=== PATIENT | female | born 1965 | race Caucasian/White ===

== ENCOUNTER 2020-01-28 08:49 | Inpatient (IN) | payer OTHER ==
[~2020-01-28] VITALS: Ht 157.5 cm; Wt 93.0 kg
[~2020-01-28 08:49] MED LIST: ACEROLA C500 MG PO; ADCIRCA20 MG PO; ASPIRIN EC81 MG PO; BABY TOP; BUPROPION HCL100 MG PO; BUPROPION HCL200 MG PO; CEPHALEXIN250 MG PO; CEPHALEXIN500 MG PO; CETIRIZINE HCL10 MG PO; CLINDAMYCIN HC300 MG PO; COLACE CLEAR50 MG PO; COLACE PO; COLACE100 MG PO; COMBIVENT INH14.7 GM INH; COOL TOP; CRANBERRY500 M1 PO; DANDRUFF SHAMP TOP; DILANTIN100 MG PO; DIVALPROEX SOD DR PO; DIVALPROEX SOD500 MG PO; ESTRADIOL1 MG PO; FERROUS SULFAT325 MG PO; FISH OIL 1,2001 EAC1 PO; FISH OIL 1,2001 EACH PO; FUROSEMIDE80 MG PO; GABAPENTIN300 MG PO; HYDROCHLOROTHIA25 MG PO; HYDROCODON-ACE1 EA10 PO; LASIX20 MG PO; LASIX80 MG PO; LETAIRIS10 MG; LETAIRIS10 MG PO; LEVAQUIN500 MG PO; LEVOTHYROXINE112 MCG PO; LEVOTHYROXINE137 MCG PO; LEVOTHYROXINE175 MCG PO; MAPAP325 MG PO; MEDROXYPROGESTE10 MG PO; MELOXICAM15 MG PO; MICARDIS40 MG PO; MICONAZOLE NITRATE TP; MILK OF MA400 MG/5 M PO; NICOTINE PATCH1 EA TD; NORCO 5-325 TA1 EACH PO; OCEAN45 ML NAS; OMEPRAZOLE20 MG PO; ONDANSETRON HCL4 MG PO; PAROXETINE HCL20 MG PO; POTASSIUM CHLO20 ME1 PO; PROAIR HFA INH; PROAIR HFA8.5 GM; PROPRANOLOL HCL10 MG PO; QVAR7.3 G1 INH; RISPERDAL M-TAB4 MG PO; RISPERDAL1 MG PO; RISPERIDONE M-0.5 MG PO; ROBAFEN100 MG/5 M PO; SIMVASTATIN20 MG PO; SOOTHE TOP; SPIRONOLACTONE50 MG PO; TRAMADOL HCL50 MG PO; TRIAMCINOLONE A15 G1 TOP; TROSPIUM CHLORI60 MG PO; TYLENOL PM EX-1 EACH PO; VENTOLIN HFA18 GM INH; VITAMIN B-121000 MC1 PO; VITAMIN C500 M1 PO; VITAMIN D PO; VITAMIN D32000 UNI1 PO; [UNRECOGNIZED DRUG - OTHER] TOP
--- OUTSIDE RECORDS SUMMARY | 2020-01-28 08:52 | XMS ---
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 No recent Security Events currently on file [place]ITERIA MET - [facility] CLAUDIA TALBOT Nurse Practitioner: Family 07/19/2016-Current PHONE: Unknown CLAUDIA TALBOT Primary Care 07/19/2016-Current PHONE: [phone] DAVE [facility] 07/19/2016-[facility] PHONE: [phone] Guidelines Source: [facility] [place] Guidelines Date: 05/29/2019 Care Coordination: Receives mental health services with [facility].\T\nbsp; Please contact [facility] for mental health concerns.\T\nbsp; Kavitha/René Rios:\T\[facility]; [phone]\T\nbs; Gal: [phone]. Carol VISIT COUNT (12 MO.) 2 DAVE Fields TOTAL 2 NOTE: Visits indicate total known visits. ED/UCC VISIT TRACKING (12 MO.) 01/28/2020 08:49 [facility] [place] TYPE: Emergency COMPLAINT: - FEVER, COUGH 05/28/2019 12:[address] 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 - Heart failure, unspecified - Allergy status to other anti-infective agents status - Bipolar disorder, unspecified - Allergy status to sulfonamides status - Other penitentiary (current) drug therapy - Allergy status to other antibiotic agents status - Gastro-esophageal reflux disease without esophagitis - Hypertensive heart disease with heart failure - Epistaxis - Allergy status to penicillin - Chronic obstructive pulmonary disease, unspecified INPATIENT VISIT TRACKING (12 MO.) No inpatient visits to display in this time frame [email or web address]
[2020-01-28] MEDS ORDERED: FUROSEMIDE40 MG PO (13:10)
[2020-01-28] MEDS ORDERED: LEVOTHYROXINE125 MCG PO (13:17)
[2020-01-28] MEDS ORDERED: PAROXETINE HCL40 MG PO (13:18)
[2020-01-28] MEDS ORDERED: RISPERIDONE0.5 MG PO (13:20)
[2020-01-28] MEDS ORDERED: RISPERDAL0.5 MG PO (13:21)
[2020-01-28] MEDS ORDERED: MONTELUKAST SOD10 MG PO (13:23)
[2020-01-28] MEDS ORDERED: BUDESONIDE-FO10.2 G1 INH (13:24)
--- NOTE | 2020-01-28 13:32 | NUR ---
54 YEAR OLD FEMALE PATIENT OF ADMITTED TO CCU ROOM [address] [facility]ACO [facility]. DROPLET ISOLATION. PT IS AWAKE AND ANSWERING QUESTIONS W/O DELAY. AMIN CATH PATENT WITH CLESR YELLOW URINE NOTED. IVF HANGING. PATIENT IS WEARING SIMPLE MASH AT THIS TIME. O2 AT 4 L NC. ADMISSION PROCESS STARTED. TEMP-103.3 VIS AMIN TEMP PROBE.
--- NOTE | 2020-01-28 13:33 | NUR ---
Medications verified using MAR from facility. Patient will use own ambrisentan 10mg tablet and own tadalafil 40mg dose [(2) x 20mg tablets]
--- NOTE | 2020-01-28 14:30 | NUR ---
Artie ALEJO RN HERE TO PLACE PICC LINE. PERMIT SIGNED. PATIENT IS COOPERATIVE.
--- NOTE | 2020-01-28 14:36 | NUR ---
BOLUS LR INFUSING.
--- NOTE | 2020-01-28 16:00 | NUR ---
UNABLE TO PLACE PICC LINE. IV 22 GA STARTED TO L HAND. IV FLUIDS NOW INFUSING. HAS NOT RECIEVED COMPLETLY RECIEVED THE LITER BOLUS OF LR THAT WAS ORDERED IN ER. MODIFIED ASSESSMENT DONE. SCD'S ON.
--- NOTE | 2020-01-28 16:04 | NUR ---
PICC INSERTION NOTE: ASKED BY DR. MONACO TO EVALUATE PATIENT FOR POTENITAL PICC LINE PLACEMENT. AFTER REVIEWING THE CHART AND INTERVIEWING THE PATIENT, NO ABSOLUTE CONTRAINDICATIONS WERE IDENTIFIED. PATIENT WAS ABLE TO SIGN THE CONSENT FORM. PATIENT'S RIGHT ARM WAS EVALUATED FIRST USING THE SITE RITE U/S. PATIENT'S BASILIC, BRACHIAL, AND CEPHALIC WERE IDENTIFIED. PATIENT'S BASILIC AND CEPHALIC WERE NOTED TO BE GREATER THAN 8 FR BY SITE RITE U/S. PATIENT'S BASILIC WAS CHOSEN FIRST TO ATTEMPT. AFTER FOLLOWING CDC RECOMMENDED GUIDELINES FOR STERILE PROCEDURE, PATIENT'S RIGHT ARM WAS PREPPED. THE BASILIC VEIN WAS ACCESSED TWICE, WITH THE FIRST ATTEMPT BEING UNSUCCESSFUL AT ADVANCING THE IV CATHETER. SECOND ATTEMPT WAS MADE AT A PROXIMAL SPOT A COUPLE CM HIGHER, AND WAS ACCESSED EASILY. THE GUIDEWIRE WOULD NOT ADVANCE PAST A CERTAIN POINT AND RESISTANCE WAS MET. THIS VEIN WAS DEACCESED AND LEFT ALONE. THE CEPHALIC VEIN WAS THEN ATTEMPTED AND EASILY ACCESSED. THE GUIDEWIRE THREADED EASILY INTO THE VEIN, WELL THE INTRODUCER. THE PICC HOWEVER DID NOT THREAD EASILY PAST A CERTAIN POINT. PATIENT'S BODY WAS REPOSITIONED AND ARM REPOSITIONED IN WAYS TO FACILITATE THE PICC ADVANCING EASIER. THE [employer] MAGNET TIP DETECTION DEVICE DID NOT SHOW THE TIP OF PICC TO BE IN OPTIMAL PLACE. AFTER 3-4 ATTEMPTS TO REPOSITION THE PICC, A DRESSING WAS APPLIED AND A CHEST XRAY TAKEN. THIS SHOWED THE TIP OF THE PICC TO BE CURLING BACK UPON ITSELF AND NOT IN ACCEPTABLE POSITION. FINAL ATTEMPT WAS MADE TO REPOSITION THE LINE, AGAIN UNDER STERILE PROCEDURE, HOWEVER THE PICC WAS PULLED BACK TOO FAR AND NOT ADVANCEABLE. A P RESSURE DRESSING WAS APPLIED OVER THE INSERTION SITE AND THE RIGHT ARM WAS LEFT ALONE. DR. MONACO UPDATED ON THESE ATTEMPTS. PATIENT TOLERATED THIS PROCEDURE FAIRLY WELL, BUT WAS VERY ANXIOUS ABOUT ANY IV POKES.
--- NOTE | 2020-01-28 16:22 | NUR ---
PATIENT IS IN ISOLATION. IS FROM [facility]. SPOKE WITH CAREGIVER MARVIN OBRIEN [phone] BY PHONE. SHE STATES PATIENT IS FULLY AMBULATORY WITHOUT DEVICES. SHE IS ABLE TO ANSWER QUESTIONS, BUT DOES NOT ALWAYS TRUSTWORTHY WITH CORRECT ANSWERS. PATIENT HAS NOT FAMILY INVOLVEMENT, NO POLST OR ADV DIRECTIVE. SHE HAS OWN TEETH, HAS PARTIALS BUT WON'T WEAR THEM. NO HEARING AIDS. WEARS GLASSES. SHE IS ON 1500ML FLUID RESTRICTION, 2000 NA RESTRICTION AND 1500 CALORIE RESTRICTION. SHE WEARS 02 2LNC AT REST, 4LNC WITH ACTIVITY, AND 5L WITH BIPAP AT NIGHT. THEY CAN BRING HER BIPAP IN IF NEEDED. THEY INTEND FOR HER TO RETURN HOME AT DISCHARGE UNLESS THEY CANNOT PROVIDE NEEDED CARE. CM WILL CONTINUE TO FOLLOW.
--- NOTE | 2020-01-28 16:28 | NUR ---
RESTFUL AT THIS TIME.
--- NOTE | 2020-01-28 17:30 | NUR ---
TOOK DINNER WELL. VERY TIRED. RESP RATE NOW 18 BPM.
--- NOTE | 2020-01-28 19:31 | NUR ---
.REPORT TO NEXT SHIFT. PATIENT IS SLEEPING. NO DISTRESS NOTED
--- NOTE | 2020-01-28 20:20 | NUR ---
SHIFT REPORT WAS RECEIVED FROM MARANDA HAJI. ASSESSMENT COMPLETED AT THIS TIME. PT WAS DOZING, BUT WOKE EASILY WHEN I ENTERED ROOM. SHE IS ALERT/ORIENTED. REPORTS CHEST PAIN FROM COUGHING, UNABLE TO RATE ON SCALE OF 10, NON-VERBAL PAIN RATING 1/10. PT HAS TEMP OF 100.8 PER AMIN TEMP PROBE, PRN TYLENOL GIVEN. LUNGS COARSE/DIM, 4L O2 VIA NC IN PLACE. SCHEDULED BREATHING TREATMENT GIVEN. HR REGULAR. BOWEL TONES ACTIVE. IV SITES PATENT, IVF INFUSING WNL. SKIN GROSSLY INTACT, SCATTERED BRUISES NOTED. AMIN CATH CARE DONE. PT TOOK EVENING MEDICATIONS WITHOUT ISSUE. NO FURTHER REQUESTS AT THIS TIME, CALL LIGHT WITHIN REACH.
--- NOTE | 2020-01-28 22:37 | NUR ---
IN TO CHECK ON PT, WHO IS RESTING COMFORTABLY. 7-UP AND JELLO PROVIDED PER REQUEST. TEMP REMAINS ELEVATED AT 100.9, WILL CONTINUE TO MONITOR.
--- NOTE | 2020-01-29 00:45 | NUR ---
ASSESSMENT COMPLETED. PT DENIES PAIN. PRN TYLENOL GIVEN FOR ELEVATED TEMP 100.6. LUNGS REMAIN COARSE/DIM, 4L NC IN PLACE, SCHEDULED BREATHING TREATMENT GIVEN. HR REGULAR. AMIN REMAINS PATENT, DRAINING FREELY. PT DENIES NEEDS AT THIS TIME, CALL LIGHT WITHIN REACH.
--- NOTE | 2020-01-29 02:11 | NUR ---
PT APPEARS TO BE SLEEPING AT THIS TIME, NO APPARENT DISTRESS. RESPIRATIONS ARE EVEN AND UNLABORED, 4L O2 VIA NC IN PLACE. AMIN DRAINING FREELY. HR: 75, RR: 13, SPO2: 91%. WILL ALLOW FOR REST AND CONTINUE TO MONITOR.
--- NOTE | 2020-01-29 04:14 | NUR ---
ASSESSMENT COMPLETED. PT SLEEPING, APPEARS COMFORTABLE. LUNGS REMAIN SLIGHTLY COARSE AND DIM, INCREASED O2 TO 5L SINCE SPO2 WAS 88% ON 4L. HR REGULAR. BOWEL TONES ACTIVE. AMIN PATENT AND DRAINING FREELY. WILL ALLOW FOR REST AND CONTINUE TO MONITOR.
--- NOTE | 2020-01-29 05:44 | NUR ---
PT REPORTED A BLOODY NOSE. HUMIDIFICATION ADDED TO OXYGEN WHICH REMAINS AT 5L. MORNING MEDICATIONS ADMINISTERED WITHOUT ISSUE. FRESH ICE WATER AND A WARM BLANKET PROVIDED. CALL LIGHT WITHIN REACH, NO FURTHER REQUESTS AT THIS TIME.
--- NOTE | 2020-01-29 07:30 | NUR ---
REPORT RECIEVED. PATIENT IS ASLEEP IN BED. NO DISTRESS NOTED.
--- NOTE | 2020-01-29 08:00 | NUR ---
WOKE PATIENT. MODIFIED ASSESSMENT DONE. PATIENT REMAINS IN DROPLET ISOLATION. PAPR BEING USED BY RN AT THIS TIME.
--- NOTE | 2020-01-29 08:10 | NUR ---
DR. MONACO HERE TO SEE PATIENT, ORDERS RECIEVED TO DECREASE IVF TO 65 ML. BRENNAN PRINGLE DC'Angel Luis. UP TO COMMODE.
--- NOTE | 2020-01-29 08:20 | NUR ---
LARGE STOOL, THEN TO CHAIR FOR BREAKFAST.
--- NOTE | 2020-01-29 11:25 | NUR ---
PATIENT IS SLEEPING. NO DISTRESS NOTED.
--- NOTE | 2020-01-29 12:42 | NUR ---
SITTING UP IN BED FOR LUNCH.
--- NOTE | 2020-01-29 13:10 | NUR ---
Visit deferred as awaiting covid results. Spoke with Rn and pt is currently sleeping and unable to speak on the phone. Pt. lives at [facility] and [place] [phone] is her CG. Will check with RN's tomorrow for follow up. Plan is for pt to return to [facility] when medically cleared.
--- NOTE | 2020-01-29 13:14 | NUR ---
INC OF STOOL AND URINE UP TO BR TO CLEAR PATIENT. TRANSFERS WELL. THEN TO CHAIR TO FINISH LUNCH.
--- NOTE | 2020-01-29 15:15 | NUR ---
CHILLING. REMAINS IN CHAIR. TEMP AX 101.2. TO COMMODE WITH ASIST TO EXPELL URINE AND STOOL THEN TO BED. HR TO 124.
--- NOTE | 2020-01-29 15:20 | NUR ---
DR. SALAS UPDATED. BC X 2 ORDERED. IBUPROFEN 200 MG ORDERED AND GIVEN. PATIENT IN BED WITH HOB ELEVATED. C/O RIGHT SHOULDER PAIN. STATES SHE GETS THIS TYPE OF PAIN WHEN SHE GETS TENSE.
--- NOTE | 2020-01-29 16:30 | NUR ---
ASSESSMENT UNCHANGED. INC OF URINE AND STOOL.
--- NOTE | 2020-01-29 19:26 | NUR ---
TOOK DINNER WELL. INC OF URINE. ATTENDS OFF. STOOD PATIENT AT BESIDE TO MOVE TO HOB. REMAINS SOB WITH EXERTION. OXYMASK AT 4 L
--- NOTE | 2020-01-29 21:00 | NUR ---
SHIFT REPORT WAS RECEIVED FROM MARANDA HAJI. ASSESSMENT COMPLETED AT THIS TIME. PT REMAINS IN DROPLET AND CONTACT PRECAUTIONS. PT DENIES PAIN. TEMP: 100.6, PRN TYLENOL GIVEN. LUNGS LIGHTLY COARSE/DIM, 4L OXYMASK IN PLACE, DENIES SOB AT REST, SCHEDULE VENTOLIN GIVEN. HR REGULAR. BOWEL TONES ACTIVE. PT REPORTS URINE INCONTINENCE, NEW BED LINENS AND CHUX PROVIDED. PT UP TO BSC WITH SBA DURING BED CHANGE, REPORTS MILD SOB WITH ACTIVITY. PT VOIDED ANOTHER 100 AND HAD SMEAR OF BM. PERICARE PROVIDED AND PT RETURNED TO BED. IV SITES PATENT, IVF INFUSING WNL. CALL LIGHT WITHIN REACH. DISCUSSED PLAN OF CARE WITH PT AND ANSWERED ALL QUESTIONS. NO FURTHER REQUESTS AT THIS TIME.
--- NOTE | 2020-01-30 01:00 | NUR ---
WENT INTO ROOM ABOUT 0000 BECAUSE PT DESATURATED TO 85% ON 4L. COULD NOT GET SATS TO MAINTAIN ABOVE 90% UNTIL OXYGEN WAS AT 12L. LUNG SOUNDS WERE UNCHANGED FROM PREVIOUS ASSESSMENT AND PT WAS ABLE TO SPEAK IN FULL SENTENCES AND ANSWER QUESTIONS APPROPRIATELY. CALLED Sharyn ZAMBRANO FOR ADVICE. WE TRIED OTHER SPO2 PROBES AND AFTER BOOSTING PT UP IN BED AND SITTING UP HER HEAD OF BED DID SATURATIONS FINALLY START TO INCREASE. OXYGEN WAS THEN ABLE TO BE TITRATED DOWN TO 6L. PT INCONTINENT OF URINE, UP TO BS TO VOID 100ML MORE WHILE BED WAS CHANGED. PERICARE, NEW CHUX PROVIDED, PT THEN RETURNED TO BED. TYLENOL GIVEN FOR TEMP OF 100.5. IVF INFUSING WNL. CALL LIGHT WITHIN REACH.
--- NOTE | 2020-01-30 05:30 | NUR ---
ASSESSMENT COMPLETED AND MEDICATIONS ADMINISTERED. PT REPORTS 5/10 RIGHT SHOULDER PAIN, PRN TYLENOL GIVEN. LUNGS COARSE, SLIGHT EXPIRATORY WHEEZE NOTED IN UPPER LOBES, SCHEDULED BREATHING TREATMENT GIVEN. PT INCONTINENT OF LARGE AMOUNT OF URINE, VOIDED 50ML MORE WHILE ON BSC WHILE I CHANGED CHUX. YARI CARE COMPLETED. PT PROVIDED WITH ICE WATER AND JUICE. NO FURTHER REQUESTS AT THIS TIME, CALL LIGHT REMAINS WITHIN REACH, PHONE ALSO PLACED WITHIN REACH PT IS EXPECTING A PHONE CALL FROM A FRIEND THIS MORNING.
--- NOTE | 2020-01-30 06:38 | NUR ---
PT DESATURATED TO 84%, ELEVATED HEAD OF BED AND ENCOURAGED HER TO TAKE SOME DEEP BREATHS. OXYGEN TITRATED TO 8L VIA OXYMASK.
--- NOTE | 2020-01-30 08:18 | NUR ---
PATIENT ALERT AND ORIENTED, REPORT RECEIVED FROM COMPUTER TEACHER RN'S. PATIENT O2 FLOWING AT 12L VIA OXIMASK. O2 SAT AT 90% WHEN RESTING IN BED. STATES STOMACH FEELS A LITTLE UPSET. READY TO ORDER BREAKFAST. UP TO COMMODE WITH 1-2 PERSON ASSIST. HAD SOME URINE OUTPUT. BACK TO BED.
--- NOTE | 2020-01-30 08:30 | NUR ---
Pt was discussed in [address] Costello. He states his concern as there is not a Polst in place. He is concerned at pt is using 12Lo2 and is febrile. I will contact [facility] to see what is required for a Polst to be completed. Called and spoke with Neda from [facility]. She states there is team who can meet and make this decision. Due to Covid virus most are working from home. She will call and check if they can meet by conference line. Hospital line number given and access code by email with meeting request for 3pm meeting. She will forward to other members. She and supervisor dimension warehouse have multiple question about pt. Requested they speak with Dr Costello at 3 pm and ask questions.
--- NOTE | 2020-01-30 09:33 | NUR ---
DR Costello and Beena RT in room to see patient. Also, Mary RN in room.
--- NOTE | 2020-01-30 09:43 | NUR ---
RT in room with patient. CPAP in place on 8L at 40% with an SpO2 of 92%. Respiratory rate of 30 with labored breaths. AM medications given. Patient tearful, emotional support provided by nursing staff.
--- NOTE | 2020-01-30 11:21 | NUR ---
Patient laying in bed, awake and alert. Gives thumbs up to nursing staff through glass. Patient wearing CPAP at 10L with an SpO2 of 92%. Respiratory rate of 26. No needs at this time, call light within reach.
--- NOTE | 2020-01-30 12:16 | NUR ---
UP TO CHAIR WITH STANDBY ASSIST. USING OXYMASK WHILE UP. ASKING HER FOR SPUTUM SAMPLE. CHANGING LINENS BECAUSE HAD LARGE AMOUNT OF URINE INCONTINENCE.
--- NOTE | 2020-01-30 12:41 | NUR ---
BACK TO BED, STATES NOT WANTING TO EAT LUNCH NOW. STOMACH NOT FEELING VERY GOOD. DOESN'T FEEL LIKE THROWING UP. CPAP BACK ON. BACK TO BED AFTERING BEING UP IN CHAIR AND USING COMMODE. WAS UP FOR ABOUT 40 MINUTES.
--- NOTE | 2020-01-30 14:08 | NUR ---
DR SALAS TALKING WITH PATIENT VIA BABY MONITOR. I HELPED HER UP TO USE COMMODE AND URINATE. BACK TO BED. USING OXYMASK CURRENTLY. PLAN FOR RT TO COME IN AND SETUP CPAP MACHINE.
--- NOTE | 2020-01-30 15:00 | NUR ---
Conference call with support people from [facility]. Members on the call: myself, Dr. Costello, Mynor Franz, Marva Vasquez Dean For Student Affairs, Radha Villa Residential career resource technician, Leticia Mills rn, Nadiya Alba Program Directory, Filemon Luz [employer]ability [employer] [place], Wilton Morley Csr. Discussion was held regarding DNR/DNI for Margarita Rowley as there was posibility pt would be intubated earlier today. Dr. Costello was able to speak with pt and felt she was able to speak for herself and after speaking with her twice she did not want to be intubated. Pt is her own decision maker/guardian. He explained to group, pt has pulmonary hypertension which would make her very high risk to use a ventilator. Great difficulty to extubate and get her off the vent. Explained pt has been on CPAP, oxygen levels have doubled. Concern is intubation if patient status worsens. Pt. does not have Polst or Health Directive in writing. Pt requested he call her friend, Britta which he did. Discussed Polst was completed, but can always be voided if patient changes her mind. Questions were answered by Dr. Costello and he excused himself and he had to leave. Further conversation regarding plan for when and how pt's should return and updated if 02 is needed. Explained if o2 is needed, these cases will be considered acute and insurance/medicare will not pay for initial 02. DME will require payment up front. Marva states concern they do not have PPE. Stated understanding, everyone is having the same issues. They request orders when pt returns and reminded Dr will write discharge orders and sign and a DC summary. All will be faxed when pt is nearing discharge. Requested if case coordinator could review Polst with patients and have them completed prior to hospital admission. Asked if they need Polst forms and they state they have. Informed we are asking all PRISON, AFC, SNFs to have Polsts completed and bring to the ER. Explained we just need to know what the pt's wishes are, and we will follow.
--- NOTE | 2020-01-30 16:20 | NUR ---
PATIENT CALLED, SAYING NEEDS BED CHANGED WAS INCONTINENT OF URINE. LINENS CHANGED. UP TO CHAIR DURING THIS. TOLERATED WELL. USING OXYMASK AT 7L. O2 SATS 92-97%. BACK TO BED. PRN TYLENOL GIVEN FOR HEADACHE 6/10 PAIN.
--- NOTE | 2020-01-30 17:01 | NUR ---
UNABLE TO LISTEN WELL TO PATIENT LUNG SOUNDS AND ABD SOUNDS DUE TO ME WEARING THE PAPR MACHINE.
--- NOTE | 2020-01-30 17:10 | NUR ---
HAS BEEN REQUIRING LESS O2 TODAY. STARTED USING CPAP AND THIS HAS HELPED. TOLERATING WELL. WEAKNESS, HAS BEEN UP TO COMMODE SEVERAL TIMES, WEARING ATTENDS. BED REST WITH COMMODE.
--- NOTE | 2020-01-30 18:23 | NUR ---
At about 1745 patient calling for help, motioning like she can't catch her breath. Patient took off CPAP and didn't put on other oxygen. Mary LOW putting on PPE quickly and patient O2 level dropped down to 72% on room air. Mary in room and helped patient place CPAP back on. RT called and coming. O2 level increased to 75% from 30%. Over the course of about 10 minutes SPO2 level back up to 92%. RT watching monitor and instructing Mary LOW on settings. Oxymask placed in reach of patient and instructed to place on face if she takes off her CPAP.
--- NOTE | 2020-01-30 18:41 | NUR ---
STATES HEADACHE GONE, TRYING TO EAT SOME JELLO AND WHEN TAKING OFF O2 MASK FOR EVEN 1 MINUTE HER SATURATIONS DROP. INSTRUCTED HER TO KEEP O2 MASK ON MUCH POSSIBLE. USING OXYMASK.
--- NOTE | 2020-01-30 18:55 | NUR ---
STATES FEELING WHEEZY AND TIGHTNESS WHEN BREATHING. INHALER THAT WAS SCHEDULED FOR 8PM GIVEN EARLY. RT NOTIFIED.
--- NOTE | 2020-01-30 20:15 | NUR ---
SHIFT REPORT WAS RECEIVED FROM MARANDA ROUSSEAU. ASSESSMENT COMPLETED AT THIS TIME. PT DENIES PAIN. PT TOOK EVENING MEDICATIONS WITHOUT ISSUE. PT INCONTINENT OF URINE, NEW ATTENDS AND PERICARE PROVIDED. IV SITES PATENT, SALINE LOCKED. SCD'S IN PLACE. UNABLE TO AUSCULTATE DURING ASSESSMENT DUE TO PAPR PPE. PT DENIES SOB WHILE AT REST. CPAP PLACED ON PT. CALL LIGHT WITHIN REACH, NO FURTHER REQUESTS AT THIS TIME.
--- NOTE | 2020-01-30 22:03 | NUR ---
PATIENT APPEARS TO BE SLEEPING, NO APPARENT DISTRESS. CPAP REMAINS IN PLACE. VITAL SIGNS STABLE. WILL ALLOW FOR REST AND CONTINUE TO MONITOR.
--- NOTE | 2020-01-30 23:37 | NUR ---
PT CALLED TO REPORT THAT SHE HAD BEEN INCONTINENT OF URINE. PERICARE AND NEW ATTENDS PROVIDED. ASSESSMENT COMPLETED. PT HAS TEMP OF 100.8, PRN TYLENOL GIVEN. CONTINUES TO DENY PAIN AND SOB. CPAP REMOVED FOR MEDICATIONS AND THEN REPLACED, REMAINS AT 50%. PT DENIES FURTHER REQUESTS AT THIS TIME, CALL LIGHT WITHIN REACH.
--- NOTE | 2020-01-31 01:50 | NUR ---
PT HAD REMOVED CPAP TO TAKE A DRINK AND WAS UNABLE TO PUT IT BACK ON WITHOUT ASSISTANCE. RECHECKED TEMP AFTER TYLENOL DOSE, TEMP INCREASED TO 102.1, WILL RECHECK AND READMINISTER TYLENOL IF NEEDED. PT DENIES INCONTINENCE AT THIS TIME. CPAP BACK ON PT. CALL LIGHT WITHIN REACH.
--- NOTE | 2020-01-31 04:20 | NUR ---
ASSESSMENT COMPLETED. PT DENIES PAIN. TEMP HAS TO 99.1. SPO2 HAS BEEN HOVERING 88-89% ON CPAP@50%, SPOKE WITH Sharyn VAZQUEZ, AND INCREASED FIO2 TO 60%, SATS NOW 91-92%. PT DENIES SOB. PT INCONTINENT OF LARGE AMOUNT OF URINE, NEW ATTENDS AND PERICARE PROVIDED. NO FURTHER REQUESTS AT THIS TIME, CALL LIGHT WITHIN REACH.
--- NOTE | 2020-01-31 06:30 | NUR ---
IN TO GIVE MORNING MEDICATIONS, PT REMAINS AFEBRILE AT 98.5. INCONTINENT OF URINE, NEW ATTENDS AND PERICARE PROVIDED. BREAKFAST ORDER OBTAINED AND CALLED DOWN. FRESH WATER AND APPLE JUICE PROVIDED. PT PLACED BACK ON CPAP. NO FURTHER REQUESTS AT THIS TIME.
--- NOTE | 2020-01-31 08:30 | NUR ---
Pt discussed in MDT. Remains on CPAP.
--- NOTE | 2020-01-31 08:58 | NUR ---
BOTH IV SITES ARE INTACT, NO REDENESS OR SWELLING NOTED, PT DENIES PAIN AT EITHER SITE WITH FLUSH. PT REMINDED TO PLEASE TELL NURSING STAFF IF IV SITES BECOME PAINFUL.
--- NOTE | 2020-01-31 09:00 | NUR ---
Spoke with Diane Barber per antonio ellis. Pt. eating and has CPAP off. Pt easily becomes sob, and has difficulty speaking. Feeling Ok. Updated friend, Lali Trinh, called and will call later. Pt states, "have a beautiful day". I thanked her.
--- NOTE | 2020-01-31 09:10 | NUR ---
Received call from Filemon Luz, [employer] [place]. He is attempting to call to Margarita. Informed I will transfer as he was transfered to . Call transferred to CCU.
--- NOTE | 2020-01-31 09:15 | NUR ---
AT APPROXIMATLY 0910 ASSISTED PT TO CALL FRIEND JUAN ALLEN, PT ONLY ABLE TO LEAVE A VOICE MAIL.
--- NOTE | 2020-01-31 09:32 | NUR ---
PT GIVEN 500 MG PO TYLENOL FOR C/O 03/09 HEADACHE. PT STATES "JUST COUGHING, IT'S MAKING MY HEAD ACHE"
--- NOTE | 2020-01-31 09:50 | NUR ---
PT PLACED ON VAPOTHERM HIGHFLOW NASAL CANULA, ABLE TO MAINTAIN SATS 92-95% WITH FIO2 OF 85%. PT STATES "THIS THING IS REALLY LOUD". MASK ALSO PLACED OVER PT MOUTH AND NOSE PER PROTOCOL, PT WILFRED WELL.
--- NOTE | 2020-01-31 10:40 | NUR ---
ALL LINENS CHANGED ON BED, YARI CARES DONE, CLEAN ATTENDS IN PLACE. PT GIVEN PARTIAL BEDBATH SHE STATES "I'M REALLY WORN OUT". PT SCOOTED UP IN BED, AND SITTING UP TO EAT BREAKFAST, PT REQUIRES ASSISTANCE TO EAT SHE IS TREMULOUS. PT ONLY ABLE TO WILFRED 25% OF HER BREAKFAST. AFTER BREAKFAST ATTEMPTED TO CALL PT FRIEND JUAN ALLEN FOR A SECOND TIME THIS MORNING, LEFT A VOICEMAIL PER PT REQUEST.
--- NOTE | 2020-01-31 12:08 | NUR ---
pt off cpap for a break and to eat lunch. pt on vapotherm at 40L 85% FIO2.
--- NOTE | 2020-01-31 12:40 | NUR ---
pt back on cpap for rest, pt finished with lunch. pt reports headache has resolved. pt able to sharon 25% of lunch. pt talked on the phone with caregiver Radha for approximatly 5 min. IV sites are intact, no redness or swelling noted, fluids and flushes infuse easily, pt denies pain at either site.
--- NOTE | 2020-01-31 13:02 | NUR ---
pt appears to be sleeping at this time with cpap in place.
--- NOTE | 2020-01-31 14:09 | NUR ---
AT APPROXIMATLY 1330 PT TOOK CPAP OFF TO SCRATCH/BLOW NOSE. WENT INTO ROOM TO ASSIST PT WITH SUPPLIMENTAL 02. PT REFUSED CPAP AT THIS TIME, WAS AGREEABLE TO VAPO THERM, SETTING CHANGED TO 35L FLOW, TEMP 33, FIO2 OF 80% PER YOLIS FROM RT. PT SEEMS TO BE ABLE TO WILFRED BETTER. PT CHANGED FOR INCONTINENCE OF URINE, LARGE AMOUNT. PT COOPERATIVE WITH CHANGING, ABLE TO LIFT HIPS TO HELP, FOLLOWS DIRECTIONS WELL. PT REQUESTED AND WAS GIVEN 2 WARM BLANKETS. CURRENT ORAL TEMP OF 99.5. PT GIVEN SIPS OF WATER AND JUICE. PT STATES "I'M SPOILED NOW".
--- NOTE | 2020-01-31 14:18 | NUR ---
Notified by Dr. Costello pt's Covid test returned negative. Called and updated Radha. She is relieved and states all staff have been very concerned about patients and staff exposure. She hopes this will help everyones concern.
--- NOTE | 2020-01-31 14:52 | NUR ---
PT ASSISTED UP TO THE CHAIR FROM THE BED. PT AT THIS TIME IS ON 15L OXYMASK SHE HAS REQUESTED A BREAK FROM THE VAPOTHERM AND THE CPAP. PT GIVEN PO 500 MG TYLENOL FOR TEMP OF 99.5, PT ALSO GIVEN CEPACOL THROAT LOZENGE FOR C/O SORE THROAT. PT REPORTS SOME SLIGHT LIGHTHEADEDNESS WITH ACTIVITY. PT ATTEND CHANGED FOR INCONTINENCE OF URINE. PT IS ALERT AND ORIENTED X4, COOPERATIVE AND POLITE. PT HAS CALL LIGHT WITHIN REACH.
--- NOTE | 2020-01-31 14:56 | NUR ---
UNABLE TO VISIT PT DUE TO PRECAUTIONS, WILL FOLLOW
--- NOTE | 2020-01-31 15:30 | NUR ---
IV SITE IN RT AC DC'D IT WAS NOT PATIENT. PT WILFRED WELL, TIP OF CATH IS INTACT.
--- NOTE | 2020-01-31 16:50 | NUR ---
PT ASSISTED BACK TO BED FROM CHAIR, TWO PERSON ASSIST. CHANGED INCONTINENT ATTENDS. PT HAS CALL LIGHT WITHIN REACH. WILFRED ACTIVITY WELL.
--- NOTE | 2020-01-31 17:24 | NUR ---
PATIENT ARRIVED BACK FROM PACU AT 1705. PATIENT IS ALERT AND HAVING SOME PAIN. PATIENT RECIEVED FENTANYL PRIOR TO TRANSFER. PATIENT IS NOTED TO HAVE A LOT OF OOZING FROM THE SITE. MD STEVENSON IS AWARE PER REPORT FROM PACU. NO OTHER NEEDS AT THIS TIME. WILL CONTINUE TO CLOSELY MONITOR.
--- NOTE | 2020-01-31 19:05 | NUR ---
AT ABOUT 1830 PT HAS TAKEN OFF CPAP TO EAT DINNER. PT O2 SATS IN LOW 80% WITH ROOM AIR. PT PLACED ON 15L OXYMASK. PT RE-TESTED FOR COVID VIA NASOPHARONGEAL SWAB TO BOTH NARES. PT WILFRED WELL. PT GIVEN FRESH JUICE AND A WARM BLANKET, THEN PLACED BACK ON CPAP.
--- NOTE | 2020-01-31 20:15 | NUR ---
PT ASSESSMENT, VS AND I&O COMPLETED. PT TOLERATING VAPOTHERM @35L, 90% FIO2 WELL. PT VERBALIZES UNDERSTANDING OF THE NEEDS FOR O2. PT STATES "EVERYONE AROUND HER HAS BEEN SO NICE.", PT COOPERATIVE, ORIENTED X3. PT ASSITS WITH ADJUSTMENT OF VAPOTHERM NOSE PIECE. IV CDI, WNL, FLUSHED WELL. TREMORS NOTED. SCATTERED BRUISING WITH A LARGE BRUISE NOTED ON RUE FROM PICC LINE ATTEMPT. SCDs IN PLACE, PT TOLERATING SCDs WELL. REDNESS NOTED AROUND NARES. PT DEINIES PAIN AT THIS TIME. COUGH IS OCCASSIONAL WITH THIN, BLOODY SPUTUM THAT THE PT SPITS INTO KLEENEX. BRIEFS CHANGED WITH PT ASSIST. PT MOVED HERSELF UP IN BED AT RN REQUEST. UNABLE TO ASSESS LUNG SOUNDS DUE TO PPE PAPR. RESP RATE EVEN, SHALLOW. SCHEDULED MEDS PROVIDED. PT REQUESTS A SNACK, PROVIDED. NO OTHER NEEDS AT THIS TIME. CALL LIGHT IN REACH.
--- NOTE | 2020-01-31 22:02 | NUR ---
PT COMPLAINS OF HEADACHE. PRN PAIN MED PROVIDED. PT PLACED ON CPAP FROM VAPOTHERM TO SLEEP. HR 84, SPO2 94%. ICE WATER PROVIDED. PT REPOSITIONED. NEW SPO2 FINGER MONITOR PROVIDED. NO OTHER NEEDS. CALL LIGHT IN REACH.
--- NOTE | 2020-01-31 22:30 | NUR ---
PT HAS REPEATEDLY REMOVED THE CPAP TO RID HERSELF OF SPUTUM. RT NOTIFIED AND PT HAS BEEN PLACED BACK ON VAPOTHERM. NO OTHER NEEDS AT THIS TIME. CALL LIGHT IN REACH. HR SR @ 72. SPO2 94%, VAPOTHERM 35L @ 90% FIO2. NO OTHER NEEDS AT THIS TIME. CALL LIGHT IN REACH.
--- NOTE | 2020-01-31 23:23 | NUR ---
PT RESTING IN BED, EYES CLOSED. RR 24, EVEN, SHALLOW. HR SR @75. VAPOTHERM 35L @ 90%FIO2. CALL LIGHT IN REACH.
--- NOTE | 2020-01-31 23:58 | NUR ---
PT RESTING IN BED, EYES CLOSED. HR SR @ 78. RR 24, EVEN, SHALLOW. VAPOTHERM 35L @90% FIO2. CALL LIGHT IN REACH. SOUND MONITOR ON.
--- NOTE | 2020-02-01 00:20 | NUR ---
PATIENT CALLING OUT FOR NURSE TO PUT HER HEAD DOWN. ASSURED PATIENT STAFF WOULD BE IN A FEW MINS. PATIENT CONTINUED TO ASK AND DID NOT APPEAR TO UNDERSTAND THIS RN OVER THE MONITOR. WHEN STAFF ENTERED ROOM. PATIENT DOES NOT ANSWER QUESTIONS APPROPRIATELY. UNSURE IF STAFF IS UNABLE TO HEAR STAFF OR IS CONFUSED. ORAL TEMP 100.4 F. O2 SAT 89% ON VAPOTHERM 90% Fi02. BP 88 SYSTOLIC. PATIENT APPEARS DROWSEY AND DIAPHORETIC. MD CONTACTED. RN AT BEDSIDE.
--- NOTE | 2020-02-01 00:47 | NUR ---
MARKY RN IN ROOM REPORTING PT IS LETHARGIC, NOT HELPING WITH REPOSITIONG. BP 88/50, RR 26. SPO2 90% ON VAPOTHERM A35L AT 90%. PT ALSO HAS A TEMP OF 100.4F ORALLY. NOTIFIED. MD COMING TO THE ROOM TO ASSESS.
--- NOTE | 2020-02-01 01:47 | NUR ---
ORDERS RECEIVED FOR LEVOPHED, AMIN CATH, AND VBG. NEW IV SITE ESTABLISHED IN RIGHT UPPER ARM. LEVOPHED STARTED, ADEQUATE BP AT 5 MCG/MIN. GOAL OF MAP > 60. AMIN PLACED. 75 MLS OUT OF CLEAR YELLOW URINE. ORAL TYLENOL PROVIDED. PATIENT TOLERATING CPAP WITH PRESSURE 15, 65% FiO2. RR 25-35. PATIENT IS RESPONSIVE BUT CONTINUES TO BE DROWSEY.
--- NOTE | 2020-02-01 02:42 | NUR ---
SCHEDULED MEDICATION PROVIDED. LEFT HAND IV WNL, CDI, FLUSHED WELL. RIGHT AC IV CDI, WNL, IV MEDICATION INFUSING. AXILLARY TEMP 101.0F. COVERS REMOVED EXCEPT SHEET. CPAP ON, RR 20, EVEN, SHALLOW. NO OTHER NEEDS, CALL LIGHT IN REACH.
--- NOTE | 2020-02-01 03:25 | NUR ---
LEVOPHED TITRATED TO ACHEIVE MAPS GREATER THAN 60. LEVOPHED HAD BEEN INFUSING AT 2 MCG/MIN FOR LAST HOUR. LAST TWO BP HAD MAP < 60, TITRATED TO 4 MCG/MIN. NEXT BP WAS 100/39 WITH MAP OF 55. WILL CONTINUE TO MONITOR. PATIENT IS DROWSEY BUT RESPONDS TO NAME. ON CPAP, UNABLE TO ANSWER QUESTIONS AT THIS TIME. AXILLARY TEMP 100.4 F. URINE OUTPUT 775 ML AFTER LASIX WAS GIVEN. IV SITE IN RIGHT UPPER ARM WNL.
--- NOTE | 2020-02-01 03:48 | NUR ---
ASSESSMENT COMPLETED. IVs WNL, CDI. CMS INTACT. CAPILLARY REFILL < 3 SECONDS. AMIN WNL, LIGHT YELLOW URINE, PT TOLERATING WELL. CPAP @ 65%, SPO2 90%. HR SR @ 79. UNABLE TO ASSESS LUNG, HEART AND BOWEL TONES DUE TO PAPR PPE. RR EVEN SHALLOW @ 25 PER MIN. SKIN WAR, MOIST, FLUSHED. NO EDEMA NOTED. PT ORIENTED TO PERSON AND PLACE. NO OTHER NEEDS AT THIS TIME. CALL LIGHT IN REACH. SOUND MONITOR ON.
--- NOTE | 2020-02-01 04:32 | NUR ---
PATIENT TACHYCARDIC UP TO 160'S. NOTIFIED BY VEE LOW. LEVOPHED TITRATED DOWN AND IN STAND BY. PATIENT'S LAST BP 94/42 (52). PHENYLEPHRINE IN STAND BY. PATIENT IS VERY DROWSY. RR 25. O2 SAT 88-92% ON CPAP AT 65% Fi02. BREATHING APPEARS MORE LABORED. PATIENT WAKES TO HER NAME, SAYS "YES" WHEN ASKED IF SHE IS DOING ALRIGHT.
--- NOTE | 2020-02-01 04:47 | NUR ---
SCHEDULED MED PROVIDED. CPAP ON, FIO2 65%. RR 21, EVEN. HR SR @79. AXILLARY TEMP 100.1F. SPO2 89%. NO OTHER NEEDS AT THIS TIME. CALL LIGHT IN REACH.
--- NOTE | 2020-02-01 05:06 | NUR ---
RR REMAINS 22-25, O2 SAT HAS DECREASED TO 84-85% ON 65% Fi02 VIA CPAP. INCREASED TO 75% Fi02 ON CPAP.
--- NOTE | 2020-02-01 06:30 | NUR ---
SCHEDULED MEDICATIONS PROVIDED. HR SR @ 71. SPO2 92%, CPAP ON, 75% FIO2. IVs WNL. RESP EFFORT APPEARS BETTER, MORE DEPTH TO BREATH. RR 22, EVEN. AMIN EMPTIED, YELLOW URINE. PT ORIENTED TO PERSON AND PLACE. CALL LIGHT IN REACH.
--- NOTE | 2020-02-01 08:00 | NUR ---
Spoke with pts nurse. Pt remains on precautions. Informed, pt did not have a good night. Pt is not able to speak on the walkie talkie at this time.
--- NOTE | 2020-02-01 09:28 | NUR ---
PT IV SITE IN LEFT HAND IS SLUGGISH TO FLUSH, NOT OBVIOUS SIGNS OF INFILTRATION, WILL CONTINUE TO MONITOR. IV SITE IN RT ARM IS INTACT, NO REDNESS OR SWELLING, FLUSHES EASILY. PT DENIES PAIN AT EITHER SITE. PT IS ALERT AND ORIENTED X4, PT IS COOPERATIVE. PT ABLE TO DRINK GOOD AMOUNTS OF JUICE AND WATER, WILFRED PO PILLS EASILY. URINARY CATH IN PLACE QS URINE OUTPUT. PT DENIES DESIRE FOR BREAKFAST THIS AM.
--- NOTE | 2020-02-01 11:23 | NUR ---
UNABLE TO VISIT PT DUE TO PRECUTIONS
--- NOTE | 2020-02-01 11:25 | NUR ---
IN PT ROOM ASSISTING HER TO REPOSITION IN BED FOR COMFORT. PER PT'S REQUEST BRUSHING HER HAIR, ATTEMPTING TO BRUSH OUT LARGE TANGLES. NATASHA ALLEN CALLED AND WAS ABLE TO TALK WITH PT FOR SEVERAL MINUTES, PT THEN HANDED PHONE TO THIS RN AND SAID "NOW YOU TALK TO HER". DISCUSSED BASIC PT STATUS AT THIS TIME AND DISCUSSION THAT PT HAD WITH EARLIER TODAY ABOUT WANTING TO CHANGE HER CODE STATUS TO FULL CODE. THE PHONE WAS THEN GIVEN BACK TO KEO, SHE TALKED WITH NATASHA FOR A FEW MORE MINUTES.
--- NOTE | 2020-02-01 11:45 | NUR ---
IV SITE IN LEFT WRIST REMAINS SLUGGISH, STILL FLUSHING, PT DENIES PAIN AT THE SITE, NO SWELLING OR REDNESS NOTED, WILL CONTINUE TO MONITOR. IV SITE IN RT FOREARM IS INTACT, NO REDNESS OR SWELLING NOTED, FLUIDS AND FLUSHES INFUSE EASILY. PT IS NOW BACK ON CPAP AND RESTING QUIELY WITH HER EYES CLOSED.
--- NOTE | 2020-02-01 13:15 | NUR ---
WHILE COVERING FOR PTS PRIMARY NURSE. PT PUT USER SUPPORT ANALYST SUPERVISOR LIGHT. THIS RN IN ROOM TO SEE PT. PT REPORTS SHE WOULD LIKE TO HAVE HER CPAP OFF AND WEAR THE OXYMASK. PLACED ON OXY MASK AT 15 L. THIS DOES NOT MAINTAIN PTS O2 SATS. PLACED ON NON REBREATHER AT 100%. PT ABLE TO MAINTAIN SATS IN HIGH 80S TO LOW 90S ON THIS. PT THEN BEGINS TO COMPLAIN OF SUBSTERNAL CHEST PAIN. WHEN ASKED TO DESCRIBE, PT STATES "I DON'T KNOW, IT JUST HURTS." NURSE OUTSIDE OF ROOM NOTIFIED OF THIS, AND CALLS DR SALAS. ORDER FOR EKG, TROP DRAW, AND ASPIRIN. EKG COMPLETED AT 1320, PT GIVEN ASPIRIN, AND TROP DRAWN FROM LEFT FOREARM BY RN. PT REPORTS PAIN IS BEGINNING TO RESOLVE. PLACED BACK ON CPAP, PT SATTING 95%. RN EXCITED ROOM.
--- NOTE | 2020-02-01 14:45 | NUR ---
PT REPORTS SHE WOULD LIKE TO SIT UP IN THE CHAIR. ONE PERSON ASSIST UP TO CHAIR. PT STATES "I'M HUNGRY". ORDERED SOME SOFT FOOD FOR PT FROM [employer]. PT WILFRED SITTING UP WELL.
--- NOTE | 2020-02-01 14:51 | NUR ---
SPOKE WITH PT, SPECIFICALLY ASKED IF SHE WANTS INFORMATION RELEASED TO POWDER ROOM ATTENDANT AT THIS TIME. PT STATES SHE DOES NOT WANT ANY INFORMATION GIVEN OUT RIGHT NOW. POWDER ROOM ATTENDANT CALLED AND TOLD SHE CAN COME VISIT, BUT STAFF WILL NOT BE GIVING ANY INFORMATION OUT.
--- NOTE | 2020-02-01 15:00 | NUR ---
PT ABLE TO DRINK 1.5 BOTTLES OF ENSURE, WELL SEVERAL BITES OF MASHED POTATOES AND ICE CREAM. PT REPORTS BEING TIRED AND NOT BEING ABLE TO EAT ANY MORE.
--- NOTE | 2020-02-01 15:10 | NUR ---
AT ABOUT THIS TIME FROM [employer] CAME TO TALK WITH KEO VIA KELLY THROUGH THE GLASS DOORS OF HER CLOSED ROOM. PT SEEMED PLEASED TO SEE DAGO, HOWEVER FOR A FEW MINUTES THOUGHT THAT SHE WAS HER FRIEND CHEO ALLEN. DAGO ASKED THE PT IF IT WAS "OK" FOR [facility] TO TELL HER ABOUT KEO'S MEDICAL CONDITION, AND IF SHE WAS WILLING TO SIGN A RELEASE OF INFORMATION FORM. IT TOOK A FEW MINUTES FOR KEO TO UNDERSTAND WHAT DAGO WAS ASKING FOR. DAGO REPEATED HER QUESTION 4 OR 5 TIMES. ONE ANSWER KEO GAVE WAS "I'M TOO TIRED" AND THEN "I DON'T KNOW WHAT SHE IS SAYING". ONCE KEO UNDERSTOOD, SHE STATED SHE WAS WILLING TO SIGN THE RELEASE FORM. THIS RN ASSISTED KEO TO SIGN THE FORM BY HOLDING THE PAPER IN PLACE FOR HER. PT PLACED ON CPAP FOR O2 SATS OF 84% ON 15L NON-REBREATHER, SHE CLOSED HER EYES AND APPEARED TO BE RESTING.
--- NOTE | 2020-02-01 16:00 | NUR ---
AT ABOUT 1600 PT REQUESTS TO GET BACK TO BED. ONE PERSON ASSIST TO BED FROM CHAIR WITH CPAP IN PLACE. PT FATIGUED EASILY WITH ACTIVITY, HOWEVER IS STEADY ON HER FEET, WELL ABLE TO HELP TRANSFER.
--- NOTE | 2020-02-01 16:30 | NUR ---
PT REPORTS NEED TO HAVE A BM. BEDPAN PLACED FOR PT HER WILFRED FOR ACTIVITY IS LOW. PT ABLE TO HAVE LARGE FORMED BM. TWO PERSON ASSIST NEEDED TO CLEAN PT SHE IS FEARFUL OF ROLLING FROM SIDE TO SIDE IN BED, AND REFUSES TO DO SO. YARI CARES DONE, PT BOOSTED UP IN BED, CPAP IN PLACE.
--- NOTE | 2020-02-01 17:05 | NUR ---
[facility] [facility] IS HERE, GETTING GOWNED UP TO COME INTO THE PT ROOM. PT IS AWARE THAT SHE WILL BE FLYING TO [place] WITH [facility] AND IS AGREEABLE. PT IS CURRENTLY ON CPAP. BEDSIDE REPORT GIVEN TO CREW ONCE THEY ENTER THE ROOM. ASSISTED TO TRANSFER PT FROM BED TO [facility] AND GET ALL EQUIPMENT SWITCHED OVER.
--- NOTE | 2020-02-01 17:55 | NUR ---
[facility] LEFT THE BUILDING WITH PT.
--- NOTE | 2020-02-01 18:35 | NUR ---
FULL REPORT GIVEN TO RASHAD AT [facility] IN [place]. ALL QUESTIONS ANSWERED. PT HOME MEDS, CLOTHES, AND GLASSES SENT WITH PT VIA [employer].
--- NOTE | 2020-02-01 21:55 | EKG ---
[facility] [address] [facility] [place] [address] Signed Sinus rhythm with occasional premature ventricular complexes Possible Left atrial enlargement Nonspecific T wave abnormality Abnormal ECG When compared with ECG of 02-AUG-2016 14:13, Previous ECG has undetermined rhythm, needs review Confirmed by ASA SALAS DO ([id number]) on 02/01/2020 9:55:00 PM Electronically Signed By: ASA SALAS DO 02/01/20 2155 PATIENT NAME: KEO BARRAZA VIK Electrocardiogram DATE OF : 61 PHYSICIAN: ASA SALAS DO REPORT #: [id number] REPORT IS CONFIDENTIAL AND NOT TO BE RELEASED WITHOUT AUTHORIZATION
--- NOTE | 2020-02-01 21:56 | EKG ---
[facility] [address] [facility] [place], [place] [address] Signed Normal sinus rhythm Normal ECG When compared with ECG of 01-FEB-2020 04:16, (Unconfirmed) premature ventricular complexes are no longer present Nonspecific T wave abnormality, improved in Anterior leads Confirmed by ASA SALAS DO ([id number]) on 02/01/2020 9:56:42 PM Electronically Signed By: ASA SALAS DO 02/01/20 2156 PATIENT NAME: KEO BARRAZA Electrocardiogram DATE OF : 61 PHYSICIAN: ASA SALAS DO REPORT #: [id number] REPORT IS CONFIDENTIAL AND NOT TO BE RELEASED WITHOUT AUTHORIZATION
== END 2020-02-01 17:50 | disposition short-term general hospital (02) | DRG 193 ==
LOC: ED 08:49 → CCU 11:39
PROVIDERS: ADMIT Internal Medicine
PROC: 05HY33Z Insertion of Infusion Device into Upper Vein, Percutaneous Approach (ICD-10-PCS; 2020-01-28)
PROC: 8E0ZXY6 Isolation (ICD-10-PCS; principal; 2020-01-28 14:30)
PROC: 5A09357 Assistance with Respiratory Ventilation, Less than 24 Consecutive Hours, Continuous Positive Airway Pressure (ICD-10-PCS; 2020-01-30)
DX: J12.9 Viral pneumonia, unspecified (principal); J80 Acute respiratory distress syndrome; E87.1 Hypo-osmolality and hyponatremia; J44.0 Chronic obstructive pulmonary disease with (acute) lower respiratory infection; I27.0 Primary pulmonary hypertension; D69.6 Thrombocytopenia, unspecified; R39.15 Urgency of urination; K21.9 Gastro-esophageal reflux disease without esophagitis; E78.5 Hyperlipidemia, unspecified; E03.9 Hypothyroidism, unspecified; F31.9 Bipolar disorder, unspecified; G89.4 Chronic pain syndrome; Z66 Do not resuscitate; Z79.1 Long term (current) use of non-steroidal anti-inflammatories (NSAID); Z79.82 Long term (current) use of aspirin; Z79.899 Other long term (current) drug therapy; Z88.1 Allergy status to other antibiotic agents; Z88.2 Allergy status to sulfonamides; Z88.0 Allergy status to penicillin
CPT/HCPCS: 36415; 36569; 36600; 71045; 80048; 80053; 80164; 81001; 82728; 82800; 82803; 83605; 83615; 83735; 83880; 84100; 84484; 85025; 85651; 86140; 87040; 87070; 87077; 87186; 87205; 87502; 93005; 93010; 94640; 94660; 94664; 94799; 96374; 96375; 99285-25; J0692; J0696; J1650; J1940; J1956; J2370; J2405; J3475; J7030; J7050; J7060; J7121

== ENCOUNTER 2020-02-24 16:36 | Emergency (ER) | payer OTHER ==
[~2020-02-24] VITALS: Ht 157.5 cm; Wt 93.1 kg
--- OUTSIDE RECORDS SUMMARY | ~2020-02-24 | XMS | Encounter Summary ---
Demographics + + + | Address | [address] | | | [place] [address] | + + + | Home Phone | | + + + | Preferred Language | Unknown | + + + | Marital Status | Single | + + + | Church Affiliation | 1009 | + + + | Race | Unknown | + + + | Ethnic Group | Unknown | + + + Author + + + | Author | [facility] | | | and [place] | + + + | Organization | [facility] | | | and [place] | + + + | Address | Unknown | + + + | Phone | Unavailable | + + + Support + + + + + | Name | Relationship | Address | Phone | + + + + + | [employer] | ECON | [id number] | | | | | Unknown | | + + + + + Care Team Providers + +------+ + | Care Mill Stenciler Name | Role | Phone | + +------+ + | Yuni Shrestha | PCP | | + +------+ + Encounter Details +--------+ + + + + | Date | Type | Department | Care Team | Description | +--------+ + + + + | 01/04/ | Orders Only | [facility] [place] | [facility], | Dysphagia | | 2016 | | GASTROENTEROLOGY | BRITTANY Maddox [address] | | | | | [address] [place] | [place], [place] [address] | | | | | [address] [place], [place] | [place], [place] | | | | | [address] | [address] | | | | | [phone] | | | +--------+ + + + + Social History + + + +--------+ + | Tobacco Use | Types | Packs/Day | Years | Date | | | | | Used | | + + + +--------+ + | Former Smoker | Cigarettes | 1 | 20 | Quit: 12/15/2015 | + + + +--------+ + + +---+---+---+ | Smokeless Tobacco: | | | | | Never Used | | | | + +---+---+---+ + + | Comments: Smoking a cigarette every 2 hours | + + + + +---------+ + | Alcohol Use | Drinks/Week | oz/Week | Comments | + + +---------+ + | No | 0 Standard drinks | 0.0 | | | | or equivalent | | | + + +---------+ + + + + | Sex Assigned at | Date Recorded | | | | + + + | Not on file | | + + + + + + + | Job Start Date | Occupation | Industry | + + + + | Not on file | Not on file | Not on file | + + + + + + + + | Travel History | Travel Start | Travel End | + + + + + + | No recent travel history available. | + + documented as of this encounter Plan of Treatment +--------+---------+ + + + | Date | Type | Specialty | Care Team | Description | +--------+---------+ + + + | 04/16/ | Office | Pulmonology | Helen Astudillo | | | 2020 | Visit | | MD Vikash [address] | | | | | | [address] | | | | | | [place] [address] | | | | | | [phone] | | | | | | | | +--------+---------+ + + + | 04/30/ | Office | Sleep Medicine | Jacky Calderon PA | | | 2019 | Visit | | [address] [place] [address] | | | | | | [place] | | | | | | [address] | | | | | | | | +--------+---------+ + + + documented as of this encounter Visit Diagnoses + + | Diagnosis | + + | Dysphagia Dysphagia, unspecified | + + documented in this encounter"
--- OUTSIDE RECORDS SUMMARY | ~2020-02-24 | XMS | Encounter Summary ---
Demographics + + + | Address | [address] | | | [place] [address] | + + + | Home Phone | | + + + | Preferred Language | Unknown | + + + | Marital Status | Single | + + + | Sikh Affiliation | 1009 | + + + | Race | Unknown | + + + | Ethnic Group | Unknown | + + + Author + + + | Author | [facility] | | | and [place] | + + + | Organization | [facility] | | | and [place] | + + + | Address | Unknown | + + + | Phone | Unavailable | + + + Support + + + + + | Name | Relationship | Address | Phone | + + + + + | [employer] | ECON | [id number] | | | | | Unknown | | + + + + + Care Team Providers + +------+ + | Care Fire Sprinkler Installer Name | Role | Phone | + +------+ + | Yuni Shrestha | PCP | | + +------+ + Encounter Details +--------+ + + + + | Date | Type | Department | Care Team | Description | +--------+ + + + + | 02/23/ | Orders Only | [facility] [place] | [facility], | Pulmonary | | 2018 | | PULMONARY [address] | hypertension (HCC) | | | | [place] [place] | [place] [address] | (Primary Dx) | | | | [place] [address] | [phone] | | | | | [phone] | | | +--------+ + + + [...] | | | + +---+---+---+ + + +---------+ + | Alcohol Use [...] Helen Astudillo | | | 2019 | Visit | | MD Vikash [address] | | | | | [address] | | | | | | [place] [address] | | | | | | [phone] | | | | | | | | +--------+---------+ + + + | 07/01/ | Office | Sleep Medicine | Jacky Calderon PA | | | 2020 | Visit | | [address] | | | | | | [place] | | | | | | [address] | | | | | | | | +--------+---------+ + + + + + +--------+ + + | Name | Type | Priori | Associated Diagnoses | Order Schedule | | | | ty | | | + + +--------+ + + | Oxygen Therapy | Respiratory | Routin | Pulmonary | 1 Occurrences | | | Care | e | hypertension (HCC) | starting 02/23/2018 | | | | | | until 02/23/2019 | + + +--------+ + + documented as of this encounter Visit Diagnoses + + | Diagnosis | + + | Pulmonary hypertension (HCC) - Primary Other chronic pulmonary heart diseases | + + documented in this encounter"
--- OUTSIDE RECORDS SUMMARY | ~2020-02-24 | XMS | Encounter Summary ---
Demographics + + + | Address | [address] | | | [place] [address] | + + + | Home Phone | | + + + | Preferred Language | Unknown | + + + | Marital Status | Single | + + + | Scientology Affiliation | 1009 | + + + | Race | Unknown | + + + | Ethnic Group | Unknown | + + + Author + + + | Author | [facility] | | | and [place] | + + + | Organization | [facility] | | | and [place] | + + + | Address | Unknown | + + + | Phone | Unavailable | + + + Support + + + + + | Name | Relationship | Address | Phone | + + + + + | Projects Horizon | ECON | [id number] | | | | | Unknown | | + + + + + Care Team Providers + +------+ + | Care Hand Suture Winder Name | Role | Phone | + +------+ + | Yuni Shrestha | PCP | | + +------+ + Reason for Visit +---------+ + | Reason | Comments | +---------+ + | Results | | +---------+ + Encounter Details +--------+ + + + + | Date | Type | Department | Care Team | Description | +--------+ + + + + | 07/30/ | Telephone | [facility] | [facility], | Results | | 2014 | | PULMONARY [address] | Vera Farrar MD | | | | | [place], | | | | | | [place] [address] | | | | | | [phone] | | | +--------+ + + + + Social History + + + +--------+------+ | Tobacco Use | Types | Packs/Day | Years | Date | | | | | Used | | + + + +--------+------+ | Current Every Day | Cigarettes | 1 | 20 | | | Smoker | | | | | + + + +--------+------+ + + | Comments: restarted in August 2014, quit again 12/10/14, resumed a few cigarettes again | + + + + +---------+ + | Alcohol Use | Drinks/Week | oz/Week | Comments | + + +---------+ + | Yes | 0 Standard drinks | 0.0 | history of abuse | | | or equivalent | | [...] | | | | | [place] [address] | | | | | | [phone] | | | | | | | | +--------+---------+ + + + | 04/30/ | Office | Sleep Medicine | Jacky Calderon PA | | | 2020 | Visit | | [address] | | | | | | [place] | | | | | | [address] | | | | | | | | +--------+---------+ + + + documented as of this encounter Visit Diagnoses Not on filedocumented in this encounter"
--- OUTSIDE RECORDS SUMMARY | ~2020-02-24 | XMS | Encounter Summary ---
Demographics + + + | Address | [address] | | | [place] [address] | + + + | Home Phone | | + + + | Preferred Language | Unknown | + + + | Marital Status | Single | + + + | Cheondoism Affiliation | 1009 | + + + | Race | Unknown | + + + | Ethnic Group | Unknown | + + + Author + + + | Author | [facility] | | | and [place] | + + + | Organization | [facility] | | | and [place] | + + + | Address | Unknown | + + + | Phone | Unavailable | + + + Support + + + + + | Name | Relationship | Address | Phone | + + + + + | Projects [place] | ECON | [id number] | | | | | Unknown | | + + + + + Care Team Providers + +------+ + | Care Pulmonary Physical Therapist Name | Role | Phone | + +------+ + | Gela Trimble PROGRAM MANAGER TRANSPORTATION | PCP | | + +------+ + Reason for Referral Diagnostic/Screening (Routine) +--------+--------+ + + + + | Status | Reason | Specialty | Diagnoses / | Referred By | Referred To | | | | | Procedures | Contact | Contact | +--------+--------+ + + + + | Closed | | Radiology | Diagnoses | | [facility] | | | | | Primary | [place]enstein, | [address] | | | | | pulmonary | Vera B, | [place], | | | | | hypertension | MD [address] | [place] | | | | | (HCC) | [address] | [address] | | | | | Procedures | [place], | Phone: | | | | | ECHO | [place] [address] | [phone] | | | | | Complete | | Fax: | | | | | APPT | | [phone] | | | | | 03/18/14. | | | | | | | DEFERRED T0 | | | | | | | 03/01/14 | | | +--------+--------+ + + + + Reason for Visit Diagnostic/Screening (Routine) +--------+--------+ + + + + | Status | Reason | Specialty | Diagnoses / | Referred By | Referred To | | | | | Procedures | Contact | Contact | +--------+--------+ + + + + | Closed | | Radiology | Diagnoses | | [facility] | | | | | Primary | Offenstein, | [address] | | | | | pulmonary | Vera B, | [place], | | | | | hypertension | MD [address] | [place] | | | | | ([facility]) | [address] | [address] | | | | | Procedures | [place], | Phone: | | | | | ECHO | [place] [address] | [phone] | | | | | Complete | | Fax: | | | | | APPT | | [phone] | | | | | 03/18/14. | | | | | | | DEFERRED T0 | | | | | | | 03/01/14 | | | +--------+--------+ + + + + Encounter Details +--------+ + + + + | Date | Type | Department | Care Team | Description | +--------+ + + + + | 03/12/ | Hospital | [facility] | Offenstein, | Primary pulmonary | | 2013 | Encounter | [facility] [address] | Vera Farrar MD | hypertension | | | | [address] | [place], | | | | | [place] [address] | Technologist | | | | | [phone] | | | +--------+ + + + [...] + + documented as of this encounter Medications at Time of Discharge + + + +---------+ + + | Medication | Sig | Dispensed | Refills | Start | End Date | | | | | | Date | | + + + +---------+ + + | acetaminophen | Take 650 mg by mouth | | 0 | | | | (MAPAP) 325 mg | every 4 hours as | | | | | | tablet | needed. | | | | | + + + +---------+ + + | albuterol | Inhale 2 puffs into | | 0 | | | | (VENTOLIN HFA) 90 | the lungs every 4 | | | | | | mcg/puff inhaler | hours as needed for | | | | | | | Wheezing or | | | | | | | Shortness of Breath. | | | | | + + + +---------+ + + | ascorbic acid | Take 500 mg by mouth | | 0 | | | | (VITAMIN C) 500 mg | 2 times daily. | | | | | | tablet | | | | | | + + + +---------+ + + | cetirizine | Take 10 mg by mouth | | 0 | | | | (ZYRTEC) 10 mg | Daily. | | | | | | tablet | | | | | | + + + +---------+ + + | cholecalciferol | Take 2,000 Units by | | 0 | | | | (VITAMIN D-3) 2000 | mouth Daily. | | | | | | UNITS TABS | | | | | | + + + +---------+ + + | divalproex | Take 500 mg by mouth | | 0 | | | | (DEPAKOTE) 500 mg EC | 2 times daily. | | | | | | tablet | | | | | | + + + +---------+ + + | Elastic Bandages & | by Does not apply | | 0 | | | | Supports (MEDICAL | route. | | | | | | COMPRESSION | | | | | | | STOCKINGS) MISC | | | | | | + + + +---------+ + + | furosemide (LASIX) | Take 80 mg by mouth | | 0 | | | | 80 mg tablet | Daily. | | | | | + + + +---------+ + + | gabapentin | Take 600 mg by mouth | | 0 | | | | (NEURONTIN) 300 mg | 3 times daily. | | | | | | capsule | | | | | | + + + +---------+ + + | Magnesium | Take 30 mLs by mouth | | 0 | | | | Hydroxide (MILK OF | as needed. | | | | | | MAGNESIA PO) | | | | | | + + + +---------+ + + | meloxicam (MOBIC) | Take 15 mg by mouth | | 0 | | | | 15 mg tablet | Daily. | | | | | + + + +---------+ + + | potassium chloride | Take 40 mEq by mouth | | 0 | | | | (K-DUR) 20 mEq | Daily. | | | | | | tablet | | | | | | + + + +---------+ + + | simvastatin | Take 20 mg by mouth | | 0 | | | | (ZOCOR) 20 mg tablet | nightly. | | | | | + + + +---------+ + + | UNCODED MEDICATION | Change pressure on | 1 | 0 | 12/26/19 | | | | BiPAP to 16/5 cm | Device | | 14 | | | | with backup of 8 and | | | | | | | 5 L/min O2 bled | | | | | | | into system. | | | | | + + + +---------+ + + | ambrisentan | Take 10 mg by mouth | | 0 | | | | (LETAIRIS) 5 MG | Daily. | | | | 4 | | tablet | | | | | | + + + +---------+ + + | beclomethasone | Inhale 1 puff into | 1 | 11 | 08/27/20 | | | (QVAR) 80 mcg/puff | the lungs 2 times | Inhaler | | 13 | 5 | | inhalerIndications: | daily. | | | | | | COPD (chronic | | | | | | | obstructive | | | | | | | pulmonary disease) | | | | | | | (HCC) | | | | | | + + + +---------+ + + | buPROPion | Take 100 mg by mouth | | 0 | | | | (WELLBUTRIN) 100 mg | 2 times daily. | | | | 6 | | tablet | | | | | | + + + +---------+ + + | Frisco Starch POWD | by Does not apply | | 0 | | | | | route 2 times daily. | | | | 9 | + + + +---------+ + + | divalproex | Take 250 mg by mouth | | 0 | | | | (DEPAKOTE) 250 mg EC | Daily. | | | | 6 | | tablet | | | | | | + + + +---------+ + + | docusate sodium | Take 50 mg by mouth | | 0 | | | | (COLACE) 50 MG | Daily. | | | | 8 | | capsule | | | | | | + + + +---------+ + + | levothyroxine | Take 175 mcg by | | 0 | | | | (SYNTHROID, | mouth every morning | | | | 6 | | LEVOTHROID) 137 MCG | (before breakfast). | | | | | | tablet | | | | | | + + + +---------+ + + | Lufkin-3 Fatty | Take by mouth. | | 0 | | | | Acids (SEA-OMEGA 30) | | | | | 7 | | 1200 MG CAPS | | | | | | + + + +---------+ + + | omeprazole | Take 20 mg by mouth | | 0 | | | | (PRILOSEC) 20 mg | every morning | | | | 6 | | capsule | (before breakfast). | | | | | + + + +---------+ + + | ondansetron | Take 4 mg by mouth | | 0 | | | | (ZOFRAN ODT) 4 mg | every 8 hours as | | | | 7 | | disintegrating | needed. | | | | | | tablet | | | | | | + + + +---------+ + + | oxygen | Inhale 4 L into the | | 0 | | | | | lungs continuous. | | | | 5 | | | None at rest, 4L | | | | | | | with exertion, 5L | | | | | | | when asleep. | | | | | + + + +---------+ + + | PARoxetine (PAXIL) | Take 20 mg by mouth | | 0 | | | | 20 mg tablet | nightly. | | | | 8 | + + + +---------+ + + | Respiratory | BIPAP ST rate 8 cm | 1 each | 0 | 08/13/20 | | | Therapy Supplies | H2O. IPAP 19/EPAP 5. | | | 13 | 4 | | MISCIndications: | O2 bleed in at 2 | | | | | | Obstructive sleep | l/m. Lifetime. Dx: | | | | | | apnea (adult) | 327.23 | | | | | | (pediatric) | | | | | | + + + +---------+ + + | Respiratory | Please contact | 1 each | 0 | 08/06/20 | | | Therapy Supplies | [facility]'s office | | | 13 | 8 | | MISC | if oxygen level | | | | | | | drops below 88% more | | | | | | | than 3 times during | | | | | | | a 24 hours time | | | | | | | period. | | | | | + + + +---------+ + + | risperiDONE | Take 4 mg by mouth | | 0 | | | | (RISPERDAL) 4 MG | Daily. | | | | 4 | | tablet | | | | | | + + + +---------+ + + | trolamine | Apply topically as | | 0 | | | | salicylate | needed. | | | | 6 | | (ASPERCREME) 10% | | | | | | | cream | | | | | | + + + +---------+ + + | vitamin B-12 | Take 1,000 mcg by | | 0 | | | | (CYANOCOBALAMIN) | mouth Daily. | | | | 9 | | 1000 MCG tablet | | | | | | + + + +---------+ + + documented as of this encounter Progress Notes Vera Lainez MD - 03/14/2014 12:41 PM PDT Quick Note: Please let the patient know their echo is stable. Her lung pressures look about the same, no better or worse. I sent a copy to Dr. Rivera's office, but maybe we could also fax one? documented in this encounter Plan of Treatment +--------+---------+ + + + | Date | Type | Specialty | Care Team | Description | +--------+---------+ + + + | 04/16/ | Office | Pulmonology | Helen Astudillo | | | 2019 | Visit | | MD Vikash [address] | | | | | | [address] | | | | | | [place] [address] | | | | | | [phone] | | | | | | | | +--------+---------+ + + + | 04/30/ | Office | Sleep Medicine | Jacky Calderon PA | | | 2020 | Visit | | [address] | | | | | | [place] | | | | | | [address] | | | | | | | | +--------+---------+ + + + documented as of this encounter Procedures + +--------+ + + + | Procedure Name | Priori | Date/Time | Associated Diagnosis | Comments | | | ty | | | | + +--------+ + + + | ECHO COMPLETE | Routin | 03/12/2014 | Primary pulmonary | Results for this | | | e | 8:36 AM | hypertension | procedure are in the | | | | PDT | | results section. | + +--------+ + + + documented in this encounter Results ECHO Complete (03/12/2014 8:36 AM PDT) + + | Specimen | + + | | + + + + + | Narrative | Performed At | + + + | [facility] ECH[facility]PORT | SUMPTER | | STUDY DATE: 03/12/2014 PATIENT NAME: Margarita Rowley : | [facility] ([facility] | | 1965 PCP: Gela Trimble [facility] | | HISTORY/DIAGNOSIS: PULM HTN A transthoracic echocardiogram | - IMAGING | | with M-mode, pulsed-wave and color Doppler was performed with | | | standard views obtained. The technical quality of this examination | | | is good. The heart rhythm during the echo is sinus with heart | | | rate in the 70s. The M-mode, two-dimensional, color flow and | | | spectral Doppler data were reviewed and support the following | | | interpretation: Interpretation: Left Atrium: borderline enlarged | | | Left ventricle: Left ventricular size is normal with normal wall | | | thickness and motion, and normal left ventricular systolic function. | | | The estimated ejection fraction is 76%. Grade 1 left | | | ventricular diastolic dysfunction. Aortic root: Aortic root is | | | normal. Right Atrium: mild to moderately enlarged Right ventricle: | | | mild to moderately enlarged with preserved RV systolic function. | | | Pericardium: Pericardium is normal. Pulmonary artery: Pulmonary | | | artery is normal. Aortic valve: Aortic valve is trileaflet and | | | opens normally. Mitral valve: mildly thickened with mild | | | regurgitation. Pulmonic valve: Pulmonic valve is normal. Tricuspid | | | valve: normal with mild insufficiency and peak velocity of 4.1 m/s | | | consistent with RV SP of 79-84 mmHg. Vena cava: enlarged with reduced | | | respiratory collapse IMPRESSIONS: 1. Normal LV size and | | | systolic function with LVEF 76%. 2. Biatrial enlargement. 3. Severe | | | pulmonary systolic hypertension. 4. Mild mitral and tricuspid | | | insufficiency. Measurements: Height: 60 Weight: 217 | | | Aortic root: 27 mm Aortic cusp sep: 16 mm LA: 38 mm | | | IVS-diastole: 10 mm IVS-systole: 17 mm LVPW diastole: 10 mm | | | LVPW systole: 15 mm LV diameter-diastole: 42 mm LV | | | diameter-systole: 19 mm Fractional shortenin % PFV aortic | | | valve: m/s MPG mitral valve: mmHg PFV TR jet: 4.15 m/s | | | RA/RV PP mmHg LA volume: 34 mL LA index: 18 mL/m2 Mitral | | | Inflow DT: 290 ms IVRT: 117 ms Valsalva: YES, TO NO EFFECT | | | PWDTI S wave: 12.0 cm/s PWDTI E wave: 15.5 cm/s PWDTI A wave: | | | 24.1 cm/s E/A Ratio: 0.643 E/E Ratio: Signed by: | | | S. Ananth Salguero MD PhD FACC 03/12/2014 8:38 | | | Vacuum Pan Operator: Hung Caro, TIRSO, RVT, RDMS | | + + + + + | Procedure Note | + + | Roberto Salguero MD - 03/12/2014 6:05 PM [facility] | | CENTERECHOCARDIOGRAM REPORTSTUDY DATE: 03/12/2014PATIENT NAME: Margarita MooreB: | | 1965MRN: [id number]: Gela DayINICAL HISTORY/DIAGNOSIS: PULM HTNA | | transthoracic echocardiogram with M-mode, pulsed-wave and color Doppler was performed | | with standard views obtained. The technical quality of this examination is good. The | | heart rhythm during the echo is sinus with heart rate in the 70s. The M-mode, | | two-dimensional, color flow and spectral Doppler data were reviewed and support the | | following interpretation:Interpretation:Left Atrium: borderline enlargedLeft ventricle: | | Left ventricular size is normal with normal wall thickness and motion, and normal left | | ventricular systolic function. The estimated ejection fraction is 76%. Grade 1 left | | ventricular diastolic dysfunction.Aortic root: Aortic root is normal.Right Atrium: mild | | to moderately enlargedRight ventricle: mild to moderately enlarged with preserved RV | | systolic function.Pericardium: Pericardium is normal.Pulmonary artery: Pulmonary | | artery is normal.Aortic valve: Aortic valve is trileaflet and opens normally.Mitral | | valve: mildly thickened with mild regurgitation.Pulmonic valve: Pulmonic valve is | | normal.Tricuspid valve: normal with mild insufficiency and peak velocity of 4.1 m/s | | consistent with RV SP of 79-84 mmHg.Vena cava: enlarged with reduced respiratory | | collapseIMPRESSIONS:1. Normal LV size and systolic function with LVEF 76%.2. Biatrial | | enlargement.3. Severe pulmonary systolic hypertension.4. Mild mitral and tricuspid | | insufficiency.Measurements:Height: 60Weight: 217Aortic root: 27 mmAortic cusp sep: 16 | | mmLA: 38 mmIVS-diastole: 10 mmIVS-systole: 17 mmLVPW diastole: 10 mmLVPW systole: | | 15 mmLV diameter-diastole: 42 mmLV diameter-systole: 19 mmFractional shortenin | | %PFV aortic valve: m/sMPG mitral valve: mmHgPFV TR jet: 4.15 m/Eloy/RV PP | | mmHgLA volume: 34 mLLA index: 18 mL/j9Xokvuc Inflow DT: 290 msIVRT: 117 msValsalva: | | YES, TO NO EFFECTPWDTI S wave: 12.0 cm/sPWDTI E wave: 15.5 cm/sPWDTI A wave: 24.1 | | cm/sE/A Ratio: 0.643E/E Ratio: Signed by: Artie Salguero MD PhD FACC 03/12/2014 | | 8:38 Vacuum Pan Operator: Hung Caro, RDCS, RVT, RDMS | |Mitral valve: mildly thickened with mild regurgitation. | |Pulmonic valve: Pulmonic valve is normal. | |Tricuspid valve: normal with mild insufficiency and peak velocity of 4.1 m/s consistent wit h RV SP of 79-84 mmHg. | |Vena cava: enlarged with reduced respiratory collapse | | | | | |IMPRESSIONS: | |1. Normal LV size and systolic function with LVEF 76%. | |2. Biatrial enlargement. | |3. Severe pulmonary systolic hypertension. | |4. Mild mitral and tricuspid insufficiency. | | | | | | | | | |Measurements: | |Height: 60 | |Weight: 217 | |Aortic root: 27 mm | |Aortic cusp sep: 16 mm | |LA: 38 mm | |IVS-diastole: 10 mm | |IVS-systole: 17 mm | |LVPW diastole: 10 mm | |LVPW systole: 15 mm | |LV diameter-diastole: 42 mm | |LV diameter-systole: 19 mm | |Fractional shortenin % | |PFV aortic valve: m/s | |MPG mitral valve: mmHg | |PFV TR jet: 4.15 m/s | |RA/RV PP mmHg | |LA volume: 34 mL | |LA index: 18 mL/m2 | |Mitral Inflow DT: 290 ms | |IVRT: 117 ms | |Valsalva: YES, TO NO EFFECT | |PWDTI S wave: 12.0 cm/s | |PWDTI E wave: 15.5 cm/s | |PWDTI A wave: 24.1 cm/s | |E/A Ratio: 0.643 | |E/E Ratio: | | | | | | | | | |Signed by: Artie Salguero MD PhD FACC | | 03/12/2014 8:38 | | | | | |Vacuum Pan Operator: Hung Caro, RDCS, RVT, RDMS | + + + + + + + | Performing | Address | City/State/Zipcode | Phone Number | | Organization | | | | + + + + + | [facility] | [address] | [place] | [phone] | | [facility] | | [address] | | | - IMAGING | | | | + + + + + documented in this encounter Visit Diagnoses + + | Diagnosis | + + | Primary pulmonary hypertension | + + documented in this encounter"
--- OUTSIDE RECORDS SUMMARY | ~2020-02-24 | XMS | Clinical Summary ---
Demographics + + + | Address | [address] | | | [place] [address] | + + + | Home Phone | | + + + | Preferred Language | Unknown | + + + | Marital Status | Single | + + + | Cheondoism Affiliation | [id number] | + + + | Race | Unknown | + + + | Ethnic Group | Unknown | + + + Author + + + | Author | [facility] | | | and [place] | + + + | Organization | [facility] | | | and [place] | + + + | Address | Unknown | + + + | Phone | Unavailable | + + + Support + + + + + | Name | Relationship | Address | Phone | + + + + + | [employer] [facility] | ECON | [id number] | | | | | Unknown | | + + + + + Care Team Providers + +------+ + | Care Refinery Operator Coking Name | Role | Phone | + +------+ + | Shanice Huang MD | PCP | | + +------+ + Allergies + + + + + + | Active Allergy | Reactions | Severity | Noted | Comments | | | | | Date | | + + + + + + | Erythromycin | Other (See Comments) | Low | 06/15/20 | | | | | | 13 | | + + + + + + | Food | Hives, Other (See | High | 06/30/20 | PEAS cause seizure | | | Comments) | | 16 | and hives | + + + + + + | Metronidazole | Other (See Comments) | Low | 06/15/20 | | | | | | 13 | | + + + + + + | Penicillins | Hives | High | 06/15/20 | | | | | | 13 | | + + + + + + | Sulfa Antibiotics | Other (See Comments) | Low | 06/15/20 | | | | | | 13 | | + + + + + + | Uncoded | Other (See Comments) | High | 06/26/20 | Needs to be able | | Nonscreenable | | | 18 | to generate a heart | | Allergen | | | | rate with her | | | | | | pulmonary | | | | | | hypertension | + + + + + + Medications + + + +---------+------+------+-------+ | Medication | Sig | Dispensed | Refills | Star | End | Statu | | | | | | t | Date | s | | | | | | Date | | | + + + +---------+------+------+-------+ | gabapentin | Take 600 mg by mouth | | 0 | | | Activ | | (NEURONTIN) 300 mg | 3 times daily. | | | | | e | | capsule | | | | | | | + + + +---------+------+------+-------+ | simvastatin | Take 20 mg by mouth | | 0 | | | Activ | | (ZOCOR) 20 mg tablet | nightly. | | | | | e | + + + +---------+------+------+-------+ | meloxicam (MOBIC) | Take 15 mg by mouth | | 0 | | | Activ | | 15 mg tablet | Daily. | | | | | e | + + + +---------+------+------+-------+ | cetirizine | Take 10 mg by mouth | | 0 | | | Activ | | (ZYRTEC) 10 mg | Daily. | | | | | e | | tablet | | | | | | | + + + +---------+------+------+-------+ | divalproex | Take 500 mg by mouth | | 0 | | | Activ | | (DEPAKOTE) 500 mg EC | 2 times daily. | | | | | e | | tablet | | | | | | | + + + +---------+------+------+-------+ | albuterol | Inhale 2 puffs into | | 0 | | | Activ | | (VENTOLIN HFA) 90 | the lungs every 4 | | | | | e | | mcg/puff inhaler | hours as needed for | | | | | | | | Wheezing or | | | | | | | | Shortness of Breath. | | | | | | + + + +---------+------+------+-------+ | ascorbic acid | Take 500 mg by mouth | | 0 | | | Activ | | (VITAMIN C) 500 mg | 2 times daily. | | | | | e | | tablet | | | | | | | + + + +---------+------+------+-------+ | cholecalciferol | Take 2,000 Units by | | 0 | | | Activ | | (VITAMIN D-3) 2000 | mouth Daily. | | | | | e | | UNITS TABS | | | | | | | + + + +---------+------+------+-------+ | furosemide (LASIX) | Take 80 mg by mouth | | 0 | | | Activ | | 80 mg tablet | Daily. | | | | | e | + + + +---------+------+------+-------+ | acetaminophen | Take 650 mg by mouth | | 0 | | | Activ | | (MAPAP) 325 mg | every 4 hours as | | | | | e | | tablet | needed. | | | | | | + + + +---------+------+------+-------+ | potassium chloride | Take 40 mEq by mouth | | 0 | | | Activ | | (K-DUR) 20 mEq | Daily. | | | | | e | | tablet | | | | | | | + + + +---------+------+------+-------+ | Elastic Bandages & | by Does not apply | | 0 | | | Activ | | Supports (MEDICAL | route. | | | | | e | | COMPRESSION | | | | | | | | STOCKINGS) MISC | | | | | | | + + + +---------+------+------+-------+ | Magnesium | Take 30 mLs by mouth | | 0 | | | Activ | | Hydroxide (MILK OF | as needed. | | | | | e | | MAGNESIA PO) | | | | | | | + + + +---------+------+------+-------+ | UNCODED MEDICATION | Change pressure on | 1 | 0 | 02/2 | | Activ | | | BiPAP to 16/5 cm | Device | | 6/20 | | e | | | with backup of 8 and | | | 14 | | | | | 5 L/min O2 bled | | | | | | | | into system. | | | | | | + + + +---------+------+------+-------+ | risperiDONE | 0.5 mg. Take one | | 5 | 01/2 | | Activ | | (RISPERDAL) 1 mg | tablet in the | | | 8/20 | | e | | tablet | morning and two | | | 15 | | | | | tablets in the | | | | | | | | evening | | | | | | + + + +---------+------+------+-------+ | sodium chloride | use as directed per | 1 | 0 | 02/1 | | Activ | | (OCEAN) 0.65% nasal | package instructions | Bottle | | 1/20 | | e | | spray | as needed for | | | 15 | | | | | congestion or | | | | | | | | dryness during the | | | | | | | | day. | | | | | | + + + +---------+------+------+-------+ | oxygen | Inhale 4 L into the | | 0 | 08/1 | | Activ | | | lungs continuous. 1L | | | 3/20 | | e | | | at rest, 4L with | | | 15 | | | | | exertion, 5L when | | | | | | | | asleep. | | | | | | + + + +---------+------+------+-------+ | tadalafil | Take 2 tablets by | 60 | 5 | 03/2 | | Activ | | (ADCIRCA) 20 mg | mouth Daily. | tablet | | 1/20 | | e | | tablet | | | | 16 | | | + + + +---------+------+------+-------+ | buPROPion | Take 200 mg by mouth | | 0 | | | Activ | | (WELLBUTRIN SR) 200 | Daily. | | | | | e | | MG 12 hr tablet | | | | | | | + + + +---------+------+------+-------+ | aspirin | Take 81 mg by mouth | | 0 | 02/2 | | Activ | | (ASPIR-LOW) 81 MG EC | Daily. | | | 8/20 | | e | | tablet | | | | 17 | | | + + + +---------+------+------+-------+ | fish oil 1,000 mg | Take 1,000 mg by | | 12 | 03/2 | | Activ | | capsule | mouth 2 times daily. | | | 8/20 | | e | | | | | | 17 | | | + + + +---------+------+------+-------+ | Trospium Chloride | Take 60 mg by mouth | | 3 | 03/2 | | Activ | | 60 MG CP24 | Daily. | | | 8/20 | | e | | | | | | 17 | | | + + + +---------+------+------+-------+ | docusate sodium | Take 100 mg by mouth | | 0 | | | Activ | | (DOK) 100 mg capsule | Daily. | | | | | e | + + + +---------+------+------+-------+ | PARoxetine (PAXIL) | Take 30 mg by mouth | | 0 | | | Activ | | 30 MG tablet | every morning. | | | | | e | + + + +---------+------+------+-------+ | omeprazole | Take 1 capsule by | 60 | 11 | 08/0 | | Activ | | (PRILOSEC) 20 mg | mouth 2 times daily. | capsule | | 6/20 | | e | | capsule | | | | 18 | | | + + + +---------+------+------+-------+ | fluticasone | 1 spray by Nasal | | 0 | | | Activ | | (FLONASE) 50 | route Daily. | | | | | e | | mcg/nasal spray | | | | | | | + + + +---------+------+------+-------+ | ambrisentan | Take 10 mg by mouth | | 0 | 03/2 | | Activ | | (LETAIRIS) 10 MG | Daily. | | | 07/20 | | e | | tablet | | | | 19 | | | + + + +---------+------+------+-------+ | SYMBICORT 160-4.5 | Inhale 2 puffs into | | 4 | 03/1 | | Activ | | MCG/ACT inhaler | the lungs 2 times | | | 07/20 | | e | | | daily. | | | 19 | | | + + + +---------+------+------+-------+ | levothyroxine | Take 137 mcg by | | 4 | 03/2 | | Activ | | (SYNTHROID) 137 MCG | mouth Daily. | | | 05/19 | | e | | tablet | | | | 19 | | | + + + +---------+------+------+-------+ | MILK OF MAGNESIA | Take 30 mLs by mouth | | 11 | 01/2 | | Activ | | 7.75 % suspension | Daily as needed. | | | 9/20 | | e | | | | | | 19 | | | + + + +---------+------+------+-------+ | propranolol | Take 10 mg by mouth | | 2 | 03/2 | | Activ | | (INDERAL) 10 mg | 2 times daily. | | | 8/20 | | e | | tablet | | | | 19 | | | + + + +---------+------+------+-------+ | SF 5000 PLUS 1.1 % | Place 1 Application | | 3 | 02/0 | | Activ | | CREA | onto teeth 2 times | | | 6/20 | | e | | | daily. | | | 19 | | | + + + +---------+------+------+-------+ | Respiratory | Replacement BiPAP | 1 each | 0 | 04/0 | | Activ | | Therapy Supplies | machine and | | | 3/20 | | e | | MISCIndications: | supplies. Mask, head | | | 19 | | | | Obstructive sleep | gear, chinstrap, | | | | | | | apnea (adult) | hoses, humidifier | | | | | | | (pediatric) | chamber and filters. | | | | | | | | Lifetime. Dx: | | | | | | | | [phone]. Remain at | | | | | | | | current settings: | | | | | | | | IPAP 16/EPAP 5, rate | | | | | | | | 8, O2 bleed in 6 L. | | | | | | + + + +---------+------+------+-------+ Active Problems + + | Patient Care Coordination Note | + + | PCP BRITTANY Garvin | + + + + + | Problem | Noted Date | + + + | OAB (overactive bladder) | 03/01/2019 | + + + + + | Overview: Last Assessment & Plan: Moderately severe | | condition. Discussed the only reasonable alternative in my view, | | which is Botox. Reviewed the retention and complication rate. She | | is uncertain to proceed at this time, and therefore will remain | | on her Trospium 60mg ER daily for the time being Annual follow-up | | will be established. | + + + + + | High risk medication use | 06/12/2015 | + + + | Sleep related hypoxia | 12/15/2014 | + + + + + | Overview: On 4L oxygen bleed in | + + + + + | Parkinsonian tremor | 12/17/2013 | + + + + + | Overview: Last Assessment & Plan: -There is no data that | | supports Letairus as the cause of the tremor. However, please | | let this office know if the tremor worsens with the higher dose | | of Letairus.-This type of tremor is sometimes seen with | | anti-psychotic type medications. Please discuss this with your | | primary physician and consider evaluation neurologist. Last | | Assessment & Plan: -There is no data that supports Letairus as | | the cause of the tremor. However, please let this office know if | | the tremor worsens with the higher dose of Letairus.-This type | | of tremor is sometimes seen with anti-psychotic type medications. | | Please discuss this with your primary physician and consider | | evaluation neurologist. | + + + + + | Hair loss | 09/17/2013 | + + + | Cor pulmonale, chronic | 09/17/2013 | + + + | Borderline abnormal TFTs | 09/17/2013 | + + + + + | Overview: TSH 8.02 09/11/13 | + + + + + | Primary pulmonary hypertension | 08/27/2013 | + + + + + | Overview: Overview: [facility] 05/10/13: RV 109/22PA 105/47 Mean PA | | 63Wedge mean 10Overview: -[facility] 04/2013 [facility]: FindingsBASELINE on 2L | | O2RA: mean 17, a 22, v 19 mmHgRV: 109/22 mmHgPA: 105/47 mmHgMean | | PA: 63 mmHgWedge: mean 10, a 10, v 15 mmHgBlood pressure: 132/79 | | mmHg.Heart Rate 84 bpmPulmonary arterial saturation was 50.2 | | %Hemoglobin 17.0 gm/dlFick CO 2.07 L/minFick CI 1.04 L/min/m2PVR | | 25.6 WUSVR 2943 dsc-5Inhaled Nitric Oxide 40 PPM with 2L O2PA: | | 107/47 mmHgMean PA: 63 mmHgWedge: mean 8, a 11, v 15 mmHgBlood | | pressure: 1115/79 mmHg.Heart Rate 86 bpmPulmonary arterial | | saturation was 49.0 %Hemoglobin 17.3 gm/dlFick CO 2.03 L/minFick | | CI 1.03 L/min/m2PVR 27.1 FUENTES-CTA negative for acute or chronic PE | | 02/2013Last Assessment & Plan: -echocardiogram at local | | hospital-[facility]. We will talk by phone with | | the results.-keep up the good work with walking, BIPAP use, | | oxygen use, and no smoking. -continue with your yearly flu | | vaccine.-you should have a f/u appointment with your new | | microsoft dynamics ax developer sometime in the next 6 months. -you are due for | | routine labs. Lab tests are recommended every 6 months. The | | pulmonary medications you are on can sometime have side effects | | so these laboratory testing is to monitor. Please take the | | prescription to local lab. -you are due for check of your | | thyroid. Please take the prescription to your local lab. -follow | | up in 1 year or sooner if needed. Dr. Arthur will help us | | decide if you need to come back sooner. Walk at next visit. | | Overview: -[facility] 04/2013 [facility]: FindingsBASELINE on 2L O2RA: mean 17, | | a 22, v 19 mmHgRV: 109/22 mmHgPA: 105/47 mmHgMean PA: 63 | | mmHgWedge: mean 10, a 10, v 15 mmHgBlood pressure: 132/79 | | mmHg.Heart Rate 84 bpmPulmonary arterial saturation was 50.2 | | %Hemoglobin 17.0 gm/dlFick CO 2.07 L/minFick CI 1.04 L/min/m2PVR | | 25.6 WUSVR 2943 dsc-5Inhaled Nitric Oxide 40 PPM with 2L O2PA: | | 107/47 mmHgMean PA: 63 mmHgWedge: mean 8, a 11, v 15 mmHgBlood | | pressure: 1115/79 mmHg.Heart Rate 86 bpmPulmonary arterial | | saturation was 49.0 %Hemoglobin 17.3 gm/dlFick CO 2.03 L/minFick | | CI 1.03 L/min/m2PVR 27.1 FUENTES-CTA negative for acute or chronic PE | | 02/2013Last Assessment & Plan: -echocardiogram at local | | hospital-[facility]. We will talk by phone with | | the results.-keep up the good work with walking, BIPAP use, | | oxygen use, and no smoking. -continue with your yearly flu | | vaccine.-you should have a f/u appointment with your new | | microsoft dynamics ax developer sometime in the next 6 months. -you are due for | | routine labs. Lab tests are recommended every 6 months. The | | pulmonary medications you are on can sometime have side effects | | so these laboratory testing is to monitor. Please take the | | prescription to local lab. -you are due for check of your | | thyroid. Please take the prescription to your local lab. -follow | | up in 1 year or sooner if needed. Dr. Arthur will help us | | decide if you need to come back sooner. Walk at next visit. | |Overview: | |-[facility] 04/2013 [facility]: Findings | |BASELINE on 2L O2 | |RA: mean 17, a 22, v 19 mmHg | |RV: 109/22 mmHg | |PA: 105/47 mmHg | |Mean PA: 63 mmHg | |Wedge: mean 10, a 10, v 15 mmHg | |Blood pressure: 132/79 mmHg. | |Heart Rate 84 bpm | |Pulmonary arterial saturation was 50.2 % | |Hemoglobin 17.0 gm/dl | |Rehan CO 2.07 L/min | |Rehan CI 1.04 L/min/m2 | |PVR 25.6 FUENTES | |SVR 2943 dsc-5 | | | |Inhaled Nitric Oxide 40 PPM with 2L O2 | |PA: 107/47 mmHg | |Mean PA: 63 mmHg | |Wedge: mean 8, a 11, v 15 mmHg | |Blood pressure: 1115/79 mmHg. | |Heart Rate 86 bpm | |Pulmonary arterial saturation was 49.0 % | |Hemoglobin 17.3 gm/dl | |Rehan CO 2.03 L/min | |Rehan CI 1.03 L/min/m2 | |PVR 27.1 FUENTES | | | |-CTA negative for acute or chronic PE 02/2013 | | | |Last Assessment & Plan: | [place] [facility] [place] talk by phone with t he results. | |-keep up the good work with walking, BIPAP use, oxygen use, and no smoking. | |-continue with your yearly flu vaccine. | |-you should have a f/u appointment with your new microsoft dynamics ax developer sometime in the next 6 month s. | |-you are due for routine labs. Lab tests are recommended every 6 months. The pulmonary med ications you are on can sometime have side effects so these laboratory testing is to monitor . Please take the prescription to local lab. | |-you are due for check of your thyroid. Please take the prescription to your local lab. | |-follow up in 1 year or sooner if needed. Dr. Arthur will help us decide if you need to come back sooner. Walk at next visit. | + + + + + | Morbid obesity | 08/08/2013 | + + + | Mixed, or nondependent drug abuse | 08/08/2013 | + + + + + | Overview: Overview: | | -formerly used nasal cocaine and smoked, sniffed crank | | -last use 16 years | + + + + + | Seasonal allergies | 08/08/2013 | + + + | Smoking | 08/08/2013 | + + + + + | Overview: Overview: | | -quit 2012 | | | | Overview: | | -quit 2012 | + + + + + | COPD (chronic obstructive pulmonary disease) | 06/15/2013 | + + + | Obstructive sleep apnea | 06/15/2013 | + + + + + | Overview: BiPAP ST IPAP 16/EPAP 5, rate 8, O2 bleed in 6L | | | | Last Assessment & Plan: | | -continue with CPAP as you are doing | + + + + + | Hypoxemia | 06/15/2013 | + + + + + | Overview: On 4L with exertion, resumed 1L at rest 06/12/15 | + + + + + | Anasarca | 05/03/2013 | + + + | COPD (chronic obstructive pulmonary disease) with chronic | 05/03/2013 | | bronchitis | | + + + | Morbid obesity with BMI of 45.0-49.9, adult | 05/03/2013 | + + + | Pulmonary hypertension | 05/03/2013 | + + + | Right heart failure due to pulmonary hypertension | 05/03/2013 | + + + | Dyspnea | 05/02/2013 | + + + | Bipolar 1 disorder | | + + + | Vitamin D deficiency | | + + + | GERD (gastroesophageal reflux disease) | | + + + | Hypothyroidism | | + + + | Seizure disorder | | + + + | Developmental delay | | + + + + + | Overview: Overview: ; | | ; Cognitive impairment | + + + +---+ | Female stress incontinence | | + +---+ | Hypertension | | + +---+ | Impulse control disorder | | + +---+ | Hyperlipidemia | | + +---+ Resolved Problems + + + + | Problem | Noted | Resolved | | | Date | Date | + + + + | Flushing | 09/17/20 | | | | 13 | 4 | + + + + Immunizations + + + + | Name | Administration Dates | Next Due | + + + + | INFLUENZA PF | 08/15/2017 | | | QUAD(PED/ADOL/ADULT) | | | | ,PSKT or VIAL | | | + + + + | INFLUENZA PF | 08/16/2016, 07/30/2015, 07/31/2013 | | | TRIVALENT(PED/ADOL/A | | | | LOBITO FARMER | | | + + + + | PNEUMOCOCCAL | 03/12/2015 | | | POLYSACCHARIDE | | | | 23-VALENT (PPSV23) | | | + + + + Family History + + +------+ + | Medical History | Relation | Name | Comments | + + +------+ + | Alcohol abuse | Brother | | | + + +------+ + | Drug abuse | Brother | | | + + +------+ + | Mental illness | Brother | | | + + +------+ + | Tobacco Use | Brother | | | + + +------+ + | Alcohol abuse | Brother | | | + + +------+ + | Drug abuse | Brother | | | + + +------+ + | Mental illness | Brother | | | + + +------+ + | Tobacco Use | Brother | | | + + +------+ + | Alcohol abuse | Brother | | | + + +------+ + | Drug abuse | Brother | | | + + +------+ + | Tobacco Use | Brother | | | + + +------+ + | Alcohol abuse | Brother | | | + + +------+ + | Drug abuse | Brother | | | + + +------+ + | Tobacco Use | Brother | | | + + +------+ + | Alcohol abuse | Brother | | | + + +------+ + | Drug abuse | Brother | | | + + +------+ + | Tobacco Use | Brother | | | + + +------+ + | Cancer | Maternal | | Breast | | | Grandmoth | | | | | er | | | + + +------+ + + +------+ + + | Relation | Name | Status | Comments | + +------+ + + | Brother | | Alive | | + +------+ + + | Brother | | Alive | | + +------+ + + | Brother | | Alive | | + +------+ + + | Brother | | Alive | | + +------+ + + | Brother | | Alive | | + +------+ + + | Father | | | MVA | + +------+ + + | Maternal Grandmother | | | | + +------+ + + | Mother | | | murdered | + +------+ + + | Son | | Other | adopted | + +------+ + + Social History + + + [...] | | + +---+---+---+ + + | Tobacco Cessation: Counseling Given: No | + + + + +---------+ + [...] recent travel history available. | + + Last Filed Vital Signs + + + + + | Vital Sign | Reading | Time Taken | Comments | + + + + + | Blood Pressure | 100/70 | 04/16/2019 1:00 PM | | | | | PDT | | + + + + + | Pulse | 54 | 04/16/2019 1:00 PM | | | | | PDT | | + + + + + | Temperature | 37 C (98.6 F) | 01/31/2019 1:36 PM | | | | | PDT | | + + + + + | Respiratory Rate | 16 | 04/16/2019 1:00 PM | | | | | PDT | | + + + + + | Oxygen Saturation | 94% | 04/16/2019 1:00 PM | | | | | PDT | | + + + + + | Inhaled Oxygen | - | - | | | Concentration | | | | + + + + + | Weight | 81.1 kg (178 lb 12.7 | 04/16/2019 1:00 PM | | | | oz) | PDT | | + + + + + | Height | 139.7 cm (4' 7") | 01/31/2019 1:36 PM | | | | | PDT | | + + + + + | Body Mass Index | 41.56 | 01/31/2019 1:36 PM | | | | | PDT | | + + + + + Plan of Treatment +--------+---------+ + + + | Date | Type | Specialty | Care Team | Description | +--------+---------+ + + + | 04/16/ | Office | Pulmonology | Helen Astudillo | | | 2020 | Visit | | MD Vikash [address] | | | | | | [address] | | | | | | [place] [address] | | | | | | [phone] | | | | | | | | +--------+---------+ + + + | 04/30/ | Office | Sleep Medicine | Jacky Calderon PA | | | 2019 | Visit | | [address] | | | | | | [place] | | | | | | [address] | | | | | | | | +--------+---------+ + + + + + + + + | Health Maintenance | Due Date | Last Done | Comments | + + + + + | Hepatitis C | | | | | Screening | 3 | | | + + + + + | Vaccine: | | | | | Dtap/Tdap/Td (1 - | 4 | | | | Tdap) | | | | + + + + + | Cervical Cancer | | | | | Screening (Pap) | 3 | | | + + + + + | Colorectal Cancer | | | | | Screening | 3 | | | | (Colonoscopy) | | | | + + + + + | Vaccine: Zoster (1 | | | | | of 2) | 3 | | | + + + + + | Breast Cancer | | | | | Screening | 8 | | | + + + + + | Vaccine: Influenza | | 08/15/2017, 08/16/2016, | | | (Season Ended) | 0 | 07/30/2015, Additional history | | | | | exists | | + + + + + | Vaccine: | Completed | 03/12/2015 | | | Pneumococcal 19-64 | | | | + + + + + Results Not on filefrom Last 3 Months Insurance + +--------+ +--------+ +---------+--------+ | Payer | Benefi | Subscriber | Effect | Phone | Address | Type | | | t Plan | ID | sofi | | | | | | / | | Dates | | | | | | Group | | | | | | + +--------+ +--------+ +---------+--------+ | [employer] | [employer] | [id number] | 04/30/20 | [phone] | | Medica | | MEDICAID HMO | HEALTH | | 14-Pre | 1 | | id | | | MDCD | | sent | | | | | | [place]MO [place] | | | | | | + +--------+ +--------+ +---------+--------+ + +--------+ +--------+ + + | Guarantor Name | Accoun | Relation to | Date | Phone | Billing Address | | | t Type | Patient | of | | | | | | | | | | + +--------+ +--------+ + + | Margarita Rowley | Person | Self [birth year] | [address] | | | al/[place] | | 1965 | [phone] | [place] | | | jammie | | | [address] (Home) | [address] | + +--------+ +--------+ + + Advance Directives + + + + + | Type | Date Recorded | Patient | Explanation | | | | Licensing Registration Examiner | | + + + + + | Power of | | | | | Ballet Soloist | | | | + + + + + | Advance | 03/26/2015 12:35 | | | | Directive | PM | | | + + + + +
--- OUTSIDE RECORDS SUMMARY | ~2020-02-24 | XMS | Encounter Summary ---
Demographics + + + | Address | [address] | | | [place] [address] | + + + | Home Phone | | + + + | Preferred Language | Unknown | + + + | Marital Status | Single | + + + | Yazidism Affiliation | [id number] | + + + | Race | Unknown | + + + | Ethnic Group | Unknown | + + + Author + + + | Author | [facility] | | | and [place] | + + + | Organization | [facility] | | | and [place] | + + + | Address | Unknown | + + + | Phone | Unavailable | + + + Support + + + + + | Name | Relationship | Address | Phone | + + + + + | [employer] | ECON | [id number] | | | | | Unknown | | + + + + + Care Team Providers + +------+ + | Care Paper Cup Machine Tender Name | Role | Phone | + +------+ + | Yuni Shrestha | PCP | | + +------+ + Reason for Visit + + + | Reason | Comments | + + + | Referral | | + + + Encounter Details +--------+ + + + + | Date | Type | Department | Care Team | Description | +--------+ + + + + | 06/30/ | Telephone | [facility] | [place], | Referral | | 2016 | | GASTROENTEROLOGY | BRITTANY Maddox [address] | | | | | [address] [place] | [place], [address] | | | | | [address] [place], [place] | [place], [place] | | | | | [address] | [address] | | | | | [phone] | | | +--------+ + + + [...] | | | | | [place] [address] | | | | | | [phone] | | | | | | | | +--------+---------+ + + + | 04/30/ | Office | Sleep Medicine | Jacky Calderon PA | | | 2020 | Visit | | [address] | | | | | | [place] | | | | | | [address] | | | | | | | | +--------+---------+ + + + documented as of this encounter Visit Diagnoses Not on filedocumented in this encounter"
--- OUTSIDE RECORDS SUMMARY | ~2020-02-24 | XMS | Encounter Summary ---
Demographics + + + | Address | [address] | | | [place] [address] | + + + | Home Phone | | + + + | Preferred Language | Unknown | + + + | Marital Status | Single | + + + | Spiritism Affiliation | 1009 | + + + | Race | Unknown | + + + | Ethnic Group | Unknown | + + + Author + + + | Author | [facility] | | | and [place] | + + + | Organization | [facility] | | | and [place] | + + + | Address | Unknown | + + + | Phone | Unavailable | + + + Support + + + + + | Name | Relationship | Address | Phone | + + + + + | [employer] | ECON | [id number] | | | | | Unknown | | + + + + + Care Team Providers + +------+ + | Care Wireless Operator Name | Role | Phone | + +------+ + | Gela Trimble NP | PCP | | + +------+ + Encounter Details +--------+ + + + + | Date | Type | Department | Care Team | Description | +--------+ + + + + | 09/17/ | Hospital | [facility] | [place], | Primary pulmonary | | 2012 | Encounter | [facility] LAB[facility]ORY | Vera Farrar MD | hypertension (HCC) | | | | [address] | | | | | | [place] | | | | | | [address] | | | | | | [phone] | | | +--------+ + + + [...] + + + +---------+ + + | [place] Starch POWD | by Does not apply [...] + + + +---------+ + + | | Take 1 tablet by | | 0 | | | | HYDROcodone-acetamin | mouth every 6 hours | | | | 4 | | ophen (NORCO) 5-325 | as needed. | | | | | | mg per tablet | | | | | | [...] + + + +---------+ + + | nitrofurantoin | Take 100 mg by mouth | | 0 | | | | (MACROBID) 100 mg | 2 times daily. | | | | 4 | | capsule | | | | | | + + + +---------+ + + | [place]-3 Fatty | Take by mouth. | | [...] 08/06/20 | | | Therapy Supplies | Fatou's office | | | 13 | 8 [...] encounter Progress Notes Vera Lainez MD - 09/17/2013 3:38 PM PST Quick Note: Please let the patient's caregivers know her fluid status looks really pretty good. documented in this encounter Plan of Treatment +--------+---------+ + + + | Date | Type | Specialty | Care Team | Description | +--------+---------+ + + + | 04/16/ Office | Pulmonology | Helen Astudillo | | | 2019 | Visit | | MD Vikash [address] | | | | | [address] | | | | | | [place] [address] | | | | | | [phone] | | | | | | | | +--------+---------+ + + + | 04/30/ | Office | Sleep Medicine | Jacky Calderon PA | | | 2019 | Visit | | [address] | | | | | | [place] | | | | | | [address] | | | | | | | | +--------+---------+ + + + documented as of this encounter Procedures + +--------+ + + + | Procedure Name | Priori | Date/Time | Associated Diagnosis | Comments | | | ty | | | | + +--------+ + + + | B TYPE NATRIURETIC | Routin | 09/17/2013 | Primary pulmonary | Results for this | | PEPTIDE | e | 12:24 PM | hypertension (HCC) | procedure are in the | | | | PST | | results section. | + +--------+ + + + documented in this encounter Results B Type Natriuretic Peptide (09/17/2013 12:24 PM PST) + + + + + + | Component | Value | Ref Range | Performed | Pathologist | | | | | At | Signature | + + + + + + | BNP | 116 (H)Comment: Testing | <100 pg/mL | [facility] | | | | performed on the [facility] | | [employer] | | | | [facility] | | MEDICAL | | | | Analyzer. | | CENTER - | | | | | | LABORATORY | | + + + + + + + + | Specimen | + + | Blood specimen | | (specimen) | + + + + + + + | Performing | Address | City/State/Zipcode | Phone Number | | Organization | | | | + + + + + | [facility] | [address] | [place], [place] | [phone] | | [facility] | | [address] | | | - LABORATORY | | | | + + + + + | [facility] | [address] | [place], [place] | | | [facility] | | [address], [facility] | | | - LABORATORY | | | | + + + + + documented in this encounter Visit Diagnoses + + | Diagnosis | + + | Primary pulmonary hypertension (HCC) Primary pulmonary hypertension | + + documented in this encounter"
--- OUTSIDE RECORDS SUMMARY | ~2020-02-24 | XMS | Encounter Summary ---
Demographics + + + | Address | [address] | | | [place] [address] | + + + | Home Phone | | + + + | Preferred Language | Unknown | + + + | Marital Status | Single | + + + | Uatsdin Affiliation | 1009 | + + + | Race | Unknown | + + + | Ethnic Group | Unknown | + + + Author + + + | Author | [facility] | | | and [place] | + + + | Organization | [facility] | | | and [place] | + + + | Address | Unknown | + + + | Phone | Unavailable | + + + Support + + + + + | Name | Relationship | Address | Phone | + + + + + | [employer] | ECON | [id number] | | | | | Unknown | | + + + + + Care Team Providers + +------+ + | Care Rubber Goods Inspector Name | Role | Phone | + +------+ + | Gela Trimble BILLPOSTER | PCP | | + +------+ + [...] | Primary | [place], | [address] | | | | | pulmonary | Vera B, | [place], | | | | | hypertension | MD [address] | [place] | | | | | (HCC) | [address] | [address] | | | | | Procedures | [place], | Phone: | | | | | ECHO | [place] [address] | [phone] | | | | | Complete | | Fax: | | | | | | | [phone] | +--------+--------+ + + + + Reason [...] | Primary | [place], | [address] | | | | | pulmonary | Vera B, | [place], | | | | | hypertension | MD [address] | [place] | | | | | ([facility]) | [address] | [address] | | | | | Procedures | [place], | Phone: | | | | | ECHO | [place] [address] | [phone] | | | | | Complete | | Fax: | | | | | | | [phone] | +--------+--------+ + + + + Encounter Details +--------+ + + + + | Date | Type | Department | Care Team | Description | +--------+ + + + + | 09/11/ | Hospital | [facility] | [place], | Primary pulmonary | | 2013 | Encounter | MED CTR ECHO [address] | Vera Farrar MD | hypertension | | | | [address] | [place], | | | | | [place] [address] | Technologist | | | | | [phone] | | | +--------+ + + + [...] | 0 | | | | (LETAIRIS) 10 MG | Daily. | | | | 8 | | tablet | | | | [...] + + + +---------+ + + | [place] Starch POWD | by Does not apply [...] + + + +---------+ + + | [place]-3 Fatty | Take by mouth. | | [...] + +---------+ + + | Respiratory | Replacement CPAP | 1 each | 0 | 06/20/20 | | | Therapy Supplies | supplies. Mask, head | | | 14 | 9 | | MISCIndications: | gear, chinstrap, | | | | | | Obstructive sleep | hoses, humidifier | | | | | | apnea (adult) | chamber and filters. | | | | | | (pediatric) | Lifetime. Dx: | | | | | | | 327.23 | | | | | + + [...] encounter Progress Notes Vera Lainez MD - 09/13/2014 10:24 AM PST Quick Note: Please let the patient's caregivers know her echocardiogram looks much better. documented in this encounter Plan of Treatment [...] | | | | | [place] [address] | | | | | | [phone] | | | | | | | | +--------+---------+ + + + | 04/30/ | Office | Sleep Medicine | Jacky Calderon PA | | | 2019 | Visit | | [address] | | | | | | [place] | | | | | | [id number] | | | | | | | | +--------+---------+ + + + documented as of this encounter Procedures + +--------+ + + + | Procedure Name | Priori | Date/Time | Associated Diagnosis | Comments | | | ty | | | | + +--------+ + + + | ECHO COMPLETE | Routin | 09/11/2014 | Primary pulmonary | Results for this | | | e | 10:36 AM | hypertension | procedure are in the | | | | PST | | results section. | + +--------+ + + + | LVEF VALUE | Routin | 09/11/2014 | | Results for this | | | e | | | procedure are in the | | | | | | results section. | + +--------+ + + + documented in this encounter Results ECHO Complete (09/11/2014 10:36 AM PST) + + | Specimen | + + | | + + + + + | Narrative | Performed At | + + + | [facility] ECHOCARD[facility] REPORT | [place] | | STUDY DATE: 09/11/2014 PATIENT NAME: Margarita Rowley : | [facility] | | 1965 PCP: Gela Trimble NP | [facility] | | CLINICAL HISTORY/DIAGNOSIS: Pulmonary hypertension A | - IMAGING | | transthoracic echocardiogram with M-mode, pulsed-wave and color | | | Doppler was performed with standard views obtained. The technical | | | quality of this examination is borderline, given the patient's | | | obesity and limited echocardiographic windows. The heart rhythm | | | during the echo is normal with heart rate in the 70s. The M-mode, | | | two-dimensional, color flow and spectral Doppler data were reviewed | | | and support the following interpretation: Interpretation: Left | | | Atrium: Left atrial size is normal. Left ventricle: Left | | | ventricular size is normal with normal wall thickness and motion, | | | and normal left ventricular systolic function. The estimated | | | ejection fraction is 60%. Left ventricular diastolic function is | | | normal. Aortic root: Aortic root is normal. Right Atrium: Normal | | | size. Right ventricle: Right ventricular size is normal with normal | | | wall thickness and normal right ventricular systolic function. | | | Pericardium: Pericardium is normal. Pulmonary artery: Pulmonary | | | artery is normal. Aortic valve: Aortic valve is trileaflet and | | | opens normally. Mitral valve: Normal with mild mitral regurgitation. | | | Pulmonic valve: Pulmonic valve is normal. Tricuspid valve: Normal | | | with mild insufficiency. peak velocities measured at 3 m/s | | | consistent with RV SP 42-47 mm mercury. Vena cava: The inferior | | | vena cava is normal. There is greater than 50% inspiratory | | | collapse of the IVC. IMPRESSIONS: 1. Normal LV size and | | | systolic function with LVEF 60%. 2. Mild mitral and tricuspid | | | insufficiency. 3. RV SP 42-47 mm mercury. 4. Grade 1 LV | | | diastolic dysfunction. Measurements: Height: 60 Weight: | | | 208 Aortic root: 28 mm Aortic cusp sep: 15 mm LA: 30 mm | | | IVS-diastole: 8 mm IVS-systole: 10 mm LVPW diastole: 10 mm | | | LVPW systole: 15 mm LV diameter-diastole: 37 mm LV | | | diameter-systole: 22 mm Fractional shortenin % PFV aortic | | | valve: m/s MPG mitral valve: mmHg PFV TR jet: 3.05 m/s | | | RA/RV PP mmHg LA volume: 30 mL LA index: 16 mL/m2 Mitral | | | Inflow DT: 272 ms IVRT: 110 ms Valsalva: Not needed PWDTI S | | | wave: 7.2 cm/s PWDTI E wave: 8.0 cm/s PWDTI A wave: 10.4 cm/s | | | E/A Ratio: 0.769 E/E Ratio: 10.63 Signed by: S. | | | Ananth Salguero MD PhD [facility] 09/11/2014 10:45 | | | Associate Financial Advisor: Hung Caro, RDCS, RVT, RDMS | | + + + + + | Procedure Note | + + | Roberto Salguero MD - 09/12/2014 9:12 AM [facility] | | CENTERECHOCARDIOGRAM REPORTSTUDY DATE: 09/11/2014PATIENT NAME: Margarita Vora: | | 1965MRN: [id number]: Gela Trimble, CRITICAL ACCESS HOSPITALLINICAL HISTORY/DIAGNOSIS: | | Pulmonary hypertensionA transthoracic echocardiogram with M-mode, pulsed-wave and color | | Doppler was performed with standard views obtained. The technical quality of this | | examination is borderline, given the patient's obesity and limited echocardiographic | | windows. The heart rhythm during the echo is normal with heart rate in the 70s. The | | M-mode, two-dimensional, color flow and spectral Doppler data were reviewed and support | | the following interpretation:Interpretation:Left Atrium: Left atrial size is normal.Left | | ventricle: Left ventricular size is normal with normal wall thickness and motion, and | | normal left ventricular systolic function. The estimated ejection fraction is 60%. | | Left ventricular diastolic function is normal.Aortic root: Aortic root is normal.Right | | Atrium: Normal size.Right ventricle: Right ventricular size is normal with normal wall | | thickness and normal right ventricular systolic function.Pericardium: Pericardium is | | normal.Pulmonary artery: Pulmonary artery is normal.Aortic valve: Aortic valve is | | trileaflet and opens normally.Mitral valve: Normal with mild mitral | | regurgitation.Pulmonic valve: Pulmonic valve is normal.Tricuspid valve: Normal with | | mild insufficiency. peak velocities measured at 3 m/s consistent with RV SP 42-47 mm | | mercury.Vena cava: The inferior vena cava is normal. There is greater than 50% | | inspiratory collapse of the IVC.IMPRESSIONS:1. Normal LV size and systolic function | | with LVEF 60%.2. Mild mitral and tricuspid insufficiency.3. RV SP 42-47 mm mercury.4. | | Grade 1 LV diastolic dysfunction.Measurements:Height: 60Weight: 208Aortic root: 28 | | mmAortic cusp sep: 15 mmLA: 30 mmIVS-diastole: 8 mmIVS-systole: 10 mmLVPW diastole: | | 10 mmLVPW systole: 15 mmLV diameter-diastole: 37 mmLV diameter-systole: 22 | | mmFractional shortenin %PFV aortic valve: m/sMPG mitral valve: mmHgPFV TR jet: | | 3.05 m/[place]/RV PP mmHgLA volume: 30 mLLA index: 16 mL/f0Ykxaky Inflow DT: 272 | | msIVRT: 110 msValsalva: Not neededPWDTI S wave: 7.2 cm/sPWDTI E wave: 8.0 cm/sPWDTI | | A wave: 10.4 cm/sE/A Ratio: 0.769E/E Ratio: 10.63Signed by: Artie Salguero MD | | PhD [facility] 09/11/2014 10:45 Associate Financial Advisor: Hung Caro, RDCS, RVT, RDMS | |Tricuspid valve: Normal with mild insufficiency. peak velocities measured at 3 m/s consiste nt with RV SP 42-47 mm mercury. | |Vena cava: The inferior vena cava is normal. There is greater than 50% inspiratory collap se of the IVC. | | | | | |IMPRESSIONS: | |1. Normal LV size and systolic function with LVEF 60%. | |2. Mild mitral and tricuspid insufficiency. | |3. RV SP 42-47 mm mercury. | |4. Grade 1 LV diastolic dysfunction. | | | | | | | | | |Measurements: | |Height: 60 | |Weight: 208 | |Aortic root: 28 mm | |Aortic cusp sep: 15 mm | |LA: 30 mm | |IVS-diastole: 8 mm | |IVS-systole: 10 mm | |LVPW diastole: 10 mm | |LVPW systole: 15 mm | |LV diameter-diastole: 37 mm | |LV diameter-systole: 22 mm | |Fractional shortenin % | |PFV aortic valve: m/s | |MPG mitral valve: mmHg | |PFV TR jet: 3.05 m/s | |RA/RV PP mmHg | |LA volume: 30 mL | |LA index: 16 mL/m2 | |Mitral Inflow DT: 272 ms | |IVRT: 110 ms | |Valsalva: Not needed | |PWDTI S wave: 7.2 cm/s | |PWDTI E wave: 8.0 cm/s | |PWDTI A wave: 10.4 cm/s | |E/A Ratio: 0.769 | |E/E Ratio: 10.63 | | | | | | | | | |Signed by: Artie Salguero MD PhD [facility] | | 09/11/2014 10:45 | | | | | |Associate Financial Advisor: Hung Caro, RDCS, RVT, RDMS | + + + + + + + | Performing | Address | City/State/Zipcode | Phone Number | | Organization | | | | + + + + + | [facility] | [address] | [place] | [phone] | | [facility] | | [address] | | | - IMAGING | | | | + + + + + LVEF VALUE (09/11/2014) + +-------+ + + + | Component | Value | Ref Range | Performed | Pathologist | | | | | At | Signature | + +-------+ + + + | LVEF-TTE | 60 | | | | | TRANSTHORAC | | | | | | IC ECHO | | | | | + +-------+ + + + documented in this encounter Visit Diagnoses + + | Diagnosis | + + | Primary pulmonary hypertension | + + documented in this encounter"
--- OUTSIDE RECORDS SUMMARY | ~2020-02-24 | XMS | Encounter Summary ---
Demographics + + + | Address | [address] | | | [place] [address] | + + + | Home Phone | | + + + | Preferred Language | Unknown | + + + | Marital Status | Single | + + + | Druze Affiliation | 1009 | + + + | Race | Unknown | + + + | Ethnic Group | Unknown | + + + Author + + + | Author | [facility] | | | and [place] | + + + | Organization | [facility] | | | and [place] | + + + | Address | Unknown | + + + | Phone | Unavailable | + + + Support + + + + + | Name | Relationship | Address | Phone | + + + + + | [employer] | ECON | [id number] | | | | | Unknown | | + + + + + Care Team Providers + +------+ + | Care Sort Worker Name | Role | Phone | + +------+ + PCP | Unavailable | + +------+ + Encounter Details +--------+ + + + + | Date | Type | Department | Care Team | Description | +--------+ + + + + | 04/12/ | Hospital | [facility] | Shady Mcdonald | | | 2011 | Encounter | HOSPITAL LABORATORY | MD Rudi [address] | | | | | [address] [place] | [place], [place] | | | | | [place] | [address] | | | | | [address] | [phone] | | | | | [phone] | | | +--------+ + + + [...] | | | | | [place] [address] | | | | | | [phone] | | | | | | | | +--------+---------+ + + + | 04/30/ | Office | Sleep Medicine | Jacky Calderon PA | | | 2020 | Visit | | [address] | | | | | | [place] | | | | | | [address] | | | | | | | | +--------+---------+ + + + documented as of this encounter Visit Diagnoses Not on filedocumented in this encounter"
--- OUTSIDE RECORDS SUMMARY | ~2020-02-24 | XMS | Encounter Summary ---
Demographics + + + | Address | [address] | | | [place] [address] | + + + | Home Phone | | + + + | Preferred Language | Unknown | + + + | Marital Status | Single | + + + | Quaker Affiliation | 1009 | + + + | Race | Unknown | + + + | Ethnic Group | Unknown | + + + Author + + + | Author | [facility] | | | and [place] | + + + | Organization | [facility] | | | and [place] | + + + | Address | Unknown | + + + | Phone | Unavailable | + + + Support + + + + + | Name | Relationship | Address | Phone | + + + + + | [employer] | ECON | [id number] | | | | | Unknown | | + + + + + Care Team Providers + +------+ + | Care Pointer Helper Name | Role | Phone | + +------+ + | Ynui Shrestha | PCP | | + +------+ + Encounter Details +--------+ + + + + | Date | Type | Department | Care Team | Description | +--------+ + + + + | 06/12/ | Hospital | [facility] | [place], | Exercise hypoxemia | | 2014 | Encounter | MED CTR PULMONARY | Vera Farrar MD | ([facility]); Primary | | | | FUNCTION [address] | | pulmonary | | | | [place], | | hypertension | | | | [place] [address] | | | | | | [phone] | | | +--------+ + + + [...] L into the | | 0 | 08/13/20 | | | | lungs continuous. 1L | | | 15 | | | | at rest, 4L with | | | | | | | exertion, 5L when | | | | | | | asleep. | | | | | + + + +---------+ + + | potassium chloride | Take 40 mEq by mouth | | 0 | | | | (K-DUR) 20 mEq | Daily. | | | | | | tablet | | | | | | + + + +---------+ + + | risperiDONE | 0.5 mg. Take one | | 5 | 11/27/19 | | | (RISPERDAL) 1 mg | tablet in the | | | 15 | | | tablet | morning and two | | | | | | | tablets in the | | | | | | | evening | | | | | + + + +---------+ + + | simvastatin | Take 20 mg by mouth | | 0 | | | | (ZOCOR) 20 mg tablet | nightly. | | | | | + + + +---------+ + + | sodium chloride | use as directed per | 1 | 0 | 12/11/19 | | | (OCEAN) 0.65% nasal | package instructions | Bottle | | 15 | | | spray | as needed for | | | | | | | congestion or | | | | | | | dryness during the | | | | | | | day. | | | | | + + [...] + + +---------+ + + | | 3 drops every 2 | | 0 | | | | antipyrine-benzocain | hours as needed for | | | | 6 | | e (AURALGAN) otic | Pain. | | | | | | solution | | | | | | + + + +---------+ + + | beclomethasone | Inhale 1 puff into | 1 | 11 | 11/13/19 | | | (QVAR) 80 mcg/puff | the lungs 2 times | Inhaler | | 15 | 6 | | inhalerIndications: | daily. | | [...] + + + +---------+ + + | [place] Starch POWD | by Does not apply [...] + + + +---------+ + + | nicotine | Place 7 mg onto the | | 0 | | | | (NICODERM) 7 mg/24 | skin every 24 hours. | | | | 6 | | hr | | | | | | + + + +---------+ + + | [place]-3 Fatty | Take by mouth. | | [...] by mouth | | 0 | | 04/04/201 | | (ZOFRAN ODT) 4 mg | [...] 08/06/20 | | | Therapy Supplies | [facility]'s office | | | 13 | 8 [...] | | | | | [place] [address] | | | | | | [phone] | | | | | | | | +--------+---------+ + + + | 04/30/ | Office | Sleep Medicine | Jacky Calderon PA | | | 2019 | Visit | | [address] | | | | | | [place] | | | | | | [id number] | | | | | | | | +--------+---------+ + + + documented as of this encounter Procedures + +--------+ + + + | Procedure Name | Priori | Date/Time | Associated Diagnosis | Comments | | | ty | | | | + +--------+ + + + | PFT PULMONARY | BHAVIN | 06/12/2015 | Exercise hypoxemia | | | FUNCTION TESTING | | 9:41 AM | ([facility]) Primary | | | ORDERS | | PDT | pulmonary | | | | | | hypertension | | + +--------+ + + + | DIAGNOSTIC REPORT - | | 06/12/2015 | | | | EXTERNAL SCAN | | 12:00 AM | | | | | | PDT | | | + +--------+ + + + documented in this encounter Visit Diagnoses + + | Diagnosis | + + | Exercise hypoxemia (HCC) Hypoxemia | + + | Primary pulmonary hypertension | + + documented in this encounter"
--- OUTSIDE RECORDS SUMMARY | ~2020-02-24 | XMS | Encounter Summary ---
Demographics + + + | Address | [address] | | | [place] [address] | + + + | Home Phone | | + + + | Preferred Language | Unknown | + + + | Marital Status | Single | + + + | Confucianism Affiliation | [id number] | + + + | Race | Unknown | + + + | Ethnic Group | Unknown | + + + Author + + + | Author | [facility] | | | and [place] | + + + | Organization | [facility] | | | and [place] | + + + | Address | Unknown | + + + | Phone | Unavailable | + + + Support + + + + + | Name | Relationship | Address | Phone | + + + + + | [employer] | ECON | [id number] | | | | | Unknown | | + + + + + Care Team Providers + +------+ + | Care Legal Officer Name | Role | Phone | [...] + + + | Closed | | | Diagnoses | | OP [facility] | | | | | Primary | Fatou | [facility] | | | | | pulmonary | Vera Farrar, | HOSPITAL | | | | | hypertension | MD [address] | [address] | | | | | (HCC) | [address] | [address]VE | | | | | Procedures | [place], | [place], [place] | | | | | ECHO | [place] [address] | [address] | | | | | Complete [place] | | Phone: | | | | | ECHO HEART | | [phone] | | | | | [place] | | Fax: | | | | | [address] | | [phone] | | | | | [place] | | | | | | | ECHO HEART | | | | | | | [place] | | | | | | | MPLETE, [place]/O | | | | | | | DOPPLER | | | +--------+--------+ + + + + Reason for Visit + + + | Reason | Comments | + + + | Pulmonary Disease | 3 month follow up | | Appointment | | + + + Evaluate & Treat (Routine) +--------+--------+ + + + + | Status | Reason | Specialty | Diagnoses / | Referred By | Referred To | | | | | Procedures | Contact | Contact | +--------+--------+ + + + + | Closed | | Pulmonary | Diagnoses | Fady, | Fatou, | | | | Disease / | Chronic | Yuni Schafer, | Vera Farrar, | | | | Pulmonology | obstructive | HYPERBARIC TECH [address] | MD | | | | | pulmonary | [address] | | | | | | disease, | [place], | | | | | | unspecified | [place] [address] | | | | | | ([facility]) | Phone: | | | | | | Procedures | [phone] | | | | | | F/U | Fax: | | | | | | | [phone] | | +--------+--------+ + + + + Encounter Details +--------+---------+ + + + | Date | Type | Department | Care Team | Description | +--------+---------+ + + + | 02/02/ | Office | [facility] | Ftaou, | Primary pulmonary | | 2016 | Visit | PULMONARY [address] | Vera Farrar MD | hypertension (HCC) | | | | [place], | | (Primary Dx); | | | | [place] [address] | | Chronic obstructive | | | | [phone] | | pulmonary disease, | | | | | | unspecified COPD | | | | | | type (HCC); GLORIA | | | | | | (obstructive sleep | | | | | | apnea); Hypoxemia; | | | | | | Sleep related | | | | | | hypoxia; High risk | | | | | | medication use | +--------+---------+ + + + Social History [...] + + + | Blood Pressure | 120/80 | 02/03/2016 3:31 PM | | | | | PDT | | + + + + + | Pulse | 64 | 02/03/2016 3:31 PM | | | | | PDT | | + + + + + | Temperature | - | - | | + + + + + | Respiratory Rate | - | - | | + + + + + | Oxygen Saturation | 94% | 02/03/2016 3:31 PM | 1 L/M (Sitting) | | | | PDT | | + + + + + | Inhaled Oxygen | - | - | | | Concentration | | | | + + + + + | Weight | 94.4 kg (208 lb 1.6 | 02/03/2016 3:31 PM | | | | oz) | PDT | | + + + + + | Height | 149.9 cm (4' 11") | 02/03/2016 3:31 PM | | | | | PDT | | + + + + + | Body Mass Index | 42.03 | 02/03/2016 3:31 PM | | | | | PDT | | + + + + + documented in this encounter Patient Instructions Patient Instructions Vera Lainez MD - 02/03/2016 4:28 PM PDTThe 1500 feet of wa lking a day should be in addition to her regular walking, not including her routine activiti es. She can stop and rest or break it up in to smaller amounts throughout the day. Have heart ultrasound and blood draw in February. See Dr. Rivera in April, and then return here in May. documented in this encounter Progress Notes Vera Lainez MD - 02/03/2016 3:47 PM PDTFormatting of this note might be differe nt from the original. Pulmonary Follow Up HPI Margarita Rowley is a 50 y.o. female patient of VIKAS Galicia here today for follow up of primary pulmonary hypertension. At their last visit, we had continued her on her current regimen and had her increase her w alking. She is using a rolling griffin for her oxygen tank, which is working well for her for carrying the oxygen. Since their last visit she feels like she has been doing pretty well. She has quit smoking again. She has not had any acute illnesses. She is currently on a regimen of ambrisentan 10 mg daily, and tadalfil 40mg daily, and becl omethasone 80 mcg 1 puff inhaled twice daily, furosemide 80mg twice daily. She has not neede d her rescue inhaler at all She does feel like this medication regimen is working for them. She returns today for routine follow up. Currently she is able to walk at most 800 feet at her own pace on level ground. She is exer cising regularly. They make sure she walks at least 1500 feet daily. She is still eating a calorie controlled diet, and gets 2 free meals a month. She is not kasper ving any leg swelling. She has been evaluated for nocturnal oxygen and does use it. She is currently on 6 LPM at n ight with her VPAP at night. She reports good compliance. She has been evaluated for daytime oxygen and does use it. She is currently on 1 LPM at rest and 4LPM with exercise. Her next appointment with Dr. Rivera is scheduled for April. Past Medical History Past Medical History Diagnosis Date COPD (chronic obstructive pulmonary disease) (HCC) moderate, FEV1 1.40 (59%) Pulmonary hypertension (HCC) [...] Alcohol abuse Cocaine abuse Past Surgical History Past Surgical History Procedure Laterality Date Mouth surgery 2 teeth removed Cardiac catherization Social History: History Social History Marital Status: Single Spouse Name: N/A Number of Children: N/A Years of Education: N/A Occupational History Disabled. [employer] Social History Main Topics Smoking status: Former Smoker -- 1.00 packs/day for 20 years Types: Cigarettes Quit date: 12/15/2015 Smokeless tobacco: Never Used Alcohol Use: No Drug Use: No Sexual Activity: Not on file Other Topics Concern None Social History Narrative Lives at [facility]. Allergies: Allergies Allergen Reactions Erythromycin Other (See Comments) Metronidazole Other (See Comments) Penicillins Other (See Comments) Sulfa Antibiotics Other (See Comments) Medications: Outpatient Encounter Prescriptions as of 02/03/2016 Medication Sig Dispense Refill acetaminophen (MAPAP) 325 mg tablet Take 650 mg by mouth every 4 hours as needed. albuterol (VENTOLIN HFA) 90 mcg/puff inhaler Inhale 2 puffs into the lungs every 6 hour s as needed. ambrisentan (LETAIRIS) 10 MG tablet Take 10 mg by mouth Daily. [DISCONTINUED] antipyrine-benzocaine (AURALGAN) otic solution 3 drops every 2 hours as needed for Pain. ascorbic acid (VITAMIN C) 500 mg tablet Take 500 mg by mouth Daily. beclomethasone (QVAR) 80 mcg/puff inhaler Inhale 1 puff into the lungs 2 times daily. 1 Inhaler 5 buPROPion (WELLBUTRIN SR) 200 MG 12 hr tablet Take 200 mg by mouth Daily. [DISCONTINUED] buPROPion (WELLBUTRIN) 100 mg tablet Take 100 mg by mouth 2 times daily. cetirizine (ZYRTEC) 10 mg tablet Take 10 mg by mouth Daily. cholecalciferol (VITAMIN D-3) 2000 UNITS TABS Take 2,000 Units by mouth Daily. [place] Starch POWD by Does not apply route 2 times daily. [DISCONTINUED] divalproex (DEPAKOTE) 250 mg EC tablet Take 250 mg by mouth Daily. divalproex (DEPAKOTE) 500 mg EC tablet Take 500 mg by mouth 2 times daily. docusate sodium (COLACE) 50 MG capsule Take 50 mg by mouth 2 times daily. Elastic Bandages & Supports (MEDICAL COMPRESSION STOCKINGS) MISC by Does not apply rout e. furosemide (LASIX) 80 mg tablet Take 80 mg by mouth 2 times daily. gabapentin (NEURONTIN) 300 mg capsule Take 600 mg by mouth 3 times daily. [DISCONTINUED] levothyroxine (SYNTHROID, LEVOTHROID) 137 MCG tablet Take 175 mcg by hayden th every morning (before breakfast). levothyroxine (SYNTHROID, LEVOTHROID) 175 MCG tablet Take 175 mcg by mouth every mornin g (before breakfast). Magnesium Hydroxide (MILK OF MAGNESIA PO) Take 30 mLs by mouth as needed. meloxicam (MOBIC) 15 mg tablet Take 15 mg by mouth Daily. [DISCONTINUED] nicotine (NICODERM) 7 mg/[address] 7 mg onto the skin every 24 hours. [place]-3 Fatty Acids (SEA-OMEGA 30) 1200 MG CAPS Take by mouth. omeprazole (PRILOSEC) 20 mg capsule Take 20 mg by mouth every morning (before breakfast ). ondansetron (ZOFRAN ODT) 4 mg disintegrating tablet Take 4 mg by mouth every 8 hours as needed. oxygen Inhale 4 L into the lungs continuous. 1L at rest, 4L with exertion, 5L when asle ep. PARoxetine (PAXIL) 20 mg tablet Take 20 mg by mouth every morning. potassium chloride (K-DUR) 20 mEq tablet Take 20 mEq by mouth 2 times daily. Respiratory Therapy Supplies MISC Replacement CPAP supplies. Mask, head gear, chinstrap , hoses, humidifier chamber and filters. Lifetime. Dx: 327.23 1 each 0 Respiratory Therapy Supplies MISC Please contact Dr. Lainez's office if oxygen leve l drops below 88% more than 3 times during a 24 hours time period. 1 each 0 risperiDONE (RISPERDAL) 1 mg tablet Take 1 mg by mouth Daily. 5 simvastatin (ZOCOR) 20 mg tablet Take 20 mg by mouth nightly. sodium chloride (OCEAN) 0.65% nasal spray use as directed per package instructions as n eeded for congestion or dryness during the day. 1 Bottle PRN tadalafil (ADCIRCA) 20 mg tablet Take 2 tablets by mouth Daily. 60 tablet 5 triamcinolone (KENALOG) 0.1% cream Apply topically 2 times daily. [DISCONTINUED] trolamine salicylate (ASPERCREME) 10% cream Apply topically as needed. UNCODED MEDICATION Change pressure on BiPAP to 16/5 cm with backup of 8 and 5 L/min O2 bled into system. 1 Device 0 vitamin B-12 (CYANOCOBALAMIN) 1000 MCG tablet Take 1,000 mcg by mouth Daily. No facility-administered encounter medications on file as of 02/03/2016. Review of Systems: General: []Weight loss/gain (over 10 lbs) [x]Fever/chills/sweats []Night sweats EENT: []Hearing loss [x]Vision loss/change - "I had to get glasses" []Sinus congestion/nasal drainage []Nosebleeds []Hoarseness Cardiac: [x]Chest pain - "it gets tight" []Palpitations/heart racing []Swelling of legs/ankles []W aking up at night short of breath []Difficulty sleeping flat Gastrointestinal: [x]Nausea/vomiting []Difficulty swallowing []Heartburn/acid reflux []Loss of appetite []Ab dominal pain Urologic: []Blood in urine []Frequent urination at night []Burning/painful urination []Difficulty wit h urination Objective BP 120/80 mmHg | Pulse 64 | Ht 1.499 m (4' 11") | Wt 94.394 kg (208 lb 1.6 oz) | BMI 42.01 kg/m2 | SpO2 94% | ? No General Appearance: Alert, cooperative, no distress, appears stated age, on oxygen Head: Normocephalic, without obvious abnormality, atraumatic Eyes: PERRL, conjunctiva clear, no scleral icterus, EOM's intact Ears: Normal TM's, external auditory canals, normal acuity Nose: Nares normal, septum midline, mucosa normal Mouth: No oral lesions or exudate Neck: Supple, symmetrical, no adenopathy Lungs: No accessory muscle use, breath sounds are diminished bilaterally with some prolon gation of the expiratory phase, no wheezes, crackles or rhonchi Chest Wall: No deformity Heart: Regular rate and rhythm, soft murmur, rub or gallop Abdomen: Soft, non-tender, non-distended, mildly obese Extremities: No cyanosis, clubbing, or edema Pulses: Radial pulses 2+ and symmetric Skin: Warm and dry Lymph nodes: Cervical and supraclavicular nodes normal Data: The patient walked 213.3 meters in 6 minutes, stopping to rest 2 times. Their baseline oxyg en saturation was 95% on 4LPM of oxygen and baseline heart rate was 68 BPM. They desaturated to 92% with exertion, and their peak heart rate with exertion was 97 BPM. Ref. Range 01/02/2016 00:00 Preg Test, Ur Latest Ref Range: Negative Negative Immunization History Administered Date(s) Administered INFLUENZA, TRIVALENT PRESERVATIVE FREE (PED/ADOL/ADULT) 07/31/2013, 07/30/2015 PNEUMOCOCCAL POLYSACCHARIDE 23-VALENT (PPSV23) 03/12/2015 Assessment ICD-10-CM ICD-9-CM 1. Primary pulmonary hypertension (HCC) I27.0 416.0 Six minute walk test has doubled in 2 y ears, which is pretty good considering where we started. On tadalfil and ambrisentan. Appears euvolemic today. We will repeat echo and labs in February before her April appointment with Dr. Rivera. ECHO Complete * [facility] ([facility]) Pulmonary Function Testing - AMB Referral 2. Chronic obstructive pulmonary disease, unspecified COPD type (HCC) J44.9 496 On Qvar and stable. 3. GLORIA (obstructive sleep apnea) G47.33 327.23 On VPAP and follows with Dr. Ruelas. 4. Hypoxemia R09.02 799.02 On oxygen 1L at rest and 4L with exertion. 5. Sleep related hypoxia G47.34 327.24 On oxygen at 6L bled in to her VPAP. 6. High risk medication use Z79.899 V58.69 Doing monthly urine tests and we will repeat her CMP and CBC in February. Comprehensive Metabolic Panel CBC with Differential Plan 1.Continue on ambrisentan 10mg daily. 2.Continue on tadalafil 40mg daily. 3.Continue oxygen 6L at night, and 4L daytime with exertion, 1L at rest. 4. I asked them to increase her daily exercise to 1500 feet 6 days weekly not including her daily activity. 6. Check monthly urine tests. 7. Check CBC and CMP in February. 8. Continue on furosemide 80mg twice daily. 9. Check echocardiogram in February. 10. Followup appointment with Dr. Rivera in April. She was advised to call if new pulmonary symptoms were to develop. Return to clinic in May, or sooner with concerns. CC: VIKAS Galicia, Lashae Rivera MD Portions of this report were transcribed using voice recognition software. Every effort wa s made to ensure accuracy; however, inadvertent computerized delinquent tax collector assistant errors may be pre sent. documented in t his encounter Plan of Treatment +--------+---------+ + + + | Date | Type | Specialty | Care Team | Description | +--------+---------+ + + + | 04/16/ | Office | Pulmonology | Helen Astudillo | | | 2019 | Visit | | MD Vikash [address] | | | | | | [address] | | | | | | [place] [address] | | | | | | [phone] | | | | | | | | +--------+---------+ + + + | 04/30/ | Office | Sleep Medicine | Jacky Calderon PA | | | 2020 | Visit | | [address] | | | | | | [place] | | | | | | [address] | | | | | | | | +--------+---------+ + + + + + +--------+ + + | Name | Type | Priori | Associated Diagnoses | Order Schedule | | | | ty | | | + + +--------+ + + | ECHO Complete | Echocardiog | Routin | Primary pulmonary | Expected: | | | evgeny | e | hypertension (HCC) | 03/04/2016, Expires: | | | | | | 02/02/2017 | + + +--------+ + + | Comprehensive | Lab | Routin | High risk | Expected: | | Metabolic Panel | | e | medication use | 03/04/2016, Expires: | | | | | | 02/02/2017 | + + +--------+ + + | CBC with | Lab | Routin | High risk | Expected: | | Differential | | e | medication use | 03/04/2016, Expires: | | | | | | 02/02/2017 | + + +--------+ + + documented as of this encounter Procedures + +--------+ + + + | Procedure Name | Priori | Date/Time | Associated Diagnosis | Comments | | | ty | | | | + +--------+ + + + | ECHO-EXTERNAL SCAN | | 03/09/2016 | | Results for this | | | | 12:00 AM | | procedure are in the | | | | PDT | | results section. | + +--------+ + + + documented in this encounter Results ECHO-EXTERNAL SCAN (03/09/2016 12:00 AM PDT) + + + | Narrative | Performed At | + + + | Ordered by an | | | unspecified provider. 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
--- OUTSIDE RECORDS SUMMARY | ~2020-02-24 | XMS | Encounter Summary ---
Demographics + + + | Address | [address] | | | [place] [address] | + + + | Home Phone | | + + + | Preferred Language | Unknown | + + + | Marital Status | Single | + + + | Yazidi Affiliation | 1009 | + + + | Race | Unknown | + + + | Ethnic Group | Unknown | + + + Author + + + | Author | [facility] | | | and [place] | + + + | Organization | [facility] | | | and [place] | + + + | Address | Unknown | + + + | Phone | Unavailable | + + + Support + + + + + | Name | Relationship | Address | Phone | + + + + + | [employer] | ECON | [id number] | | | | | Unknown | | + + + + + Care Team Providers + +------+ + | Care Nail Professional Name | Role | Phone | + +------+ + | Gela Trimble ARBITRATOR | PCP | | + +------+ + [...] | Primary | [place], | [address] | | | | | pulmonary | Vera B, | [place], | | | | | hypertension | MD [address] | [place] | | | | | (HCC) | [address] | [address] | | | | | Procedures | [place], | Phone: | | | | | ECHO | [place] [address] | [phone] | | | | | Complete | | Fax: | | | | | APPT | | [phone] | | | | | 03/18/14. | | | | | | | DEFERRED T0 | | | | | | | 03/01/14 | | | +--------+--------+ + + + + Reason for Visit + + + | Reason | Comments | + + + | Follow-up | | + + + Encounter Details +--------+---------+ + + + | Date | Type | Department | Care Team | Description | +--------+---------+ + + + | 12/17/ | Office | [facility] | Fatou, | Primary pulmonary | | 2013 | Visit | PULMONARY [address] | Vera Farrar MD | hypertension | | | | [place], | | (Primary Dx); [place] | | | | [place] [address] | | (obstructive sleep | | | | [phone] | | apnea); COPD | | | | | | (chronic obstructive | | | | | | pulmonary disease); | | | | | | Hypoxemia; Tremor | +--------+---------+ + + + Social History [...] + + + | Blood Pressure | 118/62 | 12/17/2013 11:32 AM | | | | | PST | | + + + + + | Pulse | 77 | 12/17/2013 11:32 AM | | | | | PST | | + + + + + | Temperature | - | - | | + + + + + | Respiratory Rate | - | - | | + + + + + | Oxygen Saturation | 95% | 12/17/2013 11:32 AM | On 2L | | | | PST | | + + + + + | Inhaled Oxygen | - | - | | | Concentration | | | | + + + + + | Weight | 100.4 kg (221 lb 4.8 | 12/17/2013 11:32 AM | | | | oz) | PST | | + + + + + | Height | 149.9 cm (4' 11") | 12/17/2013 11:32 AM | | | | | PST | | + + + + + | Body Mass Index | 44.7 | 12/17/2013 11:32 AM | | | | | PST | | + + + + + documented in this encounter Patient Instructions Patient Instructions Vera Lainez MD - 12/17/2013 12:14 PM PSTContinue on oxygen 2L with exertion and at rest. Do not increase to 4L unless saturation drops below 89%. I would recommend neurology consult for the tremor. Heart ultrasound same day as next appointment. Follow up with Jacky Calderon and Dr. Ruelas for sleep study results/need for new PAP machine. E lectronically signed by Vera Lainez MD at 12/17/2013 12:23 PM PST documented in this encounter Progress Notes Vera Lainez MD - 12/17/2013 11:48 AM PSTFormatting of this note might be differe nt from the original. Pulmonary Follow Up MD [place] [facility] [place] [facility] [address] [place], [address] HPI Margarita Rowley is a 48 y.o. female patient of Gela Trimble here today for follow up of pulmonary hypertension. She did see Dr. Rivera since her last visit, and she continued the Letairus, and increased to 10mg daily. She started this around the beginning of August (September 07). Dr. Rivera re commended a repeat echocardiogram 6 months in to starting the medication. She has been following with Jacky in the sleep center, and her AHI has continued to remain e levated despite good compliance. Her leaks have been hit and miss, sometimes well controlled and sometimes quite high. She is wearing it and reports it is going okay. She does feel les s tired wearing her BiPAP. She had her repeat sleep study done Tuesday, reading is yet shay g. They note that [facility] will need an updated prescription for this when the new angel greenberg is required. She has continued to have a tremor. She did see her primary care provider, and apparently sotero shetty did not come to any conclusion. As far as they know, no neurology evaluation is pending. She walks every day at work, and walks about 150 feet there. She also walks to the restroom as well. She does some walking in the evening. She thinks she could walk a little further t mckeon the 150 feet she walks at work. She is wearing oxygen at 2L most of the time, but turns it up to 4L with exertion because s he feels short of breath. Today when she did her 6 minute walk, she desaturated from 97% to 95%. She walked 400 feet and stopped to rest twice. She does report she coughs, every day. She notes it can be any time. She is using the Qvar inhaler twice a day. They do not know how often she uses the albuterol. Past Medical History Past Medical History Diagnosis Date COPD (chronic obstructive pulmonary disease) (HCC) moderate, FEV1 1.40 (59%) Pulmonary hypertension (HCC) severe, class 1, class 2, class 3 Bipolar disorder (HCC) PTSD (post-traumatic stress disorder) Osteoarthritis Obstructive sleep apnea AHI 64.2 Vitamin D deficiency GERD (gastroesophageal reflux disease) Hypothyroidism Seizure disorder (HCC) Developmental delay Hypoxemia (HCC) on 2L at rest, 4L with exertion Female stress incontinence Pyelonephritis Hypertension Impulse control disorder Hyperlipidemia Obesity Alcohol abuse Cocaine abuse Past Surgical History Past Surgical History Procedure Date Mouth surgery 2 teeth removed Cardiac catherization Social History: History Social History Marital Status: Single Spouse Name: N/A Number of Children: N/A Years of Education: N/A Occupational History Disabled. [employer] Social History Main Topics Smoking status: Former Smoker -- 1.0 packs/day for 20 years Types: Cigarettes Quit date: 05/14/2013 Smokeless tobacco: None Alcohol Use: Yes Comment: history of abuse Drug Use: Yes Special: Cocaine Comment: history of cocaine use Sexually Active: None Other Topics Concern None Social History Narrative Lives at [facility] [place] [facility]. Allergies: Allergies Allergen Reactions Erythromycin Metronidazole Penicillins Sulfa Antibiotics Medications: Outpatient Encounter Prescriptions as of 12/17/2013 Medication Sig Dispense Refill acetaminophen (MAPAP) 325 mg tablet Take 650 mg by mouth every 4 hours as needed. albuterol (VENTOLIN HFA) 90 mcg/puff inhaler Inhale 2 puffs into the lungs every 6 hour s as needed. ambrisentan (LETAIRIS) 5 MG tablet Take 5 mg by mouth Daily. ascorbic acid (VITAMIN C) 500 mg tablet Take 500 mg by mouth Daily. beclomethasone (QVAR) 80 mcg/puff inhaler Inhale 1 puff into the lungs 2 times daily. 1 Inhaler 11 buPROPion (WELLBUTRIN) 100 mg tablet Take 100 mg by mouth 2 times daily. cetirizine (ZYRTEC) 10 mg tablet Take 10 mg by mouth Daily. cholecalciferol (VITAMIN D-3) 2000 UNITS TABS Take 2,000 Units by mouth Daily. [place] Starch POWD by Does not apply route 4 times daily. divalproex (DEPAKOTE) 250 mg EC tablet Take 250 mg by mouth Daily. divalproex (DEPAKOTE) 500 mg EC tablet Take 500 mg by mouth Daily. docusate sodium (COLACE) 50 MG capsule Take 50 mg by mouth 2 times daily. Elastic Bandages & Supports (MEDICAL COMPRESSION STOCKINGS) MISC by Does not apply rout e. furosemide (LASIX) 80 mg tablet Take 80 mg by mouth 2 times daily. gabapentin (NEURONTIN) 300 mg capsule Take 600 mg by mouth 3 times daily. [DISCONTINUED] HYDROcodone-acetaminophen (NORCO) 5-325 mg per tablet Take 1 tablet by m outh every 6 hours as needed. levothyroxine (SYNTHROID, LEVOTHROID) 137 MCG tablet Take 175 mcg by mouth every mornin g (before breakfast). Magnesium Hydroxide (MILK OF MAGNESIA PO) Take 30 mLs by mouth as needed. meloxicam (MOBIC) 15 mg tablet Take 15 mg by mouth Daily. [DISCONTINUED] nitrofurantoin (MACROBID) 100 mg capsule Take 100 mg by mouth 2 times da jammie. [place]-3 Fatty Acids (SEA-OMEGA 30) 1200 MG CAPS Take by mouth. omeprazole (PRILOSEC) 20 mg capsule Take 20 mg by mouth every morning (before breakfast ). ondansetron (ZOFRAN ODT) 4 mg disintegrating tablet Take 4 mg by mouth every 8 hours as needed. oxygen Inhale 2 L into the lungs continuous. 4 l when ambulating PARoxetine (PAXIL) 20 mg tablet Take 20 mg by mouth every morning. potassium chloride (K-DUR) 20 mEq tablet Take 20 mEq by mouth 2 times daily. Respiratory Therapy Supplies MISC BIPAP ST rate 8 cm H2O. IPAP 19/EPAP 5. O2 bleed in a t 2 l/m. Lifetime. Dx: 327.23 1 each 0 Respiratory Therapy Supplies MISC Please contact Dr. Lainez's office if oxygen leve l drops below 88% more than 3 times during a 24 hours time period. 1 each 0 risperiDONE (RISPERDAL) 4 MG tablet Take 4 mg by mouth Daily. simvastatin (ZOCOR) 20 mg tablet Take 20 mg by mouth nightly. trolamine salicylate (ASPERCREME) 10% cream Apply topically as needed. vitamin B-12 (CYANOCOBALAMIN) 1000 MCG tablet Take 1,000 mcg by mouth Daily. Review of Systems Constitutional: Denies fever, sweats, and change in weight. Occasional chills. Sleep: Using BiPAP, AHI is high. Some days is less tired. Eyes: Denies eye irritation. Occasional blurry vision. ENT: Denies earache, decreased hearing, nasal congestion, nosebleeds, sore throat, and sandra rseness. Had nosebleeds, resolved. Resp: See HPI. CV: Denies chest pain, palpitations, syncope, and peripheral edema. Has palpitations. GI: Denies nausea, vomiting, and abdominal pain. : Denies difficulty emptying bladder. Neuro: Has a persistent tremor, the same at rest and with activity. Notes occasional leg st iffness. Objective BP 118/62 | Pulse 77 | Ht 1.499 m (4' 11") | Wt 100.381 kg (221 lb 4.8 oz) | BMI 44.70 kg/m 2 | SpO2 95% 2L General Appearance: Alert, cooperative, no distress, appears stated age, wheelchair bound and on oxygen Head: Normocephalic, without obvious abnormality, atraumatic Eyes: PERRL, conjunctiva clear, no scleral icterus, EOM's intact Ears: Normal TM's, external auditory canals, normal acuity Nose: Nares normal, septum midline, mucosa normal Mouth: No oral lesions or exudate Neck: Supple, symmetrical, no adenopathy Lungs: No accessory muscle use, breath sounds are diminished bilaterally, no wheezes, leather craftsman ckles or rhonchi Chest Wall: No deformity Heart: Regular rate and rhythm, no murmur, rub or gallop Abdomen: Soft, non-tender, non-distended, obese Extremities: No cyanosis, clubbing, significantly decreased edema Pulses: Radial pulses 2+ and symmetric Skin: Warm and dry, facial flushing noted Lymph nodes: Cervical and supraclavicular nodes normal Neuro: Tremor noted at rest and with intention, continued with squeezing my hand Data: 6 minute walk was done prior to clinic today and was reviewed and interpreted in clinic tocarlin sarkar. The patient walked 121 meters in 6 minutes. The baseline oxygen saturation was 95% and h eart rate was 77. The lowest oxygen saturation was 95% (increased to 97% with exertion) and heart rate increased to 98. VPAP Data: Dates: 10/21/13-11/19/13 [employer]: [facility] Machine type: Respironics BiPAP auto IPAP Pressure: 19 cm H2O EPAP Pressure: 5.0 cm H2O AHI: 66.4 Total number of days: 30 Number of days used: 29 Median daily usage: 6:22 hours Percent of days used for more than 4 hours: 93.3 % Average % of night in large leak: 10% Rhoda Rivera's notes were reviewed in clinic today. Immunization History Administered Date(s) Administered INFLUENZA, PRESERVATIVE FREE IM 07/31/2013 Assessment 1. Primary pulmonary hypertension - On Letairis. I suspect she has had a significant decrea se in her pulmonary pressures given decrease in O2 needs and increase in walking ability. We will repeat her echocardiogram same day as next appointment in 3 months and forward results to Dr. Rivera (she can also review in Care Everywhere). 2. GLORIA (obstructive sleep apnea) - On BiPAP with poor control. Repeat sleep study done last week, results are pending. She is following with Dr. Ruelas and Jacky in the sleep center due to complex issues with mask fit, issues with adjusting machine with the [employer] and with her AHI remaining high despite adjustments. 3. COPD (chronic obstructive pulmonary disease) - On Qvar. She may benefit from a long acti ng bronchodilator, however this is the lessor of my concerns, and in light of her tremor, I will hold off to not further confuse things until this has been clarified. 4. Hypoxemia - Improved significantly. She has been increasing her oxygen to 4L despite goo d saturations. We discussed the risks of hypercapnia. ABG checked a few months ago and indic ated this was not the case. 5. Tremor - Etiology is not clear, but has Parkinsonian features. Apparently it is not asso ciated with Letairis, and did not develop with starting this or with the dose change. I seda mmended a neurology evaluation, especially in light of her use of dopaminergic agents and hi story of neurological issues. Plan 1.Continue Letairis. 2.Continue oxygen 2L with exertion and rest for now. Do not increase to 4L unless oxygen dr ops below 89%. 3.Repeat echocardiogram with next appointment in 3 months. 4. Changes to BiPAP machine will be made by Jacky and Dr. Ruelas when results of sleep study are available. 5. I will look at adding a long acting bronchodilator once some of her other issues have be en clarified. She was advised to call if new pulmonary symptoms were to develop. Return to clinic in 3 months, or sooner with concerns. CC: Gela Trimble NP, Lashae Rivera MD, YUMIKO Rivers Portions of this report were transcribed using voice recognition software. Every effort wa s made to ensure accuracy; however, inadvertent computerized retort furnace operator errors may be pre sent. documented in t his encounter Plan of Treatment +--------+---------+ + + + | Date | Type | Specialty | Care Team | Description | +--------+---------+ + + + | 04/16/ | Office | Pulmonology | Helen Astudillo | | | 2019 | Visit | | MD Vikash [address] | | | | | | [address] | | | | | | [place] [address] | | | | | | [phone] | | | | | | | | +--------+---------+ + + + | 04/30/ | Office | Sleep Medicine | Jacky Calderon PA | | | 2019 | Visit | | [address] | | | | | | [place] | | | | | | [address] | | | | | | | | +--------+---------+ + + + documented as of this encounter Results ECHO Complete (03/12/2014 8:36 AM PDT) + + | Specimen | + + | | + + + + + | Narrative | Performed At | + + + | ECHOCARDIOGRAM REPORT | [place] | | STUDY DATE: 03/12/2014 PATIENT NAME: Margarita Rowley : | [facility] | | 1965 PCP: Gela Trimble [facility] | | HISTORY/DIAGNOSIS: PULM HTN A [...] | | S. Ananth Salguero MD PhD [facility] 03/12/2014 8:38 | | | Cable Technician: Hung Caro, JUANITOCS, RVT, RDMS | | + + + + + | Procedure Note | + + | Roberto Salguero MD - 03/12/2014 6:[address] [facility] | | CENTERECHOCARDIOGRAM REPORTSTUDY DATE: 03/12/2014PATIENT NAME: Margarita Vora: | | 1965MRN: [id number]: Gela TrimbleCLINICAL HISTORY/DIAGNOSIS: PULM HTNA | | transthoracic echocardiogram [...] | mmHgLA volume: 34 mLLA index: 18 mL/[id number] Inflow DT: 290 msIVRT: 117 msValsalva: | | YES, TO NO EFFECTPWDTI S wave: 12.0 cm/sPWDTI E wave: 15.5 cm/sPWDTI A wave: 24.1 | | cm/sE/A Ratio: 0.643E/E Ratio: Signed by: Artie Salguero MD PhD [facility] 03/12/2014 | | 8:38 Cable Technician: Hung Caro, RDCS, RVT, RDMS | |Mitral [...] | | | | | |Signed by: rAtie Salguero MD PhD [facility] | | 03/12/2014 8:38 | | | | | |Cable Technician: Hung Caro, JUANITOCS, RVT, RDMS | + + + + + + + | Performing | Address | City/State/Zipcode | Phone Number | | Organization | | | | + + + + + | [facility] | [address] | [place], [place] | [phone] | | [facility] | | [address] | | | - IMAGING | | | | + + + + + documented in this encounter Visit Diagnoses + + | Diagnosis | + + | Primary pulmonary hypertension - Primary | + + | GLORIA (obstructive sleep apnea) Obstructive sleep apnea (adult) (pediatric) | + + | COPD (chronic obstructive pulmonary disease) Chronic airway obstruction, not | | elsewhere classified | + + | Hypoxemia | + + | Tremor Abnormal involuntary movements | + + documented in this encounter
--- OUTSIDE RECORDS SUMMARY | ~2020-02-24 | XMS | Encounter Summary ---
Demographics + + + | Address | [address] | | | [place] [address] | + + + | Home Phone | | + + + | Preferred Language | Unknown | + + + | Marital Status | Single | + + + | Episcopalian Affiliation | 1009 | + + + | Race | Unknown | + + + | Ethnic Group | Unknown | + + + Author + + + | Author | [facility] | | | and [place] | + + + | Organization | [facility] | | | and [place] | + + + | Address | Unknown | + + + | Phone | Unavailable | + + + Support + + + + + | Name | Relationship | Address | Phone | + + + + + | [employer] | ECON | [id number] | | | | | Unknown | | + + + + + Care Team Providers + +------+ + | Care Menhaden Fishing Crew Member Name | Role | Phone | + +------+ + | Yuni Shrestha | PCP | | + +------+ + Encounter Details +--------+ + + + + | Date | Type | Department | Care Team | Description | +--------+ + + + + | 02/01/ | [facility] | [facility] | Scout Arthur, | Lung nodule | | 2017 | Encounter | MED CTR XRAY [address] | | | | | [place] | [place] [address] | | | | | [place] [address] | [phone] | | | | | [phone] | | | +--------+ + + + [...] + + + +---------+ + + | aspirin | Take 81 mg by mouth | | 0 | 12/28/19 | | | (ASPIR-LOW) 81 MG EC | Daily. | | | 17 | | | tablet | | | | | | + + + +---------+ + + | buPROPion | Take 200 mg by mouth | | 0 | | | | (WELLBUTRIN SR) 200 | Daily. | | | | | | MG 12 hr tablet | [...] + + + +---------+ + + | fish oil 1,000 mg | Take 1,000 mg by | | 12 | 01/26/20 | | | capsule | mouth 2 times daily. | | | 17 | | + + + +---------+ + [...] + + + +---------+ + + | tadalafil | Take 2 tablets by | 60 | 5 | 01/19/20 | | | (ADCIRCA) 20 mg | mouth Daily. | tablet | | 16 | | | tablet | | | | | | + + + +---------+ + + | Trospium Chloride | Take 60 mg by mouth | | 3 | 01/26/20 | | | 60 MG CP24 | Daily. | | | 17 | | + + + +---------+ + [...] Inhale 1 puff into | 1 | 5 | 12/22/19 | | | (QVAR) 80 mcg/puff | the lungs 2 times | Inhaler | | 16 | 9 | | inhaler | daily. | | | | | + + + +---------+ + + | [place] Starch POWD | by Does not apply | | 0 | | | | | route 2 times daily. | | | | 9 | + + + +---------+ + + | Cranberry 500 MG | Take 1 tablet by | | 0 | | | | CHEW | mouth Daily. | | | | 9 | + + + +---------+ + + | docusate sodium | Take 50 mg by mouth | | 0 | | | | (COLACE) 50 MG | Daily. | | | | 8 | | capsule | | | | | | + + + +---------+ + + | levothyroxine | Take 150 mcg by | | 3 | 01/16/20 | | | (SYNTHROID, | mouth every morning | | | 17 | 9 | | LEVOTHROID) 150 mcg | (before breakfast). | | | | | | tablet | | | | | | + + + +---------+ + + | omeprazole | TAKE ONE CAPSULE BY | 60 | 10 | 09/19/20 | | | (PRILOSEC) 20 mg | MOUTH TWICE A DAY | capsule | | 16 | 7 | | capsule | FOR ANTACID | | | | | + + [...] + + + +---------+ + + | triamcinolone | Apply topically | | 0 | | | | (KENALOG) 0.1% cream | Twice daily as | | | | 9 | | | needed. | | | | | [...] | | | | | [place] [address] | | | | | | [phone] | | | | | | | | +--------+---------+ + + + | 04/30/ | Office | Sleep Medicine | Jacky Calderon PA | | | 2019 | Visit | | [address] | | | | | | [place] | | | | | | [address] | | | | | | | | +--------+---------+ + + + documented as of this encounter Procedures + +--------+ + + + | Procedure Name | Priori | Date/Time | Associated Diagnosis | Comments | | | ty | | | | + +--------+ + + + | XR CHEST PA AND | Routin | 02/01/2017 | Lung nodule | Results for this | | LATERAL | e | 11:13 AM | | procedure are in the | | | | PDT | | results section. | + +--------+ + + + documented in this encounter Results XR Chest PA and Lateral (02/01/2017 11:13 AM PDT) + + | Specimen | + + | | + + + + + | Narrative | Performed At | + + + | CLINICAL INFORMATION: Nodular density, solitary pulmonary nodule | [facility] | | COMPARISON: 07/10/2015. FINDINGS: Frontal and lateral views of | [facility] | | the chest. Lungs: No focal airspace disease, pleural effusion, or | MEDICAL [facility]ENTER | | pneumothorax. Heart: Cardiac silhouette is of normal size. | - IMAGING | | Mediastinum: Central pulmonary vasculature has a normal appearance. | | | IMPRESSION - Normal 2 view chest. If there is concern for a | | | pulmonary lesion, then consider CT of the chest for further | | | assessment. Dictated and Signed by: Jose Mills MD | | | Electronically signed: 02/01/2017 1:46 PM | | + + + + + | Procedure Note | + + | Andrade, Rad Results In - 02/01/2017 1:49 PM PDT CLINICAL INFORMATION: Nodular density, | | solitary pulmonary noduleCOMPARISON: 07/10/2015.FINDINGS: Frontal and lateral views of | | the chest. Lungs: No focal airspace disease, pleural effusion, or pneumothorax. Heart: | | Cardiac silhouette is of normal size.Mediastinum: Central pulmonary vasculature has a | | normal appearance.IMPRESSION - Normal 2 view chest. If there is concern for a pulmonary | | lesion,then consider CT of the chest for further assessment.Dictated and Signed by: | | Jose Mills MD Electronically signed: 02/01/2017 1:46 PM | |Lungs: No focal airspace disease, pleural effusion, or pneumothorax. | | | |Heart: Cardiac silhouette is of normal size. | | | |Mediastinum: Central pulmonary vasculature has a normal appearance. | | | | | |IMPRESSION - Normal 2 view chest. If there is concern for a pulmonary lesion, | |then consider CT of the chest for further assessment. | | | |Dictated and Signed by: Jose Mills MD | | Electronically signed: 02/01/2017 1:46 PM | + + + + + + + | Performing | Address | City/State/Zipcode | Phone Number | | Organization | | | | + + + + + | [facility] | [address] | [place] | [phone] | | [facility] | | [address] | | | - IMAGING | | | | + + + + + documented in this encounter Visit Diagnoses + + | Diagnosis | + + | Lung nodule Solitary pulmonary nodule | + + documented in this encounter"
--- OUTSIDE RECORDS SUMMARY | ~2020-02-24 | XMS | Encounter Summary ---
Demographics + + + | Address | [address] | | | [place] [address] | + + + | Home Phone | | + + + | Preferred Language | Unknown | + + + | Marital Status | Single | + + + | Jewish Affiliation | 1009 | + + + | Race | Unknown | + + + | Ethnic Group | Unknown | + + + Author + + + | Author | [facility] | | | and [place] | + + + | Organization | [facility] | | | and [place] | + + + | Address | Unknown | + + + | Phone | Unavailable | + + + Support + + + + + | Name | Relationship | Address | Phone | + + + + + | [employer] | ECON | [phone] | | | | | Unknown | | + + + + + Care Team Providers + +------+ + | Care Transition Specialist Name | Role | Phone | + [...] | Primary | [place], | [address] | | | | | pulmonary | Vera B, | [place], | | | | | hypertension | MD [address] | [place] | | | | | ([facility]) | [address] | [address] | | | | | Procedures | [place], | Phone: | | | | | ECHO | [place] [address] | [phone] | | | | | Complete [place] | | Fax: | | | | | ECHO HEART | | [phone] | | | | | XTHORACIC,[place] | | | | | | | MPLETE W | | | | | | | DOPPLER [place] | | | | | | | ECHO HEART | | | | | | | XTHORACIC,CO | | | | | | | MPLETE, W/O | | | | | | | DOPPLER | | | +--------+--------+ + + + + Reason for Visit +--------+ + | Reason | Comments | +--------+ + | Other | f/u Primary pulmonary hypertension | +--------+ + Encounter Details +--------+---------+ + + + | Date | Type | Department | Care Team | Description | +--------+---------+ + + + | 06/12/ | Office | [facility] [place] | [place], | Primary pulmonary | | 2015 | Visit | PULMONARY [address] | Vera Farrar MD | hypertension (HCC); | | | | [address] [place], | | GLORIA (obstructive | | | | [place] [address] | | sleep apnea); COPD | | | | [phone] | | (chronic obstructive | | | | | | pulmonary disease); | | | | | | Hypoxemia; Tobacco | | | | | | use disorder; High | | | | | | risk medication use | +--------+---------+ + + + [...] + + + | Blood Pressure | 128/70 | 06/12/2015 9:49 AM | | | | | PDT | | + + + + + | Pulse | 70 | 06/12/2015 9:49 AM | | | | | PDT | | + + + + + | Temperature | - | - | | + + + + + | Respiratory Rate | 16 | 06/12/2015 9:49 AM | | | | | PDT | | + + + + + | Oxygen Saturation | 92% | 06/12/2015 9:49 AM | room air | | | | PDT | | + + + + + | Inhaled Oxygen | - | - | | | Concentration | | | | + + + + + | Weight | 93.4 kg (205 lb 12.8 | 06/12/2015 9:49 AM | | | | oz) | PDT | | + + + + + | Height | 149.9 cm (4' 11.02") | 06/12/2015 9:49 AM | | | | | PDT | | + + + + + | Body Mass Index | 41.54 | 06/12/2015 9:49 AM | | | | | PDT | | + + + + + documented in this encounter Patient Instructions Patient Instructions Vera Lainez MD - 06/12/2015 11:15 AM PDTUse oxygen 1LPM at rest and 4LPM with exertion. None of the other oxygen monitoring parameters or orders change on the protocol. Continue to walk 1200 feet 6 days per week. If she needs to stop and rest during this, that is fine, but please make sure she is doing the entire 1200 feet regularly. Please take her to [facility] monthly for urine tests. Get the printed lab slip fr om here today to take to them. Have heart ultrasound here in July. documented in this encounter Progress Notes Vera Lainez MD - 06/12/2015 10:43 AM PDTFormatting of this note might be differe nt from the original. Pulmonary Follow Up HPI Margarita Rowley is a 49 y.o. female patient of VIKAS Galicia here today for follow up of primary pulmonary hypertension. At their last visit, we had liberalized her dietary sodium, and fluid restrictions some, wh ile increasing her walking. We rechecked her echocardiogram, which looked somewhat worse. Th howard made her follow up with Dr. Rivera. I ordered a repeat ambulating oximetry for this appoi ntment and asked them to check her oxygen level when walking at home and noted she had to us e it with walking if she was going below 89%. Today she is really tired. She has not walked in 2 1/2 weeks. She had shingles a while back and so was contagious and she had to stay home. She had a recurrence of what was thought to be shingles, and so had to stay home again. Given this her activity level has been down. On days that she works, she does do the 1200 feet of walking (actually it sounds like she has been walking less), but on days when she did not work, she has not been walking. She now fee ls like she can walk less, and finds herself getting short of breath when walking. She has been wearing her oxygen with walking, except out to the back patio where she has be en smoking, about 9 cigarettes a day. She has been planning to quit, but notes she has been saying this for some time. She has a nicotine patch available, but has not been using it. She is currently on a regimen of Letairis 10mg daily and furosemide 80mg twice daily. She h as not had any leg swelling. She has not been waking up at night short of breath. She return s today for routine follow up. Currently she is able to walk 500 feet at her own pace on level ground. She is not exercisi ng regularly. She has been wearing her BiPAP at night every night. She has not been taking her BiPAP off at night. She has a 5LPM oxygen bleed in. She has not been using oxygen at rest and then 4L with exertion. Today she was 88% at rest and then needed 4L with exertion. Her current diet is 2 gram sodium, 1500 calories per day, 2.5mL fluid restriction, 2 free m eals per month. Past Medical History Past Medical History Diagnosis Date COPD (chronic obstructive pulmonary disease) ([facility]) moderate, FEV1 1.40 (59%) Pulmonary hypertension ([facility]) severe, class 1, class 2, class 3 Bipolar disorder ([facility]) PTSD (post-traumatic stress disorder) Osteoarthritis Obstructive sleep apnea AHI 64.2 Vitamin D deficiency GERD (gastroesophageal reflux disease) Hypothyroidism Seizure disorder ([facility]) Developmental delay Hypoxemia on 2L at rest, 4L with exertion Female stress incontinence Pyelonephritis Hypertension Impulse control disorder Hyperlipidemia Obesity Alcohol abuse Cocaine abuse Past Surgical History Past Surgical History Procedure Laterality Date Mouth surgery 2 teeth removed Cardiac catherization Social History: History Social History Marital Status: Single Spouse Name: N/A Number of Children: N/A Years of Education: N/A Occupational History Disabled. [employer] Social History Main Topics Smoking status: Current Some Day Smoker -- 1.00 packs/day for 20 years Types: Cigarettes Last Attempt to Quit: 12/10/2014 Smokeless tobacco: None Comment: restarted in August 2014, quit again 12/10/14, resumed a few cigarettes again Alcohol Use: Yes Comment: history of abuse Drug Use: Yes Special: Cocaine Comment: history of cocaine use Sexual Activity: None Other Topics Concern None Social History Narrative Lives at [facility]. Allergies: Allergies Allergen Reactions Erythromycin Metronidazole Penicillins Sulfa Antibiotics Medications: Outpatient Encounter Prescriptions as of 06/12/2015 Medication Sig Dispense Refill acetaminophen (MAPAP) 325 mg tablet Take 650 mg by mouth every 4 hours as needed. albuterol (VENTOLIN HFA) 90 mcg/puff inhaler Inhale 2 puffs into the lungs every 6 hour s as needed. ambrisentan (LETAIRIS) 10 MG tablet Take 10 mg by mouth Daily. antipyrine-benzocaine (AURALGAN) otic solution 3 drops every 2 hours as needed for Pain . ascorbic acid (VITAMIN C) 500 mg tablet [...] TABS Take 2,000 Units by mouth Daily. [place] Starch POWD by Does not apply route 2 times daily. divalproex (DEPAKOTE) 250 mg EC [...] 600 mg by mouth 3 times daily. levothyroxine (SYNTHROID, LEVOTHROID) 137 MCG tablet Take 175 mcg by mouth every mornin g (before breakfast). Magnesium Hydroxide (MILK OF MAGNESIA PO) Take 30 mLs by mouth as needed. meloxicam (MOBIC) 15 mg tablet Take 15 mg by mouth Daily. nicotine (NICODERM) 7 mg/[address] 7 mg onto the skin every 24 hours. Allen-3 Fatty Acids (SEA-OMEGA 30) 1200 MG CAPS Take by mouth. omeprazole (PRILOSEC) 20 mg capsule Take 20 mg by mouth every morning (before breakfast ). ondansetron (ZOFRAN ODT) 4 mg disintegrating tablet Take 4 mg by mouth every 8 hours as needed. oxygen Inhale 4 L into the lungs continuous. None at rest, 4L with exertion, 5L when as leep. PARoxetine (PAXIL) 20 mg tablet Take 20 [...] dryness during the day. 1 Bottle PRN trolamine salicylate (ASPERCREME) 10% cream Apply topically as needed. UNCODED MEDICATION Change pressure on BiPAP to 16/5 cm with backup of 8 and 5 L/min O2 bled into system. 1 Device 0 vitamin B-12 (CYANOCOBALAMIN) 1000 MCG tablet Take 1,000 mcg by mouth Daily. No facility-administered encounter medications on file as of 06/12/2015. Review of Systems: General: []Weight loss/gain (over 10 lbs) []Fever/chills/sweats []Night sweats EENT: []Hearing loss []Vision loss/change []Sinus congestion/nasal drainage []Nosebleeds [] Hoarseness Cardiac: []Chest pain [x]Palpitations/heart racing []Swelling of legs/ankles []Waking up at night short of breath []Difficulty sleeping flat Gastrointestinal: []Nausea/vomiting []Difficulty swallowing []Heartburn/acid reflux []Loss of appetite []Abd ominal pain Urologic: []Blood in urine []Frequent urination at night []Burning/painful urination []Difficulty wit h urination Objective BP 128/70 mmHg | Pulse 70 | Resp 16 | Ht 1.499 m (4' 11.02") | Wt 93.35 kg (205 lb 12.8 oz) | BMI 41.54 kg/m2 | SpO2 92% RA General Appearance: Alert, cooperative, no distress, appears stated age Head: Normocephalic, without obvious abnormality, atraumatic Eyes: PERRL, conjunctiva clear, no scleral icterus, EOM's intact Ears: Normal TM's, external auditory canals, normal acuity Nose: Nares normal, septum midline, mucosa edematous Mouth: No oral lesions or exudate Neck: Supple, symmetrical, no adenopathy Lungs: No accessory muscle use, breath sounds are slightly diminished bilaterally with so me prolongation of the expiratory phase, no wheezes, crackles or rhonchi Chest Wall: No deformity Heart: Regular rate and rhythm, no murmur, rub or gallop Abdomen: Soft, non-tender, non-distended, mildly obese Extremities: No cyanosis, clubbing, or edema Pulses: Radial pulses 2+ and symmetric Skin: Warm and dry Lymph nodes: Cervical and supraclavicular nodes normal Data: Ambulating oximetry was done prior to clinic today and was reviewed and interpreted in clin ic today. It shows she required 4 L to keep her saturation more than 89 %. Echocardiogram was performed on March 26, 2015 and results were reviewed in clinic today. 1. Normal left ventricular size, wall thickness and motion. Preserved left ventricular systolic function. LVEF is 60-65%. Paradoxical septal motion. 2. Grade 1 left ventricular diastole dysfunction. 3. Moderate pulmonary hypertension with a peak systolic pressure of 65-70 mmHg. 4. Trace mitral valve regurgitation. 5. Mild to moderate tricuspid valve regurgitation. 6. Normal IVC with normal respiratory collapse. Lashae Rivera's notes were reviewed in clinic today. Immunization History Administered Date(s) Administered INFLUENZA, TRIVALENT PRESERVATIVE FREE (PED/ADOL/ADULT) 07/31/2013, 08/11/2014 PNEUMOCOCCAL POLYSACCHARIDE 23-VALENT (PPSV23) 03/12/2015 Assessment ICD-9-CM 1. Primary pulmonary hypertension (HCC) 416.0 On Letairis and furosemide. Appears euvolemic today despite some dietary liberalization. She has taken some back steps due to oxygen non compliance, lack of exercise. Her pulmonary pressures were worse on recent echo. I emphasized need to do walking even if not going to work or if she needs a break partway t hrough. We will continue current plan, recheck echo in July and have a follow up in July. ECHO Complete 2. GLORIA (obstructive sleep apnea) 327.23 On BPAP and following in the sleep center with Dr. Ruelas. 3. COPD (chronic obstructive pulmonary disease) 496 On Qvar and albuterol. Has resumed smok ing, and is aware of need to quit. 4. Hypoxemia 799.02 Slightly worse oxygenation, likely related to lack of use and associate d increase in pulmonary pressures, as well as tobacco use. She is now complying with oxygen. 5. Tobacco use disorder 305.1 Ongoing. She is interested in quitting, but will not make the commitment to quitting to start on a nicotine replacement product, which she has available. I offered nicotine gum, but only if she commits to quitting so she does not inadvertently u se both. 6. High risk medication use V58.69 On Letairis and requires monthly HCG testing. I ordered this with a standing order, provided the lab slip and asked her caregivers to take her to [facility] in [place] monthly to have this done. HCG, Urine, Qual Plan 1.Continue on Letairis 10mg daily, furosemide 80mg twice daily. 2.Smoking cessation encouraged. 3.Oxygen 1L at rest, 4L with exertion, 5L with sleep bled in to PAP machine. 4. Continue 2 gram sodium, 1500 calories per day, 2.5mL fluid restriction, 2 free meals per month diet. 5. Emphasized need to do regular walking 1200 feet 6 times weekly. 6. Continue Qvar and albuterol. 7. Repeat echocardiogram in July. 8. Monthly urine HCG testing ordered and lab slip given to take to [facility]. She was advised to call if new pulmonary symptoms were to develop. Return to clinic in July, or sooner with concerns. CC: VIKAS Galicia, Lashae Rivera MD Portions of this report were transcribed using voice recognition software. Every effort wa s made to ensure accuracy; however, inadvertent computerized out and out cigar maker hand errors may be pre sent. documented in t his encounter Plan of Treatment +--------+---------+ + + + | Date | Type | Specialty | Care Team | Description | +--------+---------+ + + + | 04/16/ | Office | Pulmonology | Helen Astudillo | | | 2019 | Visit | | MD Vikash [address] | | | | | | [address] | | | | | | [place] [address] | | | | | | [phone] | | | | | | | | +--------+---------+ + + + | 04/30/ | Office | Sleep Medicine | Jacky Calderon PA | | | 2019 | Visit | | [address] | | | | | | [place] | | | | | | [id number] | | | | | | | | +--------+---------+ + + + + + +--------+ + + | Name | Type | Priori | Associated Diagnoses | Order Schedule | | | | ty | | | + + +--------+ + + | HCG, Urine, Qual | Lab | Routin | High risk | monthly for 12 | | | | e | medication use | Occurrences starting | | | | | | 06/12/2015 until | | | | | | 06/12/2016 | + + +--------+ + + | ECHO Complete | Echocardiog | Routin | Primary pulmonary | Expected: | | | evgeny | e | hypertension (HCC) | 07/13/2015, Expires: | | | | | | 06/11/2016 | + + +--------+ + + documented as of this encounter Visit Diagnoses + + | Diagnosis | + + | Primary pulmonary hypertension (HCC) Primary pulmonary hypertension | + + | GLORIA (obstructive sleep apnea) Obstructive sleep apnea (adult) (pediatric) | + + | COPD (chronic obstructive pulmonary disease) Chronic airway obstruction, not | | elsewhere classified | + + | Hypoxemia | + + | Tobacco use disorder | + + | High risk medication use Encounter for long-term (current) use of other medications | + + documented in this encounter
--- OUTSIDE RECORDS SUMMARY | ~2020-02-24 | XMS | Encounter Summary ---
Demographics + + + | Address | [address] | | | [place] [address] | + + + | Home Phone | | + + + | Preferred Language | Unknown | + + + | Marital Status | Single | + + + | Anglican Affiliation | 1009 | + + + | Race | Unknown | + + + | Ethnic Group | Unknown | + + + Author + + + | Author | [facility] | | | and [place] | + + + | Organization | [facility] | | | and [place] | + + + | Address | Unknown | + + + | Phone | Unavailable | + + + Support + + + + + | Name | Relationship | Address | Phone | + + + + + | [employer] | ECON | [phone] | | | | | Unknown | | + + + + + Care Team Providers + +------+ + | Care Furnace Repair Mechanic Name | Role | Phone | + [...] | sleep apnea); | | | | [place], | | Hypoxemia | | | | [place] [address] | | | | | | [phone] | | | +--------+ + + + [...] | | | | | [place] [address] | | | | | | [phone] | | | | | | | | +--------+---------+ + + + | 04/30/ | Office | Sleep Medicine | Jacky Calderon PA | | | 2019 | Visit | | [address] | | | | | | [place] | | | | | | [phone] | | | | | | | | +--------+---------+ + + + documented as of this encounter Visit Diagnoses + + | Diagnosis | + + | GLORIA (obstructive sleep apnea) Obstructive sleep apnea (adult) (pediatric) | + + | Hypoxemia | + + documented in this encounter"
--- OUTSIDE RECORDS SUMMARY | ~2020-02-24 | XMS | Encounter Summary ---
Demographics + + + | Address | [address] | | | [place] [address] | + + + | Home Phone | | + + + | Preferred Language | Unknown | + + + | Marital Status | Single | + + + | Nondenominational Affiliation | 1009 | + + + | Race | Unknown | + + + | Ethnic Group | Unknown | + + + Author + + + | Author | [facility] | | | and [place] | + + + | Organization | [facility] | | | and [place] | + + + | Address | Unknown | + + + | Phone | Unavailable | + + + Support + + + + + | Name | Relationship | Address | Phone | + + + + + | [employer] | ECON | [phone] | | | | | Unknown | | + + + + + Care Team Providers + +------+ + | Care Insurance Instructor Name | Role | Phone | + +------+ + | Gela Trimble NP | PCP | | + +------+ + Reason for Visit +--------+ + | Reason | Comments | +--------+ + | Apnea | | +--------+ + Encounter Details +--------+---------+ + + + | Date | Type | Department | Care Team | Description | +--------+---------+ + + + | 05/21/ | Office | [facility] | Jacky Calderon PA | Primary central | | 2014 | Visit | SLEEP DISORDER [address] | [address] | sleep apnea (Primary | | | | [address] | [place], [place] | Dx) | | | | [place] [address] | [address] | | | | | [phone] | | | +--------+---------+ + + + [...] this encounter Last Filed Vital Signs + +---------+ + + | Vital Sign | Reading | Time Taken | Comments | + +---------+ + + | Blood Pressure | 108/62 | 05/21/2014 3:19 PM | | | | | PDT | | + +---------+ + + | Pulse | 67 | 05/21/2014 3:19 PM | | | | | PDT | | + +---------+ + + | Temperature | - | - | | + +---------+ + + | Respiratory Rate | 16 | 05/21/2014 3:19 PM | | | | | PDT | | + +---------+ + + | Oxygen Saturation | 93% | 05/21/2014 3:19 PM | | | | | PDT | | + +---------+ + + | Inhaled Oxygen | - | - | | | Concentration | | | | + +---------+ + + | Weight | - | - | | + +---------+ + + | Height | - | - | | + +---------+ + + | Body Mass Index | - | - | | + +---------+ + + documented in this encounter Progress Notes Jacky Calderon PA - 05/21/2014 3:20 PM PDT Subjective: Patient ID: Margarita Rowley is a 48 y.o. female. HPI last office visit was: 01/23/2014 date of polysomnography: 03/13/2013 at [facility] AHI: 64.2 O2%: n/a Machine type: Respironics BiPAP Auto with ResHandpay Quattro FX full face mask obtained from: [facility] pressure: 16/5 cm with backup rate of 8 bpm and O2 at 5 L/min Nights using BiPAP: 118/118 average usage (all nights): 7:45 average usage (nights used): 7:45 AHI: 7.7 Jessie comes in for BiPAP compliance. She is doing well with her pressure adjustment to 16/5 with a backup of 8 and oxygen at 5 L/min bled into the circuitry. She is sleeping better a nd has more energy since the pressure adjustment. She does not have any questions or concer ns. I have discussed the download in detail. This shows that her sleep apnea is controlled, wi th an AHI of 7.7. It also shows that her leaks are controlled. Review of Systems Objective: Physical Exam Assessment: Problem #1: CENTRAL SLEEP APNEA (327.21) This is controlled with BiPAP at the adjusted pressures. Her compliance is going very well . Plan: She is to continue with BiPAP indefinitely. I have recommended that she replace her cushio n for her full face mask and touch base with her medical supplier twice per year to ensure t hat her equipment is satisfactory. I will follow up with her in 1 year, sooner prn. Fifteen minutes were spent [id number], with the majority of time spent in [...] | | | | | [place] [address] | | | | | | [phone] | | | | | | | | +--------+---------+ + + + | 04/30/ | Office | Sleep Medicine | Jacky Calderon PA | | | 2019 | Visit | | [address] | | | | | | [place] | | | | | | [phone] | | | | | | | | +--------+---------+ + + + documented as of this encounter Visit Diagnoses + + | Diagnosis | + + | Primary central sleep apnea - Primary | + + documented in this encounter"
--- OUTSIDE RECORDS SUMMARY | ~2020-02-24 | XMS | Encounter Summary ---
Demographics + + + | Address | [address] | | | [place] [address] | + + + | Home Phone | | + + + | Preferred Language | Unknown | + + + | Marital Status | Single | + + + | Zoroastrian Affiliation | 1009 | + + + | Race | Unknown | + + + | Ethnic Group | Unknown | + + + Author + + + | Author | [facility] | | | and [place] | + + + | Organization | [facility] | | | and [place] | + + + | Address | Unknown | + + + | Phone | Unavailable | + + + Support + + + + + | Name | Relationship | Address | Phone | + + + + + | [employer] | ECON | [id number] | | | | | Unknown | | + + + + + Care Team Providers + +------+ + | Care Autism Specialist Name | Role | Phone | + +------+ + PCP | Unavailable | + +------+ + Encounter Details +--------+ + + + + | Date | Type | Department | Care Team | Description | +--------+ + + + + | 12/12/ | Hospital | [facility] | | | 2008 | Encounter | [facility] XRAY [address] | [address] | | | | | [address] | [place], [place] | | | | | [place] | [address] | | | | | [address] | [phone] | | | | | [phone] | | | +--------+ + + + [...] | | | | | [place] [address] | | | | | | [phone] | | | | | | | | +--------+---------+ + + + | 04/30/ | Office | Sleep Medicine | Jacky Calderon PA | | | 2020 | Visit | | [address] | | | | | | [place] | | | | | | [address] | | | | | | | | +--------+---------+ + + + documented as of this encounter Visit Diagnoses Not on filedocumented in this encounter"
--- OUTSIDE RECORDS SUMMARY | ~2020-02-24 | XMS | Encounter Summary ---
Demographics + + + | Address | [address] | | | [place] [address] | + + + | Home Phone | | + + + | Preferred Language | Unknown | + + + | Marital Status | Single | + + + | Sikh Affiliation | 1009 | + + + | Race | Unknown | + + + | Ethnic Group | Unknown | + + + Author + + + | Author | [facility] | | | and [place] | + + + | Organization | [facility] | | | and [place] | + + + | Address | Unknown | + + + | Phone | Unavailable | + + + Support + + + + + | Name | Relationship | Address | Phone | + + + + + | [employer] | ECON | [id number] | | | | | Unknown | | + + + + + Care Team Providers + +------+ + | Care Repairing Calibrator Name | Role | Phone | + +------+ + PCP | Unavailable | + +------+ + Encounter Details +--------+ + + + + | Date | Type | Department | Care Team | Description | +--------+ + + + + | 02/28/ | Hospital | [facility] | [place] [place] | | | 2011 | Encounter | [facility] GENERIC OP | [address] | | | | | CONVERSION | [address] | | | | | [address]PART[address] | [place] | | | | | [place] | [address] | | | | | [place] | [phone] | | | | | [address] | | | | | | [phone] | | | +--------+ + + + [...] | | | | | [place] [address] | | | | | | [phone] | | | | | | | | +--------+---------+ + + + | 04/30/ | Office | Sleep Medicine | Jacky Calderon PA | | | 2019 | Visit | | [address] | | | | | | [place] | | | | | | [phone] | | | | | | | | +--------+---------+ + + + documented as of this encounter Visit Diagnoses Not on filedocumented in this encounter"
--- OUTSIDE RECORDS SUMMARY | ~2020-02-24 | XMS | Encounter Summary ---
Demographics + + + | Address | [address] | | | [place] [address] | + + + | Home Phone | | + + + | Preferred Language | Unknown | + + + | Marital Status | Single | + + + | Sikh Affiliation | 1009 | + + + | Race | Unknown | + + + | Ethnic Group | Unknown | + + + Author + + + | Author | [facility] | | | and [place] | + + + | Organization | [facility] | | | and [place] | + + + | Address | Unknown | + + + | Phone | Unavailable | + + + Support + + + + + | Name | Relationship | Address | Phone | + + + + + | [employer] | ECON | [phone] | | | | | Unknown | | + + + + + Care Team Providers + +------+ + | Care Machine Installer Name | Role | Phone | + +------+ + | Gela Trimble HOSTING ENGINEER | PCP | | + +------+ + [...] | Primary | [place], | [address] | | | | | pulmonary | Vera B, | [place], | | | | | hypertension | MD [address] | [place] | | | | | (HCC) | [address] | [address] | | | | | Procedures | [place], | Phone: | | | | | ECHO | [place] [id number] | [phone] | | | | | Complete | | Fax: | | | | | APPT | | [phone] | | | | | 03/18/14. | [...] + + | 12/17/ | Office | [facility] | [place], | Primary pulmonary | | 2013 | Visit | PULMONARY [address] | Vera Farrar MD | hypertension | | | | [address] [place], | | (Primary Dx); [place] | | | | [place] [address] | | (obstructive sleep | | | | [phone] | | apnea); COPD | | | [...] [place] [facility] [place] [address] [place], [address] HPI Margarita Rowley is a 48 y.o. [...] sleep study done Tuesday, reading is yet hsay g. They note that In Home Medical [...] Years of Education: N/A Occupational History Disabled. [employer] Social History Main Topics Smoking status: Former Smoker -- 1.0 packs/day for 20 years Types: Cigarettes Quit date: 05/14/2013 Smokeless tobacco: None Alcohol Use: Yes Comment: history of abuse Drug Use: Yes Special: Cocaine Comment: history of cocaine use Sexually Active: None Other Topics Concern None Social History Narrative Lives at [facility]. Allergies: Allergies Allergen Reactions Erythromycin Metronidazole Penicillins [...] TABS Take 2,000 Units by mouth Daily. [place] Starch POWD by Does not apply route [...] mg by mouth 2 times da jammie. Simpson-3 Fatty Acids (SEA-OMEGA 30) 1200 MG CAPS [...] breath sounds are diminished bilaterally, no wheezes, fur scraper ckles or rhonchi Chest Wall: No deformity [...] increased to 98. VPAP Data: Dates: 10/21/13-11/19/13 [employer] Company: In Home Medical Machine type: Respironics [...] fit, issues with adjusting machine with the Mobile Ads and with her AHI remaining high despite [...] made to ensure accuracy; however, inadvertent computerized vender errors may be pre sent. documented in t his encounter Plan of Treatment +--------+---------+ + + + | Date | Type | Specialty | Care Team | Description | +--------+---------+ + + + | 04/16/ | Office | Pulmonology | Heeln Astudillo | | | 2019 | Visit | | MD Vikash [address] | | | | | | [address] [place] | | | | | | [place] [address] | | | | | | [phone] | | | | | | | | +--------+---------+ + + + | 04/30/ | Office | Sleep Medicine | Jacky Calderon PA | | | 2019 | Visit | | [address] | | | | | | [place] | | | | | | [address] | | | | | | | | +--------+---------+ + + + documented as of this encounter Results ECHO Complete (03/12/2014 8:36 AM PDT) + + | Specimen | + + | | + + + + + | Narrative | Performed At | + + + | [facility] ECHOCARDIOGRAM REPORT | [place] | | STUDY DATE: 03/12/2014 PATIENT NAME: Margarita Rowley : | [facility] | | 1965 PCP: Gela Trimble CLINICAL [facility] | | HISTORY/DIAGNOSIS: PULM HTN A transthoracic [...] | | S. Ananth Salguero MD PhD [facility] 03/12/2014 8:38 | | | Surgical Endoscopist: Hung Caro, JUANITOCS, RVT, RDMS | | + + + + + | Procedure Note | + + | Roberto aSlguero MD - 03/12/2014 6:05 PM [facility] | | CENTERECHOCARDIOGRAM REPORTSTUDY DATE: 03/12/2014PATIENT NAME: Margarita Vora: | | 1965MRN: [id number]: Gela TrimbleCLINICAL HISTORY/DIAGNOSIS: PULM HTNA | | [...] | mmHgLA volume: 34 mLLA index: 18 mL/q3Twxdhf Inflow DT: 290 msIVRT: 117 msValsalva: | | YES, TO NO EFFECTPWDTI S wave: 12.0 cm/sPWDTI E wave: 15.5 cm/sPWDTI A wave: 24.1 | | cm/sE/A Ratio: 0.643E/E Ratio: Signed by: Artie Salguero MD PhD [facility] 03/12/2014 | | 8:38 Surgical Endoscopist: Hung Caro, RDCS, RVT, RDMS | |Mitral [...] | |Signed by: Artie Salguero MD PhD [facility] | | 03/12/2014 8:38 | | | | | |Surgical Endoscopist: Hung Caro, JUANITOCS, RVT, RDMS | + + + + + + + | Performing | Address | City/State/Zipcode | Phone Number | | Organization | | | | + + + + + | [facility] | [address] | [place], [place] | [phone] | | [facility] | | [address] | | | - IMAGING | | [...]
--- OUTSIDE RECORDS SUMMARY | ~2020-02-24 | XMS | Encounter Summary ---
Demographics + + + | Address | [address] | | | [place] [address] | + + + | Home Phone | | + + + | Preferred Language | Unknown | + + + | Marital Status | Single | + + + | Hoahaoism Affiliation | 1009 | + + + | Race | Unknown | + + + | Ethnic Group | Unknown | + + + Author + + + | Author | [facility] | | | and [place] | + + + | Organization | [facility] | | | and [place] | + + + | Address | Unknown | + + + | Phone | Unavailable | + + + Support + + + + + | Name | Relationship | Address | Phone | + + + + + | [employer] | ECON | [id number] | | | | | Unknown | | + + + + + Care Team Providers + +------+ + | Care Community Theater Actor Name | Role | Phone | + +------+ + PCP | Unavailable | + +------+ + Encounter Details +--------+ + + + + | Date | Type | Department | Care Team | Description | +--------+ + + + + | 04/11/ | [facility] | KRUNAL FOX | Edwar Taveras | | | 2011 | Encounter | HOSPITAL EMERGENCY | MD [address] | | | | | CENTER [address] | [facility] | | | | | [address] [place] | [place] [address] | | | | | [address] | [phone] | | | | | [phone] | | | +--------+ + + + [...] | | | | | [place] [address] | | | | | | [phone] | | | | | | | | +--------+---------+ + + + | 04/30/ | Office | Sleep Medicine | Jacky Calderon PA | | | 2020 | Visit | | [address] | | | | | | [place] | | | | | | [address] | | | | | | | | +--------+---------+ + + + documented as of this encounter Visit Diagnoses Not on filedocumented in this encounter"
--- OUTSIDE RECORDS SUMMARY | ~2020-02-24 | XMS | Encounter Summary ---
Demographics + + + | Address | [address] | | | [place] [address] | + + + | Home Phone | | + + + | Preferred Language | Unknown | + + + | Marital Status | Single | + + + | Synagogue Affiliation | 1009 | + + + | Race | Unknown | + + + | Ethnic Group | Unknown | + + + Author + + + | Author | [facility] | | | and [place] | + + + | Organization | [facility] | | | and [place] | + + + | Address | Unknown | + + + | Phone | Unavailable | + + + Support + + + + + | Name | Relationship | Address | Phone | + + + + + | [employer] | ECON | [phone] | | | | | Unknown | | + + + + + Care Team Providers + +------+ + | Care Accounts Collector Name | Role | Phone | + +------+ + | Gela Trimble NP | PCP | | + +------+ + Encounter Details +--------+ + + + + | Date | Type | Department | Care Team | Description | +--------+ + + + + | 09/11/ | Hospital | [facility] | [place], | Primary pulmonary | | 2013 | Encounter | MED CTR PULMONARY | Vera Farrar MD | hypertension; COPD | | | | FUNCTION [address] | | (chronic obstructive | | | | [place], | | pulmonary disease); | | | | [place] [address] | | Hypoxemia | | | | [phone] | | | +--------+ + + + [...] | | | | | | | ([facility]) | | | | | | + + + +---------+ + + | buPROPion | Take 100 mg by mouth | | 0 | | | | (WELLBUTRIN) 100 mg | 2 times daily. | | | | 6 | | tablet | | | | | | + + + +---------+ + + | [place] Starch POWD | by Does not apply [...] + + + +---------+ + + | [place]-3 Fatty | Take by mouth. | | [...] | | | | | [place] [address] | | | | | | [phone] | | | | | | | | +--------+---------+ + + + | 04/30/ | Office | Sleep Medicine | Jacky Calderon PA | | | 2019 | Visit | | [address] | | | | | | [place] | | | | | | [address] | | | | | | | | +--------+---------+ + + + documented as of this encounter Procedures + +--------+ + + + | Procedure Name | Priori | Date/Time | Associated Diagnosis | Comments | | | ty | | | | + +--------+ + + + | PFT PULMONARY | BHAVIN | 09/11/2014 | Primary pulmonary | | | FUNCTION TESTING | | 9:22 AM | hypertension COPD | | | ORDERS | | PST | (chronic obstructive | | | | | | pulmonary disease) | | | | | | Hypoxemia | | + +--------+ + + + | DIAGNOSTIC REPORT - | | 09/11/2014 | | | | EXTERNAL SCAN | | 12:00 AM | | | | | | PST | | | + +--------+ + + + | DIAGNOSTIC REPORT - | | 09/11/2014 | | | | EXTERNAL SCAN | | 12:00 AM | | | | | | PST | | | + +--------+ + + + documented in this encounter Visit Diagnoses + + | Diagnosis | + + | Primary pulmonary hypertension | + + | COPD (chronic obstructive pulmonary disease) Chronic airway obstruction, not | | elsewhere classified | + + | Hypoxemia | + + documented in this encounter"
--- OUTSIDE RECORDS SUMMARY | ~2020-02-24 | XMS | Encounter Summary ---
Demographics + + + | Address | [address] | | | [place] [address] | + + + | Home Phone | | + + + | Preferred Language | Unknown | + + + | Marital Status | Single | + + + | Cheondoism Affiliation | 1009 | + + + | Race | Unknown | + + + | Ethnic Group | Unknown | + + + Author + + + | Author | [facility] | | | and [place] | + + + | Organization | [facility] | | | and [place] | + + + | Address | Unknown | + + + | Phone | Unavailable | + + + Support + + + + + | Name | Relationship | Address | Phone | + + + + + | [employer] | ECON | [phone] | | | | | Unknown | | + + + + + Care Team Providers + +------+ + | Care Cardiovascular Disease Specialist Name | Role | Phone | + +------+ + | Shanice Huang MD | PCP | | + +------+ + Reason for Visit + + + | Reason | Comments | + + + | Medication Refill | | + + + Encounter Details +--------+--------+ + + + | Date | Type | Department | Care Team | Description | +--------+--------+ + + + | 07/29/ | Refill | [facility] [place] | [place], | Medication Refill | | 2017 | | GASTROENTEROLOGY | Varsha RACK WORKER [address] | | | | | [address] [place] | [place], [place] [address] | | | | | [address] [place], [place] | [place], [place] | | | | | [address] | [address] | | | | | [phone] | | | +--------+--------+ + + + Social History + + [...] | | | | | [place] [address] | | | | | | [phone] | | | | | | | | +--------+---------+ + + + | 04/30/ | Office | Sleep Medicine | Jacky Calderon PA | | | 2020 | Visit | | [address] | | | | | | [place] | | | | | | [address] | | | | | | | | +--------+---------+ + + + documented as of this encounter Visit Diagnoses Not on filedocumented in this encounter"
--- OUTSIDE RECORDS SUMMARY | ~2020-02-24 | XMS | Encounter Summary ---
Demographics + + + | Address | [address] | | | [place] [address] | + + + | Home Phone | | + + + | Preferred Language | Unknown | + + + | Marital Status | Single | + + + | Yarsani Affiliation | 1009 | + + + | Race | Unknown | + + + | Ethnic Group | Unknown | + + + Author + + + | Author | [facility] | | | and [place] | + + + | Organization | [facility] | | | and [place] | + + + | Address | Unknown | + + + | Phone | Unavailable | + + + Support + + + + + | Name | Relationship | Address | Phone | + + + + + | [employer] | ECON | [phone] | | | | | Unknown | | + + + + + Care Team Providers + +------+ + | Care Director Of Ancillary Services Name | Role | Phone | + [...] Description | +--------+--------+ + + + | 09/17/ | Refill | [facility] [place] | [place], | Medication Refill | | 2015 | | GASTROENTEROLOGY | Varsha MIS SPECIALIST [address] | | | | | [address] [place] | [place], [place] [address] | | | | | [address] [place], [place] | [place], [place] | | | | | [address] | [address] | | | | | [phone] | | | +--------+--------+ + + + [...] | | | | | [place] [address] | | | | | | [phone] | | | | | | | [...]
--- OUTSIDE RECORDS SUMMARY | ~2020-02-24 | XMS | Encounter Summary ---
Demographics + + + | Address | [address] | | | [place] [address] | + + + | Home Phone [...] + + + | Author | [facility] | | | and [place] | + + + | Organization | [facility] | | | and [place] | + + + | Address | Unknown | + + + | Phone | Unavailable | + + + Support + + + + + | Name | Relationship | Address | Phone | + + + + + | [employer] | ECON | [phone] | | | | | Unknown | | + + + + + Care Team Providers + +------+ + | Care Benefits Clerk Name | Role | Phone | + +------+ + | Yuni Shrestha | PCP | | + +------+ + Encounter Details +--------+ + + + + | Date | Type | Department | Care Team | Description | +--------+ + + + + | 01/11/ | Abstract | [facility] [place] | [place], | | | 2016 | | PULMONARY [address] | Vera Farrar MD | | | | | [place], | | | | | | [place] [address] | | | | | | [phone] | | | +--------+ + + + [...] | | | | | [place] [address] | | | | | | [phone] | | | | | | | | +--------+---------+ + + + | 04/30/ | Office | Sleep Medicine | Jacky Calderon PA | | | 2020 | Visit | | [address] | | | | | | [place] | | | | | | [address] | | | | | | | | +--------+---------+ + + + documented as of this encounter Procedures + +--------+ + + + | Procedure Name | Priori | Date/Time | Associated Diagnosis | Comments | | | ty | | | | + +--------+ + + + | HCG, URINE, QUAL | Routin | 01/02/2016 | | Results for this | | | e | | | procedure are in the | | | | | | results section. | + +--------+ + + + documented in this encounter Results , Urine, Qual (01/02/2016) + + + + + + | Component | Value | Ref Range | Performed | Pathologist | | | | | At | Signature | + + + + + + | | Negative | Negative | [facility] | | | Test, | | | [facility] | | | Urine, POC | | | [facility] | | | | | | [facility] - | | | | | | LABORATORY | | + + + + + + + + | Specimen | + + | Urine specimen | | (specimen) | + + + + + + + | Performing | Address | City/State/Zipcode | Phone Number | | Organization | | | | + + + + + | [facility]A [facility]. | [address] | [place] | [phone] | | [facility] | | [address] | | | - LABORATORY | | | | + + + + + documented in this encounter Visit Diagnoses Not on filedocumented in this encounter"
--- OUTSIDE RECORDS SUMMARY | ~2020-02-24 | XMS | Encounter Summary ---
Demographics + + + | Address | [address] | | | [place] [address] | + + + | Home Phone [...] | [facility] | | | and [place] | + + + | Address | Unknown | + + + | Phone | Unavailable | + + + Support + + + + + | Name | Relationship | Address | Phone | + + + + + | [employer] | ECON | [phone] | | | | | Unknown | | + + + + + Care Team Providers + +------+ + | Care Leasing Machine Tender Name | Role | Phone | + +------+ + | Gela Trimble NP | PCP | | + +------+ + Reason for Visit +--------+ + | Reason | Comments | +--------+ + | Other | | +--------+ + Encounter Details +--------+ + + + + | Date | Type | Department | Care Team | Description | +--------+ + + + + | 01/07/ | Telephone | [facility] [place] | [place], | Other | | 2014 | | PULMONARY [address] | Vera Farrar MD | | | | | [place], | | | | | | [place] [address] | | | | | | [phone] | | | +--------+ + + + [...] | | | | | [place] [address] | | | | | | [phone] | | | | | | | | +--------+---------+ + + + | 04/30/ | Office | Sleep Medicine | Jacky Calderon PA | | | 2019 | Visit | | [address] | | | | | | [place] | | | | | | [address] | | | | | | | | +--------+---------+ + + + documented as of this encounter Visit Diagnoses Not on filedocumented in this encounter"
--- OUTSIDE RECORDS SUMMARY | ~2020-02-24 | XMS | Encounter Summary ---
Demographics + + + | Address | [address] | | | [place] [address] | + + + | Home Phone | | + + + | Preferred Language | Unknown | + + + | Marital Status | Single | + + + | Hinduism Affiliation | 1009 | + + + | Race | Unknown | + + + | Ethnic Group | Unknown | + + + Author + + + | Author | [facility] | | | and [place] | + + + | Organization | [facility] | | | and [place] | + + + | Address | Unknown | + + + | Phone | Unavailable | + + + Support + + + + + | Name | Relationship | Address | Phone | + + + + + | [employer] | ECON | [phone] | | | | | Unknown | | + + + + + Care Team Providers + +------+ + | Care Respite Care Provider Name | Role | Phone | + [...] MD | oximetry) | | | | [place], | | | | | | [place] [address] | | | | | | [phone] | | | +--------+ + + + [...] | | | | | [place] [address] | | | | | | [phone] | | | | | | | | +--------+---------+ + + + | 04/30/ | Office | Sleep Medicine | Jacky Calderon PA | | | 2019 | Visit | | [address] | | | | | | [place] | | | | | | [address] | | | | | | | [...]
--- OUTSIDE RECORDS SUMMARY | ~2020-02-24 | XMS | Encounter Summary ---
Demographics + + + | Address | [address] | | | [place] [address] | + + + | Home Phone | | + + + | Preferred Language | Unknown | + + + | Marital Status | Single | + + + | Hoahaoism Affiliation | NRP | + + + | Race | White | + + + | Ethnic Group | Not or | + + + Author + + + | Author | [facility] | + + + | Organization | [facility] | + + + | Address | Unknown | + + + | Phone | Unavailable | + + + Support + + +---------+ + | Name | Relationship | Address | Phone | + + +---------+ + | Lidia Thibodeaux | ECON | Unknown | | + + +---------+ + Care Team Providers + +------+ + | Care Outpatient Admitting Clerk Name | Role | Phone | + +------+ + | Gela Trimble SAFETY AND SKILL BASED PAY MANAGER | PCP | | + +------+ + Encounter Details +--------+ + + + + | Date | Type | Department | Care Team | Description | +--------+ + + + + | 05/17/ | [facility] | Pulmonary & | Alexander Hays MD | Pulmonary | | 2012 | | Critical Care | [address] | hypertension (HCC) | | | | Medicine at | [facility], | (Primary Dx) | | | | [facility] | [place] [address] | | | | | [address] | [phone] | | | | | [facility] | | | | | | Pavilion, 3rd Floor | | | | | | [place], [place] | | | | | | [address] | | | | | | [phone] | | | +--------+ + + + [...]
--- OUTSIDE RECORDS SUMMARY | ~2020-02-24 | XMS | Encounter Summary ---
Demographics + + + | Address | [address] | | | [place] [address] | + + + | Home Phone | | + + + | Preferred Language | Unknown | + + + | Marital Status | Single | + + + | Mormon Affiliation | 1009 | + + + | Race | Unknown | + + + | Ethnic Group | Unknown | + + + Author + + + | Author | [facility] | | | and [place] | + + + | Organization | [facility] | | | and [place] | + + + | Address | Unknown | + + + | Phone | Unavailable | + + + Support + + + + + | Name | Relationship | Address | Phone | + + + + + | [employer] | ECON | [phone] | | | | | Unknown | | + + + + + Care Team Providers + +------+ + | Care Corner Cutter Name | Role | Phone | + [...] | RN | | | | | [place], | | | | | | [place] [address] | | | | | | [phone] | | | +--------+ + + + [...] | | | | | [place] [address] | | | | | | [phone] | | | | | | | | +--------+---------+ + + + | 04/30/ | Office | Sleep Medicine | Jacky Calderon PA | | | 2019 | Visit | | [address] | | | | | | [place] | | | | | | [address] | | | | | | | | +--------+---------+ + + + documented as of this encounter Visit Diagnoses Not on filedocumented in this encounter"
--- OUTSIDE RECORDS SUMMARY | ~2020-02-24 | XMS | Encounter Summary ---
Demographics + + + | Address | [address] | | | [place] [address] | + + + | Home Phone [...] + + + | Author | [facility] | | | and [place] | + + + | Organization | [facility] | | | and [place] | + + + | Address | Unknown | + + + | Phone | Unavailable | + + + Support + + + + + | Name | Relationship | Address | Phone | + + + + + | [employer] | ECON | [phone] | | | | | Unknown | | + + + + + Care Team Providers + +------+ + | Care Courtroom Deputy Name | Role | Phone | + +------+ + | Gela Trimble NP | PCP | | + +------+ + Reason for Visit +--------+ + | Reason | Comments | +--------+ + | Other | BIPAP order | +--------+ + Encounter Details +--------+ + + + + | Date | Type | Department | Care Team | Description | +--------+ + + + + | 08/13/ | Telephone | [facility] [place] | Tarah Nino, | Other (BIPAP order) | | 2012 | | PULMONARY [address] | RN | | | | | [place], | | | | | | [place] [address] | | | | | | [phone] | | | +--------+ + + + [...] | | | | | [place] [address] | | | | | | [phone] | | | | | | | | +--------+---------+ + + + | 04/30/ | Office | Sleep Medicine | Jacky Calderon PA | | | 2019 | Visit | | [address] | | | | | | [place] | | | | | | [address] | | | | | | | | +--------+---------+ + + + documented as of this encounter Visit Diagnoses + + | Diagnosis | + + | Obstructive sleep apnea (adult) (pediatric) - Primary | + + documented in this encounter"
--- OUTSIDE RECORDS SUMMARY | ~2020-02-24 | XMS | Encounter Summary ---
Demographics + + + | Address | [address] | | | [place] [address] | + + + | Home Phone [...] + + + | Author | [facility] | | | and [place] | + + + | Organization | [facility] | | | and [place] | + + + | Address | Unknown | + + + | Phone | Unavailable | + + + Support + + + + + | Name | Relationship | Address | Phone | + + + + + | [employer] | ECON | [phone] | | | | | Unknown | | + + + + + Care Team Providers + +------+ + | Care Fitness Worker Name | Role | Phone | [...] RN | obstructive | | | | [place], | | pulmonary disease) | | | | [place] [address] | | (HCC) | | | | [phone] | | | +--------+ + + + [...] | | | | | [place] [address] | | | | | | [phone] | | | | | | | | +--------+---------+ + + + | 04/30/ | Office | Sleep Medicine | Jacky Calderon PA | | | 2019 | Visit | | [address] | | | | | | [place] | | | | | | [address] | | | | | | | | +--------+---------+ + + + documented as of this encounter Visit Diagnoses + + | Diagnosis | + + | COPD (chronic obstructive pulmonary disease) (HCC) Chronic airway obstruction, not | | elsewhere classified | + + documented in this encounter"
--- OUTSIDE RECORDS SUMMARY | ~2020-02-24 | XMS | Encounter Summary ---
Demographics + + + | Address | [address] | | | [place] [address] | + + + | Home Phone [...] Author + + + | Author | [facility] | | | and [place] | + + + | Organization | [facility] | | | and [place] | + + + | Address | Unknown | + + + | Phone | Unavailable | + + + Support + + + + + | Name | Relationship | Address | Phone | + + + + + | Projects [employer] | ECON | [id number] | | | | | Unknown | | + + + + + Care Team Providers + +------+ + | Care Business Development Director Name | Role | Phone | + +------+ + PCP | Unavailable | + +------+ + Encounter Details +--------+ + + + + | Date | Type | Department | Care Team | Description | +--------+ + + + + | 01/16/ | Hospital | [facility] | Anabella Michel | | | 2009 | Encounter | H[facility] XRAY [address] | | | | | [address] | [place] [address] | | | | | [place] | [phone] | | | | | [address] | | | | | | [phone] | Shady Mcdonald | | | | | | MD [address] | | | | | | [place], [place] | | | | | | [address] | | | | | | [phone] | | | | | | | [...] | | | | | [place] [address] | | | | | | [phone] | | | | | | | | +--------+---------+ + + + | 04/30/ | Office | Sleep Medicine | Jacky Calderon PA | | 2019 | Visit | | [address] | | | | | | [place] | | | | | | [address] | | | | | | | | +--------+---------+ + + + documented as of this encounter Visit Diagnoses Not on filedocumented in this encounter"
--- OUTSIDE RECORDS SUMMARY | ~2020-02-24 | XMS | Encounter Summary ---
Demographics + + + | Address | [address] | | | [place] [address] | + + + | Home Phone [...] | Organization | [facility] | | | and [place] | + + + | Address | Unknown | + + + | Phone | Unavailable | + + + Support + + + + + | Name | Relationship | Address | Phone | + + + + + | [employer] | ECON | [id number] | | | | | Unknown | | + + + + + Care Team Providers + +------+ + | Care Lead Java Software Engineer Name | Role | Phone | + +------+ + | Yuni Shrestha | PCP | | + +------+ + Reason for Visit Evaluate & Treat (Routine) +--------+--------+ + + + + | Status | Reason | Specialty | Diagnoses / | Referred By | Referred To | | | | | Procedures | Contact | Contact | +--------+--------+ + + + + | Closed | | Pulmonology | Diagnoses | Fady, | Jerson, | | | | | Chronic | Yuni Schafer, | Scout Mistry MD | | | | | obstructive | 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 [address] | [address] | | | | | pulmonary | [address] | [place], [place] | | | | | disease, | [place], | [address] | | | | | unspecified | [place] [address] | Phone: | | | | | (HCC) | Phone: | [phone] | | | | | Procedures | [phone] | Fax: | | | | | F/U APPT DR | Fax: | [phone] | | | | | SCOUT | [phone] | | | | | | JERSON | | | | | | | 02/21/18 | | | +--------+--------+ + + + + Encounter Details +--------+---------+ + + + | Date | Type | Department | Care Team | Description | +--------+---------+ + + + | 02/21/ | Office | [facility] | Scout Arthur, | Pulmonary | | 2018 | Visit | PULMONARY [address] | MD [address] | hypertension, | | | | [place], | [place] [address] | unspecified (HCC) | | | | [place] [address] | [phone] | (Primary Dx) | | | | [phone] | | | +--------+---------+ + + + [...] + + + | Blood Pressure | 110/84 | 02/21/2018 10:41 AM | | | | | PDT | | + + + + + | Pulse | 72 | 02/21/2018 10:41 AM | | | | | PDT | | + + + + + | Temperature | - | - | | + + + + + | Respiratory Rate | - | - | | + + + + + | Oxygen Saturation | 92% | 02/21/2018 10:41 AM | 1 L/M | | | | PDT | | + + + + + | Inhaled Oxygen | - | - | | | Concentration | | | | + + + + + | Weight | 82.9 kg (182 lb 12.2 | 02/21/2018 10:41 AM | | | | oz) | PDT | | + + + + + | Height | 149.9 cm (4' 11") | 02/21/2018 10:41 AM | | | | | PDT | | + + + + + | Body Mass Index | 36.91 | 02/21/2018 10:41 AM | | | | | PDT | | + + + + + documented in this encounter Progress Notes Scout Arthur MD - 02/21/2018 11:00 AM PDT52 year old ex-smoker with pulmonary hypertension reasonably compensated on treatment I saw her a year ago. She had been diagnosed prior to that at [facility] in [place] by Dr. Lashae Rivera whose excellent notes helped me figure out what was going on. The pat brijesh had a prior history of some methamphetamine. She was on supplementary oxygen 24 hours and ambrisentan 10 and tadalafil 40 every day. She was also taking Lasix 80 mg daily and us ing BiPAP. She was in an assisted living place and avoiding sodium and fluid was restricted to 2500 mL daily. She was having popping feelings occasionally on her forehead. Today the situation is to same. She still has these popping feelings, pointing to her temp les, certainly not all the time, but they heard a little bit. She is had them for quite a l leigha time and they are probably related to the tadalafil, which is described as making people s heads feel heavy; it is a vasodilator. She was having trouble with her BiPAP mask but now has nasal prongs with straps holding it on and does fine with it. She bleeds 5 L oxygen into it at night, uses 1 L pulse when sitti ng, and 4 L pulse when standing and walking. She would like a portable oxygen concentrator. She has prior authorization to continue the tadalafil and ambrisentan. She takes Lasix 80 mg daily and does not get swollen ankles. She is not taking spironolactone. See the [facility] ed section for medications. She had an echocardiogram mid 2016 to compare with the prior one of July 2016 after her therapy had been started. The estimated pulmonary artery pressure July 2016 was 36-41. Chambers were normal size. From the newer echocardiogram of March 19, 2017, estimated pulmona ry artery pressures were 59-64. Chamber sizes were normal. The IVC collapsed more than 50% with inspiration, suggesting normal right atrial pressures Physical exam: Tremulous somewhat overweight and very attentive articulate woman wearing ox ygen in no distress, here with her caregiver. Weight 82.9 kg, 182 pounds, down from 195 norris nds a year ago. Blood pressure 110/84, pulse 72 and regular. Respirations 18. Oxygen satu ration 92% sitting on 1 L. HEENT shows multiple areas of telangiectasia around the mouth. Oropharynx is otherwise normal. Pupils are reactive and conjunctiva are pink. The neck fee ls normal without JVD. The lung vasquez are clear entirely. Cardiac sounds are somewhat dis tant but second sound is physiologically split and I hear no gallop. Abdomen is obese but n ontender. Extremities show no edema. Laboratory evaluation: Other than echocardiogram described above there is no new lab today. Chest x-ray February 01, 2017 before my last visit showed clear lungs and a large main pulmona ry artery and retrosternal filling by the heart. Impression and plan: 1. Pulmonary hypertension: The suggested elevation in pulmonary artery pressure is only an estimated and has no clinical worsening correlate at the moment. Suggest continued observa tion and an echocardiogram in a month to assess for stability. If she were having worsening right heart failure she would have edema. Continue ambrisentan 10 mg and tadalafil at 40 m g once daily. 2. Overweight: We discussed how she might lose weight, by having eggs in the morning, part icularly egg whites, four or 5 days a week, to substitute for the oatmeal, to help suppress appetite. 3. Chronic hypoxia: She would like a portable oxygen concentrator and I agree it could sig nificantly help her with ambulation, maintaining cardiopulmonary fitness. We will request o ne from in-home medical. We spent 25 minutes vyco-oy-qpik, at least half in counseling. Word processing was used an d I apologize for mistakes. Scout Arthur M.D. Pulmonary critical care documented i n this encounter Plan of Treatment +--------+---------+ + + + | Date | Type | Specialty | Care Team | Description | +--------+---------+ + + + | 04/16/ | Office | Pulmonology | Helen Astudillo | | | 2019 | Visit | | MD Vikash [address] | | | | | | [address] | | | | | | [place] [address] | | | | | | [phone] | | | | | | | | +--------+---------+ + + + | 04/30/ | Office | Sleep Medicine | Jacky Calderon PA | | | 2019 | Visit | | [address] | | | | | | [place] | | | | | | [address] | | | | | | | | +--------+---------+ + + + documented as of this encounter Visit Diagnoses + + | Diagnosis | + + | Pulmonary hypertension, unspecified (HCC) - Primary | + + documented in this encounter
--- OUTSIDE RECORDS SUMMARY | ~2020-02-24 | XMS | Encounter Summary ---
Demographics + + + | Address | [address] | | | [place] [address] | + + + | Home Phone | | + + + | Preferred Language | Unknown | + + + | Marital Status | Single | + + + | Baptism Affiliation | NRP | + + + | Race | White | + + + | Ethnic Group | Not or | + + + Author + + + | Author | [facility] | + + + | Organization | [facility] | + + + | Address | Unknown | + + + | Phone | Unavailable | + + + Support + + +---------+ + | Name | Relationship | Address | Phone | + + +---------+ + | Lidia Thibodeaux | ECON | Unknown | | + + +---------+ + Care Team Providers + +------+ + | Care Replenishment Merchandising Associate Name | Role | Phone | + +------+ + | Yuni Shrestha VIKAS | PCP | | + +------+ + Encounter Details +--------+ + + + + | Date | Type | Department | Care Team | Description | +--------+ + + + + | 02/02/ | Document-Sc | Dermatology at | Marivel Rao, | | | 2016 | anned | Angelic Dasilva | ,PhD 1936 | | | | | Clinic [address] | [address] [place] | | | | | [place], [place] | [address] | | | | | [address] | [phone] | | | | | [phone] | | | +--------+ + + + [...]
--- OUTSIDE RECORDS SUMMARY | ~2020-02-24 | XMS | Clinical Summary ---
Demographics + + + | Address | [address] | | | [place] [address] | + + + | Home Phone | | + + + | Preferred Language | Unknown | + + + | Marital Status | Single | + + + | Taoist Affiliation | NRP | + + + [...] Providers + +------+ + | Care Chart Calculator Name | Role | Phone | + +------+ + | Yuni Shrestha | PCP | | + +------+ + Source Comments SARAH is fully live on both EpicCare Ambulatory and EpicCare InPatient.[facility] Allergies + + + + + + [...] e | + + + +---------+------+------+-------+ | [place]-3 Fatty | Take 1 Cap by mouth [...] | Dyspnea | 05/02/2013 | +---------+ + Encounters +--------+ + + + + | Date | Type | Specialty | Care Team | Description | +--------+ + + + + | 01/31/ | Documentati | Pulmonary Disease | Alexander Hays MD | | | 2020 | on | | | | +--------+ + + + + from Last 3 Months Immunizations + + + + | Name [...] + + | Influenza (Flu) | | 08/15/2017, 08/16/2016, | | | vaccination (#1) | 9 | 07/31/2015, Additional history | | | | | exists | | + + + + + | Pneumococcal | Completed | 03/12/2015, 05/08/2013 | | | vaccination | | | | + + + [...] | + +--------+ +--------+ + +--------+ | [employer] MEDICA[employer] | [employer] | [id number] | Effect | | | Medica | | | [place]AST[place] | | sofi | | | id | | | [place] | | for | | | | | | | | all | | | | | | | | dates | | | | + +--------+ +--------+ + +--------+ | MEDICAID [place] | OHP | xxxxxxxx | 04/07/20 | [phone] | [address] | Medica | | | PLUS | | 12-Pre | 6 | [address] | id | | | OPEN | | sent | | [place] | | | | CARD | | | | [id number] | | + +--------+ +--------+ + +--------+ [...] al/Fam | | 1965 | [phone] | [place] [address] | | | jammie | | | 0 (Home) | | + +--------+ +--------+ + + | Margarita Rowley May | Person | Self | [birth year] | [address] | | | al/Fam | | 1965 | [phone] | [place] [address] | | | jammie | | | [...]
--- OUTSIDE RECORDS SUMMARY | ~2020-02-24 | XMS | Encounter Summary ---
Demographics + + + | Address | [address] | | | [place] [address] | + + + | Home Phone | | + + + | Preferred Language | Unknown | + + + | Marital Status | Single | + + + | Hoahaoism Affiliation | 1009 | + + + | Race | Unknown | + + + | Ethnic Group | Unknown | + + + Author + + + | Author | [facility] | | | and [place] | + + + | Organization | [facility] | | | and [place] | + + + | Address | Unknown | + + + | Phone | Unavailable | + + + Support + + + + + | Name | Relationship | Address | Phone | + + + + + | [employer] | ECON | [id number] | | | | | Unknown | | + + + + + Care Team Providers + +------+ + | Care Wood Room Supervisor Name | Role | Phone | + +------+ + | Gela Trimble NP | PCP | | + +------+ + Reason for Visit +--------+ + | Reason | Comments | +--------+ + | Other | PA# for prescription Tim CALDERON#[id number] from 08.07.13-08.07.14 | +--------+ + Encounter Details +--------+ + + + + | Date | Type | Department | Care Team | Description | +--------+ + + + + | 08/08/ | Telephone | [facility] | Valeria Reed, | Other (PA# for | | 2012 | | PULMONARY [address] | RN | prescription Adcirca | | | | [place], | | PA#[id number] from | | | | [place] [address] | | 08.07.13-08.07.14) | | | | [phone] | | | +--------+ + + + [...] | 04/16/ | Office | Pulmonology | Sahib, Helen | | | 2019 | Visit | | MD Vikash [address] | | | | | | [address] | | | | | | [place] [address] | | | | | | [phone] | | | | | | | [...]
--- OUTSIDE RECORDS SUMMARY | ~2020-02-24 | XMS | Encounter Summary ---
Demographics + + + | Address | [address] | | | [place] [address] | + + + | Home Phone | | + + + | Preferred Language | Unknown | + + + | Marital Status | Single | + + + | Restoration Affiliation | 1009 | + + + | Race | Unknown | + + + | Ethnic Group | Unknown | + + + Author + + + | Author | [facility] | | | and [place] | + + + | Organization | [facility] | | | and [place] | + + + | Address | Unknown | + + + | Phone | Unavailable | + + + Support + + + + + | Name | Relationship | Address | Phone | + + + + + | Projects [employer] | ECON | [id number] | | | | | Unknown | | + + + + + Care Team Providers + +------+ + | Care Building Carpenter Name | Role | Phone | + +------+ + | Gela Trimble BILLET INSPECTOR | PCP | | + +------+ + [...] | Primary | [place], | [address] | | | | | pulmonary | Vera B, | [place], | | | | | hypertension | MD [address] | [place] | | | | | (HCC) | [address] | [address] | | | | | Procedures | MARIA [place]A [place], | Phone: | | | | | ECHO | [place] [address] | [phone] | | | | | Complete | | Fax: | | | | | | | [phone] | +--------+--------+ + + + + Reason [...] | Primary | [place], | [address] | | | | | pulmonary | Vera B, | [place], | | | | | hypertension | MD [address] | [place] | | | | | ([facility]) | [address] | [address] | | | | | Procedures | MARIA DOLORESA MARIA [place], | Phone: | | | | | ECHO | [place] [address] | [phone] | | | | | Complete | | Fax: | | | | | | | [phone] | +--------+--------+ + + + + Encounter Details +--------+ + + + + | Date | Type | Department | Care Team | Description | +--------+ + + + + | 09/11/ | Hospital | [facility] | [place], | Primary pulmonary | | 2013 | Encounter | [facility] ECHO [address] | Vera Farrar MD | hypertension | | | | [address] [place] | Taya Kirby, | | | | | [place] [address] | Technologist | | | | | [phone] | | | +--------+ + + + [...] + + + +---------+ + + | [place] St[facility] POWD | by Does not apply [...] + + + +---------+ + + | [place]-3 Fatty | Take by mouth. | | [...] | | | | | [place] [address] | | | | | | [phone] | | | | | | | | +--------+---------+ + + + | 04/30/ | Office | Sleep Medicine | Jacky Calderon PA | | | 2019 | Visit | | [address] | | | | | | [place] | | | | | | [address] | | | | | | | [...] Performed At | + + + | [facility] ECHOCARDIOGRAM REPORT | GANS | | STUDY DATE: 09/11/2014 PATIENT NAME: Margarita Rowley : | [facility] | | 1965 PCP: Gela Trimble NP | [facility] | | CLINICAL HISTORY/DIAGNOSIS: Pulmonary hypertension A [...] | | Ananth Salguero MD PhD [facility] 09/11/2014 10:45 | | | Leaflet Distributor: Hung Caro, RDCS, RVT, RDMS | | + + + + + | Procedure Note | + + | Roberto Salguero MD - 09/12/2014 9:12 AM [facility] | | CENTERECHOCARDIOGRAM REPORTSTUDY DATE: 09/11/2014PATIENT NAME: Margarita Vora: | | 1965MRN: [id number]: Gela Trimble, [facility] H[facility]/DIAGNOSIS: | | Pulmonary hypertensionA transthoracic [...] PP mmHgLA volume: 30 mLLA index: 16 mL/y1Sznauz Inflow DT: 272 | | msIVRT: 110 msValsalva: Not neededPWDTI S wave: 7.2 cm/sPWDTI E wave: 8.0 cm/sPWDTI | | A wave: 10.4 cm/sE/A Ratio: 0.769E/E Ratio: 10.63Signed by: Artie Salguero MD | | PhD [facility] 09/11/2014 10:45 Leaflet Distributor: Hung Caro, RDCS, RVT, RDMS | |Tricuspid [...] 09/11/2014 10:45 | | | | | |Leaflet Distributor: Hung Caro, RDCS, RVT, RDMS | + + + + + + + | Performing | Address | City/State/Zipcode | Phone Number | | Organization | | | | + + + + + | [address] | [address] | [place] | [phone] | | [facility] | | [address] | | | - IMAGING | | [...]
--- OUTSIDE RECORDS SUMMARY | ~2020-02-24 | XMS | Encounter Summary ---
Demographics + + + | Address | [address] | | | [place] [address] | + + + | Home Phone | | + + + | Preferred Language | Unknown | + + + | Marital Status | Single | + + + | Worship Affiliation | 1009 | + + + | Race | Unknown | + + + | Ethnic Group | Unknown | + + + Author + + + | Author | [facility] | | | and [place] | + + + | Organization | [facility] | | | and [place] | + + + | Address | Unknown | + + + | Phone | Unavailable | + + + Support + + + + + | Name | Relationship | Address | Phone | + + + + + | [employer] | ECON | [id number] | | | | | Unknown | | + + + + + Care Team Providers + +------+ + | Care Historiography Teacher Name | Role | Phone | [...] | [address] [place], [place] | [place] [address] | | | | | [address] | [phone] | | | | | [phone] | | | +--------+ + + + [...] | | | | | [place] [address] | | | | | | [phone] | | | | | | | | +--------+---------+ + + + | 04/30/ | Office | Sleep Medicine | Jacky Calderon PA | | | 2020 | Visit | | [address] | | | | | | [place] | | | | | | [id number] | | | | | | | | +--------+---------+ + + + documented as of this encounter Visit Diagnoses Not on filedocumented in this encounter"
--- OUTSIDE RECORDS SUMMARY | ~2020-02-24 | XMS | Encounter Summary ---
Demographics + + + | Address | [address] | | | [place] [address] | + + + | Home Phone [...] Organization | [facility] | | | and [place] | + + + | Address | Unknown | + + + | Phone | Unavailable | + + + Support + + + + + | Name | Relationship | Address | Phone | + + + + + | [employer] | ECON | [phone] | | | | | Unknown | | + + + + + Care Team Providers + +------+ + | Care Digital Content Producer Name | Role | Phone | + [...] [address] [place] | [address] | | | | | [place], [place] | [place], [place] | | | | | [address] | [address] | | | | | [phone] | [phone] | | | | | | | [...] | | | | | [place] [address] | | | | | | [phone] | | | | | | | [...]
--- OUTSIDE RECORDS SUMMARY | ~2020-02-24 | XMS | Encounter Summary ---
Demographics + + + | Address | [address] | | | [place] [address] | + + + | Home Phone | | + + + | Preferred Language | Unknown | + + + | Marital Status | Single | + + + | Religion Affiliation | 1009 | + + + | Race | Unknown | + + + | Ethnic Group | Unknown | + + + Author + + + | Author | [facility] | | | and [place] | + + + | Organization | [facility] | | | and [place] | + + + | Address | Unknown | + + + | Phone | Unavailable | + + + Support + + + + + | Name | Relationship | Address | Phone | + + + + + | [employer] | ECON | [id number] | | | | | Unknown | | + + + + + Care Team Providers + +------+ + | Care Bonus Clerk Name | Role | Phone | + +------+ + | Yuni Shrestha | PCP | | + +------+ + Encounter Details +--------+ + + + + | Date | Type | Department | Care Team | Description | +--------+ + + + + | 07/15/ | Abstract | [facility] [place] | Fatou, | | | 2014 | | PULMONARY [address] | Vera Farrar MD | | | | | [place], | | | | | | [place] [address] | | | | | | [phone] | | | +--------+ + + + [...] | | | | | [place] [address] | | | | | | [phone] | | | | | | | | +--------+---------+ + + + | 04/30/ | Office | Sleep Medicine | Jacky Calderon PA | | | 2020 | Visit | | [address] | | | | | | [place] | | | | | | [address] | | | | | | | [...] + + + + + + | HCG | Negative | | | | | Qualitative | | | | | | , Urine | | | | | + + + + + + + + | Specimen | + + | | + + documented in this encounter Visit Diagnoses Not on filedocumented in this encounter"
--- OUTSIDE RECORDS SUMMARY | ~2020-02-24 | XMS | Encounter Summary ---
Demographics + + + | Address | [address] | | | [place] [address] | + + + | Home Phone [...] + | Organization | [facility] | | | and [place] | + + + | Address | Unknown | + + + | Phone | Unavailable | + + + Support + + + + + | Name | Relationship | Address | Phone | + + + + + | [employer] | ECON | [id number] | | | | | Unknown | | + + + + + Care Team Providers + +------+ + | Care Jaw Skinner Name | Role | Phone | + [...] + + | 07/23/ | Office | [facility] | Jacky Calderon PA | Primary central | | 2016 | Visit | SLEEP DISORDER [address] | [address] | sleep apnea (Primary | | | | [address] | [place] | Dx) | | | | [place] [address] | [address] | | | | | [phone] | | | +--------+---------+ + + + [...] was: 05/22/2015 date of polysomnography: 03/13/2013 at [facility] AHI: 64.2 O2%: n/a Machine type: Respironics BiPAP Auto with ResMed Quattro FX full face mask obtained from: [email or web address] in [place] pressure: 16/5 cm with backup rate of [...] Assessment: Problem #1: PRIMARY CENTRAL SLEEP APNEA ([id number]) This is controlled with BiPAP and oxygen at 5 L/min. Her compliance is going very well. Plan: 1. She is to continue with BiPAP indefinitely. 2. She is to touch base with her medical supplier twice per year to ensure that her equipm ent is satisfactory. I will follow up with her in 1 year, sooner prn. Fifteen minutes were spent wuxy-mt-doba, with the majority of time spent in [...] | | | | | [place] [address] | | | | | | [phone] | | | | | | | | +--------+---------+ + + + | 04/30/ | Office | Sleep Medicine | Jacky Calderon PA | | | 2020 | Visit | | [address] | | | | | | [place] | | | | | | [address] | | | | | | | | +--------+---------+ + + + documented as of this encounter Visit Diagnoses + + | Diagnosis | + + | Primary central sleep apnea - Primary | + + documented in this encounter"
--- OUTSIDE RECORDS SUMMARY | ~2020-02-24 | XMS | Encounter Summary ---
Demographics + + + | Address | [address] | | | [place] [address] | + + + | Home Phone | | + + + | Preferred Language | Unknown | + + + | Marital Status | Single | + + + | Presybeterian Affiliation | 1009 | + + + | Race | Unknown | + + + | Ethnic Group | Unknown | + + + Author + + + | Author | [facility] | | | and [place] | + + + | Organization | [facility] | | | and [place] | + + + | Address | Unknown | + + + | Phone | Unavailable | + + + Support + + + + + | Name | Relationship | Address | Phone | + + + + + | Projects Horizon | ECON | [id number] | | | | | Unknown | | + + + + + Care Team Providers + +------+ + | Care Multiple Knife Edge Trimmer Operator Name | Role | Phone | + +------+ + | Yuni Shrestha | PCP | | + +------+ + Encounter Details +--------+ + + + + | Date | Type | Department | Care Team | Description | +--------+ + + + + | 02/02/ | Hospital | [facility] | Saharaenstein, | Primary pulmonary | | 2016 | Encounter | MED CTR PULMONARY | Vera Farrar MD | hypertension | | | | FUNCTION [address] | | | | | | [place], | | | | | | [place] [address] | | | | | | [phone] | | | +--------+ + + + [...] | 0 | 12/11/19 | | | (IRENE) 0.65% nasal | package instructions | Bottle [...] + + + +---------+ + + | Kimberly Starch POWD | by Does not apply [...] + + + +---------+ + + | [place]-3 Fatty | Take by mouth. | | [...] 08/06/20 | | | Therapy Supplies | [facility]'s office | | | 13 [...] | | | | | [place] [address] | | | | | | [phone] | | | | | | | | +--------+---------+ + + + | 04/30/ | Office | Sleep Medicine | Jacky Calderon PA | | | 2019 | Visit | | [address] | | | | | | [place] | | | | | | [id number] | | | | | | | [...]
--- OUTSIDE RECORDS SUMMARY | ~2020-02-24 | XMS | Encounter Summary ---
Demographics + + + | Address | [address] | | | [place] [address] | + + + | Home Phone | | + + + | Preferred Language | Unknown | + + + | Marital Status | Single | + + + | Mormonism Affiliation | 1009 | + + + | Race | Unknown | + + + | Ethnic Group | Unknown | + + + Author + + + | Author | [facility] | | | and [place] | + + + | Organization | [facility] | | | and [place] | + + + | Address | Unknown | + + + | Phone | Unavailable | + + + Support + + + + + | Name | Relationship | Address | Phone | + + + + + | Projects Horizon | ECON | [id number] | | | | | Unknown | | + + + + + Care Team Providers + +------+ + | Care Billing Associate Name | Role | Phone | [...] [place], | | | | | | [place] [address] | | | | | | [phone] | | | +--------+ + + + [...] | | | | | [place] [address] | | | | | | [phone] | | | | | | | | +--------+---------+ + + + | 04/30/ | Office | Sleep Medicine | Jacky Calderon PA | | | 2019 | Visit | | [address] | | | | | | [place] | | | | | | [address] | | | | | | | | +--------+---------+ + + + documented as of this encounter Visit Diagnoses Not on filedocumented in this encounter"
--- OUTSIDE RECORDS SUMMARY | ~2020-02-24 | XMS | Encounter Summary ---
Demographics + + + | Address | [address] | | | [place] [address] | + + + | Home Phone [...] Organization | [facility] | | | and [place] | + + + | Address | Unknown | + + + | Phone | Unavailable | + + + Support + + + + + | Name | Relationship | Address | Phone | + + + + + | Projects Horizon | ECON | [id number] | | | | | Unknown | | + + + + + Care Team Providers + +------+ + | Care Hydro Station Operator Name | Role | Phone | [...] in to BIPAP) | | | | [place], | | | | | | [place] [address] | | | | | | [phone] | | | +--------+ + + + [...] | | | | | [place] [address] | | | | | | [phone] | | | | | | | | +--------+---------+ + + + | 04/30/ | Office | Sleep Medicine | Jacky Calderon PA | | | 2019 | Visit | | [address] | | | | | | [place] | | | | | | [address] | | | | | | | | +--------+---------+ + + + documented as of this encounter Visit Diagnoses Not on filedocumented in this encounter"
--- OUTSIDE RECORDS SUMMARY | ~2020-02-24 | XMS | Encounter Summary ---
Demographics + + + | Address | [address] | | | [place] [address] | + + + | Home Phone [...] Organization | [facility] | | | and [place] | + + + | Address | Unknown | + + + | Phone | Unavailable | + + + Support + + + + + | Name | Relationship | Address | Phone | + + + + + | Projects Horizon | ECON | [id number] | | | | | Unknown | | + + + + + Care Team Providers + +------+ + | Care Compressor Operator Name | Role | Phone | [...] | Closed | | | Diagnoses | Reina, | Jerson | | | | | Chronic | Shanice Paez, | Scout Mistry MD | | | | | obstructive | [address] | [address] | | | | | pulmonary | [place] | [place], [place] | | | | | disease, | [place], | [address] | | | | | unspecified | [place] | Phone: | | | | | (HCC) | [address] | [phone] | | | | | Procedures | Phone: | Fax: | | | | | OFFICE VISIT | [phone] | [phone] | | | | | EXTENDED | Fax: | | | | | | | [phone] | | +--------+--------+ + + + + Encounter Details +--------+---------+ + + + | Date | Type | Department | Care Team | Description | +--------+---------+ + + + | 01/31/ | Office | [facility] | Scout Arthur, | Primary pulmonary | | 2019 | Visit | PULMONARY [address] | MD [address] | hypertension (HCC) | | | | [place], | [place] [address] | (Primary Dx); | | | | [place] [address] | [phone] | Hypoxia | | | | [phone] | | | +--------+---------+ + + + [...] + + + | Blood Pressure | 100/66 | 01/31/2019 1:36 PM | | | | | PDT | | + + + + + | Pulse | 69 | 01/31/2019 1:36 PM | | | | | PDT | | + + + + + | Temperature | 37 C (98.6 F) | 01/31/2019 1:36 PM | | | | | PDT | | + + + + + | Respiratory Rate | - | - | | + + + + + | Oxygen Saturation | 91% | 01/31/2019 1:36 PM | 4L PULSE | | | | PDT | | + + + + + | Inhaled Oxygen | - | - | | | Concentration | | | | + + + + + | Weight | 77.7 kg (171 lb 4.8 | 01/31/2019 1:36 PM | | | | oz) | PDT | | + + + + + | Height | 139.7 cm (4' 7") | 01/31/2019 1:36 PM | | | | | PDT | | + + + + + | Body Mass Index | 39.81 | 01/31/2019 1:36 PM | | | | | PDT | | + + + + + documented in this encounter Progress Notes Scout Arthur MD - 01/31/2019 2:00 PM [id number] former smoker with primar y pulmonary hypertension and hypoxia, now quite stable on treatment This is her third annual visit, thus I have followed her for 2 years. The past 2 years we have repeated echocardiograms. The estimated PA systolic pressure in July 2016 was 36-41 , with normal size chambers. In March 19, 2017 he estimated PA pressures were 59-64 with norm al chambers, and IVC collapsed greater than 50%. There has been no change in her status sin ce then so I have not repeated the echocardiogram this year. She takes ambrisentan 10 mg an d tadalafil 40 mg and Lasix 80 mg every morning. She strictly limit salt. She does not amb ulate very much but watches her diet and has a fluid restriction to 2500 mL. We tried to get her a portable oxygen concentrator but Medicaid would not pay for. She use s a tank with 2 L when sitting, 4 L when ambulating, by pulse on demand system. She uses BiPAP at night with 5 L oxygen bled in from the concentrator. Her caregiver here today tells me the BiPAP machine is old and not repairable so we are asking [facility] in [facility] to give her a new BiPAP machine at the same settings, with necessary acc essories. Physical exam: Very tremulous pleasant attentive wearing nasal oxygen here with her caregiv er in no distress. Weight 77.7 kg blood pressure 100/66 pulse 69 oxygen saturation 91% on 2 L pulse temperature 98.6 respirations 24 HEENT shows small non-reactive pupils, pink conjun ctiva. The oropharynx is normal. The neck feels normal. There is no jugular venous disten tion. I feel no adenopathy. The lung vasquez are completely clear with good airflow at the mouth on forced exhalation. There are no rales. Cardiac exam shows a regular prominent be, with paradoxically split S2 but I don't hear a murmur. There is no gallop. The abdomen so obese but benign. Extremities show no edema. Laboratory evaluation: There is a note from Dr. Huang in [place] that CMP, CBC, and ESR w ere ordered but we don't have the results. I presume Dr. Huang followed up if there was any thing of concern. Our last chest imaging is from February 01, 2017 and shows a filled retroster nal airspace but clear lungs otherwise. Impression and plan: 1. Primary pulmonary hypertension: Remain on her current 3 drugs as above 2. Hypoxia: We were told that because she is on Medicaid, she is ineligible for an oxygen concentrator. Therefore she will remain on tank oxygen. We're requesting new BiPAP equipme nt. We spent 20 minutes, [id number], at least half in counseling. Word processing was used a nd I apologize for mistakes. Scout Arthur M.D. Pulmonary critical care documented in this encounter Plan of Treatment [...] | | | | | [place] [address] | | | | | | [phone] | | | | | | | | +--------+---------+ + + + | 04/30/ | Office | Sleep Medicine | Jacky Calderon PA | | | 2019 | Visit | | [address] | | | | | | [place] | | | | | | [id number] | | | | | | | | +--------+---------+ + + + documented as of this encounter Visit Diagnoses + + | Diagnosis | + + | Primary pulmonary hypertension (HCC) - Primary Primary pulmonary hypertension | + + | Hypoxia Hypoxemia | + + documented in this encounter
--- OUTSIDE RECORDS SUMMARY | ~2020-02-24 | XMS | Encounter Summary ---
Demographics + + + | Address | [address] | | | [place] [address] | + + + | Home Phone [...] + + + | Author | [facility] | | | and [place] | + + + | Organization | [facility] | | | and [place] | + + + | Address | Unknown | + + + | Phone | Unavailable | + + + Support + + + + + | Name | Relationship | Address | Phone | + + + + + | Projects Horizon | ECON | [id number] | | | | | Unknown | | + + + + + Care Team Providers + +------+ + | Care Roller Operator Name | Role | Phone | [...] | Primary | Off[place], | [address] | | | | | pulmonary | Vera B, | [place], | | | | | hypertension | MD [address] | [place] | | | | | ([facility]) | [address] | [address] | | | | | Procedures | [place], | Phone: | | | | | ECHO | [place] [address] | [phone] | | | | | Complete [place] | | Fax: | | | | | ECHO HEART | | [phone] | | | | | XTHORACIC,[place] | | | | | | | MPLETE [address] | | | | | | | DOPPLER [place] | | | | | | | [...] | Primary | Offenstein, | [address] | | | | | pulmonary | Vera B, | [place], | | | | | hypertension | MD [address] | [place] | | | | | ([facility]) | [address] | [address] | | | | | Procedures | [place], | Phone: | | | | | ECHO | [place] [address] | [phone] | | | | | Complete [place] | | Fax: | | | | | ECHO HEART | | [phone] | | | | | XTHORACIC,[place] | | | | | | | MPLETE [address] | | | | | | | DOPPLER [place] | | | | | | | [...] + + | 03/26/ | Hospital | [facility] | Saharaenstein, | Primary pulmonary | | 2014 | Encounter | MED CTR ECHO [address] | Vera Farrar MD | hypertension | | | | [place] | [place], | | | | | [place] [address] | Technologist | | | | | [phone] | | | +--------+ + + + [...] + + + +---------+ + + | [place] Starch POWD | by Does not apply [...] + + + +---------+ + + | [place]-3 Fatty | Take by mouth. | | [...] | | | | | [place] [address] | | | | | | [phone] | | | | | | | | +--------+---------+ + + + | 04/30/ | Office | Sleep Medicine | Jacky Calderon PA | | | 2019 | Visit | | [address] | | | | | | [place] | | | | | | [address] | | | | | | | [...] At | + + + | [facility] ECHOCARDIOGRAM REPORT | [facility] | | STUDY DATE: 03/26/2015 PATIENT NAME: Margarita Rowley : | [facility] | | 1965 PCP: Physician Elisabeth CLINICAL [...] Signed by: Derick Strong, | | | [facility] 03/26/2015 13:52 Credit Union Manager: [place], | | | RDCS, RDMS, RVT | | + + + + + + + + | Performing | Address | City/State/Zipcode | Phone Number | | Organization | | | | + + + + + | [facility] | [address] | [place], [place] | [phone] | | [facility] | | [address] | | | - IMAGING | | [...]
--- OUTSIDE RECORDS SUMMARY | ~2020-02-24 | XMS | Encounter Summary ---
Demographics + + + | Address | [address] | | | [place] [address] | + + + | Home Phone [...] | [facility] | | | and [place]am[place] | + + + | Address | Unknown | + + + | Phone | Unavailable | + + + Support + + + + + | Name | Relationship | Address | Phone | + + + + + | Projects [employer] | ECON | [id number] | | | | | Unknown | | + + + + + Care Team Providers + +------+ + | Care Digital Sales Assistant Name | Role | Phone | + +------+ + | Yuni Shrestha | PCP | | + +------+ + Encounter Details +--------+ + + + + | Date | Type | Department | Care Team | Description | +--------+ + + + + | 11/07/ | Orders Only | [facility] | Meryl Montiel | High risk medication | | 2016 | | MED CTR LABORATORY | Zari Driver Utility Worker | use | | | | [address] [place] | | | | | | [place] | | | | | | [address] | | | | | | [phone] | | | +--------+ + + + [...] | | | | | [place] [address] | | | | | | [phone] | | | | | | | | +--------+---------+ + + + | 04/30/ | Office | Sleep Medicine | Jacky Calderon PA | | | 2020 | Visit | | [address] | | | | | | [place] | | | | | | [address] | | | | | | | | +--------+---------+ + + + documented as of this encounter Procedures + +--------+ + + + | Procedure Name | Priori | Date/Time | Associated Diagnosis | Comments | | | ty | | | | + +--------+ + + + | CBC WITH | Routin | 11/07/2015 | High risk | Results for this | | DIFFERENTIAL | e | 3:37 PM | medication use | procedure are in the | | | | PST | | results section. | + +--------+ + + + | COMPREHENSIVE | Routin | 11/07/2015 | High risk | Results for this | | METABOLIC PANEL | e | 3:37 PM | medication use | procedure are in the | | [...] | | | | | mmol/L | [facility] | | | | [...] | | | | mg/dL | [facility] | | | | | | MEDICAL | | | | | | CENTER - | | | | | | LABORATORY | | + + + + + + | eGFR if not | 57 (L)Comment: | >=60 | [facility] | | | | GLOMER[facility] | mL/min/1.73m2 | [facility] | | | FINNISH | RATE,ESTIMATED | | MEDICAL | | | | mL/min/1.24f5Fidp than | | CENTER - | | [...] | 9.6 | 8.3 - 10.5 | [facility] | | | | | mg/dL | [...] | [facility] | [address] | [place] | [phone] | | [facility] | | [address] | | | - LABORATORY | | [...] | | | | | g/dL | [facility] | | | | [...] | Basophils | | K/uL | [facility] | | | | [...] [address] | [place] | [phone] | | [facility] | | [address] | | | - LABORATORY | | | | + + + + + documented in this encounter Visit Diagnoses + + | Diagnosis | + + | High risk medication use Encounter for long-term (current) use of other medications | + + documented in this encounter"
--- OUTSIDE RECORDS SUMMARY | ~2020-02-24 | XMS | Encounter Summary ---
Demographics + + + | Address | [address] | | | [place] [address] | + + + | Home Phone [...] | Organization | [facility] | | | and [place] | + + + | Address | Unknown | + + + | Phone | Unavailable | + + + Support + + + + + | Name | Relationship | Address | Phone | + + + + + | Projects Horizon | ECON | [id number] | | | | | Unknown | | + + + + + Care Team Providers + +------+ + | Care Account Services Specialist Name | Role | Phone | [...] | | | | | | [place] [address] | | | | | | [phone] | | | +--------+ + + + [...] | | | | | [place] [address] | | | | | | [phone] | | | | | | | | +--------+---------+ + + + | 04/30/ | Office | Sleep Medicine | Jacky Calderon PA | | | 2020 | Visit | | [address] | | | | | | [place] | | | | | | [address] | | | | | | | [...]
--- OUTSIDE RECORDS SUMMARY | ~2020-02-24 | XMS | Encounter Summary ---
Demographics + + + | Address | [address] | | | [place] [address] | + + + | Home Phone [...] | Organization | [facility] | | | and [place] | + + + | Address | Unknown | + + + | Phone | Unavailable | + + + Support + + + + + | Name | Relationship | Address | Phone | + + + + + | Projects Horizon | ECON | [id number] | | | | | Unknown | | + + + + + Care Team Providers + +------+ + | Care Grit Blaster Name | Role | Phone | + +------+ + | Gela Trimble NP | PCP | | + +------+ + Encounter Details +--------+ + + + + | Date | Type | Department | Care Team | Description | +--------+ + + + + | 08/27/ | Hospital | [facility] | Saharaenstein, | Primary pulmonary | | 2012 | Encounter | MED CTR LABORATORY | Vera Farrar MD | hypertension (HCC) | | | | [address] [place] | | | | | | [place] | | | | | | [address] | | | | | | [phone] | | | +--------+ + + + [...] | | | | | | ([facility]LY [facility]) | | | | | | + + + +---------+ + + | buPROPion | Take 100 mg by mouth | | 0 | | | | (WELLBUTRIN) 100 mg | 2 times daily. | | | | 6 | | tablet | | | | | | + + + +---------+ + + | [place] Starch POWD | by Does not apply [...] + + + +---------+ + + | [place]-3 Fatty | Take by mouth. | | [...] | | | | | [place] [address] | | | | | | [phone] | | | | | | | | +--------+---------+ + + + | 04/30/ | Office | Sleep Medicine | Jacky Calderon PA | | | 2019 | Visit | | [address] | | | | | | [place] | | | | | | [id number] | | | | | | | [...] [address] | [place] | [phone] | | [facility] | | [address] | | | - LABORATORY | | | | + + + + + | [facility] | [address] | [place] | | | [facility] | | [address], [facility] | | | - LABORATORY | [...] + | [facility] | [address] | [place], [place] | [phone] | | [facility] | | [address] | | | - LABORATORY | | | | + + + + + | [facility] | [address] | [place], [place] | | | [facility] | | [address] [place] [address] | | | - LABORATORY | | | | + + + + + documented in this encounter Visit Diagnoses + + | Diagnosis | + + | Primary pulmonary hypertension (HCC) Primary pulmonary hypertension | + + documented in this encounter"
--- OUTSIDE RECORDS SUMMARY | ~2020-02-24 | XMS | Encounter Summary ---
Demographics + + + | Address | [address] | | | [place] [address] | + + + | Home Phone [...] + + + | Author | [facility] | | | and [place] | + + + | Organization | [facility] | | | and [place] | + + + | Address | Unknown | + + + | Phone | Unavailable | + + + Support + + + + + | Name | Relationship | Address | Phone | + + + + + | Projects [employer] | ECON | [id number] | | | | | Unknown | | + + + + + Care Team Providers + +------+ + | Care Special Distribution Clerk Name | Role | Phone | + +------+ + PCP | Unavailable | + +------+ + Encounter Details +--------+ + + + + | Date | Type | Department | Care Team | Description | +--------+ + + + + | 01/02/ | Hospital | [facility] | Karel Dailey | | | 2008 | Encounter | HOSPITAL EMERGENCY | MD [address] | | | | | CENTER [address] | [place], | | | | | [address] [place], [place] | [place] [address] | | | | | [address] | [phone] | | | | | [phone] | | | +--------+ + + + [...] | | | | | [place] [address] | | | | | | [phone] | | | | | | | | +--------+---------+ + + + | 04/30/ | Office | Sleep Medicine | Jacky Calderon PA | | | 2020 | Visit | | [address] | | | | | | [place] | | | | | | [address] | | | | | | | | +--------+---------+ + + + documented as of this encounter Visit Diagnoses Not on filedocumented in this encounter"
--- OUTSIDE RECORDS SUMMARY | ~2020-02-24 | XMS | Encounter Summary ---
Demographics + + + | Address | [address] | | | [place] [address] | + + + | Home Phone [...] | Organization | [facility] | | | and [place] | + + + | Address | Unknown | + + + | Phone | Unavailable | + + + Support + + + + + | Name | Relationship | Address | Phone | + + + + + | Projects Horizon | ECON | [id number] | | | | | Unknown | | + + + + + Care Team Providers + +------+ + | Care Concrete Form Setter And Finisher Name | Role | Phone | + [...] [place], | | | | | | [place] [address] | | | | | | [phone] | | | +--------+ + + + [...] | | | | | [place] [address] | | | | | | [phone] | | | | | | | | +--------+---------+ + + + | 04/30/ | Office | Sleep Medicine | Jacky Calderon PA | | | 2020 | Visit | | [address] | | | | | | [place] | | | | | | [address] | | | | | | | | +--------+---------+ + + + documented as of this encounter Visit Diagnoses Not on filedocumented in this encounter"
--- OUTSIDE RECORDS SUMMARY | ~2020-02-24 | XMS | Encounter Summary ---
Demographics + + + | Address | [address] | | | [place] [address] | + + + | Home Phone | | + + + | Preferred Language | Unknown | + + + | Marital Status | Single | + + + | Yazidism Affiliation | 1009 | + + + | Race | Unknown | + + + | Ethnic Group | Unknown | + + + Author + + + | Author | [facility] | | | and [place] | + + + | Organization | [facility] | | | and [place] | + + + | Address | Unknown | + + + | Phone | Unavailable | + + + Support + + + + + | Name | Relationship | Address | Phone | + + + + + | Projects Horizon | ECON | [id number] | | | | | Unknown | | + + + + + Care Team Providers + +------+ + | Care Ethanol Operations Manager Name | Role | Phone | + +------+ + PCP | Unavailable | + +------+ + Encounter Details +--------+ + + + + | Date | Type | Department | Care Team | Description | +--------+ + + + + | 10/13/ | Hospital | [facility] | Shady Mcdonald | | | 2008 | Encounter | HOSPITAL XRAY [address] | [address] | | | | | [address] | [place], [place] | | | | | [place] | [address] | | | | | [address] | [phone] | | | | | [phone] | | | +--------+ + + + [...] | | | | | [place] [address] | | | | | | [phone] | | | | | | | | +--------+---------+ + + + | 04/30/ | Office | Sleep Medicine | Jacky Calderon PA | | | 2020 | Visit | | [address] | | | | | | [place] | | | | | | [address] | | | | | | | | +--------+---------+ + + + documented as of this encounter Visit Diagnoses Not on filedocumented in this encounter"
--- OUTSIDE RECORDS SUMMARY | ~2020-02-24 | XMS | Encounter Summary ---
Demographics + + + | Address | [address] | | | [place] [address] | + + + | Home Phone [...] | Organization | [facility] | | | and [place] | + + + | Address | Unknown | + + + | Phone | Unavailable | + + + Support + + + + + | Name | Relationship | Address | Phone | + + + + + | [employer] | ECON | [id number] | | | | | Unknown | | + + + + + Care Team Providers + +------+ + | Care Electrical Tester Battery Name | Role | Phone | + [...] Description | +--------+--------+ + + + | 01/18/ | Refill | [facility] [place] | Sah[place], | Medication Refill | | 2015 | | PULMONARY [address] | Vera Farrar MD | | | | | [place], | | | | | | [place] [address] | | | | | | [phone] | | | +--------+--------+ + + + [...] | | | | | [place] [address] | | | | | | [phone] | | | | | | | | +--------+---------+ + + + | 04/30/ | Office | Sleep Medicine | Jacky Calderon PA | | | 2019 | Visit | | [address] | | | | | | [place] | | | | | | [id number] | | | | | | | | +--------+---------+ + + + documented as of this encounter Visit Diagnoses Not on filedocumented in this encounter"
--- OUTSIDE RECORDS SUMMARY | ~2020-02-24 | XMS | Encounter Summary ---
Demographics + + + | Address | [address] | | | [place] [address] | + + + | Home Phone | | + + + | Preferred Language | Unknown | + + + | Marital Status | Single | + + + | Moravian Affiliation | 1009 | + + + | Race | Unknown | + + + | Ethnic Group | Unknown | + + + Author + + + | Author | [facility] | | | and [place] | + + + | Organization | [facility] | | | and [place] | + + + | Address | Unknown | + + + | Phone | Unavailable | + + + Support + + + + + | Name | Relationship | Address | Phone | + + + + + | [employer] | ECON | [id number] | | | | | Unknown | | + + + + + Care Team Providers + +------+ + | Care Motor Grader Operator Name | Role | Phone | + +------+ + | Gela Trimble NP | PCP | | + +------+ + Reason for Visit +--------+ + | Reason | Comments | +--------+ + | Apnea | | +--------+ + Encounter Details +--------+---------+ + + + | Date | Type | Department | Care Team | Description | +--------+---------+ + + + | 12/26/ | Office | [facility] | Jacky Calderon PA | Primary central | | 2013 | Visit | SLEEP DISORDER [address] | [address] | sleep apnea (Primary | | | | [address] | [place], [place] | Dx) | | | | [place] [address] | [address] | | | | | [phone] | | | +--------+---------+ + + + [...] +---------+ + + | Blood Pressure | 92/60 | 12/26/2013 2:53 PM | | | | | PST | | + +---------+ + + | Pulse | 69 | 12/26/2013 2:53 PM | | | | | PST | | + +---------+ + + | Temperature | - | - | | + +---------+ + + | Respiratory Rate | 16 | 12/26/2013 2:53 PM | | | | | PST | | + +---------+ + + | Oxygen Saturation | 96% | 12/26/2013 2:53 PM | | | | | PST [...] encounter Progress Notes Jacky Calderon PA - 12/26/2013 2:44 PM PST Subjective: Patient ID: Margarita Rowley is a 48 y.o. female. HPI last office visit was: 11/20/2013 date of polysomnography: 03/13/2013 at [facility] AHI: 64.2 O2%: n/a Machine type: Respironics BiPAP Auto with ResMed Quattro FX full face mask obtained from: [facility] pressure: 19/5 cm Nights using BiPAP: 35/36 average usage (all nights): 6:37 average usage (nights used): 6:48 AHI: 65.5 Jessie comes in for follow up after her repeat BiPAP titration study. She has done well with her compliance, but her apnea has not been controlled. The AHI on today's download from last month was 65.5. This was a borderline study, but showed that her apnea was controlle d with IPAP of 16 cm and EPAP of 5 cm with a backup rate of 8. Oxygen was required at 5 L/m in bled into the circuitry in order to control her desaturation. I discussed these results with Margarita and her caregiver. They have a good understanding of these results. Review of Systems Objective: Physical Exam Assessment: Problem #1: CENTRAL SLEEP APNEA (327.21) The repeat titration study showed that her BiPAP pressures needed to be adjusted and her ox ygen increased. Plan: We have faxed a prescription to [facility] in [place] for a change in her pressure s etting to 16/5 cm with backup rate of 8 and 5 L/min oxygen bled into the circuitry. She is to continue with BiPAP at these settings. I will follow up with her in 1 month, sooner prn. Thirty minutes were spent [id number], with the majority of time spent in [...] | | | | | [place] [address] | | | | | | [phone] | | | | | | | | +--------+---------+ + + + | 04/30/ | Office | Sleep Medicine | Jacky Calderon PA | | | 2019 | Visit | | [address] | | | | | | [place] | | | | | | [address] | | | | | | | | +--------+---------+ + + + documented as of this encounter Visit Diagnoses + + | Diagnosis | + + | Primary central sleep apnea - Primary | + + documented in this encounter"
--- OUTSIDE RECORDS SUMMARY | ~2020-02-24 | XMS | Encounter Summary ---
Demographics + + + | Address | [address] | | | [place] [address] | + + + | Home Phone [...] | Organization | [facility] | | | and [place] | + + + | Address | Unknown | + + + | Phone | Unavailable | + + + Support + + + + + | Name | Relationship | Address | Phone | + + + + + | [employer] | ECON | [id number] | | | | | Unknown | | + + + + + Care Team Providers + +------+ + | Care Fpga Design Engineer Name | Role | Phone | + +------+ + | Gela Trimble NP | PCP | | + +------+ + Reason for Visit +--------+ + | Reason | Comments | +--------+ + | Other | PA# for prescription Tim CALDERON#[id number] from 08.07.13-08.07.14 | +--------+ + Encounter Details +--------+ + + + + | Date | Type | Department | Care Team | Description | +--------+ + + + + | 08/08/ | Telephone | [facility] | Valeria Reed, | Other (PA# for | | 2012 | | PULMONARY [address] | RN | prescription [employer] | | | | [place], | | PA#[id number] from | | | | [place] [address] | | 08.07.13-08.07.14) | | | | [phone] | | | +--------+ + + + [...] | | | | | [place] [address] | | | | | | [phone] | | | | | | | [...]
--- OUTSIDE RECORDS SUMMARY | ~2020-02-24 | XMS | Encounter Summary ---
Demographics + + + | Address | [address] | | | [place] [address] | + + + | Home Phone | | + + + | Preferred Language | Unknown | + + + | Marital Status | Single | + + + | Amish Affiliation | NRP | + + + | Race | White | + + + | Ethnic Group | Not or | + + + Author + + + | Author | [facility] | + + + | Organization | [facility] | + + + | Address | Unknown | + + + | Phone | Unavailable | + + + Support + + +---------+ + | Name | Relationship | Address | Phone | + + +---------+ + | Lidia Thibodeaux | ECON | Unknown | | + + +---------+ + Care Team Providers + +------+ + | Care Top Collar Baster Name | Role | Phone | + +------+ + | Yuni Shrestha | PCP | | + +------+ + Reason for Referral Diagnostic Testing +--------+--------+ + + + + | Status | Reason | Specialty | Diagnoses / | Referred By | Referred To | | | | | Procedures | Contact | Contact | +--------+--------+ + + + + | Closed | | Clinical | Procedures | Cnl Eeg | Cnl Eeg Hrc | | | | Neurophysiolo | EEG | [address] | | | | gy | ROUTINE | [address] | Zach Saez | | | | | | Nadja Landin | Mushtaq Avendano | | | | | | Romana | Research | | | | | | Research | Center, 10th | | | | | | Center, 10th | Floor | | | | | | Floor | [place], [place] | | | | | | [place], [place] | [address] | | | | | | [address] | Phone: | | | | | | Phone: | [phone] | | | | | | [phone] | Fax: | | | | | | Fax: | [phone] | | | | | | [phone] | | +--------+--------+ + + + + Encounter Details +--------+ + + + + | Date | Type | Department | Care Team | Description | +--------+ + + + + | 03/27/ | Outside | Neurophysiology | Mustapha Vidal, | | | 2012 | Referral | EEG at [facility] [address] | [place] | | | | Order | [facility] | [facility] [address] | | | | | [place] [facility] | KATI AVJose Carlos | | | | | [place], 10th Floor | [place] [address] | | | | | [place], [place] | [phone] | | | | | [address] | | | | | | [phone] | | | +--------+ + + + [...] + | EEG ROUTINE | Routin | 03/27/2013 | | Results for this | | | e | | | procedure are in the | | | | | | results section. | + +--------+ + + + documented in this encounter Results EEG ROUTINE (03/27/2013) + + | Specimen | + + | | + + + + + | Narrative | Performed At | + + + | Patient Name: Margarita Rowley Date of : 1965 Medical | | | Record Number: [id number] Date of Test: 03/27/2013 Place of | | | Service: [facility] Department: EEG [facility] [id number] | | | ROUTINE EEG - [facility] Reason for Exam: Evaluate for | | | seizure activity. History: 47 year old female with history of | | | multiple medical problems, admitted with possible seizures in the | | | setting of sepsis and UTI. This EEG is requested to evaluate for | | | seizure activity. Medications (per faxed information sheet): - | | | Buproprion - Cetirizine - Docusate - Divalproex - Estradiol - | | | Fish oil - Gabapentin - HCTZ - Synthroid - Meloxicam - | | | Telmisartan - Omeprazole - Paroxetine - Albuterol - Risperidone - | | | Simvastatin - Tramadol - Vitamin C - Ferrous sulfate - Vitamin D | | | - Miconazole - Montelukast Methods: This study was a Routine | | | EEG with a duration of 21 minutes. The recording was performed with | | | routine electrodes applied according to the 10-20 electrode placement | | | system. Video, EKG, and EOG monitoring were utilized. The recording | | | was obtained on a digital system. EEG computer review was utilized. | | | Automated digital spike and seizure detection analysis was used, | | | along with patient-activated alarms and nursing observations. | | | Technologist's Note: No skull defect or scalp edema were present. | | | EEG Description: Background: The record was obtained in awake, | | | drowsy and sleep states. No sedation was used. The posterior awake | | | dominant background activity was a continuous, reactive rhythm of | | | (9-10 Hz, 20-30 uV). This was symmetric and well modulated, and | | | attenuated with eye opening. Symmetric diffuse frontocentral beta | | | range activity was present. The patient slept for much of the | | | recording period. As the patient grew drowsy, a drop out of the | | | background rhythm occurred with vertex sharp waves and sleep spindles | | | appearing symmetrically over the central region. Stage II sleep was | | | evident. Sleep patterns were symmetrical. K-complexes, vertex waves, | | | and sleep spindles were noted in deeper stages of sleep. | | | Interictal Findings: Abnormal slow wave activity: At times during | | | wakefulness, mild, diffuse, irregular slowing of the background (6-8 | | | Hz) was seen, without consistent focality. Epileptiform | | | activity: None. Ictal Activity: No seizures were observed. | | | Clinical Events: No pushbutton events or meteorological technician notes of unusual | | | events. Other variants: Occasional myogenic artifact. | | | Activation: a) HV: Hyperventilation was not performed. b) IPS: | | | During IPS at 1, 3, 6, 8, 10, 12, 15, 20, 30 Hz, symmetric bilateral | | | driving of the occipital rhythms appeared. Extra leads: Single EKG | | | lead showed a normal sinus rhythm. IMPRESSION This EEG is | | | mildly abnormal. Occasional mild diffuse slowing was seen during | | | wakefulness as described above. This may be consistent with a mild | | | global encephalopathy which is nonspecific as to etiology. It is also | | | possible that the slowing could be related in part to drowsiness, as | | | the patient was noted to be drowsy (and sleeping) for much of the | | | recording. No epileptiform activity is seen. No seizures were seen. | | | There was no evidence of status epilepticus. Vazquez Laws M.D. | | | Suggested CPT: 22385 - EEG Routine Awake & Asleep Suggested Dx: | | | 780.39-Convulsions | | + + + documented in this encounter Visit Diagnoses Not on filedocumented in this encounter"
--- OUTSIDE RECORDS SUMMARY | ~2020-02-24 | XMS | Encounter Summary ---
Demographics + + + | Address | [address] | | | [place] [address] | + + + | Home Phone [...] | [facility] | | | and [place] | + + + | Address | Unknown | + + + | Phone | Unavailable | + + + Support + + + + + | Name | Relationship | Address | Phone | + + + + + | [employer] | ECON | [id number] | | | | | Unknown | | + + + + + Care Team Providers + +------+ + | Care Chef & Owner Name | Role | Phone | + [...] S | Dx) | | | | [place], | [place] [address] | | | | | [place] [address] | [phone] | | | | | [phone] | | | +--------+ + + + [...] | | | | | [place] [address] | | | | | | [phone] | | | | | | | | +--------+---------+ + + + | 07/01/ | Office | Sleep Medicine | Jacky Calderon PA | | | 2020 | Visit | | [address] [facility] | | | | | | [place] | | | | | | [address] | | | | | | | [...] | + + + + + | [facility] | [address] | [place] | [phone] | | [facility] | | [address] | | | - IMAGING | | | | + + + + + documented in this encounter Visit Diagnoses + + | Diagnosis | + + | Lung nodule - Primary Solitary pulmonary nodule | + + documented in this encounter"
--- OUTSIDE RECORDS SUMMARY | ~2020-02-24 | XMS | Encounter Summary ---
Demographics + + + | Address | [address] | | | [place] [address] | + + + | Home Phone [...] | [facility] | | | and [place] | + + + | Address | Unknown | + + + | Phone | Unavailable | + + + Support + + + + + | Name | Relationship | Address | Phone | + + + + + | [employer] | ECON | [id number] | | | | | Unknown | | + + + + + Care Team Providers + +------+ + | Care Real Estate Portfolio Manager Name | Role | Phone | [...] | | | | | | [place] [address] | | | | | | [phone] | | | +--------+ + + + [...] | | | | | [place] [address] | | | | | | [phone] | | | | | | | | +--------+---------+ + + + | 04/30/ | Office | Sleep Medicine | Jacky Calderon PA | | | 2019 | Visit | | [address] | | | | | | [place] | | | | | | [address] | | | | | | | [...] eGFR, | 58 (A) | 60 - 090,999 | EXTERNAL | | | External | [...] ST. | [address] | [place], [place] | | | [facility] | | [address] | | | - LABORATORY | [...] | [address] | [place] | | | [facility] | | [address] | | | - LABORATORY | | | | + + + + + documented in this encounter Visit Diagnoses Not on filedocumented in this encounter"
--- OUTSIDE RECORDS SUMMARY | ~2020-02-24 | XMS | Encounter Summary ---
Demographics + + + | Address | [address] | | | [place] [address] | + + + | Home Phone | | + + + | Preferred Language | Unknown | + + + | Marital Status | Single | + + + | Sabianist Affiliation | 1009 | + + + | Race | Unknown | + + + | Ethnic Group | Unknown | + + + Author + + + | Author | [facility] | | | and [place] | + + + | Organization | [facility] | | | and [place] | + + + | Address | Unknown | + + + | Phone | Unavailable | + + + Support + + + + + | Name | Relationship | Address | Phone | + + + + + | [employer] | ECON | [id number] | | | | | Unknown | | + + + + + Care Team Providers + +------+ + | Care Truck Greaser Name | Role | Phone | + [...] | Primary | [place], | [address] | | | | | pulmonary | Vera B, | [place], | | | | | hypertension | MD [address] | [place] | | | | | ([facility]) | [address] | [address] | | | | | Procedures | [place], | Phone: | | | | | ECHO | [place] [address] | [phone] | | | | | Complete [place] | | Fax: | | | | | ECHO HEART | | [phone] | | | | | XTHORACIC,[place] | | | | | | | [address] | | | | | | | [place]OPPLER [place] | | | | | | | [...] | Primary | [place], | [address] | | | | | pulmonary | Vera B, | [place], | | | | | hypertension | MD [address] | [place] | | | | | ([facility]) | [address] | [address] | | | | | Procedures | [place], | Phone: | | | | | ECHO | [place] [address] | [phone] | | | | | Complete [place] | | Fax: | | | | | ECHO HEART | | [phone] | | | | | XTHORACIC,[place] | | | | | | | [address] | | | | | | | [place]OPPL[place] | | | | | | | [...] + + | 03/26/ | Hospital | [facility] | [place], | Primary pulmonary | | 2014 | Encounter | [facility] E[facility] [address] | Vera Farrar MD | hypertension | | | | [place] | [place], | | | | | [place] [address] | Technologist | | | | | [phone] | | | +--------+ + + + [...] + + + +---------+ + + | [place] Starch POWD | by Does not apply [...] + + + +---------+ + + | [place]-3 Fatty | Take by mouth. | | [...] | | | | | [place] [address] | | | | | | [phone] | | | | | | | | +--------+---------+ + + + | 04/30/ | Office | Sleep Medicine | Jacky Calderon PA | | | 2019 | Visit | | [address] | | | | | | [place] | | | | | | [address] | | | | | | | [...] Performed At | + + + | [facility] ECHOCARDIOGRAM REPORT | OLIVA | | STUDY DATE: 03/26/2015 PATIENT NAME: Margarita Rowley : | [facility] | | 1965 PCP: Physician [...] Signed by: Derick Strong, | | | [facility] 03/26/2015 13:52 Automatic Teller Machine Servicer: [place], | | | RDCS, RDMS, RVT | | + + + + + + + + | Performing | Address | City/State/Zipcode | Phone Number | | Organization | | | | + + + + + | [facility] | [address] | [place], [place] | [phone] | | [facility] | | [address] | | | - IMAGING | | [...]
--- OUTSIDE RECORDS SUMMARY | ~2020-02-24 | XMS | Encounter Summary ---
Demographics + + + | Address | [address] | | | [place] [address] | + + + | Home Phone [...] + | Organization | [facility] | | | and [place] | + + + | Address | Unknown | + + + | Phone | Unavailable | + + + Support + + + + + | Name | Relationship | Address | Phone | + + + + + | [employer] | ECON | [id number] | | | | | Unknown | | + + + + + Care Team Providers + +------+ + | Care Director Digital Strategy Name | Role | Phone | + [...] | | | Pulmonology | airway | CLEANING TECHNICIAN [address] | MD | | | | | obstruction, | [address] | | | | | | not | [place], | | | | | | elsewhere | [place] [address] | | | | | | classified | Phone: | | | | | | Procedures | [phone] | | | | | | F/U | Fax: | | | | | | | [phone] | | +--------+--------+ + + + + Encounter Details +--------+---------+ + + + | Date | Type | Department | Care Team | Description | +--------+---------+ + + + | 08/08/ | Office | [facility] [place] | [place], | Primary pulmonary | | 2015 | Visit | PULMONARY [address] | Vera Farrar MD | hypertension | | | | [place], | | (Primary Dx); COPD | | | | [place] [address] | | (chronic obstructive | | | | [phone] | | pulmonary disease); | | | [...] to have a box delivered by the [employer]. Wear the finger probe through the night. Do the test on 5L bled in to th e BiPAP. Call the [employer] to have the box picked up the [...] follow up echocardiogram, which was done in [place] . Since their last visit she feels [...] Years of Education: N/A Occupational History Disabled. [employer] Social History Main Topics Smoking status: Current [...] Concern None Social History Narrative [facility] at [facility]. Allergies: Allergies Allergen Reactions Erythromycin Metronidazole Penicillins [...] TABS Take 2,000 Units by mouth Daily. [place] Starch POWD by Does not apply [...] mg onto the skin every 24 hours. [place]-3 Fatty Acids (SEA-OMEGA 30) 1200 MG CAPS [...] echo in July with visit by local parachute inspector. If further increase in estimated PASP by [...] made to ensure accuracy; however, inadvertent computerized rubber stamp die inspector errors may be pre sent. documented in [...] | | | | | [place] [address] | | | | | | [phone] | | | | | | | | +--------+---------+ + + + | 04/30/ | Office | Sleep Medicine | Jacky Calderon PA | | | 2019 | Visit | | [address] | | | | | | [place] | | | | | | [address] | | | | | | | [...] BNP | 99 | <100 pg/mL | [facility] | | | | | [...] + | [facility] | [address] | [place] | [phone] | | [facility] | | [address] | | | - LABORATORY | | [...] 13 | 7 - 18 mg/dL | [facility] | | | | | | [facility] | | | | | | MEDICAL | | | | | | CENTER - | | | | | | LABORATORY | | + + + + + + | Creatinine | 0.91 | 0.60 - 1.30 | [facility] | | | | | mg/dL | [facility] | | | | | | MEDICAL | | | | | | CENTER - | | | | | | LABORATORY | | + + + + + + | eGFR if not | >60Comment: GLOMERULAR | >=60 | [facility] | | | | FILTRATION | mL/min/1.73m2 | [facility] | | | [place] | RATE,ESTIMATED | | MEDICAL | | | | mL/min/1.25d9Fasu than | | CENTER - | | [...] 3.7 | 3.2 - 5.0 g/dL | [facility] | | | | | | [facility] | | | | | [...] | ine Ratio | | | [facility] | [...] | [facility] | [address] | [place] | [phone] | | [facility] | | [address] | | | - LABORATORY | | [...]
--- OUTSIDE RECORDS SUMMARY | ~2020-02-24 | XMS | Encounter Summary ---
Demographics + + + | Address | [address] | | | [place] [address] | + + + | Home Phone [...] | Organization | [facility] | | | and [place] | + + + | Address | Unknown | + + + | Phone | Unavailable | + + + Support + + + + + | Name | Relationship | Address | Phone | + + + + + | [employer] | ECON | [id number] | | | | | Unknown | | + + + + + Care Team Providers + +------+ + | Care Exhibitions Curator Name | Role | Phone | + +------+ + PCP | Unavailable | + +------+ + Encounter Details +--------+ + + + + | Date | Type | Department | Care Team | Description | +--------+ + + + + | 01/10/ | Hospital | [facility] | Caesar Buitrago | | | 2008 | Encounter | HOSPITAL MED SURG | [address] | | | | | [address] [place] | [facility], | | | | | [place] | [place] [address] | | | | | [address] | [phone] | | | | | [phone] | | | +--------+ + + + [...] | | | | | [place] [address] | | | | | | [phone] | | | | | | | | +--------+---------+ + + + | 04/30/ | Office | Sleep Medicine | Jacky Calderon PA | | | 2020 | Visit | | [address] | | | | | | [place] | | | | | | [address] | | | | | | | | +--------+---------+ + + + documented as of this encounter Visit Diagnoses Not on filedocumented in this encounter"
--- OUTSIDE RECORDS SUMMARY | ~2020-02-24 | XMS | Encounter Summary ---
Demographics + + + | Address | [address] | | | [place] [address] | + + + | Home Phone [...] | Organization | [facility] | | | and [place] | + + + | Address | Unknown | + + + | Phone | Unavailable | + + + Support + + + + + | Name | Relationship | Address | Phone | + + + + + | Projects Horizon | ECON | [id number] | | | | | Unknown | | + + + + + Care Team Providers + +------+ + | Care Websphere Developer Name | Role | Phone | [...] | apnea; Hypoxemia | | | | [place], | | | | | | [place] [address] | | | | | | [phone] | | | +--------+ + + + [...] | | | | | [place] [address] | | | | | | [phone] | | | | | | | | +--------+---------+ + + + | 04/30/ | Office | Sleep Medicine | Jacky Calderon PA | | | 2019 | Visit | | [address] | | | | | | [place] | | | | | | [phone] | | | | | | | | +--------+---------+ + + + documented as of this encounter Visit Diagnoses + + | Diagnosis | + + | Obstructive sleep apnea Obstructive sleep apnea (adult) (pediatric) | + + | Hypoxemia | + + documented in this encounter"
--- OUTSIDE RECORDS SUMMARY | ~2020-02-24 | XMS | Encounter Summary ---
Demographics + + + | Address | [address] | | | [place] [address] | + + + | Home Phone [...] | Organization | [facility] | | | and [place] | + + + | Address | Unknown | + + + | Phone | Unavailable | + + + Support + + + + + | Name | Relationship | Address | Phone | + + + + + | [employer] | ECON | [id number] | | | | | Unknown | | + + + + + Care Team Providers + +------+ + | Care Dragger Name | Role | Phone | + +------+ + | Gela Trimble NP | PCP | | + +------+ + Encounter Details +--------+ + + + + | Date | Type | Department | Care Team | Description | +--------+ + + + + | 12/12/ | [facility] | [facility] | Jacky Calderon PA | | | 2013 | Encounter | MED CTR SLEEP | [address] | | | | | CENTER [address] | [place] | | | | | [place] | [address] | | | | | [address] | | | | | | [phone] | | | +--------+ + + + [...] + + + +---------+ + + | [place] Starch POWD | by Does not apply [...] + + + +---------+ + + | [place]-3 Fatty | Take by mouth. | | [...] | | | | | [place] [address] | | | | | | [phone] | | | | | | | | +--------+---------+ + + + | 04/30/ | Office | Sleep Medicine | Jacky Calderon PA | | | 2019 | Visit | | [address] | | | | | | [place] | | | | | | [address] | | | | | | | | +--------+---------+ + + + documented as of this encounter Visit Diagnoses Not on filedocumented in this encounter"
--- OUTSIDE RECORDS SUMMARY | ~2020-02-24 | XMS | Encounter Summary ---
Demographics + + + | Address | [address] | | | [place] [address] | + + + | Home Phone | | + + + | Preferred Language | Unknown | + + + | Marital Status | Single | + + + | Gnosticism Affiliation | [id number] | + + + [...] [facility] | | | and [place] | + + + | Address | Unknown | + + + | Phone | Unavailable | + + + Support + + + + + | Name | Relationship | Address | Phone | + + + + + | [employer] | ECON | [id number] | | | | | Unknown | | + + + + + Care Team Providers + +------+ + | Care Field Operations Supervisor Name | Role | Phone | + +------+ + | Gela Trimble NP | PCP | | + +------+ + Reason for Visit +---------+ + | Reason | Comments | +---------+ + | Results | labs | +---------+ + Encounter Details +--------+ + + + + | Date | Type | Department | Care Team | Description | +--------+ + + + + | 02// | Telephone | [facility] [place] | Sah[place], | Results (labs) | | 2015 | | PULMONARY [address] | Vera Farrar MD | | | | | [place], | | | | | | [place] [address] | | | | | | [phone] | | | +--------+ + + + [...] | | | | | [place] [address] | | | | | | [phone] | | | | | | | | +--------+---------+ + + + | 04/30/ | Office | Sleep Medicine | Jacky Calderon PA | | | 2020 | Visit | | [address] | | | | | | [place] | | | | | | [address] | | | | | | | | +--------+---------+ + + + documented as of this encounter Visit Diagnoses Not on filedocumented in this encounter"
--- OUTSIDE RECORDS SUMMARY | ~2020-02-24 | XMS | Encounter Summary ---
Demographics + + + | Address | [address] | | | [place] [address] | + + + | Home Phone [...] Organization | [facility] | | | and [place] | + + + | Address | Unknown | + + + | Phone | Unavailable | + + + Support + + + + + | Name | Relationship | Address | Phone | + + + + + | [employer] | ECON | [id number] | | | | | Unknown | | + + + + + Care Team Providers + +------+ + | Care Travel Trailer Components Assembler Name | Role | Phone | + +------+ + | Gela Trimble NP | PCP | | + +------+ + Encounter Details +--------+ + + + + | Date | Type | Department | Care Team | Description | +--------+ + + + + | 06/15/ | Abstract | [facility] [place] | [place]enstein, | COPD (chronic | | 2012 | | PULMONARY [address] | Vera Farrar MD | obstructive | | | | [place], | | pulmonary disease) | | | | [place] [address] | | (HCC) (Primary Dx); | | | | [phone] | | Pulmonary | | | | | | hypertension (HCC); | | | | | | Obstructive sleep | | | | | | apnea; Mental | | | | | | retardation; | | | | | | Hypoxemia | +--------+ + + + + Social [...] + + + | Blood Pressure | 146/70 | 04/24/2013 3:04 PM | | | | | PDT | | + + + + + | Pulse | 76 | 04/24/2013 3:04 PM | | | | | PDT | | + + + + + | Temperature | - | - | | + + + + + | Respiratory Rate | 22 | 04/24/2013 3:04 PM | | | | | PDT | | + + + + + | Oxygen Saturation | 91% | 04/24/2013 3:04 PM | | | | | PDT | | + + + + + | Inhaled Oxygen | - | - | | | Concentration | | | | + + + + + | Weight | 108.4 kg (239 lb) | 04/24/2013 3:04 PM | | | | | PDT | | + + + + + | Height | 149.9 cm (4' 11") | 04/24/2013 3:04 PM | | | | | PDT | | + + + + + | Body Mass Index | 48.27 | 04/24/2013 3:04 PM | | | | | PDT | | + + + + + documented in this encounter Plan of Treatment +--------+---------+ + + + | Date | Type | Specialty | Care Team | Description | +--------+---------+ + + + | 04/16/ | Office | Pulmonology | Helen Astudillo | | | 2019 | Visit | | MD Vikash [address] | | | | | | [address] | | | | | | [place] [address] | | | | | | [phone] | | | | | | | | +--------+---------+ + + + | 04/30/ | Office | Sleep Medicine | Jacky Calderon PA | | | 2019 | Visit | | [address] | | | | | | [place] | | | | | | [address] | | | | | | | | +--------+---------+ + + + documented as of this encounter Visit Diagnoses + + | Diagnosis | + + | COPD (chronic obstructive pulmonary disease) (HCC) - Primary Chronic airway | | obstruction, not elsewhere classified | + + | Pulmonary hypertension (HCC) Other chronic pulmonary heart diseases | + + | Obstructive sleep apnea Obstructive sleep apnea (adult) (pediatric) | + + | Mental retardation Unspecified intellectual disabilities | + + | Hypoxemia | + + documented in this encounter
--- OUTSIDE RECORDS SUMMARY | ~2020-02-24 | XMS | Encounter Summary ---
Demographics + + + | Address | [address] | | | [place] [address] | + + + | Home Phone [...] | Organization | [facility] | | | and [place]am[place] | + + + | Address | Unknown | + + + | Phone | Unavailable | + + + Support + + + + + | Name | Relationship | Address | Phone | + + + + + | [employer] | ECON | [id number] | | | | | Unknown | | + + + + + Care Team Providers + +------+ + | Care Microbiology Lab Analyst Name | Role | Phone | [...] | | | | [address] | [place], [place] | | | | | [place] | [address] | | | | | [address] | [phone] | | | | | [phone] | | | +--------+ + + + [...] | | | | | [place] [address] | | | | | | [phone] | | | | | | | | +--------+---------+ + + + | 04/30/ | Office | Sleep Medicine | Jacky Calderon PA | | | 2020 | Visit | | [address] | | | | | | [place] | | | | | | [address] | | | | | | | | +--------+---------+ + + + documented as of this encounter Visit Diagnoses Not on filedocumented in this encounter"
--- OUTSIDE RECORDS SUMMARY | ~2020-02-24 | XMS | Encounter Summary ---
Demographics + + + | Address | [address] | | | [place] [address] | + + + | Home Phone [...] | Organization | [facility] | | | and [place] | + + + | Address | Unknown | + + + | Phone | Unavailable | + + + Support + + + + + | Name | Relationship | Address | Phone | + + + + + | [employer] | ECON | [id number] | | | | | Unknown | | + + + + + Care Team Providers + +------+ + | Care Svp Digital Sales Food & Cooking Name | Role | Phone | + [...] | oximetry order) | | | | [place], | | | | | | [place] [address] | | | | | | [phone] | | | +--------+ + + + [...] | | | | | [place] [address] | | | | | | [phone] | | | | | | | | +--------+---------+ + + + | 04/30/ | Office | Sleep Medicine | Jacky Calderon PA | | | 2019 | Visit | | [address] | | | | | | [place] | | | | | | [address] | | | | | | | [...]
--- OUTSIDE RECORDS SUMMARY | ~2020-02-24 | XMS | Encounter Summary ---
Demographics + + + | Address | [address] | | | [place] [address] | + + + | Home Phone | | + + + | Preferred Language | Unknown | + + + | Marital Status | Single | + + + | Alevism Affiliation | NRP | + + + | Race | White | + + + | Ethnic Group | Not or | + + + Author + + + | Author | [facility] | + + + | Organization | [facility] | + + + | Address | Unknown | + + + | Phone | Unavailable | + + + Support + + +---------+ + | Name | Relationship | Address | Phone | + + +---------+ + | Lidia Thibodeaux | ECON | Unknown | | + + +---------+ + Care Team Providers + +------+ + | Care Mold Unloader Name | Role | Phone | + [...] [address] | | | | | | [place], [place] | | | | | | [address] | | | +--------+ + + + [...]
--- OUTSIDE RECORDS SUMMARY | ~2020-02-24 | XMS | Encounter Summary ---
Demographics + + + | Address | [address] | | | [place] [address] | + + + | Home Phone [...] Organization | [facility] | | | and [place] | + + + | Address | Unknown | + + + | Phone | Unavailable | + + + Support + + + + + | Name | Relationship | Address | Phone | + + + + + | [employer] | ECON | [id number] | | | | | Unknown | | + + + + + Care Team Providers + +------+ + | Care Staffing Director Name | Role | Phone | [...] | | | Pulmonology | obstructive | [address] | MD | | | | | pulmonary | [address] | | | | | | disease, | [place], | | | | | | unspecified | [place] [address] | | | | | | ([facility]) | Phone: | | | | | | Procedures | [phone] | | | | | | F/U | Fax: | | | | | | | [phone] | | +--------+--------+ + + + + Encounter Details +--------+---------+ + + + | Date | Type | Department | Care Team | Description | +--------+---------+ + + + | 11/07/ | Office | [facility] | Sah[place], | Primary pulmonary | | 2016 | Visit | PULMONARY [address] | Vera Farrar MD | hypertension | | | | [place], | | (Primary Dx); [place] | | | | [place] [address] | | (obstructive sleep | | | | [phone] | | apnea); Hypoxemia; | | | [...] Years of Education: N/A Occupational History Disabled. [employer] Social History Main Topics Smoking status: Current Every Day Smoker -- 1.00 packs/day for 20 years Types: Cigarettes Smokeless tobacco: Never Used Alcohol Use: No Drug Use: No Sexual Activity: None Other Topics Concern None Social History Narrative Lives at [employer]. Allergies: Allergies Allergen Reactions Erythromycin Metronidazole Penicillins [...] TABS Take 2,000 Units by mouth Daily. [place] Starch POWD by Does not apply route [...] mg onto the skin every 24 hours. 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 It shows [...] compliance, not using her oxygen appropriately. * [facility] ([facility]) Pulmonary Function Testing - AMB Referral 2. [...] made to ensure accuracy; however, inadvertent computerized supply chain development manager errors may be pre sent. documented in [...] | | | | | [place] [address] | | | | | | [phone] | | | | | | | | +--------+---------+ + + + | 04/30/ | Office | Sleep Medicine | Jacky Calderon PA | | | 2019 | Visit | | [address] | | | | | | [place] | | | | | | [address] | | | | | | | [...] | 1.02 | 0.60 - 1.30 | [facility] | | | | | mg/dL | [facility] | | | | | | [facility]ICAL | | | | | | CENTER - | | | | | | LABORATORY | | + + + + + + | eGFR if not | 57 (L)Comment: | >=60 | [facility] | | | | GLOMERULAR FILTRATION | mL/min/1.73m2 | [facility] | | | DOMINICAN | RATE,ESTIMATED | | MEDICAL | | | | mL/min/1.53r4Dxww than | | CENTER - | | [...] + | [facility] | [address] | [place] | [phone] | | [facility] | | [address] | | | - LABORATORY | | [...] | | | | M/uL | [facility] | | | | [...] | | | | | | [facility] | | | | | | MEDICAL [...] | Monocytes | | K/uL | [facility] | | | | | | MEDICAL | | | | | | CENTER - | | | | | | LABORATORY | | + +-------+ + + + | Absolute | 0.10 | 0.00 - 0.40 | [facility] | | | Eosinophils | | K/uL | [facility] | [...] [address] | [place] | [phone] | | [facility] | | [address] | | | - LABORATORY | | [...]
--- OUTSIDE RECORDS SUMMARY | ~2020-02-24 | XMS | Encounter Summary ---
Demographics + + + | Address | [address] | | | [place] [address] | + + + | Home Phone [...] Organization | [facility] | | | and [place] | + + + | Address | Unknown | + + + | Phone | Unavailable | + + + Support + + + + + | Name | Relationship | Address | Phone | + + + + + | [employer] | ECON | [phone] | | | | | Unknown | | + + + + + Care Team Providers + +------+ + | Care Log Cooker Name | Role | Phone | + +------+ + | Yuni Shrestha | PCP | | + +------+ + Reason for Visit +---------+ + | Reason | Comments | +---------+ + | Results | nocturnal oximetry | +---------+ + Encounter Details +--------+ + + + + | Date | Type | Department | Care Team | Description | +--------+ + + + + | 08/21/ | Telephone | [facility] | [place], | Results (nocturnal | | 2014 | | PULMONARY [address] | Vera Farrar MD | oximetry) | | | | [place], | | | | | | [place] [address] | | | | | | [phone] | | | +--------+ + + + [...] | | | | | [address] [place] | | | | | | [place] [address] | | | | | | [phone] | | | | | | | | +--------+---------+ + + + | 04/30/ | Office | Sleep Medicine | Jacky Calderon PA | | | 2019 | Visit | | [address] | | | | | | [place] | | | | | | [address] | | | | | | | | +--------+---------+ + + + + + +--------+ + + | Name | Type | Priori | Associated Diagnoses | Order Schedule | | | | ty | | | + + +--------+ + + | Oxygen Therapy | Respiratory | Routin | GLORIA (obstructive | 1 Occurrences | | | Care | e | sleep apnea) | starting 08/21/2015 | | | | | Hypoxemia | until 08/20/2016 | + + +--------+ + + | Pulse oximetry, | Respiratory | Routin | [place] (obstructive | 1 Occurrences | | overnight study | Care | e | sleep apnea) | starting 08/21/2015 | | | | | Hypoxemia | until 08/20/2016 | + + +--------+ + + documented as of this encounter Visit Diagnoses + + | Diagnosis | + + | GLORIA (obstructive sleep apnea) - Primary Obstructive sleep apnea (adult) (pediatric) | + + | Hypoxemia | + + documented in this encounter"
--- OUTSIDE RECORDS SUMMARY | ~2020-02-24 | XMS | Encounter Summary ---
Demographics + + + | Address | [address] | | | [place] [address] | + + + | Home Phone [...] [facility] | | | and [place] | + + + | Address | Unknown | + + + | Phone | Unavailable | + + + Support + + + + + | Name | Relationship | Address | Phone | + + + + + | [employer] | ECON | [id number] | | | | | Unknown | | + + + + + Care Team Providers + +------+ + | Care Provider Network Mgr Name | Role | Phone | + [...] + + | 01/23/ | [facility] | [facility] | Jacky Calderon PA | Primary central | | 2013 | Visit | SLEEP DISORDER [address] | [address] | sleep apnea (Primary | | | | [address] [place] | [place], [place] | Dx) | | | | [place] [address] | [address] | | | | | [phone] | | | +--------+---------+ + + + [...] was: 12/26/2013 date of polysomnography: 03/13/2013 at [facility] AHI: 64.2 O2%: n/a Machine type: Respironics BiPAP Auto with [employer]Brand [employer] Quattro FX full face mask obtained from: [facility] pressure: 16/5 cm with backup rate [...] months, sooner prn. Fifteen minutes were spent [id number] , with the majority of time spent [...] | | | | | [place] [address] | | | | | | [phone] | | | | | | | | +--------+---------+ + + + | 04/30/ | Office | Sleep Medicine | Jacky Calderon PA | | | 2019 | Visit | | [address] | | | | | | [place] | | | | | | [address] | | | | | | | | +--------+---------+ + + + documented as of this encounter Visit Diagnoses + + | Diagnosis | + + | Primary central sleep apnea - Primary | + + documented in this encounter"
--- OUTSIDE RECORDS SUMMARY | ~2020-02-24 | XMS | Encounter Summary ---
Demographics + + + | Address | [address] | | | [place] [address] | + + + | Home Phone [...] Author + + + | Author | [facility] | + + + | Organization | [facility] | + + + | Address | Unknown | + + + | Phone | Unavailable | + + + Support + + +---------+ + | Name | Relationship | Address | Phone | + + +---------+ + | Lidia Thibodeaux | ECON | Unknown | | + + +---------+ + Care Team Providers + +------+ + | Care Candy Maker Helper Name | Role | Phone | [...] [address] | | | | | | [place], [place] | | | | | | [address] | | | +--------+ + + + [...]
--- OUTSIDE RECORDS SUMMARY | ~2020-02-24 | XMS | Encounter Summary ---
Demographics + + + | Address | [address] | | | [place] [address] | + + + | Home Phone [...] | Organization | [facility] | | | and [place] | + + + | Address | Unknown | + + + | Phone | Unavailable | + + + Support + + + + + | Name | Relationship | Address | Phone | + + + + + | [employer] | ECON | [id number] | | | | | Unknown | | + + + + + Care Team Providers + +------+ + | Care Insurance Account Representative Name | Role | Phone | + +------+ + PCP | Unavailable | + +------+ + Encounter Details +--------+ + + + + | Date | Type | Department | Care Team | Description | +--------+ + + + + | 11/19/ | Hospital | [place] | Shady Mcdonald | | | 2009 | Encounter | HOSPITAL XRAY [address] | MD [address] | | | | | [place] | [place], [place] | | | | | [place] | [address] | | | | | [address] | [phone] | | | | | [phone] | | | +--------+ + + + [...] | | | | | [place] [address] | | | | | | [phone] | | | | | | | | +--------+---------+ + + + | 04/30/ | Office | Sleep Medicine | Jacky Calderon PA | | | 2020 | Visit | | [address] | | | | | | [place] | | | | | | [address] | | | | | | | | +--------+---------+ + + + documented as of this encounter Visit Diagnoses Not on filedocumented in this encounter"
--- OUTSIDE RECORDS SUMMARY | ~2020-02-24 | XMS | Encounter Summary ---
Demographics + + + | Address | [address] | | | [place] [address] | + + + | Home Phone [...] | Organization | [facility] | | | and [place] | + + + | Address | Unknown | + + + | Phone | Unavailable | + + + Support + + + + + | Name | Relationship | Address | Phone | + + + + + | [employer] | ECON | [id number] | | | | | Unknown | | + + + + + Care Team Providers + +------+ + | Care Health Careers Instructor Name | Role | Phone | + +------+ + | Gela Trimble NP | PCP | | + +------+ + Encounter Details +--------+ + + + + | Date | Type | Department | Care Team | Description | +--------+ + + + + | 08/27/ | Hospital | [facility] | Saharaenstein, | Primary pulmonary | | 2012 | Encounter | MED CTR LABORATORY | Vera Farrar MD | hypertension (HCC) | | | | [address] | | | | | | [place] | | | | | | [address] | | | | | | [phone] | | | +--------+ + + + [...] | | | | | | | ([facility]) | | | | | | + + + +---------+ + + | buPROPion | Take 100 mg by mouth | | 0 | | | | (WELLBUTRIN) 100 mg | 2 times daily. | | | | 6 | | tablet | | | | | | + + + +---------+ + + | [place] Starch POWD | by Does not apply [...] + + + +---------+ + + | [place]-3 Fatty | Take by mouth. | | [...] | | | | | [place] [address] | | | | | | [phone] | | | | | | | | +--------+---------+ + + + | 04/30/ | Office | Sleep Medicine | Jacky Calderon PA | | | 2019 | Visit | | [address] | | | | | | [place] | | | | | | [id number] | | | | | | | [...] [address] | [place] | [phone] | | [facility] | | [address] | | | - LABORATORY | | | | + + + + + | [facility] | [address] | [place] | | | [facility] | | [address], [facility] | | [...] + | [facility] | [address] | [place], [place] | [phone] | | [facility] | | [address] | | | - LABORATORY | | | | + + + + + | [facility] | [address] | [place], [place] | | | [facility] | | [address] [place] [address] | | | - LABORATORY | | | | + + + + + documented in this encounter Visit Diagnoses + + | Diagnosis | + + | Primary pulmonary hypertension (HCC) Primary pulmonary hypertension | + + documented in this encounter"
--- OUTSIDE RECORDS SUMMARY | ~2020-02-24 | XMS | Encounter Summary ---
Demographics + + + | Address | [address] | | | [place] [address] | + + + | Home Phone [...] Organization | [facility] | | | and [place] | + + + | Address | Unknown | + + + | Phone | Unavailable | + + + Support + + + + + | Name | Relationship | Address | Phone | + + + + + | [employer] | ECON | [phone] | | | | | Unknown | | + + + + + Care Team Providers + +------+ + | Care Rn Disease Management Name | Role | Phone | [...] + + | 10/16/ | Office | [facility] | Jacky Calderon PA | Primary central | | 2012 | Visit | SLEEP DISORDER [address] | [address] | sleep apnea (Primary | | | | [address] | [place], [place] | Dx) | | | | [place] [address] | [address] | | | | | [phone] | | | +--------+---------+ + + + [...] was: 09/25/2013 date of polysomnography: 03/13/2013 at [facility] AHI: 64.2 O2%: n/a Machine type: Respironics BiPAP Auto with ResMed Quattro FX full face mask obtained from: [facility] pressure: 18/14 cm Nights using BiPAP: 2021 average usage (all nights): 6:27 average usage [...] prescription sent to [facility] in [place] by Dr. Lainez had the correct pressures. [facility] in [facility] will make the adjustment to [...] I talked with [facility] in [facility] having her pressures corrected to IPAP 19 cm, EPAP 5 cm and a backup of 8 bpm with 2 L/mi n O2 bled into the system. I will follow up again in 1 month, sooner prn. Fifteen minutes were spent [id number], wi th the majority of time spent in counseling. Jacky Calderon PA-C cc: Gela Trimble, RIVET TESTER-Xiang Lainez MD documented in this enco unter Plan [...] | | | | | [place] [address] | | | | | | [phone] | | | | | | | | +--------+---------+ + + + | 04/30/ | Office | Sleep Medicine | Jacky Calderon PA | | 2019 | Visit | | [address] | | | | | | [place] | | | | | | [address] | | | | | | | | +--------+---------+ + + + documented as of this encounter Visit Diagnoses + + | Diagnosis | + + | Primary central sleep apnea - Primary | + + documented in this encounter"
--- OUTSIDE RECORDS SUMMARY | ~2020-02-24 | XMS | Encounter Summary ---
Demographics + + + | Address | [address] | | | [place] [address] | + + + | Home Phone [...] Organization | [facility] | | | and [place]am[place] | + + + | Address | Unknown | + + + | Phone | Unavailable | + + + Support + + + + + | Name | Relationship | Address | Phone | + + + + + | [employer] | ECON | [phone] | | | | | Unknown | | + + + + + Care Team Providers + +------+ + | Care Access Lead Name | Role | Phone | + +------+ + PCP | Unavailable | + +------+ + Encounter Details +--------+ + + + + | Date | Type | Department | Care Team | Description | +--------+ + + + + | 04/11/ | [facility] | [place] | Edwar Taveras | | | 2011 | Encounter | HOSPITAL EMERGENCY | MD [address] | | | | | C[address] | [facility] | | | | | [address] [place] | [place] [address] | | | | | [address] | [phone] | | | | | [phone] | | | +--------+ + + + [...] | | | | | [place] [address] | | | | | | [phone] | | | | | | | | +--------+---------+ + + + | 04/30/ | Office | Sleep Medicine | Jacky Calderon PA | | | 2020 | Visit | | [address] | | | | | | [place] | | | | | | [address] | | | | | | | | +--------+---------+ + + + documented as of this encounter Visit Diagnoses Not on filedocumented in this encounter"
--- OUTSIDE RECORDS SUMMARY | ~2020-02-24 | XMS | Encounter Summary ---
Demographics + + + | Address | [address] | | | [place] [address] | + + + | Home Phone [...] | Organization | [facility] | | | and [place] | + + + | Address | Unknown | + + + | Phone | Unavailable | + + + Support + + + + + | Name | Relationship | Address | Phone | + + + + + | [employer] | ECON | [phone] | | | | | Unknown | | + + + + + Care Team Providers + +------+ + | Care Evp Marketing Name | Role | Phone | [...] MD | | | | | [place], | | | | | | [place] [address] | | | | | | [phone] | | | +--------+ + + + [...] | | | | | [place] [address] | | | | | | [phone] | | | | | | | | +--------+---------+ + + + | 04/30/ | Office | Sleep Medicine | Jacky Calderon PA | | | 2020 | Visit | | [address] | | | | | | [place] | | | | | | [address] | | | | | | | [...] [address] | [place] | [phone] | | [facility] | | [address] | | | - LABORATORY | | | | + + + + + documented in this encounter Visit Diagnoses Not on filedocumented in this encounter"
--- OUTSIDE RECORDS SUMMARY | ~2020-02-24 | XMS | Encounter Summary ---
Demographics + + + | Address | [address] | | | [place] [address] | + + + | Home Phone [...] Organization | [facility] | | | and [place] | + + + | Address | Unknown | + + + | Phone | Unavailable | + + + Support + + + + + | Name | Relationship | Address | Phone | + + + + + | [employer] | ECON | [phone] | | | | | Unknown | | + + + + + Care Team Providers + +------+ + | Care Universal Banker Name | Role | Phone | + +------+ + | Gela Trimble NP | PCP | | + +------+ + Encounter Details +--------+ + + + + | Date | Type | Department | Care Team | Description | +--------+ + + + + | 09/11/ | Hospital | [facility] | Saharaenstein, | Primary pulmonary | | 2013 | Encounter | MED CTR PULMONARY | Vera Farrar MD | hypertension; COPD | | | | FUNCTION [address] | | (chronic obstructive | | | | [place], | | pulmonary disease); | | | | [place] [address] | | Hypoxemia | | | | [phone] | | | +--------+ + + + [...] | | | | | | | ([facility]) | | | | | | + + + +---------+ + + | buPROPion | Take 100 mg by mouth | | 0 | | | | (WELLBUTRIN) 100 mg | 2 times daily. | | | | 6 | | tablet | | | | | | + + + +---------+ + + | [place] Starch POWD | by Does not apply [...] + + + +---------+ + + | [place]-3 Fatty | Take by mouth. | | [...] | | | | | [place] [address] | | | | | | [phone] | | | | | | | | +--------+---------+ + + + | 04/30/ | Office | Sleep Medicine | Jacky Calderon PA | | | 2019 | Visit | | [address] | | | | | | [place] | | | | | | [address] | | | | | | | [...]
--- OUTSIDE RECORDS SUMMARY | ~2020-02-24 | XMS | Encounter Summary ---
Demographics + + + | Address | [address] | | | [place] [address] | + + + | Home Phone [...] Organization | [facility] | | | and [place]am[place] | + + + | Address | Unknown | + + + | Phone | Unavailable | + + + Support + + + + + | Name | Relationship | Address | Phone | + + + + + | [employer] | ECON | [phone] | | | | | Unknown | | + + + + + Care Team Providers + +------+ + | Care It Technical Specialist Name | Role | Phone | + +------+ + | Yuni Shrestha | PCP | | + +------+ + Reason for Visit + + + | Reason | Comments | + + + | Medical Clearance | | + + + Encounter Details +--------+ + + + + | Date | Type | Department | Care Team | Description | +--------+ + + + + | 06/30/ | Telephone | [facility] | [place], | Medical Clearance | | 2015 | | PULMONARY [address] | Vera Farrar MD | | | | | [place], | | | | | | [place] [address] | | | | | | [phone] | | | +--------+ + + + [...] | | | | | [place] [address] | | | | | | [phone] | | | | | | | | +--------+---------+ + + + | 04/30/ | Office | Sleep Medicine | Jacky Calderon PA | | | 2020 | Visit | | [address] | | | | | | [place] | | | | | | [address] | | | | | | | | +--------+---------+ + + + documented as of this encounter Visit Diagnoses Not on filedocumented in this encounter"
--- OUTSIDE RECORDS SUMMARY | ~2020-02-24 | XMS | Encounter Summary ---
Demographics + + + | Address | [address] | | | [place] [address] | + + + | Home Phone [...] | Organization | [facility] | | | and [place]am[place] | + + + | Address | Unknown | + + + | Phone | Unavailable | + + + Support + + + + + | Name | Relationship | Address | Phone | + + + + + | [employer] | ECON | [id number] | | | | | Unknown | | + + + + + Care Team Providers + +------+ + | Care Infrastructure Developer Name | Role | Phone | [...] | | | Pulmonology | airway | DEPOSIT REFUND CLERK [address] | MD | | | | | obstruction, | | | | | | | not | [address] | | | | | | elsewhere | [place], | | | | | | classified | [place] [address] | | | | | | Obstructive | Phone: | | | | | | sleep apnea | [phone] | | | | | | (adult) | Fax: | | | | | | (pediatric) | [phone] | | | | | | Procedures | | | | | | | AL OFFICE | | | | | | | OUTPATIENT | | | | | | | VISIT 25 | | | | | | | MINUTES F/U | | | +--------+--------+ + + + + Encounter Details +--------+---------+ + + + | Date | Type | Department | Care Team | Description | +--------+---------+ + + + | 09/11/ | Office | [facility] | Offenstein, | Primary pulmonary | | 2014 | Visit | PULMONARY [address] | Vera Farrar MD | hypertension | | | | [place], | | (Primary Dx); COPD | | | | [place] [address] | | (chronic obstructive | | | | [phone] | | pulmonary disease); | | | [...] Years of Education: N/A Occupational History Disabled. [employer] Social History Main Topics Smoking status: Former Smoker -- 1.0 packs/day for 20 years Types: Cigarettes Quit date: 05/14/2013 Smokeless tobacco: None Alcohol Use: Yes Comment: history of abuse Drug Use: Yes Special: Cocaine Comment: history of cocaine use Sexually Active: None Other Topics Concern None Social History Narrative Lives at [employer]. Allergies: Allergies Allergen Reactions Erythromycin Metronidazole Penicillins [...] TABS Take 2,000 Units by mouth Daily. [place] Starch POWD by Does not apply route [...] tablet Take 15 mg by mouth Daily. [place]-3 Fatty Acids (SEA-OMEGA 30) 1200 MG CAPS [...] one extra free meal per month. Otherwise deidra boland will remain on a 1500 calorie diet a day. Plan 1.Continue Letairis 10mg daily. 2.Repeat echocardiogram today. 3.Increase fluids to 2000 cc daily. 4. Allow 2 free meals per month. 5. Continue Qvar twice daily with ProAir as needed. 6. Recheck ambulating oximetry today. 7. Increase walking, 450 feet 6 times weekly. 8. Patient was encouraged to be more ambulatory in general during scotty day. 9. I discontinued her other physical [...] made to ensure accuracy; however, inadvertent computerized traffic routing engineer errors may be pre sent. documented in [...] | | | | | [place] [address] | | | | | | [phone] | | | | | | | | +--------+---------+ + + + | 04/30/ | Office | Sleep Medicine | Jacky Calderon PA | | | 2019 | Visit | | [address] | | | | | | [place] | | | | | | [phone] | | | | | | | [...]
--- OUTSIDE RECORDS SUMMARY | ~2020-02-24 | XMS | Encounter Summary ---
Demographics + + + | Address | [address] | | | [place] [address] | + + + | Home Phone [...] | Organization | [facility] | | | and [place] | + + + | Address | Unknown | + + + | Phone | Unavailable | + + + Support + + + + + | Name | Relationship | Address | Phone | + + + + + | [employer] | ECON | [id number] | | | | | Unknown | | + + + + + Care Team Providers + +------+ + | Care Crusher And Blender Operator Name | Role | Phone | [...] Farrar MD | | | | | [place], | | | | | | [place] [address] | | | | | | [phone] | | | +--------+ + + + [...] | | | | | [place] [address] | | | | | | [phone] | | | | | | | | +--------+---------+ + + + | 04/30/ | Office | Sleep Medicine | Jacky Calderon PA | | | 2020 | Visit | | [address] | | | | | | [place] | | | | | | [address] | | | | | | | | +--------+---------+ + + + documented as of this encounter Visit Diagnoses Not on filedocumented in this encounter"
--- OUTSIDE RECORDS SUMMARY | ~2020-02-24 | XMS | Encounter Summary ---
Demographics + + + | Address | [address] | | | [place] [address] | + + + | Home Phone [...] + + | Organization | [facility] | | | and [place]am[place] | + + + | Address | Unknown | + + + | Phone | Unavailable | + + + Support + + + + + | Name | Relationship | Address | Phone | + + + + + | [employer] | ECON | [phone] | | | | | Unknown | | + + + + + Care Team Providers + +------+ + | Care Heavy Repairer Name | Role | Phone | + [...] | 2017 | | GASTROENTEROLOGY | Varsha MUSIC DIRECTOR [address] | | | | | [address] [place] | [place], [place] [address] | | | | | [address] [place], [place] | [place], [place] | | | | | [address] | [address] | | | | | [phone] | | | +--------+--------+ + + + [...] | | | | | [place] [address] | | | | | | [phone] | | | | | | | [...]
--- OUTSIDE RECORDS SUMMARY | ~2020-02-24 | XMS | Encounter Summary ---
Demographics + + + | Address | [address] | | | [place] [address] | + + + | Home Phone [...] | Organization | [facility] | | | and [place] | + + + | Address | Unknown | + + + | Phone | Unavailable | + + + Support + + + + + | Name | Relationship | Address | Phone | + + + + + | [employer] | ECON | [phone] | | | | | Unknown | | + + + + + Care Team Providers + +------+ + | Care Linen Clerk Name | Role | Phone | [...] + + | 07/26/ | Office | [facility] | Jacky Calderon PA | Primary central | | 2017 | Visit | SLEEP DISORDER [address] | [address] | sleep apnea (Primary | | | | [address] [place] | [place] | Dx) | | | | [place] [address] | [address] | | | | | [phone] | | | +--------+---------+ + + + [...] AM PDTGo to [facility] in [facility] to get a Respironics AmaraView full face mask. Change to [facility] in [place], if not able to get this mask at [facility] in [facility] n. Wear BiPAP 100% of the time asleep. documented in this encounter Progress Notes Jacky Calderon PA - 07/26/2017 10:30 AM PDT Subjective: Patient ID: Margarita Rowley is a 51 y.o. female. HPI last office visit: 07/23/2016 date of polysomnography: 03/13/2013 at [facility] AHI: 64.2 O2%: n/a Machine type: Respironics BiPAP Auto Mask type: ResMed Quattro FX full face mask DME: [facility] in [place] pressure: 16/5 cm with backup rate of [...] She may be interested in us ing [facility] in [place] for her supplies. She says she has had some difficulty with gettin g supplies from [facility] in [place]. She is also napping during the day [...] Assessment: Problem #1: PRIMARY CENTRAL SLEEP APNEA ([id number]) This is controlled with BiPAP and oxygen [...] | | | | | [place] [address] | | | | | | [phone] | | | | | | | | +--------+---------+ + + + | 04/30/ | Office | Sleep Medicine | Jacky Calderon PA | | 2019 | Visit | | [address] | | | | | | [place] | | | | | | [address] | | | | | | | | +--------+---------+ + + + documented as of this encounter Visit Diagnoses + + | Diagnosis | + + | Primary central sleep apnea - Primary | + + documented in this encounter"
--- OUTSIDE RECORDS SUMMARY | ~2020-02-24 | XMS | Encounter Summary ---
Demographics + + + | Address | [address] | | | [place] [address] | + + + | Home Phone [...] | Organization | [facility] | | | and [place] | + + + | Address | Unknown | + + + | Phone | Unavailable | + + + Support + + + + + | Name | Relationship | Address | Phone | + + + + + | [employer] | ECON | [id number] | | | | | Unknown | | + + + + + Care Team Providers + +------+ + | Care Sizing Machine And Drier Operator Name | Role | Phone | [...] | [address] | [place] [address] | | | | | [place] | [phone] | | | | | [address] | | | | | | [phone] | Shady Mcdonald | | | | | | MD [address] | | | | | | [place], [place] | | | | | | [address] | | | | | | [phone] | | | | | | | [...] | | | | | [place] [address] | | | | | | [phone] | | | | | | | [...]
--- OUTSIDE RECORDS SUMMARY | ~2020-02-24 | XMS | Encounter Summary ---
Demographics + + + | Address | [address] | | | [place] [address] | + + + | Home Phone [...] Organization | [facility] | | | and [place] | + + + | Address | Unknown | + + + | Phone | Unavailable | + + + Support + + + + + | Name | Relationship | Address | Phone | + + + + + | [employer] | ECON | [id number] | | | | | Unknown | | + + + + + Care Team Providers + +------+ + | Care Vending Machine Host/Hostess Name | Role | Phone | + [...] [place] | | | | | | [address] | (Fax) | | | | | [phone] | | | +--------+ + + + [...] | | | | | [place] [address] | | | | | | [phone] | | | | | | | | +--------+---------+ + + + | 04/30/ | Office | Sleep Medicine | Jacky Calderon PA | | | 2020 | Visit | | [address] | | | | | | [place] | | | | | | [address] | | | | | | | | +--------+---------+ + + + documented as of this encounter Visit Diagnoses Not on filedocumented in this encounter"
--- OUTSIDE RECORDS SUMMARY | ~2020-02-24 | XMS | Encounter Summary ---
Demographics + + + | Address | [address] | | | [place] [address] | + + + | Home Phone [...] | Organization | [facility] | | | and [place]am[place] | + + + | Address | Unknown | + + + | Phone | Unavailable | + + + Support + + + + + | Name | Relationship | Address | Phone | + + + + + | [employer] | ECON | [phone] | | | | | Unknown | | + + + + + Care Team Providers + +------+ + | Care Lead Man Over All Dies In Pattern Shop Name | Role | Phone | + [...] [place], [place] | | | | | [address] | [address] | | | | | [phone] | [phone] | | | | | | | [...] | | | | | [place] [address] | | | | | | [phone] | | | | | | | [...]
--- OUTSIDE RECORDS SUMMARY | ~2020-02-24 | XMS | Encounter Summary ---
Demographics + + + | Address | [address] | | | [place] [address] | + + + | Home Phone | | + + + | Preferred Language | Unknown | + + + | Marital Status | Single | + + + | Zoroastrian Affiliation | NRP | + + + [...] Team Providers + +------+ + | Care Promotions Intern Name | Role | Phone | + [...] | | | | | n | [facility] | | | | | | [place] [address] | | | | | | [phone] | | | +--------+ + + + [...]
--- OUTSIDE RECORDS SUMMARY | ~2020-02-24 | XMS | Encounter Summary ---
Demographics + + + | Address | [address] | | | [place] [address] | + + + | Home Phone [...] + | Organization | [facility] | | | and [place]am[place] | + + + | Address | Unknown | + + + | Phone | Unavailable | + + + Support + + + + + | Name | Relationship | Address | Phone | + + + + + | [employer] | ECON | [phone] | | | | | Unknown | | + + + + + Care Team Providers + +------+ + | Care Wood Lather Name | Role | Phone | + [...] | | | | | | [place] [address] | | | | | | [phone] | | | +--------+ + + + [...] | | | | | [place] [address] | | | | | | [phone] | | | | | | | | +--------+---------+ + + + | 04/30/ | Office | Sleep Medicine | Jacky Calderon PA | | | 2019 | Visit | | [address] | | | | | | [place] | | | | | | [address] | | | | | | | | +--------+---------+ + + + documented as of this encounter Visit Diagnoses Not on filedocumented in this encounter"
--- OUTSIDE RECORDS SUMMARY | ~2020-02-24 | XMS | Encounter Summary ---
Demographics + + + | Address | [address] | | | [place] [address] | + + + | Home Phone [...] | [facility] | | | and [place]am[place] | + + + | Address | Unknown | + + + | Phone | Unavailable | + + + Support + + + + + | Name | Relationship | Address | Phone | + + + + + | [employer] | ECON | [phone] | | | | | Unknown | | + + + + + Care Team Providers + +------+ + | Care Beauty Culturist Apprentice Name | Role | Phone | + [...] + + | 09/25/ | Office | [facility] | Jacky Calderon PA | Primary central | | 2012 | Visit | SLEEP DISORDER [address] | [address] | sleep apnea (Primary | | | | [address] [place] | [place], [place] | Dx) | | | | [place] [address] | [address] | | | | | [phone] | | | +--------+---------+ + + + [...] was: date of polysomnography: 03/13/2013 at [facility] AHI: 64.2 O2%: n/a Machine type: Respironics BiPAP Auto with ResMed Quattro FX full face mask obtained from: [facility] pressure: 18/14 cm Nights using BiPAP: [...] weeks, sooner prn. Thirty minutes were spent [id number], wit h the majority of time spent [...] | | | | | [place] [address] | | | | | | [phone] | | | | | | | | +--------+---------+ + + + | 04/30/ | Office | Sleep Medicine | Jacky Calderon PA | | | 2019 | Visit | | [address] | | | | | | [place] | | | | | | [address] | | | | | | | | +--------+---------+ + + + documented as of this encounter Visit Diagnoses + + | Diagnosis | + + | Primary central sleep apnea - Primary | + + documented in this encounter"
--- OUTSIDE RECORDS SUMMARY | ~2020-02-24 | XMS | Encounter Summary ---
Demographics + + + | Address | [address] | | | [place] [address] | + + + | Home Phone [...] | Organization | [facility] | | | and [place] | + + + | Address | Unknown | + + + | Phone | Unavailable | + + + Support + + + + + | Name | Relationship | Address | Phone | + + + + + | [employer] | ECON | [phone] | | | | | Unknown | | + + + + + Care Team Providers + +------+ + | Care International Relations Professor Name | Role | Phone | + [...] | | | | | pharyngeal | [address] | [address] | | | | | phase | [address] | [place], [place] | | | | | Procedures | [place], | [address] [place] | | | | | Office Visit | [place] [address] | [place], [place] | | | | | | Phone: | [address] Phone: | | | | | | [phone] | [phone] | | | | | | Fax: | Fax: | | | | | | [phone] | [phone] | +--------+--------+ + + + + Encounter Details +--------+---------+ + + + | Date | Type | Department | Care Team | Description | +--------+---------+ + + + | 01/04/ | Office | [facility] [place] | [place]la, | Dysphagia, | | 2016 | Visit | GASTROENTEROLOGY | Varsha BRITTANY [address] | unspecified | | | | [address] [place] | [place], [place] [address] | dysphagia (Primary | | | | [address] [place], [place] | [place], [place] | Dx); Chronic | | | | [address] | [address] | obstructive | | | | [phone] | | pulmonary disease, | | | | | | unspecified COPD | | | | | | type (HCC); | | | | | | Developmental delay; | | | | | | GLORIA (obstructive | | | | | | sleep apnea); | | | | | | Seizure disorder | | | | | | (HCC) | +--------+---------+ + + + Social [...] Years of Education: N/A Occupational History Disabled. [employer] Social History Main Topics Smoking status: Former Smoker -- 1.00 packs/day for 20 years Types: Cigarettes Quit date: 12/15/2015 Smokeless tobacco: Never Used Comment: Smoking a cigarette every 2 hours Alcohol Use: No Drug Use: No Sexual Activity: Not on file Other Topics Concern Not on file Social History Narrative Lives at [employer]. Review of systems: Constitutional:Denies any fevers, chills, [...] prescribed. Discussed that if PPI is used manager long term care, Calcium an d Vitamin D should be [...] PDTdocumented in this encounter Plan of Treatment +--------+---------+ + + + | Date | Type | Specialty | Care Team | Description | +--------+---------+ + + + | 04/16/ | Office | Pulmonology | Helen Astudillo | | | 2019 | Visit | | MD Vikash [address] | | | | | | [address] | | | | | | [place] [address] | | | | | | [phone] | | | | | | | | +--------+---------+ + + + | 04/30/ | Office | Sleep Medicine | Jacky Calderon PA | | | 2019 | Visit | | [address] [place] [address] | | | | | | [place] | | | | | | [address] | | | | | | | | +--------+---------+ + + + + +---------+--------+ + + | Name | [...]
--- OUTSIDE RECORDS SUMMARY | ~2020-02-24 | XMS | Encounter Summary ---
Demographics + + + | Address | [address] | | | [place] [address] | + + + | Home Phone [...] | Organization | [facility] | | | and [place] | + + + | Address | Unknown | + + + | Phone | Unavailable | + + + Support + + + + + | Name | Relationship | Address | Phone | + + + + + | [employer] | ECON | [id number] | | | | | Unknown | | + + + + + Care Team Providers + +------+ + | Care Animal Care Supervisor Name | Role | Phone | [...] + | 11/20/ | Office | [facility] | Jacky Calderon PA | Primary central | | 2014 | Visit | SLEEP DISORDER [address] | [address] | sleep apnea (Primary | | | | [address] [place] | [place], [place] | Dx) | | | | [place] [address] | [address] | | | | | [phone] | | | +--------+---------+ + + + [...] encounter Progress Notes Jacky Calderon, YUMIKO - 11/20/2013 11:19 AM PST Subjective: Patient ID: Margarita Rowley is a 48 y.o. female. HPI last office visit was: 10/16/2013 date of polysomnography: 03/13/2013 at [facility] AHI: 64.2 O2%: n/a Machine type: Respironics BiPAP Auto with ResMed Quattro FX full face mask obtained from: [facility] pressure: 18/14 cm 19/5 cm Nights using BiPAP: 34/35 average usage (all nights): 6:27 6:15 average usage (nights used): 6:47 6:26 AHI: 11.0 62.5 Jessie comes in for BiPAP compliance. She was referred by Dr. Lainez to help with her pr oblems with leaks and her apnea not being completely controlled. We had [facility] in [place] change her pressure to the original prescription [...] study, sooner prn. Fifteen minutes were spent [id number], with the majority of time spent in [...] | | | | | [place] [address] | | | | | | [phone] | | | | | | | [...]
--- OUTSIDE RECORDS SUMMARY | ~2020-02-24 | XMS | Encounter Summary ---
Demographics + + + | Address | [address] | | | [place] [address] | + + + | Home Phone [...] | [facility] | | | and [place] | + + + | Address | Unknown | + + + | Phone | Unavailable | + + + Support + + + + + | Name | Relationship | Address | Phone | + + + + + | [employer] | ECON | [id number] | | | | | Unknown | | + + + + + Care Team Providers + +------+ + | Care Laborer/Key Man Name | Role | Phone | [...] Farrar MD | | | | | [place], | | | | | | [place] [address] | | | | | | [phone] | | | +--------+ + + + [...] | | | | | [place] [address] | | | | | | [phone] | | | | | | | [...]
--- OUTSIDE RECORDS SUMMARY | ~2020-02-24 | XMS | Encounter Summary ---
Demographics + + + | Address | [address] | | | [place] [address] | + + + | Home Phone [...] | Organization | [facility] | | | and [place] | + + + | Address | Unknown | + + + | Phone | Unavailable | + + + Support + + + + + | Name | Relationship | Address | Phone | + + + + + | [employer] | ECON | [id number] | | | | | Unknown | | + + + + + Care Team Providers + +------+ + | Care Rodeo Rider Name | Role | Phone | + [...] | | [address] [place] | [place], [place] | | | | | [place] | [address] | | | | | [address] | [phone] | | | | | [phone] | | | +--------+ + + + [...] | | | | | [place] [address] | | | | | | [phone] | | | | | | | | +--------+---------+ + + + | 04/30/ | Office | Sleep Medicine | Jacky Calderon PA | | | 2020 | Visit | | [address] | | | | | | [place] | | | | | | [address] | | | | | | | | +--------+---------+ + + + documented as of this encounter Visit Diagnoses Not on filedocumented in this encounter"
--- OUTSIDE RECORDS SUMMARY | ~2020-02-24 | XMS | Encounter Summary ---
Demographics + + + | Address | [address] | | | [place] [address] | + + + | Home Phone [...] | [facility] | | | and [place] | + + + | Address | Unknown | + + + | Phone | Unavailable | + + + Support + + + + + | Name | Relationship | Address | Phone | + + + + + | [employer] | ECON | [id number] | | | | | Unknown | | + + + + + Care Team Providers + +------+ + | Care Content Coordinator Name | Role | Phone | [...] | | | | [address] | [place], [place] | | | | | [place] | [address] | | | | | [address] | [phone] | | | | | [phone] | | | +--------+ + + + [...] | | | | | [place] [address] | | | | | | [phone] | | | | | | | | +--------+---------+ + + + | 04/30/ | Office | Sleep Medicine | Jacky Calderon PA | | | 2020 | Visit | | [address] | | | | | | [place] | | | | | | [address] | | | | | | | | +--------+---------+ + + + documented as of this encounter Visit Diagnoses Not on filedocumented in this encounter"
--- OUTSIDE RECORDS SUMMARY | ~2020-02-24 | XMS | Encounter Summary ---
Demographics + + + | Address | [address] | | | [place] [address] | + + + | Home Phone [...] Organization | [facility] | | | and [place] | + + + | Address | Unknown | + + + | Phone | Unavailable | + + + Support + + + + + | Name | Relationship | Address | Phone | + + + + + | [employer] | ECON | [id number] | | | | | Unknown | | + + + + + Care Team Providers + +------+ + | Care Him Director Name | Role | Phone | + +------+ + | Yuni Shrestha | PCP | | + +------+ + Encounter Details +--------+ + + + + | Date | Type | Department | Care Team | Description | +--------+ + + + + | 02/02/ | Hospital | [facility] | Saharaenstein, | Primary pulmonary | | 2016 | Encounter | MED CTR PULMONARY | Vera Farrar MD | hypertension | | | | FUNCTION [address] | | | | | | [place], | | | | | | [place] [address] | | | | | | [phone] | | | +--------+ + + + [...] + + + +---------+ + + | [place] Starch POWD | by Does not apply [...] + + + +---------+ + + | [place]-3 Fatty | Take by mouth. | | [...] 08/06/20 | | | Therapy Supplies | [facility] office | | | 13 | [...] | | | | | [place] [address] | | | | | | [phone] | | | | | | | | +--------+---------+ + + + | 04/30/ | Office | Sleep Medicine | Jacky Calderon PA | | | 2019 | Visit | | [address] | | | | | | [place] | | | | | | [address] | | | | | | | [...]
--- OUTSIDE RECORDS SUMMARY | ~2020-02-24 | XMS | Encounter Summary ---
Demographics + + + | Address | [address] | | | [place] [address] | + + + | Home Phone [...] | Organization | [facility] | | | and [place] | + + + | Address | Unknown | + + + | Phone | Unavailable | + + + Support + + + + + | Name | Relationship | Address | Phone | + + + + + | [employer] | ECON | [id number] | | | | | Unknown | | + + + + + Care Team Providers + +------+ + | Care Hydraulic Press Tender Name | Role | Phone | + +------+ + | Yuni Shrestha | PCP | | + +------+ + Encounter Details +--------+ + + + + | Date | Type | Department | Care Team | Description | +--------+ + + + + | 02/23/ | Orders Only | [facility] [place] | Tarah Nino, | Pulmonary | | 2018 | | PULMONARY [address] | RN | hypertension (HCC) | | | | [place], | | | | | | [place] [address] | | | | | | [phone] | | | +--------+ + + + [...] | | | | | [place] [address] | | | | | | [phone] | | | | | | | | +--------+---------+ + + + | 04/30/ | Office | Sleep Medicine | Jacky Calderon PA | | | 2019 | Visit | | [address] | | | | | | [place] | | | | | | [address] | | | | | | | | +--------+---------+ + + + documented as of this encounter Visit Diagnoses + + | Diagnosis | + + | Pulmonary hypertension (HCC) Other chronic pulmonary heart diseases | + + documented in this encounter"
--- OUTSIDE RECORDS SUMMARY | ~2020-02-24 | XMS | Encounter Summary ---
Demographics + + + | Address | [address] | | | [place] [address] | + + + | Home Phone [...] + + | Organization | [facility] | | | and [place] | + + + | Address | Unknown | + + + | Phone | Unavailable | + + + Support + + + + + | Name | Relationship | Address | Phone | + + + + + | [employer] | ECON | [id number] | | | | | Unknown | | + + + + + Care Team Providers + +------+ + | Care Rn Patient Services Name | Role | Phone | [...] MD | increase) | | | | [place], | | | | | | [place] [address] | | | | | | [phone] | | | +--------+ + + + [...] | | | | | [place] [address] | | | | | | [phone] | | | | | | | | +--------+---------+ + + + | 04/30/ | Office | Sleep Medicine | Jacky Calderon PA | | | 2019 | Visit | | [address] | | | | | | [place] | | | | | | [address] | | | | | | | | +--------+---------+ + + + documented as of this encounter Visit Diagnoses Not on filedocumented in this encounter"
--- OUTSIDE RECORDS SUMMARY | ~2020-02-24 | XMS | Encounter Summary ---
Demographics + + + | Address | [address] | | | [place] [address] | + + + | Home Phone [...] Organization | [facility] | | | and [place] | + + + | Address | Unknown | + + + | Phone | Unavailable | + + + Support + + + + + | Name | Relationship | Address | Phone | + + + + + | [employer] | ECON | [id number] | | | | | Unknown | | + + + + + Care Team Providers + +------+ + | Care Job Hand Name | Role | Phone | [...] | [address] [place] | [place], [place] [address] | | | | | [address] [place], [place] | [place], [place] | | | | | [address] | [address] | | | | | [phone] | | | +--------+ + + + [...] | | | | | [place] [address] | | | | | | [phone] | | | | | | | | +--------+---------+ + + + | 04/30/ | Office | Sleep Medicine | Jacky aClderon PA | | | 2020 | Visit | | [address] | | | | | | [place] | | | | | | [address] | | | | | | | | +--------+---------+ + + + documented as of this encounter Visit Diagnoses Not on filedocumented in this encounter"
--- OUTSIDE RECORDS SUMMARY | ~2020-02-24 | XMS | Encounter Summary ---
Demographics + + + | Address | [address] | | | [place] [address] | + + + | Home Phone [...] | Organization | [facility] | | | and [place] | + + + | Address | Unknown | + + + | Phone | Unavailable | + + + Support + + + + + | Name | Relationship | Address | Phone | + + + + + | [employer] | ECON | [id number] | | | | | Unknown | | + + + + + Care Team Providers + +------+ + | Care Nursing Home Social Worker Name | Role | Phone | [...] + + | 08/06/ | Office | [facility] [place] | Offenstein, | Pulmonary | | 2012 | Visit | PULMONARY [address] | Vera Farrar MD | hypertension (HCC) | | | | [place], | | (Primary Dx); | | | | [place] [address] | | Obstructive sleep | | | | [phone] | | apnea; COPD (chronic | | [...] MD [place] [facility] [address] [place], [address] [facility] Keo Rowley is a 47 y.o. female patient of Gela Samanop C here today for follow up of pulmonary [...] get an appointment with Dr. Rivera in [place], which is next week. Initially appar ently [...] Years of Education: N/A Occupational History Disabled. [employer] Social History Main Topics Smoking status: Former Smoker -- 1.0 packs/day for 20 years Types: Cigarettes Quit date: 05/14/2013 Smokeless tobacco: None Alcohol Use: Yes history of abuse Drug Use: Yes Special: Cocaine history of cocaine use Sexually Active: None Other Topics Concern None Social History Narrative Lives at [employer]. Allergies: Allergies Allergen Reactions Erythromycin Metronidazole Penicillins [...] Active Take 2,000 Units by mouth Daily. [place] Starch POWD Active by Does not apply [...] patch onto the skin every 24 hours. [place]-3 Fatty Acids (SEA-OMEGA 30) 1200 MG CAPS [...] autoantibody IgG Latest Range: <1.0 AI <0.2 FAN BLADE TRUER Autoantibody Latest Range: <1.0 AI 0.4 ROWLEY [...] sooner with concerns. CC: Gela Guerrero C, PROOF OPERATOR, Lashae Rivera MD Portions of this report were transcribed using voice recognition software. Every effort wa s made to ensure accuracy; however, inadvertent computerized special effects artist errors may be pre sent. documented in [...] | | | | | [place] [address] | | | | | | [phone] | | | | | | | | +--------+---------+ + + + | 04/30/ | Office | Sleep Medicine | Jacky Calderon PA | | | 2019 | Visit | | [address] | | | | | | [place] | | | | | | [address] | | | | | | | [...]
--- OUTSIDE RECORDS SUMMARY | ~2020-02-24 | XMS | Encounter Summary ---
Demographics + + + | Address | [address] | | | [place] [address] | + + + | Home Phone [...] | Organization | [facility] | | | and [place] | + + + | Address | Unknown | + + + | Phone | Unavailable | + + + Support + + + + + | Name | Relationship | Address | Phone | + + + + + | [employer] | ECON | [phone] | | | | | Unknown | | + + + + + Care Team Providers + +------+ + | Care Calciner Operator Name | Role | Phone | [...] Farrar MD | | | | | [place], | | | | | | [place] [address] | | | | | | [phone] | | | +--------+--------+ + + + [...] | | | | | [place] [address] | | | | | | [phone] | | | | | | | | +--------+---------+ + + + | 04/30/ | Office | Sleep Medicine | Jacky Calderon PA | | | 2020 | Visit | | [address] | | | | | | [place] | | | | | | [address] | | | | | | | | +--------+---------+ + + + documented as of this encounter Visit Diagnoses Not on filedocumented in this encounter"
--- OUTSIDE RECORDS SUMMARY | ~2020-02-24 | XMS | Encounter Summary ---
Demographics + + + | Address | [address] | | | [place] [address] | + + + | Home Phone [...] + | Organization | [facility] | | | and [place] | + + + | Address | Unknown | + + + | Phone | Unavailable | + + + Support + + + + + | Name | Relationship | Address | Phone | + + + + + | [employer] | ECON | [phone] | | | | | Unknown | | + + + + + Care Team Providers + +------+ + | Care Displayer Merchandise Name | Role | Phone | + [...] MD | hypertension | | | | [place], | | (Primary Dx); COPD | | | | [place] [address] | | (chronic obstructive | | | | [phone] | | pulmonary disease); | | | [...] appointment to see cardiology, with records from [place]'s ER visit, [facility] I will also get. We will let [...] seeing a neurologist for the tremors in [facility] next week. Her breathing has [...] Years of Education: N/A Occupational History Disabled. [employer] Social History Main Topics Smoking status: Former Smoker -- 1.0 packs/day for 20 years Types: Cigarettes Quit date: 05/14/2013 Smokeless tobacco: None Alcohol Use: Yes Comment: history of abuse Drug Use: Yes Special: Cocaine Comment: history of cocaine use Sexually Active: None Other Topics Concern None Social History Narrative Lives at [employer] [place]. Allergies: Allergies Allergen Reactions Erythromycin Metronidazole Penicillins [...] TABS Take 2,000 Units by mouth Daily. [place] Starch POWD by Does not apply route [...] tablet Take 15 mg by mouth Daily. [place]-3 Fatty Acids (SEA-OMEGA 30) 1200 MG CAPS [...] Letairis. 5. We will get records from [place]'s ER visit, but I did suggest cardiology [...] made to ensure accuracy; however, inadvertent computerized banking center manager errors may be pre sent. Electronically signed [...] | | | | | [place] [address] | | | | | | [phone] | | | | | | | | +--------+---------+ + + + | 04/30/ | Office | Sleep Medicine | Jacky Calderon PA | | | 2019 | Visit | | [address] | | | | | | [place] | | | | | | [address] | | | | | | | [...]
--- OUTSIDE RECORDS SUMMARY | ~2020-02-24 | XMS | Encounter Summary ---
Demographics + + + | Address | [address] | | | [place] [address] | + + + | Home Phone [...] Organization | [facility] | | | and [place] | + + + | Address | Unknown | + + + | Phone | Unavailable | + + + Support + + + + + | Name | Relationship | Address | Phone | + + + + + | [employer] | ECON | [id number] | | | | | Unknown | | + + + + + Care Team Providers + +------+ + | Care Erco Machine Operator Name | Role | Phone [...] | | | | | pharyngeal | SKIVING MACHINE OPERATOR [address] | SKIVING MACHINE OPERATOR [address] | | | | | phase | [address] | [place], [place] | | | | | Procedures | [place], | [address] [place] | | | | | Office Visit | [place] [address] | [place], [place] | | | | | | Phone: | [address] Phone: | | | | | | [phone] | [phone] | | | | | | Fax: | Fax: | | | | | | [phone] | [phone] | +--------+--------+ + + + + Encounter [...] | [address] [place] | [place], [place] [address] | esophagitis presence | | | | [address] [place], [place] | [place], [place] | not specified | | | | [address] | [address] | (Primary Dx); | | | | [phone] | | Esophageal | | | | [...] COPD (chronic obstructive pulmonary disease) ([facility]) moderate, FEV1 1.40 (59%) Pulmonary hypertension (HCC) [...] Years of Education: N/A Occupational History Disabled. [employer] Social History Main Topics Smoking status: Former Smoker -- 1.00 packs/day for 20 years Types: Cigarettes Quit date: 12/15/2015 Smokeless tobacco: Never Used Alcohol Use: No Drug Use: No Sexual Activity: Not on file Other Topics Concern Not on file Social History Narrative Lives at [employer]. Review of systems: Constitutional:Denies any fevers, chills, [...] | | | | | [place] [address] | | | | | | [phone] | | | | | | | [...]
--- OUTSIDE RECORDS SUMMARY | ~2020-02-24 | XMS | Encounter Summary ---
Demographics + + + | Address | [address] | | | [place] [address] | + + + | Home Phone | | + + + | Preferred Language | Unknown | + + + | Marital Status | Single | + + + | Worship Affiliation | NRP | + + + [...] Team Providers + +------+ + | Care Laundry Machine Tender Name | Role | Phone [...] | | | Medicine at | [facility], | | | | | [facility] | [place] [address] | | | | | [address] | [phone] | | | | | [facility] | | | | | | Pavilion, 3rd Floor | | | | | | [place], [place] | | | | | | [address] | | | | | | [phone] | | | +--------+ + + + [...]
--- OUTSIDE RECORDS SUMMARY | ~2020-02-24 | XMS | Encounter Summary ---
Demographics + + + | Address | [address] | | | [place] [address] | + + + | Home Phone | | + + + | Preferred Language | Unknown | + + + | Marital Status | Single | + + + | Jew Affiliation | NRP | + + + | Race | White | + + + | Ethnic Group | Not or | + + + Author + + + | Author | [facility] | + + + | Organization | [facility] | + + + | Address | Unknown | + + + | Phone | Unavailable | + + + Support + + +---------+ + | Name | Relationship | Address | Phone | + + +---------+ + | Lidia Thibodeaux | ECON | Unknown | | + + +---------+ + Care Team Providers + +------+ + | Care Corporate Event Planner Name | Role | Phone | + [...] Pavilion | | | | | | [address] | | | | | | [facility] | | | | | | [place], [address] [place] [address] | | | | | | [place], [place] | | | | | | [address] | | | | | | [phone] | | | +--------+ + + + [...]
--- OUTSIDE RECORDS SUMMARY | ~2020-02-24 | XMS | Encounter Summary ---
Demographics + + + | Address | [address] | | | [place] [address] | + + + | Home Phone [...] | [facility] | | | and [place]am[place] | + + + | Address | Unknown | + + + | Phone | Unavailable | + + + Support + + + + + | Name | Relationship | Address | Phone | + + + + + | [employer] | ECON | [id number] | | | | | Unknown | | + + + + + Care Team Providers + +------+ + | Care Sales Order Specialist Name | Role | Phone | [...] Farrar MD | | | | | [place], | | | | | | [place] [address] | | | | | | [phone] | | | +--------+ + + + [...] 04/16/ | Office | Pulmonology | Helen sAtudillo | | | 2019 | Visit | | MD Vikash [address] | | | | | | [address] | | | | | | [place] [address] | | | | | | [phone] | | | | | | | | +--------+---------+ + + + | 04/30/ | Office | Sleep Medicine | Jacky Calderon PA | | | 2020 | Visit | | [address] | | | | | | [place] | | | | | | [address] | | | | | | | | +--------+---------+ + + + documented as of this encounter Visit Diagnoses Not on filedocumented in this encounter"
--- OUTSIDE RECORDS SUMMARY | ~2020-02-24 | XMS | Clinical Summary ---
Demographics + + + | Address | [address] | | | [place] [address] | + + + | Home Phone | | + + + | Preferred Language | Unknown | + + + | Marital Status | Single | + + + | Caodaism Affiliation | Unknown | + + + | Race | Unknown | + + + | Ethnic Group | Unknown | + + + Author + + + | Author | [facility] (Historical as of | | | 06-16-19) | + + + | Organization | [facility] (Historical as of | | | 06-16-19) [...] [place] | | | | | [address] | | + + + + + | Lidia Thibodeaux | ECON | Unknown | | + + + + + Care Team Providers + +------+ + | Care Health Safety Coordinator Name | Role | Phone | [...] +------+-------+ + | MEDICAID | [place] | [id number] | | | [address] | | | [place] | | | | [place] | | | [place] | | | | [address] | | | FINISH MILL OPERATOR | | | | | + +--------+ [...] | | karlos/Kalpesh | | 1965 | [phone] | [place] [address] | | | jammie | | | [address]: | | | | | | | | | | | | | | [phone] | | | | | | [address] | | + +--------+ +--------+ + +"
--- OUTSIDE RECORDS SUMMARY | ~2020-02-24 | XMS | Encounter Summary ---
Demographics + + + | Address | [address] | | | [place] [address] | + + + | Home Phone [...] | Organization | [facility] | | | and [place] | + + + | Address | Unknown | + + + | Phone | Unavailable | + + + Support + + + + + | Name | Relationship | Address | Phone | + + + + + | [employer] | ECON | [id number] | | | | | Unknown | | + + + + + Care Team Providers + +------+ + | Care Meat Curer Name | Role | Phone | + [...] + + | 05/21/ | Office | [facility] | Jacky Calderon PA | Primary central | | 2014 | Visit | SLEEP DISORDER [address] | [address] | sleep apnea (Primary | | | | [address] [place] | [place], [place] | Dx) | | | | [place] [address] | [address] | | | | | [phone] | | | +--------+---------+ + + + [...] was: 01/23/2014 date of polysomnography: 03/13/2013 at [facility] AHI: 64.2 O2%: n/a Machine type: Respironics BiPAP Auto with [employer] Quattro FX full face mask obtained from: [facility] pressure: 16/5 cm with backup [...] year, sooner prn. Fifteen minutes were spent [id number], with the majority of time spent in [...] | | | | | [place] [address] | | | | | | [phone] | | | | | | | | +--------+---------+ + + + | 04/30/ | Office | Sleep Medicine | Jacky Calderon PA | | | 2019 | Visit | | [address] | | | | | | [place] | | | | | | [address] | | | | | | | | +--------+---------+ + + + documented as of this encounter Visit Diagnoses + + | Diagnosis | + + | Primary central sleep apnea - Primary | + + documented in this encounter"
--- OUTSIDE RECORDS SUMMARY | ~2020-02-24 | XMS | Encounter Summary ---
Demographics + + + | Address | [address] | | | [place] [address] | + + + | Home Phone [...] | [facility] | | | and [place] | + + + | Address | Unknown | + + + | Phone | Unavailable | + + + Support + + + + + | Name | Relationship | Address | Phone | + + + + + | [employer] | ECON | [id number] | | | | | Unknown | | + + + + + Care Team Providers + +------+ + | Care Digital Pre Press Operator Name | Role | Phone [...] + + | 07/26/ | Office | [facility] | Jacky Calderon PA | Primary central | | 2017 | Visit | SLEEP DISORDER [address] | [address] | sleep apnea (Primary | | | | [address] | [place] | Dx) | | | | [place] [address] | [address] | | | | | [phone] | | | +--------+---------+ + + + [...] PDTGo to [facility] in [facility] to get a Respironics AmaraView full face mask. Change to [facility] in [place], if not able to get this mask at [facility] in [facility] n. Wear BiPAP 100% of the [...] FX full face mask DME: [facility] in [place] pressure: 16/5 cm with backup rate of [...] be interested in us ing [facility] in [place] for her supplies. She says she has had some difficulty with gettin g supplies from [facility] in [place]. She is also napping during the day [...] Assessment: Problem #1: PRIMARY CENTRAL SLEEP APNEA ([id number]) This is controlled with BiPAP and oxygen [...] | | | | | [place] [id number] | | | | | | [phone] | | | | | | | | +--------+---------+ + + + | 04/30/ | Office | Sleep Medicine | Jacky Calderon PA | | 2019 | Visit | | [address] | | | | | | [place] | | | | | | [id number] | | | | | | | | +--------+---------+ + + + documented as of this encounter Visit Diagnoses + + | Diagnosis | + + | Primary central sleep apnea - Primary | + + documented in this encounter"
--- OUTSIDE RECORDS SUMMARY | ~2020-02-24 | XMS | Encounter Summary ---
Demographics + + + | Address | [address] | | | [place] [address] | + + + | Home Phone [...] Providers + +------+ + | Care Dog Track Kennel Manager Name | Role | Phone | + +------+ + | Gela Trimble NP | PCP | | + +------+ + Encounter Details +--------+ + + + + | Date | Type | Department | Care Team | Description | +--------+ + + + + | 05/04/ | Results | Stress | Other, Faculty | | | 2012 | Only | Echocardiography | [phone] | | | | | [address] | | | | | | Loop Mailcode: | | | | | | [id number] Outpatient | | | | | | Clinic Building | | | | | | [place], [place] | | | | | | [address] | | | | | | [phone] | | | +--------+ + + + [...] DEPT OF | [address] | [place], [place] | | | CARDIOLOGY | [facility] | [address] | | + + + + + documented in this encounter Visit Diagnoses Not on filedocumented in this encounter"
--- OUTSIDE RECORDS SUMMARY | ~2020-02-24 | XMS | Encounter Summary ---
Demographics + + + | Address | [address] | | | [place] [address] | + + + | Home Phone [...] | Organization | [facility] | | | and [place] | + + + | Address | Unknown | + + + | Phone | Unavailable | + + + Support + + + + + | Name | Relationship | Address | Phone | + + + + + | [employer] | ECON | [id number] | | | | | Unknown | | + + + + + Care Team Providers + +------+ + | Care Pants Busheler Name | Role | Phone | + +------+ + | Yuni Shrestha | PCP | | + +------+ + Encounter Details +--------+ + + + + | Date | Type | Department | Care Team | Description | +--------+ + + + + | 06/30/ | Abstract | [facility] [place] | [facility], | | | 2015 | | GASTROENTEROLOGY | BRITTANY Maddox [address] | | | | | [address] [place] | [place], [place] [address] | | | | | [address] [place], [place] | [place], [place] | | | | | [address] | [address] | | | | | [phone] | | | +--------+ + + + [...] | | | | | [place] [address] | | | | | | [phone] | | | | | | | | +--------+---------+ + + + | 04/30/ | Office | Sleep Medicine | [place], [place], [place] | | | 2020 | Visit | | [address] [place] [address] | | | | | | [place] | | | | | | [address] | | | | | | | | +--------+---------+ + + + documented as of this encounter Procedures + +--------+ + + + | Procedure Name | Priori | Date/Time | Associated Diagnosis | Comments | | | ty | | | | + +--------+ + + + | EXTERNAL LAB: BUN | Routin | 06/10/2016 | | Results for this | | | e | | | procedure are in the | | | | | | results section. | + +--------+ + + + | EXTERNAL LAB: | Routin | 06/10/2016 | | Results for this | | GLUCOSE | e | | | procedure are in the | | | | | | results section. | + +--------+ + + + | EXTERNAL LAB: | Routin | 06/10/2016 | | Results for this | | CALCIUM | e | | | procedure are in the | | | | | | results section. | + +--------+ + + + | EXTERNAL LAB: CARBON | Routin | 06/10/2016 | | Results for this | | DIOXIDE | e | | | procedure are in the | | | | | | results section. | + +--------+ + + + | EXTERNAL LAB: | Routin | 06/10/2016 | | Results for this | | CHLORIDE | e | | | procedure are in the | | | | | | results section. | + +--------+ + + + | EXTERNAL LAB: | Routin | 06/10/2016 | | Results for this | | POTASSIUM | e | | | procedure are in the | | | | | | results section. | + +--------+ + + + | EXTERNAL LAB: SODIUM | Routin | 06/10/2016 | | Results for this | | | e | | | procedure are in the | | | | | | results section. | + +--------+ + + + | EXTERNAL LAB: CBC | Routin | 06/10/2016 | | Results for this | | | e | | | procedure are in the | | | | | | results section. | + +--------+ + + + | EXTERNAL LAB: CBC | Routin | 06/10/2016 | | Results for this | | | e | | | procedure are in the | | | | | | results section. | + +--------+ + + + | EXTERNAL LAB: EGFR | Routin | 06/10/2016 | | Results for this | | | e | | | procedure are in the | | | | | | results section. | + +--------+ + + + | EXTERNAL LAB: | Routin | 06/10/2016 | | Results for this | | CREATININE | e | | | procedure are in the | | | | | | results section. | + +--------+ + + + | CBC WITH | Routin | 06/10/2016 | | Results for this | | DIFFERENTIAL | e | | | procedure are in the | | | | | | results section. | + +--------+ + + + | BASIC METABOLIC | Routin | 06/10/2016 | | Results for this | | PANEL | e | | | procedure are in the | | | | | | results section. | + +--------+ + + + | EXTERNAL LAB: BUN | Routin | 06/09/2016 | | Results for this | | | e | | | procedure are in the | | | | | | results section. | + +--------+ + + + | EXTERNAL LAB: | Routin | 06/09/2016 | | Results for this | | GLUCOSE | e | | | procedure are in the | | | | | | results section. | + +--------+ + + + | EXTERNAL LAB: | Routin | 06/09/2016 | | Results for this | | CALCIUM | e | | | procedure are in the | | | | | | results section. | + +--------+ + + + | EXTERNAL LAB: CARBON | Routin | 06/09/2016 | | Results for this | | DIOXIDE | e | | | procedure are in the | | | | | | results section. | + +--------+ + + + | EXTERNAL LAB: | Routin | 06/09/2016 | | Results for this | | CHLORIDE | e | | | procedure are in the | | | | | | results section. | + +--------+ + + + | EXTERNAL LAB: | Routin | 06/09/2016 | | Results for this | | POTASSIUM | e | | | procedure are in the | | | | | | results section. | + +--------+ + + + | EXTERNAL LAB: SODIUM | Routin | 06/09/2016 | | Results for this | | | e | | | procedure are in the | | | | | | results section. | + +--------+ + + + | EXTERNAL LAB: CBC | Routin | 06/09/2016 | | Results for this | | | e | | | procedure are in the | | | | | | results section. | + +--------+ + + + | EXTERNAL LAB: EGFR | Routin | 06/09/2016 | | Results for this | | | e | | | procedure are in the | | | | | | results section. | + +--------+ + + + | EXTERNAL LAB: | Routin | 06/09/2016 | | Results for this | | CREATININE | e | | | procedure are in the | | | | | | results section. | + +--------+ + + + | CBC WITH | Routin | 06/09/2016 | | Results for this | | DIFFERENTIAL | e | | | procedure are in the | | | | | | results section. | + +--------+ + + + | BASIC METABOLIC | Routin | 06/09/2016 | | Results for this | | PANEL | e | | | procedure are in the | | | | | | results section. | + +--------+ + + + | EXTERNAL LAB: BUN | Routin | 06/08/2016 | | Results for this | | | e | | | procedure are in the | | | | | | results section. | + +--------+ + + + | EXTERNAL LAB: | Routin | 06/08/2016 | | Results for this | | GLUCOSE | e | | | procedure are in the | | | | | | results section. | + +--------+ + + + | EXTERNAL LAB: ALT | Routin | 06/08/2016 | | Results for this | | | e | | | procedure are in the | | | | | | results section. | + +--------+ + + + | EXTERNAL LAB: AST | Routin | 06/08/2016 | | Results for this | | | e | | | procedure are in the | | | | | | results section. | + +--------+ + + + | EXTERNAL LAB: | Routin | 06/08/2016 | | Results for this | | ALKALINE PHOSPHATASE | e | | | procedure are in the | | | | | | results section. | + +--------+ + + + | EXTERNAL LAB: | Routin | 06/08/2016 | | Results for this | | BILIRUBIN, TOTAL | e | | | procedure are in the | | | | | | results section. | + +--------+ + + + | EXTERNAL LAB: | Routin | 06/08/2016 | | Results for this | | ALBUMIN | e | | | procedure are in the | | | | | | results section. | + +--------+ + + + | EXTERNAL LAB: | Routin | 06/08/2016 | | Results for this | | PROTEIN, TOTAL | e | | | procedure are in the | | | | | | results section. | + +--------+ + + + | EXTERNAL LAB: | Routin | 06/08/2016 | | Results for this | | MAGNESIUM | e | | | procedure are in the | | | | | | results section. | + +--------+ + + + | EXTERNAL LAB: | Routin | 06/08/2016 | | Results for this | | CALCIUM | e | | | procedure are in the | | | | | | results section. | + +--------+ + + + | EXTERNAL LAB: CARBON | Routin | 06/08/2016 | | Results for this | | DIOXIDE | e | | | procedure are in the | | | | | | results section. | + +--------+ + + + | EXTERNAL LAB: | Routin | 06/08/2016 | | Results for this | | CHLORIDE | e | | | procedure are in the | | | | | | results section. | + +--------+ + + + | EXTERNAL LAB: | Routin | 06/08/2016 | | Results for this | | POTASSIUM | e | | | procedure are in the | | | | | | results section. | + +--------+ + + + | EXTERNAL LAB: SODIUM | Routin | 06/08/2016 | | Results for this | | | e | | | procedure are in the | | | | | | results section. | + +--------+ + + + | EXTERNAL LAB: CBC | Routin | 06/08/2016 | | Results for this | | | e | | | procedure are in the | | | | | | results section. | + +--------+ + + + | EXTERNAL LAB: TSH | Routin | 06/08/2016 | | Results for this | | | e | | | procedure are in the | | | | | | results section. | + +--------+ + + + | EXTERNAL LAB: EGFR | Routin | 06/08/2016 | | Results for this | | | e | | | procedure are in the | | | | | | results section. | + +--------+ + + + | EXTERNAL LAB: | Routin | 06/08/2016 | | Results for this | | CREATININE | e | | | procedure are in the | | | | | | results section. | + +--------+ + + + | CBC WITH | Routin | 06/08/2016 | | Results for this | | DIFFERENTIAL | e | | | procedure are in the | | | | | | results section. | + +--------+ + + + | COMPREHENSIVE | Routin | 06/08/2016 | | Results for this | | METABOLIC PANEL | e | | | procedure are in the | | | | | | results section. | + +--------+ + + + | EXTERNAL LAB: NHUNG | Routin | 01/06/2016 | | Results for this | | | e | | | procedure are in the | | | | | | results section. | + +--------+ + + + documented in this encounter Results External Lab: NHUNG (06/10/2016) + +--------+ + + + | Component | Value | Ref Range | Performed | Pathologist | | | | | At | Signature | + +--------+ + + + | Neutrophils | 69 | 39 - 80 | EXTERNAL | | | %, | | | LAB | | | External | | | | | + +--------+ + + + | Lymphocytes | 16 (A) | 24 - 44 | EXTERNAL | | | %, | | | LAB | | | External | | | | | + +--------+ + + + | Monocytes | 9 | 0 - 12 | EXTERNAL | | | %, External | | | LAB | | + +--------+ + + + | Eosinophils | 6 | 0 - 6 | EXTERNAL | | | %, | | | LAB | | | External | | | | | + +--------+ + + + + +---------+ + + | Performing | Address | City/State/Zipcode | Phone Number | | Organization | | | | + +---------+ + + | EXTERNAL LAB | | | | + +---------+ + + External Lab: BUN (06/10/2016) + +-------+ + + + | Component | Value | Ref Range | Performed | Pathologist | | | | | At | Signature | + +-------+ + + + | BUN, | 8 | 6 - 23 | EXTERNAL | | | External | | | LAB | | + +-------+ + + + + +---------+ + + | Performing | Address | City/State/Zipcode | Phone Number | | Organization | | | | + +---------+ + + | EXTERNAL LAB | | | | + +---------+ + + External Lab: Glucose (06/10/2016) + +---------+ + + + | Component | Value | Ref Range | Performed | Pathologist | | | | | At | Signature | + +---------+ + + + | Glucose, | 107 (A) | 70 - 100 | EXTERNAL | | | External | | | LAB | | + +---------+ + + + + +---------+ + + | Performing | Address | City/State/Zipcode | Phone Number | | Organization | | | | + +---------+ + + | EXTERNAL LAB | | | | + +---------+ + + External Lab: Calcium (06/10/2016) + +-------+ + + + | Component | Value | Ref Range | Performed | Pathologist | | | | | At | Signature | + +-------+ + + + | Calcium, | 9.1 | 8.4 - 10.2 | EXTERNAL | | | External | | | LAB | | + +-------+ + + + + +---------+ + + | Performing | Address | City/State/Zipcode | Phone Number | | Organization | | | | + +---------+ + + | EXTERNAL LAB | | | | + +---------+ + + External Lab: Carbon Dioxide (06/10/2016) + +-------+ + + + | Component | Value | Ref Range | Performed | Pathologist | | | | | At | Signature | + +-------+ + + + | Carbon | 26 | 19 - 31 | EXTERNAL | | | Dioxide, | | | LAB | | | External | | | | | + +-------+ + + + + +---------+ + + | Performing | Address | City/State/Zipcode | Phone Number | | Organization | | | | + +---------+ + + | EXTERNAL LAB | | | | + +---------+ + + External Lab: Chloride (06/10/2016) + +-------+ + + + | Component | Value | Ref Range | Performed | Pathologist | | | | | At | Signature | + +-------+ + + + | Chloride, | 112 | 95 - 112 | EXTERNAL | | | External | | | LAB | | + +-------+ + + + + +---------+ + + | Performing | Address | City/State/Zipcode | Phone Number | | Organization | | | | + +---------+ + + | EXTERNAL LAB | | | | + +---------+ + + External Lab: Potassium (06/10/2016) + +-------+ + + + | Component | Value | Ref Range | Performed | Pathologist | | | | | At | Signature | + +-------+ + + + | Potassium, | 4.2 | 3.6 - 5.1 | EXTERNAL | | | External | | | LAB | | + +-------+ + + + + +---------+ + + | Performing | Address | City/State/Zipcode | Phone Number | | Organization | | | | + +---------+ + + | EXTERNAL LAB | | | | + +---------+ + + External Lab: Sodium (06/10/2016) + +---------+ + + + | Component | Value | Ref Range | Performed | Pathologist | | | | | At | Signature | + +---------+ + + + | Sodium, | 144 (A) | 132 - 143 | EXTERNAL | | | External | | | LAB | | + +---------+ + + + + +---------+ + + | Performing | Address | City/State/Zipcode | Phone Number | | Organization | | | | + +---------+ + + | EXTERNAL LAB | | | | + +---------+ + + External Lab: CBC (06/10/2016) + + + + + + | Component | Value | Ref Range | Performed | Pathologist | | | | | At | Signature | + + + + + + | WBC, | 7.0 | 4.5 - 11 | EXTERNAL | | | External | | | LAB | | + + + + + + | HGB, | 10.6 (A) | 12 - 16 | EXTERNAL | | | External | | | LAB | | + + + + + + | HCT, | 32.5 (A) | 35 - 45 | EXTERNAL | | | External | | | LAB | | + + + + + + | PLT, | 163 | 140 - 440 | EXTERNAL | | | External | | | LAB | | + + + + + + | RBC, | 3.5 (A) | 3.8 - 5.1 | EXTERNAL | | | External | | | LAB | | + + + + + + | MCV, | 93 | 81 - 99 | EXTERNAL | | | External | | | LAB | | + + + + + + | RDW, | 12.8 | 10.5 - 15 | EXTERNAL | | | External | | | LAB | | + + + + + + + +---------+ + + | Performing | Address | City/State/Zipcode | Phone Number | | Organization | | | | + +---------+ + + | EXTERNAL LAB | | | | + +---------+ + + External Lab: eGFR (06/10/2016) + +-------+ + + + | Component | Value | Ref Range | Performed | Pathologist | | | | | At | Signature | + +-------+ + + + | eGFR, | >60 | 60 - 999,999 | EXTERNAL | | | External | | | LAB | | + +-------+ + + + + + | Specimen | + + | Blood specimen | | (specimen) | + + + +---------+ + + | Performing | Address | City/State/Zipcode | Phone Number | | Organization | | | | + +---------+ + + | EXTERNAL LAB | | | | + +---------+ + + External Lab: Creatinine (06/10/2016) + +-------+ + + + | Component | Value | Ref Range | Performed | Pathologist | | | | | At | Signature | + +-------+ + + + | Creatinine, | 0.91 | 0.7 - 1.33 | EXTERNAL | | | External | | | LAB | | + +-------+ + + + + + | Specimen | + + | Blood specimen | | (specimen) | + + + +---------+ + + | Performing | Address | City/State/Zipcode | Phone Number | | Organization | | | | + +---------+ + + | EXTERNAL LAB | | | | + +---------+ + + CBC with Differential (06/10/2016) + +-------+ + + + | Component | Value | Ref Range | Performed | Pathologist | | | | | At | Signature | + +-------+ + + + | MCH | 30.0 | 26.0 - 33.0 pg | | | + +-------+ + + + | MCHC | 33.0 | 30.0 - 36.0 % | | | + +-------+ + + + | % Basophils | 0.0 | 1.0 % | | | + +-------+ + + + + + | Specimen | + + | Blood specimen | | (specimen) | + + Basic Metabolic Panel (06/10/2016) + +-------+ + + + | Component | Value | Ref Range | Performed | Pathologist | | | | | At | Signature | + +-------+ + + + | Anion Gap | 10 | mmol/L | | | + +-------+ + + + | BUN/Creatin | 8.8 | | | | | ine Ratio | | | | | + +-------+ + + + + + | Specimen | + + | Blood specimen | | (specimen) | + + External Lab: BUN (06/09/2016) + +-------+ + + + | Component | Value | Ref Range | Performed | Pathologist | | | | | At | Signature | + +-------+ + + + | BUN, | 14 | 6 - 23 | EXTERNAL | | | External | | | LAB | | + +-------+ + + + + +---------+ + + | Performing | Address | City/State/Zipcode | Phone Number | | Organization | | | | + +---------+ + + | EXTERNAL LAB | | | | + +---------+ + + External Lab: Glucose (06/09/2016) + +-------+ + + + | Component | Value | Ref Range | Performed | Pathologist | | | | | At | Signature | + +-------+ + + + | Glucose, | 96 | 70 - 100 | EXTERNAL | | | External | | | LAB | | + +-------+ + + + + +---------+ + + | Performing | Address | City/State/Zipcode | Phone Number | | Organization | | | | + +---------+ + + | EXTERNAL LAB | | | | + +---------+ + + External Lab: Calcium (06/09/2016) + +---------+ + + + | Component | Value | Ref Range | Performed | Pathologist | | | | | At | Signature | + +---------+ + + + | Calcium, | 8.2 (A) | 8.4 - 10.2 | EXTERNAL | | | External | | | LAB | | + +---------+ + + + + +---------+ + + | Performing | Address | City/State/Zipcode | Phone Number | | Organization | | | | + +---------+ + + | EXTERNAL LAB | | | | + +---------+ + + External Lab: Carbon Dioxide (06/09/2016) + +-------+ + + + | Component | Value | Ref Range | Performed | Pathologist | | | | | At | Signature | + +-------+ + + + | Carbon | 25 | 19 - 31 | EXTERNAL | | | Dioxide, | | | LAB | | | External | | | | | + +-------+ + + + + +---------+ + + | Performing | Address | City/State/Zipcode | Phone Number | | Organization | | | | + +---------+ + + | EXTERNAL LAB | | | | + +---------+ + + External Lab: Chloride (06/09/2016) + +-------+ + + + | Component | Value | Ref Range | Performed | Pathologist | | | | | At | Signature | + +-------+ + + + | Chloride, | 109 | 95 - 112 | EXTERNAL | | | External | | | LAB | | + +-------+ + + + + +---------+ + + | Performing | Address | City/State/Zipcode | Phone Number | | Organization | | | | + +---------+ + + | EXTERNAL LAB | | | | + +---------+ + + External Lab: Potassium (06/09/2016) + +-------+ + + + | Component | Value | Ref Range | Performed | Pathologist | | | | | At | Signature | + +-------+ + + + | Potassium, | 3.8 | 3.6 - 5.1 | EXTERNAL | | | External | | | LAB | | + +-------+ + + + + +---------+ + + | Performing | Address | City/State/Zipcode | Phone Number | | Organization | | | | + +---------+ + + | EXTERNAL LAB | | | | + +---------+ + + External Lab: Sodium (06/09/2016) + +-------+ + + + | Component | Value | Ref Range | Performed | Pathologist | | | | | At | Signature | + +-------+ + + + | Sodium, | 139 | 132 - 143 | EXTERNAL | | | External | | | LAB | | + +-------+ + + + + +---------+ + + | Performing | Address | City/State/Zipcode | Phone Number | | Organization | | | | + +---------+ + + | EXTERNAL LAB | | | | + +---------+ + + External Lab: CBC (06/09/2016) + + + + + + | Component | Value | Ref Range | Performed | Pathologist | | | | | At | Signature | + + + + + + | WBC, | 7.4 | 4.5 - 11 | EXTERNAL | | | External | | | LAB | | + + + + + + | HGB, | 9.9 (A) | 12 - 16 | EXTERNAL | | | External | | | LAB | | + + + + + + | HCT, | 29.8 (A) | 35 - 45 | EXTERNAL | | | External | | | LAB | | + + + + + + | PLT, | 140 | 140 - 440 | EXTERNAL | | | External | | | LAB | | + + + + + + | Neutrophils | 69 | 39 - 80 | EXTERNAL | | | %, | | | LAB | | | External | | | | | + + + + + + | Lymphocytes | 16 (A) | 24 - 44 | EXTERNAL | | | %, | | | LAB | | | External | | | | | + + + + + + | Monocytes | 10 | 0 - 12 | EXTERNAL | | | %, External | | | LAB | | + + + + + + | Eosinophils | 1 | 0 - 6 | EXTERNAL | | | %, | | | LAB | | | External | | | | | + + + + + + | MCV, | 93 | 81 - 99 | EXTERNAL | | | External | | | LAB | | + + + + + + | RDW, | 12.9 | 10.5 - 15 | EXTERNAL | | | External | | | LAB | | + + + + + + + +---------+ + + | Performing | Address | City/State/Zipcode | Phone Number | | Organization | | | | + +---------+ + + | EXTERNAL LAB | | | | + +---------+ + + External Lab: eGFR (06/09/2016) + +-------+ + + + | Component | Value | Ref Range | Performed | Pathologist | | | | | At | Signature | + +-------+ + + + | eGFR, | >60 | 60 - 999,999 | EXTERNAL | | | External | | | LAB | | + +-------+ + + + + + | Specimen | + + | Blood specimen | | (specimen) | + + + +---------+ + + | Performing | Address | City/State/Zipcode | Phone Number | | Organization | | | | + +---------+ + + | EXTERNAL LAB | | | | + +---------+ + + External Lab: Creatinine (06/09/2016) + +-------+ + + + | Component | Value | Ref Range | Performed | Pathologist | | | | | At | Signature | + +-------+ + + + | Creatinine, | 0.84 | 0.7 - 1.33 | EXTERNAL | | | External | | | LAB | | + +-------+ + + + + + | Specimen | + + | Blood specimen | | (specimen) | + + + +---------+ + + | Performing | Address | City/State/Zipcode | Phone Number | | Organization | | | | + +---------+ + + | EXTERNAL LAB | | | | + +---------+ + + CBC with Differential (06/09/2016) + +-------+ + + + | Component | Value | Ref Range | Performed | Pathologist | | | | | At | Signature | + +-------+ + + + | MCH | 31.0 | 26.0 - 33.0 pg | | | + +-------+ + + + | MCHC | 33.0 | 30.0 - 36.0 % | | | + +-------+ + + + | % Basophils | 0.0 | 1.0 % | | | + +-------+ + + + + + | Specimen | + + | Blood specimen | | (specimen) | + + Basic Metabolic Panel (06/09/2016) + +-------+ + + + | Component | Value | Ref Range | Performed | Pathologist | | | | | At | Signature | + +-------+ + + + | Anion Gap | 9 | mmol/L | | | + +-------+ + + + | BUN/Creatin | 16.7 | | | | | ine Ratio | | | | | + +-------+ + + + + + | Specimen | + + | Blood specimen | | (specimen) | + + External Lab: BUN (06/08/2016) + +-------+ + + + | Component | Value | Ref Range | Performed | Pathologist | | | | | At | Signature | + +-------+ + + + | BUN, | 22 | 6 - 23 | EXTERNAL | | | External | | | LAB | | + +-------+ + + + + +---------+ + + | Performing | Address | City/State/Zipcode | Phone Number | | Organization | | | | + +---------+ + + | EXTERNAL LAB | | | | + +---------+ + + External Lab: Glucose (06/08/2016) + +-------+ + + + | Component | Value | Ref Range | Performed | Pathologist | | | | | At | Signature | + +-------+ + + + | Glucose, | 99 | 70 - 100 | EXTERNAL | | | External | | | LAB | | + +-------+ + + + + +---------+ + + | Performing | Address | City/State/Zipcode | Phone Number | | Organization | | | | + +---------+ + + | EXTERNAL LAB | | | | + +---------+ + + External Lab: ALT (06/08/2016) + +-------+ + + + | Component | Value | Ref Range | Performed | Pathologist | | | | | At | Signature | + +-------+ + + + | ALT, | 8 | 7 - 52 | EXTERNAL | | | External | | | LAB | | + +-------+ + + + + +---------+ + + | Performing | Address | City/State/Zipcode | Phone Number | | Organization | | | | + +---------+ + + | EXTERNAL LAB | | | | + +---------+ + + External Lab: AST (06/08/2016) + +-------+ + + + | Component | Value | Ref Range | Performed | Pathologist | | | | | At | Signature | + +-------+ + + + | AST, | 15 | 13 - 39 | EXTERNAL | | | External | | | LAB | | + +-------+ + + + + +---------+ + + | Performing | Address | City/State/Zipcode | Phone Number | | Organization | | | | + +---------+ + + | EXTERNAL LAB | | | | + +---------+ + + External Lab: Alkaline Phosphatase (06/08/2016) + +-------+ + + + | Component | Value | Ref Range | Performed | Pathologist | | | | | At | Signature | + +-------+ + + + | ALP, | 40 | 30 - 128 | EXTERNAL | | | External | | | LAB | | + +-------+ + + + + +---------+ + + | Performing | Address | City/State/Zipcode | Phone Number | | Organization | | | | + +---------+ + + | EXTERNAL LAB | | | | + +---------+ + + External Lab: Bilirubin, Total (06/08/2016) + +-------+ + + + | Component | Value | Ref Range | Performed | Pathologist | | | | | At | Signature | + +-------+ + + + | Bilirubin, | 0.4 | 0 - 1.2 | EXTERNAL | | | Total, | | | LAB | | | External | | | | | + +-------+ + + + + +---------+ + + | Performing | Address | City/State/Zipcode | Phone Number | | Organization | | | | + +---------+ + + | EXTERNAL LAB | | | | + +---------+ + + External Lab: Albumin (06/08/2016) + +-------+ + + + | Component | Value | Ref Range | Performed | Pathologist | | | | | At | Signature | + +-------+ + + + | Albumin, | 3.5 | 3.5 - 5 | EXTERNAL | | | External | | | LAB | | + +-------+ + + + + +---------+ + + | Performing | Address | City/State/Zipcode | Phone Number | | Organization | | | | + +---------+ + + | EXTERNAL LAB | | | | + +---------+ + + External Lab: Protein, Total (06/08/2016) + +-------+ + + + | Component | Value | Ref Range | Performed | Pathologist | | | | | At | Signature | + +-------+ + + + | Protein, | 7.1 | 6 - 8 | EXTERNAL | | | Total, | | | LAB | | | External | | | | | + +-------+ + + + + +---------+ + + | Performing | Address | City/State/Zipcode | Phone Number | | Organization | | | | + +---------+ + + | EXTERNAL LAB | | | | + +---------+ + + External Lab: Magnesium (06/08/2016) + +-------+ + + + | Component | Value | Ref Range | Performed | Pathologist | | | | | At | Signature | + +-------+ + + + | Magnesium, | 2.0 | 1.7 - 2.5 | EXTERNAL | | | External | | | LAB | | + +-------+ + + + + +---------+ + + | Performing | Address | City/State/Zipcode | Phone Number | | Organization | | | | + +---------+ + + | EXTERNAL LAB | | | | + +---------+ + + External Lab: Calcium (06/08/2016) + +-------+ + + + | Component | Value | Ref Range | Performed | Pathologist | | | | | At | Signature | + +-------+ + + + | Calcium, | 9.1 | 8.4 - 10.2 | EXTERNAL | | | External | | | LAB | | + +-------+ + + + + +---------+ + + | Performing | Address | City/State/Zipcode | Phone Number | | Organization | | | | + +---------+ + + | EXTERNAL LAB | | | | + +---------+ + + External Lab: Carbon Dioxide (06/08/2016) + +-------+ + + + | Component | Value | Ref Range | Performed | Pathologist | | | | | At | Signature | + +-------+ + + + | Carbon | 27 | 19 - 31 | EXTERNAL | | | Dioxide, | | | LAB | | | External | | | | | + +-------+ + + + + +---------+ + + | Performing | Address | City/State/Zipcode | Phone Number | | Organization | | | | + +---------+ + + | EXTERNAL LAB | | | | + +---------+ + + External Lab: Chloride (06/08/2016) + +-------+ + + + | Component | Value | Ref Range | Performed | Pathologist | | | | | At | Signature | + +-------+ + + + | Chloride, | 100 | 95 - 112 | EXTERNAL | | | External | | | LAB | | + +-------+ + + + + +---------+ + + | Performing | Address | City/State/Zipcode | Phone Number | | Organization | | | | + +---------+ + + | EXTERNAL LAB | | | | + +---------+ + + External Lab: Potassium (06/08/2016) + +-------+ + + + | Component | Value | Ref Range | Performed | Pathologist | | | | | At | Signature | + +-------+ + + + | Potassium, | 4.3 | 3.6 - 5.1 | EXTERNAL | | | External | | | LAB | | + +-------+ + + + + +---------+ + + | Performing | Address | City/State/Zipcode | Phone Number | | Organization | | | | + +---------+ + + | EXTERNAL LAB | | | | + +---------+ + + External Lab: Sodium (06/08/2016) + +-------+ + + + | Component | Value | Ref Range | Performed | Pathologist | | | | | At | Signature | + +-------+ + + + | Sodium, | 136 | 132 - 143 | EXTERNAL | | | External | | | LAB | | + +-------+ + + + + +---------+ + + | Performing | Address | City/State/Zipcode | Phone Number | | Organization | | | | + +---------+ + + | EXTERNAL LAB | | | | + +---------+ + + External Lab: CBC (06/08/2016) + + + + + + | Component | Value | Ref Range | Performed | Pathologist | | | | | At | Signature | + + + + + + | WBC, | 10.8 | 4.5 - 11 | EXTERNAL | | | External | | | LAB | | + + + + + + | HGB, | 11.4 (A) | 12 - 16 | EXTERNAL | | | External | | | LAB | | + + + + + + | HCT, | 33.8 (A) | 35 - 45 | EXTERNAL | | | External | | | LAB | | + + + + + + | PLT, | 174 | 140 - 440 | EXTERNAL | | | External | | | LAB | | + + + + + + | Neutrophils | 68 | 39 - 80 | EXTERNAL | | | %, | | | LAB | | | External | | | | | + + + + + + | Lymphocytes | 11 (A) | 24 - 44 | EXTERNAL | | | %, | | | LAB | | | External | | | | | + + + + + + | Monocytes | 15 (A) | 0 - 12 | EXTERNAL | | | %, External | | | LAB | | + + + + + + | Eosinophils | 0 | 0 - 6 | EXTERNAL | | | %, | | | LAB | | | External | | | | | + + + + + + | RBC, | 3.68 (A) | 3.8 - 5.1 | EXTERNAL | | | External | | | LAB | | + + + + + + | MCV, | 92 | 81 - 99 | EXTERNAL | | | External | | | LAB | | + + + + + + | RDW, | 12.7 | 10.5 - 15 | EXTERNAL | | | External | | | LAB | | + + + + + + + +---------+ + + | Performing | Address | City/State/Zipcode | Phone Number | | Organization | | | | + +---------+ + + | EXTERNAL LAB | | | | + +---------+ + + External Lab: TSH (06/08/2016) + + + + + + | Component | Value | Ref Range | Performed | Pathologist | | | | | At | Signature | + + + + + + | TSH, | 0.135 (A)Comment: 3rd | 0.27 - 4.2 | EXTERNAL | | | External | generation | | LAB | | + + + + + + + + | Specimen | + + | Blood specimen | | (specimen) | + + + +---------+ + + | Performing | Address | City/State/Zipcode | Phone Number | | Organization | | | | + +---------+ + + | EXTERNAL LAB | | | | + +---------+ + + External Lab: eGFR (06/08/2016) + +--------+ + + + | Component | Value | Ref Range | Performed | Pathologist | | | | | At | Signature | + +--------+ + + + | eGFR, | 51 (A) | 60 - 999,999 | EXTERNAL | | | External | | | LAB | | + +--------+ + + + + + | Specimen | + + | Blood specimen | | (specimen) | + + + +---------+ + + | Performing | Address | City/State/Zipcode | Phone Number | | Organization | | | | + +---------+ + + | EXTERNAL LAB | | | | + +---------+ + + External Lab: Creatinine (06/08/2016) + +-------+ + + + | Component | Value | Ref Range | Performed | Pathologist | | | | | At | Signature | + +-------+ + + + | Creatinine, | 1.12 | 0.7 - 1.33 | EXTERNAL | | | External | | | LAB | | + +-------+ + + + + + | Specimen | + + | Blood specimen | | (specimen) | + + + +---------+ + + | Performing | Address | City/State/Zipcode | Phone Number | | Organization | | | | + +---------+ + + | EXTERNAL LAB | | | | + +---------+ + + CBC with Differential (06/08/2016) + +-------+ + + + | Component | Value | Ref Range | Performed | Pathologist | | | | | At | Signature | + +-------+ + + + | MCH | 31.0 | 26.0 - 33.0 pg | | | + +-------+ + + + | MCHC | 34.0 | 30.0 - 36.0 % | | | + +-------+ + + + | % Basophils | 1.0 | 1.0 % | | | + +-------+ + + + + + | Specimen | + + | Blood specimen | | (specimen) | + + Comprehensive Metabolic Panel (06/08/2016) + +---------+ + + + | Component | Value | Ref Range | Performed | Pathologist | | | | | At | Signature | + +---------+ + + + | Anion Gap | 13 | mmol/L | | | + +---------+ + + + | BUN/Creatin | 19.6 | | | | | ine Ratio | | | | | + +---------+ + + + | Globulin | 3.6 (A) | 1.8 - 3.5 | | | + +---------+ + + + | Albumin/Clarice | 1.0 (A) | 1.1 - 2.4 | | | | bulin Ratio | | | | | + +---------+ + + + | Lactate, | 1.1 | | | | | Serum | | | | | + +---------+ + + + + + | Specimen | + + | Blood specimen | | (specimen) | + + External Lab: CBC (01/06/2016) + + + + + + | Component | Value | Ref Range | Performed | Pathologist | | | | | At | Signature | + + + + + + | RBC, | 3.21 (A) | 3.8 - 5.1 | EXTERNAL | | | External | | | LAB | | + + + + + + + +---------+ + + | Performing | Address | City/State/Zipcode | Phone Number | | Organization | | | | + +---------+ + + | EXTERNAL LAB | | | | + +---------+ + + documented in this encounter Visit Diagnoses Not on filedocumented in this encounter"
--- OUTSIDE RECORDS SUMMARY | ~2020-02-24 | XMS | Encounter Summary ---
Demographics + + + | Address | [address] | | | [place] [address] | + + + | Home Phone [...] | [facility] | | | and [place] | + + + | Address | Unknown | + + + | Phone | Unavailable | + + + Support + + + + + | Name | Relationship | Address | Phone | + + + + + | [employer] | [place] | [id number] | | | | | Unknown | | + + + + + Care Team Providers + +------+ + | Care Hand Fretted Instrument Maker Name | Role | Phone | + +------+ + | Gela Trimble NP | PCP | | + +------+ + Encounter Details +--------+ + + + + | Date | Type | Department | Care Team | Description | +--------+ + + + + | 07/04/ | Hospital | [facility] | [place], | Pulmonary | | 2012 | Encounter | MED CTR GENERIC OP | Vera Farrar MD | hypertension (HCC) | | | | CONV DEPT [address] | | | | | | [address] [place], | | | | | | [place] [address] | | | | | | [phone] | | | +--------+ + + + [...] | + + + +---------+--------+ + | Allons-3 Fatty | Take by mouth. | | [...] | | | | | [place] [address] | | | | | | [phone] | | | | | | | | +--------+---------+ + + + | 04/30/ | Office | Sleep Medicine | Jacky Calderon PA | | | 2020 | Visit | | [address] | | | | | | [place] | | | | | | [address] | | | | | | | [...] 07/04/2013 | + +------+--------+ + + | PARAKEET RAISER Ab, IgG | Lab | Routin | [...] | | | | [place] [address] [place] | | | | | | [id number] [place]: | | | | | | [id number] | | | | + + + + + + + + | Specimen | + + | | + + + + + + + | Performing | Address | City[facility] | Phone Number | | Organization | | | | + + + + + | [facility] | [address] | [place] | [phone] | | [facility] | | [address] | | | - LABORATORY | | | | + + + + + | [facility] | [address] | [place] | | | [facility] | | [address], [facility] | | [...] | autoantibod | Testing Performed: | | [facility] | | | y IgG | [facility], [address], | | MEDICAL | | | | [place] [address] | | CENTER - | | | | CLIA: [id number] | | LABORATORY | | + + + + + + + + | Specimen | + + | | + + + + + + + | Performing | Address | City/State/Zipcode | Phone Number | | Organization | | | | + + + + + | [facility] | [address] | [place] | [phone] | | [facility] | | [address] | | | - LABORATORY | | | | + + + + + | [facility] | [address] | [place] | | | [facility] | | [address] [place] [address] | | | - LABORATORY | | [...] | | MEDICAL | | | | [place] [address] | | CENTER - | | | | CLIA: [id number] | | LABORATORY | | + + + + + + + + | Specimen | + + | | + + + + + + + | Performing | Address | City/State/Zipcode | Phone Number | | Organization | | | | + + + + + | [facility] | [address] | [place] | [phone] | | [facility] | | [address] | | | - LABORATORY | | | | + + + + + | [facility] | [address] | [place], [place] | | | [facility] | | [id number] | | | - LABORATORY | | [...] | | MEDICAL | | | | [place] [address] | | CENTER - | | | | [place]: [id number] | | LABORATORY | | + + + + + + + + | Specimen | + + | | + + + + + + + | Performing | Address | City/State/Zipcode | Phone Number | | Organization | | | | + + + + + | [facility] | [address] | [place], [place] | [phone] | | [facility] | | [address] | | | - LABORATORY | | | | + + + + + | [facility] | [address] | [place] | | | [facility] | | [address] | | | - LABORATORY | | [...] - | | | | [place] [address] | | LABORATORY | | | | CLIA: [id number] | | | | + + + + + + + + | Specimen | + + | | + + + + + + + | Performing | Address | City/State/Zipcode | Phone Number | | Organization | | | | + + + + + | [facility] | [address] | [place], [place] | [phone] | | [facility] | | [address] | | | - LABORATORY | | | | + + + + + | [facility] | [address] | [place] | | | [facility] | | [address] [place] [address] | | | - LABORATORY | | [...] | MEDICAL | | | | [place] [id number] | | CENTER - | | | | CLIA: [id number] | | LABORATORY | | + + + + + + | PARAKEET RAISER | 0.4Comment: Negative | <1.0 AI | [facility] | | | Autoantibod | Testing Performed: | | [facility] | | | y | [place], [address], | | MEDICAL | | | | [place] [address] | | CENTER - | | | | CLIA: [id number] | | LABORATORY | | + + + + + + | SMRNP | <0.2Comment: Negative | <1.0 AI | [facility] | | | Autoantibod | Testing Performed: | | [facility] | | | y | [place], [address], | | MEDICAL | | | | [place] [address] | | CENTER - | | | | CLIA: [id number] | | LABORATORY | | + + + + + + + + | Specimen | + + | | + + + + + + + | Performing | Address | City/State/Zipcode | Phone Number | | Organization | | | | + + + + + | [facility] | [address] | [place] | [phone] | | [facility] | | [address] | | | - LABORATORY | | | | + + + + + | [facility] | [address] | [place] | | | [facility] | | [address], [facility] | | [...] | | | INTERVAL: Aldolase | | [facility] | | | | Access complete set of | | MEDICAL | | | | age- and/or | | CENTER - | | | | gender-specific | | LABORATORY | | | | reference intervals | | | | | | for this test in the | | | | | | [facility] | | | | | | Directory ([employer]). | | | | | | Testing Performed: | | | | | | ARLONI, [address], | | | | | | [place], [place] | | | | | | [address] CLIA: | | | | | | [id number] | | | | + + + + + + + + | Specimen | + + | | + + + + + + + | Performing | Address | City/State/[facility] | Phone Number | | Organization | | | | + + + + + | [facility] | [address] | [place] | [phone] | | [facility] | | [address] | | | - LABORATORY | | | | + + + + + | [facility] | [address] | [place] | | | [facility] | | [address], [facility] | | [...] | | MEDICAL | | | | [address] CLIA: [id number] | | CENTER - | | | | | | LABORATORY | | + + + + + + + + | Specimen | + + | | + + + + + + + | Performing | Address | City/State/Zipcode | Phone Number | | Organization | | | | + + + + + | [facility] | [address] | [place], [place] | [phone] | | [facility] | | [address] | | | - LABORATORY | | | | + + + + + | [facility] | [address] | [place], [place] | | | [facility] | | [address], [facility] | | [...] + | [facility] | [address] | [place] | [phone] | | [facility] | | [address] | | | - LABORATORY | | | | + + + + + | [facility] | [address] | [place], [place] | | | [facility] | | [address], [facility] | | [...] | | MEDICAL | | | | [id number]: [id number] | | CENTER - | | | [address] | [place] | [phone] | | [facility] | | [address] | | | - LABORATORY | | | | + + + + + | [facility] | [address] | [place], [place] | | | [facility] | | [id number] | | | - LABORATORY | | [...] + | [facility] | [address] | [place], [place] | [phone] | | [facility] | | [address] | | | - LABORATORY | | | | + + + + + | [facility] | [address] | [place], [place] | | | [facility] | | [address] [place] [address] | | | - LABORATORY | | | | + + + + + documented in this encounter Visit Diagnoses + + | Diagnosis | + + | Pulmonary hypertension (HCC) Other chronic pulmonary heart diseases | + + documented in this encounter"
--- OUTSIDE RECORDS SUMMARY | ~2020-02-24 | XMS | Encounter Summary ---
Demographics + + + | Address | [address] | | | [place] [address] | + + + | Home Phone [...] Organization | [facility] | | | and [place] | + + + | Address | Unknown | + + + | Phone | Unavailable | + + + Support + + + + + | Name | Relationship | Address | Phone | + + + + + | [employer] | [place] | [id number] | | | | | Unknown | | + + + + + Care Team Providers + +------+ + | Care Metalizer Name | Role | Phone | + +------+ + | Gela Trimble INDUSTRIAL SERVICES WORKER | PCP | | + +------+ + [...] | | hypertension | Vera Farrar, | MD [address] | | | | | ([facility]) | MD [address] | | | | | | [address] | [address] | | | | | | [place], | [place], [place] | | | | | | [place] [address] | [address] Phone: | | | | | | | [phone] | | | | | | | Fax: | | | | | | | [phone] | +--------+ + + + + + [...] | | MD [address] | | | | | [address] | [place], | | | | | | [place], | [place] [address] | | | | | | [place] [address] | Phone: | | | | | | | [phone] | | | | | | | Fax: | | | | | | | [phone] | +--------+ + + + + + [...] | Services | Disease | Pulmonary | Fatou | Lashae Sutherland, | | | Required | | hypertension | Vera Farrar, | [address] | | | | | ([facility]) | [address] | | | | | [address] | [address] | | | | | | [place], | [place], [place] | | | | | | [place] [address] | [address] Phone: | | | | | | | [phone] | | | | | | | Fax: | | | | | | | [phone] | +--------+ + + + + + Encounter Details +--------+---------+ + + + | Date | Type | Department | Care Team | Description | +--------+---------+ + + + | 07/04/ | Office | [facility] | [place], | Pulmonary | | 2012 | Visit | PULMONARY [address] | Vera Farrar MD | hypertension ([facility]) | | | | [place], | | (Primary Dx); [place] | | | | [place] [address] | | (obstructive sleep | | | | [phone] | | apnea); Hypoxemia; | | | | | | COPD (chronic | | | | | | obstructive | | | | | | pulmonary disease) | | | | | | ([facility]); Congestive | | | | | | heart failure with | | | | | | LV diastolic | | | | | | dysfunction, NYHA | | | | | | class 3 ([facility]); | | | | | | History [...] nt from the original. Pulmonary Consult Note MD [place] [facility] [address] [place], [address] Referring Provider: Nai Otoole, Gela FELICIANO Margarita Rowley is a 47 y.o. y.o. female patient [...] and chest pain. She was taken to [facility] and underwent evaluation there. She does not [...] pre hospitalization work up either. While at [facility], she had a right heart cath done. [...] factors for HIV. She was tested at [facility] as well. Past Medical History Past Medical [...] Years of Education: N/A Occupational History Disabled. [employer] Social History Main Topics Smoking status: Former Smoker -- 1.0 packs/day for 20 years Types: Cigarettes Quit date: 05/14/2013 Smokeless tobacco: None Alcohol Use: Yes history of abuse Drug Use: Yes Special: Cocaine history of cocaine use Sexually Active: None Other Topics Concern None Social History Narrative Lives at [employer]. Allergies: Allergies Allergen Reactions Erythromycin Metronidazole Penicillins [...] Place 1 applicator vaginally 2 times daily. Archer-3 Fatty Acids (SEA-OMEGA 30) 1200 MG CAPS [...] pressure of 18/14cm H2O. Echocardiogram done at [facility] on May 02, 2013 was reviewed in [...] were performed on May 07, 2013 at [facility] in the pulmonary function l ab and [...] notes were reviewed in clinic today. Avila Hutchinsonlon's notes were reviewed in clinic today. Records from [facility] are reviewed in clinic today. Assessment 1. [...] to them, but she was at a care home in the interim. I am going to have her see a pulmonary hypertension specialist (Dr. Rivera, [place])to dec deb on most appropriate medication, though [...] iPAP. She had an overnight oximetry at [facility] (I think on 2L?) which showed good [...] ordered today. 7.See pulmonary hypertension specialist in [place], Dr. Rivera to address question of medi [...] made to ensure accuracy; however, inadvertent computerized counseling aide errors may be pre sent. documented in [...] | | | | | [place] [address] | | | | | | [phone] | | | | | | | [...] | + + +--------+ + + | SENIOR HEALTH PHYSICS TECHNICIAN Ab, IgG | Lab | Routin | Pulmonary | Expected: | | | | e | hypertension (HCC) | 07/04/2013, Expires: | | | | | | 07/04/2014 | + + +--------+ + + | Rowley Ab, IgG | Lab | Routin | Pulmonary | Expected: | | | | e | hypertension ([facility]) | 07/04/2013, Expires: | | | | | | 07/04/2014 | + + +--------+ + + | Pulse oximetry | Respiratory | Routin | Pulmonary | Expected: | | titation | Care | e | hypertension ([facility]) | 07/04/2013, Expires: | | | | | | 07/04/2014 | + + +--------+ + + | Oxygen Therapy | Respiratory | Routin | Pulmonary | Expected: | | | Care | e | hypertension ([facility]) | 07/04/2013, Expires: | | | | [...] | Performed: [facility], [address] | | [facility] | | | | [place] [address], [place] | | MEDICAL | | | | [id number]: [id number] | | CENTER - | | | [...] + | [facility] | [address] | [place] | [phone] | | [facility] | | [address] | | | - LABORATORY | | | | + + + + + | [facility] | [address] | [place] | | | [facility] | | [address], [facility] | | | - [...] [facility] | | | | | | [facility] | | | | | | MEDICAL | | | | | | CENTER - | | | | | | LABORATORY | | + +-------+ + + + + + | Specimen | + + | Blood specimen | | (specimen) | + + + + + + + | Performing | Address | City/State/[facility] | Phone Number | | Organization | | | | + + + + + | [facility] | [address] | [place] | [phone] | | [facility] | | [address] | | | - LABORATORY | | | | + + + + + | [facility] | [address] | [place] | | | [facility] | | [address], [facility] | | | - [...]
--- OUTSIDE RECORDS SUMMARY | ~2020-02-24 | XMS | Encounter Summary ---
Demographics + + + | Address | [address] | | | [place] [address] | + + + | Home Phone [...] | Organization | [facility] | | | and [place] | + + + | Address | Unknown | + + + | Phone | Unavailable | + + + Support + + + + + | Name | Relationship | Address | Phone | + + + + + | [employer] | [place] | [id number] | | | | | Unknown | | + + + + + Care Team Providers + +------+ + | Care Commodity Supervisor Name | Role | Phone | + +------+ + | Yuni Shrestha | PCP | | + +------+ + Encounter Details +--------+ + + + + | Date | Type | Department | Care Team | Description | +--------+ + + + + | 02/01/ | [facility] | [facility] | Scout Arthur, | Lung nodule | | 2017 | Encounter | MED CTR XRAY [address] | | | | | [place] | [place] [address] | | | | | [place] [address] | [phone] | | | | | [phone] | | | +--------+ + + + [...] + + + +---------+ + + | [place] [facility] | by Does not apply [...] | | | | | [place] [address] | | | | | | [phone] | | | | | | | | +--------+---------+ + + + | 04/30/ | Office | Sleep Medicine | Jacky Calderon PA | | | 2019 | Visit | | [address] | | | | | | [place] | | | | | | [address] | | | | | | | [...] Frontal and lateral views of | [facility] | | the chest. Lungs: [...] ST. | [address] | [place] | [phone] | | [facility] | | [address] | | | - IMAGING | | | | + + + + + documented in this encounter Visit Diagnoses + + | Diagnosis | + + | Lung nodule Solitary pulmonary nodule | + + documented in this encounter"
--- OUTSIDE RECORDS SUMMARY | ~2020-02-24 | XMS | Encounter Summary ---
Demographics + + + | Address | [address] | | | [place] [address] | + + + | Home Phone [...] + | Organization | [facility] | | | and [place] | + + + | Address | Unknown | + + + | Phone | Unavailable | + + + Support + + + + + | Name | Relationship | Address | Phone | + + + + + | [employer] | [place] | [id number] | | | | | Unknown | | + + + + + Care Team Providers + +------+ + | Care Chief Operator Synthesis Name | Role | Phone | + [...] MD | oximetry) | | | | [place], | | | | | | [place] [address] | | | | | | [phone] | | | +--------+ + + + [...] | | | | | [place] [address] | | | | | | [phone] | | | | | | | | +--------+---------+ + + + | 04/30/ | Office | Sleep Medicine | Jacky Calderon PA | | | 2019 | Visit | | [address] | | | | | | [place] | | | | | | [address] | | | | | | | [...]
--- OUTSIDE RECORDS SUMMARY | ~2020-02-24 | XMS | Encounter Summary ---
Demographics + + + | Address | [address] | | | [place] [address] | + + + | Home Phone | | + + + | Preferred Language | Unknown | + + + | Marital Status | Single | + + + | Rastafarian Affiliation | NRP | + + + | Race | White | + + + | Ethnic Group | Not or | + + + Author + + + | Author | [facility] | + + + | Organization | [facility] | + + + | Address | Unknown | + + + | Phone | Unavailable | + + + Support + + +---------+ + | Name | Relationship | Address | Phone | + + +---------+ + | Lidia Thibodeaux | ECON | Unknown | | + + +---------+ + Care Team Providers + +------+ + | Care University Teacher Name | Role | Phone | [address] | | | | | | [place], [place] | | | | | | [address] | | | +--------+ + + + [...]
--- OUTSIDE RECORDS SUMMARY | ~2020-02-24 | XMS | Encounter Summary ---
Demographics + + + | Address | [address] | | | [place] [address] | + + + | Home Phone [...] + | Organization | [facility] | | | and [place] | + + + | Address | Unknown | + + + | Phone | Unavailable | + + + Support + + + + + | Name | Relationship | Address | Phone | + + + + + | [employer] | ECON | [id number] | | | | | Unknown | | + + + + + Care Team Providers + +------+ + | Care Iron Erector Name | Role | Phone | + +------+ + | Shanice Huang MD | PCP | | + +------+ + Encounter Details +--------+ + + + + | Date | Type | Department | Care Team | Description | +--------+ + + + + | 05/10/ | Orders Only | [facility] | Fatou, | | | 2016 | | CONVERSION [address] | Vera Farrar MD | | | | | JAIMIE GUTIERREZ | | | | | | [place] | | | | | | [address] | | | | | | [phone] | | | +--------+ + + + [...] | | | | | [place] [address] | | | | | | [phone] | | | | | | | | +--------+---------+ + + + | 04/30/ | Office | Sleep Medicine | Jacky Calderon PA | | | 2019 | Visit | | [address] | | | | | | [place] | | | | | | [address] | | | | | | | [...] | LV systolic and diastolic functions NML, Eunice visually estimates | | | LVEF 60-65%. [...] | LV systolic and diastolic functions NML, Eunice visually estimates | | | LVEF 60-65%. [...] pressures of | | | 10-15mmHg. MEASUREMENTS Public Works Commissioner: | | | Authenticated by: Avila Haynes DO Report Date/Time: -- | | | [id number] | | + + + + + | Procedure Note | + + | Andrade, Rad Conversion - 06/22/2019 10:54 AM PDT Patient Name: Julia Rowley of | | : 1965 Performing Physician: Avila Haynes | | DO INDICATIONS P | | ulmonary HTN CONCLUSIONS 1. Sinus rhythm. TDS. 2. Cardiac chamber dimensions | | grossly NML. LV systolic and diastolic functions NML, Eunice visually estimates LVEF | | 60-65%. RV [...] venous pressures of 10-15mmHg. | | MEASUREMENTS Public Works Commissioner: Nereydaticated by: Avila Moses | | Date/Time: -- [id number] IMPRESSION: 1. Sinus rhythm. TDS. 2. Cardiac | | chamber dimensions grossly NML. LV systolic and diastolic functions NML, Eunice | | visually estimates LVEF 60-65%. RV [...] | |MEASUREMENTS | | | | | |Public Works Commissioner: RUDI | |Authenticated by: Avila Haynes DO | |Report Date/Time: -- [id number] | | | |IMPRESSION: | |1. Sinus rhythm. TDS. 2. Cardiac chamber dimensions grossly NML. LV systolic and diastoli c functions NML, Eunice visually estimates LVEF 60-65%. RV grossly NML. 3. Valves grossly N ML. No /AI. Mild MR, mild | |TR, trace PI. 4. No Pericardial effusion. | | 5. IVC plethoric, est systolic PAP 36-41mmHg, borderline. | + + documented in this encounter Visit Diagnoses Not on filedocumented in this encounter"
--- OUTSIDE RECORDS SUMMARY | ~2020-02-24 | XMS | Encounter Summary ---
Demographics + + + | Address | [address] | | | [place] [address] | + + + | Home Phone | | + + + | Preferred Language | Unknown | + + + | Marital Status | Single | + + + | Gnosticism Affiliation | NRP | + + + | Race | White | + + + | Ethnic Group | Not or | + + + Author + + + | Author | [facility] | + + + | Organization | [facility] | + + + | Address | Unknown | + + + | Phone | Unavailable | + + + Support + + +---------+ + | Name | Relationship | Address | Phone | + + +---------+ + | Lidia Thibodeaux | ECON | Unknown | | + + +---------+ + Care Team Providers + +------+ + | Care Waredresser Name | Role | Phone | + [...] | | | | Melanocytic | Yuni, MINT WAFER DEPOSITOR | Marivel C, | | | | | nevi, | [facility] | ,PhD 1936 | | | | | unspecified | Terence | Jose Carlos | | | | | | Family Care | [place], | | | | | | [address] | [place] [address] | | | | | | Terence Carter | Phone: | | | | | | [place], | [phone] | | | | | | [place] [address] | Fax: | | | | | | Phone: | [phone] | | | | | | [phone] | | | | | | | Fax: | | | | | | | [phone] | | +--------+--------+ + + + + Encounter Details +--------+---------+ + + + | Date | Type | Department | Care Team | Description | +--------+---------+ + + + | 07/19/ | Office | Dermatology at | Marivel Rao, | Nevus (Primary Dx) | | 2015 | Visit | Pindall Brown | ,PhD 1936 | | | | | Clinic [address] | [address] [place], [place] | | | | | [place], [place] | [address] | | | | | [address] | [phone] | | | | | [phone] | | | +--------+---------+ + + + [...] skin cance rs including melanoma. ? The [place] [employer] (AAD) recommends you wear [...] information is available at the following websites: http://[email or web address].[facility]/xd/health/services/dermatology/for-patients/health_info.cfm - [facility] Derm atology http://www.aad.org/public/sun/smart.html - AAD Website [...] cancer. She is here today with her digital asset coordinator. Vega skin type II. She does occasionally [...] fail to improve. Marivel Rao M.D. Ph.D. Criminal Justice Instructor Department of Dermatology [facility] ([facility] Dermatology documented in th is encounter Plan of Treatment Not on filedocumented as of this encounter Visit Diagnoses + + | Diagnosis | + + | Nevus - Primary Benign neoplasm of skin, site unspecified | + + documented in this encounter
--- OUTSIDE RECORDS SUMMARY | ~2020-02-24 | XMS | Encounter Summary ---
Demographics + + + | Address | [address] | | | [place] [address] | + + + | Home Phone [...] Organization | [facility] | | | and [place]am[place] | + + + | Address | Unknown | + + + | Phone | Unavailable | + + + Support + + + + + | Name | Relationship | Address | Phone | + + + + + | [employer] | ECON | [id number] | | | | | Unknown | | + + + + + Care Team Providers + +------+ + | Care Header Up Name | Role | Phone | + [...] | sleep apnea); | | | | [place], | | Hypoxemia | | | | [place] [address] | | | | | | [phone] | | | +--------+ + + + [...] | | | | | [place] [address] | | | | | | [phone] | | | | | | | | +--------+---------+ + + + | 04/30/ | Office | Sleep Medicine | Jacky Calderon PA | | | 2019 | Visit | | [address] | | | | | | [place] | | | | | | [phone] | | | | | | | | +--------+---------+ + + + documented as of this encounter Visit Diagnoses + + | Diagnosis | + + | GLORIA (obstructive sleep apnea) Obstructive sleep apnea (adult) (pediatric) | + + | Hypoxemia | + + documented in this encounter"
--- OUTSIDE RECORDS SUMMARY | ~2020-02-24 | XMS | Encounter Summary ---
Demographics + + + | Address | [address] | | | [place] [address] | + + + | Home Phone [...] | [facility] | | | and [place]am[place] | + + + | Address | Unknown | + + + | Phone | Unavailable | + + + Support + + + + + | Name | Relationship | Address | Phone | + + + + + | [employer] | ECON | [phone] | | | | | Unknown | | + + + + + Care Team Providers + +------+ + | Care Java Sql Developer Name | Role | Phone | [...] | | | | ABD[place]ASH[place] BROTHERS | [address] | | | | | [place] | [phone] | | | | | [address] | | | | | | [phone] | | | +--------+ + + + [...] [address] | | | | | | [address] | | | | | | [place] [address] | | | | | | [phone] | | | | | | | | +--------+---------+ + + + | 04/30/ | Office | Sleep Medicine | Jacky Calderon PA | | | 2019 | Visit | | [address] | | | | | | [place] | | | | | | [phone] | | | | | | | | +--------+---------+ + + + documented as of this encounter Visit Diagnoses Not on filedocumented in this encounter"
--- OUTSIDE RECORDS SUMMARY | ~2020-02-24 | XMS | Encounter Summary ---
Demographics + + + | Address | [address] | | | [place] [address] | + + + | Home Phone [...] | Organization | [facility] | | | and [place]am[place] | + + + | Address | Unknown | + + + | Phone | Unavailable | + + + Support + + + + + | Name | Relationship | Address | Phone | + + + + + | [employer] | ECON | [id number] | | | | | Unknown | | + + + + + Care Team Providers + +------+ + | Care Digital Imager Name | Role | Phone | + +------+ + | Yuni Shrestha | PCP | | + +------+ + Encounter Details +--------+ + + + + | Date | Type | Department | Care Team | Description | +--------+ + + + + | 11/07/ | Hospital | [facility] | Sah[place], | Primary pulmonary | | 2016 | Encounter | MED CTR PULMONARY | Vera Farrar MD | hypertension; | | | | FUNCTION [address] | | Hypoxemia | | | | [place], | | | | | | [place] [address] | | | | | | [phone] | | | +--------+ + + + [...] directed per | 1 | 0 | 02/11/20 | | | (OCEAN) 0.65% nasal | [...] + + + +---------+ + + | Petal Starch POWD | by Does not apply [...] + + + +---------+ + + | Adair-3 Fatty | Take by mouth. | | [...] | | | | | [place] [address] | | | | | | [phone] | | | | | | | | +--------+---------+ + + + | 04/30/ | Office | Sleep Medicine | Jacky Calderon PA | | | 2019 | Visit | | [address] | | | | | | [place] | | | | | | [address] | | | | | | | [...]
--- OUTSIDE RECORDS SUMMARY | ~2020-02-24 | XMS | Encounter Summary ---
Demographics + + + | Address | [address] | | | [place] [address] | + + + | Home Phone [...] Organization | [facility] | | | and [place] | + + + | Address | Unknown | + + + | Phone | Unavailable | + + + Support + + + + + | Name | Relationship | Address | Phone | + + + + + | [employer] | ECON | [id number] | | | | | Unknown | | + + + + + Care Team Providers + +------+ + | Care Behavioral Health Technician Name | Role | Phone | [...] | | | | | | [place] [address] | | | | | | [phone] | | | +--------+ + + + [...] | | | | | [place] [address] | | | | | | [phone] | | | | | | | | +--------+---------+ + + + | 04/30/ | Office | Sleep Medicine | Jacky Calderon PA | | | 2020 | Visit | | [address] | | | | | | [place] | | | | | | [address] | | | | | | | [...]
--- OUTSIDE RECORDS SUMMARY | ~2020-02-24 | XMS | Encounter Summary ---
Demographics + + + | Address | [address] | | | [place] [address] | + + + | Home Phone [...] Organization | [facility] | | | and [place]am[place] | + + + | Address | Unknown | + + + | Phone | Unavailable | + + + Support + + + + + | Name | Relationship | Address | Phone | + + + + + | [employer] | ECON | [phone] | | | | | Unknown | | + + + + + Care Team Providers + +------+ + | Care Human Resource Internship Name | Role | Phone | + [...] + | 08/27/ | Office | [facility] | [place], | Primary pulmonary | | 2012 | Visit | PULMONARY [address] | Vera Farrar MD | hypertension (HCC) | | | | [place], | | (Primary Dx); COPD | | | | [place] [address] | | (chronic obstructive | | | | [phone] | | pulmonary disease) | | | [...] MD [place] Bernardo [facility] [address] [place], [address] HPI Margarita Rowley is a 47 y.o. female patient of Gela Trimble [facility] here today for follow up of pulmonary [...] Years of Education: N/A Occupational History Disabled. [employer] Social History Main Topics Smoking status: Former Smoker -- 1.0 packs/day for 20 years Types: Cigarettes Quit date: 05/14/2013 Smokeless tobacco: None Alcohol Use: Yes history of abuse Drug Use: Yes Special: Cocaine history of cocaine use Sexually Active: None Other Topics Concern None Social History Narrative Lives at [employer]. Allergies: Allergies Allergen Reactions Erythromycin Metronidazole Penicillins [...] Active Take 2,000 Units by mouth Daily. [place] Starch POWD Active by Does not apply [...] patch onto the skin every 24 hours. [place]-3 Fatty Acids (SEA-OMEGA 30) 1200 MG CAPS [...] made to ensure accuracy; however, inadvertent computerized phlebotomy coordinator errors may be pre sent. documented in [...] | | | | | [place] [address] | | | | | | [phone] | | | | | | | | +--------+---------+ + + + | 04/30/ | Office | Sleep Medicine | Jacky Calderon PA | | | 2019 | Visit | | [address] | | | | | | [place] | | | | | | [address] | | | | | | | [...] [address] | [place] | [phone] | | [facility] | | [address] | | | - LABORATORY | | | | + + + + + | [facility] [facility] | [address] | [place] | | | [facility] | | [id number] | | | - [...] + | [facility] | [address] | [place], [place] | [phone] | | [facility] | | [address] | | | - LABORATORY | | | | + + + + + | [facility] | [address] | [place], [place] | | | [facility] | | [address] [place] [address] | | | - LABORATORY | | [...]
--- OUTSIDE RECORDS SUMMARY | ~2020-02-24 | XMS | Encounter Summary ---
Demographics + + + | Address | [address] | | | [place] [address] | + + + | Home Phone [...] Organization | [facility] | | | and [place]am[place] | + + + | Address | Unknown | + + + | Phone | Unavailable | + + + Support + + + + + | Name | Relationship | Address | Phone | + + + + + | [employer] | ECON | [phone] | | | | | Unknown | | + + + + + Care Team Providers + +------+ + | Care Auto Haulaway Driver Name | Role | Phone | [...] + | 05/22/ | Office | [facility] | Jacky Calderon PA | Primary central | | 2015 | Visit | SLEEP DISORDER [address] | [address] | sleep apnea (Primary | | | | [address] | [place] | Dx) | | | | [place] [address] | [address] | | | | | [phone] | | | +--------+---------+ + + + [...] was: 05/21/2014 date of polysomnography: 03/13/[address] [facility] AHI: 64.2 O2%: n/a Machine type: Respironics BiPAP Auto with ResMed Quattro FX full face mask obtained from: [employer] in [place] pressure: 16/5 cm with backup rate of [...] year, sooner prn. Fifteen minutes were spent [id number], with the majority of time spent in [...] | | | | | [place] [address] | | | | | | [phone] | | | | | | | | +--------+---------+ + + + | 04/30/ | Office | Sleep Medicine | Jacky Calderon PA | | | 2019 | Visit | | [address] | | | | | | [place] | | | | | | [phone] | | | | | | | | +--------+---------+ + + + documented as of this encounter Visit Diagnoses + + | Diagnosis | + + | Primary central sleep apnea - Primary | + + documented in this encounter"
--- OUTSIDE RECORDS SUMMARY | ~2020-02-24 | XMS | Encounter Summary ---
Demographics + + + | Address | [address] | | | [place] [address] | + + + | Home Phone [...] | Organization | [facility] | | | and [place] | + + + | Address | Unknown | + + + | Phone | Unavailable | + + + Support + + + + + | Name | Relationship | Address | Phone | + + + + + | [employer] | ECON | [phone] | | | | | Unknown | [...] | Primary | [place], | [address] | | | | | pulmonary | Vera B, | [place], | | | | | hypertension | MD [address] | [place] | | | | | ([facility]) | [address] | [address] | | | | | Procedures | [place], | Phone: | | | | | ECHO | [place] [address] | [phone] | | | | | Complete [place] | | Fax: | | | | | [facility] | | [phone] | | | | | [place] | | | | | | | [address] | | | | | | | [place] | | | | | | | [...] | | | Pulmonology | airway | INSURANCE CASE MANAGER [address] | MD | | | | | obstruction, | IRMA | | | | | | not | [address] | | | | | | elsewhere | [place], | | | | | | classified | [place] [address] | | | | | | Procedures | Phone: | | | | | | F/U | [phone] | | | | | | | Fax: | | | | | | | [phone] | | +--------+--------+ + + + + Encounter Details +--------+---------+ + + + | Date | Type | Department | Care Team | Description | +--------+---------+ + + + | 03/12/ | Office | [facility] [place] | [place], | Primary pulmonary | | 2014 | Visit | PULMONARY [address] | Vera Farrar MD | hypertension; | | | | [place], | | Exercise hypoxemia | | | | [place] [address] | | (HCC); Sleep related | | | | [phone] | | hypoxemia; COPD | | | [...] [facility] She is also on her BiPAP [...] Diagnosis Date COPD (chronic obstructive pulmonary disease) ([facility]) moderate, FEV1 1.40 (59%) Pulmonary hypertension ([facility]) severe, class 1, class 2, class 3 Bipolar disorder ([facility]) PTSD (post-traumatic stress disorder) Osteoarthritis Obstructive sleep [...] Years of Education: N/A Occupational History Disabled. [employer] Social History Main Topics Smoking status: Former Smoker -- 1.00 packs/day for 20 years Types: Cigarettes Quit date: 12/10/2014 Smokeless tobacco: None Comment: restarted in August 2014, quit again 12/10/14 Alcohol Use: Yes Comment: history of abuse Drug Use: Yes Special: Cocaine Comment: history of cocaine use Sexual Activity: None Other Topics Concern None Social History Narrative Lives at [employer]. Allergies: Allergies Allergen Reactions Erythromycin Metronidazole Penicillins [...] TABS Take 2,000 Units by mouth Daily. [place] Starch POWD by Does not apply route [...] mg onto the skin every 24 hours. [place]-3 Fatty Acids (SEA-OMEGA 30) 1200 MG [...] 327.23 1 each 0 Respiratory Therapy Supplies [facility] Please contact Dr. Lainez's office if oxygen [...] kg (205 lb 11.2 oz) | B [place] 41.52 kg/m2 | SpO2 90% RA General [...] breath sounds are diminished bilaterally, no wheezes, scraper burrer ckles or rhonchi Chest Wall: No deformity [...] Range: 0-100 6 eGFR, External Latest Range: [id number] 58 (A) Immunization History Administered Date(s) Administered [...] made to ensure accuracy; however, inadvertent computerized collar packer errors may be pre sent. documented in [...] | | | | | [place] [address] | | | | | | [phone] | | | | | | | | +--------+---------+ + + + | 04/30/ | Office | Sleep Medicine | Jacky Calderon PA | | 2019 | Visit | | [address] | | | | | | [place] | | | | | | [address] | | | | | | | [...] At | + + + | [facility] | [place] | | STUDY DATE: 03/26/2015 PATIENT NAME: Margarita Rowley : | [facility] | | 1965 PCP: Physician No CLINICAL [facility] | | HISTORY/DIAGNOSIS: Pulmonary HTN A transthoracic [...] Signed by: Derick Strong, | | | [facility] 03/26/2015 13:52 Driver License Agent: Maciel Silva, | | | RDCS, RDMS, RVT | | + + + + + + + + | Performing | Address | City/State/Zipcode | Phone Number | | Organization | | | | + + + + + | [facility] | [address] | [place], [place] | [phone] | | [facility] | | [address] | | | - IMAGING | | [...]
--- OUTSIDE RECORDS SUMMARY | ~2020-02-24 | XMS | Encounter Summary ---
Demographics + + + | Address | [address] | | | [place] [address] | + + + | Home Phone [...] Organization | [facility] | | | and [place]am[place] | + + + | Address | Unknown | + + + | Phone | Unavailable | + + + Support + + + + + | Name | Relationship | Address | Phone | + + + + + | [employer] | ECON | [id number] | | | | | Unknown | | + + + + + Care Team Providers + +------+ + | Care Economic Adviser Name | Role | Phone | + +------+ + | Yuni Shrestha | PCP | | + +------+ + Encounter Details +--------+ + + + + | Date | Type | Department | Care Team | Description | +--------+ + + + + | 06/11/ | Abstract | [facility] [place] | [facility], | | | 2016 | | GASTROENTEROLOGY | BRITTANY Maddox [address] | | | | | [address] [place] | [place], [place] [address] | | | | | [address] [place], [place] | [place], [place] | | | | | [address] | [address] | | | | | [phone] | | | +--------+ + + + [...] | | | | | [place] [address] | | | | | | [phone] | | | | | | | | +--------+---------+ + + + | 04/30/ | Office | Sleep Medicine | Jacky Calderon PA | | | 2020 | Visit | | [address] | | | | | | [place] | | | | | | [address] | | | | | | | | +--------+---------+ + + + documented as of this encounter Visit Diagnoses Not on filedocumented in this encounter"
--- OUTSIDE RECORDS SUMMARY | ~2020-02-24 | XMS | Encounter Summary ---
Demographics + + + | Address | [address] | | | [place] [address] | + + + | Home Phone [...] + + | Author | [facility] | | | and [place]am[place] | + + + | Organization | [facility] | | | and [place] | + + + | Address | Unknown | + + + | Phone | Unavailable | + + + Support + + + + + | Name | Relationship | Address | Phone | + + + + + | [employer] | ECON | [phone] | | | | | Unknown | | + + + + + Care Team Providers + +------+ + | Care Recoil Spring Winder Name | Role | Phone | [...] | Primary | [place], | [address] | | | | | pulmonary | Vera B, | [place], | | | | | hypertension | MD [address] | [place] | | | | | ([facility]) | [address] | [address] | | | | | Procedures | [place], | Phone: | | | | | ECHO | [place] [address] | [phone] | | | | | Complete [place] | | Fax: | | | | | [facility] | | [phone] | | | | | [place] | | | | | | | [address] | | | | | | | [place]OPPLER [place] | | | | | | | [...] | hypertension (HCC); | | | | [place], | | [place]OR[place] (obstructive | | | | [place] [address] | | sleep apnea); COPD | | | | [phone] | | (chronic obstructive | | | [...] 1200 feet regularly. Please take her to [facility] monthly for urine tests. Get the printed [...] Diagnosis Date COPD (chronic obstructive pulmonary disease) ([facility]) moderate, FEV1 1.40 (59%) Pulmonary hypertension ([facility]) severe, class 1, class 2, class 3 Bipolar disorder ([facility]) PTSD (post-traumatic stress disorder) Osteoarthritis Obstructive sleep apnea AHI 64.2 Vitamin D deficiency GERD (gastroesophageal reflux disease) Hypothyroidism Seizure disorder ([facility]) Developmental delay Hypoxemia on 2L [...] Years of Education: N/A Occupational History Disabled. [employer] Social History Main Topics Smoking status: Current [...] Concern None Social History Narrative Lives at [employer]. Allergies: Allergies Allergen Reactions Erythromycin Metronidazole Penicillins [...] TABS Take 2,000 Units by mouth Daily. [place] Starch POWD by Does not apply route [...] mg onto the skin every 24 hours. [place]-3 Fatty Acids (SEA-OMEGA 30) 1200 MG CAPS [...] her caregivers to take her to [facility] [place] monthly to have this done. HCG, Urine, [...] and lab slip given to take to [facility]. She was advised to call if new pulmonary symptoms were to develop. Return to clinic in July, or sooner with concerns. CC: VIKAS Galicia, Lashae Rivera MD Portions of this report were transcribed using voice recognition software. Every effort wa s made to ensure accuracy; however, inadvertent computerized pe manager errors may be pre sent. documented [...] | | | | | [place] [address] | | | | | | [phone] | | | | | | | | +--------+---------+ + + + | 04/30/ | Office | Sleep Medicine | Jacky Calderon PA | | | 2019 | Visit | | [address] | | | | | | [place] | | | | | | [address] | | | | | | | [...]
--- OUTSIDE RECORDS SUMMARY | ~2020-02-24 | XMS | Encounter Summary ---
Demographics + + + | Address | [address] | | | [place] [address] | + + + | Home Phone [...] | Organization | [facility] | | | and [place] | + + + | Address | Unknown | + + + | Phone | Unavailable | + + + Support + + + + + | Name | Relationship | Address | Phone | + + + + + | Projects Horizon | ECON | [id number] | | | | | Unknown | | + + + + + Care Team Providers + +------+ + | Care Blood Tester Fowl Name | Role | Phone | + [...] | | | | | pulmonary | CONTACT LENS FITTER [address] | [address] | | | | | hypertension | [address] | [place], [place] | | | | | (HCC) | [place], | [address] | | | | | Procedures | [place] [address] | Phone: | | | | | F/U | Phone: | [phone] | | | | | | [phone] | Fax: | | | | | | Fax: | [phone] | | | | | | [phone] | | +--------+--------+ + + + + Encounter Details +--------+---------+ + + + | Date | Type | Department | Care Team | Description | +--------+---------+ + + + | 02/01/ | Office | [facility] | Jerson Scout Mistry, | Primary pulmonary | | 2017 | Visit | PULMONARY [address] | [address] | hypertension (HCC) | | | | [place], | [place] [address] | (Primary Dx); | | | | [place] [address] | [phone] | Chronic respiratory | | | | [phone] | | failure with hypoxia | | [...] on medication and oxygen and BiPAP at [facility] HPI: I am able to reconstruct this patient's history with the benefit of Dr. Elvi rivera's pulmonary clinic notes from [facility] Est[facility] in [facility] from May 17, 2016. Today, she is [...] was apparently diagnosed August 08, 2013 in [place] at [facility] on 2 L with right [...] July 2015 chest x-ray. An echocardiogram from [facility] done March 09, 2016, a [...] be seeing her pulmonary hypertension specialist in [place] before then. The note from 2016 was very helpful. Over half the session was spent in counseling. Picovico was used as a carbide powder processor and I terrance pologized for uncorrected mistakes. Scout Arthur M.D. [...] | | | | | [place] [address] | | | | | | [phone] | | | | | | | | +--------+---------+ + + + | 04/30/ | Office | Sleep Medicine | Jacky Calderon PA | | 2019 | Visit | | [address] | | | | | | [place] | | | | | | [phone] | | | | | | | [...]
--- OUTSIDE RECORDS SUMMARY | ~2020-02-24 | XMS | Encounter Summary ---
Demographics + + + | Address | [address] | | | [place] [address] | + + + | Home Phone [...] | Organization | [facility] | | | and [place] | + + + | Address | Unknown | + + + | Phone | Unavailable | + + + Support + + + + + | Name | Relationship | Address | Phone | + + + + + | Projects [employer] | ECON | [phone] | | | | | Unknown | | + + + + + Care Team Providers + +------+ + | Care Custom Designer Name | Role | Phone | [...] + + | 10/16/ | Office | [facility] | Jacky Calderon PA | Primary central | | 2012 | Visit | SLEEP DISORDER [address] | [address] | sleep apnea (Primary | | | | [address] [place] | [place], [place] | Dx) | | | | [place] [address] | [address] | | | | | [phone] | | | +--------+---------+ + + + [...] was: 09/25/2013 date of polysomnography: 03/13/2013 at [facility] AHI: 64.2 O2%: n/a Machine type: Respironics BiPAP Auto with ResMed Quattro FX full face mask obtained from: [facility] pressure: 18/14 cm Nights using BiPAP: [...] prescription sent to [facility] in [place] by Dr. Lainez had the correct pressures. [facility] in [facility] will make the adjustment to Jessie's BiPAP [...] I talked with [facility] in [facility] having her pressures corrected to IPAP 19 cm, EPAP 5 cm and a backup of 8 bpm with 2 L/mi n O2 bled into the system. I will follow up again in 1 month, sooner prn. Fifteen minutes were spent [id number], wi th the majority of time spent in counseling. Jacky Calderon PA-C cc: Gela Trimble, DINKING MACHINE OPERATOR-Xiang Lainez MD documented in this enco unter [...] | | | | | [place] [address] | | | | | | [phone] | | | | | | | | +--------+---------+ + + + | 04/30/ | Office | Sleep Medicine | Jacky Calderon PA | | 2019 | Visit | | [address] | | | | | | [place] | | | | | | [address] | | | | | | | | +--------+---------+ + + + documented as of this encounter Visit Diagnoses + + | Diagnosis | + + | Primary central sleep apnea - Primary | + + documented in this encounter"
--- OUTSIDE RECORDS SUMMARY | ~2020-02-24 | XMS | Encounter Summary ---
Demographics + + + | Address | [address] | | | [place] [address] | + + + | Home Phone [...] Author + + + | Author | [facility] | + + + | Organization | [facility] | + + + | Address | Unknown | + + + | Phone | Unavailable | + + + Support + + +---------+ + | Name | Relationship | Address | Phone | + + +---------+ + | Lidia Thibodeaux | ECON | Unknown | | + + +---------+ + Care Team Providers + +------+ + | Care Slasher Name | Role | Phone | + [...] | | | Medicine at | [facility], | | | | | [facility] | [place] [address] | | | | | [address] | [phone] | | | | | [facility] | | | | | | Pavilion, 3rd Floor | | | | | | [place], [place] | | | | | | [address] | | | | | | [phone] | | | +--------+ + + + [...]
--- OUTSIDE RECORDS SUMMARY | ~2020-02-24 | XMS | Encounter Summary ---
Demographics + + + | Address | [address] | | | [place] [address] | + + + | Home Phone [...] | Organization | [facility] | | | and [place] | + + + | Address | Unknown | + + + | Phone | Unavailable | + + + Support + + + + + | Name | Relationship | Address | Phone | + + + + + | [employer] | ECON | [id number] | | | | | Unknown | | + + + + + Care Team Providers + +------+ + | Care News Production Assistant Name | Role | Phone | [...] [place] | | | | | | [address] | (Fax) | | | | | [phone] | | | +--------+ + + + [...] | | | | | [place] [address] | | | | | | [phone] | | | | | | | | +--------+---------+ + + + | 04/30/ | Office | Sleep Medicine | Jacky Calderon PA | | | 2020 | Visit | | [address] | | | | | | [place] | | | | | | [address] | | | | | | | | +--------+---------+ + + + documented as of this encounter Visit Diagnoses Not on filedocumented in this encounter"
--- OUTSIDE RECORDS SUMMARY | ~2020-02-24 | XMS | Encounter Summary ---
Demographics + + + | Address | [address] | | | [place] [address] | + + + | Home Phone [...] Organization | [facility] | | | and [place] | + + + | Address | Unknown | + + + | Phone | Unavailable | + + + Support + + + + + | Name | Relationship | Address | Phone | + + + + + | [employer] | ECON | [phone] | | | | | Unknown | | + + + + + Care Team Providers + +------+ + | Care Framing Specialist Name | Role | Phone | + +------+ + PCP | Unavailable | + +------+ + Encounter Details +--------+ + + + + | Date | Type | Department | Care Team | Description | +--------+ + + + + | 01/10/ | Hospital | [facility] | Caesar Buitrago | | | 2008 | Encounter | HOSPITAL MED SURG | [address] | | | | | [address] [place] | [facility], | | | | | [place] | [place] [address] | | | | | [address] | [phone] | | | | | [phone] | | | +--------+ + + + [...] | | | | | [place] [address] | | | | | | [phone] | | | | | | | | +--------+---------+ + + + | 04/30/ | Office | Sleep Medicine | Jacky Calderon PA | | | 2020 | Visit | | [address] | | | | | | [place] | | | | | | [address] | | | | | | | | +--------+---------+ + + + documented as of this encounter Visit Diagnoses Not on filedocumented in this encounter"
--- OUTSIDE RECORDS SUMMARY | ~2020-02-24 | XMS | Encounter Summary ---
Demographics + + + | Address | [address] | | | [place] [address] | + + + | Home Phone [...] Organization | [facility] | | | and [place] | + + + | Address | Unknown | + + + | Phone | Unavailable | + + + Support + + + + + | Name | Relationship | Address | Phone | + + + + + | [employer] | ECON | [id number] | | | | | Unknown | | + + + + + Care Team Providers + +------+ + | Care Bowling Floor Desk Clerk Name | Role | Phone | [...] W | Cancellation) | | | | [address], | [address] [place] | | | | | [place] [address] | [place] [address] | | | | | [phone] | [phone] | | | | | | | [...] | | | | | [place] [address] | | | | | | [phone] | | | | | | | | +--------+---------+ + + + | 04/30/ | Office | Sleep Medicine | Jacky Calderon PA | | | 2019 | Visit | | [address] | | | | | | [place] | | | | | | [address] | | | | | | | | +--------+---------+ + + + documented as of this encounter Visit Diagnoses Not on filedocumented in this encounter"
--- OUTSIDE RECORDS SUMMARY | ~2020-02-24 | XMS | Encounter Summary ---
Demographics + + + | Address | [address] | | | [place] [address] | + + + | Home Phone [...] | Organization | [facility] | | | and [place] | + + + | Address | Unknown | + + + | Phone | Unavailable | + + + Support + + + + + | Name | Relationship | Address | Phone | + + + + + | Projects [employer] | ECON | [id number] | | | | | Unknown | | + + + + + Care Team Providers + +------+ + | Care Transfer Car Operator Drier Name | Role | Phone | + +------+ + | Gela Trimble KNITTING MACHINE OPERATOR | PCP | | + +------+ + [...] | Primary | [place], | [address] | | | | | pulmonary | Vera B, | [place], | | | | | hypertension | MD [address] | [place] | | | | | (HCC) | [address] | [address] | | | | | Procedures | [place], | Phone: | | | | | ECHO | [place] [address] | [phone] | | | | | Complete | | Fax: | | | | | APPT | | [phone] | | | | | 03/18/14. | [...] | Primary | [place], | [address] | | | | | pulmonary | Vera B, | [place], | | | | | hypertension | MD [address] | [place] | | | | | ([facility]) | [address] | [address] | | | | | Procedures | [place], | Phone: | | | | | ECHO | [place] [address] | [phone] | | | | | Complete | | Fax: | | | | | APPT | | [phone] | | | | | 03/18/14. | | | | | | | DEFERRED T0 | | | | | | | 03/01/14 | | | +--------+--------+ + + + + Encounter Details +--------+ + + + + | Date | Type | Department | Care Team | Description | +--------+ + + + + | 03/12/ | Hospital | [facility] | [place], | Primary pulmonary | | 2013 | Encounter | MED CTR ECHO [address] | Vera Farrar MD | hypertension | | | | [address] | [place], | | | | | [place] [address] | Technologist | | | | | [phone] | | | +--------+ + + + [...] + + + +---------+ + + | [place] Starch POWD | by Does not apply [...] + + + +---------+ + + | [place]-3 Fatty | Take by mouth. | | [...] 08/06/20 | | | Therapy Supplies | [facility]'s office | | | 13 [...] | | | | | [place] [address] | | | | | | [phone] | | | | | | | | +--------+---------+ + + + | 04/30/ | Office | Sleep Medicine | Jacky Calderon PA | | | 2020 | Visit | | [address] | | | | | | [place] | | | | | | [address] | | | | | | | [...] + + + | [facility] ECHOCARDIOGRAM REPORT | [place] | | STUDY DATE: 03/12/2014 PATIENT NAME: Margarita Rowley : | [facility] | | 1965 PCP: Gela Trimble [facility] | | HISTORY/DIAGNOSIS: PULM HTN A [...] PhD FACC 03/12/2014 8:38 | | | Green Promotions Specialist: Hung Caro, TIRSO, RVT, RDMS | | + + + + + | Procedure Note | + + | Roberto Salguero MD - 03/12/2014 6:[address] [facility] | | CENTERECHOCARDIOGRAM REPORTSTUDY DATE: 03/12/2014PATIENT NAME: Margarita MooreB: | | 1965MRN: [id number]: Gela DayINICAL HISTORY/DIAGNOSIS: PULM HTNA | | [...] | mmHgLA volume: 34 mLLA index: 18 mL/h4Zmwiep Inflow DT: 290 msIVRT: 117 msValsalva: | | YES, TO NO EFFECTPWDTI S wave: 12.0 cm/sPWDTI E wave: 15.5 cm/sPWDTI A wave: 24.1 | | cm/sE/A Ratio: 0.643E/E Ratio: Signed by: Artie Salguero MD PhD FACC 03/12/2014 | | 8:38 Green Promotions Specialist: Hung Caro, RDCS, RVT, RDMS | |Mitral [...] 03/12/2014 8:38 | | | | | |Green Promotions Specialist: Hung Caro, RDCS, RVT, RDMS | + + + + + + + | Performing | Address | City/State/Zipcode | Phone Number | | Organization | | | | + + + + + | [facility] [address] | [address] | [place] | [phone] | | [facility] | | [address] | | | - IMAGING | | | | + + + + + documented in this encounter Visit Diagnoses + + | Diagnosis | + + | Primary pulmonary hypertension | + + documented in this encounter"
--- OUTSIDE RECORDS SUMMARY | ~2020-02-24 | XMS | Encounter Summary ---
Demographics + + + | Address | [address] | | | [place] [address] | + + + | Home Phone [...] | [facility] | | | and [place] | + + + | Address | Unknown | + + + | Phone | Unavailable | + + + Support + + + + + | Name | Relationship | Address | Phone | + + + + + | [employer] | ECON | [phone] | | | | | Unknown | | + + + + + Care Team Providers + +------+ + | Care Surveying Technician Name | Role | Phone | [...] RN | apnea | | | | [place], | | | | | | [place] [address] | | | | | | [phone] | | | +--------+ + + + [...] | | | | | [place] [address] | | | | | | [phone] | | | | | | | | +--------+---------+ + + + | 04/30/ | Office | Sleep Medicine | Jacky Calderon PA | | | 2020 | Visit | | [address] | | | | | | [place] | | | | | | [address] | | | | | | | | +--------+---------+ + + + documented as of this encounter Visit Diagnoses + + | Diagnosis | + + | Obstructive sleep apnea Obstructive sleep apnea (adult) (pediatric) | + + documented in this encounter"
--- OUTSIDE RECORDS SUMMARY | ~2020-02-24 | XMS | Encounter Summary ---
Demographics + + + | Address | [address] | | | [place] [address] | + + + | Home Phone [...] | Organization | [facility] | | | and [place] | + + + | Address | Unknown | + + + | Phone | Unavailable | + + + Support + + + + + | Name | Relationship | Address | Phone | + + + + + | [employer] | ECON | [phone] | | | | | Unknown | | + + + + + Care Team Providers + +------+ + | Care Therapy Director Name | Role | Phone | [...] | 2015 | | GASTROENTEROLOGY | Varsha DIRECTOR ENGINEERING [address] | | | | | [address] [place] | [place], [place] [address] | | | | | [address] [place], [place] | [place], [place] | | | | | [address] | [address] | | | | | [phone] | | | +--------+--------+ + + + [...] | | | | | [place] [address] | | | | | | [phone] | | | | | | | [...]
--- OUTSIDE RECORDS SUMMARY | ~2020-02-24 | XMS | Encounter Summary ---
Demographics + + + | Address | [address] | | | [place] [address] | + + + | Home Phone [...] Organization | [facility] | | | and [place] | + + + | Address | Unknown | + + + | Phone | Unavailable | + + + Support + + + + + | Name | Relationship | Address | Phone | + + + + + | [employer] | ECON | [phone] | | | | | Unknown | | + + + + + Care Team Providers + +------+ + | Care Torpedo Specialist Name | Role | Phone | [...] Farrar MD | | | | | [place], | | | | | | [place] [address] | | | | | | [phone] | | | +--------+ + + + [...] | | | | | [place] [address] | | | | | | [phone] | | | | | | | [...]
--- OUTSIDE RECORDS SUMMARY | ~2020-02-24 | XMS | Encounter Summary ---
Demographics + + + | Address | [address] | | | [place] [address] | + + + | Home Phone [...] Author + + + | Author | [facility] | + + + | Organization | [facility] | + + + | Address | Unknown | + + + | Phone | Unavailable | + + + Support + + +---------+ + | Name | Relationship | Address | Phone | + + +---------+ + | Lidia Thibodeaux | ECON | Unknown | | + + +---------+ + Care Team Providers + +------+ + | Care Wharf Attendant Name | Role | Phone | [...] [address] | | | | | | [place], [place] | | | | | | [address] | | | +--------+ + + + [...]
--- OUTSIDE RECORDS SUMMARY | ~2020-02-24 | XMS | Encounter Summary ---
Demographics + + + | Address | [address] | | | [place] [address] | + + + | Home Phone [...] | Organization | [facility] | | | and [place] | + + + | Address | Unknown | + + + | Phone | Unavailable | + + + Support + + + + + | Name | Relationship | Address | Phone | + + + + + | [employer] | ECON | [id number] | | | | | Unknown | | + + + + + Care Team Providers + +------+ + | Care Safekeeping Clerk Name | Role | Phone | [...] | Refill | [facility] [place] | [place], | Medication Refill | | 2014 | | PULMONARY [address] | Vera Farrar MD | | | | | [place], | | | | | | [place] [address] | | | | | | [phone] | | | +--------+--------+ + + + [...] | | | | | [place] [address] | | | | | | [phone] | | | | | | | | +--------+---------+ + + + | 04/30/ | Office | Sleep Medicine | Jacky Calderon PA | | | 2019 | Visit | | [address] | | | | | | [place] | | | | | | [address] | | | | | | | [...]
--- OUTSIDE RECORDS SUMMARY | ~2020-02-24 | XMS | Encounter Summary ---
Demographics + + + | Address | [address] | | | [place] [address] | + + + | Home Phone | | + + + | Preferred Language | Unknown | + + + | Marital Status | Single | + + + | Oriental Orthodox Affiliation | NRP | + + [...] Team Providers + +------+ + | Care Infantry Unit Leader Name | Role | Phone | + +------+ + | Gela Trimble MARKET INVESTIGATOR | PCP | | + +------+ + [...] | | | | | | | [address] | | | | | | | [place] | | | | | | | Mushtaq Mailcode: | | | | | | | [address] [facility] | | | | | | | Hospital | | | | | | | [place], [place] | | | | | | | [address] | | | | | | | Phone: | | | | | | | [phone] | | | | | | | Fax: | | | | | | | [phone] | +--------+--------+ + + + + Encounter Details +--------+ + + + + | Date | Type | Department | Care Team | Description | +--------+ + + + + | 05/07/ | Results/Int | Pulmonary Function | | Unspecified asthma | | 2012 | erpretation | Lab at [facility] [address] | | (Primary Dx) | | | | [address] | | | | | | [facility] | | | | | | [place], [place] | | | | | | [address] | | | | | | [phone] | | | +--------+ + + + [...] | + +--------+ + + + | LA SPIROMETRY TEST | Routin | 05/08/2013 | [...]
--- OUTSIDE RECORDS SUMMARY | ~2020-02-24 | XMS | Encounter Summary ---
Demographics + + + | Address | [address] | | | [place] [address] | + + + | Home Phone [...] | Organization | [facility] | | | and [place] | + + + | Address | Unknown | + + + | Phone | Unavailable | + + + Support + + + + + | Name | Relationship | Address | Phone | + + + + + | [employer] | ECON | [id number] | | | | | Unknown | | + + + + + Care Team Providers + +------+ + | Care Assistant Film Editor Name | Role | Phone | + +------+ + | Gela Trimble NP | PCP | | + +------+ + Encounter Details +--------+ + + + + | Date | Type | Department | Care Team | Description | +--------+ + + + + | 12/17/ | [facility] | [facility] | [place], | | | 2013 | Encounter | MED CTR GENERIC OP | Vera Farrar MD | | | | | CONV DEPT [address] | | | | | | [place], | | | | | | [place] [address] | | | | | | [phone] | | | +--------+ + + + [...] + + + +---------+ + + | [place] Starch POWD | by Does not apply [...] + + +---------+ + + | [place]-3 Fatty | Take by mouth. | [...] | | | | | [place] [address] | | | | | | [phone] | | | | | | | | +--------+---------+ + + + | 04/30/ | Office | Sleep Medicine | Jacky Calderon PA | | | 2020 | Visit | | [address] | | | | | | [place] | | | | | | [address] | | | | | | | | +--------+---------+ + + + documented as of this encounter Visit Diagnoses Not on filedocumented in this encounter"
--- OUTSIDE RECORDS SUMMARY | ~2020-02-24 | XMS | Encounter Summary ---
Demographics + + + | Address | [address] | | | [place] [address] | + + + | Home Phone [...] | Organization | [facility] | | | and [place] | + + + | Address | Unknown | + + + | Phone | Unavailable | + + + Support + + + + + | Name | Relationship | Address | Phone | + + + + + | [employer] | ECON | [id number] | | | | | Unknown | | + + + + + Care Team Providers + +------+ + | Care Control System Computer Scientist Name | Role | Phone | + +------+ + | Gela Trimble NP | PCP | | + +------+ + Encounter Details +--------+ + + + + | Date | Type | Department | Care Team | Description | +--------+ + + + + | 07/30/ | Hospital | [facility] | [place], | | | 2012 | Encounter | MED CTR SLEEP | Vera Farrar MD | | | | | [address] | | | | | | [place] | | | | | | [address] | | | | | | [phone] | | | +--------+ + + + [...] | + + + +---------+--------+ + | [place]-3 Fatty | Take by mouth. | | [...] | | | | | [place] [address] | | | | | | [phone] | | | | | | | [...]
--- OUTSIDE RECORDS SUMMARY | ~2020-02-24 | XMS | Encounter Summary ---
Demographics + + + | Address | [address] | | | [place] [address] | + + + | Home Phone [...] Organization | [facility] | | | and [place]am[place] | + + + | Address | Unknown | + + + | Phone | Unavailable | + + + Support + + + + + | Name | Relationship | Address | Phone | + + + + + | [employer] | ECON | [phone] | | | | | Unknown | | + + + + + Care Team Providers + +------+ + | Care Tutoring Manager Name | Role | Phone | [...] | hypertension (HCC) | | | | [place], | | (Primary Dx); | | | | [place] [address] | | Obstructive sleep | | | | [phone] | | apnea; Hypoxemia; | | | [...] 09/17/2013 11:49 AM PSTHave blood test tocarlin ay. Have appointment for mask fitting to decrease leak and work on this. Walk test with next appointmentElectronically signed by Vera Lainez MD at 013 11:50 AM PST documented in this encounter Progress Notes Vera Lainez MD - 09/17/2013 11:23 AM PSTFormatting of this note might be differe nt from the original. Pulmonary Follow Up MD Elo Bernardo [facility] [address] [place], [address] HPI Margarita Rowley is a 48 y.o. [...] Years of Education: N/A Occupational History Disabled. [email or web address] Social History Main Topics Smoking status: Former Smoker -- 1.0 packs/day for 20 years Types: Cigarettes Quit date: 05/14/2013 Smokeless tobacco: None Alcohol Use: Yes Comment: history of abuse Drug Use: Yes Special: Cocaine Comment: history of cocaine use Sexually Active: None Other Topics Concern None Social History Narrative Lives at [place]. Allergies: Allergies Allergen Reactions Erythromycin Metronidazole Penicillins [...] TABS Take 2,000 Units by mouth Daily. [place] Starch POWD by Does not apply route [...] 100 mg by mouth 2 times daily. [place]-3 Fatty Acids (SEA-OMEGA 30) 1200 MG CAPS [...] made to ensure accuracy; however, inadvertent computerized collection systems technician errors may be pre sent. documented [...] | | | | | [place] [address] | | | | | | [phone] | | | | | | | | +--------+---------+ + + + | 04/30/ | Office | Sleep Medicine | Jacky Calderon PA | | | 2019 | Visit | | [address] | | | | | | [place] | | | | | | [id number] | | | | | | | [...] 116 (H)Comment: Testing | <100 pg/mL | [facility] | | | | performed on the Kathryn | | [facility] | | | | [facility] | | MEDICAL | | | [...] [address] | [place] | [phone] | | [facility] | | [address] | | | - LABORATORY | | | | + + + + + | [address] | [address] | [place], [place] | | | [facility] | | [address], [facility] | | | - LABORATORY | [...]
--- OUTSIDE RECORDS SUMMARY | ~2020-02-24 | XMS | Encounter Summary ---
Demographics + + + | Address | [address] | | | [place] [address] | + + + | Home Phone [...] + | Organization | [facility] | | | and [place] | + + + | Address | Unknown | + + + | Phone | Unavailable | + + + Support + + + + + | Name | Relationship | Address | Phone | + + + + + | [employer] | ECON | [id number] | | | | | Unknown | | + + + + + Care Team Providers + +------+ + | Care Piano Regulator Name | Role | Phone | + [...] [address] | Vera Farrra MD | | | | | [place], | | | | | | [place] [address] | | | | | | [phone] | | | +--------+ + + + [...] | | | | | [place] [address] | | | | | | [phone] | | | | | | | | +--------+---------+ + + + | 04/30/ | Office | Sleep Medicine | Jacky Calderon PA | | | 2020 | Visit | | [address] | | | | | | [place] | | | | | | [address] | | | | | | | | +--------+---------+ + + + documented as of this encounter Visit Diagnoses Not on filedocumented in this encounter"
--- OUTSIDE RECORDS SUMMARY | ~2020-02-24 | XMS | Encounter Summary ---
Demographics + + + | Address | [address] | | | [place] [address] | + + + | Home Phone [...] + | Organization | [facility] | | | and [place] | + + + | Address | Unknown | + + + | Phone | Unavailable | + + + Support + + + + + | Name | Relationship | Address | Phone | + + + + + | [employer] | ECON | [id number] | | | | | Unknown | | + + + + + Care Team Providers + +------+ + | Care Supervisor Newspaper Deliveries Name | Role | Phone | + [...] [place], | | | | | | [place] [address] | | | | | | [phone] | | | +--------+ + + + [...] | | | | | [place] [address] | | | | | | [phone] | | | | | | | | +--------+---------+ + + + | 04/30/ | Office | Sleep Medicine | Jacky Calderon PA | | | 2019 | Visit | | [address] | | | | | | [place] | | | | | | [address] | | | | | | | | +--------+---------+ + + + documented as of this encounter Visit Diagnoses Not on filedocumented in this encounter"
--- OUTSIDE RECORDS SUMMARY | ~2020-02-24 | XMS | Encounter Summary ---
Demographics + + + | Address | [address] | | | [place] [address] | + + + | Home Phone [...] + | Organization | [facility] | | | and [place] | + + + | Address | Unknown | + + + | Phone | Unavailable | + + + Support + + + + + | Name | Relationship | Address | Phone | + + + + + | [employer] | ECON | [id number] | | | | | Unknown | | + + + + + Care Team Providers + +------+ + | Care Lighter Name | Role | Phone | + [...] Farrar MD | | | | | [place], | | | | | | [place] [address] | | | | | | [phone] | | | +--------+--------+ + + + [...] | | | | | [place] [address] | | | | | | [phone] | | | | | | | | +--------+---------+ + + + | 04/30/ | Office | Sleep Medicine | Jacky Calderon PA | | | 2020 | Visit | | [address] | | | | | | [place] | | | | | | [address] | | | | | | | | +--------+---------+ + + + documented as of this encounter Visit Diagnoses Not on filedocumented in this encounter"
--- OUTSIDE RECORDS SUMMARY | ~2020-02-24 | XMS | Encounter Summary ---
Demographics + + + | Address | [address] | | | [place] [address] | + + + | Home Phone [...] | Organization | [facility] | | | and [place]am[place] | + + + | Address | Unknown | + + + | Phone | Unavailable | + + + Support + + + + + | Name | Relationship | Address | Phone | + + + + + | [employer] | ECON | [phone] | | | | | Unknown | | + + + + + Care Team Providers + +------+ + | Care Quality Assurance Group Leader Name | Role | Phone | [...] | | | [place] | [address] | | | | | [address] | [phone] | | | | | [phone] | | | +--------+ + + + [...] | | | | | [place] [address] | | | | | | [phone] | | | | | | | | +--------+---------+ + + + | 04/30/ | Office | Sleep Medicine | Jacky Calderon PA | | | 2020 | Visit | | [address] | | | | | | [place] | | | | | | [address] | | | | | | | | +--------+---------+ + + + documented as of this encounter Visit Diagnoses Not on filedocumented in this encounter"
--- OUTSIDE RECORDS SUMMARY | ~2020-02-24 | XMS | Encounter Summary ---
Demographics + + + | Address | [address] | | | [place] [address] | + + + | Home Phone [...] Organization | [facility] | | | and [place] | + + + | Address | Unknown | + + + | Phone | Unavailable | + + + Support + + + + + | Name | Relationship | Address | Phone | + + + + + | [employer] | ECON | [id number] | | | | | Unknown | | + + + + + Care Team Providers + +------+ + | Care Purification Operator Name | Role | Phone | [...] | | | Pulmonology | airway | COSTUME C[address] | MD | | | | | obstruction, | IRMA | | | | | | not | [address] | | | | | | elsewhere | [place], | | | | | | classified | [place] [address] | | | | | | Obstructive | Phone: | | | | | | sleep apnea | [phone] | | | | | | (adult) | Fax: | | | | | | (pediatric) | [phone] | | | | | | Procedures [...] MD | hypertension | | | | [place], | | (Primary Dx); COPD | | | | [place] [address] | | (chronic obstructive | | | | [phone] | | pulmonary disease); | | | [...] appoin tment to see Dr. Rivera in [place] at [facility]. I will get updated labs from [facility] and if we need to add anything, I will send orders to [facility]. Okay to liberalize fluid intake to [...] goes. You can find these inexpensively at [facility]. Turn the humidity up on your CPAP to 5. Ask the [employer] [facility] for a humidifier for the oxygen concentrator if you don't have one. [place] nasal saline spray in your nose several [...] is [facility] on [facility]. She Is using no oxygen at [...] COPD (chronic obstructive pulmonary disease) ([facility]) moderate, FEV1 1.40 (59%) Pulmonary hypertension ([facility]) severe, class 1, class 2, class 3 Bipolar disorder ([facility]) PTSD (post-traumatic stress disorder) Osteoarthritis Obstructive sleep apnea AHI 64.2 Vitamin D deficiency GERD (gastroesophageal reflux disease) Hypothyroidism Seizure disorder ([facility]) Developmental delay Hypoxemia ([facility]) on 2L at rest, 4L with exertion Female stress incontinence Pyelonephritis Hypertension Impulse control disorder Hyperlipidemia Obesity Alcohol abuse Cocaine abuse Past Surgical History Past Surgical History Procedure Laterality Date Mouth surgery 2 teeth removed Cardiac catherization Social History: History Social History Marital Status: Single Spouse Name: N/A Number of Children: N/A Years of Education: N/A Occupational History Disabled. [employer] Social History Main Topics Smoking status: Former Smoker -- 1.00 packs/day for 20 years Types: Cigarettes Quit date: 12/10/2014 Smokeless tobacco: None Comment: restarted in August 2014, quit again 12/10/14 Alcohol Use: Yes Comment: history of abuse Drug Use: Yes Special: Cocaine Comment: history of cocaine use Sexual Activity: None Other Topics Concern None Social History Narrative Lives at [place]. Allergies: Allergies Allergen Reactions Erythromycin Metronidazole Penicillins [...] TABS Take 2,000 Units by mouth Daily. [place] Starch POWD by Does not apply route [...] mg onto the skin every 24 hours. [place]-3 Fatty Acids (SEA-OMEGA 30) 1200 MG [...] exertion only during the daytime. [facility]. They are not having issues with low saturations. 6. Sleep related hypoxemia - On oxygen 5L bled in to her BiPAP machine. Plan 1. Follow up appointment to see Dr. Rivera in [place] at [facility]. 2. I will get updated labs from [facility] and if we need to add anything, I will send orders to [facility]. 3. Okay to liberalize fluid intake [...] the BiPAP to 5. 7. Ask the [employer] [facility] for a humidifier for the oxygen concentrator if they don't h ave one. 8. [place] nasal saline spray in her nose several [...] made to ensure accuracy; however, inadvertent computerized meteorological technician errors may be pre sent. documented [...] | | | | | [place] [address] | | | | | | [phone] | | | | | | | | +--------+---------+ + + + | 04/30/ | Office | Sleep Medicine | Jacky Calderon PA | | | 2019 | Visit | | [address] | | | | | | [place] | | | | | | [address] | | | | | | | [...]
--- OUTSIDE RECORDS SUMMARY | ~2020-02-24 | XMS | Encounter Summary ---
Demographics + + + | Address | [address] | | | [place] [address] | + + + | Home Phone [...] | [facility] | | | and [place] | + + + | Address | Unknown | + + + | Phone | Unavailable | + + + Support + + + + + | Name | Relationship | Address | Phone | + + + + + | [employer] | ECON | [id number] | | | | | Unknown | | + + + + + Care Team Providers + +------+ + | Care Tobacco Acreage Measurer Name | Role | Phone | + [...] | hypertension (HCC) | | | | [place], | | | | | | [place] [address] | | | | | | [phone] | | | +--------+ + + + [...] | | | | | [place] [address] | | | | | | [phone] | | | | | | | | +--------+---------+ + + + | 04/30/ | Office | Sleep Medicine | Jacky Calderon PA | | | 2020 | Visit | | [address] | | | | | | [place] | | | | | | [address] | | | | | | | | +--------+---------+ + + + documented as of this encounter Visit Diagnoses + + | Diagnosis | + + | Pulmonary hypertension (HCC) Other chronic pulmonary heart diseases | + + documented in this encounter"
--- OUTSIDE RECORDS SUMMARY | ~2020-02-24 | XMS | Encounter Summary ---
Demographics + + + | Address | [address] | | | [place] [address] | + + + | Home Phone [...] | Organization | [facility] | | | and [place] | + + + | Address | Unknown | + + + | Phone | Unavailable | + + + Support + + + + + | Name | Relationship | Address | Phone | + + + + + | [employer] | ECON | [id number] | | | | | Unknown | | + + + + + Care Team Providers + +------+ + | Care Stud Driver Name | Role | Phone | [...] | | | | | | [place] [address] | | | | | | [phone] | | | +--------+ + + + [...] | | | | | [place] [address] | | | | | | [phone] | | | | | | | | +--------+---------+ + + + | 04/30/ | Office | Sleep Medicine | Jacky Calderon PA | | | 2019 | Visit | | [address] | | | | | | [place] | | | | | | [address] | | | | | | | | +--------+---------+ + + + documented as of this encounter Visit Diagnoses Not on filedocumented in this encounter"
--- OUTSIDE RECORDS SUMMARY | ~2020-02-24 | XMS | Encounter Summary ---
Demographics + + + | Address | [address] | | | [place] [address] | + + + | Home Phone [...] | [facility] | | | and [place] | + + + | Address | Unknown | + + + | Phone | Unavailable | + + + Support + + + + + | Name | Relationship | Address | Phone | + + + + + | [employer] | ECON | [id number] | | | | | Unknown | | + + + + + Care Team Providers + +------+ + | Care Slubber Machine Operator Name | Role | Phone [...] | | | | | obstructive | MILLWORK ESTIMATOR [address] | [address] | | | | | pulmonary | [address] | [place], [place] | | | | | disease, | [place], | [address] | | | | | unspecified | [place] [address] | Phone: | | | | | (HCC) | Phone: | [phone] | | | | | Procedures | [phone] | Fax: | | | | | F/U APPT DR | Fax: | [phone] | | | | | SCOUT | [phone] | | | | | | JERSON | | | | | | | 02/21/18 | | | +--------+--------+ + + + + Encounter Details +--------+---------+ + + + | Date | Type | Department | Care Team | Description | +--------+---------+ + + + | 02/21/ | Office | [facility] | Scout Arthur, | Pulmonary | | 2018 | Visit | PULMONARY [address] | [address] | hypertension, | | | | [place], | [place] [address] | unspecified (HCC) | | | | [place] [address] | [phone] | (Primary Dx) | | | | [phone] | | | +--------+---------+ + + + [...] had been diagnosed prior to that at [facility] in [place] by Dr. Lashae Rivera whose excellent notes [...] She is not taking spironolactone. See the [facility] ed section for medications. She had an [...] from in-home medical. We spent 25 minutes [id number], at least half in counseling. Word processing [...] [address]A | | | | | | [place] [address] | | | | | | [phone] | | | | | | | | +--------+---------+ + + + | 04/30/ | Office | Sleep Medicine | Jacky Calderon PA | | | 2019 | Visit | | [address] | | | | | | [place] | | | | | | [address] | | | | | | | | +--------+---------+ + + + documented as of this encounter Visit Diagnoses + + | Diagnosis | + + | Pulmonary hypertension, unspecified (HCC) - Primary | + + documented in this encounter
--- OUTSIDE RECORDS SUMMARY | ~2020-02-24 | XMS | Encounter Summary ---
Demographics + + + | Address | [address] | | | [place] [address] | + + + | Home Phone [...] Organization | [facility] | | | and [place]am[place] | + + + | Address | Unknown | + + + | Phone | Unavailable | + + + Support + + + + + | Name | Relationship | Address | Phone | + + + + + | [employer] | ECON | [id number] | | | | | Unknown | | + + + + + Care Team Providers + +------+ + | Care Social And Political Studies Professor Name | Role | Phone | [...] S | Dx) | | | | [place], | [place] [address] | | | | | [place] [address] | [phone] | | | | | [phone] | | | +--------+ + + + [...] | | | | | [place] [address] | | | | | | [phone] | | | | | | | | +--------+---------+ + + + | 07/01/ | Office | Sleep Medicine | Jacky Calderon PA | | | 2020 | Visit | | [address] [facility] | | | | | | [place] | | | | | | [address] | | | | | | | [...] + + + + | [facility] | [address] | [place] | [phone] | | [facility] | | [address] | | | - IMAGING | | | | + + + + + documented in this encounter Visit Diagnoses + + | Diagnosis | + + | Lung nodule - Primary Solitary pulmonary nodule | + + documented in this encounter"
--- OUTSIDE RECORDS SUMMARY | ~2020-02-24 | XMS | Encounter Summary ---
Demographics + + + | Address | [address] | | | [place] [address] | + + + | Home Phone [...] + | Organization | [facility] | | | and [place] | + + + | Address | Unknown | + + + | Phone | Unavailable | + + + Support + + + + + | Name | Relationship | Address | Phone | + + + + + | [employer] | ECON | [id number] | | | | | Unknown | | + + + + + Care Team Providers + +------+ + | Care Commercial Painter Name | Role | Phone | [...] [place], [place] | | | | | [address] | [address] | | | | | [phone] | [phone] | | | | | | | [...] | | | | | [place] [address] | | | | | | [phone] | | | | | | | [...]
--- OUTSIDE RECORDS SUMMARY | ~2020-02-24 | XMS | Encounter Summary ---
Demographics + + + | Address | [address] | | | [place] [address] | + + + | Home Phone [...] | Organization | [facility] | | | and [place] | + + + | Address | Unknown | + + + | Phone | Unavailable | + + + Support + + + + + | Name | Relationship | Address | Phone | + + + + + | [employer] | ECON | [id number] | | | | | Unknown | | + + + + + Care Team Providers + +------+ + | Care Resp Therapist Name | Role | Phone | [...] | apnea; Hypoxemia | | | | [place], | | | | | | [place] [address] | | | | | | [phone] | | | +--------+ + + + [...] | | | | | [place] [address] | | | | | | [phone] | | | | | | | | +--------+---------+ + + + | 04/30/ | Office | Sleep Medicine | Jacky Calderon PA | | | 2019 | Visit | | [address] | | | | | | [place] | | | | | | [address] | | | | | | | | +--------+---------+ + + + documented as of this encounter Visit Diagnoses + + | Diagnosis | + + | Obstructive sleep apnea Obstructive sleep apnea (adult) (pediatric) | + + | Hypoxemia | + + documented in this encounter"
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
--- OUTSIDE RECORDS SUMMARY | ~2020-02-24 | XMS | Encounter Summary ---
Demographics + + + | Address | [address] | | | [place] [address] | + + + | Home Phone [...] Organization | [facility] | | | and [place] | + + + | Address | Unknown | + + + | Phone | Unavailable | + + + Support + + + + + | Name | Relationship | Address | Phone | + + + + + | Projects Horizon | ECON | [id number] | | | | | Unknown | | + + + + + Care Team Providers + +------+ + | Care Pulp Tester Name | Role | Phone | [...] + | 05/22/ | Office | [facility] | Jacky Calderon PA | Primary central | | 2015 | Visit | SLEEP DISORDER 401 | [address] | sleep apnea (Primary | | | | [address] | [place] | Dx) | | | | [place] [address] | [address] | | | | | [phone] | | | +--------+---------+ + + + [...] was: 05/21/2014 date of polysomnography: 03/13/2013 at [facility] AHI: 64.2 O2%: n/a Machine type: Respironics BiPAP Auto with ResMed Quattro FX full face mask obtained from: [employer] in [place] pressure: 16/5 cm with backup rate of [...] year, sooner prn. Fifteen minutes were spent [id number], with the majority of time spent in [...] | | | | | [place] [address] | | | | | | [phone] | | | | | | | | +--------+---------+ + + + | 04/30/ | Office | Sleep Medicine | Jacky Calderon PA | | | 2019 | Visit | | [address] | | | | | | [place] | | | | | | [phone] | | | | | | | | +--------+---------+ + + + documented as of this encounter Visit Diagnoses + + | Diagnosis | + + | Primary central sleep apnea - Primary | + + documented in this encounter"
--- OUTSIDE RECORDS SUMMARY | ~2020-02-24 | XMS | Encounter Summary ---
Demographics + + + | Address | [address] | | | [place] [address] | + + + | Home Phone [...] + + + | Author | [facility] | + + + | Organization | [facility] | + + + | Address | Unknown | + + + | Phone | Unavailable | + + + Support + + +---------+ + | Name | Relationship | Address | Phone | + + +---------+ + | Lidia Thibodeaux | ECON | Unknown | | + + +---------+ + Care Team Providers + +------+ + | Care Chinese Herbalist Name | Role | Phone | + +------+ + | Gela Trimble MAMMOGRAPHY TECH | PCP | | + +------+ + Encounter Details +--------+ + + + + | Date | Type | Department | Care Team | Description | +--------+ + + + + | 05/17/ | Agricultural Economist | Pulmonary & | Alexander Hays MD | Pulmonary | | 2012 | | Critical Care | [address] | hypertension (HCC) | | | | Medicine at | [facility], | (Primary Dx) | | | | [facility] | [place] [address] | | | | | [address] | [phone] | | | | | [address] [facility] | | | | | | Pavilion, 3rd Floor | | | | | | [place], [place] | | | | | | [address] | | | | | | [phone] | | | +--------+ + + + [...]
--- OUTSIDE RECORDS SUMMARY | ~2020-02-24 | XMS | Encounter Summary ---
Demographics + + + | Address | [address] | | | [place] [address] | + + + | Home Phone | | + + + | Preferred Language | Unknown | + + + | Marital Status | Single | + + + | Mandaeism Affiliation | NRP | + + + | Race | White | + + + | Ethnic Group | Not or | + + + Author + + + | Author | [facility] | + + + | Organization | [facility] | + + + | Address | Unknown | + + + | Phone | Unavailable | + + + Support + + +---------+ + | Name | Relationship | Address | Phone | + + +---------+ + | Lidia Thibodeaux | ECON | Unknown | | + + +---------+ + Care Team Providers + +------+ + | Care Drum Maker Name | Role | Phone | [...] | | [place], [place] | [address] | | | | | [address] | [phone] | | | | | [phone] | | | +--------+ + + + [...]
--- OUTSIDE RECORDS SUMMARY | ~2020-02-24 | XMS | Encounter Summary ---
Demographics + + + | Address | [address] | | | [place] [address] | + + + | Home Phone [...] | Organization | [facility] | | | and [place] | + + + | Address | Unknown | + + + | Phone | Unavailable | + + + Support + + + + + | Name | Relationship | Address | Phone | + + + + + | Projects Horizon | ECON | [id number] | | | | | Unknown | | + + + + + Care Team Providers + +------+ + | Care Title One Kindergarten Teacher Name | Role | Phone | [...] | | | | ABDIRASHID BROTHERS | [place], [place] | | | | | [place] | [address] | | | | | [address] | [phone] | | | | | [phone] | | | +--------+ + + + [...] | | | | | [place] [address] | | | | | | [phone] | | | | | | | | +--------+---------+ + + + | 04/30/ | Office | Sleep Medicine | Jacky Calderon PA | | | 2020 | Visit | | [address] | | | | | | [place] | | | | | | [address] | | | | | | | | +--------+---------+ + + + documented as of this encounter Visit Diagnoses Not on filedocumented in this encounter"
--- OUTSIDE RECORDS SUMMARY | ~2020-02-24 | XMS | Encounter Summary ---
Demographics + + + | Address | [address] | | | [place] [address] | + + + | Home Phone [...] Organization | [facility] | | | and [place] | + + + | Address | Unknown | + + + | Phone | Unavailable | + + + Support + + + + + | Name | Relationship | Address | Phone | + + + + + | Projects Horizon | ECON | [id number] | | | | | Unknown | | + + + + + Care Team Providers + +------+ + | Care Bad Cloth Checker Name | Role | Phone | + [...] | | | | | | [place] [address] | | | | | | [phone] | | | +--------+ + + + [...] | | | | | [place] [address] | | | | | | [phone] | | | | | | | | +--------+---------+ + + + | 04/30/ | Office | Sleep Medicine | Jacky Calderon PA | | | 2020 | Visit | | [address] | | | | | | [place] | | | | | | [address] | | | | | | | [...] [address] | [place] | [phone] | | [facility] | | [address] | | | - LABORATORY | | | | + + + + + documented in this encounter Visit Diagnoses Not on filedocumented in this encounter"
--- OUTSIDE RECORDS SUMMARY | ~2020-02-24 | XMS | Encounter Summary ---
Demographics + + + | Address | [address] | | | [place] [address] | + + + | Home Phone | | + + + | Preferred Language | Unknown | + + + | Marital Status | Single | + + + | Jainism Affiliation | [id number] | + + + | Race | Unknown | + + + | Ethnic Group | Unknown | + + + Author + + + | Author | [facility] | | | and [place] | + + + | Organization | [facility] | | | and [place] | + + + | Address | Unknown | + + + | Phone | Unavailable | + + + Support + + + + + | Name | Relationship | Address | Phone | + + + + + | Projects [employer] | ECON | [id number] | | | | | Unknown | | + + + + + Care Team Providers + +------+ + | Care Deer Farmer Name | Role | Phone | [...] | [address] [place] | [place], [place] [address] | | | | | [address] [place], [place] | [place], [place] | | | | | [address] | [address] | | | | | [phone] | | | +--------+ + + + [...] | | | | | [place] [address] | | | | | | [phone] | | | | | | | [...]
--- OUTSIDE RECORDS SUMMARY | ~2020-02-24 | XMS | Encounter Summary ---
Demographics + + + | Address | [address] | | | [place] [address] | + + + | Home Phone [...] + | Organization | [facility] | | | and [place] | + + + | Address | Unknown | + + + | Phone | Unavailable | + + + Support + + + + + | Name | Relationship | Address | Phone | + + + + + | Projects Horizon | ECON | [id number] | | | | | Unknown | | + + + + + Care Team Providers + +------+ + | Care Data Collection Interviewer Name | Role | Phone | + [...] | hypertension (HCC) | | | | [place] | [place] [address] | (Primary Dx) | | | | [place] [address] | [phone] | | | | | [phone] | | | +--------+ + + + [...] | | | | | [place] [address] | | | | | | [phone] | | | | | | | | +--------+---------+ + + + | 07/01/ | Office | Sleep Medicine | Jacky Calderon PA | | | 2020 | Visit | | [address] | | | | | | [place] | | | | | | [address] | | | | | | | [...]
--- OUTSIDE RECORDS SUMMARY | ~2020-02-24 | XMS | Encounter Summary ---
Demographics + + + | Address | [address] | | | [place] [address] | + + + | Home Phone [...] | Organization | [facility] | | | and [place] | + + + | Address | Unknown | + + + | Phone | Unavailable | + + + Support + + + + + | Name | Relationship | Address | Phone | + + + + + | [employer] Horizon | ECON | [id number] | | | | | Unknown | | + + + + + Care Team Providers + +------+ + | Care Blind Installer Name | Role | Phone | + +------+ + | Gela Trimble NP | PCP | | + +------+ + Encounter Details +--------+ + + + + | Date | Type | Department | Care Team | Description | +--------+ + + + + | 09/17/ | Hospital | [facility] | [place], | Primary pulmonary | | 2012 | Encounter | [facility] LAB[facility]ORY | Vera Farrar MD | hypertension (HCC) | | | | [address] [place] | | | | | | [place] | | | | | | [address] | | | | | | [phone] | | | +--------+ + + + [...] + + + +---------+ + + | [place] Starch POWD | by Does not apply [...] + + + +---------+ + + | [place]-3 Fatty | Take by mouth. | | [...] | | | | | [place] [address] | | | | | | [phone] | | | | | | | | +--------+---------+ + + + | 04/30/ | Office | Sleep Medicine | Jacky Calderon PA | | | 2019 | Visit | | [address] | | | | | | [place] | | | | | | [address] | | | | | | | [...] | performed on the [facility] | | [employer] [place] | | | | [facility] | | MEDICAL | | | [...] + | [facility] | [address] | [place], [place] | [phone] | | [facility] | | [address] | | | - LABORATORY | | | | + + + + + | [facility] | [address] | [place], [place] | | | [facility] | | [address], [facility] | | | - LABORATORY | | | | + + + + + documented in this encounter Visit Diagnoses + + | Diagnosis | + + | Primary pulmonary hypertension (HCC) Primary pulmonary hypertension | + + documented in this encounter"
--- OUTSIDE RECORDS SUMMARY | ~2020-02-24 | XMS | Encounter Summary ---
Demographics + + + | Address | [address] | | | [place] [address] | + + + | Home Phone [...] Organization | [facility] | | | and [place] | + + + | Address | Unknown | + + + | Phone | Unavailable | + + + Support + + + + + | Name | Relationship | Address | Phone | + + + + + | [employer] | ECON | [id number] | | | | | Unknown | | + + + + + Care Team Providers + +------+ + | Care Diesel Truck Mechanic Name | Role | Phone | [...] RN | apnea | | | | [place], | | | | | | [place] [address] | | | | | | [phone] | | | +--------+ + + + [...] | | | | | [place] [address] | | | | | | [phone] | | | | | | | | +--------+---------+ + + + | 04/30/ | Office | Sleep Medicine | Jacky Calderon PA | | | 2020 | Visit | | [address] | | | | | | [place] | | | | | | [address] | | | | | | | | +--------+---------+ + + + documented as of this encounter Visit Diagnoses + + | Diagnosis | + + | Obstructive sleep apnea Obstructive sleep apnea (adult) (pediatric) | + + documented in this encounter"
--- OUTSIDE RECORDS SUMMARY | ~2020-02-24 | XMS | Clinical Summary ---
Demographics + + + | Address | [address] | | | [place] [address] | + + + | Home Phone | | + + + | Preferred Language | Unknown | + + + | Marital Status | Single | + + + | Mu-Ism Affiliation | Unknown | + + + | Race | Unknown | + + + | Ethnic Group | Unknown | + + + Author + + + | Author | [email or web address] (Historical as of | | | 06-16-19) | + + + | Organization | [email or web address] (Historical as of | | | 06-16-19) [...] [place] | | | | | [address] | | + + + + + | Lidia Thibodeaux | ECON | Unknown | | + + + + + Care Team Providers + +------+ + | Care Marine Habitat Resource Specialist Name | Role | Phone | [...] +------+-------+ + | MEDICAID | [place] | [id number] | | | [address] | | | [place] | | | | [place] | | | [place] | | | | [address] | | | CEO & BOARD DIRECTOR | | | | | + +--------+ [...] | | karlos/Kalpesh | | 1965 | [phone] | [place] [address] | | | jammie | | | [address]: | | | | | | | | | | | | | | [phone] | | | | | | [address] | | + +--------+ +--------+ + +"
--- OUTSIDE RECORDS SUMMARY | ~2020-02-24 | XMS | Encounter Summary ---
[...] + | Author | [facility] | | | and [place] | + + + | Organization | [facility] | | | and [place] | + + + | Address | Unknown | + + + | Phone | Unavailable | + + + Support + + + + + | Name | Relationship | Address | Phone | + + + + + | Projects Horizon | ECON | [id number] | | | | | Unknown | | + + + + + Care Team Providers + +------+ + | Care Meat Supervisor Name | Role | Phone | [...] | | | | | | [place] [address] | | | | | | [phone] | | | +--------+ + + + [...] | | | | | [place] [address] | | | | | | [phone] | | | | | | | | +--------+---------+ + + + | 04/30/ | Office | Sleep Medicine | Jacky Calderon PA | | | 2019 | Visit | | [address] | | | | | | [place] | | | | | | [address] | | | | | | | | +--------+---------+ + + + documented as of this encounter Visit Diagnoses Not on filedocumented in this encounter"
--- OUTSIDE RECORDS SUMMARY | ~2020-02-24 | XMS | Encounter Summary ---
Demographics + + + | Address | [address] | | | [place] [address] | + + + | Home Phone [...] Organization | [facility] | | | and [place] | + + + | Address | Unknown | + + + | Phone | Unavailable | + + + Support + + + + + | Name | Relationship | Address | Phone | + + + + + | Projects Horizon | ECON | [id number] | | | | | Unknown | | + + + + + Care Team Providers + +------+ + | Care Payroll Analyst Name | Role | Phone | + +------+ + | Gela Trimble NP | PCP | | + +------+ + Encounter Details +--------+ + + + + | Date | Type | Department | Care Team | Description | +--------+ + + + + | 12/12/ | [facility] | [facility] | Jacky Calderon PA | | | 2013 | Encounter | MED CTR SLEEP | [address] | | | | | CENTER [address] | [place] | | | | | [place] | [address] | | | | | [address] | | | | | | [phone] | | | +--------+ + + + [...] + + + +---------+ + + | [place] Starch POWD | by Does not apply [...] + + +---------+ + + | [place]-3 Fatty | Take by mouth. | | [...] | | | | | [place] [address] | | | | | | [phone] | | | | | | | | +--------+---------+ + + + | 04/30/ | Office | Sleep Medicine | Jacky Calderon PA | | | 2019 | Visit | | [address] | | | | | | [place] | | | | | | [address] | | | | | | | | +--------+---------+ + + + documented as of this encounter Visit Diagnoses Not on filedocumented in this encounter"
--- OUTSIDE RECORDS SUMMARY | ~2020-02-24 | XMS | Encounter Summary ---
Demographics + + + | Address | [address] | | | [place] [address] | + + + | Home Phone [...] | [facility] | | | and [place] | + + + | Organization | [facility] | | | and [place] | + + + | Address | Unknown | + + + | Phone | Unavailable | + + + Support + + + + + | Name | Relationship | Address | Phone | + + + + + | Projects Horizon | ECON | [id number] | | | | | Unknown | | + + + + + Care Team Providers + +------+ + | Care Quality Systems Engineer Name | Role | Phone | [...] | [address] [place] | [place], [place] [address] | | | | | [address] [place], [place] | [place], [place] | | | | | [address] | [address] | | | | | [phone] | | | +--------+--------+ + + + [...] | | | | | [place] [address] | | | | | | [phone] | | | | | | | | +--------+---------+ + + + | 04/30/ | Office | Sleep Medicine | Jacky Calderon PA | | | 2020 | Visit | | [address] | | | | | | [place] | | | | | | [address] | | | | | | | | +--------+---------+ + + + documented as of this encounter Visit Diagnoses Not on filedocumented in this encounter"
--- OUTSIDE RECORDS SUMMARY | ~2020-02-24 | XMS | Encounter Summary ---
Demographics + + + | Address | [address] | | | [place] [address] | + + + | Home Phone [...] | Organization | [facility] | | | and [place] | + + + | Address | Unknown | + + + | Phone | Unavailable | + + + Support + + + + + | Name | Relationship | Address | Phone | + + + + + | [employer] | ECON | [id number] | | | | | Unknown | | + + + + + Care Team Providers + +------+ + | Care Stacking Machine Operator Name | Role | Phone [...] | | | | ABDIRASHID BROTHERS | [place], [place] | | | | | [place] | [address] | | | | | [address] | [phone] | | | | | [phone] | | | +--------+ + + + [...] | | | | | [place] [address] | | | | | | [phone] | | | | | | | | +--------+---------+ + + + | 04/30/ | Office | Sleep Medicine | Jacky Calderon PA | | | 2020 | Visit | | [address] | | | | | | [place] | | | | | | [address] | | | | | | | | +--------+---------+ + + + documented as of this encounter Visit Diagnoses Not on filedocumented in this encounter"
--- OUTSIDE RECORDS SUMMARY | ~2020-02-24 | XMS | Encounter Summary ---
Demographics + + + | Address | [address] | | | [place] [address] | + + + | Home Phone [...] | Organization | [facility] | | | and [place] | + + + | Address | Unknown | + + + | Phone | Unavailable | + + + Support + + + + + | Name | Relationship | Address | Phone | + + + + + | Projects Horizon | ECON | [id number] | | | | | Unknown | | + + + + + Care Team Providers + +------+ + | Care Basic Acoustic Analyst Name | Role | Phone | [...] | | | | ABDIRASHID BROTHERS | [place], [place] | | | | | [place] | [address] | | | | | [address] | [phone] | | | | | [phone] | | | +--------+ + + + [...] | | | | | [place] [address] | | | | | | [phone] | | | | | | | | +--------+---------+ + + + | 04/30/ | Office | Sleep Medicine | Jacky Calderon PA | | | 2020 | Visit | | [address] | | | | | | [place] | | | | | | [address] | | | | | | | | +--------+---------+ + + + documented as of this encounter Visit Diagnoses Not on filedocumented in this encounter"
--- OUTSIDE RECORDS SUMMARY | ~2020-02-24 | XMS | Encounter Summary ---
Demographics + + + | Address | [address] | | | [place] [address] | + + + | Home Phone | | + + + | Preferred Language | Unknown | + + + | Marital Status | Single | + + + | Scientology Affiliation | NRP | + + + | Race | White | + + + | Ethnic Group | Not or | + + + Author + + + | Author | [facility] | + + + | Organization | [facility] | + + + | Address | Unknown | + + + | Phone | Unavailable | + + + Support + + +---------+ + | Name | Relationship | Address | Phone | + + +---------+ + | Lidia Thibodeaux | ECON | Unknown | | + + +---------+ + Care Team Providers + +------+ + | Care [employer] Director Name | Role | Phone | + +------+ + | Gela Trimble BOATSWAINS MATE | PCP | | + +------+ + [...] | pulmonary | Nadja Solomon | [place], | | | | | heart | [place], [place] | [place] | | | | | diseases | [address] | [address] | | | | | Procedures | Phone: | Phone: | | | | | CONSULT TO | [phone] | [phone] | | | | | PULMONARY | Fax: | Fax: | | | | | | [phone] | [phone] | +--------+--------+ + + + + Diagnostic [...] | | | | | | | [place], [place] | | | | | | | [address] | | | | | | | Phone: | | | | | | | [phone] | | | | | | | Fax: | | | | | | | [phone] | | +--------+--------+ + + + + [...] | | | | Hansel Hein, | [facility] [address] | | | | | TRANSTHORACI | MD [address] | | | | | C | [address] | [address] | | | | | [address] | [address] | [place] | | | | | AM, ADULT | [place], [place] | [facility] [place] | | | | | | [address] | floor | | | | | | | [place], [place] | | | | | | | [address] | | | | | | | Phone: | | | | | | | [phone] | +--------+--------+ + + + + Reason [...] | | | | | | | [address] [facility] | | | | | | | [address] | | | | | | | Mushtaq Mailcode: | | | | | | | [address] [facility] | | | | | | | Hospital | | | | | | | [place], [place] | | | | | | | [address] | | | | | | | Phone: | | | | | | | [phone] | | | | | | | Fax: | | | | | | | [phone] | +--------+--------+ + + + + Encounter Details +--------+ + + + + | Date | Type | Department | Care Team | Description | +--------+ + + + + | 05/02/ | Hospital | [facility] 14B MEDICINE | Lenora Lawson MD | | | 2012 - | Encounter | [address] | [address] | | | | | Nadja Solomon Mailcode: | Nadja Solomon [place], | | | 05/12/ | | [address] [facility] | [place] [address] | | | 2012 | | [place], [place] | [phone] | | | | | [address] | | | | | | [phone] | Agus Jiang, | | | | | | [address] | | | | | | [address] | | | | | | [place], [place] | | | | | | [address] | | | | | | [phone] | | | | | | | [...] interventricular septum. RVSP 75 +. Transferred to [facility] from OSH ED on after presenting with [...] to 100/80s. Initial vitals on arrival at [facility] were T 36.6 BP 110/69 P 74 [...] ensure proper diuresis -pt will f/u with sponge clipper- [facility]y in [place] #. Pulmonary hypertension, idiopathic- diagnosis confirmed via [...] mg by mouth once daily in the [facility] katarzyna. cetirizine 10 mg Oral tablet [...] Apply 1 Patch to skin once daily. [place]-3 Fatty Acids-Vitamin E (FISH OIL) 1,000 mg [...] SNF physician to follow, Dr. Ansari from [facility] -spoke to PCP and spoke over hospital course and f/u plans -will have pulm f.u here at [facility] as no pulm htn specialist in [place], to be arranged -asked PCP, who had been managing seizure d/o to arrange for neurology f/u in [place] (a greed) -pt will f/u with sponge clipper- [facility] Langley in [place] Outstanding labs/studies: none Cristine Freeman MD Internal Medicine Resident Pager [phone] Jessica Lopez MD Anesthesiology, PGY-1 Pager [phone] documented in t his encounter Medications at [...] + + + +---------+ + + | [place]-3 Fatty | Take 1 Cap by mouth [...] 4. Dispo - d/c to SNF near [place] for rehab. Taty Bucio MD, MPH supervisor prop making [facility] DEPARTMENT: [id number]- [facility] P[facility] Place of Service:- Inpatient Date of Service: 05/12/2013 CSN: [id number] Suggested Modifiers:GC- Resident present for procedure Suggested CPT: 95316- Discharge < 30 min Too Lechuga MD [...] rehab -plan for transport tomorrow 11am to [facility] -spoke with Dr. Ansari (family med at [facility]), physician to take care of p t at SNF -outpt meds: lasix 80mg PO BID, 40mEq KCl tab daily Agus Jiang MD saw and evaluated this patient and aggress with my assessment and plan as documented above. Jessica Lopez MD Anesthesiology, PGY-1 Pager [phone] Agus Sandoval MD - 05/11/2013 4:10 PM [...] set up for tomorrow. AGUS JIANG MD Jacquard Card Lacermusic education director Division of Hospital Medicine Department of Internal Medicine [facility] DEPARTMENT: Hosp- [id number] Place of Service: - Date of Service: 05/11/2013 CSN: [id number] Modifiers:GC Resident Involved: Yes Suggested CPT: 64484 Subsequent Visit Exp Prob Foc/Mod Complexity 25 [...] Agus Farrar MD - 05/10/2013 11:41 AM [facility] 4 GENERAL MEDICINE ATTENDING PROGRESS NOTE ADMIT DATE: 05/02/2013 8:40 PM TODAY'S DATE: 05/10/2013 (HOSPITAL DAY 8) I personally interviewed the patient, performed the beverly elements of the physical examinatio n, reviewed new lab data in EPIC, looked at any new radiology images and have developed an u pdated assessment and plan together with the 4 residents, Dr. Lopez/Lydia. Please see [facility] housestaff notes for full details. I agree with their note with the following additions/ex ceptions. Assessment and Plans Patient Active Hospital Problem List: 1) *Right heart failure due to pulmonary hypertension: Still unclear cause of PulmHTN. Cou ld still be related to GLORIA, will review results of initial sleep study showing severe AHI [facility] pulmonology. RHC today. IF wedge pressure is [...] disorder 11) Developmental delay AGUS JIANG MD Jacquard Card Lacermusic education director Division of Hospital Medicine Department of Internal Medicine [facility] DEPARTMENT: Hosp- [id number] Place of Service: - [id number] Date of Service: 05/10/2013 CSN: [id number] Modifiers:GC Resident Involved: Yes Suggested CPT: 26263 Subsequent Visit Detailed/High complexity 35 min azo, [...] above. Jessica Lopez MD Anesthesiology, PGY-1 Pager [phone] lements, Agus Farrar MD - 05/09/2013 3:08 [...] disorder 11) Developmental delay AGUS JIANG MD Jacquard Card Lacermusic education director Division of Hospital Medicine Department of Internal Medicine [facility] DEPARTMENT: Hosp- [id number] Place of Service: - Date of Service: 05/09/2013 CSN: [id number] Modifiers:GC Resident Involved: Yes Suggested CPT: 71530 Subsequent Visit Exp Prob Foc/Mod Complexity 25 [...] pending better optimization of fluid status, hopeful [facility] Code Status:} Full Code -:Interval Hx:- [...] and plan. Cristine Freeman Internal Medicine Resident [id number] lements, Johan Farrar MD - 05/08/2013 2:00 [...] the 4 residents, Dr. Lopez/Lydia. Please see [facility] housestaff notes for full details. I [...] disorder 11) Developmental delay AGUS JIANG MD Jacquard Card Lacermusic education director Division of Hospital Medicine Department of Internal Medicine [facility] DEPARTMENT: Hosp- [id number] Place of Service: - [id number] Date of Service: 05/08/2013 CSN: [id number] Modifiers:GC Resident Involved: Yes Suggested CPT: 92657 Subsequent Visit Exp Prob Foc/Mod Complexity 25 [...] above. Jessica Lopez MD Anesthesiology, PGY-1 Pager [phone] lements, Agus Farrar MD - 05/07/2013 4:36 [...] disorder 11) Developmental delay AGUS JIANG MD Jacquard Card Lacermusic education director Division of [facility] Medicine Department of Internal Medicine [facility] DEPARTMENT: Hosp- [id number] Place of Service: IP - Date of Service: 05/07/2013 CSN: [id number] Modifiers:GC Resident Involved: Yes Suggested CPT: 46499 Subsequent Visit Exp Prob Foc/Mod Complexity 25 [...] above. Jessica Lopez MD Anesthesiology, PGY-1 Pager [phone] lechano, Agus Farrar MD - 05/06/2013 7:47 [...] the 4 residents, [address]. Lopez/Lydia. Please see [facility] housestaff notes for full details. I agree with their note with the following additions/ex ceptions. History: Exam: BP 102/55 | Pulse 72 | Temp 36.6 C (97.9 F) | RR 16 | Ht 1.499 m (4' 11") | Wt 105.7 kg (233 lb 0.4 oz) | SpO2 95% | BMI 47.04 kg/(m^2) No distress JVP difficult to assess [place] edema still present in the legs. Assessment [...] disorder 11) Developmental delay AGUS JIANG MD Jacquard Card Lacermusic education director Division of Hospital Medicine Department of Internal Medicine [facility] DEPARTMENT: Hosp- [id number] Place of Service: Date of Service: 05/06/2013 CSN: [id number] Modifiers:GC Resident Involved: Yes Suggested CPT: 84169 Subsequent Visit Exp Prob Foc/Mod Complexity 25 [...] above. Jessica Lopez MD Anesthesiology, PGY-1 Pager [phone] Agus Sandoval MD - 05/05/2013 2:15 PM [facility] 4 GENERAL MEDICINE ATTENDING PROGRESS NOTE [...] disorder 11) Developmental delay AGUS JIANG MD Jacquard Card Lacermusic education director Division of Hospital Medicine Department of Internal Medicine [facility] DEPARTMENT: Hosp- [id number] Place of Service: IP - Date of Service: 05/05/2013 CSN: [id number] Modifiers:GC Resident Involved: Yes Suggested CPT: 54852 Subsequent Visit Exp Prob Foc/Mod Complexity 25 [...] above. Jessica Lopez MD Anesthesiology, PGY-1 Pager [phone] Jay Jay Howell MD - 05/04/2013 5:22 [...] Jay Grimaldo MD Internal Medicine, PGY-3 Pager [phone] Deion Lomeli - 2012 4:52 PM PDTTransthoracic [...] 4 residents, Dr. Lopez/Dillan. Please see the [facility] notes for full details. I [...] disorder 11) Developmental delay AGUS JIANG MD Jacquard Card Lacermusic education director Division of Hospital Medicine Department of Internal Medicine [facility] DEPARTMENT: Hosp- [id number] Place of Service: IP - [id number] Date of Service: 05/04/2013 CSN: [id number] Modifiers:GC Resident Involved: Yes Suggested CPT: 32593 Subsequent Visit Exp Prob Foc/Mod Complexity 25 [...] Hamlin MD Department of Neurology PGY-1 Pager [phone] PGY-4 Addendum I can follow as her [...] she knew where she was, she said "[facility]." She thought it to be 2008. [...] Jay Grimaldo MD Internal Medicine, PGY-3 Pager [phone] viva Cervantes - 2012 2:19 PM PDT INPATIENT PROGRESS NOTE Hospital Day:2 Author: AVIVA CERVANTES Attending Physician: Agus Jiang MD 24-hour events -- Episode of seizure with full body shaking 20s in duration per nursing report. [facility], found to be post-ictal (AxO [...] subsequently started on phenytoin. Last seizure per director of emergency nursing was 03/26 but director of emergency nursing was unaware that she had a seizure [...] assessment and plan. Aviva Cervantes MS4, Pager [phone] azo, Too Bruno MD - 05/03/2013 1:52 [...] to knee B/L, +1 edema up to shelter c nursing home b/l Psychiatric: appropriate mood [...] above. Jessica Lopez MD Anesthesiology, PGY-1 Pager [phone] documented in this enco unter Plan of [...] | + + + + + | [facility] | [address] | [place] [address] | | | SERVICES, CORE | NADJA [...] | + + + + + | [facility] | [address] | [place] [address] | | | JULIETA, ELMER | NADJA [...] | | | LABORATORY | | | MACEDONIAN | | | SERVICES, | | | [...] ANION GAP | 10 | mmol/L | [facility] | | | | | | LABORATORY [...] | + + + + + | [facility] | [address] [facility] [facility] | [place] [address] | | | SERVICES, [place] | NADJA [...] [facility] | [address] | [place] [address] | | | SERVICES, CORE | PARK [...] [facility] | [address] | [place] [address] | | | SERVICES, CORE | PARK [...] | + + + + + | [facility] | [address] | [place] [address] | | | SERVICES, CORE | PARK [...] | + + + + + | [facility] | [address] [facility] [facility] | [place] [address] | | | SERVICES, [place] | NADJA [...] | | | LABORATORY | | | MACEDONIAN | | | SERVICES, | | | [...] [facility] | [address] | [place] [address] | | | SERVICES, CORE | PARK [...] | + + + + + | [facility] | [address] | [place] [address] | | | SERVICES, CORE | [address] | | | + + + + + MAGNESIUM, PLASMA (05/10/2013 7:36 AM PDT) + +-------+ + + + | Component | Value | Ref Range | Performed | Pathologist | | | | | At | Signature | + +-------+ + + + | MAGNESIUM,P | 1.9 | 1.8 - 2.5 mg/dL | [facility] | | | LASMA | | | [...] | + + + + + | [facility] | [address] | [place] [address] | | | SERVICES, CORE | PARK [...] | | | LABORATORY | | | MACEDONIAN | | | SERVICES, | | | [...] ANION GAP | 8 | mmol/L | [facility] | | | | | | LABORATORY [...] | + + + + + | [facility] | [address] | [place] [address] | | | SERVICES, CORE | NADJA [...] by | | | | | | ZOCKO,[address] | | | | | | Lázaro Carter, [facility] | | | | | | [address] | | | | | | [phone].[employer]. | | | | | | Zane [...] [facility] | [address] | [place], [place] | | | [facility] | | [address] | | + + + + + [...] + | [facility] - | [address] | [place] [address] | | | [place] | | | [...] [facility] | [address] | [place] [address] | | | SERVICES, SPECIAL | PARK [...] [facility] | [address] | [place] [address] | | | SERVICES, CORE | PARK [...] [facility] | [address] | [place] [address] | | | SERVICES, CORE | PARK [...] | | | LABORATORY | | | MACEDONIAN | | | SERVICES, | | | [...] the MDRD equation recommended by the | [facility] | | National Kidney Disease Education Program. [...] | + + + + + | [facility] | [address] | [place] [address] | | | SERVICES, CORE | PARK [...] [facility] | [address] | [place] [address] | | | SERVICES, CORE | NADJA [...] | | | LABORATORY | | | MACEDONIAN | | | SERVICES, | | | [...] Information: <60 mL/min/1.73 sq m | SERVICES, [facility] | | Chronic Kidney Disease <15 mL/min/1.73 [...] | + + + + + | [facility] | [address] | [place] [address] | | | [facility] | [address] | | | + [...] | + + + + + | [facility] | [address] | [place] [address] | | | SERVICES, CORE | NADJA [...] + + + + + + | FZE67-89% | 0.75 | 2.52 L/sec | [facility] | | | PRE | | | SPECIAL | | | | | | DIAGNOSTICS | | | | | | - | | | | | | PULMONARY | | | | | | FUNCTION | | + + + + + + | FTI47-45% | 30 | % | [facility] | [...] [facility] | | | INTERPRETAT | ID# [id number] | | SPECIAL | | | ION [...] B | | | | | | Peanut Sorter: | | | | | | Katty [...] | | | | | | Order# [id number] | | | | | | | [...] | | | | | | 68 08HFK86-97% | | | | | | L/sec 2.52 | | | | | | 0.75 | | | | | | [id number] L/sec | | | | | | | | | | | | 0.75PEF | | | | | | L/sec 6.04 | | | | | | 2.67 10NTU17% | | | | | | L/sec [...] ID: | | | | | | [id number] | | | | | | Date: [...] [facility] | [address] | [place], [place] | | | DIAGNOSTICS - | [address] | [address] | | | PULMONARY FUNCTION | | [...] LABORATORY | [address] | [place] [address] | | | SERVICES, CORE | PARK [...] [facility] | [address] | [place] [address] | | | SERVICES, CORE | PARK [...] | | | LABORATORY | | | MACEDONIAN | | | SERVICES, | | | [...] the MDRD equation recommended by the | [facility] | | National Kidney Disease Education Program. [...] | + + + + + | [facility] | [address] | [place] [address] | | | SERVICES, CORE | PARK [...] [facility] | [address] | [place] [address] | | | SERVICES, CORE | PARK [...] [facility] | [address] | [place] [address] | | | SERVICES, CORE | PARK [...] | + + + + + | [facility] | [address] [facility] [facility] | [place] [address] | | | SERVICES, [place] | NADJA [...] | | | LABORATORY | | | MACEDONIAN | | | SERVICES, | | | [...] | + + + + + | [facility] | [address] | [place] [address] | | | SERVICES, CORE | PARK [...] | + + + + + | [facility] | [address] | [place] [address] | | | JULIETA, CORE | NADJA [...] [facility] | [address] | [place] [address] | | | SERVICES, CORE | NADJA [...] [facility] | [address] | [place] [address] | | | SERVICES, CORE | PARK [...] | + + + + + | [facility] | [address] [facility] [facility] [facility] | [place] [address] | | | SERVICES, CORE | NADJA [...] | | | LABORATORY | | | MACEDONIAN | | | SERVICES, | | | [...] | + + + + + | [facility] | [address] | [place] [address] | | | SERVICES, CORE | NADJA [...] (H) | 60 - 99 mg/dL | [facility] - | | | GLUCOSE, | | [...] [facility] | [address] | [place], [place] | | | ALONSO CASTILLO OF CARE | [address] | [address] | | | TESTS | | | [...] [facility] | [address] | [place] [address] | | | SERVICES, CORE | PARK [...] [facility] | [address] | [place] [address] | | | SERVICES, CORE | PARK [...] | + + + + + | [facility] | [address] | [place] [address] | | | SERVICES, CORE | PARK [...] | + + + + + | [facility] | [address] | [place] [address] | | | SERVICES, CORE | NADJA [...] | | | LABORATORY | | | MACEDONIAN | | | SERVICES, | | | [...] | + + + + + | [facility] | [address] | [place] [address] | | | SERVICES, CORE | [address] | | | + + + + + EEG ROUTINE (05/04/2013) + + + | Narrative | Performed At | + + + | Patient Name: Keo Rowley Date of : 1965 Medical | [facility] - | | Record Number: [id number] Date of Test: 05/04/2013 Place of Service: | JJ BUTLER, | | [facility] [phone] [facility] Department: EEG PSYCHIATRIC - [id number] | POINT OF CARE | | ROUTINE [...] Modifier: GC - Resident Present Suggested CPT: 06273 - EEG Routine | | | Awake Only Suggested Dx: 780.39 - Convulsions | | + + + + + + + + | Performing | Address | City/State/Zipcode | Phone Number | | Organization | | | | + + + + + | [facility] | [address] | [place], [place] | | | [facility] | [address] | [address] | | | TESTS | | | [...] | + + + + + | [facility] | [address] | [place] [address] | | | SERVICES, CORE | PARK [...] | | | LABORATORY | | | MACEDONIAN | | | SERVICES, | | | [...] | + + + + + | [facility] | [address] | [place] [address] | | | [place] RENDON | NADJA [...] | [facility] | | Test performed by: [employer] [address] | REFERENCE LAB | | [place] [address] | | + + + + + [...] | + + + + + | [facility] | [address] | [place] [address] | | | SERVICES, CORE | NADJA [...] | + + + + + | [facility] - | [address] | [place] [address] | | | [facility] | | | | + [...] [facility] | [address] | [place] [address] | | | SERVICES, CORE | PARK [...] [facility] | [address] | [place] [address] | | | SERVICES, CORE | PARK [...] | + + + + + | [facility] | [address] | [place] [address] | | | EL[place] RENDON | [address] [...] | + + + + + | [facility] | [address] [facility] [facility] [facility] | [place] [address] | | | SERVICES, CORE | [address] [...] | | | LABORATORY | | | MACEDONIAN | | | SERVICES, | | | [...] | + + + + + | [facility] | [address] | [place] [address] | | | SERVICES, CORE | PARK [...] + | [facility] - | [address] | [place] [address] | | | [place] | | | [...] | + + + + + | [facility] - | [address] | [place] [address] | | | [place] | | | [...] view image for the detailed interpretation from [employer] results. | CARDIOLOGY | + + + + + | Procedure Note | + + | Interface, Cardiology Results - 05/24/2013 9:44 PM PDT Please click on view image | | for the detailed interpretation from [employer] results. | + + + + + + + | Performing | Address | City/State/Zipcode | Phone Number | | Organization | | | | + + + + + | [facility] | [address] | [place], [place] | | | CARDIOLOGY | [address] | [address] | | + + + + + [...] GALVAN | | | | | | ([phone]) on 05/04/2013 | | | | | | 11:36:09 AM | | | | + + + + + + + + | Specimen | + + | | + + + + + | Narrative | Performed At | + + + | Please click | [facility] | | on view image for the detailed interpretation from [employer] results. | CARDIOLOGY | + + + + + | Procedure Note | + + | Interface, Cardiology Results - 05/04/2013 11:36 AM PDT Please click on view image | | for the detailed interpretation from [employer] results. | + + + + + + + | Performing | Address | City/State/Zipcode | Phone Number | | Organization | | | | + + + + + | [facility] | [address] | [place], [place] | | | CARDIOLOGY | [address] | [address] | | + + + + + [...] | + + + + + | [facility] | [address] | [place] [address] | | | SERVICES, EL[place] | NADJA [...] | + + + + + | [facility] | [address] | [place] [address] | | | SERVICES, CORE | PARK [...] | + + + + + | [facility] | [address] | [place] [address] | | | SERVICES, CORE | PARK [...] | | | LABORATORY | | | MACEDONIAN | | | SERVICES, | | | [...] | + + + + + | [facility] | [address] | [place] [address] | | | SERVICES, CORE | NADJA [...] | | | | | dose on [facility] 05/03/13 at 0900, Until | | | [...] | | | | First dose on [facility] 05/03/13 at 0900, | | | | [...] | | | oral, ONCE, 1 dose, [facility] 05/10/13 | | AM PDT | | [...] | | | BEDTIME, First dose on [facility] 05/03/13 | | PM PDT | | [...]
--- OUTSIDE RECORDS SUMMARY | ~2020-02-24 | XMS | Encounter Summary ---
Demographics + + + | Address | [address] | | | [place] [address] | + + + | Home Phone [...] | Organization | [facility] | | | and Abram[place] | + + + | Address | Unknown | + + + | Phone | Unavailable | + + + Support + + + + + | Name | Relationship | Address | Phone | + + + + + | [employer] | ECON | [id number] | | | | | Unknown | | + + + + + Care Team Providers + +------+ + | Care Senior Capital Markets Specialist Name | Role | Phone | [...] Farrar MD | | | | | [place], | | | | | | [place] [address] | | | | | | [phone] | | | +--------+--------+ + + + [...] | | | | | [place] [address] | | | | | | [phone] | | | | | | | | +--------+---------+ + + + | 04/30/ | Office | Sleep Medicine | Jacky Calderon PA | | | 2019 | Visit | | [address] | | | | | | [place] | | | | | | [id number] | | | | | | | | +--------+---------+ + + + documented as of this encounter Visit Diagnoses Not on filedocumented in this encounter"
--- OUTSIDE RECORDS SUMMARY | ~2020-02-24 | XMS | Encounter Summary ---
Demographics + + + | Address | [address] | | | [place] [address] | + + + | Home Phone [...] | Organization | [facility] | | | and [place]am[place] | + + + | Address | Unknown | + + + | Phone | Unavailable | + + + Support + + + + + | Name | Relationship | Address | Phone | + + + + + | Projects Horizon | ECON | [id number] | | | | | Unknown | | + + + + + Care Team Providers + +------+ + | Care Baseball Scout Name | Role | Phone | + [...] diseases (HCC) | | | | [place] [address] | | (Primary Dx); | | | | [phone] | | Chronic airway | | | | | | obstruction, not | | | | | | elsewhere classified | | | | | | ([facility]) | +--------+ + + + + Social [...] | | | | | | [place] [address] | | | | | | [phone] | | | | | | | | +--------+---------+ + + + | 04/30/ | Office | Sleep Medicine | Jacky Calderon PA | | | 2020 | Visit | | [address] | | | | | | [place] | | | | | | [address] | | | | | | | [...] 06/15/2013 | | | | | diseases ([facility]) | until 06/15/2014 | | | | | Chronic airway | | | | | | obstruction, not | | | | | | elsewhere classified | | | | | | ([facility]) | | + + +--------+ + + documented as of this encounter Visit Diagnoses + + | Diagnosis | + + | Other chronic pulmonary heart diseases - Primary | + + | Chronic airway obstruction, not elsewhere classified | + + documented in this encounter"
--- OUTSIDE RECORDS SUMMARY | ~2020-02-24 | XMS | Encounter Summary ---
Demographics + + + | Address | [address] | | | [place] [address] | + + + | Home Phone | | + + + | Preferred Language | Unknown | + + + | Marital Status | Single | + + + | Roman Catholic Affiliation | NRP | + + [...] Team Providers + +------+ + | Care Spice Mixer Name | Role | Phone | [...] Pavilion | | | | | | [address] | | | | | | Loop Physician's | | | | | | [place], [address] [place] [address] | | | | | | [place], [place] | | | | | | [address] | | | | | | [phone] | | | +--------+ + + + [...]
--- OUTSIDE RECORDS SUMMARY | ~2020-02-24 | XMS | Encounter Summary ---
Demographics + + + | Address | [address] | | | [place] [address] | + + + | Home Phone [...] + | Organization | [facility] | | | and [place]am[place] | + + + | Address | Unknown | + + + | Phone | Unavailable | + + + Support + + + + + | Name | Relationship | Address | Phone | + + + + + | Projects Horizon | ECON | [id number] | | | | | Unknown | | + + + + + Care Team Providers + +------+ + | Care Machine Adjuster Helper Name | Role | Phone | + +------+ + | Yuni Shrestha | PCP | | + +------+ + Encounter Details +--------+ + + + + | Date | Type | Department | Care Team | Description | +--------+ + + + + | 06/30/ | Abstract | [facility] [place] | [facility], | | | 2015 | | GASTROENTEROLOGY | BRITTANY Maddox [address] | | | | | [address] [place] | [place], [place] [address] | | | | | [address] [place], [place] | [place], [place] | | | | | [address] | [address] | | | | | [phone] | | | +--------+ + + + [...] | | | | | [place] [address] | | | | | | [phone] | | | | | | | | +--------+---------+ + + + | 04/30/ | Office | Sleep Medicine | [place], Jacky D, PA | | | 2020 | Visit | | [address] [place] [address] | | | | | | [place] | | | | | | [address] | | | | | | | [...]
--- OUTSIDE RECORDS SUMMARY | ~2020-02-24 | XMS | Encounter Summary ---
Demographics + + + | Address | [address] | | | [place] [address] | + + + | Home Phone [...] | [facility] | | | and [place] | + + + | Address | Unknown | + + + | Phone | Unavailable | + + + Support + + + + + | Name | Relationship | Address | Phone | + + + + + | Projects [employer] | ECON | [id number] | | | | | Unknown | | + + + + + Care Team Providers + +------+ + | Care Engineering Systems Analyst Name | Role | Phone [...] | | | | ABDIRASHID BROTHERS | [place], [place] | | | | | [place] | [address] | | | | | [address] | [phone] | | | | | [phone] | | | +--------+ + + + [...] | | | | | [place] [address] | | | | | | [phone] | | | | | | | | +--------+---------+ + + + | 04/30/ | Office | Sleep Medicine | Jacky Calderon PA | | | 2020 | Visit | | [address] | | | | | | [place] | | | | | | [address] | | | | | | | | +--------+---------+ + + + documented as of this encounter Visit Diagnoses Not on filedocumented in this encounter"
--- OUTSIDE RECORDS SUMMARY | ~2020-02-24 | XMS | Encounter Summary ---
Demographics + + + | Address | [address] | | | [place] [address] | + + + | Home Phone [...] Providers + +------+ + | Care Senior Asic Engineer Name | Role | Phone | [...] | | | | Melanocytic | Yuni, MANAGER OPERATIONAL | Marivel C, | | | | | nevi, | [facility] | ,PhD 1936 | | | | | unspecified | Terence | [place] | | | | | | Family Care | [place], | | | | | | [address] | [place] [address] | | | | | | Terence Carter | Phone: | | | | | | [place], | [phone] | | | | | | [place] [address] | Fax: | | | | | | Phone: | [phone] | | | | | | [phone] | | | | | | | Fax: | | | | | | | [phone] | | +--------+--------+ + + + + Encounter Details +--------+---------+ + + + | Date | Type | Department | Care Team | Description | +--------+---------+ + + + | 07/19/ | Office | Dermatology at | Marivel Rao, | Nevus (Primary Dx) | | 2015 | Visit | [facility] | ,PhD 1936 | | | | | Clinic [address] | [address] [place], [place] | | | | | [place], [place] | [address] | | | | | [address] | [phone] | | | | | [phone] | | | +--------+---------+ + + + [...] skin cance rs including melanoma. ? The [place] [employer] (AAD) recommends you wear [...] information is available at the following websites: http://www.[email or web address]/xd/health/services/dermatology/for-patients/health_info.cfm - [facility] Derm atology http://www.aad.org/public/sun/smart.html - AAD [...] cancer. 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 Vega skin type II. She does occasionally [...] fail to improve. Marivel Rao M.D. Ph.D. High School Social Science Teacher Department of Dermatology [facility] ([facility] Dermatology documented in th is encounter Plan of Treatment Not on filedocumented as of this encounter Visit Diagnoses + + | Diagnosis | + + | Nevus - Primary Benign neoplasm of skin, site unspecified | + + documented in this encounter
--- OUTSIDE RECORDS SUMMARY | ~2020-02-24 | XMS | Encounter Summary ---
Demographics + + + | Address | [address] | | | [place] [address] | + + + | Home Phone [...] and Services [facility] | | | and [place] | + + + | Organization | [facility] | | | and [place]am[place] | + + + | Address | Unknown | + + + | Phone | Unavailable | + + + Support + + + + + | Name | Relationship | Address | Phone | + + + + + | [employer] | ECON | [id number] | | | | | Unknown | | + + + + + Care Team Providers + +------+ + | Care Jewelry Sales Name | Role | Phone | + [...] + + | 09/25/ | Office | [facility] | Jacky Calderon PA | Primary central | | 2012 | Visit | SLEEP DISORDER [address] | [address] | sleep apnea (Primary | | | | [address] | [place], [place] | Dx) | | | | [place] [address] | [address] | | | | | [phone] | | | +--------+---------+ + + + [...] visit was: date of polysomnography: 03/13/2013 at [facility] AHI: 64.2 O2%: n/a Machine type: Respironics BiPAP Auto with ResMed Quattro FX full face mask obtained from: [facility] pressure: 18/14 cm Nights using [...] weeks, sooner prn. Thirty minutes were spent [id number], wit h the majority of time spent [...] | | | | | [facility] | | | | | | [place] [address] | | | | | | [phone] | | | | | | | | +--------+---------+ + + + | 04/30/ | Office | Sleep Medicine | Jacky Calderon PA | | | 2019 | Visit | | [address] | | | | | | [place] | | | | | | [address] | | | | | | | | +--------+---------+ + + + documented as of this encounter Visit Diagnoses + + | Diagnosis | + + | Primary central sleep apnea - Primary | + + documented in this encounter"
--- OUTSIDE RECORDS SUMMARY | ~2020-02-24 | XMS | Encounter Summary ---
Demographics + + + | Address | [address] | | | [place] [address] | + + + | Home Phone [...] | [facility] | | | and [place]am[place] | + + + | Address | Unknown | + + + | Phone | Unavailable | + + + Support + + + + + | Name | Relationship | Address | Phone | + + + + + | Projects [employer] | ECON | [phone] | | | | | Unknown | | + + + + + Care Team Providers + +------+ + | Care Milk Bottler Name | Role | Phone | + [...] 08/27/ | Office | [facility] | [place], | Primary pulmonary | | 2012 | Visit | PULMONARY [address] | Vera Farrar MD | hypertension (HCC) | | | | [place], | | (Primary Dx); COPD | | | | [place] [address] | | (chronic obstructive | | | | [phone] | | pulmonary disease) | | | [...] MD [place] [facility] [address] [place], [address] HPI Margarita Rowley is a 47 y.o. female patient of Gela Trimble [facility] here today for follow up [...] Years of Education: N/A Occupational History Disabled. Currently Social History Main Topics Smoking status: Former Smoker -- 1.0 packs/day for 20 years Types: Cigarettes Quit date: 05/14/2013 Smokeless tobacco: None Alcohol Use: Yes history of abuse Drug Use: Yes Special: Cocaine history of cocaine use Sexually Active: None Other Topics Concern None Social History Narrative Lives at [employer]. Allergies: Allergies Allergen Reactions Erythromycin Metronidazole Penicillins [...] Active Take 2,000 Units by mouth Daily. [place] Starch POWD Active by Does not apply [...] patch onto the skin every 24 hours. [place]-3 Fatty Acids (SEA-OMEGA 30) 1200 MG CAPS [...] made to ensure accuracy; however, inadvertent computerized supervisor phosphorus processing errors may be pre sent. documented in [...] | | | | | [place] [address] | | | | | | [phone] | | | | | | | | +--------+---------+ + + + | 04/30/ | Office | Sleep Medicine | Jacky Calderon PA | | | 2019 | Visit | | [address] | | | | | | [place] | | | | | | [address] | | | | | | | [...] [address] | [place] | [phone] | | [facility] | | [address] | | | - LABORATORY | | | | + + + + + | [address] | [address] | [place] | | | [facility] | | [address] | | | - LABORATORY [...] + | [facility] | [address] | [place], [place] | [phone] | | [facility] | | [address] | | | - LABORATORY | | | | + + + + + | [facility] | [address] | [place], [place] | | | [facility] | | [address] [place] [address] | | | - LABORATORY | | [...]
--- OUTSIDE RECORDS SUMMARY | ~2020-02-24 | XMS | Encounter Summary ---
Demographics + + + | Address | [address] | | | [place] [address] | + + + | Home Phone | | + + + | Preferred Language | Unknown | + + + | Marital Status | Single | + + + | Mormonism Affiliation | NRP | + + + | Race | White | + + + | Ethnic Group | Not or | + + + Author + + + | Author | [facility] | + + + | Organization | [facility] | + + + | Address | Unknown | + + + | Phone | Unavailable | + + + Support + + +---------+ + | Name | Relationship | Address | Phone | + + +---------+ + | Lidia Thibodeaux | ECON | Unknown | | + + +---------+ + Care Team Providers + +------+ + | Care Sr Vice President Name | Role | Phone | + +------+ + | Yuni Shrestha | PCP | | + +------+ + Encounter Details +--------+ + + + + | Date | Type | Department | Care Team | Description | +--------+ + + + + | 05/17/ | Director Business Development | Pulmonary & | Oneal Morejon MD | | | 2012 | | Critical Care | [address] | | | | | Medicine at | [facility], | | | | | [facility] | [place] [address] | | | | | [address] | [phone] | | | | | Loop Physician's | | | | | | [place], 3rd Floor | | | | | | [place], [place] | | | | | | [address] | | | | | | [phone] | | | +--------+ + + + [...]
--- OUTSIDE RECORDS SUMMARY | ~2020-02-24 | XMS | Encounter Summary ---
Demographics + + + | Address | [address] | | | [place] [address] | + + + | Home Phone [...] Organization | [facility] | | | and [place] | + + + | Address | Unknown | + + + | Phone | Unavailable | + + + Support + + + + + | Name | Relationship | Address | Phone | + + + + + | Projects [employer] | ECON | [phone] | | | | | Unknown | | + + + + + Care Team Providers + +------+ + | Care Special Tester Name | Role | Phone | + +------+ + | Gela Trimble NP | PCP | | + +------+ + Encounter Details +--------+ + + + + | Date | Type | Department | Care Team | Description | +--------+ + + + + | 12/17/ | [facility] | [facility] | Fatou, | | | 2013 | Encounter | MED CTR GENERIC OP | Vera Farrar MD | | | | | CONV DEPT [address] | | | | | | [place], | | | | | | [place] [address] | | | | | | [phone] | | | +--------+ + + + [...] + + + +---------+ + + | [place] Starch POWD | by Does not apply [...] + + + +---------+ + + | [place]-3 Fatty | Take by mouth. | [...] | | | | | [place] [address] | | | | | | [phone] | | | | | | | | +--------+---------+ + + + | 04/30/ | Office | Sleep Medicine | Jacky Calderon PA | | | 2020 | Visit | | [address] | | | | | | [place] | | | | | | [address] | | | | | | | | +--------+---------+ + + + documented as of this encounter Visit Diagnoses Not on filedocumented in this encounter"
--- OUTSIDE RECORDS SUMMARY | ~2020-02-24 | XMS | Encounter Summary ---
Demographics + + + | Address | [address] | | | [place] [address] | + + + | Home Phone [...] Organization | [facility] | | | and [place] | + + + | Address | Unknown | + + + | Phone | Unavailable | + + + Support + + + + + | Name | Relationship | Address | Phone | + + + + + | Projects [employer] | ECON | [id number] | | | | | Unknown | | + + + + + Care Team Providers + +------+ + | Care Pickler Helper Name | Role | Phone | [...] | | | | ABDIRASHID BROTHERS | [place], [place] | | | | | [place] | [address] | | | | | [address] | [phone] | | | | | [phone] | | | +--------+ + + + [...] | | | | | [place] [address] | | | | | | [phone] | | | | | | | | +--------+---------+ + + + | 04/30/ | Office | Sleep Medicine | Jacky Calderon PA | | | 2020 | Visit | | [address] | | | | | | [place] | | | | | | [address] | | | | | | | | +--------+---------+ + + + documented as of this encounter Visit Diagnoses Not on filedocumented in this encounter"
--- OUTSIDE RECORDS SUMMARY | ~2020-02-24 | XMS | Encounter Summary ---
Demographics + + + | Address | [address] | | | [place] [address] | + + + | Home Phone [...] Organization | [facility] | | | and [place] | + + + | Address | Unknown | + + + | Phone | Unavailable | + + + Support + + + + + | Name | Relationship | Address | Phone | + + + + + | Projects [employer] | ECON | [id number] | | | | | Unknown | | + + + + + Care Team Providers + +------+ + | Care Electrician Powerhouse Name | Role | Phone | + [...] | | MED CTR LABORATORY | Zari Stave [facility] Hand | use | | | | [address] | | | | | | [place] | | | | | | [address] | | | | | | [phone] | | | +--------+ + + + [...] | | | | | [place] [address] | | | | | | [phone] | | | | | | | | +--------+---------+ + + + | 04/30/ | Office | Sleep Medicine | Jacky Calderon PA | | | 2020 | Visit | | [address] | | | | | | [place] | | | | | | [address] | | | | | | | [...] | mL/min/1.73m2 | [facility] | | | ZAMBIAN | RATE,ESTIMATED | | MEDICAL | | | | mL/min/1.35x0Evjt than | | CENTER - | | [...] | 9.6 | 8.3 - 10.5 | [facility] | | | | | mg/dL | [...] [address] | [place] | [phone] | | [facility] | | [address] | | | - LABORATORY | | [...] | | | | g/dL | [facility] | | | | | | [...] [address] | [place] | [phone] | | [facility] | | [address] | | | - LABORATORY | | | | + + + + + documented in this encounter Visit Diagnoses + + | Diagnosis | + + | High risk medication use Encounter for long-term (current) use of other medications | + + documented in this encounter"
--- OUTSIDE RECORDS SUMMARY | ~2020-02-24 | XMS | Encounter Summary ---
Demographics + + + | Address | [address] | | | [place] [address] | + + + | Home Phone [...] Organization | [facility] | | | and [place] | + + + | Address | Unknown | + + + | Phone | Unavailable | + + + Support + + + + + | Name | Relationship | Address | Phone | + + + + + | [employer] | ECON | [phone] | | | | | Unknown | | + + + + + Care Team Providers + +------+ + | Care Home Mission Worker Name | Role | Phone | + +------+ + | Yuni Sherstha | PCP | | + +------+ + [...] | | | | | pulmonary | SURGICAL TRAINING SPECIALIST [address] | [address] | | | | | hypertension | [address] | [place], [place] | | | | | (HCC) | [place], | [address] | | | | | Procedures | [place] [address] | Phone: | | | | | F/U | Phone: | [phone] | | | | | | [phone] | Fax: | | | | | | Fax: | [phone] | | | | | | [phone] | | +--------+--------+ + + + + Encounter Details +--------+---------+ + + + | Date | Type | Department | Care Team | Description | +--------+---------+ + + + | 02/01/ | Office | [facility] | Jerson Scout Mistry, | Primary pulmonary | | 2017 | Visit | PULMONARY [address] | [address] | hypertension (HCC) | | | | [place], | [place] [address] | (Primary Dx); | | | | [place] [address] | [phone] | Chronic respiratory | | | | [phone] | | failure with hypoxia | | [...] on medication and oxygen and BiPAP at [facility] HPI: I am able to reconstruct this patient's history with the benefit of Dr. Elvi rivera's pulmonary clinic notes from [facility] in [facility] from May 17, 2016. Today, she [...] was apparently diagnosed August 08, 2013 in [place] at [facility] on 2 L with right atrial mean [...] July 2015 chest x-ray. An echocardiogram from [facility] done March 09, 2016, a little b [...] be seeing her pulmonary hypertension specialist in [place] before then. The note from 2016 was very helpful. Over half the session was spent in counseling. [email or web address] was used as a processor helper and I terrance pologized for uncorrected mistakes. [...] | | | | | [place] [address] | | | | | | [phone] | | | | | | | | +--------+---------+ + + + | 04/30/ | Office | Sleep Medicine | Jacky Calderon PA | | 2019 | Visit | | [address] | | | | | | [place] | | | | | | [phone] | | | | | | | [...]
--- OUTSIDE RECORDS SUMMARY | ~2020-02-24 | XMS | Encounter Summary ---
Demographics + + + | Address | [address] | | | [place] [address] | + + + | Home Phone [...] | [facility] | | | and [place]am[place] | + + + | Address | Unknown | + + + | Phone | Unavailable | + + + Support + + + + + | Name | Relationship | Address | Phone | + + + + + | [employer] | ECON | [id number] | | | | | Unknown | | + + + + + Care Team Providers + +------+ + | Care Panama Hat Blocker Name | Role | Phone | + [...] [place] | | | | | | [address] | | | | | | [phone] | | | +--------+ + + + [...] | | | | | [place] [address] | | | | | | [phone] | | | | | | | | +--------+---------+ + + + | 04/30/ | Office | Sleep Medicine | Jacky Calderon PA | | | 2019 | Visit | | [address] | | | | | | [place] | | | | | | [address] | | | | | | | [...] | LV systolic and diastolic functions NML, [facility] visually estimates | | | LVEF 60-65%. [...] | LV systolic and diastolic functions NML, [facility] visually estimates | | | LVEF 60-65%. [...] pressures of | | | 10-15mmHg. MEASUREMENTS Rn Clinical Coordinator: | | | Authenticated by: Avila Haynes DO Report Date/Time: -- | | | [id number] | | + + + + + | Procedure Note | + + | Andrade, Rad Conversion - 06/22/2019 10:54 AM PDT Patient Name: Julia Rowley of | | : 1965 Performing Physician: Avila Haynes | | DO INDICATIONS P | | ulmonary HTN CONCLUSIONS 1. Sinus rhythm. TDS. 2. Cardiac chamber dimensions | | grossly NML. LV systolic and diastolic functions NML, [facility] visually estimates LVEF | | 60-65%. RV [...] venous pressures of 10-15mmHg. | | MEASUREMENTS Rn Clinical Coordinator: Nereydaticated by: Avila Moses | | Date/Time: -- [id number] IMPRESSION: 1. Sinus rhythm. TDS. 2. Cardiac | | chamber dimensions grossly NML. LV systolic and diastolic functions NML, [facility] | | visually estimates LVEF 60-65%. RV [...] | |MEASUREMENTS | | | | | |Rn Clinical Coordinator: RUDI | |Authenticated by: Avila Haynes DO | |Report Date/Time: -- [id number] | | | |IMPRESSION: | |1. Sinus rhythm. TDS. 2. Cardiac chamber dimensions grossly NML. LV systolic and diastoli c functions NML, [facility] visually estimates LVEF 60-65%. RV grossly NML. 3. Valves grossly N ML. No /AI. Mild MR, mild | |TR, trace PI. 4. No Pericardial effusion. | | 5. IVC plethoric, est systolic PAP 36-41mmHg, borderline. | + + documented in this encounter Visit Diagnoses Not on filedocumented in this encounter"
--- OUTSIDE RECORDS SUMMARY | ~2020-02-24 | XMS | Encounter Summary ---
Demographics + + + | Address | [address] | | | [place] [address] | + + + | Home Phone [...] | Organization | [facility] | | | and [place] | + + + | Address | Unknown | + + + | Phone | Unavailable | + + + Support + + + + + | Name | Relationship | Address | Phone | + + + + + | [employer] | ECON | [phone] | | | | | Unknown | | + + + + + Care Team Providers + +------+ + | Care Health Data Analyst Name | Role | Phone | [...] | apnea (adult) | | | | [place], | | (pediatric) (Primary | | | | [place] [address] | | Dx) | | | | [phone] | | | +--------+ + + + [...] | | | | | [place] [address] | | | | | | [phone] | | | | | | | | +--------+---------+ + + + | 04/30/ | Office | Sleep Medicine | Jacky Calderon PA | | | 2020 | Visit | | [address] | | | | | | [place] | | | | | | [address] | | | | | | | | +--------+---------+ + + + documented as of this encounter Visit Diagnoses + + | Diagnosis | + + | Obstructive sleep apnea (adult) (pediatric) - Primary | + + documented in this encounter"
--- OUTSIDE RECORDS SUMMARY | ~2020-02-24 | XMS | Encounter Summary ---
Demographics + + + | Address | [address] | | | [place] [address] | + + + | Home Phone [...] | Organization | [facility] | | | and Abram[place] | + + + | Address | Unknown | + + + | Phone | Unavailable | + + + Support + + + + + | Name | Relationship | Address | Phone | + + + + + | [employer] | ECON | [id number] | | | | | Unknown | | + + + + + Care Team Providers + +------+ + | Care Veneer Grader Name | Role | Phone | + [...] | hypertension (HCC) | | | | [place], | | | | | | [place] [address] | | | | | | [phone] | | | +--------+ + + + [...] | | | | | [place] [address] | | | | | | [phone] | | | | | | | | +--------+---------+ + + + | 04/30/ | Office | Sleep Medicine | Jacky Calderon PA | | | 2019 | Visit | | [address] | | | | | | [place] | | | | | | [address] | | | | | | | | +--------+---------+ + + + documented as of this encounter Visit Diagnoses + + | Diagnosis | + + | Pulmonary hypertension (HCC) Other chronic pulmonary heart diseases | + + documented in this encounter"
--- OUTSIDE RECORDS SUMMARY | ~2020-02-24 | XMS | Encounter Summary ---
Demographics + + + | Address | [address] | | | [place] [address] | + + + | Home Phone [...] | Organization | [facility] | | | and [place]am[place] | + + + | Address | Unknown | + + + | Phone | Unavailable | + + + Support + + + + + | Name | Relationship | Address | Phone | + + + + + | [employer] | ECON | [id number] | | | | | Unknown | | + + + + + Care Team Providers + +------+ + | Care Sales Recruitment Specialist Name | Role | Phone | [...] MD | hypertension | | | | [place], | | (Primary Dx); COPD | | | | [place] [address] | | (chronic obstructive | | | | [phone] | | pulmonary disease); | | | [...] appointment to see cardiology, with records from [place] visit, [facility] I will also get. We will let [...] seeing a neurologist for the tremors in [facility] next week. Her breathing has been doing [...] Years of Education: N/A Occupational History Disabled. [employer] Social History Main Topics Smoking status: Former Smoker -- 1.0 packs/day for 20 years Types: Cigarettes Quit date: 05/14/2013 Smokeless tobacco: None Alcohol Use: Yes Comment: history of abuse Drug Use: Yes Special: Cocaine Comment: history of cocaine use Sexually Active: None Other Topics Concern None Social History Narrative Lives at [employer] [place]. Allergies: Allergies Allergen Reactions Erythromycin Metronidazole Penicillins [...] TABS Take 2,000 Units by mouth Daily. [place] Starch POWD by Does not apply route [...] tablet Take 15 mg by mouth Daily. [place]-3 Fatty Acids (SEA-OMEGA 30) 1200 MG CAPS [...] Letairis. 5. We will get records from [place] ER visit, but I did suggest cardiology [...] made to ensure accuracy; however, inadvertent computerized functional mental disability teacher errors may be pre sent. Electronically signed [...] | | | | | [place] [address] | | | | | | [phone] | | | | | | | | +--------+---------+ + + + | 04/30/ | Office | Sleep Medicine | Jacky Calderon PA | | | 2019 | Visit | | [address] | | | | | | [place] | | | | | | [id number] | | | | | | | [...]
--- OUTSIDE RECORDS SUMMARY | ~2020-02-24 | XMS | Encounter Summary ---
Demographics + + + | Address | [address] | | | [place] [address] | + + + | Home Phone [...] + | Organization | [facility] | | | and [place] | + + + | Address | Unknown | + + + | Phone | Unavailable | + + + Support + + + + + | Name | Relationship | Address | Phone | + + + + + | [employer] | ECON | [id number] | | | | | Unknown | | + + + + + Care Team Providers + +------+ + | Care Sanitation Truck Cleaner Name | Role | Phone | + +------+ + | Yuni Shrestha | PCP | | + +------+ + Encounter Details +--------+ + + + + | Date | Type | Department | Care Team | Description | +--------+ + + + + | 11/07/ | Hospital | [facility] | [place], | Primary pulmonary | | 2016 | Encounter | MED CTR PULMONARY | Vera Farrar MD | hypertension; | | | | FUN[address] | | Hypoxemia | | | | [place], | | | | | | [place] [address] | | | | | | [phone] | | | +--------+ + + + [...] + + + +---------+ + + | [place] Starch POWD | by Does not apply [...] + + + +---------+ + + | Adrian-3 Fatty | Take by mouth. | | [...] | | | | | [place] [address] | | | | | | [phone] | | | | | | | | +--------+---------+ + + + | 04/30/ | Office | Sleep Medicine | Jacky Calderon PA | | | 2019 | Visit | | [address] | | | | | | [place] | | | | | | [address] | | | | | | | [...]
--- OUTSIDE RECORDS SUMMARY | ~2020-02-24 | XMS | Encounter Summary ---
Demographics + + + | Address | [address] | | | [place] [address] | + + + | Home Phone [...] Organization | [facility] | | | and [place] | + + + | Address | Unknown | + + + | Phone | Unavailable | + + + Support + + + + + | Name | Relationship | Address | Phone | + + + + + | [employer] | ECON | [id number] | | | | | Unknown | | + + + + + Care Team Providers + +------+ + | Care Manager Payer Name | Role | Phone | + [...] diseases (HCC) | | | | [place] [address] | | (Primary Dx); | | | | [phone] | | Chronic airway | | | | | | obstruction, not | | | | | | elsewhere classified | | | | | | ([facility]) | +--------+ + + + + Social [...] | | | | | [place] [address] | | | | | | [phone] | | | | | | | | +--------+---------+ + + + | 04/30/ | Office | Sleep Medicine | Jacky Calderon PA | | | 2020 | Visit | | [address] | | | | | | [place] | | | | | | [address] | | | | | | | [...] 06/15/2013 | | | | | diseases ([facility]) | until 06/15/2014 | | | | | Chronic airway | | | | | | obstruction, not | | | | | | elsewhere classified | | | | | | ([facility]) | | + + +--------+ + + documented as of this encounter Visit Diagnoses + + | Diagnosis | + + | Other chronic pulmonary heart diseases - Primary | + + | Chronic airway obstruction, not elsewhere classified | + + documented in this encounter"
--- OUTSIDE RECORDS SUMMARY | ~2020-02-24 | XMS | Encounter Summary ---
Demographics + + + | Address | [address] | | | [place] [address] | + + + | Home Phone [...] Organization | [facility] | | | and [place] | + + + | Address | Unknown | + + + | Phone | Unavailable | + + + Support + + + + + | Name | Relationship | Address | Phone | + + + + + | [employer] | ECON | [id number] | | | | | Unknown | | + + + + + Care Team Providers + +------+ + | Care Manager Application Development Name | Role | Phone | + +------+ + | Yuni Shrestha | PCP | | + +------+ + Encounter Details +--------+ + + + + | Date | Type | Department | Care Team | Description | +--------+ + + + + | 06/12/ | Hospital | [facility] | [place], | Exercise hypoxemia | | 2014 | Encounter | MED CTR PULMONARY | Vera Farrar MD | ([facility]); Primary | | | | [address] | | pulmonary | | | | [place], | | hypertension | | | | [place] [address] | | | | | | [phone] | | | +--------+ + + + [...] + + + +---------+ + + | [place] Starch POWD | by Does not apply [...] + + + +---------+ + + | [place]-3 Fatty | Take by mouth. | | [...] 08/06/20 | | | Therapy Supplies | [facility] office | | | 13 | [...] | | | | | [place] [address] | | | | | | [phone] | | | | | | | | +--------+---------+ + + + | 04/30/ | Office | Sleep Medicine | Jacky Calderon PA | | | 2019 | Visit | | [address] | | | | | | [place] | | | | | | [address] | | | | | | | [...] TESTING | | 9:41 AM | ([facility]) Primary | | | ORDERS | [...]
--- OUTSIDE RECORDS SUMMARY | ~2020-02-24 | XMS | Encounter Summary ---
Demographics + + + | Address | [address] | | | [place] [address] | + + + | Home Phone [...] | Organization | [facility] | | | and [place] | + + + | Address | Unknown | + + + | Phone | Unavailable | + + + Support + + + + + | Name | Relationship | Address | Phone | + + + + + | [employer] | ECON | [id number] | | | | | Unknown | | + + + + + Care Team Providers + +------+ + | Care Cottage Master Name | Role | Phone | + [...] | hypertension (HCC); | | | | [place], | | High risk medication | | | | [place] [address] | | use | | | | [phone] | | | +--------+ + + + [...] | | | | | [place] [address] | | | | | | [phone] | | | | | | | | +--------+---------+ + + + | 04/30/ | Office | Sleep Medicine | Jacky Calderon PA | | | 2019 | Visit | | [address] | | | | | | [place] | | | | | | [address] | | | | | | | [...]
--- OUTSIDE RECORDS SUMMARY | ~2020-02-24 | XMS | Encounter Summary ---
Demographics + + + | Address | [address] | | | [place] [address] | + + + | Home Phone [...] Organization | [facility] | | | and [place]am[place] | + + + | Address | Unknown | + + + | Phone | Unavailable | + + + Support + + + + + | Name | Relationship | Address | Phone | + + + + + | [employer] | ECON | [id number] | | | | | Unknown | | + + + + + Care Team Providers + +------+ + | Care Ship Fitter Name | Role | Phone | [...] | | | [place] | [address] | | | | | [address] | [phone] | | | | | [phone] | | | +--------+ + + + [...] | | | | | [place] [address] | | | | | | [phone] | | | | | | | | +--------+---------+ + + + | 04/30/ | Office | Sleep Medicine | Jacky Calderon PA | | | 2020 | Visit | | [address] | | | | | | [place] | | | | | | [address] | | | | | | | | +--------+---------+ + + + documented as of this encounter Visit Diagnoses Not on filedocumented in this encounter"
--- OUTSIDE RECORDS SUMMARY | ~2020-02-24 | XMS | Encounter Summary ---
Demographics + + + | Address | [address] | | | [place] [address] | + + + | Home Phone [...] + | Organization | [facility] | | | and [place]am[place] | + + + | Address | Unknown | + + + | Phone | Unavailable | + + + Support + + + + + | Name | Relationship | Address | Phone | + + + + + | [employer] | ECON | [id number] | | | | | Unknown | | + + + + + Care Team Providers + +------+ + | Care Photo Equipment Technician Name | Role | Phone | [...] | | | | ABDIRASH[address] BROTHERS | [place], [place] | | | | | [place] | [address] | | | | | [address] | [phone] | | | | | [phone] | | | +--------+ + + + [...] | | | | | [place] [address] | | | | | | [phone] | | | | | | | | +--------+---------+ + + + | 04/30/ | Office | Sleep Medicine | Jacky Calderon PA | | | 2020 | Visit | | [address] | | | | | | [place] | | | | | | [address] | | | | | | | | +--------+---------+ + + + documented as of this encounter Visit Diagnoses Not on filedocumented in this encounter"
--- OUTSIDE RECORDS SUMMARY | ~2020-02-24 | XMS | Encounter Summary ---
Demographics + + + | Address | [address] | | | [place] [address] | + + + | Home Phone [...] Organization | [facility] | | | and [place]am[place] | + + + | Address | Unknown | + + + | Phone | Unavailable | + + + Support + + + + + | Name | Relationship | Address | Phone | + + + + + | [employer] | ECON | [id number] | | | | | Unknown | | + + + + + Care Team Providers + +------+ + | Care Director Of Medical Review Name | Role | Phone | + [...] | | [place], [place] | [place] [address] | | | | | [address] | [phone] | | | | | [phone] | | | +--------+ + + + [...] | | | | | [place] [address] | | | | | | [phone] | | | | | | | | +--------+---------+ + + + | 04/30/ | Office | Sleep Medicine | Jacky Calderon PA | | | 2020 | Visit | | [address] | | | | | | [place] | | | | | | [address] | | | | | | | | +--------+---------+ + + + documented as of this encounter Visit Diagnoses Not on filedocumented in this encounter"
--- OUTSIDE RECORDS SUMMARY | ~2020-02-24 | XMS | Encounter Summary ---
Demographics + + + | Address | [address] | | | [place] [address] | + + + | Home Phone [...] Organization | [facility] | | | and [place]am[place] | + + + | Address | Unknown | + + + | Phone | Unavailable | + + + Support + + + + + | Name | Relationship | Address | Phone | + + + + + | [employer] | ECON | [id number] | | | | | Unknown | | + + + + + Care Team Providers + +------+ + | Care Medical Transcription Editor Name | Role | Phone | [...] | | | | [place], [place] | [place], [place] | | | | | [address] | [address] | | | | | [phone] | [phone] | | | | | | | [...] | | | | | [place] [address] | | | | | | [phone] | | | | | | | [...]
--- OUTSIDE RECORDS SUMMARY | ~2020-02-24 | XMS | Encounter Summary ---
Demographics + + + | Address | [address] | | | [place] [address] | + + + | Home Phone [...] | Organization | [facility] | | | and [place]am[place] | + + + | Address | Unknown | + + + | Phone | Unavailable | + + + Support + + + + + | Name | Relationship | Address | Phone | + + + + + | [employer] | ECON | [id number] | | | | | Unknown | | + + + + + Care Team Providers + +------+ + | Care Forensics Analyst Name | Role | Phone | [...] | | | Pulmonology | airway | [address] | MD | | | | | obstruction, | | | | | | | not | [address] | | | | | | elsewhere | [place], | | | | | | classified | [place] [address] | | | | | | Obstructive | Phone: | | | | | | sleep apnea | [phone] | | | | | | (adult) | Fax: | | | | | | (pediatric) | [phone] | | | | | | Procedures | | | | | | | [place] OFFICE | | | | | | [...] MD | hypertension | | | | [place], | | (Primary Dx); COPD | | | | [place] [address] | | (chronic obstructive | | | | [phone] | | pulmonary disease); | | | [...] Years of Education: N/A Occupational History Disabled. [employer] Social History Main Topics Smoking status: Former Smoker -- 1.0 packs/day for 20 years Types: Cigarettes Quit date: 05/14/2013 Smokeless tobacco: None Alcohol Use: Yes Comment: history of abuse Drug Use: Yes Special: Cocaine Comment: history of cocaine use Sexually Active: None Other Topics Concern None Social History Narrative Lives at [employer]. Allergies: Allergies Allergen Reactions Erythromycin Metronidazole Penicillins [...] TABS Take 2,000 Units by mouth Daily. [place] Starch POWD by Does not apply route [...] tablet Take 15 mg by mouth Daily. [place]-3 Fatty Acids (SEA-OMEGA 30) 1200 MG CAPS [...] 3 months, or sooner with concerns. CC: BIRTTANY Haley, Lashae Rivera MD Portions of this report were transcribed using voice recognition software. Every effort wa s made to ensure accuracy; however, inadvertent computerized stock counter errors may be pre sent. documented in [...] | | | | | [place] [address] | | | | | | [phone] | | | | | | | | +--------+---------+ + + + | 04/30/ | Office | Sleep Medicine | Jacky Calderon PA | | | 2019 | Visit | | [address] | | | | | | [place] | | | | | | [phone] | | | | | | | [...]
--- OUTSIDE RECORDS SUMMARY | ~2020-02-24 | XMS | Encounter Summary ---
Demographics + + + | Address | [address] | | | [place] [address] | + + + | Home Phone | | + + + | Preferred Language | Unknown | + + + | Marital Status | Single | + + + | Synagogue Affiliation | NRP | + + + | Race | White | + + + | Ethnic Group | Not or | + + + Author + + + | Author | [facility] | + + + | Organization | [facility] | + + + | Address | Unknown | + + + | Phone | Unavailable | + + + Support + + +---------+ + | Name | Relationship | Address | Phone | + + +---------+ + | Lidia Thibodeaux | ECON | Unknown | | + + +---------+ + Care Team Providers + +------+ + | Care Pencil Maker Name | Role | Phone | [...] | | | | | | [place] [address] | | | | | | [phone] | | | +--------+ + + + [...]
--- OUTSIDE RECORDS SUMMARY | ~2020-02-24 | XMS | Encounter Summary ---
Demographics + + + | Address | [address] | | | [place] [address] | + + + | Home Phone [...] [facility] | | | and [place]am[place] | + + + | Address | Unknown | + + + | Phone | Unavailable | + + + Support + + + + + | Name | Relationship | Address | Phone | + + + + + | [employer] | ECON | [id number] | | | | | Unknown | | + + + + + Care Team Providers + +------+ + | Care Workers Compensation Legal Secretary Name | Role | Phone | [...] | | | | [place] | [place] [address] | Obstructive sleep | | | | [place] [address] | [phone] | apnea (adult) | | | | [phone] | | (pediatric) | +--------+ + + [...] | | | | | [place] [address] | | | | | | [phone] | | | | | | | | +--------+---------+ + + + | 04/30/ | Office | Sleep Medicine | Jacky Calderon PA | | | 2019 | Visit | | [address] | | | | | | [place] | | | | | | [address] | | | | | | | | +--------+---------+ + + + documented as of this encounter Visit Diagnoses + + | Diagnosis | + + | Obstructive sleep apnea - Primary Obstructive sleep apnea (adult) (pediatric) | + + | Obstructive sleep apnea (adult) (pediatric) | + + documented in this encounter"
--- OUTSIDE RECORDS SUMMARY | ~2020-02-24 | XMS | Encounter Summary ---
Demographics + + + | Address | [address] | | | [place] [address] | + + + | Home Phone [...] | Organization | [facility] | | | and [place]am[place] | + + + | Address | Unknown | + + + | Phone | Unavailable | + + + Support + + + + + | Name | Relationship | Address | Phone | + + + + + | [employer] | ECON | [id number] | | | | | Unknown | | + + + + + Care Team Providers + +------+ + | Care Doper Name | Role | Phone | + [...] Farrar MD | | | | | [place], | | | | | | [place] [address] | | | | | | [phone] | | | +--------+ + + + [...] | | | | | [place] [address] | | | | | | [phone] | | | | | | | | +--------+---------+ + + + | 04/30/ | Office | Sleep Medicine | Jacky Calderon PA | | | 2020 | Visit | | [address] | | | | | | [place] | | | | | | [address] | | | | | | | | +--------+---------+ + + + documented as of this encounter Visit Diagnoses Not on filedocumented in this encounter"
--- OUTSIDE RECORDS SUMMARY | ~2020-02-24 | XMS | Encounter Summary ---
Demographics + + + | Address | [address] | | | [place] [address] | + + + | Home Phone [...] Organization | [facility] | | | and [place]am[place] | + + + | Address | Unknown | + + + | Phone | Unavailable | + + + Support + + + + + | Name | Relationship | Address | Phone | + + + + + | [employer] | ECON | [id number] | | | | | Unknown | | + + + + + Care Team Providers + +------+ + | Care Construction Contractor Name | Role | Phone | [...] | oximetry order) | | | | [place], | | | | | | [place] [address] | | | | | | [phone] | | | +--------+ + + + [...] | | | | | [place] [address] | | | | | | [phone] | | | | | | | | +--------+---------+ + + + | 04/30/ | Office | Sleep Medicine | Jacky Calderon PA | | | 2019 | Visit | | [address] | | | | | | [place] | | | | | | [address] | | | | | | | [...]
--- OUTSIDE RECORDS SUMMARY | ~2020-02-24 | XMS | Encounter Summary ---
Demographics + + + | Address | [address] | | | [place] [address] | + + + | Home Phone [...] | Organization | [facility] | | | and [place]am[place] | + + + | Address | Unknown | + + + | Phone | Unavailable | + + + Support + + + + + | Name | Relationship | Address | Phone | + + + + + | [employer] | ECON | [id number] | | | | | Unknown | | + + + + + Care Team Providers + +------+ + | Care Production Grader Name | Role | Phone | [...] | [address] [place] | [place] [place] [address] | | | | | [address] [place], [place] | [place], [place] | | | | | [address] | [address] | | | | | [phone] | | | +--------+--------+ + + + [...] | | | | | [place] [address] | | | | | | [phone] | | | | | | | | +--------+---------+ + + + | 04/30/ | Office | Sleep Medicine | Jacky Calderon PA | | | 2020 | Visit | | [address] | | | | | | [place] | | | | | | [address] | | | | | | | | +--------+---------+ + + + documented as of this encounter Visit Diagnoses Not on filedocumented in this encounter"
--- OUTSIDE RECORDS SUMMARY | ~2020-02-24 | XMS | Encounter Summary ---
Demographics + + + | Address | [address] | | | [place] [address] | + + + | Home Phone [...] [facility] | | | and [place] | + + + | Address | Unknown | + + + | Phone | Unavailable | + + + Support + + + + + | Name | Relationship | Address | Phone | + + + + + | Projects Horizon | ECON | [id number] | | | | | Unknown | | + + + + + Care Team Providers + +------+ + | Care Immigration Paralegal Name | Role | Phone | + [...] | Primary | [place], | [address] | | | | | pulmonary | Vera B, | [place], | | | | | hypertension | MD [address] | [place] | | | | | ([facility]) | [address] | [address] | | | | | Procedures | [place], | Phone: | | | | | ECHO | [place] [address] | [phone] | | | | | Complete [place] | | Fax: | | | | | ECHO HEART | | [phone] | | | | | XTHORACIC,[place] | [...] | | | Pulmonology | airway | ASSIGNMENT DESK ASSISTANT [address] | MD | | | | | obstruction, | IRMA | | | | | | not | [address] | | | | | | elsewhere | [place], | | | | | | classified | [place] [address] | | | | | | Procedures | Phone: | | | | | | F/U | [phone] | | | | | | | Fax: | | | | | | | [phone] | | +--------+--------+ + + + + Encounter Details +--------+---------+ + + + | Date | Type | Department | Care Team | Description | +--------+---------+ + + + | 03/12/ | Office | [facility] [place] | Fatou, | Primary pulmonary | | 2014 | Visit | PULMONARY [address] | Vera Farrar MD | hypertension; | | | | [place], | | Exercise hypoxemia | | | | [place] [address] | | (HCC); Sleep related | | | | [phone] | | hypoxemia; COPD | | | [...] [facility] She is also on her BiPAP [...] [place]) moderate, FEV1 1.40 (59%) Pulmonary hypertension ([facility]) severe, class 1, class 2, class 3 Bipolar disorder ([facility]) PTSD (post-traumatic stress disorder) Osteoarthritis Obstructive sleep [...] Years of Education: N/A Occupational History Disabled. [employer] Social History Main Topics Smoking status: Former Smoker -- 1.00 packs/day for 20 years Types: Cigarettes Quit date: 12/10/2014 Smokeless tobacco: None Comment: restarted in August 2014, quit again 12/10/14 Alcohol Use: Yes Comment: history of abuse Drug Use: Yes Special: Cocaine Comment: history of cocaine use Sexual Activity: None Other Topics Concern None Social History Narrative Lives at [facility]. Allergies: Allergies Allergen Reactions Erythromycin Metronidazole Penicillins [...] TABS Take 2,000 Units by mouth Daily. [place] Starch POWD by Does not apply route [...] mg onto the skin every 24 hours. [place]-3 Fatty Acids (SEA-OMEGA 30) 1200 MG CAPS [...] 1 each 0 Respiratory Therapy Supplies [facility] Please contact Dr. [...] kg (205 lb 11.2 oz) | [place] 41.52 kg/m2 | SpO2 90% RA General [...] sounds are diminished bilaterally, no wheezes, aircraft loadmaster superintendent ckles or rhonchi Chest Wall: No deformity [...] Range: 0-100 6 eGFR, External Latest Range: [id number] 58 (A) Immunization History Administered Date(s) Administered [...] made to ensure accuracy; however, inadvertent computerized circulation man errors may be pre sent. documented in [...] | | | | | [place] [address] | | | | | | [phone] | | | | | | | | +--------+---------+ + + + | 04/30/ | Office | Sleep Medicine | Jacky Calderon PA | | 2019 | Visit | | [address] | | | | | | [place] | | | | | | [address] | | | | | | | [...] Performed At | + + + | [facility] ECHOCARDIOGRAM REPORT | [place] | | STUDY DATE: 03/26/2015 PATIENT NAME: Margarita Rowley : | [facility] | | 1965 PCP: Physician No [facility] | | HISTORY/DIAGNOSIS: Pulmonary HTN A transthoracic [...] Signed by: Derick Strong, | | | [facility] 03/26/2015 13:52 Nailer Machine: Maciel Silva, | | | RDCS, RDMS, RVT | | + + + + + + + + | Performing | Address | City/State/Zipcode | Phone Number | | Organization | | | | + + + + + | [facility] | [address] | [place], [place] | [phone] | | [facility] | | [address] | | | - IMAGING | | [...]
--- OUTSIDE RECORDS SUMMARY | ~2020-02-24 | XMS | Encounter Summary ---
Demographics + + + | Address | [address] | | | [place] [address] | + + + | Home Phone [...] | Organization | [facility] | | | and [place] | + + + | Address | Unknown | + + + | Phone | Unavailable | + + + Support + + + + + | Name | Relationship | Address | Phone | + + + + + | Projects Horizon | ECON | [id number] | | | | | Unknown | | + + + + + Care Team Providers + +------+ + | Care Curer Foam Rubber Name | Role | Phone | + [...] | | | | | | [place] [address] | | | | | | [phone] | | | +--------+ + + + [...] | | | | | [place] [address] | | | | | | [phone] | | | | | | | | +--------+---------+ + + + | 04/30/ | Office | Sleep Medicine | Jacky Calderon PA | | | 2019 | Visit | | [address] | | | | | | [place] | | | | | | [address] | | | | | | | | +--------+---------+ + + + documented as of this encounter Visit Diagnoses Not on filedocumented in this encounter"
--- OUTSIDE RECORDS SUMMARY | ~2020-02-24 | XMS | Encounter Summary ---
Demographics + + + | Address | [address] | | | [place] [address] | + + + | Home Phone [...] | Organization | [facility] | | | and [place] | + + + | Address | Unknown | + + + | Phone | Unavailable | + + + Support + + + + + | Name | Relationship | Address | Phone | + + + + + | Projects [employer] | ECON | [id number] | | | | | Unknown | | + + + + + Care Team Providers + +------+ + | Care Healthcare Specialist Name | Role | Phone | [...] MD | oximetry) | | | | [place], | | | | | | [place] [address] | | | | | | [phone] | | | +--------+ + + + [...] | | | | | [place] [address] | | | | | | [phone] | | | | | | | | +--------+---------+ + + + | 04/30/ | Office | Sleep Medicine | Jacky Calderon PA | | | 2019 | Visit | | [address] | | | | | | [place] | | | | | | [address] | | | | | | | [...]
--- OUTSIDE RECORDS SUMMARY | ~2020-02-24 | XMS | Encounter Summary ---
Demographics + + + | Address | [address] | | | [place] [address] | + + + | Home Phone [...] | Organization | [facility] | | | and [place]am[place] | + + + | Address | Unknown | + + + | Phone | Unavailable | + + + Support + + + + + | Name | Relationship | Address | Phone | + + + + + | Projects [employer] | ECON | [id number] | | | | | Unknown | | + + + + + Care Team Providers + +------+ + | Care Yarn Weigher Name | Role | Phone | + [...] MD | obstructive | | | | [place], | | pulmonary disease) | | | | [place] [address] | | (HCC) (Primary Dx); | | | | [phone] | | Pulmonary | | | | [...] [address] | | | | | | [phone] | | | | | | | | +--------+---------+ + + + | 04/30/ | Office | Sleep Medicine | Jacky Calderon PA | | | 2019 | Visit | | [address] | | | | | | [place] | | | | | | [address] | | | | | | | [...]
--- OUTSIDE RECORDS SUMMARY | ~2020-02-24 | XMS | Encounter Summary ---
Demographics + + + | Address | [address] | | | [place] [address] | + + + | Home Phone [...] | Organization | [facility] | | | and [place] | + + + | Address | Unknown | + + + | Phone | Unavailable | + + + Support + + + + + | Name | Relationship | Address | Phone | + + + + + | Projects [employer] | ECON | [id number] | | | | | Unknown | | + + + + + Care Team Providers + +------+ + | Care Senior Radiation Protection Technician Name | Role | Phone | + +------+ + | Gela Trimble NP | PCP | | + +------+ + Encounter Details +--------+ + + + + | Date | Type | Department | Care Team | Description | +--------+ + + + + | 07/04/ | Hospital | [facility] | [place]enstein, | Pulmonary | | 2012 | Encounter | MED CTR GENERIC OP | Vera Farrar MD | hypertension (HCC) | | | | CONV DEPT [address] | | | | | | [place], | | | | | | [place] [address] | | | | | | [phone] | | | +--------+ + + + [...] | + + + +---------+--------+ + | [place]-3 Fatty | Take by mouth. | | [...] | | | | | [place] [address] | | | | | | [phone] | | | | | | | | +--------+---------+ + + + | 04/30/ | Office | Sleep Medicine | Jacky Calderon PA | | | 2020 | Visit | | [address] | | | | | | [place] | | | | | | [address] | | | | | | | [...] 07/04/2013 | + +------+--------+ + + | PLANT CONTROLLER Ab, IgG | Lab | Routin | [...] | | | | [address] [place] | | | | | | [address] [place]: | | | | | | [id number] | | | | + + + + + + + + | Specimen | + + | | + + + + + + + | Performing | Address | City/[facility] | Phone Number | | Organization | | | | + + + + + | [facility] | [address] | [place] | [phone] | | [facility] | | [address] | | | - LABORATORY | | | | + + + + + | [facility] | [address] | [place] | | | [facility] | | [address], [facility] | | | - LABORATORY | [...] | autoantibod | Testing Performed: | | [facility] | | | y IgG | [facility], [address], | | MEDICAL | | | | [place] [address] | | CENTER - | | | | CLIA: [id number] | | LABORATORY | | + + + + + + + + | Specimen | + + | | + + + + + + + | Performing | Address | City/State/Zipcode | Phone Number | | Organization | | | | + + + + + | [facility] | [address] | [place] | [phone] | | [facility] | | [address] | | | - LABORATORY | | | | + + + + + | [facility] | [address] | [place] | | | [facility] | | [address] [place] [address] | | | - LABORATORY | | [...] | | MEDICAL | | | | [place] [address] | | CENTER - | | | | CLIA: [id number] | | LABORATORY | | + + + + + + + + | Specimen | + + | | + + + + + + + | Performing | Address | City/State/Zipcode | Phone Number | | Organization | | | | + + + + + | [facility] | [address] | [place] | [phone] | | [facility] | | [address] | | | - LABORATORY | | | | + + + + + | [facility] | [address] | [place], [place] | | | [facility] | | [address] | | | - LABORATORY | [...] | | MEDICAL | | | | [place] [address] | | CENTER - | | | | [place]: [id number] | | LABORATORY | | + + + + + + + + | Specimen | + + | | + + + + + + + | Performing | Address | City/State/Zipcode | Phone Number | | Organization | | | | + + + + + | [facility] | [address] | [place], [place] | [phone] | | [facility] | | [address] | | | - LABORATORY | | | | + + + + + | [facility] | [address] | [place] | | | [facility] | | [address] | | | - LABORATORY | [...] - | | | | [place] [address] | | LABORATORY | | | | CLIA: [id number] | | | | + + + + + + + + | Specimen | + + | | + + + + + + + | Performing | Address | City/State/Zipcode | Phone Number | | Organization | | | | + + + + + | [facility] | [address] | [place], [place] | [phone] | | [facility] | | [address] | | | - LABORATORY | | | | + + + + + | [facility] | [address] | [place] | | | [facility] | | [address] [place] [address] | | | - LABORATORY | | [...] | MEDICAL | | | | [place] [address] | | CENTER - | | | | CLIA: [id number] | | LABORATORY | | + + + + + + | PLANT CONTROLLER | 0.4Comment: Negative | <1.0 AI | [facility] | | | Autoantibod | Testing Performed: | | [facility] | | | y | [place], [address], | | MEDICAL | | | | [place] [address] | | CENTER - | | | | CLIA: [id number] | | LABORATORY | | + + + + + + | SMRNP | <0.2Comment: Negative | <1.0 AI | [facility] | | | Autoantibod | Testing Performed: | | [facility] | | | y | [place], [address], | | MEDICAL | | | | [place] [address] | | CENTER - | | | | CLIA: [id number] | | LABORATORY | | + + + + + + + + | Specimen | + + | | + + + + + + + | Performing | Address | City/State/Zipcode | Phone Number | | Organization | | | | + + + + + | [facility] | [address] | [place] | [phone] | | [facility] | | [address] | | | - LABORATORY | | | | + + + + + | [facility] | [address] | [place] | | | [facility] | | [address], [facility] | | | - LABORATORY | [...] | | | INTERVAL: Aldolase | | [facility] | | | | Access complete set of | | MEDICAL | | | | age- and/or | | CENTER - | | | | gender-specific | | LABORATORY | | | | reference intervals | | | | | | for this test in the | | | | | | [facility] | | | | | | Directory (Douguo). | | | | | | Testing Performed: | | | | | | [facility]ONI, [address], | | | | | | [place], [place] | | | | | | [address] CLIA: | | | | | | [id number] | | | | + + + + + + + + | Specimen | + + | | + + + + + + + | Performing | Address | City/State/[facility] | Phone Number | | Organization | | | | + + + + + | [facility] | [address] | [place] | [phone] | | [facility] | | [address] | | | - LABORATORY | | | | + + + + + | [facility] | [address] | [place] | | | [facility] | | [address], [facility] | | | - LABORATORY | [...] | | MEDICAL | | | | [address] CLIA: [id number] | | CENTER - | | | | | | LABORATORY | | + + + + + + + + | Specimen | + + | | + + + + + + + | Performing | Address | City/State/Zipcode | Phone Number | | Organization | | | | + + + + + | [facility] | [address] | [place], [place] | [phone] | | [facility] | | [address] | | | - LABORATORY | | | | + + + + + | [facility] | [address] | [place], [place] | | | [facility] | | [address], [facility] | | | - LABORATORY | [...] + | [facility] | [address] | [place] | [phone] | | [facility] | | [address] | | | - LABORATORY | | | | + + + + + | [facility] | [address] | [place], [place] | | | [facility] | | [address], [facility] | | | - LABORATORY | [...] | | MEDICAL | | | | [id number]: [id number] | | CENTER - | | | [address] | [place] | [phone] | | [facility] | | [address] | | | - LABORATORY | | | | + + + + + | [facility] | [address] | [place], [place] | | | [facility] | | [address] | | | - LABORATORY | [...] + | [facility] | [address] | [place], [place] | [phone] | | [facility] | | [address] | | | - LABORATORY | | | | + + + + + | [facility] | [address] | [place], [place] | | | [facility] | | [address] [place] [address] | | | - LABORATORY | | | | + + + + + documented in this encounter Visit Diagnoses + + | Diagnosis | + + | Pulmonary hypertension (HCC) Other chronic pulmonary heart diseases | + + documented in this encounter"
--- OUTSIDE RECORDS SUMMARY | ~2020-02-24 | XMS | Encounter Summary ---
Demographics + + + | Address | [address] | | | [place] [address] | + + + | Home Phone [...] Organization | [facility] | | | and [place]am[place] | + + + | Address | Unknown | + + + | Phone | Unavailable | + + + Support + + + + + | Name | Relationship | Address | Phone | + + + + + | Projects [employer] | ECON | [id number] | | | | | Unknown | | + + + + + Care Team Providers + +------+ + | Care Chief Growth Officer Name | Role | Phone | [...] | | | | | | [place] [address] | | | | | | [phone] | | | +--------+ + + + [...] | | | | | [place] [address] | | | | | | [phone] | | | | | | | | +--------+---------+ + + + | 04/30/ | Office | Sleep Medicine | Jacky Calderon PA | | | 2020 | Visit | | [address] | | | | | | [place] | | | | | | [address] | | | | | | | [...] [address] | [place] | [phone] | | [facility] | | [address] | | | - LABORATORY | | | | + + + + + documented in this encounter Visit Diagnoses Not on filedocumented in this encounter"
--- OUTSIDE RECORDS SUMMARY | ~2020-02-24 | XMS | Encounter Summary ---
Demographics + + + | Address | [address] | | | [place] [address] | + + + | Home Phone [...] + | Organization | [facility] | | | and [place] | + + + | Address | Unknown | + + + | Phone | Unavailable | + + + Support + + + + + | Name | Relationship | Address | Phone | + + + + + | Projects Horizon | ECON | [id number] | | | | | Unknown | | + + + + + Care Team Providers + +------+ + | Care Cascara Bark Cutter Name | Role | Phone | [...] | [address] [place] | [place], [place] [address] | | | | | [address] [place], [place] | [place], [place] | | | | | [address] | [address] | | | | | [phone] | | | +--------+ + + + [...] | | | | | [place] [address] | | | | | | [phone] | | | | | | | [...]
--- OUTSIDE RECORDS SUMMARY | ~2020-02-24 | XMS | Encounter Summary ---
Demographics + + + | Address | [address] | | | [place] [address] | + + + | Home Phone [...] + | Organization | [facility] | | | and [place] | + + + | Address | Unknown | + + + | Phone | Unavailable | + + + Support + + + + + | Name | Relationship | Address | Phone | + + + + + | Projects Horizon | ECON | [id number] | | | | | Unknown | | + + + + + Care Team Providers + +------+ + | Care Medical Record Administrator Name | Role | Phone | [...] | [address] [place], [place] | [place] [address] | | | | | [address] | [phone] | | | | | [phone] | | | +--------+ + + + [...] | | | | | [place] [address] | | | | | | [phone] | | | | | | | | +--------+---------+ + + + | 04/30/ | Office | Sleep Medicine | Jacky Calderon PA | | | 2020 | Visit | | [address] | | | | | | [place] | | | | | | [phone] | | | | | | | | +--------+---------+ + + + documented as of this encounter Visit Diagnoses Not on filedocumented in this encounter"
--- OUTSIDE RECORDS SUMMARY | ~2020-02-24 | XMS | Encounter Summary ---
Demographics + + + | Address | [address] | | | [place] [address] | + + + | Home Phone [...] | Organization | [facility] | | | and [place]am[place] | + + + | Address | Unknown | + + + | Phone | Unavailable | + + + Support + + + + + | Name | Relationship | Address | Phone | + + + + + | Projects Horizon | ECON | [id number] | | | | | Unknown | | + + + + + Care Team Providers + +------+ + | Care Placement Secretary Name | Role | Phone | [...] | RN | | | | | [place], | | | | | | [place] [address] | | | | | | [phone] | | | +--------+ + + + [...] | | | | | [place] [address] | | | | | | [phone] | | | | | | | | +--------+---------+ + + + | 04/30/ | Office | Sleep Medicine | Jacky Calderon PA | | | 2019 | Visit | | [address] | | | | | | [place] | | | | | | [address] | | | | | | | | +--------+---------+ + + + documented as of this encounter Visit Diagnoses + + | Diagnosis | + + | Obstructive sleep apnea (adult) (pediatric) - Primary | + + documented in this encounter"
--- OUTSIDE RECORDS SUMMARY | ~2020-02-24 | XMS | Encounter Summary ---
Demographics + + + | Address | [address] | | | [place] [address] | + + + | Home Phone [...] | Organization | [facility] | | | and [place]am[place] | + + + | Address | Unknown | + + + | Phone | Unavailable | + + + Support + + + + + | Name | Relationship | Address | Phone | + + + + + | Projects Horizon | ECON | [id number] | | | | | Unknown | | + + + + + Care Team Providers + +------+ + | Care Contract Coordinator Name | Role | Phone | [...] [place], [place] | | | | | [address] | [address] | | | | | [phone] | [phone] | | | | | | | [...] | | | | | [place] [address] | | | | | | [phone] | | | | | | | | +--------+---------+ + + + | 04/30/ | Office | Sleep Medicine | Jacky Calderon PA | | | 2020 | Visit | | [address] | | | | | | [place] | | | | | | [address] | | | | | | | | +--------+---------+ + + + documented as of this encounter Visit Diagnoses Not on filedocumented in this encounter"
--- OUTSIDE RECORDS SUMMARY | ~2020-02-24 | XMS | Clinical Summary ---
Demographics + + + | Address | [address] | | | [place] [address] | + + + | Home Phone [...] Team Providers + +------+ + | Care Radiology Interventional Physician Name | Role | Phone | + +------+ + | Yuni Shrestha | PCP | | + +------+ + Source Comments SARAH is fully live on both EpicCare Ambulatory and EpicCare InPatient.[facility] Allergies + + + + [...] e | + + + +---------+------+------+-------+ | [place]-3 Fatty | Take 1 Cap by mouth [...] | + +--------+ +--------+ + +--------+ | INTAKE ASSESSOR MEDICAID | INTAKE ASSESSOR | xxxxxxxx | Effect | | | [...] PLUS | | 12-Pre | 6 | [address] | id | | | OPEN | | sent | | [place] | | | | CARD | | | | [id number] | | + +--------+ +--------+ + +--------+ [...] | 1965 | [phone] | [place] [address] | | | jammie | | | 0 (Home) | | + +--------+ +--------+ + + | Margarita Rowley May | Person | Self | [birth year] | [address] | | | al/Fam | | 1965 | [phone] | [place] [address] | | | jammie | | | [...]
--- OUTSIDE RECORDS SUMMARY | ~2020-02-24 | XMS | Encounter Summary ---
Demographics + + + | Address | [address] | | | [place] [address] | + + + | Home Phone [...] Organization | [facility] | | | and [place]am[place] | + + + | Address | Unknown | + + + | Phone | Unavailable | + + + Support + + + + + | Name | Relationship | Address | Phone | + + + + + | Projects [employer] | ECON | [id number] | | | | | Unknown | | + + + + + Care Team Providers + +------+ + | Care Investor Relations Coordinator Name | Role | Phone | + +------+ + | Yuni Shrestha | PCP | | + +------+ + Encounter Details +--------+ + + + + | Date | Type | Department | Care Team | Description | +--------+ + + + + | 03/20/ | Hospital | [facility] | Conversion | Diagnosis unknown | | 2016 | Encounter | CONVERSION DEP 888 | Transaction, | | | | | [address] | Provider Unknown | | | | | [place] | [phone] | | | | | [address] | | | | | | [phone] | | | +--------+ + + + [...] + + + +---------+ + + | [address] | by Does not apply [...] | | | | | [place] [address] | | | | | | [phone] | | | | | | | | +--------+---------+ + + + | 04/30/ | Office | Sleep Medicine | Jacky Calderon PA | | | 2019 | Visit | | [address] | | | | | | [place] | | | | | | [address] | | | | | | | | +--------+---------+ + + + documented as of this encounter Visit Diagnoses + + | Diagnosis | + + | Diagnosis unknown Other unknown and unspecified cause of morbidity or mortality | + + documented in this encounter"
--- OUTSIDE RECORDS SUMMARY | ~2020-02-24 | XMS | Encounter Summary ---
Demographics + + + | Address | [address] | | | [place] [address] | + + + | Home Phone [...] + | Organization | [facility] | | | and [place]am[place] | + + + | Address | Unknown | + + + | Phone | Unavailable | + + + Support + + + + + | Name | Relationship | Address | Phone | + + + + + | Projects [employer] | ECON | [id number] | | | | | Unknown | | + + + + + Care Team Providers + +------+ + | Care Veneer Redrier Name | Role | Phone | + [...] in to BIPAP) | | | | [place], | | | | | | [place] [address] | | | | | | [phone] | | | +--------+ + + + [...] | | | | | [place] [address] | | | | | | [phone] | | | | | | | | +--------+---------+ + + + | 04/30/ | Office | Sleep Medicine | Jacky Calderon PA | | | 2019 | Visit | | [address] | | | | | | [place] | | | | | | [address] | | | | | | | | +--------+---------+ + + + documented as of this encounter Visit Diagnoses Not on filedocumented in this encounter"
--- OUTSIDE RECORDS SUMMARY | ~2020-02-24 | XMS | Encounter Summary ---
Demographics + + + | Address | [address] | | | [place] [address] | + + + | Home Phone [...] Organization | [facility] | | | and [place]am[place] | + + + | Address | Unknown | + + + | Phone | Unavailable | + + + Support + + + + + | Name | Relationship | Address | Phone | + + + + + | [employer] | ECON | [id number] | | | | | Unknown | | + + + + + Care Team Providers + +------+ + | Care Blacksmith Helper Name | Role | Phone | [...] | hypertension (HCC); | | | | [place], | | High risk medication | | | | [place] [address] | | use | | | | [phone] | | | +--------+ + + + [...] | | | | | [place] [address] | | | | | | [phone] | | | | | | | | +--------+---------+ + + + | 04/30/ | Office | Sleep Medicine | Jacky Calderon PA | | | 2019 | Visit | | [address] | | | | | | [place] | | | | | | [address] | | | | | | | [...]
--- OUTSIDE RECORDS SUMMARY | ~2020-02-24 | XMS | Encounter Summary ---
Demographics + + + | Address | [address] | | | [place] [address] | + + + | Home Phone [...] + | Organization | [facility] | | | and [place]am[place] | + + + | Address | Unknown | + + + | Phone | Unavailable | + + + Support + + + + + | Name | Relationship | Address | Phone | + + + + + | [employer] | ECON | [id number] | | | | | Unknown | | + + + + + Care Team Providers + +------+ + | Care Hospice Care Transitions Coordinator Name | Role | Phone | [...] | | | Pulmonology | obstructive | WARE CLEANER [address] | MD | | | | | pulmonary | [address] | | | | | | disease, | [place], | | | | | | unspecified | [place] [address] | | | | | | ([facility]) | Phone: | | | | | | Procedures | [phone] | | | | | | F/U | Fax: | | | | | | | [phone] | | +--------+--------+ + + + + Encounter Details +--------+---------+ + + + | Date | Type | Department | Care Team | Description | +--------+---------+ + + + | 11/07/ | Office | [facility] | [place], | Primary pulmonary | | 2016 | Visit | PULMONARY [address] | Vera Farrar MD | hypertension | | | | [place], | | (Primary Dx); [place] | | | | [place] [address] | | (obstructive sleep | | | | [phone] | | apnea); Hypoxemia; | | | [...] Years of Education: N/A Occupational History Disabled. [employer] Social History Main Topics Smoking status: Current Every Day Smoker -- 1.00 packs/day for 20 years Types: Cigarettes Smokeless tobacco: Never Used Alcohol Use: No Drug Use: No Sexual Activity: None Other Topics Concern None Social History Narrative Lives at [employer]. Allergies: Allergies Allergen Reactions Erythromycin Metronidazole Penicillins [...] TABS Take 2,000 Units by mouth Daily. [place] Starch POWD by Does not apply route [...] mg onto the skin every 24 hours. [place]-3 Fatty Acids (SEA-OMEGA 30) 1200 MG CAPS [...] breath sounds are diminished bilaterally, no wheezes, carpenter cradle and dolly ckles or rhonchi Chest Wall: No deformity [...] compliance, not using her oxygen appropriately. * [facility] ([facility]) Pulmonary Function Testing - AMB [...] to ensure accuracy; however, inadvertent computerized drafter apprentice errors may be pre sent. documented [...] | | | | | [place] [address] | | | | | | [phone] | | | | | | | | +--------+---------+ + + + | 04/30/ | Office | Sleep Medicine | Jacky Calderon PA | | | 2019 | Visit | | [address] | | | | | | [place] | | | | | | 8[address] | | | | | | | [...] not | 57 (L)Comment: | >=60 | [facility] | | | | GLOMERULAR FILTRATION | mL/min/1.73m2 | [facility] | | | SERBIAN | RATE,ESTIMATED | | MEDICAL | | | | mL/min/1.78l4Vjki than | | CENTER - | | [...] + | [facility] | [address] | [place] | [phone] | | [facility] | | [address] | | | - LABORATORY | | [...] [address] | [place] | [phone] | | [facility] | | [address] | | | - LABORATORY | | [...]
--- OUTSIDE RECORDS SUMMARY | ~2020-02-24 | XMS | Encounter Summary ---
Demographics + + + | Address | [address] | | | [place] [address] | + + + | Home Phone [...] | Organization | [facility] | | | and [place]am[place] | + + + | Address | Unknown | + + + | Phone | Unavailable | + + + Support + + + + + | Name | Relationship | Address | Phone | + + + + + | [employer] | ECON | [id number] | | | | | Unknown | | + + + + + Care Team Providers + +------+ + | Care Family Therapist Name | Role | Phone | [...] + + | 12/26/ | Office | [facility] | Jacky Calderon PA | Primary central | | 2013 | Visit | SLEEP DISORDER [address] | [address] | sleep apnea (Primary | | | | [address] [place] | [place], [place] | Dx) | | | | [place] [address] | [address] | | | | | [phone] | | | +--------+---------+ + + + [...] was: 11/20/2013 date of polysomnography: 03/13/2013 at [facility] AHI: 64.2 O2%: n/a Machine type: Respironics BiPAP Auto with ResMed Quattro FX full face mask obtained from: [facility] pressure: 19/5 cm Nights using BiPAP: [...] a prescription to [facility] [place] for a change in her pressure s etting to 16/5 cm with backup rate of 8 and 5 L/min oxygen bled into the circuitry. She is to continue with BiPAP at these settings. I will follow up with her in 1 month, sooner prn. Thirty minutes were spent [id number], with the majority of time spent in [...] | | | | | [place] [address] | | | | | | [phone] | | | | | | | | +--------+---------+ + + + | 04/30/ | Office | Sleep Medicine | Jacky Calderon PA | | | 2019 | Visit | | [address] | | | | | | [place] | | | | | | [address] | | | | | | | | +--------+---------+ + + + documented as of this encounter Visit Diagnoses + + | Diagnosis | + + | Primary central sleep apnea - Primary | + + documented in this encounter"
--- OUTSIDE RECORDS SUMMARY | ~2020-02-24 | XMS | Encounter Summary ---
Demographics + + + | Address | [address] | | | [place] [address] | + + + | Home Phone [...] | Organization | [facility] | | | and [place]am[place] | + + + | Address | Unknown | + + + | Phone | Unavailable | + + + Support + + + + + | Name | Relationship | Address | Phone | + + + + + | [employer] | ECON | [phone] | | | | | Unknown | | + + + + + Care Team Providers + +------+ + | Care Squilgeer Name | Role | Phone | + [...] | Jacky Calderon | | | | Senior Industrial Engineer / | Obstructive | Shanice Paez, | D, PA [address] | | | | Sleep | sleep apnea | [address] | | | | Medicine | (adult) | [place] | [place], | | | | | (pediatric) | [place], | [place] [address] | | | | | 2 mo cpap | [place] | Phone: | | | | | follow up, | [address] | [phone] | | | | | bring | Phone: | Fax: | | | | | equip/AO- | [phone] | [phone] | | | | | new machine | Fax: | | | | | | Procedures | [phone] | | | | | | 05/30 [...] + + | 04/16/ | Office | [facility] | Jacky Calderon PA | Primary central | | 2019 | Visit | SLEEP DISORDER [address] | [address] | sleep apnea (Primary | | | | [address] [place] | [place], [place] | Dx) | | | | [place] [address] | [address] | | | | | [phone] | | | +--------+---------+ + + + [...] visit: 06/14/2018 date of polysomnography: 03/13/2013 at [facility] AHI: 64.2 O2%: n/a Machine type: Respironics DreamStation Auto BiPAP Mask type: ResMed Quattro FX full face mask DME: [facility] [place] pressure: 16/5 cm with backup rate of [...] Assessment: Problem #1: PRIMARY CENTRAL SLEEP APNEA ([id number]) This is controlled with BiPAP and oxygen [...] | | | | | | [place] [address] | | | | | | [phone] | | | | | | | | +--------+---------+ + + + | 04/30/ | Office | Sleep Medicine | Jacky Calderon PA | | | 2020 | Visit | | [address] | | | | | | [place] | | | | | | [address] | | | | | | | | +--------+---------+ + + + documented as of this encounter Visit Diagnoses + + | Diagnosis | + + | Primary central sleep apnea - Primary | + + documented in this encounter"
--- OUTSIDE RECORDS SUMMARY | ~2020-02-24 | XMS | Encounter Summary ---
Demographics + + + | Address | [address] | | | [place] [address] | + + + | Home Phone [...] | + +------+ + | Gela Trimble DINING ROOM CASHIER | PCP | | + +------+ + [...] | | | | | | | [address] | | | | | | | [place] Saez | | | | | | | Mushtaq Mailcode: | | | | | | | [address] [facility] | | | | | | | Hospital | | | | | | | [place], [place] | | | | | | | [address] | | | | | | | Phone: | | | | | | | [phone] | | | | | | | Fax: | | | | | | | [phone] | +--------+--------+ + + + + Encounter Details +--------+ + + + + | Date | Type | Department | Care Team | Description | +--------+ + + + + | 05/07/ | Results/Int | Pulmonary Function | | Unspecified asthma | | 2012 | erpretation | Lab at [facility] [address] | | (Primary Dx) | | | | [address] | | | | | | [facility] | | | | | | [place], [place] | | | | | | [address] | | | | | | [phone] | | | +--------+ + + + [...] | + +--------+ + + + | NC SPIROMETRY TEST | Routin | 05/08/2013 | [...]
--- OUTSIDE RECORDS SUMMARY | ~2020-02-24 | XMS | Encounter Summary ---
Demographics + + + | Address | [address] | | | [place] [address] | + + + | Home Phone [...] | Organization | [facility] | | | and Abram[place] | + + + | Address | Unknown | + + + | Phone | Unavailable | + + + Support + + + + + | Name | Relationship | Address | Phone | + + + + + | Projects [employer] | ECON | [id number] | | | | | Unknown | | + + + + + Care Team Providers + +------+ + | Care Print Developer Automatic Name | Role | Phone | [...] [place], [place] | | | | | [address] | [address] | | | | | [phone] | [phone] | | | | | | | [...] | | | | | [place] [address] | | | | | | [phone] | | | | | | | [...]
--- OUTSIDE RECORDS SUMMARY | ~2020-02-24 | XMS | Encounter Summary ---
Demographics + + + | Address | [address] | | | [place] [address] | + + + | Home Phone [...] | Organization | [facility] | | | and Abram[place] | + + + | Address | Unknown | + + + | Phone | Unavailable | + + + Support + + + + + | Name | Relationship | Address | Phone | + + + + + | [employer] | ECON | [id number] | | | | | Unknown | | + + + + + Care Team Providers + +------+ + | Care Rehabilitation Therapist Name | Role | Phone | [...] W | Cancellation) | | | | [address] [place], | [address] [place] | | | | | [place] [address] | [place] [address] | | | | | [phone] | [phone] | | | | | | | [...] | | | | | [place] [address] | | | | | | [phone] | | | | | | | | +--------+---------+ + + + | 04/30/ | Office | Sleep Medicine | Jacky Calderon PA | | | 2019 | Visit | | [address] | | | | | | [place] | | | | | | [address] | | | | | | | | +--------+---------+ + + + documented as of this encounter Visit Diagnoses Not on filedocumented in this encounter"
--- OUTSIDE RECORDS SUMMARY | ~2020-02-24 | XMS | Encounter Summary ---
Demographics + + + | Address | [address] | | | [place] [address] | + + + | Home Phone [...] | Organization | [facility] | | | and Abram[place] | + + + | Address | Unknown | + + + | Phone | Unavailable | + + + Support + + + + + | Name | Relationship | Address | Phone | + + + + + | Projects Horizon | ECON | [id number] | | | | | Unknown | | + + + + + Care Team Providers + +------+ + | Care Tripe Scraper Name | Role | Phone | + [...] | | | | [place] | [place] [address] | Obstructive sleep | | | | [place] [address] | [phone] | apnea (adult) | | | | [phone] | | (pediatric) | +--------+ + + [...] | | | | | [place] [address] | | | | | | [phone] | | | | | | | | +--------+---------+ + + + | 04/30/ | Office | Sleep Medicine | Jacky Calderon PA | | | 2019 | Visit | | [address] | | | | | | [place] | | | | | | [address] | | | | | | | | +--------+---------+ + + + documented as of this encounter Visit Diagnoses + + | Diagnosis | + + | Obstructive sleep apnea - Primary Obstructive sleep apnea (adult) (pediatric) | + + | Obstructive sleep apnea (adult) (pediatric) | + + documented in this encounter"
--- OUTSIDE RECORDS SUMMARY | ~2020-02-24 | XMS | Encounter Summary ---
Demographics + + + | Address | [address] | | | [place] [address] | + + + | Home Phone [...] Organization | [facility] | | | and [place]am[place] | + + + | Address | Unknown | + + + | Phone | Unavailable | + + + Support + + + + + | Name | Relationship | Address | Phone | + + + + + | [employer] | ECON | [id number] | | | | | Unknown | | + + + + + Care Team Providers + +------+ + | Care Manager Operations And Procurement Name | Role | Phone | + [...] | Disease / | Chronic | Gela Msitry, | Vera Farrar, | | | | Pulmonology | airway | BENCH LATHE OPERATOR [address] | MD | | | | | obstruction, | [facility] | | | | | | not | [address] | | | | | | elsewhere | [place], | | | | | | classified | [place] [address] | | | | | | Obstructive | Phone: | | | | | | sleep apnea | [phone] | | | | | | (adult) | Fax: | | | | | | (pediatric) | [phone] | | | | | | Procedures [...] MD | hypertension | | | | [place], | | (Primary Dx); [place] | | | | [place] [address] | | (chronic obstructive | | | | [phone] | | pulmonary disease); | | | [...] appoin tment to see Dr. Rivera in [place] at [facility]. I will get updated labs from Gela and if we need to add anything, I will send orders to [facility]. Okay to liberalize fluid intake to 2500 [...] goes. You can find these inexpensively at [facility]. Turn the humidity up on your CPAP to 5. Ask the [employer] for a humidifier for the oxygen concentrator if you don't have one. Champion nasal saline spray in your nose several [...] is currently on 5 LPM at [facility]. She Is using no oxygen at [...] ([facility]) Developmental delay Hypoxemia ([facility]) on 2L at rest, 4L with exertion Female stress incontinence Pyelonephritis Hypertension Impulse control disorder Hyperlipidemia Obesity Alcohol abuse Cocaine abuse Past Surgical History Past Surgical History Procedure Laterality Date Mouth surgery 2 teeth removed Cardiac catherization Social History: History Social History Marital Status: Single Spouse Name: N/A Number of Children: N/A Years of Education: N/A Occupational History Disabled. [employer] Social History Main Topics Smoking status: Former Smoker -- 1.00 packs/day for 20 years Types: Cigarettes Quit date: 12/10/2014 Smokeless tobacco: None Comment: restarted in August 2014, quit again 12/10/14 Alcohol Use: Yes Comment: history of abuse Drug Use: Yes Special: Cocaine Comment: history of cocaine use Sexual Activity: None Other Topics Concern None Social History Narrative Lives at [employer]. Allergies: Allergies Allergen Reactions Erythromycin Metronidazole Penicillins [...] TABS Take 2,000 Units by mouth Daily. [place] Starch POWD by Does not apply route [...] mg onto the skin every 24 hours. [place]-3 Fatty Acids (SEA-OMEGA 30) 1200 MG CAPS [...] edema. Had a chest pain yesterday. It boezna t away with relaxing. GI: Denies heartburn, [...] exertion only during the daytime. Rechecked at [facility] t visit. They are not having issues with low saturations. 6. Sleep related hypoxemia - On oxygen 5L bled in to her BiPAP machine. Plan 1. Follow up appointment to see Dr. Rivera in [place] at [facility]. 2. I will get updated labs from G[place] and if we need to add anything, I will send orders to [facility]. 3. Okay to liberalize fluid intake to [...] the BiPAP to 5. 7. Ask the [employer] for a humidifier for the oxygen concentrator if they don't h ave one. 8. Champion nasal saline spray in her nose several [...] to ensure accuracy; however, inadvertent computerized director of retail errors may be pre sent. documented in [...] | | | | | [place] [address] | | | | | | [phone] | | | | | | | | +--------+---------+ + + + | 04/30/ | Office | Sleep Medicine | Jacky Calderon PA | | | 2019 | Visit | | [address] | | | | | | [place] | | | | | | [address] | | | | | | | [...]
--- OUTSIDE RECORDS SUMMARY | ~2020-02-24 | XMS | Encounter Summary ---
Demographics + + + | Address | [address] | | | [place] [address] | + + + | Home Phone [...] | Organization | [facility] | | | and Abram[place] | + + + | Address | Unknown | + + + | Phone | Unavailable | + + + Support + + + + + | Name | Relationship | Address | Phone | + + + + + | [employer] | ECON | [id number] | | | | | Unknown | | + + + + + Care Team Providers + +------+ + | Care Cigarette Packer Name | Role | Phone | + +------+ + PCP | Unavailable | + +------+ + Encounter Details +--------+ + + + + | Date | Type | Department | Care Team | Description | +--------+ + + + + | 04/06/ | Hospital | [facility] | Conversion | | | 2011 | Encounter | [facility] | Transaction, | | | | | [facility] | Provider Unknown | | | | | [address] [facility], | | | | | | [place] [address] | (Fax) | | | | | [phone] | | | +--------+ + + + [...] | | | | | [place] [address] | | | | | | [phone] | | | | | | | [...]
--- OUTSIDE RECORDS SUMMARY | ~2020-02-24 | XMS | Encounter Summary ---
Demographics + + + | Address | [address] | | | [place] [address] | + + + | Home Phone [...] | Organization | [facility] | | | and Abram[place] | + + + | Address | Unknown | + + + | Phone | Unavailable | + + + Support + + + + + | Name | Relationship | Address | Phone | + + + + + | [employer] | ECON | [phone] | | | | | Unknown | | + + + + + Care Team Providers + +------+ + | Care Business Management Professor Name | Role | Phone | [...] | apnea (adult) | | | | [place], | | (pediatric) (Primary | | | | [place] [address] | | Dx) | | | | [phone] | | | +--------+ + + + [...] | | | | | [place] [address] | | | | | | [phone] | | | | | | | | +--------+---------+ + + + | 04/30/ | Office | Sleep Medicine | Jacky Calderon PA | | | 2020 | Visit | | [address] | | | | | | [place] | | | | | | [id number] | | | | | | | | +--------+---------+ + + + documented as of this encounter Visit Diagnoses + + | Diagnosis | + + | Obstructive sleep apnea (adult) (pediatric) - Primary | + + documented in this encounter"
--- OUTSIDE RECORDS SUMMARY | ~2020-02-24 | XMS | Encounter Summary ---
Demographics + + + | Address | [address] | | | [place] [address] | + + + | Home Phone [...] | Organization | [facility] | | | and Abramana | + + + | Address | Unknown | + + + | Phone | Unavailable | + + + Support + + + + + | Name | Relationship | Address | Phone | + + + + + | [employer] | ECON | [id number] | | | | | Unknown | | + + + + + Care Team Providers + +------+ + | Care Adjunct Professor Of [place] History Name | Role | Phone | + [...] | | | Pulmonology | airway | CARTON WAXING MACHINE OPERATOR [address] | MD | | | | | obstruction, | [address] | | | | | | not | [place], | | | | | | elsewhere | [place] [address] | | | | | | classified | Phone: | | | | | | Procedures | [phone] | | | | | | F/U | Fax: | | | | | | | [phone] | | +--------+--------+ + + + + Encounter Details +--------+---------+ + + + | Date | Type | Department | Care Team | Description | +--------+---------+ + + + | 08/08/ | Office | [facility] [place] | [place], | Primary pulmonary | | 2015 | Visit | PULMONARY [address] | Vera Farrar MD | hypertension | | | | [place], | | (Primary Dx); COPD | | | | [place] [address] | | (chronic obstructive | | | | [phone] | | pulmonary disease); | | | [...] to have a box delivered by the [employer]. Wear the finger probe through the night. Do the test on 5L bled in to th e BiPAP. Call the [employer] to have the box picked up the [...] follow up echocardiogram, which was done in [place] . Since their last visit she feels [...] Diagnosis Date COPD (chronic obstructive pulmonary disease) ([facility]) moderate, FEV1 1.40 (59%) Pulmonary hypertension ([facility]) severe, class 1, class 2, class 3 Bipolar disorder ([facility]) PTSD (post-traumatic stress disorder) Osteoarthritis Obstructive sleep apnea AHI 64.2 Vitamin D deficiency GERD (gastroesophageal reflux disease) Hypothyroidism Seizure disorder ([facility]) Developmental delay Hypoxemia on 2L at rest, 4L with exertion Female stress incontinence Pyelonephritis Hypertension Impulse control disorder Hyperlipidemia Obesity Alcohol abuse Cocaine abuse Past Surgical History Past Surgical History Procedure Laterality Date Mouth surgery 2 teeth removed Cardiac catherization Social History: History Social History Marital Status: Single Spouse Name: N/A Number of Children: N/A Years of Education: N/A Occupational History Disabled. [employer] Social History Main Topics Smoking status: Current [...] Concern None Social History Narrative Lives at [employer]. Allergies: Allergies Allergen Reactions Erythromycin Metronidazole Penicillins [...] TABS Take 2,000 Units by mouth Daily. [place] Starch POWD by Does not apply route [...] mg onto the skin every 24 hours. [place]-3 Fatty Acids (SEA-OMEGA 30) 1200 MG CAPS [...] echo in July with visit by local slunk skinner. If further increase in estimated PASP by [...] made to ensure accuracy; however, inadvertent computerized java architect errors may be pre sent. documented in [...] | | | | | [place] [address] | | | | | | [phone] | | | | | | | | +--------+---------+ + + + | 04/30/ | Office | Sleep Medicine | Jacky Calderon PA | | | 2019 | Visit | | [address] | | | | | | [place] | | | | | | [address] | | | | | | | [...] + | [facility] | [address] | [place] | [phone] | | [facility] | | [address] | | | - LABORATORY | | [...] | mL/min/1.73m2 | [facility] | | | [place] | RATE,ESTIMATED | | MEDICAL | | | | mL/min/1.04f9Njpu than | | CENTER - | | [...] [address] | [place] | [phone] | | [facility] | | [address] | | | - LABORATORY | | [...]
--- OUTSIDE RECORDS SUMMARY | ~2020-02-24 | XMS | Encounter Summary ---
Demographics + + + | Address | [address] | | | [place] [address] | + + + | Home Phone [...] Organization | [facility] | | | and [place]am[place] | + + + | Address | Unknown | + + + | Phone | Unavailable | + + + Support + + + + + | Name | Relationship | Address | Phone | + + + + + | [employer] | ECON | [id number] | | | | | Unknown | | + + + + + Care Team Providers + +------+ + | Care Foil Cutter Name | Role | Phone | + +------+ + | Yuni Shrestha | PCP | | + +------+ + Encounter Details +--------+ + + + + | Date | Type | Department | Care Team | Description | +--------+ + + + + | 01/04/ | Orders Only | [facility] [place] | [facility], | Dysphagia | | 2016 | | GASTROENTEROLOGY | BRITTANY Maddox [address] | | | | | [address] [place] | [place], [place] [address] | | | | | [address] [place], [place] | [place], [place] | | | | | [address] | [address] | | | | | [phone] | | | +--------+ + + + [...] | | | | | [place] [address] | | | | | | [phone] | | | | | | | | +--------+---------+ + + + | 04/30/ | Office | Sleep Medicine | Jacky Calderon PA | | | 2019 | Visit | | [address] | | | | | | [place] | | | | | | [address] | | | | | | | | +--------+---------+ + + + documented as of this encounter Visit Diagnoses + + | Diagnosis | + + | Dysphagia Dysphagia, unspecified | + + documented in this encounter"
--- OUTSIDE RECORDS SUMMARY | ~2020-02-24 | XMS | Encounter Summary ---
Demographics + + + | Address | [address] | | | [place] [address] | + + + | Home Phone [...] | Organization | [facility] | | | and [place] | + + + | Address | Unknown | + + + | Phone | Unavailable | + + + Support + + + + + | Name | Relationship | Address | Phone | + + + + + | [employer] | ECON | [phone] | | | | | Unknown | | + + + + + Care Team Providers + +------+ + | Care Event Marketing Specialist Name | Role | Phone | [...] | | [place], [place] | [place] [address] | | | | | [address] | [phone] | | | | | [phone] | | | +--------+ + + + [...] | | | | | [place] [address] | | | | | | [phone] | | | | | | | | +--------+---------+ + + + | 04/30/ | Office | Sleep Medicine | Jacky Calderon PA | | | 2020 | Visit | | [address] | | | | | | [place] | | | | | | [address] | | | | | | | | +--------+---------+ + + + documented as of this encounter Visit Diagnoses Not on filedocumented in this encounter"
--- OUTSIDE RECORDS SUMMARY | ~2020-02-24 | XMS | Encounter Summary ---
Demographics + + + | Address | [address] | | | [place] [address] | + + + | Home Phone [...] [facility] | | | and [place] | + + + | Address | Unknown | + + + | Phone | Unavailable | + + + Support + + + + + | Name | Relationship | Address | Phone | + + + + + | [employer] | ECON | [id number] | | | | | Unknown | | + + + + + Care Team Providers + +------+ + | Care Content Architect Name | Role | Phone | [...] Farrar MD | | | | | [place], | | | | | | [place] [address] | | | | | | [phone] | | | +--------+ + + + [...] | | | | | [place] [address] | | | | | | [phone] | | | | | | | | +--------+---------+ + + + | 04/30/ | Office | Sleep Medicine | Jacky Calderon PA | | | 2019 | Visit | | [address] | | | | | | [place] | | | | | | [address] | | | | | | | | +--------+---------+ + + + documented as of this encounter Visit Diagnoses Not on filedocumented in this encounter"
--- OUTSIDE RECORDS SUMMARY | ~2020-02-24 | XMS | Encounter Summary ---
Demographics + + + | Address | [address] | | | [place] [address] | + + + | Home Phone [...] [facility] | | | and [place] | + + + | Address | Unknown | + + + | Phone | Unavailable | + + + Support + + + + + | Name | Relationship | Address | Phone | + + + + + | [employer] | ECON | [id number] | | | | | Unknown | | + + + + + Care Team Providers + +------+ + | Care Black Ash Burner Operator Name | Role | Phone | [...] [place], [place] | | | | | [address] | [address] | | | | | [phone] | [phone] | | | | | | | [...] | | | | | [place] [address] | | | | | | [phone] | | | | | | | [...]
--- OUTSIDE RECORDS SUMMARY | ~2020-02-24 | XMS | Encounter Summary ---
Demographics + + + | Address | [address] | | | [place] [address] | + + + | Home Phone [...] Organization | [facility] | | | and [place] | + + + | Address | Unknown | + + + | Phone | Unavailable | + + + Support + + + + + | Name | Relationship | Address | Phone | + + + + + | [employer] | ECON | [id number] | | | | | Unknown | | + + + + + Care Team Providers + +------+ + | Care Packaging Designer Name | Role | Phone | [...] | | ogy | Dysphagia, | Yuni Hnah, | Varsha, | | | | | pharyngeal | BLOWER AND COMPRESSOR ASSEMBLER [address] | BLOWER AND COMPRESSOR ASSEMBLER [address] | | | | | phase | [address] | [place], [place] | | | | | Procedures | [place], | [address] [place] | | | | | Office Visit | [place] [address] | [place], [place] | | | | | | Phone: | [address] Phone: | | | | | | [phone] | [phone] | | | | | | Fax: | Fax: | | | | | | [phone] | [phone] | +--------+--------+ + + + + Encounter [...] | [address] [place] | [place], [place] [address] | esophagitis presence | | | | [address] [place], [place] | [place], [place] | not specified | | | | [address] | [address] | (Primary Dx); | | | | [phone] | | Esophageal | | | | [...] COPD (chronic obstructive pulmonary disease) ([facility]) moderate, FEV1 1.40 (59%) Pulmonary [...] Years of Education: N/A Occupational History Disabled. [employer] Social History Main Topics Smoking status: Former Smoker -- 1.00 packs/day for 20 years Types: Cigarettes Quit date: 12/15/2015 Smokeless tobacco: Never Used Alcohol Use: No Drug Use: No Sexual Activity: Not on file Other Topics Concern Not on file Social History Narrative Lives at [employer]. Review of systems: Constitutional:Denies any fevers, chills, [...] | | | | | [place] [address] | | | | | | [phone] | | | | | | | [...]
--- OUTSIDE RECORDS SUMMARY | ~2020-02-24 | XMS | Encounter Summary ---
Demographics + + + | Address | [address] | | | [place] [address] | + + + | Home Phone [...] Organization | [facility] | | | and [place] | + + + | Address | Unknown | + + + | Phone | Unavailable | + + + Support + + + + + | Name | Relationship | Address | Phone | + + + + + | [employer] | ECON | [id number] | | | | | Unknown | | + + + + + Care Team Providers + +------+ + | Care Gum Scoring Machine Operator Name | Role | Phone [...] + | 01/23/ | Office | [facility] | Jacky Calderon PA | Primary central | | 2013 | Visit | SLEEP DISORDER [address] | [address] | sleep apnea (Primary | | | | [address] [place] | [place], [place] | Dx) | | | | [place] [address] | [address] | | | | | [phone] | | | +--------+---------+ + + + [...] 12/26/2013 date of polysomnography: 03/13/[address] [facility] AHI: 64.2 O2%: n/a Machine type: Respironics BiPAP Auto with [employer] Quattro FX full face mask obtained from: [facility] pressure: 16/5 cm with backup rate [...] months, sooner prn. Fifteen minutes were spent [id number] , with the majority of time spent [...] | | | | | [place] [address] | | | | | | [phone] | | | | | | | | +--------+---------+ + + + | 04/30/ | Office | Sleep Medicine | Jacky Calderon PA | | | 2019 | Visit | | [address] | | | | | | [place] | | | | | | [address] | | | | | | | | +--------+---------+ + + + documented as of this encounter Visit Diagnoses + + | Diagnosis | + + | Primary central sleep apnea - Primary | + + documented in this encounter"
--- OUTSIDE RECORDS SUMMARY | ~2020-02-24 | XMS | Encounter Summary ---
Demographics + + + | Address | [address] | | | [place] [address] | + + + | Home Phone [...] Organization | [facility] | | | and [place]am[place] | + + + | Address | Unknown | + + + | Phone | Unavailable | + + + Support + + + + + | Name | Relationship | Address | Phone | + + + + + | [employer] | ECON | [id number] | | | | | Unknown | | + + + + + Care Team Providers + +------+ + | Care Board Of Education Secretary Name | Role | Phone | [...] | | | | | pharyngeal | PURIFICATION SUPERVISOR [address] | PURIFICATION SUPERVISOR [address] | | | | | phase | [address] | [place], [place] | | | | | Procedures | [place], | [address] [place] | | | | | Office Visit | [place] [address] | [place], [place] | | | | | | Phone: | [address] Phone: | | | | | | [phone] | [phone] | | | | | | Fax: | Fax: | | | | | | [phone] | [phone] | +--------+--------+ + + + + Encounter [...] [address] [place] | [place], [place] [address] | dysphagia (Primary | | | | [address] [place], [place] | [place], [place] | Dx); Chronic | | | | [address] | [address] | obstructive | | | | [phone] | | pulmonary disease, | | | [...] Years of Education: N/A Occupational History Disabled. [employer] Social History Main Topics Smoking status: Former Smoker -- 1.00 packs/day for 20 years Types: Cigarettes Quit date: 12/15/2015 Smokeless tobacco: Never Used Comment: Smoking a cigarette every 2 hours Alcohol Use: No Drug Use: No Sexual Activity: Not on file Other Topics Concern Not on file Social History Narrative Lives at [employer]. Review of systems: Constitutional:Denies any fevers, chills, [...] prescribed. Discussed that if PPI is used scientific manager, Calcium an d Vitamin D should be [...] | | | | | [place] [address] | | | | | | [phone] | | | | | | | | +--------+---------+ + + + | 04/30/ | Office | Sleep Medicine | Jacky Calderon PA | | | 2019 | Visit | | [address] [place] [place] [address] | | | | | | [...]
--- OUTSIDE RECORDS SUMMARY | ~2020-02-24 | XMS | Encounter Summary ---
Demographics + + + | Address | [address] | | | [place] [address] | + + + | Home Phone [...] | [facility] | | | and [place]am[place] | + + + | Address | Unknown | + + + | Phone | Unavailable | + + + Support + + + + + | Name | Relationship | Address | Phone | + + + + + | [employer] | ECON | [id number] | | | | | Unknown | | + + + + + Care Team Providers + +------+ + | Care Life Coach Name | Role | Phone | + +------+ + | Shanice Huang MD | PCP | | + +------+ + Encounter Details +--------+ + + + + | Date | Type | Department | Care Team | Description | +--------+ + + + + | 06/27/ | Orders Only | [facility] | Modesta Cruz, | | | 2018 | | [address] | SENIOR GAME DESIGNER [address] | | | | | [address] | [address] | | | | | [place], [place] | [place] [address] | | | | | [address] | [phone] | | | | | [phone] | | | +--------+ + + + [...] | | | | | [place] [address] | | | | | | [phone] | | | | | | | | +--------+---------+ + + + | 04/30/ | Office | Sleep Medicine | Jacky Calderon PA | | | 2019 | Visit | | [address] | | | | | | [place] | | | | | | [address] | | | | | | | [...] | | | 0.80 m/s MV Dec Schuyler: 2.28 m/s2 MV DecT: 328.32 ms MV [...] TR Vmax: 3.20 m/s | | | Academic Computing Director: JERRI Authenticated by: Vern Boston Report [...] cmLVPWd: | | 0.71 cmLVOT Area: 2.68 [id number] Diam: 1.84 cm%FS: 48.21 %EF(Teich): 79.87 | | %ESV(Teich): 16.84 mlLVIDs: 2.23 cmSV(Teich): 66.85 mlRVIDd: 2.99 cmLVEF MOD | | A4C: 62.52 %SV MOD A4C: 57.86 mlLVEDV MOD A4C: 92.54 mlLVLd A4C: 7.40 cmLVESV | | MOD A4C: 34.68 mlLVLs A4C: 6.14 cmLAESV(A-L): 40.81 mlLAESV Index (A-L): 23.05 | | ml/m2LAAs A2C: 16.03 hk5VXTBC A-L A2C: 43.10 mlLALs A2C: 5.06 cmLAAs A4C: 14.91 | | wb0MKLCP A-L A4C: 37.94 mlLALs A4C: 4.97 cmRAAs: 14.88 dc0ABJVG A-L: 41.10 | | mlRAESV MOD: 39.25 mlRALs: 4.57 cmTAPSE: 2.21 cmAV maxP.90 mmHgAV meanPG: | | 6.42 mmHgAV Vmax: 1.72 m/Augustus Vmean: 1.18 m/Augustus VTI: 29.25 cmAVA Vmax: 2.30 | | cm2AVA (VTI): 2.65 np4RQMQ (Vmax): 0.00 cm2/m2AVAI (VTI): 0.00 cm2/m2LVOT maxPG: | | 8.77 mmHgLVOT meanP.18 mmHgLVSI Dopp: 43.93 ml/m2LVSV Dopp: 77.77 mlLVOT | | Vmax: 1.48 m/sLVOT Vmean: 0.92 m/sLVOT VTI: 28.95 cmMV A Royal: 0.80 m/sMV Dec | | Schuyler: 2.28 m/s2MV DecT: 328.32 msMV E Royal: 0.75 m/sMV E/A Ratio: 0.93MV PHT: | | 95.21 msMVA By PHT: 2.31 ug2Swxmnj e': 0.04 m/sSeptal E/e': 15.90Lateral e': | | 0.08 m/sLateral E/e': 8.87RAP: 5 mmHgRVSP: 46.05 mmHgTR maxP.05 mmHgTR | | Vmax: 3.20 m/s Academic Computing Director: JERRIAuthenticated by: Vern Joseph Date/Time: | [...] A Royal: 0.80 m/s | |MV Dec Schuyler: 2.28 m/s2 | |MV DecT: 328.32 ms [...] |TR Vmax: 3.20 m/s | | | |Academic Computing Director: DBS | |Authenticated by: Vern Boston [...]
--- OUTSIDE RECORDS SUMMARY | ~2020-02-24 | XMS | Encounter Summary ---
Demographics + + + | Address | [address] | | | [place] [address] | + + + | Home Phone [...] Organization | [facility] | | | and [place]am[place] | + + + | Address | Unknown | + + + | Phone | Unavailable | + + + Support + + + + + | Name | Relationship | Address | Phone | + + + + + | [employer] | ECON | [phone] | | | | | Unknown | | + + + + + Care Team Providers + +------+ + | Care Granite Worker Name | Role | Phone | [...] | | [address] [place], [place] | [place] [address] | | | | | [address] | [phone] | | | | | [phone] | | | +--------+ + + + [...] | | | | | [place] [address] | | | | | | [phone] | | | | | | | | +--------+---------+ + + + | 04/30/ | Office | Sleep Medicine | Jacky Calderon PA | | | 2020 | Visit | | [address] | | | | | | [place] | | | | | | [address] | | | | | | | | +--------+---------+ + + + documented as of this encounter Visit Diagnoses Not on filedocumented in this encounter"
--- OUTSIDE RECORDS SUMMARY | ~2020-02-24 | XMS | Encounter Summary ---
Demographics + + + | Address | [address] | | | [place] [address] | + + + | Home Phone | | + + + | Preferred Language | Unknown | + + + | Marital Status | Single | + + + | Rastafari Affiliation | NRP | + + + | Race | White | + + + | Ethnic Group | Not or | + + + Author + + + | Author | [facility] | + + + | Organization | [facility] | + + + | Address | Unknown | + + + | Phone | Unavailable | + + + Support + + +---------+ + | Name | Relationship | Address | Phone | + + +---------+ + | Lidia Thibodeaux | ECON | Unknown | | + + +---------+ + Care Team Providers + +------+ + | Care Broomcorn Press Feeder Name | Role | Phone | + +------+ + | Gela Trimble NP | PCP | | + +------+ + Encounter Details +--------+ + + + + | Date | Type | Department | Care Team | Description | +--------+ + + + + | 05/04/ | Results | Stress | Other, Faculty | | | 2012 | Only | Echocardiography | [phone] | | | | | [address] | | | | | | Loop Mailcode: | | | | | | [id number] Outpatient | | | | | | Clinic Building | | | | | | [place], [place] | | | | | | [address] | | | | | | [phone] | | | +--------+ + + + [...] DEPT OF | [address] | [place], [place] | | | CARDIOLOGY | [facility] | [address] | | + + + + + documented in this encounter Visit Diagnoses Not on filedocumented in this encounter"
--- OUTSIDE RECORDS SUMMARY | ~2020-02-24 | XMS | Encounter Summary ---
Demographics + + + | Address | [address] | | | [place] [address] | + + + | Home Phone [...] Organization | [facility] | | | and [place] | + + + | Address | Unknown | + + + | Phone | Unavailable | + + + Support + + + + + | Name | Relationship | Address | Phone | + + + + + | [employer] | ECON | [phone] | | | | | Unknown | | + + + + + Care Team Providers + +------+ + | Care Small Piece Cutter Name | Role | Phone | + +------+ + | Yuni Shrestha | PCP | | + +------+ + Encounter Details +--------+ + + + + | Date | Type | Department | Care Team | Description | +--------+ + + + + | 06/11/ | Abstract | [facility] [place] | [facility], | | | 2016 | | GASTROENTEROLOGY | BRITTANY Maddox [address] | | | | | [address] [place] | [place], [place] | | | | | [address] [place], [place] | [place], [place] | | | | | [address] | [address] | | | | | [phone] | | | +--------+ + + + [...] | | | | | [place] [address] | | | | | | [phone] | | | | | | | | +--------+---------+ + + + | 04/30/ | Office | Sleep Medicine | Jacky Calderon PA | | | 2020 | Visit | | [address] | | | | | | [place] | | | | | | [address] | | | | | | | | +--------+---------+ + + + documented as of this encounter Visit Diagnoses Not on filedocumented in this encounter"
--- OUTSIDE RECORDS SUMMARY | ~2020-02-24 | XMS | Encounter Summary ---
Demographics + + + | Address | [address] | | | [place] [address] | + + + | Home Phone [...] | [facility] | | | and [place] | + + + | Address | Unknown | + + + | Phone | Unavailable | + + + Support + + + + + | Name | Relationship | Address | Phone | + + + + + | [employer] | ECON | [id number] | | | | | Unknown | | + + + + + Care Team Providers + +------+ + | Care Risk Assessment Consultant Name | Role | Phone | [...] | hypertension (HCC) | | | | [place], | | | | | | [place] [address] | | | | | | [phone] | | | +--------+ + + + [...] | | | | | [place] [address] | | | | | | [phone] | | | | | | | | +--------+---------+ + + + | 04/30/ | Office | Sleep Medicine | Jacky Calderon PA | | | 2020 | Visit | | [address] | | | | | | [place] | | | | | | [address] | | | | | | | | +--------+---------+ + + + documented as of this encounter Visit Diagnoses + + | Diagnosis | + + | Pulmonary hypertension (HCC) Other chronic pulmonary heart diseases | + + documented in this encounter"
--- OUTSIDE RECORDS SUMMARY | ~2020-02-24 | XMS | Encounter Summary ---
Demographics + + + | Address | [address] | | | [place] [address] | + + + | Home Phone [...] Organization | [facility] | | | and [place]am[place] | + + + | Address | Unknown | + + + | Phone | Unavailable | + + + Support + + + + + | Name | Relationship | Address | Phone | + + + + + | [employer] | ECON | [id number] | | | | | Unknown | | + + + + + Care Team Providers + +------+ + | Care Sanitation Worker Hosing Machinery Name | Role | Phone | + +------+ + | Gela Trimble BROWNELL OPERATOR | PCP | | + +------+ [...] [address] | | | | | ([facility]) | MD [address] | | | | | | [address] | [address] | | | | | | [place], | [place], [place] | | | | | | [place] [address] | [address] Phone: | | | | | | | [phone] | | | | | | | Fax: | | | | | | | [phone] | +--------+ + + + + + [...] | | MD [address] | | | | | [address] | [place], | | | | | | [place], | [place] [address] | | | | | | [place] [address] | Phone: | | | | | | | [phone] | | | | | | | Fax: | | | | | | | [phone] | +--------+ + + + + + [...] [address] | | | | | ([facility]) | [address] | | | | | [address] | [address] | | | | | | [place], | [place], [place] | | | | | | [place] [address] | [address] Phone: | | | | | | | [phone] | | | | | | | Fax: | | | | | | | [phone] | +--------+ + + + + + Encounter Details +--------+---------+ + + + | Date | Type | Department | Care Team | Description | +--------+---------+ + + + | 07/04/ | Office | [facility] | Off[place], | Pulmonary | | 2012 | Visit | PULMONARY [address] | Vera Farrar MD | hypertension ([facility]) | | | | [address] [place], | | (Primary Dx); [place] | | | | [place] [address] | | (obstructive sleep | | | | [phone] | | apnea); Hypoxemia; | | | | | | COPD (chronic | | | | | | obstructive | | | | | | pulmonary disease) | | | | | | ([facility]); Congestive | | | | | | heart failure with | | | | | | LV diastolic | | | | | | dysfunction, NYHA | | | | | | class 3 ([facility]); | | | | | | [...] Care [facility] [address] [place], [address] Referring Provider: Nai Otoole, Gela FELICIANO Margarita [...] Years of Education: N/A Occupational History Disabled. [employer] Social History Main Topics Smoking status: Former Smoker -- 1.0 packs/day for 20 years Types: Cigarettes Quit date: 05/14/2013 Smokeless tobacco: None Alcohol Use: Yes history of abuse Drug Use: Yes Special: Cocaine history of cocaine use Sexually Active: None Other Topics Concern None Social History Narrative Lives at [employer]. Allergies: Allergies Allergen Reactions Erythromycin Metronidazole Penicillins [...] Place 1 applicator vaginally 2 times daily. Grottoes-3 Fatty Acids (SEA-OMEGA 30) 1200 MG CAPS [...] to them, but she was at a senior living in the interim. I am going to [...] ordered today. 7.See pulmonary hypertension specialist in [place], Dr. Rivera to address question of medi [...] made to ensure accuracy; however, inadvertent computerized dragger errors may be pre sent. documented in [...] | | | | | [place] [address] | | | | | | [phone] | | | | | | | [...] | + + +--------+ + + | CANDLES POURER Ab, IgG | Lab | Routin | Pulmonary | Expected: | | | | e | hypertension (HCC) | 07/04/2013, Expires: | | | | | | 07/04/2014 | + + +--------+ + + | Rowley Ab, IgG | Lab | Routin | Pulmonary | Expected: | | | | e | hypertension ([facility]) | 07/04/2013, Expires: | | | | | | 07/04/2014 | + + +--------+ + + | Pulse oximetry | Respiratory | Routin | Pulmonary | Expected: | | titation | Care | e | hypertension ([facility]) | 07/04/2013, Expires: | | | | | | 07/04/2014 | + + +--------+ + + | Oxygen Therapy | Respiratory | Routin | Pulmonary | Expected: | | | Care | e | hypertension ([facility]) | 07/04/2013, Expires: | | | [...] | | MEDICAL | | | | [id number]: [id number] | | CENTER - | | | [...] + | [facility] | [address] | [place] | [phone] | | [facility] | | [address] | | | - LABORATORY | | | | + + + + + | [facility] | [address] | [place] | | | [facility] | | [address], [facility] | | | - LABORATORY [...] [facility] | | | | | | [facility] | | | | | | MEDICAL | | | | | | CENTER - | | | | | | LABORATORY | | + +-------+ + + + + + | Specimen | + + | Blood specimen | | (specimen) | + + + + + + + | Performing | Address | City/State[facility] | Phone Number | | Organization | | | | + + + + + | [facility] | [address] | [place] | [phone] | | [facility] | | [address] | | | - LABORATORY | | | | + + + + + | [facility] | [address] | [place] | | | [facility] | | [address], [facility] | | | - LABORATORY [...]
--- OUTSIDE RECORDS SUMMARY | ~2020-02-24 | XMS | Encounter Summary ---
Demographics + + + | Address | [address] | | | [place] [address] | + + + | Home Phone [...] Organization | [facility] | | | and [place] | + + + | Address | Unknown | + + + | Phone | Unavailable | + + + Support + + + + + | Name | Relationship | Address | Phone | + + + + + | [employer] | ECON | [id number] | | | | | Unknown | | + + + + + Care Team Providers + +------+ + | Care Interpreter Deaf Name | Role | Phone | + [...] + + | 06/14/ | Office | [facility] | Jacky Calderon PA | Primary central | | 2018 | Visit | SLEEP DISORDER 401 | [address] | sleep apnea (Primary | | | | [address] [place] | [place] | Dx) | | | | [place] [address] | [address] | | | | | [phone] | | | +--------+---------+ + + + [...] PDT1. Go to [facility] [place] to get: -Respironics AmaraView full face mask [...] visit: 07/26/2017 date of polysomnography: 03/13/2013 at [facility] AHI: 64.2 O2%: n/a Machine type: Respironics BiPAP Auto Mask type: ResMed Quattro FX full face mask DME: [facility] in [place] pressure: 16/5 cm with backup rate of [...] full face mask. She may consider using [place], if [facility] in [place] does not get her the correct mask. [...] Assessment: Problem #1: PRIMARY CENTRAL SLEEP APNEA ([id number]) This is controlled with BiPAP and oxygen [...] | | | | | [place] [address] | | | | | | [phone] | | | | | | | | +--------+---------+ + + + | 04/30/ | Office | Sleep Medicine | Jacky Calderon PA | | | 2019 | Visit | | [address] | | | | | | [place] | | | | | | [address] | | | | | | | | +--------+---------+ + + + documented as of this encounter Visit Diagnoses + + | Diagnosis | + + | Primary central sleep apnea - Primary | + + documented in this encounter"
--- OUTSIDE RECORDS SUMMARY | ~2020-02-24 | XMS | Encounter Summary ---
Demographics + + + | Address | [address] | | | [place] [address] | + + + | Home Phone [...] | Organization | [facility] | | | and [place] | + + + | Address | Unknown | + + + | Phone | Unavailable | + + + Support + + + + + | Name | Relationship | Address | Phone | + + + + + | [employer] | ECON | [phone] | | | | | Unknown | | + + + + + Care Team Providers + +------+ + | Care Forest Economics Professor Name | Role | Phone | [...] + + | 06/14/ | Office | [facility] | Jacky Calderon PA | Primary central | | 2018 | Visit | SLEEP DISORDER 401 | [address] | sleep apnea (Primary | | | | [address] [place] | [place] | Dx) | | | | [place] [address] | [address] | | | | | [phone] | | | +--------+---------+ + + + [...] PDT1. Go to [facility] [place] to get: -Respironics AmaraView full face mask [...] 07/26/2017 date of polysomnography: 03/13/[address] [facility] AHI: 64.2 O2%: n/a Machine type: Respironics BiPAP Auto Mask type: ResMed Quattro FX full face mask DME: [facility] in [place] pressure: 16/5 cm with backup rate of [...] full face mask. She may consider using [place], if [facility] in [place] does not get her the correct mask. [...] Assessment: Problem #1: PRIMARY CENTRAL SLEEP APNEA ([id number]) This is controlled with BiPAP and oxygen [...] | | | | | [place] [address] | | | | | | [phone] | | | | | | | | +--------+---------+ + + + | 04/30/ | Office | Sleep Medicine | Jacky Calderon PA | | | 2019 | Visit | | [address] | | | | | | [place] | | | | | | [address] | | | | | | | | +--------+---------+ + + + documented as of this encounter Visit Diagnoses + + | Diagnosis | + + | Primary central sleep apnea - Primary | + + documented in this encounter"
--- OUTSIDE RECORDS SUMMARY | ~2020-02-24 | XMS | Encounter Summary ---
Demographics + + + | Address | [address] | | | [place] [address] | + + + | Home Phone [...] | Organization | [facility] | | | and [place] | + + + | Address | Unknown | + + + | Phone | Unavailable | + + + Support + + + + + | Name | Relationship | Address | Phone | + + + + + | [employer] | ECON | [phone] | | | | | Unknown | | + + + + + Care Team Providers + +------+ + | Care External Relations Director Name | Role | Phone | [...] + + | 07/23/ | Office | [facility] | Jacky Calderon PA | Primary central | | 2016 | Visit | SLEEP DISORDER 401 | [address] | sleep apnea (Primary | | | | [address] [place] | [place] | Dx) | | | | [place] [address] | [address] | | | | | [phone] | | | +--------+---------+ + + + [...] was: 05/22/2015 date of polysomnography: 03/13/2013 at [facility] AHI: 64.2 O2%: n/a Machine type: Respironics BiPAP Auto with ResMed Quattro FX full face mask obtained from: [employer] in [place] pressure: 16/5 cm with backup rate of [...] Assessment: Problem #1: PRIMARY CENTRAL SLEEP APNEA (HPT70-X25.31) This is controlled with BiPAP and oxygen at 5 L/min. Her compliance is going very well. Plan: 1. She is to continue with BiPAP indefinitely. 2. She is to touch base with her medical supplier twice per year to ensure that her equipm ent is satisfactory. I will follow up with her in 1 year, sooner prn. Fifteen minutes were spent [id number], with the majority of time spent in [...] | | | | | [place] [address] | | | | | | [phone] | | | | | | | | +--------+---------+ + + + | 04/30/ | Office | Sleep Medicine | Jacky Calderon PA | | | 2020 | Visit | | [address] | | | | | | [place] | | | | | | [address] | | | | | | | | +--------+---------+ + + + documented as of this encounter Visit Diagnoses + + | Diagnosis | + + | Primary central sleep apnea - Primary | + + documented in this encounter"
--- OUTSIDE RECORDS SUMMARY | ~2020-02-24 | XMS | Encounter Summary ---
Demographics + + + | Address | [address] | | | [place] [address] | + + + | Home Phone [...] + | [employer] | ECON | [phone] | | | | | Unknown | | + + + + + Care Team Providers + +------+ + | Care Ceramic Tile Installation Helper Name | Role | Phone | [...] [place], [place] | | | | | [address] | [address] | | | | | [phone] | [phone] | | | | | | | [...] | | | | | [place] [address] | | | | | | [phone] | | | | | | | | +--------+---------+ + + + | 04/30/ | Office | Sleep Medicine | Jacky Calderon PA | | | 2020 | Visit | | [address] | | | | | | [place] | | | | | | [address] | | | | | | | | +--------+---------+ + + + documented as of this encounter Visit Diagnoses Not on filedocumented in this encounter"
--- OUTSIDE RECORDS SUMMARY | ~2020-02-24 | XMS | Encounter Summary ---
Demographics + + + | Address | [address] | | | [place] [address] | + + + | Home Phone [...] | Organization | [facility] | | | and [place] | + + + | Address | Unknown | + + + | Phone | Unavailable | + + + Support + + + + + | Name | Relationship | Address | Phone | + + + + + | [employer] | ECON | [phone] | | | | | Unknown | | + + + + + Care Team Providers + +------+ + | Care Youth Ministry Director Name | Role | Phone | [...] | hypertension (HCC) | | | | [place], | | (Primary Dx); | | | | [place] [address] | | Obstructive sleep | | | | [phone] | | apnea; COPD (chronic | | [...] MD [facility] [facility] [address] [place], [address] [facility] Keo Rowley is a 47 y.o. [...] get an appointment with Dr. Rivera in [place], which is next week. Initially appar ently [...] Years of Education: N/A Occupational History Disabled. [employer] Social History Main Topics Smoking status: Former Smoker -- 1.0 packs/day for 20 years Types: Cigarettes Quit date: 05/14/2013 Smokeless tobacco: None Alcohol Use: Yes history of abuse Drug Use: Yes Special: Cocaine history of cocaine use Sexually Active: None Other Topics Concern None Social History Narrative Lives at [employer]. Allergies: Allergies Allergen Reactions Erythromycin Metronidazole Penicillins [...] Active Take 2,000 Units by mouth Daily. Inman Starch POWD Active by Does not apply [...] patch onto the skin every 24 hours. Hayward-3 Fatty Acids (SEA-OMEGA 30) 1200 MG CAPS [...] autoantibody IgG Latest Range: <1.0 AI <0.2 CLINICAL REGISTERED NURSE Autoantibody Latest Range: <1.0 AI 0.4 ROWLEY [...] sooner with concerns. CC: Gela Guerrero C, TEXTILE SCRAP SALVAGER, Lashae Rivera MD Portions of this report were transcribed using voice recognition software. Every effort wa s made to ensure accuracy; however, inadvertent computerized trade show manager errors may be pre sent. documented [...] | | | | | [place] [address] | | | | | | [phone] | | | | | | | | +--------+---------+ + + + | 04/30/ | Office | Sleep Medicine | Jacky Calderon PA | | | 2019 | Visit | | [address] | | | | | | [place] | | | | | | [address] | | | | | | | [...]
--- OUTSIDE RECORDS SUMMARY | ~2020-02-24 | XMS | Encounter Summary ---
Demographics + + + | Address | [address] | | | [place] [address] | + + + | Home Phone [...] | [facility] | | | and [place] | + + + | Address | Unknown | + + + | Phone | Unavailable | + + + Support + + + + + | Name | Relationship | Address | Phone | + + + + + | [employer] | ECON | [phone] | | | | | Unknown | | + + + + + Care Team Providers + +------+ + | Care Quartz Cutter Name | Role | Phone | [...] | RN | | | | | [place], | | | | | | [place] [address] | | | | | | [phone] | | | +--------+ + + + [...] [address] | | | | | | [phone] | | | | | | | | +--------+---------+ + + + | 04/30/ | Office | Sleep Medicine | Jacky Calderon PA | | | 2019 | Visit | | [address] | | | | | | [place] | | | | | | [address] | | | | | | | | +--------+---------+ + + + documented as of this encounter Visit Diagnoses Not on filedocumented in this encounter"
--- OUTSIDE RECORDS SUMMARY | ~2020-02-24 | XMS | Encounter Summary ---
Demographics + + + | Address | [address] | | | [place] [address] | + + + | Home Phone [...] | [facility] | | | and [place] | + + + | Address | Unknown | + + + | Phone | Unavailable | + + + Support + + + + + | Name | Relationship | Address | Phone | + + + + + | [employer] | ECON | [id number] | | | | | Unknown | | + + + + + Care Team Providers + +------+ + | Care Centrifugal Separator Name | Role | Phone | + [...] | | | | ABDIRASHID BROTHERS | [place], [place] | | | | | [place] | [address] | | | | | [address] | [phone] | | | | | [phone] | | | +--------+ + + + [...] | | | | | [place] [address] | | | | | | [phone] | | | | | | | | +--------+---------+ + + + | 04/30/ | Office | Sleep Medicine | Jacky Calderon PA | | | 2020 | Visit | | [address] | | | | | | [place] | | | | | | [address] | | | | | | | | +--------+---------+ + + + documented as of this encounter Visit Diagnoses Not on filedocumented in this encounter"
--- OUTSIDE RECORDS SUMMARY | ~2020-02-24 | XMS | Encounter Summary ---
Demographics + + + | Address | [address] | | | [place] [address] | + + + | Home Phone [...] + + | Organization | [facility] | | | and [place] | + + + | Address | Unknown | + + + | Phone | Unavailable | + + + Support + + + + + | Name | Relationship | Address | Phone | + + + + + | [employer] | ECON | [phone] | | | | | Unknown | | + + + + + Care Team Providers + +------+ + | Care Collar Baster Jumpbasting Name | Role | Phone | + [...] | | | | ABDIRASHID BROTHERS | [place], [place] | | | | | [place] | [address] | | | | | [address] | [phone] | | | | | [phone] | | | +--------+ + + + [...] | | | | | [place] [address] | | | | | | [phone] | | | | | | | | +--------+---------+ + + + | 04/30/ | Office | Sleep Medicine | Jacky Calderon PA | | | 2020 | Visit | | [address] | | | | | | [place] | | | | | | [address] | | | | | | | | +--------+---------+ + + + documented as of this encounter Visit Diagnoses Not on filedocumented in this encounter"
--- OUTSIDE RECORDS SUMMARY | ~2020-02-24 | XMS | Encounter Summary ---
Demographics + + + | Address | [address] | | | [place] [address] | + + + | Home Phone [...] + | Organization | [facility] | | | and [place] | + + + | Address | Unknown | + + + | Phone | Unavailable | + + + Support + + + + + | Name | Relationship | Address | Phone | + + + + + | [employer] | ECON | [id number] | | | | | Unknown | | + + + + + Care Team Providers + +------+ + | Care Graphic Design Assistant Name | Role | Phone | [...] | | pulmonary | [place] MATTHEWS | [place], [place] | | | | | disease, | [place], | [address] | | | | | unspecified | [place] | Phone: | | | | | (HCC) | [address] | [phone] | | | | | Procedures | Phone: | Fax: | | | | | OFFICE VISIT | [phone] | [phone] | | | | | EXTENDED | Fax: | | | | | | | [phone] | | +--------+--------+ + + + + Encounter Details +--------+---------+ + + + | Date | Type | Department | Care Team | Description | +--------+---------+ + + + | 01/31/ | Office | [facility] | Scout Arthur, | Primary pulmonary | | 2019 | Visit | PULMONARY [address] | MD [address] | hypertension (HCC) | | | | [place], | [place] [address] | (Primary Dx); | | | | [place] [address] | [phone] | Hypoxia | | | | [phone] | | | +--------+---------+ + + + [...] Scout Arthur MD - 01/31/2019 2:00 PM [id number] former smoker with primar y pulmonary hypertension [...] so we are asking [facility] to give her a new [...] is a note from Dr. Huang in [place] that CMP, CBC, and ESR w ere [...] BiPAP equipme nt. We spent 20 minutes, [id number], at least half in counseling. Word processing [...] | | | | | [place] [address] | | | | | | [phone] | | | | | | | | +--------+---------+ + + + | 04/30/ | Office | Sleep Medicine | Jacky Calderon PA | | | 2019 | Visit | | [address] | | | | | | [place] | | | | | | [address] | | | | | | | | +--------+---------+ + + + documented as of this encounter Visit Diagnoses + + | Diagnosis | + + | Primary pulmonary hypertension (HCC) - Primary Primary pulmonary hypertension | + + | Hypoxia Hypoxemia | + + documented in this encounter
--- OUTSIDE RECORDS SUMMARY | ~2020-02-24 | XMS | Encounter Summary ---
Demographics + + + | Address | [address] | | | [place] [address] | + + + | Home Phone [...] | Organization | [facility] | | | and [place] | + + + | Address | Unknown | + + + | Phone | Unavailable | + + + Support + + + + + | Name | Relationship | Address | Phone | + + + + + | [employer] | ECON | [phone] | | | | | Unknown | | + + + + + Care Team Providers + +------+ + | Care Cinder Block Maker Name | Role | Phone | [...] + + | 11/20/ | Office | [facility] | Jacky Calderon PA | Primary central | | 2014 | Visit | SLEEP DISORDER 401 | [address] | sleep apnea (Primary | | | | [address] [place] | [place], [place] | Dx) | | | | [place] [address] | [address] | | | | | [phone] | | | +--------+---------+ + + + [...] was: 10/16/2013 date of polysomnography: 03/13/2013 at [facility] AHI: 64.2 O2%: n/a Machine type: Respironics BiPAP Auto with ResMed Quattro FX full face mask obtained from: [facility] pressure: 18/14 cm 19/5 cm Nights using BiPAP: 34/35 average usage (all nights): 6:27 6:15 average usage (nights used): 6:47 6:26 AHI: 11.0 62.5 Jessie comes in for BiPAP compliance. She was referred by Dr. Lainez to help with her pr oblems with leaks and her apnea not being completely controlled. We had [facility] in [place] change her pressure to the original prescription [...] study, sooner prn. Fifteen minutes were spent [id number], with the majority of time spent in [...] | | | | | [place] [address] | | | | | | [phone] | | | | | | | [...]
--- OUTSIDE RECORDS SUMMARY | ~2020-02-24 | XMS | Encounter Summary ---
Demographics + + + | Address | [address] | | | [place] [address] | + + + | Home Phone [...] Organization | [facility] | | | and [place] | + + + | Address | Unknown | + + + | Phone | Unavailable | + + + Support + + + + + | Name | Relationship | Address | Phone | + + + + + | [employer] | ECON | [phone] | | | | | Unknown | | + + + + + Care Team Providers + +------+ + | Care Water Plant Pump Operator Name | Role | Phone | + +------+ + PCP | Unavailable | + +------+ + Encounter Details +--------+ + + + + | Date | Type | Department | Care Team | Description | +--------+ + + + + | 04/06/ | Hospital | [facility] | Conversion | | | 2011 | Encounter | [facility] | Transaction, | | | | | [facility] | Provider Unknown | | | | | [facility], | | | | | | [place] [address] | (Fax) | | | | | [phone] | | | +--------+ + + + [...] | | | | | [place] [address] | | | | | | [phone] | | | | | | | [...]
--- OUTSIDE RECORDS SUMMARY | ~2020-02-24 | XMS | Encounter Summary ---
Demographics + + + | Address | [address] | | | [place] [address] | + + + | Home Phone [...] Organization | [facility] | | | and [place] | + + + | Address | Unknown | + + + | Phone | Unavailable | + + + Support + + + + + | Name | Relationship | Address | Phone | + + + + + | [employer] | ECON | [phone] | | | | | Unknown | | + + + + + Care Team Providers + +------+ + | Care Roofer Applicator Name | Role | Phone | + [...] RN | obstructive | | | | [place], | | pulmonary disease) | | | | [place] [address] | | (HCC) | | | | [phone] | | | +--------+ + + + [...] | | | | | [place] [address] | | | | | | [phone] | | | | | | | | +--------+---------+ + + + | 04/30/ | Office | Sleep Medicine | Jacky Calderon PA | | | 2019 | Visit | | [address] | | | | | | [place] | | | | | | [address] | | | | | | | | +--------+---------+ + + + documented as of this encounter Visit Diagnoses + + | Diagnosis | + + | COPD (chronic obstructive pulmonary disease) (HCC) Chronic airway obstruction, not | | elsewhere classified | + + documented in this encounter"
--- OUTSIDE RECORDS SUMMARY | ~2020-02-24 | XMS | Encounter Summary ---
Demographics + + + | Address | [address] | | | [place] [address] | + + + | Home Phone [...] Organization | [facility] | | | and [place] | + + + | Address | Unknown | + + + | Phone | Unavailable | + + + Support + + + + + | Name | Relationship | Address | Phone | + + + + + | [employer] | ECON | [id number] | | | | | Unknown | | + + + + + Care Team Providers + +------+ + | Care Reverberatory Furnace Operator Name | Role | Phone | [...] [place] | | | | | | [address] | | | | | | [phone] | | | +--------+ + + + [...] | | | | | [place] [address] | | | | | | [phone] | | | | | | | | +--------+---------+ + + + | 04/30/ | Office | Sleep Medicine | Jacky Calderon PA | | | 2020 | Visit | | [address] | | | | | | [place] | | | | | | [address] | | | | | | | | +--------+---------+ + + + documented as of this encounter Visit Diagnoses Not on filedocumented in this encounter"
--- OUTSIDE RECORDS SUMMARY | ~2020-02-24 | XMS | Encounter Summary ---
Demographics + + + | Address | [address] | | | [place] [address] | + + + | Home Phone [...] | Organization | [facility] | | | and [place] | + + + | Address | Unknown | + + + | Phone | Unavailable | + + + Support + + + + + | Name | Relationship | Address | Phone | + + + + + | [employer] | ECON | [phone] | | | | | Unknown | | + + + + + Care Team Providers + +------+ + | Care Merry Go Round Attendant Name | Role | Phone | [...] | | | | | | [place] [address] | | | | | | [phone] | | | +--------+ + + + [...] | | | | | [place] [address] | | | | | | [phone] | | | | | | | | +--------+---------+ + + + | 04/30/ | Office | Sleep Medicine | Jacky Calderon PA | | | 2020 | Visit | | [address] | | | | | | [place] | | | | | | [address] | | | | | | | [...]
--- OUTSIDE RECORDS SUMMARY | ~2020-02-24 | XMS | Encounter Summary ---
Demographics + + + | Address | [address] | | | [place] [address] | + + + | Home Phone [...] Organization | [facility] | | | and [place]am[place] | + + + | Address | Unknown | + + + | Phone | Unavailable | + + + Support + + + + + | Name | Relationship | Address | Phone | + + + + + | [employer] | ECON | [id number] | | | | | Unknown | | + + + + + Care Team Providers + +------+ + | Care Banking Attorney Name | Role | Phone | + +------+ + | Gela Trimble JUNIOR LOAN PROCESSOR | PCP | | + +------+ + [...] | Primary | [place], | [address] | | | | | pulmonary | Vera B, | [place], | | | | | hypertension | MD [address] | [place] | | | | | (HCC) | [address] | [address] | | | | | Procedures | [place], | Phone: | | | | | ECHO | [place] [address] | [phone] | | | | | Complete | | Fax: | | | | | | | [phone] | +--------+--------+ + + + + Reason [...] | | | Pulmonology | airway | JUNIOR LOAN PROCESSOR [address] | MD [address] | | | | | obstruction, | [address] | [address] | | | | | not | [address] | [place], | | | | | elsewhere | [place], | [place] [address] | | | | | classified | [place] [address] | | | | | | COPD | Phone: | | | | | | Procedures | [phone] | | | | | | 3 MO FOLLOW | Fax: | | | | | | UP | [phone] | | +--------+--------+ + + + + Encounter Details +--------+---------+ + + + | Date | Type | Department | Care Team | Description | +--------+---------+ + + + | 06/11/ | Office | [facility] | [place], | Primary pulmonary | | 2013 | Visit | PULMONARY [address] | Vera Farrar MD | hypertension | | | | [address] [place], | | (Primary Dx); [place] | | | | [place] [address] | | (obstructive sleep | | | | [phone] | | apnea); COPD | | | [...] Years of Education: N/A Occupational History Disabled. [employer] Social History Main Topics Smoking status: Former Smoker -- 1.0 packs/day for 20 years Types: Cigarettes Quit date: 05/14/2013 Smokeless tobacco: None Alcohol Use: Yes Comment: history of abuse Drug Use: Yes Special: Cocaine Comment: history of cocaine use Sexually Active: None Other Topics Concern None Social History Narrative Lives at [facility]. Allergies: Allergies Allergen Reactions Erythromycin Metronidazole Penicillins [...] TABS Take 2,000 Units by mouth Daily. [place] Starch POWD by Does not apply route [...] tablet Take 15 mg by mouth Daily. [place]-3 Fatty Acids (SEA-OMEGA 30) 1200 MG [...] 2 times daily. [DISCONTINUED] Respiratory Therapy Supplies [facility] BIPAP ST rate 8 cm H2O. IPAP 19/EPAP 5 . O2 bleed in at 2 l/m. Lifetime. Dx: 327.23 1 each 0 Respiratory Therapy Supplies [facility] Please contact Dr. Lainez's office if oxygen [...] 8 pounds. Sleep: Using BiPAP and saw Ajcky. No issues. Eyes: Denies vision change and [...] doing well. We will check echocardiogram at [facility] low up appointment in 6 months. Continue [...] made to ensure accuracy; however, inadvertent computerized towel hemmer errors may be pre sent. Electronically signed [...] | | | | | [place] [address] | | | | | | [phone] | | | | | | | | +--------+---------+ + + + | 04/30/ | Office | Sleep Medicine | Jacky Calderon PA | | | 2020 | Visit | | [address] | | | | | | [place] | | | | | | [address] | | | | | | | | +--------+---------+ + + + documented as of this encounter Results ECHO Complete (09/11/2014 10:36 AM PST) + + | Specimen | + + | | + + + + + | Narrative | Performed At | + + + | [facility] ECHOCARDIOGRAM REPORT | [facility] | | STUDY DATE: 09/11/2014 PATIENT NAME: Margarita Rowley : | [facility] | | 1965 PCP: Gela Trimble JUNIOR LOAN PROCESSOR | [facility] | | CLINICAL HISTORY/DIAGNOSIS: [...] | | | Ananth Salguero MD PhD [facility] 09/11/2014 10:45 | | | Lead Driver: Hung Caro, RDCS, RVT, RDMS | | + + + + + | Procedure Note | + + | Roberto Salguero MD - 09/12/2014 9:12 AM [facility] | | CENTERECHOCARDIOGRAM REPORTSTUDY DATE: 09/11/2014PATIENT NAME: Margarita MooreB: | | 1965MRN: [id number]: Gela Trimble, [facility]AGNOSIS: | | Pulmonary hypertensionA transthoracic [...] PP mmHgLA volume: 30 mLLA index: 16 mL/l4Sxepzi Inflow DT: 272 | | msIVRT: 110 msValsalva: Not neededPWDTI S wave: 7.2 cm/sPWDTI E wave: 8.0 cm/sPWDTI | | A wave: 10.4 cm/sE/A Ratio: 0.769E/E Ratio: 10.63Signed by: Artie Salguero MD | | PhD FACC 09/11/2014 10:45 Lead Driver: Hung Caro, RDCS, RVT, RDMS | |Tricuspid [...] | |Signed by: Artie Salguero MD PhD [facility] | | 09/11/2014 10:45 | | | | | |Lead Driver: Hung Caro, RDCS, RVT, RDMS | + + + + + + + | Performing | Address | City/State/Zipcode | Phone Number | | Organization | | | | + + + + + | [facility] | [address] | [place], [place] | [phone] | | [facility] | | [address] | | | - IMAGING | | [...]
--- OUTSIDE RECORDS SUMMARY | ~2020-02-24 | XMS | Encounter Summary ---
Demographics + + + | Address | [address] | | | [place] [address] | + + + | Home Phone [...] + | Organization | [facility] | | | and [place]am[place] | + + + | Address | Unknown | + + + | Phone | Unavailable | + + + Support + + + + + | Name | Relationship | Address | Phone | + + + + + | [employer] | ECON | [phone] | | | | | Unknown | | + + + + + Care Team Providers + +------+ + | Care Licensed Aircraft Maintenance Engineer Name | Role | Phone | [...] | | | | | (HCC) | [address] | AVE | | | | | Procedures | [place], | [place], [place] | | | | | ECHO | [place] [address] | [address] | | | | | Complete [place] | | Phone: | | | | | ECHO HEART | | [phone] | | | | | [place] | | Fax: | | | | | MPLETE W | | [phone] | | | | | DOPPLER [place] [...] | | | Pulmonology | obstructive | EMPLOYEE WELFARE MANAGER [address] | MD | | | | | pulmonary | [place] | | | | | | disease, | [place], | | | | | | unspecified | [place] [address] | | | | | | ([facility]) | Phone: | | | | | | Procedures | [phone] | | | | | | F/U | Fax: | | | | | | | [phone] | | +--------+--------+ + + + + Encounter Details +--------+---------+ + + + | Date | Type | Department | Care Team | Description | +--------+---------+ + + + | 02/02/ | Office | [facility] [address] [facility] | [place], | Primary pulmonary | | 2016 | Visit | PULMONARY [address] | Vera Farrar MD | hypertension (HCC) | | | | [place], | | (Primary Dx); | | | | [place] [address] | | Chronic obstructive | | | | [phone] | | pulmonary disease, | | | [...] Years of Education: N/A Occupational History Disabled. [employer] Social History Main Topics Smoking status: Former Smoker -- 1.00 packs/day for 20 years Types: Cigarettes Quit date: 12/15/2015 Smokeless tobacco: Never Used Alcohol Use: No Drug Use: No Sexual Activity: Not on file Other Topics Concern None Social History Narrative Lives at [facility]. Allergies: Allergies Allergen Reactions Erythromycin Other (See [...] TABS Take 2,000 Units by mouth Daily. [place] Starch POWD by Does not apply route [...] mg onto the skin every 24 hours. [place]-3 Fatty Acids (SEA-OMEGA 30) 1200 MG CAPS [...] appointment with Dr. Rivera. ECHO Complete * [facility] Pulmonary Function Testing - AMB Referral 2. [...] made to ensure accuracy; however, inadvertent computerized measurer machine errors may be pre sent. documented in [...] | | | | | [place] [address] | | | | | | [phone] | | | | | | | | +--------+---------+ + + + | 04/30/ | Office | Sleep Medicine | Jacky Calderon PA | | | 2020 | Visit | | [address] | | | | | | [place] | | | | | | [address] | | | | | | | [...]
--- OUTSIDE RECORDS SUMMARY | ~2020-02-24 | XMS | Encounter Summary ---
Demographics + + + | Address | [address] | | | [place] [address] | + + + | Home Phone [...] Organization | [facility] | | | and [place]am[place] | + + + | Address | Unknown | + + + | Phone | Unavailable | + + + Support + + + + + | Name | Relationship | Address | Phone | + + + + + | [employer] | ECON | [id number] | | | | | Unknown | | + + + + + Care Team Providers + +------+ + | Care Tile Layer Helper Name | Role | Phone | [...] Farrar MD | | | | | [place], | | | | | | [place] [address] | | | | | | [phone] | | | +--------+--------+ + + + [...] | | | | | [place] [address] | | | | | | [phone] | | | | | | | | +--------+---------+ + + + | 04/30/ | Office | Sleep Medicine | Jacky Calderon PA | | | 2019 | Visit | | [address] | | | | | | [place] | | | | | | [address] | | | | | | | [...]
--- OUTSIDE RECORDS SUMMARY | ~2020-02-24 | XMS | Encounter Summary ---
Demographics + + + | Address | [address] | | | [place] [address] | + + + | Home Phone [...] | Organization | [facility] | | | and [place]am[place] | + + + | Address | Unknown | + + + | Phone | Unavailable | + + + Support + + + + + | Name | Relationship | Address | Phone | + + + + + | [employer] | ECON | [phone] | | | | | Unknown | | + + + + + Care Team Providers + +------+ + | Care Head Of English Name | Role | Phone | + [...] | | | | | | [place] [address] | | | | | | [phone] | | | +--------+ + + + [...] | | | | | [place] [address] | | | | | | [phone] | | | | | | | | +--------+---------+ + + + | 04/30/ | Office | Sleep Medicine | Jacky Calderon PA | | | 2019 | Visit | | [address] | | | | | | [place] | | | | | | [address] | | | | | | | [...] eGFR, | 58 (A) | 60 - 874,999 | EXTERNAL | | | External | [...] ST. | [address] | [place], [place] | | | [facility] | | [id number] | | | - LABORATORY | | [...] | [address] | [place] | | | [facility] | | [id number] | | | - LABORATORY | | | | + + + + + documented in this encounter Visit Diagnoses Not on filedocumented in this encounter"
--- OUTSIDE RECORDS SUMMARY | ~2020-02-24 | XMS | Encounter Summary ---
Demographics + + + | Address | [address] | | | [place] [address] | + + + | Home Phone [...] Organization | [facility] | | | and [place]am[place] | + + + | Address | Unknown | + + + | Phone | Unavailable | + + + Support + + + + + | Name | Relationship | Address | Phone | + + + + + | [employer] | ECON | [phone] | | | | | Unknown | | + + + + + Care Team Providers + +------+ + | Care Wild Life Manager Name | Role | Phone | + +------+ + | Yuni Shrestha | PCP | | + +------+ + Encounter Details +--------+ + + + + | Date | Type | Department | Care Team | Description | +--------+ + + + + | 03/20/ | Hospital | [facility] | Conversion | Diagnosis unknown | | 2016 | Encounter | CONVERSION DEP [address] | Transaction, | | | | | [address]IMIE [address]UTIERREZ | Provider Unknown | | | | | [place] | [phone] | | | | | [address] | | | | | | [phone] | | | +--------+ + + + [...] + + + +---------+ + + | Lyerly Starch POWD | by Does not apply [...] | | | | | [place] [address] | | | | | | [phone] | | | | | | | | +--------+---------+ + + + | 04/30/ | Office | Sleep Medicine | Jacky Calderon PA | | | 2019 | Visit | | [address] | | | | | | [place] | | | | | | [address] | | | | | | | | +--------+---------+ + + + documented as of this encounter Visit Diagnoses + + | Diagnosis | + + | Diagnosis unknown Other unknown and unspecified cause of morbidity or mortality | + + documented in this encounter"
--- OUTSIDE RECORDS SUMMARY | ~2020-02-24 | XMS | Encounter Summary ---
Demographics + + + | Address | [address] | | | [place] [address] | + + + | Home Phone [...] | Organization | [facility] | | | and [place]am[place] | + + + | Address | Unknown | + + + | Phone | Unavailable | + + + Support + + + + + | Name | Relationship | Address | Phone | + + + + + | [employer] | ECON | [id number] | | | | | Unknown | | + + + + + Care Team Providers + +------+ + | Care Bull Driver Name | Role | Phone | [...] MD | oximetry) | | | | [place], | | | | | | [place] [address] | | | | | | [phone] | | | +--------+ + + + [...] | | | | | [place] [address] | | | | | | [phone] | | | | | | | | +--------+---------+ + + + | 04/30/ | Office | Sleep Medicine | Jacky Calderon PA | | | 2019 | Visit | | [address] | | | | | | [place] | | | | | | [address] | | | | | | | [...]
--- OUTSIDE RECORDS SUMMARY | ~2020-02-24 | XMS | Encounter Summary ---
Demographics + + + | Address | [address] | | | [place] [address] | + + + | Home Phone [...] [facility] | | | and [place]am[place] | + + + | Address | Unknown | + + + | Phone | Unavailable | + + + Support + + + + + | Name | Relationship | Address | Phone | + + + + + | [employer] | ECON | [id number] | | | | | Unknown | | + + + + + Care Team Providers + +------+ + | Care Environmental Resource Specialist Name | Role | Phone [...] | hypertension (HCC) | | | | [place], | | (Primary Dx); | | | | [place] [address] | | Obstructive sleep | | | | [phone] | | apnea; Hypoxemia; | | | [...] MD [place] Pulmonary and Critical [facility] [address] [place], [address] HPI Margarita Rowley is a 48 y.o. [...] Years of Education: N/A Occupational History Disabled. [employer] Social History Main Topics Smoking status: Former Smoker -- 1.0 packs/day for 20 years Types: Cigarettes Quit date: 05/14/2013 Smokeless tobacco: None Alcohol Use: Yes Comment: history of abuse Drug Use: Yes Special: Cocaine Comment: history of cocaine use Sexually Active: None Other Topics Concern None Social History Narrative Lives at [facility]. Allergies: Allergies Allergen Reactions Erythromycin Metronidazole Penicillins [...] TABS Take 2,000 Units by mouth Daily. [place] Starch POWD by Does not apply route [...] 100 mg by mouth 2 times daily. [place]-3 Fatty Acids (SEA-OMEGA 30) 1200 MG CAPS [...] made to ensure accuracy; however, inadvertent computerized sand tester errors may be pre sent. documented in [...] | | | | | [place] [address] | | | | | | [phone] | | | | | | | | +--------+---------+ + + + | 04/30/ | Office | Sleep Medicine | Jacky Calderon PA | | | 2019 | Visit | | [address] | | | | | | [place] | | | | | | [address] | | | | | | | [...] | [facility] | | | | [facility] | | MEDICAL | | | [...] [address] | [place] | [phone] | | [facility] | | [address] | | | - LABORATORY | | | | + + + + + | [facility] [address] | [address] | [place], [place] | | | [facility] | | [address], [facility] | | [...]
--- OUTSIDE RECORDS SUMMARY | ~2020-02-24 | XMS | Encounter Summary ---
Demographics + + + | Address | [address] | | | [place] [address] | + + + | Home Phone [...] Team Providers + +------+ + | Care Telegraph Lineman Name | Role | Phone | + [...] | | | | | Floor | [place], [place] | | | | | | [place], [place] | [address] | | | | | | [address] | Phone: | | | | | | Phone: | [phone] | | | | | | [phone] | Fax: | | | | | | Fax: | [phone] | | | | | | [phone] | | +--------+--------+ + + + + Encounter Details +--------+ + + + + | Date | Type | Department | Care Team | Description | +--------+ + + + + | 03/27/ | Outside | Neurophysiology | Mustapha Vidal, | | | 2012 | Referral | EEG at [facility] [address] | MD [place] | | | | Order | [facility] | [facility] [address] | | | | | [employer] | KATI AV[employer] | | | | | [place], [address]th Floor | [place] [address] | | | | | [place], [place] | [phone] | | | | | [address] | | | | | | [phone] | | | +--------+ + + + [...] 1965 Medical | | | Record Number: [id number] Date of Test: 03/27/2013 Place of | | | Service: [facility] Department: EEG [facility] [phone] | | | ROUTINE EEG - [facility] Reason for Exam: Evaluate for [...] | Clinical Events: No pushbutton events or hydroelectric production technician notes of unusual | | | [...] Laws M.D. | | | Suggested CPT: 65536 - EEG Routine Awake & Asleep Suggested Dx: | | | 780.39-Convulsions | | + + + documented in this encounter Visit Diagnoses Not on filedocumented in this encounter"
--- OUTSIDE RECORDS SUMMARY | ~2020-02-24 | XMS | Encounter Summary ---
Demographics + + + | Address | [address] | | | [place] [address] | + + + | Home Phone [...] + | Organization | [facility] | | | and [place]am[place] | + + + | Address | Unknown | + + + | Phone | Unavailable | + + + Support + + + + + | Name | Relationship | Address | Phone | + + + + + | [employer] | ECON | [id number] | | | | | Unknown | | + + + + + Care Team Providers + +------+ + | Care Vacuum Cooker Operator Name | Role | Phone | [...] MD | oximetry) | | | | [place], | | | | | | [place] [address] | | | | | | [phone] | | | +--------+ + + + [...] | | | | | [place] [address] | | | | | | [phone] | | | | | | | | +--------+---------+ + + + | 04/30/ | Office | Sleep Medicine | Jacky Calderon PA | | | 2019 | Visit | | [address] | | | | | | [place] | | | | | | [address] | | | | | | | [...]
--- OUTSIDE RECORDS SUMMARY | ~2020-02-24 | XMS | Encounter Summary ---
Demographics + + + | Address | [address] | | | [place] [address] | + + + | Home Phone | | + + + | Preferred Language | Unknown | + + + | Marital Status | Single | + + + | Advent Affiliation | NRP | + + + [...] Team Providers + +------+ + | Care Regulatory Coordinator Name | Role | Phone | + +------+ + | Yuni Shrestha | PCP | | + +------+ + Encounter Details +--------+ + + + + | Date | Type | Department | Care Team | Description | +--------+ + + + + | 05/17/ | Property Manager | Pulmonary & | Oneal Morejon MD | | | 2012 | | Critical Care | [address] | | | | | Medicine at | [facility], | | | | | [facility] | [place] [address] | | | | | [address] | [phone] | | | | | [facility] | | | | | | [place], [address]rd Floor | | | | | | [place], [place] | | | | | | [address] | | | | | | [phone] | | | +--------+ + + + [...]
--- OUTSIDE RECORDS SUMMARY | ~2020-02-24 | XMS | Encounter Summary ---
Demographics + + + | Address | [address] | | | [place] [address] | + + + | Home Phone [...] | Organization | [facility] | | | and Abram[place] | + + + | Address | Unknown | + + + | Phone | Unavailable | + + + Support + + + + + | Name | Relationship | Address | Phone | + + + + + | [employer] | ECON | [phone] | | | | | Unknown | | + + + + + Care Team Providers + +------+ + | Care Extract Mixer Name | Role | Phone | + +------+ + | Gela Trimble NP | PCP | | + +------+ + Encounter Details +--------+ + + + + | Date | Type | Department | Care Team | Description | +--------+ + + + + | 07/30/ | Hospital | [facility] | [place], | | | 2012 | Encounter | MED CTR SLEEP | Vera Farrar MD | | | | | [address] | | | | | | [place] | | | | | | [address] | | | | | | [phone] | | | +--------+ + + + [...] | + + + +---------+--------+ + | [place]-3 Fatty | Take by mouth. | | [...] | | | | | [place] [address] | | | | | | [phone] | | | | | | | [...]
--- OUTSIDE RECORDS SUMMARY | ~2020-02-24 | XMS | Encounter Summary ---
Demographics + + + | Address | [address] | | | [place] [address] | + + + | Home Phone [...] Organization | [facility] | | | and [place]am[place] | + + + | Address | Unknown | + + + | Phone | Unavailable | + + + Support + + + + + | Name | Relationship | Address | Phone | + + + + + | [employer] | ECON | [phone] | | | | | Unknown | | + + + + + Care Team Providers + +------+ + | Care Dimensional Inspector Name | Role | Phone | [...] | Jacky Calderon | | | | Auto Former Machine Operator / | Obstructive | Shanice Paez, | D, PA [address] | | | | Sleep | sleep apnea | [address] | | | | Medicine | (adult) | [place] | [place], | | | | | (pediatric) | [place], | [place] [address] | | | | | 2 mo cpap | [place] | Phone: | | | | | follow up, | [address] | [phone] | | | | | bring | Phone: | Fax: | | | | | equip/AO- | [phone] | [phone] | | | | | new machine | Fax: | | | | | | Procedures | [phone] | | | | | | 05/30 [...] + + | 04/16/ | Office | [facility] | Jacky Calderon PA | Primary central | | 2019 | Visit | SLEEP DISORDER [address] | [address] | sleep apnea (Primary | | | | [address] [place] | [place], [place] | Dx) | | | | [place] [address] | [address] | | | | | [phone] | | | +--------+---------+ + + + [...] visit: 06/14/2018 date of polysomnography: 03/13/2013 at [facility] AHI: 64.2 O2%: n/a Machine type: Respironics DreamStation Auto BiPAP Mask type: ResMed Quattro FX full face mask DME: [facility] [place] pressure: 16/5 cm with backup rate of [...] Assessment: Problem #1: PRIMARY CENTRAL SLEEP APNEA ([id number]) This is controlled with BiPAP and oxygen [...] | | | | | [place] [address] | | | | | | [phone] | | | | | | | | +--------+---------+ + + + | 04/30/ | Office | Sleep Medicine | Jacky Calderon PA | | | 2020 | Visit | | [address] | | | | | | [place] | | | | | | [address] | | | | | | | | +--------+---------+ + + + documented as of this encounter Visit Diagnoses + + | Diagnosis | + + | Primary central sleep apnea - Primary | + + documented in this encounter"
--- OUTSIDE RECORDS SUMMARY | ~2020-02-24 | XMS | Encounter Summary ---
Demographics + + + | Address | [address] | | | [place] [address] | + + + | Home Phone [...] | Organization | [facility] | | | and [place]am[place] | + + + | Address | Unknown | + + + | Phone | Unavailable | + + + Support + + + + + | Name | Relationship | Address | Phone | + + + + + | [employer] | ECON | [id number] | | | | | Unknown | | + + + + + Care Team Providers + +------+ + | Care Pipeline Welder Name | Role | Phone | [...] [place], [place] | | | | | [address] | [address] | | | | | [phone] | [phone] | | | | | | | [...] | | | | | [place] [address] | | | | | | [phone] | | | | | | | [...]
--- OUTSIDE RECORDS SUMMARY | ~2020-02-24 | XMS | Clinical Summary ---
Demographics + + + | Address | [address] | | | [place] [address] | + + + | Home Phone [...] Organization | [facility] | | | and [place] | + + + | Address | Unknown | + + + | Phone | Unavailable | + + + Support + + + + + | Name | Relationship | Address | Phone | + + + + + | Projects Horizon | ECON | [phone] | | | | | Unknown | | + + + + + Care Team Providers + +------+ + | Care Automatic Lathe Operator Name | Role | Phone | [...] Mean [place] | | 63Wedge mean 10Overview: -[facility] 04/2013 [facility]: FindingsBASELINE on 2L | [...] & Plan: -echocardiogram at local | | hospital-[facility]. We will talk by phone with | | the results.-keep up the good work with walking, BIPAP use, | | oxygen use, and no smoking. -continue with your yearly flu | | vaccine.-you should have a f/u appointment with your new | | rod pointer sometime in the next 6 months. -you [...] Walk at next visit. | | Overview: -[facility] 04/2013 [facility]: FindingsBASELINE on 2L O2RA: [...] & Plan: -echocardiogram at local | | hospital-[facility]. We will talk by phone with | | the results.-keep up the good work with walking, BIPAP use, | | oxygen use, and no smoking. -continue with your yearly flu | | vaccine.-you should have a f/u appointment with your new | | rod pointer sometime in the next 6 months. -you [...] |Last Assessment & Plan: | |-echocardiogram at [facility]. We will talk by phone with t he results. | |-keep up the good work with walking, BIPAP use, oxygen use, and no smoking. | |-continue with your yearly flu vaccine. | |-you should have a f/u appointment with your new rod pointer sometime in the next 6 month s. [...] | | | | | [place] [address] | | | | | | [phone] | | | | | | | | +--------+---------+ + + + | 04/30/ | Office | Sleep Medicine | Jacky Calderon PA | | | 2019 | Visit | | [address] | | | | | | [place] | | | | | | [address] | | | | | | | [...] | [employer] | [facility] | [id number] | 04/30/20 | [phone] | | Medica [...] | | al/Kalpesh | | 1965 | [phone] | [place] | | | jammie | | | 5 (Home) | [address] | + +--------+ +--------+ + + Advance Directives + + + + + | Type | Date Recorded | Patient | Explanation | | | | Mess Attendant Crew | | + + + + + | Power of | | | | | Cadastral Engineer | | | | + + + + + | Advance | 03/26/2015 12:35 | | | | Directive | PM | | | + + + + +
--- OUTSIDE RECORDS SUMMARY | ~2020-02-24 | XMS | Encounter Summary ---
Demographics + + + | Address | [address] | | | [place] [address] | + + + | Home Phone [...] | [facility] | | | and [place] | + + + | Address | Unknown | + + + | Phone | Unavailable | + + + Support + + + + + | Name | Relationship | Address | Phone | + + + + + | Projects Horizon | ECON | [phone] | | | | | Unknown | | + + + + + Care Team Providers + +------+ + | Care Material Assistant Name | Role | Phone | [...] [place], [place] | | | | | [address] | [address] | | | | | [phone] | [phone] | | | | | | | [...] | | | | | [place] [address] | | | | | | [phone] | | | | | | | [...]
--- OUTSIDE RECORDS SUMMARY | ~2020-02-24 | XMS | Encounter Summary ---
Demographics + + + | Address | [address] | | | [place] [address] | + + + | Home Phone [...] Organization | [facility] | | | and [place] | + + + | Address | Unknown | + + + | Phone | Unavailable | + + + Support + + + + + | Name | Relationship | Address | Phone | + + + + + | Projects Horizon | ECON | [phone] | | | | | Unknown | | + + + + + Care Team Providers + +------+ + | Care Can Filling And Closing Machine Tender Name | Role | Phone [...] | | | | ABDIRASHID BROTHERS | [place], [place] | | | | | [place] | [address] | | | | | [address] | [phone] | | | | | [phone] | | | +--------+ + + + [...] | | | | | [place] [address] | | | | | | [phone] | | | | | | | | +--------+---------+ + + + | 04/30/ | Office | Sleep Medicine | Jacky Calderon PA | | | 2020 | Visit | | [address] | | | | | | [place] | | | | | | [address] | | | | | | | | +--------+---------+ + + + documented as of this encounter Visit Diagnoses Not on filedocumented in this encounter"
--- OUTSIDE RECORDS SUMMARY | ~2020-02-24 | XMS | Encounter Summary ---
Demographics + + + | Address | [address] | | | [place] [address] | + + + | Home Phone [...] | Organization | [facility] | | | and [place] | + + + | Address | Unknown | + + + | Phone | Unavailable | + + + Support + + + + + | Name | Relationship | Address | Phone | + + + + + | Projects [employer] | ECON | [phone] | | | | | Unknown | | + + + + + Care Team Providers + +------+ + | Care Commercial Ocean Clammer Name | Role | Phone | + [...] | 2018 | | [address]VERSION [address] | PONY CYLINDER PRESS OPERATOR [address] | | | | | [address] | [address] | | | | | [place], [place] | [place] [address] | | | | | [address] | [phone] | | | | | [phone] | | | +--------+ + + + [...] | | | | | [place] [address] | | | | | | [phone] | | | | | | | | +--------+---------+ + + + | 04/30/ | Office | Sleep Medicine | Jacky Calderon PA | | | 2019 | Visit | | [address] | | | | | | [place] | | | | | | [address] | | | | | | | [...] | | | 0.80 m/s MV Dec Eastland: 2.28 m/s2 MV DecT: 328.32 ms MV [...] TR Vmax: 3.20 m/s | | | Scarf And Anneal Operator: JERRI Authenticated by: Vern Boston Report | [...] cmLVPWd: | | 0.71 cmLVOT Area: 2.68 ca2EELB Diam: 1.84 cm%FS: 48.21 %EF(Teich): 79.87 | | %ESV(Teich): 16.84 mlLVIDs: 2.23 cmSV(Teich): 66.85 mlRVIDd: 2.99 cmLVEF MOD | | A4C: 62.52 %SV MOD A4C: 57.86 mlLVEDV MOD A4C: 92.54 mlLVLd A4C: 7.40 cmLVESV | | MOD A4C: 34.68 mlLVLs A4C: 6.14 cmLAESV(A-L): 40.81 mlLAESV Index (A-L): 23.05 | | ml/m2LAAs A2C: 16.03 tx8CMOBE A-L A2C: 43.10 mlLALs A2C: 5.06 cmLAAs A4C: 14.91 | | em4NIJTM A-L A4C: 37.94 mlLALs A4C: 4.97 cmRAAs: 14.88 wq5SMXSY A-L: 41.10 | | mlRAESV MOD: 39.25 mlRALs: 4.57 cmTAPSE: 2.21 cmAV maxP.90 mmHgAV meanPG: | | 6.42 mmHgAV Vmax: 1.72 m/Augustus Vmean: 1.18 m/Augustus VTI: 29.25 cmAVA Vmax: 2.30 | | cm2AVA (VTI): 2.65 qc6NDEC (Vmax): 0.00 cm2/m2AVAI (VTI): 0.00 cm2/m2LVOT maxPG: | | 8.77 mmHgLVOT meanP.18 mmHgLVSI Dopp: 43.93 ml/m2LVSV Dopp: 77.77 mlLVOT | | Vmax: 1.48 m/sLVOT Vmean: 0.92 m/sLVOT VTI: 28.95 cmMV A Royal: 0.80 m/sMV Dec | | Eastland: 2.28 m/s2MV DecT: 328.32 msMV E Royal: 0.75 m/sMV E/A Ratio: 0.93MV PHT: | | 95.21 msMVA By PHT: 2.31 eh9Sfdiai e': 0.04 m/sSeptal E/e': 15.90Lateral e': | | 0.08 m/sLateral E/e': 8.87RAP: 5 mmHgRVSP: 46.05 mmHgTR maxP.05 mmHgTR | | Vmax: 3.20 m/s Scarf And Anneal Operator: JERRIAuthenticated by: Vern Joseph Date/Time: | | [...] A Royal: 0.80 m/s | |MV Dec Eastland: 2.28 m/s2 | |MV DecT: 328.32 ms [...] |TR Vmax: 3.20 m/s | | | |Scarf And Anneal Operator: DBS | |Authenticated by: Vern Boston | [...]
--- OUTSIDE RECORDS SUMMARY | ~2020-02-24 | XMS | Encounter Summary ---
Demographics + + + | Address | [address] | | | [place] [address] | + + + | Home Phone [...] Organization | [facility] | | | and [place] | + + + | Address | Unknown | + + + | Phone | Unavailable | + + + Support + + + + + | Name | Relationship | Address | Phone | + + + + + | [employer] | ECON | [phone] | | | | | Unknown | | + + + + + Care Team Providers + +------+ + | Care Leather Sprayer Name | Role | Phone | + [...] | | | | | | [place] [address] | | | | | | [phone] | | | +--------+ + + + [...] | | | | | [place] [address] | | | | | | [phone] | | | | | | | | +--------+---------+ + + + | 04/30/ | Office | Sleep Medicine | Jacky Calderon PA | | | 2019 | Visit | | [address] | | | | | | [place] | | | | | | [address] | | | | | | | | +--------+---------+ + + + documented as of this encounter Visit Diagnoses Not on filedocumented in this encounter"
--- OUTSIDE RECORDS SUMMARY | ~2020-02-24 | XMS | Encounter Summary ---
Demographics + + + | Address | [address] | | | [place] [address] | + + + | Home Phone [...] Organization | [facility] | | | and [place] | + + + | Address | Unknown | + + + | Phone | Unavailable | + + + Support + + + + + | Name | Relationship | Address | Phone | + + + + + | Projects [employer] | ECON | [id number] | | | | | Unknown | | + + + + + Care Team Providers + +------+ + | Care Cash Analyst Name | Role | Phone | [...] [place] | | | | | | [address] | | | | | | [phone] | | | +--------+ + + + [...] | | | | | [place] [address] | | | | | | [phone] | | | | | | | | +--------+---------+ + + + | 04/30/ | Office | Sleep Medicine | Jacky Calderon PA | | | 2020 | Visit | | [address] | | | | | | [place] | | | | | | [address] | | | | | | | | +--------+---------+ + + + documented as of this encounter Visit Diagnoses Not on filedocumented in this encounter"
--- OUTSIDE RECORDS SUMMARY | ~2020-02-24 | XMS | Encounter Summary ---
Demographics + + + | Address | [address] | | | [place] [address] | + + + | Home Phone [...] Organization | [facility] | | | and [place] | + + + | Address | Unknown | + + + | Phone | Unavailable | + + + Support + + + + + | Name | Relationship | Address | Phone | + + + + + | Projects [employer] | ECON | [phone] | | | | | Unknown | | + + + + + Care Team Providers + +------+ + | Care Sap Solution Manager Consultant Name | Role | Phone | [...] Farrar MD | | | | | [place], | | | | | | [place] [address] | | | | | | [phone] | | | +--------+ + + + [...] | | | | | [place] [address] | | | | | | [phone] | | | | | | | | +--------+---------+ + + + | 04/30/ | Office | Sleep Medicine | Jacky Calderon PA | | | 2019 | Visit | | [address] | | | | | | [place] | | | | | | [address] | | | | | | | | +--------+---------+ + + + documented as of this encounter Visit Diagnoses Not on filedocumented in this encounter"
--- OUTSIDE RECORDS SUMMARY | ~2020-02-24 | XMS | Encounter Summary ---
Demographics + + + | Address | [address] | | | [place] [address] | + + + | Home Phone [...] Organization | [facility] | | | and [place] | + + + | Address | Unknown | + + + | Phone | Unavailable | + + + Support + + + + + | Name | Relationship | Address | Phone | + + + + + | [employer] | ECON | [phone] | | | | | Unknown | | + + + + + Care Team Providers + +------+ + | Care Corporate Receptionist Name | Role | Phone | + +------+ + | Gela Trimble [facility] | PCP | | + +------+ + [...] | Primary | [place], | [address] | | | | | pulmonary | Vera B, | [place], | | | | | hypertension | MD [address] | [place] | | | | | (HCC) | [address] | [address] | | | | | Procedures | [place], | Phone: | | | | | ECHO | [place] [address] | [phone] | | | | | Complete | | Fax: | | | | | | | [phone] | +--------+--------+ + + + + Reason [...] | | | Pulmonology | airway | [facility] [place] [place] [address] | MD [address] | | | | | obstruction, | [address] | [address] | | | | | not | [address] | [place], | | | | | elsewhere | [place], | [place] [address] | | | | | classified | [place] [address] | | | | | | COPD | Phone: | | | | | | Procedures | [phone] | | | | | | 3 [address] FOLLOW | Fax: | | | | | | UP | [phone] | | +--------+--------+ + + + + Encounter Details +--------+---------+ + + + | Date | Type | Department | Care Team | Description | +--------+---------+ + + + | 06/11/ | Office | [facility] | [place], | Primary pulmonary | | 2013 | Visit | PULMONARY [address] | Vera Farrar MD | hypertension | | | | [place], | | (Primary Dx); [place] | | | | [place] [address] | | (obstructive sleep | | | | [phone] | | apnea); COPD | | | [...] [place]) moderate, FEV1 1.40 (59%) Pulmonary hypertension ([facility]) severe, class 1, class 2, class 3 Bipolar disorder (HCC) PTSD (post-traumatic stress disorder) Osteoarthritis Obstructive sleep apnea AHI 64.2 Vitamin D deficiency GERD (gastroesophageal reflux disease) Hypothyroidism Seizure disorder (HCC) Developmental delay Hypoxemia ([facility]) on 2L at rest, 4L with exertion Female stress incontinence Pyelonephritis Hypertension Impulse control disorder Hyperlipidemia Obesity Alcohol abuse Cocaine abuse Past Surgical History Past Surgical History Procedure Date Mouth surgery 2 teeth removed Cardiac catherization Social History: History Social History Marital Status: Single Spouse Name: N/A Number of Children: N/A Years of Education: N/A Occupational History Disabled. [employer] Social History Main Topics Smoking status: Former Smoker -- 1.0 packs/day for 20 years Types: Cigarettes Quit date: 05/14/2013 Smokeless tobacco: None Alcohol Use: Yes Comment: history of abuse Drug Use: Yes Special: Cocaine Comment: history of cocaine use Sexually Active: None Other Topics Concern None Social History Narrative Lives at [facility]. Allergies: Allergies Allergen Reactions Erythromycin Metronidazole Penicillins [...] TABS Take 2,000 Units by mouth Daily. [place] Starch POWD by Does not apply route [...] tablet Take 15 mg by mouth Daily. [place]-3 Fatty Acids (SEA-OMEGA 30) 1200 MG CAPS [...] 2 times daily. [DISCONTINUED] [facility] rate 8 cm H2O. IPAP 19/EPAP 5 . O2 bleed in at 2 l/m. Lifetime. Dx: 327.23 1 each 0 Respiratory Therapy Supplies [facility] Please contact Dr. Lainez's office if [...] doing well. We will check echocardiogram at low up appointment in 6 months. Continue [...] made to ensure accuracy; however, inadvertent computerized professor of early childhood education errors may be pre sent. Electronically signed [...] | | | | | [place] [address] | | | | | | [phone] | | | | | | | | +--------+---------+ + + + | 04/30/ | Office | Sleep Medicine | Jacky Calderon PA | | | 2020 | Visit | | [address] | | | | | | [place] | | | | | | [address] | | | | | | | | +--------+---------+ + + + documented as of this encounter Results ECHO Complete (09/11/2014 10:36 AM PST) + + | Specimen | + + | | + + + + + | Narrative | Performed At | + + + | [facility] ECHOCARDIOGRAM REPORT | [facility] | | STUDY DATE: 09/11/2014 PATIENT NAME: Margarita Rowley : | [facility] | | 1965 PCP: Gela Trimble [facility] | [facility] | | CLINICAL HISTORY/DIAGNOSIS: [...] | | | Ananth Salguero MD PhD [facility] 09/11/2014 10:45 | | | Broomcorn Thresher: Hung Caro, RDCS, RVT, RDMS | | + + + + + | Procedure Note | + + | Roberto Salguero MD - 09/12/2014 9:12 AM [facility] | | CENTERECHOCARDIOGRAM REPORTSTUDY DATE: 09/11/2014PATIENT NAME: Margarita MooreB: | | 1965MRN: [id number]: Gela Trimble, [facility]NOSIS: | | Pulmonary hypertensionA transthoracic [...] PP mmHgLA volume: 30 mLLA index: 16 mL/x9Pfserr Inflow DT: 272 | | msIVRT: 110 msValsalva: Not neededPWDTI S wave: 7.2 cm/sPWDTI E wave: 8.0 cm/sPWDTI | | A wave: 10.4 cm/sE/A Ratio: 0.769E/E Ratio: 10.63Signed by: Artie Salguero MD | | PhD [facility] 09/11/2014 10:45 Broomcorn Thresher: Hung Caro, RDCS, RVT, RDMS | |Tricuspid [...] | |Signed by: Artie Salguero MD PhD [facility] | | 09/11/2014 10:45 | | | | | |Broomcorn Thresher: Hung Caro, RDCS, RVT, RDMS | + + + + + + + | Performing | Address | City/State/Zipcode | Phone Number | | Organization | | | | + + + + + | [facility] | [address] | [place], [place] | [phone] | | [facility] | | [address] | | | - IMAGING | | [...]
--- OUTSIDE RECORDS SUMMARY | ~2020-02-24 | XMS | Encounter Summary ---
Demographics + + + | Address | [address] | | | [place] [address] | + + + | Home Phone [...] | Organization | [facility] | | | and [place] | + + + | Address | Unknown | + + + | Phone | Unavailable | + + + Support + + + + + | Name | Relationship | Address | Phone | + + + + + | [employer] | ECON | [phone] | | | | | Unknown | | + + + + + Care Team Providers + +------+ + | Care Green House Manager Name | Role | Phone | [...] MD | increase) | | | | [place], | | | | | | [place] [address] | | | | | | [phone] | | | +--------+ + + + [...] | | | | | [place] [address] | | | | | | [phone] | | | | | | | | +--------+---------+ + + + | 04/30/ | Office | Sleep Medicine | Jacky Calderon PA | | | 2019 | Visit | | [address] | | | | | | [place] | | | | | | [address] | | | | | | | | +--------+---------+ + + + documented as of this encounter Visit Diagnoses Not on filedocumented in this encounter"
[~2020-02-24 16:36] MED LIST changes: +BUDESONIDE-FO10.2 G1 INH; +FUROSEMIDE40 MG PO; +LEVOTHYROXINE125 MCG PO; +MONTELUKAST SOD10 MG PO; +PAROXETINE HCL40 MG PO; +RISPERDAL0.5 MG PO; +RISPERIDONE0.5 MG PO
--- OUTSIDE RECORDS SUMMARY | 2020-02-24 16:38 | XMS ---
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 No recent Security Events currently on file CRITERIA MET - [facility] - Has Care Guidelines - [facility] - 2 Visits in 30 Days CARE PROVIDERS CLAUDIA TALBOT Nurse Practitioner: Family 07/19/2016-Current PHONE: Unknown ZOFIA MCCALLUM Internal Medicine: Pulmonary Disease 01/29/2020-Current PHONE: Unknown Guidelines Source: [facility] Guidelines Date: 05/29/2019 Care Coordination: Receives mental health services with [facility].\T\nbsp; Please contact [facility] for mental health concerns.\T\nbsp; [place]/René Rios:\T\nbsp; [phone]\T\nbsp; Gal: [phone]. Care History Medical/Surgical 01/29/2020 [facility] Patient admitted. 01/29/2020 [facility] - Patient is currently established with [facility]. If patient is seen in the ED during business hours. Please contact [facility] at [facility]. Care Recommendation: If this patient has had 5 or more Emergency Department visits in the last 12 months.\T\nbsp; Patient will require education on the scope and purpose of the ED as an acute care provider not a Primary Care Provider and should not be utilized for chronic conditions.\T\nbsp; These are guidelines and the provider should exercise clinical judgment when providing care. E.D. VISIT COUNT (12 MO.) 3 [facility] TOTAL 3 NOTE: Visits indicate total known visits. ED/UCC VISIT TRACKING (12 MO.) 02/24/2020 16:36 [facility] [place] TYPE: Emergency COMPLAINT: - SOB 01/28/2020 08:49 [facility] [place] TYPE: Emergency COMPLAINT: - FEVER, COUGH 05/28/2019 12:52 [facility] [place] TYPE: Emergency COMPLAINT: - NOSE BLEED DIAGNOSES: - Allergy to other foods - alf (current) use of aspirin - Heart failure, unspecified - Allergy status to other anti-infective agents status - Bipolar disorder, unspecified - Allergy status to sulfonamides status - Other nursing home (current) drug therapy - Allergy status to other antibiotic agents status - Gastro-esophageal reflux disease without esophagitis - Hypertensive heart disease with heart failure - Epistaxis - Allergy status to penicillin - Chronic obstructive pulmonary disease, unspecified INPATIENT VISIT TRACKING (12 MO.) 02/01/2020 20:19 [facility] [place] TYPE: Medical Surgical DIAGNOSES: - Unspecified atrial fibrillation - Primary pulmonary hypertension - Right heart failure, unspecified - Overactive bladder - Morbid (severe) obesity due to excess calories - Other secondary pulmonary hypertension - Acute and chronic respiratory failure with hypoxia - Pulmonary HTN - Obstructive sleep apnea (adult) (pediatric) - Hypoxemia 01/28/2020 11:[address] [facility] [place] TYPE: Critical Care COMPLAINT: - RESPIRATORY FAILURE DIAGNOSES: - Chronic obstructive pulmonary disease with acute lower respir - Allergy status to other antibiotic agents status - Chronic pain syndrome - Primary pulmonary hypertension - Acute respiratory distress syndrome - Do not resuscitate - Hypo-osmolality and hyponatremia - Thrombocytopenia, unspecified - Bipolar disorder, unspecified - Do not resuscitate - Urgency of urination - Hypothyroidism, unspecified - Allergy status to penicillin - Allergy status to other antibiotic agents status - Chronic obstructive pulmonary disease with acute lower respir - Gastro-esophageal reflux disease without esophagitis - Viral pneumonia, unspecified - Urgency of urination - Bipolar disorder, unspecified - Thrombocytopenia, unspecified - alf (current) use of aspirin - Acute respiratory failure with hypoxia - Allergy status to penicillin - Other nursing home (current) drug therapy - Allergy status to sulfonamides status - long term (current) use of non-steroidal anti-inflammatories - long term (current) use of non-steroidal anti-inflammatories - Viral pneumonia, unspecified - Gastro-esophageal reflux disease without esophagitis - Allergy status to sulfonamides status - Hypothyroidism, unspecified - Acute respiratory distress syndrome - Hyperlipidemia, unspecified - Other nursing home (current) drug therapy - Chronic pain syndrome - Hyperlipidemia, unspecified - Hypo-osmolality and hyponatremia - alf (current) use of aspirin - Primary pulmonary hypertension [email or web address]
--- NOTE | 2020-02-24 20:45 | EKG ---
[facility] [address] [facility] [place] [address] Signed Normal sinus rhythm Left axis deviation Nonspecific T wave abnormality Abnormal ECG When compared with ECG of 01-FEB-2020 13:20, Inverted T waves have replaced nonspecific T wave abnormality in Anterior leads Confirmed by SHAHZAD MONACO MD ([id number]) on 02/24/2020 8:45:37 PM Electronically Signed By: SHAHZAD MONACO MD 02/24/20 2045 PATIENT NAME: KEO BARRAZA Electrocardiogram DATE OF : 61 PHYSICIAN: SHAHZAD MONACO MD REPORT #: [id number] REPORT IS CONFIDENTIAL AND NOT TO BE RELEASED WITHOUT AUTHORIZATION
== END 2020-02-24 19:23 | disposition home or self-care (01) ==
LOC: ED 16:36
DX: J44.9 Chronic obstructive pulmonary disease, unspecified (principal); I50.9 Heart failure, unspecified; E03.9 Hypothyroidism, unspecified; I10 Essential (primary) hypertension; Z87.891 Personal history of nicotine dependence; Z79.899 Other long term (current) drug therapy
CPT/HCPCS: 51701; 71045; 71260; 80053; 81001; 83605; 83735; 83880; 84484; 85025; 93005; 93010; 99285-25; Q9967

== ENCOUNTER 2020-03-24 20:30 | Emergency (ER) | payer OTHER ==
[~2020-03-24] VITALS: Ht 157.5 cm; Wt 93.5 kg
--- OUTSIDE RECORDS SUMMARY | ~2020-03-24 | XMS | Encounter Summary ---
Demographics + + + | Address | [address] | | | [place] [address] | + + + | Home Phone | | + + + | Preferred Language | Unknown | + + + | Marital Status | Single | + + + | Hindu Affiliation | NRP | + + + | Race | White | + + + | Ethnic Group | Not or | + + + Author + + + | Author | [facility] | + + + | Organization | [facility] | + + + | Address | Unknown | + + + | Phone | Unavailable | + + + Support + + +---------+ + | Name | Relationship | Address | Phone | + + +---------+ + | Lidia Thibodeaux | ECON | Unknown | | + + +---------+ + Care Team Providers + +------+ + | Care Mill Work Name | Role | Phone | + +------+ + | Yuni Shrestha | PCP | | + +------+ + Encounter Details +--------+ + + + + | Date | Type | Department | Care Team | Description | +--------+ + + + + | 12/06/ | Ancillary | [facility] | | | | 2006 | Registratio | Practice [address] | | | | | n | [facility] | | | | | | [place] [address] | | | | | | [phone] | | | +--------+ + + + + Social History + +-------+ +--------+------+ | Tobacco Use | Types | Packs/Day | Years | Date | | | | | Used | | + +-------+ +--------+------+ | Never Assessed | | | | | + +-------+ +--------+------+ + + + | Sex Assigned at [...] as of this encounter Plan of Treatment Not on filedocumented as of this encounter Visit Diagnoses Not on filedocumented in this encounter"
--- OUTSIDE RECORDS SUMMARY | ~2020-03-24 | XMS | Encounter Summary ---
Demographics + + + | Address | [address] | | | [place] [address] | + + + | Home Phone | | + + + | Preferred Language | Unknown | + + + | Marital Status | Single | + + + | Denominational Affiliation | [id number] | + + + | Race | Unknown | + + + | Ethnic Group | Unknown | + + + Author + + + | Author | [facility] | | | and [place] | + + + | Organization | [facility] | | | and [place] | + + + | Address | Unknown | + + + | Phone | Unavailable | + + + Support + + + + + | Name | Relationship | Address | Phone | + + + + + | [employer] | ECON | [id number] | | | | | Unknown | | + + + + + Care Team Providers + +------+ + | Care Waiter/Waitress Name | Role | Phone | + +------+ + PCP | Unavailable | + +------+ + Encounter Details +--------+ + + + + | Date | Type | Department | Care Team | Description | +--------+ + + + + | 07/22/ | Hospital | [facility] | Karel Dailey | | | 2008 | Encounter | HOSPITAL EMERGENCY | MD [address] | | | | | CENTER [address] | [facility] | | | | | [address] [place] | [place] [address] | | | | | [address] | [phone] | | | | | [phone] | | | +--------+ + + + [...] | | | | | [place] [address] | | | | | | [phone] | | | | | | | | +--------+---------+ + + + | 04/30/ | Office | Sleep Medicine | Jacky Calderon PA | | | 2020 | Visit | | [address] | | | | | | [place] | | | | | | [phone] | | | | | | | | +--------+---------+ + + + documented as of this encounter Visit Diagnoses Not on filedocumented in this encounter"
--- OUTSIDE RECORDS SUMMARY | ~2020-03-24 | XMS | Encounter Summary ---
Demographics + + + | Address | [address] | | | [place] [address] | + + + | Home Phone | | + + + | Preferred Language | Unknown | + + + | Marital Status | Single | + + + | Mosque Affiliation | 1009 | + + + | Race | Unknown | + + + | Ethnic Group | Unknown | + + + Author + + + | Author | [facility] | | | and [place] | + + + | Organization | [facility] | | | and [place] | + + + | Address | Unknown | + + + | Phone | Unavailable | + + + Support + + + + + | Name | Relationship | Address | Phone | + + + + + | [employer] | ECON | [id number] | | | | | Unknown | | + + + + + Care Team Providers + +------+ + | Care Materials Technician Name | Role | Phone | + +------+ + | Yuni Shrestha | PCP | | + +------+ + Reason for Visit +--------+ + | Reason | Comments | +--------+ + | Apnea | | +--------+ + Encounter Details +--------+---------+ + + + | Date | Type | Department | Care Team | Description | +--------+---------+ + + + | 05/22/ | Office | [facility] | Jacky Calderon PA | Primary central | | 2015 | Visit | SLEEP DISORDER [address] | [address] | sleep apnea (Primary | | | | [address] | [place] | Dx) | | | | [place] [address] | [address] | | | | | [phone] | | | +--------+---------+ + + + Social History + + + +--------+ + | Tobacco Use | Types | Packs/Day | Years | Date | | | | | Used | | + + + +--------+ + | Current Some Day | Cigarettes | 1 | 20 | Quit: 12/10/2014 | | Smoker | | | | | + + + +--------+ + + + | Comments: restarted in August [...] + + + | Blood Pressure | 122/62 | 05/22/2015 3:36 PM | | | | | PDT | | + + + + + | Pulse | 84 | 05/22/2015 3:36 PM | | | | | PDT | | + + + + + | Temperature | - | - | | + + + + + | Respiratory Rate | 16 | 05/22/2015 3:36 PM | | | | | PDT | | + + + + + | Oxygen Saturation | - | - | | + + + + + | Inhaled Oxygen | - | - | | | Concentration | | | | + + + + + | Weight | 93.6 kg (206 lb 6.4 | 05/22/2015 3:36 PM | | | | oz) | PDT | | + + + + + | Height | - | - | | + + + + + | Body Mass Index | 41.67 | 03/12/2015 9:44 AM | | | | | PDT | | + + + + + documented in this encounter Progress Notes Jacky Calderon PA - 05/22/2015 3:31 PM PDT Subjective: Patient ID: Margarita Rowley is a 49 y.o. female. HPI last office visit was: 05/21/2014 date of polysomnography: 03/13/2013 at [facility] AHI: 64.2 O2%: n/a Machine type: Respironics BiPAP Auto with ResMed Quattro FX full face mask obtained from: [employer] in [place] pressure: 16/5 cm with backup rate of 8 bpm and O2 at 5 L/min Nights using BiPAP: 180/180 average usage (all nights): 7:17 average usage (nights used): 7:17 AHI: 5.5 Jessie comes in for BiPAP compliance. She continues to do well with her compliance. She is sleeping very well and does not consider sleeping without it. She does not have any questio ns or concerns. I have discussed the download in detail. This shows that her sleep apnea is controlled, wi th an AHI of 5.5. It also shows that her leaks are controlled. Review of Systems Objective: Physical Exam Assessment: Problem #1: CENTRAL SLEEP APNEA (327.21) This is controlled with BiPAP at the adjusted pressures. Her compliance is going very well . Plan: She is to continue with BiPAP indefinitely. She is to touch base with her medical supplier twice per year to ensure that her equipment is satisfactory. I will follow up with her in 1 year, sooner prn. Fifteen minutes were spent [id number], with the majority of time spent in counseling. Jacky Calderon PA-C cc: BRUCE Beal MD documented in this enco unter Plan of Treatment +--------+---------+ + + + | Date | Type | Specialty | Care Team | Description | +--------+---------+ + + + | 04/16/ | Office | Pulmonology | Helen Astudillo | | | 2019 | Visit | | MD Vikash [address] | | | | | [address] [place] | | | | | | [place] [address] | | | | | | [phone] | | | | | | | | +--------+---------+ + + + | 04/30/ | Office | Sleep Medicine | Jacky Calderon PA | | | 2019 | Visit | | [address] | | | | | | [place] | | | | | | [phone] | | | | | | | | +--------+---------+ + + + documented as of this encounter Visit Diagnoses + + | Diagnosis | + + | Primary central sleep apnea - Primary | + + documented in this encounter"
--- OUTSIDE RECORDS SUMMARY | ~2020-03-24 | XMS | Encounter Summary ---
Demographics + + + | Address | [address] | | | [place] [address] | + + + | Home Phone | | + + + | Preferred Language | Unknown | + + + | Marital Status | Single | + + + | Restorationist Affiliation | 1009 | + + + | Race | Unknown | + + + | Ethnic Group | Unknown | + + + Author + + + | Author | [facility] | | | and [place] | + + + | Organization | [facility] | | | and [place] | + + + | Address | Unknown | + + + | Phone | Unavailable | + + + Support + + + + + | Name | Relationship | Address | Phone | + + + + + | [employer] | ECON | [id number] | | | | | Unknown | | + + + + + Care Team Providers + +------+ + | Care Retirement Officer Name | Role | Phone | + +------+ + | Shanice Huang MD | PCP | | + +------+ + Encounter Details +--------+ + + + + | Date | Type | Department | Care Team | Description | +--------+ + + + + | 06/27/ | Orders Only | [facility] | Modesta Cruz, | | | 2018 | | CONVERSION [address] | WORKERS' COMPENSATION CLAIMS EXAMINER [address] | | | | | [address] | [address] | | | | | [place], [place] | [place] [address] | | | | | [address] | [phone] | | | | | [phone] | | | +--------+ + + + [...] | | | | | [place] [address] | | | | | | [phone] | | | | | | | | +--------+---------+ + + + | 04/30/ | Office | Sleep Medicine | Jacky Calderon PA | | | 2019 | Visit | | [address] | | | | | | [place] | | | | | | [address] | | | | | | | | +--------+---------+ + + + documented as of this encounter Procedures + +--------+ + + + | Procedure Name | Priori | Date/Time | Associated Diagnosis | Comments | | | ty | | | | + +--------+ + + + | ECHO INTERPRETATION | Routin | 06/27/2018 | | Results for this | | OF OUTSIDE FILMS | e | 1:06 PM | | procedure are in the | | | | PDT | | results section. | + +--------+ + + + documented in this encounter Results ECHO Interpretation of Outside Films (06/27/2018 1:06 PM PDT) + + | Specimen | + + | | + + + + + | Impressions | Performed At | + + + | 1. The left ventricle is normal in size, wall thickness and systolic | | | function EF 65-70%. 2. The right ventricle is moderately enlarged | | | with normal systolic function. 3. Mild tricuspid regurgitation and | | | mild pulmonary hypertension. 4. There is no pericardial effusion. 5. | | | Compared with the findings of the prior study, the estimated | | | pulmonary artery pressure has decreased. | | + + + + + + | Narrative | Performed At | + + + | Patient Name: Margarita Rowley Date of : 1965 | | | Performing Physician: Vern Boston | | | | | | INDICATIONS PULMONARY HTN CONCLUSIONS | | | 1. The left ventricle is normal in size, wall thickness and systolic | | | function EF 65-70%. 2. The right ventricle is moderately enlarged | | | with normal systolic function. 3. Mild tricuspid regurgitation and | | | mild pulmonary hypertension. 4. There is no pericardial effusion. 5. | | | Compared with the findings of the prior study, the estimated | | | pulmonary artery pressure has decreased. FINDINGS -------- ECG | | | rhythm: Sinus rhythm. Study: A 2-dimensional transthoracic | | | echocardiogram with m-mode, spectral and color flow Doppler was | | | perfomed. Study: This was a technically adequate study. Left | | | Ventricle: Overall left ventricular systolic function is normal with, | | | an EF between 65 - 70 %. Left Ventricle: The left ventricle cavity | | | size is normal. Left Ventricle: Left ventricular wall thickness is | | | normal. Left Ventricle: The diastolic filling pattern is normal for | | | the age of the patient. Right Ventricle: The right ventricle is | | | moderately enlarged measuring between 3.8 - 4.1 cm. Right Ventricle: | | | The right ventricular systolic function is normal. Left Atrium: The | | | left atrium is normal in size. Right Atrium: The right atrium is | | | normal in size. Aortic Valve: There is no evidence of aortic | | | regurgitation. Aortic Valve: There is no evidence of aortic stenosis. | | | Aortic Valve: The aortic valve is trileaflet and appears | | | structurally normal. Mitral Valve: Normal appearing mitral valve. | | | Mitral Valve: Mild mitral regurgitation is present. Tricuspid Valve: | | | The tricuspid valve appears structurally normal. Tricuspid Valve: | | | Mild tricuspid regurgitation present. Tricuspid Valve: There is mild | | | pulmonary hypertension. Tricuspid Valve: The right ventricular | | | systolic pressure (pulmonary artery systolic pressure), as measured by | | | Doppler, is 46.05mmHg. Pulmonic Valve: Pulmonic valve appears | | | structurally normal. Pulmonic Valve: No pulmonic valve regurgitation | | | observed. Pericardium: There is no pericardial effusion. | | | Pericardium: No pleural effusion seen. IVC/Hepatic Veins: The | | | inferior vena cava is normal in size and collapses > 50 % with sniff, | | | indicating normal central venous pressures. Aorta: The aortic root, | | | ascending aorta and aortic arch are normal in size. General comments: | | | Compared with the findings of the prior study, the estimated | | | pulmonary artery pressure has decreased. MEASUREMENTS | | | Ao asc: 2.14 cm Ao sinus: 3.[address] junct: | | | 2.12 cm IVC: 1.68 cm LA Diam: 3.38 cm EDV(Teich): 83.69 | | | ml IVSd: 0.87 cm LVIDd: 4.31 cm LVPWd: 0.71 cm LVOT | | | Area: 2.68 cm2 LVOT Diam: 1.84 cm %FS: 48.21 % EF(Teich): | | | 79.87 % ESV(Teich): 16.84 ml LVIDs: 2.23 cm SV(Teich): | | | 66.85 ml RVIDd: 2.99 cm LVEF MOD A4C: 62.52 % SV MOD A4C: | | | 57.86 ml LVEDV MOD A4C: 92.54 ml LVLd A4C: 7.40 cm LVESV MOD | | | A4C: 34.68 ml LVLs A4C: 6.14 cm LAESV(A-L): 40.81 ml LAESV | | | Index (A-L): 23.05 ml/m2 LAAs A2C: 16.03 cm2 LAESV A-L A2C: | | | 43.10 ml LALs A2C: 5.06 cm LAAs A4C: 14.91 cm2 LAESV A-L | | | A4C: 37.94 ml LALs A4C: 4.97 cm RAAs: 14.88 cm2 RAESV A-L: | | | 41.10 ml RAESV MOD: 39.25 ml RALs: 4.57 cm TAPSE: 2.21 | | | cm AV maxP.90 mmHg AV meanP.42 mmHg AV Vmax: | | | 1.72 m/s AV Vmean: 1.18 m/s AV VTI: 29.25 cm SONU Vmax: | | | 2.30 cm2 SONU (VTI): 2.65 cm2 AVAI (Vmax): 0.00 cm2/m2 AVAI | | | (VTI): 0.00 cm2/m2 LVOT maxP.77 mmHg LVOT meanP.18 | | | mmHg LVSI Dopp: 43.93 ml/m2 LVSV Dopp: 77.77 ml LVOT Vmax: | | | 1.48 m/s LVOT Vmean: 0.92 m/s LVOT VTI: 28.95 cm MV A Royal: | | | 0.80 m/s MV Dec Snyder: 2.28 m/s2 MV DecT: 328.32 ms MV E | | | Royal: 0.75 m/s MV E/A Ratio: 0.93 MV PHT: 95.21 ms MVA By | | | PHT: 2.31 cm2 Septal e': 0.04 m/s Septal E/e': 15.90 | | | Lateral e': 0.08 m/s Lateral E/e': 8.87 RAP: 5 mmHg RVSP: | | | 46.05 mmHg TR maxP.05 mmHg TR Vmax: 3.20 m/s | | | Buffet Runner: JERRI Authenticated by: Vern Boston Report | | | Date/Time: 06-30-2018 5:55:36 | | + + + + + | Procedure Note | + + | Gabriel Zafar Conversion - 06/21/2019 4:07 PM PDT Patient Name: Julia Rowley of | | : 1965 Performing Physician: Vern | | Ket[place] INDICATIONS------ | | -----PULMONARY HTN CONCLUSIONS 1. The left ventricle is normal in size, wall | | thickness and systolic function EF 65-70%.2. The right ventricle is moderately enlarged | | with normal systolic function.3. Mild tricuspid regurgitation and mild pulmonary | | hypertension.4. There is no pericardial effusion.5. Compared with the findings of the | | prior study, the estimated pulmonary artery pressure has decreased. FINDINGS--------ECG | | rhythm: Sinus rhythm.Study: A 2-dimensional transthoracic echocardiogram with m-mode, | | spectral and color flow Doppler was perfomed.Study: This was a technically adequate | | study.Left Ventricle: Overall left ventricular systolic function is normal with, an EF | | between 65 - 70 %.Left Ventricle: The left ventricle cavity size is normal.Left | | Ventricle: Left ventricular wall thickness is normal.Left Ventricle: The diastolic | | filling pattern is normal for the age of the patient.Right Ventricle: The right | | ventricle is moderately enlarged measuring between 3.8 - 4.1 cm.Right Ventricle: The | | right ventricular systolic function is normal.Left Atrium: The left atrium is normal in | | size.Right Atrium: The right atrium is normal in size.Aortic Valve: There is no evidence | | of aortic regurgitation.Aortic Valve: There is no evidence of aortic stenosis.Aortic | | Valve: The aortic valve is trileaflet and appears structurally normal.Mitral Valve: | | Normal appearing mitral valve.Mitral Valve: Mild mitral regurgitation is | | present.Tricuspid Valve: The tricuspid valve appears structurally normal.Tricuspid | | Valve: Mild tricuspid regurgitation present.Tricuspid Valve: There is mild pulmonary | | hypertension.Tricuspid Valve: The right ventricular systolic pressure (pulmonary artery | | systolic pressure), as measured by Doppler, is 46.05mmHg.Pulmonic Valve: Pulmonic valve | | appears structurally normal.Pulmonic Valve: No pulmonic valve regurgitation | | observed.Pericardium: There is no pericardial effusion.Pericardium: No pleural effusion | | seen.IVC/Hepatic Veins: The inferior vena cava is normal in size and collapses > 50 % | | with sniff, indicating normal central venous pressures.Aorta: The aortic root, ascending | | aorta and aortic arch are normal in size.General comments: Compared with the findings | | of the prior study, the estimated pulmonary artery pressure has decreased. | | MEASUREMENTS Ao asc: 2.14 cmAo sinus: 3.[address] junct: 2.12 cmIVC: | | 1.68 cmLA Diam: 3.38 cmEDV(Teich): 83.69 mlIVSd: 0.87 cmLVIDd: 4.31 cmLVPWd: | | 0.71 cmLVOT Area: 2.68 pm6YHNV Diam: 1.84 cm%FS: 48.21 %EF(Teich): 79.87 | | %ESV(Teich): 16.84 mlLVIDs: 2.23 cmSV(Teich): 66.85 mlRVIDd: 2.99 cmLVEF MOD | | A4C: 62.52 %SV MOD A4C: 57.86 mlLVEDV MOD A4C: 92.54 mlLVLd A4C: 7.40 cmLVESV | | MOD A4C: 34.68 mlLVLs A4C: 6.14 cmLAESV(A-L): 40.81 mlLAESV Index (A-L): 23.05 | | ml/m2LAAs A2C: 16.03 [id number] A-L A2C: 43.10 mlLALs A2C: 5.06 cmLAAs A4C: 14.91 | | [id number] A-L A4C: 37.94 mlLALs A4C: 4.97 cmRAAs: 14.88 [id number] A-L: 41.10 | | mlRAESV MOD: 39.25 mlRALs: 4.57 cmTAPSE: 2.21 cmAV maxP.90 mmHgAV meanPG: | | 6.42 mmHgAV Vmax: 1.72 m/Augustus Vmean: 1.18 m/Augustus VTI: 29.25 cmAVA Vmax: 2.30 | | cm2AVA (VTI): 2.65 pu6DFUP (Vmax): 0.00 cm2/m2AVAI (VTI): 0.00 cm2/m2LVOT maxPG: | | 8.77 mmHgLVOT meanP.18 mmHgLVSI Dopp: 43.93 ml/m2LVSV Dopp: 77.77 mlLVOT | | Vmax: 1.48 m/sLVOT Vmean: 0.92 m/sLVOT VTI: 28.95 cmMV A Royal: 0.80 m/sMV Dec | | Snyder: 2.28 m/s2MV DecT: 328.32 msMV E Royal: 0.75 m/sMV E/A Ratio: 0.93MV PHT: | | 95.21 msMVA By PHT: 2.31 zl2Vffdbb e': 0.04 m/sSeptal E/e': 15.90Lateral e': | | 0.08 m/sLateral E/e': 8.87RAP: 5 mmHgRVSP: 46.05 mmHgTR maxP.05 mmHgTR | | Vmax: 3.20 m/s Buffet Runner: JERRIAuthenticated by: Vern Joseph Date/Time: | | 06-30-2018 5:55:36 IMPRESSION: 1. The left ventricle is normal in size, wall thickness | | and systolic function EF 65-70%.2. The right ventricle is moderately enlarged with | | normal systolic function.3. Mild tricuspid regurgitation and mild pulmonary | | hypertension.4. There is no pericardial effusion.5. Compared with the findings of the | | prior study, the estimated pulmonary artery pressure has decreased. | |Ao asc: 2.14 cm | |Ao sinus: 3.08 cm | |Ao st junct: 2.12 cm | |IVC: 1.68 cm | |LA Diam: 3.38 cm | |EDV(Teich): 83.69 ml | |IVSd: 0.87 cm | |LVIDd: 4.31 cm | |LVPWd: 0.71 cm | |LVOT Area: 2.68 cm2 | |LVOT Diam: 1.84 cm | |%FS: 48.21 % | |EF(Teich): 79.87 % | |ESV(Teich): 16.84 ml | |LVIDs: 2.23 cm | |SV(Teich): 66.85 ml | |RVIDd: 2.99 cm | |LVEF MOD A4C: 62.52 % | |SV MOD A4C: 57.86 ml | |LVEDV MOD A4C: 92.54 ml | |LVLd A4C: 7.40 cm | |LVESV MOD A4C: 34.68 ml | |LVLs A4C: 6.14 cm | |LAESV(A-L): 40.81 ml | |LAESV Index (A-L): 23.05 ml/m2 | |LAAs A2C: 16.03 cm2 | |LAESV A-L A2C: 43.10 ml | |LALs A2C: 5.06 cm | |LAAs A4C: 14.91 cm2 | |LAESV A-L A4C: 37.94 ml | |LALs A4C: 4.97 cm | |RAAs: 14.88 cm2 | |RAESV A-L: 41.10 ml | |RAESV MOD: 39.25 ml | |RALs: 4.57 cm | |TAPSE: 2.21 cm | |AV maxP.90 mmHg | |AV meanP.42 mmHg | |AV Vmax: 1.72 m/s | |AV Vmean: 1.18 m/s | |AV VTI: 29.25 cm | |SONU Vmax: 2.30 cm2 | |SONU (VTI): 2.65 cm2 | |AVAI (Vmax): 0.00 cm2/m2 | |AVAI (VTI): 0.00 cm2/m2 | |LVOT maxP.77 mmHg | |LVOT meanP.18 mmHg | |LVSI Dopp: 43.93 ml/m2 | |LVSV Dopp: 77.77 ml | |LVOT Vmax: 1.48 m/s | |LVOT Vmean: 0.92 m/s | |LVOT VTI: 28.95 cm | |MV A Royal: 0.80 m/s | |MV Dec Snyder: 2.28 m/s2 | |MV DecT: 328.32 ms | |MV E Royal: 0.75 m/s | |MV E/A Ratio: 0.93 | |MV PHT: 95.21 ms | |MVA By PHT: 2.31 cm2 | |Septal e': 0.04 m/s | |Septal E/e': 15.90 | |Lateral e': 0.08 m/s | |Lateral E/e': 8.87 | |RAP: 5 mmHg | |RVSP: 46.05 mmHg | |TR maxP.05 mmHg | |TR Vmax: 3.20 m/s | | | |Buffet Runner: DBS | |Authenticated by: Vern Boston | |Report Date/Time: 06-30-2018 5:55:36 | | | |IMPRESSION: | |1. The left ventricle is normal in size, wall thickness and systolic function EF 65-70%. | |2. The right ventricle is moderately enlarged with normal systolic function. | |3. Mild tricuspid regurgitation and mild pulmonary hypertension. | |4. There is no pericardial effusion. | |5. Compared with the findings of the prior study, the estimated pulmonary artery pressure h as decreased. | + + documented in this encounter Visit Diagnoses Not on filedocumented in this encounter"
--- OUTSIDE RECORDS SUMMARY | ~2020-03-24 | XMS | Encounter Summary ---
Demographics + + + | Address | [address] | | | [place] [address] | + + + | Home Phone | | + + + | Preferred Language | Unknown | + + + | Marital Status | Single | + + + | Cheondoism Affiliation | 1009 | + + + | Race | Unknown | + + + | Ethnic Group | Unknown | + + + Author + + + | Author | [facility] | | | and [place] | + + + | Organization | [facility] | | | and [place] | + + + | Address | Unknown | + + + | Phone | Unavailable | + + + Support + + + + + | Name | Relationship | Address | Phone | + + + + + | [employer] | ECON | [id number] | | | | | Unknown | | + + + + + Care Team Providers + +------+ + | Care Electrical And Instrument Technician Name | Role | Phone | + +------+ + PCP | Unavailable | + +------+ + Encounter Details +--------+ + + + + | Date | Type | Department | Care Team | Description | +--------+ + + + + | 01/02/ | Hospital | [facility] | Conversion | | | 2009 | Encounter | [facility] | Transaction, | | | | | CENTER [address] | Provider Unknown | | | | | [address] [place], [place] | | | | | | [address] | (Fax) | | | | | [phone] | | | +--------+ + + + [...] | | | | | [place] [address] | | | | | | [phone] | | | | | | | | +--------+---------+ + + + | 04/30/ | Office | Sleep Medicine | Jacky Calderon PA | | | 2020 | Visit | | [address] | | | | | | [place] | | | | | | [address] | | | | | | | | +--------+---------+ + + + documented as of this encounter Visit Diagnoses Not on filedocumented in this encounter"
--- OUTSIDE RECORDS SUMMARY | ~2020-03-24 | XMS | Encounter Summary ---
Demographics + + + | Address | [address] | | | [place] [address] | + + + | Home Phone | | + + + | Preferred Language | Unknown | + + + | Marital Status | Single | + + + | Pentecostalism Affiliation | 1009 | + + + | Race | Unknown | + + + | Ethnic Group | Unknown | + + + Author + + + | Author | [facility] | | | and [place] | + + + | Organization | [facility] | | | and [place] | + + + | Address | Unknown | + + + | Phone | Unavailable | + + + Support + + + + + | Name | Relationship | Address | Phone | + + + + + | [employer] | ECON | [id number] | | | | | Unknown | | + + + + + Care Team Providers + +------+ + | Care Roadmaster Name | Role | Phone | + +------+ + | Yuni Shrestha | PCP | | + +------+ + Encounter Details +--------+ + + + + | Date | Type | Department | Care Team | Description | +--------+ + + + + | 01/04/ | Orders Only | [facility] [place] | [facility], | Dysphagia | | 2016 | | GASTROENTEROLOGY | BRITTANY Maddox [address] | | | | | [address] [place] | [place] | | | | | [address] [place], [place] | [place], [place] | | | | | [address] | [address] | | | | | [phone] | | | +--------+ + + + [...] | | | | | [place] [address] | | | | | | [phone] | | | | | | | | +--------+---------+ + + + | 04/30/ | Office | Sleep Medicine | Jacky Calderon PA | | | 2019 | Visit | | [address] | | | | | | [place] | | | | | | [address] | | | | | | | | +--------+---------+ + + + documented as of this encounter Visit Diagnoses + + | Diagnosis | + + | Dysphagia Dysphagia, unspecified | + + documented in this encounter"
--- OUTSIDE RECORDS SUMMARY | ~2020-03-24 | XMS | Encounter Summary ---
Demographics + + + | Address | [address] | | | [place] [address] | + + + | Home Phone | | + + + | Preferred Language | Unknown | + + + | Marital Status | Single | + + + | Sabianism Affiliation | 1009 | + + + | Race | Unknown | + + + | Ethnic Group | Unknown | + + + Author + + + | Author | [facility] | | | and [place] | + + + | Organization | [facility] | | | and [place] | + + + | Address | Unknown | + + + | Phone | Unavailable | + + + Support + + + + + | Name | Relationship | Address | Phone | + + + + + | [employer] | ECON | [id number] | | | | | Unknown | | + + + + + Care Team Providers + +------+ + | Care Oil Mixer Name | Role | Phone | + [...] | Primary | [place], | [address] | | | | | pulmonary | Vera B, | [place], | | | | | hypertension | MD [address] | [place] | | | | | ([facility]) | [address] | [address] | | | | | Procedures | [place], | Phone: | | | | | ECHO | [place] [address] | [phone] | | | | | Complete [place] | | Fax: | | | | | ECHO [facility]ART | | [phone] | | | | | [place] | | | | | | | MPLETE W | | | | | | | [place]OPPL[place] | | | | | | | [...] | Primary | Off[place], | [address] | | | | | pulmonary | Vera B, | [place], | | | | | hypertension | MD [address] | [place] | | | | | ([facility]) | [address] | [address] | | | | | Procedures | [place], | Phone: | | | | | ECHO | [place] [address] | [phone] | | | | | Complete [place] | | Fax: | | | | | ECHO HEART | | [phone] | | | | | [place]AC[place] | | | | | | | MPLETE [place] | | | | | | | [place]OPPL[place] | | | | | | | [...] + + | 03/26/ | Hospital | [facility] | [place], | Primary pulmonary | | 2014 | Encounter | [facility] [address] | Vera Farrar MD | hypertension | | | | [place] | Maciel Silva, | | | | | [place] [address] | Technologist | | | | | [phone] | | | +--------+ + + + [...] + + + +---------+ + + | [place] [facility] POWD | by Does not apply [...] + + + +---------+ + + | Isabel-3 Fatty | Take by mouth. | | [...] | | | | | [address] [place] | | | | | | [place] [address] | | | | | | [phone] | | | | | | | | +--------+---------+ + + + | 04/30/ | Office | Sleep Medicine | Jacky Calderon PA | | | 2019 | Visit | | [address] | | | | | | [place] | | | | | | [address] | | | | | | | [...] Performed At | + + + | [facility] ECHOCARDIOGRAM REPORT | [place] | | STUDY DATE: 03/26/2015 PATIENT NAME: Margarita Rowley : | [facility] | | 1965 PCP: Physician Elisabeth CLINICAL | [facility] | | HISTORY/DIAGNOSIS: Pulmonary HTN A transthoracic [...] Signed by: Derick Strong, | | | [facility] 03/26/2015 13:52 Plate Grainer: Maciel [place], | | | RDCS, RDMS, RVT | | + + + + + + + + | Performing | Address | City/State/Zipcode | Phone Number | | Organization | | | | + + + + + | [facility] | [address] | [place], [place] | [phone] | | [facility] | | [address] | | | - IMAGING | | [...]
--- OUTSIDE RECORDS SUMMARY | ~2020-03-24 | XMS | Encounter Summary ---
Demographics + + + | Address | [address] | | | [place] [address] | + + + | Home Phone | | + + + | Preferred Language | Unknown | + + + | Marital Status | Single | + + + | Moravian Affiliation | 1009 | + + + | Race | Unknown | + + + | Ethnic Group | Unknown | + + + Author + + + | Author | [facility] | | | and [place] | + + + | Organization | [facility] | | | and [place] | + + + | Address | Unknown | + + + | Phone | Unavailable | + + + Support + + + + + | Name | Relationship | Address | Phone | + + + + + | [employer] | ECON | [id number] | | | | | Unknown | | + + + + + Care Team Providers + +------+ + | Care Chart Collector Name | Role | Phone | + +------+ + | Gela Trimble NP | PCP | | + +------+ + Reason for Visit +--------+ + | Reason | Comments | +--------+ + | Other | pt to ER | +--------+ + Encounter Details +--------+ + + + + | Date | Type | Department | Care Team | Description | +--------+ + + + + | 05/01/ | Telephone | [facility] [place] | [place], | Other (pt to ER) | | 2013 | | PULMONARY [address] | Vera Farrar MD | | | | | [place], | | | | | | [place] [address] | | | | | | [phone] | | | +--------+ + + + [...] | | | | | [place] [address] | | | | | | [phone] | | | | | | | | +--------+---------+ + + + | 04/30/ | Office | Sleep Medicine | Jacky Calderon PA | | | 2019 | Visit | | [address] | | | | | | [place] | | | | | | [address] | | | | | | | | +--------+---------+ + + + documented as of this encounter Visit Diagnoses Not on filedocumented in this encounter"
--- OUTSIDE RECORDS SUMMARY | ~2020-03-24 | XMS | Encounter Summary ---
Demographics + + + | Address | [address] | | | [place] [address] | + + + | Home Phone | | + + + | Preferred Language | Unknown | + + + | Marital Status | Single | + + + | Adventism Affiliation | 1009 | + + + | Race | Unknown | + + + | Ethnic Group | Unknown | + + + Author + + + | Author | [facility] | | | and [place] | + + + | Organization | [facility] | | | and [place] | + + + | Address | Unknown | + + + | Phone | Unavailable | + + + Support + + + + + | Name | Relationship | Address | Phone | + + + + + | [employer] | ECON | [id number] | | | | | Unknown | | + + + + + Care Team Providers + +------+ + | Care Bodily Injury Adjuster Name | Role | Phone | + +------+ + | Gela Trimble NP | PCP | | + +------+ + Encounter Details +--------+ + + + + | Date | Type | Department | Care Team | Description | +--------+ + + + + | 12/17/ | Abstract | [facility] [place] | [place], | | | 2014 | | PULMONARY [address] | Vera Farrar MD | | | | | [place], | | | | | | [place] [address] | | | | | | [phone] | | | +--------+ + + + + Social History + + + +--------+ + | Tobacco Use | Types | Packs/Day | Years | Date | | | | | Used | | + + + +--------+ + | Former Smoker | Cigarettes | 1 | 20 | Quit: 12/10/2014 | + + + +--------+ + + + | Comments: restarted in August 2014, quit again 12/10/14 | + + + + +---------+ + [...] | | | | | [place] [address] | | | | | | [phone] | | | | | | | | +--------+---------+ + + + | 04/30/ | Office | Sleep Medicine | Jacky Calderon PA | | | 2019 | Visit | | [address] | | | | | | [place] | | | | | | [address] | | | | | | | | +--------+---------+ + + + documented as of this encounter Procedures + +--------+ + + + | Procedure Name | Priori | Date/Time | Associated Diagnosis | Comments | | | ty | | | | + +--------+ + + + | EXTERNAL LAB: PTT | Routin | 10/07/2014 | | Results for this | | | e | 1:29 PM | | procedure are in the | | | | PST | | results section. | + +--------+ + + + | EXTERNAL LAB: BUN | Routin | 10/07/2014 | | Results for this | | | e | 1:29 PM | | procedure are in the | | | | PST | | results section. | + +--------+ + + + | EXTERNAL LAB: | Routin | 10/07/2014 | | Results for this | | GLUCOSE | e | 1:29 PM | | procedure are in the | | | | PST | | results section. | + +--------+ + + + | EXTERNAL LAB: ANTWANMB | Routin | 10/07/2014 | | Results for this | | | e | 1:29 PM | | procedure are in the | | | | PST | | results section. | + +--------+ + + + | EXTERNAL LAB: ANTWAN | Routin | 10/07/2014 | | Results for this | | TOTAL | e | 1:29 PM | | procedure are in the | | | | PST | | results section. | + +--------+ + + + | EXTERNAL LAB: | Routin | 10/07/2014 | | Results for this | | TROPONIN T | e | 1:29 PM | | procedure are in the | | | | PST | | results section. | + +--------+ + + + | EXTERNAL LAB: ALT | Routin | 10/07/2014 | | Results for this | | | e | 1:29 PM | | procedure are in the | | | | PST | | results section. | + +--------+ + + + | EXTERNAL LAB: AST | Routin | 10/07/2014 | | Results for this | | | e | 1:29 PM | | procedure are in the | | | | PST | | results section. | + +--------+ + + + | EXTERNAL LAB: | Routin | 10/07/2014 | | Results for this | | ALKALINE PHOSPHATASE | e | 1:29 PM | | procedure are in the | | | | PST | | results section. | + +--------+ + + + | EXTERNAL LAB: | Routin | 10/07/2014 | | Results for this | | BILIRUBIN, TOTAL | e | 1:29 PM | | procedure are in the | | | | PST | | results section. | + +--------+ + + + | EXTERNAL LAB: | Routin | 10/07/2014 | | Results for this | | ALBUMIN | e | 1:29 PM | | procedure are in the | | | | PST | | results section. | + +--------+ + + + | EXTERNAL LAB: | Routin | 10/07/2014 | | Results for this | | PROTEIN, TOTAL | e | 1:29 PM | | procedure are in the | | | | PST | | results section. | + +--------+ + + + | EXTERNAL LAB: | Routin | 10/07/2014 | | Results for this | | MAGNESIUM | e | 1:29 PM | | procedure are in the | | | | PST | | results section. | + +--------+ + + + | EXTERNAL LAB: | Routin | 10/07/2014 | | Results for this | | CALCIUM | e | 1:29 PM | | procedure are in the | | | | PST | | results section. | + +--------+ + + + | EXTERNAL LAB: CARBON | Routin | 10/07/2014 | | Results for this | | DIOXIDE | e | 1:29 PM | | procedure are in the | | | | PST | | results section. | + +--------+ + + + | EXTERNAL LAB: | Routin | 10/07/2014 | | Results for this | | CHLORIDE | e | 1:29 PM | | procedure are in the | | | | PST | | results section. | + +--------+ + + + | EXTERNAL LAB: | Routin | 10/07/2014 | | Results for this | | POTASSIUM | e | 1:29 PM | | procedure are in the | | | | PST | | results section. | + +--------+ + + + | EXTERNAL LAB: SODIUM | Routin | 10/07/2014 | | Results for this | | | e | 1:29 PM | | procedure are in the | | | | PST | | results section. | + +--------+ + + + | EXTERNAL LAB: CBC | Routin | 10/07/2014 | | Results for this | | | e | 1:29 PM | | procedure are in the | | | | PST | | results section. | + +--------+ + + + | EXTERNAL LAB: | Routin | 10/07/2014 | | Results for this | | PROTIME INR | e | 1:29 PM | | procedure are in the | | | | PST | | results section. | + +--------+ + + + | EXTERNAL LAB: Charan MILLER | Routin | 10/07/2014 | | Results for this | | NATURETIC PEPTIDE | e | 1:29 PM | | procedure are in the | | | | PST | | results section. | + +--------+ + + + | EXTERNAL LAB: EGFR | Routin | 10/07/2014 | | Results for this | | | e | 1:29 PM | | procedure are in the | | | | PST | | results section. | + +--------+ + + + | EXTERNAL LAB: | Routin | 10/07/2014 | | Results for this | | CREATININE | e | 1:29 PM | | procedure are in the | | | | PST | | results section. | + +--------+ + + + | RULE OUT MYOCARDIAL | Routin | 10/07/2014 | | Results for this | | INFARCTION | e | 1:20 PM | | procedure are in the | | | | PST | | results section. | + +--------+ + + + | CBC WITH | Routin | 10/07/2014 | | Results for this | | DIFFERENTIAL | e | 1:20 PM | | procedure are in the | | | | PST | | results section. | + +--------+ + + + | COMPREHENSIVE | Routin | 10/07/2014 | | Results for this | | METABOLIC PANEL | e | 1:20 PM | | procedure are in the | | | | PST | | results section. | + +--------+ + + + documented in this encounter Results External Lab: PTT (10/07/2014 1:29 PM PST) + +-------+ + + + | Component | Value | Ref Range | Performed | Pathologist | | | | | At | Signature | + +-------+ + + + | PTT, | 31.1 | 22.9 - 41.3 | EXTERNAL | | | External | | | LAB | | + +-------+ + + + + + | Resulting Agency Comment | + + | [facility] | + + + +---------+ + + | Performing | Address | City/State/Zipcode | Phone Number | | Organization | | | | + +---------+ + + | EXTERNAL LAB | | | | + +---------+ + + External Lab: EDSON (10/07/2014 1:29 PM PST) + +-------+ + + + | Component | Value | Ref Range | Performed | Pathologist | | | | | At | Signature | + +-------+ + + + | BUN, | 23 | 6 - 23 | EXTERNAL | | | External | | | LAB | | + +-------+ + + + + + | Resulting Agency Comment | + + | [facility] | + + + +---------+ + + | Performing | Address | City/State/Zipcode | Phone Number | | Organization | | | | + +---------+ + + | EXTERNAL LAB | | | | + +---------+ + + External Lab: Glucose (10/07/2014 1:29 PM PST) + +-------+ + + + | Component | Value | Ref Range | Performed | Pathologist | | | | | At | Signature | + +-------+ + + + | Glucose, | 93 | 70 - 100 | EXTERNAL | | | External | | | LAB | | + +-------+ + + + + + | Resulting Agency Comment | + + | [facility] | + + + +---------+ + + | Performing | Address | City/State/Zipcode | Phone Number | | Organization | | | | + +---------+ + + | EXTERNAL LAB | | | | + +---------+ + + External Lab: CKMB (10/07/2014 1:29 PM PST) + +-------+ + + + | Component | Value | Ref Range | Performed | Pathologist | | | | | At | Signature | + +-------+ + + + | CKMB, | 2.12 | 0 - 2.88 | EXTERNAL | | | Total, | | | LAB | | | External | | | | | + +-------+ + + + + + | Resulting Agency Comment | + + | [facility] | + + + +---------+ + + | Performing | Address | City/State/Zipcode | Phone Number | | Organization | | | | + +---------+ + + | EXTERNAL LAB | | | | + +---------+ + + External Lab: Ck, Total (10/07/2014 1:29 PM PST) + +-------+ + + + | Component | Value | Ref Range | Performed | Pathologist | | | | | At | Signature | + +-------+ + + + | CK, Total, | 32 | 24 - 170 | EXTERNAL | | | External | | | LAB | | + +-------+ + + + + + | Resulting Agency Comment | + + | [facility] | + + + +---------+ + + | Performing | Address | City/State/Zipcode | Phone Number | | Organization | | | | + +---------+ + + | EXTERNAL LAB | | | | + +---------+ + + External Lab: Troponin T (10/07/2014 1:29 PM PST) + +-------+ + + + | Component | Value | Ref Range | Performed | Pathologist | | | | | At | Signature | + +-------+ + + + | Troponin T, | 0.010 | 0.01 | EXTERNAL | | | External | | | LAB | | + +-------+ + + + + + | Resulting Agency Comment | + + | [facility] | + + + +---------+ + + | Performing | Address | City/State/Zipcode | Phone Number | | Organization | | | | + +---------+ + + | EXTERNAL LAB | | | | + +---------+ + + External Lab: ALT (10/07/2014 1:29 PM PST) + +-------+ + + + | Component | Value | Ref Range | Performed | Pathologist | | | | | At | Signature | + +-------+ + + + | ALT, | 14 | 7 - 52 | EXTERNAL | | | External | | | LAB | | + +-------+ + + + + + | Resulting Agency Comment | + + | [facility] | + + + +---------+ + + | Performing | Address | City/State/Zipcode | Phone Number | | Organization | | | | + +---------+ + + | EXTERNAL LAB | | | | + +---------+ + + External Lab: AST (10/07/2014 1:29 PM PST) + +-------+ + + + | Component | Value | Ref Range | Performed | Pathologist | | | | | At | Signature | + +-------+ + + + | AST, | 15 | 13 - 39 | EXTERNAL | | | External | | | LAB | | + +-------+ + + + + + | Resulting Agency Comment | + + | [facility] | + + + +---------+ + + | Performing | Address | City/State/Zipcode | Phone Number | | Organization | | | | + +---------+ + + | EXTERNAL LAB | | | | + +---------+ + + External Lab: Alkaline Phosphatase (10/07/2014 1:29 PM PST) + +-------+ + + + | Component | Value | Ref Range | Performed | Pathologist | | | | | At | Signature | + +-------+ + + + | ALP, | 61 | 30 - 128 | EXTERNAL | | | External | | | LAB | | + +-------+ + + + + + | Resulting Agency Comment | + + | [facility] | + + + +---------+ + + | Performing | Address | City/State/Zipcode | Phone Number | | Organization | | | | + +---------+ + + | EXTERNAL LAB | | | | + +---------+ + + External Lab: Bilirubin, Total (10/07/2014 1:29 PM PST) + +-------+ + + + | Component | Value | Ref Range | Performed | Pathologist | | | | | At | Signature | + +-------+ + + + | Bilirubin, | 0.3 | 0 - 1.2 | EXTERNAL | | | Total, | | | LAB | | | External | | | | | + +-------+ + + + + + | Resulting Agency Comment | + + | [facility] | + + + +---------+ + + | Performing | Address | City/State/Zipcode | Phone Number | | Organization | | | | + +---------+ + + | EXTERNAL LAB | | | | + +---------+ + + External Lab: Albumin (10/07/2014 1:29 PM PST) + +-------+ + + + | Component | Value | Ref Range | Performed | Pathologist | | | | | At | Signature | + +-------+ + + + | Albumin, | 3.7 | 3.5 - 5 | EXTERNAL | | | External | | | LAB | | + +-------+ + + + + + | Resulting Agency Comment | + + | [facility] | + + + +---------+ + + | Performing | Address | City/State/Zipcode | Phone Number | | Organization | | | | + +---------+ + + | EXTERNAL LAB | | | | + +---------+ + + External Lab: Protein, Total (10/07/2014 1:29 PM PST) + +-------+ + + + | Component | Value | Ref Range | Performed | Pathologist | | | | | At | Signature | + +-------+ + + + | Protein, | 6.6 | 6 - 83 | EXTERNAL | | | Total, | | | LAB | | | External | | | | | + +-------+ + + + + + | Resulting Agency Comment | + + | [facility] | + + + +---------+ + + | Performing | Address | City/State/Zipcode | Phone Number | | Organization | | | | + +---------+ + + | EXTERNAL LAB | | | | + +---------+ + + External Lab: Magnesium (10/07/2014 1:29 PM PST) + +-------+ + + + | Component | Value | Ref Range | Performed | Pathologist | | | | | At | Signature | + +-------+ + + + | Magnesium, | 2.2 | 1.7 - 2.5 | EXTERNAL | | | External | | | LAB | | + +-------+ + + + + + | Resulting Agency Comment | + + | [facility] | + + + +---------+ + + | Performing | Address | City/State/Zipcode | Phone Number | | Organization | | | | + +---------+ + + | EXTERNAL LAB | | | | + +---------+ + + External Lab: Calcium (10/07/2014 1:29 PM PST) + +-------+ + + + | Component | Value | Ref Range | Performed | Pathologist | | | | | At | Signature | + +-------+ + + + | Calcium, | 9.0 | 8.4 - 10.2 | EXTERNAL | | | External | | | LAB | | + +-------+ + + + + + | Resulting Agency Comment | + + | [facility] | + + + +---------+ + + | Performing | Address | City/State/Zipcode | Phone Number | | Organization | | | | + +---------+ + + | EXTERNAL LAB | | | | + +---------+ + + External Lab: Carbon Dioxide (10/07/2014 1:29 PM PST) + +-------+ + + + | Component | Value | Ref Range | Performed | Pathologist | | | | | At | Signature | + +-------+ + + + | Carbon | 26 | 19 - 31 | EXTERNAL | | | Dioxide, | | | LAB | | | External | | | | | + +-------+ + + + + + | Resulting Agency Comment | + + | [facility] | + + + +---------+ + + | Performing | Address | City/State/Zipcode | Phone Number | | Organization | | | | + +---------+ + + | EXTERNAL LAB | | | | + +---------+ + + External Lab: Chloride (10/07/2014 1:29 PM PST) + +-------+ + + + | Component | Value | Ref Range | Performed | Pathologist | | | | | At | Signature | + +-------+ + + + | Chloride, | 103 | 95 - 112 | EXTERNAL | | | External | | | LAB | | + +-------+ + + + + + | Resulting Agency Comment | + + | [facility] | + + + +---------+ + + | Performing | Address | City/State/Zipcode | Phone Number | | Organization | | | | + +---------+ + + | EXTERNAL LAB | | | | + +---------+ + + External Lab: Potassium (10/07/2014 1:29 PM PST) + +-------+ + + + | Component | Value | Ref Range | Performed | Pathologist | | | | | At | Signature | + +-------+ + + + | Potassium, | 3.8 | 3.6 - 5.1 | EXTERNAL | | | External | | | LAB | | + +-------+ + + + + + | Resulting Agency Comment | + + | [facility] | + + + +---------+ + + | Performing | Address | City/State/Zipcode | Phone Number | | Organization | | | | + +---------+ + + | EXTERNAL LAB | | | | + +---------+ + + External Lab: Sodium (10/07/2014 1:29 PM PST) + +-------+ + + + | Component | Value | Ref Range | Performed | Pathologist | | | | | At | Signature | + +-------+ + + + | Sodium, | 137 | 132 - 143 | EXTERNAL | | | External | | | LAB | | + +-------+ + + + + + | Resulting Agency Comment | + + | [facility] | + + + +---------+ + + | Performing | Address | City/State/Zipcode | Phone Number | | Organization | | | | + +---------+ + + | EXTERNAL LAB | | | | + +---------+ + + External Lab: CBC (10/07/2014 1:29 PM PST) + + + + + + | Component | Value | Ref Range | Performed | Pathologist | | | | | At | Signature | + + + + + + | WBC, | 6.0 | 4.5 - 11 | EXTERNAL | | | External | | | LAB | | + + + + + + | HGB, | 12.1 | 12 - 16 | EXTERNAL | | | External | | | LAB | | + + + + + + | HCT, | 37.4 | 35 - 45 | EXTERNAL | | | External | | | LAB | | + + + + + + | PLT, | 138 (A) | 140 - 440 | EXTERNAL | | | External | | | LAB | | + + + + + + | Neutrophils | 62.6 | 39 - 80 | EXTERNAL | | | %, | | | LAB | | | External | | | | | + + + + + + | Lymphocytes | 22.4 (A) | 24 - 44 | EXTERNAL | | | %, | | | LAB | | | External | | | | | + + + + + + | Monocytes | 12.1 (A) | 0 - 12 | EXTERNAL | | | %, External | | | LAB | | + + + + + + | Eosinophils | 1.7 | 0 - 6 | EXTERNAL | | | %, | | | LAB | | | External | | | | | + + + + + + | RBC, | 3.95 | 3.8 - 5.1 | EXTERNAL | | | External | | | LAB | | + + + + + + | MCV, | 94 | 81 - 99 | EXTERNAL | | | External | | | LAB | | + + + + + + | RDW, | 12.9 | 10.5 - 15 | EXTERNAL | | | External | | | LAB | | + + + + + + + + | Resulting Agency Comment | + + | [facility] | + + + +---------+ + + | Performing | Address | City/State/Zipcode | Phone Number | | Organization | | | | + +---------+ + + | EXTERNAL LAB | | | | + +---------+ + + External Lab: Protime INR (10/07/2014 1:29 PM PST) + +-------+ + + + | Component | Value | Ref Range | Performed | Pathologist | | | | | At | Signature | + +-------+ + + + | INR, | 1.0 | | EXTERNAL | | | External | | | LAB | | + +-------+ + + + | PT, | 13.4 | | EXTERNAL | | | External | | | LAB | | + +-------+ + + + + + | Specimen | + + | Blood specimen | | (specimen) | + + + + | Resulting Agency Comment | + + | [facility] | + + + +---------+ + + | Performing | Address | City/State/Zipcode | Phone Number | | Organization | | | | + +---------+ + + | EXTERNAL LAB | | | | + +---------+ + + External Lab: B Type Naturetic Peptide (10/07/2014 1:29 PM PST) + +-------+ + + + | Component | Value | Ref Range | Performed | Pathologist | | | | | At | Signature | + +-------+ + + + | B-Type | 6 | 0 - 100 | EXTERNAL | | | Naturetic | | | LAB | | | Peptide, | | | | | | External | | | | | + +-------+ + + + + + | Specimen | + + | Blood specimen | | (specimen) | + + + + | Resulting Agency Comment | + + | [facility] | + + + +---------+ + + | Performing | Address | City/State/Zipcode | Phone Number | | Organization | | | | + +---------+ + + | EXTERNAL LAB | | | | + +---------+ + + External Lab: eGFR (10/07/2014 1:29 PM PST) + +--------+ + + + | Component | Value | Ref Range | Performed | Pathologist | | | | | At | Signature | + +--------+ + + + | eGFR, | 58 (A) | 60 - 629,999 | EXTERNAL | | | External | | | LAB | | + +--------+ + + + + + | Specimen | + + | Blood specimen | | (specimen) | + + + + | Resulting Agency Comment | + + | [facility] | + + + +---------+ + + | Performing | Address | City/State/Zipcode | Phone Number | | Organization | | | | + +---------+ + + | EXTERNAL LAB | | | | + +---------+ + + External Lab: Creatinine (10/07/2014 1:29 PM PST) + +-------+ + + + | Component | Value | Ref Range | Performed | Pathologist | | | | | At | Signature | + +-------+ + + + | Creatinine, | 1.01 | 0.7 - 1.33 | EXTERNAL | | | External | | | LAB | | + +-------+ + + + + + | Specimen | + + | Blood specimen | | (specimen) | + + + + | Resulting Agency Comment | + + | [facility] | + + + +---------+ + + | Performing | Address | City/State/Zipcode | Phone Number | | Organization | | | | + +---------+ + + | EXTERNAL LAB | | | | + +---------+ + + Rule Out Myocardial (10/07/2014 1:20 PM PST) + +-------+ + + + | Component | Value | Ref Range | Performed | Pathologist | | | | | At | Signature | + +-------+ + + + | MYOGLOBIN | 35 | ng/mL | [facility] | | | | | | [facility] | | | | | | [facility] | | | | | [facility] - | | | | | | LABORATORY | | + +-------+ + + + + + | Specimen | + + | Blood specimen | | (specimen) | + + + + + + + | Performing | Address | City/State/Zipcode | Phone Number | | Organization | | | | + + + + + | [facility] | [address] | [place], [place] | | | [facility] | | [id number] | | | - LABORATORY | | | | + + + + + CBC with Differential (10/07/2014 1:20 PM PST) + +-------+ + + + | Component | Value | Ref Range | Performed | Pathologist | | | | | At | Signature | + +-------+ + + + | MCH | 31.0 | pg | | | + +-------+ + + + | MCHC | 32.0 | % | | | + +-------+ + + + | % Basophils | 1.2 | % | | | + +-------+ + + + + + | Specimen | + + | Blood specimen | | (specimen) | + + Comprehensive Metabolic Panel (10/07/2014 1:20 PM PST) + +-------+ + + + | Component | Value | Ref Range | Performed | Pathologist | | | | | At | Signature | + +-------+ + + + | Anion Gap | 12 | mmol/L | [facility] | | | | | | [facility] | | | | | | [facility] | | | | | | [facility] - | | | | | | LABORATORY | | + +-------+ + + + | BUN/Creatin | 22.8 | | [facility] | | | ine Ratio | | | [facility] | | | | | | [facility] | | | | | | [facility] - | | | | | | LABORATORY | | + +-------+ + + + | Globulin | 2.9 | | [facility] | | | | | | [facility] | | | | | | [facility] | | | | | | [facility] - | | | | | | LABORATORY | | + +-------+ + + + | Albumin/Clarice | 1.3 | | [facility] | | | bulin Ratio | | | [facility] | | | | | | [facility] | | | | | | [facility] - | | | | | | LABORATORY | | + +-------+ + + + + + | Specimen | + + | Blood specimen | | (specimen) | + + + + + + + | Performing | Address | City/State/Zipcode | Phone Number | | Organization | | | | + + + + + | [facility] | [address] | [place] | | | [facility] | | [id number] [[email or web address] | | | - LABORATORY | | | | + + + + + documented in this encounter Visit Diagnoses Not on filedocumented in this encounter"
--- OUTSIDE RECORDS SUMMARY | ~2020-03-24 | XMS | Encounter Summary ---
Demographics + + + | Address | [address] | | | [place] [address] | + + + | Home Phone | | + + + | Preferred Language | Unknown | + + + | Marital Status | Single | + + + | Muslim Affiliation | NRP | + + + | Race | White | + + + | Ethnic Group | Not or | + + + Author + + + | Author | [facility] | + + + | Organization | [facility] | + + + | Address | Unknown | + + + | Phone | Unavailable | + + + Support + + +---------+ + | Name | Relationship | Address | Phone | + + +---------+ + | Lidia Thibodeaux | ECON | Unknown | | + + +---------+ + Care Team Providers + +------+ + | Care Wedger Name | Role | Phone | + +------+ + | Gela Trimble CUSTOM TAILOR APPRENTICE | PCP | | + +------+ + Reason for Referral Consultation (Routine) +--------+--------+ + + + + | Status | Reason | Specialty | Diagnoses / | Referred By | Referred To | | | | | Procedures | Contact | Contact | +--------+--------+ + + + + | Closed | | Pulmonary | Diagnoses | Lydia, | Lis, | | | | Disease | Dyspnea | Cristine Otoole MD | MD Alexander | | | | | Other | [address] | [address] | | | | | chronic | Zach | [address] | | | | | pulmonary | [address] | [place], | | | | | heart | [place], [place] | [place] | | | | | diseases | [address] | [address] | | | | | Procedures | Phone: | Phone: | | | | | CONSULT TO | [phone] | [phone] | | | | | PULMONARY | Fax: | Fax: | | | | | | [phone] | [phone] | +--------+--------+ + + + + Diagnostic Testing (Routine) +--------+--------+ + + + + | Status | Reason | Specialty | Diagnoses / | Referred By | Referred To | | | | | Procedures | Contact | Contact | +--------+--------+ + + + + | Closed | | Clinical | Procedures | Lopez, | | | | | Neurophysiolo | EEG | Too Bruno MD | | | | | gy | ROUTINE | [address] | | | | | | | Zach | | | | | | | [address] | | | | | | | [place], [place] | | | | | | | [address] | | | | | | | Phone: | | | | | | | [phone] | | | | | | | Fax: | | | | | | | [phone] | | +--------+--------+ + + + + Diagnostic Testing (Routine) +--------+--------+ + + + + | Status | Reason | Specialty | Diagnoses / | Referred By | Referred To | | | | | Procedures | Contact | Contact | +--------+--------+ + + + + | Closed | | Cardiology | Procedures | Cornejo, | Car Echo | | | | | | Hansel Hein, | [facility] [address] | | | | | TRANSTHORACI | MD [address] | | | | | C | [address] [address] | [address] | | | | | [address] | [address] | [place] | | | | | AM, ADULT | [place], [place] | [facility] | | | | | | [address] | floor | | | | | | | [place], [place] | | | | | | | [address] | | | | | | | Phone: | | | | | | | [phone] | +--------+--------+ + + + + Reason for Visit + + + | Reason | Comments | + + + | CHF - Congestive | | | heart failure | | + + + | Pulmonary | | | hypertension | | + + + AUTH/CERT +--------+--------+ + + + + | Status | Reason | Specialty | Diagnoses / | Referred By | Referred To | | | | | Procedures | Contact | Contact | +--------+--------+ + + + + | Closed | | Adult Acute | | | [facility] | | | | Care | | | Medicine | | | | | | | [address] [facility] | | | | | | | [address] | | | | | | | Mushtaq Mailcode: | | | | | | | [address] [facility] | | | | | | | Hospital | | | | | | | [place], [place] | | | | | | | [address] | | | | | | | Phone: | | | | | | | [phone] | | | | | | | Fax: | | | | | | | [phone] | +--------+--------+ + + + + Encounter Details +--------+ + + + + | Date | Type | Department | Care Team | Description | +--------+ + + + + | 05/02/ | Hospital | [facility] MEDICINE | Lenora Lawson MD | | | 2012 - | Encounter | [address] | [address] | | | | | [address]ja [address] Mailcode: | [address] [place], | | | 05/12/ | | [facility] [facility] | [place] [address] | | | 2012 | | [place], [place] | [phone] | | | | | [address] | | | | | | [phone] | Agus Jiang, | | | | | | [address] | | | | | | [address] | | | | | | [place], [place] | | | | | | [address] | | | | | | [phone] | | | | | | | [...] + + + +--------+------+ + + | Tobacco Cessation: Ready to [...] + + + | Blood Pressure | 115/63 | 05/12/2013 8:07 AM | | | | | PDT | | + + + + + | Pulse | 79 | 05/12/2013 8:07 AM | | | [...] + | Oxygen Saturation | 94% | 05/12/2013 8:07 AM | | | | | PDT | | + + + + + | Inhaled Oxygen | - | - | | | Concentration | | | | + + + + + | Weight | 106.9 kg (235 lb | 05/10/2013 8:12 AM | | | | 10.8 oz) | PDT | | + + + + + | Height | 149.9 cm (4' 11") | 05/02/2013 8:47 PM | | | | | PDT | | + + + + + | Body Mass Index | 47.6 | 05/02/2013 8:47 PM | | | | | PDT | | + + + + + documented in this encounter Discharge Summaries Too Lopez MD - 05/10/2013 10:50 AM PDT INPATIENT PHYSICIAN DISCHARGE SUMMARY Author: Cristine Freeman MD Attending Physician: Dr. Taty Bucio MD PCP: Gela Trimble NP Admission Date: 05/02/2013 Discharge Date: 05/12/2013 Principal Final Diagnosis: Volume overload Additional Diagnoses: Dyspnea Right heart failure/cor pulmonale Pulmonary hypertension COPD GLORIA (obstructive Sleep apnea) Morbid obesity Seizure disorder Bipolar affective disorder PTSD Developmental delay Tobacco use Hypothyroidism UTI Deconditioning Small pericardial effusion Principal Procedure: right heart cath 05/10/13: Conclusions Elevated right sided and normal left sided filling pressures with severe pulmonary hyperten dariusz (mean PAP 63 mmHg, PVR 26 FUENTES) and severely depressed cardiac index (Rehan CI 1.0). There was no response to inhaled nitric oxide. Imaging: TTE 05/04/2013 1. The left ventricular cavity size is decreased. 2. The LV systolic function is normal. 3. Visually estimated left ventricular ejection fraction is 60 - 65%. 4. Severely enlarged right ventricle. Mildly reduced systolic function. 5. Severely elevated right ventricular systolic pressure. 6. Severely dilated right atrium. 7. Study strongly suggestive of pulmonary arterial hypertension. 8. Small pericardial effusion. PFTs 05/08: FEV1- 59% FVC- 70% FEV1/FVC- 68% Overnight Oximetry: 18 desaturations, spO2 83=97%. 99% of time =>90%. OSH CTA with no PE and no changes from emphysema (per report) EEG 05/04: Interpretation: This is a normal awake and drowsy EEG. A normal routine EEG does not rule out a clinical diagnosis of epilepsy. Hospital Course: See H&P for full details of presentation. In brief, 47 year old morbidly obese female with COPD on home O2, severe GLORIA recently started on CPAP though not compliant, tob use, bipolar/ PTSD, devlpmtl delay, hypothyroidism, and seizure disorder (on AED's) who in transferred fro m OSH for volume overload. Increased SOB, MORGAN, decreased exercise tolerance, orthopnea, 20# weight gain and significant AYDE. TTE at OSH on 03/27 revealed evidence of right heart dysfun ction with with marked enlargement and hypertrophy of RV with paradoxal septal wall movement with flattening of interventricular septum. RVSP 75 +. Transferred to [facility] from OSH ED on after presenting with worsened dyspnea and AYDE. In ambulance. In ambulance pressures danilo pped from 94/68 --> 66/40 as well as O2 sat form 90% in 4 Liters to 83% on 4 Liters. EMS con cerned for acute pulmonary edema and was given 20 mg IV lasix with 1500 milliliters of urine with improvement in pressures to 100/80s. Initial vitals on arrival at [facility] were T 36.6 BP 110/69 P 74 RR 20 Spo2 90-93 % on 5 LNC. On arrival pt denied recent f/c/infectious sx. Imp roved SOB with IV lasix. No prior diagnosis of heart failure. Estimated 12-14L of volume diu resed during hospital course. Pt also experienced to witnessed seizure activity x2. Neurology service followed and change d her medication from phenytoin + valproate to solely divalproic acid (Depakote) 500mg TID. No seizure activity with new medication change for past 5 days. Level done on 05/11 was thera peutic. #. Volume overload/cor pulmonale- The patient was easily diuresed with IV lasix (40 mg IV B ID netted ~net negative 1.5-3L daily). Total diuresis obtained during stay not accurate due to patient incontinence (chronic) and difficulty obtaining accurate daily weights, estimated to be at least >10L.Significantly improved AYDE by discharge. Dyspnea improved after first f ew days. BUN/Cr have remained at baseline. -d/benjie on lasix 80mg PO daily, Kcl 40meq daily -needs f/u BMP, mg 05/14 or 05/15. Will need monitoring to determine when pt euovolemic and then an appropriate maintenance diuretic dose -Follow daily weights to ensure proper diuresis -pt will f/u with optical lab technician- [facility] Langley in [place] #. Pulmonary hypertension, idiopathic- diagnosis confirmed via RHC on 05/10/13, no improveme nt with inhaled NO, aka would not beneift from CCB. Severe Phtn and cause of cor pulmonale. No e/o left heart failure on RHC or TTE. Pulm factors contributing include severe GLORIA, mod o bstructive COPD. CHAMP, ANCA, HIV screen neg (other causes of group A PHtn). CTA neg for PE as above. Thus "idiopatic." Pt encouraged to use CPAP at night and while napping during day. I deally pt would be started on bosentan but can't be done as inpatient. Thus started on siden afil for treatment at low dose (20mg PO TID), can be uptirated or switched to bosentan as ou tpatient. -to arrange f/u with pulm here at [facility] #. GLORIA- "reported "severe adult GLORIA" by outside facility based on PSG on 03/13/13. However, patient often refused CPAP during hosptialization, and overnight oximetry performed while of f CPAP showed minimal and minor sleep desaturations. Recommend patient use her CPAP at previ ously titrated settings (bilevel pressures 18cm H20 IPAP/14cm H20 EPAP) #. COPD- continued on home meds, given pneumovax vaccine prior to dc #. Small pericardial effusion- incidentally noted on TTE 03/27 and on this admission. Not HD significant. TSH wnl. HCAMP screen neg. Further w/u not felt indicated. #. Seizure disorder- Known seizure d/o on mult AED. Pt presented to OSH on 03/26 with seizur e-like activity, neg head CT per report and EEG with mild global encephalopathy. Had vilma sed seizure-like activity while admitted on 05/03/13 and additional activity on 05/04. Both depa kote and phenytoin levels subtherapeutic. Nuerology was consulted. Given unpredictable inter action btwn depakote and phenytoin, recommended increasing depakote dose and d/cing phenytoi n. Repeat depakote level therapeutic. Also d/benjie tramadol and wellbutrin as lowers seizure threshold. Continued on gabapentin, which also lowers seizure threshold. Obtained EEG on 05/04 which was normal. Last seizure-like activity was on 05/04/13. Ammonia level followed and st able on increased depakote. PCP and pt advised to have pt establish with outpt neurologist. Continue to follow LFTs to ensure proper livery function on depakote (05/14 lab) #. Bipolar affective disorder- as above, d/benjie wellbutrin as lowers seizure threshold, psyc h f/u prn, stable mood while inpt #. Dirty UA- treated with bactrim 05/03-05/05 for UA with mod LE, 130 wbc, few bacteria, few sq am. Afebrile, no leukocytosis. Urine culture did not grow anything. Recent abx treatment as outpt as well for UTI. #. Deconditioning- evaluated by PT and skilled for SNF. #. Tob use- cessation encouraged. Given nicotine patch, had cessation consult. Vitals/Labs/Imaging: Ht 149.9 cm (4' 11")( < 3 %ile), Wt 106.9 kg (235 lbs 10.8 oz)( < 3 %ile), BP 102/56, Pulse 82, Temperature 36.9 C (98.4 F), RR 18, SpO2 92%, BMI 47.57 kg/(m^2). CBC with diff last 72 hours (or 3 results) Recent Labs 05/08/13 0646 05/09/13 0718 05/10/13 0736 WBC 7.9 8.2 6.8 HB 16.8* 16.5* 16.1* HCT 50.9* 50.6* 49.2* PLT 130* 131* 127* Chemistries: Last 72 Hours (or 3 results): Recent Labs 05/08/13 0646 05/09/13 0718 05/10/13 0736 NA 139 139 140 K 4.1 3.9 3.6 CL 102 99 100 BICARB 26 30 32 BUN 18 20 18 CR 0.82 0.82 0.79 CA 8.8 9.3 8.5* MG 1.8 1.9 1.9 Lab Results Component Value Date INRPT 1.23* 05/02/2013 Physical exam on discharge date: General Appearance: Well-appearing female lying in bed in NAD with NC in place, drowsy HEENT: EOMI, mmm Neck: JVP difficult to interpret Cardiovascular: normal S1/S2, RRR, no m/r/g Respiratory: mild expiratory wheezes heard throughout, mild bibasilar crackles Gastrointestinal: soft, NT, ND, obese, + bowel sounds Extremities: +2 pitting edema in LE, though up to mid lower leg; improved from prior exams Psychiatric: appropriate mood and affect Medications: Current Discharge Medication List START taking these medications Details furosemide (LASIX) 80 mg Oral tablet Take 1 Tab by mouth two times daily for 30 days. Qty: 60 Tab, Refills: 0 potassium chloride SR 20 mEq Oral tablet,ER particles/crystals Take 2 Tabs by mouth once da jammie for 30 days. Qty: 60 Tab, Refills: 2 sildenafil (VIAGRA) 25 mg Oral tablet Take 0.75 Tabs by mouth three times daily for 30 days . For pulmonary hypertension. Qty: 67.5 Tab, Refills: 0 CONTINUE these medications which have NOT CHANGED Details albuterol 90 mcg/actuation Inhalation HFA Aerosol Inhaler Inhale every four hours as needed . albuterol-ipratropium 18-103 mcg/actuation Inhalation Aerosol (Aero) Inhale 1 Puff every si x hours as needed. ascorbic acid 500 mg Oral tablet Take 500 mg by mouth two times daily. buPROPion SR 200 mg Oral tablet extended release Take 200 mg by mouth once daily in the [facility] katarzyna. cetirizine 10 mg Oral tablet Take 10 mg by mouth once daily. cholecalciferol, Vitamin D3, 1,000 unit Oral tablet Take 2,000 Units by mouth once daily. !! divalproex DR 250 mg Oral tablet,delayed release (DR/EC) Take 250 mg by mouth once daily in the morning. !! divalproex DR 500 mg Oral tablet,delayed release (DR/EC) Take 500 mg by mouth once daily at bedtime. docusate sodium 50 mg Oral capsule Take 50 mg by mouth once daily. estradiol 1 mg Oral tablet Take 2 mg by mouth once daily. ferrous sulfate 325 mg (65 mg iron) Oral tablet Take 325 mg by mouth two times daily. gabapentin 300 mg Oral capsule Take 600 mg by mouth three times daily. levothyroxine 137 mcg Oral tablet Take 137 mcg by mouth once daily. meloxicam 15 mg Oral tablet Take 15 mg by mouth once daily. nicotine 7 mg/24 hr Transdermal Patch 24 hr Apply 1 Patch to skin once daily. [place]-3 Fatty Acids-Vitamin E (FISH OIL) 1,000 mg Oral capsule Take 1 Cap by mouth two time s daily. omeprazole 20 mg Oral capsule,delayed release(DR/EC) Take 20 mg by mouth once daily in the morning. PARoxetine 20 mg Oral tablet Take 20 mg by mouth once daily. risperiDONE 4 mg Oral tablet Take 4 mg by mouth once daily at bedtime. simvastatin 20 mg Oral tablet Take 20 mg by mouth once daily in the evening. !! - Potential duplicate medications found. Please discuss with provider. STOP taking these medications gabapentin 600 mg Oral tablet Comments: Reason for Stopping: phenytoin ER 100 mg Oral capsule Comments: Reason for Stopping: spironolactone 25 mg Oral tablet Comments: Reason for Stopping: Followup: -performed MD-to-MD signout with SNF physician to follow, Dr. Ansari from [facility] -spoke to PCP and spoke over hospital course and f/u plans -will have pulm f.u here at [facility] as no pulm htn specialist in [place], to be arranged -asked PCP, who had been managing seizure d/o to arrange for neurology f/u in [place] (a greed) -pt will f/u with optical lab technician- [facility] Langley in [place] Outstanding labs/studies: none Cristine Freeman MD Internal Medicine Resident Pager [phone] Jessica Lopez MD Anesthesiology, PGY-1 Pager [phone] documented in t his encounter Medications at Time of Discharge + + + +---------+ + + | Medication | Sig | Dispensed | Refills | Start | End Date | | | | | | Date | | + + + +---------+ + + | albuterol 90 | Inhale every four | | 0 | | | | mcg/actuation | hours as needed. | | | | | | Inhalation HFA | | | | | | | Aerosol Inhaler | | | | | | + + + +---------+ + + | | Inhale 1 Puff every | | 0 | | | | albuterol-ipratropiu | six hours as needed. | | | | | | m 18-103 | | | | | | | mcg/actuation | | | | | | | Inhalation Aerosol | | | | | | | (Aero) | | | | | | + + + +---------+ + + | ascorbic acid 500 | Take 500 mg by mouth | | 0 | | | | mg Oral tablet | two times daily. | | | | | + + + +---------+ + + | cetirizine 10 mg | Take 10 mg by mouth | | 0 | | | | Oral tablet | once daily. | | | | | + + + +---------+ + + | cholecalciferol, | Take 2,000 Units by | | 0 | | | | Vitamin D3, 1,000 | mouth once daily. | | | | | | unit Oral tablet | | | | | | + + + +---------+ + + | docusate sodium 50 | Take 50 mg by mouth | | 0 | | | | mg Oral capsule | once daily. | | | | | + + + +---------+ + + | estradiol 1 mg | Take 2 mg by mouth | | 0 | | | | Oral tablet | once daily. | | | | | + + + +---------+ + + | ferrous sulfate | Take 325 mg by mouth | | 0 | | | | 325 mg (65 mg iron) | two times daily. | | | | | | Oral tablet | | | | | | + + + +---------+ + + | gabapentin 300 mg | Take 600 mg by mouth | | 0 | | | | Oral capsule | three times daily. | | | | | + + + +---------+ + + | levothyroxine 137 | Take 137 mcg by | | 0 | | | | mcg Oral tablet | mouth once daily. | | | | | + + + +---------+ + + | meloxicam 15 mg | Take 15 mg by mouth | | 0 | | | | Oral tablet | once daily. | | | | | + + + +---------+ + + | nicotine 7 mg/24 | Apply 1 Patch to | | 0 | | | | hr Transdermal Patch | skin once daily. | | | | | | 24 hr | | | | | | + + + +---------+ + + | [place]-3 Fatty | Take 1 Cap by mouth | | 0 | | | | Acids-Vitamin E | two times daily. | | | | | | (FISH OIL) 1,000 mg | | | | | | | Oral capsule | | | | | | + + + +---------+ + + | omeprazole 20 mg | Take 20 mg by mouth | | 0 | | | | Oral capsule,delayed | once daily in the | | | | | | release(/EC) | morning. | | | | | + + + +---------+ + + | PARoxetine 20 mg | Take 20 mg by mouth | | 0 | | | | Oral tablet | once daily. | | | | | + + + +---------+ + + | risperiDONE 4 mg | Take 4 mg by mouth | | 0 | | | | Oral tablet | once daily at | | | | | | | bedtime. | | | | | + + + +---------+ + + | simvastatin 20 mg | Take 20 mg by mouth | | 0 | | | | Oral tablet | once daily in the | | | | | | | evening. | | | | | + + + +---------+ + + | divalproex DR 500 | Take 1 Tab by mouth | 90 Tab | 0 | 05/12/20 | | | mg Oral | three times daily | | | 13 | 3 | | tablet,delayed | for 30 days. | | | | | | release (DR/EC) | | | | | | + + + +---------+ + + | furosemide (LASIX) | Take 1 Tab by mouth | 60 Tab | 0 | 05/12/20 | | | 80 mg Oral tablet | two times daily for | | | 13 | 3 | | | 30 days. | | | | | + + + +---------+ + + | potassium chloride | Take 2 Tabs by mouth | 60 Tab | 2 | 05/12/20 | | | SR 20 mEq Oral | once daily for 30 | | | 13 | 3 | | tablet,ER | days. | | | | | | particles/crystals | | | | | | + + + +---------+ + + documented as of this encounter Progress Notes Ttay Bucio MD - 05/12/2013 11:00 AM PDTInternal Medicine Attending I personally interviewed the patient, performed the pertinent parts of the physical examina tion and personally formulated the plan with the resident team. I agree with the resident's documentation and have documented any additions or exceptions. Exam sig for: very sleepy, but arousable (nl for pt per caregiver), answering questions curt ropriately, chest cta, cv rrr nl s1s2, abd soft ndnt Main issues: 1. Pulmonary hypertension - needs f/u with pulm htn clinic. Started on sindenefil per pulm. Stable for d/c. 2. Sleep apnea - pt unable to tolerate cpap 3. Seizure disorder, bipolar disorder, developmental delay 4. Dispo - d/c to SNF near [place] for rehab. Taty Bucio MD, MPH structures engineer [facility] DEPARTMENT: [id number]- [facility] [place] [facility] Place of Service:- Inpatient Date of Service: 05/12/2013 CSN: [id number] Suggested Modifiers:GC- Resident present for procedure Suggested CPT: 98632- Discharge < 30 min Too Lechuga MD - 05/11/2013 9:01 PM PDT General Internal Medicine 4 Resident Progress Note Hospital Day:9 Author; TOO LOPEZ MD Attending Physician: Agus Jiang MD 24 Hour Events: No acute overnight events. Subjective: Pt is drowsy this morning, no complaints. Pt received RHC yesterday. Physical Examination: Last 24 hour min/max Temp: 37.1 C (98.8 F) Temp Min: 36.9 C (98.4 F) Max: 37.1 C (98.8 F) Pulse: 82 Pulse Min: 77 Max: 85 Resp: 20 Resp Min: 16 Max: 20 BP: 122/59 mmHg BP Min: 104/63 Max: 122/59 SpO2: 94 % SpO2 Min: 92 % Max: 96 % Body mass index is 47.57 kg/(m^2). Intake/Output Summary (Last 24 hours) at 05/11/13 2101 Last data filed at 05/11/13 0300 Gross per 24 hour Intake 900 ml Output 0 ml Net 900 ml General Appearance: Well-appearing female lying in bed in NAD with NC in place HEENT: EOMI Neck: JVP difficult to interpret Cardiovascular: normal S1/S2, RRR, no m/r/g Respiratory: mild expiratory wheezes heard throughout Gastrointestinal: soft, NT, ND, obese, + bowel sounds Extremities: +2 pitting edema in LE, though up to mid lower leg; improved from prior exams Psychiatric: appropriate mood and affect, cheerful and cooperative Current Medications: Current Inpatient Medications Medication Dose Route Frequency acetaminophen (aka TYLENOL) tablet 500 mg 500 mg Oral Q6H PRN albuterol (aka PROVENTIL, VENTOLIN) 90 mcg/actuation inhaler 2 Puff 2 Puff Inhalation QID ascorbic acid tablet 500 mg 500 mg Oral BID cholecalciferol (Vitamin D3) (aka VITAMIN D-3) tablet 2,000 Units 2,000 Units Oral MARIBELL LY divalproex DR (aka DEPAKOTE) tablet 500 mg 500 mg Oral TID docusate sodium (aka COLACE) capsule 50 mg 50 mg Oral DAILY ferrous sulfate tablet 325 mg total salt 325 mg total salt Oral BID folic acid (aka FOLVITE) tablet 1 mg 1 mg Oral DAILY furosemide (aka LASIX) injection 40 mg 40 mg Intravenous BID ( and ) gabapentin (aka NEURONTIN) tablet 600 mg 600 mg Oral TID heparin injection 5,000 Units 5,000 Units Subcutaneous Q8H levothyroxine tablet 137 mcg 137 mcg Oral DAILY loratadine (aka CLARITIN) tablet 10 mg 10 mg Oral DAILY nicotine (aka NICOTROL) 21 mg/24 hr patch 1 Patch 1 Patch Transdermal DAILY omeprazole (aka PRILOSEC) capsule 20 mg 20 mg Oral QAM PARoxetine (aka PAXIL) tablet 20 mg 20 mg Oral DAILY potassium chloride SR (aka K-DUR) tablet 40 mEq 40 mEq Oral DAILY risperiDONE (aka RISPERDAL) tablet 4 mg 4 mg Oral HS simvastatin (aka ZOCOR) tablet 20 mg 20 mg Oral QPM thiamine tablet 100 mg 100 mg Oral DAILY Laboratory Interpretation: Lab Results Component Value Date WBC 6.6 05/11/2013 HB 16.1 05/11/2013 HCT 49.6 05/11/2013 PLT 136 05/11/2013 MCV 100.5 05/11/2013 RDW 15.0 05/11/2013 Lab Results Component Value Date NA 138 05/11/2013 K 3.9 05/11/2013 CL 99 05/11/2013 BICARB 29 05/11/2013 BUN 22 05/11/2013 CR 0.90 05/11/2013 GLU 105 05/11/2013 CA 9.4 05/11/2013 AST 30 05/11/2013 ALT 38 05/11/2013 AP 107 05/11/2013 TBILI 0.4 05/11/2013 TP 7.0 05/11/2013 ALB 2.8 05/11/2013 M.0 Depakote level: 84.4 Ammonia level: 72 Right Heart Cath: Elevated right sided and normal left sided filling pressures with severe pulmonary hypertension (mean PAP 63 mmHg, PVR 26 FUENTES) and severely depressed cardiac index (F ick CI 1.0). There was no response to inhaled nitric oxide. See procedure note for more deta ils. Imaging Interpretation: None. Assessment and Plan Keo Rowley is a 47 y/o F with PMHx morbid obesity, GLORIA, COPD (on home O2), bipolar/PTSD, developmental delay, hypothyroidism, HLD, and seizure disorder (on AED's), transferred from OSH after referral from PCP after presenting with worsening edema and dyspnea with subsequen t echo showing pHTN per report. Pt has not had any witnessed seizure activity in the last 5 days and is clinically stable. #pHTN, RH failure, volume overload - clinically stable, not amenable to NO per cards, consi haley group 1 PAH -scheduled 40mg IV lasix BID -wean down O2 to sats >92, currently on 2L NC -per pulm - okay to F/U outpt pulm clinic -outpt referral -continue to monitor UOP with daily weights #seizure - stable -stable depakote level, continue 500mg TID -continue gabapentin 600mg TID #low potassium- repleted with 40mEq K PO #UTI - resolved #GLORIA - CPAP at night - outside sleep study records obtained -encourage use of CPAP at night #mordid obesity #Bipolar disorder/PTSD -paxil 20mg PO qdaily -risperdal 4mg PO qbedtime #COPD/smoking -patient counseled on importance of smoking cessation to improve breathing -nicotine patch -albuterol 2 puff QID #hypothyroidism -levothyroxine 137mcg PO qdaily #dispo - per PT, pt should dc to SNF for rehab -plan for transport tomorrow 11am to [facility] -spoke with Dr. Ansari (family med at [facility]), physician to take care of p t at SNF -outpt meds: lasix 80mg PO BID, 40mEq KCl tab daily Agus Jiang MD saw and evaluated this patient and aggress with my assessment and plan as documented above. Jessica Lopez MD Anesthesiology, PGY-1 Pager [phone] Agus Sandoval MD - 05/11/2013 4:10 PM PDT 4 GENERAL MEDICINE ATTENDING PROGRESS NOTE ADMIT DATE: 05/02/2013 8:40 PM TODAY'S DATE: 05/11/2013 (HOSPITAL DAY 9) I personally interviewed the patient, performed the beverly elements of the physical examabbey gerber, reviewed new lab data in EPIC, looked at any new radiology images and have developed an u pdated assessment and plan together with the 4 residents, Dr. Lopez/Lydia. Please see e housestaff notes for full details. History: RHC yesterday. No acute events. Pt says she is breathing well Exam: BP 104/63 | Pulse 77 | Temp 37 C (98.6 F) | RR 18 | Ht 1.499 m (4' 11") | Wt 106.9 kg ( 235 lb 10.8 oz) | SpO2 96% | BMI 47.57 kg/(m^2) RRR No respiratory distress, lung sound clear, but distant Lower legs with 1+ edema (much improved from admit) Neuro: non-focal Assessment and Plans Patient Active Hospital Problem List: 1) *Pulmonary arterial hypertension: confirmed on RHC. Exact Cause of PAH still unknown. Will need follow up in the Pulmonary HTN clinic here. Pressures are high enough to warrant treatment. Tried to arrange starting Bosentan based on Pulmonary recs, but the team found out from pharmacy that it is not possible at this moment and more paper work will need to be filled out. In the mean time we will discharge with sildenafil (even though she did not re spond to NO during the RHC) in the hope it may offer some improvement. Stress need for cont inuous oxygen. The team will call the SNF to make sure there is an MD there who will feel c omfortable managing the patients twice daily lasix and will follow a BMP next week to help g uide therapy and potassium replacement. She will likely need some degree of daily lasix, bu t may not need 80 bid PO lasix indefinitely. 2) Dyspnea: much improved from admission 3) Pulmonary hypertension 4) Cor pulmonale, chronic 5) Right heart failure due to pulmonary hypertension 6) Sleep apnea 7) Morbid obesity with BMI of 45.0-49.9, adult 8) COPD (chronic obstructive pulmonary disease) with chronic bronchitis 9) Anasarca 10) Seizure disorder: the team has worked to get a neurology follow up. 11) Bipolar affective disorder 12) Developmental delay 13) Debility: Requires assistance to get up. Likely due to prolonged bed bound state and l ow motivation level to ambulate, She is up most of the night and then sleeps during the day when PT etc are around to help her get out of bed. Dispo: to SNF, transport set up for tomorrow. 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 Got RHC yesterday. Physical therapy worked with her again yesterday afte karyna. States that she slept well, but fell asleep very late. She continues to refuse her CPAP at night Current Symptoms: She is feeling extremely drowsy Physical Examination: Last 24 hour min/max Temp: 36.9 C (98.4 F) Temp Min: 35.7 C (96.2 F) Max: 37.5 C (99.5 F) Pulse: 85 Pulse Min: 70 Max: 88 Resp: 16 Resp Min: 16 Max: 18 BP: 117/64 mmHg BP Min: 94/59 Max: 117/64 SpO2: 92 % SpO2 Min: 92 % Max: 94 % Body mass index is 47.57 kg/(m^2). Intakes and outputs: No new body weight to compare to yesterday General: Very tired, coherent but eyes were closed during the exam. Heart: Peripheral edema is unchanged from yesterday. Physiologic split S2. No murmurs or gallops. Lungs: Expiratory wheezes. Steady and mildly labored breathing. Abd: Soft, non-tender. Liver and spleen not palpable. Laboratory Interpretation: Lab Results Component Value Date WBC 6.6 05/11/2013 HB 16.1 05/11/2013 HCT 49.6 05/11/2013 PLT 136 05/11/2013 MCV 100.5 05/11/2013 RDW 15.0 05/11/2013 Chemistries: Last 72 Hours (or 3 results): Recent Labs 05/09/13 0718 05/10/13 0736 05/11/13 0750 NA 139 140 138 K 3.9 3.6 3.9 CL 99 100 99 BICARB 30 32 29 BUN 20 18 22* CR 0.82 0.79 0.90 GLU 98 104* 105* CA 9.3 8.5* 9.4 MG 1.9 1.9 2.0 Assessment and Plan #Pulmonary HTN: Her RHC revealed markedly elevated right heart pressure with normal PCWP. This appears to rule out left heart failure as the cause of her pulm. HTN. Continue to enc ourage use of CPAP due to reduce exacerbation of her condition from GLORIA. #Fluid overload: Continue on Lasix. Monitor weights to assess net losses. #Mobility: PT was able to see her and stated that she continues to be excited about her th erapy and participates well. She is able to sit and stand with moderate assistance. lements, Agus Farrar MD - 05/10/2013 11:41 AM [facility] 4 GENERAL MEDICINE ATTENDING PROGRESS NOTE ADMIT DATE: 05/02/2013 8:40 PM TODAY'S DATE: 05/10/2013 (HOSPITAL DAY 8) I personally interviewed the patient, performed the beverly elements of the physical examinatio n, reviewed new lab data in EPIC, looked at any new radiology images and have developed an u pdated assessment and plan together with the 4 residents, Dr. Lopez/Lydia. Please see doctors' hospital housestaff notes for full details. I agree with their note with the following additions/ex ceptions. Assessment and Plans Patient Active Hospital Problem List: 1) *Right heart failure due to pulmonary hypertension: Still unclear cause of PulmHTN. Cou ld still be related to GLORIA, will review results of initial sleep study showing severe AHI [facility] pulmonology. RHC today. IF wedge pressure is normal, would rule out Group 2 causes and force us to consider how much GLORIA plays a role or if there are undiagnosed Group 1 (PAH) cau ses. -continue to diurese with IV lasix. Continue to check daily BMP to make sure there is not renal toxicity or low K from the lasix. -Attempt to get daily wts instituted so that we can follow progress of diuresis without put ting her at risk for UTI. 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 Subjective: Pt is very friendly this morning and is upset that she cannot eat or drink, but understands why. She thinks her breathing has improved. Pt continues to have adequate urine output per nursing, but difficult to assess since her amezcua was removed and daily weights are not readi ly available. Physical Examination: Last 24 hour min/max Temp: 36.9 C (98.4 F) Temp Min: 36.2 C (97.2 F) Max: 36.9 C (98.4 F) Pulse: 82 Pulse Min: 82 Max: 89 Resp: 18 Resp Min: 16 Max: 18 BP: 102/56 mmHg BP Min: 87/46 Max: 121/62 SpO2: 92 % SpO2 Min: 92 % Max: 95 % Body mass index is 47.57 kg/(m^2). Intake/Output Summary (Last 24 hours) at 05/10/13 1053 Last data filed at 05/10/13 0814 Gross per 24 hour Intake 1050 ml Output 0 ml Net 1050 ml General Appearance: Well-appearing female lying in bed in NAD HEENT: EOMI Neck: JVP difficult to interpret Cardiovascular: normal S1/S2, RRR, no m/r/g Respiratory: mild expiratory wheezes heard throughout Gastrointestinal: soft, NT, ND, obese, + bowel souns Extremities: +2 pitting edema in LE, though up to mid lower leg; improved from prior exams Psychiatric: appropriate mood and affect Current Medications: Current Inpatient Medications Medication Dose Route Frequency acetaminophen (aka TYLENOL) tablet 500 mg 500 mg Oral Q6H PRN albuterol (aka PROVENTIL, VENTOLIN) 90 mcg/actuation inhaler 2 Puff 2 Puff Inhalation QID ascorbic acid tablet 500 mg 500 mg Oral BID cholecalciferol (Vitamin D3) (aka VITAMIN D-3) tablet 2,000 Units 2,000 Units Oral MARIBELL LY divalproex DR (aka DEPAKOTE) tablet 500 mg 500 mg Oral TID docusate sodium (aka COLACE) capsule 50 mg 50 mg Oral DAILY ferrous sulfate tablet 325 mg total salt 325 mg total salt Oral BID folic acid (aka FOLVITE) tablet 1 mg 1 mg Oral DAILY furosemide (aka LASIX) injection 40 mg 40 mg Intravenous BID ( and ) gabapentin (aka NEURONTIN) tablet 600 mg 600 mg Oral TID heparin injection 5,000 Units 5,000 Units Subcutaneous Q8H levothyroxine tablet 137 mcg 137 mcg Oral DAILY loratadine (aka CLARITIN) tablet 10 mg 10 mg Oral DAILY magnesium sulfate IV 4 g 4 g Intravenous ONCE nicotine (aka NICOTROL) 21 mg/24 hr patch 1 Patch 1 Patch Transdermal DAILY omeprazole (aka PRILOSEC) capsule 20 mg 20 mg Oral QAM PARoxetine (aka PAXIL) tablet 20 mg 20 mg Oral DAILY potassium chloride SR (aka K-DUR) tablet 40 mEq 40 mEq Oral ONCE potassium chloride SR (aka K-DUR) tablet 40 mEq 40 mEq Oral ONCE risperiDONE (aka RISPERDAL) tablet 4 mg 4 mg Oral HS simvastatin (aka ZOCOR) tablet 20 mg 20 mg Oral QPM thiamine tablet 100 mg 100 mg Oral DAILY Laboratory Interpretation: CBC with diff last 72 hours (or 3 results) Recent Labs 05/08/13 0646 05/09/13 0718 05/10/13 0736 WBC 7.9 8.2 6.8 HB 16.8* 16.5* 16.1* HCT 50.9* 50.6* 49.2* PLT 130* 131* 127* Recent Labs 05/08/13 0646 05/09/13 0718 05/10/13 0736 NA 139 139 140 K 4.1 3.9 3.6 CL 102 99 100 BICARB 26 30 32 BUN 18 20 18 CR 0.82 0.82 0.79 GLU 94 98 104* CA 8.8 9.3 8.5* AST 34 34 29 ALT 53 47 41 AP 145* 133* 118* TBILI 0.3 0.5 0.4 TP 6.7 7.1 6.8 ALB 2.7* 3.0* 2.7* Labs: Lab Results Component Value Date MG 1.9 05/10/2013 Imaging Interpretation: None. Assessment and Plan Keo Rowley is a 47 y/o F with PMHx morbid obesity, GLORIA, COPD (on home O2), bipolar/PTSD, developmental delay, hypothyroidism, HLD, and seizure disorder (on AED's), transferred from OSH after referral from PCP after presenting with worsening edema and dyspnea with subsequen t echo showing pHTN per report. Pt has not had any witnessed seizure activity in the last 5 days and is clinically stable. #pHTN, RH failure, volume overload - still +2 pitting edema, improved -scheduled 40mg IV lasix BID -wean down O2 to sats >92, currently on 2L NC -F/U pulm oximetry study and consult to sleep medicine re: CPAP settings and outpt optimiz ation -continue to monitor UOP with daily weights -pt to receive RH cath today - F/U results #seizure - stable -depakote 500 TID -per neuro and pharm, check trough level of depakote on 7/12 am prior to first dose -continue gabapentin 600mg TID #low potassium- repleted with 80mEq K PO #UTI - resolved -to prevent hospital acquired UTI, removed amezcua catheter #GLORIA - CPAP at night - outside sleep study records obtained -F/U with pulm team -obtain outside records of original sleep study #mordid obesity #Bipolar disorder/PTSD -paxil 20mg PO qdaily -risperdal 4mg PO qbedtime #COPD/smoking -patient counseled on importance of smoking cessation to improve breathing -nicotine patch -albuterol 2 puff QID #hypothyroidism -levothyroxine 137mcg PO qdaily #dispo - per PT, pt should dc to SNF for rehab -F/U SW and CM for SNF placement upon DC Agus Jiang MD saw and evaluated this patient and aggress with my assessment and plan as documented above. Jessica Lopez MD Anesthesiology, PGY-1 Pager [phone] lements, Agus Farrar MD - 05/09/2013 3:08 PM PDT 4 GENERAL MEDICINE ATTENDING PROGRESS NOTE ADMIT DATE: 05/02/2013 8:40 PM TODAY'S DATE: 05/09/2013 (HOSPITAL DAY 7) I personally interviewed the patient, performed the beverly elements of the physical examinatio n, reviewed new lab data in EPIC, looked at any new radiology images and have developed an u pdated assessment and plan together with the 4 residents, Dr. Lopez/Lydia. Please see e housestaff notes for full details. I agree with their note with the following additions/ex ceptions. History: She says her breathing is ok Exam: BP 104/64 | Pulse 80 | Temp 37.2 C (99 F) | RR 16 | Ht 1.499 m (4' 11") | Wt 105.7 kg ( 233 lb 0.4 oz) | SpO2 95% | BMI 47.04 kg/(m^2) RRR no murmurs, still has physiologic split s2 Edema is decreased from admission but still 2+ in the lower legs. Assessment and Plans Patient Active Hospital Problem List: 1) *Right heart failure due to pulmonary hypertension: Continue BID IV lasix. Work on gett ing daily wts to follow diuresis. Request RHC to look at wedge pressure and more accurately characterize her pulm htn. 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 Division of Hospital Medicine Department of Internal Medicine [facility] DEPARTMENT: Hosp- [id number] Place of Service: - Date of Service: 05/09/2013 CSN: [id number] Modifiers:GC Resident Involved: Yes Suggested CPT: 84854 Subsequent Visit Exp Prob Foc/Mod Complexity 25 min ristine Freeman M D - 05/09/2013 1:18 PM PDT Inpatient Medicine Progress Note Attending: Agus Jiang MD Hospital Day: 7 Assessment and Plan Keo Rowley is a 47 y/o F with PMHx morbid obesity, GLORIA, COPD (on home O2), bipolar/PTSD, developmental delay, hypothyroidism, and seizure disorder transferred from OSH with volume o verload from core pulmonale 2/2 pulmonary hypertension. #pHTN/cor pulmonale/vol overload. Continue diuresis. PFTs with mild obstruction and overnig ht oximetry w/o sig desats. Per pulm, degree of pulm disease doesn't explain severe right-si ded pressures. TTE w/o e/o left-sided heart failure. They feel right heart cath could be use ful as further diagnostic. -appreciate pulm assistance -consult cards for possible RHC -scheduled 40mg IV lasix BID. Attempting to follow daily weights -f/u sleep medicine consult re: outpt sleep medicine study (results scanned in chart) #seizure - stable, last seizure- like event 05/04 -per neuro, c/w depakote 500 TID -per neuro and pharm, check trough level of depakote on 712 am prior to first dose #GLORIA - CPAP at night - outside sleep study records obtained -F/U with pulm team #. Resolved problems/stable outpt problems -UTI s/p tx with bactrim05/03-05/05 -COPD: mild obstruction per PFTs obtained here-FEV1- 59% ; FEV1/FVC- 68%/combivent -Bipolar disorder/PTSD -tob use- s/p smoking cessation consult/nicotine patch -hypothyroidism #. Weakness- PT/OT FEN:Regular DVT ppx: sqh Dispo: pending better optimization of fluid status, hopeful [facility] Code Status:} Full Code -:Interval Hx:- none -:Subjective:- No complaints -:Vitals:- Last Vitals: BP 104/64 | Pulse 80 | Temp 37.2 C (99 F) | RR 16 | Ht 1.499 m (4' 11") | Wt 105.7 kg (233 lb 0.4 oz) | SpO2 95% | BMI 47.04 kg/(m^2) O2 Delivery Device: Nasal cannula (05/09/13 0751) 24 Hour Vital Min/Max: Systolic (24hrs), Av mmHg, Min:104 mmHg, Max:121 mmHgDiastolic (24hrs), Av mmHg, M in:56 mmHg, Max:79 mmHgPulse Av Min: 78 Max: 90 Temp Av C (98.6 F) Min: 36.2 C (97.2 F) Max: 37.6 C (99.7 F) Resp Av Min: 16 Max: 16 SpO2 Av.4 % Min: 93 % Max: 96 % Intake/Output Summary (Last 24 hours) at 05/09/13 1321 Last data filed at 05/09/13 0000 Gross per 24 hour Intake 160 ml Output 375 ml (pt incontinent) Net -215 ml Weight- pending Current Inpatient Medications Medication Dose Route Frequency acetaminophen (aka TYLENOL) tablet 500 mg 500 mg Oral Q6H PRN albuterol (aka PROVENTIL, VENTOLIN) 90 mcg/actuation inhaler 2 Puff 2 Puff Inhalation QID ascorbic acid tablet 500 mg 500 mg Oral BID cholecalciferol (Vitamin D3) (aka VITAMIN D-3) tablet 2,000 Units 2,000 Units Oral MARIBELL LY divalproex DR (aka DEPAKOTE) tablet 500 mg 500 mg Oral TID docusate sodium (aka COLACE) capsule 50 mg 50 mg Oral DAILY ferrous sulfate tablet 325 mg total salt 325 mg total salt Oral BID folic acid (aka FOLVITE) tablet 1 mg 1 mg Oral DAILY furosemide (aka LASIX) injection 40 mg 40 mg Intravenous BID ( and ) gabapentin (aka NEURONTIN) tablet 600 mg 600 mg Oral TID heparin injection 5,000 Units 5,000 Units Subcutaneous Q8H levothyroxine tablet 137 mcg 137 mcg Oral DAILY loratadine (aka CLARITIN) tablet 10 mg 10 mg Oral DAILY nicotine (aka NICOTROL) 21 mg/24 hr patch 1 Patch 1 Patch Transdermal DAILY omeprazole (aka PRILOSEC) capsule 20 mg 20 mg Oral QAM PARoxetine (aka PAXIL) tablet 20 mg 20 mg Oral DAILY potassium chloride SR (aka K-DUR) tablet 40 mEq 40 mEq Oral ONCE risperiDONE (aka RISPERDAL) tablet 4 mg 4 mg Oral HS simvastatin (aka ZOCOR) tablet 20 mg 20 mg Oral QPM thiamine tablet 100 mg 100 mg Oral DAILY -:Examination:- (stable to prior, slowly improving AYDE) Gen: obese, pleasant, NAD. HEENT: JVP 2cm above clavicle when upright CV: rrr Pulm: clear anteriorly Abd: +bs, soft, nontender Ext: still sig pitting edema bl up to thighs, though legs have softened from admission -:Labs:- Recent Labs 05/02/13 2210 05/07/13 0752 05/08/13 0646 05/09/13 0718 WBC 8.5 < > 6.9 7.9 8.2 RBC 4.88 < > 4.84 5.04 5.06 HB 16.1* < > 16.0 16.8* 16.5* HCT 49.3* < > 49.0* 50.9* 50.6* PLT 153 < > 136* 130* 131* NEUTROPERC 82* -- -- -- -- LYMPHPERC 14* -- -- -- -- MONOPERC 4 -- -- -- -- BASOPERC 0 -- -- -- -- EOSPERC 0* -- -- -- -- < > = values in this interval not displayed. Recent Labs 05/07/13 0752 05/08/13 0646 05/09/13 0718 NA 142 139 139 K 4.4 4.1 3.9 CL 104 102 99 BICARB 28 26 30 BUN 17 18 20 CR 0.80 0.82 0.82 GLU 91 94 98 CA 8.7 8.8 9.3 AST 33 34 34 ALT 59 53 47 AP 154* 145* 133* TBILI 0.3 0.3 0.5 TP 6.3* 6.7 7.1 ALB 2.6* 2.7* 3.0* -:Imaging:- No new The patient was discussed with Dr. jiang who agrees with the assessment and plan. Cristine Freeman Internal Medicine Resident [phone] lements, Johan Farrar MD - 05/08/2013 2:00 PM PDT 4 GENERAL MEDICINE ATTENDING PROGRESS NOTE ADMIT DATE: 05/02/2013 8:40 PM TODAY'S DATE: 05/08/2013 (HOSPITAL DAY 6) I personally interviewed the patient, performed the beverly elements of the physical examinatio n, reviewed new lab data in EPIC, looked at any new radiology images and have developed an u pdated assessment and plan together with the 4 residents, Dr. Lopez/Lydia. Please see doctors' hospital housestaff notes for full details. I agree with their note with the following additions/ex ceptions. History: Exam: BP 108/60 | Pulse 82 | Temp 36.4 C (97.5 F) | RR 18 | Ht 1.499 m (4' 11") | Wt 105.7 kg (233 lb 0.4 oz) | SpO2 91% | BMI 47.04 kg/(m^2) Edema in the legs looks to be less than the day before JVP still difficult to see RRR Assessment and Plans Patient Active Hospital Problem List: 1) *Right heart failure due to pulmonary hypertension: Continue IV diuretics. I imagine kya still has 10-15L to give of extra water. Will discuss with Pulmonary if they feel she wou ld benefit from RHC prior to discharge to quantify pulmonary/heart pressures when she is dry as a baseline for her and for prognostic information. Main treatment will be CPAP and diur etics. 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 No acute overnight events. Subjective: Pt slightly drowsy this morning on exam, states she slept well. No complaints. Physical Examination: Last 24 hour min/max Temp: 36.4 C (97.5 F) Temp Min: 36.2 C (97.2 F) Max: 37.1 C (98.8 F) Pulse: 82 Pulse Min: 77 Max: 86 Resp: 18 Resp Min: 18 Max: 20 BP: 108/60 mmHg BP Min: 92/54 Max: 122/74 SpO2: 91 % SpO2 Min: 91 % Max: 94 % Body mass index is 47.04 kg/(m^2). Intake/Output Summary (Last 24 hours) at 05/08/13 1127 Last data filed at 05/08/13 0945 Gross per 24 hour Intake 1765 ml Output 4750 ml Net -2985 ml General Appearance: Pleasant female with NC in NAD HEENT: EOMI Neck: JVP difficult to assess Cardiovascular: normal S1/S2, RRR, no m/r/g Respiratory: bibasilar crackles, no wheezes Gastrointestinal: soft, NT, ND, obese Skin: warm, dry Extremities: significant LE edema B/L, though improved from admission and days prior Neurologic: no gross neurological deficits noted Psychiatric: appropriate mood and affect, friendly Current Medications: Current Inpatient Medications Medication Dose Route Frequency acetaminophen (aka TYLENOL) tablet 500 mg 500 mg Oral Q6H PRN albuterol (aka PROVENTIL, VENTOLIN) 90 mcg/actuation inhaler 2 Puff 2 Puff Inhalation Q4H PRN albuterol-ipratropium (aka COMBIVENT) inhaler 2 Puff 2 Puff Inhalation QID ascorbic acid tablet 500 mg 500 mg Oral BID cholecalciferol (Vitamin D3) (aka VITAMIN D-3) tablet 2,000 Units 2,000 Units Oral MARIBELL LY divalproex ER (aka DEPAKOTE ER) tablet 1,500 mg 1,500 mg Oral DAILY docusate sodium (aka COLACE) capsule 50 mg 50 mg Oral DAILY ferrous sulfate tablet 325 mg total salt 325 mg total salt Oral BID folic acid (aka FOLVITE) tablet 1 mg 1 mg Oral DAILY furosemide (aka LASIX) injection 40 mg 40 mg Intravenous BID ( and ) gabapentin (aka NEURONTIN) tablet 600 mg 600 mg Oral TID heparin injection 5,000 Units 5,000 Units Subcutaneous Q8H levothyroxine tablet 137 mcg 137 mcg Oral DAILY loratadine (aka CLARITIN) tablet 10 mg 10 mg Oral DAILY nicotine (aka NICOTROL) 21 mg/24 hr patch 1 Patch 1 Patch Transdermal DAILY omeprazole (aka PRILOSEC) capsule 20 mg 20 mg Oral QAM PARoxetine (aka PAXIL) tablet 20 mg 20 mg Oral DAILY pneumococcal (23-valent) polysaccharide vaccine (aka PNEUMOVAX) injection 0.5 mL 0.5 m L Intramuscular ONE TIME IN THE MORNING risperiDONE (aka RISPERDAL) tablet 4 mg 4 mg Oral HS simvastatin (aka ZOCOR) tablet 20 mg 20 mg Oral QPM thiamine tablet 100 mg 100 mg Oral DAILY Laboratory Interpretation: PFTs: FEV1: 59, FEV1/FVC: 84, poor inspiratory loops, PEFs not consistent, but FEV was cons istent Lab Results Component Value Date NA 139 05/08/2013 K 4.1 05/08/2013 CL 102 05/08/2013 BICARB 26 05/08/2013 BUN 18 05/08/2013 CR 0.82 05/08/2013 GLU 94 05/08/2013 CA 8.8 05/08/2013 AST 34 05/08/2013 ALT 53 05/08/2013 AP 145 05/08/2013 TBILI 0.3 05/08/2013 TP 6.7 05/08/2013 ALB 2.7 05/08/2013 Lab Results Component Value Date WBC 7.9 05/08/2013 HB 16.8 05/08/2013 HCT 50.9 05/08/2013 PLT 130 05/08/2013 MCV 101.0 05/08/2013 RDW 16.2 05/08/2013 Imaging Interpretation: None. Assessment and Plan Keo Rowley is a 47 y/o F with PMHx morbid obesity, GLORIA, COPD (on home O2), bipolar/PTSD, developmental delay, hypothyroidism, HLD, and seizure disorder (on AED's), transferred from OSH after referral from PCP after presenting with worsening edema and dyspnea with subsequen t echo showing pHTN per report. Pt has not had any witnessed seizure activity in the last 48 hours and is clinically stable. #pHTN, RH failure, volume overload - still +2 pitting edema, mildly improved -scheduled 40mg IV lasix BID -wean down O2 to sats >92, currently on 4L NC due to physical activity -F/U pulm oximetry study and consult to sleep medicine re: CPAP settings and outpt optimiz ation -continue to monitor UOP with daily weights #seizure - stable -per neuro, change to depakote 500 TID as difficult to obtain accurate level with extended release -per neuro and pharm, check trough level of depakote on 7/12 am prior to first dose -continue gabapentin 600mg TID #UTI - resolved -to prevent hospital acquired UTI, remove amezcua catheter #GLORIA - CPAP at night - outside sleep study records obtained -F/U with pulm team #mordid obesity #Bipolar disorder/PTSD -paxil 20mg PO qdaily -risperdal 4mg PO qbedtime #COPD/smoking -patient counseled on importance of smoking cessation to improve breathing -nicotine patch -combivent inhaler 2 puff QID #hypothyroidism -levothyroxine 137mcg PO qdaily Agus Jiang MD saw and evaluated this patient and aggress with my assessment and plan as documented above. Jessica Lopez MD Anesthesiology, PGY-1 Pager [phone] lements, Agus Farrar MD - 05/07/2013 4:36 PM PDT 4 GENERAL MEDICINE ATTENDING PROGRESS NOTE ADMIT DATE: 05/02/2013 8:40 PM TODAY'S DATE: 05/07/2013 (HOSPITAL DAY 5) I personally interviewed the patient, performed the beverly elements of the physical examinatio n, reviewed new lab data in EPIC, looked at any new radiology images and have developed an u pdated assessment and plan together with the 4 residents, Dr. Lopez/Lydia. Please see e housestaff notes for full details. I agree with their note with the following additions/ex ceptions. History: Pt says her breathing continues to improve, nurses able to wean oxygen needs a bit. Exam: BP 122/74 | Pulse 80 | Temp 36.2 C (97.2 F) | RR 18 | Ht 1.499 m (4' 11") | Wt 105.7 kg (233 lb 0.4 oz) | SpO2 94% | BMI 47.04 kg/(m^2) No distress JVP above the clavicle but exact height difficult to determine due to neck size LUNGS distant sounding, but no respiratory distress HEART: regular, 2+ LE edema persists Assessment and Plans Patient Active Hospital Problem List: 1) *Right heart failure due to pulmonary hypertension: -Continue IV diuretics 40mg BID, daily bmp to follow K -Attempt PFT's today to see if she has evidence of intrinsic lung disease -Will keep as an inpatient until she is euvolemic -Work with Pulmonary team to optimize her CPAP settings as an outpatient. 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 Medicine Department of Internal Medicine [facility] DEPARTMENT: Hosp- [id number] Place of Service: IP - Date of Service: 05/07/2013 CSN: [id number] Modifiers:GC Resident Involved: Yes Suggested CPT: 63392 Subsequent Visit Exp Prob Foc/Mod Complexity 25 min azo, Too Bruno MD - 05/07/2013 3:53 PM PDT General Internal Medicine 4 Resident Progress Note Hospital Day:5 Author; TOO LOPEZ MD Attending Physician: Agus Jiang MD 24 Hour Events: No acute overnight events. Subjective: Pt was drowsy this morning when I spoke with her and examined her. She had no complaints th is morning. She denied chest pain, nausea, vomiting. She thinks her breathing has improved. Physical Examination: Last 24 hour min/max Temp: 36.2 C (97.2 F) Temp Min: 36.2 C (97.2 F) Max: 36.7 C (98.1 F) Pulse: 80 Pulse Min: 76 Max: 80 Resp: 18 Resp Min: 16 Max: 18 BP: 122/74 mmHg BP Min: 114/61 Max: 124/47 SpO2: 94 % SpO2 Min: 93 % Max: 94 % Body mass index is 47.04 kg/(m^2). Intake/Output Summary (Last 24 hours) at 05/07/13 1553 Last data filed at 05/07/13 1200 Gross per 24 hour Intake 970 ml Output 2700 ml Net -1730 ml General Appearance: Drowsy female, but cooperative and pleasant, lying in bed HEENT: EOMI Neck: JVP difficult to assess Cardiovascular: normal S1/S2, RRR, no m/r/g Respiratory: bibasilar crackles Gastrointestinal: soft, NT, ND, obese, +bowel sounds Skin: warm, dry Extremities: +2 edema in LE B/L up to mid thigh, albeit improved from yesterday Psychiatric: appropriate mood and affect Current Medications: Current Inpatient Medications Medication Dose Route Frequency acetaminophen (aka TYLENOL) tablet 500 mg 500 mg Oral Q6H PRN albuterol (aka PROVENTIL, VENTOLIN) 90 mcg/actuation inhaler 2 Puff 2 Puff Inhalation Q4H PRN albuterol-ipratropium (aka COMBIVENT) inhaler 2 Puff 2 Puff Inhalation QID ascorbic acid tablet 500 mg 500 mg Oral BID cholecalciferol (Vitamin D3) (aka VITAMIN D-3) tablet 2,000 Units 2,000 Units Oral MARIBELL LY divalproex ER (aka DEPAKOTE ER) tablet 1,500 mg 1,500 mg Oral DAILY docusate sodium (aka COLACE) capsule 50 mg 50 mg Oral DAILY ferrous sulfate tablet 325 mg total salt 325 mg total salt Oral BID folic acid (aka FOLVITE) tablet 1 mg 1 mg Oral DAILY furosemide (aka LASIX) injection 40 mg 40 mg Intravenous BID () gabapentin (aka NEURONTIN) tablet 600 mg 600 mg Oral TID heparin injection 5,000 Units 5,000 Units Subcutaneous Q8H levothyroxine tablet 137 mcg 137 mcg Oral DAILY loratadine (aka CLARITIN) tablet 10 mg 10 mg Oral DAILY nicotine (aka NICOTROL) 21 mg/24 hr patch 1 Patch 1 Patch Transdermal DAILY omeprazole (aka PRILOSEC) capsule 20 mg 20 mg Oral QAM PARoxetine (aka PAXIL) tablet 20 mg 20 mg Oral DAILY pneumococcal (23-valent) polysaccharide vaccine (aka PNEUMOVAX) injection 0.5 mL 0.5 m L Intramuscular ONE TIME IN THE MORNING risperiDONE (aka RISPERDAL) tablet 4 mg 4 mg Oral HS simvastatin (aka ZOCOR) tablet 20 mg 20 mg Oral QPM thiamine tablet 100 mg 100 mg Oral DAILY Laboratory Interpretation: CBC with diff last 72 hours (or 3 results) Recent Labs 05/05/1334 05/06/13 0742 05/07/13 0752 WBC 4.8 5.0 6.9 HB 14.6 15.3 16.0 HCT 45.1 47.4* 49.0* PLT 132* 133* 136* Recent Labs 05/05/1334 05/06/13 0742 05/07/13 0752 NA 143 141 142 K 4.0 3.9 4.4 CL 106 103 104 BICARB 29 30 28 BUN 15 16 17 CR 0.71 0.89 0.80 GLU 87 90 91 CA 8.6 8.8 8.7 AST 48* 34 33 ALT 84* 70* 59 AP 181* 167* 154* TBILI 0.2* 0.2* 0.3 TP 5.8* 6.0* 6.3* ALB 2.6* 2.5* 2.6* Labs: Lab Results Component Value Date MG 1.9 05/07/2013 Ammonia: 76 EEG Report on 05/04: Interictal Record: The record shows a symmetric, well-modulated, posterior dominant rhythm of 8.5 Hz that attenuates with eye opening. Photic stimulation results in a symmetric photic driving response. Hyperventilation is not performed. The drowsy state is recorded, characterized by additional delta frequency slowing and drop-out of eye blink and myogenic artifact. Sleep architecture is not present. Events/Seizures: No events or seizures are recorded. EKG: The single-channel EKG recording shows a normal sinus rhythm. Interpretation: This is a normal awake and drowsy EEG. A normal routine EEG does not rule out a clinical diagnosis of epilepsy. Imaging Interpretation: None. Assessment and Plan Keo Rowley is a 47 y/o F with PMHx morbid obesity, GLORIA, COPD (on home O2), bipolar/PTSD, developmental delay, hypothyroidism, HLD, and seizure disorder (on AED's), transferred from OSH after referral from PCP after presenting with worsening edema and dyspnea with subsequen t echo showing pHTN per report. Pt has not had any witnessed seizure activity in the last 24 hours and is clinically stable. #dyspnea - likely due to pulmonary HTN and RH failure - still +2 pitting edema, mildly impr shivam -given 40mg IV lasix this AM, follow-up I/Os - net goal of neg 1.5L -wean down O2 to sats >92, currently on 2L NC #pulmonary HTN and cor pulmonale - likely RHF due to pHTN -patient scheduled for PFTs today at 3pm - F/U results #seizure - ammonia and LFTs trending downward -maintain depakote to 1500mg PO qdaily per neuro -F/U neuro recs -continue gabapentin 600mg TID #UTI - resolved #GLORIA - CPAP at night - outside sleep study records obtained -consider sleep medicine consult per pulm -spoke with Dr. Alexander Hays and told pulm team would need to perform overnight oxymetry st udy prior to Dr. Hays's consult -F/U with pulm team #mordid obesity #Bipolar disorder/PTSD -paxil 20mg PO qdaily -risperdal 4mg PO qbedtime #COPD/smoking -patient counseled on importance of smoking cessation to improve breathing -nicotine patch -combivent inhaler 2 puff QID #hypothyroidism -levothyroxine 137mcg PO qdaily Agus Jiang MD saw and evaluated this patient and aggress with my assessment and plan as documented above. Jessica Lopez MD Anesthesiology, PGY-1 Pager [phone] lechano, Agus Farrar MD - 05/06/2013 7:47 PM PDT 4 GENERAL MEDICINE ATTENDING PROGRESS NOTE ADMIT DATE: 05/02/2013 8:40 PM TODAY'S DATE: 05/06/2013 (HOSPITAL DAY 4) I personally interviewed the patient, performed the beverly elements of the physical examinatio n, reviewed new lab data in EPIC, looked at any new radiology images and have developed an u pdated assessment and plan together with the 4 residents, Dr. Lopez/Lydia. Please see doctors' hospital housestaff notes for full details. I agree with their note with the following additions/ex ceptions. History: Exam: BP 102/55 | Pulse 72 | Temp 36.6 C (97.9 F) | RR 16 | Ht 1.499 m (4' 11") | Wt 105.7 kg (233 lb 0.4 oz) | SpO2 95% | BMI 47.04 kg/(m^2) No distress JVP difficult to assess [place] edema still present in the legs. Assessment and Plans Patient Active Hospital Problem List: 1) *Right heart failure due to pulmonary hypertension: -continued inpatient care for IV diuretics. Plan to diurese until euvolemic. Follow daily bmp -try to get PFT's tomorrow to look for intrinsic lung disease, I have some doubts that her mental capabilities will allow her to participate fully in the PFT's. Will request the form al report from the sleep study tomorrow. 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 Subjective: This morning, pt had no complaints. Reports that she has been sleeping a lot and is otherwi se fine. Physical Examination: Last 24 hour min/max Temp: 36.6 C (97.9 F) Temp Min: 36 C (96.8 F) Max: 36.6 C (97.9 F) Pulse: 72 Pulse Min: 63 Max: 78 Resp: 16 Resp Min: 16 Max: 18 BP: 102/55 mmHg BP Min: 96/54 Max: 125/62 SpO2: 95 % SpO2 Min: 90 % Max: 100 % Body mass index is 47.04 kg/(m^2). Intake/Output Summary (Last 24 hours) at 05/06/13 1538 Last data filed at 05/06/13 1435 Gross per 24 hour Intake 1621 ml Output 5225 ml Net -3604 ml General Appearance: Pleasant, sleepy female in NAD on supplemental O2 3LNC HEENT: EOMI Neck: JVP difficult to assess Cardiovascular: normal S1/S2, RRR, no m/r/g Respiratory: some crackles heard at bases of lungs b/l Gastrointestinal: soft, NT, ND, + bowel sounds, obese Skin: dry, warm Extremities: +2 pitting edema in LE B/L up to mid thigh Psychiatric: appropriate and cooperative Current Medications: Current Inpatient Medications Medication Dose Route Frequency acetaminophen (aka TYLENOL) tablet 500 mg 500 mg Oral Q6H PRN albuterol (aka PROVENTIL, VENTOLIN) 90 mcg/actuation inhaler 2 Puff 2 Puff Inhalation Q4H PRN albuterol-ipratropium (aka COMBIVENT) inhaler 2 Puff 2 Puff Inhalation QID ascorbic acid tablet 500 mg 500 mg Oral BID cholecalciferol (Vitamin D3) (aka VITAMIN D-3) tablet 2,000 Units 2,000 Units Oral MARIBELL LY divalproex ER (aka DEPAKOTE ER) tablet 1,500 mg 1,500 mg Oral DAILY docusate sodium (aka COLACE) capsule 50 mg 50 mg Oral DAILY ferrous sulfate tablet 325 mg total salt 325 mg total salt Oral BID folic acid (aka FOLVITE) tablet 1 mg 1 mg Oral DAILY gabapentin (aka NEURONTIN) tablet 600 mg 600 mg Oral TID heparin injection 5,000 Units 5,000 Units Subcutaneous Q8H levothyroxine tablet 137 mcg 137 mcg Oral DAILY loratadine (aka CLARITIN) tablet 10 mg 10 mg Oral DAILY nicotine (aka NICOTROL) 21 mg/24 hr patch 1 Patch 1 Patch Transdermal DAILY omeprazole (aka PRILOSEC) capsule 20 mg 20 mg Oral QAM PARoxetine (aka PAXIL) tablet 20 mg 20 mg Oral DAILY risperiDONE (aka RISPERDAL) tablet 4 mg 4 mg Oral HS simvastatin (aka ZOCOR) tablet 20 mg 20 mg Oral QPM thiamine tablet 100 mg 100 mg Oral DAILY Laboratory Interpretation: Lab Results Component Value Date WBC 5.0 05/06/2013 HB 15.3 05/06/2013 HCT 47.4 05/06/2013 PLT 133 05/06/2013 MCV 101.1 05/06/2013 RDW 16.2 05/06/2013 Lab Results Component Value Date NA 141 05/06/2013 K 3.9 05/06/2013 CL 103 05/06/2013 BICARB 30 05/06/2013 BUN 16 05/06/2013 CR 0.89 05/06/2013 GLU 90 05/06/2013 CA 8.8 05/06/2013 AST 34 05/06/2013 ALT 70 05/06/2013 AP 167 05/06/2013 TBILI 0.2 05/06/2013 TP 6.0 05/06/2013 ALB 2.5 05/06/2013 Mg 1.9 Ammonia: 73 <-- 105 <-- 84 Imaging Interpretation: None. Assessment and Plan Keo Rowley is a 47 y/o F with PMHx morbid obesity, GLORIA, COPD (on home O2), bipolar/PTSD, developmental delay, hypothyroidism, HLD, and seizure disorder (on AED's), transferred from OSH after referral from PCP after presenting with worsening edema and dyspnea with subsequen t echo showing pHTN per report. Pt has not had any witnessed seizure activity in the last 24 hours and is clinically stable. #dyspnea - likely due to pulmonary HTN and RH failure - still +2 pitting edema, mildly impr shivam -given 40mg IV lasix this AM, follow-up I/Os - net goal of neg 1.5L (goal met yesterday) -wean down O2 to sats >92, currently on 3L NC #pulmonary HTN and cor pulmonale - echo suggestive of pHTN -pulm requests PFTs prior to consideration of RHCath - scheduled for TueMay 07 #seizure - ammonia and LFTs trending downward -maintain depakote to 1500mg PO qdaily per neuro -F/U neuro notes --F/U EEG report -continue gabapentin 600mg TID -tramadol and wellbutrin DC'd due to lowering seizure threshold #UTI - per results of UA and micro urine, despite NEG urine cx -resolved -finished cipro 250mg PO BID for 3 day course - day 3 of 3 #GLORIA - CPAP at night -consider sleep medicine consult per pulm -obtain outside sleep records #mordid obesity #Bipolar disorder/PTSD -paxil 20mg PO qdaily -risperdal 4mg PO qbedtime #COPD/smoking -nicotine patch -combivent inhaler 2 puff QID #hypothyroidism -levothyroxine 137mcg PO qdaily Agus Jiang MD saw and evaluated this patient and aggress with my assessment and plan as documented above. Jessica Lopez MD Anesthesiology, PGY-1 Pager [phone] Agus Sandoval MD - 05/05/2013 2:15 PM [facility] 4 GENERAL MEDICINE ATTENDING PROGRESS NOTE ADMIT DATE: 05/02/2013 8:40 PM TODAY'S DATE: 05/05/2013 (HOSPITAL DAY 3) I personally interviewed the patient, performed the beverly elements of the physical examinatio n, reviewed new lab data in EPIC, looked at any new radiology images and have developed an u pdated assessment and plan together with the 4 residents, Dr. Lopez/Lydia. Please see e housestaff notes for full details. I agree with their note with the following additions/ex ceptions. Exam: BP 127/64 | Pulse 65 | Temp 36.7 C (98.1 F) | RR 20 | Ht 1.499 m (4' 11") | Wt 105.7 kg (233 lb 0.4 oz) | SpO2 96% | BMI 47.04 kg/(m^2) Still with pitting edema. Neck veins are modestly elevated, but difficult to appreciate to day. Lungs sound clear, but distant sounding due to body habitus. Patient Active Hospital Problem List: 1) *Right heart failure due to pulmonary hypertension: TTE here confirms elevated right si ded pressures. CTA of chest reviewed from february, No evidence of chronic PE. No evidence of emphysema. PAH seems most likely due to GLORIA. Will get PFT's this week to look for an obstr uctive pattern that would speak to chronic lung disease. Will work to get outside records o f the sleep study for review. Appreciate pulm following. -Continue diuresis -initiate afterload if blood pressure will tolerate. 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 No other seizure activity reported la night. Subjective: Pt slept comfortably last night and has no complaints this morning. Denies chest pain, feve rs, chills. Reports slightly easier breathing. Physical Examination: Last 24 hour min/max Temp: 36.7 C (98.1 F) Temp Min: 36.1 C (97 F) Max: 36.7 C (98.1 F) Pulse: 70 Pulse Min: 63 Max: 70 Resp: 20 Resp Min: 18 Max: 22 BP: 127/64 mmHg BP Min: 91/39 Max: 137/53 SpO2: 91 % SpO2 Min: 91 % Max: 97 % Body mass index is 47.04 kg/(m^2). Intake/Output Summary (Last 24 hours) at 05/05/13 1123 Last data filed at 05/05/13 1000 Gross per 24 hour Intake 1080 ml Output 0 ml Net 1080 ml General Appearance: Pleasant, cooperative female in NAD HEENT: EOMI Cardiovascular: normal S1/S2, RRR, no m/r/g Respiratory: difficult to assess due to body habitus, CTA B/L anteriorly, speaking in full sentences, on 5LNC Gastrointestinal: soft, NT, ND, obese Extremities: 2+ pitting edema in LE B/L Psychiatric: appropriate mood and affect Current Medications: Current Inpatient Medications Medication Dose Route Frequency acetaminophen (aka TYLENOL) tablet 500 mg 500 mg Oral Q6H PRN albuterol (aka PROVENTIL, VENTOLIN) 90 mcg/actuation inhaler 2 Puff 2 Puff Inhalation Q4H PRN albuterol-ipratropium (aka COMBIVENT) inhaler 2 Puff 2 Puff Inhalation QID ascorbic acid tablet 500 mg 500 mg Oral BID cholecalciferol (Vitamin D3) (aka VITAMIN D-3) tablet 2,000 Units 2,000 Units Oral MARIBELL LY ciprofloxacin (aka CIPRO) tablet 250 mg 250 mg Oral BID divalproex ER (aka DEPAKOTE ER) tablet 1,500 mg 1,500 mg Oral DAILY docusate sodium (aka COLACE) capsule 50 mg 50 mg Oral DAILY ferrous sulfate tablet 325 mg total salt 325 mg total salt Oral BID folic acid (aka FOLVITE) tablet 1 mg 1 mg Oral DAILY gabapentin (aka NEURONTIN) tablet 600 mg 600 mg Oral TID heparin injection 5,000 Units 5,000 Units Subcutaneous Q8H levothyroxine tablet 137 mcg 137 mcg Oral DAILY loratadine (aka CLARITIN) tablet 10 mg 10 mg Oral DAILY nicotine (aka NICOTROL) 21 mg/24 hr patch 1 Patch 1 Patch Transdermal DAILY omeprazole (aka PRILOSEC) capsule 20 mg 20 mg Oral QAM PARoxetine (aka PAXIL) tablet 20 mg 20 mg Oral DAILY risperiDONE (aka RISPERDAL) tablet 4 mg 4 mg Oral HS simvastatin (aka ZOCOR) tablet 20 mg 20 mg Oral QPM thiamine tablet 100 mg 100 mg Oral DAILY Laboratory Interpretation: Chemistries: Last 72 Hours (or 3 results): Recent Labs 05/03/13 0735 05/03/13 1832 05/04/13 0655 05/04/13 1715 05/05/13 0734 05/05/13 1008 NA 140 141 144 -- 143 -- K 4.1 4.0 3.8 -- 4.0 -- CL 103 104 106 -- 106 -- BICARB 24 27 28 -- 29 -- BUN 27* 25* 20 -- 15 -- CR 0.85 0.85 0.78 -- 0.71 -- GLU 91 131* 84 120* 87 -- CA 8.4* 8.0* 8.1* -- 8.6 -- MG -- 1.9 -- -- -- 2.0 CBC with diff last 72 hours (or 3 results) Recent Labs 05/02/13 2210 05/03/13 0735 05/04/13 0655 05/05/13 0734 WBC 8.5 7.8 5.9 4.8 HB 16.1* 14.7 14.2 14.6 HCT 49.3* 45.6 43.1 45.1 PLT 153 152 129* 132* NEUTROPERC 82* -- -- -- LYMPHPERC 14* -- -- -- MONOPERC 4 -- -- -- BASOPERC 0 -- -- -- EOSPERC 0* -- -- -- Liver Tests: Last 72 hours (or 3 results) Recent Labs 05/03/13 0735 05/04/13 0655 05/04/13 0940 05/05/13 0734 AST 75* 66* -- 48* ALT 102* 98* -- 84* TBILI 0.3 0.2* -- 0.2* AP 209* 200* -- 181* ALB 2.6* 2.5* 2.7* 2.6* TP 6.2* 5.8* -- 5.8* Negative Urine Cx Negative Hep C Ammonia: 105 <-- 84 03/27/13 EEG: IMPRESSION This EEG is mildly abnormal. Occasional mild diffuse slowing was seen during wakefulness as described above. This may be consistent with a mild global encephalopathy which is nonspecific as to etiology. It is also possible that the slowing could be related in part to drowsiness, as the patient was noted to be drowsy (and sleeping) for much of the recording. No epileptiform activity is seen. No seizures were seen. There was no evidence of status epilepticus. Imaging Interpretation: 05/04 Echocardiogram - EF of 60-65%, dilated RA and RV, mild TR, suggestive of pHTN, small pe ricardial effusion Outside imaging - 03/27/13 CTA Chest - NEG for PE, small R pleural effusion, small pericardi al effusion 03/27/13 Brain MRI - only pertinent for small vessel disease, no masses, lesions Assessment and Plan Ms. Rowley is a 47 year old female with PMHx morbid obesity, GLORIA, COPD (on home O2), bipolar /PTSD, developmental delay, hypothyroidism, HLD, and seizure disorder (on AED's), transferre d from OSH after referral from PCP after presenting with worsening edema and dyspnea with allen bsequent echo showing pHTN per report. Pt has had seizure-like activity x2 in the past two d ays, but is clinically stable. #dyspnea - likely due to pulmonary HTN and RH failure - still +2 pitting edema, mildly impr shivam -given 40mg IV lasix this AM, follow-up I/Os - net goal of neg 1-2L -wean down O2 to sats >92 #pulmonary HTN and cor pulmonale - echo suggestive of pHTN -pulm requests PFTs prior to consideration of RHCath #seizure -increase depakote to 1500mg PO qdaily per neuro -F/U ammonia and LFTs -F/U EEG report -continue gabapentin 600mg TID -tramadol and wellbutrin DC'd due to lowering seizure threshold #UTI - per results of UA and micro urine, despite NEG urine cx -finish cipro 250mg PO BID for 3 day course - day 3 of 3 #GLORIA - CPAP at night -consider sleep medicine consult per pulm #mordid obesity #Bipolar disorder/PTSD -paxil 20mg PO qdaily -risperdal 4mg PO qbedtime #COPD/smoking -nicotine patch -combivent inhaler 2 puff QID #hypothyroidism -levothyroxine 137mcg PO qdaily Agus Jiang MD saw and evaluated this patient and aggress with my assessment and plan as documented above. Jessica Lopez MD Anesthesiology, PGY-1 Pager [phone] Jay Jay Howell MD - 05/04/2013 5:22 PM PDTSignificant Event: Pt had another seizure-like event at 5pm today. Nurse and caregiver (Tila) were in the ro om, and endorsed mild shaking with her eyes open. They then reported her eyes rolled to the back of her head. She was confused and non-verbal for the minutes following the event. I arrived and found her in her chair, non-verbal but in NAD. VSS. Earlier today, phenytoin and valproate levels subtherapeutic. Neuro recommended dc of phen ytoin and increasing divalproex to 1500mg daily. A/P: - Per neuro recs, will dc phenytoin and increase divalproex to 1500mg daily - Will give depakote 500mg po x1 now Jay Jay Grimaldo MD Internal Medicine, PGY-3 Pager [phone] Deion Lomeli - 2012 4:52 PM PDTTransthoracic echocardiogram completed. Final report to follow. lechano, Agus Farrar MD - 05/04 1:35 PM PDT 4 GENERAL MEDICINE ATTENDING PROGRESS NOTE ADMIT DATE: 05/02/2013 8:40 PM TODAY'S DATE: 05/04/2013 (HOSPITAL DAY 2) I personally interviewed the patient, performed the beverly elements of the physical examinatio n, reviewed new lab data in EPIC, looked at any new radiology images and have developed an u pdated assessment and plan together with the 4 residents, Dr. Lopez/Dillan. Please see the doctors hospital notes for full details. I agree with their note with the following additions/excep tions. Pt had a seizure yesterday She says she is breathing fine today. Exam: BP 119/65 | Pulse 63 | Temp 36.1 C (97 F) | RR 18 | Ht 1.499 m (4' 11") | Wt 106.9 kg ( 235 lb 10.8 oz) | SpO2 96% | BMI 47.57 kg/(m^2) JVD appears to flutter at the earlobe while sitting upright, but her thick neck makes this difficult to see for certain Heart: RRR, there is still physiologic split S2 with deep breathing. Patient Active Hospital Problem List: 1) *Dyspnea 2) Pulmonary hypertension: Still not confirmed by RHC. likely primarily WHO group 3 due to GLORIA, smoking hx (need to try and get PFT's), obesity hypoventilation syndrome. However may have some group 2 if her diastolic dysfunction is severe enough. A RHC would be helpful to see how high the wedge is and then to consider if there will be any treatment available to er besides CPAP compliance, diuresis and smoking cessation. 3) Cor pulmonale, chronic: Continue diuresis, gently though. IF BP holds despite diuresis , will try to add some afterload reduction with either lisinopril or hydralazine. 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 Division of Hospital Medicine Department of Internal Medicine [facility] DEPARTMENT: Hosp- [id number] Place of Service: IP - [id number] Date of Service: 05/04/2013 CSN: [id number] Modifiers:GC Resident Involved: Yes Suggested CPT: 33531 Subsequent Visit Exp Prob Foc/Mod Complexity 25 min ao, Daniel Tobar MD - 05/04/2013 8:47 AM PDT Neurology Follow Up Note Author: RAYNE HAMLIN MD Attending: Agus Jiang MD Date: 05/04/2013 8:48 AM Patient: Keo Rowley Hospital Day: 2 ID: Keo Rowley is a 47 yo female with a PMH of pulmonary HTN, morbid obesity, COPD, HTN, bipolar disorder/PTSD and seizure disorder consulted for possible seizure. 24 Hr Events: - seizure lasting 20-30 seconds, post-ictal Subjective: Ms. Rowley reports that she was told she had another event yesterday, but she d oes not remember having the seizure, but states that she was confused after it happened. She denies injury from the seizure. She is unable to identify any factors that contribute to th e events. Complains of blurry vision when she watches TV, but denies association with seizur e activity. Denies headache, fever, chills, diaphoresis, chest pain, nausea, vomiting, diar rohan, numbness, tingling, weakness and confusion. No acute complaints. Objective: BP 112/64 | Pulse 63 | Temp 36.6 C (97.9 F) | RR 18 | Ht 1.499 m (4' 11") | Wt 106.9 kg (235 lb 10.8 oz) | SpO2 94% | BMI 47.57 kg/(m^2) Systolic (24hrs), Av mmHg, Min:94 mmHg, Max:120 mmHg Diastolic (24hrs), Av mmHg, Min:50 mmHg, Max:64 mmHg Pulse Min: 63 Max: 78 Temp Min: 36.6 C (97.9 F) Max: 36.8 C (98.2 F) Resp Min: 18 Max: 18 SpO2 Min: 92 % Max: 96 % Physical Exam: General Medical Examination: General Appearance: NAD Abdomen: soft non-tender, no rebound Neurologic exam: Mentation: Normal activity, appropriate appearance. Level of consciousness: Awake, alert and oriented x3. Neglect: Responds to bilateral stimulus. Spells "WORLD" backwards and forwards Repeats 3 step tasks, which cross the midline without difficulty. Speech: Fluent. Appropriate. Repeats simple and complex phrases. No dysarthria, no aphasia. Cranial Nerves: II: PERRL, visual vasquez full to confrontation bilaterally. III, IV, : Gaze conjugate, EOMI. No nystagmus. No diplopia. V: Sensation intact and symmetric to light touch V1-V3 VII: Symmetric facial motor function bilaterally VIII: Intact to finger rub bilaterally XI: Normal shrug bilaterally XII: Tongue protrudes midline Motor: Normal tone. Normal bulk. No abnormal movements or twitching No pronator drift bilaterally Delt Tri Bi WE WF DI HF HE KF KE APF ADF Left 5 5 5 5 5 5 5 - 5 5 5 5 Right 5 5 5 5 5 5 5 - 5 5 5 5 Sensation: Light touch: Intact and symmetric in the bilateral upper and lower extremities. DTRs: Biceps Triceps Brachioradialis Knee Ankle Left 3+ 3+ 3+ 3+ 3+ Right 3+ 3+ 3+ 3+ 3+ Plantar response: Downgoing bilaterally Coordination: Finger to nose is of normal speed, no action tremor, and no end-point dysmetria Fine finger movements are of normal speed and fluency Heel to gamboa unable to perform due to patient's body habitus. Rapid alternating movements are of normal speed and fluency Gait/Romberg: Unable to perform due to patient's current condition, will assess at a later time. Pertinent Labs: Lab Results Component Value Date NA 144 05/04/2013 K 3.8 05/04/2013 CL 106 05/04/2013 BICARB 28 05/04/2013 BUN 20 05/04/2013 CR 0.78 05/04/2013 GLU 84 05/04/2013 CA 8.1 05/04/2013 AST 66 05/04/2013 ALT 98 05/04/2013 AP 200 05/04/2013 TBILI 0.2 05/04/2013 TP 5.8 05/04/2013 ALB 2.5 05/04/2013 Lab Results Component Value Date WBC 5.9 05/04/2013 HB 14.2 05/04/2013 HCT 43.1 05/04/2013 PLT 129 05/04/2013 MCV 101.8 05/04/2013 RDW 16.1 05/04/2013 Current Inpatient Medications Medication Dose Route Frequency acetaminophen (aka TYLENOL) tablet 500 mg 500 mg Oral Q6H PRN albuterol (aka PROVENTIL, VENTOLIN) 90 mcg/actuation inhaler 2 Puff 2 Puff Inhalation Q4H PRN albuterol-ipratropium (aka COMBIVENT) inhaler 2 Puff 2 Puff Inhalation QID ascorbic acid tablet 500 mg 500 mg Oral BID cholecalciferol (Vitamin D3) (aka VITAMIN D-3) tablet 2,000 Units 2,000 Units Oral MARIBELL LY ciprofloxacin (aka CIPRO) tablet 250 mg 250 mg Oral BID divalproex DR (aka DEPAKOTE) tablet 500 mg 500 mg Oral DAILY docusate sodium (aka COLACE) capsule 50 mg 50 mg Oral DAILY ferrous sulfate tablet 325 mg total salt 325 mg total salt Oral BID furosemide (aka LASIX) injection 40 mg 40 mg Intravenous ONCE gabapentin (aka NEURONTIN) tablet 600 mg 600 mg Oral TID heparin injection 5,000 Units 5,000 Units Subcutaneous Q8H levothyroxine tablet 137 mcg 137 mcg Oral DAILY loratadine (aka CLARITIN) tablet 10 mg 10 mg Oral DAILY nicotine (aka NICOTROL) 21 mg/24 hr patch 1 Patch 1 Patch Transdermal DAILY omeprazole (aka PRILOSEC) capsule 20 mg 20 mg Oral QAM PARoxetine (aka PAXIL) tablet 20 mg 20 mg Oral DAILY phenytoin ER (aka DILANTIN) capsule 100 mg 100 mg Oral TID risperiDONE (aka RISPERDAL) tablet 4 mg 4 mg Oral HS simvastatin (aka ZOCOR) tablet 20 mg 20 mg Oral QPM Pertinent Imaging: None Assessment: Keo Rowley is a 47 y.o. year old female consulted for reported seizure activi ty on 05/03/2013. Ms. Rowley is a poor historian when it comes to her seizure activity and she is unable to identify aggravating and alleviating factors leading up to her seizures. She c annot contribute information about her medical history as far as diagnoses and documentation on her prescriptions up to this point. Ms. Rowley has been on Depakote since September 2012 for bipolar disorder. She was reportedly diagnosed with a seizure disorder in 02/2013 and started on Phenytoin. Around the same time, the patient was also started on Wellbutrin and Gabapentin in February 2013, by her psychiatrist, for mood stabilization. These two medications are known to lower the seizure threshold and may have contributed to the onset of the new seizures. - In addition, current infection could lower seizure threshold as well, UA on 05/03 positiv e for moderate leukocytes, urine culture pending, currently treating with Cipro 250mg BID. - Ammonia level 84, high, transaminitis (AST 66, ALT 98, Alk Phos 200), continue to follow LFTs, considering hepatotoxicty associated with Depakote. - Current anti-epileptic medications, depakote and phenytoin, have known (and unpredictabl e) interactions and are at subtherapeutic levels, Phenytoin 3.7 (goal 10-20, corrected based on albumin = 5.8), Depakote = 33.0 (goal = 55-100). recommend discontinuing use of phenytoi n and increasing dose of Depakote. Can consider discontinuing Depakote if LFTs and ammonia l evels increase, continue to follow. Alternative antiepileptic medications to consider at out patient appointment include Vimpat or Lamictal. Recommendations: 1) Seizures - Order routine EEG - Increase Depakote dose from 500mg qday to 1500mg qday - Follow Ammonia and LFTs, consider transitioning to Vimpat as an outpatient - Continue Gabapentin 600mg TID - Start on Thiamine and Folate - Discontinue Tramadol and Wellbutrin - Schedule follow-up with outpatient psychiatrist for new mood stabilization medications - Obtain outside records from PCP (CT/EEG) 2) UTI - Urine culture results pending - Continue treating with antibiotics (Cipro 250mg BID), pending sensitivities Staffed with the Rudi Cervantes MD, who agrees with my assessment and plan Rayne Hamlin MD Department of Neurology PGY-1 Pager [phone] PGY-4 Addendum I can follow as her outpatient neurologist if necessary. Daniel Guzman MD PGY-4 Neuro ay Jay Grimaldo MD - 0 05/03/2013 4:05 PM PDTSignificant event: At 4pm today, pt had a witnessed seizure lasting ~20-30s. Per report, patient was found to be shaking in bed and eyes rolled back. No hypoxia or aspiration suspected. No trauma. Aramis Hein was paged and was at the bedside within a few minutes. She was found to be mildly confuse d, breathing comfortably. Eyes open, making eye contact. When asked if she knew where she was, she said "[facility]." She thought it to be 2008. A/P: Known seizure disorder, VSS. Spoke with neuro, who recommended checking levels of her antie pileptics. Do not suspect to be in status, as she was approaching her mental status that I observed this AM. - valproic acid level - phenytoin level - will titrate meds as needed Daniel Gil MD - 0 05/03/2013 4:03 PM PDTCalled by primary team about: Keo Rowley who is a 47 yo with known seizure disorder on depakote, dilantin and gabapenti n with 20 second seizure, now mildly post ictal. By chart review she is admitted for shortn ess of breath and edema. I asked the team to check depakote and dilantin levels and to conf irm that she is taking her AEDs. I also recommended that they check for infection as this c an be a trigger for seizures as well. Asked the team to call me back if there is concern fo r status epilepticus or continued seizures. Jay Jay Howell MD - 0 05/03/2013 2:19 PM PDTResident Addendum: Keo had another seizure-like episode today, as described in my significant event note. Neuro has made their recommendations, and we have made the medication changes. With respect to her PAH and RHF, she is still significantly volume up with JVP at earlobes. Ins and outs over the past 24 hours are inaccurate, as she inadvertently urinated on the f soheila. I expect that she will need to diurese off several more liters. Will follow up with pulmon ology recs, which include finding outside records and repeating TTE today. This patient was staffed with Dr. Jiang, who agrees with the A+P. Jay Jay Grimaldo MD Internal Medicine, PGY-3 Pager [phone] viva Cervantes - 2012 2:19 PM PDT INPATIENT PROGRESS NOTE Hospital Day:2 Author: AVIVA CERVANTES Attending Physician: Agus Jiang MD 24-hour events -- Episode of seizure with full body shaking 20s in duration per nursing report. At [facility] ruby luation, found to be post-ictal (AxO x 2) -- Neuro consulted, recs for levels -- Valproic acid 33 (L), phenytoin level pending -- Amezcua removed for UTI started in cipro 250 mg BID, will follow urine culture -- Hand cramping, given heat pads -- EEG for today Subjective She continues to feel tired. She woke up in the middle of the night feeling short of breath but was off CPAP at that time. With CPAP she was able to sleep well. +dysuria + orthopnea. Has not ambulated but is able to stand up along bedside. She denies SOB, CP, and abdominal p ain. Medications acetaminophen (aka TYLENOL) tablet 500 mg, 500 mg, Oral, Q6H PRN albuterol (aka PROVENTIL, VENTOLIN) 90 mcg/actuation inhaler 2 Puff, 2 Puff, Inhalation, Q4 H PRN albuterol-ipratropium (aka COMBIVENT) inhaler 2 Puff, 2 Puff, Inhalation, QID ascorbic acid tablet 500 mg, 500 mg, Oral, BID cholecalciferol (Vitamin D3) (aka VITAMIN D-3) tablet 2,000 Units, 2,000 Units, Oral, DAILY ciprofloxacin (aka CIPRO) tablet 250 mg, 250 mg, Oral, BID divalproex DR (aka DEPAKOTE) tablet 500 mg, 500 mg, Oral, DAILY docusate sodium (aka COLACE) capsule 50 mg, 50 mg, Oral, DAILY ferrous sulfate tablet 325 mg total salt, 325 mg total salt, Oral, BID gabapentin (aka NEURONTIN) tablet 600 mg, 600 mg, Oral, TID heparin injection 5,000 Units, 5,000 Units, Subcutaneous, Q8H levothyroxine tablet 137 mcg, 137 mcg, Oral, DAILY loratadine (aka CLARITIN) tablet 10 mg, 10 mg, Oral, DAILY nicotine (aka NICOTROL) 21 mg/24 hr patch 1 Patch, 1 Patch, Transdermal, DAILY omeprazole (aka PRILOSEC) capsule 20 mg, 20 mg, Oral, QAM PARoxetine (aka PAXIL) tablet 20 mg, 20 mg, Oral, DAILY phenytoin ER (aka DILANTIN) capsule 100 mg, 100 mg, Oral, TID risperiDONE (aka RISPERDAL) tablet 4 mg, 4 mg, Oral, HS simvastatin (aka ZOCOR) tablet 20 mg, 20 mg, Oral, QPM Objective Last 24 hour min/max Temp: 36.6 C (97.9 F) Temp Min: 36.6 C (97.9 F) Max: 36.8 C (98.2 F) Pulse: 63 Pulse Min: 63 Max: 78 Resp: 18 Resp Min: 18 Max: 18 BP: 112/64 mmHg BP Min: 94/50 Max: 120/63 SpO2: 94 % SpO2 Min: 92 % Max: 96 % Body mass index is 47.57 kg/(m^2). Intake/Output Summary (Last 24 hours) at 05/04/13 0700 Last data filed at 05/04/13 0500 Gross per 24 hour Intake 365 ml Output 1100 ml Net -735 ml BM x 1 UOP: 0.4 ml/kg/hr Net negative since admission 2.2 General: appears stated age, obsese, well-developed, well-nourished, no acute distress, ple asant HEENT: EOMI, no scleral icterus, facial plethora, MMM, clear OP Neck: Supple, JVP elevated seen at the ear lobe Chest: No use of accessory muscles, slight right basilar rales no wheezes Cardiac: RRR, 1/6 systolic murmur heard LUSB, S2 seems more pronounced per my exam, no sign ificant r/g Abdomen: active BS, soft, non-tender, non-distended, no hepatosplenomegaly, no masses, puls ations Extrem: 2+ distal pulses, WWP, 3+ pitting edema to knees, no calf pain Skin: no significant rash, ecchymoses or lesions, normal turgor Labs CBC with diff last 72 hours (or 3 results) Recent Labs 05/02/13220905/03/13 0735 05/04/13 0655 WBC 8.5 7.8 5.9 HB 16.1* 14.7 14.2 HCT 49.3* 45.6 43.1 PLT 153 152 129* NEUTROPERC 82* -- -- LYMPHPERC 14* -- -- MONOPERC 4 -- -- BASOPERC 0 -- -- EOSPERC 0* -- -- Chemistries: Last 72 Hours (or 3 results): Recent Labs 05/03/1335 05/03/13 1832 05/04/13 0655 NA 140 141 144 K 4.1 4.0 3.8 CL 103 104 106 BICARB 24 27 28 BUN 27* 25* 20 CR 0.85 0.85 0.78 GLU 91 131* 84 CA 8.4* 8.0* 8.1* MG -- 1.9 -- Liver Tests: Last 72 hours (or 3 results) Recent Labs 05/02/13220905/03/1335 05/04/13 0655 05/04/13 0940 AST 78* 75* 66* -- ALT 113* 102* 98* -- TBILI 0.5 0.3 0.2* -- AP 227* 209* 200* -- ALB 3.0* 2.6* 2.5* 2.7* TP 7.2 6.2* 5.8* -- 05/04 Ammonia 84H Lab Results Component Value Date INRPT 1.23* 05/02/2013 05/03/13 TSH 3.90 Valproic acid level 33.0 L Phenytoin level 3.7 L U/A/Micro: 495 RBC, 134 WBC, few bacteria, 100 protein, 2 urobilinogen, large blood, neg ke tones, neg nitrites, moderate LE Hep C: Negative OSH from 05/02/13 Troponin <0.04 CKMB Negative BNP 220 H D-dimer 307 H (<230 normal reference range) AB.44/33/22.7 P02 65L CX 05/03 Urine cx pending Imaging 05/04 EEG IMPRESSION This EEG is mildly abnormal. Occasional mild diffuse slowing was seen during wakefulness as described above. This may be consistent with a mild global encephalopathy which is nonspecific as to etiology. It is also possible that the slowing could be related in part to drowsiness, as the patient was noted to be drowsy (and sleeping) for much of the recording. No epileptiform activity is seen. No seizures were seen. There was no evidence of status epilepticus. 05/02 CXR 2 View IMPRESSION: Mild cardiomegaly, small and effusion and trace edema. 03/27 TTE OSH 1. LV is relatively small, underfilled cavity, with a normal EF and normal wall motion. Alice stolic function is consistent with grade 1 diastolic dysfunction, likely related to decrease d filling related to the right heart disease 2. RV: markedly enlarged, hypertrophied, and RV systolic function is severely reduced. Inte rventricular septal motion is frankly paradoxic consistent with right ventricular pressure o verload. Profound flattening of interventricular septum. 3. L atria normal size. R atria markedly increasing measure. Profound bowing of the interat rial septum from R to L, consistent with R atrial hypertension. 4. Mod to severe triscuspid regurgitation 5. Mild pulmonary valvular regurgitation Impression: "Severe right ventricular disease related to severe pulmonary hypertension. The hypertrophy suggests this is probably a chronic process but the possibility of acute PE j luis uld be clinically considered" Assessment and Plan Ms. Rowley is a 47 y.o with a history of Tobacco Use, morbid obesity, GLORIA on CPAP, COPD on h ome 02, developmental delay, HLD, seizure disorder who presented with subacute progressively worsening edema and dyspnea and 20lb weight gain from OSH and transferred for right heart f ailure in the setting of pulmonary hypertension. # Dyspnea in the setting of volume overload Subacute worsening of dyspnea likely secondary to HFpEF 2/2 likely pHTN. Unclear precipitat ing event for decompensation. Will carefully diurese given RV dysfunction and maintain adequ ate pressures as she is preload dependent. -- Continue 02 supplementation -- Lasix IV 40 mg today (Goal Net Negative 1-2 L) -- Daily Weights -- 2 L fluid restriction # Pulmonary HTN c/b cor pulmonale Her pulmonary HTN appears to be a chronic process that has only been recently supported by 03/26 TTE demonstrating normal EF with mild diastolic function, enlarged RV and RA with decr eased RV systolic. 05/02 CXR demonstrating enlarged RV and RA with vascular indistinctness in the lower lobes. Etiology likely a secondary cause in the setting of most likely long stand ing history of GLORIA (only recently on CPAP), COPD, and tobaccoism. Based on cards recs, consu lted pulmonology to approve for R heart catheter though this could be done outpatient. -- Appreciate Pulmonary and Cardiology following -- Need to obtain CTA to r/o PE -- Schedule PFTs -- F/U TTE # Seizure Disorder Episode of acute seizure activity 05/03 in the setting of UTI and sub-therapeutic levels poss ibly secondary to Wellbutrin and Gabapentin (known to decrease seizure threshold). Both medi cations started in February 2013 by her psychiatrist in addition reportedly diagnosed with seizur e disorder in 02/2013 and subsequently started on phenytoin. Last seizure per forensic analyst was 03/26 but forensic analyst was unaware that she had a seizure disorder until that time. CT was negat sofi at OSH and EEG demonstrated mild global encephalopathy but no seizures. 05/04 EEG demonstrating mild global encephalopathy. Appreciate neurology consult and will inc rease Depakote and follow associated labs (Ammonia and LFTs) as we may transition to Vimpat as outpatient. -- Appreciate Neurology following -- Increase Divalproex from 500 mg qday to 1500 mg qday (Depakote Level Goal 55-100) -- Trend Ammonia and LFTs for associated hepatotoxicity -- Initiate Thiamine and Folate -- Discontinued Phenytoin -- Continue Gabapentin 600 mg TID -- Removed medications that may affect AEDs level (wellbutrin and tramadol) -- Will obtain OSR from PCP (CT/EEG) #UTI UA/micro suggestive of UTI (mod LE, neg nitrites, few bacteria, WBCs 130s). Marta was remov ed after measuring UOP s/p diuresis. -- Started Cipro 250 mg PO BID and narrow with sensitivities -- F/U urine culture # Transaminitis Unclear etiology but may be related to hepatotoxicity associated with Depakote. Hep C. Nega tive -- Daily LFTs # Bipolar Affective Disorder -- Schedule F/U with outpatient psychiatrist for new mood stabilizations -- Continue paxil 20 mg PO qday -- Risperdal 4 mg PO qHS -- Discontinued Wellbutrin SR 200 mg PO BID # COPD/Tobaccoism -- Continue home combivent and albuterol -- Combivent inhaler 2 puff QID -- Nicotine Patch # GLORIA -- Continue CPAP # Hypothyroidism -- Continue Levothyroxine 137 mcg PO qday Diet: Regular DVT prophy: SCD, heparin Dispo: Tentative FULL CODE The patient was seen and discussed with the resident physician, Jose Eduardo Grimaldo, who agrees with my assessment and plan. Aviva Cervantes MS4, Pager [phone] azo, Too Bruno MD - 05/03/2013 1:52 PM PDT General Internal Medicine 4 Resident Progress Note Hospital Day:1 Author; TOO LOPEZ MD Attending Physician: Agus Jiang MD 24 Hour Events: Patient admitted overnight for dyspnea and increasing peripheral edema. Subjective: Currently, patient has no complaints other than hunger. She feels 'a little tired' but othe rwise, content. Physical Examination: Last 24 hour min/max Temp: 36.8 C (98.2 F) Temp Min: 36.6 C (97.9 F) Max: 36.9 C (98.4 F) Pulse: 66 Pulse Min: 64 Max: 78 Resp: 18 Resp Min: 18 Max: 20 BP: 120/63 mmHg BP Min: 88/50 Max: 120/63 SpO2: 96 % SpO2 Min: 90 % Max: 96 % Body mass index is 47.57 kg/(m^2). Intake/Output Summary (Last 24 hours) at 05/03/13 1357 Last data filed at 05/03/13 0824 Gross per 24 hour Intake 875 ml Output 2350 ml Net -1475 ml General Appearance: Pleasant female in NAD, lying comfortably in bed HEENT: EOMI Cardiovascular: physiology split S2, RRR, I/IV murmur heard at LUSB, JVP difficult to asses s Respiratory: coarse breath sounds heart at lung bases B/L Gastrointestinal: obese, soft, NT, ND, +bowel sounds Skin: dry, no rashes noted Extremities: +2 pitting edema in lower extremities up to knee B/L, +1 edema up to fdc c fpc b/l Psychiatric: appropriate mood and affect, cooperative Current Medications: Current Inpatient Medications Medication Dose Route Frequency acetaminophen (aka TYLENOL) tablet 500 mg 500 mg Oral Q6H PRN albuterol (aka PROVENTIL, VENTOLIN) 90 mcg/actuation inhaler 2 Puff 2 Puff Inhalation Q4H PRN albuterol-ipratropium (aka COMBIVENT) inhaler 2 Puff 2 Puff Inhalation QID ascorbic acid tablet 500 mg 500 mg Oral BID buPROPion SR (aka WELLBUTRIN-SR) tablet 200 mg 200 mg Oral BID cholecalciferol (Vitamin D3) (aka VITAMIN D-3) tablet 2,000 Units 2,000 Units Oral MARIBELL LY divalproex DR (aka DEPAKOTE) tablet 500 mg 500 mg Oral DAILY docusate sodium (aka COLACE) capsule 50 mg 50 mg Oral DAILY ferrous sulfate tablet 325 mg total salt 325 mg total salt Oral BID gabapentin (aka NEURONTIN) tablet 600 mg 600 mg Oral TID heparin injection 5,000 Units 5,000 Units Subcutaneous Q8H levothyroxine tablet 137 mcg 137 mcg Oral DAILY loratadine (aka CLARITIN) tablet 10 mg 10 mg Oral DAILY nicotine (aka NICOTROL) 21 mg/24 hr patch 1 Patch 1 Patch Transdermal DAILY omeprazole (aka PRILOSEC) capsule 20 mg 20 mg Oral QAM PARoxetine (aka PAXIL) tablet 20 mg 20 mg Oral DAILY phenytoin ER (aka DILANTIN) capsule 100 mg 100 mg Oral TID risperiDONE (aka RISPERDAL) tablet 4 mg 4 mg Oral HS simvastatin (aka ZOCOR) tablet 20 mg 20 mg Oral QPM Laboratory Interpretation: CBC with diff last 72 hours (or 3 results) Recent Labs 05/02/13220905/03/13 0735 WBC 8.5 7.8 HB 16.1* 14.7 HCT 49.3* 45.6 PLT 153 152 NEUTROPERC 82* -- LYMPHPERC 14* -- MONOPERC 4 -- BASOPERC 0 -- EOSPERC 0* -- Chemistries: Last 72 Hours (or 3 results): Recent Labs 05/02/13220905/03/13 0735 NA 139 140 K 4.7 4.1 CL 102 103 BICARB 23 24 BUN 23* 27* CR 0.93 0.85 GLU 121* 91 CA 8.8 8.4* 7/4: Urine dipstick shows positive for RBCs(large), positive for protein (100), positive fo r leukocytes(mod) and positive for urobilinogen(2.0). Micro exam: 134 WBCs per HPF, 495 RBC s per HPF and few + bacteria. EKG: R axis deviation Imaging Interpretation: CXR: Mild cardiomegaly, small and effusion and trace edema. Concerns for pulmonary HTN. Assessment and Plan 47 year old female with PMHx morbid obesity, GLORIA, COPD (on home O2), bipolar/PTSD, developm ental delay, hypothyroidism, HLD, and seizure disorder (on AED's), transferred from OSH afte r referral from PCP after presenting with worsening edema and dyspnea with subsequent echo s howing pHTN per report. #dyspnea - likely due to pulmonary HTN and RH failure -monitor I/Os and diurese as appropriate with 20mg IV lasix -continue O2 NC #pulmonary HTN and cor pulmonale -echocardiogram to further analyze -cardiology suggests consulting pulm for pHTN - require pulm signoff prior to R heart cath - could be done as outpatient #UTI - per results of UA and micro urine -start cipro 250mg PO BID for 3 day course -consider removing amezcua after measuring UOP s/p diuresis today #GLORIA - CPAP at night #FEN -order regular diet #mordid obesity #seizure -depakote 500mg PO qdaily #Bipolar disorder/PTSD -paxil 20mg PO qdaily -risperdal 4mg PO qbedtime -wellbutrin SR 200mg PO BID #COPD/smoking -nicotine patch -combivent inhaler 2 puff QID #hypothyroidism -levothyroxine 137mcg PO qdaily Agus Jiang MD saw and evaluated this patient and aggress with my assessment and plan as documented above. Jessica Lopez MD Anesthesiology, PGY-1 Pager [phone] documented in this enco unter Plan of Treatment + + +--------+ + + | Name | Type | Priori | Associated Diagnoses | Order Schedule | | | | ty | | | + + +--------+ + + | LIVER SET | Lab | Routin | Dyspnea | Ordered: 05/12/2013 | | (AST,ALT,BILI | | e | | | | TOTAL,BILI | | | | | | DIRECT,ALK | | | | | | PHOS,ALB,PROT TOTAL) | | | | | + + +--------+ + + | NONINVASV OXYGEN | Procedures | Routin | Dyspnea | Ordered: 05/12/2013 | | SATUR,MULTIPLE-BACK | | e | | | | OFFICE | | | | | + + +--------+ + + documented as of this encounter Procedures + +--------+ + + + | Procedure Name | Priori | Date/Time | Associated Diagnosis | Comments | | | ty | | | | + +--------+ + + + | RIGHT HEART | Routin | 12/04/2015 | | Results for this | | CATHETERIZATION | e | 10:08 PM | | procedure are in the | | | | PST | | results section. | + +--------+ + + + | CBC ONLY | Routin | 05/12/2013 | | Results for this | | | e | 8:25 AM | | procedure are in the | | | | PDT | | results section. | + +--------+ + + + | COMPLETE METABOLIC | Routin | 05/12/2013 | | Results for this | | SET | e | 8:25 AM | | procedure are in the | | (NA,K,CL,CO2,BUN,CRE | | PDT | | results section. | | AT,GLUC,CA,AST,ALT,B | | | | | | SERA TOTAL,ALK | | | | | | PHOS,ALB,PROT TOTAL) | | | | | + +--------+ + + + | CBC ONLY | Routin | 05/12/2013 | | Results for this | | | e | 8:25 AM | | procedure are in the | | | | PDT | | results section. | + +--------+ + + + | MAGNESIUM, PLASMA | Routin | 05/12/2013 | | Results for this | | | e | 8:25 AM | | procedure are in the | | | | PDT | | results section. | + +--------+ + + + | CBC ONLY | Routin | 05/11/2013 | | Results for this | | | e | 7:50 AM | | procedure are in the | | | | PDT | | results section. | + +--------+ + + + | VALPROIC ACID, | Routin | 05/11/2013 | | Results for this | | PLASMA | e | 7:50 AM | | procedure are in the | | | | PDT | | results section. | + +--------+ + + + | COMPLETE METABOLIC | Routin | 05/11/2013 | | Results for this | | SET | e | 7:50 AM | | procedure are in the | | (NA,K,CL,CO2,BUN,CRE | | PDT | | results section. | | AT,GLUC,CA,AST,ALT,B | | | | | | SERA TOTAL,ALK | | | | | | PHOS,ALB,PROT TOTAL) | | | | | + +--------+ + + + | CBC ONLY | Routin | 05/11/2013 | | Results for this | | | e | 7:50 AM | | procedure are in the | | | | PDT | | results section. | + +--------+ + + + | MAGNESIUM, PLASMA | Routin | 05/11/2013 | | Results for this | | | e | 7:50 AM | | procedure are in the | | | | PDT | | results section. | + +--------+ + + + | AMMONIA, PLASMA | Routin | 05/11/2013 | | Results for this | | | e | 7:50 AM | | procedure are in the | | | | PDT | | results section. | + +--------+ + + + | CBC ONLY | Routin | 05/10/2013 | | Results for this | | | e | 7:36 AM | | procedure are in the | | | | PDT | | results section. | + +--------+ + + + | COMPLETE METABOLIC | Routin | 05/10/2013 | | Results for this | | SET | e | 7:36 AM | | procedure are in the | | (NA,K,CL,CO2,BUN,CRE | | PDT | | results section. | | AT,GLUC,CA,AST,ALT,B | | | | | | SERA TOTAL,ALK | | | | | | PHOS,ALB,PROT TOTAL) | | | | | + +--------+ + + + | ANTI NUCLEAR AB | Routin | 05/10/2013 | | Results for this | | SCREEN, SERUM | e | 7:36 AM | | procedure are in the | | | | PDT | | results section. | + +--------+ + + + | HIV-1,2 AB/HIV-1 P24 | Routin | 05/10/2013 | | Results for this | | AG SCRN | e | 7:36 AM | | procedure are in the | | | | PDT | | results section. | + +--------+ + + + | ANTI NEUTROPHIL | Routin | 05/10/2013 | | Results for this | | CYTOPLASMIC AB SCN, | e | 7:36 AM | | procedure are in the | | SERUM | | PDT | | results section. | + +--------+ + + + | CBC ONLY | Routin | 05/10/2013 | | Results for this | | | e | 7:36 AM | | procedure are in the | | | | PDT | | results section. | + +--------+ + + + | MAGNESIUM, PLASMA | Routin | 05/10/2013 | | Results for this | | | e | 7:36 AM | | procedure are in the | | | | PDT | | results section. | + +--------+ + + + | CBC ONLY | Routin | 05/09/2013 | | Results for this | | | e | 7:18 AM | | procedure are in the | | | | PDT | | results section. | + +--------+ + + + | COMPLETE METABOLIC | Routin | 05/09/2013 | | Results for this | | SET | e | 7:18 AM | | procedure are in the | | (NA,K,CL,CO2,BUN,CRE | | PDT | | results section. | | AT,GLUC,CA,AST,ALT,B | | | | | | SERA TOTAL,ALK | | | | | | PHOS,ALB,PROT TOTAL) | | | | | + +--------+ + + + | CBC ONLY | Routin | 05/09/2013 | | Results for this | | | e | 7:18 AM | | procedure are in the | | | | PDT | | results section. | + +--------+ + + + | MAGNESIUM, PLASMA | Routin | 05/09/2013 | | Results for this | | | e | 7:18 AM | | procedure are in the | | | | PDT | | results section. | + +--------+ + + + | CBC ONLY | Routin | 05/08/2013 | | Results for this | | | e | 6:46 AM | | procedure are in the | | | | PDT | | results section. | + +--------+ + + + | COMPLETE METABOLIC | Routin | 05/08/2013 | | Results for this | | SET | e | 6:46 AM | | procedure are in the | | (NA,K,CL,CO2,BUN,CRE | | PDT | | results section. | | AT,GLUC,CA,AST,ALT,B | | | | | | SERA TOTAL,ALK | | | | | | PHOS,ALB,PROT TOTAL) | | | | | + +--------+ + + + | CBC ONLY | Routin | 05/08/2013 | | Results for this | | | e | 6:46 AM | | procedure are in the | | | | PDT | | results section. | + +--------+ + + + | MAGNESIUM, PLASMA | Routin | 05/08/2013 | | Results for this | | | e | 6:46 AM | | procedure are in the | | | | PDT | | results section. | + +--------+ + + + | SPIROMETRY, PULM | Routin | 05/07/2013 | | Results for this | | FUNCTION LAB | e | 2:44 PM | | procedure are in the | | | | PDT | | results section. | + +--------+ + + + | CBC ONLY | Routin | 05/07/2013 | | Results for this | | | e | 7:52 AM | | procedure are in the | | | | PDT | | results section. | + +--------+ + + + | COMPLETE METABOLIC | Routin | 05/07/2013 | | Results for this | | SET | e | 7:52 AM | | procedure are in the | | (NA,K,CL,CO2,BUN,CRE | | PDT | | results section. | | AT,GLUC,CA,AST,ALT,B | | | | | | SERA TOTAL,ALK | | | | | | PHOS,ALB,PROT TOTAL) | | | | | + +--------+ + + + | CBC ONLY | Routin | 05/07/2013 | | Results for this | | | e | 7:52 AM | | procedure are in the | | | | PDT | | results section. | + +--------+ + + + | MAGNESIUM, PLASMA | Routin | 05/07/2013 | | Results for this | | | e | 7:52 AM | | procedure are in the | | | | PDT | | results section. | + +--------+ + + + | AMMONIA, PLASMA | Routin | 05/07/2013 | | Results for this | | | e | 7:52 AM | | procedure are in the | | | | PDT | | results section. | + +--------+ + + + | CBC ONLY | Routin | 05/06/2013 | | Results for this | | | e | 7:42 AM | | procedure are in the | | | | PDT | | results section. | + +--------+ + + + | COMPLETE METABOLIC | Routin | 05/06/2013 | | Results for this | | SET | e | 7:42 AM | | procedure are in the | | (NA,K,CL,CO2,BUN,CRE | | PDT | | results section. | | AT,GLUC,CA,AST,ALT,B | | | | | | SERA TOTAL,ALK | | | | | | PHOS,ALB,PROT TOTAL) | | | | | + +--------+ + + + | CBC ONLY | Routin | 05/06/2013 | | Results for this | | | e | 7:42 AM | | procedure are in the | | | | PDT | | results section. | + +--------+ + + + | MAGNESIUM, PLASMA | Routin | 05/06/2013 | | Results for this | | | e | 7:42 AM | | procedure are in the | | | | PDT | | results section. | + +--------+ + + + | AMMONIA, PLASMA | Routin | 05/06/2013 | | Results for this | | | e | 7:42 AM | | procedure are in the | | | | PDT | | results section. | + +--------+ + + + | MAGNESIUM, PLASMA | Routin | 05/05/2013 | | Results for this | | | e | 10:08 AM | | procedure are in the | | | | PDT | | results section. | + +--------+ + + + | CBC ONLY | Routin | 05/05/2013 | | Results for this | | | e | 7:34 AM | | procedure are in the | | | | PDT | | results section. | + +--------+ + + + | COMPLETE METABOLIC | Routin | 05/05/2013 | | Results for this | | SET | e | 7:34 AM | | procedure are in the | | (NA,K,CL,CO2,BUN,CRE | | PDT | | results section. | | AT,GLUC,CA,AST,ALT,B | | | | | | SERA TOTAL,ALK | | | | | | PHOS,ALB,PROT TOTAL) | | | | | + +--------+ + + + | CBC ONLY | Routin | 05/05/2013 | | Results for this | | | e | 7:34 AM | | procedure are in the | | | | PDT | | results section. | + +--------+ + + + | AMMONIA, PLASMA | Routin | 05/05/2013 | | Results for this | | | e | 7:34 AM | | procedure are in the | | | | PDT | | results section. | + +--------+ + + + | CAPILLARY BLOOD | Routin | 05/04/2013 | | Results for this | | GLUCOSE (NO CHG), | e | 5:15 PM | | procedure are in the | | POC | | PDT | | results section. | + +--------+ + + + | PHENYTOIN, TOTAL | Routin | 05/04/2013 | | Results for this | | | e | 9:40 AM | | procedure are in the | | | | PDT | | results section. | + +--------+ + + + | ALBUMIN, PLASMA | Routin | 05/04/2013 | | Results for this | | | e | 9:40 AM | | procedure are in the | | | | PDT | | results section. | + +--------+ + + + | AMMONIA, PLASMA | Routin | 05/04/2013 | | Results for this | | | e | 9:40 AM | | procedure are in the | | | | PDT | | results section. | + +--------+ + + + | CBC ONLY | Routin | 05/04/2013 | | Results for this | | | e | 6:55 AM | | procedure are in the | | | | PDT | | results section. | + +--------+ + + + | COMPLETE METABOLIC | Routin | 05/04/2013 | | Results for this | | SET | e | 6:55 AM | | procedure are in the | | (NA,K,CL,CO2,BUN,CRE | | PDT | | results section. | | AT,GLUC,CA,AST,ALT,B | | | | | | SERA TOTAL,ALK | | | | | | PHOS,ALB,PROT TOTAL) | | | | | + +--------+ + + + | CBC ONLY | Routin | 05/04/2013 | | Results for this | | | e | 6:55 AM | | procedure are in the | | | | PDT | | results section. | + +--------+ + + + | RADIOLOGY | | 05/04/2013 | | Results for this | | | | 12:00 AM | | procedure are in the | | | | PDT | | results section. | + +--------+ + + + | TRANSTHORACIC | Routin | 05/04/2013 | | Results for this | | ECHOCARDIOGRAM, | e | 12:00 AM | | procedure are in the | | ADULT | | PDT | | results section. | + +--------+ + + + | EEG ROUTINE | Routin | 05/04/2013 | | Results for this | | | e | | | procedure are in the | | | | | | results section. | + +--------+ + + + | PHENYTOIN, FREE & | Routin | 05/03/2013 | | Results for this | | TOTAL | e | 6:32 PM | | procedure are in the | | | | PDT | | results section. | + +--------+ + + + | VALPROIC ACID, | Routin | 05/03/2013 | | Results for this | | PLASMA | e | 6:32 PM | | procedure are in the | | | | PDT | | results section. | + +--------+ + + + | BASIC METABOLIC SET | Routin | 05/03/2013 | | Results for this | | (NA, K, CL, TCO2, | e | 6:32 PM | | procedure are in the | | BUN, CR, GLU, CA) | | PDT | | results section. | + +--------+ + + + | MAGNESIUM, PLASMA | Routin | 05/03/2013 | | Results for this | | | e | 6:32 PM | | procedure are in the | | | | PDT | | results section. | + +--------+ + + + | UA, DIPSTICK ONLY | Routin | 05/03/2013 | | Results for this | | | e | 9:09 AM | | procedure are in the | | | | PDT | | results section. | + +--------+ + + + | URINE, MICROSCOPIC | Routin | 05/03/2013 | | Results for this | | EXAM | e | 9:09 AM | | procedure are in the | | | | PDT | | results section. | + +--------+ + + + | URINE SCREEN FOR | Routin | 05/03/2013 | | Results for this | | CULTURE | e | 9:09 AM | | procedure are in the | | | | PDT | | results section. | + +--------+ + + + | CULTURE, URINE BACTI | Routin | 05/03/2013 | | Results for this | | | e | 9:09 AM | | procedure are in the | | | | PDT | | results section. | + +--------+ + + + | CBC ONLY | Routin | 05/03/2013 | | Results for this | | | e | 7:35 AM | | procedure are in the | | | | PDT | | results section. | + +--------+ + + + | COMPLETE METABOLIC | Routin | 05/03/2013 | | Results for this | | SET | e | 7:35 AM | | procedure are in the | | (NA,K,CL,CO2,BUN,CRE | | PDT | | results section. | | AT,GLUC,CA,AST,ALT,B | | | | | | SERA TOTAL,ALK | | | | | | PHOS,ALB,PROT TOTAL) | | | | | + +--------+ + + + | CBC ONLY | Routin | 05/03/2013 | | Results for this | | | e | 7:35 AM | | procedure are in the | | | | PDT | | results section. | + +--------+ + + + | TSH | Routin | 05/03/2013 | | Results for this | | | e | 7:35 AM | | procedure are in the | | | | PDT | | results section. | + +--------+ + + + | HEPATITIS C VIRUS | Routin | 05/03/2013 | | Results for this | | W/CONFIRMATION | e | 7:35 AM | | procedure are in the | | | | PDT | | results section. | + +--------+ + + + | 12 LEAD ECG | Routin | 05/03/2013 | | Results for this | | | e | 12:20 AM | | procedure are in the | | | | PDT | | results section. | + +--------+ + + + | 12 LEAD ECG | Routin | 05/02/2013 | | Results for this | | | e | 11:55 PM | | procedure are in the | | | | PDT | | results section. | + +--------+ + + + | X-RAY CHEST 2 VIEW | Routin | 05/02/2013 | | Results for this | | | e | 11:35 PM | | procedure are in the | | | | PDT | | results section. | + +--------+ + + + | CBC AND AUTO DIFF | Routin | 05/02/2013 | | Results for this | | | e | 10:10 PM | | procedure are in the | | | | PDT | | results section. | + +--------+ + + + | INR | Routin | 05/02/2013 | | Results for this | | | e | 10:10 PM | | procedure are in the | | | | PDT | | results section. | + +--------+ + + + | CBC, WITH | Routin | 05/02/2013 | | Results for this | | DIFFERENTIAL | e | 10:10 PM | | procedure are in the | | | | PDT | | results section. | + +--------+ + + + | COMPLETE METABOLIC | Routin | 05/02/2013 | | Results for this | | SET | e | 10:10 PM | | procedure are in the | | (NA,K,CL,CO2,BUN,CRE | | PDT | | results section. | | AT,GLUC,CA,AST,ALT,B | | | | | | SERA TOTAL,ALK | | | | | | PHOS,ALB,PROT TOTAL) | | | | | + +--------+ + + + | APTT (ACT. PART. | Routin | 05/02/2013 | | Results for this | | THROMBO TIME) | e | 10:10 PM | | procedure are in the | | | | PDT | | results section. | + +--------+ + + + | CARDIOLOGY | | 05/02/2013 | | Results for this | | | | 12:00 AM | | procedure are in the | | | | PDT | | results section. | + +--------+ + + + documented in this encounter Results RIGHT HEART CATHETERIZATION (12/04/2015 10:08 PM PST)CBC (05/12/2013 8:25 AM PDT) + + + + + + | Component | Value | Ref Range | Performed | Pathologist | | | | | At | Signature | + + + + + + | WBC COUNT | 6.9 | 4.4 - 11.0 K/cu | [facility] | | | | | mm | LABORATORY | | | | | | SERVICES, | | | | | | CORE | | + + + + + + | RED CELL | 4.97 | 4.00 - 5.20 | [facility] | | | COUNT | | M/cu mm | LABORATORY | | | | | | SERVICES, | | | | | | CORE | | + + + + + + | HEMOGLOBIN | 16.3 (H) | 12.0 - 16.0 | [facility] | | | | | g/dL | LABORATORY | | | | | | SERVICES, | | | | | | CORE | | + + + + + + | HEMATOCRIT | 49.4 (H) | 36.0 - 46.0 % | [facility] | | | | | | LABORATORY | | | | | | SERVICES, | | | | | | CORE | | + + + + + + | MCV | 99.4 (H) | 80.0 - 96.0 fL | [facility] | | | | | | LABORATORY | | | | | | SERVICES, | | | | | | CORE | | + + + + + + | MCHC | 32.9 (L) | 33.4 - 35.5 | [facility] | | | | | g/dL | LABORATORY | | | | | | SERVICES, | | | | | | CORE | | + + + + + + | RDW | 15.2 (H) | 11.5 - 15.0 % | [facility] | | | | | | LABORATORY | | | | | | SERVICES, | | | | | | CORE | | + + + + + + | PLATELET | 132 (L) | 150 - 400 K/cu | [facility] | | | COUNT | | mm | LABORATORY | | | | | | SERVICES, | | | | | | CORE | | + + + + + + + + | Specimen | + + | Blood - Blood | + + + + + + + | Performing | Address | City/State/Zipcode | Phone Number | | Organization | | | | + + + + + | [facility] | [address] | [place] [address] | | | SERVICES, CORE | [address] | | | + + + + + MAGNESIUM, PLASMA (05/12/2013 8:25 AM PDT) + +-------+ + + + | Component | Value | Ref Range | Performed | Pathologist | | | | | At | Signature | + +-------+ + + + | MAGNESIUM,P | 1.9 | 1.8 - 2.5 mg/dL | [facility] | | | [facility] | | | LABORATORY | | | | | | SERVICES, | | | | | | CORE | | + +-------+ + + + + + | Specimen | + + | Blood - Blood | + + + + + + + | Performing | Address | City/State/Zipcode | Phone Number | | Organization | | | | + + + + + | [facility] | [address] | [place] [address] | | | [place], [place] | [address] | | | + + + + + COMPLETE METABOLIC SET (NA,K,CL,CO2,BUN,CREAT,GLUC,CA,AST,ALT,BILI TOTAL,ALK PHOS,ALB,PROT TOTAL) (05/12/2013 8:25 AM PDT) + +---------+ + + + | Component | Value | Ref Range | Performed | Pathologist | | | | | At | Signature | + +---------+ + + + | GLUCOSE, | 107 (H) | 60 - 99 mg/dL | [facility] | | | PLASMA | | | LABORATORY | | | (LAB) | | | SERVICES, | | | | | | CORE | | + +---------+ + + + | BUN, PLASMA | 20 | 6 - 20 mg/dL | [facility] | | | (LAB) | | | LABORATORY | | | | | | SERVICES, | | | | | | CORE | | + +---------+ + + + | CREATININE | 0.84 | 0.60 - 1.10 | [facility] | | | PLASMA | | mg/dL | LABORATORY | | | (LAB) | | | SERVICES, | | | | | | CORE | | + +---------+ + + + | EGFR | >60 | >60 mL/min | [facility] | | | - | | | LABORATORY | | | [facility] | | | SERVICES, | | | | | | CORE | | + +---------+ + + + | EGFR NON | >60 | >60 mL/min | [facility] | | | -[facility] | | | LABORATORY | | | [facility] | | | SERVICES, | | | | | | CORE | | + +---------+ + + + | SODIUM, | 138 | 136 - 145 | [facility] | | | PLASMA | | mmol/L | LABORATORY | | | (LAB) | | | SERVICES, | | | | | | CORE | | + +---------+ + + + | POTASSIUM, | 3.8 | 3.4 - 5.0 | [facility] | | | PLASMA | | mmol/L | LABORATORY | | | (LAB) | | | SERVICES, | | | | | | CORE | | + +---------+ + + + | CHLORIDE, | 100 | 97 - 108 mmol/L | [facility] | | | PLASMA | | | LABORATORY | | | (LAB) | | | SERVICES, | | | | | | CORE | | + +---------+ + + + | TOTAL CO2, | 28 | 21 - 32 mmol/L | [facility] | | | PLASMA | | | LABORATORY | | | (LAB) | | | SERVICES, | | | | | | CORE | | + +---------+ + + + | CALCIUM, | 9.5 | 8.6 - 10.2 | [facility] | | | PLASMA | | mg/dL | LABORATORY | | | (LAB) | | | SERVICES, | | | | | | CORE | | + +---------+ + + + | BILIRUBIN | 0.3 | 0.3 - 1.2 mg/dL | [facility] | | | TOTAL | | | LABORATORY | | | | | | SERVICES, | | | | | | CORE | | + +---------+ + + + | TOTAL | 7.0 | 6.4 - 8.2 g/dL | [facility] | | | PROTEIN, | | | LABORATORY | | | PLASMA | | | SERVICES, | | | (LAB) | | | CORE | | + +---------+ + + + | ALBUMIN, | 2.8 (L) | 3.5 - 4.7 g/dL | [facility] | | | PLASMA | | | LABORATORY | | | (LAB) | | | SERVICES, | | | | | | CORE | | + +---------+ + + + | ALK PHOS | 98 | 42 - 98 U/L | [facility] | | | | | | LABORATORY | | | | | | SERVICES, | | | | | | CORE | | + +---------+ + + + | AST(SGOT) | 33 | 15 - 41 U/L | [facility] | | | | | | LABORATORY | | | | | | SERVICES, | | | | | | CORE | | + +---------+ + + + | ALT (SGPT) | 38 | 12 - 60 U/L | [facility] | | | | | | LABORATORY | | | | | | SERVICES, | | | | | | CORE | | + +---------+ + + + | ANION | 13 (H) | 4 - 11 mmol/L | [facility] | | | GAP(ALB | | | LABORATORY | | | CORRECTED) | | | SERVICES, | | | | | | CORE | | + +---------+ + + + | POTASSIUM | No Hemo | | [facility] | | | CMNT | | | LABORATORY | | | | | | SERVICES, | | | | | | CORE | | + +---------+ + + + | BILI T CMNT | No Hemo | | [facility] | | | | | | LABORATORY | | | | | | SERVICES, | | | | | | CORE | | + +---------+ + + + | AST CMNT | No Hemo | | [facility] | | | | | | LABORATORY | | | | | | SERVICES, | | | | | | CORE | | + +---------+ + + + | ANION GAP | 10 | mmol/L | [facility] | | | | | | LABORATORY | | | | | | SERVICES, | | | | | | CORE | | + +---------+ + + + + + | Specimen | + + | Blood - Blood | + + + + + | Narrative | Performed At | + + + | GFR is estimated using the MDRD equation recommended by the | [facility] | | National Kidney Disease Education Program. Estimated GFR | LABORATORY | | Interpretive Information: <60 mL/min/1.73 sq m | SERVICES, CORE | | Chronic Kidney Disease <15 mL/min/1.73 sq m | | | Kidney Failure Estimated GFR greater that 60 mL/min/1.73 sq m is of | | | limited clinical value. The MDRD equation is not valid in the | | | following situations: - Patients under 18 years of age - Severe | | | malnutrition or obesity - Vegetarian diet - Rapidly changing kidney | | | function New reference range effective 2013 for Total proteins | | | performed in Core Lab only. | | + + + + + + + + | Performing | Address | City/State/Zipcode | Phone Number | | Organization | | | | + + + + + | [facility] | [address] | [place] [address] | | | SERVICES, [place] | [address] | | | + + + + + VALPROIC ACID, PLASMA (05/11/2013 7:50 AM PDT) + +-------+ + + + | Component | Value | Ref Range | Performed | Pathologist | | | | | At | Signature | + +-------+ + + + | VALPROIC | 84.4 | 50.0 - 100.0 | [facility] | | | ACID | | ug/mL | LABORATORY | | | | | | SERVICES, | | | | | | CORE | | + +-------+ + + + + + | Specimen | + + | Blood - Blood | + + + + + + + | Performing | Address | City/State/Zipcode | Phone Number | | Organization | | | | + + + + + | [facility] | [address] | [place] [address] | | | SERVICES, CORE | [address] | | | + + + + + AMMONIA, PLASMA (05/11/2013 7:50 AM PDT) + +--------+ + + + | Component | Value | Ref Range | Performed | Pathologist | | | | | At | Signature | + +--------+ + + + | AMMONIA | 72 (H) | 11 - 35 umol/L | [facility] | | | (LAB) | | | LABORATORY | | | | | | SERVICES, | | | | | | CORE | | + +--------+ + + + + + | Specimen | + + | Blood - Blood | + + + + + + + | Performing | Address | City/State/Zipcode | Phone Number | | Organization | | | | + + + + + | [facility] | [address] | [place] [address] | | | SERVICES, CORE | [address] | | | + + + + + CBC (05/11/2013 7:50 AM PDT) + + + + + + | Component | Value | Ref Range | Performed | Pathologist | | | | | At | Signature | + + + + + + | WBC COUNT | 6.6 | 4.4 - 11.0 K/cu | [facility] | | | | | mm | LABORATORY | | | | | | SERVICES, | | | | | | CORE | | + + + + + + | RED CELL | 4.94 | 4.00 - 5.20 | [facility] | | | COUNT | | M/cu mm | LABORATORY | | | | | | SERVICES, | | | | | | CORE | | + + + + + + | HEMOGLOBIN | 16.1 (H) | 12.0 - 16.0 | [facility] | | | | | g/dL | LABORATORY | | | | | | SERVICES, | | | | | | CORE | | + + + + + + | HEMATOCRIT | 49.6 (H) | 36.0 - 46.0 % | [facility] | | | | | | LABORATORY | | | | | | SERVICES, | | | | | | CORE | | + + + + + + | MCV | 100.5 (H) | 80.0 - 96.0 fL | [facility] | | | | | | LABORATORY | | | | | | SERVICES, | | | | | | CORE | | + + + + + + | MCHC | 32.5 (L) | 33.4 - 35.5 | [facility] | | | | | g/dL | LABORATORY | | | | | | SERVICES, | | | | | | CORE | | + + + + + + | RDW | 15.0 | 11.5 - 15.0 % | [facility] | | | | | | LABORATORY | | | | | | SERVICES, | | | | | | CORE | | + + + + + + | PLATELET | 136 (L) | 150 - 400 K/cu | [facility] | | | COUNT | | mm | LABORATORY | | | | | | SERVICES, | | | | | | CORE | | + + + + + + + + | Specimen | + + | Blood - Blood | + + + + + + + | Performing | Address | City/State/Zipcode | Phone Number | | Organization | | | | + + + + + | [facility] | [address] | [place] [address] | | | SERVICES, CORE | [address] | | | + + + + + MAGNESIUM, PLASMA (05/11/2013 7:50 AM PDT) + +-------+ + + + | Component | Value | Ref Range | Performed | Pathologist | | | | | At | Signature | + +-------+ + + + | MAGNESIUM,P | 2.0 | 1.8 - 2.5 mg/dL | [facility] | | | LASMA | | | LABORATORY | | | | | | JULIETA, | | | | | | CORE | | + +-------+ + + + + + | Specimen | + + | Blood - Blood | + + + + + + + | Performing | Address | City/State/Zipcode | Phone Number | | Organization | | | | + + + + + | [facility] | [address] | [place] [address] | | | SERVICES, [place] | [address] | | | + + + + + COMPLETE METABOLIC SET (NA,K,CL,CO2,BUN,CREAT,GLUC,CA,AST,ALT,BILI TOTAL,ALK PHOS,ALB,PROT TOTAL) (05/11/2013 7:50 AM PDT) + +---------+ + + + | Component | Value | Ref Range | Performed | Pathologist | | | | | At | Signature | + +---------+ + + + | GLUCOSE, | 105 (H) | 60 - 99 mg/dL | [facility] | | | PLASMA | | | LABORATORY | | | (LAB) | | | SERVICES, | | | | | | CORE | | + +---------+ + + + | BUN, PLASMA | 22 (H) | 6 - 20 mg/dL | [facility] | | | (LAB) | | | LABORATORY | | | | | | SERVICES, | | | | | | CORE | | + +---------+ + + + | CREATININE | 0.90 | 0.60 - 1.10 | [facility] | | | PLASMA | | mg/dL | LABORATORY | | | (LAB) | | | SERVICES, | | | | | | CORE | | + +---------+ + + + | EGFR | >60 | >60 mL/min | [facility] | | | - | | | LABORATORY | | | [facility] | | | SERVICES, | | | | | | CORE | | + +---------+ + + + | EGFR NON | >60 | >60 mL/min | [facility] | | | -[facility] | | | LABORATORY | | | [facility] | | | SERVICES, | | | | | | CORE | | + +---------+ + + + | SODIUM, | 138 | 136 - 145 | [facility] | | | PLASMA | | mmol/L | LABORATORY | | | (LAB) | | | SERVICES, | | | | | | CORE | | + +---------+ + + + | POTASSIUM, | 3.9 | 3.4 - 5.0 | [facility] | | | PLASMA | | mmol/L | LABORATORY | | | (LAB) | | | SERVICES, | | | | | | CORE | | + +---------+ + + + | CHLORIDE, | 99 | 97 - 108 mmol/L | [facility] | | | PLASMA | | | LABORATORY | | | (LAB) | | | SERVICES, | | | | | | CORE | | + +---------+ + + + | TOTAL CO2, | 29 | 21 - 32 mmol/L | [facility] | | | PLASMA | | | LABORATORY | | | (LAB) | | | SERVICES, | | | | | | CORE | | + +---------+ + + + | CALCIUM, | 9.4 | 8.6 - 10.2 | [facility] | | | PLASMA | | mg/dL | LABORATORY | | | (LAB) | | | SERVICES, | | | | | | CORE | | + +---------+ + + + | BILIRUBIN | 0.4 | 0.3 - 1.2 mg/dL | [facility] | | | TOTAL | | | LABORATORY | | | | | | SERVICES, | | | | | | CORE | | + +---------+ + + + | TOTAL | 7.0 | 6.4 - 8.2 g/dL | [facility] | | | PROTEIN, | | | LABORATORY | | | PLASMA | | | SERVICES, | | | (LAB) | | | CORE | | + +---------+ + + + | ALBUMIN, | 2.8 (L) | 3.5 - 4.7 g/dL | [facility] | | | PLASMA | | | LABORATORY | | | (LAB) | | | SERVICES, | | | | | | CORE | | + +---------+ + + + | ALK PHOS | 107 (H) | 42 - 98 U/L | [facility] | | | | | | LABORATORY | | | | | | SERVICES, | | | | | | CORE | | + +---------+ + + + | AST(SGOT) | 30 | 15 - 41 U/L | [facility] | | | | | | LABORATORY | | | | | | SERVICES, | | | | | | CORE | | + +---------+ + + + | ALT (SGPT) | 38 | 12 - 60 U/L | [facility] | | | | | | LABORATORY | | | | | | SERVICES, | | | | | | CORE | | + +---------+ + + + | ANION | 13 (H) | 4 - 11 mmol/L | [facility] | | | GAP(ALB | | | LABORATORY | | | CORRECTED) | | | SERVICES, | | | | | | CORE | | + +---------+ + + + | POTASSIUM | No Hemo | | [facility] | | | CMNT | | | LABORATORY | | | | | | SERVICES, | | | | | | CORE | | + +---------+ + + + | BILI T CMNT | No Hemo | | [facility] | | | | | | LABORATORY | | | | | | SERVICES, | | | | | | CORE | | + +---------+ + + + | AST CMNT | No Hemo | | [facility] | | | | | | LABORATORY | | | | | | SERVICES, | | | | | | CORE | | + +---------+ + + + | ANION GAP | 10 | mmol/L | [facility] | | | | | | LABORATORY | | | | | | SERVICES, | | | | | | CORE | | + +---------+ + + + + + | Specimen | + + | Blood - Blood | + + + + + | Narrative | Performed At | + + + | GFR is estimated using the MDRD equation recommended by the | [facility] | | National Kidney Disease Education Program. Estimated GFR | LABORATORY | | Interpretive Information: <60 mL/min/1.73 sq m | SERVICES, CORE | | Chronic Kidney Disease <15 mL/min/1.73 sq m | | | Kidney Failure Estimated GFR greater that 60 mL/min/1.73 sq m is of | | | limited clinical value. The MDRD equation is not valid in the | | | following situations: - Patients under 18 years of age - Severe | | | malnutrition or obesity - Vegetarian diet - Rapidly changing kidney | | | function New reference range effective 2013 for Total proteins | | | performed in Core Lab only. | | + + + + + + + + | Performing | Address | City/State/Zipcode | Phone Number | | Organization | | | | + + + + + | [facility] | [address] | [place] [address] | | | SERVICES, CORE | [address] | | | + + + + + CBC (05/10/2013 7:36 AM PDT) + + + + + + | Component | Value | Ref Range | Performed | Pathologist | | | | | At | Signature | + + + + + + | WBC COUNT | 6.8 | 4.4 - 11.0 K/cu | [facility] | | | | | mm | LABORATORY | | | | | | SERVICES, | | | | | | CORE | | + + + + + + | RED CELL | 4.94 | 4.00 - 5.20 | [facility] | | | COUNT | | M/cu mm | LABORATORY | | | | | | SERVICES, | | | | | | CORE | | + + + + + + | HEMOGLOBIN | 16.1 (H) | 12.0 - 16.0 | [facility] | | | | | g/dL | LABORATORY | | | | | | SERVICES, | | | | | | CORE | | + + + + + + | HEMATOCRIT | 49.2 (H) | 36.0 - 46.0 % | [facility] | | | | | | LABORATORY | | | | | | SERVICES, | | | | | | CORE | | + + + + + + | MCV | 99.6 (H) | 80.0 - 96.0 fL | [facility] | | | | | | LABORATORY | | | | | | SERVICES, | | | | | | CORE | | + + + + + + | MCHC | 32.8 (L) | 33.4 - 35.5 | [facility] | | | | | g/dL | LABORATORY | | | | | | SERVICES, | | | | | | CORE | | + + + + + + | RDW | 15.3 (H) | 11.5 - 15.0 % | [facility] | | | | | | LABORATORY | | | | | | SERVICES, | | | | | | CORE | | + + + + + + | PLATELET | 127 (L) | 150 - 400 K/cu | [facility] | | | COUNT | | mm | LABORATORY | | | | | | SERVICES, | | | | | | CORE | | + + + + + + + + | Specimen | + + | Blood - Blood | + + + + + + + | Performing | Address | City/State/Zipcode | Phone Number | | Organization | | | | + + + + + | [facility] | [address] | [place] [address] | | | SERVICES, CORE | [address] | | | + + + + + MAGNESIUM, PLASMA (05/10/2013 7:36 AM PDT) + +-------+ + + + | Component | Value | Ref Range | Performed | Pathologist | | | | | At | Signature | + +-------+ + + + | MAGNESIUM,P | 1.9 | 1.8 - 2.5 mg/dL | [facility] | | | LASMA | | | LABORATORY | | | | | | SERVICES, | | | | | | CORE | | + +-------+ + + + + + | Specimen | + + | Blood - Blood | + + + + + + + | Performing | Address | City/State/Zipcode | Phone Number | | Organization | | | | + + + + + | [facility] | [address] | [place] [address] | | | SERVICES, CORE | [address] | | | + + + + + COMPLETE METABOLIC SET (NA,K,CL,CO2,BUN,CREAT,GLUC,CA,AST,ALT,BILI TOTAL,ALK PHOS,ALB,PROT TOTAL) (05/10/2013 7:36 AM PDT) + +---------+ + + + | Component | Value | Ref Range | Performed | Pathologist | | | | | At | Signature | + +---------+ + + + | GLUCOSE, | 104 (H) | 60 - 99 mg/dL | [facility] | | | PLASMA | | | LABORATORY | | | (LAB) | | | SERVICES, | | | | | | CORE | | + +---------+ + + + | BUN, PLASMA | 18 | 6 - 20 mg/dL | [facility] | | | (LAB) | | | LABORATORY | | | | | | SERVICES, | | | | | | CORE | | + +---------+ + + + | CREATININE | 0.79 | 0.60 - 1.10 | [facility] | | | PLASMA | | mg/dL | LABORATORY | | | (LAB) | | | SERVICES, | | | | | | CORE | | + +---------+ + + + | EGFR | >60 | >60 mL/min | [facility] | | | - | | | LABORATORY | | | [facility] | | | SERVICES, | | | | | | CORE | | + +---------+ + + + | EGFR NON | >60 | >60 mL/min | [facility] | | | -[facility] | | | LABORATORY | | | [facility] | | | SERVICES, | | | | | | CORE | | + +---------+ + + + | SODIUM, | 140 | 136 - 145 | [facility] | | | PLASMA | | mmol/L | LABORATORY | | | (LAB) | | | SERVICES, | | | | | | CORE | | + +---------+ + + + | POTASSIUM, | 3.6 | 3.4 - 5.0 | [facility] | | | PLASMA | | mmol/L | LABORATORY | | | (LAB) | | | SERVICES, | | | | | | CORE | | + +---------+ + + + | CHLORIDE, | 100 | 97 - 108 mmol/L | [facility] | | | PLASMA | | | LABORATORY | | | (LAB) | | | SERVICES, | | | | | | CORE | | + +---------+ + + + | TOTAL CO2, | 32 | 21 - 32 mmol/L | [facility] | | | PLASMA | | | LABORATORY | | | (LAB) | | | SERVICES, | | | | | | CORE | | + +---------+ + + + | CALCIUM, | 8.5 (L) | 8.6 - 10.2 | [facility] | | | PLASMA | | mg/dL | LABORATORY | | | (LAB) | | | SERVICES, | | | | | | CORE | | + +---------+ + + + | BILIRUBIN | 0.4 | 0.3 - 1.2 mg/dL | [facility] | | | TOTAL | | | LABORATORY | | | | | | SERVICES, | | | | | | CORE | | + +---------+ + + + | TOTAL | 6.8 | 6.4 - 8.2 g/dL | [facility] | | | PROTEIN, | | | LABORATORY | | | PLASMA | | | SERVICES, | | | (LAB) | | | CORE | | + +---------+ + + + | ALBUMIN, | 2.7 (L) | 3.5 - 4.7 g/dL | [facility] | | | PLASMA | | | LABORATORY | | | (LAB) | | | SERVICES, | | | | | | CORE | | + +---------+ + + + | ALK PHOS | 118 (H) | 42 - 98 U/L | [facility] | | | | | | LABORATORY | | | | | | SERVICES, | | | | | | CORE | | + +---------+ + + + | AST(SGOT) | 29 | 15 - 41 U/L | [facility] | | | | | | LABORATORY | | | | | | SERVICES, | | | | | | CORE | | + +---------+ + + + | ALT (SGPT) | 41 | 12 - 60 U/L | [facility] | | | | | | LABORATORY | | | | | | SERVICES, | | | | | | CORE | | + +---------+ + + + | ANION | 11 | 4 - 11 mmol/L | [facility] | | | GAP(ALB | | | LABORATORY | | | CORRECTED) | | | SERVICES, | | | | | | CORE | | + +---------+ + + + | POTASSIUM | No Hemo | | [facility] | | | CMNT | | | LABORATORY | | | | | | SERVICES, | | | | | | CORE | | + +---------+ + + + | BILI T CMNT | No Hemo | | [facility] | | | | | | LABORATORY | | | | | | SERVICES, | | | | | | CORE | | + +---------+ + + + | AST CMNT | No Hemo | | [facility] | | | | | | LABORATORY | | | | | | SERVICES, | | | | | | CORE | | + +---------+ + + + | ANION GAP | 8 | mmol/L | [facility] | | | | | | LABORATORY | | | | | | SERVICES, | | | | | | CORE | | + +---------+ + + + + + | Specimen | + + | Blood - Blood | + + + + + | Narrative | Performed At | + + + | GFR is estimated using the MDRD equation recommended by the | [facility] | | National Kidney Disease Education Program. Estimated GFR | LABORATORY | | Interpretive Information: <60 mL/min/1.73 sq m | SERVICES, CORE | | Chronic Kidney Disease <15 mL/min/1.73 sq m | | | Kidney Failure Estimated GFR greater that 60 mL/min/1.73 sq m is of | | | limited clinical value. The MDRD equation is not valid in the | | | following situations: - Patients under 18 years of age - Severe | | | malnutrition or obesity - Vegetarian diet - Rapidly changing kidney | | | function New reference range effective 2013 for Total proteins | | | performed in Core Lab only. | | + + + + + + + + | Performing | Address | City/State/Zipcode | Phone Number | | Organization | | | | + + + + + | [facility] | [address] | [place] [address] | | | SERVICES, CORE | [address] | | | + + + + + ANTI NEUTROPHIL CYTOPLASMIC AB SCN, SERUM (05/10/2013 7:36 AM PDT) + + + + + + | Component | Value | Ref Range | Performed | Pathologist | | | | | At | Signature | + + + + + + | ANCA | <1:20Comment: The ANCA | <1:20 | [facility] | | | -NEUTROPHIL | IFA is <1:20; therefore, | | REG UNIV | | | | no further testing | | PTH - [facility] | | | CYTOPLASMIC | willbe performed. ANCA | | | | | IGG, SERUM | IFA is < 1:20. No | | | | | | further reflex testing | | | | | | will | | | | | | beperformed.INTERPRETIVE | | | | | | INFORMATION: | | | | | | Anti-Neutrophil Cyto Ab, | | | | | | IgG Neutrophil | | | | | | Cytoplasmic Antibodies | | | | | | (C-ANCA = | | | | | | granularcytoplasmic | | | | | | staining, P-ANCA = | | | | | | perinuclear staining) | | | | | | arefound in the serum of | | | | | | over 90 percent of | | | | | | patients withcertain | | | | | | necrotizing systemic | | | | | | vasculitides, and | | | | | | usually inless than 5 | | | | | | percent of patients with | | | | | | collagen | | | | | | vasculardisease or | | | | | | arthritis.Performed by | | | | | | [employer],[address] | | | | | | [address], [facility] [place] | | | | | | [id number] | | | | | | [phone]. | | | | | | Zane haile, | | | | | | , Lab. Director | | | | + + + + + + + + | Specimen | + + | Blood - Blood | + + + + + + + | Performing | Address | City/State/Zipcode | Phone Number | | Organization | | | | + + + + + | [facility] | [address] | [place], [place] | | | UNIV PTH [facility] | | [id number] | | + + + + + ANTI NUCLEAR AB SCREEN, SERUM (05/10/2013 7:36 AM PDT) + + + + + + | Component | Value | Ref Range | Performed | Pathologist | | | | | At | Signature | + + + + + + | CHAMP SCREEN | Negative | Negative | [facility] | | | [facility] | | | [facility] - | | | 2,SERUM | | | [place] | | + + + + + + + + | Specimen | + + | Blood - Blood | + + + + + + + | Performing | Address | City/State/Zipcode | Phone Number | | Organization | | | | + + + + + | [facility] | [address] | [place] [address] | | | [place] | | | | + + + + + HIV-1,2 AB/HIV-1 P24 AG SCRN, SERUM (05/10/2013 7:36 AM PDT) + + + + + + | Component | Value | Ref Range | Performed | Pathologist | | | | | At | Signature | + + + + + + | HIV-1,2 | Nonreactive | Nonreactive | [facility] | | | AB/HIV-1 | | | LABORATORY | | | P24 AG | | | SERVICES, | | | SCREEN | | | SPECIAL IMM | | | | | | + [place] | | + + + + + + + + | Specimen | + + | Blood - Blood | + + + + + | Narrative | Performed At | + + + | HIV-1 p24 Ag and HIV-1,2 Ab not detected. | [facility] | | | LABORATORY | | | SERVICES, | | | SPECIAL IMM + | | | [place] | + + + + + + + + | Performing | Address | City/State/Zipcode | Phone Number | | Organization | | | | + + + + + | [facility] | [address] | [place] [address] | | | SERVICES, SPECIAL | [address] | | | | IMM + [place] | | | | + + + + + CBC (05/09/2013 7:18 AM PDT) + + + + + + | Component | Value | Ref Range | Performed | Pathologist | | | | | At | Signature | + + + + + + | WBC COUNT | 8.2 | 4.4 - 11.0 K/cu | [facility] | | | | | mm | LABORATORY | | | | | | SERVICES, | | | | | | CORE | | + + + + + + | RED CELL | 5.06 | 4.00 - 5.20 | [facility] | | | COUNT | | M/cu mm | LABORATORY | | | | | | SERVICES, | | | | | | CORE | | + + + + + + | HEMOGLOBIN | 16.5 (H) | 12.0 - 16.0 | [facility] | | | | | g/dL | LABORATORY | | | | | | SERVICES, | | | | | | CORE | | + + + + + + | HEMATOCRIT | 50.6 (H) | 36.0 - 46.0 % | [facility] | | | | | | LABORATORY | | | | | | SERVICES, | | | | | | CORE | | + + + + + + | MCV | 100.0 (H) | 80.0 - 96.0 fL | [facility] | | | | | | LABORATORY | | | | | | SERVICES, | | | | | | CORE | | + + + + + + | MCHC | 32.6 (L) | 33.4 - 35.5 | [facility] | | | | | g/dL | LABORATORY | | | | | | SERVICES, | | | | | | CORE | | + + + + + + | RDW | 15.3 (H) | 11.5 - 15.0 % | [facility] | | | | | | LABORATORY | | | | | | SERVICES, | | | | | | CORE | | + + + + + + | PLATELET | 131 (L) | 150 - 400 K/cu | [facility] | | | COUNT | | mm | LABORATORY | | | | | | SERVICES, | | | | | | CORE | | + + + + + + + + | Specimen | + + | Blood - Blood | + + + + + + + | Performing | Address | City/State/Zipcode | Phone Number | | Organization | | | | + + + + + | [facility] | [address] | [place] [address] | | | SERVICES, CORE | [address] | | | + + + + + MAGNESIUM, PLASMA (05/09/2013 7:18 AM PDT) + +-------+ + + + | Component | Value | Ref Range | Performed | Pathologist | | | | | At | Signature | + +-------+ + + + | MAGNESIUM,P | 1.9 | 1.8 - 2.5 mg/dL | [facility] | | | LASMA | | | LABORATORY | | | | | | SERVICES, | | | | | | CORE | | + +-------+ + + + + + | Specimen | + + | Blood - Blood | + + + + + + + | Performing | Address | City/State/Zipcode | Phone Number | | Organization | | | | + + + + + | [facility] | [address] | [place] [address] | | | SERVICES, CORE | [address] | | | + + + + + COMPLETE METABOLIC SET (NA,K,CL,CO2,BUN,CREAT,GLUC,CA,AST,ALT,BILI TOTAL,ALK PHOS,ALB,PROT TOTAL) (05/09/2013 7:18 AM PDT) + +---------+ + + + | Component | Value | Ref Range | Performed | Pathologist | | | | | At | Signature | + +---------+ + + + | GLUCOSE, | 98 | 60 - 99 mg/dL | [facility] | | | PLASMA | | | LABORATORY | | | (LAB) | | | SERVICES, | | | | | | CORE | | + +---------+ + + + | BUN, PLASMA | 20 | 6 - 20 mg/dL | [facility] | | | (LAB) | | | LABORATORY | | | | | | SERVICES, | | | | | | CORE | | + +---------+ + + + | CREATININE | 0.82 | 0.60 - 1.10 | [facility] | | | PLASMA | | mg/dL | LABORATORY | | | (LAB) | | | SERVICES, | | | | | | CORE | | + +---------+ + + + | EGFR | >60 | >60 mL/min | [facility] | | | - | | | LABORATORY | | | [facility] | | | SERVICES, | | | | | | CORE | | + +---------+ + + + | EGFR NON | >60 | >60 mL/min | [facility] | | | -[facility] | | | LABORATORY | | | [facility] | | | SERVICES, | | | | | | CORE | | + +---------+ + + + | SODIUM, | 139 | 136 - 145 | [facility] | | | PLASMA | | mmol/L | LABORATORY | | | (LAB) | | | SERVICES, | | | | | | CORE | | + +---------+ + + + | POTASSIUM, | 3.9 | 3.4 - 5.0 | [facility] | | | PLASMA | | mmol/L | LABORATORY | | | (LAB) | | | SERVICES, | | | | | | CORE | | + +---------+ + + + | CHLORIDE, | 99 | 97 - 108 mmol/L | [facility] | | | PLASMA | | | LABORATORY | | | (LAB) | | | SERVICES, | | | | | | CORE | | + +---------+ + + + | TOTAL CO2, | 30 | 21 - 32 mmol/L | [facility] | | | PLASMA | | | LABORATORY | | | (LAB) | | | SERVICES, | | | | | | CORE | | + +---------+ + + + | CALCIUM, | 9.3 | 8.6 - 10.2 | [facility] | | | PLASMA | | mg/dL | LABORATORY | | | (LAB) | | | SERVICES, | | | | | | CORE | | + +---------+ + + + | BILIRUBIN | 0.5 | 0.3 - 1.2 mg/dL | [facility] | | | TOTAL | | | LABORATORY | | | | | | SERVICES, | | | | | | CORE | | + +---------+ + + + | TOTAL | 7.1 | 6.4 - 8.2 g/dL | [facility] | | | PROTEIN, | | | LABORATORY | | | PLASMA | | | SERVICES, | | | (LAB) | | | CORE | | + +---------+ + + + | ALBUMIN, | 3.0 (L) | 3.5 - 4.7 g/dL | [facility] | | | PLASMA | | | LABORATORY | | | (LAB) | | | SERVICES, | | | | | | CORE | | + +---------+ + + + | ALK PHOS | 133 (H) | 42 - 98 U/L | [facility] | | | | | | LABORATORY | | | | | | SERVICES, | | | | | | CORE | | + +---------+ + + + | AST(SGOT) | 34 | 15 - 41 U/L | [facility] | | | | | | LABORATORY | | | | | | SERVICES, | | | | | | CORE | | + +---------+ + + + | ALT (SGPT) | 47 | 12 - 60 U/L | [facility] | | | | | | LABORATORY | | | | | | SERVICES, | | | | | | CORE | | + +---------+ + + + | ANION | 12 (H) | 4 - 11 mmol/L | [facility] | | | GAP(ALB | | | LABORATORY | | | CORRECTED) | | | SERVICES, | | | | | | CORE | | + +---------+ + + + | POTASSIUM | No Hemo | | [facility] | | | CMNT | | | LABORATORY | | | | | | SERVICES, | | | | | | CORE | | + +---------+ + + + | BILI T CMNT | No Hemo | | [facility] | | | | | | LABORATORY | | | | | | SERVICES, | | | | | | CORE | | + +---------+ + + + | AST CMNT | No Hemo | | [facility] | | | | | | LABORATORY | | | | | | SERVICES, | | | | | | CORE | | + +---------+ + + + | ANION GAP | 10 | mmol/L | [facility] | | | | | | LABORATORY | | | | | | SERVICES, | | | | | | CORE | | + +---------+ + + + + + | Specimen | + + | Blood - Blood | + + + + + | Narrative | Performed At | + + + | GFR is estimated using the MDRD equation recommended by the | [facility] | | National Kidney Disease Education Program. Estimated GFR | LABORATORY | | Interpretive Information: <60 mL/min/1.73 sq m | SERVICES, CORE | | Chronic Kidney Disease <15 mL/min/1.73 sq m | | | Kidney Failure Estimated GFR greater that 60 mL/min/1.73 sq m is of | | | limited clinical value. The MDRD equation is not valid in the | | | following situations: - Patients under 18 years of age - Severe | | | malnutrition or obesity - Vegetarian diet - Rapidly changing kidney | | | function New reference range effective 2013 for Total proteins | | | performed in Core Lab only. | | + + + + + + + + | Performing | Address | City/State/Zipcode | Phone Number | | Organization | | | | + + + + + | [facility] | [address] | [place] [address] | | | SERVICES, CORE | [address] | | | + + + + + CBC (05/08/2013 6:46 AM PDT) + + + + + + | Component | Value | Ref Range | Performed | Pathologist | | | | | At | Signature | + + + + + + | WBC COUNT | 7.9 | 4.4 - 11.0 K/cu | [facility] | | | | | mm | LABORATORY | | | | | | SERVICES, | | | | | | CORE | | + + + + + + | RED CELL | 5.04 | 4.00 - 5.20 | [facility] | | | COUNT | | M/cu mm | LABORATORY | | | | | | SERVICES, | | | | | | CORE | | + + + + + + | HEMOGLOBIN | 16.8 (H) | 12.0 - 16.0 | [facility] | | | | | g/dL | LABORATORY | | | | | | SERVICES, | | | | | | CORE | | + + + + + + | HEMATOCRIT | 50.9 (H) | 36.0 - 46.0 % | [facility] | | | | | | LABORATORY | | | | | | SERVICES, | | | | | | CORE | | + + + + + + | MCV | 101.0 (H) | 80.0 - 96.0 fL | [facility] | | | | | | LABORATORY | | | | | | SERVICES, | | | | | | CORE | | + + + + + + | MCHC | 33.1 (L) | 33.4 - 35.5 | [facility] | | | | | g/dL | LABORATORY | | | | | | SERVICES, | | | | | | CORE | | + + + + + + | RDW | 16.2 (H) | 11.5 - 15.0 % | [facility] | | | | | | LABORATORY | | | | | | SERVICES, | | | | | | CORE | | + + + + + + | PLATELET | 130 (L) | 150 - 400 K/cu | [facility] | | | COUNT | | mm | LABORATORY | | | | | | SERVICES, | | | | | | CORE | | + + + + + + + + | Specimen | + + | Blood - Blood | + + + + + + + | Performing | Address | City/State/Zipcode | Phone Number | | Organization | | | | + + + + + | [facility] | [address] | [place] [address] | | | SERVICES, CORE | [address] | | | + + + + + COMPLETE METABOLIC SET (NA,K,CL,CO2,BUN,CREAT,GLUC,CA,AST,ALT,BILI TOTAL,ALK PHOS,ALB,PROT TOTAL) (05/08/2013 6:46 AM PDT) + +---------+ + + + | Component | Value | Ref Range | Performed | Pathologist | | | | | At | Signature | + +---------+ + + + | GLUCOSE, | 94 | 60 - 99 mg/dL | [facility] | | | PLASMA | | | LABORATORY | | | (LAB) | | | SERVICES, | | | | | | CORE | | + +---------+ + + + | BUN, PLASMA | 18 | 6 - 20 mg/dL | [facility] | | | (LAB) | | | LABORATORY | | | | | | SERVICES, | | | | | | CORE | | + +---------+ + + + | CREATININE | 0.82 | 0.60 - 1.10 | [facility] | | | PLASMA | | mg/dL | LABORATORY | | | (LAB) | | | SERVICES, | | | | | | CORE | | + +---------+ + + + | EGFR | >60 | >60 mL/min | [facility] | | | - | | | LABORATORY | | | [facility] | | | SERVICES, | | | | | | CORE | | + +---------+ + + + | EGFR NON | >60 | >60 mL/min | [facility] | | | -[facility] | | | LABORATORY | | | [facility] | | | SERVICES, | | | | | | CORE | | + +---------+ + + + | SODIUM, | 139 | 136 - 145 | [facility] | | | PLASMA | | mmol/L | LABORATORY | | | (LAB) | | | SERVICES, | | | | | | CORE | | + +---------+ + + + | POTASSIUM, | 4.1 | 3.4 - 5.0 | [facility] | | | PLASMA | | mmol/L | LABORATORY | | | (LAB) | | | SERVICES, | | | | | | CORE | | + +---------+ + + + | CHLORIDE, | 102 | 97 - 108 mmol/L | [facility] | | | PLASMA | | | LABORATORY | | | (LAB) | | | SERVICES, | | | | | | CORE | | + +---------+ + + + | TOTAL CO2, | 26 | 21 - 32 mmol/L | [facility] | | | PLASMA | | | LABORATORY | | | (LAB) | | | SERVICES, | | | | | | CORE | | + +---------+ + + + | CALCIUM, | 8.8 | 8.6 - 10.2 | [facility] | | | PLASMA | | mg/dL | LABORATORY | | | (LAB) | | | SERVICES, | | | | | | CORE | | + +---------+ + + + | BILIRUBIN | 0.3 | 0.3 - 1.2 mg/dL | [facility] | | | TOTAL | | | LABORATORY | | | | | | SERVICES, | | | | | | CORE | | + +---------+ + + + | TOTAL | 6.7 | 6.4 - 8.2 g/dL | [facility] | | | PROTEIN, | | | LABORATORY | | | PLASMA | | | SERVICES, | | | (LAB) | | | CORE | | + +---------+ + + + | ALBUMIN, | 2.7 (L) | 3.5 - 4.7 g/dL | [facility] | | | PLASMA | | | LABORATORY | | | (LAB) | | | SERVICES, | | | | | | CORE | | + +---------+ + + + | ALK PHOS | 145 (H) | 42 - 98 U/L | [facility] | | | | | | LABORATORY | | | | | | SERVICES, | | | | | | CORE | | + +---------+ + + + | AST(SGOT) | 34 | 15 - 41 U/L | [facility] | | | | | | LABORATORY | | | | | | SERVICES, | | | | | | CORE | | + +---------+ + + + | ALT (SGPT) | 53 | 12 - 60 U/L | [facility] | | | | | | LABORATORY | | | | | | SERVICES, | | | | | | CORE | | + +---------+ + + + | ANION | 14 (H) | 4 - 11 mmol/L | [facility] | | | GAP(ALB | | | LABORATORY | | | CORRECTED) | | | SERVICES, | | | | | | CORE | | + +---------+ + + + | POTASSIUM | No Hemo | | [facility] | | | [facility] | | | LABORATORY | | | | | | SERVICES, | | | | | | CORE | | + +---------+ + + + | BILI T CMNT | No Hemo | | [facility] | | | | | | LABORATORY | | | | | | SERVICES, | | | | | | CORE | | + +---------+ + + + | AST CMNT | No Hemo | | [facility] | | | | | | LABORATORY | | | | | | SERVICES, | | | | | | CORE | | + +---------+ + + + | ANION GAP | 11 | mmol/L | [facility] | | | | | | LABORATORY | | | | | | SERVICES, | | | | | | CORE | | + +---------+ + + + + + | Specimen | + + | Blood - Blood | + + + + + | Narrative | Performed At | + + + | GFR is estimated using the MDRD equation recommended by the | [facility] | | National Kidney Disease Education Program. Estimated GFR | LABORATORY | | Interpretive Information: <60 mL/min/1.73 sq m | SERVICES, [facility] | | Chronic Kidney Disease <15 mL/min/1.73 sq m | | | Kidney Failure Estimated GFR greater that 60 mL/min/1.73 sq m is of | | | limited clinical value. The MDRD equation is not valid in the | | | following situations: - Patients under 18 years of age - Severe | | | malnutrition or obesity - Vegetarian diet - Rapidly changing kidney | | | function New reference range effective 2013 for Total proteins | | | performed in Core Lab only. | | + + + + + + + + | Performing | Address | City/State/Zipcode | Phone Number | | Organization | | | | + + + + + | [facility] | [address] | [place] [address] | | | [facility], [facility] | [address] | | | + + + + + MAGNESIUM, PLASMA (05/08/2013 6:46 AM PDT) + +-------+ + + + | Component | Value | Ref Range | Performed | Pathologist | | | | | At | Signature | + +-------+ + + + | MAGNESIUM,P | 1.8 | 1.8 - 2.5 mg/dL | [facility] | | | LASMA | | | LABORATORY | | | | | | SERVICES, | | | | | | CORE | | + +-------+ + + + + + | Specimen | + + | Blood - Blood | + + + + + + + | Performing | Address | City/State/Zipcode | Phone Number | | Organization | | | | + + + + + | [facility] | [address] | [place] [address] | | | SERVICES, CORE | [address] | | | + + + + + SPIROMETRY, PULM FUNCTION LAB (05/07/2013 2:44 PM PDT) + + + + + + | Component | Value | Ref Range | Performed | Pathologist | | | | | At | Signature | + + + + + + | FVC PRE | 2.07 | 2.98 Liters | [facility] | | | | | | SPECIAL | | | | | | DIAGNOSTICS | | | | | | - | | | | | | PULMONARY | | | | | | FUNCTION | | + + + + + + | FVC PRE | 70 | % | [facility] | | | (%REF) | | | SPECIAL | | | | | | DIAGNOSTICS | | | | | | - | | | | | | PULMONARY | | | | | | FUNCTION | | + + + + + + | FEV1 PRE | 1.40 | 2.38 Liters | [facility] | | | | | | SPECIAL | | | | | | DIAGNOSTICS | | | | | | - | | | | | | PULMONARY | | | | | | FUNCTION | | + + + + + + | FEV1 PRE | 59 | % | [facility] | | | (%REF) | | | SPECIAL | | | | | | DIAGNOSTICS | | | | | | - | | | | | | PULMONARY | | | | | | FUNCTION | | + + + + + + | FEV1/FVC | 68 | 80 % | [facility] | | | PRE | | | SPECIAL | | | | | | DIAGNOSTICS | | | | | | - | | | | | | PULMONARY | | | | | | FUNCTION | | + + + + + + | FEV1/FVC | 84 | % | [facility] | | | PRE (%REF) | | | SPECIAL | | | | | | DIAGNOSTICS | | | | | | - | | | | | | PULMONARY | | | | | | FUNCTION | | + + + + + + | [id number]% | 0.75 | 2.52 L/sec | [facility] | | | PRE | | | SPECIAL | | | | | | DIAGNOSTICS | | | | | | - | | | | | | PULMONARY | | | | | | FUNCTION | | + + + + + + | [id number]% | 30 | % | [facility] | | | PRE (%REF) | | | SPECIAL | | | | | | DIAGNOSTICS | | | | | | - | | | | | | PULMONARY | | | | | | FUNCTION | | + + + + + + | PEF PRE | 2.67 | 6.04 L/sec | [facility] | | | | | | SPECIAL | | | | | | DIAGNOSTICS | | | | | | - | | | | | | PULMONARY | | | | | | FUNCTION | | + + + + + + | PEF PRE | 44 | % | [facility] | | | (%REF) | | | SPECIAL | | | | | | DIAGNOSTICS | | | | | | - | | | | | | PULMONARY | | | | | | FUNCTION | | + + + + + + | FIF50% PRE | 2.30 | L/sec | [facility] | | | | | | SPECIAL | | | | | | DIAGNOSTICS | | | | | | - | | | | | | PULMONARY | | | | | | FUNCTION | | + + + + + + | PULMONARY | Name: KEO ROWLEY | | [facility] | | | INTERPRETAT | ID# [id number] | | SPECIAL | | | ION | Date: | | DIAGNOSTICS | | | | 05/07/13 Age: 47 | | - | | | | Gender: | | PULMONARY | | | | Female | | FUNCTION | | | | Race: | | | | | | Height(in):Physician: | | | | | | AGUS JIANG B | | | | | | Strap Buckler Machine: | | | | | | Katty Del Rio, RPFT | | | | | | Diagnosis: 416.0 | | | | | | pulmonary HTN | | | | | | Occ Exposure: | | | | | | | | | | | | | | | | | | Dyspnea Exercise: Yes | | | | | | Dyspnea Rest: Yes Cough: | | | | | | Yes | | | | | | Persistent: Yes | | | | | | | | | | | | Productive (cc): 10 | | | | | | Smoker: Yes | | | | | | How Lon | | | | | | Cigarettes: | | | | | | Yes Quit: No | | | | | | | | | | | | Stopped: | | | | | | Order# [id number] | | | | | | | | | | | | Spirometry | | | | | | Ref | | | | | | Pre Pre | | | | | | Post Post | | | | | | Post | | | | | | | | | | | | Elizabeth % Ref | | | | | | Elizabeth % Ref | | | | | | % ChgFVC | | | | | | Liters 2.98 | | | | | | 2.07 70FEV1 | | | | | | Liters 2.38 | | | | | | 1.40 59FEV1/FVC | | | | | | % 80 | | | | | | 68 [id number]% | | | | | | L/sec 2.52 | | | | | | 0.75 | | | | | | [id number] L/sec | | | | | | | | | | | | 0.75PEF | | | | | | L/sec 6.04 | | | | | | 2.67 [id number]% | | | | | | L/sec | | | | | | 2.30 | | | | | | Lung | | | | | | VolumesTLC | | | | | | Liters 4.31VC | | | | | | Liters 2.72IC | | | | | | Liters 1.79FRC | | | | | | N2 Liters | | | | | | 2.37ERV | | | | | | Liters 0.90RV | | | | | | Liters 1.52RV/TLC | | | | | | % 35Wash | | | | | | Time MinFRC PL | | | | | | Liters 2.37 | | | | | | | | | | | | Pulmonary Pressures | | | | | | | | | | | | Ref Pre Pre | | | | | | | | | | | | Elizabeth % | | | | | | RefPI max cmH2O | | | | | | 88PI Volume LitersPE | | | | | | max cmH2O 195PE | | | | | | Volume Liters | | | | | | | | | | | | Diffusing Capacity | | | | | | (DLCO) | | | | | | Ref | | | | | | Pre Pre | | | | | | | | | | | | Elizabeth | | | | | | % RefDLCO | | | | | | mL/mmHg/min 20.8DL | | | | | | Adj mL/mmHg/min | | | | | | 20.8DLCO/VA | | | | | | mL/mHg/min/L 4.84DL/VA | | | | | | Adj mL/mHg/min/L 5.18 PF | | | | | | Reference: NHANES III - | | | | | | | | | | | | | | | | | | | | | | | | | | | | | | | | | | | | Page 1Name: CHRISTI, | | | | | | KEO ID: | | | | | | [id number] | | | | | | Date: 05/07/13 | | | | | | | | | | | | | | | | | | Six Minute Walk | | | | | | test (if done) | | | | | | COMMENTS:Height | | | | | | and weight were taken | | | | | | from chart as patient | | | | | | could not safely stand | | | | | | on thescale. Patient | | | | | | had some trouble | | | | | | understanding and | | | | | | following directions for | | | | | | thetest. PEFs are not | | | | | | consistent. FVCs and | | | | | | FEV1s are consistent. | | | | | | Patient wasunable to | | | | | | complete the inspiratory | | | | | | loops. | | | | | | | | | | | | | | | | | | Physician | | | | | | Interpretation | | | | | | | | | | | | | | | | | | | | | | | | | | | | | | Page 2 | | | | + + + + + + + + | Specimen | + + | | + + + + + | Narrative | Performed At | + + + | | [facility] | | | DIAGNOSTICS - | | | PULMONARY | | | FUNCTION | + + + + + | Procedure Note | + + | Other, Faculty - 05/08/2013 9:18 AM PDT | + + + + + + + | Performing | Address | City/State/Zipcode | Phone Number | | Organization | | | | + + + + + | [facility] | [address] | [place], [place] | | | DIAGNOSTICS - | [address] | [id number] | | | PULMONARY FUNCTION | | | | + + + + + CBC (05/07/2013 7:52 AM PDT) + + + + + + | Component | Value | Ref Range | Performed | Pathologist | | | | | At | Signature | + + + + + + | WBC COUNT | 6.9 | 4.4 - 11.0 K/cu | [facility] | | | | | mm | LABORATORY | | | | | | SERVICES, | | | | | | CORE | | + + + + + + | RED CELL | 4.84 | 4.00 - 5.20 | [facility] | | | COUNT | | M/cu mm | LABORATORY | | | | | | SERVICES, | | | | | | CORE | | + + + + + + | HEMOGLOBIN | 16.0 | 12.0 - 16.0 | [facility] | | | | | g/dL | LABORATORY | | | | | | SERVICES, | | | | | | CORE | | + + + + + + | HEMATOCRIT | 49.0 (H) | 36.0 - 46.0 % | [facility] | | | | | | LABORATORY | | | | | | SERVICES, | | | | | | CORE | | + + + + + + | MCV | 101.1 (H) | 80.0 - 96.0 fL | [facility] | | | | | | LABORATORY | | | | | | SERVICES, | | | | | | CORE | | + + + + + + | MCHC | 32.7 (L) | 33.4 - 35.5 | [facility] | | | | | g/dL | LABORATORY | | | | | | SERVICES, | | | | | | CORE | | + + + + + + | RDW | 15.8 (H) | 11.5 - 15.0 % | [facility] | | | | | | LABORATORY | | | | | | SERVICES, | | | | | | CORE | | + + + + + + | PLATELET | 136 (L) | 150 - 400 K/cu | [facility] | | | COUNT | | mm | LABORATORY | | | | | | SERVICES, | | | | | | CORE | | + + + + + + + + | Specimen | + + | Blood - Blood | + + + + + + + | Performing | Address | City/State/Zipcode | Phone Number | | Organization | | | | + + + + + | [facility] | [address] | [place] [address] | | | SERVICES, CORE | [address] | | | + + + + + AMMONIA, PLASMA (05/07/2013 7:52 AM PDT) + +--------+ + + + | Component | Value | Ref Range | Performed | Pathologist | | | | | At | Signature | + +--------+ + + + | AMMONIA | 76 (H) | 11 - 35 umol/L | [facility] | | | (LAB) | | | LABORATORY | | | | | | SERVICES, | | | | | | CORE | | + +--------+ + + + + + | Specimen | + + | Blood - Blood | + + + + + + + | Performing | Address | City/State/Zipcode | Phone Number | | Organization | | | | + + + + + | [facility] | [address] | [place] [address] | | | SERVICES, CORE | [address] | | | + + + + + COMPLETE METABOLIC SET (NA,K,CL,CO2,BUN,CREAT,GLUC,CA,AST,ALT,BILI TOTAL,ALK PHOS,ALB,PROT TOTAL) (05/07/2013 7:52 AM PDT) + +---------+ + + + | Component | Value | Ref Range | Performed | Pathologist | | | | | At | Signature | + +---------+ + + + | GLUCOSE, | 91 | 60 - 99 mg/dL | [facility] | | | PLASMA | | | LABORATORY | | | (LAB) | | | SERVICES, | | | | | | CORE | | + +---------+ + + + | BUN, PLASMA | 17 | 6 - 20 mg/dL | [facility] | | | (LAB) | | | LABORATORY | | | | | | SERVICES, | | | | | | CORE | | + +---------+ + + + | CREATININE | 0.80 | 0.60 - 1.10 | [facility] | | | PLASMA | | mg/dL | LABORATORY | | | (LAB) | | | SERVICES, | | | | | | CORE | | + +---------+ + + + | EGFR | >60 | >60 mL/min | [facility] | | | - | | | LABORATORY | | | [facility] | | | SERVICES, | | | | | | CORE | | + +---------+ + + + | EGFR NON | >60 | >60 mL/min | [facility] | | | -[facility] | | | LABORATORY | | | [facility] | | | SERVICES, | | | | | | CORE | | + +---------+ + + + | SODIUM, | 142 | 136 - 145 | [facility] | | | PLASMA | | mmol/L | LABORATORY | | | (LAB) | | | SERVICES, | | | | | | CORE | | + +---------+ + + + | POTASSIUM, | 4.4 | 3.4 - 5.0 | [facility] | | | PLASMA | | mmol/L | LABORATORY | | | (LAB) | | | SERVICES, | | | | | | CORE | | + +---------+ + + + | CHLORIDE, | 104 | 97 - 108 mmol/L | [facility] | | | PLASMA | | | LABORATORY | | | (LAB) | | | SERVICES, | | | | | | CORE | | + +---------+ + + + | TOTAL CO2, | 28 | 21 - 32 mmol/L | [facility] | | | PLASMA | | | LABORATORY | | | (LAB) | | | SERVICES, | | | | | | CORE | | + +---------+ + + + | CALCIUM, | 8.7 | 8.6 - 10.2 | [facility] | | | PLASMA | | mg/dL | LABORATORY | | | (LAB) | | | SERVICES, | | | | | | CORE | | + +---------+ + + + | BILIRUBIN | 0.3 | 0.3 - 1.2 mg/dL | [facility] | | | TOTAL | | | LABORATORY | | | | | | SERVICES, | | | | | | CORE | | + +---------+ + + + | TOTAL | 6.3 (L) | 6.4 - 8.2 g/dL | [facility] | | | PROTEIN, | | | LABORATORY | | | PLASMA | | | SERVICES, | | | (LAB) | | | CORE | | + +---------+ + + + | ALBUMIN, | 2.6 (L) | 3.5 - 4.7 g/dL | [facility] | | | PLASMA | | | LABORATORY | | | (LAB) | | | SERVICES, | | | | | | CORE | | + +---------+ + + + | ALK PHOS | 154 (H) | 42 - 98 U/L | [facility] | | | | | | LABORATORY | | | | | | SERVICES, | | | | | | CORE | | + +---------+ + + + | AST(SGOT) | 33 | 15 - 41 U/L | [facility] | | | | | | LABORATORY | | | | | | SERVICES, | | | | | | CORE | | + +---------+ + + + | ALT (SGPT) | 59 | 12 - 60 U/L | [facility] | | | | | | LABORATORY | | | | | | SERVICES, | | | | | | CORE | | + +---------+ + + + | ANION | 13 (H) | 4 - 11 mmol/L | [facility] | | | GAP(ALB | | | LABORATORY | | | CORRECTED) | | | SERVICES, | | | | | | CORE | | + +---------+ + + + | POTASSIUM | No Hemo | | [facility] | | | CMNT | | | LABORATORY | | | | | | SERVICES, | | | | | | CORE | | + +---------+ + + + | BILI T CMNT | No Hemo | | [facility] | | | | | | LABORATORY | | | | | | SERVICES, | | | | | | CORE | | + +---------+ + + + | AST CMNT | No Hemo | | [facility] | | | | | | LABORATORY | | | | | | SERVICES, | | | | | | CORE | | + +---------+ + + + | ANION GAP | 10 | mmol/L | [facility] | | | | | | LABORATORY | | | | | | SERVICES, | | | | | | CORE | | + +---------+ + + + + + | Specimen | + + | Blood - Blood | + + + + + | Narrative | Performed At | + + + | GFR is estimated using the MDRD equation recommended by the | [facility] | | National Kidney Disease Education Program. Estimated GFR | LABORATORY | | Interpretive Information: <60 mL/min/1.73 sq m | SERVICES, CORE | | Chronic Kidney Disease <15 mL/min/1.73 sq m | | | Kidney Failure Estimated GFR greater that 60 mL/min/1.73 sq m is of | | | limited clinical value. The MDRD equation is not valid in the | | | following situations: - Patients under 18 years of age - Severe | | | malnutrition or obesity - Vegetarian diet - Rapidly changing kidney | | | function New reference range effective 2013 for Total proteins | | | performed in Core Lab only. | | + + + + + + + + | Performing | Address | City/State/Zipcode | Phone Number | | Organization | | | | + + + + + | [facility] | [address] | [place] [address] | | | SERVICES, CORE | [address] | | | + + + + + MAGNESIUM, PLASMA (05/07/2013 7:52 AM PDT) + +-------+ + + + | Component | Value | Ref Range | Performed | Pathologist | | | | | At | Signature | + +-------+ + + + | MAGNESIUM,P | 1.9 | 1.8 - 2.5 mg/dL | [facility] | | | LASMA | | | LABORATORY | | | | | | SERVICES, | | | | | | CORE | | + +-------+ + + + + + | Specimen | + + | Blood - Blood | + + + + + + + | Performing | Address | City/State/Zipcode | Phone Number | | Organization | | | | + + + + + | [facility] | [address] | [place] [address] | | | SERVICES, CORE | [address] | | | + + + + + CBC (05/06/2013 7:42 AM PDT) + + + + + + | Component | Value | Ref Range | Performed | Pathologist | | | | | At | Signature | + + + + + + | WBC COUNT | 5.0 | 4.4 - 11.0 K/cu | [facility] | | | | | mm | LABORATORY | | | | | | SERVICES, | | | | | | CORE | | + + + + + + | RED CELL | 4.69 | 4.00 - 5.20 | [facility] | | | COUNT | | M/cu mm | LABORATORY | | | | | | SERVICES, | | | | | | CORE | | + + + + + + | HEMOGLOBIN | 15.3 | 12.0 - 16.0 | [facility] | | | | | g/dL | LABORATORY | | | | | | SERVICES, | | | | | | CORE | | + + + + + + | HEMATOCRIT | 47.4 (H) | 36.0 - 46.0 % | [facility] | | | | | | LABORATORY | | | | | | SERVICES, | | | | | | CORE | | + + + + + + | MCV | 101.1 (H) | 80.0 - 96.0 fL | [facility] | | | | | | LABORATORY | | | | | | SERVICES, | | | | | | CORE | | + + + + + + | MCHC | 32.3 (L) | 33.4 - 35.5 | [facility] | | | | | g/dL | LABORATORY | | | | | | SERVICES, | | | | | | CORE | | + + + + + + | RDW | 16.2 (H) | 11.5 - 15.0 % | [facility] | | | | | | LABORATORY | | | | | | SERVICES, | | | | | | CORE | | + + + + + + | PLATELET | 133 (L) | 150 - 400 K/cu | [facility] | | | COUNT | | mm | LABORATORY | | | | | | SERVICES, | | | | | | CORE | | + + + + + + + + | Specimen | + + | Blood - Blood | + + + + + + + | Performing | Address | City/State/Zipcode | Phone Number | | Organization | | | | + + + + + | [facility] | [address] | [place] [address] | | | SERVICES, CORE | [address] | | | + + + + + AMMONIA, PLASMA (05/06/2013 7:42 AM PDT) + +--------+ + + + | Component | Value | Ref Range | Performed | Pathologist | | | | | At | Signature | + +--------+ + + + | AMMONIA | 73 (H) | 11 - 35 umol/L | [facility] | | | (LAB) | | | LABORATORY | | | | | | SERVICES, | | | | | | CORE | | + +--------+ + + + + + | Specimen | + + | Blood - Blood | + + + + + + + | Performing | Address | City/State/Zipcode | Phone Number | | Organization | | | | + + + + + | [facility] | [address] | [place] [address] | | | SERVICES, [place] | [address] | | | + + + + + COMPLETE METABOLIC SET (NA,K,CL,CO2,BUN,CREAT,GLUC,CA,AST,ALT,BILI TOTAL,ALK PHOS,ALB,PROT TOTAL) (05/06/2013 7:42 AM PDT) + +---------+ + + + | Component | Value | Ref Range | Performed | Pathologist | | | | | At | Signature | + +---------+ + + + | GLUCOSE, | 90 | 60 - 99 mg/dL | [facility] | | | PLASMA | | | LABORATORY | | | (LAB) | | | SERVICES, | | | | | | CORE | | + +---------+ + + + | BUN, PLASMA | 16 | 6 - 20 mg/dL | [facility] | | | (LAB) | | | LABORATORY | | | | | | SERVICES, | | | | | | CORE | | + +---------+ + + + | CREATININE | 0.89 | 0.60 - 1.10 | [facility] | | | PLASMA | | mg/dL | LABORATORY | | | (LAB) | | | SERVICES, | | | | | | CORE | | + +---------+ + + + | EGFR | >60 | >60 mL/min | [facility] | | | - | | | LABORATORY | | | [facility] | | | SERVICES, | | | | | | CORE | | + +---------+ + + + | EGFR NON | >60 | >60 mL/min | [facility] | | | -[facility] | | | LABORATORY | | | [facility] | | | SERVICES, | | | | | | CORE | | + +---------+ + + + | SODIUM, | 141 | 136 - 145 | [facility] | | | PLASMA | | mmol/L | LABORATORY | | | (LAB) | | | SERVICES, | | | | | | CORE | | + +---------+ + + + | POTASSIUM, | 3.9 | 3.4 - 5.0 | [facility] | | | PLASMA | | mmol/L | LABORATORY | | | (LAB) | | | SERVICES, | | | | | | CORE | | + +---------+ + + + | CHLORIDE, | 103 | 97 - 108 mmol/L | [facility] | | | PLASMA | | | LABORATORY | | | (LAB) | | | SERVICES, | | | | | | CORE | | + +---------+ + + + | TOTAL CO2, | 30 | 21 - 32 mmol/L | [facility] | | | PLASMA | | | LABORATORY | | | (LAB) | | | SERVICES, | | | | | | CORE | | + +---------+ + + + | CALCIUM, | 8.8 | 8.6 - 10.2 | [facility] | | | PLASMA | | mg/dL | LABORATORY | | | (LAB) | | | SERVICES, | | | | | | CORE | | + +---------+ + + + | BILIRUBIN | 0.2 (L) | 0.3 - 1.2 mg/dL | [facility] | | | TOTAL | | | LABORATORY | | | | | | SERVICES, | | | | | | CORE | | + +---------+ + + + | TOTAL | 6.0 (L) | 6.4 - 8.2 g/dL | [facility] | | | PROTEIN, | | | LABORATORY | | | PLASMA | | | SERVICES, | | | (LAB) | | | CORE | | + +---------+ + + + | ALBUMIN, | 2.5 (L) | 3.5 - 4.7 g/dL | [facility] | | | PLASMA | | | LABORATORY | | | (LAB) | | | SERVICES, | | | | | | CORE | | + +---------+ + + + | ALK PHOS | 167 (H) | 42 - 98 U/L | [facility] | | | | | | LABORATORY | | | | | | SERVICES, | | | | | | CORE | | + +---------+ + + + | AST(SGOT) | 34 | 15 - 41 U/L | [facility] | | | | | | LABORATORY | | | | | | SERVICES, | | | | | | CORE | | + +---------+ + + + | ALT (SGPT) | 70 (H) | 12 - 60 U/L | [facility] | | | | | | LABORATORY | | | | | | SERVICES, | | | | | | CORE | | + +---------+ + + + | ANION | 11 | 4 - 11 mmol/L | [facility] | | | GAP(ALB | | | LABORATORY | | | CORRECTED) | | | SERVICES, | | | | | | CORE | | + +---------+ + + + | POTASSIUM | No Hemo | | [facility] | | | CMNT | | | LABORATORY | | | | | | SERVICES, | | | | | | CORE | | + +---------+ + + + | BILI T CMNT | No Hemo | | [facility] | | | | | | LABORATORY | | | | | | SERVICES, | | | | | | CORE | | + +---------+ + + + | AST CMNT | No Hemo | | [facility] | | | | | | LABORATORY | | | | | | SERVICES, | | | | | | CORE | | + +---------+ + + + | ANION GAP | 8 | mmol/L | [facility] | | | | | | LABORATORY | | | | | | SERVICES, | | | | | | CORE | | + +---------+ + + + + + | Specimen | + + | Blood - Blood | + + + + + | Narrative | Performed At | + + + | GFR is estimated using the MDRD equation recommended by the | [facility] | | National Kidney Disease Education Program. Estimated GFR | LABORATORY | | Interpretive Information: <60 mL/min/1.73 sq m | SERVICES, CORE | | Chronic Kidney Disease <15 mL/min/1.73 sq m | | | Kidney Failure Estimated GFR greater that 60 mL/min/1.73 sq m is of | | | limited clinical value. The MDRD equation is not valid in the | | | following situations: - Patients under 18 years of age - Severe | | | malnutrition or obesity - Vegetarian diet - Rapidly changing kidney | | | function New reference range effective 2013 for Total proteins | | | performed in Core Lab only. | | + + + + + + + + | Performing | Address | City/State/Zipcode | Phone Number | | Organization | | | | + + + + + | [facility] | [address] | [place] [address] | | | SERVICES, CORE | [address] | | | + + + + + MAGNESIUM, PLASMA (05/06/2013 7:42 AM PDT) + +-------+ + + + | Component | Value | Ref Range | Performed | Pathologist | | | | | At | Signature | + +-------+ + + + | MAGNESIUM,P | 1.9 | 1.8 - 2.5 mg/dL | [facility] | | | [facility] | | | LABORATORY | | | | | | SERVICES, | | | | | | CORE | | + +-------+ + + + + + | Specimen | + + | Blood - Blood | + + + + + + + | Performing | Address | City/State/Zipcode | Phone Number | | Organization | | | | + + + + + | [facility] | [address] | [place] [address] | | | JULIETA, CORE | [address] | | | + + + + + MAGNESIUM, PLASMA (05/05/2013 10:08 AM PDT) + +-------+ + + + | Component | Value | Ref Range | Performed | Pathologist | | | | | At | Signature | + +-------+ + + + | MAGNESIUM,P | 2.0 | 1.8 - 2.5 mg/dL | [facility] | | | [facility] | | | LABORATORY | | | | | | SERVICES, | | | | | | CORE | | + +-------+ + + + + + | Specimen | + + | Blood - Blood | + + + + + + + | Performing | Address | City/State/Zipcode | Phone Number | | Organization | | | | + + + + + | [facility] | [address] | [place] [address] | | | SERVICES, CORE | [address] | | | + + + + + CBC (05/05/2013 7:34 AM PDT) + + + + + + | Component | Value | Ref Range | Performed | Pathologist | | | | | At | Signature | + + + + + + | WBC COUNT | 4.8 | 4.4 - 11.0 K/cu | [facility] | | | | | mm | LABORATORY | | | | | | SERVICES, | | | | | | CORE | | + + + + + + | RED CELL | 4.44 | 4.00 - 5.20 | [facility] | | | COUNT | | M/cu mm | LABORATORY | | | | | | SERVICES, | | | | | | CORE | | + + + + + + | HEMOGLOBIN | 14.6 | 12.0 - 16.0 | [facility] | | | | | g/dL | LABORATORY | | | | | | SERVICES, | | | | | | CORE | | + + + + + + | HEMATOCRIT | 45.1 | 36.0 - 46.0 % | [facility] | | | | | | LABORATORY | | | | | | SERVICES, | | | | | | CORE | | + + + + + + | MCV | 101.5 (H) | 80.0 - 96.0 fL | [facility] | | | | | | LABORATORY | | | | | | SERVICES, | | | | | | CORE | | + + + + + + | MCHC | 32.3 (L) | 33.4 - 35.5 | [facility] | | | | | g/dL | LABORATORY | | | | | | SERVICES, | | | | | | CORE | | + + + + + + | RDW | 15.7 (H) | 11.5 - 15.0 % | [facility] | | | | | | LABORATORY | | | | | | SERVICES, | | | | | | CORE | | + + + + + + | PLATELET | 132 (L) | 150 - 400 K/cu | [facility] | | | COUNT | | mm | LABORATORY | | | | | | SERVICES, | | | | | | CORE | | + + + + + + + + | Specimen | + + | Blood - Blood | + + + + + + + | Performing | Address | City/State/Zipcode | Phone Number | | Organization | | | | + + + + + | [facility] | [address] | [place] [address] | | | SERVICES, CORE | [address] | | | + + + + + AMMONIA, PLASMA (05/05/2013 7:34 AM PDT) + +---------+ + + + | Component | Value | Ref Range | Performed | Pathologist | | | | | At | Signature | + +---------+ + + + | AMMONIA | 105 (H) | 11 - 35 umol/L | [facility] | | | (LAB) | | | LABORATORY | | | | | | SERVICES, | | | | | | CORE | | + +---------+ + + + + + | Specimen | + + | Blood - Blood | + + + + + + + | Performing | Address | City/State/Zipcode | Phone Number | | Organization | | | | + + + + + | [facility] | [address] | [place] [address] | | | SERVICES, CORE | [address] | | | + + + + + COMPLETE METABOLIC SET (NA,K,CL,CO2,BUN,CREAT,GLUC,CA,AST,ALT,BILI TOTAL,ALK PHOS,ALB,PROT TOTAL) (05/05/2013 7:34 AM PDT) + +---------+ + + + | Component | Value | Ref Range | Performed | Pathologist | | | | | At | Signature | + +---------+ + + + | GLUCOSE, | 87 | 60 - 99 mg/dL | [facility] | | | PLASMA | | | LABORATORY | | | (LAB) | | | SERVICES, | | | | | | CORE | | + +---------+ + + + | BUN, PLASMA | 15 | 6 - 20 mg/dL | [facility] | | | (LAB) | | | LABORATORY | | | | | | SERVICES, | | | | | | CORE | | + +---------+ + + + | CREATININE | 0.71 | 0.60 - 1.10 | [facility] | | | PLASMA | | mg/dL | LABORATORY | | | (LAB) | | | SERVICES, | | | | | | CORE | | + +---------+ + + + | EGFR | >60 | >60 mL/min | [facility] | | | - | | | LABORATORY | | | [facility] | | | SERVICES, | | | | | | CORE | | + +---------+ + + + | EGFR NON | >60 | >60 mL/min | [facility] | | | -[facility] | | | LABORATORY | | | [facility] | | | SERVICES, | | | | | | CORE | | + +---------+ + + + | SODIUM, | 143 | 136 - 145 | [facility] | | | PLASMA | | mmol/L | LABORATORY | | | (LAB) | | | SERVICES, | | | | | | CORE | | + +---------+ + + + | POTASSIUM, | 4.0 | 3.4 - 5.0 | [facility] | | | PLASMA | | mmol/L | LABORATORY | | | (LAB) | | | SERVICES, | | | | | | CORE | | + +---------+ + + + | CHLORIDE, | 106 | 97 - 108 mmol/L | [facility] | | | PLASMA | | | LABORATORY | | | (LAB) | | | SERVICES, | | | | | | CORE | | + +---------+ + + + | TOTAL CO2, | 29 | 21 - 32 mmol/L | [facility] | | | PLASMA | | | LABORATORY | | | (LAB) | | | SERVICES, | | | | | | CORE | | + +---------+ + + + | CALCIUM, | 8.6 | 8.6 - 10.2 | [facility] | | | PLASMA | | mg/dL | LABORATORY | | | (LAB) | | | SERVICES, | | | | | | CORE | | + +---------+ + + + | BILIRUBIN | 0.2 (L) | 0.3 - 1.2 mg/dL | [facility] | | | TOTAL | | | LABORATORY | | | | | | SERVICES, | | | | | | CORE | | + +---------+ + + + | TOTAL | 5.8 (L) | 6.4 - 8.2 g/dL | [facility] | | | PROTEIN, | | | LABORATORY | | | PLASMA | | | SERVICES, | | | (LAB) | | | CORE | | + +---------+ + + + | ALBUMIN, | 2.6 (L) | 3.5 - 4.7 g/dL | [facility] | | | PLASMA | | | LABORATORY | | | (LAB) | | | SERVICES, | | | | | | CORE | | + +---------+ + + + | ALK PHOS | 181 (H) | 42 - 98 U/L | [facility] | | | | | | LABORATORY | | | | | | SERVICES, | | | | | | CORE | | + +---------+ + + + | AST(SGOT) | 48 (H) | 15 - 41 U/L | [facility] | | | | | | LABORATORY | | | | | | SERVICES, | | | | | | CORE | | + +---------+ + + + | ALT (SGPT) | 84 (H) | 12 - 60 U/L | [facility] | | | | | | LABORATORY | | | | | | SERVICES, | | | | | | CORE | | + +---------+ + + + | ANION | 11 | 4 - 11 mmol/L | [facility] | | | GAP(ALB | | | LABORATORY | | | CORRECTED) | | | SERVICES, | | | | | | CORE | | + +---------+ + + + | POTASSIUM | No Hemo | | [facility] | | | CMNT | | | LABORATORY | | | | | | SERVICES, | | | | | | CORE | | + +---------+ + + + | BILI T CMNT | No Hemo | | [facility] | | | | | | LABORATORY | | | | | | SERVICES, | | | | | | CORE | | + +---------+ + + + | AST CMNT | No Hemo | | [facility] | | | | | | LABORATORY | | | | | | SERVICES, | | | | | | CORE | | + +---------+ + + + | ANION GAP | 8 | mmol/L | [facility] | | | | | | LABORATORY | | | | | | SERVICES, | | | | | | CORE | | + +---------+ + + + + + | Specimen | + + | Blood - Blood | + + + + + | Narrative | Performed At | + + + | GFR is estimated using the MDRD equation recommended by the | [facility] | | National Kidney Disease Education Program. Estimated GFR | LABORATORY | | Interpretive Information: <60 mL/min/1.73 sq m | SERVICES, CORE | | Chronic Kidney Disease <15 mL/min/1.73 sq m | | | Kidney Failure Estimated GFR greater that 60 mL/min/1.73 sq m is of | | | limited clinical value. The MDRD equation is not valid in the | | | following situations: - Patients under 18 years of age - Severe | | | malnutrition or obesity - Vegetarian diet - Rapidly changing kidney | | | function New reference range effective 2013 for Total proteins | | | performed in Core Lab only. | | + + + + + + + + | Performing | Address | City/State/Zipcode | Phone Number | | Organization | | | | + + + + + | [facility] | [address] | [place] [address] | | | SERVICES, CORE | [address] | | | + + + + + CAPILLARY BLOOD GLUCOSE (NO CHG), POC (05/04/2013 5:15 PM PDT) + +---------+ + + + | Component | Value | Ref Range | Performed | Pathologist | | | | | At | Signature | + +---------+ + + + | BLOOD | 120 (H) | 60 - 99 mg/dL | [facility] - | | | GLUCOSE, | | | [facility] | | | POC | | | [facility] | | | | | | OF CARE | | | | | | TESTS | | + +---------+ + + + + + | Specimen | + + | | + + + + + + + | Performing | Address | City/State/Zipcode | Phone Number | | Organization | | | | + + + + + | [facility] | [address] | [place], [place] | | | [facility] | [address] | [address] | | | TESTS | | | | + + + + + AMMONIA, PLASMA (05/04/2013 9:40 AM PDT) + +--------+ + + + | Component | Value | Ref Range | Performed | Pathologist | | | | | At | Signature | + +--------+ + + + | AMMONIA | 84 (H) | 11 - 35 umol/L | [facility] | | | (LAB) | | | LABORATORY | | | | | | SERVICES, | | | | | | CORE | | + +--------+ + + + + + | Specimen | + + | Blood - Blood | + + + + + + + | Performing | Address | City/State/Zipcode | Phone Number | | Organization | | | | + + + + + | [facility] | [address] | [place] [address] | | | SERVICES, CORE | [address] | | | + + + + + ALBUMIN, PLASMA (05/04/2013 9:40 AM PDT) + +---------+ + + + | Component | Value | Ref Range | Performed | Pathologist | | | | | At | Signature | + +---------+ + + + | ALBUMIN, | 2.7 (L) | 3.5 - 4.7 g/dL | [facility] | | | PLASMA | | | LABORATORY | | | (LAB) | | | SERVICES, | | | | | | CORE | | + +---------+ + + + + + | Specimen | + + | Blood - Blood | + + + + + + + | Performing | Address | City/State/Zipcode | Phone Number | | Organization | | | | + + + + + | [facility] | [address] | [place] [address] | | | SERVICES, CORE | [address] | | | + + + + + PHENYTOIN, TOTAL (05/04/2013 9:40 AM PDT) + +---------+ + + + | Component | Value | Ref Range | Performed | Pathologist | | | | | At | Signature | + +---------+ + + + | PHENYTOIN | 3.7 (L) | 10.0 - 20.0 | [facility] | | | CONCENTRATI | | ug/mL | LABORATORY | | | ON | | | SERVICES, | | | | | | CORE | | + +---------+ + + + + + | Specimen | + + | Blood - Blood | + + + + + + + | Performing | Address | City/State/Zipcode | Phone Number | | Organization | | | | + + + + + | [facility] | [address] | [place] [address] | | | SERVICES, CORE | [address] | | | + + + + + CBC (05/04/2013 6:55 AM PDT) + + + + + + | Component | Value | Ref Range | Performed | Pathologist | | | | | At | Signature | + + + + + + | WBC COUNT | 5.9 | 4.4 - 11.0 K/cu | [facility] | | | | | mm | LABORATORY | | | | | | SERVICES, | | | | | | CORE | | + + + + + + | RED CELL | 4.23 | 4.00 - 5.20 | [facility] | | | COUNT | | M/cu mm | LABORATORY | | | | | | SERVICES, | | | | | | CORE | | + + + + + + | HEMOGLOBIN | 14.2 | 12.0 - 16.0 | [facility] | | | | | g/dL | LABORATORY | | | | | | SERVICES, | | | | | | CORE | | + + + + + + | HEMATOCRIT | 43.1 | 36.0 - 46.0 % | [facility] | | | | | | LABORATORY | | | | | | SERVICES, | | | | | | CORE | | + + + + + + | MCV | 101.8 (H) | 80.0 - 96.0 fL | [facility] | | | | | | LABORATORY | | | | | | SERVICES, | | | | | | CORE | | + + + + + + | MCHC | 33.0 (L) | 33.4 - 35.5 | [facility] | | | | | g/dL | LABORATORY | | | | | | SERVICES, | | | | | | CORE | | + + + + + + | RDW | 16.1 (H) | 11.5 - 15.0 % | [facility] | | | | | | LABORATORY | | | | | | SERVICES, | | | | | | CORE | | + + + + + + | PLATELET | 129 (L) | 150 - 400 K/cu | [facility] | | | COUNT | | mm | LABORATORY | | | | | | SERVICES, | | | | | | CORE | | + + + + + + + + | Specimen | + + | Blood - Blood | + + + + + + + | Performing | Address | City/State/Zipcode | Phone Number | | Organization | | | | + + + + + | [facility] | [address] | [place] [address] | | | SERVICES, CORE | [address] | | | + + + + + COMPLETE METABOLIC SET (NA,K,CL,CO2,BUN,CREAT,GLUC,CA,AST,ALT,BILI TOTAL,ALK PHOS,ALB,PROT TOTAL) (05/04/2013 6:55 AM PDT) + +---------+ + + + | Component | Value | Ref Range | Performed | Pathologist | | | | | At | Signature | + +---------+ + + + | GLUCOSE, | 84 | 60 - 99 mg/dL | [facility] | | | PLASMA | | | LABORATORY | | | (LAB) | | | SERVICES, | | | | | | CORE | | + +---------+ + + + | BUN, PLASMA | 20 | 6 - 20 mg/dL | [facility] | | | (LAB) | | | LABORATORY | | | | | | SERVICES, | | | | | | CORE | | + +---------+ + + + | CREATININE | 0.78 | 0.60 - 1.10 | [facility] | | | PLASMA | | mg/dL | LABORATORY | | | (LAB) | | | SERVICES, | | | | | | CORE | | + +---------+ + + + | EGFR | >60 | >60 mL/min | [facility] | | | - | | | LABORATORY | | | [facility] | | | SERVICES, | | | | | | CORE | | + +---------+ + + + | EGFR NON | >60 | >60 mL/min | [facility] | | | -[facility] | | | LABORATORY | | | [facility] | | | SERVICES, | | | | | | CORE | | + +---------+ + + + | SODIUM, | 144 | 136 - 145 | [facility] | | | PLASMA | | mmol/L | LABORATORY | | | (LAB) | | | SERVICES, | | | | | | CORE | | + +---------+ + + + | POTASSIUM, | 3.8 | 3.4 - 5.0 | [facility] | | | PLASMA | | mmol/L | LABORATORY | | | (LAB) | | | SERVICES, | | | | | | CORE | | + +---------+ + + + | CHLORIDE, | 106 | 97 - 108 mmol/L | [facility] | | | PLASMA | | | LABORATORY | | | (LAB) | | | SERVICES, | | | | | | CORE | | + +---------+ + + + | TOTAL CO2, | 28 | 21 - 32 mmol/L | [facility] | | | PLASMA | | | LABORATORY | | | (LAB) | | | SERVICES, | | | | | | CORE | | + +---------+ + + + | CALCIUM, | 8.1 (L) | 8.6 - 10.2 | [facility] | | | PLASMA | | mg/dL | LABORATORY | | | (LAB) | | | SERVICES, | | | | | | CORE | | + +---------+ + + + | BILIRUBIN | 0.2 (L) | 0.3 - 1.2 mg/dL | [facility] | | | TOTAL | | | LABORATORY | | | | | | SERVICES, | | | | | | CORE | | + +---------+ + + + | TOTAL | 5.8 (L) | 6.4 - 8.2 g/dL | [facility] | | | PROTEIN, | | | LABORATORY | | | PLASMA | | | SERVICES, | | | (LAB) | | | CORE | | + +---------+ + + + | ALBUMIN, | 2.5 (L) | 3.5 - 4.7 g/dL | [facility] | | | PLASMA | | | LABORATORY | | | (LAB) | | | SERVICES, | | | | | | CORE | | + +---------+ + + + | ALK PHOS | 200 (H) | 42 - 98 U/L | [facility] | | | | | | LABORATORY | | | | | | SERVICES, | | | | | | CORE | | + +---------+ + + + | AST(SGOT) | 66 (H) | 15 - 41 U/L | [facility] | | | | | | LABORATORY | | | | | | SERVICES, | | | | | | CORE | | + +---------+ + + + | ALT (SGPT) | 98 (H) | 12 - 60 U/L | [facility] | | | | | | LABORATORY | | | | | | SERVICES, | | | | | | CORE | | + +---------+ + + + | ANION | 13 (H) | 4 - 11 mmol/L | [facility] | | | GAP(ALB | | | LABORATORY | | | CORRECTED) | | | SERVICES, | | | | | | CORE | | + +---------+ + + + | POTASSIUM | No Hemo | | [facility] | | | CMNT | | | LABORATORY | | | | | | SERVICES, | | | | | | CORE | | + +---------+ + + + | BILI T CMNT | No Hemo | | [facility] | | | | | | LABORATORY | | | | | | SERVICES, | | | | | | CORE | | + +---------+ + + + | AST CMNT | No Hemo | | [facility] | | | | | | LABORATORY | | | | | | SERVICES, | | | | | | CORE | | + +---------+ + + + | ANION GAP | 10 | mmol/L | [facility] | | | | | | LABORATORY | | | | | | SERVICES, | | | | | | CORE | | + +---------+ + + + + + | Specimen | + + | Blood - Blood | + + + + + | Narrative | Performed At | + + + | GFR is estimated using the MDRD equation recommended by the | [facility] | | National Kidney Disease Education Program. Estimated GFR | LABORATORY | | Interpretive Information: <60 mL/min/1.73 sq m | SERVICES, CORE | | Chronic Kidney Disease <15 mL/min/1.73 sq m | | | Kidney Failure Estimated GFR greater that 60 mL/min/1.73 sq m is of | | | limited clinical value. The MDRD equation is not valid in the | | | following situations: - Patients under 18 years of age - Severe | | | malnutrition or obesity - Vegetarian diet - Rapidly changing kidney | | | function New reference range effective 2013 for Total proteins | | | performed in Core Lab only. | | + + + + + + + + | Performing | Address | City/State/Zipcode | Phone Number | | Organization | | | | + + + + + | [facility] | [address] | [place] [address] | | | SERVICES, CORE | [address] | | | + + + + + EEG ROUTINE (05/04/2013) + + + | Narrative | Performed At | + + + | Patient Name: Keo Rowley Date of : 1965 Medical | [facility] - | | Record Number: [id number] Date of Test: 05/04/2013 Place of Service: | [place], | | [facility] [phone] [facility] Department: EEG [facility] - [phone] | POINT OF CARE | | ROUTINE EEG Indication: Keo Rowley is a 47 y.o. woman with a | TESTS | | questionable history of seizures (records indicate yes, patient says | | | no). Neurology was consulted for evaluation of a spell that lasted | | | 20-30 seconds where the patient had behavioral arrest followed by | | | "shaking." Per report this was followed by approximately 5 minutes | | | of confusion. There was no reported head deviation, no eye deviation, | | | no tongue biting or bowel/bladder incontinence (pt had amezcua in at | | | the time). She is currently on three seizure medications, two of | | | which were reportedly started for seizure prevention. | | | Medications: divalproex DR (aka DEPAKOTE) tablet 500 mg, 500 mg, | | | Oral, DAILY gabapentin (aka NEURONTIN) tablet 600 mg, 600 mg, Oral, | | | TID PARoxetine (aka PAXIL) tablet 20 mg, 20 mg, Oral, DAILY | | | phenytoin ER (aka DILANTIN) capsule 100 mg, 100 mg, Oral, TID | | | risperiDONE (aka RISPERDAL) tablet 4 mg, 4 mg, Oral, HS | | | Methods: This study was a Routine EEG with a duration of 24 minutes. | | | The digital recording was performed with routine electrodes applied | | | according to the 10-20 electrode placement system. The record | | | included video, EKG, and EOG monitoring. EEG was reviewed | | | electronically. Automated digital spike and seizure detection | | | analysis was used, along with patient-activated alarms and nursing | | | observations. EEG Description Interictal Record: The record | | | shows a symmetric, well-modulated, posterior dominant rhythm of 8.5 | | | Hz that attenuates with eye opening. Photic stimulation results in a | | | symmetric photic driving response. Hyperventilation is not performed. | | | The drowsy state is recorded, characterized by additional delta | | | frequency slowing and drop-out of eye blink and myogenic artifact. | | | Sleep architecture is not present. Events/Seizures: No events or | | | seizures are recorded. EKG: The single-channel EKG recording | | | shows a normal sinus rhythm. Interpretation: This is a normal | | | awake and drowsy EEG. A normal routine EEG does not rule out a | | | clinical diagnosis of epilepsy. Biju Markham M.D. Epilepsy | | | Attending Addendum: I read the EEG independently and agree with | | | the interpretation as documented in the trainee's note which I have | | | edited as appropriate. Kylee Flynn M.D. Suggested | | | Modifier: GC - Resident Present Suggested CPT: 08209 - EEG Routine | | | Awake Only Suggested Dx: 780.39 - Convulsions | | + + + + + + + + | Performing | Address | City/State/Zipcode | Phone Number | | Organization | | | | + + + + + | [facility] | [address] | [place], [place] | | | [facility] [place] [facility] | [address] | [address] | | | TESTS | | | | + + + + + RADIOLOGY (05/04/2013 12:00 AM PDT) + + + | Narrative | Performed At | + + + | | | | | | + + + + + | Procedure Note | + + | Xuan Palumbo - 05/04/2013 8:29 PM PDT | + + TRANSTHORACIC ECHOCARDIOGRAM, ADULT (05/04/2013 12:00 AM PDT) + + + | Narrative | Performed At | + + + | | | | | | + + + + + | Procedure Note | + + | Xuan Palumbo - 05/04/2013 5:58 PM PDT | + + MAGNESIUM, PLASMA (05/03/2013 6:32 PM PDT) + +-------+ + + + | Component | Value | Ref Range | Performed | Pathologist | | | | | At | Signature | + +-------+ + + + | MAGNESIUM,P | 1.9 | 1.8 - 2.5 mg/dL | [facility] | | | LASMA | | | LABORATORY | | | | | | SERVICES, | | | | | | CORE | | + +-------+ + + + + + | Specimen | + + | Blood - Blood | + + + + + + + | Performing | Address | City/State/Zipcode | Phone Number | | Organization | | | | + + + + + | [facility] | [address] | [place] [address] | | | SERVICES, CORE | [address] | | | + + + + + BASIC METABOLIC SET (NA, K, CL, TCO2, BUN, CR, GLU, CA) (05/03/2013 6:32 PM PDT) + +---------+ + + + | Component | Value | Ref Range | Performed | Pathologist | | | | | At | Signature | + +---------+ + + + | GLUCOSE, | 131 (H) | 60 - 99 mg/dL | [facility] | | | PLASMA | | | LABORATORY | | | (LAB) | | | SERVICES, | | | | | | CORE | | + +---------+ + + + | BUN, PLASMA | 25 (H) | 6 - 20 mg/dL | [facility] | | | (LAB) | | | LABORATORY | | | | | | SERVICES, | | | | | | CORE | | + +---------+ + + + | CREATININE | 0.85 | 0.60 - 1.10 | [facility] | | | PLASMA | | mg/dL | LABORATORY | | | (LAB) | | | SERVICES, | | | | | | CORE | | + +---------+ + + + | EGFR | >60 | >60 mL/min | [facility] | | | - | | | LABORATORY | | | [facility] | | | SERVICES, | | | | | | CORE | | + +---------+ + + + | EGFR NON | >60 | >60 mL/min | [facility] | | | -[facility] | | | LABORATORY | | | [facility] | | | SERVICES, | | | | | | CORE | | + +---------+ + + + | SODIUM, | 141 | 136 - 145 | [facility] | | | PLASMA | | mmol/L | LABORATORY | | | (LAB) | | | SERVICES, | | | | | | CORE | | + +---------+ + + + | POTASSIUM, | 4.0 | 3.4 - 5.0 | [facility] | | | PLASMA | | mmol/L | LABORATORY | | | (LAB) | | | SERVICES, | | | | | | CORE | | + +---------+ + + + | CHLORIDE, | 104 | 97 - 108 mmol/L | [facility] | | | PLASMA | | | LABORATORY | | | (LAB) | | | SERVICES, | | | | | | CORE | | + +---------+ + + + | TOTAL CO2, | 27 | 21 - 32 mmol/L | [facility] | | | PLASMA | | | LABORATORY | | | (LAB) | | | SERVICES, | | | | | | CORE | | + +---------+ + + + | CALCIUM, | 8.0 (L) | 8.6 - 10.2 | [facility] | | | PLASMA | | mg/dL | LABORATORY | | | (LAB) | | | SERVICES, | | | | | | CORE | | + +---------+ + + + | ANION GAP | 10 | mmol/L | [facility] | | | | | | LABORATORY | | | | | | SERVICES, | | | | | | CORE | | + +---------+ + + + | POTASSIUM | No Hemo | | [facility] | | | CMNT | | | LABORATORY | | | | | | SERVICES, | | | | | | CORE | | + +---------+ + + + + + | Specimen | + + | Blood - Blood | + + + + + | Narrative | Performed At | + + + | GFR is estimated using the MDRD equation recommended by the | [facility] | | National Kidney Disease Education Program. Estimated GFR | LABORATORY | | Interpretive Information: <60 mL/min/1.73 sq m | [facility], CORE | | Chronic Kidney Disease <15 mL/min/1.73 sq m | | | Kidney Failure Estimated GFR greater that 60 mL/min/1.73 sq m is of | | | limited clinical value. The MDRD equation is not valid in the | | | following situations: - Patients under 18 years of age - Severe | | | malnutrition or obesity - Vegetarian diet - Rapidly changing kidney | | | function | | + + + + + + + + | Performing | Address | City/State/Zipcode | Phone Number | | Organization | | | | + + + + + | [facility] | [address] | [place] [address] | | | [facility] | [address] | | | + + + + + PHENYTOIN, FREE & TOTAL (05/03/2013 6:32 PM PDT) + + + + + + | Component | Value | Ref Range | Performed | Pathologist | | | | | At | Signature | + + + + + + | PHENYTOIN | 2 (L) | 10 - 20 ug/mL | [facility] | | | CONC, TOTAL | | | REFERENCE | | | | | | LAB | | + + + + + + | % BOUND | 75.0 (L) | 85.0 - 95.0 % | [facility] | | | PHENYTOIN | | | REFERENCE | | | | | | LAB | | + + + + + + | FREE | 0.5 (L) | 1.0 - 2.0 ug/mL | [facility] | | | PHENYTOIN | | | REFERENCE | | | CONC | | | LAB | | + + + + + + + + | Specimen | + + | Blood - Blood | + + + + + | Narrative | Performed At | + + + | Toxic Level: Total: >30 ug/mL Serious: >160 ug/mL | [facility] | | Test performed by: [employer] [address] | REFERENCE LAB | | [place] [address] | | + + + + + + + + | Performing | Address | City/State/Zipcode | Phone Number | | Organization | | | | + + + + + | [facility] | | | | + + + + + | [facility] | see below | | | + + + + + VALPROIC ACID, PLASMA (05/03/2013 6:32 PM PDT) + + + + + + | Component | Value | Ref Range | Performed | Pathologist | | | | | At | Signature | + + + + + + | VALPROIC | 33.0 (L) | 50.0 - 100.0 | [facility] | | | ACID | | ug/mL | LABORATORY | | | | | | SERVICES, | | | | | | CORE | | + + + + + + + + | Specimen | + + | Blood - Blood | + + + + + + + | Performing | Address | City/State/Zipcode | Phone Number | | Organization | | | | + + + + + | [facility] | [address] | [place] [address] | | | SERVICES, CORE | [address] | | | + + + + + CULTURE, URINE BACTI (05/03/2013 9:09 AM PDT) + + + + + + | Component | Value | Ref Range | Performed | Pathologist | | | | | At | Signature | + + + + + + | SPECIMEN | Urine | | [facility] - | | | TYPE | | | [facility] - | | | | | | [place] | | + + + + + + | SOURCE BODY | Urine | | [facility] - | | | SITE | | | [facility] - | | | | | | [place] | | + + + + + + | CULTURE | C UrineSource: Urine | | [facility] - | | | RESULT | | | [facility] - | | | | Final CULTURE | | [place] | | | | RESULT:No growth (<1000 | | | | | | col/ml) after 24 hours | | | | + + + + + + + + | Specimen | + + | Urine - Urine | + + + + + + + | Performing | Address | City/State/Zipcode | Phone Number | | Organization | | | | + + + + + | [email or web address] | [address] | [place] [address] | | | [facility] | | | | + + + + + ROZ WOLFE ONLY (05/03/2013 9:09 AM PDT) + + + + + + | Component | Value | Ref Range | Performed | Pathologist | | | | | At | Signature | + + + + + + | COLOR(UR) | Amina | | [facility] | | | | | | LABORATORY | | | | | | SERVICES, | | | | | | CORE | | + + + + + + | APPEARANCE | Mod. Cloudy | | [facility] | | | | | | LABORATORY | | | | | | SERVICES, | | | | | | CORE | | + + + + + + | GLUCOSE(UR) | Negative | Negative, 50.0 | [facility] | | | | | mg/dL | LABORATORY | | | | | | SERVICES, | | | | | | CORE | | + + + + + + | PROTEIN(LAB | 100.0 (A) | Negative, 30.0 | [facility] | | | ) | | mg/dL | LABORATORY | | | | | | SERVICES, | | | | | | CORE | | + + + + + + | BILIRUBIN | Negative | Negative | [facility] | | | | | | LABORATORY | | | | | | SERVICES, | | | | | | CORE | | + + + + + + | UROBILINOGE | 2.0 (A) | <2.0 mg/dL | [facility] | | | N | | | LABORATORY | | | | | | SERVICES, | | | | | | CORE | | + + + + + + | PH(UR) | 5.0 | 5.0 - 8.0 | [facility] | | | | | | LABORATORY | | | | | | SERVICES, | | | | | | CORE | | + + + + + + | BLOOD | Large (A) | Negative | [facility] | | | | | | LABORATORY | | | | | | SERVICES, | | | | | | CORE | | + + + + + + | KETONES | Negative | Negative mg/dL | [facility] | | | | | | LABORATORY | | | | | | SERVICES, | | | | | | CORE | | + + + + + + | NITRITES | Negative | Negative | [facility] | | | | | | LABORATORY | | | | | | SERVICES, | | | | | | CORE | | + + + + + + | LEUKOCYTE | Moderate (A) | Negative | [facility] | | | ESTERASE | | | LABORATORY | | | | | | SERVICES, | | | | | | CORE | | + + + + + + | SPECIFIC | 1.023 | 1.005 - 1.030 | [facility] | | | GRAVITY | | | LABORATORY | | | | | | SERVICES, | | | | | | CORE | | + + + + + + + + | Specimen | + + | Urine - Urine | + + + + + + + | Performing | Address | City/State/Zipcode | Phone Number | | Organization | | | | + + + + + | [facility] | [address] | [place] [address] | | | SERVICES, CORE | [address] | | | + + + + + URINE, MICROSCOPIC EXAM (05/03/2013 9:09 AM PDT) + +---------+ + + + | Component | Value | Ref Range | Performed | Pathologist | | | | | At | Signature | + +---------+ + + + | RED CELLS | 495 (H) | 0 - 3 /hpf | [facility] | | | | | | LABORATORY | | | | | | SERVICES, | | | | | | CORE | | + +---------+ + + + | WHITE CELLS | 134 (H) | 0 - 5 /hpf | [facility] | | | | | | LABORATORY | | | | | | SERVICES, | | | | | | CORE | | + +---------+ + + + | WBC CLUMPS | Present | | [facility] | | | | | | LABORATORY | | | | | | SERVICES, | | | | | | CORE | | + +---------+ + + + | BACTERIA | Few (A) | None /hpf | [facility] | | | | | | LABORATORY | | | | | | SERVICES, | | | | | | CORE | | + +---------+ + + + | YEAST (LAB) | None | None /hpf | [facility] | | | | | | LABORATORY | | | | | | SERVICES, | | | | | | CORE | | + +---------+ + + + | SQUAMOUS | Few (A) | None /hpf | [facility] | | | EPITHELIAL | | | LABORATORY | | | | | | SERVICES, | | | | | | CORE | | + +---------+ + + + | MUCOUS | Few (A) | None /hpf | [facility] | | | | | | LABORATORY | | | | | | SERVICES, | | | | | | CORE | | + +---------+ + + + | TRICHOMONAS | None | None /hpf | [facility] | | | | | | LABORATORY | | | | | | SERVICES, | | | | | | CORE | | + +---------+ + + + | NON-SQUAMOU | Clint (A) | None /hpf | [facility] | | | S EPITH | | | LABORATORY | | | | | | SERVICES, | | | | | | CORE | | + +---------+ + + + | HYALINE | 0 | 0 - 2 /lpf | [facility] | | | CASTS | | | LABORATORY | | | | | | SERVICES, | | | | | | CORE | | + +---------+ + + + | GRANULAR | 0 | 0 - 2 /lpf | [facility] | | | [facility] | | | LABORATORY | | | | | | SERVICES, | | | | | | CORE | | + +---------+ + + + | CELLULAR | 0 | <=0 /lpf | [facility] | | | [facility] | | | LABORATORY | | | | | | SERVICES, | | | | | | CORE | | + +---------+ + + + | TRIPLE P04 | None | None /hpf | [facility] | | | [facility] | | | LABORATORY | | | | | | SERVICES, | | | | | | CORE | | + +---------+ + + + | CALCIUM | None | None /hpf | [facility] | | | OXALATE | | | LABORATORY | | | NAYELI | | | SERVICES, | | | | | | CORE | | + +---------+ + + + | URIC ACID | None | None /hpf | [facility] | | | [facility] | | | LABORATORY | | | | | | SERVICES, | | | | | | CORE | | + +---------+ + + + | AMORPHOUS | None | None /hpf | [facility] | | | [facility] | | | LABORATORY | | | | | | SERVICES, | | | | | | CORE | | + +---------+ + + + + + | Specimen | + + | Urine - Urine | + + + + + + + | Performing | Address | City/State/Zipcode | Phone Number | | Organization | | | | + + + + + | [facility] | [address] | [place] [address] | | | SERVICES, CORE | [address] | | | + + + + + URINE SCREEN FOR CULTURE (05/03/2013 9:09 AM PDT) + + + + + + | Component | Value | Ref Range | Performed | Pathologist | | | | | At | Signature | + + + + + + | URINE | Positive (A) | Negative | [facility] | | | SCREEN FOR | | | LABORATORY | | | CULTURE | | | SERVICES, | | | | | | CORE | | + + + + + + + + | Specimen | + + | Urine - Urine | + + + + + | Narrative | Performed At | + + + | Culture Screen Positive, specimen sent for culture. | [facility] | | | LABORATORY | | | [facility] | + + + + + + + + | Performing | Address | City/State/Zipcode | Phone Number | | Organization | | | | + + + + + | [facility] | [address] | [place] [address] | | | [facility] | [address] | | | + + + + + NHUNG (05/03/2013 7:35 AM PDT) + + + + + + | Component | Value | Ref Range | Performed | Pathologist | | | | | At | Signature | + + + + + + | WBC COUNT | 7.8 | 4.4 - 11.0 K/cu | [facility] | | | | | mm | LABORATORY | | | | | | SERVICES, | | | | | | CORE | | + + + + + + | RED CELL | 4.51 | 4.00 - 5.20 | [facility] | | | COUNT | | M/cu mm | LABORATORY | | | | | | SERVICES, | | | | | | CORE | | + + + + + + | HEMOGLOBIN | 14.7 | 12.0 - 16.0 | [facility] | | | | | g/dL | LABORATORY | | | | | | SERVICES, | | | | | | CORE | | + + + + + + | HEMATOCRIT | 45.6 | 36.0 - 46.0 % | [facility] | | | | | | LABORATORY | | | | | | SERVICES, | | | | | | CORE | | + + + + + + | MCV | 101.1 (H) | 80.0 - 96.0 fL | [facility] | | | | | | LABORATORY | | | | | | SERVICES, | | | | | | CORE | | + + + + + + | MCHC | 32.3 (L) | 33.4 - 35.5 | [facility] | | | | | g/dL | LABORATORY | | | | | | SERVICES, | | | | | | CORE | | + + + + + + | RDW | 16.1 (H) | 11.5 - 15.0 % | [facility] | | | | | | LABORATORY | | | | | | SERVICES, | | | | | | CORE | | + + + + + + | PLATELET | 152 | 150 - 400 K/cu | [facility] | | | COUNT | | mm | LABORATORY | | | | | | SERVICES, | | | | | | CORE | | + + + + + + + + | Specimen | + + | Blood - Blood | + + + + + + + | Performing | Address | City/State/Zipcode | Phone Number | | Organization | | | | + + + + + | [facility] | [address] | [place] [address] | | | SERVICES, CORE | [address] | | | + + + + + COMPLETE METABOLIC SET (NA,K,CL,CO2,BUN,CREAT,GLUC,CA,AST,ALT,BILI TOTAL,ALK PHOS,ALB,PROT TOTAL) (05/03/2013 7:35 AM PDT) + +---------+ + + + | Component | Value | Ref Range | Performed | Pathologist | | | | | At | Signature | + +---------+ + + + | GLUCOSE, | 91 | 60 - 99 mg/dL | [facility] | | | PLASMA | | | LABORATORY | | | (LAB) | | | SERVICES, | | | | | | CORE | | + +---------+ + + + | BUN, PLASMA | 27 (H) | 6 - 20 mg/dL | [facility] | | | (LAB) | | | LABORATORY | | | | | | SERVICES, | | | | | | CORE | | + +---------+ + + + | CREATININE | 0.85 | 0.60 - 1.10 | [facility] | | | PLASMA | | mg/dL | LABORATORY | | | (LAB) | | | SERVICES, | | | | | | CORE | | + +---------+ + + + | EGFR | >60 | >60 mL/min | [facility] | | | - | | | LABORATORY | | | [facility] | | | SERVICES, | | | | | | CORE | | + +---------+ + + + | EGFR NON | >60 | >60 mL/min | [facility] | | | -[facility] | | | LABORATORY | | | [facility] | | | SERVICES, | | | | | | CORE | | + +---------+ + + + | SODIUM, | 140 | 136 - 145 | [facility] | | | PLASMA | | mmol/L | LABORATORY | | | (LAB) | | | SERVICES, | | | | | | CORE | | + +---------+ + + + | POTASSIUM, | 4.1 | 3.4 - 5.0 | [facility] | | | PLASMA | | mmol/L | LABORATORY | | | (LAB) | | | SERVICES, | | | | | | CORE | | + +---------+ + + + | CHLORIDE, | 103 | 97 - 108 mmol/L | [facility] | | | PLASMA | | | LABORATORY | | | (LAB) | | | SERVICES, | | | | | | CORE | | + +---------+ + + + | TOTAL CO2, | 24 | 21 - 32 mmol/L | [facility] | | | PLASMA | | | LABORATORY | | | (LAB) | | | SERVICES, | | | | | | CORE | | + +---------+ + + + | CALCIUM, | 8.4 (L) | 8.6 - 10.2 | [facility] | | | PLASMA | | mg/dL | LABORATORY | | | (LAB) | | | SERVICES, | | | | | | CORE | | + +---------+ + + + | BILIRUBIN | 0.3 | 0.3 - 1.2 mg/dL | [facility] | | | TOTAL | | | LABORATORY | | | | | | SERVICES, | | | | | | CORE | | + +---------+ + + + | TOTAL | 6.2 (L) | 6.4 - 8.2 g/dL | [facility] | | | PROTEIN, | | | LABORATORY | | | PLASMA | | | SERVICES, | | | (LAB) | | | CORE | | + +---------+ + + + | ALBUMIN, | 2.6 (L) | 3.5 - 4.7 g/dL | [facility] | | | PLASMA | | | LABORATORY | | | (LAB) | | | SERVICES, | | | | | | CORE | | + +---------+ + + + | ALK PHOS | 209 (H) | 42 - 98 U/L | [facility] | | | | | | LABORATORY | | | | | | SERVICES, | | | | | | CORE | | + +---------+ + + + | AST(SGOT) | 75 (H) | 15 - 41 U/L | [facility] | | | | | | LABORATORY | | | | | | SERVICES, | | | | | | CORE | | + +---------+ + + + | ALT (SGPT) | 102 (H) | 12 - 60 U/L | [facility] | | | | | | LABORATORY | | | | | | SERVICES, | | | | | | CORE | | + +---------+ + + + | ANION | 16 (H) | 4 - 11 mmol/L | [facility] | | | GAP(ALB | | | LABORATORY | | | CORRECTED) | | | SERVICES, | | | | | | CORE | | + +---------+ + + + | POTASSIUM | No Hemo | | [facility] | | | CMNT | | | LABORATORY | | | | | | SERVICES, | | | | | | CORE | | + +---------+ + + + | BILI T CMNT | No Hemo | | [facility] | | | | | | LABORATORY | | | | | | SERVICES, | | | | | | CORE | | + +---------+ + + + | AST CMNT | No Hemo | | [facility] | | | | | | LABORATORY | | | | | | SERVICES, | | | | | | CORE | | + +---------+ + + + | ANION GAP | 13 | mmol/L | [facility] | | | | | | LABORATORY | | | | | | SERVICES, | | | | | | CORE | | + +---------+ + + + + + | Specimen | + + | Blood - Blood | + + + + + | Narrative | Performed At | + + + | GFR is estimated using the MDRD equation recommended by the | [facility] | | National Kidney Disease Education Program. Estimated GFR | LABORATORY | | Interpretive Information: <60 mL/min/1.73 sq m | SERVICES, CORE | | Chronic Kidney Disease <15 mL/min/1.73 sq m | | | Kidney Failure Estimated GFR greater that 60 mL/min/1.73 sq m is of | | | limited clinical value. The MDRD equation is not valid in the | | | following situations: - Patients under 18 years of age - Severe | | | malnutrition or obesity - Vegetarian diet - Rapidly changing kidney | | | function New reference range effective 2013 for Total proteins | | | performed in Core Lab only. | | + + + + + + + + | Performing | Address | City/State/Zipcode | Phone Number | | Organization | | | | + + + + + | [facility] | [address] | [place] [address] | | | SERVICES, CORE | [address] | | | + + + + + HEPATITIS C AB W/CONFIRMATION REFLEX PCR (05/03/2013 7:35 AM PDT) + + + + + + | Component | Value | Ref Range | Performed | Pathologist | | | | | At | Signature | + + + + + + | HEPATITIS C | Negative | Negative | [facility] | | | AB | | | [facility] - | | | | | | [place] | | + + + + + + + + | Specimen | + + | Blood - Blood | + + + + + + + | Performing | Address | City/State/Zipcode | Phone Number | | Organization | | | | + + + + + | [facility] | [address] | [place] [address] | | | [place] | | | | + + + + + TSH (05/03/2013 7:35 AM PDT) + + + + + + | Component | Value | Ref Range | Performed | Pathologist | | | | | At | Signature | + + + + + + | TSH | 3.90Comment: Normal TSH | 0.34 - 5.60 | [facility] | | | | value in : | mcIU/mL | [facility] - | | | | 0.5-2.5. uIU/ml | | [place] | | + + + + + + + + | Specimen | + + | Blood - Blood | + + + + + + + | Performing | Address | City/State/Zipcode | Phone Number | | Organization | | | | + + + + + | [facility] | [address] | [place] [address] | | | [place] | | | | + + + + + 12 LEAD ECG (05/03/2013 12:20 AM PDT) + + + + + + | Component | Value | Ref Range | Performed | Pathologist | | | | | At | Signature | + + + + + + | VENTRICULAR | 71 | BPM | [facility] | | | RATE | | | OF | | | | | | CARDIOLOGY | | + + + + + + | ATRIAL RATE | 71 | BPM | [facility] | | | | | | OF | | | | | | CARDIOLOGY | | + + + + + + | P-R | 200 | ms | [facility] | | | INTERVAL | | | OF | | | | | | CARDIOLOGY | | + + + + + + | QRS | 74 | ms | [facility] | | | DURATION | | | OF | | | | | | CARDIOLOGY | | + + + + + + | QT | 442 | ms | [facility] | | | | | | OF | | | | | | CARDIOLOGY | | + + + + + + | QTC | 480 | ms | [facility] | | | | | | OF | | | | | | CARDIOLOGY | | + + + + + + | P AXIS | 71 | degrees | [facility] | | | | | | OF | | | | | | CARDIOLOGY | | + + + + + + | R AXIS | 270 | degrees | [facility] | | | | | | OF | | | | | | CARDIOLOGY | | + + + + + + | T AXIS | -8 | degrees | [facility] | | | | | | OF | | | | | | CARDIOLOGY | | + + + + + + | EKG | Normal sinus | | [facility] | | | DIAGNOSIS | rhythmPossible Left | | OF | | | | atrial enlargementRight | | CARDIOLOGY | | | | superior axis | | | | | | deviationPossible Right | | | | | | ventricular | | | | | | hypertrophySeptal | | | | | | infarct , age | | | | | | undeterminedPossible | | | | | | Inferior infarct , age | | | | | | undeterminedAbnormal | | | | | | ECGConfirmed by | | | | | | ROSA ISELA GALVAN | | | | | | ([id number]) on 05/24/2013 | | | | | | 9:44:07 PM | | | | + + + + + + + + | Specimen | + + | | + + + + + | Narrative | Performed At | + + + | Please click | [facility] | | on view image for the detailed interpretation from [email or web address] results. | CARDIOLOGY | + + + + + | Procedure Note | + + | Interface, Cardiology Results - 05/24/2013 9:44 PM PDT Please click on view image | | for the detailed interpretation from [email or web address] results. | + + + + + + + | Performing | Address | City/State/Zipcode | Phone Number | | Organization | | | | + + + + + | [facility] | [address] | [place], [place] | | | CARDIOLOGY | [address] | [address] | | + + + + + 12 LEAD ECG (05/02/2013 11:55 PM PDT) + + + + + + | Component | Value | Ref Range | Performed | Pathologist | | | | | At | Signature | + + + + + + | VENTRICULAR | 75 | BPM | [facility] | | | RATE | | | OF | | | | | | CARDIOLOGY | | + + + + + + | ATRIAL RATE | 75 | BPM | [facility] | | | | | | OF | | | | | | CARDIOLOGY | | + + + + + + | QRS | 30 | ms | [facility] | | | DURATION | | | OF | | | | | | CARDIOLOGY | | + + + + + + | QT | 364 | ms | [facility] | | | | | | OF | | | | | | CARDIOLOGY | | + + + + + + | QTC | 407 | ms | [facility] | | | | | | OF | | | | | | CARDIOLOGY | | + + + + + + | R AXIS | 93 | degrees | [facility] | | | | | | OF | | | | | | CARDIOLOGY | | + + + + + + | T AXIS | 268 | degrees | [facility] | | | | | | OF | | | | | | CARDIOLOGY | | + + + + + + | EKG | Normal sinus rhythmLow | | [facility] | | | DIAGNOSIS | voltage QRSPossible | | OF | | | | Lateral infarct , age | | CARDIOLOGY | | | | undeterminedMarked ST | | | | | | abnormality, possible | | | | | | inferior subendocardial | | | | | | injuryAbnormal ECG | | | | | | Poor data quality, | | | | | | interpretation may be | | | | | | adversely | | | | | | affectedConfirmed by | | | | | | ROSA ISELA GALVAN | | | | | | ([id number]) on 05/04/2013 | | | | | | 11:36:09 AM | | | | + + + + + + + + | Specimen | + + | | + + + + + | Narrative | Performed At | + + + | Please click | [facility] | | on view image for the detailed interpretation from [email or web address] results. | CARDIOLOGY | + + + + + | Procedure Note | + + | Interface, Cardiology Results - 05/04/2013 11:36 AM PDT Please click on view image | | for the detailed interpretation from [email or web address] results. | + + + + + + + | Performing | Address | City/State/Zipcode | Phone Number | | Organization | | | | + + + + + | [facility] | [address] | [place], [place] | | | CARDIOLOGY | [address] | [address] | | + + + + + X-RAY CHEST 2 VIEW (05/02/2013 11:35 PM PDT) + + + + + + | Component | Value | Ref Range | Performed | Pathologist | | | | | At | Signature | + + + + + + | CHEST, 2 | STUDY:CHEST 2 VIEWS | | | | | VIEWS [place] | 05/02/13 23:35:00 | | | | | [facility] | COMPARISON:No prior | | | | | | INDICATION: Shortness of | | | | | | breath FINDINGS:The | | | | | | cardiac silhouette is | | | | | | mildly enlarged. There | | | | | | is a small left | | | | | | pleuraleffusion. There | | | | | | is vascular | | | | | | indistinctness in the | | | | | | lower lobes. There is | | | | | | nofocal consolidation. | | | | | | There is no | | | | | | pneumothorax. The | | | | | | osseous structures | | | | | | areintact.. IMPRESSION: | | | | | | Mild cardiomegaly, small | | | | | | and effusion and trace | | | | | | edema. Attending | | | | | | Radiologists: KIMBERLEE | | | | | | ORALIA BURGESSuthor: KIMBERLEE | | | | | | MD JENIFER I have | | | | | | personally viewed this | | | | | | procedure/exam, reviewed | | | | | | this report, and | | | | | | madechanges to it where | | | | | | appropriate. | | | | | | Final/Electronically | | | | | | signed / KIMBERLEE BURGESS | | | | | | 05/03/2013 9:25 AM | | | | + + + + + + + + | Specimen | + + | | + + + +---------+ + + | Performing | Address | City/State/Zipcode | Phone Number | | Organization | | | | + +---------+ + + | [facility] | | | | | RADIOLOGY | | | | + +---------+ + + CBC AND AUTO DIFF (05/02/2013 10:10 PM PDT) + + + + + + | Component | Value | Ref Range | Performed | Pathologist | | | | | At | Signature | + + + + + + | WBC COUNT | 8.5 | 4.4 - 11.0 K/cu | [facility] | | | | | mm | LABORATORY | | | | | | SERVICES, | | | | | | CORE | | + + + + + + | RED CELL | 4.88 | 4.00 - 5.20 | [facility] | | | COUNT | | M/cu mm | LABORATORY | | | | | | SERVICES, | | | | | | CORE | | + + + + + + | HEMOGLOBIN | 16.1 (H) | 12.0 - 16.0 | [facility] | | | | | g/dL | LABORATORY | | | | | | SERVICES, | | | | | | CORE | | + + + + + + | HEMATOCRIT | 49.3 (H) | 36.0 - 46.0 % | [facility] | | | | | | LABORATORY | | | | | | SERVICES, | | | | | | CORE | | + + + + + + | MCV | 101.1 (H) | 80.0 - 96.0 fL | [facility] | | | | | | LABORATORY | | | | | | SERVICES, | | | | | | CORE | | + + + + + + | MCHC | 32.7 (L) | 33.4 - 35.5 | [facility] | | | | | g/dL | LABORATORY | | | | | | SERVICES, | | | | | | CORE | | + + + + + + | RDW | 16.0 (H) | 11.5 - 15.0 % | [facility] | | | | | | LABORATORY | | | | | | SERVICES, | | | | | | CORE | | + + + + + + | PLATELET | 153 | 150 - 400 K/cu | [facility] | | | COUNT | | mm | LABORATORY | | | | | | SERVICES, | | | | | | CORE | | + + + + + + | NEUTROPHIL | 82 (H) | 50 - 70 % | [facility] | | | % | | | LABORATORY | | | | | | SERVICES, | | | | | | CORE | | + + + + + + | LYMPHOCYTE | 14 (L) | 18 - 42 % | [facility] | | | % | | | LABORATORY | | | | | | SERVICES, | | | | | | CORE | | + + + + + + | MONOCYTE % | 4 | 2 - 8 % | [facility] | | | | | | LABORATORY | | | | | | SERVICES, | | | | | | CORE | | + + + + + + | EOS % | 0 (L) | 1 - 3 % | [facility] | | | | | | LABORATORY | | | | | | SERVICES, | | | | | | CORE | | + + + + + + | BASO % | 0 | 0 - 2 % | [facility] | | | | | | LABORATORY | | | | | | SERVICES, | | | | | | CORE | | + + + + + + | NEUTROPHIL | 7.0 | 1.8 - 7.7 K/cu | [facility] | | | # | | mm | LABORATORY | | | | | | SERVICES, | | | | | | CORE | | + + + + + + | LYMPHOCYTE | 1.2 | 1.0 - 4.8 K/cu | [facility] | | | # | | mm | LABORATORY | | | | | | SERVICES, | | | | | | CORE | | + + + + + + | MONOCYTE # | 0.4 | 0.0 - 0.8 K/cu | [facility] | | | | | mm | LABORATORY | | | | | | SERVICES, | | | | | | CORE | | + + + + + + | EOS # | 0.0 | 0.0 - 0.5 K/cu | [facility] | | | | | mm | LABORATORY | | | | | | SERVICES, | | | | | | CORE | | + + + + + + | BASO # | 0.0 | 0.0 - 0.2 K/cu | [facility] | | | | | mm | LABORATORY | | | | | | SERVICES, | | | | | | CORE | | + + + + + + + + | Specimen | + + | Blood - Blood | + + + + + + + | Performing | Address | City/State/Zipcode | Phone Number | | Organization | | | | + + + + + | [facility] | [address] | [place] [address] | | | SERVICES, [place] | [address] | | | + + + + + APTT (ACT. PART. THROMBO TIME) (05/02/2013 10:10 PM PDT) + +-------+ + + + | Component | Value | Ref Range | Performed | Pathologist | | | | | At | Signature | + +-------+ + + + | APTT | 29.0 | 26.0 - 36.0 | [facility] | | | | | seconds | LABORATORY | | | | | | SERVICES, | | | | | | CORE | | + +-------+ + + + + + | Specimen | + + | Blood - Blood | + + + + + | Narrative | Performed At | + + + | APTT Therapeutic Range: (75 - | [facility] | | 120) sec Heparin levels of 0.35 - 0.7 U/mL | LABORATORY | | | SERVICES, CORE | + + + + + + + + | Performing | Address | City/State/Zipcode | Phone Number | | Organization | | | | + + + + + | [facility] | [address] | [place] [address] | | | SERVICES, CORE | [address] | | | + + + + + INR (05/02/2013 10:10 PM PDT) + + + + + + | Component | Value | Ref Range | Performed | Pathologist | | | | | At | Signature | + + + + + + | INR | 1.23 (H) | 0.90 - 1.20 INR | [facility] | | | | | | LABORATORY | | | | | | SERVICES, | | | | | | CORE | | + + + + + + + + | Specimen | + + | Blood - Blood | + + + + + | Narrative | Performed At | + + + | INR Therapeutic ranges for full anticoagulation: INR for | [facility] | | Venous Thromboembolism (2.0 - 3.0) INR INR for | LABORATORY | | most patients with mech. valves (2.5 - 3.5) INR | SERVICES, CORE | + + + + + + + + | Performing | Address | City/State/Zipcode | Phone Number | | Organization | | | | + + + + + | [facility] | [address] | [place] [address] | | | SERVICES, CORE | [address] | | | + + + + + COMPLETE METABOLIC SET (NA,K,CL,CO2,BUN,CREAT,GLUC,CA,AST,ALT,BILI TOTAL,ALK PHOS,ALB,PROT TOTAL) (05/02/2013 10:10 PM PDT) + +---------+ + + + | Component | Value | Ref Range | Performed | Pathologist | | | | | At | Signature | + +---------+ + + + | GLUCOSE, | 121 (H) | 60 - 99 mg/dL | [facility] | | | PLASMA | | | LABORATORY | | | (LAB) | | | SERVICES, | | | | | | CORE | | + +---------+ + + + | BUN, PLASMA | 23 (H) | 6 - 20 mg/dL | [facility] | | | (LAB) | | | LABORATORY | | | | | | SERVICES, | | | | | | CORE | | + +---------+ + + + | CREATININE | 0.93 | 0.60 - 1.10 | [facility] | | | PLASMA | | mg/dL | LABORATORY | | | (LAB) | | | SERVICES, | | | | | | CORE | | + +---------+ + + + | EGFR | >60 | >60 mL/min | [facility] | | | - | | | LABORATORY | | | [facility] | | | SERVICES, | | | | | | CORE | | + +---------+ + + + | EGFR NON | >60 | >60 mL/min | [facility] | | | -[facility] | | | LABORATORY | | | [facility] | | | SERVICES, | | | | | | CORE | | + +---------+ + + + | SODIUM, | 139 | 136 - 145 | [facility] | | | PLASMA | | mmol/L | LABORATORY | | | (LAB) | | | SERVICES, | | | | | | CORE | | + +---------+ + + + | POTASSIUM, | 4.7 | 3.4 - 5.0 | [facility] | | | PLASMA | | mmol/L | LABORATORY | | | (LAB) | | | SERVICES, | | | | | | CORE | | + +---------+ + + + | CHLORIDE, | 102 | 97 - 108 mmol/L | [facility] | | | PLASMA | | | LABORATORY | | | (LAB) | | | SERVICES, | | | | | | CORE | | + +---------+ + + + | TOTAL CO2, | 23 | 21 - 32 mmol/L | [facility] | | | PLASMA | | | LABORATORY | | | (LAB) | | | SERVICES, | | | | | | CORE | | + +---------+ + + + | CALCIUM, | 8.8 | 8.6 - 10.2 | [facility] | | | PLASMA | | mg/dL | LABORATORY | | | (LAB) | | | SERVICES, | | | | | | CORE | | + +---------+ + + + | BILIRUBIN | 0.5 | 0.3 - 1.2 mg/dL | [facility] | | | TOTAL | | | LABORATORY | | | | | | SERVICES, | | | | | | CORE | | + +---------+ + + + | TOTAL | 7.2 | 6.4 - 8.2 g/dL | [facility] | | | PROTEIN, | | | LABORATORY | | | PLASMA | | | SERVICES, | | | (LAB) | | | CORE | | + +---------+ + + + | ALBUMIN, | 3.0 (L) | 3.5 - 4.7 g/dL | [facility] | | | PLASMA | | | LABORATORY | | | (LAB) | | | SERVICES, | | | | | | CORE | | + +---------+ + + + | ALK PHOS | 227 (H) | 42 - 98 U/L | [facility] | | | | | | LABORATORY | | | | | | SERVICES, | | | | | | CORE | | + +---------+ + + + | AST(SGOT) | 78 (H) | 15 - 41 U/L | [facility] | | | | | | LABORATORY | | | | | | SERVICES, | | | | | | CORE | | + +---------+ + + + | ALT (SGPT) | 113 (H) | 12 - 60 U/L | [facility] | | | | | | LABORATORY | | | | | | SERVICES, | | | | | | CORE | | + +---------+ + + + | ANION | 16 (H) | 4 - 11 mmol/L | [facility] | | | GAP(ALB | | | LABORATORY | | | CORRECTED) | | | SERVICES, | | | | | | CORE | | + +---------+ + + + | POTASSIUM | No Hemo | | [facility] | | | CMNT | | | LABORATORY | | | | | | SERVICES, | | | | | | CORE | | + +---------+ + + + | BILI T CMNT | No Hemo | | [facility] | | | | | | LABORATORY | | | | | | SERVICES, | | | | | | CORE | | + +---------+ + + + | AST CMNT | No Hemo | | [facility] | | | | | | LABORATORY | | | | | | SERVICES, | | | | | | CORE | | + +---------+ + + + | ANION GAP | 14 | mmol/L | [facility] | | | | | | LABORATORY | | | | | | SERVICES, | | | | | | CORE | | + +---------+ + + + + + | Specimen | + + | Blood - Blood | + + + + + | Narrative | Performed At | + + + | GFR is estimated using the MDRD equation recommended by the | [facility] | | National Kidney Disease Education Program. Estimated GFR | LABORATORY | | Interpretive Information: <60 mL/min/1.73 sq m | SERVICES, CORE | | Chronic Kidney Disease <15 mL/min/1.73 sq m | | | Kidney Failure Estimated GFR greater that 60 mL/min/1.73 sq m is of | | | limited clinical value. The MDRD equation is not valid in the | | | following situations: - Patients under 18 years of age - Severe | | | malnutrition or obesity - Vegetarian diet - Rapidly changing kidney | | | function New reference range effective 2013 for Total proteins | | | performed in Core Lab only. | | + + + + + + + + | Performing | Address | City/State/Zipcode | Phone Number | | Organization | | | | + + + + + | [facility] | [address] | [place] [address] | | | SERVICES, CORE | [address] | | | + + + + + CARDIOLOGY (05/02/2013 12:00 AM PDT) + + + | Narrative | Performed At | + + + | | | | | | + + + + + | Procedure Note | + + | Xuan Palumbo - 05/11/2013 8:40 AM PDT | + + documented in this encounter Visit Diagnoses + + | Diagnosis | + + | Pulmonary arterial hypertension (HCC) - Primary Other chronic pulmonary heart | | diseases | + + | Dyspnea Other dyspnea and respiratory abnormality | + + | Pulmonary hypertension (HCC) Other chronic pulmonary heart diseases | + + | Cor pulmonale, chronic (HCC) Chronic pulmonary heart disease, unspecified | + + | Right heart failure due to pulmonary hypertension (HCC) Congestive heart failure, | | unspecified | + + | Sleep apnea Unspecified sleep apnea | + + | Morbid obesity with BMI of 45.0-49.9, adult (HCC) | + + | COPD (chronic obstructive pulmonary disease) with chronic bronchitis (HCC) | | Obstructive chronic bronchitis without exacerbation | + + | Anasarca Edema | + + | Seizure disorder (HCC) Unspecified epilepsy without mention of intractable epilepsy | + + | Bipolar affective disorder (HCC) Bipolar disorder, unspecified | + + | Developmental delay Unspecified delay in development | + + documented in this encounter Administered Medications + +--------+ +--------+------+------+ | Medication Order | MAR | Action | Dose | Rate | Site | | | Action | Date | | | | + +--------+ +--------+------+------+ | acetaminophen (aka TYLENOL) | Given | 05/11/20 | 500 mg | | | | tablet 500 mg 500 mg, oral, | | 13 4:48 | | | | | EVERY 6 HOURS NEEDED, Starting | | PM PDT | | | | | [place] 05/03/13 at 0357, Until Sat | | | | | | | 05/12/13 at 1932, mild pain | | | | | | + +--------+ +--------+------+------+ +-------+ +--------+---+---+ | Given | 05/09/20 | 500 mg | | | | | 13 8:28 | | | | | | PM PDT | | | | +-------+ +--------+---+---+ | Given | 05/08/20 | 500 mg | | | | | 13 11:23 | | | | | | PM PDT | | | | +-------+ +--------+---+---+ +---+---+ | | | +---+---+ + +-------+ +---------+---+---+ | albuterol (aka BRITTANIE, | Given | 05/12/20 | 2 puffs | | | | VENTOLIN) 90 mcg/actuation | | 13 9:01 | | | | | inhaler 2 Puff 2 puff, | | AM PDT | | | | | inhalation, FOUR TIMES DAILY, | | | | | | | First dose (after last | | | | | | | modification) on Tue05/08/13 at | | | | | | | 1915, Until Discontinued | | | | | | + +-------+ +---------+---+---+ +-------+ +---------+---+---+ | Given | 05/11/20 | 2 puffs | | | | | 13 10:43 | | | | | | PM PDT | | | | +-------+ +---------+---+---+ | Given | 05/11/20 | 2 puffs | | | | | 13 9:20 | | | | | | AM PDT | | | | +-------+ +---------+---+---+ +---+---+ | | | +---+---+ + +-------+ +---------+---+---+ | albuterol-ipratropium (aka | Given | 05/04/20 | 2 puffs | | | | COMBIVENT) inhaler 2 Puff 2 | | 13 8:40 | | | | | puff, inhalation, FOUR TIMES | | AM PDT | | | | | DAILY, First dose (after last | | | | | | | modification) on [facility] 05/03/13 at | | | | | | | 0900, Until Discontinued | | | | | | + +-------+ +---------+---+---+ +-------+ +---------+---+---+ | Given | 05/03/20 | 2 puffs | | | | | 13 10:59 | | | | | | PM PDT | | | | +-------+ +---------+---+---+ | Given | 05/03/20 | 2 puffs | | | | | 13 3:51 | | | | | | PM PDT | | | | +-------+ +---------+---+---+ +---+---+ | | | +---+---+ + +-------+ +---------+---+---+ | albuterol-ipratropium (aka | Given | 05/08/20 | 2 puffs | | | | COMBIVENT) inhaler 2 Puff 2 | | 13 10:00 | | | | | puff, inhalation, FOUR TIMES | | AM PDT | | | | | DAILY, First dose (after last | | | | | | | modification) on Tue05/04/13 at | | | | | | | 1400, Until Discontinued | | | | | | + +-------+ +---------+---+---+ +-------+ +---------+---+---+ | Given | 05/07/20 | 2 puffs | | | | | 13 9:31 | | | | | | PM PDT | | | | +-------+ +---------+---+---+ | Given | 05/07/20 | 2 puffs | | | | | 13 6:48 | | | | | | PM PDT | | | | +-------+ +---------+---+---+ +---+---+ | | | +---+---+ + +-------+ +--------+---+---+ | ascorbic acid tablet 500 mg | Given | 05/12/20 | 500 mg | | | | 500 mg, oral, TWICE DAILY, First | | 13 8:59 | | | | | dose on Tue05/03/13 at 0900, Until | | AM PDT | | | | | Discontinued | | | | | | + +-------+ +--------+---+---+ +-------+ +--------+---+---+ | Given | 05/11/20 | 500 mg | | | | | 13 9:09 | | | | | | PM PDT | | | | +-------+ +--------+---+---+ | Given | 05/11/20 | 500 mg | | | | | 13 9:18 | | | | | | AM PDT | | | | +-------+ +--------+---+---+ +---+---+ | | | +---+---+ + +-------+ +--------+---+---+ | buPROPion SR (aka | Given | 05/03/20 | 200 mg | | | | WELLBUTRIN-SR) tablet 200 mg 200 | | 13 9:12 | | | | | mg, oral, TWICE DAILY, First | | AM PDT | | | | | dose on [facility] 05/03/13 at 0900, Until | | | | | | | Discontinued | | | | | | + +-------+ +--------+---+---+ +---+---+ | | | +---+---+ + +-------+ +--------+---+---+ | cholecalciferol (Vitamin D3) | Given | 05/12/20 | 2,000 | | | | (aka VITAMIN D-3) tablet 2,000 | | 13 8:57 | Units | | | | Units 2,000 Units, oral, DAILY, | | AM PDT | | | | | First dose on [facility] 05/03/13 at 0900, | | | | | | | Until Discontinued | | | | | | + +-------+ +--------+---+---+ +-------+ +--------+---+---+ | Given | 05/11/20 | 2,000 | | | | | 13 9:18 | Units | | | | | AM PDT | | | | +-------+ +--------+---+---+ | Given | 05/10/20 | 2,000 | | | | | 13 8:16 | Units | | | | | AM PDT | | | | +-------+ +--------+---+---+ +---+---+ | | | +---+---+ + +-------+ +--------+---+---+ | ciprofloxacin (aka CIPRO) | Given | 05/05/20 | 250 mg | | | | tablet 250 mg 250 mg, oral, | | 13 9:30 | | | | | TWICE DAILY, 6 doses, First dose | | PM PDT | | | | | on [facility] 05/03/13 at 1415, Last dose | | | | | | | on 05/05/13 at 2100 | | | | | | + +-------+ +--------+---+---+ +-------+ +--------+---+---+ | Given | 05/05/20 | 250 mg | | | | | 13 9:34 | | | | | | AM PDT | | | | +-------+ +--------+---+---+ | Given | 05/04/20 | 250 mg | | | | | 13 10:28 | | | | | | PM PDT | | | | +-------+ +--------+---+---+ +---+---+ | | | +---+---+ + +-------+ +--------+---+---+ | divalproex DR (allan GARCIA) | Given | 05/04/20 | 500 mg | | | | tablet 500 mg 500 mg, oral, | | 13 9:26 | | | | | DAILY, First dose on Tue05/03/13 | | AM PDT | | | | | at 0900, Until Discontinued | | | | | | + +-------+ +--------+---+---+ +-------+ +--------+---+---+ | Given | 05/03/20 | 500 mg | | | | | 13 9:11 | | | | | | AM PDT | | | | +-------+ +--------+---+---+ +---+---+ | | | +---+---+ + +-------+ +--------+---+---+ | divalproex DR (allan GARCIA) | Given | 05/04/20 | 500 mg | | | | tablet 500 mg 500 mg, oral, | | 13 5:39 | | | | | ONCE, 1 dose, 05/04/13 at 1800 | | PM PDT | | | | + +-------+ +--------+---+---+ +---+---+ | | | +---+---+ + +-------+ +--------+---+---+ | divalproex (allan GARCIA) | Given | 05/12/20 | 500 mg | | | | tablet 500 mg 500 mg, oral, | | 13 8:57 | | | | | THREE TIMES DAILY, First dose on | | AM PDT | | | | | 05/09/13 at 0900, Until | | | | | | | Discontinued | | | | | | + +-------+ +--------+---+---+ +-------+ +--------+---+---+ | Given | 05/11/20 | 500 mg | | | | | 13 9:09 | | | | | | PM PDT | | | | +-------+ +--------+---+---+ | Given | 05/11/20 | 500 mg | | | | | 13 5:00 | | | | | | PM PDT | | | | +-------+ +--------+---+---+ +---+---+ | | | +---+---+ + +-------+ + +---+---+ | divalproex ER (aka DEPAKOTE ER) | Given | 05/08/20 | 1,500 mg | | | | tablet 1,500 mg 1,500 mg, oral, | | 13 10:00 | | | | | DAILY, First dose on Tue05/04/13 | | AM PDT | | | | | at 1915, Until Discontinued | | | | | | + +-------+ + +---+---+ +-------+ + +---+---+ | Given | 05/07/20 | 1,500 mg | | | | | 13 7:56 | | | | | | AM PDT | | | | +-------+ + +---+---+ | Given | 05/06/20 | 1,500 mg | | | | | 13 9:09 | | | | | | AM PDT | | | | +-------+ + +---+---+ +---+---+ | | | +---+---+ + +-------+ +-------+---+---+ | docusate sodium (aka COLACE) | Given | 05/12/20 | 50 mg | | | | capsule 50 mg 50 mg, oral, | | 13 8:58 | | | | | DAILY, First dose on Tue05/03/13 | | AM PDT | | | | | at 0900, Until Discontinued | | | | | | + +-------+ +-------+---+---+ +-------+ +-------+---+---+ | Given | 05/11/20 | 50 mg | | | | | 13 9:19 | | | | | | AM PDT | | | | +-------+ +-------+---+---+ | Given | 05/10/20 | 50 mg | | | | | 13 8:16 | | | | | | AM PDT | | | | +-------+ +-------+---+---+ +---+---+ | | | +---+---+ + +-------+ +---------+---+---+ | ferrous sulfate tablet 325 mg | Given | 05/12/20 | 325 mg | | | | total salt 325 mg total salt, | | 13 8:58 | total | | | | oral, TWICE DAILY, First dose on | | AM PDT | salt | | | | [facility] 05/03/13 at 0900, Until | | | | | | | Discontinued | | | | | | + +-------+ +---------+---+---+ +-------+ +---------+---+---+ | Given | 05/11/20 | 325 mg | | | | | 13 9:09 | total | | | | | PM PDT | salt | | | +-------+ +---------+---+---+ | Given | 05/11/20 | 325 mg | | | | | 13 9:18 | total | | | | | AM PDT | salt | | | +-------+ +---------+---+---+ +---+---+ | | | +---+---+ + +-------+ +------+---+---+ | folic acid (aka FOLVITE) tablet | Given | 05/12/20 | 1 mg | | | | 1 mg 1 mg, oral, DAILY, First | | 13 8:58 | | | | | dose on Tue05/04/13 at 1845, Until | | AM PDT | | | | | Discontinued | | | | | | + +-------+ +------+---+---+ +-------+ +------+---+---+ | Given | 05/11/20 | 1 mg | | | | | 13 9:18 | | | | | | AM PDT | | | | +-------+ +------+---+---+ | Given | 05/10/20 | 1 mg | | | | | 13 8:17 | | | | | | AM PDT | | | | +-------+ +------+---+---+ +---+---+ | | | +---+---+ + +---------+ +-------+---+---+ | furosemide (aka LASIX) | New Bag | 05/03/20 | 20 mg | | | | injection 20 mg 20 mg, | | 13 2:27 | | | | | intravenous, ONCE, 1 dose, [facility] | | PM PDT | | | | | 05/03/13 at 1430 | | | | | | + +---------+ +-------+---+---+ +---+---+ | | | +---+---+ + +---------+ +-------+---+---+ | furosemide (aka LASIX) | New Bag | 05/04/20 | 40 mg | | | | injection 40 mg 40 mg, | | 13 9:40 | | | | | intravenous, ONCE, 1 dose, Fri | | AM PDT | | | | | 05/04/13 at 0845 | | | | | | + +---------+ +-------+---+---+ +---+---+ | | | +---+---+ + +---------+ +-------+---+---+ | furosemide (aka LASIX) | New Bag | 05/05/20 | 40 mg | | | | injection 40 mg 40 mg, | | 13 9:37 | | | | | intravenous, ONCE, 1 dose, Sat | | AM PDT | | | | | 05/05/13 at 0930 | | | | | | + +---------+ +-------+---+---+ +---+---+ | | | +---+---+ + +---------+ +-------+---+---+ | furosemide (aka LASIX) | New Bag | 05/05/20 | 40 mg | | | | injection 40 mg 40 mg, | | 13 5:44 | | | | | intravenous, ONCE, 1 dose, Sat | | PM PDT | | | | | 05/05/13 at 1730 | | | | | | + +---------+ +-------+---+---+ +---+---+ | | | +---+---+ + +---------+ +-------+---+---+ | furosemide (aka LASIX) | New | 05/06/20 | 40 mg | | | | injection 40 mg 40 mg, | | 13 11:06 | | | | | intravenous, ONCE, 1 dose, Sun | | AM PDT | | | | | 05/06/13 at 1015 | | | | | | + +---------+ +-------+---+---+ +---+---+ | | | +---+---+ + +---------+ +-------+---+---+ | furosemide (aka LASIX) | New Bag | 05/12/20 | 40 mg | | | | injection 40 mg 40 mg, | | 13 8:59 | | | | | intravenous, TWICE DAILY | | AM PDT | | | | | (DIURETIC), First dose on Tue | | | | | | | 05/07/13 at 0945, Until | | | | | | | Discontinued | | | | | | + +---------+ +-------+---+---+ +---------+ +-------+---+---+ | New | 05/11/20 | 40 mg | | | | | 13 5:00 | | | | | | PM PDT | | | | +---------+ +-------+---+---+ | New Bag | 05/11/20 | 40 mg | | | | | 13 9:18 | | | | | | AM PDT | | | | +---------+ +-------+---+---+ +---+---+ | | | +---+---+ + +-------+ +--------+---+---+ | gabapentin (aka NEURONTIN) | Given | 05/12/20 | 600 mg | | | | tablet 600 mg 600 mg, oral, | | 13 8:58 | | | | | THREE TIMES DAILY, First dose on | | AM PDT | | | | | [facility] 05/03/13 at 0900, Until | | | | | | | Discontinued | | | | | | + +-------+ +--------+---+---+ +-------+ +--------+---+---+ | Given | 05/11/20 | 600 mg | | | | | 13 9:09 | | | | | | PM PDT | | | | +-------+ +--------+---+---+ | Given | 05/11/20 | 600 mg | | | | | 13 5:00 | | | | | | PM PDT | | | | +-------+ +--------+---+---+ +---+---+ | | | +---+---+ + +-------+ +--------+---+---+ | heparin injection 5,000 Units | Given | 05/12/20 | 5,000 | | | | 5,000 Units, subcutaneous, EVERY | | 13 8:59 | Units | | | | 8 HOURS, First dose on [facility] 7/4/13 | | AM PDT | | | | | at 0000, Until Discontinued | | | | | | + +-------+ +--------+---+---+ +-------+ +--------+---+---+ | Given | 05/12/20 | 5,000 | | | | | 13 1:24 | Units | | | | | AM PDT | | | | +-------+ +--------+---+---+ | Given | 05/11/20 | 5,000 | | | | | 13 5:00 | Units | | | | | PM PDT | | | | +-------+ +--------+---+---+ +---+---+ | | | +---+---+ + +-------+ +---------+---+---+ | levothyroxine tablet 137 mcg | Given | 05/12/20 | 137 mcg | | | | 137 mcg, oral, DAILY, First dose | | 13 8:57 | | | | | on Tue05/03/13 at 0900, Until | | AM PDT | | | | | Discontinued | | | | | | + +-------+ +---------+---+---+ +-------+ +---------+---+---+ | Given | 05/11/20 | 137 mcg | | | | | 13 7:30 | | | | | | AM PDT | | | | +-------+ +---------+---+---+ | Given | 05/10/20 | 137 mcg | | | | | 13 8:16 | | | | | | AM PDT | | | | +-------+ +---------+---+---+ +---+---+ | | | +---+---+ + +-------+ +-------+---+---+ | loratadine (aka CLARITIN) | Given | 05/12/20 | 10 mg | | | | tablet 10 mg 10 mg, oral, DAILY, | | 13 8:58 | | | | | First dose on [facility] 05/03/13 at | | AM PDT | | | | | 0900, Until Discontinued | | | | | | + +-------+ +-------+---+---+ +-------+ +-------+---+---+ | Given | 05/11/20 | 10 mg | | | | | 13 9:18 | | | | | | AM PDT | | | | +-------+ +-------+---+---+ | Given | 05/10/20 | 10 mg | | | | | 13 8:16 | | | | | | AM PDT | | | | +-------+ +-------+---+---+ +---+---+ | | | +---+---+ + + + +---------+---+---+ | nicotine (aka NICOTROL) 21 | Applied | 05/12/20 | 1 patch | | | | mg/24 hr patch 1 Patch 1 patch, | Patch | 13 8:59 | | | | | transdermal, DAILY, First dose on | | AM PDT | | | | | [facility] 05/03/13 at 0900, Until | | | | | | | Discontinued | | | | | | + + + +---------+---+---+ + + +---------+---+---+ | Applied Patch | 05/11/20 | 1 patch | | | | | 13 9:18 | | | | | | AM PDT | | | | + + +---------+---+---+ | Applied Patch | 05/10/20 | 1 patch | | | | | 13 8:15 | | | | | | AM PDT | | | | + + +---------+---+---+ +---+---+ | | | +---+---+ + +-------+ +-------+---+---+ | omeprazole (aka PRILOSEC) | Given | 05/12/20 | 20 mg | | | | capsule 20 mg 20 mg, oral, EVERY | | 13 8:58 | | | | | MORNING, First dose on [facility] | | AM PDT | | | | | 05/03/13 at 0900, Until | | | | | | | Discontinued | | | | | | + +-------+ +-------+---+---+ +-------+ +-------+---+---+ | Given | 05/11/20 | 20 mg | | | | | 13 9:18 | | | | | | AM PDT | | | | +-------+ +-------+---+---+ | Given | 05/10/20 | 20 mg | | | | | 13 8:16 | | | | | | AM PDT | | | | +-------+ +-------+---+---+ +---+---+ | | | +---+---+ + +-------+ +-------+---+---+ | PARoxetine (aka PAXIL) tablet | Given | 05/12/20 | 20 mg | | | | 20 mg 20 mg, oral, DAILY, First | | 13 8:58 | | | | | dose on [facility] 05/03/13 at 0900, Until | | AM PDT | | | | | Discontinued | | | | | | + +-------+ +-------+---+---+ +-------+ +-------+---+---+ | Given | 05/11/20 | 20 mg | | | | | 13 9:18 | | | | | | AM PDT | | | | +-------+ +-------+---+---+ | Given | 05/10/20 | 20 mg | | | | | 13 8:16 | | | | | | AM PDT | | | | +-------+ +-------+---+---+ +---+---+ | | | +---+---+ + +---------+ +--------+---+---+ | perflutren lipid microspheres | New Bag | 05/04/20 | 1.5 mL | | | | (aka DEFINITY) injection 1.5 mL | | 13 4:54 | | | | | 1.5 mL, intravenous, PROCEDURE | | PM PDT | | | | | ONCE, 1 dose, 05/04/13 at 1700 | | | | | | + +---------+ +--------+---+---+ +---+---+ | | | +---+---+ + +-------+ +--------+---+---+ | phenytoin ER (aka DILANTIN) | Given | 05/04/20 | 100 mg | | | | capsule 100 mg 100 mg, oral, | | 13 4:48 | | | | | THREE TIMES DAILY, First dose on | | PM PDT | | | | | [facility] 05/03/13 at 0900, Until | | | | | | | Discontinued | | | | | | + +-------+ +--------+---+---+ +-------+ +--------+---+---+ | Given | 05/04/20 | 100 mg | | | | | 13 9:40 | | | | | | AM PDT | | | | +-------+ +--------+---+---+ | Given | 05/03/20 | 100 mg | | | | | 13 10:10 | | | | | | PM PDT | | | | +-------+ +--------+---+---+ +---+---+ | | | +---+---+ + +-------+ +--------+---+--------+ | pneumococcal (23-valent) | Given | 05/08/20 | 0.5 mL | | Right | | polysaccharide vaccine (aka | | 13 12:00 | | | Arm | | PNEUMOVAX) injection 0.5 mL 0.5 | | PM PDT | | | | | mL, intramuscular, ONE TIME IN | | | | | | | THE MORNING, 1 dose, First dose | | | | | | | on Tue05/08/13 at 1200 | | | | | | + +-------+ +--------+---+--------+ +---+---+ | | | +---+---+ + +-------+ +--------+---+---+ | potassium chloride SR (aka | Given | 05/09/20 | 40 mEq | | | | K-DUR) tablet 40 mEq 40 mEq, | | 13 4:30 | | | | | oral, ONCE, 1 dose, 05/09/13 | | PM PDT | | | | | at 0945 | | | | | | + +-------+ +--------+---+---+ +---+---+ | | | +---+---+ + +-------+ +--------+---+---+ | potassium chloride SR (aka | Given | 05/10/20 | 40 mEq | | | | K-DUR) tablet 40 mEq 40 mEq, | | 13 11:33 | | | | | oral, ONCE, 1 dose, [facility] 05/10/13 | | AM PDT | | | | | at 1130 | | | | | | + +-------+ +--------+---+---+ +---+---+ | | | +---+---+ + +-------+ +--------+---+---+ | potassium chloride SR (aka | Given | 05/10/20 | 40 mEq | | | | K-DUR) tablet 40 mEq 40 mEq, | | 13 12:31 | | | | | oral, ONCE, 1 dose, [facility] 05/10/13 | | PM PDT | | | | | at 1230 | | | | | | + +-------+ +--------+---+---+ +---+---+ | | | +---+---+ + +-------+ +--------+---+---+ | potassium chloride SR (aka | Given | 05/12/20 | 40 mEq | | | | K-DUR) tablet 40 mEq 40 mEq, | | 13 8:57 | | | | | oral, DAILY, First dose on Tue | | AM PDT | | | | | 05/11/13 at 1530, Until | | | | | | | Discontinued | | | | | | + +-------+ +--------+---+---+ +-------+ +--------+---+---+ | Given | 05/11/20 | 40 mEq | | | | | 13 5:00 | | | | | | PM PDT | | | | +-------+ +--------+---+---+ +---+---+ | | | +---+---+ + +-------+ +------+---+---+ | risperiDONE (aka RISPERDAL) | Given | 05/11/20 | 4 mg | | | | tablet 4 mg 4 mg, oral, AT | | 13 9:09 | | | | | BEDTIME, First dose on [facility] 05/03/13 | | PM PDT | | | | | at 2200, Until Discontinued | | | | | | + +-------+ +------+---+---+ +-------+ +------+---+---+ | Given | 05/10/20 | 4 mg | | | | | 13 8:44 | | | | | | PM PDT | | | | +-------+ +------+---+---+ | Given | 05/09/20 | 4 mg | | | | | 13 11:40 | | | | | | PM PDT | | | | +-------+ +------+---+---+ +---+---+ | | | +---+---+ + +-------+ +-------+---+---+ | sildenafil (aka REVATIO) tablet | Given | 05/11/20 | 20 mg | | | | 20 mg 20 mg, oral, ONCE, 1 | | 13 5:00 | | | | | dose, Tue05/11/13 at 1500 | | PM PDT | | | | + +-------+ +-------+---+---+ +---+---+ | | | +---+---+ + +-------+ +-------+---+---+ | simvastatin (aka ZOCOR) tablet | Given | 05/11/20 | 20 mg | | | | 20 mg 20 mg, oral, EVERY | | 13 9:09 | | | | | EVENING, First dose on Tue05/03/13 | | PM PDT | | | | | at 2100, Until Discontinued | | | | | | + +-------+ +-------+---+---+ +-------+ +-------+---+---+ | Given | 05/10/20 | 20 mg | | | | | 13 8:44 | | | | | | PM PDT | | | | +-------+ +-------+---+---+ | Given | 05/09/20 | 20 mg | | | | | 13 8:28 | | | | | | PM PDT | | | | +-------+ +-------+---+---+ +---+---+ | | | +---+---+ + +-------+ +--------+---+---+ | thiamine tablet 100 mg 100 mg, | Given | 05/12/20 | 100 mg | | | | oral, DAILY, First dose on Tue | | 13 8:58 | | | | | 05/04/13 at 1845, Until | | AM PDT | | | | | Discontinued | | | | | | + +-------+ +--------+---+---+ +-------+ +--------+---+---+ | Given | 05/11/20 | 100 mg | | | | | 13 9:18 | | | | | | AM PDT | | | | +-------+ +--------+---+---+ | Given | 05/10/20 | 100 mg | | | | | 13 8:16 | | | | | | AM PDT | | | | +-------+ +--------+---+---+ +---+---+ | | | +---+---+ documented in this encounter
--- OUTSIDE RECORDS SUMMARY | ~2020-03-24 | XMS | Encounter Summary ---
Demographics + + + | Address | [address] | | | [place] [address] | + + + | Home Phone | | + + + | Preferred Language | Unknown | + + + | Marital Status | Single | + + + | Islam Affiliation | 1009 | + + + | Race | Unknown | + + + | Ethnic Group | Unknown | + + + Author + + + | Author | [facility] | | | and [place] | + + + | Organization | [facility] | | | and [place] | + + + | Address | Unknown | + + + | Phone | Unavailable | + + + Support + + + + + | Name | Relationship | Address | Phone | + + + + + | [employer] | [place] | [id number] | | | | | Unknown | | + + + + + Care Team Providers + +------+ + | Care Fire Sprinkler 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 Inspector Name | Role | Phone | + +------+ + | No, Physician | PCP | Unavailable | + +------+ + Reason for Visit +--------+ + | Reason | Comments | +--------+ + | Other | confirming O2 bleed in to BIPAP | +--------+ + Encounter Details +--------+ + + + + | Date | Type | Department | Care Team | Description | +--------+ + + + + | 03/14/ | Telephone | [facility] [place] | [place], | Other (confirming O2 | | 2014 | | PULMONARY [address] | Vera Farrar MD | bleed in to BIPAP) | | | | [place], | | | | | | [place] [address] | | | | | | [phone] | | | +--------+ + + + [...] | | | | | [place] [address] | | | | | | [phone] | | | | | | | | +--------+---------+ + + + | 04/30/ | Office | Sleep Medicine | Jacky Calderon PA | | | 2019 | Visit | | [address] | | | | | | [place] | | | | | | [address] | | | | | | | | +--------+---------+ + + + documented as of this encounter Visit Diagnoses Not on filedocumented in this encounter"
--- OUTSIDE RECORDS SUMMARY | ~2020-03-24 | XMS | Encounter Summary ---
Demographics + + + | Address | [address] | | | [place] [address] | + + + | Home Phone | | + + + | Preferred Language | Unknown | + + + | Marital Status | Single | + + + | Episcopal Affiliation | 1009 | + + + | Race | Unknown | + + + | Ethnic Group | Unknown | + + + Author + + + | Author | [facility] | | | and [place] | + + + | Organization | [facility] | | | and [place] | + + + | Address | Unknown | + + + | Phone | Unavailable | + + + Support + + + + + | Name | Relationship | Address | Phone | + + + + + | [employer] | [place] | [phone] | | | | | Unknown | | + + + + + Care Team Providers + +------+ + | Care Report Developer Name | Role | Phone | + +------+ + | Yuni Shrestha | PCP | | + +------+ + Reason for Visit +--------+ + | Reason | Comments | +--------+ + | Other | overnight oximetry order | +--------+ + Encounter Details +--------+ + + + + | Date | Type | Department | Care Team | Description | +--------+ + + + + | 08/14/ | Telephone | [facility] [place] | [place], | Other (overnight | | 2014 | | PULMONARY [address] | Vera Farrar MD | oximetry order) | | | | [place], | | | | | | [place] [address] | | | | | | [phone] | | | +--------+ + + + [...] | | | | | [place] [address] | | | | | | [phone] | | | | | | | | +--------+---------+ + + + | 04/30/ | Office | Sleep Medicine | Jacky Calderon PA | | | 2019 | Visit | | [address] | | | | | | [place] | | | | | | [address] | | | | | | | | +--------+---------+ + + + + + +--------+ + + | Name | Type | Priori | Associated Diagnoses | Order Schedule | | | | ty | | | + + +--------+ + + | Pulse oximetry, | Respiratory | Routin | Obstructive sleep | 1 Occurrences | | overnight study | Care | e | apnea Hypoxemia | starting 08/14/2015 | | | | | | until 08/13/2016 | + + +--------+ + + documented as of this encounter Visit Diagnoses + + | Diagnosis | + + | Obstructive sleep apnea - Primary Obstructive sleep apnea (adult) (pediatric) | + + | Hypoxemia | + + documented in this encounter"
--- OUTSIDE RECORDS SUMMARY | ~2020-03-24 | XMS | Encounter Summary ---
Demographics + + + | Address | [address] | | | [place] [address] | + + + | Home Phone | | + + + | Preferred Language | Unknown | + + + | Marital Status | Single | + + + | Nondenominational Affiliation | 1009 | + + + | Race | Unknown | + + + | Ethnic Group | Unknown | + + + Author + + + | Author | [facility] | | | and [place]am[place] | + + + | Organization | [facility] | | | and [place]am[place] | + + + | Address | Unknown | + + + | Phone | Unavailable | + + + Support + + + + + | Name | Relationship | Address | Phone | + + + + + | [employer] | ECON | [phone] | | | | | Unknown | | + + + + + Care Team Providers + +------+ + | Care Clerk Television Production Name | Role | Phone | + +------+ + | Gela Trimble NURSE PRACTITIONER PHYSICIAN ASSISTANT | PCP | | + +------+ + [...] | Primary | [place], | [address] | | | | | pulmonary | Vera B, | [place], | | | | | hypertension | MD [address] | [place] | | | | | (HCC) | [address] | [address] | | | | | Procedures | [place], | Phone: | | | | | ECHO | [place] [address] | [phone] | | | | | Complete | | Fax: | | | | | APPT | | [phone] | | | | | 03/18/14. | [...] + + | 12/17/ | Office | [facility] | [place], | Primary pulmonary | | 2013 | Visit | PULMONARY [address] | Vera Farrar MD | hypertension | | | | [place], | | (Primary Dx); [place] | | | | [place] [address] | | (obstructive sleep | | | | [phone] | | apnea); COPD | | | [...] [place] [facility] [place] [facility] [address] [place], [address] HPI Margarita Rowley is a 48 y.o. [...] Years of Education: N/A Occupational History Disabled. Mak[employer] Social History Main Topics Smoking status: Former Smoker -- 1.0 packs/day for 20 years Types: Cigarettes Quit date: 05/14/2013 Smokeless tobacco: None Alcohol Use: Yes Comment: history of abuse Drug Use: Yes Special: Cocaine Comment: history of cocaine use Sexually Active: None Other Topics Concern None Social History Narrative Lives at [facility]. Allergies: Allergies Allergen Reactions Erythromycin Metronidazole Penicillins [...] TABS Take 2,000 Units by mouth Daily. [place] Starch POWD by Does not apply route [...] mg by mouth 2 times da jammie. [place]-3 Fatty Acids (SEA-OMEGA 30) 1200 MG CAPS [...] breath sounds are diminished bilaterally, no wheezes, assembler aircraft power plant ckles or rhonchi Chest Wall: No deformity [...] increased to 98. VPAP Data: Dates: 10/21/13-11/19/13 [employer]: In Home Medical Machine type: Respironics [...] can also review in Care Everywhere). 2. GOLRIA (obstructive sleep apnea) - On BiPAP with poor control. Repeat sleep study done last week, results are pending. She is following with Dr. Ruelas and Jacky in the sleep center due to complex issues with mask fit, issues with adjusting machine with the Cuculus and with her AHI remaining high despite [...] made to ensure accuracy; however, inadvertent computerized plastic card grader cardroom errors may be pre sent. documented in [...] | | | | | | [place] [address] | | | | | | [phone] | | | | | | | | +--------+---------+ + + + | 04/30/ | Office | Sleep Medicine | Jacky Calderon PA | | | 2019 | Visit | | [address] | | | | | | [place] | | | | | | [address] | | | | | | | | +--------+---------+ + + + documented as of this encounter Results ECHO Complete (03/12/2014 8:36 AM PDT) + + | Specimen | + + | | + + + + + | Narrative | Performed At | + + + | [facility] ECHOCARDIOGRAM REPORT | [place] | | STUDY DATE: 03/12/2014 PATIENT NAME: Margarita Rowley : | [facility] | | 1965 PCP: Gela Trimble [facility] | | HISTORY/DIAGNOSIS: PULM HTN A transthoracic [...] | | S. Ananth Salguero MD PhD [facility] 03/12/2014 8:38 | | | Sales And Marketing Assistant: Hung Caro, JUANITOCS, RVT, RDMS | | + + + + + | Procedure Note | + + | Roberto Salguero MD - 03/12/2014 6:[address] [facility] | | CENTERECHOCARDIOGRAM REPORTSTUDY DATE: 03/12/2014PATIENT NAME: Margarita Vora: | | 1965MRN: [id number]: Gela TrimbleCLINICAL HISTORY/DIAGNOSIS: PULM HTNA | | [...] | mmHgLA volume: 34 mLLA index: 18 mL/b6[place] Inflow DT: 290 msIVRT: 117 msValsalva: | | YES, TO NO EFFECTPWDTI S wave: 12.0 cm/sPWDTI E wave: 15.5 cm/sPWDTI A wave: 24.1 | | cm/sE/A Ratio: 0.643E/E Ratio: Signed by: Artie Salguero MD PhD [facility] 03/12/2014 | | 8:38 Sales And Marketing Assistant: Hung Caro, RDCS, RVT, RDMS | |Mitral [...] | |Signed by: Artie Salguero MD PhD [facility] | | 03/12/2014 8:38 | | | | | |Sales And Marketing Assistant: Hung Caro, JUANITOCS, RVT, RDMS | + + + + + + + | Performing | Address | City/State/Zipcode | Phone Number | | Organization | | | | + + + + + | [facility] | [address] | [place], [place] | [phone] | | [facility] | | [address] | | | - IMAGING | | [...]
--- OUTSIDE RECORDS SUMMARY | ~2020-03-24 | XMS | Encounter Summary ---
Demographics + + + | Address | [address] | | | [place] [address] | + + + | Home Phone | | + + + | Preferred Language | Unknown | + + + | Marital Status | Single | + + + | Oriental Orthodox Affiliation | 1009 | + + + | Race | Unknown | + + + | Ethnic Group | Unknown | + + + Author + + + | Author | [facility] | | | and [place] | + + + | Organization | [facility] | | | and [place] | + + + | Address | Unknown | + + + | Phone | Unavailable | + + + Support + + + + + | Name | Relationship | Address | Phone | + + + + + | [employer] | [place] | [phone] | | | | | Unknown | | + + + + + Care Team Providers + +------+ + | Care Steam Engineer Name | Role | Phone | + +------+ + | Gela Trimble NP | PCP | | + +------+ + Reason for Visit +--------+ + | Reason | Comments | +--------+ + | Other | O2 | +--------+ + Encounter Details +--------+ + + + + | Date | Type | Department | Care Team | Description | +--------+ + + + + | 09/23/ | Telephone | [facility] [place] | Tarah Nino, | Other (O2) | | 2012 | | PULMONARY [address] | RN | | | | | [place], | | | | | | [place] [address] | | | | | | [phone] | | | +--------+ + + + [...] | | | | | [place] [address] | | | | | | [phone] | | | | | | | | +--------+---------+ + + + | 04/30/ | Office | Sleep Medicine | Jacky Calderon PA | | | 2019 | Visit | | [address] | | | | | | [place] | | | | | | [address] | | | | | | | | +--------+---------+ + + + documented as of this encounter Visit Diagnoses Not on filedocumented in this encounter"
--- OUTSIDE RECORDS SUMMARY | ~2020-03-24 | XMS | Encounter Summary ---
Demographics + + + | Address | [address] | | | [place] [address] | + + + | Home Phone | | + + + | Preferred Language | Unknown | + + + | Marital Status | Single | + + + | Hindu Affiliation | 1009 | + + + | Race | Unknown | + + + | Ethnic Group | Unknown | + + + Author + + + | Author | [facility] | | | and [place] | + + + | Organization | [facility] | | | and [place] | + + + | Address | Unknown | + + + | Phone | Unavailable | + + + Support + + + + + | Name | Relationship | Address | Phone | + + + + + | [employer] | ECON | [phone] | | | | | Unknown | | + + + + + Care Team Providers + +------+ + | Care Futures Trader Name | Role | Phone | + [...] | | | | | (HCC) | [address] | AVE | | | | | Procedures | [place], | [place], [place] | | | | | ECHO | [place] [address] | [address] | | | | | Complete MD | | Phone: | | | | | ECHO HEART | | [phone] | | | | | [facility] | | Fax: | | | | | MPLETE [address] | | [phone] | | | | | DOPPLER MD | | | | | | | [...] | | | Pulmonology | obstructive | RN UNIT MANAGER [address] | MD | | | | | pulmonary | [address] | | | | | | disease, | [place], | | | | | | unspecified | [place] [address] | | | | | | ([facility]) | Phone: | | | | | | Procedures | [phone] | | | | | | F/U | Fax: | | | | | | | [phone] | | +--------+--------+ + + + + Encounter Details +--------+---------+ + + + | Date | Type | Department | Care Team | Description | +--------+---------+ + + + | 02/02/ | Office | [facility] | [place], | Primary pulmonary | | 2016 | Visit | PULMONARY [address] | Vera Farrar MD | hypertension (HCC) | | | | [place], | | (Primary Dx); | | | | [place] [address] | | Chronic obstructive | | | | [phone] | | pulmonary disease, | | | [...] Years of Education: N/A Occupational History Disabled. [employer] Social History Main Topics Smoking status: Former Smoker -- 1.00 packs/day for 20 years Types: Cigarettes Quit date: 12/15/2015 Smokeless tobacco: Never Used Alcohol Use: No Drug Use: No Sexual Activity: Not on file Other Topics Concern None Social History Narrative Lives at [facility]. Allergies: Allergies Allergen Reactions Erythromycin Other (See [...] TABS Take 2,000 Units by mouth Daily. [place] Starch POWD by Does not apply route [...] mg onto the skin every 24 hours. [place]-3 Fatty Acids (SEA-OMEGA 30) 1200 MG CAPS [...] appointment with Dr. Rivera. ECHO Complete * [facility] ([facility]) Pulmonary Function Testing - AMB Referral 2. [...] made to ensure accuracy; however, inadvertent computerized engraver seals errors may be pre sent. documented in [...] | | | | | [place] [address] | | | | | | [phone] | | | | | | | | +--------+---------+ + + + | 04/30/ | Office | Sleep Medicine | Jacky Calderon PA | | | 2020 | Visit | | [address] | | | | | | [place] | | | | | | [address] | | | | | | | [...]
--- OUTSIDE RECORDS SUMMARY | ~2020-03-24 | XMS | Encounter Summary ---
Demographics + + + | Address | [address] | | | [place] [address] | + + + | Home Phone | | + + + | Preferred Language | Unknown | + + + | Marital Status | Single | + + + | Scientology Affiliation | 1009 | + + + | Race | Unknown | + + + | Ethnic Group | Unknown | + + + Author + + + | Author | [facility] | | | and [place] | + + + | Organization | [facility] | | | and [place] | + + + | Address | Unknown | + + + | Phone | Unavailable | + + + Support + + + + + | Name | Relationship | Address | Phone | + + + + + | [employer] | ECON | [phone] | | | | | Unknown | | + + + + + Care Team Providers + +------+ + | Care Sql Ssrs Ssis Developer Name | Role | Phone | + +------+ + | Gela Trimble NP | PCP | | + +------+ + Reason for Visit +---------+ + | Reason | Comments | +---------+ + | Results | walking oximetry | +---------+ + Encounter Details +--------+ + + + + | Date | Type | Department | Care Team | Description | +--------+ + + + + | 09/16/ | Telephone | [facility] [place] | [place], | Results (walking | | 2013 | | PULMONARY [address] | Vera Farrar MD | oximetry) | | | | [place], | | | | | | [place] [address] | | | | | | [phone] | | | +--------+ + + + [...] | | | | | [place] [address] | | | | | | [phone] | | | | | | | | +--------+---------+ + + + | 04/30/ | Office | Sleep Medicine | Jacky Calderon PA | | | 2019 | Visit | | [address] | | | | | | [place] | | | | | | [id number] | | | | | | | [...] | COPD (chronic obstructive pulmonary disease) (HCC) - Primary Chronic airway | | obstruction, not elsewhere classified | + + documented in this encounter"
--- OUTSIDE RECORDS SUMMARY | ~2020-03-24 | XMS | Encounter Summary ---
Demographics + + + | Address | [address] | | | [place] [address] | + + + | Home Phone | | + + + | Preferred Language | Unknown | + + + | Marital Status | Single | + + + | Christianity Affiliation | NRP | + + + | Race | White | + + + | Ethnic Group | Not or | + + + Author + + + | Author | [facility] | + + + | Organization | [facility] | + + + | Address | Unknown | + + + | Phone | Unavailable | + + + Support + + +---------+ + | Name | Relationship | Address | Phone | + + +---------+ + | Lidia Thibodeaux | ECON | Unknown | | + + +---------+ + Care Team Providers + +------+ + | Care Marketing Community Liaison Name | Role | Phone | + +------+ + | Gela Trimble NP | PCP | | + +------+ + Encounter Details +--------+ + + + + | Date | Type | Department | Care Team | Description | +--------+ + + + + | 05/16/ | Documentati | Pulmonary & | Unknown . | | | 2012 | on | Critical Care | | | | | | Medicine at | | | | | | [facility] | | | | | | [address] | | | | | | [facility] | | | | | | [place], [address] [place] [address] | | | | | | [place], [place] | | | | | | [address] | | | | | | [phone] | | | +--------+ + + + [...]
--- OUTSIDE RECORDS SUMMARY | ~2020-03-24 | XMS | Encounter Summary ---
Demographics + + + | Address | [address] | | | [place] [address] | + + + | Home Phone [...] + | Author | [facility] | | | and [place]am[place] | + + + | Organization | [facility] | | | and [place] | + + + | Address | Unknown | + + + | Phone | Unavailable | + + + Support + + + + + | Name | Relationship | Address | Phone | + + + + + | [employer] | [place] | [phone] | | | | | Unknown | | + + + + + Care Team Providers + +------+ + | Care Aircraft Avionics Technician Name | Role | Phone | [...] Description | +--------+---------+ + + + | 03/12/ | Office | [facility] [place] | [place], | Primary pulmonary | | 2013 | Visit | PULMONARY [address] | Vera Farrar MD | hypertension | | | | [place], | | (Primary Dx); COPD | | | | [place] [address] | | (chronic obstructive | | | | [phone] | | pulmonary disease); | | | | | | GLORIA (obstructive | | | | | | sleep apnea); | | | | | | Tremor; Hypoxemia; | | | | | | Paroxysmal atrial | | | | | | fibrillation (HCC) | +--------+---------+ + + + Social [...] + + + | Blood Pressure | 124/84 | 03/12/2014 8:52 AM | | | | | PDT | | + + + + + | Pulse | 82 | 03/12/2014 8:52 AM | | | | | PDT | | + + + + + | Temperature | - | - | | + + + + + | Respiratory Rate | - | - | | + + + + + | Oxygen Saturation | 93% | 03/12/2014 8:52 AM | On 2L. | | | | PDT | | + + + + + | Inhaled Oxygen | - | - | | | Concentration | | | | + + + + + | Weight | 99.1 kg (218 lb 8 | 03/12/2014 8:52 AM | | | | oz) | PDT | | + + + + + | Height | 149.9 cm (4' 11") | 03/12/2014 8:52 AM | | | | | PDT | | + + + + + | Body Mass Index | 44.13 | 03/12/2014 8:52 AM | | | | | PDT | | + + + + + documented in this encounter Patient Instructions Patient Instructions Vera Lainez MD - 03/12/2014 9:21 AM PDTIf she remains with a saturation less than 89% for greater than 5 minutes on 4L, then increase oxygen to 6L, an d reassess in 30 minutes to try to decrease oxygen back down to 2-4L. If she is requiring 6L or more of oxygen consistently, contact her provider, or take her in for evaluation depending on the clinical circumstances. I would make an appointment to see cardiology, with records from [facility] ER visit, wh [facility] I will also get. We will let you know what the heart ultrasound shows and send a copy to Dr. Rivera as well. documented in this encounter Progress Notes Vera Lainez MD - 03/12/2014 9:14 AM PDTFormatting of this note might be differe nt from the original. Pulmonary Follow Up HPI Margarita Rowley is a 48 y.o. female patient of Gela Trimble here today for follow up of pulmonary hypertension. She was seen in the emergency room due to elevated heart rate. They were checking her oxyge n saturation and her heart rate was noted to be very fast (240?). They took her to the emerg ency room and she was evaluated, and her heart rate came back down on its own. They also curt arently noted that due to her ongoing tremors, the heart rate monitor was picking up her hea rt rate erroneously to a certain degree. She was discharged same day. No medication changes were made. She is going to be seeing a neurologist for the tremors in [facility] next week. Her breathing has been doing okay, and her oxygen has been doing okay. They note that occas ionally she has dropped below 89% even on 4L. On 2L of oxygen during the daytime, her satura tions have typically been running 93-97%. They do need a protocol for dealing with her low s aturations on 4L. She is walking 150 feet 6 times a week. She thinks she could walk farther than this, but deidra boland is afraid to do this. Her order specifies 150 feet, so this as far as she goes. She has ho me exercises, but not physical therapy. At night she is on BiPAP plus 5L bled in, and this is going well. She notes she was tired y day. Her AHI is down to 10.9 on her last download. She is wearing it every night. She i s tolerating it, and she reports she likes it. She feels like it helps her sleep sometimes. She is now on Letairis 10mg daily, increased a couple of months ago. She is still on the Qvar twice daily and the Ventolin as needed, but she has not used it. Past Medical History Past Medical History Diagnosis [...] disorder Hyperlipidemia Obesity Alcohol abuse Cocaine abuse Atrial fibrillation (HCC) Past Surgical History Past Surgical History Procedure Date Mouth surgery 2 teeth removed Cardiac catherization Social History: History Social History Marital Status: Single Spouse Name: N/A Number of Children: N/A Years of Education: N/A Occupational History Disabled. [employer] Social History Main Topics Smoking status: Former Smoker -- 1.0 packs/day for 20 years Types: Cigarettes Quit date: 05/14/2013 Smokeless tobacco: None Alcohol Use: Yes Comment: history of abuse Drug Use: Yes Special: Cocaine Comment: history of cocaine use Sexually Active: None Other Topics Concern None Social History Narrative Lives at [facility]. Allergies: Allergies Allergen Reactions Erythromycin Metronidazole Penicillins Sulfa Antibiotics Medications: Outpatient Encounter Prescriptions as of 03/12/2014 Medication Sig Dispense Refill acetaminophen (MAPAP) 325 mg tablet Take 650 mg by mouth every 4 hours as needed. albuterol (VENTOLIN HFA) 90 mcg/puff inhaler Inhale 2 puffs into the lungs every 6 hour s as needed. ambrisentan (LETAIRIS) 5 MG tablet Take 10 [...] TABS Take 2,000 Units by mouth Daily. [place] Starch POWD by Does not apply route [...] tablet Take 15 mg by mouth Daily. [place]-3 Fatty Acids (SEA-OMEGA 30) 1200 MG CAPS [...] Review of Systems Constitutional: Denies fever, chills, and sweats. Down 12 pounds since August. Up 5 poun ds since December. Eyes: Denies vision change and eye irritation. ENT: Denies earache, decreased hearing, nasal congestion, nosebleeds, sore throat, and ho arseness. Resp: See HPI. CV: Denies chest pain, palpitations, and syncope. Neuro: Continued tremors. Skin: Some facial swelling and some flushing. Objective BP 124/84 | Pulse 82 | Ht 1.499 m (4' 11") | Wt 99.111 kg (218 lb 8 oz) | BMI 44.11 kg/m2 | SpO2 93% 2L pulse General Appearance: Alert, cooperative, no distress, appears stated age, tremor of hands, jaw Head: Normocephalic, without obvious abnormality, atraumatic Eyes: [...] non-tender, non-distended, obese Extremities: No cyanosis, clubbing, bilateral lower extremity edema, wearing HUMZA hose Pulses: Radial pulses 2+ and symmetric Skin: Warm and dry, facial flushing Lymph nodes: Cervical and supraclavicular nodes normal Data: Immunization History Administered Date(s) Administered INFLUENZA, PRESERVATIVE FREE IM 07/31/2013 Assessment 1. Primary pulmonary hypertension - On Letairis at 10mg currently. Had repeat echocardiogra m done today, and results are pending. We will follow up results and call her caregivers 2. COPD (chronic obstructive pulmonary disease) - On Qvar and albuterol. She is not using t he albuterol. 3. GLORIA (obstructive sleep apnea) - On BiPAP and finally improved. She reports good complian ce with machine, fairly good tolerance and her caregivers have noted improvement in her slee piness. 4. Tremor - She will be seeing Dr. Fajardo, but it is speculated that this is a Parkinsonian ty pe tremor, possibly related to prior antipsychotic use. Unclear why it did worsen, concern f or medication interaction. 5. Hypoxemia- On oxygen at 2L typically and up to 4L. We spent some time discussing her oxy gen orders. They feel that just having a titrate order is not sufficient for their needs. I wrote for specific parameters to adjust her oxygen from 2L to 4L previously. On 2L occasiona lly her oxygen level does run slightly high, but I am concerned about adjusting this down, a s I am concerned she may drop too low. There was a certain degree of discussion as I noted t hat I cannot give parameters for every potential situation, and they will to a certain exten t need to use their judgement in situations. Apparently they have no protocol in place for m anaging this medically, but are working to develop one. I did write additional parameters to increase to 6L if her oxygen remains below 89% on 4L, and then reassess in 30 minutes. If t hey can, they should decrease back to 2-4L as indicated. If she requires 6L still, then they either need to contact the provider or seek care depending on circumstances. Obviously if lucina bey is an emergency, and they cannot get her saturation up, they need to seek care more emerge ntly, and not wait this time. I pointed out though, that all of these contingencies cannot b e written for easily, and some of this will have to be based on the person assessing her and caring for her having some clinical expertise and common sense. 6. Paroxysmal atrial fibrillation- Per caregiver seen at [facility] ER visit. We will ge t records for review and I suggested cardiology follow up. Plan 1.I rewrote some of her oxygen parameters. I think part of the point here is that if her ox ygen level is low, we need to be notified, or she needs to be taken in to be seen as this re presents a clinical change. But part of how to handle that will depend on clinical judgement . I am comfortable with her adjusting between 2-4L during the daytime, and temporarily up to 6L if she briefly drops immediately after activity. 2.Follow up echocardiogram results, done today. 3.Continue BiPAP with oxygen bleed in at night. 4. Continue Letairis. 5. We will get records from [facility] ER visit, but I did suggest cardiology follow up for the new onset paroxysmal atrial fibrillation. She was advised to call if new pulmonary symptoms were to develop. Return to clinic in 3 months, or sooner with concerns. CC: Gela Trimble NP, Lashae Rivera MD, Avila Doll MD Portions of this report were transcribed using voice recognition software. Every effort wa s made to ensure accuracy; however, inadvertent computerized operations specialists errors may be pre sent. Electronically signed by: Vera Lainez MD 03/12/2014 9:14 documented in t his encounter Plan of [...] | | | | | [place] [address] | | | | | | [phone] | | | | | | | | +--------+---------+ + + + | 04/30/ | Office | Sleep Medicine | Jacky Calderon PA | | | 2019 | Visit | | [address] | | | | | | [place] | | | | | | [id number] | | | | | | | | +--------+---------+ + + + documented as of this encounter Visit Diagnoses + + | Diagnosis | + + | Primary pulmonary hypertension - Primary | + + | COPD (chronic obstructive pulmonary disease) Chronic airway obstruction, not | | elsewhere classified | + + | GLORIA (obstructive sleep apnea) Obstructive sleep apnea (adult) (pediatric) | + + | Tremor Abnormal involuntary movements | + + | Hypoxemia | + + | Paroxysmal atrial fibrillation (HCC) Atrial fibrillation | + + documented in this encounter
--- OUTSIDE RECORDS SUMMARY | ~2020-03-24 | XMS | Encounter Summary ---
Demographics + + + | Address | [address] | | | [place] [address] | + + + | Home Phone [...] | Organization | [facility] | | | and [place] | + + + | Address | Unknown | + + + | Phone | Unavailable | + + + Support + + + + + | Name | Relationship | Address | Phone | + + + + + | Projects Horizon | ECON | [id number] | | | | | Unknown | | + + + + + Care Team Providers + +------+ + | Care Orthotic/Prosthetic Practitioner Name | Role | Phone | + [...] Description | +--------+--------+ + + + | 12/22/ | Refill | [facility] [place] | [place], | Medication Refill | | 2015 | | PULMONARY [address] | Vera Farrar MD | | | | | [place], | | | | | | [place] [address] | | | | | | [phone] | | | +--------+--------+ + + + Social History + + + +--------+------+ | Tobacco Use | Types | Packs/Day | Years | Date | | | | | Used | | + + + +--------+------+ | Current Every Day | Cigarettes | 1 | 20 | | | Smoker | | | | | + + + +--------+------+ + +---+---+---+ | Smokeless Tobacco: | | [...] | | | | | [place] [address] | | | | | | [phone] | | | | | | | | +--------+---------+ + + + | 04/30/ | Office | Sleep Medicine | Jacky Calderon PA | | | 2020 | Visit | | [address] | | | | | | [place] | | | | | | [id number] | | | | | | | | +--------+---------+ + + + documented as of this encounter Visit Diagnoses Not on filedocumented in this encounter"
--- OUTSIDE RECORDS SUMMARY | ~2020-03-24 | XMS | Encounter Summary ---
Demographics + + + | Address | [address] | | | [place] [address] | + + + | Home Phone | | + + + | Preferred Language | Unknown | + + + | Marital Status | Single | + + + | Voodoo Affiliation | 1009 | + + + | Race | Unknown | + + + | Ethnic Group | Unknown | + + + Author + + + | Author | [facility] | | | and [place] | + + + | Organization | [facility] | | | and [place] | + + + | Address | Unknown | + + + | Phone | Unavailable | + + + Support + + + + + | Name | Relationship | Address | Phone | + + + + + | [employer] | ECON | [id number] | | | | | Unknown | | + + + + + Care Team Providers + +------+ + | Care Net Web Developer Name | Role | Phone | + +------+ + | Pcp, Prov Inactive | PCP | | + +------+ + Reason for Visit + + + | Reason | Comments | + + + | Medication | | | Management | | + + + Encounter Details +--------+--------+ + + + | Date | Type | Department | Care Team | Description | +--------+--------+ + + + | 06/01/ | Refill | [facility] [place] | [place], | Medication | | 2018 | | GASTROENTEROLOGY | BRITTANY Maddox [address] | Management | | | | [address] [place] | [place], [place] [address] | | | | | [address] [place], [place] | [place], [place] | | | | | [address] | [address] | | | | | [phone] | | | +--------+--------+ + + + [...] | | | | | [place] [address] | | | | | | [phone] | | | | | | | | +--------+---------+ + + + | 04/30/ | Office | Sleep Medicine | aJcky Calderon PA | | | 2020 | Visit | | [address] | | | | | | [place] | | | | | | [address] | | | | | | | | +--------+---------+ + + + documented as of this encounter Visit Diagnoses Not on filedocumented in this encounter"
--- OUTSIDE RECORDS SUMMARY | ~2020-03-24 | XMS | Encounter Summary ---
Demographics + + + | Address | [address] | | | [place] [address] | + + + | Home Phone | | + + + | Preferred Language | Unknown | + + + | Marital Status | Single | + + + | Taoist Affiliation | 1009 | + + + | Race | Unknown | + + + | Ethnic Group | Unknown | + + + Author + + + | Author | [facility] | | | and [place] | + + + | Organization | [facility] | | | and [place] | + + + | Address | Unknown | + + + | Phone | Unavailable | + + + Support + + + + + | Name | Relationship | Address | Phone | + + + + + | Projects [employer] | ECON | [id number] | | | | | Unknown | | + + + + + Care Team Providers + +------+ + | Care Child Development Associate Teacher Name | Role | Phone | + [...] | 2017 | | GASTROENTEROLOGY | Varsha [facility] [employer] [address] | | | | | [address] [place] | [place], [place] [address] | | | | | [address] [place], [place] | [place], [place] | | | | | [address] | [address] | | | | | [phone] | | | +--------+--------+ + + + [...] | | | | | [place] [address] | | | | | | [phone] | | | | | | | [...]
--- OUTSIDE RECORDS SUMMARY | ~2020-03-24 | XMS | Encounter Summary ---
Demographics + + + | Address | [address] | | | [place] [address] | + + + | Home Phone [...] | Organization | [facility] | | | and [place] | + + + | Address | Unknown | + + + | Phone | Unavailable | + + + Support + + + + + | Name | Relationship | Address | Phone | + + + + + | [employer] | ECON | [id number] | | | | | Unknown | | + + + + + Care Team Providers + +------+ + | Care Child Care Team Lead Name | Role | Phone | + [...] | | | CENTER [address] | [facility] | | | | | [address] [place] | [place] [address] | | | | | [address] | [phone] | | | | | [phone] | | | +--------+ + + + [...] | | | | | [place] [address] | | | | | | [phone] | | | | | | | | +--------+---------+ + + + | 04/30/ | Office | Sleep Medicine | Jacky Calderon PA | | | 2020 | Visit | | [address] | | | | | | [place] | | | | | | [phone] | | | | | | | | +--------+---------+ + + + documented as of this encounter Visit Diagnoses Not on filedocumented in this encounter"
--- OUTSIDE RECORDS SUMMARY | ~2020-03-24 | XMS | Encounter Summary ---
Demographics + + + | Address | [address] | | | [place] [address] | + + + | Home Phone | | + + + | Preferred Language | Unknown | + + + | Marital Status | Single | + + + | Samaritan Affiliation | 1009 | + + + | Race | Unknown | + + + | Ethnic Group | Unknown | + + + Author + + + | Author | [facility] | | | and [place] | + + + | Organization | [facility] | | | and [place] | + + + | Address | Unknown | + + + | Phone | Unavailable | + + + Support + + + + + | Name | Relationship | Address | Phone | + + + + + | [employer] | ECON | [id number] | | | | | Unknown | | + + + + + Care Team Providers + +------+ + | Care Roustabout Name | Role | Phone | + [...] Description | +--------+---------+ + + + | 06/14/ | Office | [facility] | Jacky Calderon PA | Primary central | | 2018 | Visit | SLEEP DISORDER [address] | [address] | sleep apnea (Primary | | | | [address] [place] | [place] | Dx) | | | | [place] [address] | [address] | | | | | [phone] | | | +--------+---------+ + + + [...] + + + | Blood Pressure | 124/68 | 06/14/2018 2:57 PM | | | | | PDT | | + + + + + | Pulse | 56 | 06/14/2018 2:57 PM | | | | | PDT | | + + + + + | Temperature | - | - | | + + + + + | Respiratory Rate | 16 | 06/14/2018 2:57 PM | | | | | PDT | | + + + + + | Oxygen Saturation | 95% | 06/14/2018 2:57 PM | 1 liter/min | | | | PDT | | + + + + + | Inhaled Oxygen | - | - | | | Concentration | | | | + + + + + | Weight | 80.8 kg (178 lb 3.9 | 06/14/2018 2:57 PM | | | | oz) | PDT | | + + + + + | Height | - | - | | + + + + + | Body Mass Index | 36 | 02/21/2018 10:41 AM | | | | | PDT | | + + + + + documented in this encounter Patient Instructions Patient Instructions Jacky Calderon PA - 06/14/2018 3:00 PM PDT1. Go to [facility] to get: -Respironics AmaraView full face mask -30 day guarantee 2. Avoid sleeping during the day. -if you feel tired, get active. -if you need to take a nap, use your BiPAP. -if you nap, sleep for 10-20 minutes. 3. Keep a consistent bed time/wake time -10pm to 6am -keep this schedule 7 days/week 3:3 4 PM PDT documented in this encounter Progress Notes Jacky Calderon PA - 06/14/2018 3:00 PM PDT Subjective: Patient ID: Margarita Rowley is a 52 y.o. female. HPI last office visit: 07/26/2017 date of polysomnography: 03/13/2013 at [facility] AHI: 64.2 O2%: n/a Machine type: Respironics BiPAP Auto Mask type: ResMed Quattro FX full face mask DME: [facility] in [place] pressure: 16/5 cm with backup rate of 8 bpm and O2 at 5 L/min Nights using BiPAP: 179/180 365/366 % of nights >4 hours: 90.0% 49.5% average usage (all nights): 7:15 4:10 average usage (nights used): 7:17 4:10 AHI: 8.6 Jessie comes in for BiPAP compliance. She is wearing her BiPAP nightly, but has had problems with her mask fitting properly. She was using a full face mask, but it started bothering t he bridge of her nose. This may have been from not replacing it often enough. She changed her mask to nasal pillows, but has had problems with it bothering her nares. She is using a lower quality mask that many people have problems with. We discussed having her change her mask to a Respironics AmaraView full face mask. She may consider using [facility], if [facility] in [place] does not get her the correct mask. She thinks this will work well for h er. We discussed when she is able to replace her equipment. We also discussed the recommen ded cleaning schedule for her equipment. She is due for a new BiPAP, but she feels it is wo rking fine. She is also sleeping off and on during the day. This is happening mostly on weekends becau se she does not work/volunteer. She goes to bed later and wakes later. She spends most of her weekend watching television and sleeping. We discussed having her keep a consistent sle ep schedule (7 days/week) and being more active during the day. If she needs to nap, she is to use her BiPAP and sleep in her bed, preferably for 10-20 minutes. I have discussed the download in detail. This shows that her sleep apnea is controlled, wi th an AHI of 8.6. It also shows that her leaks are controlled. BP 124/68 | Pulse 56 | Resp 16 | Wt 80.8 kg (178 lb 3.9 oz) | SpO2 95% Comment: 1 liter /min | BMI 36.00 kg/m Review of Systems Objective: Physical Exam Assessment: Problem #1: PRIMARY CENTRAL SLEEP APNEA ([id number]) This is controlled with BiPAP and oxygen at 5 L/min. Her compliance is going very well. Plan: 1. She is to continue with BiPAP indefinitely. 2. She is to replace her nasal pillows with a Respironics AmaraView full face mask. 3. She is to be more active during the day and avoid napping. If she needs to nap, she is to sleep in her bed for 10-20 minutes while using her BiPAP 4. She is to keep a consistent sleep schedule of 10pm-6am. 5. She is to touch base with her medical supplier twice per year to ensure that her equipm ent is satisfactory. I will follow up with her in 1 year, sooner prn. Twenty-five minutes were spent face-to-fa ce, with the majority of time spent in counseling. Jacky Calderon PA-C documented in this enco unter Plan of Treatment +--------+---------+ + + + | Date | Type | Specialty | Care Team | Description | +--------+---------+ + + + | 04/16/ | Office | Pulmonology | Helen Astudillo | | | 2019 | Visit | | MD Vikash [address] | | | | | | [address] [place] | | | | | | [place] [address] | | | | | | [phone] | | | | | | | | +--------+---------+ + + + | 04/30/ | Office | Sleep Medicine | Jacky Calderon PA | | | 2019 | Visit | | [address] | | | | | | [place] | | | | | | [address] | | | | | | | | +--------+---------+ + + + documented as of this encounter Visit Diagnoses + + | Diagnosis | + + | Primary central sleep apnea - Primary | + + documented in this encounter"
--- OUTSIDE RECORDS SUMMARY | ~2020-03-24 | XMS | Encounter Summary ---
Demographics + + + | Address | [address] | | | [place] [address] | + + + | Home Phone | | + + + | Preferred Language | Unknown | + + + | Marital Status | Single | + + + | Baptism Affiliation | 1009 | + + + | Race | Unknown | + + + | Ethnic Group | Unknown | + + + Author + + + | Author | [facility] | | | and [place] | + + + | Organization | [facility] | | | and [place] | + + + | Address | Unknown | + + + | Phone | Unavailable | + + + Support + + + + + | Name | Relationship | Address | Phone | + + + + + | [employer] [facility] | [place] | [id number] | | | | | Unknown | | + + + + + Care Team Providers + +------+ + | Care Manual Training Teacher Name | Role | Phone | + +------+ + | Gela Trimble NP | PCP | | + +------+ + Encounter Details +--------+ + + + + | Date | Type | Department | Care Team | Description | +--------+ + + + + | 07/04/ | Hospital | [facility] | Offenstein, | Pulmonary | | 2012 | Encounter | MED [facility] GENER[facility] OP | Vera Farrar MD | hypertension (HCC) | | | | CONV DEPT [address] | | | | | [address] [place], | | | | | | [place] [address] | | | | | | [phone] | | | +--------+ + + + [...] at Time of Discharge + + + +---------+--------+ + | Medication | Sig | Dispensed | Refills | Start | End Date | | | | | | Date | | + + + +---------+--------+ + | acetaminophen | Take 650 mg by mouth | | 0 | | | | (MAPAP) 325 mg | every 4 hours as | | | | | | tablet | needed. | | | | | + + + +---------+--------+ + | albuterol | Inhale 2 puffs into | | 0 | | | | (VENTOLIN HFA) 90 | the lungs every 4 | | | | | | mcg/puff inhaler | hours as needed for | | | | | | | Wheezing or | | | | | | | Shortness of Breath. | | | | | + + + +---------+--------+ + | ascorbic acid | Take 500 mg by mouth | | 0 | | | | (VITAMIN C) 500 mg | 2 times daily. | | | | | | tablet | | | | | | + + + +---------+--------+ + | cetirizine | Take 10 mg by mouth | | 0 | | | | (ZYRTEC) 10 mg | Daily. | | | | | | tablet | | | | | | + + + +---------+--------+ + | cholecalciferol | Take 2,000 Units by | | 0 | | | | (VITAMIN D-3) 2000 | mouth Daily. | | | | | | UNITS TABS | | | | | | + + + +---------+--------+ + | divalproex | Take 500 mg by mouth | | 0 | | | | (DEPAKOTE) 500 mg EC | 2 times daily. | | | | | | tablet | | | | | | + + + +---------+--------+ + | furosemide (LASIX) | Take 80 mg by mouth | | 0 | | | | 80 mg tablet | Daily. | | | | | + + + +---------+--------+ + | gabapentin | Take 600 mg by mouth | | 0 | | | | (NEURONTIN) 300 mg | 3 times daily. | | | | | | capsule | | | | | | + + + +---------+--------+ + | meloxicam (MOBIC) | Take 15 mg by mouth | | 0 | | | | 15 mg tablet | Daily. | | | | | + + + +---------+--------+ + | potassium chloride | Take 40 mEq by mouth | | 0 | | | | (K-DUR) 20 mEq | Daily. | | | | | | tablet | | | | | | + + + +---------+--------+ + | simvastatin | Take 20 mg by mouth | | 0 | | | | (ZOCOR) 20 mg tablet | nightly. | | | | | + + + +---------+--------+ + | | Inhale 2 puffs into | | 0 | | | | albuterol-ipratropiu | the lungs every 6 | | | | 3 | | m (COMBIVENT) 103-18 | hours as needed. | | | | | | mcg/puff inhaler | | | | | | + + + +---------+--------+ + | buPROPion | Take 100 mg by mouth | | 0 | | | | (WELLBUTRIN) 100 mg | 2 times daily. | | | | 6 | | tablet | | | | | | + + + +---------+--------+ + | | Take by mouth. | | 0 | | | | Dextromethorphan-Gua | | | | | 3 | | ifenesin (ROBITUSSIN | | | | | | | COUGH/CHEST DM MAX) | | | | | | | 10-200 MG/5ML LIQD | | | | | | + + + +---------+--------+ + | | Take 1 tablet by | | 0 | | | | diphenhydrAMINE-acet | mouth nightly as | | | | 3 | | aminophen (TYLENOL | needed. | | | | | | PM EXTRA STRENGTH) | | | | | | | 25-500 MG TABS | | | | | | + + + +---------+--------+ + | docusate sodium | Take 50 mg by mouth | | 0 | | | | (COLACE) 50 MG | Daily. | | | | 8 | | capsule | | | | | | + + + +---------+--------+ + | estradiol | Take 2 mg by mouth | | 0 | | | | (ESTRACE) 1 mg | Daily. | | | | 3 | | tablet | | | | | | + + + +---------+--------+ + | ferrous sulfate | Take 325 mg by mouth | | 0 | | | | 325 mg tablet | daily (with | | | | 3 | | | breakfast). | | | | | + + + +---------+--------+ + | | Take 1 tablet by | | 0 | | | | HYDROcodone-acetamin | mouth every 6 hours | | | | 4 | | ophen (NORCO) 5-325 | as needed. | | | | | | mg per tablet | | | | | | + + + +---------+--------+ + | levothyroxine | Take 175 mcg by | | 0 | | | | (SYNTHROID, | mouth every morning | | | | 6 | | LEVOTHROID) 137 MCG | (before breakfast). | | | | | | tablet | | | | | | + + + +---------+--------+ + | miconazole | Place 1 applicator | | 0 | | | | (MICONAZOLE 7) 2% | vaginally 2 times | | | | 3 | | vaginal cream | daily. | | | | | + + + +---------+--------+ + | [place]-3 Fatty | Take by mouth. | | 0 | | | | Acids (SEA-OMEGA 30) | | | | | 7 | | 1200 MG CAPS | | | | | | + + + +---------+--------+ + | omeprazole | Take 20 mg by mouth | | 0 | | | | (PRILOSEC) 20 mg | every morning | | | | 6 | | capsule | (before breakfast). | | | | | + + + +---------+--------+ + | ondansetron | Take 4 mg by mouth | | 0 | | | | (ZOFRAN ODT) 4 mg | every 8 hours as | | | | 7 | | disintegrating | needed. | | | | | | tablet | | | | | | + + + +---------+--------+ + | PARoxetine (PAXIL) | Take 20 mg by mouth | | 0 | | | | 20 mg tablet | nightly. | | | | 8 | + + + +---------+--------+ + | phenytoin | Take by mouth 3 | | 0 | | | | (DILANTIN) 100 mg ER | times daily. | | | | 3 | | capsule | | | | | | + + + +---------+--------+ + | risperiDONE | Take 4 mg by mouth | | 0 | | | | (RISPERDAL) 4 MG | Daily. | | | | 4 | | tablet | | | | | | + + + +---------+--------+ + | selenium sulfide | Apply topically | | 0 | | | | (SELSUN) 1 % LOTN | Daily. | | | | 3 | + + + +---------+--------+ + | traMADol (ULTRAM) | Take 50 mg by mouth | | 0 | | | | 50 mg tablet | every 6 hours as | | | | 3 | | | needed. | | | | | + + + +---------+--------+ + documented as of this encounter Plan [...] | | | | | [place] [address] | | | | | | [phone] | | | | | | | | +--------+---------+ + + + | 04/30/ | Office | Sleep Medicine | Jacky Calderon PA | | | 2020 | Visit | | [address] | | | | | | [place] | | | | | | [address] | | | | | | | | +--------+---------+ + + + + +------+--------+ + + | Name | Type | Priori | Associated Diagnoses | Date/Time | | | | ty | | | + +------+--------+ + + | DNA Double-Stranded | Lab | Routin | Pulmonary | 07/04/2013 4:21 PM | | Ab, IgG | | e | hypertension (HCC) | PDT | + +------+--------+ + + | 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 | | e | hypertension (HCC) | PDT | + +------+--------+ + + | Ela 1 Ab, IgG | Lab | Routin | Pulmonary | 07/04/2013 4:21 PM | | | | e | hypertension (HCC) | PDT | + +------+--------+ + + | SS-A RO Ab,IgG, | Lab | Routin | Pulmonary | 07/04/2013 4:21 PM | | Serum | | e | hypertension (HCC) | PDT | + +------+--------+ + + | SS-B LA Ab, IgG, | Lab | Routin | Pulmonary | 07/04/2013 4:21 PM | | Serum | | e | hypertension (HCC) | PDT | + +------+--------+ + + + +------+--------+ + + | Name | Type | Priori | Associated Diagnoses | Order Schedule | | | | ty | | | + +------+--------+ + + | Aldolase | Lab | Routin | Pulmonary | 1 Occurrences | | | | e | hypertension (HCC) | starting 07/04/2013 | + +------+--------+ + + | Cyclic Citrullinated | Lab | Routin | Pulmonary | 1 Occurrences | | Peptide Ab, IgG | | e | hypertension (HCC) | starting 07/04/2013 | + +------+--------+ + + | LOOM SETTER Ab, IgG | Lab | Routin | Pulmonary | 1 Occurrences | | | | e | hypertension (HCC) | starting 07/04/2013 | + +------+--------+ + + | Amrik Ab, IgG | Lab | Routin | Pulmonary | 1 Occurrences | | | | e | hypertension (HCC) | starting 07/04/2013 | + +------+--------+ + + documented as of this encounter Procedures + +--------+ + + + | Procedure Name | Priori | Date/Time | Associated Diagnosis | Comments | | | ty | | | | + +--------+ + + + | EXTRACTABLE NUCLEAR | Routin | 07/04/2013 | | Results for this | | AUTOANTIBODIES | e | 4:21 PM | | procedure are in the | | | | PDT | | results section. | + +--------+ + + + | CYCLIC CITRULLINATED | Routin | 07/04/2013 | | Results for this | | PEPTIDE AB, IGG | e | 4:21 PM | | procedure are in the | | | | PDT | | results section. | + +--------+ + + + | ELA 1 AB, IGG | Routin | 07/04/2013 | | Results for this | | | e | 4:21 PM | | procedure are in the | | | | PDT | | results section. | + +--------+ + + + | DNA DOUBLE-STRANDED | Routin | 07/04/2013 | | Results for this | | AB, IGG | e | 4:21 PM | | procedure are in the | | | | PDT | | results section. | + +--------+ + + + | ALDOLASE | Routin | 07/04/2013 | | Results for this | | | e | 4:21 PM | | procedure are in the | | | | PDT | | results section. | + +--------+ + + + | SS-B LA AB, IGG, | Routin | 07/04/2013 | | Results for this | | SERUM | e | 4:21 PM | | procedure are in the | | | | PDT | | results section. | + +--------+ + + + | SS-A RO AB, IGG, | Routin | 07/04/2013 | | Results for this | | SERUM | e | 4:21 PM | | procedure are in the | | | | PDT | | results section. | + +--------+ + + + | RHEUMATOID FACTOR, | Routin | 07/04/2013 | | Results for this | | QUANT | e | 4:21 PM | | procedure are in the | | | | PDT | | results section. | + +--------+ + + + | RHEUMATOID FACTOR, | Routin | 07/04/2013 | Pulmonary | Results for this | | QUANT | e | 4:21 PM | hypertension (HCC) | procedure are in the | | | | PDT | | results section. | + +--------+ + + + | CK TOTAL | Routin | 07/04/2013 | | Results for this | | | e | 4:21 PM | | procedure are in the | | | | PDT | | results section. | + +--------+ + + + | CK TOTAL | Routin | 07/04/2013 | Pulmonary | Results for this | | | e | 4:21 PM | hypertension (HCC) | procedure are in the | | | | PDT | | results section. | + +--------+ + + + documented in this encounter Results Cyclic Citrullinated Peptide Ab, IgG (07/04/2013 4:21 PM PDT) + + + + + + | Component | Value | Ref Range | Performed | Pathologist | | | | | At | Signature | + + + + + + | Cyclic | <16Comment: Negative | <20 EU | [facility] | | | Citrullin | < [address] | | [facility] | | | Peptide Ab | Weak Positive | | MEDICAL | | | | 20 to 39 Moderate | | CENTER - | | | | Positive 40 to 59 | | LABORATORY | | | | Strong Positive | | | | | | 60 or greater | | | | | | Approximately 70% of | | | | | | patients with RA are | | | | | | positive for CCP IgG, | | | | | | while only 2% of random | | | | | | blood donors and disease | | | | | | controls are | | | | | | positive. The diagnostic | | | | | | value of antibodies to | | | | | | CCP in juvenile | | | | | | rheumatoid arthritis | | | | | | patients has not been | | | | | | determined. Note: | | | | | | Updated methodology | | | | | | measures IgG antibody | | | | | | to the CCP3 peptide. | | | | | | Results from this assay | | | | | | in the strong positive | | | | | | range (> 60 U) may be | | | | | | higher than with the | | | | | | previous assay, which | | | | | | measured IgG antibody to | | | | | | CCP2 peptide. New | | | | | | method shows improved | | | | | | sensitivity in RA | | | | | | patients. Testing | | | | | | Performed: [facility], [address] | | | | | [place] [address] [place] | | | | | | [address] [place]: | | | | | | [id number] | | | | + + + + + + + + | Specimen | + + | | + + + + + + + | Performing | Address | City/[facility] | Phone Number | | Organization | | | | + + + + + | [facility] | [address] | [place] | [phone] | | [facility] | | [address] | | | - LABORATORY | | | | + + + + + | [facility] | [address] | [place] | | | [facility] | | [address], [facility] | | | - LABORATORY | | | | + + + + + Ela 1 Ab, IgG (07/04/2013 4:21 PM PDT) + + + + + + | Component | Value | Ref Range | Performed | Pathologist | | | | | At | Signature | + + + + + + | ELA-1 | <0.2Comment: Negative | <1.0 AI | [facility] | | | autoantibod | Testing Performed: | | [facility] | | | y IgG | [facility], [address], | | MEDICAL | | | | [place] [address] | | CENTER - | | | | CLIA: [id number] | | LABORATORY | | + + + + + + + + | Specimen | + + | | + + + + + + + | Performing | Address | City/State/Zipcode | Phone Number | | Organization | | | | + + + + + | [facility] | [address] | [place] | [phone] | | [facility] | | [address] | | | - LABORATORY | | | | + + + + + | [facility] | [address] | [place] | | | [facility] | | [address] [place] [address] | | | - LABORATORY | | | | + + + + + SS-B LA Ab, IgG, Serum (07/04/2013 4:21 PM PDT) + + + + + + | Component | Value | Ref Range | Performed | Pathologist | | | | | At | Signature | + + + + + + | SS-B | <0.2Comment: Negative | <1.0 AI | [facility] | | | Autoantibod | Testing Performed: | | [facility] | | | y | [facility], [address], | | MEDICAL | | | | [place] [address] | | CENTER - | | | | CLIA: [id number] | | LABORATORY | | + + + + + + + + | Specimen | + + | | + + + + + + + | Performing | Address | City/State/Zipcode | Phone Number | | Organization | | | | + + + + + | [facility] | [address] | [place] | [phone] | | [facility] | | [address] | | | - LABORATORY | | | | + + + + + | [facility] | [address] | [place], [place] | | | [facility] | | [id number] | | | - LABORATORY | | | | + + + + + SS-A RO Ab,IgG, Serum (07/04/2013 4:21 PM PDT) + + + + + + | Component | Value | Ref Range | Performed | Pathologist | | | | | At | Signature | + + + + + + | SS-A | <0.2Comment: Negative | <1.0 AI | [facility] | | | Autoantibod | Testing Performed: | | [facility] | | | y | [facility], [address], | | MEDICAL | | | | [place] [address] | | CENTER - | | | | [place]: [id number] | | LABORATORY | | + + + + + + + + | Specimen | + + | | + + + + + + + | Performing | Address | City/State/Zipcode | Phone Number | | Organization | | | | + + + + + | [facility] | [address] | [place], [place] | [phone] | | [facility] | | [address] | | | - LABORATORY | | | | + + + + + | [facility] | [address] | [place] | | | [facility] | | [address] | | | - LABORATORY | | | | + + + + + DNA Double-Stranded Ab, IgG (07/04/2013 4:21 PM PDT) + + + + + + | Component | Value | Ref Range | Performed | Pathologist | | | | | At | Signature | + + + + + + | dsDNA | 2Comment: Negative: | <5 IU/mL | [facility] | | | Autoantibod | Equal to or <4 | | [facility] | | | y | Testing Performed: | | MEDICAL | | | | [facility], [address], | | CENTER - | | | | [place] [address] | | LABORATORY | | | | CLIA: [id number] | | | | + + + + + + + + | Specimen | + + | | + + + + + + + | Performing | Address | City/State/Zipcode | Phone Number | | Organization | | | | + + + + + | [facility] | [address] | [place], [place] | [phone] | | [facility] | | [address] | | | - LABORATORY | | | | + + + + + | [facility] | [address] | [place] | | | [facility] | | [address] [place] [address] | | | - LABORATORY | | | | + + + + + Extractable Nuclear Autoantibodies (07/04/2013 4:21 PM PDT) + + + + + + | Component | Value | Ref Range | Performed | Pathologist | | | | | At | Signature | + + + + + + | ROWLEY | 0.2Comment: Negative | <1.0 AI | [facility] | | | Autoantibod | Testing Performed: | | [facility] | | | y | [address], | | MEDICAL | | | | [place] [address] | | CENTER - | | | | CLIA: [id number] | | LABORATORY | | + + + + + + | LOOM SETTER | 0.4Comment: Negative | <1.0 AI | [facility] | | | Autoantibod | Testing Performed: | | [facility] | | | y | [facility], [address], | | MEDICAL | | | | [place] [address] | | CENTER - | | | | CLIA: [id number] | | LABORATORY | | + + + + + + | SMRNP | <0.2Comment: Negative | <1.0 AI | [facility] | | | Autoantibod | Testing Performed: | | [facility] | | | y | [facility], [address], | | MEDICAL | | | | [place] [address] | | CENTER - | | | | CLIA: [id number] | | LABORATORY | | + + + + + + + + | Specimen | + + | | + + + + + + + | Performing | Address | City/State/Zipcode | Phone Number | | Organization | | | | + + + + + | [facility] | [address] | [place] | [phone] | | [facility] | | [address] | | | - LABORATORY | | | | + + + + + | [facility] | [address] | [place] | | | [facility] | | [address], [facility] | | | - LABORATORY | | | | + + + + + Aldolase (07/04/2013 4:21 PM PDT) + + + + + + | Component | Value | Ref Range | Performed | Pathologist | | | | | At | Signature | + + + + + + | Aldolase | 4.1Comment: REFERENCE | 1.5 - 8.1 U/L | [facility] | | | | INTERVAL: Aldolase | | [facility] | | | | Access complete set of | | MEDICAL | | | | age- and/or | | CENTER - | | | | gender-specific | | LABORATORY | | | | reference intervals | | | | | | for this test in the | | | | | | [facility] | | | | | | Directory (BaseTrace). | | | | | | Testing Performed: | | | | | | [facility], [address], | | | | | | [place], [place] | | | | | | [address] CLIA: | | | | | | [id number] | | | | + + + + + + + + | Specimen | + + | | + + + + + + + | Performing | Address | City/State/[facility] | Phone Number | | Organization | | | | + + + + + | [facility] | [address] | [place] | [phone] | | [facility] | | [address] | | | - LABORATORY | | | | + + + + + | [facility] | [address] | [place] | | | [facility] | | [address], [facility] | | | - LABORATORY | | | | + + + + + Rheumatoid Factor, Quant (07/04/2013 4:21 PM PDT) + + + + + + | Component | Value | Ref Range | Performed | Pathologist | | | | | At | Signature | + + + + + + | RHEUMATOID | <20Comment: Testing | <20 IU/mL | [facility] | | | FACTOR | Performed: [facility], [address] [facility] | | | | [address], [place] | | MEDICAL | | | | [address] CLIA: [id number] | | CENTER - | | | | | | LABORATORY | | + + + + + + + + | Specimen | + + | | + + + + + + + | Performing | Address | City/State/Zipcode | Phone Number | | Organization | | | | + + + + + | [facility] | [address] | [place], [place] | [phone] | | [facility] | | [address] | | | - LABORATORY | | | | + + + + + | [facility] | [address] | [place], [place] | | | [facility] | | [address], [facility] | | | - LABORATORY | | | | + + + + + CK Total (07/04/2013 4:21 PM PDT) + +-------+ + + + | Component | Value | Ref Range | Performed | Pathologist | | | | | At | Signature | + +-------+ + + + | CK TOTAL | 33 | 22 - 269 IU/L | [facility] | | | | | [...] + | [facility] | [address] | [place] | [phone] | | [facility] | | [address] | | | - LABORATORY | | | | + + + + + | [facility] | [address] | [place], [place] | | | [facility] | | [address], [facility] | | | - LABORATORY | | | | + + + + + Rheumatoid Factor, Quant (07/04/2013 4:21 PM PDT) + + + + + + | Component | Value | Ref Range | Performed | Pathologist | | | | | At | Signature | + + + + + + | RHEUMATOID | <20Comment: Testing | <20 IU/mL | [facility] | | | FACTOR | Performed: [facility], [address] | [facility] | | | | [place] [address], [place] | | MEDICAL | | | | [id number]: [id number] | | CENTER - | | | [...] [facility] | [address] | [place] | [phone] | | [facility] | | [address] | | | - LABORATORY | | | | + + + + + | [facility] | [address] | [place], [place] | | | [facility] | | [address] | | | - LABORATORY | | | | + + + + + CK Total (07/04/2013 4:21 PM PDT) + +-------+ + + + | Component | Value | Ref Range | Performed | Pathologist | | | | | At | Signature | + +-------+ + + + | CK TOTAL | 33 | 22 - 269 IU/L | [facility] | | | | | | [facility] [...] + + | [facility] | [address] | [place], [place] | [phone] | | [facility] | | [address] | | | - LABORATORY | | | | + + + + + | [facility] | [address] | [place], [place] | | | [facility] | | [address] [place] [address] | | | - LABORATORY | | | | + + + + + documented in this encounter Visit Diagnoses + + | Diagnosis | + + | Pulmonary hypertension (HCC) Other chronic pulmonary heart diseases | + + documented in this encounter"
--- OUTSIDE RECORDS SUMMARY | ~2020-03-24 | XMS | Encounter Summary ---
Demographics + + + | Address | [address] | | | [place] [address] | + + + | Home Phone [...] | Organization | [facility] | | | and [place] | + + + | Address | Unknown | + + + | Phone | Unavailable | + + + Support + + + + + | Name | Relationship | Address | Phone | + + + + + | [employer] | [place] | [id number] | | | | | Unknown | | + + + + + Care Team Providers + +------+ + | Care Apartment Leasing Specialist Name | Role | Phone | [...] | [address] [place] | [place], [place] [address] | | | | | [address] [place], [place] | [place], [place] | | | | | [address] | [address] | | | | | [phone] | | | +--------+ + + + [...] | | | | | [place] [address] | | | | | | [phone] | | | | | | | [...]
--- OUTSIDE RECORDS SUMMARY | ~2020-03-24 | XMS | Encounter Summary ---
Demographics + + + | Address | [address] | | | [place] [address] | + + + | Home Phone | | + + + | Preferred Language | Unknown | + + + | Marital Status | Single | + + + | Jewish Affiliation | NRP | + + + | Race | White | + + + | Ethnic Group | Not or | + + + Author + + + | Author | [facility] | + + + | Organization | [facility] | + + + | Address | Unknown | + + + | Phone | Unavailable | + + + Support + + +---------+ + | Name | Relationship | Address | Phone | + + +---------+ + | Lidia Thibodeaux | ECON | Unknown | | + + +---------+ + Care Team Providers + +------+ + | Care Manager Credit Collections Name | Role | Phone | + [...] | | | | Melanocytic | Yuni, MANNEQUIN MOLDER | Marivel C, | | | | | nevi, | [facility] | ,PhD 1936 | | | | | unspecified | Terence | Jose Carlos | | | | | | Family Care | [place], | | | | | | [address] | [place] [address] | | | | | | Terence Carter | Phone: | | | | | | [place], | [phone] | | | | | | [place] [address] | Fax: | | | | | | Phone: | [phone] | | | | | | [phone] | | | | | | | Fax: | | | | | | | [phone] | | +--------+--------+ + + + + Encounter Details +--------+---------+ + + + | Date | Type | Department | Care Team | Description | +--------+---------+ + + + | 07/19/ | Office | Dermatology at | Marivel Rao, | Nevus (Primary Dx) | | 2015 | Visit | [facility] | ,PhD 1936 | | | | | Clinic [address] | [address] [place], [place] | | | | | [place], [place] | [address] | | | | | [address] | [phone] | | | | | [phone] | | | +--------+---------+ + + + [...] skin cance rs including melanoma. ? The [place] [employer]at[employer] (AAD) recommends you wear [...] information is available at the following websites: http://www.[facility]/xd/health/services/dermatology/for-patients/health_info.cfm - [facility] Derm atology http://www.aad.org/public/sun/smart.html - AAD Website documented [...] cancer. 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 Vega skin type II. She does occasionally [...] fail to improve. Marivel Rao M.D. Ph.D. Automatic Typewriter Inspector Department of Dermatology [facility] ([facility] Dermatology documented in th is encounter Plan of Treatment Not on filedocumented as of this encounter Visit Diagnoses + + | Diagnosis | + + | Nevus - Primary Benign neoplasm of skin, site unspecified | + + documented in this encounter
--- OUTSIDE RECORDS SUMMARY | ~2020-03-24 | XMS | Encounter Summary ---
Demographics + + + | Address | [address] | | | [place] [address] | + + + | Home Phone | | + + + | Preferred Language | Unknown | + + + | Marital Status | Single | + + + | Jew Affiliation | 1009 | + + + | Race | Unknown | + + + | Ethnic Group | Unknown | + + + Author + + + | Author | [facility] | | | and [place] | + + + | Organization | [facility] | | | and [place] | + + + | Address | Unknown | + + + | Phone | Unavailable | + + + Support + + + + + | Name | Relationship | Address | Phone | + + + + + | Projects Horizon | ECON | [id number] | | | | | Unknown | | + + + + + Care Team Providers + +------+ + | Care Executive Administrative Assistant Name | Role | Phone | + [...] | | | | [place] | [address] | | | | | [place] | [phone] | | | | | [address] | | | | | | [phone] | | | +--------+ + + + [...] | | | | | [place] [address] | | | | | | [phone] | | | | | | | | +--------+---------+ + + + | 04/30/ | Office | Sleep Medicine | Jacky Calderon PA | | | 2019 | Visit | | [address] | | | | | | [place] | | | | | | [phone] | | | | | | | | +--------+---------+ + + + documented as of this encounter Visit Diagnoses Not on filedocumented in this encounter"
--- OUTSIDE RECORDS SUMMARY | ~2020-03-24 | XMS | Encounter Summary ---
Demographics + + + | Address | [address] | | | [place] [address] | + + + | Home Phone | | + + + | Preferred Language | Unknown | + + + | Marital Status | Single | + + + | Adventist Affiliation | 1009 | + + + | Race | Unknown | + + + | Ethnic Group | Unknown | + + + Author + + + | Author | [facility] | | | and [place] | + + + | Organization | [facility] | | | and [place] | + + + | Address | Unknown | + + + | Phone | Unavailable | + + + Support + + + + + | Name | Relationship | Address | Phone | + + + + + | Projects Horizon | ECON | [id number] | | | | | Unknown | | + + + + + Care Team Providers + +------+ + | Care Valve Fitter Name | Role | Phone | + +------+ + PCP | Unavailable | + +------+ + Encounter Details +--------+ + + + + | Date | Type | Department | Care Team | Description | +--------+ + + + + | 04/06/ | Hospital | [facility] | Conversion | | | 2011 | Encounter | [facility] | Transaction, | | | | | [facility] | Provider Unknown | | | | | [address] [facility] [place], | | | | | | [place] [address] | (Fax) | | | | | [phone] | | | +--------+ + + + [...] | | | | | [place] [address] | | | | | | [phone] | | | | | | | [...]
--- OUTSIDE RECORDS SUMMARY | ~2020-03-24 | XMS | Encounter Summary ---
Demographics + + + | Address | [address] | | | [place] [address] | + + + | Home Phone [...] | Organization | [facility] | | | and [place] | + + + | Address | Unknown | + + + | Phone | Unavailable | + + + Support + + + + + | Name | Relationship | Address | Phone | + + + + + | Projects Horizon | ECON | [id number] | | | | | Unknown | | + + + + + Care Team Providers + +------+ + | Care Agricultural Equipment Test Engineer Name | Role | Phone | [...] + | 04/23/ | Telephone | [facility] [place] | Fatou, | Other | | 2015 | | PULMONARY [address] | Vera Farrar MD | | | | | [place], | | | | | | [place] [address] | | | | | | [phone] | | | +--------+ + + + [...] | | | | | [place] [address] | | | | | | [phone] | | | | | | | | +--------+---------+ + + + | 04/30/ | Office | Sleep Medicine | Jacky Calderon PA | | | 2020 | Visit | | [address] | | | | | | [place] | | | | | | [address] | | | | | | | | +--------+---------+ + + + documented as of this encounter Visit Diagnoses Not on filedocumented in this encounter"
--- OUTSIDE RECORDS SUMMARY | ~2020-03-24 | XMS | Encounter Summary ---
Demographics + + + | Address | [address] | | | [place] [address] | + + + | Home Phone | | + + + | Preferred Language | Unknown | + + + | Marital Status | Single | + + + | Orthodoxy Affiliation | 1009 | + + + | Race | Unknown | + + + | Ethnic Group | Unknown | + + + Author + + + | Author | [facility] | | | and [place] | + + + | Organization | [facility] | | | and [place] | + + + | Address | Unknown | + + + | Phone | Unavailable | + + + Support + + + + + | Name | Relationship | Address | Phone | + + + + + | Projects Horizon | ECON | [id number] | | | | | Unknown | | + + + + + Care Team Providers + +------+ + | Care Payroll Representative Name | Role | Phone | + [...] [place], | | | | | | [place] [address] | | | | | | [phone] | | | +--------+ + + + [...] | | | | | [place] [address] | | | | | | [phone] | | | | | | | | +--------+---------+ + + + | 04/30/ | Office | Sleep Medicine | Jacky Calderon PA | | | 2019 | Visit | | [address] | | | | | | [place] | | | | | | [address] | | | | | | | | +--------+---------+ + + + documented as of this encounter Visit Diagnoses Not on filedocumented in this encounter"
--- OUTSIDE RECORDS SUMMARY | ~2020-03-24 | XMS | Encounter Summary ---
Demographics + + + | Address | [address] | | | [place] [address] | + + + | Home Phone [...] Organization | [facility] | | | and [place] | + + + | Address | Unknown | + + + | Phone | Unavailable | + + + Support + + + + + | Name | Relationship | Address | Phone | + + + + + | Projects Horizon | ECON | [id number] | | | | | Unknown | | + + + + + Care Team Providers + +------+ + | Care Industrial Illuminating Engineer Name | Role | Phone | [...] | [address] | [place] [address] | | | | | [place] | [phone] | | | | | [address] | | | | | | [phone] | Shady Mcdonald | | | | | | MD [address] | | | | | | [place], [place] | | | | | | [address] | | | | | | [phone] | | | | | | | [...] | | | | | [place] [address] | | | | | | [phone] | | | | | | | [...]
--- OUTSIDE RECORDS SUMMARY | ~2020-03-24 | XMS | Encounter Summary ---
Demographics + + + | Address | [address] | | | [place] [address] | + + + | Home Phone [...] + | Organization | [facility] | | | and [place] | + + + | Address | Unknown | + + + | Phone | Unavailable | + + + Support + + + + + | Name | Relationship | Address | Phone | + + + + + | Projects Horizon | ECON | [id number] | | | | | Unknown | | + + + + + Care Team Providers + +------+ + | Care Air Battle Manager Name | Role | Phone | + +------+ + | Yuni Shrestha | PCP | | + +------+ + Encounter Details +--------+ + + + + | Date | Type | Department | Care Team | Description | +--------+ + + + + | 06/12/ | Hospital | [facility] | [place], | Exercise hypoxemia | | 2014 | Encounter | MED CTR PULMONARY | Vera Farrar MD | ([facility]); Primary | | | | FUNCTION [address] | | pulmonary | | | | [place], | | hypertension | | | | [place] [address] | | | | | | [phone] | | | +--------+ + + + [...] + + + +---------+ + + | [place] Starch POWD | by Does not apply [...] + + + +---------+ + + | [place]-3 Fatty | Take by mouth. | | [...] 08/06/20 | | | Therapy Supplies | [facility]'s office | | | 13 | 8 [...] | | | | | [place] [address] | | | | | | [phone] | | | | | | | | +--------+---------+ + + + | 04/30/ | Office | Sleep Medicine | Jacky Calderon PA | | | 2019 | Visit | | [address] | | | | | | [place] | | | | | | [address] | | | | | | | [...] FUNCTION TESTING | | 9:41 AM | ([facility]) Primary | | | ORDERS [...]
--- OUTSIDE RECORDS SUMMARY | ~2020-03-24 | XMS | Encounter Summary ---
Demographics + + + | Address | [address] | | | [place] [address] | + + + | Home Phone [...] + + + | Author | [facility] | | | and [place] | + + + | Organization | [facility] | | | and [place] | + + + | Address | Unknown | + + + | Phone | Unavailable | + + + Support + + + + + | Name | Relationship | Address | Phone | + + + + + | Projects Horizon | ECON | [id number] | | | | | Unknown | | + + + + + Care Team Providers + +------+ + | Care Meter Reader Inspector Name | Role | Phone | + +------+ + | Gela Trimble NP | PCP | | + +------+ + Reason for Visit +--------+ + | Reason | Comments | +--------+ + | Apnea | | +--------+ + Encounter Details +--------+---------+ + + + | Date | Type | Department | Care Team | Description | +--------+---------+ + + + | 09/25/ | Office | [facility] | Jacky Calderon PA | Primary central | | 2012 | Visit | SLEEP DISORDER [address] | [address] | sleep apnea (Primary | | | | [address] [place] | [place], [place] | Dx) | | | | [place] [address] | [address] | | | | | [phone] | | | +--------+---------+ + + + [...] + + + | Blood Pressure | 98/74 | 09/25/2013 10:15 AM | | | | | PST | | + + + + + | Pulse | 71 | 09/25/2013 10:15 AM | | | | | PST | | + + + + + | Temperature | - | - | | + + + + + | Respiratory Rate | 16 | 09/25/2013 10:15 AM | | | | | PST | | + + + + + | Oxygen Saturation | 90% | 09/25/2013 10:15 AM | | | | | PST | | + + + + + | Inhaled Oxygen | - | - | | | Concentration | | | | + + + + + | Weight | 104.4 kg (230 lb 1.6 | 09/25/2013 10:15 AM | | | | oz) | PST | | + + + + + | Height | - | - | | + + + + + | Body Mass Index | 46.47 | 09/17/2013 11:05 AM | | | | | PST | | + + + + + documented in this encounter Progress Notes Jacky Calderon PA - 09/25/2013 10:13 AM PST Subjective: Patient ID: Margarita Rowley is a 48 y.o. female. HPI last office visit was: date of polysomnography: 03/13/2013 at [facility] AHI: 64.2 O2%: n/a Machine type: Respironics BiPAP Auto with ResMed Quattro FX full face mask obtained from: [facility] pressure: 18/14 cm Nights using BiPAP: 30/30 average usage (all nights): 7:11 average usage (nights used): 7:11 AHI: 11.5 Jessie comes in for BiPAP compliance. She has done well with her compliance, but was referre d by Dr. Lainez to help with her problems with leaks. Her apnea has been more controlle d when her leaks are controlled. She came in last week and was fitted with a ResMed Quattro FX full face mask instead of her previous full face mask. She is much more comfortable wit h the Quattro FX and has noticed a dramatic improvement in her leaks. Her caregiver has not iced an improvement in her daytime sleepiness during the last week of using this mask. I ch ecked her mask fit again today. There were no indications of leaks. She felt that it was f itting better than it ever had. I have discussed the download in detail. This shows that her sleep apnea is somewhat contr olled, with an AHI of 11.5. This is a significant improvement from her two previous downloa ds that showed an AHI of 54.6 and 20.5, respectively. I believe this will improve further a s her leaks continue to be improved. It also shows that her leaks are severe. Review of Systems Objective: Physical Exam Assessment: Problem #1: CENTRAL SLEEP APNEA (327.21) This is well controlled with BiPAP. Her BiPAP compliance is going well. Plan: She is to continue with BiPAP indefinitely. I will follow up again in 3 weeks, sooner prn. Thirty minutes were spent aqbd-th-yrkg, wit h the majority of time spent in counseling. [...] | | | | | [facility] | | | | | | [place] [address] | | | | | | [phone] | | | | | | | | +--------+---------+ + + + | 04/30/ | Office | Sleep Medicine | Jacky Calderon PA | | | 2019 | Visit | | [address] | | | | | | [place] | | | | | | [address] | | | | | | | | +--------+---------+ + + + documented as of this encounter Visit Diagnoses + + | Diagnosis | + + | Primary central sleep apnea - Primary | + + documented in this encounter"
--- OUTSIDE RECORDS SUMMARY | ~2020-03-24 | XMS | Encounter Summary ---
Demographics + + + | Address | [address] | | | [place] [address] | + + + | Home Phone | | + + + | Preferred Language | Unknown | + + + | Marital Status | Single | + + + | Anabaptism Affiliation | 1009 | + + + | Race | Unknown | + + + | Ethnic Group | Unknown | + + + Author + + + | Author | [facility] | | | and [place] | + + + | Organization | [facility] | | | and [place] | + + + | Address | Unknown | + + + | Phone | Unavailable | + + + Support + + + + + | Name | Relationship | Address | Phone | + + + + + | Projects Horizon | ECON | [id number] | | | | | Unknown | | + + + + + Care Team Providers + +------+ + | Care Bundle Collector Name | Role | Phone | + +------+ + | Gela Trimble NP | PCP | | + +------+ + Encounter Details +--------+ + + + + | Date | Type | Department | Care Team | Description | +--------+ + + + + | 09/17/ | Hospital | [facility] | [place], | Primary pulmonary | | 2012 | Encounter | MED CTR LABORATORY | Vera Farrar MD | hypertension (HCC) | | | | [address] [place] | | | | | | [place] | | | | | | [address] | | | | | | [phone] | | | +--------+ + + + [...] + + + +---------+ + + | [place] Starch POWD | by Does not apply [...] + + + +---------+ + + | [place]-3 Fatty | Take by mouth. | | [...] | | | | | [place] [address] | | | | | | [phone] | | | | | | | | +--------+---------+ + + + | 04/30/ | Office | Sleep Medicine | Jacky Calderon PA | | | 2019 | Visit | | [address] | | | | | | [place] | | | | | | [address] | | | | | | | [...] | performed on the Kathryn | | [employer] [facility] | | | | [place] [facility] | | MEDICAL | | | [...] + | [facility] | [address] | [place], [place] | [phone] | | [facility] | | [address] | | | - LABORATORY | | | | + + + + + | [facility] | [address] | [place], [place] | | | [facility] | | [address], [facility] | | | - LABORATORY | | | | + + + + + documented in this encounter Visit Diagnoses + + | Diagnosis | + + | Primary pulmonary hypertension (HCC) Primary pulmonary hypertension | + + documented in this encounter"
--- OUTSIDE RECORDS SUMMARY | ~2020-03-24 | XMS | Encounter Summary ---
Demographics + + + | Address | [address] | | | [place] [address] | + + + | Home Phone [...] + + + | Author | [facility] | | | and [place] | + + + | Organization | [facility] | | | and [place] | + + + | Address | Unknown | + + + | Phone | Unavailable | + + + Support + + + + + | Name | Relationship | Address | Phone | + + + + + | Projects Horizon | ECON | [id number] | | | | | Unknown | | + + + + + Care Team Providers + +------+ + | Care Compliance Vice President Name | Role | Phone | + [...] | Gastroenterol | Diagnoses | Fady, | [place], | | | | ogy | Dysphagia, | Yuni Hanh, | Varsha, | | | | | pharyngeal | PHYTOPATHOLOGIST [address] | PHYTOPATHOLOGIST [address] | | | | | phase | [address] | [place], [place] | | | | | Procedures | [place], | [address] [place] | | | | | Office Visit | [place] [address] | [place], [place] | | | | | | Phone: | [address] Phone: | | | | | | [phone] | [phone] | | | | | | Fax: | Fax: | | | | | | [phone] | [phone] | +--------+--------+ + + + + Encounter Details +--------+---------+ + + + | Date | Type | Department | Care Team | Description | +--------+---------+ + + + | 06/30/ | Office | [facility] [place] | [place], | Gastroesophageal | | 2016 | Visit | GASTROENTEROLOGY | BRITTANY Maddox [address] | reflux disease, | | | | [address] [place] | [place], [place] [address] | esophagitis presence | | | | [address] [place], [place] | [place], [place] | not specified | | | | [address] | [address] | (Primary Dx); | | | | [phone] | | Esophageal | | | | [...] Date COPD (chronic obstructive pulmonary disease) ([facility]) moderate, FEV1 1.40 (59%) Pulmonary hypertension (HCC) [...] gastrointestinal endoscopy 03-24-16 Esophagus barium swallow limited 03-16-16 Family History Problem Relation Age of Onset [...] Years of Education: N/A Occupational History Disabled. [employer] Social History Main Topics Smoking status: Former Smoker -- 1.00 packs/day for 20 years Types: Cigarettes Quit date: 12/15/2015 Smokeless tobacco: Never Used Alcohol Use: No Drug Use: No Sexual Activity: Not on file Other Topics Concern Not on file Social History Narrative Lives at [employer]. Review of systems: Constitutional:Denies any fevers, chills, [...] | | | | | [place] [address] | | | | | | [phone] | | | | | | | [...]
--- OUTSIDE RECORDS SUMMARY | ~2020-03-24 | XMS | Encounter Summary ---
Demographics + + + | Address | [address] | | | [place] [address] | + + + | Home Phone | | + + + | Preferred Language | Unknown | + + + | Marital Status | Single | + + + | Episcopalian Affiliation | NRP | + + + | Race | White | + + + | Ethnic Group | Not or | + + + Author + + + | Author | [facility] | + + + | Organization | [facility] | + + + | Address | Unknown | + + + | Phone | Unavailable | + + + Support + + +---------+ + | Name | Relationship | Address | Phone | + + +---------+ + | Lidia Thibodeaux | ECON | Unknown | | + + +---------+ + Care Team Providers + +------+ + | Care Handkerchief Sample Clerk Name | Role | Phone | [...] | | [place] | [address] | | | | | [address] | [phone] | | | | | [phone] | | | +--------+ + + + [...]
--- OUTSIDE RECORDS SUMMARY | ~2020-03-24 | XMS | Encounter Summary ---
Demographics + + + | Address | [address] | | | [place] [address] | + + + | Home Phone [...] + + + | Author | [facility] | | | and [place] | + + + | Organization | [facility] | | | and [place] | + + + | Address | Unknown | + + + | Phone | Unavailable | + + + Support + + + + + | Name | Relationship | Address | Phone | + + + + + | Projects Horizon | ECON | [id number] | | | | | Unknown | | + + + + + Care Team Providers + +------+ + | Care Support Representative Name | Role | Phone | + +------+ + | Yuni Shrestha | PCP | | + +------+ + Encounter Details +--------+ + + + + | Date | Type | Department | Care Team | Description | +--------+ + + + + | 02/01/ | [facility] | [facility] | Scout Arthur, | Lung nodule | | 2017 | Encounter | MED CTR XRAY [address] | | | | | [place] | [place] [address] | | | | | [place] [address] | [phone] | | | | | [phone] | | | +--------+ + + + [...] + + + +---------+ + + | [place] Starch POWD | by Does not apply [...] | | | | | [place] [address] | | | | | | [phone] | | | | | | | | +--------+---------+ + + + | 04/30/ | Office | Sleep Medicine | Jacky Calderon PA | | | 2019 | Visit | | [address] | | | | | | [place] | | | | | | [address] | | | | | | | [...] FINDINGS: Frontal and lateral views of | [facility] | | the chest. Lungs: No focal [...] ST. | [address] | [place] | [phone] | | [facility] | | [address] | | | - IMAGING | | | | + + + + + documented in this encounter Visit Diagnoses + + | Diagnosis | + + | Lung nodule Solitary pulmonary nodule | + + documented in this encounter"
--- OUTSIDE RECORDS SUMMARY | ~2020-03-24 | XMS | Encounter Summary ---
Demographics + + + | Address | [address] | | | [place] [address] | + + + | Home Phone [...] | Organization | [facility] | | | and [place] | + + + | Address | Unknown | + + + | Phone | Unavailable | + + + Support + + + + + | Name | Relationship | Address | Phone | + + + + + | Projects Horizon | ECON | [id number] | | | | | Unknown | | + + + + + Care Team Providers + +------+ + | Care Communications Consultant Name | Role | Phone | + +------+ + PCP | Unavailable | + +------+ + Encounter Details +--------+ + + + + | Date | Type | Department | Care Team | Description | +--------+ + + + + | 02/27/ | Hospital | [place] | [place] | | | 2011 | Encounter | HOSPITAL OBSTETRICS | [address] | | | | | [address] [place] | [place] | | | | | [place], [place] | [place], [place] | | | | | [address] | [address] | | | | | [phone] | [phone] | | | | | | | [...] | | | | | [place] [address] | | | | | | [phone] | | | | | | | [...]
--- OUTSIDE RECORDS SUMMARY | ~2020-03-24 | XMS | Encounter Summary ---
Demographics + + + | Address | [address] | | | [place] [address] | + + + | Home Phone | | + + + | Preferred Language | Unknown | + + + | Marital Status | Single | + + + | Temple Affiliation | 1009 | + + + | Race | Unknown | + + + | Ethnic Group | Unknown | + + + Author + + + | Author | [facility] | | | and [place] | + + + | Organization | [facility] | | | and [place] | + + + | Address | Unknown | + + + | Phone | Unavailable | + + + Support + + + + + | Name | Relationship | Address | Phone | + + + + + | [employer] | ECON | [id number] | | | | | Unknown | | + + + + + Care Team Providers + +------+ + | Care Second Hand Paper Machine Name | Role | Phone | + +------+ + | Gela Trimble NP | PCP | | + +------+ + Encounter Details +--------+ + + + + | Date | Type | Department | Care Team | Description | +--------+ + + + + | 08/27/ | Hospital | [facility] | Saharaenstein, | Primary pulmonary | | 2012 | Encounter | [facility] | Vera Farrar MD | hypertension (HCC) | | | | [address] | | | | | | [place] | | | | | | [address] | | | | | | [phone] | | | +--------+ + + + [...] | | | | | | | ([facility]) | | | | | | + + + +---------+ + + | buPROPion | Take 100 mg by mouth | | 0 | | | | (WELLBUTRIN) 100 mg | 2 times daily. | | | | 6 | | tablet | | | | | | + + + +---------+ + + | [place] Starch POWD | by Does not apply [...] + + + +---------+ + + | [place]-3 Fatty | Take by mouth. | | [...] Take 2 tablets by | 60 | 2 | 08/06/20 | | | (ADCIRCA) 20 mg | mouth Daily. | tablet | | 13 | 3 | | tablet | | [...] encounter Progress Notes Vera Lainez MD - 08/27/2013 5:19 PM PDT Quick Note: Please let the patient know their lab result is normal. Jennifer Meyer MD - 08/27/2013 12:39 PM PDT Quick Note: Please let the patient know their lab result is normal. documented in this encounter Plan of Treatment [...] | | | | | [place] [address] | | | | | | [phone] | | | | | | | | +--------+---------+ + + + | 04/30/ | Office | Sleep Medicine | Jacky Calderon PA | | | 2019 | Visit | | [address] | | | | | | [place] | | | | | | [phone] | | | | | | | | +--------+---------+ + + + documented as of this encounter Procedures + +--------+ + + + | Procedure Name | Priori | Date/Time | Associated Diagnosis | Comments | | | ty | | | | + +--------+ + + + | CBC NO DIFFERENTIAL | Routin | 08/27/2013 | Primary pulmonary | Results for this | | | e | 12:12 PM | hypertension (HCC) | procedure are in the | | | | PDT | | results section. | + +--------+ + + + | COMPREHENSIVE | Routin | 08/27/2013 | Primary pulmonary | Results for this | | METABOLIC PANEL | e | 12:12 PM | hypertension (HCC) | procedure are in the | | | | PDT | | results section. | + +--------+ + + + documented in this encounter Results Comprehensive Metabolic Panel (08/27/2013 12:12 PM PDT) + + + + + + | Component | Value | Ref Range | Performed | Pathologist | | | | | At | Signature | + + + + + + | Glucose | 85 | 70 - 109 mg/dL | [facility] | | | | | [facility] | | | | | | [facility] | | | | | | [facility] - | | | | | | LABORATORY | | + + + + + + | Calcium | 8.8 | 8.3 - 10.5 | [facility] | | | | | mg/dL | [facility] | [facility] | | | | | | [facility] - | | | | | | LABORATORY | | + + + + + + | Alkaline | 60 | 40 - 110 IU/L | [facility] | | | Phosphatase | | | [facility] | | | | | | [facility] | | | | | | CENTER - | | | | | | LABORATORY | | + + + + + + | AST | 20 | 10 - 42 IU/L | [facility] | | | | | | [facility] | | | | | | [facility] | | | | | | CENTER - | | | | | | LABORATORY | | + + + + + + | ALT | 12 | 6 - 45 IU/L | [facility] | | | | | | [facility] | | | | | | [facility] | | | | | | CENTER - | | | | | | LABORATORY | | + + + + + + | Bilirubin | 0.5 | 0.2 - 1.0 mg/dL | [facility] | | | Total | | | [facility] | | | | | | [facility] | | | | | | CENTER - | | | | | | LABORATORY | | + + + + + + | Total | 6.9 | 6.0 - 7.8 gm/dL | [facility] | | | Protein | | | [facility] | | | | | | [facility]ICAL | | | | | | CENTER - | | | | | | LABORATORY | | + + + + + + | Albumin | 3.2 | 3.2 - 5.0 gm/dL | [facility] | | | | | | [facility] | | | | | | [facility] | | | | | | CENTER - | | | | | | LABORATORY | | + + + + + + | BUN | 27 (H) | 7 - 18 mg/dL | [facility] | | | | | | [facility] | | | | | | [facility] | | | | | | CENTER - | | | | | | LABORATORY | | + + + + + + | Creatinine | 1.06 | 0.60 - 1.30 | [facility] | | | | | mg/dL | [facility] | | [facility] | | | [facility] | | | | | | CENTER - | | | | | | LABORATORY | | + + + + + + | Estimated | 55 (L)Comment: For | >60 mL/min/A | [facility] | | | GFR | -Americans, | | [facility] | | | | please multiply the | | MEDICAL | | | | result by 1.210 | | CENTER - | | | | This is an estimated GFR | | LABORATORY | | | | and is based on a | | | | | | standard adult | | | | | | body mass (A=1.73m2) and | | | | | | serum creatinine | | | | + + + + + + | BUN/Creatin | 25.5 (H) | 12 - 20 | [facility] | | | ine Ratio | | | [facility] | | | | | | MEDICAL | | | | | | CENTER - | | | | | | LABORATORY | | + + + + + + | Na | 138 | 136 - 149 mEq/L | [facility] | | | | | | [facility] | | | [facility] | | [facility] | | | | | | CENTER - | | | | | | LABORATORY | | + + + + + + | K | 4.0 | 3.5 - 5.1 mEq/l | [facility] | | | | | | [facility] | | | | | | [facility] | | | | | | CENTER - | | | | | | LABORATORY | | + + + + + + | Cl | 103 | 98 - 109 mEq/l | [facility] | | | | | | [facility] | | | | | | [facility]ICAL | | | | | | CENTER - | | | | | | LABORATORY | | + + + + + + | CO2 | 26 | 24 - 31 mEq/L | [facility] | | | | | | [facility] | | | | | | MEDICAL | | | | | | CENTER - | | | | | | LABORATORY | | + + + + + + | Anion Gap | 13.0 | 6.0 - 17.0 | [facility] | | | | | [...] | [address] | [place] | [phone] | | [facility] | | [address] | | | - LABORATORY | | | | + + + + + | [facility] | [address] | [place] | | | [facility] | | [address], [facility] | | | - LABORATORY | | | | + + + + + CBC no Differential (08/27/2013 12:12 PM PDT) + + + + + + | Component | Value | Ref Range | Performed | Pathologist | | | | | At | Signature | + + + + + + | WBC | 6.1 | 4.0 - 11.0 K/uL | [facility] | | | | | | [facility] | | | | | | MEDICAL | | | | | | CENTER - | | | | | | LABORATORY | | + + + + + + | RBC | 4.43 | 3.70 - 5.20 | [facility] | | | | | M/uL | [facility] | | | | | | MEDICAL | | | | | | CENTER - | | | | | | LABORATORY | | + + + + + + | Hemoglobin | 15.0 | 11.5 - 16.0 | [facility] | | | | | gm/dL | [facility] | | | | | | MEDICAL | | | | | | CENTER - | | | | | | LABORATORY | | + + + + + + | Hematocrit | 45.6 | 34.0 - 47.0 % | [facility] | | | | | | [facility] | | | | | | MEDICAL | | | | | | CENTER - | | | | | | LABORATORY | | + + + + + + | MCV | 102.9 (H) | 83.0 - 101.0 fL | [facility] | | | | | | [facility] | | | | | | MEDICAL | | | | | | CENTER - | | | | | | LABORATORY | | + + + + + + | MCH | 33.9 | 28.0 - 35.0 pg | [facility] | | | | | | [facility] | | | | | | MEDICAL | | | | | | CENTER - | | | | | | LABORATORY | | + + + + + + | MCHC | 32.9 | 32.0 - 36.0 | [facility] | | | | | g/dL | [facility] | | | | | | MEDICAL | | | | | | CENTER - | | | | | | LABORATORY | | + + + + + + | RDW-CV | 15.8 (H) | <15.0 % | [facility] | | | | | | [facility] | | | | | | MEDICAL | | | | | | CENTER - | | | | | | LABORATORY | | + + + + + + | Platelet | 149 | 140 - 440 K/uL | [facility] [...] + | [facility] | [address] | [place], [place] | [phone] | | [facility] | | [address] | | | - LABORATORY | | | | + + + + + | [facility] | [address] | [place], [place] | | | [facility] | | [address] [place] [address] | | | - LABORATORY | | | | + + + + + documented in this encounter Visit Diagnoses + + | Diagnosis | + + | Primary pulmonary hypertension (HCC) Primary pulmonary hypertension | + + documented in this encounter"
--- OUTSIDE RECORDS SUMMARY | ~2020-03-24 | XMS | Encounter Summary ---
Demographics + + + | Address | [address] | | | [place] [address] | + + + | Home Phone | | + + + | Preferred Language | Unknown | + + + | Marital Status | Single | + + + | Caodaism Affiliation | 1009 | + + + | Race | Unknown | + + + | Ethnic Group | Unknown | + + + Author + + + | Author | [facility] | | | and [place] | + + + | Organization | [facility] | | | and [place] | + + + | Address | Unknown | + + + | Phone | Unavailable | + + + Support + + + + + | Name | Relationship | Address | Phone | + + + + + | [employer] | ECON | [id number] | | | | | Unknown | | + + + + + Care Team Providers + +------+ + | Care Oracle Distribution Consultant Name | Role | Phone | [...] Farrar MD | | | | | [place], | | | | | | [place] [address] | | | | | | [phone] | | | +--------+ + + + [...] | | | | | [place] [address] | | | | | | [phone] | | | | | | | | +--------+---------+ + + + | 04/30/ | Office | Sleep Medicine | Jacky Calderon PA | | | 2020 | Visit | | [address] | | | | | | [place] | | | | | | [address] | | | | | | | | +--------+---------+ + + + documented as of this encounter Visit Diagnoses Not on filedocumented in this encounter"
--- OUTSIDE RECORDS SUMMARY | ~2020-03-24 | XMS | Encounter Summary ---
Demographics + + + | Address | [address] | | | [place] [address] | + + + | Home Phone [...] | Author | [facility] | | | and [place] | + + + | Organization | [facility] | | | and [place] | + + + | Address | Unknown | + + + | Phone | Unavailable | + + + Support + + + + + | Name | Relationship | Address | Phone | + + + + + | [employer] | ECON | [id number] | | | | | Unknown | | + + + + + Care Team Providers + +------+ + | Care Bottom Cager Name | Role | Phone | + [...] [place], [place] | | | | | [address] | [address] | | | | | [phone] | [phone] | | | | | | | [...] | | | | | [place] [address] | | | | | | [phone] | | | | | | | [...]
--- OUTSIDE RECORDS SUMMARY | ~2020-03-24 | XMS | Encounter Summary ---
Demographics + + + | Address | [address] | | | [place] [address] | + + + | Home Phone | | + + + | Preferred Language | Unknown | + + + | Marital Status | Single | + + + | Cheondoism Affiliation | 1009 | + + + | Race | Unknown | + + + | Ethnic Group | Unknown | + + + Author + + + | Author | [facility] | | | and [place] | + + + | Organization | [facility] | | | and [place] | + + + | Address | Unknown | + + + | Phone | Unavailable | + + + Support + + + + + | Name | Relationship | Address | Phone | + + + + + | [employer] | ECON | [phone] | | | | | Unknown | | + + + + + Care Team Providers + +------+ + | Care Fisher Gill Net Name | Role | Phone | + +------+ + | Gela Trimble TOPSTITCHER LOCKSTITCH | PCP | | + +------+ + [...] | Primary | [place], | [address] | | | | | pulmonary | Vera B, | [place], | | | | | hypertension | MD [address] | [place] | | | | | (HCC) | [address] | [address] | | | | | Procedures | [place], | Phone: | | | | | ECHO | [place] [address] | [phone] | | | | | Complete | | Fax: | | | | | | | [phone] | +--------+--------+ + + + + Reason [...] | | | Pulmonology | airway | TOPSTITCHER LOCKSTITCH [address] | MD [address] | | | | | obstruction, | [address] | [address] | | | | | not | [address] | [place], | | | | | elsewhere | [place], | [place] [address] | | | | | classified | [place] [address] | | | | | | COPD | Phone: | | | | | | Procedures | [phone] | | | | | | 3 MO FOLLOW | Fax: | | | | | | UP | [phone] | | +--------+--------+ + + + + Encounter Details +--------+---------+ + + + | Date | Type | Department | Care Team | Description | +--------+---------+ + + + | 06/11/ | Office | [facility] | [place], | Primary pulmonary | | 2013 | Visit | PULMONARY [address] | Vera Farrar MD | hypertension | | | | [address] [place], | | (Primary Dx); [place] | | | | [place] [address] | | (obstructive sleep | | | | [phone] | | apnea); COPD | | | [...] COPD (chronic obstructive pulmonary disease) ([facility]) moderate, FEV1 1.40 (59%) Pulmonary hypertension ([facility]) severe, class 1, class 2, class 3 Bipolar disorder (HCC) PTSD (post-traumatic stress disorder) Osteoarthritis Obstructive sleep apnea AHI 64.2 Vitamin D deficiency GERD (gastroesophageal reflux disease) Hypothyroidism Seizure disorder (HCC) Developmental delay Hypoxemia ([facility]) on 2L at rest, 4L with exertion Female stress incontinence Pyelonephritis Hypertension Impulse control disorder Hyperlipidemia Obesity Alcohol abuse Cocaine abuse Past Surgical History Past Surgical History Procedure Date Mouth surgery 2 teeth removed Cardiac catherization Social History: History Social History Marital Status: Single Spouse Name: N/A Number of Children: N/A Years of Education: N/A Occupational History Disabled. [employer] Social History Main Topics Smoking status: Former Smoker -- 1.0 packs/day for 20 years Types: Cigarettes Quit date: 05/14/2013 Smokeless tobacco: None Alcohol Use: Yes Comment: history of abuse Drug Use: Yes Special: Cocaine Comment: history of cocaine use Sexually Active: None Other Topics Concern None Social History Narrative Lives at [employer]. Allergies: Allergies Allergen Reactions Erythromycin Metronidazole Penicillins [...] TABS Take 2,000 Units by mouth Daily. [place] Starch POWD by Does not apply route [...] tablet Take 15 mg by mouth Daily. [place]-3 Fatty Acids (SEA-OMEGA 30) 1200 MG CAPS [...] 2 times daily. [DISCONTINUED] [facility] rate 8 cm H2O. IPAP 19/EPAP 5 . O2 bleed in at 2 l/m. Lifetime. Dx: 327.23 1 each 0 Respiratory Therapy Supplies [facility] Please contact Dr. Lainez's office if oxygen [...] doing well. We will check echocardiogram at [facility] low up appointment in 6 months. Continue higher dose [...] made to ensure accuracy; however, inadvertent computerized manager fitness errors may be pre sent. Electronically signed by: Vera Lainez MD 06/11/2014 8:55 documented in t his encounter Plan of [...] | | | | | [place] [address] | | | | | | [phone] | | | | | | | | +--------+---------+ + + + | 04/30/ | Office | Sleep Medicine | Jacky Calderon PA | | | 2020 | Visit | | [address] | | | | | | [place] | | | | | | [address] | | | | | | | | +--------+---------+ + + + documented as of this encounter Results ECHO Complete (09/11/2014 10:36 AM PST) + + | Specimen | + + | | + + + + + | Narrative | Performed At | + + + | [facility] ECHOCARDIOGRAM REPORT | [facility] | | STUDY DATE: 09/11/2014 PATIENT NAME: Margarita Rowley : | [facility] | | 1965 PCP: Gela Trimble TOPSTITCHER LOCKSTITCH | MEDICAL CENTER | | CLINICAL HISTORY/DIAGNOSIS: Pulmonary [...] | | Ananth Salguero MD PhD [facility] 09/11/2014 10:45 | | | Exterior Door Installer: Hung Caro, RDCS, RVT, RDMS | | + + + + + | Procedure Note | + + | Roberto Salguero MD - 09/12/2014 9:12 AM [facility] | | CENTERECHOCARDIOGRAM REPORTSTUDY DATE: 09/11/2014PATIENT NAME: Margarita MooreB: | | 1965MRN: [id number]: Gela Trimble, [facility]AGNOSIS: | | Pulmonary hypertensionA transthoracic echocardiogram [...] PP mmHgLA volume: 30 mLLA index: 16 mL/n4Wayqik Inflow DT: 272 | | msIVRT: 110 msValsalva: Not neededPWDTI S wave: 7.2 cm/sPWDTI E wave: 8.0 cm/sPWDTI | | A wave: 10.4 cm/sE/A Ratio: 0.769E/E Ratio: 10.63Signed by: Artie Salguero MD | | PhD [facility]ACC 09/11/2014 10:45 Exterior Door Installer: Hung Caro, RDCS, RVT, RDMS | |Tricuspid [...] | |Signed by: Artie Salguero MD PhD [facility] | | 09/11/2014 10:45 | | | | | |Exterior Door Installer: Hung Caro, RDCS, RVT, RDMS | + + + + + + + | Performing | Address | City/State/Zipcode | Phone Number | | Organization | | | | + + + + + | [facility] | [address] | [place], [place] | [phone] | | [facility] | | [address] | | | - IMAGING | | [...]
--- OUTSIDE RECORDS SUMMARY | ~2020-03-24 | XMS | Encounter Summary ---
Demographics + + + | Address | [address] | | | [place] [address] | + + + | Home Phone [...] | [facility] | | | and [place] | + + + | Address | Unknown | + + + | Phone | Unavailable | + + + Support + + + + + | Name | Relationship | Address | Phone | + + + + + | [employer] | ECON | [phone] | | | | | Unknown | | + + + + + Care Team Providers + +------+ + | Care Dry Primer Powder Blender Name | Role | Phone | + [...] | hypertension (HCC) | | | | [address] [place] | [place] [address] | (Primary Dx) | | | | [place] [address] | [phone] | | | | | [phone] | | | +--------+ + + + [...] | | | | | [place] [address] | | | | | | [phone] | | | | | | | | +--------+---------+ + + + | 07/01/ | Office | Sleep Medicine | Jacky Calderon PA | | | 2020 | Visit | | [address] | | | | | | [place] | | | | | | [address] | | | | | | | [...]
--- OUTSIDE RECORDS SUMMARY | ~2020-03-24 | XMS | Encounter Summary ---
Demographics + + + | Address | [address] | | | [place] [address] | + + + | Home Phone [...] Author + + + | Author | [facility] | | | and [place] | + + + | Organization | [facility] | | | and [place] | + + + | Address | Unknown | + + + | Phone | Unavailable | + + + Support + + + + + | Name | Relationship | Address | Phone | + + + + + | [employer] | ECON | [id number] | | | | | Unknown | | + + + + + Care Team Providers + +------+ + | Care Asp Web Developer Name | Role | Phone | + +------+ + | Yuni Shrestha | PCP | | + +------+ + Encounter Details +--------+ + + + + | Date | Type | Department | Care Team | Description | +--------+ + + + + | 03/20/ | Hospital | [facility] GENERIC IP | Conversion | Diagnosis unknown | | 2016 | Encounter | CONVERSION DEP [address] | Transaction, | | | | | [address] | Provider Unknown | | | | | [place] | [phone] | | | | | [address] | | | | | | [phone] | | | +--------+ + + + [...] + + + +---------+ + + | Sebago Starch POWD | by Does not apply [...] | | | | | [place] [address] | | | | | | [phone] | | | | | | | | +--------+---------+ + + + | 04/30/ | Office | Sleep Medicine | Jacky Calderon PA | | | 2019 | Visit | | [address] | | | | | | [place] | | | | | | [address] | | | | | | | | +--------+---------+ + + + documented as of this encounter Visit Diagnoses + + | Diagnosis | + + | Diagnosis unknown Other unknown and unspecified cause of morbidity or mortality | + + documented in this encounter"
--- OUTSIDE RECORDS SUMMARY | ~2020-03-24 | XMS | Encounter Summary ---
Demographics + + + | Address | [address] | | | [place] [address] | + + + | Home Phone | | + + + | Preferred Language | Unknown | + + + | Marital Status | Single | + + + | Congregation Affiliation | 1009 | + + + | Race | Unknown | + + + | Ethnic Group | Unknown | + + + Author + + + | Author | [facility] | | | and [place] | + + + | Organization | [facility] | | | and [place] | + + + | Address | Unknown | + + + | Phone | Unavailable | + + + Support + + + + + | Name | Relationship | Address | Phone | + + + + + | [employer] | ECON | [phone] | | | | | Unknown | | + + + + + Care Team Providers + +------+ + | Care Animation Artist Name | Role | Phone | + [...] + + | 05/21/ | Office | [facility] | Jacky Calderon PA | Primary central | | 2014 | Visit | SLEEP DISORDER [address] | [address] | sleep apnea (Primary | | | | [address] | [place], [place] | Dx) | | | | [place] [address] | [address] | | | | | [phone] | | | +--------+---------+ + + + [...] was: 01/23/2014 date of polysomnography: 03/13/2013 at [facility] AHI: 64.2 O2%: n/a Machine type: Respironics BiPAP Auto with ResPicaboo Quattro FX full face mask obtained from: [facility] pressure: 16/5 cm with backup rate of [...] year, sooner prn. Fifteen minutes were spent yeci-wd-sorp, with the majority of time spent in [...] | | | | | [place] [address] | | | | | | [phone] | | | | | | | | +--------+---------+ + + + | 04/30/ | Office | Sleep Medicine | Jacky Calderon PA | | | 2019 | Visit | | [address] | | | | | | [place] | | | | | | [id number] | | | | | | | | +--------+---------+ + + + documented as of this encounter Visit Diagnoses + + | Diagnosis | + + | Primary central sleep apnea - Primary | + + documented in this encounter"
--- OUTSIDE RECORDS SUMMARY | ~2020-03-24 | XMS | Encounter Summary ---
Demographics + + + | Address | [address] | | | [place] [address] | + + + | Home Phone | | + + + | Preferred Language | Unknown | + + + | Marital Status | Single | + + + | Jewish Affiliation | 1009 | + + + | Race | Unknown | + + + | Ethnic Group | Unknown | + + + Author + + + | Author | [facility] | | | and [place] | + + + | Organization | [facility] | | | and [place] | + + + | Address | Unknown | + + + | Phone | Unavailable | + + + Support + + + + + | Name | Relationship | Address | Phone | + + + + + | [employer] | ECON | [phone] | | | | | Unknown | | + + + + + Care Team Providers + +------+ + | Care Medical Claims Analyst Name | Role | Phone | + +------+ + | Gela Trimble NP | PCP | | + +------+ + Reason for Visit +--------+ + | Reason | Comments | +--------+ + | Other | nocturnal O2 increase | +--------+ + Encounter Details +--------+ + + + + | Date | Type | Department | Care Team | Description | +--------+ + + + + | 12/27/ | Telephone | [facility] [place] | [place], | Other (nocturnal O2 | | 2013 | | PULMONARY [address] | Vera Farrar MD | increase) | | | | [place], | | | | | | [place] [address] | | | | | | [phone] | | | +--------+ + + + [...] | | | | | [place] [address] | | | | | | [phone] | | | | | | | | +--------+---------+ + + + | 04/30/ | Office | Sleep Medicine | Jacky Calderon PA | | | 2019 | Visit | | [address] | | | | | | [place] | | | | | | [address] | | | | | | | | +--------+---------+ + + + documented as of this encounter Visit Diagnoses Not on filedocumented in this encounter"
--- OUTSIDE RECORDS SUMMARY | ~2020-03-24 | XMS | Encounter Summary ---
Demographics + + + | Address | [address] | | | [place] [address] | + + + | Home Phone | | + + + | Preferred Language | Unknown | + + + | Marital Status | Single | + + + | Buddhist Affiliation | 1009 | + + + | Race | Unknown | + + + | Ethnic Group | Unknown | + + + Author + + + | Author | [facility] | | | and [place] | + + + | Organization | [facility] | | | and [place] | + + + | Address | Unknown | + + + | Phone | Unavailable | + + + Support + + + + + | Name | Relationship | Address | Phone | + + + + + | [employer] | ECON | [id number] | | | | | Unknown | | + + + + + Care Team Providers + +------+ + | Care Computer Repair Instructor Name | Role | Phone | [...] | | | | | | [place] [address] | | | | | | [phone] | | | +--------+ + + + [...] | | | | | [place] [address] | | | | | | [phone] | | | | | | | | +--------+---------+ + + + | 04/30/ | Office | Sleep Medicine | Jacky Calderon PA | | | 2019 | Visit | | [address] | | | | | | [place] | | | | | | [address] | | | | | | | [...] eGFR, | 58 (A) | 60 - 150,999 | EXTERNAL | | | External | [...] ST. | [address] | [place], [place] | | | [facility] | | [address] | | | - LABORATORY | [...] | [address] | [place] | | | [facility] | | [address] | | | - LABORATORY | | | | + + + + + documented in this encounter Visit Diagnoses Not on filedocumented in this encounter"
--- OUTSIDE RECORDS SUMMARY | ~2020-03-24 | XMS | Encounter Summary ---
Demographics + + + | Address | [address] | | | [place] [address] | + + + | Home Phone [...] Organization | [facility] | | | and [place] | + + + | Address | Unknown | + + + | Phone | Unavailable | + + + Support + + + + + | Name | Relationship | Address | Phone | + + + + + | [employer] | ECON | [phone] | | | | | Unknown | | + + + + + Care Team Providers + +------+ + | Care Hoop Maker Helper Machine Name | Role | Phone | + +------+ + | Gela Trimble CHEESE PANCAKE ROLLER | PCP | | + +------+ + [...] | Primary | [place], | [address] | | | | | pulmonary | Vera B, | [place], | | | | | hypertension | MD [address] | [place] | | | | | (HCC) | [address] | [address] | | | | | Procedures | [place], | Phone: | | | | | ECHO | [place] [address] | [phone] | | | | | Complete | | Fax: | | | | | APPT | | [phone] | | | | | 03/18/14. | [...] + + | 12/17/ | Office | [facility] | [place], | Primary pulmonary | | 2013 | Visit | PULMONARY [address] | Vera Farrar MD | hypertension | | | | [place], | | (Primary Dx); [place] | | | | [place] [address] | | (obstructive sleep | | | | [phone] | | apnea); COPD | | | [...] [place] [facility] [place] [facility] [address] [place], [address] HPI Margarita Rowley is a 48 y.o. [...] Years of Education: N/A Occupational History Disabled. [employer] Social History Main Topics Smoking status: Former Smoker -- 1.0 packs/day for 20 years Types: Cigarettes Quit date: 05/14/2013 Smokeless tobacco: None Alcohol Use: Yes Comment: history of abuse Drug Use: Yes Special: Cocaine Comment: history of cocaine use Sexually Active: None Other Topics Concern None Social History Narrative Lives at [place]. Allergies: Allergies Allergen Reactions Erythromycin Metronidazole Penicillins [...] TABS Take 2,000 Units by mouth Daily. [place] Starch POWD by Does not apply route [...] mg by mouth 2 times da jammie. Novelty-3 Fatty Acids (SEA-OMEGA 30) 1200 MG CAPS [...] sounds are diminished bilaterally, no wheezes, aircraft time clerk ckles or rhonchi Chest Wall: No deformity [...] increased to 98. VPAP Data: Dates: 10/21/13-11/19/13 [employer]: In Home Medical Machine type: Respironics [...] fit, issues with adjusting machine with the Dialective and with her AHI remaining high despite [...] made to ensure accuracy; however, inadvertent computerized prosthetics lab technician errors may be pre sent. documented in [...] | | | | | | [place] [address] | | | | | | [phone] | | | | | | | | +--------+---------+ + + + | 04/30/ | Office | Sleep Medicine | Jacky Calderon PA | | | 2019 | Visit | | [address] | | | | | | [place] | | | | | | [address] | | | | | | | | +--------+---------+ + + + documented as of this encounter Results ECHO Complete (03/12/2014 8:36 AM PDT) + + | Specimen | + + | | + + + + + | Narrative | Performed At | + + + | [facility]PORT | [place]TON [place] | | STUDY DATE: 03/12/2014 PATIENT NAME: Margarita Rowley : | [facility] | | 1965 PCP: Gela Trimble CLINICAL [facility] | | HISTORY/DIAGNOSIS: PULM HTN A transthoracic [...] | | S. Ananth Salguero MD PhD 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 Teacher: Hung Caro, JUANITOCS, RVT, RDMS | | + + + + + | Procedure Note | + + | Roberto Salguero MD - 03/12/2014 6:05 PM [facility] | | CENTERECHOCARDIOGRAM REPORTSTUDY DATE: 03/12/2014PATIENT NAME: Margarita Vora: | | 1965MRN: [id number]: Gela TrimbleCLINICAL HISTORY/DIAGNOSIS: PULM HTNA | | [...] | mmHgLA volume: 34 mLLA index: 18 mL/a4Zqltzu Inflow DT: 290 msIVRT: 117 msValsalva: | | YES, TO NO EFFECTPWDTI S wave: 12.0 cm/sPWDTI E wave: 15.5 cm/sPWDTI A wave: 24.1 | | cm/sE/A Ratio: 0.643E/E Ratio: Signed by: Artie Salguero MD PhD [facility] 03/12/2014 | | 8:38 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 | [address] | [place], [place] | [phone] | | [facility] | | [address] | | | - IMAGING | | [...]
--- OUTSIDE RECORDS SUMMARY | ~2020-03-24 | XMS | Encounter Summary ---
Demographics + + + | Address | [address] | | | [place] [address] | + + + | Home Phone [...] | Organization | [facility] | | | and [place] | + + + | Address | Unknown | + + + | Phone | Unavailable | + + + Support + + + + + | Name | Relationship | Address | Phone | + + + + + | [employer] | ECON | [id number] | | | | | Unknown | | + + + + + Care Team Providers + +------+ + | Care Textile Scrap Salvager Name | Role | Phone | + +------+ + PCP | Unavailable | + +------+ + Encounter Details +--------+ + + + + | Date | Type | Department | Care Team | Description | +--------+ + + + + | 04/06/ | Hospital | [facility] | Angel Carvajal | | | 2011 | Encounter | HOSPITAL EMERGENCY | MD Gabriella [address] | | | | | CENTER [address] | [place] | | | | | [place] | [address] | | | | | [address] | [phone] | | | | | [phone] | | | +--------+ + + + [...] | | | | | [place] [address] | | | | | | [phone] | | | | | | | | +--------+---------+ + + + | 04/30/ | Office | Sleep Medicine | Jacky Calderon PA | | | 2020 | Visit | | [address] | | | | | | [place] | | | | | | [address] | | | | | | | | +--------+---------+ + + + documented as of this encounter Visit Diagnoses Not on filedocumented in this encounter"
--- OUTSIDE RECORDS SUMMARY | ~2020-03-24 | XMS | Clinical Summary ---
Demographics + + + | Address | [address] | | | [place] [address] | + + + | Home Phone | | + + + | Preferred Language | Unknown | + + + | Marital Status | Single | + + + | Episcopal Affiliation | Unknown | + + + | Race | Unknown | + + + | Ethnic Group | Unknown | + + + Author + + + | Author | [facility] (Historical as of | | | 06-16-19) | + + + | Organization | [facility] (Historical as of | | | 06-16-19) | + + + | Address | Unknown | + + + | Phone | Unavailable | + + + Support + + + + + | Name | Relationship | Address | Phone | + + + + + | Suma Benton | ECON | [address] | | | | | [place] | | | | | [address] | | + + + + + | Lidia Thibodeaux | ECON | Unknown | | + + + + + Care Team Providers + +------+ + | Care Labor Contractor Name | Role | Phone | + +------+ + | Gela Trimble | PP | Unavailable | + +------+ + Allergies + + + + + + | Active Allergy | Reactions | Severity | Noted | Comments | | | | | Date | | + + + + + + | Erythromycin | Other (See Comments) | Medium | 04/04/20 | Unsure the | | | | | 14 | reaction was told as | | | | | | child not to have | | | | | | it | + + + + + + | Metronidazole | Other (See Comments) | Medium | 04/04/20 | Unsure was told as | | | | | 14 | a child not to take | + + + + + + | Other-Food | Seizure | High | 04/04/20 | PEAS | | | | | 14 | | + + + + + + | Penicillins | Seizure | High | 04/04/20 | | | | | | 14 | | + + + + + + | Sulfa Antibiotics | Other (See Comments) | Medium | 04/04/20 | Unsure was told as | | | | | 14 | child not to take | + + + + + + Current Medications + + +-------+---------+------+------+-------+ | Prescription | Sig. | Disp. | Refills | Star | End | Statu | | | | | | t | Date | s | | | | | | Date | | | + + +-------+---------+------+------+-------+ | trolamine | Apply topically as | | | | | Activ | | salicylate | needed. | | | | | e | | (ASPERCREME) 10 % | | | | | | | | cream | | | | | | | + + +-------+---------+------+------+-------+ | albuterol | Inhale 2 puffs into | | | | | Activ | | (PROVENTIL | the lungs as needed. | | | | | e | | HFA;VENTOLIN HFA) | | | | | | | | 108 (90 BASE) | | | | | | | | MCG/ACT inhaler | | | | | | | + + +-------+---------+------+------+-------+ | buPROPion | Take 100 mg by mouth | | | | | Activ | | (WELLBUTRIN) 100 MG | daily. | | | | | e | | tablet | | | | | | | + + +-------+---------+------+------+-------+ | cetirizine | Take 10 mg by mouth | | | | | Activ | | (ZYRTEC) 10 MG | daily. | | | | | e | | tablet | | | | | | | + + +-------+---------+------+------+-------+ | docusate sodium | Take by mouth | | | | | Activ | | (COLACE) 50 MG | daily. | | | | | e | | capsule | | | | | | | + + +-------+---------+------+------+-------+ | divalproex | Take 250 mg by mouth | | | | | Activ | | (DEPAKOTE) 250 MG EC | daily. | | | | | e | | tablet | | | | | | | + + +-------+---------+------+------+-------+ | divalproex | Take 500 mg by mouth | | | | | Activ | | (DEPAKOTE) 500 MG EC | daily. | | | | | e | | tablet | | | | | | | + + +-------+---------+------+------+-------+ | fish oil-omega-3 | Take 1,000 mg by | | | | | Activ | | fatty acids 1000 MG | mouth daily. | | | | | e | | capsule | | | | | | | + + +-------+---------+------+------+-------+ | furosemide (LASIX) | Take 80 mg by mouth | | | | | Activ | | 80 MG tablet | 2 (two) times daily. | | | | | e | + + +-------+---------+------+------+-------+ | gabapentin | Take 300 mg by mouth | | | | | Activ | | (NEURONTIN) 300 MG | 3 (three) times | | | | | e | | capsule | daily. | | | | | | + + +-------+---------+------+------+-------+ | ambrisentan | Take 10 mg by mouth | | | | | Activ | | (LETAIRIS) 10 MG | daily. | | | | | e | | tablet | | | | | | | + + +-------+---------+------+------+-------+ | levothyroxine | Take 175 mcg by | | | | | Activ | | (SYNTHROID) 175 MCG | mouth daily. | | | | | e | | tablet | | | | | | | + + +-------+---------+------+------+-------+ | acetaminophen | Take 325 mg by mouth | | | | | Activ | | (TYLENOL) 325 MG | as needed. | | | | | e | | tablet | | | | | | | + + +-------+---------+------+------+-------+ | meloxicam (MOBIC) | Take 15 mg by mouth | | | | | Activ | | 15 MG tablet | daily. | | | | | e | + + +-------+---------+------+------+-------+ | miconazole | Apply topically as | | | | | Activ | | (MICOTIN) 2 % cream | needed. | | | | | e | + + +-------+---------+------+------+-------+ | magnesium | Take 30 mLs by mouth | | | | | Activ | | hydroxide (MILK OF | daily as needed. | | | | | e | | MAGNESIA) 400 MG/5ML | | | | | | | | suspension | | | | | | | + + +-------+---------+------+------+-------+ | omeprazole | Take 20 mg by mouth | | | | | Activ | | (PRILOSEC) 20 MG | daily. | | | | | e | | capsule | | | | | | | + + +-------+---------+------+------+-------+ | ondansetron | Take 4 mg by mouth | | | | | Activ | | (ZOFRAN) 4 MG tablet | every 8 (eight) | | | | | e | | | hours as needed. | | | | | | + + +-------+---------+------+------+-------+ | Oxygen (outpatient | Inhale into the | | | | | Activ | | therapy) | lungs. Check twice | | | | | e | | | daily to ensure | | | | | | | | keo is using her | | | | | | | | oxygen and it is set | | | | | | | | at 2L continues, DO | | | | | | | | NOT chance to 4L | | | | | | | | unless saturation | | | | | | | | drops below 89%. NO | | | | | | | | SMOKING!! Please | | | | | | | | make sure she does | | | | | | | | not use petroleum | | | | | | | | products while using | | | | | | | | oxygen, it is a | | | | | | | | fire hazard. When | | | | | | | | Keo is sleep her | | | | | | | | O2 must be set at | | | | | | | | 5L. | | | | | | + + +-------+---------+------+------+-------+ | PARoxetine (PAXIL) | Take 20 mg by mouth | | | | | Activ | | 20 MG tablet | every morning. | | | | | e | + + +-------+---------+------+------+-------+ | potassium citrate | Take 20 mEq by mouth | | | | | Activ | | (UROCIT-K) 10 MEQ | daily. | | | | | e | | (1080 MG) SR tablet | | | | | | | + + +-------+---------+------+------+-------+ | beclomethasone | Inhale 1 puff into | | | | | Activ | | (QVAR) 80 MCG/ACT | the lungs 2 (two) | | | | | e | | inhaler | times daily. | | | | | | + + +-------+---------+------+------+-------+ | risperidone | Take 4 mg by mouth | | | | | Activ | | (RISPERDAL) 4 MG | daily. | | | | | e | | tablet | | | | | | | + + +-------+---------+------+------+-------+ | simvastatin | Take 20 mg by mouth | | | | | Activ | | (ZOCOR) 20 MG tablet | daily. | | | | | e | + + +-------+---------+------+------+-------+ | cyanocobalamin | Take 1,000 mcg by | | | | | Activ | | (VITAMIN B-12) 1000 | mouth daily. | | | | | e | | MCG tablet | | | | | | | + + +-------+---------+------+------+-------+ | ascorbic acid | Take 500 mg by mouth | | | | | Activ | | (VITAMIN C) 500 MG | 2 (two) times | | | | | e | | tablet | daily. | | | | | | + + +-------+---------+------+------+-------+ | Cholecalciferol | Take 2,000 Units by | | | | | Activ | | (VITAMIN D3) 2000 | mouth daily. | | | | | e | | UNITS TABS | | | | | | | + + +-------+---------+------+------+-------+ Active Problems Not on file Family History + + +------+ + | Medical History | Relation | Name | Comments | + + +------+ + | Hypertension | Maternal | | | | | Aunt | | | + + +------+ + + +------+--------+ + | Relation | Name | Status | Comments | + +------+--------+ + | Maternal Aunt | | | | + +------+--------+ + Social History + + + +--------+ + | Tobacco Use | Types | Packs/Day | Years | Date | | | | | Used | | + + + +--------+ + | Former Smoker | Cigarettes | 2 | 37 | Quit: 04/04/2013 | + + + +--------+ + + +-------+---+---+ | Smokeless Tobacco: | Snuff | | | | Former User | | | | + +-------+---+---+ + + +---------+ + | Alcohol Use | Drinks/We | oz/Week | Comments | | | ek | | | + + +---------+ + | No | | | former user | + + +---------+ + + + + | Sex Assigned at | Date Recorded | | | | + + + | Not on file | | + + + Last Filed Vital Signs + + + + | Vital Sign | Reading | Time Taken | + + + + | Blood Pressure | 109/76 | 04/04/2014 11:19 AM PDT | + + + + | Pulse | 83 | 04/04/2014 11:19 AM PDT | + + + + | Temperature | - | - | + + + + | Respiratory Rate | - | - | + + + + | Oxygen Saturation | - | - | + + + + | Inhaled Oxygen | - | - | | Concentration | | | + + + + | Weight | 97.1 kg (214 lb) | 04/04/2014 11:19 AM PDT | + + + + | Height | 152.4 cm (5') | 04/04/2014 11:19 AM PDT | + + + + | Body Mass Index | 41.79 | 04/04/2014 11:19 AM PDT | + + + + Plan of Treatment + + + + + | Health Maintenance | Due Date | Last Done | Comments | + + + + + | Vaccine: | | | | | Dtap/Tdap/Td (1 - | 2 | | | | Tdap) | | | | + + + + + | Cervical Cancer | | | | | Screening (Pap) | 3 | | | + + + + + | Breast Cancer | | | | | Screening | 3 | | | | (Mammogram) | | | | + + + + + | Colon Cancer | | | | | Screening | 3 | | | | (Colonoscopy) | | | | + + + + + | Vaccine: Zoster (1 | | | | | of 2) | 3 | | | + + + + + | Lung Cancer | | | | | Screening | 8 | | | + + + + + | Vaccine: Influenza | | 08/15/2017 | | | (Season Ended) | 0 | | | + + + + + Results Not on filefrom Last 3 Months Insurance + +--------+ +------+-------+ + | Payer | Benefi | Subscriber | Type | Phone | Address | | | t Plan | ID | | | | | | / | | | | | | | Group | | | | | + +--------+ +------+-------+ + | MEDICAID | [place] | [id number] | | | [address] | | | N | | | | [place] | | | [place] | | | | [address] | | | GLOBAL COMMODITY MANAGER | | | | | + +--------+ +------+-------+ + + +--------+ +--------+ + + | Guarantor Name | Accoun | Relation to | Date | Phone | Billing Address | | | t Type | Patient | of | | | | | | | | | | + +--------+ +--------+ + + | KEO ROWLEY | Person | Self [birth year] | Work: | [address] | | | karlos/Kalpesh | | 1965 | [phone] | [place] [address] | | | jammie | | | [address] Home: | | | | | | | | | | | | | | [phone] | | | | | | [address]85 | | + +--------+ +--------+ + +"
--- OUTSIDE RECORDS SUMMARY | ~2020-03-24 | XMS | Encounter Summary ---
Demographics + + + | Address | [address] | | | [place] [address] | + + + | Home Phone | | + + + | Preferred Language | Unknown | + + + | Marital Status | Single | + + + | Jain Affiliation | 1009 | + + + | Race | Unknown | + + + | Ethnic Group | Unknown | + + + Author + + + | Author | [facility] | | | and [place] | + + + | Organization | [facility] | | | and [place] | + + + | Address | Unknown | + + + | Phone | Unavailable | + + + Support + + + + + | Name | Relationship | Address | Phone | + + + + + | [employer] | ECON | [id number] | | | | | Unknown | | + + + + + Care Team Providers + +------+ + | Care Finisher Hot Strip Name | Role | Phone | + +------+ + | Gela Trimble NP | PCP | | + +------+ + Encounter Details +--------+ + + + + | Date | Type | Department | Care Team | Description | +--------+ + + + + | 12/17/ | [facility] | [facility] | [place], | | | 2013 | Encounter | MED CTR GENERIC OP | Vera Farrar MD | | | | | CONV DEPT [address] | | | | | | [place], | | | | | | [place] [address] | | | | | | [phone] | | | +--------+ + + + [...] + + + +---------+ + + | [place] Starch POWD | by Does not apply [...] + + + +---------+ + + | [place]-3 Fatty | Take by mouth. | | [...] | | | | | [place] [address] | | | | | | [phone] | | | | | | | | +--------+---------+ + + + | 04/30/ | Office | Sleep Medicine | Jacky Calderon PA | | | 2020 | Visit | | [address] | | | | | | [place] | | | | | | [id number] | | | | | | | | +--------+---------+ + + + documented as of this encounter Visit Diagnoses Not on filedocumented in this encounter"
--- OUTSIDE RECORDS SUMMARY | ~2020-03-24 | XMS | Encounter Summary ---
Demographics + + + | Address | [address] | | | [place] [address] | + + + | Home Phone [...] [facility] | | | and [place] | + + + | Address | Unknown | + + + | Phone | Unavailable | + + + Support + + + + + | Name | Relationship | Address | Phone | + + + + + | [employer] | ECON | [id number] | | | | | Unknown | | + + + + + Care Team Providers + +------+ + | Care Long Chain Beamer Name | Role | Phone | + [...] [place], | | | | | | [place] [address] | | | | | | [phone] | | | +--------+ + + + [...] | | | | | [place] [address] | | | | | | [phone] | | | | | | | | +--------+---------+ + + + | 04/30/ | Office | Sleep Medicine | Jacky Calderon PA | | | 2020 | Visit | | [address] | | | | | | [place] | | | | | | [address] | | | | | | | | +--------+---------+ + + + documented as of this encounter Visit Diagnoses Not on filedocumented in this encounter"
--- OUTSIDE RECORDS SUMMARY | ~2020-03-24 | XMS | Encounter Summary ---
Demographics + + + | Address | [address] | | | [place] [address] | + + + | Home Phone [...] | Organization | [facility] | | | and [place] | + + + | Address | Unknown | + + + | Phone | Unavailable | + + + Support + + + + + | Name | Relationship | Address | Phone | + + + + + | [employer] | ECON | [id number] | | | | | Unknown | | + + + + + Care Team Providers + +------+ + | Care Director Of Analytics Name | Role | Phone | + +------+ + | Yuni Shrestha | PCP | | + +------+ + Encounter Details +--------+ + + + + | Date | Type | Department | Care Team | Description | +--------+ + + + + | 06/12/ | Hospital | [facility] | [place], | Exercise hypoxemia | | 2014 | Encounter | MED CTR PULMONARY | Vera Farrar MD | ([facility]); Primary | | | | FUNCTION [address] | | pulmonary | | | | [place], | | hypertension | | | | [place] [address] | | | | | | [phone] | | | +--------+ + + + [...] + + + +---------+ + + | [place] Starch POWD | by Does not apply [...] + + + +---------+ + + | [place]-3 Fatty | Take by mouth. | | [...] 08/06/20 | | | Therapy Supplies | [facility]'s office | | | 13 | [...] | | | | | [place] [address] | | | | | | [phone] | | | | | | | | +--------+---------+ + + + | 04/30/ | Office | Sleep Medicine | Jacky Calderon PA | | | 2019 | Visit | | [address] | | | | | | [place] | | | | | | [phone] | | | | | | | [...] FUNCTION TESTING | | 9:41 AM | ([facility]) Primary | | | ORDERS | | [...]
--- OUTSIDE RECORDS SUMMARY | ~2020-03-24 | XMS | Encounter Summary ---
Demographics + + + | Address | [address] | | | [place] [address] | + + + | Home Phone [...] Organization | [facility] | | | and [place] | + + + | Address | Unknown | + + + | Phone | Unavailable | + + + Support + + + + + | Name | Relationship | Address | Phone | + + + + + | [employer] | ECON | [id number] | | | | | Unknown | | + + + + + Care Team Providers + +------+ + | Care Cloth Reeler Name | Role | Phone | + [...] + + | 09/25/ | Office | [facility] | Jacky Calderon PA | Primary central | | 2012 | Visit | SLEEP DISORDER [address] | [address] | sleep apnea (Primary | | | | [address] [place] | [place], [place] | Dx) | | | | [place] [address] | [address] | | | | | [phone] | | | +--------+---------+ + + + [...] visit was: date of polysomnography: 03/13/2013 at [facility] AHI: 64.2 O2%: n/a Machine type: Respironics BiPAP Auto with ResMed Quattro FX full face mask obtained from: [facility] pressure: 18/14 cm Nights using BiPAP: 30/30 [...] weeks, sooner prn. Thirty minutes were spent [id number], wit h the majority of time spent [...] | | | | | [facility] | | | | | | [place] [address] | | | | | | [phone] | | | | | | | | +--------+---------+ + + + | 04/30/ | Office | Sleep Medicine | Jacky Calderon PA | | | 2019 | Visit | | [address] | | | | | | [place] | | | | | | [address] | | | | | | | | +--------+---------+ + + + documented as of this encounter Visit Diagnoses + + | Diagnosis | + + | Primary central sleep apnea - Primary | + + documented in this encounter"
--- OUTSIDE RECORDS SUMMARY | ~2020-03-24 | XMS | Encounter Summary ---
Demographics + + + | Address | [address] | | | [place] [address] | + + + | Home Phone | | + + + | Preferred Language | Unknown | + + + | Marital Status | Single | + + + | Mu-Ism Affiliation | 1009 | + + + | Race | Unknown | + + + | Ethnic Group | Unknown | + + + Author + + + | Author | [facility] | | | and [place] | + + + | Organization | [facility] | | | and [place] | + + + | Address | Unknown | + + + | Phone | Unavailable | + + + Support + + + + + | Name | Relationship | Address | Phone | + + + + + | Projects Horizon | ECON | [id number] | | | | | Unknown | | + + + + + Care Team Providers + +------+ + | Care Percolator Operator Name | Role | Phone | [...] | | | | | | [place] [address] | | | | | | [phone] | | | +--------+ + + + [...] | | | | | [place] [address] | | | | | | [phone] | | | | | | | | +--------+---------+ + + + | 04/30/ | Office | Sleep Medicine | Jacky Calderon PA | | | 2019 | Visit | | [address] | | | | | | [place] | | | | | | [address] | | | | | | | | +--------+---------+ + + + documented as of this encounter Visit Diagnoses Not on filedocumented in this encounter"
--- OUTSIDE RECORDS SUMMARY | ~2020-03-24 | XMS | Encounter Summary ---
Demographics + + + | Address | [address] | | | [place] [address] | + + + | Home Phone [...] | Organization | [facility] | | | and [place] | + + + | Address | Unknown | + + + | Phone | Unavailable | + + + Support + + + + + | Name | Relationship | Address | Phone | + + + + + | Projects Horizon | ECON | [id number] | | | | | Unknown | | + + + + + Care Team Providers + +------+ + | Care Dryland Farmer Name | Role | Phone | + +------+ + | Yuni Shrestha | PCP | | + +------+ + Encounter Details +--------+ + + + + | Date | Type | Department | Care Team | Description | +--------+ + + + + | 01/01/ | Abstract | [facility] [place] | Fatou, | | | 2016 | | PULMONARY [address] | Vera Farrar MD | | | | | [place], | | | | | | [place] [address] | | | | | | [phone] | | | +--------+ + + + [...] | | | | | [place] [address] | | | | | | [phone] | | | | | | | | +--------+---------+ + + + | 04/30/ | Office | Sleep Medicine | Jacky Calderon PA | | | 2020 | Visit | | [address] | | | | | | [place] | | | | | | [address] | | | | | | | [...] ST. | [address] | [place] | [phone] | | [facility] | | [address] | | | - LABORATORY | | | | + + + + + documented in this encounter Visit Diagnoses Not on filedocumented in this encounter"
--- OUTSIDE RECORDS SUMMARY | ~2020-03-24 | XMS | Encounter Summary ---
Demographics + + + | Address | [address] | | | [place] [address] | + + + | Home Phone [...] + + + | Author | [facility] | | | and [place] | + + + | Organization | [facility] | | | and [place] | + + + | Address | Unknown | + + + | Phone | Unavailable | + + + Support + + + + + | Name | Relationship | Address | Phone | + + + + + | Projects Horizon | ECON | [id number] | | | | | Unknown | | + + + + + Care Team Providers + +------+ + | Care Child & Adolescent Psychiatrist Name | Role | Phone | + [...] | | | CENTER [address] | [facility] | | | | | [address] [place], [place] | [place] [address] | | | | | [address] | [phone] | | | | | [phone] | | | +--------+ + + + [...] | | | | | [place] [address] | | | | | | [phone] | | | | | | | | +--------+---------+ + + + | 04/30/ | Office | Sleep Medicine | Jacky Calderon PA | | | 2020 | Visit | | [address] | | | | | | [place] | | | | | | [phone] | | | | | | | | +--------+---------+ + + + documented as of this encounter Visit Diagnoses Not on filedocumented in this encounter"
--- OUTSIDE RECORDS SUMMARY | ~2020-03-24 | XMS | Encounter Summary ---
Demographics + + + | Address | [address] | | | [place] [address] | + + + | Home Phone [...] Organization | [facility] | | | and [place] | + + + | Address | Unknown | + + + | Phone | Unavailable | + + + Support + + + + + | Name | Relationship | Address | Phone | + + + + + | Projects Horizon | ECON | [id number] | | | | | Unknown | | + + + + + Care Team Providers + +------+ + | Care Mill Roll Rewinder Name | Role | Phone | + +------+ + PCP | Unavailable | + +------+ + Encounter Details +--------+ + + + + | Date | Type | Department | Care Team | Description | +--------+ + + + + | 12/18/ | Hospital | [facility] | Shady Mcdonald | | | 2008 | Encounter | HOSPITAL XRAY [address] | MD [address] | | | | | [address] | [place], [place] | | | | | [place] | [address] | | | | | [address] | [phone] | | | | | [phone] | | | +--------+ + + + [...] | | | | | [place] [address] | | | | | | [phone] | | | | | | | | +--------+---------+ + + + | 04/30/ | Office | Sleep Medicine | Jacky Calderon PA | | | 2020 | Visit | | [address] | | | | | | [place] | | | | | | [address] | | | | | | | | +--------+---------+ + + + documented as of this encounter Visit Diagnoses Not on filedocumented in this encounter"
--- OUTSIDE RECORDS SUMMARY | ~2020-03-24 | XMS | Encounter Summary ---
Demographics + + + | Address | [address] | | | [place] [address] | + + + | Home Phone [...] Organization | [facility] | | | and [place] | + + + | Address | Unknown | + + + | Phone | Unavailable | + + + Support + + + + + | Name | Relationship | Address | Phone | + + + + + | Projects Horizon | ECON | [id number] | | | | | Unknown | | + + + + + Care Team Providers + +------+ + | Care Math Teacher Name | Role | Phone | + +------+ + | Yuni Shrestha | PCP | | + +------+ + Encounter Details +--------+ + + + + | Date | Type | Department | Care Team | Description | +--------+ + + + + | 03/04/ | Orders Only | [facility] [place] | [place], | Primary pulmonary | | 2016 | | PULMONARY [address] | Vera Farrar MD | hypertension (HCC); | | | | [place], | | High risk medication | | | | [place] [address] | | use | | | | [phone] | | | +--------+ + + + [...] | | | | | [place] [address] | | | | | | [phone] | | | | | | | | +--------+---------+ + + + | 04/30/ | Office | Sleep Medicine | Jacky Calderon PA | | | 2019 | Visit | | [address] | | | | | | [place] | | | | | | [address] | | | | | | | | +--------+---------+ + + + documented as of this encounter Visit Diagnoses + + | Diagnosis | + + | Primary pulmonary hypertension (HCC) Primary pulmonary hypertension | + + | High risk medication use Encounter for long-term (current) use of other medications | + + documented in this encounter"
--- OUTSIDE RECORDS SUMMARY | ~2020-03-24 | XMS | Encounter Summary ---
Demographics + + + | Address | [address] | | | [place] [address] | + + + | Home Phone [...] Organization | [facility] | | | and [place] | + + + | Address | Unknown | + + + | Phone | Unavailable | + + + Support + + + + + | Name | Relationship | Address | Phone | + + + + + | Projects Horizon | ECON | [id number] | | | | | Unknown | | + + + + + Care Team Providers + +------+ + | Care Thread Clipper Name | Role | Phone | + +------+ + | Gela Trimble NP | PCP | | + +------+ + Reason for Visit + + + | Reason | Comments | + + + | Appointment | | + + + Encounter Details +--------+ + + + + | Date | Type | Department | Care Team | Description | +--------+ + + + + | 05/07/ | Telephone | [facility] [place] | [place], | Appointment | | 2012 | | PULMONARY [address] | Vera Farrar MD | | | | | [place], | | | | | | [place] [address] | | | | | | [phone] | | | +--------+ + + + [...] | | | | | [place] [address] | | | | | | [phone] | | | | | | | | +--------+---------+ + + + | 04/30/ | Office | Sleep Medicine | Jacky Calderon PA | | | 2019 | Visit | | [address] | | | | | | [place] | | | | | | [address] | | | | | | | | +--------+---------+ + + + documented as of this encounter Visit Diagnoses Not on filedocumented in this encounter"
--- OUTSIDE RECORDS SUMMARY | ~2020-03-24 | XMS | Encounter Summary ---
Demographics + + + | Address | [address] | | | [place] [address] | + + + | Home Phone | | + + + | Preferred Language | Unknown | + + + | Marital Status | Single | + + + | Yarsani Affiliation | NRP | + + + | Race | White | + + + | Ethnic Group | Not or | + + + Author + + + | Author | [facility] | + + + | Organization | [facility] | + + + | Address | Unknown | + + + | Phone | Unavailable | + + + Support + + +---------+ + | Name | Relationship | Address | Phone | + + +---------+ + | Lidia Thibodeaux | ECON | Unknown | | + + +---------+ + Care Team Providers + +------+ + | Care Stock Transfer Clerk Name | Role | Phone | [...] | | [place], [place] | [address] | | | | | [address] | [phone] | | | | | [phone] | | | +--------+ + + + [...]
--- OUTSIDE RECORDS SUMMARY | ~2020-03-24 | XMS | Encounter Summary ---
Demographics + + + | Address | [address] | | | [place] [address] | + + + | Home Phone [...] + | Organization | [facility] | | | and [place] | + + + | Address | Unknown | + + + | Phone | Unavailable | + + + Support + + + + + | Name | Relationship | Address | Phone | + + + + + | Projects Horizon | ECON | [id number] | | | | | Unknown | | + + + + + Care Team Providers + +------+ + | Care Supervisor Labor Gang Name | Role | Phone | + [...] | | [address] [place] | [place], [place] | | | | | [place] | [address] | | | | | [address] | [phone] | | | | | [phone] | | | +--------+ + + + [...] | | | | | [place] [address] | | | | | | [phone] | | | | | | | | +--------+---------+ + + + | 04/30/ | Office | Sleep Medicine | Jacky Calderon PA | | | 2020 | Visit | | [address] | | | | | | [place] | | | | | | [address] | | | | | | | | +--------+---------+ + + + documented as of this encounter Visit Diagnoses Not on filedocumented in this encounter"
--- OUTSIDE RECORDS SUMMARY | ~2020-03-24 | XMS | Encounter Summary ---
Demographics + + + | Address | [address] | | | [place] [address] | + + + | Home Phone | | + + + | Preferred Language | Unknown | + + + | Marital Status | Single | + + + | Sikh Affiliation | NRP | + + + | Race | White | + + + | Ethnic Group | Not or | + + + Author + + + | Author | [facility] | + + + | Organization | [facility] | + + + | Address | Unknown | + + + | Phone | Unavailable | + + + Support + + +---------+ + | Name | Relationship | Address | Phone | + + +---------+ + | Lidia Thibodeaux | ECON | Unknown | | + + +---------+ + Care Team Providers + +------+ + | Care Steel Wheel Engraver Name | Role | Phone | + [...] | | | | | n | [facility] | | | | | | [place] [address] | | | | | | [phone] | | | +--------+ + + + [...]
--- OUTSIDE RECORDS SUMMARY | ~2020-03-24 | XMS | Clinical Summary ---
Demographics + + + | Address | [address] | | | [place] [address] | + + + | Home Phone | | + + + | Preferred Language | Unknown | + + + | Marital Status | Single | + + + | Congregational Affiliation | Unknown | + + + | Race | Unknown | + + + | Ethnic Group | Unknown | + + + Author + + + | Author | [facility] (Historical as of | | | 06-16-19) | + + + | Organization | [facility] (Historical as of | | | 06-16-19) [...] [place] | | | | | [address] | | + + + + + | Lidia Thibodeaux | ECON | Unknown | | + + + + + Care Team Providers + +------+ + | Care Forestry Fire Aide Name | Role | Phone | + [...] +------+-------+ + | MEDICAID | [place] | [id number] | | | [address] | | | N | | | | [place] | | | [place] | | | | [address] | | | DRYING OVEN ATTENDANT | | | | | + +--------+ [...] | | karlos/Kalpesh | | 1965 | [phone] | [place] [address] | | | jammie | | | [address]: | | | | | | | | | | | | | | [phone] | | | | | | [address]85 | | + +--------+ +--------+ + +"
--- OUTSIDE RECORDS SUMMARY | ~2020-03-24 | XMS | Encounter Summary ---
Demographics + + + | Address | [address] | | | [place] [address] | + + + | Home Phone [...] Organization | [facility] | | | and [place] | + + + | Address | Unknown | + + + | Phone | Unavailable | + + + Support + + + + + | Name | Relationship | Address | Phone | + + + + + | Projects Horizon | ECON | [id number] | | | | | Unknown | | + + + + + Care Team Providers + +------+ + | Care Ic Design Engineer Name | Role | Phone [...] | Primary | [place], | [address] | | | | | pulmonary | Vera B, | [place], | | | | | hypertension | MD [address] | [place] | | | | | ([facility]) | [address] | [address] | | | | | Procedures | [place], | Phone: | | | | | ECHO | [place] [address] | [phone] | | | | | Complete [place] | | Fax: | | | | | ECHO HEART | | [phone] | | | | | [place] | | | | | | | [address] | | | | | | | [place] | | | | | | | [...] | Primary | [place], | [address] | | | | | pulmonary | Vera B, | [place], | | | | | hypertension | MD [address] | [place] | | | | | ([facility]) | [address] | [address] | | | | | Procedures | [place], | Phone: | | | | | ECHO | [place] [address] | [phone] | | | | | Complete [place] | | Fax: | | | | | ECHO HEART | | [phone] | | | | | [place]AC[place] | | | | | | | [address] | | | | | | | [place] | | | | | | | [...] + + | 03/26/ | Hospital | [facility] | Sah[place], | Primary pulmonary | | 2014 | Encounter | [facility] ECHO [address] | Vera Frarar MD | hypertension | | | | [place] | [place]iel [place], | | | | | [place] [address] | Technologist | | | | | [phone] | | | +--------+ + + + [...] + + + +---------+ + + | [place] [facility] | by Does not apply [...] + + + +---------+ + + | [place]-[facility] Fatty | Take by mouth. | | [...] | | | | | [place] [address] | | | | | | [phone] | | | | | | | | +--------+---------+ + + + | 04/30/ | Office | Sleep Medicine | Jacky Calderon PA | | | 2019 | Visit | | [address] | | | | | | [place] | | | | | | [address] | | | | | | | [...] Performed At | + + + | [facility] ECHOCARDIOGRAM REPORT | OLIVA | | STUDY DATE: 03/26/2015 PATIENT NAME: Margarita Rowley : | [facility] | | 1965 PCP: Physician Elisabeth CLINICAL [...] | 1.2 E/E Ratio: 7.0 Signed by: eDrick Strong, | | | [facility] 03/26/2015 13:52 Cytogenetic Technician: [place], | | | RDCS, RDMS, RVT | | + + + + + + + + | Performing | Address | City/State/Zipcode | Phone Number | | Organization | | | | + + + + + | [facility] | [address] | [place], [place] | [phone] | | [facility] | | [address] | | | - IMAGING | | [...]
--- OUTSIDE RECORDS SUMMARY | ~2020-03-24 | XMS | Encounter Summary ---
Demographics + + + | Address | [address] | | | [place] [address] | + + + | Home Phone [...] Organization | [facility] | | | and [place]am[place] | + + + | Address | Unknown | + + + | Phone | Unavailable | + + + Support + + + + + | Name | Relationship | Address | Phone | + + + + + | Projects Horizon | ECON | [id number] | | | | | Unknown | | + + + + + Care Team Providers + +------+ + | Care Senior Sous Chef Name | Role | Phone | + [...] in to BIPAP) | | | | [place], | | | | | | [place] [address] | | | | | | [phone] | | | +--------+ + + + [...] | | | | | [place] [address] | | | | | | [phone] | | | | | | | | +--------+---------+ + + + | 04/30/ | Office | Sleep Medicine | Jacky Calderon PA | | | 2019 | Visit | | [address] | | | | | | [place] | | | | | | [address] | | | | | | | | +--------+---------+ + + + documented as of this encounter Visit Diagnoses Not on filedocumented in this encounter"
--- OUTSIDE RECORDS SUMMARY | ~2020-03-24 | XMS | Encounter Summary ---
Demographics + + + | Address | [address] | | | [place] [address] | + + + | Home Phone [...] Organization | [facility] | | | and [place]am[place] | + + + | Address | Unknown | + + + | Phone | Unavailable | + + + Support + + + + + | Name | Relationship | Address | Phone | + + + + + | Projects Horizon | ECON | [id number] | | | | | Unknown | | + + + + + Care Team Providers + +------+ + | Care Television Installer Helper Name | Role | Phone | [...] [place], | | | | | | [place] [address] | | | | | | [phone] | | | +--------+ + + + [...] | | | | | [place] [address] | | | | | | [phone] | | | | | | | | +--------+---------+ + + + | 04/30/ | Office | Sleep Medicine | Jacky Calderon PA | | | 2019 | Visit | | [address] | | | | | | [place] | | | | | | [address] | | | | | | | | +--------+---------+ + + + documented as of this encounter Visit Diagnoses Not on filedocumented in this encounter"
--- OUTSIDE RECORDS SUMMARY | ~2020-03-24 | XMS | Encounter Summary ---
Demographics + + + | Address | [address] | | | [place] [address] | + + + | Home Phone [...] Author | [facility] | | | and [place] | + + + | Organization | [facility] | | | and [place] | + + + | Address | Unknown | + + + | Phone | Unavailable | + + + Support + + + + + | Name | Relationship | Address | Phone | + + + + + | Projects Horizon | ECON | [id number] | | | | | Unknown | | + + + + + Care Team Providers + +------+ + | Care Area Field Worker Name | Role | Phone | [...] | | | | | | [place] [address] | | | | | | [phone] | | | +--------+ + + + [...] | | | | | [place] [address] | | | | | | [phone] | | | | | | | | +--------+---------+ + + + | 04/30/ | Office | Sleep Medicine | Jacky Calderon PA | | | 2020 | Visit | | [address] | | | | | | [place] | | | | | | [address] | | | | | | | | +--------+---------+ + + + documented as of this encounter Visit Diagnoses Not on filedocumented in this encounter"
--- OUTSIDE RECORDS SUMMARY | ~2020-03-24 | XMS | Encounter Summary ---
Demographics + + + | Address | [address] | | | [place] [address] | + + + | Home Phone | | + + + | Preferred Language | Unknown | + + + | Marital Status | Single | + + + | Zoroastrian Affiliation | 1009 | + + + | Race | Unknown | + + + | Ethnic Group | Unknown | + + + Author + + + | Author | [facility] | | | and [place] | + + + | Organization | [facility] | | | and [place] | + + + | Address | Unknown | + + + | Phone | Unavailable | + + + Support + + + + + | Name | Relationship | Address | Phone | + + + + + | Projects Horizon | ECON | [id number] | | | | | Unknown | | + + + + + Care Team Providers + +------+ + | Care Die Machine Operator Name | Role | Phone [...] | apnea (adult) | | | | [place], | | (pediatric) (Primary | | | | [place] [address] | | Dx) | | | | [phone] | | | +--------+ + + + [...] | | | | | [place] [address] | | | | | | [phone] | | | | | | | | +--------+---------+ + + + | 04/30/ | Office | Sleep Medicine | Jacky Calderon PA | | | 2020 | Visit | | [address] | | | | | | [place] | | | | | | [address] | | | | | | | | +--------+---------+ + + + documented as of this encounter Visit Diagnoses + + | Diagnosis | + + | Obstructive sleep apnea (adult) (pediatric) - Primary | + + documented in this encounter"
--- OUTSIDE RECORDS SUMMARY | ~2020-03-24 | XMS | Encounter Summary ---
Demographics + + + | Address | [address] | | | [place] [address] | + + + | Home Phone | | + + + | Preferred Language | Unknown | + + + | Marital Status | Single | + + + | Yazidism Affiliation | NRP | + + + [...] + +------+ + | Care Director Of Informatics Name | Role | Phone | + +------+ + | Gela Trimble CHAIRMAN EMERITUS | PCP | | + +------+ + [...] | pulmonary | Nadja Solomon | [place], | | | | | heart | [place], [place] | [place] | | | | | diseases | [address] | [address] | | | | | Procedures | Phone: | Phone: | | | | | CONSULT TO | [phone] | [phone] | | | | | PULMONARY | Fax: | Fax: | | | | | | [phone] | [phone] | +--------+--------+ + + + + Diagnostic [...] | | | | | | | [place], [place] | | | | | | | [address] | | | | | | | Phone: | | | | | | | [phone] | | | | | | | Fax: | | | | | | | [phone] | | +--------+--------+ + + + + [...] | | | | Hansel Hein, | [facility] [address] | | | | | TRANSTHORACI | MD [address] | | | | | C | [address]ano | [address] | | | | | [address] | [address] | [place] | | | | | AM, ADULT | [place], [place] | [facility] | | | | | | [address] | floor | | | | | | | [place], [place] | | | | | | | [address] | | | | | | | Phone: | | | | | | | [phone] | +--------+--------+ + + + + Reason [...] | | | | | | | [address] [facility] | | | | | | | [address] | | | | | | | Mushtaq Mailcode: | | | | | | | 14B [facility] | | | | | | | Hospital | | | | | | | [place], [place] | | | | | | | [address] | | | | | | | Phone: | | | | | | | [phone] | | | | | | | Fax: | | | | | | | [phone] | +--------+--------+ + + + + Encounter Details +--------+ + + + + | Date | Type | Department | Care Team | Description | +--------+ + + + + | 05/02/ | Hospital | [facility] 14B MEDICINE | Lenora Lawson MD | | | 2012 - | Encounter | [address] | [address] | | | | | Nadja Solomon Mailcode: | Nadja Solomon [place], | | | 05/12/ | | [facility] [facility] | [place] [address] | | | 2012 | | [place], [place] | [phone] | | | | | [address] | | | | | | [phone] | Agus Jiang, | | | | | | [address] | | | | | | [address] | | | | | | [place], [place] | | | | | | [address] | | | | | | [phone] | | | | | | | [...] interventricular septum. RVSP 75 +. Transferred to [facility] from OSH ED on after presenting [...] to 100/80s. Initial vitals on arrival at [facility] were T 36.6 BP 110/69 P [...] ensure proper diuresis -pt will f/u with nnp- Avila Langley in [place] #. Pulmonary hypertension, idiopathic- diagnosis confirmed via [...] this admission. Not HD significant. TSH wnl. CHAMP screen neg. Further w/u not felt indicated. [...] mg by mouth once daily in the [facility] katarzyna. cetirizine 10 mg Oral tablet Take [...] Apply 1 Patch to skin once daily. Temple-3 Fatty Acids-Vitamin E (FISH OIL) 1,000 mg [...] SNF physician to follow, Dr. Ansari from [facility] -spoke to PCP and spoke over hospital course and f/u plans -will have pulm f.u here at [facility] as no pulm htn specialist in [place], to be arranged -asked PCP, who had been managing seizure d/o to arrange for neurology f/u in [place] (a greed) -pt will f/u with nnp- Avila Langley in [place] Outstanding labs/studies: none Cristine Freeman MD Internal Medicine Resident Pager [phone] Jessica Lopez MD Anesthesiology, PGY-1 Pager [phone] documented in t his encounter Medications at [...] + + + +---------+ + + | Temple-3 Fatty | Take 1 Cap by mouth [...] documented as of this encounter Progress Notes Taty Bucio MD - 05/12/2013 11:00 AM PDTInternal [...] 4. Dispo - d/c to SNF near [place] for rehab. Taty Bucio MD, MPH water taxi operator [facility] DEPARTMENT: [id number]- [facility] Place of Service:- Inpatient Date of Service: 05/12/2013 CSN: [id number] Suggested Modifiers:GC- Resident present for procedure Suggested CPT: 59298- Discharge < 30 min Too Lechuga MD [...] rehab -plan for transport tomorrow 11am to [facility] -spoke with Dr. Ansari (family med at [facility]), physician to take care of p t at SNF -outpt meds: lasix 80mg PO BID, 40mEq KCl tab daily Agus Jiang MD saw and evaluated this patient and aggress with my assessment and plan as documented above. Jessica Lopez MD Anesthesiology, PGY-1 Pager [phone] Agus Sandoval MD - 05/11/2013 4:10 PM [...] set up for tomorrow. AGUS JIANG MD [employer] linux administrator Division of Hospital Medicine Department of Internal Medicine [facility] DEPARTMENT: Hosp- [id number] Place of Service: - Date of Service: 05/11/2013 CSN: [id number] Modifiers:GC Resident Involved: Yes Suggested CPT: 93290 Subsequent Visit Exp Prob Foc/Mod Complexity 25 [...] Agus Farrar MD - 05/10/2013 11:41 AM [facility] 4 GENERAL MEDICINE ATTENDING PROGRESS NOTE ADMIT DATE: 05/02/2013 8:40 PM TODAY'S DATE: 05/10/2013 (HOSPITAL DAY 8) I personally interviewed the patient, performed the beverly elements of the physical examinatio n, reviewed new lab data in EPIC, looked at any new radiology images and have developed an u pdated assessment and plan together with the 4 residents, Dr. Lopez/Lydia. Please see [facility] housestaff notes for full details. I agree with their note with the following additions/ex ceptions. Assessment and Plans Patient Active Hospital Problem List: 1) *Right heart failure due to pulmonary hypertension: Still unclear cause of PulmHTN. Cou ld still be related to GLORIA, will review results of initial sleep study showing severe AHI [facility] pulmonology. RHC today. IF wedge pressure is [...] disorder 11) Developmental delay AGUS JIANG MD [employer] linux administrator Division of Hospital Medicine Department of Internal Medicine [facility] DEPARTMENT: Hosp- [id number] Place of Service: - [id number] Date of Service: 05/10/2013 CSN: [id number] Modifiers:GC Resident Involved: Yes Suggested CPT: 35948 Subsequent Visit Detailed/High complexity 35 min azo, [...] above. Jessica Lopez MD Anesthesiology, PGY-1 Pager [phone] lements, Agus Farrar MD - 05/09/2013 3:08 [...] disorder 11) Developmental delay AGUS JIANG MD [employer] linux administrator Division of Hospital Medicine Department of Internal Medicine [facility] DEPARTMENT: Hosp- [id number] Place of Service: - Date of Service: 05/09/2013 CSN: [id number] Modifiers:GC Resident Involved: Yes Suggested CPT: 59986 Subsequent Visit Exp Prob Foc/Mod Complexity 25 [...] pending better optimization of fluid status, hopeful [facility] Code Status:} Full Code -:Interval Hx:- none [...] and plan. Cristine Freeman Internal Medicine Resident [id number] lements, Johan Farrar MD - 05/08/2013 2:00 [...] the 4 residents, Dr. Lopez/Lydia. Please see [facility] housestaff notes for full details. I [...] disorder 11) Developmental delay AGUS JIANG MD [employer] linux administrator Division of Hospital Medicine Department of Internal Medicine [facility] DEPARTMENT: Hosp- [id number] Place of Service: - [id number] Date of Service: 05/08/2013 CSN: [id number] Modifiers:GC Resident Involved: Yes Suggested CPT: 34084 Subsequent Visit Exp Prob Foc/Mod Complexity 25 [...] above. Jessica Lopez MD Anesthesiology, PGY-1 Pager [phone] lements, Agus Farrar MD - 05/07/2013 4:36 [...] disorder 11) Developmental delay AGUS JIANG MD [employer] linux administrator Division of [facility] Medicine Department of Internal Medicine [facility] DEPARTMENT: Hosp- [id number] Place of Service: IP - Date of Service: 05/07/2013 CSN: [id number] Modifiers:GC Resident Involved: Yes Suggested CPT: 42320 Subsequent Visit Exp Prob Foc/Mod Complexity 25 [...] above. Jessica Lopez MD Anesthesiology, PGY-1 Pager [phone] lechano, Agus Farrar MD - 05/06/2013 7:47 [...] the 4 residents, [address]. Lopez/Lydia. Please see [facility] housestaff notes for full details. I agree with their note with the following additions/ex ceptions. History: Exam: BP 102/55 | Pulse 72 | Temp 36.6 C (97.9 F) | RR 16 | Ht 1.499 m (4' 11") | Wt 105.7 kg (233 lb 0.4 oz) | SpO2 95% | BMI 47.04 kg/(m^2) No distress JVP difficult to assess [place] edema still present in the legs. Assessment [...] disorder 11) Developmental delay AGUS JIANG MD [employer] linux administrator Division of Hospital Medicine Department of Internal Medicine [facility] DEPARTMENT: Hosp- [id number] Place of Service: Date of Service: 05/06/2013 CSN: [id number] Modifiers:GC Resident Involved: Yes Suggested CPT: 35880 Subsequent Visit Exp Prob Foc/Mod Complexity 25 [...] above. Jessica Lopez MD Anesthesiology, PGY-1 Pager [phone] Agus Sandoval MD - 05/05/2013 2:15 PM [facility] 4 GENERAL MEDICINE ATTENDING PROGRESS NOTE ADMIT [...] disorder 11) Developmental delay AGUS JIANG MD [employer] linux administrator Division of Hospital Medicine Department of Internal Medicine [facility] DEPARTMENT: Hosp- [id number] Place of Service: IP - Date of Service: 05/05/2013 CSN: [id number] Modifiers:GC Resident Involved: Yes Suggested CPT: 88799 Subsequent Visit Exp Prob Foc/Mod Complexity 25 [...] above. Jessica Lopez MD Anesthesiology, PGY-1 Pager [phone] Jay Jay Howell MD - 05/04/2013 5:22 [...] Jay Grimaldo MD Internal Medicine, PGY-3 Pager [phone] Deion Lomeli - 2012 4:52 PM PDTTransthoracic [...] 4 residents, Dr. Lopez/Dillan. Please see the [facility] notes for full details. I agree with [...] disorder 11) Developmental delay AGUS JIANG MD [employer] linux administrator Division of Hospital Medicine Department of Internal Medicine [facility] DEPARTMENT: Hosp- [id number] Place of Service: IP - [id number] Date of Service: 05/04/2013 CSN: [id number] Modifiers:GC Resident Involved: Yes Suggested CPT: 08878 Subsequent Visit Exp Prob Foc/Mod Complexity 25 [...] Hamlin MD Department of Neurology PGY-1 Pager [phone] PGY-4 Addendum I can follow as her [...] she knew where she was, she said "[facility]." She thought it to be 2008. A/P: [...] Jay Grimaldo MD Internal Medicine, PGY-3 Pager [phone] viva Cervantes - 2012 2:19 PM PDT INPATIENT PROGRESS NOTE Hospital Day:2 Author: AVIVA CERVANTES Attending Physician: Agus Jiang MD 24-hour events -- Episode of seizure with full body shaking 20s in duration per nursing report. [facility], found to be post-ictal (AxO [...] subsequently started on phenytoin. Last seizure per cardiac monitor was 03/26 but cardiac monitor was unaware that she had a seizure [...] who agrees with my assessment and plan. Avvia Cervantes MS4, Pager [phone] azo, Too Bruno MD - 05/03/2013 1:52 [...] to knee B/L, +1 edema up to retirement c fdc b/l Psychiatric: appropriate mood and affect, cooperative [...] above. Jessica Lopez MD Anesthesiology, PGY-1 Pager [phone] documented in this enco unter Plan of [...] | + + + + + | [facility] | [address] | [place] [address] | | | SERVICES, CORE | NADJA [...] | + + + + + | [facility] | [address] | [place] [address] | | | JULIETA, ELMER | NADJA [...] | | | LABORATORY | | | SUDANESE | | | SERVICES, | | | [...] ANION GAP | 10 | mmol/L | [facility] | | | | | | LABORATORY [...] | + + + + + | [facility] | [address] | [place] [address] | | | SERVICES, [place] | NADJA [...] [facility] | [address] | [place] [address] | | | SERVICES, CORE | PARK [...] [facility] | [address] | [place] [address] | | | SERVICES, CORE | PARK [...] | + + + + + | [facility] | [address] | [place] [address] | | | SERVICES, CORE | PARK [...] | + + + + + | [facility] | [address] | [place] [address] | | | SERVICES, [place] | NADJA [...] | | | LABORATORY | | | SUDANESE | | | SERVICES, | | | [...] [facility] | [address] | [place] [address] | | | SERVICES, CORE | PARK [...] | + + + + + | [facility] | [address] | [place] [address] | | | SERVICES, CORE | [address] | | | + + + + + MAGNESIUM, PLASMA (05/10/2013 7:36 AM PDT) + +-------+ + + + | Component | Value | Ref Range | Performed | Pathologist | | | | | At | Signature | + +-------+ + + + | MAGNESIUM,P | 1.9 | 1.8 - 2.5 mg/dL | [facility] | | | LASMA | | [...] | + + + + + | [facility] | [address] | [place] [address] | | | SERVICES, CORE | PARK [...] | | | LABORATORY | | | SUDANESE | | | SERVICES, | | | [...] ANION GAP | 8 | mmol/L | [facility] | | | | | | [...] | + + + + + | [facility] | [address] | [place] [address] | | | SERVICES, CORE | NADJA [...] by | | | | | | [address],[address] | | | | | | Lázaro Carter, [facility] | | | | | | [id number] | | | | | | [phone].[email or web address]. | | | | | | Zane [...] [facility] | [address] | [place], [place] | | | [facility] | | [address] | | + + + + + [...] + | [facility] - | [address] | [place] [address] | | | [place] | | | [...] [facility] | [address] | [place] [address] | | | SERVICES, SPECIAL | PARK [...] [facility] | [address] | [place] [address] | | | SERVICES, CORE | PARK [...] [facility] | [address] | [place] [address] | | | SERVICES, CORE | PARK [...] | | | LABORATORY | | | SUDANESE | | | SERVICES, | | | [...] the MDRD equation recommended by the | [facility] | | National Kidney Disease Education [...] | + + + + + | [facility] | [address] | [place] [address] | | | SERVICES, CORE | PARK [...] [facility] | [address] | [place] [address] | | | SERVICES, CORE | NADJA [...] | | | LABORATORY | | | SUDANESE | | | SERVICES, | | | [...] Information: <60 mL/min/1.73 sq m | SERVICES, [facility] | | Chronic Kidney Disease <15 mL/min/1.73 [...] | + + + + + | [facility] | [address] | [place] [address] | | | [facility], [facility] | [address] | | | + [...] | + + + + + | [facility] | [address] | [place] [address] | | | SERVICES, CORE | NADJA [...] + + + + + + | [id number]% | 0.75 | 2.52 L/sec | [facility] | | | PRE | | | SPECIAL | | | | | | DIAGNOSTICS | | | | | | - | | | | | | PULMONARY | | | | | | FUNCTION | | + + + + + + | [id number]% | 30 | % | [facility] | [...] [facility] | | | INTERPRETAT | ID# [id number] | | SPECIAL | | | ION [...] B | | | | | | Award Machine Operator: | | | | | | Katty [...] | | | | | | Order# [id number] | | | | | | | [...] | | | | | | 68 [id number]% | | | | | | L/sec 2.52 | | | | | | 0.75 | | | | | | [id number] L/sec | | | | | | | | | | | | 0.75PEF | | | | | | L/sec 6.04 | | | | | | 2.67 [id number]% | | | | | | L/sec [...] ID: | | | | | | [id number] | | | | | | Date: [...] [facility] | [address] | [place], [place] | | | DIAGNOSTICS - | [address] | [phone] | | | PULMONARY FUNCTION | | [...] LABORATORY | [address] | [place] [address] | | | SERVICES, CORE | PARK [...] [facility] | [address] | [place] [address] | | | SERVICES, CORE | PARK [...] | | | LABORATORY | | | SUDANESE | | | SERVICES, | | | [...] the MDRD equation recommended by the | [facility] | | National Kidney Disease Education [...] | + + + + + | [facility] | [address] | [place] [address] | | | SERVICES, CORE | PARK [...] [facility] | [address] | [place] [address] | | | SERVICES, CORE | PARK [...] [facility] | [address] | [place] [address] | | | SERVICES, CORE | PARK [...] | + + + + + | [facility] | [address] | [place] [address] | | | SERVICES, ELMER | NADJA [...] | | | LABORATORY | | | SUDANESE | | | SERVICES, | | | [...] | + + + + + | [facility] | [address] | [place] [address] | | | SERVICES, CORE | PARK [...] | + + + + + | [facility] | [address] | [place] [address] | | | JULIETA, CORE | NADJA [...] [facility] | [address] | [place] [address] | | | SERVICES, CORE | [address] | | | + + + [...] [facility] | [address] | [place] [address] | | | SERVICES, CORE | PARK [...] | + + + + + | [facility] | [address] | [place] [address] | | | SERVICES, CORE | NADJA [...] | | | LABORATORY | | | SUDANESE | | | SERVICES, | | | [...] | + + + + + | [facility] | [address] | [place] [address] | | | SERVICES, CORE | NADJA [...] (H) | 60 - 99 mg/dL | [facility] - | | | GLUCOSE, | [...] [facility] | [address] | [place], [place] | | | ALONSO CASTILLO OF CARE | [address] | [address] | | | TESTS | | | [...] [facility] | [address] | [place] [address] | | | SERVICES, CORE | PARK [...] [facility] | [address] | [place] [address] | | | SERVICES, CORE | PARK [...] | + + + + + | [facility] | [address] | [place] [address] | | | SERVICES, CORE | PARK [...] | + + + + + | [facility] | [address] | [place] [address] | | | SERVICES, CORE | NADJA [...] | | | LABORATORY | | | SUDANESE | | | SERVICES, | | | [...] | + + + + + | [facility] | [address] | [place] [address] | | | SERVICES, CORE | [address] | | | + + + + + EEG ROUTINE (05/04/2013) + + + | Narrative | Performed At | + + + | Patient Name: Keo Rowley Date of : 1965 Medical | [facility] - | | Record Number: [id number] Date of Test: 05/04/2013 Place of Service: | JJ MEGARGEL, | | [place] [phone] [facility] Department: EEG [facility] - [phone] | POINT OF CARE | | ROUTINE [...] Modifier: GC - Resident Present Suggested CPT: 96287 - EEG Routine | | | Awake Only Suggested Dx: 780.39 - Convulsions | | + + + + + + + + | Performing | Address | City/State/Zipcode | Phone Number | | Organization | | | | + + + + + | [facility] | [address] | [place], [place] | | | ANNA MCGEHEE OF [facility] | [address] | [address] | | | TESTS | | | [...] | + + + + + | [facility] | [address] | [place] [address] | | | SERVICES, CORE | PARK [...] | | | LABORATORY | | | SUDANESE | | | SERVICES, | | | [...] | + + + + + | [facility] | [address] | [place] [address] | | | ELMER RENDON | [address] [...] | [facility] | | Test performed by: [facility] [address] | REFERENCE LAB | | [place] [address] | | + + + + + [...] | + + + + + | [facility] | [address] | [place] [address] | | | SERVICES, CORE | NADJA [...] | + + + + + | [facility] - | [address] | [place] [address] | | | [facility] | | | | + + + [...] [facility] | [address] | [place] [address] | | | SERVICES, CORE | PARK [...] [facility] | [address] | [place] [address] | | | SERVICES, CORE | PARK [...] | + + + + + | [facility] | [address] | [place] [address] | | | EL[place] RENDON | NADJA [...] | + + + + + | [facility] | [address] | [place] [address] | | | SERVICES, CORE | [address] [...] | | | LABORATORY | | | SUDANESE | | | SERVICES, | | | [...] | + + + + + | [facility] | [address] | [place] [address] | | | SERVICES, CORE | PARK [...] + | [facility] - | [address] | [place] [address] | | | [place] | | | [...] | + + + + + | [facility] - | [address] | [place] [address] | | | [place] | | | [...] view image for the detailed interpretation from [facility] results. | CARDIOLOGY | + + + + + | Procedure Note | + + | Interface, Cardiology Results - 05/24/2013 9:44 PM PDT Please click on view image | | for the detailed interpretation from [employer] results. | + + + + + + + | Performing | Address | City/State/Zipcode | Phone Number | | Organization | | | | + + + + + | [facility] | [address] | [place], [place] | | | CARDIOLOGY | [address] | [address] | | + + + + + [...] GALVAN | | | | | | (0754) on 05/04/2013 | | | | | | 11:36:09 AM | | | | + + + + + + + + | Specimen | + + | | + + + + + | Narrative | Performed At | + + + | Please click | [facility] | | on view image for the detailed interpretation from [facility] results. | CARDIOLOGY | + + + + + | Procedure Note | + + | Interface, Cardiology Results - 05/04/2013 11:36 AM PDT Please click on view image | | for the detailed interpretation from [facility] results. | + + + + + + + | Performing | Address | City/State/Zipcode | Phone Number | | Organization | | | | + + + + + | [facility] | [address] | [place], [place] | | | CARDIOLOGY | [address] | [address] | | + + + + + [...] | + + + + + | [facility] | [address] | [place] [address] | | | SERVICES, ELMER | NADJA [...] | + + + + + | [facility] | [address] | [place] [address] | | | SERVICES, CORE | PARK [...] | + + + + + | [facility] | [address] | [place] [address] | | | SERVICES, CORE | PARK [...] | | | LABORATORY | | | SUDANESE | | | SERVICES, | | | [...] | + + + + + | [facility] | [address] | [place] [address] | | | SERVICES, CORE | NADJA [...] | | | | | dose on [facility] 05/03/13 at 0900, Until | | | [...] | | | | First dose on [facility] 05/03/13 at 0900, | | | | [...] | | | oral, ONCE, 1 dose, [facility] 05/10/13 | | AM PDT | | [...] | | | BEDTIME, First dose on [facility] 05/03/13 | | PM PDT | | [...]
--- OUTSIDE RECORDS SUMMARY | ~2020-03-24 | XMS | Encounter Summary ---
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
--- OUTSIDE RECORDS SUMMARY | ~2020-03-24 | XMS | Encounter Summary ---
Demographics + + + | Address | [address] | | | [place] [address] | + + + | Home Phone | | + + + | Preferred Language | Unknown | + + + | Marital Status | Single | + + + | Judaism Affiliation | 1009 | + + + | Race | Unknown | + + + | Ethnic Group | Unknown | + + + Author + + + | Author | [facility] | | | and [place]am[place] | + + + | Organization | [facility] | | | and [place]am[place] | + + + | Address | Unknown | + + + | Phone | Unavailable | + + + Support + + + + + | Name | Relationship | Address | Phone | + + + + + | Projects Horizon | ECON | [phone] | | | | | Unknown | | + + + + + Care Team Providers + +------+ + | Care Pipe Line Gauger Name | Role | Phone | + [...] | | | | ABDIRASHID BROTHERS | [place], [place] | | | | | [place] | [address] | | | | | [address] | [phone] | | | | | [phone] | | | +--------+ + + + [...] | | | | | [place] [address] | | | | | | [phone] | | | | | | | | +--------+---------+ + + + | 04/30/ | Office | Sleep Medicine | Jacky Calderon PA | | | 2020 | Visit | | [address] | | | | | | [place] | | | | | | [address] | | | | | | | | +--------+---------+ + + + documented as of this encounter Visit Diagnoses Not on filedocumented in this encounter"
--- OUTSIDE RECORDS SUMMARY | ~2020-03-24 | XMS | Encounter Summary ---
Demographics + + + | Address | [address] | | | [place] [address] | + + + | Home Phone [...] + + + | Author | [facility] | | | and [place]am[place] | + + + | Organization | [facility] | | | and [place]am[place] | + + + | Address | Unknown | + + + | Phone | Unavailable | + + + Support + + + + + | Name | Relationship | Address | Phone | + + + + + | [employer] | ECON | [phone] | | | | | Unknown | | + + + + + Care Team Providers + +------+ + | Care Corporate Associate Name | Role | Phone | [...] | Primary | Offenstein, | [address] | | | | | pulmonary | Vera B, | [place], | | | | | hypertension | MD [address] | [place] | | | | | ([facility]) | [address] | [address] | | | | | Procedures | [place], | Phone: | | | | | ECHO | [place] [address] | [phone] | | | | | Complete [place] | | Fax: | | | | | ECHO HEART | | [phone] | | | | | XTHORACIC,[place] | [...] | hypertension (HCC); | | | | [address] [place], | | [place]OR[place] (obstructive | | | | [place] [address] | | sleep apnea); COPD | | | | [phone] | | (chronic obstructive | | | [...] 1200 feet regularly. Please [facility] for urine tests. Get the printed [...] Diagnosis Date COPD (chronic obstructive pulmonary disease) ([facility]) moderate, FEV1 1.40 (59%) Pulmonary hypertension ([facility]) severe, class 1, class 2, class 3 Bipolar disorder ([facility]) PTSD (post-traumatic stress disorder) Osteoarthritis Obstructive sleep apnea AHI 64.2 Vitamin D deficiency GERD (gastroesophageal reflux disease) Hypothyroidism Seizure disorder ([facility]) Developmental delay Hypoxemia on 2L [...] Years of Education: N/A Occupational History Disabled. [employer] Social History Main Topics Smoking status: Current [...] Concern None Social History Narrative Lives at [facility]. Allergies: Allergies Allergen Reactions Erythromycin Metronidazole Penicillins [...] TABS Take 2,000 Units by mouth Daily. [place] Starch POWD by Does not apply route [...] mg onto the skin every 24 hours. [place]-3 Fatty Acids (SEA-OMEGA 30) 1200 MG CAPS [...] her caregivers to [facility] [place] [facility] to have this done. HCG, Urine, [...] to take to [facility]. She was advised to call if new pulmonary symptoms were to develop. Return to clinic in July, or sooner with concerns. CC: VIKAS Galicia, Lashae Rivera MD Portions of this report were transcribed using voice recognition software. Every effort wa s made to ensure accuracy; however, inadvertent computerized digital marketing officer errors may be pre sent. documented in [...] | | | | | [place] [address] | | | | | | [phone] | | | | | | | | +--------+---------+ + + + | 04/30/ | Office | Sleep Medicine | Jacky Calderon PA | | | 2019 | Visit | | [address] | | | | | | [place] | | | | | | [address] | | | | | | | [...]
--- OUTSIDE RECORDS SUMMARY | ~2020-03-24 | XMS | Encounter Summary ---
Demographics + + + | Address | [address] | | | [place] [address] | + + + | Home Phone [...] Organization | [facility] | | | and [place] | + + + | Address | Unknown | + + + | Phone | Unavailable | + + + Support + + + + + | Name | Relationship | Address | Phone | + + + + + | [employer] | ECON | [phone] | | | | | Unknown | | + + + + + Care Team Providers + +------+ + | Care Punchboard Filling Machine Operator Name | Role | Phone [...] | [address] [place], [place] | [place] [address] | | | | | [address] | [phone] | | | | | [phone] | | | +--------+ + + + [...] | | | | | [place] [address] | | | | | | [phone] | | | | | | | | +--------+---------+ + + + | 04/30/ | Office | Sleep Medicine | Jacky Calderon PA | | | 2020 | Visit | | [address] | | | | | | [place] | | | | | | [phone] | | | | | | | | +--------+---------+ + + + documented as of this encounter Visit Diagnoses Not on filedocumented in this encounter"
--- OUTSIDE RECORDS SUMMARY | ~2020-03-24 | XMS | Encounter Summary ---
Demographics + + + | Address | [address] | | | [place] [address] | + + + | Home Phone [...] Author + + + | Author | [facility] | + + + | Organization | [facility] | + + + | Address | Unknown | + + + | Phone | Unavailable | + + + Support + + +---------+ + | Name | Relationship | Address | Phone | + + +---------+ + | Lidia Thibodeaux | ECON | Unknown | | + + +---------+ + Care Team Providers + +------+ + | Care Tool Grinding Machine Operator Name | Role | Phone [...] | | | | Melanocytic | Yuni, MANUFACTURING MANAGEMENT ASSOCIATE | Marivel C, | | | | | nevi, | [facility] | ,PhD 1936 | | | | | unspecified | Terence | Jose Carlos | | | | | | Family Care | [place], | | | | | | [address] | [place] [address] | | | | | | Terence [place] | Phone: | | | | | | [place], | [phone] | | | | | | [place] [address] | Fax: | | | | | | Phone: | [phone] | | | | | | [phone] | | | | | | | Fax: | | | | | | | [phone] | | +--------+--------+ + + + + Encounter Details +--------+---------+ + + + | Date | Type | Department | Care Team | Description | +--------+---------+ + + + | 07/19/ | Office | Dermatology at | Marivel Rao, | Nevus (Primary Dx) | | 2015 | Visit | [facility] | ,PhD 1936 | | | | | Clinic [address] | [address] [place], [place] | | | | | [place], [place] | [address] | | | | | [address] | [phone] | | | | | [phone] | | | +--------+---------+ + + + [...] skin cance rs including melanoma. ? The [place] [employer] (AAD) recommends you wear [...] information is available at the following websites: [email or web address]://[email or web address]/xd/health/services/[email or web address]/for-patients/health_[email or web address] - [facility] Derm atology [email or web address]://www.aad.org/public/sun/smart.html - AAD Website documented [...] cancer. She is here today with her pharmacy sales assistant. Vega skin type II. She does occasionally [...] fail to improve. Marivel Rao M.D. Ph.D. Global Commodity Manager Department of Dermatology [facility] ([facility] Dermatology documented in th is encounter Plan of Treatment Not on filedocumented as of this encounter Visit Diagnoses + + | Diagnosis | + + | Nevus - Primary Benign neoplasm of skin, site unspecified | + + documented in this encounter
--- OUTSIDE RECORDS SUMMARY | ~2020-03-24 | XMS | Encounter Summary ---
Demographics + + + | Address | [address] | | | [place] [address] | + + + | Home Phone [...] Organization | [facility] | | | and [place]am[place] | + + + | Address | Unknown | + + + | Phone | Unavailable | + + + Support + + + + + | Name | Relationship | Address | Phone | + + + + + | [employer] | ECON | [phone] | | | | | Unknown | | + + + + + Care Team Providers + +------+ + | Care Voice Engineer Name | Role | Phone | + +------+ + | Gela Trimble NP | PCP | | + +------+ + Encounter Details +--------+ + + + + | Date | Type | Department | Care Team | Description | +--------+ + + + + | 09/11/ | Hospital | [facility] | Saharaenstein, | Primary pulmonary | | 2013 | Encounter | MED CTR PULMONARY | Vera Farrar MD | hypertension; COPD | | | | FUNCTION [address] | | (chronic obstructive | | | | [place], | | pulmonary disease); | | | | [place] [address] | | Hypoxemia | | | | [phone] | | | +--------+ + + + [...] | | | | | | | ([facility]) | | | | | | + + + +---------+ + + | buPROPion | Take 100 mg by mouth | | 0 | | | | (WELLBUTRIN) 100 mg | 2 times daily. | | | | 6 | | tablet | | | | | | + + + +---------+ + + | [place] Starch POWD | by Does not apply [...] + + + +---------+ + + | [place]-3 Fatty | Take by mouth. | | [...] | | | | | [place] [address] | | | | | | [phone] | | | | | | | | +--------+---------+ + + + | 04/30/ | Office | Sleep Medicine | Jacky Calderon PA | | | 2019 | Visit | | [address] | | | | | | [place] | | | | | | [address] | | | | | | | [...]
--- OUTSIDE RECORDS SUMMARY | ~2020-03-24 | XMS | Encounter Summary ---
Demographics + + + | Address | [address] | | | [place] [address] | + + + | Home Phone [...] + | Organization | [facility] | | | and [place]am[place] | + + + | Address | Unknown | + + + | Phone | Unavailable | + + + Support + + + + + | Name | Relationship | Address | Phone | + + + + + | [employer] | ECON | [phone] | | | | | Unknown | | + + + + + Care Team Providers + +------+ + | Care Leasing Manager Name | Role | Phone | [...] | | | | | | [place] [address] | | | | | | [phone] | | | +--------+ + + + [...] | | | | | [place] [address] | | | | | | [phone] | | | | | | | | +--------+---------+ + + + | 04/30/ | Office | Sleep Medicine | Jacky Calderon PA | | | 2020 | Visit | | [address] | | | | | | [place] | | | | | | [address] | | | | | | | [...]
--- OUTSIDE RECORDS SUMMARY | ~2020-03-24 | XMS | Encounter Summary ---
Demographics + + + | Address | [address] | | | [place] [address] | + + + | Home Phone [...] | Organization | [facility] | | | and [place]am[place] | + + + | Address | Unknown | + + + | Phone | Unavailable | + + + Support + + + + + | Name | Relationship | Address | Phone | + + + + + | [employer] | ECON | [phone] | | | | | Unknown | | + + + + + Care Team Providers + +------+ + | Care Bus Driver Name | Role | Phone | [...] | | | | | obstructive | ENGINE INSTALLER [address] | [address] | | | | | pulmonary | [address] | [place], [place] | | | | | disease, | [place], | [address] | | | | | unspecified | [place] [address] | Phone: | | | | | (HCC) | Phone: | [phone] | | | | | Procedures | [phone] | Fax: | | | | | F/U APPT DR | Fax: | [phone] | | | | | SCOUT | [phone] | | | | | | J[place] | | | | | | | 02/21/18 | | | +--------+--------+ + + + + Encounter Details +--------+---------+ + + + | Date | Type | Department | Care Team | Description | +--------+---------+ + + + | 02/21/ | Office | [facility] | Scout Arthur, | Pulmonary | | 2018 | Visit | PULMONARY [address] | [address] | hypertension, | | | | [place], | [place] [address] | unspecified (HCC) | | | | [place] [address] | [phone] | (Primary Dx) | | | | [phone] | | | +--------+---------+ + + + [...] had been diagnosed prior to that at [facility] in [place] by Dr. Lashae Rivera whose excellent notes [...] She is not taking spironolactone. See the [facility] ed section for medications. She had an [...] from in-home medical. We spent 25 minutes [id number], at least half in counseling. Word processing [...] [address]ILA | | | | | | [place] [address] | | | | | | [phone] | | | | | | | | +--------+---------+ + + + | 04/30/ | Office | Sleep Medicine | Jacky Calderon PA | | | 2019 | Visit | | [address] | | | | | | [place] | | | | | | [address] | | | | | | | | +--------+---------+ + + + documented as of this encounter Visit Diagnoses + + | Diagnosis | + + | Pulmonary hypertension, unspecified (HCC) - Primary | + + documented in this encounter
--- OUTSIDE RECORDS SUMMARY | ~2020-03-24 | XMS | Encounter Summary ---
Demographics + + + | Address | [address] | | | [place] [address] | + + + | Home Phone [...] | Organization | [facility] | | | and [place] | + + + | Address | Unknown | + + + | Phone | Unavailable | + + + Support + + + + + | Name | Relationship | Address | Phone | + + + + + | [employer] | ECON | [phone] | | | | | Unknown | | + + + + + Care Team Providers + +------+ + | Care Care Transitions Nurse Name | Role | Phone | [...] | 08/29/ | Telephone | [facility] | Offenstein, | Results (nocturnal | | 2014 | | PULMONARY [address] | Vera Farrar MD | oximetry) | | | | [place], | | | | | | [place] [address] | | | | | | [phone] | | | +--------+ + + + [...] | | | | | [place] [address] | | | | | | [phone] | | | | | | | | +--------+---------+ + + + | 04/30/ | Office | Sleep Medicine | Jacky Calderon PA | | | 2019 | Visit | | [address] | | | | | | [place] | | | | | | [address] | | | | | | | [...]
--- OUTSIDE RECORDS SUMMARY | ~2020-03-24 | XMS | Clinical Summary ---
Demographics + + + | Address | [address] | | | [place] [address] | + + + | Home Phone [...] Team Providers + +------+ + | Care Word Processing Machine Operator Name | Role | Phone | + +------+ + | Yuni Shrestha | PCP | | + +------+ + Source Comments SARAH is fully live on both EpicCare Ambulatory and EpicCare InPatient.[facility] Allergies + + + + + + [...] e | + + + +---------+------+------+-------+ | [place]-3 Fatty | Take 1 Cap by mouth [...] | + +--------+ +--------+ + +--------+ | CLOUD OPERATIONS ENGINEER MEDICAID | CLOUD OPERATIONS ENGINEER | [id number] | Effect | | | [...] PLUS | | 12-Pre | 6 | [id number] | id | | | OPEN | | sent | | [place] | | | | CARD | | | | [id number] | | + +--------+ +--------+ + +--------+ [...] | 1965 | [phone] | [place] [address] | | | jammie | | | 0 (Home) | | + +--------+ +--------+ + + | Margarita Rowley May | Person | Self | [birth year] | [address] | | | al/Fam | | 1965 | [phone] | [place] [address] | | | jammie | | | [...]
--- OUTSIDE RECORDS SUMMARY | ~2020-03-24 | XMS | Encounter Summary ---
Demographics + + + | Address | [address] | | | [place] [address] | + + + | Home Phone [...] | [facility] | | | and [place]am[place] | + + + | Address | Unknown | + + + | Phone | Unavailable | + + + Support + + + + + | Name | Relationship | Address | Phone | + + + + + | [employer] | ECON | [id number] | | | | | Unknown | | + + + + + Care Team Providers + +------+ + | Care Senior Sql Database Developer Name | Role | Phone | [...] + + | 07/23/ | Office | [facility] | Jacky Calderon PA | Primary central | | 2016 | Visit | SLEEP DISORDER [address] | [address] | sleep apnea (Primary | | | | [address] [place] | [place] | Dx) | | | | [place] [address] | [address] | | | | | [phone] | | | +--------+---------+ + + + [...] was: 05/22/2015 date of polysomnography: 03/13/[address] [facility] AHI: 64.2 O2%: n/a Machine type: Respironics BiPAP Auto with ResMed Quattro FX full face mask obtained from: [employer] in [place] pressure: 16/5 cm with backup rate of [...] Assessment: Problem #1: PRIMARY CENTRAL SLEEP APNEA ([id number]) This is controlled with BiPAP and oxygen at 5 L/min. Her compliance is going very well. Plan: 1. She is to continue with BiPAP indefinitely. 2. She is to touch base with her medical supplier twice per year to ensure that her equipm ent is satisfactory. I will follow up with her in 1 year, sooner prn. Fifteen minutes were spent oszs-tg-mrus, with the majority of time spent in [...] | | | | | [place] [address] | | | | | | [phone] | | | | | | | | +--------+---------+ + + + | 04/30/ | Office | Sleep Medicine | Jacky Calderon PA | | | 2020 | Visit | | [address] | | | | | | [place] | | | | | | [address] | | | | | | | | +--------+---------+ + + + documented as of this encounter Visit Diagnoses + + | Diagnosis | + + | Primary central sleep apnea - Primary | + + documented in this encounter"
--- OUTSIDE RECORDS SUMMARY | ~2020-03-24 | XMS | Encounter Summary ---
Demographics + + + | Address | [address] | | | [place] [address] | + + + | Home Phone | | + + + | Preferred Language | Unknown | + + + | Marital Status | Single | + + + | Roman Catholic Affiliation | 1009 | + + + | Race | Unknown | + + + | Ethnic Group | Unknown | + + + Author + + + | Author | [facility] | | | and [place]am[place] | + + + | Organization | [facility] | | | and [place] | + + + | Address | Unknown | + + + | Phone | Unavailable | + + + Support + + + + + | Name | Relationship | Address | Phone | + + + + + | [employer] | ECON | [phone] | | | | | Unknown | | + + + + + Care Team Providers + +------+ + | Care Special Effects Makeup Artist Name | Role | Phone | [...] | apnea; Hypoxemia | | | | [place], | | | | | | [place] [address] | | | | | | [phone] | | | +--------+ + + + [...] | | | | | [place] [address] | | | | | | [phone] | | | | | | | | +--------+---------+ + + + | 04/30/ | Office | Sleep Medicine | Jacky Calderon PA | | | 2019 | Visit | | [address] | | | | | | [place] | | | | | | [id number] | | | | | | | | +--------+---------+ + + + documented as of this encounter Visit Diagnoses + + | Diagnosis | + + | Obstructive sleep apnea Obstructive sleep apnea (adult) (pediatric) | + + | Hypoxemia | + + documented in this encounter"
--- OUTSIDE RECORDS SUMMARY | ~2020-03-24 | XMS | Encounter Summary ---
Demographics + + + | Address | [address] | | | [place] [address] | + + + | Home Phone [...] Organization | [facility] | | | and [place]am[place] | + + + | Address | Unknown | + + + | Phone | Unavailable | + + + Support + + + + + | Name | Relationship | Address | Phone | + + + + + | [employer] | ECON | [phone] | | | | | Unknown | | + + + + + Care Team Providers + +------+ + | Care Snuff Blender Name | Role | Phone | [...] Farrar MD | | | | | [place], | | | | | | [place] [address] | | | | | | [phone] | | | +--------+--------+ + + + [...] | | | | | [place] [address] | | | | | | [phone] | | | | | | | | +--------+---------+ + + + | 04/30/ | Office | Sleep Medicine | Jacky Calderon PA | | | 2019 | Visit | | [address] | | | | | | [place] | | | | | | [address] | | | | | | | | +--------+---------+ + + + documented as of this encounter Visit Diagnoses Not on filedocumented in this encounter"
--- OUTSIDE RECORDS SUMMARY | ~2020-03-24 | XMS | Encounter Summary ---
Demographics + + + | Address | [address] | | | [place] [address] | + + + | Home Phone [...] | Organization | [facility] | | | and [place]am[place] | + + + | Address | Unknown | + + + | Phone | Unavailable | + + + Support + + + + + | Name | Relationship | Address | Phone | + + + + + | [employer] | ECON | [phone] | | | | | Unknown | | + + + + + Care Team Providers + +------+ + | Care Director Advertising Name | Role | Phone | + +------+ + | Gela Trimble NP | PCP | | + +------+ + Encounter Details +--------+ + + + + | Date | Type | Department | Care Team | Description | +--------+ + + + + | 06/15/ | Orders Only | [facility] [place] | Offenstein, | Other chronic | | 2012 | | PULMONARY [address] | Vera Farrar MD | pulmonary heart | | | | [place], | | diseases (HCC) | | | | [place] [address] | | (Primary Dx); | | | | [phone] | | Chronic airway | | | | | | obstruction, not | | | | | | elsewhere classified | | | | | | ([facility]) | +--------+ + + + + Social [...] | | | | | [address] | | | | | | [place] [address] | | | | | | [phone] | | | | | | | | +--------+---------+ + + + | 04/30/ | Office | Sleep Medicine | Jacky Calderon PA | | | 2020 | Visit | | [address] | | | | | | [place] | | | | | | [address] | | | | | | | | +--------+---------+ + + + + + +--------+ + + | Name | Type | Priori | Associated Diagnoses | Order Schedule | | | | ty | | | + + +--------+ + + | Pulmonary Fx Tests | Respiratory | BHAVIN | Other chronic | 1 Occurrences | | (Hospital Performed) | Care | | pulmonary heart | starting 06/15/2013 | | | | | diseases ([facility]) | until 06/15/2014 | | | | | Chronic airway | | | | | | obstruction, not | | | | | | elsewhere classified | | | | | | ([facility]) | | + + +--------+ + + documented as of this encounter Visit Diagnoses + + | Diagnosis | + + | Other chronic pulmonary heart diseases - Primary | + + | Chronic airway obstruction, not elsewhere classified | + + documented in this encounter"
--- OUTSIDE RECORDS SUMMARY | ~2020-03-24 | XMS | Encounter Summary ---
Demographics + + + | Address | [address] | | | [place] [address] | + + + | Home Phone [...] + | Organization | [facility] | | | and [place]am[place] | + + + | Address | Unknown | + + + | Phone | Unavailable | + + + Support + + + + + | Name | Relationship | Address | Phone | + + + + + | [employer] | ECON | [phone] | | | | | Unknown | | + + + + + Care Team Providers + +------+ + | Care Back Hoe Machine Operator Name | Role | Phone | + +------+ + | Gela Trimble NP | PCP | | + +------+ + Reason for Visit +--------+ + | Reason | Comments | +--------+ + | Other | Appointment Cancellation | +--------+ + Encounter Details +--------+ + + + + | Date | Type | Department | Care Team | Description | +--------+ + + + + | 07/09/ | Telephone | [facility] [place] | Roberto Salguero | Other (Appointment | | 2012 | | [place] [address] | MD Ananth [address] | Cancellation) | | | | [place], | [address] [place] | | | | | [place] [address] | [place] [address] | | | | | [phone] | [phone] | | | | | | | [...] | | | | | [place] [address] | | | | | | [phone] | | | | | | | | +--------+---------+ + + + | 04/30/ | Office | Sleep Medicine | Jacky Calderon PA | | | 2019 | Visit | | [address] | | | | | | [place] | | | | | | [address] | | | | | | | | +--------+---------+ + + + documented as of this encounter Visit Diagnoses Not on filedocumented in this encounter"
--- OUTSIDE RECORDS SUMMARY | ~2020-03-24 | XMS | Encounter Summary ---
Demographics + + + | Address | [address] | | | [place] [address] | + + + | Home Phone [...] | Organization | [facility] | | | and [place] | + + + | Address | Unknown | + + + | Phone | Unavailable | + + + Support + + + + + | Name | Relationship | Address | Phone | + + + + + | [employer] | ECON | [id number] | | | | | Unknown | | + + + + + Care Team Providers + +------+ + | Care College Basketball Coach Name | Role | Phone | + [...] [place], | | | | | | [place] [address] | | | | | | [phone] | | | +--------+ + + + [...] | | | | | [place] [address] | | | | | | [phone] | | | | | | | | +--------+---------+ + + + | 04/30/ | Office | Sleep Medicine | Jacky Calderon PA | | | 2020 | Visit | | [address] | | | | | | [place] | | | | | | [address] | | | | | | | | +--------+---------+ + + + documented as of this encounter Visit Diagnoses Not on filedocumented in this encounter"
--- OUTSIDE RECORDS SUMMARY | ~2020-03-24 | XMS | Encounter Summary ---
Demographics + + + | Address | [address] | | | [place] [address] | + + + | Home Phone [...] | Organization | [facility] | | | and [place] | + + + | Address | Unknown | + + + | Phone | Unavailable | + + + Support + + + + + | Name | Relationship | Address | Phone | + + + + + | [employer] | ECON | [phone] | | | | | Unknown | | + + + + + Care Team Providers + +------+ + | Care Light Technician Name | Role | Phone | [...] | | PULMONARY [address] | Vera Farrra MD | oximetry order) | | | | [place], | | | | | | [place] [address] | | | | | | [phone] | | | +--------+ + + + [...] | | | | | [place] [address] | | | | | | [phone] | | | | | | | | +--------+---------+ + + + | 04/30/ | Office | Sleep Medicine | Jacky Calderon PA | | | 2019 | Visit | | [address] | | | | | | [place] | | | | | | [address] | | | | | | | [...]
--- OUTSIDE RECORDS SUMMARY | ~2020-03-24 | XMS | Encounter Summary ---
Demographics + + + | Address | [address] | | | [place] [address] | + + + | Home Phone [...] Organization | [facility] | | | and [place] | + + + | Address | Unknown | + + + | Phone | Unavailable | + + + Support + + + + + | Name | Relationship | Address | Phone | + + + + + | [employer] | ECON | [id number] | | | | | Unknown | | + + + + + Care Team Providers + +------+ + | Care Wool Hat Sanding Machine Operator Name | Role | Phone | + +------+ + | Gela Trimble NP | PCP | | + +------+ + Reason for Visit + + + | Reason | Comments | + + + | Follow-up | Pulmonary hypertension | + + + Encounter Details +--------+---------+ + + + | Date | Type | Department | Care Team | Description | +--------+---------+ + + + | 08/27/ | Office | [facility] | [place], | Primary pulmonary | | 2012 | Visit | PULMONARY [address] | Vera Farrar MD | hypertension (HCC) | | | | [place], | | (Primary Dx); COPD | | | | [place] [address] | | (chronic obstructive | | | | [phone] | | pulmonary disease) | | | | | | (HCC); Obstructive | | | | | | sleep apnea | +--------+---------+ + + + Social History [...] + + + | Blood Pressure | 106/64 | 08/27/2013 10:35 AM | | | | | PDT | | + + + + + | Pulse | 78 | 08/27/2013 10:35 AM | | | | | PDT | | + + + + + | Temperature | - | - | | + + + + + | Respiratory Rate | - | - | | + + + + + | Oxygen Saturation | 94% | 08/27/2013 10:35 AM | On 2L | | | | PDT | | + + + + + | Inhaled Oxygen | - | - | | | Concentration | | | | + + + + + | Weight | 103.9 kg (229 lb) | 08/27/2013 10:35 AM | | | | | PDT | | + + + + + | Height | 149.9 cm (4' 11") | 08/27/2013 10:35 AM | | | | | PDT | | + + + + + | Body Mass Index | 46.25 | 08/27/2013 10:35 AM | | | | | PDT | | + + + + + documented in this encounter Patient Instructions Patient Instructions Vera Lainez MD - 08/27/2013 11:00 AM PDTCan we please get a download off her BiPAP machine, you can take it [facility] to [facility] today. Start Qvar 80mcg 1 puff inhaled twice daily, and rinse after use. I will talk to Dr. Rivera about the Adcirca and Letairus, and if we will need to stop the A dcirca when starting the Letairus. documented in this encounter Progress Notes Vera Lainez MD - 08/27/2013 10:49 AM PDTFormatting of this note might be differe nt from the original. Pulmonary Follow Up MD Elo Bernardo [facility] [address] [place], [address] HPI Margarita Rowley is a 47 y.o. female patient of Gela Trimble [facility] here today for follow up of pulmonary hypertension. At their last visit, we had written for her to start tadalafil. She saw Miguel Desouza, who rec ommended that she start a new medication, called Letairus. They did also stop her hormone re placement. Her caregivers do not know the status of the new medication. Dr. Rivera's notes d o not have the tadalafil on her medication list, nor many of her other medications, so I nee d to clarify if we need to stop the tadalafil when she starts the new medication. She has been using her BiPAP machine every night (BiPAP ST IPAP 19/EPAP 5, rate 8, O2 bleed in 2), and she did get the new mask. They seem to note that she still has mask leak issues. She reports feeling tired all the time. We have not gotten a download off the new machine. She is reportedly sleeping at night as well. She has been walking more often, from the chair to the bathroom. They have been trying to g et her to walk 100 feet each day. She has not had hypoxia. She has briefly dropped to 87%, but this has happened when transfe rring from the car to chair, without increasing the oxygen. Past Medical History Past Medical History Diagnosis [...] Years of Education: N/A Occupational History Disabled. [employer] Social History Main Topics Smoking status: Former Smoker -- 1.0 packs/day for 20 years Types: Cigarettes Quit date: 05/14/2013 Smokeless tobacco: None Alcohol Use: Yes history of abuse Drug Use: Yes Special: Cocaine history of cocaine use Sexually Active: None Other Topics Concern None Social History Narrative [place] [facility]. Allergies: Allergies Allergen Reactions Erythromycin Metronidazole Penicillins Sulfa Antibiotics Medications: Outpatient Encounter Prescriptions as of 08/27/2013 Medication Status Sig Dispense Refill acetaminophen (MAPAP) 325 mg tablet Active Take 650 mg by mouth every 4 hours as needed . albuterol (VENTOLIN HFA) 90 mcg/puff inhaler Active Inhale 2 puffs into the lungs every 6 hours as needed. ascorbic acid (VITAMIN C) 500 mg tablet Active Take 500 mg by mouth Daily. beclomethasone (QVAR) 80 mcg/puff inhaler Active Inhale 1 puff into the lungs 2 times d aily. 1 Inhaler 11 buPROPion (WELLBUTRIN) 100 mg tablet Active Take 100 mg by mouth 2 times daily. cetirizine (ZYRTEC) 10 mg tablet Active Take 10 mg by mouth Daily. cholecalciferol (VITAMIN D-3) 2000 UNITS TABS Active Take 2,000 Units by mouth Daily. [place] Starch POWD Active by Does not apply route 4 times daily. divalproex (DEPAKOTE) 500 mg EC tablet Active Take 500 mg by mouth 3 times daily. docusate sodium (COLACE) 50 MG capsule Active Take 50 mg by mouth 2 times daily. Elastic Bandages & Supports (MEDICAL COMPRESSION STOCKINGS) MISC Active by Does not curt ly route. estradiol (ESTRACE) 1 mg tablet Discontinued Take 2 mg by mouth Daily. furosemide (LASIX) 80 mg tablet Active Take [...] as needed. medroxyPROGESTERone (PROVERA) 5 MG tablet Discontinued Take 5 mg by mouth Daily. meloxicam (MOBIC) 15 mg tablet Active Take 15 mg by mouth Daily. miconazole (MICONAZOLE 7) 2% vaginal cream Discontinued Place 1 applicator vaginally 2 times daily. nicotine (NICODERM) 7 mg/[address] 1 patch onto the skin every 24 hours. [place]-3 Fatty Acids (SEA-OMEGA 30) 1200 MG CAPS [...] 2 times daily. Respiratory Therapy Supplies MISC Active BIPAP ST rate 8 cm H2O. IPAP 19/EPAP 5. O2 ble ed in at 2 l/m. Lifetime. Dx: 327.23 1 each 0 Respiratory Therapy Supplies MISC Active Please contact Dr. Lainez's office if oxyg en level drops below 88% more than 3 times during a 24 hours time period. 1 each 0 risperiDONE (RISPERDAL) 4 MG tablet Active Take 4 mg by mouth Daily. simvastatin (ZOCOR) 20 mg tablet Active Take 20 mg by mouth nightly. tadalafil (ADCIRCA) 20 mg tablet Active Take 2 tablets by mouth Daily. 60 tablet 2 vitamin B-12 (CYANOCOBALAMIN) 1000 MCG tablet Active Take 1,000 mcg by mouth Daily. Review of Systems Constitutional: Denies fever, chills, sweats. Weight has increased. Sleep: Increased daytime somnolence. Using BiPAP, no CO2 retention. Resp: See HPI. CV: Denies chest pain, or change in swelling. Skin: They note the facial flushing comes and goes. Musculoskeletal: Some left leg pain. Objective BP 106/64 | Pulse 78 | Ht 1.499 m (4' 11") | Wt 103.874 kg (229 lb) | BMI 46.25 kg/m2 | SpO 2 94% General Appearance: Alert, cooperative, no distress, appears stated age, in a wheelchair a nd on oxygen, falls asleep easily Head: Normocephalic, without obvious abnormality, atraumatic Eyes: [...] non-tender, non-distended, obese Extremities: No cyanosis, clubbing, 1+ pitting lower extremity edema Pulses: Radial pulses 1-2+ and symmetric Skin: Warm and dry, faint pink, easily blanchable rash/flushing on cheeks Lymph nodes: Cervical and supraclavicular nodes normal Data: Lashae Rivera's notes were reviewed in clinic today. ABG 7.45/34/56/23/90% Repeat BiPAP titration reviewed in clinic today. Patient was ordered to be placed on BiPAP ST 19/5, back up rate of 8, O2 bleed in of 2L. They report her machine settings were changed . Assessment 1. Primary pulmonary hypertension - She has mixed pulmonary hypertension secondary to noctu rnal hypoxemia, but also felt to have a large component of primary pulmonary hypertension. Angel Luis Rivera would like for her to be on Letairis, but seems unaware that she was on Adcirca af ter her last visit here. I have placed a call to Dr. Rivera and also to the pharmacy regardi ng side effects as I am concerned that the somnolence may be due to the Adcirca. We will cla rify and look at possibly stopping the Adcrica (or at least dropping the dose). 2. COPD (chronic obstructive pulmonary disease) - She has fairly mild disease, masked by ho w much obesity she has. 3. Obstructive sleep apnea - Retitrated to BiPAP. We need to get a download to see how this is working, especially in light of somnolence seen today. ABG done at Dr. Rivera's office s howed no evidence of CO2 retention. She was apparently somnolent there, and may or may not h ave been on Adcirca at that time (I am not sure if it had been received from the pharmacy ye t). Plan 1.Clarify stopping Adcirca and starting Letairis. 2.Get a BiPAP download to see how this is working. 3.Add Qvar 80mcg 1 puff twice daily. 4.Check CBC, CMP today. They were advised to call if new pulmonary symptoms were to develop. Return to clinic in 3 weeks, or sooner with concerns. CC: Gela Otoole, Lashae Rivera MD Portions of this report were transcribed using voice recognition software. Every effort wa s made to ensure accuracy; however, inadvertent computerized die sinker apprentice errors may be pre sent. documented in [...] | | | | | [place] [address] | | | | | | [phone] | | | | | | | | +--------+---------+ + + + | 04/30/ | Office | Sleep Medicine | Jacky Calderon PA | | | 2019 | Visit | | [address] | | | | | | [place] | | | | | | [address] | | | | | | | | +--------+---------+ + + + documented as of this encounter Results Comprehensive Metabolic Panel (08/27/2013 [...] | 1.06 | 0.60 - 1.30 | [facility] | | | | | mg/dL | [...] 25.5 (H) | 12 - 20 | [facility] | | | ine Ratio | | | [facility] | | [...] | + + + + + | [facility] | [address] | [place] | [phone] | | [facility] | | [address] | | | - LABORATORY | | | | + + + + + | [facility] | [address] | [place] | | | [facility] | | [id number] | | | - LABORATORY [...] | | | | | gm/dL | [facility] | | | | [...] [facility] | | | | | | [facility] | | | | [...] + | [facility] | [address] | [place], [place] | [phone] | | [facility] | | [address] | | | - LABORATORY | | | | + + + + + | [facility] | [address] | [place], [place] | | | [facility] | | [address] [place] [address] | | | - LABORATORY | | | | + + + + + documented in this encounter Visit Diagnoses + + | Diagnosis | + + | Primary pulmonary hypertension (HCC) - Primary Primary pulmonary hypertension | + + | COPD (chronic obstructive pulmonary disease) (HCC) Chronic airway obstruction, not | | elsewhere classified | + + | Obstructive sleep apnea Obstructive sleep apnea (adult) (pediatric) | + + documented in this encounter
--- OUTSIDE RECORDS SUMMARY | ~2020-03-24 | XMS | Encounter Summary ---
Demographics + + + | Address | [address] | | | [place] [address] | + + + | Home Phone [...] Organization | [facility] | | | and [place] | + + + | Address | Unknown | + + + | Phone | Unavailable | + + + Support + + + + + | Name | Relationship | Address | Phone | + + + + + | [employer] | ECON | [phone] | | | | | Unknown | | + + + + + Care Team Providers + +------+ + | Care Size Tester Name | Role | Phone | [...] | RN | | | | | [place], | | | | | | [place] [address] | | | | | | [phone] | | | +--------+ + + + [...] | | | | | [place] [address] | | | | | | [phone] | | | | | | | | +--------+---------+ + + + | 04/30/ | Office | Sleep Medicine | Jacky Calderon PA | | | 2019 | Visit | | [address] | | | | | | [place] | | | | | | [address] | | | | | | | | +--------+---------+ + + + documented as of this encounter Visit Diagnoses + + | Diagnosis | + + | Obstructive sleep apnea (adult) (pediatric) - Primary | + + documented in this encounter"
--- OUTSIDE RECORDS SUMMARY | ~2020-03-24 | XMS | Encounter Summary ---
Demographics + + + | Address | [address] | | | [place] [address] | + + + | Home Phone [...] Organization | [facility] | | | and [place] | + + + | Address | Unknown | + + + | Phone | Unavailable | + + + Support + + + + + | Name | Relationship | Address | Phone | + + + + + | [employer] | ECON | [id number] | | | | | Unknown | | + + + + + Care Team Providers + +------+ + | Care Instructor Adjunct Surgical Technician Name | Role | Phone | [...] | Jacky Calderon | | | | Facilities Operator / | Obstructive | Shanice Paez, | D, PA [address] | | | | Sleep | sleep apnea | [address] | [address] | | | | Medicine | (adult) | [place] | [place], | | | | | (pediatric) | [place], | [place] [address] | | | | | 2 mo cpap | [place] | Phone: | | | | | follow up, | [address] | [phone] | | | | | bring | Phone: | Fax: | | | | | equip/AO- | [phone] | [phone] | | | | | new machine | Fax: | | | | | | Procedures | [phone] | | | | | | 05/30 [...] + + | 04/16/ | Office | [facility] | Jacky Calderon PA | Primary central | | 2019 | Visit | SLEEP DISORDER [address] | [address] | sleep apnea (Primary | | | | [address] [place] | [place], [place] | Dx) | | | | [place] [address] | [address] | | | | | [phone] | | | +--------+---------+ + + + [...] visit: 06/14/2018 date of polysomnography: 03/13/2013 at [facility] AHI: 64.2 O2%: n/a Machine type: Respironics DreamStation Auto BiPAP Mask type: ResMed Quattro FX full face mask DME: [facility] [place] pressure: 16/5 cm with backup rate of [...] during the day and naps multiple times. Adelfo boland again discussed having her avoid naps during [...] Assessment: Problem #1: PRIMARY CENTRAL SLEEP APNEA ([id number]) This is controlled with BiPAP and oxygen [...] | | | | | | [place] [address] | | | | | | [phone] | | | | | | | | +--------+---------+ + + + | 04/30/ | Office | Sleep Medicine | Jacky Calderon PA | | | 2020 | Visit | | [address] | | | | | | [place] | | | | | | [address] | | | | | | | | +--------+---------+ + + + documented as of this encounter Visit Diagnoses + + | Diagnosis | + + | Primary central sleep apnea - Primary | + + documented in this encounter"
--- OUTSIDE RECORDS SUMMARY | ~2020-03-24 | XMS | Encounter Summary ---
Demographics + + + | Address | [address] | | | [place] [address] | + + + | Home Phone [...] | Organization | [facility] | | | and [place] | + + + | Address | Unknown | + + + | Phone | Unavailable | + + + Support + + + + + | Name | Relationship | Address | Phone | + + + + + | [employer] | ECON | [id number] | | | | | Unknown | | + + + + + Care Team Providers + +------+ + | Care Tube Cleaner Name | Role | Phone | [...] | | | | | | [place] [address] | | | | | | [phone] | | | +--------+ + + + [...] | | | | | [place] [address] | | | | | | [phone] | | | | | | | | +--------+---------+ + + + | 04/30/ | Office | Sleep Medicine | Jacky Calderon PA | | | 2020 | Visit | | [address] | | | | | | [place] | | | | | | [address] | | | | | | | [...] [address] | [place] | [phone] | | [facility] | | [id number] | | | - LABORATORY | | | | + + + + + documented in this encounter Visit Diagnoses Not on filedocumented in this encounter"
--- OUTSIDE RECORDS SUMMARY | ~2020-03-24 | XMS | Encounter Summary ---
Demographics + + + | Address | [address] | | | [place] [address] | + + + | Home Phone [...] | [facility] | | | and [place] | + + + | Address | Unknown | + + + | Phone | Unavailable | + + + Support + + + + + | Name | Relationship | Address | Phone | + + + + + | [employer] | ECON | [phone] | | | | | Unknown | | + + + + + Care Team Providers + +------+ + | Care Operating Room Scheduler Name | Role | Phone | + +------+ + | Gela Trimble NP | PCP | | + +------+ + Encounter Details +--------+ + + + + | Date | Type | Department | Care Team | Description | +--------+ + + + + | 07/30/ | Hospital | [facility] | [place], | | | 2012 | Encounter | MED CTR SLEEP | Vera Farrar MD | | | | | [address] | | | | | | [place] | | | | | | [address] | | | | | | [phone] | | | +--------+ + + + [...] | + + + +---------+--------+ + | Minden-3 Fatty | Take by mouth. | | [...] Description | +--------+---------+ + + + | 06/17/ | Office | Pulmonology | Helen Astudillo | | | 2019 | Visit | | MD Vikash [address] | | | | | | [address] [place] | | | | | | [place] [address] | | | | | | [phone] | | | | | | | [...]
--- OUTSIDE RECORDS SUMMARY | ~2020-03-24 | XMS | Encounter Summary ---
Demographics + + + | Address | [address] | | | [place] [address] | + + + | Home Phone [...] | Organization | [facility] | | | and [place] | + + + | Address | Unknown | + + + | Phone | Unavailable | + + + Support + + + + + | Name | Relationship | Address | Phone | + + + + + | [employer] | ECON | [id number] | | | | | Unknown | | + + + + + Care Team Providers + +------+ + | Care Co Founder And Ceo Name | Role | Phone | + +------+ + | Yuni Shrestha | PCP | | + +------+ + Reason for Visit + + + | Reason | Comments | + + + | Procedure | | + + + Encounter Details +--------+ + + + + | Date | Type | Department | Care Team | Description | +--------+ + + + + | 07/09/ | Telephone | [facility] [place] | [place], | Procedure | | 2015 | | GASTROENTEROLOGY | BRITTANY Maddox [address] | | | | | [address] [place] | [place], [place] [address] | | | | | [address] [place], [place] | [place], [place] | | | | | [address] | [address] | | | | | [phone] | | | +--------+ + + + [...] | | | | | [place] [address] | | | | | | [phone] | | | | | | | [...]
--- OUTSIDE RECORDS SUMMARY | ~2020-03-24 | XMS | Encounter Summary ---
Demographics + + + | Address | [address] | | | [place] [address] | + + + | Home Phone [...] Providers + +------+ + | Care Sales Floor Team Leader Name | Role | Phone | + +------+ + | Gela Trimble NP | PCP | | + +------+ + Encounter Details +--------+ + + + + | Date | Type | Department | Care Team | Description | +--------+ + + + + | 05/04/ | Results | Stress | Other, Faculty | | | 2012 | Only | Echocardiography | [phone] | | | | | [address] | | | | | | Loop Mailcode: | | | | | | [id number] Outpatient | | | | | | Clinic Building | | | | | | [place], [place] | | | | | | [address] | | | | | | [phone] | | | +--------+ + + + [...] DEPT OF | [address] | [place], [place] | | | CARDIOLOGY | [facility] | [address] | | + + + + + documented in this encounter Visit Diagnoses Not on filedocumented in this encounter"
--- OUTSIDE RECORDS SUMMARY | ~2020-03-24 | XMS | Encounter Summary ---
Demographics + + + | Address | [address] | | | [place] [address] | + + + | Home Phone [...] Organization | [facility] | | | and [place] | + + + | Address | Unknown | + + + | Phone | Unavailable | + + + Support + + + + + | Name | Relationship | Address | Phone | + + + + + | [employer] | ECON | [id number] | | | | | Unknown | | + + + + + Care Team Providers + +------+ + | Care Cst Name | Role | Phone | + [...] | | | | | pharyngeal | DOUBLE HEAD MACHINE OPERATOR [address] | DOUBLE HEAD MACHINE OPERATOR [address] | | | | | phase | [address] | [place], [place] | | | | | Procedures | [place], | [address] [place] | | | | | Office Visit | [place] [address] | [place], [place] | | | | | | Phone: | [address] Phone: | | | | | | [phone] | [phone] | | | | | | Fax: | Fax: | | | | | | [phone] | [phone] | +--------+--------+ + + + + Encounter [...] | [address] [place] | [place], [place] [address] | esophagitis presence | | | | [address] [place], [place] | [place], [place] | not specified | | | | [address] | [address] | (Primary Dx); | | | | [phone] | | Esophageal | | | | [...] COPD (chronic obstructive pulmonary disease) ([facility]) moderate, FEV1 1.40 (59%) Pulmonary [...] Years of Education: N/A Occupational History Disabled. [employer] Social History Main Topics Smoking status: Former Smoker -- 1.00 packs/day for 20 years Types: Cigarettes Quit date: 12/15/2015 Smokeless tobacco: Never Used Alcohol Use: No Drug Use: No Sexual Activity: Not on file Other Topics Concern Not on file Social History Narrative Lives at [place]. Review of systems: Constitutional:Denies any fevers, chills, [...] | | | | | [place] [address] | | | | | | [phone] | | | | | | | [...]
--- OUTSIDE RECORDS SUMMARY | ~2020-03-24 | XMS | Encounter Summary ---
Demographics + + + | Address | [address] | | | [place] [address] | + + + | Home Phone [...] Organization | [facility] | | | and [place] | + + + | Address | Unknown | + + + | Phone | Unavailable | + + + Support + + + + + | Name | Relationship | Address | Phone | + + + + + | [employer] | ECON | [phone] | | | | | Unknown | | + + + + + Care Team Providers + +------+ + | Care Supervisor [employer] Name | Role | Phone | + [...] | hypertension (HCC); | | | | [place], | | High risk medication | | | | [place] [address] | | use | | | | [phone] | | | +--------+ + + + [...] | | | | | [place] [address] | | | | | | [phone] | | | | | | | | +--------+---------+ + + + | 04/30/ | Office | Sleep Medicine | Jacky Calderon PA | | | 2019 | Visit | | [address] | | | | | | [place] | | | | | | [address] | | | | | | | [...]
--- OUTSIDE RECORDS SUMMARY | ~2020-03-24 | XMS | Encounter Summary ---
Demographics + + + | Address | [address] | | | [place] [address] | + + + | Home Phone | | + + + | Preferred Language | Unknown | + + + | Marital Status | Single | + + + | Zoroastrian Affiliation | 1009 | + + + | Race | Unknown | + + + | Ethnic Group | Unknown | + + + Author + + + | Author | [facility] | | | and [place] | + + + | Organization | [facility] | | | and [place] | + + + | Address | Unknown | + + + | Phone | Unavailable | + + + Support + + + + + | Name | Relationship | Address | Phone | + + + + + | [employer] | ECON | [phone] | | | | | Unknown | | + + + + + Care Team Providers + +------+ + | Care Soaking Room Operator Name | Role | Phone | [...] | Primary | Offenstein, | [address] | | | | | pulmonary | Vera B, | [place], | | | | | hypertension | MD [address] | [place] | | | | | ([facility]) | [address] | [address] | | | | | Procedures | [place], | Phone: | | | | | ECHO | [place] [address] | [phone] | | | | | Complete ID | | Fax: | | | | | ECHO HEART | | [phone] | | | | | XTHORACIC,CO | | | | | | | MPLETE W | | | | | | | DOPPLER ID | | | | | | | [...] | Chronic | Gela L, | Vera Farrar, | | | | Pulmonology | airway | SMEARER [address] | MD | | | | | obstruction, | IRMA | | | | | | not | [address] | | | | | | elsewhere | [place], | | | | | | classified | [place] [address] | | | | | | Procedures | Phone: | | | | | | F/U | [phone] | | | | | | | Fax: | | | | | | | [phone] | | +--------+--------+ + + + + Encounter Details +--------+---------+ + + + | Date | Type | Department | Care Team | Description | +--------+---------+ + + + | 03/12/ | [facility] | [facility] [place] | Fatou, | Primary pulmonary | | 2014 | Visit | PULMONARY [address] | Vera Farrar MD | hypertension; | | | | [address] [place], | | Exercise hypoxemia | | | | [place] [address] | | (HCC); Sleep related | | | | [phone] | | hypoxemia; COPD | | | [...] [facility] She is also on her BiPAP machine, [...] Diagnosis Date COPD (chronic obstructive pulmonary disease) ([facility]) moderate, FEV1 1.40 (59%) Pulmonary hypertension ([facility]) severe, class 1, class 2, class 3 Bipolar disorder ([facility]) PTSD (post-traumatic stress disorder) Osteoarthritis Obstructive sleep [...] Years of Education: N/A Occupational History Disabled. [employer] Social History Main Topics Smoking status: Former Smoker -- 1.00 packs/day for 20 years Types: Cigarettes Quit date: 12/10/2014 Smokeless tobacco: None Comment: restarted in August 2014, quit again 12/10/14 Alcohol Use: Yes Comment: history of abuse Drug Use: Yes Special: Cocaine Comment: history of cocaine use Sexual Activity: None Other Topics Concern None Social History Narrative Lives at [facility]. Allergies: Allergies Allergen Reactions Erythromycin Metronidazole Penicillins [...] TABS Take 2,000 Units by mouth Daily. [place] Starch POWD by Does not apply route [...] mg onto the skin every 24 hours. [place]-3 Fatty Acids (SEA-OMEGA 30) 1200 MG [...] 327.23 1 each 0 Respiratory Therapy Supplies [facility] Please contact Dr. Lainez's office if oxygen [...] kg (205 lb 11.2 oz) | B AK 41.52 kg/m2 | SpO2 90% RA General [...] sounds are diminished bilaterally, no wheezes, scrap dealer ckles or rhonchi Chest Wall: No deformity [...] Range: 0-100 6 eGFR, External Latest Range: [id number] (A) Immunization History Administered Date(s) Administered [...] BiPAP and using nightly with good control. Vernon pryor with the sleep center. 6. Tobacco use [...] made to ensure accuracy; however, inadvertent computerized computing tutor errors may be pre sent. documented in [...] | | | | | [place] [address] | | | | | | [phone] | | | | | | | | +--------+---------+ + + + | 04/30/ | Office | Sleep Medicine | Jacky Calderon PA | | 2019 | Visit | | [address] | | | | | | [place] | | | | | | [address] | | | | | | | [...] Performed At | + + + | [facility] ECHOCARDIOGRAM REPORT | [place] | | STUDY DATE: 03/26/2015 PATIENT NAME: Margarita Rowley : | [facility] | | 1965 PCP: Physician No [facility] | | HISTORY/DIAGNOSIS: Pulmonary HTN [...] Signed by: Derick Strong, | | | [facility] 03/26/2015 13:52 Human Resources Officer: Maciel Silva, | | | RDCS, RDMS, RVT | | + + + + + + + + | Performing | Address | City/State/Zipcode | Phone Number | | Organization | | | | + + + + + | [facility] [facility] | [address] | [place], [place] | [phone] | | [facility] | | [address] | | | - IMAGING | | [...]
--- OUTSIDE RECORDS SUMMARY | ~2020-03-24 | XMS | Encounter Summary ---
Demographics + + + | Address | [address] | | | [place] [address] | + + + | Home Phone [...] | Organization | [facility] | | | and [place] | + + + | Address | Unknown | + + + | Phone | Unavailable | + + + Support + + + + + | Name | Relationship | Address | Phone | + + + + + | [employer] | ECON | [id number] | | | | | Unknown | | + + + + + Care Team Providers + +------+ + | Care Filler And Trimmer Name | Role | Phone | + +------+ + PCP | Unavailable | + +------+ + Encounter Details +--------+ + + + + | Date | Type | Department | Care Team | Description | +--------+ + + + + | 04/06/ | Hospital | [facility] | Conversion | | | 2011 | Encounter | [facility] | Transaction, | | | | | [facility] | Provider Unknown | | | | | [facility], | | | | | | [place] [address] | (Fax) | | | | | [phone] | | | +--------+ + + + [...] | | | | | [place] [address] | | | | | | [phone] | | | | | | | [...]
--- OUTSIDE RECORDS SUMMARY | ~2020-03-24 | XMS | Encounter Summary ---
Demographics + + + | Address | [address] | | | [place] [address] | + + + | Home Phone [...] [facility] | | | and [place] | + + + | Address | Unknown | + + + | Phone | Unavailable | + + + Support + + + + + | Name | Relationship | Address | Phone | + + + + + | [employer] | ECON | [id number] | | | | | Unknown | | + + + + + Care Team Providers + +------+ + | Care Highway Research Engineer Name | Role | Phone | [...] [place] | | | | | | [address] | (Fax) | | | | | [phone] | | | +--------+ + + + [...] | | | | | [place] [address] | | | | | | [phone] | | | | | | | | +--------+---------+ + + + | 04/30/ | Office | Sleep Medicine | Jacky Calderon PA | | | 2020 | Visit | | [address] | | | | | | [place] | | | | | | [address] | | | | | | | | +--------+---------+ + + + documented as of this encounter Visit Diagnoses Not on filedocumented in this encounter"
--- OUTSIDE RECORDS SUMMARY | ~2020-03-24 | XMS | Encounter Summary ---
Demographics + + + | Address | [address] | | | [place] [address] | + + + | Home Phone [...] | Organization | [facility] | | | and [place]am[place] | + + + | Address | Unknown | + + + | Phone | Unavailable | + + + Support + + + + + | Name | Relationship | Address | Phone | + + + + + | [employer] | ECON | [id number] | | | | | Unknown | | + + + + + Care Team Providers + +------+ + | Care Supervisor Real Estate Office Name | Role | Phone | + +------+ + | Gela Trimble SPIRAL WINDING MACHINE HELPER | PCP | | + +------+ + [...] | Primary | Offenstein, | [address] | | | | | pulmonary | Vera B, | [place], | | | | | hypertension | MD [address] | [place] | | | | | (HCC) | [address] | [address] | | | | | Procedures | [place], | Phone: | | | | | ECHO | [place] [address] | [phone] | | | | | Complete | | Fax: | | | | | APPT | | [phone] | | | | | 03/18/14. | [...] | Primary | Offenstein, | [address] | | | | | pulmonary | Vera B, | [place], | | | | | hypertension | MD [address] | [place] | | | | | ([facility]) | [address] | [address] | | | | | Procedures | [place], | Phone: | | | | | ECHO | [place] [address] | [phone] | | | | | Complete | | Fax: | | | | | APPT | | [phone] | | | | | 03/18/14. | | | | | | | DEFERRED T0 | | | | | | | 03/01/14 | | | +--------+--------+ + + + + Encounter Details +--------+ + + + + | Date | Type | Department | Care Team | Description | +--------+ + + + + | 03/12/ | Hospital | [facility] | Offenstein, | Primary pulmonary | | 2013 | Encounter | [facility] E[facility] [address] | Vera Farrar MD | hypertension | | | | [address] | Maciel Silva, | | | | | [place] [address] | Technologist | | | | | [phone] | | | +--------+ + + + [...] + + + +---------+ + + | [place] Starch POWD | by Does not apply [...] + + + +---------+ + + | [place]-3 Fatty | Take by mouth. | | [...] 08/06/20 | | | Therapy Supplies | [facility]'s office | | | 13 | [...] | | | | | [place] [address] | | | | | | [phone] | | | | | | | | +--------+---------+ + + + | 04/30/ | Office | Sleep Medicine | Jacky Calderon PA | | | 2020 | Visit | | [address] | | | | | | [place] | | | | | | [address] | | | | | | | [...] Performed At | + + + | [facility] ECHOCARDIOGRAM REPORT | [place] | | STUDY DATE: 03/12/2014 PATIENT NAME: Margarita Rowley : | [facility] | | 1965 PCP: Gela Trimble [facility] [place] | | HISTORY/DIAGNOSIS: PULM HTN A transthoracic [...] PhD FACC 03/12/2014 8:38 | | | Retrofit Installer: Hung Caro, TIRSO, RVT, RDMS | | + + + + + | Procedure Note | + + | Roberto Salguero MD - 03/12/2014 6:[address] [facility] | | CENTERECHOCARDIOGRAM REPORTSTUDY DATE: 03/12/2014PATIENT NAME: Margarita MooreB: | | 1965MRN: [id number]: Gela DayINICAL HISTORY/DIAGNOSIS: PULM HTNA | | [...] | mmHgLA volume: 34 mLLA index: 18 mL/c9Uroaiq Inflow DT: 290 msIVRT: 117 msValsalva: | | YES, TO NO EFFECTPWDTI S wave: 12.0 cm/sPWDTI E wave: 15.5 cm/sPWDTI A wave: 24.1 | | cm/sE/A Ratio: 0.643E/E Ratio: Signed by: Artie Salguero MD PhD FACC 03/12/2014 | | 8:38 Retrofit Installer: Hung Caro, RDCS, RVT, RDMS | |Mitral [...] 03/12/2014 8:38 | | | | | |Retrofit Installer: Hung Caro, RDCS, RVT, RDMS | + + + + + + + | Performing | Address | City/State/Zipcode | Phone Number | | Organization | | | | + + + + + | [facility] | [address] | [place] | [phone] | | [facility] | | [address] | | | - IMAGING | | | | + + + + + documented in this encounter Visit Diagnoses + + | Diagnosis | + + | Primary pulmonary hypertension | + + documented in this encounter"
--- OUTSIDE RECORDS SUMMARY | ~2020-03-24 | XMS | Encounter Summary ---
Demographics + + + | Address | [address] | | | [place] [address] | + + + | Home Phone [...] + | Organization | [facility] | | | and [place] | + + + | Address | Unknown | + + + | Phone | Unavailable | + + + Support + + + + + | Name | Relationship | Address | Phone | + + + + + | [employer] | ECON | [phone] | | | | | Unknown | | + + + + + Care Team Providers + +------+ + | Care Secondary School Teacher Librarian Name | Role | Phone | + [...] | | | | [place] | [address] | | | | | [place] | [phone] | | | | | [address] | | | | | | [phone] | | | +--------+ + + + [...] | | | | | [place] [address] | | | | | | [phone] | | | | | | | | +--------+---------+ + + + | 04/30/ | Office | Sleep Medicine | Jacky Calderon PA | | | 2019 | Visit | | [address] | | | | | | [place] | | | | | | [phone] | | | | | | | | +--------+---------+ + + + documented as of this encounter Visit Diagnoses Not on filedocumented in this encounter"
--- OUTSIDE RECORDS SUMMARY | ~2020-03-24 | XMS | Encounter Summary ---
Demographics + + + | Address | [address] | | | [place] [address] | + + + | Home Phone [...] | Organization | [facility] | | | and [place] | + + + | Address | Unknown | + + + | Phone | Unavailable | + + + Support + + + + + | Name | Relationship | Address | Phone | + + + + + | [employer] | ECON | [phone] | | | | | Unknown | | + + + + + Care Team Providers + +------+ + | Care Dredge Pump Operator Name | Role | Phone | + +------+ + | Yuni Shrestha | PCP | | + +------+ + Encounter Details +--------+ + + + + | Date | Type | Department | Care Team | Description | +--------+ + + + + | 01/04/ | Orders Only | [facility] [place] | [facility], | Dysphagia | | 2016 | | GASTROENTEROLOGY | BRITTANY Maddox [address] | | | | | [address] [place] | [place], [place] [address] | | | | | [address] [place], [place] | [place], [place] | | | | | [address] | [address] | | | | | [phone] | | | +--------+ + + + [...] | | | | | [place] [address] | | | | | | [phone] | | | | | | | | +--------+---------+ + + + | 04/30/ | Office | Sleep Medicine | Jacky Calderon PA | | | 2019 | Visit | | [address] | | | | | | [place] | | | | | | [address] | | | | | | | | +--------+---------+ + + + documented as of this encounter Visit Diagnoses + + | Diagnosis | + + | Dysphagia Dysphagia, unspecified | + + documented in this encounter"
--- OUTSIDE RECORDS SUMMARY | ~2020-03-24 | XMS | Encounter Summary ---
Demographics + + + | Address | [address] | | | [place] [address] | + + + | Home Phone [...] + | Organization | [facility] | | | and [place] | + + + | Address | Unknown | + + + | Phone | Unavailable | + + + Support + + + + + | Name | Relationship | Address | Phone | + + + + + | [employer] | ECON | [phone] | | | | | Unknown | | + + + + + Care Team Providers + +------+ + | Care Chimney Repairer Name | Role | Phone | [...] | | pulmonary | ROSELIA MATTHEWS | [place], [place] | | | | | disease, | [place], | [address] | | | | | unspecified | [place] | Phone: | | | | | (HCC) | [address] | [phone] | | | | | Procedures | Phone: | Fax: | | | | | OFFICE VISIT | [phone] | [phone] | | | | | EXTENDED | Fax: | | | | | | | [phone] | | +--------+--------+ + + + + Encounter Details +--------+---------+ + + + | Date | Type | Department | Care Team | Description | +--------+---------+ + + + | 01/31/ | Office | [facility] | Scout Arthur, | Primary pulmonary | | 2019 | Visit | PULMONARY [address] | MD [address] | hypertension (HCC) | | | | [place], | [place] [address] | (Primary Dx); | | | | [place] [address] | [phone] | Hypoxia | | | | [phone] | | | +--------+---------+ + + + [...] Scout Arthur MD - 01/31/2019 2:00 PM [id number] former smoker with primar y pulmonary hypertension [...] so we are asking [facility] to give her a new BiPAP [...] is a note from Dr. Huang in [place] that CMP, CBC, and ESR w ere [...] BiPAP equipme nt. We spent 20 minutes, [id number], at least half in counseling. Word processing [...] | | | | | [place] [address] | | | | | | [phone] | | | | | | | | +--------+---------+ + + + | 04/30/ | Office | Sleep Medicine | Jacky Calderon PA | | | 2019 | Visit | | [address] | | | | | | [place] | | | | | | [address] | | | | | | | | +--------+---------+ + + + documented as of this encounter Visit Diagnoses + + | Diagnosis | + + | Primary pulmonary hypertension (HCC) - Primary Primary pulmonary hypertension | + + | Hypoxia Hypoxemia | + + documented in this encounter
--- OUTSIDE RECORDS SUMMARY | ~2020-03-24 | XMS | Encounter Summary ---
Demographics + + + | Address | [address] | | | [place] [address] | + + + | Home Phone [...] + + + | Author | [facility] | + + + | Organization | [facility] | + + + | Address | Unknown | + + + | Phone | Unavailable | + + + Support + + +---------+ + | Name | Relationship | Address | Phone | + + +---------+ + | Lidia Thibodeaux | ECON | Unknown | | + + +---------+ + Care Team Providers + +------+ + | Care Hyperbaric Technologist Name | Role | Phone | + [...] [address] | | | | | | [place], [place] | | | | | | [address] | | | +--------+ + + + [...]
--- OUTSIDE RECORDS SUMMARY | ~2020-03-24 | XMS | Encounter Summary ---
Demographics + + + | Address | [address] | | | [place] [address] | + + + | Home Phone [...] + | Organization | [facility] | | | and [place] | + + + | Address | Unknown | + + + | Phone | Unavailable | + + + Support + + + + + | Name | Relationship | Address | Phone | + + + + + | [employer] | ECON | [id number] | | | | | Unknown | | + + + + + Care Team Providers + +------+ + | Care Exerciser Name | Role | Phone | + [...] | | | | ABDIRASHID BROTHERS | [place], [place] | | | | | [place] | [address] | | | | | [address] | [phone] | | | | | [phone] | | | +--------+ + + + [...] | | | | | [place] [address] | | | | | | [phone] | | | | | | | | +--------+---------+ + + + | 04/30/ | Office | Sleep Medicine | Jacky Calderon PA | | | 2020 | Visit | | [address] | | | | | | [place] | | | | | | [address] | | | | | | | | +--------+---------+ + + + documented as of this encounter Visit Diagnoses Not on filedocumented in this encounter"
--- OUTSIDE RECORDS SUMMARY | ~2020-03-24 | XMS | Encounter Summary ---
Demographics + + + | Address | [address] | | | [place] [address] | + + + | Home Phone [...] + + + | Author | [facility] | | | and [place] | + + + | Organization | [facility] | | | and [place] | + + + | Address | Unknown | + + + | Phone | Unavailable | + + + Support + + + + + | Name | Relationship | Address | Phone | + + + + + | [employer] | ECON | [id number] | | | | | Unknown | | + + + + + Care Team Providers + +------+ + | Care Hspt Tutor Name | Role | Phone | [...] | | | | ABDIRASHID BROTHERS | [place], [place] | | | | | [place] | [address] | | | | | [address] | [phone] | | | | | [phone] | | | +--------+ + + + [...] | | | | | [place] [address] | | | | | | [phone] | | | | | | | | +--------+---------+ + + + | 04/30/ | Office | Sleep Medicine | Jacky Calderon PA | | | 2020 | Visit | | [address] | | | | | | [place] | | | | | | [address] | | | | | | | | +--------+---------+ + + + documented as of this encounter Visit Diagnoses Not on filedocumented in this encounter"
--- OUTSIDE RECORDS SUMMARY | ~2020-03-24 | XMS | Encounter Summary ---
Demographics + + + | Address | [address] | | | [place] [address] | + + + | Home Phone [...] Organization | [facility] | | | and [place] | + + + | Address | Unknown | + + + | Phone | Unavailable | + + + Support + + + + + | Name | Relationship | Address | Phone | + + + + + | [employer] | ECON | [id number] | | | | | Unknown | | + + + + + Care Team Providers + +------+ + | Care Veterinarian Helper Name | Role | Phone | [...] | 2015 | | GASTROENTEROLOGY | Varsha CHRONIC MANAGER [address] | | | | | [address] [place] | [place], [place] [address] | | | | | [address] [place], [place] | [place], [place] | | | | | [address] | [address] | | | | | [phone] | | | +--------+--------+ + + + [...] | | | | | [place] [address] | | | | | | [phone] | | | | | | | [...]
--- OUTSIDE RECORDS SUMMARY | ~2020-03-24 | XMS | Encounter Summary ---
Demographics + + + | Address | [address] | | | [place] [address] | + + + | Home Phone [...] Organization | [facility] | | | and [place] | + + + | Address | Unknown | + + + | Phone | Unavailable | + + + Support + + + + + | Name | Relationship | Address | Phone | + + + + + | [employer] | ECON | [id number] | | | | | Unknown | | + + + + + Care Team Providers + +------+ + | Care Motor Vehicle Field Representative Name | Role | Phone | [...] | oximetry) | | | | [place], | | | | | | [place] [address] | | | | | | [phone] | | | +--------+ + + + [...] | | | | | [place] [address] | | | | | | [phone] | | | | | | | | +--------+---------+ + + + | 04/30/ | Office | Sleep Medicine | Jacky Calderon PA | | | 2019 | Visit | | [address] | | | | | | [place] | | | | | | [address] | | | | | | | [...]
--- OUTSIDE RECORDS SUMMARY | ~2020-03-24 | XMS | Encounter Summary ---
Demographics + + + | Address | [address] | | | [place] [address] | + + + | Home Phone [...] + | Organization | [facility] | | | and [place] | + + + | Address | Unknown | + + + | Phone | Unavailable | + + + Support + + + + + | Name | Relationship | Address | Phone | + + + + + | [employer] | ECON | [id number] | | | | | Unknown | | + + + + + Care Team Providers + +------+ + | Care Economic Historian Name | Role | Phone | [...] + | 05/22/ | Office | [facility] | Jacky Calderon PA | Primary central | | 2015 | Visit | SLEEP DISORDER [address] | [address] | sleep apnea (Primary | | | | [address] [place] | [place] | Dx) | | | | [place] [address] | [address] | | | | | [phone] | | | +--------+---------+ + + + [...] was: 05/21/2014 date of polysomnography: 03/13/2013 at [facility] AHI: 64.2 O2%: n/a Machine type: Respironics BiPAP Auto with ResMed Quattro FX full face mask obtained from: [employer] in [place] pressure: 16/5 cm with backup rate of [...] year, sooner prn. Fifteen minutes were spent heza-py-xelc, with the majority of time spent in [...] | | | | | [place] [address] | | | | | | [phone] | | | | | | | | +--------+---------+ + + + | 04/30/ | Office | Sleep Medicine | Jacky Calderon PA | | | 2019 | Visit | | [address] | | | | | | [place] | | | | | | [id number] | | | | | | | | +--------+---------+ + + + documented as of this encounter Visit Diagnoses + + | Diagnosis | + + | Primary central sleep apnea - Primary | + + documented in this encounter"
--- OUTSIDE RECORDS SUMMARY | ~2020-03-24 | XMS | Encounter Summary ---
Demographics + + + | Address | [address] | | | [place] [address] | + + + | Home Phone [...] | Organization | [facility] | | | and [place] | + + + | Address | Unknown | + + + | Phone | Unavailable | + + + Support + + + + + | Name | Relationship | Address | Phone | + + + + + | Projects [employer] | E[place] | [id number] | | | | | Unknown | | + + + + + Care Team Providers + +------+ + | Care Strategy Consultant Name | Role | Phone | + +------+ + | Gela Trimble VALVE INSERTER | PCP | | + +------+ + [...] | Primary | [place], | [address] | | | | | pulmonary | Vera B, | [place], | | | | | hypertension | MD [address] | [place] | | | | | (HCC) | [address] | [address] | | | | | Procedures | [place], | Phone: | | | | | ECHO | [place] [address] | [phone] | | | | | Complete | | Fax: | | | | | | | [phone] | +--------+--------+ + + + + Reason [...] | Primary | [place], | [address] | | | | | pulmonary | Vera B, | [place], | | | | | hypertension | MD [address] | [place] | | | | | ([facility]) | [address] | [address] | | | | | Procedures | [place], | Phone: | | | | | ECHO | [place] [address] | [phone] | | | | | Complete | | Fax: | | | | | | | [phone] | +--------+--------+ + + + + Encounter Details +--------+ + + + + | Date | Type | Department | Care Team | Description | +--------+ + + + + | 09/11/ | Hospital | [facility] | [place], | Primary pulmonary | | 2013 | Encounter | MED CTR ECHO [address] | Vera Farrar MD | hypertension | | | | [address] | Taya Kirby, | | | | | [place] [address] | Technologist | | | | | [phone] | | | +--------+ + + + [...] + + + +---------+ + + | [place] Starch POWD | by Does not apply [...] + + + +---------+ + + | [place]-3 Fatty | Take by mouth. | | [...] | | | | | [place] [address] | | | | | | [phone] | | | | | | | | +--------+---------+ + + + | 04/30/ | Office | Sleep Medicine | Jacky Calderon PA | | | 2019 | Visit | | [address] | | | | | | [place] | | | | | | [address] | | | | | | | [...] At | + + + | [facility] ECHOCARDIOGRAM REPORT | THAYER | | STUDY DATE: 09/11/2014 PATIENT NAME: Margarita Rowley : | [facility] | | 1965 PCP: Gela Trimble NP | [facility] | | CLINICAL HISTORY/DIAGNOSIS: Pulmonary hypertension [...] [facility] 09/11/2014 10:45 | | | It Sales Representative: Hung Caro, RDCS, RVT, RDMS | | + + + + + | Procedure Note | + + | Roberto Salguero MD - 09/12/2014 9:12 AM [facility] | | CENTERECHOCARDIOGRAM REPORTSTUDY DATE: 09/11/2014PATIENT NAME: Margarita Vora: | | 1965MRN: [id number]: Gela Trimble, [facility]: | | Pulmonary hypertensionA transthoracic [...] PP mmHgLA volume: 30 mLLA index: 16 mL/v2Zdhhet Inflow DT: 272 | | msIVRT: 110 msValsalva: Not neededPWDTI S wave: 7.2 cm/sPWDTI E wave: 8.0 cm/sPWDTI | | A wave: 10.4 cm/sE/A Ratio: 0.769E/E Ratio: 10.63Signed by: Artie Salguero MD | | PhD FACC 09/11/2014 10:45 It Sales Representative: Hung Caro, RDCS, RVT, RDMS | |Tricuspid [...] 09/11/2014 10:45 | | | | | |It Sales Representative: Hung Caro, RDCS, RVT, RDMS | + + + + + + + | Performing | Address | City/State/Zipcode | Phone Number | | Organization | | | | + + + + + | [facility] | [address] | [place] | [phone] | | [facility] | | [address] | | | - IMAGING | | [...]
--- OUTSIDE RECORDS SUMMARY | ~2020-03-24 | XMS | Encounter Summary ---
Demographics + + + | Address | [address] | | | [place] [address] | + + + | Home Phone [...] Organization | [facility] | | | and [place] | + + + | Address | Unknown | + + + | Phone | Unavailable | + + + Support + + + + + | Name | Relationship | Address | Phone | + + + + + | [employer] | ECON | [id number] | | | | | Unknown | | + + + + + Care Team Providers + +------+ + | Care Newspaper Deliverer Name | Role | Phone | + [...] | sleep apnea); | | | | [place], | | Hypoxemia | | | | [place] [address] | | | | | | [phone] | | | +--------+ + + + [...] | | | | | [place] [address] | | | | | | [phone] | | | | | | | | +--------+---------+ + + + | 04/30/ | Office | Sleep Medicine | Jacky Calderon PA | | | 2019 | Visit | | [address] | | | | | | [place] | | | | | | [phone] | | | | | | | | +--------+---------+ + + + documented as of this encounter Visit Diagnoses + + | Diagnosis | + + | GLORIA (obstructive sleep apnea) Obstructive sleep apnea (adult) (pediatric) | + + | Hypoxemia | + + documented in this encounter"
--- OUTSIDE RECORDS SUMMARY | ~2020-03-24 | XMS | Encounter Summary ---
Demographics + + + | Address | [address] | | | [place] [address] | + + + | Home Phone [...] + | Organization | [facility] | | | and [place] | + + + | Address | Unknown | + + + | Phone | Unavailable | + + + Support + + + + + | Name | Relationship | Address | Phone | + + + + + | [employer] | ECON | [id number] | | | | | Unknown | | + + + + + Care Team Providers + +------+ + | Care Principal Product Manager Name | Role | Phone | [...] | | | | ABDIRASHID BROTHERS | [place], [place] | | | | | [place] | [address] | | | | | [address] | [phone] | | | | | [phone] | | | +--------+ + + + [...] | | | | | [place] [address] | | | | | | [phone] | | | | | | | | +--------+---------+ + + + | 04/30/ | Office | Sleep Medicine | Jacky Calderon PA | | | 2020 | Visit | | [address] | | | | | | [place] | | | | | | [address] | | | | | | | | +--------+---------+ + + + documented as of this encounter Visit Diagnoses Not on filedocumented in this encounter"
--- OUTSIDE RECORDS SUMMARY | ~2020-03-24 | XMS | Encounter Summary ---
Demographics + + + | Address | [address] | | | [place] [address] | + + + | Home Phone [...] | [facility] | | | and [place] | + + + | Address | Unknown | + + + | Phone | Unavailable | + + + Support + + + + + | Name | Relationship | Address | Phone | + + + + + | [employer] | ECON | [id number] | | | | | Unknown | | + + + + + Care Team Providers + +------+ + | Care Nozzleman Name | Role | Phone | + [...] | | | [place] | [address] | | | | | [address] | [phone] | | | | | [phone] | | | +--------+ + + + [...] | | | | | [place] [address] | | | | | | [phone] | | | | | | | | +--------+---------+ + + + | 04/30/ | Office | Sleep Medicine | Jacky Calderon PA | | | 2020 | Visit | | [address] | | | | | | [place] | | | | | | [address] | | | | | | | | +--------+---------+ + + + documented as of this encounter Visit Diagnoses Not on filedocumented in this encounter"
--- OUTSIDE RECORDS SUMMARY | ~2020-03-24 | XMS | Encounter Summary ---
Demographics + + + | Address | [address] | | | [place] [address] | + + + | Home Phone [...] + + + | Author | [facility] | | | and [place] | + + + | Organization | [facility] | | | and [place] | + + + | Address | Unknown | + + + | Phone | Unavailable | + + + Support + + + + + | Name | Relationship | Address | Phone | + + + + + | [employer] | ECON | [id number] | | | | | Unknown | | + + + + + Care Team Providers + +------+ + | Care Flight Hostess Name | Role | Phone | + +------+ + PCP | Unavailable | + +------+ + Encounter Details +--------+ + + + + | Date | Type | Department | Care Team | Description | +--------+ + + + + | 01/10/ | Hospital | [place] | Caesar Buitrago | | | 2008 | Encounter | HOSPITAL MED SURG | [address] | | | | | [address] [place] | [facility], | | | | | [place] | [place] [address] | | | | | [address] | [phone] | | | | | [phone] | | | +--------+ + + + [...] | | | | | [place] [address] | | | | | | [phone] | | | | | | | | +--------+---------+ + + + | 04/30/ | Office | Sleep Medicine | Jacky Calderon PA | | | 2020 | Visit | | [address] | | | | | | [place] | | | | | | [address] | | | | | | | | +--------+---------+ + + + documented as of this encounter Visit Diagnoses Not on filedocumented in this encounter"
--- OUTSIDE RECORDS SUMMARY | ~2020-03-24 | XMS | Encounter Summary ---
Demographics + + + | Address | [address] | | | [place] [address] | + + + | Home Phone | | + + + | Preferred Language | Unknown | + + + | Marital Status | Single | + + + | Congregation Affiliation | NRP | + + + | Race | White | + + + | Ethnic Group | Not or | + + + Author + + + | Author | [facility] | + + + | Organization | [facility] | + + + | Address | Unknown | + + + | Phone | Unavailable | + + + Support + + +---------+ + | Name | Relationship | Address | Phone | + + +---------+ + | Lidia Thibodeaux | ECON | Unknown | | + + +---------+ + Care Team Providers + +------+ + | Care Atomizer Assembler Name | Role | Phone | + +------+ + | Yuni Shrestha | PCP | | + +------+ + Encounter Details +--------+ + + + + | Date | Type | Department | Care Team | Description | +--------+ + + + + | 05/17/ | Test Specialist | Pulmonary & | Oneal Morejon MD | | | 2012 | | Critical Care | [address] | | | | | Medicine at | [facility], | | | | | [facility] | [place] [address] | | | | | [address] | [phone] | | | | | [address] [facility] | | | | | | [place], [address] Floor | | | | | | [place], [place] | | | | | | [address] | | | | | | [phone] | | | +--------+ + + + [...]
--- OUTSIDE RECORDS SUMMARY | ~2020-03-24 | XMS | Encounter Summary ---
Demographics + + + | Address | [address] | | | [place] [address] | + + + | Home Phone [...] Organization | [facility] | | | and [place] | + + + | Address | Unknown | + + + | Phone | Unavailable | + + + Support + + + + + | Name | Relationship | Address | Phone | + + + + + | [employer] | ECON | [id number] | | | | | Unknown | | + + + + + Care Team Providers + +------+ + | Care Service Associate Name | Role | Phone | [...] | hypertension (HCC) | | | | [place], | | | | | | [place] [address] | | | | | | [phone] | | | +--------+ + + + [...] | | | | | [place] [address] | | | | | | [phone] | | | | | | | | +--------+---------+ + + + | 04/30/ | Office | Sleep Medicine | Jacky Calderon PA | | | 2020 | Visit | | [address] | | | | | | [place] | | | | | | [address] | | | | | | | | +--------+---------+ + + + documented as of this encounter Visit Diagnoses + + | Diagnosis | + + | Pulmonary hypertension (HCC) Other chronic pulmonary heart diseases | + + documented in this encounter"
--- OUTSIDE RECORDS SUMMARY | ~2020-03-24 | XMS | Encounter Summary ---
Demographics + + + | Address | [address] | | | [place] [address] | + + + | Home Phone [...] Organization | [facility] | | | and [place] | + + + | Address | Unknown | + + + | Phone | Unavailable | + + + Support + + + + + | Name | Relationship | Address | Phone | + + + + + | [employer] | ECON | [id number] | | | | | Unknown | | + + + + + Care Team Providers + +------+ + | Care Trade Facilitator Name | Role | Phone | + [...] + + | 11/20/ | Office | [facility] | Jacky Calderon PA | Primary central | | 2014 | Visit | SLEEP DISORDER [address] | [address] | sleep apnea (Primary | | | | [address] | [place], [place] | Dx) | | | | [place] [address] | [address] | | | | | [phone] | | | +--------+---------+ + + + [...] Quattro FX full face mask obtained from: [facility] pressure: 18/14 cm 19/5 cm Nights using BiPAP: 34/35 average usage (all nights): 6:27 6:15 average usage (nights used): 6:47 6:26 AHI: 11.0 62.5 Jessie comes in for BiPAP compliance. She was referred by Dr. Lainez to help with her pr oblems with leaks and her apnea not being completely controlled. We had [facility] in [place] change her pressure to the original prescription [...] study, sooner prn. Fifteen minutes were spent joei-jg-evow, with the majority of time spent in [...] | | | | | [place] [address] | | | | | | [phone] | | | | | | | [...]
--- OUTSIDE RECORDS SUMMARY | ~2020-03-24 | XMS | Encounter Summary ---
Demographics + + + | Address | [address] | | | [place] [address] | + + + | Home Phone [...] | Organization | [facility] | | | and [place] | + + + | Address | Unknown | + + + | Phone | Unavailable | + + + Support + + + + + | Name | Relationship | Address | Phone | + + + + + | [employer] | ECON | [id number] | | | | | Unknown | | + + + + + Care Team Providers + +------+ + | Care Liquefaction Supervisor Name | Role | Phone | [...] + + | 06/14/ | Office | [facility] | Jacky Calderon PA | Primary central | | 2018 | Visit | SLEEP DISORDER 401 | [address] | sleep apnea (Primary | | | | [address] [place] | [place] | Dx) | | | | [place] [address] | [address] | | | | | [phone] | | | +--------+---------+ + + + [...] PDT1. Go to [facility] [place] to get: -Respironics AmaraView full face mask [...] visit: 07/26/2017 date of polysomnography: 03/13/2013 at [facility] AHI: 64.2 O2%: n/a Machine type: Respironics BiPAP Auto Mask type: ResMed Quattro FX full face mask DME: [facility] in [place] pressure: 16/5 cm with backup rate of [...] full face mask. She may consider using [facility], if [facility] in [place] does not get her the correct mask. [...] Assessment: Problem #1: PRIMARY CENTRAL SLEEP APNEA ([id number]) This is controlled with BiPAP and oxygen [...] | | | | | [place] [address] | | | | | | [phone] | | | | | | | | +--------+---------+ + + + | 04/30/ | Office | Sleep Medicine | Jacky Calderon PA | | | 2019 | Visit | | [address] | | | | | | [place] | | | | | | [address] | | | | | | | | +--------+---------+ + + + documented as of this encounter Visit Diagnoses + + | Diagnosis | + + | Primary central sleep apnea - Primary | + + documented in this encounter"
--- OUTSIDE RECORDS SUMMARY | ~2020-03-24 | XMS | Encounter Summary ---
Demographics + + + | Address | [address] | | | [place] [address] | + + + | Home Phone [...] + | Organization | [facility] | | | and [place] | + + + | Address | Unknown | + + + | Phone | Unavailable | + + + Support + + + + + | Name | Relationship | Address | Phone | + + + + + | [employer] | ECON | [id number] | | | | | Unknown | | + + + + + Care Team Providers + +------+ + | Care Automotive Worker Name | Role | Phone | [...] | | | | ABDIRASHID BROTHERS | [place], [place] | | | | | [place] | [address] | | | | | [address] | [phone] | | | | | [phone] | | | +--------+ + + + [...] | | | | | [place] [address] | | | | | | [phone] | | | | | | | | +--------+---------+ + + + | 04/30/ | Office | Sleep Medicine | Jacky Calderon PA | | | 2020 | Visit | | [address] | | | | | | [place] | | | | | | [address] | | | | | | | | +--------+---------+ + + + documented as of this encounter Visit Diagnoses Not on filedocumented in this encounter"
--- OUTSIDE RECORDS SUMMARY | ~2020-03-24 | XMS | Encounter Summary ---
Demographics + + + | Address | [address] | | | [place] [address] | + + + | Home Phone [...] | [facility] | | | and [place] | + + + | Address | Unknown | + + + | Phone | Unavailable | + + + Support + + + + + | Name | Relationship | Address | Phone | + + + + + | [employer] | ECON | [id number] | | | | | Unknown | | + + + + + Care Team Providers + +------+ + | Care Insurance Loss Control Surveyor Name | Role | Phone | + [...] | | | | | | [place] [address] | | | | | | [phone] | | | +--------+ + + + [...] | | | | | [place] [address] | | | | | | [phone] | | | | | | | | +--------+---------+ + + + | 04/30/ | Office | Sleep Medicine | Jacky Calderon PA | | | 2019 | Visit | | [address] | | | | | | [place] | | | | | | [address] | | | | | | | | +--------+---------+ + + + documented as of this encounter Visit Diagnoses Not on filedocumented in this encounter"
--- OUTSIDE RECORDS SUMMARY | ~2020-03-24 | XMS | Encounter Summary ---
Demographics + + + | Address | [address] | | | [place] [address] | + + + | Home Phone [...] + | Organization | [facility] | | | and [place] | + + + | Address | Unknown | + + + | Phone | Unavailable | + + + Support + + + + + | Name | Relationship | Address | Phone | + + + + + | [employer] | ECON | [id number] | | | | | Unknown | | + + + + + Care Team Providers + +------+ + | Care Records Management Director Name | Role | Phone | [...] RN | apnea | | | | [place], | | | | | | [place] [address] | | | | | | [phone] | | | +--------+ + + + [...] | | | | | [place] [address] | | | | | | [phone] | | | | | | | | +--------+---------+ + + + | 04/30/ | Office | Sleep Medicine | Jacky Calderon PA | | | 2020 | Visit | | [address] | | | | | | [place] | | | | | | [address] | | | | | | | | +--------+---------+ + + + documented as of this encounter Visit Diagnoses + + | Diagnosis | + + | Obstructive sleep apnea Obstructive sleep apnea (adult) (pediatric) | + + documented in this encounter"
--- OUTSIDE RECORDS SUMMARY | ~2020-03-24 | XMS | Clinical Summary ---
Demographics + + + | Address | [address] | | | [place] [address] | + + + | Home Phone [...] | Organization | [facility] | | | and [place] | + + + | Address | Unknown | + + + | Phone | Unavailable | + + + Support + + + + + | Name | Relationship | Address | Phone | + + + + + | Projects [employer] | ECON | [id number] | | | | | Unknown | | + + + + + Care Team Providers + +------+ + | Care Ambulatory Care Name | Role | Phone | + [...] Mean [place] | | [address] mean 10Overview: -[facility] 04/2013 [facility]: FindingsBASELINE on 2L | | [...] f/u appointment with your new | | manager gaming sometime in the next 6 months. -you [...] Walk at next visit. | | Overview: -[facility] 04/2013 [facility]: FindingsBASELINE on 2L O2RA: mean [...] f/u appointment with your new | | manager gaming sometime in the next 6 months. -you [...] |Last Assessment & Plan: | |-echocardiogram at [facility]. We will talk by phone with t he results. | |-keep up the good work with walking, BIPAP use, oxygen use, and no smoking. | |-continue with your yearly flu vaccine. | |-you should have a f/u appointment with your new manager gaming sometime in the next 6 month s. [...] | | | | | [place] [address] | | | | | | [phone] | | | | | | | | +--------+---------+ + + + | 04/30/ | Office | Sleep Medicine | Jacky Calderon PA | | | 2019 | Visit | | [address] | | | | | | [place] | | | | | | [address] | | | | | | | [...] | [employer] | [facility] | [id number] | 04/30/20 | [phone] | | Medica [...] | | al/Kalpesh | | 1965 | [phone] | [place] | | | jammie | | | 5 (Home) | [address] | + +--------+ +--------+ + + Advance Directives + + + + + | Type | Date Recorded | Patient | Explanation | | | | Senior Data Developer | | + + + + + | Power of | | | | | Blending Kettle Tender | | | | + + + + + | Advance | 03/26/2015 12:35 | | | | Directive | PM | | | + + + + +
--- OUTSIDE RECORDS SUMMARY | ~2020-03-24 | XMS | Encounter Summary ---
Demographics + + + | Address | [address] | | | [place] [address] | + + + | Home Phone [...] + | Organization | [facility] | | | and [place] | + + + | Address | Unknown | + + + | Phone | Unavailable | + + + Support + + + + + | Name | Relationship | Address | Phone | + + + + + | [employer] | ECON | [id number] | | | | | Unknown | | + + + + + Care Team Providers + +------+ + | Care Route Supervisor Name | Role | Phone | + +------+ + | Yuni Shrestha | PCP | | + +------+ + Encounter Details +--------+ + + + + | Date | Type | Department | Care Team | Description | +--------+ + + + + | 11/07/ | Hospital | [facility] | [place], | Primary pulmonary | | 2016 | Encounter | MED CTR PULMONARY | Vera Farrar MD | hypertension; | | | | FUNCTION [address] | | Hypoxemia | | | | [place], | | | | | | [place] [address] | | | | | | [phone] | | | +--------+ + + + [...] + + + +---------+ + + | [place] Starch POWD | by Does not apply [...] + + + +---------+ + + | [place]-3 Fatty | Take by mouth. | | [...] | | | | | [place] [address] | | | | | | [phone] | | | | | | | | +--------+---------+ + + + | 04/30/ | Office | Sleep Medicine | Jacky Calderon PA | | | 2019 | Visit | | [address] | | | | | | [place] | | | | | | [address] | | | | | | | [...]
--- OUTSIDE RECORDS SUMMARY | ~2020-03-24 | XMS | Encounter Summary ---
Demographics + + + | Address | [address] | | | [place] [address] | + + + | Home Phone [...] Organization | [facility] | | | and [place] | + + + | Address | Unknown | + + + | Phone | Unavailable | + + + Support + + + + + | Name | Relationship | Address | Phone | + + + + + | [employer] | ECON | [id number] | | | | | Unknown | | + + + + + Care Team Providers + +------+ + | Care Machine Edge Bander Name | Role | Phone | + [...] RN | obstructive | | | | [place], | | pulmonary disease) | | | | [place] [address] | | (HCC) | | | | [phone] | | | +--------+ + + + [...] | | | | | [place] [address] | | | | | | [phone] | | | | | | | | +--------+---------+ + + + | 04/30/ | Office | Sleep Medicine | Jacky Calderon PA | | | 2019 | Visit | | [address] | | | | | | [place] | | | | | | [address] | | | | | | | | +--------+---------+ + + + documented as of this encounter Visit Diagnoses + + | Diagnosis | + + | COPD (chronic obstructive pulmonary disease) (HCC) Chronic airway obstruction, not | | elsewhere classified | + + documented in this encounter"
--- OUTSIDE RECORDS SUMMARY | ~2020-03-24 | XMS | Encounter Summary ---
Demographics + + + | Address | [address] | | | [place] [address] | + + + | Home Phone [...] | [facility] | | | and [place] | + + + | Address | Unknown | + + + | Phone | Unavailable | + + + Support + + + + + | Name | Relationship | Address | Phone | + + + + + | [employer] | ECON | [id number] | | | | | Unknown | | + + + + + Care Team Providers + +------+ + | Care Airplane Dispatcher Name | Role | Phone | + [...] [place], [place] | | | | | [address] | [address] | | | | | [phone] | [phone] | | | | | | | [...] | | | | | [place] [address] | | | | | | [phone] | | | | | | | [...]
--- OUTSIDE RECORDS SUMMARY | ~2020-03-24 | XMS | Encounter Summary ---
Demographics + + + | Address | [address] | | | [place] [address] | + + + | Home Phone [...] | Organization | [facility] | | | and [place]am[place] | + + + | Address | Unknown | + + + | Phone | Unavailable | + + + Support + + + + + | Name | Relationship | Address | Phone | + + + + + | [employer] [facility] | ECON | [id number] | | | | | Unknown | | + + + + + Care Team Providers + +------+ + | Care Mural Painter Name | Role | Phone | + +------+ + | Yuni Shrestha | PCP | | + +------+ + Encounter Details +--------+ + + + + | Date | Type | Department | Care Team | Description | +--------+ + + + + | 02/02/ | Hospital | [facility] | Saharaenstein, | Primary pulmonary | | 2016 | Encounter | MED CTR PULMONARY | Vera Farrar MD | hypertension | | | | FUNCTION [address] | | | | | | [place], | | | | | | [place] [address] | | | | | | [phone] | | | +--------+ + + + [...] + + + +---------+ + + | [place] Starch POWD | by Does not apply [...] + + + +---------+ + + | [place]-3 Fatty | Take by mouth. | | [...] 08/06/20 | | | Therapy Supplies | [facility]'s office | | | 13 | [...] | | | | | [place] [address] | | | | | | [phone] | | | | | | | | +--------+---------+ + + + | 04/30/ | Office | Sleep Medicine | Jacky Calderon PA | | | 2019 | Visit | | [address] | | | | | | [place] | | | | | | [id number] | | | | | | | [...]
--- OUTSIDE RECORDS SUMMARY | ~2020-03-24 | XMS | Encounter Summary ---
Demographics + + + | Address | [address] | | | [place] [address] | + + + | Home Phone [...] Organization | [facility] | | | and [place] | + + + | Address | Unknown | + + + | Phone | Unavailable | + + + Support + + + + + | Name | Relationship | Address | Phone | + + + + + | [employer] | ECON | [phone] | | | | | Unknown | | + + + + + Care Team Providers + +------+ + | Care Apprentice Stylist Name | Role | Phone | + [...] | | | Pulmonology | airway | [address] | MD | | | | | obstruction, | IRMA | | | | | | not | [address] | | | | | | elsewhere | [place], | | | | | | classified | [place] [address] | | | | | | Obstructive | Phone: | | | | | | sleep apnea | [phone] | | | | | | (adult) | Fax: | | | | | | (pediatric) | [phone] | | | | | | Procedures | | | | | | | F/U | | | +--------+--------+ + + + + Encounter Details +--------+---------+ + + + | Date | Type | Department | Care Team | Description | +--------+---------+ + + + | 12/11/ | Office | [facility] [place] | Fatou, | Primary pulmonary | | 2015 | Visit | PULMONARY [address] | Vera Farrar MD | hypertension | | | | [place], | | (Primary Dx); COPD | | | | [place] [address] | | (chronic obstructive | | | | [phone] | | pulmonary disease); | | | [...] appoin tment to see Dr. Rivera in [place] at [facility]. I will get updated labs from [place] and if we need to add anything, I will send orders to [facility]. Okay to liberalize fluid intake to [...] goes. You can find these inexpensively at [facility]. Turn the humidity up on your CPAP to 5. Ask the [facility] [employer] for a humidifier for the oxygen concentrator if you don't have one. [place] nasal saline spray in your nose several [...] is currently on 5 LPM at [facility]. She Is using no oxygen at rest [...] Diagnosis Date COPD (chronic obstructive pulmonary disease) ([facility]) moderate, FEV1 1.40 (59%) Pulmonary hypertension ([facility]) severe, class 1, class 2, class 3 Bipolar disorder ([facility]) PTSD (post-traumatic stress disorder) Osteoarthritis Obstructive sleep apnea AHI 64.2 Vitamin D deficiency GERD (gastroesophageal reflux disease) Hypothyroidism Seizure disorder ([facility]) Developmental delay Hypoxemia ([facility]) on 2L at rest, 4L with exertion Female stress incontinence Pyelonephritis Hypertension Impulse control disorder Hyperlipidemia Obesity Alcohol abuse Cocaine abuse Past Surgical History Past Surgical History Procedure Laterality Date Mouth surgery 2 teeth removed Cardiac catherization Social History: History Social History Marital Status: Single Spouse Name: N/A Number of Children: N/A Years of Education: N/A Occupational History Disabled. [employer] Social History Main Topics Smoking status: Former Smoker -- 1.00 packs/day for 20 years Types: Cigarettes Quit date: 12/10/2014 Smokeless tobacco: None Comment: restarted in August 2014, quit again 12/10/14 Alcohol Use: Yes Comment: history of abuse Drug Use: Yes Special: Cocaine Comment: history of cocaine use Sexual Activity: None Other Topics Concern None Social History Narrative Lives at [employer]. Allergies: Allergies Allergen Reactions Erythromycin Metronidazole Penicillins [...] TABS Take 2,000 Units by mouth Daily. [place] Starch POWD by Does not apply route [...] mg onto the skin every 24 hours. [place]-3 Fatty Acids (SEA-OMEGA 30) 1200 MG CAPS [...] exertion only during the daytime. Rechecked at [facility] t visit. They are not having issues with low saturations. 6. Sleep related hypoxemia - On oxygen 5L bled in to her BiPAP machine. Plan 1. Follow up appointment to see Dr. Rivera in [place] at [facility]. 2. I will get updated labs from [place] and if we need to add anything, I will send orders to [facility]. 3. Okay to liberalize fluid intake to [...] the BiPAP to 5. 7. Ask the [facility] [employer] for a humidifier for the oxygen concentrator if they don't h ave one. 8. [place] nasal saline spray in her nose several [...] made to ensure accuracy; however, inadvertent computerized site engineer errors may be pre sent. documented in t his encounter Plan of Treatment +--------+---------+ + + + | Date | Type | Specialty | Care Team | Description | +--------+---------+ + + + | 04/16/ | Office | Pulmonology | Helen Astudillo | | | 2020 | Visit | | MD Vikash [address] | | | | | | [address] | | | | | | [place] [address] | | | | | | [phone] | | | | | | | | +--------+---------+ + + + | 04/30/ | Office | Sleep Medicine | Jacky Calderon PA | | | 2019 | Visit | | [address] | | | | | | [place] | | | | | | [address] | | | | | | | [...]
--- OUTSIDE RECORDS SUMMARY | ~2020-03-24 | XMS | Encounter Summary ---
Demographics + + + | Address | [address] | | | [place] [address] | + + + | Home Phone [...] Organization | [facility] | | | and [place] | + + + | Address | Unknown | + + + | Phone | Unavailable | + + + Support + + + + + | Name | Relationship | Address | Phone | + + + + + | [employer] | ECON | [phone] | | | | | Unknown | | + + + + + Care Team Providers + +------+ + | Care Ginner Helper Name | Role | Phone | [...] Farrar MD | | | | | [place], | | | | | | [place] [address] | | | | | | [phone] | | | +--------+ + + + [...] | | | | | [place] [address] | | | | | | [phone] | | | | | | | [...]
--- OUTSIDE RECORDS SUMMARY | ~2020-03-24 | XMS | Encounter Summary ---
Demographics + + + | Address | [address] | | | [place] [address] | + + + | Home Phone [...] + | Organization | [facility] | | | and [place] | + + + | Address | Unknown | + + + | Phone | Unavailable | + + + Support + + + + + | Name | Relationship | Address | Phone | + + + + + | [employer] | ECON | [phone] | | | | | Unknown | | + + + + + Care Team Providers + +------+ + | Care Fisher Trawl Line Name | Role | Phone | + [...] | hypertension (HCC) | | | | [place], | | (Primary Dx); | | | | [place] [address] | | Obstructive sleep | | | | [phone] | | apnea; Hypoxemia; | | | [...] MD Elo Bernardo Pulmonary and Critical Care [facility] [address] [place], [address] HPI Margarita Rowley is a 48 y.o. [...] Years of Education: N/A Occupational History Disabled. [employer] Social History Main Topics Smoking status: Former Smoker -- 1.0 packs/day for 20 years Types: Cigarettes Quit date: 05/14/2013 Smokeless tobacco: None Alcohol Use: Yes Comment: history of abuse Drug Use: Yes Special: Cocaine Comment: history of cocaine use Sexually Active: None Other Topics Concern None Social History Narrative Lives at [employer]. Allergies: Allergies Allergen Reactions Erythromycin Metronidazole Penicillins [...] TABS Take 2,000 Units by mouth Daily. [place] Starch POWD by Does not apply route [...] 100 mg by mouth 2 times daily. [place]-3 Fatty Acids (SEA-OMEGA 30) 1200 MG CAPS [...] made to ensure accuracy; however, inadvertent computerized manufacturer errors may be pre sent. documented in [...] | | | | | [place] [address] | | | | | | [phone] | | | | | | | | +--------+---------+ + + + | 04/30/ | Office | Sleep Medicine | Jacky Calderon PA | | | 2019 | Visit | | [address] | | | | | | [place] | | | | | | [id number] | | | | | | | [...] | [facility] | | | | [facility] | | MEDICAL | | | [...] [address] | [place] | [phone] | | [facility] | | [address] | | | - LABORATORY | | | | + + + + + | [address] | [address] | [place], [place] | | | [facility] | | [address], [facility] | | | [...]
--- OUTSIDE RECORDS SUMMARY | ~2020-03-24 | XMS | Encounter Summary ---
Demographics + + + | Address | [address] | | | [place] [address] | + + + | Home Phone [...] | [facility] | | | and [place]am[place] | + + + | Address | Unknown | + + + | Phone | Unavailable | + + + Support + + + + + | Name | Relationship | Address | Phone | + + + + + | [employer] | ECON | [id number] | | | | | Unknown | | + + + + + Care Team Providers + +------+ + | Care Colliery Clerk Name | Role | Phone | [...] | | | | | | [place] [address] | | | | | | [phone] | | | +--------+ + + + [...] | | | | | [place] [address] | | | | | | [phone] | | | | | | | | +--------+---------+ + + + | 04/30/ | Office | Sleep Medicine | Jacky Calderon PA | | | 2020 | Visit | | [address] | | | | | | [place] | | | | | | [address] | | | | | | | [...]
--- OUTSIDE RECORDS SUMMARY | ~2020-03-24 | XMS | Encounter Summary ---
Demographics + + + | Address | [address] | | | [place] [address] | + + + | Home Phone [...] + | [employer] | ECON | [id number] | | | | | Unknown | | + + + + + Care Team Providers + +------+ + | Care Instrument Mechanic Weapons System Name | Role | Phone | + [...] | | | | | | [place] [address] | | | | | | [phone] | | | +--------+ + + + [...] | | | | | [place] [address] | | | | | | [phone] | | | | | | | | +--------+---------+ + + + | 04/30/ | Office | Sleep Medicine | Jacky Calderon PA | | | 2019 | Visit | | [address] | | | | | | [place] | | | | | | [address] | | | | | | | | +--------+---------+ + + + documented as of this encounter Visit Diagnoses Not on filedocumented in this encounter"
--- OUTSIDE RECORDS SUMMARY | ~2020-03-24 | XMS | Encounter Summary ---
Demographics + + + | Address | [address] | | | [place] [address] | + + + | Home Phone [...] | Organization | [facility] | | | and [place]am[place] | + + + | Address | Unknown | + + + | Phone | Unavailable | + + + Support + + + + + | Name | Relationship | Address | Phone | + + + + + | [employer] | ECON | [id number] | | | | | Unknown | | + + + + + Care Team Providers + +------+ + | Care Edge Beader Name | Role | Phone | + [...] | | | | A[address]ASH[address] BROTHERS | [place], [place] | | | | | [place] | [address] | | | | | [address] | [phone] | | | | | [phone] | | | +--------+ + + + [...] | | | | | [place] [address] | | | | | | [phone] | | | | | | | | +--------+---------+ + + + | 04/30/ | Office | Sleep Medicine | Jacky Calderon PA | | | 2020 | Visit | | [address] | | | | | | [place] | | | | | | [address] | | | | | | | | +--------+---------+ + + + documented as of this encounter Visit Diagnoses Not on filedocumented in this encounter"
--- OUTSIDE RECORDS SUMMARY | ~2020-03-24 | XMS | Encounter Summary ---
Demographics + + + | Address | [address] | | | [place] [address] | + + + | Home Phone [...] Organization | [facility] | | | and [place]am[place] | + + + | Address | Unknown | + + + | Phone | Unavailable | + + + Support + + + + + | Name | Relationship | Address | Phone | + + + + + | [employer] | ECON | [id number] | | | | | Unknown | | + + + + + Care Team Providers + +------+ + | Care Setter Automatic Spinning Lathe Name | Role | Phone | + [...] | PULMONARY [address] | [address] | apnea (Primary Dx); | | | | [place] | [place] [address] | Obstructive sleep | | | | [place] [address] | [phone] | apnea (adult) | | | | [phone] | | (pediatric) | +--------+ + + [...] | | | | | [place] [address] | | | | | | [phone] | | | | | | | | +--------+---------+ + + + | 04/30/ | Office | Sleep Medicine | Jacky Calderon PA | | | 2019 | Visit | | [address] | | | | | | [place] | | | | | | [address] | | | | | | | | +--------+---------+ + + + documented as of this encounter Visit Diagnoses + + | Diagnosis | + + | Obstructive sleep apnea - Primary Obstructive sleep apnea (adult) (pediatric) | + + | Obstructive sleep apnea (adult) (pediatric) | + + documented in this encounter"
--- OUTSIDE RECORDS SUMMARY | ~2020-03-24 | XMS | Encounter Summary ---
Demographics + + + | Address | [address] | | | [place] [address] | + + + | Home Phone [...] | Organization | [facility] | | | and [place] | + + + | Address | Unknown | + + + | Phone | Unavailable | + + + Support + + + + + | Name | Relationship | Address | Phone | + + + + + | [employer] | ECON | [phone] | | | | | Unknown | | + + + + + Care Team Providers + +------+ + | Care Recording Studio Setup Worker Name | Role | Phone | [...] diseases (HCC) | | | | [place] [address] | | (Primary Dx); | | | | [phone] | | Chronic airway | | | | | | obstruction, not | | | | | | elsewhere classified | | | | | | ([facility]) | +--------+ + + + + Social [...] | | | | | [place] [address] | | | | | | [phone] | | | | | | | | +--------+---------+ + + + | 04/30/ | Office | Sleep Medicine | Jacky Calderon PA | | | 2020 | Visit | | [address] | | | | | | [place] | | | | | | [address] | | | | | | | [...] 06/15/2013 | | | | | diseases ([facility]) | until 06/15/2014 | | | | | Chronic airway | | | | | | obstruction, not | | | | | | elsewhere classified | | | | | | ([facility]) | | + + +--------+ + + documented as of this encounter Visit Diagnoses + + | Diagnosis | + + | Other chronic pulmonary heart diseases - Primary | + + | Chronic airway obstruction, not elsewhere classified | + + documented in this encounter"
--- OUTSIDE RECORDS SUMMARY | ~2020-03-24 | XMS | Encounter Summary ---
Demographics + + + | Address | [address] | | | [place] [address] | + + + | Home Phone [...] Team Providers + +------+ + | Care Rhinologist Name | Role | Phone | + +------+ + | Gela Trimble ELEVATOR CONSTRUCTOR HELPER | PCP | | + +------+ + Encounter Details +--------+ + + + + | Date | Type | Department | Care Team | Description | +--------+ + + + + | 05/17/ | Sales And Service Change Leader | Pulmonary & | Alexander Hays MD | Pulmonary | | 2012 | | Critical Care | [address] | hypertension (HCC) | | | | Medicine at | [facility], | (Primary Dx) | | | | [facility] | [place] [address] | | | | | [address] | [phone] | | | | | [address] [facility] | | | | | | [facility], 3rd Floor | | | | | | [place], [place] | | | | | | [address] | | | | | | [phone] | | | +--------+ + + + [...]
--- OUTSIDE RECORDS SUMMARY | ~2020-03-24 | XMS | Encounter Summary ---
Demographics + + + | Address | [address] | | | [place] [address] | + + + | Home Phone [...] + + + | Organization | [facility] | | | and [place]am[place] | + + + | Address | Unknown | + + + | Phone | Unavailable | + + + Support + + + + + | Name | Relationship | Address | Phone | + + + + + | [employer] | ECON | [phone] | | | | | Unknown | | + + + + + Care Team Providers + +------+ + | Care Button Reclaimer Name | Role | Phone | + [...] MD | hypertension | | | | [place], | | (Primary Dx); COPD | | | | [place] [address] | | (chronic obstructive | | | | [phone] | | pulmonary disease); | | | [...] Instructions Patient Instructions eVra Lainez MD - 03/12/2014 9:21 AM PDTIf [...] appointment to see cardiology, with records from [place] ER visit, wh [facility] I will also get. We will let [...] seeing a neurologist for the tremors in [facility] next week. Her breathing has been doing [...] Years of Education: N/A Occupational History Disabled. [employer] Social History Main Topics Smoking status: Former Smoker -- 1.0 packs/day for 20 years Types: Cigarettes Quit date: 05/14/2013 Smokeless tobacco: None Alcohol Use: Yes Comment: history of abuse Drug Use: Yes Special: Cocaine Comment: history of cocaine use Sexually Active: None Other Topics Concern None Social History Narrative Lives at [employer] [place]. Allergies: Allergies Allergen Reactions Erythromycin Metronidazole Penicillins [...] TABS Take 2,000 Units by mouth Daily. [place] Starch POWD by Does not apply route [...] tablet Take 15 mg by mouth Daily. [place]-3 Fatty Acids (SEA-OMEGA 30) 1200 MG CAPS [...] [place]is. 5. We will get records from [place]'s ER visit, but I did suggest cardiology [...] made to ensure accuracy; however, inadvertent computerized chain maker hand errors may be pre sent. Electronically signed [...] | | | | | [place] [address] | | | | | | [phone] | | | | | | | | +--------+---------+ + + + | 04/30/ | Office | Sleep Medicine | Jacky Calderon PA | | | 2019 | Visit | | [address] | | | | | | [place] | | | | | | [address] | | | | | | | [...]
--- OUTSIDE RECORDS SUMMARY | ~2020-03-24 | XMS | Encounter Summary ---
Demographics + + + | Address | [address] | | | [place] [address] | + + + | Home Phone [...] + | Organization | [facility] | | | and [place] | + + + | Address | Unknown | + + + | Phone | Unavailable | + + + Support + + + + + | Name | Relationship | Address | Phone | + + + + + | [employer] | ECON | [phone] | | | | | Unknown | | + + + + + Care Team Providers + +------+ + | Care Manager Clinical Informatics Name | Role | Phone | + +------+ + | Gela Trimble NP | PCP | | + +------+ + Encounter Details +--------+ + + + + | Date | Type | Department | Care Team | Description | +--------+ + + + + | 09/11/ | Hospital | [facility] | Saharaenstein, | Primary pulmonary | | 2013 | Encounter | MED CTR PULMONARY | Vera Farrar MD | hypertension; COPD | | | | FUN[address] | | (chronic obstructive | | | | [place], | | pulmonary disease); | | | | [place] [address] | | Hypoxemia | | | | [phone] | | | +--------+ + + + [...] | ([facility]) | | | | | | + + + +---------+ + + | buPROPion | Take 100 mg by mouth | | 0 | | | | (WELLBUTRIN) 100 mg | 2 times daily. | | | | 6 | | tablet | | | | | | + + + +---------+ + + | [place] Starch POWD | by Does not apply [...] + + +---------+ + + | [place]-3 Fatty | Take by mouth. | | [...] | | | | | [place] [address] | | | | | | [phone] | | | | | | | | +--------+---------+ + + + | 04/30/ | Office | Sleep Medicine | Jacky Calderon PA | | | 2019 | Visit | | [address] | | | | | | [place] | | | | | | [address] | | | | | | | [...]
--- OUTSIDE RECORDS SUMMARY | ~2020-03-24 | XMS | Encounter Summary ---
Demographics + + + | Address | [address] | | | [place] [address] | + + + | Home Phone [...] + | Organization | [facility] | | | and [place]am[place] | + + + | Address | Unknown | + + + | Phone | Unavailable | + + + Support + + + + + | Name | Relationship | Address | Phone | + + + + + | [employer] | ECON | [id number] | | | | | Unknown | | + + + + + Care Team Providers + +------+ + | Care Applications Project Manager Name | Role | Phone | [...] | | | | | (HCC) | [address] | AVE | | | | | Procedures | [place], | [place], [place] | | | | | ECHO | [place] [address] | [address] | | | | | Complete CT | | Phone: | | | | | ECHO HEART | | [phone] | | | | | [employer] | | Fax: | | | | | [address] | | [phone] | | | | | DOPPL[address] CT [...] | | | Pulmonology | obstructive | [facility] [address] | MD | | | | | pulmonary | [address] | | | | | | disease, | [place], | | | | | | unspecified | [place] [address] | | | | | | ([facility]) | Phone: | | | | | | Procedures | [phone] | | | | | | F/U | Fax: | | | | | | | [phone] | | +--------+--------+ + + + + Encounter Details +--------+---------+ + + + | Date | Type | Department | Care Team | Description | +--------+---------+ + + + | 02/02/ | Office | [facility] [place] | [place], | Primary pulmonary | | 2016 | Visit | PULMONARY [address] | Vera Farrar MD | hypertension (HCC) | | | | [place], | | (Primary Dx); | | | | [place] [address] | | Chronic obstructive | | | | [phone] | | pulmonary disease, | | | [...] Years of Education: N/A Occupational History Disabled. [employer] Social History Main Topics Smoking status: Former Smoker -- 1.00 packs/day for 20 years Types: Cigarettes Quit date: 12/15/2015 Smokeless tobacco: Never Used Alcohol Use: No Drug Use: No Sexual Activity: Not on file Other Topics Concern None Social History Narrative Lives at [employer]. Allergies: Allergies Allergen Reactions Erythromycin Other (See [...] TABS Take 2,000 Units by mouth Daily. [place] Starch POWD by Does not apply route [...] mg onto the skin every 24 hours. [place]-3 Fatty Acids (SEA-OMEGA 30) 1200 MG CAPS [...] appointment with Dr. Rivera. ECHO Complete * [facility] ([facility]) Pulmonary Function Testing - AMB Referral [...] made to ensure accuracy; however, inadvertent computerized subsea engineer errors may be pre sent. documented [...] | | | | | [place] [address] | | | | | | [phone] | | | | | | | | +--------+---------+ + + + | 04/30/ | Office | Sleep Medicine | Jacky Calderon PA | | | 2020 | Visit | | [address] | | | | | | [place] | | | | | | [address] | | | | | | | [...]
--- OUTSIDE RECORDS SUMMARY | ~2020-03-24 | XMS | Encounter Summary ---
Demographics + + + | Address | [address] | | | [place] [address] | + + + | Home Phone [...] | Organization | [facility] | | | and [place]am[place] | + + + | Address | Unknown | + + + | Phone | Unavailable | + + + Support + + + + + | Name | Relationship | Address | Phone | + + + + + | [employer] | ECON | [phone] | | | | | Unknown | | + + + + + Care Team Providers + +------+ + | Care Beehive Kiln Supervisor Name | Role | Phone | [...] + + | 05/21/ | Office | [facility] | Jacky Calderon PA | Primary central | | 2014 | Visit | SLEEP DISORDER [address] | [address] | sleep apnea (Primary | | | | [address] [place] | [place], [place] | Dx) | | | | [place] [address] | [address] | | | | | [phone] | | | +--------+---------+ + + + [...] was: 01/23/2014 date of polysomnography: 03/13/2013 at [facility] AHI: 64.2 O2%: n/a Machine type: Respironics BiPAP Auto with ResCarreira Beauty Quattro FX full face mask obtained from: [facility] pressure: 16/5 cm with backup [...] year, sooner prn. Fifteen minutes were spent [id number], with the majority of time spent in [...] | | | | | [place] [address] | | | | | | [phone] | | | | | | | | +--------+---------+ + + + | 04/30/ | Office | Sleep Medicine | Jacky Calderon PA | | | 2019 | Visit | | [address] | | | | | | [place] | | | | | | [address] | | | | | | | | +--------+---------+ + + + documented as of this encounter Visit Diagnoses + + | Diagnosis | + + | Primary central sleep apnea - Primary | + + documented in this encounter"
--- OUTSIDE RECORDS SUMMARY | ~2020-03-24 | XMS | Encounter Summary ---
Demographics + + + | Address | [address] | | | [place] [address] | + + + | Home Phone [...] | [facility] | | | and [place] | + + + | Address | Unknown | + + + | Phone | Unavailable | + + + Support + + + + + | Name | Relationship | Address | Phone | + + + + + | [employer] | ECON | [id number] | | | | | Unknown | | + + + + + Care Team Providers + +------+ + | Care Asset Management Lead Name | Role | Phone | [...] | [address] [place] | [place], [place] [address] | | | | | [address] [place], [place] | [place], [place] | | | | | [address] | [address] | | | | | [phone] | | | +--------+ + + + [...] | | | | | [place] [address] | | | | | | [phone] | | | | | | | [...]
--- OUTSIDE RECORDS SUMMARY | ~2020-03-24 | XMS | Encounter Summary ---
Demographics + + + | Address | [address] | | | [place] [address] | + + + | Home Phone [...] | Organization | [facility] | | | and [place] | + + + | Address | Unknown | + + + | Phone | Unavailable | + + + Support + + + + + | Name | Relationship | Address | Phone | + + + + + | [employer] | ECON | [phone] | | | | | Unknown | | + + + + + Care Team Providers + +------+ + | Care Elementary School Art Teacher Name | Role | Phone | [...] + + | 12/26/ | Office | [facility] | Jacky Calderon PA | Primary central | | 2013 | Visit | SLEEP DISORDER 401 | [address] | sleep apnea (Primary | | | | [address] [place] | [place], [place] | Dx) | | | | [place] [address] | [address] | | | | | [phone] | | | +--------+---------+ + + + [...] was: 11/20/2013 date of polysomnography: 03/13/2013 at [facility] AHI: 64.2 O2%: n/a Machine type: Respironics BiPAP Auto with ResMed Quattro FX full face mask obtained from: [facility] pressure: 19/5 cm Nights using BiPAP: [...] a prescription to [facility] [place] for a change in her pressure s etting to 16/5 cm with backup rate of 8 and 5 L/min oxygen bled into the circuitry. She is to continue with BiPAP at these settings. I will follow up with her in 1 month, sooner prn. Thirty minutes were spent [id number], with the majority of time spent in [...] | | | | | [place] [address] | | | | | | [phone] | | | | | | | | +--------+---------+ + + + | 04/30/ | Office | Sleep Medicine | Jacky Calderon PA | | | 2019 | Visit | | [address] | | | | | | [place] | | | | | | [address] | | | | | | | | +--------+---------+ + + + documented as of this encounter Visit Diagnoses + + | Diagnosis | + + | Primary central sleep apnea - Primary | + + documented in this encounter"
--- OUTSIDE RECORDS SUMMARY | ~2020-03-24 | XMS | Encounter Summary ---
Demographics + + + | Address | [address] | | | [place] [address] | + + + | Home Phone [...] Organization | [facility] | | | and [place]am[place] | + + + | Address | Unknown | + + + | Phone | Unavailable | + + + Support + + + + + | Name | Relationship | Address | Phone | + + + + + | [employer] | ECON | [id number] | | | | | Unknown | | + + + + + Care Team Providers + +------+ + | Care Welfare Eligibility Worker Name | Role | Phone | [...] Farrar MD | | | | | [place], | | | | | | [place] [address] | | | | | | [phone] | | | +--------+--------+ + + + [...] | | | | | [place] [address] | | | | | | [phone] | | | | | | | | +--------+---------+ + + + | 04/30/ | Office | Sleep Medicine | Jacky Calderon PA | | | 2019 | Visit | | [address] | | | | | | [place] | | | | | | [address] | | | | | | | | +--------+---------+ + + + documented as of this encounter Visit Diagnoses Not on filedocumented in this encounter"
--- OUTSIDE RECORDS SUMMARY | ~2020-03-24 | XMS | Encounter Summary ---
Demographics + + + | Address | [address] | | | [place] [address] | + + + | Home Phone [...] Author + + + | Author | [facility] | + + + | Organization | [facility] | + + + | Address | Unknown | + + + | Phone | Unavailable | + + + Support + + +---------+ + | Name | Relationship | Address | Phone | + + +---------+ + | Lidia Thibodeaux | ECON | Unknown | | + + +---------+ + Care Team Providers + +------+ + | Care Dowel Inserting Machine Operator Name | Role | Phone [...] | | | | | Floor | [place], [place] | | | | | | [place], [place] | [address] | | | | | | [address] | Phone: | | | | | | Phone: | [phone] | | | | | | [phone] | Fax: | | | | | | Fax: | [phone] | | | | | | [phone] | | +--------+--------+ + + + + Encounter Details +--------+ + + + + | Date | Type | Department | Care Team | Description | +--------+ + + + + | 03/27/ | Outside | Neurophysiology | Mustapha Vidal, | | | 2012 | Referral | EEG at [facility] [address] | MD [place] | | | | Order | [facility] | [facility] [address] | | | | | [employer] | [address]ATI [address] Carlos | | | | | [place], [address] Floor | [place] [address] | | | | | [place], [place] | [phone] | | | | | [address] | | | | | | [phone] | | | +--------+ + + + [...] 1965 Medical | | | Record Number: [id number] Date of Test: 03/27/2013 Place of | | | Service: [facility] Department: EEG [facility] [phone] | | | ROUTINE EEG - [facility] Reason for Exam: Evaluate for | [...] | Clinical Events: No pushbutton events or converting technician notes of unusual | | | [...] Laws M.D. | | | Suggested CPT: 11584 - EEG Routine Awake & Asleep Suggested Dx: | | | 780.39-Convulsions | | + + + documented in this encounter Visit Diagnoses Not on filedocumented in this encounter"
--- OUTSIDE RECORDS SUMMARY | ~2020-03-24 | XMS | Encounter Summary ---
Demographics + + + | Address | [address] | | | [place] [address] | + + + | Home Phone [...] | Organization | [facility] | | | and [place]am[place] | + + + | Address | Unknown | + + + | Phone | Unavailable | + + + Support + + + + + | Name | Relationship | Address | Phone | + + + + + | [employer] | ECON | [id number] | | | | | Unknown | | + + + + + Care Team Providers + +------+ + | Care Superintendent Warehouse Name | Role | Phone | + [...] | | | | | | [place] [address] | | | | | | [phone] | | | +--------+ + + + [...] | | | | | [place] [address] | | | | | | [phone] | | | | | | | | +--------+---------+ + + + | 04/30/ | Office | Sleep Medicine | Jacky Calderon PA | | | 2020 | Visit | | [address] | | | | | | [place] | | | | | | [address] | | | | | | | [...]
--- OUTSIDE RECORDS SUMMARY | ~2020-03-24 | XMS | Encounter Summary ---
Demographics + + + | Address | [address] | | | [place] [address] | + + + | Home Phone [...] Organization | [facility] | | | and [place]am[place] | + + + | Address | Unknown | + + + | Phone | Unavailable | + + + Support + + + + + | Name | Relationship | Address | Phone | + + + + + | [employer] | ECON | [phone] | | | | | Unknown | | + + + + + Care Team Providers + +------+ + | Care Animal Husbandry Worker Name | Role | Phone | [...] | | | | | pharyngeal | SPOUT LINER HELPER [address] | SPOUT LINER HELPER [address] | | | | | phase | [address] | [place], [place] | | | | | Procedures | [place], | [address] [place] | | | | | Office Visit | [place] [address] | [place], [place] | | | | | | Phone: | [address] Phone: | | | | | | [phone] | [phone] | | | | | | Fax: | Fax: | | | | | | [phone] | [phone] | +--------+--------+ + + + + Encounter [...] | [address] [place] | [place], [place] [address] | dysphagia (Primary | | | | [address] [place], [place] | [place], [place] | Dx); Chronic | | | | [address] | [address] | obstructive | | | | [phone] | | pulmonary disease, | | | [...] Years of Education: N/A Occupational History Disabled. [employer] Social History Main Topics Smoking status: Former Smoker -- 1.00 packs/day for 20 years Types: Cigarettes Quit date: 12/15/2015 Smokeless tobacco: Never Used Comment: Smoking a cigarette every 2 hours Alcohol Use: No Drug Use: No Sexual Activity: Not on file Other Topics Concern Not on file Social History Narrative Lives at [employer]. Review of systems: Constitutional:Denies any fevers, chills, [...] prescribed. Discussed that if PPI is used joint terminal attack controller, Calcium an d Vitamin D should be [...] | | | | | [place] [address] | | | | | | [phone] | | | | | | | | +--------+---------+ + + + | 04/30/ | Office | Sleep Medicine | Jacky Calderon PA | | | 2019 | Visit | | [address] [place] [address] | | | | | | [...]
--- OUTSIDE RECORDS SUMMARY | ~2020-03-24 | XMS | Encounter Summary ---
Demographics + + + | Address | [address] | | | [place] [address] | + + + | Home Phone [...] [facility] | | | and [place]am[place] | + + + | Address | Unknown | + + + | Phone | Unavailable | + + + Support + + + + + | Name | Relationship | Address | Phone | + + + + + | [employer] | ECON | [id number] | | | | | Unknown | | + + + + + Care Team Providers + +------+ + | Care Anatomic Pathology Manager Name | Role | Phone | [...] | | | Pulmonology | obstructive | [address] | MD | | | | | pulmonary | [address] | | | | | | disease, | [place], | | | | | | unspecified | [place] [address] | | | | | | ([facility]) | Phone: | | | | | | Procedures | [phone] | | | | | | F/U | Fax: | | | | | | | [phone] | | +--------+--------+ + + + + Encounter Details +--------+---------+ + + + | Date | Type | Department | Care Team | Description | +--------+---------+ + + + | 11/07/ | Office | [facility] | [place], | Primary pulmonary | | 2016 | Visit | PULMONARY [address] | Vera Farrar MD | hypertension | | | | [place], | | (Primary Dx); [place] | | | | [place] [address] | | (obstructive sleep | | | | [phone] | | apnea); Hypoxemia; | | | [...] Years of Education: N/A Occupational History Disabled. [employer] Social History Main Topics Smoking status: Current Every Day Smoker -- 1.00 packs/day for 20 years Types: Cigarettes Smokeless tobacco: Never Used Alcohol Use: No Drug Use: No Sexual Activity: None Other Topics Concern None Social History Narrative Lives at [employer]. Allergies: Allergies Allergen Reactions Erythromycin Metronidazole Penicillins [...] TABS Take 2,000 Units by mouth Daily. [place] Starch POWD by Does not apply route [...] mg onto the skin every 24 hours. [place]-3 Fatty Acids (SEA-OMEGA 30) 1200 MG CAPS [...] sounds are diminished bilaterally, no wheezes, scrap crusher ckles or rhonchi Chest Wall: No deformity [...] compliance, not using her oxygen appropriately. * [facility] ([facility]) Pulmonary Function Testing - AMB Referral 2. [...] made to ensure accuracy; however, inadvertent computerized gastroenterology manager errors may be pre sent. documented [...] | | | | | [place] [address] | | | | | | [phone] | | | | | | | | +--------+---------+ + + + | 04/30/ | Office | Sleep Medicine | Jacky Calderon PA | | | 2019 | Visit | | [address] | | | | | | [place] | | | | | | [address] | | | | | | | [...] | 1.02 | 0.60 - 1.30 | [facility] | | | | | mg/dL | [facility] | | | | | | [facility] | | | | | | [facility] - | | | | | | LABORATORY | | + + + + + + | eGFR if not | 57 (L)Comment: | >=60 | [facility] | | | | GLOMERULAR FILTRATION | mL/min/1.73m2 | [facility] | | | [place] | RATE,ESTIMATED | | MEDICAL | | | | mL/min/1.12n4Bqak than | | CENTER - | | [...] + | [facility] | [address] | [place] | [phone] | | [facility] | | [address] | | | - LABORATORY | | [...] [address] | [place] | [phone] | | [facility] | | [address] | | | - LABORATORY | | [...]
--- OUTSIDE RECORDS SUMMARY | ~2020-03-24 | XMS | Clinical Summary ---
Demographics + + + | Address | [address] | | | [place] [address] | + + + | Home Phone [...] + | Organization | [facility] | | | and [place] | + + + | Address | Unknown | + + + | Phone | Unavailable | + + + Support + + + + + | Name | Relationship | Address | Phone | + + + + + | [employer] | ECON | [phone] | | | | | Unknown | | + + + + + Care Team Providers + +------+ + | Care Resource Management Specialist Name | Role | Phone | [...] Mean [place] | | [address] mean 10Overview: -[facility] 04/2013 [facility]: FindingsBASELINE on 2L | | [...] & Plan: -echocardiogram at local | | hospital-[facility]. We will talk by phone with | | the results.-keep up the good work with walking, BIPAP use, | | oxygen use, and no smoking. -continue with your yearly flu | | vaccine.-you should have a f/u appointment with your new | | direct care worker sometime in the next 6 months. -you [...] 1 year or sooner if needed. Dr. Artuhr will help us | | decide if you need to come back sooner. Walk at next visit. | | Overview: -[facility] 04/2013 [facility]: FindingsBASELINE on 2L O2RA: mean [...] & Plan: -echocardiogram at local | | hospital-[facility]. We will talk by phone with | | the results.-keep up the good work with walking, BIPAP use, | | oxygen use, and no smoking. -continue with your yearly flu | | vaccine.-you should have a f/u appointment with your new | | direct care worker sometime in the next 6 months. -you [...] |Last Assessment & Plan: | |-echocardiogram at [facility]. We will talk by phone with t he results. | |-keep up the good work with walking, BIPAP use, oxygen use, and no smoking. | |-continue with your yearly flu vaccine. | |-you should have a f/u appointment with your new direct care worker sometime in the next 6 month s. [...] | | | | | [place] [address] | | | | | | [phone] | | | | | | | | +--------+---------+ + + + | 04/30/ | Office | Sleep Medicine | Jacky Calderon PA | | | 2019 | Visit | | [address] | | | | | | [place] | | | | | | [address] | | | | | | | [...] | [employer] | [facility] | [id number] | 04/30/20 | [phone] | | Medica [...] | | al/Kalpesh | | 1965 | [phone] | [place] | | | jammie | | | 5 (Home) | [address] | + +--------+ +--------+ + + Advance Directives + + + + + | Type | Date Recorded | Patient | Explanation | | | | Rfid Systems Architect | | + + + + + | Power of | | | | | Pattern Worker | | | | + + + + + | Advance | 03/26/2015 12:35 | | | | Directive | PM | | | + + + + +
--- OUTSIDE RECORDS SUMMARY | ~2020-03-24 | XMS | Encounter Summary ---
Demographics + + + | Address | [address] | | | [place] [address] | + + + | Home Phone [...] | Organization | [facility] | | | and [place] | + + + | Address | Unknown | + + + | Phone | Unavailable | + + + Support + + + + + | Name | Relationship | Address | Phone | + + + + + | [employer] | ECON | [phone] | | | | | Unknown | | + + + + + Care Team Providers + +------+ + | Care Garage Door Hanger Name | Role | Phone | + [...] | hypertension (HCC) | | | | [place], | | | | | | [place] [address] | | | | | | [phone] | | | +--------+ + + + [...] | | | | | [place] [address] | | | | | | [phone] | | | | | | | | +--------+---------+ + + + | 04/30/ | Office | Sleep Medicine | Jacky Calderon PA | | | 2020 | Visit | | [address] | | | | | | [place] | | | | | | [address] | | | | | | | | +--------+---------+ + + + documented as of this encounter Visit Diagnoses + + | Diagnosis | + + | Pulmonary hypertension (HCC) Other chronic pulmonary heart diseases | + + documented in this encounter"
--- OUTSIDE RECORDS SUMMARY | ~2020-03-24 | XMS | Encounter Summary ---
Demographics + + + | Address | [address] | | | [place] [address] | + + + | Home Phone [...] + + | Organization | [facility] | | | and [place] | + + + | Address | Unknown | + + + | Phone | Unavailable | + + + Support + + + + + | Name | Relationship | Address | Phone | + + + + + | [employer] | ECON | [phone] | | | | | Unknown | | + + + + + Care Team Providers + +------+ + | Care Art Department Head Name | Role | Phone | + [...] S | Dx) | | | | [place], | [place] [address] | | | | | [place] [address] | [phone] | | | | | [phone] | | | +--------+ + + + [...] | | | | | [place] [address] | | | | | | [phone] | | | | | | | | +--------+---------+ + + + | 07/01/ | Office | Sleep Medicine | Jacky Calderon PA | | | 2020 | Visit | | [address] [facility] | | | | | | [place] | | | | | | [address] | | | | | | | [...] | + + + + + | [facility] | [address] | [place] | [phone] | | [facility] | | [address] | | | - IMAGING | | | | + + + + + documented in this encounter Visit Diagnoses + + | Diagnosis | + + | Lung nodule - Primary Solitary pulmonary nodule | + + documented in this encounter"
--- OUTSIDE RECORDS SUMMARY | ~2020-03-24 | XMS | Encounter Summary ---
Demographics + + + | Address | [address] | | | [place] [address] | + + + | Home Phone [...] + | Organization | [facility] | | | and [place] | + + + | Address | Unknown | + + + | Phone | Unavailable | + + + Support + + + + + | Name | Relationship | Address | Phone | + + + + + | [employer] | ECON | [id number] | | | | | Unknown | | + + + + + Care Team Providers + +------+ + | Care Associate Professor Of Violin Name | Role | Phone | + [...] | | | | | pulmonary | SHINGLE CATCH[address] | [address] | | | | | hypertension | [address] | [place], [place] | | | | | (HCC) | [place], | [address] | | | | | Procedures | [place] [address] | Phone: | | | | | F/U | Phone: | [phone] | | | | | | [phone] | Fax: | | | | | | Fax: | [phone] | | | | | | [phone] | | +--------+--------+ + + + + Encounter Details +--------+---------+ + + + | Date | Type | Department | Care Team | Description | +--------+---------+ + + + | 02/01/ | Office | [facility] | Jerson Scout Mistry, | Primary pulmonary | | 2017 | Visit | PULMONARY [address] | [address] | hypertension (HCC) | | | | [place], | [place] [address] | (Primary Dx); | | | | [place] [address] | [phone] | Chronic respiratory | | | | [phone] | | failure with hypoxia | | [...] on medication and oxygen and BiPAP at [facility] HPI: I am able to reconstruct this patient's history with the benefit of Dr. Elvi rivera's pulmonary clinic notes from [facility] in [place] from May 17, 2016. Today, she [...] was apparently diagnosed August 08, 2013 in [place] at [facility] on 2 L with right atrial mean [...] July 2015 chest x-ray. An echocardiogram from [facility] done March 09, 2016, a little b [...] be seeing her pulmonary hypertension specialist in [place] before then. The note from 2016 was very helpful. Over half the session was spent in counseling. [employer] was used as a sales order processor and I terrance pologized for uncorrected [...] | | | | | [place] [address] | | | | | | [phone] | | | | | | | | +--------+---------+ + + + | 04/30/ | Office | Sleep Medicine | Jacky Calderon PA | | 2019 | Visit | | [address] | | | | | | [place] | | | | | | [phone] | | | | | | | [...]
--- OUTSIDE RECORDS SUMMARY | ~2020-03-24 | XMS | Encounter Summary ---
Demographics + + + | Address | [address] | | | [place] [address] | + + + | Home Phone [...] Organization | [facility] | | | and [place] | + + + | Address | Unknown | + + + | Phone | Unavailable | + + + Support + + + + + | Name | Relationship | Address | Phone | + + + + + | [employer] | ECON | [id number] | | | | | Unknown | | + + + + + Care Team Providers + +------+ + | Care Escort Blind Name | Role | Phone | + [...] [place], [place] | | | | | [address] | [address] | | | | | [phone] | [phone] | | | | | | | [...] | | | | | [place] [address] | | | | | | [phone] | | | | | | | [...]
--- OUTSIDE RECORDS SUMMARY | ~2020-03-24 | XMS | Encounter Summary ---
Demographics + + + | Address | [address] | | | [place] [address] | + + + | Home Phone [...] | [facility] | | | and [place] | + + + | Address | Unknown | + + + | Phone | Unavailable | + + + Support + + + + + | Name | Relationship | Address | Phone | + + + + + | [employer] | ECON | [phone] | | | | | Unknown | | + + + + + Care Team Providers + +------+ + | Care Weaving Professor Name | Role | Phone | [...] + + | 10/16/ | Office | [facility] | Jacky Calderon PA | Primary central | | 2012 | Visit | SLEEP DISORDER [address] | [address] | sleep apnea (Primary | | | | [address] [place] | [place], [place] | Dx) | | | | [place] [address] | [address] | | | | | [phone] | | | +--------+---------+ + + + [...] was: 09/25/2013 date of polysomnography: 03/13/2013 at [facility] AHI: 64.2 O2%: n/a Machine type: Respironics BiPAP Auto with ResMed Quattro FX full face mask obtained from: [facility] pressure: 18/14 cm Nights using BiPAP: 2021 [...] prescription sent to [facility] in [place] by Dr. Lainez had the correct pressures. [facility] in [facility] will make the adjustment to Jessie's [...] month, sooner prn. Fifteen minutes were spent [id number], wi th the majority of time spent in counseling. Jacky Calderon PA-C cc: Gela [place], MATERIAL DAMAGE ADJUSTER-Xiang Lainez MD documented in this enco unter [...] | | | | | [place] [address] | | | | | | [phone] | | | | | | | | +--------+---------+ + + + | 04/30/ | Office | Sleep Medicine | Jacky Calderon PA | | 2019 | Visit | | [address] | | | | | | [place] | | | | | | [address] | | | | | | | | +--------+---------+ + + + documented as of this encounter Visit Diagnoses + + | Diagnosis | + + | Primary central sleep apnea - Primary | + + documented in this encounter"
--- OUTSIDE RECORDS SUMMARY | ~2020-03-24 | XMS | Encounter Summary ---
Demographics + + + | Address | [address] | | | [place] [address] | + + + | Home Phone [...] Organization | [facility] | | | and [place]am[place] | + + + | Address | Unknown | + + + | Phone | Unavailable | + + + Support + + + + + | Name | Relationship | Address | Phone | + + + + + | [employer] | ECON | [phone] | | | | | Unknown | [...] | | | Pulmonology | obstructive | DENTAL CLAIMS PROCESSOR [address] | MD | | | | | pulmonary | [address] | | | | | | disease, | [place], | | | | | | unspecified | [place] [address] | | | | | | ([facility]) | Phone: | | | | | | Procedures | [phone] | | | | | | F/U | Fax: | | | | | | | [phone] | | +--------+--------+ + + + + Encounter Details +--------+---------+ + + + | Date | Type | Department | Care Team | Description | +--------+---------+ + + + | 11/07/ | Office | [facility] | [place], | Primary pulmonary | | 2016 | Visit | PULMONARY [address] | Vera Farrar MD | hypertension | | | | [place], | | (Primary Dx); [place] | | | | [place] [address] | | (obstructive sleep | | | | [phone] | | apnea); Hypoxemia; | | | [...] in this encounter Patient Instructions Patient Instructions Vrea Lainez MD - 11/07/2015 3:23 PM PSTIncrease [...] Years of Education: N/A Occupational History Disabled. [employer] Social History Main Topics Smoking status: Current Every Day Smoker -- 1.00 packs/day for 20 years Types: Cigarettes Smokeless tobacco: Never Used Alcohol Use: No Drug Use: No Sexual Activity: None Other Topics Concern None Social History Narrative Lives at [employer]. Allergies: Allergies Allergen Reactions Erythromycin Metronidazole Penicillins [...] TABS Take 2,000 Units by mouth Daily. [place] Starch POWD by Does not apply route [...] mg onto the skin every 24 hours. [place]-3 Fatty Acids (SEA-OMEGA 30) 1200 MG CAPS [...] breath sounds are diminished bilaterally, no wheezes, supervisor crack off ckles or rhonchi Chest Wall: No deformity [...] compliance, not using her oxygen appropriately. * [facility] ([facility] [place] Pulmonary Function Testing - AMB Referral [...] to ensure accuracy; however, inadvertent computerized director public service errors may be pre sent. documented in [...] | | | | | [place] [address] | | | | | | [phone] | | | | | | | | +--------+---------+ + + + | 04/30/ | Office | Sleep Medicine | Jacky Calderon PA | | | 2019 | Visit | | [address] | | | | | | [place] | | | | | | [address] | | | | | | | [...] | | | | | | [facility] | | | | | | MEDICAL [...] | 1.02 | 0.60 - 1.30 | [facility] | | | | | mg/dL | [facility] | | | | | | MEDICAL | | | | | | CENTER - | | | | | | LABORATORY | | + + + + + + | eGFR if not | 57 (L)Comment: | >=60 | [facility] | | | | GLOMERULAR FILTRATION | mL/min/1.73m2 | [facility] | | | EQUATORIAL GUINEAN | RATE,ESTIMATED | | MEDICAL | | | | mL/min/1.50i3Szrh than | | CENTER - | | [...] + | [facility] | [address] | [place] | [phone] | | [facility] | | [address] | | | - LABORATORY | | [...] [address] | [place] | [phone] | | [facility] | | [address] | | | - LABORATORY | | [...]
--- OUTSIDE RECORDS SUMMARY | ~2020-03-24 | XMS | Encounter Summary ---
Demographics + + + | Address | [address] | | | [place] [address] | + + + | Home Phone [...] | Organization | [facility] | | | and [place]am[place] | + + + | Address | Unknown | + + + | Phone | Unavailable | + + + Support + + + + + | Name | Relationship | Address | Phone | + + + + + | [employer] | ECON | [id number] | | | | | Unknown | | + + + + + Care Team Providers + +------+ + | Care Research Assistant Member Name | Role | Phone | [...] [place], [place] | | | | | [address] | [address] | | | | | [phone] | [phone] | | | | | | | [...] | | | | | [place] [address] | | | | | | [phone] | | | | | | | [...]
--- OUTSIDE RECORDS SUMMARY | ~2020-03-24 | XMS | Encounter Summary ---
Demographics + + + | Address | [address] | | | [place] [address] | + + + | Home Phone | | + + + | Preferred Language | Unknown | + + + | Marital Status | Single | + + + | Bahai Affiliation | NRP | + + + | Race | White | + + + | Ethnic Group | Not or | + + + Author + + + | Author | [facility] | + + + | Organization | [facility] | + + + | Address | Unknown | + + + | Phone | Unavailable | + + + Support + + +---------+ + | Name | Relationship | Address | Phone | + + +---------+ + | Lidia Thibodeaux | ECON | Unknown | | + + +---------+ + Care Team Providers + +------+ + | Care Multi Share Program Coordinator Name | Role | Phone [...] | 2012 | Only | Echocardiography | [phone] | | | | | [address] | | | | | | Loop Mailcode: | | | | | | [id number] Outpatient | | | | | | Clinic Building | | | | | | [place], [place] | | | | | | [address] | | | | | | [phone] | | | +--------+ + + + [...] DEPT OF | [address] | [place], [place] | | | CARDIOLOGY | [facility] | [address] | | + + + + + documented in this encounter Visit Diagnoses Not on filedocumented in this encounter"
--- OUTSIDE RECORDS SUMMARY | ~2020-03-24 | XMS | Encounter Summary ---
Demographics + + + | Address | [address] | | | [place] [address] | + + + | Home Phone [...] | Organization | [facility] | | | and [place]am[place] | + + + | Address | Unknown | + + + | Phone | Unavailable | + + + Support + + + + + | Name | Relationship | Address | Phone | + + + + + | [employer] | ECON | [id number] | | | | | Unknown | | + + + + + Care Team Providers + +------+ + | Care Field Specialist Name | Role | Phone | + +------+ + | Gela Trimble SALES OFFICE MANAGER | PCP | | + +------+ [...] NW | | | | | ([facility]LY [facility]) | MD [address] | | | | | | [address] | [address] | | | | | | [place], | [place], [place] | | | | | | [place] [address] | [address] Phone: | | | | | | | [phone] | | | | | | | Fax: | | | | | | | [phone] | +--------+ + + + + + [...] | | MD [address] | | | | | | [address] | [place], | | | | | | [place], | [place] [address] | | | | | | [place] [address] | Phone: | | | | | | | [phone] | | | | | | | Fax: | | | | | | | [phone] | +--------+ + + + + + [...] NW | | | | | ([facility]) | [address] | | | | | | [address] | [address] | | | | | | [place], | [place], [place] | | | | | | [place] [address] | [address] Phone: | | | | | | | [phone] | | | | | | | Fax: | | | | | | | [phone] | +--------+ + + + + + Encounter Details +--------+---------+ + + + | Date | Type | Department | Care Team | Description | +--------+---------+ + + + | 07/04/ | Office | [facility] | [place], | Pulmonary | | 2012 | Visit | PULMONARY [address] | Vera Farrar MD | hypertension ([facility]) | | | | [place], | | (Primary Dx); [place] | | | | [place] [address] | | (obstructive sleep | | | | [phone] | | apnea); Hypoxemia; | | | | | | COPD (chronic | | | | | | obstructive | | | | | | pulmonary disease) | | | | | | ([facility]); Congestive | | | | | | heart failure with | | | | | | LV diastolic | | | | | | dysfunction, NYHA | | | | | | class 3 ([facility]); | | | | | | History [...] [place] [facility] [address] [place], [address] Referring Provider: Nai Otoole, Gela FELICIANO Margarita [...] and chest pain. She was taken to [facility] and underwent evaluation there. She does [...] pre hospitalization work up either. While at [facility], she had a right heart cath [...] factors for HIV. She was tested at [facility] as well. Past Medical History Past [...] Years of Education: N/A Occupational History Disabled. [employer] Social History Main Topics Smoking status: Former Smoker -- 1.0 packs/day for 20 years Types: Cigarettes Quit date: 05/14/2013 Smokeless tobacco: None Alcohol Use: Yes history of abuse Drug Use: Yes Special: Cocaine history of cocaine use Sexually Active: None Other Topics Concern None Social History Narrative Lives at [facility]. Allergies: Allergies Allergen Reactions Erythromycin Metronidazole Penicillins [...] Place 1 applicator vaginally 2 times daily. [place]-3 Fatty Acids (SEA-OMEGA 30) 1200 MG CAPS [...] pressure of 18/14cm H2O. Echocardiogram done at [facility] on May 02, 2013 was reviewed [...] were performed on May 07, 2013 at [facility] in the pulmonary function l ab [...] were reviewed in clinic today. Records from [facility] are reviewed in clinic today. Assessment [...] to them, but she [place] in the interim. I am going to [...] iPAP. She had an overnight oximetry at [facility] (I think on 2L?) which showed [...] ordered today. 7.See pulmonary hypertension specialist in [place], Dr. Rivera to address question of medi [...] made to ensure accuracy; however, inadvertent computerized stone paver errors may be pre sent. documented in [...] | | | | | [place] [address] | | | | | | [phone] | | | | | | | [...] | + + +--------+ + + | GRADES 1 THROUGH 6 TEACHER Ab, IgG | Lab | Routin | Pulmonary | Expected: | | | | e | hypertension (HCC) | 07/04/2013, Expires: | | | | | | 07/04/2014 | + + +--------+ + + | Rowley Ab, IgG | Lab | Routin | Pulmonary | Expected: | | | | e | hypertension ([facility]) | 07/04/2013, Expires: | | | | | | 07/04/2014 | + + +--------+ + + | Pulse oximetry | Respiratory | Routin | Pulmonary | Expected: | | titation | Care | e | hypertension ([facility]) | 07/04/2013, Expires: | | | | | | 07/04/2014 | + + +--------+ + + | Oxygen Therapy | Respiratory | Routin | Pulmonary | Expected: | | | Care | e | hypertension ([facility]) | 07/04/2013, Expires: | | | | [...] | | MEDICAL | | | | [id number]: [id number] | | CENTER - | | | [...] + | [facility] | [address] | [place] | [phone] | | [facility] | | [address] | | | - LABORATORY | | | | + + + + + | [facility] | [address] | [place] | | | [facility] | | [address], [facility] | | | - LABORATORY | [...] [facility] | | | | | | [facility] | | | | | | MEDICAL | | | | | | CENTER - | | | | | | LABORATORY | | + +-------+ + + + + + | Specimen | + + | Blood specimen | | (specimen) | + + + + + + + | Performing | Address | City[facility]State[facility] | Phone Number | | Organization | | | | + + + + + | [facility] | [address] | [place] | [phone] | | [facility] | | [address] | | | - LABORATORY | | | | + + + + + | [facility] | [address] | [place] | | | [facility] | | [address], [facility] | | | - LABORATORY | [...]
--- OUTSIDE RECORDS SUMMARY | ~2020-03-24 | XMS | Encounter Summary ---
Demographics + + + | Address | [address] | | | [place] [address] | + + + | Home Phone [...] Organization | [facility] | | | and [place] | + + + | Address | Unknown | + + + | Phone | Unavailable | + + + Support + + + + + | Name | Relationship | Address | Phone | + + + + + | [employer] | ECON | [phone] | | | | | Unknown | | + + + + + Care Team Providers + +------+ + | Care Application Development Specialist Name | Role | Phone | [...] | hypertension (HCC) | | | | [place], | | | | | | [place] [address] | | | | | | [phone] | | | +--------+ + + + [...] | | | | | [place] [address] | | | | | | [phone] | | | | | | | | +--------+---------+ + + + | 04/30/ | Office | Sleep Medicine | Jacky Calderon PA | | | 2019 | Visit | | [address] | | | | | | [place] | | | | | | [address] | | | | | | | | +--------+---------+ + + + documented as of this encounter Visit Diagnoses + + | Diagnosis | + + | Pulmonary hypertension (HCC) Other chronic pulmonary heart diseases | + + documented in this encounter"
--- OUTSIDE RECORDS SUMMARY | ~2020-03-24 | XMS | Encounter Summary ---
Demographics + + + | Address | [address] | | | [place] [address] | + + + | Home Phone [...] | Organization | [facility] | | | and [place] | + + + | Address | Unknown | + + + | Phone | Unavailable | + + + Support + + + + + | Name | Relationship | Address | Phone | + + + + + | [employer] | ECON | [id number] | | | | | Unknown | | + + + + + Care Team Providers + +------+ + | Care Tricot Knitter Name | Role | Phone | + [...] [place], [place] | | | | | [address] | [address] | | | | | [phone] | [phone] | | | | | | | [...] | | | | | [place] [address] | | | | | | [phone] | | | | | | | [...]
--- OUTSIDE RECORDS SUMMARY | ~2020-03-24 | XMS | Encounter Summary ---
Demographics + + + | Address | [address] | | | [place] [address] | + + + | Home Phone [...] | Organization | [facility] | | | and [place] | + + + | Address | Unknown | + + + | Phone | Unavailable | + + + Support + + + + + | Name | Relationship | Address | Phone | + + + + + | [employer] | ECON | [id number] | | | | | Unknown | | + + + + + Care Team Providers + +------+ + | Care Forestry Technician Name | Role | Phone | [...] [place] | | | | | | [address] | | | | | | [phone] | | | +--------+ + + + [...] | | | | | [place] [address] | | | | | | [phone] | | | | | | | | +--------+---------+ + + + | 04/30/ | Office | Sleep Medicine | Jacky Calderon PA | | | 2019 | Visit | | [address] | | | | | | [place] | | | | | | [address] | | | | | | | [...] | LV systolic and diastolic functions NML, Flat [place] visually estimates | | | LVEF 60-65%. [...] | LV systolic and diastolic functions NML, [place] visually estimates | | | LVEF 60-65%. [...] pressures of | | | 10-15mmHg. MEASUREMENTS Transformation Architect: | | | Authenticated by: Avila Haynes DO Report Date/Time: -- | | | [id number] | | + + + + + | Procedure Note | + + | Andrade, Rad Conversion - 06/22/2019 10:54 AM PDT Patient Name: Julia Rowley of | | : 1965 Performing Physician: Avila Haynes | | DO INDICATIONS P | | ulmonary HTN CONCLUSIONS 1. Sinus rhythm. TDS. 2. Cardiac chamber dimensions | | grossly NML. LV systolic and diastolic functions NML, Flat [place] visually estimates LVEF | | 60-65%. RV [...] venous pressures of 10-15mmHg. | | MEASUREMENTS Transformation Architect: Nereydaticated by: Avila Moses | | Date/Time: -- [id number]:44 IMPRESSION: 1. Sinus rhythm. TDS. 2. Cardiac | | chamber dimensions grossly NML. LV systolic and diastolic functions NML, Flat Top | | visually estimates LVEF 60-65%. RV [...] | |MEASUREMENTS | | | | | |Transformation Architect: RUDI | |Authenticated by: Avila Haynes DO | |Report Date/Time: -- [id number] | | | |IMPRESSION: | |1. Sinus rhythm. TDS. 2. Cardiac chamber dimensions grossly NML. LV systolic and diastoli c functions NML, Flat Top visually estimates LVEF 60-65%. RV grossly NML. 3. Valves grossly N ML. No /AI. Mild MR, mild | |TR, trace PI. 4. No Pericardial effusion. | | 5. IVC plethoric, est systolic PAP 36-41mmHg, borderline. | + + documented in this encounter Visit Diagnoses Not on filedocumented in this encounter"
--- OUTSIDE RECORDS SUMMARY | ~2020-03-24 | XMS | Encounter Summary ---
Demographics + + + | Address | [address] | | | [place] [address] | + + + | Home Phone [...] + | Organization | [facility] | | | and [place] | + + + | Address | Unknown | + + + | Phone | Unavailable | + + + Support + + + + + | Name | Relationship | Address | Phone | + + + + + | [employer] | ECON | [id number] | | | | | Unknown | | + + + + + Care Team Providers + +------+ + | Care Transport Specialist Name | Role | Phone | + +------+ + | Yuni Shrestha | PCP | | + +------+ + Encounter Details +--------+ + + + + | Date | Type | Department | Care Team | Description | +--------+ + + + + | 03/20/ | Hospital | [facility] | Conversion | Diagnosis unknown | | 2016 | Encounter | CONVERSION DEP [address] | Transaction, | | | | | JAIMIE GUTIERREZ | Provider Unknown | | | | | [place] | [phone] | | | | | [address] | | | | | | [phone] | | | +--------+ + + + [...] + + + +---------+ + + | [place] Starch POWD | by Does not apply [...] | | | | | [place] [address] | | | | | | [phone] | | | | | | | | +--------+---------+ + + + | 04/30/ | Office | Sleep Medicine | Jacky Calderon PA | | | 2019 | Visit | | [address] | | | | | | [place] | | | | | | [address] | | | | | | | | +--------+---------+ + + + documented as of this encounter Visit Diagnoses + + | Diagnosis | + + | Diagnosis unknown Other unknown and unspecified cause of morbidity or mortality | + + documented in this encounter"
--- OUTSIDE RECORDS SUMMARY | ~2020-03-24 | XMS | Encounter Summary ---
Demographics + + + | Address | [address] | | | [place] [address] | + + + | Home Phone [...] + | Organization | [facility] | | | and [place] | + + + | Address | Unknown | + + + | Phone | Unavailable | + + + Support + + + + + | Name | Relationship | Address | Phone | + + + + + | [employer] | ECON | [phone] | | | | | Unknown | | + + + + + Care Team Providers + +------+ + | Care Paraprofessional Aide Teacher Name | Role | Phone | + +------+ + | Gela Trimble NP | PCP | | + +------+ + Encounter Details +--------+ + + + + | Date | Type | Department | Care Team | Description | +--------+ + + + + | 07/30/ | Hospital | [facility] | Fatou, | | | 2012 | Encounter | MED CTR SLEEP | Vera Farrar MD | | | | | [address] | | | | | | [place] | | | | | | [address] | | | | | | [phone] | | | +--------+ + + + [...] | + + + +---------+--------+ + | Knippa-3 Fatty | Take by mouth. | | [...] | | | | | [place] [address] | | | | | | [phone] | | | | | | | [...]
--- OUTSIDE RECORDS SUMMARY | ~2020-03-24 | XMS | Encounter Summary ---
Demographics + + + | Address | [address] | | | [place] [address] | + + + | Home Phone [...] | Organization | [facility] | | | and [place] | + + + | Address | Unknown | + + + | Phone | Unavailable | + + + Support + + + + + | Name | Relationship | Address | Phone | + + + + + | [employer] | ECON | [id number] | | | | | Unknown | | + + + + + Care Team Providers + +------+ + | Care Plate Colorer Name | Role | Phone | + [...] | | | | | | [place] [address] | | | | | | [phone] | | | +--------+ + + + [...] | | | | | [place] [address] | | | | | | [phone] | | | | | | | | +--------+---------+ + + + | 04/30/ | Office | Sleep Medicine | Jacky Calderon PA | | | 2020 | Visit | | [address] | | | | | | [place] | | | | | | [address] | | | | | | | [...]
--- OUTSIDE RECORDS SUMMARY | ~2020-03-24 | XMS | Encounter Summary ---
Demographics + + + | Address | [address] | | | [place] [address] | + + + | Home Phone [...] [facility] | | | and [place] | + + + | Address | Unknown | + + + | Phone | Unavailable | + + + Support + + + + + | Name | Relationship | Address | Phone | + + + + + | [employer] | ECON | [id number] | | | | | Unknown | | + + + + + Care Team Providers + +------+ + | Care Machine Puller And Laster Name | Role | Phone | + [...] + + | 07/26/ | [facility] | [facility] | Jacky Calderon PA | Primary central | | 2017 | Visit | SLEEP DISORDER [address] | [address] | sleep apnea (Primary | | | | [address] | [place] | Dx) | | | | [place] [address] | [address] | | | | | [phone] | | | +--------+---------+ + + + [...] PDTGo to [facility] in [facility] to get a Respironics AmaraView full face mask. Change to [facility] in [place], if not able to get this mask at [facility] in [facility] n. Wear BiPAP 100% of the time asleep. documented in this encounter Progress Notes Jacky Calderon PA - 07/26/2017 10:30 AM PDT Subjective: Patient ID: Margarita Rowley is a 51 y.o. female. HPI last office visit: 07/23/2016 date of polysomnography: 03/13/2013 at [facility] AHI: 64.2 O2%: n/a Machine type: Respironics BiPAP Auto Mask type: ResMed Quattro FX full face mask DME: [facility] in [place] pressure: 16/5 cm with backup rate of [...] be interested in us ing [facility] in [place] for her supplies. She says she has had some difficulty with gettin g supplies from [facility] in [place]. She is also napping during the day [...] Assessment: Problem #1: PRIMARY CENTRAL SLEEP APNEA ([id number]) This is controlled with BiPAP and oxygen [...] | | | | | [place] [address] | | | | | | [phone] | | | | | | | | +--------+---------+ + + + | 04/30/ | Office | Sleep Medicine | Jacky Calderon PA | | 2019 | Visit | | [address] | | | | | | [place] | | | | | | [address] | | | | | | | | +--------+---------+ + + + documented as of this encounter Visit Diagnoses + + | Diagnosis | + + | Primary central sleep apnea - Primary | + + documented in this encounter"
--- OUTSIDE RECORDS SUMMARY | ~2020-03-24 | XMS | Encounter Summary ---
Demographics + + + | Address | [address] | | | [place] [address] | + + + | Home Phone [...] | Organization | [facility] | | | and [place] | + + + | Address | Unknown | + + + | Phone | Unavailable | + + + Support + + + + + | Name | Relationship | Address | Phone | + + + + + | [employer] | ECON | [id number] | | | | | Unknown | | + + + + + Care Team Providers + +------+ + | Care Rate Analyst Name | Role | Phone | + +------+ + | Gela Trimble NP | PCP | | + +------+ + Encounter Details +--------+ + + + + | Date | Type | Department | Care Team | Description | +--------+ + + + + | 12/12/ | [facility] | [facility] | Jacky Calderon PA | | | 2013 | Encounter | MED CTR SLEEP | [address] | | | | | CENTER [address] | [place] | | | | | [place] | [address] | | | | | [address] | | | | | | [phone] | | | +--------+ + + + [...] + + + +---------+ + + | [place] Starch POWD | by Does not apply [...] + + + +---------+ + + | [place]-3 Fatty | Take by mouth. | | [...] | | | | | [place] [address] | | | | | | [phone] | | | | | | | | +--------+---------+ + + + | 04/30/ | Office | Sleep Medicine | Jacky Calderon PA | | | 2019 | Visit | | [address] | | | | | | [place] | | | | | | [address] | | | | | | | | +--------+---------+ + + + documented as of this encounter Visit Diagnoses Not on filedocumented in this encounter"
--- OUTSIDE RECORDS SUMMARY | ~2020-03-24 | XMS | Encounter Summary ---
Demographics + + + | Address | [address] | | | [place] [address] | + + + | Home Phone [...] | Organization | [facility] | | | and [place]am[place] | + + + | Address | Unknown | + + + | Phone | Unavailable | + + + Support + + + + + | Name | Relationship | Address | Phone | + + + + + | [employer] | ECON | [id number] | | | | | Unknown | | + + + + + Care Team Providers + +------+ + | Care Sighter Name | Role | Phone | + +------+ + | Gela Trimble NP | PCP | | + +------+ + Encounter Details +--------+ + + + + | Date | Type | Department | Care Team | Description | +--------+ + + + + | 08/27/ | Hospital | [facility] | Saharaenstein, | Primary pulmonary | | 2012 | Encounter | [facility] LABORATORY | Vera Farrar MD | hypertension (HCC) | | | | [address] | | | | | | [place] | | | | | | [address] | | | | | | [phone] | | | +--------+ + + + [...] | | | | | | | ([facility]) | | | | | | + + + +---------+ + + | buPROPion | Take 100 mg by mouth | | 0 | | | | (WELLBUTRIN) 100 mg | 2 times daily. | | | | 6 | | tablet | | | | | | + + + +---------+ + + | [place] Starch POWD | by Does not apply [...] + + + +---------+ + + | [place]-3 Fatty | Take by mouth. | | [...] | | | | | [place] [address] | | | | | | [phone] | | | | | | | | +--------+---------+ + + + | 04/30/ | Office | Sleep Medicine | Jacky Calderon PA | | | 2019 | Visit | | [address] | | | | | | [place] | | | | | | [phone] | | | | | | | [...] | | | | mg/dL | [facility] | | | | | | MEDICAL [...] [facility] | | | | | | STWniter CHARLES | | | | | | [...] [address] | [place] | [phone] | | [facility] | | [address] | | | - LABORATORY | | | | + + + + + | [facility] | [address] | [place] | | | [facility] | | [address], [facility] | | [...] + | [facility] | [address] | [place], [place] | [phone] | | [facility] | | [address] | | | - LABORATORY | | | | + + + + + | [facility] | [address] | [place], [place] | | | [facility] | | [address] [place] [address] | | | - LABORATORY | | | | + + + + + documented in this encounter Visit Diagnoses + + | Diagnosis | + + | Primary pulmonary hypertension (HCC) Primary pulmonary hypertension | + + documented in this encounter"
--- OUTSIDE RECORDS SUMMARY | ~2020-03-24 | XMS | Encounter Summary ---
Demographics + + + | Address | [address] | | | [place] [address] | + + + | Home Phone [...] Organization | [facility] | | | and [place]am[place] | + + + | Address | Unknown | + + + | Phone | Unavailable | + + + Support + + + + + | Name | Relationship | Address | Phone | + + + + + | [employer] | ECON | [id number] | | | | | Unknown | | + + + + + Care Team Providers + +------+ + | Care Environmental Health And Safety Intern Name | Role | Phone | [...] | | | Pulmonology | airway | [facility] [address] | MD | | | | | obstruction, | [address] | | | | | | not | [place], | | | | | | elsewhere | [place] [address] | | | | | | classified | Phone: | | | | | | Procedures | [phone] | | | | | | F/U | Fax: | | | | | | | [phone] | | +--------+--------+ + + + + Encounter Details +--------+---------+ + + + | Date | Type | Department | Care Team | Description | +--------+---------+ + + + | 08/08/ | Office | [facility] [place] | [place]enstein, | Primary pulmonary | | 2015 | Visit | PULMONARY [address] | Vera Farrar MD | hypertension | | | | [place], | | (Primary Dx); COPD | | | | [place] [address] | | (chronic obstructive | | | | [phone] | | pulmonary disease); | | | [...] to have a box delivered by the [employer]. Wear the finger probe through the night. Do the test on 5L bled in to th e BiPAP. Call the [email or web address] [facility] [employer] to have the box picked up the [...] follow up echocardiogram, which was done in [place] . Since their last visit she feels [...] Diagnosis Date COPD (chronic obstructive pulmonary disease) ([facility]) moderate, FEV1 1.40 (59%) Pulmonary hypertension ([facility]) severe, class 1, class 2, class 3 Bipolar disorder ([facility]) PTSD (post-traumatic stress disorder) Osteoarthritis Obstructive sleep apnea AHI 64.2 Vitamin D deficiency GERD (gastroesophageal reflux disease) Hypothyroidism Seizure disorder ([facility]) Developmental delay Hypoxemia on 2L at rest, 4L with exertion Female stress incontinence Pyelonephritis Hypertension Impulse control disorder Hyperlipidemia Obesity Alcohol abuse Cocaine abuse Past Surgical History Past Surgical History Procedure Laterality Date Mouth surgery 2 teeth removed Cardiac catherization Social History: History Social History Marital Status: Single Spouse Name: N/A Number of Children: N/A Years of Education: N/A Occupational History Disabled. [employer] Social History Main Topics Smoking status: Current [...] Concern None Social History Narrative Lives at [employer]. Allergies: Allergies Allergen Reactions Erythromycin Metronidazole Penicillins [...] TABS Take 2,000 Units by mouth Daily. [place] Starch POWD by Does not apply route [...] mg onto the skin every [address]-3 Fatty Acids (SEA-OMEGA 30) 1200 MG CAPS [...] echo in July with visit by local core driller helper. If further increase in estimated PASP by [...] made to ensure accuracy; however, inadvertent computerized firebreak cutter errors may be pre sent. documented in [...] | | | | | [place] [address] | | | | | | [phone] | | | | | | | | +--------+---------+ + + + | 04/30/ | Office | Sleep Medicine | Jacky Calderon PA | | | 2019 | Visit | | [address] | | | | | | [place] | | | | | | [address] | | | | | | | [...] + | [facility] | [address] | [place] | [phone] | | [facility] | | [address] | | | - LABORATORY | | [...] | | | | | | [facility] | | [...] | mL/min/1.73m2 | [facility] | | | IRISH | RATE,ESTIMATED | | MEDICAL | | | | mL/min/1.38i1Outt than | | CENTER - | | [...] [address] | [place] | [phone] | | [facility] | | [address] | | | - LABORATORY | | [...]
--- OUTSIDE RECORDS SUMMARY | ~2020-03-24 | XMS | Encounter Summary ---
Demographics + + + | Address | [address] | | | [place] [address] | + + + | Home Phone [...] | [facility] | | | and [place]am[place] | + + + | Address | Unknown | + + + | Phone | Unavailable | + + + Support + + + + + | Name | Relationship | Address | Phone | + + + + + | [employer] | ECON | [id number] | | | | | Unknown | | + + + + + Care Team Providers + +------+ + | Care Fulfillment Representative Name | Role | Phone | [...] MD | oximetry) | | | | [place], | | | | | | [place] [address] | | | | | | [phone] | | | +--------+ + + + [...] | | | | | [place] [address] | | | | | | [phone] | | | | | | | | +--------+---------+ + + + | 04/30/ | Office | Sleep Medicine | Jacky Calderon PA | | | 2019 | Visit | | [address] | | | | | | [place] | | | | | | [address] | | | | | | | [...]
--- OUTSIDE RECORDS SUMMARY | ~2020-03-24 | XMS | Encounter Summary ---
Demographics + + + | Address | [address] | | | [place] [address] | + + + | Home Phone [...] | Organization | [facility] | | | and [place]am[place] | + + + | Address | Unknown | + + + | Phone | Unavailable | + + + Support + + + + + | Name | Relationship | Address | Phone | + + + + + | [employer] | ECON | [id number] | | | | | Unknown | | + + + + + Care Team Providers + +------+ + | Care Client Portfolio Manager Name | Role | Phone [...] | hypertension (HCC) | | | | [place], | | (Primary Dx); | | | | [place] [address] | | Obstructive sleep | | | | [phone] | | apnea; Hypoxemia; | | | [...] Care [facility] [address] [place], [address] HPI Margarita Rowley is a 48 y.o. [...] Years of Education: N/A Occupational History Disabled. [employer] Social History Main Topics Smoking status: Former Smoker -- 1.0 packs/day for 20 years Types: Cigarettes Quit date: 05/14/2013 Smokeless tobacco: None Alcohol Use: Yes Comment: history of abuse Drug Use: Yes Special: Cocaine Comment: history of cocaine use Sexually Active: None Other Topics Concern None Social History Narrative Lives at [employer]. Allergies: Allergies Allergen Reactions Erythromycin Metronidazole Penicillins [...] TABS Take 2,000 Units by mouth Daily. [place] Starch POWD by Does not apply route [...] 100 mg by mouth 2 times daily. [place]-3 Fatty Acids (SEA-OMEGA 30) 1200 MG CAPS [...] made to ensure accuracy; however, inadvertent computerized watershed manager errors may be pre sent. documented [...] | | | | | [place] [address] | | | | | | [phone] | | | | | | | | +--------+---------+ + + + | 04/30/ | Office | Sleep Medicine | Jacky Calderon PA | | | 2019 | Visit | | [address] | | | | | | [place] | | | | | | [address] | | | | | | | [...] | [facility] | | | | [facility] | | MEDICAL | | | [...] [address] | [place] | [phone] | | [facility] | | [address] | | | - LABORATORY | | | | + + + + + | [facility] | [address] | [place], [place] | | | [facility] | | [address], [facility] | [...]
--- OUTSIDE RECORDS SUMMARY | ~2020-03-24 | XMS | Encounter Summary ---
Demographics + + + | Address | [address] | | | [place] [address] | + + + | Home Phone [...] | Organization | [facility] | | | and [place]am[place] | + + + | Address | Unknown | + + + | Phone | Unavailable | + + + Support + + + + + | Name | Relationship | Address | Phone | + + + + + | [employer] | ECON | [id number] | | | | | Unknown | | + + + + + Care Team Providers + +------+ + | Care Retail Wireless Sales Consultant Name | Role | Phone | + +------+ + | Gela Trimble SOFTWARE DEVELOPMENT SPECIALIST | PCP | | + +------+ + [...] | Primary | Offenstein, | [address] | | | | | pulmonary | Vera B, | [place], | | | | | hypertension | MD [address] | [place] | | | | | (HCC) | [address] | [address] | | | | | Procedures | MARIA [place]OLORESA [place], | Phone: | | | | | ECHO | [place] [address] | [phone] | | | | | Complete | | Fax: | | | | | | | [phone] | +--------+--------+ + + + + Reason [...] | Primary | Offenstein, | [address] | | | | | pulmonary | Vera B, | [place], | | | | | hypertension | MD [address] | [place] | | | | | ([facility]) | [address] | [address] | | | | | Procedures | MARIA DOLORESA MARIA DOLORESA, | Phone: | | | | | ECHO | [place] [address] | [phone] | | | | | Complete | | Fax: | | | | | | | [phone] | +--------+--------+ + + + + Encounter Details +--------+ + + + + | Date | Type | Department | Care Team | Description | +--------+ + + + + | 09/11/ | Hospital | [facility] | Offenstein, | Primary pulmonary | | 2013 | Encounter | MED CTR ECHO [address] | Vera Farrar MD | hypertension | | | | [place] | [place]aya [place], | | | | | [place] [address] | Technologist | | | | | [phone] | | | +--------+ + + + [...] + + + +---------+ + + | [place] Starch POWD | by Does not apply [...] + + + +---------+ + + | [place]-3 Fatty | Take by mouth. | | [...] | | | | | [place] [address] | | | | | | [phone] | | | | | | | | +--------+---------+ + + + | 04/30/ | Office | Sleep Medicine | Jacky Calderon PA | | | 2019 | Visit | | [address] | | | | | | [place] | | | | | | [address] | | | | | | | [...] Performed At | + + + | [facility] ECHOCARDIOGRAM REPORT | [place] | | STUDY DATE: 09/11/2014 PATIENT NAME: Margarita Rowley : | [facility] | | 1965 PCP: Gela Trimble NP | [facility] | | CLINICAL HISTORY/DIAGNOSIS: Pulmonary [...] | Ananth Salguero MD PhD [facility] 09/11/2014 10:45 | | | Hand Molder Meat: Hung Caro, RDCS, RVT, RDMS | | + + + + + | Procedure Note | + + | Roberto Salguero MD - 09/12/2014 9:12 AM [facility] | | CENTERECHOCARDIOGRAM REPORTSTUDY DATE: 09/11/2014PATIENT NAME: Margarita Vora: | | 1965MRN: [id number]: Gela Trimble, [facility]AGNOSIS: | | Pulmonary hypertensionA [...] PP mmHgLA volume: 30 mLLA index: 16 mL/t2Nosggj Inflow DT: 272 | | msIVRT: 110 msValsalva: Not neededPWDTI S wave: 7.2 cm/sPWDTI E wave: 8.0 cm/sPWDTI | | A wave: 10.4 cm/sE/A Ratio: 0.769E/E Ratio: 10.63Signed by: Artie Salguero MD | | PhD FACC 09/11/2014 10:45 Hand Molder Meat: Hung Caro, RDCS, RVT, RDMS | |Tricuspid [...] 09/11/2014 10:45 | | | | | |Hand Molder Meat: Hung Caro, RDCS, RVT, RDMS | + + + + + + + | Performing | Address | City/State/Zipcode | Phone Number | | Organization | | | | + + + + + | [facility] | [address] | [place] | [phone] | | [facility] | | [address] | | | - IMAGING | | [...]
--- OUTSIDE RECORDS SUMMARY | ~2020-03-24 | XMS | Encounter Summary ---
Demographics + + + | Address | [address] | | | [place] [address] | + + + | Home Phone [...] | Organization | [facility] | | | and [place]am[place] | + + + | Address | Unknown | + + + | Phone | Unavailable | + + + Support + + + + + | Name | Relationship | Address | Phone | + + + + + | [employer] | ECON | [phone] | | | | | Unknown | | + + + + + Care Team Providers + +------+ + | Care Assembler Small Products Name | Role | Phone | [...] [place], [place] | | | | | [address] | [address] | | | | | [phone] | [phone] | | | | | | | [...] | | | | | [place] [address] | | | | | | [phone] | | | | | | | | +--------+---------+ + + + | 04/30/ | Office | Sleep Medicine | Jacky Calderon PA | | | 2020 | Visit | | [address] | | | | | | [place] | | | | | | [address] | | | | | | | | +--------+---------+ + + + documented as of this encounter Visit Diagnoses Not on filedocumented in this encounter"
--- OUTSIDE RECORDS SUMMARY | ~2020-03-24 | XMS | Encounter Summary ---
Demographics + + + | Address | [address] | | | [place] [address] | + + + | Home Phone [...] + | [employer] | ECON | [id number] | | | | | Unknown | | + + + + + Care Team Providers + +------+ + | Care Industrial Renderer Name | Role | Phone | + [...] W | Cancellation) | | | | [place], | [address] [place] | | | | | [place] [address] | [place] [address] | | | | | [phone] | [phone] | | | | | | | [...] | | | | | [place] [address] | | | | | | [phone] | | | | | | | | +--------+---------+ + + + | 04/30/ | Office | Sleep Medicine | Jacky Calderon PA | | | 2019 | Visit | | [address] | | | | | | [place] | | | | | | [address] | | | | | | | | +--------+---------+ + + + documented as of this encounter Visit Diagnoses Not on filedocumented in this encounter"
--- OUTSIDE RECORDS SUMMARY | ~2020-03-24 | XMS | Encounter Summary ---
Demographics + + + | Address | [address] | | | [place] [address] | + + + | Home Phone [...] | Organization | [facility] | | | and [place]am[place] | + + + | Address | Unknown | + + + | Phone | Unavailable | + + + Support + + + + + | Name | Relationship | Address | Phone | + + + + + | [employer] | ECON | [id number] | | | | | Unknown | | + + + + + Care Team Providers + +------+ + | Care Borough Coordinator Name | Role | Phone | [...] + | 08/27/ | Office | [facility] | Offenstein, | Primary pulmonary | | 2012 | Visit | PULMONARY [address] | Vera Farrar MD | hypertension (HCC) | | | | [place], | | (Primary Dx); COPD | | | | [place] [address] | | (chronic obstructive | | | | [phone] | | pulmonary disease) | | | [...] MD [place] Pulmonary and Critical Care [facility] [address] [place], [address] HPI Margarita Rowley is a 47 y.o. female patient of Gela Trimble [facility] here today for follow up of [...] Years of Education: N/A Occupational History Disabled. [employer] Social History Main Topics Smoking status: Former Smoker -- 1.0 packs/day for 20 years Types: Cigarettes Quit date: 05/14/2013 Smokeless tobacco: None Alcohol Use: Yes history of abuse Drug Use: Yes Special: Cocaine history of cocaine use Sexually Active: None Other Topics Concern None Social History Narrative Lives at [employer]. Allergies: Allergies Allergen Reactions Erythromycin Metronidazole Penicillins [...] Active Take 2,000 Units by mouth Daily. [place] Starch POWD Active by Does not apply [...] patch onto the skin every 24 hours. [place]-3 Fatty Acids (SEA-OMEGA 30) 1200 MG CAPS [...] made to ensure accuracy; however, inadvertent computerized architecture instructor errors may be pre sent. documented in [...] | | | | | [place] [address] | | | | | | [phone] | | | | | | | | +--------+---------+ + + + | 04/30/ | Office | Sleep Medicine | Jacky Calderon PA | | | 2019 | Visit | | [address] | | | | | | [place] | | | | | | [address] | | | | | | | [...] [address] | [place] | [phone] | | [facility] | | [address] | | | - LABORATORY | | | | + + + + + | [facility] | [address] | [place] | | | [facility] | | [address] | [...] + | [facility] | [address] | [place], [place] | [phone] | | [facility] | | [address] | | | - LABORATORY | | | | + + + + + | [facility] | [address] | [place], [place] | | | [facility] | | [address] [place] [address] | | | - LABORATORY | | [...]
--- OUTSIDE RECORDS SUMMARY | ~2020-03-24 | XMS | Encounter Summary ---
Demographics + + + | Address | [address] | | | [place] [address] | + + + | Home Phone [...] | Organization | [facility] | | | and Abram[place] | + + + | Address | Unknown | + + + | Phone | Unavailable | + + + Support + + + + + | Name | Relationship | Address | Phone | + + + + + | [employer] | ECON | [phone] | | | | | Unknown | | + + + + + Care Team Providers + +------+ + | Care Steam Locomotive Firer/Fireman Name | Role | Phone | + [...] Farrar MD | | | | | [place], | | | | | | [place] [address] | | | | | | [phone] | | | +--------+ + + + [...] | | | | | [place] [address] | | | | | | [phone] | | | | | | | | +--------+---------+ + + + | 04/30/ | Office | Sleep Medicine | Jacky Calderon PA | | | 2020 | Visit | | [address] | | | | | | [place] | | | | | | [address] | | | | | | | | +--------+---------+ + + + documented as of this encounter Visit Diagnoses Not on filedocumented in this encounter"
--- OUTSIDE RECORDS SUMMARY | ~2020-03-24 | XMS | Encounter Summary ---
Demographics + + + | Address | [address] | | | [place] [address] | + + + | Home Phone [...] Providers + +------+ + | Care Service Desk Manager Name | Role | Phone | [...] | | | Medicine at | [facility], | | | | | [facility] | [place] [address] | | | | | [address] | [phone] | | | | | [facility] | | | | | | Pavilion, 3rd Floor | | | | | | [place], [place] | | | | | | [address] | | | | | | [phone] | | | +--------+ + + + [...]
--- OUTSIDE RECORDS SUMMARY | ~2020-03-24 | XMS | Encounter Summary ---
Demographics + + + | Address | [address] | | | [place] [address] | + + + | Home Phone [...] + + + | Author | [facility] | + + + | Organization | [facility] | + + + | Address | Unknown | + + + | Phone | Unavailable | + + + Support + + +---------+ + | Name | Relationship | Address | Phone | + + +---------+ + | Lidia Thibodeaux | ECON | Unknown | | + + +---------+ + Care Team Providers + +------+ + | Care Furrier Designer Name | Role | Phone | [...] | | | | | Floor | [place], [place] | | | | | | [place], [place] | [address] | | | | | | [address] | Phone: | | | | | | Phone: | [phone] | | | | | | [phone] | Fax: | | | | | | Fax: | [phone] | | | | | | [phone] | | +--------+--------+ + + + + Encounter Details +--------+ + + + + | Date | Type | Department | Care Team | Description | +--------+ + + + + | 03/27/ | Outside | Neurophysiology | Mustapha Vidal, | | | 2012 | Referral | EEG at [facility] [address] | MD [place] | | | | Order | [facility] | [facility] [address] | | | | | [employer] | [address] | | | | | Cool, [address]th Floor | [place] [address] | | | | | [place], [place] | [phone] | | | | | [address] | | | | | | [phone] | | | +--------+ + + + [...] 1965 Medical | | | Record Number: [id number] Date of Test: 03/27/2013 Place of | | | Service: [facility] Department: EEG [facility] [id number] | | | ROUTINE EEG - [facility] Reason for Exam: Evaluate for | | [...] | Clinical Events: No pushbutton events or scada technician notes of unusual | | | [...] Laws M.D. | | | Suggested CPT: 35678 - EEG Routine Awake & Asleep Suggested Dx: | | | 780.39-Convulsions | | + + + documented in this encounter Visit Diagnoses Not on filedocumented in this encounter"
--- OUTSIDE RECORDS SUMMARY | ~2020-03-24 | XMS | Encounter Summary ---
Demographics + + + | Address | [address] | | | [place] [address] | + + + | Home Phone [...] Organization | [facility] | | | and [place]am[place] | + + + | Address | Unknown | + + + | Phone | Unavailable | + + + Support + + + + + | Name | Relationship | Address | Phone | + + + + + | [employer] | ECON | [phone] | | | | | Unknown | | + + + + + Care Team Providers + +------+ + | Care Log Yard Derrick Operator Name | Role | Phone | [...] | hypertension (HCC) | | | | [place], | | (Primary Dx); | | | | [place] [address] | | Obstructive sleep | | | | [phone] | | apnea; COPD (chronic | | [...] Critical Care [facility] [address] [place], [address] [facility] Keo Rowley is a 47 [...] get an appointment with Dr. Rivera in [place], which is next week. Initially appar ently [...] Years of Education: N/A Occupational History Disabled. Rentabilities Social History Main Topics Smoking status: Former Smoker -- 1.0 packs/day for 20 years Types: Cigarettes Quit date: 05/14/2013 Smokeless tobacco: None Alcohol Use: Yes history of abuse Drug Use: Yes Special: Cocaine history of cocaine use Sexually Active: None Other Topics Concern None Social History Narrative Lives at [employer]. Allergies: Allergies Allergen Reactions Erythromycin Metronidazole Penicillins [...] Active Take 2,000 Units by mouth Daily. [place] Starch POWD Active by Does not apply [...] patch onto the skin every 24 hours. [place]-3 Fatty Acids (SEA-OMEGA 30) 1200 MG CAPS [...] autoantibody IgG Latest Range: <1.0 AI <0.2 COMPOTYPE OPERATOR Autoantibody Latest Range: <1.0 AI 0.4 [place] [...] sooner with concerns. CC: Gela Guerrero C, JET MECHANIC, Lashae Rivera MD Portions of this report were transcribed using voice recognition software. Every effort wa s made to ensure accuracy; however, inadvertent computerized fruit rancher errors may be pre sent. documented in [...] | | | | | [place] [address] | | | | | | [phone] | | | | | | | | +--------+---------+ + + + | 04/30/ | Office | Sleep Medicine | Jacky Calderon PA | | | 2019 | Visit | | [address] | | | | | | [place] | | | | | | [address] | | | | | | | [...]
--- OUTSIDE RECORDS SUMMARY | ~2020-03-24 | XMS | Encounter Summary ---
Demographics + + + | Address | [address] | | | [place] [address] | + + + | Home Phone [...] + + + | Organization | and [facility] | | | and [place] | + + + | Address | Unknown | + + + | Phone | Unavailable | + + + Support + + + + + | Name | Relationship | Address | Phone | + + + + + | [employer] | ECON | [id number] | | | | | Unknown | | + + + + + Care Team Providers + +------+ + | Care Antenna Design Engineer Name | Role | Phone [...] | Primary | [place], | [address] | | | | | pulmonary | Vera B, | [place], | | | | | hypertension | MD [address] | [place] | | | | | ([facility]) | [address] | [address] | | | | | Procedures | [place], | Phone: | | | | | ECHO | [place] [address] | [phone] | | | | | Complete [place] | | Fax: | | | | | ECHO HEART | | [phone] | | | | | XTHORACIC,[place] | | | | | | | MPLETE W | | | | | | | DOPPLER IN | | | | | | [...] | hypertension (HCC); | | | | [address] [place], | | [place] (obstructive | | | | [place] [address] | | sleep apnea); COPD | | | | [phone] | | (chronic obstructive | | | [...] 1200 feet regularly. Please take her to [facility] monthly for urine tests. Get the printed [...] Diagnosis Date COPD (chronic obstructive pulmonary disease) ([facility]) moderate, FEV1 1.40 (59%) Pulmonary hypertension ([facility]) severe, class 1, class 2, class 3 Bipolar disorder ([facility]) PTSD (post-traumatic stress disorder) Osteoarthritis Obstructive sleep apnea AHI 64.2 Vitamin D deficiency GERD (gastroesophageal reflux disease) Hypothyroidism Seizure disorder ([facility]) Developmental delay Hypoxemia on 2L at rest, 4L with exertion Female stress incontinence Pyelonephritis Hypertension Impulse control disorder Hyperlipidemia Obesity Alcohol abuse Cocaine abuse Past Surgical History Past Surgical History Procedure Laterality Date Mouth surgery 2 teeth removed Cardiac catherization Social History: History Social History Marital Status: Single Spouse Name: N/A Number of Children: N/A Years of Education: N/A Occupational History Disabled. [employer] Social History Main Topics Smoking status: Current [...] Concern None Social History Narrative Lives at [facility]. Allergies: Allergies Allergen Reactions Erythromycin Metronidazole Penicillins [...] TABS Take 2,000 Units by mouth Daily. [place] Starch POWD by Does not apply route [...] mg onto the skin every 24 hours. [place]-3 Fatty Acids (SEA-OMEGA 30) 1200 MG CAPS [...] her caregivers to take [facility] to [facility] [place] monthly to have this done. HCG, Urine, [...] and lab slip given to take to [facility]. She was advised to call if new pulmonary symptoms were to develop. Return to clinic in July, or sooner with concerns. CC: VIKAS Galicia, Lashae Rivera MD Portions of this report were transcribed using voice recognition software. Every effort wa s made to ensure accuracy; however, inadvertent computerized sr. operations manager errors may be pre sent. documented [...] | | | | | [place] [address] | | | | | | [phone] | | | | | | | | +--------+---------+ + + + | 04/30/ | Office | Sleep Medicine | Jacky Calderon PA | | | 2019 | Visit | | [address] | | | | | | [place] | | | | | | [address] | | | | | | | [...]
--- OUTSIDE RECORDS SUMMARY | ~2020-03-24 | XMS | Encounter Summary ---
Demographics + + + | Address | [address] | | | [place] [address] | + + + | Home Phone [...] | Organization | [facility] | | | and [place]am[place] | + + + | Address | Unknown | + + + | Phone | Unavailable | + + + Support + + + + + | Name | Relationship | Address | Phone | + + + + + | [employer] | ECON | [id number] | | | | | Unknown | | + + + + + Care Team Providers + +------+ + | Care Ecd Name | Role | Phone | + [...] + + | 07/26/ | [facility] | Jacky Calderon PA | Primary central | | 2017 | Visit | SLEEP DISORDER 401 | [address] | sleep apnea (Primary | | | | [address] | [place] | Dx) | | | | [place] [address] | [address] | | | | | [phone] | | | +--------+---------+ + + + [...] AM PDTGo to [facility] to get a Respironics AmaraView full face mask. Change to [facility] in [place], if not able to get this mask at [facility] in [facility] n. Wear BiPAP 100% of the time asleep. documented in this encounter Progress Notes Jacky Calderon PA - 07/26/2017 10:30 AM PDT Subjective: Patient ID: Margarita Rowley is a 51 y.o. female. HPI last office visit: 07/23/2016 date of polysomnography: 03/13/2013 at [facility] AHI: 64.2 O2%: n/a Machine type: Respironics BiPAP Auto Mask type: ResMed Quattro FX full face mask DME: [facility] in [place] pressure: 16/5 cm with backup rate of [...] be interested in us ing [facility] in [place] for her supplies. She says she has had some difficulty with gettin g supplies from [facility] in [place]. She is also napping during the day [...] Assessment: Problem #1: PRIMARY CENTRAL SLEEP APNEA ([id number]) This is controlled with BiPAP and oxygen [...] | | | | | [place] [address] | | | | | | [phone] | | | | | | | | +--------+---------+ + + + | 04/30/ | Office | Sleep Medicine | Jacky Calderon PA | | 2019 | Visit | | [address] | | | | | | [place] | | | | | | [address] | | | | | | | | +--------+---------+ + + + documented as of this encounter Visit Diagnoses + + | Diagnosis | + + | Primary central sleep apnea - Primary | + + documented in this encounter"
--- OUTSIDE RECORDS SUMMARY | ~2020-03-24 | XMS | Encounter Summary ---
Demographics + + + | Address | [address] | | | [place] [address] | + + + | Home Phone [...] + + | Organization | [facility] | | | and [place]am[place] | + + + | Address | Unknown | + + + | Phone | Unavailable | + + + Support + + + + + | Name | Relationship | Address | Phone | + + + + + | [employer] | ECON | [id number] | | | | | Unknown | | + + + + + Care Team Providers + +------+ + | Care Contact Center Consultant Name | Role | Phone | + +------+ + | Gela Trimble NP | PCP | | + +------+ + Reason for Visit +--------+ + | Reason | Comments | +--------+ + | Other | PA# for prescription Tim CALDERON#[id number] from 08.07.13-08.07.14 | +--------+ + Encounter Details +--------+ + + + + | Date | Type | Department | Care Team | Description | +--------+ + + + + | 08/08/ | Telephone | [facility] | Valeria Reed, | Other (PA# for | | 2012 | | PULMONARY [address] | RN | prescription Adcirca | | | | [place], | | PA#[id number] from | | | | [place] [address] | | [id number]) | | | | [phone] | | | +--------+ + + + [...] | | | | | [place] [address] | | | | | | [phone] | | | | | | | [...]
--- OUTSIDE RECORDS SUMMARY | ~2020-03-24 | XMS | Encounter Summary ---
Demographics + + + | Address | [address] | | | [place] [address] | + + + | Home Phone [...] Organization | [facility] | | | and [place]am[place] | + + + | Address | Unknown | + + + | Phone | Unavailable | + + + Support + + + + + | Name | Relationship | Address | Phone | + + + + + | [employer] | ECON | [id number] | | | | | Unknown | | + + + + + Care Team Providers + +------+ + | Care Pharmacy Care Coordinator Name | Role | Phone | [...] [place], | | | | | | [place] [address] | | | | | | [phone] | | | +--------+ + + + [...] | | | | | [place] [address] | | | | | | [phone] | | | | | | | | +--------+---------+ + + + | 04/30/ | Office | Sleep Medicine | Jacky Calderon PA | | | 2019 | Visit | | [address] | | | | | | [place] | | | | | | [address] | | | | | | | | +--------+---------+ + + + documented as of this encounter Visit Diagnoses Not on filedocumented in this encounter"
--- OUTSIDE RECORDS SUMMARY | ~2020-03-24 | XMS | Encounter Summary ---
Demographics + + + | Address | [address] | | | [place] [address] | + + + | Home Phone | | + + + | Preferred Language | Unknown | + + + | Marital Status | Single | + + + | Yarsanism Affiliation | 1009 | + + + | Race | Unknown | + + + | Ethnic Group | Unknown | + + + Author + + + | Author | [facility] | | | and [place]am[place] | + + + | Organization | [facility] | | | and [place] | + + + | Address | Unknown | + + + | Phone | Unavailable | + + + Support + + + + + | Name | Relationship | Address | Phone | + + + + + | [employer] | ECON | [id number] | | | | | Unknown | | + + + + + Care Team Providers + +------+ + | Care Solar Pool Heating Installer Name | Role | Phone | [...] MD | oximetry) | | | | [place], | | | | | | [place] [address] | | | | | | [phone] | | | +--------+ + + + [...] | | | | | [place] [address] | | | | | | [phone] | | | | | | | | +--------+---------+ + + + | 04/30/ | Office | Sleep Medicine | Jacky Calderon PA | | | 2019 | Visit | | [address] | | | | | | [place] | | | | | | [address] | | | | | | | [...]
--- OUTSIDE RECORDS SUMMARY | ~2020-03-24 | XMS | Encounter Summary ---
Demographics + + + | Address | [address] | | | [place] [address] | + + + | Home Phone [...] + + + | Organization | and [facility] | | | and [place] | + + + | Address | Unknown | + + + | Phone | Unavailable | + + + Support + + + + + | Name | Relationship | Address | Phone | + + + + + | [employer] | ECON | [phone] | | | | | Unknown | | + + + + + Care Team Providers + +------+ + | Care Chinchilla Machine Operator Name | Role | Phone | + +------+ + | Yuni Shrestha | PCP | | + +------+ + Encounter Details +--------+ + + + + | Date | Type | Department | Care Team | Description | +--------+ + + + + | 06/30/ | Abstract | [facility] [place] | [facility], | | | 2015 | | GASTROENTEROLOGY | BRITTANY Maddox [address] | | | | | [address] [place] | [place], [place] [address] | | | | | [address] [place], [place] | [place], [place] | | | | | [address] | [address] | | | | | [phone] | | | +--------+ + + + [...] | | | | | [place] [address] | | | | | | [phone] | | | | | | | | +--------+---------+ + + + | 04/30/ | Office | Sleep Medicine | [place], Jacky D, PA | | | 2020 | Visit | | [address] | | | | | | [place] | | | | | | [address] | | | | | | | [...]
--- OUTSIDE RECORDS SUMMARY | ~2020-03-24 | XMS | Encounter Summary ---
Demographics + + + | Address | [address] | | | [place] [address] | + + + | Home Phone [...] | Organization | [facility] | | | and [place]am[place] | + + + | Address | Unknown | + + + | Phone | Unavailable | + + + Support + + + + + | Name | Relationship | Address | Phone | + + + + + | [employer] | ECON | [phone] | | | | | Unknown | | + + + + + Care Team Providers + +------+ + | Care Key Account Coordinator Name | Role | Phone | + +------+ + | Yuni Shrestha | PCP | | + +------+ + Encounter Details +--------+ + + + + | Date | Type | Department | Care Team | Description | +--------+ + + + + | 06/11/ | Abstract | [facility] [place] | [facility], | | | 2016 | | GASTROENTEROLOGY | BRITTANY Maddox [address] | | | | | [address] [place] | [place], [place] [address] | | | | | [address] [place], [place] | [place], [place] | | | | | [address] | [address] | | | | | [phone] | | | +--------+ + + + [...] | | | | | [place] [address] | | | | | | [phone] | | | | | | | | +--------+---------+ + + + | 04/30/ | Office | Sleep Medicine | Jacky Calderon PA | | | 2020 | Visit | | [address] | | | | | | [place] | | | | | | [address] | | | | | | | | +--------+---------+ + + + documented as of this encounter Visit Diagnoses Not on filedocumented in this encounter"
--- OUTSIDE RECORDS SUMMARY | ~2020-03-24 | XMS | Encounter Summary ---
Demographics + + + | Address | [address] | | | [place] [address] | + + + | Home Phone | | + + + | Preferred Language | Unknown | + + + | Marital Status | Single | + + + | Latter Day Affiliation | NRP | + + + [...] Team Providers + +------+ + | Care Range Aid Name | Role | Phone | + +------+ + | Gela Trimble COMBATANT DIVER OFFICER | PCP | | + +------+ + [...] | | | | | | | [address] | | | | | | | [place] | | | | | | | Mushtaq Mailcode: | | | | | | | [address] [facility] | | | | | | | Hospital | | | | | | | [place], [place] | | | | | | | [address] | | | | | | | Phone: | | | | | | | [phone] | | | | | | | Fax: | | | | | | | [phone] | +--------+--------+ + + + + Encounter Details +--------+ + + + + | Date | Type | Department | Care Team | Description | +--------+ + + + + | 05/07/ | Results/Int | Pulmonary Function | | Unspecified asthma | | 2012 | erpretation | Lab at [facility] [address] | | (Primary Dx) | | | | [address] | | | | | | [facility] | | | | | | [place], [place] | | | | | | [address] | | | | | | [phone] | | | +--------+ + + + [...] | + +--------+ + + + | [place] SPIROMETRY TEST | Routin | 05/08/2013 | [...]
--- OUTSIDE RECORDS SUMMARY | ~2020-03-24 | XMS | Encounter Summary ---
Demographics + + + | Address | [address] | | | [place] [address] | + + + | Home Phone [...] | Organization | [facility] | | | and [place]am[place] | + + + | Address | Unknown | + + + | Phone | Unavailable | + + + Support + + + + + | Name | Relationship | Address | Phone | + + + + + | [employer] | ECON | [id number] | | | | | Unknown | | + + + + + Care Team Providers + +------+ + | Care Mobile Device Engineer Name | Role | Phone | [...] | hypertension (HCC) | | | | [place], | | (Primary Dx); | | | | [place] [address] | | Obstructive sleep | | | | [phone] | | apnea; COPD (chronic | | [...] MD Elo Bernardo Pulmonary and Critical Care [facility] [address] [place], [address] [facility] Keo Rowley is a 47 y.o. female [...] get an appointment with Dr. Rivera in [place], which is next week. Initially appar ently [...] Years of Education: N/A Occupational History Disabled. [employer] Social History Main Topics Smoking status: Former Smoker -- 1.0 packs/day for 20 years Types: Cigarettes Quit date: 05/14/2013 Smokeless tobacco: None Alcohol Use: Yes history of abuse Drug Use: Yes Special: Cocaine history of cocaine use Sexually Active: None Other Topics Concern None Social History Narrative Lives at [employer]. Allergies: Allergies Allergen Reactions Erythromycin Metronidazole Penicillins [...] Active Take 2,000 Units by mouth Daily. [place] Starch POWD Active by Does not apply [...] patch onto the skin every 24 hours. [place]-3 Fatty Acids (SEA-OMEGA 30) 1200 MG CAPS [...] autoantibody IgG Latest Range: <1.0 AI <0.2 SPOOL HAULER Autoantibody Latest Range: <1.0 AI 0.4 ROWLEY [...] sooner with concerns. CC: Gela Guerrero C, DRAFTER CONSTRUCTION, Lashae Rivera MD Portions of this report were transcribed using voice recognition software. Every effort wa s made to ensure accuracy; however, inadvertent computerized cost specialist errors may be pre sent. documented in t his encounter Plan of Treatment +--------+---------+ + + + | Date | Type | Specialty | Care Team | Description | +--------+---------+ + + + | 04/16/ | Office | Pulmonology | Helen Astudillo | | | 2019 | Visit | | MD [address] | | | | | | [address] | | | | | | [place] [address] | | | | | | [phone] | | | | | | | | +--------+---------+ + + + | 04/30/ | Office | Sleep Medicine | Jacky Calderon PA | | | 2019 | Visit | | [address] | | | | | | [place] | | | | | | [address] | | | | | | | [...]
--- OUTSIDE RECORDS SUMMARY | ~2020-03-24 | XMS | Encounter Summary ---
Demographics + + + | Address | [address] | | | [place] [address] | + + + | Home Phone [...] | Organization | [facility] | | | and [place] | + + + | Address | Unknown | + + + | Phone | Unavailable | + + + Support + + + + + | Name | Relationship | Address | Phone | + + + + + | [employer] | ECON | [id number] | | | | | Unknown | | + + + + + Care Team Providers + +------+ + | Care Property Management Specialist Name | Role | Phone [...] | Primary | [place], | [address] | | | | | pulmonary | Vera B, | [place], | | | | | hypertension | MD [address] | [place] | | | | | ([facility]) | [address] | [address] | | | | | Procedures | [place], | Phone: | | | | | ECHO | [place] [address] | [phone] | | | | | Complete [place] | | Fax: | | | | | ECHO HEART | | [phone] | | | | | XTHORACIC,[place] | | | | | | | [address] | | | | | | | [place] | | | | | | | [...] | | | Pulmonology | airway | SHARED SERVICES MANAGER [address] | MD | | | | | obstruction, | [place] | | | | | | not | [address] | | | | | | elsewhere | [place], | | | | | | classified | [place] [address] | | | | | | Procedures | Phone: | | | | | | F/U | [phone] | | | | | | | Fax: | | | | | | | [phone] | | +--------+--------+ + + + + Encounter Details +--------+---------+ + + + | Date | Type | Department | Care Team | Description | +--------+---------+ + + + | 03/12/ | [facility] [place] | [place], | Primary pulmonary | | 2014 | Visit | PULMONARY [address] | Vera Farrar MD | hypertension; | | | | [place], | | Exercise hypoxemia | | | | [place] [address] | | (HCC); Sleep related | | | | [phone] | | hypoxemia; COPD | | | [...] [facility] She is also on her BiPAP machine, [...] COPD (chronic obstructive pulmonary disease) ([facility]) moderate, FEV1 1.40 (59%) Pulmonary hypertension ([facility]) severe, class 1, class 2, class 3 Bipolar disorder ([facility]) PTSD (post-traumatic stress disorder) Osteoarthritis Obstructive sleep [...] Years of Education: N/A Occupational History Disabled. [employer] Social History Main Topics Smoking status: Former Smoker -- 1.00 packs/day for 20 years Types: Cigarettes Quit date: 12/10/2014 Smokeless tobacco: None Comment: restarted in August 2014, quit again 12/10/14 Alcohol Use: Yes Comment: history of abuse Drug Use: Yes Special: Cocaine Comment: history of cocaine use Sexual Activity: None Other Topics Concern None Social History Narrative Lives at [employer]. Allergies: Allergies Allergen Reactions Erythromycin Metronidazole Penicillins [...] TABS Take 2,000 Units by mouth Daily. [place] Starch POWD by Does not apply route [...] mg onto the skin every 24 hours. [place]-3 Fatty Acids (SEA-OMEGA 30) 1200 MG CAPS [...] kg (205 lb 11.2 oz) | B CO 41.52 kg/m2 | SpO2 90% RA General [...] sounds are diminished bilaterally, no wheezes, aircraft de icer installer ckles or rhonchi Chest Wall: No [...] Range: 0-100 6 eGFR, External Latest Range: [id number] 58 (A) Immunization History Administered Date(s) Administered [...] made to ensure accuracy; however, inadvertent computerized social media specialist errors may be pre sent. documented [...] | | | | | [place] [address] | | | | | | [phone] | | | | | | | | +--------+---------+ + + + | 04/30/ | Office | Sleep Medicine | Jacky Calderon PA | | 2019 | Visit | | [address] | | | | | | [place] | | | | | | [address] | | | | | | | [...] Performed At | + + + | [facility] ECHOCARDIOGRAM REPORT | [place] | | STUDY DATE: 03/26/2015 PATIENT NAME: Margarita Rowley : | [facility] | | 1965 PCP: Physician No CLINICAL [facility] | | HISTORY/DIAGNOSIS: Pulmonary HTN A transthoracic [...] Signed by: Derick Strong, | | | [facility] 03/26/2015 13:52 Surgical Instrument Technician: Maciel Silva, | | | RDCS, RDMS, RVT | | + + + + + + + + | Performing | Address | City/State/Zipcode | Phone Number | | Organization | | | | + + + + + | [facility] | [address] | [place], [place] | [phone] | | [facility] | | [address] | | | - IMAGING | | [...]
--- OUTSIDE RECORDS SUMMARY | ~2020-03-24 | XMS | Encounter Summary ---
Demographics + + + | Address | [address] | | | [place] [address] | + + + | Home Phone [...] Organization | [facility] | | | and [place]am[place] | + + + | Address | Unknown | + + + | Phone | Unavailable | + + + Support + + + + + | Name | Relationship | Address | Phone | + + + + + | [employer] | ECON | [id number] | | | | | Unknown | | + + + + + Care Team Providers + +------+ + | Care Director Index Name | Role | Phone | + [...] | | [facility] | Zari Library Science Professor | use | | | | [address] | | | | | | [place] | | | | | | [address] | | | | | | [phone] | | | +--------+ + + + [...] | | | | | [place] [address] | | | | | | [phone] | | | | | | | | +--------+---------+ + + + | 04/30/ | Office | Sleep Medicine | Jacky Calderon PA | | | 2020 | Visit | | [address] | | | | | | [place] | | | | | | [address] | | | | | | | [...] | mL/min/1.73m2 | [facility]ACELI | | | MALAWIAN | RATE,ESTIMATED | | MEDICAL | | | | mL/min/1.50d0Dpko than | | CENTER - | | [...] | 8.3 - 10.5 | [facility] | | | | | mg/dL | [...] [address] | [place] | [phone] | | [facility] | | [address] | | | - LABORATORY | | [...] [address] | [place] | [phone] | | [facility] | | [address] | | | - LABORATORY | | | | + + + + + documented in this encounter Visit Diagnoses + + | Diagnosis | + + | High risk medication use Encounter for long-term (current) use of other medications | + + documented in this encounter"
--- OUTSIDE RECORDS SUMMARY | ~2020-03-24 | XMS | Encounter Summary ---
Demographics + + + | Address | [address] | | | [place] [address] | + + + | Home Phone [...] + | Organization | [facility] | | | and [place] | + + + | Address | Unknown | + + + | Phone | Unavailable | + + + Support + + + + + | Name | Relationship | Address | Phone | + + + + + | [employer] | ECON | [phone] | | | | | Unknown | | + + + + + Care Team Providers + +------+ + | Care Import/Export Clerk Name | Role | Phone | + +------+ + | Yuni Shrestha | PCP | | + +------+ + Encounter Details +--------+ + + + + | Date | Type | Department | Care Team | Description | +--------+ + + + + | 06/11/ | Abstract | [facility] [place] | [facility], | | | 2016 | | GASTROENTEROLOGY | BRITTANY Maddox [address] | | | | | [address] [place] | [place], [place] [address] | | | | | [address] [place], [place] | [place], [place] | | | | | [address] | [address] | | | | | [phone] | | | +--------+ + + + [...] | | | | | [place] [address] | | | | | | [phone] | | | | | | | | +--------+---------+ + + + | 04/30/ | Office | Sleep Medicine | Jacky Calderon PA | | | 2020 | Visit | | [address] | | | | | | [place] | | | | | | [address] | | | | | | | | +--------+---------+ + + + documented as of this encounter Visit Diagnoses Not on filedocumented in this encounter"
--- OUTSIDE RECORDS SUMMARY | ~2020-03-24 | XMS | Encounter Summary ---
Demographics + + + | Address | [address] | | | [place] [address] | + + + | Home Phone [...] | Organization | [facility] | | | and [place] | + + + | Address | Unknown | + + + | Phone | Unavailable | + + + Support + + + + + | Name | Relationship | Address | Phone | + + + + + | [employer] | ECON | [id number] | | | | | Unknown | | + + + + + Care Team Providers + +------+ + | Care Business Banking Representative Name | Role | Phone | + +------+ + | Yuni Shrestha | PCP | | + +------+ + Encounter Details +--------+ + + + + | Date | Type | Department | Care Team | Description | +--------+ + + + + | 11/07/ | Hospital | [facility] | Saharaenstein, | Primary pulmonary | | 2016 | Encounter | MED CTR PULMONARY | Vera Farrar MD | hypertension; | | | | FUNCTION [address] | | Hypoxemia | | | | [place], | | | | | | [place] [address] | | | | | | [phone] | | | +--------+ + + + [...] + + +---------+ + + | [place] Starch POWD | by Does not apply [...] + + + +---------+ + + | Louisa-3 Fatty | Take by mouth. | | [...] | | | | | [place] [address] | | | | | | [phone] | | | | | | | | +--------+---------+ + + + | 04/30/ | Office | Sleep Medicine | Jacyk Calderon PA | | | 2019 | Visit | | [address] | | | | | | [place] | | | | | | [id number] | | | | | | | [...]
--- OUTSIDE RECORDS SUMMARY | ~2020-03-24 | XMS | Encounter Summary ---
Demographics + + + | Address | [address] | | | [place] [address] | + + + | Home Phone [...] + | Organization | [facility] | | | and [place] | + + + | Address | Unknown | + + + | Phone | Unavailable | + + + Support + + + + + | Name | Relationship | Address | Phone | + + + + + | [employer] | ECON | [id number] | | | | | Unknown | | + + + + + Care Team Providers + +------+ + | Care Physics Faculty Member Name | Role | Phone | [...] | | | | ABDIRASHID BROTHERS | [place], [place] | | | | | [place] | [address] | | | | | [address] | [phone] | | | | | [phone] | | | +--------+ + + + [...] | | | | | [place] [address] | | | | | | [phone] | | | | | | | | +--------+---------+ + + + | 04/30/ | Office | Sleep Medicine | Jacky Calderon PA | | | 2020 | Visit | | [address] | | | | | | [place] | | | | | | [address] | | | | | | | | +--------+---------+ + + + documented as of this encounter Visit Diagnoses Not on filedocumented in this encounter"
--- OUTSIDE RECORDS SUMMARY | ~2020-03-24 | XMS | Encounter Summary ---
Demographics + + + | Address | [address] | | | [place] [address] | + + + | Home Phone [...] | Organization | [facility] | | | and [place] | + + + | Address | Unknown | + + + | Phone | Unavailable | + + + Support + + + + + | Name | Relationship | Address | Phone | + + + + + | [employer] | ECON | [id number] | | | | | Unknown | | + + + + + Care Team Providers + +------+ + | Care Hand Trucker Name | Role | Phone | + [...] Farrar MD | | | | | [place], | | | | | | [place] [address] | | | | | | [phone] | | | +--------+--------+ + + + [...] | | | | | [place] [address] | | | | | | [phone] | | | | | | | | +--------+---------+ + + + | 04/30/ | Office | Sleep Medicine | Jacky Calderon PA | | | 2019 | Visit | | [address] | | | | | | [place] | | | | | | [id number] | | | | | | | [...]
--- OUTSIDE RECORDS SUMMARY | ~2020-03-24 | XMS | Encounter Summary ---
Demographics + + + | Address | [address] | | | [place] [address] | + + + | Home Phone [...] [facility] | | | and [place] | + + + | Address | Unknown | + + + | Phone | Unavailable | + + + Support + + + + + | Name | Relationship | Address | Phone | + + + + + | [employer] | ECON | [id number] | | | | | Unknown | | + + + + + Care Team Providers + +------+ + | Care Art Conservator Name | Role | Phone | + [...] | RN | | | | | [place], | | | | | | [place] [address] | | | | | | [phone] | | | +--------+ + + + [...] | | | | | [place] [address] | | | | | | [phone] | | | | | | | | +--------+---------+ + + + | 04/30/ | Office | Sleep Medicine | Jacky Calderon PA | | | 2019 | Visit | | [address] | | | | | | [place] | | | | | | [address] | | | | | | | | +--------+---------+ + + + documented as of this encounter Visit Diagnoses Not on filedocumented in this encounter"
--- OUTSIDE RECORDS SUMMARY | ~2020-03-24 | XMS | Encounter Summary ---
Demographics + + + | Address | [address] | | | [place] [address] | + + + | Home Phone [...] | Organization | [facility] | | | and [place] | + + + | Address | Unknown | + + + | Phone | Unavailable | + + + Support + + + + + | Name | Relationship | Address | Phone | + + + + + | [employer] | ECON | [id number] | | | | | Unknown | | + + + + + Care Team Providers + +------+ + | Care Warning Coordination Meteorologist Name | Role | Phone | + [...] RN | obstructive | | | | [place], | | pulmonary disease) | | | | [place] [address] | | (HCC) | | | | [phone] | | | +--------+ + + + [...] | | | | | [place] [address] | | | | | | [phone] | | | | | | | | +--------+---------+ + + + | 04/30/ | Office | Sleep Medicine | Jacky Calderon PA | | | 2019 | Visit | | [address] | | | | | | [place] | | | | | | [address] | | | | | | | | +--------+---------+ + + + documented as of this encounter Visit Diagnoses + + | Diagnosis | + + | COPD (chronic obstructive pulmonary disease) (HCC) Chronic airway obstruction, not | | elsewhere classified | + + documented in this encounter"
--- OUTSIDE RECORDS SUMMARY | ~2020-03-24 | XMS | Encounter Summary ---
Demographics + + + | Address | [address] | | | [place] [address] | + + + | Home Phone [...] | Organization | [facility] | | | and [place] | + + + | Address | Unknown | + + + | Phone | Unavailable | + + + Support + + + + + | Name | Relationship | Address | Phone | + + + + + | [employer] | ECON | [id number] | | | | | Unknown | | + + + + + Care Team Providers + +------+ + | Care Curb Supervisor Name | Role | Phone | + +------+ + | Gela Trimble DIPLOMA MEDICAL ASSISTANT | PCP | | + +------+ [...] [address] | | | | | ([facility]) | MD [address] | | | | | | [address] | [address] | | | | | | [place], | [place], [place] | | | | | | [place] [address] | [address] Phone: | | | | | | | [phone] | | | | | | | Fax: | | | | | | | [phone] | +--------+ + + + + + [...] | | MD [address] | | | | | [address] | [place], | | | | | | [place], | [place] [address] | | | | | | [place] [address] | Phone: | | | | | | | [phone] | | | | | | | Fax: | | | | | | | [phone] | +--------+ + + + + + [...] [address] | | | | | ([facility]) | [address] | | | | | [address] | [address] | | | | | | [place], | [place], [place] | | | | | | [place] [address] | [address] Phone: | | | | | | | [phone] | | | | | | | Fax: | | | | | | | [phone] | +--------+ + + + + + Encounter Details +--------+---------+ + + + | Date | Type | Department | Care Team | Description | +--------+---------+ + + + | 07/04/ | Office | [facility] | Offenstein, | Pulmonary | | 2012 | Visit | PULMONARY [address] | Vera Farrar MD | hypertension ([facility]) | | | | [address], | | (Primary Dx); [place] | | | | [place] [address] | | (obstructive sleep | | | | [phone] | | apnea); Hypoxemia; | | | | | | COPD (chronic | | | | | | obstructive | | | | | | pulmonary disease) | | | | | | ([facility]); Congestive | | | | | | heart failure with | | | | | | LV diastolic | | | | | | dysfunction, NYHA | | | | | | class 3 ([facility]); | | | | [...] [place] [place] [facility] [address] [place], [address] Referring Provider: Nai Otoole, Gela FELICIANO Margarita [...] and chest pain. She was taken to [facility] and underwent evaluation there. She does [...] pre hospitalization work up either. While at [facility], she had a right heart cath [...] factors for HIV. She was tested at [facility] as well. Past Medical History Past [...] Years of Education: N/A Occupational History Disabled. 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 Allergies: Allergies Allergen Reactions Erythromycin Metronidazole Penicillins [...] Place 1 applicator vaginally 2 times daily. Snyder-3 Fatty Acids (SEA-OMEGA 30) 1200 MG CAPS [...] pressure of 18/14cm H2O. Echocardiogram done at [facility] on May 02, 2013 was reviewed [...] were performed on May 07, 2013 at [facility] in the pulmonary function l ab [...] were reviewed in clinic today. Records from [facility] are reviewed in clinic today. Assessment [...] to them, but she was at a halfway in the interim. I am going to [...] iPAP. She had an overnight oximetry at [facility] (I think on 2L?) which showed [...] ordered today. 7.See pulmonary hypertension specialist in [place], Dr. Rivera to address question of medi [...] made to ensure accuracy; however, inadvertent computerized permit specialist errors may be pre sent. documented [...] | | | | | [place] [address] | | | | | | [phone] | | | | | | | [...] | + + +--------+ + + | JUNIOR TECHNICAL WRITER Ab, IgG | Lab | Routin | Pulmonary | Expected: | | | | e | hypertension (HCC) | 07/04/2013, Expires: | | | | | | 07/04/2014 | + + +--------+ + + | Rowley Ab, IgG | Lab | Routin | Pulmonary | Expected: | | | | e | hypertension ([facility]) | 07/04/2013, Expires: | | | | | | 07/04/2014 | + + +--------+ + + | Pulse oximetry | Respiratory | Routin | Pulmonary | Expected: | | titation | Care | e | hypertension ([facility]) | 07/04/2013, Expires: | | | | | | 07/04/2014 | + + +--------+ + + | Oxygen Therapy | Respiratory | Routin | Pulmonary | Expected: | | | Care | e | hypertension ([facility]) | 07/04/2013, Expires: | | | | [...] [facility] | | | [facility] | Performed: [facility], [address] [facility] | | | | [address], [place] | | MEDICAL | | | | [id number]: [id number] | | CENTER - | | | [...] + | [facility] | [address] | [place] | [phone] | | [facility] | | [address] | | | - LABORATORY | | | | + + + + + | [facility] | [address] | [place] | | | [facility] | | [address], [facility] | | [...] [facility] | | | | | | [facility] | | | | | | MEDICAL | | | | | | CENTER - | | | | | | LABORATORY | | + +-------+ + + + + + | Specimen | + + | Blood specimen | | (specimen) | + + + + + + + | Performing | Address | City/State/[facility] | Phone Number | | Organization | | | | + + + + + | [facility] | [address] | [place] | [phone] | | [facility] | | [address] | | | - LABORATORY | | | | + + + + + | [facility] | [address] | [place] | | | [facility] | | [address], [facility] | | [...]
--- OUTSIDE RECORDS SUMMARY | ~2020-03-24 | XMS | Encounter Summary ---
Demographics + + + | Address | [address] | | | [place] [address] | + + + | Home Phone [...] Organization | [facility] | | | and [place] | + + + | Address | Unknown | + + + | Phone | Unavailable | + + + Support + + + + + | Name | Relationship | Address | Phone | + + + + + | [employer] | ECON | [id number] | | | | | Unknown | | + + + + + Care Team Providers + +------+ + | Care Spinner Iron Name | Role | Phone | + [...] + + | 07/23/ | Office | [facility] | Jacky Calderon PA | Primary central | | 2016 | Visit | SLEEP DISORDER [address] | [address] | sleep apnea (Primary | | | | [address] [place] | [place] | Dx) | | | | [place] [address] | [address] | | | | | [phone] | | | +--------+---------+ + + + [...] 07/23/2016 11:11 AM PDT Subjective: Patient ID: Margairta Rowley is a 50 y.o. female. HPI last office visit was: 05/22/2015 date of polysomnography: 03/13/2013 at [facility] AHI: 64.2 O2%: n/a Machine type: Respironics BiPAP Auto with ResMed Quattro FX full face mask obtained from: [facility] in [place] pressure: 16/5 cm with backup rate of [...] Assessment: Problem #1: PRIMARY CENTRAL SLEEP APNEA ([id number]-R07.31) This is controlled with BiPAP and oxygen at 5 L/min. Her compliance is going very well. Plan: 1. She is to continue with BiPAP indefinitely. 2. She is to touch base with her medical supplier twice per year to ensure that her equipm ent is satisfactory. I will follow up with her in 1 year, sooner prn. Fifteen minutes were spent [id number], with the majority of time spent in [...] | | | | | [place] [address] | | | | | | [phone] | | | | | | | | +--------+---------+ + + + | 04/30/ | Office | Sleep Medicine | Jacky Calderon PA | | | 2020 | Visit | | [address] | | | | | | [place] | | | | | | [address] | | | | | | | | +--------+---------+ + + + documented as of this encounter Visit Diagnoses + + | Diagnosis | + + | Primary central sleep apnea - Primary | + + documented in this encounter"
--- OUTSIDE RECORDS SUMMARY | ~2020-03-24 | XMS | Encounter Summary ---
Demographics + + + | Address | [address] | | | [place] [address] | + + + | Home Phone [...] Organization | [facility] | | | and [place] | + + + | Address | Unknown | + + + | Phone | Unavailable | + + + Support + + + + + | Name | Relationship | Address | Phone | + + + + + | [employer] | ECON | [id number] | | | | | Unknown | | + + + + + Care Team Providers + +------+ + | Care Cylinder Inspector Name | Role | Phone | [...] | | | | ABDIRASHID BROTHERS | [place], [place] | | | | | [place] | [address] | | | | | [address] | [phone] | | | | | [phone] | | | +--------+ + + + [...] | | | | | [place] [address] | | | | | | [phone] | | | | | | | | +--------+---------+ + + + | 04/30/ | Office | Sleep Medicine | Jacky Calderon PA | | | 2020 | Visit | | [address] | | | | | | [place] | | | | | | [address] | | | | | | | | +--------+---------+ + + + documented as of this encounter Visit Diagnoses Not on filedocumented in this encounter"
--- OUTSIDE RECORDS SUMMARY | ~2020-03-24 | XMS | Encounter Summary ---
Demographics + + + | Address | [address] | | | [place] [address] | + + + | Home Phone [...] + | Organization | [facility] | | | and [place] | + + + | Address | Unknown | + + + | Phone | Unavailable | + + + Support + + + + + | Name | Relationship | Address | Phone | + + + + + | [employer] | ECON | [phone] | | | | | Unknown | | + + + + + Care Team Providers + +------+ + | Care Tilting Saw Operator Name | Role | Phone | [...] MD | increase) | | | | [place], | | | | | | [place] [address] | | | | | | [phone] | | | +--------+ + + + [...] | | | | | [place] [address] | | | | | | [phone] | | | | | | | | +--------+---------+ + + + | 04/30/ | Office | Sleep Medicine | Jacky Calderon PA | | | 2019 | Visit | | [address] | | | | | | [place] | | | | | | [address] | | | | | | | | +--------+---------+ + + + documented as of this encounter Visit Diagnoses Not on filedocumented in this encounter"
--- OUTSIDE RECORDS SUMMARY | ~2020-03-24 | XMS | Encounter Summary ---
Demographics + + + | Address | [address] | | | [place] [address] | + + + | Home Phone [...] Organization | [facility] | | | and [place] | + + + | Address | Unknown | + + + | Phone | Unavailable | + + + Support + + + + + | Name | Relationship | Address | Phone | + + + + + | [employer] | ECON | [id number] | | | | | Unknown | | + + + + + Care Team Providers + +------+ + | Care Knife Glazer Name | Role | Phone | + [...] + + | 01/23/ | Office | [facility] | Jacky Calderon PA | Primary central | | 2013 | Visit | SLEEP DISORDER [address] | [address] | sleep apnea (Primary | | | | [address] | [place], [place] | Dx) | | | | [place] [address] | [address] | | | | | [phone] | | | +--------+---------+ + + + [...] was: 12/26/2013 date of polysomnography: 03/13/2013 at [facility] AHI: 64.2 O2%: n/a Machine type: Respironics BiPAP Auto with [employer] Quattro FX full face mask obtained from: [facility] pressure: 16/5 cm with backup [...] months, sooner prn. Fifteen minutes were spent [id number] , with the majority of time spent [...] | | | | | [place] [address] | | | | | | [phone] | | | | | | | | +--------+---------+ + + + | 04/30/ | Office | Sleep Medicine | Jacky Calderon PA | | | 2019 | Visit | | [address] | | | | | | [place] | | | | | | [address] | | | | | | | | +--------+---------+ + + + documented as of this encounter Visit Diagnoses + + | Diagnosis | + + | Primary central sleep apnea - Primary | + + documented in this encounter"
--- OUTSIDE RECORDS SUMMARY | ~2020-03-24 | XMS | Encounter Summary ---
Demographics + + + | Address | [address] | | | [place] [address] | + + + | Home Phone [...] + + + | Author | [facility] | | | and [place] | + + + | Organization | [facility] | | | and [place] | + + + | Address | Unknown | + + + | Phone | Unavailable | + + + Support + + + + + | Name | Relationship | Address | Phone | + + + + + | [employer] | ECON | [id number] | | | | | Unknown | | + + + + + Care Team Providers + +------+ + | Care Satellite Dish Technician Name | Role | Phone | [...] | | | | | | [place] [address] | | | | | | [phone] | | | +--------+ + + + [...] | | | | | [place] [address] | | | | | | [phone] | | | | | | | | +--------+---------+ + + + | 04/30/ | Office | Sleep Medicine | Jacky Calderon PA | | | 2020 | Visit | | [address] | | | | | | [place] | | | | | | [address] | | | | | | | [...] [address] | [place] | [phone] | | [facility] | | [id number] | | | - LABORATORY | | | | + + + + + documented in this encounter Visit Diagnoses Not on filedocumented in this encounter"
--- OUTSIDE RECORDS SUMMARY | ~2020-03-24 | XMS | Encounter Summary ---
Demographics + + + | Address | [address] | | | [place] [address] | + + + | Home Phone [...] [facility] | | | and [place] | + + + | Address | Unknown | + + + | Phone | Unavailable | + + + Support + + + + + | Name | Relationship | Address | Phone | + + + + + | [employer] [facility] | ECON | [id number] | | | | | Unknown | | + + + + + Care Team Providers + +------+ + | Care Commuter Pilot Name | Role | Phone | + +------+ + | Gela Trimble FIXTURE MAKER | PCP | | + +------+ [...] | Primary | [place], | [address] | | | | | pulmonary | Vera B, | [place], | | | | | hypertension | MD [address] | [place] | | | | | (HCC) | [address] | [address] | | | | | Procedures | [place], | Phone: | | | | | ECHO | [place] [address] | [phone] | | | | | Complete | | Fax: | | | | | | | [phone] | +--------+--------+ + + + + Reason [...] | | | Pulmonology | airway | FIXTURE MAKER [address] | MD [address] | | | | | obstruction, | [address] | [address] | | | | | not | [address] | [place], | | | | | elsewhere | [place], | [place] [address] | | | | | classified | [place] [address] | | | | | | COPD | Phone: | | | | | | Procedures | [phone] | | | | | | 3 MO FOLLOW | Fax: | | | | | | UP | [phone] | | +--------+--------+ + + + + Encounter Details +--------+---------+ + + + | Date | Type | Department | Care Team | Description | +--------+---------+ + + + | 06/11/ | Office | [facility] | Offenstein, | Primary pulmonary | | 2013 | Visit | PULMONARY [address] | Vera Farrar MD | hypertension | | | | [address] [place], | | (Primary Dx); [place] | | | | [place] [address] | | (obstructive sleep | | | | [phone] | | apnea); COPD | | | [...] CENTER) moderate, FEV1 1.40 (59%) Pulmonary hypertension ([facility]) severe, class 1, class 2, class 3 Bipolar disorder (HCC) PTSD (post-traumatic stress disorder) Osteoarthritis Obstructive sleep apnea AHI 64.2 Vitamin D deficiency GERD (gastroesophageal reflux disease) Hypothyroidism Seizure disorder (HCC) Developmental delay Hypoxemia ([facility]) on 2L at rest, 4L with exertion Female stress incontinence Pyelonephritis Hypertension Impulse control disorder Hyperlipidemia Obesity Alcohol abuse Cocaine abuse Past Surgical History Past Surgical History Procedure Date Mouth surgery 2 teeth removed Cardiac catherization Social History: History Social History Marital Status: Single Spouse Name: N/A Number of Children: N/A Years of Education: N/A Occupational History Disabled. [employer] Social History Main Topics Smoking status: Former Smoker -- 1.0 packs/day for 20 years Types: Cigarettes Quit date: 05/14/2013 Smokeless tobacco: None Alcohol Use: Yes Comment: history of abuse Drug Use: Yes Special: Cocaine Comment: history of cocaine use Sexually Active: None Other Topics Concern None Social History Narrative Lives at [place]. Allergies: Allergies Allergen Reactions Erythromycin Metronidazole Penicillins [...] TABS Take 2,000 Units by mouth Daily. [place] Starch POWD by Does not apply route [...] tablet Take 15 mg by mouth Daily. [place]-3 Fatty Acids (SEA-OMEGA 30) 1200 MG CAPS [...] 2 times daily. [DISCONTINUED] [facility] rate 8 cm H2O. IPAP 19/EPAP 5 . O2 bleed in at 2 l/m. Lifetime. Dx: 327.23 1 each 0 Respiratory Therapy Supplies [facility] Please contact Dr. [...] doing well. We will check echocardiogram at [facility] up appointment in 6 months. [...] made to ensure accuracy; however, inadvertent computerized kinesiology internship errors may be pre sent. Electronically signed [...] | | | | | [place] [address] | | | | | | [phone] | | | | | | | | +--------+---------+ + + + | 04/30/ | Office | Sleep Medicine | Jacky Calderon PA | | | 2020 | Visit | | [address] | | | | | | [place] | | | | | | [address] | | | | | | | | +--------+---------+ + + + documented as of this encounter Results ECHO Complete (09/11/2014 10:36 AM PST) + + | Specimen | + + | | + + + + + | Narrative | Performed At | + + + | [facility] ECHOCARDIOGRAM REPORT | [facility] | | STUDY DATE: 09/11/2014 PATIENT NAME: Margarita Rowley : | [facility] | | 1965 PCP: Gela Trimble FIXTURE MAKER | MEDICAL CENTER | | CLINICAL HISTORY/DIAGNOSIS: [...] | | | Ananth Salguero MD PhD [facility] 09/11/2014 10:45 | | | Piercer Operator: Hung Caro, RDCS, RVT, RDMS | | + + + + + | Procedure Note | + + | Roberto Salguero MD - 09/12/2014 9:12 AM [facility] | | CENTERECHOCARDIOGRAM REPORTSTUDY DATE: 09/11/2014PATIENT NAME: Margarita MooreB: | | 1965MRN: [id number]: Gela Trimble, [facility] H[facility]/DIAGNOSIS: | | Pulmonary hypertensionA transthoracic echocardiogram [...] PP mmHgLA volume: 30 mLLA index: 16 mL/o4Nkkfyo Inflow DT: 272 | | msIVRT: 110 msValsalva: Not neededPWDTI S wave: 7.2 cm/sPWDTI E wave: 8.0 cm/sPWDTI | | A wave: 10.4 cm/sE/A Ratio: 0.769E/E Ratio: 10.63Signed by: Artie Salguero MD | | PhD [facility] 09/11/2014 10:45 Piercer Operator: Hung Caro, RDCS, RVT, RDMS | |Tricuspid [...] | |Signed by: Artie Salguero MD PhD [facility] | | 09/11/2014 10:45 | | | | | |Piercer Operator: Hung Caro, RDCS, RVT, RDMS | + + + + + + + | Performing | Address | City/State/Zipcode | Phone Number | | Organization | | | | + + + + + | [facility] | [address] | [place], [place] | [phone] | | [facility] | | [address] | | | - IMAGING | | [...]
--- OUTSIDE RECORDS SUMMARY | ~2020-03-24 | XMS | Encounter Summary ---
Demographics + + + | Address | [address] | | | [place] [address] | + + + | Home Phone [...] | Organization | [facility] | | | and [place] | + + + | Address | Unknown | + + + | Phone | Unavailable | + + + Support + + + + + | Name | Relationship | Address | Phone | + + + + + | [employer] | ECON | [phone] | | | | | Unknown | | + + + + + Care Team Providers + +------+ + | Care Processing Technologist Name | Role | Phone | + +------+ + | Gela Trimble NP | PCP | | + +------+ + Encounter Details +--------+ + + + + | Date | Type | Department | Care Team | Description | +--------+ + + + + | 07/04/ | Hospital | [facility] | Offenstein, | Pulmonary | | 2012 | Encounter | MED CTR GENERIC OP | Vera Farrar MD | hypertension (HCC) | | | | CONV DEPT [address] | | | | | | [place], | | | | | | [place] [address] | | | | | | [phone] | | | +--------+ + + + [...] | + + + +---------+--------+ + | [place]-3 Fatty | Take by mouth. | | [...] | | | | | [place] [address] | | | | | | [phone] | | | | | | | | +--------+---------+ + + + | 04/30/ | Office | Sleep Medicine | Jacky Calderon PA | | | 2020 | Visit | | [address] | | | | | | [place] | | | | | | [address] | | | | | | | [...] 07/04/2013 | + +------+--------+ + + | MARINE FIREMAN Ab, IgG | Lab | Routin | [...] | | | | [place] [address] [place] | | | | | | [address] RUFUSIA: | | | | | | [id number] | | | | + + + + + + + + | Specimen | + + | | + + + + + + + | Performing | Address | City/[facility] | Phone Number | | Organization | | | | + + + + + | [facility] | [address] | [place] | [phone] | | [facility] | | [address] | | | - LABORATORY | | | | + + + + + | [facility] | [address] | [place] | | | [facility] | | [address], [facility] | | | - LABORATORY | | [...] | autoantibod | Testing Performed: | | [facility] | | | y IgG | [facility], [address], | | MEDICAL | | | | [place] [address] | | CENTER - | | | | CLIA: [id number] | | LABORATORY | | + + + + + + + + | Specimen | + + | | + + + + + + + | Performing | Address | City/State/Zipcode | Phone Number | | Organization | | | | + + + + + | [facility] | [address] | [place] | [phone] | | [facility] | | [address] | | | - LABORATORY | | | | + + + + + | [facility] | [address] | [place] | | | [facility] | | [address] [place] [address] | | | - LABORATORY | | [...] | | MEDICAL | | | | [place] [address] | | CENTER - | | | | CLIA: [id number] | | LABORATORY | | + + + + + + + + | Specimen | + + | | + + + + + + + | Performing | Address | City/State/Zipcode | Phone Number | | Organization | | | | + + + + + | [facility] | [address] | [place] | [phone] | | [facility] | | [address] | | | - LABORATORY | | | | + + + + + | [facility] | [address] | [place], [place] | | | [facility] | | [address] | | | - [...] | | MEDICAL | | | | [place] [address] | | CENTER - | | | | RUUFSIA: [id number] | | LABORATORY | | + + + + + + + + | Specimen | + + | | + + + + + + + | Performing | Address | City/State/Zipcode | Phone Number | | Organization | | | | + + + + + | [facility] | [address] | [place], [place] | [phone] | | [facility] | | [address] | | | - LABORATORY | | | | + + + + + | [facility] | [address] | [place] | | | [facility] | | [address] | | | - [...] - | | | | [place] [address] | | LABORATORY | | | | CLIA: [id number] | | | | + + + + + + + + | Specimen | + + | | + + + + + + + | Performing | Address | City/State/Zipcode | Phone Number | | Organization | | | | + + + + + | [facility] | [address] | [place], [place] | [phone] | | [facility] | | [address] | | | - LABORATORY | | | | + + + + + | [facility] | [address] | [place] | | | [facility] | | [address] [place] [address] | | | - LABORATORY | | [...] | MEDICAL | | | | [place] [address] | | CENTER - | | | | CLIA: [id number] | | LABORATORY | | + + + + + + | MARINE FIREMAN | 0.4Comment: Negative | <1.0 AI | [facility] | | | Autoantibod | Testing Performed: | | [facility] | | | y | [facility], [address], | | MEDICAL | | | | [place] [address] | | CENTER - | | | | CLIA: [id number] | | LABORATORY | | + + + + + + | SMRNP | <0.2Comment: Negative | <1.0 AI | [facility] | | | Autoantibod | Testing Performed: | | [facility] | | | y | [place], [address], | | MEDICAL | | | | [place] [address] | | CENTER - | | | | CLIA: [id number] | | LABORATORY | | + + + + + + + + | Specimen | + + | | + + + + + + + | Performing | Address | City/State/Zipcode | Phone Number | | Organization | | | | + + + + + | [facility] | [address] | [place] | [phone] | | [facility] | | [address] | | | - LABORATORY | | | | + + + + + | [facility] | [address] | [place] | | | [facility] | | [address], [facility] | | | - LABORATORY | | [...] | | | INTERVAL: Aldolase | | [facility] | | | | Access complete set of | | MEDICAL | | | | age- and/or | | CENTER - | | | | gender-specific | | LABORATORY | | | | reference intervals | | | | | | for this test in the | | | | | | [facility] Test | | | | | | Directory (Flinja). | | | | | | Testing Performed: | | | | | | [facility], [address], | | | | | | [place], [place] | | | | | | [address] CLIA: | | | | | | [id number] | | | | + + + + + + + + | Specimen | + + | | + + + + + + + | Performing | Address | City/State/[facility] | Phone Number | | Organization | | | | + + + + + | [facility] | [address] | [place] | [phone] | | [facility] | | [address] | | | - LABORATORY | | | | + + + + + | [facility] | [address] | [place] | | | [facility] | | [address], [facility] | | | - LABORATORY | | [...] | | MEDICAL | | | | [address] CLIA: [id number] | | CENTER - | | | | | | LABORATORY | | + + + + + + + + | Specimen | + + | | + + + + + + + | Performing | Address | City/State/Zipcode | Phone Number | | Organization | | | | + + + + + | [facility] | [address] | [place], [place] | [phone] | | [facility] | | [address] | | | - LABORATORY | | | | + + + + + | [facility] | [address] | [place], [place] | | | [facility] | | [address], [facility] | | | - LABORATORY | | [...] + | [facility] | [address] | [place] | [phone] | | [facility] | | [address] | | | - LABORATORY | | | | + + + + + | [facility] | [address] | [place], [place] | | | [facility] | | [address], [facility] | | | - LABORATORY | | [...] | | MEDICAL | | | | [id number]: [id number] | | CENTER - | | | [...] [address] | [place] | [phone] | | [facility] | | [address] | | | - LABORATORY | | | | + + + + + | [facility] | [address] | [place], [place] | | | [facility] | | [address] | | | - [...] + | [facility] | [address] | [place], [place] | [phone] | | [facility] | | [address] | | | - LABORATORY | | | | + + + + + | [facility] | [address] | [place], [place] | | | [facility] | | [address] [place] [address] | | | - LABORATORY | | | | + + + + + documented in this encounter Visit Diagnoses + + | Diagnosis | + + | Pulmonary hypertension (HCC) Other chronic pulmonary heart diseases | + + documented in this encounter"
--- OUTSIDE RECORDS SUMMARY | ~2020-03-24 | XMS | Encounter Summary ---
Demographics + + + | Address | [address] | | | [place] [address] | + + + | Home Phone [...] Organization | [facility] | | | and [place] | + + + | Address | Unknown | + + + | Phone | Unavailable | + + + Support + + + + + | Name | Relationship | Address | Phone | + + + + + | [employer] | ECON | [id number] | | | | | Unknown | | + + + + + Care Team Providers + +------+ + | Care Liquid Flavor Compounder Name | Role | Phone | + +------+ + | Gela Trimble NP | PCP | | + +------+ + Encounter Details +--------+ + + + + | Date | Type | Department | Care Team | Description | +--------+ + + + + | 12/12/ | [facility] | [facility] | Jacky Calderon PA | | | 2013 | Encounter | MED CTR SLEEP | [address] | | | | | CENTER [address] | [place] | | | | | [place] | [address] | | | | | [address] | | | | | | [phone] | | | +--------+ + + + [...] + + + +---------+ + + | Eunice Starch POWD | by Does not apply [...] + + + +---------+ + + | [place]-3 Fatty | Take by mouth. | | [...] [address] | | | | | | [address] | | | | | | [place] [address] | | | | | | [phone] | | | | | | | | +--------+---------+ + + + | 04/30/ | Office | Sleep Medicine | Jacky Calderon PA | | | 2019 | Visit | | [address] | | | | | | [place] | | | | | | [address] | | | | | | | | +--------+---------+ + + + documented as of this encounter Visit Diagnoses Not on filedocumented in this encounter"
--- OUTSIDE RECORDS SUMMARY | ~2020-03-24 | XMS | Encounter Summary ---
Demographics + + + | Address | [address] | | | [place] [address] | + + + | Home Phone [...] Team Providers + +------+ + | Care Indirect Sales Representative Name | Role | Phone [...] [address] | | | | | | [place], [place] | | | | | | [address] | | | +--------+ + + + [...]
--- OUTSIDE RECORDS SUMMARY | ~2020-03-24 | XMS | Encounter Summary ---
Demographics + + + | Address | [address] | | | [place] [address] | + + + | Home Phone [...] [facility] | | | and [place] | + + + | Address | Unknown | + + + | Phone | Unavailable | + + + Support + + + + + | Name | Relationship | Address | Phone | + + + + + | [employer] | ECON | [phone] | | | | | Unknown | | + + + + + Care Team Providers + +------+ + | Care Teleprinter Installer Name | Role | Phone | + +------+ + PCP | Unavailable | + +------+ + Encounter Details +--------+ + + + + | Date | Type | Department | Care Team | Description | +--------+ + + + + | 12/09/ | Hospital | [facility] | Shady Mcdonald | | | 2008 | Encounter | HOSPITAL XRAY [address] | MD uRdi [address] | | | | | [address] | [place], [place] | | | | | [place] | [address] | | | | | [address] | [phone] | | | | | [phone] | | | +--------+ + + + [...] | | | | | [place] [address] | | | | | | [phone] | | | | | | | | +--------+---------+ + + + | 04/30/ | Office | Sleep Medicine | aJcky Calderon PA | | | 2020 | Visit | | [address] | | | | | | [place] | | | | | | [address] | | | | | | | | +--------+---------+ + + + documented as of this encounter Visit Diagnoses Not on filedocumented in this encounter"
--- OUTSIDE RECORDS SUMMARY | ~2020-03-24 | XMS | Encounter Summary ---
Demographics + + + | Address | [address] | | | [place] [address] | + + + | Home Phone [...] | Organization | [facility] | | | and [place] | + + + | Address | Unknown | + + + | Phone | Unavailable | + + + Support + + + + + | Name | Relationship | Address | Phone | + + + + + | [employer] | ECON | [id number] | | | | | Unknown | | + + + + + Care Team Providers + +------+ + | Care Field Technician Name | Role | Phone | [...] | 2017 | | GASTROENTEROLOGY | Varsha UNHAIRING INSPECTOR [address] | | | | | [address] [place] | [place], [place] [address] | | | | | [address] [place], [place] | [place], [place] | | | | | [address] | [address] | | | | | [phone] | | | +--------+--------+ + + + [...] | | | | | [place] [address] | | | | | | [phone] | | | | | | | [...]
--- OUTSIDE RECORDS SUMMARY | ~2020-03-24 | XMS | Encounter Summary ---
Demographics + + + | Address | [address] | | | [place] [address] | + + + | Home Phone [...] | Organization | [facility] | | | and [place] | + + + | Address | Unknown | + + + | Phone | Unavailable | + + + Support + + + + + | Name | Relationship | Address | Phone | + + + + + | [employer] | ECON | [phone] | | | | | Unknown | | + + + + + Care Team Providers + +------+ + | Care Cane Stripper Name | Role | Phone | + [...] RN | apnea | | | | [place], | | | | | | [place] [address] | | | | | | [phone] | | | +--------+ + + + [...] | | | | | [place] [address] | | | | | | [phone] | | | | | | | | +--------+---------+ + + + | 04/30/ | Office | Sleep Medicine | Jacky Calderon PA | | | 2020 | Visit | | [address] | | | | | | [place] | | | | | | [address] | | | | | | | | +--------+---------+ + + + documented as of this encounter Visit Diagnoses + + | Diagnosis | + + | Obstructive sleep apnea Obstructive sleep apnea (adult) (pediatric) | + + documented in this encounter"
--- OUTSIDE RECORDS SUMMARY | ~2020-03-24 | XMS | Encounter Summary ---
Demographics + + + | Address | [address] | | | [place] [address] | + + + | Home Phone [...] | Organization | [facility] | | | and [place] | + + + | Address | Unknown | + + + | Phone | Unavailable | + + + Support + + + + + | Name | Relationship | Address | Phone | + + + + + | [employer] | ECON | [phone] | | | | | Unknown | | + + + + + Care Team Providers + +------+ + | Care Environmental Health Nurse Name | Role | Phone | [...] Farrar MD | | | | | [place], | | | | | | [place] [address] | | | | | | [phone] | | | +--------+ + + + [...] | | | | | [place] [address] | | | | | | [phone] | | | | | | | [...]
--- OUTSIDE RECORDS SUMMARY | ~2020-03-24 | XMS | Encounter Summary ---
Demographics + + + | Address | [address] | | | [place] [address] | + + + | Home Phone [...] | Organization | [facility] | | | and [place] | + + + | Address | Unknown | + + + | Phone | Unavailable | + + + Support + + + + + | Name | Relationship | Address | Phone | + + + + + | [employer] | ECON | [id number] | | | | | Unknown | | + + + + + Care Team Providers + +------+ + | Care Chief Librarian Branch Name | Role | Phone | + [...] + + | 12/26/ | [facility] | Jacky Calderon PA | Primary central | | 2013 | Visit | SLEEP DISORDER [address] | [address] | sleep apnea (Primary | | | | [address] [place] | [place], [place] | Dx) | | | | [place] [address] | [address] | | | | | [phone] | | | +--------+---------+ + + + [...] was: 11/20/2013 date of polysomnography: 03/13/2013 at [facility] AHI: 64.2 O2%: n/a Machine type: Respironics BiPAP Auto with ResMed Quattro FX full face mask obtained from: [facility] pressure: 19/5 cm Nights using BiPAP: [...] a prescription to [facility] in [place] for a change in her pressure s etting to 16/5 cm with backup rate of 8 and 5 L/min oxygen bled into the circuitry. She is to continue with BiPAP at these settings. I will follow up with her in 1 month, sooner prn. Thirty minutes were spent [id number], with the majority of time spent in [...] | | | | | [place] [address] | | | | | | [phone] | | | | | | | | +--------+---------+ + + + | 04/30/ | Office | Sleep Medicine | Jacky Calderon PA | | | 2019 | Visit | | [address] | | | | | | [place] | | | | | | [address] | | | | | | | | +--------+---------+ + + + documented as of this encounter Visit Diagnoses + + | Diagnosis | + + | Primary central sleep apnea - Primary | + + documented in this encounter"
--- OUTSIDE RECORDS SUMMARY | ~2020-03-24 | XMS | Encounter Summary ---
Demographics + + + | Address | [address] | | | [place] [address] | + + + | Home Phone [...] Organization | [facility] | | | and [place] | + + + | Address | Unknown | + + + | Phone | Unavailable | + + + Support + + + + + | Name | Relationship | Address | Phone | + + + + + | [employer] | ECON | [id number] | | | | | Unknown | | + + + + + Care Team Providers + +------+ + | Care Iron Miner Blasting Name | Role | Phone | + [...] | | | | | pharyngeal | [address] | [address] | | | | | phase | [address] | [place], [place] | | | | | Procedures | [place], | [address] [place] | | | | | Office Visit | [place] [address] | [place], [place] | | | | | | Phone: | [address] Phone: | | | | | | [phone] | [phone] | | | | | | Fax: | Fax: | | | | | | [phone] | [phone] | +--------+--------+ + + + + Encounter [...] | [address] [place] | [place], [place] [address] | dysphagia (Primary | | | | [address] [place], [place] | [place], [place] | Dx); Chronic | | | | [address] | [address] | obstructive | | | | [phone] | | pulmonary disease, | | | [...] Years of Education: N/A Occupational History Disabled. [employer] Social History Main Topics Smoking status: Former Smoker -- 1.00 packs/day for 20 years Types: Cigarettes Quit date: 12/15/2015 Smokeless tobacco: Never Used Comment: Smoking a cigarette every 2 hours Alcohol Use: No Drug Use: No Sexual Activity: Not on file Other Topics Concern Not on file Social History Narrative Lives at [employer]. Review of systems: Constitutional:Denies any fevers, chills, [...] prescribed. Discussed that if PPI is used ad terminal makeup operator, Calcium an d Vitamin D should be [...] | | | | | [place] [address] | | | | | | [phone] | | | | | | | | +--------+---------+ + + + | 04/30/ | Office | Sleep Medicine | Jacky Calderon PA | | | 2019 | Visit | | [address] [place] [address] | | | | | | [...]
--- OUTSIDE RECORDS SUMMARY | ~2020-03-24 | XMS | Encounter Summary ---
Demographics + + + | Address | [address] | | | [place] [address] | + + + | Home Phone [...] Organization | [facility] | | | and [place] | + + + | Address | Unknown | + + + | Phone | Unavailable | + + + Support + + + + + | Name | Relationship | Address | Phone | + + + + + | [employer] | ECON | [phone] | | | | | Unknown | | + + + + + Care Team Providers + +------+ + | Care Visual Merchandising Director Name | Role | Phone | [...] Farrar MD | | | | | [place], | | | | | | [place] [address] | | | | | | [phone] | | | +--------+--------+ + + + [...] | | | | | [place] [address] | | | | | | [phone] | | | | | | | | +--------+---------+ + + + | 04/30/ | Office | Sleep Medicine | Jacky Calderon PA | | | 2020 | Visit | | [address] | | | | | | [place] | | | | | | [address] | | | | | | | | +--------+---------+ + + + documented as of this encounter Visit Diagnoses Not on filedocumented in this encounter"
--- OUTSIDE RECORDS SUMMARY | ~2020-03-24 | XMS | Encounter Summary ---
Demographics + + + | Address | [address] | | | [place] [address] | + + + | Home Phone [...] Organization | [facility] | | | and [place] | + + + | Address | Unknown | + + + | Phone | Unavailable | + + + Support + + + + + | Name | Relationship | Address | Phone | + + + + + | [employer] | ECON | [phone] | | | | | Unknown | | + + + + + Care Team Providers + +------+ + | Care Agricultural Service Worker Name | Role | Phone | + +------+ + PCP | Unavailable | + +------+ + Encounter Details +--------+ + + + + | Date | Type | Department | Care Team | Description | +--------+ + + + + | 04/11/ | [facility] | [place] | Edwar Taveras | | | 2011 | Encounter | HOSPITAL EMERGENCY | MD [address] | | | | | CENTER [address] | [facility] | | | | | [address] [place] | [place] [address] | | | | | [address] | [phone] | | | | | [phone] | | | +--------+ + + + [...] | | | | | [place] [address] | | | | | | [phone] | | | | | | | | +--------+---------+ + + + | 04/30/ | Office | Sleep Medicine | Jacky Calderon PA | | | 2020 | Visit | | [address] | | | | | | [place] | | | | | | [address] | | | | | | | | +--------+---------+ + + + documented as of this encounter Visit Diagnoses Not on filedocumented in this encounter"
--- OUTSIDE RECORDS SUMMARY | ~2020-03-24 | XMS | Encounter Summary ---
Demographics + + + | Address | [address] | | | [place] [address] | + + + | Home Phone [...] + | Organization | [facility] | | | and [place] | + + + | Address | Unknown | + + + | Phone | Unavailable | + + + Support + + + + + | Name | Relationship | Address | Phone | + + + + + | [employer] | ECON | [id number] | | | | | Unknown | | + + + + + Care Team Providers + +------+ + | Care Clinical Practitioner Name | Role | Phone | [...] | | | | | | [place] [address] | | | | | | [phone] | | | +--------+ + + + [...] | | | | | [place] [address] | | | | | | [phone] | | | | | | | | +--------+---------+ + + + | 04/30/ | Office | Sleep Medicine | Jacky Calderon PA | | | 2020 | Visit | | [address] | | | | | | [place] | | | | | | [address] | | | | | | | [...] [address] | [place] | [phone] | | [facility] | | [address] | | | - LABORATORY | | | | + + + + + documented in this encounter Visit Diagnoses Not on filedocumented in this encounter"
--- OUTSIDE RECORDS SUMMARY | ~2020-03-24 | XMS | Encounter Summary ---
Demographics + + + | Address | [address] | | | [place] [address] | + + + | Home Phone [...] | Organization | [facility] | | | and [place] | + + + | Address | Unknown | + + + | Phone | Unavailable | + + + Support + + + + + | Name | Relationship | Address | Phone | + + + + + | [employer] | ECON | [phone] | | | | | Unknown | | + + + + + Care Team Providers + +------+ + | Care Private Wealth Advisor Name | Role | Phone | [...] NULL | | | | | | [address] | | | | | | [phone] | | | +--------+ + + + [...] | | | | | [place] [address] | | | | | | [phone] | | | | | | | | +--------+---------+ + + + | 04/30/ | Office | Sleep Medicine | Jacky Calderon PA | | | 2019 | Visit | | [address] | | | | | | [place] | | | | | | [address] | | | | | | | [...] | LV systolic and diastolic functions NML, [place] visually estimates | | | LVEF 60-65%. [...] | LV systolic and diastolic functions NML, [place] visually estimates | | | LVEF 60-65%. [...] pressures of | | | 10-15mmHg. MEASUREMENTS Post Hole Digger: | | | Authenticated by: Avila Haynes DO Report Date/Time: -- | | | [id number] | | + + + + + | Procedure Note | + + | Andrade, Rad Conversion - 06/22/2019 10:54 AM PDT Patient Name: Julia Rowley of | | : 1965 Performing Physician: Avila Haynes | | DO INDICATIONS P | | ulmonary HTN CONCLUSIONS 1. Sinus rhythm. TDS. 2. Cardiac chamber dimensions | | grossly NML. LV systolic and diastolic functions NML, [place] visually estimates LVEF | | 60-65%. RV [...] venous pressures of 10-15mmHg. | | MEASUREMENTS Post Hole Digger: Nereydaticated by: Avila Moses | | Date/Time: -- [id number]:44 IMPRESSION: 1. Sinus rhythm. TDS. 2. Cardiac | | chamber dimensions grossly NML. LV systolic and diastolic functions NML, [place] | | visually estimates LVEF 60-65%. RV [...] | |MEASUREMENTS | | | | | |Post Hole Digger: RUDI | |Authenticated by: Avila Haynes DO | |Report Date/Time: -- [id number]:44 | | | |IMPRESSION: | |1. Sinus rhythm. TDS. 2. Cardiac chamber dimensions grossly NML. LV systolic and diastoli c functions NML, [place] visually estimates LVEF 60-65%. RV grossly NML. 3. Valves grossly N ML. No /AI. Mild MR, mild | |TR, trace PI. 4. No Pericardial effusion. | | 5. IVC plethoric, est systolic PAP 36-41mmHg, borderline. | + + documented in this encounter Visit Diagnoses Not on filedocumented in this encounter"
--- OUTSIDE RECORDS SUMMARY | ~2020-03-24 | XMS | Encounter Summary ---
Demographics + + + | Address | [address] | | | [place] [address] | + + + | Home Phone [...] + + + | Author | [facility] | + + + | Organization | [facility] | + + + | Address | Unknown | + + + | Phone | Unavailable | + + + Support + + +---------+ + | Name | Relationship | Address | Phone | + + +---------+ + | Lidia Thibodeaux | ECON | Unknown | | + + +---------+ + Care Team Providers + +------+ + | Care Automatic Glove Turner And Former Name | Role | Phone | + +------+ + | Yuni Shrestha | PCP | | + +------+ + Encounter Details +--------+ + + + + | Date | Type | Department | Care Team | Description | +--------+ + + + + | 05/17/ | Sfdc Solution Architect | Pulmonary & | Oneal Morejon MD | | | 2012 | | Critical Care | [address] | | | | | Medicine at | [facility], | | | | | [facility] | [place] [address] | | | | | [address] | [phone] | | | | | Loop Phys[facility] | | | | | | [place], 3rd Floor | | | | | | [place], [place] | | | | | | [address] | | | | | | [phone] | | | +--------+ + + + [...]
--- OUTSIDE RECORDS SUMMARY | ~2020-03-24 | XMS | Encounter Summary ---
Demographics + + + | Address | [address] | | | [place] [address] | + + + | Home Phone [...] Organization | [facility] | | | and [place] | + + + | Address | Unknown | + + + | Phone | Unavailable | + + + Support + + + + + | Name | Relationship | Address | Phone | + + + + + | [employer] | ECON | [phone] | | | | | Unknown | | + + + + + Care Team Providers + +------+ + | Care Civil Draftsman Name | Role | Phone | + [...] | sleep apnea); | | | | [place], | | Hypoxemia | | | | [place] [address] | | | | | | [phone] | | | +--------+ + + + [...] 04/16/ | Office | Pulmonology | Helen Astuidllo | | | 2019 | Visit | | MD Vikash [address] | | | | | | [address] | | | | | | [place] [address] | | | | | | [phone] | | | | | | | | +--------+---------+ + + + | 04/30/ | Office | Sleep Medicine | Jacky Calderon PA | | | 2019 | Visit | | [address] | | | | | | [place] | | | | | | [phone] | | | | | | | | +--------+---------+ + + + documented as of this encounter Visit Diagnoses + + | Diagnosis | + + | GLORIA (obstructive sleep apnea) Obstructive sleep apnea (adult) (pediatric) | + + | Hypoxemia | + + documented in this encounter"
--- OUTSIDE RECORDS SUMMARY | ~2020-03-24 | XMS | Encounter Summary ---
Demographics + + + | Address | [address] | | | [place] [address] | + + + | Home Phone [...] | Organization | [facility] | | | and [place] | + + + | Address | Unknown | + + + | Phone | Unavailable | + + + Support + + + + + | Name | Relationship | Address | Phone | + + + + + | [employer] | ECON | [phone] | | | | | Unknown | | + + + + + Care Team Providers + +------+ + | Care Generation Technician Name | Role | Phone | [...] | [address] [place] | [place], [place] [address] | | | | | [address] [place], [place] | [place], [place] | | | | | [address] | [address] | | | | | [phone] | | | +--------+--------+ + + + [...] | | | | | [place] [address] | | | | | | [phone] | | | | | | | | +--------+---------+ + + + | 04/30/ | Office | Sleep Medicine | Jacky Calderon PA | | | 2020 | Visit | | [address] | | | | | | [place] | | | | | | [address] | | | | | | | | +--------+---------+ + + + documented as of this encounter Visit Diagnoses Not on filedocumented in this encounter"
--- OUTSIDE RECORDS SUMMARY | ~2020-03-24 | XMS | Encounter Summary ---
Demographics + + + | Address | [address] | | | [place] [address] | + + + | Home Phone [...] Organization | [facility] | | | and [place] | + + + | Address | Unknown | + + + | Phone | Unavailable | + + + Support + + + + + | Name | Relationship | Address | Phone | + + + + + | [employer] | ECON | [id number] | | | | | Unknown | | + + + + + Care Team Providers + +------+ + | Care Fish Processor Name | Role | Phone | [...] | | [address] [place] | [place], [place] | | | | | [place] | [address] | | | | | [address] | [phone] | | | | | [phone] | | | +--------+ + + + [...] | | | | | [place] [address] | | | | | | [phone] | | | | | | | | +--------+---------+ + + + | 04/30/ | Office | Sleep Medicine | Jacky Calderon PA | | | 2020 | Visit | | [address] | | | | | | [place] | | | | | | [address] | | | | | | | | +--------+---------+ + + + documented as of this encounter Visit Diagnoses Not on filedocumented in this encounter"
--- OUTSIDE RECORDS SUMMARY | ~2020-03-24 | XMS | Encounter Summary ---
Demographics + + + | Address | [address] | | | [place] [address] | + + + | Home Phone [...] Organization | [facility] | | | and [place] | + + + | Address | Unknown | + + + | Phone | Unavailable | + + + Support + + + + + | Name | Relationship | Address | Phone | + + + + + | [employer] | ECON | [id number] | | | | | Unknown | | + + + + + Care Team Providers + +------+ + | Care Favor Maker Name | Role | Phone | [...] + + | 01/23/ | [facility] | Jacky Calderon PA | Primary central | | 2013 | Visit | SLEEP DISORDER [address] | [address] | sleep apnea (Primary | | | | [address] | [place], [place] | Dx) | | | | [place] [address] | [address] | | | | | [phone] | | | +--------+---------+ + + + [...] 12/26/2013 date of polysomnography: 03/13/2013 at [facility] AHI: 64.2 O2%: n/a Machine type: Respironics BiPAP Auto with ResQingdao Crystech Coating Quattro FX full face mask obtained from: [facility] pressure: 16/5 cm with backup rate [...] months, sooner prn. Fifteen minutes were spent [id number] , with the majority of time spent in counseling. Jacky Calderon PA-C cc: BRUCE Beal MD documented in this enco unter Plan of Treatment +--------+---------+ + + + | Date | Type | Specialty | Care Team | Description | +--------+---------+ + + + | 04/16/ | Office | Pulmonology | Helen Astudlilo | | | 2019 | Visit | | MD Vikash [address] | | | | [address] | | | | | | [place] [address] | | | | | | [phone] | | | | | | | | +--------+---------+ + + + | 04/30/ | Office | Sleep Medicine | Jacky Calderon PA | | | 2019 | Visit | | [address] | | | | | | [place] | | | | | | [address] | | | | | | | | +--------+---------+ + + + documented as of this encounter Visit Diagnoses + + | Diagnosis | + + | Primary central sleep apnea - Primary | + + documented in this encounter"
--- OUTSIDE RECORDS SUMMARY | ~2020-03-24 | XMS | Encounter Summary ---
Demographics + + + | Address | [address] | | | [place] [address] | + + + | Home Phone [...] | Organization | [facility] | | | and [place] | + + + | Address | Unknown | + + + | Phone | Unavailable | + + + Support + + + + + | Name | Relationship | Address | Phone | + + + + + | [employer] | ECON | [id number] | | | | | Unknown | | + + + + + Care Team Providers + +------+ + | Care Port Crane Operator Name | Role | Phone [...] [place] | | | | | | [address] | | | | | | [phone] | | | +--------+ + + + [...] | | | | | [place] [address] | | | | | | [phone] | | | | | | | | +--------+---------+ + + + | 04/30/ | Office | Sleep Medicine | Jacky Calderon PA | | | 2020 | Visit | | [address] | | | | | | [place] | | | | | | [address] | | | | | | | | +--------+---------+ + + + documented as of this encounter Visit Diagnoses Not on filedocumented in this encounter"
--- OUTSIDE RECORDS SUMMARY | ~2020-03-24 | XMS | Encounter Summary ---
Demographics + + + | Address | [address] | | | [place] [address] | + + + | Home Phone [...] | [facility] | | | and [place] | + + + | Address | Unknown | + + + | Phone | Unavailable | + + + Support + + + + + | Name | Relationship | Address | Phone | + + + + + | [employer] | ECON | [id number] | | | | | Unknown | | + + + + + Care Team Providers + +------+ + | Care Commercial Real Estate Lender Name | Role | Phone | + [...] | 2018 | | [address] | CUTTING TABLE OPERATOR FIRST [address] | | | | | [address] | [address] [place] [address] | | | | | [place], [place] | [place] [address] | | | | | [address] | [phone] | | | | | [phone] | | | +--------+ + + + [...] | | | | | [place] [address] | | | | | | [phone] | | | | | | | | +--------+---------+ + + + | 04/30/ | Office | Sleep Medicine | Jacky Calderon PA | | | 2019 | Visit | | [address] | | | | | | [place] | | | | | | [address] | | | | | | | [...] | | | 0.80 m/s MV Dec [place]: 2.28 m/s2 MV DecT: 328.32 ms MV E | | | Royla: 0.75 m/s MV E/A Ratio: 0.93 MV PHT: 95.21 ms MVA By | | | PHT: 2.31 cm2 Septal e': 0.04 m/s Septal E/e': 15.90 | | | Lateral e': 0.08 m/s Lateral E/e': 8.87 RAP: 5 mmHg RVSP: | | | 46.05 mmHg TR maxP.05 mmHg TR Vmax: 3.20 m/s | | | Soa Architect: JERRI Authenticated by: Vern Boston Report | [...] cmLVPWd: | | 0.71 cmLVOT Area: 2.68 bm4GRXB Diam: 1.84 cm%FS: 48.21 %EF(Teich): 79.87 | | %ESV(Teich): 16.84 mlLVIDs: 2.23 cmSV(Teich): 66.85 mlRVIDd: 2.99 cmLVEF MOD | | A4C: 62.52 %SV MOD A4C: 57.86 mlLVEDV MOD A4C: 92.54 mlLVLd A4C: 7.40 cmLVESV | | MOD A4C: 34.68 mlLVLs A4C: 6.14 cmLAESV(A-L): 40.81 mlLAESV Index (A-L): 23.05 | | ml/m2LAAs A2C: 16.03 de5RACWK A-L A2C: 43.10 mlLALs A2C: 5.06 cmLAAs A4C: 14.91 | | au2DYXYZ A-L A4C: 37.94 mlLALs A4C: 4.97 cmRAAs: 14.88 au2TLPBM A-L: 41.10 | | mlRAESV MOD: 39.25 mlRALs: 4.57 cmTAPSE: 2.21 cmAV maxP.90 mmHgAV meanPG: | | 6.42 mmHgAV Vmax: 1.72 m/Augustus Vmean: 1.18 m/Augustus VTI: 29.25 cmAVA Vmax: 2.30 | | cm2AVA (VTI): 2.65 ny2VWON (Vmax): 0.00 cm2/m2AVAI (VTI): 0.00 cm2/m2LVOT maxPG: | | 8.77 mmHgLVOT meanP.18 mmHgLVSI Dopp: 43.93 ml/m2LVSV Dopp: 77.77 mlLVOT | | Vmax: 1.48 m/sLVOT Vmean: 0.92 m/sLVOT VTI: 28.95 cmMV A Royal: 0.80 m/sMV Dec | | [place]: 2.28 m/s2MV DecT: 328.32 msMV E Royal: 0.75 m/sMV E/A Ratio: 0.93MV PHT: | | 95.21 msMVA By PHT: 2.31 ra2Ejceez e': 0.04 m/sSeptal E/e': 15.90Lateral e': | | 0.08 m/sLateral E/e': 8.87RAP: 5 mmHgRVSP: 46.05 mmHgTR maxP.05 mmHgTR | | Vmax: 3.20 m/s Soa Architect: JERRIAuthenticated by: Vern Joseph Date/Time: | | [...] A Royal: 0.80 m/s | |MV Dec [place]: 2.28 m/s2 | |MV DecT: 328.32 ms [...] |TR Vmax: 3.20 m/s | | | |Soa Architect: DBS | |Authenticated by: Vern Boston | [...]
--- OUTSIDE RECORDS SUMMARY | ~2020-03-24 | XMS | Encounter Summary ---
Demographics + + + | Address | [address] | | | [place] [address] | + + + | Home Phone [...] Organization | [facility] | | | and [place] | + + + | Address | Unknown | + + + | Phone | Unavailable | + + + Support + + + + + | Name | Relationship | Address | Phone | + + + + + | [employer] | ECON | [id number] | | | | | Unknown | | + + + + + Care Team Providers + +------+ + | Care Supervisor [place] Name | Role | Phone | + +------+ + | Gela Trimble NP | PCP | | + +------+ + Reason for Visit +--------+ + | Reason | Comments | +--------+ + | Other | PA# for prescription Tim CALDERON#[id number] from 08.07.13-08.07.14 | +--------+ + Encounter Details +--------+ + + + + | Date | Type | Department | Care Team | Description | +--------+ + + + + | 08/08/ | Telephone | [facility] | Valeria Reed, | Other (PA# for | | 2012 | | PULMONARY [address] | RN | prescription [place]circa | | | | [place], | | PA#[id number] from | | | | [place] [address] | | 08.07.13-08.07.14) | | | | [phone] | | | +--------+ + + + [...] | | | | | [place] [address] | | | | | | [phone] | | | | | | | [...]
--- OUTSIDE RECORDS SUMMARY | ~2020-03-24 | XMS | Encounter Summary ---
Demographics + + + | Address | [address] | | | [place] [address] | + + + | Home Phone [...] + | Organization | [facility] | | | and [place] | + + + | Address | Unknown | + + + | Phone | Unavailable | + + + Support + + + + + | Name | Relationship | Address | Phone | + + + + + | [employer] | ECON | [id number] | | | | | Unknown | | + + + + + Care Team Providers + +------+ + | Care Tuck Pointer Name | Role | Phone | + [...] + + | 11/20/ | [facility] | [facility] | Jacky Calderon PA | Primary central | | 2014 | Visit | SLEEP DISORDER [address] | [address] | sleep apnea (Primary | | | | [address] | [place], [place] | Dx) | | | | [place] [address] | [address] | | | | | [phone] | | | +--------+---------+ + + + [...] was: 10/16/2013 date of polysomnography: 03/13/[address] [facility] AHI: 64.2 O2%: n/a Machine type: Respironics BiPAP Auto with ResMed Quattro FX full face mask obtained from: [facility] pressure: 18/14 cm 19/5 cm Nights using BiPAP: 34/35 average usage (all nights): 6:27 6:15 average usage (nights used): 6:47 6:26 AHI: 11.0 62.5 Jessie comes in for BiPAP compliance. She was referred by Dr. Lainez to help with her pr oblems with leaks and her apnea not being completely controlled. We had [facility] in [place] change her pressure to the original prescription [...] study, sooner prn. Fifteen minutes were spent [id number], with the majority of time spent in counseling. Jacky Calderon PA-C cc: VIKAS Bela-Xiang Lainez MD documented in this enco unter [...] | | | | | [place] [address] | | | | | | [phone] | | | | | | | [...]
--- OUTSIDE RECORDS SUMMARY | ~2020-03-24 | XMS | Encounter Summary ---
Demographics + + + | Address | [address] | | | [place] [address] | + + + | Home Phone | | + + + | Preferred Language | Unknown | + + + | Marital Status | Single | + + + | Uatsdin Affiliation | NRP | + + + [...] Team Providers + +------+ + | Care Poker Supervisor Name | Role | Phone | + +------+ + | Gela Trimble RESEARCH COORDINATOR | PCP | | + +------+ + [...] | | | | | | | [address] | | | | | | | [place] | | | | | | | Mushtaq Mailcode: | | | | | | | [address] [facility] | | | | | | | Hospital | | | | | | | [place], [place] | | | | | | | [address] | | | | | | | Phone: | | | | | | | [phone] | | | | | | | Fax: | | | | | | | [phone] | +--------+--------+ + + + + Encounter Details +--------+ + + + + | Date | Type | Department | Care Team | Description | +--------+ + + + + | 05/07/ | Results/Int | Pulmonary Function | | Unspecified asthma | | 2012 | erpretation | Lab at [facility] [address] | | (Primary Dx) | | | | [address] | | | | | | [facility] | | | | | | [place], [place] | | | | | | [address] | | | | | | [phone] | | | +--------+ + + + [...] | + +--------+ + + + | FL SPIROMETRY TEST | Routin | 05/08/2013 | [...]
--- OUTSIDE RECORDS SUMMARY | ~2020-03-24 | XMS | Encounter Summary ---
Demographics + + + | Address | [address] | | | [place] [address] | + + + | Home Phone [...] | Organization | [facility] | | | and [place] | + + + | Address | Unknown | + + + | Phone | Unavailable | + + + Support + + + + + | Name | Relationship | Address | Phone | + + + + + | [employer] | ECON | [id number] | | | | | Unknown | | + + + + + Care Team Providers + +------+ + | Care Publishing Editor Name | Role | Phone | [...] [place] | | | | | | [address] | | | | | | [phone] | | | +--------+ + + + [...] | | | | | [place] [address] | | | | | | [phone] | | | | | | | | +--------+---------+ + + + | 04/30/ | Office | Sleep Medicine | Jacky Calderon PA | | | 2020 | Visit | | [address] | | | | | | [place] | | | | | | [address] | | | | | | | | +--------+---------+ + + + documented as of this encounter Visit Diagnoses Not on filedocumented in this encounter"
--- OUTSIDE RECORDS SUMMARY | ~2020-03-24 | XMS | Encounter Summary ---
Demographics + + + | Address | [address] | | | [place] [address] | + + + | Home Phone [...] Team Providers + +------+ + | Care Jewel Stringer Name | Role | Phone | + [...] Pavilion | | | | | | [address] | | | | | | Loop Physician's | | | | | | [place], [address] [place] [address] | | | | | | [place], [place] | | | | | | [address] | | | | | | [phone] | | | +--------+ + + + [...]
--- OUTSIDE RECORDS SUMMARY | ~2020-03-24 | XMS | Encounter Summary ---
Demographics + + + | Address | [address] | | | [place] [address] | + + + | Home Phone [...] | Organization | [facility] | | | and [place] | + + + | Address | Unknown | + + + | Phone | Unavailable | + + + Support + + + + + | Name | Relationship | Address | Phone | + + + + + | [employer] | ECON | [id number] | | | | | Unknown | | + + + + + Care Team Providers + +------+ + | Care Acid Bath Mixer Name | Role | Phone | [...] S | Dx) | | | | [place], | [place] [address] | | | | | [place] [address] | [phone] | | | | | [phone] | | | +--------+ + + + [...] | | | | | [place] [address] | | | | | | [phone] | | | | | | | | +--------+---------+ + + + | 07/01/ | Office | Sleep Medicine | Jacky Calderon PA | | | 2020 | Visit | | [address] [facility] | | | | | | [place] | | | | | | [address] | | | | | | | [...] | + + + + + | [facility] | [address] | [place] | [phone] | | [facility] | | [address] | | | - IMAGING | | | | + + + + + documented in this encounter Visit Diagnoses + + | Diagnosis | + + | Lung nodule - Primary Solitary pulmonary nodule | + + documented in this encounter"
--- OUTSIDE RECORDS SUMMARY | ~2020-03-24 | XMS | Encounter Summary ---
Demographics + + + | Address | [address] | | | [place] [address] | + + + | Home Phone [...] + | Organization | [facility] | | | and [place]am[place] | + + + | Address | Unknown | + + + | Phone | Unavailable | + + + Support + + + + + | Name | Relationship | Address | Phone | + + + + + | [employer] | ECON | [id number] | | | | | Unknown | | + + + + + Care Team Providers + +------+ + | Care Loan Review Officer Name | Role | Phone | [...] [place], [place] | | | | | [address] | [address] | | | | | [phone] | [phone] | | | | | | | [...] | | | | | [place] [address] | | | | | | [phone] | | | | | | | [...]
--- OUTSIDE RECORDS SUMMARY | ~2020-03-24 | XMS | Encounter Summary ---
Demographics + + + | Address | [address] | | | [place] [address] | + + + | Home Phone [...] Organization | [facility] | | | and [place]am[place] | + + + | Address | Unknown | + + + | Phone | Unavailable | + + + Support + + + + + | Name | Relationship | Address | Phone | + + + + + | [employer] | ECON | [id number] | | | | | Unknown | | + + + + + Care Team Providers + +------+ + | Care Supervisor Of Research Name | Role | Phone | + [...] [place], [place] | | | | | [address] | [address] | | | | | [phone] | [phone] | | | | | | | [...] | | | | | [place] [address] | | | | | | [phone] | | | | | | | | +--------+---------+ + + + | 04/30/ | Office | Sleep Medicine | Jacky Calderon PA | | | 2020 | Visit | | [address] | | | | | | [place] | | | | | | [address] | | | | | | | | +--------+---------+ + + + documented as of this encounter Visit Diagnoses Not on filedocumented in this encounter"
--- OUTSIDE RECORDS SUMMARY | ~2020-03-24 | XMS | Encounter Summary ---
Demographics + + + | Address | [address] | | | [place] [address] | + + + | Home Phone [...] + | Organization | [facility] | | | and [place]am[place] | + + + | Address | Unknown | + + + | Phone | Unavailable | + + + Support + + + + + | Name | Relationship | Address | Phone | + + + + + | [employer] | ECON | [id number] | | | | | Unknown | | + + + + + Care Team Providers + +------+ + | Care Computer Support Technician Name | Role | Phone | [...] | apnea (adult) | | | | [place], | | (pediatric) (Primary | | | | [place] [address] | | Dx) | | | | [phone] | | | +--------+ + + + [...] | | | | | [place] [address] | | | | | | [phone] | | | | | | | | +--------+---------+ + + + | 04/30/ | Office | Sleep Medicine | Jacky Calderon PA | | | 2020 | Visit | | [address] | | | | | | [place] | | | | | | [address] | | | | | | | | +--------+---------+ + + + documented as of this encounter Visit Diagnoses + + | Diagnosis | + + | Obstructive sleep apnea (adult) (pediatric) - Primary | + + documented in this encounter"
--- OUTSIDE RECORDS SUMMARY | ~2020-03-24 | XMS | Encounter Summary ---
Demographics + + + | Address | [address] | | | [place] [address] | + + + | Home Phone [...] Organization | [facility] | | | and [place]am[place] | + + + | Address | Unknown | + + + | Phone | Unavailable | + + + Support + + + + + | Name | Relationship | Address | Phone | + + + + + | [employer] | ECON | [id number] | | | | | Unknown | | + + + + + Care Team Providers + +------+ + | Care Sr. Manager Marketing Name | Role | Phone | [...] Farrar MD | | | | | [place], | | | | | | [place] [address] | | | | | | [phone] | | | +--------+ + + + [...] | | | | | [place] [address] | | | | | | [phone] | | | | | | | | +--------+---------+ + + + | 04/30/ | Office | Sleep Medicine | Jacky Calderon PA | | | 2020 | Visit | | [address] | | | | | | [place] | | | | | | [address] | | | | | | | | +--------+---------+ + + + documented as of this encounter Visit Diagnoses Not on filedocumented in this encounter"
--- OUTSIDE RECORDS SUMMARY | ~2020-03-24 | XMS | Encounter Summary ---
Demographics + + + | Address | [address] | | | [place] [address] | + + + | Home Phone [...] | [facility] | | | and [place]am[place] | + + + | Address | Unknown | + + + | Phone | Unavailable | + + + Support + + + + + | Name | Relationship | Address | Phone | + + + + + | [employer] | ECON | [id number] | | | | | Unknown | | + + + + + Care Team Providers + +------+ + | Care Finisher Brush Name | Role | Phone | + [...] | apnea; Hypoxemia | | | | [place], | | | | | | [place] [address] | | | | | | [phone] | | | +--------+ + + + [...] | | | | | [place] [address] | | | | | | [phone] | | | | | | | | +--------+---------+ + + + | 04/30/ | Office | Sleep Medicine | Jacky Calderon PA | | | 2019 | Visit | | [address] | | | | | | [place] | | | | | | [address] | | | | | | | | +--------+---------+ + + + documented as of this encounter Visit Diagnoses + + | Diagnosis | + + | Obstructive sleep apnea Obstructive sleep apnea (adult) (pediatric) | + + | Hypoxemia | + + documented in this encounter"
--- OUTSIDE RECORDS SUMMARY | ~2020-03-24 | XMS | Encounter Summary ---
Demographics + + + | Address | [address] | | | [place] [address] | + + + | Home Phone [...] + | Organization | [facility] | | | and [place]am[place] | + + + | Address | Unknown | + + + | Phone | Unavailable | + + + Support + + + + + | Name | Relationship | Address | Phone | + + + + + | [employer] | ECON | [id number] | | | | | Unknown | | + + + + + Care Team Providers + +------+ + | Care Ambulatory Care Coordinator Name | Role | Phone [...] | | Chronic | Shanice Paez, | Scuot Mistry MD | | | | | obstructive | [address] | [address] | | | | | pulmonary | [place] | [place], [place] | | | | | disease, | [place], | [address] | | | | | unspecified | [place] | Phone: | | | | | (HCC) | [address] | [phone] | | | | | Procedures | Phone: | Fax: | | | | | OFFICE VISIT | [phone] | [phone] | | | | | EXTENDED | Fax: | | | | | | | [phone] | | +--------+--------+ + + + + Encounter Details +--------+---------+ + + + | Date | Type | Department | Care Team | Description | +--------+---------+ + + + | 01/31/ | Office | [facility] | Scout Arthur, | Primary pulmonary | | 2019 | Visit | PULMONARY [address] | [address] | hypertension (HCC) | | | | [place], | [place] [address] | (Primary Dx); | | | | [place] [address] | [phone] | Hypoxia | | | | [phone] | | | +--------+---------+ + + + [...] Scout Arthur MD - 01/31/2019 2:00 PM [id number] former smoker with primar y pulmonary hypertension [...] so we are asking [facility] in [facility] to give her a new BiPAP [...] is a note from Dr. Huang in [place] that CMP, CBC, and ESR w ere [...] BiPAP equipme nt. We spent 20 minutes, [id number], at least half in counseling. Word processing [...] | | | | | [place] [address] | | | | | | [phone] | | | | | | | | +--------+---------+ + + + | 04/30/ | Office | Sleep Medicine | Jacky Calderon PA | | | 2019 | Visit | | [address] | | | | | | [place] | | | | | | [address] | | | | | | | | +--------+---------+ + + + documented as of this encounter Visit Diagnoses + + | Diagnosis | + + | Primary pulmonary hypertension (HCC) - Primary Primary pulmonary hypertension | + + | Hypoxia Hypoxemia | + + documented in this encounter
--- OUTSIDE RECORDS SUMMARY | ~2020-03-24 | XMS | Encounter Summary ---
Demographics + + + | Address | [address] | | | [place] [address] | + + + | Home Phone [...] | Organization | [facility] | | | and [place]am[place] | + + + | Address | Unknown | + + + | Phone | Unavailable | + + + Support + + + + + | Name | Relationship | Address | Phone | + + + + + | [employer] | ECON | [id number] | | | | | Unknown | | + + + + + Care Team Providers + +------+ + | Care Trade Sales Assistant Name | Role | Phone [...] | | | Pulmonology | airway | [employer] [address] | MD | | | | | obstruction, | | | | | | | not | [address] | | | | | | elsewhere | [place], | | | | | | classified | [place] [address] | | | | | | Obstructive | Phone: | | | | | | sleep apnea | [phone] | | | | | | (adult) | Fax: | | | | | | (pediatric) | [phone] | | | | | | Procedures | | | | | | | [place] OFFICE | | | | | | [...] MD | hypertension | | | | [place], | | (Primary Dx); [place] | | | | [place] [address] | | (chronic obstructive | | | | [phone] | | pulmonary disease); | | | [...] Years of Education: N/A Occupational History Disabled. [employer] Social History Main Topics Smoking status: Former Smoker -- 1.0 packs/day for 20 years Types: Cigarettes Quit date: 05/14/2013 Smokeless tobacco: None Alcohol Use: Yes Comment: history of abuse Drug Use: Yes Special: Cocaine Comment: history of cocaine use Sexually Active: None Other Topics Concern None Social History Narrative Lives at [employer]. Allergies: Allergies Allergen Reactions Erythromycin Metronidazole Penicillins [...] TABS Take 2,000 Units by mouth Daily. Bertrand Starch POWD by Does not apply route [...] tablet Take 15 mg by mouth Daily. [place]-3 Fatty Acids (SEA-OMEGA 30) 1200 MG CAPS [...] made to ensure accuracy; however, inadvertent computerized lay midwife errors may be pre sent. documented in [...] | | | | | [place] [address] | | | | | | [phone] | | | | | | | | +--------+---------+ + + + | 04/30/ | Office | Sleep Medicine | Jacky Calderon PA | | | 2019 | Visit | | [address] | | | | | | [place] | | | | | | [phone] | | | | | | | [...]
--- OUTSIDE RECORDS SUMMARY | ~2020-03-24 | XMS | Encounter Summary ---
Demographics + + + | Address | [address] | | | [place] [address] | + + + | Home Phone [...] [facility] | | | and Abram[place] | + + + | Address | Unknown | + + + | Phone | Unavailable | + + + Support + + + + + | Name | Relationship | Address | Phone | + + + + + | [employer] | ECON | [id number] | | | | | Unknown | | + + + + + Care Team Providers + +------+ + | Care Compliance Tester Name | Role | Phone | [...] Farrar MD | | | | | [place], | | | | | | [place] [address] | | | | | | [phone] | | | +--------+ + + + [...] | | | | | [place] [address] | | | | | | [phone] | | | | | | | | +--------+---------+ + + + | 04/30/ | Office | Sleep Medicine | Jacky Calderon PA | | | 2019 | Visit | | [address] | | | | | | [place] | | | | | | [address] | | | | | | | | +--------+---------+ + + + documented as of this encounter Visit Diagnoses Not on filedocumented in this encounter"
--- OUTSIDE RECORDS SUMMARY | ~2020-03-24 | XMS | Encounter Summary ---
Demographics + + + | Address | [address] | | | [place] [address] | + + + | Home Phone [...] | Organization | [facility] | | | and [place]am[place] | + + + | Address | Unknown | + + + | Phone | Unavailable | + + + Support + + + + + | Name | Relationship | Address | Phone | + + + + + | [employer] | ECON | [id number] | | | | | Unknown | | + + + + + Care Team Providers + +------+ + | Care Underwriter Mortgage Loan Name | Role | Phone | + [...] | | | | | | [place] [address] | | | | | | [phone] | | | +--------+ + + + [...] | | | | | [place] [address] | | | | | | [phone] | | | | | | | | +--------+---------+ + + + | 04/30/ | Office | Sleep Medicine | Jacky Calderon PA | | | 2020 | Visit | | [address] | | | | | | [place] | | | | | | [address] | | | | | | | | +--------+---------+ + + + documented as of this encounter Visit Diagnoses Not on filedocumented in this encounter"
--- OUTSIDE RECORDS SUMMARY | ~2020-03-24 | XMS | Clinical Summary ---
Demographics + + + | Address | [address] | | | [place] [address] | + + + | Home Phone [...] Team Providers + +------+ + | Care Merchandise Support Associate Name | Role | Phone | + +------+ + | Yuni Shrestha | PCP | | + +------+ + Source Comments SARAH is fully live on both EpicCare Ambulatory and EpicCare InPatient.[facility] Allergies + + + [...] e | + + + +---------+------+------+-------+ | [place]-3 Fatty | Take 1 Cap by mouth [...] | + +--------+ +--------+ + +--------+ | FUEL EFFICIENT AIRCRAFT DESIGNER MEDICAID | FUEL EFFICIENT AIRCRAFT DESIGNER | xxxxxxxx | Effect | | | [...] PLUS | | 12-Pre | 6 | 14014 | id | | | OPEN | | sent | | [place] | | | | CARD | | | | [id number] | | + +--------+ +--------+ + +--------+ [...] | 1965 | [phone] | [place] [address] | | | jammie | | | 0 (Home) | | + +--------+ +--------+ + + | Margarita Rowley May | Person | Self | [birth year] | [address] | | | al/Fam | | 1965 | [phone] | [place] [address] | | | jammie | | | [...]
--- OUTSIDE RECORDS SUMMARY | ~2020-03-24 | XMS | Encounter Summary ---
Demographics + + + | Address | [address] | | | [place] [address] | + + + | Home Phone [...] | Organization | [facility] | | | and [place]am[place] | + + + | Address | Unknown | + + + | Phone | Unavailable | + + + Support + + + + + | Name | Relationship | Address | Phone | + + + + + | [employer] | ECON | [id number] | | | | | Unknown | | + + + + + Care Team Providers + +------+ + | Care Pharmacy Technician Instructor Name | Role | Phone | [...] | Jacky Calderon | | | | Art Therapy Specialist / | Obstructive | Shanice Paze, | D, PA [address] | | | | Sleep | sleep apnea | [address] | | | | Medicine | (adult) | [place] | [place], | | | | | (pediatric) | [place], | [place] [address] | | | | | 2 mo cpap | [place] | Phone: | | | | | follow up, | [address] | [phone] | | | | | bring | Phone: | Fax: | | | | | equip/AO- | [phone] | [phone] | | | | | new machine | Fax: | | | | | | Procedures | [phone] | | | | | | 05/30 [...] + + | 04/16/ | Office | [facility] | Jacky Calderon PA | Primary central | | 2019 | Visit | SLEEP DISORDER [address] | [address] | sleep apnea (Primary | | | | [address] [place] | [place], [place] | Dx) | | | | [place] [address] | [address] | | | | | [phone] | | | +--------+---------+ + + + [...] visit: 06/14/2018 date of polysomnography: 03/13/2013 at [facility] AHI: 64.2 O2%: n/a Machine type: Respironics DreamStation Auto BiPAP Mask type: ResMed Quattro FX full face mask DME: [facility] [place] pressure: 16/5 cm with backup rate of [...] Assessment: Problem #1: PRIMARY CENTRAL SLEEP APNEA ([id number]) This is controlled with BiPAP and oxygen [...] | | | | | | [place] [address] | | | | | | [phone] | | | | | | | | +--------+---------+ + + + | 04/30/ | Office | Sleep Medicine | Jacky Calderon PA | | | 2020 | Visit | | [address] | | | | | | [place] | | | | | | [address] | | | | | | | | +--------+---------+ + + + documented as of this encounter Visit Diagnoses + + | Diagnosis | + + | Primary central sleep apnea - Primary | + + documented in this encounter"
--- OUTSIDE RECORDS SUMMARY | ~2020-03-24 | XMS | Encounter Summary ---
Demographics + + + | Address | [address] | | | [place] [address] | + + + | Home Phone [...] Organization | [facility] | | | and [place]am[place] | + + + | Address | Unknown | + + + | Phone | Unavailable | + + + Support + + + + + | Name | Relationship | Address | Phone | + + + + + | [employer] | ECON | [id number] | | | | | Unknown | | + + + + + Care Team Providers + +------+ + | Care Hunting Guide Name | Role | Phone | [...] | | | | | pulmonary | SHOW HOST OR HOSTESS [address] | [address] | | | | | hypertension | [address] | [place], [place] | | | | | (HCC) | [place], | [address] | | | | | Procedures | [place] [address] | Phone: | | | | | F/U | Phone: | [phone] | | | | | | [phone] | Fax: | | | | | | Fax: | [phone] | | | | | | [phone] | | +--------+--------+ + + + + Encounter Details +--------+---------+ + + + | Date | Type | Department | Care Team | Description | +--------+---------+ + + + | 02/01/ | Office | [facility] | Jerson Scout Mistry, | Primary pulmonary | | 2017 | Visit | PULMONARY [address] | [address] | hypertension (HCC) | | | | [place], | [place] [address] | (Primary Dx); | | | | [place] [address] | [phone] | Chronic respiratory | | | | [phone] | | failure with hypoxia | | [...] on medication and oxygen and BiPAP at [facility] HPI: I am able to reconstruct this patient's history with the benefit of Dr. Elvi rivera's pulmonary clinic notes from [facility] in [facility] from May 17, 2016. Today, she [...] was apparently diagnosed August 08, 2013 in [place] at [facility] on 2 L with right atrial [...] 2015 chest x-ray. An echocardiogram from [facility] done March 09, 2016, a [...] be seeing her pulmonary hypertension specialist in [place] before then. The note from 2016 was very helpful. Over half the session was spent in counseling. 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
--- OUTSIDE RECORDS SUMMARY | ~2020-03-24 | XMS | Encounter Summary ---
Demographics + + + | Address | [address] | | | [place] [address] | + + + | Home Phone [...] Team Providers + +------+ + | Care Admissions Assistant Name | Role | Phone | [...] [address] | | | | | | [place], [place] | | | | | | [address] | | | +--------+ + + + [...]
--- OUTSIDE RECORDS SUMMARY | ~2020-03-24 | XMS | Encounter Summary ---
Demographics + + + | Address | [address] | | | [place] [address] | + + + | Home Phone [...] | Organization | [facility] | | | and Abram[place] | + + + | Address | Unknown | + + + | Phone | Unavailable | + + + Support + + + + + | Name | Relationship | Address | Phone | + + + + + | [employer] | ECON | [id number] | | | | | Unknown | | + + + + + Care Team Providers + +------+ + | Care Entry Level Accounting Clerk Name | Role | Phone | + +------+ + | Yuni Shrestha | PCP | | + +------+ + Encounter Details +--------+ + + + + | Date | Type | Department | Care Team | Description | +--------+ + + + + | 06/30/ | Abstract | [facility] [place] | [facility], | | | 2015 | | GASTROENTEROLOGY | BRITTANY Maddox [address] | | | | | [address] [place] | [place], [place] [address] | | | | | [address] [place], [place] | [place], [place] | | | | | [address] | [address] | | | | | [phone] | | | +--------+ + + + [...] | | | | | [place] [address] | | | | | | [phone] | | | | | | | | +--------+---------+ + + + | 04/30/ | Office | Sleep Medicine | [place], Jacky D, PA | | | 2020 | Visit | | [address] | | | | | | [place] | | | | | | [address] | | | | | | | [...]
--- OUTSIDE RECORDS SUMMARY | ~2020-03-24 | XMS | Encounter Summary ---
Demographics + + + | Address | [address] | | | [place] [address] | + + + | Home Phone [...] Organization | [facility] | | | and [place]am[place] | + + + | Address | Unknown | + + + | Phone | Unavailable | + + + Support + + + + + | Name | Relationship | Address | Phone | + + + + + | [employer] | ECON | [id number] | | | | | Unknown | | + + + + + Care Team Providers + +------+ + | Care Leather Parts Matcher Name | Role | Phone | + [...] | [address] | [place] [address] | | | | | [place] | [phone] | | | | | [address] | | | | | | [phone] | Shady [place] | | | | | | MD [address] | | | | | | [place], [place] | | | | | | [address] | | | | | | [phone] | | | | | | | [...] | | | | | [place] [address] | | | | | | [phone] | | | | | | | [...]
--- OUTSIDE RECORDS SUMMARY | ~2020-03-24 | XMS | Encounter Summary ---
Demographics + + + | Address | [address] | | | [place] [address] | + + + | Home Phone [...] Organization | [facility] | | | and [place]am[place] | + + + | Address | Unknown | + + + | Phone | Unavailable | + + + Support + + + + + | Name | Relationship | Address | Phone | + + + + + | [employer] | ECON | [id number] | | | | | Unknown | | + + + + + Care Team Providers + +------+ + | Care Butter Grader Name | Role | Phone | [...] | | | Pulmonology | airway | GLAZING MACHINE OPERATOR [address] | MD | | | | | obstruction, | [address] | | | | | | not | [place], | | | | | | elsewhere | [place] [address] | | | | | | classified | Phone: | | | | | | Procedures | [phone] | | | | | | F/U | Fax: | | | | | | | [phone] | | +--------+--------+ + + + + Encounter Details +--------+---------+ + + + | Date | Type | Department | Care Team | Description | +--------+---------+ + + + | 08/08/ | Office | [facility] [place] | [place], | Primary pulmonary | | 2015 | Visit | PULMONARY [address] | Vear Farrar MD | hypertension | | | | [place], | | (Primary Dx); [place] | | | | [place] [address] | | (chronic obstructive | | | | [phone] | | pulmonary disease); | | | [...] to have a box delivered by the [employer]. Wear the finger probe through the night. Do the test on 5L bled in to th e BiPAP. Call the [facility] [employer] to have the box picked up [...] follow up echocardiogram, which was done in [place] . Since their last visit she feels [...] COPD (chronic obstructive pulmonary disease) ([facility]) moderate, FEV1 1.40 (59%) Pulmonary hypertension ([facility]) severe, class 1, class 2, class 3 Bipolar disorder ([facility]) PTSD (post-traumatic stress disorder) Osteoarthritis Obstructive sleep apnea AHI 64.2 Vitamin D deficiency GERD (gastroesophageal reflux disease) Hypothyroidism Seizure disorder ([facility]) Developmental delay Hypoxemia on 2L [...] Years of Education: N/A Occupational History Disabled. [employer] Social History Main Topics Smoking status: Current [...] Concern None Social History Narrative Lives at [employer]. Allergies: Allergies Allergen Reactions Erythromycin Metronidazole Penicillins [...] TABS Take 2,000 Units by mouth Daily. [place] Starch POWD by Does not apply route [...] mg onto the skin every 24 hours. Sebec-3 Fatty Acids (SEA-OMEGA 30) 1200 MG CAPS [...] echo in July with visit by local chief internal auditor. If further increase in estimated PASP by [...] made to ensure accuracy; however, inadvertent computerized order booker errors may be pre sent. documented in [...] | | | | | [place] [address] | | | | | | [phone] | | | | | | | | +--------+---------+ + + + | 04/30/ | Office | Sleep Medicine | Jacky Calderon PA | | | 2019 | Visit | | [address] | | | | | | [place] | | | | | | [address] | | | | | | | [...] + | [facility] | [address] | [place] | [phone] | | [facility] | | [address] | | | - LABORATORY | | [...] | mL/min/1.73m2 | ARACELI | | | LIBYAN | RATE,ESTIMATED | | MEDICAL | | | | mL/min/1.67m1Cdrs than | | CENTER - | | [...] [address] | [place] | [phone] | | [facility] | | [address] | | | - LABORATORY | | [...]
--- OUTSIDE RECORDS SUMMARY | ~2020-03-24 | XMS | Encounter Summary ---
Demographics + + + | Address | [address] | | | [place] [address] | + + + | Home Phone [...] | [facility] | | | and [place] | + + + | Address | Unknown | + + + | Phone | Unavailable | + + + Support + + + + + | Name | Relationship | Address | Phone | + + + + + | Projects Horizon | ECON | [id number] | | | | | Unknown | | + + + + + Care Team Providers + +------+ + | Care Shop Coordinator Name | Role | Phone | + +------+ + PCP | Unavailable | + +------+ + Encounter Details +--------+ + + + + | Date | Type | Department | Care Team | Description | +--------+ + + + + | 01/10/ | Hospital | [facility] | Caesar Buitrago | | | 2008 | Encounter | HOSPITAL MED SURG | [address] | | | | | [address] [place] | [facility], | | | | | [place] | [place] [address] | | | | | [address] | [phone] | | | | | [phone] | | | +--------+ + + + [...] | | | | | [place] [address] | | | | | | [phone] | | | | | | | | +--------+---------+ + + + | 04/30/ | Office | Sleep Medicine | Jacky Calderon PA | | | 2020 | Visit | | [address] | | | | | | [place] | | | | | | [address] | | | | | | | | +--------+---------+ + + + documented as of this encounter Visit Diagnoses Not on filedocumented in this encounter"
--- OUTSIDE RECORDS SUMMARY | ~2020-03-24 | XMS | Encounter Summary ---
Demographics + + + | Address | [address] | | | [place] [address] | + + + | Home Phone [...] Organization | [facility] | | | and [place] | + + + | Address | Unknown | + + + | Phone | Unavailable | + + + Support + + + + + | Name | Relationship | Address | Phone | + + + + + | Projects Horizon | ECON | [id number] | | | | | Unknown | | + + + + + Care Team Providers + +------+ + | Care Reforestation Worker Name | Role | Phone | + +------+ + | Yuni Shrestha | PCP | | + +------+ + Encounter Details +--------+ + + + + | Date | Type | Department | Care Team | Description | +--------+ + + + + | 02/01/ | [facility] | [facility] | Scout Arthur, | Lung nodule | | 2017 | Encounter | MED CTR XRAY [address] | | | | | [place] | [place] [address] | | | | | [place] [address] | [phone] | | | | | [phone] | | | +--------+ + + + [...] + + + +---------+ + + | [place] Starch POWD | by Does not apply [...] | | | | | [place] [address] | | | | | | [phone] | | | | | | | | +--------+---------+ + + + | 04/30/ | Office | Sleep Medicine | Jacky Calderon PA | | | 2019 | Visit | | [address] | | | | | | [place] | | | | | | [address] | | | | | | | [...] ST. | [address] | [place] | [phone] | | [facility] | | [address] | | | - IMAGING | | | | + + + + + documented in this encounter Visit Diagnoses + + | Diagnosis | + + | Lung nodule Solitary pulmonary nodule | + + documented in this encounter"
--- OUTSIDE RECORDS SUMMARY | ~2020-03-24 | XMS | Encounter Summary ---
Demographics + + + | Address | [address] | | | [place] [address] | + + + | Home Phone [...] | Organization | [facility] | | | and [place] | + + + | Address | Unknown | + + + | Phone | Unavailable | + + + Support + + + + + | Name | Relationship | Address | Phone | + + + + + | Projects Horizon | ECON | [id number] | | | | | Unknown | | + + + + + Care Team Providers + +------+ + | Care Wax Ball Knock Out Worker Name | Role | Phone | [...] | hypertension (HCC) | | | | [place], | | | | | | [place] [address] | | | | | | [phone] | | | +--------+ + + + [...] | | | | | [place] [address] | | | | | | [phone] | | | | | | | | +--------+---------+ + + + | 04/30/ | Office | Sleep Medicine | Jacky Calderon PA | | | 2019 | Visit | | [address] | | | | | | [place] | | | | | | [address] | | | | | | | | +--------+---------+ + + + documented as of this encounter Visit Diagnoses + + | Diagnosis | + + | Pulmonary hypertension (HCC) Other chronic pulmonary heart diseases | + + documented in this encounter"
--- OUTSIDE RECORDS SUMMARY | ~2020-03-24 | XMS | Encounter Summary ---
Demographics + + + | Address | [address] | | | [place] [address] | + + + | Home Phone [...] | Organization | [facility] | | | and [place] | + + + | Address | Unknown | + + + | Phone | Unavailable | + + + Support + + + + + | Name | Relationship | Address | Phone | + + + + + | Projects Horizon | ECON | [phone] | | | | | Unknown | [...] | | | | [place] | [place] [address] | Obstructive sleep | | | | [place] [address] | [phone] | apnea (adult) | | | | [phone] | | (pediatric) | +--------+ + + [...] | | | | | [place] [address] | | | | | | [phone] | | | | | | | | +--------+---------+ + + + | 04/30/ | Office | Sleep Medicine | Jacky Calderon PA | | | 2019 | Visit | | [address] | | | | | | [place] | | | | | | [address] | | | | | | | | +--------+---------+ + + + documented as of this encounter Visit Diagnoses + + | Diagnosis | + + | Obstructive sleep apnea - Primary Obstructive sleep apnea (adult) (pediatric) | + + | Obstructive sleep apnea (adult) (pediatric) | + + documented in this encounter"
--- OUTSIDE RECORDS SUMMARY | ~2020-03-24 | XMS | Encounter Summary ---
Demographics + + + | Address | [address] | | | [place] [address] | + + + | Home Phone [...] + | Organization | [facility] | | | and [place] | + + + | Address | Unknown | + + + | Phone | Unavailable | + + + Support + + + + + | Name | Relationship | Address | Phone | + + + + + | Projects Horizon | ECON | [id number] | | | | | Unknown | | + + + + + Care Team Providers + +------+ + | Care Rayon Winder Name | Role | Phone | [...] | | | | | | [place] [address] | | | | | | [phone] | | | +--------+ + + + [...] | | | | | [place] [address] | | | | | | [phone] | | | | | | | | +--------+---------+ + + + | 04/30/ | Office | Sleep Medicine | Jacky Calderon PA | | | 2019 | Visit | | [address] | | | | | | [place] | | | | | | [id number] | | | | | | | | +--------+---------+ + + + documented as of this encounter Visit Diagnoses Not on filedocumented in this encounter"
--- OUTSIDE RECORDS SUMMARY | ~2020-03-24 | XMS | Encounter Summary ---
Demographics + + + | Address | [address] | | | [place] [address] | + + + | Home Phone [...] Organization | [facility] | | | and [place] | + + + | Address | Unknown | + + + | Phone | Unavailable | + + + Support + + + + + | Name | Relationship | Address | Phone | + + + + + | Projects Horizon | ECON | [id number] | | | | | Unknown | | + + + + + Care Team Providers + +------+ + | Care Slunk Skin Curer Name | Role | Phone | [...] | RN | | | | | [place], | | | | | | [place] [address] | | | | | | [phone] | | | +--------+ + + + [...] | | | | | [place] [address] | | | | | | [phone] | | | | | | | | +--------+---------+ + + + | 04/30/ | Office | Sleep Medicine | Jacky Calderon PA | | | 2019 | Visit | | [address] | | | | | | [place] | | | | | | [address] | | | | | | | | +--------+---------+ + + + documented as of this encounter Visit Diagnoses + + | Diagnosis | + + | Obstructive sleep apnea (adult) (pediatric) - Primary | + + documented in this encounter"
--- OUTSIDE RECORDS SUMMARY | ~2020-03-24 | XMS | Encounter Summary ---
Demographics + + + | Address | [address] | | | [place] [address] | + + + | Home Phone [...] Organization | [facility] | | | and [place] | + + + | Address | Unknown | + + + | Phone | Unavailable | + + + Support + + + + + | Name | Relationship | Address | Phone | + + + + + | Projects Horizon | ECON | [phone] | | | | | Unknown | | + + + + + Care Team Providers + +------+ + | Care Ramp Service Employee Name | Role | Phone | + +------+ + | Yuni Shrestha | PCP | | + +------+ + Encounter Details +--------+ + + + + | Date | Type | Department | Care Team | Description | +--------+ + + + + | 02/02/ | Hospital | [facility] | [place], | Primary pulmonary | | 2016 | Encounter | MED CTR PULMONARY | Vera Farrar MD | hypertension | | | | FUNCTION [address] | | | | | | [place], | | | | | | [place] [address] | | | | | | [phone] | | | +--------+ + + + [...] + + + +---------+ + + | [place] Starch POWD | by Does not apply [...] + + + +---------+ + + | [place]-3 Fatty | Take by mouth. | | [...] 08/06/20 | | | Therapy Supplies | [facility]'s office | | | 13 | [...] | | | | | [place] [address] | | | | | | [phone] | | | | | | | | +--------+---------+ + + + | 04/30/ | Office | Sleep Medicine | Jacky Calderon PA | | | 2019 | Visit | | [address] | | | | | | [place] | | | | | | [address] | | | | | | | [...]
--- OUTSIDE RECORDS SUMMARY | ~2020-03-24 | XMS | Encounter Summary ---
Demographics + + + | Address | [address] | | | [place] [address] | + + + | Home Phone [...] + + | Organization | [facility] | | | and [place] | + + + | Address | Unknown | + + + | Phone | Unavailable | + + + Support + + + + + | Name | Relationship | Address | Phone | + + + + + | Projects Horizon | ECON | [id number] | | | | | Unknown | | + + + + + Care Team Providers + +------+ + | Care Sharepoint Designer Developer Name | Role | Phone | [...] | | | | [place] | [place], [place] | | | | | [place] | [address] | | | | | [address] | [phone] | | | | | [phone] | | | +--------+ + + + [...] | | | | | [place] [address] | | | | | | [phone] | | | | | | | | +--------+---------+ + + + | 04/30/ | Office | Sleep Medicine | Jacky Calderon PA | | | 2020 | Visit | | [address] | | | | | | [place] | | | | | | [address] | | | | | | | | +--------+---------+ + + + documented as of this encounter Visit Diagnoses Not on filedocumented in this encounter"
--- OUTSIDE RECORDS SUMMARY | ~2020-03-24 | XMS | Encounter Summary ---
Demographics + + + | Address | [address] | | | [place] [address] | + + + | Home Phone [...] + + | Organization | [facility] | | | and [place] | + + + | Address | Unknown | + + + | Phone | Unavailable | + + + Support + + + + + | Name | Relationship | Address | Phone | + + + + + | Projects Horizon | ECON | [id number] | | | | | Unknown | | + + + + + Care Team Providers + +------+ + | Care Academic Advisement Director Name | Role | Phone | [...] | | | | [place] | [place], [place] | | | | | [place] | [address] | | | | | [address] | [phone] | | | | | [phone] | | | +--------+ + + + [...] | | | | | [place] [address] | | | | | | [phone] | | | | | | | | +--------+---------+ + + + | 04/30/ | Office | Sleep Medicine | Jacky Calderon PA | | | 2020 | Visit | | [address] | | | | | | [place] | | | | | | [address] | | | | | | | | +--------+---------+ + + + documented as of this encounter Visit Diagnoses Not on filedocumented in this encounter"
--- OUTSIDE RECORDS SUMMARY | ~2020-03-24 | XMS | Encounter Summary ---
Demographics + + + | Address | [address] | | | [place] [address] | + + + | Home Phone [...] Team Providers + +------+ + | Care Carbonating Stone Cleaner Name | Role | Phone | [...] [address] | | | | | | [place], [place] | | | | | | [address] | | | +--------+ + + + [...]
--- OUTSIDE RECORDS SUMMARY | ~2020-03-24 | XMS | Encounter Summary ---
Demographics + + + | Address | [address] | | | [place] [address] | + + + | Home Phone [...] | Organization | [facility] | | | and [place] | + + + | Address | Unknown | + + + | Phone | Unavailable | + + + Support + + + + + | Name | Relationship | Address | Phone | + + + + + | Projects Horizon | ECON | [phone] | | | | | Unknown | | + + + + + Care Team Providers + +------+ + | Care Senior Net Web Developer Name | Role | [...] | | MED CTR LABORATORY | Zari Firer Boiler | use | | | | [address] | | | | | | [place] | | | | | | [address] | | | | | | [phone] | | | +--------+ + + + [...] | | | | | [place] [address] | | | | | | [phone] | | | | | | | | +--------+---------+ + + + | 04/30/ | Office | Sleep Medicine | Jacky Calderon PA | | | 2020 | Visit | | [address] | | | | | | [place] | | | | | | [address] | | | | | | | [...] | | MEDICAL | | | | mL/min/1.42g8Debq than | | CENTER - | | [...] | 9.6 | 8.3 - 10.5 | [facility] | | | | | [...] [address] | [place] | [phone] | | [facility] | | [address] | | | - LABORATORY | | [...] [address] | [place] | [phone] | | [facility] | | [address] | | | - LABORATORY | | | | + + + + + documented in this encounter Visit Diagnoses + + | Diagnosis | + + | High risk medication use Encounter for long-term (current) use of other medications | + + documented in this encounter"
--- OUTSIDE RECORDS SUMMARY | ~2020-03-24 | XMS | Encounter Summary ---
Demographics + + + | Address | [address] | | | [place] [address] | + + + | Home Phone [...] | Organization | [facility] | | | and [place] | + + + | Address | Unknown | + + + | Phone | Unavailable | + + + Support + + + + + | Name | Relationship | Address | Phone | + + + + + | Projects Horizon | ECON | [id number] | | | | | Unknown | | + + + + + Care Team Providers + +------+ + | Care Ice Cream Server Name | Role | Phone | + [...] MD | oximetry) | | | | [place], | | | | | | [place] [address] | | | | | | [phone] | | | +--------+ + + + [...] | | | | | [place] [address] | | | | | | [phone] | | | | | | | | +--------+---------+ + + + | 04/30/ | Office | Sleep Medicine | Jacky Calderon PA | | | 2019 | Visit | | [address] | | | | | | [place] | | | | | | [address] | | | | | | | [...]
--- OUTSIDE RECORDS SUMMARY | ~2020-03-24 | XMS | Encounter Summary ---
Demographics + + + | Address | [address] | | | [place] [address] | + + + | Home Phone [...] + + | Organization | [facility] | | | and [place] | + + + | Address | Unknown | + + + | Phone | Unavailable | + + + Support + + + + + | Name | Relationship | Address | Phone | + + + + + | Projects Horizon | ECON | [id number] | | | | | Unknown | | + + + + + Care Team Providers + +------+ + | Care Molder Sweep Name | Role | Phone | + [...] | | CENTER [address] | [facility] | | | | | [address] [place], [place] | [place] [address] | | | | | [address] | [phone] | | | | | [phone] | | | +--------+ + + + [...] | | | | | [place] [address] | | | | | | [phone] | | | | | | | | +--------+---------+ + + + | 04/30/ | Office | Sleep Medicine | Jacky Calderon PA | | | 2020 | Visit | | [address] | | | | | | [place] | | | | | | [phone] | | | | | | | | +--------+---------+ + + + documented as of this encounter Visit Diagnoses Not on filedocumented in this encounter"
--- OUTSIDE RECORDS SUMMARY | ~2020-03-24 | XMS | Encounter Summary ---
Demographics + + + | Address | [address] | | | [place] [address] | + + + | Home Phone [...] | [facility] | | | and [place] | + + + | Address | Unknown | + + + | Phone | Unavailable | + + + Support + + + + + | Name | Relationship | Address | Phone | + + + + + | Projects Horizon | ECON | [id number] | | | | | Unknown | | + + + + + Care Team Providers + +------+ + | Care Health Practice Manager Name | Role | Phone | + +------+ + | Gela Trimble NP | PCP | | + +------+ + Encounter Details +--------+ + + + + | Date | Type | Department | Care Team | Description | +--------+ + + + + | 12/17/ | [facility] | [facility] | Fatou, | | | 2013 | Encounter | MED CTR GENERIC OP | Vera Farrar MD | | | | | CONV DEPT [address] | | | | | | [place], | | | | | | [place] [address] | | | | | | [phone] | | | +--------+ + + + [...] + + + +---------+ + + | [place] Starch POWD | by Does not apply [...] + + + +---------+ + + | [place]-3 Fatty | Take by mouth. | | [...] | | | | | [place] [address] | | | | | | [phone] | | | | | | | | +--------+---------+ + + + | 04/30/ | Office | Sleep Medicine | Jacky Calderon PA | | | 2020 | Visit | | [address] | | | | | | [place] | | | | | | [address] | | | | | | | | +--------+---------+ + + + documented as of this encounter Visit Diagnoses Not on filedocumented in this encounter"
--- OUTSIDE RECORDS SUMMARY | ~2020-03-24 | XMS | Encounter Summary ---
Demographics + + + | Address | [address] | | | [place] [address] | + + + | Home Phone | | + + + | Preferred Language | Unknown | + + + | Marital Status | Single | + + + | Methodist Affiliation | NRP | + + + | Race | White | + + + | Ethnic Group | Not or | + + + Author + + + | Author | [facility] | + + + | Organization | [facility] | + + + | Address | Unknown | + + + | Phone | Unavailable | + + + Support + + +---------+ + | Name | Relationship | Address | Phone | + + +---------+ + | Lidia Thibodeaux | ECON | Unknown | | + + +---------+ + Care Team Providers + +------+ + | Care Personalization Specialist Name | Role | Phone | [...] | | | Medicine at | [facility], | | | | | [facility] | [place] [address] | | | | | [address] | [phone] | | | | | [facility] | | | | | | Pavilion, 3rd Floor | | | | | | [place], [place] | | | | | | [address] | | | | | | [phone] | | | +--------+ + + + [...]
--- OUTSIDE RECORDS SUMMARY | ~2020-03-24 | XMS | Encounter Summary ---
Demographics + + + | Address | [address] | | | [place] [address] | + + + | Home Phone [...] + + | Organization | [facility] | | | and [place] | + + + | Address | Unknown | + + + | Phone | Unavailable | + + + Support + + + + + | Name | Relationship | Address | Phone | + + + + + | Projects Horizon | ECON | [phone] | | | | | Unknown | | + + + + + Care Team Providers + +------+ + | Care Cuff Setter Name | Role | Phone | + +------+ + PCP | Unavailable | + +------+ + Encounter Details +--------+ + + + + | Date | Type | Department | Care Team | Description | +--------+ + + + + | 04/11/ | [facility] | [place] | Edwar Taveras | | | 2011 | Encounter | HOSPITAL EMERGENCY | MD [address] | | | | | CENTER [address] | [facility] | | | | | [place] | [place] [address] | | | | | [address] | [phone] | | | | | [phone] | | | +--------+ + + + [...] | | | | | [place] [address] | | | | | | [phone] | | | | | | | | +--------+---------+ + + + | 04/30/ | Office | Sleep Medicine | Jacky Calderon PA | | | 2020 | Visit | | [address] | | | | | | [place] | | | | | | [address] | | | | | | | | +--------+---------+ + + + documented as of this encounter Visit Diagnoses Not on filedocumented in this encounter"
--- OUTSIDE RECORDS SUMMARY | ~2020-03-24 | XMS | Encounter Summary ---
Demographics + + + | Address | [address] | | | [place] [address] | + + + | Home Phone [...] Organization | [facility] | | | and [place] | + + + | Address | Unknown | + + + | Phone | Unavailable | + + + Support + + + + + | Name | Relationship | Address | Phone | + + + + + | Projects Horizon | ECON | [phone] | | | | | Unknown | | + + + + + Care Team Providers + +------+ + | Care Rating Officer Name | Role | Phone | + +------+ + | Shnaice Huang MD | PCP | | + [...] | 2015 | | GASTROENTEROLOGY | [facility] [address] | | | | | [address] [place] | [place], [place] [address] | | | | | [address] [place], [place] | [place], [place] | | | | | [address] | [address] | | | | | [phone] | | | +--------+--------+ + + + [...] | | | | | [place] [address] | | | | | | [phone] | | | | | | | [...]
--- OUTSIDE RECORDS SUMMARY | ~2020-03-24 | XMS | Encounter Summary ---
Demographics + + + | Address | [address] | | | [place] [address] | + + + | Home Phone [...] | Organization | [facility] | | | and [place] | + + + | Address | Unknown | + + + | Phone | Unavailable | + + + Support + + + + + | Name | Relationship | Address | Phone | + + + + + | Projects Horizon | ECON | [phone] | | | | | Unknown | | + + + + + Care Team Providers + +------+ + | Care Clay Artisan Name | Role | Phone | + +------+ + | Gela Trimble PROGRAM SUPPORT SPECIALIST | PCP | | + +------+ [...] | Primary | [place], | [address] | | | | | pulmonary | Vera [place], | [place], | | | | | hypertension | MD [address] | [place] | | | | | (HCC) | [address] | [address] | | | | | Procedures | [place], | Phone: | | | | | ECHO | [place] [address] | [phone] | | | | | Complete | | Fax: | | | | | APPT | | [phone] | | | | | 03/18/14. | [...] | Primary | [place], | [address] | | | | | pulmonary | Vera B, | [place], | | | | | hypertension | MD [address] | [place] | | | | | ([facility]) | [address] | [address] | | | | | Procedures | [place], | Phone: | | | | | ECHO | [place] [address] | [phone] | | | | | Complete | | Fax: | | | | | APPT | | [phone] | | | | | 03/18/14. | | | | | | | DEFERRED T0 | | | | | | | 03/01/14 | | | +--------+--------+ + + + + Encounter Details +--------+ + + + + | Date | Type | Department | Care Team | Description | +--------+ + + + + | 03/12/ | Hospital | [facility] | [place], | Primary pulmonary | | 2013 | Encounter | MED CTR ECHO [address] | Vera Farrar MD | hypertension | | | | [address] | [place], | | | | | [place] [address] | Technologist | | | | | [phone] | | | +--------+ + + + [...] + + + +---------+ + + | [place] Starch POWD | by Does not apply [...] + + + +---------+ + + | [place]-3 Fatty | Take by mouth. | | [...] 08/06/20 | | | Therapy Supplies | [facility]'s office | | | 13 | [...] | | | | | [place] [address] | | | | | | [phone] | | | | | | | | +--------+---------+ + + + | 04/30/ | Office | Sleep Medicine | Jacky Calderon PA | | | 2020 | Visit | | [address] | | | | | | [place] | | | | | | [address] | | | | | | | [...] Performed At | + + + | [facility] ECHOCARDIOGRAM REPORT | PATERSON | | STUDY DATE: 03/12/2014 PATIENT NAME: Margarita Rowley : | [facility] | | 1965 PCP: Gela Trimble [facility] | | HISTORY/DIAGNOSIS: PULM HTN A [...] PhD FACC 03/12/2014 8:38 | | | Test Administrator: Hung Caro, TIRSO, RVT, RDMS | | + + + + + | Procedure Note | + + | Roberto Salguero MD - 03/12/2014 6:05 PM [facility] | | CENTERECHOCARDIOGRAM REPORTSTUDY DATE: 03/12/2014PATIENT NAME: Margarita MooreB: | | 1965MRN: [id number]: Gela DayINICAL HISTORY/DIAGNOSIS: PULM HTNA | | [...] | mmHgLA volume: 34 mLLA index: 18 mL/y8Jpszwp Inflow DT: 290 msIVRT: 117 msValsalva: | | YES, TO NO EFFECTPWDTI S wave: 12.0 cm/sPWDTI E wave: 15.5 cm/sPWDTI A wave: 24.1 | | cm/sE/A Ratio: 0.643E/E Ratio: Signed by: Artie Salguero MD PhD FACC 03/12/2014 | | 8:38 Test Administrator: Hung Caro, RDCS, RVT, RDMS | |Mitral [...] 03/12/2014 8:38 | | | | | |Test Administrator: Hung Caro, RDCS, RVT, RDMS | + + + + + + + | Performing | Address | City/State/Zipcode | Phone Number | | Organization | | | | + + + + + | [facility] | [address] | [place] | [phone] | | [facility] | | [address] | | | - IMAGING | | | | + + + + + documented in this encounter Visit Diagnoses + + | Diagnosis | + + | Primary pulmonary hypertension | + + documented in this encounter"
--- OUTSIDE RECORDS SUMMARY | ~2020-03-24 | XMS | Encounter Summary ---
Demographics + + + | Address | [address] | | | [place] [address] | + + + | Home Phone [...] Organization | [facility] | | | and Abramana | + + + | Address | Unknown | + + + | Phone | Unavailable | + + + Support + + + + + | Name | Relationship | Address | Phone | + + + + + | [employer] | ECON | [id number] | | | | | Unknown | | + + + + + Care Team Providers + +------+ + | Care Loan Servicing Officer Name | Role | Phone | [...] Farrar MD | | | | | [place], | | | | | | [place] [address] | | | | | | [phone] | | | +--------+--------+ + + + [...] | | | | | [place] [address] | | | | | | [phone] | | | | | | | | +--------+---------+ + + + | 04/30/ | Office | Sleep Medicine | Jacky Calderon PA | | | 2019 | Visit | | [address] | | | | | | [place] | | | | | | [address] | | | | | | | [...]
--- OUTSIDE RECORDS SUMMARY | ~2020-03-24 | XMS | Encounter Summary ---
Demographics + + + | Address | [address] | | | [place] [address] | + + + | Home Phone [...] [facility] | | | and Abramana | + + + | Organization | [facility] | | | and Abramana | + + + | Address | Unknown | + + + | Phone | Unavailable | + + + Support + + + + + | Name | Relationship | Address | Phone | + + + + + | [employer] | ECON | [id number] | | | | | Unknown | | + + + + + Care Team Providers + +------+ + | Care Taste Tester Name | Role | Phone | [...] | | | | ABDIRASH[place] BROTHERS | [place], [place] | | | | | [place] | [address] | | | | | [address] | [phone] | | | | | [phone] | | | +--------+ + + + [...] | | | | | [place] [address] | | | | | | [phone] | | | | | | | | +--------+---------+ + + + | 04/30/ | Office | Sleep Medicine | Jacky Calderon PA | | | 2020 | Visit | | [address] | | | | | | [place] | | | | | | [id number] | | | | | | | | +--------+---------+ + + + documented as of this encounter Visit Diagnoses Not on filedocumented in this encounter"
--- OUTSIDE RECORDS SUMMARY | ~2020-03-24 | XMS | Encounter Summary ---
Demographics + + + | Address | [address] | | | [place] [address] | + + + | Home Phone [...] | Organization | [facility] | | | and Abram[place] | + + + | Address | Unknown | + + + | Phone | Unavailable | + + + Support + + + + + | Name | Relationship | Address | Phone | + + + + + | [employer] | ECON | [id number] | | | | | Unknown | | + + + + + Care Team Providers + +------+ + | Care Clam Picker Name | Role | Phone | [...] | | | Pulmonology | airway | FLY RAIL OPERATOR [address] | MD | | | | | obstruction, | IRMA | | | | | | not | [address] | | | | | | elsewhere | [place], | | | | | | classified | [place] [address] | | | | | | Obstructive | Phone: | | | | | | sleep apnea | [phone] | | | | | | (adult) | Fax: | | | | | | (pediatric) | [phone] | | | | | | Procedures [...] MD | hypertension | | | | [place], | | (Primary Dx); COPD | | | | [place] [address] | | (chronic obstructive | | | | [phone] | | pulmonary disease); | | | [...] appoin tment to see Dr. Rivera in [place] at [facility]. I will get updated labs from [facility] and if we need to add anything, I will send orders to [facility]. Okay to liberalize fluid intake to [...] goes. You can find these inexpensively at [facility]. Turn the humidity up on your CPAP to 5. Ask the [facility] [employer] for a humidifier for the oxygen concentrator if you don't have one. [place] nasal saline spray in your nose several [...] is [facility] on [facility]. She Is using no oxygen at [...] Date COPD (chronic obstructive pulmonary disease) ([facility]) moderate, FEV1 1.40 (59%) Pulmonary hypertension ([facility]) severe, class 1, class 2, class 3 Bipolar disorder ([facility]) PTSD (post-traumatic stress disorder) Osteoarthritis Obstructive sleep apnea AHI 64.2 Vitamin D deficiency GERD (gastroesophageal reflux disease) Hypothyroidism Seizure disorder ([facility]) Developmental delay Hypoxemia ([facility]) on 2L at rest, 4L with exertion Female stress incontinence Pyelonephritis Hypertension Impulse control disorder Hyperlipidemia Obesity Alcohol abuse Cocaine abuse Past Surgical History Past Surgical History Procedure Laterality Date Mouth surgery 2 teeth removed Cardiac catherization Social History: History Social History Marital Status: Single Spouse Name: N/A Number of Children: N/A Years of Education: N/A Occupational History Disabled. [employer] Social History Main Topics Smoking status: Former Smoker -- 1.00 packs/day for 20 years Types: Cigarettes Quit date: 12/10/2014 Smokeless tobacco: None Comment: restarted in August 2014, quit again 12/10/14 Alcohol Use: Yes Comment: history of abuse Drug Use: Yes Special: Cocaine Comment: history of cocaine use Sexual Activity: None Other Topics Concern None Social History Narrative Lives at [place]. Allergies: Allergies Allergen Reactions Erythromycin Metronidazole Penicillins [...] TABS Take 2,000 Units by mouth Daily. Hannah Starch POWD by Does not apply route [...] mg onto the skin every 24 hours. Harris-3 Fatty Acids (SEA-OMEGA 30) 1200 MG CAPS [...] exertion only during the daytime. [facility] are not having issues with low saturations. 6. Sleep related hypoxemia - On oxygen 5L bled in to her BiPAP machine. Plan 1. Follow up appointment to see Dr. Rivera in [place] at [facility]. 2. I will get updated labs from [facility] and if we need to add anything, I will send orders to [facility]. 3. Okay to liberalize fluid intake [...] the BiPAP to 5. 7. Ask the [facility] [employer] for a humidifier for the oxygen concentrator if they don't h ave one. 8. [place] nasal saline spray in her nose several [...] made to ensure accuracy; however, inadvertent computerized gallery assistant errors may be pre sent. documented [...] | | | | | [place] [address] | | | | | | [phone] | | | | | | | | +--------+---------+ + + + | 04/30/ | Office | Sleep Medicine | Jacky Calderon PA | | | 2019 | Visit | | [address] | | | | | | [place] | | | | | | [address] | | | | | | | [...]
--- OUTSIDE RECORDS SUMMARY | ~2020-03-24 | XMS | Encounter Summary ---
Demographics + + + | Address | [address] | | | [place] [address] | + + + | Home Phone [...] Organization | [facility] | | | and [place]am[place] | + + + | Address | Unknown | + + + | Phone | Unavailable | + + + Support + + + + + | Name | Relationship | Address | Phone | + + + + + | [employer] | ECON | [id number] | | | | | Unknown | | + + + + + Care Team Providers + +------+ + | Care Tile Trimmer Name | Role | Phone | [...] | | | Pulmonology | airway | CHILD WELFARE ASSISTANT [address] | MD | | | | | obstruction, | | | | | | | not | [address] | | | | | | elsewhere | [place], | | | | | | classified | [place] [address] | | | | | | Obstructive | Phone: | | | | | | sleep apnea | [phone] | | | | | | (adult) | Fax: | | | | | | (pediatric) | [phone] | | | | | | Procedures [...] MD | hypertension | | | | [place], | | (Primary Dx); [place] | | | | [place] [address] | | (chronic obstructive | | | | [phone] | | pulmonary disease); | | | [...] Years of Education: N/A Occupational History Disabled. [employer] Social History Main Topics Smoking status: Former Smoker -- 1.0 packs/day for 20 years Types: Cigarettes Quit date: 05/14/2013 Smokeless tobacco: None Alcohol Use: Yes Comment: history of abuse Drug Use: Yes Special: Cocaine Comment: history of cocaine use Sexually Active: None Other Topics Concern None Social History Narrative Lives at [employer]. Allergies: Allergies Allergen Reactions Erythromycin Metronidazole [...] TABS Take 2,000 Units by mouth Daily. [place] Starch POWD by Does not apply route [...] tablet Take 15 mg by mouth Daily. [place]-3 Fatty Acids (SEA-OMEGA 30) 1200 MG CAPS [...] made to ensure accuracy; however, inadvertent computerized restaurant shift leader errors may be pre sent. documented in [...] | | | | | [place] [address] | | | | | | [phone] | | | | | | | | +--------+---------+ + + + | 04/30/ | Office | Sleep Medicine | Jacky Calderon PA | | | 2019 | Visit | | [address] | | | | | | [place] | | | | | | [phone] | | | | | | | [...]
--- OUTSIDE RECORDS SUMMARY | ~2020-03-24 | XMS | Encounter Summary ---
Demographics + + + | Address | [address] | | | [place] [address] | + + + | Home Phone [...] | Organization | [facility] | | | and Abram[place] | + + + | Address | Unknown | + + + | Phone | Unavailable | + + + Support + + + + + | Name | Relationship | Address | Phone | + + + + + | [employer] | ECON | [id number] | | | | | Unknown | | + + + + + Care Team Providers + +------+ + | Care Rural Health Consultant Name | Role | Phone | [...] | | | | | obstructive | [address] | [address] | | | | | pulmonary | [address] | [place], [place] | | | | | disease, | [place], | [address] | | | | | unspecified | [place] [address] | Phone: | | | | | (HCC) | Phone: | [phone] | | | | | Procedures | [phone] | Fax: | | | | | F/U APPT DR | Fax: | [phone] | | | | | SCOUT | [phone] | | | | | | JERSON | | | | | | | 02/21/18 | | | +--------+--------+ + + + + Encounter Details +--------+---------+ + + + | Date | Type | Department | Care Team | Description | +--------+---------+ + + + | 02/21/ | Office | [facility] | Scout Arthur, | Pulmonary | | 2018 | Visit | PULMONARY [address] | [address] | hypertension, | | | | [place], | [place] [address] | unspecified (HCC) | | | | [place] [address] | [phone] | (Primary Dx) | | | | [phone] | | | +--------+---------+ + + + [...] had been diagnosed prior to that at [facility] in [place] by Dr. Lashae Rivera whose excellent notes [...] She is not taking spironolactone. See the [facility] ed section for medications. She had [...] from in-home medical. We spent 25 minutes [id number], at least half in counseling. Word processing [...] [address]ILA | | | | | | [place] [address] | | | | | | [phone] | | | | | | | | +--------+---------+ + + + | 04/30/ | Office | Sleep Medicine | Jacky Calderon PA | | | 2019 | Visit | | [address] | | | | | | [place] | | | | | | [address] | | | | | | | | +--------+---------+ + + + documented as of this encounter Visit Diagnoses + + | Diagnosis | + + | Pulmonary hypertension, unspecified (HCC) - Primary | + + documented in this encounter
--- OUTSIDE RECORDS SUMMARY | ~2020-03-24 | XMS | Encounter Summary ---
Demographics + + + | Address | [address] | | | [place] [address] | + + + | Home Phone [...] Organization | [facility] | | | and Abram[place] | + + + | Address | Unknown | + + + | Phone | Unavailable | + + + Support + + + + + | Name | Relationship | Address | Phone | + + + + + | [employer] | ECON | [id number] | | | | | Unknown | | + + + + + Care Team Providers + +------+ + | Care Hothouse Worker Name | Role | Phone | [...] | hypertension (HCC) | | | | [address] | [place] [address] | (Primary Dx) | | | | [place] [address] | [phone] | | | | | [phone] | | | +--------+ + + + [...] | | | | | [place] [address] | | | | | | [phone] | | | | | | | | +--------+---------+ + + + | 07/01/ | Office | Sleep Medicine | Jacky Calderon PA | | | 2020 | Visit | | [address] | | | | | | [place] | | | | | | [address] | | | | | | | [...]
--- OUTSIDE RECORDS SUMMARY | ~2020-03-24 | XMS | Encounter Summary ---
Demographics + + + | Address | [address] | | | [place] [address] | + + + | Home Phone [...] | Organization | [facility] | | | and [place]am[place] | + + + | Address | Unknown | + + + | Phone | Unavailable | + + + Support + + + + + | Name | Relationship | Address | Phone | + + + + + | [employer] | ECON | [phone] | | | | | Unknown | [...] MD | obstructive | | | | [place], | | pulmonary disease) | | | | [place] [address] | | (HCC) (Primary Dx); | | | | [phone] | | Pulmonary | | | | [...] | | | | | [place] [address] | | | | | | [phone] | | | | | | | | +--------+---------+ + + + | 04/30/ | Office | Sleep Medicine | Jacky Calderon PA | | | 2019 | Visit | | [address] | | | | | | [place] | | | | | | [address] | | | | | | | [...]
--- OUTSIDE RECORDS SUMMARY | ~2020-03-24 | XMS | Encounter Summary ---
Demographics + + + | Address | [address] | | | [place] [address] | + + + | Home Phone [...] | Organization | [facility] | | | and [place]am[place] | + + + | Address | Unknown | + + + | Phone | Unavailable | + + + Support + + + + + | Name | Relationship | Address | Phone | + + + + + | [employer] | ECON | [id number] | | | | | Unknown | | + + + + + Care Team Providers + +------+ + | Care Locomotive Switch Operator Name | Role | Phone | + +------+ + | Gela Trimble NP | PCP | | + +------+ + Encounter Details +--------+ + + + + | Date | Type | Department | Care Team | Description | +--------+ + + + + | 09/17/ | Hospital | [facility] | [place], | Primary pulmonary | | 2012 | Encounter | [facility] | Vera Farrar MD | hypertension (HCC) | | | | [address] | | | | | | [place] | | | | | | [address] | | | | | | [phone] | | | +--------+ + + + [...] + + + +---------+ + + | King[place]-3 Fatty | Take by mouth. | | [...] | | | | | [place] [address] | | | | | | [phone] | | | | | | | | +--------+---------+ + + + | 04/30/ | Office | Sleep Medicine | Jacky Calderon PA | | | 2019 | Visit | | [address] | | | | | | [place] | | | | | | [address] | | | | | | | [...] | performed on the Kathryn | | [employer] [place] | | | | [employer] | | MEDICAL | | | [...] + | [facility] | [address] | [place], [place] | [phone] | | [facility] | | [address] | | | - LABORATORY | | | | + + + + + | [facility] | [address] | [place], [place] | | | [facility] | | [address], [facility] | | | - LABORATORY | | | | + + + + + documented in this encounter Visit Diagnoses + + | Diagnosis | + + | Primary pulmonary hypertension (HCC) Primary pulmonary hypertension | + + documented in this encounter"
--- OUTSIDE RECORDS SUMMARY | ~2020-03-24 | XMS | Encounter Summary ---
Demographics + + + | Address | [address] | | | [place] [address] | + + + | Home Phone [...] | Organization | [facility] | | | and [place]am[place] | + + + | Address | Unknown | + + + | Phone | Unavailable | + + + Support + + + + + | Name | Relationship | Address | Phone | + + + + + | [employer] | ECON | [id number] | | | | | Unknown | | + + + + + Care Team Providers + +------+ + | Care Lamination Inspector Name | Role | Phone | [...] [place], [place] | | | | | [address] | [address] | | | | | [phone] | [phone] | | | | | | | [...] | | | | | [place] [address] | | | | | | [phone] | | | | | | | [...]
--- OUTSIDE RECORDS SUMMARY | ~2020-03-24 | XMS | Encounter Summary ---
Demographics + + + | Address | [address] | | | [place] [address] | + + + | Home Phone [...] Team Providers + +------+ + | Care Waitangi Tribunal Member Name | Role | Phone | + +------+ + | Gela Trimble COMPUTER SOFTWARE ENGINEER | PCP | | + +------+ + Encounter Details +--------+ + + + + | Date | Type | Department | Care Team | Description | +--------+ + + + + | 05/17/ | Middle School Spanish Teacher | Pulmonary & | Alexander Hays MD | Pulmonary | | 2012 | | Critical Care | [address] | hypertension (HCC) | | | | Medicine at | [facility], | (Primary Dx) | | | | [facility] | [place] [address] | | | | | [address] | [phone] | | | | | [facility] | | | | | | Pavilion, 3rd Floor | | | | | | [place], [place] | | | | | | [address] | | | | | | [phone] | | | +--------+ + + + [...]
--- OUTSIDE RECORDS SUMMARY | ~2020-03-24 | XMS | Encounter Summary ---
Demographics + + + | Address | [address] | | | [place] [address] | + + + | Home Phone [...] | Organization | [facility] | | | and [place]am[place] | + + + | Address | Unknown | + + + | Phone | Unavailable | + + + Support + + + + + | Name | Relationship | Address | Phone | + + + + + | [employer] | ECON | [id number] | | | | | Unknown | | + + + + + Care Team Providers + +------+ + | Care Uke Driver Name | Role | Phone | [...] | [address] [place] | [place], [place] [address] | | | | | [address] [place], [place] | [place], [place] | | | | | [address] | [address] | | | | | [phone] | | | +--------+ + + + [...] | | | | | [place] [address] | | | | | | [phone] | | | | | | | [...]
--- OUTSIDE RECORDS SUMMARY | ~2020-03-24 | XMS | Encounter Summary ---
Demographics + + + | Address | [address] | | | [place] [address] | + + + | Home Phone [...] | Organization | [facility] | | | and [place]am[place] | + + + | Address | Unknown | + + + | Phone | Unavailable | + + + Support + + + + + | Name | Relationship | Address | Phone | + + + + + | [employer] | ECON | [id number] | | | | | Unknown | | + + + + + Care Team Providers + +------+ + | Care Sheet Metal Worker Apprentice Name | Role | Phone | [...] | [address] [place], [place] | [place] [address] | | | | | [address] | [phone] | | | | | [phone] | | | +--------+ + + + [...] | | | | | [place] [address] | | | | | | [phone] | | | | | | | | +--------+---------+ + + + | 04/30/ | Office | Sleep Medicine | Jacky Calderon PA | | | 2020 | Visit | | [address] | | | | | | [place] | | | | | | [phone] | | | | | | | | +--------+---------+ + + + documented as of this encounter Visit Diagnoses Not on filedocumented in this encounter"
--- OUTSIDE RECORDS SUMMARY | ~2020-03-24 | XMS | Encounter Summary ---
Demographics + + + | Address | [address] | | | [place] [address] | + + + | Home Phone [...] + + + | Organization | [facility] | | | and Abram[place] | + + + | Address | Unknown | + + + | Phone | Unavailable | + + + Support + + + + + | Name | Relationship | Address | Phone | + + + + + | [employer] | ECON | [id number] | | | | | Unknown | | + + + + + Care Team Providers + +------+ + | Care Vehicle Assembler Name | Role | Phone | [...] + + | 10/16/ | Office | [facility] | Jacky Calderon PA | Primary central | | 2012 | Visit | SLEEP DISORDER [address] | [address] | sleep apnea (Primary | | | | [address] | [place], [place] | Dx) | | | | [place] [address] | [address] | | | | | [phone] | | | +--------+---------+ + + + [...] was: 09/25/2013 date of polysomnography: 03/13/2013 at [facility] AHI: 64.2 O2%: n/a Machine type: Respironics BiPAP Auto with ResMed Quattro FX full face mask obtained from: [facility] pressure: 18/14 cm Nights using BiPAP: 2021 [...] prescription sent to [facility] in [place] by Dr. Lainez had the correct pressures. [facility] in [facility] will make the adjustment to Jessie's [...] I talked with [facility] in [facility] having her pressures corrected to IPAP 19 cm, EPAP 5 cm and a backup of 8 bpm with 2 L/mi n O2 bled into the system. I will follow up again in 1 month, sooner prn. Fifteen minutes were spent jppy-[id number]-[id number], wi th the majority of time spent in counseling. Jacky Calderon PA-C cc: Gela Trimble, ELECTORAL OFFICER-Xiang Lainez MD documented in this enco unter [...] | | | | | [place] [address] | | | | | | [phone] | | | | | | | | +--------+---------+ + + + | 04/30/ | Office | Sleep Medicine | Jacky Calderon PA | | 2019 | Visit | | [address] | | | | | | [place] | | | | | | [address] | | | | | | | | +--------+---------+ + + + documented as of this encounter Visit Diagnoses + + | Diagnosis | + + | Primary central sleep apnea - Primary | + + documented in this encounter"
--- OUTSIDE RECORDS SUMMARY | ~2020-03-24 | XMS | Encounter Summary ---
Demographics + + + | Address | [address] | | | [place] [address] | + + + | Home Phone [...] + | Organization | [facility] | | | and Abram[place] | + + + | Address | Unknown | + + + | Phone | Unavailable | + + + Support + + + + + | Name | Relationship | Address | Phone | + + + + + | [employer] | ECON | [id number] | | | | | Unknown | | + + + + + Care Team Providers + +------+ + | Care Flour Blender Helper Name | Role | Phone | [...] | | | | [place] | [place], [place] | | | | | [place] | [address] | | | | | [address] | [phone] | | | | | [phone] | | | +--------+ + + + [...] | | | | | [place] [address] | | | | | | [phone] | | | | | | | | +--------+---------+ + + + | 04/30/ | Office | Sleep Medicine | Jacky Calderon PA | | | 2020 | Visit | | [address] | | | | | | [place] | | | | | | [address] | | | | | | | | +--------+---------+ + + + documented as of this encounter Visit Diagnoses Not on filedocumented in this encounter"
[2020-03-24] MEDS ORDERED: ASCORBIC ACID500 M3 PO (20:52)
[2020-03-24] MEDS ORDERED: KEFLEX500 MG PO (22:51)
== END 2020-03-24 23:34 | disposition home or self-care (01) ==
LOC: ED 20:30
DX: R04.0 Epistaxis (principal); F31.9 Bipolar disorder, unspecified; E03.9 Hypothyroidism, unspecified; I11.0 Hypertensive heart disease with heart failure; I50.9 Heart failure, unspecified; J44.9 Chronic obstructive pulmonary disease, unspecified; Z87.891 Personal history of nicotine dependence; Z88.0 Allergy status to penicillin; Z88.1 Allergy status to other antibiotic agents; Z88.2 Allergy status to sulfonamides; Z79.899 Other long term (current) drug therapy
CPT/HCPCS: 30903; 99283-25; A9270

== ENCOUNTER 2020-04-13 17:48 | Emergency (ER) | payer OTHER ==
[~2020-04-13] VITALS: Ht 157.5 cm; Wt 93.5 kg
[~2020-04-13 17:48] MED LIST changes: +ASCORBIC ACID500 M3 PO; +KEFLEX500 MG PO
[2020-04-13] MEDS ORDERED: RISPERIDONE M-TA1 MG PO ×2 (18:04)
[2020-04-13] MEDS ORDERED: SYMBICORT 16010.2 GM INH (18:05)
[2020-04-13] MEDS ORDERED: PREDNISONE20 MG PO (18:53)
--- NOTE | 2020-04-14 14:27 | EKG ---
[facility] [address] [facility] [place], [place] [address] Signed Normal sinus rhythm Nonspecific intraventricular block Abnormal ECG When compared with ECG of 24-FEB-2020 16:46, Questionable change in QRS duration Confirmed by ASA SALAS DO ([id number]) on 04/14/2020 2:27:01 PM Electronically Signed By: ASA SALAS DO 04/14/20 1427 PATIENT NAME: KEO BARRAZA VIK Electrocardiogram DATE OF : 61 PHYSICIAN: ASA SALAS DO REPORT #: [id number] REPORT IS CONFIDENTIAL AND NOT TO BE RELEASED WITHOUT AUTHORIZATION
== END 2020-04-13 19:24 | disposition home or self-care (01) ==
LOC: ED 17:48
DX: M54.12 Radiculopathy, cervical region (principal); F41.9 Anxiety disorder, unspecified; E03.9 Hypothyroidism, unspecified; J44.9 Chronic obstructive pulmonary disease, unspecified; I11.0 Hypertensive heart disease with heart failure; K21.9 Gastro-esophageal reflux disease without esophagitis; I50.9 Heart failure, unspecified; Z88.1 Allergy status to other antibiotic agents; Z88.0 Allergy status to penicillin; Z88.2 Allergy status to sulfonamides; Z88.8 Allergy status to other drugs, medicaments and biological substances; Z79.82 Long term (current) use of aspirin; Z79.899 Other long term (current) drug therapy
CPT/HCPCS: 71045; 80053; 80164; 83735; 84484; 85025; 93005; 93010; 99285-25; J1100

== ENCOUNTER 2020-05-02 17:42 | Emergency (ER) | payer OTHER ==
[~2020-05-02] VITALS: Ht 157.5 cm; Wt 93.5 kg
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
--- OUTSIDE RECORDS SUMMARY | ~2020-05-02 | XMS | Encounter Summary ---
Demographics + + + | Address | [address] | | | [place] [address] | + + + | Home Phone | | + + + | Preferred Language | Unknown | + + + | Marital Status | Single | + + + | Lutheran Affiliation | 1009 | + + + | Race | Unknown | + + + | Ethnic Group | Unknown | + + + Author + + + | Author | [facility] | | | and [place] | + + + | Organization | [facility] | | | and [place] | + + + | Address | Unknown | + + + | Phone | Unavailable | + + + Support + + + + + | Name | Relationship | Address | Phone | + + + + + | [employer] | ECON | [phone] | | | | | Unknown | | + + + + + Care Team Providers + +------+ + | Care Learning Administrator Name | Role | Phone | + +------+ + | Yuni Shrestha | PCP | | + +------+ + Encounter Details +--------+ + + + + | Date | Type | Department | Care Team | Description | +--------+ + + + + | 08/29/ | Orders Only | [facility] [place] | Tarah Nino, | Obstructive sleep | | 2015 | | PULMONARY [address] | RN | apnea | | | | [place], | | | | | | [place] [address] | | | | | | [phone] | | | +--------+ + + + [...] | | | | | [address] | | | | | | [place] [address] | | | | | | [phone] | | | | | | | | +--------+ + + + + | 07/23/ | Office | Pulmonology | Helen Astudillo | | | 2019 | Visit | | MD [address] | | | | | | [address] [place] | | | | | | [place] [address] | | | | | | [phone] | | | | | | | | +--------+ + + + + documented as of this encounter Visit Diagnoses + + | Diagnosis | + + | Obstructive sleep apnea Obstructive sleep apnea (adult) (pediatric) | + + documented in this encounter"
--- OUTSIDE RECORDS SUMMARY | ~2020-05-02 | XMS | Encounter Summary ---
Demographics + + + | Address | [address] | | | [place] [address] | + + + | Home Phone | | + + + | Preferred Language | Unknown | + + + | Marital Status | Single | + + + | Yarsani Affiliation | 1009 | + + + | Race | Unknown | + + + | Ethnic Group | Unknown | + + + Author + + + | Author | [facility] | | | and [place] | + + + | Organization | [facility] | | | and [place] | + + + | Address | Unknown | + + + | Phone | Unavailable | + + + Support + + + + + | Name | Relationship | Address | Phone | + + + + + | [employer] | ECON | [phone] | | | | | Unknown | | + + + + + Care Team Providers + +------+ + | Care Wet Wheeler Name | Role | Phone | + +------+ + | Yuni Shrestha | PCP | | + +------+ + Encounter Details +--------+ + + + + | Date | Type | Department | Care Team | Description | +--------+ + + + + | 02/01/ | [facility] | [facility] | Scout Arthur, | Lung nodule | | 2017 | Encounter | MED CTR XRAY [address] | [address] | | | | | [place] | [place] [address] | | | | | [place] [address] | [phone] | | | | | [phone] | | | +--------+ + + + [...] L into the | | 0 | 08//20 | | | | lungs continuous. 1L [...] + + + +---------+ + + | [place] [facility] | by Does not apply [...] [place] | | | | | | [place] [address] | | | | | | [phone] | | | | | | | | +--------+ + + + + | 07/23/ | Office | Pulmonology | Helen Astudillo | | | 2019 | Visit | | MD [address] | | | | | | [address] [place] | | | | | | [place], [place] [address] | | | | | | [phone] | | | | | | | [...] INFORMATION: Nodular density, solitary pulmonary nodule | LINDAE | | COMPARISON: 07/10/2015. FINDINGS: Frontal and lateral views of | [facility] | | the chest. Lungs: No focal [...] + | [facility] | [address] | [place], [place] | [phone] | | [facility] | | [address] | | | - IMAGING | | | | + + + + + documented in this encounter Visit Diagnoses + + | Diagnosis | + + | Lung nodule Solitary pulmonary nodule | + + documented in this encounter"
--- OUTSIDE RECORDS SUMMARY | ~2020-05-02 | XMS | Encounter Summary ---
Demographics + + + | Address | [address] | | | [place] [address] | + + + | Home Phone | | + + + | Preferred Language | Unknown | + + + | Marital Status | Single | + + + | Pentecostal Affiliation | 1009 | + + + | Race | Unknown | + + + | Ethnic Group | Unknown | + + + Author + + + | Author | [facility] | | | and [place] | + + + | Organization | [facility] | | | and [place] | + + + | Address | Unknown | + + + | Phone | Unavailable | + + + Support + + + + + | Name | Relationship | Address | Phone | + + + + + | [employer] | ECON | [phone] | | | | | Unknown | | + + + + + Care Team Providers + +------+ + | Care Pharmacy Technician Inpatient Name | Role | Phone | + +------+ + | Shanice Huang MD | PCP | | + +------+ + Reason for Visit + + + | Reason | Comments | + + + | CPAP Follow Up | | + + + Encounter Details +--------+---------+ + + + | Date | Type | Department | Care Team | Description | +--------+---------+ + + + | 04/30/ | Office | [facility] | Jacky Calderon PA | GLORIA treated with | | 2019 | Visit | SLEEP DISORDER [address] | [address] | BiPAP (Primary Dx) | | | | [address] [place] | [place] | | | | | [place] [address] | [address] | | | | | [phone] | | | +--------+---------+ + + + [...] +---------+ + + | Blood Pressure | 110/80 | 04/30/2020 11:29 AM | | | | | PDT | | + +---------+ + + | Pulse | 89 | 04/30/2020 11:29 AM | | | | | PDT | | + +---------+ + + | Temperature | - | - | | + +---------+ + + | Respiratory Rate | 16 | 04/30/2020 11:29 AM | | | | | PDT | | + +---------+ + + | Oxygen Saturation | 96% | 04/30/2020 11:29 AM | | | | | PDT [...] encounter Progress Notes Jacky Calderon PA - 04/30/2020 11:00 AM PDT Subjective: Patient ID: Margarita Rowley is a 54 y.o. female. HPI last office visit: 04/16/2019 date of polysomnography: 03/13/2013 at [facility] AHI: 64.2 O2%: n/a Machine type: Respironics DreamStation Auto BiPAP Mask type: ResMed Quattro FX full face mask DME: [facility] [place] pressure: 16/5 cm with backup rate of 8 bpm and O2 at 5 L/min Nights using BiPAP: 66/75 71/71 % of nights >4 hours: 86.7% 100% average usage (all nights): 7:25 8:58 average usage (nights used): 8:26 8:58 AHI: 8.4 Jessie comes in for BiPAP compliance with her caregiver. She is wearing her BiPAP and oxygen regularly for the duration of her sleep. Her BiPAP is a regular part of her sleep routine. She has done well with her replacement Respironics DreamStation but it started leaking gretta er about two months ago and had to be replaced. The new machine is working well. She does not have any questions or concerns. I have discussed the download in detail. This shows that her sleep apnea is controlled, wi th an AHI of 8.4. It also shows that her leaks are controlled. Objective: BP 110/80 | Pulse 89 | Resp 16 | SpO2 96% Assessment: Problem #1: PRIMARY CENTRAL SLEEP APNEA ([id number]) She has severe apnea. This is controlled with BiPAP and oxygen at 5 L/min. Her BiPAP usag e is going well. Plan: 1. She is to continue with BiPAP indefinitely. 2. She is to touch base with her medical supplier twice per year to ensure that her equipm ent is satisfactory. I will follow up with her in 1 year, sooner prn. Fifteen minutes were spent [id number], with the majority of time spent in counseling. Jacky Calderon PA-C Cc: Shanice Huang MD documented in this enco unter Plan of Treatment +--------+ + + + + | Date | Type | Specialty | Care Team | Description | +--------+ + + + + | 07/23/ | Appointment | Pulmonology | Helen Astudillo | | 2019 | | | MD Vikash [address] | | | | | | [address] [place] | | | | | | [place] [address] | | | | | | [phone] | | | | | | | | +--------+ + + + + | 07/23/ | Office | Pulmonology | Helen Astudillo | | | 2019 | Visit | | MD Vikash [address] | | | | | | [address] [place] | | | | | | [place] [address] | | | | | | [phone] | | | | | | | | +--------+ + + + + documented as of this encounter Visit Diagnoses + + | Diagnosis | + + | GLORIA treated with BiPAP - Primary | + + documented in this encounter"
--- OUTSIDE RECORDS SUMMARY | ~2020-05-02 | XMS | Encounter Summary ---
Demographics + + + | Address | [address] | | | [place] [address] | + + + | Home Phone | | + + + | Preferred Language | Unknown | + + + | Marital Status | Single | + + + | Orthodox Affiliation | 1009 | + + + | Race | Unknown | + + + | Ethnic Group | Unknown | + + + Author + + + | Author | [facility] | | | and [place] | + + + | Organization | [facility] | | | and [place] | + + + | Address | Unknown | + + + | Phone | Unavailable | + + + Support + + + + + | Name | Relationship | Address | Phone | + + + + + | [employer] | ECON | [phone] | | | | | Unknown | | + + + + + Care Team Providers + +------+ + | Care Intelligence Operations Name | Role | Phone | + +------+ + | Gela Trimble NP | PCP | | + +------+ + Reason for Visit +---------+--------+ + | Reason | Onset | Comments | | | Date | | +---------+--------+ + | Results | 09/16/ | walking oximetry | | | 2013 | | +---------+--------+ + Encounter Details +--------+ + + + + | Date | Type | Department | Care Team | Description | +--------+ + + + + | 09/16/ | Telephone | [facility] [place] | Offenstein, | Results (walking | | 2013 | | PULMONARY [address] | Vera Farrar MD | oximetry) | | | | [place], | | | | | | [place] [address] | | | | | | [phone] | | | +--------+ + + + [...] this encounter Miscellaneous Notes Telephone Encounter - Tarah Nino RN - 09/16/2014 3:43 PM PSTCalled and talked with Kamala at [facility]. Advised per Dr Lainez thatBeatrisrossy does not need O2 at r est but needs 4 l/m with exertion. Order sent to [facility]. documented in this encounter Plan of Treatment [...] [address] | | | | | | [place] [address] | | | | | | [phone] | | | | | | | | +--------+ + + + + | 07/23/ | Office | Pulmonology | Helen Astudillo | | | 2019 | Visit | | MD [address] | | | | | | [address] [place] | | | | | | [place] [address] | | | | | | [phone] | | | | | | | | +--------+ + + + + + + +--------+ + + | Name | Type | Priori | Associated Diagnoses | Order Schedule | | | | ty | | | + + +--------+ + + | Oxygen Therapy | Respiratory | Routin | COPD (chronic | 1 Occurrences | | | Care | e | obstructive | starting 09/16/2014 | | | | | pulmonary disease) | until 09/16/2015 | | | | | (HCC) | | + + +--------+ + + documented as of this encounter Visit Diagnoses + + | Diagnosis | + + | COPD (chronic obstructive pulmonary disease) ([facility]) - Primary Chronic airway | | obstruction, not elsewhere classified | + + documented in this encounter"
--- OUTSIDE RECORDS SUMMARY | ~2020-05-02 | XMS | Encounter Summary ---
Demographics + + + | Address | [address] | | | [place] [address] | + + + | Home Phone | | + + + | Preferred Language | Unknown | + + + | Marital Status | Single | + + + | Catholic Affiliation | NRP | + + + | Race | White | + + + | Ethnic Group | Not or | + + + Author + + + | Author | [facility] | + + + | Organization | [facility] | + + + | Address | Unknown | + + + | Phone | Unavailable | + + + Support + + +---------+ + | Name | Relationship | Address | Phone | + + +---------+ + | Lidia Thibodeaux | ECON | Unknown | | + + +---------+ + Care Team Providers + +------+ + | Care Proof Tester Name | Role | Phone | + +------+ + | Yuni Shrestha VIKAS | PCP | | + +------+ + Reason for Visit +--------+ + | Reason | Comments | +--------+ + | Lesion | Patient presents for changing mole. Pt states that the mole is on | | | the back of her neck. | +--------+ + Consultation (Routine) +--------+--------+ + + + + | Status | Reason | Specialty | Diagnoses / | Referred By | Referred To | | | | | Procedures | Contact | Contact | +--------+--------+ + + + + | Closed | | Dermatology | Diagnoses | Fady, | Riter, | | | | | Melanocytic | Yuni, STRIPER | Marivel C, | | | | | nevi, | [facility] | ,PhD 1936 | | | | | unspecified | Terence | [address] | | | | | | [facility] | [place], | | | | | | [address] | [place] [address] | | | | | | [place] | Phone: | | | | | | [place], | [phone] | | | | | | [place] [address] | Fax: | | | | | | Phone: | [phone] | | | | | | [phone] | | | | | | | Fax: | | | | | | | [phone] | | +--------+--------+ + + + + Encounter Details +--------+---------+ + + + | Date | Type | Department | Care Team | Description | +--------+---------+ + + + | 07/19/ | Office | Dermatology at | Marivel Rao, | Nevus (Primary Dx) | | 2015 | Visit | [facility] | ,PhD 1936 | | | | | Clinic [address] | [address] [place], [place] | | | | | [place], [place] | [address] | | | | | [address] | [phone] | | | | | [phone] | | | +--------+---------+ + + + [...] | + +---+---+ + + + | Comments: Has cut back from 1PPD to 2PPD over past few weeks. | + + [...] in this encounter Patient Instructions Patient Instructions AlmendarezKenyaRYAN - 07/19/2016 11:32 AM PDTSUNSCREEN APPLICATION AND UV PROTECTION ? Exposure to ultraviolet radiation is the leading cause of premature aging, and skin cance rs including melanoma. ? The [place] [employer] (AAD) recommends you wear a wide-brimmed hat, sun gla sses and sun protective clothing. If you must be in the sun, it is recommended to use a Bro ad spectrum sunscreen (blocking both UVA and UVB) with a sun protection factor (SPF) of 30+ (even on cloudy days) and reapply every two hours, or after swimming or heavy perspiration. ? Sunscreens should be applied generously and evenly. One fluid ounce (or the equivalent o f a full shot glass) is the approximate amount of sunscreen required for each person each ti me sunscreen is applied. ? Sunscreens have an expiration date and once that date is reached, they may lose effective ness and should be discarded. ? Sunscreen is also important for blocking reflected UVR (Ultraviolet Radiation). Sand, con crete, snow, water, and other surfaces reflect UVR which has the same effect to your skin as direct sunlight. THE "ABCDE" RULE AND MELANOMA DETECTION Asymmetry - compare one half of the growth to the other half to determine if the halves are equal in size and appearance. Border - If the mole's border is irregular, notched, scalloped, or indistinct, it should be checked by a doctor. Color - Variation of color (e.g., more than one color or shade) within a mole is a suspicio us finding. Diameter - Any mole that has a diameter larger than a pencil's eraser should be checked by a doctor. Evolving - If a mole is changing in size, shape, color, elevation, surface texture or becom es itchy or painful, it should be checked by a doctor. Additional sunscreen and melanoma information is available at the following websites: http://www.[facility]/xd/health/services/dermatology/for-patients/health_info.cfm - [facility] Derm atology http://www.aad.org/public/sun/smart.html - AAD Website documented in this encounter Progress Notes Marivel Rao MD,PhD - 07/19/2016 10:48 AM PDTFormatting of this note might be differen t from the original. DERMATOLOGY NEW PATIENT VISIT CHIEF COMPLAINT: Lesion PCP: VIKAS Ulrich HISTORY OF PRESENT ILLNESS: Margarita Rowley is a 50 y.o. female who presents for evaluation of Lesion She describes a mole on the back of her neck that has gotten slightly larger. Has not been tender or bleedi ng. She cannot see it. She has no known family history of skin cancer. 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 Vega skin type II. She does occasionally use sunscreens and protective clothing, an d does not examine her skin regularly. The patient's dermatology intake form was reviewed, signed, and dated. Her relevant PMH, F H, and includes: PAST MEDICAL HISTORY: No past medical history on file. PAST SURGICAL HISTORY: No past surgical history on file. FAMILY HISTORY: Family History: no melanoma SOCIAL HISTORY: Patient reports that she has been smoking Cigarettes. She has a 15 pack-year smoking hist ory. She does not have any smokeless tobacco history on file. ALLERGIES: -- Erythromycin -- Flagyl [Metronidazole] -- Penicillins -- Sulfa (Sulfonamide Antibiotics) REVIEW OF SYSTEMS: Please see HPI and PMH. In addition, she denies fever, chills, sweats, weight loss or loss of appetite, and has no further skin complaints. MEDICATIONS: Current Medication List Name Sig ACETAMINOPHEN 325 MG TABLET Take 325 mg by mouth every four hours as needed. ALBUTEROL SULFATE HFA 90 MCG/ACTUATION AEROSOL INHALER Inhale every four hours as needed. IPRATROPIUM-ALBUTEROL 18 MCG-103 MCG/ACTUATION AEROSOL INHALER Inhale 1 Puff every six hour s as needed. AMBRISENTAN 10 MG TABLET Take 10 mg by mouth once daily. ASCORBIC ACID (VITAMIN C) 500 MG TABLET Take 500 mg by mouth two times daily. BECLOMETHASONE DIPROPIONATE 80 MCG/ACTUATION AEROSOL INHALER Inhale 1 puff two times daily. BUPROPION HCL SR 200 MG TABLET,SUSTAINED-RELEASE Take 200 mg by mouth two times daily. CEPHALEXIN 250 MG CAPSULE Take 250 mg by mouth every six hours. CETIRIZINE 10 MG TABLET Take 10 mg by mouth once daily. CHOLECALCIFEROL (VITAMIN D3) 1,000 UNIT TABLET Take 2,000 Units by mouth once daily. CLINDAMYCIN 300 MG CAPSULE Take 300 mg by mouth every eight hours. CRANBERRY EXTRACT 500 MG CAPSULE Take by mouth. CYANOCOBALAMIN (VIT B-12) 1,000 MCG TABLET Take 1,000 mcg by mouth once daily. CYANOCOBALAMIN (VIT B-12) 1,000 MCG/ML INJECTION SOLUTION Inject 1,000 mcg under the skin ( SUBC) every thirty days. DIVALPROEX 500 MG TABLET,DELAYED RELEASE Take 500 mg by mouth two times daily. DOCUSATE SODIUM 50 MG CAPSULE Take 50 mg by mouth once daily. ESTRADIOL 1 MG TABLET Take 2 mg by mouth once daily. FERROUS SULFATE 325 MG (65 MG IRON) TABLET Take 325 mg by mouth two times daily. FUROSEMIDE 80 MG TABLET Take 80 mg by mouth once daily. GABAPENTIN 300 MG CAPSULE Take 600 mg by mouth three times daily. ROBAFEN 100 MG/5 ML ORAL LIQUID Take by mouth every four hours as needed. LEVOTHYROXINE 137 MCG TABLET Take 137 mcg by mouth once daily. MILK OF MAGNESIA ORAL Take by mouth. MELOXICAM 15 MG TABLET Take 15 mg by mouth once daily. NICOTINE 7 MG/24 HR DAILY TRANSDERMAL PATCH Apply 1 Patch to skin once daily. OMEGA-3 FATTY ACIDS-VITAMIN E 1,000 MG CAPSULE Take 1 Cap by mouth two times daily. OMEPRAZOLE 20 MG CAPSULE,DELAYED RELEASE Take 20 mg by mouth once daily in the morning. PAROXETINE 20 MG TABLET Take 20 mg by mouth once daily. POTASSIUM CHLORIDE 20 MEQ ORAL PACKET Take 20 mEq by mouth once daily. RISPERIDONE 4 MG TABLET Take 4 mg by mouth once daily at bedtime. SILDENAFIL 20 MG TABLET Take 1 Tab by mouth three times daily. Administer at least 4-6 hour s apart. SIMVASTATIN 20 MG TABLET Take 20 mg by mouth once daily in the evening. SODIUM CHLORIDE 0.65 % NASAL SPRAY AEROSOL Instill 2 sprays into each nostril as needed. TADALAFIL 20 MG TABLET (ANTIHYPERTENSIVE) Take 40 mg by mouth once daily. TRIAMCINOLONE ACETONIDE 0.1 % TOPICAL CREAM Apply to affected area three times daily. Appl y thin film to affected areas. PHYSICAL EXAMINATION: BP 102/60 | Pulse 56 | Ht 1.473 m (4' 10") | Wt 91.445 kg (201 lb 9.6 oz) | SpO2 97% | BMI 42.15 kg/(m^2) Well-developed, well-nourished female in no acute distress. Awake, alert and oriented. Pl easant and cooperative mood. A skin examination was performed including the scalp, face, eyelids, ears, lips, teeth, ton taty, oral mucosa, neck, chest, back, abdomen, buttocks, bilateral arms and legs, bilateral h ands and feet, and nails. Findings were within normal limits except for the following: --Back of neck: soft pink slightly pedunculated papule with a terminal hair ASSESSMENT AND PLAN: Nevus (primary encounter diagnosis) Comment: back of neck - reassuring features. Insurance unlikely to cover removal for cosmet ic reasons. Reassurance provided. Plan: -Pt reassured as to the benign nature, does not require treatment unless symptomatic or repeatedly traumatized. Like any lesion, should it not be stable in size or appearance, or become symptomatic, it should be biopsied to confirm benign nature. Pt instructed to retu rn with any change or concern RETURN VISIT: Return if symptoms worsen or fail to improve. Marivel Rao M.D. Ph.D. Assistant Finance Director Department of Dermatology [facility] ([facility] Dermatology documented in th is encounter Plan of Treatment Not on filedocumented as of this encounter Visit Diagnoses + + | Diagnosis | + + | Nevus - Primary Benign neoplasm of skin, site unspecified | + + documented in this encounter
--- OUTSIDE RECORDS SUMMARY | ~2020-05-02 | XMS | Encounter Summary ---
Demographics + + + | Address | [address] | | | [place] [address] | + + + | Home Phone | | + + + | Preferred Language | Unknown | + + + | Marital Status | Single | + + + | Restorationism Affiliation | [id number] | + + + | Race | Unknown | + + + | Ethnic Group | Unknown | + + + Author + + + | Author | [facility] | | | and [place] | + + + | Organization | [facility] | | | and [place] | + + + | Address | Unknown | + + + | Phone | Unavailable | + + + Support + + + + + | Name | Relationship | Address | Phone | + + + + + | [employer] | ECON | [id number] | | | | | Unknown | | + + + + + Care Team Providers + +------+ + | Care Oracle Financials Consultant Name | Role | Phone | + [...] | | | | | pulmonary | RESOURCE CONSERVATION SPECIALIST [address] | | | | | hypertension | [address] | [place], [place] | | | | | (HCC) | [place], | [address] | | | | | Procedures | [place] [address] | Phone: | | | | | F/U | Phone: | [phone] | | | | | | [phone] | Fax: | | | | | | Fax: | [phone] | | | | | | [phone] | | +--------+--------+ + + + + Encounter Details +--------+---------+ + + + | Date | Type | Department | Care Team | Description | +--------+---------+ + + + | 02/01/ | Office | [facility] | Jerson Scout Mistry, | Primary pulmonary | | 2017 | Visit | PULMONARY [address] | hypertension (HCC) | | | | [place], | [place] [address] | (Primary Dx); | | | | [place] [address] | [phone] | Chronic respiratory | | | | [phone] | | failure with hypoxia | | [...] on medication and oxygen and BiPAP at [facility] HPI: I am able to reconstruct this patient's history with the benefit of Dr. Elvi rivera's pulmonary clinic notes from [facility] in [facility] from May 17, 2016. Today, she is [...] was apparently diagnosed August 08, 2013 in [place] at [facility] on 2 L with right atrial mean [...] July 2015 chest x-ray. An echocardiogram from [facility] done March 09, 2016, a little b [...] be seeing her pulmonary hypertension specialist in [place] before then. The note from 2015 was very helpful. Over half the session was spent in counseling. [employer] was used as a legal word processor and I a pologized for uncorrected mistakes. Scout Arthur M.D. Pulmonary critical care documented i n this encounter Plan of Treatment +--------+ + + + + | Date | Type | Specialty | Care Team | Description | +--------+ + + + + | 07/23/ | Appointment | Pulmonology | Helen Astudillo | | | 2019 | | | MD Vikash [address] | | | | | | [address] [facility] | | | | | | [place] [address] | | | | | | [phone] | | | | | | | | +--------+ + + + + | 07/23/ | Office | Pulmonology | Helen Astudillo | | | 2019 | Visit | | MD Vikash [address] | | | | | | [address] | | | | | | [place] [address] | | | | | | [phone] | | | | | | | [...]
--- OUTSIDE RECORDS SUMMARY | ~2020-05-02 | XMS | Encounter Summary ---
Demographics + + + | Address | [address] | | | [place] [address] | + + + | Home Phone | | + + + | Preferred Language | Unknown | + + + | Marital Status | Single | + + + | Pentecostal Affiliation | NRP | + + + | Race | White | + + + | Ethnic Group | Not or | + + + Author + + + | Author | [facility] | + + + | Organization | [facility] | + + + | Address | Unknown | + + + | Phone | Unavailable | + + + Support + + +---------+ + | Name | Relationship | Address | Phone | + + +---------+ + | Lidia Thibodeaux | ECON | Unknown | | + + +---------+ + Care Team Providers + +------+ + | Care Bone Density Technician Name | Role | Phone | + +------+ + | Gela Trimble NP | PCP | | + +------+ + Encounter Details +--------+ + + + + | Date | Type | Department | Care Team | Description | +--------+ + + + + | 05/04/ | Results | Stress | Other, Faculty | | | 2012 | Only | Echocardiography | [phone] | | | | | [address] | | | | | | [address] Mailcode: | | | | | | [id number] Outpatient | | | | | | Clinic Building | | | | | | [place], [place] | | | | | | [address] | | | | | | [phone] | | | +--------+ + + + [...] | + +--------+ + + + | EJECTION FRACTION | Routin | 05/04/2013 | | Results for this | | | e | 4:01 PM | | procedure are in the | | | | PDT | | results section. | + +--------+ + + + documented in this encounter Results EJECTION FRACTION (05/04/2013 4:01 PM PDT) + + + + + + | Component | Value | Ref Range | Performed | Pathologist | | | | | At | Signature | + + + + + + | EJECTION | 60 - 65%Comment: EF | | [facility] | | | FRACTION | Recorded from | | OF | | | | Transthoracic | | CARDIOLOGY | | | | Echocardiogram | | | | + + + + + + + + | Specimen | + + | | + + + + + + + | Performing | Address | City/State/Zipcode | Phone Number | | Organization | | | | + + + + + | [facility] | [address] | [place], [place] | | | CARDIOLOGY | [facility] | [address] | | + + + + + documented in this encounter Visit Diagnoses Not on filedocumented in this encounter"
--- OUTSIDE RECORDS SUMMARY | ~2020-05-02 | XMS | Encounter Summary ---
Demographics + + + | Address | [address] | | | [place] [address] | + + + | Home Phone | | + + + | Preferred Language | Unknown | + + + | Marital Status | Single | + + + | Rastafari Affiliation | 1009 | + + + | Race | Unknown | + + + | Ethnic Group | Unknown | + + + Author + + + | Author | [facility] | | | and [place] | + + + | Organization | [facility] | | | and [place] | + + + | Address | Unknown | + + + | Phone | Unavailable | + + + Support + + + + + | Name | Relationship | Address | Phone | + + + + + | [employer] | ECON | [id number] | | | | | Unknown | | + + + + + Care Team Providers + +------+ + | Care Letterpress Setter Name | Role | Phone | + [...] | 2018 | | [address] | [employer] [address] | | | | | [address] | [address] | | | | | [place], [place] | [place] [address] | | | | | [address] | [phone] | | | | | [phone] | | | +--------+ + + + [...] | | | | | [place] [address] | | | | | | [phone] | | | | | | | | +--------+ + + + + | 07/23/ | Office | Pulmonology | Helen Astudillo | | | 2019 | Visit | | MD [address] | | | | | | [address] [place] | | | | | | [place] [address] | | | | | | [phone] | | | | | | | [...] | | | 0.80 m/s MV Dec Leslie: 2.28 m/s2 MV DecT: 328.32 ms MV [...] TR Vmax: 3.20 m/s | | | Decaler: JERRI Authenticated by: Vern Boston Report | | | Date/Time: 06-30-2018 5:55:36 | | + + + + + | Procedure Note | + + | Gabriel Zafar Conversion - 06/21/2019 4:07 PM PDT Patient Name: Amrik Julia of | | : 1965 Performing Physician: Vern | | Lduy INDICATIONS------ | | -----PULMONARY HTN CONCLUSIONS 1. [...] cmLVPWd: | | 0.71 cmLVOT Area: 2.68 [id number] Diam: 1.84 cm%FS: 48.21 %EF(Teich): 79.87 | | %ESV(Teich): 16.84 mlLVIDs: 2.23 cmSV(Teich): 66.85 mlRVIDd: 2.99 cmLVEF MOD | | A4C: 62.52 %SV MOD A4C: 57.86 mlLVEDV MOD A4C: 92.54 mlLVLd A4C: 7.40 cmLVESV | | MOD A4C: 34.68 mlLVLs A4C: 6.14 cmLAESV(A-L): 40.81 mlLAESV Index (A-L): 23.05 | | ml/m2LAAs A2C: 16.03 [id number] A-L A2C: 43.10 mlLALs A2C: 5.06 cmLAAs A4C: 14.91 | | [id number] A-L A4C: 37.94 mlLALs A4C: 4.97 cmRAAs: 14.88 [id number] A-L: 41.10 | | mlRAESV MOD: 39.25 mlRALs: 4.57 cmTAPSE: 2.21 cmAV maxP.90 mmHgAV meanPG: | | 6.42 mmHgAV Vmax: 1.72 m/Augustus Vmean: 1.18 m/Augustus VTI: 29.25 cmAVA Vmax: 2.30 | | cm2AVA (VTI): 2.65 cb5IYPC (Vmax): 0.00 cm2/m2AVAI (VTI): 0.00 cm2/m2LVOT maxPG: | | 8.77 mmHgLVOT meanP.18 mmHgLVSI Dopp: 43.93 ml/m2LVSV Dopp: 77.77 mlLVOT | | Vmax: 1.48 m/sLVOT Vmean: 0.92 m/sLVOT VTI: 28.95 cmMV A Royal: 0.80 m/sMV Dec | | Leslie: 2.28 m/s2MV DecT: 328.32 msMV E Royal: 0.75 m/sMV E/A Ratio: 0.93MV PHT: | | 95.21 msMVA By PHT: 2.31 kd5Jiajnl e': 0.04 m/sSeptal E/e': 15.90Lateral e': | | 0.08 m/sLateral E/e': 8.87RAP: 5 mmHgRVSP: 46.05 mmHgTR maxP.05 mmHgTR | | Vmax: 3.20 m/s Decaler: JERRIAuthenticated by: Vern BostonReport Date/Time: | | 06-30-2018 5:55:36 IMPRESSION: 1. [...] A Royal: 0.80 m/s | |MV Dec Leslie: 2.28 m/s2 | |MV DecT: 328.32 ms [...] |TR Vmax: 3.20 m/s | | | |Decaler: DBS | |Authenticated by: Vern Boston | [...]
--- OUTSIDE RECORDS SUMMARY | ~2020-05-02 | XMS | Encounter Summary ---
Demographics + + + | Address | [address] | | | [place] [address] | + + + | Home Phone [...] | Organization | [facility] | | | and [place] | + + + | Address | Unknown | + + + | Phone | Unavailable | + + + Support + + + + + | Name | Relationship | Address | Phone | + + + + + | [employer] | ECON | [id number] | | | | | Unknown | | + + + + + Care Team Providers + +------+ + | Care Kindergarten Paraprofessional Name | Role | Phone | + [...] | | | Pulmonology | obstructive | CORE [address] | MD | | | | | pulmonary | [address] | | | | | | disease, | [place], | | | | | | unspecified | [place] [address] | | | | | | ([facility]) | Phone: | | | | | | Procedures | [phone] | | | | | | F/U | Fax: | | | | | | | [phone] | | +--------+--------+ + + + + Encounter Details +--------+---------+ + + + | Date | Type | Department | Care Team | Description | +--------+---------+ + + + | 11/07/ | Office | [facility] | [place], | Primary pulmonary | | 2016 | Visit | PULMONARY [address] | Vera Farrar MD | hypertension | | | | [place], | | (Primary Dx); [place] | | | | [place] [address] | | (obstructive sleep | | | | [phone] | | apnea); Hypoxemia; | | | | | | High risk medication | | | | | | use | +--------+---------+ + + + Social [...] + +---+---+---+ + + | Tobacco Cessation: Ready to Quit: Yes; Counseling Given: No | | Comments: Smoking a cigarette every 2 [...] + + + | Blood Pressure | 108/64 | 11/07/2015 2:43 PM | | | | | PST | | + + + + + | Pulse | 64 | 11/07/2015 2:43 PM | | | | | PST | [...] Weight | 93.9 kg (207 lb) | 11/07/2015 2:43 PM | | | | | PST | | + + + + + | Height | 149.9 cm (4' 11") | 11/07/2015 2:43 PM | | | | | PST | | + + + + + | Body Mass Index | 41.81 | 11/07/2015 2:43 PM | | | | | PST | | + + + + + documented in this encounter Patient Instructions Patient Instructions eVra Lainez MD - 11/07/2015 3:23 PM PSTIncrease the walkin g to 1500 feet 6 days a week. I would encourage a 4 wheeled walker with brakes and a seat to use with walking to carry th e oxygen for longer walks, but make sure it is tall enough that she is not stooping to hold on to it. Yes, I want you to work on quitting smoking. You can try the onions, though it may not help . The hard candy does work for people, just do not over do it. Make sure the urine test gets done monthly. documented in this encounter Progress Notes Vera Lainez MD - 11/07/2015 2:53 PM PSTFormatting of this note might be differe nt from the original. Pulmonary Follow Up HPI Margarita Rowley is a 50 y.o. female patient of VIKAS Galicia here today for follow up of primary pulmonary hypertension. At their last visit, we had checked routine labs, and resumed the Adcirca. Since their last visit she feels like she has been doing about the same. She has not had any acute illnesse s. She has not had any low blood pressure or fainting spells since last seen. She is currently on a regimen of Adcirca 40mg daily, and Letairis 10mg daily. She also take s furosemide 80mg twice daily. She returns today for routine follow up. She is exercising regularly. She walks at work, walking the prescribed 1200 feet 6 days pe r week. She can do this without stopping. She has not noticed any leg swelling. Her weight has been stable. She has been sticking to her diet, other than a snack in the afternoon. She has been using her BiPAP machine with a 6LPM bleed in. She does wake up sometimes feeli ng like she is choking despite this, and she will take a deep breath in, and then this impro ves. She does sleep slightly angled, on her back. She has been evaluated for daytime oxygen and does use it. She is currently on 1 LPM at rest, 4LPM with exertion. She runs in the 90s at rest and in the low 90s to high 80s on exertion. Past Medical History Past Medical History Diagnosis Date COPD (chronic obstructive pulmonary disease) ([facility]) moderate, FEV1 1.40 (59%) Pulmonary hypertension ([facility]) severe, class 1, class 2, class 3 Bipolar disorder ([facility]) PTSD (post-traumatic stress disorder) Osteoarthritis Obstructive sleep apnea AHI 64.2 Vitamin D deficiency GERD (gastroesophageal reflux disease) Hypothyroidism Seizure disorder ([facility]) Developmental delay Hypoxemia on 2L at rest, 4L with exertion Female stress incontinence Pyelonephritis Hypertension Impulse control disorder Hyperlipidemia Obesity Alcohol abuse Cocaine abuse Past Surgical History Past Surgical History Procedure Laterality Date Mouth surgery 2 teeth removed Cardiac catherization Social History: History Social History Marital Status: Single Spouse Name: N/A Number of Children: N/A Years of Education: N/A Occupational History Disabled. AnyMeeting Social History Main Topics Smoking status: Current Every Day Smoker -- 1.00 packs/day for 20 years Types: Cigarettes Smokeless tobacco: Never Used Alcohol Use: No Drug Use: No Sexual Activity: None Other Topics Concern None Social History Narrative Lives at [facility]. Allergies: Allergies Allergen Reactions Erythromycin Metronidazole Penicillins Sulfa Antibiotics Medications: Outpatient Encounter Prescriptions as of 11/07/2015 Medication Sig Dispense Refill acetaminophen (MAPAP) 325 mg tablet Take 650 mg by mouth every 4 hours as needed. albuterol (VENTOLIN HFA) 90 mcg/puff inhaler Inhale 2 puffs into the lungs every 6 hour s as needed. [DISCONTINUED] albuterol 90 mcg/puff inhaler Inhale 2 puffs into the lungs every 6 hour s as needed for Wheezing. ambrisentan (LETAIRIS) 10 MG tablet Take 10 [...] TABS Take 2,000 Units by mouth Daily. [place] Starch POWD by Does not apply route [...] mg onto the skin every 24 hours. [place]-3 Fatty Acids (SEA-OMEGA 30) 1200 MG CAPS [...] tablets by mouth Daily. 60 tablet 5 trolamine salicylate (ASPERCREME) 10% cream Apply topically as needed. UNCODED MEDICATION Change pressure on BiPAP to 16/5 cm with backup of 8 and 5 L/min O2 bled into system. 1 Device 0 vitamin B-12 (CYANOCOBALAMIN) 1000 MCG tablet Take 1,000 mcg by mouth Daily. No facility-administered encounter medications on file as of 11/07/2015. Review of Systems: General: []Weight loss/gain (over 10 lbs) []Fever/chills/sweats []Night sweats EENT: []Hearing loss []Vision loss/change []Sinus congestion/nasal drainage []Nosebleeds [] Hoarseness Cardiac: []Chest pain []Palpitations/heart racing [x]Swelling of legs/ankles []Waking up at night short of breath []Difficulty sleeping flat Gastrointestinal: []Nausea/vomiting []Difficulty swallowing []Heartburn/acid reflux []Loss of appetite []Ab dominal pain Urologic: []Blood in urine []Frequent urination at night []Burning/painful urination []Difficulty wit h urination Objective BP 108/64 mmHg | Pulse 64 | Ht 1.499 m (4' 11") | Wt 93.895 kg (207 lb) | BMI 41.79 kg/m2 | SpO2 | ? No General Appearance: Alert, cooperative, no distress, appears stated age, on oxygen, restin g tremor, flushed Head: Normocephalic, without obvious abnormality, atraumatic Eyes: PERRL, conjunctiva clear, no scleral icterus, EOM's intact Ears: Normal TM's, external auditory canals, normal acuity Nose: Nares normal, septum midline, mucosa normal Mouth: No oral lesions or exudate Neck: Supple, symmetrical, no adenopathy Lungs: No accessory muscle use, breath sounds are diminished bilaterally, no wheezes, overhead crane truck loader ckles or rhonchi Chest Wall: No deformity Heart: Regular rate and rhythm, I do not appreciate a split S2, no murmur, rub or gallop Abdomen: Soft, non-tender, non-distended, obese Extremities: No cyanosis, clubbing, trace lower extremity edema Pulses: Radial pulses 2+ and symmetric Skin: Warm and dry Lymph nodes: Cervical and supraclavicular nodes normal Data: Six Minute walk: The patient walked 152.4 meters in 6 minutes, stopping to rest 2 times. Th eir baseline oxygen saturation was 94% and baseline heart rate was 65 BPM on 4L of oxygen. Oliverio shetty desaturated to 92% with exertion on 4L of oxygen. Their peak heart rate with exertion wa s 115 BPM. Overnight oximetry was done on August 15, 2015 on 5L bled in to her BPAP machine and was r eviewed and interpreted in clinic today. It shows she spent 315 minutes with a saturation le ss than 88 %. Overnight oximetry was done on August 22, 2015 on 6L bled in to BPAP and was reviewed and interpreted in clinic today. It shows she spent 2.7 minutes with a saturation less than 88%. Immunization History Administered Date(s) Administered INFLUENZA, TRIVALENT PRESERVATIVE FREE (PED/ADOL/ADULT) 07/31/2013, 07/30/2015 PNEUMOCOCCAL POLYSACCHARIDE 23-VALENT (PPSV23) 03/12/2015 Assessment ICD-10-CM ICD-9-CM 1. Primary pulmonary hypertension I27.0 416.0 On tadalafil and ambrisentan with furosemide 80mg twice daily. Appears clinically stable and fairly euvolemic. Ambrisentan added recently as she had increasing pulmonary pressures and clinical decline, though this is partly due t o dietary non compliance, not using her oxygen appropriately. * [facility] ([facility]) Pulmonary Function Testing - AMB Referral 2. GLORIA (obstructive sleep apnea) G47.33 327.23 3. Hypoxemia R09.02 799.02 On oxygen 6L at night, and 4L daytime. This appears to be adequa te for controlling her saturations. 4. High risk medication use Z79.899 V58.69 On tadalafil and ambrisentan. She has been doing monthly urine HCG testing. We will check updated CBC and CMP today. CBC with Differential Comprehensive Metabolic Panel Plan 1.Continue on ambrisentan 10mg daily. 2.Continue on tadalafil 40mg daily. 3.Continue oxygen 6L at night, and 4L daytime. 4. I asked them to increase her daily exercise to 1500 feet 6 days weekly as she otherwise tends to be very inactive. She can use a 4 wheeled walker to walk and carry the oxygen for h er. 5. Smoking cessation is advised, as have the risks of not wearing her oxygen and desaturati ng during her smoking time. She obviously cannot wear her oxygen when smoking. 6. Check monthly urine tests. 7. Check CBC and CMP today. 8. Continue on furosemide 80mg twice daily. She was advised to call if new pulmonary symptoms were to develop. Return to clinic in 3 months, or sooner with concerns. CC: VIKAS Galicia, Lashae Rivera MD Portions of this report were transcribed using voice recognition software. Every effort wa s made to ensure accuracy; however, inadvertent computerized side splitter errors may be pre sent. documented in [...] | | | | | [place] [address] | | | | | | [phone] | | | | | | | | +--------+ + + + + | 07/23/ | Office | Pulmonology | Helen Astudillo | | | 2019 | Visit | | MD Vikash [address] | | | | | | [address] | | | | | | [place] [address] | | | | | | [phone] | | | | | | | | +--------+ + + + + documented as of this encounter Procedures + +--------+ + + + | Procedure Name | Priori | Date/Time | Associated Diagnosis | Comments | | | ty | | | | + +--------+ + + + | DIAGNOSTIC REPORT - | | 11/07/2015 | | | | EXTERNAL SCAN | | 12:00 AM | | | | | | PST | | | + +--------+ + + + | DIAGNOSTIC REPORT - | | 11/07/2015 | | | | EXTERNAL SCAN | | 12:00 AM | | | | | | PST | | | + +--------+ + + + documented in this encounter Results Comprehensive Metabolic Panel (11/07/2015 3:37 PM PST) + + + + + + | Component | Value | Ref Range | Performed | Pathologist | | | | | At | Signature | + + + + + + | Na | 138 | 136 - 149 | [facility] | | | | | mmol/L | [facility] | | | | | [facility] | | | | | | [facility] - | | | | | | LABORATORY | | + + + + + + | K | 4.3 | 3.5 - 5.1 | [facility] | | | | | mmol/L | [facility] | | | | | | [facility] | | | | | | [facility] - | | | | | | LABORATORY | | + + + + + + | Cl | 102 | 98 - 109 mmol/L | [facility] [...] + + + | Anion Gap | 8 | 3 - 16 mmol/L | [facility] | | | | | | [facility] | | | | | | [facility] | | | | | | [facility] - | | | | | | LABORATORY | | + + + + + + | Glucose | 91 | 70 - 109 mg/dL | [facility] | | | | | | [facility] | [facility] | | | | | | [facility] - | | | | | | LABORATORY | | + + + + + + | BUN | 15 | 7 - 18 mg/dL | [facility] | | | | | | [facility] | [facility] | | | | | | [facility] - | | | | | | LABORATORY | | + + + + + + | Creatinine | 1.02 | 0.60 - 1.30 | [facility] | | | | | mg/dL | [facility] | | [facility] | [facility] | | | | | | [facility] - | | | | | | LABORATORY | | + + + + + + | eGFR if not | 57 (L)Comment: | >=60 | [facility] | | | | GLOMERULAR FILTRATION | mL/min/1.73m2 | [facility] | | | EMIRATI | RATE,ESTIMATED | | MEDICAL | | | | mL/min/1.30o5Vyej than | | CENTER - | | [...] + + + + | Calcium | 9.6 | 8.3 - 10.5 | [facility] | | | | | mg/dL | [facility] | | | | | [facility] | | | | | | [facility] - | | | | | | LABORATORY | | + + + + + + | Albumin | 4.0 | 3.2 - 5.0 g/dL | [facility] | | | | | | [facility] | | [facility] | [facility] | | | | | | [facility] - | | | | | | LABORATORY | | + + + + + + | Bilirubin | 0.4 | 0.1 - 1.5 mg/dL | [facility] | | | Total | | | [facility] | | [facility] | | [facility] | | | | | | [facility] - | | | | | | LABORATORY | | + + + + + + | Total | 7.1 | 6.0 - 7.8 g/dL | [facility] | | | Protein | | | [facility] | | | | | | [facility] | | | | | | [facility] - | | | | | | LABORATORY | | + + + + + + | AST | 18 | 10 - 42 U/L | [facility] | | | | | | [facility] | | | | | | [facility] | | | | | | [facility] - | | | | | | LABORATORY | | + + + + + + | ALT | 13 | 6 - 45 U/L | [facility] | | | | | | [facility] | | | | | | [facility] | | | | | | [facility] - | | | | | | LABORATORY | | + + + + + + | Alkaline | 61 | 40 - 110 U/L | [facility] [...] + + + + | Albumin/Clarice | 1.3 | | [facility] | | | bulin Ratio | | | [facility] | | | | | | [facility] | | | | | | [facility] - | | | | | | LABORATORY | | + + + + + + | BUN/Creatin | 14.7 | | [facility] | | | ine [...] [address] | [place] | [phone] | | [facility] | | [address] | | | - LABORATORY | | | | + + + + + CBC with Differential (11/07/2015 3:37 PM PST) + +-------+ + + + | Component | Value | Ref Range | Performed | Pathologist | | | | | At | Signature | + +-------+ + + + | WBC | 5.6 | 4.0 - 11.0 K/uL | [facility] | | | | | | [facility] | [facility] | [facility] | | | | | | [facility] - | | | | | | LABORATORY | | + +-------+ + + + | RBC | 4.10 | 3.70 - 5.20 | [facility] | | | | | M/uL | [facility] | | | | | [facility] | | | | | | [facility] - | | | | | | LABORATORY | | + +-------+ + + + | Hemoglobin | 12.6 | 11.5 - 16.0 | [facility] | | | | | g/dL | [facility] | | | | | | [facility] | | | | | | [facility] - | | | | | | LABORATORY | | + +-------+ + + + | Hematocrit | 38.5 | 34.0 - 47.0 % | [facility] | | | | | | [facility] | | [facility] | [facility] | | | | | | [facility] - | | | | | | LABORATORY | | + +-------+ + + + | MCV | 93.9 | 83.0 - 101.0 fL | [facility] | | | | | | [facility] | | | | | | [facility] | | | | | | [facility] - | | | | | | LABORATORY | | + +-------+ + + + | MCH | 30.7 | 28.0 - 35.0 pg | [facility] | | | | | | [facility] | [facility] | [facility] | | | | | | [facility] - | | | | | | LABORATORY | | + +-------+ + + + | MCHC | 32.7 | 32.0 - 36.0 | [facility] | | | | | g/dL | [facility] | | [facility] | [facility] | | | | | | [facility] - | | | | | | LABORATORY | | + +-------+ + + + | RDW-CV | 14.0 | <15.0 % | [facility] | | | | | | [facility] | [facility] | | | | | | [facility] - | | | | | | LABORATORY | | + +-------+ + + + | Platelet | 162 | 140 - 440 K/uL | [facility] | | | Count | | | [facility] | | | | | | [facility] | | | | | | [facility] - | | | | | | LABORATORY | | + +-------+ + + + | MPV | 9.1 | fL | [facility] | | | | | | [facility] | | | | | | [facility] | | | | | | [facility] - | | | | | | LABORATORY | | + +-------+ + + + | % | 62.4 | 45.0 - 82.0 % | [facility] | | | Neutrophils | | | [facility] | | | | | | MEDICAL | | | | | | CENTER - | | | | | | LABORATORY | | + +-------+ + + + | % | 26.0 | 20.0 - 45.0 % | [facility] | | | Lymphocytes | | | [facility] | | | | | | MEDICAL | | | | | | CENTER - | | | | | | LABORATORY | | + +-------+ + + + | % Monocytes | 8.8 | 4.0 - 12.0 % | [facility] | | | | | | [facility] | | | | | | [facility] | | | | | | [facility]ENTER - | | | | | | LABORATORY | | + +-------+ + + + | % | 2.3 | 0.0 - 5.0 % | [facility] | | | Eosinophils | | | [facility] | | | | | | MEDICAL | | | | | | CENTER - | | | | | | LABORATORY | | + +-------+ + + + | % Basophils | 0.5 | 0.0 - 1.0 % | [facility] | | | | | | [facility] | | | | | | [facility] | | | | | | CENTER - | | | | | | LABORATORY | | + +-------+ + + + | Absolute | 3.50 | 1.80 - 8.50 | [facility] | | | Neutrophils | | K/uL | [facility] | | | | | | [facility] | | | | | | CENTER - | | | | | | LABORATORY | | + +-------+ + + + | Absolute | 1.40 | 0.60 - 3.20 | [facility] | | | Lymphocytes | | K/uL | [facility] | | | | | | [facility] | | | | | | [facility]ENTER - | | | | | | LABORATORY | | + +-------+ + + + | Absolute | 0.50 | 0.00 - 1.00 | [facility] | | | Monocytes | | K/uL | [facility] | | | | | [facility] - | | | | | | LABORATORY | | + +-------+ + + + | Absolute | 0.10 | 0.00 - 0.40 | [facility] | | | Eosinophils | | K/uL | [facility] | | | | | | [facility] | | | | | | CENTER - | | | | | | LABORATORY | | + +-------+ + + + | Absolute | 0.00 | 0.00 - 0.10 | [facility] | | | Basophils | | K/uL | [facility] | | | | [...] [facility]. | [address] | [place] | [phone] | | [facility] | | [address] | | | - LABORATORY | | | | + + + + + documented in this encounter Visit Diagnoses + + | Diagnosis | + + | Primary pulmonary hypertension - Primary | + + | GLORIA (obstructive sleep apnea) Obstructive sleep apnea (adult) (pediatric) | + + | Hypoxemia | + + | High risk medication use Encounter for long-term (current) use of other medications | + + documented in this encounter
--- OUTSIDE RECORDS SUMMARY | ~2020-05-02 | XMS | Encounter Summary ---
Demographics + + + | Address | [address] | | | [place] [address] | + + + | Home Phone | | + + + | Preferred Language | Unknown | + + + | Marital Status | Single | + + + | Restorationist Affiliation | [id number] | + + + | Race | Unknown | + + + | Ethnic Group | Unknown | + + + Author + + + | Author | [facility] | | | and [place] | + + + | Organization | [facility] | | | and [place] | + + + | Address | Unknown | + + + | Phone | Unavailable | + + + Support + + + + + | Name | Relationship | Address | Phone | + + + + + | [employer] | ECON | [id number] | | | | | Unknown | | + + + + + Care Team Providers + +------+ + | Care Motorboat Operator Name | Role | Phone | + +------+ + | Gela Trimble HELICOPTER REPAIRER | PCP | | + +------+ + [...] | Primary | [place], | [address] | | | | | pulmonary | Vera B, | [place], | | | | | hypertension | MD [address] | [place] | | | | | (HCC) | [address] | [address] | | | | | Procedures | [place], | Phone: | | | | | ECHO | [place] [address] | [phone] | | | | | Complete | | Fax: | | | | | APPT | | [phone] | | | | | 03/18/14. | [...] | Primary | [place], | [address] | | | | | pulmonary | Vera B, | [place], | | | | | hypertension | MD [address] | [place] | | | | | ([facility]) | [address] | [address] | | | | | Procedures | [place], | Phone: | | | | | ECHO | [place] [address] | [phone] | | | | | Complete | | Fax: | | | | | APPT | | [phone] | | | | | 03/18/14. | | | | | | | DEFERRED T0 | | | | | | | 03/01/14 | | | +--------+--------+ + + + + Encounter Details +--------+ + + + + | Date | Type | Department | Care Team | Description | +--------+ + + + + | 03/12/ | Hospital | [facility] | [place], | Primary pulmonary | | 2013 | Encounter | [facility] [address] | Vera Farrar MD | hypertension | | | | [address] | [place], | | | | | [place] [address] | Technologist | | | | | [phone] | | | +--------+ + + + [...] | | | | | | | ([facility]) | | | | | | + + + +---------+ + + | buPROPion | Take 100 mg by mouth | | 0 | | | | (WELLBUTRIN) 100 mg | 2 times daily. | | | | 6 | | tablet | | | | | | + + + +---------+ + + | [place] Starch POWD | by Does not apply [...] + + + +---------+ + + | [place]-3 Fatty | Take by mouth. | | [...] | | | | | [place] [address] | | | | | | [phone] | | | | | | | | +--------+ + + + + | 07/23/ | Office | Pulmonology | Helen Astudillo | | | 2019 | Visit | | MD [address] | | | | | | [address] | | | | | | [place] [address] | | | | | | [phone] | | | | | | | [...] Performed At | + + + | [facility] ECHOCARDIOGRAM REPORT | [facility] | | STUDY DATE: 03/12/2014 PATIENT NAME: Margarita Rowley : | [facility] | | 1965 PCP: Gela Trimble [facility] | | HISTORY/DIAGNOSIS: PULM HTN [...] | | S. Ananth Salguero MD PhD [facility] 03/12/2014 8:38 | | | Senior Analysis Specialist: Hung Caro, RDCS, RVT, RDMS | | + + + + + | Procedure Note | + + | Roberto Salguero MD - 03/12/2014 6:05 PM [facility] | | CENTERECHOCARDIOGRAM REPORTSTUDY DATE: 03/12/2014PATIENT NAME: Margarita Lugo OscarB: | | 1965MRN: [id number]: Gela DayINICAL HISTORY/DIAGNOSIS: PULM HTNA | | [...] | mmHgLA volume: 34 mLLA index: 18 mL/s1Qsuare Inflow DT: 290 msIVRT: 117 msValsalva: | | YES, TO NO EFFECTPWDTI S wave: 12.0 cm/sPWDTI E wave: 15.5 cm/sPWDTI A wave: 24.1 | | cm/sE/A Ratio: 0.643E/E Ratio: Signed by: Artie Salguero MD PhD [facility] 03/12/2014 | | 8:38 Senior Analysis Specialist: Hung Caro RDCS, RVT, RDMS | |Mitral valve: mildly [...] 03/12/2014 8:38 | | | | | |Senior Analysis Specialist: Hung Caro RDCS, RVT, RDMS | + + + + + + + | Performing | Address | City/State/Zipcode | Phone Number | | Organization | | | | + + + + + | [facility] | [address] | [place], [place] | [phone] | | [facility] | | [address] | | | - IMAGING | | | | + + + + + documented in this encounter Visit Diagnoses + + | Diagnosis | + + | Primary pulmonary hypertension | + + documented in this encounter"
--- OUTSIDE RECORDS SUMMARY | ~2020-05-02 | XMS | Encounter Summary ---
Demographics + + + | Address | [address] | | | [place] [address] | + + + | Home Phone [...] + | Organization | [facility] | | | and [place] | + + + | Address | Unknown | + + + | Phone | Unavailable | + + + Support + + + + + | Name | Relationship | Address | Phone | + + + + + | [employer] | ECON | [phone] | | | | | Unknown | | + + + + + Care Team Providers + +------+ + | Care Supply Coordinator Name | Role | Phone | + +------+ + | Gela Trimble DIRECTOR OF MARKETING [employer] PERFORMANCE ADS | PCP | | + +------+ + [...] | Primary | [place], | [address] | | | | | pulmonary | Vera B, | [place], | | | | | hypertension | MD [address] | [place] | | | | | (HCC) | [address] | [address] | | | | | Procedures | [place], | Phone: | | | | | ECHO | [place] [address] | [phone] | | | | | Complete | | Fax: | | | | | APPT | | [phone] | | | | | 03/18/14. | [...] + + | 12/17/ | Office | [facility] | Fatou, | Primary pulmonary | | 2013 | Visit | PULMONARY [address] | Vera Farrar MD | hypertension | | | | [place], | | (Primary Dx); [place] | | | | [place] [address] | | (obstructive sleep | | | | [phone] | | apnea); COPD | | | [...] MD [place] Pulmonary and Critical Care [facility] [address] [place], [address] [facility] Margarita Rowley is a 48 y.o. female [...] Years of Education: N/A Occupational History Disabled. [employer] Social History Main Topics Smoking status: Former Smoker -- 1.0 packs/day for 20 years Types: Cigarettes Quit date: 05/14/2013 Smokeless tobacco: None Alcohol Use: Yes Comment: history of abuse Drug Use: Yes Special: Cocaine Comment: history of cocaine use Sexually Active: None Other Topics Concern None Social History Narrative Lives at [employer]. Allergies: Allergies Allergen Reactions Erythromycin Metronidazole Penicillins [...] TABS Take 2,000 Units by mouth Daily. [place] Starch POWD by Does not apply route [...] mg by mouth 2 times da jammie. 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 documented in [...] | | | | | [place] [address] | | | | | | [phone] | | | | | | | | +--------+ + + + + | 07/23/ | Office | Pulmonology | Helen Astudillo | | | 2019 | Visit | | MD Joey [address] | | | | | | [address] | | | | | | [place] [address] | | | | | | [phone] | | | | | | | | +--------+ + + + + documented as of this encounter Results ECHO Complete (03/12/2014 8:36 AM PDT) + + | Specimen | + + | | + + + + + | Narrative | Performed At | + + + | MERGED WITH [facility] ECHOCARDIOGRAM REPORT | [place] | | STUDY DATE: 03/12/2014 PATIENT NAME: Margarita Rowley : | [facility] | | 1965 PCP: Gela Trimble [facility] | | HISTORY/DIAGNOSIS: PULM HTN [...] PhD FACC 03/12/2014 8:38 | | | Law Firm Partner: Hung Caro, TIRSO, RVT, RDMS | | + + + + + | Procedure Note | + + | Roberto Salguero MD - 03/12/2014 6:[address] [facility] | | CENTERECHOCARDIOGRAM REPORTSTUDY DATE: 03/12/2014PATIENT NAME: Margarita MooreB: | | 1965MRN: [id number]: Gela Fede ShayINICAL HISTORY/DIAGNOSIS: PULM HTNA | | transthoracic [...] | mmHgLA volume: 34 mLLA index: 18 mL/f1Pianks Inflow DT: 290 msIVRT: 117 msValsalva: | | YES, TO NO EFFECTPWDTI S wave: 12.0 cm/sPWDTI E wave: 15.5 cm/sPWDTI A wave: 24.1 | | cm/sE/A Ratio: 0.643E/E Ratio: Signed by: Artie Salguero MD PhD FACC 03/12/2014 | | 8:38 Law Firm Partner: Hung Caro, RDCS, RVT, RDMS | |Mitral [...] 03/12/2014 8:38 | | | | | |Law Firm Partner: Hung Caro, JUANITOCS, RVT, RDMS | + + + + + + + | Performing | Address | City/State/Zipcode | Phone Number | | Organization | | | | + + + + + | [address] | [address] | [place] | [phone] | | [facility] | | [address] | | | - IMAGING | | [...]
--- OUTSIDE RECORDS SUMMARY | ~2020-05-02 | XMS | Encounter Summary ---
Demographics + + + | Address | [address] | | | [place] [address] | + + + | Home Phone | | + + + | Preferred Language | Unknown | + + + | Marital Status | Single | + + + | Gnosticist Affiliation | NRP | + + + | Race | White | + + + | Ethnic Group | Not or | + + + Author + + + | Author | [facility] | + + + | Organization | [facility] | + + + | Address | Unknown | + + + | Phone | Unavailable | + + + Support + + +---------+ + | Name | Relationship | Address | Phone | + + +---------+ + | Lidia Thibodeaux | ECON | Unknown | | + + +---------+ + Care Team Providers + +------+ + | Care Tailor Fitter Name | Role | Phone | + +------+ + | Gela Trimble CHARGE RN | PCP | | + +------+ + [...] | | | | | | | [address] | | | | | | | Zach Saez | | | | | | | Mushtaq Mailcode: | | | | | | | [address] [facility] | | | | | | | Hospital | | | | | | | [place], [place] | | | | | | | [address] | | | | | | | Phone: | | | | | | | [phone] | | | | | | | Fax: | | | | | | | [phone] | +--------+--------+ + + + + Encounter Details +--------+ + + + + | Date | Type | Department | Care Team | Description | +--------+ + + + + | 05/07/ | Results/Int | Pulmonary Function | | Unspecified asthma | | 2012 | erpretation | Lab at [facility] [address] | | (Primary Dx) | | | | [address] | | | | | | [facility] | | | | | | [place], [place] | | | | | | [address] | | | | | | [phone] | | | +--------+ + + + [...] | + +--------+ + + + | DC SPIROMETRY TEST | Routin | 05/08/2013 | [...]
--- OUTSIDE RECORDS SUMMARY | ~2020-05-02 | XMS | Encounter Summary ---
Demographics + + + | Address | [address] | | | [place] [address] | + + + | Home Phone | | + + + | Preferred Language | Unknown | + + + | Marital Status | Single | + + + | Mandaen Affiliation | 1009 | + + + | Race | Unknown | + + + | Ethnic Group | Unknown | + + + Author + + + | Author | [facility] | | | and [place] | + + + | Organization | [facility] | | | and [place] | + + + | Address | Unknown | + + + | Phone | Unavailable | + + + Support + + + + + | Name | Relationship | Address | Phone | + + + + + | [employer] | ECON | [id number] | | | | | Unknown | | + + + + + Care Team Providers + +------+ + | Care Bobtailer Name | Role | Phone | + +------+ + | Gela Trimble NP | PCP | | + +------+ + Reason for Visit +--------+ + | Reason | Comments | +--------+ + | Apnea | | +--------+ + Encounter Details +--------+---------+ + + + | Date | Type | Department | Care Team | Description | +--------+---------+ + + + | 10/16/ | Office | [facility] | Jacky Calderon PA | Primary central | | 2012 | Visit | SLEEP DISORDER [address] | [address] | sleep apnea (Primary | | | | [address] | [place], [place] | Dx) | | | | [place] [address] | [address] | | | | | [phone] | | | +--------+---------+ + + + [...] +---------+ + + | Blood Pressure | 90/58 | 10/16/2013 9:35 AM | | | | | PST | | + +---------+ + + | Pulse | 72 | 10/16/2013 9:35 AM | | | | | PST | | + +---------+ + + | Temperature | - | - | | + +---------+ + + | Respiratory Rate | 18 | 10/16/2013 9:35 AM | | | | | PST | | + +---------+ + + | Oxygen Saturation | 88% | 10/16/2013 9:35 AM | | | | | PST [...] encounter Progress Notes Jacky Calderon PA - 10/16/2013 9:30 AM PST Subjective: Patient ID: Margarita Rowley is a 48 y.o. female. HPI last office visit was: 09/25/2013 date of polysomnography: 03/13/[address] [facility] AHI: 64.2 O2%: n/a Machine type: Respironics BiPAP Auto with ResMed Quattro FX full face mask obtained from: [facility] pressure: 18/14 cm Nights using BiPAP: 20/21 average usage (all nights): 6:27 average usage (nights used): 6:47 AHI: 11.0 Jessie comes in for BiPAP compliance. She was referred by Dr. Lainez to help with her pr oblems with leaks and her apnea not being completely controlled. After reviewing her downlo ad and her titration study, I discovered that her pressure was not set according to Dr. González gerber's recommendation of IPAP 19 cm, EPAP 5 cm and a backup of 8 bpm with 2 L/min O2 bled into the system. Her pressure is 18/14 cm with O2 at 2 L/min. The prescription sent to [facility] in [place] by Dr. Lainez had the correct pressures. [facility] in [facility] will make the adjustment to Jessie's BiPAP to correct this mistake. I have discussed the download in detail. This shows that her sleep apnea is somewhat contr olled, with an AHI of 11.0. This continues to be improved, but should improve further after her BiPAP has the correct pressure settings. Her leaks have improved again. At her last v isit, she was in a large leak for nearly four hours per night. Today the download shows eve rly one hour per night of large leak. Review of Systems Objective: Physical Exam Assessment: Problem #1: CENTRAL SLEEP APNEA (327.21) This is somewhat controlled with BiPAP. Her BiPAP compliance is going well. She currently has the incorrect pressure setting for her BiPAP at 18/14 cm with O2 at 2 L/min. Plan: She is to continue with BiPAP indefinitely. I talked with [facility] in [facility] having her pressures corrected to IPAP 19 cm, EPAP 5 cm and a backup of 8 bpm with 2 L/mi n O2 bled into the system. I will follow up again in 1 month, sooner prn. Fifteen minutes were spent [id number]-[id number], wi th the majority of time spent in counseling. [...] | | | | | [place] [address] | | | | | | [phone] | | | | | | | | +--------+ + + + + | 07/23/ | Office | Pulmonology | Helen Astudillo | | | 2019 | Visit | | MD Vikash [address] | | | | | | [address] | | | | | | [place] [address] | | | | | | [phone] | | | | | | | | +--------+ + + + + documented as of this encounter Visit Diagnoses + + | Diagnosis | + + | Primary central sleep apnea - Primary | + + documented in this encounter"
--- OUTSIDE RECORDS SUMMARY | ~2020-05-02 | XMS | Encounter Summary ---
Demographics + + + | Address | [address] | | | [place] [address] | + + + | Home Phone [...] | Organization | [facility] | | | and [place] | + + + | Address | Unknown | + + + | Phone | Unavailable | + + + Support + + + + + | Name | Relationship | Address | Phone | + + + + + | [employer] | ECON | [phone] | | | | | Unknown | | + + + + + Care Team Providers + +------+ + | Care Doctor Of Naprapathy Name | Role | Phone | + [...] Farrar MD | | | | | [place], | | | | | | [place] [address] | | | | | | [phone] | | | +--------+ + + + [...] Tarah Whitmore RN - 02/28/2014 11:47 AM PDTFHARPREET [facility]ers called stating that it is their protoc ol to inform a patient's physician when they are sent to ER. Maragrita is going to ER at [facility] in [place] for an irregular heart rate and O2 [...] | | | | | [place] [address] | | | | | | [phone] | | | | | | | | +--------+ + + + + | 07/23/ | Office | Pulmonology | Helen Astudillo | | | 2019 | Visit | | MD [address] | | | | | | [address] | | | | | | [place] [address] | | | | | | [phone] | | | | | | | | +--------+ + + + + documented as of this encounter Visit Diagnoses Not on filedocumented in this encounter"
--- OUTSIDE RECORDS SUMMARY | ~2020-05-02 | XMS | Encounter Summary ---
Demographics + + + | Address | [address] | | | [place] [address] | + + + | Home Phone [...] Organization | [facility] | | | and [place] | + + + | Address | Unknown | + + + | Phone | Unavailable | + + + Support + + + + + | Name | Relationship | Address | Phone | + + + + + | [employer] | ECON | [phone] | | | | | Unknown | | + + + + + Care Team Providers + +------+ + | Care Manager Power Name | Role | Phone | + +------+ + | Gela Trimble NP | PCP | | + +------+ + Reason for Visit +--------+--------+ + | Reason | Onset | Comments | | | Date | | +--------+--------+ + | Other | 08/08/ | YUMIKO# for prescription Tim CALDERON#[id number] from | | | 2012 | 08.07.13-08.07.14 | +--------+--------+ + Encounter Details +--------+ + + + + | Date | Type | Department | Care Team | Description | +--------+ + + + + | 08/08/ | Telephone | [facility] | Valeria Reed, | Other (PA# for | | 2012 | | PULMONARY [address] | RN | prescription Adcirca | | | | [place], | | [place]#[id number] from | | | | [place] [address] | | 08.07.13-08.07.14) | | | | [phone] | | | +--------+ + + + [...] this encounter Miscellaneous Notes Telephone Encounter - Valeria Gillis RN - 08/08/2013 9:17 AM [facility] [phone] received prior authorization for 1 year for prescription A dcirca. Called pharmacy and patient caser up. documented in this encounter Plan of Treatment [...] | | | | | [place] [address] | | | | | | [phone] | | | | | | | | +--------+ + + + + | 07/23/ | Office | Pulmonology | Helen Astudillo | | 2019 | Visit | | MD [address] | | | | | | [address] | | | | | | [place] [address] | | | | | | [phone] | | | | | | | | +--------+ + + + + documented as of this encounter Visit Diagnoses Not on filedocumented in this encounter"
--- OUTSIDE RECORDS SUMMARY | ~2020-05-02 | XMS | Encounter Summary ---
Demographics + + + | Address | [address] | | | [place] [address] | + + + | Home Phone [...] | Organization | [facility] | | | and [place] | + + + | Address | Unknown | + + + | Phone | Unavailable | + + + Support + + + + + | Name | Relationship | Address | Phone | + + + + + | [employer] | ECON | [id number] | | | | | Unknown | | + + + + + Care Team Providers + +------+ + | Care Dinkey Motor Operator Name | Role | Phone | [...] [place] | | | | | | [address] | (Fax) | | | | | [phone] | | | +--------+ + + + [...] | | | | | [place] [address] | | | | | | [phone] | | | | | | | | +--------+ + + + + | 07/23/ | Office | Pulmonology | Helen Astudillo | | | 2019 | Visit | | MD Joey Suh | | | | | | [address] | | | | | | [place] [address] | | | | | | [phone] | | | | | | | | +--------+ + + + + documented as of this encounter Visit Diagnoses Not on filedocumented in this encounter"
--- OUTSIDE RECORDS SUMMARY | ~2020-05-02 | XMS | Encounter Summary ---
Demographics + + + | Address | [address] | | | [place] [address] | + + + | Home Phone [...] [facility] | | | and [place] | + + + | Address | Unknown | + + + | Phone | Unavailable | + + + Support + + + + + | Name | Relationship | Address | Phone | + + + + + | [employer] | ECON | [phone] | | | | | Unknown | | + + + + + Care Team Providers + +------+ + | Care Nursing Techn Name | Role | Phone | + +------+ + | Gela Trimble NP | PCP | | + +------+ + Reason for Visit +--------+--------+ + | Reason | Onset | Comments | | | Date | | +--------+--------+ + | Other | 12/27/ | nocturnal O2 increase | | | 2013 | | +--------+--------+ + Encounter Details +--------+ + + + + | Date | Type | Department | Care Team | Description | +--------+ + + + + | 12/27/ | Telephone | [facility] [place] | [place], | Other (nocturnal O2 | | 2013 | | PULMONARY [address] | Vera Farrar MD | increase) | | | | [place], | | | | | | [place] [address] | | | | | | [phone] | | | +--------+ + + + [...] Telephone Encounter - Tarah Nino RN - 12/27/2013 12:52 PM PSTCalled [place] l[facility] c onfirmed O2 increase per Dr Lainez.Electronically signed by Tarah Nino RN at 12/02 12:53 PM PSTTelephone Encounter - Vera Lainez MD - 12/27/2013 12:20 PM PST Yes, this is based on sleep study results. Vickie see PSG results as documented. Electronical ly signed by Vera Lainez MD at 12/27/2013 12:20 PM PSTTelephone Encounter - Tarah Dalton RN - 12/27/2013 9:43 AM PSTStepreid from [employer] called to confirm with that it is okay to increase Margarita's nocturnal O2 to 5 l/m recommended by Dr Ruelas. documented in this encounter Plan of Treatment [...] | | | | | [place] [address] | | | | | | [phone] | | | | | | | | +--------+ + + + + | 07/23/ | Office | Pulmonology | Helen Astudillo | | | 2019 | Visit | | MD Vikash [address] | | | | | | [address] | | | | | | [place] [address] | | | | | | [phone] | | | | | | | | +--------+ + + + + documented as of this encounter Visit Diagnoses Not on filedocumented in this encounter"
--- OUTSIDE RECORDS SUMMARY | ~2020-05-02 | XMS | Encounter Summary ---
Demographics + + + | Address | [address] | | | [place] [address] | + + + | Home Phone [...] + + + | Author | [facility] | | | and [place] | + + + | Organization | [facility] | | | and [place] | + + + | Address | Unknown | + + + | Phone | Unavailable | + + + Support + + + + + | Name | Relationship | Address | Phone | + + + + + | [employer] | ECON | [id number] | | | | | Unknown | | + + + + + Care Team Providers + +------+ + | Care Finisher Plate Name | Role | Phone | + [...] + + | 05/21/ | Office | [facility] | Jacky Calderon PA | Primary central | | 2014 | Visit | SLEEP DISORDER [address] | [address] | sleep apnea (Primary | | | | [address] | [place], [place] | Dx) | | | | [place] [address] | [address] | | | | | [phone] | | | +--------+---------+ + + + [...] was: 01/23/2014 date of polysomnography: 03/13/2013 at [facility] AHI: 64.2 O2%: n/a Machine type: Respironics BiPAP Auto with ResMed Quattro FX full face mask obtained from: [facility] pressure: 16/5 cm with backup rate of [...] year, sooner prn. Fifteen minutes were spent uguf-ep-maat, with the majority of time spent in counseling. Jacky Calderon PA-C cc: VIKAS Beal-Xiang Lainez MD documented in this enco unter Miscellaneous Notes Miscellaneous - [facility] - 05/21/2014 12:00 AM PDT documented in this encounter Plan of Treatment +--------+ + + + + | Date | Type | Specialty | Care Team | Description | +--------+ + + + + | 07/23/ | Appointment | Pulmonology | Helen Astudillo | | | 2019 | | | MD Vikash [address] | | | | | | [address] [facility] | | | | | | [place] [address] | | | | | | [phone] | | | | | | | | +--------+ + + + + | 07/23/ | Office | Pulmonology | Helen Astudillo | | | 2019 | Visit | | MD Vikash [address] | | | | | | [address] | | | | | | [place] [address] | | | | | | [phone] | | | | | | | | +--------+ + + + + documented as of this encounter Visit Diagnoses + + | Diagnosis | + + | Primary central sleep apnea - Primary | + + documented in this encounter"
--- OUTSIDE RECORDS SUMMARY | ~2020-05-02 | XMS | Encounter Summary ---
Demographics + + + | Address | [address] | | | [place] [address] | + + + | Home Phone | | + + + | Preferred Language | Unknown | + + + | Marital Status | Single | + + + | Confucianist Affiliation | 1009 | + + + | Race | Unknown | + + + | Ethnic Group | Unknown | + + + Author + + + | Author | [facility] | | | and [place] | + + + | Organization | [facility] | | | and [place] | + + + | Address | Unknown | + + + | Phone | Unavailable | + + + Support + + + + + | Name | Relationship | Address | Phone | + + + + + | [employer] | ECON | [phone] | | | | | Unknown | | + + + + + Care Team Providers + +------+ + | Care Director Voice Name | Role | Phone | + +------+ + | Gela Trimble NP | PCP | | + +------+ + Encounter Details +--------+ + + + + | Date | Type | Department | Care Team | Description | +--------+ + + + + | 06/20/ | Orders Only | [facility] [place] | [place], | Obstructive sleep | | 2013 | | PULMONARY [address] | Vera Farrar MD | apnea (adult) | | | | [place], | | (pediatric) (Primary | | | | [place] [address] | | Dx) | | | | [phone] | | | +--------+ + + + [...] | | | | | [place] [address] | | | | | | [phone] | | | | | | | | +--------+ + + + + | 07/23/ | Office | Pulmonology | Baudilio Helen | | | 2019 | Visit | | MD Vikash [address] | | | | | | [address] | | | | | | [place] [address] | | | | | | [phone] | | | | | | | | +--------+ + + + + documented as of this encounter Visit Diagnoses + + | Diagnosis | + + | Obstructive sleep apnea (adult) (pediatric) - Primary | + + documented in this encounter"
--- OUTSIDE RECORDS SUMMARY | ~2020-05-02 | XMS | Encounter Summary ---
Demographics + + + | Address | [address] | | | [place] [address] | + + + | Home Phone | | + + + | Preferred Language | Unknown | + + + | Marital Status | Single | + + + | Orthodox Affiliation | NRP | + + + | Race | White | + + + | Ethnic Group | Not or | + + + Author + + + | Author | [facility] | + + + | Organization | [facility] | + + + | Address | Unknown | + + + | Phone | Unavailable | + + + Support + + +---------+ + | Name | Relationship | Address | Phone | + + +---------+ + | Lidia Thibodeaux | ECON | Unknown | | + + +---------+ + Care Team Providers + +------+ + | Care Medical Customer Service Representative Name | Role | Phone | + +------+ + | Gela Trimble INTERPRETER AND TRANSLATOR | PCP | | + +------+ + Encounter Details +--------+ + + + + | Date | Type | Department | Care Team | Description | +--------+ + + + + | 05/17/ | Roof Assembler | Pulmonary & | Alexander Hays MD | Pulmonary | | 2012 | | Critical Care | [address] | hypertension (HCC) | | | | Medicine at | [facility], | (Primary Dx) | | | | [facility] | [place] [address] | | | | | [address] | [phone] | | | | | [address] [facility] | | | | | | [facility]ilion, 3rd Floor | | | | | | [place], [place] | | | | | | [address] | | | | | | [phone] | | | +--------+ + + + [...]
--- OUTSIDE RECORDS SUMMARY | ~2020-05-02 | XMS | Encounter Summary ---
Demographics + + + | Address | [address] | | | [place] [address] | + + + | Home Phone | | + + + | Preferred Language | Unknown | + + + | Marital Status | Single | + + + | Shinto Affiliation | 1009 | + + + | Race | Unknown | + + + | Ethnic Group | Unknown | + + + Author + + + | Author | [facility] | | | and [place] | + + + | Organization | [facility] | | | and [place] | + + + | Address | Unknown | + + + | Phone | Unavailable | + + + Support + + + + + | Name | Relationship | Address | Phone | + + + + + | Projects Horizon | ECON | [phone] | | | | | Unknown | | + + + + + Care Team Providers + +------+ + | Care Academic Affairs Assistant Name | Role | Phone | + +------+ + PCP | Unavailable | + +------+ + Encounter Details +--------+ + + + + | Date | Type | Department | Care Team | Description | +--------+ + + + + | 01/10/ | Hospital | [facility] | Caesar Buitrago | | | 2008 | Encounter | HOSPITAL MED SURG | [address] | | | | | [address] [place] | [facility], | | | | | [place] | [place] [address] | | | | | [address] | [phone] | | | | | [phone] | | | +--------+ + + + [...] | | | | | [place] [address] | | | | | | [phone] | | | | | | | | +--------+ + + + + | 07/23/ | Office | Pulmonology | Helen Astudillo | | | 2019 | Visit | | MD Joey Suh | | | | | | [address] | | | | | | [place] [address] | | | | | | [phone] | | | | | | | | +--------+ + + + + documented as of this encounter Visit Diagnoses Not on filedocumented in this encounter"
--- OUTSIDE RECORDS SUMMARY | ~2020-05-02 | XMS | Encounter Summary ---
Demographics + + + | Address | [address] | | | [place] [address] | + + + | Home Phone | | + + + | Preferred Language | Unknown | + + + | Marital Status | Single | + + + | Sikhism Affiliation | 1009 | + + + | Race | Unknown | + + + | Ethnic Group | Unknown | + + + Author + + + | Author | [facility] | | | and [place] | + + + | Organization | [facility] | | | and [place] | + + + | Address | Unknown | + + + | Phone | Unavailable | + + + Support + + + + + | Name | Relationship | Address | Phone | + + + + + | Projects Horizon | ECON | [phone] | | | | | Unknown | | + + + + + Care Team Providers + +------+ + | Care Production Team Member Name | Role | Phone | [...] | | | CENTER [address] | [facility] | | | | | [address] [place], [place] | [place] [address] | | | | | [address] | [phone] | | | | | [phone] | | | +--------+ + + + [...] | | | | | [place] [address] | | | | | | [phone] | | | | | | | | +--------+ + + + + | 07/23/ | Office | Pulmonology | Helen Astudillo | | | 2019 | Visit | | MD Joey Suh W | | | | | | [address] | | | | | | [place] [address] | | | | | | [phone] | | | | | | | | +--------+ + + + + documented as of this encounter Visit Diagnoses Not on filedocumented in this encounter"
--- OUTSIDE RECORDS SUMMARY | ~2020-05-02 | XMS | Encounter Summary ---
Demographics + + + | Address | [address] | | | [place] [address] | + + + | Home Phone [...] Organization | [facility] | | | and [place]am[place] | + + + | Address | Unknown | + + + | Phone | Unavailable | + + + Support + + + + + | Name | Relationship | Address | Phone | + + + + + | Projects [employer] | ECON | [phone] | | | | | Unknown | | + + + + + Care Team Providers + +------+ + | Care Transaction Processor Name | Role | Phone | + [...] + + | 09/25/ | Office | [facility] | Jacky Calderon PA | Primary central | | 2012 | Visit | SLEEP DISORDER [address] | [address] | sleep apnea (Primary | | | | [address] [place] | [place], [place] | Dx) | | | | [place] [address] | [address] | | | | | [phone] | | | +--------+---------+ + + + [...] + + documented in this encounter Progress Jacky Walker PA - 09/25/2013 10:13 AM PST Subjective: Patient ID: Margarita Rowley is a 48 y.o. female. HPI last office visit was: date of polysomnography: 03/13/2013 at [facility] AHI: 64.2 O2%: n/a Machine type: Respironics BiPAP Auto with ResMed Quattro FX full face mask obtained from: [facility] pressure: 18/14 cm Nights using BiPAP: [...] weeks, sooner prn. Thirty minutes were spent [id number], wit h the majority of time spent in counseling. Jacky Calderon PA-C cc: BRUCE Beal MD documented in this enco unter Miscellaneous Notes Miscellaneous - ONLINK LINDER - 09/25/2013 12:00 AM PST documented in this encounter Plan of Treatment [...] [place] | | | | | | [place] [address] | | | | | | [phone] | | | | | | | | +--------+ + + + + | 07/23/ | Office | Pulmonology | Helen Astudillo | | | 2019 | Visit | | MD Joey Suh W | | | | | | [address] | | | | | | [place] [address] | | | | | | [phone] | | | | | | | | +--------+ + + + + documented as of this encounter Visit Diagnoses + + | Diagnosis | + + | Primary central sleep apnea - Primary | + + documented in this encounter"
--- OUTSIDE RECORDS SUMMARY | ~2020-05-02 | XMS | Encounter Summary ---
Demographics + + + | Address | [address] | | | [place] [address] | + + + | Home Phone [...] | Organization | [facility] | | | and [place] | + + + | Address | Unknown | + + + | Phone | Unavailable | + + + Support + + + + + | Name | Relationship | Address | Phone | + + + + + | Projects [employer] | ECON | [phone] | | | | | Unknown | | + + + + + Care Team Providers + +------+ + | Care Hospice Manager Name | Role | Phone | [...] Description | +--------+---------+ + + + | 07/26/ | Office | [facility] | Jacky Calderon PA | Primary central | | 2017 | Visit | SLEEP DISORDER [address] | [address] | sleep apnea (Primary | | | | [address] [place] | [place] | Dx) | | | | [place] [address] | [address] | | | | | [phone] | | | +--------+---------+ + + + [...] + + + | Blood Pressure | 112/62 | 07/26/2017 10:47 AM | | | | | PDT | | + + + + + | Pulse | 64 | 07/26/2017 10:47 AM | | | | | PDT | | + + + + + | Temperature | - | - | | + + + + + | Respiratory Rate | 16 | 07/26/2017 10:47 AM | | | | | PDT | | + + + + + | Oxygen Saturation | 93% | 07/26/2017 10:47 AM | | | | | PDT | | + + + + + | Inhaled Oxygen | - | - | | | Concentration | | | | + + + + + | Weight | 85.3 kg (188 lb) | 07/26/2017 10:47 AM | | | | | PDT | | + + + + + | Height | - | - | | + + + + + | Body Mass Index | 37.97 | 02/01/2017 11:25 AM | | | | | PDT | | + + + + + documented in this encounter Patient Instructions Patient Instructions Jacky Calderon PA - 07/26/2017 10:30 AM PDTGo to [facility] in [facility] to get a Respironics AmaraView full face mask. Change to [facility] in [place], if not able to get this mask at [facility] in [facility] n. Wear BiPAP 100% of the time asleep. documented in this encounter Progress Notes Jacky Calderon, YUMIKO - 07/26/2017 10:30 AM PDT Subjective: Patient ID: Margarita Rowley is a 51 y.o. female. HPI last office visit: 07/23/2016 date of polysomnography: 03/13/2013 at [facility] AHI: 64.2 O2%: n/a Machine type: Respironics BiPAP Auto Mask type: ResMed Quattro FX full face mask DME: [facility] [place] pressure: 16/5 cm with backup rate of 8 bpm and O2 at 5 L/min Nights using BiPAP: 179/180 % of nights >4 hours: 90.0% average usage (all nights): 7:15 average usage (nights used): 7:17 AHI: 9.2 Jessie comes in for BiPAP compliance. She continues to do well with her BiPAP usage. She is sleeping very well and does not consider sleeping without her BiPAP and oxygen. She has us ed a full face mask for several years, but it recently began causing skin irritation to her bridge of her nose. She switched to nasal pillows, but it is not comfortable for her. We d iscussed having her try a Respironics AmaraView full face mask. She may be interested in us ing [facility] [place] for her supplies. She says she has had some difficulty with gettin g supplies from [facility] in [place]. She is also napping during the day without he r BiPAP. There are times at night that the pressure is bothering her and she lifts her mask off her face for comfort. She says she then sleeps with the mask off for a few hours. We discussed the importance of wearing her CPAP 100% of the time she is asleep in order to deve lop it into a regular part of her sleep routine. I have discussed the download in detail. This shows that her sleep apnea is controlled, wi th an AHI of 9.2. It also shows that her leaks are controlled. BP 112/62 | Pulse 64 | Resp 16 | Wt 85.3 kg (188 lb) | SpO2 93% | BMI 37.97 kg/m Review of Systems Objective: Physical Exam Assessment: Problem #1: PRIMARY CENTRAL SLEEP APNEA ([id number]) This is controlled with BiPAP and oxygen at 5 L/min. Her compliance is going very well. Plan: 1. She is to continue with BiPAP indefinitely. 2. I have recommended that she work toward wearing her CPAP 100% of the time she is asleep . 3. She is to replace her nasal pillows with a Respironics AmaraView full face mask. 4. She is to touch base with her [...] | | | | | [address] [facility] | | | | | | [place] [address] | | | | | | [phone] | | | | | | | | +--------+ + + + + | 07/23/ | Office | Pulmonology | Baudilio Helen | | | 2019 | Visit | | MD Vikash [address] | | | | | | [address] | | | | | | [place] [address] | | | | | | [phone] | | | | | | | | +--------+ + + + + documented as of this encounter Visit Diagnoses + + | Diagnosis | + + | Primary central sleep apnea - Primary | + + documented in this encounter"
--- OUTSIDE RECORDS SUMMARY | ~2020-05-02 | XMS | Encounter Summary ---
Demographics + + + | Address | [address] | | | [place] [address] | + + + | Home Phone | | + + + | Preferred Language | Unknown | + + + | Marital Status | Single | + + + | Restorationist Affiliation | NRP | + + + | Race | White | + + + | Ethnic Group | Not or | + + + Author + + + | Author | [facility] | + + + | Organization | [facility] | + + + | Address | Unknown | + + + | Phone | Unavailable | + + + Support + + +---------+ + | Name | Relationship | Address | Phone | + + +---------+ + | Lidia Thibodeaux | ECON | Unknown | | + + +---------+ + Care Team Providers + +------+ + | Care Consumer Experience Consultant Name | Role | Phone | + +------+ + | Gela Trimble SUBASSEMBLIES WIRER | PCP | | + +------+ + Encounter Details +--------+ + + + + | Date | Type | Department | Care Team | Description | +--------+ + + + + | 05/17/ | Water Taxi Captain | Pulmonary & | Alexander Hays MD | Pulmonary | | 2012 | | Critical Care | [address] | hypertension (HCC) | | | | Medicine at | [facility], | (Primary Dx) | | | | [facility] | [place] [address] | | | | | [address] | [phone] | | | | | [facility] | | | | | | Pavilion, 3rd Floor | | | | | | [place], [place] | | | | | | [address] | | | | | | [phone] | | | +--------+ + + + [...]
--- OUTSIDE RECORDS SUMMARY | ~2020-05-02 | XMS | Encounter Summary ---
Demographics + + + | Address | [address] | | | [place] [address] | + + + | Home Phone | | + + + | Preferred Language | Unknown | + + + | Marital Status | Single | + + + | Yazidi Affiliation | NRP | + + + | Race | White | + + + | Ethnic Group | Not or | + + + Author + + + | Author | [facility] | + + + | Organization | [facility] | + + + | Address | Unknown | + + + | Phone | Unavailable | + + + Support + + +---------+ + | Name | Relationship | Address | Phone | + + +---------+ + | Lidia Thibodeaux | ECON | Unknown | | + + +---------+ + Care Team Providers + +------+ + | Care Corporate Human Resources Manager Name | Role | Phone | [...] Pavilion | | | | | | [address] | | | | | | [facility] | | | | | | [place], [address] [place] [address] | | | | | | [place], [place] | | | | | | [address] | | | | | | [phone] | | | +--------+ + + + [...]
--- OUTSIDE RECORDS SUMMARY | ~2020-05-02 | XMS | Encounter Summary ---
Demographics + + + | Address | [address] | | | [place] [address] | + + + | Home Phone [...] [facility] | | | and [place] | + + + | Address | Unknown | + + + | Phone | Unavailable | + + + Support + + + + + | Name | Relationship | Address | Phone | + + + + + | Projects [employer] | ECON | [phone] | | | | | Unknown | | + + + + + Care Team Providers + +------+ + | Care Recovery Specialist Name | Role | Phone | + +------+ + | Gela Trimble NP | PCP | | + +------+ + Encounter Details +--------+ + + + + | Date | Type | Department | Care Team | Description | +--------+ + + + + | 12/12/ | [facility] | [facility] | Jacky Calderon PA | | | 2013 | Encounter | MED CTR SLEEP | [address] | | | | | CENTER [address] | [place] | | | | | [place] | [address] | | | | | [address] | | | | | | [phone] | | | +--------+ + + + [...] 0 | | | | (VITAMIN D-3) 1999 | mouth Daily. | | | | [...] | | | | | | | ([facility]) | | | | | | + + + +---------+ + + | buPROPion | Take 100 mg by mouth | | 0 | | | | (WELLBUTRIN) 100 mg | 2 times daily. | | | | 6 | | tablet | | | | | | + + + +---------+ + + | [place] Starch POWD | by Does not apply [...] + + + +---------+ + + | Corwith-3 Fatty | Take by mouth. | | [...] | | | | | [place] [address] | | | | | | [phone] | | | | | | | | +--------+ + + + + | 07/23/ | Office | Pulmonology | Helen Astudillo | | 2019 | Visit | | MD Joey Suh W | | | | | | [address] [place] | | | | | | [place] [address] | | | | | | [phone] | | | | | | | | +--------+ + + + + documented as of this encounter Visit Diagnoses Not on filedocumented in this encounter"
--- OUTSIDE RECORDS SUMMARY | ~2020-05-02 | XMS | Encounter Summary ---
Demographics + + + | Address | [address] | | | [place] [address] | + + + | Home Phone [...] | [facility] | | | and [place] | + + + | Address | Unknown | + + + | Phone | Unavailable | + + + Support + + + + + | Name | Relationship | Address | Phone | + + + + + | Projects [employer] | ECON | [phone] | | | | | Unknown | | + + + + + Care Team Providers + +------+ + | Care Youth Teacher Name | Role | Phone | + +------+ + | Gela Trimble NP | PCP | | + +------+ + Reason for Visit +---------+--------+ + | Reason | Onset | Comments | | | Date | | +---------+--------+ + | Results | 12/17/ | labs | | | 2015 | | +---------+--------+ + Encounter Details +--------+ + + + + | Date | Type | Department | Care Team | Description | +--------+ + + + + | 12/17/ | Telephone | [facility] [place] | [facility], | Results (labs) | | 2014 | | PULMONARY [address] | Vera Farrar MD | | | | | [place], | | | | | | [place] [address] | | | | | | [phone] | | | +--------+ + + + [...] Telephone Encounter - Tarah Nino RN - 12/17/2014 1:49 PM PSTCalled and spoke with Suma (caregiver). Advised that Dr Lainez received Margarita's labs drawn 10/07/14 at [facility] in [place]. Per Dr Lainez the labs overall look okay. Okay per Suma.Elec tronically signed by Tarah Nino RN at 12/17/2014 1:51 PM PSTdocumented in this [facility] Plan of Treatment +--------+ + + + + | Date | Type | Specialty | Care Team | Description | +--------+ + + + + | 07/23/ | Appointment | Pulmonology | Helen Astudillo | | | 2019 | | | MD Joey Suh [address] | | | | | | [address] | | | | | | [place] [address] | | | | | | [phone] | | | | | | | | +--------+ + + + + | 07/23/ | Office | Pulmonology | Helen Astudillo | | 2019 | Visit | | MD Joey Suh [address] | | | | | | [address] | | | | | | [place] [address] | | | | | | [phone] | | | | | | | | +--------+ + + + + documented as of this encounter Visit Diagnoses Not on filedocumented in this encounter"
--- OUTSIDE RECORDS SUMMARY | ~2020-05-02 | XMS | Encounter Summary ---
Demographics + + + | Address | [address] | | | [place] [address] | + + + | Home Phone [...] | [facility] | | | and [place] | + + + | Address | Unknown | + + + | Phone | Unavailable | + + + Support + + + + + | Name | Relationship | Address | Phone | + + + + + | Projects [employer] | ECON | [phone] | | | | | Unknown | | + + + + + Care Team Providers + +------+ + | Care Engineer Process Name | Role | Phone | + [...] | | | [place] | [address] | | | | | [address] | [phone] | | | | | [phone] | | | +--------+ + + + [...] | | | | | [place] [address] | | | | | | [phone] | | | | | | | | +--------+ + + + + | 07/23/ | Office | Pulmonology | Helen Astudillo | | | 2019 | Visit | | MD Joey Suh W | | | | | | [address] | | | | | | [place] [address] | | | | | | [phone] | | | | | | | | +--------+ + + + + documented as of this encounter Visit Diagnoses Not on filedocumented in this encounter"
--- OUTSIDE RECORDS SUMMARY | ~2020-05-02 | XMS | Encounter Summary ---
Demographics + + + | Address | [address] | | | [place] [address] | + + + | Home Phone [...] + | Author | [facility] | | | and [place] | + + + | Organization | [facility] | | | and [place] | + + + | Address | Unknown | + + + | Phone | Unavailable | + + + Support + + + + + | Name | Relationship | Address | Phone | + + + + + | [employer] | ECON | [phone] | | | | | Unknown | | + + + + + Care Team Providers + +------+ + | Care Irrigation Foreman Name | Role | Phone | + [...] [place], [place] | | | | | [address] | [address] | | | | | [phone] | [phone] | | | | | | | [...] | | | | | [place] [address] | | | | | | [phone] | | | | | | | | +--------+ + + + + | 07/23/ | Office | Pulmonology | Helen Astudillo | | | 2019 | Visit | | MD Joey Suh [address] | | | | | | [address] | | | | | | [place] [address] | | | | | | [phone] | | | | | | | | +--------+ + + + + documented as of this encounter Visit Diagnoses Not on filedocumented in this encounter"
--- OUTSIDE RECORDS SUMMARY | ~2020-05-02 | XMS | Encounter Summary ---
Demographics + + + | Address | [address] | | | [place] [address] | + + + | Home Phone [...] + + + | Author | [facility] | | | and [place] | + + + | Organization | [facility] | | | and [place] | + + + | Address | Unknown | + + + | Phone | Unavailable | + + + Support + + + + + | Name | Relationship | Address | Phone | + + + + + | [employer] | ECON | [phone] | | | | | Unknown | | + + + + + Care Team Providers + +------+ + | Care Referral Specialist Name | Role | Phone | + +------+ + | Yuni Shrestha | PCP | | + +------+ + Reason for Visit + +--------+ + | Reason | Onset | Comments | | | Date | | + +--------+ + | Medication Refill | 12/22/ | | | | 2015 | | + +--------+ + Encounter Details +--------+--------+ + + + | Date | Type | Department | Care Team | Description | +--------+--------+ + + + | 12/22/ | Refill | [facility] [place] | [facility], | Medication Refill | | 2016 | | PULMONARY [address] | Vera Farrar MD | | | | | [place], | | | | | | [place] [address] | | | | | | [phone] | | | +--------+--------+ + + + [...] | | | | | [place] [address] | | | | | | [phone] | | | | | | | | +--------+ + + + + | 07/23/ | Office | Pulmonology | Helen Astudillo | | | 2019 | Visit | | MD Joey Suh [address] | | | | | | [address] | | | | | | [place] [address] | | | | | | [phone] | | | | | | | | +--------+ + + + + documented as of this encounter Visit Diagnoses Not on filedocumented in this encounter"
--- OUTSIDE RECORDS SUMMARY | ~2020-05-02 | XMS | Encounter Summary ---
Demographics + + + | Address | [address] | | | [place] [address] | + + + | Home Phone [...] Organization | [facility] | | | and [place] | + + + | Address | Unknown | + + + | Phone | Unavailable | + + + Support + + + + + | Name | Relationship | Address | Phone | + + + + + | [employer] | ECON | [phone] | | | | | Unknown | | + + + + + Care Team Providers + +------+ + | Care Encyclopedia Research Worker Name | Role | Phone | + +------+ + | Yuni Shrestha | PCP | | + +------+ + Encounter Details +--------+ + + + + | Date | Type | Department | Care Team | Description | +--------+ + + + + | 06/11/ | Abstract | [facility] [place] | [facility], | | | 2016 | | GASTROENTEROLOGY | BRITTANY Maddox [address] | | | | | [address] [place] | [address] | | | | | [address] [place], [place] | [place] | | | | | [address] | [address] | | | | | [phone] | | | +--------+ + + + [...] | | | | | [place] [address] | | | | | | [phone] | | | | | | | | +--------+ + + + + | 07/23/ | Office | Pulmonology | Helen Astudillo | | | 2020 | Visit | | MD Joey Suh [address] | | | | | | [address] [place] | | | | | | [place] [address] | | | | | | [phone] | | | | | | | | +--------+ + + + + documented as of this encounter Visit Diagnoses Not on filedocumented in this encounter"
--- OUTSIDE RECORDS SUMMARY | ~2020-05-02 | XMS | Encounter Summary ---
Demographics + + + | Address | [address] | | | [place] [address] | + + + | Home Phone | | + + + | Preferred Language | Unknown | + + + | Marital Status | Single | + + + | Amish Affiliation | 1009 | + + + | Race | Unknown | + + + | Ethnic Group | Unknown | + + + Author + + + | Author | [facility] | | | and [place] | + + + | Organization | [facility] | | | and [place] | + + + | Address | Unknown | + + + | Phone | Unavailable | + + + Support + + + + + | Name | Relationship | Address | Phone | + + + + + | [employer] | ECON | [phone] | | | | | Unknown | | + + + + + Care Team Providers + +------+ + | Care Clinical Audiologist Name | Role | Phone | + [...] + | 08/29/ | Telephone | [facility] [place] | Saharaenstein, | Results (nocturnal | | 2014 | | PULMONARY [address] | Vera Farrar MD | oximetry) | | | | [place], | | | | | | [place] [address] | | | | | | [phone] | | | +--------+ + + + [...] Miscellaneous Notes Telephone Encounter - Tarah Nino, RN - 08/29/2015 11:15 AM PDTCalled Marry [...] | | | | | [place] [address] | | | | | | [phone] | | | | | | | | +--------+ + + + + | 07/23/ | Office | Pulmonology | Helen Astudillo | | | 2019 | Visit | | MD Vikash [address] | | | | | | [address] [place] | | | | | | [place] [address] | | | | | | [phone] | | | | | | | [...]
--- OUTSIDE RECORDS SUMMARY | ~2020-05-02 | XMS | Encounter Summary ---
Demographics + + + | Address | [address] | | | [place] [address] | + + + | Home Phone [...] | Organization | [facility] | | | and [place] | + + + | Address | Unknown | + + + | Phone | Unavailable | + + + Support + + + + + | Name | Relationship | Address | Phone | + + + + + | [employer] | ECON | [phone] | | | | | Unknown | | + + + + + Care Team Providers + +------+ + | Care Podiatric Surgeon Name | Role | Phone | + +------+ + | Yuni Shrestha | PCP | | + +------+ + Reason for Visit + +--------+ + | Reason | Onset | Comments | | | Date | | + +--------+ + | Medication Refill | 01/18/ | | | | 2015 | | + +--------+ + Encounter Details +--------+--------+ + + + | Date | Type | Department | Care Team | Description | +--------+--------+ + + + | 01/18/ | Refill | [facility] [place] | Fatou, | Medication Refill | | 2016 | | PULMONARY [address] | Vera Farrar MD | | | | | [place], | | | | | | [place] [address] | | | | | | [phone] | | | +--------+--------+ + + + [...] | | | | | [place] [address] | | | | | | [phone] | | | | | | | | +--------+ + + + + | 07/23/ | Office | Pulmonology | Helen Astudillo | | | 2019 | Visit | | MD [address] | | | | | | [address] [address] | | | | | | [place] [address] | | | | | | [phone] | | | | | | | | +--------+ + + + + documented as of this encounter Visit Diagnoses Not on filedocumented in this encounter"
--- OUTSIDE RECORDS SUMMARY | ~2020-05-02 | XMS | Encounter Summary ---
Demographics + + + | Address | [address] | | | [place] [address] | + + + | Home Phone [...] | [facility] | | | and [place] | + + + | Organization | [facility] | | | and [place] | + + + | Address | Unknown | + + + | Phone | Unavailable | + + + Support + + + + + | Name | Relationship | Address | Phone | + + + + + | [employer] | ECON | [id number] | | | | | Unknown | | + + + + + Care Team Providers + +------+ + | Care Landscaping Supervisor Name | Role | Phone | [...] + + | 06/14/ | Office | [facility] | Jacky Calderon PA | Primary central | | 2018 | Visit | SLEEP DISORDER [address] | [address] | sleep apnea (Primary | | | | [address] [place] | [place] | Dx) | | | | [place] [address] | [address] | | | | | [phone] | | | +--------+---------+ + + + [...] Go to [facility] to get: -Respironics AmaraView full face mask [...] visit: 07/26/2017 date of polysomnography: 03/13/[address] [facility] AHI: 64.2 O2%: n/a Machine type: Respironics BiPAP Auto Mask type: ResMed Quattro FX full face mask DME: [facility] in [place] pressure: 16/5 cm with backup rate of [...] full face mask. She may consider using [facility], if [facility] in [place] does not get her the correct mask. [...] Assessment: Problem #1: PRIMARY CENTRAL SLEEP APNEA ([id number]-D37.31) This is controlled with BiPAP and oxygen [...] | | | | | [place] [address] | | | | | | [phone] | | | | | | | | +--------+ + + + + | 07/23/ | Office | Pulmonology | Helen Astudillo | | | 2019 | Visit | | MD [address] | | | | | | [address] | | | | | | [place] [address] | | | | | | [phone] | | | | | | | | +--------+ + + + + documented as of this encounter Visit Diagnoses + + | Diagnosis | + + | Primary central sleep apnea - Primary | + + documented in this encounter"
--- OUTSIDE RECORDS SUMMARY | ~2020-05-02 | XMS | Encounter Summary ---
Demographics + + + | Address | [address] | | | [place] [address] | + + + | Home Phone | | + + + | Preferred Language | Unknown | + + + | Marital Status | Single | + + + | Pentecostalism Affiliation | NRP | + + + [...] Team Providers + +------+ + | Care Filler Blender Name | Role | Phone | [...] | | | | | n | [facility] | | | | | | [place] [address] | | | | | | [phone] | | | +--------+ + + + [...]
--- OUTSIDE RECORDS SUMMARY | ~2020-05-02 | XMS | Encounter Summary ---
Demographics + + + | Address | [address] | | | [place] [address] | + + + | Home Phone [...] Organization | [facility] | | | and [place] | + + + | Address | Unknown | + + + | Phone | Unavailable | + + + Support + + + + + | Name | Relationship | Address | Phone | + + + + + | [employer] | ECON | [id number] | | | | | Unknown | | + + + + + Care Team Providers + +------+ + | Care Sports Equipment Supervisor Name | Role | Phone | + +------+ + PCP | Unavailable | + +------+ + Encounter Details +--------+ + + + + | Date | Type | Department | Care Team | Description | +--------+ + + + + | 04/11/ | [facility] | [place] | Edwar Taveras | | | 2011 | Encounter | HOSPITAL EMERGENCY | MD [address] | | | | | CENTER [address] | [facility] | | | | | [address] [place] | [place] [address] | | | | | [address] | [phone] | | | | | [phone] | | | +--------+ + + + [...] | | | | | [place] [address] | | | | | | [phone] | | | | | | | | +--------+ + + + + | 07/23/ | Office | Pulmonology | Helen Astudillo | | | 2019 | Visit | | MD [address] | | | | | | [address] [address] [place] | | | | | | [place] [address] | | | | | | [phone] | | | | | | | | +--------+ + + + + documented as of this encounter Visit Diagnoses Not on filedocumented in this encounter"
--- OUTSIDE RECORDS SUMMARY | ~2020-05-02 | XMS | Clinical Summary ---
Demographics + + + | Address | [address] | | | [place] [address] | + + + | Home Phone | | + + + | Preferred Language | Unknown | + + + | Marital Status | Single | + + + | Congregational Affiliation | NRP | + + + [...] Team Providers + +------+ + | Care Ophthalmology Technician Name | Role | Phone | + +------+ + | Yuni Shrestha | PCP | | + +------+ + Source Comments SARAH is fully live on both EpicCare Ambulatory and EpicCare InPatient.[facility] Allergies + + + + [...] e | + + + +---------+------+------+-------+ | Hoffman-3 Fatty | Take 1 Cap by mouth [...] | + +--------+ +--------+ + +--------+ | TRACK LAYING SUPERVISOR MEDICAID | TRACK LAYING SUPERVISOR | xxxxxxxx | Effect | | | [...] PLUS | | 12-Pre | 6 | [address]41 | id | | | OPEN | | sent | | [place] | | | | CARD | | | | [address] | | + +--------+ +--------+ + +--------+ [...] | 1965 | [phone] | [place] [address] | | | jammie | | | 0 (Home) | | + +--------+ +--------+ + + | Margarita Rowley May | Person | Self | [birth year] | [address] | | | al/Fam | | 1965 | [phone] | [place] [address] | | | jammie | | | [...]
--- OUTSIDE RECORDS SUMMARY | ~2020-05-02 | XMS | Encounter Summary ---
Demographics + + + | Address | [address] | | | [place] [address] | + + + | Home Phone [...] + + | Organization | [facility] | | | and [place] | + + + | Address | Unknown | + + + | Phone | Unavailable | + + + Support + + + + + | Name | Relationship | Address | Phone | + + + + + | [employer] | ECON | [phone] | | | | | Unknown | | + + + + + Care Team Providers + +------+ + | Care Overhead Crane Operator Name | Role | Phone | + +------+ + | No, Physician | PCP | Unavailable | + +------+ + Reason for Visit +--------+--------+ + | Reason | Onset | Comments | | | Date | | +--------+--------+ + | Other | 03/14/ | confirming O2 bleed in to BIPAP | | | 2015 | | +--------+--------+ + Encounter Details +--------+ + + + + | Date | Type | Department | Care Team | Description | +--------+ + + + + | 03/14/ | Telephone | [facility] [place] | [place], | Other (confirming O2 | | 2014 | | PULMONARY [address] | Vera Farrar MD | bleed in to BIPAP) | | | | [place], | | | | | | [place] [address] | | | | | | [phone] | | | +--------+ + + + [...] PM PDTFaxed this message to Kamala at [phone]. P M PDTTelephone Encounter - Vera Lainez MD - 03/14/2015 12:34 PM PDTI was told yes terday she was on 4L and it had been changed by the sleep center. They should therefore do w hat the sleep center had told them to do previously. elephone Encounter - Tarah Nino RN - 11:44 AM PDTStefanie called from [facility] to confirm that Margarita is to [...] | | | | | [place] [address] | | | | | | [phone] | | | | | | | | +--------+ + + + + | 07/23/ | Office | Pulmonology | Helen Astudillo | | | 2019 | Visit | | MD [address] | | | | | | [address] [place] | | | | | | [place] [address] | | | | | | [phone] | | | | | | | | +--------+ + + + + documented as of this encounter Visit Diagnoses Not on filedocumented in this encounter
--- OUTSIDE RECORDS SUMMARY | ~2020-05-02 | XMS | Encounter Summary ---
Demographics + + + | Address | [address] | | | [place] [address] | + + + | Home Phone [...] Organization | [facility] | | | and [place] | + + + | Address | Unknown | + + + | Phone | Unavailable | + + + Support + + + + + | Name | Relationship | Address | Phone | + + + + + | [employer] | ECON | [phone] | | | | | Unknown | | + + + + + Care Team Providers + +------+ + | Care Box Press Operator Name | Role | Phone [...] | | | | | obstructive | [address] | [address] | | | | | pulmonary | [address] | [place], [place] | | | | | disease, | [place], | [address] | | | | | unspecified | [place] [address] | Phone: | | | | | (HCC) | Phone: | [phone] | | | | | Procedures | [phone] | Fax: | | | | | F/U APPT DR | Fax: | [phone] | | | | | SCOUT | [phone] | | | | | | JERSON | | | | | | | 02/21/18 | | | +--------+--------+ + + + + Encounter Details +--------+---------+ + + + | Date | Type | Department | Care Team | Description | +--------+---------+ + + + | 02/21/ | Office | [facility] | Scout Arthur, | Pulmonary | | 2018 | Visit | PULMONARY [address] | MD [address] | hypertension, | | | | [place], | [place] [address] | unspecified (HCC) | | | | [place] [address] | [phone] | (Primary Dx) | | | | [phone] | | | +--------+---------+ + + + [...] had been diagnosed prior to that at [facility] in [place] by Dr. Lashae Rivera whose excellent notes [...] She is not taking spironolactone. See the [facility] ed section for medications. She had [...] from in-home medical. We spent 25 minutes nnov-ky-keaj, at least half in counseling. Word processing [...] | | | | | | [place] [address] | | | | | | [phone] | | | | | | | | +--------+ + + + + | 07/23/ | Office | Pulmonology | Helen Astudillo | | | 2019 | Visit | | MD [address] | | | | | | [address] [place] | | | | | | [place] [address] | | | | | | [phone] | | | | | | | | +--------+ + + + + documented as of this encounter Visit Diagnoses + + | Diagnosis | + + | Pulmonary hypertension, unspecified (HCC) - Primary | + + documented in this encounter
--- OUTSIDE RECORDS SUMMARY | ~2020-05-02 | XMS | Encounter Summary ---
Demographics + + + | Address | [address] | | | [place] [address] | + + + | Home Phone [...] Organization | [facility] | | | and [place] | + + + | Address | Unknown | + + + | Phone | Unavailable | + + + Support + + + + + | Name | Relationship | Address | Phone | + + + + + | [employer] | ECON | [id number] | | | | | Unknown | | + + + + + Care Team Providers + +------+ + | Care Slip Operator Name | Role | Phone | + +------+ + | Yuni Shrestha | PCP | | + +------+ + Reason for Visit +---------+--------+ + | Reason | Onset | Comments | | | Date | | +---------+--------+ + | Results | 07/30/ | | | | 2014 | | +---------+--------+ + Encounter Details +--------+ + + + + | Date | Type | Department | Care Team | Description | +--------+ + + + + | 07/30/ | Telephone | [facility] | [place], | Results | | 2014 | | PULMONARY [address] | Vera Farrar MD | | | | | [place], | | | | | | [place] [address] | | | | | | [phone] | | | +--------+ + + + [...] this encounter Miscellaneous Notes Telephone Encounter - Jai Noriega RN - 07/30/2015 2:09 PM PDTNotified caregiver Buck daniel at [facility] (patient's home number) that Dr Lainez reviewed 07/09/15 labs a nd test is negative but we need to continue monthly checks for documentation for m edication and also that chest x ray is stable that was done 07/10/15 at [facility] signed by Jia Noriega RN at 07/30/2015 2:11 PM PDTdocumented in this encounte r Plan of Treatment +--------+ + + + + | Date | Type | Specialty | Care Team | Description | +--------+ + + + + | 07/23/ | Appointment | Pulmonology | Helen Astudillo | | | 2019 | | | MD Vikash [address] | | | | | | [place] [address] [place] | | | | | | [place] [address] | | | | | | [phone] | | | | | | | | +--------+ + + + + | 07/23/ | Office | Pulmonology | Helen Astudillo | | 2019 | Visit | | MD Vikash [address] | | | | | | [address] [place] | | | | | | [place] [address] | | | | | | [phone] | | | | | | | | +--------+ + + + + documented as of this encounter Visit Diagnoses Not on filedocumented in this encounter"
--- OUTSIDE RECORDS SUMMARY | ~2020-05-02 | XMS | Encounter Summary ---
Demographics + + + | Address | [address] | | | [place] [address] | + + + | Home Phone [...] + | Organization | [facility] | | | and [place] | + + + | Address | Unknown | + + + | Phone | Unavailable | + + + Support + + + + + | Name | Relationship | Address | Phone | + + + + + | [employer] | ECON | [phone] | | | | | Unknown | | + + + + + Care Team Providers + +------+ + | Care Special Education Tutor Name | Role | Phone | + [...] Farrar MD | | | | | [place], | | | | | | [place] [address] | | | | | | [phone] | | | +--------+ + + + [...] 2019 | | | MD Joey Suh | | | | | | [address] | | | | | | [place] [address] | | | | | | [phone] | | | | | | | | +--------+ + + + + | 07/23/ | Office | Pulmonology | Helen Astudillo | | 2019 | Visit | | MD Joey Suh | | | | | | [address] | | | | | | [place] [address] | | | | | | [phone] | | | | | | | | +--------+ + + + + documented as of this encounter Visit Diagnoses Not on filedocumented in this encounter"
--- OUTSIDE RECORDS SUMMARY | ~2020-05-02 | XMS | Encounter Summary ---
Demographics + + + | Address | [address] | | | [place] [address] | + + + | Home Phone [...] | Organization | [facility] | | | and [place] | + + + | Address | Unknown | + + + | Phone | Unavailable | + + + Support + + + + + | Name | Relationship | Address | Phone | + + + + + | [employer] | ECON | [id number] | | | | | Unknown | | + + + + + Care Team Providers + +------+ + | Care Tunnel Inspector Name | Role | Phone | [...] | Telephone | [facility] [place] | [facility], | Referral | | 2015 | | GASTROENTEROLOGY | Varsha BRITTANY [address] | | | | | [address] [place] | [address] | | | | | [address] [place], [place] | [place], [place] | | | | | [address] | [address] | | | | | [phone] | | | +--------+ + + + [...] 07/06/2016 11:45 AM PDTSpoke with Martha davila [facility] agustín who is one of patient's caretakers at [phone]. Explained that PCP will need to ref er patient to [facility]ology to see if it is safe to proceed with egd/colon, since Dr. Angel Luis lam is not taking over care of Dr. Lainez's patients. Martha verbalized jenifer gaona, and will contact PCP for referral to [facility]. Asked that MD she is referred to let Natividadkaren macario cornelio if patient is safe to proceed with GI procedure. Asked PSR to fix phone numbers, since cell number listed is one of [employer] cell number; replace with [phone]. Electronically signed by Katheryn Garber RN at [...] or referring patient to Pulmo nology at [facility] for evaluation. elephone Encounter - Katheryn Garber [...] | | | | | [place] [address] | | | | | | [phone] | | | | | | | | +--------+ + + + + | 07/23/ | Office | Pulmonology | Helen Astudillo | | | 2019 | Visit | | MD Joey Suh | | | | | | [address] [place] | | | | | | [place] [address] | | | | | | [phone] | | | | | | | | +--------+ + + + + documented as of this encounter Visit Diagnoses Not on filedocumented in this encounter"
--- OUTSIDE RECORDS SUMMARY | ~2020-05-02 | XMS | Encounter Summary ---
Demographics + + + | Address | [address] | | | [place] [address] | + + + | Home Phone [...] + + + | Author | [facility] | | | and [place] | + + + | Organization | [facility] | | | and [place] | + + + | Address | Unknown | + + + | Phone | Unavailable | + + + Support + + + + + | Name | Relationship | Address | Phone | + + + + + | [employer] | ECON | [phone] | | | | | Unknown | | + + + + + Care Team Providers + +------+ + | Care Clinical Support Nurse Name | Role | Phone | + +------+ + | Gela Tirmble NP | PCP | | + +------+ [...] MD | | | | | [place], | | | | | | [place] [address] | | | | | | [phone] | | | +--------+ + + + [...] She is also being sent to [facility] to work on mask fitting with [...] | | | | | [place] [address] | | | | | | [phone] | | | | | | | | +--------+ + + + + | 07/23/ | Office | Pulmonology | Helen Astudillo | | | 2019 | Visit | | MD [address] | | | | | | [address] | | | | | | [place] [address] | | | | | | [phone] | | | | | | | | +--------+ + + + + documented as of this encounter Visit Diagnoses Not on filedocumented in this encounter"
--- OUTSIDE RECORDS SUMMARY | ~2020-05-02 | XMS | Encounter Summary ---
Demographics + + + | Address | [address] | | | [place] [address] | + + + | Home Phone [...] | Organization | [facility] | | | and [place] | + + + | Address | Unknown | + + + | Phone | Unavailable | + + + Support + + + + + | Name | Relationship | Address | Phone | + + + + + | [employer] | ECON | [phone] | | | | | Unknown | | + + + + + Care Team Providers + +------+ + | Care Screen Printing Machine Loader Unloader Name | Role | Phone | [...] [address] | | | | | [address] | [address] | | | | | [place], [place] | [place], [place] | | | | | [address] | [address] | | | | | [phone] | [phone] | | | | | | | [...] | | | | | [place] [address] | | | | | | [phone] | | | | | | | | +--------+ + + + + | 07/23/ | Office | Pulmonology | Helen Astudillo | | | 2019 | Visit | | MD [address] | | | | | | [address] | | | | | | [place] [address] | | | | | | [phone] | | | | | | | | +--------+ + + + + documented as of this encounter Visit Diagnoses Not on filedocumented in this encounter"
--- OUTSIDE RECORDS SUMMARY | ~2020-05-02 | XMS | Encounter Summary ---
Demographics + + + | Address | [address] | | | [place] [address] | + + + | Home Phone [...] Organization | [facility] | | | and [place] | + + + | Address | Unknown | + + + | Phone | Unavailable | + + + Support + + + + + | Name | Relationship | Address | Phone | + + + + + | [employer] | E[place] | [id number] | | | | | Unknown | | + + + + + Care Team Providers + +------+ + | Care Engine Assembly Supervisor Name | Role | Phone | + +------+ + | Gela Trimble NP | PCP | | + +------+ + Encounter Details +--------+ + + + + | Date | Type | Department | Care Team | Description | +--------+ + + + + | 07/04/ | Hospital | [facility] | [place], | Pulmonary | | 2012 | Encounter | MED CTR GENERIC OP | Vera Farrar MD | hypertension (HCC) | | | | CONV DEPT [address] | | | | | | [place], | | | | | | [place] [address] | | | | | | [phone] | | | +--------+ + + + [...] | + + + +---------+--------+ + | [place]-3 Fatty | Take by mouth. | | [...] | | | | | | [place] [address] | | | | | | [phone] | | | | | | | | +--------+ + + + + | 07/23/ | Office | Pulmonology | Helen Astudillo | | | 2019 | Visit | | MD [address] | | | | | | [address] | | | | | | [place] [address] | | | | | | [phone] | | | | | | | | +--------+ + + + + + +------+--------+ + + [...] 07/04/2013 | + +------+--------+ + + | ACCT EXEC Ab, IgG | Lab | Routin | Pulmonary | 1 Occurrences | | | | e | hypertension (HCC) | starting 07/04/2013 | + +------+--------+ + + | Rowley Ab, IgG | [...] EXTRACTABLE NUCLEAR | Routin | 07/04/2013 | Pulmonary | | | AUTOANTIBODIES | e | 4:21 PM | hypertension (HCC) | | | | | PDT | [...] AB, IGG | Routin | 07/04/2013 | Pulmonary | | | | e | 4:21 PM | hypertension (HCC) | | | | | PDT | [...] DNA DOUBLE-STRANDED | Routin | 07/04/2013 | Pulmonary | | | AB, IGG | e | 4:21 PM | hypertension (HCC) | | | | | PDT | [...] AB, IGG, | Routin | 07/04/2013 | Pulmonary | | | SERUM | e | 4:21 PM | hypertension (HCC) | | | | | PDT | [...] AB, IGG, | Routin | 07/04/2013 | Pulmonary | | | SERUM | e | 4:21 PM | hypertension (HCC) | | | | | PDT | [...] | | | | | | Performed: [facility], [address] | | | | | [address], [place] | | | | | | [address] CLIA: | | | | | | [id number] | | | | + + + + + + + + | Specimen | + + | | + + + + + + + | Performing | Address | City/State/Zipcode | Phone Number | | Organization | | | | + + + + + | [facility] | [address] | [place] | [phone] | | [facility] | | [address] | | | - LABORATORY | | | | + + + + + | [facility] | [address] | [place], [place] | | | [facility] | | [address], [facility] | | | - LABORATORY | [...] | autoantibod | Testing Performed: | | [facility] | | | y IgG | [facility], [address], | | MEDICAL | | | | [place] [address] | | CENTER - | | | | CLIA: [id number] | | LABORATORY | | + + + + + + + + | Specimen | + + | | + + + + + + + | Performing | Address | City/State/Zipcode | Phone Number | | Organization | | | | + + + + + | [facility] | [address] | [place] | [phone] | | [facility] | | [address] | | | - LABORATORY | | | | + + + + + | [facility] | [address] | [place], [place] | | | [facility] | | [address] | | | - LABORATORY | [...] | Autoantibod | Testing Performed: | | [facility] | | | y | [facility], [address], | | MEDICAL | | | | [place] [address] | | CENTER - | | | | CLIA: [id number] | | LABORATORY | | + + + + + + + + | Specimen | + + | | + + + + + + + | Performing | Address | City/State/Zipcode | Phone Number | | Organization | | | | + + + + + | [facility] | [address] | [place] | [phone] | | [facility] | | [address] | | | - LABORATORY | | | | + + + + + | [facility] | [address] | [place] | | | [facility] | | [address], [facility] | | | - LABORATORY | [...] | <0.2Comment: Negative | <1.0 AI | [facility] | | | Autoantibod | Testing Performed: | | [facility] | | | y | [facility], [address], | | MEDICAL | | | | [place] [address] | | CENTER - | | | | CLIA: [id number] | | LABORATORY | | + + + + + + + + | Specimen | + + | | + + + + + + + | Performing | Address | City/State/Zipcode | Phone Number | | Organization | | | | + + + + + | [facility] | [address] | [place], [place] | [phone] | | [facility] | | [address] | | | - LABORATORY | | | | + + + + + | [facility] | [address] | [place], [place] | | | [facility] | | [address] [place] [address] | | | - LABORATORY | | [...] | Equal to or <4 | | [facility] | | | y | Testing Performed: | | MEDICAL | | | | [facility], [address], | | CENTER - | | | | [place] [address] | | LABORATORY | | | | CLIA: [id number] | | | | + + + + + + + + | Specimen | + + | | + + + + + + + | Performing | Address | City/State/Zipcode | Phone Number | | Organization | | | | + + + + + | [facility] | [address] | [place], [place] | [phone] | | [facility] | | [address] | | | - LABORATORY | | | | + + + + + | [facility] | [address] | [place], [place] | | | [facility] | | [address], [facility] | | | - LABORATORY | [...] | | MEDICAL | | | | [place] [address] | | CENTER - | | | | CLIA: [id number] | | LABORATORY | | + + + + + + | ACCT EXEC | 0.4Comment: Negative | <1.0 AI | [facility] | | | Autoantibod | Testing Performed: | | [facility] | | | y | [facility], [address], | | MEDICAL | | | | [place] [address] | | CENTER - | | | | CLIA: [id number] | | LABORATORY | | + + + + + + | SMRNP | <0.2Comment: Negative | <1.0 AI | [facility] | | | Autoantibod | Testing Performed: | | [facility] | | | y | [facility], [address], | | MEDICAL | | | | [place] [address] | | CENTER - | | | | CLIA: [id number] | | LABORATORY | | + + + + + + + + | Specimen | + + | | + + + + + + + | Performing | Address | City/State/Zipcode | Phone Number | | Organization | | | | + + + + + | [facility] | [address] | [place], [place] | [phone] | | [facility] | | [address] | | | - LABORATORY | | | | + + + + + | [facility] | [address] | [place], [place] | | | [facility] | | [id number] [place] [address] | | | - LABORATORY | | | | + + + + + Aldolase (07/04/2013 4:21 PM PDT) + + + + + + | Component | Value | Ref Range | Performed | Pathologist | | | | | At | Signature | + + + + + + | Aldolase | 4.1Comment: REFERENCE | 1.5 - 8.1 U/L | [facility] | | | | INTERVAL: Aldolase | | [facility] | | | | Access complete set of | | MEDICAL | | | | age- and/or | | CENTER - | | | | gender-specific | | LABORATORY | | | | reference intervals | | | | | | for this test in the | | | | | | [facility] Test | | | | | | Directory (Radius). | | | | | | Testing Performed: | | | | | | [facility], [address], | | | | | | [place], [place] | | | | | | [address] CLIA: | | | | | | [id number] | | | | + + + + + + + + | Specimen | + + | | + + + + + + + | Performing | Address | City/State/Zipcode | Phone Number | | Organization | | | | + + + + + | [facility] | [address] | [place], [place] | [phone] | | [facility] | | [address] | | | - LABORATORY | | | | + + + + + | [facility] | [address] | [place], [place] | | | [facility] | | [address] [place] [address] | | | - LABORATORY | | [...] | Performed: [facility], [address] | | [facility] | | | | [address] [place], [place] | | MEDICAL | | | | [address] CLIA: [id number] | | CENTER - | | | | | | LABORATORY | | + + + + + + + + | Specimen | + + | | + + + + + + + | Performing | Address | City/State/Zipcode | Phone Number | | Organization | | | | + + + + + | [facility] | [address] | [place], [place] | [phone] | | [facility] | | [address] | | | - LABORATORY | | | | + + + + + | [facility] | [address] | [place], [place] | | | [facility] | | [address] | | | - LABORATORY | | | | + + + + + CK Total (07/04/2013 4:21 PM PDT) + +-------+ + + + | Component | Value | Ref Range | Performed | Pathologist | | | | | At | Signature | + +-------+ + + + | CK TOTAL | 33 | 22 - 269 IU/L | [facility] | | | | | | [facility] [address] | [place] | [phone] | | [facility] | | [address] | | | - LABORATORY | | | | + + + + + | [facility] | [address] | [place], [place] | | | [facility] | | [address], [facility] | | | - LABORATORY | [...] [facility] | | | FACTOR | Performed: [facility], [address] | | [place] | | | | [place] [address] [place] | | MEDICAL | | | | [id number]: [id number] | | CENTER - | | | [...] + | [facility] | [address] | [place], [place] | [phone] | | [facility] | | [address] | | | - LABORATORY | | | | + + + + + | [facility] | [address] | [place], [place] | | | [facility] | | [id number] [place] [address] | | | - LABORATORY | | [...] + | [facility] | [address] | [place] | [phone] | | [facility] | | [address] | | | - LABORATORY | | | | + + + + + | [facility] | [address] | [place], [place] | | | [facility] | | [id number] | | | - LABORATORY | | | | + + + + + documented in this encounter Visit Diagnoses + + | Diagnosis | + + | Pulmonary hypertension (HCC) Other chronic pulmonary heart diseases | + + documented in this encounter"
--- OUTSIDE RECORDS SUMMARY | ~2020-05-02 | XMS | Encounter Summary ---
Demographics + + + | Address | [address] | | | [place] [address] | + + + | Home Phone [...] | Organization | [facility] | | | and [place] | + + + | Address | Unknown | + + + | Phone | Unavailable | + + + Support + + + + + | Name | Relationship | Address | Phone | + + + + + | [employer] | ECON | [id number] | | | | | Unknown | | + + + + + Care Team Providers + +------+ + | Care Log Roller Name | Role | Phone | + [...] | [address] | [place] [address] | | | | | [place] | [phone] | | | | | [address] | | | | | | [phone] | Shady Mcdonald | | | | | | MD [address] | | | | | | [place], [place] | | | | | | [address] | | | | | | [phone] | | | | | | | [...] | | | | | [place] [address] | | | | | | [phone] | | | | | | | | +--------+ + + + + | 07/23/ | Office | Pulmonology | Helen Astudillo | | | 2019 | Visit | | MD [address] | | | | | | [address] | | | | | | [place] [address] | | | | | | [phone] | | | | | | | | +--------+ + + + + documented as of this encounter Visit Diagnoses Not on filedocumented in this encounter"
--- OUTSIDE RECORDS SUMMARY | ~2020-05-02 | XMS | Encounter Summary ---
Demographics + + + | Address | [address] | | | [place] [address] | + + + | Home Phone [...] | [facility] | | | and [place] | + + + | Address | Unknown | + + + | Phone | Unavailable | + + + Support + + + + + | Name | Relationship | Address | Phone | + + + + + | [employer] | ECON | [id number] | | | | | Unknown | | + + + + + Care Team Providers + +------+ + | Care Core Rescuer Name | Role | Phone | + +------+ + | Gela Trimble NP | PCP | | + +------+ + Reason for Visit +--------+--------+ + | Reason | Onset | Comments | | | Date | | +--------+--------+ + | Other | 01/07/ | | | | 2014 | | +--------+--------+ + Encounter Details +--------+ + + + + | Date | Type | Department | Care Team | Description | +--------+ + + + + | 01/07/ | Telephone | [facility] [place] | [place], | Other | | 2014 | | PULMONARY [address] | Vera Farrar MD | | | | | [place], | | | | | | [place] [address] | | | | | | [phone] | | | +--------+ + + + [...] Telephone Encounter - Jia Noriega RN - 01/07/2014 3:12 PM PDTDenise, caregiver at [facility] facility where patient lives, calls to confirm oxygen order. I told her the orders w ere confirmed with Suma at [facility] (her boss) on 12/27/13. She also had questions regar ding the oxygen equipment. I directed her to call [facility] and have them re view Jacky Liu's orders from 12/26/13 visit and also to clarify the equipment function w ith them. She said she will do that now. Electronically signed by Jia Noriega RN at 0 01/07/2014 3:15 PM PDTdocumented in this encounter Plan of [...] | | | | | [place] [address] | | | | | | [phone] | | | | | | | | +--------+ + + + + | 07/23/ | Office | Pulmonology | Helen Astudillo | | | 2019 | Visit | | MD [address] | | | | | | [address] | | | | | | [place] [address] | | | | | | [phone] | | | | | | | | +--------+ + + + + documented as of this encounter Visit Diagnoses Not on filedocumented in this encounter"
--- OUTSIDE RECORDS SUMMARY | ~2020-05-02 | XMS | Encounter Summary ---
Demographics + + + | Address | [address] | | | [place] [address] | + + + | Home Phone | | + + + | Preferred Language | Unknown | + + + | Marital Status | Single | + + + | Lutheran Affiliation | NRP | + + + [...] Team Providers + +------+ + | Care Press Writer Name | Role | Phone | + +------+ + | Gela Trimble INTEGRITY ASSESSOR | PCP | | + +------+ + [...] | | | | | | | [address] | | | | | | | [address]z | | | | | | | Mushtaq Mailcode: | | | | | | | [address] [facility] | | | | | | | Hospital | | | | | | | [place], [place] | | | | | | | [address] | | | | | | | Phone: | | | | | | | [phone] | | | | | | | Fax: | | | | | | | [phone] | +--------+--------+ + + + + Encounter Details +--------+ + + + + | Date | Type | Department | Care Team | Description | +--------+ + + + + | 05/07/ | Results/Int | Pulmonary Function | | Unspecified asthma | | 2012 | erpretation | Lab at [facility] [address] | | (Primary Dx) | | | | [address] | | | | | | [facility] | | | | | | [place], [place] | | | | | | [address] | | | | | | [phone] | | | +--------+ + + + [...] | + +--------+ + + + | AL SPIROMETRY TEST | Routin | 05/08/2013 | [...]
--- OUTSIDE RECORDS SUMMARY | ~2020-05-02 | XMS | Encounter Summary ---
Demographics + + + | Address | [address] | | | [place] [address] | + + + | Home Phone [...] Organization | [facility] | | | and [place] | + + + | Address | Unknown | + + + | Phone | Unavailable | + + + Support + + + + + | Name | Relationship | Address | Phone | + + + + + | [employer] | ECON | [id number] | | | | | Unknown | | + + + + + Care Team Providers + +------+ + | Care Airline Managerial Supervisor Name | Role | Phone | [...] | hypertension (HCC) | | | | [place], | | (Primary Dx); | | | | [place] [address] | | Obstructive sleep | | | | [phone] | | apnea; Hypoxemia; | | | | | | COPD (chronic | | | | | | obstructive | | | | | | pulmonary disease) | | | | | | (HCC); Flushing; | | | | | | Chronic right-sided | | | | | | heart failure (HCC); | | | | | | Borderline [...] nt from the original. Pulmonary Follow Up Vera Lainez MD [facility] [address] [place], [address] HPI Margarita Rowley is a 48 y.o. [...] Years of Education: N/A Occupational History Disabled. [employer] Social History Main Topics Smoking status: Former Smoker -- 1.0 packs/day for 20 years Types: Cigarettes Quit date: 05/14/2013 Smokeless tobacco: None Alcohol Use: Yes Comment: history of abuse Drug Use: Yes Special: Cocaine Comment: history of cocaine use Sexually Active: None Other Topics Concern None Social History Narrative Lives at [employer]. Allergies: Allergies Allergen Reactions Erythromycin Metronidazole Penicillins [...] TABS Take 2,000 Units by mouth Daily. [place] Starch POWD by Does not apply route [...] 100 mg by mouth 2 times daily. [place]-3 Fatty Acids (SEA-OMEGA 30) 1200 MG CAPS [...] made to ensure accuracy; however, inadvertent computerized staff research scientist errors may be pre sent. documented in [...] CENTER | | | | | | [place] [address] | | | | | | [phone] | | | | | | | | +--------+ + + + + | 07/23/ | Office | Pulmonology | Helen Astudillo | | | 2019 | Visit | | MD Vikash [address] | | | | | | [address] [place] | | | | | | [place] [address] | | | | | | [phone] | | | | | | | [...] | performed on the Kathryn | | [employer] [place] | | | | [employer] | | MEDICAL | | | [...] + | [facility] | [address] | [place], [place] | [phone] | | [facility] | | [address] | | | - LABORATORY | | | | + + + + + | [facility] | [address] | [place], [place] | | | [facility] | | [address] [place] [address] | | | - LABORATORY | | [...]
--- OUTSIDE RECORDS SUMMARY | ~2020-05-02 | XMS | Encounter Summary ---
Demographics + + + | Address | [address] | | | [place] [address] | + + + | Home Phone [...] | Organization | [facility] | | | and [place] | + + + | Address | Unknown | + + + | Phone | Unavailable | + + + Support + + + + + | Name | Relationship | Address | Phone | + + + + + | [employer] | ECON | [id number] | | | | | Unknown | | + + + + + Care Team Providers + +------+ + | Care Magazine Writer Name | Role | Phone | + +------+ + | Yuni Shrestha | PCP | | + +------+ + Encounter Details +--------+ + + + + | Date | Type | Department | Care Team | Description | +--------+ + + + + | 01/04/ | Orders Only | [facility] [place] | [facility], | Dysphagia | | 2016 | | GASTROENTEROLOGY | BRITTANY Maddox [address] | | | | | [address] [place] | [address] | | | | | [address] [place], [place] | [place], [place] | | | | | [address] | [address] | | | | | [phone] | | | +--------+ + + + [...] | | | | | [place] [address] | | | | | | [phone] | | | | | | | | +--------+ + + + + | 07/23/ | Office | Pulmonology | Helen Astudillo | | | 2019 | Visit | | MD [address] | | | | | | [address] [place] | | | | | | [place] [address] | | | | | | [phone] | | | | | | | | +--------+ + + + + documented as of this encounter Visit Diagnoses + + | Diagnosis | + + | Dysphagia Dysphagia, unspecified | + + documented in this encounter"
--- OUTSIDE RECORDS SUMMARY | ~2020-05-02 | XMS | Encounter Summary ---
Demographics + + + | Address | [address] | | | [place] [address] | + + + | Home Phone [...] Organization | [facility] | | | and [place] | + + + | Address | Unknown | + + + | Phone | Unavailable | + + + Support + + + + + | Name | Relationship | Address | Phone | + + + + + | [employer] | ECON | [id number] | | | | | Unknown | | + + + + + Care Team Providers + +------+ + | Care Sample Weaver Name | Role | Phone | + +------+ + | Yuni Shrestha | PCP | | + +------+ + Encounter Details +--------+ + + + + | Date | Type | Department | Care Team | Description | +--------+ + + + + | 11/07/ | Hospital | [facility] | [place], | Primary pulmonary | | 2016 | Encounter | MED CTR PULMONARY | Vera Farrar MD | hypertension; | | | | FUNCTION [address] | | Hypoxemia | | | | [place], | | | | | | [place] [address] | | | | | | [phone] | | | +--------+ + + + [...] | 06/12/20 | | | | lungs continuous. 1L [...] | | | | | | | ([facility]) | | | | | | + + + +---------+ + + | buPROPion | Take 100 mg by mouth | | 0 | | | | (WELLBUTRIN) 100 mg | 2 times daily. | | | | 6 | | tablet | | | | | | + + + +---------+ + + | [place] Starch POWD | by Does not apply [...] + + + +---------+ + + | [place]-3 Fatty | Take by mouth. | | [...] tablets by | 60 | 5 | 08/08/20 | | | (ADCIRCA) 20 mg | mouth Daily. | tablet | | 15 | 6 | | tablet | | [...] | | | | | [place] [address] | | | | | | [phone] | | | | | | | | +--------+ + + + + | 07/23/ | Office | Pulmonology | Helen Astudillo | | | 2019 | Visit | | MD Vikash [address] | | | | | | [address] [place] | | | | | | [place] [address] | | | | | | [phone] | | | | | | | | +--------+ + + + + documented as of this encounter Procedures + +--------+ + + + | Procedure Name | Priori | Date/Time | Associated Diagnosis | Comments | | | ty | | | | + +--------+ + + + | PFT PULMONARY | BHAVIN | 11/07/2015 | Primary pulmonary | | | FUNCTION TESTING | | 1:34 PM | hypertension | | | ORDERS | | PST | Hypoxemia | | + +--------+ + + + documented in this encounter Visit Diagnoses + + | Diagnosis | + + | Primary pulmonary hypertension | + + | Hypoxemia | + + documented in this encounter"
--- OUTSIDE RECORDS SUMMARY | ~2020-05-02 | XMS | Encounter Summary ---
Demographics + + + | Address | [address] | | | [place] [address] | + + + | Home Phone [...] + + | Author | [facility] | | | and [place] | + + + | Organization | [facility] | | | and [place] | + + + | Address | Unknown | + + + | Phone | Unavailable | + + + Support + + + + + | Name | Relationship | Address | Phone | + + + + + | [employer] | ECON | [id number] | | | | | Unknown | | + + + + + Care Team Providers + +------+ + | Care Cardiothoracic Anesthesia Technician Name | Role | Phone | [...] + + | 07/23/ | Office | [facility] | Jacky Calderon [place] | Primary central | | 2016 | Visit | SLEEP DISORDER [address] | [address] | sleep apnea (Primary | | | | [address] | [place] | Dx) | | | | [place] [address] | [address] | | | | | [phone] | | | +--------+---------+ + + + [...] 05/22/2015 date of polysomnography: 03/13/2013 at [facility] AHI: 64.2 O2%: n/a Machine type: Respironics BiPAP Auto with ResMed Quattro FX full face mask obtained from: [facility] in [place] pressure: 16/5 cm with backup rate of [...] Assessment: Problem #1: PRIMARY CENTRAL SLEEP APNEA ([id number]) This is controlled with BiPAP and oxygen at 5 L/min. Her compliance is going very well. Plan: 1. She is to continue with BiPAP indefinitely. 2. She is to touch base with her medical supplier twice per year to ensure that her equipm ent is satisfactory. I will follow up with her in 1 year, sooner prn. Fifteen minutes were spent [id number], with the majority of time spent in [...] | | | | | [place] [address] | | | | | | [phone] | | | | | | | | +--------+ + + + + | 07/23/ | Office | Pulmonology | Helen Astudillo | | | 2019 | Visit | | MD Vikash [address] | | | | | | [address] [place] | | | | | | [place] [address] | | | | | | [phone] | | | | | | | | +--------+ + + + + documented as of this encounter Visit Diagnoses + + | Diagnosis | + + | Primary central sleep apnea - Primary | + + documented in this encounter"
--- OUTSIDE RECORDS SUMMARY | ~2020-05-02 | XMS | Encounter Summary ---
Demographics + + + | Address | [address] | | | [place] [address] | + + + | Home Phone [...] | Organization | [facility] | | | and [place] | + + + | Address | Unknown | + + + | Phone | Unavailable | + + + Support + + + + + | Name | Relationship | Address | Phone | + + + + + | [employer] | ECON | [id number] | | | | | Unknown | | + + + + + Care Team Providers + +------+ + | Care Dressage Judge Name | Role | Phone | + [...] | Primary | Offenstein, | [address] | | | | | pulmonary | Vera B, | [place], | | | | | hypertension | MD [address] | [place] | | | | | ([facility]) | [address] | [address] | | | | | Procedures | [place], | Phone: | | | | | ECHO | [place] [address] | [phone] | | | | | Complete CT | | Fax: | | | | | ECHO HEART | | [phone] | | | | | [place]THORAC[place] | | | | | | | [address] | | | | | | | [address] | | | | | | | [...] | hypertension (HCC); | | | | [address] [place], | | [place] (obstructive | | | | [place] [address] | | sleep apnea); COPD | | | | [phone] | | (chronic obstructive | | | [...] 1200 feet regularly. Please take her to [facility] monthly for urine tests. Get the printed [...] her echocardiogram, which looked somewhat worse. Th ey made her follow up with Dr. Rivera. [...] Diagnosis Date COPD (chronic obstructive pulmonary disease) ([facility]) moderate, FEV1 1.40 (59%) Pulmonary hypertension ([facility]) severe, class 1, class 2, class 3 Bipolar disorder ([facility]) PTSD (post-traumatic stress disorder) Osteoarthritis Obstructive sleep apnea AHI 64.2 Vitamin D deficiency GERD (gastroesophageal reflux disease) Hypothyroidism Seizure disorder ([facility]) Developmental delay Hypoxemia on 2L at rest, 4L with exertion Female stress incontinence Pyelonephritis Hypertension Impulse control disorder Hyperlipidemia Obesity Alcohol abuse Cocaine abuse Past Surgical History Past Surgical History Procedure Laterality Date Mouth surgery 2 teeth removed Cardiac catherization Social History: History Social History Marital Status: Single Spouse Name: N/A Number of Children: N/A Years of Education: N/A Occupational History Disabled. [employer] Social History Main Topics Smoking status: Current [...] Concern None Social History Narrative Lives at [employer]. Allergies: Allergies Allergen Reactions Erythromycin Metronidazole Penicillins [...] TABS Take 2,000 Units by mouth Daily. [place] Starch POWD by Does not apply route [...] mg onto the skin every 24 hours. [place]-3 Fatty Acids (SEA-OMEGA 30) 1200 MG CAPS [...] her [facility] [place] [facility]. HCG, Urine, [...] and lab slip given to take to [facility]. She was advised to call if new pulmonary symptoms were to develop. Return to clinic in July, or sooner with concerns. CC: VIKAS Galicia, Lashae Rivera MD Portions of this report were transcribed using voice recognition software. Every effort wa s made to ensure accuracy; however, inadvertent computerized new vehicle sales consultant errors may be pre sent. [...] [place] | | | | | | [place] [address] | | | | | | [phone] | | | | | | | | +--------+ + + + + | 07/23/ | Office | Pulmonology | Helen Astudillo | | 2019 | Visit | | MD Vikash [address] | | | | | | [address] [place] | | | | | | [place] [address] | | | | | | [phone] | | | | | | | [...]
--- OUTSIDE RECORDS SUMMARY | ~2020-05-02 | XMS | Encounter Summary ---
Demographics + + + | Address | [address] | | | [place] [address] | + + + | Home Phone [...] | [facility] | | | and [place] | + + + | Address | Unknown | + + + | Phone | Unavailable | + + + Support + + + + + | Name | Relationship | Address | Phone | + + + + + | [employer] | ECON | [id number] | | | | | Unknown | | + + + + + Care Team Providers + +------+ + | Care Outside Sales Account Executive Name | Role | Phone | + [...] | Jacky Calderon | | | | Scaffold Erector / | Obstructive | Shanice Paez, | D, PA [address] | | | | Sleep | sleep apnea | [address] | [address] | | | | Medicine | (adult) | ROSELIA MATTHEWS | [place], | | | | | (pediatric) | [place], | [place] [address] | | | | | 2 mo cpap | [place] | Phone: | | | | | follow up, | [address] | [phone] | | | | | bring | Phone: | Fax: | | | | | equip/AO- | [phone] | [phone] | | | | | new machine | Fax: | | | | | | Procedures | [phone] | | | | | | 05/30 [...] + + | 04/16/ | Office | [facility] | Jacky Calderon PA | Primary central | | 2019 | Visit | SLEEP DISORDER [address] | [address] | sleep apnea (Primary | | | | [address] [place] | [place], [place] | Dx) | | | | [place] [address] | [address] | | | | | [phone] | | | +--------+---------+ + + + [...] in this encounter Patient Instructions Patient Instructions Jcaky Calderon PA - 04/16/2019 1:00 PM PDT1. [...] Hospital AHI: 64.2 O2%: n/a Machine type: RespirChoozOn (d.b.a. Blue Kangaroo) DreamStation Auto BiPAP Mask type: ResWeGame Quattro FX full face mask DME: In [...] Assessment: Problem #1: PRIMARY CENTRAL SLEEP APNEA ([id number]) This is controlled with BiPAP and oxygen [...] | | | | | | [place] [address] | | | | | | [phone] | | | | | | | | +--------+ + + + + | 07/23/ | Office | Pulmonology | BaudilioHelen | | | 2020 | Visit | | MD Vikash [address] | | | | | | [address] [place] | | | | | | [place] [address] | | | | | | [phone] | | | | | | | | +--------+ + + + + documented as of this encounter Visit Diagnoses + + | Diagnosis | + + | Primary central sleep apnea - Primary | + + documented in this encounter"
--- OUTSIDE RECORDS SUMMARY | ~2020-05-02 | XMS | Encounter Summary ---
Demographics + + + | Address | [address] | | | [place] [address] | + + + | Home Phone | | + + + | Preferred Language | Unknown | + + + | Marital Status | Single | + + + | Presybeterian Affiliation | NRP | + + + | Race | White | + + + | Ethnic Group | Not or | + + + Author + + + | Author | [facility] | + + + | Organization | [facility] | + + + | Address | Unknown | + + + | Phone | Unavailable | + + + Support + + +---------+ + | Name | Relationship | Address | Phone | + + +---------+ + | Lidia Thibodeaux | ECON | Unknown | | + + +---------+ + Care Team Providers + +------+ + | Care Library Historian Name | Role | Phone | + +------+ + | Gela Trimble NP | PCP | | + +------+ + Encounter Details +--------+ + + + + | Date | Type | Department | Care Team | Description | +--------+ + + + + | 05/04/ | Results | Stress | Other, Faculty | | | 2012 | Only | Echocardiography | [phone] | | | | | [address] | | | | | | Loop Mailcode: | | | | | | [id number] Outpatient | | | | | | Clinic Building | | | | | | [place], [place] | | | | | | [address] | | | | | | [phone] | | | +--------+ + + + [...] DEPT OF | [address] | [place], [place] | | | CARDIOLOGY | [facility] | [address] | | + + + + + documented in this encounter Visit Diagnoses Not on filedocumented in this encounter"
--- OUTSIDE RECORDS SUMMARY | ~2020-05-02 | XMS | Encounter Summary ---
Demographics + + + | Address | [address] | | | [place] [address] | + + + | Home Phone [...] | Organization | [facility] | | | and [place] | + + + | Address | Unknown | + + + | Phone | Unavailable | + + + Support + + + + + | Name | Relationship | Address | Phone | + + + + + | [employer] | ECON | [phone] | | | | | Unknown | | + + + + + Care Team Providers + +------+ + | Care Stations Superintendent Name | Role | Phone | + [...] | | | | ABDIRASHID BROTHERS | [place], [place] | | | | | [place] | [address] | | | | | [address] | [phone] | | | | | [phone] | | | +--------+ + + + [...] | | | | | [place] [address] | | | | | | [phone] | | | | | | | | +--------+ + + + + | 07/23/ | Office | Pulmonology | Helen Astudillo | | | 2019 | Visit | | MD [address] | | | | | | [address] | | | | | | [place] [address] | | | | | | [phone] | | | | | | | | +--------+ + + + + documented as of this encounter Visit Diagnoses Not on filedocumented in this encounter"
--- OUTSIDE RECORDS SUMMARY | ~2020-05-02 | XMS | Encounter Summary ---
Demographics + + + | Address | [address] | | | [place] [address] | + + + | Home Phone [...] Team Providers + +------+ + | Care Reweaver Name | Role | Phone | + [...] Rd | | | | | | [place], [place] | | | | | | [address] | | | +--------+ + + + [...]
--- OUTSIDE RECORDS SUMMARY | ~2020-05-02 | XMS | Encounter Summary ---
Demographics + + + | Address | [address] | | | [place] [address] | + + + | Home Phone [...] Organization | [facility] | | | and [place] | + + + | Address | Unknown | + + + | Phone | Unavailable | + + + Support + + + + + | Name | Relationship | Address | Phone | + + + + + | [employer] | ECON | [phone] | | | | | Unknown | | + + + + + Care Team Providers + +------+ + | Care Asbestos Brake Lining Finisher Name | Role | Phone | [...] | | | | | (HCC) | [address] | AVE | | | | | Procedures | [place], | [place], [place] | | | | | ECHO | [place] [address] | [address] | | | | | Complete [place] | | Phone: | | | | | ECHO HEART | | [phone] | | | | | XTHORACIC,[place] | | Fax: | | | | | [address] | | [phone] | | | | | [address] [place] | | | | | | | [...] | | | Pulmonology | obstructive | CLINICAL ADVISOR [address] | MD | | | | | pulmonary | [address] | | | | | | disease, | [place], | | | | | | unspecified | [place] [address] | | | | | | ([facility]) | Phone: | | | | | | Procedures | [phone] | | | | | | F/U | Fax: | | | | | | | [phone] | | +--------+--------+ + + + + Encounter Details +--------+---------+ + + + | Date | Type | Department | Care Team | Description | +--------+---------+ + + + | 02/02/ | Office | [facility] | Fatou, | Primary pulmonary | | 2016 | Visit | PULMONARY [address] | Vera Farrar MD | hypertension (HCC) | | | | [place], | | (Primary Dx); | | | | [place] [address] | | Chronic obstructive | | | | [phone] | | pulmonary disease, | | | [...] Diagnosis Date COPD (chronic obstructive pulmonary disease) ([facility]) moderate, FEV1 1.40 (59%) Pulmonary hypertension ([facility]) severe, class 1, class 2, class 3 Bipolar disorder ([facility]) PTSD (post-traumatic stress disorder) Osteoarthritis Obstructive sleep apnea AHI 64.2 Vitamin D deficiency GERD (gastroesophageal reflux disease) Hypothyroidism Seizure disorder ([facility]) Developmental delay Hypoxemia on 2L at rest, 4L with exertion Female stress incontinence Pyelonephritis Hypertension Impulse control disorder Hyperlipidemia Obesity Alcohol abuse Cocaine abuse Past Surgical History Past Surgical History Procedure Laterality Date Mouth surgery 2 teeth removed Cardiac catherization Social History: History Social History Marital Status: Single Spouse Name: N/A Number of Children: N/A Years of Education: N/A Occupational History Disabled. [employer] Social History Main Topics Smoking status: Former Smoker -- 1.00 packs/day for 20 years Types: Cigarettes Quit date: 12/15/2015 Smokeless tobacco: Never Used Alcohol Use: No Drug Use: No Sexual Activity: Not on file Other Topics Concern None Social History Narrative Lives at [employer]. Allergies: Allergies Allergen Reactions Erythromycin Other (See [...] TABS Take 2,000 Units by mouth Daily. [place] Starch POWD by Does not apply route [...] mg onto the skin every 24 hours. [place]-3 Fatty Acids (SEA-OMEGA 30) 1200 MG CAPS [...] Rivera. ECHO Complete * [facility] ([facility]) Pulmonary Function Testing - AMB Referral 2. [...] made to ensure accuracy; however, inadvertent computerized department editor errors may be pre sent. documented in [...] | | | | | | [place] [address] | | | | | | [phone] | | | | | | | | +--------+ + + + + | 07/23/ | Office | Pulmonology | Helen Astudillo | | | 2019 | Visit | | MD [address] | | | | | | [address] [place] | | | | | | [place] [address] | | | | | | [phone] | | | | | | | [...]
--- OUTSIDE RECORDS SUMMARY | ~2020-05-02 | XMS | Encounter Summary ---
Demographics + + + | Address | [address] | | | [place] [address] | + + + | Home Phone [...] + | Organization | [facility] | | | and [place] | + + + | Address | Unknown | + + + | Phone | Unavailable | + + + Support + + + + + | Name | Relationship | Address | Phone | + + + + + | [employer] | ECON | [phone] | | | | | Unknown | | + + + + + Care Team Providers + +------+ + | Care Plug Maker Name | Role | Phone | [...] | hypertension (HCC) | | | | [facility] [place], | | | | | | [place] [address] | | | | | | [phone] | | | +--------+ + + + [...] | | | | | | [place] [address] | | | | | | [phone] | | | | | | | | +--------+ + + + + | 07/23/ | Office | Pulmonology | Helen Astudillo | | | 2019 | Visit | | MD Vikash [address] | | | | | | [address] [place] | | | | | | [place] [address] | | | | | | [phone] | | | | | | | | +--------+ + + + + documented as of this encounter Visit Diagnoses + + | Diagnosis | + + | Pulmonary hypertension (HCC) Other chronic pulmonary heart diseases | + + documented in this encounter"
--- OUTSIDE RECORDS SUMMARY | ~2020-05-02 | XMS | Encounter Summary ---
Demographics + + + | Address | [address] | | | [place] [address] | + + + | Home Phone [...] | Organization | [facility] | | | and [place] | + + + | Address | Unknown | + + + | Phone | Unavailable | + + + Support + + + + + | Name | Relationship | Address | Phone | + + + + + | [employer] | ECON | [phone] | | | | | Unknown | | + + + + + Care Team Providers + +------+ + | Care Shoulder Joiner Name | Role | Phone | + +------+ + | Gela Trimble NP | PCP | | + +------+ + Reason for Visit +--------+--------+ + | Reason | Onset | Comments | | | Date | | +--------+--------+ + | Other | 03/12/ | | | | 2014 | | +--------+--------+ + Encounter Details +--------+ + + + + | Date | Type | Department | Care Team | Description | +--------+ + + + + | 03/12/ | Telephone | [facility] [place] | [place]enstein, | Other | | 2014 | | PULMONARY [address] | Vera Farrar MD | | | | | [place], | | | | | | [place] [address] | | | | | | [phone] | | | +--------+ + + + [...] that Margarita's neurologist is Dr.Fei Fajardo in [place], [place]. She has an appointment with him [...] | | | | | [place] [address] | | | | | | [phone] | | | | | | | | +--------+ + + + + | 07/23/ | Office | Pulmonology | Helen Astudillo | | | 2019 | Visit | | MD [address] | | | | | | [address] | | | | | | [place] [address] | | | | | | [phone] | | | | | | | | +--------+ + + + + documented as of this encounter Visit Diagnoses Not on filedocumented in this encounter"
--- OUTSIDE RECORDS SUMMARY | ~2020-05-02 | XMS | Encounter Summary ---
Demographics + + + | Address | [address] | | | [place] [address] | + + + | Home Phone | | + + + | Preferred Language | Unknown | + + + | Marital Status | Single | + + + | Holiness Affiliation | 1009 | + + + | Race | Unknown | + + + | Ethnic Group | Unknown | + + + Author + + + | Author | [facility] | | | and [place] | + + + | Organization | [facility] | | | and [place] | + + + | Address | Unknown | + + + | Phone | Unavailable | + + + Support + + + + + | Name | Relationship | Address | Phone | + + + + + | [employer] | ECON | [phone] | | | | | Unknown | | + + + + + Care Team Providers + +------+ + | Care Panel Maker Name | Role | Phone | [...] Farrar MD | | | | | [place], | | | | | | [place] [address] | | | | | | [phone] | | | +--------+--------+ + + + [...] | | | | | [place] [address] | | | | | | [phone] | | | | | | | | +--------+ + + + + | 07/23/ | Office | Pulmonology | Helen Astudillo | | | 2019 | Visit | | MD [address] | | | | | | [address] [place] | | | | | | [place] [address] | | | | | | [phone] | | | | | | | [...]
--- OUTSIDE RECORDS SUMMARY | ~2020-05-02 | XMS | Encounter Summary ---
Demographics + + + | Address | [address] | | | [place] [address] | + + + | Home Phone [...] | Organization | [facility] | | | and [place] | + + + | Address | Unknown | + + + | Phone | Unavailable | + + + Support + + + + + | Name | Relationship | Address | Phone | + + + + + | [employer] | ECON | [id number] | | | | | Unknown | | + + + + + Care Team Providers + +------+ + | Care Director Of Quality Control Name | Role | Phone | + [...] | RN | | | | | [place], | | | | | | [place] [address] | | | | | | [phone] | | | +--------+ + + + [...] | | | | | [place] [address] | | | | | | [phone] | | | | | | | | +--------+ + + + + | 07/23/ | Office | Pulmonology | Helen Astudillo | | | 2019 | Visit | | MD [address] | | | | | | [address] | | | | | | [place] [address] | | | | | | [phone] | | | | | | | | +--------+ + + + + documented as of this encounter Visit Diagnoses + + | Diagnosis | + + | Obstructive sleep apnea (adult) (pediatric) - Primary | + + documented in this encounter"
--- OUTSIDE RECORDS SUMMARY | ~2020-05-02 | XMS | Encounter Summary ---
Demographics + + + | Address | [address] | | | [place] [address] | + + + | Home Phone [...] Organization | [facility] | | | and [place] | + + + | Address | Unknown | + + + | Phone | Unavailable | + + + Support + + + + + | Name | Relationship | Address | Phone | + + + + + | [employer] | ECON | [phone] | | | | | Unknown | | + + + + + Care Team Providers + +------+ + | Care Drupal Web Developer Name | Role | Phone [...] | | | | ABDIRASHID BROTHERS | [place], [place] | | | | | [place] | [address] | | | | | [address] | [phone] | | | | | [phone] | | | +--------+ + + + [...] | | | | | [place] [address] | | | | | | [phone] | | | | | | | | +--------+ + + + + | 07/23/ | Office | Pulmonology | Helen Astudillo | | | 2019 | Visit | | MD [address] | | | | | | [address] | | | | | | [place] [address] | | | | | | [phone] | | | | | | | | +--------+ + + + + documented as of this encounter Visit Diagnoses Not on filedocumented in this encounter"
--- OUTSIDE RECORDS SUMMARY | ~2020-05-02 | XMS | Encounter Summary ---
Demographics + + + | Address | [address] | | | [place] [address] | + + + | Home Phone [...] | Organization | [facility] | | | and [place] | + + + | Address | Unknown | + + + | Phone | Unavailable | + + + Support + + + + + | Name | Relationship | Address | Phone | + + + + + | [employer] | ECON | [id number] | | | | | Unknown | | + + + + + Care Team Providers + +------+ + | Care Student Financial Services Counselor Name | Role | Phone | + +------+ + | Yuni Shrestha | PCP | | + +------+ + Encounter Details +--------+ + + + + | Date | Type | Department | Care Team | Description | +--------+ + + + + | 06/12/ | Hospital | [facility] | Offenstein, | Exercise hypoxemia | | 2014 | Encounter | MED CTR PULMONARY | Vera Farrar MD | ([facility]); Primary | | | | FUNCTION [address] | | pulmonary | | | | [place], | | hypertension | | | | [place] [address] | | | | | | [phone] | | | +--------+ + + + [...] | 0 | 12/11/19 | | | (Gramco) 0.65% nasal | package instructions | Bottle [...] + + + +---------+ + + | [place] Starch POWD | by Does not apply [...] + + + +---------+ + + | [place]-3 Fatty | Take by mouth. | | [...] | | | | | [place] [address] | | | | | | [phone] | | | | | | | | +--------+ + + + + | 07/23/ | Office | Pulmonology | Helen Astudillo | | 2019 | Visit | | MD [address] | | | | | | [address] | | | | | | [place] [address] | | | | | | [phone] | | | | | | | [...] FUNCTION TESTING | | 9:41 AM | ([facility]) Primary | | | ORDERS [...]
--- OUTSIDE RECORDS SUMMARY | ~2020-05-02 | XMS | Encounter Summary ---
Demographics + + + | Address | [address] | | | [place] [address] | + + + | Home Phone | | + + + | Preferred Language | Unknown | + + + | Marital Status | Single | + + + | Adventist Affiliation | [id number] | + + + | Race | Unknown | + + + | Ethnic Group | Unknown | + + + Author + + + | Author | [facility] | | | and [place] | + + + | Organization | [facility] | | | and [place] | + + + | Address | Unknown | + + + | Phone | Unavailable | + + + Support + + + + + | Name | Relationship | Address | Phone | + + + + + | [employer] | ECON | [id number] | | | | | Unknown | | + + + + + Care Team Providers + +------+ + | Care Sales Engineer Engineered Products Name | Role | Phone | + +------+ + | Gela Trimble COMPRESSED GAS PLANT WORKER | PCP | | + +------+ [...] | Primary | [place], | [address] | | | | | pulmonary | Vera B, | [place], | | | | | hypertension | MD [address] | [place] | | | | | (HCC) | [address] | [address] | | | | | Procedures | [place], | Phone: | | | | | ECHO | [place] [address] | [phone] | | | | | Complete | | Fax: | | | | | | | [phone] | +--------+--------+ + + + + Reason [...] | Primary | Off[place], | [address] | | | | | pulmonary | Vera B, | [place], | | | | | hypertension | MD [address] | [place] | | | | | ([facility]) | [address] | [address] | | | | | Procedures | [place], | Phone: | | | | | ECHO | [place] [address] | [phone] | | | | | Complete | | Fax: | | | | | | | [phone] | +--------+--------+ + + + + Encounter Details +--------+ + + + + | Date | Type | Department | Care Team | Description | +--------+ + + + + | 09/11/ | Hospital | [facility] | [place], | Primary pulmonary | | 2013 | Encounter | [facility] [address] | Vera Farrar MD | hypertension | | | | [address] [place] | Taya Kirby, | | | | | [place] [address] | Technologist | | | | | [phone] | | | +--------+ + + + [...] | | | | | | | ([facility]) | | | | | | + + + +---------+ + + | buPROPion | Take 100 mg by mouth | | 0 | | | | (WELLBUTRIN) 100 mg | 2 times daily. | | | | 6 | | tablet | | | | | | + + + +---------+ + + | Starbuck Starch POWD | by Does not apply [...] + + + +---------+ + + | Mingus-3 Fatty | Take by mouth. | | [...] | | | | | [place] [address] | | | | | | [phone] | | | | | | | | +--------+ + + + + | 07/23/ | Office | Pulmonology | Helen Astudillo | | 2019 | Visit | | MD [address] | | | | | | [address] | | | | | | [place] [address] | | | | | | [phone] | | | | | | | [...] [facility] ECHOCARD[facility] RE[facility] | [facility] | | STUDY DATE: 09/11/2014 PATIENT NAME: Margarita Rowley : | [facility] | | 1965 PCP: Gela Trimble [...] | | | Ananth Salguero MD PhD [facility] 09/11/2014 10:45 | | | Obstetrician: Hung Caro, JUANITOCS, RVT, RDMS | | + + + + + | Procedure Note | + + | Roberto Salguero MD - 09/12/2014 9:12 AM [facility] | | CENTERECHOCARDIOGRAM REPORTSTUDY DATE: 09/11/2014PATIENT NAME: Margarita MooreB: | | 1965MRN: [id number]: Gela Trimble, [facility]DIAGNOSIS: | | Pulmonary hypertensionA transthoracic echocardiogram [...] PP mmHgLA volume: 30 mLLA index: 16 mL/q1Szayga Inflow DT: 272 | | msIVRT: 110 msValsalva: Not neededPWDTI S wave: 7.2 cm/sPWDTI E wave: 8.0 cm/sPWDTI | | A wave: 10.4 cm/sE/A Ratio: 0.769E/E Ratio: 10.63Signed by: Artie Salguero MD | | PhD FACC 09/11/2014 10:45 Obstetrician: Hung Caro RDCS, RVT, JESUSITA | |Tricuspid valve: Normal with mild insufficiency. [...] 09/11/2014 10:45 | | | | | |Obstetrician: Hung Caro RDCS, ANNA, RDMS | + + + + + + + | Performing | Address | City/State/Zipcode | Phone Number | | Organization | | | | + + + + + | [facility] | [address] | [place] | [phone] | | [facility] | | [address] | | | - IMAGING | | [...]
--- OUTSIDE RECORDS SUMMARY | ~2020-05-02 | XMS | Encounter Summary ---
Demographics + + + | Address | [address] | | | [place] [address] | + + + | Home Phone [...] | Organization | [facility] | | | and [place] | + + + | Address | Unknown | + + + | Phone | Unavailable | + + + Support + + + + + | Name | Relationship | Address | Phone | + + + + + | [employer] | ECON | [phone] | | | | | Unknown | | + + + + + Care Team Providers + +------+ + | Care Inflated Pad Buffer Name | Role | Phone | + [...] + + | 12/26/ | Office | [facility] | Jacky Calderon PA | Primary central | | 2013 | Visit | SLEEP DISORDER [address] | [address] | sleep apnea (Primary | | | | [address] [place] | [place], [place] | Dx) | | | | [place] [address] | [address] | | | | | [phone] | | | +--------+---------+ + + + [...] was: 11/20/2013 date of polysomnography: 03/13/2013 at [facility] AHI: 64.2 O2%: n/a Machine type: Respironics BiPAP Auto with ResMed Quattro FX full face mask obtained from: [facility] pressure: 19/5 cm Nights using BiPAP: 35/36 [...] a [facility] to [facility] [place] for a change in her pressure s etting to 16/5 cm with backup rate of 8 and 5 L/min oxygen bled into the circuitry. She is to continue with BiPAP at these settings. I will follow up with her in 1 month, sooner prn. Thirty minutes were spent [id number]-we-[id number], with the majority of time spent in counseling. Jacky Calderon PA-C cc: BRUCE Beal MD documented in this enco unter Miscellaneous Notes Miscellaneous - ALBA CELESTEAK - 12/26/2013 12:00 AM PST documented in this encounter Plan of Treatment +--------+ + + + + | Date | Type | Specialty | Care Team | Description | +--------+ + + + + | 07/23/ | Appointment | Pulmonology | Helen Astudillo | | | 2019 | | | MD Vikash [address] | | | | | | [address] [facility] | | | | | | [place] [address] | | | | | | [phone] | | | | | | | | +--------+ + + + + | 07/23/ | Office | Pulmonology | Helen Astudillo | | | 2019 | Visit | | MD Vikash [address] | | | | | | [address] [place] | | | | | | [place] [address] | | | | | | [phone] | | | | | | | | +--------+ + + + + documented as of this encounter Visit Diagnoses + + | Diagnosis | + + | Primary central sleep apnea - Primary | + + documented in this encounter"
--- OUTSIDE RECORDS SUMMARY | ~2020-05-02 | XMS | Encounter Summary ---
Demographics + + + | Address | [address] | | | [place] [address] | + + + | Home Phone [...] Organization | [facility] | | | and [place] | + + + | Address | Unknown | + + + | Phone | Unavailable | + + + Support + + + + + | Name | Relationship | Address | Phone | + + + + + | [employer] | ECON | [id number] | | | | | Unknown | | + + + + + Care Team Providers + +------+ + | Care Artificial Flowers Dyer Name | Role | Phone | + [...] Closed | | Pulmonary | Diagnoses | aNi, | Fatou, | | | | Disease / | Chronic | Gela Mistry, | Vera Farrar, | | | | Pulmonology | airway | INSPECTOR ROUGH CASTINGS [address] | MD | | | | | obstruction, | | | | | | | not | [address] | | | | | | elsewhere | [place], | | | | | | classified | [place] [address] | | | | | | Obstructive | Phone: | | | | | | sleep apnea | [phone] | | | | | | (adult) | Fax: | | | | | | (pediatric) | [phone] | | | | | | Procedures | | | | | | | [place] OFFICE | | | | | | [...] MD | hypertension | | | | [place], | | (Primary Dx); [place] | | | | [place] [address] | | (chronic obstructive | | | | [phone] | | pulmonary disease); | | | [...] Years of Education: N/A Occupational History Disabled. Experience Headphones Social History Main Topics Smoking status: Former Smoker -- 1.0 packs/day for 20 years Types: Cigarettes Quit date: 05/14/2013 Smokeless tobacco: None Alcohol Use: Yes Comment: history of abuse Drug Use: Yes Special: Cocaine Comment: history of cocaine use Sexually Active: None Other Topics Concern None Social History Narrative Lives at [facility]. Allergies: Allergies Allergen Reactions Erythromycin Metronidazole Penicillins [...] TABS Take 2,000 Units by mouth Daily. [place] Starch POWD by Does not apply route [...] tablet Take 15 mg by mouth Daily. [place]-3 Fatty Acids (SEA-OMEGA 30) 1200 MG CAPS [...] extra free meal per month. Otherwise sh kya will remain on a 1500 calorie diet [...] made to ensure accuracy; however, inadvertent computerized director voice errors may be pre sent. documented in [...] | | | | | [place] [address] | | | | | | [phone] | | | | | | | | +--------+ + + + + | 07/23/ | Office | Pulmonology | Helen Astudillo | | | 2019 | Visit | | MD Vikash [address] | | | | | | [address] | | | | | | [place] [address] | | | | | | [phone] | | | | | | | [...]
--- OUTSIDE RECORDS SUMMARY | ~2020-05-02 | XMS | Encounter Summary ---
Demographics + + + | Address | [address] | | | [place] [address] | + + + | Home Phone [...] | Organization | [facility] | | | and [place] | + + + | Address | Unknown | + + + | Phone | Unavailable | + + + Support + + + + + | Name | Relationship | Address | Phone | + + + + + | [employer] | ECON | [phone] | | | | | Unknown | | + + + + + Care Team Providers + +------+ + | Care Rack Washer Name | Role | Phone | + [...] | hypertension (HCC); | | | | [place], | | High risk medication | | | | [place] [address] | | use | | | | [phone] | | | +--------+ + + + [...] | | | | | [place] [address] | | | | | | [phone] | | | | | | | | +--------+ + + + + | 07/23/ | Office | Pulmonology | Baudilio Heeln | | | 2019 | Visit | | MD Vikash [address] | | | | | | [address] [place] | | | | | | [place] [address] | | | | | | [phone] | | | | | | | [...]
--- OUTSIDE RECORDS SUMMARY | ~2020-05-02 | XMS | Encounter Summary ---
Demographics + + + | Address | [address] | | | [place] [address] | + + + | Home Phone [...] Organization | [facility] | | | and [place] | + + + | Address | Unknown | + + + | Phone | Unavailable | + + + Support + + + + + | Name | Relationship | Address | Phone | + + + + + | [employer] | ECON | [phone] | | | | | Unknown | | + + + + + Care Team Providers + +------+ + | Care Battery Container Tester Name | Role | Phone | [...] | hypertension (HCC) | | | | [place] | [place] [address] | (Primary Dx) | | | | [place] [address] | [phone] | | | | | [phone] | | | +--------+ + + + [...] | 07/23/ | Appointment | Pulmonology | Filibertojina Helen | | | 2019 | | | MD [address] | | | | | | [address] [place] | | | | | | [place] [address] | | | | | | [phone] | | | | | | | | +--------+ + + + + | 07/23/ | Office | Pulmonology | Helen Astudillo | | | 2019 | Visit | | MD [address] | | | | | | [address] [place] | | | | | | [place], [place] [address] | | | | | | [phone] | | | | | | | [...]
--- OUTSIDE RECORDS SUMMARY | ~2020-05-02 | XMS | Encounter Summary ---
Demographics + + + | Address | [address] | | | [place] [address] | + + + | Home Phone [...] + + | Organization | [facility] | | | and [place] | + + + | Address | Unknown | + + + | Phone | Unavailable | + + + Support + + + + + | Name | Relationship | Address | Phone | + + + + + | [employer] | ECON | [phone] | | | | | Unknown | | + + + + + Care Team Providers + +------+ + | Care Clock Maker Name | Role | Phone | [...] | sleep apnea); | | | | [place], | | Hypoxemia | | | | [place] [address] | | | | | | [phone] | | | +--------+ + + + [...] | | | | | [place] [address] | | | | | | [phone] | | | | | | | | +--------+ + + + + | 07/23/ | Office | Pulmonology | Helen Astudillo | | | 2019 | Visit | | MD [address] | | | | | | [address] [place] | | | | | | [place] [address] | | | | | | [phone] | | | | | | | | +--------+ + + + + documented as of this encounter Visit Diagnoses + + | Diagnosis | + + | GLORIA (obstructive sleep apnea) Obstructive sleep apnea (adult) (pediatric) | + + | Hypoxemia | + + documented in this encounter"
--- OUTSIDE RECORDS SUMMARY | ~2020-05-02 | XMS | Encounter Summary ---
Demographics + + + | Address | [address] | | | [place] [address] | + + + | Home Phone [...] [facility] | | | and [place] | + + + | Address | Unknown | + + + | Phone | Unavailable | + + + Support + + + + + | Name | Relationship | Address | Phone | + + + + + | [employer] | ECON | [phone] | | | | | Unknown | | + + + + + Care Team Providers + +------+ + | Care General Maintenance Helper Name | Role | Phone | [...] + + | 11/20/ | Office | [facility] | Jacky Calderon PA | Primary central | | 2014 | Visit | SLEEP DISORDER [address] | [address] | sleep apnea (Primary | | | | [address] [place] | [place], [place] | Dx) | | | | [place] [address] | [address] | | | | | [phone] | | | +--------+---------+ + + + [...] was: 10/16/2013 date of polysomnography: 03/13/2013 at [facility] AHI: 64.2 O2%: n/a Machine type: Respironics BiPAP Auto with ResMed Quattro FX full face mask obtained from: [facility] pressure: 18/14 cm 19/5 cm Nights using BiPAP: 34/35 average usage (all nights): 6:27 6:15 average usage (nights used): 6:47 6:26 AHI: 11.0 62.5 Jessie comes in for BiPAP compliance. She was referred by Dr. Lainez to help with her pr oblems with leaks and her apnea not being completely controlled. We had [facility] in [place] change her pressure to the original prescription [...] study, sooner prn. Fifteen minutes were spent athl-dp-utff, with the majority of time spent in [...] | | | | | [place] [address] | | | | | | [phone] | | | | | | | | +--------+ + + + + | 07/23/ | Office | Pulmonology | Helen Astudillo | | | 2019 | Visit | | MD Vikash [address] | | | | | | [address] [place] | | | | | | [place] [address] | | | | | | [phone] | | | | | | | | +--------+ + + + + documented as of this encounter Visit Diagnoses + + | Diagnosis | + + | Primary central sleep apnea - Primary | + + documented in this encounter"
--- OUTSIDE RECORDS SUMMARY | ~2020-05-02 | XMS | Encounter Summary ---
Demographics + + + | Address | [address] | | | [place] [address] | + + + | Home Phone [...] + + + | Author | [facility] | + + + | Organization | [facility] | + + + | Address | Unknown | + + + | Phone | Unavailable | + + + Support + + +---------+ + | Name | Relationship | Address | Phone | + + +---------+ + | Lidia Thibodeaux | ECON | Unknown | | + + +---------+ + Care Team Providers + +------+ + | Care Bus And Sys Integration Senior Manager Name | Role | Phone | [...] [address] | | | | | | [place], [place] | | | | | | [address] | | | +--------+ + + + [...]
--- OUTSIDE RECORDS SUMMARY | ~2020-05-02 | XMS | Encounter Summary ---
Demographics + + + | Address | [address] | | | [place] [address] | + + + | Home Phone [...] | Organization | [facility] | | | and [place] | + + + | Address | Unknown | + + + | Phone | Unavailable | + + + Support + + + + + | Name | Relationship | Address | Phone | + + + + + | [employer] | ECON | [phone] | | | | | Unknown | | + + + + + Care Team Providers + +------+ + | Care Social Media Senior Associate Name | Role | Phone | [...] | [address] [place], [place] | [place] [address] | | | | | [address] | [phone] | | | | | [phone] | | | +--------+ + + + [...] | | | | | [place] [address] | | | | | | [phone] | | | | | | | | +--------+ + + + + | 07/23/ | Office | Pulmonology | Helen Astudillo | | | 2019 | Visit | | MD Joey Suh | | | | | | [address] [place] | | | | | | [place] [address] | | | | | | [phone] | | | | | | | | +--------+ + + + + documented as of this encounter Visit Diagnoses Not on filedocumented in this encounter"
--- OUTSIDE RECORDS SUMMARY | ~2020-05-02 | XMS | Encounter Summary ---
Demographics + + + | Address | [address] | | | [place] [address] | + + + | Home Phone [...] + + + | Author | [facility] | + + + | Organization | [facility] | + + + | Address | Unknown | + + + | Phone | Unavailable | + + + Support + + +---------+ + | Name | Relationship | Address | Phone | + + +---------+ + | Lidia Thibodeaux | ECON | Unknown | | + + +---------+ + Care Team Providers + +------+ + | Care Milled Rubber Tender Name | Role | Phone | + +------+ + | Yuni Shrestha | PCP | | + +------+ + Encounter Details +--------+ + + + + | Date | Type | Department | Care Team | Description | +--------+ + + + + | 05/17/ | High School Art Teacher | Pulmonary & | Oneal Morejon MD | | | 2012 | | Critical Care | [address] | | | | | Medicine at | [facility], | | | | | [facility] | [place] [address] | | | | | [address] | [phone] | | | | | [facility] | | | | | | [place], [address] Floor | | | | | | [place], [place] | | | | | | [address] | | | | | | [phone] | | | +--------+ + + + [...]
--- OUTSIDE RECORDS SUMMARY | ~2020-05-02 | XMS | Encounter Summary ---
Demographics + + + | Address | [address] | | | [place] [address] | + + + | Home Phone [...] + | Organization | [facility] | | | and [place] | + + + | Address | Unknown | + + + | Phone | Unavailable | + + + Support + + + + + | Name | Relationship | Address | Phone | + + + + + | [employer] | ECON | [phone] | | | | | Unknown | | + + + + + Care Team Providers + +------+ + | Care Application Internship Name | Role | Phone | [...] | | | | | | [place] [address] | | | | | | [phone] | | | +--------+ + + + [...] | | | | | | [place] [address] | | | | | | [phone] | | | | | | | | +--------+ + + + + | 07/23/ | Office | Pulmonology | Helen Astudillo | | | 2019 | Visit | | MD Joey [address] | | | | | | [address] [place] | | | | | | [place] [address] | | | | | | [phone] | | | | | | | [...] + + | [address]. | [address] | [place] | [phone] | | [facility] | | [address] | | | - LABORATORY | | | | + + + + + documented in this encounter Visit Diagnoses Not on filedocumented in this encounter"
--- OUTSIDE RECORDS SUMMARY | ~2020-05-02 | XMS | Encounter Summary ---
Demographics + + + | Address | [address] | | | [place] [address] | + + + | Home Phone [...] | Organization | [facility] | | | and [place]am[place] | + + + | Address | Unknown | + + + | Phone | Unavailable | + + + Support + + + + + | Name | Relationship | Address | Phone | + + + + + | [employer] | ECON | [id number] | | | | | Unknown | | + + + + + Care Team Providers + +------+ + | Care Earthmoving Plant Operator Name | Role | Phone | [...] | | [address] [place] | [place], [place] | | | | | [place] | [address] | | | | | [address] | [phone] | | | | | [phone] | | | +--------+ + + + [...] | | | | | [place] [address] | | | | | | [phone] | | | | | | | | +--------+ + + + + | 07/23/ | Office | Pulmonology | Helen Astudillo | | | 2019 | Visit | | MD Joey [address] W | | | | | | [address] | | | | | | [place] [address] | | | | | | [phone] | | | | | | | | +--------+ + + + + documented as of this encounter Visit Diagnoses Not on filedocumented in this encounter"
--- OUTSIDE RECORDS SUMMARY | ~2020-05-02 | XMS | Encounter Summary ---
Demographics + + + | Address | [address] | | | [place] [address] | + + + | Home Phone [...] | [facility] | | | and [place]am[place] | + + + | Address | Unknown | + + + | Phone | Unavailable | + + + Support + + + + + | Name | Relationship | Address | Phone | + + + + + | [employer] | ECON | [phone] | | | | | Unknown | | + + + + + Care Team Providers + +------+ + | Care Clinical Dietetic Technician Name | Role | Phone | [...] | | | Pulmonology | pulmonary | [address] | [address] | | | | | hypertension | [address] | [place] | | | | | (HCC) | [place], | [place], [place] | | | | | Hypoxemia | [place] | [address] Phone: | | | | | Procedures | [address] | [phone] | | | | | F/U APPT | Phone: | Fax: | | | | | [facility] | [phone] | [phone] | | | | | 01/29/2020 | Fax: | | | | | | | [phone] | | + +--------+ + + + + Encounter Details +--------+---------+ + + + | Date | Type | Department | Care Team | Description | +--------+---------+ + + + | 04/16/ | Office | [facility] | Helen Astudillo | Primary pulmonary | | 2020 | Visit | PULMONARY [address] | MD Vikash [address] | hypertension (HCC) | | | | [place], | [address] [place] | (Primary Dx); | | | | [place] [address] | [place] [address] | Chronic obstructive | | | | [phone] | [phone] | pulmonary disease, | | | | [...] is followed by Dr. Lashae Rivera, at [facility] in [place], [place] for pulmona ry HTN. - Patient recently admitted to hospital 01/31 to 02/19/2020 at [facility] for ARDS secondar y to Metapneumovirus pneumonia [...] since her hosp italization in 01/2020 at [facility]. - She has been prescribed to do [...] with Bipap. - She lives in a nursing home. She is able to feed herself and [...] Plan: 1. Primary pulmonary hypertension (HCC) PFT [facility] 2. Chronic obstructive pulmonary disease, unspecified COPD type (HCC) PFT [facility] 3. Chronic hypoxemic respiratory failure (HCC) Pulmonary [...] | | | | | [place], [place] [address] | | | | | | [phone] | | | | | | | | +--------+ + + + + | 07/23/ | Office | Pulmonology | Helen Astudillo | | | 2019 | Visit | | MD [address] | | | | | | [address] [place] | | | | | | [place], [place] [address] | | | | | | [phone] | | | | | | | | +--------+ + + + + + +------+--------+ + + | Name | Type | Priori | Associated Diagnoses | Order Schedule | | | | ty | | | + +------+--------+ + + | PFT [facility] | PFT | Routin | Primary pulmonary | Expected: | | | | e | hypertension (HCC) | 07/17/2020, Expires: | | | | | Chronic obstructive | 04/16/2021 | | | | | pulmonary disease, | | | | | | unspecified COPD | | | | | | type (HCC) | | + +------+--------+ + + documented as [...]
--- OUTSIDE RECORDS SUMMARY | ~2020-05-02 | XMS | Encounter Summary ---
Demographics + + + | Address | [address] | | | [place] [address] | + + + | Home Phone [...] Organization | [facility] | | | and [place] | + + + | Address | Unknown | + + + | Phone | Unavailable | + + + Support + + + + + | Name | Relationship | Address | Phone | + + + + + | [employer] | ECON | [phone] | | | | | Unknown | | + + + + + Care Team Providers + +------+ + | Care Pigskin Trimmer Name | Role | Phone | [...] [place], [place] | | | | | [address] | [address] | | | | | [phone] | [phone] | | | | | | | [...] | | | | | [place] [address] | | | | | | [phone] | | | | | | | | +--------+ + + + + | 07/23/ | Office | Pulmonology | Helen Astudillo | | | 2019 | Visit | | MD [address] | | | | | | [address] | | | | | | [place] [address] | | | | | | [phone] | | | | | | | | +--------+ + + + + documented as of this encounter Visit Diagnoses Not on filedocumented in this encounter"
--- OUTSIDE RECORDS SUMMARY | ~2020-05-02 | XMS | Encounter Summary ---
Demographics + + + | Address | [address] | | | [place] [address] | + + + | Home Phone [...] Organization | [facility] | | | and [place]am[place] | + + + | Address | Unknown | + + + | Phone | Unavailable | + + + Support + + + + + | Name | Relationship | Address | Phone | + + + + + | [employer] | ECON | [phone] | | | | | Unknown | | + + + + + Care Team Providers + +------+ + | Care Cost Clerk Name | Role | Phone | [...] MD | obstructive | | | | [place], | | pulmonary disease) | | | | [place] [address] | | (HCC) (Primary Dx); | | | | [phone] | | Pulmonary | | | | [...] | | | | | [place] [address] | | | | | | [phone] | | | | | | | | +--------+ + + + + | 07/23/ | Office | Pulmonology | Helen Astudillo | | 2019 | Visit | | MD Joey [address] | | | | | | [address] | | | | | | [place] [address] | | | | | | [phone] | | | | | | | [...]
--- OUTSIDE RECORDS SUMMARY | ~2020-05-02 | XMS | Encounter Summary ---
Demographics + + + | Address | [address] | | | [place] [address] | + + + | Home Phone [...] + | Organization | [facility] | | | and Abram[place] | + + + | Address | Unknown | + + + | Phone | Unavailable | + + + Support + + + + + | Name | Relationship | Address | Phone | + + + + + | [employer] | ECON | [phone] | | | | | Unknown | | + + + + + Care Team Providers + +------+ + | Care Early Childhood Aide Classroom Name | Role | Phone | + +------+ + | Yuni Shrestha | PCP | | + +------+ + Reason for Visit +---------+--------+ + | Reason | Onset | Comments | | | Date | | +---------+--------+ + | Results | 08/21/ | nocturnal oximetry | | | 2014 | | +---------+--------+ + Encounter Details +--------+ + + + + | Date | Type | Department | Care Team | Description | +--------+ + + + + | 08/21/ | Telephone | [facility] [place] | [place], | Results (nocturnal | | 2014 | | PULMONARY [address] | Vera Farrar MD | oximetry) | | | | [place], | | | | | | [place] [address] | | | | | | [phone] | | | +--------+ + + + [...] per Marry. Orders sent to [facility] y signed by Tarah Nino RN at [...] | | | | | [place] [address] | | | | | | [phone] | | | | | | | | +--------+ + + + + | 07/23/ | Office | Pulmonology | Helen Astudillo | | | 2019 | Visit | | MD Vikash [address] | | | | | | [address] | | | | | | [place] [address] | | | | | | [phone] | | | | | | | [...]
--- OUTSIDE RECORDS SUMMARY | ~2020-05-02 | XMS | Encounter Summary ---
Demographics + + + | Address | [address] | | | [place] [address] | + + + | Home Phone [...] | Organization | [facility] | | | and [place]am[place] | + + + | Address | Unknown | + + + | Phone | Unavailable | + + + Support + + + + + | Name | Relationship | Address | Phone | + + + + + | [employer] | ECON | [phone] | | | | | Unknown | | + + + + + Care Team Providers + +------+ + | Care Electron Microprobe Operator Name | Role | Phone | [...] + + | 01/23/ | Office | [facility] | Jacky Calderon PA | Primary central | | 2013 | Visit | SLEEP DISORDER [address] | [address] | sleep apnea (Primary | | | | [address] [place] | [place], [place] | Dx) | | | | [place] [address] | [address] | | | | | [phone] | | | +--------+---------+ + + + [...] was: 12/26/2013 date of polysomnography: 03/13/2013 at [facility] AHI: 64.2 O2%: n/a Machine type: Respironics BiPAP Auto with ResMed Quattro FX full face mask obtained from: [facility] pressure: 16/5 cm with backup rate [...] months, sooner prn. Fifteen minutes were spent [id number] , with the majority of time spent in counseling. Jacky Calderon PA-C cc: VIKAS Beal-Xiang Lainez MD documented in this enco unter Miscellaneous Notes Miscellaneous - [facility] - 01/23/2014 12:00 AM PDT documented in [...] CAM | | | | | | [place] [address] | | | | | | [phone] | | | | | | | | +--------+ + + + + | 07/23/ | Office | Pulmonology | Helen Astudillo | | | 2019 | Visit | | MD Vikash [address] | | | | | | [address] | | | | | | [place] [address] | | | | | | [phone] | | | | | | | | +--------+ + + + + documented as of this encounter Visit Diagnoses + + | Diagnosis | + + | Primary central sleep apnea - Primary | + + documented in this encounter"
--- OUTSIDE RECORDS SUMMARY | ~2020-05-02 | XMS | Encounter Summary ---
Demographics + + + | Address | [address] | | | [place] [address] | + + + | Home Phone [...] + | Organization | [facility] | | | and [place]am[place] | + + + | Address | Unknown | + + + | Phone | Unavailable | + + + Support + + + + + | Name | Relationship | Address | Phone | + + + + + | [employer] | ECON | [phone] | | | | | Unknown | | + + + + + Care Team Providers + +------+ + | Care Producer Name | Role | Phone | + +------+ + | Gela Trimble NP | PCP | | + +------+ + Reason for Visit + +--------+ + | Reason | Onset | Comments | | | Date | | + +--------+ + | Appointment | 05/07/ | | | | 2012 | | + +--------+ + Encounter Details +--------+ + + + + | Date | Type | Department | Care Team | Description | +--------+ + + + + | 05/07/ | Telephone | [facility] [place] | [place], | Appointment | | 2012 | | PULMONARY [address] | Vera Farrar MD | | | | | [place], | | | | | | [place] [address] | | | | | | [phone] | | | +--------+ + + + [...] this encounter Miscellaneous Notes Telephone Encounter - Nati Sanches - 06/22/2013 9:51 AM PDTPatient is scheduled f or 07/04/13 elephone Jose Carlos deshpandeanaer - Nati Sanches - 05/07/2013 11:52 AM PDTJENARO CALLED PATIENT 7-03-12 TO Amadou BISHOP A NEW PATIENT CONSULT. THE [employer] PROJECT STATED THAT SHE IS IN THE HOSPITAL IN [facility]. THEY WILL CALL BACK TO SCHEDULE WHEN SHE IS DISCHARGED documented in this encounter Plan of Treatment [...] | | | | | [place] [address] | | | | | | [phone] | | | | | | | | +--------+ + + + + | 07/23/ | Office | Pulmonology | Baudilio Helen | | | 2019 | Visit | | MD Vikash [address] | | | | | | [address] | | | | | | [place] [address] | | | | | | [phone] | | | | | | | | +--------+ + + + + documented as of this encounter Visit Diagnoses Not on filedocumented in this encounter"
--- OUTSIDE RECORDS SUMMARY | ~2020-05-02 | XMS | Encounter Summary ---
Demographics + + + | Address | [address] | | | [place] [address] | + + + | Home Phone [...] Team Providers + +------+ + | Care Cmo & President Name | Role | Phone | [...] [address] | | | | | | [place], [place] | | | | | | [address] | | | +--------+ + + + [...]
--- OUTSIDE RECORDS SUMMARY | ~2020-05-02 | XMS | Encounter Summary ---
Demographics + + + | Address | [address] | | | [place] [address] | + + + | Home Phone [...] | [facility] | | | and Abram[place] | + + + | Address | Unknown | + + + | Phone | Unavailable | + + + Support + + + + + | Name | Relationship | Address | Phone | + + + + + | [employer] | ECON | [phone] | | | | | Unknown | | + + + + + Care Team Providers + +------+ + | Care Pole Incisor Operator Name | Role | Phone | + +------+ + | Yuni Shrestha | PCP | | + +------+ + Encounter Details +--------+ + + + + | Date | Type | Department | Care Team | Description | +--------+ + + + + | 06/30/ | Abstract | [facility] [place] | [facility], | | | 2015 | | GASTROENTEROLOGY | BRITTANY Maddox [address] | | | | | [address] [place] | [address] | | | | | [address] [place], [place] | [place] | | | | | [address] | [address] | | | | | [phone] | | | +--------+ + + + [...] | | | | | [place] [address] | | | | | | [phone] | | | | | | | | +--------+ + + + + | 07/23/ | Office | Pulmonology | Baudilio Helen | | | 2020 | Visit | | MD Vikash [address] | | | | | | [address] [place] | | | | | | [place] [address] | | | | | | [phone] | | | | | | | [...] documented in this encounter Results External Lab: CBC (06/10/2016) + +--------+ + + + | [...] + +---------+ + + External Lab: EDSON (06/10/2016) + +-------+ + + + | [...]
--- OUTSIDE RECORDS SUMMARY | ~2020-05-02 | XMS | Encounter Summary ---
Demographics + + + | Address | [address] | | | [place] [address] | + + + | Home Phone [...] + + | Author | [facility] | + + + | Organization | [facility] | + + + | Address | Unknown | + + + | Phone | Unavailable | + + + Support + + +---------+ + | Name | Relationship | Address | Phone | + + +---------+ + | Lidia Thibodeaux | ECON | Unknown | | + + +---------+ + Care Team Providers + +------+ + | Care Rail Car Repair Carman Name | Role | Phone | + [...] | | | | | Floor | [place], [place] | | | | | | [place], [place] | [address] | | | | | | [address] | Phone: | | | | | | Phone: | [phone] | | | | | | [phone] | Fax: | | | | | | Fax: | [phone] | | | | | | [phone] | | +--------+--------+ + + + + Encounter Details +--------+ + + + + | Date | Type | Department | Care Team | Description | +--------+ + + + + | 03/27/ | Outside | Neurophysiology | Mustapha Vidal, | | | 2012 | Referral | EEG at [facility] [address] | MD [place] | | | | Order | [facility] | [facility] [address] | | | | | [employer] | [address] | | | | | [address], [address] Floor | [place] [address] | | | | | [place], [place] | [phone] | | | | | [address] | | | | | | [phone] | | | +--------+ + + + [...] 1965 Medical | | | Record Number: [id number] Date of Test: 03/27/2013 Place of | | | Service: [facility] Department: EEG [facility] [id number] | | | ROUTINE EEG - [facility] Reason for Exam: Evaluate for | [...] | Clinical Events: No pushbutton events or electronic train control technician notes of unusual | | | [...] Laws M.D. | | | Suggested CPT: 92619 - EEG Routine Awake & Asleep Suggested Dx: | | | 780.39-Convulsions | | + + + documented in this encounter Visit Diagnoses Not on filedocumented in this encounter"
--- OUTSIDE RECORDS SUMMARY | ~2020-05-02 | XMS | Encounter Summary ---
Demographics + + + | Address | [address] | | | [place] [address] | + + + | Home Phone [...] Organization | [facility] | | | and [place]am[place] | + + + | Address | Unknown | + + + | Phone | Unavailable | + + + Support + + + + + | Name | Relationship | Address | Phone | + + + + + | [employer] | ECON | [id number] | | | | | Unknown | | + + + + + Care Team Providers + +------+ + | Care Tank Crewmember Name | Role | Phone | + [...] | | | | | pharyngeal | INTAKE NURSE [address] | INTAKE NURSE [address] | | | | | phase | [address] | [address] | | | | | Procedures | [place], | [address] | | | | | Office Visit | [place] [address] | [place], | | | | | | Phone: | [place] [address] | | | | | | [phone] | Phone: | | | | | | Fax: | [phone] | | | | | | [phone] | Fax: | | | | | | | [phone] | +--------+--------+ + + + + Encounter Details +--------+---------+ + + + | Date | Type | Department | Care Team | Description | +--------+---------+ + + + | 01/04/ | Office | [facility] [place] | Layla, | Dysphagia, | | 2016 | Visit | GASTROENTEROLOGY | Varsha INTAKE NURSE [address] | unspecified | | | | [address] [place] | [address] | dysphagia (Primary | | | | [address] [place], [place] | [place], [place] | Dx); Chronic | | | | [address] | [address] | obstructive | | | | [phone] | | pulmonary disease, | | | | | | unspecified COPD | | | | | | type (HCC); | | | | | | Developmental delay; | | | | | | GLORIA (obstructive | | | | | | sleep apnea); | | | | | | Seizure disorder | | | | | | ([facility]) | +--------+---------+ + + + Social [...] Years of Education: N/A Occupational History Disabled. [employer] Social History Main Topics Smoking status: Former Smoker -- 1.00 packs/day for 20 years Types: Cigarettes Quit date: 12/15/2015 Smokeless tobacco: Never Used Comment: Smoking a cigarette every 2 hours Alcohol Use: No Drug Use: No Sexual Activity: Not on file Other Topics Concern Not on file Social History Narrative Lives at [employer]. Review of systems: Constitutional:Denies any fevers, chills, [...] prescribed. Discussed that if PPI is used long term care phlebotomist, Calcium an d Vitamin D should be [...] | | | | | | [place] [address] | | | | | | [phone] | | | | | | | | +--------+ + + + + | 07/23/ | Office | Pulmonology | Helen Astudillo | | 2019 | Visit | | MD Vikash [address] | | | | | | [address] [place] | | | | | | [place] [address] | | | | | | [phone] | | | | | | | | +--------+ + + + + + +---------+--------+ + + [...]
--- OUTSIDE RECORDS SUMMARY | ~2020-05-02 | XMS | Encounter Summary ---
Demographics + + + | Address | [address] | | | [place] [address] | + + + | Home Phone [...] | Organization | [facility] | | | and Abram[place] | + + + | Address | Unknown | + + + | Phone | Unavailable | + + + Support + + + + + | Name | Relationship | Address | Phone | + + + + + | [employer] | ECON | [id number] | | | | | Unknown | | + + + + + Care Team Providers + +------+ + | Care Features Editor Name | Role | Phone | [...] [place] | | | | | | [address] | | | | | | [phone] | | | +--------+ + + + [...] | | | | | [place] [address] | | | | | | [phone] | | | | | | | | +--------+ + + + + | 07/23/ | Office | Pulmonology | Helen Astudillo | | | 2019 | Visit | | MD Vikash [address] | | | | | | [address] [place] | | | | | | [place] [address] | | | | | | [phone] | | | | | | | [...] | LV systolic and diastolic functions NML, Bandon visually estimates | | | LVEF 60-65%. [...] | LV systolic and diastolic functions NML, Bandon visually estimates | | | LVEF 60-65%. [...] pressures of | | | 10-15mmHg. MEASUREMENTS Marketing Services Rep: | | | Authenticated by: Avila Haynes DO Report Date/Time: -- | | | [id number] | | + + + + + | Procedure Note | + + | Gabriel Zafar Conversion - 06/22/2019 10:54 AM PDT Patient Name: Julia Rowley of | | : 1965 Performing Physician: Avila Haynes | | DO INDICATIONS P | | ulmonary HTN CONCLUSIONS 1. Sinus rhythm. TDS. 2. Cardiac chamber dimensions | | grossly NML. LV systolic and diastolic functions NML, Bandon visually estimates LVEF | | 60-65%. RV [...] venous pressures of 10-15mmHg. | | MEASUREMENTS Marketing Services Rep: COLETTEuthenticated by: Avila Moses | | Date/Time: -- [id number]:44 IMPRESSION: 1. Sinus rhythm. TDS. 2. Cardiac | | chamber dimensions grossly NML. LV systolic and diastolic functions NML, Bandon | | visually estimates LVEF 60-65%. RV [...] | |MEASUREMENTS | | | | | |Marketing Services Rep: RUDI | |Authenticated by: Avila Haynes DO | |Report Date/Time: -- [id number] | | | |IMPRESSION: | |1. Sinus rhythm. TDS. 2. Cardiac chamber dimensions grossly NML. LV systolic and diastoli c functions NML, Bandon visually estimates LVEF 60-65%. RV grossly NML. 3. Valves grossly N ML. No /AI. Mild MR, mild | |TR, trace PI. 4. No Pericardial effusion. | | 5. IVC plethoric, est systolic PAP 36-41mmHg, borderline. | + + documented in this encounter Visit Diagnoses Not on filedocumented in this encounter"
--- OUTSIDE RECORDS SUMMARY | ~2020-05-02 | XMS | Encounter Summary ---
Demographics + + + | Address | [address] | | | [place] [address] | + + + | Home Phone [...] Organization | [facility] | | | and Abram[place] | + + + | Address | Unknown | + + + | Phone | Unavailable | + + + Support + + + + + | Name | Relationship | Address | Phone | + + + + + | [employer] | ECON | [phone] | | | | | Unknown | | + + + + + Care Team Providers + +------+ + | Care Health Companion Name | Role | Phone | + +------+ + | Yuni Shrestha | PCP | | + +------+ + Reason for Visit + +--------+ + | Reason | Onset | Comments | | | Date | | + +--------+ + | Medical Clearance | 06/30/ | | | | 2015 | | + +--------+ + Encounter Details +--------+ + + + + | Date | Type | Department | Care Team | Description | +--------+ + + + + | 06/30/ | Telephone | [facility] [place] | Fatou, | Medical Clearance | | 2015 | | PULMONARY [address] | Vera Farrar MD | | | | | [place], | | | | | | [place] [address] | | | | | | [phone] | | | +--------+ + + + [...] Jia Noriega RN - 06/30/2016 3:10 PM PDTNotified Andra that Dr Arthur cannot comment on a patient he has not seen himself. Dr Lainez is no longer her but her records are available in [employer] or we'd be happy to assist with referral to [facility] program research specialist. Andra will let us know if they need our assistance. elephone Encounter - Nickie Noriega RN - 06/30/2016 2:21 PM PDTAndra from GI left message with PSR requesting surgical clearance prior to upper endoscopy and colonoscopy. Attempted to call her back but call wou ld not go through at [phone]. documented in this encounter Plan of Treatment [...] | | | | | [place] [address] | | | | | | [phone] | | | | | | | | +--------+ + + + + | 07/23/ | Office | Pulmonology | Helen Astudillo | | 2019 | Visit | | MD Vikash [address] | | | | | | [address] [place] | | | | | | [place] [address] | | | | | | [phone] | | | | | | | | +--------+ + + + + documented as of this encounter Visit Diagnoses Not on filedocumented in this encounter"
--- OUTSIDE RECORDS SUMMARY | ~2020-05-02 | XMS | Encounter Summary ---
Demographics + + + | Address | [address] | | | [place] [address] | + + + | Home Phone [...] Organization | [facility] | | | and [place]am[place] | + + + | Address | Unknown | + + + | Phone | Unavailable | + + + Support + + + + + | Name | Relationship | Address | Phone | + + + + + | [employer] | ECON | [phone] | | | | | Unknown | | + + + + + Care Team Providers + +------+ + | Care Malt Loader Name | Role | Phone | [...] | | | | | | [place] [address] | | | | | | [phone] | | | +--------+ + + + [...] | | | | | [place] [address] | | | | | | [phone] | | | | | | | | +--------+ + + + + | 07/23/ | Office | Pulmonology | Helen Astudillo | | | 2019 | Visit | | MD Vikash [address] | | | | | | [address] [facility] | | | | | | [place] [address] | | | | | | [phone] | | | | | | | [...] +--------+ + + + | EXTERNAL LAB: CKMB | Routin | 10/07/2014 | | Results for this | | | e | 1:29 PM | | procedure are in the | | | | PST | | results section. | + +--------+ + + + | EXTERNAL LAB: CK, | Routin | 10/07/2014 | | Results [...] + + + | EXTERNAL LAB: Charan TYPE | Routin | 10/07/2014 | | Results [...] + +---------+ + + External Lab: BUN (10/07/2014 1:29 PM PST) + +-------+ + [...] | + +---------+ + + External Lab: Lyn INR (10/07/2014 1:29 PM PST) + +-------+ [...] eGFR, | 58 (A) | 60 - 999,999 | EXTERNAL [...] St | [place] | | | [facility] | | [address] | | | - LABORATORY | [...] + + | OLIVA HOFFMAN. | [address] | [place] | | | [facility] | | [address], [facility] | | | - LABORATORY | | | | + + + + + documented in this encounter Visit Diagnoses Not on filedocumented in this encounter"
--- OUTSIDE RECORDS SUMMARY | ~2020-05-02 | XMS | Encounter Summary ---
Demographics + + + | Address | [address] | | | [place] [address] | + + + | Home Phone | | + + + | Preferred Language | Unknown | + + + | Marital Status | Single | + + + | Mandaen Affiliation | NRP | + + + | Race | White | + + + | Ethnic Group | Not or | + + + Author + + + | Author | [facility] | + + + | Organization | [facility] | + + + | Address | Unknown | + + + | Phone | Unavailable | + + + Support + + +---------+ + | Name | Relationship | Address | Phone | + + +---------+ + | Lidia Thibodeaux | ECON | Unknown | | + + +---------+ + Care Team Providers + +------+ + | Care Membership Solicitor Name | Role | Phone | + [...] | | [place] | [address] | | | | | [address] | [phone] | | | | | [phone] | | | +--------+ + + + [...]
--- OUTSIDE RECORDS SUMMARY | ~2020-05-02 | XMS | Encounter Summary ---
Demographics + + + | Address | [address] | | | [place] [address] | + + + | Home Phone [...] Organization | [facility] | | | and [place]am[place] | + + + | Address | Unknown | + + + | Phone | Unavailable | + + + Support + + + + + | Name | Relationship | Address | Phone | + + + + + | [employer] | ECON | [id number] | | | | | Unknown | | + + + + + Care Team Providers + +------+ + | Care Livestock Brands Inspector Name | Role | Phone | [...] + | 08/27/ | Office | [facility] | [place], | Primary pulmonary | | 2012 | Visit | PULMONARY [address] | Vera Farrar MD | hypertension (HCC) | | | | [place] [facility], | | (Primary Dx); COPD | | | | [place] [address] | | (chronic obstructive | | | | [phone] | | pulmonary disease) | | | [...] from the original. Pulmonary Follow Up MD Bryan [place] [facility] [address] [place], [address] HPI Margarita Rowley is a 47 y.o. female [facility] for follow up of pulmonary hypertension. At their last visit, we had written for her to start tadalafil. She saw Miguel Desouza, who rec ommended that she start a new medication, called Shira. They did also stop her hormone re [...] Years of Education: N/A Occupational History Disabled. [employer] Social History Main Topics Smoking status: Former Smoker -- 1.0 packs/day for 20 years Types: Cigarettes Quit date: 05/14/2013 Smokeless tobacco: None Alcohol Use: Yes history of abuse Drug Use: Yes Special: Cocaine history of cocaine use Sexually Active: None Other Topics Concern None Social History Narrative Lives at [employer]. Allergies: Allergies Allergen Reactions Erythromycin Metronidazole Penicillins [...] Active Take 2,000 Units by mouth Daily. [place] Starch POWD Active by Does not apply [...] patch onto the skin every 24 hours. Gregory-3 Fatty Acids (SEA-OMEGA 30) 1200 MG CAPS [...] there, and may or may not h ruie been on Adcirca at that time (I am not sure if it had been received from the pharmacy amara bey). Plan 1.Clarify stopping Adcirca and starting Letairis. [...] to ensure accuracy; however, inadvertent computerized manager of production errors may be pre sent. documented in [...] | | | | | [place] [address] | | | | | | [phone] | | | | | | | | +--------+ + + + + | 07/23/ | Office | Pulmonology | Helen Astudillo | | | 2019 | Visit | | MD Vikash [address] | | | | | | [address] | | | | | | [place] [address] | | | | | | [phone] | | | | | | | [...] | 1.06 | 0.60 - 1.30 | [facility] | | | | | mg/dL | [facility] | | | | | [facility] | | | | | | [facility] - | | | | | | LABORATORY | | + + + + + + | Estimated | 55 (L)Comment: For | >60 mL/min/A | [facility] | | | GFR | -Americans, | [...] + | [facility] | [address] | [place], [place] | [phone] | | [facility] | | [address] | | | - LABORATORY | | | | + + + + + | [facility] | [address] | [place], [place] | | | [facility] | | [address] | | | - LABORATORY [...] [address] | [place] | [phone] | | [facility] | | [address] | | | - LABORATORY | | | | + + + + + | [address] | [address] | [facility] [place] | | | [facility] | | [address], [facility] | | [...]
--- OUTSIDE RECORDS SUMMARY | ~2020-05-02 | XMS | Encounter Summary ---
Demographics + + + | Address | [address] | | | [place] [address] | + + + | Home Phone [...] Organization | [facility] | | | and [place]am[place] | + + + | Address | Unknown | + + + | Phone | Unavailable | + + + Support + + + + + | Name | Relationship | Address | Phone | + + + + + | [employer] | ECON | [phone] | | | | | Unknown | | + + + + + Care Team Providers + +------+ + | Care Client Solutions Director Name | Role | Phone | [...] [place], [place] | | | | | [address] | [address] | | | | | [phone] | [phone] | | | | | | | [...] | | | | | [place] [address] | | | | | | [phone] | | | | | | | | +--------+ + + + + | 07/23/ | Office | Pulmonology | Helen Astudillo | | | 2019 | Visit | | MD [address] | | | | | | [address] | | | | | | [place] [address] | | | | | | [phone] | | | | | | | | +--------+ + + + + documented as of this encounter Visit Diagnoses Not on filedocumented in this encounter"
--- OUTSIDE RECORDS SUMMARY | ~2020-05-02 | XMS | Encounter Summary ---
Demographics + + + | Address | [address] | | | [place] [address] | + + + | Home Phone [...] + | Organization | [facility] | | | and [place] | + + + | Address | Unknown | + + + | Phone | Unavailable | + + + Support + + + + + | Name | Relationship | Address | Phone | + + + + + | [employer] | ECON | [phone] | | | | | Unknown | | + + + + + Care Team Providers + +------+ + | Care Chicken Dresser Name | Role | Phone | + +------+ + | Gela Trimble NP | PCP | | + +------+ + Encounter Details +--------+ + + + + | Date | Type | Department | Care Team | Description | +--------+ + + + + | 08/27/ | Hospital | [facility] | Saharaenstein, | Primary pulmonary | | 2012 | Encounter | [facility] | Vera Farrar MD | hypertension (HCC) | | | | [address] | | | | | | [place] | | | | | | [address] | | | | | | [phone] | | | +--------+ + + + [...] + + + +---------+ + + | [place] Starch POWD | by Does not apply [...] + + + +---------+ + + | [place]-3 Fatty | Take by mouth. | | [...] | | | | | [place] [address] | | | | | | [phone] | | | | | | | | +--------+ + + + + | 07/23/ | Office | Pulmonology | Helen Astudillo | | | 2019 | Visit | | MD Vikash [address] | | | | | | [address] [place] | | | | | | [place] [address] | | | | | | [phone] | | | | | | | [...] [place] | | | | | | Winter [...] | | GFR | -Americans, | | ARACELI | | | | please multiply [...] + | [facility] | [address] | [place], [place] | [phone] | | [facility] | | [address] | | | - LABORATORY | | | | + + + + + | [facility] | [address] | [place], [place] | | | [facility] | | [address], [facility] | | | - [...] + | [facility] | [address] | [place] | [phone] | | [facility] | | [address] | | | - LABORATORY | | | | + + + + + | [facility] | [address] | [place] | | | [facility] | | [address], [facility] | | | - LABORATORY | | | | + + + + + documented in this encounter Visit Diagnoses + + | Diagnosis | + + | Primary pulmonary hypertension (HCC) Primary pulmonary hypertension | + + documented in this encounter"
--- OUTSIDE RECORDS SUMMARY | ~2020-05-02 | XMS | Encounter Summary ---
Demographics + + + | Address | [address] | | | [place] [address] | + + + | Home Phone [...] Author + + + | Author | [facility] | + + + | Organization | [facility] | + + + | Address | Unknown | + + + | Phone | Unavailable | + + + Support + + +---------+ + | Name | Relationship | Address | Phone | + + +---------+ + | Lidia Thibodeaux | ECON | Unknown | | + + +---------+ + Care Team Providers + +------+ + | Care Compressed Gases Tester Name | Role | Phone | [...] | | [place], [place] | [address] | | | | | [address] | [phone] | | | | | [phone] | | | +--------+ + + + [...]
--- OUTSIDE RECORDS SUMMARY | ~2020-05-02 | XMS | Encounter Summary ---
Demographics + + + | Address | [address] | | | [place] [address] | + + + | Home Phone [...] [facility] | | | and [place] | + + + | Address | Unknown | + + + | Phone | Unavailable | + + + Support + + + + + | Name | Relationship | Address | Phone | + + + + + | [employer] | ECON | [phone] | | | | | Unknown | | + + + + + Care Team Providers + +------+ + | Care Weaver [place] Name | Role | Phone | + +------+ + | Gela Trimble MACHINE ROPE MAKER | PCP | | + +------+ + [...] | Primary | Offenstein, | [address] | | | | | pulmonary | Vera B, | [place], | | | | | hypertension | MD [address] | [place] | | | | | (HCC) | [address] | [address] | | | | | Procedures | [place], | Phone: | | | | | ECHO | [place] [address] | [phone] | | | | | Complete | | Fax: | | | | | | | [phone] | +--------+--------+ + + + + Reason [...] | | | Pulmonology | airway | MACHINE ROPE MAKER [address] | MD [address] | | | | | obstruction, | [address] | [address] | | | | | not | [address] | [place], | | | | | elsewhere | [place], | [place] [address] | | | | | classified | [place] [address] | | | | | | COPD | Phone: | | | | | | Procedures | [phone] | | | | | | [address] | Fax: | | | | | | UP | [phone] | | +--------+--------+ + + + + Encounter Details +--------+---------+ + + + | Date | Type | Department | Care Team | Description | +--------+---------+ + + + | 06/11/ | Office | [facility] | Offenstein, | Primary pulmonary | | 2013 | Visit | PULMONARY [address] | Vera Farrar MD | hypertension | | | | [address] [place], | | (Primary Dx); [place] | | | | [place] [address] | | (obstructive sleep | | | | [phone] | | apnea); COPD | | | [...] Diagnosis Date COPD (chronic obstructive pulmonary disease) ([facility]) moderate, FEV1 1.40 (59%) Pulmonary hypertension ([facility]) severe, class 1, class 2, class 3 Bipolar disorder (HCC) PTSD (post-traumatic stress disorder) Osteoarthritis Obstructive sleep apnea AHI 64.2 Vitamin D deficiency GERD (gastroesophageal reflux disease) Hypothyroidism Seizure disorder ([facility]) Developmental delay Hypoxemia ([facility]) on 2L at rest, 4L with exertion Female stress incontinence Pyelonephritis Hypertension Impulse control disorder Hyperlipidemia Obesity Alcohol abuse Cocaine abuse Past Surgical History Past Surgical History Procedure Date Mouth surgery 2 teeth removed Cardiac catherization Social History: History Social History Marital Status: Single Spouse Name: N/A Number of Children: N/A Years of Education: N/A Occupational History Disabled. [employer] Social History Main Topics Smoking status: Former Smoker -- 1.0 packs/day for 20 years Types: Cigarettes Quit date: 05/14/2013 Smokeless tobacco: None Alcohol Use: Yes Comment: history of abuse Drug Use: Yes Special: Cocaine Comment: history of cocaine use Sexually Active: None Other Topics Concern None Social History Narrative Lives at [employer]. Allergies: Allergies Allergen Reactions Erythromycin Metronidazole Penicillins [...] TABS Take 2,000 Units by mouth Daily. [place] Starch POWD by Does not apply route [...] tablet Take 15 mg by mouth Daily. [place]-3 Fatty Acids (SEA-OMEGA 30) 1200 MG CAPS [...] doing well. We will check echocardiogram at [facility] appointment in 6 months. Continue higher dose [...] made to ensure accuracy; however, inadvertent computerized metal riveting machine operator errors may be pre sent. Electronically signed by: Vera Lainez MD 06/11/2014 8:55 documented in t his encounter Procedure Notes ONBASE SCAN THOR - 06/11/2014 12:00 AM PDTAssociated Order(s): IMAGING REPORT - EXTERNAL SC AN documented in this encount er Miscellaneous Notes Miscellaneous - ONBASE SCAN THOR - 06/11/2014 12:00 AM PDT lan of Care - ALBA LESLIE CELESTELUCI - 04/09/2014 12:00 AM PDTElec tronically signed [...] | | | | | [place] [address] | | | | | | [phone] | | | | | | | | +--------+ + + + + | 07/23/ | Office | Pulmonology | Helen Astudillo | | | 2019 | Visit | | MD [address] | | | | | | [address] | | | | | | [place] [address] | | | | | | [phone] | | | | | | | [...] Performed At | + + + | [facility] ECHOCARDIOGRAM REPORT | [place] | | STUDY DATE: 09/11/2014 PATIENT NAME: Margarita Rowley : | [place] | | 1965 PCP: Gela Trimble NP | [facility] | | CLINICAL HISTORY/DIAGNOSIS: Pulmonary hypertension A [...] | | | Ananth Salguero MD PhD [facility] 09/11/2014 10:45 | | | Motel Maid: Hung Caro, JUANITOCS, RVT, RDMS | | + + + + + | Procedure Note | + + | Roberto Salguero MD - 09/12/2014 9:12 AM [facility] | | CENTERECHOCARDIOGRAM REPORTSTUDY DATE: 09/11/2014PATIENT NAME: Margarita MooreB: | | 1965MRN: [id number]: Gela Trimble CRITICAL ACCESS HOSPITALLINICAL HISTORY/DIAGNOSIS: | | Pulmonary [...] PP mmHgLA volume: 30 mLLA index: 16 mL/x7Kityxb Inflow DT: 272 | | msIVRT: 110 msValsalva: Not neededPWDTI S wave: 7.2 cm/sPWDTI E wave: 8.0 cm/sPWDTI | | A wave: 10.4 cm/sE/A Ratio: 0.769E/E Ratio: 10.63Signed by: Artie Salguero MD | | PhD [facility] 09/11/2014 10:45 Motel Maid: Hung Caro, RDMARIANA, RVT, RDMS | |Tricuspid valve: Normal with [...] | |Signed by: Artie Salguero MD PhD [facility] | | 09/11/2014 10:45 | | | | | |Motel Maid: Hung Caro, RDCS, RVT, RDMS | + + + + + + + | Performing | Address | City/State/Zipcode | Phone Number | | Organization | | | | + + + + + | [facility] | [address] | [place] | [phone] | | [facility] | | [address] | | | - IMAGING | | [...]
--- OUTSIDE RECORDS SUMMARY | ~2020-05-02 | XMS | Encounter Summary ---
Demographics + + + | Address | [address] | | | [place] [address] | + + + | Home Phone [...] + + | Organization | [facility] | | | and [place] | + + + | Address | Unknown | + + + | Phone | Unavailable | + + + Support + + + + + | Name | Relationship | Address | Phone | + + + + + | [employer] | ECON | [phone] | | | | | Unknown | | + + + + + Care Team Providers + +------+ + | Care Driver Messenger Name | Role | Phone | + [...] [place], [place] | | | | | [address] | [address] | | | | | [phone] | [phone] | | | | | | | [...] | | | | | [place] [address] | | | | | | [phone] | | | | | | | | +--------+ + + + + | 07/23/ | Office | Pulmonology | Helen Astudillo | | | 2019 | Visit | | MD [address] | | | | | | [address] | | | | | | [place] [address] | | | | | | [phone] | | | | | | | | +--------+ + + + + documented as of this encounter Visit Diagnoses Not on filedocumented in this encounter"
--- OUTSIDE RECORDS SUMMARY | ~2020-05-02 | XMS | Encounter Summary ---
Demographics + + + | Address | [address] | | | [place] [address] | + + + | Home Phone [...] | Organization | [facility] | | | and [place]am[place] | + + + | Address | Unknown | + + + | Phone | Unavailable | + + + Support + + + + + | Name | Relationship | Address | Phone | + + + + + | [employer] | ECON | [phone] | | | | | Unknown | | + + + + + Care Team Providers + +------+ + | Care Genetics Teacher Name | Role | Phone | [...] Farrar MD | | | | | [place], | | | | | | [place] [address] | | | | | | [phone] | | | +--------+ + + + [...] Alysa Shrestha RN - 04/23/2015 11:02 AM Maryann at [facility] (her care facility) was notified that Margarita needs to have a repeat Echo in Jul 2015. She will note that for the nurse. Also she was notified that Margarita has a follow up appt scheduled f or 06/12/15. EYdomercy gillis in this encounter Plan of Treatment +--------+ + + + + | Date | Type | Specialty | Care Team | Description | +--------+ + + + + | 07/23/ | Appointment | Pulmonology | Helen Atsudillo | | | 2019 | | | MD [address] | | | | | | [address] | | | | | | [place] [address] | | | | | | [phone] | | | | | | | | +--------+ + + + + | 07/23/ | Office | Pulmonology | Helen Astudillo | | 2019 | Visit | | MD [address] | | | | | | [address] | | | | | | [place] [address] | | | | | | [phone] | | | | | | | | +--------+ + + + + documented as of this encounter Visit Diagnoses Not on filedocumented in this encounter"
--- OUTSIDE RECORDS SUMMARY | ~2020-05-02 | XMS | Encounter Summary ---
Demographics + + + | Address | [address] | | | [place] [address] | + + + | Home Phone [...] + + + | Author | [facility] | + + + | Organization | [facility] | + + + | Address | Unknown | + + + | Phone | Unavailable | + + + Support + + +---------+ + | Name | Relationship | Address | Phone | + + +---------+ + | Lidia Thibodeaux | ECON | Unknown | | + + +---------+ + Care Team Providers + +------+ + | Care Kitchen Hand Name | Role | Phone | [...] | | | Medicine at | [facility], | | | | | [facility] | [place] [address] | | | | | [address] | [phone] | | | | | [facility] | | | | | | Pavilion, 3rd Floor | | | | | | [place], [place] | | | | | | [address] | | | | | | [phone] | | | +--------+ + + + [...]
--- OUTSIDE RECORDS SUMMARY | ~2020-05-02 | XMS | Encounter Summary ---
Demographics + + + | Address | [address] | | | [place] [address] | + + + | Home Phone [...] + | Organization | [facility] | | | and [place] | + + + | Address | Unknown | + + + | Phone | Unavailable | + + + Support + + + + + | Name | Relationship | Address | Phone | + + + + + | [employer] | ECON | [phone] | | | | | Unknown | | + + + + + Care Team Providers + +------+ + | Care Heat Treat Supervisor Name | Role | Phone | + +------+ + | Yuni Shrestha | PCP | | + +------+ + Reason for Visit + +--------+ + | Reason | Onset | Comments | | | Date | | + +--------+ + | Procedure | 07/09/ | | | | 2015 | | [...] [address] | | | | | [address] [place], [place] | [place], [place] | | | | | [address] | [address] | | | | | [phone] | | | +--------+ + + + [...] h ave anyone trained in this field. Brie informed. elephone Encounter - Jcarlos, Katheryn Rodriguez RN - 07/27/2016 2:31 PM P DTReceived letter from Dr. Rivera at [facility] indicating patient's nee d for a cardiac trained Anesthesiologist to deliver the IVCS (can not have prop) for egd/col on. She also noted that patient should not miss any of her doses of Adcirca or Letrairis. I will contact the flooring sales manager and anesthesia department to see how we can proceed. Electron ically signed by Katheryn Garber RN at 07/27/2016 2:37 PM PDTTelephone Encounter - Missy Garber RN - 07/12/2016 2:12 PM PDTSpoke with MARANDA Hillman in Dr. Rivera's office at [facility] in [place]. They have been seeing the patient for moderate pulmonary hypertension for the last 3 years, and patient was referred there by Dr. Lainez. Dr. Rivera has casandra red [place] to have an egd/colon but wants a [...] wait for letter then discuss case with flooring sales manager, Valeria Pete. Monica informed. Sirena ctronically signed by Katheryn Garber RN at 07/12/2016 2:22 PM PDTTelephone Encounter - Mirela Arthur - 07/09/2016 9:21 AM Magui Rivera's office at [facility] in [place] called and s aid that they are the patient's current pulmonary team, so the patient does not need to esta blish at [facility]. They would like to speak with Katheryn about possible future procedures for t he patient, colonoscopy and EGD. Please call their office back at [phone]. Electronical ly signed by Mirela Oliveros at [...] | | | | | [place] [address] | | | | | | [phone] | | | | | | | | +--------+ + + + + | 07/23/ | Office | Pulmonology | Helen Astudillo | | 2019 | Visit | | MD [address] | | | | | | [address] [place] | | | | | | [place] [address] | | | | | | [phone] | | | | | | | | +--------+ + + + + documented as of this encounter Visit Diagnoses Not on filedocumented in this encounter"
--- OUTSIDE RECORDS SUMMARY | ~2020-05-02 | XMS | Encounter Summary ---
Demographics + + + | Address | [address] | | | [place] [address] | + + + | Home Phone [...] Organization | [facility] | | | and [place] | + + + | Address | Unknown | + + + | Phone | Unavailable | + + + Support + + + + + | Name | Relationship | Address | Phone | + + + + + | [employer] | ECON | [phone] | | | | | Unknown | | + + + + + Care Team Providers + +------+ + | Care Commercial Print Salesman Name | Role | Phone | + [...] | Gastroenterol | Diagnoses | Fady, | [place], | | | | ogy | Dysphagia, | Yuni Hanh, | Varsha, | | | | | pharyngeal | SUBSCRIPTION CREW LEADER [address] | SUBSCRIPTION CREW LEADER [address] | | | | | phase | [address] | [address] | | | | | Procedures | [place], | [address] | | | | | Office Visit | [place] [address] | [place], | | | | | | Phone: | [place] [address] | | | | | | [phone] | Phone: | | | | | | Fax: | [phone] | | | | | | [phone] | Fax: | | | | | | | [phone] | +--------+--------+ + + + + Encounter [...] esophagitis presence | | | | [address], [place] | [place], [place] | not specified | | | | [address] | [address] | (Primary Dx); | | | | [phone] | | Esophageal | | | | [...] Diagnosis Date COPD (chronic obstructive pulmonary disease) ([facility]) moderate, FEV1 1.40 (59%) [...] Years of Education: N/A Occupational History Disabled. [employer] Social History Main Topics Smoking status: Former Smoker -- 1.00 packs/day for 20 years Types: Cigarettes Quit date: 12/15/2015 Smokeless tobacco: Never Used Alcohol Use: No Drug Use: No Sexual Activity: Not on file Other Topics Concern Not on file Social History Narrative Lives at [employer]. Review of systems: Constitutional:Denies any fevers, chills, [...] | | | | | [place] [address] | | | | | | [phone] | | | | | | | | +--------+ + + + + | 07/23/ | Office | Pulmonology | Helen Astudillo | | | 2019 | Visit | | MD Vikash [address] | | | | | | [address] [place] | | | | | | [place] [address] | | | | | | [phone] | | | | | | | [...]
--- OUTSIDE RECORDS SUMMARY | ~2020-05-02 | XMS | Encounter Summary ---
Demographics + + + | Address | [address] | | | [place] [address] | + + + | Home Phone [...] Organization | [facility] | | | and [place] | + + + | Address | Unknown | + + + | Phone | Unavailable | + + + Support + + + + + | Name | Relationship | Address | Phone | + + + + + | [employer] | ECON | [phone] | | | | | Unknown | | + + + + + Care Team Providers + +------+ + | Care Rn Case Management Name | Role | Phone | [...] | Primary | Offenstein, | [address] | | | | | pulmonary | Vera B, | [place], | | | | | hypertension | MD [address] | [place] | | | | | ([facility]) | [address] | [address] | | | | | Procedures | [place], | Phone: | | | | | ECHO | [place] [address] | [phone] | | | | | Complete [place] | | Fax: | | | | | ECHO HEART | | [phone] | | | | | [place] | [...] | Primary | Offenstein, | [address] | | | | | pulmonary | Vera B, | [place], | | | | | hypertension | MD [address] | [place] | | | | | ([facility]) | [address] | [address] | | | | | Procedures | [place], | Phone: | | | | | ECHO | [place] [address] | [phone] | | | | | Complete [place] | | Fax: | | | | | ECHO HEART | | [phone] | | | | | [place] | [...] + + | 03/26/ | Hospital | [facility] | Saharaenstein, | Primary pulmonary | | 2014 | Encounter | [facility] [address] | Vera Farrar MD | hypertension | | | | [place] | [place], | | | | | [place] [address] | Technologist | | | | | [phone] | | | +--------+ + + + [...] + + + +---------+ + + | [place] Starch POWD | by Does not apply [...] + + + +---------+ + + | [place]-3 Fatty | Take by mouth. | [...] 08/06/20 | | | Therapy Supplies | [facility]'s office | | | 13 | [...] | | | | | [place] [address] | | | | | | [phone] | | | | | | | | +--------+ + + + + | 07/23/ | Office | Pulmonology | Helen Astudillo | | 2019 | Visit | | MD [address] | | | | | | [address] [place] | | | | | | [place] [address] | | | | | | [phone] | | | | | | | [...] Performed At | + + + | [facility] ECHOCARDIOGRAM REPORT | [place] | | STUDY DATE: 03/26/2015 PATIENT NAME: Margarita Rowley : | [facility] | | 1965 PCP: Physician No [facility]ICAL [facility] | | HISTORY/DIAGNOSIS: Pulmonary HTN A [...] Signed by: Derick Strong, | | | [facility] 03/26/2015 13:52 Plastics Fitter: [place], | | | RDCS, RDMS, RVT | | + + + + + + + + | Performing | Address | City/State[facility] | Phone Number | | Organization | | | | + + + + + | [facility] | [address] | [place] | [phone] | | [facility] | | [address] | | | - IMAGING | | [...]
--- OUTSIDE RECORDS SUMMARY | ~2020-05-02 | XMS | Encounter Summary ---
Demographics + + + | Address | [address] | | | [place] [address] | + + + | Home Phone [...] + | Organization | [facility] | | | and [place] | + + + | Address | Unknown | + + + | Phone | Unavailable | + + + Support + + + + + | Name | Relationship | Address | Phone | + + + + + | [employer] | ECON | [phone] | | | | | Unknown | | + + + + + Care Team Providers + +------+ + | Care Occupational Health Nursing Director Name | Role | Phone | [...] | | | | | | [place] [address] | | | | | | [phone] | | | +--------+ + + + [...] | | | | | | [place] [address] | | | | | | [phone] | | | | | | | | +--------+ + + + + | 07/23/ | Office | Pulmonology | Helen Astudillo | | | 2019 | Visit | | MD Joey Su[address] W | | | | | | [address] [place] | | | | | | [place] [address] | | | | | | [phone] | | | | | | | [...]
--- OUTSIDE RECORDS SUMMARY | ~2020-05-02 | XMS | Encounter Summary ---
Demographics + + + | Address | [address] | | | [place] [address] | + + + | Home Phone [...] | Organization | [facility] | | | and [place] | + + + | Address | Unknown | + + + | Phone | Unavailable | + + + Support + + + + + | Name | Relationship | Address | Phone | + + + + + | [employer] | ECON | [id number] | | | | | Unknown | | + + + + + Care Team Providers + +------+ + | Care Roll Cleaner Name | Role | Phone | [...] RN | obstructive | | | | [place], | | pulmonary disease) | | | | [place] [address] | | (HCC) | | | | [phone] | | | +--------+ + + + [...] | | | | | [place] [address] | | | | | | [phone] | | | | | | | | +--------+ + + + + | 07/23/ | Office | Pulmonology | Helen Astudillo | | | 2019 | Visit | | MD Vikash [address] | | | | | | [address] [place] | | | | | | [place] [address] | | | | | | [phone] | | | | | | | | +--------+ + + + + documented as of this encounter Visit Diagnoses + + | Diagnosis | + + | COPD (chronic obstructive pulmonary disease) (HCC) Chronic airway obstruction, not | | elsewhere classified | + + documented in this encounter"
--- OUTSIDE RECORDS SUMMARY | ~2020-05-02 | XMS | Encounter Summary ---
Demographics + + + | Address | [address] | | | [place] [address] | + + + | Home Phone [...] | Organization | [facility] | | | and [place] | + + + | Address | Unknown | + + + | Phone | Unavailable | + + + Support + + + + + | Name | Relationship | Address | Phone | + + + + + | [employer] | ECON | [id number] | | | | | Unknown | | + + + + + Care Team Providers + +------+ + | Care Aadc Plans Staff Officer Name | Role | Phone | [...] | | | | ABDIRASHID BROTHERS | [place], [place] | | | | | [place] | [address] | | | | | [address] | [phone] | | | | | [phone] | | | +--------+ + + + [...] | | | | | [place] [address] | | | | | | [phone] | | | | | | | | +--------+ + + + + | 07/23/ | Office | Pulmonology | Helen Astudillo | | | 2019 | Visit | | MD [address] | | | | | | [address] | | | | | | [place] [address] | | | | | | [phone] | | | | | | | | +--------+ + + + + documented as of this encounter Visit Diagnoses Not on filedocumented in this encounter"
--- OUTSIDE RECORDS SUMMARY | ~2020-05-02 | XMS | Encounter Summary ---
Demographics + + + | Address | [address] | | | [place] [address] | + + + | Home Phone [...] Organization | [facility] | | | and [place] | + + + | Address | Unknown | + + + | Phone | Unavailable | + + + Support + + + + + | Name | Relationship | Address | Phone | + + + + + | [employer] | ECON | [id number] | | | | | Unknown | | + + + + + Care Team Providers + +------+ + | Care Bulk Picker Name | Role | Phone | + +------+ + | Yuni Shrestha | PCP | | + +------+ + Reason for Visit +--------+--------+ + | Reason | Onset | Comments | | | Date | | +--------+--------+ + | Other | 08/14/ | overnight oximetry order | | | 2014 | | +--------+--------+ + Encounter Details +--------+ + + + + | Date | Type | Department | Care Team | Description | +--------+ + + + + | 08/14/ | Telephone | [facility] [place] | Sah[place], | Other (overnight | | 2015 | | PULMONARY [address] | Vera Farrar MD | oximetry order) | | | | [place], | | | | | | [place] [address] | | | | | | [phone] | | | +--------+ + + + [...] Telephone Encounter - Tarah Nino, RN - 08/14/2015 9:18 AM Kristen's caregiver [...] | | | | | [place] [address] | | | | | | [phone] | | | | | | | | +--------+ + + + + | 07/23/ | Office | Pulmonology | Helen Astudillo | | | 2020 | Visit | | MD Vikash [address] | | | | | | [address] | | | | | | [place] [address] | | | | | | [phone] | | | | | | | [...]
--- OUTSIDE RECORDS SUMMARY | ~2020-05-02 | XMS | Encounter Summary ---
Demographics + + + | Address | [address] | | | [place] [address] | + + + | Home Phone [...] | Organization | [facility] | | | and [place] | + + + | Address | Unknown | + + + | Phone | Unavailable | + + + Support + + + + + | Name | Relationship | Address | Phone | + + + + + | [employer] | ECON | [id number] | | | | | Unknown | | + + + + + Care Team Providers + +------+ + | Care Beam House Inspector Name | Role | Phone | [...] | | 2018 | | GASTROENTEROLOGY | VarshaBRITTANY landeros [address] | Management | | | | [address] [place] | [address] | | | | | [address] [place], [place] | [place], [place] | | | | | [address] | [address] | | | | | [phone] | | | +--------+--------+ + + + [...] | | | | | [place] [address] | | | | | | [phone] | | | | | | | | +--------+ + + + + | 07/23/ | Office | Pulmonology | Helen Astudillo | | 2019 | Visit | | MD [address] | | | | | | [address] | | | | | | [place] [address] | | | | | | [phone] | | | | | | | | +--------+ + + + + documented as of this encounter Visit Diagnoses Not on filedocumented in this encounter"
--- OUTSIDE RECORDS SUMMARY | ~2020-05-02 | XMS | Encounter Summary ---
Demographics + + + | Address | [address] | | | [place] [address] | + + + | Home Phone [...] + | Organization | [facility] | | | and [place] | + + + | Address | Unknown | + + + | Phone | Unavailable | + + + Support + + + + + | Name | Relationship | Address | Phone | + + + + + | [employer] | ECON | [id number] | | | | | Unknown | | + + + + + Care Team Providers + +------+ + | Care Seat Coverer Name | Role | Phone | + +------+ + PCP | Unavailable | + +------+ + Encounter Details +--------+ + + + + | Date | Type | Department | Care Team | Description | +--------+ + + + + | 04/06/ | Hospital | [facility] | Conversion | | | 2011 | Encounter | [facility] | Transaction, | | | | | [facility] | Provider Unknown | | | | | [address] [facility] [place], | | | | | | [place] [address] | (Fax) | | | | | [phone] | | | +--------+ + + + [...] | | | | | [place] [address] | | | | | | [phone] | | | | | | | | +--------+ + + + + | 07/23/ | Office | Pulmonology | Helen Astudillo | | | 2019 | Visit | | MD Joey Suh | | | | | | [address] [place] | | | | | | [place] [address] | | | | | | [phone] | | | | | | | | +--------+ + + + + documented as of this encounter Visit Diagnoses Not on filedocumented in this encounter"
--- OUTSIDE RECORDS SUMMARY | ~2020-05-02 | XMS | Encounter Summary ---
Demographics + + + | Address | [address] | | | [place] [address] | + + + | Home Phone [...] [facility] | | | and [place] | + + + | Address | Unknown | + + + | Phone | Unavailable | + + + Support + + + + + | Name | Relationship | Address | Phone | + + + + + | [employer] | ECON | [id number] | | | | | Unknown | | + + + + + Care Team Providers + +------+ + | Care Epic Cupid Specialists Name | Role | Phone | [...] | | | | ABDIRASHID BROTHERS | [place], [place] | | | | | [place] | [address] | | | | | [address] | [phone] | | | | | [phone] | | | +--------+ + + + [...] | | | | | [place] [address] | | | | | | [phone] | | | | | | | | +--------+ + + + + | 07/23/ | Office | Pulmonology | Helen Astudillo | | | 2019 | Visit | | MD [address] | | | | | | [address] | | | | | | [place] [address] | | | | | | [phone] | | | | | | | | +--------+ + + + + documented as of this encounter Visit Diagnoses Not on filedocumented in this encounter"
--- OUTSIDE RECORDS SUMMARY | ~2020-05-02 | XMS | Encounter Summary ---
Demographics + + + | Address | [address] | | | [place] [address] | + + + | Home Phone | | + + + | Preferred Language | Unknown | + + + | Marital Status | Single | + + + | Zoroastrianism Affiliation | NRP | + + + | Race | White | + + + | Ethnic Group | Not or | + + + Author + + + | Author | [facility] | + + + | Organization | [facility] | + + + | Address | Unknown | + + + | Phone | Unavailable | + + + Support + + +---------+ + | Name | Relationship | Address | Phone | + + +---------+ + | Lidia Thibodeaux | ECON | Unknown | | + + +---------+ + Care Team Providers + +------+ + | Care Mill Set Up Name | Role | Phone | [...] | | | | | Floor | [place], [place] | | | | | | [place], [place] | [address] | | | | | | [address] | Phone: | | | | | | Phone: | [phone] | | | | | | [phone] | Fax: | | | | | | Fax: | [phone] | | | | | | [phone] | | +--------+--------+ + + + + Encounter Details +--------+ + + + + | Date | Type | Department | Care Team | Description | +--------+ + + + + | 03/27/ | Outside | Neurophysiology | Mustapha Vidal, | | | 2012 | Referral | EEG at [facility] [address] | MD [place] | | | | Order | [facility] | [facility] [address] | | | | | [employer] | KATI AVJose Carlos | | | | | [place], [address] Floor | [place] [address] | | | | | [place], [place] | [phone] | | | | | [address] | | | | | | [phone] | | | +--------+ + + + [...] 1965 Medical | | | Record Number: [id number] Date of Test: 03/27/2013 Place of | | | Service: [facility] Department: EEG [facility] [id number] | | | ROUTINE EEG - [facility] Reason for Exam: Evaluate for [...] | Clinical Events: No pushbutton events or senior radiation protection technician notes of unusual | | | [...] Laws M.D. | | | Suggested CPT: 68717 - EEG Routine Awake & Asleep Suggested Dx: | | | 780.39-Convulsions | | + + + documented in this encounter Visit Diagnoses Not on filedocumented in this encounter"
--- OUTSIDE RECORDS SUMMARY | ~2020-05-02 | XMS | Clinical Summary ---
Demographics + + + | Address | [address] | | | [place] [address] | + + + | Home Phone [...] Organization | [facility] | | | and [place] | + + + | Address | Unknown | + + + | Phone | Unavailable | + + + Support + + + + + | Name | Relationship | Address | Phone | + + + + + | [employer] | ECON | [id number] | | | | | Unknown | | + + + + + Care Team Providers + +------+ + | Care Glass Lined Tank Repairer Name | Role | Phone | [...] onto teeth 2 times | | | 04/19 | | e | | | daily. [...] | | + + + +---------+------+------+-------+ | clindamycin | Take 300 mg by mouth | | 0 | | | Activ | | (CLEOCIN) 300 MG | | | | | | e | | capsule | | | | | | | + + + +---------+------+------+-------+ | | Take 10 mLs by mouth | | 0 | | | Activ | | guaiFENesin-dextrome | as needed | | | | | e | | thorphan (ROBITUSSIN | | | | | | | | DM) 100-10 mg/5 mL | | | | | | | | syrup | | | | | | | + + + +---------+------+------+-------+ | ibuprofen (ADVIL, | Take 400 mg by mouth | | 0 | | | Activ | | MOTRIN) 400 mg | as needed | | | | | e | | tablet | | | | | | | + + + +---------+------+------+-------+ | montelukast | Take 10 mg by mouth | | 0 | | | Activ | | (SINGULAIR) 10 mg | Daily | | | | | e | | tablet | | | | | | | + + + +---------+------+------+-------+ | NYSTATIN [id number] | as needed | | 0 | 04/3 | | Activ | | UNIT/GM powder | | | | 0/20 | | e | | | | | | 20 | | | + + + +---------+------+------+-------+ | predniSONE | 40 mg for four days, | | 0 | 03/31 | | Activ | | (DELTASONE) 20 mg | 20 mg for four | | | /20 | | e | | tablet | days, 10 mg for four | | | 20 | | | | | days. | | | | | | + + + +---------+------+------+-------+ | spironolactone | | | 0 | 12/0 | | Activ | | (ALDACTONE) 25 mg | | | | /20 | | e | | tablet | | | | 19 | | | + + + +---------+------+------+-------+ | ambrisentan | Take 10 mg by mouth | | 0 | 03/2 | 03/31 | Disco | | (LETAIRIS) 10 MG | Daily. | | | 07/20 | 05/19 | ntinu | | tablet | | | | 19 | 20 | ed | | | | | | | | (Marge | | | | | | | | ent | | | | | | | | Not | | | | | | | | Takin | | | | | | | | g) | + + + +---------+------+------+-------+ | MILK OF MAGNESIA | Take 30 mLs by mouth | | 11 | 11/01 | 03/31 | Disco | | 7.75 % suspension | Daily as needed. | | | 07/20 | 05/19 | ntinu | | | | | | 19 | 20 | ed | | | | | | | | (Marge | | | | | | | | ent | | | | | | | | Not | | | | | | | | Takin | | | | | | | | g) | + + + +---------+------+------+-------+ | propranolol | Take 10 mg by mouth | | 2 | 12/30 | 03/31 | Disco | | (INDERAL) 10 mg | 2 times daily. | | | 06/19 | 05/19 | ntinu | | tablet | | | | 19 | 20 | ed | | | | | | | | (Marge | | | | | | | | ent | | | | | | | | Not | | | | | | | | Takin | | | | | | | | g) | + + + +---------+------+------+-------+ Active Problems [...] + + + + | Overview: Overview: [facility] 05/10/13: RV 109/22PA 105/47 Mean PA | | 63Wedge mean 10Overview: -[facility] 04/2013 [facility]: FindingsBASELINE on 2L | | [...] & Plan: -echocardiogram at local | | hospital-[facility] in [place]. We will talk by phone with | | the results.-keep up the good work with walking, BIPAP use, | | oxygen use, and no smoking. -continue with your yearly flu | | vaccine.-you should have a f/u appointment with your new | | performance improvement consultant sometime in the next 6 months. -you [...] Walk at next visit. | | Overview: -[facility] 04/2013 [facility]: FindingsBASELINE on 2L O2RA: mean 17, | [...] & Plan: -echocardiogram at local | | hospital-[facility] in [place]. We will talk by phone with | | the results.-keep up the good work with walking, BIPAP use, | | oxygen use, and no smoking. -continue with your yearly flu | | vaccine.-you should have a f/u appointment with your new | | performance improvement consultant sometime in the next 6 months. -you [...] Walk at next visit. | |Overview: | |-[facility] 04/2013 [facility]: Findings | |BASELINE on 2L [...] |Last Assessment & Plan: | |-[facility] in [place]. We will talk by phone with sotero reno results. | |-keep up the good work with walking, BIPAP use, oxygen use, and no smoking. | |-continue with your yearly flu vaccine. | |-you should have a f/u appointment with your new performance improvement consultant sometime in the next 6 month s. [...] 4 | + + + + Encounters +--------+---------+ + + + | Date | Type | Specialty | Care Team | Description | +--------+---------+ + + + | 04/30/ | Office | Sleep Medicine | Jacky Calderon PA | [place] treated with | | 2019 | Visit | | | BiPAP (Primary Dx) | +--------+---------+ + + + | 04/16/ [...] | (HCC) | +--------+---------+ + + + from Last 3 Months [...] + + + | Blood Pressure | 110/80 | 04/30/2020 11:29 AM | | | | | PDT | | + + + + + | Pulse | 89 | [...] | | | | | [place] [address] | | | | | | [phone] | | | | | | | | +--------+ + + + + | 07/23/ | Office | Pulmonology | Helen Astudillo | | | 2019 | Visit | | MD [address] | | | | | | [address] [place] | | | | | | [place] [address] | | | | | | [phone] | | | | | | | [...] | [employer] [facility] | [facility] | [id number] | 04/30/20 | [phone] | | Medica [...] | [address] | | | al/Fam | | 1965 | [phone] | [place] | | | jammie | | | 5 (Home) | [address] | + +--------+ +--------+ + + Advance Directives + + + + + | Type | Date Recorded | Patient | Explanation | | | | Service Cashier | | + + + + + | Power of | | | | | Retail Selling Specialist | | | | + + + + + | Advance | 03/26/2015 12:35 | | | | Directive | PM | | | + + + + +
--- OUTSIDE RECORDS SUMMARY | ~2020-05-02 | XMS | Encounter Summary ---
Demographics + + + | Address | [address] | | | [place] [address] | + + + | Home Phone [...] | Organization | [facility] | | | and [place] | + + + | Address | Unknown | + + + | Phone | Unavailable | + + + Support + + + + + | Name | Relationship | Address | Phone | + + + + + | [employer] | ECON | [id number] | | | | | Unknown | | + + + + + Care Team Providers + +------+ + | Care Global Product Manager Name | Role | Phone | + +------+ + | Gela Trimble VOLTAGE TESTER | PCP | | + +------+ + [...] | | | | | ([facility]) | MD [address] | | | | | | [address] | [address] | | | | | | [place], | [place], [place] | | | | | | [place] [address] | [address] Phone: | | | | | | | [phone] | | | | | | | Fax: | | | | | | | [phone] | +--------+ + + + + + [...] | | MD [address] | | | | | [address] | [place], | | | | | | [place], | [place] [address] | | | | | | [place] [address] | Phone: | | | | | | | [phone] | | | | | | | Fax: | | | | | | | [phone] | +--------+ + + + + + [...] | | | | | ([facility]) | [address] | | | | | | [address] | [address] | | | | | | [place], | [place], [place] | | | | | | [place] [address] | [address] Phone: | | | | | | | [phone] | | | | | | | Fax: | | | | | | | [phone] | +--------+ + + + + + Encounter Details +--------+---------+ + + + | Date | Type | Department | Care Team | Description | +--------+---------+ + + + | 07/04/ | Office | [facility] | Offenstein, | Pulmonary | | 2012 | Visit | PULMONARY [address] | Vera Farrar MD | hypertension ([facility]) | | | | [address] [place], | | (Primary Dx); [place] | | | | [place] [address] | | (obstructive sleep | | | | [phone] | | apnea); Hypoxemia; | | | | | | COPD (chronic | | | | | | obstructive | | | | | | pulmonary disease) | | | | | | ([facility]); Congestive | | | | | | heart failure with | | | | | | LV diastolic | | | | | | dysfunction, NYHA | | | | | | class 3 ([facility]); | | | | | | History [...] original. Pulmonary Consult Note Vera Lainez MD [facility] [address], [address] Referring Provider: Nai Otoole, Gela FELICIANO Margarita [...] and chest pain. She was taken to [facility] and underwent evaluation there. She does [...] pre hospitalization work up either. While at [facility], she had a right heart cath [...] factors for HIV. She was tested at [facility] as well. Past Medical History Past [...] Years of Education: N/A Occupational History Disabled. [employer] Social History Main Topics Smoking status: Former Smoker -- 1.0 packs/day for 20 years Types: Cigarettes Quit date: 05/14/2013 Smokeless tobacco: None Alcohol Use: Yes history of abuse Drug Use: Yes Special: Cocaine history of cocaine use Sexually Active: None Other Topics Concern None Social History Narrative Lives at [employer] Allergies: Allergies Allergen Reactions Erythromycin Metronidazole Penicillins [...] Place 1 applicator vaginally 2 times daily. Picacho-3 Fatty Acids (SEA-OMEGA 30) 1200 MG CAPS [...] pressure of 18/14cm H2O. Echocardiogram done at [facility] on May 02, 2013 was reviewed [...] were performed on May 07, 2013 at [facility] in the pulmonary function l ab [...] were reviewed in clinic today. Records from [facility] are reviewed in clinic today. Assessment [...] to them, but she was at a group home in the interim. I am going to have her see a pulmonary hypertension specialist (Dr. Rivera, [facility])to dec deb on most appropriate medication, though [...] iPAP. She had an overnight oximetry at [facility] (I think on 2L?) which showed [...] ordered today. 7.See pulmonary hypertension specialist in [place], Dr. Rivera to address question of medi [...] made to ensure accuracy; however, inadvertent computerized preparation supervisor freezing errors may be pre sent. documented in t his encounter Miscellaneous Notes Miscellaneous - ONBASE SCAN [facility] - 07/04/2013 12:00 AM PDT iscellaneous - ONBASE SCAN [facility] - 07/04/2013 12:00 AM PDTEle ctronically signed by Thor Castro at 07/30/2013 3:55 PM PDTMiscellaneous - ONBASE SCAN [facility] - 07/04/2013 12:00 AM PDT [...] | | | | | | [place] [address] | | | | | | [phone] | | | | | | | | +--------+ + + + + | 07/23/ | Office | Pulmonology | Helen Astudillo | | | 2019 | Visit | | MD [address] | | | | | | [address] [place] | | | | | | [place], [place] [address] | | | | | | [phone] | | | | | | | [...] | + + +--------+ + + | HELP DESK ADMINISTRATOR Ab, IgG | Lab | Routin | Pulmonary | Expected: | | | | e | hypertension (HCC) | 07/04/2013, Expires: | | | | | | 07/04/2014 | + + +--------+ + + | Rowley Ab, IgG | Lab | Routin | Pulmonary | Expected: | | | | e | hypertension ([facility]) | 07/04/2013, Expires: | | | | | | 07/04/2014 | + + +--------+ + + | Pulse oximetry | Respiratory | Routin | Pulmonary | Expected: | | titation | Care | e | hypertension ([facility]) | 07/04/2013, Expires: | | | | [...] | | MEDICAL | | | | [id number]: [id number] | | CENTER - | | | | | | LABORATORY | | + + + + + + + + | Specimen | + + | Blood specimen | | (specimen) | + + + + + + + | Performing | Address | City/[facility]/Zipcode | Phone Number | | Organization | | | | + + + + + | [facility] | [address] | [place] | [phone] | | [facility] | | [address] | | | - LABORATORY | | | | + + + + + | [facility] | [address] | [place] | | | [facility] | | [address], [facility] | | | - LABORATORY | [...] [place] | | | | | | [facility] | | | | | [...] + | [facility] | [address] | [place] | [phone] | | [facility] | | [address] | | | - LABORATORY | | | | + + + + + | [facility] | [address] | [place], [place] | | | [facility] | | [id number] | | | - LABORATORY | | [...]
--- OUTSIDE RECORDS SUMMARY | ~2020-05-02 | XMS | Encounter Summary ---
Demographics + + + | Address | [address] | | | [place] [address] | + + + | Home Phone [...] | Organization | [facility] | | | and [place] | + + + | Address | Unknown | + + + | Phone | Unavailable | + + + Support + + + + + | Name | Relationship | Address | Phone | + + + + + | [employer] | ECON | [id number] | | | | | Unknown | | + + + + + Care Team Providers + +------+ + | Care Tube Maker Name | Role | Phone | [...] CENTER [address] | [facility] | | | | | [address] [place] | [place] [address] | | | | | [address] | [phone] | | | | | [phone] | | | +--------+ + + + [...] | | | | | [place] [address] | | | | | | [phone] | | | | | | | | +--------+ + + + + | 07/23/ | Office | Pulmonology | Helen Astudillo | | | 2019 | Visit | | MD [address] | | | | | | [address] | | | | | | [place] [address] | | | | | | [phone] | | | | | | | | +--------+ + + + + documented as of this encounter Visit Diagnoses Not on filedocumented in this encounter"
--- OUTSIDE RECORDS SUMMARY | ~2020-05-02 | XMS | Encounter Summary ---
Demographics + + + | Address | [address] | | | [place] [address] | + + + | Home Phone [...] | Organization | [facility] | | | and [place] | + + + | Address | Unknown | + + + | Phone | Unavailable | + + + Support + + + + + | Name | Relationship | Address | Phone | + + + + + | [employer] | ECON | [id number] | | | | | Unknown | | + + + + + Care Team Providers + +------+ + | Care Patient Access Associate Name | Role | Phone | [...] [place]ECT[place] | | | | | | [address] | | | | | | [phone] | | | +--------+ + + + [...] | | | | | [place] [address] | | | | | | [phone] | | | | | | | | +--------+ + + + + | 07/23/ | Office | Pulmonology | Helen Astudillo | | | 2019 | Visit | | MD Joey Suh | | | | | | [address] [place] | | | | | | [place] [address] | | | | | | [phone] | | | | | | | | +--------+ + + + + documented as of this encounter Visit Diagnoses Not on filedocumented in this encounter"
--- OUTSIDE RECORDS SUMMARY | ~2020-05-02 | XMS | Encounter Summary ---
Demographics + + + | Address | [address] | | | [place] [address] | + + + | Home Phone [...] | Organization | [facility] | | | and [place] | + + + | Address | Unknown | + + + | Phone | Unavailable | + + + Support + + + + + | Name | Relationship | Address | Phone | + + + + + | [employer] | ECON | [id number] | | | | | Unknown | | + + + + + Care Team Providers + +------+ + | Care Sediment Remediation Consultant Name | Role | Phone | [...] | | | | | | [place] [address] | | | | | | [phone] | | | +--------+ + + + [...] | 07/23/ | Appointment | Pulmonology | Sahib, Helen | | | 2019 | | | MD [address] | | | | | | [address] [place] | | | | | | [place] [address] | | | | | | [phone] | | | | | | | | +--------+ + + + + | 07/23/ | Office | Pulmonology | Helen Astudillo | | | 2019 | Visit | | MD [address] | | | | | | [address] [place] | | | | | | [place] [address] | | | | | | [phone] | | | | | | | [...] [address] | [place] | [phone] | | [facility] | | [address] | | | - LABORATORY | | | | + + + + + documented in this encounter Visit Diagnoses Not on filedocumented in this encounter"
--- OUTSIDE RECORDS SUMMARY | ~2020-05-02 | XMS | Encounter Summary ---
Demographics + + + | Address | [address] | | | [place] [address] | + + + | Home Phone [...] Organization | [facility] | | | and [place] | + + + | Address | Unknown | + + + | Phone | Unavailable | + + + Support + + + + + | Name | Relationship | Address | Phone | + + + + + | [employer] | E[place] | [id number] | | | | | Unknown | | + + + + + Care Team Providers + +------+ + | Care Real Estate Appraiser Name | Role | Phone | + [...] | | | | Logan Gasca | [place] [address] | Obstructive sleep | | | | [place] [address] | [phone] | apnea (adult) | | | | [phone] | | (pediatric) | +--------+ + + [...] | | | | | | [place] [address] | | | | | | [phone] | | | | | | | | +--------+ + + + + | 07/23/ | Office | Pulmonology | Helen Astudillo | | | 2019 | Visit | | MD Joey Suh [address] | | | | | | [address] | | | | | | [place], [place] [address] | | | | | | [phone] | | | | | | | | +--------+ + + + + documented as of this encounter Visit Diagnoses + + | Diagnosis | + + | Obstructive sleep apnea - Primary Obstructive sleep apnea (adult) (pediatric) | + + | Obstructive sleep apnea (adult) (pediatric) | + + documented in this encounter"
--- OUTSIDE RECORDS SUMMARY | ~2020-05-02 | XMS | Encounter Summary ---
Demographics + + + | Address | [address] | | | [place] [address] | + + + | Home Phone [...] | Organization | [facility] | | | and [place] | + + + | Address | Unknown | + + + | Phone | Unavailable | + + + Support + + + + + | Name | Relationship | Address | Phone | + + + + + | [employer] | [place] | [id number] | | | | | Unknown | | + + + + + Care Team Providers + +------+ + | Care Mineral Wool Insulation Supervisor Name | Role | Phone | [...] | hypertension (HCC) | | | | [place], | | (Primary Dx); | | | | [place] [address] | | Obstructive sleep | | | | [phone] | | apnea; COPD (chronic | | [...] from the original. Pulmonary Follow Up MD Maria Dolores [facility] [address] [place], [address] HPI Keo Rowley is a 47 y.o. female patient of [facility] Xiang here today for follow up of pulmonary [...] get an appointment with Dr. Rivera in [place], which is next week. Initially appar ently [...] Years of Education: N/A Occupational History Disabled. [employer] Social History Main Topics Smoking status: Former Smoker -- 1.0 packs/day for 20 years Types: Cigarettes Quit date: 05/14/2013 Smokeless tobacco: None Alcohol Use: Yes history of abuse Drug Use: Yes Special: Cocaine history of cocaine use Sexually Active: None Other Topics Concern None Social History Narrative Lives at [facility]. Allergies: Allergies Allergen Reactions Erythromycin Metronidazole Penicillins [...] Active Take 2,000 Units by mouth Daily. [place] Starch POWD Active by Does not apply [...] patch onto the skin every 24 hours. 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 CC: Gela Guerrero C, RAG WASHER, Lashae Rivera MD Portions of this report were transcribed using voice recognition software. Every effort wa s made to ensure accuracy; however, inadvertent computerized cripple chaser errors may be pre sent. documented in [...] | | | | | [place] [address] | | | | | | [phone] | | | | | | | | +--------+ + + + + | 07/23/ | Office | Pulmonology | Helen Astudillo | | 2019 | Visit | | MD Vikash [address] | | | | | | [address] | | | | | | [place] [address] | | | | | | [phone] | | | | | | | [...]
--- OUTSIDE RECORDS SUMMARY | ~2020-05-02 | XMS | Encounter Summary ---
Demographics + + + | Address | [address] | | | [place] [address] | + + + | Home Phone | | + + + | Preferred Language | Unknown | + + + | Marital Status | Single | + + + | Buddhist Affiliation | NRP | + + + [...] Providers + +------+ + | Care Health And Wellness Instructor Name | Role | Phone | + +------+ + | Gela Trimble PRESS TENDER | PCP | | + +------+ + [...] | pulmonary | Nadja Solomon | Mushtaq [place], | | | | | heart | [place], [place] | [place] | | | | | diseases | [address] | [address] | | | | | Procedures | Phone: | Phone: | | | | | CONSULT TO | [phone] | [phone] | | | | | PULMONARY | Fax: | Fax: | | | | | | [phone] | [phone] | +--------+--------+ + + + + Diagnostic [...] | | | | | | | [place], [place] | | | | | | | [address] | | | | | | | Phone: | | | | | | | [phone] | | | | | | | Fax: | | | | | | | [phone] | | +--------+--------+ + + + + [...] | | | | Hansel Hein, | [facility] [address] | | | | | TRANSTHORACI | MD [address] | | | | | C | [address]errano | [address] | | | | | [address] | [address] | [place] | | | | | AM, ADULT | [place], [place] | [facility] | | | | | | [address] | floor | | | | | | | [place], [place] | | | | | | | [address] | | | | | | | Phone: | | | | | | | [phone] | +--------+--------+ + + + + Reason [...] | | | | | | | [address] [facility] | | | | | | | Zach Saez | | | | | | | Mushtaq Mailcode: | | | | | | | [address] [facility] | | | | | | | Hospital | | | | | | | [place], [place] | | | | | | | [address] | | | | | | | Phone: | | | | | | | [phone] | | | | | | | Fax: | | | | | | | [phone] | +--------+--------+ + + + + Encounter Details +--------+ + + + + | Date | Type | Department | Care Team | Description | +--------+ + + + + | 05/02/ | Hospital | [facility] 14B MEDICINE | Lenora Lawson MD | | | 2013 - | Encounter | [address] | [address] | | | | | Nadja Solomon Mailcode: | Nadja Solomon [place], | | | 05/12/ | | 14B [facility] | [place] [address] | | | 2012 | | [place], [place] | [phone] | | | | | [address] | | | | | | [phone] | Agus Jiang MD | | | | | | [address] | | | | | | Nadja Solomon [place], | | | | | | [place] [address] | | | | | | [phone] | | | | | | | [...] interventricular septum. RVSP 75 +. Transferred to [facility] from [facility] ED on after presenting with [...] to 100/80s. Initial vitals on arrival at [facility] were T 36.6 BP 110/69 P 74 [...] ensure proper diuresis -pt will f/u with class b driver- Avila Langley in [place] #. Pulmonary hypertension, idiopathic- diagnosis confirmed via [...] mg by mouth once daily in the [facility] katarzyna. cetirizine 10 mg Oral tablet [...] Apply 1 Patch to skin once daily. Honomu-3 Fatty Acids-Vitamin E (FISH OIL) 1,000 mg [...] SNF physician to follow, Dr. Ansari from [facility] -spoke to PCP and spoke over hospital course and f/u plans -will have pulm f.u here at [facility] as no pulm htn specialist in [place], to be arranged -asked PCP, who had been managing seizure d/o to arrange for neurology f/u in [place] (a greed) -pt will f/u with class b driver- Avila Langley in [place] Outstanding labs/studies: none Cristine Freeman MD Internal Medicine Resident Pager [phone] Jessica Lopez MD Anesthesiology, PGY-1 Pager [phone] documented in t his encounter Medications at [...] + + + +---------+ + + | Honomu-3 Fatty | Take 1 Cap by mouth [...] 4. Dispo - d/c to SNF near [place] for rehab. Taty Bucio MD, MPH cloth layer [facility] DEPARTMENT: [id number]- [facility] Faculty PPV Place of Service:20439- Inpatient Date of Service: 05/12/2013 CSN: [id number] Suggested Modifiers:GC- Resident present for procedure Suggested CPT: 84372- Discharge < 30 min Too Lechuga MD [...] rehab -plan for transport tomorrow 11am to [facility] -spoke with Dr. Ansari (family med at [facility]), physician to take care of p t at SNF -outpt meds: lasix 80mg PO BID, 40mEq KCl tab daily Agus Jiang MD saw and evaluated this patient and aggress with my assessment and plan as documented above. Jessica Lopez MD Anesthesiology, PGY-1 Pager [phone] Agus Sandoval MD - 0 05/11/2013 4:10 PM PDT 4 GENERAL MEDICINE [...] the 4 residents, Dr. Lopez/Lydia. Please see [facility] housestaff notes for full details. History: [...] set up for tomorrow. AGUS JIANG MD Impregnation Operatorclinic administrator Division of Hospital Medicine Department of Internal Medicine [facility] DEPARTMENT: Hosp- [id number] Place of Service: IP - [id number] Date of Service: 05/11/2013 CSN: [id number] Modifiers:GC Resident Involved: Yes Suggested CPT: 01480 Subsequent Visit Exp Prob Foc/Mod Complexity 25 min I spent 30 minutes in the care of this patient today while on the medical unit with >50% of the time being spent in communication and coordination of care eterson, Shahbaz K - 7:43 AM PDT General Internal Medicine 4 Progress Note 24 Hour Events: No acute events. Got RHC yesterday. Physical therapy worked with her again yesterday afte rnoon. States that she slept well, but fell [...] to sit and stand with moderate assistance. lementsAgus MD - 0 05/10/2013 11:41 AM [facility] 4 GENERAL MEDICINE ATTENDING PROGRESS NOTE ADMIT DATE: 05/02/2013 8:40 PM TODAY'S DATE: 05/10/2013 (HOSPITAL DAY 8) I personally interviewed the patient, performed the beverly elements of the physical examinatio n, reviewed new lab data in EPIC, looked at any new radiology images and have developed an u pdated assessment and plan together with the 4 residents, Dr. Lopez/Lydia. Please see [facility] housestaff notes for full details. I agree with their note with the following additions/ex ceptions. Assessment and Plans Patient Active Hospital Problem List: 1) *Right heart failure due to pulmonary hypertension: Still unclear cause of PulmHTN. Cou ld still be related to GLORIA, will review results of initial sleep study showing severe AHI [facility] pulmonology. RHC today. IF wedge pressure is [...] disorder 11) Developmental delay AGUS JIANG MD Impregnation Operatorclinic administrator Division of Hospital Medicine Department of Internal Medicine [facility] DEPARTMENT: Hosp- [id number] Place of Service: - [id number] Date of Service: 05/10/2013 CSN: [id number] Modifiers:GC Resident Involved: Yes Suggested CPT: 71015 Subsequent Visit Detailed/High complexity 35 min azo, Too Bruno MD - 0 05/10/2013 10:53 AM PDT [...] above. Jessica Lopez MD Anesthesiology, PGY-1 Pager [phone] lementsAgus MD - 0 05/09/2013 3:08 PM PDT 4 GENERAL MEDICINE [...] disorder 11) Developmental delay AGUS JIANG MD Impregnation Operatorclinic administrator Division of Hospital Medicine Department of Internal Medicine [facility] DEPARTMENT: Hosp- [id number] Place of Service: - Date of Service: 05/09/2013 CSN: [id number] Modifiers:GC Resident Involved: Yes Suggested CPT: 69931 Subsequent Visit Exp Prob Foc/Mod Complexity 25 min oCristine shepherd MD - 05/09/2013 1:18 PM PDT Inpatient [...] problems/stable outpt problems -UTI s/p tx with bactrim/-05/05 -COPD: mild obstruction per PFTs obtained here-FEV1- 59% ; FEV1/FVC- 68%/combivent -Bipolar disorder/PTSD -tob use- s/p smoking cessation consult/nicotine patch -hypothyroidism #. Weakness- PT/OT FEN:Regular DVT ppx: sqh Dispo: pending better optimization of fluid status, hopeful [facility] Code Status:} Full Code -:Interval Hx:- [...] tablet 2,000 Units 2,000 Units Oral MARIBELL DANIEL divalproex DR Hoffmanaka DEPAKOTE) tablet 500 mg 500 mg Oral [...] and plan. Cristine Freeman Internal Medicine Resident [phone] lements, Johan lopez MD - 05/08/2013 2:00 PM PDT 4 [...] the 4 residents, Dr. Lopez/Lydia. Please see [facility] housestaff notes for full details. I [...] disorder 11) Developmental delay AGUS JIANG MD Impregnation Operatorclinic administrator Division of Hospital Medicine Department of Internal Medicine [facility] DEPARTMENT: Hosp- [id number] Place of Service: - [id number] Date of Service: 05/08/2013 CSN: [id number] Modifiers:GC Resident Involved: Yes Suggested CPT: 18388 Subsequent Visit Exp Prob Foc/Mod Complexity 25 min azo, Too Bruno MD - 0 05/08/2013 11:26 AM PDT [...] above. Jessica Lopez MD Anesthesiology, PGY-1 Pager [phone] leAgus madden MD - 0 05/07/2013 4:36 PM PDT 4 GENERAL MEDICINE [...] disorder 11) Developmental delay AGUS JIANG MD Impregnation Operatorclinic administrator Division of Hospital Medicine Department of Internal Medicine [facility] DEPARTMENT: Hosp- [id number] Place of Service: IP - 11322 Date of Service: 05/07/2013 CSN: [id number] Modifiers:GC Resident Involved: Yes Suggested CPT: 78989 Subsequent Visit Exp Prob Foc/Mod Complexity 25 [...] epilepsy. Imaging Interpretation: None. Assessment and Plan Koe Rowley is a 47 y/o F with [...] above. Jessica Lopez MD Anesthesiology, PGY-1 Pager [phone] lechano, MD Agus - 0 05/06/2013 7:47 PM PDT 4 GENERAL MEDICINE [...] kg/(m^2) No distress JVP difficult to assess Falcon edema still present in the legs. Assessment [...] disorder 11) Developmental delay AGUS JIANG MD Impregnation Operatorclinic administrator Division of Hospital Medicine Department of Internal Medicine [facility] DEPARTMENT: Hosp- [id number] Place of Service: IP Date of Service: 05/06/2013 CSN: [id number] Modifiers:GC Resident Involved: Yes Suggested CPT: 17844 Subsequent Visit Exp Prob Foc/Mod Complexity 25 min azo, Too Bruno MD - 0 05/06/2013 3:38 [...] above. Jessica Lopez MD Anesthesiology, PGY-1 Pager [phone] Agus Sandoval MD - 0 05/05/2013 2:15 PM PDTGM 4 GENERAL MEDICINE ATTENDING PROGRESS NOTE ADMIT DATE: 05/02/2013 8:40 PM TODAY'S DATE: 05/05/2013 (HOSPITAL DAY 3) I personally interviewed the patient, performed the beverly elements of the physical examinatio n, reviewed new lab data in [facility], looked at any new radiology [...] disorder 11) Developmental delay AGUS JIANG MD Impregnation Operatorclinic administrator Division of Hospital Medicine Department of Internal Medicine [facility] DEPARTMENT: Hosp- [id number] Place of Service: IP - 86766 Date of Service: 05/05/2013 CSN: [id number] Modifiers:GC Resident Involved: Yes Suggested CPT: 66102 Subsequent Visit Exp Prob Foc/Mod Complexity 25 min Too Lechuga MD - 0 05/05/2013 11:22 AM PDT [...] above. Jessica Lopez MD Anesthesiology, PGY-1 Pager [phone] Jay Jay oHwell MD - 05/04/2013 5:22 PM PDTSignificant Event: [...] Jay Grimaldo MD Internal Medicine, PGY-3 Pager [phone] eion Jarrell - 2012 4:52 PM PDTTransthoracic echocardiogram completed. Final report to follow. Agus Sandoval MD - 013 1:35 PM [facility] 4 GENERAL MEDICINE ATTENDING PROGRESS NOTE ADMIT DATE: 05/02/2013 8:40 PM TODAY'S DATE: 05/04/2013 (HOSPITAL DAY 2) I personally interviewed the patient, performed the beverly elements of the physical examinatio n, reviewed new lab data in [facility], looked at any new radiology images and have developed an u pdated assessment and plan together with the 4 residents, Dr. Lopez/Dillan. Please see [facility] for full details. I agree [...] disorder 11) Developmental delay AGUS JIANG MD Impregnation Operatorclinic administrator Division of [facility] Medicine Department of Internal Medicine [facility] DEPARTMENT: Hosp- [id number] Place of Service: IP - 63951 Date of Service: 05/04/2013 CSN: [id number] Modifiers:GC Resident Involved: Yes Suggested CPT: 40025 Subsequent Visit Exp Prob Foc/Mod Complexity 25 min ao, Daniel Tobar MD - 8:47 AM PDT Neurology Follow Up Note Author: RAYNE HAMLIN MD Attending: Agus Jiang MD Date: 05/04/2013 8:48 AM Patient: Keo Rowley [facility] Day: 2 ID: Keo Rowley is [...] Hamlin MD Department of Neurology PGY-1 Pager [phone] PGY-4 Addendum I can follow as her outpatient neurologist if necessary. Daniel Gumzan MD PGY-4 Neuro uchichi, Jay Jay Self MD - 0 05/03/2013 4:05 PM PDTSignificant [...] she knew where she was, she said "[facility]." She thought it to be 2008. [...] Jay Grimaldo MD Internal Medicine, PGY-3 Pager [phone] viva Cervantes - 2012 2:19 PM PDT INPATIENT PROGRESS NOTE Hospital Day:2 Author: AVIVA CERVANTES Attending Physician: Agus Jiang MD 24-hour events -- Episode of seizure with full body shaking 20s in duration per nursing report. At [facility] ruby luation, found to [...] Labs 05/03/13 0735 05/03/13 1832 05/04/13 0655 NA 140 141 144 K 4.1 4.0 3.8 CL 103 104 106 BICARB 24 27 28 BUN 27* 25* 20 CR 0.85 0.85 0.78 GLU 91 131* 84 CA 8.4* 8.0* 8.1* MG -- 1.9 -- Liver Tests: Last 72 hours (or 3 results) Recent Labs 05/02/13220905/03/13 0735 05/04/13 0655 05/04/13 0940 AST 78* 75* [...] as she is preload dependent. -- Continue supplementation -- Lasix IV 40 mg today [...] subsequently started on phenytoin. Last seizure per scarf gluer was 03/26 but scarf gluer was unaware that she had a seizure [...] assessment and plan. Aviva Cervantes MS4, Pager [phone] azo, Too Bruno MD - 05/03/2013 1:52 [...] B/L, +1 edema up to shelter c yisel b/l Psychiatric: appropriate mood and affect, cooperative [...] above. Jessica Lopez MD Anesthesiology, PGY-1 Pager [phone] documented in this enco unter Plan of [...] | + + + + + | [facility] | [address] | [place] [address] | | | SERVICES, CORE | [address] | | | + + + + + MAGNESIUM, PLASMA (05/12/2013 8:25 AM PDT) + +-------+ + + + | Component | Value | Ref Range | Performed | Pathologist | | | | | At | Signature | + +-------+ + + + | MAGNESIUM,P | 1.9 | 1.8 - 2.5 mg/dL | [facility] | | | LASMA | | | [...] | + + + + + | [facility] | [address] | [place] [address] | | | SERVICES, CORE | PARK [...] | | | LABORATORY | | | SERBIAN | | | SERVICES, | | | [...] | + + + + + | [facility] | [address] | [place] [address] | | | SERVICES, CORE | NADJA [...] [facility] | [address] | [place] [address] | | | SERVICES, CORE | PARK [...] [facility] | [address] | [place] [address] | | | SERVICES, CORE | PARK [...] | + + + + + | [facility] | [address] | [place] [address] | | | SERVICES, CORE | PARK [...] | + + + + + | [facility] | [address] [facility] | [place] [address] | | | SERVICES, CORE | NADJA [...] | | | LABORATORY | | | SERBIAN | | | SERVICES, | | | [...] | + + + + + | [facility] | [address] | [place] [address] | | | SERVICES, CORE | PARK [...] | + + + + + | [facility] | [address] | [place] [address] | | | SERVICES, CORE | NADJA [...] | + + + + + | [facility] | [address] [facility] | [place] [address] | | | SERVICES, CORE | PARK [...] | | | LABORATORY | | | SERBIAN | | | SERVICES, | | | [...] | + + + + + | [facility] | [address] | [place] [address] | | | SERVICES, CORE | NADJA [...] by | | | | | | VersionOne,[address] | | | | | | [place] Banuelos,[place] | | | | | | [address] | | | | | | [phone].[employer]. | | | | | | Zane [...] [facility] | [address] | [place], [place] | | | [facility] | | [address] | | + + + + + [...] + | [facility] | [address] | [place] [address] | | | [place] | | | [...] Ag and HIV-1,2 Ab not detected. | [facility] | | | LABORATORY | | | SERVICES, | | | SPECIAL IMM + | | | COAG | + + + + + + + + | Performing | Address | City/State/Zipcode | Phone Number | | Organization | | | | + + + + + | [facility] | [address] | [place] [address] | | | SERVICES, SPECIAL | [address] | | | | IMM + COAG | | | | + + + + + NHUNG (05/09/2013 7:18 AM PDT) + + + [...] | + + + + + | [facility] | [address] | [place] [address] | | | SERVICES, CORE | NADJA [...] [facility] | [address] | [place] [address] | | | SERVICES, CORE | [address] [...] | | | LABORATORY | | | SERBIAN | | | SERVICES, | | | [...] the MDRD equation recommended by the | [facility] | | National Kidney Disease Education Program. [...] | + + + + + | [facility] | [address] | [place] [address] | | | SERVICES, CORE | P[address] [...] [facility] | [address] | [place] [address] | | | SERVICES, CORE | PARK [...] | | | LABORATORY | | | SERBIAN | | | SERVICES, | | | [...] | + + + + + | [facility] | [address] | [place] [address] | | | [facility] | [address] | | | + [...] | + + + + + | [facility] | [address] | [place] [address] | | | SERVICES, CORE | [address]JA [...] + + + + + + | WLP75-88% | 0.75 | 2.52 L/sec | [facility] | | | PRE | | | SPECIAL | | | | | | DIAGNOSTICS | | | | | | - | | | | | | PULMONARY | | | | | | FUNCTION | | + + + + + + | LYO45-48% | 30 | % | [facility] | [...] [facility] | | | INTERPRETAT | ID# [id number] | | SPECIAL | | | ION [...] B | | | | | | Brand Analyst: | | | | | | Katty [...] | | | | | | Order# [id number] | | | | | | | [...] | | | | | | 68 16VRF31-20% | | | | | | L/sec 2.52 | | | | | | 0.75 | | | | | | [id number] L/sec | | | | | | | | | | | | 0.75PEF | | | | | | L/sec 6.04 | | | | | | 2.67 49EYG20% | | | | | | L/sec [...] ID: | | | | | | [id number] | | | | | | Date: [...] [facility] | [address] | [place], [place] | | | DIAGNOSTICS - | [address] | [id number] | | | PULMONARY FUNCTION | | [...] + + | [facility] | [address] [facility] | [place] [address] | | | SERVICES, CORE | PARK [...] [facility] | [address] | [place] [address] | | | SERVICES, CORE | [address] [...] | | | LABORATORY | | | SERBIAN | | | SERVICES, | | | [...] the MDRD equation recommended by the | [facility] | | National Kidney Disease Education Program. Estimated GFR | LABORATORY | | Interpretive Information: <60 mL/min/1.73 sq m | [facility] | | Chronic Kidney Disease <15 mL/min/1.73 [...] | + + + + + | [facility] | [address] [facility] | [place] [address] | | | [facility] | [address] | | | + [...] [facility] | [address] | [place] [address] | | | SERVICES, CORE | PARK [...] [facility] | [address] | [place] [address] | | | SERVICES, CORE | PARK [...] | + + + + + | [facility] | [address] [facility] | [place] [address] | | | SERVICES, CORE | [address] [...] | | | LABORATORY | | | SERBIAN | | | SERVICES, | | | [...] | + + + + + | [facility] | [address] | [place] [address] | | | SERVICES, CORE | [address] | | | + + + + + MAGNESIUM, PLASMA (05/06/2013 7:42 AM PDT) + +-------+ + + + | Component | Value | Ref Range | Performed | Pathologist | | | | | At | Signature | + +-------+ + + + | MAGNESIUM,P | 1.9 | 1.8 - 2.5 mg/dL | [facility] | | | JOSEPHMA | | | [...] | + + + + + | [facility] | [address] | [place] [address] | | | SERVICES, CORE | PARK [...] [facility] | [address] | [place] [address] | | | SERVICES, CORE | PARK [...] [facility] | [address] | [place] [address] | | | SERVICES, CORE | PARK [...] | + + + + + | [facility] | [address] [facility] | [place] [address] | | | SERVICES, CORE | [address] [...] | | | LABORATORY | | | SERBIAN | | | SERVICES, | | | [...] | + + + + + | [facility] | [address] | [place] [address] | | | SERVICES, CORE | [address]JA [...] (H) | 60 - 99 mg/dL | [facility] - | | | GLUCOSE, | | [...] [facility] | [address] | [place], [place] | | | [facility] | [address] | [address] | | | TESTS | | | [...] [facility] | [address] | [place] [address] | | | SERVICES, CORE | PARK [...] [facility] | [address] | [place] [address] | | | SERVICES, CORE | P[address] [...] | + + + + + | [facility] | [address] | [place] [address] | | | SERVICES, CORE | NADJA [...] | + + + + + | [facility] | [address] [facility] | [place] [address] | | | SERVICES, CORE | [address] [...] | | | LABORATORY | | | SERBIAN | | | SERVICES, | | | [...] | + + + + + | [facility] | [address] | [place] [address] | | | SERVICES, CORE | [address] | | | + + + + + EEG ROUTINE (05/04/2013) + + + | Narrative | Performed At | + + + | Patient Name: Keo Rowley Date of : 1965 Medical | [facility] - | | Record Number: [id number] Date of Test: 05/04/2013 Place of Service: | [facility], | | [facility] [phone] [facility] Department: EEG [facility] - [id number] | POINT OF CARE | | ROUTINE [...] Modifier: GC - Resident Present Suggested CPT: 81487 - EEG Routine | | | Awake Only Suggested Dx: 780.39 - Convulsions | | + + + + + + + + | Performing | Address | City/State/Zipcode | Phone Number | | Organization | | | | + + + + + | [facility] | [address] | [place], [place] | | | [facility] | [address] | [address] | | | TESTS | | | [...] | + + | Other, Faculty - 05/04/2013 5:58 PM PDT | [...] [facility] | [address] | [place] [address] | | | SERVICES, CORE | PARK [...] | | | LABORATORY | | | SERBIAN | | | SERVICES, | | | [...] | + + + + + | [employer] | [address] | [place] [address] | | | JULIETA, ELMER | [address] [...] | [facility] | | Test performed by: [facility] [address] | REFERENCE LAB | | [place] [address] | | + + + + + [...] | + + + + + | [facility] | [address] | [place] [address] | | | SERVICES, CORE | NAD[address] [...] + | [facility] | [address] | [place] [address] | | | [place] | | | | + + + + + UA, DIPSTICK ONLY (05/03/2013 9:09 AM PDT) + + [...] [facility] | [address] | [place] [address] | | | SERVICES, CORE | PARK [...] [facility] | [address] | [place] [address] | | | SERVICES, [place] | PARK [...] Screen Positive, specimen sent for culture. | [facility] | | | LABORATORY | | | [place] RENDON | + + + + + + + + | Performing | Address | City/State/Zipcode | Phone Number | | Organization | | | | + + + + + | [facility] | [address] | [place] [address] | | | [place] RENDON | [address] [...] | + + + + + | [facility] | [address] [facility] | [place] [address] | | | SERVICES, CORE | [address] [...] | | | LABORATORY | | | SERBIAN | | | SERVICES, | | | [...] | + + + + + | [facility] [employer] | [address] | [place] [address] | | | SERVICES, CORE | PARK [...] + | [facility] - AIRPORT - | [address] | [place] [address] | | | [place] | | | [...] | + + + + + | [facility] - | [address] | [place] [address] | | | [place] | | | [...] GALVAN | | | | | | ([id number]) on 05/24/2013 | | | | | | 9:44:07 PM | | | | + + + + + + + + | Specimen | + + | | + + + + + | Narrative | Performed At | + + + | Please click | [facility] | | on view image for the detailed interpretation from FIA Formula E results. | CARDIOLOGY | + + + + + | Procedure Note | + + | Interface, Cardiology Results - 05/24/2013 9:44 PM PDT Please click on view image | | for the detailed interpretation from In[employer] results. | + + + + + + + | Performing | Address | City/State/Zipcode | Phone Number | | Organization | | | | + + + + + | [facility] | [address] | [place], [place] | | | CARDIOLOGY | [address] | [address] | | + + + + + [...] GALVAN | | | | | | ([id number]) on 05/04/2013 | | | | | | 11:36:09 AM | | | | + + + + + + + + | Specimen | + + | | + + + + + | Narrative | Performed At | + + + | Please click | [facility] | | on view image for the detailed interpretation from InLoc[employer] results. | CARDIOLOGY | + + + + + | Procedure Note | + + | Interface, Cardiology Results - 05/04/2013 11:36 AM PDT Please click on view image | | for the detailed interpretation from [employer] results. | + + + + + + + | Performing | Address | City/State/Zipcode | Phone Number | | Organization | | | | + + + + + | [facility] | [address] | [place], [place] | | | CARDIOLOGY | [address] | [address] | | + + + + + [...] | + + + + + | [employer] | [address] [facility] | [place] [address] | | | SERVICES, CORE | NADJA [...] | + + + + + | [facility] | [address] | [place] [address] | | | SERVICES, CORE | PARK [...] | + + + + + | [facility] | [address] [facility] | [place] [address] | | | SERVICES, CORE | NADJA [...] | | | LABORATORY | | | SERBIAN | | | SERVICES, | | | [...] | + + + + + | [facility] | [address] | [place] [address] | | | SERVICES, [place] | NADJA [...] Edema | + + | Seizure disorder ([facility]) Unspecified epilepsy without mention of intractable epilepsy [...] +---+---+ + +-------+ +---------+---+---+ | albuterol (aka PROVENTIL, | Given | 05/12/20 | 2 puffs [...] | | | | First dose on [facility] 05/03/13 at 0900, | | | [...] | | | | | | on [facility] 05/05/13 at 2100 | | [...] | divalproex (allan GARCIA) | Given | 05/04/20 | [...] +-------+---+---+ | furosemide (aka LASIX) | | 05/05/20 | 40 mg | | [...] furosemide (aka LASIX) | New Bag | 05/06/20 | 40 mg | | [...] + +---------+ +-------+---+---+ +---------+ +-------+---+---+ | New Bag | 05/11/20 [...] | 8 HOURS, First dose on [facility] 05/03/13 | | [...] 8:57 | | | | | on [facility] 05/03/13 at 0900, Until | | [...] | | | MORNING, First dose on Tue | | AM [...] | | ONCE, 1 dose, Tue05/04/13 at 1700 | | | | | [...] | | | oral, ONCE, 1 dose, [facility] 05/09/13 | | PM PDT | | [...] | | | oral, ONCE, 1 dose, [facility] 05/10/13 | | AM PDT | [...] | | | oral, ONCE, 1 dose, [facility] 05/10/13 | | PM PDT | [...] 5:00 | | | | | dose, 05/11/13 at 1500 | | PM PDT | [...]
--- OUTSIDE RECORDS SUMMARY | ~2020-05-02 | XMS | Encounter Summary ---
Demographics + + + | Address | [address] | | | [place] [address] | + + + | Home Phone [...] Organization | [facility] | | | and [place] | + + + | Address | Unknown | + + + | Phone | Unavailable | + + + Support + + + + + | Name | Relationship | Address | Phone | + + + + + | [employer] | ECON | [id number] | | | | | Unknown | | + + + + + Care Team Providers + +------+ + | Care Accounting Officer Name | Role | Phone | [...] | 2017 | | GASTROENTEROLOGY | Varsha BRITTANY [address] | | | | | [address] [place] | [address] | | | | | [address] [place], [place] | [place], [place] | | | | | [address] | [address] | | | | | [phone] | | | +--------+--------+ + + + [...] | | | | | [place], [place] [address] | | | | | | [phone] | | | | | | | | +--------+ + + + + | 07/23/ | Office | Pulmonology | Helen Astudillo | | | 2019 | Visit | | MD [address] | | | | | | [address] [place] | | | | | | [place] [address] | | | | | | [phone] | | | | | | | | +--------+ + + + + documented as of this encounter Visit Diagnoses Not on filedocumented in this encounter"
--- OUTSIDE RECORDS SUMMARY | ~2020-05-02 | XMS | Encounter Summary ---
Demographics + + + | Address | [address] | | | [place] [address] | + + + | Home Phone [...] Organization | [facility] | | | and [place] | + + + | Address | Unknown | + + + | Phone | Unavailable | + + + Support + + + + + | Name | Relationship | Address | Phone | + + + + + | [employer] | ECON | [id number] | | | | | Unknown | | + + + + + Care Team Providers + +------+ + | Care Dipping Machine Operator Name | Role | Phone [...] | | | | ABDIRASHID BROTHERS | [place], [place] | | | | | [place] | [address] | | | | | [address] | [phone] | | | | | [phone] | | | +--------+ + + + [...] | | | | | [place] [address] | | | | | | [phone] | | | | | | | | +--------+ + + + + | 07/23/ | Office | Pulmonology | Helen Astudillo | | | 2019 | Visit | | MD Joey Su[address] W | | | | | | [address] | | | | | | [place] [address] | | | | | | [phone] | | | | | | | | +--------+ + + + + documented as of this encounter Visit Diagnoses Not on filedocumented in this encounter"
--- OUTSIDE RECORDS SUMMARY | ~2020-05-02 | XMS | Clinical Summary ---
Demographics + + + | Address | [address] | | | [place] [address] | + + + | Home Phone [...] Phone | + + +---------+ + | Lidai Thibodeaux | ECON | Unknown | | + + +---------+ + Care Team Providers + +------+ + | Care Manager Msw Name | Role | Phone | + +------+ + | Yuni Shrestha | PCP | | + +------+ + Source Comments SARAH is fully live on both EpicCare Ambulatory and EpicCare InPatient.[facility] Allergies + + + + + + [...] e | + + + +---------+------+------+-------+ | Afton-3 Fatty | Take 1 Cap by mouth [...] | + +--------+ +--------+ + +--------+ | BODY STRAIGHTENER MEDICAID | BODY STRAIGHTENER | [id number] | Effect | | | [...] PLUS | | 12-Pre | 6 | 62837 | id | | | OPEN | | sent | | [place] | | | | CARD | | | | [id number] | | + +--------+ +--------+ + +--------+ [...] | 1965 | [phone] | [place] [address] | | | jammie | | | 0 (Home) | | + +--------+ +--------+ + + | Margarita Rowley May | Person | Self | [birth year] | [address] | | | al/Fam | | 1965 | [phone] | [place] [address] | | | jammie | | | [...]
--- OUTSIDE RECORDS SUMMARY | ~2020-05-02 | XMS | Encounter Summary ---
Demographics + + + | Address | [address] | | | [place] [address] | + + + | Home Phone [...] | Located Within [facility] | | | and [place] | + + + | Address | Unknown | + + + | Phone | Unavailable | + + + Support + + + + + | Name | Relationship | Address | Phone | + + + + + | [employer] | ECON | [id number] | | | | | Unknown | | + + + + + Care Team Providers + +------+ + | Care Casework Specialist Name | Role | Phone | [...] | | pulmonary | ROSELIA MATTHEWS | [place], [place] | | | | | disease, | [place], | [address] | | | | | unspecified | [place] | Phone: | | | | | (HCC) | [address] | [phone] | | | | | Procedures | Phone: | Fax: | | | | | OFFICE VISIT | [phone] | [phone] | | | | | EXTENDED | Fax: | | | | | | | [phone] | | +--------+--------+ + + + + Encounter Details +--------+---------+ + + + | Date | Type | Department | Care Team | Description | +--------+---------+ + + + | 01/31/ | Office | [facility] | Scout Arthur, | Primary pulmonary | | 2019 | Visit | PULMONARY [address] | MD Giovanna YI S | hypertension (HCC) | | | | [place], | [place] [address] | (Primary Dx); | | | | [place] [address] | [phone] | Hypoxia | | | | [phone] | | | +--------+---------+ + + + [...] Scout Arthur MD - 01/31/2019 2:00 PM [id number] former smoker with primar y pulmonary hypertension [...] so we are asking [facility]-home Medical in [facility] to give her a new BiPAP [...] is a note from Dr. Huang in [place] that CMP, CBC, and ESR w ere [...] BiPAP equipme nt. We spent 20 minutes, [id number], at least half in counseling. Word processing [...] | | | | | [place] [address] | | | | | | [phone] | | | | | | | | +--------+ + + + + | 07/23/ | Office | Pulmonology | Helen Astudillo | | 2019 | Visit | | MD [address] | | | | | | [address] | | | | | | [place] [address] | | | | | | [phone] | | | | | | | | +--------+ + + + + documented as of this encounter Visit Diagnoses + + | Diagnosis | + + | Primary pulmonary hypertension (HCC) - Primary Primary pulmonary hypertension | + + | Hypoxia Hypoxemia | + + documented in this encounter
--- OUTSIDE RECORDS SUMMARY | ~2020-05-02 | XMS | Encounter Summary ---
Demographics + + + | Address | [address] | | | [place] [address] | + + + | Home Phone | | + + + | Preferred Language | Unknown | + + + | Marital Status | Single | + + + | Sikhism Affiliation | NRP | + + + | Race | White | + + + | Ethnic Group | Not or | + + + Author + + + | Author | [facility] | + + + | Organization | [facility] | + + + | Address | Unknown | + + + | Phone | Unavailable | + + + Support + + +---------+ + | Name | Relationship | Address | Phone | + + +---------+ + | Lidia Thibodeaux | ECON | Unknown | | + + +---------+ + Care Team Providers + +------+ + | Care Foreclosure Home Inspector Name | Role | Phone | [...] | | | | | n | [facility] | | | | | | [place] [address] | | | | | | [phone] | | | +--------+ + + + [...]
--- OUTSIDE RECORDS SUMMARY | ~2020-05-02 | XMS | Encounter Summary ---
Demographics + + + | Address | [address] | | | [place] [address] | + + + | Home Phone [...] Organization | [facility] | | | and [place] | + + + | Address | Unknown | + + + | Phone | Unavailable | + + + Support + + + + + | Name | Relationship | Address | Phone | + + + + + | [employer] | ECON | [id number] | | | | | Unknown | | + + + + + Care Team Providers + +------+ + | Care High Lift Driver Name | Role | Phone | [...] | | | | ABDIRASHID BROTHERS | [place], [place] | | | | | [place] | [address] | | | | | [address] | [phone] | | | | | [phone] | | | +--------+ + + + [...] | | | | | [place] [address] | | | | | | [phone] | | | | | | | | +--------+ + + + + | 07/23/ | Office | Pulmonology | Helen Astudillo | | | 2019 | Visit | | MD Joey [address] W | | | | | | [address] | | | | | | [place] [address] | | | | | | [phone] | | | | | | | | +--------+ + + + + documented as of this encounter Visit Diagnoses Not on filedocumented in this encounter"
--- OUTSIDE RECORDS SUMMARY | ~2020-05-02 | XMS | Encounter Summary ---
Demographics + + + | Address | [address] | | | [place] [address] | + + + | Home Phone [...] + | Organization | [facility] | | | and [place] | + + + | Address | Unknown | + + + | Phone | Unavailable | + + + Support + + + + + | Name | Relationship | Address | Phone | + + + + + | [employer] | ECON | [id number] | | | | | Unknown | | + + + + + Care Team Providers + +------+ + | Care Produce Associate Name | Role | Phone | + +------+ + | Gela Trimble NP | PCP | | + +------+ + Encounter Details +--------+ + + + + | Date | Type | Department | Care Team | Description | +--------+ + + + + | 12/17/ | [facility] | [facility] | Fatou, | | | 2013 | Encounter | MED CTR GENERIC OP | Vera Farrar MD | | | | | CONV DEPT [address] | | | | | | [place], | | | | | | [place] [address] | | | | | | [phone] | | | +--------+ + + + [...] | | | | | | ([facility]) | | | | | | + + + +---------+ + + | buPROPion | Take 100 mg by mouth | | 0 | | | | (WELLBUTRIN) 100 mg | 2 times daily. | | | | 6 | | tablet | | | | | | + + + +---------+ + + | Altus Starch POWD | by Does not apply [...] + + + +---------+ + + | Palmer-3 Fatty | Take by mouth. | | [...] | | | | | [place] [address] | | | | | | [phone] | | | | | | | | +--------+ + + + + | 07/23/ | Office | Pulmonology | Helen Astudillo | | | 2019 | Visit | | MD Vikash [address] | | | | | | [address] | | | | | | [place] [address] | | | | | | [phone] | | | | | | | | +--------+ + + + + documented as of this encounter Visit Diagnoses Not on filedocumented in this encounter"
--- OUTSIDE RECORDS SUMMARY | ~2020-05-02 | XMS | Encounter Summary ---
Demographics + + + | Address | [address] | | | [place] [address] | + + + | Home Phone [...] + | Organization | [facility] | | | and [place] | + + + | Address | Unknown | + + + | Phone | Unavailable | + + + Support + + + + + | Name | Relationship | Address | Phone | + + + + + | [employer] | ECON | [id number] | | | | | Unknown | | + + + + + Care Team Providers + +------+ + | Care Automotive Internet Sales Manager Name | Role | Phone [...] diseases (HCC) | | | | [place] [address] | | (Primary Dx); | | | | [phone] | | Chronic airway | | | | | | obstruction, not | | | | | | elsewhere classified | | | | | | ([facility]) | +--------+ + + + + Social [...] | | | | | [place] [address] | | | | | | [phone] | | | | | | | | +--------+ + + + + | 07/23/ | Office | Pulmonology | Helen Astudillo | | | 2019 | Visit | | MD [address] | | | | | | [address] [place] | | | | | | [place] [address] | | | | | | [phone] | | | | | | | [...] | | | | diseases ([facility]) | until 06/15/2014 | | | | | Chronic airway | | | | | | obstruction, not | | | | | | elsewhere classified | | | | | | ([facility]) | | + + +--------+ + + documented as of this encounter Visit Diagnoses + + | Diagnosis | + + | Other chronic pulmonary heart diseases - Primary | + + | Chronic airway obstruction, not elsewhere classified | + + documented in this encounter"
--- OUTSIDE RECORDS SUMMARY | ~2020-05-02 | XMS | Encounter Summary ---
Demographics + + + | Address | [address] | | | [place] [address] | + + + | Home Phone [...] [facility] | | | and [place] | + + + | Address | Unknown | + + + | Phone | Unavailable | + + + Support + + + + + | Name | Relationship | Address | Phone | + + + + + | [employer] | ECON | [id number] | | | | | Unknown | | + + + + + Care Team Providers + +------+ + | Care Portrait Painter Name | Role | Phone | + +------+ + | Gela Trimble NP | PCP | | + +------+ + Encounter Details +--------+ + + + + | Date | Type | Department | Care Team | Description | +--------+ + + + + | 07/30/ | Hospital | [facility] | Fatou, | | | 2012 | Encounter | MED CTR SLEEP | Vera Farrar MD | | | | | [address] | | | | | | [place] | | | | | | [address] | | | | | | [phone] | | | +--------+ + + + [...] | + + + +---------+--------+ + | Frederick-3 Fatty | Take by mouth. | | [...] | | | | | [place] [address] | | | | | | [phone] | | | | | | | | +--------+ + + + + | 07/23/ | Office | Pulmonology | Helen Astudillo | | | 2019 | Visit | | MD Joey [address] | | | | | | [address] | | | | | | [place] [address] | | | | | | [phone] | | | | | | | | +--------+ + + + + documented as of this encounter Visit Diagnoses Not on filedocumented in this encounter"
--- OUTSIDE RECORDS SUMMARY | ~2020-05-02 | XMS | Encounter Summary ---
Demographics + + + | Address | [address] | | | [place] [address] | + + + | Home Phone [...] + +------+ + | Care Human Resources Psychologist Name | Role | Phone | + +------+ + | Yuni Shrestha | PCP | | + +------+ + Encounter Details +--------+ + + + + | Date | Type | Department | Care Team | Description | +--------+ + + + + | 05/17/ | [employer] | Pulmonary & | Oneal Morejon MD | | | 2012 | | Critical Care | [address] | | | | | Medicine at | [facility], | | | | | [facility] | [place] [address] | | | | | [address] | [phone] | | | | | [address] | | | | | | [place], [address] Floor | | | | | | [place], [place] | | | | | | [address] | | | | | | [phone] | | | +--------+ + + + [...]
--- OUTSIDE RECORDS SUMMARY | ~2020-05-02 | XMS | Encounter Summary ---
Demographics + + + | Address | [address] | | | [place] [address] | + + + | Home Phone [...] Organization | [facility] | | | and [place] | + + + | Address | Unknown | + + + | Phone | Unavailable | + + + Support + + + + + | Name | Relationship | Address | Phone | + + + + + | [employer] | ECON | [id number] | | | | | Unknown | | + + + + + Care Team Providers + +------+ + | Care Electric Razor Assembler Name | Role | Phone | [...] | | | Pulmonology | airway | ORDNANCE EQUIPMENT WORKER [address] | MD | | | | | obstruction, | [place] | | | | | | not | [address] | | | | | | elsewhere | [place], | | | | | | classified | [place] [address] | | | | | | Obstructive | Phone: | | | | | | sleep apnea | [phone] | | | | | | (adult) | Fax: | | | | | | (pediatric) | [phone] | | | | | | Procedures [...] MD | hypertension | | | | [place], | | (Primary Dx); COPD | | | | [place] [address] | | (chronic obstructive | | | | [phone] | | pulmonary disease); | | | [...] appoin tment to see Dr. Rivera in [place] at [facility]. I will get updated labs from [place] and if we need to add anything, I will send orders to [facility]. Okay to liberalize fluid intake to 2500 [...] goes. You can find these inexpensively at [facility]. Turn the humidity up on your CPAP to 5. Ask the home health [facility] for a humidifier for the oxygen concentrator if you don't have one. Olancha nasal saline spray in your nose several [...] [facility] She Is using no oxygen at rest [...] Years of Education: N/A Occupational History Disabled. [employer] Social History Main Topics Smoking status: Former Smoker -- 1.00 packs/day for 20 years Types: Cigarettes Quit date: 12/10/2014 Smokeless tobacco: None Comment: restarted in August 2014, quit again 12/10/14 Alcohol Use: Yes Comment: history of abuse Drug Use: Yes Special: Cocaine Comment: history of cocaine use Sexual Activity: None Other Topics Concern None Social History Narrative Lives at [facility]. Allergies: Allergies Allergen Reactions Erythromycin Metronidazole [...] TABS Take 2,000 Units by mouth Daily. [place] Starch POWD by Does not apply route [...] mg onto the skin every 24 hours. [place]-3 Fatty Acids (SEA-OMEGA 30) 1200 MG CAPS [...] for her follow up appointment with Dr. Jacky rivera, so I reminded them to make this. [...] exertion only during the daytime. Rechecked at [facility] visit. They are not having issues with low saturations. 6. Sleep related hypoxemia - On oxygen 5L bled in to her BiPAP machine. Plan 1. Follow up appointment to see Dr. Rivera in [place] at [facility]. 2. I will get updated labs from [place] and if we need to add anything, I will send orders to [facility]. 3. Okay to liberalize fluid intake to [...] the BiPAP to 5. 7. Ask the [email or web address] health company for a humidifier for the oxygen concentrator if they don't h ave one. 8. Olancha nasal saline spray in her nose several [...] made to ensure accuracy; however, inadvertent computerized brazer crawler torch errors may be pre sent. documented in [...] | | | | | [place] [address] | | | | | | [phone] | | | | | | | | +--------+ + + + + | 07/23/ | Office | Pulmonology | Helen Astudillo | | | 2019 | Visit | | MD Joey [address] | | | | | | [address] | | | | | | [place] [address] | | | | | | [phone] | | | | | | | [...]
--- OUTSIDE RECORDS SUMMARY | ~2020-05-02 | XMS | Encounter Summary ---
Demographics + + + | Address | [address] | | | [place] [address] | + + + | Home Phone [...] | Organization | [facility] | | | and [place]am[place] | + + + | Address | Unknown | + + + | Phone | Unavailable | + + + Support + + + + + | Name | Relationship | Address | Phone | + + + + + | [employer] | ECON | [id number] | | | | | Unknown | | + + + + + Care Team Providers + +------+ + | Care Tying In Machine Operator Name | Role | Phone [...] | RN | | | | | [place], | | | | | | [place] [address] | | | | | | [phone] | | | +--------+ + + + [...] RN - 07/23/2013 2:30 PM PDTRemick-nurse from [facility] called to clarify that the [...] [address] | | | | | | [phone] | | | | | | | | +--------+ + + + + | 07/23/ | Office | Pulmonology | Helen Astudillo | | 2019 | Visit | | MD Joey [address] W | | | | | | [address] | | | | | | [place] [address] | | | | | | [phone] | | | | | | | | +--------+ + + + + documented as of this encounter Visit Diagnoses Not on filedocumented in this encounter"
--- OUTSIDE RECORDS SUMMARY | ~2020-05-02 | XMS | Encounter Summary ---
Demographics + + + | Address | [address] | | | [place] [address] | + + + | Home Phone [...] | [facility] | | | and [place]am[place] | + + + | Organization | [facility] | | | and [place] | + + + | Address | Unknown | + + + | Phone | Unavailable | + + + Support + + + + + | Name | Relationship | Address | Phone | + + + + + | [employer] | ECON | [id number] | | | | | Unknown | | + + + + + Care Team Providers + +------+ + | Care Arc Trimmer Name | Role | Phone | [...] | | | | ABDIRASHID BROTHERS | [address] | | | | | [place] | [phone] | | | | | [address] | | | | | | [phone] | | | +--------+ + + + [...] | | | | | [place] [address] | | | | | | [phone] | | | | | | | | +--------+ + + + + | 07/23/ | Office | Pulmonology | Helen Astudillo | | | 2019 | Visit | | MD Joey [address] | | | | | | [address] | | | | | | [place] [address] | | | | | | [phone] | | | | | | | | +--------+ + + + + documented as of this encounter Visit Diagnoses Not on filedocumented in this encounter"
--- OUTSIDE RECORDS SUMMARY | ~2020-05-02 | XMS | Encounter Summary ---
Demographics + + + | Address | [address] | | | [place] [address] | + + + | Home Phone | | + + + | Preferred Language | Unknown | + + + | Marital Status | Single | + + + | Spiritism Affiliation | NRP | + + + | Race | White | + + + | Ethnic Group | Not or | + + + Author + + + | Author | [facility] | + + + | Organization | [facility] | + + + | Address | Unknown | + + + | Phone | Unavailable | + + + Support + + +---------+ + | Name | Relationship | Address | Phone | + + +---------+ + | Lidia Thibodeaux | ECON | Unknown | | + + +---------+ + Care Team Providers + +------+ + | Care Bid Writer Name | Role | Phone | [...] | | | Medicine at | [facility], | | | | | [facility] | [place] [address] | | | | | [address] | [phone] | | | | | [address] [facility] | | | | | | Pav[address], 3rd Floor | | | | | | [place], [place] | | | | | | [address] | | | | | | [phone] | | | +--------+ + + + [...]
--- OUTSIDE RECORDS SUMMARY | ~2020-05-02 | XMS | Encounter Summary ---
Demographics + + + | Address | [address] | | | [place] [address] | + + + | Home Phone [...] + + | Organization | [facility] | | | and [place] | + + + | Address | Unknown | + + + | Phone | Unavailable | + + + Support + + + + + | Name | Relationship | Address | Phone | + + + + + | [employer] | ECON | [id number] | | | | | Unknown | | + + + + + Care Team Providers + +------+ + | Care Database Programmer Analyst Name | Role | Phone | [...] + | 05/22/ | Office | [facility] | Jacky Calderon PA | Primary central | | 2015 | Visit | SLEEP DISORDER [address] | [address] | sleep apnea (Primary | | | | [address] | [place] | Dx) | | | | [place] [address] | [address] | | | | | [phone] | | | +--------+---------+ + + + [...] was: 05/21/2014 date of polysomnography: 03/13/2013 at [facility] AHI: 64.2 O2%: n/a Machine type: Respironics BiPAP Auto with ResMed Quattro FX full face mask obtained from: [employer] in [place] pressure: 16/5 cm with backup rate of [...] year, sooner prn. Fifteen minutes were spent zpoq-ab-prop, with the majority of time spent in [...] | | | | | [place] [address] | | | | | | [phone] | | | | | | | | +--------+ + + + + | 07/23/ | Office | Pulmonology | Helen Astudillo | | | 2019 | Visit | | MD [address] | | | | | | [address] | | | | | | [place] [address] | | | | | | [phone] | | | | | | | | +--------+ + + + + documented as of this encounter Visit Diagnoses + + | Diagnosis | + + | Primary central sleep apnea - Primary | + + documented in this encounter"
--- OUTSIDE RECORDS SUMMARY | ~2020-05-02 | XMS | Encounter Summary ---
Demographics + + + | Address | [address] | | | [place] [address] | + + + | Home Phone [...] Author + + + | Author | [facility] | + + + | Organization | [facility] | + + + | Address | Unknown | + + + | Phone | Unavailable | + + + Support + + +---------+ + | Name | Relationship | Address | Phone | + + +---------+ + | Lidia Thibodeaux | ECON | Unknown | | + + +---------+ + Care Team Providers + +------+ + | Care Cartoon Designer Name | Role | Phone | + +------+ + | Gela Trimble DISTRIBUTION ENGINEERING TECHNOLOGIST | PCP | | + +------+ + [...] | pulmonary | Nadja Solomon | [place], | | | | | heart | [place], [place] | [place] | | | | | diseases | [address] | [address] | | | | | Procedures | Phone: | Phone: | | | | | CONSULT TO | [phone] | [phone] | | | | | PULMONARY | Fax: | Fax: | | | | | | [phone] | [phone] | +--------+--------+ + + + + Diagnostic [...] | | | | | | | [place], [place] | | | | | | | [address] | | | | | | | Phone: | | | | | | | [phone] | | | | | | | Fax: | | | | | | | [phone] | | +--------+--------+ + + + + [...] | | | | Hansel Hein, | [facility] [address] | | | | | TRANSTHORACI | MD [address] | | | | | C | [address] Serrano | [address] | | | | | [address] | [address] | [place] | | | | | AM, ADULT | [place], [place] | [facility] | | | | | | [address] | floor | | | | | | | [place], [place] | | | | | | | [address] | | | | | | | Phone: | | | | | | | [phone] | +--------+--------+ + + + + Reason [...] | | | | | | | [address] [facility] | | | | | | | Zach Saez | | | | | | | Mushtaq Mailcode: | | | | | | | [address] [facility] | | | | | | | Hospital | | | | | | | [place], [place] | | | | | | | [address] | | | | | | | Phone: | | | | | | | [phone] | | | | | | | Fax: | | | | | | | [phone] | +--------+--------+ + + + + Encounter [...] | Nadja Solomon Mailcode: | Nadja Solomon [place], | | | 05/12/ | | [address] [facility] | [place] [address] | | | 2012 | | [place], [place] | [phone] | | | | | [address] | | | | | | [phone] | Agus Jiang MD | | | | | | [address] | | | | | | Nadja Solomon [place], | | | | | | [place] [address] | | | | | | [phone] | | | | | | | [...] ensure proper diuresis -pt will f/u with mechanic welder- [facility] in [place] #. Pulmonary hypertension, idiopathic- diagnosis confirmed via [...] mg by mouth once daily in the [facility] katarzyna. cetirizine 10 mg Oral tablet [...] Apply 1 Patch to skin once daily. Vera-3 Fatty Acids-Vitamin E (FISH OIL) 1,000 mg [...] to follow, Dr. Ansari from [facility] -spoke to PCP and spoke over hospital course and f/u plans -will have pulm f.u here at [facility] as no pulm htn specialist in [place], to be arranged -asked PCP, who had been managing seizure d/o to arrange for neurology f/u in [place] (a greed) -pt will f/u with mechanic welder- [facility] L[facility]y in [place] Outstanding labs/studies: none Cristine Freeman MD Internal Medicine Resident Pager [phone] Jessica Lopez MD Anesthesiology, PGY-1 Pager [phone] documented in t his encounter Medications at [...] + + + +---------+ + + | Vera-3 Fatty | Take 1 Cap by mouth [...] 4. Dispo - d/c to SNF near [place] for rehab. Taty Bucio MD, MPH fork truck operator [facility] DEPARTMENT: [id number]- [facility] Place of Service:62488- Inpatient Date of Service: 05/12/2013 CSN: [id number] Suggested Modifiers:GC- Resident present for procedure Suggested CPT: 76456- Discharge < 30 min Too Lechuga MD [...] rehab -plan for transport tomorrow 11am to [facility] -spoke with Dr. Ansari (family med at [facility]), physician to take care of p t at SNF -outpt meds: lasix 80mg PO BID, 40mEq KCl tab daily Agus Jiang MD saw and evaluated this patient and aggress with my assessment and plan as documented above. Jessica Lopez MD Anesthesiology, PGY-1 Pager [phone] Agus Sandoval MD - 0 05/11/2013 4:10 [...] the 4 residents, Dr. Lopez/Lydia. Please see [facility] housestaff notes for full details. History: [...] set up for tomorrow. AGUS JIANG MD Superintendent Operatingrespiratory physician Division of Hospital Medicine Department of Internal Medicine Replaced By [facility] DEPARTMENT: Hosp- [id number] Place of Service: IP - [id number] Date of Service: 05/11/2013 CSN: [id number] Modifiers:GC Resident Involved: Yes Suggested CPT: 43776 Subsequent Visit Exp Prob Foc/Mod Complexity 25 [...] lementsAgus MD - 0 05/10/2013 11:41 AM [facility] 4 GENERAL MEDICINE ATTENDING PROGRESS NOTE ADMIT DATE: 05/02/2013 8:40 PM TODAY'S DATE: 05/10/2013 (HOSPITAL DAY 8) I personally interviewed the patient, performed the beverly elements of the physical examinatio n, reviewed new lab data in [facility], looked at any new radiology images and have developed an u pdated assessment and plan together with the 4 residents, Dr. Lopez/Lydia. Please see [facility] housestaff notes for full details. I [...] disorder 11) Developmental delay AGUS JIANG MD Superintendent Operatingrespiratory physician Division of Hospital Medicine Department of Internal Medicine Replaced By [facility] DEPARTMENT: Hosp- [id number] Place of Service: - [id number] Date of Service: 05/10/2013 CSN: [id number] Modifiers:GC Resident Involved: Yes Suggested CPT: 19029 Subsequent Visit Detailed/High complexity 35 min azo, [...] above. Jessica Lopez MD Anesthesiology, PGY-1 Pager [phone] lementsAgus MD - 0 05/09/2013 3:08 PM [...] disorder 11) Developmental delay AGUS JIANG MD Superintendent Operatingrespiratory physician Division of Hospital Medicine Department of Internal Medicine Replaced By [facility] DEPARTMENT: Hosp- [id number] Place of Service: - Date of Service: 05/09/2013 CSN: [id number] Modifiers:GC Resident Involved: Yes Suggested CPT: 19215 Subsequent Visit Exp Prob Foc/Mod Complexity 25 [...] pending better optimization of fluid status, hopeful [facility] Code Status:} Full Code -:Interval Hx:- none [...] and plan. Cristine Freeman Internal Medicine Resident [id number] lements, Johan lopez MD - 05/08/2013 2:00 [...] the 4 residents, Dr. Lopez/Lydia. Please see [facility] housestaff notes for full details. I [...] disorder 11) Developmental delay AGUS JIANG MD Superintendent Operatingrespiratory physician Division of Hospital Medicine Department of Internal Medicine [facility] DEPARTMENT: Hosp- [id number] Place of Service: - [id number] Date of Service: 05/08/2013 CSN: [id number] Modifiers:GC Resident Involved: Yes Suggested CPT: 26951 Subsequent Visit Exp Prob Foc/Mod Complexity 25 [...] above. Jessica Lopez MD Anesthesiology, PGY-1 Pager [phone] leAgus madden MD - 0 05/07/2013 4:36 [...] disorder 11) Developmental delay AGUS JIANG MD Superintendent Operatingrespiratory physician Division of Hospital Medicine Department of Internal Medicine Replaced By [facility] DEPARTMENT: Hosp- [id number] Place of Service: IP - 50100 Date of Service: 05/07/2013 CSN: [id number] Modifiers:GC Resident Involved: Yes Suggested CPT: 63884 Subsequent Visit Exp Prob Foc/Mod Complexity 25 [...] above. Jessica Lopez MD Anesthesiology, PGY-1 Pager [phone] lechano, MD Agus - 0 05/06/2013 7:47 [...] kg/(m^2) No distress JVP difficult to assess [place] edema still present in the legs. Assessment [...] disorder 11) Developmental delay AGUS JIANG MD Superintendent Operatingrespiratory physician Division of Hospital Medicine Department of Internal Medicine [facility] DEPARTMENT: Hosp- [id number] Place of Service: IP Date of Service: 05/06/2013 CSN: [id number] Modifiers:GC Resident Involved: Yes Suggested CPT: 41250 Subsequent Visit Exp Prob Foc/Mod Complexity 25 [...] above. Jessica Lopez MD Anesthesiology, PGY-1 Pager [phone] Agus Sandoval MD - 0 05/05/2013 2:15 PM [facility] 4 GENERAL MEDICINE ATTENDING PROGRESS NOTE ADMIT DATE: 05/02/2013 8:40 PM TODAY'S DATE: 05/05/2013 (HOSPITAL DAY 3) I personally interviewed the patient, performed the beverly elements of the physical examinatio n, reviewed new lab data in [facility], looked at any new radiology images [...] disorder 11) Developmental delay AGUS JIANG MD Superintendent Operatingrespiratory physician Division of Hospital Medicine Department of Internal Medicine Replaced By [facility] DEPARTMENT: Hosp- [id number] Place of Service: IP - 09761 Date of Service: 05/05/2013 CSN: [id number] Modifiers:GC Resident Involved: Yes Suggested CPT: 83686 Subsequent Visit Exp Prob Foc/Mod Complexity 25 [...] above. Jessica Lopez MD Anesthesiology, PGY-1 Pager [phone] Jay Jay Howell MD - 05/04/2013 5:22 [...] Jay Grimaldo MD Internal Medicine, PGY-3 Pager [phone] eion Jarrell - 2012 4:52 PM PDTTransthoracic echocardiogram completed. Final report to follow. Agus Sandoval MD - 013 1:35 PM [facility] 4 GENERAL MEDICINE ATTENDING PROGRESS NOTE ADMIT DATE: 05/02/2013 8:40 PM TODAY'S DATE: 05/04/2013 (HOSPITAL DAY 2) I personally interviewed the patient, performed the beverly elements of the physical examinatio n, reviewed new lab data in [facility], looked at any new radiology images and have developed an u pdated assessment and plan together with the 4 residents, Dr. Lopez/Dillan. [facility] for full details. I agree [...] disorder 11) Developmental delay AGUS JIANG MD Superintendent Operatingrespiratory physician Division of [facility] Medicine Department of Internal Medicine [facility] DEPARTMENT: Hosp- [id number] Place of Service: IP - 29957 Date of Service: 05/04/2013 CSN: [id number] Modifiers:GC Resident Involved: Yes Suggested CPT: 02101 Subsequent Visit Exp Prob Foc/Mod Complexity 25 min ao, Daniel Tobar MD - 8:47 AM PDT Neurology Follow Up Note Author: RAYNE HAMLIN MD Attending: Agus Jiang MD Date: 05/04/2013 8:48 AM Patient: Keo Rowley [facility] Day: 2 ID: Keo Rowley is a [...] Hamlin MD Department of Neurology PGY-1 Pager [phone] PGY-4 Addendum I can follow as her outpatient neurologist if necessary. Daniel Guzman MD PGY-4 Neuro uchichi, Jay Jay Self [...] she knew where she was, she said "[facility]." She thought it to be 2008. [...] Jay Grimaldo MD Internal Medicine, PGY-3 Pager [phone] viva Cervantes - 2012 2:19 PM PDT INPATIENT PROGRESS NOTE Hospital Day:2 Author: AVIVA CERVANTES Attending Physician: Agus Jiang MD 24-hour events -- Episode of seizure with full body shaking 20s in duration per nursing report. [place] [facility] [place] found to [...] subsequently started on phenytoin. Last seizure per warehouse distribution specialist was 03/26 but warehouse distribution specialist was unaware that she had a seizure [...] assessment and plan. Aviva Cervantes MS4, Pager [phone] azo, Too Bruno MD - 05/03/2013 1:52 [...] B/L, +1 edema up to retirement c yisel b/l Psychiatric: appropriate mood and [...] above. Jessica Lopez MD Anesthesiology, PGY-1 Pager [phone] documented in this enco unter Plan of [...] | + + + + + | [facility] | [address] | [place] [address] | | | SERVICES, CORE | PARK [...] HOSPITAL LABORATORY | [address] | [place] [address] | | | SERVICES, CORE | PARK [...] | | | LABORATORY | | | BAHAMIAN | | | SERVICES, | | | [...] | + + + + + | [facility] | [address] | [place] [address] | | | SERVICES, CORE | NADJA [...] [facility] | [address] | [place] [address] | | | SERVICES, CORE | PARK [...] [facility] | [address] | [place] [address] | | | SERVICES, CORE | PARK [...] [facility] | [address] | [place] [address] | | | SERVICES, CORE | PARK [...] | + + + + + | [facility] | [address] | [place] [address] | | | SERVICES, CORE | NADJA [...] | | | LABORATORY | | | BAHAMIAN | | | SERVICES, | | | [...] | + + + + + | [facility] [employer] | [address] | [place] [address] | | | SERVICES, CORE | PARK [...] [facility] | [address] | [place] [address] | | | SERVICES, CORE | NADJA [...] | [facility] | [address] | [place] [address] | | | SERVICES, CORE | PARK [...] | | | LABORATORY | | | BAHAMIAN | | | SERVICES, | | | [...] | + + + + + | [facility] | [address] | [place] [address] | | | SERVICES, CORE | NADJA [...] by | | | | | | [address],[address] | | | | | | [place] | | | | | | [address] | | | | | | [phone].[employer]. | | | | | | Zane [...] [facility] | [address] | [place], [place] | | | [facility] | | [address] | | + + + + + [...] + | [facility] | [address] | [place] [address] | | | [place] | | | [...] | + + + + + | [facility] | [address] | [place] [address] | | | SERVICES, SPECIAL | NADJA [...] HOSPITAL LABORATORY | [address] | [place] [address] | | | SERVICES, CORE | NADJA [...] [facility] | [address] | [place] [address] | | | SERVICES, CORE | PARK [...] | | | LABORATORY | | | BAHAMIAN | | | SERVICES, | | | [...] [facility] | [address] | [place] [address] | | | SERVICES, CORE | PARK [...] [facility] | [address] | [place] [address] | | | SERVICES, CORE | PARK [...] | | | LABORATORY | | | BAHAMIAN | | | SERVICES, | | | [...] | + + + + + | [facility] | [address] | [place] [address] | | | [facility] | [address] | [...] HOSPITAL LABORATORY | [address] | [place] [address] | | | SERVICES, CORE | NADJA [...] + + + + + + | [id number]% | 0.75 | 2.52 L/sec | [facility] | | | PRE | | | SPECIAL | | | | | | DIAGNOSTICS | | | | | | - | | | | | | PULMONARY | | | | | | FUNCTION | | + + + + + + | [id number]% | 30 | % | [facility] | [...] [facility] | | | INTERPRETAT | ID# [id number] | | SPECIAL | | | ION [...] B | | | | | | Grease Machine Worker: | | | | | | Katty [...] | | | | | | Order# [id number] | | | | | | | [...] | | | | | | 68 [id number]% | | | | | | L/sec 2.52 | | | | | | 0.75 | | | | | | [id number] L/sec | | | | | | | | | | | | 0.75PEF | | | | | | L/sec 6.04 | | | | | | 2.67 [id number]% | | | | | | L/sec [...] ID: | | | | | | [id number] | | | | | | Date: [...] | + + + + + | [facility] | [address] | [place], [place] | | | DIAGNOSTICS - | [address] | [id number] | | | PULMONARY FUNCTION | | [...] + + | [facility] | [address] | [place] [address] | | | SERVICES, CORE | PARK [...] [facility] | [address] | [place] [address] | | | SERVICES, CORE | PARK [...] | | | LABORATORY | | | BAHAMIAN | | | SERVICES, | | | [...] the MDRD equation recommended by the | [facility] | | National Kidney Disease Education Program. Estimated GFR | LABORATORY | | Interpretive Information: <60 mL/min/1.73 sq m | [facility] | | Chronic Kidney [...] | [facility] | [address] | [place] [address] | | | [facility] [place] | [address] | | | + [...] [facility] | [address] | [place] [address] | | | SERVICES, CORE | PARK [...] [facility] | [address] | [place] [address] | | | SERVICES, CORE | PARK [...] | + + + + + | [facility] | [address] | [place] [address] | | | SERVICES, CORE | NADJA [...] | | | LABORATORY | | | BAHAMIAN | | | SERVICES, | | | [...] | + + + + + | [facility] | [address] | [place] [address] | | | SERVICES, CORE | [address] | | | + + + + + MAGNESIUM, PLASMA (05/06/2013 7:42 AM PDT) + +-------+ + + + | Component | Value | Ref Range | Performed | Pathologist | | | | | At | Signature | + +-------+ + + + | MAGNESIUM,P | 1.9 | 1.8 - 2.5 mg/dL | [facility]ER[facility]ALINA | | | JOSEPHMA | | | [...] [facility] | [address] | [place] [address] | | | SERVICES, CORE | PARK [...] [facility] | [address] | [place] [address] | | | SERVICES, CORE | PARK [...] [facility] | [address] | [place] [address] | | | SERVICES, CORE | PARK [...] | + + + + + | [facility] | [address] | [place] [address] | | | SERVICES, CORE | NADJA [...] | | | LABORATORY | | | BAHAMIAN | | | SERVICES, | | | [...] HOSPITAL LAB[facility]ATORY | [address] | [place] [address] | | | SERVICES, CORE | NADJA [...] [facility] | [address] | [place], [place] | | | [facility] | [address] | [address] | | | TESTS | | | [...] [facility] | [address] | [place] [address] | | | SERVICES, CORE | PARK [...] [facility] | [address] | [place] [address] | | | SERVICES, CORE | PARK [...] | + + + + + | [email or web address] | [address] | [place] [address] | | | SERVICES, CORE | NADJA [...] | + + + + + | [facility] | [address] | [place] [address] | | | SERVICES, CORE | NADJA [...] | | | LABORATORY | | | BAHAMIAN | | | SERVICES, | | | [...] | + + + + + | [facility] | [address] | [place] [address] | | | SERVICES, CORE | [address] | | | + + + + + EEG ROUTINE (05/04/2013) + + + | Narrative | Performed At | + + + | Patient Name: Keo Rowley Date of : 1965 Medical | [facility] - | | Record Number: [id number] Date of Test: 05/04/2013 Place of Service: | [facility], | | [facility] [phone] - [phone] [facility] Department: EEG [facility] - [id number] | POINT OF CARE | | ROUTINE [...] Modifier: GC - Resident Present Suggested CPT: 94792 - EEG Routine | | | Awake Only Suggested Dx: 780.39 - Convulsions | | + + + + + + + + | Performing | Address | City/State/Zipcode | Phone Number | | Organization | | | | + + + + + | [facility] | [address] | [place], [place] | | | [facility] | [address] | [address] | | | TESTS | | | [...] [facility] | [address] | [place] [address] | | | SERVICES, CORE | PARK [...] | | | LABORATORY | | | BAHAMIAN | | | SERVICES, | | | [...] | + + + + + | [email or web address] | [address] | [place] [address] | | | JULIETA, EL[place] | NADJA [...] | [facility] | | Test performed by: [employer] [address] | REFERENCE LAB | | [place] [address] | | + + + + + [...] | + + + + + | [facility] | [address] | [place] [address] | | | SERVICES, CORE | NADJA [...] + | [facility] | [address] | [place] [address] | | | [place] | | | | + + + [...] [facility] | [address] | [place] [address] | | | SERVICES, CORE | PARK [...] [facility] | [address] | [place] [address] | | | SERVICES, [place] | PARK [...] HOSPITAL LABORATORY | [address] | [place] [address] | | | [place] RENDON | [address] [...] | + + + + + | [facility] | [address] | [place] [address] | | | SERVICES, CORE | NADJA [...] | | | LABORATORY | | | BAHAMIAN | | | SERVICES, | | | [...] | + + + + + | [email or web address] | [address] | [place] [address] | | | SERVICES, CORE | PARK [...] + | [facility] - | [address] | [place] [address] | | | [place] | | | [...] | + + + + + | [facility] - | [address] | [place] [address] | | | [place] | | | [...] GALVAN | | | | | | ([phone]) on 05/24/2013 | | | | | | 9:44:07 PM | | | | + + + + + + + + | Specimen | + + | | + + + + + | Narrative | Performed At | + + + | Please click | [facility] | | on view image for the detailed interpretation from [employer] results. | CARDIOLOGY | + + + + + | Procedure Note | + + | Interface, Cardiology Results - 05/24/2013 9:44 PM PDT Please click on view image | | for the detailed interpretation from [employer] results. | + + + + + + + | Performing | Address | City/State/Zipcode | Phone Number | | Organization | | | | + + + + + | [facility] | [address] | [place], [place] | | | CARDIOLOGY | [address] | [address] | | + + + + + [...] GALVAN | | | | | | ([phone]) on 05/04/2013 | | | | | | 11:36:09 AM | | | | + + + + + + + + | Specimen | + + | | + + + + + | Narrative | Performed At | + + + | Please click | [facility] | | on view image for the detailed interpretation from [employer] results. | CARDIOLOGY | + + + + + | Procedure Note | + + | Interface, Cardiology Results - 05/04/2013 11:36 AM PDT Please click on view image | | for the detailed interpretation from [employer] results. | + + + + + + + | Performing | Address | City/State/Zipcode | Phone Number | | Organization | | | | + + + + + | [facility] | [address] | [place], [place] | | | CARDIOLOGY | [address] | [address] | | + + + + + [...] | + + + + + | [facility] [employer] [facility] | [address] | [place] [address] | | | SERVICES, CORE | NADJA [...] [facility] | [address] | [place] [address] | | | SERVICES, CORE | PARK [...] | + + + + + | [facility] | [address] | [place] [address] | | | SERVICES, CORE | NADJA [...] | | | LABORATORY | | | BAHAMIAN | | | SERVICES, | | | [...] | + + + + + | [facility] | [address] | [place] [address] | | | SERVICES, [place] | NADJA [...] Edema | + + | Seizure disorder ([facility]) Unspecified epilepsy without mention of intractable epilepsy [...] | | First dose on [facility] 05/03/13 at 0900, | | | [...] | | | | | | on [facility] 05/05/13 at 2100 | | | [...] 8:57 | | | | | on [facility] 05/03/13 at 0900, Until | | [...] | | | oral, ONCE, 1 dose, [facility] 05/09/13 | | PM PDT | [...] | oral, ONCE, 1 dose, [facility] 05/10/13 | | AM PDT | [...] | oral, ONCE, 1 dose, [facility] 05/10/13 | | PM PDT | [...]
--- OUTSIDE RECORDS SUMMARY | ~2020-05-02 | XMS | Encounter Summary ---
Demographics + + + | Address | [address] | | | [place] [address] | + + + | Home Phone [...] | Organization | [facility] | | | and [place]am[place] | + + + | Address | Unknown | + + + | Phone | Unavailable | + + + Support + + + + + | Name | Relationship | Address | Phone | + + + + + | [employer] | ECON | [phone] | | | | | Unknown | | + + + + + Care Team Providers + +------+ + | Care Puttier Name | Role | Phone | + [...] | | | Pulmonology | airway | PRESS OFFICER [address] | MD | | | | | obstruction, | [address] | | | | | | not | [place], | | | | | | elsewhere | [place] [address] | | | | | | classified | Phone: | | | | | | Procedures | [phone] | | | | | | F/U | Fax: | | | | | | | [phone] | | +--------+--------+ + + + + Encounter Details +--------+---------+ + + + | Date | Type | Department | Care Team | Description | +--------+---------+ + + + | 08/08/ | Office | [facility] [place] | Offenstein, | Primary pulmonary | | 2015 | Visit | PULMONARY [address] | Vera Farrar MD | hypertension | | | | [place], | | (Primary Dx); COPD | | | | [place] [address] | | (chronic obstructive | | | | [phone] | | pulmonary disease); | | | [...] to have a box delivered by the Crispy Gamer. Wear the finger probe through the night. Do the test on 5L bled in to th e BiPAP. Call the Karma to have the box picked up the [...] follow up echocardiogram, which was done in [place] . Since their last visit she feels [...] Years of Education: N/A Occupational History Disabled. [employer] Social History Main Topics Smoking status: Current [...] TABS Take 2,000 Units by mouth Daily. [place] Starch POWD by Does not apply route [...] mg onto the skin every 24 hours. [place]-3 Fatty Acids (SEA-OMEGA 30) 1200 MG CAPS [...] echo in July with visit by local sewing machine assembler. If further increase in estimated PASP by [...] made to ensure accuracy; however, inadvertent computerized pediatric np errors may be pre sent. documented in [...] | | | | | [place] [address] | | | | | | [phone] | | | | | | | | +--------+ + + + + | 07/23/ | Office | Pulmonology | Helen Astudillo | | 2019 | Visit | | MD Vikash [address] | | | | | | [address] [place] | | | | | | [place] [address] | | | | | | [phone] | | | | | | | [...] [address] | [place] | [phone] | | [facility] | | [address] | | | - LABORATORY | | [...] 13 | 7 - 18 mg/dL | [facility] | | | | | | [facility] | | | | | | MEDICAL | | | | | | CENTER - | | | | | | LABORATORY | | + + + + + + | Creatinine | 0.91 | 0.60 - 1.30 | [place] | | | | | mg/dL | [facility] | | | | | | MEDICAL | | | | | | CENTER - | | | | | | LABORATORY | | + + + + + + | eGFR if not | >60Comment: GLOMERULAR | >=60 | [facility] | | | | FILTRATION | mL/min/1.73m2 | [facility] | | | [place] | RATE,ESTIMATED | | MEDICAL | | | | mL/min/1.62u1Frah than | | CENTER - | | [...] | bulin Ratio | | | [facility] | [...] [address] | [place] | [phone] | | [facility] | | [address] | | | - LABORATORY | | [...]
--- OUTSIDE RECORDS SUMMARY | ~2020-05-02 | XMS | Encounter Summary ---
Demographics + + + | Address | [address] | | | [place] [address] | + + + | Home Phone [...] Organization | [facility] | | | and [place]am[place] | + + + | Address | Unknown | + + + | Phone | Unavailable | + + + Support + + + + + | Name | Relationship | Address | Phone | + + + + + | [employer] | ECON | [phone] | | | | | Unknown | | + + + + + Care Team Providers + +------+ + | Care Mechanic Recovery Name | Role | Phone | + [...] S | Dx) | | | | [place], | [place] [address] | | | | | [place] [address] | [phone] | | | | | [phone] | | | +--------+ + + + [...] | | | | | | [place] [address] | | | | | | [phone] | | | | | | | | +--------+ + + + + | 07/23/ | Office | Pulmonology | Filibertojina Helen | | | 2019 | Visit | | MD Vikash [address] | | | | | | [address] [place] | | | | | | [place] [address] | | | | | | [phone] | | | | | | | | +--------+ + + + + documented as of this encounter Results XR Chest PA and Lateral (02/01/2017 11:13 AM PDT) + + | Specimen | + + | | + + + + + | Narrative | Performed At | + + + | CLINICAL INFORMATION: Nodular density, solitary pulmonary nodule | [facility] | | COMPARISON: 07/10/2015. FINDINGS: Frontal and lateral views of | [facility] | | the chest. Lungs: No [...] [address] | [place] | [phone] | | [facility] | | [address] | | | - IMAGING | | | | + + + + + documented in this encounter Visit Diagnoses + + | Diagnosis | + + | Lung nodule - Primary Solitary pulmonary nodule | + + documented in this encounter"
--- OUTSIDE RECORDS SUMMARY | ~2020-05-02 | XMS | Encounter Summary ---
Demographics + + + | Address | [address] | | | [place] [address] | + + + | Home Phone [...] | Author | [facility] | | | and [place]am[place] | + + + | Organization | [facility] | | | and [place]am[place] | + + + | Address | Unknown | + + + | Phone | Unavailable | + + + Support + + + + + | Name | Relationship | Address | Phone | + + + + + | [employer] | ECON | [phone] | | | | | Unknown | | + + + + + Care Team Providers + +------+ + | Care Contract Clerk Name | Role | Phone | + +------+ + | Gela Trimble NP | PCP | | + +------+ + Encounter Details +--------+ + + + + | Date | Type | Department | Care Team | Description | +--------+ + + + + | 09/17/ | Hospital | [facility] | Saharaenstein, | Primary pulmonary | | 2012 | Encounter | MED CTR LABORATORY | Vera Farrar MD | hypertension (HCC) | | | | [address] | | | | | | [place] | | | | | | [address] | | | | | | [phone] | | | +--------+ + + + [...] | | | | | ([facility]) | | | | | | + + + +---------+ + + | buPROPion | Take 100 mg by mouth | | 0 | | | | (WELLBUTRIN) 100 mg | 2 times daily. | | | | 6 | | tablet | | | | | | + + + +---------+ + + | Cle[place] Starch POWD | by Does not apply [...] + + + +---------+ + + | [place]-3 Fatty | Take by mouth. | | [...] | | | | | [place] [address] | | | | | | [phone] | | | | | | | | +--------+ + + + + | 07/23/ | Office | Pulmonology | Helen Astudillo | | | 2019 | Visit | | MD Joey Su[address] | | | | | | [address] [place] | | | | | | [place] [address] | | | | | | [phone] | | | | | | | [...] | [facility] | | | | [facility] | | MEDICAL | | | [...] [address] | [place] | [phone] | | [facility] | | [address] | | | - LABORATORY | | | | + + + + + | [address] | [address] | [place] | | | [facility] | | [address] | | | - LABORATORY | | | | + + + + + documented in this encounter Visit Diagnoses + + | Diagnosis | + + | Primary pulmonary hypertension (HCC) Primary pulmonary hypertension | + + documented in this encounter"
--- OUTSIDE RECORDS SUMMARY | ~2020-05-02 | XMS | Encounter Summary ---
Demographics + + + | Address | [address] | | | [place] [address] | + + + | Home Phone [...] + | Organization | [facility] | | | and Abram[place] | + + + | Address | Unknown | + + + | Phone | Unavailable | + + + Support + + + + + | Name | Relationship | Address | Phone | + + + + + | [employer] | ECON | [phone] | | | | | Unknown | | + + + + + Care Team Providers + +------+ + | Care Assistant Paralegal Name | Role | Phone | [...] | | | | ABDIRASHID BROTHERS | [place], [place] | | | | | [place] | [address] | | | | | [address] | [phone] | | | | | [phone] | | | +--------+ + + + [...] | | | | | [place] [address] | | | | | | [phone] | | | | | | | | +--------+ + + + + | 07/23/ | Office | Pulmonology | Helen Astudillo | | | 2019 | Visit | | MD [address] | | | | | | [address] | | | | | | [place] [address] | | | | | | [phone] | | | | | | | | +--------+ + + + + documented as of this encounter Visit Diagnoses Not on filedocumented in this encounter"
--- OUTSIDE RECORDS SUMMARY | ~2020-05-02 | XMS | Encounter Summary ---
Demographics + + + | Address | [address] | | | [place] [address] | + + + | Home Phone [...] Organization | [facility] | | | and [place]am[place] | + + + | Address | Unknown | + + + | Phone | Unavailable | + + + Support + + + + + | Name | Relationship | Address | Phone | + + + + + | [employer] | ECON | [id number] | | | | | Unknown | | + + + + + Care Team Providers + +------+ + | Care Logging Tractor Operator Swamp Name | Role | Phone | + [...] | Primary | Offenstein, | [address] | | | | | pulmonary | Vera B, | [place], | | | | | hypertension | MD [address] | [place] | | | | | ([facility]) | [address] | [address] | | | | | Procedures | [place], | Phone: | | | | | ECHO | [place] [address] | [phone] | | | | | Complete NE | | Fax: | | | | | ECHO HEART | | [phone] | | | | | [place] | [...] | | | Pulmonology | airway | [address]AR [address] | MD | | | | | obstruction, | [place] | | | | | | not | [address] | | | | | | elsewhere | [place], | | | | | | classified | [place] [address] | | | | | | Procedures | Phone: | | | | | | F/U | [phone] | | | | | | | Fax: | | | | | | | [phone] | | +--------+--------+ + + + + Encounter Details +--------+---------+ + + + | Date | Type | Department | Care Team | Description | +--------+---------+ + + + | 03[facility]12/ | [facility] [place] | Fatou, | Primary pulmonary | | 2014 | Visit | PULMONARY [address] | Vera Farrar MD | hypertension; | | | | [place], | | Exercise hypoxemia | | | | [place] [address] | | (HCC); Sleep related | | | | [phone] | | hypoxemia; COPD | | | [...] Years of Education: N/A Occupational History Disabled. [employer] Social History Main Topics Smoking status: Former Smoker -- 1.00 packs/day for 20 years Types: Cigarettes Quit date: 12/10/2014 Smokeless tobacco: None Comment: restarted in August 2014, quit again 12/10/14 Alcohol Use: Yes Comment: history of abuse Drug Use: Yes Special: Cocaine Comment: history of cocaine use Sexual Activity: None Other Topics Concern None Social History Narrative Lives at [facility]. Allergies: Allergies Allergen Reactions Erythromycin Metronidazole [...] TABS Take 2,000 Units by mouth Daily. [place] Starch POWD by Does not apply route [...] mg onto the skin every 24 hours. [place]-3 Fatty Acids (SEA-OMEGA 30) 1200 MG CAPS [...] kg (205 lb 11.2 oz) | B MA 41.52 kg/m2 | SpO2 90% RA General [...] breath sounds are diminished bilaterally, no wheezes, electrician aircraft ckles or rhonchi Chest Wall: No deformity [...] Range: 0-100 6 eGFR, External Latest Range: 60-205850 58 (A) Immunization History Administered Date(s) Administered [...] and [facility] 3. Sleep related hypoxemia [...] made to ensure accuracy; however, inadvertent computerized clinical trials manager errors may be pre sent. documented [...] | | | | | [place] [address] | | | | | | [phone] | | | | | | | | +--------+ + + + + | 07/23/ | Office | Pulmonology | Baudilio Helen | | | 2019 | Visit | | MD Vikash [address] | | | | | | [address] [place] | | | | | | [place] [address] | | | | | | [phone] | | | | | | | [...] Performed At | + + + | [facility] ECHOCARDIOGRAM REPORT | ADDISON | | STUDY DATE: 03/26/2015 PATIENT NAME: Margarita Rowley : | [facility] | | 1965 PCP: Physician No CLINICAL | [facility] | | HISTORY/DIAGNOSIS: Pulmonary [...] Signed by: Derick Strong, | | | [facility] 03/26/2015 13:52 Lease Examiner: Maciel Silva, | | | RDCS, RDMS, RVT | | + + + + + + + + | Performing | Address | City/State/Zipcode | Phone Number | | Organization | | | | + + + + + | [facility] | [address] | [place] | [phone] | | [facility] | | [address] | | | - IMAGING | | [...]
--- OUTSIDE RECORDS SUMMARY | ~2020-05-02 | XMS | Encounter Summary ---
Demographics + + + | Address | [address] | | | [place] [address] | + + + | Home Phone [...] Author + + + | Author | [facility] | + + + | Organization | [facility] | + + + | Address | Unknown | + + + | Phone | Unavailable | + + + Support + + +---------+ + | Name | Relationship | Address | Phone | + + +---------+ + | Lidia Thibodeaux | ECON | Unknown | | + + +---------+ + Care Team Providers + +------+ + | Care Molder Bench Name | Role | Phone | + [...] Rd | | | | | | [place], [place] | | | | | | [address] | | | +--------+ + + + [...]
--- OUTSIDE RECORDS SUMMARY | ~2020-05-02 | XMS | Encounter Summary ---
Demographics + + + | Address | [address] | | | [place] [address] | + + + | Home Phone [...] | Organization | [facility] | | | and [place]am[place] | + + + | Address | Unknown | + + + | Phone | Unavailable | + + + Support + + + + + | Name | Relationship | Address | Phone | + + + + + | [employer] | ECON | [id number] | | | | | Unknown | | + + + + + Care Team Providers + +------+ + | Care Criminal Attorney Name | Role | Phone | + [...] MD | hypertension | | | | [place], | | (Primary Dx); [place] | | | | [place] [address] | | (chronic obstructive | | | | [phone] | | pulmonary disease); | | | [...] records from [facility], wh enrique I will also get. We will let [...] seeing a neurologist for the tremors in [facility] next week. Her breathing [...] well. She notes she was tired y . Her AHI is down to 10.9 on [...] Years of Education: N/A Occupational History Disabled. [employer] Social History Main Topics Smoking status: Former Smoker -- 1.0 packs/day for 20 years Types: Cigarettes Quit date: 05/14/2013 Smokeless tobacco: None Alcohol Use: Yes Comment: history of abuse Drug Use: Yes Special: Cocaine Comment: history of cocaine use Sexually Active: None Other Topics Concern None Social History Narrative Lives at [employer]. Allergies: Allergies Allergen Reactions Erythromycin Metronidazole Penicillins [...] TABS Take 2,000 Units by mouth Daily. [place] Starch POWD by Does not apply route 2 times daily. divalproex (DEPAKOTE) 250 mg EC tablet Take 250 mg by mouth Daily. divalproex (DEPAKOTE) 500 mg EC tablet Take 500 mg by mouth Daily. docusate sodium (COLACE) 50 MG capsule Take 50 mg by mouth 2 times daily. Elastic Bandages & Supports (MEDICAL COMPRESSION STOCKINGS) MIS by Does not apply rout e. furosemide [...] tablet Take 15 mg by mouth Daily. [place]-3 Fatty Acids (SEA-OMEGA 30) 1200 MG CAPS [...] mouth 2 times daily. Respiratory Therapy Supplies [facility] BIPAP ST rate 8 cm H2O. IPAP 19/EPAP 5. O2 bleed in a t 2 l/m. Lifetime. Dx: 327.23 1 each 0 Respiratory Therapy Supplies [facility] Please contact Dr. Lainez's [...] Paroxysmal atrial fibrillation- Per caregiver seen at [facility] visit. We will ge t records [...] Letairis. 5. We will get records from [facility] visit, but I did suggest cardiology [...] made to ensure accuracy; however, inadvertent computerized patient insurance clerk errors may be pre sent. Electronically [...] [address] | | | | | | [place] [address] | | | | | | [phone] | | | | | | | | +--------+ + + + + | 07/23/ | Office | Pulmonology | Helen Astudillo | | 2019 | Visit | | MD Vikash [address] | | | | | | [address] [place] | | | | | | [place] [address] | | | | | | [phone] | | | | | | | [...]
--- OUTSIDE RECORDS SUMMARY | ~2020-05-02 | XMS | Encounter Summary ---
Demographics + + + | Address | [address] | | | [place] [address] | + + + | Home Phone [...] | Organization | [facility] | | | and [place]am[place] | + + + | Address | Unknown | + + + | Phone | Unavailable | + + + Support + + + + + | Name | Relationship | Address | Phone | + + + + + | [employer] | ECON | [phone] | | | | | Unknown | | + + + + + Care Team Providers + +------+ + | Care Clay Modeler Name | Role | Phone | + +------+ + | Gela Trimble POLYSOMNOGRAPHY TECHNICIAN | PCP | | + +------+ + [...] + + | 07/09/ | Telephone | [facility] | Roberto Salguero | Other (Appointment | | 2012 | | [address] | MD Ananth [address] | Cancellation) | | | | [place], | [address] [place] | | | | | [place] [address] | [place] [address] | | | | | [phone] | [phone] | | | | | | | [...] Jenise De Luna - 07/09/2013 10:18 AM PDTTita project called, kriss lawrence stated that the patient is to establish with Dr. Pritchettronically signed by Jenise De Luna at 07/09/2013 [...] | | | | | [place] [address] | | | | | | [phone] | | | | | | | | +--------+ + + + + | 07/23/ | Office | Pulmonology | Helen Astudillo | | | 2019 | Visit | | MD [address] | | | | | | [address] | | | | | | [place] [address] | | | | | | [phone] | | | | | | | | +--------+ + + + + documented as of this encounter Visit Diagnoses Not on filedocumented in this encounter"
--- OUTSIDE RECORDS SUMMARY | ~2020-05-02 | XMS | Encounter Summary ---
Demographics + + + | Address | [address] | | | [place] [address] | + + + | Home Phone [...] [facility] | | | and [place] | + + + | Address | Unknown | + + + | Phone | Unavailable | + + + Support + + + + + | Name | Relationship | Address | Phone | + + + + + | [employer] | ECON | [id number] | | | | | Unknown | | + + + + + Care Team Providers + +------+ + | Care Pencils Washer Name | Role | Phone | + +------+ + | Yuni Shrestha | PCP | | + +------+ + Encounter Details +--------+ + + + + | Date | Type | Department | Care Team | Description | +--------+ + + + + | 02/02/ | Hospital | [facility] | Saharaenstein, | Primary pulmonary | | 2016 | Encounter | MED CTR PULMONARY | Vera Farrar MD | hypertension | | | | FUNCTION [address] | | | | | | [place], | | | | | | [place] [address] | | | | | | [phone] | | | +--------+ + + + [...] + + + +---------+ + + | [place] Starch POWD | by Does not apply [...] + + + +---------+ + + | [place]-3 Fatty | Take by mouth. | | [...] | | | | | [place] [address] | | | | | | [phone] | | | | | | | | +--------+ + + + + | 07/23/ | Office | Pulmonology | Helen Astudillo | | 2019 | Visit | | MD Joey Suh | | | | | | [address] | | | | | | [place] [address] | | | | | | [phone] | | | | | | | [...]
--- OUTSIDE RECORDS SUMMARY | ~2020-05-02 | XMS | Encounter Summary ---
Demographics + + + | Address | [address] | | | [place] [address] | + + + | Home Phone [...] Organization | [facility] | | | and [place]am[place] | + + + | Address | Unknown | + + + | Phone | Unavailable | + + + Support + + + + + | Name | Relationship | Address | Phone | + + + + + | [employer] | ECON | [phone] | | | | | Unknown | | + + + + + Care Team Providers + +------+ + | Care Cancer Genetics Assistant Name | Role | Phone | [...] | apnea; Hypoxemia | | | | [place], | | | | | | [place] [address] | | | | | | [phone] | | | +--------+ + + + [...] | | | | | [place] [address] | | | | | | [phone] | | | | | | | | +--------+ + + + + | 07/23/ | Office | Pulmonology | Helen Astudillo | | | 2019 | Visit | | MD [address] | | | | | | [address] [place] | | | | | | [place] [address] | | | | | | [phone] | | | | | | | | +--------+ + + + + documented as of this encounter Visit Diagnoses + + | Diagnosis | + + | Obstructive sleep apnea Obstructive sleep apnea (adult) (pediatric) | + + | Hypoxemia | + + documented in this encounter"
--- OUTSIDE RECORDS SUMMARY | ~2020-05-02 | XMS | Encounter Summary ---
Demographics + + + | Address | [address] | | | [place] [address] | + + + | Home Phone [...] Organization | [facility] | | | and [place]am[place] | + + + | Address | Unknown | + + + | Phone | Unavailable | + + + Support + + + + + | Name | Relationship | Address | Phone | + + + + + | [employer] | ECON | [id number] | | | | | Unknown | | + + + + + Care Team Providers + +------+ + | Care Director Of Provider Relations Name | Role | Phone | + [...] | | 2015 | | GASTROENTEROLOGY | Vasrha DEVULCANIZER LOADER [address] | | | | | [address] [place] | [address] | | | | | [address] [place], [place] | [place], [place] | | | | | [address] | [address] | | | | | [phone] | | | +--------+--------+ + + + [...] | | | | | [place], [place] [address] | | | | | | [phone] | | | | | | | | +--------+ + + + + | 07/23/ | Office | Pulmonology | Helen Astudillo | | | 2019 | Visit | | MD [address] | | | | | | [address] [place] | | | | | | [place] [address] | | | | | | [phone] | | | | | | | | +--------+ + + + + documented as of this encounter Visit Diagnoses Not on filedocumented in this encounter"
--- OUTSIDE RECORDS SUMMARY | ~2020-05-02 | XMS | Encounter Summary ---
Demographics + + + | Address | [address] | | | [place] [address] | + + + | Home Phone [...] | Organization | [facility] | | | and [place]am[place] | + + + | Address | Unknown | + + + | Phone | Unavailable | + + + Support + + + + + | Name | Relationship | Address | Phone | + + + + + | [employer] | ECON | [phone] | | | | | Unknown | | + + + + + Care Team Providers + +------+ + | Care Lawn Mower Sharpener Name | Role | Phone | + [...] | | [facility] LAB[facility]ATORY | Zari Double End Tenon Operator | use | | | | [address] [place] | | | | | | [place] | | | | | | [address] | | | | | | [phone] | | | +--------+ + + + [...] | | | | | [place] [address] | | | | | | [phone] | | | | | | | | +--------+ + + + + | 07/23/ | Office | Pulmonology | Helen Astudillo | | | 2019 | Visit | | MD [address] | | | | | | [address] [place] | | | | | | [place] [address] | | | | | | [phone] | | | | | | | [...] | | GLOMERULAR FILTRATION | mL/min/1.73m2 | [facility] | | | ICELANDIC | RATE,ESTIMATED | | MEDICAL | | | | mL/min/1.82r1Kpod than | | CENTER - | | [...] + | [facility] | [address] [place] [address] | [place] | [phone] | | [facility] | | [address] | | | - LABORATORY | | [...] | | | | | M/uL | [facility] | | | | [...] + | [facility]. | [address] | [place] | [phone] | | [facility] | | [address] | | | - LABORATORY | | | | + + + + + documented in this encounter Visit Diagnoses + + | Diagnosis | + + | High risk medication use Encounter for long-term (current) use of other medications | + + documented in this encounter"
--- OUTSIDE RECORDS SUMMARY | ~2020-05-02 | XMS | Encounter Summary ---
Demographics + + + | Address | [address] | | | [place] [address] | + + + | Home Phone [...] Organization | [facility] | | | and [place]am[place] | + + + | Address | Unknown | + + + | Phone | Unavailable | + + + Support + + + + + | Name | Relationship | Address | Phone | + + + + + | [employer] | ECON | [phone] | | | | | Unknown | | + + + + + Care Team Providers + +------+ + | Care Adolescent Specialist Name | Role | Phone | [...] | | | | | | [place] [address] | | | | | | [phone] | | | +--------+ + + + [...] | | | | | [place] [address] | | | | | | [phone] | | | | | | | | +--------+ + + + + | 07/23/ | Office | Pulmonology | Helen Astudillo | | | 2019 | Visit | | MD Joey Suh [address] | | | | | | [address] [place] | | | | | | [place] [address] | | | | | | [phone] | | | | | | | [...]
--- OUTSIDE RECORDS SUMMARY | ~2020-05-02 | XMS | Encounter Summary ---
Demographics + + + | Address | [address] | | | [place] [address] | + + + | Home Phone [...] Organization | [facility] | | | and [place] | + + + | Address | Unknown | + + + | Phone | Unavailable | + + + Support + + + + + | Name | Relationship | Address | Phone | + + + + + | [employer] | ECON | [id number] | | | | | Unknown | | + + + + + Care Team Providers + +------+ + | Care Community Outreach Manager Name | Role | Phone | + +------+ + | Gela Trimble NP | PCP | | + +------+ + Encounter Details +--------+ + + + + | Date | Type | Department | Care Team | Description | +--------+ + + + + | 09/11/ | Hospital | [facility] | Saharaenstein, | Primary pulmonary | | 2013 | Encounter | MED [facility] PULMON[facility] | Vera Farrar MD | hypertension; COPD | | | | FUNCTION [address] | | (chronic obstructive | | | | [place], | | pulmonary disease); | | | | [place] [address] | | Hypoxemia | | | | [phone] | | | +--------+ + + + [...] | | | | | | ([facility]) | | | | | | + + + +---------+ + + | buPROPion | Take 100 mg by mouth | | 0 | | | | (WELLBUTRIN) 100 mg | 2 times daily. | | | | 6 | | tablet | | | | | | + + + +---------+ + + | [place] Starch POWD | by Does not apply [...] + + + +---------+ + + | [place]-3 Fatty | Take by mouth. | | [...] documented as of this encounter Procedure Notes ALBA [facility]AN [facility] - 09/11/2014 12:00 AM PSTAssociated Order(s): DIAGNOSTIC REPORT - EXTERNAL SCAN NBASE [facility]AN [facility] - 08/31 12:00 AM PSTAssociated Order(s): DIAGNOSTIC REPORT - EXTERNAL SCANElectronically sign ed by Thor Castro at 09/20/2014 12:20 PM PSTdocumented in this [...] | | | | | [place] [address] | | | | | | [phone] | | | | | | | | +--------+ + + + + | 07/23/ | Office | Pulmonology | Helen Astudillo | | | 2019 | Visit | | MD [address] | | | | | | [address] [place] | | | | | | [place] [address] | | | | | | [phone] | | | | | | | [...]
--- OUTSIDE RECORDS SUMMARY | ~2020-05-02 | XMS | Encounter Summary ---
Demographics + + + | Address | [address] | | | [place] [address] | + + + | Home Phone [...] + + + | Author | [facility] | + + + | Organization | [facility] | + + + | Address | Unknown | + + + | Phone | Unavailable | + + + Support + + +---------+ + | Name | Relationship | Address | Phone | + + +---------+ + | Lidia Thibodeaux | ECON | Unknown | | + + +---------+ + Care Team Providers + +------+ + | Care Junior Designer Name | Role | Phone | [...] | | | | Melanocytic | Yuni, VP PRODUCTION | Marivel C, | | | | | nevi, | [facility] | ,PhD 1936 | | | | | unspecified | Terence | Jose Carlos | | | | | | Family Care | [place], | | | | | | [address] | [place] [address] | | | | | | Terence Carter | Phone: | | | | | | [place], | [phone] | | | | | | [place] [address] | Fax: | | | | | | Phone: | [phone] | | | | | | [phone] | | | | | | | Fax: | | | | | | | [phone] | | +--------+--------+ + + + + Encounter Details +--------+---------+ + + + | Date | Type | Department | Care Team | Description | +--------+---------+ + + + | 07/19/ | Office | Dermatology at | Marivel Rao, | Nevus (Primary Dx) | | 2015 | Visit | [facility] | ,PhD 1936 | | | | | Clinic [address] | [address] [place], [place] | | | | | [place], [place] | [address] | | | | | [address] | [phone] | | | | | [phone] | | | +--------+---------+ + + + [...] skin cance rs including melanoma. ? The [place] [employer] (AAD) recommends you wear [...] information is available at the following websites: http://www.[facility]/xd/health/services/dermatology/for-patients/health_info.cfm - [facility] Derm atology http://www.aad.org/public/sun/smart.html - AAD Website [...] cancer. She is here today with her roll edge stitcher hand. Vega skin type II. She does occasionally [...] fail to improve. Marivel Rao M.D. Ph.D. Billet Worker Department of Dermatology [facility] ([facility] Dermatology documented in th is encounter Plan of Treatment Not on filedocumented as of this encounter Visit Diagnoses + + | Diagnosis | + + | Nevus - Primary Benign neoplasm of skin, site unspecified | + + documented in this encounter
--- OUTSIDE RECORDS SUMMARY | ~2020-05-02 | XMS | Encounter Summary ---
Demographics + + + | Address | [address] | | | [place] [address] | + + + | Home Phone | | + + + | Preferred Language | Unknown | + + + | Marital Status | Single | + + + | Confucianist Affiliation | NRP | + + + [...] Providers + +------+ + | Care International Broadcast Music Librarian Name | Role | Phone | [...] Pavilion | | | | | | [address] | | | | | | Loop Physician's | | | | | | [place], [address] [place] [address] | | | | | | [place], [place] | | | | | | [address] | | | | | | [phone] | | | +--------+ + + + [...]
--- OUTSIDE RECORDS SUMMARY | ~2020-05-02 | XMS | Encounter Summary ---
Demographics + + + | Address | [address] | | | [place] [address] | + + + | Home Phone [...] | [facility] | | | and [place] | + + + | Address | Unknown | + + + | Phone | Unavailable | + + + Support + + + + + | Name | Relationship | Address | Phone | + + + + + | [employer] | ECON | [id number] | | | | | Unknown | | + + + + + Care Team Providers + +------+ + | Care Business Development Engineer Name | Role | Phone | + +------+ + | Yuni Shrestha | PCP | | + +------+ + Encounter Details +--------+ + + + + | Date | Type | Department | Care Team | Description | +--------+ + + + + | 03/20/ | Hospital | [facility] | Conversion | Diagnosis unknown | | 2016 | Encounter | CONVERSION DEP [address] | Transaction, | | | | | JAIMIE GUTIERREZ | Provider Unknown | | | | | [place] | [phone] | | | | | [address] | | | | | | [phone] | | | +--------+ + + + [...] L into the | | 0 | 06/12/ | | | | lungs continuous. 1L [...] + + + +---------+ + + | [place] Starch POWD | by Does not apply [...] | | | | | [place] [address] | | | | | | [phone] | | | | | | | | +--------+ + + + + | 07/23/ | Office | Pulmonology | Helen Astudillo | | | 2019 | Visit | | MD [address] | | | | | | [address] [place] | | | | | | [place] [address] | | | | | | [phone] | | | | | | | | +--------+ + + + + documented as of this encounter Visit Diagnoses + + | Diagnosis | + + | Diagnosis unknown Other unknown and unspecified cause of morbidity or mortality | + + documented in this encounter"
[~2020-05-02 17:42] MED LIST changes: +PREDNISONE20 MG PO; +RISPERIDONE M-TA1 MG PO; +SYMBICORT 16010.2 GM INH
[2020-05-02] MEDS ORDERED: SINGULAIR10 MG PO (18:06)
[2020-05-02] MEDS ORDERED: SYMBICORT 16010.2 GM INH (18:08)
--- NOTE | 2020-05-03 17:17 | EKG ---
[facility] [address] [facility] [place] [address] Signed Normal sinus rhythm Left axis deviation Nonspecific T wave abnormality Abnormal ECG When compared with ECG of 13-APR-2020 17:51, Vent. rate has decreased BY 84 BPM Questionable change in QRS duration Confirmed by GANGA HOPE MD ([id number]) on 05/03/2020 5:17:18 PM Electronically Signed By: GANGA HOPE MD 05/03/20 1717 PATIENT NAME: KEO BARRAZA VIK Electrocardiogram DATE OF : 61 PHYSICIAN: GANGA HOPE MD REPORT #: [id number] REPORT IS CONFIDENTIAL AND NOT TO BE RELEASED WITHOUT AUTHORIZATION
== END 2020-05-02 22:04 | disposition home or self-care (01) ==
LOC: ED 17:42
DX: R07.81 Pleurodynia (principal); F31.9 Bipolar disorder, unspecified; E03.9 Hypothyroidism, unspecified; E66.9 Obesity, unspecified; I11.0 Hypertensive heart disease with heart failure; I50.9 Heart failure, unspecified; K21.9 Gastro-esophageal reflux disease without esophagitis; J44.9 Chronic obstructive pulmonary disease, unspecified; Z88.8 Allergy status to other drugs, medicaments and biological substances; Z88.2 Allergy status to sulfonamides; Z88.1 Allergy status to other antibiotic agents; Z88.0 Allergy status to penicillin; Z79.899 Other long term (current) drug therapy
CPT/HCPCS: 71045; 80053; 83690; 84484; 85025; 85379; 93005; 93010; 99285-25

== ENCOUNTER 2020-07-11 10:21 | Emergency (ER) | payer OTHER ==
[~2020-07-11] VITALS: Ht 157.5 cm; Wt 91.8 kg
--- OUTSIDE RECORDS SUMMARY | ~2020-07-11 | XMS | Encounter Summary ---
Demographics + + + | Address | [address] | | | [place] [address] | + + + | Home Phone | | + + + | Preferred Language | Unknown | + + + | Marital Status | Single | + + + | Latter Day Affiliation | 1009 | + + + | Race | White | + + + | Ethnic Group | Not or | + + + Author + + + | Author | [facility] | | | and [place] | + + + | Organization | [facility] | | | and [place] | + + + | Address | Unknown | + + + | Phone | Unavailable | + + + Support + + + + + | Name | Relationship | Address | Phone | + + + + + | [employer] | ECON | [id number] | | | | | Unknown | | + + + + + Care Team Providers + +------+ + | Care Air Traffic Coordinator Name | Role | Phone | + +------+ + | Yuni Shrestha | PCP | | + +------+ + Reason for Visit + +--------+ + | Reason | Onset | Comments | | | Date | | + +--------+ + | Procedure | 07/09/ | | | | 2016 | | + +--------+ + Encounter Details +--------+ + + + + | Date | Type | Department | Care Team | Description | +--------+ + + + + | 07/09/ | Telephone | [facility] [place] | [facility], | Procedure | | 2015 | | GASTROENTEROLOGY | BRITTANY Maddox [address] | | | | | [address] [place] | [address] | | | | | [address] [place], [place] | [place], [place] | | | | | [address] | [address] | | | | | [phone] | | | +--------+ + + + [...] + + documented as of this encounter Miscellaneous Notes Telephone Encounter - Katheryn Garber RN - 07/29/2016 10:59 AM PDTPer our anesthesia depar tment this patient will need to have this procedure at a tertiary center because we do not h ave anyone trained in this field. Monica informed. elephone Encounter - Jcarlos, Katheryn Rodriguez RN - 07/27/2016 2:31 PM P DTReceived letter from Dr. Rivera at [facility] indicating patient's nee d for a cardiac trained Anesthesiologist to deliver the IVCS (can not have prop) for egd/col on. She also noted that patient should not miss any of her doses of Adcirca or Letrairis. I will contact the manager auto and anesthesia department to see how we can proceed. Johnie ically signed by Katheryn Garber RN at 07/27/2016 2:37 PM PDTTelephone Encounter - Missy Garber RN - 07/12/2016 2:12 PM PDTSpoke with MARANDA Hillman in Dr. Rivera's office at [facility] in [place]. They have been seeing the patient for moderate pulmonary hypertension for the last 3 years, and patient was referred there by Dr. Lainez. Dr. Rivera has casandra red Margarita to have an egd/colon but wants a cardiac trained Anesthesiologist administering t he IVCS; patient should NOT get propofol. Explained we will have to make a special request f or that since anesthesia is only involved with prop cases but likely could get an exception. Asked her to fax us letter clearing patient for procedure and parameters that need to be me t in order to proceed. Rafy agreed and will fax that letter this week; they do not need t o be contacted again once patient is scheduled. Will wait for letter then discuss case with manager auto, Valeria Pete. Monica informed. Sirena ctronically signed by Katheryn Garber RN at 07/12/2016 2:22 PM PDTTelephone Encounter - Mirela Arthur - 07/09/2016 9:21 AM Magui Rivera's office at [facility] in [place] called and s aid that they are the patient's current pulmonary team, so the patient does not need to esta kimberly at [facility]. They would like to speak with Katheryn about possible future procedures for t he patient, colonoscopy and EGD. Please call their office back at [phone]. Electronical ly signed by Mirela Oliveros at 07/09/2016 9:25 AM PDTdocumented in this encounter Plan of Treatment +--------+ + + + + | Date | Type | Specialty | Care Team | Description | +--------+ + + + + | 07/23/ | Appointment | Pulmonology | Helen Astudillo | | 2019 | | | MD [address] | | | | | | [address] | | | | | | [place] [address] | | | | | | [phone] | | | | | | | | +--------+ + + + + | 07/23/ | Office | Pulmonology | Helen Astudillo | | 2019 | Visit | | MD [address] | | | | | | [address] | | | | | | [place] [address] | | | | | | [phone] | | | | | | | | +--------+ + + + + documented as of this encounter Visit Diagnoses Not on filedocumented in this encounter"
--- OUTSIDE RECORDS SUMMARY | ~2020-07-11 | XMS | Encounter Summary ---
Demographics + + + | Address | [address] | | | [place] [address] | + + + | Home Phone | | + + + | Preferred Language | Unknown | + + + | Marital Status | Single | + + + | Druze Affiliation | NRP | + + + | Race | White | + + + | Ethnic Group | Not or | + + + Author + + + | Author | [facility] | + + + | Organization | [facility] | + + + | Address | Unknown | + + + | Phone | Unavailable | + + + Support + + +---------+ + | Name | Relationship | Address | Phone | + + +---------+ + | Lidia Thibodeaux | ECON | Unknown | | + + +---------+ + Care Team Providers + +------+ + | Care Balance Wheel Motion Inspector Name | Role | Phone | + +------+ + | Yuni Shrestha | PCP | | + +------+ + Encounter Details +--------+ + + + + | Date | Type | Department | Care Team | Description | +--------+ + + + + | 05/17/ | Handle Sewer | Pulmonary & | Oneal Morejon MD | | | 2012 | | Critical Care | [address] | | | | | Medicine at | [facility], | | | | | [facility] | [place] [address] | | | | | [address] | [phone] | | | | | Loop Physician's | | | | | | [place], [address] Floor | | | | | | [place], [place] | | | | | | [address] | | | | | | [phone] | | | +--------+ + + + + Social History + + + +--------+------+ | Tobacco Use | Types | Packs/Day | Years | Date | | | | | Used | | + + + +--------+------+ | Current Every Day | Cigarettes | 1 | 15 | | | Smoker | | | | | + + + +--------+------+ + + | Comments: Has cut back from 1PPD to 1/2PPD over past few weeks. | + + + + +---------+ + | Alcohol Use | Drinks/Week | oz/Week | Comments | + + +---------+ + | Not Asked | | | | + + +---------+ + + + + | Sex Assigned at | Date Recorded | | | | + + + | Not on file | | + + + documented as of this encounter Miscellaneous Notes Telephone Encounter - Lary Rowley - 05/17/2013 9:02 AM PDTErroneous encounter.Electronic ally signed by Lary Rowley at 05/17/2013 9:03 AM PDTdocumented in this encounter Plan of Treatment Not on filedocumented as of this encounter Visit Diagnoses Not on filedocumented in this encounter"
--- OUTSIDE RECORDS SUMMARY | ~2020-07-11 | XMS | Encounter Summary ---
Demographics + + + | Address | [address] | | | [place] [address] | + + + | Home Phone | | + + + | Preferred Language | Unknown | + + + | Marital Status | Single | + + + | Latter-Day Affiliation | 1009 | + + + | Race | White | + + + | Ethnic Group | Not or | + + + Author + + + | Author | [facility] | | | and [place] | + + + | Organization | [facility] | | | and [place] | + + + | Address | Unknown | + + + | Phone | Unavailable | + + + Support + + + + + | Name | Relationship | Address | Phone | + + + + + | [employer] | ECON | [id number] | | | | | Unknown | | + + + + + Care Team Providers + +------+ + | Care Stock Counter Name | Role | Phone | + [...] Description | +--------+---------+ + + + | 07/23/ | Office | [facility] | Jacky Calderon PA | Primary central | | 2016 | Visit | SLEEP DISORDER [address] | [address] | sleep apnea (Primary | | | | [address] [place] | [place], [place] | Dx) | | | | [place] [address] | [address] | | | | | [phone] | | | +--------+---------+ + + + [...] + | Blood Pressure | 102/60 | 07/23/2016 11:00 AM | | | | | PDT | | + + + + + | Pulse | 71 | 07/23/2016 11:00 AM | | | | | PDT | | + + + + + | Temperature | - | - | | + + + + + | Respiratory Rate | 16 | 07/23/2016 11:00 AM | | | | | PDT | | + + + + + | Oxygen Saturation | 93% | 07/23/2016 11:00 AM | | | | | PDT | | + + + + + | Inhaled Oxygen | - | - | | | Concentration | | | | + + + + + | Weight | 92.2 kg (203 lb 4.8 | 07/23/2016 11:00 AM | | | | oz) | PDT | | + + + + + | Height | - | - | | + + + + + | Body Mass Index | 41.06 | 02/03/2016 3:31 PM | | | | | PDT | | + + + + + documented in this encounter Progress Notes Jacky Calderon PA - 07/23/2016 11:11 AM PDT Subjective: Patient ID: Margarita Rowley is a 50 y.o. female. HPI last office visit was: 05/22/2015 date of polysomnography: 03/13/2013 at [facility] AHI: 64.2 O2%: n/a Machine type: Respironics BiPAP Auto with ResMed Quattro FX full face mask obtained from: [employer] in [place] pressure: 16/5 cm with backup rate of 8 bpm and O2 at 5 L/min Nights using BiPAP: 179/180 % of nights >4 hours: 99.4% average usage (all nights): 7:43 average usage (nights used): 7:46 AHI: 9.1 Jessie comes in for BiPAP compliance. She continues to do well with her compliance. She is sleeping very well and does not consider sleeping without her BiPAP and oxygen. She does no t have any questions or concerns. I have discussed the download in detail. This shows that her sleep apnea is controlled, wi th an AHI of 9.1. It also shows that her leaks are controlled. BP 102/60 mmHg | Pulse 71 | Resp 16 | Wt 92.216 kg (203 lb 4.8 oz) | SpO2 93% Review of Systems Objective: Physical Exam Assessment: Problem #1: PRIMARY CENTRAL SLEEP APNEA ([id number]) This is controlled with BiPAP and oxygen at 5 L/min. Her compliance is going very well. Plan: 1. She is to continue with BiPAP indefinitely. 2. She is to touch base with her medical supplier twice per year to ensure that her equipm ent is satisfactory. I will follow up with her in 1 year, sooner prn. Fifteen minutes were spent [id number], with the majority of time spent in counseling. Jacky Calderon PA-C cc: XANDER Garvin documented in this enco unter Plan of [...] | | | | | [place] [address] | | | | | | [phone] | | | | | | | | +--------+ + + + + | 07/23/ | Office | Pulmonology | Helen Astudillo | | | 2019 | Visit | | MD [address] | | | | | | [address] | | | | | | [place] [address] | | | | | | [phone] | | | | | | | | +--------+ + + + + documented as of this encounter Visit Diagnoses + + | Diagnosis | + + | Primary central sleep apnea - Primary | + + documented in this encounter"
--- OUTSIDE RECORDS SUMMARY | ~2020-07-11 | XMS | Encounter Summary ---
Demographics + + + | Address | [address] | | | [place] [address] | + + + | Home Phone | | + + + | Preferred Language | Unknown | + + + | Marital Status | Single | + + + | Protestant Affiliation | 1009 | + + + | Race | White | + + + | Ethnic Group | Not or | + + + Author + + + | Author | [facility] | | | and [place] | + + + | Organization | [facility] | | | and [place] | + + + | Address | Unknown | + + + | Phone | Unavailable | + + + Support + + + + + | Name | Relationship | Address | Phone | + + + + + | [employer] | ECON | [id number] | | | | | Unknown | | + + + + + Care Team Providers + +------+ + | Care Staff Midwife/Apprenticeship Director Name | Role | Phone | + +------+ + PCP | Unavailable | + +------+ + Encounter Details +--------+ + + + + | Date | Type | Department | Care Team | Description | +--------+ + + + + | 02/28/ | Hospital | [facility] | [place] | | | 2011 | Encounter | HOSPITAL GENERIC OP | [address] | | | | | CONVERSION | [address] | | | | | DEPARTMENT [address] | [place] | | | | | [place] | [address] | | | | | [place] | [phone] | | | | | [address] | | | | | | [phone] | | | +--------+ + + + [...] | | | | | [place] [address] | | | | | | [phone] | | | | | | | | +--------+ + + + + | 07/23/ | Office | Pulmonology | Helen Astudillo | | | 2019 | Visit | | MD [address] | | | | | | [address] | | | | | | [place] [address] | | | | | | [phone] | | | | | | | | +--------+ + + + + documented as of this encounter Visit Diagnoses Not on filedocumented in this encounter"
--- OUTSIDE RECORDS SUMMARY | ~2020-07-11 | XMS | Encounter Summary ---
Demographics + + + | Address | [address] | | | [place] [address] | + + + | Home Phone | | + + + | Preferred Language | Unknown | + + + | Marital Status | Single | + + + | Sikhism Affiliation | 1009 | + + + | Race | White | + + + | Ethnic Group | Not or | + + + Author + + + | Author | [facility] | | | and [place] | + + + | Organization | [facility] | | | and [place] | + + + | Address | Unknown | + + + | Phone | Unavailable | + + + Support + + + + + | Name | Relationship | Address | Phone | + + + + + | Projects [employer] | ECON | [id number] | | | | | Unknown | | + + + + + Care Team Providers + +------+ + | Care Cell Tuber Hand Name | Role | Phone | + [...] | Primary | Offenstein, | [address] | | | | | pulmonary | Vera B, | [place], | | | | | hypertension | MD [address] | [place] | | | | | ([facility] | [address] | [address] | | | | | Procedures | [place], | Phone: | | | | | ECHO | [place] [address] | [phone] | | | | | Complete | | Fax: | | | | | APPT | | [phone] | | | | | 03/18/14. | [...] | Primary | Offenstein, | [address] | | | | | pulmonary | Vera B, | [place], | | | | | hypertension | MD [address] | [place] | | | | | ([facility]) | [address] | [address] | | | | | Procedures | [place], | Phone: | | | | | ECHO | [place] [address] | [phone] | | | | | Complete | | Fax: | | | | | APPT | | [phone] | | | | | 03/18/14. | | | | | | | DEFERRED T0 | | | | | | | 03/01/14 | | | +--------+--------+ + + + + Encounter Details +--------+ + + + + | Date | Type | Department | Care Team | Description | +--------+ + + + + | 03/12/ | Hospital | [facility] | Saharaenstein, | Primary pulmonary | | 2013 | Encounter | [facility] [address] | Vera Farrar MD | hypertension | | | | [address] [place] | [place], | | | | | [place] [address] | Technologist | | | | | [phone] | | | +--------+ + + + [...] | | | | | | ([facility]) | | | | | | + [...] + + + +---------+ + + | [place] Starch POWD | by Does not apply [...] + + + +---------+ + + | [place]-3 Fatty | Take by mouth. | | [...] 08/06/20 | | | Therapy Supplies | [facility]'s office | | | 13 | [...] documented in this encounter Plan of Treatment +--------+ [...] | | | | | [place] [address] | | | | | | [phone] | | | | | | | | +--------+ + + + + | 07/23/ | Office | Pulmonology | Helen Astudillo | | | 2019 | Visit | | MD [address] | | | | | | [address] [place] | | | | | | [place] [address] | | | | | | [phone] | | | | | | | [...] Performed At | + + + | [facility] ECHOCARD[facility]GRAM REPORT | [facility] | | STUDY DATE: 03/12/2014 PATIENT NAME: Margarita Rowley : | [facility] | | 1965 PCP: Gela Trimble CLINICAL | [facility] | | HISTORY/DIAGNOSIS: PULM HTN A [...] | | S. Ananth Salguero MD PhD [facility] 03/12/2014 8:38 | | | Molding Associate: Hung Caro, RDCS, RVT, RDMS | | + + + + + | Procedure Note | + + | Roberto Salguero MD - 03/12/2014 6:[address] [facility] | | CENTERECHOCARDIOGRAM REPORTSTUDY DATE: 03/12/2014PATIENT NAME: Margarita MooreB: | | 1965MRN: [id number]: Gela DayINICAL HISTORY/DIAGNOSIS: PULM HTNA | | [...] | mmHgLA volume: 34 mLLA index: 18 mL/u5Lpprun Inflow DT: 290 msIVRT: 117 msValsalva: | | YES, TO NO EFFECTPWDTI S wave: 12.0 cm/sPWDTI E wave: 15.5 cm/sPWDTI A wave: 24.1 | | cm/sE/A Ratio: 0.643E/E Ratio: Signed by: Artie Salguero MD PhD FACC 03/12/2014 | | 8:38 Molding Associate: Hung Caro, RDCS, RVT, RDMS | |Mitral [...] | | | | | |Signed by: Atrie Salguero MD PhD FACC | | 03/12/2014 8:38 | | | | | |Molding Associate: Hung Caro, RDCS, RVT, RDMS | + + + + + + + | Performing | Address | City/State/Zipcode | Phone Number | | Organization | | | | + + + + + | [facility] | [address] | [place] | [phone] | | [facility] | | [address] | | | - IMAGING | | | | + + + + + documented in this encounter Visit Diagnoses + + | Diagnosis | + + | Primary pulmonary hypertension | + + documented in this encounter"
--- OUTSIDE RECORDS SUMMARY | ~2020-07-11 | XMS | Encounter Summary ---
Demographics + + + | Address | [address] | | | [place] [address] | + + + | Home Phone | | + + + | Preferred Language | Unknown | + + + | Marital Status | Single | + + + | Methodist Affiliation | 1009 | + + + | Race | White | + + + | Ethnic Group | Not or | + + + Author + + + | Author | [facility] | | | and [place] | + + + | Organization | [facility] | | | and [place] | + + + | Address | Unknown | + + + | Phone | Unavailable | + + + Support + + + + + | Name | Relationship | Address | Phone | + + + + + | Projects Horizon | ECON | [id number] | | | | | Unknown | | + + + + + Care Team Providers + +------+ + | Care Drafting Instructor Name | Role | Phone | + +------+ + PCP | Unavailable | + +------+ + Encounter Details +--------+ + + + + | Date | Type | Department | Care Team | Description | +--------+ + + + + | 01/10/ | Hospital | [facility] | Caesar Buitrago | | | 2008 | Encounter | HOSPITAL MED SURG | [address] | | | | | [address] [place] | [facility], | | | | | [place] | [place] [address] | | | | | [address] | [phone] | | | | | [phone] | | | +--------+ + + + [...] | | | | | [place] [address] | | | | | | [phone] | | | | | | | | +--------+ + + + + | 07/23/ | Office | Pulmonology | Helen Astudillo | | | 2019 | Visit | | MD [address] | | | | | | [address] | | | | | | [place] [address] | | | | | | [phone] | | | | | | | | +--------+ + + + + documented as of this encounter Visit Diagnoses Not on filedocumented in this encounter"
--- OUTSIDE RECORDS SUMMARY | ~2020-07-11 | XMS | Encounter Summary ---
Demographics + + + | Address | [address] | | | [place] [address] | + + + | Home Phone | | + + + | Preferred Language | Unknown | + + + | Marital Status | Single | + + + | Baptist Affiliation | 1009 | + + + | Race | White | + + + | Ethnic Group | Not or | + + + Author + + + | Author | [facility] | | | and [place] | + + + | Organization | [facility] | | | and [place] | + + + | Address | Unknown | + + + | Phone | Unavailable | + + + Support + + + + + | Name | Relationship | Address | Phone | + + + + + | Projects [employer] | ECON | [id number] | | | | | Unknown | | + + + + + Care Team Providers + +------+ + | Care Rubbing Bed Operator Name | Role | Phone | + +------+ + | Gela Trimble NP | PCP | | + +------+ + Encounter Details +--------+ + + + + | Date | Type | Department | Care Team | Description | +--------+ + + + + | 09/17/ | Orders Only | [facility] | Tarah Nino, | COPD (chronic | | 2013 | | PULMONARY [address] | RN | obstructive | | | | [place], | | pulmonary disease) | | | | [place] [address] | | ([facility]) | | | | [phone] | | | +--------+ + + + [...] | | | | | [place] [address] | | | | | | [phone] | | | | | | | | +--------+ + + + + | 07/23/ | Office | Pulmonology | FilibertojinaHelen | | | 2019 | Visit | | MD Vikash [address] | | | | | | [address] [place] | | | | | | [place] [address] | | | | | | [phone] | | | | | | | | +--------+ + + + + documented as of this encounter Visit Diagnoses + + | Diagnosis | + + | COPD (chronic obstructive pulmonary disease) (HCC) Chronic airway obstruction, not | | elsewhere classified | + + documented in this encounter"
--- OUTSIDE RECORDS SUMMARY | ~2020-07-11 | XMS | Encounter Summary ---
Demographics + + + | Address | [address] | | | [place] [address] | + + + | Home Phone | | + + + | Preferred Language | Unknown | + + + | Marital Status | Single | + + + | Zoroastrianism Affiliation | 1009 | + + + [...] + | Projects [employer] | ECON | [id number] | | | | | Unknown | | + + + + + Care Team Providers + +------+ + | Care Pensions Retirement Plan Specialist Name | Role | Phone | + +------+ + | Yuni Shrestha | PCP | | + +------+ + Encounter Details +--------+ + + + + | Date | Type | Department | Care Team | Description | +--------+ + + + + | 02/01/ | Orders Only | [facility] [place] | Scout Arthur, | Lung nodule (Primary | | 2017 | | PULMONARY [address] | [address] | Dx) | | | | [place], | [place] [address] | | | | | [place] [address] | [phone] | | | | | [phone] | | | +--------+ + + + [...] | 07/23/ | Appointment | Pulmonology | Baudilio Helen | | | 2019 | | | MD [address] | | | | | | [address] [place] | | | | | | [place] [address] | | | | | | [phone] | | | | | | | | +--------+ + + + + | 07/23/ | Office | Pulmonology | Baudilio Helen | | | 2019 | Visit | | MD Joey [address] | | | | | | [address] [place] | | | | | | [place] [address] | | | | | | [phone] | | | | | | | | +--------+ + + + + documented as of this encounter Results XR Chest PA and Lateral (02/01/2017 11:13 AM PDT) + + | Specimen | + + | | + + + + + | Narrative | Performed At | + + + | CLINICAL INFORMATION: Nodular density, solitary pulmonary nodule | [facility] | | COMPARISON: 07/10/2015. FINDINGS: Frontal and lateral views of | [facility] | | the chest. Lungs: No focal [...] [address] | [place] | [phone] | | [facility] | | [address] | | | - IMAGING | | | | + + + + + documented in this encounter Visit Diagnoses + + | Diagnosis | + + | Lung nodule - Primary Solitary pulmonary nodule | + + documented in this encounter"
--- OUTSIDE RECORDS SUMMARY | ~2020-07-11 | XMS | Encounter Summary ---
Demographics + + + | Address | [address] | | | [place] [address] | + + + | Home Phone [...] Author + + + | Author | [facility] | | | and [place] | + + + | Organization | [facility] | | | and [place] | + + + | Address | Unknown | + + + | Phone | Unavailable | + + + Support + + + + + | Name | Relationship | Address | Phone | + + + + + | Projects [employer] | ECON | [id number] | | | | | Unknown | | + + + + + Care Team Providers + +------+ + | Care Director Paid Media Name | Role | Phone | + +------+ + | Shanice Huang MD | PCP | | + +------+ + Reason for Visit Auth/Cert +--------+--------+ + + + + | Status | Reason | Specialty | Diagnoses / | Referred By | Referred To | | | | | Procedures | Contact | Contact | +--------+--------+ + + + + | | | | Diagnoses | | | | | | | Combined | | | | | | | forms of | | | | | | | age-related | | | | | | | cataract, | | | | | | | right eye | | | | | | | Procedures | | | | | | | FL XCAPSL | | | | | | | CTRC RMVL | | | | | | | INSJ IO LENS | | | | | | | PROSTH W/O | | | | | | | ECP RIGHT | | | | | | | EXTRACTION | | | | | | | CATARACT W/ | | | | | | | OR W/O LENS | | | | | | | IMPLANT | | | +--------+--------+ + + + + Encounter Details +--------+ + + + + | Date | Type | Department | Care Team | Description | +--------+ + + + + | 05/22/ | Hospital | [facility] | Angel Garcia | | | 2019 | Encounter | MED CTR OR INTRA OP | MD [address] | | | | | [address] | [place] | | | | | [place] | [place] [address] | | | | | [address] | [phone] | | | | | [phone] | | | +--------+ + + + [...] + + + | Blood Pressure | 146/74 | 05/22/2020 3:30 PM | | | | | PDT | | + + + + + | Pulse | 69 | 05/22/2020 3:30 PM | | | | | PDT | | + + + + + | Temperature | 36.3 C (97.3 F) | 05/22/2020 3:14 PM | | | | | PDT | | + + + + + | Respiratory Rate | 20 | 05/22/2020 3:14 PM | | | | | PDT | | + + + + + | Oxygen Saturation | 93% | 05/22/2020 3:30 PM | | | | | PDT | | + + + + + | Inhaled Oxygen | - | - | | | Concentration | | | | + + + + + | Weight | 89.1 kg (196 lb 6.9 | 05/22/2020 1:18 PM | | | | oz) | PDT | | + + + + + | Height | 154.9 cm (5' 1") | 05/22/2020 1:18 PM | | | | | PDT | | + + + + + | Body Mass Index | 37.12 | 05/22/2020 1:18 PM | | | | | PDT | | + + + + + documented in this encounter Discharge Instructions Instructions Angel Garcia MD - 05/22/2020FOLLOWING SURGERY: Wear the patch and shield until you get home or until your first post-op appointment, if same day. You may then discard the patch, but continue to wear the eye shield as noted rita garza Do not drive for at least 24 hours (longer if vision isn't clear enough to be safe) If prescribed the following eyedrops to use after surgery, then use as follows: Prednisolone acetate 1% - Shake well before using. Place 1 drop in your surgery ey e 4 times daily and continue for 1 month after surgery. Ofloxacin 0.3% - Place 1 drop in your surgery eye 4 times daily and continue for 1 week after surgery. Close your eye for 3-5 minutes after each eye drop. If your surgery eye has a dry, irritated, or "foreign body" sensation, you may use cold compresses or preservative free artificial tears (in individual vials) as needed. Drink water to stay well-hydrated and to promote healing. Most people need 8 glasses of water daily. Use your preferred non-prescription pain medicine as needed for mild discomfort. You will have appointments with your eye doctor as scheduled in future weeks/months. Jojo ng any eye drops you are taking to your first post-op appointment. THE FIRST DAYS AFTER SURGERY: The first few days are the most important after eye surgery t o be sure the eye heals well. Listed below are some things you should do or avoid doing: You may bend over, sleep on either side, read, go out to dinner, and resume most of your normal activities. Walking and gentle exercises are OK. Avoid strenuous activity for the first 3 days. Keep your eye clean with gentle lid scrubs and avoid wearing makeup for 3 days. Wear the eye shield for the first 3-4 nights to keep from bumping the eye while you are sleeping. Do not rub your eye. If you have an urge to rub your eye, wear the eye shield and jonatan nue using it when sleeping for even the first week after surgery. Avoid dry, mt or dirty environments for at least 3 days. You may shower, but keep you eye dry for 3 days. Avoid dunking your head under water. Avoid splashing your face or dunking your head under water for 3 days. You may shower, k eeping your eye dry. No swimming, water sports, Jacuzzi, spa, or pool for 1 week. EXPECTATIONS: You may experience strange sensations after surgery, such as numbness, halos around lights, blurred and/or double vision. These usually resolve in 2-6 hours. Your visi on will improve over time as your eye heals, but may fluctuate over the first few weeks. Re dness will usually be gone within a few weeks. A mild dry eye sensation may persist for mehrdad e months. IMPORTANT! If you have the following symptoms, immediately call your eye doctor or [facility] at (dial "9" after hours or on weekends): Bleeding or discharge from the eye. Vision suddenly becomes worse. Huge increase in floaters. Flashing lights or a curtain over part of or all of your vision. Severe pain not relieved by the pain reliever you've been instructed to take. Nausea, vomiting, chills, or fever over 100.4. documented in this encounter Medications at Time of Discharge [...] + + | furosemide (LASIX) | Take 40 mg by mouth | | 0 | | | | 40 mg tablet | 2 times daily. | | | | | + + + +---------+ + + | gabapentin | Take 600 mg by mouth | | 0 | | | | (NEURONTIN) 300 mg | 3 times daily. | | | | | | capsule | | | | | | + + + +---------+ + + | guaiFENesin | Take 200 mg by mouth | | 0 | | | | (ROBAFEN) 100 mg/5 | 4 times daily as | | | | | | mL syrup | needed for Cough. | | | | | + + + +---------+ + + | | Take 10 mLs by mouth | | 0 | | | | guaiFENesin-dextrome | as needed | | | | | | thorphan (ROBITUSSIN | | | | | | | DM) 100-10 mg/5 mL | | | | | | | syrup | | | | | | + + + +---------+ + + | levothyroxine | Take 125 mcg by | | 0 | | | | (SYNTHROID) 125 mcg | mouth every morning | | | | | | tablet | (before breakfast). | | | | | + + + +---------+ + + | Magnesium | Take 30 mLs by mouth | | 0 | | | | Hydroxide (MILK OF | as needed. | | | | | | MAGNESIA PO) | | | | | | + + + +---------+ + + | montelukast | Take 10 mg by mouth | | 0 | | | | (SINGULAIR) 10 mg | Daily | | | | | | tablet | | | | | | + + + +---------+ + + | NYSTATIN [id number] | as needed | | 0 | 02/28/20 | | | UNIT/GM powder | | | | 20 | | + + + +---------+ + + | omeprazole | Take 1 capsule by | 60 | 11 | 06/05/20 | | | (PRILOSEC) 20 mg | mouth 2 times daily. | capsule | | 18 | | | capsule | | | [...] + + | PARoxetine (PAXIL) | Take 40 mg by mouth | | 0 | | | | 40 MG tablet | every morning. | | | | | + + + +---------+ + + | potassium chloride | Take 40 mEq by mouth | | 0 | | | | (K-DUR) 20 mEq | Daily. | | | | | | tablet | | | | | | + + + +---------+ + + | povidone-iodine 10 | Apply topically | | 0 | | | | % swab | Every 30 days Swab | | | | | | | around gums . | | | | | + + + +---------+ + + | Respiratory | Replacement BiPAP | 1 each | 0 | 02/01/20 | | | Therapy Supplies | machine and | | | 19 | | | MISCIndications: | supplies. Mask, head | | | | | | Obstructive sleep | gear, chinstrap, | | | | | | apnea (adult) | hoses, humidifier | | | | | | (pediatric) [...] 6 L. | | | | | + + [...] + + + +---------+ + + | selexipag | Take 1 each by mouth | | 0 | | | | (UPTRAVI) 200 & 800 | 2 times daily. | | | | | | mcg tablet | | | | | | | (titration pack) | | | | | | + + + +---------+ + + | SF 5000 PLUS 1.1 % | Place 1 Application | | 3 | 12/06/19 | | | CREA | onto teeth 2 times | | | 19 | | | | daily. | | | | | [...] + + + +---------+ + + | SYMBICORT 160-4.5 | Inhale 2 puffs into | | 4 | 01/17/20 | | | MCG/ACT inhaler | the lungs 2 times | | | 19 | | | | daily. | | | | | [...] + + documented as of this encounter H&P Notes Angel Garcia MD - 05/22/2020 2:10 PM PDTSURGICAL INTERIM HISTORY & PHYSICAL UPDA TE Pt. Name/Age/: Margarita Rowley 54 y.o. 1965 Date of admission: 05/22/2020 The current H&P was reviewed. The patient was reexamined. Re-evaluation of the patient co nfirms the necessity for the scheduled procedure. No change has occurred in the patient s condition since the H&P was completed less than 30 days ago. VERIFICATION OF CONSENT (PARQ) The patient was counseled regarding the procedure, its indications, risks, potential compli cations and alternatives. Any questions were answered. Consent was obtained. 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 Two side ports were made and the anterior chamber was filled with viscoelastic. A keratome was used to create t he main wound temporally. Utrata forceps were used for a capsulorhexis. After hydrodissectio n, the lens was phacoemulsified and residual cortex was aspirated. The artificial lens was p laced under viscoelastic which was then removed. The wounds were checked and found to be gretta ertight. Vigamox 0.1cc was placed in the anterior chamber. Triamcinolone 3mg was placed in the subconjunctival space. Pilocarpine 1% drops were placed on the eye. A patch and shield w ere placed over the eye. Postoperative Plan: The patient was sent to recovery in good condition. Complications: none Estimated Blood Loss: none documented in t his encounter Plan of Treatment +--------+ + + + + | Date | Type | Specialty | Care Team | Description | +--------+ + + + + | 07/23/ | Appointment | Pulmonology | Helen Astudillo | | 2019 | | | MD Vikash [address] | | | | | | [address] [facility] | | | | | | [place] [address] | | | | | | [phone] | | | | | | | | +--------+ + + + + | 07/23/ | Office | Pulmonology | Baudilio Helen | | | 2019 | Visit | | MD Vikash [address] | | | | | | [address] [place] | | | | | | [place] [address] | | | | | | [phone] | | | | | | | | +--------+ + + + + documented as of this encounter Procedures + +--------+ + + + | Procedure Name | Priori | Date/Time | Associated Diagnosis | Comments | | | ty | | | | + +--------+ + + + | EXTRACTION CATARACT | | 05/22/2020 | Combined forms of | | | W/ OR W/O LENS | | 2:43 PM | age-related | | | IMPLANT | | PDT | cataract, right eye | | + +--------+ + + + | PATHOLOGY - EXTERNAL | | 05/22/2020 | | Results for this | | SCAN | | 12:00 AM | | procedure are in the | | | | PDT | | results section. | + +--------+ + + + | PATHOLOGY - EXTERNAL | | 05/19/2020 | | Results for this | | SCAN | | 12:00 AM | | procedure are in the | | | | PDT | | results section. | + +--------+ + + + documented in this encounter Results PATHOLOGY - EXTERNAL SCAN (05/22/2020 12:00 AM PDT) + + + | Narrative | Performed At | + + + | Ordered by an | | | unspecified provider. | | + + + PATHOLOGY - EXTERNAL SCAN (05/19/2020 12:00 AM PDT) + + + | Narrative | Performed At | + + + | Ordered by an | | | unspecified provider. | | + + + documented in this encounter Visit Diagnoses Not on filedocumented in this encounter Administered Medications + +--------+---------+------+------+------+ | Medication Order | MAR | Action | Dose | Rate | Site | | | Action | Date | | | | + +--------+---------+------+------+------+ + +---+ | albuterol 2.5 mg/3 mL nebulizer | | | solution 2.5 mg 2.5 mg, | | | Nebulization, ONCE PRN, Wheezing, | | | Starting [facility] 05/22/20 at 1521, | | | For 1 dose, Notify anesthesia if | | | patient is wheezing and does not | | | have a history of asthma or COPD | | | or current smoking., | | | Recovery/Phase I | | + +---+ | | | + +---+ | albuterol-ipratropium 2.5-0.5 | | | mg/3 mL nebulizer solution 3 mL | | | 3 mL, Nebulization, ONCE PRN, | | | Wheezing, Starting [facility] 05/22/20 at | | | 1324, For 1 dose, Pre-op | | + +---+ | | | + +---+ | dextrose 50% injection 12.5-25 | | | g 12.5-25 g, Intravenous, EVERY | | | 15 MIN PRN, Low Blood Sugar, Give | | | 12.5g (25 mL) IV if blood | | | glucose 50-69 mg/dL. Give 25g | | | (50 mL) IV if blood glucose < 50, | | | Starting [facility] 05/22/20 at 1324, | | | Repeat in 15 min if blood glucose | | | remains < 70 mg/dL. Repeat | | | blood glucose in 30 min once | | | blood glucose > 70., Pre-op | | + +---+ | | | + +---+ | dextrose 50% injection 12.5-25 | | | g 12.5-25 g, Intravenous, EVERY | | | 15 MIN PRN, Low Blood Sugar, For | | | hypoglycemia. Give 12.5g (25ml) | | | IV if blood glucose 50-69 | | | mg/dL. Give 25g (50ml) IV if | | | blood glucose < 50, Starting [facility] | | | 05/22/20 at 1521, Give over 2 min. | | | Repeat in 15 min if blood | | | glucose remains < 70 mg/dL. | | | Repeat blood glucose in 30 min | | | once blood glucose > 70., | | | Recovery/Phase I | | + +---+ | | | + +---+ + +---------+ +---+ +---+ | lactated ringers (LR) infusion | New Bag | 05/22/20 | | 10 mL/hr | | | at 10-100 mL/hr, Intravenous, | | 20 1:53 | | | | | CONTINUOUS, Starting [facility] 05/22/20 | | PM PDT | | | | | at 1345, TKO., Pre-op | | | | | | + +---------+ +---+ +---+ +---+---+ | | | +---+---+ + +-------+ +--------+---+---+ | lidocaine (AKTEN) 3.5% | Given | 05/22/20 | 1 drop | | | | ophthalmic gel 1 drop 1 drop, | | 20 1:53 | | | | | Right Eye, Prior to Incision, | | PM PDT | | | | | Starting [facility] 05/22/20 at 1324, For | | | | | | | 2 doses, Begin after | | | | | | | proparacaine. Begin 10 minutes | | | | | | | prior to leaving SDS for | | | | | | | operating room. Repeat jelly just | | | | | | | prior to leaving SDS and Q10 | | | | | | | minutes until in the operating | | | | | | | room. Keep eye closed after | | | | | | | placing medication., Pre-op | | | | | | + +-------+ +--------+---+---+ +-------+ +--------+---+---+ | Given | 05/22/20 | 1 drop | | | | | 20 1:41 | | | | | | PM PDT | | | | +-------+ +--------+---+---+ + +---+ | | | + +---+ | ondansetron (ZOFRAN) injection | | | 4 mg 4 mg, Intravenous, EVERY 4 | | | HOURS PRN, Nausea, Vomiting, | | | Starting [facility] 05/22/20 at 1521, | | | Recovery/Phase I | | + +---+ | | | + +---+ + +-------+ +--------+---+---+ | phenylephrine (JETT-SYNEPHRINE) | Given | 05/22/20 | 1 drop | | | | 2.5% ophthalmic solution 1 drop | | 20 1:41 | | | | | 1 drop, Right Eye, Prior to | | PM PDT | | | | | Incision, Starting [facility] 05/22/20 at | | | | | | | 1324, For 3 doses, Begin after | | | | | | | proparacaine. 1 drop every 10 | | | | | | | minutes for 3 doses. (May | | | | | | | alternate every 5 minutes with | | | | | | | tropicamide) Remind patient to | | | | | | | keep eye closed after placing | | | | | | | each drop., Pre-op | | | | | | + +-------+ +--------+---+---+ +-------+ +--------+---+---+ | Given | 05/22/20 | 1 drop | | | | | 20 1:36 | | | | | | PM PDT | | | | +-------+ +--------+---+---+ | Given | 05/22/20 | 1 drop | | | | | 20 1:32 | | | | | | PM PDT | | | | +-------+ +--------+---+---+ +---+---+ | | | +---+---+ + +-------+ +--------+---+---+ | proparacaine (ALCAINE) 0.5% | Given | 05/22/20 | 1 drop | | | | ophthalmic solution 1 drop 1 | | 20 1:32 | | | | | drop, Right Eye, Prior to | | PM PDT | | | | | Incision, Starting [facility] 05/22/20 at | | | | | | | 1324, For 1 dose, After placing | | | | | | | anesthetic, keep eye closed | | | | | | | except for when placing | | | | | | | additional medications. All other | | | | | | | drops/gel should follow this | | | | | | | drop., Pre-op | | | | | | + +-------+ +--------+---+---+ +---+---+ | | | +---+---+ + +-------+ +--------+---+---+ | tropicamide (MYDRIACYL) 1% | Given | 05/22/20 | 1 drop | | | | ophthalmic solution 1 drop 1 | | 20 1:41 | | | | | drop, Right Eye, Prior to | | PM PDT | | | | | Incision, Starting [facility] 05/22/20 at | | | | | | | 1324, For 3 doses, Begin after | | | | | | | proparacaine. 1 drop every 10 | | | | | | | minutes for 3 doses. (May | | | | | | | alternate every 5 minutes with | | | | | | | phenylephrine) Remind patient to | | | | | | | keep eye closed after placing | | | | | | | each drop., Pre-op | | | | | | + +-------+ +--------+---+---+ +-------+ +--------+---+---+ | Given | 05/22/20 | 1 drop | | | | | 20 1:36 | | | | | | PM PDT | | | | +-------+ +--------+---+---+ | Given | 05/22/20 | 1 drop | | | | | 20 1:32 | | | | | | PM PDT | | | | +-------+ +--------+---+---+ +---+---+ | | | +---+---+ documented in this encounter
--- OUTSIDE RECORDS SUMMARY | ~2020-07-11 | XMS | Encounter Summary ---
Demographics + + + | Address | [address] | | | [place] [address] | + + + | Home Phone | | + + + | Preferred Language | Unknown | + + + | Marital Status | Single | + + + | Yarsanism Affiliation | NRP | + + + | Race | White | + + + | Ethnic Group | Not or | + + + Author + + + | Author | [facility] | + + + | Organization | [facility] | + + + | Address | Unknown | + + + | Phone | Unavailable | + + + Support + + +---------+ + | Name | Relationship | Address | Phone | + + +---------+ + | Lidia Thibodeaux | ECON | Unknown | | + + +---------+ + Care Team Providers + +------+ + | Care Bridal Service Sales And Management Name | Role | Phone | + +------+ + | Gela Trimble NP | PCP | | + +------+ + Encounter Details +--------+ + + + + | Date | Type | Department | Care Team | Description | +--------+ + + + + | 03/27/ | Document-Sc | UNKNOWN DEPARTMENT | Unknown . | | | 2012 | anned | [address] | | | | | | [address] | | | | | | [place], [place] | | | | | | [address] | | | +--------+ + + + [...] + + documented as of this encounter Procedure Xuan Grewal - 05/06/2014 7:51 AM PDTAssociated Order(s): ORDERS OTHERElectronically sig ebenezer by Faculty Other at 05/06/2014 7:51 AM PDTdocumented in this encounter Plan of Treatment Not on filedocumented as of this encounter Procedures + +--------+ + + + | Procedure Name | Priori | Date/Time | Associated Diagnosis | Comments | | | ty | | | | + +--------+ + + + | ORDERS OTHER | | 03/27/2013 | | Results for this | | | | 12:00 AM | | procedure are in the | | | | PDT | | results section. | + +--------+ + + + documented in this encounter Results ORDERS OTHER (03/27/2013 12:00 AM PDT) + + + | Narrative | Performed At | + + + | | | | | | + + + + + | Procedure Note | + + | Xuan Palumbo - 05/06/2014 7:51 AM PDT | + + documented in this encounter Visit Diagnoses Not on filedocumented in this encounter"
--- OUTSIDE RECORDS SUMMARY | ~2020-07-11 | XMS | Encounter Summary ---
Demographics + + + | Address | [address] | | | [place] [address] | + + + | Home Phone [...] + + + | Author | [facility] | | | and [place] | + + + | Organization | [facility] | | | and [place] | + + + | Address | Unknown | + + + | Phone | Unavailable | + + + Support + + + + + | Name | Relationship | Address | Phone | + + + + + | [employer] | ECON | [phone] | | | | | Unknown | | + + + + + Care Team Providers + +------+ + | Care Trackless Trolley Driver Name | Role | Phone | + +------+ + | No, Physician | PCP | Unavailable | + +------+ + Reason for Visit +--------+--------+ + | Reason | Onset | Comments | | | Date | | +--------+--------+ + | Other | 04/23/ | | | | 2014 | | +--------+--------+ + Encounter Details +--------+ + + + + | Date | Type | Department | Care Team | Description | +--------+ + + + + | 04/23/ | Telephone | [facility] [place] | [place], | Other | | 2015 | | PULMONARY [address] | Vera Farrar MD | | | | | [place], | | | | | | [place] [address] | | | | | | [phone] | | | +--------+ + + + [...] this encounter Miscellaneous Notes Telephone Encounter - Alysa Shrestha RN - 04/23/2015 11:02 AM [facility] was notified that Margarita needs to have a repeat Echo in Jul 2015. She will note that for the nurse. Also she was notified that Margarita has a follow up appt scheduled f or 06/12/15. domercy gillis in this encounter Plan of Treatment +--------+ + + + + | Date | Type | Specialty | Care Team | Description | +--------+ + + + + | 07/23/ | Appointment | Pulmonology | Helen Astudillo | | 2019 | | | MD [address] | | | | | | [address] [place] | | | | | | [place] [address] | | | | | | [phone] | | | | | | | | +--------+ + + + + | 07/23/ | Office | Pulmonology | Helen Astudillo | | 2019 | Visit | | MD Vikash [address] | | | | | | [address] | | | | | | [place] [address] | | | | | | [phone] | | | | | | | | +--------+ + + + + documented as of this encounter Visit Diagnoses Not on filedocumented in this encounter"
--- OUTSIDE RECORDS SUMMARY | ~2020-07-11 | XMS | Encounter Summary ---
Demographics + + + | Address | [address] | | | [place] [address] | + + + | Home Phone | | + + + | Preferred Language | Unknown | + + + | Marital Status | Single | + + + | Alevism Affiliation | 1009 | + + + | Race | White | + + + | Ethnic Group | Not or | + + + Author + + + | Author | [facility] | | | and [place] | + + + | Organization | [facility] | | | and [place] | + + + | Address | Unknown | + + + | Phone | Unavailable | + + + Support + + + + + | Name | Relationship | Address | Phone | + + + + + | [employer] | ECON | [phone] | | | | | Unknown | | + + + + + Care Team Providers + +------+ + | Care Nuclear Worker Technician Name | Role | Phone | + +------+ + | Gela Trimble NP | PCP | | + +------+ + Encounter Details +--------+ + + + + | Date | Type | Department | Care Team | Description | +--------+ + + + + | 12/17/ | [facility] | [facility] | Fatou, | | | 2013 | Encounter | MED CTR GENERIC OP | Vera Farrar MD | | | | | CONV DEPT [address] | | | | | | [place], | | | | | | [place] [address] | | | | | | [phone] | | | +--------+ + + + [...] | | | | | | | ([facility]) | | | | | | + [...] + + +---------+ + + | [place] Starch POWD | by Does not apply [...] + + + +---------+ + + | [place]-3 Fatty | Take by mouth. | | [...] 08/06/20 | | | Therapy Supplies | [facility]'s office | | | 13 | 8 [...] | | | | | [place] [address] | | | | | | [phone] | | | | | | | | +--------+ + + + + | 07/23/ | Office | Pulmonology | Helen Astudillo | | | 2020 | Visit | | MD Vikash [address] | | | | | | [address] | | | | | | [place] [address] | | | | | | [phone] | | | | | | | | +--------+ + + + + documented as of this encounter Visit Diagnoses Not on filedocumented in this encounter"
--- OUTSIDE RECORDS SUMMARY | ~2020-07-11 | XMS | Encounter Summary ---
Demographics + + + | Address | [address] | | | [place] [address] | + + + | Home Phone [...] + + + | Organization | [facility] | | | and [place] | + + + | Address | Unknown | + + + | Phone | Unavailable | + + + Support + + + + + | Name | Relationship | Address | Phone | + + + + + | [employer] | ECON | [phone] | | | | | Unknown | | + + + + + Care Team Providers + +------+ + | Care Field Crop Farm Worker Name | Role | Phone | + +------+ + | Gela Trimble NP | PCP | | + +------+ + Reason for Visit +--------+--------+ + | Reason | Onset | Comments | | | Date | | +--------+--------+ + | Other | 09/06/ | | | | 2012 | | +--------+--------+ + Encounter Details +--------+ + + + + | Date | Type | Department | Care Team | Description | +--------+ + + + + | 09/06/ | Telephone | [facility] [place] | [place], | Other | | 2012 | | PULMONARY [address] | Vera Farrar MD | | | | | [place], | | | | | | [place] [address] | | | | | | [phone] | | | +--------+ + + + [...] this encounter Miscellaneous Notes Telephone Encounter - Vera Lainez MD - 09/06/2013 1:01 PM PSTPhone call placed last week to Dr. Rivera's office to clarify medications as she was seemingly not aware of th e fact that the patient was on Adcirca when starting the Letairis. I spoke with her nurse ab out stopping the Adcrica. I was told that Dr. Rivera would call me back last Tuesday as she w as at a conference. No call back received as of yet. Letter received today from the home wanting an order to stop the Adcirca as they will not s tart the Letairis until they receive clarification. Given somnolence seen on exam, I am stopping the Adcrica. She is also being sent to [facility] to work on mask fitting with her care providers. Cc: Lashae Rivera MD, [employer] documented in this encounter Plan of Treatment [...] | | | | | [place] [address] | | | | | | [phone] | | | | | | | | +--------+ + + + + | 07/23/ | Office | Pulmonology | Helen Astudillo | | | 2019 | Visit | | MD [address] | | | | | | [address] | | | | | | [place] [address] | | | | | | [phone] | | | | | | | | +--------+ + + + + documented as of this encounter Visit Diagnoses Not on filedocumented in this encounter"
--- OUTSIDE RECORDS SUMMARY | ~2020-07-11 | XMS | Encounter Summary ---
Demographics + + + | Address | [address] | | | [place] [address] | + + + | Home Phone [...] Author + + + | Author | [facility] | | | and [place] | + + + | Organization | [facility] | | | and [place] | + + + | Address | Unknown | + + + | Phone | Unavailable | + + + Support + + + + + | Name | Relationship | Address | Phone | + + + + + | [employer] | ECON | [phone] | | | | | Unknown | | + + + + + Care Team Providers + +------+ + | Care Die Cleaner Name | Role | Phone | + +------+ + PCP | Unavailable | + +------+ + Encounter Details +--------+ + + + + | Date | Type | Department | Care Team | Description | +--------+ + + + + | 11/04/ | Hospital | [facility] | Shady Mcdonald | | | 2008 | Encounter | HOSPITAL XRAY [address] | MD [address] | | | | | [address] | [facility] [place] | | | | | [place] | [address] | | | | | [address] | [phone] | | | | | [phone] | | | +--------+ + + + [...] [address] | | | | | | [place] [address] | | | | | | [phone] | | | | | | | | +--------+ + + + + | 07/23/ | Office | Pulmonology | Helen Astudillo | | | 2019 | Visit | | MD [address] | | | | | | [address] | | | | | | [place] [address] | | | | | | [phone] | | | | | | | | +--------+ + + + + documented as of this encounter Visit Diagnoses Not on filedocumented in this encounter"
--- OUTSIDE RECORDS SUMMARY | ~2020-07-11 | XMS | Encounter Summary ---
Demographics + + + | Address | [address] | | | [place] [address] | + + + | Home Phone | | + + + | Preferred Language | Unknown | + + + | Marital Status | Single | + + + | Bahai Affiliation | 1009 | + + + | Race | White | + + + | Ethnic Group | Not or | + + + Author + + + | Author | [facility] | | | and [place] | + + + | Organization | [facility] | | | and [place] | + + + | Address | Unknown | + + + | Phone | Unavailable | + + + Support + + + + + | Name | Relationship | Address | Phone | + + + + + | [employer] | ECON | [phone] | | | | | Unknown | | + + + + + Care Team Providers + +------+ + | Care Experimental Rocket Sled Mechanic Name | Role | Phone | + +------+ + | Gela Trimble NP | PCP | | + +------+ + Reason for Visit +--------+--------+ + | Reason | Onset | Comments | | | Date | | +--------+--------+ + | Other | 02/28/ | pt to ER | | | 2013 | | +--------+--------+ + Encounter Details +--------+ + + + + | Date | Type | Department | Care Team | Description | +--------+ + + + + | 02/28/ | Telephone | [facility] [place] | [place], | Other (pt to ER) | | 2013 | | PULMONARY [address] | Vera Farrar MD | | | | | [place], | | | | | | [place] [address] | | | | | | [phone] | | | +--------+ + + + [...] Telephone Encounter - Vera Lainez MD - 02/28/2014 12:37 PM PDTNoted. Electronica lly signed by Vera Lainez MD at 02/28/2014 12:37 PM PDTTelephone Encounter - Tarah Whitmore RN - 02/28/2014 11:47 AM PDTFYI Modesta called stating that it is their protoc ol to inform a patient's physician when they are sent to ER. Margarita is going to ER at [facility] in [place] for an irregular heart rate and O2 sats dropping to 60-70% on O2 at 2 l/m. documented in this e ncounter Plan of Treatment +--------+ + + + + | Date | Type | Specialty | Care Team | Description | +--------+ + + + + | 07/23/ | Appointment | Pulmonology | Helen Astudillo | | | 2019 | | | MD [address] | | | | | | [address] | | | | | | [place] [address] | | | | | | [phone] | | | | | | | | +--------+ + + + + | 07/23/ | Office | Pulmonology | Helen Astudillo | | | 2019 | Visit | | MD [address] | | | | | | [address] | | | | | | [place] [address] | | | | | | [phone] | | | | | | | | +--------+ + + + + documented as of this encounter Visit Diagnoses Not on filedocumented in this encounter"
--- OUTSIDE RECORDS SUMMARY | ~2020-07-11 | XMS | Encounter Summary ---
Demographics + + + | Address | [address] | | | [place] [address] | + + + | Home Phone | | + + + | Preferred Language | Unknown | + + + | Marital Status | Single | + + + | Mandaeism Affiliation | 1009 | + + + [...] + | [employer] | ECON | [phone] | | | | | Unknown | | + + + + + Care Team Providers + +------+ + | Care On Site Wastewater Systems Technician Name | Role | Phone | + +------+ + | Pcp, Prov Inactive | PCP | | + +------+ + Reason for Visit + +--------+ + | Reason | Onset | Comments | | | Date | | + +--------+ + | Medication | 06/01/ | | | Management | 2018 | | + +--------+ + Encounter Details +--------+--------+ + + + | Date | Type | Department | Care Team | Description | +--------+--------+ + + + | 06/01/ | Refill | [facility] [place] | [place], | Medication | | 2018 | | GASTROENTEROLOGY | BRITTANY Maddox [address] | Management | | | | [address] | [address] | | | | | [address] [place], [place] | [place], [place] | | | | | [address] | [address] | | | | | [phone] | | | +--------+--------+ + + + [...] this encounter Miscellaneous Notes Telephone Encounter - Chloe Vora CMA - 06/05/2018 10:55 AM PDTNotified nursing fac ility that patient will need an appointment before we can send any more refills.Electronical ly signed by Chloe Vora CMA at 06/05/2018 10:56 AM PDTTelephone Encounter - Varsha Pringle nd, ARNP - 06/05/2018 7:49 AM PDTCannot refill. Insurance requires office appointm ent prior to refill of PPI 7 :49 AM PDTdocumented in this encounter Plan of [...] | | | | | [place] [address] | | | | | | [phone] | | | | | | | | +--------+ + + + + | 07/23/ | Office | Pulmonology | Helen Astudillo | | 2019 | Visit | | MD Vikash [address] | | | | | | [address] | | | | | | [place] [address] | | | | | | [phone] | | | | | | | | +--------+ + + + + documented as of this encounter Visit Diagnoses Not on filedocumented in this encounter"
--- OUTSIDE RECORDS SUMMARY | ~2020-07-11 | XMS | Encounter Summary ---
Demographics + + + | Address | [address] | | | [place] [address] | + + + | Home Phone | | + + + | Preferred Language | Unknown | + + + | Marital Status | Single | + + + | Caodaism Affiliation | 1009 | + + + | Race | White | + + + | Ethnic Group | Not or | + + + Author + + + | Author | [facility] | | | and [place] | + + + | Organization | [facility] | | | and [place] | + + + | Address | Unknown | + + + | Phone | Unavailable | + + + Support + + + + + | Name | Relationship | Address | Phone | + + + + + | [employer] | ECON | [phone] | | | | | Unknown | | + + + + + Care Team Providers + +------+ + | Care Yarn Wrapper Name | Role | Phone | + [...] | Primary | [place], | [address] | | | | | pulmonary | Vera B, | [place], | | | | | hypertension | MD [address] | [place] | | | | | ([facility]) | [address] | [address] | | | | | Procedures | [place], | Phone: | | | | | ECHO | [place] [address] | [phone] | | | | | Complete | | Fax: | | | | | APPT | | [phone] | | | | | 03/18/14. | [...] + + | 12/17/ | Office | [facility] [place] | [place], | Primary pulmonary | | 2014 | Visit | PULMONARY [address] | Vera Farrar MD | hypertension | | | | [place], | | (Primary Dx); [place] | | | | [place] [address] | | (obstructive sleep | | | | [phone] | | apnea); COPD | | | [...] original. Pulmonary Follow Up MD [facility] [address] [place], [address] HPI Margarita Rowley is a 48 y.o. [...] study done Tuesday, reading is yet shay gaona. They note that [facility] will need an updated prescription for this when the new ma chine is required. She has continued to have [...] Years of Education: N/A Occupational History Disabled. [employer] Social History Main Topics Smoking status: Former Smoker -- 1.0 packs/day for 20 years Types: Cigarettes Quit date: 05/14/2013 Smokeless tobacco: None Alcohol Use: Yes Comment: history of abuse Drug Use: Yes Special: Cocaine Comment: history of cocaine use Sexually Active: None Other Topics Concern None Social History Narrative [facility]. Allergies: Allergies Allergen Reactions Erythromycin Metronidazole Penicillins [...] TABS Take 2,000 Units by mouth Daily. [place] Starch POWD by Does not apply route [...] mg per tablet Take 1 tablet by lonny out every 6 hours as needed. levothyroxine (SYNTHROID, LEVOTHROID) 137 MCG tablet Take 175 mcg by mouth every mornin g (before breakfast). Magnesium Hydroxide (MILK OF MAGNESIA PO) Take 30 mLs by mouth as needed. meloxicam (MOBIC) 15 mg tablet Take 15 mg by mouth Daily. [DISCONTINUED] nitrofurantoin (MACROBID) 100 mg capsule Take 100 mg by mouth 2 times da jammie. [place]-3 Fatty Acids (SEA-OMEGA 30) 1200 MG CAPS [...] breath sounds are diminished bilaterally, no wheezes, aircraft maintenance technician ckles or rhonchi Chest Wall: No deformity [...] and was reviewed and interpreted in clinic diamond sarkar. The patient walked 121 meters in 6 minutes. The baseline oxygen saturation was 95% and h eart rate was 77. The lowest oxygen saturation was 95% (increased to 97% with exertion) and heart rate increased to 98. VPAP Data: Dates: 10/21/13-11/19/13 Home Health Company: [facility] Machine type: Respironics BiPAP auto IPAP Pressure: 19 cm H2O EPAP Pressure: 5.0 cm H2O AHI: 66.4 Total number of days: 30 Number of days used: 29 Median daily usage: 6:22 hours Percent of days used for more than 4 hours: 93.3 % Average % of night in large leak: 10% Rhoda Rviera's notes were reviewed in clinic today. Immunization [...] fit, issues with adjusting machine with the EndoShape and with her AHI remaining high despite [...] made to ensure accuracy; however, inadvertent computerized mogul operator errors may be pre sent. documented [...] | | | | | [place] [address] | | | | | | [phone] | | | | | | | | +--------+ + + + + | 07/23/ | Office | Pulmonology | Helen Astudillo | | | 2019 | Visit | | MD [address] | | | | | | [address] | | | | | | [place] [address] | | | | | | [phone] | | | | | | | | +--------+ + + + + documented as of this encounter Results ECHO Complete (03/12/2014 8:36 AM PDT) + + | Specimen | + + | | + + + + + | Narrative | Performed At | + + + | [facility] ECHOCARDIOGRAM REPORT | [place] | | STUDY DATE: 03/12/2014 PATIENT NAME: Margarita Rowley : | [facility] | | 1965 PCP: Gela Trimble CLINICAL [facility] | | HISTORY/DIAGNOSIS: PULM HTN A transthoracic [...] PhD FACC 03/12/2014 8:38 | | | Customer Care Associate: Hung Caro, TIRSO, RVT, RDMS | | + + + + + | Procedure Note | + + | Roberto Salguero MD - 03/12/2014 6:[address] [facility] | | CENTERECHOCARDIOGRAM REPORTSTUDY DATE: 03/12/2014PATIENT NAME: Margarita Vora: | | 1965MRN: [id number]: Gela Mistry ShayINICAL HISTORY/DIAGNOSIS: PULM HTNA | | transthoracic echocardiogram [...] | mmHgLA volume: 34 mLLA index: 18 mL/j9Ghhvbc Inflow DT: 290 msIVRT: 117 msValsalva: | | YES, TO NO EFFECTPWDTI S wave: 12.0 cm/sPWDTI E wave: 15.5 cm/sPWDTI A wave: 24.1 | | cm/sE/A Ratio: 0.643E/E Ratio: Signed by: Artie Salguero MD PhD FACC 03/12/2014 | | 8:38 Customer Care Associate: Hung Caro, RDMARIANA, RVT, RDMS | |Mitral valve: mildly thickened [...] 03/12/2014 8:38 | | | | | |Customer Care Associate: Hung Caro, JUANITOCS, RVT, RDMS | + + + + + + + | Performing | Address | City/State/Zipcode | Phone Number | | Organization | | | | + + + + + | [facility] | [address] | [place] | [phone] | | [facility] | | [address] | | | - IMAGING | | [...]
--- OUTSIDE RECORDS SUMMARY | ~2020-07-11 | XMS | Encounter Summary ---
Demographics + + + | Address | [address] | | | [place] [address] | + + + | Home Phone [...] Author + + + | Author | [facility] | | | and [place] | + + + | Organization | [facility] | | | and [place] | + + + | Address | Unknown | + + + | Phone | Unavailable | + + + Support + + + + + | Name | Relationship | Address | Phone | + + + + + | [employer] | ECON | [phone] | | | | | Unknown | | + + + + + Care Team Providers + +------+ + | Care Cancer Program Coordinator Name | Role | Phone | + +------+ + | Gela Trimble NP | PCP | | + +------+ + Reason for Visit +--------+--------+ + | Reason | Onset | Comments | | | Date | | +--------+--------+ + | Other | 03/12/ | | | | 2013 | | +--------+--------+ + Encounter Details +--------+ + + + + | Date | Type | Department | Care Team | Description | +--------+ + + + + | 03/12/ | Telephone | [facility] [place] | [place], | Other | | 2013 | | PULMONARY [address] | Vera Farrar MD | | | | | [place], | | | | | | [place] [address] | | | | | | [phone] | | | +--------+ + + + [...] Telephone Encounter - Vera Lainez MD - 03/12/2014 3:52 PM PDTThanks, and her I believe as I think that is the Dr. Fajardo who left here. elephone Encounter - Amanda Ellis - 03/12/2014 1 :50 PM PDTThey called to let Dr. Lainez know that Margarita's neurologist is Dr.Fei Fajardo in [place], [place]. She has an appointment with him next month either the or .Electronical ly signed by Amanda Ellis at 03/12/2014 1:52 PM PDTdocumented in this encounter Plan of [...] | | | | | [place] [address] | | | | | | [phone] | | | | | | | | +--------+ + + + + | 07/23/ | Office | Pulmonology | Helen Astudillo | | | 2019 | Visit | | MD [address] | | | | | | [address] [place] | | | | | | [place] [address] | | | | | | [phone] | | | | | | | | +--------+ + + + + documented as of this encounter Visit Diagnoses Not on filedocumented in this encounter"
--- OUTSIDE RECORDS SUMMARY | ~2020-07-11 | XMS | Encounter Summary ---
Demographics + + + | Address | [address] | | | [place] [address] | + + + | Home Phone [...] | Organization | [facility] | | | and [place] | + + + | Address | Unknown | + + + | Phone | Unavailable | + + + Support + + + + + | Name | Relationship | Address | Phone | + + + + + | [employer] | ECON | [id number] | | | | | Unknown | | + + + + + Care Team Providers + +------+ + | Care Irrigation Service Technician Name | Role | Phone | + +------+ + PCP | Unavailable | + +------+ + Encounter Details +--------+ + + + + | Date | Type | Department | Care Team | Description | +--------+ + + + + | 12/25/ | Hospital | [facility] | | | | 2008 | Encounter | HOSPITAL GENERIC OP | | | | | | CONVERSION | | | | | | DEPARTMENT [address] | | | | | | [address] | | | | | | [place] | | | | | | [address] | | | | | | [phone] | | | +--------+ + + + [...] | | | | | | [place] [address] | | | | | | [phone] | | | | | | | | +--------+ + + + + | 07/23/ | Office | Pulmonology | Helen Astudillo | | | 2019 | Visit | | MD Joey Suh | | | | | | [address] | | | | | | [place] [address] | | | | | | [phone] | | | | | | | | +--------+ + + + + documented as of this encounter Visit Diagnoses Not on filedocumented in this encounter"
--- OUTSIDE RECORDS SUMMARY | ~2020-07-11 | XMS | Encounter Summary ---
Demographics + + + | Address | [address] | | | [place] [address] | + + + | Home Phone [...] | Organization | [facility] | | | and [place] | + + + | Address | Unknown | + + + | Phone | Unavailable | + + + Support + + + + + | Name | Relationship | Address | Phone | + + + + + | Projects Horizon | ECON | [phone] | | | | | Unknown | | + + + + + Care Team Providers + +------+ + | Care Manager Strategic Alliances Name | Role | Phone | + +------+ + PCP | Unavailable | + +------+ + Encounter Details +--------+ + + + + | Date | Type | Department | Care Team | Description | +--------+ + + + + | 04/03/ | Hospital | [facility] | Ana Lilia Olmos | | | 2008 | Encounter | HOSPITAL BUSINESS | MD [address] | | | | | OFFICE [address] | [address] | | | | | [address] [place], [place] | [place] [address] | | | | | [address] | [phone] | | | | | [phone] | | | +--------+ + + + [...] | | | | | [place] [address] | | | | | | [phone] | | | | | | | | +--------+ + + + + | 07/23/ | Office | Pulmonology | Helen Astudillo | | | 2019 | Visit | | MD [address] | | | | | | [address] | | | | | | [place] [address] | | | | | | [phone] | | | | | | | | +--------+ + + + + documented as of this encounter Visit Diagnoses Not on filedocumented in this encounter"
--- OUTSIDE RECORDS SUMMARY | ~2020-07-11 | XMS | Encounter Summary ---
Demographics + + + | Address | [address] | | | [place] [address] | + + + | Home Phone [...] + + + | Author | [facility] | | | and [place] | + + + | Organization | [facility] | | | and [place] | + + + | Address | Unknown | + + + | Phone | Unavailable | + + + Support + + + + + | Name | Relationship | Address | Phone | + + + + + | Projects [employer] | ECON | [phone] | | | | | Unknown | | + + + + + Care Team Providers + +------+ + | Care Weight Count Operator Name | Role | Phone | + +------+ + | Yuni Shrestha | PCP | | + +------+ + Encounter Details +--------+ + + + + | Date | Type | Department | Care Team | Description | +--------+ + + + + | 08/07/ | Abstract | [facility] | Fatou, | | | 2014 | | PULMONARY [address] | Vera Farrar MD | | | | | [place], | | | | | | [place] [address] | | | | | | [phone] | | | +--------+ + + + [...] | | | | | [place] [address] | | | | | | [phone] | | | | | | | | +--------+ + + + + | 07/23/ | Office | Pulmonology | Helen Astudillo | | | 2019 | Visit | | MD [address] | | | | | | [address] [place] | | | | | | [place], [place] [address] | | | | | | [phone] | | | | | | | | +--------+ + + + + documented as of this encounter Procedures + +--------+ + + + | Procedure Name | Priori | Date/Time | Associated Diagnosis | Comments | | | ty | | | | + +--------+ + + + | HC POC URINE | Routin | 07/09/2015 | | Results for this | | TEST | e | | | procedure are in the | | | | | | results section. | + +--------+ + + + documented in this encounter Results POC URINE TEST (07/09/2015) + + + + + + | Component | Value | Ref Range | Performed | Pathologist | | | | | At | Signature | + + + + + + | Preg Test, | Comment: NEGATIVE | | | | | Ur | | | | | + + + + + + + + | Specimen | + + | | + + documented in this encounter Visit Diagnoses Not on filedocumented in this encounter"
--- OUTSIDE RECORDS SUMMARY | ~2020-07-11 | XMS | Encounter Summary ---
Demographics + + + | Address | [address] | | | [place] [address] | + + + | Home Phone [...] Author + + + | Author | [facility] | | | and [place] | + + + | Organization | [facility] | | | and [place] | + + + | Address | Unknown | + + + | Phone | Unavailable | + + + Support + + + + + | Name | Relationship | Address | Phone | + + + + + | Projects [employer] | ECON | [phone] | | | | | Unknown | | + + + + + Care Team Providers + +------+ + | Care Clerical Adjuster Name | Role | Phone | [...] sleep apnea); | | | | [place], | | Hypoxemia | | | | [place] [address] | | | | | | [phone] | | | +--------+ + + + [...] | | | | | | [place] | | | | | | [place] [address] | | | | | | [phone] | | | | | | | | +--------+ + + + + | 07/23/ | Office | Pulmonology | Helen Astudillo | | | 2019 | Visit | | MD [address] | | | | | | [address] [place] | | | | | | [place] [address] | | | | | | [phone] | | | | | | | | +--------+ + + + + documented as of this encounter Visit Diagnoses + + | Diagnosis | + + | GLORIA (obstructive sleep apnea) Obstructive sleep apnea (adult) (pediatric) | + + | Hypoxemia | + + documented in this encounter"
--- OUTSIDE RECORDS SUMMARY | ~2020-07-11 | XMS | Encounter Summary ---
Demographics + + + | Address | [address] | | | [place] [address] | + + + | Home Phone [...] + + + | Author | [facility] | | | and [place] | + + + | Organization | [facility] | | | and [place] | + + + | Address | Unknown | + + + | Phone | Unavailable | + + + Support + + + + + | Name | Relationship | Address | Phone | + + + + + | Projects [employer] | ECON | [phone] | | | | | Unknown | | + + + + + Care Team Providers + +------+ + | Care Automotive Maintenance Technician Name | Role | Phone | [...] | | | | | | [place] [address] | | | | | | [phone] | | | +--------+ + + + [...] | | | | | | [place] [address] | | | | | | [phone] | | | | | | | | +--------+ + + + + | 07/23/ | Office | Pulmonology | Helen Astudillo | | | 2019 | Visit | | MD [address] | | | | | | [address] [place] | | | | | | [place] [address] | | | | | | [phone] | | | | | | | [...] | | Test, | | | [facility] | | | Urine, POC | | [...] [facility] | [address] | [place] | [phone] | | [facility] | | [address] | | | - LABORATORY | | | | + + + + + documented in this encounter Visit Diagnoses Not on filedocumented in this encounter"
--- OUTSIDE RECORDS SUMMARY | ~2020-07-11 | XMS | Encounter Summary ---
Demographics + + + | Address | [address] | | | [place] [address] | + + + | Home Phone [...] + | [employer] | ECON | [phone] | | | | | Unknown | | + + + + + Care Team Providers + +------+ + | Care Dental Laboratory Assistant Name | Role | Phone | [...] | | | | | | | RI XCAPSL | | | | | | [...] + | 05/08/ | Anesthesia | [facility] | Scout Lagunas, | | | 2019 | Event | MED CTR OR INTRA OP | MD [address] | | | | | [address] | [place] | | | | | [place] | [address] | | | | | [address] | | | | | | [phone] | | | +--------+ + + + [...] 05/08/20 1033 by | | eral | [id number] catheter system; | Janeth Norwood, | Kim [...] EVALUATION Margarita Rowley 54 y.o. female 1965 [id number] Procedure(s) Left EXTRACTION CATARACT W/ LENS IMPLANT [...] Scout Lagunas MD 05/08/2020 10:45 AM PDT [facility] at 07/2020 10:45 AM PDTAnesthesia Preprocedure Evaluation - Scout Lagunas MD - 05/08/2020 8: 10 AM PDT ANESTHESIA PREANESTHESIA EVALUATION Margarita Rowley 54 y.o. female 1965 [id number] Procedure(s): RIGHT EXTRACTION CATARACT W/ OR W/O LENS IMPLANT (Right Eye) Medical,anesthesia, drug, allergy histories reviewed, NPO status verified. Review of Systems / Med History Anesthesia History Emergently intubated in [place] 01/2020 -- videolaryngoscope used witho ut incident.. [...] NOTE Margarita Rowley 54 y.o. female 1965 [id number] Left EXTRACTION CATARACT W/ LENS IMPLANT (Left [...] Scout Lagunas MD 05/08/2020 10:04 AM PDT [facility] MD at [...] | | | | | | [address] [facility] | | | | | | [place] [address] | | | | | | [phone] | | | | | | | | +--------+ + + + + | 07/23/ | Office | Pulmonology | Helen Astudillo | | | 2019 | Visit | | MD Vikash [address] | | | | | | [address] [facility] | | | | | | [place] [address] | | | | | | [phone] | | | | | | | [...]
--- OUTSIDE RECORDS SUMMARY | ~2020-07-11 | XMS | Encounter Summary ---
Demographics + + + | Address | [address] | | | [place] [address] | + + + | Home Phone [...] Organization | [facility] | | | and [place] | + + + | Address | Unknown | + + + | Phone | Unavailable | + + + Support + + + + + | Name | Relationship | Address | Phone | + + + + + | Projects [employer] | ECON | [phone] | | | | | Unknown | | + + + + + Care Team Providers + +------+ + | Care Legal Receptionist Name | Role | Phone | + [...] + + | 10/16/ | Office | [facility] | Jacky Calderon PA | Primary central | | 2012 | Visit | SLEEP DISORDER [address] | [address] | sleep apnea (Primary | | | | [address] [place] | [place] | Dx) | | | | [place] [address] | [address] | | | | | [phone] | | | +--------+---------+ + + + [...] was: 09/25/2013 date of polysomnography: 03/13/2013 at [facility] AHI: 64.2 O2%: n/a Machine type: Respironics BiPAP Auto with ResMed Quattro FX full face mask obtained from: [facility] pressure: 18/14 cm Nights using BiPAP: 20/21 [...] prescription sent to [facility] in [place] by Dr. Lainez had the correct pressures. [facility] in [facility] will make the adjustment to Jessie's BiPAP [...] I talked with [facility] in [facility] having her pressures corrected to IPAP 19 cm, EPAP 5 cm and a backup of 8 bpm with 2 L/mi n O2 bled into the system. I will follow up again in 1 month, sooner prn. Fifteen minutes were spent [id number], wi th the majority of time spent [...] | | | | | | [place] [address] | | | | | | [phone] | | | | | | | | +--------+ + + + + | 07/23/ | Office | Pulmonology | Helen Astudillo | | | 2020 | Visit | | MD [address] | | | | | | [address] [place] | | | | | | [place] [address] | | | | | | [phone] | | | | | | | | +--------+ + + + + documented as of this encounter Visit Diagnoses + + | Diagnosis | + + | Primary central sleep apnea - Primary | + + documented in this encounter"
--- OUTSIDE RECORDS SUMMARY | ~2020-07-11 | XMS | Encounter Summary ---
Demographics + + + | Address | [address] | | | [place] [address] | + + + | Home Phone [...] + | Projects [employer] | ECON | [phone] | | | | | Unknown | | + + + + + Care Team Providers + +------+ + | Care Production Planning Manager Name | Role | Phone | + +------+ + PCP | Unavailable | + +------+ + Encounter Details +--------+ + + + + | Date | Type | Department | Care Team | Description | +--------+ + + + + | 11/07/ | Hospital | [facility] | Shady Mcdonald | | | 2009 | Encounter | HOSPITAL XRAY [address] | MD Rud[address] | | | | | [address] [facility] [place] | | | | | [place] | [address] | | | | | [address] | [phone] | | | | | [phone] | | | +--------+ + + + [...] | | | | | | [place] [address] | | | | | | [phone] | | | | | | | | +--------+ + + + + | 07/23/ | Office | Pulmonology | Helen Astudillo | | | 2019 | Visit | | MD [address] | | | | | | [address] [place] | | | | | | [place] [address] | | | | | | [phone] | | | | | | | | +--------+ + + + + documented as of this encounter Visit Diagnoses Not on filedocumented in this encounter"
--- OUTSIDE RECORDS SUMMARY | ~2020-07-11 | XMS | Encounter Summary ---
Demographics + + + | Address | [address] | | | [place] [address] | + + + | Home Phone [...] + | Projects [employer] | ECON | [phone] | | | | | Unknown | | + + + + + Care Team Providers + +------+ + | Care Machine Preservative Filler Name | Role | Phone | + +------+ + PCP | Unavailable | + +------+ + Encounter Details +--------+ + + + + | Date | Type | Department | Care Team | Description | +--------+ + + + + | 04/06/ | Hospital | [facility] | Angel Carvajal | | | 2011 | Encounter | HOSPITAL EMERGENCY | MD Gabriella [address] [facility] | | | | | CENTER [address] | [facility] [address] | | | | | [address] [place] | [place], [place] | | | | | [address] | [address] | | | | | [phone] | | | +--------+ + + + [...] | | | | | | [place] [address] | | | | | | [phone] | | | | | | | | +--------+ + + + + | 07/23/ | Office | Pulmonology | Helen Astudillo | | | 2019 | Visit | | MD [address] | | | | | | [address] [place] | | | | | | [place] [address] | | | | | | [phone] | | | | | | | | +--------+ + + + + documented as of this encounter Visit Diagnoses Not on filedocumented in this encounter"
--- OUTSIDE RECORDS SUMMARY | ~2020-07-11 | XMS | Encounter Summary ---
Demographics + + + | Address | [address] | | | [place] [address] | + + + | Home Phone [...] + | Projects [employer] | ECON | [phone] | | | | | Unknown | | + + + + + Care Team Providers + +------+ + | Care Psychiatric Secretary Name | Role | Phone | + [...] + + | 11/20/ | Office | [facility] | Jacky Calderon PA | Primary central | | 2014 | Visit | SLEEP DISORDER [address] | [address] | sleep apnea (Primary | | | | [address] [place] | [place] | Dx) | | | | [place] [address] | [address] | | | | | [phone] | | | +--------+---------+ + + + [...] 11/20/2013 11:19 AM PST Subjective: Patient ID: Mragarita Rowley is a 48 y.o. female. HPI last office visit was: 10/16/2013 date of polysomnography: 03/13/2013 at [facility] AHI: 64.2 O2%: n/a Machine type: Respironics BiPAP Auto with ResMed Quattro FX full face mask obtained from: [facility] pressure: 18/14 cm 19/5 cm Nights using BiPAP: 34/35 average usage (all nights): 6:27 6:15 average usage (nights used): 6:47 6:26 AHI: 11.0 62.5 Jessie comes in for BiPAP compliance. She was referred by Dr. Lainez to help with her pr oblems with leaks and her apnea not being completely controlled. We had [facility] in [place] change her pressure to the original prescription [...] study, sooner prn. Fifteen minutes were spent [id number], with the majority of time spent in [...] | | | | | [place] [address] | | | | | | [phone] | | | | | | | | +--------+ + + + + | 07/23/ | Office | Pulmonology | Baudilio Helen | | | 2019 | Visit | | MD Vikash [address] | | | | | | [address] [place] | | | | | | [place] [address] | | | | | | [phone] | | | | | | | | +--------+ + + + + documented as of this encounter Visit Diagnoses + + | Diagnosis | + + | Primary central sleep apnea - Primary | + + documented in this encounter"
--- OUTSIDE RECORDS SUMMARY | ~2020-07-11 | XMS | Encounter Summary ---
Demographics + + + | Address | [address] | | | [place] [address] | + + + | Home Phone | | + + + | Preferred Language | Unknown | + + + | Marital Status | Single | + + + | Taoism Affiliation | NRP | + + + | Race | White | + + + | Ethnic Group | Not or | + + + Author + + + | Author | [facility] | + + + | Organization | [facility] | + + + | Address | Unknown | + + + | Phone | Unavailable | + + + Support + + +---------+ + | Name | Relationship | Address | Phone | + + +---------+ + | Lidia Thibodeaux | ECON | Unknown | | + + +---------+ + Care Team Providers + +------+ + | Care Fish Hatchery Man Name | Role | Phone | + [...] | | [place] | [address] | | | | | [address] | [phone] | | | | | [phone] | | | +--------+ + + + [...]
--- OUTSIDE RECORDS SUMMARY | ~2020-07-11 | XMS | Encounter Summary ---
Demographics + + + | Address | [address] | | | [place] [address] | + + + | Home Phone | | + + + | Preferred Language | Unknown | + + + | Marital Status | Single | + + + | Cheondoism Affiliation | NRP | + + + | Race | White | + + + | Ethnic Group | Not or | + + + Author + + + | Author | [facility] | + + + | Organization | [facility] | + + + | Address | Unknown | + + + | Phone | Unavailable | + + + Support + + +---------+ + | Name | Relationship | Address | Phone | + + +---------+ + | Lidia Thibodeaux | ECON | Unknown | | + + +---------+ + Care Team Providers + +------+ + | Care Tacking Machine Operator Name | Role | Phone [...] Pavilion | | | | | | [address] | | | | | | Loop Physician's | | | | | | [place], [address] [place] [address] | | | | | | [place], [place] | | | | | | [address] | | | | | | [phone] | | | +--------+ + + + [...] this encounter Miscellaneous Notes Telephone Encounter - Shady Rosen - 02/14/2015 9:16 AM PDTThis encounter has been admin istratively closed with the authorization of the [facility] Committee. documented in this encounter Plan of Treatment Not on filedocumented as of this encounter Visit Diagnoses Not on filedocumented in this encounter"
--- OUTSIDE RECORDS SUMMARY | ~2020-07-11 | XMS | Encounter Summary ---
Demographics + + + | Address | [address] | | | [place] [address] | + + + | Home Phone [...] Author + + + | Author | [facility] | | | and [place] | + + + | Organization | [facility] | | | and [place] | + + + | Address | Unknown | + + + | Phone | Unavailable | + + + Support + + + + + | Name | Relationship | Address | Phone | + + + + + | Projects [employer] | ECON | [phone] | | | | | Unknown | | + + + + + Care Team Providers + +------+ + | Care Deputy Grand Jury Name | Role | Phone | + [...] + + | 05/21/ | Office | [facility] | Jacky Calderon PA | Primary central | | 2014 | Visit | SLEEP DISORDER [address] | [address] | sleep apnea (Primary | | | | [address] [place] | [place] | Dx) | | | | [place] [address] | [address] | | | | | [phone] | | | +--------+---------+ + + + [...] was: 01/23/2014 date of polysomnography: 03/13/2013 at [facility] AHI: 64.2 O2%: n/a Machine type: Respironics BiPAP Auto with ResMed Quattro FX full face mask obtained from: [facility] pressure: 16/5 cm with backup rate [...] year, sooner prn. Fifteen minutes were spent [id number], with the majority of time spent in counseling. Jacky Calderon PA-C cc: BRUCE Beal MD documented in this enco unter Miscellaneous Notes Miscellaneous - [facility] - 05/21/2014 12:00 AM PDT documented in [...] [place] | | | | | | [place] [address] | | | | | | [phone] | | | | | | | | +--------+ + + + + | 07/23/ | Office | Pulmonology | Helen Astudillo | | | 2019 | Visit | | MD [address] | | | | | | [place] | | | | | | [place] [address] | | | | | | [phone] | | | | | | | | +--------+ + + + + documented as of this encounter Visit Diagnoses + + | Diagnosis | + + | Primary central sleep apnea - Primary | + + documented in this encounter"
--- OUTSIDE RECORDS SUMMARY | ~2020-07-11 | XMS | Encounter Summary ---
Demographics + + + | Address | [address] | | | [place] [address] | + + + | Home Phone [...] Author + + + | Author | [facility] | | | and [place] | + + + | Organization | [facility] | | | and [place] | + + + | Address | Unknown | + + + | Phone | Unavailable | + + + Support + + + + + | Name | Relationship | Address | Phone | + + + + + | Projects [employer] | ECON | [phone] | | | | | Unknown | | + + + + + Care Team Providers + +------+ + | Care Care Director Name | Role | Phone | [...] [place] | | | | | [address] | [address] | | | | | [phone] | [phone] | | | | | | | [...] | | | | | [place] [address] | | | | | | [phone] | | | | | | | | +--------+ + + + + | 07/23/ | Office | Pulmonology | Helen Astudillo | | | 2019 | Visit | | MD [address] | | | | | | [address] [place] | | | | | | [place] [address] | | | | | | [phone] | | | | | | | | +--------+ + + + + documented as of this encounter Visit Diagnoses Not on filedocumented in this encounter"
--- OUTSIDE RECORDS SUMMARY | ~2020-07-11 | XMS | Encounter Summary ---
Demographics + + + | Address | [address] | | | [place] [address] | + + + | Home Phone [...] + + + | Author | [facility] | | | and [place] | + + + | Organization | [facility] | | | and [place] | + + + | Address | Unknown | + + + | Phone | Unavailable | + + + Support + + + + + | Name | Relationship | Address | Phone | + + + + + | [employer] | ECON | [phone] | | | | | Unknown | | + + + + + Care Team Providers + +------+ + | Care Refuse Laborer Name | Role | Phone | + +------+ + | Yuni Shrestha | PCP | | + +------+ + Reason for Visit +--------+--------+ + | Reason | Onset | Comments | | | Date | | +--------+--------+ + | Other | 08/14/ | overnight oximetry order | | | 2015 | | +--------+--------+ + Encounter Details +--------+ + + + + | Date | Type | Department | Care Team | Description | +--------+ + + + + | 08/14/ | Telephone | [facility] | Off[place], | Other (overnight | | 2014 | | PULMONARY [address] | Vera Farrar MD | oximetry order) | | | | [place], | | | | | | [place] [address] | | | | | | [phone] | | | +--------+ + + + [...] encounter Miscellaneous Notes Telephone Encounter - Tarah Nino, MARANDA - 08/14/2015 9:18 AM Kristen's caregiver rinku post stating that the order for the overnight oximetry was not sent to [facility]. Order ed and sent. Kelsea villasenor in this encounter Plan of Treatment +--------+ [...] | | | | | [place] [address] | | | | | | [phone] | | | | | | | | +--------+ + + + + | 07/23/ | Office | Pulmonology | Helen Astudillo | | | 2019 | Visit | | MD Vikash [address] | | | | | | [address] [place] | | | | | | [place] [address] | | | | | | [phone] | | | | | | | [...]
--- OUTSIDE RECORDS SUMMARY | ~2020-07-11 | XMS | Clinical Summary ---
Demographics + + + | Address | [address] | | | [place] [address] | + + + | Home Phone | | + + + | Preferred Language | Unknown | + + + | Marital Status | Single | + + + | Judaism Affiliation | NRP | + + + [...] Team Providers + +------+ + | Care Head Of Sales Promotion Name | Role | Phone | + +------+ + | Yuni Shrestha | PCP | | + +------+ + Source Comments SARAH is fully live on both EpicCare Ambulatory and EpicCare InPatient.[facility] Allergies + + + + + + [...] e | + + + +---------+------+------+-------+ | Merritt-3 Fatty | Take 1 Cap by mouth [...] | + +--------+ +--------+ + +--------+ | LOBSTER CATCHER MEDICAID | LOBSTER CATCHER | [id number] | Effect | | | Medica | | | [place]AST[place] | | sofi | | | id | | | [place] | | for | | | | | | | | all | | | | | | | | dates | | | | + +--------+ +--------+ + +--------+ | MEDICAID [place] | OHP | [id number] | 04/07/20 | [phone] | [address] | Medica | | | PLUS | | 12-Pre | 6 | [address] | id | | | OPEN | | sent | | [place], [place] | | | | CARD | | | | [address] | | + +--------+ +--------+ + +--------+ [...] | 1965 | [phone] | [place] [address] | | | jammie | | | 0 (Home) | | + +--------+ +--------+ + + | Margarita Rowley May | Person | Self | [birth year] | [address] | | | al/Fam | | 1965 | [phone] | [place] [address] | | | jammie | | | [...]
--- OUTSIDE RECORDS SUMMARY | ~2020-07-11 | XMS | Encounter Summary ---
Demographics + + + | Address | [address] | | | [place] [address] | + + + | Home Phone [...] + | Organization | [facility] | | | and [place] | + + + | Address | Unknown | + + + | Phone | Unavailable | + + + Support + + + + + | Name | Relationship | Address | Phone | + + + + + | [employer] | ECON | [id number] | | | | | Unknown | | + + + + + Care Team Providers + +------+ + | Care Emergency Medical Technician/Driver Name | Role | Phone | + +------+ + | eGla Trimble NP | PCP | | + [...] | hypertension (HCC) | | | | [place], | | | | | | [place] [address] | | | | | | [phone] | | | +--------+ + + + [...] | | | | | [place] [address] | | | | | | [phone] | | | | | | | | +--------+ + + + + | 07/23/ | Office | Pulmonology | Helen Astudillo | | | 2019 | Visit | | MD Vikash [address] | | | | | | [address] | | | | | | [place] [address] | | | | | | [phone] | | | | | | | | +--------+ + + + + documented as of this encounter Visit Diagnoses + + | Diagnosis | + + | Pulmonary hypertension (HCC) Other chronic pulmonary heart diseases | + + documented in this encounter"
--- OUTSIDE RECORDS SUMMARY | ~2020-07-11 | XMS | Encounter Summary ---
Demographics + + + | Address | [address] | | | [place] [address] | + + + | Home Phone [...] | Organization | [facility] | | | and [place] | + + + | Address | Unknown | + + + | Phone | Unavailable | + + + Support + + + + + | Name | Relationship | Address | Phone | + + + + + | [employer] | ECON | [id number] | | | | | Unknown | | + + + + + Care Team Providers + +------+ + | Care Paraplanner Name | Role | Phone | + [...] MD | oximetry) | | | | [place], | | | | | | [place] [address] | | | | | | [phone] | | | +--------+ + + + [...] Telephone Encounter - Tarah Nino, MARANDA - 08/29/2015 11:15 AM PDTCalled Marry (caregi [...] | | | | | [place] [address] | | | | | | [phone] | | | | | | | | +--------+ + + + + | 07/23/ | Office | Pulmonology | Helen Astudillo | | | 2019 | Visit | | MD Vikash [address] | | | | | | [address] [place] | | | | | | [place] [address] | | | | | | [phone] | | | | | | | [...]
--- OUTSIDE RECORDS SUMMARY | ~2020-07-11 | XMS | Encounter Summary ---
Demographics + + + | Address | [address] | | | [place] [address] | + + + | Home Phone [...] Author + + + | Author | [facility] | | | and [place] | + + + | Organization | [facility] | | | and [place] | + + + | Address | Unknown | + + + | Phone | Unavailable | + + + Support + + + + + | Name | Relationship | Address | Phone | + + + + + | [employer] | ECON | [id number] | | | | | Unknown | | + + + + + Care Team Providers + +------+ + | Care Neonatal Doctor Name | Role | Phone | + +------+ + PCP | Unavailable | + +------+ + Encounter Details +--------+ + + + + | Date | Type | Department | Care Team | Description | +--------+ + + + + | 12/09/ | Hospital | [facility] | [facility] | | | 2008 | Encounter | [facility] [address] | MD Rudi [address] | | | | | [address] | [facility] [place] | | | | | [place] | [address] | | | | | [address] | [phone] | | | | | [phone] | | | +--------+ + + + [...] | | | | | | [place] [address] | | | | | | [phone] | | | | | | | | +--------+ + + + + | 07/23/ | Office | Pulmonology | Helen Astudillo | | | 2019 | Visit | | MD Joey [address] | | | | | | [address] [place] | | | | | | [place] [address] | | | | | | [phone] | | | | | | | | +--------+ + + + + documented as of this encounter Visit Diagnoses Not on filedocumented in this encounter"
--- OUTSIDE RECORDS SUMMARY | ~2020-07-11 | XMS | Encounter Summary ---
Demographics + + + | Address | [address] | | | [place] [address] | + + + | Home Phone [...] + | [employer] | ECON | [id number] | | | | | Unknown | | + + + + + Care Team Providers + +------+ + | Care Ecommerce Analyst Name | Role | Phone | [...] | | | | | pharyngeal | BIOMEDICAL ANALYTICAL SCIENTIST [address] | BIOMEDICAL ANALYTICAL SCIENTIST [address] | | | | | phase | [address] | [address] | | | | | Procedures | [place], | [address] | | | | | Office Visit | [place] [address] | [place], | | | | | | Phone: | [place] [address] | | | | | | [phone] | Phone: | | | | | | Fax: | [phone] | | | | | | [phone] | Fax: | | | | | | | [phone] | +--------+--------+ + + + + Encounter [...] esophagitis presence | | | | [address], [place] | [place], [place] | not specified | | | | [address] | [address] | (Primary Dx); | | | | [phone] | | Esophageal | | | | [...] Diagnosis Date COPD (chronic obstructive pulmonary disease) ([facility]) moderate, FEV1 1.40 (59%) Pulmonary hypertension (HCC) [...] Years of Education: N/A Occupational History Disabled. [employer] Social History Main Topics Smoking status: Former Smoker -- 1.00 packs/day for 20 years Types: Cigarettes Quit date: 12/15/2015 Smokeless tobacco: Never Used Alcohol Use: No Drug Use: No Sexual Activity: Not on file Other Topics Concern Not on file Social History Narrative Lives at [facility]. Review of systems: Constitutional:Denies any fevers, chills, [...] | | | | | [place] [address] | | | | | | [phone] | | | | | | | | +--------+ + + + + | 07/23/ | Office | Pulmonology | BaudilioHelen | | | 2019 | Visit | | MD Vikash [address] | | | | | | [address] [place] | | | | | | [place] [address] | | | | | | [phone] | | | | | | | [...]
--- OUTSIDE RECORDS SUMMARY | ~2020-07-11 | XMS | Clinical Summary ---
Demographics + + + | Address | [address] | | | [place] [address] | + + + | Home Phone | | + + + | Preferred Language | Unknown | + + + | Marital Status | Single | + + + | Gnosticist Affiliation | [id number] | + + + [...] + | [employer] | ECON | [id number] | | | | | Unknown | | + + + + + Care Team Providers + +------+ + | Care Ceiling Installer Name | Role | Phone | [...] e | + + + +---------+------+------+-------+ | divalproex [...] + + + +---------+------+------+-------+ | risperiDONE | Take by mouth 2 | | 5 | 01/2 | | Activ | | (RISPERDAL) 1 mg | times daily Take one | | | 8/20 | | e | | tablet | tablet in the | | | 15 | | | | | morning and [...] | | Activ | | | lungs continuous 2 L | | | 3/20 | | e | | | at rest, 4L with | | | 15 | | | | | exertion, 5L when | | | | | | | | asleep.. | | | | | | + + + +---------+------+------+-------+ | tadalafil | Take 2 tablets by | 60 | 5 | 03/2 | | Activ | | (ADCIRCA) 20 mg | mouth Daily. | tablet | | 1/20 | | e | | tablet | | | | 16 | | | + + + +---------+------+------+-------+ +---+ + | | Additional | | | InformationPatient | | | taking differently: | | | 20 mg Oral DAILY, | | | Reason: Not | | | Available, Reported | | | on 05/07/2020 2:50 PM | +---+ + + + +---------+----+------+---+-------+ | buPROPion | Take 200 mg by mouth | | 0 | | | Activ | | (WELLBUTRIN SR) 200 | Daily. | | | | | e | | MG 12 hr tablet | | | | | | | + + +---------+----+------+---+-------+ | aspirin | Take 81 mg by mouth | | 0 | 12/02 | | Activ | | (ASPIR-LOW) 81 MG EC | Daily. | | | 06/19 | | e | | tablet | | | | 17 | | | + + +---------+----+------+---+-------+ | Trospium Chloride | Take 60 mg by mouth | | 3 | 12/30 | | Activ | | 60 MG CP24 | Daily. | | | 06/19 | | e | | | | | | 17 | | | + + +---------+----+------+---+-------+ | omeprazole | Take 1 capsule by | 60 | 11 | 08 | | Activ | | (PRILOSEC) 20 mg | mouth 2 times daily. | capsule | | 04/19 | | e | | capsule | | | | 18 | | | + + +---------+----+------+---+-------+ +---+ + | | Additional | | | InformationPatient | | | taking differently: | | | 20 mg Oral DAILY | | | BEFORE BREAKFAST, | | | Reason: Not | | | Available, Reported | | | on 05/07/2020 2:50 PM | +---+ + + + + +---+------+---+-------+ | SYMBICORT 160-4.5 | Inhale 2 puffs into | | 4 | 03 | | Activ | | MCG/ACT inhaler | the lungs 2 times | | | 07/20 | | e | | | daily. | | | 19 | | | + + + +---+------+---+-------+ | SF 5000 PLUS 1.1 % | Place 1 Application | | 3 | 02/0 | | Activ | | CREA | onto teeth 2 times | | | /20 | | e | | | daily. | | | 19 | | | + + + +---+------+---+-------+ | Respiratory | Replacement BiPAP | 1 each | 0 | 04/0 | | Activ | | Therapy Supplies | machine and | | | /20 | | e | | MISCIndications: | [...] | | | | + + + +---+------+---+-------+ | | Take 10 mLs by mouth | | 0 | | | Activ | | guaiFENesin-dextrome | as needed | | | | | e | | thorphan (ROBITUSSIN | | | | | | | | DM) 100-10 mg/5 mL | | | | | | | | syrup | | | | | | | + + + +---+------+---+-------+ | montelukast | Take 10 mg by mouth | | 0 | | | Activ | | (SINGULAIR) 10 mg | Daily | | | | | e | | tablet | | | | | | | + + + +---+------+---+-------+ | NYSTATIN 201159 | as needed | | 0 | 04/3 | | Activ | | UNIT/GM powder | | | | 0/20 | | e | | | | | | 20 | | | + + + +---+------+---+-------+ | PARoxetine (PAXIL) | Take 40 mg by mouth | | 0 | | | Activ | | 40 MG tablet | every morning. | | | | | e | + + + +---+------+---+-------+ | selexipag | Take 1 each by mouth | | 0 | | | Activ | | (UPTRAVI) 200 & 800 | 2 times daily. | | | | | e | | mcg tablet | | | | | | | | (titration pack) | | | | | | | + + + +---+------+---+-------+ | povidone-iodine 10 | Apply topically | | 0 | | | Activ | | % swab | Every 30 days Swab | | | | | e | | | around gums . | | | | | | + + + +---+------+---+-------+ | guaiFENesin | Take 200 mg by mouth | | 0 | | | Activ | | (ROBAFEN) 100 mg/5 | 4 times daily as | | | | | e | | mL syrup | needed for Cough. | | | | | | + + + +---+------+---+-------+ | furosemide (LASIX) | Take 40 mg by mouth | | 0 | | | Activ | | 40 mg tablet | 2 times daily. | | | | | e | + + + +---+------+---+-------+ | levothyroxine | Take 125 mcg by | | 0 | | | Activ | | (SYNTHROID) 125 mcg | mouth every morning | | | | | e | | tablet | (before breakfast). | | | | | | + + + +---+------+---+-------+ Active Problems + + | Patient Care Coordination Note | + + | BRITTANY Isidro | + + + + + | Problem | Noted Date | + + + | Acute on chronic respiratory failure with hypoxia | 04/30/2020 | + + + | OAB (overactive [...] + + + + | Overview: Overview: [facility] 05/10/13: RV 109/22PA 105/47 Mean PA | | 63Wedge mean 10Overview: -[facility] 04/2013 [facility]: FindingsBASELINE on 2L | | [...] & Plan: -echocardiogram at local | | hospital-[facility]. We will talk by phone with | | the results.-keep up the good work with walking, BIPAP use, | | oxygen use, and no smoking. 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 -you [...] Walk at next visit. | | Overview: -[facility] 04/2013 [facility]: FindingsBASELINE on 2L O2RA: mean [...] & Plan: -echocardiogram at local | | [facility] We will talk by phone with | | the results.-keep up the good work with walking, BIPAP use, | | oxygen use, and no smoking. 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 -you [...] Walk at next visit. | |Overview: | |-[facility] 04/2013 [facility]: Findings | |BASELINE on 2L [...] |Last Assessment & Plan: | |-echocardiogram at [facility] in [place]. We will talk by phone with t he results. | |-keep up the good work with walking, BIPAP use, oxygen use, and no smoking. | |-continue with your yearly flu vaccine. | |-you should have a f/u appointment with your new traffic sign supervisor sometime in the next 6 month s. [...] | 4 | + + + + Encounters +--------+ + + + + | Date | Type | Specialty | Care Team | Description | +--------+ + + + + | 05/22/ | Surgery | | Angel Garcia | RIGHT EXTRACTION | | 2019 | | | MD Vladimir | CATARACT W/ OR W/O | | | | | | LENS IMPLANT | +--------+ + + + + | 05/22/ | Anesthesia | | Scout Lagunas, | | | 2019 | Event | | MD | | +--------+ + + + + | 05/22/ | Hospital | | Angel Garcia | | | 2019 | Encounter | | MD Vladimir | | +--------+ + + + + | 05/08/ | Surgery | | Angel Garcia | Left EXTRACTION | | 2019 | | | MD Vladimir | CATARACT W/ LENS | | | | | | IMPLANT | +--------+ + + + + | 05/08/ | Anesthesia | | Scout Lagunas, | | | 2019 | Event | | | | +--------+ + + + + | 05/08/ | Hospital | | Angel Garcia | | | 2019 | Encounter | | MD Vladimir | | +--------+ + + + + | 04/30/ | Office | Sleep Medicine | Jacky Calderon PA | GLORIA treated with | | 2019 | Visit | | | BiPAP (Primary Dx) | +--------+ + + + + | 04/16/ | Office | Pulmonology | Helen Astudillo | Primary pulmonary | | 2019 | Visit | | MD Vikash | hypertension (HCC) | | | | | | (Primary Dx); | | | | | | Chronic obstructive | | | | | | pulmonary disease, | | | | | | unspecified COPD | | | | | | type (HCC); Chronic | | | | | | hypoxemic | | | | | | respiratory failure | | | | | | (HCC) | +--------+ + + + + from Last 3 Months Immunizations + + + + | Name | Administration Dates | Next Due | + + + + | INFLUENZA PF | 08/02/2019, 08/15/2017 | | | QUAD(PED/ADOL/ADULT) | | | | ,PSKT or VIAL | | | + + + + | INFLUENZA PF | 08/16/2016, 07/30/2015, 07/18/2014, | | | TRIVALENT(PED/ADOL/A | 07/31/2013 | | | DULT), PSKT | | | + + + + | PNEUMOCOCCAL | 06/16/2016 | | | CONJUGATE 13-VALENT | | | | (PCV13) | | | + + + + | PNEUMOCOCCAL | 03/12/2015, 05/08/2013 | | | POLYSACCHARIDE | | | | 23-VALENT (PPSV23) | | | + + + + | TDAP, (ADOL/ADULT) | 09/22/2015 | | + + + + Family [...] + + + + Plan of Treatment +--------+ + + + + | Date | Type | Specialty | Care Team | Description | +--------+ + + + + | 07/23/ | Appointment | Pulmonology | Helen Astudillo | | | 2019 | | | MD [address] | | | | | | [address] [place] | | | | | | [place], [place] [address] | | | | | | [phone] | | | | | | | | +--------+ + + + + | 07/23/ | Office | Pulmonology | Helen Astudillo | | | 2019 | Visit | | MD Joey [address] | | | | | | [address] [place] | | | | | | [place] [address] | | | | | | [phone] | | | | | | | | +--------+ + + + + + + + + + | Health Maintenance | Due Date | Last | Comments | | | | Done | | + + + + + | Hepatitis C | | | | | Screening | 3 | | | + + + + + | Med Mgmt: HBA1C | | | | | | 3 | | | + + + + + | Med Mgmt: HDL | | | | | | 3 | | | + + + + + | Med Mgmt: LDL | | | | | | 3 | | | + + + + + | Med Mgmt: Total | | | | | Cholesterol | 3 | | | + + + + + | Med Mgmt: | | | | | Triglycerides | 3 | | | + + + + + | Med Mgmt: Valproic | | | | | Acid | 3 | | | + + + + + | Med Mgmt: Vit D | | | | | | 3 | | | + + + + + | Medication | | | | | Management | 3 | | | + + [...] | + + + + + | Med Mgmt: ALT | | 06/08/20 | | | | 7 | 16, | | | | | 06/08/20 | | | | | 16, | | | | | 11/07/19 | | | | | 16, | | | | | Addition | | | | | al | | | | | history | | | | | exists | | + + + + + | Med Mgmt: AST | | 06/08/20 | | | | 7 | 16, | | | | | 06/08/20 | | | | | 16, | | | | | 11/07/19 | | | | | 16, | | | | | Addition | | | | | al | | | | | history | | | | | exists | | + + + + + | Med Mgmt: TSH | | 06/08/20 | | | | 7 | 16 | | + + + + + | Med Mgmt: Cr | | 06/10/20 | | | | 7 | 16, | | | | | 06/10/20 | | | | | 16, | | | | | 06/09/20 | | | | | 16, | | | | | Addition | | | | | al | | | | | history | | | | | exists | | + + + + + | Med Mgmt: HCT | | 06/10/20 | | | | 7 | 16, | | | | | 06/10/20 | | | | | 16, | | | | | 06/10/20 | | | | | 16, | | | | | Addition | | | | | al | | | | | history | | | | | exists | | + + + + + | Med Mgmt: HGB | | 06/10/20 | | | | 7 | 16, | | | | | 06/10/20 | | | | | 16, | | | | | 06/10/20 | | | | | 16, | | | | | Addition | | | | | al | | | | | history | | | | | exists | | + + + + + | Med Mgmt: K | | 06/10/20 | | | | 7 | 16, | | | | | 06/10/20 | | | | | 16, | | | | | 06/09/20 | | | | | 16, | | | | | Addition | | | | | al | | | | | history | | | | | exists | | + + + + + | Med Mgmt: Na | | 06/10/20 | | | | 7 | 16, | | | | | 06/10/20 | | | | | 16, | | | | | 06/09/20 | | | | | 16, | | | | | Addition | | | | | al | | | | | history | | | | | exists | | + + + + + | Med Mgmt: PLT | | 06/10/20 | | | | 7 | 16, | | | | | 06/10/20 | | | | | 16, | | | | | 06/10/20 | | | | | 16, | | | | | Addition | | | | | al | | | | | history | | | | | exists | | + + + + + | Med Mgmt: RBC | | 06/10/20 | | | | 7 | 16, | | | | | 06/10/20 | | | | | 16, | | | | | 06/10/20 | | | | | 16, | | | | | Addition | | | | | al | | | | | history | | | | | exists | | + + + + + | Med Mgmt: WBC | | 06/10/20 | | | | 7 | 16, | | | | | 06/10/20 | | | | | 16, | | | | | 06/10/20 | | | | | 16, | | | | | Addition | | | | | al | | | | | history | | | | | exists | | + + + + + | Med Mgmt: eGFR | | 06/10/20 | | | | 7 | 16, | | | | | 06/10/20 | | | | | 16, | | | | | 06/09/20 | | | | | 16, | | | | | Addition | | | | | al | | | | | history | | | | | exists | | + + + + + | Breast Cancer | | | | | Screening | 8 | | | + + + + + | Vaccine: Influenza | | 08/02/20 | | | (#1) | 0 | 19, | | | | | 08/15/20 | | | | | 17, | | | | | 08/16/20 | | | | | 16, | | | | | Addition | | | | | al | | | | | history | | | | | exists | | + + + + + | Vaccine: | | 09/22/20 | | | Dtap/Tdap/Td (2 - | 5 | 15 | | | Td) | | | | + + + + + | Vaccine: | Completed | 06/16/20 | | | Pneumococcal 19-64 | | 16, | | | | | 03/12/20 | | | | | 15, | | | | | 05/08/20 | | | | | 13 | | + + + + + Implants + +--------+--------+ +--------+--------+--------+ | Implanted | Type | Area | Manufacture | Device | Shelf | Model | | | | | r | | Expira | / | | | | | | Identi | tion | Serial | | | | | | fier | Date | / Lot | + +--------+--------+ +--------+--------+--------+ | Lens Tecnis Preloaded Pcb | Generi | Left: | [place] | | 09/04/ | [id number] | | 23.5 - [id number]: | c | Eye | MEDICAL | | 2021 | [id number] | | Qty: 1 on 05/08/2020 by | | | [employer] - | | | /[id number] | | Angel Garcia MD at | | | [place] | | | [id number] | | [facility] | | | | | | / | | [facility] | | | | | | | + +--------+--------+ +--------+--------+--------+ | Lens Tecnis Preloaded Pcb | Generi | Right: | [place] | | 01/06/ | [id number] | | 23.0 - [id number]: | c | Eye | MEDICAL | | 2022 | 0230 | | Qty: 1 on 05/22/2020 by | | | [employer] - | | | /[id number] | | Angel Garcia MD at | | | [place] | | | [id number] | | [facility] | | | | | | / | | [facility] | | | | | | | + +--------+--------+ +--------+--------+--------+ Procedures + +--------+ + + + | [...] + + | EXTRACTION CATARACT | | 05/08/2020 | Combined forms of | | | W/ OR W/O LENS | | 9:30 AM | age-related | | | IMPLANT | | PDT | cataract, right eye | | + +--------+ + + + +---+--------+ | | | | | Specia | | | l | | | Needs | | | | | | Manager Of Revenue | | | al | | | test | +---+--------+ + +---+ +---+ + | LABS - EXTERNAL SCAN | | 05/05/2020 | | Results for this | | | | 12:00 AM | | procedure are in the | | | | PDT | | results section. | + +---+ +---+ + from Last 3 Months Results PATHOLOGY - EXTERNAL SCAN (05/22/2020 12:00 AM PDT)Only the most recent of 2 results within the time period is included. + + + | Narrative | Performed At | + + + | Ordered by an | | | unspecified provider. | | + + + LABS - EXTERNAL SCAN (05/05/2020 12:00 AM PDT) + + + | Narrative | Performed At | + + + | Ordered by an | | | unspecified provider. | | + + + from Last 3 Months Insurance + +--------+ +--------+ [...] | [employer] | [employer] | [id number] | 04/30/20 | [phone] | | Medica [...] | Self | [birth year] | [address] | | | al/Fam | | 1965 | [phone] | [place] | | | [place] | | | 5 (Home) | [id number] | + +--------+ +--------+ + + | Margarita Rowley | Person | Self | [birth year] | [address] | | | al/Fam | | 1965 | [phone] | [place] | | | [place] | | | 5 ([place]) | [address] | + +--------+ +--------+ + + Advance Directives + + + + + | Type | Date Recorded | Patient | Explanation | | | | Wax Pot Tender | | + + + + + | Power of | | | | | Scrap Hooker | | | | + + + + + | Advance | 03/26/2015 12:35 | | | | Directive | PM | | | + + + + + + + + + + | Code Status | Date | Date | Comments | | | Activated | Inactivated | | + + + + + | Full Code | 05/22/2020 | 05/22/2020 | | | | 3:21 PM | 5:58 PM | | + + + + + + + + +---+ | | | | | + + + +---+ | Full Code | 05/08/2020 | 05/08/2020 | | | | 10:10 AM | 12:42 PM | | + + + +---+
--- OUTSIDE RECORDS SUMMARY | ~2020-07-11 | XMS | Encounter Summary ---
Demographics + + + | Address | [address] | | | [place] [address] | + + + | Home Phone [...] + | [employer] | ECON | [id number] | | | | | Unknown | | + + + + + Care Team Providers + +------+ + | Care Remote Coders Name | Role | Phone | + +------+ + | Gela Trimble NP | PCP | | + +------+ + Reason for Visit +--------+--------+ + | Reason | Onset | Comments | | | Date | | +--------+--------+ + | Other | 07/09/ | Appointment Cancellation | | | 2012 | | +--------+--------+ + Encounter Details +--------+ + + + + | Date | Type | Department | Care Team | Description | +--------+ + + + + | 07/09/ | Telephone | [facility] | Roberto Salguero | Other (Appointment | | 2012 | | [address] [address] | MD Ananth [address] | Cancellation) | | | | [place], | [address] [place] [address] [place] | | | | | [place] [address] | [place] [address] | | | | | [phone] | [phone] | | | | | | | [...] this encounter Miscellaneous Notes Telephone Encounter - Jenise De Luna - 07/09/2013 10:18 AM [employer] project called, th ey stated that the patient is to establish with Dr. Camposectronically signed by Jenise De Luna at 07/09/2013 10:26 AM PDTdocumented in this encounter Plan of [...] | | | | | [place] [address] | | | | | | [phone] | | | | | | | | +--------+ + + + + | 07/23/ | Office | Pulmonology | Helen Astudillo | | | 2019 | Visit | | MD Joey [address] | | | | | | [address] | | | | | | [place] [address] | | | | | | [phone] | | | | | | | | +--------+ + + + + documented as of this encounter Visit Diagnoses Not on filedocumented in this encounter"
--- OUTSIDE RECORDS SUMMARY | ~2020-07-11 | XMS | Encounter Summary ---
Demographics + + + | Address | [address] | | | [place] [address] | + + + | Home Phone [...] + + + | Author | [facility] | + + + | Organization | [facility] | + + + | Address | Unknown | + + + | Phone | Unavailable | + + + Support + + +---------+ + | Name | Relationship | Address | Phone | + + +---------+ + | Lidia Thibodeaux | ECON | Unknown | | + + +---------+ + Care Team Providers + +------+ + | Care Vice President Sales And Marketing Name | Role | Phone | + +------+ + | Gela Trimble NP | PCP | | + +------+ + Encounter Details +--------+ + + + + | Date | Type | Department | Care Team | Description | +--------+ + + + + | 05/04/ | Results | Stress | Other, Faculty | | | 2012 | Only | Echocardiography | [phone] | | | | | [address] | | | | | | Loop Mailcode: | | | | | | [id number] | | | | | | Clinic Building | | | | | | [place], [place] | | | | | | [address] | | | | | | [phone] | | | +--------+ + + + [...] + + + + + | [facility] | [address] | [place], [place] | | | CARDIOLOGY | [address] | [address] | | + + + + + documented in this encounter Visit Diagnoses Not on filedocumented in this encounter"
--- OUTSIDE RECORDS SUMMARY | ~2020-07-11 | XMS | Encounter Summary ---
Demographics + + + | Address | [address] | | | [place] [address] | + + + | Home Phone [...] + + + | Author | [facility] | + + + | Organization | [facility] | + + + | Address | Unknown | + + + | Phone | Unavailable | + + + Support + + +---------+ + | Name | Relationship | Address | Phone | + + +---------+ + | Lidia Thibodeaux | ECON | Unknown | | + + +---------+ + Care Team Providers + +------+ + | Care Dog Food Dough Mixer Name | Role | Phone | [...] | | | | | n | [facility] | | | | | | [place] [address] | | | | | | [phone] | | | +--------+ + + + [...]
--- OUTSIDE RECORDS SUMMARY | ~2020-07-11 | XMS | Encounter Summary ---
Demographics + + + | Address | [address] | | | [place] [address] | + + + | Home Phone [...] Organization | [facility] | | | and [place] | + + + | Address | Unknown | + + + | Phone | Unavailable | + + + Support + + + + + | Name | Relationship | Address | Phone | + + + + + | [employer] | ECON | [id number] | | | | | Unknown | | + + + + + Care Team Providers + +------+ + | Care Extension Edger Name | Role | Phone | + [...] | | | | | | | NE XCAPSL | | | | | | [...] + + | 05/08/ | Hospital | [facility] | Angel Garcia | | | 2019 | Encounter | MED CTR OR INTRA OP | MD [address] | | | | | [address] | [place] | | | | | [place] | [place] [address] | | | | | [address] | [phone] | | | | | [phone] | | | +--------+ + + + [...] + + + | Blood Pressure | 103/63 | 05/08/2020 10:30 AM | | | | | PDT | | + + + + + | Pulse | 70 | 05/08/2020 10:30 AM | | | | | PDT | | + + + + + | Temperature | 36.4 C (97.5 F) | 05/08/2020 10:03 AM | | | | | PDT | | + + + + + | Respiratory Rate | 16 | 05/08/2020 10:30 AM | | | | | PDT | | + + + + + | Oxygen Saturation | 94% | 05/08/2020 10:30 AM | | | | | PDT | | + + + + + | Inhaled Oxygen | - | - | | | Concentration | | | | + + + + + | Weight | 90 kg (198 lb 6.6 | 05/08/2020 7:18 AM | | | | oz) | PDT | | + + + + + | Height | 157.5 cm (5' 2") | 05/08/2020 7:18 AM | | | | | PDT | | + + + + + | Body Mass Index | 36.29 | 05/08/2020 7:18 AM | | | | | PDT | | + + + + + documented in this encounter Discharge Instructions Instructions Kim Rowley RN - 05/08/2020 Recovery After Procedural Sedation (Adult) You have been given medicine by vein to make you sleep during your surgery. This may have i ncluded both a pain medicine and sleeping medicine. Most of the effects have worn off. But y ou may still have some drowsiness for the next 6 to 8 hours. Home care Follow these guidelines when you get home: For the next 8 hours, you should be watched by a responsible adult. This person should m sandro sure your condition is not getting worse. Don't drink any alcoholfor the next [address], operate dangerous machinery, or make important business or personal decisio nsduring the next 24 hours. Note: Your healthcare provider may tell you not to take any medicine by mouth for pain or s leep in the next 4 hours. These medicines may react with the medicines you were given in the hospital. This could cause a much stronger response than usual. Follow-up care Follow up with your healthcare provider if you are not alert and back to your usual level o f activity within 12 hours. When to seek medical advice Call your healthcare provider right away if any of these occur: Drowsiness gets worse Weakness or dizziness gets worse Repeated vomiting You can't be awakened Fever New rash Tata last reviewed this educational content on 08/17/201619995210-4314 [employer]. [address] [place] [address], [place] [id number]. All righ ts reserved. This information is not intended as a substitute for professional medical care. Always follow your healthcare professional's instructions. FOLLOWING SURGERY: Wear the patch and shield until [...] symptoms, immediately call your eye doctor or [facility] at (dial "9" after hours or [...] + + +---------+ + + | [place] [id number] | as needed | | 0 | [...] BiPAP | 1 each | 0 | 04//20 | | | Therapy Supplies | machine [...] encounter H&P Notes Angel Garcia MD - 05/08/2020 9:32 AM PDTSURGICAL INTERIM HISTORY & PHYSICAL UPDA TE Pt. Name/Age/: Margarita Rowley 54 y.o. 1965 Date of admission: 05/08/2020 The current H&P was reviewed. The patient [...] obtained. 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 Two side ports were made, the capsule stained with trypan blue, and the anterior chamber was filled with viscoe lastic. A keratome was used to create the main wound temporally. Utrata forceps were used fo r a capsulorhexis. After hydrodissection, the lens was phacoemulsified and residual cortex w as aspirated. The artificial lens was placed under viscoelastic which was then removed. The wounds were checked and found to be watertight. Vigamox 0.1cc was placed in the anterior ch shyann. Triamcinolone 3mg was placed in the subconjunctival space. Pilocarpine 1% drops were placed on the eye. A patch and shield were placed over the eye. Postoperative Plan: The patient was sent to recovery in good condition. Complications: none Estimated Blood Loss: none 1 0:00 AM PDTdocumented in this encounter Plan of [...] CAM | | | | | | [place] [address] | | | | | | [phone] | | | | | | | | +--------+ + + + + | 07/23/ | Office | Pulmonology | Helen Astudillo | | | 2019 | Visit | | MD [address] | | | | | | [address] | | | | | | [place] [address] | | | | | | [phone] | | | | | | | [...] Needs | | | | | | Incubator Operator | | | al | | | test | +---+--------+ + +---+ +---+ + | LABS - EXTERNAL SCAN | | 05/05/2020 | | Results for this | | | | 12:00 AM | | procedure are in the | | | | PDT | | results section. | + +---+ +---+ + documented in this encounter Results LABS - EXTERNAL SCAN (05/05/2020 12:00 AM [...] PRN, Wheezing, | | | Starting Galilea 05/08/20 at 1009, For | | | 1 dose, Notify anesthesia if | | [...] PRN, | | | Wheezing, Starting Galilea 05/08/20 at | | | 0801, For 1 dose, Pre-op | | + [...] < 50, | | | Starting Galilea 05/08/20 at 0801, | | | Repeat in 15 min [...] < 50, Starting Galilea | | | 05/08/20 at 1009, Give over 2 min. | | | Repeat in 15 min if blood | | | glucose remains < 70 mg/dL. | | | Repeat blood glucose in 30 min | | | once blood glucose > 70., | | | Recovery/Phase I | | + +---+ | | | + +---+ + +---------+ +---+---+---+ | lactated ringers (LR) infusion | New Bag | 05/08/20 | | | | | at 10-100 mL/hr, Intravenous, | | 20 9:22 | | | | | CONTINUOUS, Starting Galilea 05/08/20 | | AM PDT | | | | | at 0830, TKO., Pre-op | | | | | | + +---------+ +---+---+---+ +---+---+ | | | +---+---+ + +-------+ +--------+---+---+ | lidocaine (AKTEN) 3.5% | Given | 05/08/20 | 1 drop | | | | ophthalmic gel 1 drop 1 drop, | | 20 9:07 | | | | | Left Eye, EVERY 5 MIN PRN, Begin | | AM PDT | | | | | after proparacaine., Starting Galilea | | | | | | | 05/08/20 at 0801, For 2 doses, | | | | | | | Begin 10 minutes prior to | | | | | | | leaving SDS for operating room. | | | | | | | Repeat jelly just prior to | | | | | | | leaving SDS and Q10 minutes until | | | | | | | in the operating room. Keep eye | | | | | | | closed after placing medication., | | | | | | | Pre-op | | | | | | + +-------+ +--------+---+---+ +-------+ +--------+---+---+ | Given | 05/08/20 | 1 drop | | | | | 20 8:22 | | | | | | AM PDT | | | | +-------+ +--------+---+---+ + +---+ | | | + +---+ | ondansetron (ZOFRAN) injection | | | 4 mg 4 mg, Intravenous, EVERY 4 | | | HOURS PRN, Nausea, Vomiting, | | | Starting Galilea 05/08/20 at 1009, | | | Recovery/Phase I | | + +---+ | | | + +---+ + +-------+ +--------+---+---+ | phenylephrine (JETT-SYNEPHRINE) | Given | 05/08/20 | 1 drop | | | | 2.5% ophthalmic solution 1 drop | | 20 9:06 | | | | | 1 drop, Left Eye, EVERY 5 MIN | | AM PDT | | | | | PRN, prep eye for procedure, | | | | | | | Starting Galilea 05/08/20 at 0801, For | | | | | | | 3 doses, Remind patient to keep | | | | | | | eye closed after placing each eye | | | | | | | drop., Pre-op | | | | | | + +-------+ +--------+---+---+ +-------+ +--------+---+---+ | Given | 05/08/20 | 1 drop | | | | | 20 8:30 | | | | | | AM PDT | | | | +-------+ +--------+---+---+ | Given | 05/08/20 | 1 drop | | | | | 20 8:22 | | | | | | AM PDT | | | | +-------+ +--------+---+---+ +---+---+ | | | +---+---+ + +-------+ +--------+---+---+ | proparacaine (ALCAINE) 0.5% | Given | 05/08/20 | 1 drop | | | | ophthalmic solution 1 drop 1 | | 20 8:22 | | | | | drop, Left Eye, ONCE, [facility] 05/08/20 | | AM PDT | | | | | at 0830, For 1 dose, After | | | | | | | placing anesthetic, keep eye | | | | | | | closed except for when placing | | | | | | | additional medications. All other | | | | | | | drops/gel should follow this | | | | | | | drop., Pre-op | | | | | | + +-------+ +--------+---+---+ +---+---+ | | | +---+---+ + +-------+ +--------+---+---+ | tropicamide (MYDRIACYL) 1% | Given | 05/08/20 | 1 drop | | | | ophthalmic solution 1 drop 1 | | 20 9:07 | | | | | drop, Left Eye, EVERY 5 MIN PRN, | | AM PDT | | | | | prep eye for procedure, Starting | | | | | | | [facility] 05/08/20 at 0801, For 3 doses, | | | | | | | Remind patient to keep eye closed | | | | | | | after placing each eye drop., | | | | | | | Pre-op | | | | | | + +-------+ +--------+---+---+ +-------+ +--------+---+---+ | Given | 05/08/20 | 1 drop | | | | | 20 8:30 | | | | | | AM PDT | | | | +-------+ +--------+---+---+ | Given | 05/08/20 | 1 drop | | | | | 20 8:22 | | | | | | AM PDT | | | | +-------+ +--------+---+---+ +---+---+ | | | +---+---+ documented in this encounter
--- OUTSIDE RECORDS SUMMARY | ~2020-07-11 | XMS | Encounter Summary ---
Demographics + + + | Address | [address] | | | [place] [address] | + + + | Home Phone [...] + | [employer] | ECON | [phone] | | | | | Unknown | | + + + + + Care Team Providers + +------+ + | Care Overhead Door Technician Name | Role | Phone | + +------+ + | Yuni Shrestha | PCP | | + +------+ + Encounter Details +--------+ + + + + | Date | Type | Department | Care Team | Description | +--------+ + + + + | 02/01/ | Hospital | [facility] | Scout Arthur, | Lung nodule | | 2017 | Encounter | MED CTR XRAY [address] | [address] | | | | | [place] | [place] [address] | | | | | [place] [address] | [phone] | | | | | [phone] | | | +--------+ + + + [...] + + + +---------+ + + | [place] [facility] POWD | by Does not apply [...] | | | | | [place] [address] | | | | | | [phone] | | | | | | | | +--------+ + + + + | 07/23/ | Office | Pulmonology | Helen Astudillo | | | 2019 | Visit | | MD [address] | | | | | | [address] [place] | | | | | | [place] [address] | | | | | | [phone] | | | | | | | [...] FINDINGS: Frontal and lateral views of | [place] | | the chest. Lungs: No [...] + + + | [facility] | [address] | [place] | [phone] | | [facility] | | [address] | | | - IMAGING | | | | + + + + + documented in this encounter Visit Diagnoses + + | Diagnosis | + + | Lung nodule Solitary pulmonary nodule | + + documented in this encounter"
--- OUTSIDE RECORDS SUMMARY | ~2020-07-11 | XMS | Encounter Summary ---
Demographics + + + | Address | [address] | | | [place] [address] | + + + | Home Phone [...] + | [employer] | ECON | [id number] | | | | | Unknown | | + + + + + Care Team Providers + +------+ + | Care Metal Roaster Name | Role | Phone | + +------+ + | Gela Trimble NP | PCP | | + +------+ + Reason for Visit +--------+--------+ + | Reason | Onset | Comments | | | Date | | +--------+--------+ + | Other | 08/13/ | BIPAP order | | | 2013 | | +--------+--------+ + Encounter Details +--------+ + + + + | Date | Type | Department | Care Team | Description | +--------+ + + + + | 08/13/ | Telephone | [facility] | Tarah Nino, | Other (BIPAP order) | | 2012 | | PULMONARY [address] | RN | | | | | [place], | | | | | | [place] [address] | | | | | | [phone] | | | +--------+ + + + [...] Telephone Encounter - Tarah Nino RN - 08/13/2013 3:10 PM PDTCalled and talked to Fede murdock's caregiver and advised per Dr Lainez that will be ordering a BIPAP ST with O2 bleed in. Order [facility] to [facility] to [facility]. documented in [...] [place] | | | | | | [place] [address] | | | | | | [phone] | | | | | | | | +--------+ + + + + | 07/23/ | Office | Pulmonology | Helen Astudillo | | | 2019 | Visit | | MD [address] | | | | | | [address] [place] | | | | | | [place] [address] | | | | | | [phone] | | | | | | | | +--------+ + + + + documented as of this encounter Visit Diagnoses + + | Diagnosis | + + | Obstructive sleep apnea (adult) (pediatric) - Primary | + + documented in this encounter"
--- OUTSIDE RECORDS SUMMARY | ~2020-07-11 | XMS | Encounter Summary ---
Demographics + + + | Address | [address] | | | [place] [address] | + + + | Home Phone [...] + | [employer] | ECON | [id number] | | | | | Unknown | | + + + + + Care Team Providers + +------+ + | Care Pig Farmer Name | Role | Phone | [...] | Pulmonology | Diagnoses | Fady, | Jerson | | | | | Chronic | Yuni Schafer, | Scout Mistry MD | | | | | obstructive | SERVICE DESK AGENT [address] | [address] | | | | | pulmonary | [address] | [place], [place] | | | | | disease, | [place], | [address] | | | | | unspecified | [place] [address] | Phone: | | | | | ([facility]) | Phone: | [phone] | | | | | Procedures | [phone] | Fax: | | | | | F/U APPT | Fax: | [phone] | | | | | SCOUT | [phone] | | | | | | JERSON | | | | | | | 02/21/18 | | | +--------+--------+ + + + + Encounter Details +--------+---------+ + + + | Date | Type | Department | Care Team | Description | +--------+---------+ + + + | 02/21/ | Office | [facility] | Scout Arthur, | Pulmonary | | 2018 | Visit | PULMONARY [address] | hypertension, | | | | [place], | [place] [address] | unspecified ([facility]) | | | | [place] [address] | [phone] | (Primary Dx) | | | | [phone] | | | +--------+---------+ + + + [...] had been diagnosed prior to that at [facility] in [place] by Dr. Lashae Rivera whose excellent notes helped me figure out what was going on. The pancho coley had a prior history of some methamphetamine. [...] She is not taking spironolactone. See the [facility] ed section for medications. She had an [...] from [facility]. We spent 25 minutes [id number], at least half in counseling. Word processing [...] | | | | | | [place] [address] | | | | | | [phone] | | | | | | | | +--------+ + + + + | 07/23/ | Office | Pulmonology | Helen Astudillo | | | 2019 | Visit | | MD Vikash [address] | | | | | | [address] [place] | | | | | | [place] [address] | | | | | | [phone] | | | | | | | | +--------+ + + + + documented as of this encounter Visit Diagnoses + + | Diagnosis | + + | Pulmonary hypertension, unspecified (HCC) - Primary | + + documented in this encounter
--- OUTSIDE RECORDS SUMMARY | ~2020-07-11 | XMS | Encounter Summary ---
Demographics + + + | Address | [address] | | | [place] [address] | + + + | Home Phone [...] + | [employer] | ECON | [phone] | | | | | Unknown | | + + + + + Care Team Providers + +------+ + | Care Stationary Engineer Name | Role | Phone | [...] | | | | | | [place] [address] | | | | | | [phone] | | | +--------+ + + + [...] | | | | | | [place] [address] | | | | | | [phone] | | | | | | | | +--------+ + + + + | 07/23/ | Office | Pulmonology | Helen Astudillo | | | 2019 | Visit | | MD [address] | | | | | | [address] [place] | | | | | | [place] [address] | | | | | | [phone] | | | | | | | [...] | | Test, | | | [facility] | | | Urine, POC | | [...] + | OLIVA HOFFMAN. | [address] | [place] | [phone] | | [facility] | | [address] | | | - LABORATORY | | | | + + + + + documented in this encounter Visit Diagnoses Not on filedocumented in this encounter"
--- OUTSIDE RECORDS SUMMARY | ~2020-07-11 | XMS | Encounter Summary ---
Demographics + + + | Address | [address] | | | [place] [address] | + + + | Home Phone [...] | Organization | [facility] | | | and [place] | + + + | Address | Unknown | + + + | Phone | Unavailable | + + + Support + + + + + | Name | Relationship | Address | Phone | + + + + + | [employer] | ECON | [phone] | | | | | Unknown | | + + + + + Care Team Providers + +------+ + | Care Corporate Counselor Name | Role | Phone | + +------+ + | Gela Trimble NP | PCP | | + +------+ + Encounter Details +--------+ + + + + | Date | Type | Department | Care Team | Description | +--------+ + + + + | 07/30/ | Hospital | [facility] | [place], | | | 2012 | Encounter | MED CTR SLEEP | Vera Farrar MD | | | | | [address] | | | | | | [place] | | | | | | [address] | | | | | | [phone] | | | +--------+ + + + [...] | | 0 | + + + +---------+--------+ + | [...] | | 0 | + + + +---------+--------+ + | miconazole | Place 1 applicator | | 0 | | | | (MICONAZOLE 7) 2% | vaginally 2 times | | | | 3 | | vaginal cream | daily. | | | | | + + + +---------+--------+ + | [place]-3 Fatty | Take by mouth. | | [...] | | | | | [place] [address] | | | | | | [phone] | | | | | | | | +--------+ + + + + | 07/23/ | Office | Pulmonology | Helen Astudillo | | 2019 | Visit | | MD [address] | | | | | | [address] [place] | | | | | | [place] [address] | | | | | | [phone] | | | | | | | | +--------+ + + + + documented as of this encounter Visit Diagnoses Not on filedocumented in this encounter"
--- OUTSIDE RECORDS SUMMARY | ~2020-07-11 | XMS | Encounter Summary ---
Demographics + + + | Address | [address] | | | [place] [address] | + + + | Home Phone [...] + | [employer] | ECON | [phone] | | | | | Unknown | | + + + + + Care Team Providers + +------+ + | Care Room Service Clerk Name | Role | Phone | + +------+ + | Yuni Shrestha | PCP | | + +------+ + Encounter Details +--------+ + + + + | Date | Type | Department | Care Team | Description | +--------+ + + + + | 05/05/ | Orders Only | [facility] [place] | [place], | Primary pulmonary | | 2016 | | PULMONARY [address] | Vera Farrar MD | hypertension (HCC); | | | | [place], | | High risk medication | | | | [place] [address] | | use | | | | [phone] | | | +--------+ + + + [...] [place] | | | | | | [place] [address] | | | | | | [phone] | | | | | | | | +--------+ + + + + | 07/23/ | Office | Pulmonology | Helen Astudillo | | | 2020 | Visit | | MD [address] | | | | | | [address] [place] | | | | | | [place] [address] | | | | | | [phone] | | | | | | | [...]
--- OUTSIDE RECORDS SUMMARY | ~2020-07-11 | XMS | Encounter Summary ---
Demographics + + + | Address | [address] | | | [place] [address] | + + + | Home Phone [...] + | [employer] | ECON | [phone] | | | | | Unknown | | + + + + + Care Team Providers + +------+ + | Care Bending Machine Set Up Operator Name | Role | Phone | [...] + + | 05/22/ | Office | [facility] | Jacky Calderon PA | Primary central | | 2015 | Visit | SLEEP DISORDER [address] | [address] | sleep apnea (Primary | | | | [address] [place] | [place] | Dx) | | | | [place] [address] | [address] | | | | | [phone] | | | +--------+---------+ + + + [...] was: 05/21/2014 date of polysomnography: 03/13/2013 at [facility] AHI: 64.2 O2%: n/a Machine type: Respironics BiPAP Auto with ResMed Quattro FX full face mask obtained from: [employer] in [place] pressure: 16/5 cm with backup rate of [...] year, sooner prn. Fifteen minutes were spent [id number]-pb-fzre, with the majority of time spent in [...] | | | | | [place] [address] | | | | | | [phone] | | | | | | | | +--------+ + + + + | 07/23/ | Office | Pulmonology | Helen Astudillo | | 2019 | Visit | | MD [address] | | | | | | [address] | | | | | | [place] [address] | | | | | | [phone] | | | | | | | | +--------+ + + + + documented as of this encounter Visit Diagnoses + + | Diagnosis | + + | Primary central sleep apnea - Primary | + + documented in this encounter"
--- OUTSIDE RECORDS SUMMARY | ~2020-07-11 | XMS | Encounter Summary ---
Demographics + + + | Address | [address] | | | [place] [address] | + + + | Home Phone [...] + | [employer] | ECON | [phone] | | | | | Unknown | | + + + + + Care Team Providers + +------+ + | Care Book Trimmer Name | Role | Phone | + +------+ + | Yuni Shrestha | PCP | | + +------+ + Reason for Visit +---------+--------+ + | Reason | Onset | Comments | | | Date | | +---------+--------+ + | Results | 08/21/ | nocturnal oximetry | | | 2015 | | +---------+--------+ + Encounter Details +--------+ + + + + | Date | Type | Department | Care Team | Description | +--------+ + + + + | 08/21/ | Telephone | [facility] [place] | [place], | Results (nocturnal | | 2014 | | PULMONARY [address] | Vera Farrar MD | oximetry) | | | | [place], | | | | | | [place] [address] | | | | | | [phone] | | | +--------+ + + + [...] Telephone Encounter - Tarah Nino, RN - 08/21/2015 1:34 PM PDTCalled Margarita's caregi gricelda Marry and advised that Dr Lainez is recommending that Margarita increase her nocturna l O2 to 6 l/m through the BIPAP and have a repeat nocturnal pulse oximetry as her O2 sat was below 88% for 315.4 minutes. Okay per Marry. Orders sent to [facility] y signed by Tarah Nino RN at 08/21/2015 1:51 PM PDTdocumented in this encounter Plan of [...] | | | | | [place] [address] | | | | | | [phone] | | | | | | | | +--------+ + + + + | 07/23/ | Office | Pulmonology | Helen Astudillo | | | 2019 | Visit | | MD Vikash [address] | | | | | | [address] [place] | | | | | | [place] [address] | | | | | | [phone] | | | | | | | [...]
--- OUTSIDE RECORDS SUMMARY | ~2020-07-11 | XMS | Encounter Summary ---
Demographics + + + | Address | [address] | | | [place] [address] | + + + | Home Phone [...] | Organization | [facility] | | | and [place] | + + + | Address | Unknown | + + + | Phone | Unavailable | + + + Support + + + + + | Name | Relationship | Address | Phone | + + + + + | [employer] | ECON | [id number] | | | | | Unknown | | + + + + + Care Team Providers + +------+ + | Care Manager Ambulatory Name | Role | Phone | + [...] | Primary | Offenstein, | [address] | | | | | pulmonary | Vera B, | [place], | | | | | hypertension | MD [address] | [place] | | | | | ([facility]) | [address] | [address] | | | | | Procedures | [place], | Phone: | | | | | [place] | [place] [address] | [phone] | | | | | Complete | | Fax: | | | | | | | [phone] | +--------+--------+ + + + + Reason [...] | Primary | Offenstein, | [address] | | | | | pulmonary | Vera B, | [place], | | | | | hypertension | MD [address] | [place] | | | | | ([facility]) | [address] | [address] | | | | | Procedures | [place], | Phone: | | | | | [place] | [place] [address] | [phone] | | | | | Complete | | Fax: | | | | | | | [phone] | +--------+--------+ + + + + Encounter Details +--------+ + + + + | Date | Type | Department | Care Team | Description | +--------+ + + + + | 09/11/ | Hospital | [facility] | Offenstein, | Primary pulmonary | | 2013 | Encounter | [facility] [address] | Vera Farrar MD | hypertension | | | | [address] [place] | Taya Kirby, | | | | | [place] [address] | Technologist | | | | | [phone] | | | +--------+ + + + [...] | | | | | | ([facility]) | | | | | [...] + + + +---------+ + + | [place] Starch POWD | by Does not apply [...] + + + +---------+ + + | [place]-3 Fatty | Take by mouth. | | [...] | | | | | [place] [address] | | | | | | [phone] | | | | | | | | +--------+ + + + + | 09/23/ | Office | Pulmonology | Helen Astudillo | | | 2019 | Visit | | MD Vikash [address] | | | | | | [address] [place] | | | | | | [place] [address] | | | | | | [phone] | | | | | | | [...] | + + + | [facility] ECHOCARDIOGRAM REPORT | KAMRYNDIALLO | | STUDY DATE: 09/11/2014 PATIENT NAME: Margarita Rowley : | [facility] | | 1965 PCP: Gela Trimble NP | [facility] | | CLINICAL HISTORY/DIAGNOSIS: Pulmonary hypertension A [...] S. | | | Ananth Salguero MD [facility] 09/11/2014 10:45 | | | Asphalt Paving Foreman: Hung Caro, RDCS, RVT, RDMS | | + + + + + | Procedure Note | + + | Roberto Salguero MD - 09/12/2014 9:12 AM [facility] | | CENTERECHOCARDIOGRAM REPORTSTUDY DATE: 09/11/2014PATIENT NAME: Margarita Lugo Vielka: | | 1965MRN: [id number]: Gela Trimble, NPCLINICAL HISTORY/DIAGNOSIS: | | Pulmonary hypertensionA transthoracic [...] PP mmHgLA volume: 30 mLLA index: 16 mL/c9Mchrgr Inflow DT: 272 | | msIVRT: 110 msValsalva: Not neededPWDTI S wave: 7.2 cm/sPWDTI E wave: 8.0 cm/sPWDTI | | A wave: 10.4 cm/sE/A Ratio: 0.769E/E Ratio: 10.63Signed by: Artie Salguero MD | | PhD FACC 09/11/2014 10:45 Asphalt Paving Foreman: Hung Caro, RDCS, RVT, RDMS | |Tricuspid [...] 09/11/2014 10:45 | | | | | |Asphalt Paving Foreman: Hung Caro, JUANITOCS, RVT, RDMS | + + + + + + + | Performing | Address | City/State/Zipcode | Phone Number | | Organization | | | | + + + + + | [address] | [address] | [place] | [phone] | | [facility] | | [address] | | | - IMAGING | | [...]
--- OUTSIDE RECORDS SUMMARY | ~2020-07-11 | XMS | Encounter Summary ---
Demographics + + + | Address | [address] | | | [place] [address] | + + + | Home Phone [...] + + | Organization | [facility] | | | and [place] | + + + | Address | Unknown | + + + | Phone | Unavailable | + + + Support + + + + + | Name | Relationship | Address | Phone | + + + + + | [employer] | [place] | [id number] | | | | | Unknown | | + + + + + Care Team Providers + +------+ + | Care Location Man Name | Role | Phone | [...] | apnea; Hypoxemia | | | | [place], | | | | | | [place] [address] | | | | | | [phone] | | | +--------+ + + + [...] | | | | | [place] [address] | | | | | | [phone] | | | | | | | | +--------+ + + + + | 07/23/ | Office | Pulmonology | Helen Astudillo | | | 2019 | Visit | | MD Joey [address] | | | | | | [address] [place] | | | | | | [place] [address] | | | | | | [phone] | | | | | | | | +--------+ + + + + documented as of this encounter Visit Diagnoses + + | Diagnosis | + + | Obstructive sleep apnea Obstructive sleep apnea (adult) (pediatric) | + + | Hypoxemia | + + documented in this encounter"
--- OUTSIDE RECORDS SUMMARY | ~2020-07-11 | XMS | Encounter Summary ---
Demographics + + + | Address | [address] | | | [place] [address] | + + + | Home Phone [...] + | [employer] | ECON | [id number] | | | | | Unknown | | + + + + + Care Team Providers + +------+ + | Care Wick Tender Name | Role | Phone | [...] | | | | ABDIRASHID BROTHERS | [facility] [place] | | | | | [place] | [address] | | | | | [address] | [phone] | | | | | [phone] | | | +--------+ + + + [...] | | | | | [place] [address] | | | | | | [phone] | | | | | | | | +--------+ + + + + | 07/23/ | Office | Pulmonology | Helen Astudillo | | | 2019 | Visit | | MD [address]Jey Su[address] W | | | | | | [address] [place] | | | | | | [place] [address] | | | | | | [phone] | | | | | | | | +--------+ + + + + documented as of this encounter Visit Diagnoses Not on filedocumented in this encounter"
--- OUTSIDE RECORDS SUMMARY | ~2020-07-11 | XMS | Encounter Summary ---
Demographics + + + | Address | [address] | | | [place] [address] | + + + | Home Phone [...] Author + + + | Author | [facility] | | | and [place] | + + + | Organization | [facility] | | | and [place] | + + + | Address | Unknown | + + + | Phone | Unavailable | + + + Support + + + + + | Name | Relationship | Address | Phone | + + + + + | [employer] | ECON | [id number] | | | | | Unknown | | + + + + + Care Team Providers + +------+ + | Care Automotive Painter Name | Role | Phone | + [...] | hypertension (HCC) | | | | [place], | | | | | | [place] [address] | | | | | | [phone] | | | +--------+ + + + [...] | | | | | [place] [address] | | | | | | [phone] | | | | | | | | +--------+ + + + + | 07/23/ | Office | Pulmonology | Helen Astudillo | | | 2019 | Visit | | MD [address] | | | | | | [address] [place] | | | | | | [place] [address] | | | | | | [phone] | | | | | | | | +--------+ + + + + documented as of this encounter Visit Diagnoses + + | Diagnosis | + + | Pulmonary hypertension (HCC) Other chronic pulmonary heart diseases | + + documented in this encounter"
--- OUTSIDE RECORDS SUMMARY | ~2020-07-11 | XMS | Encounter Summary ---
Demographics + + + | Address | [address] | | | [place] [address] | + + + | Home Phone [...] + | [employer] | ECON | [id number] | | | | | Unknown | | + + + + + Care Team Providers + +------+ + | Care Inset Cutter Name | Role | Phone | [...] [address] | | | | | [address] [place], [place] | [place], [place] | | | | | [address] | [address] | | | | | [phone] | | | +--------+--------+ + + + [...] | | | | | [place] [address] | | | | | | [phone] | | | | | | | | +--------+ + + + + | 07/23/ | Office | Pulmonology | Helen Astudillo | | | 2019 | Visit | | MD [address] | | | | | | [address] | | | | | | [place] [address] | | | | | | [phone] | | | | | | | | +--------+ + + + + documented as of this encounter Visit Diagnoses Not on filedocumented in this encounter"
--- OUTSIDE RECORDS SUMMARY | ~2020-07-11 | XMS | Encounter Summary ---
Demographics + + + | Address | [address] | | | [place] [address] | + + + | Home Phone [...] + | [employer] | ECON | [id number] | | | | | Unknown | | + + + + + Care Team Providers + +------+ + | Care Operations Staff Specialist Security Name | Role | Phone | + [...] | | [place] | [place] [address] | | | | | [address] | [phone] | | | | | [phone] | | | +--------+---------+ + + + [...] symptoms, immediately call your eye doctor or [facility] at (dial "9" after hours or on [...] + + +---------+ + + | [place] [id number] | as needed | | 0 | [...] Angel Garcia MD, 05/22/2020 2:10 PM PDT [facility] documented in t his encounter Miscellaneous Notes Op Note - Angel Garcia MD - 05/22/2020 3:12 PM PDTPre-op Diagnosis: 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), right eye Post-op Diagnosis: same Procedure: Cataract extraction by phacoemulsification with intraocular lens implant, right eye (51990) Implant: J&J PCB00 23.0 D, SN [id number] Surgeon: Angel Garcia MD Anesthesia: Monitored Anesthesia [...] | | | | | | [address] | | | | | | [place] [address] | | | | | | [phone] | | | | | | | | +--------+ + + + + | 07/23/ | Office | Pulmonology | Helen Astudillo | | | 2019 | Visit | | MD Vikash [address] | | | | | | [address] [place] | | | | | | [place] [address] | | | | | | [phone] | | | | | | | [...] ONCE PRN, Wheezing, | | | Starting [facility] 05/22/20 at 1521, | | | [...] ONCE PRN, | | | Wheezing, Starting [facility] 05/22/20 at | | | 1324, For 1 dose, Pre-op | | + +---+ | | | + +---+ + +-------+ + +---+ + | balanced salts sterile | Given | 05/22/20 | 1 | | Surgical | | ophthalmic irrigation solution | | 20 2:57 | Applicat | | Site | | PRN, Starting [facility] 05/22/20 at | | PM PDT [...] | | | | | PRN, Starting [facility] 05/22/20 at | | | | [...] glucose < 50, | | | Starting [facility] 05/22/20 at 1324, | | | [...] 1 | | Surgical | | (uro-jet) PRN, Starting Galilea | | 20 2:55 | [...] | | | t | | Starting [facility] 05/22/20 at 1458, | | PM PDT | | | | | Intra-op | | | | | | + +-------+ +--------+---+ + + +---+ | | | + +---+ | ondansetron (ZOFRAN) injection | | | 4 mg 4 mg, Intravenous, EVERY 4 | | | HOURS PRN, Nausea, Vomiting, | | | Starting [facility] 05/22/20 at 1521, | | | [...] | | | | solution PRN, Starting Tue | | 20 2:45 | | | [...] | | | | | Incision, Starting [facility] 05/22/20 at | | | | [...] | | Site | | PRN, Starting Tue05/22/20 at | | PM PDT | | [...] | | | | | Incision, Starting [facility] 05/22/20 at | | | | [...]
--- OUTSIDE RECORDS SUMMARY | ~2020-07-11 | XMS | Encounter Summary ---
Demographics + + + | Address | [address] | | | [place] [address] | + + + | Home Phone [...] + | [employer] | ECON | [id number] | | | | | Unknown | | + + + + + Care Team Providers + +------+ + | Care Fermentation Operator Name | Role | Phone | [...] | 2018 | | [address] | [address]ERRICK [address] | | | | | [address] | [address] | | | | | [place], [place] | [place] [address] | | | | | [address] | [phone] | | | | | [phone] | | | +--------+ + + + [...] | | | | | | [place] [address] | | | | | | [phone] | | | | | | | | +--------+ + + + + | 07/23/ | Office | Pulmonology | Baudilio Helen | | | 2020 | Visit | | MD [address] | | | | | | [address] [place] | | | | | | [place] [address] | | | | | | [phone] | | | | | | | [...] | | | 0.80 m/s MV Dec [place]: 2.28 m/s2 MV DecT: 328.32 ms MV [...] TR Vmax: 3.20 m/s | | | Manager Union: JERRI Authenticated by: Vern Boston Report | [...] cmLVPWd: | | 0.71 cmLVOT Area: 2.68 ve1KXEH Diam: 1.84 cm%FS: 48.21 %EF(Teich): 79.87 | | %ESV(Teich): 16.84 mlLVIDs: 2.23 cmSV(Teich): 66.85 mlRVIDd: 2.99 cmLVEF MOD | | A4C: 62.52 %SV MOD A4C: 57.86 mlLVEDV MOD A4C: 92.54 mlLVLd A4C: 7.40 cmLVESV | | MOD A4C: 34.68 mlLVLs A4C: 6.14 cmLAESV(A-L): 40.81 mlLAESV Index (A-L): 23.05 | | ml/m2LAAs A2C: 16.03 ju7QNJBP A-L A2C: 43.10 mlLALs A2C: 5.06 cmLAAs A4C: 14.91 | | sc1KASPH A-L A4C: 37.94 mlLALs A4C: 4.97 cmRAAs: 14.88 hb5PSVHM A-L: 41.10 | | mlRAESV MOD: 39.25 mlRALs: 4.57 cmTAPSE: 2.21 cmAV maxP.90 mmHgAV meanPG: | | 6.42 mmHgAV Vmax: 1.72 m/Augustus Vmean: 1.18 m/Augustus VTI: 29.25 cmAVA Vmax: 2.30 | | cm2AVA (VTI): 2.65 zy3ATNM (Vmax): 0.00 cm2/m2AVAI (VTI): 0.00 cm2/m2LVOT maxPG: | | 8.77 mmHgLVOT meanP.18 mmHgLVSI Dopp: 43.93 ml/m2LVSV Dopp: 77.77 mlLVOT | | Vmax: 1.48 m/sLVOT Vmean: 0.92 m/sLVOT VTI: 28.95 cmMV A Royal: 0.80 m/sMV Dec | | Prairie: 2.28 m/s2MV DecT: 328.32 msMV E Royal: 0.75 m/sMV E/A Ratio: 0.93MV PHT: | | 95.21 msMVA By PHT: 2.31 eo0Dqsnhs e': 0.04 m/sSeptal E/e': 15.90Lateral e': | | 0.08 m/sLateral E/e': 8.87RAP: 5 mmHgRVSP: 46.05 mmHgTR maxP.05 mmHgTR | | Vmax: 3.20 m/s Manager Union: JERRIAuthenticated by: Vern Joseph Date/Time: | | [...] A Royal: 0.80 m/s | |MV Dec Prairie: 2.28 m/s2 | |MV DecT: 328.32 ms [...] |TR Vmax: 3.20 m/s | | | |Manager Union: DBS | |Authenticated by: Vern Boston | [...]
--- OUTSIDE RECORDS SUMMARY | ~2020-07-11 | XMS | Encounter Summary ---
Demographics + + + | Address | [address] | | | [place] [address] | + + + | Home Phone [...] + | [employer] | ECON | [id number] | | | | | Unknown | | + + + + + Care Team Providers + +------+ + | Care Oracle Application Architect Name | Role | Phone | + [...] | hypertension (HCC) | | | | [place], | [place] [address] | (Primary Dx) | | | | [place] [address] | [phone] | | | | | [phone] | | | +--------+ + + + [...] | | | | | | [place] [address] | | | | | | [phone] | | | | | | | | +--------+ + + + + | 07/23/ | Office | Pulmonology | Helen Astudillo | | | 2019 | Visit | | MD [address] | | | | | | [address] [place] | | | | | | [place], [place] [address] | | | | | | [phone] | | | | | | | [...]
--- OUTSIDE RECORDS SUMMARY | ~2020-07-11 | XMS | Encounter Summary ---
Demographics + + + | Address | [address] | | | [place] [address] | + + + | Home Phone [...] Author + + + | Author | [facility] | + + + | Organization | [facility] | + + + | Address | Unknown | + + + | Phone | Unavailable | + + + Support + + +---------+ + | Name | Relationship | Address | Phone | + + +---------+ + | Lidia Thibodeaux | ECON | Unknown | | + + +---------+ + Care Team Providers + +------+ + | Care Meal Miller Name | Role | Phone | + [...] | | | | | Floor | [place], [place] | | | | | | [place], [place] | [address] | | | | | | [address] | Phone: | | | | | | Phone: | [phone] | | | | | | [phone] | Fax: | | | | | | Fax: | [phone] | | | | | | [phone] | | +--------+--------+ + + + + Encounter Details +--------+ + + + + | Date | Type | Department | Care Team | Description | +--------+ + + + + | 03/27/ | Outside | Neurophysiology | Mustapha Vidal, | | | 2012 | Referral | EEG at [facility] [address] | [place] | | | | Order | [facility] | [facility] [address] | | | | | [address] [facility] | [address] | | | | | [place], [address] Floor | [place] [address] | | | | | [place], [place] | [phone] | | | | | [address] | | | | | | [phone] | | | +--------+ + + + [...] 1965 Medical | | | Record Number: [id number] Date of Test: 03/27/2013 Place of | | [facility] Department: EEG [facility] - [id number] | | | ROUTINE EEG - [facility] Reason for Exam: Evaluate for | [...] | Clinical Events: No pushbutton events or cad technician notes of unusual | | | [...] Laws M.D. | | | Suggested CPT: 47580 - EEG Routine Awake & Asleep Suggested Dx: | | | 780.39-Convulsions | | + + + documented in this encounter Visit Diagnoses Not on filedocumented in this encounter"
--- OUTSIDE RECORDS SUMMARY | ~2020-07-11 | XMS | Encounter Summary ---
Demographics + + + | Address | [address] | | | [place] [address] | + + + | Home Phone [...] + | [employer] | ECON | [id number] | | | | | Unknown | | + + + + + Care Team Providers + +------+ + | Care Industrial Maintenance Repairer Name | Role | Phone | [...] | | | Pulmonology | airway | MEDICAL COST CONSULTANT [address] | MD | | | | | obstruction, | [place] | | | | | | not | [address] | | | | | | elsewhere | [place], | | | | | | classified | [place] [address] | | | | | | Obstructive | Phone: | | | | | | sleep apnea | [phone] | | | | | | (adult) | Fax: | | | | | | (pediatric) | [phone] | | | | | | Procedures [...] | Visit | PULMONARY [address] | Vear Farrar MD | hypertension | | | | [place], | | (Primary Dx); COPD | | | | [place] [address] | | (chronic obstructive | | | | [phone] | | pulmonary disease); | | | [...] appoin tment to see Dr. Rivera in [place] at [facility]. I will get updated labs from Gela and if we need to add anything, I will send orders to [facility]. Okay to liberalize fluid intake to 2500 [...] goes. You can find these inexpensively at [facility]. Turn the humidity up on your CPAP to 5. Ask the [employer] [facility] for a humidifier for the oxygen concentrator if you don't have one. [place] nasal saline spray in your nose several [...] Years of Education: N/A Occupational History Disabled. [employer] Social History Main Topics Smoking status: Former Smoker -- 1.00 packs/day for 20 years Types: Cigarettes Quit date: 12/10/2014 Smokeless tobacco: None Comment: restarted in August 2014, quit again 12/10/14 Alcohol Use: Yes Comment: history of abuse Drug Use: Yes Special: Cocaine Comment: history of cocaine use Sexual Activity: None Other Topics Concern None Social History Narrative Lives at [facility]. Allergies: Allergies Allergen Reactions Erythromycin Metronidazole Penicillins [...] Take 2,000 Units by mouth Daily. [place] Starch POWD by Does not apply route [...] mg onto the skin every 24 hours. [place]-3 Fatty Acids (SEA-OMEGA 30) 1200 MG CAPS [...] only during the daytime. Rechecked at [facility] t visit. They are not having issues with low saturations. 6. Sleep related hypoxemia - On oxygen 5L bled in to her BiPAP machine. Plan 1. Follow up appointment to see Dr. Rivera in [place] at [facility]. 2. I will get updated labs from Gela and if we need to add anything, I will send orders to [facility]. 3. Okay to liberalize fluid intake [...] if they don't h ave one. 8. [place] nasal saline spray in her nose several [...] made to ensure accuracy; however, inadvertent computerized television cameraman errors may be pre sent. documented in [...] | | | | | [place] [address] | | | | | | [phone] | | | | | | | | +--------+ + + + + | 07/23/ | Office | Pulmonology | Helen Astudillo | | | 2019 | Visit | | MD [address] | | | | | | [address] | | | | | | [place] [address] | | | | | | [phone] | | | | | | | [...]
--- OUTSIDE RECORDS SUMMARY | ~2020-07-11 | XMS | Encounter Summary ---
Demographics + + + | Address | [address] | | | [place] [address] | + + + | Home Phone [...] + | [employer] | ECON | [id number] | | | | | Unknown | | + + + + + Care Team Providers + +------+ + | Care Older Adult Social Work Specialist Name | Role | Phone | [...] | Telephone | [facility] [place] | [facility], | Referral | | 2015 | | GASTROENTEROLOGY | BRITTANY Maddox [address] | | | | | [address] [place] | [address] | | | | | [address] [place], [place] | [place], [place] | | | | | [address] | [address] | | | | | [phone] | | | +--------+ + + + [...] 07/06/2016 11:45 AM PDTSpoke with Martha davila [facility] who is one of patient's caretakers at [phone]. Explained that PCP will need to ref [...] since cell number listed is one of [employer]'s [employer] cell number; replace with [phone]. Electronically signed by Katheryn Garber RN at [...] | 2019 | | | MD Joey [address] | | | | | | [address] [place] | | | | | | [place] [address] | | | | | | [phone] | | | | | | | | +--------+ + + + + | 07/23/ | Office | Pulmonology | Helen Astudillo | | | 2019 | Visit | | MD Joey [address] | | | | | | [address] [place] | | | | | | [place] [address] | | | | | | [phone] | | | | | | | | +--------+ + + + + documented as of this encounter Visit Diagnoses Not on filedocumented in this encounter"
--- OUTSIDE RECORDS SUMMARY | ~2020-07-11 | XMS | Encounter Summary ---
Demographics + + + | Address | [address] | | | [place] [address] | + + + | Home Phone [...] + | [employer] | ECON | [id number] | | | | | Unknown | | + + + + + Care Team Providers + +------+ + | Care Warehouse Worker 2Nd Shift Name | Role | Phone | + +------+ + PCP | Unavailable | + +------+ + Encounter Details +--------+ + + + + | Date | Type | Department | Care Team | Description | +--------+ + + + + | 03/13/ | Hospital | [facility] | Juliana Angeles | | | 2011 | Encounter | HOSPITAL OBSTETRICS | [address] | | | | | [address] | [address] | | | | | [place], [place] | [place], [place] | | | | | [address] | [address] | | | | | [phone] | [phone] | | | | | | | [...] | | | | | [place] [address] | | | | | | [phone] | | | | | | | | +--------+ + + + + | 07/23/ | Office | Pulmonology | Helen Astudillo | | | 2019 | Visit | | MD [address] | | | | | | [address] [place] | | | | | | [place] [address] | | | | | | [phone] | | | | | | | | +--------+ + + + + documented as of this encounter Visit Diagnoses Not on filedocumented in this encounter"
--- OUTSIDE RECORDS SUMMARY | ~2020-07-11 | XMS | Encounter Summary ---
Demographics + + + | Address | [address] | | | [place] [address] | + + + | Home Phone [...] Author + + + | Author | [facility] | | | and [place] | + + + | Organization | [facility] | | | and [place] | + + + | Address | Unknown | + + + | Phone | Unavailable | + + + Support + + + + + | Name | Relationship | Address | Phone | + + + + + | [employer] | ECON | [phone] | | | | | Unknown | | + + + + + Care Team Providers + +------+ + | Care Piano Regulator Inspector Name | Role | Phone | [...] + + | 08/27/ | Office | [facility] | Offenstein, | Primary pulmonary | | 2012 | Visit | PULMONARY [address] | Vera Farrar MD | hypertension (HCC) | | | | [address] [place], | | (Primary Dx); COPD | | | | [place] [address] | | (chronic obstructive | | | | [phone] | | pulmonary disease) | | | [...] MD Elo Bernardo [facility] [address] [place], [address] HPI Margarita Rowley is a 47 y.o. 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 Allergies: Allergies Allergen Reactions Erythromycin Metronidazole Penicillins [...] Active Take 2,000 Units by mouth Daily. [place] Starch POWD Active by Does not apply [...] patch onto the skin every 24 hours. [place]-3 Fatty Acids (SEA-OMEGA 30) 1200 MG CAPS [...] had been received from the pharmacy [facility]). Plan 1.Clarify stopping Adcirca and starting Letairis. [...] made to ensure accuracy; however, inadvertent computerized pension agent errors may be pre sent. documented in [...] | | | | | [place] [address] | | | | | | [phone] | | | | | | | | +--------+ + + + + | 07/23/ Office | Pulmonology | Helen Astudillo | | | 2019 | Visit | | MD Vikash [address] | | | | | | [address] [place] | | | | | | [place] [address] | | | | | | [phone] | | | | | | | [...] 85 | 70 - 109 mg/dL | [facility] | | | | | [...] | 1.06 | 0.60 - 1.30 | [facility] | | | | | mg/dL | [facility] | [facility] | | | | | [facility] - | | | | | | LABORATORY | | + + + + + + | Estimated | 55 (L)Comment: For | >60 mL/min/A | [facility] | | | GFR | -Americans, | | Winter [facility] | | | | please multiply the [...] + | [facility] | [address] | [place] | [phone] | | [facility] | | [address] | | | - LABORATORY | | | | + + + + + | [facility] | [address] | [place], [place] | | | [facility] | | [address], [facility] | | | - LABORATORY [...] | | | Count | | | [facility] | | [...] [address] | [place] | [phone] | | [facility] | | [address] | | | - LABORATORY | | | | + + + + + | [facility] | [address] | [place], [place] | | | [facility] | | [address], [facility] | | | - LABORATORY [...]
--- OUTSIDE RECORDS SUMMARY | ~2020-07-11 | XMS | Encounter Summary ---
Demographics + + + | Address | [address] | | | [place] [address] | + + + | Home Phone [...] + | [employer] | ECON | [phone] | | | | | Unknown | | + + + + + Care Team Providers + +------+ + | Care Museum Archivist Name | Role | Phone | + [...] | Primary | [place], | [address] | | | | | pulmonary | Vera B, | [place], | | | | | hypertension | MD [address] | [place] | | | | | ([facility]) | [address] | [address] | | | | | Procedures | [place], | Phone: | | | | | ECHO | [place] [address] | [phone] | | | | | Complete [place] | | Fax: | | | | | [facility] | | [phone] | | | | | XTHORACIC,[place] | [...] + | 06/12/ | Office | [facility] | [place]enstein, | Primary pulmonary | | 2015 | Visit | PULMONARY [address] | Vera Farrar MD | hypertension (HCC); | | | | [place] [place], | | [place] (obstructive | | | | [place] [address] | | sleep apnea); COPD | | | | [phone] | | (chronic obstructive | | | [...] with walking, except out to the back [facility] where she has be en smoking, [...] Date COPD (chronic obstructive pulmonary disease) ([facility]) moderate, FEV1 1.40 (59%) Pulmonary hypertension ([facility]) severe, class 1, class 2, class 3 Bipolar disorder ([facility]) PTSD (post-traumatic stress disorder) Osteoarthritis Obstructive sleep [...] Years of Education: N/A Occupational History Disabled. [employer] Social History Main Topics Smoking status: Current [...] Concern None Social History Narrative Lives at [employer]. Allergies: Allergies Allergen Reactions Erythromycin Metronidazole Penicillins [...] TABS Take 2,000 Units by mouth Daily. [place] Starch POWD by Does not apply route [...] mg onto the skin every 24 hours. [place]-3 Fatty Acids (SEA-OMEGA 30) 1200 MG CAPS [...] her caregivers to take her to [facility] [place] monthly to have this done. HCG, Urine, [...] made to ensure accuracy; however, inadvertent computerized public events facilities rental manager errors may be pre sent. documented [...] [place] | | | | | | [place] [address] | | | | | | [phone] | | | | | | | | +--------+ + + + + | 07/23/ | Office | Pulmonology | Helen Astudillo | | 2019 | Visit | | MD Vikash [address] | | | | | | [address] [place] | | | | | | [place] [address] | | | | | | [phone] | | | | | | | [...]
--- OUTSIDE RECORDS SUMMARY | ~2020-07-11 | XMS | Encounter Summary ---
Demographics + + + | Address | [address] | | | [place] [address] | + + + | Home Phone [...] + | [employer] | ECON | [phone] | | | | | Unknown | | + + + + + Care Team Providers + +------+ + | Care Brake Lining Finisher Name | Role | [...] | | | | ABDIRASHID BROTHERS | [facility] [place] | | | | | [place] | [address] | | | | | [address] | [phone] | | | | | [phone] | | | +--------+ + + + [...] | | | | | [place] [address] | | | | | | [phone] | | | | | | | | +--------+ + + + + | 07/23/ | Office | Pulmonology | Helen Astudillo | | | 2019 | Visit | | MD Joey [address] | | | | | | [address] [place] | | | | | | [place] [address] | | | | | | [phone] | | | | | | | | +--------+ + + + + documented as of this encounter Visit Diagnoses Not on filedocumented in this encounter"
--- OUTSIDE RECORDS SUMMARY | ~2020-07-11 | XMS | Encounter Summary ---
Demographics + + + | Address | [address] | | | [place] [address] | + + + | Home Phone [...] + | [employer] | ECON | [phone] | | | | | Unknown | | + + + + + Care Team Providers + +------+ + | Care Sewer Tapper Name | Role | Phone | + [...] Farrar MD | | | | | [place], | | | | | | [place] [address] | | | | | | [phone] | | | +--------+--------+ + + + [...] | | | | | [place] [address] | | | | | | [phone] | | | | | | | | +--------+ + + + + | 07/23/ | Office | Pulmonology | Helen Astudillo | | 2019 | Visit | | MD [address] | | | | | | [address] [place] | | | | | | [place] [address] | | | | | | [phone] | | | | | | | | +--------+ + + + + documented as of this encounter Visit Diagnoses Not on filedocumented in this encounter"
--- OUTSIDE RECORDS SUMMARY | ~2020-07-11 | XMS | Encounter Summary ---
Demographics + + + | Address | [address] | | | [place] [address] | + + + | Home Phone [...] | Organization | [facility] | | | and [place] | + + + | Address | Unknown | + + + | Phone | Unavailable | + + + Support + + + + + | Name | Relationship | Address | Phone | + + + + + | [employer] | ECON | [phone] | | | | | Unknown | | + + + + + Care Team Providers + +------+ + | Care Lace Pinner Name | Role | Phone | + [...] | RN | | | | | [place], | | | | | | [place] [address] | | | | | | [phone] | | | +--------+ + + + [...] RN - 07/23/2013 2:30 PM PDTRemick[facility]nurse from [facility] called to clarify that the O2 with exertion should be increased to 4 l/m given Margarita kasper s COPD. documented in this encounter Plan [...] | | | | | [place] [address] | | | | | | [phone] | | | | | | | | +--------+ + + + + | 07/23/ | Office | Pulmonology | Helen Astudillo | | 2019 | Visit | | MD [address] | | | | | | [address] [place] | | | | | | [place] [address] | | | | | | [phone] | | | | | | | | +--------+ + + + + documented as of this encounter Visit Diagnoses Not on filedocumented in this encounter"
--- OUTSIDE RECORDS SUMMARY | ~2020-07-11 | XMS | Encounter Summary ---
Demographics + + + | Address | [address] | | | [place] [address] | + + + | Home Phone [...] + | [employer] | ECON | [phone] | | | | | Unknown | | + + + + + Care Team Providers + +------+ + | Care Spa Therapist Name | Role | Phone | [...] + + | 09/25/ | Office | [facility] | Jacky Caledron PA | Primary central | | 2012 | Visit | SLEEP DISORDER [address] | [address] | sleep apnea (Primary | | | | [address] [place] | [place] | Dx) | | | | [place] [address] | [address] | | | | | [phone] | | | +--------+---------+ + + + [...] visit was: date of polysomnography: 03/13/2013 at [facility] AHI: 64.2 O2%: n/a Machine type: Respironics BiPAP Auto with ResImagimod Quattro FX full face mask obtained from: [facility] pressure: 18/14 cm Nights using BiPAP: [...] weeks, sooner prn. Thirty minutes were spent [id number], wit h the majority of time spent [...] | | | | | [place] [address] | | | | | | [phone] | | | | | | | | +--------+ + + + + | 07/23/ | Office | Pulmonology | Helen Astudillo | | | 2019 | Visit | | MD [address] | | | | | | [address] | | | | | | [place] [address] | | | | | | [phone] | | | | | | | | +--------+ + + + + documented as of this encounter Visit Diagnoses + + | Diagnosis | + + | Primary central sleep apnea - Primary | + + documented in this encounter"
--- OUTSIDE RECORDS SUMMARY | ~2020-07-11 | XMS | Encounter Summary ---
Demographics + + + | Address | [address] | | | [place] [address] | + + + | Home Phone [...] + | [employer] | ECON | [phone] | | | | | Unknown | | + + + + + Care Team Providers + +------+ + | Care Metal Cleaner Name | Role | Phone | [...] + | 12/17/ | Telephone | [facility] [place] | [place], | Results (labs) | | 2014 | | PULMONARY [address] | Vera Farrar MD | | | | | [place], | | | | | | [place] [address] | | | | | | [phone] | | | +--------+ + + + [...] Lainez received Margarita's labs drawn 10/07/14 at [facility] in [place]. Per Dr Lainez the labs overall look okay. Okay per Elec tronically signed by Tarah Nino RN at 12/17/2014 1:51 PM PSTdocumented in this cox branson nter Plan of Treatment +--------+ + + + + | Date | Type | Specialty | Care Team | Description | +--------+ + + + + | 07/23/ | Appointment | Pulmonology | Helen Astudillo | | | 2019 | | | MD [address] | | | | | | [address] | | | | | | [place] [address] | | | | | | [phone] | | | | | | | | +--------+ + + + + | 07/23/ | Office | Pulmonology | Helen Astudillo | | 2019 | Visit | | MD [address] | | | | | | [address] | | | | | | [place] [address] | | | | | | [phone] | | | | | | | | +--------+ + + + + documented as of this encounter Visit Diagnoses Not on filedocumented in this encounter"
--- OUTSIDE RECORDS SUMMARY | ~2020-07-11 | XMS | Encounter Summary ---
Demographics + + + | Address | [address] | | | [place] [address] | + + + | Home Phone [...] + | [employer] | ECON | [phone] | | | | | Unknown | | + + + + + Care Team Providers + +------+ + | Care Clothing Man Name | Role | Phone | [...] [place] | | | | | | [address] | (Fax) | | | | | [phone] | | | +--------+ + + + [...] | | | | | [place] [address] | | | | | | [phone] | | | | | | | | +--------+ + + + + | 07/23/ | Office | Pulmonology | Helen Astudillo | | | 2019 | Visit | | MD Joey Suh | | | | | | [address] [place] | | | | | | [place] [address] | | | | | | [phone] | | | | | | | | +--------+ + + + + documented as of this encounter Visit Diagnoses Not on filedocumented in this encounter"
--- OUTSIDE RECORDS SUMMARY | ~2020-07-11 | XMS | Encounter Summary ---
Demographics + + + | Address | [address] | | | [place] [address] | + + + | Home Phone [...] + | [employer] | ECON | [phone] | | | | | Unknown | | + + + + + Care Team Providers + +------+ + | Care Senior Counsel Name | Role | Phone | + [...] | | | Pulmonology | airway | INTERLOCKING AND SIGNAL MECHANIC [address] | MD | | | | | obstruction, | IRMA | | | | | | not | [address] | | | | | | elsewhere | [place], | | | | | | classified | [place] [address] | | | | | | Obstructive | Phone: | | | | | | sleep apnea | [phone] | | | | | | (adult) | Fax: | | | | | | (pediatric) | [phone] | | | | | | Procedures | | | | | | | [place] OFFICE | | | | | | | OUTPATIENT | | | | | | | VISIT 25 | | | | | | | MINUTES F/U | | | +--------+--------+ + + + + Encounter Details +--------+---------+ + + + | Date | Type | Department | Care Team | Description | +--------+---------+ + + + | 11/12/ | Office | [facility] | [place], | Primary pulmonary | | 2014 | Visit | PULMONARY [address] | Vera Farrar MD | hypertension | | | | [place], | | (Primary Dx); COPD | | | | [place] [address] | | (chronic obstructive | | | | [phone] | | pulmonary disease); | | | [...] Years of Education: N/A Occupational History Disabled. [employer] Social History Main Topics Smoking status: Former Smoker -- 1.0 packs/day for 20 years Types: Cigarettes Quit date: 05/14/2013 Smokeless tobacco: None Alcohol Use: Yes Comment: history of abuse Drug Use: Yes Special: Cocaine Comment: history of cocaine use Sexually Active: None Other Topics Concern None Social History Narrative Lives at [employer]. Allergies: Allergies Allergen Reactions Erythromycin Metronidazole Penicillins [...] TABS Take 2,000 Units by mouth Daily. [place] Starch POWD by Does not apply route [...] tablet Take 15 mg by mouth Daily. [place]-3 Fatty Acids (SEA-OMEGA 30) 1200 MG CAPS [...] made to ensure accuracy; however, inadvertent computerized lactation coordinator errors may be pre sent. documented [...] | | | | | | [place] [address] | | | | | | [phone] | | | | | | | | +--------+ + + + + | 07/23/ | Office | Pulmonology | Baudilio Helen | | | 2019 | Visit | | MD Vikash [address] | | | | | | [address] [facility] | | | | | | [place] [address] | | | | | | [phone] | | | | | | | [...]
--- OUTSIDE RECORDS SUMMARY | ~2020-07-11 | XMS | Encounter Summary ---
Demographics + + + | Address | [address] | | | [place] [address] | + + + | Home Phone [...] + | [employer] | ECON | [phone] | | | | | Unknown | | + + + + + Care Team Providers + +------+ + | Care Mechanical Handyman Name | Role | Phone | + [...] MD | obstructive | | | | [place], | | pulmonary disease) | | | | [place] [address] | | (HCC) (Primary Dx); | | | | [phone] | | Pulmonary | | | | | | hypertension ([facility]); | | | | | | Obstructive [...] | | | | | [place] [address] | | | | | | [phone] | | | | | | | | +--------+ + + + + | 07/23/ | Office | Pulmonology | Helen Astudillo | | 2019 | Visit | | MD [address] | | | | | | [address] | | | | | | [place] [address] | | | | | | [phone] | | | | | | | [...]
--- OUTSIDE RECORDS SUMMARY | ~2020-07-11 | XMS | Encounter Summary ---
Demographics + + + | Address | [address] | | | [place] [address] | + + + | Home Phone [...] Organization | [facility] | | | and [place] | + + + | Address | Unknown | + + + | Phone | Unavailable | + + + Support + + + + + | Name | Relationship | Address | Phone | + + + + + | [employer] | ECON | [phone] | | | | | Unknown | | + + + + + Care Team Providers + +------+ + | Care Executive Search Consultant Name | Role | Phone | + +------+ + | Gela Trimble NP | PCP | | + +------+ + Encounter Details +--------+ + + + + | Date | Type | Department | Care Team | Description | +--------+ + + + + | 09/17/ | Hospital | [facility] | [place], | Primary pulmonary | | 2012 | Encounter | [facility] | Vera Farrar MD | hypertension (HCC) | | | | [address] [place] | | | | | | [place] | | | | | | [address] | | | | | | [phone] | | | +--------+ + + + [...] + + + +---------+ + + | [place] Starch POWD | by Does not apply [...] + + + +---------+ + + | [place]-3 Fatty | Take by mouth. | [...] | | | | | [place] [address] | | | | | | [phone] | | | | | | | | +--------+ + + + + | 07/23/ | Office | Pulmonology | Helen Astudillo | | | 2019 | Visit | | MD [address] | | | | | | [address] | | | | | | [place] [address] | | | | | | [phone] | | | | | | | [...] | [facility] | | | | [place] [facility] | | MEDICAL | | | [...] [address] | [place] | [phone] | | [facility] | | [address] | | | - LABORATORY | | | | + + + + + | [facility] | [address] | [place] | | | [facility] | | [address], [facility] | | | - LABORATORY | | | | + + + + + documented in this encounter Visit Diagnoses + + | Diagnosis | + + | Primary pulmonary hypertension (HCC) Primary pulmonary hypertension | + + documented in this encounter"
--- OUTSIDE RECORDS SUMMARY | ~2020-07-11 | XMS | Encounter Summary ---
Demographics + + + | Address | [address] | | | [place] [address] | + + + | Home Phone [...] + | [employer] | ECON | [phone] | | | | | Unknown | | + + + + + Care Team Providers + +------+ + | Care Service Porter Name | Role | Phone | + [...] | | [facility] | Zari, Infusion Nurse | use | | | | [address] [place] | | | | | | [place] | | | | | | [address] | | | | | | [phone] | | | +--------+ + + + [...] | | | | | | [place] [address] | | | | | | [phone] | | | | | | | | +--------+ + + + + | 07/23/ | Office | Pulmonology | Helen Astudillo | | | 2019 | Visit | | MD [address] | | | | | | [address] [place] | | | | | | [place] [address] | | | | | | [phone] | | | | | | | [...] eGFR, | 57 (L)Comment: | >=60 | [facility] | | | non- | GLOMERULAR FILTRATION | mL/min/1.73m2 | [facility] | | | [place] | RATE,ESTIMATED | | MEDICAL | | | | mL/min/1.16o8Teas than | | CENTER - | | [...] + | [facility] | [address] | [place] | [phone] | | [facility] | | [address] | | | - LABORATORY | | [...] | | Neutrophils | | K/uL | [facility] | | | | | | MEDICAL | | | | | | CENTER - | | | | | | LABORATORY | | + +-------+ + + + | Absolute | 1.40 | 0.60 - 3.20 | [facility] | | | Lymphocytes | | K/uL | [facility] | | | | | | MEDICAL | | | | | | CENTER - | | | | | | LABORATORY | | + +-------+ + + + | Absolute | 0.50 | 0.00 - 1.00 | [facility] | | | Monocytes | | K/uL | [facility] | | | | | | MEDICAL | | | | | | CENTER - | | | | | | LABORATORY | | + +-------+ + + + | Absolute | 0.10 | 0.00 - 0.40 | [facility] | | | Eosinophils | | K/uL | [facility] | [...] [address] | [place] | [phone] | | [facility] | | [address] | | | - LABORATORY | | | | + + + + + documented in this encounter Visit Diagnoses + + | Diagnosis | + + | High risk medication use Encounter for long-term (current) use of other medications | + + documented in this encounter"
--- OUTSIDE RECORDS SUMMARY | ~2020-07-11 | XMS | Encounter Summary ---
Demographics + + + | Address | [address] | | | [place] [address] | + + + | Home Phone [...] Author + + + | Author | [facility] | | | and [place] | + + + | Organization | [facility] | | | and [place] | + + + | Address | Unknown | + + + | Phone | Unavailable | + + + Support + + + + + | Name | Relationship | Address | Phone | + + + + + | [employer] | ECON | [id number] | | | | | Unknown | | + + + + + Care Team Providers + +------+ + | Care Air Brake Adjuster Name | Role | Phone | [...] | | | | | | [place] [address] | | | | | | [phone] | | | +--------+ + + + [...] | | | | | [place] [address] | | | | | | [phone] | | | | | | | | +--------+ + + + + | 07/23/ | Office | Pulmonology | Helen Astudillo | | | 2019 | Visit | | MD [address] | | | | | | [address] [place] | | | | | | [place], [place] [address] | | | | | | [phone] | | | | | | | [...]
--- OUTSIDE RECORDS SUMMARY | ~2020-07-11 | XMS | Encounter Summary ---
Demographics + + + | Address | [address] | | | [place] [address] | + + + | Home Phone [...] + | [employer] | ECON | [id number] | | | | | Unknown | | + + + + + Care Team Providers + +------+ + | Care Artificial Limb Maker Name | Role | Phone | [...] [place] | | | | | [address] | [address] | | | | | [phone] | [phone] | | | | | | | [...] | | | | | [place] [address] | | | | | | [phone] | | | | | | | | +--------+ + + + + | 07/23/ | Office | Pulmonology | Helen Astudillo | | | 2019 | Visit | | MD [address] | | | | | | [address] [place] | | | | | | [place] [address] | | | | | | [phone] | | | | | | | | +--------+ + + + + documented as of this encounter Visit Diagnoses Not on filedocumented in this encounter"
--- OUTSIDE RECORDS SUMMARY | ~2020-07-11 | XMS | Encounter Summary ---
Demographics + + + | Address | [address] | | | [place] [address] | + + + | Home Phone [...] | Organization | [facility] | | | and [place] | + + + | Address | Unknown | + + + | Phone | Unavailable | + + + Support + + + + + | Name | Relationship | Address | Phone | + + + + + | [employer] | ECON | [phone] | | | | | Unknown | | + + + + + Care Team Providers + +------+ + | Care On Air Director Name | Role | Phone | [...] [place] | | | | | | [address] | | | | | | [phone] | | | +--------+ + + + [...] | | | | | [place] [address] | | | | | | [phone] | | | | | | | | +--------+ + + + + | 07/23/ | Office | Pulmonology | Helen Astudillo | | | 2019 | Visit | | MD Vikash [address] | | | | | | [address] [facility] | | | | | | [place] [address] | | | | | | [phone] | | | | | | | [...] | LV systolic and diastolic functions NML, [place] visually estimates | | | LVEF 60-65%. [...] | LV systolic and diastolic functions NML, [place] visually estimates | | | LVEF 60-65%. [...] pressures of | | | 10-15mmHg. MEASUREMENTS [place] [facility]: | | | Authenticated by: Avila Haynes DO Report Date/Time: -- | | | [id number] | | + + + + + | Procedure Note | + + | Andrade, Rad Conversion - 06/22/2019 10:54 AM PDT Patient Name: Julia Rowley of | | : 1965 Performing Physician: Avila Haynes | | DO INDICATIONS P | | ulmonary HTN CONCLUSIONS 1. Sinus rhythm. TDS. 2. Cardiac chamber dimensions | | grossly NML. LV systolic and diastolic functions NML, [place] visually estimates LVEF | | 60-65%. RV [...] venous pressures of 10-15mmHg. | | MEASUREMENTS [place] [employer]: DHAuthenticated by: Avila Moses | | Date/Time: -- [id number] IMPRESSION: 1. Sinus rhythm. TDS. 2. Cardiac | | chamber dimensions grossly NML. LV systolic and diastolic functions NML, [place] | | visually estimates LVEF 60-65%. RV [...] | |MEASUREMENTS | | | | | |[place] [employer]: RUDI | |Authenticated by: Avila Haynes DO | |Report Date/Time: -- [id number] | | | |IMPRESSION: | |1. Sinus rhythm. TDS. 2. Cardiac chamber dimensions grossly NML. LV systolic and diastoli c functions NML, [place] visually estimates LVEF 60-65%. RV grossly NML. 3. Valves grossly N ML. No /AI. Mild MR, mild | |TR, trace PI. 4. No Pericardial effusion. | | 5. IVC plethoric, est systolic PAP 36-41mmHg, borderline. | + + documented in this encounter Visit Diagnoses Not on filedocumented in this encounter"
--- OUTSIDE RECORDS SUMMARY | ~2020-07-11 | XMS | Encounter Summary ---
Demographics + + + | Address | [address] | | | [place] [address] | + + + | Home Phone [...] + | Organization | [facility] | | | and [place] | + + + | Address | Unknown | + + + | Phone | Unavailable | + + + Support + + + + + | Name | Relationship | Address | Phone | + + + + + | [employer] | ECON | [id number] | | | | | Unknown | | + + + + + Care Team Providers + +------+ + | Care Uniformer Name | Role | Phone | + [...] + | 04/30/ | Office | [facility] | Jacky Calderon PA | [place] treated with | | 2019 | Visit | SLEEP DISORDER [address] | [address] | BiPAP (Primary Dx) | | | | [address] [place] | [place] | | | | | [place] [address] | [id number] | | | | | [phone] | | | +--------+---------+ + + + [...] visit: 04/16/2019 date of polysomnography: 03/13/2013 at [facility] AHI: 64.2 O2%: n/a Machine type: Respironics DreamStation Auto BiPAP Mask type: ResMed Quattro FX full face mask DME: [facility] [place] pressure: 16/5 cm with backup rate of [...] Assessment: Problem #1: PRIMARY CENTRAL SLEEP APNEA ([id number]-I79.31) She has severe apnea. This is controlled [...] year, sooner prn. Fifteen minutes were spent [id number], with the majority of time spent in counseling. Jacky Calderon PA-C Cc: Shanice Huang MD documented in this enco unter Plan of Treatment +--------+ + + + + | Date | Type | Specialty | Care Team | Description | +--------+ + + + + | 07/23/ | Appointment | Pulmonology | Helen Astudillo | | | 2019 | | | MD [address] | | | | | | [address] [place] | | | | | | [place] [address] | | | | | | [phone] | | | | | | | | +--------+ + + + + | 07/23/ | Office | Pulmonology | Helen Astudillo | | | 2019 | Visit | | MD [address] | | | | | | [address] [place] | | | | | | [place] [address] | | | | | | [phone] | | | | | | | | +--------+ + + + + documented as of this encounter Visit Diagnoses + + | Diagnosis | + + | [place] treated with BiPAP - Primary | + + documented in this encounter"
--- OUTSIDE RECORDS SUMMARY | ~2020-07-11 | XMS | Encounter Summary ---
Demographics + + + | Address | [address] | | | [place] [address] | + + + | Home Phone [...] Organization | [facility] | | | and [place] | + + + | Address | Unknown | + + + | Phone | Unavailable | + + + Support + + + + + | Name | Relationship | Address | Phone | + + + + + | [employer] | ECON | [id number] | | | | | Unknown | | + + + + + Care Team Providers + +------+ + | Care Database Technician Name | Role | Phone | [...] [address] | | | | | ([facility]) | MD [address] | | | | | | [address] | [address] | | | | | | [place], | [place], [place] | | | | | | [place] [address] | [address] Phone: | | | | | | | [phone] | | | | | | | Fax: | | | | | | | [phone] | +--------+ + + + + + [...] | | MD [address] | | | | | [address] | [place], | | | | | | [place], | [place] [address] | | | | | | [place] [address] | Phone: | | | | | | | [phone] | | | | | | | Fax: | | | | | | | [phone] | +--------+ + + + + + [...] [address] | | | | | ([facility]) | [address] | | | | | | [address] | [address] | | | | | | [place], | [place], [place] | | | | | | [place] [address] | [address] Phone: | | | | | | | [phone] | | | | | | | Fax: | | | | | | | [phone] | +--------+ + + + + + Encounter Details +--------+---------+ + + + | Date | Type | Department | Care Team | Description | +--------+---------+ + + + | 07/04/ | Office | [facility] | [place], | Pulmonary | | 2012 | Visit | PULMONARY [address] | Vera Farrar MD | hypertension (HCC) | | | | [place], | | (Primary Dx); [place] | | | | [place] [address] | | (obstructive sleep | | | | [phone] | | apnea); Hypoxemia; | | | | | | COPD (chronic | | | | | | obstructive | | | | | | pulmonary disease) | | | | | | ([facility]); Congestive | | | | | | heart failure with | | | | | | LV diastolic | | | | | | dysfunction, NYHA | | | | | | class 3 ([facility]); | | | | | | [...] original. Pulmonary Consult Note Vera Lainez MD [facility] [address], [address] Referring Provider: Gela Augustin Amrik is a [...] and chest pain. She was taken to [facility] and underwent evaluation there. She does [...] pre hospitalization work up either. While at [facility], she had a right heart cath [...] factors for HIV. She was tested at [facility] as well. Past Medical History Past [...] Years of Education: N/A Occupational History Disabled. [employer] Social History Main Topics Smoking status: Former Smoker -- 1.0 packs/day for 20 years Types: Cigarettes Quit date: 05/14/2013 Smokeless tobacco: None Alcohol Use: Yes history of abuse Drug Use: Yes Special: Cocaine history of cocaine use Sexually Active: None Other Topics Concern None Social History Narrative Lives at [facility]. Allergies: Allergies Allergen Reactions Erythromycin Metronidazole Penicillins [...] Place 1 applicator vaginally 2 times daily. [place]-3 Fatty Acids (SEA-OMEGA 30) 1200 MG CAPS [...] pressure of 18/14cm H2O. Echocardiogram done at [facility] on May 02, 2013 was reviewed [...] were performed on May 07, 2013 at [facility] in the pulmonary function l ab [...] were reviewed in clinic today. Records from [facility] are reviewed in clinic today. Assessment [...] to them, but she was at a [facility] in the interim. I am going to have her see a pulmonary hypertension specialist (Dr. Rivera, [facility])to dec deb on most appropriate medication, though [...] iPAP. She had an overnight oximetry at [facility] (I think on 2L?) which showed [...] ordered today. 7.See pulmonary hypertension specialist in [place], Dr. Rivera to address question of medi [...] made to ensure accuracy; however, inadvertent computerized pest control pilot errors may be pre sent. documented in t his encounter Miscellaneous Notes Miscellaneous - ONBASE SCAN [facility] - 07/04/2013 12:00 AM PDT iscellaneous - ONBASE SCAN [facility] - 07/04/2013 12:00 AM PDTEle ctronically signed by Thor Castro at 07/30/2013 3:55 PM PDTMiscellaneous - ONBASE SCAN [facility] T - 07/04/2013 12:00 AM PDT d ocumented in this encounter Plan of Treatment +--------+ [...] | | | | | | [place] [address] | | | | | | [phone] | | | | | | | | +--------+ + + + + | 07/23/ | Office | Pulmonology | Helen Astudillo | | | 2019 | Visit | | MD [address] | | | | | | [address] [place] | | | | | | [place] [address] | | | | | | [phone] | | | | | | | [...] Ab, IgG | | e | hypertension ([facility]) | 07/04/2013, Expires: | | | | | | 07/04/2014 | + + +--------+ + + | PMO ANALYST Ab, IgG | Lab | Routin | Pulmonary | Expected: | | | | e | hypertension ([facility]) | 07/04/2013, Expires: | | | | | | 07/04/2014 | + + +--------+ + + | Rowley Ab, IgG | Lab | Routin | Pulmonary | Expected: | | | | e | hypertension ([facility]) | 07/04/2013, Expires: | | | [...] | | Care | e | hypertension ([facility]) | 07/04/2013, Expires: | | | [...] | | MEDICAL | | | | [id number]: [id number] | | CENTER - | | | [...] [address] | [place] | [phone] | | [facility] | | [address] | | | - LABORATORY | | | | + + + + + | [address] | [address] | [place], [place] | | | [facility] | | [address], [facility] | | | - LABORATORY [...] + | [address] | [address] | [place], [place] | [phone] | | [facility] | | [address] | | | - LABORATORY | | | | + + + + + | [address] | [address] | [place], [place] | | | [facility] | | [address], [facility] | | | - LABORATORY [...]
--- OUTSIDE RECORDS SUMMARY | ~2020-07-11 | XMS | Encounter Summary ---
Demographics + + + | Address | [address] | | | [place] [address] | + + + | Home Phone | | + + + | Preferred Language | Unknown | + + + | Marital Status | Single | + + + | Caodaism Affiliation | NRP | + + + [...] | + + +---------+ + | Lidia Archer | ECON | Unknown | | + + +---------+ + Care Team Providers + +------+ + | Care Neck Band Setter Name | Role | Phone | + +------+ + | Gela Trimble FIELD CHECKER | PCP | | + +------+ + [...] | [address] | [address] | | | | | chronic | Zach | Zach Saez | | | | | pulmonary | Nadja [place] | [place], | | | | | heart | [place], [place] | [place] | | | | | diseases | [address] | [address] | | | | | Procedures | Phone: | Phone: | | | | | CONSULT TO | [phone] | [phone] | | | | | PULMONARY | Fax: | Fax: | | | | | | [phone] | [phone] | +--------+--------+ + + + + Diagnostic [...] | gy | ROUTINE | [address] | | | | | | | Zach | | | | | | | Nadja Solomon | | | | | | | [place], [place] | | | | | | | [address] | | | | | | | Phone: | | | | | | | [phone] | | | | | | | Fax: | | | | | | | [phone] | | +--------+--------+ + + + + Diagnostic Testing (Routine) +--------+--------+ + + + + | Status | Reason | Specialty | Diagnoses / | Referred By | Referred To | | | | | Procedures | Contact | Contact | +--------+--------+ + + + + | Closed | | Cardiology | Procedures | [place], | Car Echo | | | | | | Judi Hein, | [facility] [address] | | | | | TRANSTHORACI | MD [address] | | | | | C | [place] | [place] | | | | | E[address]IO[address] | [address] | [place] | | | | | AM, ADULT | [place], [place] | [facility] | | | | | | [address] | floor | | | | | | | [place], [place] | | | | | | | [address] | | | | | | | Phone: | | | | | | | [phone] | +--------+--------+ + + + + Reason [...] | | | | | | | [address] [facility] | | | | | | | Zach Saez | | | | | | | Mushtaq Mailcode: | | | | | | | [address] [facility] | | | | | | | Hospital | | | | | | | [place], [place] | | | | | | | [address] | | | | | | | Phone: | | | | | | | [phone] | | | | | | | Fax: | | | | | | | [phone] | +--------+--------+ + + + + Encounter Details +--------+ + + + + | Date | Type | Department | Care Team | Description | +--------+ + + + + | 05/02/ | Hospital | [facility] 14B MEDICINE | Damián Cervantes MD | | | 2013 - | Encounter | [address] | [address] | | | | | Nadja Solomon Mailcode: | Nadja [address] [place], | | | 05/12/ | | [facility] [facility] | [place] [address] | | | 2012 | | [place], [place] | [phone] | | | | | [address] | | | | | | [phone] | Agus Hu MD | | | | | | [address] | | | | | | Nadja Solomon [place], | | | | | | [place] [address] | | | | | | [phone] | | | | | | | [...] Author: Cristine Freeman MD Attending Physician: Dr. Ttay Bucio MD PCP: Gela Trimble NP Admission [...] interventricular septum. RVSP 75 +. Transferred to [facility] from [facility] ED on after presenting [...] to 100/80s. Initial vitals on arrival at [facility] were T 36.6 BP 110/69 P [...] ensure proper diuresis -pt will f/u with fishing captain- Avila Langley in [place] #. Pulmonary hypertension, idiopathic- diagnosis confirmed via [...] and EEG with mild global encephalopathy. Had tiennes sed seizure-like activity while admitted on 05/03/13 [...] mg by mouth once daily in the mor katarzyna. cetirizine 10 mg Oral tablet Take [...] Apply 1 Patch to skin once daily. Conception-3 Fatty Acids-Vitamin E (FISH OIL) 1,000 mg [...] SNF physician to follow, Dr. Ansari from [facility] -spoke to PCP and spoke over hospital course and f/u plans -will have pulm f.u here at [facility] as no pulm htn specialist in [place], to be arranged -asked PCP, who had been managing seizure d/o to arrange for neurology f/u in [place] (a greed) -pt will f/u with fishing captain- Avila Langley in [place] Outstanding labs/studies: none Cristine Freeman MD Internal Medicine Resident Pager [phone] Jessica Lopez MD Anesthesiology, PGY-1 Pager [phone] documented in t his encounter Medications at [...] + + + +---------+ + + | Conception-3 Fatty | Take 1 Cap by mouth [...] the | | | | | | release(DR/EC) | morning. | | [...] (nl for pt per caregiver), answering questions sreekanth ropriately, chest cta, cv rrr nl s1s2, abd soft ndnt Main issues: 1. Pulmonary hypertension - needs f/u with pulm htn clinic. Started on sindenefil per pulm. Stable for d/c. 2. Sleep apnea - pt unable to tolerate cpap 3. Seizure disorder, bipolar disorder, developmental delay 4. Dispo - d/c to SNF near [place] for rehab. Taty Bucio MD, MPH development team lead [facility] DEPARTMENT: [id number]- [facility] Faculty PPV Place of Service:- Inpatient Date of Service: 05/12/2013 CSN: [id number] Suggested Modifiers:GC- Resident present for procedure Suggested CPT: 52273- Discharge < 30 min Too Lechuga MD - 05/11/2013 9:01 PM PDT General Internal Medicine 4 Resident Progress Note Hospital Day:9 Author; TOO LOPEZ MD Attending Physician: Agus Hu MD 24 Hour Events: No acute overnight [...] Imaging Interpretation: None. Assessment and Plan Keo Lane is a 47 y/o F with PMHx [...] rehab -plan for transport tomorrow 11am to [facility] -spoke with Dr. Ansari (family [facility]), physician to take care of p t at SNF -outpt meds: lasix 80mg PO BID, 40mEq KCl tab daily Agus Hu MD saw and evaluated this patient and aggress with my assessment and plan as documented above. Jessica Lopez MD Anesthesiology, PGY-1 Pager [phone] leAgus maddne MD - 0 05/11/2013 4:10 PM [facility] 4 GENERAL MEDICINE ATTENDING PROGRESS NOTE ADMIT DATE: 05/02/2013 8:40 PM TODAY'S DATE: 05/11/2013 (HOSPITAL DAY 9) I personally interviewed the patient, performed the beverly elements of the physical examinatio n, reviewed new lab data in EPIC, looked at any new radiology images and have developed an u pdated assessment and plan together with the 4 residents, Dr. Lopez/Lydia. Please see [facility] housestaff notes for full details. History: RHC [...] SNF, transport set up for tomorrow. AGUS HU MD Divisional Storekeepermachine operator replanter Division of Hospital Medicine Department of Internal Medicine [facility] DEPARTMENT: Hosp- [id number] Place of Service: - Date of Service: 05/11/2013 CSN: [id number] Modifiers:GC Resident Involved: Yes Suggested CPT: 20249 Subsequent Visit Exp Prob Foc/Mod Complexity 25 min I spent 30 minutes in the care of this patient today while on the medical unit with >50% of the time being spent in communication and coordination of care EYPevesna, Shahbaz K - 7:43 AM PDT General Internal Medicine 4 Progress Note 24 Hour Events: No acute events. Got RHC yesterday. Physical therapy worked with her again yesterday afte rnmichael. States that she slept well, but fell [...] to sit and stand with moderate assistance. Agus Sandoval MD - 0 05/10/2013 11:41 AM PDT 4 GENERAL MEDICINE ATTENDING PROGRESS NOTE ADMIT DATE: 05/02/2013 8:40 PM TODAY'S DATE: 05/10/2013 (HOSPITAL DAY 8) I personally interviewed the patient, performed the beverly elements of the physical examinatio n, reviewed new lab data in [facility], looked at any new radiology images and have developed an u pdated assessment and plan together with the 4 residents, Dr. Lopez/Lydia. Please see [facility] housestaff notes for full details. I agree with their note with the following additions/ex ceptions. Assessment and Plans Patient Active Hospital Problem List: 1) *Right heart failure due to pulmonary hypertension: Still unclear cause of PulmHTN. Cou ld still be related to GLORIA, will review results of initial sleep study showing severe AHI [facility] pulmonology. RHC today. IF wedge pressure [...] Bipolar affective disorder 11) Developmental delay AGUS HU MD Divisional Storekeepermachine operator replanter Division of Hospital Medicine Department of Internal Medicine [facility] DEPARTMENT: Hosp- [id number] Place of Service: - [id number] Date of Service: 05/10/2013 CSN: [id number] Modifiers:GC Resident Involved: Yes Suggested CPT: 88134 Subsequent Visit Detailed/High complexity 35 min Too Lechuga MD - 0 05/10/2013 10:53 AM PDT General Internal Medicine 4 Resident Progress Note Hospital Day:8 Author; TOO LOPEZ MD Attending Physician: Agus Hu MD 24 Hour Events: No acute overnight events. Subjective: Pt is very friendly this morning and is upset that she cannot eat or drink, but understands why. She thinks her breathing has improved. Pt continues to have adequate urine output per nursing, but difficult to assess since her lozano was removed and daily weights are not [...] Imaging Interpretation: None. Assessment and Plan Keo Lane is a 47 y/o F with PMHx [...] on 712 am prior to first dose -continue gabapentin 600mg TID #low potassium- repleted with 80mEq K PO #UTI - resolved -to prevent hospital acquired UTI, removed lozano catheter #GLORIA - CPAP at night - [...] CM for SNF placement upon DC Agus Hu MD saw and evaluated this patient and aggress with my assessment and plan as documented above. Jessica Lopez MD Anesthesiology, PGY-1 Pager [phone] gus Hu MD - 0 05/09/2013 3:08 PM [facility] 4 GENERAL MEDICINE ATTENDING PROGRESS NOTE ADMIT DATE: 05/02/2013 8:40 PM TODAY'S DATE: 05/09/2013 (HOSPITAL DAY 7) I personally interviewed the patient, performed the beverly elements of the physical examinatio n, reviewed new lab data in EPIC, looked at any new radiology images and have developed an u pdated assessment and plan together with the [facility]4 residents, Dr. Lopez/Lydia. Please see e housestaff [...] Bipolar affective disorder 11) Developmental delay AGUS HU MD Divisional Storekeepermachine operator replanter Division of Hospital Medicine Department of Internal Medicine [facility] DEPARTMENT: Hosp- [id number] Place of Service: - Date of Service: 05/09/2013 CSN: [id number] Modifiers:GC Resident Involved: Yes Suggested CPT: 74387 Subsequent Visit Exp Prob Foc/Mod Complexity 25 min ristine Freeman MD - 05/09/2013 1:18 PM PDT Inpatient Medicine Progress Note Attending: Agus Hu MD Hospital Day: 7 Assessment and Plan Keo Lane is a 47 y/o F with PMHx [...] pharm, check trough level of depakote on 12 am prior to first dose #GLORIA - [...] pending better optimization of fluid status, hopeful [facility] Code Status:} Full Code -:Interval Hx:- [...] -:Labs:- Recent Labs 05/02/13 2210 05/07/13 0752 05/08/1364505/09/13 0718 WBC 8.5 < > 6.9 7.9 [...] in this interval not displayed. Recent Labs 05/07/132 05/08/1346 05/09/13717 NA 142 139 139 K 4.4 4.1 [...] new The patient was discussed with Dr. hu who agrees with the assessment and plan. Cristine Freeman Internal Medicine Resident [phone] [facility] madden MD - 05/08/2013 2:00 PM [facility] 4 GENERAL MEDICINE ATTENDING PROGRESS NOTE ADMIT DATE: 05/02/2013 8:40 PM TODAY'S DATE: 05/08/2013 (HOSPITAL DAY 6) I personally interviewed the patient, performed the beverly elements of the physical examinatio n, reviewed new lab data in EPIC, looked at any new radiology images and have developed an u pdated assessment and plan together with the [facility] residents, Dr. Lopez/Lydia. Please see e housestaff [...] pulmonary hypertension: Continue IV diuretics. I imagine deidra branch still has 10-15L to give of extra [...] managing diuretics as an outpti ent for eKo once she returns home 2) Dyspnea: improving with diuresis 3) Pulmonary hypertension 4) Cor pulmonale, chronic 5) Sleep apnea 6) Morbid obesity with BMI of 45.0-49.9, adult 7) COPD (chronic obstructive pulmonary disease) with chronic bronchitis 8) Anasarca 9) Seizure disorder 10) Bipolar affective disorder 11) Developmental delay AGUS HU MD Divisional Storekeepermachine operator replanter Division of Hospital Medicine Department of Internal Medicine [facility] DEPARTMENT: Hosp- [id number] Place of Service: Date of Service: 05/08/2013 CSN: [id number] Modifiers:GC Resident Involved: Yes Suggested CPT: 43976 Subsequent Visit Exp Prob Foc/Mod Complexity 25 min Too Lechuga MD - 0 05/08/2013 11:26 AM PDT General Internal Medicine 4 Resident Progress Note Hospital Day:6 Author; TOO LOPEZ MD Attending Physician: Agus Hu MD 24 Hour Events: Pt received overnight [...] Imaging Interpretation: None. Assessment and Plan Keo Lane is a 47 y/o F with PMHx [...] resolved -to prevent hospital acquired UTI, remove lozano catheter #GLORIA - CPAP at night - outside sleep study records obtained -F/U with pulm team #mordid obesity #Bipolar disorder/PTSD -paxil 20mg PO qdaily -risperdal 4mg PO qbedtime #COPD/smoking -patient counseled on importance of smoking cessation to improve breathing -nicotine patch -combivent inhaler 2 puff QID #hypothyroidism -levothyroxine 137mcg PO qdaily Agus Hu MD saw and evaluated this patient and aggress with my assessment and plan as documented above. Jessica Lopez MD Anesthesiology, PGY-1 Pager [phone] [facility] madden MD - 0 05/07/2013 4:36 PM [facility] 4 GENERAL MEDICINE ATTENDING PROGRESS NOTE ADMIT DATE: 05/02/2013 8:40 PM TODAY'S DATE: 05/07/2013 (HOSPITAL DAY 5) I personally interviewed the patient, performed the beverly elements of the physical examinatio n, reviewed new lab data in EPIC, looked at any new radiology images and have developed an u pdated assessment and plan together with the [facility] residents, Dr. Lopez/Lydia. Please see e housestaff [...] Bipolar affective disorder 11) Developmental delay AGUS HU MD Divisional Storekeepermachine operator replanter Division of Hospital Medicine Department of Internal Medicine [facility] DEPARTMENT: Hosp- [id number] Place of Service: - Date of Service: 05/07/2013 CSN: [id number] Modifiers:GC Resident Involved: Yes Suggested CPT: 84954 Subsequent Visit Exp Prob Foc/Mod Complexity 25 min azo, Too Bruno MD - 0 05/07/2013 3:53 PM PDT General Internal Medicine 4 Resident Progress Note Hospital Day:5 Author; TOO LOPEZ MD Attending Physician: Agus Hu MD 24 Hour Events: No acute overnight [...] injection 40 mg 40 mg Intravenous BID (08 and 17) gabapentin (aka NEURONTIN) tablet 600 mg 600 [...] 72 hours (or 3 results) Recent Labs 05/05/13 0734 05/06/13 0742 05/07/13 0752 WBC 4.8 5.0 6.9 HB 14.6 15.3 16.0 HCT 45.1 47.4* 49.0* PLT 132* 133* 136* Recent Labs 05/05/13 0734 05/06/13 0742 05/07/13 0752 NA 143 141 [...] Imaging Interpretation: None. Assessment and Plan Keo Lane is a 47 y/o F with PMHx [...] QID #hypothyroidism -levothyroxine 137mcg PO qdaily Agus Hu MD saw and evaluated this patient and aggress with my assessment and plan as documented above. Jessica Lopez MD Anesthesiology, PGY-1 Pager [phone] EYSelect [facility]woodAgus madden MD - 0 05/06/2013 7:47 PM [facility] 4 GENERAL MEDICINE ATTENDING PROGRESS NOTE ADMIT DATE: 05/02/2013 8:40 PM TODAY'S DATE: 05/06/2013 (HOSPITAL DAY 4) I personally interviewed the patient, performed the beverly elements of the physical examinatio n, reviewed new lab data in [facility], looked at any new radiology images and have developed an u pdated assessment and plan together with the [facility] residents, Dr. Lopez/Lydia. Please see e housestaff [...] kg/(m^2) No distress JVP difficult to assess [place] edema still present in the legs. Assessment [...] Bipolar affective disorder 11) Developmental delay AGUS HU MD Divisional Storekeepermachine operator replanter Division of Hospital Medicine Department of Internal Medicine [facility] DEPARTMENT: Hosp- [id number] Place of Service: [facility] [id number] Date of Service: 05/06/2013 CSN: [id number] Modifiers:GC Resident Involved: Yes Suggested CPT: 82478 Subsequent Visit Exp Prob Foc/Mod Complexity 25 min aamira, Too Bruno MD - 0 05/06/2013 3:38 PM PDT General Internal Medicine 4 Resident Progress Note Hospital Day:4 Author; TOO LOPEZ MD Attending Physician: Agus Hu MD 24 Hour Events: Resident paged to [...] Imaging Interpretation: None. Assessment and Plan Keo Lane is a 47 y/o F with PMHx [...] QID #hypothyroidism -levothyroxine 137mcg PO qdaily Agus uH MD saw and evaluated this patient and aggress with my assessment and plan as documented above. Jessica Lopez MD Anesthesiology, PGY-1 Pager [phone] lechano, MD Agus - 0 05/05/2013 2:15 PM PDT 4 GENERAL MEDICINE ATTENDING PROGRESS NOTE ADMIT DATE: 05/02/2013 8:40 PM TODAY'S DATE: 05/05/2013 (HOSPITAL DAY 3) I personally interviewed the patient, performed the beverly elements of the physical examinatio n, reviewed new lab data in EPIC, looked at any new radiology images and have developed an u pdated assessment and plan together with the [facility] residents, Dr. Lopez/Lydia. Please see e housestaff [...] Bipolar affective disorder 11) Developmental delay AGUS HU MD Divisional Storekeepermachine operator replanter Division of Hospital Medicine Department of Internal Medicine [facility] DEPARTMENT: Hosp- [id number] Place of Service: Date of Service: 05/05/2013 CSN: [id number] Modifiers:GC Resident Involved: Yes Suggested CPT: 31671 Subsequent Visit Exp Prob Foc/Mod Complexity 25 min azo, Too Bruno MD - 0 05/05/2013 11:22 AM PDT General Internal Medicine 4 Resident Progress Note Hospital Day:3 Author; TOO LOPEZ MD Attending Physician: Agus Hu MD 24 Hour Events: Pt reported to have another seizure yesterday at 5pm. No other seizure activity reported la st night. Subjective: Pt slept comfortably last night [...] no masses, lesions Assessment and Plan Ms. Lane is a 47 year old female with [...] QID #hypothyroidism -levothyroxine 137mcg PO qdaily Agus Hu MD saw and evaluated this patient and aggress with my assessment and plan as documented above. Jessica Lopez MD Anesthesiology, PGY-1 Pager [phone] Jay Jay Howell MD - 05/04/2013 5:22 [...] Jay Grimaldo MD Internal Medicine, PGY-3 Pager [phone] Deion Lomeli - 2012 4:52 PM PDTTransthoracic echocardiogram completed. Final report to follow. gus Hu MD - 013 1:35 PM PDT 4 GENERAL MEDICINE ATTENDING [...] 4 residents, Dr. Lopez/Dillan. Please see the mesfin notes for full details. I agree with [...] there will be any treatment available to h er besides CPAP compliance, diuresis and smoking [...] Bipolar affective disorder 11) Developmental delay AGUS HU MD Divisional Storekeepermachine operator replanter Division of Hospital Medicine Department of Internal Medicine [facility] DEPARTMENT: Hosp- [id number] Place of Service: - Date of Service: 05/04/2013 CSN: [id number] Modifiers:SEUN Resident Involved: Yes Suggested CPT: 36323 Subsequent Visit Exp Prob Foc/Mod Complexity 25 min aDaniel hannah MD - 8:47 AM PDT Neurology Follow Up Note Author: RAYNE HAMLIN MD Attending: Agus Hu MD Date: 05/04/2013 8:48 AM Patient: Keo Lane [facility] Day: 2 ID: Keo Lane is a 47 yo female with a PMH of pulmonary HTN, morbid obesity, COPD, HTN, bipolar disorder/PTSD and seizure disorder consulted for possible seizure. 24 Hr Events: - seizure lasting 20-30 seconds, post-ictal Subjective: Ms. Lane reports that she was told she had [...] Oral QPM Pertinent Imaging: None Assessment: Keo Lane is a 47 y.o. year old female consulted for reported seizure activi ty on 05/03/2013. Ms. Lane is a poor historian when it comes to her seizure activity and she is unable to identify aggravating and alleviating factors leading up to her seizures. She c annot contribute information about her medical history as far as diagnoses and documentation on her prescriptions up to this point. Ms. Lane has been on Depakote since September 2012 [...] BID), pending sensitivities Staffed with the Rudi Watkins MD, who agrees with my assessment and plan Rayne Hamlin MD Department of Neurology PGY-1 Pager [phone] PGY-4 Addendum I can follow as her outpatient neurologist if necessary. Daniel Cerna MD PGY-4 Neuro Jay Jay Howell MD - 0 05/03/2013 4:05 PM PDTSignificant [...] she knew where she was, [facility] said "[facility]." She thought it to be 2008. [...] PM PDTCalled by primary team about: Keo Lane who is a 47 yo with known [...] today. This patient was staffed with Dr. Hu, who agrees with the A+P. Jay Jay Grimaldo MD Internal Medicine, PGY-3 Pager [phone] elenAviva - 2012 2:19 PM PDT INPATIENT PROGRESS NOTE Hospital Day:2 Author: AVIVA WATKINS Attending Physician: Agus Hu MD 24-hour events -- Episode of seizure with full body shaking 20s in duration per nursing report. At [facility] ruby luation, found to be post-ictal (AxO x 2) -- Neuro consulted, recs for levels -- Valproic acid 33 (L), phenytoin level pending -- Lozano removed for UTI started in cipro 250 [...] 3 results) Recent Labs 05/02/13220905/03/1335 05/04/13 0655 WBC 8.5 7.8 5.9 HB 16.1* 14.7 14.2 HCT 49.3* 45.6 43.1 PLT 153 152 129* NEUTROPERC 82* -- -- LYMPHPERC 14* -- -- MONOPERC 4 -- -- BASOPERC 0 -- -- EOSPERC 0* -- -- Chemistries: Last 72 Hours (or 3 results): Recent Labs 05/03/1373405/03/13 1832 05/04/13 0655 NA 140 141 144 [...] 2.7* TP 7.2 6.2* 5.8* -- 05/04 84H Lab Results Component Value Date INRPT [...] be clinically considered" Assessment and Plan Ms. Lane is a 47 y.o with a history [...] subsequently started on phenytoin. Last seizure per contract processor was 03/26 but contract processor was unaware that she had a seizure [...] agrees with my assessment and plan. Aviva Watkins MS4, Pager [phone] Alexandrea, Too Bruno MD - 05/03/2013 1:52 PM PDT General Internal Medicine 4 Resident Progress Note Hospital Day:1 Author; TOO LOPEZ MD Attending Physician: Agus Hu MD 24 Hour Events: Patient admitted overnight [...] to knee B/L, +1 edema up to [facility] b/l Psychiatric: appropriate mood and affect, cooperative [...] BID for 3 day course -consider removing lozano after measuring UOP s/p diuresis today #GLORIA - CPAP at night #FEN -order regular diet #mordid obesity #seizure -depakote 500mg PO qdaily #Bipolar disorder/PTSD -paxil 20mg PO qdaily -risperdal 4mg PO qbedtime -wellbutrin SR 200mg PO BID #COPD/smoking -nicotine patch -combivent inhaler 2 puff QID #hypothyroidism -levothyroxine 137mcg PO qdaily Agus Hu MD saw and evaluated this patient and aggress with my assessment and plan as documented above. Jessica Lopez MD Anesthesiology, PGY-1 Pager [phone] documented in this enco unter H&P Notes Onur Schwab MD,MPH - 05/10/2013 1:42 PM PDTFormatting of this note might be diff erent from the original. INTERVENTIONAL CARDIOLOGY Pre Procedure History and Physical PCP: Gela Trimble NP Referring Core Sucker: Tello Gr MD Cath Attending: Allison Brody M.D. Brief HPI: Ms. Lane, 47 yo female with history of COPD (on home O2), severe GLORIA on CPAP, morbid obesity hypothyroidism, seizure disorder and bipolar/PTSD who presented for worsenin g dyspnea and volume overload, her echocardiogram showed normal LV systolic function is nor mal, severely enlarged right ventricle and severely elevated right ventricular systolic pres sure suggestive of pulmonary arterial hypertension. Patient had CTA chest at OSH which show ed no evidence of pulmonary embolism. Patient has been scheduled for RHC as work-up for pul monary hypertension. History of Risk Factors: Current/ Recent Smoker: yes Hypertension: yes Dyslipidemia: no Family History of Premature CAD: unknown Prior AK: no Prior Heart Failure: no Prior Valve Surgery/Procedure: no Prior PCI: no Prior CABG:no Renal Impairment: no Hemodialysis: no Cerebrovascular Disease: no Peripheral Arterial Disease: no Chronic Lung Disease: yes Diabetes Mellitus: no Allergies Allergen Reactions Erythromycin Flagyl (Metronidazole) Penicillins Sulfa (Sulfonamide Antibiotics) Current Facility-Administered Medications Medication Dose Route Frequency Provider Last Rate Last Dose acetaminophen (aka TYLENOL) tablet 500 mg 500 mg Oral Q6H PRN Judi Houston MD 50 0 mg at 05/09/132027 albuterol (aka PROVENTIL, VENTOLIN) 90 mcg/actuation inhaler 2 Puff 2 Puff Inhalation QID Too Lopez MD 2 Puff at 05/10/13 1327 ascorbic acid tablet 500 mg 500 mg Oral BID Judi Houston MD 500 mg at 05/10/13 0 816 cholecalciferol (Vitamin D3) (aka VITAMIN D-3) tablet 2,000 Units 2,000 Units Oral MARIBELL LY Judi Houston MD 2,000 Units at 05/10/[address] (aka DEPAKOTE) tablet 500 mg 500 mg Oral TID Too Lopez MD 500 mg a t 05/10/13 0820 docusate sodium (aka COLACE) capsule 50 mg 50 mg Oral DAILY Judi Houston MD 50 m g at 05/10/13 0816 ferrous sulfate tablet 325 mg total salt 325 mg total salt Oral BID Aramis Kimble 325 mg total salt at 05/10/13 0816 folic acid (aka FOLVITE) tablet 1 mg 1 mg Oral DAILY Jay Jay Grimaldo MD 1 mg at 09/12 0817 furosemide (aka LASIX) injection 40 mg 40 mg Intravenous BID ( and ) Agus smart MD 40 mg at 05/10/13 0815 gabapentin (aka NEURONTIN) tablet 600 mg 600 mg Oral TID Judi Houston MD 600 mg at 05/10/13 0817 heparin injection 5,000 Units 5,000 Units Subcutaneous Q8H Judi Houston MD 5,000 Units at 05/09/13 2340 levothyroxine tablet 137 mcg 137 mcg Oral DAILY Judi Houston MD 137 mcg at 05/10 0816 loratadine (aka CLARITIN) tablet 10 mg 10 mg Oral DAILY Judi Houston MD 10 mg at 05/10/13 0816 nicotine (aka NICOTROL) 21 mg/24 hr patch 1 Patch 1 Patch Transdermal DAILY Judi Hosuton MD 1 Patch at 05/10/13 0815 omeprazole (aka PRILOSEC) capsule 20 mg 20 mg Oral QAM Judi Houston MD 20 mg at 05/10/13 0816 PARoxetine (aka PAXIL) tablet 20 mg 20 mg Oral DAILY Judi Houston MD 20 mg at 0816 risperiDONE (aka RISPERDAL) tablet 4 mg 4 mg Oral HS Judi Houston MD 4 mg at 08/12 2340 simvastatin (aka ZOCOR) tablet 20 mg 20 mg Oral QPM Judi Houston MD 20 mg at 08/12 thiamine tablet 100 mg 100 mg Oral DAILY Jay Jay Grimaldo MD 100 mg at 05/10/13 0816 ROS: Please see HPI and PMH. Comprehensive ROS otherwise negative by interview. Physical Exam: BP 102/66 | Pulse 78 | Temp 35.7 C (96.2 F) | RR 18 | Ht 1.499 m (4' 11") | Wt 106.9 kg (235 lb 10.8 oz) | SpO2 92% | BMI 47.57 kg/(m^2) Physical Examination: General: healthy, alert, mild distress and cooperative, obese HEENT: [place] conjuctivae and moist tongue Neck: short, difficult to assess JVP Chest: bilateral scattered wheezes CVS exam: S1, S2 normal, no murmur, click, rub or gallop, regular rate and rhythmAbdomen: no hepatomegaly, nontender to palpation, no masses, aorta not grossly enlarged Extremities: Bilateral LE edema, +2 Neuro: grossly normal LABS: Lab Results Component Value Date WBC 6.8 05/10/2013 HB 16.1 05/10/2013 HCT 49.2 05/10/2013 PLT 127 05/10/2013 MCV 99.6 05/10/2013 RDW 15.3 05/10/2013 NA 140 05/10/2013 K 3.6 05/10/2013 CL 100 05/10/2013 BICARB 32 05/10/2013 BUN 18 05/10/2013 CR 0.79 05/10/2013 GLU 104 05/10/2013 CA 8.5 05/10/2013 TSH 3.90 05/03/2013 TTE: Transthoracic Echocardiographic Report Final Impressions: 1. The left ventricular cavity size is decreased. 2. The LV systolic function is normal. 3. Visually estimated left ventricular ejection fraction is 60 - 65%. 4. Severely enlarged right ventricle. Mildly reduced systolic function. 5. Severely elevated right ventricular systolic pressure. 6. Severely dilated right atrium. 7. Study strongly suggestive of pulmonary arterial hypertension. 8. Small pericardial effusion. Assessment: Ms. Lane, 47 yo female with history of COPD (on home O2), severe GLORIA on CPAP, morbid obesity hypothyroidism, seizure disorder and bipolar/PTSD who presented for worsenin g dyspnea and volume overload, her echocardiogram showed normal LV systolic function is nor mal, severely enlarged right ventricle and severely elevated right ventricular systolic pres sure suggestive of pulmonary arterial hypertension. Plan: 1. Procedure explained. Risks, benefits and alternatives discussed. Questions answered. In formed consent obtained. - Plan proceed with Right Heart Catheterization. Matthew Schwab MD leAgus calero MD - 05/02/2013 9:14 PM PDTGENERAL MEDICINE ATTENDING ADMISSION ATTESTATION STA TEMENT ADMIT DATE: 05/02/2013 8:40 PM TODAY'S DATE: 05/03/2013 (HOSPITAL DAY 1) I personally interviewed the patient, performed the beverly elements of the physical examinatio n, have developed an updated assessment and plan together with the [facility] resident, Dr. Houston. Pertinent Hx: as per resident note Exam notable for: BP 120/63 | Pulse 66 | Temp 36.8 C (98.2 F) | RR 18 | Ht 1.499 m (4' 11") | Wt 106.9 kg (235 lb 10.8 oz) | SpO2 96% | BMI 47.57 kg/(m^2) Exam notable for obesity and volume overload. JVP difficult to see due to thick neck. No heaves, physiologic split s2 still present Lungs mostly clear with no wheezing heard. Labs/imaging notable for: cxr with notable right sided enlargement. EKG with RV,H right axis Assessment/Plans: Patient Active Hospital Problem List: 1) *Dyspnea: likely due to pulmonary hypertension, unclear reason for acute decompensation , unless it is just from volume overload tipping her over the physiologic edge. Could have had PE, but other presenting symptoms are not present. Will closely follow. 2) Pulmonary hypertension: Almost certainly multifactorial and largely WHO group 3 causes (COPD, untreated GLORIA, obesity hypoventilation), will further investigate other causes after an echo here confirms. Ideally she would have a RHC to look at a wedge pressure since the TTE was read as normal systolic LV function but with some diastolic dysfunction, adding a gr oup 2 cause for pulmonary HTN. 3) Cor pulmonale, chronic: see above. 4) Right heart failure due to pulmonary hypertension: see above: will diurese slowly. 5) Sleep apnea 6) Morbid obesity with BMI of 45.0-49.9, adult 7) COPD (chronic obstructive pulmonary disease) with chronic bronchitis 8) Anasarca 9) Seizure disorder 10) Bipolar affective disorder 11) Developmental delay 12) hypothyroid AGUS HU MD Divisional Storekeepermachine operator replanter Division of Hospital Medicine Department of Internal Medicine [facility] DEPARTMENT: Hosp- [id number] Place of Service: Date of Service: 05/03/2013 CSN: [id number] Modifiers:GC Resident Involved: Yes Suggested CPT: 13998 Initial Visit Comp/High Complexity 70 min ay, Judi Hein MD - 05/02/2013 9:14 PM PDT General Medicine HISTORY AND PHYSICAL Author: JUDI HOUSTON MD Attending Physician: Agus Hu MD PCP: Gela Trimble NP Chief complaint: SOB and edema ID: 47 year old female with pmh/o chronic smoking, morbid obesity, GLORIA, COPD ( on home O2), bipolar/PTSD, DD, hypothyroidism, HLD, and seizure disorder (on AED's) who in transferred f rom OSH after referral from PCP today after presenting with worsened edema and dyspnea with subsequent echo showing pHTN per report. HPI: Patient lives at [facility] which is Group adult home in [place], [place]. Care give r at bed side during interview. States that over the past month(s) patient's breathing has b ecome increasingly short and has gained "at least 20 pounds". Also with worsened LE edema. She initially presented to [facility] on after presented with recurrent s eizure in setting of known seizure disorder. Head CT scan was reportedly normal and EEG show ing no seizure but mild global encephalopathy. She has also had recent urinary tract infecti on that has been treated to resolution apparently. A TTE on 03/27 showed LV with normal ejection fraction with diastolic dysfunction (grade 1). There was e/o right heart dysfunction with with marked enlargement and hypertrophy of RV w ith paradoxal septal wall movement with flattening of interventricular septum. RVSP 75 +. A lso with moderate to severe TR as well and small posterior pericardial effusion with small c ollection of fluid in right pleural space. She had sleep index with AHI in severe range an d was started on CPAP about a week ago but not sure if she has been using regularly. Transferred to [facility] from OSH-ED after presenting this am with worsened SOB and dyspnea and increased swelling legs. She was noted to have 4+ pitting edema from ankles to hips as mild cyanosis in extremities. Her lung exam with wheezes in lower lobes. A lozano catheter was guillermo benjie. In ambulance pressures dropped from 94/68 --> 66/40 as well as O2 sat form 90% in 4 Liters to 83% on 4 Liters. EMS concerned for acute pulmonary edema and was given 20 mg IV lasix wit h 1500 milliliters of urine with improvement in pressures to 100/80s. Initial vitals on arrival at [facility] were T 36.6 BP 110/69 P 74 RR 20 Spo2 90-93 % on 5 LNC At beside patient states she has had no fevers or chills recently. States that swelling in her legs is persistant and is worse than normal espiecially this morning. States was short of breath earlier during ambulance ride that has now improved since getting IV lasix in [facility] e. Staes that she feels well currently and denies SOB. No CP of any kind even with breathing deep. No subjective wheezing. States no belly pain. Prior to about 1 month ago had no exerci se limitation per her and caregiver and that for the last month normally can walk about 30 f eets but is then limited by SOB. This has worsened to a few steps that last several days. No seizures 1 month ago. 1 month ago could lay flat in bed and no has sit straight up in b ed in order to breath comfortably. States weight has been rising but doesn't know how much PMH: 1. GLORIA with pHTN 2. Morbid obesity 3. Bipolar/PTSD 4. Developmental Delay/Mental Retardation 5. Osteoarthritis 6. Remote H/o polysubstance abuse including etoh, meth, and IVDU 7. GERD 8. Vitamin D deficiency 9. Current smoking 10. Seizure disorder 11. HLD 12. Hypothyroidism HABITS: T: Smoke age 2-3 ppd since age 10. Now 3-4 cigs day.. E: Etoh: Remote but heavy D: H/o IVDU 15 years inject meth and cocaine nothing since SH: Son lives in [place] who is 30 and estranged. Friend Desmond Barbabubba . FH: n/c ROS: As per HPI, all other ROS negative. Prior to Admission Medications Medication albuterol 90 mcg/actuation Inhalation HFA Aerosol Inhaler Inhale every four hours as needed. albuterol-ipratropium 18-103 mcg/actuation Inhalation Aerosol (Aero) Inhale 2 Puffs four times daily as needed. ascorbic acid 500 mg Oral tablet Take 500 mg by mouth two times daily. buPROPion SR 200 mg Oral tablet extended release Take 200 mg by mouth two times daily. cetirizine 10 mg Oral tablet Take 10 mg by mouth once daily. cholecalciferol, Vitamin D3, 1,000 unit Oral tablet Take 2,000 Units by mouth once daily. divalproex DR 500 mg Oral tablet,delayed release (DR/EC) Take 500 mg by mouth once daily. docusate sodium 50 mg Oral capsule Take 50 mg by mouth once daily. ferrous sulfate 325 mg (65 mg iron) Oral tablet Take 325 mg by mouth two times daily. gabapentin 600 mg Oral tablet Take 600 mg by mouth three times daily. levothyroxine 137 mcg Oral tablet Take 137 mcg by mouth once daily. meloxicam 15 mg Oral tablet Take 15 mg by mouth once daily. omeprazole 20 mg Oral capsule,delayed release(DR/EC) Take 20 mg by mouth once daily in the morning. PARoxetine 20 mg Oral tablet Take 20 mg by mouth once daily. phenytoin ER 100 mg Oral capsule Take 100 mg by mouth three times daily. risperiDONE 4 mg Oral tablet Take 4 mg by mouth once daily at bedtime. simvastatin 20 mg Oral tablet Take 20 mg by mouth once daily in the evening. traMADol 50 mg Oral tablet Take 50 mg by mouth every six hours as needed. Allergies Allergen Reactions Erythromycin Flagyl (Metronidazole) Penicillins Sulfa (Sulfonamide Antibiotics) Physical Exam Pulse 78 | Temp 36.9 C (98.4 F) | RR 20 | Ht 1.499 m (4' 11") | Wt 106.9 kg (235 lb 10. 8 oz) | SpO2 90% | BMI 47.57 kg/(m^2) Pulse Av Min: 78 Max: 78 Temp Av.9 C (98.4 F) Min: 36.9 C (98.4 F) Max: 36.9 C (98.4 F) Resp Av Min: 20 Max: 20 SpO2 Av % Min: 90 % Max: 90 % Intake/Output Summary (Last 24 hours) at 05/02/132114 Last data filed at 05/02/131999 Gross per 24 hour Intake 5 ml Output 1250 ml Net -1245 ml General Appearance: NAD sitting straight up in bed HEENT: NCAT, PEERLA, MMM, anicteric, Posterior pharynx clear Neck: soft, plethoric, FROM Respiratory: CTAB with mild bibasilar rales. Cardiovascular: RRR with systolic murmur at LUSB. JVP 12 Gastrointestinal: Obese, NABS, NTTP, No organomegaly appreciated Skin: Dry and warm, no rashes. Ext: 2+ pitting edema to knee bilaterally with some dependant hit edema bilaterally. No cya nosis. Extremities warm. Neurologic: Awake and well oriented. Interative and appropriate. Moving all extremities Psychiatric: Euthymic. Data: CBC with diff last 72 hours (or 3 results) Recent Labs 05/02/13 2210 WBC 8.5 HB 16.1* HCT 49.3* PLT 153 NEUTROPERC 82* LYMPHPERC 14* MONOPERC 4 BASOPERC 0 EOSPERC 0* Chemistries: Last 72 Hours (or 3 results): Recent Labs 05/02/13 2210 NA 139 K 4.7 CL 102 BICARB 23 BUN 23* CR 0.93 GLU 121* CA 8.8 Liver Tests: Last 72 hours (or 3 results) Recent Labs 05/02/13 2210 AST 78* ALT 113* TBILI 0.5 AP 227* ALB 3.0* TP 7.2 Lab Results Component Value Date INRPT 1.23* 05/02/2013 LABS from OSH: BNP 220 Trop negative d dimer 307(normal there is < 230), abg on 2l 7.44// IMAGING CXR: No focal consolidation appreciated with no signs of pulmonary edema. Opacity on Latera l view in lower lobe appears 2/2 skin fold/redudancy. No effusions appreciated. EKG: Rate 71 bpm NSR , RAD, Low voltage. No concernig ST/TWI. Other tests: TTE on 03/27 showed LV with normal ejection fraction with diastolic dysfunction (grade 1). There was e/o right heart dysfunction with with marked enlargement and hypertrophy of RV wit h paradoxal septal wall movement with flattening of interventricular septum. RVSP 75 +. Als o with moderate to severe TR as well and small posterior pericardial effusion with small col lection of fluid in right pleural space. Mild MR Assessment : 47 year old female with pmh/o chronic smoking, morbid obesity, GLORIA, COPD ( on home O2), bi polar/PTSD, DD, hypothyroidism, HLD, and seizure disorder (on AED's) who in transferred from OSH after referral from PCP today after presenting with worsened edema and dyspnea with sub sequent echo showing pHTN per report. Concern for severe pHTN with e/o right heart failure likely secondary to long untreated GLORIA . She may have had flash pulmonary edema in route with desaturation and hypotension respons sofi to IV lasix however no evidence of pulmonary edema currently with fairly clear chest x-r ay and nearly clear lungs on exam. She is grossly/severly volume overloaded surely 2/2 to h er severe pHTN. Unclear why acutely worsened. Had mildly + d-dimer at OSH however not other stigmata of PE which could indeed course acute worsening of right heart strain/failure. Will diuresis for now and attempt optimize volume state and maintain CPAP as well and repeat TTE in am with likely cardiology consultation for potential RHC. Plan: # Volume Overload and pulmonary hypertension: RVSP 75+ on recent echo with etiology likely long standing untreated sever GLORIA. Volume overload and what sounds like flash pulmonary maite ma in route that responded well to IV lasix. Patient with reported cyanosis at OSH however is pink and warm for me on exam and don't feel she is currently in RHF. Patient also with k nown COPD also could be contributing pHTN. - TTE in am - Cardiology consult in am for RHC potentially - IV lasix intermittently goal net negative 1-2 Liter daily - Elevate legs and wrap. - 2 liter fluid restriction - Daily weights # GLORIA with pHTN in setting of COPD: AHI recently with 64 events per hour in severe range. Don't have PFT info currently unsure if ever done. She may have been being set of these in t he near future per notes sent with patient. - CPAP at bedside and patient comfortable using. - TTE tomorrow - Continue home combivent and albuterol (consider changing to josie + albuterol) - Needs PFT's if not done recently. # Elevated LFTS: Unclear of chronicity with minimal records. Likely congestive hepatopathy in the setting of severe pHTN and Right heart dysfunction. Hepatic steatosis also could be contributing. Has mildly elevated INR and low albumin as well. Patient with remote h/o IVDU and at risk for HCV and will send. - Hep C ordered - Diuresis as above - Trend - Consider Abd US # Bipolar/PTSD/DD: Patient with long psych history apparent that is stable currently per c aregiver at beside. She is pleasant in interactive with me at bedside with no agitation. Wan l continue psych cocktail per home routine. - Cont home Bupropion 200 mg BID - Cont home Risperidone 4 mg QHS - Continue home paroxetine 20 mg daily # Osteoarthritis/chronic pain: - Continue home gabapentin 600 mg TID - Hold meloxicam and torodol for now - APAP prn # GERD - Continue home omep 20 mg ER daily # Vitamin D deficiency - Cont home dose # Current smoking - Nicotine patch # Seizure disorder - Continue home Depakote and dilantin # HLD - Continue home simvastatin # Hypothyroidism - continue home levothyroxine 137 - TSH in am F: 2 L fluid restriction , cardiac diet A: None S: home risperidone QHS T: SQ Hep H: Elevated U: home omep G: NA Code Status: Full Code Pt to be staffed with Attending, Dr. Hu, within 24 hours who agrees with the above A /P. JUDI HOUSTON MD Internal Medicine PGY-2 Pager [phone] documented in this en counter Procedure Notes Other, Faculty - 05/11/2013 8:40 AM PDTAssociated Order(s): CARDIOLOGYElectronically shereen d by Faculty Other at 05/11/2013 8:40 AM Allison Pandey MD - 05/10/2013 2:13 PM PDTAss ociated Order(s): RIGHT HEART CATHETERIZATIONProcedure(s): RIGHT HEART CATHETERIZATIONCARDIA C MED SPA MANAGER PATIENT NAME: Keo Lane [facility] #: [id number] AGE: 47 y.o. SEX: female CATH DATE: 05/10/2013 PERFORMING PHYSICIAN: Estela Brody FELLOWS: Jose Rafael Sams, Matt Schwab REFERRING PHYSICIAN: Xiang Molinalie Lane is a 47 y.o. patient with obesity, GLORIA, COPD on home O2, bipolar/PTSD, develop mental delay, hypothyroidism, HLD, and seizure disorder presented with worsening dyspnea and LE edema. TTE showed normal LV EF and severe elevation of RVSP 110. She is referred for rig ht heart catheterization to assess filling pressures, pulmonary pressures, and cardiac outpu t. Procedure 1. Venous Acces 2. Right Heart Catheterization Procedure Description: Written informed consent was obtained. Vascular ultrasound of access site performed with Si te-rite device. The patient was prepped and draped in the usual sterile fashion. 1% lidocain e was injected locally into the neck. Using the standard Seldinger technique, an 8 Tunisian sh eath was placed in the jugular vein. Right heart catheterization was performed with a VIP Sw an Justina catheter with serial measures of cardiac pressures in the right atrium, right ventri rustam, pulmonary artery, and pulmonary capillary wedge position. Cardiac output and index via Rehan method were performed. Inhaled nitric oxide was administered at 20 PPM for 5 minutes fo llowed by 40 PPM for 5 minutes. Measurements were repeated. The catheter was subsequently re moved. Conclusions Elevated right sided and normal left sided filling pressures with severe pulmonary hyperten dariusz (mean PAP 63 mmHg, PVR 26 FUENTES) and severely depressed cardiac index (Rehan CI 1.0). There was no response to inhaled nitric oxide. Findings BASELINE on 2L O2 RA: mean 17, a 22, v 19 mmHg RV: 109/22 mmHg PA: 105/47 mmHg Mean PA: 63 mmHg Wedge: mean 10, a 10, v 15 mmHg Blood pressure: 132/79 mmHg. Heart Rate 84 bpm Pulmonary arterial saturation was 50.2 % Hemoglobin 17.0 gm/dl Rehan CO 2.07 L/min Rehan CI 1.04 L/min/m2 PVR 25.6 FUENTES SVR [id number] dsc-5 Inhaled Nitric Oxide 40 PPM with 2L O2 PA: 107/47 mmHg Mean PA: 63 mmHg Wedge: mean 8, a 11, v 15 mmHg Blood pressure: 1115/79 mmHg. Heart Rate 86 bpm Pulmonary arterial saturation was 49.0 % Hemoglobin 17.3 gm/dl Rehan CO 2.03 L/min Rehan CI 1.03 L/min/m2 PVR 27.1 FUENTES Fluoroscopy Time: 2.4 minutes Total DAP: 1170.0 cGycm2 Estimated Blood Loss: minimal Complications: none ATTENDING SURGEON'S ATTESTATION: Pursuant to Federal Medicare Requirements, I certify that Allison Brody M.D. was present for the entire procedure, performed the procedure, and participated directly in the generation of this report. MD Allison Yañez M.D. Divisional Storekeepermachine operator replanter Division of Cardiovascular Medicine [facility] ther, Faculty - 05/08 9:18 AM PDTAssociated Order(s): SPIROMETRY, PULM FUNCTION LAB ther, Faculty - 05/04/2013 8:29 PM PDTAssociated Order(s): RADIOLOGY ther, F aculty - 05/04/2013 5:58 PM PDTAssociated Order(s): TRANSTHORACIC ECHOCARDIOGRAM, ADULTElec tronically signed by Faculty Other at 05/04/2013 5:58 PM PDTdocumented in this encounter Consult Notes Lexie Cook, Lucy - 05/11/2013 12:06 PM PDT PHARMACY SERVICES: ADMISSION MEDICATION RECONCILIATION ADDENDUM Prior to Admission Medications Medication albuterol 90 mcg/actuation Inhalation HFA Aerosol Inhaler Inhale every four hours as needed. albuterol-ipratropium 18-103 mcg/actuation Inhalation Aerosol (Aero) Inhale 1 Puff every six hours as needed. ascorbic acid 500 mg Oral tablet Take 500 mg by mouth two times daily. buPROPion SR 200 mg Oral tablet extended release Take 200 mg by mouth once daily in the morning. cetirizine 10 mg Oral tablet Take 10 mg by mouth once daily. cholecalciferol, Vitamin D3, 1,000 unit Oral tablet Take 2,000 Units by mouth once daily. divalproex DR 250 mg Oral tablet,delayed release (DR/EC) Take 250 mg by mouth once daily in the morning. divalproex DR 500 mg Oral tablet,delayed release [...] Apply 1 Patch to skin once daily. Conception-3 Fatty Acids-Vitamin E (FISH OIL) 1,000 mg Oral capsule Take 1 Cap by mouth two times daily. omeprazole 20 mg Oral capsule,delayed release(DR/EC) Take 20 mg by mouth once daily in the morning. PARoxetine 20 mg Oral tablet Take 20 mg by mouth once daily. phenytoin ER 100 mg Oral capsule Take 100 mg by mouth three times daily. risperiDONE 4 mg Oral tablet Take 4 mg by mouth once daily at bedtime. simvastatin 20 mg Oral tablet Take 20 mg by mouth once daily in the evening. spironolactone 25 mg Oral tablet Take 25 mg by mouth two times daily. The updated prior to admissions medication list has been acknowledged and I have found it t o be complete and accurate. This INDUCTION HEATING EQUIPMENT SETTER list has been updated to reflect any discrepancies found during the med rec interv iew. Note - Updated Divalproex regimen per facility MAR: 250 mg every morning and 500 mg ever y evening A total of 15 minutes were spent reviewing the prior to admission medication list note writ ten by retail pharmacy merchandiser, Sanjana For any further questions regarding this information contact pharmacy, pager #[phone] Thank you, Lexie Cook Pharm.D. [place] [phone] Sanjana Baker - 0 05/11/2013 12:06 PM PDT Pharmacy Services: Admission Medication Reconciliation Medication Source/Reliability: Did not speak to patient. [id number]. Sent their MAR I reviewed patient's home medication list and their pharmacy medication print out and found it to be accurate with these following exceptions: Discontinued Prior to Admission: Please remove: 1. Tramadol 50 mg tablet Take 50 mg by mouth every six hours as needed. Note: no current order on MAR Medication Omissions: Please Add: 1. Colace 50 mg tablet Take one capsule by mouth daily Note: per DEC 2. Divalproex 250 DR Tablet Take one tablet by mouth every morning Note: per DEC 3. Estradiol 1 mg tablet Take two tablets by mouth daily Note: per DEC 4. Fish oil 1,200 mg softgel capsule Take capsule by mouth twice daily Note: per DEC 5. Nicotine 7 mg atch Topically apply one patch daily for 6 weeks. 6. Spironolactone 25 mg tablet Take one tablet by mouth two times daily Changes to Dose/Sig/Route of Medications: Please Change: 1. Divalproex DR 500 mg tablet Take 500 mg by mouth once daily at bedtime Note: per DEC 2. Gabapentin 300 mg tablet (was 600) Take 2 capsules (600 mg) by mouth three times daily Note: per DEC 3. Combivent inhaler Inhale one puff every six hours (was 2 puffs four times daily) Note: per dec 4. Albuterol sulfate inhaler 90mcg/actuation Inhale 2 puffs 2-3 times a day as needed for cough and shortness of breath (was every four hours as needed Note: per DEC OTC/Supplement/Herbal: Please Add: 1. Tylenol PM extra-strength caplet 500 mg Take one caplet by mouth at bedtime as needed Note: per DEC Additional Information: Allergies: Was unable to speak to patient. [facility] has the allergies below on file, with the addition of peas. Allergies Allergen Reactions Erythromycin Flagyl (Metronidazole) Penicillins Sulfa (Sulfonamide Antibiotics) Keo Lane is a 47 year old female admitted to for volume overload, pulmonary HTN. The patient s most recent medication information was obtained from [facility] [place], where the patient lives. Pharmacy Preferences: No preferred pharmacy on file. [facility] arranges for the patients medications The above changes will be reviewed with the medication reconciliation pharmacist. The patie nt s prior to admission medication list will be updated accordingly. A total of 60 minutes were spent on medication reconciliation. Current prescription medicat ions, over the counter products, supplements and herbals use and allergies were validated. A ll questions concerning medications were addressed. For any further questions regarding this information contact the Medication Reconciliation Pharmacist, pager #[phone] Thank you, Sanjana Farah Student pager ID number [phone] PharmD candidate year [id number] Hung Mccrary MD - 05/11/2013 8:41 AM PDT INPATIENT PULMONARY FOLLOW UP NOTE AUTHOR: AYE CARRILLO MD ATTENDING PHYSICIAN: Zeb Brown MD INTERVAL HX: -Right heart cath yesterday with severe pulmonary hypertension and normal left sided fillin g pressures -Continues to require moderate assistance x2 for ADLs. Working with PT and OT. -Maintains O2 sats >90% on 2L (baseline home use). Refusing CPAP. -Continues aggressive diuresis MEDICATIONS: Current Inpatient Medications Medication Dose Route Frequency [...] tablet 100 mg 100 mg Oral DAILY PHYSICAL EXAM: Last Vitals: BP 104/63 | Pulse 77 | Temp 37 C (98.6 F) | RR 18 | Ht 1.499 m (4' 11") | Wt 106.9 kg (235 lb 10.8 oz) | SpO2 96% | BMI 47.57 kg/(m^2) 24 Hour Vital Min/Max: Systolic (24hrs), Av mmHg, Min:94 mmHg, Max:117 mmHg Diastolic (24hrs), Av mmHg, Min:49 mmHg, Max:66 mmHg Pulse Min: 70 Max: 88 Temp Min: 35.7 C (96.2 F) Max: 37.5 C (99.5 F) Resp Min: 16 Max: 18 SpO2 Min: 92 % Max: 96 % on 2L GEN: Obese middle aged female. Sitting in bed, smiling and conversational. HEENT: PERRLA. Oropharynx clear RESP: CTAB. No wheezes or rhonchi. CV: RRR with prominent S2. No m/r/g. No JVD. ABD: Obese, soft, nd, nt. Normal bs. EXT: 1+ edema in LE. No cyanosis or clubbing. LABS: CBC with diff last 72 hours (or 3 results) Recent Labs 05/09/13 0718 05/10/13 0736 05/11/13 0750 WBC 8.2 6.8 6.6 HB 16.5* 16.1* 16.1* HCT 50.6* 49.2* 49.6* PLT 131* 127* 136* Chemistries: Last 72 Hours (or 3 results): Recent Labs 05/09/13 0718 05/10/13 0736 05/11/13 0750 NA 139 140 138 K 3.9 3.6 3.9 CL 99 100 99 BICARB 30 32 29 BUN 20 18 22* CR 0.82 0.79 0.90 GLU 98 104* 105* CA 9.3 8.5* 9.4 MG 1.9 1.9 2.0 Right Heart Cath (05/10): BASELINE on 2L O2 RA: mean 17, a 22, v 19 mmHg RV: 109/22 mmHg PA: 105/47 mmHg Mean PA: 63 mmHg Wedge: mean 10, a 10, v 15 mmHg Blood pressure: 132/79 mmHg. Heart Rate 84 bpm Pulmonary arterial saturation was 50.2 % Hemoglobin 17.0 gm/dl Rehan CO 2.07 L/min Rehan CI 1.04 L/min/m2 PVR 25.6 FUENTES SVR [id number] dsc-5 Inhaled Nitric Oxide 40 PPM with 2L O2 PA: 107/47 mmHg Mean PA: 63 mmHg Wedge: mean 8, a 11, v 15 mmHg Blood pressure: 1115/79 mmHg. Heart Rate 86 bpm Pulmonary arterial saturation was 49.0 % Hemoglobin 17.3 gm/dl Rehan CO 2.03 L/min Rehan CI 1.03 L/min/m2 PVR 27.1 FUENTES ASSESSMENT/RECOMMENDATIONS: Keo Lane is a 47yo F with O2-dependent COPD, GLORIA, DD, seizure d/o, hypothyroidism trans ferred from OSH for workup of cor pulmonale 2/2 pulmonary hypertension. #Cor pulmonale/pulmonary hypertension- Based on right heart cath yesterday with normal PCWP and severely elevated PAP, it is clear that this patient's PAH is not 2/2 left sided heart failure, as anticipated from TTE results. PE was negative by CTA, and PFTs/imaging/oximetry not consistent with severe pulmonary disease or GLORIA to explain PAH. Appears, in fact, like i diopathic PAH (group 1), which carries a poor prognosis, especially given her poor function, right heart failure, and low activity tolerance at baseline. Patient demonstrated no respon se to NO, so she is not a candidate for therapy with calcium channel blockers. Would general ly consider anticoagulation, though patient's poorly controlled seizure disorder makes this therapy relatively unsafe for her at present. Other treatment considerations include prostac yclins, PDE-5 inhibitors, endothelin receptor antagonists. -Would recommend outpatient pulmonology follow-up to address therapy for pulmonary hyperten dariusz. -Continue supplemental O2 -Continue to encourage patient to use her CPAP Aye Carrillo MD Internal Medicine, PGY-1 Pager [phone] Late entry for 11 May: Pt interviewed & examined by me, reviewed w Dr. Whitaker whose note states our findings, imp r & recs in full. Artie Brown Tello Slaughter M D - 05/10/2013 8:38 AM PDTCardiology Attending I have seen and examined Ms. Lane and discussed the patient's management with the resident and/or fellow. I reviewed the housestaff note above and agree with the documented findings and plan of care. RHC confirms primary lesion is not left sided failure, given normal PCWP . Would continue pulmonary workup and management. Tello Humphries M.D. Director, Electrophysiology Treasury Agentdevelopment team lead [facility] [place] [address] eslee Archer howard H - 05/10/2013 8:38 AM PDT CARDIOLOGY PROGRESS NOTE Hospital Day:8 ID: Keo Lane is a 47yo F with h/o seizure d/o, DD, and newly diagnosed GLORIA admitted wit h hypoxia and clinical right heart failure with TTE indicative of pulmonary artery hypertens ion. Interval Hx: - pt underwent RHC this afternoon that demonstrated markedly elevated right sided pressure s with a normal PCWP. - per verbal report there was no decreased pressure with drugs administered during cath - final read pending Current medications: acetaminophen (aka TYLENOL) tablet 500 mg, 500 mg, Oral, Q6H PRN albuterol (aka PROVENTIL, VENTOLIN) 90 mcg/actuation inhaler 2 Puff, 2 Puff, Inhalation, QI D ascorbic acid tablet 500 mg, 500 mg, Oral, BID cholecalciferol (Vitamin D3) (aka VITAMIN D-3) tablet 2,000 Units, 2,000 Units, Oral, DAILY divalproex DR (aka DEPAKOTE) tablet 500 mg, 500 mg, Oral, TID docusate sodium (aka COLACE) capsule 50 mg, 50 mg, Oral, DAILY ferrous sulfate tablet 325 mg total salt, 325 mg total salt, Oral, BID folic acid (aka FOLVITE) tablet 1 mg, 1 mg, Oral, DAILY furosemide (aka LASIX) injection 40 mg, 40 mg, Intravenous, BID ( and ) gabapentin (aka NEURONTIN) tablet 600 mg, 600 [...] tablet 20 mg, 20 mg, Oral, DAILY risperiDONE (aka RISPERDAL) tablet 4 mg, 4 mg, Oral, HS simvastatin (aka ZOCOR) tablet 20 mg, 20 mg, Oral, QPM thiamine tablet 100 mg, 100 mg, Oral, DAILY Physical Exam: Last Vitals: BP 102/56 | Pulse 82 | Temp 36.9 C (98.4 F) | RR 18 | Ht 1.499 m (4' 11") | Wt 106.9 kg (235 lb 10.8 oz) | SpO2 92% | BMI 47.57 kg/(m^2) O2 Delivery Device: Nasal cannula (05/09/13 2300) 24 Hour Vital Min/Max: Systolic (24hrs), Av mmHg, Min:87 mmHg, Max:121 mmHg Diastolic (24hrs), Av mmHg, Min:46 mmHg, Max:64 mmHg Pulse Av.7 Min: 82 Max: 89 Temp Av.6 C (97.8 F) Min: 36.2 C (97.2 F) Max: 36.9 C (98.4 F) Resp Av.7 Min: 16 Max: 18 SpO2 Av.3 % Min: 92 % Max: 95 % Intake/Output Summary (Last 24 hours) at 05/10/13 0838 Last data filed at 05/10/13 0814 Gross per 24 hour Intake 1050 ml Output 0 ml Net 1050 ml Net -8L since admission General Appearance: Pleasant, alert, no apparent distress, cooperative HEENT: NCAT, MMM, white sclera Neck: JVP ~ 10cm Respiratory: CTAB without wheezes, rales, ronchi Cardiovascular: RRR without murmurs, rubs or gallops Gastrointestinal: Soft, NT, ND, NABS Extremities: Warm and well perfused, peripheral pulses equal and symmetric, 3+ pitting lauren a Lab: Chemistries: Last 72 Hours (or 3 results): Recent Labs 05/08/13 0646 05/09/13 0718 05/10/13 0736 NA 139 139 140 K 4.1 3.9 3.6 CL 102 99 100 BICARB 26 30 32 BUN 18 20 18 CR 0.82 0.82 0.79 GLU 94 98 104* CA 8.8 9.3 8.5* MG 1.8 1.9 1.9 CBC with diff last 72 hours (or 3 results) Recent Labs 05/08/13 0646 05/09/1371705/10/13 0736 WBC 7.9 8.2 6.8 HB 16.8* 16.5* 16.1* HCT 50.9* 50.6* 49.2* PLT 130* 131* 127* Liver Tests: Last 72 hours (or 3 results) Recent Labs 05/08/13 0646 05/09/1318 05/10/13 0736 AST 34 34 29 ALT 53 47 41 TBILI 0.3 0.5 0.4 AP 145* 133* 118* ALB 2.7* 3.0* 2.7* TP 6.7 7.1 6.8 Assessment: Keo Lane is a 47 y.o. female admitted for hypoxia and volume overload in the setting of pHTN, and GLORIA. Today's RHC demonstrated that the cause of the cor pulmonale is not left-malia ed failure, as PCWP was normal. The right-side did have marked elevation that did not show i mprovement with a CCB. At this point from a cardiac standpoint we recommend that she continu e with daily diuresis for symptom managment, and continue statin. Pt's right ventricular af terload will likely be improved by continued O2 and CPAP. Would defer to Pulm for any potent ial benefit of a pulmonary vasodilator. Patient was discussed with Dr. Kristel MD who agrees with above. Tammie Archer MD Internal Medicine, PGY2 Pager: [phone] Hung Mccrary M D - 05/10/2013 8:11 AM PDT INPATIENT PULMONARY FOLLOW UP NOTE AUTHOR: AYE CARRILLO MD ATTENDING PHYSICIAN: ZEB BROWN MD INTERVAL HX: -Cardiology consulted and preparing for RHC today -Seen by PT but not yet mobilizing. Requiring full assist with mobility. -Denies dyspnea. Mild non-productive cough. MEDICATIONS: Scheduled Medications Medication Dose Route Frequency Last Rate albuterol (aka PROVENTIL, VENTOLIN) 90 mcg/actuation inhaler [...] 40 mg 40 mg Intravenous BID () 40 mg ( 1810) gabapentin (aka NEURONTIN) tablet 600 mg 600 [...] tablet 100 mg 100 mg Oral DAILY PRN Medications Medication Dose Route Frequency Last Rate acetaminophen (aka TYLENOL) tablet 500 mg 500 mg Oral Q6H PRN PHYSICAL EXAM: Last Vitals: BP 102/56 | Pulse 82 | Temp 36.9 C (98.4 F) | RR 18 | Ht 1.499 m (4' 11") | Wt 105.7 kg (233 lb 0.4 oz) | SpO2 92% | BMI 47.04 kg/(m^2) 24 Hour Vital Min/Max: Systolic (24hrs), Av mmHg, Min:87 mmHg, Max:121 mmHg Diastolic (24hrs), Av mmHg, Min:46 mmHg, Max:64 mmHg Pulse Min: 82 Max: 89 Temp Min: 36.2 C (97.2 F) Max: 36.9 C (98.4 F) Resp Min: 16 Max: 18 SpO2 Min: 92 % Max: 95 % ON 2L NC Intake/Output Summary (Last 24 hours) at 05/10/13811 Last data filed at 05/09/13 1830 Gross per 24 hour Intake 920 ml Output 0 ml Net 920 ml Output not recorded. Patient lacks urinary continence, consistent with baseline. GEN: Obese female laying in bed. Lethargic and minimally interactive. HEENT: PERRLA. Oropharynx clear. RESP: CTAB without wheezes or rhonchi. 91% on 2L NC CV: RRR. No m/r/g. No apparent JVD. ABD: Obese, non-distended. Non-tender. Quiet bs. EXT: Pitting edema to just below knee. No cyanosis or clubbing. LABS: CBC with diff last 72 hours (or [...] 94 98 104* CA 8.8 9.3 8.5* MG 1.8 1.9 1.9 IMAGING: No new imaging studies. ASSESSMENT/RECOMMENDATIONS: Keo Lane is a 47yo F with history of DD, seizure d/o, hypothyroidism, O2-dependent COPD , and recent GLORIA transferred from OSH with right heart failure 2/2 pulmonary hypertension. #pHTN and right heart failure- Significant pulmonary hypertension resulting in cor pulmonal e. Does not appear to be caused by underlying COPD or GLORIA given minimal obstruction on PFTs and lack of significant COPD on CT. Overnight oximetry off CPAP not consistent with high deg ree of GLORIA. Suspect alternate cause of pHTN, though TTE without evidence of L heart failure. -Continue with right heart catheterization, scheduled today -Continue diuresis to restore euvolemia -Continue PT and mobilization as much as tolerated #GLORIA- reported "severe adult GLORIA" by outside facility based on PSG on 03/13/13. However, trena coley has been refusing CPAP during hosptialization, and overnight oximetry performed while o ff CPAP showed minimal and minor sleep desaturations. -Would of course recommend patient use her CPAP at titrated settings (bilevel pressures 18c m H20 IPAP/14cm H20 EPAP), but not dangerous to be without it based on oximetry testing. Other issues per primary team. Will continue to follow. Aye Carrillo MD Internal Medicine, PGY-1 pager [phone] Pt interviewed & examined by me, reviewed w Dr. Carrillo whose note states our findings, imp r & recs in full. Artie Brown oleKate hector - 05/09 12:42 PM PDT TOBACCO CESSATION CONSULT 05/09/[address] [id number] Patient Status at Consult: Pt was very pleasant, but somewhat groggy throughout the consult . However, Pt was alert enough to answer all questions asked and participate in the discuss ion. Tobacco History & Quitting Profile: 1. Cigarettes per day: Pt is a 1 PPD smoker for about 15 years, however, over the past few weeks she has cut back to 1/2PPD. 2. Assessment: Pt is considered to have a medium-high nicotine dependence. 3. Current Nicotine Cravings: None reported at this time (with the 21mg NRT patch on) 4. Quitting History: Patient has quit before for 2 weeks when she was hospitalized a few mo nths ago. 5. Readiness and Motivation to Quit: Pt is very motivated to try to quit smoking. 6. Education/Discussion: Provided patient with tobacco cessation literature and discussed n icotine receptors and their role in nicotine withdrawal symptoms, risks of carbon monoxide, and encouraged total abstinence from smoking. Discussed with Pt the benefits of quitting tobacco now and the negative impact tobacco has on wound healing/illness recovery and on health status in general. Discussed tobacco quit pl an options. Educated Pt on cessation methods, including NRT patches and lozenges that can be used to help with cessation. Encouraged patient to call the [place] [facility] Quit Line [phone]- QUIT-NOW for counseling. 7. Recommendations: For comfort and as a first step toward smoking cessation, I recommend t he patient continue to use the 21mg NRT patch while in the hospital as she reports it is suf ficiently controlling her cravings/withdrawal. Pt declines being sent home with prescription for NRT patches at discharge stating she already has her own patches at home that she is pl anning to use. Recommend the NRT patches in the "step down" method of: 21mg 1 x daily for 4- 6 weeks; 14mg 1 x daily for 2 weeks; 7mg 1 x daily for 2 weeks; this course is 8-10 weeks in duration. 8. Planned Follow-up: [facility] will follow-up with patient via telepho ne after discharge for cessation support. Assessment 305.1 Tobacco Use Disorder No past medical history on file. Allergies Allergen Reactions Erythromycin Flagyl (Metronidazole) Penicillins Sulfa (Sulfonamide Antibiotics) Kate Alba MA, [facility] Tobacco Laboratory Associate [facility] [phone] [email or web address] Hung Mccrary MD - 05/09 11:52 AM PDT INPATIENT PULMONARY FOLLOW UP NOTE AUTHOR: AYE CARRILLO MD ATTENDING PHYSICIAN: ZEB BROWN MD INTERVAL HX: -Increased lethargy and weakness. Has been ambulating less and was provided bedpan 2/2 weak ness with mobilizing to bathroom. Sleeps most of day. More wakeful in afternoons. -Decreased O2 to 1L nc (2L baseline), though has significant MORGAN with increased requirement to 4-5L nc -Refuses CPAP in evenings. Reports no difficulty with sleep, apnea, or SOB. -Cough improving. Non-productive. MEDICATIONS: Current Inpatient Medications Medication Dose Route Frequency [...] tablet 100 mg 100 mg Oral DAILY PHYSICAL EXAM: Last Vitals: BP 114/61 | Pulse 89 | Temp 36.5 C (97.7 F) | RR 16 | Ht 1.499 m (4' 11") | Wt 105.7 kg (233 lb 0.4 oz) | SpO2 93% | BMI 47.04 kg/(m^2) 24 Hour Vital Min/Max: Systolic (24hrs), Av mmHg, Min:104 mmHg, Max:121 mmHg Diastolic (24hrs), Av mmHg, Min:61 mmHg, Max:79 mmHg Pulse Min: 80 Max: 90 Temp Min: 36.5 C (97.7 F) Max: 37.6 C (99.7 F) Resp Min: 16 Max: 16 SpO2 Min: 93 % Max: 95 % GEN: Obese female, resting but cooperative. Sits for exam. NAD. HEENT: PERRLA. Oropharynx clear. RESP: CTAB. No wheezes or rhonchi. Comfortable on 1L at rest. Occasional non-productive cou gh. CV: RRR. Prominent S2. No m/r/g. ABD: Obese, soft, nd, nt. Normal bs. NEURO: Lethargic but more wakeful. A&O*3. Motor and sensory function grossly intact. EXT: 2+ pitting LE edema to knees. No cyanosis or clubbing. CBC with diff last 72 hours (or 3 results) Recent Labs 05/07/13 0752 05/08/13 0646 05/09/13 0718 WBC 6.9 7.9 8.2 HB 16.0 16.8* 16.5* HCT 49.0* 50.9* 50.6* PLT 136* 130* 131* Chemistries: Last 72 Hours (or 3 results): Recent Labs 05/07/13 0752 05/08/13 0646 05/09/13 0718 NA 142 139 139 K 4.4 4.1 3.9 CL 104 102 99 BICARB 28 26 30 BUN 17 18 20 CR 0.80 0.82 0.82 GLU 91 94 98 CA 8.7 8.8 9.3 MG 1.9 1.8 1.9 ASSESSMENT/RECOMMENDATIONS: Keo Lane is a 47yo F with h/o seizure d/o, DD, and newly diagnosed GLORIA admitted with hy poxia and clinical right heart failure with TTE indicative of pulmonary artery hypertension. #PAH- Feel unlikely to be pulmonary in etiology given lack of significant underlying emphys john or GLORIA. -recommend RHC for further investigation of PAH -continue PT and out of bed as much as possible -continue supplemental O2 as required and CPAP as tolerated Aye Carrillo MD Internal Medicine, PGY-1 [id number] Late entry for 09 May: Pt interviewed & examined by me, reviewed w Dr. Carrillo whose note states our findings, imp r & recs in full. Artie Brown Tello Slaughter M D - 05/09/2013 11:39 AM PDTCardiology Attending I have seen and examined Ms. Lane and discussed the patient's management with the resident and/or fellow. I reviewed the housestaff note above and agree with the documented findings and plan of care. Given the confusing hemodynamic picture and very high right sided pressu res, would agree with proceeding to RHC to further characterize her physiology. Tello Humphries M.D. Director, Electrophysiology Treasury Agentdevelopment team lead [facility] [place] [id number] eslee Archer H - 05/09/2013 11:39 AM PDT INITIAL CARDIOLOGY CONSULT Author: TAMMIE ARCHER PCP: Gela Trimble NP Consult: should patient undergo RHC for R sided dysfunction and pHTN in the absence of LH d ysfunction? HPI: (from notes and caregiver Tila who is in room with patient) Keo Lane is a 47 y.o. female with impressive tobacco use history, obesity,GLORIA and COPD on home O2 who presented on 05/02/[address] [facility] in [place] with volume overload. Caregiver tells me that the patient was in generally doing well until late March 19 when she had a seizure and was admitted to the hospital. At that time was found to be hyp oxic into the 80s and was sent home with home 02. In March of this year patient was diagnose d with pHTN based on an TTE with RVSP of 75mmHg. Pt was seen by a Core Sucker in [place] who recommended Sleep Study and PFTs as well potential RHC if those were unrevealing. Pt did undergo Sleep Study on April 08, 2013 and was started on a CPAP at that time. Per the caregiv er the patient then became more sedentary 2/2 to SOB, and had significant LE edema and weigh t gain. Since her admission the patient has been diuresing well with 40mg BID of furosemide, and her oxygen requirements have decreased. Pulm has also been involved with the patient's care and has felt that GLORIA not significant e nough to cause marked pHTN. Furthermore, pt does not actually have evidence of obstructive d isease on PFTs that have been done since patients arrival. ROS: 10 point ROS otherwise negative except as noted in HPI PMHx: 1. GLORIA with pHTN 2. Morbid obesity 3. Bipolar/PTSD 4. Developmental Delay/Mental Retardation 5. Osteoarthritis 6. Remote H/o polysubstance abuse including etoh, meth, and IVDU 7. GERD 8. Vitamin D deficiency 9. Current smoking 10. Seizure disorder 11. HLD 12. Hypothyroidism PSHx: No past surgical history on file. FMHx: Denies family history of heart disease HABITS: T: Smoke age 2-3 ppd since age 10. Now 3-4 cigs day, cut back E: Etoh: Remote but heavy D: H/o IVDU 15 years inject meth and cocaine nothing since SH: Son lives in [place] who is 30 and estranged. Friend Desmond De Souza . Prior to Admission Medications: Prescriptions prior to admission Medication Sig Dispense Refill albuterol 90 mcg/actuation Inhalation HFA Aerosol Inhaler Inhale every four hours as ne eded. albuterol-ipratropium 18-103 mcg/actuation Inhalation Aerosol (Aero) Inhale 2 Puffs fou r times daily as needed. ascorbic acid 500 mg Oral tablet Take 500 mg by mouth two times daily. buPROPion SR 200 mg Oral tablet extended release Take 200 mg by mouth two times daily. cetirizine 10 mg Oral tablet Take 10 mg by mouth once daily. cholecalciferol, Vitamin D3, 1,000 unit Oral tablet Take 2,000 Units by mouth once celia y. divalproex DR 500 mg Oral tablet,delayed release (DR/EC) Take 500 mg by mouth once celia y. docusate sodium 50 mg Oral capsule Take 50 mg by mouth once daily. ferrous sulfate 325 mg (65 mg iron) Oral tablet Take 325 mg by mouth two times daily. gabapentin 600 mg Oral tablet Take 600 mg by mouth three times daily. levothyroxine 137 mcg Oral tablet Take 137 mcg by mouth once daily. meloxicam 15 mg Oral tablet Take 15 mg by mouth once daily. omeprazole 20 mg Oral capsule,delayed release(DR/EC) Take 20 mg by mouth once daily in the morning. PARoxetine 20 mg Oral tablet Take 20 mg by mouth once daily. phenytoin ER 100 mg Oral capsule Take 100 mg by mouth three times daily. risperiDONE 4 mg Oral tablet Take 4 mg by mouth once daily at bedtime. simvastatin 20 mg Oral tablet Take 20 mg by mouth once daily in the evening. traMADol 50 mg Oral tablet Take 50 mg by mouth every six hours as needed. Alleriges: Allergies Allergen Reactions Erythromycin Flagyl (Metronidazole) Penicillins Sulfa (Sulfonamide Antibiotics) Physical Exam: BP 104/64 | Pulse 80 | Temp 37.2 C (99 F) | RR 16 | Ht 1.499 m (4' 11") | Wt 105.7 kg ( 233 lb 0.4 oz) | SpO2 95% | BMI 47.04 kg/(m^2), wt 235 on admission I/O last 24 hours negati ve 300mls General Appearance: Pleasant, alert, NAD, cooperative HEENT: PERRLA, EOMI, NCAT, normal conjunctiva, anicteric sclera Neck: supple, no lymphadenopathy, no thyromegaly, JVP likely about 8-10cm Respiratory: CTAB without wheezes, rales, ronchi Cardiovascular: RRR without murmurs, rubs or gallops, normal S1 and S2 Gastrointestinal: Soft, NT, ND, NABS Extremities: Warm and well perfused, peripheral pulses equal and symmetric,3+ edema Skin: No rashes Neurologic: Alert and Oriented x 3, Data: Labs: CBC with diff last 72 hours (or 3 results) Recent Labs 05/07/1375105/08/13 0646 05/09/13 0718 WBC 6.9 7.9 8.2 HB 16.0 16.8* 16.5* HCT 49.0* 50.9* 50.6* PLT 136* 130* 131* Chemistries: Last 72 Hours (or 3 results): Recent Labs 05/07/1375105/08/13 0646 05/09/13 0718 NA 142 139 139 K 4.4 4.1 3.9 CL 104 102 99 BICARB 28 26 30 BUN 17 18 20 CR 0.80 0.82 0.82 GLU 91 94 98 CA 8.7 8.8 9.3 MG 1.9 1.8 1.9 TSH 3.2 LFTs WNL, some alk phos elevation Imaging: TTE 05/04/2013 1. The left ventricular cavity size is decreased. 2. The LV systolic function is normal. 3. Visually estimated left ventricular ejection fraction is 60 - 65%. 4. Severely enlarged right ventricle. Mildly reduced systolic function. 5. Severely elevated right ventricular systolic pressure. 6. Severely dilated right atrium. 7. Study strongly suggestive of pulmonary arterial hypertension. 8. Small pericardial effusion. EKG NSR, rate of 71, RA deviation, OR of 200ms and QTC of 480ms. No ST elevations or depres sions, no TWI. Q waves in v1, v2 Sleep study with apnea hypoxia index of 9.9 events/hour PFTs: FEV1- 59% FVC- 70% FEV1/FVC- 68% Overnight Oximetry: 18 desaturations, spO2 83=97%. 99% of time =>90%. OSH CTA with no PE and no changes from emphysema (per report) Assessment: Keo Lane is a 47 y.o. female with recently diagnosed RH dysfunction and elevated RVSP s uggestive of pHTN. Pt does have GLORIA, but no significant obstructive dz on PFTs. While this m ay contribute to RH dysfunction it likely does not completely explain the degree seen on rec ent ECHO. At this point we feel it prudent to proceed to a RHC to further characterize her pHTN and left-sided function. Plan: - NPO at midnight for likely RHC tomorrow - explained procedure to patient who agreed with plans - would send serum studies to evaluate causes for PAH, such as HIV, as well as screening fo r autoimmune with CHAMP and ANCA - continue diuresis as you are doing, as well as treating GLORIA Thank you for this consultation. Will follow along. The patient was staffed with Dr. Humphries who agrees with above Tammie Archer MD Internal Medicine, R2 pager [phone] Demetra Hung, M D - 05/08/2013 6:00 PM PDT INPATIENT PULMONARY CONSULT NOTE Hospital Day: 6 Author: AYE CARRILLO MD Attending: ZEB BROWN MD Interval Hx -PFTs performed. Patient with some difficulty in understanding and participation but able t o complete studies. -Overnight oximetry obtained -No acute events. -O2 weaned to 1L NC -Endorses non-productive cough. Denies dyspnea or CP. Physical Exam: Last Vitals: BP 109/56 | Pulse 78 | Temp 36.2 C (97.2 F) | RR 16 | Ht 1.499 m (4' 11") | Wt 105.7 kg (233 lb 0.4 oz) | SpO2 96% | BMI 47.04 kg/(m^2) 24 Hour Vital Min/Max: Systolic (24hrs), Av mmHg, Min:100 mmHg, Max:109 mmHg Diastolic (24hrs), Av mmHg, Min:56 mmHg, Max:60 mmHg Pulse Min: 77 Max: 86 Temp Min: 36.2 C (97.2 F) Max: 36.9 C (98.4 F) Resp Min: 16 Max: 20 SpO2 Min: 91 % Max: 96 % on 1-2L nc Gen: Obese woman sitting up for breakfast. Alert and responsive. HEENT: PERRLA. Oropharynx clear. Resp: CTAB with full air movement bilaterally. No wheezes or rhonchi. CV: RRR. Prominent S2 but no m/r/g. 2+ LE edema to knee. GI: Obese. Soft, nd, nt. Ext: LE edema. No cyanosis or clubbing. Labs CBC with diff last 72 hours (or 3 results) Recent Labs 05/06/13 0742 05/07/13 0752 05/08/13 0646 WBC 5.0 6.9 7.9 HB 15.3 16.0 16.8* HCT 47.4* 49.0* 50.9* PLT 133* 136* 130* Chemistries: Last 72 Hours (or 3 results): Recent Labs 05/06/13 0742 05/07/13 0752 05/08/13 0646 NA 141 142 139 K 3.9 4.4 4.1 CL 103 104 102 BICARB 30 28 26 BUN 16 17 18 CR 0.89 0.80 0.82 GLU 90 91 94 CA 8.8 8.7 8.8 MG 1.9 1.9 1.8 PFTs: FEV1- 59% FVC- 70% FEV1/FVC- 68% Overnight Oximetry: 18 desaturations, spO2 83=97%. 99% of time =>90%. Assessment/Recommendations: Keo Lane is a 47yo F with h/o seizure d/o, DD, and newly diagnosed GLORIA admitted with hy poxia and clinical right heart failure with TTE indicative of pulmonary artery hypertension. #Pulmonary artery hypertension- Unclear etiology of PAH. TTE not suggestive of left heart f ailure (Group 2 PAH) and no PE on CTA (Group 4 PAH). Evaluation of patient's underlying lung disease seems unlikely to explain her pulmonary hypertension. Her PFTs do indicate a patter n of mild obstruction, though the degree is not impressive and seems unlikely to be the sour ce of her pulmonary hypertension. Similarly, her CTA does not show any extensive degree of e mphysema. Her overnight oximetry pattern does not seem consistent with GLORIA as the patient kasper d very few and infrequent overnight desaturations, and never below the mid-80s. Given that u nderlying lung disease is not likely to be the cause of her pulmonary hypertension, would re commend a right heart catheterization for further evaluation. Other issues per primary team. Late entry for 08 May: Pt interviewed & examined by me, reviewed w Dr. Carrillo whose note states our findings, imp r & recs in full. Imperfect PFTs and overnight oximetry fail to provide a clear pulmonary explanation for her elevated pulmonary pressures on echo. Would confer with cardiology concerning their though ts about utility of rt. heart cath. S. Brown Kate Ferreira - 05/08 11:54 AM PDTTOBACCO CESSATION CONSULT 05/08/[address] [id number] Goal: Tobacco Cessation Consult Outcome: Goal unable to be met to-date Attempted to see patient in response to doctor's/nurse's request for patient to receive tob acco cessation counseling, education regarding quitting, and to provide pt with help and ser vices for quitting smoking. Patient was fast asleep and not waking to her name being called. Will try again later today or tomorrow to speak to patient. Kate Alba MA, [facility] Tobacco Laboratory Associate [facility] [phone] [email or web address] Hung Mccrary MD - 05/07 9:42 AM PDT Inpatient Pulmonary Follow-Up Note Hospital Day: 4 Author: AYE CARRILLO MD Attending: Zeb Brown MD Interval Hx: -Continued diuresis with patient returning to previous O2 requirement of 2L nc. Increased O 2 requirement with movement, up to 5L today. -Continues to be very somnolent, sleeping most of day Physical Exam: Last Vitals: BP 117/61 | Pulse 76 | Temp 36.7 C (98.1 F) | RR 16 | Ht 1.499 m (4' 11") | Wt 105.7 kg (233 lb 0.4 oz) | SpO2 93% | BMI 47.04 kg/(m^2) 24 Hour Vital Min/Max: Systolic (24hrs), Av mmHg, Min:96 mmHg, Max:124 mmHg Diastolic (24hrs), Av mmHg, Min:47 mmHg, Max:61 mmHg Pulse Min: 72 Max: 77 Temp Min: 36.3 C (97.3 F) Max: 36.7 C (98.1 F) Resp Min: 16 Max: 17 SpO2 Min: 90 % Max: 100 % on 2-5L nc Intake/Output Summary (Last 24 hours) at 05/07/13 0946 Last data filed at 05/07/13 0552 Gross per 24 hour Intake 995 ml Output 3225 ml Net -2230 ml Gen: Obese female sleeping in bed. Arouses only momentarily. NAD. HEENT: PERRLA. Oropharynx clear. Neck: JVP apparent above clavicle Resp: Mild crackles at left base. Good air movement. No wheezing. CV: RRR. Physiologic S2 splitting. No m/r/g. GI: Obese, soft, non-tender. Normal bs. Ext: 2+ pitting edema to knee bilaterally. No UE edeam.. Neuro: Lethargic. Opens eyes on command. Minimally interactive. Psych: Unable to assess given lethargy. Current facility-administered medications:acetaminophen (aka TYLENOL) tablet 500 mg, 500 mg , Oral, Q6H PRN, Judi Houston MD, 500 mg at 05/05/13 2130 albuterol (aka PROVENTIL, VENTOLIN) 90 mcg/actuation inhaler 2 Puff, 2 Puff, Inhalation, Q4 H PRN, Agus Hu MD albuterol-ipratropium (aka COMBIVENT) inhaler 2 Puff, 2 Puff, Inhalation, QID, Agus massey MD, 2 Puff at 05/07/13 0807 ascorbic acid tablet 500 mg, 500 mg, Oral, BID, Judi Houston MD, 500 mg at 05/07/13 075 6 cholecalciferol (Vitamin D3) (aka VITAMIN D-3) tablet 2,000 Units, 2,000 Units, Oral, DAILY , Judi Houston MD, 2,000 Units at 05/07/13755 divalproex ER (aka DEPAKOTE ER) tablet 1,500 mg, 1,500 mg, Oral, DAILY, Jay Jay Grimaldo MD , 1,500 mg at 05/07/13755 docusate sodium (aka COLACE) capsule 50 mg, 50 mg, Oral, DAILY, Judi Houston MD, 50 mg at 05/07/13755 ferrous sulfate tablet 325 mg total salt, 325 mg total salt, Oral, BID, Judi Houston MD , 325 mg total salt at 05/07/13755 folic acid (aka FOLVITE) tablet 1 mg, 1 mg, Oral, DAILY, Jay Jay Grimaldo MD, 1 mg at 05/07 furosemide (aka LASIX) injection 40 mg, 40 mg, Intravenous, BID ( and ), Agus moses MD gabapentin (aka NEURONTIN) tablet 600 mg, 600 mg, Oral, TID, Judi Houston MD, 600 mg at 05/07/13755 heparin injection 5,000 Units, 5,000 Units, Subcutaneous, Q8H, Judi Houston MD, 5,000 U nits at 05/07/13756 levothyroxine tablet 137 mcg, 137 mcg, Oral, DAILY, Judi Houston MD, 137 mcg at 3 07 loratadine (aka CLARITIN) tablet 10 mg, 10 mg, Oral, DAILY, Judi Houston MD, 10 mg at 0 05/07/13755 nicotine (aka NICOTROL) 21 mg/24 hr patch 1 Patch, 1 Patch, Transdermal, DAILY, Judi Houston MD, 1 Patch at 05/07/13 08 omeprazole (aka PRILOSEC) capsule 20 mg, 20 mg, Oral, QAM, Judi Houston MD, 20 mg at 755 PARoxetine (aka PAXIL) tablet 20 mg, 20 mg, Oral, DAILY, Judi Houston MD, 20 mg at 0706/12 0756 pneumococcal (23-valent) polysaccharide vaccine (aka PNEUMOVAX) injection 0.5 mL, 0.5 mL, I ntramuscular, ONE TIME IN THE MORNING, Too Lopez MD risperiDONE (aka RISPERDAL) tablet 4 mg, 4 mg, Oral, HS, Judi Houston MD, 4 mg at 05/06 2222 simvastatin (aka ZOCOR) tablet 20 mg, 20 mg, Oral, QPM, Judi Houston MD, 20 mg at 05/06 2043 thiamine tablet 100 mg, 100 mg, Oral, DAILY, Jay Jay Grimaldo MD, 100 mg at 05/07/13 0756 CBC wnl, slight hemoconcentration. Mild thrombocytopenia consistent throughout admission. BMP wnl ALT/AST wnl. Elevated alk phos, improving. Low protein and albumin. Elevated NH4, improving . Assessment/Recommendations: Keo Lane is a 47yo F with hx of seizure disorder, DD, GLORIA, and significant tobacco abus e admitted with hypoxia in the setting of right heart failure 2/2 suspected pulmonary artery hypertension. #Hypoxia- patient developed O2 requirement over past 6 weeks, worsened at admission. Likley 2/2 pulmonary artery hypertension based on TTE. Given smoking history and recent diagnosis of GLORIA, concern Group 3 PAH, though further evaluation warranted with PFTs and possible righ t heart cath. -Complete PFTs. Consider right heart cath if no sign of chronic lung disease. -Follow up outside sleep study -Continue O2 therapy as required -Ensure patient is on CPAP when sleeping. #GLORIA- recent diagnosis based on outside sleep study. Patient uses CPAP at night. -Acquire outside sleep study record for review -Place patient on continuous overnight oximetry to monitor for desaturations -Continue CPAP with supplemental O2 Other issues per primary team. Appreciate consult and will continue to follow. Late entry for 07 May: Pt interviewed & examined by me, reviewed w Dr. Carrillo whose note states our findings, imp r & recs in full. Pt admitted 02 May with peripheral edema, hypoxia, hypotension, and pulmonary htn on echo p erformed elsewhere. She has a hx of smoking, and has GLORIA according to study done elsehwere. She needs PFTs to evaluate extent to which pulmonary htn results from poor pulmonary funct ion, although tests may be difficult b/o patient's somnolence. Her edema and hypoxia have i mproved with diuresis. Artie Brown Violeta Kitchen PharmD - 0 05/07/2013 8:55 AM PDTPharmacy Services Pneumococcal Screening Note Keo Lane has unknown pneumococcal status. This patient qualifies for vaccination this admission due to the following criteria: Cigarette smoker and Chronic pulmonary disease (e.g . chronic obstructive pulmonary disease, emphysema, asthma) with no known or unknown history of prior receipt of pneumococcal 23-valent polysaccharide vaccine. Per P&T approved protocol, a pneumococcal vaccination has been ordered for tomorrow. Christiano montes clinical pharmacist (#[phone]) or call central inpatient pharmacy ([phone]) with [employer]. Thank you, Violeta Saxena PharmD, [facility] Pager [phone] signed by Violeta Saxena PharmD at 05/07/2013 8:59 AM Javad Lopez MD - 05/06/2013 10:02 AM PDTI performed a history and physical examination of the patie nt and discussed her management with the resident. I reviewed the resident s note and agr ee with the documented findings and plan of care. LISA RIVERS MD [address] [facility] Mailcode: [address] [place] [address] [phone] [facility] DEPARTMENT: [facility]- [id number] Place of Service: [facility] Date of Service: 05/29/2013 CSN: [id number] Modifiers:GC Resident Involved: yes Suggested CPT: 81236 Subsequent Visit Exp Prob Foc/Mod Complexity 25 min Leobardo Cooper Md - 05/06/2013 10:02 AM PDT INPATIENT PULMONARY FOLLOW-UP NOTE Hospital Day:4 Author; LEOBARDO ROCHA MD Attending Physician: Lisa Rivers MD Interval Hx: - Supplemental O2 weaned to 2L NC, sats 91-94% - No acute overnight events - Pt endorses non-productive cough, no SOB. Physical Exam: Last Vitals: BP 119/53 | Pulse 63 | Temp 36.4 C (97.5 F) | RR 16 | Ht 1.499 m (4' 11") | Wt 105.7 kg (233 lb 0.4 oz) | SpO2 93% | BMI 47.04 kg/(m^2) O2 Delivery Device: Nasal cannula (05/06/13 0944) 24 Hour Vital Min/Max: Systolic (24hrs), Av mmHg, Min:111 mmHg, Max:125 mmHgDiastolic (24hrs), Av mmHg, M in:53 mmHg, Max:68 mmHgPulse Min: 63 Max: 78 Temp Min: 36 C (96.8 F) Max: 36.6 C (97.9 F) Resp Min: 16 Max: 18 SpO2 Min: 90 % Max: 96 % Intake/Output Summary (Last 24 hours) at 05/06/13 1002 Last data filed at 05/06/13 0900 Gross per 24 hour Intake 1336 ml Output 3500 ml Net -2164 ml General Appearance: Obese female resting calmly in bed, more alert and interactive today. HEENT: Clear oropharynx, PERRL, EOMI Neck: Patient sitting in chair. Internal jugular not visualized but patient not asked to r ecline. Respiratory: Clear bilaterally in anterior lung vasquez Cardiovascular: RRR, loud S2, no murmurs or gallops Gastrointestinal: Soft, non-tender Lymphatic: 2+ pitting edema to above knee Prescriptions prior to admission Medication Sig Dispense Refill albuterol 90 mcg/actuation Inhalation HFA Aerosol Inhaler Inhale every four hours as ne eded. albuterol-ipratropium 18-103 mcg/actuation Inhalation Aerosol (Aero) Inhale 2 Puffs fou r times daily as needed. ascorbic acid 500 mg Oral tablet Take 500 mg by mouth two times daily. buPROPion SR 200 mg Oral tablet extended release Take 200 mg by mouth two times daily. cetirizine 10 mg Oral tablet Take 10 mg by mouth once daily. cholecalciferol, Vitamin D3, 1,000 unit Oral tablet Take 2,000 Units by mouth once celia y. divalproex DR 500 mg Oral tablet,delayed release (DR/EC) Take 500 mg by mouth once celia y. docusate sodium 50 mg Oral capsule Take 50 mg by mouth once daily. ferrous sulfate 325 mg (65 mg iron) Oral tablet Take 325 mg by mouth two times daily. gabapentin 600 mg Oral tablet Take 600 mg by mouth three times daily. levothyroxine 137 mcg Oral tablet Take 137 mcg by mouth once daily. meloxicam 15 mg Oral tablet Take 15 mg by mouth once daily. omeprazole 20 mg Oral capsule,delayed release(DR/EC) Take 20 mg by mouth once daily in the morning. PARoxetine 20 mg Oral tablet Take 20 mg by mouth once daily. phenytoin ER 100 mg Oral capsule Take 100 mg by mouth three times daily. risperiDONE 4 mg Oral tablet Take 4 mg by mouth once daily at bedtime. simvastatin 20 mg Oral tablet Take 20 mg by mouth once daily in the evening. traMADol 50 mg Oral tablet Take 50 mg by mouth every six hours as needed. Chemistries: Last 72 Hours (or 3 results): Recent Labs 05/03/13 1832 05/04/13 0655 05/04/13 1715 05/05/13 0734 05/05/13 1008 05/06/13 0742 NA 141 144 -- 143 -- 141 K 4.0 3.8 -- 4.0 -- 3.9 CL 104 106 -- 106 -- 103 BICARB 27 28 -- 29 -- 30 BUN 25* 20 -- 15 -- 16 CR 0.85 0.78 -- 0.71 -- 0.89 GLU 131* 84 120* 87 -- 90 CA 8.0* 8.1* -- 8.6 -- 8.8 MG 1.9 -- -- -- 2.0 1.9 CBC with diff last 72 hours (or 3 results) Recent Labs 05/04/13 0655 05/05/13 0734 05/06/13 0742 WBC 5.9 4.8 5.0 HB 14.2 14.6 15.3 HCT 43.1 45.1 47.4* PLT 129* 132* 133* Assessment and Recommendations: Ms. Lane is a 47 year old woman admitted with hypoxia and clinical evidence of right heart failure as evidenced by progressive LE edema and cardiomegaly on CXR in the setting of rece ntly diagnosed GLORIA and >70 pack year smoking history. Improved oxygen requirements since adm ission, now on 2.5L. Unknown baseline O2 requirement. Will have better understanding of ex tent of lung disease after PFTs. Will also help with determining utility of right heart cat h Agree with review of outside sleep study records. - PFTs next week - Cont O2 therapy Other issues per primary team. Appreciate consult and will continue to follow. This patient was discussed with my attending pysician, Dr. Lisa Rivers, who agrees with my assessment and plan unless otherwise noted. Leobardo Rocha MD pgy2 Internal Medicine, [id number] Lisa Lopez MD - 03/2013 9:48 AM PDTI performed a history and physical examination of the patient and discus sed her management with the resident. I reviewed the resident s note and agree with the d ocumented findings and plan of care. LISA RIVERS MD [address] [facility] Mailcode: [address] [place] [id number] [facility] DEPARTMENT: [facility] [id number] Place of Service: [facility] Date of Service: 05/29/2013 CSN: [id number] Modifiers:GC Resident Involved: yes Suggested CPT: 39169 Subsequent Visit Detailed/High complexity 35 min Leobardo Cooper Md - 05/05/2013 9:48 AM PDT INPATIENT PULMONARY FOLLOW-UP NOTE Hospital Day:3 Author; LEOBARDO ROCHA MD Attending Physician: Lisa Rivers MD Interval Hx: - Seizure episode yesterday evening - TTE consistent with pulmonary hypertension. RVSP 111mmhg, RA pressure, 15mmhg, LV cavity decreased in size, right atrium severely dilated, normal LV function - CTA report from OSH without evidence of PE - EEG with mild diffuse slowing Physical Exam: Last Vitals: BP 127/64 | Pulse 65 | Temp 36.7 C (98.1 F) | RR 20 | Ht 1.499 m (4' 11") | Wt 106.9 kg (235 lb 10.8 oz) | SpO2 95% | BMI 47.57 kg/(m^2) O2 Delivery Device: Nasal cannula (05/05/13 0930) 24 Hour Vital Min/Max: Systolic (24hrs), Av mmHg, Min:91 mmHg, Max:137 mmHgDiastolic (24hrs), Av mmHg, Mi n:33 mmHg, Max:78 mmHgPulse Min: 63 Max: 70 Temp Min: 36.1 C (97 F) Max: 36.7 C (98.1 F) Resp Min: 18 Max: 22 SpO2 Min: 94 % Max: 97 % Intake/Output Summary (Last 24 hours) at 05/05/13 0949 Last data filed at 05/04/13 2100 Gross per 24 hour Intake 1065 ml Output 300 ml Net 765 ml General Appearance: Obese female resting calmly in bed, lethargic HEENT: Clear oropharynx, PERRL, EOMI Neck: JVP estimated at 12cm, obese neck. Respiratory: Clear bilaterally in anterior lung vasquez Cardiovascular: RRR, loud S2, no murmurs or gallops Gastrointestinal: Soft, non-tender Lymphatic: 2+ pitting edema to above knee Neurologic: The patient is lethargic but opens eyes to verbal stimulation. Quickly falls b ack asleep after giving 1-2 word answer. Prescriptions prior to admission Medication Sig Dispense Refill albuterol 90 mcg/actuation Inhalation HFA Aerosol Inhaler Inhale every four hours as ne eded. albuterol-ipratropium 18-103 mcg/actuation Inhalation Aerosol (Aero) Inhale 2 Puffs fou r times daily as needed. ascorbic acid 500 mg Oral tablet Take 500 mg by mouth two times daily. buPROPion SR 200 mg Oral tablet extended release Take 200 mg by mouth two times daily. cetirizine 10 mg Oral tablet Take 10 mg by mouth once daily. cholecalciferol, Vitamin D3, 1,000 unit Oral tablet Take 2,000 Units by mouth once celia y. divalproex DR 500 mg Oral tablet,delayed release (DR/EC) Take 500 mg by mouth once celia y. docusate sodium 50 mg Oral capsule Take 50 mg by mouth once daily. ferrous sulfate 325 mg (65 mg iron) Oral tablet Take 325 mg by mouth two times daily. gabapentin 600 mg Oral tablet Take 600 mg by mouth three times daily. levothyroxine 137 mcg Oral tablet Take 137 mcg by mouth once daily. meloxicam 15 mg Oral tablet Take 15 mg by mouth once daily. omeprazole 20 mg Oral capsule,delayed release(DR/EC) Take 20 mg by mouth once daily in the morning. PARoxetine 20 mg Oral tablet Take 20 mg by mouth once daily. phenytoin ER 100 mg Oral capsule Take 100 mg by mouth three times daily. risperiDONE 4 mg Oral tablet Take 4 mg by mouth once daily at bedtime. simvastatin 20 mg Oral tablet Take 20 mg by mouth once daily in the evening. traMADol 50 mg Oral tablet Take 50 mg by mouth every six hours as needed. Assessment and Recommendations: Ms. Lane is a 47 year old woman with admitted with hypoxia and clinical evidence of right heart failure as evidenced by progressive LE edema, mildly elevated LFTs, and cardiomegaly o n CXR in the setting of recently diagnosed GLORIA and >70 pack year smoking history. She is be ing gently diuresed (-700 over last 24hrs) and has had some mild improvement in O2 requireme nts since admission. Likely primarily group 3 based on already diagnosed GLORIA and suspected COPD. Would still recommend getting PFTs next week. Agree with review of outside sleep marilee dy records. - PFTs next week - Cont O2 therapy Other issues per primary team. Appreciate consult and will continue to follow. This patient was discussed with my attending pysician, Dr. Lisa Rivers, who agrees with my assessment and plan unless otherwise noted. Leobardo Rocha MD pgy2 Internal Medicine, [id number] Aye Fletcher MD - 05/04/2013 3:51 PM PDT INPATIENT CONSULT NOTE Consultation Date: 05/04/13 Author: AYE CARRILLO MD Consulting Attending: Lisa Rivers MD Reason for Consult: Pulmonary hypertension and right heart failure. Requesting Provider: Agus Hu MD HPI: Keo Lane is a 47yo F smoker with history of developmental delay, seizure d/o, bipolar d /o, PTSD, polysubstance abuse, hypothyroidism, and newly diagnosed GLORIA admitted with hypoxia and increased SOB and LE edema for further evaluation of suspected right heart failure and pulmonary htn. Ms. Lane was in her normal state of health and able to carry on daily activities under the supervision of her skilled nursing for DD until 03/26 when she was admitted to an OSH in [place] with sz in the setting of a known sz d/o. During that admission, Ms. Lane developed signi ficant LE edema and was found to be hypoxic. Her evaluation included negative CTA, negative troponin, increased BNP (220), EKG without ST changes but with R axis deviation, and TTE j luis wing right heart failure and pulmonary htn with normal left heart function with exception of mild diastolic dysfunction. She was discharged on a new 2L O2 requirement with PCP and card iology follow-up. She was also started on CPAP after polysomnography from the week prior to admission demonstrated GLORIA. Cardiology f/u recommended R heart cath after obtaining PFTs. Wh en Ms. Lane presented to her PCP appointment 05/01, she was sent immediately to the hospital with hypoxia. She had increased O2 requirement to 4L at the OSH and rapidly increasing edema and was transferred to [facility] for further evaluation. In route to [facility], EMS observed an acute desaturation (90-->83% on 4L) accompanied by acute hypotension (94/68 --> 66/40). They gave lasix for presumed pulmonary edema with rapid corre ction of BP and oxygenation. She has since had stable VS on 4-6L O2, though she had an addit ional sz 05/03 and is undergoing neurological evaluation. She complains of SOB and decreased a ctivity for the past month. Her caregiver reports that she could previously climb the stairs to her second story apartment and can now manage less than 10 yards without SOB. She has kasper d cough with yellow sputum production, new orthopnea, and 20# weight gain also within the la st month. Denies wheezing or hemoptysis. She reports CP sharp and localized to left breast, reproduced with palpation to the L breast. No pleuritic pain. PMH- Hypothyroidism, obesity, seizure disorder, DD/MR, bipolar d/o, PTSD. New GLORIA, right he art failure, pulmonary htn. ROS: Constitutional - Weight gain and decreased activity as above. Skin - No bleeding or rash Breast - Painful to palpation of L breast Eyes/Ears/Nose/Mouth/Throat - Negative for visual changes or oral infections Cardiovascular - Denies palpations. CP clarified as breast pain. Respiratory - As in HPI Gastrointestinal - Denies constipation/diarrhea or blood in stool Genitourinary - Denies dysuria or hematuria Musculoskeletal - Cramping in hands s/p sz episode 05/03. Neurologic/Psychiatric - Hx sz d/o, controlled until 2 sz since February. DD and psych d/o as ab ove. Hematologic/Lymphatic - No hx of DVT or PE Endocrine - Denies DM. Hx hypothyroidism. All other ROS negative. Current Inpatient Medications acetaminophen (aka TYLENOL) tablet 500 mg, [...] tablet 20 mg, 20 mg, Oral, QPM Allergies Allergen Reactions Erythromycin Flagyl (Metronidazole) Penicillins Sulfa (Sulfonamide Antibiotics) Family Hx: No known hx of lung disease. Mother with rheumatic fever. Social Hx: Lives in skilled nursing. 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 Smoking hx- 2-3ppd x 35yrs. Current 3-4 cigarettes/day. Hx of ETOH and IVDU. Physical Exam: Last Vitals: BP 119/65 | Pulse 63 | Temp 36.1 C (97 F) | RR 18 | Ht 1.499 m (4' 11") | Wt 106.9 kg (235 lb 10.8 oz) | SpO2 96% | BMI 47.57 kg/(m^2) 24 hour Vitals min/max : Systolic (24hrs), Av mmHg, Min:108 mmHg, Max:119 mmHg Diastolic (24hrs), Av mmHg, Min:61 mmHg, Max:65 mmHg Pulse Min: 63 Max: 78 Temp Min: 36.1 C (97 F) Max: 36.7 C (98.1 F) Resp Min: 18 Max: 18 SpO2 Min: 92 % Max: 97 % General Appearance: Obese female sitting upright in chair. Comfortable eating lunch. Mildly confused, pleasant. HEENT: NCAT. PERRLA. Oropharynx clear. Respiratory: Full air movement bilaterally. Scattered expiratory wheezes in all lung vasquez . No crackles/rhonchi/rales. No clubbing or cyanosis. Cardiovascular: RRR. No S3 or S4. Systolic murmur audible at LUSB. No parasternal heave. El evated JVP above clavicle when sitting upright. 3+ LE edema to mid-thigh bilaterally. Gastrointestinal: Obese, soft, nd, nt. Normal bs. Neurologic: A&O. Poor historian 2/2 DD, but responds appropriately and demonstrates some un derstanding of workup being completed. Data Outside labs: -elevated BNP- 220 -Negative troponin -AB.44 [facility]: CBC unremarkable. Mild thrombocytopenia. BMP wnl. Corrected calcium wnl. Elevated ALT/AST, Alk phos, and NH4 (84). Decreased albumin and total protein. Normal bili. TSH wnl Subtherapeutic phenytoin and valproic acid. Urine: Positive LCE, large WBC. Culture pending. Imaging: CXR 05/02 ([facility]): Mildly enlarged cardiac silhoette. Small L pleural effusion. No focal conso lidation or PTX. CTA (03/27, OSH): No radiology read. Appears negative for PE. Does not appear to have sv deg ree of emphysema. EKG (05/02 [facility]): Poor quality EKG. NSR, rate 75. ST abnormality with possible inferior suben docardial injury or lateral infarct of unknown age. EKG (05/02 OSH): R axis deviation. Low voltage. NSR rate 71. No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 viewed UE Neurological Function Sensation: intact Muscle Tone: normal Proprioception: intact Gross Motor: intact Fine Motor: Intact to manage ADLs Activities of Daily Living: UB Dressing: set-up seated UB Grooming: set-up seated LB Dressing: max assist Toileting: mod assist X 2 for transfer, dependent for hygiene, dependent for managing brie f Ambulation with ADL: Mod assist X 2 for several steps edge of bed to bedside chair Transfers: Supine to sit with mod assist Sit to stand with min-mod assist X 2 Transfer to bedside commode with mod assist X 2 Treatment provided this date: OT evaluation, functional transfer training, participation i n self care tasks out of bed, basic pacing and energy conservation training Ended session: Pt seated in bedside chair, call london hernández, caregiver present, RN aware ASSESSMENT: Pt is 47 yo female with volume overload from core pulmonale 2/2 pulmonary hype rtension. Pt present today with caregiver, very willing to participate and appreciative of therapy time and efforts. Pt is able to follow commands, uses humor appropriately, good ins ight into current weakness and need for extra assist. Pt appears significantly below functi onal baseline, will benefit from acute OT for goals outlined in plan of care. See care plan for goals. Recommendations: 24 hour assist, additional OT services, appropriate for SNF level of care Activity Recommendations: Up to chair and commode with two person nursing assist, encourag e time out of bed for meals and participation in ADLs PLAN: Frequency: 3x/week Duration: One week The above plan of care and goals were developed and reviewed with the patient. Good rehab potential for stated goals and requires continued rehabilitation services, given the patie nt's treatment is at a level of complexity or sophistication requiring the skills of a thera pist, specifically modified ADLs, functional transfer training, safety strategies. MARITZA MEJIA, OT A M PDTAsif - Linwood Faculty - 05/10/2013 12:09 PM PDTElectronically signed by Xuan bey 05/10/2013 12:09 PM PDTPlan of Demond - Ailin Scott - 05/10/2013 12:08 PM PDTProblem: Clark e Management Goals Goal: Discharge Needs Met Outcome: Gradual progress toward goal Per Dr. Lopez, pt may be ready to DC to SNF level of care as soon as tomorrow. She will go for right heart cath later this afternoon. T/C to [facility] in [place], directed to pt's "coordinator", Gustavo ([phone]). He states the Home pt resides in has 2 people who would be able to assist her with getting up in chair, and caring for her gener al needs. They do NOT have a SNF associated within their [facility]. He will talk with hi s team (they are all out to lunch) and call me back regarding what they feel would be best f or patient. Await his return call. Ailin Scott, RN 0815 T/C from Gustavo, states he spoke with his Alumni Relations Coordinator, they cannot accommodate pt. She will need to go to a SNF for rehab. He states they send many of their clients to [facility]. T/C to Isai at [facility], she confirms they have a bed o pening and requests we fax information. Met with pt to discuss plans. She is in agreement with [facility]. Tasked to have SNF search send to [facility]. Attempting to obt ain PASR for MR/DD client, have call into [facility] at [phone], as well as Diversion Transiti on Coordinator, Jaime, at [place] Medicaid Office. Ailin Scott RN 1413 T/C from [facility] at [facility], they can accept pt tomorrow. PASR form completed by me (with assistance from Jaime as mentioned above). [facility] will also contact Medicaid [employer] for her own authorization. Notified Gustavo at [facility] that Keo has b een accepted to [facility]. Notified Dr. Lopez that SNF bed available for tomorrow. Will arrange Medicaid transport (they have to come from [facility]) today. MARANDA Champion [address] Mailcode: [address] [place] [phone] AILIN SCOTT [address] Mailcode: [address] [place] [id number] lan of Demond - Rosana Brar, PT - 05/10/2013 11:49 AM PDTPhysical Therapy 05/10/2013 11:49 AM Hospital Day # 8. Patient seen on 7C Brief Hospital Course: Keo Lane is a 47 y/o F with PMHx morbid obesity, GLORIA, COPD (on h ome O2), bipolar/PTSD, developmental delay, hypothyroidism, and seizure disorder [facility]. ([facility] 05/09 ) Status Update: pt to go to cardiac cath today (per RN) Relevant Precautions: Fall risk, mild developmental delay, monitor pulse and o2 sats with further activity Subjective: Pt agreeable to working with therapy. Complains of hip pain, likely from lying in bed for so long. Pain: not rated, pt endorses hip pain and generalized stiffness from not having been up on out bed yet today Objective: Pt found supine in with head of bed elevated upon entering room. Supine > sit with moderate assist x 1. Pt initiated bilateral lower extremity movement ove r edge of bed. Guided reach toward bed rail to assist with rolling to right side to push up , pt required moderate assist at trunk to come to sit. Pt reported dizziness in sitting. Vitals in sittin/66, oxygen saturation at 92% on 2L supplemental oxygen per nasal can domi, HR 80. RN informed. Sit edge of bed x approximately 5 minutes for vitals assessment and to allow pt to get her bearings. Sit to stand with minimal to moderate assist 2. Pt requires cuing to stand fully upright as well as tactile cuing and additional time to complete transfer. Stand step transfer to sit on bedside commode with minimal assist x 2. Poor eccentric cont rol. Sit <> stand additional time to remove pt's brief (pt states she has to use the commode urg ently). Sit <> stand for dependent jonatan-care, minimum assist x 1. Pt requesting to sit due to fati taty. Sit <> stand for transfer to chair (therapist performing swap out of commode, no stepping r equired), minimum assist. Pt left sitting up in chair with caregiver present in room, performing self-care tasks with OT present. RN aware. Assessment: Pt is making slow progress with mobility, continuing to require minimal to mode rate assist x 2 for all mobility. Pt verbalizes motivation, however requires additional bhargav e to complete all tasks as well continued verbal cues as she is easily distracted in convers ation. It is clear that pt enjoys and is comfortable with her caregiver. Very social. See care plan for goals. Updated Plan & Recommendations: Continue with POC. Recommend 24 hour assist upon discharge with continued PT intervention. Pt is a good Residential Facility candidate. Activity Plan: Up to bedside commode or chair with 2 person medical staff director assist for safety. Up for all meals in chair. ROSANA BRAR PT, DPT lan of Care - Kaylee Aparicio RN - 05/10/2013 10:21 AM PDTProblem: General Plan of Care (Adult) Intervention: NPEOC Acute Goal: Individualization/Patient-Specific Goal Goals:1. Will have no falls or injuries. 2. Will have no skin breakdown. 3. Will have tolerable level of pain. Interventions:1. Remind pt to call staff prior to transfer, assist with all transfers, non skid slippers, maintain a well lit and clutter free environment. 2. Turn and reposition every 2 hours, keep skin clean and dry, monitor skin condition daily , barrier cream to skin after incontinence care, encourage adequate nutrition and hydration within limits. 3. Assess effectiveness of pain meds given within an hour, offer non pharmacologic approach to pain like cold or heat packs, assist with repositioning for comfort. andoff - Jose Aguiar RN - 05/10/2013 6:50 AM PDTNursing Handoff Report: Primary focus of hospitalization: Pulmonary Hypertension - transferred from [facility] to ED with 1 month of progressive SOB and fluid retention. Past medical history: COPD, Bipolar/PTSD, hypothyroidism, MR/DD and reported HTN, seizure d isorder (2 this hospital stay, last event 05/04) UTI: (finished cipro) Morbid obesity, Osteoar thritis, GERD, Remote H/O polysubstance abuse including EToH, meth, and IVDU, current smoker (on nicotine patch) Shift events (i.e changes in assessment, treatment): Patient actively diuresing. Frequently lethargic-somnolent until late morning. Patient VERY weak with last bed to commode transfer /flat affect. Patient now using bedpan or bedside commode. Patient also very MORGAN and require s 4-5L O2 via NC when mobilizing. Patient uses 1L NC while at rest. Patient continues to dec line CPaP. Patient had two BM's 05/09. Patient goal of the day: Sleep Outcome of goal of the day: Goal met. Outstanding interventions: Continue to maintain strict I&O's. Family contact/psych-social issues: Developmentally delay, has a personal carer, Tila, present at bedside during the day. Staying locally at a hotel at night. Tila is an employee of the patients assisted. Patient likes to talk about fishing. Did you assess pain in last 2 hours of your shift?: Yes. If pain uncontrolled, has patient education been given on alternative plan and team notifie d?: N/A Did you offer toileting in the last 2 hours of your shift?: Yes. Bed alarm in use? Yes, but PT has never tried to get out of bed w/out assistance. Kalyan hamlin signed by Jose Aguiar RN at 05/10/2013 6:53 AM PDTPlan of [facility] - Jose Aguiar RN - 05/09/2013 10:50 PM PDTProblem: General Plan of Care (Adult) Intervention: NPEOC Acute 1.) Patient will report "absence of pain or pain manageable AEB self-reported pain <4 /10 2.) Patient will maintain skin integrity AEB no new skin tears or breakdown. 3.) Patient will be without falls or trauma during shift and throughout hospitalization 4) Patient will have understanding of heart failure education that she will continue to use and apply at home. 5) Patient to regain/maintain fluid and electrolyte balance during hospitalization 6) Patient regain/mainatin baseline respiratory status during hospitalization AEB No need for supplementary O2. Interventions: 1.) Assess pain every 4 hours and PRN. Offer and administer medication as needed 2.) Offer and provide assistance with repositioning as needed. Pt is alert and oriented, ab le to reposition self with encouragement, lozano care/jonatan care Q shift and prn. 3.) Bed in low position with brakes locked, side rails x3, room near station, call light in reach, clutter free environment with needed personal items in reach, and bed alarm utilized . 4) Reinforce need for pt to weigh herself (each morning after first void), and when to repo rt to physician (a weight gain of more than 2+lbs in one day or 3-5+lbs per week), discuss s odium restrictions. 5) Administer diuretics as ordered, strict I/O's, daily weights per orders, monitor for sig ns of increasing volume overload (increasing edema or SOB) 6) Diuretics as ordered, encourage t/c/d/b, encourage ambulation, MDI's as ordered, titrate O2 as tolerated to sats >92%. Electronically signed by Jose Aguiar RN at 3 10:[address] [facility] Christian Ojeda - 05/09/2013 4:48 PM PDTGoals 1.) Patient will rate pain </=3 /10 2.) Patient will maintain skin integrity 3.) Patient will be without falls 4) Patient will have understanding of heart failure education that can be continued and sreekanth lied post discharge. 5) Patient to regain and/or maintain fluid and electrolyte balance during hospitalization 6) Patient will regain/mainatin baseline respiratory status during hospitalization. Pt goal: To go home Interventions: 1.) Assess pain at least every 4 hours and PRN. Offer and administer medication as needed. 2.) Offer and provide assistance with repositioning as needed. Pt is alert and oriented, ab le to reposition self with encouragement. 3) Lozano care/jonatan care this shift and prn. 4.) Bed in low position with brakes locked, side rails x3, room near station, call light in reach, clutter free environment with needed personal items in reach, reinforce need to call for assistance, and bed alarm utilized. 5) Reinforce need for pt to weigh herself (each morning after first void), and when to repo rt to physician (a weight gain of more than 2+lbs in one day or 3-5+lbs per week), discuss s odium restrictions. 6) Administer diuretics as ordered, strict I/O's, daily weights per orders, monitor for sig ns of increasing volume overload (increasing edema or SOB) 7) Diuretics as ordered, encourage t/c/d/b, encourage ambulation, MDI's as ordered, titrate O2 as tolerated to sats >92%. lan of Care - Diane Collins, PT - 05/09/2013 3:43 PM PDT Physical Therapy Evaluation 05/09/2013 3:43 PM Admitted on 05/02/2013 8:40 PM, hospital day # 7 Seen on 7c Brief Hospital Course: Keo Lane is a 47 y/o F with PMHx morbid obesity, GLORIA, COPD (on home O2), bipolar/PTSD, developmental delay, hypothyroidism, and seizure disorder transferre d from OSH with volume overload from core pulmonale 2/2 pulmonary hypertension. ([facility] 04/30 0) Relevant Precautions: Fall risk, mild developmental delay, monitor pulse and o2 sats with further activity No past medical history on file. No past surgical history on file. Activity orders: up ad uriah Living Environment: Lives in a skilled nursing with 24hr caregivers in [place]. One caregiver, Dominique, is present at time of evaluation and able to provide further information. Pt defers to caregiver to provide info. There are several buildings within [facility], inclu ding the medical house, where they can provide higher level of care. Prior Level of Function: Pt had been declining with her function, getting SOB quickly, to t he point where she could ambulate ~20 feet, then needing to sit and catch her breath. Normal ly she could ambulate distances within the house without difficulty. No assistive device nee ded. Staff available to assist as needed Patient / Family Goal: "Let's do it girlie!" appeared eager to participate. Communication: Swedish Barriers: none specific. Per caregiver, pt much more enthusiastic about participation at th is time than she had been earlier in the day. Pain: mild at right hip, chronic? Not sure of origin. Vital signs: stable via observation during mobility today. On tele. No SOB noted. Cognitive Screen Alert, oriented to situation. Following all discussion and commands. Sreekanth eared baseline per caregiver. Physical Assessment ROM: limited given body habitus Strength: unable to SLR bilaterally. Intact at ankles. Able to bear weight in standing, bu t heavily flexed over, and requires two person assist. Edema: difficult to assess given body habitus - possible at feet, LEs. Skin Integrity: intact where viewed. Neurological Function Sensation: intact Muscle Tone: intact Proprioception: not tested Gross Motor: intact Fine Motor: intact Balance: sitting edge of bed supervised. Standing minimal assist of 2. Mobility & Transfers: supine to sit moderate assist, cuing for sequencing for success. Pt s tates "I dont know" when asked how she normally does transfer. Able to suggest and pt follow s saying "yeah, I think that's how I do it". Brought LEs to side to start, reach across body for partial roll, then prop onto elbow. Sit to stand with moderate assist of 2 (caregiver participating). Steps taken to chair with moderate assist of 2, weakening and flexing at hips, needing faci litation to keep upright. Poor eccentric control for descent to chair, needing support. Gait: sidesteps to chair only. Not safe today to progress. [facility] BASIC MOBILITY How much difficulty does the patient currently have: 1. Turning over in bed (including adjusting bedclothes, sheets, blankets) 2 2. Sitting down/standing up from chair with arms (bedside commode, wheelchair, etc) 2 3. Moving from supine to sitting edge of bed 2 How much help from another person does the patient currently need for: 4. Moving to and from a bed to a chair/wheelchair 2 5. Walking in hospital room 1 6. Climbing 3-5 steps with a railing 1 TOTAL 10 1 - Unable to do/total assistance 2 - A lot 3 - A little 4 None Treatment provided this date: mobility training as above. Developed and discussed activity plan with pt, caregiver, and RN. Provided pt and caregiver with pt home exercise program wri tten and demonstration for seated LAQ, hip flexion, ankle circles and supine ankle pumps, he el slides, SAQ, glut sets, hip abd. Recommended sets to music - pt seemed to like that - as a guideline for time. Gave time frame for ~ 15 minutes per session. Ended session: pt up in chair, caregiver present, RN aware. Pt comfortable. ASSESSMENT: Pt admitted from OSH for maangement of volume overload from core pulmonale 2/2 pulmonary hypertension. PLOF has been generally at supervised level, up until ~ several week s ago, as pt becoming more SOB and less mobile. Currently, pt is quite below her baseline, 6 0-80% impaired given AMPA rating, and is requiring two person assist for bed to chair trans fers. Per caregiver, there may be a building who could provide this level of care within [facility] where she lives. She will need a facility which can provide her heavy physical assi st and would benefit from additional PT to progress mobility and strength. Pt appropriate fo r inpt PT to address deficits. Interpretation of [facility] Short Form - Basic Mobility: Score (in points) % of Functional Impairment, Limitation, Restriction 6 100% impaired, limited, restricted 7-9 At least 80%, but less than 100% impaired, limited restricted 10-14 At least 60%, but less than 80% impaired, limited restricted 15-19 At least 40%, but less than 60% impaired, limited restricted 20-22 At least 20%, but less than 40% impaired, limited restricted 23 At least 1%, but less than 20% impaired, limited restricted 24 0% impaired, limited restricted This patient has good rehabilitation potential to achieve stated goals (see Care Plan for g oals) and requires continued rehabilitation services. Recommendations: currently needing 24hr assist and further PT. Could benefit from SNF type situation. Activity Plan: up to chair for meals with 2 person assist, exercise program 1-2x/day PLAN: Therex, transfers, gait, pt and caregiver education Frequency: 5x/week Next visit: progress gait as able. The above plan of care and goals were developed and reviewed with the patient. CRISTINE COLLINS, PT lan of Care - Juana Naylor RD - 05/09/2013 10:19 AM PDTProblem: Nutrition Interventions Intervention: Food and nutrient distribution type or amount Pt continues with excellent po intake of meals, likely meeting nutrition needs. Low Na educ ation provided at previous RD visit, caregiver was not present at bedside for any f/u questi ons. Suspecting fair/moderate compliance. Labs, meds, chart reviewed. Juana Naylor RD, LD Pager # [phone] andoff - Codey koroma, Jose Otoole RN - 05/09/2013 6:31 AM PDTNursing Handoff Report: Primary focus of hospitalization: Pulmonary Hypertension - transferred from [facility] to ED with 1 month of progressive SOB and fluid retention. Past medical history: COPD, Bipolar/PTSD, hypothyroidism, MR/DD and reported HTN, seizure d isorder (2 this hospital stay, last event 05/04) UTI: (finished cipro) Morbid obesity, Osteoar thritis, GERD, Remote H/O polysubstance abuse including EToH, meth, and IVDU, current smoker (on nicotine patch) Shift events (i.e changes in assessment, treatment): Patient actively diuresing. Frequently lethargic-somnolent and then "woke-up" around 1400 this shift. Patient VERY weak with last bed to commode transfer/flat affect. Patient now using bedpan or bedside commode. Patient al so very MORGAN and requires 4-5L O2 via NC when mobilizing. Patient uses 1L NC while at rest. P atient continues to decline CPaP. Patient had two BM's this shift. Patient goal of the day: Sleep Outcome of goal of the day: Goal met. Outstanding interventions: Continue to maintain strict I&O's. Family contact/psych-social issues: Developmentally delay, has a personal carer, Tila, present at bedside during the day. Staying locally at a hotel at night. Tila is an employee of the patients assisted. Patient likes to talk about fishing. Did you assess pain in last 2 hours of your shift?: Yes. If pain uncontrolled, has patient education been given on alternative plan and team notifie d?: N/A Did you offer toileting in the last 2 hours of your shift?: Yes. Bed alarm in use? Yes, but PT has never tried to get out of bed w/out assistance. Kalyan hamlin signed by Jose Aguiar RN at 05/09/2013 6:37 AM PDTPlan of Care - Jose Aguiar RN - 05/08/2013 8:43 PM PDTProblem: General Plan of Care (Adult) Intervention: NPEOC Acute 1.) Patient will report "absence of pain or pain manageable AEB self-reported pain <4 /10 2.) Patient will maintain skin integrity AEB no new skin tears or breakdown. 3.) Patient will be without falls or trauma during shift and throughout hospitalization 4) Patient will have understanding of heart failure education that she will continue to use and apply at home. 5) Patient to regain/maintain fluid and electrolyte balance during hospitalization 6) Patient regain/mainatin baseline respiratory status during hospitalization AEB No need for supplementary O2. Interventions: 1.) Assess pain every 4 hours and PRN. Offer and administer medication as needed 2.) Offer and provide assistance with repositioning as needed. Pt is alert and oriented, ab le to reposition self with encouragement, lozano care/jonatan care Q shift and prn. 3.) Bed in low position with brakes locked, side rails x3, room near station, call light in reach, clutter free environment with needed personal items in reach, and bed alarm utilized . 4) Reinforce need for pt to weigh herself (each morning after first void), and when to repo rt to physician (a weight gain of more than 2+lbs in one day or 3-5+lbs per week), discuss s odium restrictions. 5) Administer diuretics as ordered, strict I/O's, daily weights per orders, monitor for sig ns of increasing volume overload (increasing edema or SOB) 6) Diuretics as ordered, encourage t/c/d/b, encourage ambulation, MDI's as ordered, titrate O2 as tolerated to sats >92%. Electronically signed by Jose Aguiar RN at 3 8:43 PM PDTHandoff - Marek Lucas RN - 05/08/2013 6:51 PM PDTNursing Handoff Report: Primary focus of hospitalization: Pulmonary Hypertension- transferred from [facility] al to ED with 1 month of progressive SOB and fluid retention. Past medical history: Bipolar disorder, hypothyroidism, MR/DD and reported HTN, seizure dis order (2 during this hospital stay, last event: 05/04) UTI: (finished cipro) Morbid obesity B ipolar/PTSD, Osteoarthritis, Remote H/O polysubstance abuse including ETOH, meth, and IVDU, GERD, Current smoking (on nicotine patch).COPD. Shift events (i.e changes in assessment, treatment): -Patient continues to actively diurese . Patient very lethargic-somnolent in AM and then "woke-up" around 1400 this shift. Patient VERY weak with last bed to commode transfer. Patient now using bedpan. Patient also very MORGAN and requies 4-5 lpm O2 via NC when mobilizing. Patient uses 1 lpm NC while at rest. Patient continues to decline CPaP. Patient had two BM's this shift. Patient goal of the day: "To get up OOB." Outcome of goal of the day: Goal met. Outstanding interventions: Continue to maintain strict I&O's. Family contact/psych-social issues: Developmentally delay, has a personal carer, Tila, present at bedside during the day. Staying locally at a hotel at night. Tila is and employee of [employer] patients assisted. Patient likes to talk about fishing. Did you assess pain in last 2 hours of your shift?: Yes. Patient states "pain is under cont rol" at shift change. Patient turned at 1850. If pain uncontrolled, has patient education been given on alternative plan and team notifie d?: N/A Did you offer toileting in the last 2 hours of your shift?: Yes. Patient using bedpan for u rinating and stooling. Bed alarm in use? Yes v aluation - Marek Lucas RN - 05/08/2013 6:43 PM PDTProblem: General Plan of Care (Adult) Intervention: NPEOC Acute 1.) Patient will report "absence of pain or pain manageable AEB self-reported pain <4 /10 2.) Patient will maintain skin integrity AEB no new skin tears or breakdown. 3.) Patient will be without falls or trauma during shift and throughout hospitalization 4) Patient will have understanding of heart failure education that she will continue to use and apply at home. 5) Patient to regain/maintain fluid and electrolyte balance during hospitalization 6) Patient regain/mainatin baseline respiratory status during hospitalization AEB No need for supplementary O2. Interventions: 1.) Assess pain every 4 hours and PRN. Offer and administer medication as needed 2.) Offer and provide assistance with repositioning as needed. Pt is alert and oriented, ab le to reposition self with encouragement, lozano care/jonatan care Q shift and prn. 3.) Bed in low position with brakes locked, side rails x3, room near station, call light in reach, clutter free environment with needed personal items in reach, and bed alarm utilized . 4) Reinforce need for pt to weigh herself (each morning after first void), and when to repo rt to physician (a weight gain of more than 2+lbs in one day or 3-5+lbs per week), discuss s odium restrictions. 5) Administer diuretics as ordered, strict I/O's, daily weights per orders, monitor for sig ns of increasing volume overload (increasing edema or SOB) 6) Diuretics as ordered, encourage t/c/d/b, encourage ambulation, MDI's as ordered, titrate O2 as tolerated to sats >92%. Interventions that worked/didn't work: 1. Goal met. 2. Goal met. 3. Goal met. 4. Goal parti ally-met. 5. Goal partially-met. 6. Goal partially-met My recommendations forward: When patient stabilizes. Continue to mobilize up to cardiac scott ir. Patient Stability:Moderately UnstableElectronically signed by Marek Lucas RN at 3 6:45 PM PDTPlan of Marry Jolly RN - 05/08/2013 10:06 AM PDTProblem: Case Man agement Goals Goal: Discharge Needs Met Case Management Initial Assessment Reason for Admission: Dyspnea and edema Admitted From: Outside Hospital Emergency Contact: Extended Emergency Contact Information Primary Emergency Contact: Lidia Archer Relation: Other Past Medical History: Congestive Heart Failure Pulmonary Hypertension, No admission procedures for hospital encounter. Lives With: Caregiver Living Arrangement: Retirement in [place] Functional Level Prior to Admission: 2-->assistive person Transportation Available: Medical tranport or caregiver Equipment Currently used at Home/DME Provider: Home O2 Home Health/Infusion Agency: N/A Insurance/Funding: @PAYORNAME@, [employer] Assessment:: 47 year old female with pmh/o chronic smoking, morbid obesity, GLORIA, COPD ( on home O2), bipolar/PTSD, DD, hypothyroidism, HLD, and seizure disorder (on AED's) who in infante sferred from OSH after referral from PCP today after presenting with worsened edema and dysp eve with subsequent echo showing pHTN per report. Patient lives [facility] which is Group adult home in [place], [place]. Care give r present.States that over the past month(s) patient's breathing has become increasingly j luis rt and has gained "at least 20 pounds". Also with worsened LE edema. Anticipated Discharge Needs: Return to Retirement with assist, Home O2 Assessment done by:[place] [id number] lan of Marek West RN - 05/08/2013 8:00 AM PDTProblem: General Plan of Care (Adult) Intervention: NPEOC Acute 1.) Patient will report "absence of pain or pain manageable AEB self-reported pain <4 /10 2.) Patient will maintain skin integrity AEB no new skin tears or breakdown. 3.) Patient will be without falls or trauma during shift and throughout hospitalization 4) Patient will have understanding of heart failure education that she will continue to use and apply at home. 5) Patient to regain/maintain fluid and electrolyte balance during hospitalization 6) Patient regain/mainatin baseline respiratory status during hospitalization AEB No need for supplementary O2. Interventions: 1.) Assess pain every 4 hours and PRN. Offer and administer medication as needed 2.) Offer and provide assistance with repositioning as needed. Pt is alert and oriented, ab le to reposition self with encouragement, lozano care/jonatan care Q shift and prn. 3.) Bed in low position with brakes locked, side rails x3, room near station, call light in reach, clutter free environment with needed personal items in reach, and bed alarm utilized . 4) Reinforce need for pt to weigh herself (each morning after first void), and when to repo rt to physician (a weight gain of more than 2+lbs in one day or 3-5+lbs per week), discuss s odium restrictions. 5) Administer diuretics as ordered, strict I/O's, daily weights per orders, monitor for sig ns of increasing volume overload (increasing edema or SOB) 6) Diuretics as ordered, encourage t/c/d/b, encourage ambulation, MDI's as ordered, titrate O2 as tolerated to sats >92%. Tay - Amadou Lane RN - 05/08/2013 6:06 AM PDTGoals 1.) Patient will rate pain </=3 /10 2.) Patient will maintain skin integrity 3.) Patient will be without falls 4) Patient will have understanding of heart failure education that can be continued and sreekanth lied post discharge. 5) Patient to regain and/or maintain fluid and electrolyte balance during hospitalization 6) Patient will regain/mainatin baseline respiratory status during hospitalization. Pt goal: To go home Interventions: 1.) Assess pain at least every 4 hours and PRN. Offer and administer medication as needed. 2.) Offer and provide assistance with repositioning as needed. Pt is alert and oriented, ab le to reposition self with encouragement. 3) Lozano care/jonatan care this shift and prn. 4.) Bed in low position with brakes locked, side rails x3, room near station, call light in reach, clutter free environment with needed personal items in reach, reinforce need to call for assistance, and bed alarm utilized. 5) Reinforce need for pt to weigh herself (each morning after first void), and when to repo rt to physician (a weight gain of more than 2+lbs in one day or 3-5+lbs per week), discuss s odium restrictions. 6) Administer diuretics as ordered, strict I/O's, daily weights per orders, monitor for sig ns of increasing volume overload (increasing edema or SOB) 7) Diuretics as ordered, encourage t/c/d/b, encourage ambulation, MDI's as ordered, titrate O2 as tolerated to sats >92%. Interventions that worked/didn't work:All worked. My recommendations forward:Continue Patient Stability:Moderately Stable andoff - Amrik, Zeb Self RN - 05/08/2013 12:08 AM PDTPrimary focus of stay: Transferred from [facility] f or further work up. R heart failure, Pulmonary Hypertension, seizure disorder (2 during this hospital stay, last 05/04) 1 month hx of progressive SOB and fluid retention. UTI (finished c ipro) PMH: 1. GLORIA with pHTN - pt started wearing CPAP about a week ago 2. Morbid obesity 3. Bipolar/PT SD 4. Developmental Delay 5. Osteoarthritis 6. Remote H/O polysubstance abuse including etoh , meth, and IVDU 7. GERD 9.Current smoking (on nicotine patch)11. HLD 12. Hypothyroidism Pertinent physical findings: A&Ox4 but seems to lack full appreciation of her situation. Go al is to wean from O2 but maintain sats >92%. Currently achieving sats with 1L NC but needs increase to 4-5L when walking, moving to chair/BR, ect. Recorded oximetry study completed b y RT tonight. Pt uses cpap at night but refused again this evening for RT. BLE edema 3+. La six 40 IV 7 day shift with good output. Has lozano for strict I/O (had been incontinent), L BM /8, extra-large, soft, dark brown. 2L fluid restriction. Heart failure packet and educat ion done 05/05. PFT's done 05/06. Orders to follow up on: wean O2 for SaO2 >92%; continue strict I/O; encourage mobility. Last pain assessment/reassessment: denied pain this shift Psych/social issues: Developmentally delayed, has a personal carer, Tila, present during the d ay. Staying locally at a hotel at night. Tila is and employee of the pt's assisted. Pt lik es to talk about fishing. Brother phoned evening of 05/06. Hygiene: Shower 05/06 day shift. Pt would like to shower again today if possible. Last patient visit (i.e. Falls/Activity/Comfort/Environment/Toileting/Skin): Utilized bed a larm but pt did call appropriately for help. SCD. Pt has agreed to up to chair for meals and walking. Anticipated or pending procedures: Smoking cessation consult Pt Goal: To go home. Outcome of pt goal: Unable to meet. lan of Care - Zeb Lane RN - 05/07/2013 11:35 PM PDTGoals 1.) Patient will rate pain </=3 /10 2.) Patient will maintain skin integrity 3.) Patient will be without falls 4) Patient will have understanding of heart failure education that can be continued and sreekanth lied post discharge. 5) Patient to regain and/or maintain fluid and electrolyte balance during hospitalization 6) Patient will regain/mainatin baseline respiratory status during hospitalization. Pt goal: To go home Interventions: 1.) Assess pain at least every 4 hours and PRN. Offer and administer medication as needed. 2.) Offer and provide assistance with repositioning as needed. Pt is alert and oriented, ab le to reposition self with encouragement. 3) Lozano care/jonatan care this shift and prn. 4.) Bed in low position with brakes locked, side rails x3, room near station, call light in reach, clutter free environment with needed personal items in reach, reinforce need to call for assistance, and bed alarm utilized. 5) Reinforce need for pt to weigh herself (each morning after first void), and when to repo rt to physician (a weight gain of more than 2+lbs in one day or 3-5+lbs per week), discuss s odium restrictions. 6) Administer diuretics as ordered, strict I/O's, daily weights per orders, monitor for sig ns of increasing volume overload (increasing edema or SOB) 7) Diuretics as ordered, encourage t/c/d/b, encourage ambulation, MDI's as ordered, titrate O2 as tolerated to sats >92%. can - Other, Faculty - 05/07/2013 1:35 PM PDT a ndbharath - Leonides, Thuy Self RN - 05/07/2013 1:08 PM PDTPrimary focus of stay: Transferred f [facility] for further work up. R heart failure, Pulmonary Hypertension, seizure disorder (2 during this hospital stay, last 05/04) 1 month hx of progressive SOB and fluid re tention. UTI (finished cipro) PMH: 1. GLORIA with pHTN - pt started wearing CPAP about a week ago 2. Morbid obesity 3. Bipolar/PT SD 4. Developmental Delay 5. Osteoarthritis 6. Remote H/o polysubstance abuse including etoh , meth, and IVDU 7. GERD 9.Current smoking (on nicotine patch)11. HLD 12. Hypothyroidism Pertinent physical findings: A&Ox4 but seems to lack full appreciation of her situation. Go al is to weaning O2 to sats >92%. Needs increase to 5L when walking, moving to chair/BR, the n can go back to 3L. Uses cpap at night. BLE edema 3+. Lasix 40 IV 05/07 day shift with good o utput. Has lozano for strict I/O (had been incontinent), LBM 05/06, medium, soft, dark brown. 2 L fluid restriction. Heart failure packed and education done 05/05. Difficult to stay awake more than short periods to eat, get OOB. PFT's done 05/06. Orders to follow up on: wean O2 for SaO2 >92%. Keep awake during the day as possible so can sleep at night Last pain assessment/reassessment: denied pain this shift Psych/social issues: Developmentally delayed, has a personal carer, Modesta present during the day. Staying locally at a hotel at night. Modesta indicated that she will be relieved by ano ther caregiver from the pt's care center if her stay at [facility] becomes extended. Pt likes to t alk about fishing. Brother phoned evening of 05/06. Hygiene: Shower 05/06 day shift. Last patient visit (i.e. Falls/Activity/Comfort/Environment/Toileting/Skin): caregiver Narcisa morrison in room. Utilized bed alarm but pt did call appropriately for help. SCD. Encourage incre ased mobility. Pt agrees to up to chair for meals and walking. Anticipated or pending procedures: Over noc oximetry 05/06, smoking cessation consult Pt Goal: To get oob to chair Outcome of pt goal: Met lan of Care - May Thuy rodriguez RN - 05/07/2013 8:44 AM PDTProblem: General Plan of Care (Adult) Intervention: NPEOC Acute 1.) Patient will rate pain <4 /10 2.) Patient will maintain skin integrity 3.) Patient will be without falls 4) Patient will have understanding of heart failure education that she will continue to use and apply at home. 5) Patient to regain/maintain f/e balance during hospitalization 6) Patient regain/mainatin baseline respiratory status during hospitalization. Pt goal: Get out of bed to a chair for breakfast. Interventions: 1.) Assess pain every 4 hours and PRN. Offer and administer medication as needed 2.) Offer and provide assistance with repositioning as needed. Pt is alert and oriented, ab le to reposition self with encouragement, lozano care/jonatan care Q shift and prn. 3.) Bed in low position with brakes locked, side rails x3, room near station, call light in reach, clutter free environment with needed personal items in reach, and bed alarm utilized . 4) Reinforce need for pt to weigh herself (each morning after first void), and when to repo rt to physician (a weight gain of more than 2+lbs in one day or 3-5+lbs per week), discuss s odium restrictions. 5) Administer diuretics as ordered, strict I/O's, daily weights per orders, monitor for sig ns of increasing volume overload (increasing edema or SOB) 6) Diuretics as ordered, encourage t/c/d/b, encourage ambulation, MDI's as ordered, titrate O2 as tolerated to sats >92%. valuation - [facility] kriss, Zeb Self RN - 05/07/2013 6:44 AM PDTGoals: 1.) Patient will rate pain <3 /10 2.) Patient will achieve good rest/sleep for healing 3.) Patient will maintain skin integrity 4.) Patient will be without falls 5) Patient will have understanding of heart failure education that she will continue to us e and apply at home. Pt goal: Get a bedtime snack of chocolate pudding. Interventions: 1.) Assess pain every 3 hours and PRN. Offer and administer medication as needed 2.) Encourage good sleep/rest by turning off TV and lights and providing quiet enviroment. 3.) Offer and provide assistance with repositioning as needed. Pt is alert and oriented, ab le to reposition self with encouragement 4.) Bed in low position with brakes locked, side rails x2, room near station, call light in reach, clutter free environment with needed personal items in reach, and bed alarm utilized . 5) Reinforce need for pt to weigh herself (each morning after first void), and when to repo rt to physician (a weight gain of more than 2+lbs in one day or 3-5+lbs per week). 6) Assess understanding of following 2gm Na+ restriction and continue dialogue regarding nu tritional choices at home that would meet this requirement. Interventions that worked/didn't work:All worked but CHF education needs to be reinforced. My recommendations forward:contineu Patient Stability:Moderately Stable lan of Care - Zeb Lane RN - 05/07/2013 3:47 AM PDTGoals: 1.) Patient will rate pain <3 /10 2.) Patient will achieve good rest/sleep for healing 3.) Patient will maintain skin integrity 4.) Patient will be without falls 5) Patient will have understanding of heart failure education that she will continue to us e and apply at home. Pt goal: Get a bedtime snack of chocolate pudding. Interventions: 1.) Assess pain every 3 hours and PRN. Offer and administer medication as needed 2.) Encourage good sleep/rest by turning off TV and lights and providing quiet enviroment. 3.) Offer and provide assistance with repositioning as needed. Pt is alert and oriented, ab le to reposition self with encouragement 4.) Bed in low position with brakes locked, side rails x2, room near station, call light in reach, clutter free environment with needed personal items in reach, and bed alarm utilized . 5) Reinforce need for pt to weigh herself (each morning after first void), and when to repo rt to physician (a weight gain of more than 2+lbs in one day or 3-5+lbs per week). 6) Assess understanding of following 2gm Na+ restriction and continue dialogue regarding nu tritional choices at home that would meet this requirement. andoff - Amrik, Zeb Self RN - 05/07/2013 2:16 AM PDTPrimary focus of stay: Transferred from [facility] f or further work up. R heart failure, Pulmonary Hypertension, seizure disorder (2 during this hospital stay, last 05/04) 1 month hx of progressive SOB and fluid retention. UTI (finished c ipro) PMH: 1. GLORIA with pHTN - pt started wearing CPAP about a week ago 2. Morbid obesity 3. Bipolar/PT SD 4. Developmental Delay/Mental Retardation 5. Osteoarthritis 6. Remote H/o polysubstance a buse including etoh, meth, and IVDU 7. GERD 9.Current smoking (on nicotine patch)11. HLD 12. Hypothyroidism Pertinent physical findings: A&Ox4 but seems to lack full appreciation of her situation. A wake and alert before bedtime tonight. Goal is to weaning oxygen but upon arrival this shift found O2 at 5 liters. Weaned down to 3L and maintained sat at 92%. Needs increase to 5L wh en walking, moving to chair/BR, then can go back to 3L. Uses cpap at night. BLE edema 3+. La six 40 IV 05/06 day shift with good output. Has lozano for strict I/O (had been incontinent) On e BM this shift (05/06), medium, soft, dark brown. 2L fluid restriction. Heart failure packed and education done 7/6. Pt reported to have sleptcontinues to be very sleepy this afternoon. Difficult to stay awak e more than short periods to eat, get OOB. Page sent to Dr. Lopez with info at 1500. Orders to follow up on: wean O2 for SaO2 >92%. Keep awake during the day as possible so can sleep at night Last pain assessment/reassessment: denied pain this shift Psych/social issues: Developmentally delayed, has a personal carer, Modesta present during the day. Staying locally at a hotel at night. Modesta indicated that she will be relieved by ano ther caregiver from the pt's care center if her stay at [facility] becomes extended. Pt likes to t alk about fishing. Brother phoned this evening (05/06) to check on pt. Hygiene: Shower 05/06 day shift. Last patient visit (i.e. Falls/Activity/Comfort/Environment/Toileting/Skin): caregiver Narcisa morrison in room until about 2100. Utilized bed alarm but pt did call appropriately for help. SCD . Encourage increased mobility. Pt agrees to up to chair for meals and walking. Anticipated or pending procedures: Plan for PFTs Tuesday Pt Goal: To get a bedtime snack of chocolate pudding. Outcome of pt goal: Met andoff - Yuni Pagan RN - 05/06/2013 4:52 PM PDTPrimary focus of stay: Transferred from [facility] for further work up. R heart failure, Pulmonary Hypertension, seizure disorder (2 during this hospital stay, last 05/04) 1 month hx of progressive SOB and fluid retention. UTI (finished ci pro) PMH: 1. GLORIA with pHTN - pt started wearing CPAP about a week ago 2. Morbid obesity 3. Bipolar/PT SD 4. Developmental Delay/Mental Retardation 5. Osteoarthritis 6. Remote H/o polysubstance a buse including etoh, meth, and IVDU 7. GERD 9.Current smoking (on nicotine patch)11. HLD 12. Hypothyroidism Pertinent physical findings: A & O X 4, very lethargic and sleepy this am/pm. Takes awhile to stay awake, but once awake is alert. Some MORGAN, but improving per pt. Weaning oxygen. At 2.5 L. Needs increase to 4L when walking, moving to chair/BR, then can go back to 2.5L. Uses cpap at night. Anasarca. BLE edema 3+. Lasix 40 IV this am with good output (1725 o ut). Has lozano for strict I/O (had been incontinent) LBM 05/06, large, soft, dark brown. 2L fluid restriction. 775cc in on day shift. 355 ml PO (16-19) Heart failure packed and education done today 05/05 Pt continues to be very sleepy this afternoon. Difficult to stay awake more than short per iods to eat, get OOB. Page sent to Dr. Lopez with info at 1500. Orders to follow up on: wean O2 for SaO2 >92%. Keep awake during the day as possible so can sleep at night Last pain assessment/reassessment: denied pain this shift Psych/social issues: Developmentally delayed, has a personal carer, Modesta present during the day. Staying locally at a hotel at night. Pt likes to talk about fishing. Hygiene: Shower 05/06 day shift and linen change Last patient visit (i.e. Falls/Activity/Comfort/Environment/Toileting/Skin): caregiver Jane herrera in room most of the day. Bed alarm on. SCD. Encourage increased mobility. Pt agrees to up to chair for meals and walking. Chair X 2 today. Short walks in room only so far toda y. No skin breakdown. Diaphoretic, linens changed. Anticipated or pending procedures: Plan for PFTs Tuesday Pt Goal: Shower today Outcome of pt goal: Met valuation - Stefania Das RN - 05/06/2013 2:03 PM PDTProblem: Fall/Trauma/Injury Risk (Adult, Obstetrics) Goal: Fall/Trauma/Injury Risk: Absence of Trauma/Injury/Falls Goals: 1. Will have no falls or injuries. 2. Will have increased strength and mobility 3. Adequate diureses. Interventions: 1. Bed alarm, assist with getting out of bed, remind pt to use call light prior to transfer . 2. Encourage mobility in bed, SCD in bed. Pt agrees to up to chair for meals and walking t yolis. Agrees to get up to shower. Encourage adequate nutrition and hydration. 5. Continues on IV lasix, Strict I/O, lozano cath Interventions that worked/didn't work:ok as above My recommendations forward:continue to mobilize. Sleepy during day. Try to keep awake as possible to help with sleep at night Patient Stability:Moderately Stable andoff - Stefania Das RN - 05/06/2013 12:07 PM PDTPrimary focus of stay: Transferred from [facility]. R heart failure, Pulmonary Hypertension, seizure disorder (2 during this hospit al stay, last 05/04) 1 month hx of progressive SOB and fluid retention. UTI (finished cipro) PMH: 1. GLORIA with pHTN - pt started wearing CPAP about a week ago 2. Morbid obesity 3. Bipolar/PT SD 4. Developmental Delay/Mental Retardation 5. Osteoarthritis 6. Remote H/o polysubstance a buse including etoh, meth, and IVDU 7. GERD 9.Current smoking (on nicotine patch)11. HLD 12. Hypothyroidism Pertinent physical findings: A & O X 4, very lethargic and sleepy this am. Takes awhile to stay awake, but once awake is alert. Some MORGAN, but improving per pt. Weaning oxygen. At 2.5 L. Needs increase to 4L when walking, moving to chair/BR, then can go back to 2.5L. Us es cpap at night. Anasarca. BLE edema 3+. Lasix 40 IV this am with good output (1725 out) . Has lozano for strict I/O (had been incontinent) LBM 05/06, large, soft, dark brown. 2L fluid restriction. 775cc in on day shift. Heart failure packed and education done today 05/05 Pt continues to be very sleepy this afternoon. Difficult to stay awake more than short per iods to eat, get OOB. Page sent to Dr. Lopez with info at 1500. Orders to follow up on: wean O2 for SaO2 >92%. Keep awake during the day as possible so can sleep at night Last pain assessment/reassessment: denied pain this shift Psych/social issues: Developmentally delayed, has a personal carer, Modesta present during the day. Staying locally at a hotel at night. Pt likes to talk about fishing. Hygiene: Shower 05/06 day shift and linen change Last patient visit (i.e. Falls/Activity/Comfort/Environment/Toileting/Skin): caregiver Jane herrera in room most of the day. Bed alarm on. SCD. Encourage increased mobility. Pt agrees to up to chair for meals and walking. Chair X 2 today. Short walks in room only so far toda y. No skin breakdown. Diaphoretic, linens changed. Anticipated or pending procedures: Plan for PFTs Tuesday Pt Goal: Shower today Outcome of pt goal: Met lan of Demond - Stefania Das RN - 05/06/2013 12:04 PM PDTProblem: Fall/Trauma/Injury Risk (Adult, Obstetrics) Goal: Fall/Trauma/Injury Risk: Absence of Trauma/Injury/Falls Goals: 1. Will have no falls or injuries. 2. Will have increased strength and mobility 3. Adequate diureses. Interventions: 1. Bed alarm, assist with getting out of bed, remind pt to use call light prior to transfer . 2. Encourage mobility in bed, SCD in bed. Pt agrees to up to chair for meals and walking t yolis. Agrees to get up to shower. Encourage adequate nutrition and hydration. 5. Continues on IV lasix, Strict I/O, lozano cath lan of Care - Jose Aguiar RN - 05/06/2013 12:17 AM PDTProblem: Persistent Pulmonary Hypertension (NICU, P ediatric) Goal: Signs and symptoms of listed potential problems will be absent or manageable (referen ce (Persistent Pulmonary Hypertension (NICU, Pediatric)) CPG) Goals: 1. Will have adequate pain control. 2. Will have no falls or injuries. 3. Manage/prevent further complications from infections. 4. Will have increased strength and endurance. 5. Adequate diureses. Interventions: 1. Assess effectiveness of pain meds given within an hour, offer non pharmacologic approach to pain like heat or cold packs, assist with repositioning for comfort. 2. Bed alarm, assist with getting out of bed, remind pt to use call light prior to transfer . 3. Encourage proper , frequent hand hygiene, monitor wounds for any discharge, redness and report to ALDEN CANALES per protocol. 4. Encourage mobility in bed, up to the chair as tolerated, encourage adequate nutrition an d hydration. 5. Strict I/O Magalie landa - Flakita Cassidy RN - 05/05/2013 7:22 AM PDTPrimary focus of stay: Pulmonary Hypert ension - transferred from [facility], MR/DD, seizure d/o, and copd in the ED with 1 month of progressive sob and fluid retention. Pt is in need of further workup with no capaci ty at the current hospital. Pt seen by PCP this am who referred pt to fishing captain who perfo rmed an echo and found pulmonary htn. Pt then sent to ED. PMH: 1. GLORIA with pHTN - pt started wearing CPAP about a week ago 2. Morbid obesity 3. Bipolar/PTSD 4. Developmental Delay/Mental Retardation 5. Osteoarthritis 6. Remote H/o polysubstance abuse including etoh, meth, and IVDU 7. GERD 8. Vitamin D deficiency 9. Current smoking 10. Seizure disorder 11. HLD 12. Hypothyroidism Pertinent physical findings: O2 @ 2L/min per NC. dyspnea on exertion, orthopnea; biPAP wit h oxygen during nights. Edema 2-3+ throughout. 04/513: At 1704 Pt hada 2nd seizure. Had significant hand cramps 05/03 on nocMD evaluated , treated with hot packs. EEG and TTE done on previous shift. Today, SaO2 91 % on room air, patient took off oxygen. O2 decreased to 2L/min per NC and pl aced back on patient. Telemetry discontinued. Incontinent to urine, bed and attends soaked this morning. Showered with stand by assist. C are givers from [facility] at bedside. Inhalers by bedside. Oxygen at 2.5L/min per NC(SaO2 > 92%). Oxygen saturation <92 with 2L/min per NC. Heart failure packed and education done today. Orders to follow up on: wean off O2 for SaO2 >92%. Last pain assessment/reassessment: denied pain, but gave one tab tylenol for comfort this m orning. Psych/social issues: Developmentally delayed, has a personal carer, Mdoesta present during the day. Patient likes to fish very much. Her best tip for bait for trout is raw shrimp and chic farhad gizzards and for crawdads, hot dogs. She also likes to talk about fishing. Last patient visit (i.e. Falls/Activity/Comfort/Environment/Toileting/Skin): 1440, c aregiver in room. Bed alarm on. Attends changed. Anticipated or pending procedures: andoff - Jose Aguiar RN - 05/05/2013 6:[address] ay: Pulmonary Hypertension - transferred from [facility], MR/DD, seizure d/o, and co pd in the ED with 1 month of progressive sob and fluid retention. Pt is in need of further w orkup with no capacity at the current hospital. Pt seen by PCP this am who referred pt to ca rdiologist who performed an echo and found pulmonary htn. Pt then sent to ED. PMH: 1. GLORIA with pHTN - pt started wearing CPAP about a week ago 2. Morbid obesity 3. Bipolar/PTSD 4. Developmental Delay/Mental Retardation 5. Osteoarthritis 6. Remote H/o polysubstance abuse including etoh, meth, and IVDU 7. GERD 8. Vitamin D deficiency 9. Current smoking 10. Seizure disorder 11. HLD 12. Hypothyroidism Pertinent physical findings: 4 L nasal cannula; dyspnea on exertion, orthopnea; CPAP with O 2 bleed at night; 2-3+ edema throughout. -05/04 1704 Pt had 2nd seizure lasting. Had significant hand cramps 05/03 MD mingo evaluated, treated with hot packs. Had EEG and TTE today. Orders to follow up on: Last pain assessment/reassessment: No pain Psych/social issues: Developmentally delayed, has a personal carer, Tila - she is present duri ng the day. Last patient visit (i.e. Falls/Activity/Comfort/Environment/Toileting/Skin): resting in bed with caregiver in room. Anticipated or pending procedures:Electronically signed by Jose Aguiar RN at 05/05 6:16 AM PDTPlan of Care - Jose Aguiar RN - 05/04/2013 8:36 PM PDTProblem: Persistent Pulmonary Hypertension (NICU, Pediatric) Goal: Signs and symptoms of listed potential problems will be absent or manageable (referen ce (Persistent Pulmonary Hypertension (NICU, Pediatric)) CPG) Goals: 1. Will have adequate pain control. 2. Will have no falls or injuries. 3. Manage/prevent further complications from infections. 4. Will have increased strength and endurance. 5. Adequate diureses. Interventions: 1. Assess effectiveness of pain meds given within an hour, offer non pharmacologic approach to pain like heat or cold packs, assist with repositioning for comfort. 2. Bed alarm, assist with getting out of bed, remind pt to use call light prior to transfer . 3. Encourage proper , frequent hand hygiene, monitor wounds for any discharge, redness and report to , VS per protocol. 4. Encourage mobility in bed, up to the chair as tolerated, encourage adequate nutrition an d hydration. 5. Strict I/O i gnificant Event - Mandy Caruso RN - 05/04/2013 5:52 PM PDTSummary: Unit: 7C - MED (05/04/131744) Room #: 2 (05/04/131744) Time Called: 1708 (05/04/131744) Time Ended: 173 (05/04/131744) Recommendations / Interventions: Primary Reason for Call: Seizure (05/04/131744) Other Reason for Call: Neuro Change;Consultation (05/04/131744) Interventions: NIBP Monitoring;SpO2 Monitoring (05/04/131744) Situation: Situation: Called to bedside for patient who was sitting up in chair and had a witnessed se izure by both the nurse and family member. Per report the patient's eyes rolled back into he r head and she became unresponsive. Per report this seizure lasted longer than her seizure yesterday. Of note the patient's dilantin level was low and the nurse was paging the physic ians. CANALES at bedside and assessed patient. After seizure patient was not able to state her na me, her can technician were weak bilaterally and she needed a deandre lift back to bed. The patient be came tearful and stated she did not know what happened. The patient's vital signs were stab le and per the telecommunicator supervisor she was in NSR in the 60's and had been for some time. No ectopy or events noted. The patient returned back to baseline and nursing felt comfident with the pa tient's condition at the time. (05/04/131744) Background: Background: See H and P (05/04/131744) Outcome/Personnel: Outcome: Stayed in room (05/04/131744) Physician Notified: Yes (05/04/131744) Caller: Jim RN (05/04/131744) ignificant Event - Eliel son, Bernie Rodriguez RN - 05/04/2013 5:51 PM PDTWas present with pt at 1704 and witnessed event. P t took deep inhalation of her inhaler while seated in chair. Eyes rolled back and pt not res ponding verbally, then approximately three minutes later responding verbally but unable to s hdez her name. COMMERCIAL INTELLIGENCE MANAGER called, notified, remained with pt. VS remained stable, pt remained in sinus rhythm per emergency dept tech. Lift team called and pt put back to bed via deandre. Pt now reporting frontal headache 4/10, given tylenol, will administer depakote when available. P t now oriented to person , place and April 2013,pPt drowsy resting in bed will check on frequ ently. Private caregiver also at bedside and instructed to report s/s of seizure. Electronic ally signed by Bernie Vora RN at 05/04/2013 6:01 PM PDTHandoff - Bernie Vora R N - 05/04/2013 2:41 PM PDTPrimary focus of stay: Pulmonary Hypertension - transferred from [facility], MR/DD, seizure d/o, and copd in the ED with 1 month of progressive sob a nd fluid retention. Pt is in need of further workup with no capacity at the current hospital . Pt seen by PCP this am who referred pt to fishing captain who performed an echo and found pul monary htn. Pt then sent to ED. PMH: 1. GLORIA with pHTN - pt started wearing CPAP about a week ago 2. Morbid obesity 3. Bipolar/PTSD 4. Developmental Delay/Mental Retardation 5. Osteoarthritis 6. Remote H/o polysubstance abuse including etoh, meth, and IVDU 7. GERD 8. Vitamin D deficiency 9. Current smoking 10. Seizure disorder 11. HLD 12. Hypothyroidism Pertinent physical findings: 4 L nasal cannula; dyspnea on exertion, orthopnea; CPAP with O 2 bleed at night; 2-3+ edema throughout. Today 05/04 pt had what appeared to be a seizure l asting approximately 3 minutes in which her eyes rolled back and he she was unresponsive see also significant event note.1704 Pt had seizure 7/ lasting 20-30 seconds no injury to pat ient. Had significant hand cramps / MD mingo evaluated, treated with hot packs. Had EEG and TTE today. Orders to follow up on: Last pain assessment/reassessment: No pain Psych/social issues: Developmentally delayed, has a personal carer, Tila - she is present cayla the day. Last patient visit (i.e. Falls/Activity/Comfort/Environment/Toileting/Skin): resting in bed with caregiver in room. Anticipated or pending procedures: 13 6:48 PM PDTPlan of Care - Jazmyn Mcginnis RD - 05/04/2013 1:31 PM PDTProblem: Nutrition In terventions Intervention: Food and nutrient distribution type or amount -Rec 2gm Na diet -Bowel regimen prn Intervention: Nutrition Education Pt developmentally delayed. Lives in skilled nursing. Caregiver is Dominique. Spoke with Dominique and pt today to offer low sodium diet education. Pt eating lunch (includes mashed potatoes with gravy, brownie, watermelon, plus some other items). Dominique states that skilled nursing provides all meals for pt. There is one meal served with little control over choices. Meals are pre-p lated. They do try to accommodate therapeutic diets but, with limited resources, are not alw ays able to do so. Pt states that she does not add any salt to her food. This RD suggested t hat pt eat smaller portions (leave some of the food on plate) of high sodium foods and attem pted to list some of those foods. Pt eating lunch and only occasionally looked up to engage in discussion. Made a "sour" face when breakfast meats and cheese were listed. Caregiver enc ouraged pt to comply with suggestions and pointed out that another occupant was able to lose some wt when they started watching portions and salt intake. Provided CG with detailed writ ten education ([employer] "Heart Failure Nutrition Therapy" packet), including list of high sodium foods, shopping and cooking tips, and label reading informati on. Expect fair to moderate compliance. Following Jazmyn Mcginnis RD Pgr #[id number] Comments: Jqww-txq-[id number]-related knowledge deficit r/t lack of prior exposure to nutrition-relate d information and impaired cognitive ability (developmentally delayed) evidenced by weight g ain, pt eating high sodium foods. Keo Lane is a 47 y.o. female admitted with worsening edema, SOB, pulmonary HTN, had sei zure after admission (05/03) H/o: tobacco use, morbid obesity, GLORIA, COPD, bipolar/PTSD, developmental delay, seizure d/o , HLD, R heart failure Regular diet (put MD sticky note in to request low sodium) with 95-100% PO Large BM 05/04 Elevated LFTs, ammonia Vit C 500 mg BID, cholecalciferol, cipro, colace, Fe sulfate, levothyroxine, dilantin TID, lasix 59", Wt 106.9kg (05/02, bed), IBW 44.3kg, AdjBW 60kg, BMI 47.6 *per MD notes, CG vs pt reported ~20# wt gain over the last month to months but uncertain o f exact wt Est needs using obesity guidelines: 6414-3138 kcal (18-23/kg AdjBW), 90g pro (2g/kg IBW) Moraima - Dario Aguiar RN - 05/04/2013 6:03 AM PDTPrimary focus of stay: Pulmonary Hypertension - transfe rred from [facility], MR/DD, seizure d/o, and copd in the ED with 1 month of progres sive sob and fluid retention. Pt is in need of further workup with [facility]. Pt seen by PCP this am who referred pt to fishing captain who performed an echo and found pulmonary htn. Pt then sent to ED. PMH: 1. GLORIA with pHTN - pt started wearing CPAP about a week ago 2. Morbid obesity 3. Bipolar/PTSD 4. Developmental Delay/Mental Retardation 5. Osteoarthritis 6. Remote H/o polysubstance abuse including etoh, meth, and IVDU 7. GERD 8. Vitamin D deficiency 9. Current smoking 10. Seizure disorder 11. HLD 12. Hypothyroidism Patient goal of the day: sleep Outcome of goal of the day: met Pertinent physical findings: 6 L nasal cannula; dyspnea on excertion; CPAP with O2 bleed at night; 2-3+ edema throughout. Pt had seizure 05/03 lasting 20-30 seconds no injury to patient . Had significant hand cramps 05/03 MD mingo evaluated, treated with hot packs. Orders to follow up on: Labs (watch for recent Ca level) Continue to diurese Last pain assessment/reassessment: No pain Psych/social issues: Developmentally delayed, has a personal carer, Tila - she is present duri ng the day. Last patient visit (i.e. Falls/Activity/Comfort/Environment/Toileting/Skin): 600 resting in bed with caregiver in room. Anticipated or pending procedures: Will need TTE and EEG lan of Care - Jose Aguiar RN - 05/04/2013 1:20 AM PDTProblem: Persistent Pulmonary Hypertension (NICU, Pediatric) Goal: Signs and symptoms of listed potential problems will be absent or manageable (referen ce (Persistent Pulmonary Hypertension (NICU, Pediatric)) CPG) Goals: 1. Will have adequate pain control. 2. Will have no falls or injuries. 3. Manage/prevent further complications from infections. 4. Will have increased strength and endurance. 5. Adequate diureses. Interventions: 1. Assess effectiveness of pain meds given within an hour, offer non pharmacologic approach to pain like heat or cold packs, assist with repositioning for comfort. 2. Bed alarm, assist with getting out of bed, remind pt to use call light prior to transfer . 3. Encourage proper , frequent hand hygiene, monitor wounds for any discharge, redness and report to , VS per protocol. 4. Encourage mobility in bed, up to the chair as tolerated, encourage adequate nutrition an d hydration. 5. Strict I/O andoff - Teresa gaona, Eufemia Sutherland RN - 05/03/2013 7:11 PM PDT..Nursing Handoff Report Primary focus of stay: Pulmonary Hypertension- transferred from [facility] 47 yo f with bipolar d/o, hypothyroidism, MR/DD and reported htn, seizure d/o, and copd in the ED with 1 month of progressive sob and fluid retention. Pt is in need of further workup with no capacity at the current hospital. Pt seen by PCP this am who referred pt to cardiolo gist who performed an echo and found pulmonary htn. Pt then sent to ED. PMH 1. GLORIA with pHTN - pt started wearing CPAP about a week ago 2. Morbid obesity 3. Bipolar/PTSD 4. Developmental Delay/Mental Retardation 5. Osteoarthritis 6. Remote H/o polysubstance abuse including etoh, meth, and IVDU 7. GERD 8. Vitamin D deficiency 9. Current smoking 10. Seizure disorder 11. HLD 12. Hypothyroidism Pertinent physical findings: 5-6 L nasal cannula; dyspnea on excertion; CPAP with O2 bleed at night; 2-3+ edema throughout. Pt had seizure today (7-4) lasting 20-30 seconds no injury to patient. She was mildly confused after. Lozano removed at 1730 Pt still needs to void, p t states she is continent at home and will call when she needs to go. Orders to follow up on: Labs (watch for recent Ca level)Continue to diurese Last pain assessment/reassessment: Cramping in hands- MD aware gave tylenol, possibly low C a? Watch for recent labs. Psych/social issues: Developmentally delayed, has a personal carer, Tila- she is present demarco gaona the day. Last patient visit (i.e. Falls/Activity/Comfort/Environment/Toileting/Skin): 1900- resting in bed with caregiver in room. Anticipated or pending procedures: Will need TTE and EEG valuation - Rola Gonzalez RN - 05/03/2013 5:47 AM PDT..Problem: Persistent Pulmonary Hypertension (NICU, Pediatric) Goal: Signs and symptoms of listed potential problems will be absent or manageable (referen ce (Persistent Pulmonary Hypertension (NICU, Pediatric)) CPG) Goals: 1. Will have adequate pain control. 2. Will have no falls or injuries. 3. Manage/prevent further complications from infections. 4. Will have increased strength and endurance. 5. Adequate diureses. Interventions: 1. Assess effectiveness of pain meds given within an hour, offer non pharmacologic approach to pain like heat or cold packs, assist with repositioning for comfort. 2. Bed alarm, assist with getting out of bed, remind pt to use call light prior to transfer . 3. Encourage proper , frequent hand hygiene, monitor wounds for any discharge, redness and report to MD, VS per protocol. 4. Encourage mobility in bed, up to the chair as tolerated, encourage adequate nutrition an d hydration. 5. Strict I/O Interventions that worked/didn't work The above interventions were effective. My recommendations forward:Continue with the above interventions. Patient Stability:Moderately Unstable lan of Care - Rola Gonzalez RN - 05/03/2013 5:47 AM PDTProblem: Persistent Pulmonary Hypertension (NICU, Pedia tric) Goal: Signs and symptoms of listed potential problems will be absent or manageable (referromi ce (Persistent Pulmonary Hypertension (NICU, Pediatric)) CPG) Goals: 1. Will have adequate pain control. 2. Will have no falls or injuries. 3. Manage/prevent further complications from infections. 4. Will have increased strength and endurance. 5. Adequate diureses. Interventions: 1. Assess effectiveness of pain meds given within an hour, offer non pharmacologic approach to pain like heat or cold packs, assist with repositioning for comfort. 2. Bed alarm, assist with getting out of bed, remind pt to use call light prior to transfer . 3. Encourage proper , frequent hand hygiene, monitor wounds for any discharge, redness and report to MD, VS per protocol. 4. Encourage mobility in bed, up to the chair as tolerated, encourage adequate nutrition an d hydration. 5. Strict I/O andoff - Fede Gonzalez RN - 05/03/2013 12:57 AM PDT..Nursing Handoff Report Primary focus of stay: Pulmonary Hypertension- transferred from [facility] 47 yo f with bipolar d/o, hypothyroidism, MR/DD and reported htn, seizure d/o, and copd in the ED with 1 month of progressive sob and fluid retention. Pt is in need of further workup with no capacity at the current hospital. Pt seen by PCP this am who referred pt to cardiolo [facility] who performed an echo and found pulmonary htn. Pt then sent to ED. PMH 1. GLORIA with pHTN - pt started wearing CPAP about a week ago 2. Morbid obesity 3. Bipolar/PTSD 4. Developmental Delay/Mental Retardation 5. Osteoarthritis 6. Remote H/o polysubstance abuse including etoh, meth, and IVDU 7. GERD 8. Vitamin D deficiency 9. Current smoking 10. Seizure disorder 11. HLD 12. Hypothyroidism EKG and CXR completed Pertinent physical findings: 5-6 L nasal cannula; dyspnea on excertion; CPAP with O2 bleed at night; PIV SL; diminished lung sounds. 2-3+ edema throughout. Lungs diminished in the bas es. Orders to follow up on: Last pain assessment/reassessment: denies pain. Psych/social issues: Developmentally delayed, has a personal carer, Tila- she is present [facility] the day. Last patient visit (i.e. Falls/Activity/Comfort/Environment/Toileting/Skin): Lozano cath Anticipated or pending procedures: [facility] - 05/02/2013 8:29 PM PDTAmb report: C3, Pulmonary edema, issue keeping blood pressure up, BP 70/p, ETA 5 Advised 7C charge. [facility] - 05/02/2013 2:44 PM PDTPaged grp 18 ransfer Note - Damián Cervantes MD - 05/02/2013 2:34 PM PDTI [facility]AT[facility]IC[facility] TRANSFER [facility] NOTE General Medicine Charge Aide Attending Author; DAMIÁN CERVANTES MD PCP: No primary provider on file. No primary physician on file. Phone: None FAX: None REFERRING MD: Dr. Bowen (ED MD [facility]) REFERRING SITE: [facility] REASON/GOAL OF TRANSFER: Evaluation and possible treatment for pulmonary htn FLOOR OR ICU REQUEST: floor with tele HPI/PMH/Exam: 47 yo f with bipolar d/o, hypothyroidism, MR/DD and reported htn, seizure d/o, and copd in the ED with 1 month of progressive sob and fluid retention. Pt is in need of further workup with no capacity at the current hospital. Pt seen by PCP this am who referred pt to cardio logist who performed an echo and found pulmonary htn. Pt then sent to ED. PMHX reported: hypothyroidism, seizure disorder, DD, copd, htn, bipolar Meds: combivent, valproic acid, gabapentin, thyroxine, omeprazole, prozac, dilantin, risper idone, spironolactone, simvastatin STUDIES: Lab:cbc, chem and trop normal; bnp 220, d dimer 307(normal there is <230), abg on 2l 7.44/3 3 Imaging: none ECG/Echo/Other: ekg with "non specific st changes"; echo reported as pulm htn TRANSFER STABILITY: Rhythm: normal Vitals: 123/63, 81, 20 Unstable Labs none OTHER ISOLATION/CARE ISSUES: Telemetry: yes DISPOSITION: Stable for floor with tele IDENTIFIED PROBLEM LIST: 1. Volume overload-may be pulmonary htn based on report; will need formal echo here with fu rther eval as necessitated by findings 2. Hypothyroidism 3. Seizure disorder 4. Developmental delay 5. Bipolar disorder DAMIÁN CERVANTES MD development team lead Division of Hospital Medicine Department of Medicine [facility] [address] [place] [address] trium Health [facility] - Xiang May - 05/02/2013 2:28 PM PDTConnected ref to Dr. Brody. 47 yof, worsening sob, fluid ret ention, is on O2, breathing worse with minimal exertion, echo showed severe primary pulmonar y hypertension, cardiology ref recommended xferring pt to a place where a R heart cath and p ulmonary interventions are available. Sating in low 90's high 80's, pH 7.44, co2 33, pO2 65, BP 123/63, HR 81, RR [address] changes in lateral leads Per Dr. Brody, pt should probably be accepted by medicine service. Paged Dr. Cervantes (english) and connected to ref. Accepted to any adult english with telemetry (indirect is fine) by Dr. CervantesElectronically sig ebenezer by Ben May at 05/02/2013 2:41 PM PDTdocumented in this encounter Plan of [...] | + +--------+ + + + | HIV AB/AG SCREENING | Routin | 05/10/2013 | | Results for this | | W/REFLEX TO CONFIRM | e | 7:36 AM | | [...] AT,GLUC,CA,AST,ALT,B | | | | | | SEAR TOTAL,ALK | | | | | | [...] | + +--------+ + + + | UA DIPSTICK ONLY | Routin | 05/03/2013 | [...] [facility] | [address] | [place] [address] | | | SERVICES, CORE | PARK [...] [facility] | [address] | [place] [address] | | | SERVICES, CORE | PARK [...] | | | LABORATORY | | | ECU[place]OREAN | | | SERVICES, | | | [...] the MDRD equation recommended by the | [facility] | | National Kidney Disease Education [...] [facility] | [address] | [place] [address] | | | SERVICES, CORE | PARK [...] [facility] | [address] | [place] [address] | | | SERVICES, CORE | PARK [...] | + + + + + | [facility] | [address] | [place] [address] | | | JULIETA, [place] | [address] [...] | + + + + + | [facility] | [address] | [place] [address] | | | SERVICES, CORE | NADJA [...] SERVICES, | | | | | | [place] | | + +-------+ + + + + + | Specimen | + + | Blood - Blood | + + + + + + + | Performing | Address | City/State/Zipcode | Phone Number | | Organization | | | | + + + + + | [facility] | [address] | [place] [address] | | | SERVICES, [place] | [address] | | | + [...] | | | LABORATORY | | | ECU[place]OREAN | | | SERVICES, | | | [...] | + + + + + | [facility] | [address] | [place] [address] | | | SERVICES, [facility] | [address] | | | + [...] [facility] | [address] | [place] [address] | | | SERVICES, CORE | PARK [...] [facility] | [address] | [place] [address] | | | SERVICES, CORE | PARK [...] | | | LABORATORY | | | [place]OREAN | | | SERVICES, | | | [...] | + + + + + | [facility] | [address] | [place] [address] | | | SERVICES, [facility] | [address] | | | + [...] by | | | | | | [employer],[address] | | | | | | Lázaro Carter, [facility] [place] | | | | | | [address] | | | | | | [phone].Xetal. | | | | | | Zane [...] [facility] | [address] | [place], [place] | | | [facility] | | [address] | | + + + + + [...] | + + + + + | [facility] - | [address] | [place] [address] | | | [place] | | | | + + + [...] + | [facility] | [address] | [place] [address] | | | SERVICES, SPECIAL | PARK [...] | + + + + + | [facility] | [address] | [place] [address] | | | JULIETA, [place] | [address] | | | + [...] | + + + + + | [facility] | [address] | [place] [address] | | | SERVICES, CORE | NADJA [...] | | | LABORATORY | | | ECU[place]OREAN | | | SERVICES, | | | [...] [facility] | [address] | [place] [address] | | | SERVICES, CORE | NADJA [...] | + + + + + | [facility] | [address] [facility] | [place] [address] | | | SERVICES, CORE | NADJA [...] | | | LABORATORY | | | [place]OREAN | | | SERVICES, | | | [...] [facility] | [address] | [place] [address] | | | SERVICES, CORE | PARK [...] | + + + + + | [facility] | [address] | [place] [address] | | | SERVICES, [place] | [address] [...] + + + + + + | ZOD28-63% | 0.75 | 2.52 L/sec | [facility] | | | PRE | | | SPECIAL | | | | | | DIAGNOSTICS | | | | | | - | | | | | | PULMONARY | | | | | | FUNCTION | | + + + + + + | ZCA83-04% | 30 | % | [facility] | [...] + + | PULMONARY | Name: KEO LANE | | [facility] | | | INTERPRETAT | ID# [id number] | | SPECIAL | | | ION | Date: | | DIAGNOSTICS | | | | 05/07/13 Age: 47 | | - | | | | Gender: | | PULMONARY | | | | Female | | FUNCTION | | | | Race: | | | | | | Height(in):Physician: | | | | | | [employer] | | | | | | Copier And Printer Field Technician: | | | | | | TONI Beaver | | | | | | Diagnosis: [...] | | | | | | Order# [id number] | | | | | | | [...] | | | | | | 68 [id number]% | | | | | | L/sec 2.52 | | | | | | 0.75 | | | | | | [id number] L/sec | | | | | | | | | | | | 0.75PEF | | | | | | L/sec 6.04 | | | | | | 2.67 14KZT63% | | | | | | L/sec [...] | | | | | Page 1Name: AMRIK, | | | | | | KEO ID: | | | | | | [id number] | | | | | | Date: [...] | + + | Xuan Palumbo - 05/08/2013 9:18 AM PDT | + + + + + + + | Performing | Address | City/State/Zipcode | Phone Number | | Organization | | | | + + + + + | [facility] | [address] | [place], [place] | | | DIAGNOSTICS - | [address] | [address] | | | PULMONARY FUNCTION | | [...] [facility] | [address] | [place] [address] | | | SERVICES, CORE | PARK [...] | + + + + + | [facility] | [address] | [place] [address] | | | SERVICES, CORE | NADJA [...] | | | LABORATORY | | | ECU[place]OREAN | | | SERVICES, | | | [...] | + + + + + | [facility] | [address] | [place] [address] | | | SERVICES, CORE | PARK [...] | + + + + + | [facility] | [address] | [place] [address] | | | SERVICES, [place] | [address] [...] | + + + + + | [facility] | [address] | [place] [address] | | | JULIETA, [place] | [address] [...] [facility] | [address] | [place] [address] | | | SERVICES, [place] | [address] | | | + [...] | | | LABORATORY | | | ECU[place]OREAN | | | SERVICES, | | | [...] | + + + + + | [facility] | [address] | [place] [address] | | | [facility], [facility] | [address] | | | + [...] | + + + + + | [facility] | [address] | [place] [address] | | | SERVICES, CORE | PARK [...] | + + + + + | [facility] | [address] | [place] [address] | | | SERVICES, CORE | PARK [...] | + + + + + | [facility] | [address] | [place] [address] | | | SERVICES, CORE | NADJA [...] | + + + + + | [facility] | [address] | [place] [address] | | | SERVICES, CORE | [address] [...] | | | LABORATORY | | | ECU[place]OREAN | | | SERVICES, | | | [...] | + + + + + | [facility] | [address] [facility] | [place] [address] | | | SERVICES, [place] | [address] [...] | 60 - 99 mg/dL | [facility] - | | | GLUCOSE, | | [...] + + + + + | [facility] | [address] | [place], [place] | | | ANNA POINT OF CARE | [address] | [address] | | | TESTS | | | [...] + + | [facility] | [address] [facility] | [place] [address] | | | SERVICES, CORE | PARK [...] | + + + + + | [facility] | [address] | [place] [address] | | | SERVICES, CORE | [address]JA [...] [facility] | [address] | [place] [address] | | | SERVICES, CORE | PARK [...] [facility] | [address] | [place] [address] | | | SERVICES, CORE | PARK [...] | | | LABORATORY | | | ECU[place]OREAN | | | SERVICES, | | | [...] | + + + + + | [facility] | [address] | [place] [address] | | | [facility], [facility] | [address] | | | + + + + + EEG ROUTINE (05/04/2013) + + + | Narrative | Performed At | + + + | Patient Name: Keo Lane Date of : 1965 Medical | [facility] - | | Record Number: [id number] Date of Test: 05/04/2013 Place of Service: | [facility], | | [facility] [phone] [facility] Department: EEG [facility] - [phone] | POINT OF CARE | | ROUTINE EEG Indication: Keo Lane is a 47 y.o. woman with a [...] tongue biting or bowel/bladder incontinence (pt had lozano in at | | | the time). [...] Modifier: GC - Resident Present Suggested CPT: 89318 - EEG Routine | | | Awake Only Suggested Dx: 780.39 - Convulsions | | + + + + + + + + | Performing | Address | City/State/Zipcode | Phone Number | | Organization | | | | + + + + + | [facility] | [address] | [place], [place] | | | [facility] | [address] | [address] | | | TESTS | | | [...] | Procedure Note | + + | [place], Faculty - 05/04/2013 5:58 PM PDT | + [...] | + + + + + | [facility] | [address] | [place] [address] | | | SERVICES, CORE | NADJA [...] | | | LABORATORY | | | ECUADOREAN | | | SERVICES, | | | [...] | + + + + + | [facility] | [address] | [place] [address] | | | SERVICES, CORE | NADJA [...] | [facility] | | Test performed by: [facility] [address] | REFERENCE LAB | | [place] [address] | | + + + + + [...] | + + + + + | [facility] | [address] | [place] [address] | | | SERVICES, CORE | NADJA [...] | | | Final CULTURE | | [place] | | | | RESULT:No growth (<1000 [...] + | [facility] - | [address] | [place] [address] | | | [place] | | | [...] | 1.023 | 1.005 - 1.030 | [facility] | | | GRAVITY | | | [...] | + + + + + | [facility] | [address] | [place] [address] | | | SERVICES, CORE | NADJA [...] | + +---------+ + + + | NON-CINDI | Clint (A) | None /hpf | [...] + | [facility] | [address] | [place] [address] | | | SERVICES, CORE | PARK [...] | | LABORATORY | | | SERVICES, CORE | + + + + + + + + | Performing | Address | City/State/Zipcode | Phone Number | | Organization | | | | + + + + + | [facility] | [address] | [place] [address] | | | SERVICES, CORE | [address] | | | + + + + + CBC (05/03/2013 7:35 AM PDT) + + + [...] [facility] | [address] | [place] [address] | | | SERVICES, CORE | PARK [...] | | | LABORATORY | | | ECU[place]OREAN | | | SERVICES, | | | [...] | + + + + + | [facility] | [address] | [place] [address] | | | SERVICES, [facility] | [address] | | | + [...] | + + + + + | [facility] - | [address] | [place] [address] | | | [place] | | | [...] + | [facility] - | [address] | [place] [address] | | | [place] | | | | + + + [...] by | | | | | | TELLO HUMPHRIES | | | | | | ([id number]) on 05/24/2013 | | | | | | 9:44:07 PM | | | | + + + + + + + + | Specimen | + + | | + + + + + | Narrative | Performed At | + + + | Please click | [facility] | | on view image for the detailed interpretation from [employer] results. | CARDIOLOGY | + + + + + | Procedure Note | + + | Interface, Cardiology Results - 05/24/2013 9:44 PM PDT Please click on view image | | for the detailed interpretation from [employer] results. | + + + + + + + | Performing | Address | City/State/Zipcode | Phone Number | | Organization | | | | + + + + + | [facility] | [address] | [place], [place] | | | CARDIOLOGY | [address] | [address] | | + + + + + [...] by | | | | | | TELOL HUMPHRIES | | | | | | ([id number]) on 05/04/2013 | | | | | | 11:36:09 AM | | | | + + + + + + + + | Specimen | + + | | + + + + + | Narrative | Performed At | + + + | Please click | [facility] | | on view image for the detailed interpretation from [facility] results. | CARDIOLOGY | + + + + + | Procedure Note | + + | Interface, Cardiology Results - 05/04/2013 11:36 AM PDT Please click on view image | | for the detailed interpretation from [employer] results. | + + + + + + + | Performing | Address | City/State/Zipcode | Phone Number | | Organization | | | | + + + + + | [facility] | [address] | [place], [place] | | | CARDIOLOGY | [address] | [address] | | + + + + + [...] Final/Electronically | | | | | | nerissa / KIMBERLEE BURGESS | | | | | | 05/03/2013 9:25 AM | | | | + + + + + + + + | Specimen | + + | | + + + +---------+ + + | Performing | Address | City/State/Zipcode | Phone Number | | Organization | | | | + +---------+ + + | [facility] | | | | | [...] [facility] | [address] | [place] [address] | | | SERVICES, CORE | PARK [...] 0.7 U/mL | LABORATORY | | | [place] | + + + + + + + + | Performing | Address | City/State/Zipcode | Phone Number | | Organization | | | | + + + + + | [facility] | [address] | [place] [address] | | | SERVICES, [place] | [address] [...] mech. valves (2.5 - 3.5) INR | [place] | + + + + + + + + | Performing | Address | City/State/Zipcode | Phone Number | | Organization | | | | + + + + + | [facility] | [address] | [place] [address] | | | [place] | [address] [...] | | | LABORATORY | | | ECUADOREAN | | | SERVICES, | | | [...] | + + + + + | [facility] | [address] [facility] | [place] [address] | | | SERVICES, [facility] | [address] | | | + [...] | +---+---+ + +-------+ +---------+---+---+ | albuterol (allan GU, | Given | 05/12/20 | 2 puffs [...] | | | | | modification) on Tue05/03/13 at | | | | | | [...] on Tue05/03/13 at 0900, Until | | | | [...] | | | | First dose on [facility] 05/03/13 at 0900, | | | [...] PDT | | | | | on [facility] 05/03/13 at 1415, Last dose | | | | | | | on [facility] 05/05/13 at 2100 | | | | [...] +---+---+ + +-------+ +--------+---+---+ | divalproex DR amaris GARCIA) | Given | 05/04/20 | 500 mg | | | | tablet 500 mg 500 mg, oral, | | 13 9:26 | | | | | DAILY, First dose on [facility] 05/03/13 | | AM PDT | | | | | at 0900, Until Discontinued | | | | | | + +-------+ +--------+---+---+ +-------+ +--------+---+---+ | Given | 05/03/20 | 500 mg | | | | | 13 9:11 | | | | | | AM PDT | | | | +-------+ +--------+---+---+ +---+---+ | | | +---+---+ + +-------+ +--------+---+---+ | divalproex DR amaris GARCIA) | Given | 05/04/20 | 500 mg | | | | tablet 500 mg 500 mg, oral, | | 13 5:39 | | | | | ONCE, 1 dose, Tue05/04/13 at 1800 | | PM PDT | | | | + +-------+ +--------+---+---+ +---+---+ | | | +---+---+ + +-------+ +--------+---+---+ | divalproex DR amaris GARCIA) | Given | 05/12/20 | 500 mg | | | | tablet 500 mg 500 mg, oral, | | 13 8:57 | | | | | THREE TIMES DAILY, First dose on | | AM PDT | | | | | Tue05/09/13 at 0900, Until | | | | [...] | | | DAILY, First dose on [facility] 05/03/13 | | AM PDT | | | [...] +---------+ +-------+---+---+ | furosemide (aka LASIX) | | 05/06/20 | 40 mg | | | | injection 40 mg 40 mg, | | 13 11:06 | | | | | intravenous, ONCE, 1 dose, Sun | | AM PDT | | | | | 05/06/13 at 1015 | | | | | | + +---------+ +-------+---+---+ +---+---+ | | | +---+---+ + +---------+ +-------+---+---+ | furosemide (aka LASIX) | | 05/12/20 | 40 mg | | | | injection 40 mg 40 mg, | | 13 8:59 | | | | | intravenous, TWICE DAILY | | AM PDT | | | | | (DIURETIC), First dose on Mon | | | | | | | [...] | | 8 HOURS, First dose on [facility] 05/03/13 | | AM PDT | | | [...] 8:57 | | | | | on [facility] 05/03/13 at 0900, Until | | AM [...] | | | | First dose on [facility] 05/03/13 at | | AM PDT | [...] AM PDT | | | | | [facility] 05/03/13 at 0900, Until | | [...] ONCE, 1 dose, [facility] 05/10/13 | | AM PDT | | [...] | | | oral, ONCE, 1 dose, [facility] 05/10/13 | | PM PDT | | [...] | | oral, DAILY, First dose on Fri | | AM PDT | | [...] | | | BEDTIME, First dose on Tue05/03/13 | | PM [...]
--- OUTSIDE RECORDS SUMMARY | ~2020-07-11 | XMS | Encounter Summary ---
Demographics + + + | Address | [address] | | | [place] [address] | + + + | Home Phone [...] Organization | [facility] | | | and [place] | + + + | Address | Unknown | + + + | Phone | Unavailable | + + + Support + + + + + | Name | Relationship | Address | Phone | + + + + + | [employer] | ECON | [phone] | | | | | Unknown | | + + + + + Care Team Providers + +------+ + | Care Ferry Terminal Supervisor Name | Role | Phone | [...] Farrar MD | | | | | [place], | | | | | | [place] [address] | | | | | | [phone] | | | +--------+--------+ + + + [...] | | | | | [place] [address] | | | | | | [phone] | | | | | | | | +--------+ + + + + | 07/23/ | Office | Pulmonology | Helen Astudillo | | 2019 | Visit | | MD [address] | | | | | | [address] | | | | | | [place] [address] | | | | | | [phone] | | | | | | | | +--------+ + + + + documented as of this encounter Visit Diagnoses Not on filedocumented in this encounter"
--- OUTSIDE RECORDS SUMMARY | ~2020-07-11 | XMS | Encounter Summary ---
Demographics + + + | Address | [address] | | | [place] [address] | + + + | Home Phone [...] | Organization | [facility] | | | and [place] | + + + | Address | Unknown | + + + | Phone | Unavailable | + + + Support + + + + + | Name | Relationship | Address | Phone | + + + + + | [employer] | ECON | [id number] | | | | | Unknown | | + + + + + Care Team Providers + +------+ + | Care Manager Primary Care Name | Role | Phone | [...] | hypertension (HCC) | | | | [place], | | (Primary Dx); | | | | [place] [address] | | Obstructive sleep | | | | [phone] | | apnea; Hypoxemia; | | | | | | COPD (chronic | | | | | | obstructive | | | | | | pulmonary disease) | | | | | | (HCC); [place]; | | | | | | Chronic right-sided | | | | | | heart failure ([facility]); | | | | | | Borderline [...] MD Elo Bernardo Pulmonary and Critical Care [facility] [address] [place], [address] HPI Margarita Rowley is a 48 y.o. [...] Years of Education: N/A Occupational History Disabled. [employer] Social History Main Topics Smoking status: Former Smoker -- 1.0 packs/day for 20 years Types: Cigarettes Quit date: 05/14/2013 Smokeless tobacco: None Alcohol Use: Yes Comment: history of abuse Drug Use: Yes Special: Cocaine Comment: history of cocaine use Sexually Active: None Other Topics Concern None Social History Narrative Lives at [facility]. Allergies: Allergies Allergen Reactions Erythromycin Metronidazole Penicillins [...] TABS Take 2,000 Units by mouth Daily. [place] Starch POWD by Does not apply route [...] 100 mg by mouth 2 times daily. [place]-3 Fatty Acids (SEA-OMEGA 30) 1200 MG CAPS [...] made to ensure accuracy; however, inadvertent computerized music critic errors may be pre sent. documented in [...] | | | | | [place] [address] | | | | | | [phone] | | | | | | | | +--------+ + + + + | 07/23/ | Office | Pulmonology | Helen Astudillo | | | 2019 | Visit | | MD Vikash [address] | | | | | | [address] [place] | | | | | | [place] [address] | | | | | | [phone] | | | | | | | [...] | [facility] | | | | [place] [facility] | | MEDICAL | | | [...] + | [facility] | [address] | [place] | [phone] | | [facility] | | [address] | | | - LABORATORY | | | | + + + + + | [facility] | [address] | [place], [place] | | | [facility] | | [address] [place] [address] | | | - LABORATORY | | [...]
--- OUTSIDE RECORDS SUMMARY | ~2020-07-11 | XMS | Encounter Summary ---
Demographics + + + | Address | [address] | | | [place] [address] | + + + | Home Phone [...] Organization | [facility] | | | and [place] | + + + | Address | Unknown | + + + | Phone | Unavailable | + + + Support + + + + + | Name | Relationship | Address | Phone | + + + + + | [employer] | ECON | [id number] | | | | | Unknown | | + + + + + Care Team Providers + +------+ + | Care Boat Joiner Name | Role | Phone | [...] MD | oximetry) | | | | [place], | | | | | | [place] [address] | | | | | | [phone] | | | +--------+ + + + [...] PSTCalled and talked with Kamala at the [employer]. Advised per Dr Lainez thatBeatrisrossy does [...] | | | | | [place] [address] | | | | | | [phone] | | | | | | | | +--------+ + + + + | 07/23/ | Office | Pulmonology | Helen Astudillo | | | 2019 | Visit | | MD [address] | | | | | | [address] | | | | | | [place] [address] | | | | | | [phone] | | | | | | | [...] until 09/16/2015 | | | | | ([facility]) | | + + +--------+ + + documented as of this encounter Visit Diagnoses + + | Diagnosis | + + | COPD (chronic obstructive pulmonary disease) ([facility]) - Primary Chronic airway | | obstruction, not elsewhere classified | + + documented in this encounter"
--- OUTSIDE RECORDS SUMMARY | ~2020-07-11 | XMS | Encounter Summary ---
Demographics + + + | Address | [address] | | | [place] [address] | + + + | Home Phone [...] + | [employer] | ECON | [phone] | | | | | Unknown | | + + + + + Care Team Providers + +------+ + | Care House Rn Name | Role | Phone | [...] | Primary | Offenstein, | [address] | | | | | pulmonary | Vera B, | [place], | | | | | hypertension | MD [address] | [place] | | | | | ([facility]) | [address] | [address] | | | | | Procedures | [place], | Phone: | | | | | ECHO | [place] [address] | [phone] | | | | | Complete | | Fax: | | | | | | | [phone] | +--------+--------+ + + + + Reason [...] | | | Pulmonology | airway | MECHANICAL SERVICE REPRESENTATIVE [address] | MD [address] | | | | | obstruction, | [address] | [address] | | | | | not | [address] | [place], | | | | | elsewhere | [place], | [place] [address] | | | | | classified | [place] [address] | | | | | | COPD | Phone: | | | | | | Procedures | [phone] | | | | | | 3 MO FOLLOW | Fax: | | | | | | UP | [phone] | | +--------+--------+ + + + + Encounter Details +--------+---------+ + + + | Date | Type | Department | Care Team | Description | +--------+---------+ + + + | 06/11/ | Office | [facility] | Offenstein, | Primary pulmonary | | 2013 | Visit | PULMONARY [address] | Vera Farrar MD | hypertension | | | | [place], | | (Primary Dx); [place] | | | | [place] [address] | | (obstructive sleep | | | | [phone] | | apnea); COPD | | | [...] pulmonary disease) ([facility]) moderate, FEV1 1.40 (59%) Pulmonary hypertension ([facility]) severe, class 1, class 2, class 3 [...] Years of Education: N/A Occupational History Disabled. [employer] Social History Main Topics Smoking status: Former Smoker -- 1.0 packs/day for 20 years Types: Cigarettes Quit date: 05/14/2013 Smokeless tobacco: None Alcohol Use: Yes Comment: history of abuse Drug Use: Yes Special: Cocaine Comment: history of cocaine use Sexually Active: None Other Topics Concern None Social History Narrative Lives at [facility]. Allergies: Allergies Allergen Reactions Erythromycin Metronidazole Penicillins [...] Take 2,000 Units by mouth Daily. [place] Starch POWD by Does not apply route [...] tablet Take 15 mg by mouth Daily. [place]-3 Fatty Acids (SEA-OMEGA 30) 1200 MG CAPS [...] 327.23 1 each 0 Respiratory Therapy [facility] Please contact Dr. Lainez's office if oxygen [...] We will check echocardiogram at [facility] appointment in 6 months. Continue higher [...] made to ensure accuracy; however, inadvertent computerized adjunct physics instructor errors may be pre sent. Electronically signed by: Vera Lainez MD 06/11/2014 8:55 documented in t his encounter Procedure Notes ONBASE SCAN THOR - 06/11/2014 12:00 AM PDTAssociated Order(s): IMAGING REPORT - EXTERNAL SC AN documented in this encount er Miscellaneous Notes Miscellaneous - ONBASE SCAN THOR - 06/11/2014 12:00 AM PDT lan of Care - ALBA LINDER - 04/09/2014 12:00 AM PDTElec tronically signed [...] | | | | | [place] [address] | | | | | | [phone] | | | | | | | | +--------+ + + + + | 07/23/ | Office | Pulmonology | Helen Astudillo | | | 2019 | Visit | | MD [address] | | | | | | [place] | | | | | | [place] [address] | | | | | | [phone] | | | | | | | [...] | [facility] ECHOCARDIOGRAM REPORT | CROUSE | | STUDY DATE: 09/11/2014 PATIENT NAME: Margarita Rowley : | [place] | | 1965 PCP: Gela Trimble NP | [facility] | | CLINICAL HISTORY/DIAGNOSIS: Pulmonary hypertension [...] | | | Ananth Salguero MD PhD [facility] 09/11/2014 10:45 | | | Flume Tender: Hung Caro, JUANITOCS, RVT, RDMS | | + + + + + | Procedure Note | + + | Roberto Salguero MD - 09/12/2014 9:12 AM [facility] | | CENTERECHOCARDIOGRAM REPORTSTUDY DATE: 09/11/2014PATIENT NAME: Margarita RowleyB: | | 1965MRN: [id number]: Gela Trimble [facility]NOSIS: | | Pulmonary hypertensionA transthoracic [...] PP mmHgLA volume: 30 mLLA index: 16 mL/g1Xsyrbz Inflow DT: 272 | | msIVRT: 110 msValsalva: Not neededPWDTI S wave: 7.2 cm/sPWDTI E wave: 8.0 cm/sPWDTI | | A wave: 10.4 cm/sE/A Ratio: 0.769E/E Ratio: 10.63Signed by: Artie Salguero MD | | PhD [facility] 09/11/2014 10:45 Flume Tender: Hung Caro, RDCS, RVT, RDMS | |Tricuspid [...] 09/11/2014 10:45 | | | | | |Flume Tender: Hung Caro, RDCS, RVT, RDMS | + + + + + + + | Performing | Address | City/State/Zipcode | Phone Number | | Organization | | | | + + + + + | [facility] | [address] | [place] | [phone] | | [facility] | | [address] | | | - IMAGING | | [...]
--- OUTSIDE RECORDS SUMMARY | ~2020-07-11 | XMS | Encounter Summary ---
Demographics + + + | Address | [address] | | | [place] [address] | + + + | Home Phone [...] + | [employer] | ECON | [phone] | | | | | Unknown | | + + + + + Care Team Providers + +------+ + | Care Mule Spinner Name | Role | Phone | + [...] | Primary | Offenstein, | [address] | | | | | pulmonary | Vera B, | [place], | | | | | hypertension | MD [address] | [place] | | | | | ([facility]) | [address] | [address] | | | | | Procedures | [place], | Phone: | | | | | ECHO | [place] [address] | [phone] | | | | | Complete [place] | | Fax: | | | | | ECHO HEART | | [phone] | | | | | XTHORACIC,[place] | | | | | | | [address] | | | | | | | [place] | | | | | | | [...] | Primary | Offenstein, | [address] | | | | | pulmonary | Vera B, | [place], | | | | | hypertension | MD [address] | [place] | | | | | (HCC) | [address] | [address] | | | | | Procedures | [place], | Phone: | | | | | ECHO | [place] [address] | [phone] | | | | | Complete [place] | | Fax: | | | | | ECHO HEART | | [phone] | | | | | [place]TH[place]ACIC,[place] | | | | | | | [address] | | | | | | | [place] | | | | | | | [...] + + | 03/26/ | Hospital | [facility] | Saharaenstein, | Primary pulmonary | | 2014 | Encounter | MED CTR ECHO [address] | Vera Farrar MD | hypertension | | | | [place] | Maciel Silva, | | | | | [place] [address] | Technologist | | | | | [phone] | | | +--------+ + + + [...] + + + +---------+ + + | [place] Starch POWD | by Does not apply [...] + + + +---------+ + + | [place]-3 Fatty | Take by mouth. | | [...] | | | | | [place] [address] | | | | | | [phone] | | | | | | | | +--------+ + + + + | 07/23/ | Office | Pulmonology | Helen Astudillo | | 2019 | Visit | | MD [address] | | | | | | [place] | | | | | | [place] [address] | | | | | | [phone] | | | | | | | [...] Performed At | + + + | [facility] ECHOCARDIOGRAM REPORT | [place] | | STUDY DATE: 03/26/2015 PATIENT NAME: Margarita Rowley : | [facility] | | 1965 PCP: Physician Elisabeth CLINICAL [facility] | | HISTORY/DIAGNOSIS: Pulmonary HTN A [...] Signed by: Derick Strong, | | | [facility] 03/26/2015 13:52 Graduate Studies Dean: Maciel Silva, | | | RDCS, RDMS, RVT | | + + + + + + + + | Performing | Address | City/State/Zipcode | Phone Number | | Organization | | | | + + + + + | [facility] | [address] | [place] | [phone] | | [facility] | | [address] | | | - IMAGING | | [...]
--- OUTSIDE RECORDS SUMMARY | ~2020-07-11 | XMS | Encounter Summary ---
Demographics + + + | Address | [address] | | | [place] [address] | + + + | Home Phone [...] + | [employer] | ECON | [phone] | | | | | Unknown | | + + + + + Care Team Providers + +------+ + | Care Dress Cutter Name | Role | Phone | [...] | | ABDIRASHID BROTHERS | [place] [address] | | | | | [place] | [phone] | | | | | [address] | | | | | | [phone] | Shady Mcdonald | | | | | | MD [address] | | | | | | [place], [place] | | | | | | [address] | | | | | | [phone] | | | | | | | [...] | | | | | [place] [address] | | | | | | [phone] | | | | | | | | +--------+ + + + + | 07/23/ | Office | Pulmonology | Helen Astudillo | | | 2019 | Visit | | MD [address] | | | | | | [address] | | | | | | [place] [address] | | | | | | [phone] | | | | | | | | +--------+ + + + + documented as of this encounter Visit Diagnoses Not on filedocumented in this encounter"
--- OUTSIDE RECORDS SUMMARY | ~2020-07-11 | XMS | Encounter Summary ---
Demographics + + + | Address | [address] | | | [place] [address] | + + + | Home Phone [...] + | [employer] | ECON | [phone] | | | | | Unknown | | + + + + + Care Team Providers + +------+ + | Care Technical Account Manager Name | Role | Phone | + +------+ + | Gela Trimble NP | PCP | | + +------+ + Encounter Details +--------+ + + + + | Date | Type | Department | Care Team | Description | +--------+ + + + + | 08/27/ | Hospital | [facility] | Offenstein, | Primary pulmonary | | 2012 | Encounter | MED CTR LABORATORY | Vera Farrar MD | hypertension (HCC) | | | | [address] [place] | | | | | | [place] | | | | | | [address] | | | | | | [phone] | | | +--------+ + + + [...] | | | ([facility]) | | | | | | [...] + + + +---------+ + + | [place] Starch POWD | by Does not apply [...] + + + +---------+ + + | [place]-3 Fatty | Take by mouth. | | [...] | | | | | [place] [address] | | | | | | [phone] | | | | | | | | +--------+ + + + + | 07/23/ | Office | Pulmonology | Helen Astudillo | | | 2019 | Visit | | MD Vikash [address] | | | | | | [address] [facility] | | | | | | [place] [address] | | | | | | [phone] | | | | | | | [...] 85 | 70 - 109 mg/dL | [place] | | | | [...] | 1.06 | 0.60 - 1.30 | [place] | | | | | mg/dL | [...] + | [facility] | [address] | [place], [place] | [phone] | | [facility] | | [address] | | | - LABORATORY | | | | + + + + + | [facility] | [address] | [place], [place] | | | [facility] | | [address] | | | - [...] + | [facility] | [address] | [place], [place] | [phone] | | [facility] | | [address] | | | - LABORATORY | | | | + + + + + | [facility] | [address] | [place], [place] | | | [facility] | | [address] [place] [address] | | | - LABORATORY | | | | + + + + + documented in this encounter Visit Diagnoses + + | Diagnosis | + + | Primary pulmonary hypertension (HCC) Primary pulmonary hypertension | + + documented in this encounter"
--- OUTSIDE RECORDS SUMMARY | ~2020-07-11 | XMS | Encounter Summary ---
Demographics + + + | Address | [address] | | | [place] [address] | + + + | Home Phone [...] + | [employer] | ECON | [phone] | | | | | Unknown | | + + + + + Care Team Providers + +------+ + | Care Photographic Reproduction Technician Name | Role | Phone | + +------+ + | Yuni Shrestha | PCP | | + +------+ + Encounter Details +--------+ + + + + | Date | Type | Department | Care Team | Description | +--------+ + + + + | 11/07/ | Hospital | [facility] | Saharaenstein, | Primary pulmonary | | 2016 | Encounter | MED CTR PULMONARY | Vera Farrar MD | hypertension; | | | | FUNCTION [address] | | Hypoxemia | | | | [place], | | | | | | [place] [address] | | | | | | [phone] | | | +--------+ + + + [...] + + + +---------+ + + | [place] Starch POWD | by Does not apply [...] + + + +---------+ + + | [place]-3 Fatty | Take by mouth. | | [...] | | | | | [place] [address] | | | | | | [phone] | | | | | | | | +--------+ + + + + | 07/23/ | Office | Pulmonology | Helen Astudillo | | | 2019 | Visit | | MD Vikash [address] | | | | | | [address] | | | | | | [place] [address] | | | | | | [phone] | | | | | | | [...]
--- OUTSIDE RECORDS SUMMARY | ~2020-07-11 | XMS | Encounter Summary ---
Demographics + + + | Address | [address] | | | [place] [address] | + + + | Home Phone [...] + | [employer] | ECON | [phone] | | | | | Unknown | | + + + + + Care Team Providers + +------+ + | Care Guitar Maker Name | Role | Phone | [...] | | | | ABDIRASHID BROTHERS | [facility] [place] | | | | | [place] | [address] | | | | | [address] | [phone] | | | | | [phone] | | | +--------+ + + + [...] | | | | | [place] [address] | | | | | | [phone] | | | | | | | | +--------+ + + + + | 07/23/ | Office | Pulmonology | Helen Astudillo | | | 2019 | Visit | | MD [address] | | | | | | [address] [place] | | | | | | [place] [address] | | | | | | [phone] | | | | | | | | +--------+ + + + + documented as of this encounter Visit Diagnoses Not on filedocumented in this encounter"
--- OUTSIDE RECORDS SUMMARY | ~2020-07-11 | XMS | Encounter Summary ---
Demographics + + + | Address | [address] | | | [place] [address] | + + + | Home Phone [...] Organization | [facility] | | | and [place] | + + + | Address | Unknown | + + + | Phone | Unavailable | + + + Support + + + + + | Name | Relationship | Address | Phone | + + + + + | [employer] | ECON | [phone] | | | | | Unknown | | + + + + + Care Team Providers + +------+ + | Care Entry Analyst Name | Role | Phone | + +------+ + | Yuni Shrestha | PCP | | + +------+ + Encounter Details +--------+ + + + + | Date | Type | Department | Care Team | Description | +--------+ + + + + | 03/20/ | Hospital | [facility] | Conversion | Diagnosis unknown | | 2017 | Encounter | CONVERSION [address] | Transaction, | | | | | [address] | Provider Unknown | | | | | [facility] [place] | [phone] | | | | | [address] | | | | | | [phone] | | | +--------+ + + + [...] + + + +---------+ + + | [place] Starch POWD | by Does not apply [...] | | | | | [place] [address] | | | | | | [phone] | | | | | | | | +--------+ + + + + | 07/23/ | Office | Pulmonology | Helen Astudillo | | | 2019 | Visit | | MD [address] | | | | | | [address] [place] | | | | | | [place] [address] | | | | | | [phone] | | | | | | | | +--------+ + + + + documented as of this encounter Visit Diagnoses + + | Diagnosis | + + | Diagnosis unknown Other unknown and unspecified cause of morbidity or mortality | + + documented in this encounter"
--- OUTSIDE RECORDS SUMMARY | ~2020-07-11 | XMS | Encounter Summary ---
Demographics + + + | Address | [address] | | | [place] [address] | + + + | Home Phone [...] + | [employer] | ECON | [phone] | | | | | Unknown | | + + + + + Care Team Providers + +------+ + | Care Software Engineering Associate Manager Name | Role | Phone | + +------+ + | Gela Trimble NP | PCP | | + +------+ + Encounter Details +--------+ + + + + | Date | Type | Department | Care Team | Description | +--------+ + + + + | 09/11/ | Hospital | [facility] | Fatou, | Primary pulmonary | | 2013 | Encounter | MED CTR PULMONARY | Vera Farrar MD | hypertension; COPD | | | | FUNCTION [address] | | (chronic obstructive | | | | [place], | | pulmonary disease); | | | | [place] [address] | | Hypoxemia | | | | [phone] | | | +--------+ + + + [...] | | | | | | | ([facility]) | | | | | | + [...] + + + +---------+ + + | [place] Starch POWD | by Does not apply [...] + + + +---------+ + + | [place]-3 Fatty | Take by mouth. | | [...] documented as of this encounter Procedure Notes [facility] - 09/11/2014 12:00 AM PSTAssociated Order(s): DIAGNOSTIC REPORT - EXTERNAL SCANElectronically signed by [facility] at 09/20/2014 12:20 PM PST[facility] - 08/31 12:00 AM PSTAssociated Order(s): DIAGNOSTIC REPORT - EXTERNAL SCANElectronically sign ed by linnea [facility] at 09/20/2014 12:20 PM PSTdocumented in this encounter Plan of Treatment +--------+ [...] | | | | | [place], [place] [address] | | | | | | [phone] | | | | | | | | +--------+ + + + + | 07/23/ | Office | Pulmonology | Helen Astudillo | | | 2019 | Visit | | MD [address] | | | | | | [address] [place] | | | | | | [place], [place] [address] | | | | | | [phone] | | | | | | | [...]
--- OUTSIDE RECORDS SUMMARY | ~2020-07-11 | XMS | Encounter Summary ---
Demographics + + + | Address | [address] | | | [place] [address] | + + + | Home Phone [...] + | [employer] | ECON | [id number] | | | | | Unknown | | + + + + + Care Team Providers + +------+ + | Care Fire Behavior Analyst Name | Role | Phone | [...] | | | Hypoxemia | [place] | [address] Phone: | | | | | Procedures | [address] | [phone] | | | | | F/U APPT | Phone: | Fax: | | | | | [facility] | [phone] | [phone] | | | | | 01/29/2020 | Fax: | | | | | | | [phone] | | + +--------+ + + + + Encounter Details +--------+---------+ + + + | Date | Type | Department | Care Team | Description | +--------+---------+ + + + | 04/16/ | Office | [facility] | Baudilio Helen | Primary pulmonary | | 2020 | Visit | PULMONARY [address] | MD Vikash [address] | hypertension (HCC) | | | | [place], | [address] [place] | (Primary Dx); | | | | [place] [address] | [place] [address] | Chronic obstructive | | | | [phone] | [phone] | pulmonary disease, | | | | [...] is followed by Dr. Lashae Rivera, at [facility] in [place], [place] for pulmona ry HTN. - Patient recently admitted to hospital 01/31 to 02/19/2020 at [facility] for ARDS secondar y to Metapneumovirus pneumonia [...] since her hosp italization in 01/2020 at [facility]. - She has been prescribed to do [...] with Bipap. - She lives in a custodial. She is able to feed herself and [...] Plan: 1. Primary pulmonary hypertension (HCC) PFT [facility] 2. Chronic obstructive pulmonary disease, unspecified COPD type (HCC) PFT [facility] 3. Chronic hypoxemic respiratory failure (HCC) Pulmonary [...] | | | | | [place] [address] | | | | | | [phone] | | | | | | | | +--------+ + + + + | 07/23/ | Office | Pulmonology | Helen Astudillo | | | 2019 | Visit | | MD [address] | | | | | | [address] [place] | | | | | | [place] [address] | | | | | | [phone] | | | | | | | [...]
--- OUTSIDE RECORDS SUMMARY | ~2020-07-11 | XMS | Encounter Summary ---
Demographics + + + | Address | [address] | | | [place] [address] | + + + | Home Phone [...] + | [employer] | ECON | [id number] | | | | | Unknown | | + + + + + Care Team Providers + +------+ + | Care Traffic Signal Mechanic Name | Role | Phone | + +------+ + PCP | Unavailable | + +------+ + Encounter Details +--------+ + + + + | Date | Type | Department | Care Team | Description | +--------+ + + + + | 04/11/ | Hospital | [facility] | Edwar [place] | | | 2011 | Encounter | HOSPITAL EMERGENCY | MD [address] | | | | | CENTER [address] | [facility] | | | | | [address] [place] | [place] [address] | | | | | [address] | [phone] | | | | | [phone] | | | +--------+ + + + [...] | | | | | | [place] [address] | | | | | | [phone] | | | | | | | | +--------+ + + + + | 07/23/ | Office | Pulmonology | Helen Astudillo | | | 2019 | Visit | | MD [address] | | | | | | [address] [place] | | | | | | [place] [address] | | | | | | [phone] | | | | | | | | +--------+ + + + + documented as of this encounter Visit Diagnoses Not on filedocumented in this encounter"
--- OUTSIDE RECORDS SUMMARY | ~2020-07-11 | XMS | Encounter Summary ---
Demographics + + + | Address | [address] | | | [place] [address] | + + + | Home Phone [...] + | [employer] | ECON | [phone] | | | | | Unknown | | + + + + + Care Team Providers + +------+ + | Care Executive Vice President Name | Role | Phone | + +------+ + | Gela Trimble NP | PCP | | + +------+ + Encounter Details +--------+ + + + + | Date | Type | Department | Care Team | Description | +--------+ + + + + | 12/12/ | [facility] | [facility] | Jacky Calderon PA | | | 2013 | Encounter | MED CTR SLEEP | [address] | | | | | CENTER [address] | [place] | | | | | [place] | [address] | | | | | [address] | | | | | | [phone] | | | +--------+ + + + [...] + + + +---------+ + + | [place] Starch POWD | by Does not apply [...] + + + +---------+ + + | [place]-3 Fatty | Take by mouth. | | [...] | | | | | [place] [address] | | | | | | [phone] | | | | | | | | +--------+ + + + + | 07/23/ | Office | Pulmonology | Helen Astudillo | | | 2019 | Visit | | MD [address] | | | | | | [address] | | | | | | [place] [address] | | | | | | [phone] | | | | | | | | +--------+ + + + + documented as of this encounter Visit Diagnoses Not on filedocumented in this encounter"
--- OUTSIDE RECORDS SUMMARY | ~2020-07-11 | XMS | Encounter Summary ---
Demographics + + + | Address | [address] | | | [place] [address] | + + + | Home Phone [...] | Organization | [facility] | | | and [place] | + + + | Address | Unknown | + + + | Phone | Unavailable | + + + Support + + + + + | Name | Relationship | Address | Phone | + + + + + | [employer] | ECON | [phone] | | | | | Unknown | | + + + + + Care Team Providers + +------+ + | Care Transplant Registered Nurse Name | Role | Phone | [...] | | | | | pharyngeal | SHIPYARD PAINTER APPRENTICE [address] | SHIPYARD PAINTER APPRENTICE [address] | | | | | phase | [address] | [address] | | | | | Procedures | [place], | [address] | | | | | Office Visit | [place] [address] | [place], | | | | | | Phone: | [place] [address] | | | | | | [phone] | Phone: | | | | | | Fax: | [phone] | | | | | | [phone] | Fax: | | | | | | | [phone] | +--------+--------+ + + + + Encounter [...] dysphagia (Primary | | | | [address], [place] | [place], [place] | Dx); Chronic | | | | [address] | [address] | obstructive | | | | [phone] | | pulmonary disease, | | | | | | unspecified COPD | | | | | | type (HCC); | | | | | | Developmental delay; | | | | | | GLORIA (obstructive | | | | | | sleep apnea); | | | | | | Seizure disorder | | | | | | ([facility]) | +--------+---------+ + + + Social History [...] [place]) moderate, FEV1 1.40 (59%) Pulmonary hypertension (HCC) [...] Years of Education: N/A Occupational History Disabled. [employer] Social History Main Topics Smoking status: Former Smoker -- 1.00 packs/day for 20 years Types: Cigarettes Quit date: 12/15/2015 Smokeless tobacco: Never Used Comment: Smoking a cigarette every 2 hours Alcohol Use: No Drug Use: No Sexual Activity: Not on file Other Topics Concern Not on file Social History Narrative Lives at [facility]. Review of systems: Constitutional:Denies any fevers, chills, [...] prescribed. Discussed that if PPI is used correction, Calcium an d Vitamin D should be [...] | | 2019 | | | MD [address]Jey [address]h [address] | | | | | | [address] | | | | | | [place] [address] | | | | | | [phone] | | | | | | | | +--------+ + + + + | 07/23/ | Office | Pulmonology | Helen Astudillo | | 2019 | Visit | | MD [address] | | | | | | [address] | | | | | | [place] [address] | | | | | | [phone] | | | | | | | [...]
--- OUTSIDE RECORDS SUMMARY | ~2020-07-11 | XMS | Encounter Summary ---
Demographics + + + | Address | [address] | | | [place] [address] | + + + | Home Phone [...] + | [employer] | ECON | [id number] | | | | | Unknown | | + + + + + Care Team Providers + +------+ + | Care Ostrich Farm Worker Name | Role | Phone [...] | | | | | | | [place] XCAPSL | | | | | | [...] + + | 05/08/ | Surgery | [facility] | Angel Garcia | Left EXTRACTION | | 2019 | | MED CTR OR INTRA OP | MD Vladimir [address] | CATARACT W/ LENS | | | | [address] | [place] | IMPLANT | | | | [place] | [place] [address] | | | | | [address] | [phone] | | | | | [phone] | | | +--------+---------+ + + + [...] You can't be awakened Fever New rash [employer] last reviewed this educational content on 08/17/201619990609-1933 [employer]. [address] [place] [address], [place] [id number]. All righ ts reserved. This information is [...] symptoms, immediately call your eye doctor or [facility] at (dial "9" after hours [...] + + +---------+ + + | NYSTATIN [id number] | as needed | | 0 | [...] Garcia MD, 05/08/2020 9:32 AM PDT 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), left eye Post-op Diagnosis: same Procedure: Cataract extraction by phacoemulsification with intraocular lens implant with tr trell loya, left eye (20120) Implant: Costa PCB00 23.5 D, SN [id number] Surgeon: Angel Garcia MD Anesthesia: Monitored Anesthesia Care Technique/Procedure Description: After the patient's eye prepped and draped in the usual [facility] ophthalmic manner, a lid speculum was [...] Suh | | | | | | [address] | | | | | | [place] [address] | | | | | | [phone] | | | | | | | | +--------+ + + + + | 07/23/ | Office | Pulmonology | Helen Astudillo | | | 2019 | Visit | | MD Joey Suh [address] | | | | | | [address] | | | | | | [place] [address] | | | | | | [phone] | | | | | | | [...] Needs | | | | | | Furniture Sales Consultant | | | al | | | [...] | | Site | | PRN, Starting [facility] 05/08/20 at 0944, | | AM [...] | | | | | PRN, Starting [facility] 05/08/20 at 0944, | | | | [...] | Site | | kit PRN, Starting Tue05/08/20 at | | AM PDT | | [...] | Surgical | | (uro-jet) PRN, Starting Tue | | 20 9:44 | Applicat | [...] PRN, Nausea, Vomiting, | | | Starting [facility] 05/08/20 at 1009, | | | [...] | | | | | | Starting [facility] 05/08/20 at 0801, For | | [...] | | | Site | | Starting [facility] 05/08/20 at 0953, | | AM [...] | | | Site | | Starting [facility] 05/08/20 at 0930, | | AM [...] | | Site | | PRN, Starting [facility] 05/08/20 at 0955, | | AM PDT [...] | | | Site | | Starting [facility] 05/08/20 at 0946, | | AM PDT | | | | | Intra-op | | | | | | + +-------+ +---------+---+ + +---+---+ | | | +---+---+ documented in this encounter
--- OUTSIDE RECORDS SUMMARY | ~2020-07-11 | XMS | Encounter Summary ---
Demographics + + + | Address | [address] | | | [place] [address] | + + + | Home Phone [...] + | [employer] | ECON | [id number] | | | | | Unknown | | + + + + + Care Team Providers + +------+ + | Care Wet Machine Operator Name | Role | Phone [...] MD | hypertension | | | | [place], | | (Primary Dx); COPD | | | | [place] [address] | | (chronic obstructive | | | | [phone] | | pulmonary disease); | | | [...] seeing a neurologist for the tremors in [facility] next week. Her breathing has been doing [...] Hypothyroidism Seizure disorder (HCC) Developmental delay Hypoxemia ([facility]) on 2L at rest, 4L with exertion Female stress incontinence Pyelonephritis Hypertension Impulse control disorder Hyperlipidemia Obesity Alcohol abuse Cocaine abuse Atrial fibrillation ([facility]) Past Surgical History Past Surgical History Procedure Date Mouth surgery 2 teeth removed Cardiac catherization Social History: History Social History Marital Status: Single Spouse Name: N/A Number of Children: N/A Years of Education: N/A Occupational History Disabled. [employer] Social History Main Topics Smoking status: Former Smoker -- 1.0 packs/day for 20 years Types: Cigarettes Quit date: 05/14/2013 Smokeless tobacco: None Alcohol Use: Yes Comment: history of abuse Drug Use: Yes Special: Cocaine Comment: history of cocaine use Sexually Active: None Other Topics Concern None Social History Narrative Lives at [employer]. Allergies: Allergies Allergen Reactions Erythromycin Metronidazole [...] TABS Take 2,000 Units by mouth Daily. [place] Starch POWD by Does not apply route [...] tablet Take 15 mg by mouth Daily. [employer]-3 Fatty Acids (SEA-OMEGA 30) 1200 MG CAPS [...] mouth 2 times daily. Respiratory Therapy Supplies [facility] BIPAP ST rate 8 cm H2O. IPAP 19/EPAP 5. O2 bleed in a t 2 l/m. Lifetime. Dx: 327.23 1 each 0 Respiratory Therapy Supplies [facility] Please contact Dr. Lainez's office if oxygen [...] Paroxysmal atrial fibrillation- Per caregiver seen at [facility] visit. We will ge t records [...] Letairis. 5. We will get records from [facility] ER visit, but I did suggest cardiology [...] made to ensure accuracy; however, inadvertent computerized adjuster piano action errors may be pre sent. Electronically signed [...] [place] | | | | | | [place] [address] | | | | | | [phone] | | | | | | | | +--------+ + + + + | 07/23/ | Office | Pulmonology | Helen Astudillo | | | 2019 | Visit | | MD Vikash [address] | | | | | | [address] [place] | | | | | | [place] [address] | | | | | | [phone] | | | | | | | [...]
--- OUTSIDE RECORDS SUMMARY | ~2020-07-11 | XMS | Encounter Summary ---
Demographics + + + | Address | [address] | | | [place] [address] | + + + | Home Phone [...] + | [employer] | ECON | [id number] | | | | | Unknown | | + + + + + Care Team Providers + +------+ + | Care Clinical Data Associate Name | Role | Phone | [...] | | | Pulmonology | airway | K[address]TER [address] | MD | | | | | obstruction, | [address] | | | | | | not | [place], | | | | | | elsewhere | [place] [address] | | | | | | classified | Phone: | | | | | | Procedures | [phone] | | | | | | F/U | Fax: | | | | | | | [phone] | | +--------+--------+ + + + + Encounter Details +--------+---------+ + + + | Date | Type | Department | Care Team | Description | +--------+---------+ + + + | 08/08/ | Office | [facility] [place] | Offenstein, | Primary pulmonary | | 2015 | Visit | PULMONARY [address] | Vera Farrar MD | hypertension | | | | [place], | | (Primary Dx); COPD | | | | [place] [address] | | (chronic obstructive | | | | [phone] | | pulmonary disease); | | | [...] to have a box delivered by the [employer]. Wear the finger probe through the night. Do the test on 5L bled in to th e BiPAP. Call the [facility] to have the box picked up the [...] follow up echocardiogram, which was done in [place] . Since their last visit she feels [...] Years of Education: N/A Occupational History Disabled. [employer] Social History Main Topics Smoking status: Current [...] Concern None Social History Narrative Lives at [facility]. Allergies: Allergies Allergen Reactions Erythromycin Metronidazole [...] TABS Take 2,000 Units by mouth Daily. [place] Starch POWD by Does not apply route [...] mg onto the skin every 24 hours. [place]-3 Fatty Acids (SEA-OMEGA 30) 1200 MG CAPS [...] echo in July with visit by local electrical products engineer. If further increase in estimated PASP by [...] to ensure accuracy; however, inadvertent computerized supervisor liquefaction errors may be pre sent. documented in [...] | | | | | [place] [address] | | | | | | [phone] | | | | | | | | +--------+ + + + + | 07/23/ | Office | Pulmonology | Helen Astudillo | | | 2020 | Visit | | MD Vikash [address] | | | | | | [address] [place] | | | | | | [place] [address] | | | | | | [phone] | | | | | | | [...] BNP | 99 | <100 pg/mL | [facility] | | | | | [...] + + | [address] | [address] | [place] | [phone] | | [facility] | | [address] | | | - LABORATORY | | [...] [facility] | | | | | | [facility] | | | | | | MEDICAL | | | | | | CENTER - | | | | | | LABORATORY | | + + + + + + | Creatinine | 0.91 | 0.60 - 1.30 | [facility] | | | | | mg/dL | [facility] | | | | | | MEDICAL | | | | | | CENTER - | | | | | | LABORATORY | | + + + + + + | eGFR, | >60Comment: GLOMERULAR | >=60 | [facility] | | | non- | FILTRATION | mL/min/1.73m2 | [facility] | | | [place] | RATE,ESTIMATED | | MEDICAL | | | | mL/min/1.55c6Zajz than | | CENTER - | | [...] [facility]OFFMAN. | [address] | [place], [place] | [phone] | | [facility] | | [address] | | | - LABORATORY | | [...]
--- OUTSIDE RECORDS SUMMARY | ~2020-07-11 | XMS | Encounter Summary ---
Demographics + + + | Address | [address] | | | [place] [address] | + + + | Home Phone [...] + | [employer] | ECON | [id number] | | | | | Unknown | | + + + + + Care Team Providers + +------+ + | Care Hr Recruiter Name | Role | Phone | + [...] MD | increase) | | | | [place], | | | | | | [place] [address] | | | | | | [phone] | | | +--------+ + + + [...] this is based on sleep study results. [place] see PSG results as documented. Electronical ly signed by Vera Lainez MD at 12/27/2013 12:20 PM PSTTelephone Encounter - Tarah Dalton RN - 12/27/2013 9:43 AM Naomi from [facility] called to confirm with that it is [...] | | | | | [place] [address] | | | | | | [phone] | | | | | | | | +--------+ + + + + | 07/23/ | Office | Pulmonology | Helen Astudillo | | 2019 | Visit | | MD Joey Su[address] | | | | | | [address] | | | | | | [place] [address] | | | | | | [phone] | | | | | | | | +--------+ + + + + documented as of this encounter Visit Diagnoses Not on filedocumented in this encounter"
--- OUTSIDE RECORDS SUMMARY | ~2020-07-11 | XMS | Encounter Summary ---
Demographics + + + | Address | [address] | | | [place] [address] | + + + | Home Phone [...] | Organization | [facility] | | | and [place] | + + + | Address | Unknown | + + + | Phone | Unavailable | + + + Support + + + + + | Name | Relationship | Address | Phone | + + + + + | [employer] | ECON | [id number] | | | | | Unknown | | + + + + + Care Team Providers + +------+ + | Care First Officer Name | Role | Phone | [...] | | | Pulmonology | obstructive | COAL HIKER [address] | MD | | | | | pulmonary | [address] | | | | | | disease, | [place], | | | | | | unspecified | [place] [address] | | | | | | (HCC) | Phone: | | | | | | Procedures | [phone] | | | | | | F/U | Fax: | | | | | | | [phone] | | +--------+--------+ + + + + Encounter Details +--------+---------+ + + + | Date | Type | Department | Care Team | Description | +--------+---------+ + + + | 11/07/ | Office | [facility] [place] | [place]enstein, | Primary pulmonary | | 2016 | Visit | PULMONARY [address] | Vera Farrar MD | hypertension | | | | [place], | | (Primary Dx); [place] | | | | [place] [address] | | (obstructive sleep | | | | [phone] | | apnea); Hypoxemia; | | | [...] Diagnosis Date COPD (chronic obstructive pulmonary disease) ([facility]) moderate, FEV1 1.40 (59%) Pulmonary hypertension ([facility]) severe, class 1, class 2, class 3 Bipolar disorder ([facility]) PTSD (post-traumatic stress disorder) Osteoarthritis Obstructive sleep apnea AHI 64.2 Vitamin D deficiency GERD (gastroesophageal reflux disease) Hypothyroidism Seizure disorder ([facility]) Developmental delay Hypoxemia on 2L [...] Years of Education: N/A Occupational History Disabled. [employer] Social History Main Topics Smoking status: Current Every Day Smoker -- 1.00 packs/day for 20 years Types: Cigarettes Smokeless tobacco: Never Used Alcohol Use: No Drug Use: No Sexual Activity: None Other Topics Concern None Social History Narrative Lives at [employer]. Allergies: Allergies Allergen Reactions Erythromycin Metronidazole Penicillins [...] TABS Take 2,000 Units by mouth Daily. [place] Starch POWD by Does not apply route [...] mg onto the skin every 24 hours. [place]-3 Fatty Acids (SEA-OMEGA 30) 1200 MG CAPS [...] breath sounds are diminished bilaterally, no wheezes, frame and scrap crusher ckles or rhonchi Chest Wall: [...] compliance, not using her oxygen appropriately. * [facility] ([facility]) Pulmonary Function Testing - AMB Referral [...] made to ensure accuracy; however, inadvertent computerized drafter castings errors may be pre sent. documented in [...] | | | | | [place] [address] | | | | | | [phone] | | | | | | | | +--------+ + + + + | 07/23/ | Office | Pulmonology | Helen Astudillo | | | 2019 | Visit | | MD Vikash [address] | | | | | | [address] [place] | | | | | | [place] [address] | | | | | | [phone] | | | | | | | [...] mL/min/1.73m2 | [facility] | | | [place] | RATE,ESTIMATED | | MEDICAL | | | | mL/min/1.70g6Oyxp than | | CENTER - | | [...] 4.0 | 3.2 - 5.0 g/dL | [facility] | | | | | | [facility] | | | | | | MEDICAL | | | | | | CENTER - | | | | | | LABORATORY | | + + + + + + | Bilirubin | 0.4 | 0.1 - 1.5 mg/dL | [facility] | | | Total | | | [...] [address] | [place] | [phone] | | [facility] | | [address] | | | - LABORATORY | | [...] | | | Eosinophils | | | [facility] | | | [...] | | Neutrophils | | K/uL | [facility] | | | | | | MEDICAL | | | | | | CENTER - | | | | | | LABORATORY | | + +-------+ + + + | Absolute | 1.40 | 0.60 - 3.20 | [facility] | | | Lymphocytes | | K/uL | [facility] | [...] | | Basophils | | K/uL | [facility] | [...] [address] | [place] | [phone] | | [facility] | | [address] | | | - LABORATORY | | [...]
--- OUTSIDE RECORDS SUMMARY | ~2020-07-11 | XMS | Encounter Summary ---
Demographics + + + | Address | [address] | | | [place] [address] | + + + | Home Phone [...] + | [employer] | ECON | [id number] | | | | | Unknown | | + + + + + Care Team Providers + +------+ + | Care Billet Checker Name | Role | Phone | [...] | SLEEP DISORDER [address] | [address] | sleep apnea (Primary | | | | [address] [place] | [place] | Dx) | | | | [place] [address] | [address] | | | | | [phone] | | | +--------+---------+ + + + [...] Go to [facility] to get: -Respironics AmaraView full face mask [...] visit: 07/26/2017 date of polysomnography: 03/13/2013 at [facility] AHI: 64.2 O2%: n/a Machine type: Respironics BiPAP Auto Mask type: ResMed Quattro FX full face mask DME: [facility] in [place] pressure: 16/5 cm with backup rate of [...] full face mask. She may consider using [facility], if [facility] in [place] does not get her the correct mask. [...] Assessment: Problem #1: PRIMARY CENTRAL SLEEP APNEA ([id number]) This is controlled with BiPAP and oxygen [...] | | | | | [place] [address] | | | | | | [phone] | | | | | | | | +--------+ + + + + | 07/23/ | Office | Pulmonology | Helen Astudillo | | | 2019 | Visit | | MD Joey Suh W | | | | | | [address] | | | | | | [place] [address] | | | | | | [phone] | | | | | | | | +--------+ + + + + documented as of this encounter Visit Diagnoses + + | Diagnosis | + + | Primary central sleep apnea - Primary | + + documented in this encounter"
--- OUTSIDE RECORDS SUMMARY | ~2020-07-11 | XMS | Encounter Summary ---
Demographics + + + | Address | [address] | | | [place] [address] | + + + | Home Phone [...] + | [employer] | ECON | [id number] | | | | | Unknown | | + + + + + Care Team Providers + +------+ + | Care Custom Frame Assembler Name | Role | Phone | [...] + + | 01/23/ | [facility] | Jacky Calderon PA | Primary central | | 2013 | Visit | SLEEP DISORDER [address] | [address] | sleep apnea (Primary | | | | [address] [place] | [place] | Dx) | | | | [place] [address] | [address] | | | | | [phone] | | | +--------+---------+ + + + [...] was: 12/26/2013 date of polysomnography: 03/13/2013 at [facility] AHI: 64.2 O2%: n/a Machine type: Respironics BiPAP Auto with ResMed Quattro FX full face mask obtained from: [facility] pressure: [...] months, sooner prn. Fifteen minutes were spent [id number] , with the majority of time spent in counseling. Jacky Calderon PA-C cc: BRUCE Beal MD documented in this enco unter Miscellaneous Notes Miscellaneous - ALBA CELESTEMD - 01/23/2014 12:00 AM PDT documented in [...] | | [address] [facility] | | | | | | [place] [address] | | | | | | [phone] | | | | | | | | +--------+ + + + + | 07/23/ | Office | Pulmonology | Helen Astudillo | | | 2019 | Visit | | MD Vikash [address] | | | | | | [address] [place] | | | | | | [place] [address] | | | | | | [phone] | | | | | | | | +--------+ + + + + documented as of this encounter Visit Diagnoses + + | Diagnosis | + + | Primary central sleep apnea - Primary | + + documented in this encounter"
--- OUTSIDE RECORDS SUMMARY | ~2020-07-11 | XMS | Encounter Summary ---
Demographics + + + | Address | [address] | | | [place] [address] | + + + | Home Phone [...] + | [employer] | ECON | [id number] | | | | | Unknown | | + + + + + Care Team Providers + +------+ + | Care Real Estate Lawyer Name | Role | Phone | + [...] [address] [place] | [facility] [place] | | | | | [place] | [address] | | | | | [address] | [phone] | | | | | [phone] | | | +--------+ + + + [...] | | | | | | [place] [address] | | | | | | [phone] | | | | | | | | +--------+ + + + + | 07/23/ | Office | Pulmonology | Helen Astudillo | | | 2019 | Visit | | MD Joey Suh [address] | | | | | | [address] [place] | | | | | | [place] [address] | | | | | | [phone] | | | | | | | | +--------+ + + + + documented as of this encounter Visit Diagnoses Not on filedocumented in this encounter"
--- OUTSIDE RECORDS SUMMARY | ~2020-07-11 | XMS | Encounter Summary ---
Demographics + + + | Address | [address] | | | [place] [address] | + + + | Home Phone [...] Team Providers + +------+ + | Care Space Control Supervisor Name | Role | Phone | + +------+ + | Gela Trimble FIRE MANAGEMENT SPECIALIST | PCP | | + +------+ [...] | | | | | | | [address] | | | | | | | [place] | | | | | | | Mushtaq Mailcode: | | | | | | | [address] [facility] | | | | | | | [facility] | | | | | | | [place], [place] | | | | | | | [address] | | | | | | | Phone: | | | | | | | [phone] | | | | | | | Fax: | | | | | | | [phone] | +--------+--------+ + + + + Encounter Details +--------+ + + + + | Date | Type | Department | Care Team | Description | +--------+ + + + + | 05/07/ | Results/Int | Pulmonary Function | | Unspecified asthma | | 2012 | erpretation | Lab at [facility] [address] | | (Primary Dx) | | | | [address] | | | | | | [facility] | | | | | | [place], [place] | | | | | | [address] | | | | | | [phone] | | | +--------+ + + + [...] | + +--------+ + + + | TX SPIROMETRY TEST | Routin | 05/08/2013 | [...]
--- OUTSIDE RECORDS SUMMARY | ~2020-07-11 | XMS | Encounter Summary ---
Demographics + + + | Address | [address] | | | [place] [address] | + + + | Home Phone [...] + | [employer] | ECON | [id number] | | | | | Unknown | | + + + + + Care Team Providers + +------+ + | Care Electric Spot Welder Name | Role | Phone | + [...] | Primary | Offenstein, | [address] | | | | | pulmonary | Vera B, | [place], | | | | | hypertension | MD [address] | [place] | | | | | ([facility] | [address] | [address] | | | | | Procedures | [place], | Phone: | | | | | ECHO | [place] [address] | [phone] | | | | | Complete [place] | | Fax: | | | | | ECHO HEART | | [phone] | | | | | XTHORACIC,[place] | [...] | | | Pulmonology | airway | TECHNOLOGY SALES CONSULTANT [address] | MD | | | | | obstruction, | IRMA | | | | | | not | [address] | | | | | | elsewhere | [place], | | | | | | classified | [place] [address] | | | | | | Procedures | Phone: | | | | | | F/U | [phone] | | | | | | | Fax: | | | | | | | [phone] | | +--------+--------+ + + + + Encounter Details +--------+---------+ + + + | Date | Type | Department | Care Team | Description | +--------+---------+ + + + | 03/12/ | Office | [facility] [place] | Fatou, | Primary pulmonary | | 2015 | Visit | PULMONARY [address] | Vera B, MD | hypertension; | | | | [address] [place], | | Exercise hypoxemia | | | | [place] [address] | | ([facility]); Sleep related | | | | [phone] | | hypoxemia; COPD | | | [...] Years of Education: N/A Occupational History Disabled. [employer] Social History Main Topics Smoking status: Former Smoker -- 1.00 packs/day for 20 years Types: Cigarettes Quit date: 12/10/2014 Smokeless tobacco: None Comment: restarted in August 2014, quit again 12/10/14 Alcohol Use: Yes Comment: history of abuse Drug Use: Yes Special: Cocaine Comment: history of cocaine use Sexual Activity: None Other Topics Concern None Social History Narrative Lives at [employer]. Allergies: Allergies Allergen Reactions Erythromycin Metronidazole Penicillins [...] TABS Take 2,000 Units by mouth Daily. [place] Starch POWD by Does not apply route [...] mg onto the skin every 24 hours. [place]-3 Fatty Acids (SEA-OMEGA 30) 1200 MG CAPS [...] kg (205 lb 11.2 oz) | B MN 41.52 kg/m2 | SpO2 90% RA General [...] breath sounds are diminished bilaterally, no wheezes, awning craftsperson ckles or rhonchi Chest Wall: No deformity [...] Range: 0-100 6 eGFR, External Latest Range: [id number] (A) Immunization History Administered Date(s) Administered [...] made to ensure accuracy; however, inadvertent computerized medical physiologist errors may be pre sent. documented in [...] | | | | | | [place] [address] | | | | | | [phone] | | | | | | | | +--------+ + + + + | 07/23/ | Office | Pulmonology | Helen Astudillo | | | 2020 | Visit | | MD Vikash [address] | | | | | | [address] [place] | | | | | | [place] [address] | | | | | | [phone] | | | | | | | [...] + + + | ECHOCARDIOGRAM REPORT | [facility] | | STUDY DATE: 03/26/2015 PATIENT NAME: Margarita Rowley : | [facility] | | 1965 PCP: Physician No CLINICAL | MEDICAL CENTER | | HISTORY/DIAGNOSIS: [...] Signed by: Derick Strong, | | | [facility] 03/26/2015 13:52 Nursery Laborer: Maciel Silva, | | | RDCS, RDMS, RVT | | + + + + + + + + | Performing | Address | City/State/Zipcode | Phone Number | | Organization | | | | + + + + + | [facility] | [address] | [place] | [phone] | | [facility] | | [address] | | | - IMAGING | | [...]
--- OUTSIDE RECORDS SUMMARY | ~2020-07-11 | XMS | Encounter Summary ---
Demographics + + + | Address | [address] | | | [place] [address] | + + + | Home Phone [...] + | [employer] | ECON | [phone] | | | | | Unknown | | + + + + + Care Team Providers + +------+ + | Care Art Glass Setter Name | Role | Phone | + +------+ + | Yuni Shrestha | PCP | | + +------+ + Encounter Details +--------+ + + + + | Date | Type | Department | Care Team | Description | +--------+ + + + + | 06/12/ | Hospital | [facility] | Off[place], | Exercise hypoxemia | | 2015 | Encounter | MED CTR PULMONARY | Vera Farrar MD | ([facility]); Primary | | | | FUNCTION [address] | | pulmonary | | | | [place], | | hypertension | | | | [place] [address] | | | | | | [phone] | | | +--------+ + + + [...] | 0 | 12/11/19 | | | (Whereoscope) 0.65% nasal | package instructions | Bottle [...] ([facility]) | | | | | | [...] + + + +---------+ + + | [place] Starch POWD | by Does not apply [...] + + + +---------+ + + | [place]-3 Fatty | Take by mouth. | | [...] | | | | | [place] [address] | | | | | | [phone] | | | | | | | | +--------+ + + + + | 07/23/ | Office | Pulmonology | Helen Astudillo | | | 2019 | Visit | | MD Vikash [address] | | | | | | [address] [place] | | | | | | [place] [address] | | | | | | [phone] | | | | | | | [...] | | 9:41 AM | ([facility]) Primary | | | ORDERS | [...]
--- OUTSIDE RECORDS SUMMARY | ~2020-07-11 | XMS | Encounter Summary ---
Demographics + + + | Address | [address] | | | [place] [address] | + + + | Home Phone [...] + | [employer] | ECON | [phone] | | | | | Unknown | | + + + + + Care Team Providers + +------+ + | Care Chaperon Name | Role | Phone | + [...] Farrar MD | | | | | [place], | | | | | | [place] [address] | | | | | | [phone] | | | +--------+ + + + [...] scheduled f or 07/04/13 elephone Jose Carlos cuellar - Nati Sanches - 05/07/2013 11:52 AM PDTRADANNNN CALLED PATIENT 7--13 TO Amadou BISHOP A NEW PATIENT CONSULT. THE [employer] STATED THAT SHE IS IN THE HOSPITAL IN [facility]. THEY WILL CALL BACK TO SCHEDULE [...] | | | | | [address] [facility] | | | | | | [place] [address] | | | | | | [phone] | | | | | | | | +--------+ + + + + | 07/23/ | Office | Pulmonology | Helen Astudillo | | | 2019 | Visit | | MD Vikash [address] | | | | | | [address] | | | | | | [place] [address] | | | | | | [phone] | | | | | | | | +--------+ + + + + documented as of this encounter Visit Diagnoses Not on filedocumented in this encounter"
--- OUTSIDE RECORDS SUMMARY | ~2020-07-11 | XMS | Encounter Summary ---
Demographics + + + | Address | [address] | | | [place] [address] | + + + | Home Phone [...] + | [employer] | ECON | [phone] | | | | | Unknown | | + + + + + Care Team Providers + +------+ + | Care Scientific Helper Name | Role | Phone | [...] in to BIPAP) | | | | [place], | | | | | | [place] [address] | | | | | | [phone] | | | +--------+ + + + [...] encounter Miscellaneous Notes Telephone Encounter - Tarah Nion RN - 03/14/2015 3:15 PM PDTFaxed this message to Kamala at [phone]. P M PDTTelephone Encounter - Vera Lainez MD - 03/14/2015 12:34 PM PDTI was told yes terday she was on 4L and it had been changed by the sleep center. They should therefore do w hat the sleep center had told them to do previously. elephone Encounter - Tarah Nino RN - 11:44 AM PDTStefanie called from [employer] to confirm that Margarita is to [...] | | | | | [place] [address] | | | | | | [phone] | | | | | | | | +--------+ + + + + | 07/23/ | Office | Pulmonology | Helen Astudillo | | | 2019 | Visit | | MD Joey Suh | | | | | | [address] [place] | | | | | | [place] [address] | | | | | | [phone] | | | | | | | | +--------+ + + + + documented as of this encounter Visit Diagnoses Not on filedocumented in this encounter
--- OUTSIDE RECORDS SUMMARY | ~2020-07-11 | XMS | Encounter Summary ---
Demographics + + + | Address | [address] | | | [place] [address] | + + + | Home Phone [...] + | [employer] | ECON | [phone] | | | | | Unknown | | + + + + + Care Team Providers + +------+ + | Care Discovery Guide Name | Role | Phone | + [...] | | pulmonary | [address] | [place], [place] | | | | | disease, | [place], | [address] | | | | | unspecified | [place] | Phone: | | | | | (HCC) | [address] | [phone] | | | | | Procedures | Phone: | Fax: | | | | | OFFICE VISIT | [phone] | [phone] | | | | | EXTENDED | Fax: | | | | | | | [phone] | | +--------+--------+ + + + + Encounter Details +--------+---------+ + + + | Date | Type | Department | Care Team | Description | +--------+---------+ + + + | 01/31/ | Office | [facility] | Scout Arthur, | Primary pulmonary | | 2019 | Visit | PULMONARY [address] | [address] | hypertension (HCC) | | | | [place], | [place] [address] | (Primary Dx); | | | | [place] [address] | [phone] | Hypoxia | | | | [phone] | | | +--------+---------+ + + + [...] Scout Arthur MD - 01/31/2019 2:00 PM [id number] former smoker with primar y pulmonary hypertension [...] so we are asking [facility] in [facility] to give her a new BiPAP machine [...] is a note from Dr. Huang in [place] that CMP, CBC, and ESR w ere [...] BiPAP equipme nt. We spent 20 minutes, [id number], at least half in counseling. Word processing [...] | | | | | [place] [address] | | | | | | [phone] | | | | | | | | +--------+ + + + + | 07/23/ | Office | Pulmonology | Helen Astudillo | | 2019 | Visit | | MD Vikash [address] | | | | | | [address] | | | | | | [place] [address] | | | | | | [phone] | | | | | | | | +--------+ + + + + documented as of this encounter Visit Diagnoses + + | Diagnosis | + + | Primary pulmonary hypertension (HCC) - Primary Primary pulmonary hypertension | + + | Hypoxia Hypoxemia | + + documented in this encounter
--- OUTSIDE RECORDS SUMMARY | ~2020-07-11 | XMS | Encounter Summary ---
Demographics + + + | Address | [address] | | | [place] [address] | + + + | Home Phone [...] + | [employer] | ECON | [phone] | | | | | Unknown | | + + + + + Care Team Providers + +------+ + | Care Dry Cleaning Machine Operator Name | Role | Phone [...] | | | | [place] | [address] | | | | | [address] | [phone] | | | | | [phone] | | | +--------+ + + + [...] | | | | | | [place] [address] | | | | | | [phone] | | | | | | | | +--------+ + + + + | 07/23/ | Office | Pulmonology | Helen Astudillo | | | 2019 | Visit | | MD Joey Suh [address] | | | | | | [address] [place] | | | | | | [place] [address] | | | | | | [phone] | | | | | | | | +--------+ + + + + documented as of this encounter Visit Diagnoses Not on filedocumented in this encounter"
--- OUTSIDE RECORDS SUMMARY | ~2020-07-11 | XMS | Encounter Summary ---
Demographics + + + | Address | [address] | | | [place] [address] | + + + | Home Phone [...] Author + + + | Author | [facility] | + + + | Organization | [facility] | + + + | Address | Unknown | + + + | Phone | Unavailable | + + + Support + + +---------+ + | Name | Relationship | Address | Phone | + + +---------+ + | Lidia Thibodeaux | ECON | Unknown | | + + +---------+ + Care Team Providers + +------+ + | Care Emergency Technician Name | Role | Phone | [...] | | | | Melanocytic | Yuni, LIFE SKILLS TEACHER | Marivel C, | | | | | nevi, | [facility] | ,PhD 1936 | | | | | unspecified | Terence | Jose Carlos | | | | | | Family Care | [place], | | | | | | [address] | [place] [address] | | | | | | Terence [place] | Phone: | | | | | | [place], | [phone] | | | | | | [place] [address] | Fax: | | | | | | Phone: | [phone] | | | | | | [phone] | | | | | | | Fax: | | | | | | | [phone] | | +--------+--------+ + + + + Encounter Details +--------+---------+ + + + | Date | Type | Department | Care Team | Description | +--------+---------+ + + + | 07/19/ | Office | Dermatology at | Marivel Rao, | Nevus (Primary Dx) | | 2015 | Visit | [facility] | ,PhD 1936 | | | | | Clinic [address] | [address] [place], [place] | | | | | [place], [place] | [address] | | | | | [address] | [phone] | | | | | [phone] | | | +--------+---------+ + + + [...] skin cance rs including melanoma. ? The [place] [employer] (AAD) recommends you wear [...] information is available at the following websites: [email or web address]://[email or web address]/xd/health/services/[email or web address]_[email or web address] - [facility] Derm atology http://www.aad.org/public/sun/smart.html - AAD [...] cancer. She is here today with her sales marketing manager. Vega skin type II. She does occasionally [...] fail to improve. Marivel Rao M.D. Ph.D. Hide Worker Department of Dermatology [facility] ([facility]) Dermatology documented in th is encounter Plan of Treatment Not on filedocumented as of this encounter Visit Diagnoses + + | Diagnosis | + + | Nevus - Primary Benign neoplasm of skin, site unspecified | + + documented in this encounter
--- OUTSIDE RECORDS SUMMARY | ~2020-07-11 | XMS | Encounter Summary ---
Demographics + + + | Address | [address] | | | [place] [address] | + + + | Home Phone [...] + | [employer] | ECON | [phone] | | | | | Unknown | | + + + + + Care Team Providers + +------+ + | Care Hydrogenation Still Operator Name | Role | Phone | [...] | | | | | | [place] [address] | | | | | | [phone] | | | +--------+ + + + [...] | | | | | | [place] [address] | | | | | | [phone] | | | | | | | | +--------+ + + + + | 07/23/ | Office | Pulmonology | Helen Astudillo | | | 2019 | Visit | | MD Vikash [address] | | | | | | [address] [place] | | | | | | [place] [address] | | | | | | [phone] | | | | | | | [...] +--------+ + + + | EXTERNAL LAB: ANTWAN, | Routin | 10/07/2014 | | Results [...] | eGFR, | 58 (A) | 60 999,999 | EXTERNAL | | | External [...] | [address] | [address] | [place] | | | [facility] | | [address] | | | - [...] [facility] | [address] | [place] | | | [facility] | | [address] | | | - LABORATORY | | | | + + + + + documented in this encounter Visit Diagnoses Not on filedocumented in this encounter"
--- OUTSIDE RECORDS SUMMARY | ~2020-07-11 | XMS | Encounter Summary ---
Demographics + + + | Address | [address] | | | [place] [address] | + + + | Home Phone [...] | Organization | [facility] | | | and [place] | + + + | Address | Unknown | + + + | Phone | Unavailable | + + + Support + + + + + | Name | Relationship | Address | Phone | + + + + + | [employer] | ECON | [phone] | | | | | Unknown | | + + + + + Care Team Providers + +------+ + | Care Business Development Consultant Name | Role | Phone | [...] | | | | | (HCC) | [address] | AVE | | | | | Procedures | [place], | [place], [place] | | | | | ECHO | [place] [address] | [address] | | | | | Complete [place] | | Phone: | | | | | E[facility] HEART | | [phone] | | | | | [place] | | Fax: | | | | | [address] | | [phone] | | | | | [place] | | | | | | | [...] | | | Pulmonology | obstructive | CUSTOMER CONTACT SPECIALIST [address] | MD | | | | | pulmonary | [address] | | | | | | disease, | [place], | | | | | | unspecified | [place] [address] | | | | | | ([facility]) | Phone: | | | | | | Procedures | [phone] | | | | | | F/U | Fax: | | | | | | | [phone] | | +--------+--------+ + + + + Encounter Details +--------+---------+ + + + | Date | Type | Department | Care Team | Description | +--------+---------+ + + + | 04// | Office | [facility] | Offenstein, | Primary pulmonary | | 2016 | Visit | PULMONARY [address] | Vera Farrar MD | hypertension (HCC) | | | | [place], | | (Primary Dx); | | | | [place] [address] | | Chronic obstructive | | | | [phone] | | pulmonary disease, | | | [...] COPD (chronic obstructive pulmonary disease) ([facility]) moderate, FEV1 1.40 (59%) Pulmonary hypertension ([facility]) severe, class 1, class 2, class 3 Bipolar disorder ([facility]) PTSD (post-traumatic stress disorder) Osteoarthritis Obstructive sleep apnea AHI 64.2 Vitamin D deficiency GERD (gastroesophageal reflux disease) Hypothyroidism Seizure disorder ([facility]) Developmental delay Hypoxemia on 2L [...] Years of Education: N/A Occupational History Disabled. [employer] Social History Main Topics Smoking status: Former Smoker -- 1.00 packs/day for 20 years Types: Cigarettes Quit date: 12/15/2015 Smokeless tobacco: Never Used Alcohol Use: No Drug Use: No Sexual Activity: Not on file Other Topics Concern None Social History Narrative Lives at [facility]. Allergies: Allergies Allergen Reactions Erythromycin Other (See [...] TABS Take 2,000 Units by mouth Daily. [place] Starch POWD by Does not apply route [...] mg onto the skin every 24 hours. [employer]-3 Fatty Acids (SEA-OMEGA 30) 1200 MG CAPS [...] appointment with Dr. Rivera. ECHO Complete * [facility] ([facility]) Pulmonary Function Testing - AMB Referral [...] made to ensure accuracy; however, inadvertent computerized male model errors may be pre sent. documented in t his encounter Plan of Treatment +--------+ + + + + | Date | Type | Specialty | Care Team | Description | +--------+ + + + + | 09/23/ | Appointment | Pulmonology | Filibertojina Helen | | | 2019 | | | MD Joey Su[address] | | | | | | [address] [place] | | | | | | [place] [address] | | | | | | [phone] | | | | | | | | +--------+ + + + + | 07/23/ | Office | Pulmonology | Helen Astudillo | | | 2019 | Visit | | MD Joey Suh [address] | | | | | | [address] [place] | | | | | | [place], [place] [address] | | | | | | [phone] | | | | | | | [...]
--- OUTSIDE RECORDS SUMMARY | ~2020-07-11 | XMS | Encounter Summary ---
[...] + | [employer] | ECON | [phone] | | | | | Unknown | | + + + + + Care Team Providers + +------+ + | Care Key Account Director Name | Role | Phone | [...] [place], [place] | | | | | [address] | [address] | | | | | [phone] | [phone] | | | | | | | [...] | | | | | [place] [address] | | | | | | [phone] | | | | | | | | +--------+ + + + + | 07/23/ | Office | Pulmonology | Helen Astudillo | | | 2019 | Visit | | MD Joey Suh [address] | | | | | | [address] [place] | | | | | | [place] [address] | | | | | | [phone] | | | | | | | | +--------+ + + + + documented as of this encounter Visit Diagnoses Not on filedocumented in this encounter"
--- OUTSIDE RECORDS SUMMARY | ~2020-07-11 | XMS | Encounter Summary ---
Demographics + + + | Address | [address] | | | [place] [address] | + + + | Home Phone [...] Organization | [facility] | | | and [place] | + + + | Address | Unknown | + + + | Phone | Unavailable | + + + Support + + + + + | Name | Relationship | Address | Phone | + + + + + | [employer] | ECON | [phone] | | | | | Unknown | | + + + + + Care Team Providers + +------+ + | Care Dining Room Host Name | Role | Phone | + +------+ + | Yuni Shrestha | PCP | | + +------+ + Encounter Details +--------+ + + + + | Date | Type | Department | Care Team | Description | +--------+ + + + + | 02/02/ | Hospital | [facility] | Fatou, | Primary pulmonary | | 2016 | Encounter | MED CTR PULMONARY | Vera Farrar MD | hypertension | | | | FUNCTION [address] | | | | | | [place], | | | | | | [place] [address] | | | | | | [phone] | | | +--------+ + + + [...] + + + +---------+ + + | [place] Starch POWD | by Does not apply [...] + + +---------+ + + | [facility]-3 Fatty | Take by mouth. | | [...] | | | | | [place] [address] | | | | | | [phone] | | | | | | | | +--------+ + + + + | 07/23/ Office | Pulmonology | Helen Astudillo | | | 2019 | Visit | | MD Vikash [address] | | | | | | [address] | | | | | | [place] [address] | | | | | | [phone] | | | | | | | [...]
--- OUTSIDE RECORDS SUMMARY | ~2020-07-11 | XMS | Encounter Summary ---
Demographics + + + | Address | [address] | | | [place] [address] | + + + | Home Phone [...] + | [employer] | ECON | [phone] | | | | | Unknown | | + + + + + Care Team Providers + +------+ + | Care Vice President Of Business Development Name | Role | Phone | [...] [address] | [facility] | | | | | [address] [place] [place] | [place] [address] | | | | | [address] | [phone] | | | | | [phone] | | | +--------+ + + + [...] | | | | | | [place] [address] | | | | | | [phone] | | | | | | | | +--------+ + + + + | 07/23/ | Office | Pulmonology | Helen Astudillo | | | 2019 | Visit | | MD Joey Su[address] | | | | | | [address] [place] | | | | | | [place] [address] | | | | | | [phone] | | | | | | | | +--------+ + + + + documented as of this encounter Visit Diagnoses Not on filedocumented in this encounter"
--- OUTSIDE RECORDS SUMMARY | ~2020-07-11 | XMS | Encounter Summary ---
Demographics + + + | Address | [address] | | | [place] [address] | + + + | Home Phone [...] + | [employer] | ECON | [phone] | | | | | Unknown | | + + + + + Care Team Providers + +------+ + | Care Human Resources Consultant Name | Role | Phone | + +------+ + | Gela Trimble NP | PCP | | + +------+ + Reason for Visit +--------+--------+ + | Reason | Onset | Comments | | | Date | | +--------+--------+ + | Other | 08/08/ | YUMIKO# for prescription Tim CALDERON#[id number] from | | | 2012 | 08.07.13-08.07.14 | +--------+--------+ + Encounter Details +--------+ + + + + | Date | Type | Department | Care Team | Description | +--------+ + + + + | 08/08/ | Telephone | [facility] | Valeria Reed, | Other ([place]# for | | 2012 | | PULMONARY [address] | RN | prescription Adcirca | | | | [place], | | [place]#[id number] from | | | | [place] [address] | | 08.07.13-08.07.14) | | | | [phone] | | | +--------+ + + + [...] Gillis RN - 08/08/2013 9:[facility] [phone] received prior authorization for 1 year for prescription A dcirca. Called pharmacy and patient mental health case manager. documented in this encounter Plan [...] | | | | | [place] [address] | | | | | | [phone] | | | | | | | | +--------+ + + + + | 07/23/ | Office | Pulmonology | Helen Astudillo | | 2019 | Visit | | MD Joey Suh [address] | | | | | | [address] [place] | | | | | | [place] [address] | | | | | | [phone] | | | | | | | | +--------+ + + + + documented as of this encounter Visit Diagnoses Not on filedocumented in this encounter"
--- OUTSIDE RECORDS SUMMARY | ~2020-07-11 | XMS | Encounter Summary ---
Demographics + + + | Address | [address] | | | [place] [address] | + + + | Home Phone [...] + | [employer] | ECON | [phone] | | | | | Unknown | | + + + + + Care Team Providers + +------+ + | Care Building Supervisor Name | Role | Phone | [...] | | | | | | [place] [address] | | | | | | [phone] | | | +--------+ + + + [...] 2:09 PM PDTNotified caregiver Buck daniel at [facility] (patient's home number) that Dr Lainez reviewed 07/09/15 labs a nd test is negative but we need to continue monthly checks for documentation for m edication and also that chest x ray is stable that was done 07/10/15 at [facility] signed by Jia Noriega RN at 07/30/2015 [...] | | | | | | [address] [facility] | | | | | | [place] [address] | | | | | | [phone] | | | | | | | | +--------+ + + + + | 07/23/ | Office | Pulmonology | Helen Astudillo | | 2019 | Visit | | Sherrin, MD [address] | | | | | | [address] | | | | | | [place] [address] | | | | | | [phone] | | | | | | | | +--------+ + + + + documented as of this encounter Visit Diagnoses Not on filedocumented in this encounter"
--- OUTSIDE RECORDS SUMMARY | ~2020-07-11 | XMS | Encounter Summary ---
Demographics + + + | Address | [address] | | | [place] [address] | + + + | Home Phone [...] + | [employer] | ECON | [phone] | | | | | Unknown | | + + + + + Care Team Providers + +------+ + | Care Machine Shorthand Teacher Name | Role | Phone | + +------+ + | Yuni Shrestha | PCP | | + +------+ + Encounter Details +--------+ + + + + | Date | Type | Department | Care Team | Description | +--------+ + + + + | 06/11/ | Abstract | [facility] [place] | [facility], | | | 2016 | | GASTROENTEROLOGY | BRITTANY Maddox [address] | | | | | [address] | [address] | | | | | [address] [place], [place] | [place], [place] | | | | | [address] | [address] | | | | | [phone] | | | +--------+ + + + [...] | | | | | [place] [address] | | | | | | [phone] | | | | | | | | +--------+ + + + + | 07/23/ | Office | Pulmonology | Helen Astudillo | | 2019 | Visit | | MD [address] | | | | | | [address] [place] | | | | | | [place] [address] | | | | | | [phone] | | | | | | | | +--------+ + + + + documented as of this encounter Visit Diagnoses Not on filedocumented in this encounter"
--- OUTSIDE RECORDS SUMMARY | ~2020-07-11 | XMS | Encounter Summary ---
Demographics + + + | Address | [address] | | | [place] [address] | + + + | Home Phone [...] + | [employer] | ECON | [phone] | | | | | Unknown | | + + + + + Care Team Providers + +------+ + | Care Pre Press Operator Name | Role | [...] RN | apnea | | | | [place], | | | | | | [place] [address] | | | | | | [phone] | | | +--------+ + + + [...] | | | | | [place] [address] | | | | | | [phone] | | | | | | | | +--------+ + + + + | 07/23/ | Office | Pulmonology | Helen Astudillo | | | 2019 | Visit | | MD [address] | | | | | | [address] [place] | | | | | | [place] [address] | | | | | | [phone] | | | | | | | | +--------+ + + + + documented as of this encounter Visit Diagnoses + + | Diagnosis | + + | Obstructive sleep apnea Obstructive sleep apnea (adult) (pediatric) | + + documented in this encounter"
--- OUTSIDE RECORDS SUMMARY | ~2020-07-11 | XMS | Encounter Summary ---
Demographics + + + | Address | [address] | | | [place] [address] | + + + | Home Phone [...] + | [employer] | ECON | [phone] | | | | | Unknown | | + + + + + Care Team Providers + +------+ + | Care Family Lawyer Name | Role | Phone | [...] + + | 08/06/ | Office | [facility] [place] | Offenstein, | Pulmonary | | 2012 | Visit | PULMONARY [address] | Vera Farrar MD | hypertension (HCC) | | | | [place], | | (Primary Dx); | | | | [place] [address] | | Obstructive sleep | | | | [phone] | | apnea; COPD (chronic | | [...] [place] [facility] [address] [place], [address] HPI Keo Rowley is a 47 y.o. [...] get an appointment with Dr. Rivera in [place], which is next week. Initially appar ently [...] Years of Education: N/A Occupational History Disabled. [employer] Social History Main Topics Smoking status: Former Smoker -- 1.0 packs/day for 20 years Types: Cigarettes Quit date: 05/14/2013 Smokeless tobacco: None Alcohol Use: Yes history of abuse Drug Use: Yes Special: Cocaine history of cocaine use Sexually Active: None Other Topics Concern None Social History Narrative Lives at [facility]. Allergies: Allergies Allergen Reactions Erythromycin Metronidazole Penicillins [...] Active Take 2,000 Units by mouth Daily. Valley Starch POWD Active by Does not apply [...] patch onto the skin every 24 hours. [place]-3 Fatty Acids (SEA-OMEGA 30) 1200 MG CAPS [...] autoantibody IgG Latest Range: <1.0 AI <0.2 FISHING CAPTAIN Autoantibody Latest Range: <1.0 AI 0.4 R[place]LEY [...] sooner with concerns. CC: Gela Guerrero C, THIRD COOK, Lashae Rivera MD Portions of this report were transcribed using voice recognition software. Every effort wa s made to ensure accuracy; however, inadvertent computerized returned goods receiving clerk errors may be pre sent. documented in t his encounter Plan of Treatment +--------+ + + + + | Date | Type | Specialty | Care Team | Description | +--------+ + + + + | 07/23/ | Appointment | Pulmonology | Helen Astudillo | | | 2019 | | | MD Vikash [address] | | | | | | [facility] | | | | | | [place] [address] | | | | | | [phone] | | | | | | | | +--------+ + + + + | 07/23/ | Office | Pulmonology | Helen Astudillo | | | 2019 | Visit | | MD Vikash [address] | | | | | | [address] [facility] | | | | | | [place] [address] | | | | | | [phone] | | | | | | | [...]
--- OUTSIDE RECORDS SUMMARY | ~2020-07-11 | XMS | Encounter Summary ---
Demographics + + + | Address | [address] | | | [place] [address] | + + + | Home Phone [...] + | [employer] | ECON | [phone] | | | | | Unknown | | + + + + + Care Team Providers + +------+ + | Care Workers' Compensation Mediator Name | Role | Phone | + +------+ + | Gela Trimble NP | PCP | | + +------+ + Encounter Details +--------+ + + + + | Date | Type | Department | Care Team | Description | +--------+ + + + + | 07/04/ | Hospital | [facility] | Offenstein, | Pulmonary | | 2012 | Encounter | MED CTR GENERIC OP | Vera Farrar MD | hypertension (HCC) | | | | CONV DEPT [address] | | | | | | [place], | | | | | | [place] [address] | | | | | | [phone] | | | +--------+ + + + [...] | + + + +---------+--------+ + | [place]-3 Fatty | Take by mouth. | | [...] | | | | | [place] [address] | | | | | | [phone] | | | | | | | | +--------+ + + + + | 07/23/ | Office | Pulmonology | Helen Astudillo | | | 2019 | Visit | | MD [address] | | | | | | [address] [place] | | | | | | [place] [address] | | | | | | [phone] | | | | | | | [...] 07/04/2013 | + +------+--------+ + + | MEAT PASSER Ab, IgG | Lab | Routin | [...] | | | | [address], [place], [place] | | | | | | [address] CLIA: | | | | | | [id number] | | | | + + + + + + + + | Specimen | + + | | + + + + + + + | Performing | Address | City/State/Zipcode | Phone Number | | Organization | | | | + + + + + | [facility] | [address] | [place], [place] | [phone] | | [facility] | | [address] | | | - LABORATORY | | | | + + + + + | [facility] | [address] | [place], [place] | | | [facility] | | [address], [facility] | | | - LABORATORY [...] | | MEDICAL | | | | [place] [address] | | CENTER - | | | | CLIA: [id number] | | LABORATORY | | + + + + + + + + | Specimen | + + | | + + + + + + + | Performing | Address | City/State/Zipcode | Phone Number | | Organization | | | | + + + + + | [facility] | [address] | [place] | [phone] | | [facility] | | [address] | | | - LABORATORY | | | | + + + + + | [facility] | [address] | [place] | | | [facility] | | [address] | | | - LABORATORY | [...] | Autoantibod | Testing Performed: | | [facility] | | | y | [facility], [address], | | MEDICAL | | | | [place] [address] | | CENTER - | | | | YANG: [id number] | | LABORATORY | | + + + + + + + + | Specimen | + + | | + + + + + + + | Performing | Address | City/State/Zipcode | Phone Number | | Organization | | | | + + + + + | [facility] | [address] | [place], [place] | [phone] | | [facility] | | [address] | | | - LABORATORY | | | | + + + + + | [facility] | [address] | [place], [place] | | | [facility] | | [address], [facility] | | | - LABORATORY [...] | MEDICAL | | | | [place] [address] | | CENTER - | | | | CLIA: [id number] | | LABORATORY | | + + + + + + + + | Specimen | + + | | + + + + + + + | Performing | Address | City/State/Zipcode | Phone Number | | Organization | | | | + + + + + | [facility] | [address] | [place], [place] | [phone] | | [facility] | | [address] | | | - LABORATORY | | | | + + + + + | [facility] | [address] | [place], [place] | | | [facility] | | [id number] [place] [address] | | | - LABORATORY | | [...] | CENTER - | | | | [place] [address] | | LABORATORY | | | | CLIA: [id number] | | | | + + + + + + + + | Specimen | + + | | + + + + + + + | Performing | Address | City/State/Zipcode | Phone Number | | Organization | | | | + + + + + | [facility] | [address] | [place], [place] | [phone] | | [facility] | | [address] | | | - LABORATORY | | | | + + + + + | [facility] | [address] | [place], [place] | | | [facility] | | [address] | | | - LABORATORY | [...] MEDICAL | | | | [place] [address] | | CENTER - | | | | CLIA: [id number] | | LABORATORY | | + + + + + + | MEAT PASSER | 0.4Comment: Negative | <1.0 AI | [facility] | | | Autoantibod | Testing Performed: | | [facility] | | | y | [facility], [address], | | MEDICAL | | | | [place] [address] | | CENTER - | | | | CLIA: [id number] | | LABORATORY | | + + + + + + | SMRNP | <0.2Comment: Negative | <1.0 AI | [facility] | | | Autoantibod | Testing Performed: | | [facility] | | | y | [place], [address], | | MEDICAL | | | | [place] [address] | | CENTER - | | | | RUFUSIA: [id number] | | LABORATORY | | + + + + + + + + | Specimen | + + | | + + + + + + + | Performing | Address | City/[facility] | Phone Number | | Organization | | | | + + + + + | [facility] | [address] | [place] | [phone] | | [facility] | | [address] | | | - LABORATORY | | | | + + + + + | [facility] | [address] | [place], [place] | | | [facility] | | [address], [facility] | | | - LABORATORY [...] | | | INTERVAL: Aldolase | | [facility] | | | | Access complete set of | | MEDICAL | | | | age- and/or | | CENTER - | | | | gender-specific | | LABORATORY | | | | reference intervals | | | | | | for this test in the | | | | | | [facility] Test | | | | | | Directory ([employer]). | | | | | | Testing Performed: | | | | | | M[facility], [address], | | | | | | [place], [place] | | | | | | [address] CLIA: | | | | | | [id number] | | | | + + + + + + + + | Specimen | + + | | + + + + + + + | Performing | Address | City/State/Zipcode | Phone Number | | Organization | | | | + + + + + | [facility] | [address] | [place], [place] | [phone] | | [facility] | | [address] | | | - LABORATORY | | | | + + + + + | [facility] | [address] | [place], [place] | | | [facility] | | [id number] [place] [address] | | | - LABORATORY | | [...] | | ARACELI | | | | [address] [place] [place], [place] | | MEDICAL | | | | [address] CLIA: [id number] | | CENTER - | | | | | | LABORATORY | | + + + + + + + + | Specimen | + + | | + + + + + + + | Performing | Address | City/State/Zipcode | Phone Number | | Organization | | | | + + + + + | [facility] | [address] | [place] | [phone] | | [facility] | | [address] | | | - LABORATORY | | | | + + + + + | [facility] | [address] | [place], [place] | | | [facility] | | [id number] [place] [address] | | | - LABORATORY | | [...] [address] | [place] | [phone] | | [facility] | | [address] | | | - LABORATORY | | | | + + + + + | [facility] | [address] | [place] | | | [facility] | | [address], [facility] | | | - LABORATORY [...] | Performed: [facility], [address] | | | | [place] [address], [place] | | MEDICAL | | | | [id number]: [id number] | | CENTER - | | | [...] + | [facility] | [address] | [place], [place] | [phone] | | [facility] | | [address] | | | - LABORATORY | | | | + + + + + | [facility] | [address] | [place], [place] | | | [facility] | | [address] | | | - [...] | + + + + + | [facility] | [address] | [place] | [phone] | | [facility] | | [address] | | | - LABORATORY | | | | + + + + + | [facility] | [address] | [place], [place] | | | [facility] | | [id number] [place] [address] | | | - LABORATORY | | | | + + + + + documented in this encounter Visit Diagnoses + + | Diagnosis | + + | Pulmonary hypertension (HCC) Other chronic pulmonary heart diseases | + + documented in this encounter"
--- OUTSIDE RECORDS SUMMARY | ~2020-07-11 | XMS | Encounter Summary ---
Demographics + + + | Address | [address] | | | [place] [address] | + + + | Home Phone [...] + | [employer] | ECON | [phone] | | | | | Unknown | | + + + + + Care Team Providers + +------+ + | Care Credit Balance Specialist Name | Role | Phone | [...] | | | | | | | SC XCAPSL | | | | | | [...] + | 05/22/ | Anesthesia | [facility] | Scout Lagunas, | | | 2019 | Event | MED CTR OR INTRA OP | MD [address] | | | | | [address] | [place] | | | | | [place] | [address] | | | | | [address] | | | | | | [phone] | | | +--------+ + + + [...] 05/22/20 1521 by | | ace | [id number]-kft-[id number] catheter system; | Martha Rosario, | Glory [...] EVALUATION Margarita Rowley 54 y.o. female 1965 [id number] Procedure(s) RIGHT EXTRACTION CATARACT W/ OR W/O [...] Scout Lagunas MD 05/22/2020 3:20 PM PDT [facility] MD at 05/01 3:20 PM PDTAnesthesia Preprocedure Evaluation - Scout Lagunas MD - 05/22/2020 9: 25 AM PDT ANESTHESIA PREANESTHESIA EVALUATION Margarita Rowley 54 y.o. female 1965 [id number] Procedure(s): RIGHT EXTRACTION CATARACT W/ OR W/O LENS IMPLANT (Right Eye) Medical,anesthesia, drug, allergy histories reviewed, NPO status verified. Review of Systems / Med History Anesthesia History Emergently intubated in [place] 01/2020 -- videolaryngoscope used witho ut incident.. [...] NOTE Margarita Rowley 54 y.o. female 1965 [id number] RIGHT EXTRACTION CATARACT W/ OR W/O LENS [...] Scout Lagunas MD 05/22/2020 3:18 PM PDT [facility] Lag[facility] MD at [...] | | | | | [place] [address] | | | | | | [phone] | | | | | | | | +--------+ + + + + | 07/23/ | Office | Pulmonology | Helen Astudillo | | | 2019 | Visit | | MD [address] | | | | | | [address] [place] | | | | | | [place] [address] | | | | | | [phone] | | | | | | | [...]
--- OUTSIDE RECORDS SUMMARY | ~2020-07-11 | XMS | Encounter Summary ---
Demographics + + + | Address | [address] | | | [place] [address] | + + + | Home Phone [...] + | [employer] | ECON | [phone] | | | | | Unknown | | + + + + + Care Team Providers + +------+ + | Care Alining Inspector Name | Role | Phone | [...] | apnea (adult) | | | | [place], | | (pediatric) (Primary | | | | [place] [address] | | Dx) | | | | [phone] | | | +--------+ + + + [...] | | | | | [place] [address] | | | | | | [phone] | | | | | | | | +--------+ + + + + | 07/23/ | Office | Pulmonology | Helen Astudillo | | | 2019 | Visit | | MD Vikash [address] | | | | | | [address] [place] | | | | | | [place] [address] | | | | | | [phone] | | | | | | | | +--------+ + + + + documented as of this encounter Visit Diagnoses + + | Diagnosis | + + | Obstructive sleep apnea (adult) (pediatric) - Primary | + + documented in this encounter"
--- OUTSIDE RECORDS SUMMARY | ~2020-07-11 | XMS | Encounter Summary ---
Demographics + + + | Address | [address] | | | [place] [address] | + + + | Home Phone [...] + | [employer] | ECON | [phone] | | | | | Unknown | | + + + + + Care Team Providers + +------+ + | Care Training Administrator Name | Role | Phone | [...] Farrar MD | | | | | [place], | | | | | | [place] [address] | | | | | | [phone] | | | +--------+ + + + [...] her but her records are available in [employer] or we'd be happy to assist [facility]. Adnra will let us know if they need our assistance. elephone Encounter - Nickie Noriega RN - 06/30/2016 2:21 PM PDTKrjennifer from GI left message with PSR requesting surgical clearance prior to upper endoscopy and colonoscopy. Attempted to call her back but call wou ld not go through at [phone]. documented in this encounter Plan of Treatment +--------+ + + + + | Date | Type | Specialty | Care Team | Description | +--------+ + + + + | 07/23/ | Appointment | Pulmonology | Helen Astudillo | | 2019 | | | MD [address] | | | | | | [address] [facility] | | | | | | [place] [address] | | | | | | [phone] | | | | | | | | +--------+ + + + + | 07/23/ | Office | Pulmonology | Helen Astudillo | | 2019 | Visit | | MD [address] | | | | | | [address] | | | | | | [place] [address] | | | | | | [phone] | | | | | | | | +--------+ + + + + documented as of this encounter Visit Diagnoses Not on filedocumented in this encounter"
--- OUTSIDE RECORDS SUMMARY | ~2020-07-11 | XMS | Encounter Summary ---
Demographics + + + | Address | [address] | | | [place] [address] | + + + | Home Phone [...] Author + + + | Author | [facility] | + + + | Organization | [facility] | + + + | Address | Unknown | + + + | Phone | Unavailable | + + + Support + + +---------+ + | Name | Relationship | Address | Phone | + + +---------+ + | Lidia Thibodeuax | [place] | Unknown | | + + +---------+ + Care Team Providers + +------+ + | Care Precision Grinder Name | Role | Phone | + +------+ + | Gela Trimble SEED TESTER | PCP | | + +------+ + Encounter Details +--------+ + + + + | Date | Type | Department | Care Team | Description | +--------+ + + + + | 05/17/ | Dampener Operator | Pulmonary & | Alexander Hays MD | Pulmonary | | 2012 | | Critical Care | [address] | hypertension (HCC) | | | | Medicine at | [facility], | (Primary Dx) | | | | [facility] | [place] [address] | | | | | [address] | [phone] | | | | | [address] | | | | | | Pavilion, 3rd Floor | | | | | | [place], [place] | | | | | | [address] | | | | | | [phone] | | | +--------+ + + + [...]
--- OUTSIDE RECORDS SUMMARY | ~2020-07-11 | XMS | Encounter Summary ---
Demographics + + + | Address | [address] | | | [place] [address] | + + + | Home Phone [...] + | [employer] | ECON | [phone] | | | | | Unknown | [...] [address] | | | | | [address] [place], [place] | [place], [place] | | | | | [address] | [address] | | | | | [phone] | | | +--------+--------+ + + + [...] | | | | | [place] [address] | | | | | | [phone] | | | | | | | | +--------+ + + + + | 07/23/ | Office | Pulmonology | Helen Astudillo | | | 2019 | Visit | | MD [address] | | | | | | [address] | | | | | | [place] [address] | | | | | | [phone] | | | | | | | | +--------+ + + + + documented as of this encounter Visit Diagnoses Not on filedocumented in this encounter"
--- OUTSIDE RECORDS SUMMARY | ~2020-07-11 | XMS | Encounter Summary ---
Demographics + + + | Address | [address] | | | [place] [address] | + + + | Home Phone [...] + | [employer] | ECON | [phone] | | | | | Unknown | | + + + + + Care Team Providers + +------+ + | Care Lead Portfolio Manager Name | Role | Phone [...] | | | | | pulmonary | LEGAL COUNSEL [address] | | | | | hypertension | [address] | [place], [place] | | | | | [facility] | [place], | [address] | | | | | Procedures | [place] [address] | Phone: | | | | | F/U | Phone: | [phone] | | | | | | [phone] | Fax: | | | | | | Fax: | [phone] | | | | | | [phone] | | +--------+--------+ + + + + Encounter Details +--------+---------+ + + + | Date | Type | Department | Care Team | Description | +--------+---------+ + + + | 02/01/ | Office | [facility] | Scout Arthur, | Primary pulmonary | | 2017 | Visit | PULMONARY [address] | [address] | hypertension (HCC) | | | | [place], | [place] [address] | (Primary Dx); | | | | [place] [address] | [phone] | Chronic respiratory | | | | [phone] | | failure with hypoxia | | [...] on medication and oxygen and BiPAP at [facility] HPI: I am able to reconstruct this patient's history with the benefit of Dr. Elvi rivera's pulmonary clinic notes from [facility] in [facility] from May 17, 2016. Today, [...] was apparently diagnosed August 08, 2013 in [place] at [facility] on 2 L with right atrial [...] July 2015 chest x-ray. An echocardiogram from [facility] done March 09, 2016, a little b [...] be seeing her pulmonary hypertension specialist in [place] before then. The note from 2016 was very helpful. Over half the session was spent in counseling. 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
--- OUTSIDE RECORDS SUMMARY | ~2020-07-11 | XMS | Encounter Summary ---
Demographics + + + | Address | [address] | | | [place] [address] | + + + | Home Phone | | + + + | Preferred Language | Unknown | + + + | Marital Status | Single | + + + | Orthodoxy Affiliation | NRP | + + + [...] Team Providers + +------+ + | Care Market Master Name | Role | Phone | [...] | | | Medicine at | [facility], | | | | | [facility] | [place] [address] | | | | | [address] | [phone] | | | | | [address] [facility] | | | | | | Pavilion, 3rd Floor | | | | | | [place], [place] | | | | | | [address] | | | | | | [phone] | | | +--------+ + + + [...] spoke with Dr. Chapo Costello DO at [facility] in [facility]. Ms. [place] is a 54-year-old lady wi th known pulmonary artery hypertension who gets healthcare through [facility] for pulmo nary artery hypertension and was last seen in August 2019. She presented to [facility] with three days history of cold [...] pneumonia as well as oseltamivir. 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 abg 7.43, 45, 62 on 70% of FIO2 and CPAP. They are going to diurese patient . I requested that Dr. Costello get in touch with [facility] to see if they would acc ept [...]
--- OUTSIDE RECORDS SUMMARY | ~2020-07-11 | XMS | Encounter Summary ---
Demographics + + + | Address | [address] | | | [place] [address] | + + + | Home Phone [...] + | [employer] | ECON | [phone] | | | | | Unknown | | + + + + + Care Team Providers + +------+ + | Care Cleaners Name | Role | Phone | + [...] + + | 12/26/ | Office | [facility] | Jacky Calderon PA | Primary central | | 2014 | Visit | SLEEP DISORDER [address] | [address] | sleep apnea (Primary | | | | [address] [place] | [place] | Dx) | | | | [place] [address] | [address] | | | | | [phone] | | | +--------+---------+ + + + [...] Quattro FX full face mask obtained from: [facility] pressure: 19/5 cm Nights using BiPAP: 35/36 [...] a prescription to [facility] in [place] for a change in her pressure s etting to 16/5 cm with backup rate of 8 and 5 L/min oxygen bled into the circuitry. She is to continue with BiPAP at these settings. I will follow up with her in 1 month, sooner prn. Thirty minutes were spent [id number], with the majority of time spent in counseling. Jacky Calderon PA-C cc: BRUCE Beal MD documented in this enco unter Miscellaneous Notes Miscellaneous - ALBA CELESTELA - 12/26/2013 12:00 AM PST documented in [...] | | | | | [place] [address] | | | | | | [phone] | | | | | | | | +--------+ + + + + | 07/23/ | Office | Pulmonology | Helen Astudillo | | | 2019 | Visit | | MD Vikash [address] | | | | | | [address] [place] | | | | | | [place] [address] | | | | | | [phone] | | | | | | | | +--------+ + + + + documented as of this encounter Visit Diagnoses + + | Diagnosis | + + | Primary central sleep apnea - Primary | + + documented in this encounter"
--- OUTSIDE RECORDS SUMMARY | ~2020-07-11 | XMS | Encounter Summary ---
Demographics + + + | Address | [address] | | | [place] [address] | + + + | Home Phone [...] + | [employer] | ECON | [phone] | | | | | Unknown | | + + + + + Care Team Providers + +------+ + | Care Belt Maker Helper Name | Role | Phone | + +------+ + | Yuin Shrestha | PCP | | + +------+ + Encounter Details +--------+ + + + + | Date | Type | Department | Care Team | Description | +--------+ + + + + | 01/04/ | Orders Only | [facility] [place] | [facility], | Dysphagia | | 2016 | | GASTROENTEROLOGY | BRITTANY Maddox [address] | | | | | [address] [place] | [address] | | | | | [address] [place], [place] | [place], [place] | | | | | [address] | [address] | | | | | [phone] | | | +--------+ + + + [...] | | | | | [place] [address] | | | | | | [phone] | | | | | | | | +--------+ + + + + | 07/23/ | Office | Pulmonology | Helen Astudillo | | | 2019 | Visit | | MD [address] | | | | | | [address] [place] | | | | | | [place] [address] | | | | | | [phone] | | | | | | | | +--------+ + + + + documented as of this encounter Visit Diagnoses + + | Diagnosis | + + | Dysphagia Dysphagia, unspecified | + + documented in this encounter"
--- OUTSIDE RECORDS SUMMARY | ~2020-07-11 | XMS | Encounter Summary ---
Demographics + + + | Address | [address] | | | [place] [address] | + + + | Home Phone | | + + + | Preferred Language | Unknown | + + + | Marital Status | Single | + + + | Mu-Ism Affiliation | NRP | + + + | Race | White | + + + | Ethnic Group | Not or | + + + Author + + + | Author | [facility] | + + + | Organization | [facility] | + + + | Address | Unknown | + + + | Phone | Unavailable | + + + Support + + +---------+ + | Name | Relationship | Address | Phone | + + +---------+ + | Lidia Thibodeaux | ECON | Unknown | | + + +---------+ + Care Team Providers + +------+ + | Care Vamp Throater Name | Role | Phone | + [...] [address] | | | | | | [place], [place] | | | | | | [address] | | | +--------+ + + + [...]
--- OUTSIDE RECORDS SUMMARY | ~2020-07-11 | XMS | Encounter Summary ---
Demographics + + + | Address | [address] | | | [place] [address] | + + + | Home Phone [...] + | [employer] | ECON | [phone] | | | | | Unknown | | + + + + + Care Team Providers + +------+ + | Care Panel Gluer Name | Role | Phone | + [...] [place] | | | | | [address] | [address] | | | | | [phone] | [phone] | | | | | | | [...] | | | | | [place] [address] | | | | | | [phone] | | | | | | | | +--------+ + + + + | 07/23/ | Office | Pulmonology | Helen Astudillo | | | 2019 | Visit | | MD Joey Su[address] | | | | | | [address] [place] | | | | | | [place] [address] | | | | | | [phone] | | | | | | | | +--------+ + + + + documented as of this encounter Visit Diagnoses Not on filedocumented in this encounter"
--- OUTSIDE RECORDS SUMMARY | ~2020-07-11 | XMS | Encounter Summary ---
Demographics + + + | Address | [address] | | | [place] [address] | + + + | Home Phone [...] + | [employer] | ECON | [phone] | | | | | Unknown | | + + + + + Care Team Providers + +------+ + | Care Inside Sales Advertising Executive Name | Role | Phone | [...] | pulmonary heart | | | | [place], | | diseases (HCC) | | | | [place] [address] | | (Primary Dx); | | | | [phone] | | Chronic airway | | | [...] | | | | | [place] [address] | | | | | | [phone] | | | | | | | | +--------+ + + + + | 07/23/ | Office | Pulmonology | Helen Astudillo | | | 2019 | Visit | | MD Joey Suh W | | | | | | [address] | | | | | | [place] [address] | | | | | | [phone] | | | | | | | [...]
--- OUTSIDE RECORDS SUMMARY | ~2020-07-11 | XMS | Encounter Summary ---
Demographics + + + | Address | [address] | | | [place] [address] | + + + | Home Phone [...] + | [employer] | ECON | [phone] | | | | | Unknown | | + + + + + Care Team Providers + +------+ + | Care Top Precipitator Operator Helper Name | Role | Phone | + +------+ + PCP | Unavailable | + +------+ + Encounter Details +--------+ + + + + | Date | Type | Department | Care Team | Description | +--------+ + + + + | 04/06/ | Hospital | [facility] | Conversion | | | 2011 | Encounter | [facility] | Transaction, | | | | | [facility] | Provider Unknown | | | | | [address] [facility], | | | | | | [place] [address] | (Fax) | | | | | [phone] | | | +--------+ + + + [...] | | | | | [place] [address] | | | | | | [phone] | | | | | | | | +--------+ + + + + | 07/23/ | Office | Pulmonology | Helen Astudillo | | | 2019 | Visit | | MD Joey Suh W | | | | | | [address] | | | | | | [place] [address] | | | | | | [phone] | | | | | | | | +--------+ + + + + documented as of this encounter Visit Diagnoses Not on filedocumented in this encounter"
--- OUTSIDE RECORDS SUMMARY | ~2020-07-11 | XMS | Encounter Summary ---
Demographics + + + | Address | [address] | | | [place] [address] | + + + | Home Phone [...] + | [employer] | ECON | [phone] | | | | | Unknown | | + + + + + Care Team Providers + +------+ + | Care Shaker Repairer Name | Role | Phone | [...] | | | | | | [place] [address] | | | | | | [phone] | | | +--------+ + + + [...] | | | | | [place] [address] | | | | | | [phone] | | | | | | | | +--------+ + + + + | 07/23/ | Office | Pulmonology | Helen Astudillo | | | 2020 | Visit | | MD Vikash [address] | | | | | | [address] | | | | | | [place] [address] | | | | | | [phone] | | | | | | | | +--------+ + + + + documented as of this encounter Visit Diagnoses Not on filedocumented in this encounter"
--- OUTSIDE RECORDS SUMMARY | ~2020-07-11 | XMS | Encounter Summary ---
Demographics + + + | Address | [address] | | | [place] [address] | + + + | Home Phone [...] + | [employer] | ECON | [phone] | | | | | Unknown | | + + + + + Care Team Providers + +------+ + | Care Pre Sales Technical Consultant Name | Role | Phone | + +------+ + | Yuni Shrestha | PCP | | + +------+ + Encounter Details +--------+ + + + + | Date | Type | Department | Care Team | Description | +--------+ + + + + | 06/30/ | Abstract | [facility] [place] | [facility], | | | 2015 | | GASTROENTEROLOGY | BRITTANY Maddox [address] | | | | | [address] | [address] | | | | | [address] [place], [place] | [place], [place] | | | | | [address] | [address] | | | | | [phone] | | | +--------+ + + + [...] | | | | | | [place] [address] | | | | | | [phone] | | | | | | | | +--------+ + + + + | 07/23/ | Office | Pulmonology | Helen Astudillo | | | 2019 | Visit | | MD Joey Su[address] | | | | | | [address] | | | | | | [place] [address] | | | | | | [phone] | | | | | | | [...]
--- OUTSIDE RECORDS SUMMARY | ~2020-07-11 | XMS | Encounter Summary ---
Demographics + + + | Address | [address] | | | [place] [address] | + + + | Home Phone [...] + | [employer] | ECON | [phone] | | | | | Unknown | | + + + + + Care Team Providers + +------+ + | Care Energy Systems Engineer Name | Role | Phone [...] Farrar MD | | | | | [place], | | | | | | [place] [address] | | | | | | [phone] | | | +--------+--------+ + + + [...] | | | | | | [place] [id number] | | | | | | [phone] | | | | | | | | +--------+ + + + + | 07/23/ | Office | Pulmonology | Helen Astudillo | | | 2019 | Visit | | MD Joey Su[address] W | | | | | | [address] | | | | | | [place] [id number] | | | | | | [phone] | | | | | | | [...]
--- OUTSIDE RECORDS SUMMARY | ~2020-07-11 | XMS | Encounter Summary ---
Demographics + + + | Address | [address] | | | [place] [address] | + + + | Home Phone [...] + | [employer] | ECON | [phone] | | | | | Unknown | | + + + + + Care Team Providers + +------+ + | Care Metal Cutter Name | Role | Phone | [...] | Jacky Calderon | | | | Product Distribution Specialist / | Obstructive | Shanice Paez, | D, PA [address] | | | | Sleep | sleep apnea | [address] | [place] | | | | Medicine | (adult) | [address] | [place], | | | | | (pediatric) | [place], | [place] [address] | | | | | 2 mo cpap | [place] | Phone: | | | | | follow up, | [address] | [phone] | | | | | bring | Phone: | Fax: | | | | | equip/AO- | [phone] | [phone] | | | | | new machine | Fax: | | | | | | Procedures | [phone] | | | | | | 05/30 [...] + + | 04/16/ | Office | [facility] | Jacky Calderon PA | Primary central | | 2019 | Visit | SLEEP DISORDER [address] | [address] | sleep apnea (Primary | | | | [address] [place] | [place], [place] | Dx) | | | | [place] [address] | [address] | | | | | [phone] | | | +--------+---------+ + + + [...] visit: 06/14/2018 date of polysomnography: 03/13/2013 at [facility] [...] Assessment: Problem #1: PRIMARY CENTRAL SLEEP APNEA ([id number]-V16.31) This is controlled with BiPAP and oxygen [...] | | | | | | [place] [address] | | | | | | [phone] | | | | | | | | +--------+ + + + + | 07/23/ | Office | Pulmonology | Helen Astudillo | | | 2019 | Visit | | MD Joey [address] | | | | | | [address] [place] | | | | | | [place] [address] | | | | | | [phone] | | | | | | | | +--------+ + + + + documented as of this encounter Visit Diagnoses + + | Diagnosis | + + | Primary central sleep apnea - Primary | + + documented in this encounter"
--- OUTSIDE RECORDS SUMMARY | ~2020-07-11 | XMS | Encounter Summary ---
Demographics + + + | Address | [address] | | | [place] [address] | + + + | Home Phone [...] + | [employer] | ECON | [phone] | | | | | Unknown | | + + + + + Care Team Providers + +------+ + | Care Laborer [place] Name | Role | Phone | [...] | | | CENTER [address] | [facility] | | | | | [address] [place], [place] | [place] [address] | | | | | [address] | [phone] | | | | | [phone] | | | +--------+ + + + [...] | | | | | | [place] [address] | | | | | | [phone] | | | | | | | | +--------+ + + + + | 07/23/ | Office | Pulmonology | Helen Astudillo | | | 2019 | Visit | | MD Joey [address] | | | | | | [address] [place] | | | | | | [place] [address] | | | | | | [phone] | | | | | | | | +--------+ + + + + documented as of this encounter Visit Diagnoses Not on filedocumented in this encounter"
--- OUTSIDE RECORDS SUMMARY | ~2020-07-11 | XMS | Encounter Summary ---
Demographics + + + | Address | [address] | | | [place] [address] | + + + | Home Phone [...] + | [employer] | ECON | [phone] | | | | | Unknown | | + + + + + Care Team Providers + +------+ + | Care Shop Tailor Name | Role | Phone | + [...] + + | 07/26/ | Office | [facility] | Jacky Calderon PA | Primary central | | 2017 | Visit | SLEEP DISORDER [address] | [address] | sleep apnea (Primary | | | | [address] [place] | [place], [place] | Dx) | | | | [place] [address] | [address] | | | | | [phone] | | | +--------+---------+ + + + [...] AM ANDREYGo to [facility] in [facility] to get a Respironics AmaraView full face mask. Change to [facility] in [place], if not able to get this mask at [facility] in [facility] n. Wear BiPAP 100% of the time asleep. documented in this encounter Progress Notes Jacky Calderon PA - 07/26/2017 10:30 AM PDT Subjective: Patient ID: Margarita Rowley is a 51 y.o. female. HPI last office visit: 07/23/2016 date of polysomnography: 03/13/2013 at [facility] AHI: 64.2 O2%: n/a Machine type: Respironics BiPAP Auto Mask type: ResMed Quattro FX full face mask DME: [facility] in [place] pressure: 16/5 cm with backup rate of [...] She may be interested in us ing [facility] in [place] for her supplies. She says she has had some difficulty with gettin g supplies from [facility] in [place]. She is also napping during the day [...] Assessment: Problem #1: PRIMARY CENTRAL SLEEP APNEA ([id number]) This is controlled with BiPAP and oxygen [...] | | | | | | [address] [facility] | | | | | | [place] [address] | | | | | | [phone] | | | | | | | | +--------+ + + + + | 07/23/ | Office | Pulmonology | Helen Astudillo | | | 2019 | Visit | | MD Vikash [address] | | | | | | [address] | | | | | | [place] [address] | | | | | | [phone] | | | | | | | | +--------+ + + + + documented as of this encounter Visit Diagnoses + + | Diagnosis | + + | Primary central sleep apnea - Primary | + + documented in this encounter"
--- OUTSIDE RECORDS SUMMARY | ~2020-07-11 | XMS | Encounter Summary ---
Demographics + + + | Address | [address] | | | [place] [address] | + + + | Home Phone [...] + | [employer] | ECON | [phone] | | | | | Unknown | | + + + + + Care Team Providers + +------+ + | Care Travel Professional Name | Role | Phone | [...] Farrar MD | | | | | [place], | | | | | | [place] [address] | | | | | | [phone] | | | +--------+ + + + [...] orders w ere confirmed with Suma at [facility] (her boss) on 12/27/13. She also had questions regar ding the oxygen equipment. I directed her to call [facility] [place] and have them re view Jacky Lancasteram-PAC's orders from 12/26/13 visit and also to [...] | | | | | [place] [address] | | | | | | [phone] | | | | | | | | +--------+ + + + + | 07/23/ | Office | Pulmonology | Helen Astudillo | | | 2019 | Visit | | MD Joey [address] | | | | | | [address] [place] | | | | | | [place] [address] | | | | | | [phone] | | | | | | | | +--------+ + + + + documented as of this encounter Visit Diagnoses Not on filedocumented in this encounter"
--- OUTSIDE RECORDS SUMMARY | ~2020-07-11 | XMS | Encounter Summary ---
Demographics + + + | Address | [address] | | | [place] [address] | + + + | Home Phone [...] + | [employer] | ECON | [phone] | | | | | Unknown | | + + + + + Care Team Providers + +------+ + | Care Dam Operator Name | Role | Phone | [...] | | | | [place], | [place] [address] | Obstructive sleep | | | | [place] [address] | [phone] | apnea (adult) | | | | [phone] | | (pediatric) | +--------+ + + [...] | | | | | [place] [address] | | | | | | [phone] | | | | | | | | +--------+ + + + + | 07/23/ | Office | Pulmonology | Helen Astudillo | | | 2019 | Visit | | MD Joey Su[address] | | | | | | [address] [place] | | | | | | [place] [address] | | | | | | [phone] | | | | | | | | +--------+ + + + + documented as of this encounter Visit Diagnoses + + | Diagnosis | + + | Obstructive sleep apnea - Primary Obstructive sleep apnea (adult) (pediatric) | + + | Obstructive sleep apnea (adult) (pediatric) | + + documented in this encounter"
[~2020-07-11 10:21] MED LIST changes: +SINGULAIR10 MG PO
--- NOTE | 2020-07-12 15:10 | EKG ---
[facility] [address] [facility] [place], [place] [address] Signed Normal sinus rhythm ST \T\ T wave abnormality, consider anterior ischemia Prolonged QT Abnormal ECG When compared with ECG of 02-MAY-2020 17:45, Nonspecific T wave abnormality now evident in Lateral leads Confirmed by SHAHZAD MONACO MD ([id number]) on 07/12/2020 3:10:42 PM Electronically Signed By: SHAHZAD MONACO MD 07/12/20 1510 PATIENT NAME: KEO BARRAZA Electrocardiogram DATE OF : 61 PHYSICIAN: SHAHZAD MONACO MD REPORT #: [id number] REPORT IS CONFIDENTIAL AND NOT TO BE RELEASED WITHOUT AUTHORIZATION
[2020-07-13] MEDS ORDERED: DOXYCYCLINE HY100 MG PO (21:01)
== END 2020-07-11 14:06 | disposition home or self-care (01) ==
LOC: ED 10:21
DX: I27.20 Pulmonary hypertension, unspecified (principal); R78.9 Finding of unspecified substance, not normally found in blood; F31.9 Bipolar disorder, unspecified; F43.10 Post-traumatic stress disorder, unspecified; E03.9 Hypothyroidism, unspecified; E66.9 Obesity, unspecified; I11.0 Hypertensive heart disease with heart failure; I50.9 Heart failure, unspecified; G47.30 Sleep apnea, unspecified; Z87.891 Personal history of nicotine dependence; Z88.8 Allergy status to other drugs, medicaments and biological substances; Z88.2 Allergy status to sulfonamides; Z88.1 Allergy status to other antibiotic agents; Z88.0 Allergy status to penicillin; Z79.82 Long term (current) use of aspirin; Z79.899 Other long term (current) drug therapy
CPT/HCPCS: 36600; 71046; 80048; 82803; 84484; 85025; 93005; 93010; 99285-25

== ENCOUNTER 2020-07-30 09:09 | Inpatient (IN) | payer OTHER ==
[~2020-07-30] VITALS: Ht 157.5 cm; Wt 96.2 kg
--- OUTSIDE RECORDS SUMMARY | ~2020-07-30 | XMS | Encounter Summary ---
Demographics + + + | Address | [address] | | | [place] [address] | + + + | Home Phone | | + + + | Preferred Language | Unknown | + + + | Marital Status | Single | + + + | Yarsanism Affiliation | [id number] | + + + | Race | White | + + + | Ethnic Group | Not or | + + + Author + + + | Author | [facility] | | | and [place] | + + + | Organization | [facility] | | | and [place] | + + + | Address | Unknown | + + + | Phone | Unavailable | + + + Support + + + + + | Name | Relationship | Address | Phone | + + + + + | [employer] | ECON | [id number] | | | | | Unknown | | + + + + + Care Team Providers + +------+ + | Care Master Electrician Name | Role | Phone | + +------+ + | Yuni Shrestha | PCP | | + +------+ + Reason for Visit + + + | Reason | Comments | + + + | Follow-up | barium swallow | + + + Evaluate & Treat (Routine) +--------+--------+ + + + + | Status | Reason | Specialty | Diagnoses / | Referred By | Referred To | | | | | Procedures | Contact | Contact | +--------+--------+ + + + + | Closed | | Gastroenterol | Diagnoses | Fady, | Layla, | | | | ogy | Dysphagia, | Yuni Hanh, | Varsha, | | | | | pharyngeal | LICENSED ACUPUNCTURIST [address] | LICENSED ACUPUNCTURIST [address] | | | | | phase | [address] | [address] | | | | | Procedures | [place], | [address] | | | | | Office Visit | [place] [address] | [place], | | | | | | Phone: | [place] [address] | | | | | | [phone] | Phone: | | | | | | Fax: | [phone] | | | | | | [phone] | Fax: | | | | | | | [phone] | +--------+--------+ + + + + Encounter Details +--------+---------+ + + + | Date | Type | Department | Care Team | Description | +--------+---------+ + + + | 06/30/ | Office | [facility] | [place], | Gastroesophageal | | 2016 | Visit | GASTROENTEROLOGY | [address] | reflux disease, | | | | [address] | [address] | esophagitis presence | | | | [address] [place], [place] | [place], [place] | not specified | | | | [address] | [address] | (Primary Dx); | | | | [phone] | | Esophageal | | | | | | dysmotility; | | | | | | Dependence on | | | | | | continuous | | | | | | supplemental oxygen; | | | | | | Pulmonary | | | | | | hypertension (HCC) | +--------+---------+ + + + Social History + + [...] + + documented as of this encounter Last Filed Vital Signs + + + + + | Vital Sign | Reading | Time Taken | Comments | + + + + + | Blood Pressure | 96/72 | 06/30/2016 10:51 AM | | | | | PDT | | + + + + + | Pulse | 67 | 06/30/2016 10:51 AM | | | | | PDT | | + + + + + | Temperature | 36.7 C (98.1 F) | 06/30/2016 10:51 AM | | | | | PDT | | + + + + + | Respiratory Rate | 16 | 06/30/2016 10:51 AM | | | | | PDT | | + + + + + | Oxygen Saturation | 92% | 06/30/2016 10:51 AM | | | | | PDT | | + + + + + | Inhaled Oxygen | - | - | | | Concentration | | | | + + + + + | Weight | 94.3 kg (208 lb) | 06/30/2016 10:51 AM | | | | | PDT | | + + + + + | Height | - | - | | + + + + + | Body Mass Index | 42.01 | 02/03/2016 3:31 PM | | | | | PDT | | + + + + + documented in this encounter Patient Instructions Patient Instructions Varsha Rich ARNP - 06/30/2016 11:15 AM PDTMay use Pepcid in a ddition to omeprazole as needed for heartburn or reflux. Increase omeprazole to twice daily. Will check with pulmonology regarding endoscopies. documented in this encounter Progress Notes Varsha Rich ARNP - 06/30/2016 11:07 AM PDTFormatting of this note might be differe nt from the original. Margarita Rowley is a 50 y.o. female here for followup Barium swallow. History of present illness: Patient here following barium swallow. She was referred by pulmonology due to cough. She denies heartburn, reflux, abdominal pain, black stools, or dysphagia. Upon further que stioning, patient does note that she has intermittent episodes where when she drinks, she wi ll feel/taste and acid coming back up into her chest and throat. She sleeps at an incline due to respiratory issues. Main complains is related to oxygenatio n. States that her breathing can get "heavy". She is on continuous oxygen between 1-4 Liters . Allergies Allergen Reactions Food Hives and Other (See Comments) PEAS cause seizure and hives Erythromycin Other (See Comments) Metronidazole Other (See Comments) Penicillins Other (See Comments) Sulfa Antibiotics Other (See Comments) Past Medical History Diagnosis Date COPD (chronic obstructive pulmonary disease) ([facility]) moderate, FEV1 1.40 (59%) Pulmonary hypertension (HCC) severe, class 1, class 2, class 3 Bipolar disorder (HCC) PTSD (post-traumatic stress disorder) Osteoarthritis Obstructive sleep apnea AHI 64.2 Vitamin D deficiency GERD (gastroesophageal reflux disease) Hypothyroidism Seizure disorder (HCC) Developmental delay Hypoxemia on 2L at rest, 4L with exertion Female stress incontinence Pyelonephritis Hypertension Impulse control disorder Hyperlipidemia Obesity Alcohol abuse Cocaine abuse Past Surgical History Procedure Laterality Date Mouth surgery 2 teeth removed Cardiac catherization Upper gastrointestinal endoscopy 03-24-16 Esophagus barium swallow limited 5-17-16 Family History Problem Relation Age of Onset Tobacco Use Brother Alcohol abuse Brother Drug abuse Brother Mental illness Brother Tobacco Use Brother Alcohol abuse Brother Drug abuse Brother Mental illness Brother Tobacco Use Brother Alcohol abuse Brother Drug abuse Brother Tobacco Use Brother Alcohol abuse Brother Drug abuse Brother Tobacco Use Brother Alcohol abuse Brother Drug abuse Brother Social History Social History Marital Status: Single Spouse Name: N/A Number of Children: N/A Years of Education: N/A Occupational History Disabled. [employer] Social History Main Topics Smoking status: Former Smoker -- 1.00 packs/day for 20 years Types: Cigarettes Quit date: 12/15/2015 Smokeless tobacco: Never Used Alcohol Use: No Drug Use: No Sexual Activity: Not on file Other Topics Concern Not on file Social History Narrative Lives at [place]. Review of systems: Constitutional:Denies any fevers, chills, or unintentional weight loss. Respiratory: Complains of shortness of breath constant coughing and wheezing. Gastrointestinal:Negative except as stated above. Cardiovascular:Negative except as stated above. Physical exam: General: well developed, well nourished, in no acute distress, appears chronically ill is on [place] e oxygen Head: normocephalic and atraumatic Eyes: Sclera clear Mouth: MMM Lungs: Clear to auscultate bilaterally and throughout, diminished breath sounds throughout Heart: regular rate and rhythm Abdomen: Soft, tender to palpation over epigastric area, non distended, bowel tones positive bhargav es 4 quadrants, negative Martino's sign, negative rebound tenderness, no guarding, no hepatos plenomegaly palpated. Rectal: Will be done prior to procedure Msk: symmetrical with no deformity, with normal posture and gait, normal strength. Extremities: no clubbing, cyanosis, edema, or deformity noted Neurologic: no focal deficits, cranial nerves II-XII grossly intact Skin: intact without lesions or rashes. Psych: alert and cooperative; normal mood and affect; normal attention span and concentration. Barium Swallow 03/24/2016: Impression: -Small hiatal hernia -Fairly significant reflux up to the thoracic inlet which clears slowly due to the diminis hed secondary stripping waves. -Significant intermittent tertiary contractions noted. Esophageal dysmotility. Assessment 1. Gastroesophageal reflux disease, esophagitis presence not specified 2. Esophageal dysmotility 3. Dependence on continuous supplemental oxygen 4. Pulmonary hypertension (HCC) Plan: Patient should have an EGD to screen for Huynh's esophagus due to significant reflux seen on barium swallow. However, due to patient's pulmonary status, will check with pulmonology to ensure it is safe to proceed with endoscopic procedures. EGD would be done with an anesthesiologist. Patient has never had colonoscopy. Would recommend a colonoscopy at the same time as upper endoscopy. Highly encouraged patient to lose weight. This is the safest way for her to improve her re flux. Increased omeprazole to twice a day. May take Pepcid intermittently as needed for heartburn. Will follow up with results. Patient is to call with any question or concerns. Any fevers, chills, chest pain, SOB or other serious symptoms patient is to call the office or go to ER . Cc: VIKAS Galicia This note was dictated using voice recognition software. Please contact me if there are an y questions regarding its content. documented in t his encounter Plan of Treatment Not on filedocumented as of this encounter Procedures + +--------+ + + + | Procedure Name | Priori | Date/Time | Associated Diagnosis | Comments | | | ty | | | | + +--------+ + + + | LABS - EXTERNAL SCAN | | 06/10/2016 | | Results for this | | | | 12:00 AM | | procedure are in the | | | | PDT | | results section. | + +--------+ + + + | LABS - EXTERNAL SCAN | | 06/09/2016 | | Results for this | | | | 12:00 AM | | procedure are in the | | | | PDT | | results section. | + +--------+ + + + | LABS - EXTERNAL SCAN | | 06/08/2016 | | Results for this | | | | 12:00 AM | | procedure are in the | | | | PDT | | results section. | + +--------+ + + + | IMAGING REPORT - | | 03/24/2016 | | Results for this | | EXTERNAL SCAN | | 12:00 AM | | procedure are in the | | | | PDT | | results section. | + +--------+ + + + | IMAGING REPORT - | | 03/16/2016 | | Results for this | | EXTERNAL SCAN | | 12:00 AM | | procedure are in the | | | | PDT | | results section. | + +--------+ + + + documented in this encounter Results LABS - EXTERNAL SCAN (06/10/2016 12:00 AM PDT) + + + | Narrative | Performed At | + + + | Ordered by an | | | unspecified provider. | | + + + LABS - EXTERNAL SCAN (06/09/2016 12:00 AM PDT) + + + | Narrative | Performed At | + + + | Ordered by an | | | unspecified provider. | | + + + LABS - EXTERNAL SCAN (06/08/2016 12:00 AM PDT) + + + | Narrative | Performed At | + + + | Ordered by an | | | unspecified provider. | | + + + IMAGING REPORT - EXTERNAL SCAN (03/24/2016 12:00 AM PDT) + + + | Narrative | Performed At | + + + | Ordered by an | | | unspecified provider. | | + + + IMAGING REPORT - EXTERNAL SCAN (03/16/2016 12:00 AM PDT) + + + | Narrative | Performed At | + + + | Ordered by an | | | unspecified provider. | | + + + documented in this encounter Visit Diagnoses + + | Diagnosis | + + | Gastroesophageal reflux disease, esophagitis presence not specified - Primary | + + | Esophageal dysmotility Dyskinesia of esophagus | + + | Dependence on continuous supplemental oxygen | + + | Pulmonary hypertension (HCC) Other chronic pulmonary heart diseases | + + documented in this encounter
--- OUTSIDE RECORDS SUMMARY | ~2020-07-30 | XMS | Encounter Summary ---
Demographics + + + | Address | [address] | | | [place] [address] | + + + | Home Phone | | + + + | Preferred Language | Unknown | + + + | Marital Status | Single | + + + | Jew Affiliation | 1009 | + + + | Race | White | + + + | Ethnic Group | Not or | + + + Author + + + | Author | [facility] | | | and [place] | + + + | Organization | [facility] | | | and [place] | + + + | Address | Unknown | + + + | Phone | Unavailable | + + + Support + + + + + | Name | Relationship | Address | Phone | + + + + + | [employer] | ECON | [id number] | | | | | Unknown | | + + + + + Care Team Providers + +------+ + | Care Resident In Diagnostic Radiology Name | Role | Phone | + +------+ + | Yuni Shrestha | PCP | | + +------+ + Encounter Details +--------+ + + + + | Date | Type | Department | Care Team | Description | +--------+ + + + + | 08/21/ | Orders Only | [facility] | Tarah Nino, | GLORIA (obstructive | | 2015 | | PULMONARY [address] | RN | sleep apnea); | | | | [place], | | Hypoxemia | | | | [place] [address] | | | | | | [phone] | | | +--------+ + + + [...] filedocumented as of this encounter Visit Diagnoses + + | Diagnosis | + + | GLORIA (obstructive sleep apnea) Obstructive sleep apnea (adult) (pediatric) | + + | Hypoxemia | + + documented in this encounter"
--- OUTSIDE RECORDS SUMMARY | ~2020-07-30 | XMS | Clinical Summary ---
Demographics + + + | Address | [address] | | | [place] [address] | + + + | Home Phone | | + + + | Preferred Language | Unknown | + + + | Marital Status | Single | + + + | Religion Affiliation | NRP | + + + | Race | White | + + + | Ethnic Group | Not or | + + + Author + + + | Author | [facility] | + + + | Organization | [facility] | + + + | Address | Unknown | + + + | Phone | Unavailable | + + + Support + + +---------+ + | Name | Relationship | Address | Phone | + + +---------+ + | Lidia Thibodeaux | ECON | Unknown | | + + +---------+ + Care Team Providers + +------+ + | Care Websphere Process Server Developer Name | Role | Phone | + +------+ + | Yuni Shrestha | PCP | | + +------+ + Source Comments [facility] is fully live on both EpicCare Ambulatory and EpicCare InPatient.[facility] Allergies + + + + + + | Active Allergy | Reactions | Severity | Noted | Comments | | | | | Date | | + + + + + + | Erythromycin | | | 05/02/20 | | | | | | 13 | | + + + + + + | Metronidazole | | | 05/02/20 | | | | | | 13 | | + + + + + + | Penicillins | | | 05/02/20 | | | | | | 13 | | + + + + + + | Sulfa (Sulfonamide | | | 05/02/20 | | | Antibiotics) | | | 13 | | + + + + + + Medications + + + +---------+------+------+-------+ | Medication | Sig | Dispensed | Refills | Star | End | Statu | | | | | | t | Date | s | | | | | | Date | | | + + + +---------+------+------+-------+ | simvastatin 20 mg | Take 20 mg by mouth | | 0 | | | Activ | | Oral tablet | once daily in the | | | | | e | | | evening. | | | | | | + + + +---------+------+------+-------+ | meloxicam 15 mg | Take 15 mg by mouth | | 0 | | | Activ | | Oral tablet | once daily. | | | | | e | + + + +---------+------+------+-------+ | cetirizine 10 mg | Take 10 mg by mouth | | 0 | | | Activ | | Oral tablet | once daily. | | | | | e | + + + +---------+------+------+-------+ | PARoxetine 20 mg | Take 20 mg by mouth | | 0 | | | Activ | | Oral tablet | once daily. | | | | | e | + + + +---------+------+------+-------+ | risperiDONE 4 mg | Take 4 mg by mouth | | 0 | | | Activ | | Oral tablet | once daily at | | | | | e | | | bedtime. | | | | | | + + + +---------+------+------+-------+ | levothyroxine 137 | Take 137 mcg by | | 0 | | | Activ | | mcg Oral tablet | mouth once daily. | | | | | e | + + + +---------+------+------+-------+ | albuterol 90 | Inhale every four | | 0 | | | Activ | | mcg/actuation | hours as needed. | | | | | e | | Inhalation HFA | | | | | | | | Aerosol Inhaler | | | | | | | + + + +---------+------+------+-------+ | omeprazole 20 mg | Take 20 mg by mouth | | 0 | | | Activ | | Oral capsule,delayed | once daily in the | | | | | e | | release(DR/EC) | morning. | | | | | | + + + +---------+------+------+-------+ | docusate sodium 50 | Take 50 mg by mouth | | 0 | | | Activ | | mg Oral capsule | once daily. | | | | | e | + + + +---------+------+------+-------+ | ascorbic acid 500 | Take 500 mg by mouth | | 0 | | | Activ | | mg Oral tablet | two times daily. | | | | | e | + + + +---------+------+------+-------+ | ferrous sulfate | Take 325 mg by mouth | | 0 | | | Activ | | 325 mg (65 mg iron) | two times daily. | | | | | e | | Oral tablet | | | | | | | + + + +---------+------+------+-------+ | cholecalciferol, | Take 2,000 Units by | | 0 | | | Activ | | Vitamin D3, 1,000 | mouth once daily. | | | | | e | | unit Oral tablet | | | | | | | + + + +---------+------+------+-------+ | estradiol 1 mg | Take 2 mg by mouth | | 0 | | | Activ | | Oral tablet | once daily. | | | | | e | + + + +---------+------+------+-------+ | [place]-3 Fatty | Take 1 Cap by mouth | | 0 | | | Activ | | Acids-Vitamin E | two times daily. | | | | | e | | (FISH OIL) 1,000 mg | | | | | | | | Oral capsule | | | | | | | + + + +---------+------+------+-------+ | nicotine 7 mg/24 | Apply 1 Patch to | | 0 | | | Activ | | hr Transdermal Patch | skin once daily. | | | | | e | | 24 hr | | | | | | | + + + +---------+------+------+-------+ | gabapentin 300 mg | Take 600 mg by mouth | | 0 | | | Activ | | Oral capsule | three times daily. | | | | | e | + + + +---------+------+------+-------+ | | Inhale 1 Puff every | | 0 | | | Activ | | albuterol-ipratropiu | six hours as needed. | | | | | e | | m 18-103 | | | | | | | | mcg/actuation | | | | | | | | Inhalation Aerosol | | | | | | | | (Aero) | | | | | | | + + + +---------+------+------+-------+ | sildenafil | Take 1 Tab by mouth | 90 Tab | 11 | 07/2 | | Activ | | (REVATIO) 20 mg Oral | three times daily. | | | 20 | | e | | tablet | Administer at least | | | 13 | | | | | 4-6 hours apart. | | | | | | + + + +---------+------+------+-------+ | tadalafil, | Take 40 mg by mouth | | 0 | | | Activ | | antihypertensive, | once daily. | | | | | e | | (ADCIRCA) 20 mg oral | | | | | | | | tablet | | | | | | | + + + +---------+------+------+-------+ | buPROPion SR 200 | Take 200 mg by mouth | | 0 | | | Activ | | mg oral tablet | two times daily. | | | | | e | | extended release | | | | | | | + + + +---------+------+------+-------+ | cephALEXin 250 mg | Take 250 mg by mouth | | 0 | | | Activ | | oral capsule | every six hours. | | | | | e | + + + +---------+------+------+-------+ | clindamycin 300 mg | Take 300 mg by mouth | | 0 | | | Activ | | oral capsule | every eight hours. | | | | | e | + + + +---------+------+------+-------+ | Cranberry Extract | Take by mouth. | | 0 | | | Activ | | (CRANBERRY | | | | | | e | | CONCENTRATE) 500 mg | | | | | | | | oral capsule | | | | | | | + + + +---------+------+------+-------+ | sodium chloride | Instill 2 sprays | | 0 | | | Activ | | (DEEP SEA NASAL) | into each nostril as | | | | | e | | 0.65 % nasal | needed. | | | | | | | aerosol,spray | | | | | | | + + + +---------+------+------+-------+ | divalproex DR 500 | Take 500 mg by mouth | | 0 | | | Activ | | mg oral | two times daily. | | | | | e | | tablet,delayed | | | | | | | | release (DR/EC) | | | | | | | + + + +---------+------+------+-------+ | furosemide 80 mg | Take 80 mg by mouth | | 0 | | | Activ | | oral tablet | once daily. | | | | | e | + + + +---------+------+------+-------+ | Ambrisentan | Take 10 mg by mouth | | 0 | | | Activ | | (LETAIRIS) 10 mg | once daily. | | | | | e | | oral tablet | | | | | | | + + + +---------+------+------+-------+ | acetaminophen | Take 325 mg by mouth | | 0 | | | Activ | | (MAPAP) 325 mg oral | every four hours as | | | | | e | | tablet | needed. | | | | | | + + + +---------+------+------+-------+ | MAGNESIUM | Take by mouth. | | 0 | | | Activ | | HYDROXIDE (MILK OF | | | | | | e | | MAGNESIA ORAL) | | | | | | | + + + +---------+------+------+-------+ | potassium chloride | Take 20 mEq by mouth | | 0 | | | Activ | | 20 mEq oral packet | once daily. | | | | | e | + + + +---------+------+------+-------+ | beclomethasone 80 | Inhale 1 puff two | | 0 | | | Activ | | mcg/actuation | times daily. | | | | | e | | inhalation aerosol | | | | | | | + + + +---------+------+------+-------+ | guaiFENesin | Take by mouth every | | 0 | | | Activ | | (ROBAFEN) 100 mg/5 | four hours as | | | | | e | | mL oral syrup | needed. | | | | | | + + + +---------+------+------+-------+ | triamcinolone | Apply to affected | | 0 | | | Activ | | acetonide 0.1 % | area three times | | | | | e | | topical cream | daily. Apply thin | | | | | | | | film to affected | | | | | | | | areas. | | | | | | + + + +---------+------+------+-------+ | cyanocobalamin | Inject 1,000 mcg | | 0 | | | Activ | | 1,000 mcg/mL | under the skin | | | | | e | | injection solution | (SUBC) every thirty | | | | | | | | days. | | | | | | + + + +---------+------+------+-------+ | cyanocobalamin | Take 1,000 mcg by | | 0 | | | Activ | | (VITAMIN B-12) 1,000 | mouth once daily. | | | | | e | | mcg oral tablet | | | | | | | + + + +---------+------+------+-------+ Active Problems + + + | Problem | Noted Date | + + + | Pulmonary arterial hypertension | 05/11/2013 | + + + + + | Overview: RHC 05/10/13: | | RV 109/22 | | PA 105/47 | | Mean PA 63 | | Wedge mean 10 | + + + + + | Pulmonary hypertension | 05/03/2013 | + + + | Cor pulmonale, chronic | 05/03/2013 | + + + | Right heart failure due to pulmonary hypertension | 05/03/2013 | + + + | Sleep apnea | 05/03/2013 | + + + | Morbid obesity with BMI of 45.0-49.9, adult | 05/03/2013 | + + + | COPD (chronic obstructive pulmonary disease) with chronic | 05/03/2013 | | bronchitis | | + + + | Anasarca | 05/03/2013 | + + + | Seizure disorder | 05/03/2013 | + + + | Bipolar affective disorder | 05/03/2013 | + + + | Developmental delay | 05/03/2013 | + + + + + | Overview: Cognitive impairment | + + +---------+ + | Dyspnea | 05/02/2013 | +---------+ + Immunizations + + + + | Name | Administration Dates | Next Due | + + + + | Pneumococcal 23 | 05/08/2013 | | + + + + Social History + + + +--------+------+ | Tobacco Use | Types | Packs/Day | Years | Date | | | | | Used | | + + + +--------+------+ | Former Smoker | Cigarettes | 1 | 15 | | + + + +--------+------+ + +---+---+ + | Smokeless Tobacco: | | | Quit: | | Former User | | | 11/18/19 | | | | | 14 | + +---+---+ + + + | Tobacco Cessation: Ready to Quit: Yes; Counseling Given: Yes | | Comments: Has cut back from 1PPD to 1/2PPD over past few weeks. | + + + + +---------+ + | Alcohol Use | Drinks/Week | oz/Week | Comments | + + +---------+ + | Not Asked | 0 Standard drinks | 0.0 | | | | or equivalent | | | + + +---------+ + + + + | Sex Assigned at | Date Recorded | | | | + + + | Not on file | | + + + Last Filed Vital Signs + + + + + | Vital Sign | Reading | Time Taken | Comments | + + + + + | Blood Pressure | 102/60 | 07/19/2016 10:57 AM | | | | | PDT | | + + + + + | Pulse | 56 | 07/19/2016 10:57 AM | | | | | PDT | | + + + + + | Temperature | 37.2 C (99 F) | 05/12/2013 8:07 AM | | | | | PDT | | + + + + + | Respiratory Rate | 20 | 05/12/2013 8:07 AM | | | | | PDT | | + + + + + | Oxygen Saturation | 97% | 07/19/2016 10:57 AM | | | | | PDT | | + + + + + | Inhaled Oxygen | - | - | | | Concentration | | | | + + + + + | Weight | 91.4 kg (201 lb 9.6 | 07/19/2016 10:57 AM | | | | oz) | PDT | | + + + + + | Height | 147.3 cm (4' 10") | 07/19/2016 10:57 AM | | | | | PDT | | + + + + + | Body Mass Index | 42.13 | 07/19/2016 10:57 AM | | | | | PDT | | + + + + + Plan of Treatment + + + + + | Health Maintenance | Due Date | Last | Comments | | | | Done | | + + + + + | Influenza (Flu) | | 08/15/20 | | | vaccination (#1) | 0 | 17, | | | | | 08/16/20 | | | | | 16, | | | | | 07/31/20 | | | | | 15, | | | | | Addition | | | | | al | | | | | history | | | | | exists | | + + + + + | Pneumococcal | Completed | 03/12/20 | | | vaccination | | 15, | | | | | 07/09/20 | | | | | 13 | | + + + + + Results Not on filefrom Last 3 Months Insurance + +--------+ +--------+ + +--------+ | Payer | Benefi | Subscriber | Effect | Phone | Address | Type | | | t Plan | ID | sofi | | | | | | / | | Dates | | | | | | Group | | | | | | + +--------+ +--------+ + +--------+ | RESEARCH ASSISTANT PROFESSOR MEDICAID | RESEARCH ASSISTANT PROFESSOR | [id number] | Effect | | | Medica | | | [place]AST[place] | | sofi | | | id | | | [place] | | for | | | | | | | | all | | | | | | | | dates | | | | + +--------+ +--------+ + +--------+ | [place]ICA[place] | OHP | [id number] | 04/07/20 | [phone] | [address] | Medica | | | PLUS | | 12-Pre | 6 | [id number] | id | | | OPEN | | sent | | [place], [place] | | | | CARD | | | | [phone] | | + +--------+ +--------+ + +--------+ + +--------+ +--------+ + + | Guarantor Name | Accoun | Relation to | Date | Phone | Billing Address | | | t Type | Patient | of | | | | | | | | | | + +--------+ +--------+ + + | Margarita Rowley | Person | Self [birth year] | [address] | | | al/Fam | | 1965 | [phone] | [place] [address] | | | jammie | | | 0 (Home) | | + +--------+ +--------+ + + | Margarita Rowley May | Person | Self [birth year] | [address] | | | al/Fam | | 1965 | [phone] | [place] [address] | | | jammie | | | 0 (Home) | | + +--------+ +--------+ + + Advance Directives + + + + + | Code Status | Date | Date | Comments | | | Activated | Inactivated | | + + + + + | Full Code | 05/02/2013 | 05/12/2013 | | | | 9:56 PM | 7:32 PM | | + + + + +
--- OUTSIDE RECORDS SUMMARY | ~2020-07-30 | XMS | Encounter Summary ---
Demographics + + + | Address | [address] | | | [place] [address] | + + + | Home Phone | | + + + | Preferred Language | Unknown | + + + | Marital Status | Single | + + + | Yazdanism Affiliation | [id number] | + + + | Race | White | + + + | Ethnic Group | Not or | + + + Author + + + | Author | [facility] | | | and [place] | + + + | Organization | [facility] | | | and [place] | + + + | Address | Unknown | + + + | Phone | Unavailable | + + + Support + + + + + | Name | Relationship | Address | Phone | + + + + + | [employer] | ECON | [id number] | | | | | Unknown | | + + + + + Care Team Providers + +------+ + | Care Grinding And Polishing Laborer Name | Role | Phone | + +------+ + | No, Physician | PCP | Unavailable | + +------+ + Reason for Referral [...] | Primary | [place], | [address] | | | | | pulmonary | Vera B, | [place], | | | | | hypertension | MD [address] | [place] | | | | | ([facility]) | [address] | [address] | | | | | Procedures | [place], | Phone: | | | | | ECHO | [place] [address] | [phone] | | | | | Complete [place] | | Fax: | | | | | ECHO HEART | | [phone] | | | | | XTHORACIC,[place] | | | | | | | [address] | | | | | | | DOPPLER [place] | | | | | | | [...] | Primary | Offenstein, | [address] | | | | | pulmonary | Vera B, | [place], | | | | | hypertension | MD [address] | [place] | | | | | (HCC) | [address] | [address] | | | | | Procedures | [place], | Phone: | | | | | ECHO | [place] [address] | [phone] | | | | | Complete [place] | | Fax: | | | | | ECHO HEART | | [phone] | | | | | XTHORACIC,[place] | | | | | | | MPLETE [address] | | | | | | | [place] | | | | | | | [...] | +--------+ + + + + | 03/26/ | Hospital | [facility] | [place], | Primary pulmonary | | 2014 | Encounter | [facility] E[facility] [address] | Vera Farrar MD | hypertension | | | | [place] | Maciel Silva, | | | | | [place] [address] | Technologist | | | | | [phone] | | | +--------+ + + + [...] +---------+ + + | risperiDONE | Take by mouth 2 | | 5 | 11/27/19 | | | (RISPERDAL) 1 mg | times daily Take one | | | 15 | | | tablet | tablet in the | | | | | | | morning and 1.5 | | | | | | | tablets in the | | | | | | | evening. | | | | | + + [...] 2 times daily. | | | | 0 | | tablet | | | | [...] mg | Daily. | | | | 0 | | tablet | | | | | | + + + +---------+ + + | [place] Starch POWD | by Does not apply [...] by mouth | | 0 | | 04/24/201 | | (COLACE) 50 MG | Daily. | | | | 8 | | capsule | | | | | | + + + +---------+ + + | furosemide (LASIX) | Take 80 mg by mouth | | 0 | | | | 80 mg tablet | Daily. | | | | 0 | + + + +---------+ + + [...] tablet | Daily. | | | | 0 | + + + +---------+ + + | nicotine | Place 7 mg onto the | | 0 | | | | (NICODERM) 7 mg/24 | skin every 24 hours. | | | | 6 | | hr | | | | | | + + + +---------+ + + | [place]-3 Fatty | Take by mouth. | | [...] + | ECHO COMPLETE | Routin | 03/26/2015 | Primary pulmonary | Results for this | | | e | 1:40 PM | hypertension | procedure are in the | | | | PDT | | results section. | + +--------+ + + + | LVEF VALUE | Routin | 03/26/2015 | | Results for this | | | e | | | procedure are in the | | | | | | results section. | + +--------+ + + + documented in this encounter Results ECHO Complete (03/26/2015 1:40 PM PDT) + + | Specimen | + + | | + + + + | Addenda | + + | Addendum by Derick Strong MD on 03/26/2015 5:26 PM Additional impression #7, | | when compared to the echocardiogram on 09/11/14, pulmonary hypertension is more | | severe. | + + + + + | Narrative | Performed At | + + + | [facility] ECHOCARD[facility]GRAM REPORT | [facility] | | STUDY DATE: 03/26/2015 PATIENT NAME: Margarita Rowley : | [facility] | | 1965 PCP: Physician No CLINICAL | [facility] | | HISTORY/DIAGNOSIS: Pulmonary HTN A transthoracic | - IMAGING | | echocardiogram with M-mode, pulsed-wave and color Doppler was | | | performed with standard views obtained. The technical quality of | | | this examination is good. The heart rhythm during the echo is | | | sinus rhythm. The M-mode, two-dimensional, color flow and spectral | | | Doppler data were reviewed and support the following | | | interpretation: Interpretation: Left Atrium: Left atrial size is | | | normal. Left ventricle: Left ventricular size is normal with normal | | | wall thickness and motion, and normal left ventricular systolic | | | function. The estimated ejection fraction is 60-65 %. Grade 1 | | | left ventricular diastolic dysfunction. Aortic root: Aortic root | | | is normal. Right Atrium: Right atrial sizes normal. Right | | | ventricle: Right ventricular size is normal with normal wall | | | thickness and normal right ventricular systolic function. | | | Pericardium: Pericardium is normal. Pulmonary artery: Pulmonary | | | artery is dilated. There is a moderate pulmonary hypertension with | | | a peak systolic pressure of 65-70 mmHg. Aortic valve: Aortic valve | | | is trileaflet and opens normally. Mitral valve: Mitral valve is | | | normal. trace mitral valve regurgitation. Pulmonic valve: Pulmonic | | | valve is normal. Tricuspid valve: Tricuspid valve is normal. mild | | | to moderate tricuspid valve regurgitation. Vena cava: The | | | inferior vena cava is normal. There is greater than 50% | | | inspiratory collapse of the IVC. IMPRESSIONS: 1. Normal left | | | ventricular size, wall thickness and motion. Preserved left | | | ventricular systolic function. LVEF is 60-65%. Paradoxical septal | | | motion. 2. Grade 1 left ventricular diastole dysfunction. 3. | | | Moderate pulmonary hypertension with a peak systolic pressure of | | | 65-70 mmHg. 4. Trace mitral valve regurgitation. 5. Mild to | | | moderate tricuspid valve regurgitation. 6. Normal IVC with normal | | | respiratory collapse. Measurements: Height: 4'11" | | | Weight: 201 Aortic root: 27 mm Aortic cusp sep: 17 mm LA: 32 | | | mm IVS-diastole: 11 mm IVS-systole: 17 mm LVPW diastole: 9 mm | | | LVPW systole: 16 mm LV diameter-diastole: 38 mm LV | | | diameter-systole: 16 mm Fractional shortenin % PFV aortic | | | valve: m/s MPG mitral valve: mmHg PFV TR jet: 3.9 m/s RA/RV | | | PP.2 mmHg LA volume: 32 mL LA index: 17 mL/m2 Mitral | | | Inflow DT: 257 ms IVRT: 104 ms Valsalva: NO PWDTI S wave: 8 | | | cm/s PWDTI E wave: 11 cm/s PWDTI A wave: 9 cm/s E/A Ratio: | | | 1.2 E/E Ratio: 7.0 Signed by: Derick Strong, | | | [facility] 03/26/2015 13:52 Electrician Second: Maciel [place], | | | RDCS, RDMS, RVT | | + + + + + + + + | Performing | Address | City/State/Zipcode | Phone Number | | Organization | | | | + + + + + | [facility] | [address] | [place] | [phone] | | [facility] | | [address] | | | - IMAGING | | | | + + + + + LVEF VALUE (03/26/2015) + +-------+ + + + | Component | Value | Ref Range | Performed | Pathologist | | | | | At | Signature | + +-------+ + + + | LVEF-TTE | 65 | | | | | TRANSTHORAC | | | | | | IC ECHO | | | | | + +-------+ + + + documented in this encounter Visit Diagnoses + + | Diagnosis | + + | Primary pulmonary hypertension | + + documented in this encounter
--- OUTSIDE RECORDS SUMMARY | ~2020-07-30 | XMS | Encounter Summary ---
Demographics + + + | Address | [address] | | | [place] [address] | + + + | Home Phone | | + + + | Preferred Language | Unknown | + + + | Marital Status | Single | + + + | Sabianism Affiliation | 1009 | + + + | Race | White | + + + | Ethnic Group | Not or | + + + Author + + + | Author | [facility] | | | and [place] | + + + | Organization | [facility] | | | and [place] | + + + | Address | Unknown | + + + | Phone | Unavailable | + + + Support + + + + + | Name | Relationship | Address | Phone | + + + + + | [employer] | ECON | [id number] | | | | | Unknown | | + + + + + Care Team Providers + +------+ + | Care Tabulating Supervisor Name | Role | Phone | + +------+ + | Yuni Shrestha | PCP | | + +------+ + Reason for Visit + + + | Reason | Comments | + + + | Pulmonary Disease | Yearly | | Appointment | | + + + Evaluate & Treat (Routine) +--------+--------+ + + + + | Status | Reason | Specialty | Diagnoses / | Referred By | Referred To | | | | | Procedures | Contact | Contact | +--------+--------+ + + + + | Closed | | Pulmonology | Diagnoses | Fady, | Jerson, | | | | | Primary | Yuni Schafer, | Scout Mistry MD | | | | | pulmonary | 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 [address] | [address] | | | | | hypertension | [address] | [place], [place] | | | | | ([facility]) | [place], | [address] | | | | | Procedures | [place] [address] | Phone: | | | | | F/U | Phone: | [phone] | | | | | | [phone] | Fax: | | | | | | Fax: | [phone] | | | | | | [phone] | | +--------+--------+ + + + + Encounter Details +--------+---------+ + + + | Date | Type | Department | Care Team | Description | +--------+---------+ + + + | 02/01/ | Office | [facility] | Scout Arthur, | Primary pulmonary | | 2017 | Visit | PULMONARY [address] | hypertension (HCC) | | | | [place], | [place] [address] | (Primary Dx); | | | | [place] [address] | [phone] | Chronic respiratory | | | | [phone] | | failure with hypoxia | | | | | | (HCC); Obstructive | | | | | | sleep apnea; | | | | | | Diffusion capacity | | | | | | of lung (dl), | | | | | | decreased | +--------+---------+ + + + Social History [...] + + + | Blood Pressure | 110/64 | 02/01/2017 11:25 AM | | | | | PDT | | + + + + + | Pulse | 66 | 02/01/2017 11:25 AM | | | | | PDT | | + + + + + | Temperature | - | - | | + + + + + | Respiratory Rate | - | - | | + + + + + | Oxygen Saturation | 94% | 02/01/2017 11:25 AM | 1 L/M | | | | PDT | | + + + + + | Inhaled Oxygen | - | - | | | Concentration | | | | + + + + + | Weight | 88.6 kg (195 lb 6.4 | 02/01/2017 11:25 AM | | | | oz) | PDT | | + + + + + | Height | 149.9 cm (4' 11") | 02/01/2017 11:25 AM | | | | | PDT | | + + + + + | Body Mass Index | 39.47 | 02/01/2017 11:25 AM | | | | | PDT | | + + + + + documented in this encounter Progress Notes Scout Arthur MD - 02/01/2017 1:04 PM PDT51 year old woman previously with sev ere pulmonary hypertension now critically improved, on medication and oxygen and BiPAP at [facility] HPI: I am able to reconstruct this patient's history with the benefit of Dr. Elvi rivera's pulmonary clinic notes from [facility] in [facility] from May 17, 2016. Today, she is doing well, she says, with no particular complaints referable to her cardiopu lmonary systems. She walks every day, wears her oxygen during the day and at night and wear s BiPAP at night. The only concern she had for me was that after walking a significant diff erence, she notices a popping feeling on her forehead that lasts for about 10 minutes and wo ndered if it was a matter of concern. It has been going on for quite some time. I told her she is probably quite aware of it, but it is not a threat to her health, and she was reliev ed with that. Her pulmonary hypertension was apparently diagnosed August 08, 2013 in [place] at [facility] on 2 L with right atrial mean pressure of 17, right ventricle pressure of 109/22, and pulmonary artery pressure of 105/47, with a mean of 63. The wedge pressure was 10. The blood pressu re was 132/79. The heart rate was 84/m. Hemoglobin was 17. The Rehan cardiac output was 2. 07 L/m. The pulmonary vascular resistance was 25.6 Wood units. After inhaled nitric oxide, 40 ppm with 2 L oxygen, there was no significant change. The CT angiogram was negative for acute or chronic PE in February 2013. Hence, it seems the diagnosis was made. She is currently taking ambrisentan and 10 mg once daily and tadalafil 40 mg once daily. S he uses oxygen 1 L/m when she's resting and 4 L/m when she is walking. At night she uses he r BiPAP full face mask and 2 L of oxygen. The caregiver accompanying her says her oxygen sa turation is frequently tested and always 90-94%. She is using Lasix 80 mg once daily and sa ys this prevents her having any edema. She also carefully restricts sodium. She has no cough or respiratory symptoms. She smoked from age [age], and then again for qu ite some time but quit a year and a half ago, having smoked one pack per day. She never had asthma never had wheezing never had significant coughing. 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 She also has a seizure disorder. She is medica [facility] for that as well as depression and for lipids. Drug allergies are said to be erythromyc in and Flagyl, penicillin, and sulfa drugs. Social history: Currently lives in a place with the caregiver, has her medications and oxyg en provided and her exercise and diet supervised. No alcohol and no tobacco now. Physical exam: Quite tremulous pleasant attentive middle-aged woman in no acute distress we aring on-demand oxygen at 1 L/m. Weight 195 blood pressure 110/64 pulse 66 and regular oxyg en saturation 94% on 1 L respirations 20 quiet HEENT she has significant seborrheic dermatit is on her face. The pupils are small but reactive. The conjunctiva are pink. The orophary nx is unremarkable. The cheeks are flushed. The neck is normal with normal carotids and no adenopathy. There is no wheezing or rhonchi in the lungs. Cardiac exam shows paradoxicall y split S2, with a widened second sound with 2 sounds audible during exhalation and only one sound audible during inspiration. I hear no gallop or murmur. Diminished obese but otherw ise negative. The extremities show no edema but a great deal of tremulousness. Laboratory evaluation: I obtained a new chest x-ray today which is unremarkable other than a filled retrosternal airspace, and unchanged from her July 2015 chest x-ray. An echocardiogram from [facility] done March 09, 2016, a little b it less than a year ago, showed estimated systolic PA pressures of 36-41, normal size chambe rs, and a normal left ventricular ejection fraction. Impression and plan: 1. Primary pulmonary hypertension: She is stable on her current medications and says they do not need refills. I have excepted her caregiver and the patient's attestation that her o xygenation remained satisfactory on the current regimen including her BiPAP at night. Certa inly her chest x-ray does not show that she is been accumulating heart size or fluid or pulm onary congestion and her physical exam confirms the same. She can return as needed but otherwise we could see her again in one year. If there is not been an echocardiogram before that time, we will get one then. I do not know if she will a lso be seeing her pulmonary hypertension specialist in [place] before then. The note from 2016 was very helpful. Over half the session was spent in counseling. [employer] was used as a skelp processor and I a pologized for uncorrected mistakes. Scout Arthur M.D. 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
--- OUTSIDE RECORDS SUMMARY | ~2020-07-30 | XMS | Encounter Summary ---
Demographics + + + | Address | [address] | | | [place] [address] | + + + | Home Phone | | + + + | Preferred Language | Unknown | + + + | Marital Status | Single | + + + | Holiness Affiliation | 1009 | + + + | Race | White | + + + | Ethnic Group | Not or | + + + Author + + + | Author | [facility] | | | and [place] | + + + | Organization | [facility] | | | and [place] | + + + | Address | Unknown | + + + | Phone | Unavailable | + + + Support + + + + + | Name | Relationship | Address | Phone | + + + + + | [employer] | ECON | [phone] | | | | | Unknown | | + + + + + Care Team Providers + +------+ + | Care Cadmium Burner Name | Role | Phone | + +------+ + | uYni Shrestha | PCP | | + +------+ [...] | | Hypoxemia | | | | [place] [address] | | | | | | [phone] | | | +--------+ + + + [...]
--- OUTSIDE RECORDS SUMMARY | ~2020-07-30 | XMS | Encounter Summary ---
Demographics + + + | Address | [address] | | | [place] [address] | + + + | Home Phone | | + + + | Preferred Language | Unknown | + + + | Marital Status | Single | + + + | Congregational Affiliation | 1009 | + + + | Race | White | + + + | Ethnic Group | Not or | + + + Author + + + | Author | [facility] | | | and [place] | + + + | Organization | [facility] | | | and [place] | + + + | Address | Unknown | + + + | Phone | Unavailable | + + + Support + + + + + | Name | Relationship | Address | Phone | + + + + + | [employer] | ECON | [phone] | | | | | Unknown | | + + + + + Care Team Providers + +------+ + | Care Revenue Director Name | Role | Phone | + +------+ + | Gela Trimble NP | PCP | | + +------+ + Reason for Visit + + + | Reason | Comments | + + + | Follow-up | | + + + Evaluate & Treat (Routine) +--------+--------+ + + + + | Status | Reason | Specialty | Diagnoses / | Referred By | Referred To | | | | | Procedures | Contact | Contact | +--------+--------+ + + + + | Closed | | Pulmonary | Diagnoses | Nai, | Fatou, | | | | Disease / | Chronic | Gela Mistry, | Vera Farrar, | | | | Pulmonology | airway | 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 [address] | [place] | | | | | obstruction, | IRMA | | | | | | not | [address] | | | | | | elsewhere | [place], | | | | | | classified | [place] [address] | | | | | | Obstructive | Phone: | | | | | | sleep apnea | [phone] | | | | | | (adult) | Fax: | | | | | | (pediatric) | [phone] | | | | | | Procedures | | | | | | | ME OFFICE | | | | | | | OUTPATIENT | | | | | | | VISIT 25 | | | | | | | MINUTES F/U | | | +--------+--------+ + + + + Encounter Details +--------+---------+ + + + | Date | Type | Department | Care Team | Description | +--------+---------+ + + + | 11/12/ | Office | [facility] | Offenstein, | Primary pulmonary | | 2014 | Visit | PULMONARY [address] | Vera Farrar MD | hypertension | | | | [place], | | (Primary Dx); COPD | | | | [place] [address] | | (chronic obstructive | | | | [phone] | | pulmonary disease); | | | | | | Hypoxemia; Tremor; | | | | | | Morbid obesity | +--------+---------+ + + + Social History [...] + + + | Blood Pressure | 114/82 | 09/11/2014 8:30 AM | | | | | PST | | + + + + + | Pulse | 120 | 09/11/2014 8:30 AM | | | | | PST | | + + + + + | Temperature | - | - | | + + + + + | Respiratory Rate | - | - | | + + + + + | Oxygen Saturation | 91% | 09/11/2014 8:30 AM | On 2LPM | | | | PST | | + + + + + | Inhaled Oxygen | - | - | | | Concentration | | | | + + + + + | Weight | 94.3 kg (208 lb) | 09/11/2014 8:30 AM | | | | | PST | | + + + + + | Height | 149.9 cm (4' 11") | 09/11/2014 8:30 AM | | | | | PST | | + + + + + | Body Mass Index | 42.01 | 09/11/2014 8:30 AM | | | | | PST | | + + + + + documented in this encounter Patient Instructions Patient Instructions Vera Lainez MD - 09/11/2014 8:50 AM PSTDiscontinue physica l therapy exercises. Increase fluid to 2000 cc daily. Margarita may have 2 free meals per month, one approximately every 2 weeks. Margarita should be walked 450 feet 6 times weekly. I would ask her primary provider about a referral to see an eye doctor. We will try to do the 6 minute walk today to check her oxygen and walking capability. Elect ronically signed by Vera Lainez MD at 09/11/2014 9:13 AM PST documented in this encounter Progress Notes Vera Lainez MD - 09/11/2014 8:38 AM PSTFormatting of this note might be differe nt from the original. Pulmonary Follow Up HPI Margarita Rowley is a 49 y.o. female patient of Gela Trimble here today for follow up of primary pulmonary hypertension. Since their last visit she feels like she has been doing somewhat better. She had one uppe r respiratory infection which only lasted a few days (they think it lasted about 5 days, a f ew weeks ago. She has not otherwise been sick. She is currently on a regimen of Letairis 10mg daily. She also takes Qvar for her COPD. She does feel like this medication regimen is working for them. She has to been needing to take her rescue inhaler. She returns today for routine follow up. Currently she is able to walk at least 300 feet, and likely closer to 600 feet at her own p priti on level ground. She is exercising regularly. She is walking 300 feet 6 days a week. She notes that she feels like her blood is not pumping not well enough when she does this, and she feels needles in her chest. She walks on 4L of oxygen, and her oxygen level has been fin e. She also does some other physical therapy exercises such as marching in place, kicking he r feet out three days a week. She coughs on occasion, and does at times bring up mucous, which is green in color. She thi nks she might be getting another cold right now. She is currently on oxygen at 2L during the daytime, then uses 5L with sleep. Her caregiver notes that she had a friend recently. Since then they have noted food sandra rding issues, and sneaking around without her oxygen on. She has expressed concerns that she is being starved to by the home, not getting enough fluid on her current diet. Her ca regiver asked about liberalizing things so she does not feel so restricted, but is still wit hin reasonable goals. We discussed today that she has been losing weight at a very reasonabl e pace. 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 Allergies: Allergies Allergen Reactions Erythromycin Metronidazole Penicillins Sulfa Antibiotics Medications: Outpatient Encounter Prescriptions as of 09/11/2014 Medication Sig Dispense Refill acetaminophen (MAPAP) 325 mg tablet Take 650 mg by mouth every 4 hours as needed. albuterol (VENTOLIN HFA) 90 mcg/puff inhaler Inhale 2 puffs into the lungs every 6 hour s as needed. ambrisentan (LETAIRIS) 10 MG tablet Take 10 mg by mouth Daily. [DISCONTINUED] ambrisentan (LETAIRIS) 5 MG tablet Take 10 mg by mouth Daily. ascorbic acid (VITAMIN [...] TABS Take 2,000 Units by mouth Daily. [place] Starch POWD by Does not apply route [...] tablet Take 15 mg by mouth Daily. Moneta-3 Fatty Acids (SEA-OMEGA 30) 1200 MG CAPS Take by mouth. omeprazole (PRILOSEC) 20 mg capsule Take 20 mg by mouth every morning (before breakfast ). ondansetron (ZOFRAN ODT) 4 mg disintegrating tablet Take 4 mg by mouth every 8 hours as needed. oxygen Inhale 2 L into the lungs continuous. 5L when asleep. PARoxetine (PAXIL) 20 mg tablet Take 20 [...] 24 hours time period. 1 each 0 simvastatin (ZOCOR) 20 mg tablet Take 20 mg by mouth nightly. trolamine salicylate (ASPERCREME) 10% cream Apply topically as needed. UNCODED MEDICATION Change pressure on BiPAP to 16/5 cm with backup of 8 and 5 L/min O2 bled into system. 1 Device 0 vitamin B-12 (CYANOCOBALAMIN) 1000 MCG tablet Take 1,000 mcg by mouth Daily. Review of Systems Constitutional: Denies fever, chills, sweats. She has continued to lose weight. She is con cerned that she is not getting enough to eat. Sleep: She is using her BiPAP at night, and reports it is going well. She notes she likes it and sleeps well on it. Eyes: Denies eye irritation. She gets occasional blurry vision and sees shadows. ENT: Denies earache, decreased hearing, sore throat, and hoarseness. Has occasional nosebl eeds. Resp: See HPI. CV: Denies chest pain, palpitations, syncope, and peripheral edema. GI: Denies nausea, vomiting, and abdominal pain. : Denies difficulty emptying bladder. Neuro: Tremor has improved with medication changes made by Dr. Fajardo. Objective BP 114/82 | Pulse 120 | Ht 1.499 m (4' 11") | Wt 94.348 kg (208 lb) | BMI 41.99 kg/m2 | SpO 2 91% 2L General Appearance: Alert, cooperative, no distress, appears stated age Head: Normocephalic, without obvious abnormality, atraumatic Eyes: PERRL, conjunctiva clear, no scleral icterus, EOM's intact Ears: Normal TM's, external auditory canals, normal acuity Nose: Nares normal, septum midline, mucosa edmatous Mouth: No oral lesions or exudate Neck: Supple, symmetrical, no adenopathy Lungs: No accessory muscle use, breath sounds are diminished bilaterally with prolongatio n of the expiratory phase, no wheezes, crackles or rhonchi Chest Wall: No deformity Heart: Regular rate and rhythm, split S2, no murmur, rub or gallop Abdomen: Soft, non-tender, non-distended, obese Extremities: No cyanosis, clubbing, or edema Pulses: Radial pulses 2+ and symmetric Skin: Warm and dry Lymph nodes: Cervical and supraclavicular nodes normal Data: Echo ordered for today and results are pending. Immunization History Administered Date(s) Administered TRIVALENT INFLUENZA, PRESERATIVE FREE (PED/ADOL/ADULT) 07/31/2013, 08/11/2014 Assessment 1. Primary pulmonary hypertension - Overall seems stable. She will have her echocardiogram today and see Dr. Rivera next month. We will liberalize her fluid to 2000 cc daily and see h ow she does. 2. COPD (chronic obstructive pulmonary disease) - On Qvar and stable. She has not had an ex acerbation despite recent URI. 3. Hypoxemia - On oxygen. Suspect that today's saturation was not accurate. We will do requ alifying walking oximetry today. 4. Tremor - Improved. Likely related to her psychiatric medications. Being evaluated by Dr. Fajardo. 5. Morbid obesity- Has lost 22 pounds this year, which is a very reasonable weight loss. We discussed doing some liberalization, which would come with increased physical activity, whi ch she has been resistant to. We agreed to increase her walks to 450 feet daily, have her ma ke an effort to be up walking more, and give her one extra free meal per month. Otherwise sh e will remain on a 1500 calorie diet a day. Plan 1.Continue Letairis 10mg daily. 2.Repeat echocardiogram today. 3.Increase fluids to 2000 cc daily. 4. Allow 2 free meals per month. 5. Continue Qvar twice daily with ProAir as needed. 6. Recheck ambulating oximetry today. 7. Increase walking, 450 feet 6 times weekly. 8. Patient was encouraged to be more ambulatory in general during day. 9. I discontinued her other physical therapy exercises. 10. Follow up with Dr. Rivera next month. 11. I did suggest an eye exam for the vision changes, and they will discuss with her primar y provider. Her caregivers were advised to call if new pulmonary symptoms were to develop. Return to clinic in 3 months, or sooner with concerns. CC: BRITTANY Haley, Lashae Rivera MD Portions of this report were transcribed using voice recognition software. Every effort wa s made to ensure accuracy; however, inadvertent computerized hot dip plater errors may be pre sent. documented in t his encounter Plan of Treatment Not on filedocumented as of this encounter Visit Diagnoses + + | Diagnosis | + + | Primary pulmonary hypertension - Primary | + + | COPD (chronic obstructive pulmonary disease) Chronic airway obstruction, not | | elsewhere classified | + + | Hypoxemia | + + | Tremor Abnormal involuntary movements | + + | Morbid obesity | + + documented in this encounter
--- OUTSIDE RECORDS SUMMARY | ~2020-07-30 | XMS | Encounter Summary ---
Demographics + + + | Address | [address] | | | [place] [address] | + + + | Home Phone [...] Author + + + | Author | [facility] | | | and [place] | + + + | Organization | [facility] | | | and [place] | + + + | Address | Unknown | + + + | Phone | Unavailable | + + + Support + + + + + | Name | Relationship | Address | Phone | + + + + + | [employer] | ECON | [phone] | | | | | Unknown | | + + + + + Care Team Providers + +------+ + | Care Legal Billing Coordinator Name | Role | Phone | + +------+ + | Gela Trimble NP | PCP | | + +------+ + Reason for Visit +--------+ + | Reason | Comments | +--------+ + | Apnea | | +--------+ + Encounter Details +--------+---------+ + + + | Date | Type | Department | Care Team | Description | +--------+---------+ + + + | 11/20/ | Office | [facility] | Jacky Calderon PA | Primary central | | 2014 | Visit | SLEEP DISORDER [address] | [address] | sleep apnea (Primary | | | | [address] | [place] | Dx) | | | | [place] [address] | [address] | | | | | [phone] | | | +--------+---------+ + + + [...] +---------+ + + | Blood Pressure | 92/58 | 11/20/2013 11:21 AM | | | | | PST | | + +---------+ + + | Pulse | 67 | 11/20/2013 11:21 AM | | | | | PST | | + +---------+ + + | Temperature | - | - | | + +---------+ + + | Respiratory Rate | 16 | 11/20/2013 11:21 AM | | | | | PST | | + +---------+ + + | Oxygen Saturation | - [...] encounter Progress Notes Jacky Calderon PA - 11/20/2013 11:19 AM PST Subjective: Patient ID: Margarita Rowley is a 48 y.o. female. HPI last office visit was: 10/16/2013 date of polysomnography: 03/13/2013 at [facility] AHI: 64.2 O2%: n/a Machine type: Respironics BiPAP Auto with ResMed Quattro FX full face mask obtained from: [facility] pressure: 18/14 cm 19/5 cm Nights using BiPAP: 34/35 average usage (all nights): 6:27 6:15 average usage (nights used): 6:47 6:26 AHI: 11.0 62.5 Jessie comes in for BiPAP compliance. She was referred by Dr. Lainez to help with her pr oblems with leaks and her apnea not being completely controlled. We had [facility] in [place] change her pressure to the original prescription of IPAP 19 cm, EPAP 5 cm and a ba ckup of 8 bpm with 2 L/min O2 bled into the system. She says that she was sleeping better w ith this pressure (compared with 18/14 cm). Unfortunately, the download shows that her apne a is not being controlled at this pressure, with an AHI of 62.5. Her original titration j luis ws to have been a difficult titration and needs to be repeated. I have discussed this with Dr. Ruelas. Review of Systems Objective: Physical Exam Assessment: Problem #1: CENTRAL SLEEP APNEA (327.21) After changing her BiPAP from a pressure of 18/14 cm with O2 at 2 L/min to the original pre scription pressure of IPAP 19 cm, EPAP 5 cm and a backup of 8 bpm and 2 L/min O2, her apnea is still not controlled with an AHI of 62.5. Plan: We have scheduled her for a repeat titration study to determine the correct pressure to amanda at her apnea. She is to continue with BiPAP at her current pressure. We will adjust her pr essure after her repeat titration study. I will follow up with her following her titration study, sooner prn. Fifteen minutes were spent [id number], with the majority of time spent in counseling. Jacky Calderon PA-C cc: BRUCE Beal MD documented in this enco unter Plan of Treatment Not on filedocumented as of this encounter Visit Diagnoses + + | Diagnosis | + + | Primary central sleep apnea - Primary | + + documented in this encounter"
--- OUTSIDE RECORDS SUMMARY | ~2020-07-30 | XMS | Encounter Summary ---
Demographics + + + | Address | [address] | | | [place] [address] | + + + | Home Phone [...] Author + + + | Author | [facility] | | | and [place] | + + + | Organization | [facility] | | | and [place] | + + + | Address | Unknown | + + + | Phone | Unavailable | + + + Support + + + + + | Name | Relationship | Address | Phone | + + + + + | [employer] | ECON | [phone] | | | | | Unknown | | + + + + + Care Team Providers + +------+ + | Care Roading Engineer Name | Role | Phone | + +------+ + | Gela Trimble NP | PCP | | + +------+ + Encounter Details +--------+ + + + + | Date | Type | Department | Care Team | Description | +--------+ + + + + | 07/31/ | Abstract | [facility] [place] | Fatou, | | | 2012 | | PULMONARY [address] | Vera Farrar MD | | | | | [place], | | | | | | [place] [address] | | | | | | [phone] | | | +--------+ + + + [...]
--- OUTSIDE RECORDS SUMMARY | ~2020-07-30 | XMS | Encounter Summary ---
Demographics + + + | Address | [address] | | | [place] [address] | + + + | Home Phone [...] + + + | Author | [facility] | | | and [place] | + + + | Organization | [facility] | | | and [place] | + + + | Address | Unknown | + + + | Phone | Unavailable | + + + Support + + + + + | Name | Relationship | Address | Phone | + + + + + | [employer] | ECON | [phone] | | | | | Unknown | | + + + + + Care Team Providers + +------+ + | Care Structural Steel Erector Name | Role | Phone | + +------+ + | Yuni Shrestha | PCP | | + +------+ + Encounter Details +--------+ + + + + | Date | Type | Department | Care Team | Description | +--------+ + + + + | 06/12/ | Hospital | [facility] | [place], | Exercise hypoxemia | | 2015 | Encounter | MED CTR PULMONARY | Vera Farrar MD | ([facility]); Primary | | | | FUNCTION [address] | | pulmonary | | | | [place], | | hypertension | | | | [place] [address] | | | | | | [phone] | | | +--------+ + + + [...] L into the | | 0 | 06/12/20 | | | | lungs continuous 2 L | | | 15 | | | | at rest, 4L with | | | | | | | exertion, 5L when | | | | | | | asleep.. | | | | | + + [...] | 0 | 12/11/19 | | | ([employer]) 0.65% nasal | package instructions | Bottle [...] | | | | | | | ([facility]) | | | | | | + [...] + + + +---------+ + + | [place] Starch POWD | by Does not apply [...] mcg by | | 0 | | 04/05/201 | | (SYNTHROID, | mouth every morning [...] + + + +---------+ + + | [address] Fatty | Take by mouth. | | [...] FUNCTION TESTING | | 9:41 AM | ([facility]) Primary | | | ORDERS [...]
--- OUTSIDE RECORDS SUMMARY | ~2020-07-30 | XMS | Encounter Summary ---
Demographics + + + | Address | [address] | | | [place] [address] | + + + | Home Phone [...] + + + | Author | [facility] | | | and [place] | + + + | Organization | [facility] | | | and [place] | + + + | Address | Unknown | + + + | Phone | Unavailable | + + + Support + + + + + | Name | Relationship | Address | Phone | + + + + + | [employer] | ECON | [phone] | | | | | Unknown | | + + + + + Care Team Providers + +------+ + | Care Restaurant Managing Partner Name | Role | Phone | + +------+ + | Gela Trimble NP | PCP | | + +------+ + Encounter Details +--------+ + + + + | Date | Type | Department | Care Team | Description | +--------+ + + + + | 06/20/ | Orders Only | [facility] [place] | Fatou, | Obstructive sleep | | 2013 | | PULMONARY [address] | Vera Farrar MD | apnea (adult) | | | | [place], | | (pediatric) (Primary | | | | [place] [address] | | Dx) | | | | [phone] | | | +--------+ + + + [...] | + + | Obstructive sleep apnea (adult) (pediatric) - Primary | + + documented in this encounter"
--- OUTSIDE RECORDS SUMMARY | ~2020-07-30 | XMS | Encounter Summary ---
Demographics + + + | Address | [address] | | | [place] [address] | + + + | Home Phone | | + + + | Preferred Language | Unknown | + + + | Marital Status | Single | + + + | Confucianism Affiliation | NRP | + + + [...] Team Providers + +------+ + | Care Nurse Transplant Name | Role | Phone | + +------+ + | Gela Trimble SALES REPRESENTATIVE PRINTING PAPER | PCP | | + +------+ + Reason for Visit AUTH/CERT +--------+--------+ + + + + | Status | Reason | Specialty | Diagnoses / | Referred By | Referred To | | | | | Procedures | Contact | Contact | +--------+--------+ + + + + | Closed | | Adult Acute | | | [facility] | | | | Care | | | Medicine | | | | | | | [address] | | | | | | | [address] | | | | | | | Mushtaq Mailcode: | | | | | | | [address] [facility] | | | | | | | Hospital | | | | | | | [place], [place] | | | | | | | [address] | | | | | | | Phone: | | | | | | | [phone] | | | | | | | Fax: | | | | | | | [phone] | +--------+--------+ + + + + Encounter Details +--------+ + + + + | Date | Type | Department | Care Team | Description | +--------+ + + + + | 05/07/ | Results/Int | Pulmonary Function | | Unspecified asthma | | 2012 | erpretation | Lab at [facility] [address] | | (Primary Dx) | | | | [address] | | | | | | [facility] | | | | | | [place], [place] | | | | | | [address] | | | | | | [phone] | | | +--------+ + + + [...] + documented as of this encounter Progress Hung Chirinos MD - 05/08/2013 9:11 AM PDT Refer to PFT report. doc umented in this encounter Plan of Treatment Not on filedocumented as of this encounter Procedures + +--------+ + + + | Procedure Name | Priori | Date/Time | Associated Diagnosis | Comments | | | ty | | | | + +--------+ + + + | [place] SPIROMETRY TEST | Routin | 05/08/2013 | Unspecified asthma | | | | e | 9:11 AM | | | | | | [...] + | Diagnosis | + + | Unspecified asthma(493.90) - Primary Unspecified asthma | + + documented in this encounter"
--- OUTSIDE RECORDS SUMMARY | ~2020-07-30 | XMS | Encounter Summary ---
Demographics + + + | Address | [address] | | | [place] [address] | + + + | Home Phone | | + + + | Preferred Language | Unknown | + + + | Marital Status | Single | + + + | Voodoo Affiliation | NRP | + + + | Race | White | + + + | Ethnic Group | Not or | + + + Author + + + | Author | [facility] | + + + | Organization | [facility] | + + + | Address | Unknown | + + + | Phone | Unavailable | + + + Support + + +---------+ + | Name | Relationship | Address | Phone | + + +---------+ + | Lidia Thibodeaux | ECON | Unknown | | + + +---------+ + Care Team Providers + +------+ + | Care Monogram And Letter Paster Name | Role | Phone | + +------+ + PCP | Unavailable | + +------+ + Encounter Details +--------+ + + + + | Date | Type | Department | Care Team | Description | +--------+ + + + + | 05/06/ | Document-Sc | UNKNOWN DEPARTMENT | Unknown . | | | 2013 | anned | [address] | | | | | | [address] | | | | | | [place], [place] | | | | | | [address] | | | +--------+ + + + [...] documented as of this encounter Miscellaneous Notes Scan - [place], Faculty - 05/06/2014 1:03 PM PDTElectronically signed by Xuan Palumbo at 1:03 PM PDTdocumented in this encounter Plan of Treatment Not on filedocumented as of this encounter Visit Diagnoses Not on filedocumented in this encounter"
--- OUTSIDE RECORDS SUMMARY | ~2020-07-30 | XMS | Encounter Summary ---
Demographics + + + | Address | [address] | | | [place] [address] | + + + | Home Phone [...] | Author | [facility] | | | and [place] | + + + | Organization | [facility] | | | and [place] | + + + | Address | Unknown | + + + | Phone | Unavailable | + + + Support + + + + + | Name | Relationship | Address | Phone | + + + + + | [employer] | ECON | [phone] | | | | | Unknown | | + + + + + Care Team Providers + +------+ + | Care Clinical Trials Data Coordinator Name | Role | Phone | [...] | 2018 | | CONVERSION [address] | [employer] [address] | | | | | [address] | [address] | | | | | [place], [place] | [place] [address] | | | | | [address] | [phone] | | | | | [phone] | | | +--------+ + + + [...] | | | 0.80 m/s MV Dec Howell: 2.28 m/s2 MV DecT: 328.32 ms MV [...] TR Vmax: 3.20 m/s | | | Collections Director: JERRI Authenticated by: Vern Boston Report | | | Date/Time: 06-30-2018 5:55:36 | | + + + + + | Procedure Note | + + | Andrade, Rad Conversion - 06/21/2019 4:07 PM PDT Patient Name: Julia Rowley of | | : 1965 Performing Physician: Vern | | Ludy INDICATIONS------ | | -----PULMONARY HTN CONCLUSIONS 1. [...] cmLVPWd: | | 0.71 cmLVOT Area: 2.68 tu2WMYB Diam: 1.84 cm%FS: 48.21 %EF(Teich): 79.87 | | %ESV(Teich): 16.84 mlLVIDs: 2.23 cmSV(Teich): 66.85 mlRVIDd: 2.99 cmLVEF MOD | | A4C: 62.52 %SV MOD A4C: 57.86 mlLVEDV MOD A4C: 92.54 mlLVLd A4C: 7.40 cmLVESV | | MOD A4C: 34.68 mlLVLs A4C: 6.14 cmLAESV(A-L): 40.81 mlLAESV Index (A-L): 23.05 | | ml/m2LAAs A2C: 16.03 bv2PFFKB A-L A2C: 43.10 mlLALs A2C: 5.06 cmLAAs A4C: 14.91 | | nb7DXIXP A-L A4C: 37.94 mlLALs A4C: 4.97 cmRAAs: 14.88 xx9NQHNC A-L: 41.10 | | mlRAESV MOD: 39.25 mlRALs: 4.57 cmTAPSE: 2.21 cmAV maxP.90 mmHgAV meanPG: | | 6.42 mmHgAV Vmax: 1.72 m/Augustus Vmean: 1.18 m/Augustus VTI: 29.25 cmAVA Vmax: 2.30 | | cm2AVA (VTI): 2.65 zp6STSV (Vmax): 0.00 cm2/m2AVAI (VTI): 0.00 cm2/m2LVOT maxPG: | | 8.77 mmHgLVOT meanP.18 mmHgLVSI Dopp: 43.93 ml/m2LVSV Dopp: 77.77 mlLVOT | | Vmax: 1.48 m/sLVOT Vmean: 0.92 m/sLVOT VTI: 28.95 cmMV A Royal: 0.80 m/sMV Dec | | Howell: 2.28 m/s2MV DecT: 328.32 msMV E Royal: 0.75 m/sMV E/A Ratio: 0.93MV PHT: | | 95.21 msMVA By PHT: 2.31 uo5Eyqefu e': 0.04 m/sSeptal E/e': 15.90Lateral e': | | 0.08 m/sLateral E/e': 8.87RAP: 5 mmHgRVSP: 46.05 mmHgTR maxP.05 mmHgTR | | Vmax: 3.20 m/s Collections Director: JERRIAuthenticated by: Vern Joseph Date/Time: | | [...] A Royal: 0.80 m/s | |MV Dec Howell: 2.28 m/s2 | |MV DecT: 328.32 ms [...] |TR Vmax: 3.20 m/s | | | |Collections Director: DBS | |Authenticated by: Vern Boston | [...]
--- OUTSIDE RECORDS SUMMARY | ~2020-07-30 | XMS | Encounter Summary ---
Demographics + + + | Address | [address] | | | [place] [address] | + + + | Home Phone | | + + + | Preferred Language | Unknown | + + + | Marital Status | Single | + + + | Rastafari Affiliation | 1009 | + + + [...] + | [employer] | ECON | [phone] | | | | | Unknown | | + + + + + Care Team Providers + +------+ + | Care Industrial Sales Manager Name | Role | Phone | + [...] | | | | | | | ND XCAPSL | | | | | | [...] +--------+---------+ + + + | 05/22/ | Surgery | [facility] | Angel Garcia | RIGHT EXTRACTION | | 2019 | | MED CTR OR INTRA OP | MD [address] | CATARACT W/ OR W/O | | | | [address] | [place] | LENS IMPLANT | | | | [place] | [place] [address] | | | | | [address] | [phone] | | | | | [phone] | | | +--------+---------+ + + + [...] + + + | Blood Pressure | 136/77 | 05/22/2020 3:15 PM | | | | | PDT | | + + + + + | Pulse | 70 | 05/22/2020 3:15 PM | | | | | PDT [...] + | Oxygen Saturation | 95% | 05/22/2020 3:15 PM | | | | | PDT [...] wear the eye shield as noted rita mac. 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), right eye Post-op Diagnosis: same Procedure: Cataract extraction by phacoemulsification with intraocular lens implant, right eye (98885) Implant: J&J PCB00 23.0 D, SN [id number] Surgeon: Angel Garcia MD Anesthesia: Monitored Anesthesia [...] + | Diagnosis | + + | Combined forms of age-related cataract, right eye | + + documented in this encounter Administered Medications + +--------+---------+------+------+------+ | Medication Order | MAR | Action | Dose | Rate | Site | | | Action | Date | | | | + +--------+---------+------+------+------+ + +---+ | albuterol 2.5 mg/3 mL nebulizer | | | solution 2.5 mg 2.5 mg, | | | Nebulization, ONCE PRN, Wheezing, | | | Starting [facility] 05/22/20 at 1521, | | | For [...] ONCE PRN, | | | Wheezing, Starting [facility] 05/22/20 at | | | 1324, For 1 dose, Pre-op | | + +---+ | | | + +---+ + +-------+ + +---+ + | balanced salts sterile | Given | 05/22/20 | 1 | | Surgical | | ophthalmic irrigation solution | | 20 2:57 | Applicat | | Site | | PRN, Starting [facility] 05/22/20 at | | PM PDT | ion | | | | 1457, Intra-op | | | | | | + +-------+ + +---+ + +---+---+ | | | +---+---+ + +-------+ +-------+---+---+ | BSS 2.25ML + lidocaine 4% | Given | 05/22/20 | 4 mLs | | | | 0.75ML + EPINEPHrine (1:1000) 1ML | | 20 2:57 | | | | | one step ophthalmic solution | | PM PDT | | | | | PRN, Starting [facility] 05/22/20 at | | | | | | | 1457, Intra-op | | | | | | + +-------+ +-------+---+---+ + +---+ | | | + +---+ | dextrose 50% injection 12.5-25 | | | g 12.5-25 g, Intravenous, EVERY | | | 15 MIN PRN, Low Blood Sugar, Give | | | 12.5g (25 mL) IV if blood | | | glucose 50-69 mg/dL. Give 25g | | | (50 mL) IV if blood glucose < 50, | | | Starting [facility] 05/22/20 at 1324, | | | Repeat [...] | | | + +---+ + +-------+ +-------+---+---+ | hyaluronate & chondroitin | Given | 05/22/20 | 1 kit | | | | hyaluronate (DUOVISC) intraocular | | 20 2:57 | | | | | kit PRN, Starting [facility] 05/22/20 | | PM PDT | | | | | at 1457, Intra-op | | | | | | + +-------+ +-------+---+---+ +---+---+ | | | +---+---+ + +---------+ +---+ +---+ | lactated ringers (LR) infusion | New Bag | 05/22/20 | | 10 mL/hr | | | at 10-100 mL/hr, Intravenous, | | 20 1:53 | | | | | CONTINUOUS, Starting [facility] 05/22/20 | | PM PDT | | [...] PDT | | | | | Starting [facility] 05/22/20 at 1324, For | | | [...] | | | +---+---+ + +-------+ + +---+ + | lidocaine (XYLOCAINE) 2% jelly | Given | 05/22/20 | 1 | | Surgical | | (uro-jet) JAREDN, Starting [facility] | | 20 2:55 | Applicat | | Site | | 05/22/20 at 1455, Intra-op | | PM PDT | ion | | | + +-------+ + +---+ + +---+---+ | | | +---+---+ + +-------+ +--------+---+ + | moxifloxacin (VIGAMOX) 0.5 % | Given | 05/22/20 | 0.5 mg | | Eye-Righ | | intracameral injection PRN, | | 20 2:58 | | | t | | Starting [facility] 05/22/20 at 1458, | | PM PDT | | | | | Intra-op | | | | | | + +-------+ +--------+---+ + + +---+ | | | + +---+ | ondansetron (ZOFRAN) injection | | | 4 mg 4 mg, Intravenous, EVERY 4 | | | HOURS PRN, Nausea, Vomiting, | | | Starting [facility] 05/22/20 at 1521, | | | Recovery/Phase [...] | | +---+---+ + +-------+ +---------+---+---+ | pilocarpine (ISOPTO CARPINE) 1% | Given | 05/22/20 | 2 drops | | | | ophthalmic solution PRN, | | 20 2:58 | | | | | Starting [facility] 05/22/20 at 1458, | | PM PDT | | | | | Intra-op | | | | | | + +-------+ +---------+---+---+ +---+---+ | | | +---+---+ + +-------+ +---------+---+---+ | povidone-iodine 5 % ophthalmic | Given | 05/22/20 | 2 drops | | | | solution PRN, Starting [facility] | | 20 2:45 | | | | | 05/22/20 at 1445, Intra-op | | PM PDT | | | | + +-------+ +---------+---+---+ +---+---+ | | | +---+---+ [...] +---+---+ | | | +---+---+ + +-------+ +------+---+ + | triamcinolone acetonide | Given | 05/22/20 | 5 mg | | Surgical | | (KENALOG-10) 10 mg/mL injection | | 20 2:59 | | | Site | | PRN, Starting [facility] 05/22/20 at | | PM PDT | | | | | 1459, Intra-op | | | | | | + +-------+ +------+---+ + +---+---+ | | | +---+---+ + +-------+ [...]
--- OUTSIDE RECORDS SUMMARY | ~2020-07-30 | XMS | Encounter Summary ---
Demographics + + + | Address | [address] | | | [place] [address] | + + + | Home Phone | | + + + | Preferred Language | Unknown | + + + | Marital Status | Single | + + + | Muslim Affiliation | 1009 | + + + | Race | White | + + + | Ethnic Group | Not or | + + + Author + + + | Author | [facility] | | | and [place] | + + + | Organization | [facility] | | | and [place] | + + + | Address | Unknown | + + + | Phone | Unavailable | + + + Support + + + + + | Name | Relationship | Address | Phone | + + + + + | [employer] | ECON | [phone] | | | | | Unknown | | + + + + + Care Team Providers + +------+ + | Care Business Consult Name | Role | Phone | + [...] | | | | | Primary | Fatou, | [facility] | | | | | pulmonary | Vera B, | HOSPITAL | | | | | hypertension | MD [address] | [address] | | | | | (HCC) | [address] | AVE | | | | | Procedures | [place], | [place], [place] | | | | | ECHO | [place] [address] | [address] | | | | | Complete [place] | | Phone: | | | | | ECHO HEART | | [phone] | | | | | [facility],[place] | | Fax: | | | | | [address] | | [phone] | | | | | [place] | | | | | | | [...] | | | Pulmonology | obstructive | [facility] [address] | MD | | | | | pulmonary | [address] | | | | | | disease, | [place], | | | | | | unspecified | [place] [address] | | | | | | ([facility]) | Phone: | | | | | | Procedures | [phone] | | | | | | F/U | Fax: | | | | | | | [phone] | | +--------+--------+ + + + + Encounter Details +--------+---------+ + + + | Date | Type | Department | Care Team | Description | +--------+---------+ + + + | 04// | Office | [facility] | [place], | Primary pulmonary | | 2016 | Visit | PULMONARY [address] | Vera Farrar MD | hypertension (HCC) | | | | [place], | | (Primary Dx); | | | | [place] [address] | | Chronic obstructive | | | | [phone] | | pulmonary disease, | | | [...] Diagnosis Date COPD (chronic obstructive pulmonary disease) ([facility]) moderate, FEV1 1.40 (59%) Pulmonary hypertension ([facility]) severe, class 1, class 2, class 3 Bipolar disorder ([facility]) PTSD (post-traumatic stress disorder) Osteoarthritis Obstructive sleep apnea AHI 64.2 Vitamin D deficiency GERD (gastroesophageal reflux disease) Hypothyroidism Seizure disorder ([facility]) Developmental delay Hypoxemia on 2L at rest, 4L with exertion Female stress incontinence Pyelonephritis Hypertension Impulse control disorder Hyperlipidemia Obesity Alcohol abuse Cocaine abuse Past Surgical History Past Surgical History Procedure Laterality Date Mouth surgery 2 teeth removed Cardiac catherization Social History: History Social History Marital Status: Single Spouse Name: N/A Number of Children: N/A Years of Education: N/A Occupational History Disabled. [employer] Social History Main Topics Smoking status: Former Smoker -- 1.00 packs/day for 20 years Types: Cigarettes Quit date: 12/15/2015 Smokeless tobacco: Never Used Alcohol Use: No Drug Use: No Sexual Activity: Not on file Other Topics Concern None Social History Narrative Lives at [facility]. Allergies: Allergies Allergen Reactions Erythromycin Other (See [...] TABS Take 2,000 Units by mouth Daily. [place] Starch POWD by Does not apply route [...] mg onto the skin every 24 hours. [place]-3 Fatty Acids (SEA-OMEGA 30) 1200 MG CAPS [...] appointment with Dr. Rivera. ECHO Complete * [facility] ([facility]) Pulmonary Function Testing - AMB Referral 2. [...] made to ensure accuracy; however, inadvertent computerized v belt mold assembler and curer errors may be pre sent. documented in t his encounter Plan of Treatment + + +--------+ + [...]
--- OUTSIDE RECORDS SUMMARY | ~2020-07-30 | XMS | Encounter Summary ---
Demographics + + + | Address | [address] | | | [place] [address] | + + + | Home Phone [...] Author + + + | Author | [facility] | | | and [place] | + + + | Organization | [facility] | | | and [place] | + + + | Address | Unknown | + + + | Phone | Unavailable | + + + Support + + + + + | Name | Relationship | Address | Phone | + + + + + | [employer] | ECON | [id number] | | | | | Unknown | | + + + + + Care Team Providers + +------+ + | Care Erp Engineer Name | Role | Phone | [...] | Primary | Offenstein, | [address] | | | | | pulmonary | Vera B, | [place], | | | | | hypertension | MD [address] | [place] | | | | | ([facility]) | [address] | [address] | | | | | Procedures | [place], | Phone: | | | | | ECHO | [place] [address] | [phone] | | | | | Complete | | Fax: | | | | | | | [phone] | +--------+--------+ + + + + Reason [...] | | | Pulmonology | airway | [employer] [address] | MD [address] | | | | | obstruction, | [address] | [address] | | | | | not | [address] | [place], | | | | | elsewhere | [place], | [place] [address] | | | | | classified | [place] [address] | | | | | | COPD | Phone: | | | | | | Procedures | [phone] | | | | | | 3 MO FOLLOW | Fax: | | | | | | UP | [phone] | | +--------+--------+ + + + + Encounter Details +--------+---------+ + + + | Date | Type | Department | Care Team | Description | +--------+---------+ + + + | 06/11/ | Office | [facility] | Offenstein, | Primary pulmonary | | 2013 | Visit | PULMONARY [address] | Vera Farrar MD | hypertension | | | | [address] [place], | | (Primary Dx); [place] | | | | [place] [address] | | (obstructive sleep | | | | [phone] | | apnea); COPD | | | | | | (chronic obstructive | | | | | | pulmonary disease); | | | | | | Hypoxemia | +--------+---------+ + + + Social History [...] + + + | Blood Pressure | 132/76 | 06/11/2014 8:33 AM | | | | | PDT | | + + + + + | Pulse | - | - | | + + + + + | Temperature | - | - | | + + + + + | Respiratory Rate | - | - | | + + + + + | Oxygen Saturation | 93% | 06/11/2014 8:33 AM | On 2LPM | | | | PDT | | + + + + + | Inhaled Oxygen | - | - | | | Concentration | | | | + + + + + | Weight | 95.5 kg (210 lb 9.6 | 06/11/2014 8:33 AM | | | | oz) | PDT | | + + + + + | Height | 149.9 cm (4' 11") | 06/11/2014 8:33 AM | | | | | PDT | | + + + + + | Body Mass Index | 42.54 | 06/11/2014 8:33 AM | | | | | PDT | | + + + + + documented in this encounter Patient Instructions Patient Instructions Vera Lainez MD - 06/11/2014 8:52 AM PDTChange oxygen satur ation checks to every 12 hours, or as needed for signs of respiratory distress and/or if oxy gen found off. Check to make sure oxygen is in place, on and functioning hourly. Please walk Margarita 300 feet 6 days per week. documented in this encounter Progress Notes Vera Lainez MD - 06/11/2014 8:42 AM PDTFormatting of this note might be differe nt from the original. Pulmonary Follow Up HPI Margarita Rowley is a 48 y.o. female patient of Gela Trimble here today for follow up of pulmonary hypertension. At their last visit, we had rewritten her oxygen parameters. She reports her breathing has been okay. She feels like overall it has been about the same. She saw neurology, who thought her tremor was likely related to her psych meds, and they kasper ve decreased her risperdal and taken her off of this. She is currently on a regimen of Letairis 10mg daily. She is walking 150 feet daily, 6 days a week. Her caregivers feel like she could handle more, but is not motivated to do more act ivity. They feel like she is doing better. They would require an order to walk her more dist ance. She is mostly just using the walker when they go out, and almost never requires the w heelchair even when they go shopping. She has continued her Qvar twice daily. She has not been needing to use her rescue inhaler. She does cough what she feels is frequently. She does not bring up any mucous. Her caregive rs have not noticed any particular cough. She does not get any chest pain, and has not noticed any leg swelling. She is currently on oxygen at 2L. She is occasionally desaturating, and they have had to in crease it twice. They think it was more due to inaccurate readings, and when they switched t he monitor to her toe, it read a good saturation. Past Medical History Past Medical History Diagnosis Date COPD (chronic obstructive pulmonary disease) ([facility]) moderate, FEV1 1.40 (59%) Pulmonary hypertension ([facility]) severe, class 1, class 2, class 3 [...] Years of Education: N/A Occupational History Disabled. [employer] Social History Main Topics Smoking status: Former Smoker -- 1.0 packs/day for 20 years Types: Cigarettes Quit date: 05/14/2013 Smokeless tobacco: None Alcohol Use: Yes Comment: history of abuse Drug Use: Yes Special: Cocaine Comment: history of cocaine use Sexually Active: None Other Topics Concern None Social History Narrative Lives at [facility]. Allergies: Allergies Allergen Reactions Erythromycin Metronidazole Penicillins Sulfa Antibiotics Medications: Outpatient Encounter Prescriptions as of 06/11/2014 Medication Sig Dispense Refill acetaminophen (MAPAP) 325 [...] TABS Take 2,000 Units by mouth Daily. [place] Starch POWD by Does not apply route [...] tablet Take 15 mg by mouth Daily. Watkins-3 Fatty Acids (SEA-OMEGA 30) 1200 MG CAPS [...] 20 mEq by mouth 2 times daily. [DISCONTINUED] Respiratory Therapy Supplies MISC BIPAP ST rate 8 cm H2O. IPAP 19/EPAP 5 . O2 bleed in at 2 l/m. Lifetime. Dx: 327.23 1 each 0 [facility] Please contact Dr. Lainez's office if oxygen leve l drops below 88% more than 3 times during a 24 hours time period. 1 each 0 [DISCONTINUED] risperiDONE (RISPERDAL) 4 MG tablet Take 4 [...] Systems Constitutional: Denies fever, chills, and sweats. She has lost an additional 8 pounds. Sleep: Using BiPAP and saw Jacky. No issues. Eyes: Denies vision change and eye irritation. ENT: Denies earache, decreased hearing, nosebleeds, sore throat, and hoarseness. Her right ear has been hurting for 3 days. Resp: See HPI. CV: Denies chest pain, syncope, and peripheral edema. Notes occasional skipped beats. GI: Denies heartburn, nausea, vomiting, and abdominal pain.. : Denies difficulty emptying bladder. Objective BP 132/76 | Ht 1.499 m (4' 11") | Wt 95.528 kg (210 lb 9.6 oz) | BMI 42.51 kg/m2 | SpO2 93% 2L General Appearance: Alert, cooperative, no distress, appears stated age, on oxygen, contin ued tremor at rest Head: Normocephalic, without obvious abnormality, atraumatic Eyes: PERRL, conjunctiva clear, no scleral icterus, EOM's intact Ears: Canals with some cerumen, TMs appear to be normal, normal acuity Nose: Nares normal, septum midline, mucosa mildly edematous with some dried mucous within Mouth: No oral lesions or exudate Neck: Supple, symmetrical, no adenopathy Lungs: No accessory muscle use, breath sounds are somewhat diminished bilaterally with pr olongation of the expiratory phase, no wheezes, crackles or rhonchi Chest Wall: No deformity Heart: Regular rate and rhythm, no murmur, rub or gallop Abdomen: Soft, non-tender, non-distended, mildly obese Extremities: No cyanosis, clubbing, trace bilateral lower extremity edema Pulses: Radial pulses 2+ and symmetric Skin: Warm and dry Lymph nodes: Cervical and supraclavicular nodes normal Data: Avila Doll's notes were reviewed in clinic today. She was not felt to have any atrial a rrhythmia. Immunization History Administered Date(s) Administered INFLUENZA, PRESERVATIVE FREE IM 07/31/2013 Assessment 1. Primary pulmonary hypertension - Overall doing well. We will check echocardiogram at [facility] appointment in 6 months. Continue higher dose Letairis. Has had noticeable improvemen t in functional status. I will ask them to increase her daily walking distance. They notice her being able to do more when she goes places, and using the wheelchair infrequently. 2. [place] (obstructive sleep apnea) - On BiPAP with good control. Seeing Jacky in the sleep cli katharina and doing much better. 3. COPD (chronic obstructive pulmonary disease) - On Qvar. Not needing her rescue inhaler. 4. Hypoxemia - On oxygen at 2L daytime. When she has been found to be low, these saturation s have likely been erroneous. She has a 5L bleed in to her BiPAP. Plan 1.Decrease frequency of oximetry checks to twice daily. 2.Check echo in 3 months, 6 months from prior. 3.Continue Letairis. 4. Increase scheduled daily walking to 600 feet. 5. Continue nocturnal BiPAP with 5L bleed in. 6. Continue oxygen at 2L daytime, they have parameters for increasing this. She was advised to call if new pulmonary symptoms were to develop. Return to clinic in 3 months, or sooner with concerns. CC: Gela Trimble NP, Lashae Rivera MD Portions of this report were transcribed using voice recognition software. Every effort wa s made to ensure accuracy; however, inadvertent computerized cryptographic clerk errors may be pre sent. Electronically signed by: Vera Lainez MD 06/11/2014 8:55 documented in t his encounter Procedure Notes ONBASE SCAN THOR - 06/11/2014 12:00 AM PDTAssociated Order(s): IMAGING REPORT - EXTERNAL SC AN documented in this encount er Miscellaneous Notes Miscellaneous - ONBASE SCAN THOR - 06/11/2014 12:00 AM PDT lan of Care - [facility] [place] - 04/09/2014 12:00 AM PDTElec tronically signed by Thor Castro at 06/14/2014 12:12 PM PDTdocumented in this encounter Plan of Treatment Not on filedocumented as of this encounter Procedures + +--------+ + + + | Procedure Name | Priori | Date/Time | Associated Diagnosis | Comments | | | ty | | | | + +--------+ + + + | IMAGING REPORT - | | 06/11/2014 | | | | EXTERNAL SCAN | | 12:00 AM | | | | | | PDT | | | + +--------+ + + + documented in this encounter Results ECHO Complete (09/11/2014 10:36 AM PST) + + | Specimen | + + | | + + + + + | Narrative | Performed At | + + + | [facility] ECHOCARDIOGRAM REPORT | [place] | | STUDY DATE: 09/11/2014 PATIENT NAME: Margarita Rowley : | [facility] | | 1965 PCP: Gela Trimble [employer] | [facility] | | CLINICAL HISTORY/DIAGNOSIS: Pulmonary hypertension A [...] | | | Ananth Salguero MD PhD [facility] 09/11/2014 10:45 | | | Marine Photographer: Hung Caro, JUANITOCS, RVT, RDMS | | + + + + + | Procedure Note | + + | Roberto Salguero MD - 09/12/2014 9:12 AM [facility] | | CENTERECHOCARDIOGRAM REPORTSTUDY DATE: 09/11/2014PATIENT NAME: Margarita MooreB: | | 1965MRN: [id number]: Gela Trimble, [facility]INICAL HISTORY/DIAGNOSIS: | | Pulmonary hypertensionA transthoracic echocardiogram [...] PP mmHgLA volume: 30 mLLA index: 16 mL/i0Ajxtjr Inflow DT: 272 | | msIVRT: 110 msValsalva: Not neededPWDTI S wave: 7.2 cm/sPWDTI E wave: 8.0 cm/sPWDTI | | A wave: 10.4 cm/sE/A Ratio: 0.769E/E Ratio: 10.63Signed by: Artie Salguero MD | | PhD [facility] 09/11/2014 10:45 Marine Photographer: Hung Caro, RDCS, RVT, RDMS | |Tricuspid [...] 09/11/2014 10:45 | | | | | |Marine Photographer: Hung Caro, JUANITOCS, RVT, RDMS | + + + + + + + | Performing | Address | City/State/Zipcode | Phone Number | | Organization | | | | + + + + + | [facility] | [address] | [place] | [phone] | | [facility] | | [id number] | | | - IMAGING | | [...] Hypoxemia | + + documented in this encounter
--- OUTSIDE RECORDS SUMMARY | ~2020-07-30 | XMS | Encounter Summary ---
Demographics + + + | Address | [address] | | | [place] [address] | + + + | Home Phone | | + + + | Preferred Language | Unknown | + + + | Marital Status | Single | + + + | Shinto Affiliation | [id number] | + + + | Race | White | + + + | Ethnic Group | Not or | + + + Author + + + | Author | [facility] | | | and [place] | + + + | Organization | [facility] | | | and [place] | + + + | Address | Unknown | + + + | Phone | Unavailable | + + + Support + + + + + | Name | Relationship | Address | Phone | + + + + + | [employer] | ECON | [id number] | | | | | Unknown | | + + + + + Care Team Providers + +------+ + | Care Pond Scaler Name | Role | Phone | + +------+ + | Yuni Shrestha | PCP | | + +------+ + Encounter Details +--------+ + + + + | Date | Type | Department | Care Team | Description | +--------+ + + + + | 01/01/ | Abstract | [facility] [place] | [place], | | | 2015 | | PULMONARY [address] | Vera Farrar MD | | | | | [place], | | | | | | [place] [address] | | | | | | [phone] | | | +--------+ + + + [...] | HCG, URINE, QUAL | Routin | 11/13/2015 | | Results for this | | | e | | | procedure are in the | | | | | | results section. | + +--------+ + + + documented in this encounter Results , Urine, Qual (11/13/2015) + + + + + + | [...] [facility]. | [address] | [place], [place] | [phone] | | [facility] | | [id number] | | | - LABORATORY | | | | + + + + + documented in this encounter Visit Diagnoses Not on filedocumented in this encounter"
--- OUTSIDE RECORDS SUMMARY | ~2020-07-30 | XMS | Encounter Summary ---
Demographics + + + | Address | [address] | | | [place] [address] | + + + | Home Phone [...] + + + | Author | [facility] | | | and [place] | + + + | Organization | [facility] | | | and [place] | + + + | Address | Unknown | + + + | Phone | Unavailable | + + + Support + + + + + | Name | Relationship | Address | Phone | + + + + + | [employer] | ECON | [id number] | | | | | Unknown | | + + + + + Care Team Providers + +------+ + | Care Industrial Laborer Name | Role | Phone | + +------+ + | Yuni Shrestha | PCP | | + +------+ + Reason for Visit +--------+ + | Reason | Comments | +--------+ + | Other | follow up on Echo 07/09/2015 | +--------+ + Evaluate & Treat (Routine) +--------+--------+ + [...] | | | Pulmonology | airway | PROPOSAL COORDINATOR [address] | MD | | | | | obstruction, | [place] [place] | | | | | | not | [place], | | | | | | elsewhere | [place] [address] | | | | | | classified | Phone: | | | | | | Procedures | [phone] | | | | | | F/U | Fax: | | | | | | | [phone] | | +--------+--------+ + + + + Encounter Details +--------+---------+ + + + | Date | Type | Department | Care Team | Description | +--------+---------+ + + + | 08/08/ | Office | [facility] [place] | [place], | Primary pulmonary | | 2015 | Visit | PULMONARY [address] | Vera Farrar MD | hypertension | | | | [place], | | (Primary Dx); COPD | | | | [place] [address] | | (chronic obstructive | | | | [phone] | | pulmonary disease); | | | | | | GLORIA (obstructive | | | | | | sleep apnea); | | | | | | Hypoxemia; [...] + + + | Blood Pressure | 110/62 | 08/08/2015 1:26 PM | | | | | PDT | | + + + + + | Pulse | 68 | 08/08/2015 1:26 PM | | | | | PDT | | + + + + + | Temperature | - | - | | + + + + + | Respiratory Rate | 16 | 08/08/2015 1:26 PM | | | | | PDT | | + + + + + | Oxygen Saturation | 92% | 08/08/2015 1:26 PM | | | | | PDT | | + + + + + | Inhaled Oxygen | - | - | | | Concentration | | | | + + + + + | Weight | 93.9 kg (207 lb) | 08/08/2015 1:26 PM | | | | | PDT | | + + + + + | Height | 149.9 cm (4' 11") | 08/08/2015 1:26 PM | | | | | PDT | | + + + + + | Body Mass Index | 41.81 | 08/08/2015 1:26 PM | | | | | PDT | | + + + + + documented in this encounter Patient Instructions Patient Instructions Vera Lainez MD - 08/08/2015 2:18 PM PDTWe will check some labs today. Start back on Adcirca 40mg daily in addition to the Letairis. Needs to quit smoking. Six minute walk test next visit. Do an overnight oxygen test through [facility]. Call to have a box delivered by the [employer]. Wear the finger probe through the night. Do the test on 5L bled in to th e BiPAP. Call the [employer] to have the box picked up the following day. Make sure to continue monthly urine tests. documented in this encounter Progress Notes Vera Lainez MD - 08/08/2015 1:35 PM PDTFormatting of this note might be differe nt from the original. Pulmonary Follow Up HPI Margarita Rowley is a 49 y.o. female patient of VIKAS Galicia here today for follow up of primary pulmonary hypertension. At their last visit, we had ordered a follow up echocardiogram, which was done in [place] . Since their last visit she feels like she has been going downhill. She feels like she is slower and has more dizziness. She did have a syncopal episode while out smoking an not wearing her oxygen. They believe t hat this was due to lack of oxygen as her oxygen level was low at the time. She also had some chest pain Tuesday after having walked a lot, though she was sitting at the time it occurred. She had been wearing her oxygen when she was walking. She has continued to smoke, about 1 cigarette every 2 hours, though last night she went 4 h ours without smoking. She is currently on a regimen of Letairis 10mg daily and furosemide 80mg twice daily. She r eports good compliance with this and her fluid restriction. She notes one time she did sneak fluids. She notes that 3 does drink 3 sodas a day, but these are diet and they are counted in her fluid restriction. She returns today for routine follow up. Currently she is able to walk 50-100 feet at her own pace on level ground. She is exercisin g regularly. We have her doing 1200 feet of walking daily, which she will divide up between work and home. She feels like she has swelling in both of her thigh regions. She has arthritis in her left knee, which seems to cause some joint swelling, but feels like the right thigh swells too. She does think she is peeing a lot. She has been evaluated for nocturnal oxygen and does use it. She is currently on 5 LPM at n ight bled in to her BiPAP. She reports good compliance. She is using 1L at rest and 4L with exertion, and on this her saturation has been okay. She generally runs in the low 90s. Occa sionally when she talks a lot at rest, they note she will drop below 89% and then they have her take a few deep breaths. The dizziness does not correlate with her oxygen being low. She is not having issues with the BiPAP machine, and is using it nightly without compliance issues. Past Medical History Past Medical History Diagnosis [...] Years of Education: N/A Occupational History Disabled. [email or web address] Social History Main Topics Smoking status: Current Every Day Smoker -- 1.00 packs/day for 20 years Types: Cigarettes Smokeless tobacco: None Comment: restarted in August 2014, quit again 12/10/14, resumed a few cigarettes again Alcohol Use: 0.0 oz/week 0 Not specified per week Comment: history of abuse Drug Use: Yes Special: Cocaine Comment: history of cocaine use Sexual Activity: None Other Topics Concern None Social History Narrative Lives at [facility]. Allergies: Allergies Allergen Reactions Erythromycin Metronidazole Penicillins Sulfa Antibiotics Medications: Outpatient Encounter Prescriptions as of 08/08/2015 Medication Sig Dispense Refill acetaminophen (MAPAP) 325 [...] TABS Take 2,000 Units by mouth Daily. Free [place] Starch POWD by Does not apply route [...] mg onto the skin every 24 hours. [place]-3 Fatty Acids (SEA-OMEGA 30) 1200 MG CAPS [...] facility-administered encounter medications on file as of 08/08/2015. Review of Systems: General: []Weight loss/gain (over 10 lbs) []Fever/chills/sweats []Night sweats EENT: []Hearing loss [x]Vision loss/change [x]Sinus congestion/nasal drainage []Nosebleeds []Hoarseness Cardiac: [x]Chest pain [x]Palpitations/heart racing []Swelling of legs/ankles []Waking up at night short of breath []Difficulty sleeping flat Gastrointestinal: []Nausea/vomiting []Difficulty swallowing []Heartburn/acid reflux []Loss of appetite []Abd ominal pain Urologic: []Blood in urine []Frequent urination at night []Burning/painful urination []Difficulty wit h urination Objective BP 110/62 mmHg | Pulse 68 | Resp 16 | Ht 1.245 m (4' 1") | Wt 93.895 kg (207 lb) | BMI 60.5 8 kg/m2 | SpO2 92% General Appearance: Alert, cooperative, no distress, appears stated age, blunted affect Head: Normocephalic, without obvious abnormality, atraumatic Eyes: PERRL, conjunctiva clear, no scleral icterus, EOM's intact Ears: Normal TM's, external auditory canals, normal acuity Nose: Nares normal, septum midline, mucosa normal Mouth: No oral lesions or exudate Neck: Supple, symmetrical, no adenopathy Lungs: No accessory muscle use, breath sounds are slightly diminished bilaterally with pr olongation of the expiratory phase, no wheezes, crackles or rhonchi Chest Wall: No deformity Heart: Regular rate and rhythm, faint sysytolic murmur, no discernible split S2 on exam to day, no rub or gallop Abdomen: Soft, non-tender, non-distended, obese Extremities: No cyanosis, clubbing, 2+ lower extremity edema Pulses: Radial pulses 2+ and symmetric Skin: Warm and dry Lymph nodes: Cervical and supraclavicular nodes normal Data: Echocardiogram was performed on July 10, 2015 and results were reviewed in clinic syd burns. It shows a systolic PA pressure of 69 plus CVP. IVC did not appear to collapse, grade 1 d iastolic dysfunction. 03/26/2015 Peak RVSP 65-70mmHg 09/11/2014 RVSP 42-47 Ref. Range 07/09/2015 00:00 HCG SCREEN, URINE No range found Negative Preg Test, Ur No range found See Report Dr. Rivera's Comments 04/09/2015: Primary pulmonary hypertension -your pulmonary artery pressures improved significantly when you were first started on the Letairus. Your most recent echocardiogram shows an increase again in the pressure. This may be due to the smoking and/or low oxygen levels. -continue with NO smoking and using your oxygen with activity and at night. -repeat echocardiogram in 3-4 months after the February echocardiogram. If your pressures are st ill increased, I am recommending addition of Tadalafil to your regimen. This is a once a day drug that treats pulmonary hypertension. I will fax the order for the echocardiogram to you r local hospital. -please see Dr. Lainez after the July -no smoking when you are wearing oxygen -follow up in 1 year -6 minute walk test on oxygen -f/u echo in July with visit by local raimann machine operator. If further increase in estimated PASP by TTE and pt not volume overloaded and compliant with oxygen, would add PDE5I therapy to regimen. Discussed with pt but unclear if pt has understanding of the plan. -f/u TTE with bubble. Immunization History Administered Date(s) Administered INFLUENZA, TRIVALENT PRESERVATIVE FREE (PED/ADOL/ADULT) 07/31/2013, 07/30/2015 PNEUMOCOCCAL POLYSACCHARIDE 23-VALENT (PPSV23) 03/12/2015 Assessment ICD-10-CM ICD-9-CM 1. Primary pulmonary hypertension I27.0 416.0 Echocardiogram is basically back to baseline after prolonged efforts at improvement. Based on recommendations, we will add in Adcirca babita ly in addition to the Letairis. That being said, basic issues like not smoking, using her oxygen all the time (which she ca nnot due to her smoking), continued dietary compliance and exercise need to be adhered to fo r continued management. We will also check a BNP to ensure she is not fluid overloaded given edema on exam. 2. COPD (chronic obstructive pulmonary disease) J44.9 496 Mild disease, and is on Qvar and Ventolin. 3. GLORIA (obstructive sleep apnea) G47.33 327.23 On BiPAP with continued good compliance. 4. Hypoxemia R09.02 799.02 She is corrected on current oxygen levels. That being said, she has to take her oxygen off to go otuside to smoke, and has had some near syncopal episodes w ith significant hypoxemia when this occurs. Her caregivers are putting her oxygen back on, a nd doing follow up testing, which is appropriate. 5. Tobacco use disorder Z72.0 305.1 Ongoing. She seems unable to quit. She seems significan tly depressed lately, albeit less so that several months ago. 6. High risk medication use Z79.899 V58.69 She has been getting monthly tests don e. She also needs LFTs checked. Comprehensive Metabolic Panel Plan 1. Check BNP and CMP today. 2. Resume Adcirca 40mg daily in addition to the Letairis. 3. Discussed need for smoking cessation. 4. Six minute walk test ordered to be done at next visit. 5. Check overnight oximetry on 5L bled in to BiPAP. 6. Continue monthly urine tests. She was advised to call if new pulmonary symptoms were to develop. Return to clinic in 3 months, or sooner with concerns. CC: VIKAS Galicia, Lashae Rivera MD Portions of this report were transcribed using voice recognition software. Every effort wa s made to ensure accuracy; however, inadvertent computerized mold chipper errors may be pre sent. documented in t his encounter Plan of Treatment Not on filedocumented as of this encounter Procedures + +--------+ + + + | Procedure Name | Priori | Date/Time | Associated Diagnosis | Comments | | | ty | | | | + +--------+ + + + | DIAGNOSTIC REPORT - | | 08/15/2015 | | | | EXTERNAL SCAN | | 12:00 AM | | | | | | PDT | | | + +--------+ + + + | B TYPE NATRIURETIC | Routin | 08/08/2015 | Primary pulmonary | Results for this | | PEPTIDE | e | 3:00 PM | hypertension High | procedure are in the | | | | PDT | risk medication use | results section. | + +--------+ + + + | COMPREHENSIVE | Routin | 08/08/2015 | Primary pulmonary | Results for this | | METABOLIC PANEL | e | 3:00 PM | hypertension High | procedure are in the | | | | PDT | risk medication use | results section. | + +--------+ + + + | ECHO-EXTERNAL SCAN | | 07/10/2015 | Primary pulmonary | | | | | 12:00 AM | hypertension | | | | | PDT | | | + +--------+ + + + documented in this encounter Results B Type Natriuretic Peptide (08/08/2015 3:00 PM PDT) + +-------+ + + + | Component | Value | Ref Range | Performed | Pathologist | | | | | At | Signature | + +-------+ + + + | BNP | 99 | <100 pg/mL | [facility] | | | | [facility] | | | | | | [facility] - | | | | | | LABORATORY | | + +-------+ + + + + + | Specimen | + + | Blood | + + + + + + + | Performing | Address | City/State/Zipcode | Phone Number | | Organization | | | | + + + + + | [facility] | [address] | [place] | [phone] | | [facility] | | [address] | | | - LABORATORY | | | | + + + + + Comprehensive Metabolic Panel (08/08/2015 3:00 PM PDT) + + + + + + | Component | Value | Ref Range | Performed | Pathologist | | | | | At | Signature | + + + + + + | Na | 131 (L) | 136 - 149 | [facility] | | | | | mmol/L | [facility] | | | | | | [facility] | | | | | | CENTER - | | | | | | LABORATORY | | + + + + + + | K | 4.2 | 3.5 - 5.1 | [facility] | | | | | mmol/L | [facility] | | | | | | MED[facility] | | | | | | CENTER - | | | | | | LABORATORY | | + + + + + + | Cl | 97 (L) | 98 - 109 mmol/L | [facility] | | | | | | [facility] | | | [facility] | | [facility] | | | | | | CENTER - | | | | | | LABORATORY | | + + + + + + | CO2 | 28 | 24 - 31 mmol/L | [facility] | | | | | | [facility] | | | | | | [facility] | | | | | | C[facility] - | | | | | | LABORATORY | | + + + + + + | Anion Gap | 6 | 3 - 16 mmol/L | [facility] | | | | | | [facility] | | | [facility] | | [facility] | | | | | | CENTER - | | | | | | LABORATORY | | + + + + + + | Glucose | 94 | 70 - 109 mg/dL | [facility] | | | | | | [facility] | | [facility] | | | [facility] | | | | | | CENTER - | | | | | | LABORATORY | | + + + + + + | BUN | 13 | 7 - 18 mg/dL | [facility] | | | | | | [facility] | | | | | | [facility] | | | | | | CENTER - | | | | | | LABORATORY | | + + + + + + | Creatinine | 0.91 | 0.60 - 1.30 | [facility] | | | | | mg/dL | [facility] | | [facility] | [facility] | | | | | | CENTER - | | | | | | LABORATORY | | + + + + + + | eGFR, | >60Comment: GLOMERULAR | >=60 | [facility] | | | non- | FILTRATION | mL/min/1.73m2 | [facility] | | | Martiniqu[place] | RATE,ESTIMATED | | MEDICAL | | | | mL/min/1.14u3Ykin than | | CENTER - | | | | 60 Chronic kidney | | LABORATORY | | | | disease,if found over a | | | | | | 3-month period.Less than | | | | | | 15 Kidney failureFor | | | | | | | | | | | | Americans,multiply the | | | | | | calculated GFR by 1.21. | | | | | | | | | | + + + + + + | Calcium | 9.5 | 8.3 - 10.5 | [facility] | | | | | mg/dL | [facility] | | [facility] | | | [facility] | | | | | | CENTER - | | | | | | LABORATORY | | + + + + + + | Albumin | 3.7 | 3.2 - 5.0 g/dL | [facility] | | | | | | [facility] | | | | | | [facility]ICAL | | | | | | CENTER - | | | | | | LABORATORY | | + + + + + + | Bilirubin | 0.5 | 0.1 - 1.5 mg/dL | [facility] | | | Total | | | [facility] | | | | | | MEDICAL | | | | | | CENTER - | | | | | | LABORATORY | | + + + + + + | Total | 6.8 | 6.0 - 7.8 g/dL | [facility] | | | Protein | | | [facility] | | | | | | MEDICAL | | | | | | CENTER - | | | | | | LABORATORY | | + + + + + + | AST | 19 | 10 - 42 U/L | [facility] | | | | | | [facility] | | | | | | MEDICAL | | | | | | CENTER - | | | | | | LABORATORY | | + + + + + + | ALT | 12 | 6 - 45 U/L | [facility] | | | | | | [facility] | | | | | | MEDICAL | | | | | | CENTER - | | | | | | LABORATORY | | + + + + + + | Alkaline | 60 | 40 - 110 U/L | [facility] | | | Phosphatase | | | [facility] | | | | | | MEDICAL | | | | | | CENTER - | | | | | | LABORATORY | | + + + + + + | Globulin | 3.1 | g/dL | [facility] | | | | | | [facility] | | | | | | [facility] | | | | | | CENTER - | | | | | | LABORATORY | | + + + + + + | Albumin/Clarice | 1.2 | | [facility] | | | bulin Ratio | | | [facility] | [facility] | | [facility] | | | | | | CENTER - | | | | | | LABORATORY | | + + + + + + | BUN/Creatin | 14.3 | | [facility] | | | ine Ratio | | | [facility] | [facility] | [facility] | | | | | | CENTER - | | | | | | LABORATORY | | + + + + + + + + | Specimen | + + | Blood | + + + + + + + | Performing | Address | City/State/Zipcode | Phone Number | | Organization | | | | + + + + + | [facility] | [address] | [place], [place] | [phone] | | [facility] | | [address] | | | - LABORATORY | | [...]
--- OUTSIDE RECORDS SUMMARY | ~2020-07-30 | XMS | Encounter Summary ---
Demographics + + + | Address | [address] | | | [place] [address] | + + + | Home Phone | | + + + | Preferred Language | Unknown | + + + | Marital Status | Single | + + + | Scientologist Affiliation | [id number] | + + + | Race | White | + + + | Ethnic Group | Not or | + + + Author + + + | Author | [facility] | | | and [place] | + + + | Organization | [facility] | | | and [place] | + + + | Address | Unknown | + + + | Phone | Unavailable | + + + Support + + + + + | Name | Relationship | Address | Phone | + + + + + | [employer] | ECON | [id number] | | | | | Unknown | | + + + + + Care Team Providers + +------+ + | Care Crop Or Livestock Tenant Farmer Name | Role | Phone | + +------+ + | Yuni Shrestha | PCP | | + +------+ + Encounter Details +--------+ + + + + | Date | Type | Department | Care Team | Description | +--------+ + + + + | 02/02/ | Hospital | [facility] | [place], | Primary pulmonary | | 2016 | Encounter | MED CTR PULMONARY | Vera Farrar MD | hypertension | | | | FUNCTION [address] | | | | | | [place], | | | | | | [place] [address] | | | | | | [phone] | | | +--------+ + + + [...] + + + +---------+ + + | [place] Starch POWD | by Does not apply [...] mouth every morning | | | | 7 | | LEVOTHROID) 175 MCG | (before breakfast). | | | | | | tablet | | | | | | + + + +---------+ + + | meloxicam (MOBIC) | Take 15 mg by mouth | | 0 | | | | 15 mg tablet | Daily. | | | | 0 | + + + +---------+ + + | [place]-3 Fatty | Take by mouth. | | [...] + | PFT PULMONARY | BHAVIN | 02/03/2016 | Primary pulmonary | | | FUNCTION TESTING | | 2:56 PM | hypertension | | | ORDERS | | PDT | | | + +--------+ + + + documented in this encounter Visit Diagnoses + + | Diagnosis | + + | Primary pulmonary hypertension | + + documented in this encounter"
--- OUTSIDE RECORDS SUMMARY | ~2020-07-30 | XMS | Encounter Summary ---
Demographics + + + | Address | [address] | | | [place] [address] | + + + | Home Phone | | + + + | Preferred Language | Unknown | + + + | Marital Status | Single | + + + | Sabianism Affiliation | NRP | + + + | Race | White | + + + | Ethnic Group | Not or | + + + Author + + + | Author | [facility] | + + + | Organization | [facility] | + + + | Address | Unknown | + + + | Phone | Unavailable | + + + Support + + +---------+ + | Name | Relationship | Address | Phone | + + +---------+ + | Lidia Thibodeaux | ECON | Unknown | | + + +---------+ + Care Team Providers + +------+ + | Care Home Assessment Nurse Name | Role | Phone | + +------+ + | Yuni Shrestha | PCP | | + +------+ + Encounter Details +--------+ + + + + | Date | Type | Department | Care Team | Description | +--------+ + + + + | 01/31/ | Documentati | Pulmonary & | Alexander Hays MD | | | 2020 | on | Critical Care | [address] | | | | | Medicine at | [facility], | | | | | [facility] | [place] [address] | | | | | [address] | [phone] | | | | | [facility] | | | | | | [facility], 3rd Floor | | | | | | [place], [place] | | | | | | [address] | | | | | | [phone] | | | +--------+ + + + [...] this encounter Miscellaneous Notes Telephone Encounter - Alexander Hays MD - 02/01/2020 2:17 PM PDTI spoke with Dr. Chapo Costello DO at [facility] in [facility]. Ms. Rowley is a 54-year-old lady wi th known pulmonary artery hypertension who gets healthcare through [facility] for pulmo nary artery hypertension and was last seen in August 2019. She presented to [facility] with three days history of cold and cough. She was noted to have bilateral infiltrates very suggestive of CoVID-19 however her initial test was negative . She is on baseline oxygen 4 L per minute however with bilateral pulmonary infiltrates or o xygen requirements of increased and currently she is on CPAP 15 cm H2O and 70% of FIO2 oxyge n. She's also been treated with antibiotics for pneumonia as well as oseltamivir. Patients B COMMUNITY DEVELOPMENT AIDE level was 83. abg 7.43, 45, 62 on 70% of FIO2 and CPAP. They are going to diurese patient . I requested that Dr. Costello get in touch with [facility] to see if they would acc ept this patient in transfer, especially if she gets worse. We discussed the fact that she m ay require intubation for transfer. My recommendation was that he consider all CoVID precaut ions for intubation in view of the fact that we don't have a clear source for her bilateral pulmonary infiltrates. I have asked him to contact his back if there are any further issues. documented in this encounter Plan of Treatment Not on filedocumented as of this encounter Visit Diagnoses Not on filedocumented in this encounter"
--- OUTSIDE RECORDS SUMMARY | ~2020-07-30 | XMS | Encounter Summary ---
Demographics + + + | Address | [address] | | | [place] [address] | + + + | Home Phone [...] Author + + + | Author | [facility] | | | and [place] | + + + | Organization | [facility] | | | and [place] | + + + | Address | Unknown | + + + | Phone | Unavailable | + + + Support + + + + + | Name | Relationship | Address | Phone | + + + + + | [employer] | ECON | [id number] | | | | | Unknown | | + + + + + Care Team Providers + +------+ + | Care Sales Manager Prearranged Funerals Name | Role | Phone | + +------+ + | Yuni Shrestha | PCP | | + +------+ + Encounter Details +--------+ + + + + | Date | Type | Department | Care Team | Description | +--------+ + + + + | 01/11/ | Abstract | [facility] [place] | [place], | | | 2015 | | PULMONARY [address] | Vera Farrar MD | | | | | [place], | | | | | | [place] [address] | | | | | | [phone] | | | +--------+ + + + [...] | [facility] | [address] | [place], [place] | [phone] | | [facility] | | [address] | | | - LABORATORY | | | | + + + + + documented in this encounter Visit Diagnoses Not on filedocumented in this encounter"
--- OUTSIDE RECORDS SUMMARY | ~2020-07-30 | XMS | Encounter Summary ---
Demographics + + + | Address | [address] | | | [place] [address] | + + + | Home Phone | | + + + | Preferred Language | Unknown | + + + | Marital Status | Single | + + + | Evangelical Affiliation | 1009 | + + + | Race | White | + + + | Ethnic Group | Not or | + + + Author + + + | Author | [facility] | | | and [place] | + + + | Organization | [facility] | | | and [place] | + + + | Address | Unknown | + + + | Phone | Unavailable | + + + Support + + + + + | Name | Relationship | Address | Phone | + + + + + | [employer] | ECON | [id number] | | | | | Unknown | | + + + + + Care Team Providers + +------+ + | Care Photogravure Press Operator Name | Role | Phone | [...] | hypertension (HCC) | | | | [place], | [place] [address] | (Primary Dx) | | | | [place] [address] | [phone] | | | | | [phone] | | | +--------+ + + + [...] as of this encounter Plan of Treatment + + +--------+ [...]
--- OUTSIDE RECORDS SUMMARY | ~2020-07-30 | XMS | Encounter Summary ---
Demographics + + + | Address | [address] | | | [place] [address] | + + + | Home Phone [...] + | [employer] | ECON | [phone] | | | | | Unknown | | + + + + + Care Team Providers + +------+ + | Care Snowboard Designer Name | Role | Phone | + +------+ + PCP | Unavailable | + +------+ + Encounter Details +--------+ + + + + | Date | Type | Department | Care Team | Description | +--------+ + + + + | 04/06/ | Hospital | [facility] | Angel Carvajal | | | 2011 | Encounter | HOSPITAL EMERGENCY | MD Gabriella [address] [facility] | | | | | CENTER [address] | [facility] [address] | | | | | [address] [place] | [place], [place] | | | | | [address] | [id number] | | | | | [phone] | | | +--------+ + + + [...]
--- OUTSIDE RECORDS SUMMARY | ~2020-07-30 | XMS | Encounter Summary ---
Demographics + + + | Address | [address] | | | [place] [address] | + + + | Home Phone [...] Organization | [facility] | | | and [place] | + + + | Address | Unknown | + + + | Phone | Unavailable | + + + Support + + + + + | Name | Relationship | Address | Phone | + + + + + | [employer] | ECON | [phone] | | | | | Unknown | | + + + + + Care Team Providers + +------+ + | Care Claims Adjustor Name | Role | Phone | + [...] | Primary | Offenstein, | [address] | | | | | pulmonary | Vera B, | [place], | | | | | hypertension | MD [address] | [place] | | | | | ([facility]) | [address] | [address] | | | | | Procedures | MARIA DOLORESA ELO, | Phone: | | | | | ECHO | [place] [address] | [phone] | | | | | Complete | | Fax: | | | | | APPT | | [phone] | | | | | 03/18/14. | [...] | Primary | Offenstein, | [address] | | | | | pulmonary | Vera B, | [place], | | | | | hypertension | MD [address] | [place] | | | | | ([facility]) | [address] | [address] | | | | | Procedures | MARIA DOLORESA ELO, | Phone: | | | | | ECHO | [place] [address] | [phone] | | | | | Complete | | Fax: | | | | | APPT | | [phone] | | | | | 03/18/14. | | | | | | | DEFERRED T0 | | | | | | | 03/01/14 | | | +--------+--------+ + + + + Encounter Details +--------+ + + + + | Date | Type | Department | Care Team | Description | +--------+ + + + + | 03/12/ | Hospital | [facility] | [place], | Primary pulmonary | | 2013 | Encounter | MED CTR ECHO [address] | Vera Farrar MD | hypertension | | | | [address] | Maciel Silva, | | | | | [place] [address] | Technologist | | | | | [phone] | | | +--------+ + + + [...] | | | | | | | ([facility]) | | | | | | + [...] + + + +---------+ + + | [place] Starch POWD | by Does not apply [...] + + + +---------+ + + | [place]-3 Fatty | Take by mouth. | | [...] 08/06/20 | | | Therapy Supplies | [facility] office | | | 13 | 8 [...] Performed At | + + + | [facility] ECHOCARDIOGRAM REPORT | [place] | | STUDY DATE: 03/12/2014 PATIENT NAME: Margarita Rowley : | [facility] | | 1965 PCP: Gela Trimble [facility] | | HISTORY/DIAGNOSIS: PULM HTN A [...] | | S. Ananth Salguero MD PhD [facility] 03/12/2014 8:38 | | | Seat Cover Cutter: Hung Caro, RDCS, RVT, RDMS | | + + + + + | Procedure Note | + + | Roberto Salguero MD - 03/12/2014 6:05 PM PDT [facility] | | CENTERECHOCARDIOGRAM REPORTSTUDY DATE: 03/12/2014PATIENT NAME: Margarita Vora: | | 1965MRN: [id number]: Gela TrimbleCLINICAL HISTORY/DIAGNOSIS: PULM HTNA | | [...] | mmHgLA volume: 34 mLLA index: 18 mL/i2Wwvlbm Inflow DT: 290 msIVRT: 117 msValsalva: | | YES, TO NO EFFECTPWDTI S wave: 12.0 cm/sPWDTI E wave: 15.5 cm/sPWDTI A wave: 24.1 | | cm/sE/A Ratio: 0.643E/E Ratio: Signed by: Artie Salguero MD PhD [facility] 03/12/2014 | | 8:38 Seat Cover Cutter: Hung Caro, RDCS, RVT, RDMS | |Mitral [...] | |Signed by: Artie Salguero MD PhD [facility] | | 03/12/2014 8:38 | | | | | |Seat Cover Cutter: Hung Caro, JUANITOCS, RVT, RDMS | + + + + + + + | Performing | Address | City/State[facility] | Phone Number | | Organization | | | | + + + + + | [address] | [address] | [place] | [phone] | | [facility] | | [address] | | | - IMAGING | | | | + + + + + documented in this encounter Visit Diagnoses + + | Diagnosis | + + | Primary pulmonary hypertension | + + documented in this encounter"
--- OUTSIDE RECORDS SUMMARY | ~2020-07-30 | XMS | Encounter Summary ---
Demographics + + + | Address | [address] | | | [place] [address] | + + + | Home Phone [...] + | [employer] | ECON | [phone] | | | | | Unknown | | + + + + + Care Team Providers + +------+ + | Care Cryogenics Engineer Name | Role | Phone | + +------+ + PCP | Unavailable | + +------+ + Encounter Details +--------+ + + + + | Date | Type | Department | Care Team | Description | +--------+ + + + + | 02/15/ | Hospital | [facility] | Juliana Angeles | | | 2010 | Encounter | HOSPITAL LABORATORY | [address] | | | | | [address] [place] | [place] | | | | | [place], [place] | [place] | | | | | [address] | [address] | | | | | [phone] | [phone] | | | | | | | [...]
--- OUTSIDE RECORDS SUMMARY | ~2020-07-30 | XMS | Encounter Summary ---
Demographics + + + | Address | [address] | | | [place] [address] | + + + | Home Phone [...] Author + + + | Author | [facility] | | | and [place] | + + + | Organization | [facility] | | | and [place] | + + + | Address | Unknown | + + + | Phone | Unavailable | + + + Support + + + + + | Name | Relationship | Address | Phone | + + + + + | [employer] | ECON | [phone] | | | | | Unknown | | + + + + + Care Team Providers + +------+ + | Care Publication Director Name | Role | Phone | [...] | | | | | | | [place] XCAPSL | | | | | | [...] | +--------+ + + + + | 05/08/ | Anesthesia | [facility] | Scout Lagunas, | | | 2019 | Event | MED CTR OR INTRA OP | MD [address] | | | | | [address] | [place] | | | | | [place] | [address] | | | | | [address] | | | | | | [phone] | | | +--------+ + + + + Anesthesia Record + + + + + | Procedure Name | Responsible | Anesthesia Start | Anesthesia Stop Time | | | Anesthesiologist | Time | | + + + + + | Left EXTRACTION | Scout Lagunas MD | 05/08/20929 | 05/08/20 1004 | | CATARACT W/ LENS | | | | | IMPLANT (Left Eye) | | | | + + + + + +----+---+ + + | Da | T | Event | Comment | | te | i | | | | | m | | | | | e | | | +----+---+ + + | 07 | 0 | | | | /0 | 8 | | | | 9/ | 1 | | | | 20 | 3 | | | | 20 | | | | +----+---+ + + | | 0 | An Checkout | Pre-use anesthesia machine/equipment checkout. | | | 9 | | | | | 2 | | | | | 8 | | | +----+---+ + + | | 0 | An Start | Reassessment prior to anesthesia induction/procedure. | | | 9 | | | | | 3 | | | | | 0 | | | +----+---+ + + | | 0 | Pre-Procedu | | | | 9 | ral Timeout | | | | 3 | Completed | | | | 2 | | | +----+---+ + + | | 0 | An | | | | 9 | Induction | | | | 3 | | | | | 2 | | | +----+---+ + + | | 0 | Anesthesia | | | | 9 | Ready | | | | 3 | | | | | 4 | | | +----+---+ + + | | 0 | Breathing | | | | 9 | Spontaneous | | | | 3 | ly | | | | 6 | | | +----+---+ + + | | 0 | First | | | | 9 | Inc/Proc St | | | | 4 | | | | | 4 | | | +----+---+ + + | | 0 | an stop | | | | 9 | data | | | | 5 | | | | | 9 | | | +----+---+ + + | | 1 | An Stop | Patient handed off to recovery nurse. | | | 0 | | | | | 4 | | | +----+---+ + + +------+ | Meds | +------+ + +--------+ | Name | Total | + +--------+ | propofol | 35 mg | + +--------+ | lidocaine 2% | 35 mg | + +--------+ | lactated ringers (LR) infusion | 200 mL | + +--------+ + + | Name | + + | N2O Flow Rate (L/Min) | + + | O2 Flow Rate (L/Min) | + + | Insp O2 | + + | Air Flow Rate (L/Min) | + + + + | No blood administrations on file. | + + +--------+ + + + | Type | Details | Placement | Removal | +--------+ + + + | Periph | 05/08/20; 08; Right; Hand; | 05/08/20 0825 by | 05/08/20 1033 by | | eral | [id number] catheter system; | Janeth Norwood, | Kim Rowley RN | | IV | 20 gauge, 1 1/4 in length; | RN | | | | intradermal injection, tolerated | | | | | well; no longer indicated, | | | | | removed per physician, | | | | | catheter/device intact; short | | | | | term use; 05/08/20; 1033 | | | +--------+ + + + | Wound | 05/08/20; 940; Incision; Left; | 05/08/20 0941 by | 05/22/20 1521 by | | | eye; 05/22/20; 1521 | Diana Sandoval RN | Glory Campuzano RN | +--------+ + + + documented in this encounter Social History + + + +--------+ + [...] + + documented as of this encounter OR Notes Anesthesia Postprocedure Evaluation - Scout Lagunas MD - 05/08/2020 10:45 AM PDTFormatti ng of this note might be different from the original. ANESTHESIA POSTANESTHESIA EVALUATION Margarita Rowley 54 y.o. female 1965 [id number] Procedure(s) Left EXTRACTION CATARACT W/ LENS IMPLANT (Left Eye) Cooperates? Yes Mental Status Performs simple tasks. Respiratory Satisfactory - Airway patent (self maintained). Cardiovascular Satisfactory - Blood pressure and heart rate acceptable Temperature Satisfactory Pain Satisfactory N/V Control Satisfactory Hydration Satisfactory - No signs of dehydration Adverse Events ADVERSE EVENTS: No adverse events Vitals Value Taken Time Temp 36.4 C (97.5 F) 05/08/20 1003 Pulse 70 05/08/20 1030 Resp 16 05/08/20 1030 BP 103/63 05/08/20 1030 Arterial Line BP Arterial Line BP 2 SpO2 93 % 05/08/20 1030 Vitals shown include unvalidated device data. Electronically signed by Scout Lagunas MD 05/08/2020 10:45 AM PDT [facility] signed by Scout Lagunas MD at 07/2020 10:45 AM PDTAnesthesia Preprocedure Evaluation - Scout Lagunas MD - 05/08/2020 8: 10 AM PDT ANESTHESIA PREANESTHESIA EVALUATION Margarita Rowley 54 y.o. female 1965 [id number] Procedure(s): RIGHT EXTRACTION CATARACT W/ OR W/O LENS IMPLANT (Right Eye) Medical,anesthesia, drug, allergy histories reviewed, NPO status verified. Review of Systems / Med History Anesthesia History Emergently intubated in [place] 01/2020 -- videolaryngoscope used witho ut incident.. Cardiovascular (+) hypertension and essential and pulmonary . Pulmonary Severe pulmonary HTN 2L O2 at night 4L w/ exertion. Baseline dyspnea. COPD w/ multiple inhalers . (+) shortness of breath, supplemental oxygen, Chronic Obstructive Pulmonary Disease.(+) sle ep apnea. Gastrointestinal/Hepatic (+) acid reflux. Endocrine (+) obesity: Psychology (+) developmental delays. (+) psychiatric history of post-traumatic stress disorder. Physical Exam Airway MP II, TM >3 FB, Mouth opening >2 FB. Neck: full ROM, extends >30 degrees. Dental grossly normal except where noted below. CV Rhythm regular. Rate Normal. (-) murmur. Pulm Clear to auscultation bilaterally. (+) decreased breath sounds. Neuro grossly normal. Anesthesia Plan ASA: 4 (Severe Pulmonary HTN w/ Home O2, GLORIA, Developmental Delay) Type: MAC. Induction: Local anesthesia. Potential problems: None anticipated. Monitors: Standard ASA monitors. Consent statement: Anesthetic plan, alternatives, risks and benefits discussed with patient. pain, respiratory events, failed or inadequate block Consenting person understands and agrees to proceed. PARQ. MAC/TIVA with propofol and anxiolytics / opioids as needed / tolerated. Discussion distinc tly mentions that awareness is probable during the case, as Dr. Garcia often wants the patie nt to respond to commands.. Electronically Signed by: Scout Lagunas MD ESi date/time: 05/08/2020 8:10 AM PDT documented in this en counter Miscellaneous Notes Anesthesia Post-op Handoff - Scout Lagunas MD - 05/08/2020 10:04 AM PDTFormatting of thi s note might be different from the original. ANESTHESIA HANDOFF NOTE Margarita Rowley 54 y.o. female 1965 [id number] Left EXTRACTION CATARACT W/ LENS IMPLANT (Left Eye) HANDOFF NOTE Handoff Protocol Used: post-procedure handoff checklist completed The following were completed during the transfer of care: 1. Identification of patient 2. Identification of responsible practitioner (primary service) 3. Discussion of pertinent medical history 4. Discussion of the surgical/procedure course (procedure, reason for surgery, procedure pe rformed) 5. Intraoperative anesthetic management and issues/concerns 6. Expectations/plans for the early post-procedure period 7. Opportunity for questions and acknowledgement of understanding of report from receiving team Patient Location: Phase II Condition: sedated Airway/O2: other (see comments) Multimodal analgesia: multimodal analgesia not used between 6 hours prior to anesthesia sta rt to PACU discharge Multimodal analgesia not used reason: No medical reason exists for NOT using multimodal ro lgesia. Two or more GLORIA mitigation strategies used: perioperative obstructive sleep apnea intervent ions applied Comments: Supplemental Oxygen administered as necessary to maintain oxygen saturations abov e 92%. If the surgery does not typically require Narcotics then Multi-Modal Analgesia is not indic ated. The significant anesthesia concerns and VS in Epic were reviewed with the receiving team. Scout Lagunas MD 05/08/2020 10:04 AM PDT [facility]ronically signed by Scout Lagunas MD at 07/2020 10:04 AM PDTdocumented in this encounter Plan of Treatment Not on filedocumented as of this encounter Visit Diagnoses Not on filedocumented in this encounter Administered Medications + +---------+ +------+------+------+ | Medication Order | MAR | Action | Dose | Rate | Site | | | Action | Date | | | | + +---------+ +------+------+------+ | lactated ringers (LR) infusion | New Bag | 05/08/20 | | | | | at 10-100 mL/hr, Intravenous, | | 20 9:22 | | | | | CONTINUOUS, Starting Galilea 05/08/20 | | AM PDT | | | | | at 0830, TKO., Pre-op | | | | | | + +---------+ +------+------+------+ +---+---+ | | | +---+---+ + +-------+ +-------+---+---+ | lidocaine (PF) 2% injection | Given | 05/08/20 | 10 mg | | | | Intravenous, PRN, Starting Galilea | | 20 9:49 | | | | | 05/08/20 at 0932, Anesthesia | | AM PDT | | | | | Intra-op | | | | | | + +-------+ +-------+---+---+ +-------+ +-------+---+---+ | Given | 05/08/20 | 10 mg | | | | | 20 9:43 | | | | | | AM PDT | | | | +-------+ +-------+---+---+ | Given | 05/08/20 | 15 mg | | | | | 20 9:32 | | | | | | AM PDT | | | | +-------+ +-------+---+---+ +---+---+ | | | +---+---+ + +-------+ +-------+---+---+ | propofol (DIPRIVAN) injection | Given | 05/08/20 | 10 mg | | | | Intravenous, PRN, Starting Galilea | | 20 9:49 | | | | | 05/08/20 at 0932, Anesthesia | | AM PDT | | | | | Intra-op | | | | | | + +-------+ +-------+---+---+ +-------+ +-------+---+---+ | Given | 05/08/20 | 10 mg | | | | | 20 9:43 | | | | | | AM PDT | | | | +-------+ +-------+---+---+ | Given | 05/08/20 | 15 mg | | | | | 20 9:32 | | | | | | AM PDT | | | | +-------+ +-------+---+---+ +---+---+ | | | +---+---+ documented in this encounter"
--- OUTSIDE RECORDS SUMMARY | ~2020-07-30 | XMS | Encounter Summary ---
Demographics + + + | Address | [address] | | | [place] [address] | + + + | Home Phone [...] Author + + + | Author | [facility] | | | and [place] | + + + | Organization | [facility] | | | and [place] | + + + | Address | Unknown | + + + | Phone | Unavailable | + + + Support + + + + + | Name | Relationship | Address | Phone | + + + + + | [employer] | ECON | [phone] | | | | | Unknown | | + + + + + Care Team Providers + +------+ + | Care Dust Mop Maker Name | Role | Phone | + [...] Farrar MD | | | | | [place], | | | | | | [place] [address] | | | | | | [phone] | | | +--------+ + + + [...] that Margarita's neurologist is Dr.Fei Fajardo in [place], [place]. She has an appointment with him next month either the or .Electronical ly signed by Amanda Ellis at 03/12/2014 1:52 PM PDTdocumented in this encounter Plan of Treatment Not on filedocumented as of this encounter Visit Diagnoses Not on filedocumented in this encounter"
--- OUTSIDE RECORDS SUMMARY | ~2020-07-30 | XMS | Encounter Summary ---
Demographics + + + | Address | [address] | | | [place] [address] | + + + | Home Phone [...] Author + + + | Author | [facility] | | | and [place] | + + + | Organization | [facility] | | | and [place] | + + + | Address | Unknown | + + + | Phone | Unavailable | + + + Support + + + + + | Name | Relationship | Address | Phone | + + + + + | [employer] | ECON | [phone] | | | | | Unknown | | + + + + + Care Team Providers + +------+ + | Care Lens Cementer Name | Role | Phone | + +------+ + | Gela Trimble NP | PCP | | + +------+ + Encounter Details +--------+ + + + + | Date | Type | Department | Care Team | Description | +--------+ + + + + | 09/11/ | Hospital | [facility] | Fatou, | Primary pulmonary | | 2013 | Encounter | MED CTR PULMONARY | Vera Farrar MD | hypertension; COPD | | | | FUN[address] | | (chronic obstructive | | | | [place], | | pulmonary disease); | | | | [place] [address] | | Hypoxemia | | | | [phone] | | | +--------+ + + + [...] | | | | | | ([facility]) | | | | | | + [...] + + + +---------+ + + | [place] Starch POWD | by Does not apply [...] + + + +---------+ + + | [place]-3 Fatty | Take by mouth. | | [...] + documented as of this encounter Procedure Notes [facility] SC[facility] - 09/11/2014 12:00 AM PSTAssociated Order(s): DIAGNOSTIC REPORT - EXTERNAL [facility]AN [facility] - 08/31 12:00 AM PSTAssociated Order(s): DIAGNOSTIC REPORT - EXTERNAL SCANElectronically sign ed by [facility] at 09/20/2014 12:20 PM PSTdocumented in this encounter Plan of Treatment Not [...]
--- OUTSIDE RECORDS SUMMARY | ~2020-07-30 | XMS | Encounter Summary ---
Demographics + + + | Address | [address] | | | [place] [address] | + + + | Home Phone | | + + + | Preferred Language | Unknown | + + + | Marital Status | Single | + + + | Christianity Affiliation | 1009 | + + + | Race | White | + + + | Ethnic Group | Not or | + + + Author + + + | Author | [facility] | | | and [place] | + + + | Organization | [facility] | | | and [place] | + + + | Address | Unknown | + + + | Phone | Unavailable | + + + Support + + + + + | Name | Relationship | Address | Phone | + + + + + | [employer] | ECON | [phone] | | | | | Unknown | | + + + + + Care Team Providers + +------+ + | Care Molded Goods Operator Name | Role | Phone | [...] | apnea (adult) | | | | [place], | | (pediatric) (Primary | | | | [place] [address] | | Dx) | | | | [phone] | | | +--------+ + + + [...]
--- OUTSIDE RECORDS SUMMARY | ~2020-07-30 | XMS | Encounter Summary ---
Demographics + + + | Address | [address] | | | [place] [address] | + + + | Home Phone [...] + | [employer] | ECON | [phone] | | | | | Unknown | | + + + + + Care Team Providers + +------+ + | Care Mica Machine Operator Name | Role | Phone | + +------+ + | No, Physician | PCP | Unavailable | + +------+ + Reason for Visit +--------+--------+ + | Reason | Onset | Comments | | | Date | | +--------+--------+ + | Other | 03/14/ | confirming O2 bleed in to BIPAP | | | 2014 | | +--------+--------+ [...] in to BIPAP) | | | | [place], | | | | | | [place] [address] | | | | | | [phone] | | | +--------+ + + + [...] Telephone Encounter - Tarah Nino RN - 03/14/2015 3:15 PM PDTFaxed this message to Kamala at [phone]. P M PDTTelephone Encounter - Vera Lainez MD - 03/14/2015 12:34 PM PDTI was told yes terday she was on 4L and it had been changed by the sleep center. They should therefore do w hat the sleep center had told them to do previously. elephone Encounter - Tarah Nino RN - 11:44 AM PDTStefanie called from [facility] to confirm that Margarita is to continue noc turnal O2 at 5 l/m bleed in to BIPAP as the office note from 03/12/15 states "continue O2 at 4 l/m bleed in to BIPAP." Please advise.Electronically signed by Tarah Nino RN at 11:47 AM PDTdocumented in this encounter Plan of Treatment Not on filedocumented as of this encounter Visit Diagnoses Not on filedocumented in this encounter
--- OUTSIDE RECORDS SUMMARY | ~2020-07-30 | XMS | Encounter Summary ---
Demographics + + + | Address | [address] | | | [place] [address] | + + + | Home Phone | | + + + | Preferred Language | Unknown | + + + | Marital Status | Single | + + + | Taoism Affiliation | 1009 | + + + | Race | White | + + + | Ethnic Group | Not or | + + + Author + + + | Author | [facility] | | | and [place] | + [...] + | [employer] | ECON | [phone] | | | | | Unknown | | + + + + + Care Team Providers + +------+ + | Care Quantitative Consultant Name | Role | Phone | + +------+ + PCP | Unavailable | + +------+ + Encounter Details +--------+ + + + + | Date | Type | Department | Care Team | Description | +--------+ + + + + | 02/27/ | Hospital | [facility] | [facility] | | | 2011 | Encounter | HOSPITAL LABORATORY | [address] | | | | | [address] [place] | [place] | | | | | [place], [place] | [place] | | | | | [address] | [address] | | | | | [phone] | [phone] | | | | | | | [...]
--- OUTSIDE RECORDS SUMMARY | ~2020-07-30 | XMS | Encounter Summary ---
Demographics + + + | Address | [address] | | | [place] [address] | + + + | Home Phone [...] Author + + + | Author | [facility] | | | and [place] | + + + | Organization | [facility] | | | and [place] | + + + | Address | Unknown | + + + | Phone | Unavailable | + + + Support + + + + + | Name | Relationship | Address | Phone | + + + + + | [employer] | ECON | [phone] | | | | | Unknown | | + + + + + Care Team Providers + +------+ + | Care Conveyor Feeder Name | Role | Phone | + [...] | Primary | Off[place], | [address] | | | | | pulmonary | Vera B, | [place], | | | | | hypertension | MD [address] | [place] | | | | | ([facility]) | [address] | [address] | | | | | Procedures | [place], | Phone: | | | | | ECHO | [place] [address] | [phone] | | | | | Complete | | Fax: | | | | | | | [phone] | +--------+--------+ + + + + Reason [...] | Primary | Offenstein, | [address] | | | | | pulmonary | Vera B, | [place], | | | | | hypertension | MD [address] | [place] | | | | | ([facility]) | [address] | [address] | | | | | Procedures | [place], | Phone: | | | | | ECHO | [place] [address] | [phone] | | | | | Complete | | Fax: | | | | | | | [phone] | +--------+--------+ + + + + Encounter Details +--------+ + + + + | Date | Type | Department | Care Team | Description | +--------+ + + + + | 09/11/ | Hospital | [facility] | [place], | Primary pulmonary | | 2013 | Encounter | [facility] ECHO [address] | Vera Farrar MD | hypertension | | | | [address] [place] | Taya Kirby, | | | | | [place] [address] | Technologist | | | | | [phone] | | | +--------+ + + + [...] pressure on | 1 | 0 | 02//20 | | | | BiPAP to 16/5 [...] + + + +---------+ + + | [place] Starch POWD | by Does not apply [...] + + + +---------+ + + | [place]-3 Fatty | Take by mouth. | [...] Performed At | + + + | [facility] ECHOCARDIOGRAM REPORT | [facility] | | STUDY DATE: 09/11/2014 PATIENT NAME: Margarita Rowley : | [facility] | | 1965 PCP: Gela Trimble NP | [facility] | | CLINICAL HISTORY/DIAGNOSIS: Pulmonary hypertension [...] S. | | | Ananth Salguero MD [facility] 09/11/2014 10:45 | | | Sharepoint Engineer: Hung Caro, RDCS, RVT, RDMS | | + + + + + | Procedure Note | + + | Roberto Salguero MD - 09/12/2014 9:12 AM [facility] | | CENTERECHOCARDIOGRAM REPORTSTUDY DATE: 09/11/2014PATIENT NAME: Margarita MooreB: | | 1965MRN: [id number]: Gela Mistry Nai, NPCLINICAL HISTORY/DIAGNOSIS: | | Pulmonary hypertensionA transthoracic echocardiogram [...] PP mmHgLA volume: 30 mLLA index: 16 mL/k8Oyxked Inflow DT: 272 | | msIVRT: 110 msValsalva: Not neededPWDTI S wave: 7.2 cm/sPWDTI E wave: 8.0 cm/sPWDTI | | A wave: 10.4 cm/sE/A Ratio: 0.769E/E Ratio: 10.63Signed by: Artie Salguero MD | | PhD FAC 09/11/2014 10:45 Sharepoint Engineer: Hung Caro, RDCS, RVT, RDMS | |Tricuspid [...] | |Signed by: Artie Salguero MD PhD [facility] | | 09/11/2014 10:45 | | | | | |Sharepoint Engineer: Hung Caro, JUANITOCS, RVT, RDMS | + + + + + + + | Performing | Address | City/State/Zipcode | Phone Number | | Organization | | | | + + + + + | [address] | [address] | [place] | [phone] | | [facility] | | [address] | | | - IMAGING | | [...]
--- OUTSIDE RECORDS SUMMARY | ~2020-07-30 | XMS | Encounter Summary ---
Demographics + + + | Address | [address] | | | [place] [address] | + + + | Home Phone [...] + | [employer] | ECON | [phone] | | | | | Unknown | | + + + + + Care Team Providers + +------+ + | Care Easement Worker Name | Role | Phone | [...] in to BIPAP) | | | | [place], | | | | | | [place] [address] | | | | | | [phone] | | | +--------+ + + + [...] PM PDTFaxed this message to Kamala at [phone]. P M PDTTelephone Encounter - Vera Lainez MD - 03/14/2015 12:34 PM PDTI was told yes terday she was on 4L and it had been changed by the sleep center. They should therefore do w hat the sleep center had told them to do previously. elephone Encounter - Tarah Nino RN - 11:44 AM PDTStefanie called from [employer] to confirm that Margarita is to [...]
--- OUTSIDE RECORDS SUMMARY | ~2020-07-30 | XMS | Encounter Summary ---
Demographics + + + | Address | [address] | | | [place] [address] | + + + | Home Phone [...] + + + | Author | [facility] | | | and [place] | + + + | Organization | [facility] | | | and [place] | + + + | Address | Unknown | + + + | Phone | Unavailable | + + + Support + + + + + | Name | Relationship | Address | Phone | + + + + + | [employer] | E[place] | [phone] | | | | | Unknown | | + + + + + Care Team Providers + +------+ + | Care Spiral Tube Winder Name | Role | Phone | [...] | | | | ABDIRASHID BROTHERS | [facility] [place] | | | | | [place] | [address] | | | | | [address] | [phone] | | | | | [phone] | | | +--------+ + + + [...]
--- OUTSIDE RECORDS SUMMARY | ~2020-07-30 | XMS | Encounter Summary ---
Demographics + + + | Address | [address] | | | [place] [address] | + + + | Home Phone [...] | Organization | [facility] | | | and [place] | + + + | Address | Unknown | + + + | Phone | Unavailable | + + + Support + + + + + | Name | Relationship | Address | Phone | + + + + + | [employer] | E[place] | [phone] | | | | | Unknown | | + + + + + Care Team Providers + +------+ + | Care Landfill Gas Technician Name | Role | Phone | [...] | | | Pulmonology | obstructive | MECHANICAL PROCESS ENGINEER [address] | MD | | | | | pulmonary | [address] | | | | | | disease, | [place], | | | | | | unspecified | [place] [address] | | | | | | (HCC) | Phone: | | | | | | Procedures | [phone] | | | | | | F/U | Fax: | | | | | | | [phone] | | +--------+--------+ + + + + Encounter Details +--------+---------+ + + + | Date | Type | Department | Care Team | Description | +--------+---------+ + + + | 11/07/ | Office | [facility] | [place], | Primary pulmonary | | 2016 | Visit | PULMONARY [address] | Vera Farrar MD | hypertension | | | | [place], | | (Primary Dx); [place] | | | | [place] [address] | | (obstructive sleep | | | | [phone] | | apnea); Hypoxemia; | | | [...] Instructions Patient Instructions Vera Lainez MD - 11/07/2015 3:23 PM PSTIncrease [...] Diagnosis Date COPD (chronic obstructive pulmonary disease) ([facility]) moderate, FEV1 1.40 (59%) Pulmonary hypertension ([facility]) severe, class 1, class 2, class 3 Bipolar disorder ([facility]) PTSD (post-traumatic stress disorder) Osteoarthritis Obstructive sleep apnea AHI 64.2 Vitamin D deficiency GERD (gastroesophageal reflux disease) Hypothyroidism Seizure disorder ([facility]) Developmental delay Hypoxemia on 2L at rest, 4L with exertion Female stress incontinence Pyelonephritis Hypertension Impulse control disorder Hyperlipidemia Obesity Alcohol abuse Cocaine abuse Past Surgical History Past Surgical History Procedure Laterality Date Mouth surgery 2 teeth removed Cardiac catherization Social History: History Social History Marital Status: Single Spouse Name: N/A Number of Children: N/A Years of Education: N/A Occupational History Disabled. [employer] Social History Main Topics Smoking status: Current Every Day Smoker -- 1.00 packs/day for 20 years Types: Cigarettes Smokeless tobacco: Never Used Alcohol Use: No Drug Use: No Sexual Activity: None Other Topics Concern None Social History Narrative Lives at [place]. Allergies: Allergies Allergen Reactions Erythromycin Metronidazole Penicillins [...] TABS Take 2,000 Units by mouth Daily. [place] Starch POWD by Does not apply route [...] mg onto the skin every 24 hours. [place]-3 Fatty Acids (SEA-OMEGA 30) 1200 MG CAPS [...] breath sounds are diminished bilaterally, no wheezes, scrap baler ckles or rhonchi Chest Wall: No deformity [...] compliance, not using her oxygen appropriately. * [facility] ([facility]) Pulmonary Function Testing - AMB Referral [...] made to ensure accuracy; however, inadvertent computerized telephone answerer errors may be pre sent. documented in [...] | | | | | | [facility] | [facility] | | | | MEDICAL | | | | | | CENTER - | | | | | | LABORATORY | | + + + + + + | Glucose | 91 | 70 - 109 mg/dL | [facility] | | | | | | [facility] | | | | | [facility] | | | | | | CENTER - | | | | | | LABORATORY | | + + + + + + | BUN | 15 | 7 - 18 mg/dL | [facility] | | | | | | [facility] | | | | | | [facility]ICAL | | | | | | CENTER - | | | | | | LABORATORY | | + + + + + + | Creatinine | 1.02 | 0.60 - 1.30 | [facility] | | | | | mg/dL | [facility] | | | | | | MEDICAL | | | | | | CENTER - | | | | | | LABORATORY | | + + + + + + | eGFR, | 57 (L)Comment: | >=60 | [facility] | | | non- | GLOMERULAR FILTRATION | mL/min/1.73m2 | [facility] | | | Lebanese | RATE,ESTIMATED | | MEDICAL | | | | mL/min/1.17j7Pigs than | | CENTER - | | [...] | | | | | mg/dL | [facility] | | | | | | MEDICAL | | | | | | CENTER - | | | | | | LABORATORY | | + + + + + + | Albumin | 4.0 | 3.2 - 5.0 g/dL | [facility] | | | | | | [facility] | | | | | | MEDICAL | | | | | | CENTER - | | | | | | LABORATORY | | + + + + + + | Bilirubin | 0.4 | 0.1 - 1.5 mg/dL | [facility] | | | Total | | | [facility] | | [...] [address] | [place] | [phone] | | [facility] | | [address] | | | - LABORATORY | | | | + + + + + CBC with Differential (11/07/2015 3:37 PM PST) + +-------+ + + + | Component | Value | Ref Range | Performed | Pathologist | | | | | At | Signature | + +-------+ + + + | White Blood | 5.6 | 4.0 - 11.0 K/uL | [facility] | | | Cells | | | [facility] | | | | | | MEDICAL | | | | | | CENTER - | | | | | | LABORATORY | | + +-------+ + + + | Red Blood | 4.10 | 3.70 - 5.20 | [facility] | | | Cells | | M/uL | [facility] | | | | | | MEDICAL | | | | | | CENTER - | | | | | | LABORATORY | | + +-------+ + + + | Hemoglobin | 12.6 | 11.5 - 16.0 | [facility] | | | | | g/dL | [facility] | | | | | | [...] | | | | g/dL | [facility] | | | | [...] | | Monocytes | | K/uL | [facility] | [...] [address] | [place] | [phone] | | [facility] | | [address] | | | - LABORATORY | | [...]
--- OUTSIDE RECORDS SUMMARY | ~2020-07-30 | XMS | Encounter Summary ---
Demographics + + + | Address | [address] | | | [place] [address] | + + + | Home Phone [...] + | Organization | [facility] | | | and [place] | + + + | Address | Unknown | + + + | Phone | Unavailable | + + + Support + + + + + | Name | Relationship | Address | Phone | + + + + + | [employer] | E[place] | [phone] | | | | | Unknown | | + + + + + Care Team Providers + +------+ + | Care Artists' Model Name | Role | Phone | + +------+ + PCP | Unavailable | + +------+ + Encounter Details +--------+ + + + + | Date | Type | Department | Care Team | Description | +--------+ + + + + | 04/06/ | Hospital | [facility] | Angel Carvajal | | | 2011 | Encounter | HOSPITAL EMERGENCY | MD [place]ri[place] [address] [facility] | | | | | CENTER [address] | [facility] [address] | | | | | [address] [place] | [place], [place] | | | | | [address] | [id number] | | | | | [phone] | | | +--------+ + + + [...]
--- OUTSIDE RECORDS SUMMARY | ~2020-07-30 | XMS | Encounter Summary ---
Demographics + + + | Address | [address] | | | [place] [address] | + + + | Home Phone [...] Organization | [facility] | | | and [place] | + + + | Address | Unknown | + + + | Phone | Unavailable | + + + Support + + + + + | Name | Relationship | Address | Phone | + + + + + | [employer] | ECON | [phone] | | | | | Unknown | | + + + + + Care Team Providers + +------+ + | Care Postal Worker Name | Role | Phone | [...] | | | | | | | [place] [facility] | | | | | | [...] + + | 05/22/ | Hospital | [facility] | Angel Garcia | | | 2019 | Encounter | MED CTR OR INTRA OP | MD [address] | | | | | [address] | [place] | | | | | [place] | [place] [address] | | | | | [address] | [phone] | | | | | [phone] | | | +--------+ + + + [...] symptoms, immediately call your eye doctor or [facility] at (dial "9" after hours [...] + + +---------+ + + | NYSTATIN [id number] | as needed | | 0 | [...] Angel Garcia MD, 05/22/2020 2:10 PM PDT [facility] documented in t his encounter Miscellaneous Notes Op Note - Angel Garcia MD - 05/22/2020 3:12 PM PDTPre-op Diagnosis: 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 05/22/20 at 1521, | | | [...] ONCE PRN, | | | Wheezing, Starting [facility] 05/22/20 at | | | 1324, [...] PDT | | | | | Starting [facility] 05/22/20 at 1324, For | | | [...] PRN, Nausea, Vomiting, | | | Starting [facility] 05/22/20 at 1521, | | | [...] | | | | | Incision, Starting [facility] 05/22/20 at | | | | [...]
--- OUTSIDE RECORDS SUMMARY | ~2020-07-30 | XMS | Encounter Summary ---
Demographics + + + | Address | [address] | | | [place] [address] | + + + | Home Phone | | + + + | Preferred Language | Unknown | + + + | Marital Status | Single | + + + | Catholic Affiliation | 1009 | + + + | Race | White | + + + | Ethnic Group | Not or | + + + Author + + + | Author | [facility] | | | and [place] | + + + | Organization | [facility] | | | and [place] | + + + | Address | Unknown | + + + | Phone | Unavailable | + + + Support + + + + + | Name | Relationship | Address | Phone | + + + + + | [employer] | ECON | [phone] | | | | | Unknown | | + + + + + Care Team Providers + +------+ + | Care Gear Tester Name | Role | Phone | + +------+ + | Shanice Huang MD | PCP | | + +------+ + Reason for Visit + + + | Reason | Comments | + + + | CPAP Follow Up | | + + + Evaluate & Treat (Routine) +--------+--------+ + + + + | Status | Reason | Specialty | Diagnoses / | Referred By | Referred To | | | | | Procedures | Contact | Contact | +--------+--------+ + + + + | Closed | | Physician | Diagnoses | Reina, | Jacky Calderon | | | | Fourdrinier Machine Tender / | Obstructive | Shanice Paez, | D, PA [address] | | | | Sleep | sleep apnea | [address] | [place] | | | | Medicine | (adult) | [place] | [place], | | | | | (pediatric) | [place], | [place] [address] | | | | | 2 mo cpap | [place] | Phone: | | | | | follow up, | [address] | [phone] | | | | | bring | Phone: | Fax: | | | | | equip/AO- | [phone] | [phone] | | | | | new machine | Fax: | | | | | | Procedures | [phone] | | | | | | 05/30 | | | | | | | PENDING PCP | | | | | | | REFERRAL | | | | | | | OFFICE VISIT | | | | | | | EXTENDED | | | | | | | JSK | | | +--------+--------+ + + + + Encounter Details +--------+---------+ + + + | Date | Type | Department | Care Team | Description | +--------+---------+ + + + | 04/16/ | [facility] | [facility] | Jacky Calderon PA | Primary central | | 2019 | Visit | SLEEP DISORDER [address] | [address] | sleep apnea (Primary | | | | [address] | [place], [place] | Dx) | | | | [place] [address] | [address] | | | | | [phone] | | | +--------+---------+ + + + [...] Instructions Patient Instructions Jacky Calderon PA - 04/16/2019 1:00 PM PDT1. Wear BIPAP 100% of the time asleep 2. Avoid naps during the day 3. Keep a consistent sleep and wake schedule 4. Stay active during the day documented in this encounter Progress Notes Jacky Calderon PA - 04/16/2019 1:00 PM PDT Subjective: Patient ID: Margarita Rowley is a 53 y.o. female. HPI last office visit: 06/14/2018 date of polysomnography: 03/13/2013 at [facility] AHI: 64.2 O2%: n/a Machine type: Respironics DreamStation Auto BiPAP Mask type: ResMed Quattro FX full face mask DME: [facility] [place] pressure: 16/5 cm with backup rate of 8 bpm and O2 at 5 L/min Nights using BiPAP: 66/75 % of nights >4 hours: 86.7% average usage (all nights): 7:25 average usage (nights used): 8:26 AHI: 14.4 Jessie comes in for BiPAP compliance with her caregivers. She is wearing her BiPAP regularly for the duration of her sleep. Her BiPAP has become a regular part of her sleep routine. She replaced her machine two months ago. She feels that her new BiPAP is working well for h er. She continues to have problems with being tired during the day and struggles with getting t o sleep at night at times. She is often inactive during the day and naps multiple times. W e again discussed having her avoid naps during the day, keeping a consistent sleep schedule and using her BiPAP 100% of the time she is asleep. I have discussed the download in detail. This shows that her sleep apnea is controlled, wi th an AHI of 8.6. It also shows that her leaks are controlled. It shows that she is wearin g her BiPAP >4 hours for 76.7% of the nights during 30 consecutive nights. BP 100/70 | Pulse 54 | Resp 16 | Wt 81.1 kg (178 lb 12.7 oz) | SpO2 94% | BMI 41.56 kg /m Review of Systems Objective: Physical Exam Assessment: Problem #1: PRIMARY CENTRAL SLEEP APNEA (VLE40-S98.31) This is controlled with BiPAP and oxygen at 5 L/min. Her compliance is going well with her Respironics DreamStation BiPAP. She has used her BiPAP >4 hours for 76.7% of the nights fo r 30 consecutive nights. 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 She often naps during the day and is inactive. Plan: 1. She is to continue with BiPAP indefinitely. 2. She is to replace her nasal pillows with a Respironics AmaraView full face mask. 3. She is to be more active during the day and avoid napping. 4. She is to keep a consistent [...]
--- OUTSIDE RECORDS SUMMARY | ~2020-07-30 | XMS | Encounter Summary ---
Demographics + + + | Address | [address] | | | [place] [address] | + + + | Home Phone [...] | Organization | [facility] | | | and [place] | + + + | Address | Unknown | + + + | Phone | Unavailable | + + + Support + + + + + | Name | Relationship | Address | Phone | + + + + + | [employer] | ECON | [id number] | | | | | Unknown | | + + + + + Care Team Providers + +------+ + | Care Doctor'S Assistant Name | Role | Phone | + +------+ + | Shanice Huang MD | PCP | | + +------+ + Reason for Visit + + + | Reason | Comments | + + + | Follow-up | | + + + Follow Up (Routine) + +--------+ + + + + | Status | Reason | Specialty | Diagnoses / | Referred By | Referred To | | | | | Procedures | Contact | Contact | + +--------+ + + + + | Authorized | | Pulmonary | Diagnoses | Reina, | Helen Astudillo | | | | Disease / | Primary | Shanice Paez, | MD Vikash | | | | Pulmonology | pulmonary | MD [address] | [address] | | | | | hypertension | [address] | [place] | | | | | (HCC) | [place], | [place], [place] | | | | | Hypoxemia | [place] | [address] Phone: | | | | | Procedures | [address] | [phone] | | | | | F/U APPT | Phone: | Fax: | | | | | SAHIB | [phone] | [phone] | | | | | 01/29/2020 | Fax: | | | | | | | [phone] | | + +--------+ + + + + Encounter Details +--------+---------+ + + + | Date | Type | Department | Care Team | Description | +--------+---------+ + + + | 07/23/ | Office | [facility] | Helen Astudillo | Chronic obstructive | | 2020 | Visit | PULMONARY [address] | MD Vikash [address] | pulmonary disease, | | | | [place], | [address] [place] | unspecified COPD | | | | [place] [address] | [place] [address] | type (HCC) (Primary | | | | [phone] | [phone] | Dx); Primary | | | | | | pulmonary | | | | | | hypertension (HCC); | | | | | | Chronic hypoxemic | | | | | | respiratory failure | | | | | | (HCC); Dyspnea on | | | | | | exertion | +--------+---------+ + + + Social History [...] + + + | Blood Pressure | 138/82 | 07/23/2020 11:45 AM | | | | | PDT | | + + + + + | Pulse | 180 | 07/23/2020 11:45 AM | | | | | PDT | | + + + + + | Temperature | 36.4 C (97.6 F) | 07/23/2020 11:45 AM | | | | | PDT | | + + + + + | Respiratory Rate | 22 | 07/23/2020 11:45 AM | | | | | PDT | | + + + + + | Oxygen Saturation | 91% | 07/23/2020 11:45 AM | | | | | PDT | | + + + + + | Inhaled Oxygen | - | - | | | Concentration | | | | + + + + + | Weight | 89.2 kg (196 lb 10.4 | 07/23/2020 11:45 AM | | | | oz) | PDT | | + + + + + | Height | 154.9 cm (5' 1") | 07/23/2020 11:45 AM | | | | | PDT | | + + + + + | Body Mass Index | 37.16 | 07/23/2020 11:45 AM | | | | | PDT | | + + + + + documented in this encounter Progress Notes Helen Astudillo MD - 07/23/2020 11:45 AM PDT Subjective: Margarita Rowley is a 54 y.o. female who presents to the clinic with her caregiver with a c hief complaint of Follow-up HPI 54 y.o. female with past medical history of Group 1 and 3 pulmonary HTN, COPD, bipolar diso rder who presents for follow up. who presents for follow up. - Patient last seen in pulmonary clinic 04/16/2020. - Patient is followed by Dr. Lashae Rivera, at [facility] in [place], [place] for pulmona ry HTN. - In the interim, she was seen in the ER and treated for bronchitis. After completing antib iotics, she notes that hemoptysis improved. - SOB with exertion has gradually worsened overtime. Patient has become more sedentary due to dizziness with ambulation. She spends most of her time in her recliner chair or in bed. - Cough is improved. She still has slight cough related to post-nasal drip symptoms. - No wheezing. - She often falls asleep in her chair and does not put her bipap back on. Patient has been encouraged by her caregivers to sleep in bed so bipap can be utilized. - She is on 2L O2 at rest, 4L O2 with ambulation, 5L O2 with Bipap. - Respiratory medications listed below. No regular PRN albuterol. - For her pulmonary hypertension she takes: tadalafil 20mg daily, Uptravi 1600mg BID (now a t full dose). Respiratory medications Nasal Agents - Misc. Disp Start End sodium chloride (OCEAN) 0.65% nasal spray 1 Bottle 12/11/2014 Sig: use as directed per package instructions as needed for congestion or dryness during t day. Class: Print Expectorants Disp Start End guaiFENesin (ROBAFEN) 100 mg/5 mL syrup Sig - Route: Take 200 mg by mouth 4 times daily as needed for Cough. - Oral Class: Historical Med Sympathomimetics Disp Start End albuterol (VENTOLIN HFA) 90 mcg/puff inhaler Sig - Route: Inhale 2 puffs into the lungs every 4 hours as needed for Wheezing or Shortne ss of Breath. - Inhalation Class: Historical Med SYMBICORT 160-4.5 MCG/ACT inhaler 01/16/2019 Sig - Route: Inhale 2 puffs into the lungs 2 times daily. - Inhalation Class: Historical Med Leukotriene Modulators Disp Start End montelukast (SINGULAIR) 10 mg tablet Sig - Route: Take 10 mg by mouth Daily - Oral Class: Historical Med Patient's medications, allergies, past medical, surgical, social and family histories were obtained and reviewed as appropriate. Review of Systems Constitutional: Negative for chills and fever. HENT: Positive for postnasal drip. Negative for congestion. Eyes: Negative for discharge and itching. Respiratory: See HPI Cardiovascular: Negative for chest pain and leg swelling. Gastrointestinal: Negative for abdominal pain, constipation and diarrhea. Endocrine: Negative for cold intolerance and heat intolerance. Genitourinary: Negative for dysuria and frequency. Musculoskeletal: Negative for arthralgias and back pain. Skin: Negative for pallor and rash. Allergic/Immunologic: Negative for environmental allergies and food allergies. Neurological: Negative for dizziness and headaches. Psychiatric/Behavioral: Negative for agitation and behavioral problems. Objective: Vitals: 07/23/20 1145 BP: 138/82 Pulse: 180 Resp: 22 Temp: 36.4 C (97.6 F) Physical Exam Constitutional: General: She is not in acute distress. Appearance: Normal appearance. She is not toxic-appearing. HENT: Head: Normocephalic and atraumatic. Right Ear: External ear normal. Left Ear: External ear normal. Nose: Nose normal. No congestion. Eyes: Extraocular Movements: Extraocular movements intact. Conjunctiva/sclera: Conjunctivae normal. Pupils: Pupils are equal, round, and reactive to light. Neck: Musculoskeletal: Neck supple. No neck rigidity. Cardiovascular: Rate and Rhythm: Normal rate and regular rhythm. Heart sounds: Normal heart sounds. No murmur. No friction rub. No gallop. Pulmonary: Effort: Pulmonary effort is normal. No respiratory distress. Breath sounds: Normal breath sounds. No wheezing or rales. Abdominal: General: Abdomen is flat. Bowel sounds are normal. Palpations: Abdomen is soft. Musculoskeletal: Right lower leg: No edema. Left lower leg: No edema. Lymphadenopathy: Cervical: No cervical adenopathy. Skin: General: Skin is warm and dry. Neurological: General: No focal deficit present. Mental Status: She is alert and oriented to person, place, and time. Psychiatric: Mood and Affect: Mood normal. Behavior: Behavior normal. PFT 07/23/2020: Spirometry is consistent with normal physiology. Lung volume testing is consistent with nor mal physiology. Diffusion capacity is severely reduced and is not corrected for measured hem oglobin. Compared to prior pulmonary function test done 07/04/2013, the following changes hav e occurred: FVC improved by 19%, FEV1 improved by 28%. EXERCISE OXIMETRY: Attempted to perform 6-minute walk test. Patient walked approximately 1 00 feet while on 2 L pulsed oxygen. Patient complained of dizziness and feeling faint and d eclined to try additional walking. At rest on 2 L, O2 sat was 96%. With walking approximat naheed 100 feet, O2 decreased to 91% on 2 L with heart rate of 106. Test was terminated as pancho coley was unable to walk further due to dizziness and feeling faint. Assessment & Plan: 1. Chronic obstructive pulmonary disease, unspecified COPD type (HCC) 2. Primary pulmonary hypertension (HCC) 3. Chronic hypoxemic respiratory failure (HCC) MORGAN - Likely a combination of COPD, pulmonary HTN and deconditioning. Patient is limited with ambulation due to dizziness and lightheadedness when walking. She is mainly sedentary for this reason. COPD - Appears to be stable today. PFT results discussed today. There is been a significant improvement in FVC and FEV1 si nce prior pulmonary function testing done in 2012. Symptoms seem to be controlled with Symbicort 160/4.5 twice daily and albuterol PRN. Co ntinue current regimen. Pulmonary HTN (WHO group 1 and 3, functional class III) - Continue follow up with Dr. Rivera. Chronic hypoxic respiratory failure - Continue 2L O2 at rest, 4L O2 with ambulation, 5L O2 with Bipap. See AVS for patient instructions. Diagnosis and plan including medications and side effects were discussed with the patient a nd information handout was given. Patient voices understanding of the plan and all questions were answered. Return in about 1 year (around 07/23/2021). Electronically shereen d by Helen Astudillo MD at 07/24/2020 10:41 AM PDTdocumented in this encounter Plan of Treatment Not on filedocumented as of this encounter Visit Diagnoses + + | Diagnosis | + + | Chronic obstructive pulmonary disease, unspecified COPD type (HCC) - Primary | + + | Primary pulmonary hypertension (HCC) Primary pulmonary hypertension | + + | Chronic hypoxemic respiratory failure (HCC) Chronic respiratory failure | + + | Dyspnea on exertion Other dyspnea and respiratory abnormality | + + documented in this encounter
--- OUTSIDE RECORDS SUMMARY | ~2020-07-30 | XMS | Encounter Summary ---
Demographics + + + | Address | [address] | | | [place] [address] | + + + | Home Phone [...] + | [employer] | ECON | [id number] | | | | | Unknown | | + + + + + Care Team Providers + +------+ + | Care Assembler 1St Shift Name | Role | Phone | + [...] | | | | | | | [place] [facility] | | | | | | [...] + + + + | 05/22/ | Anesthesia | [facility] | Scout Lagunas, | | | 2019 | Event | MED CTR OR INTRA OP | MD [address] | | | | | [address] | [place] | | | | | [place] | [id number] | | | | | [address] | | | | | | [phone] | | | +--------+ + + + + Anesthesia Record + + + + + | Procedure Name | Responsible | Anesthesia Start | Anesthesia Stop Time | | | Anesthesiologist | Time | | + + + + + | RIGHT EXTRACTION | Scout Lagunas MD | 05/22/20 1442 | 05/22/20 1515 | | CATARACT W/ OR W/O | | | | | LENS IMPLANT (Right | | | | | Eye) | | | | + + + + + +----+---+ + + | Da | T | Event | Comment | | te | i | | | | | m | | | | | e | | | +----+---+ + + | 07 | 1 | | | | /2 | 3 | | | | 3/ | 5 | | | | 20 | 6 | | | | 20 | | | | +----+---+ + + | | 1 | An Checkout | Pre-use anesthesia machine/equipment checkout. | | | 4 | | | | | 3 | | | | | 9 | | | +----+---+ + + | | 1 | An Start | Reassessment prior to anesthesia induction/procedure. | | | 4 | | | | | 4 | | | | | 2 | | | +----+---+ + + | | 1 | Pre-Procedu | | | | 4 | ral Timeout | | | | 4 | Completed | | | | 3 | | | +----+---+ + + | | 1 | An | | | | 4 | Induction | | | | 4 | | | | | 8 | | | +----+---+ + + | | 1 | Quick Note | | | | 4 | | | | | 5 | | | | | 3 | | | +----+---+ + + | | 1 | Anesthesia | | | | 4 | Ready | | | | 5 | | | | | 3 | | | +----+---+ + + | | 1 | Breathing | | | | 4 | Spontaneous | | | | 5 | ly | | | | 3 | | | +----+---+ + + | | 1 | First | | | | 4 | Inc/Proc St | | | | 5 | | | | | 5 | | | +----+---+ + + | | 1 | an stop | | | | 5 | data | | | | 0 | | | | | 8 | | | +----+---+ + + | | 1 | An Stop | Patient handed off to recovery nurse. | | | 1 | | | | | 5 | | | +----+---+ + + +------+ [...] Removal | +--------+ + + + | Wound | 05/22/20; 1456; Incision; Right; | 05/22/20 1456 by | | | | eye | Marielena De Luna RN | | +--------+ + + + | Wound | 05/08/20; 940; Incision; Left; | 05/08/20 0941 by | 05/22/20 1521 by | | | eye; 05/22/20; 1521 | Diana Sandoval RN | Glory Campuzano RN | +--------+ + + + | Periph | 05/22/20; 1345; Right; Hand; | 05/22/20 1345 by | 05/22/20 1521 by | | ace | [id number] catheter system; | Martha Rosario, | Glory Campuzano RN | | IV | 20 gauge; 0; no longer indicated; | RN | | | | 05/22/20; 1521 | | | +--------+ + + + documented in [...] Postprocedure Evaluation - Scout Lagunas MD - 05/22/2020 3:20 PM PDTFormatti ng of this note might be different from the original. ANESTHESIA POSTANESTHESIA EVALUATION Margarita Rowley 54 y.o. female 1965 [id number] Procedure(s) RIGHT EXTRACTION CATARACT W/ OR W/O LENS IMPLANT (Right Eye) Cooperates? Yes Mental Status Performs simple tasks. Respiratory Satisfactory - Airway patent (self maintained). Cardiovascular Satisfactory - Blood pressure and heart rate acceptable Temperature Satisfactory Pain Satisfactory N/V Control Satisfactory Hydration Satisfactory - No signs of dehydration Adverse Events ADVERSE EVENTS: No adverse events Vitals Value Taken Time Temp 36.3 C (97.3 F) 05/22/20 1514 Pulse 70 05/22/20 1514 Resp 20 05/22/20 1514 BP 141/73 05/22/20 1514 Arterial Line BP Arterial Line BP 2 SpO2 96 % 05/22/20 1514 Electronically signed by Scout Lagunas MD 05/22/2020 3:20 PM PDT [facility] Scout Lagunas MD at 05/01 3:20 PM PDTAnesthesia Preprocedure Evaluation - Scout Lagunas MD - 05/22/2020 9: 25 AM PDT ANESTHESIA PREANESTHESIA EVALUATION Margarita Rowley 54 y.o. female 1965 [id number] Procedure(s): RIGHT EXTRACTION CATARACT W/ OR W/O LENS IMPLANT (Right Eye) Medical,anesthesia, drug, allergy histories reviewed, NPO status verified. Review of Systems / Med History Anesthesia History Emergently intubated in [place] 01/2020 -- videolaryngoscope used witho ut incident.. [...] wants the patie nt to respond to commands. 35mg w/ Contralateral procedure 05/08/2020. Electronically Signed by: Scout Lagunas MD ESig date/time: 05/22/2020 9:25 AM PDT documented in this en counter Miscellaneous Notes Anesthesia Post-op Handoff - Scout Lagunas MD - 05/22/2020 3:15 PM PDTFormatting of thi s note might be different from the original. ANESTHESIA HANDOFF NOTE Margarita Rowley 54 y.o. female 1965 [id number] RIGHT EXTRACTION CATARACT W/ OR W/O LENS IMPLANT (Right Eye) HANDOFF NOTE Handoff Protocol Used: post-procedure [...] of understanding of report from receiving team The significant anesthesia concerns and VS in Epic were reviewed with the receiving team. Scout Lagunas MD 05/22/2020 3:18 PM PDT [facility] Scout Lagunas MD at 05/01 3:19 PM PDTdocumented in this encounter Plan of Treatment Not on filedocumented as of this encounter Visit Diagnoses Not on filedocumented in this encounter Administered Medications + +--------+ +-------+------+------+ | Medication Order | MAR | Action | Dose | Rate | Site | | | Action | Date | | | | + +--------+ +-------+------+------+ | lidocaine (PF) 2% injection | Given | 05/22/20 | 10 mg | | | | Intravenous, PRN, Starting Galilea | | 20 2:58 | | | | | 05/22/20 at 1448, Anesthesia | | PM PDT | | | | | Intra-op | | | | | | + +--------+ +-------+------+------+ +-------+ +-------+---+---+ | Given | 05/22/20 | 10 mg | | | | | 20 2:52 | | | | | | PM PDT | | | | +-------+ +-------+---+---+ | Given | 05/22/20 | 15 mg | | | | | 20 2:48 | | | | | | PM PDT | | | | +-------+ +-------+---+---+ +---+---+ | | | +---+---+ + +-------+ +-------+---+---+ | propofol (DIPRIVAN) injection | Given | 05/22/20 | 10 mg | | | | Intravenous, PRN, Starting Galilea | | 20 2:58 | | | | | 05/22/20 at 1448, Anesthesia | | PM PDT | | | | | Intra-op | | | | | | + +-------+ +-------+---+---+ +-------+ +-------+---+---+ | Given | 05/22/20 | 10 mg | | | | | 20 2:52 | | | | | | PM PDT | | | | +-------+ +-------+---+---+ | Given | 05/22/20 | 15 mg | | | | | 20 2:48 | | | | | | PM PDT | | | | +-------+ +-------+---+---+ +---+---+ | | | +---+---+ documented in this encounter"
--- OUTSIDE RECORDS SUMMARY | ~2020-07-30 | XMS | Encounter Summary ---
Demographics + + + | Address | [address] | | | [place] [address] | + + + | Home Phone [...] + | [employer] | ECON | [id number] | | | | | Unknown | | + + + + + Care Team Providers + +------+ + | Care Commander Internal Affairs Name | Role | Phone | + +------+ + | Yuni Shrestha | PCP | | + +------+ + Encounter Details +--------+ + + + + | Date | Type | Department | Care Team | Description | +--------+ + + + + | 06/11/ | Abstract | [facility] [place] | [facility], | | | 2016 | | GASTROENTEROLOGY | BRITTANY Maddox [address] | | | | | [address] [place] | [address] | | | | | [address] [place], [place] | [place], [place] | | | | | [address] | [address] | | | | | [phone] | | | +--------+ + + + [...]
--- OUTSIDE RECORDS SUMMARY | ~2020-07-30 | XMS | Encounter Summary ---
Demographics + + + | Address | [address] | | | [place] [address] | + + + | Home Phone [...] + | [employer] | ECON | [id number] | | | | | Unknown | | + + + + + Care Team Providers + +------+ + | Care Oak Tanner Name | Role | Phone | + +------+ + | Yuni Shrestha | PCP | | + +------+ + Reason for Visit +---------+--------+ + | Reason | Onset | Comments | | | Date | | +---------+--------+ + | Results | 08/29/ | nocturnal oximetry | | | 2014 | | +---------+--------+ + Encounter Details +--------+ + + + + | Date | Type | Department | Care Team | Description | +--------+ + + + + | 08/29/ | Telephone | [facility] [place] | [place], | Results (nocturnal | | 2015 | | PULMONARY [address] | Vera Farrar MD | oximetry) | | | | [place], | | | | | | [place] [address] | | | | | | [phone] | | | +--------+ + + + [...] Telephone Encounter - Tarah Nino RN - 08/29/2015 11:15 AM PDTCalled Marry (caregi gricelda) and advised per Dr Lainez that Margarita's nocturnal pulse oximetry on O2 at 6 l/m thr ough the BIPAP looks fine. Okay per Marry. Orders sent to [facility].Electronically s igned by Tarah Nino RN at 08/29/2015 11:18 AM PDTdocumented in this encounter Plan of Treatment + + +--------+ + + | Name | Type | Priori | Associated Diagnoses | Order Schedule | | | | ty | | | + + +--------+ + + | Oxygen Therapy | Respiratory | Routin | Obstructive sleep | 1 Occurrences | | | Care | e | apnea | starting 08/29/2015 | | | | | | until 08/28/2016 | + + +--------+ + + documented as of this encounter Visit Diagnoses + + | Diagnosis | + + | Obstructive sleep apnea - Primary Obstructive sleep apnea (adult) (pediatric) | + + documented in this encounter"
--- OUTSIDE RECORDS SUMMARY | ~2020-07-30 | XMS | Encounter Summary ---
Demographics + + + | Address | [address] | | | [place] [address] | + + + | Home Phone | | + + + | Preferred Language | Unknown | + + + | Marital Status | Single | + + + | Mu-Ism Affiliation | [id number] | + + + [...] + | [employer] | ECON | [id number] | | | | | Unknown | | + + + + + Care Team Providers + +------+ + | Care [employer] Name | Role | Phone | + [...] | 2018 | | [address] | ORTHOTIC FINISH GRINDING TECHNICIAN [address] | | | | | [address] | [address] | | | | | [place], [place] | [place] [address] | | | | | [address] | [phone] | | | | | [phone] | | | +--------+ + + + [...] | | | 0.80 m/s MV Dec Caddo: 2.28 m/s2 MV DecT: 328.32 ms MV [...] TR Vmax: 3.20 m/s | | | International Marketing Specialist: JERRI Authenticated by: Vern Boston Report | [...] cmLVPWd: | | 0.71 cmLVOT Area: 2.68 lh7VTAD Diam: 1.84 cm%FS: 48.21 %EF(Teich): 79.87 | | %ESV(Teich): 16.84 mlLVIDs: 2.23 cmSV(Teich): 66.85 mlRVIDd: 2.99 cmLVEF MOD | | A4C: 62.52 %SV MOD A4C: 57.86 mlLVEDV MOD A4C: 92.54 mlLVLd A4C: 7.40 cmLVESV | | MOD A4C: 34.68 mlLVLs A4C: 6.14 cmLAESV(A-L): 40.81 mlLAESV Index (A-L): 23.05 | | ml/m2LAAs A2C: 16.03 bv3DRYQL A-L A2C: 43.10 mlLALs A2C: 5.06 cmLAAs A4C: 14.91 | | jm2ACVYM A-L A4C: 37.94 mlLALs A4C: 4.97 cmRAAs: 14.88 ml1GZDSZ A-L: 41.10 | | mlRAESV MOD: 39.25 mlRALs: 4.57 cmTAPSE: 2.21 cmAV maxP.90 mmHgAV meanPG: | | 6.42 mmHgAV Vmax: 1.72 m/Augustus Vmean: 1.18 m/Augustus VTI: 29.25 cmAVA Vmax: 2.30 | | cm2AVA (VTI): 2.65 od4RLKN (Vmax): 0.00 cm2/m2AVAI (VTI): 0.00 cm2/m2LVOT maxPG: | | 8.77 mmHgLVOT meanP.18 mmHgLVSI Dopp: 43.93 ml/m2LVSV Dopp: 77.77 mlLVOT | | Vmax: 1.48 m/sLVOT Vmean: 0.92 m/sLVOT VTI: 28.95 cmMV A Royal: 0.80 m/sMV Dec | | Caddo: 2.28 m/s2MV DecT: 328.32 msMV E Royal: 0.75 m/sMV E/A Ratio: 0.93MV PHT: | | 95.21 msMVA By PHT: 2.31 mv0Uqypfp e': 0.04 m/sSeptal E/e': 15.90Lateral e': | | 0.08 m/sLateral E/e': 8.87RAP: 5 mmHgRVSP: 46.05 mmHgTR maxP.05 mmHgTR | | Vmax: 3.20 m/s International Marketing Specialist: JERRIAuthenticated by: Vern Joseph Date/Time: | | [...] A Royal: 0.80 m/s | |MV Dec Cadd[place]: 2.28 m/s2 | |MV DecT: 328.32 ms [...] |TR Vmax: 3.20 m/s | | | |International Marketing Specialist: DBS | |Authenticated by: Vern Boston | [...]
--- OUTSIDE RECORDS SUMMARY | ~2020-07-30 | XMS | Encounter Summary ---
Demographics + + + | Address | [address] | | | [place] [address] | + + + | Home Phone [...] + | [employer] | ECON | [id number] | | | | | Unknown | | + + + + + Care Team Providers + +------+ + | Care Wireless Sales Expert Name | Role | Phone | + +------+ + | Gela Trimble NP | PCP | | + +------+ + Reason for Visit +--------+ + | Reason | Comments | +--------+ + | Other | pulmonary hypertension | +--------+ + Encounter Details +--------+---------+ + + + | Date | Type | Department | Care Team | Description | +--------+---------+ + + + | 08/06/ | Office | [facility] [place] | [place], | Pulmonary | | 2012 | Visit | PULMONARY [address] | Vera Farrar MD | hypertension (HCC) | | | | [place], | | (Primary Dx); | | | | [place] [address] | | Obstructive sleep | | | | [phone] | | apnea; COPD (chronic | | | | | | obstructive | | | | | | pulmonary disease) | | | | | | (HCC); Obesity | +--------+---------+ + + + Social History [...] + + + | Blood Pressure | 94/78 | 08/06/2013 11:04 AM | | | | | PDT | | + + + + + | Pulse | 68 | 08/06/2013 11:04 AM | | | | | PDT | | + + + + + | Temperature | 36.1 C (97 F) | 08/06/2013 11:04 AM | | | | | PDT | | + + + + + | Respiratory Rate | 20 | 08/06/2013 11:04 AM | | | | | PDT | | + + + + + | Oxygen Saturation | 94% | 08/06/2013 11:04 AM | 2 L oxygen | | | | PDT | | + + + + + | Inhaled Oxygen | - | - | | | Concentration | | | | + + + + + | Weight | 99 kg (218 lb 3.2 | 08/06/2013 11:04 AM | | | | oz) | PDT | | + + + + + | Height | 149.9 cm (4' 11") | 08/06/2013 11:04 AM | | | | | PDT | | + + + + + | Body Mass Index | 44.07 | 08/06/2013 11:04 AM | | | | | PDT | | + + + + + documented in this encounter Patient Instructions Patient Instructions Vera Lainez MD - 08/06/2013 11:[address] Rivera and discuss starting Adcirca 40mg once daily, we will work on insurance approval. Other alternat sofi is Revatio 20mg three times daily. I will get results of the PAP titration, and then try to get her a new machine if needed, p ending insurance approval. I wrote the orders for calling regarding oxygen saturation. documented in this encounter Progress Notes Vera Lainez MD - 08/06/2013 11:23 AM PDTFormatting of this note might be differe nt from the original. Pulmonary Follow Up MD Elo Bernardo [facility] [address] [place], [address] HPI Keo Rowley is a 47 y.o. female patient of Gela Otoole here today for follow up of pulmonary hypertension. She has had her mask fitting done with [employer]. She reports she loves her new mask. She then h ad her repeat sleep done on the new mask. She does not remember much about the study, except falling asleep. She has the new mask at home. She slept really well during the study. I do not yet have the results of the titration study, which was a BiPAP titration. She did get an appointment with Dr. Rivera in [place], which is next week. Initially appar ently there was a question of denial. They are wondering if we should change the call parameters to our office. She has not noticed any swelling. They noticed swelling one day, but they have worked to re strict her sodium and fluid intake. She notes chest pain at times, sometimes when walking and sometimes when sitting. Currently they are able to walk 20-30 feet at their own pace on level ground. They are exercising reg ularly. She is doing feet and leg lifts. She has started physical therapy. She is using oxygen 4L with exertion and 2L at rest. She is using her CPAP at night. Past Medical History Past Medical History Diagnosis Date COPD (chronic obstructive pulmonary disease) moderate, FEV1 1.40 (59%) Pulmonary hypertension severe, class 1?, class 2?, class 3 Bipolar disorder PTSD (post-traumatic stress disorder) Osteoarthritis Obstructive sleep apnea AHI 64.2 Vitamin d deficiency GERD (gastroesophageal reflux disease) Hypothyroidism Seizure disorder Developmental delay Hypoxemia on 2L of oxygen Female stress incontinence Pyelonephritis Hypertension Impulse control disorder Hyperlipidemia Obesity Alcohol abuse Cocaine abuse Past Surgical History Past Surgical History Procedure Date Mouth surgery 2 teeth removed Cardiac catherization Social History: History Social History Marital Status: Single Spouse Name: N/A Number of Children: N/A Years of Education: N/A Occupational History Disabled. [employer] Social History Main Topics Smoking status: Former Smoker -- 1.0 packs/day for 20 years Types: Cigarettes Quit date: 05/14/2013 Smokeless tobacco: None Alcohol Use: Yes history of abuse Drug Use: Yes Special: Cocaine history of cocaine use Sexually Active: None Other Topics Concern None Social History Narrative Lives at [employer]. Allergies: Allergies Allergen Reactions Erythromycin Metronidazole Penicillins Sulfa Antibiotics Medications: Outpatient Encounter Prescriptions as of 08/06/2013 Medication Status Sig Dispense Refill acetaminophen (MAPAP) 325 mg tablet Active Take 650 mg by mouth every 4 hours as needed . albuterol (VENTOLIN HFA) 90 mcg/puff inhaler Active Inhale 2 puffs into the lungs every 6 hours as needed. ascorbic acid (VITAMIN C) 500 mg tablet Active Take 500 mg by mouth Daily. buPROPion (WELLBUTRIN) 100 mg tablet Active Take 100 mg by mouth 2 times daily. cetirizine (ZYRTEC) 10 mg tablet Active Take 10 mg by mouth Daily. cholecalciferol (VITAMIN D-3) 2000 UNITS TABS Active Take 2,000 Units by mouth Daily. [place] Starch POWD Active by Does not apply route 4 times daily. divalproex (DEPAKOTE) 500 mg EC tablet Active Take 500 mg by mouth 3 times daily. docusate sodium (COLACE) 50 MG capsule Active Take 50 mg by mouth 2 times daily. Elastic Bandages & Supports (MEDICAL COMPRESSION STOCKINGS) MISC Active by Does not curt ly route. estradiol (ESTRACE) 1 mg tablet Active Take 2 mg by mouth Daily. ferrous sulfate 325 mg tablet Active Take 325 mg by mouth daily (with breakfast). furosemide (LASIX) 80 mg tablet Active Take 80 mg by mouth 2 times daily. gabapentin (NEURONTIN) 300 mg capsule Active Take 600 mg by mouth 3 times daily. HYDROcodone-acetaminophen (NORCO) 5-325 mg per tablet Active Take 1 tablet by mouth janna ry 6 hours as needed. levothyroxine (SYNTHROID, LEVOTHROID) 137 MCG tablet Active Take 137 mcg by mouth 2 bhargav es daily. Magnesium Hydroxide (MILK OF MAGNESIA PO) Active Take 30 mLs by mouth as needed. medroxyPROGESTERone (PROVERA) 5 MG tablet Active Take 5 mg by mouth Daily. meloxicam (MOBIC) 15 mg tablet Active Take 15 mg by mouth Daily. miconazole (MICONAZOLE 7) 2% vaginal cream Active Place 1 applicator vaginally 2 times daily. nicotine (NICODERM) 7 mg/[address] 1 patch onto the skin every 24 hours. [place]-3 Fatty Acids (SEA-OMEGA 30) 1200 MG CAPS Active Take by mouth. omeprazole (PRILOSEC) 20 mg capsule Active Take 20 mg by mouth every morning (before br eakfast). ondansetron (ZOFRAN ODT) 4 mg disintegrating tablet Active Take 4 mg by mouth every 8 h ours as needed. oxygen Active Inhale 2 L into the lungs continuous. 4 l when ambulating PARoxetine (PAXIL) 20 mg tablet Active Take 20 mg by mouth every morning. potassium chloride (K-DUR) 20 mEq tablet Active Take 20 mEq by mouth 2 times daily. risperiDONE (RISPERDAL) 4 MG tablet Active Take 4 mg by mouth Daily. simvastatin (ZOCOR) 20 mg tablet Active Take 20 mg by mouth nightly. Objective BP 94/78 | Pulse 68 | Temp 36.1 C (97 F) (Temporal) | Resp 20 | Ht 1.499 m (4' 11") | W t 98.975 kg (218 lb 3.2 oz) | BMI 44.07 kg/m2 | SpO2 94%2L General Appearance: Alert, falls asleep easily, in a wheelchair, on oxygen, accompanied by her caregivers Head: Normocephalic, without obvious abnormality, atraumatic Eyes: PERRL, conjunctiva clear, no scleral icterus, EOM's intact Ears: Normal TM's, external auditory canals, normal acuity Nose: Nares normal, septum midline, mucosa normal Mouth: No oral lesions or exudate Neck: Supple, symmetrical, no adenopathy Lungs: No accessory muscle use, breath sounds are somewhat diminished bilaterally with so me prolongation of the expiratory phase, no wheezes, crackles or rhonchi Chest Wall: No deformity Heart: Regular rate and rhythm, no murmur, rub or gallop Abdomen: Soft, non-tender, non-distended, obese Extremities: No cyanosis, clubbing, wearing compression hose, has woody bilateral edema Pulses: Radial pulses 2+ and symmetric Skin: Warm and dry Lymph nodes: Cervical and supraclavicular nodes normal Data: Results for KEO ROWLEY ( ) as of 08/07/2013 19:05 Ref. Range 07/04/2013 16:21 RHEUMATOID FACTOR Latest Range: <20 IU/mL <20 ALL-1 autoantibody IgG Latest Range: <1.0 AI <0.2 ALBERENE STONE SETTER Autoantibody Latest Range: <1.0 AI 0.4 ROWLEY Autoantibody Latest Range: <1.0 AI 0.2 SMRNP Autoantibody Latest Range: <1.0 AI <0.2 SS-A Autoantibody Latest Range: <1.0 AI <0.2 SS-B Autoantibody Latest Range: <1.0 AI <0.2 dsDNA Autoantibody Latest Range: <5 IU/mL 2 Ambulating oximetry was done on July 04, 2013 and was reviewed and interpreted in clini c today. It shows she required 4 L to keep her saturation more than 89 %. Assessment 1. Pulmonary hypertension - Class 1, and class 3. Unclear how much of a role heart disease plays, but Dr. Doll feels not much. I am going to start Adcirca today, though we will have to apply for approval. She will see Dr. Rivera in the meantime, and get her opinion on katelyn tment. 2. Obstructive sleep apnea - Had a mask fitting, and a repeat titration. I have not yet see n those results. Pending those, we may need to order a new BiPAP (ASV?) or not. Her last elbert nload showed terrible control, but her leak was also very high. She loves her new mask, but is still fatigued wearing it with her current machine. 3. COPD (chronic obstructive pulmonary disease) - On albuterol as needed. Her PFTs are inco nsistent, so unclear how much this is a part of her problem. Her spirometry is normal after bronchodilator. I would look at adding an inhaled steroid, and will look at adding this. 4. Obesity - Weight loss would definitely help. Her lack of activity has caused significant gain. Plan 1.I am ordering Adcirca and will try to get approval. 2.Continue fluid restriction, diuretics. Dr. Doll felt she was euvolemic, I am not certai n I agree. 3.I will look at adding an inhaled steroid, I need to see which her insurance will cover. 4.She will see Dr. Rivera. 5.Get results of her sleep study. Her caregivers were advised to call if new pulmonary symptoms were to develop. Return to clinic in 3 weeks, or sooner with concerns. CC: Gela Guerrero C, BRANCH OPERATIONS COORDINATOR, Lashae Rivera MD Portions of this report were transcribed using voice recognition software. Every effort wa s made to ensure accuracy; however, inadvertent computerized distribution tech errors may be pre sent. documented in t his encounter Plan of Treatment Not on filedocumented as of this encounter Visit Diagnoses + + | Diagnosis | + + | Pulmonary hypertension (HCC) - Primary Other chronic pulmonary heart diseases | + + | Obstructive sleep apnea Obstructive sleep apnea (adult) (pediatric) | + + | COPD (chronic obstructive pulmonary disease) (HCC) Chronic airway obstruction, not | | elsewhere classified | + + | Obesity Obesity, unspecified | + + documented in this encounter
--- OUTSIDE RECORDS SUMMARY | ~2020-07-30 | XMS | Encounter Summary ---
Demographics + + + | Address | [address] | | | [place] [address] | + + + | Home Phone [...] Author + + + | Author | [facility] | | | and [place] | + + + | Organization | [facility] | | | and [place] | + + + | Address | Unknown | + + + | Phone | Unavailable | + + + Support + + + + + | Name | Relationship | Address | Phone | + + + + + | [employer] | ECON | [phone] | | | | | Unknown | | + + + + + Care Team Providers + +------+ + | Care Master Baker Name | Role | Phone | + [...] | | | | | | | [facility] | | | | | | [...] + + | 05/22/ | Hospital | [facility] | Angel Garcia | | | 2019 | Encounter | MED CTR OR INTRA OP | MD [address] | | | | | [address] | [place] | | | | | [place] | [place] [address] | | | | | [address] | [phone] | | | | | [phone] | | | +--------+ + + + [...] symptoms, immediately call your eye doctor or [facility] at (dial "9" after hours [...] + + +---------+ + + | NYSTATIN [id number] | as needed | | 0 | [...] Angel Garcia MD, 05/22/2020 2:10 PM PDT [facility] documented in t his encounter Miscellaneous Notes Op Note - Angel Garcia MD - 05/22/2020 3:12 PM PDTPre-op Diagnosis: 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), right eye Post-op Diagnosis: same Procedure: Cataract extraction by phacoemulsification with intraocular lens implant, right eye (11109) Implant: J&J PCB00 23.0 D, SN [id number] Surgeon: Angel Garcia MD Anesthesia: Monitored Anesthesia [...] ONCE PRN, Wheezing, | | | Starting [facility] 05/22/20 at 1521, | | | [...] ONCE PRN, | | | Wheezing, Starting [facility] 05/22/20 at | | | 1324, [...] PRN, Nausea, Vomiting, | | | Starting [facility] 05/22/20 at 1521, | | | [...] | | | | | Incision, Starting [facility] 05/22/20 at | | | | [...]
--- OUTSIDE RECORDS SUMMARY | ~2020-07-30 | XMS | Encounter Summary ---
Demographics + + + | Address | [address] | | | [place] [address] | + + + | Home Phone [...] Author + + + | Author | [facility] | | | and [place] | + + + | Organization | [facility] | | | and [place] | + + + | Address | Unknown | + + + | Phone | Unavailable | + + + Support + + + + + | Name | Relationship | Address | Phone | + + + + + | [employer] | ECON | [phone] | | | | | Unknown | | + + + + + Care Team Providers + +------+ + | Care Suppression Crew Leader Name | Role | Phone | + [...] | Primary | [place], | [address] | | | | | pulmonary | Vera B, | [place], | | | | | hypertension | MD [address] | [place] | | | | | ([facility]) | [address] | [address] | | | | | Procedures | [place], | Phone: | | | | | ECHO | [place] [address] | [phone] | | | | | Complete [place] | | Fax: | | | | | ECHO HEART | | [phone] | | | | | [employer]ORAC[employer],[place] | | | | | | | [address] | | | | | | | DOPPLER [place] | | | | | | | [...] + + | 06/12/ | Office | [facility] | [place], | Primary pulmonary | | 2015 | Visit | PULMONARY [address] | Vera Farrar MD | hypertension (HCC); | | | | [place], | | [place] (obstructive | | | | [place] [address] | | sleep apnea); COPD | | | | [phone] | | (chronic obstructive | | | [...] 1200 feet regularly. Please take her to [facility] monthly for urine tests. Get the printed lab slip fr om here today to take to them. Have heart ultrasound here in July. documented in this encounter Progress Notes Vrea Lainez MD - 06/12/2015 10:43 AM PDTFormatting [...] with walking, except out to the back [facility] where she has be en smoking, about [...] COPD (chronic obstructive pulmonary disease) ([facility]) moderate, FEV1 1.40 (59%) Pulmonary hypertension ([facility]) severe, class 1, class 2, class 3 Bipolar disorder ([facility]) PTSD (post-traumatic stress disorder) Osteoarthritis [...] Years of Education: N/A Occupational History Disabled. [employer] Social History Main Topics Smoking status: Current [...] Concern None Social History Narrative Lives at [employer]. Allergies: Allergies Allergen Reactions Erythromycin Metronidazole Penicillins [...] TABS Take 2,000 Units by mouth Daily. [place] Starch POWD by Does not apply route [...] mg onto the skin every 24 hours. [place]-3 Fatty Acids (SEA-OMEGA 30) 1200 MG CAPS [...] her caregivers to take her to [facility] in [place] monthly to have this done. HCG, Urine, [...] and lab slip given to take to [facility]. She was advised to call if new pulmonary symptoms were to develop. Return to clinic in July, or sooner with concerns. CC: VIKAS Galicia, Lashae Rivera MD Portions of this report were transcribed using voice recognition software. Every effort wa s made to ensure accuracy; however, inadvertent computerized applications trainer errors may be pre sent. documented in [...]
--- OUTSIDE RECORDS SUMMARY | ~2020-07-30 | XMS | Encounter Summary ---
Demographics + + + | Address | [address] | | | [place] [address] | + + + | Home Phone | | + + + | Preferred Language | Unknown | + + + | Marital Status | Single | + + + | Faith Affiliation | [phone] | + + + | Race | White | + + + | Ethnic Group | Not or | + + + Author + + + | Author | [facility] | | | and [place] | + + + | Organization | [facility] | | | and [place] | + + + | Address | Unknown | + + + | Phone | Unavailable | + + + Support + + + + + | Name | Relationship | Address | Phone | + + + + + | [employer] | ECON | [phone] | | | | | Unknown | | + + + + + Care Team Providers + +------+ + | Care Electrical Installer Name | Role | Phone | [...] Farrar MD | | | | | [place], | | | | | | [place] [address] | | | | | | [phone] | | | +--------+ + + + [...] that Margarita's neurologist is Dr.Fei Fajardo in [place], [place]. She has an appointment with him next month either the or .Electronical ly signed by Amanda Ellis at 03/12/2014 1:52 PM PDTdocumented in this encounter Plan of Treatment Not on filedocumented as of this encounter Visit Diagnoses Not on filedocumented in this encounter"
--- OUTSIDE RECORDS SUMMARY | ~2020-07-30 | XMS | Encounter Summary ---
Demographics + + + | Address | [address] | | | [place] [address] | + + + | Home Phone [...] + | [employer] | ECON | [phone] | | | | | Unknown | | + + + + + Care Team Providers + +------+ + | Care Bolt Header Name | Role | Phone | + [...] Description | +--------+---------+ + + + | 09/17/ | Office | [facility] | [place], | Primary pulmonary | | 2012 | Visit | PULMONARY [address] | Vera Farrar MD | hypertension (HCC) | | | | [place], | | (Primary Dx); | | | | [place] [address] | | Obstructive sleep | | | | [phone] | | apnea; Hypoxemia; | | | | | | COPD (chronic | | | | | | obstructive | | | | | | pulmonary disease) | | | | | | (HCC); Flushing; | | | | | | Chronic right-sided | | | | | | heart failure ([facility]); | | | | | | Borderline abnormal | | | | | | TFTs | +--------+---------+ + + + Social History [...] + + + | Blood Pressure | 122/68 | 09/17/2013 11:05 AM | | | | | PST | | + + + + + | Pulse | 70 | 09/17/2013 11:05 AM | | | | | PST | | + + + + + | Temperature | - | - | | + + + + + | Respiratory Rate | - | - | | + + + + + | Oxygen Saturation | 91% | 09/17/2013 11:05 AM | On 2L | | | | PST | | + + + + + | Inhaled Oxygen | - | - | | | Concentration | | | | + + + + + | Weight | 102.2 kg (225 lb 3.2 | 09/17/2013 11:05 AM | | | | oz) | PST | | + + + + + | Height | 149.9 cm (4' 11") | 09/17/2013 11:05 AM | | | | | PST | | + + + + + | Body Mass Index | 45.48 | 09/17/2013 11:05 AM | | | | | PST | | + + + + + documented in this encounter Patient Instructions Patient Instructions Vera Lainez MD - 09/17/2013 11:49 AM PSTHave blood test tocarlin leblanc Have appointment for mask fitting to decrease leak and work on this. Walk test with next appointmentElectronically signed by Vera Lainez MD at 013 11:50 AM PST documented in this encounter Progress Notes Vera Lainez MD - 09/17/2013 11:23 AM PSTFormatting of this note might be differe nt from the original. Pulmonary Follow Up MD [facility] [address] [place], [address] HPI Margarita Rowley is a 48 y.o. female patient of Gela Trimble here today for follow up of pulmonary hypertension. At their last visit, we had checked labs. We stopped the the Adcirca about 1 1/2 weeks ago and started the Letairis about 1/[address] Rivera's prescription. Since their last visit she feels like she has been less somnolent. She does nap after work. They do think that it correlates with the medication change. They noticed a tremor starting about a week ago. It is occuring at rest. It is not particul kimi bothersome to her. She continues to have facial flushing, and was diagnosed as having r osacea. She had labs done last or Tuesday. Her breathing has been going "okay." She is getting up and walking. Currently she is able t o walk 215 feet at her own pace on level ground. She is exercising regularly. She is doing p hysical therapy. They have not noticed any significant change in her walking distance up or down. They are having her walk 100 feet minimum every day. She has had some mild bloody noses. She is using the oxygen at 2L at rest and 4L with exertion. Her saturations have been good, low to mid nineties. The swelling has been up and down. They are swelling today. In general, it is about the palma e. Her weight is down 4 pounds in the last month, and 6 pounds in 2 months. She remains up 6 pounds since her discharge. Past Medical History Past Medical History Diagnosis Date COPD (chronic obstructive pulmonary disease) moderate, FEV1 1.40 (59%) Pulmonary hypertension severe, class 1?, class 2?, class 3 Bipolar disorder PTSD (post-traumatic stress disorder) Osteoarthritis Obstructive sleep apnea AHI 64.2 Vitamin d deficiency GERD (gastroesophageal reflux disease) Hypothyroidism Seizure disorder Developmental delay Hypoxemia on 2L at rest, 4L with exertion Female stress incontinence Pyelonephritis Hypertension Impulse control disorder Hyperlipidemia Obesity Alcohol abuse Cocaine abuse Past Surgical History Past Surgical History Procedure Date Mouth surgery 2 teeth removed Cardiac catherization Social History: History Social History Marital Status: Single Spouse Name: N/A Number of Children: N/A Years of Education: N/A Occupational History Disabled. [employer] Social History Main Topics Smoking status: Former Smoker -- 1.0 packs/day for 20 years Types: Cigarettes Quit date: 05/14/2013 Smokeless tobacco: None Alcohol Use: Yes Comment: history of abuse Drug Use: Yes Special: Cocaine Comment: history of cocaine use Sexually Active: None Other Topics Concern None Social History Narrative Lives at [facility]. Allergies: Allergies Allergen Reactions Erythromycin Metronidazole Penicillins Sulfa Antibiotics Medications: Outpatient Encounter Prescriptions as of 09/17/2013 Medication Sig Dispense Refill acetaminophen (MAPAP) 325 [...] TABS Take 2,000 Units by mouth Daily. Bendena Starch POWD by Does not apply route 4 times daily. divalproex (DEPAKOTE) 500 mg EC tablet Take 500 mg by mouth 3 times [...] daily. HYDROcodone-acetaminophen (NORCO) 5-325 mg per tablet Take 1 tablet by mouth every 6 ho urs as needed. levothyroxine (SYNTHROID, LEVOTHROID) 137 MCG tablet Take 137 mcg by mouth 2 times celia y. Magnesium Hydroxide (MILK OF MAGNESIA PO) Take 30 mLs by mouth as needed. meloxicam (MOBIC) 15 mg tablet Take 15 mg by mouth Daily. nitrofurantoin (MACROBID) 100 mg capsule Take 100 mg by mouth 2 times daily. Temperance-3 Fatty Acids (SEA-OMEGA 30) 1200 MG CAPS [...] mouth Daily. Review of Systems Constitutional: Denies fevers. Weight slowly declining. Gets cold easily. Sleep: Using BiPAP, less somnolent. Eyes: Denies vision change and eye irritation. Right eye occasionally gets blood shot. ENT: Denies earache, decreased hearing, nasal congestion, sore throat, and hoarseness. Occ asional nosebleeds. Resp: See HPI. CV: Denies chest pain, palpitations, syncope. Swelling overall stable. GI: Denies heartburn, nausea, vomiting, and abdominal pain. : Denies difficulty emptying bladder. Having nocturia. Objective BP 122/68 | Pulse 70 | Ht 1.499 m (4' 11") | Wt 102.15 kg (225 lb 3.2 oz) | BMI 45.48 kg/m2 | SpO2 91%2L General Appearance: Alert, cooperative, no distress, appears stated age, more alert and in teractive Head: Normocephalic, without obvious abnormality, atraumatic Eyes: PERRL, conjunctiva clear, no scleral icterus, EOM's intact Ears: Normal TM's, external auditory canals, normal acuity Nose: Nares normal, septum midline, mucosa normal Mouth: No oral lesions or exudate Neck: Supple, symmetrical, no adenopathy Lungs: No accessory muscle use, breath sounds are diminsihed bilaterally with some prolon gation of the expiratory phase, no wheezes, crackles or rhonchi Chest Wall: No deformity Heart: Regular rate and rhythm, no murmur, rub or gallop Abdomen: Soft, non-tender, non-distended, obese Extremities: No cyanosis, clubbing, wearing HUMZA hose, has 2+ woody edema seen Pulses: Radial pulses 2+ and symmetric Skin: Warm and dry Lymph nodes: Cervical and supraclavicular nodes normal Data: BiPAP Data: Dates: 08/15/13-09/13/13 Machine type: Respironics BiPAP auto Home Health Company: [facility] Pressure: 18/14 cmH2O AHI: 13.2 events/hour Total number of days: 30 Number of days used: 30 Median daily usage: 7:29 hours Percent of days used for more than 4 hours: 100 % Percent of night in large leak: 58.8% Labs: Labs 09/11/13 Chemistries and LFTs normal except creatinine 1.02 TSH 8.02 CBC normal, except high MCV Immunization History Administered Date(s) Administered INFLUENZA, PRESERVATIVE FREE IM 07/31/2013 Assessment 1. Primary pulmonary hypertension - Seems improved as she can walk more. Will do 6MW test w ith next visit. On Letairis only. Less somnolent. 2. Obstructive sleep apnea - Continued high leak. We will have mask fit appointment to work on with caregivers. Excellent compliance, and when leak is controlled, AHI appears controll ed on graphical data. 3. Hypoxemia - Stable on 2L at rest and 4L with exertion. 4. COPD (chronic obstructive pulmonary disease) - On Qvar and albuterol. Fairly minimal dis ease. 5. Flushing - Likely medication side effect. I check both the Letairis and Adcirca and it i s caused by both. 6. Chronic right-sided heart failure - Check BNP today to make sure euvolemic. On furosemid e 80mg twice daily. Plan 1.Continue Letairis. 2.Continue oxygen and BiPAP. 3.Check BNP today to ensure euvolemic. 4. Mask fitting for BiPAP. 5. Continue furosemide current dose. 6. 6MW test next visit. She was advised to call if new pulmonary symptoms were to develop. Return to clinic in 1 month, or sooner with concerns. CC: JAVIER Haley MD Portions of this report were transcribed using voice recognition software. Every effort wa s made to ensure accuracy; however, inadvertent computerized head of music errors may be pre sent. documented in t his encounter Plan of Treatment + + +--------+ + + | Name | Type | Priori | Associated Diagnoses | Order Schedule | | | | ty | | | + + +--------+ + + | Pulmonary Fx Tests | Respiratory | [facility] | Primary pulmonary | 1 Occurrences | | (Hospital Performed) | Care | | hypertension (HCC) | starting 09/17/2013 | | | | | | until 09/17/2014 | + + +--------+ + + documented as of this encounter Results B Type Natriuretic Peptide [...] | performed on the Kathryn | | [facility] | | | | [facility] [facility] | | MEDICAL | | | [...] + | [facility] | [address] | [place], [place] | [phone] | | [facility] | | [address] | | | - LABORATORY | | | | + + + + + | [facility] | [address] | [place], [place] | | | [facility] | | [address], [facility] | | | - LABORATORY | | | | + + + + + documented in this encounter Visit Diagnoses + + | Diagnosis | + + | Primary pulmonary hypertension (HCC) - Primary Primary pulmonary hypertension | + + | Obstructive sleep apnea Obstructive sleep apnea (adult) (pediatric) | + + | Hypoxemia | + + | COPD (chronic obstructive pulmonary disease) (HCC) Chronic airway obstruction, not | | elsewhere classified | + + | Flushing | + + | Chronic right-sided heart failure (HCC) Congestive heart failure, unspecified | + + | Borderline abnormal TFTs Nonspecific abnormal results of thyroid function study | + + documented in this encounter
--- OUTSIDE RECORDS SUMMARY | ~2020-07-30 | XMS | Encounter Summary ---
Demographics + + + | Address | [address] | | | [place] [address] | + + + | Home Phone | | + + + | Preferred Language | Unknown | + + + | Marital Status | Single | + + + | Christian Affiliation | 1009 | + + + | Race | White | + + + | Ethnic Group | Not or | + + + Author + + + | Author | [facility] | | | and [place] | + + + | Organization | [facility] | | | and [place] | + + + | Address | Unknown | + + + | Phone | Unavailable | + + + Support + + + + + | Name | Relationship | Address | Phone | + + + + + | [employer] | ECON | [phone] | | | | | Unknown | | + + + + + Care Team Providers + +------+ + | Care Tank Truck Driver Name | Role | Phone | [...] | Jacky Calderon | | | | Outpatient Surgery Rn / | Obstructive | Shanice Paez, | D, PA [address] | | | | Sleep | sleep apnea | [address] | [place] | | | | Medicine | (adult) | ROSELIA MATTHEWS | [place], | | | | | (pediatric) | [place], | [place] [address] | | | | | 2 mo cpap | [place] | Phone: | | | | | follow up, | [address] | [phone] | | | | | bring | Phone: | Fax: | | | | | equip/AO- | [phone] | [phone] | | | | | new machine | Fax: | | | | | | Procedures | [phone] | | | | | | 05/30 [...] + + | 04/16/ | [facility] | [facility] | Jacky Calderon PA | Primary central | | 2019 | Visit | SLEEP DISORDER [address] | [address] | sleep apnea (Primary | | | | [address] [place] | [place], [place] | Dx) | | | | [place] [address] | [address] | | | | | [phone] | | | +--------+---------+ + + + [...] visit: 06/14/2018 date of polysomnography: 03/13/2013 at [facility] AHI: 64.2 O2%: n/a Machine type: [...] Assessment: Problem #1: PRIMARY CENTRAL SLEEP APNEA ([id number]) This is controlled with BiPAP and oxygen [...]
--- OUTSIDE RECORDS SUMMARY | ~2020-07-30 | XMS | Encounter Summary ---
Demographics + + + | Address | [address] | | | [place] [address] | + + + | Home Phone [...] + | [employer] | ECON | [phone] | | | | | Unknown | | + + + + + Care Team Providers + +------+ + | Care Top Ironer Name | Role | Phone | + +------+ + | Yuni Shrestha | PCP | | + +------+ + Reason for Visit + +--------+ + | Reason | Onset | Comments | | | Date | | + +--------+ + | Referral | 06/30/ | | | | 2015 | | + +--------+ + Encounter Details +--------+ + + + + | Date | Type | Department | Care Team | Description | +--------+ + + + + | 06/30/ | Telephone | [facility] [place] | [facility], | Referral | | 2015 | | GASTROENTEROLOGY | BRITTANY Maddox [address] | | | | | [address] [place] | [address] | | | | | [address] [place], [place] | [place], [place] | | | | | [address] | [address] | | | | | [phone] | | | +--------+ + + + [...] Telephone Encounter - Katheryn Garber RN - 07/06/2016 11:45 AM PDTSpoke with Martha davila [facility] who is one of patient's caretakers at [phone]. Explained that PCP will need to ref er patient to [facility] pulmonology to see if it is safe to proceed with egd/colon, since Dr. Angel Luis lam is not taking over care of Dr. Lainez's patients. Martha verbalized understandin g, and will contact PCP for referral to [facility]. Asked that MD she is referred to let Monica grimes if patient is safe to proceed with GI procedure. Asked PSR to fix phone numbers, since cell number listed is one of [facility] [employer] [employer] cell number; replace with [phone]. Electronically signed by Katheryn Garber RN at 0 07/06/2016 11:54 AM PDTTelephone Encounter - Katheryn Garber RN - 06/30/2016 3:32 PM Harry cabrera RN returned call and said Dr. Arthur is not willing to comment on Dr. Lainez's pa tients; he is also not taking care over of any her patients. He advised Monica use her best ju dgement based on Dr. Lainez's last office note from January, or referring patient to Pulmo nology at [facility] for evaluation. elephone Encounter - Katheryn Garber RN - 06/30/2016 2:01 PM PDTCalled pulmona logy and LM with KIM ElkinsR for Dr. Arthur regarding whether patient is safe to proceed with egd/colon due to COPD and continuous supplemental O2. She will relay message to Dr. Loco davenport, and will have a RN call us back. Electronically signed by Katheryn Garber RN at 06/30 2:05 PM PDTdocumented in this encounter Plan of Treatment Not on filedocumented as of this encounter Visit Diagnoses Not on filedocumented in this encounter"
--- OUTSIDE RECORDS SUMMARY | ~2020-07-30 | XMS | Encounter Summary ---
Demographics + + + | Address | [address] | | | [place] [address] | + + + | Home Phone [...] + + | Author | [facility] | | | and [place] | + + + | Organization | [facility] | | | and [place] | + + + | Address | Unknown | + + + | Phone | Unavailable | + + + Support + + + + + | Name | Relationship | Address | Phone | + + + + + | [employer] | ECON | [phone] | | | | | Unknown | | + + + + + Care Team Providers + +------+ + | Care Glass Sander Belt Name | Role | Phone | + +------+ + PCP | Unavailable | + +------+ + Encounter Details +--------+ + + + + | Date | Type | Department | Care Team | Description | +--------+ + + + + | 03/06/ | Hospital | [facility] | Juliana Angeles | | | 2011 | Encounter | HOSPITAL XRAY [address] | | | | | [place] | [place] | | | | | [place], [place] | [place] | | | | | [address] | [address] | | | | | [phone] | [phone] | | | | | | | [...]
--- OUTSIDE RECORDS SUMMARY | ~2020-07-30 | XMS | Encounter Summary ---
Demographics + + + | Address | [address] | | | [place] [address] | + + + | Home Phone [...] | Organization | [facility] | | | and [place] | + + + | Address | Unknown | + + + | Phone | Unavailable | + + + Support + + + + + | Name | Relationship | Address | Phone | + + + + + | [employer] | ECON | [phone] | | | | | Unknown | | + + + + + Care Team Providers + +------+ + | Care Associate Professor Of Communication Name | Role | Phone | + [...] | [place], | Medication Refill | | 2016 | | GASTROENTEROLOGY | BRITTANY Maddox [address] | | | | | [address] [place] | [address] | | | | | [address] [place], [place] | [place], [place] | | | | | [address] | [address] | | | | | [phone] | | | +--------+--------+ + + + [...]
--- OUTSIDE RECORDS SUMMARY | ~2020-07-30 | XMS | Encounter Summary ---
Demographics + + + | Address | [address] | | | [place] [address] | + + + | Home Phone [...] Author + + + | Author | [facility] | | | and [place] | + + + | Organization | [facility] | | | and [place] | + + + | Address | Unknown | + + + | Phone | Unavailable | + + + Support + + + + + | Name | Relationship | Address | Phone | + + + + + | [employer] | ECON | [phone] | | | | | Unknown | | + + + + + Care Team Providers + +------+ + | Care Brand Ambassador Promotional Model Name | Role | Phone | + +------+ + | Yuni Shrestha | PCP | | + +------+ + Encounter Details +--------+ + + + + | Date | Type | Department | Care Team | Description | +--------+ + + + + | 08/14/ | Orders Only | [facility] [place] | Tarah Nino, | Obstructive sleep | | 2015 | | PULMONARY [address] | RN | apnea; Hypoxemia | | | | [place], | | | | | | [place] [address] | | | | | | [phone] | | | +--------+ + + + [...]
--- OUTSIDE RECORDS SUMMARY | ~2020-07-30 | XMS | Encounter Summary ---
Demographics + + + | Address | [address] | | | [place] [address] | + + + | Home Phone [...] Organization | [facility] | | | and [place] | + + + | Address | Unknown | + + + | Phone | Unavailable | + + + Support + + + + + | Name | Relationship | Address | Phone | + + + + + | [employer] | ECON | [phone] | | | | | Unknown | | + + + + + Care Team Providers + +------+ + | Care Machine Setter Automatic Name | Role | Phone | + [...] | | | | | [address] [place] [place] | [address] [place] | | | | | [place], [place] | [place], [place] | | | | | [address] | [address] | | | | | [phone] | [phone] | | | | | | | [...]
--- OUTSIDE RECORDS SUMMARY | ~2020-07-30 | XMS | Encounter Summary ---
Demographics + + + | Address | [address] | | | [place] [address] | + + + | Home Phone [...] + | [employer] | ECON | [phone] | | | | | Unknown | | + + + + + Care Team Providers + +------+ + | Care Auditing Manager Name | Role | Phone | [...] | | | | | pharyngeal | [facility] | [facility] [address] | | | | | phase | [address] | [address] | | | | | Procedures | [place], | [address] | | | | | Office Visit | [place] [address] | [place], | | | | | | Phone: | [place] [address] | | | | | | [phone] | Phone: | | | | | | Fax: | [phone] | | | | | | [phone] | Fax: | | | | | | | [phone] | +--------+--------+ + + + + Encounter [...] esophagitis presence | | | | [address] [place], [place] | [place], [place] | not specified | | | | [address] | [address] | (Primary Dx); | | | | [phone] | | Esophageal | | | | [...] Date COPD (chronic obstructive pulmonary disease) ([facility]) moderate, FEV1 1.40 (59%) Pulmonary hypertension (HCC) [...] Years of Education: N/A Occupational History Disabled. [employer] Social History Main Topics Smoking status: Former Smoker -- 1.00 packs/day for 20 years Types: Cigarettes Quit date: 12/15/2015 Smokeless tobacco: Never Used Alcohol Use: No Drug Use: No Sexual Activity: Not on file Other Topics Concern Not on file Social History Narrative Lives at [facility]. Review of systems: Constitutional:Denies any fevers, chills, [...]
--- OUTSIDE RECORDS SUMMARY | ~2020-07-30 | XMS | Encounter Summary ---
Demographics + + + | Address | [address] | | | [place] [address] | + + + | Home Phone [...] + + + | Author | [facility] | | | and [place] | + + + | Organization | [facility] | | | and [place] | + + + | Address | Unknown | + + + | Phone | Unavailable | + + + Support + + + + + | Name | Relationship | Address | Phone | + + + + + | [employer] | ECON | [phone] | | | | | Unknown | | + + + + + Care Team Providers + +------+ + | Care Director Of Billing Name | Role | Phone | + +------+ + | Yuni Shrestha | PCP | | + +------+ + Reason for Visit + +--------+ + | Reason | Onset | Comments | | | Date | | + +--------+ + | Medication Refill | 12/22/ | | | | 2016 | | + +--------+ + Encounter Details +--------+--------+ + + + | Date | Type | Department | Care Team | Description | +--------+--------+ + + + | 12/22/ | Refill | [facility] [place] | [facility], | Medication Refill | | 2015 | | PULMONARY [address] | Vera Farrar MD | | | | | [place], | | | | | | [place] [address] | | | | | | [phone] | | | +--------+--------+ + + + [...]
--- OUTSIDE RECORDS SUMMARY | ~2020-07-30 | XMS | Encounter Summary ---
Demographics + + + | Address | [address] | | | [place] [address] | + + + | Home Phone | | + + + | Preferred Language | Unknown | + + + | Marital Status | Single | + + + | Jehovah'S Witness Affiliation | 1009 | + + + [...] + | [employer] | ECON | [id number] | | | | | Unknown | | + + + + + Care Team Providers + +------+ + | Care Composition Molder Name | Role | Phone | + [...] + + | 06/14/ | Office | [facility] | Jacky Calderon PA | Primary central | | 2018 | Visit | SLEEP DISORDER [address] | [address] | sleep apnea (Primary | | | | [address] [place] | [place] | Dx) | | | | [place] [address] | [address] | | | | | [phone] | | | +--------+---------+ + + + [...] PM PDT1. Go to [facility] to get: -Respironics AmaraView full face mask [...] visit: 07/26/2017 date of polysomnography: 03/13/2013 at [facility] AHI: 64.2 O2%: n/a Machine type: Respironics BiPAP Auto Mask type: ResMed Quattro FX full face mask DME: [facility] in [place] pressure: 16/5 cm with backup rate of [...] full face mask. She may consider using [facility], if [facility] in [place] does not get her the correct mask. [...] Assessment: Problem #1: PRIMARY CENTRAL SLEEP APNEA ([id number]-H35.31) This is controlled with BiPAP and oxygen [...]
--- OUTSIDE RECORDS SUMMARY | ~2020-07-30 | XMS | Encounter Summary ---
Demographics + + + | Address | [address] | | | [place] [address] | + + + | Home Phone | | + + + | Preferred Language | Unknown | + + + | Marital Status | Single | + + + | Tenriism Affiliation | 1009 | + + + [...] + | [employer] | ECON | [id number] | | | | | Unknown | | + + + + + Care Team Providers + +------+ + | Care Inspection Clerk Name | Role | Phone | [...] Unknown | | | | | [address] [place] | | | | | | [address] | (Fax) | | | | | [phone] | | | +--------+ + + + [...]
--- OUTSIDE RECORDS SUMMARY | ~2020-07-30 | XMS | Encounter Summary ---
Demographics + + + | Address | [address] | | | [place] [address] | + + + | Home Phone [...] | Organization | [facility] | | | and [place] | + + + | Address | Unknown | + + + | Phone | Unavailable | + + + Support + + + + + | Name | Relationship | Address | Phone | + + + + + | [employer] | ECON | [phone] | | | | | Unknown | | + + + + + Care Team Providers + +------+ + | Care Judicial Reporter Name | Role | Phone | + [...] MD | hypertension | | | | [place], | | (Primary Dx); COPD | | | | [place] [address] | | (chronic obstructive | | | | [phone] | | pulmonary disease); | | | [...] appointment to see cardiology, with records from [facility], wh ich I will also get. We will let [...] seeing a neurologist for the tremors in [facility] next week. Her breathing has been [...] she could walk farther than this, but e is afraid to do this. Her order specifies 150 feet, so this as far as she goes. She has ho me exercises, but not physical therapy. At night she is on BiPAP plus 5L bled in, and this is going well. She notes she was tired y esterday. Her AHI is down to 10.9 on [...] Diagnosis Date COPD (chronic obstructive pulmonary disease) ([facility]) moderate, FEV1 1.40 (59%) Pulmonary hypertension ([facility]) severe, class 1, class 2, class 3 Bipolar disorder ([facility]) PTSD (post-traumatic stress disorder) Osteoarthritis Obstructive sleep apnea AHI 64.2 Vitamin D deficiency GERD (gastroesophageal reflux disease) Hypothyroidism Seizure disorder (HCC) Developmental delay Hypoxemia ([facility]) on 2L at rest, 4L with exertion Female stress incontinence Pyelonephritis Hypertension Impulse control disorder Hyperlipidemia Obesity Alcohol abuse Cocaine abuse Atrial fibrillation ([facility]) Past Surgical History Past Surgical History Procedure Date Mouth surgery 2 teeth removed Cardiac catherization Social History: History Social History Marital Status: Single Spouse Name: N/A Number of Children: N/A Years of Education: N/A Occupational History Disabled. [employer] Social History Main Topics Smoking status: Former Smoker -- 1.0 packs/day for 20 years Types: Cigarettes Quit date: 05/14/2013 Smokeless tobacco: None Alcohol Use: Yes Comment: history of abuse Drug Use: Yes Special: Cocaine Comment: history of cocaine use Sexually Active: None Other Topics Concern None Social History Narrative Lives at [employer]. Allergies: Allergies Allergen Reactions Erythromycin Metronidazole Penicillins [...] TABS Take 2,000 Units by mouth Daily. [place] Starch POWD by Does not apply route [...] tablet Take 15 mg by mouth Daily. [place]-3 Fatty Acids (SEA-OMEGA 30) 1200 MG CAPS [...] mouth 2 times daily. Respiratory Therapy Supplies [facility] BIPAP ST rate 8 cm H2O. IPAP 19/EPAP 5. O2 bleed in a t 2 l/m. Lifetime. Dx: 327.23 1 each 0 Respiratory Therapy Supplies [facility] Please contact Dr. Lainez's office if oxygen [...] then reassess in 30 minutes. If t diogenes can, they should decrease back to 2-4L as indicated. If she requires 6L still, then they either need to contact the provider or seek care depending on circumstances. Obviously if i t is an emergency, and they cannot get [...] Paroxysmal atrial fibrillation- Per caregiver seen at [facility] visit. We will ge t records [...] Letairis. 5. We will get records from [facility] visit, but I did suggest cardiology [...] made to ensure accuracy; however, inadvertent computerized wheat buyer errors may be pre sent. Electronically signed [...]
--- OUTSIDE RECORDS SUMMARY | ~2020-07-30 | XMS | Encounter Summary ---
Demographics + + + | Address | [address] | | | [place] [address] | + + + | Home Phone [...] + + | Organization | [facility] | | | and [place] | + + + | Address | Unknown | + + + | Phone | Unavailable | + + + Support + + + + + | Name | Relationship | Address | Phone | + + + + + | [employer] | ECON | [phone] | | | | | Unknown | | + + + + + Care Team Providers + +------+ + | Care Ocean Import Representative Name | Role | Phone | [...] | Telephone | [facility] [place] | [facility], | Referral | | 2015 | | GASTROENTEROLOGY | BRITTANY Maddox [address] | | | | | [address] | [address] | | | | | [address] [place], [place] | [place], [place] | | | | | [address] | [address] | | | | | [phone] | | | +--------+ + + + [...] 07/06/2016 11:45 AM PDTSpoke with Martha davila [facility] who is one of patient's caretakers at [phone]. Explained that PCP will need to ref er patient to [facility] pulmonology to see if it is safe to proceed with egd/colon, since Dr. Angel Luis lam is not taking over care of Dr. Lainez's patients. Martha verbalized understandin g, and will contact PCP for referral to [facility]. Asked that MD she is referred to let Monica grimes if patient is safe to proceed with GI procedure. Asked PSR to fix phone numbers, since cell number listed is one of [employer]'s [employer] cell number; replace with [phone]. Electronically signed by Katheryn Garber RN at [...] or referring patient to Pulmo nology at [facility] for evaluation. elephone Encounter - Katheryn Garber [...]
--- OUTSIDE RECORDS SUMMARY | ~2020-07-30 | XMS | Encounter Summary ---
Demographics + + + | Address | [address] | | | [place] [address] | + + + | Home Phone [...] + | [employer] | ECON | [id number] | | | | | Unknown | | + + + + + Care Team Providers + +------+ + | Care Sample Wrapper Name | Role | Phone | [...] | | | | | | [place] [address] | | | | | | [phone] | | | +--------+ + + + [...]
--- OUTSIDE RECORDS SUMMARY | ~2020-07-30 | XMS | Encounter Summary ---
Demographics + + + | Address | [address] | | | [place] [address] | + + + | Home Phone [...] + | [employer] | ECON | [phone] | | | | | Unknown | | + + + + + Care Team Providers + +------+ + | Care Pot Firer Name | Role | Phone | + [...] | Primary | Offenstein, | [address] | | | | | pulmonary | Vera B, | [place], | | | | | hypertension | MD [address] | [place] | | | | | ([facility]) | [address] | [address] | | | | | Procedures | ELO ELLIS, | Phone: | | | | | ECHO | [place] [address] | [phone] | | | | | Complete | | Fax: | | | | | APPT | | [phone] | | | | | 03/18/14. | [...] | 12/17/ | Office | [facility] [place] | Fatou, | Primary pulmonary | | 2014 | Visit | PULMONARY [address] | Vera Farrar MD | hypertension | | | | [place], | | (Primary Dx); [place] | | | | [place] [address] | | (obstructive sleep | | | | [phone] | | apnea); COPD | | | [...] MD Elo Bernardo Pulmonary and Critical Care [facility] [address] [place], [address] HPI Margarita Rowley is a 48 y.o. [...] Years of Education: N/A Occupational History Disabled. [employer] Social History Main Topics Smoking status: Former Smoker -- 1.0 packs/day for 20 years Types: Cigarettes Quit date: 05/14/2013 Smokeless tobacco: None Alcohol Use: Yes Comment: history of abuse Drug Use: Yes Special: Cocaine Comment: history of cocaine use Sexually Active: None Other Topics Concern None Social History Narrative Lives at [email or web address]. Allergies: Allergies Allergen Reactions Erythromycin Metronidazole Penicillins [...] TABS Take 2,000 Units by mouth Daily. [place] Starch POWD by Does not apply route [...] mg by mouth 2 times da jammie. [place]-3 Fatty Acids (SEA-OMEGA 30) 1200 MG CAPS [...] sounds are diminished bilaterally, no wheezes, aircraft engine installer ckles or rhonchi Chest Wall: No deformity [...] fit, issues with adjusting machine with the Ge.tt and with her AHI remaining high despite [...] made to ensure accuracy; however, inadvertent computerized soubrette errors may be pre sent. documented in t his encounter Plan of Treatment Not on filedocumented as of this encounter Results ECHO Complete (03/12/2014 8:36 AM PDT) + + | Specimen | + + | | + + + + + | Narrative | Performed At | + + + | [facility] REPORT | [facility] | | STUDY DATE: 03/12/2014 PATIENT NAME: Margarita Rowley : | [facility] | | 1965 PCP: Gela Trimble [facility] | | HISTORY/DIAGNOSIS: PULM HTN A [...] PhD FACC 03/12/2014 8:38 | | | Network Systems Integrator: Hung Caro, TIRSO, RVT, RDMS | | + + + + + | Procedure Note | + + | Roberto Salguero MD - 03/12/2014 6:05 PM [facility] | | CENTERECHOCARDIOGRAM REPORTSTUDY DATE: 03/12/2014PATIENT NAME: Margarita MooreB: | | 1965MRN: [id number]: Gela DayINICAL HISTORY/DIAGNOSIS: PULM HTNA | | [...] | mmHgLA volume: 34 mLLA index: 18 mL/d5Vpkrmq Inflow DT: 290 msIVRT: 117 msValsalva: | | YES, TO NO EFFECTPWDTI S wave: 12.0 cm/sPWDTI E wave: 15.5 cm/sPWDTI A wave: 24.1 | | cm/sE/A Ratio: 0.643E/E Ratio: Signed by: Artie Salguero MD PhD FACC 03/12/2014 | | 8:38 Network Systems Integrator: Hung Caro, RDCS, RVT, RDMS | |Mitral [...] 03/12/2014 8:38 | | | | | |Network Systems Integrator: Hung Caro, JUANITOCS, RVT, RDMS | + + + + + + + | Performing | Address | City/State/Zipcode | Phone Number | | Organization | | | | + + + + + | [address] | [address] | [place], [place] | [phone] | | [facility] | | [address] | | | - IMAGING | | [...]
--- OUTSIDE RECORDS SUMMARY | ~2020-07-30 | XMS | Clinical Summary ---
Demographics + + + | Address | [address] | | | [place] [address] | + + + | Home Phone [...] Team Providers + +------+ + | Care Mitering Machine Operator Name | Role | Phone | + +------+ + | Yuni Shrestha | PCP | | + +------+ + Source Comments SARAH is fully live on both EpicCare Ambulatory and EpicCare InPatient.[facility] Allergies + + + + + + [...] e | + + + +---------+------+------+-------+ | [place]-3 Fatty | Take 1 Cap by mouth [...] | + +--------+ +--------+ + +--------+ | [employer] MEDICAID | F[employer]WORK[employer]BS | [id number] | Effect | | | Medica | | | EASTER | | sofi | | | id | | | N [place] | | for | | | | | | | | all | | | | | | | | dates | | | | + +--------+ +--------+ + +--------+ | MEDICAID [place] | OHP | [id number] | 04/07/20 | [phone] | [address] | Medica | | | PLUS | | 12-Pre | 6 | [address] | id | | | OPEN | | sent | | [place], [place] | | | | CARD | | | | [address] | | + +--------+ +--------+ + +--------+ [...] | 1965 | [phone] | [place] [address] | | | jammie | | | 0 (Home) | | + +--------+ +--------+ + + | Margarita Rowley May | Person | Self | [birth year] | | [address] | | | al/Fam | | 1965 | [phone] | [place] [address] | | | jammie | | | [...]
--- OUTSIDE RECORDS SUMMARY | ~2020-07-30 | XMS | Encounter Summary ---
Demographics + + + | Address | [address] | | | [place] [address] | + + + | Home Phone [...] + | [employer] | ECON | [phone] | | | | | Unknown | | + + + + + Care Team Providers + +------+ + | Care Electrical Controls Technician Name | Role | Phone | + +------+ + | Shanice Huang MD | PCP | | + +------+ + Encounter Details +--------+ + + + + | Date | Type | Department | Care Team | Description | +--------+ + + + + | 05/10/ | Orders Only | [facility] | [place], | | | 2016 | | CONVERSION [address] | Vera Farrar MD | | | | | [place] [address] | | | | | | [place] | | | | | | [address] | | | | | | [phone] | | | +--------+ + + + [...] + | ECHO INTERPRETATION | Routin | 03/09/2016 | | Results for this | | OF OUTSIDE FILMS | e | 1:33 PM | | procedure are in the | | | | PDT | | results section. | + +--------+ + + + documented in this encounter Results ECHO Interpretation of Outside Films (03/09/2016 1:33 PM PDT) + + | Specimen | + + | | + + + + + | Impressions | Performed At | + + + | 1. Sinus rhythm. TDS. 2. Cardiac chamber dimensions grossly NML. | | | LV systolic and diastolic functions NML, [place] visually estimates | | | LVEF 60-65%. RV grossly NML. 3. Valves grossly NML. No /AI. | | | Mild MR, mild TR, trace PI. 4. No Pericardial effusion. 5. IVC | | | plethoric, est systolic PAP 36-41mmHg, borderline. | | + + + + + + | Narrative | Performed At | + + + | Patient Name: Margarita Rowley Date of : 1965 | | | Performing Physician: Avila Haynes DO | | | | | | INDICATIONS Pulmonary HTN CONCLUSIONS | | | 1. Sinus rhythm. TDS. 2. Cardiac chamber dimensions grossly NML. | | | LV systolic and diastolic functions NML, [place] visually estimates | | | LVEF 60-65%. RV grossly NML. 3. Valves grossly NML. No /AI. | | | Mild MR, mild TR, trace PI. 4. No Pericardial effusion. 5. IVC | | | plethoric, est systolic PAP 36-41mmHg, borderline. FINDINGS | | | -------- ECG rhythm: Sinus rhythm. Study: This was a technically | | | difficult study with suboptimal views. Left Ventricle: Overall left | | | ventricular systolic function is normal with, an EF between 60 - 65 %. | | | Left Ventricle: The left ventricle cavity size is normal. Left | | | Ventricle: Left ventricular wall thickness is normal. Left Ventricle: | | | The diastolic filling pattern is normal for the age of the patient. | | | Right Ventricle: The right ventricle is normal in size and function. | | | Left Atrium: The left atrium is normal in size. Right Atrium: The | | | right atrium is normal in size. Aortic Valve: The aortic valve is | | | trileaflet, and appears anatomically normal. No aortic stenosis or | | | regurgitation. Mitral Valve: The mitral valve is normal. Mitral | | | Valve: Mild mitral regurgitation is present. Tricuspid Valve: The | | | tricuspid valve appears structurally normal. Tricuspid Valve: Mild | | | tricuspid regurgitation present. Pulmonic Valve: Pulmonic valve | | | appears structurally normal. Pulmonic Valve: Trace pulmonic | | | regurgitation. Pericardium: There is no pericardial effusion. | | | IVC/Hepatic Veins: The IVC is normal size (1.5-2.5cm) and collapses | | | <50% with sniff, consistent with central venous pressures of | | | 10-15mmHg. MEASUREMENTS Tobacco Sampler: | | | Authenticated by: Avila Haynes DO Report Date/Time: -- | | | [id number]:44 | | + + + + + | Procedure Note | + + | Gabrile Zafar Conversion - 06/22/2019 10:54 AM PDT Patient Name: Julia Rowley of | | : 1965 Performing Physician: Avila Haynes | | DO INDICATIONS P | | ulmonary HTN CONCLUSIONS 1. Sinus rhythm. TDS. 2. Cardiac chamber dimensions | | grossly NML. LV systolic and diastolic functions NML, [place] visually estimates LVEF | | 60-65%. RV grossly NML. 3. Valves grossly NML. No /AI. Mild MR, mild TR, trace PI. | | 4. No Pericardial effusion. 5. IVC plethoric, est systolic PAP 36-41mmHg, borderline. | | FINDINGS--------ECG rhythm: Sinus rhythm.Study: This was a technically difficult study | | with suboptimal views.Left Ventricle: Overall left ventricular systolic function is | | normal with, an EF between 60 - 65 %.Left Ventricle: The left ventricle cavity size is | | normal.Left Ventricle: Left ventricular wall thickness is normal.Left Ventricle: The | | diastolic filling pattern is normal for the age of the patient.Right Ventricle: The | | right ventricle is normal in size and function.Left Atrium: The left atrium is normal in | | size.Right Atrium: The right atrium is normal in size.Aortic Valve: The aortic valve is | | trileaflet, and appears anatomically normal. No aortic stenosis or regurgitation.Mitral | | Valve: The mitral valve is normal.Mitral Valve: Mild mitral regurgitation is | | present.Tricuspid Valve: The tricuspid valve appears structurally normal.Tricuspid | | Valve: Mild tricuspid regurgitation present.Pulmonic Valve: Pulmonic valve appears | | structurally normal.Pulmonic Valve: Trace pulmonic regurgitation.Pericardium: There is | | no pericardial effusion.IVC/Hepatic Veins: The IVC is normal size (1.5-2.5cm) and | | collapses <50% with sniff, consistent with central venous pressures of 10-15mmHg. | | MEASUREMENTS Tobacco Sampler: DHAuthenticated by: Avila Moses | | Date/Time: -- [id number] IMPRESSION: 1. Sinus rhythm. TDS. 2. Cardiac | | chamber dimensions grossly NML. LV systolic and diastolic functions NML, [place] | | visually estimates LVEF 60-65%. RV grossly NML. 3. Valves grossly NML. No /AI. Mild | | MR, mild TR, trace PI. 4. No Pericardial effusion. 5. IVC plethoric, est systolic PAP | | 36-41mmHg, borderline. | |Left Atrium: The left atrium is normal in size. | |Right Atrium: The right atrium is normal in size. | |Aortic Valve: The aortic valve is trileaflet, and appears anatomically normal. No aortic st enosis or regurgitation. | |Mitral Valve: The mitral valve is normal. | |Mitral Valve: Mild mitral regurgitation is present. | |Tricuspid Valve: The tricuspid valve appears structurally normal. | |Tricuspid Valve: Mild tricuspid regurgitation present. | |Pulmonic Valve: Pulmonic valve appears structurally normal. | |Pulmonic Valve: Trace pulmonic regurgitation. | |Pericardium: There is no pericardial effusion. | |IVC/Hepatic Veins: The IVC is normal size (1.5-2.5cm) and collapses <50% with sniff, consis tent with central venous pressures of 10-15mmHg. | | | |MEASUREMENTS | | | | | |Tobacco Sampler: | |Authenticated by: Avlia Haynes DO | |Report Date/Time: -- [id number] | | | |IMPRESSION: | |1. Sinus rhythm. TDS. 2. Cardiac chamber dimensions grossly NML. LV systolic and diastoli c functions NML, [place] visually estimates LVEF 60-65%. RV grossly NML. 3. Valves grossly N ML. No /AI. Mild MR, mild | |TR, trace PI. 4. No Pericardial effusion. | | 5. IVC plethoric, est systolic PAP 36-41mmHg, borderline. | + + documented in this encounter Visit Diagnoses Not on filedocumented in this encounter"
--- OUTSIDE RECORDS SUMMARY | ~2020-07-30 | XMS | Encounter Summary ---
Demographics + + + | Address | [address] | | | [place] [address] | + + + | Home Phone [...] + | [employer] | ECON | [id number] | | | | | Unknown | | + + + + + Care Team Providers + +------+ + | Care Vice President Supply Chain Name | Role | Phone | + [...] MD | oximetry) | | | | [place], | | | | | | [place] [address] | | | | | | [phone] | | | +--------+ + + + [...] PSTCalled and talked with Kamala at the [employer]. Advised per Dr Lainez thatBeatrisrossy does not need O2 at r est but needs 4 l/m with exertion. Order sent to [facility]. documented in this encounter Plan of Treatment + [...] + | COPD (chronic obstructive pulmonary disease) ([facility]) - Primary Chronic airway | | obstruction, not elsewhere classified | + + documented in this encounter"
--- OUTSIDE RECORDS SUMMARY | ~2020-07-30 | XMS | Encounter Summary ---
Demographics + + + | Address | [address] | | | [place] [address] | + + + | Home Phone | | + + + | Preferred Language | Unknown | + + + | Marital Status | Single | + + + | Rastafarian Affiliation | [id number] | + + + [...] + | [employer] | ECON | [phone] | | | | | Unknown | | + + + + + Care Team Providers + +------+ + | Care Creative Services Producer Name | Role | Phone | [...] | | | | | | [place] [address] | | | | | | [phone] | | | +--------+ + + + [...] Telephone Encounter - Tarah Nino RN - 08/14/2015 9:18 AM Kristen's caregiver rinku post stating that the order for the overnight oximetry was not sent to [facility]. Order ed and sent. Kelsea villasenor in this encounter Plan of Treatment + [...]
--- OUTSIDE RECORDS SUMMARY | ~2020-07-30 | XMS | Encounter Summary ---
Demographics + + + | Address | [address] | | | [place] [address] | + + + | Home Phone [...] + | [employer] | ECON | [id number] | | | | | Unknown | | + + + + + Care Team Providers + +------+ + | Care Detonator Maker Name | Role | Phone | [...] | | | | | | [place] [address] | | | | | | [phone] | | | +--------+ + + + [...] [facility]. | [address] | [place], [place] | [phone] | | [facility] | | [id number] | | | - LABORATORY | | | | + + + + + documented in this encounter Visit Diagnoses Not on filedocumented in this encounter"
--- OUTSIDE RECORDS SUMMARY | ~2020-07-30 | XMS | Encounter Summary ---
Demographics + + + | Address | [address] | | | [place] [address] | + + + | Home Phone | | + + + | Preferred Language | Unknown | + + + | Marital Status | Single | + + + | Restoration Affiliation | NRP | + + + | Race | White | + + + | Ethnic Group | Not or | + + + Author + + + | Author | [facility] | + + + | Organization | [facility] | + + + | Address | Unknown | + + + | Phone | Unavailable | + + + Support + + +---------+ + | Name | Relationship | Address | Phone | + + +---------+ + | Lidia Thibodeaux | ECON | Unknown | | + + +---------+ + Care Team Providers + +------+ + | Care Dog Food Shredder Operator Name | Role | Phone | [...] | | [place], [place] | [address] | | | | | [address] | [phone] | | | | | [phone] | | | +--------+ + + + [...]
--- OUTSIDE RECORDS SUMMARY | ~2020-07-30 | XMS | Encounter Summary ---
Demographics + + + | Address | [address] | | | [place] [address] | + + + | Home Phone [...] | Organization | [facility] | | | and [place] | + + + | Address | Unknown | + + + | Phone | Unavailable | + + + Support + + + + + | Name | Relationship | Address | Phone | + + + + + | [employer] | ECON | [phone] | | | | | Unknown | | + + + + + Care Team Providers + +------+ + | Care Carpet Inspector Finished Name | Role | Phone | + [...] | | [address] | [facility] [place] | | | | | [place] | [address] | | | | | [address] | [phone] | | | | | [phone] | | | +--------+ + + + [...]
--- OUTSIDE RECORDS SUMMARY | ~2020-07-30 | XMS | Encounter Summary ---
Demographics + + + | Address | [address] | | | [place] [address] | + + + | Home Phone [...] Author + + + | Author | [facility] | | | and [place] | + + + | Organization | [facility] | | | and [place] | + + + | Address | Unknown | + + + | Phone | Unavailable | + + + Support + + + + + | Name | Relationship | Address | Phone | + + + + + | [employer] | ECON | [id number] | | | | | Unknown | | + + + + + Care Team Providers + +------+ + | Care Motor Vehicle Assembly Supervisor Name | Role | Phone | + +------+ + | Yuni Shrestha | PCP | | + +------+ + Reason for Visit + +--------+ + | Reason | Onset | Comments | | | Date | | + +--------+ + | Medical Clearance | 06/30/ | | | | 2016 | | + +--------+ + Encounter Details +--------+ + + + + | Date | Type | Department | Care Team | Description | +--------+ + + + + | 06/30/ | Telephone | [facility] [place] | [facility], | Medical Clearance | | 2015 | | PULMONARY [address] | Vera Farrar MD | | | | | [place], | | | | | | [place] [address] | | | | | | [phone] | | | +--------+ + + + [...] this encounter Miscellaneous Notes Telephone Encounter - Jia Noriega RN - 06/30/2016 3:10 PM PDTNotaziza Silverman that Dr Arthur cannot comment on a patient he has not seen himself. Dr Lainez is no longer her but her records are available in [employer] or we'd be happy [facility]. Andra will let us know if they need our assistance. elephone Encounter - Nickie Noriega RN - 06/30/2016 2:21 PM PDTKristi from GI left message with PSR requesting surgical clearance prior to upper endoscopy and colonoscopy. Attempted to call her back but call wou ld not go through at [phone]. documented in this encounter Plan of Treatment Not on filedocumented as of this encounter Visit Diagnoses Not on filedocumented in this encounter"
--- OUTSIDE RECORDS SUMMARY | ~2020-07-30 | XMS | Encounter Summary ---
Demographics + + + | Address | [address] | | | [place] [address] | + + + | Home Phone [...] Author + + + | Author | [facility] | | | and [place] | + + + | Organization | [facility] | | | and [place] | + + + | Address | Unknown | + + + | Phone | Unavailable | + + + Support + + + + + | Name | Relationship | Address | Phone | + + + + + | [employer] | ECON | [phone] | | | | | Unknown | | + + + + + Care Team Providers + +------+ + | Care Fabric Coating Supervisor Name | Role | Phone | [...] + + | 08/06/ | Office | [facility] [place] | [place], | Pulmonary | | 2012 | Visit | PULMONARY [address] | Vera Farrar MD | hypertension (HCC) | | | | [place], | | (Primary Dx); | | | | [place] [address] | | Obstructive sleep | | | | [phone] | | apnea; COPD (chronic | | [...] [facility]o [facility] [place] [facility] [address] [place], [address] HPI Keo Rowley is a 47 y.o. [...] get an appointment with Dr. Rivera in [place], which is next week. Initially appar ently [...] Years of Education: N/A Occupational History Disabled. [place] Social History Main Topics Smoking status: Former Smoker -- 1.0 packs/day for 20 years Types: Cigarettes Quit date: 05/14/2013 Smokeless tobacco: None Alcohol Use: Yes history of abuse Drug Use: Yes Special: Cocaine history of cocaine use Sexually Active: None Other Topics Concern None Social History Narrative [facility] [employer]. Allergies: Allergies Allergen Reactions Erythromycin Metronidazole Penicillins [...] Active Take 2,000 Units by mouth Daily. [place] Starch POWD Active by Does not apply [...] patch onto the skin every 24 hours. One[place]-3 Fatty Acids (SEA-OMEGA 30) 1200 MG CAPS [...] autoantibody IgG Latest Range: <1.0 AI <0.2 CHIEF METEOROLOGIST Autoantibody Latest Range: <1.0 AI 0.4 ROWLEY [...] sooner with concerns. CC: Gela Guerrero C, BLACK TOPPER, Lashae Rivera MD Portions of this report were transcribed using voice recognition software. Every effort wa s made to ensure accuracy; however, inadvertent computerized paedodontist errors may be pre sent. documented in [...]
--- OUTSIDE RECORDS SUMMARY | ~2020-07-30 | XMS | Encounter Summary ---
Demographics + + + | Address | [address] | | | [place] [address] | + + + | Home Phone [...] Organization | [facility] | | | and [place] | + + + | Address | Unknown | + + + | Phone | Unavailable | + + + Support + + + + + | Name | Relationship | Address | Phone | + + + + + | [employer] | ECON | [phone] | | | | | Unknown | | + + + + + Care Team Providers + +------+ + | Care Spinning Lathe Operator Automatic Name | Role | Phone | + +------+ + | Gela Trimble NP | PCP | | + +------+ + Reason for Visit +--------+ + | Reason | Comments | +--------+ + | Apnea | | +--------+ + Encounter Details +--------+---------+ + + + | Date | Type | Department | Care Team | Description | +--------+---------+ + + + | 01/23/ | Office | [facility] | Jacky Calderon PA | Primary central | | 2013 | Visit | SLEEP DISORDER [address] | [address] | sleep apnea (Primary | | | | [address] [place] | [place] | Dx) | | | | [place] [address] | [address] | | | | | [phone] | | | +--------+---------+ + + + [...] + | Blood Pressure | 92/58 | 01/23/2014 1:53 PM | | | | | PDT | | + +---------+ + + | Pulse | 76 | 01/23/2014 1:53 PM | | | | | PDT | | + +---------+ + + | Temperature | - | - | | + +---------+ + + | Respiratory Rate | 16 | 01/23/2014 1:53 PM | | | | | PDT | | + +---------+ + + | Oxygen Saturation | 93% | 01/23/2014 1:53 PM | | | | | PDT [...] encounter Progress Notes Jacky Calderon PA - 01/23/2014 2:04 PM PDT Subjective: Patient ID: Margarita Rowley is a 48 y.o. female. HPI last office visit was: 12/26/2013 date of polysomnography: 03/13/2013 at [facility] AHI: 64.2 O2%: n/a Machine type: Respironics BiPAP Auto with ResMed Quattro FX full face mask obtained from: [facility] pressure: 16/5 cm with backup rate of 8 bpm Nights using BiPAP: average usage (all nights): 7:44 average usage (nights used): 7:44 AHI: 10.9 Jessie comes in for follow up after an adjustment to her pressures on her BiPAP. She continu es to do well with her compliance, but has noticed a significant improvement in her sleep qu ality since changing her pressure to IPAP of 16 cm and EPAP of 5 cm with a backup rate of 8 and oxygen at 5 L/min bled into the circuitry. She is sleeping better and has more energy s aiyana the pressure adjustment. She does not have any questions or concerns. I have discussed the download in detail. This shows that her sleep apnea is controlled, wi th an AHI of 10.9 (65.5 at previous previous pressures). It also shows that her leaks are c ontrolled. Review of Systems Objective: Physical Exam Assessment: Problem #1: CENTRAL SLEEP APNEA (327.21) This is controlled with BiPAP at the adjusted pressures. Her compliance is going very well . Plan: She is to continue with BiPAP indefinitely. I will follow up with her in 3 months, sooner prn. Fifteen minutes were spent [id number] , with the majority of time spent in counseling. Jacky Calderon PA-C cc: BRUCE Beal MD documented in this enco unter Miscellaneous Notes Miscellaneous - ALBA LINDER - 01/23/2014 12:00 AM PDT documented in this encounter Plan of Treatment Not on filedocumented as of this encounter Visit Diagnoses + + | Diagnosis | + + | Primary central sleep apnea - Primary | + + documented in this encounter"
--- OUTSIDE RECORDS SUMMARY | ~2020-07-30 | XMS | Encounter Summary ---
Demographics + + + | Address | [address] | | | [place] [address] | + + + | Home Phone [...] + | [employer] | ECON | [phone] | | | | | Unknown | [...] | | | | | pulmonary | LINE DECORATOR [address] | [address] | | | | | hypertension | [address] | [place], [place] | | | | | ([facility]) | [place], | [address] | | | | | Procedures | [place] [address] | Phone: | | | | | F/U | Phone: | [phone] | | | | | | [phone] | Fax: | | | | | | Fax: | [phone] | | | | | | [phone] | | +--------+--------+ + + + + Encounter Details +--------+---------+ + + + | Date | Type | Department | Care Team | Description | +--------+---------+ + + + | 02/01/ | Office | [facility] | Scout Arthur, | Primary pulmonary | | 2017 | Visit | PULMONARY [address] | [address] | hypertension (HCC) | | | | [place], | [place] [address] | (Primary Dx); | | | | [place] [address] | [phone] | Chronic respiratory | | | | [phone] | | failure with hypoxia | | [...] on medication and oxygen and BiPAP at [facility] HPI: I am able to reconstruct this patient's history with the benefit of Dr. Elvi rivera's pulmonary clinic notes from [facility] in [facility] from May 17, 2016. Today, she [...] was apparently diagnosed August 08, 2013 in [place] at [facility] on 2 L with right atrial [...] chest x-ray. An echocardiogram from [facility] done March 09, 2016, a little b [...] be seeing her pulmonary hypertension specialist in [place] before then. The note from 2016 was very helpful. Over half the session was spent in counseling. 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
--- OUTSIDE RECORDS SUMMARY | ~2020-07-30 | XMS | Encounter Summary ---
Demographics + + + | Address | [address] | | | [place] [address] | + + + | Home Phone [...] + | [employer] | ECON | [id number] | | | | | Unknown | | + + + + + Care Team Providers + +------+ + | Care Back Closer Name | Role | Phone | + [...] [address] | [facility] | | | | | [address] [place], [place] | [place] [address] | | | | | [address] | [phone] | | | | | [phone] | | | +--------+ + + + [...]
--- OUTSIDE RECORDS SUMMARY | ~2020-07-30 | XMS | Encounter Summary ---
Demographics + + + | Address | [address] | | | [place] [address] | + + + | Home Phone [...] + | [employer] | ECON | [phone] | | | | | Unknown | | + + + + + Care Team Providers + +------+ + | Care Voice Instructor Name | Role | Phone | [...] [address] | | | | | [address] | [place] [address] | | | | | [place] | [phone] | | | | | [address] | | | | | | [phone] | Shady Mcdonald | | | | | | MD [address] | | | | | | [place], [place] | | | | | | [address] | | | | | | [phone] | | | | | | | [...]
--- OUTSIDE RECORDS SUMMARY | ~2020-07-30 | XMS | Encounter Summary ---
Demographics + + + | Address | [address] | | | [place] [address] | + + + | Home Phone [...] | Organization | [facility] | | | and [place] | + + + | Address | Unknown | + + + | Phone | Unavailable | + + + Support + + + + + | Name | Relationship | Address | Phone | + + + + + | [employer] | ECON | [id number] | | | | | Unknown | | + + + + + Care Team Providers + +------+ + | Care Furniture Repair Technician Name | Role | Phone | [...] | | | Hypoxemia | [place] | [address] Phone: | | | | | Procedures | [address] | [phone] | | | | | F/U APPT | Phone: | Fax: | | | | | [facility] | [phone] | [phone] | | | | | 01/29/2020 | Fax: | | | | | | | [phone] | | + +--------+ + + + + Encounter Details +--------+---------+ + + + | Date | Type | Department | Care Team | Description | +--------+---------+ + + + | 07/23/ | Office | [facility] | Helen Astudillo | Chronic obstructive | | 2020 | Visit | PULMONARY [address] | MD Vikash [address] | pulmonary disease, | | | | [place], | [address] [place] | unspecified COPD | | | | [place] [id number] | [place] [address] | type (HCC) (Primary | | | | [phone] | [phone] | Dx); Primary | | | | [...] is followed by Dr. Lashae Rivera, at [facility] in [place], [place] for pulmona ry HTN. - In [...]
--- OUTSIDE RECORDS SUMMARY | ~2020-07-30 | XMS | Encounter Summary ---
Demographics + + + | Address | [address] | | | [place] [address] | + + + | Home Phone [...] + | [employer] | ECON | [phone] | | | | | Unknown | | + + + + + Care Team Providers + +------+ + | Care Buffing Wheel Inspector Name | Role | Phone | + +------+ + | Gela Trimble NP | PCP | | + +------+ + Reason for Referral Evaluate & Treat (Routine) +--------+ + + + + + | Status | Reason | Specialty | Diagnoses / | Referred By | Referred To | | | | | Procedures | Contact | Contact | +--------+ + + + + + | Closed | Specialty | Pulmonary | Diagnoses | | Miguel, | | | Services | Disease | Pulmonary | Fatou, | Lashae Sutherland, | | | Required | | hypertension | Vera B, | MD [address] | | | | | ([facility]) | MD [address] | | | | | | [address] | [address] | | | | | | [place], | [place], [place] | | | | | | [place] [address] | [address] Phone: | | | | | | | [phone] | | | | | | | Fax: | | | | | | | [phone] | +--------+ + + + + + Evaluate & Treat (Routine) +--------+ + + + + + | Status | Reason | Specialty | Diagnoses / | Referred By | Referred To | | | | | Procedures | Contact | Contact | +--------+ + + + + + | Closed | Specialty | Sleep | Diagnoses | | [facility] | | | Services | Medicine | Hypoxemia | Offenstein, | [facility] | | | Required | | | Vera B, | Disorder [address] | | | | | | MD [address] | | | | | [address] | [place], | | | | | | [place], | [place] [address] | | | | | | [place] [address] | Phone: | | | | | | | [phone] | | | | | | | Fax: | | | | | | | [phone] | +--------+ + + + + + Reason for Visit + + + | Reason | Comments | + + + | Establish Care | | + + + Evaluate & Treat (Routine) +--------+ + + + + + | Status | Reason | Specialty | Diagnoses / | Referred By | Referred To | | | | | Procedures | Contact | Contact | +--------+ + + + + + | Closed | Specialty | Pulmonary | Diagnoses | | Miguel, | | | Services | Disease | Pulmonary | Fatou, | Lashae Sutherland, | | | Required | | hypertension | Vera Farrar, | [address] | | | | | ([facility]) | [address] | | | | | | [address] | [address] | | | | | | [place], | [place], [place] | | | | | | [place] [address] | [address] Phone: | | | | | | | [phone] | | | | | | | Fax: | | | | | | | [phone] | +--------+ + + + + + Encounter Details +--------+---------+ + + + | Date | Type | Department | Care Team | Description | +--------+---------+ + + + | 07/04/ | Office | [facility] | Offenstein, | Pulmonary | | 2012 | Visit | PULMONARY [address] | Vera Farrar MD | hypertension (HCC) | | | | [place], | | (Primary Dx); [place] | | | | [place] [address] | | (obstructive sleep | | | | [phone] | | apnea); Hypoxemia; | | | | | | COPD (chronic | | | | | | obstructive | | | | | | pulmonary disease) | | | | | | ([facility]); Congestive | | | | | | heart failure with | | | | | | LV diastolic | | | | | | dysfunction, NYHA | | | | | | class 3 ([facility]); | | | | | | History of cocaine | | | | | | use [...] + + + | Blood Pressure | 122/64 | 07/04/2013 2:22 PM | | | | | PDT | | + + + + + | Pulse | 74 | 07/04/2013 2:22 PM | | | | | PDT | | + + + + + | Temperature | 36.5 C (97.7 F) | 07/04/2013 2:22 PM | | | | | PDT | | + + + + + | Respiratory Rate | - | - | | + + + + + | Oxygen Saturation | 92% | 07/04/2013 2:22 PM | N 2l | | | | PDT | | + + + + + | Inhaled Oxygen | - | - | | | Concentration | | | | + + + + + | Weight | 103.9 kg (229 lb) | 07/04/2013 2:22 PM | | | | | PDT | | + + + + + | Height | 149.9 cm (4' 11") | 07/04/2013 2:22 PM | | | | | PDT | | + + + + + | Body Mass Index | 46.25 | 07/04/2013 2:22 PM | | | | | PDT | | + + + + + documented in this encounter Progress Notes Vera Lainez MD - 07/04/2013 2:51 PM PDTFormatting of this note might be differe nt from the original. Pulmonary Consult Note Vera Lainez MD [facility] [address], [address] Referring Provider: Gela Augustin Amrik is a 47 y.o. y.o. female patient of Gela Otoole here today for evaluation of pulmonary hypertension. She was originally diagnosed with pulmonary hypertension when she went in to the hospital a bout 6 weeks ago. She had been being worked up for dyspnea and lower extremity edema, with f indings of severe pulmonary hypertension and obstructive lung disease. She initially presented with symptoms of cyanosis, dizziness, tachycardia, and chest pain. She was taken to [facility] and underwent evaluation there. She does not recall most of her hospi talization, and what was done there. She had an evaluation prior to her hospitalization, and had seen Dr. Doll, and had PFTs, echo, CT scan and sleep study done. She had been diagnos ed with the pulmonary hypertension, and consult was pending, when she acutely decompensated. She does not seem to remember most of her pre hospitalization work up either. While at [facility], she had a right heart cath done. Her wedge pressure was 10mmHg, her mean PA pressure was 63 mmHg. It was concluded that she had pulmonary hypertension, and that she pr esented with flash pulmonary edema due to high blood pressure that responded to Lasix en rou te to the hospital on top of chronic severe pulmonary hypertension from long standing low no cturnal oxygen. Later it states her pulmonary hypertension is "idiopathic," though I find th is conclusion somewhat suspect given her baseline low cardiac index, known nocturnal hypoxem ia, and long history of cocaine use. She reports that she has been having dizziness since her discharge. This is occuring when s he is walking. She is wearing her oxygen when she is walking around. Her oxygen is running 8 4-93% with exertion. She is on 2L of oxygen all the time. Her weight is difficult to track. They have been measuring it, but we don't have the values. At night she is on BiPAP with an oxygen bleed in. She is wearing the BiPAP for about 3 hour s and 50 minutes a night, and she is sleeping about 6 1/2 hours a night. She reports the res t of the time she is wearing her oxygen at 2L. Her AHI on her BiPAP is running at 54.6. Her baseline AHI is 64.2. She reports that she does not feel any better wearing her BiPAP galileo e. Her leak is high, but she seems unaware of this. It is not clear what exactly is going on with her BiPAP machine. She does not family history of pulmonary hypertension. Both of her parents fairly deirdre g, one from murder, one was run over. Her brothers all have substance abuse issues. Her one child was adopted. She notes that she does not have a history of cardiac disease that she is aware of. Currently she is able to walk 10-15 feet feet at their own pace on level ground.The distanc e walked is predominately limited by fatigue and dizziness. One year ago, she feels that she could walk at least 1 mile. She is not exercising regularly. They note that she has gained a lot of weight, some of which is fluid, some of which is not. She is up about 50 pounds of weight, though has already diuresed some, maybe 18 pounds? She has taken diet pills in the past, about 16 years ago. She took Dexetrim "like candy" fo r about 2 weeks. She has never taken prescription diet pills. She has also used cocaine: sno rted, smoked and injected, for a prolonged period of time in the past. She has been tested for HIV, last time was 5 months ago, at the clinic, and since then has not had risk factors for HIV. She was tested at [facility] as well. Past Medical History Past Medical History Diagnosis [...] Mouth surgery 2 teeth removed Cardiac catherization Family History: Family History Problem Relation Age of Onset Tobacco Use Brother Alcohol abuse Brother Drug abuse Brother Mental illness Brother Tobacco Use Brother Alcohol abuse Brother Drug abuse Brother Mental illness Brother Tobacco Use Brother Alcohol abuse Brother Drug abuse Brother Tobacco Use Brother Alcohol abuse Brother Drug abuse Brother Tobacco Use Brother Alcohol abuse Brother Drug abuse Brother Social History: History Social History Marital Status: Single Spouse Name: N/A Number of Children: N/A Years of Education: N/A Occupational History Disabled. [employer] Social History Main Topics Smoking status: Former Smoker -- 1.0 packs/day for 20 years Types: Cigarettes Quit date: 05/14/2013 Smokeless tobacco: None Alcohol Use: Yes history of abuse Drug Use: Yes Special: Cocaine history of cocaine use Sexually Active: None Other Topics Concern None Social History Narrative Lives at [facility]. Allergies: Allergies Allergen Reactions Erythromycin Metronidazole Penicillins Sulfa Antibiotics Medications: Outpatient Encounter Prescriptions as of 07/04/2013 Medication Status Sig Dispense Refill acetaminophen (MAPAP) 325 mg tablet Active Take 650 mg by mouth every 4 hours as needed . albuterol (VENTOLIN HFA) 90 mcg/puff inhaler Active Inhale 2 puffs into the lungs every 6 hours as needed. albuterol-ipratropium (COMBIVENT) 103-18 mcg/puff inhaler Discontinued Inhale 2 puffs i nto the lungs every 6 hours as needed. ascorbic acid (VITAMIN C) 500 mg tablet Active Take 500 mg by mouth Daily. buPROPion (WELLBUTRIN) 100 mg tablet Active Take 100 mg by mouth 2 times daily. cetirizine (ZYRTEC) 10 mg tablet Active Take 10 mg by mouth Daily. cholecalciferol (VITAMIN D-3) 2000 UNITS TABS Active Take 2,000 Units by mouth Daily. Dextromethorphan-Guaifenesin (ROBITUSSIN COUGH/CHEST DM MAX) 10-200 MG/5ML LIQD Discont inued Take by mouth. diphenhydrAMINE-acetaminophen (TYLENOL PM EXTRA STRENGTH) 25-500 MG TABS Discontinued T sandro 1 tablet by mouth nightly as needed. divalproex (DEPAKOTE) 500 mg EC tablet Active Take 500 mg by mouth 3 times daily. docusate sodium (COLACE) 50 MG capsule Active Take 50 mg by mouth 2 times daily. estradiol (ESTRACE) 1 mg tablet Active Take [...] mcg by mouth 2 bhargav es daily. meloxicam (MOBIC) 15 mg tablet Active Take 15 mg by mouth Daily. miconazole (MICONAZOLE 7) 2% vaginal cream Active Place 1 applicator vaginally 2 times daily. [place]-3 Fatty Acids (SEA-OMEGA 30) 1200 MG CAPS Active Take by mouth. omeprazole (PRILOSEC) 20 mg capsule Active Take 20 mg by mouth every morning (before br eakfast). ondansetron (ZOFRAN ODT) 4 mg disintegrating tablet Active Take 4 mg by mouth every 8 h ours as needed. PARoxetine (PAXIL) 20 mg tablet Active Take 20 mg by mouth every morning. phenytoin (DILANTIN) 100 mg ER capsule Discontinued Take by mouth 3 times daily. potassium chloride (K-DUR) 20 mEq tablet Active Take 20 mEq by mouth 2 times daily. risperiDONE (RISPERDAL) 4 MG tablet Active Take 4 mg by mouth Daily. selenium sulfide (SELSUN) 1 % LOTN Discontinued Apply topically Daily. simvastatin (ZOCOR) 20 mg tablet Active Take 20 mg by mouth nightly. traMADol (ULTRAM) 50 mg tablet Discontinued Take 50 mg by mouth every 6 hours as needed . Review of Systems Constitutional: Denies fever, chills, and sweats. Weight is not clear, see below. Sleep: On CPAP. Still tired. Eyes: Denies vision change and eye irritation. ENT: Denies earache, decreased hearing, nasal congestion, nosebleeds, sore throat, and sandra rseness. Resp: See HPI. CV: Denies chest pain, palpitations, syncope. Her feet have gotten more swollen lately. Sebastian boland is being weighed every 3 days. Her weight goes up and down. Average is up down 19 pounds t his month compared to March. GI: Denies heartburn, nausea, vomiting, and abdominal pain. : Denies difficulty emptying bladder and nocturia. Musculoskeletal: Denies joint pain/stiffness, joint swelling, and muscle cramps. Derm: Has a rash under her breasts and in her groin. Yeast infection. Neurologic: Denies frequent headaches, seizures, numbness or tingling in hands or feet, and vertigo. Psych: Has mental illness. Endo: Denies cold intolerance, heat intolerance, and unusual weight change. Heme: Denies abnormal bruising, bleeding, and enlarged lymph nodes. Allergy: Denies food allergies, allergic rash, and hay fever. Objective BP 122/64 | Pulse 74 | Temp 36.5 C (97.7 F) (Tympanic) | Ht 1.499 m (4' 11") | Wt 103.8 74 kg (229 lb) | BMI 46.25 kg/m2 | SpO2 92% General Appearance: Alert, cooperative, no distress, appears stated age, in a wheelchair a nd on oxygen, her affect is somewhat slow, she is accompanied by two caregivers today Head: Normocephalic, without obvious abnormality, atraumatic Eyes: PERRL, conjunctiva clear, no scleral icterus, EOM's intact Ears: Normal TM's, external auditory canals, normal acuity Nose: Nares normal, septum midline, mucosa with some dried blood Mouth: No oral lesions or exudate Neck: Supple, symmetrical, no adenopathy Lungs: No accessory muscle use, breath sounds are somewhat diminished bilaterally with pr olongation of the expiratory phase, no wheezes, crackles or rhonchi Chest Wall: No deformity Heart: Regular rate and rhythm, though somewhat distant, no murmur, rub or gallop Abdomen: Soft, non-tender, non-distended, obese Extremities: No cyanosis, or clubbing, trace to 1+ pitting pedal and ankle edema, wearing HUMZA hose Pulses: Radial pulses 2+ and symmetric Skin: Warm and dry Lymph nodes: Cervical and supraclavicular nodes normal Data: Chest CT done on March 27, 2013 was reviewed and interpreted in clinic today. It shows no daryl dence of pulmonary emboli, some areas of atelectasis, and some very minor emphysematous nicolas ges. There is a small right pleural effusion. Diagnostic polysomnogram was done on March 13, 2013 and reviewed today, and showed an AHI of 64 with desaturations to 83%. She spent 209 minutes with a saturation less than 89%. PAP titration study was done on April 08, 2013 and she was titrated to BiPAP, which was revie wed today. Her AHI on BiPAP was 9.9, on a pressure of 18/14cm H2O. Echocardiogram done at [facility] on May 02, 2013 was reviewed in clinic today. It shows mild tri cuspid regurgitation, but elevated right sided systolic pressures with an enlarged RV, and R A strongly suggestive of pulmonary hypertension. Estimated EF of 60-65%. Septum was D shaped . No comment is made on diastolic function of the LV. Small pericardial effusion is noted. Right heart catheterization was done on May 10, 2013 with results reviewed today. Mean PA was noted to be 63mmHg. She was noted to have a severely reduced CI (Rehan CI 1.0), but a nor mal wedge at the time of the heart cath, 10mmHg. There was no response to inhaled nitric oxi de. Overnight oximetry is reported as being done with the patient spending 99% of the time grea ter than 90%, not listed on what, but presumably 2L as this is what she was discharged on. Pulmonary function tests were performed prior to clinic today. They were consistent with mo derate obstructive lung disease prior to administration of inhaled bronchodilator and are te chnically normal after. There was a significant bronchodilator response based on change in F EV1. Prior to inhaled bronchodilator, there was a reduction in FVC. The patient was unable t o perform lung volume and diffusion capacity testing. Pulmonary function tests were performed on May 07, [address] [facility] in the pulmonary function l ab and were reviewed and interpreted in clinic today. They show spirometry consistent with moderately severe obstructive lung disease, there is a concomitant reduction in FVC that sug gests restrictive physiology. No bronchodilator was given. No lung volumes or diffusion capa city testing was done. HIV non reactive. Hepatitis C negative. CHAMP panel negative. ANCA <1:20. No further rheumatological labs were done that I find. BiPAP Data: Dates: 06/03/13-07/02/13 Baseline AHI: 64 Machine type: Respironics BiPAP auto Home Health Company: [facility] BiPAP Pressure: 18/14 cmH2O AHI: 54.6 events/hour Total number of days: 30 Number of days used: 29 Median daily usage: 3:50 hours Percent of days used for more than 4 hours: 56.7 % Average percent of night in large leak: 88.9% Gela Otoole's notes were reviewed in clinic today. Avila Doll's notes were reviewed in clinic today. Records from [facility] are reviewed in clinic today. Assessment 1. Pulmonary hypertension - I suspect that her disease is a combination of class 1 (cocaine abuse, question of idiopathic, and need to finish excluding CTD), class 2 (has some evidenc e of reduced cardiac function, though this is not completely clear to me with normal echo, n ormal wedge, etc.), and class 3 (severe GLORIA with desaturations, obesity hypoventilation, noc turnal hypoxemia and some degree of COPD as well). There is no evidence of class 4 or class 5 disease. She did not seem to have complete autoimmune serologies done, as I don't see a CK or aldola se, and I prefer specific autoimmune serologies to the CHAMP panel. Once work up is complete, we need to discuss treatment. Medical therapy is indicated for dr delaney induced PH, so she would be a candidate even if this is not idiopathic disease. She was s tarted on sildenafil, but it seems to have been ordered as Viagra, not Revatio, and I am not certain if this is why it was not continued after discharge. I assume the insurance will no t cover Viagra for this indication. The current caregivers note it was not on her medication list when she came to them, but she was at a longterm in the interim. I am going to have her see a pulmonary hypertension specialist (Dr. Rivera, [facility])to dec deb on most appropriate medication, though if there is a delay, we will order the Revatio an d attempt to get approval. She also needs improved control of her sleep apnea (though it would seem at night her oxyge n is adequate), and also improved daytime oxygen therapy. 2. GLORIA (obstructive sleep apnea) - On BiPAP with very poor control. We need to have her do a mask fitting appointment and then a repeat BiPAP titration. I will have her see Jaxon in e sleep center first to fit her and then do a BiPAP titration to try and get better control of her disease. Even in the sleep center, she only achieved an AHI of 10. I am not certain o f what is going on at night, as the patient reported that she was not sleeping well, and cou ld provide little information. We will have the sleep center work with her more. 3. Hypoxemia - On oxygen, 2L with exertion, which is suboptimal, at night when not on her B iPAP. She had an overnight oximetry at [facility] (I think on 2L?) which showed good oxygenation. We will repeat ambulating oximetry today. 4. COPD (chronic obstructive pulmonary disease) - On albuterol as needed. Her PFTs have bee n variable, likely due to difficulty performing them. We will address further at upcoming ap pointment, and likely add inhaled corticosteroid given significant bronchodilator response a nd reversion to "technically normal" on our spirometry today. 5. Congestive heart failure with LV diastolic dysfunction, NYHA class 3 - Based on right he art cath, this suggests depressed cardiac output. I wonder if this is due to impairment from her right ventricle compressing the left, as the LV EF was normal on echo. She is apparentl y to follow up with Dr. Doll. 6. History of cocaine use - In remission, but given prolonged use, I suspect this is a sign ificant risk factor for her pulmonary hypertension. Plan 1. Check ambulating oximetry to titrate oxygen. 2. Mask fit appointment with Jaxon. 3. BiPAP titration to fix her AHI issues in conjunction with mask fit appointment. 4.She will need to follow up with cardiology for her LV dysfunction issues (reduced cardiac output with flash pulmonary edema), and diuresis. 5. At her next appointment, I will review her COPD medication package and revise this. 6.Complete CTD work up with appropriate labs, ordered today. 7.See pulmonary hypertension specialist in [place], Dr. Rivera to address question of medi cations for idiopathic, or drug induced component, which I suspect there is some. If delay in seeing PH specialist, we will order Revatio and work on approval. 8. No anticoagulation for now given her seizure disorder. She was advised to call if new pulmonary symptoms were to develop. Return to clinic in 4 weeks, or sooner with concerns. CC: Gela Otoole, Avila Doll MD, Lashae Rivera MD Portions of this report were transcribed using voice recognition software. Every effort wa s made to ensure accuracy; however, inadvertent computerized geothermal powerplant mechanic helper errors may be pre sent. documented in t his encounter Miscellaneous Notes Miscellaneous - ONBASE SCAN [facility]APR - 07/04/2013 12:00 AM PDT iscellaneous - ONBASE SCAN WAMT - 07/04/2013 12:00 AM PDTEle ctronically signed by Thor Castro at 07/30/2013 3:55 PM PDTMiscellaneous - ONBASE SCAN [facility] T - 07/04/2013 12:00 AM PDT d ocumented in this encounter Plan of Treatment + +------+--------+ + + | Name | [...] PDT | + +------+--------+ + + + + +--------+ + + | Name | Type | Priori | Associated Diagnoses | Order Schedule | | | | ty | | | + + +--------+ + + | Aldolase | Lab | Routin | Pulmonary | Expected: | | | | e | hypertension (HCC) | 07/04/2013, Expires: | | | | | | 07/04/2014 | + + +--------+ + + | Cyclic Citrullinated | Lab | Routin | Pulmonary | Expected: | | Peptide Ab, IgG | | e | hypertension (HCC) | 07/04/2013, Expires: | | | | | | 07/04/2014 | + + +--------+ + + | PRACTICE PROFESSIONAL Ab, IgG | Lab | Routin | Pulmonary | Expected: | | | | e | hypertension (HCC) | 07/04/2013, Expires: | | | | | | 07/04/2014 | + + +--------+ + + | Rowley Ab, IgG | Lab | Routin | Pulmonary | Expected: | | | | e | hypertension (HCC) | 07/04/2013, Expires: | | | | | | 07/04/2014 | + + +--------+ + + | Pulse oximetry | Respiratory | Routin | Pulmonary | Expected: | | titation | Care | e | hypertension (HCC) | 07/04/2013, Expires: | | | | | | 07/04/2014 | + + +--------+ + + | Oxygen Therapy | Respiratory | Routin | Pulmonary | Expected: | | | Care | e | hypertension (HCC) | 07/04/2013, Expires: | | | | | | 07/04/2014 | + + +--------+ + + + + +--------+ + + | Name | Type | Priori | Associated Diagnoses | Order Schedule | | | | ty | | | + + +--------+ + + | Ambulatory Referral | Outpatient | Routin | Hypoxemia | 1 Occurrences | | to Sleep Studies | Referral | e | | starting 07/04/2013 | | | | | | until 07/04/2014 | + + +--------+ + + | Ambulatory Referral | Outpatient | Routin | Pulmonary | 1 Occurrences | | to Pulmonology | Referral | e | hypertension (HCC) | starting 07/04/2013 | | | | | | until 07/04/2014 | + + +--------+ + + documented as of this encounter Results Rheumatoid Factor, Quant (07/04/2013 4:21 PM PDT) + + + + + + | Component | Value | Ref Range | Performed | Pathologist | | | | | At | Signature | + + + + + + | RHEUMATOID | <20Comment: Testing | <20 IU/mL | [facility] | | [facility] | Performed: [facility], [address] [facility] [address] | | [address] [place] | | MEDICAL | | | | [id number]: [id number] | | CENTER - | | | [...] [address] | [place] | [phone] | | [facility] | | [address] | | | - LABORATORY | | | | + + + + + | [facility] [facility] | [address] | [place] | | | [facility] | | [address], [facility] | | | - LABORATORY | | [...] + | [facility] | [address] | [place] | [phone] | | [facility] | | [address] | | | - LABORATORY | | | | + + + + + | [facility] | [address] | [place], [place] | | | [facility] | | [address], [facility] | | | - LABORATORY | | | | + + + + + documented in this encounter Visit Diagnoses + + | Diagnosis | + + | Pulmonary hypertension (HCC) - Primary Other chronic pulmonary heart diseases | + + | GLORIA (obstructive sleep apnea) Obstructive sleep apnea (adult) (pediatric) | + + | Hypoxemia | + + | COPD (chronic obstructive pulmonary disease) (HCC) Chronic airway obstruction, not | | elsewhere classified | + + | Congestive heart failure with LV diastolic dysfunction, NYHA class 3 (HCC) Congestive | | heart failure, unspecified | + + | History of cocaine use Cocaine abuse, in remission | + + documented in this encounter
--- OUTSIDE RECORDS SUMMARY | ~2020-07-30 | XMS | Encounter Summary ---
Demographics + + + | Address | [address] | | | [place] [address] | + + + | Home Phone [...] + + + | Author | [facility] | | | and [place] | + + + | Organization | [facility] | | | and [place] | + + + | Address | Unknown | + + + | Phone | Unavailable | + + + Support + + + + + | Name | Relationship | Address | Phone | + + + + + | [employer] | ECON | [phone] | | | | | Unknown | | + + + + + Care Team Providers + +------+ + | Care Outsoles Channel Opener Name | Role | Phone | + +------+ + | Gela Trimble NP | PCP | | + +------+ + Reason for Visit + + + | Reason | Comments | + + + | Follow-up | 3 month | + + + Evaluate & Treat [...] | Chronic | Gela Mistry, | Vera B, | | | | Pulmonology | airway | [employer] [address] | MD | | | | | obstruction, | IRMA | | | | | | not | [address] | | | | | | elsewhere | [place], | | | | | | classified | [place] [address] | | | | | | Obstructive | Phone: | | | | | | sleep apnea | [phone] | | | | | | (adult) | Fax: | | | | | | (pediatric) | [phone] | | | | | | Procedures | | | | | | | F/U | | | +--------+--------+ + + + + Encounter Details +--------+---------+ + + + | Date | Type | Department | Care Team | Description | +--------+---------+ + + + | 12/11/ | Office | [facility] [place] | Fat[place], | Primary pulmonary | | 2015 | Visit | PULMONARY [address] | Vera Farrar MD | hypertension | | | | [place], | | (Primary Dx); COPD | | | | [place] [address] | | (chronic obstructive | | | | [phone] | | pulmonary disease); | | | | | | GLORIA (obstructive | | | | | | sleep apnea); | | | | | | Tobacco use | | | | | | disorder; Exercise | | | | | | hypoxemia; Sleep | | | | | | related hypoxemia | +--------+---------+ + + + Social History [...] + + + | Blood Pressure | 120/68 | 12/11/2014 8:31 AM | | | | | PST | | + + + + + | Pulse | 70 | 12/11/2014 8:31 AM | | | | | PST | | + + + + + | Temperature | 37.2 C (98.9 F) | 12/11/2014 8:31 AM | | | | | PST | | + + + + + | Respiratory Rate | 16 | 12/11/2014 8:31 AM | | | | | PST | | + + + + + | Oxygen Saturation | 92% | 12/11/2014 8:31 AM | on room air (removed | | | | PST | oxygen after | | | | | walking to room) | + + + + + | Inhaled Oxygen | - | - | | | Concentration | | | | + + + + + | Weight | 92.4 kg (203 lb 11.2 | 12/11/2014 8:31 AM | | | | oz) | PST | | + + + + + | Height | 149.9 cm (4' 11") | 12/11/2014 8:31 AM | | | | | PST | | + + + + + | Body Mass Index | 41.14 | 12/11/2014 8:31 AM | | | | | PST | | + + + + + documented in this encounter Patient Instructions Patient Instructions Vera Lainez MD - 12/11/2014 8:58 AM PSTShe needs an appoin tment to see Dr. Rivera in [place] at [facility]. I will get updated labs from Gela and if we need to add anything, I will send orders to [facility]. Okay to liberalize fluid intake to 2500 cc per day. I want you to increase walking to 800 feet six times weekly. If she is stable walking without the walker, she can try walking carrying the oxygen tank i n a backpack. You can try a small hydration pack for the mini oxygen tank and feed the oxyge n tubing out through where the water tube goes. You can find these inexpensively at [facility]. Turn the humidity up on your CPAP to 5. Ask the [employer] for a humidifier for the oxygen concentrator if you don't have one. Alzada nasal saline spray in your nose several times a day to keep it moist.Electronically s igned by Vera Lainez MD at 12/11/2014 9:16 AM PST documented in this encounter Progress Notes Vera Lainez MD - 12/11/2014 8:45 AM PSTFormatting of this note might be differe nt from the original. Pulmonary Follow Up HPI Margarita Rowley is a 49 y.o. female patient of Gela Trimble here today for follow up of primary pulmonary hypertension. At their last visit, we had continued her on Letairis and had liberalized her fluids and fr ee meals slightly. She notes she took up smoking in August after her brother and ende d up smoking 1/2ppd. She finally quit yesterday and went on the nicotine patch. She feels li ke she is doing better since she quit, but she is coughing up yellow and green phlegm. She i s not certain how long she has been coughing for. She is currently on a regimen of Letairis 10mg. We have her on a 2L a day fluid restriction as well. She takes Qvar 80mcg 1 puff twice daily for her COPD. She is not using her rescu e inhaler. She returns today for routine follow up. Currently she is able to walk several hundred yards at her own pace on level ground. She is exercising regularly. She is doing the prescribed 450 feet six times weekly. She is not doi ng additional exercise. She has been evaluated for nocturnal oxygen and does use it. She is currently on 5 LPM at n ight. She Is using no oxygen at rest and 4L with exertion. She denies any leg swelling. She is not having shortness of breath unless she coughs. She i s not waking up at night short of breath. She is wearing her CPAP every night. She is follow ing with the sleep center. 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 Allergies: Allergies Allergen Reactions Erythromycin Metronidazole Penicillins Sulfa Antibiotics Medications: Outpatient Encounter Prescriptions as of 12/11/2014 Medication Sig Dispense Refill acetaminophen (MAPAP) 325 [...] TABS Take 2,000 Units by mouth Daily. [place] Starch POWD by Does not apply route [...] mg onto the skin every 24 hours. [place]-3 Fatty Acids (SEA-OMEGA 30) 1200 MG CAPS [...] 2 times daily. Respiratory Therapy Supplies MISC Please contact Dr. Lainez's office if oxygen leve l drops below 88% more than 3 times during a 24 hours time period. 1 each 0 Respiratory Therapy Supplies MISC Replacement CPAP supplies. Mask, head gear, chinstrap , hoses, humidifier chamber and filters. Lifetime. Dx: 327.23 1 each 0 risperiDONE (RISPERDAL) 1 mg [...] facility-administered encounter medications on file as of 12/11/2014. Review of Systems Constitutional: Denies fever, chills, and sweats. Has lost an additional 5 pounds. Sleep: Sleeping well. Eyes: Vision gets blurry. Has an eye appointment coming up. ENT: Denies earache, decreased hearing, nosebleeds, sore throat, and hoarseness. Resp: See HPI. CV: Denies palpitations, syncope, and peripheral edema. Had a chest pain yesterday. It bozena t away with relaxing. GI: Denies heartburn, nausea, vomiting, and abdominal pain. : Denies difficulty emptying bladder. Had some dysuria and was treated. Has had some abno rmal bleeding and had a PAP. Objective BP 120/68 | Pulse 70 | Temp(Src) 37.2 C (98.9 F) (Temporal) | Resp 16 | Ht 1.499 m (4' 11") | Wt 92.398 kg (203 lb 11.2 oz) | BMI 41.12 kg/m2 | SpO2 92% | ? No General Appearance: Alert, cooperative, [...] rate and rhythm, no murmur, rub or gallop, I do not appreciate a split S2 Abdomen: Soft, non-tender, non-distended, mildly obese Extremities: No cyanosis, clubbing, or edema Pulses: Radial pulses 2+ and symmetric Skin: Warm and dry Lymph nodes: Cervical and supraclavicular nodes normal Data: Echocardiogram was performed on September 11, 2014 and results were reviewed in clinic today . It shows normal LV size and function, mild mitral and tricuspid insufficiency, and estimat ed RVSP of 42-47 mm Hg, and grade 1 diastolic duysfunction. Since last echocardiogram done i n February of 2014, RVSP has decreased from an estimated 79-84 mmHg to 42-47 mmHg. Ambulating oximetry was done on September 11, 2014 and was reviewed and interpreted in clini c today. It shows she required no oxygen at rest as her saturation off of oxygen was 92%. Wi th exertion, she required 4L pulse to keep her saturation more than 89%. Immunization History Administered Date(s) Administered TRIVALENT INFLUENZA, PRESERATIVE FREE (PED/ADOL/ADULT) 07/31/2013, 08/11/2014 Assessment 1. Primary pulmonary hypertension - Doing very well. Follow up echo showed a marked decreas e in her pulmonary pressures. She is far overdue for her follow up appointment with Dr. Rico in, so I reminded them to make this. I did okay liberalizing her fluid to 2500cc a day as he r pressures are looking good, but reminded her that she is getting better in part because of all the intensive management. We will also continue to increase her exercise, and by February, I hope to have [place]. 2. COPD (chronic obstructive pulmonary disease) - On Qvar only, and not having issues. 3. GLORIA (obstructive sleep apnea) -BiPAP ST IPAP 16/EPAP 5, rate 8, O2 bleed in 5. Following with Jacky in the sleep center with good control and compliance. 4. Tobacco use disorder - Recent relapse after her brother's . Now on nicotine patches having quit yesterday. I checked and see no interaction with other significant medications. 5. Exercise hypoxemia (HCC) - On 4L with exertion only during the daytime. Rechecked at [facility] t visit. They are not having issues with low saturations. 6. Sleep related hypoxemia - On oxygen 5L bled in to her BiPAP machine. Plan 1. Follow up appointment to see Dr. Rivera in [place] at [facility]. 2. I will get updated labs from Gela and if we need to add anything, [facility]. 3. Okay to liberalize fluid intake to 2500 cc per day. 4. Increase walking to 800 feet six times weekly. Goal is to have her out walking 1/8th [place] 1/4 [place]. 5. If she is stable walking without the walker, she can try walking carrying the oxygen torres k in a backpack. 6. Turn the humidity up on the BiPAP to 5. 7. Ask the home health company for a humidifier for the oxygen concentrator if they don't h ave one. 8. Alzada nasal saline spray in her nose several times daily. 9. Continue on Qvar, furosemide and Letairis. 10. We can repeat her echo in February. She was advised to call if new pulmonary symptoms were to develop. Return to clinic in 3 months, or sooner with concerns. CC: Gela Trimble NP, Lashae Rivera MD Portions of this report were transcribed using voice recognition software. Every effort wa s made to ensure accuracy; however, inadvertent computerized leasing sales consultant errors may be pre sent. documented in [...] apnea (adult) (pediatric) | + + | Tobacco use disorder | + + | Exercise hypoxemia Hypoxemia | + + | Sleep related hypoxemia Sleep related hypoventilation/hypoxemia in conditions | | classifiable elsewhere | + + documented in this encounter
--- OUTSIDE RECORDS SUMMARY | ~2020-07-30 | XMS | Encounter Summary ---
Demographics + + + | Address | [address] | | | [place] [address] | + + + | Home Phone [...] + | [employer] | ECON | [id number] | | | | | Unknown | | + + + + + Care Team Providers + +------+ + | Care Machine Filler Servicer Name | Role | Phone | + [...] + + | 09/25/ | Office | [facility] | Jacky Calderon PA | Primary central | | 2012 | Visit | SLEEP DISORDER [address] | [address] | sleep apnea (Primary | | | | [address] [place] | [place] | Dx) | | | | [place] [address] | [address] | | | | | [phone] | | | +--------+---------+ + + + [...] n/a Machine type: Respironics BiPAP Auto with [employer] Quattro FX full face mask obtained from: [facility] pressure: 18/14 cm Nights using [...] weeks, sooner prn. Thirty minutes were spent [id number], wit h the majority of time spent [...]
--- OUTSIDE RECORDS SUMMARY | ~2020-07-30 | XMS | Encounter Summary ---
Demographics + + + | Address | [address] | | | [place] [address] | + + + | Home Phone [...] + + + | Author | [facility] | | | and [place] | + + + | Organization | [facility] | | | and [place] | + + + | Address | Unknown | + + + | Phone | Unavailable | + + + Support + + + + + | Name | Relationship | Address | Phone | + + + + + | [employer] | ECON | [phone] | | | | | Unknown | | + + + + + Care Team Providers + +------+ + | Care Ball Points Inspector Name | Role | Phone | + +------+ + | Gela Trimble NP | PCP | | + +------+ + Reason for Visit +--------+--------+ + | Reason | Onset | Comments | | | Date | | +--------+--------+ + | Other | 12/27/ | nocturnal O2 increase | | | 2014 | | +--------+--------+ [...] MD | increase) | | | | [place], | | | | | | [place] [address] | | | | | | [phone] | | | +--------+ + + + [...] Nino RN - 12/27/2013 12:52 PM PSTCalled Liliya onfirmed O2 increase per Dr Lainez.Electronically signed by Tarah Nino RN at 12/02 12:53 PM PSTTelephone Encounter - Vera Lainez MD - 12/27/2013 12:20 PM PST Yes, this is based on sleep study results. Claridge see PSG results as documented. Electronical ly signed by Vera Lainez MD at 12/27/2013 12:20 PM PSTTelephone Encounter - Tarah Dalton RN - 12/27/2013 9:43 AM PSTStephanie from [facility] with that it is okay to increase [place]'s nocturnal O2 to 5 l/m recommended by Dr Ruelas. documented in this encounter Plan of Treatment Not on filedocumented as of this encounter Visit Diagnoses Not on filedocumented in this encounter"
--- OUTSIDE RECORDS SUMMARY | ~2020-07-30 | XMS | Encounter Summary ---
Demographics + + + | Address | [address] | | | [place] [address] | + + + | Home Phone | | + + + | Preferred Language | Unknown | + + + | Marital Status | Single | + + + | Anabaptist Affiliation | [id number] | + + + [...] + | [employer] | ECON | [phone] | | | | | Unknown | | + + + + + Care Team Providers + +------+ + | Care Off Premise Service Representative Name | Role | Phone [...] [place], [place] | | | | | [address] | [address] | | | | | [phone] | [phone] | | | | | | | [...]
--- OUTSIDE RECORDS SUMMARY | ~2020-07-30 | XMS | Encounter Summary ---
Demographics + + + | Address | [address] | | | [place] [address] | + + + | Home Phone [...] Organization | [facility] | | | and [place] | + + + | Address | Unknown | + + + | Phone | Unavailable | + + + Support + + + + + | Name | Relationship | Address | Phone | + + + + + | [employer] | ECON | [phone] | | | | | Unknown | | + + + + + Care Team Providers + +------+ + | Care Iridologist Name | Role | Phone | + [...] + + | 07/26/ | Office | [facility] | Jacky Calderon PA | Primary central | | 2017 | Visit | SLEEP DISORDER [address] | [address] | sleep apnea (Primary | | | | [address] [place] | [place], [place] | Dx) | | | | [place] [address] | [address] | | | | | [phone] | | | +--------+---------+ + + + [...] Jacky Calderon PA - 07/26/2017 10:30 AM ANDREYGo to [facility] in [facility] to get a Respironics AmaraView full face mask. Change to [facility] in [place], if not able to get this mask at [facility] in [place]. Wear BiPAP 100% of the time asleep. documented in this encounter Progress Notes Jacky Calderon PA - 07/26/2017 10:30 AM PDT Subjective: Patient ID: Margarita Rowley is a 51 y.o. female. HPI last office visit: 07/23/2016 date of polysomnography: 03/13/2013 at [facility] AHI: 64.2 O2%: n/a Machine type: Respironics BiPAP Auto Mask type: [employer] Quattro FX full face mask DME: [facility] in [place] pressure: 16/5 cm with backup rate of [...] She may be interested in us ing [facility] in [place] for her supplies. She says she has had some difficulty with gettin g supplies from [facility] in [place]. She is also napping during the day [...] Assessment: Problem #1: PRIMARY CENTRAL SLEEP APNEA ([id number]) This is controlled with BiPAP and oxygen [...]
--- OUTSIDE RECORDS SUMMARY | ~2020-07-30 | XMS | Encounter Summary ---
Demographics + + + | Address | [address] | | | [place] [address] | + + + | Home Phone [...] + | Organization | [facility] | | | and [place] | + + + | Address | Unknown | + + + | Phone | Unavailable | + + + Support + + + + + | Name | Relationship | Address | Phone | + + + + + | [employer] | ECON | [phone] | | | | | Unknown | | + + + + + Care Team Providers + +------+ + | Care Wall Covering Contractor Name | Role | Phone | [...] obstructive | [address] | [address] | | | | | pulmonary | [address] | [place], [place] | | | | | disease, | [place], | [address] | | | | | unspecified | [place] | Phone: | | | | | (HCC) | [address] | [phone] | | | | | Procedures | Phone: | Fax: | | | | | OFFICE VISIT | [phone] | [phone] | | | | | EXTENDED | Fax: | | | | | | | [phone] | | +--------+--------+ + + + + Encounter Details +--------+---------+ + + + | Date | Type | Department | Care Team | Description | +--------+---------+ + + + | 01/31/ | Office | [facility] | Scout Arthur, | Primary pulmonary | | 2019 | Visit | PULMONARY [address] | hypertension (HCC) | | | | [place], | [place] [address] | (Primary Dx); | | | | [place] [address] | [phone] | Hypoxia | | | | [phone] | | | +--------+---------+ + + + [...] Scout Arthur MD - 01/31/2019 2:00 PM [id number] former smoker with primar y pulmonary hypertension [...] so we are asking [facility] to give her a new BiPAP machine [...] is a note from Dr. Huang in [place] that CMP, CBC, and ESR w ere [...] BiPAP equipme nt. We spent 20 minutes, [id number], at least half in counseling. Word processing [...]
--- OUTSIDE RECORDS SUMMARY | ~2020-07-30 | XMS | Encounter Summary ---
Demographics + + + | Address | [address] | | | [place] [address] | + + + | Home Phone [...] Organization | [facility] | | | and [place] | + + + | Address | Unknown | + + + | Phone | Unavailable | + + + Support + + + + + | Name | Relationship | Address | Phone | + + + + + | [employer] | ECON | [phone] | | | | | Unknown | | + + + + + Care Team Providers + +------+ + | Care Vp Informatics Name | Role | Phone | + [...] [place] | | | | | | [address] | (Fax) | | | | | [phone] | | | +--------+ + + + [...]
--- OUTSIDE RECORDS SUMMARY | ~2020-07-30 | XMS | Encounter Summary ---
Demographics + + + | Address | [address] | | | [place] [address] | + + + | Home Phone [...] + | [employer] | ECON | [phone] | | | | | Unknown | | + + + + + Care Team Providers + +------+ + | Care Skeet Operator Name | Role | Phone | [...] | | | | [place] | [address] | | | | | [place] | [phone] | | | | | [address] | | | | | | [phone] | | | +--------+ + + + [...]
--- OUTSIDE RECORDS SUMMARY | ~2020-07-30 | XMS | Encounter Summary ---
Demographics + + + | Address | [address] | | | [place] [address] | + + + | Home Phone [...] + | [employer] | ECON | [phone] | | | | | Unknown | | + + + + + Care Team Providers + +------+ + | Care Cloth Desizing Range Tender Name | Role | Phone | + +------+ + | Yuni Shrestha | PCP | | + +------+ + Encounter Details +--------+ + + + + | Date | Type | Department | Care Team | Description | +--------+ + + + + | 03/20/ | Hospital | [facility] | Conversion | Diagnosis unknown | | 2017 | Encounter | CONVERSION [address] | Transaction, | | | | | [address] | Provider Unknown | | | | | [facility] | [phone] | | | | | [address] | | | | | | [phone] | | | +--------+ + + + [...] + + + +---------+ + + | [place] Starch POWD | by Does not apply [...] times daily. | | | 17 | 0 | + + + +---------+ [...]
--- OUTSIDE RECORDS SUMMARY | ~2020-07-30 | XMS | Encounter Summary ---
Demographics + + + | Address | [address] | | | [place] [address] | + + + | Home Phone [...] + + + | Author | [facility] | | | and [place] | + + + | Organization | [facility] | | | and [place] | + + + | Address | Unknown | + + + | Phone | Unavailable | + + + Support + + + + + | Name | Relationship | Address | Phone | + + + + + | [employer] | ECON | [phone] | | | | | Unknown | | + + + + + Care Team Providers + +------+ + | Care Project Portfolio Analyst Name | Role | Phone | [...] | Primary | Offenstein, | [address] | | | | | pulmonary | Vera B, | [place], | | | | | hypertension | MD [address] | [place] | | | | | ([facility]) | [address] | [address] | | | | | Procedures | [place], | Phone: | | | | | ECHO | [place] [address] | [phone] | | | | | Complete | | Fax: | | | | | | | [phone] | +--------+--------+ + + + + Reason [...] | | | Pulmonology | airway | DELI BAKERY CLERK [address] | MD [address] | | | | | obstruction, | [address] | [address] | | | | | not | [address] | [place], | | | | | elsewhere | [place], | [place] [address] | | | | | classified | [place] [address] | | | | | | COPD | Phone: | | | | | | Procedures | [phone] | | | | | | 3 MO FOLLOW | Fax: | | | | | | UP | [phone] | | +--------+--------+ + + + + Encounter Details +--------+---------+ + + + | Date | Type | Department | Care Team | Description | +--------+---------+ + + + | 06/11/ | Office | [facility] | Offenstein, | Primary pulmonary | | 2013 | Visit | PULMONARY [address] | Vera Farrar MD | hypertension | | | | [address] [place], | | (Primary Dx); [place] | | | | [place] [address] | | (obstructive sleep | | | | [phone] | | apnea); COPD | | | [...] Date COPD (chronic obstructive pulmonary disease) ([facility]) moderate, FEV1 1.40 (59%) Pulmonary hypertension ([facility]) severe, class 1, class 2, [...] Years of Education: N/A Occupational History Disabled. [employer] Social History Main Topics Smoking status: Former Smoker -- 1.0 packs/day for 20 years Types: Cigarettes Quit date: 05/14/2013 Smokeless tobacco: None Alcohol Use: Yes Comment: history of abuse Drug Use: Yes Special: Cocaine Comment: history of cocaine use Sexually Active: None Other Topics Concern None Social History Narrative Lives at [email or web address]. Allergies: Allergies Allergen Reactions Erythromycin Metronidazole Penicillins [...] TABS Take 2,000 Units by mouth Daily. [place] Starch POWD by Does not apply route [...] tablet Take 15 mg by mouth Daily. [place]-3 Fatty Acids (SEA-OMEGA 30) 1200 MG CAPS [...] 327.23 1 each 0 [facility] Please contact Dr. Lainez's office if [...] doing well. We will check echocardiogram at [facility] appointment in 6 months. Continue higher [...] made to ensure accuracy; however, inadvertent computerized salesforce consultant errors may be pre sent. Electronically signed by: Vera Lainez MD 06/11/2014 8:55 documented in t his encounter Procedure Notes ONBASE SCAN THOR - 06/11/2014 12:00 AM PDTAssociated Order(s): IMAGING REPORT - EXTERNAL SC AN documented in this encount er Miscellaneous Notes Miscellaneous - ONBASE SCAN THOR - 06/11/2014 12:00 AM PDT [facility] - 04/09/2014 12:00 AM PDTElec tronically signed [...] Performed At | + + + | [facility] ECHOCARDIOGRAM REPORT | [place] | | STUDY DATE: 09/11/2014 PATIENT NAME: Margarita Rowley : | [facility] | | 1965 PCP: Gela Trimble DELI BAKERY CLERK | [facility] | | CLINICAL HISTORY/DIAGNOSIS: Pulmonary hypertension [...] | | | Ananth Salguero MD PhD [facility] 09/11/2014 10:45 | | | [employer]arc[employer] T[employer] Range Feeder: Hung Caro, JUANITOCS, RVT, RDMS | | + + + + + | Procedure Note | + + | Roberto Salguero MD - 09/12/2014 9:12 AM [facility] | | CENTERECHOCARDIOGRAM REPORTSTUDY DATE: 09/11/2014PATIENT NAME: Margarita MooreB: | | 1965MRN: [id number]: Gela Trimble, CRITICAL ACCESS HOSPITALLINICAL HISTORY/DIAGNOSIS: | [...] PP mmHgLA volume: 30 mLLA index: 16 mL/p6Qygvxw Inflow DT: 272 | | msIVRT: 110 msValsalva: Not neededPWDTI S wave: 7.2 cm/sPWDTI E wave: 8.0 cm/sPWDTI | | A wave: 10.4 cm/sE/A Ratio: 0.769E/E Ratio: 10.63Signed by: Artie Salguero MD | | PhD FACC 09/11/2014 10:45 [employer] Feeder: Hung Caro, RDCS, RVT, RDMS | |Tricuspid [...] 09/11/2014 10:45 | | | | | |[employer] Range Feeder: Hung Caro, JUANITOCS, RVT, RDMS | + + + + + + + | Performing | Address | City/State/Zipcode | Phone Number | | Organization | | | | + + + + + | [facility] | [address] | [place] | [phone] | | [facility] | | [address] | | | - IMAGING | | [...]
--- OUTSIDE RECORDS SUMMARY | ~2020-07-30 | XMS | Encounter Summary ---
Demographics + + + | Address | [address] | | | [place] [address] | + + + | Home Phone [...] + | [employer] | ECON | [phone] | | | | | Unknown | | + + + + + Care Team Providers + +------+ + | Care Machine Tool Dresser Name | Role | Phone | + [...] [address] | | | | | [address] [place], [place] | [place], [place] | | | | | [address] | [address] | | | | | [phone] | | | +--------+--------+ + + + [...]
--- OUTSIDE RECORDS SUMMARY | ~2020-07-30 | XMS | Encounter Summary ---
Demographics + + + | Address | [address] | | | [place] [address] | + + + | Home Phone [...] + | [employer] | ECON | [phone] | | | | | Unknown | | + + + + + Care Team Providers + +------+ + | Care Flatlock Sewing Machine Operator Name | Role | Phone [...] | | | | | (HCC) | [address] | AVE | | | | | Procedures | [place], | [place], [place] | | | | | ECHO | [place] [address] | [address] | | | | | Complete [place] | | Phone: | | | | | ECHO HEART | | [phone] | | | | | [employer] | | Fax: | | | | | [address] | | [phone] | | | | | [place] | | | | | | | [...] | | | Pulmonology | obstructive | TYPE CASTING MACHINE OPERATOR [address] | MD | | | | | pulmonary | [address] | | | | | | disease, | [place], | | | | | | unspecified | [place] [address] | | | | | | ([facility]) | Phone: | | | | | | Procedures | [phone] | | | | | | F/U | Fax: | | | | | | | [phone] | | +--------+--------+ + + + + Encounter Details +--------+---------+ + + + | Date | Type | Department | Care Team | Description | +--------+---------+ + + + | 04// | Office | [facility] | Offenstein, | Primary pulmonary | | 2016 | Visit | PULMONARY [address] | Vera Farrar MD | hypertension (HCC) | | | | [place], | | (Primary Dx); | | | | [place] [address] | | Chronic obstructive | | | | [phone] | | pulmonary disease, | | | [...] Date COPD (chronic obstructive pulmonary disease) ([facility]) moderate, FEV1 1.40 (59%) Pulmonary hypertension ([facility]) severe, class 1, class 2, class 3 Bipolar disorder ([facility]) PTSD (post-traumatic stress disorder) Osteoarthritis Obstructive sleep apnea AHI 64.2 Vitamin D deficiency GERD (gastroesophageal reflux disease) Hypothyroidism Seizure disorder ([facility]) Developmental delay Hypoxemia on 2L at rest, 4L with exertion Female stress incontinence Pyelonephritis Hypertension Impulse control disorder Hyperlipidemia Obesity Alcohol abuse Cocaine abuse Past Surgical History Past Surgical History Procedure Laterality Date Mouth surgery 2 teeth removed Cardiac catherization Social History: History Social History Marital Status: Single Spouse Name: N/A Number of Children: N/A Years of Education: N/A Occupational History Disabled. [employer] Social History Main Topics Smoking status: Former Smoker -- 1.00 packs/day for 20 years Types: Cigarettes Quit date: 12/15/2015 Smokeless tobacco: Never Used Alcohol Use: No Drug Use: No Sexual Activity: Not on file Other Topics Concern None Social History Narrative Lives at [employer]. Allergies: Allergies Allergen Reactions Erythromycin Other (See [...] TABS Take 2,000 Units by mouth Daily. [place] Starch POWD by Does not apply route [...] mg onto the skin every 24 hours. [place]-3 Fatty Acids (SEA-OMEGA 30) 1200 MG CAPS [...] appointment with Dr. Rivera. ECHO Complete * [facility] ([facility]) Pulmonary Function Testing - AMB Referral 2. [...] sooner with concerns. CC: VIKAS Galicia, Lashae Rivrea MD Portions of this report were transcribed using voice recognition software. Every effort wa s made to ensure accuracy; however, inadvertent computerized anchorer errors may be pre sent. documented in [...]
--- OUTSIDE RECORDS SUMMARY | ~2020-07-30 | XMS | Encounter Summary ---
Demographics + + + | Address | [address] | | | [place] [address] | + + + | Home Phone [...] + | Organization | [facility] | | | and [place] | + + + | Address | Unknown | + + + | Phone | Unavailable | + + + Support + + + + + | Name | Relationship | Address | Phone | + + + + + | [employer] | ECON | [phone] | | | | | Unknown | | + + + + + Care Team Providers + +------+ + | Care [place] Manager Name | Role | Phone | [...] | | | | | | | [place] [facility] | | | | | | [...] + | 05/22/ | Anesthesia | [facility] | Scout Lagunas, | | | 2019 | Event | MED CTR OR INTRA OP | MD [address] | | | | | [address] | [place] | | | | | [place] | [address] | | | | | [address] | | | | | | [phone] | | | +--------+ + + + [...] 05/22/20 1521 by | | ace | [id number] catheter system; | Martha Rosario, | Glory [...] EVALUATION Margarita Rowley 54 y.o. female 1965 [id number] Procedure(s) RIGHT EXTRACTION CATARACT W/ OR W/O [...] Scout Lagunas MD 05/22/2020 3:20 PM PDT [facility] signed by Scout Lagunas MD at 05/01 3:20 PM PDTAnesthesia Preprocedure Evaluation - Scout Lagunas MD - 05/22/2020 9: 25 AM PDT ANESTHESIA PREANESTHESIA EVALUATION Margarita Rowley 54 y.o. female 1965 [id number] Procedure(s): RIGHT EXTRACTION CATARACT W/ OR W/O LENS IMPLANT (Right Eye) Medical,anesthesia, drug, allergy histories reviewed, NPO status verified. Review of Systems / Med History Anesthesia History Emergently intubated in [place] 01/2020 -- videolaryngoscope used witho ut incident.. [...] NOTE Margarita Rowley 54 y.o. female 1965 [id number] RIGHT EXTRACTION CATARACT W/ OR W/O LENS [...] Scout Lagunas MD 05/22/2020 3:18 PM PDT [facility] signed by Scout Lagunas MD at 05/01 [...]
--- OUTSIDE RECORDS SUMMARY | ~2020-07-30 | XMS | Encounter Summary ---
Demographics + + + | Address | [address] | | | [place] [address] | + + + | Home Phone [...] | Organization | [facility] | | | and [place] | + + + | Address | Unknown | + + + | Phone | Unavailable | + + + Support + + + + + | Name | Relationship | Address | Phone | + + + + + | [employer] | ECON | [phone] | | | | | Unknown | | + + + + + Care Team Providers + +------+ + | Care Clinical Project Assistant Name | Role | Phone | [...] | Telephone | [facility] [place] | [facility], | Procedure | | 2015 | | GASTROENTEROLOGY | BRITTANY Maddox [address] | | | | | [address] | [address] | | | | | [address] [place], [place] | [place], [place] | | | | | [address] | [address] | | | | | [phone] | | | +--------+ + + + [...] P DTReceived letter from Dr. Rivera at [facility] indicating patient's nee d for a cardiac trained Anesthesiologist to deliver the IVCS (can not have prop) for egd/col on. She also noted that patient should not miss any of her doses of Adcirca or Letrairis. I will contact the associate project manager and anesthesia department to see how we can proceed. Johnie ically signed by Katheryn Garber RN at 07/27/2016 2:37 PM PDTTelephone Encounter - Missy Garber RN - 07/12/2016 2:12 PM PDTSpoke with MARANDA Hillman in Dr. Rivera's office at [facility] in [place]. They have been seeing the patient for [...] wait for letter then discuss case with associate project manager, Valeria Pete. Monica informed. Sirena ctronically signed by Katheryn Garber RN at 07/12/2016 2:22 PM PDTTelephone Encounter - Mirela Arthur - 07/09/2016 9:21 AM Magui Rivera's office at [facility] in [place] called and s aid that they are the patient's current pulmonary team, so the patient does not need to esta kimberly at [facility]. They would like to speak with Katheryn about possible future procedures for t he patient, colonoscopy and EGD. Please call their office back at [phone]. Electronical ly signed by Mirela Oliveros at 07/09/2016 9:25 AM PDTdocumented in this encounter Plan of Treatment Not on filedocumented as of this encounter Visit Diagnoses Not on filedocumented in this encounter"
--- OUTSIDE RECORDS SUMMARY | ~2020-07-30 | XMS | Encounter Summary ---
Demographics + + + | Address | [address] | | | [place] [address] | + + + | Home Phone [...] + + | Author | [facility] | | | and [place] | + + + | Organization | [facility] | | | and [place] | + + + | Address | Unknown | + + + | Phone | Unavailable | + + + Support + + + + + | Name | Relationship | Address | Phone | + + + + + | [employer] | ECON | [id number] | | | | | Unknown | | + + + + + Care Team Providers + +------+ + | Care Nurse Licensed Practical Name | Role | Phone | + [...] | Primary | Offenstein, | [address] | | | | | pulmonary | Vera B, | [place], | | | | | hypertension | MD [address] | [place] | | | | | ([facility]) | [address] | [address] | | | | | Procedures | CALEB ELLIS, | Phone: | | | | | ECHO | [place] [address] | [phone] | | | | | Complete [place] | | Fax: | | | | | ECHO HEART | | [phone] | | | | | XTHORACIC,[place] | | | | | | | MPLETE [address] | | | | | | | DOPPLER [place] | | | | | | | ECHO HEART | | | | | | | XTHORACIC,[place] | | | | | | | MPLETE, W/O | | | | | | | DOPPLER | | | +--------+--------+ + + + + Reason for Visit +--------+ + | Reason | Comments | +--------+ + | Cough | Primary pulmonary hypertension | +--------+ + Evaluate & Treat (Routine) [...] | Disease / | Chronic | Gela L, | Vera Farrar | | | | Pulmonology | airway | [facility] [address] | MD | | | | | obstruction, | IRMA | | | | | | not | [address] | | | | | | elsewhere | [place], | | | | | | classified | [place] [address] | | | | | | Procedures | Phone: | | | | | | F/U | [phone] | | | | | | | Fax: | | | | | | | [phone] | | +--------+--------+ + + + + Encounter Details +--------+---------+ + + + | Date | Type | Department | Care Team | Description | +--------+---------+ + + + | 03/12/ | Office | [facility] [place] | Fatou, | Primary pulmonary | | 2015 | Visit | PULMONARY [address] | Vera B, MD | hypertension; | | | | [address] [place], | | Exercise hypoxemia | | | | [place] [address] | | ([facility]); Sleep related | | | | [phone] | | hypoxemia; COPD | | | | | | (chronic obstructive | | | | | | pulmonary disease); | | | | | | GLORIA (obstructive | | | | | | sleep apnea); | | | | | | Tobacco use | | | | | | disorder; Need for | | | | | | 23-polyvalent | | | | | | pneumococcal | | | | | | polysaccharide | | | | | | vaccine | +--------+---------+ + + + Social History [...] + + +--------+ + + + | Tobacco Cessation: Ready to Quit: No; Counseling Given: Yes | | Comments: restarted in August 2014, quit [...] + | Blood Pressure | 110/62 | 03/12/2015 9:44 AM | | | | | PDT | | + + + + + | Pulse | 67 | 03/12/2015 9:44 AM | | | | | PDT | | + + + + + | Temperature | - | - | | + + + + + | Respiratory Rate | 14 | 03/12/2015 9:44 AM | | | | | PDT | | + + + + + | Oxygen Saturation | 90% | 03/12/2015 9:44 AM | room air | | | | PDT | | + + + + + | Inhaled Oxygen | - | - | | | Concentration | | | | + + + + + | Weight | 93.3 kg (205 lb 11.2 | 03/12/2015 9:44 AM | | | | oz) | PDT | | + + + + + | Height | 149.9 cm (4' 11.02") | 03/12/2015 9:44 AM | | | | | PDT | | + + + + + | Body Mass Index | 41.52 | 03/12/2015 9:44 AM | | | | | PDT | | + + + + + documented in this encounter Patient Instructions Patient Instructions Vera Lainez MD - 03/12/2015 10:09 AM PDTPlease check her ox ygen level when she is up walking around at work without her oxygen on. If she is going belo w 89%, she needs to be using her oxygen during this time. Okay to increase dietary sodium to 2 grams daily. Keep calories at 1500 calories per day and fluid at 2500 mL per day. Okay to have 2 free me als per month. Increase walking to 1200 feet daily, 6 days a week. Schedule echocardiogram preferably before trip to see Dr. Rivera. Have walking oxygen test with next visit. documented in this encounter Progress Notes Vera Lainez MD - 03/12/2015 9:40 AM PDTFormatting of this note might be differe nt from the original. Pulmonary Follow Up HPI Margarita Rowley is a 49 y.o. female patient here today for follow up of primary pulmonary hypertension. At their last visit, we had received her updated labs from her PCP, which looked okay. Her GFR was 58, and her platelets were 138. She has continued monthly labs, and she just had the m done. Since their last visit she feels like she has been doing great, except some neck pa in in her shoulder blade area, which she wonders if this is from carrying her oxygen tank. S he has not had any acute illnesses. She notes she has an appointment scheduled to see Dr. Rivera in April 09. She is currently on a regimen of Letairis 10mg daily. She is also taking furosemide 80mg tw ice daily. She does feel like this medication regimen is working for them. She has not not iced any leg swelling, paroxysmal nocturnal dyspnea, or orthopnea. She does sleep elevated o n a hospital bed due to fear of lying flat. She returns today for routine follow up. For her COPD, she is on the Qvar 80 mcg 1 puff inhaled twice daily. She has not been using the Ventolin inhaler. Currently she is able to walk 800 feet or further at her own pace on level ground. She note s she walks quite a bit, but she walks mostly with the 800 feet that she is required to do a s part of her regimen. She does not get short of breath doing this. She is exercising regul kimi. She does cough chronically, which she attributes to having relapsed on smoking, and does p roduce mucous. The mucous is green in color. She did have one drop of blood in a glob of muc ous. She has been evaluated for nocturnal oxygen and does use it. She is currently on 4 LPM at n ight. She is also on her BiPAP machine, and is using that every night without issues. She reports good compliance. She has been evaluated for daytime oxygen and does use it. She is c urrently on 4 LPM with exertion only. She does not use her oxygen when she walks around at w ork. Off the oxygen she runs 90-94%. According to their scale, this month she is down 4 pounds from last month (201 in compariso n to 205). Our scale has her at 205 compared to 203 3 months ago. She is on a 2500 mL fluid restriction, and on a 2000 calorie a day restriction with 2 free meals a month. Past Medical History Past Medical History [...] Years of Education: N/A Occupational History Disabled. [employer] Social History Main Topics Smoking status: Former Smoker -- 1.00 packs/day for 20 years Types: Cigarettes Quit date: 12/10/2014 Smokeless tobacco: None Comment: restarted in August 2014, quit again 12/10/14 Alcohol Use: Yes Comment: history of abuse Drug Use: Yes Special: Cocaine Comment: history of cocaine use Sexual Activity: None Other Topics Concern None Social History Narrative Lives at [employer]. Allergies: Allergies Allergen Reactions Erythromycin Metronidazole Penicillins Sulfa Antibiotics Medications: Outpatient Encounter Prescriptions as of 03/12/2015 Medication Sig Dispense Refill acetaminophen (MAPAP) 325 [...] TABS Take 2,000 Units by mouth Daily. [place] Starch POWD by Does not apply route [...] mg onto the skin every 24 hours. Morley-3 Fatty Acids (SEA-OMEGA 30) 1200 MG CAPS [...] facility-administered encounter medications on file as of 03/12/2015. Review of Systems: General: []Weight loss/gain (over 10 lbs) []Fever/chills/sweats []Night sweats EENT: []Hearing loss [x]Vision loss/change []Sinus congestion/nasal drainage []Nosebleeds [ ]Hoarseness Cardiac: []Chest pain [x]Palpitations/heart racing []Swelling of legs/ankles []Waking up at night short of breath [x]Difficulty sleeping flat Gastrointestinal: []Nausea/vomiting []Difficulty swallowing []Heartburn/acid reflux []Loss of appetite []Abd ominal pain Urologic: []Blood in urine []Frequent urination at night []Burning/painful urination []Difficulty wit h urination Objective BP 110/62 | Pulse 67 | Resp 14 | Ht 1.499 m (4' 11.02") | Wt 93.305 kg (205 lb 11.2 oz) | B SD 41.52 kg/m2 | SpO2 90% RA General Appearance: Alert, cooperative, no distress, [...] are diminished bilaterally, no wheezes, aircraft engine mechanic supervisor ckles or rhonchi Chest Wall: No deformity Heart: Regular rate and rhythm, no murmur, rub or gallop Abdomen: Soft, non-tender, non-distended, obese Extremities: No cyanosis, clubbing, or edema Pulses: Radial pulses 2+ and symmetric Skin: Warm and dry Lymph nodes: Cervical and supraclavicular nodes normal Data: Ref. Range 10/07/2014 13:29 WBC, External Latest Range: 4.5-11 6.0 RBC, External Latest Range: 3.8-5.1 3.95 HGB, External Latest Range: 12-16 12.1 HCT, External Latest Range: 35-45 37.4 MCV, External Latest Range: 81-99 94 RDW, External Latest Range: 10.5-15 12.9 PLT, External Latest Range: 140-440 138 (A) Neutrophils %, External Latest Range: 39-80 62.6 Lymphocytes %, External Latest Range: 24-44 22.4 (A) Monocytes %, External Latest Range: 0-12 12.1 (A) Eosinophils %, External Latest Range: 0-6 1.7 PT, External No range found 13.4 INR, External No range found 1.0 PTT, External Latest Range: 22.9-41.3 31.1 Sodium, External Latest Range: 132-143 137 Potassium, External Latest Range: 3.6-5.1 3.8 Carbon Dioxide, External Latest Range: 19-31 26 Chloride, External Latest Range: 95-112 103 Glucose, External Latest Range: 70-100 93 BUN, External Latest Range: 6-23 23 Creatinine, External Latest Range: 0.7-1.33 1.01 Albumin, External Latest Range: 3.5-5 3.7 Calcium, External Latest Range: 8.4-10.2 9.0 Magnesium, External Latest Range: 1.7-2.5 2.2 ALP, External Latest Range: 30-128 61 ALT, External Latest Range: 7-52 14 AST, External Latest Range: 13-39 15 Bilirubin, Total, External Latest Range: 0-1.2 0.3 Protein, Total, External Latest Range: 6-83 6.6 B-Type Naturetic Peptide, External Latest Range: 0-100 6 eGFR, External Latest Range: 60-176145 58 (A) Immunization History Administered Date(s) Administered INFLUENZA, TRIVALENT PRESERVATIVE FREE (PED/ADOL/ADULT) 07/31/2013, 08/11/2014 Assessment ICD-9-CM 1. Primary pulmonary hypertension 416.0 Symptomatically improved, and last echocardigram al so showed good improvement. We will repeat her echocardiogram as it has been 6 months. She h as also made her follow up appointment with Dr. Rivera. For now we will continue her regimen of Letairis and furosemide. Ambulating oximetry- Clinic ECHO Complete 2. Exercise hypoxemia (HCC) 799.02 She has not been using her oxygen when at work and walki ng. I asked them to check her saturation during these times and require her to wear her oxyg en if less than 89%. In addition, we will order and perform an ambulating oximetry at next v isit. Ambulating oximetry- Clinic 3. Sleep related hypoxemia 327.26 On oxygen at night bled in to her BiPAP machine. 4. COPD (chronic obstructive pulmonary disease) 496 On Qvar with good symptoms control and no additional need for albuterol. 5. GLORIA (obstructive sleep apnea) 327.23 On BiPAP and using nightly with good control. Follo wing with the sleep center. 6. Tobacco use disorder 305.1 Ongoing. She had quit, but has resumed again. She continues t o make efforts to quit. 7. Need for 23-polyvalent pneumococcal polysaccharide vaccine V03.82 Pneumococcal 23-valent Polysaccharide Vaccine greater than or equal to 2yo subc Plan 1. Check oxygen level when she is up walking around at work without her oxygen on. If she i s going below 89%, she needs to be using her oxygen during this time. 2. Okay to increase di etary sodium to 2 grams daily. 2. Keep calories at 1500 calories per day and fluid at 2500 mL per day. Okay to have 2 free meals per month. 3. Increase walking to 1200 feet daily, 6 days a week. 4. Repeat echocardiogram preferably before appointment with Dr. Rivera. 5. Repeat ambulating oximetry at next appointment. 6. Continue on Letairis and furosemide 80mg twice daily. 7. Continue BiPAP for life. 8. Continue oxygen 4L bleed in to BiPAP and 4L with exertion. She was advised to call if new pulmonary symptoms were to develop. Return to clinic in 3 months, or sooner with concerns. CC: Yuni Shrestha NP, Lashae Rivera MD Portions of this report were transcribed using voice recognition software. Every effort wa s made to ensure accuracy; however, inadvertent computerized caterers helper errors may be pre sent. documented in t his encounter Plan of Treatment Not on filedocumented as of this encounter Results ECHO Complete (03/26/2015 1:40 [...] Performed At | + + + | [facility] ECHOCARDIOGRAM REPORT | OLIV[place] | | STUDY DATE: 03/26/2015 PATIENT NAME: Margarita Rowley : | [facility] | | 1965 PCP: Physician Elisabeth CLINICAL [...] Signed by: Derick Strong, | | | [facility] 03/26/2015 13:52 Guest Relation Officer: Maciel Silva, | | | RDCS, RDMS, RVT | | + + + + + + + + | Performing | Address | City/State/Zipcode | Phone Number | | Organization | | | | + + + + + | [facility] | [address] | [place], [place] | [phone] | | [facility] | | [address] | | | - IMAGING | | | | + + + + + documented in this encounter Visit Diagnoses + + | Diagnosis | + + | Primary pulmonary hypertension | + + | Exercise hypoxemia (HCC) Hypoxemia | + + | Sleep related hypoxemia Sleep related hypoventilation/hypoxemia in conditions | | classifiable elsewhere | + + | COPD (chronic obstructive pulmonary disease) Chronic airway obstruction, not | | elsewhere classified | + + | GLORIA (obstructive sleep apnea) Obstructive sleep apnea (adult) (pediatric) | + + | Tobacco use disorder | + + | Need for 23-polyvalent pneumococcal polysaccharide vaccine | + + documented in this encounter
--- OUTSIDE RECORDS SUMMARY | ~2020-07-30 | XMS | Encounter Summary ---
Demographics + + + | Address | [address] | | | [place] [address] | + + + | Home Phone | | + + + | Preferred Language | Unknown | + + + | Marital Status | Single | + + + | Moravian Affiliation | NRP | + + + | Race | White | + + + | Ethnic Group | Not or | + + + Author + + + | Author | [facility] | + + + | Organization | [facility] | + + + | Address | Unknown | + + + | Phone | Unavailable | + + + Support + + +---------+ + | Name | Relationship | Address | Phone | + + +---------+ + | Lidia Thibodeaux | ECON | Unknown | | + + +---------+ + Care Team Providers + +------+ + | Care Front Counter Attendant Name | Role | Phone | + [...] | | | | Melanocytic | Yuni, POWDER MIXER | Marivel C, | | | | | nevi, | [facility] | ,PhD 1936 | | | | | unspecified | Terence | [place] | | | | | | Family Care | [place], | | | | | | [address] | [place] [address] | | | | | | [place] | Phone: | | | | | | [place], | [phone] | | | | | | [place] [address] | Fax: | | | | | | Phone: | [phone] | | | | | | [phone] | | | | | | | Fax: | | | | | | | [phone] | | +--------+--------+ + + + + Encounter Details +--------+---------+ + + + | Date | Type | Department | Care Team | Description | +--------+---------+ + + + | 07/19/ | Office | Dermatology at | Marivel Rao, | Nevus (Primary Dx) | | 2015 | Visit | [place] | ,PhD 1936 | | | | | Clinic [address] [place], [place] | | | | | [place], [place] | [address] | | | | | [address] | [phone] | | | | | [phone] | | | +--------+---------+ + + + [...] in this encounter Patient Instructions Patient Instructions Kenya Almendarez MA - 07/19/2016 11:32 AM PDTSUNSCREEN APPLICATION AND UV PROTECTION ? Exposure to ultraviolet radiation is the leading cause of premature aging, and skin cance rs including melanoma. ? The [employer] (AAD) recommends you wear [...] information is available at the following websites: [email or web address] - [facility] Derm atology [email or web address]://[email or web address].[email or web address]/public/sun/smart.[email or web address] - AAD Website [...] cancer. 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 Vega skin type II. She does occasionally use sunscreens and protective clothing, an d does not examine her skin regularly. The patient's dermatology intake form was reviewed, signed, and dated. Her relevant PMH, F H, and SH includes: PAST MEDICAL HISTORY: No past medical [...] fail to improve. Marivel Rao M.D. Ph.D. [employer] Department of Dermatology [facility] ([facility]) Dermatology documented in th is encounter Plan of Treatment Not on filedocumented as of this encounter Visit Diagnoses + + | Diagnosis | + + | Nevus - Primary Benign neoplasm of skin, site unspecified | + + documented in this encounter
--- OUTSIDE RECORDS SUMMARY | ~2020-07-30 | XMS | Encounter Summary ---
Demographics + + + | Address | [address] | | | [place] [address] | + + + | Home Phone | | + + + | Preferred Language | Unknown | + + + | Marital Status | Single | + + + | Buddhism Affiliation | [id number] | + + + [...] + | [employer] | ECON | [id number] | | | | | Unknown | | + + + + + Care Team Providers + +------+ + | Care Service Delivery Management Consultant Name | Role | Phone | + +------+ + | Yuni Shrestha | PCP | | + +------+ + Reason for Visit + + + | Reason | Comments | + + + | Dysphagia | | + + + Evaluate & [...] | | | | | pharyngeal | INSTRUMENTATION SPECIALIST [address] | INSTRUMENTATION SPECIALIST [address] | | | | | phase | [address] | [address] | | | | | Procedures | [place], | [address] | | | | | Office Visit | [place] [address] | [place], | | | | | | Phone: | [place] [address] | | | | | | [phone] | Phone: | | | | | | Fax: | [phone] | | | | | | [phone] | Fax: | | | | | | | [phone] | +--------+--------+ + + + + Encounter Details +--------+---------+ + + + | Date | Type | Department | Care Team | Description | +--------+---------+ + + + | 03/07/ | Office | [facility] [place] | [place], | Dysphagia, | | 2016 | Visit | GASTROENTEROLOGY | BRITTANY Maddox [address] | unspecified | | | | [address] [place] | [address] | dysphagia (Primary | | | | [address] [place], [place] | [place], [place] | Dx); Chronic | | | | [address] | [address] | obstructive | | | | [phone] | | pulmonary disease, | | | | | | unspecified COPD | | | | | | type (HCC); | | | | | | Developmental delay; | | | | | | GLORIA (obstructive | | | | | | sleep apnea); | | | | | | Seizure disorder | | | | | | ([facility]) | +--------+---------+ + + + Social History [...] + + + | Blood Pressure | 100/64 | 01/05/2016 11:21 AM | | | | | PST | | + + + + + | Pulse | 98 | 01/05/2016 11:21 AM | | | | | PST | | + + + + + | Temperature | 37.2 C (98.9 F) | 01/05/2016 11:21 AM | | | | | PST | | + + + + + | Respiratory Rate | 16 | 01/05/2016 11:21 AM | | | | | PST | | + + + + + | Oxygen Saturation | 99% | 01/05/2016 11:21 AM | | | | | PST | | + + + + + | Inhaled Oxygen | - | - | | | Concentration | | | | + + + + + | Weight | 93 kg (205 lb) | 01/05/2016 11:21 AM | | | | | PST | | + + + + + | Height | - | - | | + + + + + | Body Mass Index | 41.4 | 11/07/2015 2:43 PM | | | | | PST | | + + + + + documented in this encounter Progress Notes Varsha Rich ARNP - 01/05/2016 11:59 AM PSTFormatting of this note might be differe nt from the original. Margarita Rowley is a 50 y.o. female referred by VIKAS Galicia for evaluation and tr eatment of dysphgia History of present illness: Patient notes that after taking a large bite of her sandwich and when she was chewing, a pi hari of bread got caught in her throat and she began choking. The other time she was eating a n apple. This has happened 2 times over the last year. Denies heartburn or black stools. She does take omeprazole for known history of GERD. Does have history of seasonal allergies. Patient has a complex medical history which includes developmental delay, PTSD, bipolar dis order, obstructive sleep apnea, impulse control disorder, obesity with BMI over 40, and COPD requiring oxygen. Allergies Allergen Reactions Erythromycin Other (See Comments) Metronidazole Other (See Comments) Penicillins Other (See Comments) Sulfa Antibiotics Other (See Comments) Past Medical History Diagnosis Date COPD (chronic obstructive pulmonary disease) ([facility]) moderate, FEV1 1.40 (59%) Pulmonary [...] surgery 2 teeth removed Cardiac catherization Family History Problem Relation Age of Onset Tobacco Use Brother Alcohol abuse Brother Drug abuse Brother Mental illness Brother Tobacco Use Brother Alcohol abuse Brother Drug abuse Brother Mental illness Brother Tobacco Use Brother Alcohol abuse Brother Drug abuse Brother Tobacco Use Brother Alcohol abuse Brother Drug abuse Brother Tobacco Use Brother Alcohol abuse Brother Drug abuse Brother History Social History Marital Status: Single Spouse Name: N/A Number of Children: N/A Years of Education: N/A Occupational History Disabled. [employer] Social History Main Topics Smoking status: Former Smoker -- 1.00 packs/day for 20 years Types: Cigarettes Quit date: 12/15/2015 Smokeless tobacco: Never Used Comment: Smoking a cigarette every 2 hours Alcohol Use: No Drug Use: No Sexual Activity: Not on file Other Topics Concern Not on file Social History Narrative Lives at [employer]. Review of systems: Constitutional:Denies any fevers, chills, or unintentional weight loss. Eyes:Denies using glaucoma eye drops. Denies dry, burning, painful eyes Respiratory:Complains of shortness of breath. Gastrointestinal:Complains of dysphagia. Denies constipation, diarrhea, bloody or black sto ols, hematemesis, nausea or vomiting, hemorrhoids, heartburn, or abdominal pain. Skin: Denies rashes Neurological:Denies memory difficulties, numbness or tingling, muscle weakness, paralysis o f arms or legs, epilepsy or seizure, or frequent bothersome and headaches ENT:Denies hearing loss, hearing aids, hearing ringing or buzzing in ears, constantly runny nose, nasal obstruction, hayfever, dentures, or hoarseness. Cardiovascular:Complains of chest pain. Denies heart palpitations or bothersome ankle swell ing. :Complains of urine incontinence. Denies painful urination, waking up on average more jaye n once per night to urinate, bloody urine, or impotence Musculoskeletal:Denies swollen joints, painful back, or painful joints. Psychiatric:Complains of depression and anxiety. Endocrine:Denies enlarged thyroid. Heme/lymph:Denies anemia or enlarged lymph glands. Physical exam: General: well developed, well nourished, in no acute distress. Head: normocephalic and atraumatic Eyes: Sclera clear Mouth: MMM Lungs: Clear to auscultate bilaterally and throughout Heart: regular rate and rhythm Abdomen: Soft, non tender, non distended, bowel tones positive times 4 quadrants, negative Grzegorz y's sign, negative rebound tenderness, no guarding, no hepatosplenomegaly palpated. Msk: symmetrical with no deformity, with normal posture and gait, normal strength. Extremities: no clubbing, cyanosis, edema, or deformity noted Neurologic: no focal deficits, cranial nerves II-XII grossly intact Skin: intact without lesions or rashes. Psych: alert and cooperative; normal mood and affect; normal attention span and concentration. Abstract on 01/02/2016 Component Date Value Ref Range Status POC Test, Urine 11/13/2015 Negative Negative Final Orders Only on 11/07/2015 Component Date Value Ref Range Status WBC 11/07/2015 5.6 4.0-11.0 K/uL Final RBC 11/07/2015 4.10 3.70-5.20 M/uL Final Hgb 11/07/2015 12.6 11.5-16.0 g/dL Final Hct 11/07/2015 38.5 34.0-47.0 % Final MCV 11/07/2015 93.9 83.0-101.0 fL Final MCH 11/07/2015 30.7 28.0-35.0 pg Final MCHC 11/07/2015 32.7 32.0-36.0 g/dL Final RDW-CV 11/07/2015 14.0 <15.0 % Final Platelet Count 11/07/2015 162 140-440 K/uL Final MPV 11/07/2015 9.1 Final % Neutrophils 11/07/2015 62.4 45.0-82.0 % Final % Lymphocytes 11/07/2015 26.0 20.0-45.0 % Final % Monocytes 11/07/2015 8.8 4.0-12.0 % Final % Eosinophils 11/07/2015 2.3 0.0-5.0 % Final % Basophils 11/07/2015 0.5 0.0-1.0 % Final Absolute Neutrophils 11/07/2015 3.50 1.80-8.50 K/uL Final Absolute Lymphocytes 11/07/2015 1.40 0.60-3.20 K/uL Final Absolute Monocytes 11/07/2015 0.50 0.00-1.00 K/uL Final Absolute Eosinophils 11/07/2015 0.10 0.00-0.40 K/uL Final Absolute Basophils 11/07/2015 0.00 0.00-0.10 K/uL Final NA 11/07/2015 138 136-149 mmol/L Final K 11/07/2015 4.3 3.5-5.1 mmol/L Final CL 11/07/2015 102 98-109 mmol/L Final CO2 11/07/2015 28 24-31 mmol/L Final ANION GAP 11/07/2015 8 3-16 mmol/L Final GLUCOSE 11/07/2015 91 70-109 mg/dL Final BUN 11/07/2015 15 7-18 mg/dL Final Creatinine, Serum/Plasma 11/07/2015 1.02 0.60-1.30 mg/dL Final eGFR if not 11/07/2015 57* >=60 mL/min/1.73m2 Final GLOMERULAR FILTRATION RATE,ESTIMATED mL/min/1.73m2 Less than 60 Chronic kidney disease,if found over a 3-month period. Less than 15 Kidney failure For Americans,multiply the calculated GFR by 1.21. CALCIUM 11/07/2015 9.6 8.3-10.5 mg/dL Final ALBUMIN 11/07/2015 4.0 3.2-5.0 g/dL Final BILIRUBIN TOTAL 11/07/2015 0.4 0.1-1.5 mg/dL Final Total protein 11/07/2015 7.1 6.0-7.8 g/dL Final AST 11/07/2015 18 10-42 U/L Final ALT 11/07/2015 13 6-45 U/L Final ALK PHOS 11/07/2015 61 40-110 U/L Final GLOBULIN 11/07/2015 3.1 Final Albumin/Globulin ratio 11/07/2015 1.3 Final BUN/CREA 11/07/2015 14.7 Final Assessment: 1. Dysphagia, unspecified dysphagia FL Video Swallow w Speech FL UGI 2. Chronic obstructive pulmonary disease, unspecified COPD type (HCC) 3. Developmental delay 4. GLORIA (obstructive sleep apnea) 5. Seizure disorder (HCC) Plan: Due to very infrequent episodes of dysphagia, with start with UGI with swallow evaluation t o help determine if EGD necessary. Because of he multiple chronic health issues, especially related to breathing, she is a hig her risk for complications of sedation. Continue with omeprazole as prescribed. Discussed that if PPI is used alf, Calcium an d Vitamin D should be initiated. Routine DEXA scans should also be completed as recommended by PCP to screen for osteoporosis. Will follow up with results. Patient is to call with any question or concerns. Any fevers, chills, chest pain, SOB or other serious symptoms patient is to call the office or go to ER . Cc: VIKAS Galicia This note was dictated using voice recognition software. Please contact me if there are an y questions regarding its content. Electronically signed by BRITTANY Huerta at 12/30 5:07 PM PDTdocumented in this encounter Plan of Treatment + +---------+--------+ + + | Name | Type | Priori | Associated Diagnoses | Order Schedule | | | | ty | | | + +---------+--------+ + + | FL Video Swallow w | Imaging | Routin | Dysphagia | Expected: | | Speech | | e | | 01/05/2016, Expires: | | | | | | 05/04/2016 | + +---------+--------+ + + | FL UGI | Imaging | Routin | Dysphagia | Expected: | | | | e | | 01/05/2016, Expires: | | | | | | 05/04/2016 | + +---------+--------+ + + documented as of this encounter Visit Diagnoses + + | Diagnosis | + + | Dysphagia, unspecified dysphagia - Primary | + + | Chronic obstructive pulmonary disease, unspecified COPD type (HCC) | + + | Developmental delay Unspecified delay in development | + + | GLORIA (obstructive sleep apnea) Obstructive sleep apnea (adult) (pediatric) | + + | Seizure disorder (HCC) Unspecified epilepsy without mention of intractable epilepsy | + + documented in this encounter"
--- OUTSIDE RECORDS SUMMARY | ~2020-07-30 | XMS | Encounter Summary ---
Demographics + + + | Address | [address] | | | [place] [address] | + + + | Home Phone [...] + | [employer] | ECON | [id number] | | | | | Unknown | | + + + + + Care Team Providers + +------+ + | Care Senior Test Analyst Name | Role | Phone | + +------+ + | Gela Trimble NP | PCP | | + +------+ + Encounter Details +--------+ + + + + | Date | Type | Department | Care Team | Description | +--------+ + + + + | 08/27/ | Hospital | [facility] | [place], | Primary pulmonary | | 2012 | Encounter | [facility] | Vera Farrar MD | hypertension (HCC) | | | | [address] | | | | | | [place] | | | | | | [address] | | | | | | [phone] | | | +--------+ + + + [...] by mouth | | 0 | | 04/05/201 | | (WELLBUTRIN) 100 mg | 2 [...] + + + +---------+ + + | [place] [employer] POWD | by Does not apply [...] + + + +---------+ + + | [place]-3 Fatty | Take by mouth. | | [...] patient know their lab result is normal. ennifer Lainez MD - 08/27/2013 12:39 PM PDT Quick [...] 85 | 70 - 109 mg/dL | [facility] | | | | [facility] | | | [facility] | [facility] - | | | | | | LABORATORY | | + + + + + + | Calcium | 8.8 | 8.3 - 10.5 | [facility] | | | | | mg/dL | [facility] | [facility] | | | | | | [facility] - | | | | | | LABORATORY | | + + + + + + | Alkaline | 60 | 40 - 110 IU/L | [facility] | | | Phosphatase | | | [facility] | | [...] (H) | 7 - 18 mg/dL | [facility] | | | | | | [facility] | [facility] | [facility] | | | | | | [facility] - | | | | | | LABORATORY | | + + + + + + | Creatinine | 1.06 | 0.60 - 1.30 | [facility] | | | | | mg/dL | [facility] | [facility] | [facility] | | | | [facility] - | | | | | | LABORATORY | | + + + + + + | Estimated | 55 (L)Comment: For | >60 mL/min/A | [facility] | | | GFR | -Americans, | [...] | 13.0 | 6.0 - 17.0 | [facility] | | | | | [...] + | [facility] | [address] | [place] | [phone] | | [facility] | | [address] | | | - LABORATORY | | | | + + + + + | [facility] | [address] | [place] | | | [facility] | | [id number] [place] [address] | | | - LABORATORY | | | | + + + + + CBC no Differential (08/27/2013 12:12 PM PDT) + + + + + + | Component | Value | Ref Range | Performed | Pathologist | | | | | At | Signature | + + + + + + | White Blood | 6.1 | 4.0 - 11.0 K/uL | [facility] | | | Cells | | | [facility] | | | | | [facility] | | | | | | [facility] - | | | | | | LABORATORY | | + + + + + + | Red Blood | 4.43 | 3.70 - 5.20 | [facility] | | | Cells | | M/uL | [facility] | | | | | [facility]ICAL | | | | | | CENTER - | | | | | | LABORATORY | | + + + + + + | Hemoglobin | 15.0 | 11.5 - 16.0 | [facility] | | | | | gm/dL | [facility] | | | | | | [...] + | [facility] | [address] | [place] | [phone] | | [facility] | | [address] | | | - LABORATORY | | | | + + + + + | [facility] | [address] | [place], [place] | | | [facility] | | [id number] | | | - LABORATORY | | | | + + + + + documented in this encounter Visit Diagnoses + + | Diagnosis | + + | Primary pulmonary hypertension (HCC) Primary pulmonary hypertension | + + documented in this encounter"
--- OUTSIDE RECORDS SUMMARY | ~2020-07-30 | XMS | Encounter Summary ---
Demographics + + + | Address | [address] | | | [place] [address] | + + + | Home Phone [...] + | [employer] | ECON | [id number] | | | | | Unknown | | + + + + + Care Team Providers + +------+ + | Care Malt Liquors Sales Supervisor Name | Role | Phone | [...] + + | 10/16/ | Office | [facility] | Jacky Caldreon PA | Primary central | | 2012 | Visit | SLEEP DISORDER [address] | [address] | sleep apnea (Primary | | | | [address] [place] | [place] | Dx) | | | | [place] [address] | [address] | | | | | [phone] | | | +--------+---------+ + + + [...] Quattro FX full face mask obtained from: [facility] pressure: 18/14 cm Nights using BiPAP: 20/21 [...] was not set according to Dr. González greber's recommendation of IPAP 19 cm, EPAP 5 cm and a backup of 8 bpm with 2 L/min O2 bled into the system. Her pressure is 18/14 cm with O2 at 2 L/min. The prescription sent to [facility] in [place] by Dr. Lainez had the correct pressures. [facility] in [facility] will make the adjustment to Jessie's [...] talked with [facility] in [facility] having her pressures corrected to IPAP 19 cm, EPAP 5 cm and a backup of 8 bpm with 2 L/mi n O2 bled into the system. I will follow up again in 1 month, sooner prn. Fifteen minutes were spent [id number], wi th the majority of time spent in counseling. Jacky Calderon PA-C cc: BRUCE Beal MD documented in this enco unter Plan of Treatment Not on filedocumented as of this encounter Visit Diagnoses + + | Diagnosis | + + | Primary central sleep apnea - Primary | + + documented in this encounter"
--- OUTSIDE RECORDS SUMMARY | ~2020-07-30 | XMS | Encounter Summary ---
Demographics + + + | Address | [address] | | | [place] [address] | + + + | Home Phone [...] Author + + + | Author | [facility] | + + + | Organization | [facility] | + + + | Address | Unknown | + + + | Phone | Unavailable | + + + Support + + +---------+ + | Name | Relationship | Address | Phone | + + +---------+ + | Lidia Thibodeaux | ECON | Unknown | | + + +---------+ + Care Team Providers + +------+ + | Care Tallow Pumper Name | Role | Phone | + [...] | | | | | n | [facility] | | | | | | [place] [address] | | | | | | [phone] | | | +--------+ + + + [...]
--- OUTSIDE RECORDS SUMMARY | ~2020-07-30 | XMS | Encounter Summary ---
Demographics + + + | Address | [address] | | | [place] [address] | + + + | Home Phone [...] Organization | [facility] | | | and [place] | + + + | Address | Unknown | + + + | Phone | Unavailable | + + + Support + + + + + | Name | Relationship | Address | Phone | + + + + + | [employer] | ECON | [id number] | | | | | Unknown | | + + + + + Care Team Providers + +------+ + | Care Supervisor Sawmill Name | Role | Phone | + [...] + | 07/09/ | Telephone | [facility] | Roberto Salguero | Other (Appointment | | 2012 | | [address] | MD Ananth [address] | Cancellation) | | | | [place], | [address] [place] | | | | | [place] [address] | [place] [address] | | | | | [phone] | [phone] | | | | | | | [...]
--- OUTSIDE RECORDS SUMMARY | ~2020-07-30 | XMS | Encounter Summary ---
Demographics + + + | Address | [address] | | | [place] [address] | + + + | Home Phone [...] + | [employer] | ECON | [id number] | | | | | Unknown | | + + + + + Care Team Providers + +------+ + | Care Machine Bander And Cellophaner Helper Name | Role | Phone | [...] | pulmonary heart | | | | [place], | | diseases (HCC) | | | | [place] [id number] | | (Primary Dx); | | | | [phone] | | Chronic airway | | | | | | obstruction, not | | | | | | elsewhere classified | | | | | | (HCC) | +--------+ + + + + Social [...] 06/15/2013 | | | | | diseases ([facility]) | until 06/15/2014 | | | | | Chronic airway | | | | | | obstruction, not | | | | | | elsewhere classified | | | | | | ([facility]) | | + + +--------+ + + documented as of this encounter Visit Diagnoses + + | Diagnosis | + + | Other chronic pulmonary heart diseases - Primary | + + | Chronic airway obstruction, not elsewhere classified | + + documented in this encounter"
--- OUTSIDE RECORDS SUMMARY | ~2020-07-30 | XMS | Encounter Summary ---
Demographics + + + | Address | [address] | | | [place] [address] | + + + | Home Phone [...] + | [employer] | ECON | [id number] | | | | | Unknown | | + + + + + Care Team Providers + +------+ + | Care Demolition Expert Name | Role | Phone | [...] Farrar MD | | | | | [place], | | | | | | [place] [address] | | | | | | [phone] | | | +--------+ + + + [...] ER. Margarita is going to ER at [facility] in [place] for an irregular heart rate and O2 sats dropping to 60-70% on O2 at 2 l/m. documented in this e ncounter Plan of Treatment Not on filedocumented as of this encounter Visit Diagnoses Not on filedocumented in this encounter"
--- OUTSIDE RECORDS SUMMARY | ~2020-07-30 | XMS | Encounter Summary ---
Demographics + + + | Address | [address] | | | [place] [address] | + + + | Home Phone [...] + | [employer] | ECON | [id number] | | | | | Unknown | | + + + + + Care Team Providers + +------+ + | Care Master Coastwise Yacht Name | Role | Phone | + +------+ + | Gela Trimble NP | PCP | | + +------+ + Reason for Visit + +--------+ + | Reason | Onset | Comments | | | Date | | + +--------+ + | Medication Refill | 11/13/ | | | | 2015 | | + +--------+ + Encounter Details +--------+--------+ + + + | Date | Type | Department | Care Team | Description | +--------+--------+ + + + | 11/13/ | Refill | [facility] [place] | [place], | Medication Refill | | 2014 | | PULMONARY [address] | Vera Farrar MD | | | | | [place], | | | | | | [place] [address] | | | | | | [phone] | | | +--------+--------+ + + + [...] Telephone Encounter - Alysa Shrestha RN - 11/13/2014 10:11 AM PSTLast refill:08/15/14. Number given 1, Refills given 11 Last office visit: 09/11/14 Next office visit: 12/11/14 documented in this encounter Plan of Treatment Not on filedocumented as of this encounter Visit Diagnoses + + | Diagnosis | + + | COPD (chronic obstructive pulmonary disease) (HCC) - Primary Chronic airway | | obstruction, not elsewhere classified | + + | Chronic airway obstruction, not elsewhere classified | + + documented in this encounter"
--- OUTSIDE RECORDS SUMMARY | ~2020-07-30 | XMS | Encounter Summary ---
Demographics + + + | Address | [address] | | | [place] [address] | + + + | Home Phone [...] + | [employer] | ECON | [id number] | | | | | Unknown | | + + + + + Care Team Providers + +------+ + | Care Linux Network Systems Administrator Name | Role | Phone | + +------+ + | Gela rTimble NP | PCP | | + +------+ [...] + + | 08/13/ | Telephone | [facility] | Tarah Nino, | Other (BIPAP order) | | 2012 | | PULMONARY [address] | RN | | | | | [place], | | | | | | [place] [address] | | | | | | [phone] | | | +--------+ + + + [...]
--- OUTSIDE RECORDS SUMMARY | ~2020-07-30 | XMS | Encounter Summary ---
Demographics + + + | Address | [address] | | | [place] [address] | + + + | Home Phone [...] + + | Author | [facility] | | | and [place] | + + + | Organization | [facility] | | | and [place] | + + + | Address | Unknown | + + + | Phone | Unavailable | + + + Support + + + + + | Name | Relationship | Address | Phone | + + + + + | [employer] | ECON | [id number] | | | | | Unknown | | + + + + + Care Team Providers + +------+ + | Care Clinical Pharmacy Manager Name | Role | Phone | + +------+ + | Yuni Shrestha | PCP | | + +------+ + Reason for Visit + +--------+ + | Reason | Onset | Comments | | | Date | | + +--------+ + | Medication Refill | 01/18/ | | | | 2016 | | + +--------+ + Encounter Details +--------+--------+ + + + | Date | Type | Department | Care Team | Description | +--------+--------+ + + + | 01/18/ | Refill | [facility] [place] | [place], | Medication Refill | | 2015 | | PULMONARY [address] | Vera Farrar MD | | | | | [place], | | | | | | [place] [address] | | | | | | [phone] | | | +--------+--------+ + + + [...]
--- OUTSIDE RECORDS SUMMARY | ~2020-07-30 | XMS | Encounter Summary ---
Demographics + + + | Address | [address] | | | [place] [address] | + + + | Home Phone [...] + | [employer] | ECON | [id number] | | | | | Unknown | | + + + + + Care Team Providers + +------+ + | Care Mail Order Sorter Name | Role | Phone | + +------+ + | Yuni Shrestha | PCP | | + +------+ + Encounter Details +--------+ + + + + | Date | Type | Department | Care Team | Description | +--------+ + + + + | 01/04/ | Orders Only | [facility] [place] | [facility], | Dysphagia | | 2016 | | GASTROENTEROLOGY | BRITTANY Maddox [address] | | | | | [address] [place] | [address] | | | | | [address] [place], [place] | [place], [place] | | | | | [address] | [address] | | | | | [phone] | | | +--------+ + + + [...]
--- OUTSIDE RECORDS SUMMARY | ~2020-07-30 | XMS | Encounter Summary ---
Demographics + + + | Address | [address] | | | [place] [address] | + + + | Home Phone [...] + | [employer] | ECON | [phone] | | | | | Unknown | | + + + + + Care Team Providers + +------+ + | Care Railroad Car Loader Name | Role | Phone | + [...] + + | 08/27/ | Office | [facility] | [place], | Primary pulmonary | | 2012 | Visit | PULMONARY [address] | Vera Farrar MD | hypertension (HCC) | | | | [address] [place], | | (Primary Dx); COPD | | | | [place] [address] | | (chronic obstructive | | | | [phone] | | pulmonary disease) | | | [...] MD Elo Bernardo [facility] [address] [place], [address] HPI Margarita Rowley is a 47 y.o. female patient of Gela Trimble [facility] here today for follow up of pulmonary hypertension. At their last visit, we had written for her to start tadalafil. She saw Miguel Desouza, who rec ommended that she start a new medication, called Letus. They did also stop her hormone re [...] Years of Education: N/A Occupational History Disabled. [employer] Social History Main Topics Smoking status: Former Smoker -- 1.0 packs/day for 20 years Types: Cigarettes Quit date: 05/14/2013 Smokeless tobacco: None Alcohol Use: Yes history of abuse Drug Use: Yes Special: Cocaine history of cocaine use Sexually Active: None Other Topics Concern None Social History Narrative Lives at [facility]. Allergies: Allergies Allergen Reactions Erythromycin Metronidazole Penicillins [...] Active Take 2,000 Units by mouth Daily. Auberry Starch POWD Active by Does not apply [...] patch onto the skin every 24 hours. [place]-3 Fatty Acids (SEA-OMEGA 30) 1200 MG CAPS [...] Dr. Rivera and also to the pharmacy theoi ng side effects as I am concerned [...] made to ensure accuracy; however, inadvertent computerized cyber engineer errors may be pre sent. documented in t his encounter Plan of Treatment Not on filedocumented as of this encounter Results Comprehensive Metabolic [...] (H) | 7 - 18 mg/dL | [facility] | | | | | | ST. [...] 55 (L)Comment: For | >60 mL/min/A | [facility] | | | GFR | -Americans, | | [facility] | | | | please multiply [...] + | [facility] | [address] | [place] | [phone] | | [facility] | | [address] | | | - LABORATORY | | | | + + + + + | [facility] | [address] | [place], [place] | | | [facility] | | [id number] [place] [address] | | | - LABORATORY | | [...] | | Cells | | | [facility] | | [...] | | | | gm/dL | [facility] | | | | [...] + | [facility] | [address] | [place] | [phone] | | [facility] | | [address] | | | - LABORATORY | | | | + + + + + | [facility] | [address] | [place], [place] | | | [facility] | | [address], [facility] | | | - [...]
--- OUTSIDE RECORDS SUMMARY | ~2020-07-30 | XMS | Encounter Summary ---
Demographics + + + | Address | [address] | | | [place] [address] | + + + | Home Phone [...] + | [employer] | ECON | [phone] | | | | | Unknown | | + + + + + Care Team Providers + +------+ + | Care Orthopedic Surgeon Name | Role | Phone | [...] HECTOR | | | | | | [address] | | | | | | [phone] | | | +--------+ + + + [...]
--- OUTSIDE RECORDS SUMMARY | ~2020-07-30 | XMS | Encounter Summary ---
Demographics + + + | Address | [address] | | | [place] [address] | + + + | Home Phone [...] + | [employer] | ECON | [phone] | | | | | Unknown | | + + + + + Care Team Providers + +------+ + | Care Electric Shovel Operator Name | Role | Phone | [...] | | | | ABDIRASHID [place] | [facility] [place] | | | | | [place] | [address] | | | | | [address] | [phone] | | | | | [phone] | | | +--------+ + + + [...]
--- OUTSIDE RECORDS SUMMARY | ~2020-07-30 | XMS | Encounter Summary ---
Demographics + + + | Address | [address] | | | [place] [address] | + + + | Home Phone [...] Organization | [facility] | | | and [place] | + + + | Address | Unknown | + + + | Phone | Unavailable | + + + Support + + + + + | Name | Relationship | Address | Phone | + + + + + | [employer] | ECON | [phone] | | | | | Unknown | | + + + + + Care Team Providers + +------+ + | Care In Process Inspector Name | Role | Phone | [...] | | | CENTER [address] | [facility] | | | | | [address] [place], [place] | [place] [address] | | | | | [address] | [phone] | | | | | [phone] | | | +--------+ + + + [...]
--- OUTSIDE RECORDS SUMMARY | ~2020-07-30 | XMS | Encounter Summary ---
Demographics + + + | Address | [address] | | | [place] [address] | + + + | Home Phone [...] + | [employer] | ECON | [phone] | | | | | Unknown | | + + + + + Care Team Providers + +------+ + | Care Spinning Frame Tender Name | Role | Phone | [...] Farrar MD | | | | | [place], | | | | | | [place] [address] | | | | | | [phone] | | | +--------+ + + + [...] her but her records are available in [facility] or we'd be happy [facility] Andra will let us know if they need our assistance. elephone Encounter - Nickie Noriega RN - 06/30/2016 2:21 PM PDTKristi from GI left message with PSR requesting surgical clearance prior to upper endoscopy and colonoscopy. Attempted to call her back but call wou ld not go through at [phone]. documented in this encounter Plan of Treatment Not on filedocumented as of this encounter Visit Diagnoses Not on filedocumented in this encounter"
--- OUTSIDE RECORDS SUMMARY | ~2020-07-30 | XMS | Encounter Summary ---
Demographics + + + | Address | [address] | | | [place] [address] | + + + | Home Phone [...] | Organization | [facility] | | | and [place] | + + + | Address | Unknown | + + + | Phone | Unavailable | + + + Support + + + + + | Name | Relationship | Address | Phone | + + + + + | [employer] | ECON | [phone] | | | | | Unknown | | + + + + + Care Team Providers + +------+ + | Care Fisher Lobster Name | Role | Phone | + [...] + + | 05/22/ | Office | [facility] | Jacky Calderon PA | Primary central | | 2015 | Visit | SLEEP DISORDER [address] | [address] | sleep apnea (Primary | | | | [address] [place] | [place] | Dx) | | | | [place] [address] | [address] | | | | | [phone] | | | +--------+---------+ + + + [...] was: 05/21/2014 date of polysomnography: 03/13/2013 at [facility] AHI: 64.2 O2%: n/a Machine type: Respironics BiPAP Auto with ResMed Quattro FX full face mask obtained from: [facility] in [place] pressure: 16/5 cm with backup rate of [...] year, sooner prn. Fifteen minutes were spent [id number], with the majority of time spent in counseling. Jacky Calderon PA-C cc: BRUCE Beal MD documented in this enco unter Plan of Treatment Not on filedocumented as of this encounter Visit Diagnoses + + | Diagnosis | + + | Primary central sleep apnea - Primary | + + documented in this encounter"
--- OUTSIDE RECORDS SUMMARY | ~2020-07-30 | XMS | Encounter Summary ---
Demographics + + + | Address | [address] | | | [place] [address] | + + + | Home Phone [...] + | [employer] | ECON | [phone] | | | | | Unknown | | + + + + + Care Team Providers + +------+ + | Care Whiskey Regauger Name | Role | Phone | + [...] | hypertension (HCC) | | | | [place], | | | | | | [place] [address] | | | | | | [phone] | | | +--------+ + + + [...]
--- OUTSIDE RECORDS SUMMARY | ~2020-07-30 | XMS | Encounter Summary ---
Demographics + + + | Address | [address] | | | [place] [address] | + + + | Home Phone [...] + | [employer] | ECON | [phone] | | | | | Unknown | | + + + + + Care Team Providers + +------+ + | Care Mechanical Assembly Name | Role | Phone | + [...] [address] | | | | | [address] [place], [place] | [place], [place] | | | | | [address] | [address] | | | | | [phone] | | | +--------+--------+ + + + [...]
--- OUTSIDE RECORDS SUMMARY | ~2020-07-30 | XMS | Encounter Summary ---
Demographics + + + | Address | [address] | | | [place] [address] | + + + | Home Phone [...] + | [employer] | ECON | [phone] | | | | | Unknown | | + + + + + Care Team Providers + +------+ + | Care Music Arranger Name | Role | Phone | + [...] [place] | | | | | | [address] | | | | | | [phone] | | | +--------+ + + + [...] | LV systolic and diastolic functions NML, [place] visually estimates | | | LVEF 60-65%. [...] | LV systolic and diastolic functions NML, [place] visually estimates | | | LVEF 60-65%. [...] pressures of | | | 10-15mmHg. MEASUREMENTS Investment Sales Assistant: | | | Authenticated by: Avila Haynes DO Report Date/Time: -- | | | [id number]:44 | | + + + + + | Procedure Note | + + | Gabriel Zafar Conversion - 06/22/2019 10:54 AM PDT Patient Name: Julia Rowley of | | : 1965 Performing Physician: Avila Haynes | | DO INDICATIONS P | | ulmonary HTN CONCLUSIONS 1. Sinus rhythm. TDS. 2. Cardiac chamber dimensions | | grossly NML. LV systolic and diastolic functions NML, [place] visually estimates LVEF | | 60-65%. RV [...] venous pressures of 10-15mmHg. | | MEASUREMENTS Investment Sales Assistant: DHAuthenticated by: Avila Moses | | Date/Time: -- [id number]:44 IMPRESSION: 1. Sinus rhythm. TDS. 2. Cardiac | | chamber dimensions grossly NML. LV systolic and diastolic functions NML, [place] | | visually estimates LVEF 60-65%. RV [...] | |MEASUREMENTS | | | | | |Investment Sales Assistant: | |Authenticated by: Avila Haynes DO | |Report Date/Time: -- [id number] | | | |IMPRESSION: | |1. Sinus rhythm. TDS. 2. Cardiac chamber dimensions grossly NML. LV systolic and diastoli c functions NML, [place] visually estimates LVEF 60-65%. RV grossly NML. 3. Valves grossly N ML. No /AI. Mild MR, mild | |TR, trace PI. 4. No Pericardial effusion. | | 5. IVC plethoric, est systolic PAP 36-41mmHg, borderline. | + + documented in this encounter Visit Diagnoses Not on filedocumented in this encounter"
--- OUTSIDE RECORDS SUMMARY | ~2020-07-30 | XMS | Encounter Summary ---
Demographics + + + | Address | [address] | | | [place] [address] | + + + | Home Phone [...] + | [employer] | ECON | [phone] | | | | | Unknown | | + + + + + Care Team Providers + +------+ + | Care Soda Fountain Clerk Name | Role | Phone | + +------+ + PCP | Unavailable | + +------+ + Encounter Details +--------+ + + + + | Date | Type | Department | Care Team | Description | +--------+ + + + + | 04/06/ | Hospital | [facility] | Conversion | | | 2011 | Encounter | [facility] | Transaction, | | | | | [facility] | Provider Unknown | | | | | [address]TH [facility], | | | | | | [place] [address] | (Fax) | | | | | [phone] | | | +--------+ + + + [...]
--- OUTSIDE RECORDS SUMMARY | ~2020-07-30 | XMS | Encounter Summary ---
Demographics + + + | Address | [address] | | | [place] [address] | + + + | Home Phone [...] + | [employer] | ECON | [phone] | | | | | Unknown | | + + + + + Care Team Providers + +------+ + | Care Assembler Tractor Name | Role | Phone | + [...] Farrar MD | | | | | [place], | | | | | | [place] [address] | | | | | | [phone] | | | +--------+ + + + [...] ER. Margarita is going to ER at [facility] in [place] for an irregular heart rate and O2 sats dropping to 60-70% on O2 at 2 l/m. documented in this e ncounter Plan of Treatment Not on filedocumented as of this encounter Visit Diagnoses Not on filedocumented in this encounter"
--- OUTSIDE RECORDS SUMMARY | ~2020-07-30 | XMS | Encounter Summary ---
Demographics + + + | Address | [address] | | | [place] [address] | + + + | Home Phone [...] + | [employer] | ECON | [phone] | | | | | Unknown | | + + + + + Care Team Providers + +------+ + | Care Mds Rn Name | Role | Phone | + +------+ + PCP | Unavailable | + +------+ + Encounter Details +--------+ + + + + | Date | Type | Department | Care Team | Description | +--------+ + + + + | 01/10/ | Hospital | [facility] | Caesar Buitrago | | | 2008 | Encounter | HOSPITAL [facility] | [address] | | | | | [address] [place] | [facility], | | | | | [place] | [place] [address] | | | | | [address] | [phone] | | | | | [phone] | | | +--------+ + + + [...]
--- OUTSIDE RECORDS SUMMARY | ~2020-07-30 | XMS | Encounter Summary ---
Demographics + + + | Address | [address] | | | [place] [address] | + + + | Home Phone [...] + | [employer] | ECON | [phone] | | | | | Unknown | | + + + + + Care Team Providers + +------+ + | Care Sanitary Engineer Name | Role | Phone | + +------+ + | Yuni Shrestha | PCP | | + +------+ + Encounter Details +--------+ + + + + | Date | Type | Department | Care Team | Description | +--------+ + + + + | 11/07/ | Orders Only | [facility] | Meryl Montiel | High risk medication | | 2015 | | [facility] | Zari, Graduation Coach | use | | | | [address] [place] | | | | | | [place] | | | | | | [address] | | | | | | [phone] | | | +--------+ + + + [...] | 1.02 | 0.60 - 1.30 | [facility] | | | | | mg/dL | [facility] | | | | | | MEDICAL | | | | | | CENTER - | | | | | | LABORATORY | | + + + + + + | eGFR, | 57 (L)Comment: | >=60 | [facility] | | | non- | GLOMERULAR FILTRATION | mL/min/1.73m2 | [facility] | | | Turkmen | RATE,ESTIMATED | | MEDICAL | | | | mL/min/1.76y3Actk than | | CENTER - | | [...] | 9.6 | 8.3 - 10.5 | [facility] | | | | | mg/dL | [facility] | | | | | | MEDICAL [...] | | Phosphatase | | | [facility] | | | | | | MEDICAL [...] + | [facility] | [address] | [place] | [phone] | | [facility] | | [address] | | | - LABORATORY | | | | + + + + + CBC with Differential (11/07/2015 3:37 PM PST) + +-------+ + + + | Component | Value | Ref Range | Performed | Pathologist | | | | | At | Signature | + +-------+ + + + | White Blood | 5.6 | 4.0 - 11.0 K/uL | [facility] | | | Cells | | | [facility] | | [...] [address] | [place] | [phone] | | [facility] | | [address] | | | - LABORATORY | | | | + + + + + documented in this encounter Visit Diagnoses + + | Diagnosis | + + | High risk medication use Encounter for long-term (current) use of other medications | + + documented in this encounter"
--- OUTSIDE RECORDS SUMMARY | ~2020-07-30 | XMS | Encounter Summary ---
Demographics + + + | Address | [address] | | | [place] [address] | + + + | Home Phone [...] + | [employer] | ECON | [phone] | | | | | Unknown | | + + + + + Care Team Providers + +------+ + | Care Director Specialty Name | Role | Phone | + [...] MD | hypertension | | | | [place], | | (Primary Dx); COPD | | | | [place] [address] | | (chronic obstructive | | | | [phone] | | pulmonary disease); | | | [...] seeing a neurologist for the tremors in [facility] next week. Her breathing has [...] (chronic obstructive pulmonary disease) ([facility]) moderate, FEV1 1.40 (59%) Pulmonary hypertension ([facility]) severe, class 1, class 2, class 3 Bipolar disorder ([facility]) PTSD (post-traumatic stress disorder) Osteoarthritis Obstructive sleep apnea AHI 64.2 Vitamin D deficiency GERD (gastroesophageal reflux disease) Hypothyroidism Seizure disorder (HCC) Developmental delay Hypoxemia ([facility]) on 2L at rest, 4L with exertion Female stress incontinence Pyelonephritis Hypertension Impulse control disorder Hyperlipidemia Obesity Alcohol abuse Cocaine abuse Atrial fibrillation ([facility]) Past Surgical History Past Surgical History Procedure Date Mouth surgery 2 teeth removed Cardiac catherization Social History: History Social History Marital Status: Single Spouse Name: N/A Number of Children: N/A Years of Education: N/A Occupational History Disabled. 1calendar Social History Main Topics Smoking status: Former Smoker -- 1.0 packs/day for 20 years Types: Cigarettes Quit date: 05/14/2013 Smokeless tobacco: None Alcohol Use: Yes Comment: history of abuse Drug Use: Yes Special: Cocaine Comment: history of cocaine use Sexually Active: None Other Topics Concern None Social History Narrative Lives at [facility]. Allergies: Allergies Allergen Reactions Erythromycin Metronidazole Penicillins [...] TABS Take 2,000 Units by mouth Daily. [place] Starch POWD by Does not apply route [...] tablet Take 15 mg by mouth Daily. [place]-3 Fatty Acids (SEA-OMEGA 30) 1200 MG CAPS [...] mouth 2 times daily. Respiratory Therapy Supplies [facility] BIPAP ST rate 8 cm H2O. IPAP 19/EPAP 5. O2 bleed in a t 2 l/m. Lifetime. Dx: 327.23 1 each 0 Respiratory Therapy Supplies [facility] Please contact Dr. Lainez's office if oxygen [...] Paroxysmal atrial fibrillation- Per caregiver seen at [facility]'s ER visit. We will ge t records [...] Letairis. 5. We will get records from [facility]'s ER visit, but I did suggest cardiology [...] made to ensure accuracy; however, inadvertent computerized hotel valet attendant errors may be pre sent. Electronically signed [...]
--- OUTSIDE RECORDS SUMMARY | ~2020-07-30 | XMS | Encounter Summary ---
Demographics + + + | Address | [address] | | | [place] [address] | + + + | Home Phone [...] + | [employer] | ECON | [phone] | | | | | Unknown | | + + + + + Care Team Providers + +------+ + | Care Roll Repairer Name | Role | Phone | [...] + + | 09/25/ | Office | [facility] | Jacky Calderon PA | Primary central | | 2012 | Visit | SLEEP DISORDER [address] | [address] | sleep apnea (Primary | | | | [address] [place] | [place] | Dx) | | | | [place] [address] | [address] | | | | | [phone] | | | +--------+---------+ + + + [...] visit was: date of polysomnography: 03/13/2013 at [facility] AHI: 64.2 O2%: n/a Machine type: Respironics BiPAP Auto with ResPocket Quattro FX full face mask obtained from: [facility] pressure: 18/14 cm Nights using BiPAP: [...] weeks, sooner prn. Thirty minutes were spent [id number], wit h the majority of time spent [...]
--- OUTSIDE RECORDS SUMMARY | ~2020-07-30 | XMS | Clinical Summary ---
Demographics + + + | Address | [address] | | | [place] [address] | + + + | Home Phone [...] + | [employer] | ECON | [id number] | | | | | Unknown | | + + + + + Care Team Providers + +------+ + | Care Tire Bladder Maker Name | Role | Phone | [...] | + + + +---+------+---+-------+ | NYSTATIN [id number] | as needed | | 0 | [...] | | + + + +---+------+---+-------+ | cetirizine | | | 0 | 09/0 | | Activ | | (ZYRTEC) 10 mg | | | | 9/20 | | e | | tablet | | | | 20 | | | + + + +---+------+---+-------+ | divalproex | | | 0 | 09/0 | | Activ | | (DEPAKOTE ER) 500 mg | | | | 9/20 | | e | | 24 hr tablet | | | | 20 | | | + + + +---+------+---+-------+ | doxycycline | | | 0 | 09/1 | | Activ | | (MONODOX) 100 mg | | | | 4/20 | | e | | capsule | | | | 20 | | [...] + + + + | Overview: Overview: [facility] 05/10/13: RV 109/22PA 105/47 Mean PA | | 63Wedge mean 10Overview: -[facility] 04/2013 [facility]: FindingsBASELINE on 2L | | [...] & Plan: -echocardiogram at local | | hospital-[facility]. We will talk by phone with | | the results.-keep up the good work with walking, BIPAP use, | | oxygen use, and no smoking. -continue with your yearly flu | | vaccine.-you should have a f/u appointment with your new | | bottom sander sometime in the next 6 months. -you [...] Walk at next visit. | | Overview: -[facility] 04/2013 [facility]: FindingsBASELINE on 2L O2RA: mean [...] & Plan: -echocardiogram at local | | hospital-[facility] in [place]. We will talk by phone with | | the results.-keep up the good work with walking, BIPAP use, | | oxygen use, and no smoking. -continue with your yearly flu | | vaccine.-you should have a f/u appointment with your new | | bottom sander sometime in the next 6 months. -you [...] 1 year or sooner if needed. Dr. Atrhur will help us | | decide if you need to come back sooner. Walk at next visit. | |Overview: | |-[facility] 04/2013 [facility]: Findings | |BASELINE on 2L [...] |Last Assessment & Plan: | |-echocardiogram at [facility] in [place]. We will talk by phone with t he results. | |-keep up the good work with walking, BIPAP use, oxygen use, and no smoking. | |-continue with your yearly flu vaccine. | |-you should have a f/u appointment with your new bottom sander sometime in the next 6 month s. [...] +--------+ + + + + | 07/23/ Office | Pulmonology | Helen Astudillo | Chronic obstructive | | 2020 | Visit | | MD Vikash | pulmonary disease, | | | | | | unspecified COPD | | | | | | type ([facility]) (Primary | | | | | | Dx); Primary | | | | | | pulmonary | | | | | | hypertension ([facility]); | | | | | | Chronic hypoxemic | | | | | | respiratory failure | | | | | | ([facility]); Dyspnea on | | | | | | exertion | +--------+ + + + + | 07/23/ | Hospital | Pulmonology | Helen Astudillo | Primary pulmonary | | 2019 | Encounter | | MD Vikash | hypertension ([facility]); | | | | | | Chronic obstructive | | | | | | pulmonary disease, | | | | | | unspecified COPD | | | | | | type ([facility]) | +--------+ + + + + | 05/22/ | Surgery | | Angel Garcia | RIGHT EXTRACTION | | 2019 | | | MD Vladimir | CATARACT W/ OR W/O | | | | | | LENS IMPLANT | +--------+ + + + + | 05/22/ | Anesthesia | | Scout Lagunas, | | | 2019 | Event | Tracey CANALES | | +--------+ + + + + | 05/22/ | Hospital | | Angel Garcia | | 2019 | Encounter | | [...] Dx) | +--------+ + + + + from [...] | TRIVALENT(PED/ADOL/A | 07/31/2013 | | | MARLENY PSKT | | | + + + [...] Left: | [place] | | 09/04/ | [id number] | | 23.5 - [id number]: | c | Eye | MEDICAL | | 2021 | [id number] | | Qty: 1 on 05/08/2020 by | | | [employer] - | | | /[id number] | | Angel Garcia MD at | | | [place] | | | [id number] | | [facility] | | | | | | / | | [facility] | | | | | | | + +--------+--------+ +--------+--------+--------+ | Lens Tecnis Preloaded Pcb | Generi | Right: | [place] | | 01/06/ | [id number] | | 23.0 - [id number]: | c | Eye | MEDICAL | | 2022 | 0230 | | Qty: 1 on 05/22/2020 by | | | [employer] - | | | /[id number] | | Angel Garcia MD at | | | [place] | | | [id number] | | [facility] | | | | | | / | | [facility] | | | | | | | + +--------+--------+ +--------+--------+--------+ Procedures + +--------+ + + + | Procedure Name | Priori | Date/Time | Associated Diagnosis | Comments | | | ty | | | | + +--------+ + + + | PFT PULMONARY | Routin | 07/23/2020 | Primary pulmonary | Results for this | | FUNCTION TESTING | e | 10:15 AM | hypertension (HCC) | procedure are in the | | ORDERS | | PDT | Chronic obstructive | results section. | | | | | pulmonary disease, | | | | | | unspecified COPD | | | | | | type (HCC) | | + +--------+ + + + | PFT PULMONARY | Routin | 07/23/2020 | Primary pulmonary | Results for this | | FUNCTION TESTING | e | 10:15 AM | hypertension (HCC) | procedure are in the | | ORDERS | | PDT | Chronic obstructive | results section. | | | | | pulmonary disease, | | | | | | unspecified COPD | | | | | | type (HCC) | | + +--------+ + + + | PFT PULMONARY | Routin | 07/23/2020 | Primary pulmonary | Results for this | | FUNCTION TESTING | e | 10:15 AM | hypertension (HCC) | procedure are in the | | ORDERS | | PDT | Chronic obstructive | results section. | | | | | pulmonary disease, | | | | | | unspecified COPD | | | | | | type (HCC) | | + +--------+ + + + | PFT PULMONARY | Routin | 07/23/2020 | Primary pulmonary | Results for this | | FUNCTION TESTING | e | 10:15 AM | hypertension (HCC) | procedure are in the | | ORDERS | | PDT | Chronic obstructive | results section. | | | | | pulmonary disease, | | | | | | unspecified COPD | | | | | | type (HCC) | | + +--------+ + + + | PFT PULMONARY | Routin | 07/23/2020 | Primary pulmonary | Results for this | | FUNCTION TESTING | e | 10:15 AM | hypertension (HCC) | procedure are in the | | ORDERS | | PDT | Chronic obstructive | results section. | | | | | pulmonary disease, | | | | | | unspecified COPD | | | | | | type (HCC) | | + +--------+ + + + [...] Needs | | | | | | Curriculum Developer | | | al | | | test | +---+--------+ + +---+ +---+ + | LABS - EXTERNAL SCAN | | 05/05/2020 | | Results for this | | | | 12:00 AM | | procedure are in the | | | | PDT | | results section. | + +---+ +---+ + from Last 3 Months Results Pulmonary function test full PFT; six minute walk (07/23/2020 10:15 AM PDT) + + + | Narrative | Performed At | + + + | Helen Suh | | | MD Baudilio 07/23/2020 3:12 PM PULMONARY FUNCTION TESTING | | | SPIROMETRY: The FVC was 2.43 L or 95% of predicted. The FEV1 was 1.80 | | | L or 85% of predicted. FEV1/FVC ratio was 74%. LUNG VOLUMES: The | | | total lung capacity was 3.44 L or 80% of predicted. The residual | | | volume was 1.01 L or 61% of predicted. RV/TLC ratio was 29% of | | | predicted. DIFFUSION CAPACITY: The diffusion capacity was 7.9 mL/mmHg | | | per minute or 36% of predicted. LETICIA: Spirometry is consistent | | | with normal physiology. Lung volume testing is consistent with normal | | | physiology. Diffusion capacity is severely reduced and is not | | | corrected for measured hemoglobin. Compared to prior pulmonary | | | function test done 07/04/2013, the following changes have occurred: FVC | | | improved by 19%, FEV1 improved by 28%. EXERCISE OXIMETRY: Attempted to | | | perform 6-minute walk test. Patient walked approximately 100 feet | | | while on 2 L pulsed oxygen. Patient complained of dizziness and | | | feeling faint and declined to try additional walking. At rest on 2 | | | L, O2 sat was 96%. With walking approximately 100 feet, O2 decreased | | | to 91% on 2 L with heart rate of 106. Test was terminated as | | | patient was unable to walk further due to dizziness and feeling faint. | | | Test performed: 07/23/2020Electronically signed by: Helen Astudillo MD, | | | 07/23/2020 3:05 PM [facility] | | | | | |EXERCISE OXIMETRY: Attempted to perform 6-minute walk test. | | |Patient walked approximately 100 feet while on 2 L pulsed oxygen. | | | Patient complained of dizziness and feeling faint and declined | | |to try additional walking. At rest on 2 L, O2 sat was 96%. With | | |walking approximately 100 feet, O2 decreased to 91% on 2 L with | | |heart rate of 106. Test was terminated as patient was unable to | | |walk further due to dizziness and feeling faint. | | | | | |Test performed: 07/23/2020 | | |Electronically signed by: Helen Astudillo MD, 07/23/2020 3:05 PM | | |PDT | | |[facility] | | + + + PATHOLOGY - EXTERNAL SCAN (05/22/2020 12:00 AM [...] | [employer] | [employer] | [id number] | 04/30/20 | [phone] | | [employer] | | MEDICAID HMO [...] | | al/Fam | | 1965 | [phone] | [place] | | | jammie | | | 5 (Home) | [phone] | + +--------+ +--------+ + + Advance Directives + + + + + | Type | Date Recorded | Patient | Explanation | | | | Hospital Sales Representative | | + + + + + | Power of | | | | | Special Needs Caregiver | | | | + + + [...]
--- OUTSIDE RECORDS SUMMARY | ~2020-07-30 | XMS | Encounter Summary ---
Demographics + + + | Address | [address] | | | [place] [address] | + + + | Home Phone [...] + | [employer] | ECON | [id number] | | | | | Unknown | | + + + + + Care Team Providers + +------+ + | Care Salvage Diver Name | Role | Phone | + [...] HECTOR | | | | | | [address] | | | | | | [phone] | | | +--------+ + + + [...]
--- OUTSIDE RECORDS SUMMARY | ~2020-07-30 | XMS | Encounter Summary ---
Demographics + + + | Address | [address] | | | [place] [address] | + + + | Home Phone [...] + | [employer] | ECON | [id number] | | | | | Unknown | | + + + + + Care Team Providers + +------+ + | Care Territory Sales Consultant Name | Role | Phone | [...] | | | | | | | [place] [employer] | | | | | | [...] | | [place] | [place] [address] | | | | | [address] | [phone] | | | | | [phone] | | | +--------+---------+ + + + [...] symptoms, immediately call your eye doctor or [facility] at (dial "9" after hours or on [...] + + +---------+ + + | NYSTATIN [phone] | as needed | | 0 | [...] Angel Garcia MD, 05/22/2020 2:10 PM PDT [facility] documented in t his encounter Miscellaneous Notes Op Note - Angel Garcia MD - 05/22/2020 3:12 PM PDTPre-op Diagnosis: 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), right eye Post-op Diagnosis: same Procedure: Cataract extraction by phacoemulsification with intraocular lens implant, right eye (83562) Implant: J&J PCB00 23.0 D, SN [id number] Surgeon: Angel Garcia MD Anesthesia: Monitored Anesthesia [...] Wheezing, | | | Starting [facility] 05/22/20 at 1521, | | | [...] | | | Wheezing, Starting [facility] 05/22/20 at | | | 1324, For 1 dose, Pre-op | | + +---+ | | | + +---+ + +-------+ + +---+ + | balanced salts sterile | Given | 05/22/20 | 1 | | Surgical | | ophthalmic irrigation solution | | 20 2:57 | Applicat | | Site | | PRN, Starting [facility] 05/22/20 at | | PM PDT [...] | | | PRN, Starting [facility] 05/22/20 at | | | | [...] 50, | | | Starting [facility] 05/22/20 at 1324, | | | [...] | | | | Starting [facility] 05/22/20 at 1324, For | | [...] | t | | Starting [facility] 05/22/20 at 1458, | | PM PDT | | | | | Intra-op | | | | | | + +-------+ +--------+---+ + + +---+ | | | + +---+ | ondansetron (ZOFRAN) injection | | | 4 mg 4 mg, Intravenous, EVERY 4 | | | HOURS PRN, Nausea, Vomiting, | | | Starting [facility] 05/22/20 at 1521, | | | [...] Site | | PRN, Starting [facility] 05/22/20 at | | PM PDT [...]
--- OUTSIDE RECORDS SUMMARY | ~2020-07-30 | XMS | Encounter Summary ---
Demographics + + + | Address | [address] | | | [place] [address] | + + + | Home Phone [...] + | [employer] | ECON | [id number] | | | | | Unknown | | + + + + + Care Team Providers + +------+ + | Care Title Insurance Agent Name | Role | Phone | + [...] | hypertension (HCC) | | | | [address], | [place] [address] | (Primary Dx) | | | | [place] [address] | [phone] | | | | | [phone] | | | +--------+ + + + [...]
--- OUTSIDE RECORDS SUMMARY | ~2020-07-30 | XMS | Encounter Summary ---
Demographics + + + | Address | [address] | | | [place] [address] | + + + | Home Phone [...] + | [employer] | ECON | [id number] | | | | | Unknown | | + + + + + Care Team Providers + +------+ + | Care Vendor Management Associate Name | Role | Phone | [...] | | | [address] [place] | [place] [address] | | | | | [address] | [phone] | | | | | [phone] | | | +--------+ + + + [...]
--- OUTSIDE RECORDS SUMMARY | ~2020-07-30 | XMS | Encounter Summary ---
Demographics + + + | Address | [address] | | | [place] [address] | + + + | Home Phone [...] + | [employer] | ECON | [id number] | | | | | Unknown | | + + + + + Care Team Providers + +------+ + | Care Marine Electrician Helper Name | Role | Phone | + +------+ + | Gela Trimble NP | PCP | | + +------+ + Reason for Visit +--------+--------+ + | Reason | Onset | Comments | | | Date | | +--------+--------+ + | Other | 08/08/ | YUMIKO# for prescription Tim CALDERON#[id number] from | | | 2012 | 08.07.13-08.07.14 | +--------+--------+ + Encounter Details +--------+ + + + + | Date | Type | Department | Care Team | Description | +--------+ + + + + | 08/08/ | Telephone | [facility] | Valeria Reed, | Other (PA# for | | 2012 | | PULMONARY [address] | RN | prescription Adcirca | | | | [place], | | PA#[id number] from | | | | [place] [address] | | 08.07.13-08.07.14) | | | | [phone] | | | +--------+ + + + [...] encounter Miscellaneous Notes Telephone Encounter - Valeria Gillis, RN - [facility] [phone] received prior authorization for 1 year for prescription A dcirca. Called pharmacy and patient onsite case manager. documented in this encounter Plan of Treatment Not on filedocumented as of this encounter Visit Diagnoses Not on filedocumented in this encounter"
--- OUTSIDE RECORDS SUMMARY | ~2020-07-30 | XMS | Encounter Summary ---
Demographics + + + | Address | [address] | | | [place] [address] | + + + | Home Phone [...] + | [employer] | ECON | [id number] | | | | | Unknown | | + + + + + Care Team Providers + +------+ + | Care Sinter Press Operator Name | Role | Phone [...] | | | Hypoxemia | [place] | [address] Phone: | | | | | Procedures | [address] | [phone] | | | | | F/U APPT | Phone: | Fax: | | | | | [facility] | [phone] | [phone] | | | | | 01/29/2020 | Fax: | | | | | | | [phone] | | + +--------+ + + + + Encounter Details +--------+---------+ + + + | Date | Type | Department | Care Team | Description | +--------+---------+ + + + | 04/16/ | Office | [facility] | Baudilio Helen | Primary pulmonary | | 2020 | Visit | PULMONARY [address] | MD Vikash [address] | hypertension (HCC) | | | | [address], | [address] [place] | (Primary Dx); | | | | [place] [address] | [place] [address] | Chronic obstructive | | | | [phone] | [phone] | pulmonary disease, | | | | [...] + + + | Blood Pressure | 108/72 | 04/16/2020 10:42 AM | | | | | PDT | | + + + + + | Pulse | 84 | 04/16/2020 10:42 AM | | | | | PDT | | + + + + + | Temperature | 36.6 C (97.8 F) | 04/16/2020 10:42 AM | | | | | PDT | | + + + + + | Respiratory Rate | - | - | | + + + + + | Oxygen Saturation | 92% | 04/16/2020 10:42 AM | 2L of oxygen | | | | PDT | | + + + + + | Inhaled Oxygen | - | - | | | Concentration | | | | + + + + + | Weight | 89.9 kg (198 lb 3.1 | 04/16/2020 10:42 AM | | | | oz) | PDT | | + + + + + | Height | 139.7 cm (4' 7") | 04/16/2020 10:42 AM | | | | | PDT | | + + + + + | Body Mass Index | 46.06 | 04/16/2020 10:42 AM | | | | | PDT | | + + + + + documented in this encounter Patient Instructions Patient Instructions Helen Astudillo MD - 04/16/2020 10:45 AM PDT- Continue follow up w chica Rivera. - No medication changes. - Return to clinic in 3 months. Will repeat PFT and 6 minute walk test.Electronically shereen d by Helen Astudillo MD at 04/16/2020 11:52 AM PDT documented in this encounter Progress Notes Helen Astudillo MD - 04/16/2020 10:45 AM PDT Subjective: Margarita Rowley is a 54 y.o. female who presents to the clinic with her caregiver with a c hief complaint of Follow-up HPI 54 year old female with past medical history Group 1 and 3 pulmonary HTN, COPD, bipolar dis order who presents for follow up. - Patient last seen by Dr. Scout Arthur, 01/31/2019. - Patient is followed by Dr. Lashae Rivera, at [facility] in [place], [place] for pulmona ry HTN. - Patient recently admitted to hospital 01/31 to 02/19/2020 at [facility] for ARDS secondar y to Metapneumovirus pneumonia with MRSA super-infection. - Patient required intubation from 01/31 - 02/11. - During her hospital course, pulmonary hypertension regimen modified per Dr. Rivera. Kiera nt started on selexipag and remains on tadalafil. - She has been in touch with Dr. Rivera's office for uptitration of selexipag. - Since discharge from hospital, she has had 3 ER visits. 2 of those episodes were related to SOB. - Her caregiver feels that the SOB episodes may have been precipitated by taking off her ox ygen. - Briefly, in the last year since July 2019, there has been a significant decline in f unctional status. - At most, she walks to and from the bathroom. She is now requiring a walker since her hosp italization in 01/2020 at [facility]. - She has been prescribed to do 500 steps, but does not want to do it. - She often falls asleep in her chair and does not put her bipap back on. Her caregiver not es that she is getting better at putting her bipap on lately. - She has cough related to post-nasal drip. - Patient has wheezing when she wakes up from a nap. - She is on 2L O2 at rest, 4L O2 with ambulation, 5L O2 with Bipap. - She lives in a residential. She is able to feed herself and shower independently. Her home keeps track of medication, fluid restrictions. - Patient has had several medication changes. No medication list available today. - No fever or chills. Patient's medications, allergies, past medical, surgical, social [...] for agitation and behavioral problems. Objective: Vitals: 04/16/20 1042 BP: 108/72 Pulse: 84 Temp: 36.6 C (97.8 F) Physical Exam Constitutional: General: She is not in acute distress. Appearance: Normal appearance. She is not toxic-appearing. HENT: Head: Normocephalic and atraumatic. Right Ear: External ear normal. Left Ear: External ear normal. Nose: Nose normal. No congestion. Eyes: Extraocular Movements: Extraocular movements intact. Conjunctiva/sclera: Conjunctivae normal. Pupils: Pupils are equal, round, and reactive to light. Neck: Musculoskeletal: Neck supple. No neck rigidity or muscular tenderness. Cardiovascular: Rate and Rhythm: Normal rate and regular rhythm. Heart sounds: Normal heart sounds. No murmur. No friction rub. No gallop. Pulmonary: Effort: Pulmonary effort is normal. No respiratory distress. Breath sounds: Normal breath sounds. No wheezing or rales. Abdominal: General: Abdomen is flat. Bowel sounds are normal. Palpations: Abdomen is soft. Musculoskeletal: Right lower leg: Edema (trace) present. Left lower leg: Edema (trace) present. Lymphadenopathy: Cervical: No cervical adenopathy. Skin: General: Skin is warm and dry. Neurological: General: No focal deficit present. Mental Status: She is alert and oriented to person, place, and time. Psychiatric: Mood and Affect: Mood normal. Behavior: Behavior normal. Assessment & Plan: 1. Primary pulmonary hypertension (HCC) PFT [facility] 2. Chronic obstructive pulmonary disease, unspecified COPD type (HCC) PFT [facility] 3. Chronic hypoxemic respiratory failure (HCC) Pulmonary HTN (WHO group 1 and 3, functional class III) - Continue follow up with Dr. Rivera. COPD - No medication list available today. - Her caregiver reports that there have been medication changes since discharge of hospital . Her facility will fax us a medication list. - Check full PFTs and 6MWT. Chronic hypoxic respiratory failure - Continue 2L O2 at rest, 4L O2 with ambulation, 5L O2 with Bipap. 30 minutes spent face to face with the patient, with more than half the time spent counseli ng regarding oxygen use, bipap use, need to increase activity. See AVS for patient instructions. Diagnosis and plan including medications and side effects were discussed with the patient a nd information handout was given. Patient voices understanding of the plan and all questions were answered. Return in about 3 months (around 07/17/2020). documented in this encounter Plan of Treatment Not on filedocumented as of this encounter Results Pulmonary function test full PFT; six [...] | per minute or 36% of predicted. IMPRESSION: Spirometry is consistent | | | with [...] MD, | | | [facility] | | | | |EXERCISE [...] 3:05 PM | | |PDT | | |[facility] | | + + + documented in this encounter Visit Diagnoses + + | Diagnosis | + + | Primary pulmonary hypertension (HCC) - Primary Primary pulmonary hypertension | + + | Chronic obstructive pulmonary disease, unspecified COPD type (HCC) | + + | Chronic hypoxemic respiratory failure (HCC) Chronic respiratory failure | + + documented in this encounter
--- OUTSIDE RECORDS SUMMARY | ~2020-07-30 | XMS | Encounter Summary ---
Demographics + + + | Address | [address] | | | [place] [address] | + + + | Home Phone [...] + | [employer] | ECON | [id number] | | | | | Unknown | | + + + + + Care Team Providers + +------+ + | Care Sander Setter Name | Role | Phone | + +------+ + | Gela Trimble NP | PCP | | + +------+ + Encounter Details +--------+ + + + + | Date | Type | Department | Care Team | Description | +--------+ + + + + | 07/04/ | Hospital | [facility] | Offenstein, | Pulmonary | | 2012 | Encounter | MED CTR GENERIC OP | Vera Farrar MD | hypertension (HCC) | | | | CONV DEPT [address] | | | | | | [place], | | | | | | [place] [address] | | | | | | [phone] | | | +--------+ + + + [...] | + + + +---------+--------+ + | [place]-3 Fatty | Take by mouth. | | [...] of this encounter Plan of Treatment + +------+--------+ [...] 07/04/2013 | + +------+--------+ + + | OCCUPATIONAL THERAPIST ASSISTANTS Ab, IgG | Lab | Routin | [...] [place] | | | | | | [address] CLIA: | | | | | | [id number] | | | | + + + + + + + + | Specimen | + + | | + + + + + + + | Performing | Address | City/State/Zipcode | Phone Number | | Organization | | | | + + + + + | [facility] | [address] | [place] | [phone] | | [facility] | | [address] | | | - LABORATORY | | | | + + + + + | [facility] | [address] | [place], [place] | | | [facility] | | [address], [facility] | | | - LABORATORY [...] | | MEDICAL | | | | [place] [address] | | CENTER - | | | | CLIA: [id number] | | LABORATORY | | + + + + + + + + | Specimen | + + | | + + + + + + + | Performing | Address | City/State/Zipcode | Phone Number | | Organization | | | | + + + + + | [facility] | [address] | [place], [place] | [phone] | | [facility] | | [address] | | | - LABORATORY | | | | + + + + + | [facility] | [address] | [place], [place] | | | [facility] | | [address], [facility] | | | - LABORATORY [...] | Autoantibod | Testing Performed: | | [facility] | | | y | [place], [address], | | MEDICAL | | | | [place] [address] | | CENTER - | | | | CLIA: [id number] | | LABORATORY | | + + + + + + + + | Specimen | + + | | + + + + + + + | Performing | Address | City/State/Zipcode | Phone Number | | Organization | | | | + + + + + | [facility] | [address] | [place] | [phone] | | [facility] | | [address] | | | - LABORATORY | | | | + + + + + | [facility] | [address] | [place] | | | [facility] | | [address], [facility] | | | - LABORATORY [...] | Autoantibod | Testing Performed: | | [facility] | | | y | [facility], [address], | | MEDICAL | | | | [place] [address] | | CENTER - | | | | CLIA: [id number] | | LABORATORY | | + + + + + + + + | Specimen | + + | | + + + + + + + | Performing | Address | City/State/Zipcode | Phone Number | | Organization | | | | + + + + + | [facility] | [address] | [place], [place] | [phone] | | [facility] | | [address] | | | - LABORATORY | | | | + + + + + | [facility] | [address] | [place], [place] | | | [facility] | | [address] [[email or web address]] | | | [...] Equal to or <4 | | [facility] | | | y | Testing Performed: | | MEDICAL | | | | [facility], [address], | | [place] - | | | | [place] [address] | | LABORATORY | | | | CLIA: [id number] | | | | + + + + + + + + | Specimen | + + | | + + + + + + + | Performing | Address | City/State/Zipcode | Phone Number | | Organization | | | | + + + + + | [facility] | [address] | [place] | [phone] | | [facility] | | [address] | | | - LABORATORY | | | | + + + + + | [facility] | [address] | [place], [place] | | | [facility] | | [address], [facility] | | | - LABORATORY [...] | | [facility] | | | grant | [address], | | MEDICAL | | | | [place] [address] | | CENTER - | | | | CLIA: [id number] | | LABORATORY | | + + + + + + | OCCUPATIONAL THERAPIST ASSISTANTS | 0.4Comment: Negative | <1.0 AI | [facility] | | | Autoantibod | Testing Performed: | | [facility] | | | y | [place], [address], | | MEDICAL | | | | [place] [address] | | CENTER - | | | | CLIA: [id number] | | LABORATORY | | + + + + + + | SMRNP | <0.2Comment: Negative | <1.0 AI | [facility] | | | Autoantibod | Testing Performed: | | [facility] | | | y | [facility], [address], | | MEDICAL | | | | [place] [address] | | CENTER - | | | | YANG: [id number] | | LABORATORY | | + + + + + + + + | Specimen | + + | | + + + + + + + | Performing | Address | City/State/Zipcode | Phone Number | | Organization | | | | + + + + + | [facility] | [address] | [place] | [phone] | | [facility] | | [address] | | | - LABORATORY | | | | + + + + + | [facility] | [address] | [place], [place] | | | [facility] | | [address], [facility] | | | - LABORATORY [...] REFERENCE | 1.5 - 8.1 U/L | [facility] | | | | INTERVAL: Aldolase | | [facility] | | | | Access complete set of | | MEDICAL | | | | age- and/or | | CENTER - | | | | gender-specific | | LABORATORY | | | | reference intervals | | | | | | for this test in the | | | | | | [facility] Test | | | | | | Directory ([employer]). | | | | | | Testing Performed: | | | | | | [facility], [address], | | | | | | [place], [place] | | | | | | [address] CLIA: | | | | | | [id number] | | | | + + + + + + + + | Specimen | + + | | + + + + + + + | Performing | Address | City/State/Zipcode | Phone Number | | Organization | | | | + + + + + | [facility] | [address] | [place], [place] | [phone] | | [facility] | | [address] | | | - LABORATORY | | | | + + + + + | [facility] | [address] | [place], [place] | | | [facility] | | [address] [[email or web address]] | | | [...] | Performed: [facility], [address] | | [facility] | | | | [place] | | MEDICAL | | | | [address] CLIA: [id number] | | CENTER - | | | | | | LABORATORY | | + + + + + + + + | Specimen | + + | | + + + + + + + | Performing | Address | City/State/Zipcode | Phone Number | | Organization | | | | + + + + + | [facility] | [address] | [place], [place] | [phone] | | [facility] | | [address] | | | - LABORATORY | | | | + + + + + | [facility] | [address] | [place], [place] | | | [facility] | | [address] | | | - LABORATORY | | | | + + + + + CK Total (07/04/2013 4:21 PM PDT) + +-------+ + + + | Component | Value | Ref Range | Performed | Pathologist | | | | | At | Signature | + +-------+ + + + | CK TOTAL | 33 | 22 - 269 IU/L | [facility] | | | | | | STWinter [...] [address] | [place] | [phone] | | [facility] | | [address] | | | - LABORATORY | | | | + + + + + | [facility] | [address] | [place] | | | [facility] | | [address], [facility] | | | - LABORATORY [...] [facility] | | | FACTOR | Performed: [facility], [address] | | [facility] | | | | [place], [place] | | MEDICAL | | | | [id number]: [id number] | | CENTER - | | | [...] + | [facility] | [address] | [place], [place] | [phone] | | [facility] | | [address] | | | - LABORATORY | | | | + + + + + | [facility] | [address] | [place], [place] | | | [facility] | | [address], [facility] | | | - LABORATORY [...] + | [facility] | [address] | [place], [place] | [phone] | | [facility] | | [address] | | | - LABORATORY | | | | + + + + + | [facility] | [address] | [place], [place] | | | [facility] | | [address] [[email or web address]] | | | - LABORATORY | | | | + + + + + documented in this encounter Visit Diagnoses + + | Diagnosis | + + | Pulmonary hypertension (HCC) Other chronic pulmonary heart diseases | + + documented in this encounter"
--- OUTSIDE RECORDS SUMMARY | ~2020-07-30 | XMS | Encounter Summary ---
Demographics + + + | Address | [address] | | | [place] [address] | + + + | Home Phone [...] + | Organization | [facility] | | | and [place] | + + + | Address | Unknown | + + + | Phone | Unavailable | + + + Support + + + + + | Name | Relationship | Address | Phone | + + + + + | [employer] | E[place] | [id number] | | | | | Unknown | | + + + + + Care Team Providers + +------+ + | Care Efficiency Manager Name | Role | Phone | + +------+ + | Gela Trimble NP | PCP | | + +------+ + Reason for Visit +--------+--------+ + | Reason | Onset | Comments | | | Date | | +--------+--------+ + | Other | 01/07/ | | | | 2013 | | +--------+--------+ + Encounter Details +--------+ + + + + | Date | Type | Department | Care Team | Description | +--------+ + + + + | 01/07/ | Telephone | [facility] [place] | [place], | Other | | 2013 | | PULMONARY [address] | Vera Farrar MD | | | | | [place], | | | | | | [place] [address] | | | | | | [phone] | | | +--------+ + + + [...] orders w ere confirmed with Suma at [facility] (her boss) on 12/27/13. She also had questions regar ding the oxygen equipment. I directed her to call [facility] and have them re view Jacky [place]'s orders from 12/26/13 visit and also to clarify the equipment function w ith them. She said she will do that now. Electronically signed by Jia Noriega RN at 0 01/07/2014 3:15 PM PDTdocumented in this encounter Plan of Treatment Not on filedocumented as of this encounter Visit Diagnoses Not on filedocumented in this encounter"
--- OUTSIDE RECORDS SUMMARY | ~2020-07-30 | XMS | Encounter Summary ---
Demographics + + + | Address | [address] | | | [place] [address] | + + + | Home Phone [...] + | [employer] | ECON | [phone] | | | | | Unknown | | + + + + + Care Team Providers + +------+ + | Care Emery Wheel Worker Name | Role | Phone | [...] Farrar MD | | | | | [place], | | | | | | [place] [address] | | | | | | [phone] | | | +--------+--------+ + + + [...]
--- OUTSIDE RECORDS SUMMARY | ~2020-07-30 | XMS | Encounter Summary ---
Demographics + + + | Address | [address] | | | [place] [address] | + + + | Home Phone | | + + + | Preferred Language | Unknown | + + + | Marital Status | Single | + + + | Islam Affiliation | NRP | + + + [...] Team Providers + +------+ + | Care National Service Officer Name | Role | Phone | + +------+ + | Gela Trimble NP | PCP | | + +------+ + Encounter Details +--------+ + + + + | Date | Type | Department | Care Team | Description | +--------+ + + + + | 05/04/ | Results | Stress | Other, Faculty | | | 2012 | Only | Echocardiography | [phone] | | | | | [address] | | | | | | Loop Mailcode: | | | | | | OP12B Outpatient | | | | | | Clinic Building | | | | | | [place], [place] | | | | | | [address] | | | | | | [phone] | | | +--------+ + + + [...] + + | [facility] | [address] | [place], [place] | | | CARDIOLOGY | [address] | [address] | | + + + + + documented in this encounter Visit Diagnoses Not on filedocumented in this encounter"
--- OUTSIDE RECORDS SUMMARY | ~2020-07-30 | XMS | Encounter Summary ---
Demographics + + + | Address | [address] | | | [place] [address] | + + + | Home Phone [...] | Organization | [facility] | | | and [place] | + + + | Address | Unknown | + + + | Phone | Unavailable | + + + Support + + + + + | Name | Relationship | Address | Phone | + + + + + | [employer] | ECON | [id number] | | | | | Unknown | | + + + + + Care Team Providers + +------+ + | Care Manager Cardiovascular Name | Role | Phone | + +------+ + | Shanice Huang MD | PCP | | + +------+ + Encounter Details +--------+ + + + + | Date | Type | Department | Care Team | Description | +--------+ + + + + | 01/31/ | Orders Only | [facility] [place] | Scout Arthur, | Obstructive sleep | | 2019 | | PULMONARY [address] | [address] | apnea (Primary Dx); | | | | [place], | [place] [address] | Obstructive sleep | | | | [place] [address] | [phone] | apnea (adult) | | | | [phone] | | (pediatric) | +--------+ + + + + Social [...] apnea (adult) (pediatric) | + + | Obstructive sleep apnea (adult) (pediatric) | + + documented in this encounter"
--- OUTSIDE RECORDS SUMMARY | ~2020-07-30 | XMS | Encounter Summary ---
Demographics + + + | Address | [address] | | | [place] [address] | + + + | Home Phone [...] + | [employer] | ECON | [phone] | | | | | Unknown | | + + + + + Care Team Providers + +------+ + | Care Bead Forming Machine Operator Name | Role | Phone [...] [address] | | | | | [address], [place] | [place], [place] | | | | | [address] | [address] | | | | | [phone] | | | +--------+--------+ + + + [...]
--- OUTSIDE RECORDS SUMMARY | ~2020-07-30 | XMS | Encounter Summary ---
Demographics + + + | Address | [address] | | | [place] [address] | + + + | Home Phone [...] Team Providers + +------+ + | Care Primer Inserting Machine Adjuster Name | Role | Phone | [...] [address] | | | | | | [place], [place] | | | | | | [address] | | | +--------+ + + + [...]
--- OUTSIDE RECORDS SUMMARY | ~2020-07-30 | XMS | Encounter Summary ---
Demographics + + + | Address | [address] | | | [place] [address] | + + + | Home Phone [...] + | [employer] | ECON | [phone] | | | | | Unknown | | + + + + + Care Team Providers + +------+ + | Care Clinical Neuropsychologist Name | Role | Phone | + [...] | [address] [place], [place] | [place] [address] | | | | | [address] | [phone] | | | | | [phone] | | | +--------+ + + + [...]
--- OUTSIDE RECORDS SUMMARY | ~2020-07-30 | XMS | Encounter Summary ---
Demographics + + + | Address | [address] | | | [place] [address] | + + + | Home Phone [...] + | [employer] | ECON | [phone] | | | | | Unknown | | + + + + + Care Team Providers + +------+ + | Care Electronic Resources Librarian Name | Role | Phone | [...] [place] | | | | | [address] | [address] | | | | | [phone] | [phone] | | | | | | | [...]
--- OUTSIDE RECORDS SUMMARY | ~2020-07-30 | XMS | Encounter Summary ---
Demographics + + + | Address | [address] | | | [place] [address] | + + + | Home Phone [...] + | [employer] | ECON | [id number] | | | | | Unknown | | + + + + + Care Team Providers + +------+ + | Care Color Adviser Name | Role | Phone | [...] | | | ABDIRASHID BROTHERS | [facility] [place] | | | | | [place] | [address] | | | | | [address] | [phone] | | | | | [phone] | | | +--------+ + + + [...]
--- OUTSIDE RECORDS SUMMARY | ~2020-07-30 | XMS | Encounter Summary ---
Demographics + + + | Address | [address] | | | [place] [address] | + + + | Home Phone [...] + | [employer] | ECON | [phone] | | | | | Unknown | | + + + + + Care Team Providers + +------+ + | Care Glass Furnace Tender Name | Role | Phone | [...] | hypertension (HCC) | | | | [place], | | | | | | [place] [address] | | | | | | [phone] | | | +--------+ + + + [...]
--- OUTSIDE RECORDS SUMMARY | ~2020-07-30 | XMS | Encounter Summary ---
Demographics + + + | Address | [address] | | | [place] [address] | + + + | Home Phone | | + + + | Preferred Language | Unknown | + + + | Marital Status | Single | + + + | Quaker Affiliation | NRP | + + + | Race | White | + + + | Ethnic Group | Not or | + + + Author + + + | Author | [facility] | + + + | Organization | [facility] | + + + | Address | Unknown | + + + | Phone | Unavailable | + + + Support + + +---------+ + | Name | Relationship | Address | Phone | + + +---------+ + | Lidia Thibodeaux | ECON | Unknown | | + + +---------+ + Care Team Providers + +------+ + | Care Pararescue Manager Name | Role | Phone | [...] [address] | | | | | | [place], [place] | | | | | | [address] | | | +--------+ + + + [...]
--- OUTSIDE RECORDS SUMMARY | ~2020-07-30 | XMS | Encounter Summary ---
Demographics + + + | Address | [address] | | | [place] [address] | + + + | Home Phone [...] + | [employer] | ECON | [id number] | | | | | Unknown | | + + + + + Care Team Providers + +------+ + | Care Vascular Specialists Name | Role | Phone | + +------+ + | Gela Trimble NP | PCP | | + +------+ + Encounter Details +--------+ + + + + | Date | Type | Department | Care Team | Description | +--------+ + + + + | 07/04/ | Hospital | [facility] | Offenstein, | Pulmonary | | 2012 | Encounter | MED CTR GENERIC OP | Vera Farrar MD | hypertension (HCC) | | | | CONV DEPT [address] | | | | | | [place], | | | | | | [place] [address] | | | | | | [phone] | | | +--------+ + + + [...] | + + + +---------+--------+ + | Nice-3 Fatty | Take by mouth. | | [...] 07/04/2013 | + +------+--------+ + + | SUBMERSIBLE PILOT Ab, IgG | Lab | Routin | [...] [place] | | | | | | [address] CLIA: | | | | | | [id number] | | | | + + + + + + + + | Specimen | + + | | + + + + + + + | Performing | Address | City/State/Zipcode | Phone Number | | Organization | | | | + + + + + | [facility] | [address] | [place] | [phone] | | [facility] | | [address] | | | - LABORATORY | | | | + + + + + | [facility] | [address] | [place], [place] | | | [facility] | | [address], [facility] | | | - LABORATORY [...] | | MEDICAL | | | | [place] [address] | | CENTER - | | | | CLIA: [id number] | | LABORATORY | | + + + + + + + + | Specimen | + + | | + + + + + + + | Performing | Address | City/State/Zipcode | Phone Number | | Organization | | | | + + + + + | [facility] | [address] | [place], [place] | [phone] | | [facility] | | [address] | | | - LABORATORY | | | | + + + + + | [facility] | [address] | [place], [place] | | | [facility] | | [address], [facility] | | | - LABORATORY [...] | Autoantibod | Testing Performed: | | [facility] | | | y | [facility], [address], | | MEDICAL | | | | [place] [address] | | CENTER - | | | | CLIA: [id number] | | LABORATORY | | + + + + + + + + | Specimen | + + | | + + + + + + + | Performing | Address | City/State/Zipcode | Phone Number | | Organization | | | | + + + + + | [facility] | [address] | [place] | [phone] | | [facility] | | [address] | | | - LABORATORY | | | | + + + + + | [facility] | [address] | [place] | | | [facility] | | [address], [facility] | | | - LABORATORY [...] | Autoantibod | Testing Performed: | | [facility] | | | y | [facility], [address], | | MEDICAL | | | | [place] [address] | | CENTER - | | | | CLIA: [id number] | | LABORATORY | | + + + + + + + + | Specimen | + + | | + + + + + + + | Performing | Address | City/State/Zipcode | Phone Number | | Organization | | | | + + + + + | [facility] | [address] | [place], [place] | [phone] | | [facility] | | [address] | | | - LABORATORY | | | | + + + + + | [facility] | [address] | [place], [place] | | | [facility] | | [address] | | | - [...] [facility], [address], | | [place] - | | | | [place] [address] | | LABORATORY | | | | CLIA: [id number] | | | | + + + + + + + + | Specimen | + + | | + + + + + + + | Performing | Address | City/State/Zipcode | Phone Number | | Organization | | | | + + + + + | [facility] | [address] | [place] | [phone] | | [facility] | | [address] | | | - LABORATORY | | | | + + + + + | [facility] | [address] | [place], [place] | | | [facility] | | [address], [facility] | | | - LABORATORY [...] MEDICAL | | | | [place] [address] | | CENTER - | | | | CLIA: [id number] | | LABORATORY | | + + + + + + | SUBMERSIBLE PILOT | 0.4Comment: Negative | <1.0 AI | [facility] | | | Autoantibod | Testing Performed: | | [facility] | | | y | [place], | | MEDICAL | | | | [place] [address] | | CENTER - | | | | CLIA: [id number] | | LABORATORY | | + + + + + + | SMRNP | <0.2Comment: Negative | <1.0 AI | [facility] | | | Autoantibod | Testing Performed: | | [facility] | | | y | [facility], [address], | | MEDICAL | | | | [place] [address] | | CENTER - | | | | YANG: [id number] | | LABORATORY | | + + + + + + + + | Specimen | + + | | + + + + + + + | Performing | Address | City/State/Zipcode | Phone Number | | Organization | | | | + + + + + | [facility] | [address] | [place] | [phone] | | [facility] | | [address] | | | - LABORATORY | | | | + + + + + | [facility] | [address] | [place], [place] | | | [facility] | | [address], [facility] | | | - LABORATORY [...] REFERENCE | 1.5 - 8.1 U/L | [facility] | | | | INTERVAL: Aldolase | | [facility] | | | | Access complete set of | | MEDICAL | | | | age- and/or | | CENTER - | | | | gender-specific | | LABORATORY | | | | reference intervals | | | | | | for this test in the | | | | | | [facility] Test | | | | | | Directory ([employer]). | | | | | | Testing Performed: | | | | | | [facility], [address], | | | | | | [place], [place] | | | | | | [address] CLIA: | | | | | | [id number] | | | | + + + + + + + + | Specimen | + + | | + + + + + + + | Performing | Address | City/State/Zipcode | Phone Number | | Organization | | | | + + + + + | [facility] | [address] | [place], [place] | [phone] | | [facility] | | [address] | | | - LABORATORY | | | | + + + + + | [facility] | [address] | [place], [place] | | | [facility] | | [address] | | | - [...] | Performed: [place], [address] | | [facility] | | | | [place] | | MEDICAL | | | | [address] CLIA: [id number] | | CENTER - | | | | | | LABORATORY | | + + + + + + + + | Specimen | + + | | + + + + + + + | Performing | Address | City/State/Zipcode | Phone Number | | Organization | | | | + + + + + | [facility] | [address] | [place], [place] | [phone] | | [facility] | | [address] | | | - LABORATORY | | | | + + + + + | [facility] | [address] | [place], [place] | | | [facility] | | [address] | | | - LABORATORY | | [...] [address] | [place] | [phone] | | [facility] | | [address] | | | - LABORATORY | | | | + + + + + | [facility] | [address] | [place] | | | [facility] | | [address], [facility] | | | - LABORATORY [...] | | MEDICAL | | | | [id number]: [id number] | | CENTER - | | | [...] + | [facility] | [address] | [place], [place] | [phone] | | [facility] | | [id number] | | | - LABORATORY | | | | + + + + + | [facility] | [address] | [place], [place] | | | [facility] | | [phone], [facility] | | | - LABORATORY [...] + | [facility] | [address] | [place], [place] | [phone] | | [facility] | | [phone] | | | - LABORATORY | | | | + + + + + | [facility] | [address] | [place], [place] | | | [facility] | | [id number] | | | - LABORATORY | | | | + + + + + documented in this encounter Visit Diagnoses + + | Diagnosis | + + | Pulmonary hypertension (HCC) Other chronic pulmonary heart diseases | + + documented in this encounter"
--- OUTSIDE RECORDS SUMMARY | ~2020-07-30 | XMS | Encounter Summary ---
Demographics + + + | Address | [address] | | | [place] [address] | + + + | Home Phone [...] + | [employer] | ECON | [phone] | | | | | Unknown | | + + + + + Care Team Providers + +------+ + | Care Dental Laboratory Technology Teacher Name | Role | Phone | + +------+ + | Gela Trimble NP | PCP | | + +------+ + Encounter Details +--------+ + + + + | Date | Type | Department | Care Team | Description | +--------+ + + + + | 12/12/ | [facility] | [facility] | Jacky Calderon PA | | | 2013 | Encounter | MED CTR SLEEP | [address] | | | | | CENTER [address] | [place] | | | | | [place] | [address] | | | | | [address] | | | | | | [phone] | | | +--------+ + + + [...] | | | | | | | ([facility]) | | | | | | [...] + + + +---------+ + + | [place] Starch POWD | by Does not apply [...] + + + +---------+ + + | [place]-3 Fatty | Take by mouth. | | [...]
--- OUTSIDE RECORDS SUMMARY | ~2020-07-30 | XMS | Encounter Summary ---
Demographics + + + | Address | [address] | | | [place] [address] | + + + | Home Phone [...] Organization | [facility] | | | and [place] | + + + | Address | Unknown | + + + | Phone | Unavailable | + + + Support + + + + + | Name | Relationship | Address | Phone | + + + + + | [employer] | ECON | [phone] | | | | | Unknown | | + + + + + Care Team Providers + +------+ + | Care Mobile Home Park Manager Name | Role | Phone | + +------+ + | Gela Trimble NP | PCP | | + +------+ + Encounter Details +--------+ + + + + | Date | Type | Department | Care Team | Description | +--------+ + + + + | 12/12/ | [facility] | [facility] | Jacky Calderon PA | | | 2013 | Encounter | MED CTR SLEEP | [address] | | | | | CENTER [address] | [place] | | | | | [place] | [address] | | | | | [address] | | | | | | [phone] | | | +--------+ + + + [...] | | | | | | | ([facility]) | | | | | [...] + + + +---------+ + + | [place] Starch POWD | by Does not apply [...] + + + +---------+ + + | [place]-3 Fatty | Take by mouth. | | [...]
--- OUTSIDE RECORDS SUMMARY | ~2020-07-30 | XMS | Encounter Summary ---
Demographics + + + | Address | [address] | | | [place] [address] | + + + | Home Phone [...] + | [employer] | ECON | [phone] | | | | | Unknown | | + + + + + Care Team Providers + +------+ + | Care Load Dispatcher Local Name | Role | Phone | + +------+ + | Gela Trimbel NP | PCP | | + +------+ [...] [address] | | | | | ([facility]) | MD [address] | | | | | | [address] | [address] | | | | | | [place], | [place], [place] | | | | | | [place] [address] | [address] Phone: | | | | | | | [phone] | | | | | | | Fax: | | | | | | | [phone] | +--------+ + + + + + [...] | | MD [address] | | | | | [address] | [place], | | | | | | [place], | [place] [address] | | | | | | [place] [address] | Phone: | | | | | | | [phone] | | | | | | | Fax: | | | | | | | [phone] | +--------+ + + + + + [...] [address] | | | | | ([facility]) | [address] | | | | | | [address] | [address] | | | | | | [place], | [place], [place] | | | | | | [place] [address] | [address] Phone: | | | | | | | [phone] | | | | | | | Fax: | | | | | | | [phone] | +--------+ + + + + + Encounter Details +--------+---------+ + + + | Date | Type | Department | Care Team | Description | +--------+---------+ + + + | 07/04/ | Office | [facility] | Offenstein, | Pulmonary | | 2012 | Visit | PULMONARY [address] | Vera Farrar MD | hypertension (HCC) | | | | [place], | | (Primary Dx); [place] | | | | [place] [address] | | (obstructive sleep | | | | [phone] | | apnea); Hypoxemia; | | | | | | COPD (chronic | | | | | | obstructive | | | | | | pulmonary disease) | | | | | | ([facility]); Congestive | | | | | | heart failure with | | | | | | LV diastolic | | | | | | dysfunction, NYHA | | | | | | class 3 ([facility]); | | | | | [...] original. Pulmonary Consult Note Vera Lainez MD [facility] [address], [address] Referring Provider: Gela Augustin Amrik is a [...] and chest pain. She was taken to [facility] and underwent evaluation there. She does not [...] pre hospitalization work up either. While at [facility], she had a right heart cath done. [...] factors for HIV. She was tested at [facility] as well. Past Medical History Past Medical [...] Years of Education: N/A Occupational History Disabled. [employer] Social History Main Topics Smoking status: Former Smoker -- 1.0 packs/day for 20 years Types: Cigarettes Quit date: 05/14/2013 Smokeless tobacco: None Alcohol Use: Yes history of abuse Drug Use: Yes Special: Cocaine history of cocaine use Sexually Active: None Other Topics Concern None Social History Narrative Lives at [place]. Allergies: Allergies Allergen Reactions Erythromycin Metronidazole Penicillins [...] Place 1 applicator vaginally 2 times daily. [place]-3 Fatty Acids (SEA-OMEGA 30) 1200 MG CAPS [...] pressure of 18/14cm H2O. Echocardiogram done at [facility] on May 02, 2013 was reviewed in [...] were performed on May 07, 2013 at [facility] in the pulmonary function l ab and [...] were reviewed in clinic today. Records from [facility] are reviewed in clinic today. Assessment 1. [...] to them, but she was at a long term in the interim. I am going to have her see a pulmonary hypertension specialist (Dr. Rivera, [facility])to dec deb on most appropriate medication, though [...] iPAP. She had an overnight oximetry at [facility] (I think on 2L?) which showed good [...] ordered today. 7.See pulmonary hypertension specialist in [place], Dr. Rivera to address question of medi [...] made to ensure accuracy; however, inadvertent computerized trains service conductor errors may be pre sent. documented in t his encounter Miscellaneous Notes Miscellaneous - ONBASE SCAN WAAR - 07/04/2013 12:00 AM PDT iscellaneous - ONBASE SCAN WAMT - 07/04/2013 12:00 AM PDTEle ctronically signed by Thor Castro at 07/30/2013 3:55 PM PDTMiscellaneous - ONBASE SCAN [facility] T - 07/04/2013 12:00 AM PDT d [...] | + + +--------+ + + | RISK MGR Ab, IgG | Lab | Routin | [...] | | | | [address] [place] | | MEDICAL | | | | [id number]: [id number] | | CENTER - | | | [...] [address] | [place] | [phone] | | [facility] | | [address] | | | - LABORATORY | | | | + + + + + | [address] | [address] | [place] | | | [facility] | | [address], [facility] | | | - LABORATORY [...] + | [facility] | [address] | [place] | [phone] | | [facility] | | [address] | | | - LABORATORY | | | | + + + + + | [facility] | [address] | [place], [place] | | | [facility] | | [address], [facility] | | | - LABORATORY [...]
--- OUTSIDE RECORDS SUMMARY | ~2020-07-30 | XMS | Encounter Summary ---
Demographics + + + | Address | [address] | | | [place] [address] | + + + | Home Phone [...] + | [employer] | ECON | [phone] | | | | | Unknown | | + + + + + Care Team Providers + +------+ + | Care Tin Flopper Name | Role | Phone | + +------+ + | Gela Trimble NP | PCP | | + +------+ + Reason for Visit +--------+--------+ + | Reason | Onset | Comments | | | Date | | +--------+--------+ + | Other | 07/23/ | O2 | | | 2012 | | +--------+--------+ + Encounter Details +--------+ + + + + | Date | Type | Department | Care Team | Description | +--------+ + + + + | 07/23/ | Telephone | [facility] | Tarah Nino, | Other (O2) | | 2012 | | PULMONARY [address] | RN | | | | | [place], | | | | | | [place] [address] | | | | | | [phone] | | | +--------+ + + + [...] Telephone Encounter - Tarah Nino RN - 07/23/2013 4:34 PM PDTRelayed this message sotero Ortiz. She stated that she did have the order but wanted to confirm. elephone Encounter - Vera Lainez MD - 07/23/2013 2:51 PM PDTYes, I asked that this be sent over to them as an order when placed. elepho ne Encounter - Tarah Nino RN - 07/23/2013 2:30 PM PDTRemick-nurse from [facility] called to clarify that the O2 with exertion should be increased to 4 l/m given Margarita ksaper s COPD. documented in this encounter Plan of Treatment Not on filedocumented as of this encounter Visit Diagnoses Not on filedocumented in this encounter"
--- OUTSIDE RECORDS SUMMARY | ~2020-07-30 | XMS | Encounter Summary ---
Demographics + + + | Address | [address] | | | [place] [address] | + + + | Home Phone [...] + | [employer] | ECON | [id number] | | | | | Unknown | | + + + + + Care Team Providers + +------+ + | Care Geothermal Plant Manager Name | Role | Phone | [...] Farrar MD | | | | | [place], | | | | | | [place] [address] | | | | | | [phone] | | | +--------+--------+ + + + [...]
--- OUTSIDE RECORDS SUMMARY | ~2020-07-30 | XMS | Encounter Summary ---
Demographics + + + | Address | [address] | | | [place] [address] | + + + | Home Phone [...] Organization | [facility] | | | and [place] | + + + | Address | Unknown | + + + | Phone | Unavailable | + + + Support + + + + + | Name | Relationship | Address | Phone | + + + + + | [employer] | ECON | [id number] | | | | | Unknown | | + + + + + Care Team Providers + +------+ + | Care Magnetic Prospecting Supervisor Name | Role | Phone | [...] | | | Hypoxemia | [place] | [address] Phone: | | | | | Procedures | [address] | [phone] | | | | | F/U APPT | Phone: | Fax: | | | | | [facility] | [phone] | [phone] | | | | | 01/29/2020 | Fax: | | | | | | | [phone] | | + +--------+ + + + + Encounter Details +--------+---------+ + + + | Date | Type | Department | Care Team | Description | +--------+---------+ + + + | 04/16/ | Office | [facility] | Baudilio Helen | Primary pulmonary | | 2020 | Visit | PULMONARY [address] | MD Vikash [address] | hypertension (HCC) | | | | [place], | [address] [place] | (Primary Dx); | | | | [place] [address] | [place] [address] | Chronic obstructive | | | | [phone] | [phone] | pulmonary disease, | | | | [...] is followed by Dr. Lashae Rivera, at [facility] in [place], [place] for pulmona ry HTN. - Patient recently admitted to hospital 01/31 to 02/19/[address] [facility] for ARDS secondar y to Metapneumovirus pneumonia [...] since her hosp italization in 01/[address] [facility]. - She has been prescribed to do [...] with Bipap. - She lives in a senior living. She is able to feed herself and [...] Plan: 1. Primary pulmonary hypertension (HCC) [facility] 2. Chronic obstructive pulmonary disease, unspecified COPD type (HCC) [facility] 3. Chronic hypoxemic respiratory failure (HCC) [...] | | | [facility] | | | | | |EXERCISE OXIMETRY: [...] PM | | |PDT | | |[facility] | | + + + documented in [...]
--- OUTSIDE RECORDS SUMMARY | ~2020-07-30 | XMS | Clinical Summary ---
Demographics + + + | Address | [address] | | | [place] [address] | + + + | Home Phone [...] + | [employer] | ECON | [id number] | | | | | Unknown | | + + + + + Care Team Providers + +------+ + | Care Director Media Name | Role | Phone | [...] | + + + +---+------+---+-------+ | [place]STATIN [id number] | as needed | | 0 | [...] + + + + | Overview: Overview: [facility] 05/10/13: RV 109/22PA 105/47 Mean PA | | 63Wedge mean 10Overview: -[facility] 04/2013 [facility]: FindingsBASELINE on 2L | [...] & Plan: -echocardiogram at local | | hospital-[facility]. We will talk by phone with | | the results.-keep up the good work with walking, BIPAP use, | | oxygen use, and no smoking. -continue with your yearly flu | | vaccine.-you should have a f/u appointment with your new | | bariatric program coordinator sometime in the next 6 months. -you [...] Walk at next visit. | | Overview: -[facility] 04/2013 [facility]: FindingsBASELINE on 2L O2RA: [...] & Plan: -echocardiogram at local | | hospital-[facility] in [place]. We will talk by phone with | | the results.-keep up the good work with walking, BIPAP use, | | oxygen use, and no smoking. -continue with your yearly flu | | vaccine.-you should have a f/u appointment with your new | | bariatric program coordinator sometime in the next 6 months. -you [...] Walk at next visit. | |Overview: | |-[facility] 04/2013 [facility]: Findings | |BASELINE on 2L [...] |Last Assessment & Plan: | |-echocardiogram at [facility] in [place]. We will talk by phone with t he results. | |-keep up the good work with walking, BIPAP use, oxygen use, and no smoking. | |-continue with your yearly flu vaccine. | |-you should have a f/u appointment with your new bariatric program coordinator sometime in the next 6 month s. [...] | | | | | | type ([facility]) (Primary | | | | | | Dx); Primary | | | | | | pulmonary | | | | | | hypertension ([facility]); | | | | | | Chronic hypoxemic | | | | | | respiratory failure | | | | | | ([facility]); Dyspnea on | | | | | | exertion | +--------+ + + + + | 07/23/ | Hospital | Pulmonology | Helen Astudillo | Primary pulmonary | | 2019 | Encounter | | MD Vikash | hypertension ([facility]); | | | | | | Chronic obstructive | | | | | | pulmonary disease, | | | | | | unspecified COPD | | | | | | type ([facility]) | +--------+ + + + + | [...] Left: | [place] | | 09/04/ | [id number] | | 23.5 - [id number]: | c | Eye | MEDICAL | | 2021 | [id number] | | Qty: 1 on 05/08/2020 by | | | [employer] - | | | /[id number] | | Angel Garcia MD at | | | [place] | | | [id number] | | [facility] | | | | | | / | | [facility] | | | | | | | + +--------+--------+ +--------+--------+--------+ | Lens Tecnis Preloaded Pcb | Generi | Right: | [place] | | 01/06/ | [id number] | | 23.0 - [id number]: | c | Eye | MEDICAL | | 2022 | 0230 | | Qty: 1 on 05/22/2020 by | | | [employer] - | | | /[id number] | | Angel Garcia MD at | | | [place] | | | [id number] | | [facility] | | | | | | / | | [facility] | | | | | [...] Needs | | | | | | Powder Operator | | | al | | [...] MD, | | | 07/23/2020 3:05 PM [facility] | | | | | [...] 3:05 PM | | |PDT | | |[facility] | | + + + PATHOLOGY - [...] | [employer] | MODA | [id number] | 04/30/20 | [phone] | | Medica | | MEDICAID HMO [...] | | al/Fam | | 1965 | [phone] | [place] | | | jammie | | | 5 (Home) | [phone] | + +--------+ +--------+ + + Advance Directives + + + + + | Type | Date Recorded | Patient | Explanation | | | | Data Processing Specialist | | + + + + + | Power of | | | | | Equity Research Analyst | | | | + + + [...]
--- OUTSIDE RECORDS SUMMARY | ~2020-07-30 | XMS | Encounter Summary ---
Demographics + + + | Address | [address] | | | [place] [address] | + + + | Home Phone [...] + | [employer] | ECON | [phone] | | | | | Unknown | | + + + + + Care Team Providers + +------+ + | Care Aboriginal Liaison Officer Name | Role | Phone | [...] S | Dx) | | | | Maria [address] [place], | [place] [address] | | | | | [place] [address] | [phone] | | | | | [phone] | | | +--------+ + + + [...] on filedocumented as of this encounter Results XR Chest PA and Lateral (02/01/2017 11:13 AM PDT) + + | Specimen | + + | | + + + + + | Narrative | Performed At | + + + | CLINICAL INFORMATION: Nodular density, solitary pulmonary nodule | [facility] | | COMPARISON: 07/10/2015. FINDINGS: Frontal and lateral views of | . ARACELI | | the chest. Lungs: No [...] ST. | [address] | [place] | [phone] | | [facility] | | [address] | | | - IMAGING | | | | + + + + + documented in this encounter Visit Diagnoses + + | Diagnosis | + + | Lung nodule - Primary Solitary pulmonary nodule | + + documented in this encounter"
--- OUTSIDE RECORDS SUMMARY | ~2020-07-30 | XMS | Encounter Summary ---
Demographics + + + | Address | [address] | | | [place] [address] | + + + | Home Phone [...] Team Providers + +------+ + | Care Aids Nurse Name | Role | Phone | [...] Pavilion | | | | | | [address] | | | | | | [facility] | | | | | | [place], [address] [place] [address] | | | | | | [place], [place] | | | | | | [address] | | | | | | [phone] | | | +--------+ + + + [...] istratively closed with the authorization of the [facility] Committee. documented in this encounter Plan of Treatment Not on filedocumented as of this encounter Visit Diagnoses Not on filedocumented in this encounter"
--- OUTSIDE RECORDS SUMMARY | ~2020-07-30 | XMS | Encounter Summary ---
Demographics + + + | Address | [address] | | | [place] [address] | + + + | Home Phone [...] + | [employer] | ECON | [phone] | | | | | Unknown | | + + + + + Care Team Providers + +------+ + | Care Shower Attendant Name | Role | Phone | [...] | | | | | pharyngeal | REAL ESTATE ASSESSOR [address] | REAL ESTATE ASSESSOR [address] | | | | | phase | [address] | [address] | | | | | Procedures | [place], | [address] | | | | | Office Visit | [place] [address] | [place], | | | | | | Phone: | [place] [address] | | | | | | [phone] | Phone: | | | | | | Fax: | [phone] | | | | | | [phone] | Fax: | | | | | | | [phone] | +--------+--------+ + + + + Encounter [...] dysphagia (Primary | | | | [address], [place] | [place], [place] | Dx); Chronic | | | | [address] | [address] | obstructive | | | | [phone] | | pulmonary disease, | | | | | | unspecified COPD | | | | | | type (HCC); | | | | | | Developmental delay; | | | | | | [place] (obstructive | | | | | | sleep apnea); | | | | | | Seizure disorder | | | | | | ([facility]) | +--------+---------+ + + + Social History [...] HEALTHCARE) moderate, FEV1 1.40 (59%) Pulmonary hypertension (HCC) [...] Years of Education: N/A Occupational History Disabled. [employer] Social History Main Topics Smoking status: Former Smoker -- 1.00 packs/day for 20 years Types: Cigarettes Quit date: 12/15/2015 Smokeless tobacco: Never Used Comment: Smoking a cigarette every 2 hours Alcohol Use: No Drug Use: No Sexual Activity: Not on file Other Topics Concern Not on file Social History Narrative Lives at [employer]. Review of systems: Constitutional:Denies any fevers, chills, [...] prescribed. Discussed that if PPI is used long-term, Calcium an d Vitamin D should be [...]
--- OUTSIDE RECORDS SUMMARY | ~2020-07-30 | XMS | Encounter Summary ---
Demographics + + + | Address | [address] | | | [place] [address] | + + + | Home Phone | | + + + | Preferred Language | Unknown | + + + | Marital Status | Single | + + + | Adventist Affiliation | NRP | + + + | Race | White | + + + | Ethnic Group | Not or | + + + Author + + + | Author | [facility] | + + + | Organization | [facility] | + + + | Address | Unknown | + + + | Phone | Unavailable | + + + Support + + +---------+ + | Name | Relationship | Address | Phone | + + +---------+ + | Lidia Thibodeaux | ECON | Unknown | | + + +---------+ + Care Team Providers + +------+ + | Care Dry Room Attendant Name | Role | Phone | [...] | | | Medicine at | [facility], | | | | | [facility] | [place] [address] | | | | | [address] | [phone] | | | | | [facility] | | | | | | Pavilion, 3rd Floor | | | | | | [place], [place] | | | | | | [address] | | | | | | [phone] | | | +--------+ + + + [...] spoke with Dr. Chapo Costello DO at [facility] in [facility]. Ms. Rowley is a 54-year-old lady wi th known pulmonary artery hypertension who gets healthcare through [facility] for pulmo nary artery hypertension and was last seen in August 2019. She presented to [facility] with three days history of cold [...] pneumonia as well as oseltamivir. Patients B ELASTIC ATTACHER CHAINSTITCH level was 83. abg 7.43, 45, 62 on 70% of FIO2 and CPAP. They are going to diurese patient . I requested that Dr. Costello get in touch with [facility] to see if they would acc ept [...]
--- OUTSIDE RECORDS SUMMARY | ~2020-07-30 | XMS | Encounter Summary ---
Demographics + + + | Address | [address] | | | [place] [address] | + + + | Home Phone [...] + + + | Author | [facility] | + + + | Organization | [facility] | + + + | Address | Unknown | + + + | Phone | Unavailable | + + + Support + + +---------+ + | Name | Relationship | Address | Phone | + + +---------+ + | Lidia Thibodeaux | ECON | Unknown | | + + +---------+ + Care Team Providers + +------+ + | Care Linux Systems Analyst Name | Role | Phone | [...] Pavilion | | | | | | [address] | | | | | | [facility] | | | | | | [place], [address] [place] [address] | | | | | | [place], [place] | | | | | | [address] | | | | | | [phone] | | | +--------+ + + + [...] istratively closed with the authorization of the [facility] Committee. documented in this encounter Plan of Treatment Not on filedocumented as of this encounter Visit Diagnoses Not on filedocumented in this encounter"
--- OUTSIDE RECORDS SUMMARY | ~2020-07-30 | XMS | Encounter Summary ---
Demographics + + + | Address | [address] | | | [place] [address] | + + + | Home Phone [...] + | [employer] | ECON | [phone] | | | | | Unknown | | + + + + + Care Team Providers + +------+ + | Care Boiler Control Technician Name | Role | Phone | [...] + + | 12/26/ | Office | [facility] | Jacky Calderon PA | Primary central | | 2014 | Visit | SLEEP DISORDER [address] | [address] | sleep apnea (Primary | | | | [address] [place] | [place] | Dx) | | | | [place] [address] | [address] | | | | | [phone] | | | +--------+---------+ + + + [...] was: 11/20/2013 date of polysomnography: 03/13/2013 at [facility] AHI: 64.2 O2%: n/a Machine type: Respironics BiPAP Auto with ResMed Quattro FX full face mask obtained from: [facility] pressure: 19/5 cm Nights using BiPAP: [...] a prescription to [facility] in [place] for a change in her pressure s etting to 16/5 cm with backup rate of 8 and 5 L/min oxygen bled into the circuitry. She is to continue with BiPAP at these settings. I will follow up with her in 1 month, sooner prn. Thirty minutes were spent [id number], with the majority of time spent in counseling. Jacky Calderon PA-C cc: BRUCE Beal MD documented in this enco unter Miscellaneous Notes Miscellaneous - ALBA LINDER - 12/26/2013 12:00 AM PST documented in this encounter Plan of Treatment Not on filedocumented as of this encounter Visit Diagnoses + + | Diagnosis | + + | Primary central sleep apnea - Primary | + + documented in this encounter"
--- OUTSIDE RECORDS SUMMARY | ~2020-07-30 | XMS | Encounter Summary ---
Demographics + + + | Address | [address] | | | [place] [address] | + + + | Home Phone [...] + | [employer] | ECON | [id number] | | | | | Unknown | | + + + + + Care Team Providers + +------+ + | Care Canteen Manager Name | Role | Phone | [...] [address] | | | | | [address], [place] | [place], [place] | | | | | [address] | [address] | | | | | [phone] | | | +--------+--------+ + + + [...]
--- OUTSIDE RECORDS SUMMARY | ~2020-07-30 | XMS | Encounter Summary ---
Demographics + + + | Address | [address] | | | [place] [address] | + + + | Home Phone [...] + | [employer] | ECON | [phone] | | | | | Unknown | | + + + + + Care Team Providers + +------+ + | Care Assembler Trim Name | Role | Phone | + +------+ + | Yuni Shrestha | PCP | | + +------+ + Encounter Details +--------+ + + + + | Date | Type | Department | Care Team | Description | +--------+ + + + + | 02/01/ | Hospital | [facility] | Scout Arthur, | Lung nodule | | 2017 | Encounter | MED CTR XRAY [address] | [address] | | | | | [place] | [place] [address] | | | | | [place] [address] | [phone] | | | | | [phone] | | | +--------+ + + + [...] + + + +---------+ + + | Rufus Starch POWD | by Does not apply [...] Note | + + | Gabriel Zafar Results In - 02/01/2017 1:49 PM PDT [...] ST. | [address] | [place] | [phone] | | [facility] | | [address] | | | - IMAGING | | | | + + + + + documented in this encounter Visit Diagnoses + + | Diagnosis | + + | Lung nodule Solitary pulmonary nodule | + + documented in this encounter"
--- OUTSIDE RECORDS SUMMARY | ~2020-07-30 | XMS | Encounter Summary ---
Demographics + + + | Address | [address] | | | [place] [address] | + + + | Home Phone [...] + | [employer] | ECON | [id number] | | | | | Unknown | | + + + + + Care Team Providers + +------+ + | Care Ticket Manager Name | Role | Phone | + +------+ + | Yuni Shrestha | PCP | | + +------+ + Encounter Details +--------+ + + + + | Date | Type | Department | Care Team | Description | +--------+ + + + + | 06/30/ | Abstract | [facility] [place] | [facility], | | | 2015 | | GASTROENTEROLOGY | BRITTANY Maddox [address] | | | | | [address] [place] | [address] | | | | | [address] [place], [place] | [place], [place] | | | | | [address] | [address] | | | | | [phone] | | | +--------+ + + + [...] | EXTERNAL LAB: NHUNG | Routin | 06/08/2016 | | Results for this | | | e | | | procedure are in the | | | | | | results section. | + +--------+ + + + | EXTERNAL LAB: JOSIAH | Dotty | 06/08/2016 | | Results for this | | | e | | | procedure are in the | | | | | | results section. | + +--------+ + + + | EXTERNAL LAB: KAREN | Routin | 06/08/2016 | | Results [...] | EXTERNAL LAB: CBC | Routin | 01/06/2016 | | Results [...]
--- OUTSIDE RECORDS SUMMARY | ~2020-07-30 | XMS | Encounter Summary ---
Demographics + + + | Address | [address] | | | [place] [address] | + + + | Home Phone [...] + | [employer] | ECON | [phone] | | | | | Unknown | | + + + + + Care Team Providers + +------+ + | Care Employee Benefits Specialist Name | Role | Phone | [...] | | | Pulmonology | airway | SPICE BLENDER [address] | MD | | | | | obstruction, | [place] | | | | | | not | [place], | | | | | | elsewhere | [place] [address] | | | | | | classified | Phone: | | | | | | Procedures | [phone] | | | | | | F/U | Fax: | | | | | | | [phone] | | +--------+--------+ + + + + Encounter Details +--------+---------+ + + + | Date | Type | Department | Care Team | Description | +--------+---------+ + + + | 08/08/ | Office | [facility] [place] | Offenstein, | Primary pulmonary | | 2015 | Visit | PULMONARY [address] | Vera Farrar MD | hypertension | | | | [place], | | (Primary Dx); COPD | | | | [place] [address] | | (chronic obstructive | | | | [phone] | | pulmonary disease); | | | [...] to have a box delivered by the [employer]. Wear the finger probe through the night. Do the test on 5L bled in to th e BiPAP. Call the ebridge to have the box picked up the [...] follow up echocardiogram, which was done in [place] . Since their last visit she feels [...] Years of Education: N/A Occupational History Disabled. [employer] Social History Main Topics Smoking status: Current [...] Concern None Social History Narrative Lives at [facility]. Allergies: Allergies Allergen Reactions Erythromycin Metronidazole [...] TABS Take 2,000 Units by mouth Daily. [place] Starch POWD by Does not apply route [...] mg onto the skin every 24 hours. [place]-3 Fatty Acids (SEA-OMEGA 30) 1200 MG CAPS [...] echo in July with visit by local human resources office assistant. If further increase in estimated PASP by [...] made to ensure accuracy; however, inadvertent computerized gift shop manager errors may be pre sent. documented [...] [address] | [place] | [phone] | | [facility] | | [address] | | | - LABORATORY | | [...] | | | | | | [facility] | | | | | | MEDICAL [...] | 0.91 | 0.60 - 1.30 | [facility] | | | | | mg/dL | [facility] | | | | | | MEDICAL | | | | | | CENTER - | | | | | | LABORATORY | | + + + + + + | eGFR, | >60Comment: GLOMERULAR | >=60 | [facility] | | | non- | FILTRATION | mL/min/1.73m2 | [facility] | | | [place] | RATE,ESTIMATED | | MEDICAL | | | | mL/min/1.88x0Xthw than | | CENTER - | | [...] ST. | [address] | [place], [place] | [phone] | | [facility] | | [address] | | | - LABORATORY | | [...]
--- OUTSIDE RECORDS SUMMARY | ~2020-07-30 | XMS | Encounter Summary ---
Demographics + + + | Address | [address] | | | [place] [address] | + + + | Home Phone [...] + | [employer] | ECON | [id number] | | | | | Unknown | | + + + + + Care Team Providers + +------+ + | Care Community Service Manager Name | Role | Phone | [...] | | | | | | [place] [address] | | | | | | [phone] | | | +--------+ + + + [...] ST. | [address] | [place], [place] | [phone] | | [facility] | | [address] | | | - LABORATORY | | | | + + + + + documented in this encounter Visit Diagnoses Not on filedocumented in this encounter"
--- OUTSIDE RECORDS SUMMARY | ~2020-07-30 | XMS | Encounter Summary ---
Demographics + + + | Address | [address] | | | [place] [address] | + + + | Home Phone [...] + | [employer] | ECON | [phone] | | | | | Unknown | | + + + + + Care Team Providers + +------+ + | Care Beauty Consultant Name | Role | Phone | [...] | pulmonary heart | | | | [place], | | diseases (HCC) | | | | [place] [address] | | (Primary Dx); | | | | [phone] | | Chronic airway | | | [...] 06/15/2013 | | | | | diseases ([facility]) | until 06/15/2014 | | | | | Chronic airway | | | | | | obstruction, not | | | | | | elsewhere classified | | | | | | ([facility]) | | + + +--------+ + + documented as of this encounter Visit Diagnoses + + | Diagnosis | + + | Other chronic pulmonary heart diseases - Primary | + + | Chronic airway obstruction, not elsewhere classified | + + documented in this encounter"
--- OUTSIDE RECORDS SUMMARY | ~2020-07-30 | XMS | Encounter Summary ---
Demographics + + + | Address | [address] | | | [place] [address] | + + + | Home Phone [...] + | [employer] | ECON | [phone] | | | | | Unknown | | + + + + + Care Team Providers + +------+ + | Care Metal Sander And Finisher Name | Role | Phone | + +------+ + | Geal Trimble NP | PCP | | + [...] | | | Pulmonology | airway | SET UP TECHNICIAN [address] | MD | | | | | obstruction, | [place] | | | | | | not | [address] | | | | | | elsewhere | [place], | | | | | | classified | [place] [address] | | | | | | Obstructive | Phone: | | | | | | sleep apnea | [phone] | | | | | | (adult) | Fax: | | | | | | (pediatric) | [phone] | | | | | | Procedures | | | | | | | ID OFFICE | | | | | | | OUTPATIENT | | | | | | | VISIT 25 | | | | | | | MINUTES F/U | | | +--------+--------+ + + + + Encounter Details +--------+---------+ + + + | Date | Type | Department | Care Team | Description | +--------+---------+ + + + | 11/12/ | Office | [facility] | [place]enstein, | Primary pulmonary | | 2014 | Visit | PULMONARY [address] | Vrea Farrar MD | hypertension | | | | [place], | | (Primary Dx); COPD | | | | [place] [address] | | (chronic obstructive | | | | [phone] | | pulmonary disease); | | | [...] is a 49 y.o. female patient of Glea Trimble here today for follow up of [...] Years of Education: N/A Occupational History Disabled. [employer] Social History Main Topics Smoking status: Former Smoker -- 1.0 packs/day for 20 years Types: Cigarettes Quit date: 05/14/2013 Smokeless tobacco: None Alcohol Use: Yes Comment: history of abuse Drug Use: Yes Special: Cocaine Comment: history of cocaine use Sexually Active: None Other Topics Concern None Social History Narrative Lives at [facility]. Allergies: Allergies Allergen Reactions Erythromycin Metronidazole Penicillins [...] TABS Take 2,000 Units by mouth Daily. [place] Starch POWD by Does not apply route [...] tablet Take 15 mg by mouth Daily. [place]-3 Fatty Acids (SEA-OMEGA 30) 1200 MG CAPS [...] made to ensure accuracy; however, inadvertent computerized timber poisoner errors may be pre sent. documented in [...]
--- OUTSIDE RECORDS SUMMARY | ~2020-07-30 | XMS | Encounter Summary ---
Demographics + + + | Address | [address] | | | [place] [address] | + + + | Home Phone [...] | Organization | [facility] | | | and [place] | + + + | Address | Unknown | + + + | Phone | Unavailable | + + + Support + + + + + | Name | Relationship | Address | Phone | + + + + + | [employer] | ECON | [id number] | | | | | Unknown | | + + + + + Care Team Providers + +------+ + | Care Slasher Tender Helper Name | Role | Phone | [...] + + | 07/23/ | Office | [facility] | Jacky Calderon PA | Primary central | | 2016 | Visit | SLEEP DISORDER [address] | [address] | sleep apnea (Primary | | | | [address] [place] | [place], [place] | Dx) | | | | [place] [address] | [address] | | | | | [phone] | | | +--------+---------+ + + + [...] was: 05/22/2015 date of polysomnography: 03/13/2013 at [facility] AHI: 64.2 O2%: n/a Machine type: Respironics BiPAP Auto with ResMed Quattro FX full face mask obtained from: [employer] in [place] pressure: 16/5 cm with backup rate of [...] Assessment: Problem #1: PRIMARY CENTRAL SLEEP APNEA ([id number]) This is controlled with BiPAP and oxygen at 5 L/min. Her compliance is going very well. Plan: 1. She is to continue with BiPAP indefinitely. 2. She is to touch base with her medical supplier twice per year to ensure that her equipm ent is satisfactory. I will follow up with her in 1 year, sooner prn. Fifteen minutes were spent [id number]-gleb, with the majority of time spent in counseling. Jacky Calderon PA-C cc: XANDER Garvin documented in this enco unter Plan of Treatment Not on filedocumented as of this encounter Visit Diagnoses + + | Diagnosis | + + | Primary central sleep apnea - Primary | + + documented in this encounter"
--- OUTSIDE RECORDS SUMMARY | ~2020-07-30 | XMS | Encounter Summary ---
Demographics + + + | Address | [address] | | | [place] [address] | + + + | Home Phone [...] + | [employer] | ECON | [id number] | | | | | Unknown | | + + + + + Care Team Providers + +------+ + | Care Machine Design Teacher Name | Role | Phone | [...] | Primary | [place], | [address] | | | | | pulmonary | Vera B, | [place], | | | | | hypertension | MD [address] | [place] | | | | | ([facility]) | [address] | [address] | | | | | Procedures | [place], | Phone: | | | | | ECHO | [place] [address] | [phone] | | | | | Complete | | Fax: | | | | | APPT | | [phone] | | | | | 03/18/14. | [...] | Primary | Offenstein, | [address] | | | | | pulmonary | Vera B, | [place], | | | | | hypertension | MD [address] | [place] | | | | | ([facility]) | [address] | [address] | | | | | Procedures | [place], | Phone: | | | | | ECHO | [place] [address] | [phone] | | | | | Complete | | Fax: | | | | | APPT | | [phone] | | | | | 03/18/14. | | | | | | | DEFERRED T0 | | | | | | | 03/01/14 | | | +--------+--------+ + + + + Encounter Details +--------+ + + + + | Date | Type | Department | Care Team | Description | +--------+ + + + + | 03/12/ | Hospital | [facility] | Saharaenstein, | Primary pulmonary | | 2013 | Encounter | MED CTR ECHO [address] | Vera Farrar MD | hypertension | | | | [place] | [place], | | | | | [place] [address] | Technologist | | | | | [phone] | | | +--------+ + + + [...] | | | | | | | ([facility]) | | | | | [...] + + + +---------+ + + | [place] Starch POWD | by Does not apply [...] + + + +---------+ + + | [place]-3 Fatty | Take by mouth. | | [...] 08/06/20 | | | Therapy Supplies | [facility]'s office | | | 13 | 8 [...] Performed At | + + + | [facility] ECHOCARDIOGRAM REPORT | [facility] | | STUDY DATE: 03/12/2014 PATIENT NAME: Margarita Rowley : | [facility] | | 1965 PCP: Gela Trimble [facility] | | HISTORY/DIAGNOSIS: PULM HTN A [...] | | S. Ananth Salguero MD PhD [facility] 03/12/2014 8:38 | | | Periodicals Clerk: Hung Caro, RDCS, RVT, RDMS | | + + + + + | Procedure Note | + + | Roberto Salguero MD - 03/12/2014 6:05 PM PDT LOCATED WITHIN [facility] | | CENTERECHOCARDIOGRAM REPORTSTUDY DATE: 03/12/2014PATIENT NAME: Margarita Vora: | | 1965MRN: [id number]: Gela TrimbleCLINICAL HISTORY/DIAGNOSIS: PULM HTNA | | [...] | mmHgLA volume: 34 mLLA index: 18 mL/l7Iwbxtx Inflow DT: 290 msIVRT: 117 msValsalva: | | YES, TO NO EFFECTPWDTI S wave: 12.0 cm/sPWDTI E wave: 15.5 cm/sPWDTI A wave: 24.1 | | cm/sE/A Ratio: 0.643E/E Ratio: Signed by: Artie Salguero MD PhD [facility] 03/12/2014 | | 8:38 Periodicals Clerk: Hung Caro, RDCS, RVT, RDMS | |Mitral [...] | |Signed by: Artie Salguero MD PhD [facility] | | 03/12/2014 8:38 | | | | | |Periodicals Clerk: Hung Caro, JUANITOCS, RVT, RDMS | + + + + + + + | Performing | Address | City/State/[place] | Phone Number | | Organization | | | | + + + + + | [facility] | [address] | [place] | [phone] | | [facility] | | [address] | | | - IMAGING | | | | + + + + + documented in this encounter Visit Diagnoses + + | Diagnosis | + + | Primary pulmonary hypertension | + + documented in this encounter"
--- OUTSIDE RECORDS SUMMARY | ~2020-07-30 | XMS | Encounter Summary ---
Demographics + + + | Address | [address] | | | [place] [address] | + + + | Home Phone [...] | Organization | [facility] | | | and [place] | + + + | Address | Unknown | + + + | Phone | Unavailable | + + + Support + + + + + | Name | Relationship | Address | Phone | + + + + + | [employer] | ECON | [id number] | | | | | Unknown | | + + + + + Care Team Providers + +------+ + | Care Nickel Operator Name | Role | Phone | [...] | | | | | | [place] [address] | | | | | | [phone] | | | +--------+ + + + [...]
--- OUTSIDE RECORDS SUMMARY | ~2020-07-30 | XMS | Encounter Summary ---
Demographics + + + | Address | [address] | | | [place] [address] | + + + | Home Phone [...] + | [employer] | ECON | [id number] | | | | | Unknown | | + + + + + Care Team Providers + +------+ + | Care Diesel Mechanic Apprentice Name | Role | Phone | [...] | | | | | | | NM XCAPSL | | | | | | [...] Description | +--------+---------+ + + + | 05/08/ | [facility] | [facility] | Angel Garcia | Left EXTRACTION | | 2019 | | MED CTR OR INTRA OP | MD [address] | CATARACT W/ LENS | | | | [address] | [place] | IMPLANT | | | | [place] | [place] [address] | | | | | [address] | [phone] | | | | | [phone] | | | +--------+---------+ + + + [...] + + + | Blood Pressure | 114/73 | 05/08/2020 10:03 AM | | | | | PDT | | + + + + + | Pulse | 73 | 05/08/2020 10:03 AM | | | | | PDT | | + + + + + | Temperature | 36.4 C (97.5 F) | 05/08/2020 10:03 AM | | | | | PDT | | + + + + + | Respiratory Rate | 16 | 05/08/2020 10:03 AM | | | | | PDT | | + + + + + | Oxygen Saturation | 96% | 05/08/2020 10:03 AM | | | [...] You can't be awakened Fever New rash [employer] last reviewed this educational content on 08/17/201619992673-2432 [employer]. [address] [place] [address], [place] [id number]. All righ ts reserved. This information is [...] symptoms, immediately call your eye doctor or [facility] at (dial "9" after [...] + + +---------+ + + | [place]STATIN [id number] | as needed | | 0 | [...] & PHYSICAL UPDA TE Pt. Name/Age/: Margarita Lugo Amrik 54 y.o. 1965 Date of admission: 05/08/2020 [...] Garcia MD, 05/08/2020 9:32 AM PDT [facility] documented in t his encounter Miscellaneous Notes Op Note - Angel Garcia MD - 05/08/2020 9:36 AM PDTPre-op Diagnosis: Mature catar act (H25.89), left eye Post-op Diagnosis: same Procedure: Cataract extraction by phacoemulsification with intraocular lens implant with tr trell loya, left eye (14602) Implant: Costa PCB00 23.5 D, SN [id number] Surgeon: Angel Garcia MD Anesthesia: Monitored Anesthesia Care Technique/Procedure Description: After the patient's eye prepped and draped in the usual [facility] ophthalmic manner, a lid speculum was placed [...] Needs | | | | | | Machine Maintenance | | | al | | | [...] | balanced salts sterile | Given | 05/08/20 | 1 | | Surgical | | ophthalmic irrigation solution | | 20 9:45 | Applicat | | Site | | PRN, Starting [facility] 05/08/20 at 0944, | | AM PDT | ion | | | | Intra-op | | | | | | + +-------+ + +---+ + +---+---+ | | | +---+---+ + +-------+ +-------+---+ + | BSS 2.25ML + lidocaine 4% | Given | 05/08/20 | 3 mLs | | Surgical | | 0.75ML + EPINEPHrine (1:1000) 1ML | | 20 9:45 | | | Site | | one step ophthalmic solution | | AM PDT | | | | | PRN, Starting [facility] 05/08/20 at 0944, | | | | | | | Intra-op | | | | | | + +-------+ +-------+---+ + + +---+ | | | + +---+ | dextrose 50% injection 12.5-25 | | | g 12.5-25 g, Intravenous, EVERY | | | 15 MIN PRN, Low Blood Sugar, Give | | | 12.5g (25 mL) IV if blood | | | glucose 50-69 mg/dL. Give 25g | | | (50 mL) IV if blood glucose < 50, | | | Starting [facility] 05/08/20 at 0801, | | | Repeat [...] | | | + +---+ + +-------+ +-------+---+ + | hyaluronate & chondroitin | Given | 05/08/20 | 1 kit | | Surgical | | hyaluronate (DUOVISC) intraocular | | 20 9:45 | | | Site | | kit PRN, Starting [facility] 05/08/20 at | | AM PDT | | | | | 0945, Intra-op | | | | | | + +-------+ +-------+---+ + +---+---+ | | | +---+---+ + +---------+ +---+---+---+ | lactated ringers (LR) [...] | | | | after proparacaine., Starting [facility] | | | | | | | [...] lidocaine (XYLOCAINE) 2% jelly | Given | 05/08/20 | 1 | | Surgical | | (uro-jet) PRN, Starting [facility] | | 20 9:44 | Applicat | | Site | | 05/08/20 at 0944, Intra-op | | AM PDT | ion | | | + +-------+ + +---+ + +---+---+ | | | +---+---+ + +-------+ +--------+---+ + | moxifloxacin (VIGAMOX) 0.5 % | Given | 05/08/20 | 0.5 mg | | Eye-Left | | intracameral injection PRN, | | 20 9:53 | | | | | Starting [facility] 05/08/20 at 0945, | | AM PDT | | | | | Intra-op | | | | | | + +-------+ +--------+---+ + + +---+ | | | + +---+ | ondansetron (ZOFRAN) injection | | | 4 mg 4 mg, Intravenous, EVERY 4 | | | HOURS PRN, Nausea, Vomiting, | | | Starting [facility] 05/08/20 at 1009, | | | Recovery/Phase [...] | | | | | | Starting [facility] 05/08/20 at 0801, For | | | [...] +---+---+ | | | +---+---+ + +-------+ +---------+---+ + | pilocarpine (ISOPTO CARPINE) 1% | Given | 05/08/20 | 2 drops | | Surgical | | ophthalmic solution PRN, | | 20 9:53 | | | Site | | Starting [facility] 05/08/20 at 0953, | | AM PDT | | | | | Intra-op | | | | | | + +-------+ +---------+---+ + +---+---+ | | | +---+---+ + +-------+ +---------+---+ + | povidone-iodine 5 % ophthalmic | Given | 05/08/20 | 2 drops | | Surgical | | solution PRN, Starting [facility] | | 20 9:30 | | | Site | | 05/08/20 at 0932, Intra-op | | AM PDT | | | | + +-------+ +---------+---+ + +---+---+ | | | +---+---+ + +-------+ +--------+---+---+ | proparacaine (ALCAINE) 0.5% | Given | 05/08/20 | 1 drop | | | | ophthalmic solution 1 drop 1 | | 20 8:22 | | | | | drop, Left Eye, ONCE, [facility] 05/08/20 | | AM PDT | [...] | +---+---+ + +-------+ +--------+---+ + | proparacaine (ALCAINE) 0.5% | Given | 05/08/20 | 1 drop | | Surgical | | ophthalmic solution PRN, | | 20 9:30 | | | Site | | Starting [facility] 05/08/20 at 0930, | | AM PDT | | | | | Intra-op | | | | | | + +-------+ +--------+---+ + +---+---+ | | | +---+---+ + +-------+ +------+---+ + | triamcinolone acetonide | Given | 05/08/20 | 5 mg | | Surgical | | (KENALOG-10) 10 mg/mL injection | | 20 9:55 | | | Site | | PRN, Starting [facility] 05/08/20 at 0955, | | AM PDT | | | [...] | | | | | | | [facility] 05/08/20 at 0801, For 3 doses, | [...] +---+---+ | | | +---+---+ + +-------+ +---------+---+ + | trypan blue (VISION BLUE) 0.06% | Given | 05/08/20 | 2 drops | | Surgical | | ophthalmic solution PRN, | | 20 9:46 | | | Site | | Starting [facility] 05/08/20 at 0946, | | AM PDT | | | | | Intra-op | | | | | | + +-------+ +---------+---+ + +---+---+ | | | +---+---+ documented in this encounter
--- OUTSIDE RECORDS SUMMARY | ~2020-07-30 | XMS | Encounter Summary ---
Demographics + + + | Address | [address] | | | [place] [address] | + + + | Home Phone [...] + | [employer] | ECON | [phone] | | | | | Unknown | | + + + + + Care Team Providers + +------+ + | Care Operations Intern Name | Role | Phone | [...] | Telephone | [facility] [place] | [facility], | Procedure | | 2015 | | GASTROENTEROLOGY | BRITTANY Maddox [address] | | | | | [address] [place] | [address] | | | | | [address] [place], [place] | [place], [place] | | | | | [address] | [address] | | | | | [phone] | | | +--------+ + + + [...] P DTReceived letter from Dr. Rivera at [facility] indicating patient's nee d for a cardiac trained Anesthesiologist to deliver the IVCS (can not have prop) for egd/col on. She also noted that patient should not miss any of her doses of Adcirca or Letrairis. I will contact the loss prevention operations manager and anesthesia department to see how we can proceed. Johnie ically signed by Katheryn Garber RN at 07/27/2016 2:37 PM PDTTelephone Encounter - Missy Garber RN - 07/12/2016 2:12 PM PDTSpoke with MARANDA Hillman in Dr. Rivera's office at [facility] in [place]. They have been seeing the patient for [...] wait for letter then discuss case with loss prevention operations manager, Valeria Pete. Monica informed. Sirena ctronically signed by Katheryn Garber RN at 07/12/2016 2:22 PM PDTTelephone Encounter - Mirela Arthur - 07/09/2016 9:21 AM Magui Rivera's office at [facility] in [place] called and s aid that they are the patient's current pulmonary team, so the patient does not need to esta kimberly at [facility]. They would like to speak with Katheryn about possible future procedures for t he patient, colonoscopy and EGD. Please call their office back at [phone]. Electronical ly signed by Mirela Oliveros at 07/09/2016 9:25 AM PDTdocumented in this encounter Plan of Treatment Not on filedocumented as of this encounter Visit Diagnoses Not on filedocumented in this encounter"
--- OUTSIDE RECORDS SUMMARY | ~2020-07-30 | XMS | Encounter Summary ---
Demographics + + + | Address | [address] | | | [place] [address] | + + + | Home Phone [...] + | [employer] | ECON | [phone] | | | | | Unknown | | + + + + + Care Team Providers + +------+ + | Care Photoflash Powder Mixer Name | Role | Phone | + +------+ + | Gela Trimble NP | PCP | | + +------+ + Encounter Details +--------+ + + + + | Date | Type | Department | Care Team | Description | +--------+ + + + + | 07/30/ | Hospital | [facility] | [place], | | | 2012 | Encounter | MED CTR SLEEP | Vera Farrar MD | | | | | [address] | | | | | | [place] | | | | | | [address] | | | | | | [phone] | | | +--------+ + + + [...] | + + + +---------+--------+ + | [place]-3 Fatty | Take by mouth. | | [...]
--- OUTSIDE RECORDS SUMMARY | ~2020-07-30 | XMS | Encounter Summary ---
Demographics + + + | Address | [address] | | | [place] [address] | + + + | Home Phone [...] + | [employer] | ECON | [phone] | | | | | Unknown | | + + + + + Care Team Providers + +------+ + | Care Wastewater Project Engineer Name | Role | Phone | + +------+ + | Yuni Shrestha | PCP | | + +------+ + Encounter Details +--------+ + + + + | Date | Type | Department | Care Team | Description | +--------+ + + + + | 01/04/ | Orders Only | [facility] [place] | [facility], | Dysphagia | | 2016 | | GASTROENTEROLOGY | BRITTANY Maddox [address] | | | | | [address] [place] | [address] | | | | | [address] [place], [place] | [place], [place] | | | | | [address] | [address] | | | | | [phone] | | | +--------+ + + + [...]
--- OUTSIDE RECORDS SUMMARY | ~2020-07-30 | XMS | Encounter Summary ---
Demographics + + + | Address | [address] | | | [place] [address] | + + + | Home Phone [...] + | [employer] | ECON | [phone] | | | | | Unknown | | + + + + + Care Team Providers + +------+ + | Care Wire Sawyer Name | Role | Phone | + [...] [facility] [place] | [place], | Results | | 2014 | | PULMONARY [address] | Vera Farrar MD | | | | | [place], | | | | | | [place] [address] | | | | | | [phone] | | | +--------+ + + + [...] Telephone Encounter - Jia Noriega RN - 07/30/2015 2:09 PM PDTNotified caregiver Buck daniel at [facility] (patient's home number) that Dr Lainez reviewed 07/09/15 labs a nd test is negative but we need to continue monthly checks for documentation for m edication and also that chest x ray is stable that was done 07/10/15 [facility] signed by Jia Noriega RN at 07/30/2015 2:11 PM PDTdocumented in this encounte r Plan of Treatment Not on filedocumented as of this encounter Visit Diagnoses Not on filedocumented in this encounter"
--- OUTSIDE RECORDS SUMMARY | ~2020-07-30 | XMS | Encounter Summary ---
Demographics + + + | Address | [address] | | | [place] [address] | + + + | Home Phone | | + + + | Preferred Language | Unknown | + + + | Marital Status | Single | + + + | Anabaptist Affiliation | NRP | + + + | Race | White | + + + | Ethnic Group | Not or | + + + Author + + + | Author | [facility] | + + + | Organization | [facility] | + + + | Address | Unknown | + + + | Phone | Unavailable | + + + Support + + +---------+ + | Name | Relationship | Address | Phone | + + +---------+ + | Lidia Thibodeaux | ECON | Unknown | | + + +---------+ + Care Team Providers + +------+ + | Care Director Of Maternity Services Name | Role | Phone | + +------+ + | Gela Trimble BMET | PCP | | + +------+ + Encounter Details +--------+ + + + + | Date | Type | Department | Care Team | Description | +--------+ + + + + | 05/17/ | Rf Microwave Engineer | Pulmonary & | Alexander Hays MD | Pulmonary | | 2012 | | Critical Care | [address] | hypertension (HCC) | | | | Medicine at | [facility], | (Primary Dx) | | | | [facility] | [place] [address] | | | | | [address] | [phone] | | | | | [address] [facility] | | | | | | Pavilion, 3rd Floor | | | | | | [place], [place] | | | | | | [address] | | | | | | [phone] | | | +--------+ + + + [...]
--- OUTSIDE RECORDS SUMMARY | ~2020-07-30 | XMS | Encounter Summary ---
Demographics + + + | Address | [address] | | | [place] [address] | + + + | Home Phone [...] + | [employer] | ECON | [phone] | | | | | Unknown | | + + + + + Care Team Providers + +------+ + | Care Base Draw Operator Name | Role | Phone | [...] + + | 08/27/ | Office | [facility] | [place], | Primary pulmonary | | 2012 | Visit | PULMONARY [address] | Vera Farrar MD | hypertension (HCC) | | | | [place], | | (Primary Dx); COPD | | | | [place] [address] | | (chronic obstructive | | | | [phone] | | pulmonary disease) | | | [...] MD Elo Bernardo Pulmonary and Critical Care [facility] [address] [place], [address] HPI Margarita Rowley is a 47 y.o. female patient of Gela Trimble [facility] here today for follow up [...] Years of Education: N/A Occupational History Disabled. [employer] Social History Main Topics Smoking status: Former Smoker -- 1.0 packs/day for 20 years Types: Cigarettes Quit date: 05/14/2013 Smokeless tobacco: None Alcohol Use: Yes history of abuse Drug Use: Yes Special: Cocaine history of cocaine use Sexually Active: None Other Topics Concern None Social History Narrative Lives at [employer]. Allergies: Allergies Allergen Reactions Erythromycin Metronidazole Penicillins [...] Active Take 2,000 Units by mouth Daily. [place] Starch POWD Active by Does not apply [...] patch onto the skin every 24 hours. [place]-3 Fatty Acids (SEA-OMEGA 30) 1200 MG CAPS [...] made to ensure accuracy; however, inadvertent computerized outreach team member errors may be pre sent. documented in [...] + | [facility] | [address] | [place] | [phone] | | [facility] | | [address] | | | - LABORATORY | | | | + + + + + | [facility] | [address] | [place], [place] | | | [facility] | | [id number] [place] [address] | | | - LABORATORY | | [...] + | [facility] | [address] | [place] | [phone] | | [facility] | | [address] | | | - LABORATORY | | | | + + + + + | [facility] | [address] | [place], [place] | | | [facility] | | [address], [facility] | | | - LABORATORY [...]
--- OUTSIDE RECORDS SUMMARY | ~2020-07-30 | XMS | Encounter Summary ---
Demographics + + + | Address | [address] | | | [place] [address] | + + + | Home Phone [...] + | [employer] | ECON | [phone] | | | | | Unknown | | + + + + + Care Team Providers + +------+ + | Care Red Cap Name | Role | Phone | + [...] + + | 01/23/ | [facility] | [facility] | Jacky Calderon PA | Primary central | | 2013 | Visit | SLEEP DISORDER [address] | [address] | sleep apnea (Primary | | | | [address] [place] | [place] | Dx) | | | | [place] [address] | [address] | | | | | [phone] | | | +--------+---------+ + + + [...] was: 12/26/2013 date of polysomnography: 03/13/2013 at [facility] AHI: 64.2 O2%: n/a Machine type: Respironics BiPAP Auto with ResMed Quattro FX full face mask obtained from: [facility] pressure: 16/5 cm with backup rate of [...] months, sooner prn. Fifteen minutes were spent zruk-uv-roct , with the majority of time spent [...]
--- OUTSIDE RECORDS SUMMARY | ~2020-07-30 | XMS | Encounter Summary ---
Demographics + + + | Address | [address] | | | [place] [address] | + + + | Home Phone [...] | Organization | [facility] | | | and [place] | + + + | Address | Unknown | + + + | Phone | Unavailable | + + + Support + + + + + | Name | Relationship | Address | Phone | + + + + + | [employer] | ECON | [id number] | | | | | Unknown | | + + + + + Care Team Providers + +------+ + | Care Supervisor Photostat Name | Role | Phone | + [...] | | | | | obstructive | TECHNICAL RESEARCH SCIENTIST [address] | [address] | | | | | pulmonary | [address] | [place], [place] | | | | | disease, | [place], | [address] | | | | | unspecified | [place] [address] | Phone: | | | | | ([facility]) | Phone: | [phone] | | | | | Procedures | [phone] | Fax: | | | | | F/U APPT | Fax: | [phone] | | | | | SCOUT | [phone] | | | | | | JERSON | | | | | | | 02/21/18 | | | +--------+--------+ + + + + Encounter Details +--------+---------+ + + + | Date | Type | Department | Care Team | Description | +--------+---------+ + + + | 02/21/ | Office | [facility] | Scout Arthur, | Pulmonary | | 2018 | Visit | PULMONARY [address] | [address] | hypertension, | | | | [place], | [place] [address] | unspecified ([facility]) | | | | [place] [address] | [phone] | (Primary Dx) | | | | [phone] | | | +--------+---------+ + + + [...] had been diagnosed prior to that at [facility] in [place] by Dr. Lashae Rivera whose excellent notes [...] She is not taking spironolactone. See the [facility] ed section for medications. She had [...] from in-home medical. We spent 25 minutes niit-lv-sxwn, at least half in counseling. Word processing [...]
--- OUTSIDE RECORDS SUMMARY | ~2020-07-30 | XMS | Encounter Summary ---
Demographics + + + | Address | [address] | | | [place] [address] | + + + | Home Phone [...] + | [employer] | ECON | [phone] | | | | | Unknown | | + + + + + Care Team Providers + +------+ + | Care Cooler Supervisor Name | Role | Phone | [...] + + | 06/14/ | Office | [facility] | Jacky Calderon PA | Primary central | | 2018 | Visit | SLEEP DISORDER [address] | [address] | sleep apnea (Primary | | | | [address] [place] | [place] | Dx) | | | | [place] [address] | [address] | | | | | [phone] | | | +--------+---------+ + + + [...] Go to [facility] to get: -Respironics AmaraView full face mask [...] 07/26/2017 date of polysomnography: 03/13/2013 at [facility] AHI: 64.2 O2%: n/a Machine type: Respironics BiPAP Auto Mask type: ResMed Quattro FX full face mask DME: [facility] in [place] pressure: 16/5 cm with backup rate of [...] full face mask. She may consider using [facility], if [facility] in [place] does not get her the correct mask. [...] Assessment: Problem #1: PRIMARY CENTRAL SLEEP APNEA ([id number]) This is controlled with BiPAP and oxygen [...]
--- OUTSIDE RECORDS SUMMARY | ~2020-07-30 | XMS | Encounter Summary ---
Demographics + + + | Address | [address] | | | [place] [address] | + + + | Home Phone [...] Organization | [facility] | | | and [place] | + + + | Address | Unknown | + + + | Phone | Unavailable | + + + Support + + + + + | Name | Relationship | Address | Phone | + + + + + | [employer] | ECON | [phone] | | | | | Unknown | | + + + + + Care Team Providers + +------+ + | Care Development Representative Name | Role | Phone | [...] MD | oximetry) | | | | [place], | | | | | | [place] [address] | | | | | | [phone] | | | +--------+ + + + [...]
--- OUTSIDE RECORDS SUMMARY | ~2020-07-30 | XMS | Encounter Summary ---
Demographics + + + | Address | [address] | | | [place] [address] | + + + | Home Phone [...] + | [employer] | ECON | [phone] | | | | | Unknown | | + + + + + Care Team Providers + +------+ + | Care Communications Tower Climber Name | Role | Phone | + +------+ + | Yuni Shrestha | PCP | | + +------+ + Encounter Details +--------+ + + + + | Date | Type | Department | Care Team | Description | +--------+ + + + + | 03/20/ | Hospital | [facility] GENER[facility] | Conversion | Diagnosis unknown | | 2017 | Encounter | CONVERSION DEP [address] | Transaction, | | | | | [address] | Provider Unknown | | | | | [facility] [place] | [phone] | | | | | [address] | | | | | | [phone] | | | +--------+ + + + [...] + + + +---------+ + + | Divide Starch POWD | by Does not apply [...]
--- OUTSIDE RECORDS SUMMARY | ~2020-07-30 | XMS | Encounter Summary ---
Demographics + + + | Address | [address] | | | [place] [address] | + + + | Home Phone [...] Team Providers + +------+ + | Care Hemotherapist Name | Role | Phone | + [...] | | | | | n | [facility] | | | | | | [place] [address] | | | | | | [phone] | | | +--------+ + + + [...]
--- OUTSIDE RECORDS SUMMARY | ~2020-07-30 | XMS | Encounter Summary ---
Demographics + + + | Address | [address] | | | [place] [address] | + + + | Home Phone [...] + | [employer] | ECON | [phone] | | | | | Unknown | | + + + + + Care Team Providers + +------+ + | Care Customer Equipment Engineer Name | Role | Phone | [...] Farrar MD | | | | | [place], | | | | | | [place] [address] | | | | | | [phone] | | | +--------+ + + + [...] Alysa Shrestha RN - 04/23/2015 11:02 AM [facility] was notified that Margarita needs to have a repeat Echo in Jul 2015. She will note that for the nurse. Also she was notified that Margarita has a follow up appt scheduled f or 06/12/15. domercy gillis in this encounter Plan of Treatment Not on filedocumented as of this encounter Visit Diagnoses Not on filedocumented in this encounter"
--- OUTSIDE RECORDS SUMMARY | ~2020-07-30 | XMS | Encounter Summary ---
Demographics + + + | Address | [address] | | | [place] [address] | + + + | Home Phone [...] Organization | [facility] | | | and [place] | + + + | Address | Unknown | + + + | Phone | Unavailable | + + + Support + + + + + | Name | Relationship | Address | Phone | + + + + + | [employer] | ECON | [phone] | | | | | Unknown | | + + + + + Care Team Providers + +------+ + | Care Scrap Crusher Name | Role | Phone | + [...] | Primary | [place], | [address] | | | | | pulmonary | Vera B, | [place], | | | | | hypertension | MD [address] | [place] | | | | | ([facility]) | [address] | [address] | | | | | Procedures | [place], | Phone: | | | | | ECHO | [place] [address] | [phone] | | | | | Complete MD | | Fax: | | | | | ECHO HEART | | [phone] | | | | | XTHORACIC,[place] | | | | | | | [address] | | | | | | | DOPPLER MD [...] | | | Pulmonology | airway | [address] | MD | | | | | obstruction, | [place] | | | | | | not | [address] | | | | | | elsewhere | [place], | | | | | | classified | [place] [address] | | | | | | Procedures | Phone: | | | | | | F/U | [phone] | | | | | | | Fax: | | | | | | | [phone] | | +--------+--------+ + + + + Encounter Details +--------+---------+ + + + | Date | Type | Department | Care Team | Description | +--------+---------+ + + + | 03/12/ | Office | [facility] [place] | Fatou, | Primary pulmonary | | 2015 | Visit | PULMONARY [address] | Vera B, MD | hypertension; | | | | [place], | | Exercise hypoxemia | | | | [place] [address] | | ([facility]); Sleep related | | | | [phone] | | hypoxemia; COPD | | | [...] Years of Education: N/A Occupational History Disabled. [employer] Social History Main Topics Smoking status: Former Smoker -- 1.00 packs/day for 20 years Types: Cigarettes Quit date: 12/10/2014 Smokeless tobacco: None Comment: restarted in August 2014, quit again 12/10/14 Alcohol Use: Yes Comment: history of abuse Drug Use: Yes Special: Cocaine Comment: history of cocaine use Sexual Activity: None Other Topics Concern None Social History Narrative Lives at [email or web address]. Allergies: Allergies Allergen Reactions Erythromycin Metronidazole Penicillins [...] TABS Take 2,000 Units by mouth Daily. [place] Starch POWD by Does not apply route [...] mg onto the skin every 24 hours. [place]-3 Fatty Acids (SEA-OMEGA 30) 1200 MG CAPS [...] kg (205 lb 11.2 oz) | B ID 41.52 kg/m2 | SpO2 90% RA General [...] Range: 0-100 6 eGFR, External Latest Range: [id number] (A) Immunization History Administered Date(s) Administered [...] made to ensure accuracy; however, inadvertent computerized pathology transcriptionist errors may be pre sent. documented in [...] Performed At | + + + | [facility] ECHOCARD[facility]PORT | [place] | | STUDY DATE: 03/26/2015 PATIENT NAME: Margarita Rowley : | [facility] | | 1965 PCP: Physician Elisabeth [...] Signed by: Derick Strong, | | | [facility] 03/26/2015 13:52 Curve Saw Operator: Maciel Silva, | | | RDCS, RDMS, RVT | | + + + + + + + + | Performing | Address | City/State/Zipcode | Phone Number | | Organization | | | | + + + + + | [facility] | [address] | [place], [place] | [phone] | | [facility] | | [address] | | | - IMAGING | | [...]
--- OUTSIDE RECORDS SUMMARY | ~2020-07-30 | XMS | Encounter Summary ---
Demographics + + + | Address | [address] | | | [place] [address] | + + + | Home Phone | | + + + | Preferred Language | Unknown | + + + | Marital Status | Single | + + + | Faith Affiliation | NRP | + + + [...] Team Providers + +------+ + | Care Golf Course Assistant Name | Role | Phone | + +------+ + | Gela Trimble MILITARY SCIENCE TEACHER | PCP | | + +------+ + Encounter Details +--------+ + + + + | Date | Type | Department | Care Team | Description | +--------+ + + + + | 05/17/ | Heavy Equipment Supervisor | Pulmonary & | Alexander Hays MD | Pulmonary | | 2012 | | Critical Care | [address] | hypertension (HCC) | | | | Medicine at | [facility], | (Primary Dx) | | | | [facility] | [place] [address] | | | | | [address] | [phone] | | | | | [address] [facility] | | | | | | Pavilion, 3rd Floor | | | | | | [place], [place] | | | | | | [address] | | | | | | [phone] | | | +--------+ + + + [...]
--- OUTSIDE RECORDS SUMMARY | ~2020-07-30 | XMS | Encounter Summary ---
Demographics + + + | Address | [address] | | | [place] [address] | + + + | Home Phone [...] + | [employer] | ECON | [phone] | | | | | Unknown | | + + + + + Care Team Providers + +------+ + | Care Gauge Maker Name | Role | Phone | [...] [place] | | | | | [address] | [address] | | | | | [phone] | [phone] | | | | | | | [...]
--- OUTSIDE RECORDS SUMMARY | ~2020-07-30 | XMS | Encounter Summary ---
Demographics + + + | Address | [address] | | | [place] [address] | + + + | Home Phone [...] + | [employer] | ECON | [phone] | | | | | Unknown | | + + + + + Care Team Providers + +------+ + | Care Lighting Equipment Operator Name | Role | Phone | + +------+ + | Gela Trimble NP | PCP | | + +------+ + Reason for Visit +--------+--------+ + | Reason | Onset | Comments | | | Date | | +--------+--------+ + | Other | 08/08/ | YUMIKO# for prescription Tim CALDERON#[id number] from | | | 2012 | 08.07.13-08.07.14 | +--------+--------+ + Encounter Details +--------+ + + + + | Date | Type | Department | Care Team | Description | +--------+ + + + + | 08/08/ | Telephone | [facility] | Valeria Reed, | Other ([place]# for | | 2012 | | PULMONARY [address] | RN | prescription Adcirca | | | | [place], | | [place]#[id number] from | | | | [place] [address] | | 08.07.13-08.07.14) | | | | [phone] | | | +--------+ + + + [...] Gillis, RN - 08/08/2013 9:17 [facility] [phone] received prior authorization for 1 year for prescription A dcirca. Called pharmacy and patient onsite case manager. documented in this encounter Plan of Treatment Not on filedocumented as of this encounter Visit Diagnoses Not on filedocumented in this encounter"
--- OUTSIDE RECORDS SUMMARY | ~2020-07-30 | XMS | Encounter Summary ---
[...] | Organization | [facility] | | | and [place] | + + + | Address | Unknown | + + + | Phone | Unavailable | + + + Support + + + + + | Name | Relationship | Address | Phone | + + + + + | [employer] | ECON | [id number] | | | | | Unknown | | + + + + + Care Team Providers + +------+ + | Care Electrical Assemblies Supervisor Name | Role | Phone | [...] [place] | | | | | [address] | [address] | | | | | [phone] | [phone] | | | | | | | [...]
--- OUTSIDE RECORDS SUMMARY | ~2020-07-30 | XMS | Encounter Summary ---
Demographics + + + | Address | [address] | | | [place] [address] | + + + | Home Phone [...] Team Providers + +------+ + | Care Assisted Living Coordinator Name | Role | Phone | + +------+ + | Gela Trimble TOP CLEANER | PCP | | + +------+ + [...] | | | | | | | [address] | | | | | | | [place] | | | | | | | [place] Mailcode: | | | | | | | [address] [facility] | | | | | | | Hospital | | | | | | | [place], [place] | | | | | | | [address] | | | | | | | Phone: | | | | | | | [phone] | | | | | | | Fax: | | | | | | | [phone] | +--------+--------+ + + + + Encounter Details +--------+ + + + + | Date | Type | Department | Care Team | Description | +--------+ + + + + | 05/07/ | Results/Int | Pulmonary Function | | Unspecified asthma | | 2012 | erpretation | Lab at [facility] [address] | | (Primary Dx) | | | | [address] | | | | | | [facility] | | | | | | [place], [place] | | | | | | [address] | | | | | | [phone] | | | +--------+ + + + [...] | + +--------+ + + + | MI SPIROMETRY TEST | Routin | 05/08/2013 | [...]
--- OUTSIDE RECORDS SUMMARY | ~2020-07-30 | XMS | Encounter Summary ---
Demographics + + + | Address | [address] | | | [place] [address] | + + + | Home Phone [...] + | [employer] | ECON | [phone] | | | | | Unknown | | + + + + + Care Team Providers + +------+ + | Care Salsa Dance Instructor Name | Role | Phone | [...] | | | Pulmonology | obstructive | SUPERVISOR HANGING AND TRIMMING [address] | MD | | | | | pulmonary | [address] | | | | | | disease, | [place], | | | | | | unspecified | [place] [address] | | | | | | (HCC) | Phone: | | | | | | Procedures | [phone] | | | | | | F/U | Fax: | | | | | | | [phone] | | +--------+--------+ + + + + Encounter Details +--------+---------+ + + + | Date | Type | Department | Care Team | Description | +--------+---------+ + + + | 11/07/ | Office | [facility] [place] | [place], | Primary pulmonary | | 2016 | Visit | PULMONARY [address] | Vera Farrar MD | hypertension | | | | [place], | | (Primary Dx); [place] | | | | [place] [address] | | (obstructive sleep | | | | [phone] | | apnea); Hypoxemia; | | | [...] Diagnosis Date COPD (chronic obstructive pulmonary disease) ([facility]) moderate, FEV1 1.40 (59%) Pulmonary hypertension ([facility]) severe, class 1, class 2, class 3 Bipolar disorder ([facility]) PTSD (post-traumatic stress disorder) Osteoarthritis Obstructive sleep apnea AHI 64.2 Vitamin D deficiency GERD (gastroesophageal reflux disease) Hypothyroidism Seizure disorder ([facility]) Developmental delay Hypoxemia on 2L [...] Years of Education: N/A Occupational History Disabled. [employer] Social History Main Topics Smoking status: Current Every Day Smoker -- 1.00 packs/day for 20 years Types: Cigarettes Smokeless tobacco: Never Used Alcohol Use: No Drug Use: No Sexual Activity: None Other Topics Concern None Social History Narrative Lives at [employer]. Allergies: Allergies Allergen Reactions Erythromycin Metronidazole Penicillins [...] TABS Take 2,000 Units by mouth Daily. [place] Starch POWD by Does not apply route [...] mg onto the skin every 24 hours. [place]-3 Fatty Acids (SEA-OMEGA 30) 1200 MG CAPS [...] sounds are diminished bilaterally, no wheezes, scraper operator ckles or rhonchi Chest Wall: No [...] compliance, not using her oxygen appropriately. * [facility] ([facility]) Pulmonary Function Testing - AMB Referral 2. [...] made to ensure accuracy; however, inadvertent computerized county commissioner errors may be pre sent. documented in [...] | | | | | mg/dL | [facility] | | | | | | MEDICAL | | | | | | CENTER - | | | | | | LABORATORY | | + + + + + + | eGFR, | 57 (L)Comment: | >=60 | [facility] | | | non- | GLOMERULAR FILTRATION | mL/min/1.73m2 | [facility] | | | [place] | RATE,ESTIMATED | | MEDICAL | | | | mL/min/1.58m9Owoq than | | CENTER - | | [...] [address] | [place] | [phone] | | [facility] | | [address] | | | - LABORATORY | | [...] [address] | [place] | [phone] | | [facility] | | [address] | | | - LABORATORY | | [...]
--- OUTSIDE RECORDS SUMMARY | ~2020-07-30 | XMS | Encounter Summary ---
Demographics + + + | Address | [address] | | | [place] [address] | + + + | Home Phone [...] + | [employer] | ECON | [phone] | | | | | Unknown | | + + + + + Care Team Providers + +------+ + | Care Watershed Coordinator Name | Role | Phone | [...] + | 04/30/ | Office | [facility] | Jacky Calderon PA | GLORIA treated with | | 2019 | Visit | SLEEP DISORDER [address] | [address] | BiPAP (Primary Dx) | | | | [address] [place] | [place] | | | | | [place] [address] | [address] | | | | | [phone] | | | +--------+---------+ + + + [...] visit: 04/16/2019 date of polysomnography: 03/13/2013 at [facility] AHI: 64.2 O2%: n/a Machine type: Respironics DreamStation Auto BiPAP Mask type: ResMed Quattro FX full face mask DME: [facility] [place] pressure: 16/5 cm with backup rate of [...] Assessment: Problem #1: PRIMARY CENTRAL SLEEP APNEA ([id number]) She has severe apnea. This is controlled [...] year, sooner prn. Fifteen minutes were spent [id number], with the majority of time spent in counseling. Jacky Calderon PA-C Cc: Shanice Huang MD documented in this enco unter Plan of Treatment Not on filedocumented as of this encounter Visit Diagnoses + + | Diagnosis | + + | GLORIA treated with BiPAP - Primary | + + documented in this encounter"
--- OUTSIDE RECORDS SUMMARY | ~2020-07-30 | XMS | Encounter Summary ---
Demographics + + + | Address | [address] | | | [place] [address] | + + + | Home Phone [...] | Organization | [facility] | | | and [place] | + + + | Address | Unknown | + + + | Phone | Unavailable | + + + Support + + + + + | Name | Relationship | Address | Phone | + + + + + | [employer] | ECON | [phone] | | | | | Unknown | | + + + + + Care Team Providers + +------+ + | Care Puffer Tender Name | Role | Phone | [...] | | | CENTER [address] | [facility] | | | | | [address] [place] | [place] [address] | | | | | [address] | [phone] | | | | | [phone] | | | +--------+ + + + [...]
--- OUTSIDE RECORDS SUMMARY | ~2020-07-30 | XMS | Encounter Summary ---
Demographics + + + | Address | [address] | | | [place] [address] | + + + | Home Phone [...] + | [employer] | ECON | [phone] | | | | | Unknown | | + + + + + Care Team Providers + +------+ + | Care Public Welfare Director Name | Role | Phone | [...] | Primary | [place], | [address] | | | | | pulmonary | Vera B, | [place], | | | | | hypertension | MD [address] | [place] | | | | | ([facility]) | [address] | [address] | | | | | Procedures | [place], | Phone: | | | | | ECHO | [place] [address] | [phone] | | | | | Complete [place] | | Fax: | | | | | ECHO HEART | | [phone] | | | | | XTHORACIC,[place] | | | | | | | MPLETE W | | | | | | | DOPPLER [place] | | | | | | [...] + + | 06/12/ | Office | [facility] | [place], | Primary pulmonary | | 2015 | Visit | PULMONARY [address] | Vera Farrar MD | hypertension (HCC); | | | | [address] [place], | | GLORIA (obstructive | | | | [place] [address] | | sleep apnea); COPD | | | | [phone] | | (chronic obstructive | | | [...] with walking, except out to the back [facility] where she has be en smoking, [...] COPD (chronic obstructive pulmonary disease) ([facility]) moderate, FEV1 1.40 (59%) Pulmonary hypertension ([facility]) severe, class 1, class 2, class 3 Bipolar disorder ([facility]) PTSD (post-traumatic stress disorder) Osteoarthritis [...] Years of Education: N/A Occupational History Disabled. [employer] Social History Main Topics Smoking status: Current [...] Concern None Social History Narrative Lives at [facility]. Allergies: Allergies Allergen Reactions Erythromycin Metronidazole Penicillins [...] TABS Take 2,000 Units by mouth Daily. [place] Starch POWD by Does not apply route [...] mg onto the skin every 24 hours. [place]-3 Fatty Acids (SEA-OMEGA 30) 1200 MG CAPS [...] her caregivers to take her to [facility] [place] monthly to have this done. HCG, Urine, [...] made to ensure accuracy; however, inadvertent computerized lithographing machine operator errors may be pre sent. documented [...]
--- OUTSIDE RECORDS SUMMARY | ~2020-07-30 | XMS | Encounter Summary ---
Demographics + + + | Address | [address] | | | [place] [address] | + + + | Home Phone [...] + | [employer] | ECON | [phone] | | | | | Unknown | | + + + + + Care Team Providers + +------+ + | Care Radio Interference Investigator Name | Role | Phone | + [...] MD | oximetry) | | | | [place], | | | | | | [place] [address] | | | | | | [phone] | | | +--------+ + + + [...] PSTCalled and talked with Kamala at the [facility]. Advised per Dr Lainez thatBeatrisrossy does [...] + | COPD (chronic obstructive pulmonary disease) ([facility]) - Primary Chronic airway | | obstruction, not elsewhere classified | + + documented in this encounter"
--- OUTSIDE RECORDS SUMMARY | ~2020-07-30 | XMS | Encounter Summary ---
Demographics + + + | Address | [address] | | | [place] [address] | + + + | Home Phone [...] + | [employer] | ECON | [phone] | | | | | Unknown | | + + + + + Care Team Providers + +------+ + | Care Dope Worker Name | Role | Phone | [...] [address] | | | | | [address], [place] | [place], [place] | | | | | [address] | [address] | | | | | [phone] | | | +--------+--------+ + + + [...]
--- OUTSIDE RECORDS SUMMARY | ~2020-07-30 | XMS | Encounter Summary ---
Demographics + + + | Address | [address] | | | [place] [address] | + + + | Home Phone [...] + | [employer] | ECON | [phone] | | | | | Unknown | | + + + + + Care Team Providers + +------+ + | Care Digital Performance Analyst Name | Role | Phone | [...] | | | | | | | [place] [facility] | | | | | | [...] + + | 05/08/ | Hospital | [facility] | Angel Garcia | | | 2019 | Encounter | MED CTR OR INTRA OP | MD [address] | | | | | [address] | [place] | | | | | [place] | [place] [address] | | | | | [address] | [phone] | | | | | [phone] | | | +--------+ + + + [...] Tata last reviewed this educational content on 08/17/201619998709-4956 [employer]. [address] [place] [address], [place] [id number]. All righ ts reserved. 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), left eye Post-op Diagnosis: same Procedure: Cataract extraction by phacoemulsification with intraocular lens implant with tr trell loya, left eye (65766) Implant: Costa PCB00 23.5 D, SN [id number] Surgeon: Angel Garcia MD Anesthesia: Monitored Anesthesia Care Technique/Procedure Description: After the patient's eye prepped and draped in the usual [facility] ophthalmic manner, a lid speculum was [...] Needs | | | | | | Solar Fabrication Technician | | | al | | | [...] < 50, | | | Starting Galilea 7/9/20 at 0801, | | | Repeat in [...] PRN, Nausea, Vomiting, | | | Starting Tue05/08/20 at 1009, | | | Recovery/Phase I [...] | | | | | | Starting Tue05/08/20 at 0801, For | | | | [...] | | | drop, Left Eye, ONCE, [facility] 05/08/20 | | AM PDT | | [...] | | | | | | | Galilea 05/08/20 at 0801, For 3 doses, | [...]
--- OUTSIDE RECORDS SUMMARY | ~2020-07-30 | XMS | Encounter Summary ---
Demographics + + + | Address | [address] | | | [place] [address] | + + + | Home Phone [...] + | [employer] | ECON | [phone] | | | | | Unknown | | + + + + + Care Team Providers + +------+ + | Care Account Contact Associate Name | Role | Phone | + +------+ + | Gela Trimble NP | PCP | | + +------+ + Encounter Details +--------+ + + + + | Date | Type | Department | Care Team | Description | +--------+ + + + + | 12/17/ | [facility] | [facility] | Fatou, | | | 2013 | Encounter | MED CTR GENERIC OP | Vera Farrar MD | | | | | CONV DEPT [address] | | | | | | [place], | | | | | | [place] [address] | | | | | | [phone] | | | +--------+ + + + [...] | | ([facility]) | | | | | | [...] + + + +---------+ + + | [place] Starch POWD | by Does not apply [...] + + + +---------+ + + | [place]-3 Fatty | Take by mouth. | | [...] 08/06/20 | | | Therapy Supplies | [facility]'s office | | | 13 | 8 [...]
--- OUTSIDE RECORDS SUMMARY | ~2020-07-30 | XMS | Encounter Summary ---
Demographics + + + | Address | [address] | | | [place] [address] | + + + | Home Phone [...] + | [employer] | ECON | [phone] | | | | | Unknown | | + + + + + Care Team Providers + +------+ + | Care Filling Room Operator Name | Role | Phone [...] | ABDIRASHID BROTHERS | [facility] [place] | | | | | [place] | [address] | | | | | [address] | [phone] | | | | | [phone] | | | +--------+ + + + [...]
--- OUTSIDE RECORDS SUMMARY | ~2020-07-30 | XMS | Encounter Summary ---
Demographics + + + | Address | [address] | | | [place] [address] | + + + | Home Phone [...] + | [employer] | ECON | [phone] | | | | | Unknown | | + + + + + Care Team Providers + +------+ + | Care Metal Window Screen Assembler Name | Role | Phone | + +------+ + | Gela Trimble NP | PCP | | + +------+ + Encounter Details +--------+ + + + + | Date | Type | Department | Care Team | Description | +--------+ + + + + | 09/11/ | Hospital | [facility] | [place], | Primary pulmonary | | 2013 | Encounter | MED CTR PULMONARY | Vera Farrar MD | hypertension; COPD | | | | FUNCTION [address] | | (chronic obstructive | | | | [place], | | pulmonary disease); | | | | [place] [address] | | Hypoxemia | | | | [phone] | | | +--------+ + + + [...] | | | | ([facility]) | | | | | | [...] + + + +---------+ + + | [place] Starch POWD | by Does not apply [...] + + + +---------+ + + | [place]-3 Fatty | Take by mouth. | [...] documented as of this encounter Procedure Notes [facility] - 09/11/2014 12:00 AM PSTAssociated Order(s): DIAGNOSTIC REPORT - EXTERNAL SCANElectronically signed by [facility] at 09/20/2014 12:20 PM PSTRE[facility] - 08/31 12:00 AM PSTAssociated Order(s): DIAGNOSTIC REPORT - EXTERNAL SCANElectronically sign ed by [facility] at 09/20/2014 12:20 PM PSTdocumented in [...]
--- OUTSIDE RECORDS SUMMARY | ~2020-07-30 | XMS | Encounter Summary ---
Demographics + + + | Address | [address] | | | [place] [address] | + + + | Home Phone [...] + | [employer] | ECON | [phone] | | | | | Unknown | | + + + + + Care Team Providers + +------+ + | Care Parks Recreation Coordinator Name | Role | Phone | [...] + + | 05/21/ | Office | [facility] | Jacky Calderon PA | Primary central | | 2014 | Visit | SLEEP DISORDER [address] | [address] | sleep apnea (Primary | | | | [address] [place] | [place] | Dx) | | | | [place] [address] | [address] | | | | | [phone] | | | +--------+---------+ + + + [...] was: 01/23/2014 date of polysomnography: 03/13/2013 at [facility] AHI: 64.2 O2%: n/a Machine type: Respironics BiPAP Auto with ResMed Quattro FX full face mask obtained from: [facility] pressure: 16/5 cm with backup rate [...] year, sooner prn. Fifteen minutes were spent [id number], with the majority of time spent in counseling. Jacky Calderon PA-C cc: BRUCE Beal MD documented in this enco unter Miscellaneous Notes Miscellaneous - [facility] - 05/21/2014 12:00 AM PDT documented in this encounter Plan of Treatment Not on filedocumented as of this encounter Visit Diagnoses + + | Diagnosis | + + | Primary central sleep apnea - Primary | + + documented in this encounter"
--- OUTSIDE RECORDS SUMMARY | ~2020-07-30 | XMS | Encounter Summary ---
Demographics + + + | Address | [address] | | | [place] [address] | + + + | Home Phone [...] + | [employer] | ECON | [phone] | | | | | Unknown | | + + + + + Care Team Providers + +------+ + | Care Nurse Discharge Planner Name | Role | Phone | [...] | hypertension (HCC) | | | | [place], | | | | | | [place] [address] | | | | | | [phone] | | | +--------+ + + + [...]
--- OUTSIDE RECORDS SUMMARY | ~2020-07-30 | XMS | Encounter Summary ---
Demographics + + + | Address | [address] | | | [place] [address] | + + + | Home Phone [...] + | [employer] | ECON | [phone] | | | | | Unknown | | + + + + + Care Team Providers + +------+ + | Care Financial Reporting Analyst Name | Role | Phone | [...] Farrar MD | | | | | [place], | | | | | | [place] [address] | | | | | | [phone] | | | +--------+ + + + [...] [facility] with her care providers. Cc: Lashae Rivera MD, [facility] [employer] documented in this encounter Plan of Treatment Not on filedocumented as of this encounter Visit Diagnoses Not on filedocumented in this encounter"
--- OUTSIDE RECORDS SUMMARY | ~2020-07-30 | XMS | Encounter Summary ---
Demographics + + + | Address | [address] | | | [place] [address] | + + + | Home Phone [...] + | [employer] | ECON | [phone] | | | | | Unknown | | + + + + + Care Team Providers + +------+ + | Care Matrix Drier Tender Name | Role | Phone | [...] | | | | | | [place] [address] | | | | | | [phone] | | | +--------+ + + + [...]
--- OUTSIDE RECORDS SUMMARY | ~2020-07-30 | XMS | Encounter Summary ---
Demographics + + + | Address | [address] | | | [place] [address] | + + + | Home Phone [...] + | [employer] | ECON | [phone] | | | | | Unknown | | + + + + + Care Team Providers + +------+ + | Care Sand Conditioner Machine Name | Role | Phone | [...] MD | obstructive | | | | [place], | | pulmonary disease) | | | | [place] [address] | | (HCC) (Primary Dx); | | | | [phone] | | Pulmonary | | | | | | hypertension ([facility]); | | | | | | Obstructive [...]
--- OUTSIDE RECORDS SUMMARY | ~2020-07-30 | XMS | Encounter Summary ---
Demographics + + + | Address | [address] | | | [place] [address] | + + + | Home Phone [...] + | [employer] | ECON | [phone] | | | | | Unknown | | + + + + + Care Team Providers + +------+ + | Care Maintenance Job Titles Name | Role | Phone | + [...] | | ABDIRASHID BROTHERS | [facility] [place] | | | | | [place] | [address] | | | | | [address] | [phone] | | | | | [phone] | | | +--------+ + + + [...]
--- OUTSIDE RECORDS SUMMARY | ~2020-07-30 | XMS | Encounter Summary ---
Demographics + + + | Address | [address] | | | [place] [address] | + + + | Home Phone [...] + | [employer] | ECON | [phone] | | | | | Unknown | | + + + + + Care Team Providers + +------+ + | Care Label Maker Name | Role | Phone | [...] | | | | ABDIRASHID BROTHERS | [facility] [place] | | | | | [place] | [address] | | | | | [address] | [phone] | | | | | [phone] | | | +--------+ + + + [...]
--- OUTSIDE RECORDS SUMMARY | ~2020-07-30 | XMS | Encounter Summary ---
Demographics + + + | Address | [address] | | | [place] [address] | + + + | Home Phone [...] + | [employer] | ECON | [phone] | | | | | Unknown | | + + + + + Care Team Providers + +------+ + | Care Card Folder Name | Role | Phone | + +------+ + PCP | Unavailable | + +------+ + Encounter Details +--------+ + + + + | Date | Type | Department | Care Team | Description | +--------+ + + + + | 12/18/ | Hospital | [facility] | [facility] | | | 2008 | Encounter | HOSPITAL XRAY [address] | MD [address] | | | | | ABDIRASHID BROTHERS | [facility] [place] | | | | | [place] | [address] | | | | | [address] | [phone] | | | | | [phone] | | | +--------+ + + + [...]
--- OUTSIDE RECORDS SUMMARY | ~2020-07-30 | XMS | Encounter Summary ---
Demographics + + + | Address | [address] | | | [place] [address] | + + + | Home Phone [...] Providers + +------+ + | Care Stock Patch Sawyer Name | Role | Phone | + +------+ + | Gela Trimble FISHER WEIR | PCP | | + +------+ + [...] | pulmonary | Nadja Solomon | [place], | | | | | heart | [place], [place] | [place] | | | | | diseases | [address] | [address] | | | | | Procedures | Phone: | Phone: | | | | | CONSULT TO | [phone] | [phone] | | | | | PULMONARY | Fax: | Fax: | | | | | | [phone] | [phone] | +--------+--------+ + + + + Diagnostic [...] | | | | | | | [place], [place] | | | | | | | [address] | | | | | | | Phone: | | | | | | | [phone] | | | | | | | Fax: | | | | | | | [phone] | | +--------+--------+ + + + + [...] | | | | Judi Hein, | [facility] [address] | | | | | TRANSTHORACI | MD [address] | | | | | C | [address] Serrano | [address] | | | | | [address] | [address] | Brown | | | | | AM, ADULT | [place], [place] | [facility] | | | | | | [address] | floor | | | | | | | [place], [place] | | | | | | | [address] | | | | | | | Phone: | | | | | | | [phone] | +--------+--------+ + + + + Reason [...] | | | | | | | [address] [facility] | | | | | | | Zach Saez | | | | | | | Mushtaq Mailcode: | | | | | | | 14B [facility] | | | | | | | Hospital | | | | | | | [place], [place] | | | | | | | [address] | | | | | | | Phone: | | | | | | | [phone] | | | | | | | Fax: | | | | | | | [phone] | +--------+--------+ + + + + Encounter Details +--------+ + + + + | Date | Type | Department | Care Team | Description | +--------+ + + + + | 05/02/ | Hospital | [facility] 14B MEDICINE | Damián Cervantes MD | | | 2013 - | Encounter | [address] | [address] | | | | | Nadja Solomon Mailcode: | Nadja Solomon [place], | | | 05/12/ | | [address] [facility] | [place] [address] | | | 2012 | | [place], [place] | [phone] | | | | | [address] | | | | | | [phone] | Agus Hu MD | | | | | | [address] | | | | | | Nadja Solomon [place], | | | | | | [place] [address] | | | | | | [phone] | | | | | | | [...] interventricular septum. RVSP 75 +. Transferred to [facility] from OSH ED on after presenting with [...] to 100/80s. Initial vitals on arrival at [facility] were T 36.6 BP 110/69 P 74 [...] ensure proper diuresis -pt will f/u with station air traffic control specialist- Avila Langley in [place] #. Pulmonary hypertension, idiopathic- diagnosis confirmed via [...] Apply 1 Patch to skin once daily. Suches-3 Fatty Acids-Vitamin E (FISH OIL) 1,000 mg [...] SNF physician to follow, Dr. Ansari from [facility] -spoke to PCP and spoke over hospital course and f/u plans -will have pulm f.u here at [facility] as no pulm htn specialist in [place], to be arranged -asked PCP, who had been managing seizure d/o to arrange for neurology f/u in [place] (a greed) -pt will f/u with station air traffic control specialist- Avila Langley in [place] Outstanding labs/studies: none Cristine Freeman MD Internal Medicine Resident Pager [phone] Jessica Lopez MD Anesthesiology, PGY-1 Pager [phone] documented in t his encounter Medications at [...] + + + +---------+ + + | Suches-3 Fatty | Take 1 Cap by mouth [...] 4. Dispo - d/c to SNF near [place] for rehab. Taty Bucio MD, MPH numerical control machine tool operator [facility] DEPARTMENT: [id number]- [facility] [place] Place of Service:- Inpatient Date of Service: 05/12/2013 CSN: [id number] Suggested Modifiers:GC- Resident present for procedure Suggested CPT: 95292- Discharge < 30 min Too Lechuga MD [...] for transport tomorrow 11am to [facility] -spoke with Dr. Ansari (family [facility] [address]), physician to take care of p t at SNF -outpt meds: lasix 80mg PO BID, 40mEq KCl tab daily Agus Hu MD saw and evaluated this patient and aggress with my assessment and plan as documented above. Jessica Lopez MD Anesthesiology, PGY-1 Pager [phone] leAgus madden MD - 0 05/11/2013 4:[address] [facility] 4 GENERAL MEDICINE ATTENDING PROGRESS NOTE ADMIT DATE: 05/02/2013 8:40 PM TODAY'S DATE: 05/11/2013 (HOSPITAL DAY 9) I personally interviewed the patient, performed the beverly elements of the physical examinatio n, reviewed new lab data in EPIC, looked at any new radiology images and have developed an u pdated assessment and plan together with the 4 residents, Dr. Lopez/Lydia. Please see [facility] housestaff notes for full details. History: [...] set up for tomorrow. AGUS HU MD Manager [employer] chi[employer] Division of Hospital Medicine Department of Internal Medicine [facility] DEPARTMENT: Hosp- [id number] Place of Service: - Date of Service: 05/11/2013 CSN: [id number] Modifiers:GC Resident Involved: Yes Suggested CPT: 95072 Subsequent Visit Exp Prob Foc/Mod Complexity 25 [...] examinatio n, reviewed new lab data in [facility], looked at any new radiology images and have developed an u pdated assessment and plan together with the 4 residents, Dr. Lopez/Lydia. Please see [facility] housestaff notes for full details. I agree with their note with the following additions/ex ceptions. Assessment and Plans Patient Active Hospital Problem List: 1) *Right heart failure due to pulmonary hypertension: Still unclear cause of PulmHTN. Cou ld still be related to GLORIA, will review results of initial sleep study showing severe AHI [facility] pulmonology. RHC today. IF wedge pressure is [...] disorder 11) Developmental delay AGUS HU MD Manager [employer] Division of Hospital Medicine Department of Internal Medicine [facility] DEPARTMENT: Hosp- [id number] Place of Service: - [id number] Date of Service: 05/10/2013 CSN: [id number] Modifiers:GC Resident Involved: Yes Suggested CPT: 07414 Subsequent Visit Detailed/High complexity 35 min Too [...] above. Jessica Lopez MD Anesthesiology, PGY-1 Pager [phone] gus Hu MD - 0 05/09/2013 3:[address] [facility] 4 GENERAL MEDICINE ATTENDING PROGRESS NOTE [...] disorder 11) Developmental delay AGUS HU MD Manager [employer] Division of Hospital Medicine Department of Internal Medicine [facility] DEPARTMENT: Hosp- [id number] Place of Service: - Date of Service: 05/09/2013 CSN: [id number] Modifiers:GC Resident Involved: Yes Suggested CPT: 75296 Subsequent Visit Exp Prob Foc/Mod Complexity 25 [...] pending better optimization of fluid status, hopeful [facility] Code Status:} Full Code -:Interval [...] and plan. Cristine Freeman Internal Medicine Resident [id number] [facility] Center[facility]adden MD - 05/08/2013 2:[address] [facility] 4 GENERAL MEDICINE ATTENDING PROGRESS NOTE ADMIT DATE: 05/02/2013 8:40 PM TODAY'S DATE: 05/08/2013 (HOSPITAL DAY 6) I personally interviewed the patient, performed the beverly elements of the physical examinatio n, reviewed new lab data in EPIC, looked at any new radiology images and have developed an u pdated assessment and plan together with the [facility] residents, Dr. Lopez/Lydia. Please see e housestaff [...] disorder 11) Developmental delay AGUS HU MD Manager [employer] Division of Hospital Medicine Department of Internal Medicine [facility] DEPARTMENT: Hosp- [id number] Place of Service: Date of Service: 05/08/2013 CSN: [id number] Modifiers:GC Resident Involved: Yes Suggested CPT: 08243 Subsequent Visit Exp Prob Foc/Mod Complexity 25 [...] above. Jessica Lopez MD Anesthesiology, PGY-1 Pager [phone] [facility] CenterAgus madden MD - 0 05/07/2013 4:[address] [facility] 4 GENERAL MEDICINE ATTENDING PROGRESS NOTE [...] disorder 11) Developmental delay AGUS HU MD Manager [employer] Division of Hospital Medicine Department of Internal Medicine [facility] DEPARTMENT: Hosp- [id number] Place of Service: - Date of Service: 05/07/2013 CSN: [id number] Modifiers:GC Resident Involved: Yes Suggested CPT: 08579 Subsequent Visit Exp Prob Foc/Mod Complexity 25 [...] above. Jessica Lopez MD Anesthesiology, PGY-1 Pager [phone] EYAdena [facility] CenterAgus madden MD - 0 05/06/2013 7:[address] [facility] 4 GENERAL MEDICINE ATTENDING PROGRESS NOTE ADMIT DATE: 05/02/2013 8:40 PM TODAY'S DATE: 05/06/2013 (HOSPITAL DAY 4) I personally interviewed the patient, performed the beverly elements of the physical examinatio n, reviewed new lab data in [facility], looked at any new radiology images [...] kg/(m^2) No distress JVP difficult to assess [place] edema still present in the legs. Assessment [...] disorder 11) Developmental delay AGUS HU MD Manager [employer] Division of Hospital Medicine Department of Internal Medicine [facility] DEPARTMENT: Hosp- [id number] Place of Service: [facility] [id number] Date of Service: 05/06/2013 CSN: [id number] Modifiers:GC Resident Involved: Yes Suggested CPT: 40635 Subsequent Visit Exp Prob Foc/Mod Complexity 25 [...] above. Jessica Lopez MD Anesthesiology, PGY-1 Pager [phone] lechano, MD Agus - 0 05/05/2013 2:15 [...] disorder 11) Developmental delay AGUS HU MD Manager [employer] Division of Hospital Medicine Department of Internal Medicine [facility] DEPARTMENT: Hosp- [id number] Place of Service: Date of Service: 05/05/2013 CSN: [id number] Modifiers:GC Resident Involved: Yes Suggested CPT: 28172 Subsequent Visit Exp Prob Foc/Mod Complexity 25 [...] above. Jessica Lopez MD Anesthesiology, PGY-1 Pager [phone] Jay Jay Howell MD - 05/04/2013 5:22 [...] Jay Grimaldo MD Internal Medicine, PGY-3 Pager [phone] Deion Lomeli - 2012 4:52 PM PDTTransthoracic [...] disorder 11) Developmental delay AGUS HU MD Manager [employer] Division of Hospital Medicine Department of Internal Medicine [facility] DEPARTMENT: Hosp- [id number] Place of Service: - Date of Service: 05/04/2013 CSN: [id number] Modifiers:SEUN Resident Involved: Yes Suggested CPT: 56315 Subsequent Visit Exp Prob Foc/Mod Complexity 25 min aDaniel hannah MD - 8:47 AM PDT Neurology Follow Up Note Author: RAYNE HAMLIN MD Attending: Agus Hu MD Date: 05/04/2013 8:48 AM Patient: Keo Lane [facility] Day: 2 ID: Keo Lane [...] Hamlin MD Department of Neurology PGY-1 Pager [phone] PGY-4 Addendum I can follow as her [...] she [facility] where she was, she said [facility] She thought it to be 2008. A/P: [...] Jay Grimaldo MD Internal Medicine, PGY-3 Pager [phone] elenAviva - 2012 2:19 PM PDT INPATIENT PROGRESS NOTE Hospital Day:2 Author: AVIVA WATKINS Attending Physician: Agus Hu MD 24-hour events -- Episode of seizure with full body shaking 20s in duration per nursing report. At [facility] ruby luation, found to be post-ictal [...] subsequently started on phenytoin. Last seizure per e learning manager was 03/26 but e learning manager was unaware that she had a seizure [...] assessment and plan. Aviva Watkins MS4, Pager [phone] Alexandrea, Too Bruno MD - 05/03/2013 1:52 [...] to knee B/L, +1 edema up to [facility] residential b/l Psychiatric: appropriate mood and affect, cooperative [...] above. Jessica Lopez MD Anesthesiology, PGY-1 Pager [phone] documented in this enco unter H&P Notes Onur Schwab MD,MPH - 05/10/2013 1:42 PM PDTFormatting of this note might be diff erent from the original. INTERVENTIONAL CARDIOLOGY Pre Procedure History and Physical PCP: Gela Trimble NP Referring Title I Teacher: Tello Gr MD Cath Attending: Allison Brody [...] Family History of Premature CAD: unknown Prior NE: no Prior Heart Failure: no Prior Valve [...] 1 Patch 1 Patch Transdermal DAILY Judi Houtson MD 1 Patch at 05/10/13 0815 omeprazole [...] alert, mild distress and cooperative, obese HEENT: [place] conjuctivae and moist tongue Neck: short, difficult [...] Developmental delay 12) hypothyroid AGUS HU MD Manager [employer] Division of Hospital Medicine Department of Internal Medicine [facility] DEPARTMENT: Hosp- [id number] Place of Service: Date of Service: 05/03/2013 CSN: [id number] Modifiers:GC Resident Involved: Yes Suggested CPT: 82556 Initial Visit Comp/High Complexity 70 min ay, [...] pHTN per report. HPI: Patient lives at [facility] which is Group adult home in [place], [place]. Care give r at bed side during interview. States that over the past month(s) patient's breathing has b ecome increasingly short and has gained "at least 20 pounds". Also with worsened LE edema. She initially presented to [facility] on after presented with recurrent s eizure [...] she has been using regularly. Transferred to [facility] from OSH-ED after presenting this am with [...] to 100/80s. Initial vitals on arrival at [facility] were T 36.6 BP 110/69 P 74 RR 20 Spo2 90-93 % on 5 LNC At beside patient states she has had no fevers or chills recently. States that swelling in her legs is persistant and is worse than normal espiecially this morning. States was short of breath earlier during ambulance ride that has now improved since getting IV lasix in [facility] e. Staes that she feels well [...] cocaine nothing since SH: Son lives in [place] who is 30 and estranged. Friend Desmond [...] JUDI HOUSTON MD Internal Medicine PGY-2 Pager [phone] documented in this en counter Procedure Notes Other, Faculty - 05/11/2013 8:40 AM PDTAssociated Order(s): CARDIOLOGYElectronically shereen d by Faculty Other at 05/11/2013 8:40 AM Allison Pandey MD - 05/10/2013 2:13 PM PDTAss ociated Order(s): RIGHT HEART CATHETERIZATIONProcedure(s): RIGHT HEART CATHETERIZATIONCARDIA C BLOCK SORTER PATIENT NAME: Keo Lane [facility] #: [id number] AGE: 47 y.o. SEX: female CATH DATE: [...] Using the standard Seldinger technique, an 8 Emirati sh eath was placed in the jugular [...] of this report. MD Allison Yañez M.D. Manager [employer] Division of Cardiovascular Medicine [facility] ther, Faculty - 05/08 9:18 AM PDTAssociated [...] Apply 1 Patch to skin once daily. Suches-3 Fatty Acids-Vitamin E (FISH OIL) 1,000 mg [...] t o be complete and accurate. This SODA WORKER list has been updated to reflect any discrepancies found during the med rec interv iew. Note - Updated Divalproex regimen per facility MAR: 250 mg every morning and 500 mg ever y evening A total of 15 minutes were spent reviewing the prior to admission medication list note writ ten by pharmacy graduate intern, Sanjana For any further questions regarding this information contact pharmacy, pager #[phone] Thank you, Lexie Cook Pharm.D. [place] [phone] Sanjana Baker - 0 05/11/2013 12:06 PM PDT Pharmacy Services: Admission Medication Reconciliation Medication Source/Reliability: Did not speak to patient. [employer]. Sent their MAR I reviewed patient's home [...] Allergies: Was unable to speak to patient. [facility] has the allergies below on file, with the addition of peas. Allergies Allergen Reactions Erythromycin Flagyl (Metronidazole) Penicillins Sulfa (Sulfonamide Antibiotics) Keo Lane is a 47 year old female admitted to for volume overload, pulmonary HTN. The patient s most recent medication information was obtained from [facility] [place], where the patient lives. Pharmacy Preferences: No preferred pharmacy on file. [facility] arranges for the patients medications The above [...] information contact the Medication Reconciliation Pharmacist, pager #[phone] Thank you, Sanjana Farah Student pager ID number [phone] PharmD candidate year [phone] Hung Mccrary MD - 05/11/2013 8:41 AM [...] Aye Carrillo MD Internal Medicine, PGY-1 Pager [phone] Late entry for 11 May: Pt interviewed [...] and management. Tello Humphries M.D. Director, Electrophysiology Shoemaker Apprenticenumerical control machine tool operator [facility] Cardiovascular [facility] [place] [address] eslee Archer howard H - 05/10/2013 8:38 [...] Tammie Archer MD Internal Medicine, PGY2 Pager: [phone] Hung Mccrary M D - 05/10/2013 8:11 [...] Aye Carrillo MD Internal Medicine, PGY-1 pager [phone] Pt interviewed & examined by me, reviewed w Dr. Carrillo whose note states our findings, imp r & recs in full. Artie Brown oleKate hector - 05/09 12:42 PM PDT TOBACCO CESSATION CONSULT 05/09/[address] [id number] Patient Status at Consult: Pt was very [...] with cessation. Encouraged patient to call the [place] Tobacco Quit Line [phone]- QUIT-NOW for counseling. 7. Recommendations: For comfort [...] 8-10 weeks in duration. 8. Planned Follow-up: [facility] Smoking Cessation Center will follow-up with patient via telepho ne after discharge for cessation support. Assessment 305.1 Tobacco Use Disorder No past medical history on file. Allergies Allergen Reactions Erythromycin Flagyl (Metronidazole) Penicillins Sulfa (Sulfonamide Antibiotics) Kate Alba MA, [facility] Tobacco Perfumer [facility] Smoking Cessation Center [phone] [email or web address] Hung Mccrary MD - 05/09 11:52 AM [...] tolerated Aye Carrillo MD Internal Medicine, PGY-1 [id number] Late entry for 09 May: Pt interviewed [...] her physiology. Tello Humphries M.D. Director, Electrophysiology Shoemaker Apprenticenumerical control machine tool operator [facility] [place] [phone] eslee Archer H - 05/09/2013 11:39 AM [...] home O2 who presented on 05/02/2013 from [facility] in [place] with volume overload. Caregiver tells me [...] of 75mmHg. Pt was seen by a Title I Teacher in [place] who recommended Sleep Study and PFTs as [...] cocaine nothing since SH: Son lives in [place] who is 30 and estranged. Friend Desmond [...] EKG NSR, rate of 71, RA deviation, [place] of 200ms and QTC of 480ms. No [...] Tammie Archer MD Internal Medicine, R2 pager [phone] Demetra Hung, M D - 05/08/2013 6:00 [...] AM PDTTOBACCO CESSATION CONSULT 05/08/[address] [id number] Goal: Tobacco Cessation Consult Outcome: Goal unable [...] to speak to patient. Kate Alba MA, [facility] Tobacco Perfumer [facility] Smoking Cessation Center [phone] [email or web address] Hung Mccrary MD - 05/07 9:42 AM [...] ordered for tomorrow. Christiano montes clinical pharmacist (#[phone]) or call central inpatient pharmacy ([phone]) with [employer]. Thank you, Violeta Saxena PharmD, [facility] Pager [phone] signed by Violeta Saxena PharmD at 05/07/2013 8:59 AM Javad Lopez MD - 05/06/2013 10:02 AM PDTI performed a history and physical examination of the patie nt and discussed her management with the resident. I reviewed the resident s note and agr ee with the documented findings and plan of care. LISA RIVERS MD [address] [facility] Mailcode: [address] [place] [address] [id number] [facility] DEPARTMENT: [facility]- [id number] Place of Service: [facility] Date of Service: 05/29/2013 CSN: [id number] Modifiers:GC Resident Involved: yes Suggested CPT: 72182 Subsequent Visit Exp Prob Foc/Mod Complexity 25 [...] noted. Leobardo Rocha MD pgy2 Internal Medicine, [id number] Lisa Lopez MD - 03/2013 9:48 AM PDTI performed a history and physical examination of the patient and discus sed her management with the resident. I reviewed the resident s note and agree with the d ocumented findings and plan of care. LISA RIVERS MD [address] [facility] Mailcode: [address] [place] [id number] [facility] DEPARTMENT: [facility] [id number] Place of Service: [facility] Date of Service: 05/29/2013 CSN: [id number] Modifiers:GC Resident Involved: yes Suggested CPT: 23993 Subsequent Visit Detailed/High complexity 35 min Leobardo [...] noted. Leobardo Rocha MD pgy2 Internal Medicine, [id number] Aye Fletcher MD - 05/04/2013 3:51 PM [...] daily activities under the supervision of her assisted for DD until 03/26 when she was [...] rapidly increasing edema and was transferred to [facility] for further evaluation. In route to [facility], EMS observed an acute desaturation (90-->83% on [...] with rheumatic fever. Social Hx: Lives in assisted. 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 Smoking hx- [...] labs: -elevated BNP- 220 -Negative troponin -AB.44 [facility]: CBC unremarkable. Mild thrombocytopenia. BMP wnl. Corrected calcium wnl. Elevated ALT/AST, Alk phos, and NH4 (84). Decreased albumin and total protein. Normal bili. TSH wnl Subtherapeutic phenytoin and valproic acid. Urine: Positive LCE, large WBC. Culture pending. Imaging: CXR 05/02 ([facility]): Mildly enlarged cardiac silhoette. Small L pleural [...] PE -Recommend repeat of TTE here at [facility] -Recommend scheduling pt for PFTs given risk factors for COPD and new O2 requirement. -Given new dx of GLORIA, would consider input from [facility] sleep medicine. -If normal PFTs, appropriate to obtain right heart cath for further evaluation -Continue O2 therapy Other issues per primary team. Appreciate consult and will continue to follow. Aye Carrillo MD Internal Medicine, PGY-1 [id number] letrey, Rosalina Branch MD - 05/03/2013 4:44 [...] month. Per notes she was admitted to [facility] 03/26/13 with a reported recurrent seizure in [...] alcohol, lives in Group adult home in [facility] Family: no family history of seizures Physical [...] plan. Daniel Cerna MD PGY-4 Neuro pgr [phone] documented in this e ncounter Miscellaneous Notes [...] orders completed and faxed to Isai at [facility]. Spoke with Isai earlier, explained we were [...] AM. Packet for SN F taken to [facility] desk to go with pt. [facility] stretcher transport with oxygen confirmed f or 12 noon pickup. RN to RN report to be called to [phone]. MARANDA Champion [address] [facility] Mailcode: [address] [place] [phone] lan of Demond Rhett Christian Ojeda [...] of hospitalization: Pulmonary Hypertension - transferred from [facility] to ED with 1 month of [...] Family contact/psych-social issues: Developmentally delay, has a career technical supervisor present at beds deb during the day, staying locally at a hotel at night, is an employee of the patients long-term. Patient likes to talk about fishing. Did [...] of hospitalization: Pulmonary Hypertension - transferred from [facility] to ED with 1 month of [...] Family contact/psych-social issues: Developmentally delay, has a career technical supervisor present at beds [facility] during the day, staying locally at a hotel at night, is an employee of the patients long-term. Patient likes to talk about fishing. Did [...] Christian Ojeda at 05/11/2013 6:51 PM PDTPlan [facility] Ailin Scott - 04/30 2:02 PM PDTProblem: Case Management Goals Goal: Discharge Needs Met Outcome: Expected progress toward goal Attempting all day to facilitate DC to [facility]. Spoke wit Dr. Lopez several times, as well as Isai, Admissions at [facility]. Our MD has been trying to reach the SNF MD all day, unsuccessfully. I was just given the information to call the [facility] ([phone]) and ask for the MD canadian bacon tier for Dr. Carrillo (who is on vacat ion), as my MD has been unsuccessful in reaching Dr. Ansari ([phone]) to discuss contin ued diuresis plans. We are unable to arrange Medicaid stretcher transport before 1830 hours today, which puts the patient arriving at [facility] very late tonight. All agreed on plans for D C tomorrow, stretcher transport for 1100 am, notified SNF of plans. RN to RN report to be c alled to [facility] at [phone]. MARANDA Champion [address] [facility] Mailcode: [address] [place] [id number] lan of Care - Christian Ojeda - [...] of hospitalization: Pulmonary Hypertension - transferred from [facility] to ED with 1 month of [...] Family contact/psych-social issues: Developmentally delay, has a career technical supervisor present at beds deb during the day, staying locally at a hotel at night, is an employee of the patients long-term. Patient likes to talk about fishing. Did [...] care. Thank you, Maritza Koch, OTR/L Page [phone] lan o f Maritza Jacobo, OT - [...] overload from core pulmonale 2/2 pulmonary hypertension. ([facility] 05/09 ) Relevant Precautions: Fall risk, mild developmental delay, monitor pulse and o2 sats with further activity No past medical history on file. No past surgical history on file. Living Environment: Pt lives in care facility in [place], 24 hour assist Prior Level of Function: Pt reports she typically completes dressing independently but for last several weeks has been requiring assist, typically gets to the restroom on her own and completes hygiene independently, does not use adaptive equipment for ambulation. Pt report s she likes to play [employer] Patient / Family Goal: To go home [...] heart cath later this afternoon. T/C to [facility] in [place], directed to pt's "coordinator", Gustavo ([phone]). He states the Home pt resides in [...] Await his return call. Ailin Scott, RN 7845 T/C from Gustavo, states he spoke with his Head Rose Grower, they cannot accommodate pt. She will need to go to a SNF for rehab. He states they send many of their clients to [facility]. T/C to Isai at [facility], she confirms they have a bed o pening and requests we fax information. Met with pt to discuss plans. She is in agreement with [facility]. Tasked to have SNF search send to [facility]. Attempting to obt ain PASR for MR/DD client, have call into [facility] at [phone], as well as [employer] on Coordinator, Jaime, at [place] Medicaid Office. Ailin Scott RN 1413 T/C from [facility] at [facility], they can accept pt tomorrow. PASR form completed by me (with assistance from Jaime as mentioned above). [facility] will also contact Medicaid [employer] for her own authorization. Notified Gustavo at [facility] that Keo has b een accepted to [facility]. Notified Dr. Lopez that SNF bed available for tomorrow. Will arrange Medicaid transport (they have to come from [facility]) today. MARANDA Champion [address] Mailcode: [address] [place] [address] [id number] AILIN SCOTT [address] Mailcode: [address] [place] [id number] lan of Demond - Rosana Brar, PT - 05/10/2013 11:49 AM PDTPhysical Therapy 05/10/2013 11:49 AM Hospital Day # 8. Patient seen on 7C Brief Hospital Course: Keo Lane is a 47 y/o F with PMHx morbid obesity, GLORIA, COPD (on h ome O2), bipolar/PTSD, developmental delay, hypothyroidism, and seizure disorder transferred [facility]SH [facility] pulmonary [facility]. ([facility] 05/09 ) Status Update: pt to go [...] continued PT intervention. Pt is a good Custodial Facility candidate. Activity Plan: Up to bedside commode or chair with 2 person staff consultant assist for safety. Up for all meals [...] of hospitalization: Pulmonary Hypertension - transferred from [facility] to ED with 1 month of [...] Family contact/psych-social issues: Developmentally delay, has a career technical supervisor, Tila, present at bedside during the day. Staying locally at a hotel at night. Tila is an employee of the patients long-term. Patient likes to talk about fishing. Did [...] RN at 05/10/2013 6:53 AM PDTPlan [facility] Jose Aguiar RN - 05/09/2013 10:50 [...] Aguiar RN at 3 10:50 PM PDTPlan [facility] - Christian Ojeda - 05/09/2013 4:48 [...] ad uriah Living Environment: Lives in a assisted with 24hr caregivers in [place]. One caregiver, Dominique, is present at time of evaluation and able to provide further information. Pt defers to caregiver to provide info. There are several buildings within [facility] system, inclu ding the medical house, where [...] it girlie!" appeared eager to participate. Communication: Lithuanian Barriers: none specific. Per caregiver, pt much [...] chair only. Not safe today to progress. [facility] BASIC MOBILITY How much difficulty does the [...] could provide this level of care within [facility] where she lives. She will need a facility which can provide her heavy physical assi st and would benefit from additional PT to progress mobility and strength. Pt appropriate fo r inpt PT to address deficits. Interpretation of [facility] Short Form - Basic Mobility: Score (in [...] reviewed. Juana Naylor RD, LD Pager # [phone] andoff - Codey koroma, Jose Otoole RN - 05/09/2013 6:31 AM PDTNursing Handoff Report: Primary focus of hospitalization: Pulmonary Hypertension - transferred from [facility] to ED with 1 month of [...] Family contact/psych-social issues: Developmentally delay, has a career technical supervisor, Tila, present at bedside during the day. Staying locally at a hotel at night. Tila is an employee of the patients long-term. Patient likes to talk about fishing. Did [...] focus of hospitalization: Pulmonary Hypertension- transferred from [facility] to ED with 1 month of [...] Family contact/psych-social issues: Developmentally delay, has a career technical supervisor, Tila, present at bedside during the day. Staying locally at a hotel at night. Tila is and employee of [facility] patients long-term. Patient likes to talk about fishing. Did [...] hospital encounter. Lives With: Caregiver Living Arrangement: Correction in [place] Functional Level Prior to Admission: 2-->assistive person [...] showing pHTN per report. Patient lives at [facility] which is Group adult home in [place], [place]. Care give r present.States that over the past month(s) patient's breathing has become increasingly j luis rt and has gained "at least 20 pounds". Also with worsened LE edema. Anticipated Discharge Needs: Return to [facility] with assist, Home O2 Assessment [place] [id number] lan of Marek West RN - 05/08/2013 [...] AM PDTPrimary focus of stay: Transferred from [facility] f or further work up. R heart [...] shift Psych/social issues: Developmentally delayed, has a career technical supervisor, Tila, present during the d ay. Staying locally at a hotel at night. Tila is and employee of the pt's long-term. Pt lik es to talk about fishing. [...] PM PDTPrimary focus of stay: Transferred f [facility] for further work up. R heart failure, [...] shift Psych/social issues: Developmentally delayed, has a career technical supervisor, Modesta present during the day. Staying locally at a hotel at night. Modesta indicated that she will be relieved by ano ther caregiver from the pt's care center if her stay at [facility] becomes extended. Pt likes to t alk [...] as tolerated to sats >92%. valuation - [facility] kriss, Zeb Self RN - 05/07/2013 6:44 [...] AM PDTPrimary focus of stay: Transferred from [facility] f or further work up. R heart [...] shift Psych/social issues: Developmentally delayed, has a career technical supervisor, Modesta present during the day. Staying locally at a hotel at night. Modesta indicated that she will be relieved by ano ther caregiver from the pt's care center if her stay at [facility] becomes extended. Pt likes to t alk [...] PM PDTPrimary focus of stay: Transferred from [facility] for further work up. R heart [...] shift Psych/social issues: Developmentally delayed, has a career technical supervisor, Modesta present during the day. Staying locally [...] PM PDTPrimary focus of stay: Transferred from [facility] for [facility] er work up. R heart failure, Pulmonary [...] shift Psych/social issues: Developmentally delayed, has a career technical supervisor, Modesta present during the day. Staying locally [...] stay: Pulmonary Hypert ension - transferred from [facility], MR/DD, seizure d/o, and copd in the ED with 1 month of progressive sob and fluid retention. Pt is in need of further workup with no capaci ty at the current hospital. Pt seen by PCP this am who referred pt to station air traffic control specialist who perfo rmed an echo and found [...] stand by assist. C are givers from [place] at bedside. Inhalers by bedside. Oxygen at 2.5L/min per NC(SaO2 > 92%). Oxygen saturation <92 with 2L/min per NC. Heart failure packed and education done today. Orders to follow up on: wean off O2 for SaO2 >92%. Last pain assessment/reassessment: denied pain, but gave one tab tylenol for comfort this m orning. Psych/social issues: Developmentally delayed, has a career technical supervisor, Modesta present during the day. Patient likes to [...] st ay: Pulmonary Hypertension - transferred from [facility], MR/DD, seizure d/o, and co pd in [...] pain Psych/social issues: Developmentally delayed, has a career technical supervisor, Tila - she is present duri ng [...] able to state her na me, her clay dry press mixer operator were weak bilaterally and she needed a deandre lift back to bed. The patient be came tearful and stated she did not know what happened. The patient's vital signs were stab le and per the telemarketer supervisor she was in NSR in the [...] but unable to s hdez her name. WIRE MILL OPERATOR called, notified, remained with pt. VS remained stable, pt remained in sinus rhythm per hvac residential service technician. Lift team called and pt put back [...] of stay: Pulmonary Hypertension - transferred from [facility], MR/DD, seizure d/o, and copd in the ED with 1 month of progressive sob a nd fluid retention. Pt is in need of further workup with no capacity at the current hospital . Pt seen by PCP this am who referred pt to station air traffic control specialist who performed an echo and found pul [...] pain Psych/social issues: Developmentally delayed, has a career technical supervisor, Tila - she is present cayla the [...] Nutrition Education Pt developmentally delayed. Lives in assisted. Caregiver is Dominique. Spoke with Dominique and pt today to offer low sodium diet education. Pt eating lunch (includes mashed potatoes with gravy, brownie, watermelon, plus some other items). Dominique states that assisted provides all meals for pt. There is [...] moderate compliance. Following Jazmyn Mcginnis RD Pgr #[id number] Comments: Unuw-kbt-omlmnccws-related knowledge deficit r/t lack of prior exposure [...] exact wt Est needs using obesity guidelines: 5151-9872 kcal (18-23/kg AdjBW), 90g pro (2g/kg IBW) Moraima - Dario Aguiar RN - 05/04/2013 6:03 AM PDTPrimary focus of stay: Pulmonary Hypertension - transfe rred from [facility], MR/DD, seizure d/o, and copd in the ED with 1 month of progres sive sob and fluid retention. Pt is in need of further workup with no capacity at the [facility]. Pt seen by PCP this am who referred pt to station air traffic control specialist who performed an echo and found pulmonary [...] pain Psych/social issues: Developmentally delayed, has a career technical supervisor, Tila - she is present duri ng [...] focus of stay: Pulmonary Hypertension- transferred from [facility] 47 yo f with bipolar d/o, hypothyroidism, [...] labs. Psych/social issues: Developmentally delayed, has a career technical supervisor, Tila- she is present demarco gaona the [...] focus of stay: Pulmonary Hypertension- transferred from [facility] 47 yo f with bipolar d/o, hypothyroidism, MR/DD and reported htn, seizure d/o, and copd in the ED with 1 month of progressive sob and fluid retention. Pt is in need of further workup with no capacity at the current hospital. Pt seen by PCP this am who referred pt to [facility]olo [facility] who performed an echo and found pulmonary [...] pain. Psych/social issues: Developmentally delayed, has a career technical supervisor, Tila- she is present [facility] the day. Last patient visit (i.e. Falls/Activity/Comfort/Environment/Toileting/Skin): Lozano cath Anticipated or pending procedures: Will need TTE [facility] Ben May - 05/02/2013 8:29 PM PDTAmb report: C3, Pulmonary edema, issue keeping blood pressure up, BP 70/p, ETA 5 Advised 7C charge. [facility] FlintBen De La Garza - 05/02/2013 2:44 PM PDTPaged grp 18 ransfer Note - Damián Cervantes MD - 05/02/2013 2:34 PM PDTI NPATIENT MEDICINE TRANSFER CENTER NOTE General Medicine Wire Harness Assembler Attending Author; DAMIÁN CERVANTES MD PCP: No primary provider on file. No primary physician on file. Phone: None FAX: None REFERRING MD: Dr. Bowen (ED MD [facility]) REFERRING SITE: [facility] REASON/GOAL OF TRANSFER: Evaluation and possible treatment [...] delay 5. Bipolar disorder DAMIÁN CERVANTES MD numerical control machine tool operator Division of Hospital Medicine Department of Medicine [facility] [place] [address] [place] [address] ormerly [facility] - Xiang May - 05/02/2013 2:28 [...] [facility] | [address] | [place] [address] | | | SERVICES, CORE | PARK [...] [facility] | [address] | [place] [address] | | | SERVICES, CORE | PARK [...] | | | LABORATORY | | | ZAMBIAN | | | SERVICES, | | | [...] the MDRD equation recommended by the | [facility] | | National Kidney Disease Education Program. [...] [facility] | [address] | [place] [address] | | | SERVICES, CORE | PARK [...] [facility] | [address] | [place] [address] | | | SERVICES, CORE | PARK [...] | + + + + + | [facility] | [address] | [place] [address] | | | JULIETA, ELMER | NADJA [...] | + + + + + | [facility] | [address] | [place] [address] | | | SERVICES, CORE | NADJA [...] [facility] | [address] | [place] [address] | | | SERVICES, ELMER | PARK [...] | | | LABORATORY | | | ZAMBIAN | | | SERVICES, | | | [...] | + + + + + | [facility] | [address] | [place] [address] | | | SERVICES, [facility] | [address] | | | + [...] [facility] | [address] | [place] [address] | | | SERVICES, CORE | PARK [...] [facility] | [address] | [place] [address] | | | SERVICES, CORE | PARK [...] | | | LABORATORY | | | ZAMBIAN | | | SERVICES, | | | [...] | + + + + + | [facility] | [address] | [place] [address] | | | SERVICES, [facility] | [address] | | | + [...] by | | | | | | [employer],[address] | | | | | | Lázaro Carter, [facility],[place] | | | | | | [address] | | | | | | [phone].[employer]. | | | | | | Zane [...] [facility] | [address] | [place], [place] | | | UN[facility] P[facility] | | [address] | | + + + + + [...] | + + + + + | [facility] - | [address] | [place] [address] | | | [place] | | | | + + + [...] LABORATORY | [address] | [place] [address] | | | SERVICES, SPECIAL | PARK [...] | + + + + + | [facility] | [address] | [place] [address] | | | JULIETA, ELMER | PARK [...] | + + + + + | [facility] | [address] | [place] [address] | | | SERVICES, CORE | NADJA [...] | | | LABORATORY | | | ZAMBIAN | | | SERVICES, | | | [...] [facility] | [address] | [place] [address] | | | SERVICES, CORE | NADJA [...] | + + + + + | [facility] | [address] [facility] [facility] | [place] [address] | | | SERVICES, CORE | NADJA [...] | | | LABORATORY | | | ZAMBIAN | | | SERVICES, | | | [...] [facility] | [address] | [place] [address] | | | SERVICES, CORE | PARK [...] | + + + + + | [facility] | [address] | [place] [address] | | | SERVICES, ELMER | NADJA [...] + + + + + + | BRG34-17% | 0.75 | 2.52 L/sec | [facility] | | | PRE | | | SPECIAL | | | | | | DIAGNOSTICS | | | | | | - | | | | | | PULMONARY | | | | | | FUNCTION | | + + + + + + | GCK84-80% | 30 | % | [facility] | [...] [facility] | | | INTERPRETAT | ID# [id number] | | SPECIAL | | | ION [...] HU | | | | | | Bow Maker Machine Tender: | | | | | | TONI [...] | | | | | | Order# [id number] | | | | | | | [...] | | | | | | 68 45LMI41-61% | | | | | | L/sec 2.52 | | | | | | 0.75 | | | | | | [id number] L/sec | | | | | | | | | | | | 0.75PEF | | | | | | L/sec 6.04 | | | | | | 2.67 [id number]% | | | | | | L/sec [...] ID: | | | | | | [id number] | | | | | | Date: [...] [facility] | [address] | [place], [place] | | | DIAGNOSTICS - | [address] | [address] | | | PULMONARY FUNCTION | | [...] [facility] | [address] | [place] [address] | | | SERVICES, CORE | PARK [...] | + + + + + | [facility] | [address] | [place] [address] | | | SERVICES, CORE | NADJA [...] | | | LABORATORY | | | ZAMBIAN | | | SERVICES, | | | [...] | + + + + + | [facility] | [address] | [place] [address] | | | SERVICES, CORE | PARK [...] | + + + + + | [facility] | [address] | [place] [address] | | | SERVICES, ELMER | NADJA [...] | + + + + + | [facility] | [address] | [place] [address] | | | JULIETA, ELMER | NADJA [...] [facility] | [address] | [place] [address] | | | SERVICES, ELMER | PARK [...] | | | LABORATORY | | | ZAMBIAN | | | SERVICES, | | | [...] | + + + + + | [facility] | [address] | [place] [address] | | | [facility], [facility] | [address] | | | + [...] | + + + + + | [facility] | [address] | [place] [address] | | | SERVICES, CORE | [address] | | | + + + + + MAGNESIUM, PLASMA (05/05/2013 7:34 AM PDT) + +-------+ + + + [...] | + + + + + | [facility] | [address] | [place] [address] | | | SERVICES, CORE | PARK [...] | + + + + + | [facility] | [address] | [place] [address] | | | SERVICES, CORE | NADJA [...] | + + + + + | [facility] | [address] | [place] [address] | | | SERVICES, CORE | NADJA [...] | | | LABORATORY | | | ZAMBIAN | | | SERVICES, | | | [...] | + + + + + | [facility] | [address] [facility] | [place] [address] | | | SERVICES, ELMER | NADJA [...] [facility] | [address] | [place], [place] | | | ANNA POINT OF CARE | [address] | [address] | | | TESTS | | | [...] + + | [facility] | [address] [facility] [facility] | [place] [address] | | | SERVICES, CORE | PARK [...] | + + + + + | [facility] | [address] | [place] [address] | | | SERVICES, CORE | NADJA [...] [facility] | [address] | [place] [address] | | | SERVICES, CORE | PARK [...] [facility] | [address] | [place] [address] | | | SERVICES, CORE | PARK [...] | | | LABORATORY | | | ZAMBIAN | | | SERVICES, | | | [...] | + + + + + | [facility] | [address] | [place] [address] | | | [facility], [facility] | [address] | | | + + + + + EEG ROUTINE (05/04/2013) + + + | Narrative | Performed At | + + + | Patient Name: Keo Lane Date of : 1965 Medical | [facility] - | | Record Number: [id number] Date of Test: 05/04/2013 Place of Service: | [facility], | | [facility] [phone] [facility] Department: EEG [facility] - [phone] | POINT OF CARE | | ROUTINE [...] Modifier: GC - Resident Present Suggested CPT: 97975 - EEG Routine | | | Awake Only Suggested Dx: 780.39 - Convulsions | | + + + + + + + + | Performing | Address | City/State/Zipcode | Phone Number | | Organization | | | | + + + + + | [facility] | [address] | [place], [place] | | | ALONSO [facility] | [address] | [address] | | | TESTS | | | [...] | + + + + + | [facility] | [address] | [place] [address] | | | SERVICES, CORE | [address] [...] | | | LABORATORY | | | ZAMBIAN | | | SERVICES, | | | [...] | + + + + + | [facility] | [address] | [place] [address] | | | SERVICES, CORE | NADJA [...] | [facility] | | Test performed by: [facility] [address] | REFERENCE LAB | | [place] [address] | | + + + + + [...] | + + + + + | [facility] | [address] | [place] [address] | | | SERVICES, CORE | NADJA [...] | | | Final CULTURE | | [place] | | | | RESULT:No growth (<1000 [...] + | [facility] - | [address] | [place] [address] | | | [place] | | | [...] | 1.023 | 1.005 - 1.030 | [facility] | | | GRAVITY | | | [...] | + + + + + | [facility] | [address] | [place] [address] | | | SERVICES, CORE | [address] | | | + + + [...] LABORATORY | [address] | [place] [address] | | | SERVICES, CORE | PARK [...] [facility] | [address] | [place] [address] | | | SERVICES, CORE | PARK [...] [facility] | [address] | [place] [address] | | | SERVICES, CORE | PARK [...] | | | LABORATORY | | | ZAMBIAN | | | SERVICES, | | | [...] | + + + + + | [facility] | [address] | [place] [address] | | | SERVICES, [facility] | [address] | | | + [...] | + + + + + | [facility] - | [address] | [place] [address] | | | [place] | | | [...] + | [facility] - | [address] | [place] [address] | | | [place] | | | | + + + [...] HUMPHRIES | | | | | | ([phone]) on 05/24/2013 | | | | | | 9:44:07 PM | | | | + + + + + + + + | Specimen | + + | | + + + + + | Narrative | Performed At | + + + | Please click | [facility] DEPT OF | | on view image for the detailed interpretation from [employer] results. | CARDIOLOGY | + + + + + | Procedure Note | + + | Interface, Cardiology Results - 05/24/2013 9:44 PM PDT Please click on view image | | for the detailed interpretation from [employer] results. | + + + + + + + | Performing | Address | City/State/Zipcode | Phone Number | | Organization | | | | + + + + + | [facility] | [address] | [place], [place] | | | CARDIOLOGY | [address] | [address] | | + + + + + [...] view image for the detailed interpretation from [employer] results. | CARDIOLOGY | + + + + + | Procedure Note | + + | Interface, Cardiology Results - 05/04/2013 11:36 AM PDT Please click on view image | | for the detailed interpretation from [employer] results. | + + + + + + + | Performing | Address | City/State/Zipcode | Phone Number | | Organization | | | | + + + + + | [facility] | [address] | [place], [place] | | | CARDIOLOGY | [address] | [address] | | + + + + + [...] [facility] | [address] | [place] [address] | | | SERVICES, CORE | [address] [...] [facility] | [address] | [place] [address] | | | SERVICES, EL[place]RE | [address] | | | + [...] [facility] | [address] | [place] [address] | | | ELMER RENDON | [address] [...] | | | LABORATORY | | | ZAMBIAN | | | SERVICES, | | | [...] | + + + + + | [facility] | [address] [facility] | [place] [address] | | | SERVICES, [facility] | [address] | | | + [...] | | | | First dose on [facility] 05/03/13 at 0900, | | | | [...] PDT | | | | | on [facility] 05/03/13 at 1415, Last dose | | | | | | | on [facility] 05/05/13 at 2100 | | | | [...] | | | DAILY, First dose on [facility] 05/03/13 | | AM PDT | | [...] | | 8 HOURS, First dose on [facility] 05/03/13 | | AM PDT | | [...] 8:57 | | | | | on [facility] 05/03/13 at 0900, Until | | AM [...] | | | | First dose on [facility] 05/03/13 at | | AM PDT | [...] AM PDT | | | | | [facility] 05/03/13 at 0900, Until | | | [...] | | | oral, ONCE, 1 dose, [facility] 05/10/13 | | PM PDT | | [...]
--- OUTSIDE RECORDS SUMMARY | ~2020-07-30 | XMS | Encounter Summary ---
Demographics + + + | Address | [address] | | | [place] [address] | + + + | Home Phone [...] + | [employer] | ECON | [phone] | | | | | Unknown | | + + + + + Care Team Providers + +------+ + | Care Webfed Offset Press Operator Name | Role | Phone | + +------+ + | Gela Trimble NP | PCP | | + +------+ + Encounter Details +--------+ + + + + | Date | Type | Department | Care Team | Description | +--------+ + + + + | 09/17/ | Hospital | [facility] | [place], | Primary pulmonary | | 2012 | Encounter | [facility] LAB[facility]ORY | Vera Farrar MD | hypertension (HCC) | | | | [address] | | | | | | [place] | | | | | | [address] | | | | | | [phone] | | | +--------+ + + + [...] + + + +---------+ + + | [place] Starch POWD | by Does not apply [...] + + + +---------+ + + | [place]-3 Fatty | Take by mouth. | | [...] 116 (H)Comment: Testing | <100 pg/mL | LINDAE | | | | performed on the Kathryn | | [facility] | | | | [facility] | | MEDICAL | | | [...] | [facility] | [address] | [place] | [phone] | | [facility] | | [address] | | | - LABORATORY | | | | + + + + + | [facility] | [address] | [place] | | | [facility] | | [address], [facility] | | | - LABORATORY | | | | + + + + + documented in this encounter Visit Diagnoses + + | Diagnosis | + + | Primary pulmonary hypertension (HCC) Primary pulmonary hypertension | + + documented in this encounter"
--- OUTSIDE RECORDS SUMMARY | ~2020-07-30 | XMS | Encounter Summary ---
Demographics + + + | Address | [address] | | | [place] [address] | + + + | Home Phone [...] + | [employer] | ECON | [phone] | | | | | Unknown | | + + + + + Care Team Providers + +------+ + | Care Junior Sales Representative Name | Role | Phone | + +------+ + | Yuni Shrestha | PCP | | + +------+ + Encounter Details +--------+ + + + + | Date | Type | Department | Care Team | Description | +--------+ + + + + | 06/30/ | Abstract | [facility] [place] | [facility], | | | 2015 | | GASTROENTEROLOGY | BRITTANY Maddox [address] | | | | | [address] [place] | [address] | | | | | [address] [place], [place] | [place], [place] | | | | | [address] | [address] | | | | | [phone] | | | +--------+ + + + [...]
--- OUTSIDE RECORDS SUMMARY | ~2020-07-30 | XMS | Encounter Summary ---
Demographics + + + | Address | [address] | | | [place] [address] | + + + | Home Phone [...] + | [employer] | ECON | [phone] | | | | | Unknown | | + + + + + Care Team Providers + +------+ + | Care Switch Operators Supervisor Name | Role | Phone | [...] Farrar MD | | | | | [place], | | | | | | [place] [address] | | | | | | [phone] | | | +--------+ + + + [...] AM PDTPatient is scheduled f or 07/04/13 eleradha cuellar - Nati Sanches - 05/07/2013 11:52 AM ADRIANA CALLED PATIENT 7-13 TO Amadou BISHOP A NEW PATIENT CONSULT. THE [employer] PROJECT STATED THAT SHE IS IN THE HOSPITAL IN [facility]. THEY WILL CALL BACK TO SCHEDULE WHEN SHE IS DISCHARGED documented in this encounter Plan of Treatment Not on filedocumented as of this encounter Visit Diagnoses Not on filedocumented in this encounter"
--- OUTSIDE RECORDS SUMMARY | ~2020-07-30 | XMS | Encounter Summary ---
Demographics + + + | Address | [address] | | | [place] [address] | + + + | Home Phone [...] + | [employer] | ECON | [phone] | | | | | Unknown | | + + + + + Care Team Providers + +------+ + | Care Residential Care Officer Name | Role | Phone | [...] MD | obstructive | | | | [place], | | pulmonary disease) | | | | [place] [address] | | (HCC) (Primary Dx); | | | | [phone] | | Pulmonary | | | | | | hypertension ([facility]); | | | | | | Obstructive [...]
--- OUTSIDE RECORDS SUMMARY | ~2020-07-30 | XMS | Encounter Summary ---
Demographics + + + | Address | [address] | | | [place] [address] | + + + | Home Phone [...] + | [employer] | ECON | [phone] | | | | | Unknown | | + + + + + Care Team Providers + +------+ + | Care Creative Developer Name | Role | Phone | + +------+ + | Yuni Shrestha | PCP | | + +------+ + Encounter Details +--------+ + + + + | Date | Type | Department | Care Team | Description | +--------+ + + + + | 02/02/ | Hospital | [facility] | Fatou, | Primary pulmonary | | 2016 | Encounter | MED CTR PULMONARY | Vera Farrar MD | hypertension | | | | FUNCTION [address] | | | | | | [place], | | | | | | [place] [address] | | | | | | [phone] | | | +--------+ + + + [...] + + +---------+ + + | [place]-3 Fatty | Take by mouth. | | [...]
--- OUTSIDE RECORDS SUMMARY | ~2020-07-30 | XMS | Encounter Summary ---
Demographics + + + | Address | [address] | | | [place] [address] | + + + | Home Phone [...] + | [employer] | ECON | [phone] | | | | | Unknown | | + + + + + Care Team Providers + +------+ + | Care Mems Device Scientist Name | Role | Phone | [...] | | | CENTER [address] | [facility] | | | | | [address] [place] | [place] [address] | | | | | [address] | [phone] | | | | | [phone] | | | +--------+ + + + [...]
--- OUTSIDE RECORDS SUMMARY | ~2020-07-30 | XMS | Encounter Summary ---
Demographics + + + | Address | [address] | | | [place] [address] | + + + | Home Phone [...] + | [employer] | ECON | [phone] | | | | | Unknown | | + + + + + Care Team Providers + +------+ + | Care Statistical Clerk Advertising Name | Role | Phone | [...] + + | 05/08/ | [facility] | [facility] | Angel Garcia | Left EXTRACTION | | 2019 | | MED CTR OR INTRA OP | MD Vladimir [address] | CATARACT W/ LENS | | | | [address] | [place] | IMPLANT | | | | [place] | [place] [address] | | | | | [address] | [phone] | | | | | [phone] | | | +--------+---------+ + + + [...] You can't be awakened Fever New rash amprice last reviewed this educational content on 08/17/201619992147-7931 [facility]. [address] [place] [address], [place] [id number]. All righ ts reserved. 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), left eye Post-op Diagnosis: same Procedure: Cataract extraction by phacoemulsification with intraocular lens implant with tr trell loya, left eye (46128) Implant: Costa PCB00 23.5 D, SN [id number] Surgeon: Angel Garcia MD Anesthesia: Monitored Anesthesia Care Technique/Procedure Description: After the patient's eye prepped and draped in the usual [facility] ophthalmic manner, a lid speculum was placed [...] Needs | | | | | | [place] [facility]izer | | | al | | | [...] | | Site | | PRN, Starting [facility] 05/08/20 at 0944, | | AM PDT [...] glucose < 50, | | | Starting [facility] 05/08/20 at 0801, | | | Repeat [...] PRN, Nausea, Vomiting, | | | Starting [facility] 05/08/20 at 1009, | | | Recovery/Phase [...] | | | | | | Starting [facility] 05/08/20 at 0801, For | | | [...] | | | Site | | Starting [facility] 05/08/20 at 0953, | | AM PDT [...] | | | Site | | Starting [facility] 05/08/20 at 0930, | | AM PDT | | | | | Intra-op | | | | | | + +-------+ +--------+---+ + +---+---+ | | | +---+---+ + +-------+ +------+---+ + | triamcinolone acetonide | Given | 05/08/20 | 5 mg | | Surgical | | (KENALOG-10) 10 mg/mL injection | | 20 9:55 | | | Site | | PRN, Starting [facility] 05/08/20 at 0955, | | AM PDT [...] | | | | | | | [facility] 05/08/20 at 0801, For 3 doses, | [...]
--- OUTSIDE RECORDS SUMMARY | ~2020-07-30 | XMS | Encounter Summary ---
Demographics + + + | Address | [address] | | | [place] [address] | + + + | Home Phone [...] + | [employer] | ECON | [phone] | | | | | Unknown | | + + + + + Care Team Providers + +------+ + | Care Plastic Press Operator Name | Role | Phone [...] + + | 11/20/ | [facility] | [facility] | Jacky Calderon PA | Primary central | | 2014 | Visit | SLEEP DISORDER 401 | [address] | sleep apnea (Primary | | | | [address] [place] | [place] | Dx) | | | | [place] [address] | [address] | | | | | [phone] | | | +--------+---------+ + + + [...] was: 10/16/2013 date of polysomnography: 03/13/2013 at [facility] AHI: 64.2 O2%: n/a Machine type: Respironics BiPAP Auto with ResMed Quattro FX full face mask obtained from: [facility] pressure: 18/14 cm 19/5 cm Nights using BiPAP: 34/35 average usage (all nights): 6:27 6:15 average usage (nights used): 6:47 6:26 AHI: 11.0 62.5 Jessie comes in for BiPAP compliance. She was referred by Dr. Lainez to help with her pr oblems with leaks and her apnea not being completely controlled. We had [facility] in [place] change her pressure to the original prescription [...] study, sooner prn. Fifteen minutes were spent [id number], with the majority of time spent in counseling. Jacky Calderon PA-C cc: BRUCE Beal MD documented in this enco unter Plan of Treatment Not on filedocumented as of this encounter Visit Diagnoses + + | Diagnosis | + + | Primary central sleep apnea - Primary | + + documented in this encounter"
--- OUTSIDE RECORDS SUMMARY | ~2020-07-30 | XMS | Encounter Summary ---
Demographics + + + | Address | [address] | | | [place] [address] | + + + | Home Phone [...] + | [employer] | ECON | [phone] | | | | | Unknown | | + + + + + Care Team Providers + +------+ + | Care Health Teacher Name | Role | Phone | [...] | | | | [place] | [address] | | | | | [place] | [phone] | | | | | [address] | | | | | | [phone] | | | +--------+ + + + [...]
--- OUTSIDE RECORDS SUMMARY | ~2020-07-30 | XMS | Encounter Summary ---
Demographics + + + | Address | [address] | | | [place] [address] | + + + | Home Phone [...] + | [employer] | ECON | [phone] | | | | | Unknown | | + + + + + Care Team Providers + +------+ + | Care Commercial Real Estate Appraiser Name | Role | Phone | + +------+ + | Gela Trimble NP | PCP | | + +------+ + Encounter Details +--------+ + + + + | Date | Type | Department | Care Team | Description | +--------+ + + + + | 12/17/ | [facility] | [facility] | Fatou, | | | 2013 | Encounter | MED CTR GENERIC OP | Vera Farrar MD | | | | | CONV DEPT [address] | | | | | | [address] [place], | | | | | | [place] [address] | | | | | | [phone] | | | +--------+ + + + [...] | | | | | | | ([facility]) | | | | | [...] + + + +---------+ + + | [place] Starch POWD | by Does not apply [...] + + + +---------+ + + | [place]-3 Fatty | Take by mouth. | | [...] 08/06/20 | | | Therapy Supplies | [facility]'s office | | | 13 [...]
--- OUTSIDE RECORDS SUMMARY | ~2020-07-30 | XMS | Encounter Summary ---
Demographics + + + | Address | [address] | | | [place] [address] | + + + | Home Phone [...] + | [employer] | ECON | [phone] | | | | | Unknown | | + + + + + Care Team Providers + +------+ + | Care Bore Mill Operator For Plastic Name | Role | Phone | + [...] | | | | [place]ERS | [facility] [place] | | | | | [place] | [address] | | | | | [address] | [phone] | | | | | [phone] | | | +--------+ + + + [...]
--- OUTSIDE RECORDS SUMMARY | ~2020-07-30 | XMS | Encounter Summary ---
Demographics + + + | Address | [address] | | | [place] [address] | + + + | Home Phone [...] + | [employer] | ECON | [phone] | | | | | Unknown | | + + + + + Care Team Providers + +------+ + | Care Marine Oil Terminal Superintendent Name | Role | Phone | [...] Farrar MD | | | | | [place], | | | | | | [place] [address] | | | | | | [phone] | | | +--------+--------+ + + + [...]
--- OUTSIDE RECORDS SUMMARY | ~2020-07-30 | XMS | Encounter Summary ---
Demographics + + + | Address | [address] | | | [place] [address] | + + + | Home Phone [...] + | [employer] | ECON | [phone] | | | | | Unknown | | + + + + + Care Team Providers + +------+ + | Care Rolled Ham Lacer Name | Role | Phone | + [...] [address] [place] | [facility] [place] | | | | | [place] | [address] | | | | | [address] | [phone] | | | | | [phone] | | | +--------+ + + + [...]
--- OUTSIDE RECORDS SUMMARY | ~2020-07-30 | XMS | Encounter Summary ---
Demographics + + + | Address | [address] | | | [place] [address] | + + + | Home Phone [...] + | [employer] | ECON | [phone] | | | | | Unknown | | + + + + + Care Team Providers + +------+ + | Care Promos Executive Producer Name | Role | Phone | + +------+ + PCP | Unavailable | + +------+ + Encounter Details +--------+ + + + + | Date | Type | Department | Care Team | Description | +--------+ + + + + | 04/06/ | Hospital | [facility] | Conversion | | | 2011 | Encounter | [facility] | Transaction, | | | | | [facility] [address] | Provider Unknown | | | | | [facility], | | | | | | [place] [address] | (Fax) | | | | | [phone] | | | +--------+ + + + [...]
--- OUTSIDE RECORDS SUMMARY | ~2020-07-30 | XMS | Encounter Summary ---
Demographics + + + | Address | [address] | | | [place] [address] | + + + | Home Phone [...] Team Providers + +------+ + | Care Ring Sewer Name | Role | Phone | + [...] [address] | | | | | | [place], [place] | | | | | | [address] | | | +--------+ + + + [...]
--- OUTSIDE RECORDS SUMMARY | ~2020-07-30 | XMS | Encounter Summary ---
Demographics + + + | Address | [address] | | | [place] [address] | + + + | Home Phone [...] + | [employer] | ECON | [phone] | | | | | Unknown | | + + + + + Care Team Providers + +------+ + | Care Terra Cotta Mold Maker Name | Role | Phone | [...] | | | | ABD[place]ASHID BROTHERS | [facility], [place] | | | | | [place] | [address] | | | | | [address] | [phone] | | | | | [phone] | | | +--------+ + + + [...]
--- OUTSIDE RECORDS SUMMARY | ~2020-07-30 | XMS | Encounter Summary ---
Demographics + + + | Address | [address] | | | [place] [address] | + + + | Home Phone [...] + + + | Author | [facility] | + + + | Organization | [facility] | + + + | Address | Unknown | + + + | Phone | Unavailable | + + + Support + + +---------+ + | Name | Relationship | Address | Phone | + + +---------+ + | Lidia Thibodeaux | E[place] | Unknown | | + + +---------+ + Care Team Providers + +------+ + | Care School Bus Technician Name | Role | Phone | [...] | | | | | Floor | [place], [place] | | | | | | [place], [place] | [address] | | | | | | [address] | Phone: | | | | | | Phone: | [phone] | | | | | | [phone] | Fax: | | | | | | Fax: | [phone] | | | | | | [phone] | | +--------+--------+ + + + + Encounter Details +--------+ + + + + | Date | Type | Department | Care Team | Description | +--------+ + + + + | 03/27/ | Outside | Neurophysiology | Mustapha Vidal, | | | 2012 | Referral | EEG at [facility] [address] | MD [place] | | | | Order | [facility] | [facility] [address] | | | | | [place] [facility] | [address] | | | | | [place], [address] Floor | [place] [address] | | | | | [place], [place] | [phone] | | | | | [address] | | | | | | [phone] | | | +--------+ + + + [...] 1965 Medical | | | Record Number: [id number] Date of Test: 03/27/2013 Place of | | [facility]: EEG [facility] - [phone] | | | ROUTINE EEG - [facility] Reason for Exam: Evaluate for [...] | Clinical Events: No pushbutton events or environmental services technician notes of unusual | | | [...] Laws M.D. | | | Suggested CPT: 61128 - EEG Routine Awake & Asleep Suggested Dx: | | | 780.39-Convulsions | | + + + documented in this encounter Visit Diagnoses Not on filedocumented in this encounter"
--- OUTSIDE RECORDS SUMMARY | ~2020-07-30 | XMS | Encounter Summary ---
Demographics + + + | Address | [address] | | | [place] [address] | + + + | Home Phone [...] + | [employer] | ECON | [phone] | | | | | Unknown | | + + + + + Care Team Providers + +------+ + | Care Patent Solicitor Name | Role | Phone | [...] | Primary | [place], | [address] | | | | | pulmonary | Vera B, | [place], | | | | | hypertension | MD [address] | [place] | | | | | ([facility]) | [address] | [address] | | | | | Procedures | [place], | Phone: | | | | | [place] | [place] [address] | [phone] | | | | | Complete | | Fax: | | | | | | | [phone] | +--------+--------+ + + + + Reason [...] | Primary | [place], | [address] | | | | | pulmonary | Vera B, | [place], | | | | | hypertension | MD [address] | [place] | | | | | ([facility]) | [address] | [address] | | | | | Procedures | [place], | Phone: | | | | | [place] | [place] [address] | [phone] | | | | | Complete | | Fax: | | | | | | | [phone] | +--------+--------+ + + + + Encounter Details +--------+ + + + + | Date | Type | Department | Care Team | Description | +--------+ + + + + | 09/11/ | Hospital | [facility] | [place], | Primary pulmonary | | 2013 | Encounter | MED CTR ECHO [address] | Vera Farrar MD | hypertension | | | | [address] [place] | Taya Kirby, | | | | | [place] [address] | Technologist | | | | | [phone] | | | +--------+ + + + [...] | | | | | | | ([facility]) | | | | | [...] + + + +---------+ + + | [place] Starch POWD | by Does not apply [...] + + + +---------+ + + | [place]-3 Fatty | Take by mouth. | | [...] Performed At | + + + | [facility] ECHOCARD[facility] REPORT | [place] | | STUDY DATE: 09/11/2014 PATIENT NAME: Margarita Rowley : | [facility] | | 1965 PCP: Gela Trimble NP | [facility] | | CLINICAL HISTORY/DIAGNOSIS: Pulmonary hypertension [...] S. | | | Ananth Salguero MD [facility] 09/11/2014 10:45 | | | Rn Urgent Care: Hung Caro, RDCS, RVT, RDMS | | + + + + + | Procedure Note | + + | Roberto Salguero MD - 09/12/2014 9:12 AM [facility] | | CENTERECHOCARDIOGRAM REPORTSTUDY DATE: 09/11/2014PATIENT NAME: Margarita MooreB: | | 1965MRN: [id number]: Gela Mistry Nai, NPCLINICAL HISTORY/DIAGNOSIS: | | [...] PP mmHgLA volume: 30 mLLA index: 16 mL/p7Tmxspi Inflow DT: 272 | | msIVRT: 110 msValsalva: Not neededPWDTI S wave: 7.2 cm/sPWDTI E wave: 8.0 cm/sPWDTI | | A wave: 10.4 cm/sE/A Ratio: 0.769E/E Ratio: 10.63Signed by: Artie Salguero MD | | PhD FAC 09/11/2014 10:45 Rn Urgent Care: Hung Caro, RDCS, RVT, RDMS | |Tricuspid [...] | |Signed by: Artie Salguero MD PhD [facility] | | 09/11/2014 10:45 | | | | | |Rn Urgent Care: Hung Caro, JUANITOCS, RVT, RDMS | + + + + + + + | Performing | Address | City/State/Zipcode | Phone Number | | Organization | | | | + + + + + | [facility] | [address] | [place] | [phone] | | [facility] | | [address] | | | - IMAGING | | [...]
--- OUTSIDE RECORDS SUMMARY | ~2020-07-30 | XMS | Encounter Summary ---
Demographics + + + | Address | [address] | | | [place] [address] | + + + | Home Phone [...] + | [employer] | ECON | [phone] | | | | | Unknown | | + + + + + Care Team Providers + +------+ + | Care Mushroom Growing Supervisor Name | Role | Phone | [...] | | | | | | [place] [address] | | | | | | [phone] | | | +--------+ + + + [...] + + | EXTERNAL LAB: ANTWAN | Dotty | 10/07/2014 | | Results for this [...] +--------+ + + + | EXTERNAL LAB: COLT | Dotty | 10/07/2014 | | Results for this | | | e | 1:29 PM | | procedure are in the | | | | PST | | results section. | + +--------+ + + + | EXTERNAL LAB: ALFREDO | Routin | 10/07/2014 | | Results [...] +--------+ + + + | EXTERNAL LAB: B TYPE | Routin | 10/07/2014 | | [...] | + +---------+ + + External Lab: ALFREDO (10/07/2014 1:29 PM PST) + +-------+ + [...] | | [facility] | | [address], [facility] | | | - LABORATORY [...] ST. | [address] | [place] | | | [facility] | | [address], [facility] | | | - LABORATORY | | | | + + + + + documented in this encounter Visit Diagnoses Not on filedocumented in this encounter"
--- OUTSIDE RECORDS SUMMARY | ~2020-07-30 | XMS | Encounter Summary ---
Demographics + + + | Address | [address] | | | [place] [address] | + + + | Home Phone [...] + | [employer] | ECON | [phone] | | | | | Unknown | | + + + + + Care Team Providers + +------+ + | Care Cost Controller Name | Role | Phone | + [...] Farrar MD | | | | | [place], | | | | | | [place] [address] | | | | | | [phone] | | | +--------+ + + + [...] Amadou BISHOP A NEW PATIENT CONSULT. THE [employer] PROJECT STATED THAT SHE IS IN THE [facility]OSP[facility] IN [facility]. THEY WILL CALL BACK TO SCHEDULE WHEN SHE IS DISCHARGED documented in this encounter Plan of Treatment Not on filedocumented as of this encounter Visit Diagnoses Not on filedocumented in this encounter"
--- OUTSIDE RECORDS SUMMARY | ~2020-07-30 | XMS | Encounter Summary ---
Demographics + + + | Address | [address] | | | [place] [address] | + + + | Home Phone [...] + | [employer] | ECON | [phone] | | | | | Unknown | | + + + + + Care Team Providers + +------+ + | Care Correctional Facility Nurse Name | Role | Phone | [...] | | | | [place], | [place] [address] | Obstructive sleep | | | | [place] [address] | [phone] | apnea (adult) | | | | [phone] | | (pediatric) | +--------+ + + [...]
--- OUTSIDE RECORDS SUMMARY | ~2020-07-30 | XMS | Encounter Summary ---
Demographics + + + | Address | [address] | | | [place] [address] | + + + | Home Phone [...] + | [employer] | ECON | [phone] | | | | | Unknown | | + + + + + Care Team Providers + +------+ + | Care Portable Canteen Operator Name | Role | Phone | [...] | | | | | obstructive | BLOW TORCH OPERATOR [address] | [address] | | | | | pulmonary | [address] | [place], [place] | | | | | disease, | [place], | [address] | | | | | unspecified | [place] [address] | Phone: | | | | | ([facility]) | Phone: | [phone] | | | | | Procedures | [phone] | Fax: | | | | | F/U APPT | Fax: | [phone] | | | | | SCOUT | [phone] | | | | | | JERSON | | | | | | | 02/21/18 | | | +--------+--------+ + + + + Encounter Details +--------+---------+ + + + | Date | Type | Department | Care Team | Description | +--------+---------+ + + + | 02/21/ | Office | [facility] | Scout Arthur, | Pulmonary | | 2018 | Visit | PULMONARY [address] | hypertension, | | | | [place], | [place] [address] | unspecified ([facility]) | | | | [place] [address] | [phone] | (Primary Dx) | | | | [phone] | | | +--------+---------+ + + + [...] documented in this encounter Progress Notes Scout rAthur MD - 02/21/2018 11:00 AM PDT52 year old ex-smoker with pulmonary hypertension reasonably compensated on treatment I saw her a year ago. She had been diagnosed prior to that at [facility] in [place] by Dr. Lashae Rivera whose excellent notes [...] She is not taking spironolactone. See the [facility] ed section for medications. She had an [...] from [facility]. We spent 25 minutes [id number], at least half in counseling. Word processing [...]
--- OUTSIDE RECORDS SUMMARY | ~2020-07-30 | XMS | Encounter Summary ---
Demographics + + + | Address | [address] | | | [place] [address] | + + + | Home Phone [...] + | [employer] | ECON | [phone] | | | | | Unknown | | + + + + + Care Team Providers + +------+ + | Care Vending Enterprises Supervisor Name | Role | Phone | [...] + + | 12/26/ | Office | [facility] | Jacky Calderon PA | Primary central | | 2014 | Visit | SLEEP DISORDER [address] | [address] | sleep apnea (Primary | | | | [address] [place] | [place] | Dx) | | | | [place] [address] | [address] | | | | | [phone] | | | +--------+---------+ + + + [...] was: 11/20/2013 date of polysomnography: 03/13/2013 at [facility] AHI: 64.2 O2%: n/a Machine type: Respironics BiPAP Auto with ResMed Quattro FX full face mask obtained from: [facility] pressure: 19/5 cm Nights using BiPAP: [...] a prescription to [facility] in [place] for a change in her pressure s etting to 16/5 cm with backup rate of 8 and 5 L/min oxygen bled into the circuitry. She is to continue with BiPAP at these settings. I will follow up with her in 1 month, sooner prn. Thirty minutes were spent [id number], with the majority of time spent in [...]
--- OUTSIDE RECORDS SUMMARY | ~2020-07-30 | XMS | Encounter Summary ---
Demographics + + + | Address | [address] | | | [place] [address] | + + + | Home Phone [...] Organization | [facility] | | | and [place] | + + + | Address | Unknown | + + + | Phone | Unavailable | + + + Support + + + + + | Name | Relationship | Address | Phone | + + + + + | [employer] | ECON | [phone] | | | | | Unknown | | + + + + + Care Team Providers + +------+ + | Care Coremaker Apprentice Name | Role | Phone | + +------+ + | Yuni Shrestha | PCP | | + +------+ + Encounter Details +--------+ + + + + | Date | Type | Department | Care Team | Description | +--------+ + + + + | 11/07/ | Hospital | [facility] | Saharaenstein, | Primary pulmonary | | 2016 | Encounter | MED CTR PULMONARY | Vera Farrar MD | hypertension; | | | | FUNCTION [address] | | Hypoxemia | | | | [place], | | | | | | [place] [address] | | | | | | [phone] | | | +--------+ + + + [...] [facility]) | | | | | | + [...] + + + +---------+ + + | Gal[place] Starch POWD | by Does not apply [...] + + + +---------+ + + | [place]-3 Fatty | Take by mouth. | | [...] + + + | PFT PULMONARY | BAHVIN | 11/07/2015 | Primary pulmonary | | [...]
--- OUTSIDE RECORDS SUMMARY | ~2020-07-30 | XMS | Encounter Summary ---
Demographics + + + | Address | [address] | | | [place] [address] | + + + | Home Phone [...] + | [employer] | ECON | [phone] | | | | | Unknown | | + + + + + Care Team Providers + +------+ + | Care Laborer Car Barn Name | Role | Phone | + [...] Farrar MD | | | | | [place], | | | | | | [place] [address] | | | | | | [phone] | | | +--------+ + + + [...] Lainez received Margarita's labs drawn 10/07/14 [facility] [place]. Per Dr Lainez the labs overall look okay. Okay per Suma.Elec tronically signed by Tarah Nino RN at 12/17/2014 1:51 PM PSTdocumented in this encou nter Plan of Treatment Not on filedocumented as of this encounter Visit Diagnoses Not on filedocumented in this encounter"
--- OUTSIDE RECORDS SUMMARY | ~2020-07-30 | XMS | Encounter Summary ---
Demographics + + + | Address | [address] | | | [place] [address] | + + + | Home Phone | | + + + | Preferred Language | Unknown | + + + | Marital Status | Single | + + + | Denominational Affiliation | NRP | + + + | Race | White | + + + | Ethnic Group | Not or | + + + Author + + + | Author | [facility] | + + + | Organization | [facility] | + + + | Address | Unknown | + + + | Phone | Unavailable | + + + Support + + +---------+ + | Name | Relationship | Address | Phone | + + +---------+ + | Lidia Thibodeaux | ECON | Unknown | | + + +---------+ + Care Team Providers + +------+ + | Care Emr Implementation Specialist Name | Role | Phone | [...] | | [place], [place] | [address] | | | | | [address] | [phone] | | | | | [phone] | | | +--------+ + + + [...]
--- OUTSIDE RECORDS SUMMARY | ~2020-07-30 | XMS | Encounter Summary ---
Demographics + + + | Address | [address] | | | [place] [address] | + + + | Home Phone [...] + | [employer] | ECON | [phone] | | | | | Unknown | | + + + + + Care Team Providers + +------+ + | Care Sewer Line Photo Inspector Name | Role | Phone | [...] + + | 05/22/ | Office | [facility] | Jacky Calderon PA | Primary central | | 2015 | Visit | SLEEP DISORDER [address] | [address] | sleep apnea (Primary | | | | [address] [place] | [place] | Dx) | | | | [place] [address] | [address] | | | | | [phone] | | | +--------+---------+ + + + [...] 05/21/2014 date of polysomnography: 03/13/[address] [facility] AHI: 64.2 O2%: n/a Machine type: Respironics BiPAP Auto with ResMed Quattro FX full face mask obtained from: [facility] in [place] pressure: 16/5 cm with backup rate of [...] year, sooner prn. Fifteen minutes were spent [id number], with the majority of time spent in counseling. Jacky Calderon PA-C cc: BRUCE Beal MD documented in this enco unter Plan of Treatment Not on filedocumented as of this encounter Visit Diagnoses + + | Diagnosis | + + | Primary central sleep apnea - Primary | + + documented in this encounter"
--- OUTSIDE RECORDS SUMMARY | ~2020-07-30 | XMS | Encounter Summary ---
Demographics + + + | Address | [address] | | | [place] [address] | + + + | Home Phone [...] + | [employer] | ECON | [phone] | | | | | Unknown | | + + + + + Care Team Providers + +------+ + | Care Machine Stemmer Name | Role | Phone | + +------+ + | Gela Trimble NP | PCP | | + +------+ + Encounter Details +--------+ + + + + | Date | Type | Department | Care Team | Description | +--------+ + + + + | 07/30/ | Hospital | [facility] | Saharaenstein, | | | 2012 | Encounter | MED CTR SLEEP | Vera Farrar MD | | | | | [address] | | | | | | [place] | | | | | | [address] | | | | | | [phone] | | | +--------+ + + + [...] | + + + +---------+--------+ + | [place]-3 Fatty | Take by mouth. | | [...]
--- OUTSIDE RECORDS SUMMARY | ~2020-07-30 | XMS | Encounter Summary ---
Demographics + + + | Address | [address] | | | [place] [address] | + + + | Home Phone [...] Team Providers + +------+ + | Care Dietary Tech Name | Role | Phone | + +------+ + | Yuni Shrestha | PCP | | + +------+ + Encounter Details +--------+ + + + + | Date | Type | Department | Care Team | Description | +--------+ + + + + | 05/17/ | Electrical Journeyman | Pulmonary & | Oneal Morejon MD | | | 2012 | | Critical Care | [address] | | | | | Medicine at | [facility], | | | | | [facility] | [place] [address] | | | | | [address] | [phone] | | | | | [address] [facility] | | | | | | [place], [address] Floor | | | | | | [place], [place] | | | | | | [address] | | | | | | [phone] | | | +--------+ + + + [...]
--- OUTSIDE RECORDS SUMMARY | ~2020-07-30 | XMS | Encounter Summary ---
Demographics + + + | Address | [address] | | | [place] [address] | + + + | Home Phone [...] + | [employer] | ECON | [phone] | | | | | Unknown | | + + + + + Care Team Providers + +------+ + | Care Battery Container Finishing Hand Name | Role | Phone | [...] | hypertension (HCC); | | | | [place], | | High risk medication | | | | [place] [address] | | use | | | | [phone] | | | +--------+ + + + [...]
--- OUTSIDE RECORDS SUMMARY | ~2020-07-30 | XMS | Encounter Summary ---
Demographics + + + | Address | [address] | | | [place] [address] | + + + | Home Phone [...] + | [employer] | ECON | [phone] | | | | | Unknown | | + + + + + Care Team Providers + +------+ + | Care Repeater Operator Name | Role | Phone | [...] Farrar MD | | | | | [place], | | | | | | [place] [address] | | | | | | [phone] | | | +--------+ + + + [...] labs drawn 10/07/14 at [facility] [place]. Per Dr Lainez the labs overall look okay. Okay per Suma.Elec tronically signed by Tarah Nino RN at 12/17/2014 1:51 PM PSTdocumented in this encou nter Plan of Treatment Not on filedocumented as of this encounter Visit Diagnoses Not on filedocumented in this encounter"
--- OUTSIDE RECORDS SUMMARY | ~2020-07-30 | XMS | Encounter Summary ---
Demographics + + + | Address | [address] | | | [place] [address] | + + + | Home Phone [...] + | [employer] | ECON | [phone] | | | | | Unknown | | + + + + + Care Team Providers + +------+ + | Care Therapist'S Assistant Name | Role | Phone | [...] + + | 10/16/ | Office | [facility] | Jacky Calderon PA | Primary central | | 2012 | Visit | SLEEP DISORDER [address] | [address] | sleep apnea (Primary | | | | [address] [place] | [place] | Dx) | | | | [place] [address] | [address] | | | | | [phone] | | | +--------+---------+ + + + [...] Quattro FX full face mask obtained from: [facility] pressure: 18/14 cm Nights using [...] prescription sent to [facility] in [place] by Dr. Lainez had the correct pressures. [facility] in [facility] will make the adjustment to Jessie's [...] I talked with [facility] in [facility] having her pressures corrected to IPAP 19 cm, EPAP 5 cm and a backup of 8 bpm with 2 L/mi n O2 bled into the system. I will follow up again in 1 month, sooner prn. Fifteen minutes were spent xqxr-gy-[id number], wi th the majority of time spent in counseling. Jacky Calderon PA-C cc: BRUCE Beal MD documented in this enco unter Plan of Treatment Not on filedocumented as of this encounter Visit Diagnoses + + | Diagnosis | + + | Primary central sleep apnea - Primary | + + documented in this encounter"
--- OUTSIDE RECORDS SUMMARY | ~2020-07-30 | XMS | Encounter Summary ---
Demographics + + + | Address | [address] | | | [place] [address] | + + + | Home Phone [...] + | [employer] | ECON | [phone] | | | | | Unknown | | + + + + + Care Team Providers + +------+ + | Care Discharge Rn Name | Role | Phone | [...] MD | | | | | [place], | | | | | | [place] [address] | | | | | | [phone] | | | +--------+ + + + [...] She is also being sent to the [facility] center to work on mask fitting with her care providers. Cc: Lashae Rivera MD, [employer] documented in this encounter Plan of Treatment Not on filedocumented as of this encounter Visit Diagnoses Not on filedocumented in this encounter"
--- OUTSIDE RECORDS SUMMARY | ~2020-07-30 | XMS | Encounter Summary ---
Demographics + + + | Address | [address] | | | [place] [address] | + + + | Home Phone [...] + | [employer] | ECON | [phone] | | | | | Unknown | | + + + + + Care Team Providers + +------+ + | Care Operator Lights Name | Role | Phone | + [...] RN | obstructive | | | | [place], | | pulmonary disease) | | | | [place] [address] | | ([facility]) | | | | [phone] | | | +--------+ + + + [...]
--- OUTSIDE RECORDS SUMMARY | ~2020-07-30 | XMS | Encounter Summary ---
Demographics + + + | Address | [address] | | | [place] [address] | + + + | Home Phone [...] Organization | [facility] | | | and [place] | + + + | Address | Unknown | + + + | Phone | Unavailable | + + + Support + + + + + | Name | Relationship | Address | Phone | + + + + + | [employer] | ECON | [phone] | | | | | Unknown | | + + + + + Care Team Providers + +------+ + | Care Glass Forming Engineer Name | Role | Phone | [...] MD | increase) | | | | [place], | | | | | | [place] [address] | | | | | | [phone] | | | +--------+ + + + [...] this is based on sleep study results. [place] see PSG results as documented. Electronical ly signed by Vera Lainez MD at 12/27/2013 12:20 PM PSTTelephone Encounter - Tarah Dalton RN - 12/27/2013 9:43 AM PSTStephanie [facility] to increase [place]'s nocturnal O2 to 5 l/m recommended by Dr Ruelas. documented in this encounter Plan of Treatment Not on filedocumented as of this encounter Visit Diagnoses Not on filedocumented in this encounter"
--- OUTSIDE RECORDS SUMMARY | ~2020-07-30 | XMS | Encounter Summary ---
Demographics + + + | Address | [address] | | | [place] [address] | + + + | Home Phone [...] + | [employer] | ECON | [phone] | | | | | Unknown | | + + + + + Care Team Providers + +------+ + | Care Heel Sander Name | Role | Phone | + [...] ABDIRASHID BROTHERS | [facility] [place] | | | | | [place] | [address] | | | | | [address] | [phone] | | | | | [phone] | | | +--------+ + + + [...]
--- OUTSIDE RECORDS SUMMARY | ~2020-07-30 | XMS | Encounter Summary ---
Demographics + + + | Address | [address] | | | [place] [address] | + + + | Home Phone [...] + | [employer] | ECON | [phone] | | | | | Unknown | | + + + + + Care Team Providers + +------+ + | Care Data Services Developer Name | Role | Phone | + +------+ + | Gela Trimble NP | PCP | | + +------+ + Encounter Details +--------+ + + + + | Date | Type | Department | Care Team | Description | +--------+ + + + + | 09/17/ | Hospital | [facility] | Off[place], | Primary pulmonary | | 2012 | Encounter | MED CTR LABORATORY | Vera Farrar MD | hypertension (HCC) | | | | [address] | | | | | | [place] | | | | | | [address] | | | | | | [phone] | | | +--------+ + + + [...] + + + +---------+ + + | [place] Starch POWD | by Does not apply [...] + | [facility] | [address] | [place] | [phone] | | [facility] | | [address] | | | - LABORATORY | | | | + + + + + | [facility] | [address] | [place] | | | [facility] | | [address], [facility] | | | - LABORATORY | | | | + + + + + documented in this encounter Visit Diagnoses + + | Diagnosis | + + | Primary pulmonary hypertension (HCC) Primary pulmonary hypertension | + + documented in this encounter"
--- OUTSIDE RECORDS SUMMARY | ~2020-07-30 | XMS | Encounter Summary ---
Demographics + + + | Address | [address] | | | [place] [address] | + + + | Home Phone [...] + | [employer] | ECON | [phone] | | | | | Unknown | | + + + + + Care Team Providers + +------+ + | Care Construction Equipment Mechanic Name | Role | Phone | + +------+ + | Shanice Huang MD | PCP | | + +------+ + Encounter Details +--------+ + + + + | Date | Type | Department | Care Team | Description | +--------+ + + + + | 07/23/ | Hospital | [facility] | Helen Astudillo | Primary pulmonary | | 2020 | Encounter | MED CTR PULMONARY | MD Vikash [address] | hypertension (HCC); | | | | FUN[address] [place] | Chronic obstructive | | | | [place], | [place] [address] | pulmonary disease, | | | | [place] [address] | [phone] | unspecified COPD | | | | [phone] | | type (HCC) | +--------+ + + + + [...] + +---------+ + + | cetirizine | | | 0 | 07/09/20 | | | (ZYRTEC) 10 mg | | | | 20 | | | tablet | | | | | | + + + +---------+ + + | cholecalciferol | Take 2,000 Units by | | 0 | | | | (VITAMIN D-3) 2000 | mouth Daily. | | | | | | UNITS TABS | | | | | | + + + +---------+ + + | divalproex | | | 0 | 07/09/20 | | | (DEPAKOTE ER) 500 mg | | | | 20 | | | 24 hr tablet | | | | | | + + + +---------+ + + | divalproex | Take 500 mg by mouth | | 0 | | | | (DEPAKOTE) 500 mg EC | 2 times daily. | | | | | | tablet | | | | | | + + + +---------+ + + | doxycycline | | | 0 | 07/14/20 | | | (MONODOX) 100 mg | | | | 20 | | | capsule | | | [...] + + +---------+ + + | NYSTATIN [id number] | as needed | | 0 | 04/30/20 | | | UNIT/GM powder | | [...] documented as of this encounter Progress Notes Margret Ireland RRT - 07/23/2020 10:15 AM PDTPatient unable to perform 6 minute walk test, attempted to walk approximately 100 feet while on 2 liters pulsating portable oxygen unit, p atient complained of dizziness and feeling faint, declined to try additional walk. Forehead probe used during one and a half minute walk while on 2 liters. Resting SpO2 96%, pulse 78. Walking approximately 100 feet with SpO2 decreased to 91% on 2 liters with pulse 106. Exercise stopped as stated above. Electronically signed by: Margret Ireland RRT 07/23/2020 11:25 AM PDT documented in this en counter Procedure Notes Helen Astudillo MD - 07/23/2020 10:15 AM PDTAssociated Order(s): PFT PULMONARY FUNCTION TESTING ORDERSProcedure(s): PFT PULMONARY FUNCTION TESTING ORDERSPre-Procedure Diagnose(s): Primary pulmonary hypertension (HCC); Chronic obstructive pulmonary disease, unspecified [place] PD type (HCC) PULMONARY FUNCTION TESTING SPIROMETRY: The FVC was 2.43 L or 95% of predicted. The FEV1 was 1.80 L or 85% of predicted . FEV1/FVC ratio was 74%. LUNG VOLUMES: The total lung capacity was 3.44 L or 80% of predicted. The residual volume w as 1.01 L or 61% of predicted. RV/TLC ratio was 29% of predicted. DIFFUSION CAPACITY: The diffusion capacity was 7.9 mL/mmHg per minute or 36% of predicted. IMPRESSION: Spirometry is consistent with normal physiology. Lung volume testing is consist ent with normal physiology. Diffusion capacity is severely reduced and is not corrected for measured hemoglobin. Compared to prior pulmonary function test done 07/04/2013, the following changes have occurred: FVC improved by 19%, FEV1 improved [...] further due to dizziness and feeling faint. Test performed: 07/23/2020 Electronically signed by: Helen Astudillo MD, MD 07/23/2020 3:05 PM PDT [facility] signed by Helen Astudillo MD at 0 07/23/2020 3:12 PM PDTdocumented in this encounter Plan of [...] + + documented in this encounter Results Pulmonary function test full [...] MD, | | | 07/23/2020 3:05 PM PDTWS[facility] | | | | | |EXERCISE [...] 3:05 PM | | |PDT | | |[facility] | | + + + documented in this encounter Visit Diagnoses + + | Diagnosis | + + | Primary pulmonary hypertension (HCC) Primary pulmonary hypertension | + + | Chronic obstructive pulmonary disease, unspecified COPD type (HCC) | + + documented in this encounter"
--- OUTSIDE RECORDS SUMMARY | ~2020-07-30 | XMS | Encounter Summary ---
Demographics + + + | Address | [address] | | | [place] [address] | + + + | Home Phone [...] + | [employer] | ECON | [phone] | | | | | Unknown | | + + + + + Care Team Providers + +------+ + | Care Software Engineering Manager Name | Role | Phone | [...] | | pulmonary | [address] | [place], [place] | | | | | disease, | [place], | [address] | | | | | unspecified | [place] | Phone: | | | | | (HCC) | [address] | [phone] | | | | | Procedures | Phone: | Fax: | | | | | OFFICE VISIT | [phone] | [phone] | | | | | EXTENDED | Fax: | | | | | | | [phone] | | +--------+--------+ + + + + Encounter Details +--------+---------+ + + + | Date | Type | Department | Care Team | Description | +--------+---------+ + + + | 01/31/ | Office | [facility] | Scout Arthur, | Primary pulmonary | | 2019 | Visit | PULMONARY [address] | hypertension (HCC) | | | | [place], | [place] [address] | (Primary Dx); | | | | [place] [address] | [phone] | Hypoxia | | | | [phone] | | | +--------+---------+ + + + [...] Scout Arthur MD - 01/31/2019 2:00 PM [id number] former smoker with primar y pulmonary hypertension [...] so we are asking [facility] to give her a new BiPAP machine [...] is a note from Dr. Huang in [place] that CMP, CBC, and ESR w ere [...] BiPAP equipme nt. We spent 20 minutes, [id number]-[id number], at least half in counseling. Word processing [...]
--- OUTSIDE RECORDS SUMMARY | ~2020-07-30 | XMS | Encounter Summary ---
Demographics + + + | Address | [address] | | | [place] [address] | + + + | Home Phone [...] | Organization | [facility] | | | and [place] | + + + | Address | Unknown | + + + | Phone | Unavailable | + + + Support + + + + + | Name | Relationship | Address | Phone | + + + + + | [employer] | ECON | [phone] | | | | | Unknown | | + + + + + Care Team Providers + +------+ + | Care Bung Sewer Name | Role | Phone | [...] Farrar MD | | | | | [place], | | | | | | [place] [address] | | | | | | [phone] | | | +--------+ + + + [...] orders w ere confirmed with Suma at [facility] (her boss) on 12/27/13. She also had questions regar ding the oxygen equipment. I directed her to call [facility] [place] and have them re view Jacky [place]-[facility]'s orders from 12/26/13 visit and also to clarify the equipment function w ith them. She said she will do that now. Electronically signed by Jia Noriega RN at 0 01/07/2014 3:15 PM PDTdocumented in this encounter Plan of Treatment Not on filedocumented as of this encounter Visit Diagnoses Not on filedocumented in this encounter"
--- OUTSIDE RECORDS SUMMARY | ~2020-07-30 | XMS | Encounter Summary ---
Demographics + + + | Address | [address] | | | [place] [address] | + + + | Home Phone [...] + | [employer] | ECON | [phone] | | | | | Unknown | | + + + + + Care Team Providers + +------+ + | Care Coal Dumping Equipment Operator Name | Role | Phone | + +------+ + | Yuni Shrestha | PCP | | + +------+ + Encounter Details +--------+ + + + + | Date | Type | Department | Care Team | Description | +--------+ + + + + | 02/01/ | Hospital | [facility] | Scout Arthur, | Lung nodule | | 2017 | Encounter | MED CTR XRAY [address] | | | | | [place] | [place] [address] | | | | | [place] [address] | [phone] | | | | | [phone] | | | +--------+ + + + [...] + + + +---------+ + + | Agency [facility] | by Does not apply [...] [address] | [place] | [phone] | | [facility] | | [address] | | | - IMAGING | | | | + + + + + documented in this encounter Visit Diagnoses + + | Diagnosis | + + | Lung nodule Solitary pulmonary nodule | + + documented in this encounter"
--- OUTSIDE RECORDS SUMMARY | ~2020-07-30 | XMS | Encounter Summary ---
Demographics + + + | Address | [address] | | | [place] [address] | + + + | Home Phone [...] | [facility] | | | and [place] | + [...] + | [employer] | ECON | [phone] | | | | | Unknown | | + + + + + Care Team Providers + +------+ + | Care Vibration Technician Name | Role | Phone | [...] Farrar MD | | | | | [place], | | | | | | [place] [address] | | | | | | [phone] | | | +--------+ + + + [...] RN - 04/23/2015 11:02 AM [facility] care facility[facility] was notified that [...]
--- OUTSIDE RECORDS SUMMARY | ~2020-07-30 | XMS | Encounter Summary ---
Demographics + + + | Address | [address] | | | [place] [address] | + + + | Home Phone [...] + | [employer] | ECON | [phone] | | | | | Unknown | | + + + + + Care Team Providers + +------+ + | Care Electrical Discharge Machine Operator Name | Role | Phone [...] | | [facility] LAB[facility] | Zari, Value Advisor | use | | | | [address] | | | | | | [place] | | | | | | [address] | | | | | | [phone] | | | +--------+ + + + [...] | 1.02 | 0.60 - 1.30 | [facility] | | | | | mg/dL | [facility] | | | | | | MEDICAL | | | | | | CENTER - | | | | | | LABORATORY | | + + + + + + | eGFR, | 57 (L)Comment: | >=60 | [facility] | | | non- | GLOMERULAR FILTRATION | mL/min/1.73m2 | [facility] | | | Dutch | RATE,ESTIMATED | | MEDICAL | | | | mL/min/1.13q6Secu than | | CENTER - | | [...] | 9.6 | 8.3 - 10.5 | [facility] | | | | | mg/dL | [facility] | | | | | [...] + | [address] | [address] | [place] | [phone] | | [facility] | | [address] | | | - LABORATORY | | [address] | [place] | [phone] | | [facility] | | [address] | | | - LABORATORY | | | | + + + + + documented in this encounter Visit Diagnoses + + | Diagnosis | + + | High risk medication use Encounter for long-term (current) use of other medications | + + documented in this encounter"
--- OUTSIDE RECORDS SUMMARY | ~2020-07-30 | XMS | Encounter Summary ---
Demographics + + + | Address | [address] | | | [place] [address] | + + + | Home Phone [...] + | [employer] | ECON | [phone] | | | | | Unknown | | + + + + + Care Team Providers + +------+ + | Care Beverage Steward Name | Role | Phone | + [...] MD | oximetry) | | | | [place], | | | | | | [place] [address] | | | | | | [phone] | | | +--------+ + + + [...] Telephone Encounter - Tarah Nino, MARANDA - 08/21/2015 1:34 PM PDTCalled Margarita's caregi gricelda Marry and advised that Dr Lainez is recommending that Margarita increase her nocturna l O2 to 6 l/m through the BIPAP and have a repeat nocturnal pulse oximetry as her O2 sat was below 88% for 315.4 minutes. Okay per Marry. Orders sent to [facility] y signed by Tarah Nino RN [...]
--- OUTSIDE RECORDS SUMMARY | ~2020-07-30 | XMS | Encounter Summary ---
Demographics + + + | Address | [address] | | | [place] [address] | + + + | Home Phone [...] + | [employer] | ECON | [phone] | | | | | Unknown | | + + + + + Care Team Providers + +------+ + | Care Certified Medical Coding Specialist Name | Role | Phone | [...] | | | | | | [place] [address] | | | | | | [phone] | | | +--------+ + + + [...]
--- OUTSIDE RECORDS SUMMARY | ~2020-07-30 | XMS | Encounter Summary ---
Demographics + + + | Address | [address] | | | [place] [address] | + + + | Home Phone [...] + | [employer] | ECON | [phone] | | | | | Unknown | | + + + + + Care Team Providers + +------+ + | Care Barrel Loader And Cleaner Name | Role | Phone | [...] MD | oximetry) | | | | [place], | | | | | | [place] [address] | | | | | | [phone] | | | +--------+ + + + [...] per Marry. Orders sent to [facility] y signed by Tarah Nino RN [...]
--- OUTSIDE RECORDS SUMMARY | ~2020-07-30 | XMS | Encounter Summary ---
Demographics + + + | Address | [address] | | | [place] [address] | + + + | Home Phone [...] + | [employer] | ECON | [phone] | | | | | Unknown | | + + + + + Care Team Providers + +------+ + | Care Assistant Store Leader Name | Role | Phone | + +------+ + PCP | Unavailable | + +------+ + Encounter Details +--------+ + + + + | Date | Type | Department | Care Team | Description | +--------+ + + + + | 01/10/ | Hospital | [facility] | [facility] | | | 2008 | Encounter | HOSPITAL MED SURG | [address] | | | | [address] [place] | [facility], | | | | | [place] | [place] [address] | | | | | [address] | [phone] | | | | | [phone] | | | +--------+ + + + [...]
--- OUTSIDE RECORDS SUMMARY | ~2020-07-30 | XMS | Encounter Summary ---
Demographics + + + | Address | [address] | | | [place] [address] | + + + | Home Phone [...] + | [employer] | ECON | [phone] | | | | | Unknown | | + + + + + Care Team Providers + +------+ + | Care Seamer Panty Hose Name | Role | Phone | + [...] | | | | | | [place] [address] | | | | | | [phone] | | | +--------+ + + + [...]
--- OUTSIDE RECORDS SUMMARY | ~2020-07-30 | XMS | Encounter Summary ---
Demographics + + + | Address | [address] | | | [place] [address] | + + + | Home Phone [...] | Organization | [facility] [place] | | | and [place] | + + + | Address | Unknown | + + + | Phone | Unavailable | + + + Support + + + + + | Name | Relationship | Address | Phone | + + + + + | [employer] | ECON | [phone] | | | | | Unknown | | + + + + + Care Team Providers + +------+ + | Care Pricing Manager Name | Role | Phone | [...] S | Dx) | | | | [place], | [place] [address] | | | | | [place] [address] | [phone] | | | | | [phone] | | | +--------+ + + + [...] | [address] | [place] | [phone] | | [facility] | | [address] | | | - IMAGING | | | | + + + + + documented in this encounter Visit Diagnoses + + | Diagnosis | + + | Lung nodule - Primary Solitary pulmonary nodule | + + documented in this encounter"
--- OUTSIDE RECORDS SUMMARY | ~2020-07-30 | XMS | Encounter Summary ---
Demographics + + + | Address | [address] | | | [place] [address] | + + + | Home Phone [...] | Organization | [facility] [place] | | | and [place] | + + + | Address | Unknown | + + + | Phone | Unavailable | + + + Support + + + + + | Name | Relationship | Address | Phone | + + + + + | [employer] | ECON | [id number] | | | | | Unknown | | + + + + + Care Team Providers + +------+ + | Care Digital Field Service Technician Name | Role | Phone [...] + | 04/30/ | Office | [facility] | Jacky Calderon PA | GLORIA treated with | | 2019 | Visit | SLEEP DISORDER [address] | [address] | BiPAP (Primary Dx) | | | | [address] [place] | [place] | | | | | [place] [address] | [address] | | | | | [phone] | | | +--------+---------+ + + + [...] visit: 04/16/2019 date of polysomnography: 03/13/2013 at [facility] AHI: 64.2 O2%: n/a Machine type: Respironics DreamStation Auto BiPAP Mask type: ResMed Quattro FX full face mask DME: [facility] [place] pressure: 16/5 cm with backup rate of [...] Assessment: Problem #1: PRIMARY CENTRAL SLEEP APNEA ([id number]) She has severe apnea. This is controlled [...] year, sooner prn. Fifteen minutes were spent [id number], with the majority of time spent in counseling. Jacky Calderon PA-C Cc: Shanice Huang MD documented in this enco unter Plan of Treatment Not on filedocumented as of this encounter Visit Diagnoses + + | Diagnosis | + + | GLORIA treated with BiPAP - Primary | + + documented in this encounter"
--- OUTSIDE RECORDS SUMMARY | ~2020-07-30 | XMS | Encounter Summary ---
Demographics + + + | Address | [address] | | | [place] [address] | + + + | Home Phone [...] Providers + +------+ + | Care Assistant Golf Professional Name | Role | Phone | + +------+ + | Gela Trimble SOLAR SALES ADVISOR | PCP | | + +------+ + [...] | pulmonary | Nadja Solomon | [place], | | | | | heart | [place], [place] | [place] | | | | | diseases | [address] | [address] | | | | | Procedures | Phone: | Phone: | | | | | CONSULT TO | [phone] | [phone] | | | | | PULMONARY | Fax: | Fax: | | | | | | [phone] | [phone] | +--------+--------+ + + + + Diagnostic [...] | | | | | | | [place], [place] | | | | | | | [address] | | | | | | | Phone: | | | | | | | [phone] | | | | | | | Fax: | | | | | | | [phone] | | +--------+--------+ + + + + [...] | | | | Judi Hein, | [facility] [address] | | | | | TRANSTHORACI | MD [address] | | | | | C | [address] Serrano | [address] | | | | | [address] | [address] | Brown | | | | | AM, ADULT | [place], [place] | [facility] | | | | | | [address] | floor | | | | | | | [place], [place] | | | | | | | [address] | | | | | | | Phone: | | | | | | | [phone] | +--------+--------+ + + + + Reason [...] | | | | | | | [address] [facility] | | | | | | | Zach Saez | | | | | | | Mushtaq Mailcode: | | | | | | | 14B [facility] | | | | | | | Hospital | | | | | | | [place], [place] | | | | | | | [address] | | | | | | | Phone: | | | | | | | [phone] | | | | | | | Fax: | | | | | | | [phone] | +--------+--------+ + + + + Encounter Details +--------+ + + + + | Date | Type | Department | Care Team | Description | +--------+ + + + + | 05/02/ | Hospital | [facility] 14B MEDICINE | Damián Cervantes MD | | | 2013 - | Encounter | [address] | [address] | | | | | Nadja Solomon Mailcode: | Nadja Solomon [place], | | | 05/12/ | | [address] [facility] | [place] [address] | | | 2012 | | [place], [place] | [phone] | | | | | [address] | | | | | | [phone] | Agus Hu MD | | | | | | [address] | | | | | | Nadja Solomon [place], | | | | | | [place] [address] | | | | | | [phone] | | | | | | | [...] interventricular septum. RVSP 75 +. Transferred to [facility] from OSH ED on after [...] to 100/80s. Initial vitals on arrival at [facility] were T 36.6 BP 110/69 [...] ensure proper diuresis -pt will f/u with sales and service associate- Avila Langley in [place] #. Pulmonary hypertension, idiopathic- diagnosis confirmed via [...] Apply 1 Patch to skin once daily. [place]-3 Fatty Acids-Vitamin E (FISH OIL) 1,000 mg [...] physician to follow, Dr. Ansari from [facility] -spoke to PCP and spoke over hospital course and f/u plans -will have pulm f.u here at [facility] as no pulm htn specialist in [place], to be arranged -asked PCP, who had been managing seizure d/o to arrange for neurology f/u in [place] (a greed) -pt will f/u with sales and service associate- Avila Langley in [place] Outstanding labs/studies: none Cristine Freeman MD Internal Medicine Resident Pager [phone] Jessica Lopez MD Anesthesiology, PGY-1 Pager [phone] documented in t his encounter Medications at [...] + + + +---------+ + + | [place]-3 Fatty | Take 1 Cap by mouth [...] 4. Dispo - d/c to SNF near [place] for rehab. Taty Bucio MD, MPH shop steward [facility] DEPARTMENT: [id number]- [facility] P[facility] Place of Service:- Inpatient Date of Service: 05/12/2013 CSN: [id number] Suggested Modifiers:GC- Resident present for procedure Suggested CPT: 48009- Discharge < 30 min Too Lechuga MD [...] rehab -plan for transport tomorrow 11am to [facility] -spoke with Dr. Ansari (family [facility]), physician to take care of p t at SNF -outpt meds: lasix 80mg PO BID, 40mEq KCl tab daily Agus Hu MD saw and evaluated this patient and aggress with my assessment and plan as documented above. Jessica Lopez MD Anesthesiology, PGY-1 Pager [phone] leAgus madden MD - 0 05/11/2013 4:10 PM [facility] 4 GENERAL MEDICINE ATTENDING PROGRESS NOTE ADMIT DATE: 05/02/2013 8:40 PM TODAY'S DATE: 05/11/2013 (HOSPITAL DAY 9) I personally interviewed the patient, performed the beverly elements of the physical examinatio n, reviewed new lab data in EPIC, looked at any new radiology images and have developed an u pdated assessment and plan together with the 4 residents, Dr. Lopez/Lydia. Please see [facility] housestaff notes for full details. History: RHC [...] set up for tomorrow. AGUS HU MD Medical Lab Tech Instructoriap displays analyst Division of Hospital Medicine Department of Internal Medicine [facility] DEPARTMENT: Hosp- [id number] Place of Service: - Date of Service: 05/11/2013 CSN: [id number] Modifiers:GC Resident Involved: Yes Suggested CPT: 45734 Subsequent Visit Exp Prob Foc/Mod Complexity 25 [...] the 4 residents, Dr. Lopez/Lydia. Please see [facility] housestaff notes for full details. I agree with their note with the following additions/ex ceptions. Assessment and Plans Patient Active Hospital Problem List: 1) *Right heart failure due to pulmonary hypertension: Still unclear cause of PulmHTN. Cou ld still be related to GLORIA, will review results of initial sleep study showing severe AHI [facility] pulmonology. RHC today. IF wedge pressure is [...] disorder 11) Developmental delay AGUS HU MD Medical Lab Tech Instructoriap displays analyst Division of Hospital Medicine Department of Internal Medicine [facility] DEPARTMENT: Hosp- [id number] Place of Service: - [id number] Date of Service: 05/10/2013 CSN: [id number] Modifiers:GC Resident Involved: Yes Suggested CPT: 65179 Subsequent Visit Detailed/High complexity 35 min Too [...] above. Jessica Lopez MD Anesthesiology, PGY-1 Pager [phone] gus Hu MD - 0 05/09/2013 3:08 PM [facility] 4 GENERAL MEDICINE ATTENDING PROGRESS NOTE [...] disorder 11) Developmental delay AGUS HU MD Medical Lab Tech Instructoriap displays analyst Division of Hospital Medicine Department of Internal Medicine [facility] DEPARTMENT: Hosp- [id number] Place of Service: - Date of Service: 05/09/2013 CSN: [id number] Modifiers:GC Resident Involved: Yes Suggested CPT: 44567 Subsequent Visit Exp Prob Foc/Mod Complexity 25 [...] pending better optimization of fluid status, hopeful [facility] Code Status:} Full Code -:Interval Hx:- [...] and plan. Cristine Freeman Internal Medicine Resident [id number] [facility] Hospital[facility] madden MD - 05/08/2013 2:00 PM [facility] 4 GENERAL MEDICINE ATTENDING PROGRESS NOTE ADMIT DATE: 05/02/2013 8:40 PM TODAY'S DATE: 05/08/2013 (HOSPITAL DAY 6) I personally interviewed the patient, performed the beverly elements of the physical examinatio n, reviewed new lab data in EPIC, looked at any new radiology images and have developed an u pdated assessment and plan together with the [facility] residents, Dr. Lopez/Lydia. Please see e [...] disorder 11) Developmental delay AGUS HU MD Medical Lab Tech Instructoriap displays analyst Division of Hospital Medicine Department of Internal Medicine [facility] DEPARTMENT: Hosp- [id number] Place of Service: Date of Service: 05/08/2013 CSN: [id number] Modifiers:GC Resident Involved: Yes Suggested CPT: 21259 Subsequent Visit Exp Prob Foc/Mod Complexity 25 [...] above. Jessica Lopez MD Anesthesiology, PGY-1 Pager [phone] [facility] HospitalAgus madden MD - 0 05/07/2013 4:36 PM [facility] 4 GENERAL MEDICINE ATTENDING PROGRESS NOTE [...] disorder 11) Developmental delay AGUS HU MD Medical Lab Tech Instructoriap displays analyst Division of Hospital Medicine Department of Internal Medicine [facility] DEPARTMENT: Hosp- [id number] Place of Service: - Date of Service: 05/07/2013 CSN: [id number] Modifiers:GC Resident Involved: Yes Suggested CPT: 60658 Subsequent Visit Exp Prob Foc/Mod Complexity 25 [...] above. Jessica Lopez MD Anesthesiology, PGY-1 Pager [phone] [facility] HospitalAgus madden MD - 0 05/06/2013 7:47 PM [facility] 4 GENERAL MEDICINE ATTENDING PROGRESS NOTE [...] kg/(m^2) No distress JVP difficult to assess [place] edema still present in the legs. Assessment [...] disorder 11) Developmental delay AGUS HU MD Medical Lab Tech Instructoriap displays analyst Division of Hospital Medicine Department of Internal Medicine [facility] DEPARTMENT: Hosp- [id number] Place of Service: [facility] [id number] Date of Service: 05/06/2013 CSN: [id number] Modifiers:GC Resident Involved: Yes Suggested CPT: 40927 Subsequent Visit Exp Prob Foc/Mod Complexity 25 [...] above. Jessica Lopez MD Anesthesiology, PGY-1 Pager [phone] lechano, MD Agus - 0 05/05/2013 2:15 [...] disorder 11) Developmental delay AGUS HU MD Medical Lab Tech Instructoriap displays analyst Division of Hospital Medicine Department of Internal Medicine [facility] DEPARTMENT: Hosp- [id number] Place of Service: Date of Service: 05/05/2013 CSN: [id number] Modifiers:GC Resident Involved: Yes Suggested CPT: 49223 Subsequent Visit Exp Prob Foc/Mod Complexity 25 [...] above. Jessica Lopez MD Anesthesiology, PGY-1 Pager [phone] Jay Jay Howell MD - 05/04/2013 5:22 [...] Jay Grimaldo MD Internal Medicine, PGY-3 Pager [phone] Deion Lomeli - 2012 4:52 PM PDTTransthoracic [...] disorder 11) Developmental delay AGUS HU MD Medical Lab Tech Instructoriap displays analyst Division of Hospital Medicine Department of Internal Medicine [facility] DEPARTMENT: Hosp- [id number] Place of Service: - Date of Service: 05/04/2013 CSN: [id number] Modifiers:SEUN Resident Involved: Yes Suggested CPT: 62517 Subsequent Visit Exp Prob Foc/Mod Complexity 25 min aDaniel hannah MD - 8:47 AM PDT Neurology Follow Up Note Author: RAYNE HAMLIN MD Attending: Agus Hu MD Date: 05/04/2013 8:48 AM Patient: Keo Lane [facility] Day: 2 ID: Keo Lane is a [...] chills, diaphoresis, chest pain, nausea, vomiting, diar roahn, numbness, tingling, weakness and confusion. No acute [...] mg Oral QPM Pertinent Imaging: None Assessment: eKo Lane is a 47 y.o. year old [...] Hamlin MD Department of Neurology PGY-1 Pager [phone] PGY-4 Addendum I can follow as her [...] Jay Grimaldo MD Internal Medicine, PGY-3 Pager [phone] elenAviva - 2012 2:19 PM PDT INPATIENT PROGRESS NOTE Hospital Day:2 Author: AVIVA WATKINS Attending Physician: Agus Hu MD 24-hour events -- Episode of seizure with full body shaking 20s in duration per nursing report. At [facility] ruby luation, found to be [...] subsequently started on phenytoin. Last seizure per front office developer was 03/26 but front office developer was unaware that she had a seizure [...] assessment and plan. Aviva Watkins MS4, Pager [phone] Alexandrea, Too Bruno MD - 05/03/2013 1:52 [...] to knee B/L, +1 edema up to longterm c correction b/l Psychiatric: appropriate mood and affect, cooperative [...] above. Jessica Lopez MD Anesthesiology, PGY-1 Pager [phone] documented in this enco unter H&P Notes Onur Schwab MD,MPH - 05/10/2013 1:42 PM PDTFormatting of this note might be diff erent from the original. INTERVENTIONAL CARDIOLOGY Pre Procedure History and Physical PCP: Gela Trimble NP Referring Is Technician: Tello Gr MD Cath Attending: Allison Brody [...] Family History of Premature CAD: unknown Prior [place]: no Prior Heart Failure: no Prior Valve [...] 1 Patch 1 Patch Transdermal DAILY Judi Houston MD 1 Patch at 05/10/13 0815 omeprazole [...] alert, mild distress and cooperative, obese HEENT: [place]it[place] conjuctivae and moist tongue Neck: short, difficult [...] Developmental delay 12) hypothyroid AGUS HU MD Medical Lab Tech Instructoriap displays analyst Division of Hospital Medicine Department of Internal Medicine [facility] DEPARTMENT: Hosp- [id number] Place of Service: Date of Service: 05/03/2013 CSN: [id number] Modifiers:GC Resident Involved: Yes Suggested CPT: 65175 Initial Visit Comp/High Complexity 70 min ay, [...] pHTN per report. HPI: Patient lives at [facility] which is Group adult home in [place], [place]. Care give r at bed side during interview. States that over the past month(s) patient's breathing has b ecome increasingly short and has gained "at least 20 pounds". Also with worsened LE edema. She initially presented to [facility] on after presented with recurrent s [...] she has been using regularly. Transferred to [facility] from OSH-ED after presenting this am with [...] to 100/80s. Initial vitals on arrival at [facility] were T 36.6 BP 110/69 P 74 RR 20 Spo2 90-93 % on 5 LNC At beside patient states she has had no fevers or chills recently. States that swelling in her legs is persistant and is worse than normal espiecially this morning. States was short of breath earlier during ambulance ride that has now improved since getting IV lasix in [facility] e. [place] that she feels well currently [...] cocaine nothing since SH: Son lives in [place] who is 30 and estranged. Friend Desmond [...] JUDI HOUSTON MD Internal Medicine PGY-2 Pager [phone] documented in this en counter Procedure Notes Other, Faculty - 05/11/2013 8:40 AM PDTAssociated Order(s): CARDIOLOGYElectronically shereen d by Faculty Other at 05/11/2013 8:40 AM Allison Pandey MD - 05/10/2013 2:13 PM PDTAss ociated Order(s): RIGHT HEART CATHETERIZATIONProcedure(s): RIGHT HEART CATHETERIZATIONCARDIA C HOTEL BREAKFAST ATTENDANT PATIENT NAME: Keo Lane [facility] #: [id number] AGE: 47 y.o. SEX: female CATH DATE: [...] Using the standard Seldinger technique, an 8 Serbian sh eath was placed in the jugular [...] of this report. MD Allison Yañez M.D. Medical Lab Tech Instructoriap displays analyst Division of Cardiovascular Medicine [facility] ther, Faculty - 05/08 9:18 AM PDTAssociated [...] Apply 1 Patch to skin once daily. [place]-3 Fatty Acids-Vitamin E (FISH OIL) 1,000 mg [...] t o be complete and accurate. This VICE PRESIDENT FOR INSTRUCTION list has been updated to reflect any discrepancies found during the med rec interv iew. Note - Updated Divalproex regimen per facility MAR: 250 mg every morning and 500 mg ever y evening A total of 15 minutes were spent reviewing the prior to admission medication list note writ ten by agriculture intern, Sanjana For any further questions regarding this information contact pharmacy, pager #[phone] Thank you, Lexie Cook Pharm[place]. [place] [phone] Sanjana Baker - 0 05/11/2013 12:06 PM PDT Pharmacy Services: Admission Medication Reconciliation Medication Source/Reliability: Did not speak to patient. [employer]. Sent their MAR I reviewed patient's [...] to speak to patient. [facility] has the allergies below on file, with the addition of peas. Allergies Allergen Reactions Erythromycin Flagyl (Metronidazole) Penicillins Sulfa (Sulfonamide Antibiotics) Keo Lane is a 47 year old female admitted to for volume overload, pulmonary HTN. The patient s most recent medication information was obtained from [employer] [place], where the patient lives. Pharmacy Preferences: No preferred pharmacy on file. [employer] arranges for the patients medications The above [...] information contact the Medication Reconciliation Pharmacist, pager #[phone] Thank you, Sanjana Farah Student pager ID number [phone] PharmD candidate year [phone] Hung Mccrary MD - 05/11/2013 8:41 AM [...] Aye Carrillo MD Internal Medicine, PGY-1 Pager [phone] Late entry for 11 May: Pt interviewed [...] and management. Tello Humphries M.D. Director, Electrophysiology Official Court Reportershop steward [facility] Cardiovascular [place] [facility] [place] [address] eslee Archer howard H - 05/10/2013 8:38 [...] Tammie Archer MD Internal Medicine, PGY2 Pager: [phone] Hung Mccrary M D - 05/10/2013 8:11 [...] Aye Carrillo MD Internal Medicine, PGY-1 pager [phone] Pt interviewed & examined by me, reviewed w Dr. Carrillo whose note states our findings, imp r & recs in full. Artie Brown oleKate hector - 05/09 12:42 PM PDT TOBACCO CESSATION CONSULT 05/09/[address] [id number] Patient Status at Consult: Pt was very [...] with cessation. Encouraged patient to call the [place] [employer] Quit Line 4-378- QUIT-NOW for counseling. 7. Recommendations: For comfort [...] 8-10 weeks in duration. 8. Planned Follow-up: [facility] Smoking Cessation Center will follow-up with patient via telepho ne after discharge for cessation support. Assessment 305.1 Tobacco Use Disorder No past medical history on file. Allergies Allergen Reactions Erythromycin Flagyl (Metronidazole) Penicillins Sulfa (Sulfonamide Antibiotics) Kate Alba MA, [facility] Tobacco Artist Blacksmith [facility] Smoking Cessation Center [phone] [email or web address] Hung Mccrary MD - 05/09 11:52 AM [...] tolerated Aye Carrillo MD Internal Medicine, PGY-1 [phone] Late entry for 09 May: Pt interviewed [...] her physiology. Tello Humphries M.D. Director, Electrophysiology Official Court Reportershop steward [facility] Cardiovascular [place] [facility] [place] [phone] eslee Archer H - 05/09/2013 11:39 AM [...] home O2 who presented on 05/02/2013 from [facility] in [place] with volume overload. Caregiver tells me [...] of 75mmHg. Pt was seen by a Is Technician in [place] who recommended Sleep Study and PFTs as [...] cocaine nothing since SH: Son lives in [place] who is 30 and estranged. Friend Desmond [...] EKG NSR, rate of 71, RA deviation, UT of 200ms and QTC of 480ms. No [...] Tammie Archer MD Internal Medicine, R2 pager [phone] Demetra Hung, M D - 05/08/2013 6:00 [...] AM PDTTOBACCO CESSATION CONSULT 05/08/[address] [id number] Goal: Tobacco Cessation Consult Outcome: Goal unable [...] to speak to patient. Kate Alba MA, [facility] Tobacco Artist Blacksmith [facility] Smoking Cessation Center [phone] [email or web address] Hung Mccrary MD - 05/07 9:42 AM [...] injection 5,000 Units, 5,000 Units, Subcutaneous, Q8H, Juid Houston MD, 5,000 U nits at 05/07/13756 [...] ordered for tomorrow. Christiano montes clinical pharmacist (#[phone]) or call central inpatient pharmacy ([phone]) with [employer] Gentleman bhanu. Thank you, Violeta Saxena PharmD, [facility] Pager [phone] signed by Violeta Saxena PharmD at 05/07/2013 8:59 AM Javad Lopez MD - 05/06/2013 10:02 AM PDTI performed a history and physical examination of the patie nt and discussed her management with the resident. I reviewed the resident s note and agr ee with the documented findings and plan of care. LISA RIVERS MD [address] [facility] Mailcode: [address] [place] [id number] [facility] DEPARTMENT: [facility]- [id number] Place of Service: [facility] Date of Service: 05/29/2013 CSN: [id number] Modifiers:GC Resident Involved: yes Suggested CPT: 73677 Subsequent Visit Exp Prob Foc/Mod Complexity 25 [...] noted. Leobardo Rocha MD pgy2 Internal Medicine, [id number] Lisa Lopez MD - 03/2013 9:48 AM PDTI performed a history and physical examination of the patient and discus sed her management with the resident. I reviewed the resident s note and agree with the d ocumented findings and plan of care. LISA RIVERS MD [address] [facility] Mailcode: [address] [place] [id number] [facility] DEPARTMENT: [facility] [id number] Place of Service: [facility] Date of Service: 05/29/2013 CSN: [id number] Modifiers:GC Resident Involved: yes Suggested CPT: 12342 Subsequent Visit Detailed/High complexity 35 min Leobardo [...] noted. Leobardo Rocha MD pgy2 Internal Medicine, [id number] Aye Fletcher MD - 05/04/2013 3:51 PM [...] daily activities under the supervision of her penitentiary for DD until 03/26 when she was [...] rapidly increasing edema and was transferred to [facility] for further evaluation. In route to [facility], EMS observed an acute desaturation (90-->83% on [...] with rheumatic fever. Social Hx: Lives in pen[place]iary. 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 Smoking hx- [...] labs: -elevated BNP- 220 -Negative troponin -AB.44 [facility]: CBC unremarkable. Mild thrombocytopenia. BMP wnl. Corrected calcium wnl. Elevated ALT/AST, Alk phos, and NH4 (84). Decreased albumin and total protein. Normal bili. TSH wnl Subtherapeutic phenytoin and valproic acid. Urine: Positive LCE, large WBC. Culture pending. Imaging: CXR 05/02 ([facility]): Mildly enlarged cardiac silhoette. Small L pleural [...] PE -Recommend repeat of TTE here at [facility] -Recommend scheduling pt for PFTs given risk factors for COPD and new O2 requirement. -Given new dx of GLORIA, would consider input from [facility] sleep medicine. -If normal PFTs, appropriate to obtain right heart cath for further evaluation -Continue O2 therapy Other issues per primary team. Appreciate consult and will continue to follow. Aye Carrillo MD Internal Medicine, PGY-1 [id number] letrey, Rosalina Branch MD - 05/03/2013 4:44 [...] Per notes she was admitted to [facility] 03/26/13 with a reported recurrent [...] alcohol, lives in Group adult home in [facility] Family: no family history of seizures [...] plan. Daniel Cerna MD PGY-4 Neuro pgr [phone] documented in this e ncounter Miscellaneous Notes [...] orders completed and faxed to [facility]ai at [facility]. Spoke with Isai earlier, [...] AM. Packet for SN F taken to [facility] desk to go with pt. [facility] stretcher transport with oxygen confirmed f or 12 noon pickup. RN to RN report to be called to [phone]. 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 Patient likes to talk about fishing. 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 Patient likes to talk about fishing. Did [...] Christian Ojeda at 05/11/2013 6:51 PM PDTPlan [facility] Ailin Scott - 04/30 2:02 PM PDTProblem: Case Management Goals Goal: Discharge Needs Met Outcome: Expected progress toward goal Attempting all day to facilitate DC to [facility]. Spoke wit Dr. Lopez several times, as well as Isai, Admissions at [place]. Our MD has been trying to reach the SNF MD all day, unsuccessfully. I was just given the information to call the [facility] ([phone]) and ask for the MD spring production supervisor for Dr. Carrillo (who is on vacat ion), as my MD has been unsuccessful in reaching Dr. Ansari ([phone]) to discuss contin ued diuresis plans. We are unable to arrange Medicaid stretcher transport before 1830 hours today, which puts the patient arriving at [facility] very late tonight. All agreed on plans for D C tomorrow, stretcher transport for 1100 am, notified SNF of plans. RN to RN report to be c alled to [facility] at [phone]. 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 Patient likes to talk about fishing. Did [...] care. Thank you, Maritza Koch, OTR/L Page [phone] lan o f Maritza Jacobo, OT - [...] overload from core pulmonale 2/2 pulmonary hypertension. ([facility] Relevant Precautions: Fall risk, mild developmental delay, monitor pulse and o2 sats with further activity No past medical history on file. No past surgical history on file. Living Environment: Pt lives in care facility in [place], 24 hour assist Prior Level of Function: Pt reports she typically completes dressing independently but for last several weeks has been requiring assist, typically gets to the restroom on her own and completes hygiene independently, does not use adaptive equipment for ambulation. Pt report s she likes to play [employer] Patient / Family Goal: To go home [...] heart cath later this afternoon. T/C to [facility] in [place], directed to pt's "coordinator", Gustavo ([phone]). He states the Home pt resides in [...] Await his return call. Ailin Scott, RN 5935 T/C from Gustavo, states he spoke with his Speech And Language Assistant, they cannot accommodate pt. She will need to go to a SNF for rehab. He states they send many of their clients to [facility]. T/C to Isai at [facility], she confirms they have a bed o pening and requests we fax information. Met with pt to discuss plans. She is in agreement with [facility]. Tasked to have SNF search send to [facility]. Attempting to obt ain PASR for MR/DD client, have call into [facility] at [phone], as well as Diversion Transiti on Coordinator, Jaime, at [place] Medicaid Office. Ailin Scott RN 1413 T/C from [facility] at [facility], they can accept pt tomorrow. PASR form completed by me (with assistance from Jaime as mentioned above). [facility] will also contact Medicaid [employer] for her own authorization. Notified Gustavo at [facility] that Keo has b een accepted to [facility]. Notified Dr. Lopez that SNF bed available for tomorrow. Will arrange Medicaid transport (they have to come from [facility]) today. MARANDA Champion [address] Mailcode: [address] [place] [address] [phone] AILIN SCOTT [address] Mailcode: [address] [place] [phone] lan of Demond - Rosana Brar, PT - 05/10/2013 11:49 AM PDTPhysical Therapy 05/10/2013 11:49 AM Hospital Day # 8. Patient seen on 7C Brief Hospital Course: Keo Lane is a 47 y/o F with PMHx morbid obesity, GLORIA, COPD (on h ome O2), bipolar/PTSD, developmental delay, hypothyroidism, and seizure disorder transferred from OSH with volume overload [facility] 2/2 pulmonary hypertension. ([facility] 05/09 ) Status Update: pt to go [...] continued PT intervention. Pt is a good Retirement Facility candidate. Activity Plan: Up to bedside commode or chair with 2 person greenhouse staff assist for safety. Up for all meals [...] of hospitalization: Pulmonary Hypertension - transferred from [facility] to ED with 1 month of progressive [...] Family contact/psych-social issues: Developmentally delay, has a pet care assistant, Tila, present at bedside during the day. Staying locally at a hotel at night. Tila is an employee of the patients detention. Patient likes to talk about fishing. Did [...] RN at 05/10/2013 6:53 AM PDTPlan of [facility] - Jose Aguiar RN - 05/09/2013 10:50 [...] Aguiar RN at 3 10:50 PM PDTPlan [facility] - Christian Ojeda - 05/09/2013 4:48 [...] ad uriah Living Environment: Lives in a penitentiary with 24hr caregivers in [place]. One caregiver, Dominique, is present at time of evaluation and able to provide further information. Pt defers to caregiver to provide info. There are several buildings within [employer] system, inclu ding the medical house, where [...] it girlie!" appeared eager to participate. Communication: Jamaican Barriers: none specific. Per caregiver, pt much [...] chair only. Not safe today to progress. [facility] BASIC MOBILITY How much difficulty does the [...] could provide this level of care within [facility] where she lives. She will need a facility which can provide her heavy physical assi st and would benefit from additional PT to progress mobility and strength. Pt appropriate fo r inpt PT to address deficits. Interpretation of [facility] Short Form - Basic Mobility: Score (in [...] reviewed. Juana Naylor RD, LD Pager # [phone] andoff - Codey koroma, Jose Otoole RN - 05/09/2013 6:31 AM PDTNursing Handoff Report: Primary focus of hospitalization: Pulmonary Hypertension - transferred from [facility] to ED with 1 month of progressive [...] Family contact/psych-social issues: Developmentally delay, has a pet care assistant, Tila, present at bedside during the day. Staying locally at a hotel at night. Tila is an employee of the patients detention. Patient likes to talk about fishing. Did [...] focus of hospitalization: Pulmonary Hypertension- transferred from [facility] al to ED with 1 [...] Family contact/psych-social issues: Developmentally delay, has a pet care assistant, Tila, present at bedside during the day. Staying locally at a hotel at night. Tila is and employee of [facility] [employer] [facility] patients detention. Patient likes to talk about fishing. Did [...] hospital encounter. Lives With: Caregiver Living Arrangement: [facility] in [place] Functional Level Prior to Admission: 2-->assistive person [...] showing pHTN per report. Patient lives at [facility] which is Group adult home in [place], [place]. Care give r present.States that over the past month(s) patient's breathing has become increasingly j luis rt and has gained "at least 20 pounds". Also with worsened LE edema. Anticipated Discharge Needs: Return to [facility] with assist, Home O2 Assessment [place] [id number] lan of Marek West RN - 05/08/2013 [...] AM PDTPrimary focus of stay: Transferred from [facility] f or further work up. R heart [...] shift Psych/social issues: Developmentally delayed, has a pet care assistant, Tila, present during the d ay. Staying locally at a hotel at night. Tila is and employee of the pt's detention. Pt lik es to talk about fishing. [...] PM PDTPrimary focus of stay: Transferred f [facility] for further work up. R [...] shift Psych/social issues: Developmentally delayed, has a pet care assistant, Modesta present during the day. Staying locally at a hotel at night. Modesta indicated that she will be relieved by ano ther caregiver from the pt's care center if her stay at [facility] becomes extended. Pt likes to t alk [...] as tolerated to sats >92%. valuation - [facility] kriss, Zeb Self RN - 05/07/2013 [...] AM PDTPrimary focus of stay: Transferred from [facility] f or further work up. R heart [...] shift Psych/social issues: Developmentally delayed, has a pet care assistant, Modesta present during the day. Staying locally at a hotel at night. Modesta indicated that she will be relieved by ano ther caregiver from the pt's care center if her stay at [facility] becomes extended. Pt likes to t alk [...] PM PDTPrimary focus of stay: Transferred from [facility] for further work up. R heart failure, [...] shift Psych/social issues: Developmentally delayed, has a pet care assistant, Modesta present during the day. Staying locally [...] PM PDTPrimary focus of stay: Transferred from [facility] for [facility] er work up. R heart failure, Pulmonary [...] eat, get OOB. Page sent to Dr. oLpez with info at 1500. Orders to follow up on: wean O2 for SaO2 >92%. Keep awake during the day as possible so can sleep at night Last pain assessment/reassessment: denied pain this shift Psych/social issues: Developmentally delayed, has a pet care assistant, Modesta present during the day. Staying locally [...] stay: Pulmonary Hypert ension - transferred from [facility], MR/DD, seizure d/o, and copd in the ED with 1 month of progressive sob and fluid retention. Pt is in need of further workup with no capaci ty at the current hospital. Pt seen by PCP this am who referred pt to sales and service associate who perfo rmed an echo and found [...] stand by assist. C are givers from [place] at bedside. Inhalers by bedside. Oxygen at 2.5L/min per NC(SaO2 > 92%). Oxygen saturation <92 with 2L/min per NC. Heart failure packed and education done today. Orders to follow up on: wean off O2 for SaO2 >92%. Last pain assessment/reassessment: denied pain, but gave one tab tylenol for comfort this m orning. Psych/social issues: Developmentally delayed, has a pet care assistant, Modesta present during the day. Patient likes [...] st ay: Pulmonary Hypertension - transferred from [facility], MR/DD, seizure d/o, and co pd in [...] pain Psych/social issues: Developmentally delayed, has a pet care assistant, Tila - she is present duri ng [...] able to state her na me, her exterior designer were weak bilaterally and she needed a deandre lift back to bed. The patient be came tearful and stated she did not know what happened. The patient's vital signs were stab le and per the telephone answering service operator she was in [place] in the 60's [...] but unable to s hdez her name. [employer] called, notified, remained with pt. VS remained stable, pt remained in sinus rhythm per technical support coordinator. Lift team called and pt put back [...] of stay: Pulmonary Hypertension - transferred from [facility], MR/DD, seizure d/o, and copd in the ED with 1 month of progressive sob a nd fluid retention. Pt is in need of further workup with no capacity at the current hospital . Pt seen by PCP this am who referred pt to sales and service associate who performed an echo and found pul [...] pain Psych/social issues: Developmentally delayed, has a pet care assistant, Tila - she is present cayla the [...] Nutrition Education Pt developmentally delayed. Lives in penitentiary. Caregiver is Dominique. Spoke with Dominique and pt today to offer low sodium diet education. Pt eating lunch (includes mashed potatoes with gravy, brownie, watermelon, plus some other items). Dominique states that penitentiary provides all meals for pt. There is [...] moderate compliance. Following Jazmyn Mcginnis RD Pgr #[id number] Comments: Iimy-dmc-kcvxhxnlc-related knowledge deficit r/t lack of prior exposure [...] exact wt Est needs using obesity guidelines: 2899-7441 kcal (18-23/kg AdjBW), 90g pro (2g/kg IBW) Moraima - Dario Aguiar RN - 05/04/2013 6:03 AM PDTPrimary focus of stay: Pulmonary Hypertension - transfe rred from [facility], MR/DD, seizure d/o, and copd in the ED with 1 month of progres sive sob and fluid retention. Pt is in need of further workup with no capacity at the [facility]. Pt seen by PCP this am who referred pt to sales and service associate who performed an echo and found pulmonary [...] pain Psych/social issues: Developmentally delayed, has a pet care assistant, Tila - she is present duri ng [...] focus of stay: Pulmonary Hypertension- transferred from [facility] 47 yo f with bipolar d/o, hypothyroidism, [...] labs. Psych/social issues: Developmentally delayed, has a pet care assistant, Tila- she is present demarco gaona the [...] focus of stay: Pulmonary Hypertension- transferred from [facility] 47 yo f with bipolar d/o, hypothyroidism, MR/DD and reported htn, seizure d/o, and copd in the ED with 1 month of progressive sob and fluid retention. Pt is in need of further workup with no capacity at the current hospital. Pt seen by PCP this am who referred pt to [facility] who performed an echo and [...] pain. Psych/social issues: Developmentally delayed, has a pet care assistant, Tila- she is present [facility] the day. Last patient visit (i.e. Falls/Activity/Comfort/Environment/Toileting/Skin): Lozano cath Anticipated or pending procedures: Will need TTE [facility] Ben May - 05/02/2013 8:29 PM PDTAmb report: C3, Pulmonary edema, issue keeping blood pressure up, BP 70/p, ETA 5 Advised 7C charge. [facility] - 05/02/2013 2:44 PM PDTPaged grp 18 ransfer Note - Damián Cervantes MD - 05/02/2013 2:34 PM PDTI NPATIENT MEDICINE TRANSFER CENTER NOTE General Medicine Critical Care Paramedic Attending Author; DAMIÁN CERVANTES MD PCP: No primary provider on file. No primary physician on file. Phone: None FAX: None REFERRING MD: Dr. Bowen (ED MD [facility]) REFERRING SITE: [facility] REASON/GOAL OF TRANSFER: Evaluation and possible [...] delay 5. Bipolar disorder DAMIÁN CERVANTES MD shop steward Division of Hospital Medicine Department of Medicine [facility] [place] [address] [place] [address] ake [facility] - Xiang May - 05/02/2013 2:28 [...] [facility] | [address] | [place] [address] | | | SERVICES, CORE | PARK [...] [facility] | [address] | [place] [address] | | | SERVICES, CORE | PARK [...] | | | LABORATORY | | | SCOTTISH | | | SERVICES, | | | [...] the MDRD equation recommended by the | [facility] | | National Kidney Disease [...] [facility] | [address] | [place] [address] | | | SERVICES, CORE | PARK [...] [facility] | [address] | [place] [address] | | | SERVICES, CORE | PARK [...] | + + + + + | [facility] | [address] | [place] [address] | | | JULIETA, ELMER | NADJA [...] | + + + + + | [facility] | [address] | [place] [address] | | | SERVICES, CORE | NADJA [...] [facility] | [address] | [place] [address] | | | SERVICES, [place] | PARK [...] | | | LABORATORY | | | SCOTTISH | | | SERVICES, | | | [...] | + + + + + | [facility] | [address] | [place] [address] | | | SERVICES, [facility] | [address] | | | + [...] [facility] | [address] | [place] [address] | | | SERVICES, CORE | PARK [...] [facility] | [address] | [place] [address] | | | SERVICES, CORE | PARK [...] | | | LABORATORY | | | SCOTTISH | | | SERVICES, | | | [...] | + + + + + | [facility] | [address] | [place] [address] | | | SERVICES, [facility] | [address] | | | + [...] by | | | | | | [employer],500 | | | | | | Lázaro Carter, [facility] [place] | | | | | | [address] | | | | | | [phone].[employer]. | | | | | | Zane [...] [facility] | [address] | [place], [place] | | | [facility] | | [address] | | + + + + + [...] | + + + + + | [facility] - | [address] | [place] [address] | | | [place] | | | | + + + [...] LABORATORY | [address] | [place] [address] | | | SERVICES, SPECIAL | PARK [...] | + + + + + | [facility] | [address] | [place] [address] | | | JULIETA, ELMER | PARK [...] | + + + + + | [facility] | [address] | [place] [address] | | | SERVICES, CORE | NADJA [...] | | | LABORATORY | | | SCOTTISH | | | SERVICES, | | | [...] [facility] | [address] | [place] [address] | | | SERVICES, CORE | NADJA [...] | + + + + + | [facility] | [address] [facility] | [place] [address] | | | SERVICES, CORE | NADJA [...] | | | LABORATORY | | | SCOTTISH | | | SERVICES, | | | [...] [facility] | [address] | [place] [address] | | | SERVICES, CORE | PARK [...] | + + + + + | [facility] | [address] | [place] [address] | | | SERVICES, ELMER | NADJA [...] + + + + + + | GDW89-38% | 0.75 | 2.52 L/sec | [facility] | | | PRE | | | SPECIAL | | | | | | DIAGNOSTICS | | | | | | - | | | | | | PULMONARY | | | | | | FUNCTION | | + + + + + + | ROK21-91% | 30 | % | [facility] | [...] [facility] | | | INTERPRETAT | ID# [id number] | | SPECIAL | | | ION [...] HU | | | | | | Clinical Research Analyst: | | | | | | TONI [...] | | | | | | Order# [id number] | | | | | | | [...] | | | | | | 68 [id number]% | | | | | | L/sec 2.52 | | | | | | 0.75 | | | | | | [id number] L/sec | | | | | | | | | | | | 0.75PEF | | | | | | L/sec 6.04 | | | | | | 2.67 54LAF58% | | | | | | L/sec [...] ID: | | | | | | [id number] | | | | | | Date: [...] [facility] | [address] | [place], [place] | | | DIAGNOSTICS - | [address] | [address] | | | PULMONARY FUNCTION | | [...] [facility] | [address] | [place] [address] | | | SERVICES, CORE | PARK [...] | + + + + + | [facility] | [address] | [place] [address] | | | SERVICES, CORE | NADJA [...] | | | LABORATORY | | | SCOTTISH | | | SERVICES, | | | [...] | + + + + + | [facility] | [address] | [place] [address] | | | SERVICES, CORE | PARK [...] | + + + + + | [facility] | [address] | [place] [address] | | | SERVICES, EL[place] | NADJA [...] | + + + + + | [facility] | [address] | [place] [address] | | | JULIETA, ELMER | NADJA [...] [facility] | [address] | [place] [address] | | | SERVICES, [place] | PARK [...] | | | LABORATORY | | | SCOTTISH | | | SERVICES, | | | [...] | + + + + + | [facility] | [address] | [place] [address] | | | [facility] | [address] | | | + [...] | + + + + + | [facility] | [address] | [place] [address] | | | SERVICES, CORE | PARK [...] | + + + + + | [facility] | [address] | [place] [address] | | | SERVICES, CORE | PARK [...] | + + + + + | [facility] | [address] | [place] [address] | | | SERVICES, CORE | NADJA [...] | + + + + + | [facility] | [address] | [place] [address] | | | SERVICES, CORE | NADJA [...] | | | LABORATORY | | | SCOTTISH | | | SERVICES, | | | [...] | + + + + + | [facility] | [address] [facility] | [place] [address] | | | SERVICES, EL[place] | NADJA [...] [facility] | [address] | [place], [place] | | | ANNA POINT OF CARE | [address] | [address] | | | TESTS | | | [...] + + | [facility] | [address] [facility] | [place] [address] | | | SERVICES, CORE | PARK [...] | + + + + + | [facility] | [address] | [place] [address] | | | SERVICES, CORE | NADJA [...] [facility] | [address] | [place] [address] | | | SERVICES, CORE | PARK [...] [facility] | [address] | [place] [address] | | | SERVICES, CORE | PARK [...] | | | LABORATORY | | | SCOTTISH | | | SERVICES, | | | [...] | + + + + + | [facility] | [address] | [place] [address] | | | [facility] | [address] | | | + + + + + EEG ROUTINE (05/04/2013) + + + | Narrative | Performed At | + + + | Patient Name: Keo Lane Date of : 1965 Medical | [facility] - | | Record Number: [id number] Date of Test: 05/04/2013 Place of Service: | [facility], | | [facility] [phone] [facility] Department: EEG [place] - [id number] | POINT OF CARE | | ROUTINE [...] Modifier: GC - Resident Present Suggested CPT: 94629 - EEG Routine | | | Awake Only Suggested Dx: 780.39 - Convulsions | | + + + + + + + + | Performing | Address | City/State/Zipcode | Phone Number | | Organization | | | | + + + + + | [facility] | [address] | [place], [place] | | | [facility] | [address] | [address] | | | TESTS | | | [...] | + + + + + | [facility] | [address] | [place] [address] | | | SERVICES, CORE | [address]JA [...] | | | LABORATORY | | | SCOTTISH | | | SERVICES, | | | [...] | + + + + + | [facility] | [address] | [place] [address] | | | SERVICES, CORE | NADJA [...] | [facility] | | Test performed by: [facility] [address] | REFERENCE LAB | | [place] [address] | | + + + + + [...] | + + + + + | [facility] | [address] | [place] [address] | | | SERVICES, CORE | NADJA [...] | | | Final CULTURE | | [place] | | | | RESULT:No growth (<1000 [...] + | [facility] - | [address] | [place] [address] | | | [place] | | | [...] | 1.023 | 1.005 - 1.030 | [facility] | | | GRAVITY | | | [...] [facility] | [address] | [place] [address] | | | SERVICES, CORE | NADJA [...] | [facility] | [address] | [place] [address] | | | SERVICES, CORE | PARK [...] [facility] | [address] | [place] [address] | | | SERVICES, CORE | PARK [...] [facility] | [address] | [place] [address] | | | SERVICES, CORE | PARK [...] | | | LABORATORY | | | SCOTTISH | | | SERVICES, | | | [...] | + + + + + | [facility] | [address] | [place] [address] | | | SERVICES, [facility] | [address] | | | + [...] | + + + + + | [facility] - | [address] | [place] [address] | | | [place] | | | [...] + | [facility] - | [address] | [place] [address] | | | [place] | | | | + + + [...] HUMPHRIES | | | | | | ([phone]) on 05/24/2013 | | | | | | 9:44:07 PM | | | | + + + + + + + + | Specimen | + + | | + + + + + | Narrative | Performed At | + + + | Please click | [facility] | | on view image for the detailed interpretation from [employer] results. | CARDIOLOGY | + + + + + | Procedure Note | + + | Interface, Cardiology Results - 05/24/2013 9:44 PM PDT Please click on view image | | for the detailed interpretation from [employer] results. | + + + + + + + | Performing | Address | City/State/Zipcode | Phone Number | | Organization | | | | + + + + + | [facility] | [address] | [place], [place] | | | CARDIOLOGY | [address] | [address] | | + + + + + [...] view image for the detailed interpretation from [employer] results. | CARDIOLOGY | + + + + + | Procedure Note | + + | Interface, Cardiology Results - 05/04/2013 11:36 AM PDT Please click on view image | | for the detailed interpretation from [employer] results. | + + + + + + + | Performing | Address | City/State/Zipcode | Phone Number | | Organization | | | | + + + + + | [facility] | [address] | [place], [place] | | | CARDIOLOGY | [address] | [address] | | + + + + + [...] [facility] | [address] | [place] [address] | | | SERVICES, CORE | [address] [...] [facility] | [address] | [place] [address] | | | SERVICES, [place] | NADJA [...] [facility] | [address] | [place] [address] | | | [place]ON | NADJA [...] | | | LABORATORY | | | SCOTTISH | | | SERVICES, | | | [...] | + + + + + | [facility] | [address] [facility] | [place] [address] | | | SERVICES, [facility] | [address] | | | + [...] | | | | First dose on [facility] 05/03/13 at 0900, | | | [...] PDT | | | | | on [facility] 05/03/13 at 1415, Last dose | | | | | | | on [facility] 05/05/13 at 2100 | | | [...] | | | DAILY, First dose on [facility] 05/03/13 | | AM PDT | [...] | | 8 HOURS, First dose on [facility] 05/03/13 | | AM PDT | [...] 8:57 | | | | | on [facility] 05/03/13 at 0900, Until | | [...] | | | | First dose on [facility] 05/03/13 at | | AM PDT [...] AM PDT | | | | | [facility] 05/03/13 at 0900, Until | | [...] | | | oral, ONCE, 1 dose, [facility] 05/10/13 | | PM PDT | [...]
--- OUTSIDE RECORDS SUMMARY | ~2020-07-30 | XMS | Encounter Summary ---
Demographics + + + | Address | [address] | | | [place] [address] | + + + | Home Phone [...] + | [employer] | ECON | [phone] | | | | | Unknown | | + + + + + Care Team Providers + +------+ + | Care Gang Pusher Name | Role | Phone | + [...] | [address], [place] | [place] [address] | | | | | [address] | [phone] | | | | | [phone] | | | +--------+ + + + [...]
--- OUTSIDE RECORDS SUMMARY | ~2020-07-30 | XMS | Encounter Summary ---
Demographics + + + | Address | [address] | | | [place] [address] | + + + | Home Phone [...] + | [employer] | ECON | [phone] | | | | | Unknown | | + + + + + Care Team Providers + +------+ + | Care Verification Manager Name | Role | Phone | [...] | hypertension (HCC) | | | | [place], | | (Primary Dx); | | | | [place] [address] | | Obstructive sleep | | | | [phone] | | apnea; Hypoxemia; | | | | | | COPD (chronic | | | | | | obstructive | | | | | | pulmonary disease) | | | | | | (HCC); [place]; | | | | | | Chronic right-sided | | | | | | heart failure ([facility]); | | | | | | [...] MD Elo Bernardo Pulmonary [facility] Critical [facility] [address] [place], [address] HPI Margarita Rowley is a 48 y.o. [...] Years of Education: N/A Occupational History Disabled. [employer] Social History Main Topics Smoking status: Former Smoker -- 1.0 packs/day for 20 years Types: Cigarettes Quit date: 05/14/2013 Smokeless tobacco: None Alcohol Use: Yes Comment: history of abuse Drug Use: Yes Special: Cocaine Comment: history of cocaine use Sexually Active: None Other Topics Concern None Social History Narrative Lives at [facility]. Allergies: Allergies Allergen Reactions Erythromycin Metronidazole Penicillins [...] TABS Take 2,000 Units by mouth Daily. [place] Starch POWD by Does not apply route [...] 100 mg by mouth 2 times daily. [place]-3 Fatty Acids (SEA-OMEGA 30) 1200 MG CAPS [...] made to ensure accuracy; however, inadvertent computerized hog room supervisor errors may be pre sent. documented in [...] | performed on the Kathryn | | [employer] Plan. ARACELI | | | | [employer] | | MEDICAL | | | [...] + | [facility] | [address] | [place], [place] | [phone] | | [facility] | | [address] | | | - LABORATORY | | | | + + + + + | [facility] | [address] | [place], [place] | | | [facility] | | [address], [facility] | | | - LABORATORY [...]
--- OUTSIDE RECORDS SUMMARY | ~2020-07-30 | XMS | Encounter Summary ---
Demographics + + + | Address | [address] | | | [place] [address] | + + + | Home Phone [...] + | [employer] | ECON | [phone] | | | | | Unknown | | + + + + + Care Team Providers + +------+ + | Care It Communications Specialist Name | Role | Phone | [...] [facility] | | | | | [address] [place] | [place] [address] | | | | | [address] | [phone] | | | | | [phone] | | | +--------+ + + + [...]
--- OUTSIDE RECORDS SUMMARY | ~2020-07-30 | XMS | Encounter Summary ---
Demographics + + + | Address | [address] | | | [place] [address] | + + + | Home Phone [...] + | [employer] | ECON | [id number] | | | | | Unknown | | + + + + + Care Team Providers + +------+ + | Care Mill Tender Name | Role | Phone | + +------+ + | Yuni Shrestha | PCP | | + +------+ + Encounter Details +--------+ + + + + | Date | Type | Department | Care Team | Description | +--------+ + + + + | 06/11/ | Abstract | [facility] [place] | [facility], | | | 2016 | | GASTROENTEROLOGY | BRITTANY Maddox [address] | | | | | [address] [place] | [address] | | | | | [address] [place], [place] | [place], [place] | | | | | [address] | [address] | | | | | [phone] | | | +--------+ + + + [...]
--- OUTSIDE RECORDS SUMMARY | ~2020-07-30 | XMS | Encounter Summary ---
Demographics + + + | Address | [address] | | | [place] [address] | + + + | Home Phone [...] + | [employer] | ECON | [phone] | | | | | Unknown | | + + + + + Care Team Providers + +------+ + | Care Structural Analyst Name | Role | Phone | [...] [place], [place] | | | | | [address] | [address] | | | | | [phone] | [phone] | | | | | | | [...]
--- OUTSIDE RECORDS SUMMARY | ~2020-07-30 | XMS | Encounter Summary ---
Demographics + + + | Address | [address] | | | [place] [address] | + + + | Home Phone [...] + | [employer] | ECON | [phone] | | | | | Unknown | | + + + + + Care Team Providers + +------+ + | Care Data Analytics Specialist Name | Role | Phone | [...] + | 05/08/ | Anesthesia | [facility] | Scout Lagunas, | | | 2019 | Event | MED CTR OR INTRA OP | MD [address] | | | | | [address] | [place] | | | | | [place] | [address] | | | | | [address] | | | | | | [phone] | | | +--------+ + + + [...] 05/08/20 1033 by | | eral | uccq-rmf-xwzeqy catheter system; | Janeth Norwood, | Kim [...] EVALUATION Margarita Rowley 54 y.o. female 1965 [id number] Procedure(s) Left EXTRACTION CATARACT W/ LENS IMPLANT [...] Scout Lagunas MD 05/08/2020 10:45 AM PDT [facility] MD at 07/2020 10:45 AM PDTAnesthesia Preprocedure Evaluation - Scout Lagunas MD - 05/08/2020 8: 10 AM PDT ANESTHESIA PREANESTHESIA EVALUATION Margarita Rowley 54 y.o. female 1965 [id number] Procedure(s): RIGHT EXTRACTION CATARACT W/ OR W/O LENS IMPLANT (Right Eye) Medical,anesthesia, drug, allergy histories reviewed, NPO status verified. Review of Systems / Med History Anesthesia History Emergently intubated in [place] 01/2020 -- videolaryngoscope used witho ut incident.. [...] NOTE Margarita Rowley 54 y.o. female 1965 [id number] Left EXTRACTION CATARACT W/ LENS IMPLANT (Left [...] Lagunas MD 05/08/2020 10:04 AM PDT [facility] by Scout Lagunas MD at 07/2020 [...]
--- OUTSIDE RECORDS SUMMARY | ~2020-07-30 | XMS | Encounter Summary ---
Demographics + + + | Address | [address] | | | [place] [address] | + + + | Home Phone [...] Author + + + | Author | [facility] | + + + | Organization | [facility] | + + + | Address | Unknown | + + + | Phone | Unavailable | + + + Support + + +---------+ + | Name | Relationship | Address | Phone | + + +---------+ + | Lidia Thibodeaux | ECON | Unknown | | + + +---------+ + Care Team Providers + +------+ + | Care Automobile Accessories Installer Name | Role | Phone | [...] | | | | Melanocytic | Yuni, LABEL CODER | Mraivel C, | | | | | nevi, | [facility] | ,PhD 1936 | | | | | unspecified | Terence | Jose Carlos | | | | | | Family Care | [place], | | | | | | [address] | [place] [address] | | | | | | Terence [place] | Phone: | | | | | | [place], | [phone] | | | | | | [place] [address] | Fax: | | | | | | Phone: | [phone] | | | | | | [phone] | | | | | | | Fax: | | | | | | | [phone] | | +--------+--------+ + + + + Encounter Details +--------+---------+ + + + | Date | Type | Department | Care Team | Description | +--------+---------+ + + + | 07/19/ | Office | Dermatology at | Marivel Rao, | Nevus (Primary Dx) | | 2015 | Visit | [place] [facility] | ,PhD 1936 | | | | | Clinic [address] | [address] [place], [place] | | | | | [place], [place] | [address] | | | | | [address] | [phone] | | | | | [phone] | | | +--------+---------+ + + + [...] skin cance rs including melanoma. ? The [place] [employer] (AAD) recommends you wear [...] is available at the following websites: http://www.[facility]/xd/health/services/dermatology/for-patients/health_info.cfm - [facility] Derm atology http://www.aad.org/public/sun/smart.html - AAD Website documented [...] cancer. 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 Vega skin type II. She does [...] fail to improve. Marivel Rao M.D. Ph.D. Steward/Stewardess Third Class Department of Dermatology [facility] ([facility]) Dermatology documented in th is encounter Plan of Treatment Not on filedocumented as of this encounter Visit Diagnoses + + | Diagnosis | + + | Nevus - Primary Benign neoplasm of skin, site unspecified | + + documented in this encounter
--- OUTSIDE RECORDS SUMMARY | ~2020-07-30 | XMS | Encounter Summary ---
Demographics + + + | Address | [address] | | | [place] [address] | + + + | Home Phone [...] + | [employer] | ECON | [phone] | | | | | Unknown | | + + + + + Care Team Providers + +------+ + | Care Soup Mixer Name | Role | Phone | [...] | | ABDIRASHID BROTHERS | [facility] [place] | | | | | [place] | [address] | | | | | [address] | [phone] | | | | | [phone] | | | +--------+ + + + [...]
--- OUTSIDE RECORDS SUMMARY | ~2020-07-30 | XMS | Encounter Summary ---
Demographics + + + | Address | [address] | | | [place] [address] | + + + | Home Phone [...] + | Organization | [facility] | | | and [place] | + + + | Address | Unknown | + + + | Phone | Unavailable | + + + Support + + + + + | Name | Relationship | Address | Phone | + + + + + | [employer] | ECON | [phone] | | | | | Unknown | | + + + + + Care Team Providers + +------+ + | Care Technical Support Engineer Name | Role | Phone | + +------+ + | Gela Trimble NP | PCP | | + +------+ + Encounter Details +--------+ + + + + | Date | Type | Department | Care Team | Description | +--------+ + + + + | 08/27/ | Hospital | [facility] | Offenstein, | Primary pulmonary | | 2012 | Encounter | MED CTR LABORATORY | Vera Farrar MD | hypertension (HCC) | | | | [address] | | | | | | [place] | | | | | | [address] | | | | | | [phone] | | | +--------+ + + + [...] [facility]) | | | | | [...] + + + +---------+ + + | [place] Starch POWD | by Does not apply [...] + + + +---------+ + + | [place]-3 Fatty | Take by mouth. | | [...] + | [facility] | [address] | [place] | [phone] | | [facility] | | [address] | | | - LABORATORY | | | | + + + + + | [facility] | [address] | [place] | | | [facility] | | [phone] [place] [address] | | | - LABORATORY | | [...] + | [facility] | [address] | [place] | [phone] | | [facility] | | [address] | | | - LABORATORY | | | | + + + + + | [facility] | [address] | [place], [place] | | | [facility] | | [address] | | | - LABORATORY | | | | + + + + + documented in this encounter Visit Diagnoses + + | Diagnosis | + + | Primary pulmonary hypertension (HCC) Primary pulmonary hypertension | + + documented in this encounter"
--- OUTSIDE RECORDS SUMMARY | ~2020-07-30 | XMS | Encounter Summary ---
Demographics + + + | Address | [address] | | | [place] [address] | + + + | Home Phone [...] + | [employer] | ECON | [phone] | | | | | Unknown | | + + + + + Care Team Providers + +------+ + | Care Fabric Worker Supervisor Name | Role | Phone | [...] | hypertension (HCC) | | | | [place], | | | | | | [place] [address] | | | | | | [phone] | | | +--------+ + + + [...]
--- OUTSIDE RECORDS SUMMARY | ~2020-07-30 | XMS | Encounter Summary ---
Demographics + + + | Address | [address] | | | [place] [address] | + + + | Home Phone [...] Organization | [facility] | | | and [place] | + + + | Address | Unknown | + + + | Phone | Unavailable | + + + Support + + + + + | Name | Relationship | Address | Phone | + + + + + | [employer] | ECON | [id number] | | | | | Unknown | | + + + + + Care Team Providers + +------+ + | Care Car Driver Name | Role | Phone | [...] RN | apnea | | | | [place], | | | | | | [place] [address] | | | | | | [phone] | | | +--------+ + + + [...]
--- OUTSIDE RECORDS SUMMARY | ~2020-07-30 | XMS | Encounter Summary ---
Demographics + + + | Address | [address] | | | [place] [address] | + + + | Home Phone [...] + | [employer] | ECON | [id number] | | | | | Unknown | | + + + + + Care Team Providers + +------+ + | Care Desktop Architect Name | Role | Phone | [...] | | ABDIRASHID BROTHERS | [facility] [place] | | | | | [place] | [address] | | | | | [address] | [phone] | | | | | [phone] | | | +--------+ + + + [...]
--- OUTSIDE RECORDS SUMMARY | ~2020-07-30 | XMS | Encounter Summary ---
Demographics + + + | Address | [address] | | | [place] [address] | + + + | Home Phone [...] + | [employer] | ECON | [phone] | | | | | Unknown | | + + + + + Care Team Providers + +------+ + | Care Leather Cleaner Name | Role | Phone | [...] | | | | | | [place] [address] | | | | | | [phone] | | | +--------+ + + + [...] 2:09 PM PDTNotified caregiver Buck daniel at [facility] (patient's home number) that Dr Lainez reviewed 07/09/15 labs a nd test is negative but we need to continue monthly checks for documentation for m edication and also that chest x ray is stable that was done 07/10/15 at [facility] signed by Jia Noriega RN at 07/30/2015 2:11 PM PDTdocumented in this encounte r Plan of Treatment Not on filedocumented as of this encounter Visit Diagnoses Not on filedocumented in this encounter"
--- OUTSIDE RECORDS SUMMARY | ~2020-07-30 | XMS | Encounter Summary ---
Demographics + + + | Address | [address] | | | [place] [address] | + + + | Home Phone [...] + | [employer] | ECON | [phone] | | | | | Unknown | | + + + + + Care Team Providers + +------+ + | Care Mild Disabilities Teacher Name | Role | Phone | [...] RN | obstructive | | | | [place], | | pulmonary disease) | | | | [place] [address] | | ([facility]) | | | | [phone] | | | +--------+ + + + [...]
--- OUTSIDE RECORDS SUMMARY | ~2020-07-30 | XMS | Encounter Summary ---
Demographics + + + | Address | [address] | | | [place] [address] | + + + | Home Phone [...] + | [employer] | ECON | [phone] | | | | | Unknown | | + + + + + Care Team Providers + +------+ + | Care Auto Appraiser Name | Role | Phone | + +------+ + | Yuni Shrestha | PCP | | + +------+ + Encounter Details +--------+ + + + + | Date | Type | Department | Care Team | Description | +--------+ + + + + | 06/12/ | Hospital | [facility] | [place]enstein, | Exercise hypoxemia | | 2015 | Encounter | MED CTR PULMONARY | Vera Farrar MD | ([facility]); Primary | | | | FUNCTION [address] | | pulmonary | | | | [place], | | hypertension | | | | [place] [address] | | | | | | [phone] | | | +--------+ + + + [...] | 0 | 12/11/19 | | | ([employer]) 0.65% nasal | package instructions | Bottle [...] | | | ([facility]) | | | | | | + [...] + + + +---------+ + + | [place] Starch POWD | by Does not apply [...] + + +---------+ + + | [place]-3 Fatty | Take by mouth. | | [...] FUNCTION TESTING | | 9:41 AM | ([facility]) Primary | | | ORDERS | | [...]
--- OUTSIDE RECORDS SUMMARY | ~2020-07-30 | XMS | Encounter Summary ---
Demographics + + + | Address | [address] | | | [place] [address] | + + + | Home Phone [...] + | [employer] | ECON | [phone] | | | | | Unknown | | + + + + + Care Team Providers + +------+ + | Care Process Project Engineer Name | Role | Phone [...] + + | 07/26/ | [facility] | [facility] | Jacky Calderon PA | Primary central | | 2017 | Visit | SLEEP DISORDER [address] | [address] | sleep apnea (Primary | | | | [address] [place] | [place], [place] | Dx) | | | | [place] [address] | [address] | | | | | [phone] | | | +--------+---------+ + + + [...] AM ANDREYGo to [facility] in [facility] to get a Respironics AmaraView full face mask. Change to [facility] in [place], if not able to get this mask at [facility] in [facility] n. Wear BiPAP 100% of the time asleep. documented in this encounter Progress Notes Jacky Calderon PA - 07/26/2017 10:30 AM PDT Subjective: Patient ID: Margarita Rowley is a 51 y.o. female. HPI last office visit: 07/23/2016 date of polysomnography: 03/13/2013 at [facility] AHI: 64.2 O2%: n/a Machine type: Respironics BiPAP Auto Mask type: ResMed Quattro FX full face mask DME: [facility] in [place] pressure: 16/5 cm with backup rate of [...] She may be interested in us ing [facility] in [place] for her supplies. She says she has had some difficulty with gettin g supplies from [facility] in [place]. She is also napping during the day [...] Assessment: Problem #1: PRIMARY CENTRAL SLEEP APNEA ([id number]-P62.31) This is controlled with BiPAP and oxygen [...]
--- OUTSIDE RECORDS SUMMARY | ~2020-07-30 | XMS | Encounter Summary ---
Demographics + + + | Address | [address] | | | [place] [address] | + + + | Home Phone [...] + | [employer] | ECON | [phone] | | | | | Unknown | | + + + + + Care Team Providers + +------+ + | Care County Agricultural Agent Name | Role | Phone | [...] | RN | | | | | [place], | | | | | | [place] [address] | | | | | | [phone] | | | +--------+ + + + [...] RN - 07/23/2013 2:30 PM PDTRemick-nurse from [facility] called to clarify that the O2 with exertion should be increased to 4 l/m given Margarita kasper s COPD. documented in this encounter Plan of Treatment Not on filedocumented as of this encounter Visit Diagnoses Not on filedocumented in this encounter"
--- OUTSIDE RECORDS SUMMARY | ~2020-07-30 | XMS | Encounter Summary ---
Demographics + + + | Address | [address] | | | [place] [address] | + + + | Home Phone [...] + | [employer] | ECON | [phone] | | | | | Unknown | | + + + + + Care Team Providers + +------+ + | Care Mineralogy Professor Name | Role | Phone | + +------+ + | Yuni Shrestha | PCP | | + +------+ + Encounter Details +--------+ + + + + | Date | Type | Department | Care Team | Description | +--------+ + + + + | 11/07/ | Hospital | [facility] | [place], | Primary pulmonary | | 2016 | Encounter | MED CTR PULMONARY | Vera Farrar MD | hypertension; | | | | FUNCTION [address] | | Hypoxemia | | | | [place], | | | | | | [place] [address] | | | | | | [phone] | | | +--------+ + + + [...] | | | | | ([facility]) | | | | | | [...] + + + +---------+ + + | [place] Starch POWD | by Does not apply [...] + + + +---------+ + + | [place]-3 Fatty | Take by mouth. | | [...]
--- OUTSIDE RECORDS SUMMARY | ~2020-07-30 | XMS | Encounter Summary ---
Demographics + + + | Address | [address] | | | [place] [address] | + + + | Home Phone [...] + | [employer] | ECON | [phone] | | | | | Unknown | | + + + + + Care Team Providers + +------+ + | Care Home Administrator Name | Role | Phone | [...] | | | | | | [place] [address] | | | | | | [phone] | | | +--------+ + + + [...] St | [place] | | | [facility] | | [address], [facility] | | | - LABORATORY [...] ST. | [address] | [place] | | | [facility] | | [address], [facility] | | | - LABORATORY | | | | + + + + + documented in this encounter Visit Diagnoses Not on filedocumented in this encounter"
--- OUTSIDE RECORDS SUMMARY | ~2020-07-30 | XMS | Encounter Summary ---
Demographics + + + | Address | [address] | | | [place] [address] | + + + | Home Phone [...] + | [employer] | ECON | [phone] | | | | | Unknown | | + + + + + Care Team Providers + +------+ + | Care Chemist Food Name | Role | Phone | + +------+ + | Shanice Huang MD | PCP | | + +------+ + Encounter Details +--------+ + + + + | Date | Type | Department | Care Team | Description | +--------+ + + + + | 07/23/ | Hospital | [facility] | Helen Astudillo | Primary pulmonary | | 2020 | Encounter | MED CTR PULMONARY | MD Vikash [address] | hypertension (HCC); | | | | FUNCTION [address] | [address] [place] | Chronic obstructive | | | | [place], | [place] [address] | pulmonary disease, | | | | [place] [address] | [phone] | unspecified COPD | | | | [phone] | | type (HCC) | +--------+ + [...] + + +---------+ + + | [place] [id number] | as needed | | 0 | [...] Astudillo MD, MD 07/23/2020 3:05 PM PDT [facility] at 0 [...] MD, | | | [facility]2020 [facility] | | | | | |EXERCISE OXIMETRY: [...] 3:05 PM | | |PDT | | |[facility] | | + + + documented in this encounter Visit Diagnoses + + | Diagnosis | + + | Primary pulmonary hypertension (HCC) Primary pulmonary hypertension | + + | Chronic obstructive pulmonary disease, unspecified COPD type (HCC) | + + documented in this encounter"
--- OUTSIDE RECORDS SUMMARY | ~2020-07-30 | XMS | Encounter Summary ---
Demographics + + + | Address | [address] | | | [place] [address] | + + + | Home Phone [...] + | [employer] | ECON | [phone] | | | | | Unknown | | + + + + + Care Team Providers + +------+ + | Care Piano Mechanic Name | Role | Phone | [...] RN | apnea | | | | [place], | | | | | | [place] [address] | | | | | | [phone] | | | +--------+ + + + [...]
--- OUTSIDE RECORDS SUMMARY | ~2020-07-30 | XMS | Encounter Summary ---
Demographics + + + | Address | [address] | | | [place] [address] | + + + | Home Phone [...] + | [employer] | ECON | [phone] | | | | | Unknown | | + + + + + Care Team Providers + +------+ + | Care Ring Packer Name | Role | Phone | [...] | | | | ABDIRASHID BROTHERS | [place] [address] | | | | | [place] | [phone] | | | | | [address] | | | | | | [phone] | Shady Mcdonald | | | | | | MD [address] | | | | | | [place], [place] | | | | | | [address] | | | | | | [phone] | | | | | | | [...]
--- OUTSIDE RECORDS SUMMARY | ~2020-07-30 | XMS | Encounter Summary ---
Demographics + + + | Address | [address] | | | [place] [address] | + + + | Home Phone [...] + | [employer] | ECON | [phone] | | | | | Unknown | [...] + | 07/09/ | Telephone | [facility] | Roberto Salguero | Other (Appointment | | 2012 | | [address] | MD Ananth [address] | Cancellation) | | | | [place], | [address] [place] | | | | | [place] [address] | [place] [address] | | | | | [phone] | [phone] | | | | | | | [...]
--- OUTSIDE RECORDS SUMMARY | ~2020-07-30 | XMS | Encounter Summary ---
Demographics + + + | Address | [address] | | | [place] [address] | + + + | Home Phone [...] Providers + +------+ + | Care Ice Grinder Name | Role | Phone | [...] | | | | | Floor | [place], [place] | | | | | | [place], [place] | [address] | | | | | | [address] | Phone: | | | | | | Phone: | [phone] | | | | | | [phone] | Fax: | | | | | | Fax: | [phone] | | | | | | [phone] | | +--------+--------+ + + + + Encounter Details +--------+ + + + + | Date | Type | Department | Care Team | Description | +--------+ + + + + | 03/27/ | Outside | Neurophysiology | Mustapha Vidal, | | | 2012 | Referral | EEG at [facility] [address] | MD [place] | | | | Order | [facility] | [facility] [address] | | | | | [employer] [place] [employer] | KATI AVJose Carlos | | | | | [place], [address]th Floor | [place] [address] | | | | | [place], [place] | [phone] | | | | | [address] | | | | | | [phone] | | | +--------+ + + + [...] 1965 Medical | | | Record Number: [id number] Date of Test: 03/27/2013 Place of | | | [facility] Department: EEG [facility] - [id number] | | | ROUTINE EEG - [facility] Reason for Exam: Evaluate for [...] | Clinical Events: No pushbutton events or automation control technician notes of unusual | | [...] Laws M.D. | | | Suggested CPT: 15123 - EEG Routine Awake & Asleep Suggested Dx: | | | 780.39-Convulsions | | + + + documented in this encounter Visit Diagnoses Not on filedocumented in this encounter"
--- OUTSIDE RECORDS SUMMARY | ~2020-07-30 | XMS | Encounter Summary ---
Demographics + + + | Address | [address] | | | [place] [address] | + + + | Home Phone [...] + | [employer] | ECON | [id number] | | | | | Unknown | | + + + + + Care Team Providers + +------+ + | Care Manager Software Development Name | Role | Phone | [...] + + | 07/23/ | Office | [facility] | Jacky Calderon PA | Primary central | | 2016 | Visit | SLEEP DISORDER [address] | [address] | sleep apnea (Primary | | | | [address] [place] | [place], [place] | Dx) | | | | [place] [address] | [address] | | | | | [phone] | | | +--------+---------+ + + + [...] was: 05/22/2015 date of polysomnography: 03/13/2013 at [facility] AHI: 64.2 O2%: n/a Machine type: Respironics BiPAP Auto with ResMed Quattro FX full face mask obtained from: [employer] in [place] pressure: 16/5 cm with backup rate [...] Assessment: Problem #1: PRIMARY CENTRAL SLEEP APNEA (CPY06-O56.31) This is controlled with BiPAP and oxygen at 5 L/min. Her compliance is going very well. Plan: 1. She is to continue with BiPAP indefinitely. 2. She is to touch base with her medical supplier twice per year to ensure that her equipm ent is satisfactory. I will follow up with her in 1 year, sooner prn. Fifteen minutes were spent ekeg-ww-bqmy, with the majority of time spent in counseling. Jacky Calderon PA-C cc: XANDER Garvin documented in this enco unter Plan of Treatment Not on filedocumented as of this encounter Visit Diagnoses + + | Diagnosis | + + | Primary central sleep apnea - Primary | + + documented in this encounter"
--- OUTSIDE RECORDS SUMMARY | ~2020-07-30 | XMS | Encounter Summary ---
Demographics + + + | Address | [address] | | | [place] [address] | + + + | Home Phone [...] Located Within [facility] | | | and [place] | + + + | Address | Unknown | + + + | Phone | Unavailable | + + + Support + + + + + | Name | Relationship | Address | Phone | + + + + + | [employer] | ECON | [id number] | | | | | Unknown | | + + + + + Care Team Providers + +------+ + | Care Box Toe Buffer Name | Role | Phone | [...] | | | Pulmonology | airway | [address] | MD | | | | | obstruction, | IRMA | | | | | | not | [address] | | | | | | elsewhere | [place], | | | | | | classified | [place] [address] | | | | | | Obstructive | Phone: | | | | | | sleep apnea | [phone] | | | | | | (adult) | Fax: | | | | | | (pediatric) | [phone] | | | | | | Procedures [...] MD | hypertension | | | | [place], | | (Primary Dx); COPD | | | | [place] [address] | | (chronic obstructive | | | | [phone] | | pulmonary disease); | | | [...] appoin tment to see Dr. Rivera in [place] at [facility]. I will get updated labs from Gela and if we need to add anything, I will send orders to [facility]. Okay to liberalize fluid intake [...] goes. You can find these inexpensively at [facility]. Turn the humidity up on your CPAP to 5. Ask the [facility] for a humidifier for the oxygen concentrator if you don't have one. [place] nasal saline spray in your nose several [...] Years of Education: N/A Occupational History Disabled. [employer] Social History Main Topics Smoking status: Former Smoker -- 1.00 packs/day for 20 years Types: Cigarettes Quit date: 12/10/2014 Smokeless tobacco: None Comment: restarted in August 2014, quit again 12/10/14 Alcohol Use: Yes Comment: history of abuse Drug Use: Yes Special: Cocaine Comment: history of cocaine use Sexual Activity: None Other Topics Concern None Social History Narrative Lives at [facility]. Allergies: Allergies Allergen Reactions Erythromycin [...] TABS Take 2,000 Units by mouth Daily. [place] Starch POWD by Does not apply route [...] mg onto the skin every 24 hours. [place]-3 Fatty Acids (SEA-OMEGA 30) 1200 MG CAPS [...] exertion only during the daytime. Rechecked at [facility] t visit. They are not having issues with low saturations. 6. Sleep related hypoxemia - On oxygen 5L bled in to her BiPAP machine. Plan 1. Follow up appointment to see Dr. Rivera in [place] at [facility]. 2. I will get updated labs from [facility] and if we need to add anything, I will send orders to [facility]. 3. Okay to liberalize fluid intake to [...] if they don't h ave one. 8. [place] nasal saline spray in her nose several [...] made to ensure accuracy; however, inadvertent computerized hazard mitigation officer errors may be pre sent. documented [...]
--- OUTSIDE RECORDS SUMMARY | ~2020-07-30 | XMS | Encounter Summary ---
Demographics + + + | Address | [address] | | | [place] [address] | + + + | Home Phone [...] Providers + +------+ + | Care Regulatory Submissions Specialist Name | Role | Phone | + +------+ + | Yuni Shrestha | PCP | | + +------+ + Encounter Details +--------+ + + + + | Date | Type | Department | Care Team | Description | +--------+ + + + + | 05/17/ | Wellness Spa Manager | Pulmonary & | Oneal Morejon MD | | | 2012 | | Critical Care | [address] | | | | | Medicine at | [facility], | | | | | [facility] | [place] [address] | | | | | [address] | [phone] | | | | | [address] Phys[facility] | | | | | | [place], 3rd Floor | | | | | | [place], [place] | | | | | | [address] | | | | | | [phone] | | | +--------+ + + + [...]
--- OUTSIDE RECORDS SUMMARY | ~2020-07-30 | XMS | Encounter Summary ---
Demographics + + + | Address | [address] | | | [place] [address] | + + + | Home Phone [...] + | [employer] | ECON | [phone] | | | | | Unknown | | + + + + + Care Team Providers + +------+ + | Care Media Production Support Manager Name | Role | Phone | [...] + + | 05/21/ | Office | [facility] | Jacky Calderon PA | Primary central | | 2014 | Visit | SLEEP DISORDER [address] | [address] | sleep apnea (Primary | | | | [address] [place] | [place] | Dx) | | | | [place] [address] | [address] | | | | | [phone] | | | +--------+---------+ + + + [...] was: 01/23/2014 date of polysomnography: 03/13/2013 at [facility] AHI: 64.2 O2%: n/a Machine type: Respironics BiPAP Auto with ResMed Quattro FX full face mask obtained from: [facility] pressure: 16/5 cm with backup rate [...] year, sooner prn. Fifteen minutes were spent dlgx-xx-xhst, with the majority of time spent in counseling. Jacky Calderon PA-C cc: BRUCE Beal MD documented in this enco unter Miscellaneous Notes Miscellaneous - ONLNIK LINDER - 05/21/2014 12:00 AM PDT documented in this encounter Plan of Treatment Not on filedocumented as of this encounter Visit Diagnoses + + | Diagnosis | + + | Primary central sleep apnea - Primary | + + documented in this encounter"
--- OUTSIDE RECORDS SUMMARY | ~2020-07-30 | XMS | Encounter Summary ---
Demographics + + + | Address | [address] | | | [place] [address] | + + + | Home Phone [...] + | [employer] | ECON | [phone] | | | | | Unknown | | + + + + + Care Team Providers + +------+ + | Care Insulation Manager Name | Role | Phone | [...] | Primary | [place]enstein, | [address] | | | | | pulmonary | Vera B, | [place], | | | | | hypertension | MD [address] | [place] | | | | | ([facility]) | [address] | [address] | | | | | Procedures | [place], | Phone: | | | | | ECHO | [place] [address] | [phone] | | | | | Complete | | Fax: | | | | | APPT | | [phone] | | | | | 03/18/14. | [...] | 12/17/ | Office | [facility] | Fatou, | Primary pulmonary | | 2014 | Visit | PULMONARY [address] | Vera Farrar MD | hypertension | | | | [address] [place], | | (Primary Dx); [place] | | | | [place] [address] | | (obstructive sleep | | | | [phone] | | apnea); COPD | | | [...] MD [place] Bernardo Pulmonary and Critical Care [facility] [address] [place], [address] HPI Margarita Rowley is a 48 y.o. [...] Years of Education: N/A Occupational History Disabled. [employer] [place] Social History Main Topics Smoking status: Former Smoker -- 1.0 packs/day for 20 years Types: Cigarettes Quit date: 05/14/2013 Smokeless tobacco: None Alcohol Use: Yes Comment: history of abuse Drug Use: Yes Special: Cocaine Comment: history of cocaine use Sexually Active: None Other Topics Concern None Social History Narrative Lives at [facility]. Allergies: Allergies Allergen Reactions Erythromycin Metronidazole Penicillins [...] TABS Take 2,000 Units by mouth Daily. [place] Starch POWD by Does not apply route [...] mg by mouth 2 times da jammie. 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 documented in t his encounter Plan of Treatment Not on filedocumented as of this encounter Results ECHO Complete (03/12/2014 8:36 AM PDT) + + | Specimen | + + | | + + + + + | Narrative | Performed At | + + + | [facility] ECHOCARDIOGRAM REPORT | [facility] | | STUDY DATE: 03/12/2014 PATIENT NAME: Margarita Rowley : | [facility] | | 1965 PCP: [facility] Tr[facility] | | HISTORY/DIAGNOSIS: PULM HTN [...] PhD FACC 03/12/2014 8:38 | | | Stamp Pad Finisher: Hung Caro, TIRSO, RVT, RDMS | | + + + + + | Procedure Note | + + | Roberto Salguero MD - 03/12/2014 6:05 PM [facility] | | CENTERECHOCARDIOGRAM REPORTSTUDY DATE: 03/12/2014PATIENT NAME: Margarita MooreB: | | 1965MRN: [id number]: Gela DayINICAL HISTORY/DIAGNOSIS: PULM HTNA | | [...] | mmHgLA volume: 34 mLLA index: 18 mL/p8Czztuf Inflow DT: 290 msIVRT: 117 msValsalva: | | YES, TO NO EFFECTPWDTI S wave: 12.0 cm/sPWDTI E wave: 15.5 cm/sPWDTI A wave: 24.1 | | cm/sE/A Ratio: 0.643E/E Ratio: Signed by: Artie Salguero MD PhD FACC 03/12/2014 | | 8:38 Stamp Pad Finisher: Hung Caro, RDCS, RVT, RDMS | |Mitral [...] 03/12/2014 8:38 | | | | | |Stamp Pad Finisher: Hung Caro, JUANITOCS, RVT, RDMS | + + + + + + + | Performing | Address | City/State/Zipcode | Phone Number | | Organization | | | | + + + + + | [address] | [address] | [place], [place] | [phone] | | [facility] | | [address] | | | - IMAGING | | [...]
--- OUTSIDE RECORDS SUMMARY | ~2020-07-30 | XMS | Encounter Summary ---
Demographics + + + | Address | [address] | | | [place] [address] | + + + | Home Phone [...] + | [employer] | ECON | [phone] | | | | | Unknown | | + + + + + Care Team Providers + +------+ + | Care Learning Operations Specialist Name | Role | Phone | [...] | | | | | | | [place] XCAPSL | | | | | | [...] + + | 05/08/ | Hospital | [facility] | Angel Garcia | | | 2019 | Encounter | MED CTR OR INTRA OP | MD [address] | | | | | [address] | [place] | | | | | [place] | [place] [address] | | | | | [address] | [phone] | | | | | [phone] | | | +--------+ + + + [...] Tata last reviewed this educational content on 08/17/201619992416-5381 [employer]. [address] [place] [address], [place] [phone]. All righ ts reserved. 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
--- OUTSIDE RECORDS SUMMARY | ~2020-07-30 | XMS | Encounter Summary ---
Demographics + + + | Address | [address] | | | [place] [address] | + + + | Home Phone [...] + | [employer] | ECON | [id number] | | | | | Unknown | | + + + + + Care Team Providers + +------+ + | Care Natural Fabricator Name | Role | Phone | + [...] | | | | ABDIRASHID BROTHERS | [facility] [place] | | | | | [place] | [address] | | | | | [address] | [phone] | | | | | [phone] | | | +--------+ + + + [...]
--- OUTSIDE RECORDS SUMMARY | ~2020-07-30 | XMS | Encounter Summary ---
Demographics + + + | Address | [address] | | | [place] [address] | + + + | Home Phone [...] + | [employer] | ECON | [phone] | | | | | Unknown | | + + + + + Care Team Providers + +------+ + | Care Correspondence Dictator Name | Role | Phone | + [...] | | | | | | [place] [address] | | | | | | [phone] | | | +--------+ + + + [...]
--- OUTSIDE RECORDS SUMMARY | ~2020-07-30 | XMS | Encounter Summary ---
Demographics + + + | Address | [address] | | | [place] [address] | + + + | Home Phone [...] + | [employer] | ECON | [id number] | | | | | Unknown | | + + + + + Care Team Providers + +------+ + | Care Small Animal Caretaker Name | Role | Phone | + [...] + + | 08/13/ | Telephone | [facility] | Tarah Nino, | Other (BIPAP order) | | 2012 | | PULMONARY [address] | RN | | | | | [place], | | | | | | [place] [address] | | | | | | [phone] | | | +--------+ + + + [...]
--- OUTSIDE RECORDS SUMMARY | ~2020-07-30 | XMS | Encounter Summary ---
Demographics + + + | Address | [address] | | | [place] [address] | + + + | Home Phone [...] + | [employer] | ECON | [phone] | | | | | Unknown | | + + + + + Care Team Providers + +------+ + | Care Tailer Out Name | Role | Phone | + [...] | apnea; Hypoxemia | | | | [place], | | | | | | [place] [address] | | | | | | [phone] | | | +--------+ + + + [...]
--- OUTSIDE RECORDS SUMMARY | ~2020-07-30 | XMS | Encounter Summary ---
Demographics + + + | Address | [address] | | | [place] [address] | + + + | Home Phone [...] + | [employer] | ECON | [phone] | | | | | Unknown | | + + + + + Care Team Providers + +------+ + | Care Beach Lifeguard Name | Role | Phone | + [...] | | | | ABDIRASHID BROTHERS | [facility] [place] | | | | | [place] | [address] | | | | | [address] | [phone] | | | | | [phone] | | | +--------+ + + + [...]
--- OUTSIDE RECORDS SUMMARY | ~2020-07-30 | XMS | Encounter Summary ---
Demographics + + + | Address | [address] | | | [place] [address] | + + + | Home Phone [...] + + | Author | [facility] | + + + | Organization | [facility] | + + + | Address | Unknown | + + + | Phone | Unavailable | + + + Support + + +---------+ + | Name | Relationship | Address | Phone | + + +---------+ + | Lidia Thibodeaux | E[place] | Unknown | | + + +---------+ + Care Team Providers + +------+ + | Care Hat Finishing Materials Preparer Name | Role | Phone | + +------+ + | Gela Trimble NP | PCP | | + +------+ + Encounter Details +--------+ + + + + | Date | Type | Department | Care Team | Description | +--------+ + + + + | 05/04/ | Results | Stress | Other, Faculty | | | 2012 | Only | Echocardiography | [phone] | | | | | [address] | | | | | | Loop Mailcode: | | | | | | [id number] Outpatient | | | | | | Clinic Building | | | | | | [place], [place] | | | | | | [address] | | | | | | [phone] | | | +--------+ + + + [...] + + | SARAH QUIROZT OF | [address] | [place], [place] | | | CARDIOLOGY | [address] | [address] | | + + + + + documented in this encounter Visit Diagnoses Not on filedocumented in this encounter"
--- OUTSIDE RECORDS SUMMARY | ~2020-07-30 | XMS | Encounter Summary ---
Demographics + + + | Address | [address] | | | [place] [address] | + + + | Home Phone [...] + | [employer] | ECON | [phone] | | | | | Unknown | | + + + + + Care Team Providers + +------+ + | Care Certified Respiratory Therapist Name | Role | Phone | [...] | Primary | Offenstein, | [address] | | | | | pulmonary | Vera B, | [place], | | | | | hypertension | MD [address] | [place] | | | | | ([facility]) | [address] | [address] | | | | | Procedures | [place], | Phone: | | | | | ECHO | [place] [address] | [phone] | | | | | Complete [place] | | Fax: | | | | | ECHO HEART | | [phone] | | | | | XTHORACIC,[place] | | | | | | | [address] | | | | | | | DOPPLER [place] [...] | Primary | Offenstein, | [address] | | | | | pulmonary | Vera B, | [place], | | | | | hypertension | MD [address] | [place] | | | | | (HCC) | [address] | [address] | | | | | Procedures | [place], | Phone: | | | | | ECHO | [place] [address] | [phone] | | | | | Complete [place] | | Fax: | | | | | ECHO HEART | | [phone] | | | | | XTHORACIC,[place] | | | | | | | [address] | | | | | | | DOPPLER [place] [...] + + | 03/26/ | Hospital | [facility] | Sahara[place], | Primary pulmonary | | 2014 | Encounter | MED CTR ECHO [address] | Vera Farrar MD | hypertension | | | | [place] | [address] [place], | | | | | [place] [address] | Technologist | | | | | [phone] | | | +--------+ + + + [...] + + + +---------+ + + | [place] Starch POWD | by Does not apply [...] + + + +---------+ + + | [place]-3 Fatty | Take by mouth. | | [...] Performed At | + + + | [facility] ECHOCARDIOGRAM REPORT | [place] | | STUDY DATE: 03/26/2015 PATIENT NAME: Margarita Rowley : | [facility] | | 1965 PCP: Physician No CLINICAL | [facility] | | HISTORY/DIAGNOSIS: Pulmonary HTN A [...] Signed by: Derick Strong, | | | [facility] 03/26/2015 13:52 Cutter Grinder Operator: Maciel Silva, | | | RDCS, RDMS, RVT | | + + + + + + + + | Performing | Address | City/State/Zipcode | Phone Number | | Organization | | | | + + + + + | [facility] | [address] | [place] | [phone] | | [facility] | | [address] | | | - IMAGING | | [...]
--- OUTSIDE RECORDS SUMMARY | ~2020-07-30 | XMS | Encounter Summary ---
Demographics + + + | Address | [address] | | | [place] [address] | + + + | Home Phone [...] + | [employer] | ECON | [phone] | | | | | Unknown | | + + + + + Care Team Providers + +------+ + | Care Supervisor Customer Complaint Service Name | Role | Phone | + [...] | hypertension (HCC); | | | | [place], | | High risk medication | | | | [place] [address] | | use | | | | [phone] | | | +--------+ + + + [...]
--- OUTSIDE RECORDS SUMMARY | ~2020-07-30 | XMS | Encounter Summary ---
Demographics + + + | Address | [address] | | | [place] [address] | + + + | Home Phone [...] + | [employer] | ECON | [phone] | | | | | Unknown | | + + + + + Care Team Providers + +------+ + | Care Paper Cutter Operator Name | Role | Phone | [...] [place], [place] | | | | | [address] | [address] | | | | | [phone] | [phone] | | | | | | | [...]
[~2020-07-30 09:09] MED LIST changes: +DOXYCYCLINE HY100 MG PO
[2020-07-30] MEDS ORDERED: TROSPIUM CHLORI60 MG PO (09:42)
[2020-07-30] MEDS ORDERED: UPTRAVI800 MCG PO (09:43)
[2020-07-30] MEDS ORDERED: UPTRAVI 1600 MCG PO (09:44)
--- NOTE | 2020-07-30 14:32 | NUR ---
PT BROUGHT FROM ED TO CCU AND ADMITTED AT 1300. PT AWAKE AND ALERT. PT CURRENTLY EATING LUNCH. OXYGEN WAS CHANGED TO 6L NC AND PT CURRENTLY SATING AT 88-90% WHILE EATING. IV ANTIBIOTIC AND FLUIDS INFUSING ORDERED. MRSA SWAB DONE. PT BED IN LOWEST POSITION, CALL LIGHT WITHIN REACH. WILL CONTINUE TO MONITOR THE PT. PT REPORTS NO FURTHER NEEDS AT THIS TIME.
--- NOTE | 2020-07-30 14:40 | NUR ---
RT IN ROOM TO ASSESS PT AND PUT PT ON VAPOTHERM. VAPOTHERM SET TO 25LPM AT 65% O2. PT SPO2 AT 96%. PT LEFT IN SEMIFOWLERS TO SLEEP. IV FLUIDS AND ABX INFUSING ORDERED. CALL LIGHT WITHIN REACH, BED IN LOWEST POSITION, WILL CONTINUE TO MONITOR THE PT.
--- NOTE | 2020-07-30 15:47 | NUR ---
Medications reconciled using pharmacy records and facility [facility]. Patient will take her own tadalafil and her own Uptravi
--- NOTE | 2020-07-30 16:54 | NUR ---
PT LAYING IN BED. BLOOD PRESSURE CUFF READJUSTED AND NEW BP TAKEN. BP OF 94/54 (67) WAS OBTAINED. PT STATES SHE HAS NO PAIN AT THE MOMENT. PRN NAUSEA MEDICATION ADMINISTERED IV PT STATED SHE WAS FEELING NAUSEAUS. PT STATES FINGERS FEEL " IF THEY HAVE WATER" OR ARE SWOLLEN. PT STATES THEY ALSO FEEL A BIT NUMB AND TINGLING. PT SITTING UP HIGH FOWLERS, VAPOTHERM ON AND RUNNING AT PREVIOUS SETTINGS, IV FLUIDS AND ANTIBIOTICS INFUSING ORDERED. WILL CONTINUE TO MONITOR THE PT. CALL LIGHT WITHIN REACH ON PT BED.
--- NOTE | 2020-07-30 18:13 | NUR ---
PT CALL LIGHT ON. PT WANTED TO BE REPOSITIONED UP IN HER BED. PT AWAKE AND ALERT. PT DINNER ARRIVED, PT CURRENTLY SITTING UP IN BED EATING. LR BOLUS COMPLETE. IV ABX AND CONTINUOUS LR STILL GOING. PT STILL ON VAPOTHERM AT 25LPM AND 65% O2. PT DENIES ANY FURTHER NEEDS AT THIS TIME. PT BED IN LOWEST POSITION, CALL LIGHT WITHIN REACH, WILL CONTINUE TO MONITOR THE PT.
--- NOTE | 2020-07-30 18:37 | NUR ---
PT LAYING IN BED SEMIFOWLERS WITH EYES CLOSED BUT AWAKE. PT INSTRUCTED ON HOW TO USE INCENTIVE SPIROMETER AND HOW OFTEN. IV ABX COMPLETED. ONLY IV LR RUNNING AT 75ML/HR. VAPOTHERM STILL IN USE AT THE PREVIOUS SETTING 25LPM, 65% O2. PT REPORTS NO FURTHER NEEDS ASIDE FROM DESSERT THAT WAS ORDERED. PT BED IN LOWEST POSITION, CALL LIGHT WITHIN REACH, WILL CONTINUE TO MONITOR THE PT.
--- NOTE | 2020-07-30 19:30 | NUR ---
REPORT RECEIVED FROM RENE LOW. PT IS IN BED RESTING WITH EYES CLOSED. VAPOTHERM IN PLACE, 25L/65% SPO2 97% AND RESTING HR 80'S.
--- NOTE | 2020-07-30 19:45 | NUR ---
IN TO DO ASSESSMENT AND HS MEDS. PT HAS NO COMPLAINTS AT THIS TIME- REQUESTS SPRITE AND SNACK. LUNGS ARE CLEAR, DIM IN BASES. IVF INFUSING AT 75ML/HR, URINE OUTPUT QS. PT TOLERATING VAPOTHERM, 25L/65% SPO2 97%.
--- NOTE | 2020-07-30 22:15 | NUR ---
IN TO CHECK ON PT, ABX INFUSION STARTED. VSS.
--- NOTE | 2020-07-30 22:40 | NUR ---
PT CALLED TO REPORT SOME BLOODY SPUTUM, PT REPORTS SHE COUGHED AND SHOWED RAG WITH 3 SMALL BRIGHT RED BLOOD CLOTS APPROX 3CM IN DIAMETER, NO FURTHER SIGNS OF BLOOD ANYWHERE. DR SALAS INFORMED.
--- NOTE | 2020-07-31 02:00 | NUR ---
PT HAS BEEN RESTING WELL, RESP EVEN UNLABORED MAINTAINING SATS IN MID NINETIES ON VAPOTHERM 25L/65%.
--- NOTE | 2020-07-31 03:50 | NUR ---
IN TO DO ASSESSMENT. PT HAS BEEN SLEEPING WELL THE LAST HOUR OR SO. C/O HEADACHE. PRN TYLENOL GIVEN. HR 70'S, AMIN TEMP 101, ORAL TEMP 99.0. SPO2 95% WITH VAPOTHERM AT 25L/65%.
--- NOTE | 2020-07-31 06:00 | NUR ---
IN TO HANG ABX AND DRAW AM LABS. BLOOD DRAWN WITH MULTIPLE ATTEMPTS. PT MOSTLY RESTING THROUGHOUT THIS TIME, ALTHOUGH WILL WAKE UP TO ANSWER QUESTIONS. STATES HEADACHE IS BETTER BUT NOT GONE COMPLETELY. SOMEWHAT DROWSY AND LETHARGIC THIS MORNING.
--- NOTE | 2020-07-31 08:12 | NUR ---
PT IS AWAKE AND ALERT X4. PT DENIES SOB, CHEST PAIN, AND NAUSEA. PT REPORTS SHE IS HUNGRY FOR BREAKFAST. IV SITES ARE INTACT, NO REDNESS OR SWELLING NOTED, FLUIDS AND FLUSHES INFUSE EASILY.
--- NOTE | 2020-07-31 08:30 | NUR ---
PT REPORTS 2/10 PAIN IN HER LEFT SIDE. REPOSITIONED FOR COMFORT.
--- NOTE | 2020-07-31 08:40 | NUR ---
CAREGIVER IS AT THE BEDSIDE, STATES PT MIGHT HAVE TO HAVE A BM, STATES SHE GETS SIDE PAIN WHEN SHE HAS TO HAVE A BM. CAREGIVER STATES SHE TAKES MILK OF MAG AT HOME.
--- NOTE | 2020-07-31 10:55 | NUR ---
Gave pt. a bed bath, changed her gown, and changed linens.
--- NOTE | 2020-07-31 13:12 | NUR ---
INFORMED BY MARANDA CHILD OF PRECAUTIONS FOR PT. WILL FOLLOW ABLE
--- NOTE | 2020-07-31 13:45 | NUR ---
PT. ATTEMPTED TO HAVE A BOWEL MOVEMENT, NOTHING HAPPENED
--- NOTE | 2020-07-31 16:17 | NUR ---
VAPOTHERM TITRATED DOWN TO 25L/45% DUE TO O2 SAT OF 99%
--- NOTE | 2020-07-31 16:27 | NUR ---
IV SITES ARE INTACT, NO REDNESS OR SWELLING NOTED, PT DENIES PAIN AT EITHER SITE. PT IS DROWSY, BUT COOPERATIVE AND ORIENTED WHEN STIMULATED.
--- NOTE | 2020-07-31 18:45 | NUR ---
VAPOTHERM TITRATED UP TO 30L/50% FOR DESAT TO MID 80%
--- NOTE | 2020-07-31 19:05 | NUR ---
VAPOTHERM TITRATED TO 25L/65%FIO2, PT ALSO SALINE LOCKED PER MD AT BEDSIDE. PT REPORTS FEELING TIRED.
--- NOTE | 2020-07-31 19:41 | NUR ---
REPORT RECIEVED FROM CCU RN, CARE OF PATIENT ASSUMED AT THIS TIME. PT IN BED WATCHING TELEVISION. IV ABX INFUSING. CALL LIGHT WITHIN REACH.
--- NOTE | 2020-07-31 20:30 | NUR ---
IN ROOM TO COMPLETE ASSESSMENT AND FOR MEDICATION ADMINISTRATION. PT IS ALERT AND ORIENTED X4. OXYGEN SATURATIONS AT 93 PERCENT ON VAPOTHERM 25L AND 65% FIO2. RR= 25. R LOWER LUNG SOUNDS DIMINISHED, ALL OTHER AIR MCCLOUD CLEAR. PT REPORTS MILD NUMBNESS AND TINGLING IN FEET AND SOME RIGHT SIDED MILD ABDOMINAL CRAMPING SHE RATES 3/10 ON THE PAIN SCALE. TRACE LOWER LEG EDEMA NOTED IN BOTH LEGS. AMIN CARE AND PM CARE PERFORMED. PM MEDS GIVEN. ASSISTED PT WITH REPOSITIONING FOR SLEEP. CALL LIGHT WITHIN REACH. NO FURTHER NEEDS AT THIS TIME.
--- NOTE | 2020-07-31 22:06 | NUR ---
IN ROOM FOR MEDICATION ADMINISTRATION. PT ASLEEP IN BED. BREATHING EVEN AND UNLABORED RR=21. SPO2=94 ON 25 L VAPOTHERM. NO FURTHER ASSESSED NEEDS AT THIS TIME.
--- NOTE | 2020-07-31 23:37 | NUR ---
ASSESSMENT COMPLETED AT THIS TIME. PT REMAINS ASLEEP DURING ASSESSMENT, ONLY WAKING WHEN AUSCULATING LUNGS. BREATHING IS EVEN AND UNLABORED RR=20. SPO2 = 96. NO NOTED CHANGES SINCE LAST ASSESSMENT. WILL CONTINUE TO CLOSELY MONITOR.
--- NOTE | 2020-08-01 02:00 | NUR ---
IN ROOM AT THIS TIME FOR MEDICATION ADMINISTATION. PT RESTING WITH EYES CLOSED, BREATHING EVEN AND UNLABORED RR=18. SPO2= 96% ON 25 L VAPOTHERM.
--- NOTE | 2020-08-01 04:20 | NUR ---
ASSESSMENT COMPLETED AT THIS TIME. PT COMPLAINS OF HEADACHE, PRN MEDICATION GIVEN (SEE EMAR). CRACKLES NOTED IN BILATERAL LUNG BASES, WORSE ON THE RIGHT. UPPER AIR FEILDS REMAIN CLEAR. REPOSITIONED PT IN BED, COOL CLOTH APPLIED TO FOREHEAD FOR COMFORT. CALL LIGHT WITHIN REACH. NO FURTHER NEEDS AT THIS TIME.
--- NOTE | 2020-08-01 06:09 | NUR ---
IV ABX STARTED AT THIS TIME. PT ASLEEP. BREATHING EVEN AN UNLABORED RR=18. CALL LIGHT WITHIN REACH. NO FURTHER NEEDS.
--- NOTE | 2020-08-01 07:40 | NUR ---
PT IS SLEEPING SOUNDLY AT THIS TIME, VITALS ARE WNL, NO DISTRESS NOTED.
--- NOTE | 2020-08-01 08:30 | NUR ---
CAREGIVER NESTOR IS HERE FROM [facility] TO SIT WITH PT. NESTOR IS GIVEN PT'S BREAKFAST TRAY TO DELIVER TO PT WHEN SHE GOES INTO ROOM. PT IS AWAKE AND ALERT X4, SITTING UP IN BED EATING BREAKFAST.
--- NOTE | 2020-08-01 09:34 | NUR ---
PT UP TO CHAIR FROM BED WITH STANDBY ASSIST ONLY. PT WILFRED ACTIVITY WELL, DENIES CHEST PAIN, AND SOB. PT HAS CALL LIGHT WITHIN REACH. ALL LINENS ON BED CHANGED. WASHED PT HANDS, FACE AND BACK WITH WARM SOAPY WASHCLOTHS. PT SUPPORTED WITH PILLOWS BEHIND BACK AND NECK FOR COMFORT, LEGS ELEVATED. CALL LIGHT IS WITHIN REACH.
--- NOTE | 2020-08-01 12:45 | NUR ---
PT'S CAREGIVER NESTOR HAS LEFT THE ROOM FOR THE DAY, SHE STATES OTHER CAREGIVERS WILL BE IN TO SIT WITH KEO LATER. PT REMAINS UP IN THE CHAIR, VITALS ARE WNL. PT ABLE TO WILFRED 100% OF LUNCH. VITALS ARE WNL.
--- NOTE | 2020-08-01 14:00 | EKG ---
[facility] [address] [place] [address] Signed Normal sinus rhythm Nonspecific T wave abnormality Prolonged QT Abnormal ECG When compared with ECG of 13-JUL-2020 19:43, Left anterior fascicular block is no longer present Nonspecific T wave abnormality has replaced inverted T waves in Anterior leads Nonspecific T wave abnormality, worse in Lateral leads QT has lengthened Confirmed by ASA SALAS DO ([id number]) on 08/01/2020 2:00:09 PM Electronically Signed By: ASA SALAS DO 08/01/20 1400 PATIENT NAME: KEO BARRAZA Electrocardiogram DATE OF : 61 PHYSICIAN: ASA SALAS DO REPORT #: [id number] REPORT IS CONFIDENTIAL AND NOT TO BE RELEASED WITHOUT AUTHORIZATION
--- NOTE | 2020-08-01 14:22 | NUR ---
PT REPORTS SHE IS READY TO GET BACK TO BED NOW. PT ABLE TO STAND AND AMBULATE A FEW STEPS TO BED WITH STANDBY ASSIST ONLY. PT THEN SITS AT BEDSIDE FOR A FEW MINUTES, AND IS ABLE TO GET SELF INTO BED W/O ASSISTANCE. PT REPORTS SLIGHT FATIGUE FROM ACTIVITY, BUT DENIES SOB, AND CHEST PAIN. IV SITES ARE INTACT, NO REDNESS OR SWELLING NOTED, BOTH SITES FLUSH EASILY. CALL LIGHT IS WITHIN REACH. CAREGIVER IS AT THE BEDSIDE.
--- NOTE | 2020-08-01 15:54 | NUR ---
PT LAYING IN BED AT THIS TIME, CAREGIVER IS AT THE BEDSIDE. PT DROWSES OFF AND ON. VITALS ARE WNL.
--- NOTE | 2020-08-01 16:00 | NUR ---
CAREGIVER HAS LEFT THE UNIT.
--- NOTE | 2020-08-01 17:01 | NUR ---
Spoke with Marry from [facility] as pt has vapotherm in use. She states pt lives at [facility] and use 02, shower chair, and at times a walker. She requires full care by aids. Plan for discharge is return to [facility] on discharge.
--- NOTE | 2020-08-01 19:45 | NUR ---
IN TO CHECK ON PT AND DO ASSESSMENT. PT IS RESTING ON VAPOTHERM 30L/55% WITH SPO2 96%. LUNGS CLEAR AND DIM IN BASES, PT IS HAVING AN OCCASIONAL COUGH WITH SOME BROWNISH SPUTUM PRODUCED.
--- NOTE | 2020-08-01 21:33 | NUR ---
PT REPORTS FEELING NAUSEATED AND HAVING A "REALLY BAD HEADACHE" PT VOMITED SMALL AMOUNT OF BRONISH- YELLOW COLORED EMESIS (APPROXIMATELY 20 MLS). PT 02 SATURATIONS DROPPED DOWN TO 82 PERCENT AND SUSTAINED IN THE MID 80S WHILE PT ATTEMPTED TO FOCUS ON DEEP BREATHING. VAPOTHERM FI02 INCREASED TO 65 PERCENT AT THIS TIME. SPO2 NOW AT 92 PERCENT.
--- NOTE | 2020-08-01 22:00 | NUR ---
PTS TEMP IS UP TO 103, RESP RATE IS UP TO HIGH 20'S-30 EVEN AND UNLABORED. LUNGS REMAIN CLEAR/DIM IN BASES. OXYGEN HAS HAD TO BE INCREASED. WILL NOTIFY
--- NOTE | 2020-08-01 22:10 | NUR ---
DR HOPE NOTIFIED OF PTS TEMP UP TO 103.1, URINE OUTPUT 30ML/HR AND O2 UP TO 65% AND UPDATED ON PTS GENERAL CONDITION. ORDER GIVEN FOR INCREASE TYLENOL DOSE AND CONT TO MONITOR CLOSELY.
--- NOTE | 2020-08-01 23:00 | NUR ---
650MG PO TYLENOL GIVEN FOR TEMP 103.1 PER AMIN TEMP PROBE. PT WAS DIAPHORETIC, FACE WIPED DOWN AND COOL CLOTH APPLIED TO FOREHEAD. PT HAVING STRONG TREMORS AT THIS TIME, WITH RESP RATE 28-30 VAPOTHERM REMAINS 30L/65% AND SPO2 95%.
--- NOTE | 2020-08-02 02:07 | NUR ---
IN TO CHECK ON PT, TEMPERATURE HAS COME DOWN, TAKEN ORAL, TEMP PROBE AND AXILLARY. PT WAS SLEEPING BUT WOKE BRIEFLY TO SOUNDS, DENIED NEEDS THEN FELL BACK TO SLEEP. URINE OUTPUT HAS IMPROVED SOME TO 45ML/HR. HR 70'S AND RESP RATE DOWN TO 22 FROM 30'S. CONT TO MONITOR.
--- NOTE | 2020-08-02 03:15 | NUR ---
PT FEELS SHE HAS TO HAVE A BOWEL MOVEMENT, UP TO BSC PT WAS STEADY ON FEET, HR STEADY WHILE UP. SPO2 DOWN TO 88-90% ON VAPOTHERM WITH ACTIVITY. BACK TO BED, NO BM, LINENS CHANGED THEY WERE DAMP FROM PT BEING DIAPHORETIC. PT DENIES NAUSEA AT THIS TIME. ASSESSMENT DONE.
--- NOTE | 2020-08-02 07:30 | NUR ---
REPORT RECEIVED FROM NIGHTSHIFT RN, CARE OF PT. RESUMED AT THIS TIME.
--- NOTE | 2020-08-02 09:56 | NUR ---
PT AWAKE AND ALERT IN BED. IV ABX INFUSING ORDERED. PT STATES SHE ONLY HAS SLIGHT PAIN IN THE INJECTION SITE FOR THE ENOXAPARIN. PT WAS ABLE TO EAT BREAKFAST AND DENIES ANY NAUSEAU. PT DENIES SOB. VAPOTHERM AT 30LPM, 65% O2. SPO2 AT 95%. AXILLARY TEMP WAS 100.0, ORAL 98.9, AMIN 101.2. PT DENIES ANY FURTHER NEEDS AT THIS TIME. BED IN LOWEST POSITION, CALL LIGHT WITHIN REACH, WILL CONTINUE TO MONITOR.
--- NOTE | 2020-08-02 10:00 | NUR ---
DR. HOPE IN TO SEE PT AND UPDATE ON PLAN OF CARE AND PT. CONDITION. IV ABX INFUSING ORDERED, VAPOTHERM AT SAME SETTINGS. WILL CONTINUE TO MONITOR THE PT.
--- NOTE | 2020-08-02 10:08 | NUR ---
PT AWAKE AND ALERT. IV IN RIGHT AC DC'D DUE TO SWELLING ABOVE THE SITE. AMIN CARE DONE PT. STATED THE AREA FELT ITCHY. IV ABX STILL IINFUSING ORDERED, VAPOTHERM ON AT PREVIOUS SETTINGS, SPO2 AT 91%. WILL CONTINUE TO MONITOR THE PT.
--- NOTE | 2020-08-02 10:30 | NUR ---
FI02 DECREASED TO 60% AFTER SP02 HAS BEEN MAINTAINING AROUND 94-95%. PT RESTING. PT TELLS THIS RN WHAT SHE WOULD LIKE FOR LUNCH.
--- NOTE | 2020-08-02 11:30 | NUR ---
PT AWAKE AND ALERT. PT UPDATED ON CLEAR LIQUID DIET. IV FLUIDS INFUSING ORDERED, PT STILL ON 2L NC SATING AT 100%. WILL CONTINUE TO MONITOR PT.
--- NOTE | 2020-08-02 12:18 | NUR ---
PT AWAKE AND ALERT AND ASSISTED TO BEDSIDE CHAIR. PT RECEIVED BED BATH AND BED WAS CHANGED. PT NOW SITTING AT BEDSIDE CHAIR, IV ABX COMPLETED AND NO IVF INFUSING. PT ON VAPOTHERM AT 30 LPM, 60%, SPO2 AT 92%. CALL LIGHT WITHIN REACH, WILL CONTINUE TO MONITOR THE PT.
--- NOTE | 2020-08-02 13:26 | NUR ---
PT USED CALL LIGHT TO INFORM US THAT SHE VOMITTED. THE AMOUNT WAS SCANT. PATIENT STATED SHE WAS STILL FEELING [place], PRN O[place] WAS GIVEN. PT WILL BE HELPED BACK INTO BED SHE STATES SHE FEELS TIRED. PT. STILL ON VAPOTHERM, 30LPM, 60% O2, SPO2 92%. WILL CONTINUE TO MONITOR THE PT.
--- NOTE | 2020-08-02 15:49 | NUR ---
PT LAYING IN BED WATCHING TV WITH NAILER OPERATOR AT BEDSIDE. PT REPORTS NO PAIN AT THIS TIME. IV ABX INFUSING. PT STATES THAT HER "URINE TOURE" AT TIMES. PT AMIN TEMP AT 101.4, SPO2 AT 93% ON VAPOTHERM. VAPOTHERM IS AT 30LPM, 65% O2. PT BED IN LOWEST POSITION, CALL LIGHT WITHIN REACH, WILL CONTINUE TO MONITOR.
--- NOTE | 2020-08-02 18:11 | NUR ---
PT USED CALL LIGHT TO INFORM US THAT SHE NEEDED TO USE BEDSIDED COMMODE. PT WAS ABLE TO AMBULATE WITH ASSISTANCE TO COMMODE BY SHUFFLE WALKING. PT WAS ALSO ABLE TO SHUFFLE BACK ONTO BED WITH HELP WELL. PT STATES SHE HAS NO PAIN AT THE MOMENT. ABX INFUSING ORDERED. VAPOTHERM ON AT 30LPM 60% O2, SPO2 AT 96%. PT CURRENTLY EATING DINNER, CALL LIGHT IS WITHIN REACH. WILL CONTINUE TO MONITOR THE PT.
--- NOTE | 2020-08-02 18:48 | NUR ---
VAPOTHERM FI02 TURNED DOWN TO 55% PT WAS CONTINUING TO HAVE SP02 READINGS IN THE 95-96% RANGE. PT ALSO HELPED TO BRUSH HER TEETH. PT ABLE TO DO THIS INDEPENDENTLY.
--- NOTE | 2020-08-02 19:30 | NUR ---
REPORT RECEIVED FROM RENE LOW. PT IN BED, AWAKE, CAREGIVER IN THE ROOM. VAPOTHERM IN PLACE, 30L/55% AND SPO2 93%. RESTING HR 70'S. TEMP 100.2 PER AMIN PROBE.
--- NOTE | 2020-08-02 20:30 | NUR ---
ASSESSMENT DONE. PT DENIES PAIN OR NEEDS, CAREGIVER LEAVING FOR THE NIGHT.
--- NOTE | 2020-08-02 21:50 | NUR ---
HS MEDS AND ASSESSMENT DONE. PT DENIES PAIN, NAUSEA, SOB.
--- NOTE | 2020-08-02 23:00 | NUR ---
PT AWAKE IN BED, DENIES NEEDS AT THIS TIME, ASSESSMENT DONE.
--- NOTE | 2020-08-03 02:08 | NUR ---
PT C/O BOTH OF HER SHOULDERS HURTING, STATES THIS IS USUAL FOR HER. TYLENOL GIVEN PRN, ALSO TEMP IS STARTING TO INCREASE A BIT, PER AMIN TEMP PROBE 101.8. OXYGEN SATS A BIT LOWER, 89-92%, REPOSITIONED PT UP IN BED AND SATS UP TO 94%, WILL CONT TO MONITOR CLOSELY.
--- NOTE | 2020-08-03 02:30 | NUR ---
PT CALLED TO USE BSC TO HAVE BOWEL MOVEMENT ALTHOUGH SHE WAS UNABLE TO. DID NOT TOLERATE GETTING UP VERY WELL, SHE WAS STEADY ON HER FEET BUT RESP RATE WENT FROM TWENTIES TO FORTIES, AND WHILE ON COMMODE PT REPORTED FEELING "DIZZY AND LIGHTHEADED". ASSISTED BACK TO BED, MOTTLING NOTED TO LOWER EXTREMITIES UP TO TORSO. O2 TITRATED UP TO 100% DURING THIS EPISODE UNTIL PT RECOVERED THEN TURNED BACK TO 65%. PT DENIED PAIN, DID C/O "HARD TO CATCH MY BREATH". PT RECOVERED AFTER APPROX 10 MINUTES. PT REPORTS BILAT SHOULDER PAIN IS NOW GONE, FEVER STARTING TO COME DOWN.
--- NOTE | 2020-08-03 05:58 | NUR ---
in room to attempt to wake patient to get her to void. pt not responding to voice, not responding to touch. with hard sternal rub she eventually moved her arms and head. Pupils are pinpoint and fixed. Vital signs remain stable. Blood rr=12, spo2= [address] Harrison updated on change in patients responsiveness. no new orders at this time. will continue to monitor
--- NOTE | 2020-08-03 08:00 | NUR ---
REPORT RECEIVED FROM NIGHTSHIFT RN, WILL RESUME CARE OF PT. AT THIS TIME.
--- NOTE | 2020-08-03 08:20 | NUR ---
DISCUSSED WITH DR. HOPE CONCERNS REGARDING PT'S CONDITION AND HER INCREASED ACTIVITY INTOLERANCE SHE HAD THROUGH THE NIGHT. DISCUSSED DESIRE FOR LABS - NO AM LABS YET BUT 0930 VANCO TROUGH TO BE ORDERED. PT'S PLATELETS WERE 67 YESTERDAY AND DISCUSSED THIS WITH . PENDING FURTHER ORDERS.
--- NOTE | 2020-08-03 08:43 | NUR ---
PT LAYING IN BED ASLEEP WITH PASTRY CHEF AT BEDSIDE. PT AWOKE TO VOICE AND IS NOW EATING BREAKFAST. SPO2 CURRENTLY AT 93% WHILE ON VAPOTHERM 30LPM, 60%. IV ABX INFUSING ORDERED. PT IN BED HIGH FOWLERS, WITH NO COMPLAINTS OF PAIN AT THIS TIME. BED IN LOWEST POSITION, CALL LIGHT WITHIN REACH. WILL CONTINUE TO MONITOR THE PT.
--- NOTE | 2020-08-03 11:04 | NUR ---
PT AWAKE AND ALERT IN BED. PT HAS NO COMPLAINTS OF PAIN. LEFT IV IN FOREARM WILL BE DC'D, NEW IV PLACED IN L HAND BY MARANDA RANDALL. PT TOLERATED INSERTION WELL. IV VANCO WILL BE INFUSING INTO NEW IV. PT SPO2 AT 94%, VAPOTHERM AT 30LPM 60%. PT BED IN LOWEST POSITION, CALL LIGHT WITHIN REACH. WILL CONTINUE TO MONITOR THE PT.
--- NOTE | 2020-08-03 12:32 | NUR ---
PT AWAKE AND ALERT IN BED EATING LUNCH BY SELF AND WATCHING TV. PT REPORTS NO PAIN AT THIS TIME. VAPOTHERM AT 30LPM 60% O2, SPO2 AT 91. AMIN TEMP AT 99.5. IV ABX INFUSING ORDERED. PT REPORTS NO FURTHER NEEDS AT THIS TIME. CALL LIGHT IN BED WITHIN REACH, BED IN LOWEST POSITION, WILL CONTINUE TO MONITOR THE PT.
--- NOTE | 2020-08-03 13:11 | NUR ---
DR. HOPE IN ROOM AT THIS TIME. PT'S VANCO COMPLETE AND IV SITE SALINE LOCKED IN LEFT HAND.
--- NOTE | 2020-08-03 14:22 | NUR ---
PT USED CALL LIGHT TO USE BEDSIDE COMMODE. PT WAS ABLE TO GET UP WITH ASSISTANCE TO COMMODE. PT ALSO REQUIRED ASSISTANCE TO GET BACK TO BED. PT WAS ABLE TO SHUFFLE WALK WITH SUPPORT. PT HAD A LARGE BOWEL MOVEMENT AND WAS TIRED AFTER GETTING BACK INTO BED. SPO2 DROPPED TO 84% BUT PT. QUICKLY RECOVERED. VAPOTHERM CURRENTLY AT 30LPM AT 60% O2, SPO2 AT 90%. IV ABX INFUSING, PT REPORTS NO FURTHER NEEDS AT THIS TIME, WILL CONTINUE TO MONITOR THE PT.
--- NOTE | 2020-08-03 17:13 | NUR ---
PT USED CALL LIGHT TO INFORM ME THAT HER RIGHT SHOULDER WAS HURTING. SHE STATED THE PAIN WAS AT AN 8 AND THAT IT FELT LIKE A CRAMP. SHE STATED IT WAS PAINFUL WHEN TOUCHED AND WHEN SHE MOVED HER ARM. PRN TYLENOL GIVEN FOR PAIN. PT SPO2 AT 92% ON 30LPM, 50% O2. PT DENIES ANY FURTHER NEEDS AT THIS TIME. WILL CONTINUE TO MONITOR THE PT.
--- NOTE | 2020-08-03 17:40 | NUR ---
PT USED CALL LIGHT TO ASK FOR A WET CLOTH. PT STATES HER RIGHT SHOULDER PAIN HAS IMPROVED WITH THE PRN TYLENOL, REPOSITIONING, AND HEAT PACK. PT STATES NO FURTHER NEEDS AT THIS TIME. CALL LIGHT WITHIN REACH, BED IN LOWEST POSITION, WILL CONTINUE TO MONITOR.
--- NOTE | 2020-08-03 19:45 | NUR ---
REPORT RECEIVED FROM RENE LOW. PT AWAKE IN BED, TALKING ON PHONE. VAPOTHERM IN PLACE SPO2 91% 30L/55%. CAREGIVER IN ROOM. PT CALLS TO REQUEST SPRITE AND ASK WHERE SHE IS ON HER FLUID RESTRICTION, PLAN FOR FLUIDS THROUGH THE NIGHT DISCUSSED WITH PT AND SHE IS AGREEABLE.
--- NOTE | 2020-08-03 21:30 | NUR ---
PT CONT TO SLEEP, VSS, AWAKENS BRIEFLY FOR ASSESSMENT BUT QUICKLY BACK TO SLEEP.
--- NOTE | 2020-08-03 21:58 | NUR ---
RT IN TO SET UP BIPAP.
--- NOTE | 2020-08-04 00:30 | NUR ---
PT HAS BEEN WEARING BIPAP WELL, PT RESTFUL. ASSESSMET DONE.
--- NOTE | 2020-08-04 02:37 | NUR ---
IV ANTIBIOTICS RUNNING PER ORDERS (SEE MAR). pt RESTING ON BiPAP.
--- NOTE | 2020-08-04 03:09 | NUR ---
PT CONT TO REST WEARING BIPAP, SPO2 97%.
--- NOTE | 2020-08-04 03:50 | NUR ---
IN TO DO ASSESSMENT, PT DENIES NEEDS. CONT TO TOLERATE BIPAP WELL.
--- NOTE | 2020-08-04 06:30 | NUR ---
DR HOPE UPDATED ON PTS CONDITION, NO NEW ORDERS AT THIS TIME. PT RESTING ON BIPAP SLEEPING, BIPAP REMOVED AND PT SEEMS DROWSY THIS MORNING. PLACED NASAL CANNULA AT 6L AND SPO2 DOWN TO 85%. CALLED RT TO SET PT BACK UP ON VAPOTHERM. LUNGS AUSCULTATED-CLEAR AND DIM IN BASES. PT DENIES PAIN OR SOB AT THIS TIME.
--- NOTE | 2020-08-04 08:00 | NUR ---
REPORT RECEIVED FROM NIGHTSHIFT RN, CARE OF PT RESUMED.
--- NOTE | 2020-08-04 09:37 | NUR ---
PT AWAKE IN BED ON VAPOTHERM AT 30LPM, 65% O2. SPO2 AT 92. SUPPLY CLERK IN ROOM AT BEDSIDE. PT DENIES HAVING ANY PAIN AT THIS TIME. PT GOT UP TO BEDSIDE COMMODE WITH ASSISTANCE TO HAVE A BOWEL MOVEMENT. PT WAS JO-ANN TO SHUFFLE WALK TO COMMODE AND BACK. PT STATES SHE FELT DIZZY AND TIRED AFTER THE EVENT. FULL BED CHANGE DONE WHILE PT ON COMMODE. PT SPO2 NOW AT 95%. PT DENIES ANY FURTHER NEEDS AT THIS TIME. WILL CONTINUE TO MONITOR.
--- NOTE | 2020-08-04 11:08 | NUR ---
IV SITE IN LEFT HAND AREA INFILTRATED AND NEW IV BEING STARTED BY RN. WILL D/C IV IN LEFT HAND.
--- NOTE | 2020-08-04 11:35 | NUR ---
MARANDA RANDALL INFORMED ME THAT DUE TO AIR-BORN DROPLETS, PRECAUTIONS ARE IN PLACE AND I AM UNABLE TO VISIT AT THIS TIME. WILL FOLLOW
--- NOTE | 2020-08-04 12:02 | NUR ---
PT LAYING IN BED AWAKE WATCHING TV. STOGIE PACKER CAME IN AND IS NOW SITTING AT BEDSIDE. L HAND IV DC'D. IV WAS INTACT. PT STILL ON VAPOTHERM AT SAME SETTINGS SPO2 AT 95%. PT REPORTS L HAND PAIN UPON PALPATION. PT FINISHED EATING, CALL LIGHT ON BED, BED IN LOWEST POSITION. PT REPORTS NO NEEDS AT THIS TIME, WILL CONTINUE TO MONITOR.
--- NOTE | 2020-08-04 14:42 | NUR ---
PT AWAKE IN BED WITH VAPOTHERM ON AT 30LPM, 55% O2, SPO2 AT 94%. IV ABX INFUSING ORDERED INTO R HAND IV. PT REPORTS NO PAIN AT THIS TIME. BED IN LOWEST POSITION, CALL LIGHT WITHIN REACH. WILL CONTINUE TO MONITOR THE PT.
--- NOTE | 2020-08-04 14:45 | NUR ---
Pt. had an ensure for a snack. It was recorded.
--- NOTE | 2020-08-04 15:00 | NUR ---
Update from RN, no changes. Per am meeting with Dr. Harrison pt to stay in CCU. CG Radha is wanting a plan for dc. Will call her tomrrow after I speak with Dr. Harrison at 0830 meeting.
--- NOTE | 2020-08-04 15:30 | NUR ---
PT AWAKE AND ALERT. BED BATH GIVEN AND PT SHUFFLE WALKED TO [facility] TO HAVE A BOWEL MOVEMENT. PT HAD A SMALL BOWEL MOVEMENT. PT ALDEN WALKED BACK TO BED AND STATED SHE FELT VERY TIRED AND HAD FELT DIZZY INTIALLY WHEN SITTING UP TO GO TO COMMODE. IV ABX INFUSING ORDERED STILL. PT REPORTS NO PAIN AT THIS TIME. PT NOW LAYING IN BED, ON VAPOTHER, WATCHING TV. BED IN LOWEST POSITION, CALL LIGHT WITHIN REACH. WILL CONTINUE TO MONITOR.
--- NOTE | 2020-08-04 17:21 | NUR ---
PT AWAKE AND ALERT LAYING IN BED WATCHING TV. GASOLINE PUMP MECHANIC IN ROOM AT BEDSIDE. PT REPORTS NO PAIN AT THIS TIME. IVF INFUSING ORDERED. VAPOTHERM ON PT AT 30LPM, 55% O2, SPO2 AT 94%. IV ABX INFUSING ORDERED. WILL CONTINUE TO MONITOR THE PT.
--- NOTE | 2020-08-04 19:30 | NUR ---
REPORT RECEIVED FROM RENE LOW. PT AWAKE IN BED WATCHING TV.
--- NOTE | 2020-08-04 21:30 | NUR ---
IN TO DO HS MEDS. PT NOT READY TO WEAR BIPAP, WANTING TO WATCH TV.
--- NOTE | 2020-08-05 01:30 | NUR ---
BIPAP PLACED ON PT TO TRY TO SLEEP FOR THE NIGHT.
--- NOTE | 2020-08-05 05:18 | NUR ---
PT RESTING WITH BIPAP IN PLACE, HR 56 SPO2 98%.
--- NOTE | 2020-08-05 07:44 | NUR ---
REPORT RECEIVED FROM NIGHTSHIFT RN, CARE OF PT. RESUMED AT THIS TIME, WILL CONTINUE TO MONITOR.
--- NOTE | 2020-08-05 08:53 | NUR ---
Did pt. vitals, cleaned up room, wiped table down, emtied amezcua, cleaned floor and emptied all the garbages.
--- NOTE | 2020-08-05 09:06 | NUR ---
PT LAYING IN BED EATING BREAKFAST. PT WAS A BIT GROGGY BUT IS MORE ALERT NOW. MACHINE SET UP AT BEDSIDE. PT STATES SHE HAS NO PAIN AT THIS TIME. PT WAS ON BIPAP BUT NOW ON VAPOTHERM. 30LPM, 60%, SPO2 99% AT REST. IV ABX INFUSING AT THIS TIME WELL. WILL CONTINUE TO MONITOR THE PT.
--- NOTE | 2020-08-05 09:44 | NUR ---
PT HAD A MOMENT OF VENT. BIGEMINY AT 09:44. WAS NOT SUSTAINED. PT WAS EATING BREAKFAST AT THE TIME. WILL CONTINUE TO MONITOR THE PT.
--- NOTE | 2020-08-05 11:27 | NUR ---
PT ASLEEP IN BED WITH WEEDER THINNER AT BEDSIDE. PT CARE DONE, BED CHANGED, BED BATH DONE, PT HAD A SLIGHT SMEAR/BOWEL MOVEMENT PRESENT WHEN CLEANING. PT SPO2 AT 94%, AMIN TEMP 97.6. PT VAPOTHERM AT 30LPM, 55%. PT REPORTS NO NEEDS AT THIS TIME, WILL CONTINUE TO MONITOR THE PT. IV ABX COMPLETE, IV'S FLUSHED AND SALINE LOCKED.
--- NOTE | 2020-08-05 11:45 | NUR ---
PT AWAKE AND ALERT READING HOSPITAL MENU TO ORDER LUNCH. PT ASESSED. SPO2 AT 94% WHILE ON ROOM AIR. WARM RAG PLACED OVER L THIGH PT SAID IT WAS ITCHING. PT REPORTS NO PAIN AT THIS TIME. BED IN LOWEST POSITION, CALL LIGHT WITHIN REACH, WILL CONTINUE TO MONITOR THE PT.
--- NOTE | 2020-08-05 12:23 | NUR ---
Robert and I gave pt. a bedbath, clean gown and new linens.
--- NOTE | 2020-08-05 12:26 | NUR ---
PT ASSESSED. PT SEEMS DROWSY/SLEEPY. PT LAYING IN BED WITH VAPOTHERM ON SLEEPING. SPO2 AT 94% WHILE ON 30LPM. PT ORIENTED AND STATES SHE FEELS SLEEPY/TIRED. WHEN ASKED IF SHE FEELS HAZY BY RN ADITHYA PT STATED NO. WILL CONTINUE TO MONITOR PT. BED IN LOWEST POSITION, CALL LIGHT ON TOP OF PT WITHIN REACH. PT WAS ABLE TO POINT AT RED BUTTON ENGRAVER LETTER LIGHT WHEN ASKED WHAT BUTTON TO PUSH TO CALL US.
--- NOTE | 2020-08-05 13:10 | NUR ---
LAYING IN BED SLEEPING. PT WOKEN UP TO SEE HOW ORIENTED SHE WAS. PT WAS ORIENTED TO SELF, MONTH, DAY, AND LOCATION. PT ABLE TO FOLLOW WITH EYES. AFTER SOME COMMUNICATION AND ASKING HER TO FOLLOW COMMANDS PT SEEMS MORE AWAKE. TV TURNED ON, PT WAS ATTENTIVE TO IT. WILL CONTINUE TO MONITOR PT. CALL LIGHT ON BED WITH PT. BED IN LOWEST POSITION
--- NOTE | 2020-08-05 13:46 | NUR ---
PT UP TO BEDSIDE COMMODE TO HAVE A BOWEL MOVEMENT. PT WAS ABLE TO SHUFFLE WALK OVER TO COMMODE WITH LITTLE ASSISTANCE. PT HAD LARGE BOWEL MOVEMENT, AND WAS ABLE TO SHUFFLE WALK BACK WITH MINIMAL ASSISTANCE FROM RN. PT NO LAYING IN BED WATCHING TV. WHEN ASKED IF PT FELT DIZZY SHE DENIED IT. WILL CONTINUE TO MONITOR PT. CALL LIGHT WITHIN REACH, BED IN LOWEST POSITION.
--- NOTE | 2020-08-05 14:07 | NUR ---
PT ASLEEP, DID NOT DISTURB. WILL CONTINUE TO FOLLOW
--- NOTE | 2020-08-05 14:22 | NUR ---
PATIENT RESTING AT THIS TIME ON VAPOTHERM AND SP02 RANGING 95-96%. SETTINGS TITRATED DOWN TO 25 L AND 45%. PT AWAKENS EASILY, BUT IS OVERALL MORE TIRED. HR IN THE 50s. LAST BP 91/56. AMIN DRAINING CLEAR YELLOW URINE. CONTINUE TO MONITOR.
--- NOTE | 2020-08-05 15:39 | NUR ---
PT AWAKE AND ALERT IN BED WATCHING TV. PT HAD JUST FINISHED EATING A SNACK. PT ON VAPOTHERM AT 25LPM AND 45% O2. SPO2 AT 92%. IV ABX INFUSING ORDERED. PT REPORTS NO PAIN AND NO FURTHER NEEDS AT THIS MOMENT. WILL CONTINUE TO MONITOR THE PT. CALL LIGHT IN REACH, BED IN LOWEST POSITION.
--- NOTE | 2020-08-05 16:48 | NUR ---
PT USED CALL LIGHT TO STATE IV IN UPPER ARM WAS PAINFUL. IV WAS ASSESSED AND REMOVED. IV FLUSHED EASILY BUT PT STATED IT HAD BEEN IRRITATING HER FOR ABOUT 25 MIN. IV WAS NOT INFUSING AND WAS SALINE LOCKED. IV DC WAS TOLERATED WELL, IV WAS INTACT UPON DC. WILL CONTINUE TO MONITOR THE PT. PT REPORTS NO FURTHER NEEDS AT THIS TIME.
--- NOTE | 2020-08-05 17:30 | NUR ---
Spoke with RN. Avila is improved today. Vapotherm decreased from 65% to 45% and 02 at 25L. Will need to be reswabbed tomorrow for Covid. Pt is using Bipap at night and is sleeping well.
--- NOTE | 2020-08-05 18:51 | NUR ---
PT AWAKE AND ALERT TALKING TO [employer] AT BEDSIDE. PT ON VAPOTHERM AT 25LPM 55%. SPO2 AT 93%. TEMP 98.9. PT REPORTS NO FURTHER NEEDS AT THIS TIME. WILL CONTINUE TO MONITOR PT.
--- NOTE | 2020-08-05 19:30 | NUR ---
PT IV INFILTRATED. IV REMOVED BY RN DEANA. 20G IV PLACED IN LEFT WRIST. IV RETURNED BLOOD AND FLUSHED. IV ABX NOW INFUSING INTO NEW IV. PT AWAKE AND ALERT. PT DENIES ANY FURTHER NEEDS AT THIS TIME. HANDOFF REPORT GIVEN TO [facility]. .
--- NOTE | 2020-08-05 21:00 | NUR ---
PATIENT GIVEN MEDS AND REPORTED HAVING A BM IN BED. IBUPROFEN GIVEN FOR FEVER. BEDDING CHANGED AND PATIENT CLEANED. PATIENT REPORTED THAT HER AMIN WAS LEAKING. AMIN INSPECTED AND SOME MOISTURE. PREVIOUS NURSE STATED THAT THIS WAS ON ONGOING ISSUE. DRIED AREA AND APPLIED BARRIER WIPE TO SKIN. PATIENT HAD A PRODUCTIVE COUGH WITH THICK GREEN SPUTUM. PATIENT LEFT RESTING IN BED WITH CALL LIGHT IN REACH.
--- NOTE | 2020-08-05 21:20 | NUR ---
PATIENT BP 67/53. BP TAKEN ON RIGHT LEG AND WAS 110/90. PATIENT ASSISTED TO COMMODE FOR BM. PATIENT DESATED T0 79 AFTER AMBULATION. VAPOTHERM FIO2 TITRATED TO 65%. SATS RETURNED TO 90'S. PATIENT LEFT RESTING IN BED AND DENIED FURTHER NEEDS.
--- NOTE | 2020-08-05 21:59 | NUR ---
PATIENT ASSESSMENT COMPLETED. PATIENT DENIES PAIN. MODERATE EDEMA IN RIGHT HAND AND TRACE EDEMA IN LOWER EXTREMITIES. REMOVED COBAND FROM RIGHT HAND AND ELEVATED ON PILLOW. PATIENT FEBRILE. PATIENT REQUESTED SPRITE AND SNACK. PATIENT LEFT RESTING IN BED WITH CALL LIGHT IN REACH.
--- NOTE | 2020-08-05 22:00 | NUR ---
PATIENT ABX GIVEN. PATIENT ASSISTED TO COMMODE FOR BM. REPOSITIONED IN BED AND AMIN CARE COMPLETED. PATIENT ASKED FOR A SPRITE. IV SITE WNL AND FLUSHED WELL. PATIENT LEFT RESTING IN BED WITH CALL LIGHT IN REACH.
--- NOTE | 2020-08-05 23:33 | NUR ---
PATIENT USED CALL LIGHT APPROPRIATELY FOR ASSISTANCE TO COMMODE. ALMA ROSA, FORMED BM. PATIENT TOLERATED WELL. REQUESTED SPRITE. PATIENT LEFT RESTING IN BED WITH CALL LIGHT IN REACH.
--- NOTE | 2020-08-06 00:20 | NUR ---
PATIENT USED CALL LIGHT APPROPRIATELY FOR ASSISTANCE. PATIENT SWITCHED FROM VAPOTHERM TO BIPAP FOR SLEEP. PATIENT ASSESSMENT COMPLETED. DENIED PAIN. IV SITE WNL. PATIENT LEFT RESTING IN BED WITH CALL LIGHT IN REACH.
--- NOTE | 2020-08-06 02:00 | NUR ---
PATIENT VANCO TROUGH NOT ORDERED OR DRAWN SINCE 08/03/20. HOLDING VANCO UNTIL TELEPHARMACY CONTACTED.
--- NOTE | 2020-08-06 02:15 | NUR ---
PATIENT SCHEDULED FOR VANCO AT 0200. LAST VANCO TROUGH WAS 08/03/20 AT 0955. THIS NURSE CALLED TELEPHARMACY AND WAS DIRECTED TO ORDER A VANCO TROUGH. LAB DRAWN.
--- NOTE | 2020-08-06 03:08 | NUR ---
0235 VANCO TROUGH WAS 26.1. THIS NURSE CALLED TELEPHARMACY AND WAS ORDERED TO HOLD 0200 VANCO.
--- NOTE | 2020-08-06 04:00 | NUR ---
PATIENT PULSE OX REPOSITIONED AND ASSESSMENT COMPLETED. AMIN EMPTIED OF 35 ML CLOUDY YELLOW URINE. PATIENT LEFT RESTING IN BED WITH EYES CLOSED AND CALL LIGHT IN REACH.
--- NOTE | 2020-08-06 06:06 | NUR ---
PATIENT LABS DRAWN AND ABX GIVEN. PATIENT RESTING WITH EYES CLOSED. 25ML OF CLOUDY, YELLOW URING EMPTIED FROM AMIN. PATIENT LEFT RESTING IN BED WITH CALL LIGHT IN REACH.
--- NOTE | 2020-08-06 07:10 | NUR ---
Outside pt room for morning shift report. Pt visible through glass from nurses station. Report included that pt had a good nights sleep while on BiPap last night (BiPap set to 16/8 & 50%). Pt was incontinent of stool, amezcua in place for urine. Report also included that pts vanco troph was high at 26.1, so last vanco was held, new vanco troph to be drawn later this morning. Pts tolerating her 2g Na diet and fluid restriction well. Urine has been cloudy and nightshift RN recommends requesting a UA from the MD today. Pt will likely move from BiPap to Vapotherm for the daytime. Pt lying in bed, side rails up, call light within reach.
--- NOTE | 2020-08-06 08:15 | NUR ---
In room for morning med pass and assessment. Pt groggy upon greeting, but became alert and oriented x3 after about 5 mins. Pt was able to take all meds without difficulty. Pt has IV ABX running currently, IV site clean dry and intact, no redness or swelling around insertion site. Assisted pt with a warm cloth face wash, she appeared sweaty/oily. Pt reports no pain or nausea at this time. Pts caregiver to bedside. Pts lungs sounded somewhat diminished, with faint expiratory wheezes in upper lobes. Pt reported no difficulty breathing beyond her normal. Pt ordered breakfast, finished her half cup of sprite at bedside table. Pt left lying in bed, side rails up, table and call light within reach, caregiver at bedside.
--- NOTE | 2020-08-06 08:22 | NUR ---
RT COLLECTED COVID 19 SWAB USING INCYTE WITH NO COMPLICATIONS. RT PLACED SWAB IN THE INCYTE FRIDGE AT THIS TIME.
--- NOTE | 2020-08-06 08:30 | NUR ---
In room with pt and RT Luis E to bedside. RT moved pt from BiPap to Vapotherm Highflow NC (set at 25LPM, 55%oxygen, 37). Pt demonstrated proper use of I.S. and proper use of acapella. Pt educated on deep breathing and respiratory care measures. Pt up to chair with assistance. Pt sitting up in chair having breakfast. Pt able to feed self successfully, no concerns for aspiration. Pts linens changed, clean chucks placed. MD in the room. notified about PTs cloudy urine. MD Harrison decides not to order UA. VSS. Pt sitting up in chair, table over lap, call light and breakfast within reach. Caregiver at bedside.
--- NOTE | 2020-08-06 09:15 | NUR ---
In room for pt care. Pt bathed, jonatan care done, oral care done, clean gown placed. VSS & charted. Bed weight taken, pt is currently 217lbs. Caregiver was concerned about her weight gain, stating "she just looks a bit heavier in her arms and torso" & "i know before she left our facility she was about 200lbs". Pt amezcua emptied 200mls of cloudy yellow urine. Pt returned to bed as requested, side rails up, bed in lowest position, table and call light within reach, caregiver at bedside.
--- NOTE | 2020-08-06 09:55 | NUR ---
THIS RN TO ROOM TO ASSIST WITH VANCO TROUGH LAB DRAW. 3ML LAB DRAWN WITH BUTTERFLY NEEDLE FROM RIGHT HAND. GAUZE AND COBAN APPLIED. LABS SENT PER PROTOCOL. MARANDA GARZA REMAINS AT BEDSIDE.
--- NOTE | 2020-08-06 10:00 | NUR ---
In room for pt care. Selenao troph taken by Macrina LOW at bedside. Pts sample sent to lab. Pt lying in bed, side rails up, call light and table within reach, caregiver at bedside.
--- NOTE | 2020-08-06 11:00 | NUR ---
In room to change pt. Pt was incontinent of stool, brown and soft/semi-formed. Pt changed, cleaned, jonatan care done and new chucks pad placed. Lozano bag emptied and charted. Urine looks better than this morning, very minimally cloudy and light yellow. IV ABX infusion completed, IV disconnected and IV saline locked, alcohol caps placed, IV draws with resistance but flushes easily. IV pump volume infused taken and cleared. Pt left lying in bed, bed in lowest position, side rails up, call light and side table within reach. Pt caregiver in the room. Pt reports no pain, nausea, or further needs at this time.
--- NOTE | 2020-08-06 11:14 | NUR ---
Day 8 Vancomycin per pharmacy for pneumonia (trough goal 15-20) 08/06 0230 vancomycin trough supratherapeutic = 26.1 0200 dose held. Random vancomycin level ordered @1000 = 18.0. Dose reduced from 1.25 g IV q 8 hours to 1.25 g IV q 12 hours. Patient is afebrile, WBC are WNL. SCr appears stable, however is slightly elevated from yesterday, now = 0.72 with est CrCl = 94 ml/min, good UOP. Will discuss duration of antibiotics with MD in rounds 08/07. Pertinent cultures: 07/31 Sputum culture: light growth normal cayetano 07/30 MRSA PCR: negative 07/30 Blood x 2: no growth to date thank you, [facility]
--- NOTE | 2020-08-06 12:27 | NUR ---
In room for afternoon assessment and vitals. Pt up to chair, assisted by this RN and SU[employer]AIN[employer] FAC[employer]Y. Pt ABX infusion started. Pt had BM at this time, pt cleaned, new attends placed. Pt in chair, having lunch, call light within reach. Pt assessment complete, see charting. Pt desaturated to low 80s, oxygen turned up to 60, from 55. Pt now sats at 94%. Pt left sitting in chair, table over legs, call light within reach./
--- NOTE | 2020-08-06 13:45 | NUR ---
In room for pt care and afternoon med pass. Pt had BM and was cleaned up by this RN and HORTICULTURALIST. New attends placed, pt back in bed. Pt VSS, Is&Os taken, medications given without difficulty. Pt demonstrated use of I.S. and acapella. I.S. reaching around 750 on average. Pt given warm blankets and repositioned to comfort. Pt reports no pain or nausea or further needs at this time. Pt left lying in bed, side rails up, table and call light within reach. Curtains open, pt visible from nurses doorway. Vapotherm settings still 25LMP, 55% oxygen, 37 degrees C) pt sats at 97%.
--- NOTE | 2020-08-06 14:23 | NUR ---
CG IN WITH PT, MARANDA HAJI INFORMED ME WE ARE WAITING FOR COVID TEST RESULTS. WILL FOLLOW NEEDED
--- NOTE | 2020-08-06 14:50 | NUR ---
In room for pt care. Pt had another BM. Kathy care done, new attends placed. Pt repositioned in bed. Pt has new caregiver in the room at bedside. Pt reports no pain, nausea, or further needs at this time. Pt lying in bed, bed in lowest position, side rails up, table and call light within reach.
--- NOTE | 2020-08-06 16:05 | NUR ---
In room for pt evening assessment. Pt lying in bed, reports no pain or nausea. Took pts dinner order. Pt assessment done, see charting, no major changes noted except lungs sound better than they did this morning. Pt VSS. Pt I's&O's taken and charted. Pt repositioned and moved up in bed. Pt reports no further needs at this time. Pt lying in bed, sitting up to semi-fowlers position, side rails up, bed in lowest position, table and call light within reach.
--- NOTE | 2020-08-06 17:05 | NUR ---
Update from RN, pt is unchanged from yesterday.
--- NOTE | 2020-08-06 17:13 | NUR ---
Pt being treated for pneumonia/sepsis/pulmonary HTN. Today pt stayed on Vapotherm highflow NC set to 25LPM, 55% oxygen, 37degrees C. Pt had it titrated up twice when pt desaturated into the 80s with turning for jonatan care or with too much movement, pt was titrated up to 60% oxygen briefly both times, and returned to 55 and tolerated it well within less than 5 mins. Pt was moved from a 2g Na diet to a regular diet today per Stevie CANALES. Pt tolerating her diet and fluid restriction well. Pt has had several (4-5) medium BMs, incontinent, attends in place. Pt has amezcua in place, this morning was draining cloudy yellow urine. MD Harrison notified, denied request for a U.A. By this afternoon pts amezcua was draining only slightly cloudy light yellow urine. Pt has reported no pain or nausea for me the entire shift. Pt has caregivers from her facility in the room most of the day, they alternate. Pts Vanco troph from the previous shift was elevated at 26.1, they held her Vanco dose then. This mornings vanco troph was 18 and her Vanco dose was adjusted and given this afternoon, it is now on Q12 schedule. Pt has been afebrile today, and her vitals have been stable other than the incidents with desaturation. Pts weight today was 217lbs. Pt had expiratory wheezes for this mornings assessments, but they were clear from noon on, bases diminished. Pt had some QT prolongations this afternoon on the heart monitor. Pt had a bed bath today and linen change. In report to me, pt has been having nose bleeds, for me she had one scant smear of blood when she wiped her nose once this morning, no other bleeding since. Pts plt count was 101, enoxaparin DCd.
--- NOTE | 2020-08-06 18:17 | NUR ---
In room for pt care. Pt had a BM. Pt asssisted to bedside commode. Pt had one small BM. New attends placed, barrier cream applied. Pt assisted back to bed. In bed semi fowlers, side rails up, bed in lowest position, table and call light within reach, caregiver at bedside.
--- NOTE | 2020-08-06 20:00 | NUR ---
PATIENT ASSESSMENT COMPLETED. PATIENT REPORTS TENDERNESS IN YARI AND AMIN AREA. AREA IS RED AND CHAFFED. PERICARE PERFORMED AND BARRIER CREAM APPLIED. LUNGS SOUND DIM THROUGHOUT. PATIENT LEFT RESTING IN BED AND DENIED FURTHER NEEDS.
--- NOTE | 2020-08-06 21:00 | NUR ---
PATIENT MEDS GIVEN. PATIENT HAD A BM IN BED AND REQUESTED ASSISTANCE TO BEDSIDE COMMODE FOR ANOTHER BM. PERICARE AND AMIN CARE PERFORMED. PATIENT DESATTED IN 80'S AND BECAME TACHYPNEIC WHILE AMBULATING TO BED. TITRATED VAPOTHERM TO 60% FIO2. 1.5MG OF RISPERIDONE ORDERED FOR 2100 HOME MED. ONLY 1MG AVAILABLE AND DR. MONACO NOTIFIED BEFORE GIVEN. SELEXAPEG HOME MED ORDERED FOR 2100, BUT SCANNED DISCONTINUED. PATIENT REQUESTED WARM, WET WASHCLOTH FOR HEAD. PATIENT LEFT RESTING IN BED WITH CALL LIGHT IN REACH.
--- NOTE | 2020-08-06 22:30 | NUR ---
PATIENT CLEANED AFTER BM. YARI AND AMIN CARE PERFORMED. GOWN CHANGED AND LEADS PADS REPLACED. PATIENT BROUGHT WATER AND REPOSITIONED IN BED. PATIENT LEFT RESTING IN BED AND DENIED FURTHER NEEDS.
--- NOTE | 2020-08-06 23:21 | NUR ---
PATIENT USED CALL LIGHT APPROPRIATELY FOR ASSISTANCE TO COMMODE FOR BM. PERICARE AND AMIN CARE PERFORMED. BARRIER CARE APPLIED TO YARI AREA. AMIN EMPTIED OF 175ML CLOUDY YELLOW URINE. PATIENT LEFT RESTING IN BED WITH CALL LIGHT IN REACH.
--- NOTE | 2020-08-07 00:10 | PATH ---
[facility] [address], [place] [address] Signed ORDERING PHYSICIAN: Marielena Harrison MD PATIENT NAME: KEO BARRAZA GENDER: F : 1965 Prior History: DATE CASE NUM ADEQUACY DIAGNOSIS HPV RESULTS PHYSICIAN 01/11/19 [id number] Satisfactory/ N NIL Negative Tiffanie Araujo MD The 5 most recent reports are included. This history does not include results of pap smears performed at another laboratory. SPECIMEN(S): No Source Given MOLECULAR PATHOLOGY RESULTS: SARS-CoV-2 Not Detected ADDITIONAL NOTES.: The [place] [employer] SARS-CoV-2 Assay is a multiplex real-time PCR (RT-PCR) in vitro diagnostic test intended for the qualitative detection of RNA from SARS-CoV-2 from individuals who meet COVID-19 clinical and/or epidemiological criteria. In general, SARS-CoV-2 RNA can be detected during the acute phase of infection. Positive results indicate the presence of SARS-CoV-2 RNA. Clinical correlation with patient history and other diagnostic information is necessary to determine patient infection status. Positive results do not rule out bacterial infection or co-infection with other viruses. Negative results do not preclude SARS-CoV-2 infection and should not be used as the sole basis for patient management decisions. Negative results must be combined with other clinical observations, patient history, and epidemiological information. The [place] Fusion SARS-CoV-2 Assay is not yet approved or cleared by the [place] FDA. When there are no FDA-approved or cleared tests available, and other criteria are met, FDA can make tests available under an emergency access mechanism called an Emergency Use Authorization (EUA). The EUA for this test is supported by the Carpet Inspector Finished of Health and Human Service's (HHS's) declaration that circumstances exist to justify the emergency use of in vitro diagnostics for the detection and/or diagnosis of the virus that causes COVID-19. This EUA will remain in effect for the duration of the PATIENT NAME: KEO BARRAZA PATHOLOGY DATE OF : 61 REPORT #: [id number] PHYSICIAN: [place] [facility] PCP: GISELLE ARMIJO MD REPORT IS CONFIDENTIAL AND NOT TO BE RELEASED WITHOUT AUTHORIZATION [facility] [address], [place] [address] Signed COVID-19 declaration justifying emergency of IVDs, unless it is terminated or revoked by FDA, after which the test may no longer be used. The [place] Fusion SARS-CoV-2 Assay is for use only under EUA in US laboratories certified under the Clinical Laboratory Improvement Amendments of 1988 (CLIA) to perform high complexity tests. [facility] is certified under CLIA to perform high complexity clinical laboratory testing. PERFORMING LABORATORY.: Molecular testing was performed by [facility] [id number] [place] [address] (Rheumatologist: Harish Paulino D.O.; CLIA#: [id number]) Diagnostician: System Interface Pathologist Electronically Signed 08/06/2020 Copies: ~ PATIENT NAME: KEO BARRAZA PATHOLOGY DATE OF : 61 REPORT #: [id number] PHYSICIAN: [place] [facility] PCP: GISELLE ARMIJO MD REPORT IS CONFIDENTIAL AND NOT TO BE RELEASED WITHOUT AUTHORIZATION
--- NOTE | 2020-08-07 00:18 | NUR ---
PATIENT SWITCHED FROM VAPOTHERM TO BIPAP AT 16/8 AND 50%FIO2. COULD NOT GIVE SCHEDULED VANCO AT 0000 IT WAS NOT COMPATIBLE WITH IV CEFAPIME AND PATIENT HAD ONE IV SITE. PATIENT ASSESSMENT COMPLETED. PATIENT LEFT RESTING IN BED WITH CALL LIGHT IN REACH.
--- NOTE | 2020-08-07 02:24 | NUR ---
PATIENT IV FLUSHED AND IV VANCO GIVEN. PATIENT HAD INCONTINENT BM. PERICARE AND AMIN CARE PERFORMED. PATIENT REPOSITIONED AND LEFT RESTING IN BED WITH CALL LIGHT IN REACH.
--- NOTE | 2020-08-07 03:15 | NUR ---
PATIENT HAD INCONTINENT BM. PERICARE AND AMIN CARE PERFORMED. PATIENT REPOSTIONED AND LEFT RESTING IN BED WITH CALL LIGHT IN REACH.
--- NOTE | 2020-08-07 04:30 | NUR ---
PATIENT USED CALL LIGHT APPROPRIATELY FOR ASSISTANCE WITH INCONTINENT BM. YARI AND AMIN CARE COMPLETED. PATIENT LEFT RESTING IN BED AND DENIED FURTHER NEEDS.
--- NOTE | 2020-08-07 06:00 | NUR ---
IV FLUSHED ABX HUNG. PATIENT HAD INCONTINENT BM. YARI AND AMIN CARE PERFORMED. PATIENT LEFT RESTING IN BED WITH CALL LIGHT IN REACH.
--- NOTE | 2020-08-07 07:30 | NUR ---
tHIS RN AND MARANDA GARZA CARING FOR PT THIS SHIFT. REPORT RECEIVED FROM MARANDA RODGERS. PT RESTING IN BED WITH BIPAP IN PLACE. O2 AT 100% WITH 16/8 AND 50%. HEAR TRATE OF 63. BED RAILS UP. CALL LIGHT WIHTIN REACH. PT ALLOWED TO REST.
--- NOTE | 2020-08-07 08:00 | NUR ---
THIS RN TO ROOM FOR MORNING ASSESSMENT AND MEDICATION ADMINISTRATION. PT RESTING IN BED WITH EYES CLOSED. PT RESPONDS TO VOICE AND OPENS EYES STATING SHE IS READY FOR BREAKFAST. ASSESSMENT DONE. EDEMA TO HANDS AND ARMS MUCH IMPROVED. MINIOR GENERALIZED EDEMA CONTINUES. AMIN CATHETER DRAINING CLOUDY URINE. YARI CARE DONE. PT UP TO CHAIR. DEPENDS CHANGED. CATHETER CARE DONE. SOFT BOWEL MOVEMENT WITH PARTICLES OF UNDIGESTED FOOD NOTED. PT REPORTS HAVING TROUBLE WITH CONTINUAL LEAKING OF STOOL. FINE CRAKES NOTED IN LOWER LOBES OF LUNGS. PT DEMONSTRATES USE OF I.S. REACHING 750ML. VAPOTHERM IN PLACE WITH SETTINGS OF 25LPM AND 55%. TITRATED TO 25LPM AND 50%. PT TOLERATING TITRATION WITH O2 STATURATIONS ABOVE 92%. 2 PERSON ASSIST UP TO CHAIR. MORNING CARES DONE, HAIR COMBED, FACE WASHED. PT AWIAITING BREAKFAST. NO ADDITIONAL REQUESTS OR COMPLAINTS AT THIS TIME. CALL LIGHT ISABEL MORRIS. CAREGIVER AT BEDSIDE.
--- NOTE | 2020-08-07 08:05 | NUR ---
In room for morning meds and assessment. Pt lying in bed. Pt reports no pain or nausea. Pt up to chair with Macrina LOW. Pt able to take meds without difficulty. Pt IV assessed. Site red and sore to touch, doesn't draw back but flushes easily. Assessment complete, see charting. Pt sitting up in chair, reclining, having breakfast, table over lap, call light within reach, caregiver in room.
--- NOTE | 2020-08-07 09:10 | NUR ---
BREAKFAST ARRIVED AND BROUGHT TO PT. PT REPORTS PAIN AT URETHRAL SITE OF AMIN CATHETER. PT REQUESTS TO EAT BREAKFAST FIRST AND THEN HAVE HER DEPENDS CHANGED AGAIN. PT EATING BREAKFAST UP TO CHAIR. CAREGIVER AT BEDSIDE. CALL LIGHT WITHIN REACH.
--- NOTE | 2020-08-07 10:00 | NUR ---
In room for pt care. Pt in chair, table over legs, reclining, eyes closed, beathing even and unlabored. Pts IV site was inadequate on L forearm, new IV started on R forearm by Macrina LOW, line draws and flushes with ease. Pt reports no pain, slight nausea, pt spit up scant amount of mucous. Pt had BM, pt cleaned, amezcua care/jonatan care done (including iodine swabs around urethra where stool has been getting into), barrier cream applied to inner thighs and buttocks, new briefs placed. Pt demonstrated proper use of I.S. to 750 and acapella x5. Pt back to bed, positioned to comfort. Pt lying in bed, semi fowlers, side rails up, bed in lowest position, table and call light within reach, caregiver in room.
--- NOTE | 2020-08-07 10:20 | NUR ---
PT FINISHED WITH BREAKFAST. PT STATES SHE HAS HAD ANOTHER BOWEL MOVMENT. YARI CARE DONE. PT VERY SOILED. CATHETER CARE DONE. IODINE SWABS USED AROUND CATHETER ENTRANCE. BARRIER CREAM APPLIED TO YARI AREA AND GLUTEAL CLEFT. FRESH DEPENDS IN PLACE. NEW ALLEVYN APPLIED TO RIGHT LOWER BACK WOUND. SMALL AMOUNT OF RED DRAINAGE NOTED ON OLD ALLEVYN DRESSING. PT REPORTS PAIN AT LEFT FORARM IV SITE. SITE FLUSHES WELL. SITE SALINE LOCKED. NEW IV STARTED IN RIGHT HAND PER PROTOCOL. IV ABX INFUSION SWITCHED TO NEW RIGHT HAND IV SITE. VAPO THERM WEANED TO 25LPM AND 45% FIO2. PT TOLERATING NEW SETTINGS WITH O2 SATRUATIONS 91-93%. 2 PERSON ASSIST BACK TO BED. PT RESTING IN BED WITH HEAD OF BED ELEVATED TO 30 DEGREES. BED RAILS UP. CALL LIGHT ISABEL MORRIS. CAREGIVER AT BEDSIDE.
--- NOTE | 2020-08-07 11:20 | NUR ---
THIS RN TO ROOM WITH MD FOR ROUNDS. PT DROWSY AND RESPONDING ONLY MINIMALLY TO MD'S QUESTIONS. NEW ORDERS PLACED. AMIN CATHETER DC'D PER MD ORDER. URINE SAMPLE SENT TO LAB. PT WEANED BY MD TO 20LPM AND 40% FIO2, PT TOLERATING WELL. ORDER TO PLACE PT ON HIGH FLOW NASAL CANULA. HIGH FLOW NASAL CANULA AT 5L PLACED. PT TOELRATING WELL WITH O2 SATURATIONS ABOVE 92%. ORDERS PLACED FOR PT TO BE TRANSFERED TO MED/SURG. CAREGIVER UPDATED, QUESTIONS ANSWERED. PT CONTINUES RESTING IN BED WITH EYES CLOSED, RESPIRATIONS EVEN AND UNLABORED. O2 SATURATION AT 94% ON HIGH FLOW NASAL CANULA. BED RAILS UP. CALL LIGHT WIHTIN REACH.
--- NOTE | 2020-08-07 12:32 | NUR ---
Report given to Abigail LOW on Medsurg unit. Pt being transfered to [facility] room 114. This report given at 1230 by phone.
--- NOTE | 2020-08-07 13:10 | NUR ---
Pt transfered to [facility] unit to room 114 to Abigail LOW. Pt was on 5L humidified highflow oxygen and satting at 93% upon transport. Pts bed immediately connected to the wall in 114. Pt resting in bed, eyes closed, breathing even and unlabored. Greeted by Abigail LOW and Kacie LOW, vitals taken, assessment began. Vancomycin pulled from [place] and given to Abigail LOW. Care transfered.
--- NOTE | 2020-08-07 13:19 | NUR ---
PATIENT ARRIVED TO MED SURG FROM CCU VIA BED. PATIENT IS SLEEPY, WEARING 5L OF OXYGEN. IV VANCO FROM 1200 DOSE STARTED.
--- NOTE | 2020-08-07 13:40 | NUR ---
CHECKING ON PT, SHE IS BEING MOVED TO M/S RM 114 I WAS PRESENT. WILL CHECK BACK WHEN PT IS SETTLED
--- NOTE | 2020-08-07 15:20 | NUR ---
PATIENT AWAKE TO TAKE AFTERNOON MEDICATIONS. DIRECT CARE PERSON INDICATES THAT THIS IS PATIENT'S USUAL TO SLEEP MOST OF THE DAY, UNTIL AFTER LUNCH.
--- NOTE | 2020-08-07 20:00 | NUR ---
WAS IN RM WITH RN TO GET VITALS, I&Os, AND CHANGE PT ATTENDS DUE TO INCONTANCE, PERICARE COMPLETE, RN FINISHING WITH ASSESSMENT, PROVIDED PT WARM BLANKET, NO FURTHER REQUEST AT THIS TIME
--- NOTE | 2020-08-07 20:11 | NUR ---
O2 3LNC, SATS WNL, DENIES SOB OR DISTRESS WHEN TURNING, MOIST NON PRODUCTIVE COUGH PRESENT, LUNGS BILAT DIM AT BASES FAINT CRACKLES. IS AT BEDSIDE, GETS NEBS WITH RT. CPOX BY TELE IN PLACE. SATS WNL. INCONTINENT OF URINE, CHANGED, RED YARI AREA, BARRIER CREAM TO AREA, ALLEVYN R MID BUTTOCKS IN PLACE. CLEAN ATTENDS IN PLACE. HELPED WITH TURNING, INVOLUNTARY HAND TREMORS PRESENT, STIFFNESS LE, SCDS R LEG, HEEL PROTECTORS IN PLACE. TOLERATING FLUIDS WELL. 2 SL PATENT. DENIES ADVERSE REACTION TO IV ABX. NO C/O PAIN AT THIS TIME, CALL LIGHT AT HANDS REACHN, FLUIDS AT BEDSIDE
--- NOTE | 2020-08-07 22:44 | NUR ---
RESTING, O2 3LNC, SATS 94%, EYES CLOSED, NO DISTRESS, CALL LIGHT AND FLUIDSA T BEDSIDE, HOB ELEVATED, SCDS AND HEEL PROTECTORS IN PLACE
--- NOTE | 2020-08-08 02:14 | NUR ---
CHECKED ON PT, PROVIDED A PUDDING, NO FURTHER REQUESTS AT THIS TIME
--- NOTE | 2020-08-08 02:43 | NUR ---
PT INCONTINENT OF URINE AND BOWEL, SKIN CARE, BARRIER CREAM, CLEAN ATTENDS IN PLACE, REPOSITIONED, INVOLUNTARY HANDS/ARMS TREMORS PRESENT, FIDGETTY WITH TELE CPOX, HR PER TELE WAS 220 BUT WHEN THIS RN AUSCULTATED HER HEART RATE IT WAS LESS AT 76, SATS W OVERHEAD MACHINE WERE 93% ON 3l, 83% PER FINGER/TELE CPOX. REPOSITIONED. TELE LEADS APPLIED PER ICU, AND FINGER PROBLE/TELECPOX REPOSITIONED IN FINGER, HEART RATE WAS NOT IN THE 220'S PER THE READING. PT AWAKE, DENIES CHEST PAIN OR FLUTTER/RACY HEART RATE. NO SOB. HAD PUDING X2 AND POP. TOLERATED WELL, NO C/O PAIN. REPOSITIONED IN BED TOO. O2 3L NC HIGH FLOW, CURRENT SATS 95%, TELE#[address] SR, CHARGE NURSE NOTIFIED, WILL NOTIFY OF ABOVE FINDINGS
--- NOTE | 2020-08-08 04:24 | NUR ---
RESTING, EYES CLOSED, O2 3L NC, HIGH FLOW, NO DISTRESS, SATS 97%, TELE#[address], SR, TELE/CPOX. LL LEG SCDS, HEEL PROTECTOR X2 IN PLACE. FLUIDS AND WATER AT BEDSIDE
--- NOTE | 2020-08-08 05:39 | NUR ---
Pt on 3L high flow O2 NC, sats at this time 95-97%, tele#[address], SR, teleCPOX in place, lungs dim at bases, dis not used CPAP last night, gets nebs, no c/o sob when turning or heart palpitaions. involuntary tremors of hands, pt was fidgeting with cpox probe which resulted in false tachychardia and hypoxia, repositioned to toes and pulse has been staedy and equal to tele HR, sats on mid to high 90's. Turned and repositioned, Incontinent of urine and bowel this shift, coop with turning, c/o weakness LE, scds R leg, heel protectors in place, flat affect, coop with assessments, no c/o pain or n/v, uses call light appropriately and tolerating fluids well
--- NOTE | 2020-08-08 06:36 | NUR ---
DR MONACO NOTIFIED OF PTS FALSE TELE/CPOX READING WITH SATS AND PULSE, "OK TO DC TELE AND CPOX" PT CURRENT READINGS 65 HEART RATE PER TELE, SATS 95% ON 3L NC O2. CPOX READING ON HER TOES AND P65. DENIES ANY SOB
--- NOTE | 2020-08-08 07:02 | NUR ---
TURNED, REPOSITIONED, INCONTINENT OF URINE AND BM. CHANGED
--- NOTE | 2020-08-08 07:20 | NUR ---
Report from Chen Vargas RN, recieved. Patient currently lying in bed, eyes closed with respirations even and unlabored. Allowed to rest at this time. Call light in reach.
--- NOTE | 2020-08-08 08:42 | NUR ---
Patient uses call light to inform staff she is uncomfortable. Incontinent of urine with stool streaking. Kathy-care completed, new brief on patient. Patient repositioned for comfort. States she is hot and requests no blankets at this time. Assessment completed. AM medications given, takes without difficulty. PRN Tylenol given for back discomfort. Denies other needs at this time. Call light in reach.
--- NOTE | 2020-08-08 10:28 | NUR ---
Patient incontinent of bowel and bladder. Kathy-care provided. Denies other needs at this time. Call light in reach, bed rails up X2, friend at bedside.
--- NOTE | 2020-08-08 12:35 | NUR ---
Lying in bed, visiting with friend. Denies needs.
--- NOTE | 2020-08-08 15:27 | NUR ---
Caregiver from [facility] concerned because patient is normally on 2gm sodium with 1,500 calorie/ day limit and fluid restriction of 1750 ml/[address] Hubbard notified of concerns and patient weight gain of 15 lbs since admission. Telephone Orders read back Dr. Hubbard/Jeremiah Navarro RN, to change diet to what she eats at home with fluid restriction.
--- NOTE | 2020-08-08 15:46 | NUR ---
Patient incontinent of bowel and bladder. Kathy-care completed, brief changed. Repositioned in bed. Denies other needs at this time.
--- NOTE | 2020-08-08 15:55 | NUR ---
Sitting up in recliner at this time. Denies needs. Call light in reach.
--- NOTE | 2020-08-08 16:03 | NUR ---
NO CHANGES IN DISCHARGE PLAN. PLAN IS TO RETURN HOME WITH CAREGIVERS AT DISCHARGE.
--- NOTE | 2020-08-08 17:46 | NUR ---
Up in chair this afternoon. O2 per hiflow cannula at 3L/min. Neb treatments given as prescribed. Multiple stools today. Continent and incontinent of urine today. 1 person assist for transfers. Continues on IV antibiotics. Otherwise SL. Lung sounds improved throughout the day.
--- NOTE | 2020-08-08 19:07 | NUR ---
TODAY THE NURSE AND I CHANGED HER AND DID YARI CARE. SEVERAL TIMES TODAY. NOW SHE IS USING THE BEDSIDE COMMODE.
--- NOTE | 2020-08-08 20:18 | NUR ---
Up to bsc earlier, voided, was incontinent and had bm. 1PA. back to bed, stated slight sob with exertion on return. In bed. Coop with assessment. on 3L high flow O2/NC. lungs dim at bases, distant heart sounds, trace edema generalized. 2 sl patent, multiple bruises over body, healing, allevyn on buttocks intact. attends in place. scds off at her requets at this time. Pt on 1800cc fluid restriction, and calorie restriction. standing weight was done, as caregiver has concerners over pt over 10# weight increase. Pt has involuntary hand tremors. watching tv. hob elevated, no c/o pain or n/v at this time, coop with repositioning. remaining fluids and call light at hands reach. no requests
--- NOTE | 2020-08-08 21:42 | NUR ---
resting. O2 in place, hob elevated. no distress, eyes closed, legs elevated
--- NOTE | 2020-08-08 21:57 | NUR ---
LE repositioned to her comofrt, on room air, call light at hands reach, tolerated sips of fluid, hob elevated to her comfort again too
--- NOTE | 2020-08-08 23:14 | NUR ---
Pt up to BSC, was incontinent of urine, and voided some urine in bsc, clean attends in place. skin care and barrier cream applied. back to bed. 1PA/FWW. O2 3LNC. slight sob with exertion noted, spot O2 sats 90%. sips of water given. Helps repositon in bed. hob elevated to her comfort
--- NOTE | 2020-08-09 01:29 | NUR ---
PT INCONTINENT OF URINE, ATTEND CHANGED, SKIN CARE AND BARRIER CREAM APPLIED USING CALL LIGHT SIP OF WATER GIVEN, O2 3L NC, NO DISTRESS
--- NOTE | 2020-08-09 02:31 | NUR ---
FLUSHED FACE, ON 3LNC HIGH FLOW O2, NO RESP DISTRESS, COOP WITH ASSESSMENT, LUNGS MUCH IMPROVED, DIM AT BASES, GOES BACK TO SLEEP, SIPS OF FLUID, HELPTS WITH TURNING, IV SL, NO C/O ADVERSE REACTION TO ABX. ATTENDS IN PLACE, LEGS ELEVATED, SCDS IN PLACE, HEEL PROTECTOR
--- NOTE | 2020-08-09 04:13 | NUR ---
Resting, eyes closed, O2 3L NC high flow, no distress, sl, call light and leftover fluids at hands reach.
--- NOTE | 2020-08-09 04:54 | NUR ---
On 3L high flow O2 NC, lungs dim at bases, no distress, no sob with turning this shift, much improved than yesterday. Up to br with 1PA, voided, back to bed. slow, steady gait, uses FWW. Back to bed. Has also been incontinent of urine and soft bm's. skin care and fresh attends in place. has been resting most of this shift. comfortable, helps with turning. SL patent, no c/o adverse reaction to IV abx. LE elevated. scds, heel protectors in place. Coop with assessments
--- NOTE | 2020-08-09 06:00 | NUR ---
C/O LOW BACK PAIN, MEDICATED WITH TYLENOL 650MG PO, REPOSITONED IN BED. HOB ELEVATED, O2 3L HIGH FLOW NC, NO OTHER REQUESTS, TOLERATING FLUID RESTRICTION
--- NOTE | 2020-08-09 07:18 | NUR ---
Report from Chen Vargas RN. Patient resting with eyes closed, respirations even and unlabored. Allowed to rest. Call light in reach, bed rails up X2.
--- NOTE | 2020-08-09 09:16 | NUR ---
Assessment completed. Incontinent of urine. Kathy-care provided. 1 person assist to recliner. Sitting up, eating breakfast. AM medications given. Takes without difficulty. Denies other needs at this time. Call light in reach, bed rails up X2. States pain is well controlled.
--- NOTE | 2020-08-09 10:14 | NUR ---
Uses call light multiple times in span of 10 minutes per aide. Patient complaining of pain in bilat shoulders. Repositioned patient and PRN Tylenol given.
--- NOTE | 2020-08-09 10:39 | NUR ---
Up in recliner. Eyes closed. Respirations even and unlabored. Call light in reach. IV converted to SL.
--- NOTE | 2020-08-09 12:25 | NUR ---
Head of bed elevated. IV antibiotic initiated. Denies other needs at this time. Call light in reach, bed rails up X2.
--- NOTE | 2020-08-09 14:32 | NUR ---
Lying in bed, awake, visiting. IV medications administered as prescribed. Denies pain or discomfort at this time. Call light in reach, bed rails elevated. Assessment completed. No changes from this AM.
--- NOTE | 2020-08-09 15:17 | NUR ---
PATIENT TOOK A SHOWER TODAY. I ASKED HER HOW SHE WAS DOING AND SHE SAID FINE. SHE REALY ENJOYED HER SHOWER. SHE DID'NT WANT TO WASH HER HAIR. SUGEY CHANGED THE SHEETS ON HER BED. PATIENT IS NOW RESTING IN BED SHE HAS COMPANY IN HER ROOM.
--- NOTE | 2020-08-09 15:22 | NUR ---
SHE ALSO USED HER WALKER TO WALK IN THE BATHROOM.
--- NOTE | 2020-08-09 19:53 | NUR ---
ANSWERED CALL LIGHT. RANGE FEEDER AND THIS DIPLOMATIC COURIER CHANGED PATIEN'S INCONTINENT ATTENDS. RT VAZQUEZ WAS WITH PATIENT.
--- NOTE | 2020-08-09 19:57 | NUR ---
PT UTILIZES CALL LIGHT, REQUESTS TO BE CHANGED. PT TOLERATED WELL. IN GOOD SPIRITS, VERY THANKFUL FOR CARE. DISCUSSES TV SHOW SHE IS WATCHING. PT DENIES FURTHER NEEDS AT THIS TIME. CALL LIGHT IN REACH. CHAIN TENDER REMAINS IN ROOM.
--- NOTE | 2020-08-09 22:58 | NUR ---
INCONTINENT OF URINE, ATTENDS CHANGED, BARRIER CREA, REPOSITONED IN BED. O2 3L NC, SOB NOTED WITH EXERTION, PT HELPED WITH TURNING. RECUPERATES SOON HSE IS BACK ON HER BACK. TOLERATING LIQUIDS WELL, FLUID RESTRICTION WAS DC'D TODAY BY .
--- NOTE | 2020-08-09 23:53 | NUR ---
incontinent of urine, attends changed, coop. on O2 3LNC, spot checks lowest she went was 90%, back to 93-94% adter repositioning
--- NOTE | 2020-08-10 00:15 | NUR ---
awakens easily, no distress, O2 3L NC in place, IV abx infusing.
--- NOTE | 2020-08-10 01:10 | NUR ---
Incontinent of urine, skin care, attends changed. Repositioned,O2 3LNC in place, toleraated better than earlier
--- NOTE | 2020-08-10 03:47 | NUR ---
incontinent of urine, attends change, skin care, barrier cream, O2 3L nc, no sob when turning, tolerated well
--- NOTE | 2020-08-10 03:51 | NUR ---
THIS SHOE COBBLER AND PRIMARY RN STEPHANIE CHANGED PATIENT'S INCONTINENT ATTENDS.
--- NOTE | 2020-08-10 04:28 | NUR ---
pt has been awake off andon. O2 3L NC high flow, lungs dim at bases, sats 90-95%, even when turning anshas tolerated well, sats WNL. Incontinent of urine, attends changed, skin care and barrier cream to jonatan area applied. edema of thighs to ankles present w/o changes, elevated, heel protectors in place. Alert, uses call light appropriately, tolerating liquids well, no n/v, no c/o pain. Pt is to be dc today back to groups home. IV abx completed, 2 SL patent. COop with procedures
--- NOTE | 2020-08-10 04:57 | NUR ---
Incontinent of urine, skin care, barrier cram, attned changed. Repositoned in bed, tolerated well. c/o 6/10 malgorzata back pain, medicated with Tylenol 650mg po. heel protectors in place
--- NOTE | 2020-08-10 06:22 | NUR ---
PATIENT CALLED TO BE CHANGED INCONTINENT ATTENDS. DONE.
--- NOTE | 2020-08-10 07:20 | NUR ---
HANDOFF REPORT RECEIVED FROM PUPPY SITTER RN. PT SLEEPING, LEFT UNDISTURBED.
--- NOTE | 2020-08-10 10:00 | NUR ---
AT 0915 PT SITTING IN CHAIR, PT DROWSY, AROUSABLE TO VOICE BUT FALLING ASLEEP MIDSENTENCE. O2 SATS 94% ON 3L NC, BP 119/62 MAP 76, HR 68, RR 20. LUNG SOUNDS CLEAR. PT CONTINUES TO BE DROWSY AFTER SEVERAL ATTEMPTS TO GET HER TO WAKE UP, CHAIRPERSON ANESTHESIOLOGY ASKED TO CALL DR. MONACO TO COME TO BEDSIDE. BLOOD GLUCOSE CHECKED AND WAS 86. DR. MONACO TO BEDSIDE, PT SLOW TO WAKE UP BUT ANSWERING QUESTIONS AND INTERACTING MORE, DR. STINSON ORDERED ABG TO BE DRAWN. PLANT MAINTENANCE WORKER TO BEDSIDE FOR ABG. PT MORE ALERT, ABLE TO TAKE MORNING MEDICATIONS WITH OUT DIFFICULTY.
--- NOTE | 2020-08-10 13:20 | NUR ---
DISCHARGE INSTRUCTIONS COMPLETED. PT CONSENTED TO FLU VACCINE, GIVEN. CAREGIVER GLENROY NEEDING TO GO HOME TO GET PT CLOTHING AND VAN. PT SITTING IN CHIAR.
--- NOTE | 2020-08-11 09:36 | NUR ---
FAXED CLINICALS/ORDER FOR OUTPATIENT THERAPY TO [facility] OUTPATIENT THERAPY OFFICE [phone]. FAX CONFIRMATION RECEIVED 08/11/20 920AM.
== END 2020-08-10 14:00 | disposition home or self-care (01) | DRG 871 ==
LOC: ED 09:09 → CCU 11:49 → MS 08-07 12:40
PROVIDERS: ADMIT Student in an Organized Health Care Education/Training Program; ATTEND Student in an Organized Health Care Education/Training Program
PROC: 5A09357 Assistance with Respiratory Ventilation, Less than 24 Consecutive Hours, Continuous Positive Airway Pressure (ICD-10-PCS; principal; 2020-08-04)
DX: A41.02 Sepsis due to Methicillin resistant Staphylococcus aureus (principal); J15.212 Pneumonia due to Methicillin resistant Staphylococcus aureus; J96.21 Acute and chronic respiratory failure with hypoxia; J44.0 Chronic obstructive pulmonary disease with (acute) lower respiratory infection; I27.0 Primary pulmonary hypertension; Z20.828 Contact with and (suspected) exposure to other viral communicable diseases; R65.20 Severe sepsis without septic shock; D69.59 Other secondary thrombocytopenia; R39.15 Urgency of urination; K21.9 Gastro-esophageal reflux disease without esophagitis; E78.5 Hyperlipidemia, unspecified; E03.9 Hypothyroidism, unspecified; G89.4 Chronic pain syndrome; F31.9 Bipolar disorder, unspecified; Z99.81 Dependence on supplemental oxygen; Z79.899 Other long term (current) drug therapy; Z79.82 Long term (current) use of aspirin; Z79.51 Long term (current) use of inhaled steroids; Z88.2 Allergy status to sulfonamides; Z88.1 Allergy status to other antibiotic agents; Z88.0 Allergy status to penicillin
CPT/HCPCS: 36415; 36430; 36600; 51702; 71045; 80048; 80053; 80202; 81001; 82803; 83605; 83735; 83880; 85025; 87040; 87070; 87205; 87899; 90686; 93005; 93010; 94640; 94660; 94667; 94668; 94799; 97110; 97116; 97162; 97530; 99284-25; A9270; C9803; J0456; J0692; J0696; J1650; J1940; J2405; J3370; J7030; J7060; J7121; U0003

== ENCOUNTER 2020-10-11 22:30 | Emergency (ER) | payer OTHER ==
[~2020-10-11] VITALS: Ht 139.7 cm; Wt 93.0 kg
[~2020-10-11 22:30] MED LIST changes: +UPTRAVI 1600 MCG PO; +UPTRAVI800 MCG PO
[2020-10-11] MEDS ORDERED: IBUPROFEN400 MG PO (23:08)
[2020-10-11] MEDS ORDERED: SYMBICORT 16010.2 GM INH (23:09)
--- NOTE | 2020-10-12 20:12 | EKG ---
[facility] [address] [facility] [place] [address] Signed Normal sinus rhythm Right atrial enlargement Pulmonary disease pattern Left anterior fascicular block ST \T\ T wave abnormality, consider anterolateral ischemia Abnormal ECG When compared with ECG of 01-AUG-2020 13:00, Left anterior fascicular block is now present Inverted T waves have replaced nonspecific T wave abnormality in Anterior leads T wave inversion less evident in Lateral leads QT has shortened Confirmed by ASA SALAS DO ([id number]) on 10/12/2020 8:12:20 PM Electronically Signed By: ASA SALAS DO 10/12/202011 PATIENT NAME: KEO BARRAZA Electrocardiogram DATE OF : 61 PHYSICIAN: ASA SALAS DO REPORT #: [id number] REPORT IS CONFIDENTIAL AND NOT TO BE RELEASED WITHOUT AUTHORIZATION
== END 2020-10-12 00:01 | disposition home or self-care (01) ==
LOC: ED 22:30
DX: R07.89 Other chest pain (principal); E03.9 Hypothyroidism, unspecified; E66.9 Obesity, unspecified; I10 Essential (primary) hypertension; G47.30 Sleep apnea, unspecified; J44.9 Chronic obstructive pulmonary disease, unspecified; K21.9 Gastro-esophageal reflux disease without esophagitis; Z87.891 Personal history of nicotine dependence; Z88.8 Allergy status to other drugs, medicaments and biological substances; Z88.2 Allergy status to sulfonamides; Z88.1 Allergy status to other antibiotic agents; Z88.0 Allergy status to penicillin; Z79.82 Long term (current) use of aspirin; Z79.899 Other long term (current) drug therapy
CPT/HCPCS: 71045; 80053; 80164; 84484; 85025; 85379; 85610; 85730; 93005; 93010; 96374; 99285-25; J1885

== ENCOUNTER 2021-02-08 00:08 | Emergency (ER) | payer OTHER ==
[~2021-02-08] VITALS: Ht 139.7 cm; Wt 94.3 kg
[~2021-02-08 00:08] MED LIST changes: +IBUPROFEN400 MG PO
== END 2021-02-08 01:37 | disposition home or self-care (01) ==
LOC: ED 00:08
DX: S46.912A Strain of unspecified muscle, fascia and tendon at shoulder and upper arm level, left arm, initial encounter (principal); J06.9 Acute upper respiratory infection, unspecified; X50.1XXA Overexertion from prolonged static or awkward postures, initial encounter; Z87.891 Personal history of nicotine dependence; Z88.8 Allergy status to other drugs, medicaments and biological substances; Z88.0 Allergy status to penicillin; Z88.1 Allergy status to other antibiotic agents; Z88.2 Allergy status to sulfonamides; Z79.899 Other long term (current) drug therapy; Z79.82 Long term (current) use of aspirin
CPT/HCPCS: 71045; 73030; 99283-25

== ENCOUNTER 2021-02-09 05:55 | Emergency (ER) | payer OTHER ==
[~2021-02-09] VITALS: Ht 139.7 cm; Wt 94.3 kg
--- NOTE | 2021-02-09 17:15 | EKG ---
[facility] [address] [facility] [place] [address] Signed Sinus tachycardia Right atrial enlargement Right axis deviation Pulmonary disease pattern Incomplete right bundle branch block Right ventricular hypertrophy ST \T\ T wave abnormality, consider anterolateral ischemia Abnormal ECG When compared with ECG of 11-OCT-2020 22:34, Vent. rate has increased BY 37 BPM Left anterior fascicular block is no longer present QT has lengthened Confirmed by ASA SALAS DO ([id number]) on 02/09/2021 5:15:13 PM Electronically Signed By: ASA SALAS DO 02/09/21 1715 PATIENT NAME: KEO BARRAZA Electrocardiogram DATE OF : 61 PHYSICIAN: ASA SALAS DO REPORT #: [id number] REPORT IS CONFIDENTIAL AND NOT TO BE RELEASED WITHOUT AUTHORIZATION
== END 2021-02-09 10:59 | disposition short-term general hospital (02) ==
LOC: ED 05:55
DX: J18.9 Pneumonia, unspecified organism (principal); R09.02 Hypoxemia; I27.20 Pulmonary hypertension, unspecified; E03.9 Hypothyroidism, unspecified; E66.9 Obesity, unspecified; Z20.822 Contact with and (suspected) exposure to COVID-19; G47.30 Sleep apnea, unspecified; I11.0 Hypertensive heart disease with heart failure; I50.9 Heart failure, unspecified; K21.9 Gastro-esophageal reflux disease without esophagitis; Z87.891 Personal history of nicotine dependence; Z88.8 Allergy status to other drugs, medicaments and biological substances; Z88.0 Allergy status to penicillin; Z88.1 Allergy status to other antibiotic agents; Z88.2 Allergy status to sulfonamides; Z91.018 Allergy to other foods; Z79.899 Other long term (current) drug therapy; Z79.82 Long term (current) use of aspirin
CPT/HCPCS: 71045; 80053; 83605; 83735; 83880; 84484; 85025; 85379; 93005; 93010; 94640; 96365; 96368; 96375; 99285-25; C9803; J0456; J0696; J2930; J3370; J7060; U0003

== ENCOUNTER 2021-02-15 21:14 | Emergency (ER) | payer OTHER ==
[~2021-02-15] VITALS: Ht 139.7 cm; Wt 94.8 kg
[2021-02-15] MEDS ORDERED: DOXYCYCLINE HY100 MG PO (21:50)
[2021-02-15] MEDS ORDERED: CEFDINIR300 MG PO (21:50)
[2021-02-15] MEDS ORDERED: SINGULAIR10 MG PO (21:52)
[2021-02-15] MEDS ORDERED: SYMBICORT 16010.2 GM INH (21:52)
[2021-02-15] MEDS ORDERED: UPTRAVI200 MCG PO (21:52)
[2021-02-15] MEDS ORDERED: FIRST AID ANT28.4 G1 (21:53)
[2021-02-15] MEDS ORDERED: VENTOLIN HFA18 GM INH (21:57)
== END 2021-02-15 23:00 | disposition home or self-care (01) ==
LOC: ED 21:14
DX: R04.0 Epistaxis (principal); E03.9 Hypothyroidism, unspecified; I11.0 Hypertensive heart disease with heart failure; M19.09 Primary osteoarthritis, other specified site; G47.30 Sleep apnea, unspecified; I50.9 Heart failure, unspecified; K21.9 Gastro-esophageal reflux disease without esophagitis; J44.9 Chronic obstructive pulmonary disease, unspecified; Z88.8 Allergy status to other drugs, medicaments and biological substances; Z88.1 Allergy status to other antibiotic agents; Z88.0 Allergy status to penicillin; Z79.82 Long term (current) use of aspirin; Z79.899 Other long term (current) drug therapy
CPT/HCPCS: 30901; 80053; 85025; 99283-25

== ENCOUNTER 2021-03-04 18:21 | Emergency (ER) | payer OTHER ==
[~2021-03-04] VITALS: Ht 139.7 cm; Wt 93.9 kg
[~2021-03-04 18:21] MED LIST changes: +CEFDINIR300 MG PO; +FIRST AID ANT28.4 G1; +UPTRAVI200 MCG PO
[2021-03-04] MEDS ORDERED: SINGULAIR10 MG PO (19:31)
[2021-03-04] MEDS ORDERED: SYMBICORT 16010.2 GM INH (19:32)
[2021-03-04] MEDS ORDERED: UPTRAVI800 MCG PO (19:33)
== END 2021-03-04 20:34 | disposition home or self-care (01) ==
LOC: ED 18:21
DX: R04.0 Epistaxis (principal); J44.9 Chronic obstructive pulmonary disease, unspecified; E03.9 Hypothyroidism, unspecified; E66.9 Obesity, unspecified; I10 Essential (primary) hypertension; M19.90 Unspecified osteoarthritis, unspecified site; G47.30 Sleep apnea, unspecified; I50.9 Heart failure, unspecified; K21.9 Gastro-esophageal reflux disease without esophagitis; Z87.891 Personal history of nicotine dependence; Z88.8 Allergy status to other drugs, medicaments and biological substances; Z88.2 Allergy status to sulfonamides; Z88.1 Allergy status to other antibiotic agents; Z88.0 Allergy status to penicillin; Z79.899 Other long term (current) drug therapy; Z79.82 Long term (current) use of aspirin
CPT/HCPCS: 30903; 99283-25

== ENCOUNTER 2021-03-08 22:38 | Emergency (ER) | payer OTHER ==
[~2021-03-08] VITALS: Ht 139.7 cm; Wt 93.9 kg
== END 2021-03-09 00:23 | disposition home or self-care (01) ==
LOC: ED 22:38
DX: R04.0 Epistaxis (principal); E03.9 Hypothyroidism, unspecified; E66.9 Obesity, unspecified; I11.0 Hypertensive heart disease with heart failure; M19.90 Unspecified osteoarthritis, unspecified site; G47.30 Sleep apnea, unspecified; I50.9 Heart failure, unspecified; K21.9 Gastro-esophageal reflux disease without esophagitis; Z87.891 Personal history of nicotine dependence; Z88.8 Allergy status to other drugs, medicaments and biological substances; Z88.1 Allergy status to other antibiotic agents; Z88.2 Allergy status to sulfonamides; Z88.0 Allergy status to penicillin; Z79.899 Other long term (current) drug therapy
CPT/HCPCS: 30903; 99283-25

== ENCOUNTER 2021-06-11 20:56 | Emergency (ER) | payer OTHER ==
[~2021-06-11] VITALS: Ht 139.7 cm; Wt 93.9 kg
[~2021-06-11 20:56] MED LIST changes: -FIRST AID ANT28.4 G1; +FIRST AID ANT28.4 G1 MT; +OCEAN104 ML NAS; -OCEAN45 ML NAS
--- NOTE | 2021-06-13 13:58 | EKG ---
[facility] [address] [facility] [place] [address] Signed Normal sinus rhythm Right atrial enlargement Right axis deviation Pulmonary disease pattern Right ventricular hypertrophy with repolarization abnormality Nonspecific T wave abnormality Prolonged QT Abnormal ECG When compared with ECG of 09-FEB-2021 06:07, T wave inversion no longer evident in Lateral leads QT has lengthened Confirmed by ASA SALAS DO ([id number]) on 06/13/2021 1:58:19 PM Electronically Signed By: ASA SALAS DO 06/13/21 1358 PATIENT NAME: KEO BARRAZA VIK Electrocardiogram DATE OF : 61 PHYSICIAN: ASA SALAS DO REPORT #: [id number] REPORT IS CONFIDENTIAL AND NOT TO BE RELEASED WITHOUT AUTHORIZATION
== END 2021-06-12 00:45 | disposition home or self-care (01) ==
LOC: ED 20:56
DX: R07.89 Other chest pain (principal); Z20.822 Contact with and (suspected) exposure to COVID-19; F43.10 Post-traumatic stress disorder, unspecified; E03.9 Hypothyroidism, unspecified; E66.9 Obesity, unspecified; I11.0 Hypertensive heart disease with heart failure; M19.90 Unspecified osteoarthritis, unspecified site; G47.30 Sleep apnea, unspecified; J44.9 Chronic obstructive pulmonary disease, unspecified; I50.9 Heart failure, unspecified; K21.9 Gastro-esophageal reflux disease without esophagitis; Z87.891 Personal history of nicotine dependence; Z88.8 Allergy status to other drugs, medicaments and biological substances; Z88.1 Allergy status to other antibiotic agents; Z88.0 Allergy status to penicillin; Z88.2 Allergy status to sulfonamides; Z79.899 Other long term (current) drug therapy; Z79.82 Long term (current) use of aspirin
CPT/HCPCS: 71045; 80053; 84484; 85025; 85379; 93005; 93010; 99285-25; C9803; U0003

== ENCOUNTER 2021-06-14 14:07 | Inpatient (IN) | payer OTHER ==
[~2021-06-14] VITALS: Ht 139.7 cm; Wt 96.3 kg
--- NOTE | 2021-06-14 16:31 | EKG ---
[facility] [address] [facility] [place] [address] Signed Normal sinus rhythm Biatrial enlargement Right axis deviation Right ventricular hypertrophy with repolarization abnormality T wave abnormality, consider inferior ischemia Abnormal ECG When compared with ECG of 11-JUN-2021 21:03, Nonspecific T wave abnormality now evident in Lateral leads QT has shortened Confirmed by GANGA HOPE MD ([id number]) on 06/14/2021 4:31:21 PM Electronically Signed By: GANGA HOPE MD 06/14/21 1631 PATIENT NAME: KEO BARRAZA Electrocardiogram DATE OF : 61 PHYSICIAN: GANGA HOPE MD REPORT #: [id number] REPORT IS CONFIDENTIAL AND NOT TO BE RELEASED WITHOUT AUTHORIZATION
--- NOTE | 2021-06-14 17:35 | NUR ---
55 year old female PATIENT ADMITTED TO CCU VIA STRETCHER UNDER DR. HOPE WITH DX OF PNEUMONIA/CHF. PATIENT HAS HX OF HYPOXIA USE O2 AT HOME AT 3 L NC. PATIENT WAS SEEN IN ED YESTERDAY FOR RESP DISTRESS. UPON ADMIT TO CU PATIENT IS ALERT, ORIENTED AND COOPERATIVE. LIVES AT [facility], HAS HX OF BIPOLAR DISORDER, WITH MULTIPLE MEDICAL PROBLEMS. ADMISSION PROCESS STARTED.
--- NOTE | 2021-06-14 18:25 | NUR ---
DENIES PAIN OR NAUSEA. DINNER ORDERED. HOB ELEVATED. PATIENT ABLE TO TALK IN COMPLETE SENTENCES.WILL START BUMEX GTT ORDERED.
--- NOTE | 2021-06-14 18:43 | NUR ---
O2 INCREASED TO 5 L NC O2 SAT 89. SITTING UP IN BED TO EAT DINNER.
--- NOTE | 2021-06-14 19:23 | NUR ---
UP TO COMMODE TO ATTEMPT TO VOID, UNABLE. VERY SHORT OF BREATH WITH EXERTION. TOOK 100% OF DINNER. REPORT TO NEXT SHIFT.
--- NOTE | 2021-06-14 20:11 | NUR ---
PATIENT UP TO THE BSC TO VOID. PATIENT SOB AND REPORTS FEELING LIGHTHEADED. PATIENT IS A HEAVY 1 PERSON ASSIST. PATIENT VOIDED 200 MLS AND RETURNED TO BED. DISCUSSED WITH . ORDERS FOR AMIN RECEIVED. 16F AMIN PLACED. PATIENT TOLERATED WELL. CLEAR YELLOW URINE NOTED. UA SAMPLE SENT. PATIENT REPORTS DIFFICULTY GETTING A FULL BREATH, RT CALLED FOR NEB. LUNG SOUNDS ARE DIMINISHED IN BASES, CLEAR IN UPPERS. NO EDEMA NOTED. PATIENT DENIED GI CONCERNS. HEADACHE 5/10, PRN TYLNEOL PROVIDED WITH SCHEDULED EVENING MEDICATIONS. NO EDEMA NOTED. PATIENT ASSISTED TO POSITION FOR COMFORT. PM SNACK PROVIDED PER REQUEST. IV BUMEX INFUSING PER ORDER, SITE WNL.
--- NOTE | 2021-06-14 20:38 | NUR ---
PATIENT RECEIVED NEB TREATMENT. REPORTS SLIGHT IMPROVEMENT. RR 24. O2 SAT 93% ON 5L NC.
--- NOTE | 2021-06-14 22:18 | NUR ---
AMIN EMPTIED FOR 900 MLS. PATIENT REQUEST HER IV SITE IN RIGHT HAND BEEN TAKEN OUT DUE TO PAIN. IV INFUSION SWITCHED TO THE LEFT HAND SITE. RIGHT SITE FLUSHED WELL WITHOUT PAIN. LEFT SL.
--- NOTE | 2021-06-14 23:23 | NUR ---
PATIENT REQUESTED A PARTIAL BEDBATH AND ASSISTANCE WITH HER HAIR. JORGE LOW ASSISTED PATIENT.
--- NOTE | 2021-06-15 00:37 | NUR ---
PATIENT PROVIDED WITH DIET SODA PER REQUEST. DISCUSSED FLUID RESTRICTION WITH PATIENT. AGREED THIS WOULD BE HER LAST FLUID FOR THE NIGHT. PATIENT REPORTS IMPROVEMENT IN HER BREATHING, CONTINUES TO HAVE RR 24-26 WITH O2 SATS 94% ON 5L NC. PATIENT ON 5L NC. DENIES CPAP AT THIS TIME, STATES "I DON'T GO TO SLEEP UNTIL WAY LATER, LIKE 2 IN THE MORNING". ENCOURAGED PATIENT TO REST. IV INFUSION PER ORDER, SITE WNL. GOOD URINE OUTPUT. VS STABLE. CALL LIGHT IN REACH. LIGHTS DIMMED.
--- NOTE | 2021-06-15 01:21 | NUR ---
PT CALLED, REQUESTED HER CPAP ON, WITH ASSIST OF RT, CPAP ON, WITH 5L 02 BLED IN, WITH SATS READING 94%. HOB DECREASED PER COMFORT, AND LEGS ELEVATED PER PT REQUEST. CALL LIGHT WITHIN REACH. PT STATES COMFORT.
--- NOTE | 2021-06-15 04:00 | NUR ---
PATIENT TOLERATING HOME CPAP WITH 5L BLEED IN. SLEEPING SOUNDLY. VS STABLE. GOOD URINE OUTPUT. BUMEX PER ORDER, SITE WNL.
--- NOTE | 2021-06-15 06:48 | NUR ---
AMIN EMPTIED. BED WEIGHT DONE. PATIENT ON CPAP, TOLERATING WELL. DENIED ANY NEEDS. IV SITE WNL, BUMEX PER ORDER.
--- NOTE | 2021-06-15 07:28 | NUR ---
REPORT RECIEVED. CXR DONE. PATIENT C/O HANNA. BUMEX GTT INFUSING. AT 0.5 MG/HR, 10 ML/HR.
--- NOTE | 2021-06-15 09:00 | NUR ---
TOOK BREAKFAST WELL.
[2021-06-15] MEDS ORDERED: SF 5000 PLUS51 GM MT (09:08)
[2021-06-15] MEDS ORDERED: TRIPLE ANTIBIO1 EACH TOP (09:10)
--- NOTE | 2021-06-15 09:10 | NUR ---
OOB TO COMMODE WITH ASSIST. AM CARE GIVEN. TOLERATED WELL. LESS SHORT OF BREATH TODAY. BUMEX DRIP CONTINUES. DR. HOPE HAS BEEN HERE TO SEE PATIENT EARLIER.
[2021-06-15] MEDS ORDERED: ASPERCREME76.5 GM TOP (09:13)
--- NOTE | 2021-06-15 09:16 | NUR ---
MED REC COMPLETE
--- NOTE | 2021-06-15 09:29 | NUR ---
Assisted patient with bedside commode. Kathy care was done. Patient had an extra large BM. Assisted patient to the chair, one pa. Call light is in reach.
--- NOTE | 2021-06-15 09:30 | NUR ---
PT RESTING IN BED ON HER SIDE. PT ON THE VAPOTHERM AT THIS TIME AT 40LPM 100% FIO2. SPO2 88-90%. PT REPORTS NO NEEDS AT THIS TIME WHEN ASKED, WILL CONTINUE PLAN OF CARE. CALL LIGHT IN REACH.
--- NOTE | 2021-06-15 10:35 | NUR ---
RESPONDED TO PT CALL LIGHT, PT SITTING IN BEDSIDE RECLINER ON 4L O2 NC. PT SPO2 NOTED TO BE 88%. PT INCREASED TO 5L O2 AT THIS TIME. PT STATES SHE WANTED TO GO BACK TO THE BED TO REST. PT ASSISTED IN GETTING OVER TO BED, WEAK GAIT NOTED. PT NOW IN BED RESTING AND REPORTS NO FURTHER NEEDS. CALL LIGHT IN REACH, BED IN LOWEST POSITION.
--- NOTE | 2021-06-15 11:15 | NUR ---
c/o stomach burning. Maalox 30 ml given.
--- NOTE | 2021-06-15 12:00 | NUR ---
ASSESSMENT DONE. NO CHANGES. REMAINS ON O2 AT 5L NC.
--- NOTE | 2021-06-15 12:20 | NUR ---
PATIENT TOOK LUNCH WELL. STATES SHE FEELS SHE FEELS ABOUT THE SAME SHE DID YESTERDAY. C/O DIZZINESS. BP 100/60. AMIN CATH PATENT. CONTINUES WITH GROSS UPPER EXTREMITIES TREMORS. FACE HAS BEEN FLUSHED
--- NOTE | 2021-06-15 13:00 | NUR ---
PATIENT WAS SLEEPING. WAS UP EARLIER. WILL CALL CAREGIVERS FOR BASELINE OR THEIR TAKE ON NEEDS.
--- NOTE | 2021-06-15 14:48 | NUR ---
LEFT MESSAGE WITH DAGO (CAREGIVER) FOR CALLBACK. RECEIVED A CALL WITHIN 20 MINUTES FROM MP WHO IS THE NEW CAREGIVER FOR PATIENT. HER NUMBER IS [phone]. PATIENT LIVES AT SAME ADDRESS. THEY PLAN ON HER RETURN AT DISCHARGE. SHE HAS BEEN AMBULATORY AND USES A 4WW FOR LONGER DISTANCES. SHE HAS A HOSPITAL BED. USES [facility] FOR OXYGEN. SHE IS ON A LOW SODIUM, LOW CALORIE DIET. THEY HAVE NO NEEDS AT THIS TIME FOR HER TO COME HOME SAFELY. THEY DO ASK THAT WE BE CAREFUL WITH RETURNING HER TO REGULAR FLUID/FOODS THAT IT IS STILL MONITORED PATIENT HAS HISTORY OF OVERDOING AND LAT TIME GAINED 15LBS BACK QUICKLY. THEY UNDERSTAND THEY CAN CALL AND LET US KNOW OF ANY CONCERNS OR NEEDS THEY FEEL NEED ADDRESSED FOR DISCHARGE.
--- NOTE | 2021-06-15 15:30 | NUR ---
is somewhat anxious. ASKING FOR HER FRIEND TO BE CALLED. [facility] CALLED, THEY SAID THEY WOULD NOTIFY FRIEND. VSS. ASSESSMENT UNCHANGED.
--- NOTE | 2021-06-15 18:00 | NUR ---
TOOK DINNER WELL. REMAINS ANXIOUS. DENIES SHORTNESS OF BREATH.
--- NOTE | 2021-06-15 19:30 | NUR ---
SHIFT REPORT RECEIVED FROM MARANDA HAJI. PT CALLED BECAUSE CATHETER HAD LEAKED. PT UP TO CHAIR WITH SBA FOR LINEN CHANGE. PT MOVES WELL. 5L O2 VIA NC IN PLACE. BUMEX DRIP INFUSING AT 0.5 MG/HR. PT PROVIDED WITH SAMIR CRACKERS AND SUGAR FREE PUDDING PER REQUEST. CALL LIGHT WITHIN REACH, NO FURTHER REQUESTS AT THIS TIME.
--- NOTE | 2021-06-15 20:30 | NUR ---
ASSESSMENT COMPLETED. PT IS ALERT/ORIENTED. REPORTS 5/10 PAIN FROM CATHETER, PRN TYLENOL GIVEN. LUNGS CLEAR/DIM, 5L O2 IN PLACE. HR REGULAR. BOWEL TONES ACTIVE. PT UP TO BSC TO HAVE BM, WHILE SITTING ON BSC, PT REPORTED FEELING NAUSEATED, PRN ZOFRAN GIVEN. AMIN PATENT, EXTRA 5ML ADDED TO BALLOON TO SEE IF THAT WOULD HELP LEAKING. SKIN GROSSLY INTACT WITHOUT EDEMA NOTED, SMALL BLISTER NOTED ON UPPER LIP. PT ASSISTED WITH PERICARE/CATH CARE AND THEN PT GOT IN TO BED. PT IS WEAK AND REPORTS DYSPNEA WITH EXERTION. IV SITES INTACT AND PATENT, BUMEX INFUSING PER ORDERS. PT DENIES FURTHER NEEDS, CALL LIGHT WITHIN REACH.
--- NOTE | 2021-06-15 21:30 | NUR ---
PT CALLED TO REPORT THAT HER CATHETER FELT LIKE IT WAS LEAKING AGAIN AND CONTINUED TO FEEL UNCOMFORTABLE. DR. HOPE CALLED AND ORDERS RECEIVED TO D/C CATHETER. PT PROVIDED WITH ANOTHER SNACK OF SUGAR FREE PUDDING AT THIS TIME PER REQUEST, DENIES FURTHER NEEDS.
--- NOTE | 2021-06-15 21:57 | NUR ---
PT CALLED TO REPORT THAT SHE FELT WET. PT HAD BEEN INCONTINENT OF MODERATE AMOUNT OF URINE. PERICARE PROVIDED, ATTENDS AND NEW CHUX PLACED UNDER PT. PT DENIES FURTHER NEEDS, CALL LIGHT WITHIN REACH.
--- NOTE | 2021-06-15 22:36 | NUR ---
PT CALLED AFTER BEING INCONTINENT OF URINE. PERICARE PROVIDED AND NEW ATTENDS/CHUX IN PLACE. PT BOOSTED UP IN BED. DENIES FURTHER NEEDS AT THIS TIME.
--- NOTE | 2021-06-15 23:34 | NUR ---
PT CALLED AFTER LARGE INCONTINENCE OF URINE. PERICARE AND NEW ATTENDS PROVIDED. ASSESSMENT COMPLETED, PT NO LONGER COMPLAINS OF PAIN. REMAINDER OF ASSESSMENT UNCHANGED. PT PROVIDED WITH APPLE JUICE, REMINDED HER THAT SHE IS CLOSE TO HER DAILY LIMIT FOR FLUIDS, PT STATES UNDERSTANDING. NO FURTHER REQUESTS, CALL LIGHT WITHIN REACH.
--- NOTE | 2021-06-16 01:32 | NUR ---
PT CONTINUES TO WATCH TV IN BED. STATED SHE IS STARTING TO GET SLEEPY. ASKED HER IF SHE WANTED HER HOME BIPAP AND SHE STATED NOT YET. NEW BAG OF BUMEX STARTED, CONTINUES AT PREVIOUS RATE. PT DENIES NEEDS AT THIS TIME.
--- NOTE | 2021-06-16 04:17 | NUR ---
PT SLEEPING AT THIS TIME, NO APPARENT DISTRESS. 5L O2 VIA NC REMAINS IN PLACE, RESPIRATIONS EVEN AND UNLABORED, RR:13, SPO2:95%. HR:64. BUMEX CONTINUES TO INFUSE AT 0.5 MG/HR. WILL ALLOW FOR REST AT THIS TIME.
--- NOTE | 2021-06-16 05:28 | NUR ---
PT WAS WOKEN UP BY EXPLOSIVES OPERATOR FOR MORNING LABS. VITAL SIGNS OBTAINED AND STABLE. PT INCONTINENT OF VERY LARGE AMOUNT OF URINE, PERICARE, NEW ATTENDS AND CHUX PROVIDED. OFFERED TO HELP PT MOVE TO CHAIR, BUT SHE REQUESTS TO STAY IN BED AT THIS TIME. NO FURTHER REQUESTS, CALL LIGHT WITHIN REACH.
--- NOTE | 2021-06-16 07:28 | NUR ---
PT CALLED, HAD BEEN INCONTINENT OF LARGE AMOUNT OF URINE, NEW ATTENDS, CHUX, AND PERICARE PROVIDED. STANDING WEIGHT OBTAINED: 94.6KG. PT RETURNED TO BED PER REQUEST AT THIS TIME, DENIES FURTHER NEEDS. CALL LIGHT WITHIN REACH.
--- NOTE | 2021-06-16 07:30 | NUR ---
REPORT RECIEVED. PATIENT IS RESTING IN BED. O2 DECREASED TO 4 L NC.
--- NOTE | 2021-06-16 08:00 | NUR ---
ASSESSMENT DONE. OOB TO CHAIR FOR BREAKFAST, ROUTINE MEDICATION GIVEN. BUMEX GTT DC'D. LASIX PO 40 MG PO GIVEN. TALKED WITH PATIENT ABOUT PLAN OF CARE FOR DAY. INDICATEDS UNDERSTANDING.
--- NOTE | 2021-06-16 09:14 | NUR ---
TRANSFERRED TO BED, RT IN ROOM TO GIVE TREATMENT.
--- NOTE | 2021-06-16 09:35 | NUR ---
DR. HOPE HERE TO SEE PATIENT, TRANSFER ORDERS RECIEVED.
--- NOTE | 2021-06-16 10:40 | NUR ---
Update from Rn. Pt resides at [facility]. Pt uses 02 at home 3l at rest and 4 with activity. Ivy is pts caregiver. Pt will return to [facility] on dc.
--- NOTE | 2021-06-16 10:45 | NUR ---
TRANSFERRED TO MED-SURG VIA BED. REPORT GIVEN.
--- NOTE | 2021-06-16 11:12 | NUR ---
BEDSIDE REPORT FROM [facility]. PT MOVED OVER TO ROOM 110. PT ON N.C., 4L OXYGEN SATURATION 90% PER BEDSIDE OXIMETRY. SHE HAS NO DISTRESS, NO DYSPNEA. LUNCH ORDERED. PT ALERT AND ORIENTED TO SURROUNDINGS. PT IS VERY PLEASANT AT THIS TIME, AND COOPERATIVE WITH CARE.
--- NOTE | 2021-06-16 11:58 | NUR ---
PT RESTING IN BED, R.T. JUST FINISHED NEB TREATMENT. PT ALERT.
--- NOTE | 2021-06-16 14:09 | NUR ---
PATIENT HAD INCONT. VOID. YARI CARE DONE, NEW ATTENDS IN PLACE. PATIENT BOOSTED IN BED. FRESH WATER GIVEN. VITALS AND I&O'S CHARTED. CALL LIGHT IN REACH. NO FURTHER NEEDS AT THIS TIME.
--- NOTE | 2021-06-16 14:15 | NUR ---
NOTIFIED OF PATIENT B/P AT THIS TIME AT NURSES STATION. ASKED IF SHE IS MORE ALERT NOW? YES, PT IS ALERT SITTING UP EATING ICE CREAM FLUIDS WELL WITHIN HER FLUID RESTRICTION.
--- NOTE | 2021-06-16 15:02 | NUR ---
UP DATED BETTY AT HORIZON ON PT STATUS
--- NOTE | 2021-06-16 16:09 | NUR ---
PT RESTING IN BED EYES CLOSED REGULAR RESPIRATIONS, 4L OXYGEN N.C. SATURATING 93% NO DISTRESS NOTED, PT APPEARS TO BE SLEEPING. POSTURE RELAXED.
--- NOTE | 2021-06-16 18:35 | NUR ---
PT TRANSFERED FROM CCU TODAY, SHE HAS BEEN UP TO AMBULATE IN ROOM ONE PERSON CONTACT ASSIST WITH PHYSICAL THERAPY. SHE HAS BEEN ON 4-5L OXYGEN TO MAINTAIN 90-93% OXYGEN SATURATION. SHE HAS BEEN PLEASANT AND COOPERATIVE WITH CARE, SHE IS INCONT. OF URINE AND STOOL. SHE HAS BEEN TIRED AFTER SMALL AMOUNT OF ACTIVITY. SHE HAS HER OWN CPAP IN ROOM.
--- NOTE | 2021-06-16 19:45 | NUR ---
REPORT RECEIVED FROM MARANDA CARMEN. SPO2 90% WITH 5L OXYGEN BY NC IN PLACE. pt TREMULOUS, DENIES NEEDS. CALLED TO ROOM BY MICHELLE PARTIDA AFTER REPORT, pt VOMITTED. PRN ANTONIETTA ADMINSITERED AT THIS TIME. pt HAS NO ADDITIONAL NEEDS. TALKING ON PHONE WITH FRIEND AT THIS TIME.
--- NOTE | 2021-06-16 20:45 | NUR ---
PT CALLED, REQUESTED HER BATHROOM LIGHT ON. NO OTHER NEEDS.
--- NOTE | 2021-06-16 21:45 | NUR ---
CALL LIGHT ANSWERED. SAMIR CRACKERS AND SUGAR FREE MINGO PUDDING PROVIDED. PATIENT BRUSHED HER TEETH AND WASHED HER FACE. V/S AND I&O'S DONE AND CHARTED. 2PA THIS SALT OPERATOR AND PRIMARY RN LYNSEY CHANGED PATIENT'S INCONTINENT ATTENDS. PATIENT REPOSITIONED.
--- NOTE | 2021-06-16 23:30 | NUR ---
PATIENT CALLED. PATIENT ASKED FOR BED BATH. PROVIDED.
--- NOTE | 2021-06-16 23:43 | NUR ---
pt AWAKE RESTING IN BED. SPO2 WNL WITH 5L OXYGEN BY NC IN PLACE. CALL LIGHT IN REACH.
--- NOTE | 2021-06-16 23:54 | NUR ---
CALL LIGHT ANSWERED, pt REQUESTING DIET SPRITE, ALLOTTED FLUID PROVIDED. CALL LIGHT IN REACH. LIGHT ON IN BATHROOM PER REQUEST.
--- NOTE | 2021-06-17 02:34 | NUR ---
pt SLEEPING, EYES CLOSED. BREATHING EQUAL AND UNLABORED. SPO2 94% WITH 5L OXYGEN BY NC IN PLACE. LIGHTS OFF IN ROOM.
--- NOTE | 2021-06-17 05:02 | NUR ---
pt INCONTINENT OF URINE. ATTENDS CHANGED. pt ABLE TO ASSIST WITH CHANGING POSITION. REQUESTING DAILY WEIGHT AT BREAKFAST TIME. VSS. pt REPOSITIONED TO LEFT SIDE WITH PILLOW UNDER RIGHT HIP. LEGS ELEVATED. ASSESSMENT COMPLETE. CRACKLES AUSCULTATED THROUGHOUT LUNG LOBES. SPO2 WNL WITH 5L OXYGEN BY NC IN PLACE.
--- NOTE | 2021-06-17 07:10 | NUR ---
REPORT RECEIVED. PT IN BED WITH EYES CLOSED. RESPIRATIONS EQUAL AND NON-LABORED. 5L HUMIDIFIED NC IN PLACE. CPOX ON. SPO2 95% HR 62. CALL LIGHT IN REACH.
--- NOTE | 2021-06-17 07:34 | NUR ---
PATIENT IS SLEEPING IN BED. CALL LIGHT IN REACH.
--- NOTE | 2021-06-17 09:45 | NUR ---
IN FOR ASSESSMENT. PT SITTING UP IN CHAIR FOR BREAKFAST. NC AT 5L. SPO2 AT 95% LUNGS SOUND CLEAR AND DIM IN BASES. PT IS SLEEPY. THERAPY IN TO WORK WITH PT. MEDICATIONS ADMISNTERED. NO EDEMA PRESENT.
--- NOTE | 2021-06-17 10:46 | NUR ---
Spoke with Dr. Harrison, pt to discharge today. No med changes. 02 remains 2-5L. Called and spoke with Dominique at [facility] and she may return. They would like orders prior to dc. They will transport. Dr. Harrison updated and will complete orders.
--- NOTE | 2021-06-17 11:00 | NUR ---
TITRATED OXYGEN TO 3L NC. PT SPO2 DECREASED TO 89%. INCREASED O2 TO 4L NC. SSPO2 NOW 91%.
--- NOTE | 2021-06-17 11:32 | NUR ---
PT ASSISTED BACK TO BED FROM CHAIR WITH FWW. TOLERATED WELL. RESPITORY THERAPY IN ROOM.
--- NOTE | 2021-06-17 12:40 | NUR ---
WILDLAND FIRE FIGHTER SPECIALIST REPORTS PT IS NOT WAKING TO GET TO CHAIR. ONLY OPENING EYES WHE SPOKEN TO THEN QUICKLY FALLS BACK ASLEEP. DR HOPE NOTIFIED. CXR ORDERED. THIS NURSE TO BEDSIDE. SPOKE LOUD AND PT WAS ABLE TO WAKE UP WITH LOUD SPEACH AND LIGHT TOUCH. PT ENCOURAGE TO SIT IN CHAIR FOR LUNCH. PT ABLE TO WAKE UP AND DENIES DIZZINESS BEFORE STANDING. PT NEEDS LOTS OF CUES TO AMBULATE TO CAHIR. PT STILL SLIGHTLY DROWSY BUT WAKES TO EAT LUNCH. PT ABLE TO STAY AWAKE TO EAT FOOD.IMAGING TO BEDSIDE FOR CXR. PT REQUESTING MORE ICECREAM. PT HAS REACHED FLUID RESTRICTION SO NO ICECREAM WAS PROVIDED. CALL LIGHT IN REACH. VISIBLE FROM NURSING STATION. SPO2 AT 93%.
--- NOTE | 2021-06-17 13:19 | NUR ---
Uses call light for assistance to return to bed. Standby assist with walker to bed. Head of bed slightly elevated for patient comfort. Denies other needs at this time. Call light in reach, bed rails up X2.
--- NOTE | 2021-06-17 15:58 | NUR ---
ROUNDED ON PT. PT SITTING IN BED. DENIES PAIN. 4L NC IN PLACE. ASSESSMENT COMPLETED. PT IS MRE ALERT AND ABLE TO STAY AWAKE. PT REQUESTING HER "CHILL PILL". UNSURE OF WHAT PILL SHE IS REFERING TO. CALL LIGHT IN REACH. DENEIS FURTHER NEEDS.
--- NOTE | 2021-06-17 18:27 | NUR ---
PT UP IN CHAIR FOR DINNER. PT SPO2 AT 89%. TITRATED TO 5L N.C SPO2 NOW 91%. PT IS ALERT AND ORIENTED. CALL LIGHT IN REACH.
--- NOTE | 2021-06-17 19:55 | NUR ---
in to provide pt a new gown and warm wash cloth, no further needs at this time
--- NOTE | 2021-06-17 22:22 | NUR ---
PT PROVIEDED WITH BED BATH PER PT REQUEST, WITH RN COMPLETED BATH AND PT WAS INCONT AT THIS TIME, CHANGED PT AND NEW ATTENDS ON, TASHA PROVIDED NO FURTHER NEEDS
--- NOTE | 2021-06-17 22:53 | NUR ---
Patient in bed watching tv, no distress. Warm blanket provided. Patient has no needs. Personal supplies and call light within reach.
--- NOTE | 2021-06-17 23:47 | NUR ---
in with rn to change pt, new attends on, boosted in bed, no further needs at this time
--- NOTE | 2021-06-18 00:10 | NUR ---
in to provide warm blanket and diet soda
--- NOTE | 2021-06-18 04:55 | NUR ---
Patient in bed sleeping, eyes closed, respirations even and non labored. Patient is on 6L oxygen per oxymask, sp02 per cpox 92%. Patient has no distress noted. Personal supplies and call light within reach.
--- NOTE | 2021-06-18 07:45 | NUR ---
REPORT RECEIVED FROM NIGHT RN AND PT. CARE RESUMED. PT. IS ALERT AND ORIENTED TO ALL BUT PLACE. REORIENTED. PT. STATES WOUND ABOVE LIP IS BLEEDING AND SHE IS PICKING AT IT REPEATEDLY. PT. APPLIED OINTMENT TO AREA. PT. ON 5L NC AND OR SAT IS 92%. PRODUCTIVE COUGH WITH THICK YELLOW SPUTUM. CRACKLES PRESENT IN LLL. ATTENDS DRY. IV SITES WNL AND FLUSH WELL. DISCUSSED DISCHARGE, POC, MEDS. PT. LEFT RESTING WITH CALL LIGHT IN REACH.
[2021-06-18] MEDS ORDERED: LEVOFLOXACIN750 MG PO (08:12)
--- NOTE | 2021-06-18 10:21 | NUR ---
PT ASSISTED IN GETTING DRESSED. 2 IV'S DC'S AND WNL. PT TOLERATED WELL. PT ON 5L NC, IS ALERT AND ORIENTED. WHEELED OUT WITH OWN OXYGEN. HOME MEDICATION SENT WITH PT.
--- NOTE | 2021-06-18 14:00 | NUR ---
Received call from Dominique at [facility]. Pt dropped her sats to mid 80s and required HHN treatment to return to 90 with 5 l. Pt was ambulating and became sob. Spoke with Dr. Harrison and rx written to increase 02 to 3-6 L at rest. Order for low level activity x 2 days. Called Dominique and updated, I will call [facility] to deliver 02 concentrator which delivers up to 10 L and fax them the prescription. Informed if pt is requiring more than 5 L to add 02 tank to 5L concentrator with 1L from tank to make 6L. Called [facility] and updated, faxed Rx.
== END 2021-06-18 10:10 | disposition home or self-care (01) | DRG 291 ==
LOC: ED 14:07 → CCU 17:15 → MS 17:15
PROVIDERS: ADMIT Internal Medicine; ATTEND Internal Medicine
DX: I11.0 Hypertensive heart disease with heart failure (principal); J18.9 Pneumonia, unspecified organism; J44.0 Chronic obstructive pulmonary disease with (acute) lower respiratory infection; Z68.42 Body mass index [BMI] 45.0-49.9, adult; I50.33 Acute on chronic diastolic (congestive) heart failure; Z20.822 Contact with and (suspected) exposure to COVID-19; I27.20 Pulmonary hypertension, unspecified; E66.9 Obesity, unspecified; R39.15 Urgency of urination; K21.9 Gastro-esophageal reflux disease without esophagitis; F31.9 Bipolar disorder, unspecified; G89.4 Chronic pain syndrome; G47.30 Sleep apnea, unspecified; E03.9 Hypothyroidism, unspecified; M19.90 Unspecified osteoarthritis, unspecified site; E78.5 Hyperlipidemia, unspecified; Z99.81 Dependence on supplemental oxygen; Z87.891 Personal history of nicotine dependence; Z88.0 Allergy status to penicillin; Z88.2 Allergy status to sulfonamides; Z88.1 Allergy status to other antibiotic agents; Z88.8 Allergy status to other drugs, medicaments and biological substances; Z79.82 Long term (current) use of aspirin; Z79.899 Other long term (current) drug therapy
CPT/HCPCS: 51702; 71045; 80048; 80053; 81001; 83605; 83735; 84484; 85025; 93005; 93010; 94640; 97110; 97116; 97162; 97166; 99285-25; A9270; A9270-GY; C9803; J1650; J1956; J2405; J3480; J3490; J7060; U0003

== ENCOUNTER 2021-10-09 06:18 | Inpatient (IN) | payer OTHER ==
[~2021-10-09] VITALS: Ht 139.7 cm; Wt 100.0 kg
[~2021-10-09 06:18] MED LIST changes: +ASPERCREME76.5 GM TOP; +LEVOFLOXACIN750 MG PO; +SF 5000 PLUS51 GM MT; +TRIPLE ANTIBIO1 EACH TOP
--- NOTE | 2021-10-09 10:45 | NUR ---
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 TRANSPORTED BY HOUSE FLOAT. PT OXYGEN INCREASED TO 8 L OM IN ROUTE FOR OXYGEN SATURATIONS IN THE MID 80S. PT AWAKENS TO VOICE, BUT FALLS BACK TO A DEEP SLEEP QUICKLY. THIS RN REMAINS AT BEDSIDE.
[2021-10-09] MEDS ORDERED: FUROSEMIDE80 MG PO (10:56)
[2021-10-09] MEDS ORDERED: METOLAZONE2.5 MG PO (10:59)
[2021-10-09] MEDS ORDERED: SINGULAIR10 MG PO (11:02)
[2021-10-09] MEDS ORDERED: VITAMIN C500 M1 PO (11:05)
--- NOTE | 2021-10-09 11:19 | NUR ---
DR SALAS UPDATED ON PT LOW BLOOD PRESSURES, DECREASED ALERTNESS, AND INCREASED NEED FOR SUPPLEMENTAL OXYGEN. CURRENT BLOOD PRESSURE 83/64 (72). SPO2 = 91% ON 8 L OM. ORDERS RECIEVED.
--- NOTE | 2021-10-09 11:39 | NUR ---
SECOND 1 L IV FLUID BOLUS AND ABX NOW INFUSING (SEE EMAR). RT CALLED TO PLACE PT ON BIPAP. PT REMAINS DROWSY, SNORING, BUT AROUSABLE TO VOICE. LUNGS SOUND COARSE IN THE UPPER AIRWAYS AND DIM IN BOTH BASES. BLOOD PRESSURE REMAIN IN THE 80S SYSTOLICALLY. WILL CONNTINUE TO CLOSELY MONITOR.
--- NOTE | 2021-10-09 11:55 | NUR ---
PT NOW ON BIPAP 10/05 FIO2= 75%. SPO2= 94% AT THIS TIME. GX=802. BOLUS INFUSING. WILL CONTINUE TO MONITOR.
--- NOTE | 2021-10-09 12:48 | NUR ---
AMIN CATHETER INSERTED, WELL TOLERATED BY PT. 200 MLS OF CLEAR YELLOW URINE FOR IMMEDIATE RETURN.
--- NOTE | 2021-10-09 13:13 | NUR ---
DR SALAS UPDATED ON PT STATUS. NO NEW ORDERS AT THIS TIME.
[2021-10-09] MEDS ORDERED: FUROSEMIDE40 MG PO (13:26)
[2021-10-09] MEDS ORDERED: IBUPROFEN400 MG PO (13:33)
--- NOTE | 2021-10-09 13:34 | NUR ---
MED REC COMPLETED BY PHARMACY
--- NOTE | 2021-10-09 15:06 | NUR ---
PT IN ROOM SHIVERING. STATES SHE IS COLD. RESPIRATORY RATE IN THE 30S. PT APPEARS DIAPHORETIC. TEMP 98.2 ORALLY. PRN TYLENOL GIVEN AT THIS TIME.
--- NOTE | 2021-10-09 16:15 | NUR ---
JUAN ALLEN CALLED, STATES SHE IS PTS "HEALTH CARE REPRESENTITIVE AND FRIEND" AND ASKED TO TALK WITH PT. PT RESTING WITH EYES CLOSED WITH BIPAP IN PLACE. JUAN ENCORUAGED TO CALL BACK LATER PT IS CURRENTLY RESTING. JUAN VERBALIZES UNDERSTANDING AND STATES SHE WILL CALL BACK AT A LATER TIME. MESSAGE GIVEN TO PTS PRIMARY RN, VEE, WITH RETURN CALL PHONE NUMBER.
--- NOTE | 2021-10-09 16:56 | NUR ---
pt pulled of bipap asking for a break, spo2 decreased to 69% while other oxygen was put in place. once pt was on 15+ L om, saturations increased back to 90. temp= 100.3, rigors noted, rr=38 and complains of being hot. Fine crackles noted in both bases. heart rate back up between 110-120. Pt placed back on Bipap, spo2 = 96% at this time. Dr Costello updated, orders received.
--- NOTE | 2021-10-09 17:01 | NUR ---
Rebecca from [facility] called and updated at this time. Rebecca states that patient information may be given to Kisha Almonte. Rebecca also provided information about pts dietary restrictions.
--- NOTE | 2021-10-09 17:21 | NUR ---
ORAL CARE WAS DONE WITH PT. BI-PAP IS DRYING OUT HER MOUTH VERY MUCH. VANCOMYCIN IS RUNNING.
--- NOTE | 2021-10-09 17:50 | NUR ---
PT A FEW MINUTES AGO HAD A RUN OF SVT. HR UP TO 140'S. MD AWARE.
--- NOTE | 2021-10-09 17:55 | NUR ---
ICE PACKES HAVE BEE APPLIED TP GROIN BILATERALLY AND UNDER BOTH ARM.
--- NOTE | 2021-10-09 18:31 | NUR ---
MD SALAS WAS INFORMED ABOUT FEVER OF 101.5 F, AREA OF REDNESS ON HER LEFT FOREARM, WHICH HAD VANCOMYCIN INFUSING. PT DENIES PAIN AND/OR PRUITUS ON THAT ARM, IV SITE IS ACTUALLY FLUSHING WELL. VANCOMYCIN HAS BEEN STOPPED. PT STILL HAS RIGOR PRESENT.
--- NOTE | 2021-10-09 18:33 | NUR ---
Kisha Trinh, the [facility] health care represenative was updated on patients current condition. Kisha states, "Margarita has been complaining of abdominal pain since Thanksgiving and the staff told her she needed to wait until her next appointment. I am very worried about the care she is recieving there". all questions answered. She will be updated with changes in pt condition.
--- NOTE | 2021-10-09 20:12 | NUR ---
PT REMAINS FEBRILE AT 101.9 AX. PT IS PALE AND SLIGHTLY DIAPHORETIC. DENIES SOB, RR 30S-40S. PSVT TO 140S. URINE OUTPUT 45MLs THIS HOUR. PT IS ALERT AND ORIENTED X4. PT ATTEMPTED TO EAT AND WAS PLACED ON 6L NC. UNABLE TO FEED SELF D/T SEVERE TREMORS. PT WAS ONLY ABLE TO TOLERATE APPROXIMATELY 5 MINS ON NC, DESATURATED TO 83%, PLACED BACK ON BI-PAP AT 65%. LUNGS ARE DIMINISHED WITH FAINT CRACKELS BILATERAL POSTERIOR BASES. UNABLE TO ASCULTATE HEART TONES. RUQ ABDOMINAL TENDERNESS WITH PALPATION, PT DENIES CURRENT PAIN OTHERWISE. DR. LOCO ON UNIT AND UPDATED ON PT CONDITION. NO FURTHER ORDERS AT THIS TIME. WILL CONTINUE TO MONTR.
--- NOTE | 2021-10-09 21:09 | NUR ---
/195EQUESTED BREAK FROM BIPAP AND WAS PLACED ON 15L OXYMASK. PT TOLERATED OXYMASK FOR APPROXIMATELY 15 MINUTES WITH O2 SATS AT 91%, PT BECAME MORE TACHYPNEIC WITH RR LOW 40S AND O2 SATS DECREASED TO 86%. PT UNDERSTOOD NEED TO REPLACE BIPAP AND FiO2 WAS INCREASED FROM 45% TO 60% O2 SATS NOW MAINTAINING AT 96%. UNABLE TO OBTAIN ACCURATE BP FOR LAST HOUR D/T SEVERE TREMORS AND PAIN WITH BP READINGS. LAST ATTEMPT BP READING WAS 195/135. MOUTH MOISTURIZER APPLIED TO ASSIST WITH DRY MOUTH. PT DENIES FURTHER NEEDS AT THIS TIME. WILL CONTINUE TO MONITOR.
--- NOTE | 2021-10-09 22:14 | NUR ---
PT HAS FREQUENT PSVT INTO 140S AT LEAST ONCE EVERY [address] SALAS AND 12.5 MG LOPRESSOR ADMINISTERED. PT IS NOW AFEBRIL WITH AXILLARY TEMP OF 97.8. BODY TREMORS DECREASED AND BP OF 100/68 OBTAINED. WILL CONTINUE TO MONIOTR.
--- NOTE | 2021-10-10 00:07 | NUR ---
PT BECAME TACHYCARDIC INTO THE 170S AND COMPLAINED OF STERNAL CHEST PAIN AND SOB. PT HAS BEEN DIAPHORETIC LOCALIZED TO HER HEAD FOR DURATION OF SHIFT. CHEST PAIN RESOLVED WITHIN 5-10 MINUTES OF ONSET WITHOUT INTERVENTION. EKG COMLETED, PER INITIAL EKG REPORT NEW "INCOMPLETE RBBB, RIGHT VENTRICULAR HYPERTROPHY WITH REPOLARIZATION ABNORMALITY, T WAVE ABNORMALITY, CONSIDER INFEROLATERAL ISCHEMIA" COMPARED TO PRIOR EKG. PT WAS AFEBRILE DURING EVENT, HOWEVER FEVER OF 102.8 AXILLARY DEVELOPED WITHIN THE HOUR. DR. SALAS NOTIFIED AND ORDERS RECIEVED FOR LASIX, LOPRESSOR, ASPRIN, TYLENOL, AND D/C OF IVF. WILL CONTINUE TO MONITOR.
--- NOTE | 2021-10-10 02:30 | NUR ---
PT TRIALED ON HFNC TO HAVE SNACK. PT UNABLE TO MAINTAIN O2 ON HFNC AND PLACED ON CPAP BY RT.
--- NOTE | 2021-10-10 03:00 | NUR ---
PT IS RESTING QUIETLY EYES CLOSED AND TOLERATING CPAP AT THIS TIME. PT'S BP'S ARE 80S/50S POST LASIX PUSH WITH MAPS MAINTAINING ABOVE 65. 125CC UOP THIS HOUR. WILL CONTINUE TO MONITOR.
--- NOTE | 2021-10-10 04:42 | NUR ---
PT'S HAS A VARIABLE HR WITH A RANGE OF 55-110 OVER LAST 2 HOURS. HR FREQUENTLY AND QUICKLY FLUCTUATES IN THIS RANGE. NO PSVT EPISODES NOTED. INTERMITTENT 1ST DEGREE BLOCK WITH FASTER HR. SBP REMAINS IN IN THE 80S WITH MAPS ABOVE 85. UOP ADEQUATE. PT REPORTS SHE "FEELS FINE" AND IS WITHOUT FURTHER CHEST PAIN AND SOB. WILL CONTINUE TO MONITOR.
--- NOTE | 2021-10-10 05:19 | NUR ---
PT REQUESTING WATER AND FOOD. REINFORCED EDUCATION ABOUT FLUID RESTRICTION AND THAT PT HAS MET HER FLUID ALLOTMENT. MOUTH MOISTURIZER PROVIDED. EDUCATED PT ON HER MULTIPLE FAILED ATTEMPTS TO COME OFF BIPAP/CPAP AND THE RISK OF ASPIRATION SHOULD SHE NEED TO QUICKLY GO BACK ON POSITIVE PRESSURE. PT VERBALIZES UNDERSTANDING OF EDUCATION PROVIDED. ASSISTED PT INTO COMFORTABLE POSITION. CALL LIGHT WIHTIN REACH. WILL CONTINUE TO MONITOR.
--- NOTE | 2021-10-10 08:00 | NUR ---
PT IS AFEBRILE AT THIS TIME. PT IS MUCH MORE ALERT AND DID STATE THAT SHE WAS FEELING MUCH BETTER. BP'S SOFT WITH GOOD MAP. OTHER V/S WDL. PT NOW ON OXYMASK AT 15+L AND O2 SATS ARE WDL. ALL LOBES ARE CLEAR, ABD SOUNDS ACTIVE. ABD IS TENDER TO TOUCH IN THE LOWER QUADRANTS THOUG. ABD IS ALSO SOFT TO TOUCH. NO PERIPH. EDEMA NOTED, RADIAL AND PEDIS PULSES +2, PT AAO, OVERALL STRENGTH +5. PT WAS ABLE TO EAT BREAKFAST AND KEEPING HER O2 SATS >91%. URINE OUPUT SEEMS OVERALL UNCHANGED. WILL CONTINUE TO MONITOR.
--- NOTE | 2021-10-10 09:13 | NUR ---
URINE OUTPUT DOES REMAIN UNCHANGED, PT IS DOING WELL ON OXYMASK 15L +. WILL TRY TO TITRATE DOWN ABLE THIS SHIFT.
--- NOTE | 2021-10-10 10:33 | NUR ---
PT WAS PUT BACK ON BI-PAP AFTER A FEW MINUTES ON THE OXYMASK BECAUSE HER RR WENT UP THE LOW 30'S AND HER O2 SATS WERE AT 90%. WILL CONTINUE TO MONITOR.
--- NOTE | 2021-10-10 11:35 | NUR ---
FEATHER WASHER IN ROOM WITH PT NOW.
--- NOTE | 2021-10-10 12:00 | NUR ---
AT THIS TIME PT IS STILL ON BI-PAP AT FIO2 50%. PT DID EAT A FEW BITES OF LUNCH ON THE OXYMASK 15L O2. O2 SATS STARTED TO DECLINE A FEW MINUTES INTO EATING LUNCH. PT ALSO AT THAT TIME STATED THAT SHE IS FEELING SOB. AT THIS TIME, UPPER LOBES ARE CLEAR, LLL IS MUCH MORE DIMINISHED AND TIGHT THAN THIS MORNING, ALL OTHER LOBES ARE DIMINISHED BUT CLEAR. PT NOW HAS NON-PITTING EDEMA IN BOTH HANDS WHICH WAS ALSO NOT PRESENT THIS MORNING. ABDOMEN ALSO SEEMS A BIT MORE FIRM AT THIS TIME THAN THIS MORNING. ABD SOUNDS PRESENT. RADIAL AND PEDIS PULSES +2. TEMP NOW ALSO 99.5 F. PT STILL FLUSHED IN HER FACE. URINE OUTPUT DECLINING FOR THE PAST COUPLE OF HOURS. BP'S ALSO SOFTER THAN EARLIER THIS MORNING. WILL CONTINUE TO MONITOR.
--- NOTE | 2021-10-10 13:02 | NUR ---
MD SALAS WAS JUST NOTIFIED ABOUT ASSEMENT OBSERVATIONS WITH THE 1200 ASSISSMENT. NO NEW ORDERS WERE RECEIVED AT THIS TIME.
--- NOTE | 2021-10-10 13:30 | NUR ---
HR UP TO 140'S AT TIMES. SINUS TACH WITH SOME BEATS OF A-FIB. MD PRESENT FOR SPIKE IN HR. PT WAS JUST TAKEN OFF THE BED CHAPPELL. WILL CONTINUE TO MONTIOR.
--- NOTE | 2021-10-10 14:15 | NUR ---
PT AT THIS TIME BACK ON BI-PAP. PT CANNOT TOLERATE OXYMASK ONLY AT 15L O2. O2 SATS DROPPED TO 87%. WILL CONTINUE TO MONITOR. PT ALSO HAS BEEN TURNED >Q2HRS SINCE START OF SHIFT. PT HOWEVER CANNOT TOLERATE LAYING ON HER LEFT SIDE. PT NOW ON HER RIGHT SIDE AGAIN.
--- NOTE | 2021-10-10 14:57 | NUR ---
URINE OUTPUT HAS SIGNIFICANTLY PICKED UP SINCE LASIX IV WAS GIVEN AT 1424. HR IN THE UPPER 90'S WITH NO SPIKES ABOVE 100 SINCE LASIX WAS GIVEN. BP'S SOFT BUT BETTER. PT REMAINS ON BI-PAP AND IS RESTING COMFORTABLY.
--- NOTE | 2021-10-10 15:39 | NUR ---
VISITOR IN ROOM. PT AWAKE AND STATED SHE IS FEELING A BIT BETTER.
--- NOTE | 2021-10-10 16:32 | NUR ---
URINE OUTPUT STILL GOOD SINCE LASIX WAS GIVEN. BILATERAL LOWER LOBES CLEAR AND SLIGHTLY DIMINISHED AT THIS TIME. EDEMA IN BOTH HANDS UNCHANGED. HR <100, BP'S SOFT BUT MAP IS WDL. PT REMAINS ON BI-PAP SO FAR. OVERALL NO NEW CONCERNS NOTED AT THIS TIME.
--- NOTE | 2021-10-10 17:53 | NUR ---
URINE OUTPUT HAS DROPPED BY QUIET A BIT. PT ATE 100% OF HER DINNER. PT SINCE 1724 OR SO IS ON THE HIGH FLOW NC ON 15L O2 AND ON THE OXYMASK 15L O2 AND HOLDING HER O2 SATS >92%. RR LOW TO UPPER 20'S. PT DENIES SOB.
--- NOTE | 2021-10-10 18:10 | NUR ---
PT AT THIS TIME IS AFEBRILE WITHOUT PRN TYLENOL GIVEN. URINE OUTPUT IS BACK TO WHAT IT WAS BEFORE LASIX WAS GIVEN EARLIER TODAY. BP'S STILL SOFT WITH GOOD MAP. HR JUST AROUND 100. PT HOWEVER DID HAVE A COULPLE OF SINUS TACH EPISODES AGAIN. RR IN THE LOW 20'S. PT ALSO REMAINS ON THE 15L O2 HIGH FLOW NC AND OXY MASK 15L O2 WITH OS SATS AROUND 95%. ONLY NOTE OF CONCERNS IS THAT PT IS VERY FLUSHED IN HER FACE AND HER UPPER TORSO. THIS HAS NOT OCCURED SO FAR WHILE PT WAS AFEBRILE. THIS HAS ONLY OCCURED SO FAR WHEN PT WAS FEBRILE.
--- NOTE | 2021-10-10 20:24 | NUR ---
PT IS FLUSHED FROM HEAD TO UNDER BREASTS AND BILATERAL THIGHS. AFEBRIL AT 98.9 AXILLARY. PT DENIES SOB AND PAIN. BP STABLE, HR 100-145 WITH PSVT, ASYMPTOMATIC. MEDIUM BM.
--- NOTE | 2021-10-10 20:36 | EKG ---
[facility] [address] [facility] [place] [address] Signed Sinus tachycardia Right atrial enlargement Right axis deviation Pulmonary disease pattern Right ventricular hypertrophy Nonspecific T wave abnormality Abnormal ECG When compared with ECG of 14-JUN-2021 14:30, T wave inversion no longer evident in Inferior leads Nonspecific T wave abnormality, improved in Lateral leads QT has lengthened Confirmed by ASA SALAS DO ([id number]) on 10/10/2021 8:36:16 PM Electronically Signed By: ASA SALAS DO 10/10/212035 PATIENT NAME: KEO BARRAZA Electrocardiogram DATE OF : 61 PHYSICIAN: ASA SALAS DO REPORT #: [id number] REPORT IS CONFIDENTIAL AND NOT TO BE RELEASED WITHOUT AUTHORIZATION
--- NOTE | 2021-10-10 20:40 | EKG ---
[facility] [address] [facility] [place] [address] Signed Sinus tachycardia Possible Left atrial enlargement Right axis deviation Incomplete right bundle branch block Right ventricular hypertrophy with repolarization abnormality T wave abnormality, consider inferolateral ischemia Abnormal ECG When compared with ECG of 09-OCT-2021 06:28, (Unconfirmed) T wave inversion now evident in Inferior leads T wave inversion now evident in Lateral leads QT has shortened Confirmed by ASA SALAS DO ([id number]) on 10/10/2021 8:40:04 PM Electronically Signed By: ASA SALAS DO 10/10/212039 PATIENT NAME: KEO BARRAZA Electrocardiogram DATE OF : 61 PHYSICIAN: ASA SALAS DO REPORT #: [id number] REPORT IS CONFIDENTIAL AND NOT TO BE RELEASED WITHOUT AUTHORIZATION
--- NOTE | 2021-10-10 20:52 | NUR ---
PT CALLED AND WHEN RN ENTERED ROOM PT DID NOT RESPOND TO VOICE, LETHARGIC BUT DID RESPOND TO VIGOROUS STIMULATION. BP 88/60, T- 99.8 AX, HR MAX 120, O2 94% ON CPAP 50%. LUNGS DIMINISHED BUT UNCHANGED FROM INITIAL ASSESSMENT. PT WAS ABLE TO WEAKLY SQUEEZE HANDS ON COMAND. NODS YES WHEN ASKED AOBUT SOB. EYES DILATED WITH BRISK REACTION. EPISODE LASTED APPROXIMATELY 30-60 SECONDS. PT NOW RESPONDING TO COMMANDS AND REPORTS IMPROVED SOB. PT STATES THESE EPISODES HAPPEN AT HOME. DR. SALAS NOTIFIED. NO NEW ORDERS. WILL CONTINUE TO MONITOR.
--- NOTE | 2021-10-10 21:56 | NUR ---
CALL LIGHT ON. ASSISTED TO ADJUST AMIN TUBING, PROVIDED A DRINK OF WATER, ASSISTED WITH CPAP MASK. CALL LIGHT WITHIN REACH.
--- NOTE | 2021-10-10 22:05 | NUR ---
CPAP ALARMING. pt PUTTING MASK BACK ON. ASSISTED. pt ASKED IF SHE HAD A FEVER TEMP TAKEN 99.3. NO FURTHER REQUESTS. PRIMARY RN UPDATED.
--- NOTE | 2021-10-10 22:44 | NUR ---
PT COMPLAINT OF 8/10 BACK PAIN. REPOSITIONED IN BED AND PRN TYLENOL ADMINISTERED PER PT REQUEST. MOUTH MOISTURIZER APPLIED FOR COMFORT. WILL CONTINUE TO MONITOR
--- NOTE | 2021-10-11 07:07 | NUR ---
HAIR WASHED, COMBED, AND BRAIDED. DENIES ANY NEEDS AT THIS TIME.
--- NOTE | 2021-10-11 08:00 | NUR ---
PT STATED THIS MORNING THAT SHE WAS FEELING BETTER. PT IS MUCH LESS FLUSHED IN THE FACE AND TORSO THIS MORNING. UPPER LOBES CLEAR, LOWER LOBES HAVE SOME CRACKLES PRESENT. PT IS ON 15L O2 HIGH FLOW NC ONLY, PT DENIES SOB. BP'S BETTER THIS MORNING AND SO IS HER HR SO FAR. BILATERAL HAND EDEMA REMAINS UNCHANGED, HOURLY URINE OUTPUT REMAINS UNCHANGED OVERALL, RADIAL AND PEDIS PULSES +2. OVERALL NO NEW CONCERNS NOTED SO FAR.
--- NOTE | 2021-10-11 09:44 | NUR ---
PT IS SITTING ON BSC. PT HAS HAD A BED BATH AND HAS BEEN SITTING IN THE CHAIR SINCE ABOUT 919. PT IS DOING WELL SO FAR ON 15L O2 HIGH FLOW NC. PT DENIES SOB.
--- NOTE | 2021-10-11 10:17 | NUR ---
PT AT THIS TIME IS REQUIRING ALSO 15L O2 OXYMASK WITH THE HIGH FLOW CANNULA. PT WANTS TO GO BACK TO BED. PT WILL BE PUT BACK ON C-PAP. PT STATED THAT SHE IS SOB.
--- NOTE | 2021-10-11 11:14 | NUR ---
PT IS RESTING IN BED ON C-PAP 12L 50% FIO2. V/S WDL, URINE OUTPUT WDL.
--- NOTE | 2021-10-11 12:00 | NUR ---
V/S WDL, URINE OUTPUT WDL WITH LASIX, LLL STILL HAS SOME CRACKLES PRESENT, OTHER LOBES CLEAR. CAREGIVER IN ROOM FEEDING PT LUNCH. OVERALL NO NEW CONCERNS WERE NOTED WITH THIS ASSESSMENT.
--- NOTE | 2021-10-11 14:00 | NUR ---
CAREGIVER LEFT A LITTLE WHILE AGO. PT RESTING IN BED, PT ON C-PAP 12L 45% FIO2. URINE OUTPUT IS GOOD.
--- NOTE | 2021-10-11 16:05 | NUR ---
PT STILL RESTING IN BED. PT STILL ON C-PAP 12L 40%FIO2. BILATERAL HAND EDEMA HAS INCREASED SOME SINCE THIS MORNING. LOWER LOBES HAVE BOTH CRACKLES PRESENT ONCE MORE. SBP'S SOFT IN THE 90'S WITH GOOD MAP. PT DID HAVE A COUOPLE OF SPIKES IN HR UP TO THE 120'S THIS AFTERNOON. HOWEVER, THESES SPIKES WERE SHORTER THAN YESTERDAY.
--- NOTE | 2021-10-11 18:00 | NUR ---
PT ATE ABOUT 30% OF HER DINNER. V/S WDL. PT BACK ON C-PAP AND WATCHING TV. PT HAD NO NEEDS OR CONCERNS AT THIS TIME.
--- NOTE | 2021-10-12 02:45 | NUR ---
PT NOTIFED RN THAT HER IV WAS PAINFUL. CEPHAPIME INFILTRATED IN RIGHT FA. PHARMACY CALLED AND INSTRUCTED TO PLACE COLD COMPRESS TO AFFECTED AREA. ARM ELEVATED AND COLD COMPRESS APPLIED.
--- NOTE | 2021-10-12 03:12 | NUR ---
ANAEROBIC BLOOD CULTURES POSITIVE FOR GRAM (-) RODS IN BOTH BOTTLES. DR. SALAS NOTIFIED.
--- NOTE | 2021-10-12 07:30 | NUR ---
REPORT RECIEVED, CARE OF PATIENT ASSUMED AT THIS TIME. PT IN ROOM ASLEEP, BREATHING EVEN AND UNLABORED. CALL LIGHT WITHIN REACH. WILL CONTINUE TO MONITOR.
--- NOTE | 2021-10-12 09:08 | NUR ---
MEDICATION ADMINISTRATION AND ASSESSMENT COMPLETED AT THIS TIME. PT ALERT AND ORIENTED. HEART RATE IN THE 60-70 AT REST. PT ATE 65% OF DINNER. ON HIGH FLOW NASAL CANNULA AT 6 L AND ABLE TO MAINTAIN OXYGEN SATURATIONS GREATER THAN 90% WHILE EATING. PLAN OF CARE FOR DAY ESTABLISHED. IV ABX INFUSING. CALL LIGHT WITHIN REACH. WILL CONTINUE TO MONITOR.
--- NOTE | 2021-10-12 10:31 | NUR ---
PT RESTING IN BED. IV ABX INFUSING. CALL LIGHT WITHIN REACH, DENIES ANY NEEDS AT THIS TIME.
--- NOTE | 2021-10-12 11:21 | NUR ---
DR SELBY IN ROOM TO ASSESS PATIENT AT THIS TIME
--- NOTE | 2021-10-12 12:33 | NUR ---
PATIENT TRANSFERED FROM BED TO CHAIR FOR LUNCH. FRESH ICE WATER PROVIDED. LINENS CHANGED. CALL LIGHT IN EASY REACH
--- NOTE | 2021-10-12 12:58 | NUR ---
PT UP IN CHAIR, TALKING ON PHONE. MEDICATIONS ADMINISTERED. CALL LIGHT WITHIN REACH. WILL CONTINUE TO MONITOR.
--- NOTE | 2021-10-12 14:36 | NUR ---
2PA, PATIENT TO BSC. PATIENT UNABLE TO HAVE BM, BACK TO BED. HEAD ELEVATED, PILLOWS UNDER ARMS. CALL LIGHT IN EASY REACH
--- NOTE | 2021-10-12 15:00 | NUR ---
dr trent updated on variblity in patients heart rate. Orders received (see emar). Report given to special machine operator Shawna. PT transported via hospital bed to room 111 by this RN. Pt transported on telemetry and on 6 L of supplemental oxygen.
--- NOTE | 2021-10-12 15:30 | NUR ---
Patient arrived to medical floor from CCU. Patient alert and oriented x4/ Patient currently on 7.5L oxygen per nc, respirations even and non labored. Patient denies pain at this time. Lozano intact and patent, clear yellow urine noted. Patient is on tele, heart rate in the 60's. Patient oriented to room and call light. No current needs.
--- NOTE | 2021-10-12 15:44 | NUR ---
RT in to see patient. Oxygen increased to 12L per nc as pt's oxygen decreased to 85% on the 7.5L. Patient repositioned, hob elevated.
--- NOTE | 2021-10-12 15:57 | NUR ---
Dr. Costello made aware of bp 94/46. No new orders.
--- NOTE | 2021-10-12 18:44 | NUR ---
PATIENT SITTING UP IN BED, VISITOR IN ROOM. VITALS AND I&O'S CHARTED. CALL LIGHT IN REACH. NO FURTHER NEEDS AT THIS TIME.
--- NOTE | 2021-10-12 19:30 | NUR ---
REPORT RECEIVED FROM MARANDA SALEH. pt RESTING IN BED. COMPLAINS OF ITCHY SKIN ON BACK, REQUESTING BED BATH TONIGHT, DISCUSSED PLAN FOR EVENING MEDICATIONS AND VITAL SIGNS, NO IMMEDIATE NEEDS. CALL LIGHT IN REACH.
--- NOTE | 2021-10-12 19:45 | NUR ---
CALL LIGHT ANSWERED. PATIENT WANTING HER BACK AND FRONT WIPE WITH WARM WASH CLOTH. DONE.
--- NOTE | 2021-10-12 22:10 | NUR ---
pt RESTING IN BED AWAKE WATCHING MOVIE. HORIZON STAFF MEMBER IN ROOM. ASSESSMENT COMPLETE. pt DENIES PAIN. AMIN CARE COMPLETE. REPOSITIONED IN BED. PO MEDICATIONS ADMINISTERED. IV SITE FLUSHED WNL, IV ANTIBIOTICS INFUSING WNL. PARTIAL BED BATH. REDNESS NOTED UNDER RIGHT SIDE PANNUS. DESENEX POWDER APPLIED. CALL LIGHT IN REACH.
--- NOTE | 2021-10-12 22:44 | NUR ---
PATIENT ASKED FOR ICE CREAM. PRIMARY RN NOTIFIED. PROVIDED.
--- NOTE | 2021-10-12 22:45 | NUR ---
THIS DIRECTOR DATA PROCESSING DID AMIN CARE. CLEANED PATIENT'S LOWER ABDOMEN FOLDS AND APPLIED POWDER BY PRIMARY RN LYNSEY.
--- NOTE | 2021-10-13 00:38 | NUR ---
CHECKED ON Pt. RESTING IN BED WITH EYES CLOSED, BREATHING EQUAL AND UNLABORED. AMIN DRAINING CLEAR YELLOW URINE. 12L OXYGEN BY NC IN PLACE.
--- NOTE | 2021-10-13 02:09 | NUR ---
IV PUMP ALARMING. DISTAL AIR, LINE BACK PRIMED. pt RESTING IN BED WITH EYES CLOSED. BREATHING UNLABORED. AMIN DRAINING.
--- NOTE | 2021-10-13 03:00 | NUR ---
IV PUMP ALARMING, IV ANTIBIOTIC COMPLETE. IV SL WNL. pt RESTING IN BED WITH EYES CLOSED. AWAKENS TO RN IN ROOM. DENIES NEEDS.
--- NOTE | 2021-10-13 06:00 | NUR ---
WARHEAD MAINTENANCE SPECIALIST IN ROOM. pt AWAKE RESTING IN BED. ABLE TO TITRATE OXYGEN WHILE AWAKE TO 6L OXYGEN, SPO2 DROPS TO 90% AT LOWEST, pt FALLS ASLEEP, CLOSING EYES SPO2 DROPS TO 89% WHILE ASLEEP. TITRATED TO 9L OXYGEN TO MAINTAIN SPO2 AT 92%. pt AWAKENS TO VOICE. SCHEDULED THYROID MEDICATION ADMINISTERED. pt ASSESSMENT COMPLETE. pt CLOSING EYES REQUESTING TO REST. CALL LIGHT IN REACH.
--- NOTE | 2021-10-13 06:27 | NUR ---
pt RESTED WELL THROUGHOUT SHIFT. AMIN CATHETER DRAINING WNL. FLUID RESTRICTION IN PLACE, pt TOLERATED WELL. TITRATED TO 9L OXYGEN BY NC THIS SHIFT WHILE SLEEPING. pt USES CALL LIGHT APPROPRIATELY.
--- NOTE | 2021-10-13 08:11 | NUR ---
PT AWAKE IN BED. WARM CLOTH GIVEN FOR FACE. WHITE BOARD UPDATED. CALL LIGHT WITHIN REACH.
--- NOTE | 2021-10-13 09:18 | NUR ---
Patient sitting up in chair eating breakfast, no distress. Patient reports she slept well and is feeling better today. Patient is on 6.5L of oxygen per nc, respirations are non labored. Lozano intact, patent with clear yellow urine. Patient has no current needs. Personal supplies and call light within reach.
--- NOTE | 2021-10-13 10:00 | NUR ---
Spoke with Margarita and she states she lives at [facility]. She uses a walker and 02 at 2-5 L depending on activity and time of day. Pt denies needs for further DME. Plans on return to [facility] on discharge. Pts caregiver is Rebecca Bailey [phone].
--- NOTE | 2021-10-13 13:41 | NUR ---
PT ASLEEP IN BED. CALL LIGHT WITHIN REACH. NO FURTHER NEEDS AT THIS TIME
--- NOTE | 2021-10-13 19:15 | NUR ---
REPORT RECEIVED FROM MARANDA SALEH. pt SLEEPING IN BED WITH HEAD OF BED ELEVATED. HOB LOWERED FOR COMFORT. 6.5 L OXYGEN BY NC IN PLACE. CALL LIGHT IN REACH. pt CLOSING EYES RNS LEAVE ROOM.
--- NOTE | 2021-10-13 22:00 | NUR ---
ASSISTED PRIMARY RN LYNSEY. V/S AND I&O'S DONE. YARI/AMIN AND PANNI CARE DONE. PATIENT REPOSITIONED.
--- NOTE | 2021-10-13 22:15 | NUR ---
pt RESTING IN BED WITH EYES CLOSED. AWAKENS TO VOICE. VS COMPLETE. 6.5 L OXYGEN BY NC IN PLACE. SCHEDULED MEDICATIONS ADMINISTERED. ALLOTTED ICE WATER PROVIDED. ASSESSMENT COMPLETE. pt DENIES PAIN. AMIN CARE COMPLETE. REDNESS UNDER PANNUS FOLDS BILATERALLY. SKIN CLEANED WITH SOAP AND WATER, DRIED, AND DESENEX POWDER IN PLACE. REPOSITIONED IN BED WITH 2PA. CALL LIGHT IN REACH. LIGHTS OFF IN ROOM PER REQUEST. IV ALEENA WNL.
--- NOTE | 2021-10-14 00:45 | NUR ---
CHECKED ON pt. RESTING IN BED WITH EYES CLOSED. BREATHING UNLABORED. LIGHTS OFF IN ROOM. OXYGEN 6.5L NC IN PLACE.
--- NOTE | 2021-10-14 04:00 | NUR ---
CALL LIGHT ANSWERED. DIET SPRITE PROVIDED REQUESTED. ASSESSMENT COMPLETE. pt RATES PAIN 8/10 IN RIGHT LOWER ABD/PANNUS AREA. PRN TYLENOL ADMINISTERED. ASSISTED TO REPOSITION IN BED WITH PILLOW UNDER RIGHT SIDE. VSS. SPO2 91% UPON AWAKENING WITH 6.5 L OXYGEN BY NC IN PLACE. FOELY EMPTIED, CLEAR YELLOW URINE. CALL LIGHT IN REACH. NO ADDITIONAL NEEDS.
--- NOTE | 2021-10-14 06:48 | NUR ---
pt SLEEPING, AWAKENS TO VOICE FOR SCHEDULED MEDICATION ADMINISTRATION. WARM BLANKET PROVIDED. NO ADDITIONAL REQUESTS.
--- NOTE | 2021-10-14 07:30 | NUR ---
Shift report received from MARANDA Crain, pt resting in bed w/ call light in reach and eyes closed, RR even and unlabored on 6.5L via NC
--- NOTE | 2021-10-14 09:00 | NUR ---
Pt sitting up in chair w/ call light in reach, eating breakfast. Morning assesment complete, meds given, and IV abx hung and infusing per provider orders. Pt denies any other needs at this time.
--- NOTE | 2021-10-14 10:30 | NUR ---
Spoke with Margarita. States she is breathing and feels better today. Remains on 6.5 L 02. Hair is being washed by aid with cap. Pt is enjoying this. Denies needs.
--- NOTE | 2021-10-14 11:00 | NUR ---
Pt working w/ PT & OT no needs at this time
--- NOTE | 2021-10-14 13:30 | NUR ---
Pt sitting up in bed safely w/ call light in reach. One time dose of IV Lasix and PO Potassium given per provider's orders. Pt denies any needs at this time
--- NOTE | 2021-10-14 14:26 | NUR ---
Patient is in bed with call light in reach.
--- NOTE | 2021-10-14 14:27 | NUR ---
Patient recieved bedbath assistence.
--- NOTE | 2021-10-14 17:47 | NUR ---
Patient is sitting in chair with warm blanket. Call light is in reach.
--- NOTE | 2021-10-14 18:00 | NUR ---
Pt resting in bed safely w/ call light in reach, no needs at this time
--- NOTE | 2021-10-14 19:15 | NUR ---
BEDSIDE REPORT FROM KISHORE RN, PT IN ROOM ACROSS FROM RN STATION, CALL LIGHT IN REACH - DENIES NEEDS AT THIS TIME, ORINETED TO NEW RN - AMIN DRAINING, IV SL, 02 TITRATED BY RT - DOWN IMPROVING 4L NC. CHRONIC O2 USE. FLUID RESTRICTION CONFIRMED.
--- NOTE | 2021-10-14 21:00 | NUR ---
DR HOPE AWARE OF LOW BP AND NO HOLDS/PARAMETERS ON DEC. RN WILL PASS ON IN AM TO HOLD/CHECK WITH PHARMACY.
--- NOTE | 2021-10-14 21:30 | NUR ---
pt inc of loose bm, rn assisted pt to bsc for cleaning and linen change. pt fearful of falling, reassured. skin excoriated in folds, cleaned, dryed and powder applied. 1 person assist transfer back to bed, call light in reach. denies other needs.
--- NOTE | 2021-10-14 22:30 | NUR ---
PT IS INCONT OF LOOSE STOOL, IN WITH RN TO CLEAN UP PT, NEW CHUX AND ATTENDS IN PLACE, NO FURTHER NEEDS AT THIS TIME
--- NOTE | 2021-10-15 01:10 | NUR ---
PT EYES CLOSED, RESTING IN BED, CALL LIGHT IN REACH.
--- NOTE | 2021-10-15 04:49 | NUR ---
PT RESTING EYES CLOSED, ACROSS FROM RN STATION, CALL LIGHT IN REACH - 5 LNC O2.
--- NOTE | 2021-10-15 06:46 | NUR ---
PT LINEN CHANGE WITH ATTENDS AND AMIN/YARI CARE. INC OF LOOSE YELLOW STOOL.
--- NOTE | 2021-10-15 07:10 | NUR ---
Report from Milady Moore RN. Paient resting in bed with eyes closed, respirations even and unlabored. Call light in reach.
--- NOTE | 2021-10-15 07:13 | NUR ---
Report from Milady Moore RN. Patient resting in bed, eyes closed, respirations even and unlabored. Call light in reach, bed rails up X2.
--- NOTE | 2021-10-15 08:20 | NUR ---
PATIENT CALLS FOR ASSIST TO BEDSIDE COMMODE. 1 PERSON ASSIST TO COMMODE. STATES SHE WOULD LIKE TO SIT FOR A FEW MINUTES. CALL LIGHT IN REACH.
--- NOTE | 2021-10-15 10:31 | NUR ---
Patient is sitting in chair and amezcua was emptied.
--- NOTE | 2021-10-15 10:56 | NUR ---
Sitting up in recliner. Denies pain at this time. AM medications administered. IV site leaking, new IV started. Tolerated without complaint of pain or discomfort. IV antibiotics initiated. Assessment completed at this time. OT in room to work with patient at this time as well.
--- NOTE | 2021-10-15 11:37 | NUR ---
Sitting in recliner, feet elevated. Skin care to Pannus completed. Tolerated well. Desenex applied. Lozano catheter DC'd, catheter intact.
--- NOTE | 2021-10-15 12:25 | NUR ---
Spoke with caregiver, Rebecca, States she has spoken with Human Service Technician this AM and states they usually give her a diuretic when she is requiring higher rates of O2 to get her back to her baseline of 3L/min per NC at rest. Will notify Dr. Harrison.
--- NOTE | 2021-10-15 13:47 | NUR ---
PT SITTING IN CHAIR, TV ON AND EATING ICE CREAM.PT STATES, "ICE CREAM MAKES ME FEEL BETTER"! PT PLEASANT, GAVE BLESSING, PT MENTIONED SHE WAS A LITTLE CHILLED AND WOULD LIKE A WARM BLANKET. MARANDA ARZATE RESPONDED
--- NOTE | 2021-10-15 14:06 | NUR ---
PATIENT C/O HEADACHE 03/09. SEE EMAR. NOTIFIED OF LOW BP BY AIDE, RECHECKED MANUALLY BY THIS NURSE. BP OF 94/58 AT THIS TIME. ASYMPTOMATIC.
--- NOTE | 2021-10-15 18:05 | NUR ---
Sitting up in bed, eating supper. States she is having tooth pain. No break to tooth noted. Will continue to monitor.
--- NOTE | 2021-10-15 18:44 | NUR ---
Patient's pulse was taken mauanlly by a nurse and came up to be 45. Patient's nurse has been notified. Call light is in reach.
--- NOTE | 2021-10-15 18:56 | NUR ---
Heartrate 48 at this time, radially. CHecked by this nurse. Dr. Harrison notified.
--- NOTE | 2021-10-15 18:58 | NUR ---
NAT Harrison/Jeremiah Navarro, RN, to hold evening metoprolol.
--- NOTE | 2021-10-15 19:15 | NUR ---
SHIFT REPORT RECEIVED FROM ROSARIO LOW. PT RESTING IN BED, RR EVEN, UNLABORED. CALL LIGHT IN REACH.
--- NOTE | 2021-10-15 21:40 | NUR ---
PT CALLED ASKING TO SWAP HER WATER FOR SPRITE. GAVE PT 250MLS OF SPRITE AND 50MLS OF WATER TO REPLACE THE 300MLS OF WATER FOR THE REST OF THE NIGHT. PT DENIES FURTHER NEEDS. CALL LIGHT IS CLOSE.
--- NOTE | 2021-10-15 21:53 | NUR ---
ASSESSMENT, VS AND I&O COMPLETED. PT ORIENTED TO ALL BUT EVENTS. PT DENIES PAIN. IV WNL, CDI, FLUSHED WELL. LUNGS CLEAR IN UPPER LOBES AND DIM IN LOWER LOBES. SCHEDULED MEDS PROVIDED. CMS INTACT. NC @ 4L. ABD SOFT, NONTENDER, BOWEL TONES ACTIVE. ICE WATER PROVIDED. FLUID RESTRICTION EDUCATION PROVIDED. NO OTHER NEEDS. CALL LIGHT IN REACH.
--- NOTE | 2021-10-15 23:53 | NUR ---
PT RESTING IN BED. RR EVEN, UNLABORED. NC @ 4L. CALL LIGHT IN REACH.
--- NOTE | 2021-10-16 01:59 | NUR ---
PT RESTING IN BED. RR EVEN, UNLABORED. NC @ 4L. CALL LIGHT IN REACH.
--- NOTE | 2021-10-16 03:18 | NUR ---
PT UP TO BSC, BRIEFS CHANGED. BEDDING CHNAGED.ASSESSMENT COMPLETED. IV WNL. LUNGS CLEAR IN UPPER LOBES AND DIM IN LOWER LOBES. PT EDUCATION PROVIDED ABOUT FLUID RESTRICTION. NO OTHER NEEDS AT THIS TIME. CALL LIGHT IN REACH. NC @ 4L.
--- NOTE | 2021-10-16 06:01 | NUR ---
PT UP TO BSC AND BACK TO BED. VS AND I&O COMPLETED. IV WNL. CALL LIGHT IN REACH. NC @ 3L.
--- NOTE | 2021-10-16 06:12 | NUR ---
SCHEDULED MED PROVIDED. NC @ 4L. NO OTHER NEEDS. CALL LIGHT IN REACH.
--- NOTE | 2021-10-16 08:59 | NUR ---
AM medications administered, assessment completed. Patient awake and alert this AM. decreased O2 to 3L/min per NC this AM by MARANDA Pérez. Patient tolerating well. Remains bradycardic, metoprolol held, Dr. Harrison notified. Denies other needs, call light in reach, bed rails up X2.
--- NOTE | 2021-10-16 09:52 | NUR ---
PER AM MEETING AND DISCUSSION WITH DR. HOPE PATIENT MAY DISCHARGE TO HOME TODAY. LM FOR BETTY WILLIAMSON AT [facility] TO UPDATE.
[2021-10-16] MEDS ORDERED: CEPHALEXIN500 M1 PO (10:19)
--- NOTE | 2021-10-16 11:01 | NUR ---
Patient is saying that she's thirsty. She had 473mls from breakfast. Call light is in reach.
--- NOTE | 2021-10-16 11:42 | NUR ---
PT SITTING UP IN BED WATCHING TV. PT SMILED AND WAVED ME IN. SHE INFORMED ME THAT SHE WILL DC TODAY, AND SEEMED VERY EXCITED. SAID SHE IS FEELING MUCH BETTER. HAD GOOD VISIT, GAVE BLESSING. PT WISHED ME A YANG DOMENICO. WILL FOLLOW NEEDED
--- NOTE | 2021-10-16 12:25 | NUR ---
DC instructions and prescription given to Rebecca, ronny. Verbalizes understanding. Taken to POV in wheelchair with staff at side, O2 in place.
== END 2021-10-16 12:25 | disposition home or self-care (01) | DRG 871 ==
LOC: ED 06:18 → CCU 10:25 → MS 10:25
PROVIDERS: ADMIT Student in an Organized Health Care Education/Training Program; ATTEND Student in an Organized Health Care Education/Training Program
PROC: 5A09357 Assistance with Respiratory Ventilation, Less than 24 Consecutive Hours, Continuous Positive Airway Pressure (ICD-10-PCS; principal; 2021-10-09)
DX: A41.51 Sepsis due to Escherichia coli [E. coli] (principal); J96.21 Acute and chronic respiratory failure with hypoxia; N12 Tubulo-interstitial nephritis, not specified as acute or chronic; N17.9 Acute kidney failure, unspecified; I47.1 Supraventricular tachycardia; R65.20 Severe sepsis without septic shock; K21.9 Gastro-esophageal reflux disease without esophagitis; E03.9 Hypothyroidism, unspecified; G47.33 Obstructive sleep apnea (adult) (pediatric); Z20.822 Contact with and (suspected) exposure to COVID-19; R62.50 Unspecified lack of expected normal physiological development in childhood; I27.20 Pulmonary hypertension, unspecified; Z88.1 Allergy status to other antibiotic agents; Z88.2 Allergy status to sulfonamides; Z88.0 Allergy status to penicillin; Z91.030 Bee allergy status; F31.9 Bipolar disorder, unspecified; F43.10 Post-traumatic stress disorder, unspecified; E66.9 Obesity, unspecified; I50.9 Heart failure, unspecified; I10 Essential (primary) hypertension; J44.9 Chronic obstructive pulmonary disease, unspecified; Z87.891 Personal history of nicotine dependence; Z79.899 Other long term (current) drug therapy; Z79.82 Long term (current) use of aspirin; Z88.8 Allergy status to other drugs, medicaments and biological substances
CPT/HCPCS: 71045; 74176; 80048; 80053; 81001; 82803; 83605; 83735; 83880; 84484; 85025; 87040; 87070; 87088; 87205; 93005; 93010; 94640; 94660; 94760; 97110; 97116; 97162; 97166; 97530; 97535; C9803; J0692; J0696; J0878; J1650; J1940; J2405; J3370; J3475; J7060; J7121; U0003

== ENCOUNTER 2021-10-30 09:31 | Emergency (ER) | payer OTHER ==
[~2021-10-30] VITALS: Ht 139.7 cm; Wt 99.9 kg
[~2021-10-30 09:31] MED LIST changes: +CEPHALEXIN500 M1 PO; +METOLAZONE2.5 MG PO
[2021-10-30] MEDS ORDERED: LEVOFLOXACIN500 MG PO (12:38)
[2021-10-30] MEDS ORDERED: MAGNESIUM CITR296 ML PO (12:38)
--- NOTE | 2021-10-31 07:44 | EKG ---
[facility] [address] [facility] [place] [address] Signed Normal sinus rhythm Right atrial enlargement Right axis deviation Pulmonary disease pattern Right ventricular hypertrophy with repolarization abnormality Nonspecific T wave abnormality Prolonged QT Abnormal ECG No previous ECGs available Confirmed by GANGA HOPE MD ([id number]) on 10/31/2021 7:43:58 AM Electronically Signed By: GANGA HOPE MD 10/31/21 0744 PATIENT NAME: BARRAZAKEO MAY Electrocardiogram DATE OF : 61 PHYSICIAN: GANGA HOPE MD REPORT #: [id number] REPORT IS CONFIDENTIAL AND NOT TO BE RELEASED WITHOUT AUTHORIZATION
== END 2021-10-30 13:14 | disposition home or self-care (01) ==
LOC: ED 09:31
DX: J18.9 Pneumonia, unspecified organism (principal); K59.00 Constipation, unspecified; Z20.822 Contact with and (suspected) exposure to COVID-19; F43.10 Post-traumatic stress disorder, unspecified; E03.9 Hypothyroidism, unspecified; E66.9 Obesity, unspecified; I11.0 Hypertensive heart disease with heart failure; M19.90 Unspecified osteoarthritis, unspecified site; G47.30 Sleep apnea, unspecified; I50.9 Heart failure, unspecified; K21.9 Gastro-esophageal reflux disease without esophagitis; Z87.891 Personal history of nicotine dependence; Z88.8 Allergy status to other drugs, medicaments and biological substances; Z88.1 Allergy status to other antibiotic agents; Z88.2 Allergy status to sulfonamides; Z88.0 Allergy status to penicillin; Z79.82 Long term (current) use of aspirin; Z79.899 Other long term (current) drug therapy
CPT/HCPCS: 36600; 71045; 74018; 82803; 83690; 83880; 84484; 85025; 85379; 93005; 93010; 99285-25; C9803; U0003

== ENCOUNTER 2021-10-31 17:46 | Emergency (ER) | payer OTHER ==
[~2021-10-31] VITALS: Ht 139.7 cm; Wt 99.9 kg
[~2021-10-31 17:46] MED LIST changes: +LEVOFLOXACIN500 MG PO; +MAGNESIUM CITR296 ML PO
== END 2021-10-31 19:46 | disposition home or self-care (01) ==
LOC: ED 17:46
DX: R04.0 Epistaxis (principal); J18.9 Pneumonia, unspecified organism; R04.2 Hemoptysis; Z87.891 Personal history of nicotine dependence; Z88.8 Allergy status to other drugs, medicaments and biological substances; Z88.1 Allergy status to other antibiotic agents; Z88.2 Allergy status to sulfonamides; Z88.0 Allergy status to penicillin; Z79.899 Other long term (current) drug therapy; Z79.82 Long term (current) use of aspirin
CPT/HCPCS: 80053; 85025; 85610; 85730; 86850; 86900; 86901; 96374; 99284-25; J2405; J7040

== ENCOUNTER 2021-12-15 00:28 | Emergency (ER) | payer OTHER ==
[~2021-12-15] VITALS: Ht 139.7 cm; Wt 102.6 kg
[2021-12-15] MEDS ORDERED: BUMETANIDE2 MG PO (01:10)
[2021-12-15] MEDS ORDERED: KLOR-CON20 MEQ PO (01:55)
[2021-12-15] MEDS ORDERED: SPIRONOLACTONE50 MG PO (01:57)
[2021-12-15] MEDS ORDERED: TADALAFIL20 MG PO (02:06)
[2021-12-15] MEDS ORDERED: TORSEMIDE20 MG PO (02:06)
--- NOTE | 2021-12-15 07:21 | EKG ---
[facility] [address] [facility] [place] [address] Signed Normal sinus rhythm Right atrial enlargement Right axis deviation Pulmonary disease pattern Right ventricular hypertrophy with repolarization abnormality Nonspecific T wave abnormality Abnormal ECG When compared with ECG of 30-OCT-2021 09:32, T wave inversion more evident in Inferior leads Nonspecific T wave abnormality now evident in Lateral leads Confirmed by GANGA HOPE MD ([id number]) on 12/15/2021 7:21:01 AM Electronically Signed By: GANGA HOPE MD 12/15/21 0721 PATIENT NAME: KEO BARRAZA Electrocardiogram DATE OF : 61 PHYSICIAN: GANGA HOPE MD REPORT #: [id number] REPORT IS CONFIDENTIAL AND NOT TO BE RELEASED WITHOUT AUTHORIZATION
== END 2021-12-15 01:52 | disposition home or self-care (01) ==
LOC: ED 00:28
DX: I50.9 Heart failure, unspecified (principal); I11.0 Hypertensive heart disease with heart failure; E03.9 Hypothyroidism, unspecified; E66.9 Obesity, unspecified; M19.90 Unspecified osteoarthritis, unspecified site; G47.30 Sleep apnea, unspecified; Z87.891 Personal history of nicotine dependence; Z88.1 Allergy status to other antibiotic agents; Z88.8 Allergy status to other drugs, medicaments and biological substances; Z88.2 Allergy status to sulfonamides; Z88.0 Allergy status to penicillin; Z91.018 Allergy to other foods; Z79.82 Long term (current) use of aspirin; Z79.899 Other long term (current) drug therapy; Z79.51 Long term (current) use of inhaled steroids
CPT/HCPCS: 36415; 71045; 80053; 82803; 83880; 84484; 85025; 93005; 93010; 96374; 99285-25; J1940

== ENCOUNTER 2022-03-01 19:45 | Inpatient (IN) | payer OTHER ==
[~2022-03-01] VITALS: Ht 139.7 cm; Wt 105.5 kg
[~2022-03-01 19:45] MED LIST changes: +BUMETANIDE2 MG PO; +KLOR-CON20 MEQ PO; +TADALAFIL20 MG PO; +TORSEMIDE20 MG PO; +ULTRAM50 MG PO
--- NOTE | 2022-03-01 22:25 | NUR ---
PT ADMITTED TO CCU ROOM 127 FROM ED, FOR ACUTE CHF. ARRIVES ON BIPAP WITH RT, TRANSFERRED OVER TO BED BY DRAW SHEET. PT IS AROUSABLE BUT SOMEWHAT DROWSY. SPO2 ON BIPAP 16/8 50% IS 92%. RR 16. RESP LOOK SLIGHTLY LABORED. LUNGS HAVE CRACKLES IN BASES, LEFT MORE THAN RIGHT.
--- NOTE | 2022-03-01 23:05 | NUR ---
BUMEX DRIP STARTED AT 0.5MG/HR. PT RESTING WITH EYES CLOSED, RESP SLIGHTLY LABORED, WEARING BIPAP. SPO2 98%, RR 15.
--- NOTE | 2022-03-01 23:51 | NUR ---
PT TAKEN OFF BIPAP FOR MEDS AND SIPS OF WATER. PLACED ON OXYMASK 4L, INITIALLY SATS DROPPED QUICKLY DOWN TO 83% THEN CLIMBED UP TO 88% AND STAYED THERE. OXYMASK TURNED UP TO 8L AND SATS UP TO 90%.
--- NOTE | 2022-03-02 02:28 | NUR ---
PT WOKE UP AND REMOVED BIPAP TO TAKE SOME SIPS OF WATER. ASSISTED WITH PLACING BIPAP BACK ON, DENIES FURTHER NEEDS.
--- NOTE | 2022-03-02 04:33 | NUR ---
IN TO DO ASSESSMENT, PT IS SLEEPING AND AWAKENS EASILY. BIPAP REMOVED FOR SIPS OF WATER. PT PLACED ON OXYMASK 8L, SATS DOWN TO 88-90%. ASSESSMENT DONE. STILL SOME CRACKLES IN BASES OF LUNGS BILAT. BUMEX DRIP CONT TO INFUSE AT 0.5MG/HR. URINE OUTPUT HAS BEEN 750ML SINCE IT WAS STARTED, OVER A PERIOD OF ABOUT FIVE HOURS.
--- NOTE | 2022-03-02 06:30 | NUR ---
PT HAS BEEN SLEEPING WITH OXYMASK 8L ON, SPO2 90-92%. PT CONT TO BE SLEEPY, DOES AWAKEN EASILY BUT GOES BACK TO SLEEP QUICKLY. TOOK LEVAQUIN PILL THEN WENT BACK TO SLEEP.
--- NOTE | 2022-03-02 07:30 | NUR ---
REPORT RECIEVED. ECHO BEING DONE AT BEDSIDE. IS CURRENTLY ON OXYMASK AT 8 L. DENIES SHORTNESS OF BREATH.
--- NOTE | 2022-03-02 08:00 | NUR ---
ASSESSMENT DONE. TALKED WITH PATIENT ABOUT POC OF DAY, INDICATES UNDERSTANDING.
--- NOTE | 2022-03-02 08:15 | NUR ---
SITTNG UP IN BED FOR BREAKFAST. O2 CHANGED FROM OXYMASK TO NC AT 6 L IN ORDER FOR PATIENT TO EAT BREAKFAST. O2 SAT ON 6 L NC, 87-88. RT HERE TO CHANGE O2 SOURCE TO HIHG-FLOW, THIS DONE PER RT AND O2 SATS TO 94 ON 8 LITER HIGH-FLOW. PATIENT STATES SHE FEELS TIRED.
[2022-03-02] MEDS ORDERED: POTASSIUM CHLO20 ME1 PO (08:32)
[2022-03-02] MEDS ORDERED: SPIRONOLACTONE25 MG PO (08:34)
--- NOTE | 2022-03-02 09:00 | NUR ---
NAPPING. BIPAP REAPPLIED, I-16, E-8. FIO2-50. AMIN CATH PATENT WITH CLEAR YELLOW URINE. BUMEX GTT INFUSING AT 0.5 MG/HR, EQUALS 10 ML/HR. NO DISTRESS NOTED. DR. HOPE IN EARLIER TO ASSESS PATIENT. PATIENT TOOK BFREAKFAST WELL.
--- NOTE | 2022-03-02 09:21 | NUR ---
MED REC COMPLETE
--- NOTE | 2022-03-02 10:25 | NUR ---
PATIENT NOW ON 7L HIGH FLOW PER MARANDA HAJI
--- NOTE | 2022-03-02 10:30 | NUR ---
Attempted to see pt, she requests I call Neda Villa her cg for assessment.
--- NOTE | 2022-03-02 11:50 | NUR ---
SITTING UP IN BED FOR LUNCH. CONTIUNES WITH TREMORS, TREMORS INCREASE WHEN EATING. PATIENT STATES SHE IF FEELING BETTER. ASSESSMENT UNCHANGED.
--- NOTE | 2022-03-02 12:30 | NUR ---
TOOK LUNCH WELL. SPONGE BATH GIVEN THEN TRANSFERRED TO CHAIR WITH ASSIST. USED WALKER FOR TRANSFER. INCREASED WOB WITH EXERTION. O2 SAT ON 8 L HIGH FLOW O2. O2 SAT 94.
--- NOTE | 2022-03-02 14:30 | NUR ---
BACK TO BED WITH ASSIST.
--- NOTE | 2022-03-02 16:16 | NUR ---
ASSESSMENT UNCHANGED. REMAINS ON BUMEX GTT AT 0.5 MG/HR
--- NOTE | 2022-03-02 17:45 | NUR ---
TOOK DINNER WELL. STATES SHE FEELS BETTER THIS EVENING. NO CHANGES. BUMEX GTT CONTINUES AT 0.5 MG/HR AND O2 HIGH FLOW AT 8 LITERS. HOB IS ELEVATED WATCHING TV.
--- NOTE | 2022-03-02 19:39 | NUR ---
REPORT RECEIVED FROM ALEXANDRU RN, WILL CONTINUE PLAN OF CARE.
--- NOTE | 2022-03-02 20:05 | NUR ---
PT RESTING IN BED ON 8L O2 HIGHFLOW NC AT THIS TIME. PT AWAKE AND ALERT AND REPORTS NO NEEDS AT THIS TIME. BUMEX DRIP INFUSING AT ORDERED RATE, AMIN DRAINING CLEAR YELLOW URINE, WILL CONTINUE PLAN OF CARE.
--- NOTE | 2022-03-02 21:10 | NUR ---
PT RESTING IN BED AWAKE AND ALERT ON THE BIPAP AT 50% FIO2, AT 16/8. SPO2 100%. BUMEX DRIP INFUSING AT ORDERED RATE. VITALS TAKEN (SEE CHART). PT THEN PLACED ON 8L O2 HIGHFLOW NC. PT REPORTS MILD SHORTNESS OF BREATH AT REST AND REPORTS 5/10 LEFT SIDE PAIN WHICH SHE STATES FEELS LIKE A CRAMP. PRN PAIN MEDICATION REQUESTED. SCHEDULED MEDICATIONS ADMINISTERED AT THIS TIME ALONG WITH PRN TRAMADOL (SEE MAR). ASSESSMENT THEN COMPLETED. PT ALERT AND ORIENTED X4, LUNGS CLEAR IN UPPER LOBES AND CLEAR/DIMINISHED IN THE BASES. ACTIVE BOWEL TONES PRESENT, ABDOMEN SOFT. HEART RYTHM REGULAR. TRACE EDEMA IN THE LOWER EXTREMITIES BILATERALLY. RADIAL AND PEDAL PULSES STRONG, PT REPORTS BASELINE NUMBNESS AND TINGLING IN LOWER LEGS/FEET BILATERALLY. PT REPORTS NO FURTHER NEEDS AT THIS TIME WHEN ASKED AND WAS PLACED BACK ON THE BIPAP ON THE PREVIOUS SETTINGS. SPO2 100%, BUMEX INFUSINGS, CALL LIGHT IN REACH, PT RESTING IN BED WATCHING TV, AMIN DRAINING CLEAR YELLOW URINE, WILL CONTINUE PLAN OF CARE.
--- NOTE | 2022-03-02 22:15 | NUR ---
PT SLEEPING IN BED AT THIS TIME ON THE BIPAP, SETTINGS UNCHANGED. BUMEX DRIP INFUSING ORDERED. PT IN NO APPARENT DISTRESS AND WAS LEFT UNDISTURBED. RESPIRATIONS EVEN AND UNLABORED AT THIS TIME, SPO2 100%, AMIN DRAINING, WILL CONTINUE PLAN OF CARE.
--- NOTE | 2022-03-02 22:49 | NUR ---
PT REQUESTED TO BE TAKEN OFF THE BIPAP AT THIS TIME. PT PLACED ON 8L O2 HIGHFLOW NC, SPO2 91-92%. PT REPORTS NO FURTHER NEEDS AT THIS TIME, WILL CONTINUE PLAN OF CARE. CALL LIGHT IN REACH, BED IN LOWEST POSITION, BUMEX DRIP INFUSING.
--- NOTE | 2022-03-02 23:35 | NUR ---
PT LAYING IN BED AWAKE AND ALERT ON 8L O2 HIGHFLOW NC, BUMEX DRIP INFUSING AT ORDERED RATE. VITALS TAKEN AND ASSESSMENT COMPLETED (SEE CHART). PT PLACED ON BIPAP AFTERWARDS ON PREVIOUS SETTINGS. PT REPORTS NO FURTHER NEEDS AT THIS TIME WHEN ASKED AND REMAINS RESTING IN BED WATCHING TV. WILL CONTINUE PLAN OF CARE. CALL LIGHT IN REACH. .
--- NOTE | 2022-03-03 02:05 | NUR ---
PT LAYING IN BED AWAKE ON THE BIPAP, IVF INFUSING. PT REQUESTED TO TAKE A BREAK FROM THE BIPAP, PT PLACED ON 8L O2 HIGHFLOW NC AT THIS TIME, SPO2 97%. PT REPORTS NO FURTHER NEEDS AT THIS TIME, WILL CONTINUE PLAN OF CARE. CALL LIGHT IN REACH.
--- NOTE | 2022-03-03 02:39 | NUR ---
PT PLACED BACK ON THE BIPAP AT THIS TIME ON ITS PREVIOUS SETTINGS. SPO2 97%. PT REPORTS NO NEEDS WHEN ASKED, BUMEX INFUSING ORDERED, CALL LIGHT IN REACH, WILL CONTINUE PLAN OF CARE.
--- NOTE | 2022-03-03 03:19 | NUR ---
PT USED CALL LIGHT. PT LAYING IN BED ON THE BIPAP ON AT PREVIOUS SETTINGS. PT STATED SHE WAS HAVING RIGHT ARM/HAND PAIN AND REQUESTED PRN PAIN MEDICATION. VITALS TAKEN, PRN TYLENOL THEN ADMINISTERED FOR PAIN (SEE MAR). PT ASSESSMENT THEN COMPLETED (SEE CHART). PT REPORTS NO FURTHER NEEDS AFTERWARDS, PILLOWS REPOSITIONED AROUND PT FOR COMOFRT. BIPAP THEN PLACED BACK ON AT PREVIOUS SETTINGS, SPO2 99%. PT REPORTS NO FURTHER NEEDS WHEN ASKED, CALL LIGHT IN REACH, WILL CONTINUE PLAN OF CARE.
--- NOTE | 2022-03-03 04:46 | NUR ---
PT SLEEPING IN BED ON THE BIPAP. SPO2 100%. NEW BAG OF BUMEX STARTED AND NOW INFUSING AT ORDERED RATE (SEE MAR). PT IN NO APPARENT DISTRESS AT THIS TIME, RESPIRATIONS EVEN AND UNLABORED, PT LEFT UNDISTURBED, WILL CONTINUE PLAN OF CARE.
--- NOTE | 2022-03-03 05:56 | NUR ---
CALL LIGHT USED, PT REQUESTED TO HAVE BIPAP OFF. MARANDA PURCELL PLACED PT ON 8L O2 HIGHFLOW NC. THIS RN ADMINISTERED SCHEDULED MEDICATIONS (SEE MAR). BUMEX DRIP STILL INFUSING AT ORDERED RATE. PT REPORTS NO FURTHER NEEDS AFTERWARDS AND WAS PROVIDED WITH ICE WATER. CALL LIGHT IN REACH, WILL CONTINUE PLAN OF CARE.
--- NOTE | 2022-03-03 06:10 | NUR ---
DR HOPE UPDATED ON PT'S LAB VALUES REGARDING A POTASSIUM OF 3.2 AND PRELIMINARY URINE CULTURES SHOWING GRAM NEGATIVE RODS. WILL CONTINUE PLAN OF CARE.
--- NOTE | 2022-03-03 06:38 | NUR ---
PT SITTING IN BED ON 8L O2 NC, IV BUMEX INFUSING ORDERED. SPO2 93-96%. PT PLACED BACK ON THE BIPAP AT THIS TIME ON PREVIOUS SETTINGS, SPO2 NOW 98%. PT REPORTS NO FURTHER NEEDS AT THIS TIME WHEN ASKED, WILL CONTINUE PLAN OF CARE. CALL LIGHT IN REACH.
--- NOTE | 2022-03-03 07:30 | NUR ---
REPORT RECIEVED. PATIENT IS ASLEEP ON BIPAP. NO DISTRESS NOTED. AMIN CATH PATENT, BUMEX GTT INFUSING.
--- NOTE | 2022-03-03 08:00 | NUR ---
WOKE FOR ASSESSMENT, DENIES PAIN. WILL BE TRANSFERRED TO MED-SURG TODAY.
--- NOTE | 2022-03-03 08:15 | NUR ---
ROUTINE MEDICATIONS GIVEN.
--- NOTE | 2022-03-03 08:31 | NUR ---
VITALS AND I&OS CHARTED. PATIENT NOW ON HIGH FLOW NC, EATING BREAKFAST IN BED. FACE AND HANDS WASHED, AMIN EMPTIED.
--- NOTE | 2022-03-03 08:45 | NUR ---
Spoke with Margarita, she will move to the medical floor today when space opens. Feeling better. CG not present.
--- NOTE | 2022-03-03 09:00 | NUR ---
MIGUEL A GTT DC'D. TORSAMIDE AND SPIRONALACTONE PO GIVEN. KCL GTT INFUSING. TOOK BREAKFAST WELL. TELE#6 APPLIED.
--- NOTE | 2022-03-03 10:00 | NUR ---
BED BATH GIVEN. PATIENT C/O DISCOMFORT WHEN CLEANING UNDER LEFT BREAST, UNDER LEFT IN CREASE THERE IS SMALL OPEN AREA, PATIENT STATES SHE USUALLY USES BABY POWDER OR CORN STARTCH UNDER BREAST. SMALL PAPER TOWEL PLACED UNDER BOTH BREAST TO KEEP SKIN AWAY FROM SKIN.
--- NOTE | 2022-03-03 11:50 | NUR ---
PATIENT UP IN CHAIR, EATING LUNCH. CALL LIG IN EASY REACH
--- NOTE | 2022-03-03 11:53 | NUR ---
SITTING UP IN CHAIR, IS NOW EATING LUNCH. WILL KEEP PATIENT IN ROOM 127 FOR NOW HOUSE CONVENIENCE. K RIDER CONTINUES TO INFUSE. BRENNAN PATENT. HIGH FLOW NC O2 REMAINS AT 8 L.
--- NOTE | 2022-03-03 12:45 | NUR ---
TOOK LUNCH WELL. COMFORTALBE IN CHAIR. BRENNAN PATENT.
--- NOTE | 2022-03-03 14:00 | NUR ---
BACK TO BED WITH ASSIST. MINIMAL SHORTNESS OF BREATH WITH EXERTION.
--- NOTE | 2022-03-03 14:25 | NUR ---
PT SITTING IN CHAIR, AWAKENS EASILY TO THE SOUND OF MY VOICE. THANKED ME FOR VISITING. SAID SHE FEELS A LITTLE BETTER. REQUESTED PRAYER, WILL FOLLOW
--- NOTE | 2022-03-03 14:45 | NUR ---
C/O RIGHT UPPER ARM PAIN. ARM IS WRAPPED WITH WARM BLANKET. PATIENT RATES PAIN 7/10. TYLENOL 650 MG PO GIVEN. ARMS BOTH ELEVATED ON PILLOW.
--- NOTE | 2022-03-03 15:59 | NUR ---
CONTINUES WITH RIGHT ARM PAIN AT DELTOID AREA. PATIENT STATES IT IS LIKE LITTLE NEEDLES IN ARM AND HAS THE SAME FEELING IN HER RIGHT THUMB. ULTRAM 50 MG PO GIVEN. CMS TO ARM IS INTACT. DR. MONACO AWARE. ORDERS RECIEVED.
--- NOTE | 2022-03-03 17:37 | NUR ---
po kcl given. DENIES ARM PAIN NOW.
--- NOTE | 2022-03-03 19:25 | NUR ---
REPORT RECEIVED FROM ALEXANDRU RN, WILL CONTINUE PLAN OF CARE.
--- NOTE | 2022-03-03 20:31 | NUR ---
CALL LIGHT USED BY PT. PT LAYING IN BED AWAKE AND ALERT ON 7L O2 NC, PT REQUESTED A BED BATH AT THIS TIME. VITALS TAKEN AND ASSESSMENT COMPLETED AT THIS TIME (SEE CHART). PT ALERT AND ORIENTED X3, HEART RYTHM REGULAR, LUNGS CLEAR IN UPPER LOBES AND DIMINISHED IN THE BASES, PT DENIES SHORTNESS OF BREATH OR PAIN AT THIS TIME. ABDOMEN ROUND, SOFT, ACTIVE BOWEL TONES PRESENT. PT DENIES NUMBNESS OR TINGLING TO UPPER EXTREMITIES AND LOWER EXTREMITIES WHEN ASKED. STRON RADIAL AND PEDAL PULSES PRESENT, TRACE EDEMA NOTED IN UPPER AND LOWER EXTREMITIES BILATERALLY. BED BATH DONE AFTER ASSESSMENT AND NEW LINENS/GOWN PLACED AFTERWARDS. PT PLACED UP TO 8L O2 NC AFTERWARDS TO MAINTAIN SPO2 ABOVE 90%. SCHEDULED MEDICATIONS THEN ADMINISTERED (SEE MAR). PT PROVIDED WITH JUICE AFTERWARDS AND REPORTS NO FURTHER NEEDS WHEN ASKED. PT REMAINS RESTING IN BED, CALL LIGHT IN REACH, BED IN LOWEST POSITION, WILL CONTINUE PLAN OF CARE.
--- NOTE | 2022-03-03 20:50 | NUR ---
RT IN PT'S ROOM TO GIVE SCHEDULED TREATMENTS (SEE MAR). RT INFORMED THIS RN THAT PT WAS PLACED ON THE BIPAP FOR HER BREATHING TREATMENTS. PT REMAINS ON THE BIPAP AT THIS TIME, SPO2 99%, WILL CONTINUE PLAN OF CARE.
--- NOTE | 2022-03-03 21:10 | NUR ---
PT LAYING IN BED RESTING ON THE BIPAP. SPO2 99%. PT REPORTS NO NEEDS AT THIS TIME AND IS WATCHING TV, WILL CONTINUE PLAN OF CARE. CALL LIGHT IN REACH.
--- NOTE | 2022-03-03 22:58 | NUR ---
PT USED CALL LIGHT, MARANDA ORTEZ IN RN NEELIMA REMOVED BIPAP AND PLACED PT ON 8L O2 HIGHFLOW NC PER PT'S REQUEST. THIS RN INFORMED THAT PT WAS HAVING RIGHT UPPER ARM PAIN AND REQUESTED HER PRN TOPICAL ASPERCREME AND LIDOCAINE (SEE MAR). BOTH APPLIED TO PT'S RIGHT UPPER ARM. PT REPORTS IMPROVEMENT IN PAIN AFTER APPLICATION AND REPORTS NO FURTHER NEEDS AT THIS TIME. PT NOW RESTING IN BED ON 8L O2 HIGHFLOW NC, CALL LIGHT IN REACH, WILL CONTINUE PLAN OF CARE.
--- NOTE | 2022-03-04 01:11 | NUR ---
ANSWERED PT'S CALL LIGHT PT REPORTS IT IS "TOO WARM" IN ROOM. ASKED ME TO TURN THERMOSTAT DOWN, COMLIED WITH REQUEST. ALSO ASKED TO DRINK SOME WATER, TOOK BIPAP MASK OFF AND GAVE PT SIPS OF WATER, PLACED BACK TO FACE. DENIES OTHER REQUESTS.
--- NOTE | 2022-03-04 02:05 | NUR ---
PT USED CALL LIGHT, PT RESTING IN BED ON THE BIPAP. PT REQUESTED THE BIPAP OFF TO DRINK WATER. AFTERWARDS PT STATED SHE COULD NOT SLEEP, PT ASKED IF SHE COULD LEAVE THE BIPAP OFF TO SLEEP. PT NOW ON 8L O2 HIGHFLOW NC, SPO2 97%. PT REPORTS NO FURTHER NEEDS AT THIS TIME WHEN ASKED, WILL CONTINUE PLAN OF CARE. CALL LIGHT IN REACH.
--- NOTE | 2022-03-04 03:20 | NUR ---
ANSWERED PT'S CALL LIGHT. REPORTS SHE IS COLD, TURNED THERMOSTAT BACK UP FOR PT, AND PROVIDED WARM BLANKETS. DENIES OTHER REQUESTS OR NEEDS.
--- NOTE | 2022-03-04 04:20 | NUR ---
PT LAYING IN BED SLEEPING AT THIS TIME. 8L O2 HIGHFLOW NC IN PLACE, SPO2 98-99%. PT RESPIRATIONS EVEN AND UNLABORED, PT IN NO APPARENT DISTRESS AND WAS LEFT UNDISTURBED, WILL CONTINUE PLAN OF CARE. CALL LIGHT IN REACH.
--- NOTE | 2022-03-04 04:52 | NUR ---
CALL LIGHT USED BY PT. PT LAYING IN BED AWAKE AND ALERT ON 8L 02 HIGHFLOW NC. PT REQUESTED WATER AND ALSO REPORTS HAVING 6/10 PAIN IN HER RIGHT UPPER ARM. PT REQUESTED PRN PAIN MEDICATION AND TOPICAL PRN MEDICATIONS. WATER PROVIDED AND PRN TYLENOL AND TOPICAL LIDOCAINE AND ASPERCREME APPLIED TO RIGHT UPPER ARM. VITALS THEN TAKEN AND ASSESSMENT COMPLETED. PT DENIES SHORTNESS OF BREATH WHEN ASKED. LUNGS CLEAR IN UPPER LOBES WITH SPORADIC FINE CRACKLES PRESENT IN THE BASES. PT REPORTS NO FURTHER NEEDS AT THIS TIME WHEN ASKED, AMIN DRAININ CLEAR YELLOW URINE, WILL CONTINUE PLAN OF CARE. CALL LIGHT IN REACH, BED IN LOWEST POSITION.
--- NOTE | 2022-03-04 05:55 | NUR ---
PT LAYING IN BED RESTING AWAKE AND ALERT ON 8L O2 HIGH FLOW NC. SPO2 96%, PT DENIES SHORTNESS OF BREATH AND PAIN AT THIS TIME. SCHEDULED MEDICATIONS ADMINISTERED (SEE DEC). PT REPORTS NO FURTHER NEEDS AFTERWARDS, MORNING WEIGHT OBTAINED VIA BED AND WAS 105.5 KG. WILL CONTINUE PLAN OF CARE. CALL LIGHT IN REACH, BED IN LOWEST POSITION.
--- NOTE | 2022-03-04 07:41 | NUR ---
REPORT RECIEVED, CARE OF PT ASSUMED AT THIS TIME. PT RESTING IN BED, ALERT AND ORIENTED. RT IN ROOM AT THIS TIME TO ADMINISTER BREATHING TX. CALL LIGHT WITHIN REACH.
--- NOTE | 2022-03-04 08:30 | NUR ---
Spoke with Margarita, she is up in a chair eating breakfast. NC in place. States she feels well. Will discuss plan in [address] Hubbard.
--- NOTE | 2022-03-04 08:32 | NUR ---
ASSESSMENT AND MEDICATION ADMINISTRATION COMPLETED. PT ALERT AND ORIENTED, ANSWERING ALL QUESTIONS APPROPRIATELY. PT DENIES PAIN. LUNGS SOUNDS CLEAR THROUGH OUT. RESPIRATIONS EVEN AND UNLABORED. PT UP IN CHAIR, EATING BREAKFAST. PLAN OF CARE FOR DAY ESTABLISHED. CALL LIGHT WITHIN REACH. WILL CONTINUE TO MONITOR.
--- NOTE | 2022-03-04 08:36 | NUR ---
PATIENT SBA WITH FWW TO CHAIR FOR BREAKFAST. BEDBATH GIVEN AND LINENS CHANGED. AMIN EMPTIED. CALL LIGHT IN EASY REACH. NO OTHER NEEDS AT THIS TIME
--- NOTE | 2022-03-04 09:57 | NUR ---
DR MONACO IN ROOM TO ASSESS PT. PLAN ESTABLISHED TO DC AMIN CATHETER AND HAVE THE PT WORK WITH OT. ALL QUESTIONS ANSWERED. CALL LIGHT WITHIN REACH. WILL CONTINUE TO MONITOR.
--- NOTE | 2022-03-04 11:03 | NUR ---
PATIENT UP TO BSC FOR VOID. PATIENT ALSO HAD UNMEASURED VOID IN BED. NEW LINENS ON BED
--- NOTE | 2022-03-04 11:17 | NUR ---
REPORT RECEIVED FROM MARANDA BAXTER. AWAITING PTS ARRIVAL TO MED/SURG.
--- NOTE | 2022-03-04 11:45 | NUR ---
REPORT GIVEN TO MARANDA SEVILLA ON THE MEDICAL FLOOR. PT TRANSPORTED VIA HOSPITAL BED ON 4 L NC. ALL BELONGINGS TRANSPORTED WITH PT.
--- NOTE | 2022-03-04 11:48 | NUR ---
PT ARRIVED FROM CCU BY BED. PT REPORTS SHE IS READY TO GET UP TO THE CHAIR FOR LUNCH. 2 PERSON ASSIST UP TO CHAIR. DEPENDS SATURATED, YARI CARE DONE. DEPENDS CHANGED. PT REPORTS 5/10 PAIN THAT IS "NOT REALLY THAT BAD" IN HER RIGHT ARM. PT REPORTS SHE HAS "CREAM" IN PLACE AND DENIES NEED FOR ADDITIONAL MEDICATION AT THIS TIME. IV ASSESSED, WNL. FLUSHED AND SALINE LOCKED, ALCOHOL CAP APPLIED. NO S/S OF PHELBITIS NOTED. PT ALERT AND ORIENTED TO ALL. GENRALIZED WEAKNESS NOTED WITH TRANSFER TO CHAIR. TREMORS CONTINUE PER BASLINE, ESPICIALLY EVIDENT IN HANDS/ARMS. PT REPORTS DYSPENA ON EXERTION. PT REMAINS ON 4L O2 BY NC WITH OXGYEN SATURATIONS ABOVE 92%. LUNG SOUNDS CLEAR. LOWER LOBES DEMINISHED WITH OCCATIONAL FINE CRACKELS HEARD. HEART TONES REGULAR. TRACE EDMA NOTED IN BILATERAL LOWER EXTREMITIES AND BILATERAL UPPER EXTREMITIES. PT DENEIS STIFFNESS WITH MAKING A FIST. BOWEL TONES HYPOACTIVE. PT REPORTS PASSING GAS. BOWEL MEDICATIONS RECENTLY GIVEN. PT INCONTINANT AT TIMES. VOIDING QUANTITY SUFFICIENT. PT REMAINS UP TO CHAIR. EATING LUNCH. NO ADDITIOANL NEEDS AT THIS TIME. CALL LIGHT WITHIN REACH.
--- NOTE | 2022-03-04 12:43 | NUR ---
THIS RN TO ROOM TO CHECK ON PT. PT REPORTS SHE IS READY TO HAVE A BOWEL MOVEMENT. 1 PERSON ASSIST UP TO RESTROOM. DEPENDS SATURATED. PT HAS LARGE BROWN FORMED BOWEL MOVEMENT. YARI CARE DONE, FRESH DEPENDS IN PLACE. 1 PERSON ASSIST BACK TO BED. PT DENIES ADDITIONAL REQUESTS OR COMPLAINTS. CALL LIGHT WITHIN REACH. BED RAILS UP. BED ALARM ON.
--- NOTE | 2022-03-04 13:12 | NUR ---
PT ALERT, ORIENTED AND SEEMED PLEASED I STOPPED BY. HAD GOOD VISIT, PT DIDN'T SLEEP WELL THOUGH. L ARM WAS BOTHERING HER AND KEPT HER FROM SLEEPING. GAVE COMFORT, PT REQUESTED PRAYER. WILL FOLLOW NEEDED
--- NOTE | 2022-03-04 14:23 | NUR ---
THIS RN TO ROOM TO CHECK ON PT. PT ASSISTED WITH POSITIONING SELF IN BED. HEAD OF BED REMAINS ELEVATED TO 35 DEGREES. MEDICATION GIVEN. IV REMAINS WNL, NO S/S OF PHLEBITIS NOTED. PT REPORTS PAIN IN RIGHT ARM IS "JUST FINE." PT DENIES NEED FOR ADDITIONAL PAIN MEDICATIONS AT THIS TIME. PT DENIES ADDITIONAL REQUESTS OR COMPLAINTS. PT REMAINS ON 4L O2 BY RI WITH OXGYEN SATURATION OF 92%. CALL LIGHT WITHIN REACH. BED RAILS UP.
--- NOTE | 2022-03-04 15:06 | NUR ---
AFTERNOON ASSESSMENT DUE. PT REPORTS DEPENDS ARE WET. PT UP TO STAND WITH 1 PERSON ASSIST FOR DEPENDS CHANGE PER CERTIFIED MEDICINE AIDE. PT BACK TO BED. PT REPORTS 6/10 PAIN IN UPPER RIGHT ARM AND REQUESTS PAIN CREAM. SEE MAR FOR MEDICATION GIVEN. PT REPORTS "THAT HELPS ALREADY." PT DENEIS NAUSEA. PT REMAINS ALERT AND OREINTED TO ALL. LUNGS SOUNDS REAMIN CLEAR IN UPPER LOBES, FINE CRACKELS NOTED IN BASES WITH DEEP BREATHS. NO COUGH NOTED. HEART TONES REGULAR. PT USES'S THIS RN'S STETHASCOPE TO LISTEN TO THIS RN'S HEART AND IS VERY EXCITED ABOUT THIS EXPERIENCE. EDEMA TO BLE AND BUE UNCHANGED. PT BLOWS NOSE AND "A CLOT CAME OUT." MILD EPISTAXIS NOTED. HUMIDIFICATION ADDED TO OXGYEN TUBING. PT WORKING WITH PHYSICAL THERAPY. NO ADDITIONAL NEEDS AT THIS TIME. CALL LIGHT WITHIN REACH.
--- NOTE | 2022-03-04 16:22 | NUR ---
ANA MARIA, RN, REPORTS PT IS TEARFUL WITH PAIN. THIS RN TO ROOM. PT BACK FROM WORKING WITH PHYSICAL THERAPY. PT REPORTS SUPRAPUBIC PAIN AT 7/10 AND IS NOTED TO BE TEARFUL. TYELNOL GIVEN. WARM PACK AND CRANBERRY JUICE PROVIDED. PT CALMS AND IS RELAXING IN BED. PT REPORTS RIGHT ARM PAIN HAS IMPROVED AND IS NOW 5/10. PT REPORTS IMMIDATE RELIEF FROM PAIN WITH HEAT PACK IN PLACE. PT REPORTS SHE WAS "A TROOPER" DURING PHYSICAL THERAPY AND "WALKED A LONG WAY." PT NOTED TO BE ON 3L O2 BY NC WITH OXGYEN SATURATION OF 90%. O2 INCREASED TO 4L O2 BY NC AND OXGYEN SATURATIONS CLIMB TO 93%. PT DENIES ADDITIONAL REQUESTS OR COMPLAINTS. CALL LIGHT WITHIN REACH. BED RAILS UP.
--- NOTE | 2022-03-04 16:30 | NUR ---
PT TRANSFERED FROM CCU THIS SHIFT, HERE FOR CHF EXACERTBATION. PT UP TO CHAIR FOR MEALS, TO RESTROOM, AND IN BROWN WITH PHYSICAL THERAPY WITH 1 PERSON ASSIST AND FWW. PT TOLERATING 2GM SODIUM DIET WITH GOOD APPITITE. PT REPORTS RIGHT ARM PAIN (CREAMS USED) AND SUPRAPUBIC PAIN (TYLENOL, HEAT, AND CRANBERRY JUICE GIVEN) THIS SHIFT. PT REMAINS ON 4L O2 BY NC, NEEDING UP TO 6 WHEN UP TO RESTROOM AND UP TO 10 WITH AMBUALTIN IN BROWN TO MAINTAIN OXYGEN SATURATIONS ABOVE 90%. FINE CRACKELS NOTED IN BASES OF LUNGS. MINIMAL EXREMITY EDEMA NOTED. IV LASIX GIVEN. SUPPOSITORY AND LACTULOSE GIVEN THIS SHIFT FOR CONSTIPATION WITH GOOD RESULTS. EPITAXIS NOTED THIS SHIFT, HUMIDIFICATION ADDTED TO OXGYEN TUBING. PT VOIDING LARGE AMOUNTS, INCONTINANT MOST OF THE TIME. PT USES CALL LIGHT AND MAKES NEEDS KNOWN.
--- NOTE | 2022-03-04 17:05 | NUR ---
THIS RN TO ROOM TO CHECK ON PT. PT EATING DINNER AND VERY EXCITED ABOUT HER FOOD. PT STATES "I'M EATING REALLY GOOD TONIGHT." PT REPORTS SUPRAPUBIC PAIN HAS RESOLVED STATING "THAT HEAT PAD AND TYLENOL REALLY HELPED." PT DENIES ADDITIONAL REQUESTS OR COMPLAINTS. CALL LIGHT WITHIN REACH. BED RAILS UP.
--- NOTE | 2022-03-04 17:23 | NUR ---
PT CALL LIGHT ON. PT REPORTS SHE IS FINISHED WITH DINNER. PT CONTINUES TO STATE PAIN HAS RESOLVED. PT UP TO STAND WITH STAND BY ASSIST AND FWW. DEPENDS SATURATED, YARI CARE DONE, DEPENDS CHANGED. PT REPORTS SHE WOULD LIKE TO GO BACK TO BED. PT POSITIONS SELF IN BED. GOWN AND LINENS CHANGED. PT DENIES ADDITIONAL REQUESTS OR COMPLAINTS. CALL LIGHT WITHIN REACH. BED RAILS UP.
--- NOTE | 2022-03-04 18:48 | NUR ---
THIS RN TO ROOM TO CHECK ON PT. PT REPORTS HER DEPENDS IS WET. PT UP TO STAND WITH STAND BY ASSIST. SUPPORTED WITH FWW. DEPENDS SATURATED. YARI CARE DONE. DEPENDS CHANGED.OXGYEN SATURATION REMAINS 90-94% ON 4L O2 BY NC. 1 PERSON ASSIST BACK TO BED. PT NEEDS SUPPORT GETTING FEET INTO BED. JUICE AND PUDDING PROVIDED. PT ASSISTED WITH CALLING AND LEAVING A MESSAGE FOR HER FRIEND NATASHA. PT DENIES ADDITIONAL REQUESTS OR COMPLAINTS. CALL LIGHT WITHIN REACH. HEAD OF BED ELEVATED TO 35 DEGREES. BED RAILS UP.
--- NOTE | 2022-03-04 21:20 | NUR ---
in to provide pt with juice, i&os done, no further needs
--- NOTE | 2022-03-04 22:00 | NUR ---
PT STATES HER R SHOULDER IS HURTING NOW LIKE HER OTHER SHOULDER DID. LOOKED AT ARM AND SHOULDER. WILL LET HER PRIMARY RN KNOW. PT DENIES FURTHER NEEDS, CALL LIGHT IS CLOSE.
--- NOTE | 2022-03-04 22:15 | NUR ---
NOTIFIED NELLA LOW OF PT'S SHOULDER PAIN, SHE IS APPLYING CREAM NOW.
--- NOTE | 2022-03-04 22:29 | NUR ---
HAS HAD A PUDDING AND SEVERAL CRANBERRY JUICES. EXPERIENCING PAIN TO L SHOULDER AND R ARM. LIDOCAINE CRAM AND ASPERCREME GAVE RELIEF. PT INFORMED STAFF WHEN SHE WAS INCONTINENT.
--- NOTE | 2022-03-04 23:40 | NUR ---
in to assist pt with scooting back to the middle of the bed, no further need at this time
--- NOTE | 2022-03-05 01:11 | NUR ---
PT REMAINS AWAKE. EXPRESSES NAYELI AT WATCHING WHATS ON TV.
--- NOTE | 2022-03-05 03:13 | NUR ---
PT FINALLY STARTING TO DOZE OFF. RT WAS CALLED SO THAT THEY COULD START CPAP.
--- NOTE | 2022-03-05 04:42 | NUR ---
SLEEPING SOUNDLY WITH CPAP ON. RESPIRATIONS EVEN AND UNLABORED
--- NOTE | 2022-03-05 06:22 | NUR ---
Lidocaine and aspercreme effective to pain in pt's L shoulder and R upper arm. Stayed awake until almost 3 am. Has been sleeping soundly with CPAP since.
--- NOTE | 2022-03-05 08:30 | NUR ---
REPORT RECEIVED FROM NIGHT RN AND PT. CARE RESUMED. PT. ASSISTED WITH REMOVING CPAP AND BACK ON 4L NC 02. ASSISTED WITH REPOSITIONING FOR BREAKFAST.LEFT RESTING WITH CALL LIGHT IN REACH.
--- NOTE | 2022-03-05 08:45 | NUR ---
REPORT RECEIVED FROM NIGHT RN AND PT. CARE RESUMED. PT. IS SLEEPING ON CPAP. PT. AWAKENS EASILY AND ASSISTED WITH REMOVING CPAP AND PLACED ON 3L NC 02. CRACKLES PRESENT IN BASES OF LUNGS. TRACE EMDEMA BLE. IV WNL AND FLUSHES WELL. PT. ORIENTED TO ALL BUT DATE. SHE REFUSES TO AMBULATE TO THE CHAIR AT THIS TIME. MEDS. ADMIN BY IN SCHOOL SUSPENSION COORDINATOR. PT. LEFT RESTING WITH CALL LIGHT IN REACH.
--- NOTE | 2022-03-05 11:02 | NUR ---
ROUNDING ON PT. SHE IS UP IN THE CHAIR WATCHING TV. SHE STATES SHE IS DOING WELL AND DENIES FURTHER NEEDS.
--- NOTE | 2022-03-05 11:20 | NUR ---
PT ALERT, ORIENTED AND SITTING IN CHAIR. SAID SHE FEELS GOOD, BELIEVES SHE WILL DC LATER TODAY. VERY CHEERFUL, MICHELLE JIMENEZ AND IN CARING FOR PT. GAVE BLESSING. WILL FOLLOW
--- NOTE | 2022-03-05 13:27 | NUR ---
ROUNDING ON PT. SHE IS ON 3L NC AND O2 SAT. SPOT CHECKED AND WAS 87%. 02 TITRATED TO 4L NC AND IMPROVED TO 90%. PT. BROUGHT WARM BLANKET AND LEFT RESTING WITH CALL LIGHT IN REACH.
--- NOTE | 2022-03-05 14:23 | NUR ---
PT. USED CALL LIGHT APPROPRIATELY FOR ASSISTANCE FROM THE BATHROOM. PT. HAD A VERY LARGE FORMED BM IN THE TOILET AND ASSISTED WITH CLEANING. SHE IS BACK TO BED WITH FWW AND SBA.
--- NOTE | 2022-03-05 19:45 | NUR ---
ALERT AND WATCHING TV. DENIES ANY SOB AT THIS TIME.
--- NOTE | 2022-03-05 23:39 | NUR ---
REMAINS AWAKE. REQUESTED CRACKERS. C/O PAIN TO R UPPER ARM. LIDOCAINE AND ASPERCREME APPLIED. DENIES ANY OTHER NEEDS.
--- NOTE | 2022-03-06 05:46 | NUR ---
PT HAS HAD AN UNEVENTFUL NIGHT. NEEDED LIDOCAINE AND ASPERCREME ONCE FOR PAIN TO R UPPER ARM. HAS HAD CPAP ON SINCE WAITING TO FALL ASLEEP AT APPROX 2330. HAS BEEN SLEEPING WELL THOUGH THE NIGHT. HOB ELEVATED GREATER 45 DEGREES
--- NOTE | 2022-03-06 07:50 | NUR ---
REPORT RECD. FROM NIGHT RN, PT. RESTING IN BED, EYES CLOSED RESPIRATIONS EVEN, 02 PER NC, ASSUMED ALL PT. CARE
[2022-03-06] MEDS ORDERED: TORSEMIDE20 MG PO (12:46)
--- NOTE | 2022-03-06 13:21 | NUR ---
PT. ASSISTED TO THE BR, CALLS FOR NEED, SBA WITH FWW, LARGE BM TODAY, 02 AT 4 L NC AT ALL TIMES, CPAP AT NIGHT, VERY SLEEPY THIS SHIFT SO FAR
--- NOTE | 2022-03-06 14:00 | NUR ---
DISCHARGE ORDERS TO RETURN TO [facility], SHE HAS BEEN ON 3 L NC AT HOME. DISCHARGING WITH HH ORDERS PT/OT FOR STRENGTHENING. SHE IS USING A FWW WITH SBA TO BR FOR NEEDS. GOOD APPETITE AND ADEQUATE FLUIDS. DC IV, TOLERATES WELL. PREPARE FOR DISCHARGE, FACILITY TO PICK PT. UP
== END 2022-03-06 14:34 | disposition home or self-care (01) | DRG 291 ==
LOC: ED 19:45 → CCU 19:47 → MS 03-03 17:20 → CCU 03-03 17:20 → MS 03-04 11:40
PROVIDERS: ADMIT Internal Medicine; ATTEND Internal Medicine
PROC: 5A09357 Assistance with Respiratory Ventilation, Less than 24 Consecutive Hours, Continuous Positive Airway Pressure (ICD-10-PCS; principal; 2022-03-05)
DX: I11.0 Hypertensive heart disease with heart failure (principal); I50.33 Acute on chronic diastolic (congestive) heart failure; J96.21 Acute and chronic respiratory failure with hypoxia; E66.2 Morbid (severe) obesity with alveolar hypoventilation; G21.19 Other drug induced secondary parkinsonism; Z68.43 Body mass index [BMI] 50.0-59.9, adult; Z20.822 Contact with and (suspected) exposure to COVID-19; I27.20 Pulmonary hypertension, unspecified; R82.71 Bacteriuria; R33.9 Retention of urine, unspecified; M79.18 Myalgia, other site; E78.5 Hyperlipidemia, unspecified; F31.9 Bipolar disorder, unspecified; F43.10 Post-traumatic stress disorder, unspecified; F60.9 Personality disorder, unspecified; J44.9 Chronic obstructive pulmonary disease, unspecified; K21.9 Gastro-esophageal reflux disease without esophagitis; E03.9 Hypothyroidism, unspecified; Z87.891 Personal history of nicotine dependence; Z99.81 Dependence on supplemental oxygen; Z88.0 Allergy status to penicillin; Z88.1 Allergy status to other antibiotic agents; Z88.2 Allergy status to sulfonamides; Z88.8 Allergy status to other drugs, medicaments and biological substances; Z91.048 Other nonmedicinal substance allergy status; Z79.82 Long term (current) use of aspirin; Z79.899 Other long term (current) drug therapy
CPT/HCPCS: 36415; 36600; 71045; 80048; 80053; 82803; 83735; 83880; 85025; 87502; 93306; 94640; 94660; 94760; 96374; 96375; 97116; 97161; 97165; 97535; 99285-25; A9270; C9803; J1650; J1940; J2270; J2930; J3480; J3490; J7060; U0003

== ENCOUNTER 2022-03-16 02:08 | Emergency (ER) | payer OTHER ==
[~2022-03-16] VITALS: Ht 139.7 cm; Wt 105.3 kg
[~2022-03-16 02:08] MED LIST changes: +SPIRONOLACTONE25 MG PO
[2022-03-16] MEDS ORDERED: 12 HOUR NASAL S30 ML NAS (04:54)
--- NOTE | 2022-03-17 00:22 | EKG ---
[facility] [address] [facility] [place] [address] Signed Normal sinus rhythm Right axis deviation Right ventricular hypertrophy Nonspecific T wave abnormality Prolonged QT Abnormal ECG When compared with ECG of 15-DEC-2021 00:35, ST no longer depressed in Inferior leads ST less depressed in Anterior leads Nonspecific T wave abnormality, improved in Inferior leads QT has lengthened Confirmed by GANGA HOPE MD ([id number] on 03/17/2022 12:21:57 AM Electronically Signed By: GANGA HOPE MD 03/17/2221 PATIENT NAME: KEO BARRAZA Electrocardiogram DATE OF : 61 PHYSICIAN: GANGA HOPE MD REPORT #: [id number] REPORT IS CONFIDENTIAL AND NOT TO BE RELEASED WITHOUT AUTHORIZATION
== END 2022-03-16 05:30 | disposition home or self-care (01) ==
LOC: ED 02:08
DX: R07.9 Chest pain, unspecified (principal); R04.0 Epistaxis; R06.00 Dyspnea, unspecified; R04.2 Hemoptysis; E03.9 Hypothyroidism, unspecified; E66.9 Obesity, unspecified; M19.90 Unspecified osteoarthritis, unspecified site; G47.30 Sleep apnea, unspecified; J44.9 Chronic obstructive pulmonary disease, unspecified; K21.9 Gastro-esophageal reflux disease without esophagitis; I11.0 Hypertensive heart disease with heart failure; I50.9 Heart failure, unspecified; Z88.1 Allergy status to other antibiotic agents; Z88.2 Allergy status to sulfonamides; Z88.0 Allergy status to penicillin; Z91.018 Allergy to other foods; Z79.899 Other long term (current) drug therapy; Z79.82 Long term (current) use of aspirin
CPT/HCPCS: 36415; 71045; 80053; 83880; 84484; 85025; 85379; 85610; 93005; 93010; 96374; 99285-25; J2405

== ENCOUNTER 2022-03-27 15:56 | Inpatient (IN) | payer OTHER ==
[~2022-03-27] VITALS: Ht 152.4 cm; Wt 103.3 kg
[~2022-03-27 15:56] MED LIST changes: +12 HOUR NASAL S30 ML NAS
[2022-03-27] MEDS ORDERED: ROBAFEN100 MG/5 M PO (16:42)
[2022-03-27] MEDS ORDERED: SINGULAIR10 MG PO (16:44)
[2022-03-27] MEDS ORDERED: ADCIRCA20 MG PO (16:46)
[2022-03-27] MEDS ORDERED: VITAMIN C500 M1 PO (16:50)
--- NOTE | 2022-03-27 19:40 | NUR ---
report from [facility] ED
--- NOTE | 2022-03-27 19:45 | NUR ---
PT ARRIVED FROM EN TO ADMIT TO ROOM 128. ALERT AND ORIENTED, VISITING WITH STAFF. NO CONCERNS AT THIS TIME
--- NOTE | 2022-03-27 20:00 | NUR ---
TALKED WITH [employer] CAREGIVERS AT NURSES STATION IN REGARDS TO PT HOME MEDICATIONS, CAREGIVER SAID SHE HAS HAD ALL HER AM MEDICATIONS, BUT NOT HER HS MEDICATIONS. SHE HAS HAD ONLY 1000 KASEY TODAY AND SAME WITH SODIUM. SHE HAS HAD ONLY ABOUT 500ML OF HER FLUID RESTRICTION WELL. PT ORDERED A LUNCH BOX TO PROVIDE DINNER AND 200ML OF FLUID WITH.
--- NOTE | 2022-03-27 21:20 | EKG ---
[facility] [address] [facility] [place] [address] Signed Sinus tachycardia Biatrial enlargement Right axis deviation Pulmonary disease pattern Right ventricular hypertrophy with repolarization abnormality Nonspecific T wave abnormality Abnormal ECG No previous ECGs available Confirmed by GANGA HOPE MD ([id number] on 03/27/2022 9:20:10 PM Electronically Signed By: GANGA HOPE MD 03/27/222119 PATIENT NAME: KEO BARRAZA Electrocardiogram DATE OF : 61 PHYSICIAN: GANGA HOPE MD REPORT #: [id number] REPORT IS CONFIDENTIAL AND NOT TO BE RELEASED WITHOUT AUTHORIZATION
--- NOTE | 2022-03-27 22:36 | NUR ---
LUNCH BOX ARRIVED AND PROVIDED TO PT, SAT PT UP HIGH, SHE DID DESATURATE TO 88% WHILE EATING TITRATED OXYGEN UP TO 5L N.C. FOR ACTIVITY. R.T. NOTIFIED, ALSO BIPAP SET UP AT BEDSIDE
--- NOTE | 2022-03-27 23:18 | NUR ---
ROUNDING ON PT, SHE IS ALERT AND ORIENTED. SHE HAS A 1/2 CUP OF ICE AVAILABLE AT BEDSIDE, PT CHANGED FOR LARGE INCONT OF URINE, FULL LINEN CHANGE. PT HAS GOOD BED MOBILITY. PT REQUESTED ICE CREAM, A SANDWICH AND MORE FLUIDS, DISCUSSED WITH PT THAT HER DIET RESTRICTIONS ARE SUCH THAT SHE CAN NOT HAVE ANOTHER SANDWICH OR ICE CREAM, SHE IS GIVEN NO SUGAR VANILLA PUDDING AND INFORMED THAT THIS IS HER LIMIT FOR THIS EVENING PER HER DIET RESTRICTIONS. PT SAID "OK, THANK YOU"
--- NOTE | 2022-03-27 23:21 | NUR ---
PT PROVIDED BED BATH, AND WASHED RASH AREA UNDER PANUS, PILLOW CASE PLACED FOR SKIN PROTECTION, WAITING ON RX POWDER AND DEPAKOTE PER PULLMAN CAR CLERK AT THIS TIME.
--- NOTE | 2022-03-28 00:30 | NUR ---
PUREWICK PLACED TO ASSIST WITH PROTECTING SKIN FROM INCONT., PT REPORTS THAT SHE IS NOT UNCOMFORTABLE WITH THE PUREWICK IN PLACE AND SET TO SUCTION. SAND DRIER REPORTS HE IS UNABLE TO GET TO DEPAKOTE OR RX TOPICAL POWDER. THESE WILL BE HELD UNTIL AM DOSES.
--- NOTE | 2022-03-28 01:54 | NUR ---
PT RESTING QUIETLT IN BED EYES CLOSED RR REGULAR AT18 BPM. NO DISTRESS NOTED. PT HAS DECLINED TO HAVE BIPAP PLACED FOR SLEEP THREE TIMES.
--- NOTE | 2022-03-28 03:28 | NUR ---
PT ALERT AND ORIENTED, SHE SAID HER HOURS ARE TURNED AROUND SINCE LAST TIME IN HOSPITAL, SHE NAPS DURING THE DAY AND IS AWAKE AT NIGHT. SHE DECLINED TO HAVE BIPAP PLACED AT THIS TIME. SHE SAID "I AM NOT READY TO SLEEP RIGHT NOW" PT AGREED TO CALL STAFF WHEN SHE IS READY TO SLEEP WITH BIPAP. NO OTHER CONCERNS AT THIS TIME. URINE IS CALCULATED VIA PURE WICK TO SUCTION CANISTER.
--- NOTE | 2022-03-28 06:00 | NUR ---
CALLED TO UPDATE ON PT POTASSIUM LEVEL FLUCTUATION THIS AM FROM ADMIT, ALSO PT HAD MILD NAUSEA. NEW ORDERS PROVIDED.
--- NOTE | 2022-03-28 06:33 | NUR ---
PT ALERT AND ORIENTED, SHE REPORTED NAUSEA AN HOUR AGO, THAT HAS RESOLVED AT THIS TIME. SHE HAS NO OTHER CONCERNS THIS AM
--- NOTE | 2022-03-28 08:44 | NUR ---
IN PATIENT'S ROOM FOR CHANGEOVER OPERATOR, BREAKFAST, ASSESSMENT, VITALS. DR. HOPE IN ROOM TO SEE PATIENT AND PLAN OF CARE DISCUSSED. PT REMAINS ON BUMEX GTT AT 0.5 MG/HR = 10 ML/HR. NEW IV PLACED IN RIGTH OUTER AC AREA, AND IV IN INNER UPPER AC AREA D/C DUE TO BRUISING AND PALPATING HARDENED AREA UNDER SKIN. PT ON 3-4 L NC AT THIS TIME. PT STATES SHE FEELS BETTER THAN SHE DID YESETRDAY AND HER NUMBNESS IN LEFT ARM HAS RESOLVED. ALSO REPORTS MINIMAL TINGLING IN LEGS TODAY. PUREWICK IS IN PLACE AND WORKING WELL, WITH CLEAR YELLOW URINE IN SUCTION CANISTER. LUNGS ARE CLEAR IN UPPER TO MID LUNG MCCLOUD, UNABLE TO HEAR LOWER LUNGS AT THIS TIME. IV POTASSIUM STARTED IN NEW IV SITE AND INFUSING WELL WITHOUT PAIN OR REDNESS. WILL CONTINUE TO MONITOR. PT REMAINS ON 1500 ML FLUID RESTRICTION.
--- NOTE | 2022-03-28 11:30 | NUR ---
PURE WICK CATHETER CHANGED OUT. YARI CARE PROVIDED. PT WAS DRY ON ATTENDS AND ON CHUX PAD UNDERNEATH, BUT DID HAVE SOME SMEARS OF STOOL PRESENT. PUREWICK SEEMS TO BE WORKING WELL FOR PATIENT AND KEEPING HER DRY. PT REMAINS ON BUMEX GTT AT 10 ML/HR. IV SITES WITHOUT REDNESS OR SWELLING AND INFUSING WELL INTO RIGHT HAND IV SITE. CONTINUE TO MONITOR.
--- NOTE | 2022-03-28 11:31 | NUR ---
PATIENT RESTING AT THIS TIME. SP02 IS 91% ON 4 L NC. HR IN THE 80s. WILL CONTINUE TO MONITOR.
--- NOTE | 2022-03-28 12:28 | NUR ---
PT HAD SMALL EMESIS AFTER EATING LUNCH AND COMPLAINS OF NAUSEA. PRN MEDICATION GIVEN AT THIS TIME (SEE EMAR). WILL CONTINUE TO MONITOR.
--- NOTE | 2022-03-28 13:01 | NUR ---
Medications reconciled. Hospital will use some of patient's own medications, tadalafil, trospium and selexipag
--- NOTE | 2022-03-28 13:38 | NUR ---
The patient called and asked for a bed bath. This EDGE TRIMMER got all the things for a bed bath and helped the patient get cleaned up. The patient got a shampoo cap with her hair brushed as well.
--- NOTE | 2022-03-28 14:42 | NUR ---
PATIENT SLEEPING AT THIS TIME. SP02 IS 90% ON 5 L NC. RR IS 16 AT THIS TIME. HR IN THE 80s. CONTINUE TO MONITOR. PUREWICK CATHETER STILL DRAINING CLEAR YELLOW URINE AND BUMEX GTT CONTINUES AT 10 ML/HR.
--- NOTE | 2022-03-28 18:00 | NUR ---
PATIENT'S GOWN CHANGED, WELL DRAW SHEET UNDERNEATH. NEW CHUX PAD AND ATTENDS. PT ATE ABOUT 75% OF HER DINNER. PT UPDATED ON FLUID RESTRICTION FOR THE REST OF THE EVENING. PT REMAINS ON 5 L NC AT THIS TIME. CONTINUE TO MONITOR. PT AGREEABLE TO WEAR CPAP/BIPAP TONIGHT FOR SLEEP.
--- NOTE | 2022-03-28 19:30 | NUR ---
RECEIVED REPORT FROM DAY SHIFT RN. PT SITTING IN BED IN NO ACUTE DISTRESS. PT DENIES ANY SOB, REMAINS ON 5L. AWARE SHE WILL BE PLACED ON CPAP FOR HS. ASKING FOR SODA AWARE SHE HAS NO MORE PO FLUID INAKE AFTER SODA.
--- NOTE | 2022-03-28 23:19 | NUR ---
PT RESQUESTING PRN NIGHT AID, MELATONIN GIVEN. RESP EVEN AND UNLABORED. CALL LIGHT WITHIN REACH WILL CONTINUE TO MONITOR
--- NOTE | 2022-03-29 00:19 | NUR ---
PT SLEEPING IN BED WITH EYES CLOSED. RESP EVEN AND UNLABORED. VSS CALL LIGHT WITHIN REACH WILL CONTINUE TO MONITOR.
--- NOTE | 2022-03-29 02:45 | NUR ---
PT LAYING IN BED IN NO ACUTE DISTRESS. PT RESP EVEN AND UNLABORED. PT TOLERATING CPAP WELL. CALL LIGHT WITHIN REACH WILL CONTINE TO MONITOR,
--- NOTE | 2022-03-29 05:11 | NUR ---
PT REMOVED CPAP, PLACED BACK ON 5L NC. RESP EVEN AND UNLABORED. CALL LIGHT WITHIN REACH WILL CONTINUE TO MONITOR.
--- NOTE | 2022-03-29 07:52 | NUR ---
PATIENT SLEEPY THIS AM BUT STATES SHE IS FEELING OKAY OVERALL, BUT IS A LITTLE DIZZY THIS AM. PT REQUESTING ORANGE JUICE. PT REMAINS ON 4.5 L OXYGEN, WHICH WAS TURNED DOWN TO 4 L. BUMEX GTT CONTINUES AT 0.5 MG/HR=10 ML/HR. LUNGS ARE RELATIVELY CLEAR WITH COME CRACKLES HEARD IN RIGHT LOWER BASE. PT NOW SITTING UP EATING BREAKFAST. AM MEDS TO BE GIVEN.
--- NOTE | 2022-03-29 08:36 | NUR ---
DISCUSSED WITH DR. HOPE CHANGING IV ROCEPHIN FROM 1 GM TO 2 GM DAILY. ORDER PLACED.
--- NOTE | 2022-03-29 10:23 | NUR ---
PATIENT AMBULATED TO CHAIR WITH P/T ASSISTING. PATIENT MOVED WELL. LEGS ELEVATED. LINENS CHANGED. CALL LIGHT IN EASY REACH.
--- NOTE | 2022-03-29 13:55 | NUR ---
BEEDBATH GIVEN, LEGS SHAVED AND HAIR/SKIN CARE PROVIDED. PATIENT BACK TO BED AT THIS TIME, PUREWICK IN PLACE. CALL LIGHT IN EASY REACH
--- NOTE | 2022-03-29 15:59 | NUR ---
PATIENT CONTINUES TO REST AT THIS TIME. SP02 IS 94% ON 4 L NC. HR IN THE 70s. BUMEX GTT CONTINUES AT 0.5 MG/HR=10 ML/HR.
--- NOTE | 2022-03-29 18:54 | NUR ---
PATIENT RESTING IN BED/SLEEPING. PUREWICK REMAINS IN PLACE. HR IN THE 70-80s. SP02 IS 90% ON 4 L NC. PT HAS 400 ML MORE FOR THE NIGHT UNTIL 0600 IN HER FLUID RESTRICITON. CONTINUE TO MONITOR. REPORT TO DIMENSION QUARRY SUPERVISOR.
--- NOTE | 2022-03-29 20:15 | NUR ---
RECEIVED REPORT FROM DAY SHIFT RN. PT LAYING IN BED IN NO ACUTE DISTRESS. PT REPORTS FEELING WET FROM PURE WICK . CHANGES PTS PURE WICK , ATTENDS AND CHUCKS. APPLIED NYSTATIN CREAM UNDER PANNUS AND BREASTS. PT RESP EVEN AND UNLABORED, IN AGREEMENT TO WEAR CPAP THIS LAKE. VSS CALL LIGHT WITHIN REACH WILL CONTINUE TO MONITOR
--- NOTE | 2022-03-29 21:57 | NUR ---
PT CALLS REPORTING THAT SHE HAS A NOSE BLEED. GAVE PT TISSUES AND SWITCHED HER OUT FROM NC TO OXY MASK TO GIVE HER A BREAK. PT ON CHRONIC O2 HAS HUMIDIFER ATTAHCED TO O2. CALL LIGHT WITHIN REACH WILL CONTINUE TO MONITOR
--- NOTE | 2022-03-29 22:36 | NUR ---
PLACED CPAP ON PT , PT TOLERATING WELL SATS AT 96%. VSS CALL LIGHT WITHIN REACH WILL CONTINUE TO MONITOR.
--- NOTE | 2022-03-30 00:17 | NUR ---
PT RESTING IN BED REQUESTING TO HAVE CPAP REMOVED. PLACED OXY MASK BACK ON PT SATS GREATER THAN 90. DENIES ANY CONCERNS AT THIS TIME. CALL LIGT WITHIN REACH WILL CONTINUE TO MONITOR.
--- NOTE | 2022-03-30 01:54 | NUR ---
PT SLEEPING IN BED WITH EYES CLOSED IN NO ACUTE DISTRESS. PT REMAINS ON 4L PER OXY MASK SATS 93. CALL LIGHT WITH IN REACH WILL CONTINUE TO MONITOR.
--- NOTE | 2022-03-30 04:16 | NUR ---
PT SLEEPING IN BED IN NO ACUTE DISTRESS PT RESP EVEN AND UNLABORED, SATS @ 91% ON 4L PER OXY MASK. CALL LIGHT WITHIN REACH WILL CONTINUE TO MONITOR.
--- NOTE | 2022-03-30 05:19 | NUR ---
PT REQUESTING ICE AND A BLANKET. LAB IN ROOM TO DRAW AM LABS. PT DENIES ANY CONCERNS At TIHS TIME. VSS RESP EVEN AND UNLABORED. WILL CONTINUE TO MONITOR
--- NOTE | 2022-03-30 07:30 | NUR ---
REPORT RECIEVED. PATIENT IS RESTFUL IN BED. NO DISTRESS NOTED. BUMEX GTT INFUSING.
--- NOTE | 2022-03-30 08:00 | NUR ---
ASSESSMENT DONE. STATES SHE HAD SOME PAIN IN RIGHT SHOULDER EARLIER, DENIES THE PAIN AT THIS TIME. TALKED WITH PATIENT ABOUT POC FOR DAY.
--- NOTE | 2022-03-30 08:10 | NUR ---
BUMEX GTT DC'D PER ORDERS. ROUTINE MEDICATIONS GIVEN. PATIENT IS AWARE OF FLUID RESTRICTION.
--- NOTE | 2022-03-30 08:30 | NUR ---
TOOK APPROX 20% OF BREAKFAST. DR. HOPE HERE TO SEE PATIENT. TRANSFER ORDERS TO MED-SURG RECIEVED.
--- NOTE | 2022-03-30 09:25 | NUR ---
TYLENOL GIVNE OF RIGHT SHOULDER PAIN. HEAT PACK APPLIED EARILER.
--- NOTE | 2022-03-30 09:30 | NUR ---
WILL STAY IN ROOM 128 FOR HOUSE CONVENIENCE FOR NOW.
--- NOTE | 2022-03-30 11:00 | NUR ---
MONITOR DC'D. TOOK NAP. DENIES SHORTNESS OF BREATH AT THIS TIME. TALKATIVE.
--- NOTE | 2022-03-30 12:30 | NUR ---
TOOK LUNCH FAIR.
--- NOTE | 2022-03-30 13:31 | NUR ---
PT ALERT, ORIENTED AND REQUESTED ASSISTANCE WITH FINDING MUSIC CHANNELS. GAVE PT AID, HAD GOOD VISIT WITH PT. SHE SAID SHE IS FEELING BETTER. PT REQUESTED PRAYER. WILL FOLLOW NEEDED
--- NOTE | 2022-03-30 14:07 | NUR ---
PATIENT SITTING UP IN RECLINER AT THIS TIME, PUREWICK IN PLACE. CALL LIGHT AND ICE WATER IN EASY REACH. WARM BLANKET PROVIDED
--- NOTE | 2022-03-30 16:00 | NUR ---
ASSISTED PATIENT BACK TO BED. TOLERATED TRANSFER WELL. IS WITH INCREASED SHORTNESS OF BREATH WITH EXERTION. WILL BE TRANSFERRED TO MED-SURG.
--- NOTE | 2022-03-30 16:30 | NUR ---
REPORT GIVEN TO MED-SURG. TO MED SURG VIA BED. REMAINS ON O2 AT 4 L NC.
--- NOTE | 2022-03-30 16:50 | NUR ---
PATIENT ARRIVED TO RM#111 IN HER CCU BED AND CPAP MACHINE WELL. PATIENT ON 4L/NC AND SATS ARE 97%. PATIENT DENIES PAIN AND NAUSEA. DINNER HAS ARRIVED AND THIS RN SET PATIENT UP IN THE BED TO EAT AND PATIENT HAS A VISITOR THAT JUST ARRIVED TO VISIT WITH HER WHILE SHE EATS DINNER. PATIENT'S ATTENDS IS DRY AND SHE HAS NO CURRENT NURSING CARE NEEDS. CALL LIGHT IS IN REACH.
--- NOTE | 2022-03-30 18:09 | NUR ---
PATIENT CALLED AND SAID SHE FELT LIKE SHE NEEDED A BREATHING TREATMENT. SATS ARE AROUND 89-90% ON 4L/NC. PATIENT IS NOT WHEEZING. THIS RN CALLED RT AND SHMUEL FROM RT ARRIVED AND INFORMED THE PATIENT IT WAS TO EARLY FOR A BREATHING TREATMENT AND ALSO CONCURRED PATIENT IS NOT WHEEZY. SHMUEL TALKED PATIENT IN TO GOING ON HER CPAP FOR AWHILE HER SATS WERE A LITTLE LOW AND PATIENT AGREED AND IS NOW. CALL LIGHT IS IN REACH.
--- NOTE | 2022-03-30 19:39 | NUR ---
REPORT RECEIVED FROM DAY SHIFT RN. PT LYING IN BED ALERT AND ORIENTED. 2PA TO REPOSITION IN BED. PERSONAL FAN PROVIDED. PT DENIES FURTHER NEEDS. WHITE BOARD UPDATED. CALL LIGHT IN REACH.
--- NOTE | 2022-03-30 22:27 | NUR ---
EVENING ASSESSMENT COMPLETE. SCHEDULED MEDS AGEE PER EMAR. PT DENIES PAIN OR NAUSEA. DENIES SOB. 4L/NC IN PLACE. SpO2 93%. PT INCONTINENT OF URINE. YARI CARE DONE AND CLEAN BRIEF PLACED. PT ABLE TO ASSIST WTIH CARES. PUREWICK PLACED TO SUCTION. PT DENIES QUESTIONS OR CONCERNS. CALL LIGHT IN REACH.
--- NOTE | 2022-03-30 23:07 | NUR ---
CALL LIGHT ANSWERED. PT REPORTS "ITCHY" RIGHT EAR. SKIN DRY WITH SMALL OPEN AREA BEHIND LOBE. AREA CLEANED AND A&D PLACED. PT REPORTS RELIEF. NO FURTHER NEEDS. CALL LIGHT IN REACH.
--- NOTE | 2022-03-31 01:53 | NUR ---
PT DOZING ON AND OFF. AWAKENS EASILY UPON ENTERING ROOM. DENIES NEEDS. SpO2 92% ON 4L/NC. HR 70'S. RESPIRATIONS EVEN.
--- NOTE | 2022-03-31 04:14 | NUR ---
CALL LIGHT ANSWERED. PT REPORTS "BEING WET" PUREWICK IN PLACE WITH URINE IN CANISTER. SMALL AMOUNT OF URINE ON BRIEF. YARI CARE DONE. CLEAN BRIEF PLACED. PUREWICK BACK IN PLACE. 2PA TO REPOSITION IN BED. ASSESSMENT COMPLETE. PT DENIES PAIN OR NAUSEA. DENIES SOB. BLE ELEVATED ON PILLOW. NO FURTHER NEEDS. LIGHTS OUT PER REQUEST. CALL LIGHT IN REACH.
--- NOTE | 2022-03-31 05:38 | NUR ---
LAB IN ROOM FOR MORNING DRAW. SCHEDULED MEDS ADMIN PER EMAR. PT REMAINS WITHIN FLUID RESTRICTION. DENIES NEEDS. CALL LIGHT IN REACH.
--- NOTE | 2022-03-31 08:00 | NUR ---
REPORT RECEIVED FROM NIGHT RN AND PT. CARE RESUMED. PT. IS ALERT AND ORIENTED TO ALL BUT DATE. 1PA WITH FWW TO THE CHAIR FOR BREAKFAST. PUREWICK CHANGED AND YARI CARE PERFORMED. NO EDEMA PRESENT. IV WNL AND FLUSHES WELL. CRACKLES PRESENT IN BASES. SHE IS ON 4L O2 NC. O2 SAT WAS 83% AFTER AMBULATION TITRATED TO 5L AND O2 SAT INCREASED TO 90%. ASSISTED WITH SETTING UP BREAKFAST. LEFT RESTING WITH CALL LIGHT IN REACH.
--- NOTE | 2022-03-31 09:06 | NUR ---
PT IS SITTING UP IN CHAIR. I&O AND VS CHARTED CALL LIGHT WITHIN REACH NO FURTHER TASKS AT THIS TIME
[2022-03-31] MEDS ORDERED: ULTRAM50 MG PO (10:07)
[2022-03-31] MEDS ORDERED: TORSEMIDE20 MG PO (10:08)
--- NOTE | 2022-03-31 10:59 | NUR ---
TIME STUDY TECHNOLOGIST REPORTS PT. IS PANICKED AND ON THE TOILET. PT. IS SOB AND STRAINING ON THE COMMODE. SHE STATES SHE IS UNABLE TO MOVE BOWELS. LIPS ARE BLUE. PT. ENCOURAGED TO DEEP BREATH AND NOT STRAIN. O2 SAT WAS 90%. PT. COACHED WITH BREATHING AND ABLE TO HAVE BM. PT. MORE RELAXED AND LEFT WITH TIME STUDY TECHNOLOGIST.
--- NOTE | 2022-03-31 11:28 | NUR ---
Margarita will discharge back to [facility] today. No new needs for discharge identified.
--- NOTE | 2022-03-31 12:04 | NUR ---
CAREGIVER CONTACTED REGARDING DISCHARGE. IV REMOVED WITH CATH INTACT AND WNL. PT. EDUCATED. ASSISTED WITH LUNCH SET UP. LEFT RESTING WITH CALL LIGHT IN REACH.
--- NOTE | 2022-03-31 12:34 | NUR ---
THIS RN TO ROOM TO ASSIST PTS PRIMARY RN WITH PREPARING PT FOR DISCHARGE. PT REMAINS UP TO CHAIR, FINISHED WITH LUNCH. PT DRESSED WITH 1 PERSON ASSIST. VITAL SIGNS STABLE. PTS PRIMARY RN UPDATED. PT DENIES ADDITIONAL REQUESTS OR COMPLAINTS. CALL LIGHT WITHIN REACH.
--- NOTE | 2022-03-31 13:00 | NUR ---
IV REMOVED WITH CATH INTACT AND WNL. PT. LEFT WITH ALL BELONGINGS VIA WHEELCHAIR AND CAREGIVER WITH HER O2 TANK.
--- NOTE | 2022-03-31 13:08 | NUR ---
PT SITTING IN CHAIR, ALERT BUT LOOKING SOMEWHAT DOWNCAST. PT STATED SHE DIDN'T SLEEP WELL LAST NIGHT. PT IS TO DC TODAY, ENCOURAGED TO NAP. PT REQUESTED PRAYER, THANKED ME. PT WAS SMILING UPON EXIT. WILL FOLLOW
== END 2022-03-31 13:06 | disposition home or self-care (01) | DRG 291 ==
LOC: ED 15:56 → CCU 18:56 → MS 03-30 16:45
PROVIDERS: ADMIT Internal Medicine; ATTEND Internal Medicine
DX: I50.33 Acute on chronic diastolic (congestive) heart failure (principal); J96.01 Acute respiratory failure with hypoxia; E66.2 Morbid (severe) obesity with alveolar hypoventilation; N17.9 Acute kidney failure, unspecified; N39.0 Urinary tract infection, site not specified; I27.0 Primary pulmonary hypertension; Z20.822 Contact with and (suspected) exposure to COVID-19; I50.813 Acute on chronic right heart failure; F31.9 Bipolar disorder, unspecified; F43.10 Post-traumatic stress disorder, unspecified; E03.9 Hypothyroidism, unspecified; F70 Mild intellectual disabilities; E66.9 Obesity, unspecified; G40.909 Epilepsy, unspecified, not intractable, without status epilepticus; K21.9 Gastro-esophageal reflux disease without esophagitis; N83.209 Unspecified ovarian cyst, unspecified side; Z88.0 Allergy status to penicillin; Z88.2 Allergy status to sulfonamides; Z88.1 Allergy status to other antibiotic agents; Z87.891 Personal history of nicotine dependence; Z79.82 Long term (current) use of aspirin; Z79.899 Other long term (current) drug therapy
CPT/HCPCS: 36415; 71045; 80048; 80053; 80164; 83735; 83880; 84484; 85025; 85379; 85610; 87502; 93005; 93010; 94640; 94660; 94760; 96372; 96374; 96375; 96376; 97110; 97162; 99285-25; A9270; C9803; G0378; J0696; J1650; J2405; J3480; J3490; J7060; U0003

== ENCOUNTER 2022-04-16 00:39 | Emergency (ER) | payer OTHER ==
[~2022-04-16] VITALS: Ht 152.4 cm; Wt 103.1 kg
[2022-04-16] MEDS ORDERED: LEVOFLOXACIN750 MG PO (02:14)
[2022-04-16] MEDS ORDERED: NITROFURANTOIN100 M1 PO (06:34)
[2022-04-16] MEDS ORDERED: SIMVASTATIN20 MG PO (06:35)
== END 2022-04-16 02:30 | disposition home or self-care (01) ==
LOC: ED 00:39
DX: I11.0 Hypertensive heart disease with heart failure (principal); I50.84 End stage heart failure; F43.10 Post-traumatic stress disorder, unspecified; E03.9 Hypothyroidism, unspecified; E66.9 Obesity, unspecified; M19.90 Unspecified osteoarthritis, unspecified site; G47.30 Sleep apnea, unspecified; J44.9 Chronic obstructive pulmonary disease, unspecified; K21.9 Gastro-esophageal reflux disease without esophagitis; Z87.891 Personal history of nicotine dependence; Z88.8 Allergy status to other drugs, medicaments and biological substances; Z88.1 Allergy status to other antibiotic agents; Z88.0 Allergy status to penicillin; Z88.2 Allergy status to sulfonamides; Z79.899 Other long term (current) drug therapy
CPT/HCPCS: 36415; 71045; 80053; 83880; 85025; 96374; 96375; 99285-25; J1940; J2060

== ENCOUNTER 2022-04-16 17:20 | Observation (INO) | payer OTHER ==
[~2022-04-16] VITALS: Ht 152.4 cm; Wt 78.0 kg
[~2022-04-16 17:20] MED LIST changes: +NITROFURANTOIN100 M1 PO
--- NOTE | 2022-04-16 21:30 | NUR ---
PT ARRIVED TO THE CCU VIA STRETCHER AT 2046 BY TRANSLATOR DEAF. PT BROUGHT WITH HER BELONGINGS. PT ON 10L OXYMASK ON ARRIVAL, SPO2 92-95%. PT ABLE TO STAND UP FROM THE STRETCHER AND PIVOT TO THE CCU BED. PT NOW RESTING IN BED IN FOWLERS. PT'S FAMILY IN AT THIS TIME ALONG WITH THE RT. VITALS TAKEN (SEE CHART). PT REPORTS SHORTNESS OF BREATH AFTERWARDS, NEB TREATMENT PROVIDED BY RT. PT TITRATED DOWN TO 6L O2 OXYMASK AFTERWARDS, SPO2 90-92%. PT REPORTED 05/09 "HEART/CHEST" PAIN AND SHORTNESS OF BREATH STILL, PRN MORPHINE ADMINISTERED ALONG WITH SCHEDULED MEDICAITONS (SEE MAR). ASSESSMENT COMPLETED AFTERWARDS. PT ALERT AND ORIENTED X4, HEART RYTHM REGULAR, LUNGS CLEAR IN UPPER LOBES AND DIMINISHED WITH FINE CRACKLES IN THE BASES BILATERALLY. BOWEL TONES ACTIVE, ABDOMEN SOFT AND NONTENDER. PULSES STRONG, PT DENIES NUMBNESS OR TINGLING TO EXTREMITIES. IV'S ASSESSED, RIGHT AC IV PATENT, LEFT WRIST IV NO LONGER PATENT AND WAS DC'D. IV CATHETER INTACT UPON REMOVAL, SITE WNL, GAUZE OVER SITE. PT REPORTS NO NEEDS AT THIS TIME WHEN ASKED AND IS NOW RESTING IN BED, FAMILY AT THE BEDSIDE WITH THE PT. CALL LIGHT IN REACH, WILL CONTINUE PLAN OF CARE.
--- NOTE | 2022-04-16 22:10 | NUR ---
PT REMAINS RESTING IN BED AWAKE AND ALERT ON 6L OXYMASK. FAMILY LEAVING AT THIS TIME. PT PROVIDED WITH SNACKS/SANDWICH BOX PER HER REQUEST. PT PLACED ON 5L NC, SPO2 REMAINS 90-92%. HISTORY OBTAINED AT THIS TIME, PT REPORTS NO FURTHER NEEDS AND DENIES HAVING ANY PAIN OR SHORTNESS OF BREATH WHEN ASKED. PT NOW EATING, CALL LIGHT IN REACH, BED IN LOWEST POSITION, WILL CONTINUE PLAN OF CARE.
--- NOTE | 2022-04-16 22:30 | NUR ---
PT ALERT AND ORIENTED RESTING IN BED, SPO2 90%, PT ON 5L O2 NC. PT STATED SHE WAS FINISHED EATING HER DINNER AND REQUESTED THE OXYMASK BACK ON, PT REPORTS SHORTNESS OF BREATH AT HTIS TIME. 10MG PRN MORPHINE ADMINISTERED FOR SHORTNESS OF BREATH (SEE MAR). PT ALSO REPORTS HAVING ANXIETY AT THIS TIME AND REQUESTED PRN ANXIETY MEDICATION, WILL CONTINUE PLAN OF CARE AND ADMINISTER REQUESTED MEDICATION. CALL LIGHT IN REACH, BED IN LOWEST POSITION.
--- NOTE | 2022-04-16 22:45 | NUR ---
DR. MONACO CALLED AND NOTIFIED THAT PRN ATIVAN SUBLINGUAL WAS NOT AVAILABLE VIA [email or web address] AT THIS TIME. ORDERS GIVEN TO ADMINISTER IV ATIVAN 0.5-1MG Q1 PRN FOR ANXIETY/AGITATION INSTEAD. WILL CONTINUE PLAN OF CARE.
--- NOTE | 2022-04-16 23:00 | NUR ---
PT SITTING UP IN BED FOWLERS POSITION WATCHING TV ON 5L O2 OXYMASK, SPO2 89-90%. PT DENIES SHORTNESS OF BREATH AT THIS TIME WHEN ASKED BUT REPORTS ANXIETY. PRN ATIVAN ADMINISTERED (SEE MAR). PT REPORTS NO FURTHER NEEDS AFTERWARDS AND REMAINS RESTING IN BED WATCHING TV. CALL LIGHT IN REACH, WILL CONTINUE PLAN OF CARE.
--- NOTE | 2022-04-17 00:15 | NUR ---
PT CALL LIGHT USED, PT SITTING UP IN BED SEMI-FOWLERS AND REPORTED HAVING A HEADACHE 6/10, SHORTNESS OF BREATH, AND ANXIETY. PT REQUESTED PRN ANXIETY AND PAIN MEDICATION. PRN MORPHINE AND ATIVAN ADMINISTERED (SEE MAR). PT THEN PROVIDED WITH A WASHCLOTH FOR HER HANDS AND FACE PER HER REQUEST. PT RESTING IN BED AFTERWARDS AND REPORTS NO FURTHER NEEDS. PT DENIES WANTING TO USE HER HOME BIPAP AT THIS TIME AND WISHES TO STAY ON THE OXYMASK. WILL CONTINUE PLAN OF CARE. CALL LIGHT IN REACH, BED IN LOWEST POSITION.
--- NOTE | 2022-04-17 01:50 | NUR ---
PT LAYING IN BED SLEEPING OXYMASK OFF FACE. PT AWOKE AT THIS TIME AND REQUESTED ICE WATER AND SODA. BOTH PROVIDED TO THE PT, PT DENIED SHORTNESS OF BREATH, PAIN, OR ANXIETY AT THIS TIME. PT PLACED HER OXYMASK BACK ON AND IS NOW BACK ON 5L. PT RETURNED BACK TO SLEEP, SPO2 87%, PT IN NO APPARENT DISTRESS AND REPORTS NO NEEDS, WILL CONTINUE PLAN OF CARE.
--- NOTE | 2022-04-17 04:50 | NUR ---
CALL LIGHT USED BY PT. PT INFORMED THIS RN THAT SHE HAD WOKEN UP AND WAS INCONTINENT OF URINE. PT ALSO REPORTED SHORTNESS OF BREATH AT THIS TIME WHILE ON 5L O2 OXYMSAK, SPO2 87-90%. PRN MORPHINE ADMINISTERED (SEE MAR). RN MARKY THEN IN TO ASSISTED WITH A BED CHANGE. PERICARE PROVIDED, NEW ATTENDS IN PLACE WELL. PT REPOSITIONED UP IN BED AND IS NOW SITTING UP. PT HAD A SMALL BOUT OF NAUSEA AND EMESIS AFTER BEING SAT UP. PRN ZOFRAN AND PRN ATIVAN ADMINISTERED FOR NAUSEA AND ANXIETY (SEE MAR). NEW GOWN PLACED ON PT. PT NOW RESTING IN BED SEMI-FOWLERS, PT REPORTS NO FURTHER NEEDS AT THIS TIME. CALL LIGHT IN REACH, BED IN LOWEST POSTIION, WILL CONTINUE PLAN OF CARE.
--- NOTE | 2022-04-17 05:42 | NUR ---
PT LAYING IN BED SLEEPING AT THIS TIME ON 5L O2 NC. PT IN NO APPARENT DISTRESS AT THIS TIME, NO NEEDS ASSESSED. PT LEFT UNDISTURBED, WILL CONTINUE PLAN OF CARE.
--- NOTE | 2022-04-17 06:33 | NUR ---
PT RESTING IN BED AT THIS TIME ON 5L O2. PT AWOKE BRIEFLY AND REQUESTED TO HAVE THE OXYMASK INSTEAD OF THE NASAL CANNULA. PT PLACED BACK ON 5L O2 OXYMASK. PT REPORTS NO FURTHER NEEDS AT THIS TIME AND RETURNED BACK TO SLEEP. CALL LIGHT IN REACH, WILL CONTINUE PLAN OF CARE.
--- NOTE | 2022-04-17 07:32 | NUR ---
RESPONDED TO PT CALL LIGHT. PT IN ROOM TREMULOUS WITH RESPIRATORY RATE INT HE 30S. OXYGNE PULLED OF. PT GIVEN 10 MG OF SUBLINGUAL MORPHINE AND PRN IV ATIVAN AT THIS TIME (SEE EMAR). 5 L OM PLACED BACK O NPT FOR COMFORT. SPO2 = 78%
--- NOTE | 2022-04-17 10:08 | NUR ---
IN TO CHECK ON PT. PT PALE, STRUGGLING TO BREATH. GIVEN PRN MORPHINE FOR COMFORT (SEE EMAR). CAREGIVER PADDY CALLED AND GIVEN AN UPDATE. PADDY NOW AT PT BEDSIDE.
--- NOTE | 2022-04-17 11:17 | NUR ---
PT AWOKE. WOPRKING HARD TO BREATH. PRN MEDICAITON GIVEN FOR COMFORT. PT REQUESTED SIPS OF WATER. NATASHA AT PT BESIDE. WILL CONTINUE TO MONITOR.
--- NOTE | 2022-04-17 12:26 | NUR ---
PT GIVEN PRN MORPHINE AND REPOSTIONED IN BED. CAREGIVERS AT PT BEDSIDE.
--- NOTE | 2022-04-17 14:00 | NUR ---
HOSPICE TRAY ORDERED FOR GUESTS IN ROOM . PT REPOSITIONED IN BED. INCONTINENT CARE PROVIDED.
--- NOTE | 2022-04-17 16:20 | NUR ---
PRN MORPHINE ADMINSTERED AND PT REPOSITIONED. CAREGIVERS REMAIN AT PT BEDSIDE.
--- NOTE | 2022-04-17 20:00 | NUR ---
ARRIVED TO SHIFT, RECIEVED REPORT FROM DAY SHIFT, ASSESSMENT COMPLETED ON PT, PT CURRENTLY ON 5 LPM O2 VIA OXYMASK, OBTUNDED, GSC OF 8, APPEARS COMFORTABLE, SNORING RESPIRATIONS, RT IN ROOM TO DO ASSESSMENT. CAREGIVERS AT BEDSIDE
--- NOTE | 2022-04-17 20:45 | NUR ---
BANBURY OPERATOR SPOKE WITH DR MONACO REGARDING PT'S OXYGEN DEMANDS, EXPLAINED THAT PT IS VERY OBTUBED, UNRESPONSIVE TO VERBAL OR PHYSICAL STIMULI, PER DR MONACO OKAY TO REMOVE OXYMASK. PT TAKEN FROM 5 LPM O2 VIA OXYMASK TO ROOM AIR. RT CALLED TO UPDATE
--- NOTE | 2022-04-17 21:02 | NUR ---
DR MONACO AND RESIDENTIAL ENERGY AUDITOR NOTIFIED OF PT'S PASSING, DR MONACO WILL COME AND PRONOUNCE. CAREGIVER COMING BACK FROM GETTING FOOD AND UPDATED ON PT'S PASSING.
--- NOTE | 2022-04-17 21:20 | NUR ---
DR MONACO IN TO PRONOUNCE PT , [id number], CHAPALIN IN WITH FAMILY AND CAREGIVERS. EDUCATION PROVIDED TO FAMILY AND CAREGIVERS ON DYING PROCESS AND WHY OXYGEN WAS REMOVED IN A COMFORT CARE SITUATION SUCH THE PT'S. FAMILY, CAREGIVERS, AND CHAPALIN AT BEDSIDE WITH PT
--- NOTE | 2022-04-17 21:52 | NUR ---
Meet with caregivers Called german assisted relase of the body
--- NOTE | 2022-04-17 22:17 | NUR ---
BELONGINGS COMPILDED, [place] AND CPAP ONLY BELONGINGS FOUND, CAREGIVERS STATED THEY WILL TAKE THEM. [employer] ARRIVED, POST MORTUM CARE PROVIDED, IV REMOVED, NO OTHER TUBES OR LINES TO REMOVED. ASSISTED CHAPALIN AND [employer] EMPLOYEE WITH MOVING PT FROM BED TO COT FOR TRANSPORT.
--- NOTE | 2022-04-17 22:29 | NUR ---
PT LEFT WITH [employer], CAREGIVERS LEFT, TOOK PT BELONGINGS. NO BELONGINS FOUND IN ROOM.
--- NOTE | 2022-04-18 12:32 | EKG ---
[facility] [address] [place] [address] Signed Normal sinus rhythm Right axis deviation Possible Right ventricular hypertrophy Nonspecific ST and T wave abnormality Abnormal ECG When compared with ECG of 16-APR-2022 17:21, (Unconfirmed) Significant changes have occurred Confirmed by SHAHZAD MONACO MD ([id number]) on 04/18/2022 12:32:52 PM Electronically Signed By: SHAHZAD MONACO MD 04/18/22 1232 PATIENT NAME: KEO BARRAZA VIK Electrocardiogram DATE OF : 61 PHYSICIAN: SHAHZAD MONACO MD REPORT #: [id number] REPORT IS CONFIDENTIAL AND NOT TO BE RELEASED WITHOUT AUTHORIZATION
--- NOTE | 2022-04-18 12:32 | EKG ---
[facility] [address] [place] [address] Signed Poor data quality, interpretation may be adversely affected Suspect arm lead reversal, interpretation assumes no reversal Normal sinus rhythm Right axis deviation Pulmonary disease pattern Right ventricular hypertrophy ST \T\ T wave abnormality, consider anterolateral ischemia Abnormal ECG No previous ECGs available Confirmed by SHAHZAD MONACO MD ([id number]) on 04/18/2022 12:32:43 PM Electronically Signed By: SHAHZAD MONACO MD 04/18/22 1232 PATIENT NAME: KEO BARRAZA Electrocardiogram DATE OF : 61 PHYSICIAN: SHAHZAD MONACO MD REPORT #: [id number] REPORT IS CONFIDENTIAL AND NOT TO BE RELEASED WITHOUT AUTHORIZATION
== END 2022-04-17 20:53 ==
LOC: ED 17:20 → CCU 17:21
PROVIDERS: ADMIT Internal Medicine; ATTEND Internal Medicine
DX: I27.0 Primary pulmonary hypertension (principal); F31.9 Bipolar disorder, unspecified; F43.10 Post-traumatic stress disorder, unspecified; J96.11 Chronic respiratory failure with hypoxia; E03.9 Hypothyroidism, unspecified; J44.9 Chronic obstructive pulmonary disease, unspecified; E66.2 Morbid (severe) obesity with alveolar hypoventilation; K21.9 Gastro-esophageal reflux disease without esophagitis; I50.22 Chronic systolic (congestive) heart failure; X58.XXXA Exposure to other specified factors, initial encounter; Z87.891 Personal history of nicotine dependence; Z88.2 Allergy status to sulfonamides; Z88.1 Allergy status to other antibiotic agents; Z88.0 Allergy status to penicillin; Z79.82 Long term (current) use of aspirin; Z20.822 Contact with and (suspected) exposure to COVID-19
CPT/HCPCS: 36415; 71045; 80053; 83880; 84484; 85025; 85379; 87502; 93005; 93010; 94640; 94760; A9270; C9803; J2060; J2270; U0003